=== PATIENT | female | born 1990 | race African-American/Black ===

== ENCOUNTER 2023-09-15 20:37 | Outpatient (REF) | payer OTHER, SELFPAY | END 2023-09-15 20:38 | disposition home or self-care (01) | LOC: LAB 20:37 | PROVIDERS: PCP Physician Assistant; Visit Provider Physician Assistant | DX: Z01.419 Encounter for gynecological examination (general) (routine) without abnormal findings (principal) | CPT/HCPCS: 88175 ==

== ENCOUNTER 2024-01-16 22:58 | Emergency (ER) | payer OTHER, SELFPAY ==
[2024-01-16 23:09] VITALS: BP 131/83; PULSE 84; TEMP 36.8; O2SAT 99; BMI 29.2
[2024-01-16 23:17] VITALS: O2SAT 97
[2024-01-16 23:18] VITALS: BP 121/83; O2SAT 97
[2024-01-16 23:20] VITALS: O2SAT 98
[2024-01-16 23:30] VITALS: BP 119/84; O2SAT 97
--- NOTE | 2024-01-16 23:48 | ED.GENADUL1 ---
HPI HPI - General Adult General Chief complaint: Recheck/Abnormal Lab/Rx Stated complaint: HIGH BP-10 WEEKS PREG Time Seen by Provider: 01/16/24 23:15 Source: patient Mode of arrival: walk-in Limitations: no limitations History of Present Illness HPI narrative: The patient is a 33-year-old G4, P3 female presenting to the emergency department for concern of hypertension. The patient is approximately 10 weeks . She is concerned that her blood pressure is too high. Patient states that during her first , 11 years ago, she had to be hospitalized for high blood pressure. But the following 2 pregnancies she did not have a problem. Patient denies that she drinks any caffeinated beverages such as soda, energy drinks, coffee, or tea. Patient states that she does not use any stimulants. Patient indicates however she does eat chips and a lot of salty foods. Patient at this time is complaining of a dull achy headache in the occiput area of her head. This has been going on for the last couple of days. She took 2 doses of extra strength Tylenol yesterday. It did help with her headache but she states when she gets up and starts moving around again it begins to hurt. The patient states that usually she has low blood pressure and states that her blood pressures usually 97 over 70s. The patient did just purchase a new blood pressure cuff. But today while she was at work, she checked her blood pressure on the machine at [facility]. Her systolic blood pressure was 131 and then upon recheck it was 128. The patient denies any blurry vision, double vision, loss of vision. There is no nausea or vomiting. She has no chest pain or shortness of breath. She has no confusion, trouble thinking, trouble concentrating, numbness or weakness in her extremities. Patient does not have any known history of aneurysms. She states that she is particularly concerned because her mom just in November from hypertension and complications thereof. In reference to the patient's , she is not having any abdominal or pelvic pain. No vaginal discharge or odor. Patient is not having any type of low back pain. 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 Valdez next Friday. Related Data Allergies Allergy/AdvReac Type Severity Reaction Status Date / Time No Known Drug Allergies Allergy Verified 01/16/24 23:08 Opioid HPI Opioid Management Most Recent Opioid Data: Last Pain Scale 4 01/16/24 23:21 01/16/24 Last ED Pain Assessment 01/16/24 23:21 Review of Systems ROS Narrative 10 Systems were reviewed, and unless noted in the HPI, all other systems are reviewed, unremarkable, or noncontributory. [facility] Social History Little interest or pleasure in doing things: not at all Feeling down, depressed, or hopeless: not at all Exam Narrative Exam Narrative: Prior to examining the patient, I have washed with hospital approved and provided Antiseptic Hand Medical Policy Specialist and have also applied gloves.? Prior to touching the patient, I asked for consent to examine the patient.? General: Alert and oriented, well nourished, mild distress. No neck pain or stiffness. Nontoxic. Eye: PERRL, EOMI, normal conjunctiva. 4 mm and reactive HENT: Normocephalic, normal hearing, moist oral mucosa, no scleral icterus, no sinus tenderness. Tympanic membranes are not red, dull, bulging. Neck: Supple, non-tender, no carotid bruits, no JVD, no lymphadenopathy. Lungs: Clear to auscultation and percussion, non-labored respiration. Heart: Normal rate, regular rhythm, no murmur, gallop or edema. Abdomen: Soft, non-tender, non-distended, normal bowel sounds, no masses. Musculoskeletal: Normal range of motion and strength, no tenderness or swelling. Skin: Skin is warm, dry and pink, no rashes or lesions. Neurologic: Awake, alert, and oriented X3, CN II-XII intact. Psychiatric: Cooperative, appropriate mood and affect.? Following the conclusion of the examination, I have washed my hands thoroughly after removing examination gloves. Constitutional Vital Signs, click to edit/add: Last Vital Signs Temp 98.2 F 01/16/24 23:09 Pulse 84 01/16/24 23:09 Resp 18 01/16/24 23:09 BP 119/84 01/16/24 23:30 Pulse Ox 97 01/16/24 23:30 O2 Del Method Room Air 01/16/24 23:09 Course Course Hospital Course: I introduced myself to the patient and began talking with her. She reviewed some of her results with me. She expressed some concerns of why she wanted to be evaluated for hypertension. At this time what I have offered the patient is to do screening laboratories and a urine looking for some hypertensive markers. But the patient at this time states that she feels better after talking with me and will begin to use her newly purchased home cuff to evaluate her blood pressure. I advised her to take it to her veneer stock layer appointment so that she can compare it to that particular office. I did tell the patient that she would not have to worry unless the pressure got higher particularly over 140. I did give the patient some advice about abstaining from salty foods as that might help improve her blood pressure. The patient appears nontoxic in no acute distress and wants to decline any additional studies at this time. I am going to give the patient a work note. Vital Signs Vital signs: Vital Signs Temperature 98.2 F 01/16/24 23:09 Pulse Rate 84 01/16/24 23:09 Respiratory Rate 18 01/16/24 23:09 Blood Pressure 131/83 01/16/24 23:09 Pulse Oximetry 99 01/16/24 23:09 Oxygen Delivery Method Room Air 01/16/24 23:09 Temperature 98.2 F 01/16/24 23:09 Pulse Rate 84 01/16/24 23:09 Respiratory Rate 18 01/16/24 23:09 Blood Pressure 119/84 01/16/24 23:30 Pulse Oximetry 97 01/16/24 23:30 Oxygen Delivery Method Room Air 01/16/24 23:09 Medical Decision Making MDM Narrative Medical decision making narrative: In summary, the patient is a pleasant 33-year-old female presenting for evaluation of hypertension in the setting of first trimester . The patient actually has normal tensive here in the emergency department and we have checked her twice. Patient shows us the values of her blood pressure from earlier today and there is only mild elevation in her blood pressure with a systolic of 131 and 128. The patient does not have any neurologic symptoms at this time. Additional historian: None Plan: Patient will go home and continue to check her blood pressure daily and record them for Dr. Valdez. Patient is told to stay home from work today and relax. Patient is to return if her symptoms worsen or change but at this time she does not need an emergent CT scan of her brain and she is declining blood work and urine analysis. Differential Diagnosis Differential Diagnosis: Hypertensive, hypertensive urgency, hypertensive emergency, preeclampsia Medical Records Medical records reviewed: Yes I reviewed the patient's medical records Lab Data Lab results reviewed: Yes I reviewed the patient's lab results Discharge Plan Discharge Chief Complaint: Recheck/Abnormal Lab/Rx Clinical Impression: Blood pressure check Patient Disposition: Home, Self-Care Time of Disposition Decision: 23:49 Condition: Good Print Language: Luxembourgish Instructions: How to Take a Blood Pressure Reading (ED), Hypertension During (ED) Additional Instructions: You may take Tylenol up to 4 times per day while you are taking the extra-strength formulation. Referrals: Parish Valdez DO [Physician] - 1 week Hilary Aviles NP [Primary Care Provider] - 1 week
--- NOTE | 2024-01-16 23:57 | PC.NURSE ---
i gave this patient verbal and paper discharge orders, this patient voices yes to understanding these. at time of discharge this patient voices no concerns and shows no signs of distress
== END 2024-01-17 00:07 | disposition home or self-care (01) ==
PROVIDERS: Emergency Provider Emergency Medicine; PCP Nurse Practitioner
DX: Z03.79 Encounter for other suspected maternal and fetal conditions ruled out (principal)
CPT/HCPCS: 99281

== ENCOUNTER 2024-01-23 09:39 | Outpatient (OUT) | payer OTHER, SELFPAY ==
--- NOTE | 2024-01-23 09:44 | US_ITS ---
[address] [address] Patient Name: BINTA TANNER MRN: [id number] date: 1990 Sex: F Assigned Patient Location: [facility] Current Patient Location: [facility] Accession/Order Number: [id number] Exam Date: 01/23/2024 09:45 Report Date: 01/23/2024 10:28 At the request of: CHAPINCITO DOMINGO Procedure: US OB transvaginal EXAMINATION: US OB transvaginal HISTORY: MISSED MENSES COMPARISON: No relevant comparison available. FINDINGS: Spears intrauterine gestation Gestational sac: 5.3 cm, 11 weeks 2 days CRL: 4.16 cm, 7 weeks 0 days Yolk sac: 7.4 mm Heart rate: 162 bpm The uterus is normal, anteverted, anteflexed The ovaries are normal in appearance. Clinical age: 11 weeks 2 days Clinical ALEJANDRA: 08/11/2024 Ultrasound age: 11 weeks 0 days Ultrasound ALEJANDRA: 08/13/2024 US/US OB transvaginal IMPRESSION: Viable spears intrauterine gestation measuring 11 weeks 0 days Electronically authenticated by: SESAR REYNOLDS Date: 01/23/2024 10:28
--- OUTSIDE RECORDS SUMMARY | 2024-01-23 09:59 | XMS_ITS | CCD ---
Author Organization [facility] Care Team Providers Care Debt And Budget Counselor Name Role Phone ADAMOWICZ, SAMARA J Unavailable Unavailable ADAMOWICZ, SAMARA J Unavailable Unavailable ADAMOWICZ, SAMARA J Unavailable Unavailable ADAMOWICZ, SAMARA J Unavailable Unavailable ADAMOWICZ, SAMARA J Unavailable Unavailable ADAMOWICZ, SAMARA J Unavailable Unavailable ADAMOWICZ, SAMARA J Unavailable Unavailable ADAMOWICZ, SAMARA J Unavailable Unavailable SEBASTIAN HERRING Attending Unavailable SEBASTIAN HERRING Consulting Unavailable SEBASTIAN HERRING Admitting Unavailable [facility] [place] VELAZ[place] Primary Care Unavailable Traci INTERIOR SYSTEMS CARPENTER-MANUFACTURING ANALYST, Hilary A Primary Care Provi lazarus DONNA DON Attending Unavailable TRACI, HILARY A Attending Unavailable TRACI, HILARY A Referring Unavailable TRACI, HILARY A Primary Care Unavailable TRACI, HILARY A Attending Unavailable TRACI, HILARY A Referring Unavailable TRACI, HILARY A Primary Care Unavailable TRACI, HILARY A Attending Unavailable TRACI, HILARY A Referring Unavailable TRACI, HILARY A Primary Care Unavailable LYNDSEY DOE Attending Unavailable TRACI, HILARY A Referring Unavailable TRACI, HILARY A Primary Care Unavailable TRACI, HILARY A Referring Unavailable TRACI, HILARY A Primary Care Unavailable TRACI, HILARY A Referring Unavailable TRACI, HILARY A Primary Care Unavailable TRACI, HILARY A Referring Unavailable TRACI, HILARY A Primary Care Unavailable SHARDA MONTIEL Referring Unavailable TRACI, HILARY A Primary Care Unavailable TRACI, HILARY A Referring Unavailable TRACI, HILARY A Primary Care Unavailable SHARDA MONTIEL B Attending Unavailable TRACI, HILARY A Referring Unavailable TRACI, HILARY A Primary Care Unavailable TRACI, HILARY A Referring Unavailable TRACI, HILARY A Primary Care Unavailable TRACI, HILARY A Referring Unavailable TRACI, HILARY A Primary Care Unavailable JUAREZ, GLASS Referring Unavailable TRACI, HILARY A Primary Care Unavailable JUAREZ, GLASS Referring Unavailable TRACI, HILARY A Primary Care Unavailable JUAREZ, GLASS Referring Unavailable TRACI, HILARY A Primary Care Unavailable LYNDSEY DOE Attending Unavailable LYNDSEY DOE Referring Unavailable RTACI, HILARY A Primary Care Unavailable DOMINIQUE MOYA Attending Unavailable TRACI, HILARY A Referring Unavailable TRACI, HILARY A Primary Care Unavailable TRACI, HILARY A Primary Care Unavailable RAULITO SIDDIQUI Attending Unavaila brianda Aviles INTERIOR SYSTEMS CARPENTER-MANUFACTURING ANALYST, Hilary A Primary Care Provi lazarus Allergies Allergy Classification Reported Allergen(s) Allergy Type Date of Onset Reaction(s) Facility (15 sources) Sertraline; Translations: [SERTRALINE] Drug Allergy 11-09-2018 [facility] Medications Current Medications Medication Drug Class(es) Dates Sig (Normalized) Sig (Original) [id number] 200 actuat albuterol 0.09 mg/actuat metered dose inhaler (9 sources) beta2-Adrenergic Agonist Start: 11-26-2021 End: 02-20-2023 take 2 puff(s) by inhalation every four hours as needed for wheezing albuterol (PROVENTIL HFA;VENTOLIN HFA) 90 mcg/actuation inhaler Indications: Viral URI with cough Inhale 2 puffs every 4 (four) hours as needed for wheezing. 18 g 0 11/26/2021 02/20/2023 Discontinued Start: 01-22-2021 End: 02-20-2023 take 2 puff(s) by inhalation every six hours as needed for wheezing albuterol (PROVENTIL HFA;VENTOLIN HFA) 90 mcg/actuation inhaler Indications: Reactive airway disease with acute exacerbation, unspecified asthma severity, unspecified whether persistent , Shortness of breath , COVID-19 Inhale 2 puffs every 6 (six) hours as needed for wheezing or shortness of breath. 18 g 0 02/20/2023 Active ascorbic acid 250 mg oral tablet (6 sources) Vitamin C Start: 05-08-2022 take 1 tablet by mouth in the morning ascorbic acid, vitamin C, (vitamin C) 250 mg tablet Take 1 tablet (250 mg total) by mouth in the morning. Take with iron.. 90 tablet 3 05/08/2022 Active azaTHIOprine 50 mg oral tablet (12 sources) Purine Antimetabolite Start: 10-31-2023 take 3 tablets by mouth in the morning azaTHIOprine (IMURAN) 50 mg tablet Take 3 tablets (150 mg total) by mouth in the morning. 270 tablet 1 10/31/2023 Active Start: 09-07-2021 take 3 tablets by mo ut in the morning azaTHIOprine (IMURAN) 50 mg tablet Indications: Crohn's disease of both small and large intestine with intestinal obstruction (CMS-HCC) Take 3 tablets (150 mg total) by mouth in the morning. 90 tablet 3 09/07/2021 Active benzonatate 100 mg oral capsule (6 sources) Non-narcotic Antitussive Start: 11-26-2021 take 1 capsule by mouth every eight hours benzonatate (TESSALON PERLES) 100 mg capsule Take 1 capsule (100 mg total) by mouth every 8 (eight) hours. 21 capsule 0 11/26/2021 Active cholecalciferol 0.125 mg oral tablet (6 sources) Vitamin D Start: 10-01-2021 take 1 tablet by mouth in the morning cholecalciferol, vitamin D3, 5,000 units tablet Take 1 tablet (5,000 Units total) by mouth in the morning. 90 each 3 10/01/2021 Active citalopram 20 mg oral tablet (6 sources) Serotonin Reuptake Inhibitor Start: 09-17-2023 take 1.5 tablets by mouth in the morning citalopram (CeleXA) 20 mg tablet Indications: Current moderate episode of major depressive disorder without prior episode (CMS-HCC) Take 1.5 tablets (30 mg total) by mouth in the morning. 30 tablet 2 09/17/2023 Active 1 ml EPINEPHrine 1 mg/ml injection (1 source) alpha-Adrenergic Agonist, beta-Adrenergic Agonist, Catecholamine Start: 02-06-2023 End: 02-07-2023 EPINEPHrine (ADRENALIN) 1 mg/mL injection FOR ANAPHYLAXIS 0.3 mg folic acid 1 mg oral tablet (13 sources) Start: 10-31-2023 take 1 tablet by mouth in the morning folic acid (FOLVITE) 1 mg tablet Take 1 tablet (1 mg total) by mouth in the morning. 90 tablet 2 10/31/2023 Active Start: 08-02-2021 End: 02-20-2023 take 1 tablet by mouth in the morning folic acid (FOLVITE) 1 mg tablet Take 1 tablet (1 mg total) by mouth in the morning. 90 tablet 2 02/20/2023 Active folic acid 0.4 mg / vitamin b12 1 mg sublingual tablet (3 sources) Vitamin B12 cyanocobalamin/f olic acid (vitamin B05-janse acid) 1,000-400 mcg lozenge B12 0 Active 12 hr guaiFENesin 600 mg extended release oral tablet (1 source) Start: 02-20-19 End: 02-27-19 take 1 tablet by mouth once guaiFENesin (MUCINEX) 600 mg tablet extended release 12hr Indications: Reactive airway disease with acute exacerbation, unspecified asthma severity, unspecified whether persistent , Sinusitis, unspecified chronicity, unspecified location Take 1 tablet (600 mg total) by mouth every 12 (twelve) hours for 7 days. 14 tablet 0 02/20/2023 02/27/2023 Active inFLIXimab 100 mg injection (12 sources) Tumor Necrosis Factor Muriel inFLIXimab (REMICADE ) 10 mg/mL injection Infuse 5 mg/kg into a venous catheter See Admin Instructions. Every 6 weeks Active inFLIXimab-dyyb (INFLECTRA) 100 mg injection Indications: Crohn's disease Infuse 5 mg/kg into a venous catheter once Indications: Crohn's disease. Every 6 weeks Active methylPREDNISolone 125 mg injection (1 source) Corticosteroid Start: 02-06-2023 End: 02-07-2023 methylPREDNISolone sod suc(PF) (Solu-MEDROL) injection 125 mg ondansetron 4 mg oral tablet (3 sources) Serotonin-3 Receptor Antagonist take 1 tablet by mouth every eight hours as needed for nausea and vomiting ondansetron (ZOFRAN) 4 mg tablet Take 1 tablet (4 mg total) by mouth every 8 (eight) hours as needed for nausea or vomiting. Active vitamin b12 1 mg oral tablet (7 sources) Vitamin B12 Start: 05-28-2020 End: 02-20-2023 take 2 tablets by mouth in the morning vitamin B-12 1000 MCG tablet Take 2 tablets (2,000 mcg total) by mouth in the morning. 90 tablet 2 02/20/2023 Active WESTAB PLUS 27 mg iron- 1 mg tablet (6 sources) Start: 06-07-2022 WESTAB PLUS 27 mg iron- 1 mg tablet Completed/Discontinued Medications Medication Drug Class(es) Dates Sig (Normalized) Sig (Original) ferric carboxymaltose (INJECTAFER) 750 mg in sodium chloride 0.9 % 100 mL IVPB (1 source) Start: 02-06-2023 End: 02-06-2023 ferric carboxymaltose (INJECTAFER) 750 mg in sodium chloride 0.9 % 100 mL IVPB inFLIXimab-dyyb (INFLECTRA) 400 mg in sodium chloride 0.9 % 250 mL IVPB (1 source) Start: 04-21-2023 End: 04-21-2023 inFLIXimab-dyyb (INFLECTRA) 400 mg in sodium chloride 0.9 % 250 mL IVPB inFLIXimab-dyyb (INFLECTRA) 5 mg/kg = 400 mg in sodium chloride 0.9 % 250 mL IVPB (1 source) Start: 12-12-2023 End: 12-12-2023 400 mg (rounded from 381 mg = 5 mg/kg 76.2 kg), intravenous, Once, On Fri12/12/23 at 1115, For 1 dose, May have accelerated infusion 100ml/hr for 15 minutes then 300 ml for the remaining 45 minutes (to infuse over an hour). Infuse over at least 2 hours: For 250 mL total volume: 10 mL/hr x 15 min, then 20 mL/hr x 15 min, then 40 mL/hr x 15 min, then 80 mL/hr x 15 min, then 150 mL/hr x 30 min, then 250 mL/hr until infusion complete. Adjust rates respectively for other volumes. Look-alike/sound-ali ke medication - verify indication for use. Administer using 0.2 - 1.2 micron filter. 1000 ml sodium chloride 9 mg/ml injection (3 sources) Start: 04-21-2023 End: 04-21-2023 sodium chloride 0.9 % infusion Start: 02-06-2023 End: 02-07-2023 sodium chloride 0.9 % bolus Problems Active Problems Problem Classification Problem Date Documented Da te Episodic/Chronic Anxiety disorders (15 sources) Anxiety; Translations: [Anxiety disorder, unspecified] Onset: 12-14-2018 12-14-2018 Chronic Asthma (4 sources) Reactive airway disease; Translations: [Unspecified asthma with (acute) exacerbation] Onset: 02-20-2023 02-20-2023 Chronic Deficiency and other anemia (16 sources) Iron deficiency anemia due to blood loss; Translations: [Iron deficiency anemia secondary to blood loss (chronic)] Onset: 07-17-2018 02-06-2023 Chronic Deficiency and other anemia (2 sources) Iron deficiency anemia secondary to blood loss (chronic); Translations: [Iron deficiency anemia secondary to blood loss (chronic)] Onset: 07-17-2018 Chronic Deficiency and other anemia (16 sources) Iron deficiency anemia; Translations: [Iron deficiency anemia, unspecified] Onset: 08-28-2020 02-06-2023 Episodic Immunizations and screening for infectious disease (1 source) Encounter for screening for human papillomavirus (HPV); Translations: [ENC SCREENING HUMAN PAPILLOMAVIRUS] Onset: 05-04-2022 Episodic Malaise and fatigue (1 source) Fatigue; Translations: [Chronic fatigue, unspecified] 12-01-2023 Chronic Mood disorders (20 sources) Reactive depression (situational); Translations: [Major depressive disorder, single episode, unspecified] Onset: 11-09-2018 11-09-2018 Chronic Other aftercare (1 source) Encounter for therapeutic drug level monitoring; Translations: [Encounter for therapeutic drug level monitoring] Onset: 10-31-2023 Episodic Other connective tissue disease (1 source) Cramp in lower limb; Translations: [Cramp and spasm] 12-01-2023 Episodic Other gastrointestinal disorders (16 sources) Malabsorption - iron; Translations: [Intestinal malabsorption, unspecified] Onset: 08-28-2020 02-06-2023 Chronic Other gastrointestinal disorders (1 source) Intestinal malabsorption, unspecified; Translations: [Intestinal malabsorption, unspecified] Onset: 08-28-2020 Chronic Other gastrointestinal disorders (1 source) Constipation, unspecified; Translations: [Constipation, unspecified] Onset: 01-03-2024 Episodic Other gastrointestinal disorders (1 source) Constipation Onset: 01-03-2024 Episodic Other inflammatory condition of skin (12 sources) Scalp psoriasis; 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, unspecified] Onset: 12-14-2018 12-14-2018 Chronic Other screening for suspected conditions (not mental disorders or infectious disease) (4 sources) Encounter for screening for malignant neoplasm of cervix; Translations: [ENC SCREENING MALIG NEOPLASM CERV] Onset: 04-30-2022 Episodic Other upper respiratory infections (2 sources) Sinusitis; Translations: [Chronic sinusitis, unspecified] Onset: 02-20-2023 02-20-2023 Chronic Regional enteritis and ulcerative colitis (19 sources) Crohn's disease of small AND large intestines; Translations: [Crohn's disease of both small and large intestine with intestinal obstruction] Onset: 03-03-2018 03-03-2018 Chronic Residual codes; unclassified (1 source) Noncompliance with treatment; Translations: [Noncompliance] 12-01-2023 Episodic Unclassified (1 source) FMLA Onset: 09-03-2023 Unclassified (2 sources) Outpatient Infusion Onset: 02-06-2023 Unclassified (1 source) Constipation, Early Onset: 01-03-2024 Viral infection (1 source) COVID-19; Translations: [COVID-19] Onset: 01-22-2021 Past or Other Problems Problem Classification Problem Date Documented Da te Episodic/Chronic Deficiency and other anemia (12 sources) Microcytic anemia; Translations: [Iron deficiency anemia, unspecified] Onset: 07-17-2018 07-17-2018 Episodic Deficiency and other anemia (12 sources) Anemia; Translations: [Anemia, unspecified] Onset: 07-02-2019 07-02-2019 Episodic Deficiency and other anemia (2 sources) Iron deficiency anemia, unspecified; Translations: [Iron deficiency anemia, unspecified] Onset: 08-28-2020 Episodic Intestinal obstruction without hernia (20 sources) Intestinal obstruction; Translations: [Unspecified intestinal obstruction, unspecified as to partial versus complete obstruction] Onset: 10-17-2017 Resolved: 08-29-2020 08-29-2020 Episodic Mood disorders (12 sources) Mood disorders Onset: 11-23-2020 Resolved: 09-17-2023 11-23-2020 Nutritional deficiencies (13 sources) Cobalamin deficiency; Translations: [Deficiency of other specified B group vitamins] Onset: 07-08-2019 07-08-2019 Episodic Other bone disease and musculoskeletal deformities (12 sources) Bone cyst of foot; Translations: [Other cyst of bone, unspecified ankle and foot] Onset: 11-11-2022 11-11-2022 Episodic Other complications of (12 sources) Anemia; Translations: [Anemia complicating , unspecified trimester] Onset: 05-15-2017 Resolved: 04-21-2018 04-21-2018 Chronic Other complications of (12 sources) History of fourth degree perineal laceration; Translations: [Supervision of with other poor reproductive or obstetric history, unspecified trimester] Onset: 06-21-2017 Resolved: 08-29-2020 08-29-2020 Episodic Other complications of (12 sources) History of gynecological disorder; Translations: [Supervision of with other poor reproductive or obstetric history, unspecified trimester] Onset: 06-21-2017 Resolved: 08-29-2020 08-29-2020 Episodic Other connective tissue disease (12 sources) Pain in both feet; Translations: [Pain in right foot] Onset: 12-14-2018 12-14-2018 Episodic Other connective tissue disease (12 sources) Chronic pain of right foot; Translations: [Pain in right foot] Onset: 09-18-2022 09-18-2022 Episodic Other disorders of stomach and duodenum (12 sources) Internal duodenal fistula; 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] Onset: 06-04-2018 Resolved: 05-08-2022 05-08-2022 Episodic Other gastrointestinal disorders (12 sources) Diarrhea; Translations: [Diarrhea, unspecified] Onset: 10-17-2017 Resolved: 05-08-2022 05-08-2022 Episodic Other lower respiratory disease (12 sources) Cough; Translations: [Cough] Onset: 12-20-2019 Resolved: 09-27-2020 09-27-2020 Episodic Other lower respiratory disease (13 sources) Dyspnea; Translations: [Shortness of breath] Onset: 01-22-2021 Resolved: 05-08-2022 05-08-2022 Episodic Other lower respiratory disease (1 source) Shortness of breath; Translations: [Shortness of breath] Onset: 02-20-2023 Episodic Other non-traumatic joint disorders (12 sources) Pain in left knee; Translations: [Pain in joint, lower leg] Onset: 12-23-2018 12-23-2018 Episodic Other upper respiratory disease (12 sources) Congestion of nasal sinus; Translations: [Nasal congestion] Onset: 12-21-2020 12-21-2020 Episodic Other upper respiratory infections (12 sources) Sore throat symptom; Translations: [Acute pharyngitis, unspecified] Onset: 12-20-2019 Resolved: 05-08-2022 05-08-2022 Episodic Residual codes; unclassified (12 sources) Difficulty sleeping ; Translations: [Sleep disorder, unspecified] Onset: 01-13-2019 01-13-2019 Episodic Viral infection (13 sources) Disease caused by 2019-nCoV; Translations: [COVID-19] Onset: 01-22-2021 01-22-2021 Episodic Results Test Name Value Interpretation Reference Range Facility KAY FECAL OCCULT BLDon 01-02 Hemoglobin.gastro intestinal Ql (Stl) Negative Normal NEG [facility] Comment on above: Performed By: #### 2 335-8 #### [facility] ([id number]) [address] [place] [address], [place] [address] CBC AND AUTO DIFFon 12-01-19 ABSOLUTE BASOPHIL 0.0 X10E9/L Normal 0.0-0.2 [facility] Comment on above: Performed By: #### C BCA, FEPR, 2276-4 #### [facility] ([id number]) [address] [place] [address] ABSOLUTE NEUTROPHIL 1.9 X10E9/L Normal 1.5-6.6 [facility] Comment on above: Performed By: #### C BCA, FEPR, 2276-4 #### [facility] ([id number]) [address] [place] [address] Basophils/100 WBC (Bld) 0.5 % Normal [facility] Comment on above: Performed By: #### C BCA, FEPR, 2276-4 #### [facility] ([id number]) [address] [address] [place] [address] Eosinophils (Bld) [#/Vol] 0.1 10*3/uL Normal 0.0-0.4 [facility] Comment on above: Performed By: #### C CRUZ, FEPR, 2275-4 #### [facility] ([id number]) [address] [address] [place] [address] Eosinophils/100 WBC (Bld) 2.3 % Normal [facility] Comment on above: Performed By: #### C CRUZ, FEPR, 2275-4 #### [facility] ([id number]) [address] [address] [place] [address] Erythrocyte distribution width (RBC) [Ratio] 13.3 % Normal 11.5-15.0 [facility] Comment on above: Performed By: #### Elizabeth ARROYO, FEPR, 2275-4 #### [facility] ([id number]) [address] [address] [place] [address] Hematocrit (Bld) [Volume fraction] 36.2 % Normal 35-47 [facility] Comment on above: Performed By: #### Elizabeth BCA, FEPR, 2275-4 #### [facility] ([id number]) [address] [address] [place] [address] Hemoglobin (Bld) [Mass/Vol] 12.8 g/dL Normal 11.7-15.5 [facility] Comment on above: Performed By: #### Elizabeth BCA, FEPR, 2275-4 #### [facility] ([id number]) [address] [address] [place] [address] Lymphocytes (Bld) [#/Vol] 2.3 10*3/uL Normal 1.0-3.5 [facility] Comment on above: Performed By: #### Elizabeth ARROYO, FEPR, 2275-4 #### [facility] ([id number]) [address] [address] [place] [address] Lymphocytes/100 WBC (Bld) 47.4 % Normal [facility] Comment on above: Performed By: #### Elizabeth ARROYO FEPR, 2275-05 #### [facility] ([id number]) [address], [address] [place] [address] MCH (RBC) [Entitic mass] 33.2 pg Normal 27-34 [facility] Comment on above: Performed By: #### Elizabeth ARROYO FEPR, 2275- #### [facility] ([id number]) [address], [address] [place] [address] MCHC (RBC) [Mass/Vol] 35.5 g/dL Normal 32-36 [facility] Comment on above: Performed By: #### Elizabeth ARROYO FEPR, 2275- #### [facility] ([id number]) [address], [address] [place] [address] MCV (RBC) [Entitic vol] 94 fL Normal 80-100 [facility] Comment on above: Performed By: #### Elizabeth ARROYO, FEPR, 2275-05 #### [facility] ([id number]) [address], [address] [place] [address] Monocytes (Bld) [#/Vol] 0.4 10*3/uL Normal 0-0.9 [facility] Comment on above: Performed By: #### Elizabeth ARROYO, FEPR, 2275-05 #### [facility] ([id number]) [address], [address] [place] [address] Monocytes/100 WBC (Bld) 9.1 % Normal [facility] Comment on above: Performed By: #### Elizabeth ARROYO, FEPR, 2275-05 #### [facility] ([id number]) [address], [address] [place] [address] Neutrophils/100 WBC (Bld) 40.7 % Normal [facility] Comment on above: Performed By: #### C BCA, FEPR, 6-4 #### [facility] ([id number]) [address], [address] [place] [address] Platelet mean volume (Bld) [Entitic vol] 11.1 fL Normal 7-12 [facility] Comment on above: Performed By: #### Elizabeth BCA, FEPR, 2275-4 #### [facility] ([id number]) [address], [address] [place] [address] Platelets (Bld) [#/Vol] 187 10*3/uL Normal 150-450 [facility] Comment on above: Performed By: #### Elizabeth BCA, FEPR, 2275-4 #### [facility] ([id number]) [address], [facility] [address] [place] [address] RBC COUNT 3.87 X10E12/L Normal 3.80-5.20 [facility] Comment on above: Performed By: #### Elizabeth BCA, FEPR, 2275-4 #### [facility] ([id number]) [address] [facility] [address] [place] [address] WBC (Bld) [#/Vol] 4.8 10*3/uL Normal 4.0-11.0 [facility] Comment on above: Performed By: #### Elizabeth BCA, FEPR, 2275-4 #### [facility] ([id number]) [address], [address] [place] [address] FERRITINon 12-01-2023 Ferritin [Mass/Vol] 12 ng/mL Normal 11-307 [facility] Comment on above: Performed By: #### C BCA, FEPR, 2275-4 #### [facility] ([id number]) [address], [address] [place] [address] IRON PROFILEon 12-01-2023 Iron [Mass/Vol] 74 ug/dL Normal 50-170 [facility] Comment on above: Performed By: #### C BCA, FEPR, 2275-4 #### [facility] ([id number]) [address], [address] [place] [address] IRON BINDING 344 ug/dL Normal 250-425 [facility] Comment on above: Performed By: #### C BCA, FEPR, 2275-4 #### [facility] ([id number]) [address], [address] [place] [address] IRON SATURATION 21 % SATURATION Normal 15-50 [facility] Comment on above: Performed By: #### C BCA, FEPR, 2275-4 #### [facility] ([id number]) [address] [facility] [address] [place] [address] CBC AND AUTO DIFFon 24- 24 ABSOLUTE BASOPHIL 0.0 X10E9/L Normal 0.0-0.2 [facility] Comment on above: Performed By: #### C BCA, FEPR, 4 #### [facility] ([id number]) [address] [address] [place] [address] ABSOLUTE NEUTROPHIL 2.7 X10E9/L Normal 1.5-6.6 [facility] Comment on above: Performed By: #### C BCA, FEPR, 2275-4 #### [facility] ([id number]) [address], [address] [place] [address] Basophils/100 WBC (Bld) 0.4 % Normal [facility] Comment on above: Performed By: #### C BCA, FEPR, 2275-4 #### [facility] ([id number]) [address] [address] Eosinophils (Bld) [#/Vol] 0.1 10*3/uL Normal 0.0-0.4 [facility] Comment on above: Performed By: #### C BCA, FEPR, 2276-4 #### [facility] ([id number]) [address], [address] [place] [address] Eosinophils/100 WBC (Bld) 2.0 % Normal [facility] Comment on above: Performed By: #### C BCA, FEPR, 2275- #### [facility] ([id number]) [address], [address] [place] [address] Erythrocyte distribution width (RBC) [Ratio] 13.5 % Normal 11.5-15.0 [facility] Comment on above: Performed By: #### C CRUZ, FEPR, 2275-05 #### [facility] ([id number]) [address], [address] [place] [address] Hematocrit (Bld) [Volume fraction] 35.2 % Normal 35-47 [facility] Comment on above: Performed By: #### C BCA, FEPR, 2275-05 #### [facility] ([id number]) [address], [address] [place] [address] Hemoglobin (Bld) [Mass/Vol] 12.2 g/dL Normal 11.7-15.5 [facility] Comment on above: Performed By: #### C BCA, FEPR, 2275-05 #### [facility] ([id number]) [address], [address] [place] [address] Lymphocytes (Bld) [#/Vol] 1.9 10*3/uL Normal 1.0-3.5 [facility] Comment on above: Performed By: #### C BCA, FEPR, 2275-4 #### [facility] ([id number]) [address], [address] [place] [address] Lymphocytes/100 WBC (Bld) 36.8 % Normal [facility] Comment on above: Performed By: #### C BCA, FEPR, 2275-4 #### [facility] ([id number]) [address], [address] [place] [address] MCH (RBC) [Entitic mass] 31.9 pg Normal 27-34 [facility] Comment on above: Performed By: #### C CRUZ, FEPR, 2275- #### [facility] ([id number]) [address], [address] [place] [address] MCHC (RBC) [Mass/Vol] 34.5 g/dL Normal 32-36 [facility] Comment on above: Performed By: #### C BCA, FEPR, 2275- #### [facility] ([id number]) [address], [address] [place] [address] MCV (RBC) [Entitic vol] 93 fL Normal 80-100 [facility] Comment on above: Performed By: #### Elizabeth BCA, FEPR, 2275-05 #### [facility] ([id number]) [address], [address] [place] [address] Monocytes (Bld) [#/Vol] 0.4 10*3/uL Normal 0-0.9 [facility] Comment on above: Performed By: #### Elizabeth BCA, FEPR, 2275-05 #### [facility] ([id number]) [address], [address] [place] [address] Monocytes/100 WBC (Bld) 8.3 % Normal [facility] Comment on above: Performed By: #### Elizabeth BCA, FEPR, 2275-05 #### [facility] ([id number]) [address], [address] [place] [address] Neutrophils/100 WBC (Bld) 52.5 % Normal [facility] Comment on above: Performed By: #### Elizabeth BCA, FEPR, 2275- #### [facility] ([id number]) [address], [address] [place] [address] Platelet mean volume (Bld) [Entitic vol] 10.7 fL Normal 7-12 [facility] Comment on above: Performed By: #### C BCA, FEPR, 2275-4 #### [facility] ([id number]) [address], [address] [place] [address] Platelets (Bld) [#/Vol] 198 10*3/uL Normal 150-450 [facility] Comment on above: Performed By: #### C BCA, FEPR, 2275-4 #### [facility] ([id number]) [address], [facility] [address] [place] [address] RBC COUNT 3.81 X10E12/L Normal 3.80-5.20 [facility] Comment on above: Performed By: #### C BCA, FEPR, 2275-4 #### [facility] ([id number]) [address], [facility] [address] [place] [address] WBC (Bld) [#/Vol] 5.2 10*3/uL Normal 4.0-11.0 [facility] Comment on above: Performed By: #### C BCA, FEPR, 2275-4 #### [facility] ([id number]) [address], [address] [place] [address] FERRITINon 08-04-2023 Ferritin [Mass/Vol] 27 ng/mL Normal 11-307 [facility] Comment on above: Performed By: #### C BCA, FEPR, 2275-4 #### [facility] ([id number]) [address], [address] [place] [address] IRON PROFILEon 08-04-2023 Iron [Mass/Vol] 46 ug/dL Low 50-170 [facility] Comment on above: Performed By: #### C BCA, FEPR, 2275-4 #### [facility] ([id number]) [address], [address] [place] [address] IRON BINDING 273 ug/dL Normal 250-425 [facility] Comment on above: Performed By: #### C BCA, FEPR, 2276-4 #### [facility] ([id number]) [address] [place] [address] IRON SATURATION 17 % SATURATION Normal 15-50 [facility] Comment on above: Performed By: #### C BCA, FEPR, 2276-4 #### [facility] ([id number]) [address] [facility] [place] [address] M. tuberculosis stim IFN-g p carrillo (Bld)on 08-04-2023 Mitogen minus Nil Result 9.92 IU/mL Normal [facility] Comment on above: Performed By: #### 7 1775-1 #### [facility] [employer] ([id number]) [address] [facility], Nil Result 0.08 IU/mL Normal [facility] Comment on above: Result Comment: NOTE Test Performed by: [place] [address] Compounder: Celi Fernandez Ph.D.; CLIA# [id number] Performed By: #### 7 1775-1 #### [facility] [employer] ([id number]) [address] [facility], QuantiFERON-Tb Gold Plus Result Negative Normal Negative [facility] Comment on above: Result Comment: NOTE No interferon-gamma response to M. tuberculosis antigens was detected. Latent infection with M. tuberculosis is unlikely. A single negative result does not exclude infection with M. tuberculosis. In patients at high risk for M.tuberculosis infection, a second test should be considered in accordance with the 2017 ATS/IDSA/CDC Clinical Practice Guidelines for Diagnosis of Tuberculosis in Adults and Children [Damaris JOAQUIN et. al. Clin. Infect. Dis. 2017;64(2):111-115]. The reference range for the 'TB1 Ag minus Nil Result' and 'TB2 Ag minus Nil Result' is an Interferon-gamma level <0.35 IU/mL. Performed By: #### 7 1775-1 #### [employer] ([id number]) [address] [facility], TB1 Ag minus Nil Result 0.09 IU/mL Normal [facility] Comment on above: Performed By: #### 7 1775-1 #### [employer] ([id number]) [address] [facility], TB2 Ag minus Nil Result 0.01 IU/mL Normal [facility] Comment on above: Performed By: #### 7 1775-1 #### [employer] ([id number]) [address] [facility], [facility] ACOG PANEL 2: 30 to 65on 05-07-2022 . . Normal [facility] Comment on above: Result Comment: Perf ormed at: WB Performed By: #### 4 [id number] #### [facility] [address] [place] [address] Dr. Bisi Glass Age Gdln ACOG Testing Normal [facility] Comment on above: Performed By: #### 4 [id number] #### [facility] [address] [place] [address] Dr. Bisi Glass DIAGNOSIS: Comment Normal [facility] Comment on above: Result Comment: NEGA TIVE FOR INTRAEPITHELIAL LESION OR MALIGNANCY. Performed at: WB Performed By: #### 4 [id number] #### [facility] [address] [place] [address] Dr. Bisi Glass HPV Aptima Negative Normal Negative [facility] Comment on above: Result Comment: This nucleic acid amplification test detects fourteen high-risk HPV types (16,18,31,33,35,39,45,51,52,56,58,59,66,68) without differentiation. Performed at: =G Performed By: #### 4 [id number] #### [facility] [address] [place] [address] Dr. Bisi Glass HPV Genotype Reflex Comment Normal [facility] Comment on above: Result Comment: Crit eria not met, HPV Genotype not performed. Performed at: WB Performed By: #### 4 [id number] #### [facility] [address] [place] [address] Dr. Bisi Glass Methodology: Comment Normal [facility] Comment on above: Result Comment: This liquid based ThinPrep(R) pap test was screened with the use of an image guided system. Performed at: WB Performed By: #### 4 045098 #### [facility] [address] [place] [address] Dr. Bisi Glass Note: Comment Normal [facility] Comment on above: Result Comment: The Pap smear is a screening test designed to aid in the detection of premalignant and malignant conditions of the uterine cervix. It is not a diagnostic procedure and should not be used as the sole means of detecting cervical cancer. Both false-positive and false-negative reports do occur. . Performed at: WB Performed By: #### 4 [id number] #### [facility] [address] [place] [address] Dr. Bisi Glass Performed by: Comment Normal [facility] [place] Comment on above: Result Comment: Ngozi Hamlin, Oil Burner (ASCP) Performed at: WB Performed By: #### 4 [id number] #### [facility] [address] [place] [address] Dr. Bisi Glass Specimen adequacy: Comment Normal [facility] Comment on above: Result Comment: Sati sfactory for evaluation. Endocervical and/or squamous metaplastic cells (endocervical component) are present. Performed at: WB Performed By: #### 4 [id number] #### [facility] [address] [place] [address] Dr. Bisi Glass CNCOon 02-11-2017 CNCO Letter [facility] Acnctuuc[address] [place], [place] [address]Jykkp: [phone]: [facility] [place], [place] [address]Nijol: [phone]: [facility] [address] [place], [place] [address]Cmueu: [phone]: Toll Free: [phone] [email or web address]/ca ncer Raza Roldan M.D., Jhon Mora M.D.Barry Camarena M.D.Samara Hernandez D.O..Bettie Henry M.D. FACROSaju A. Rajan, M.D.February 11, 2017[facility] [facility] [address]Bnad Ms. Storey,You missed your scheduled appointment on Saturday February 11, 2017. Pleasecall our office to reschedule. If you need to cancel any futureappointments, please call to give us 24 hour notice so that we can offer yourappointment to another patient.Sincerely,Samara Canales M.D. Normal [facility] 12-03-2016 HOSP Infusion [facility] ([facility]) JUAN LUIS STOREY ([id number]) 1990 FDate Time Provider Mnnxlfnpuf50/24/17 1:00 PM CHAIR 1 [facility] During your visit today, we recorded the following information about you: Temperature Pulse Respiration Blood pressure 98.9 degrees 76/minute 18/minute 97/64Referring Provider: SAMARA HERNANDEZ [[id number]]Allergies As of Date: 12/03/2016(No Known Allergies)Date Reviewed: 12/03/2016Reviewed by: Kristi (Rn) JAD Edouard - Fully AssessedPrimary Visit Diagnosis:Anemia, unspecified type [D64.9]Order(s):TREATMENT PARAMETER-NOT NEEDED [[id number]] Order #: [id number]: 1 HEMON NURSING COMMUNICATION [[id number]] Order #: [id number]: 1 STANDING HEMONC NURSING COMMUNICATION [[id number]] Order #: [id number]: 1 STANDING HEMONC NURSING COMMUNICATION [[id number]] Order #: [id number]: 1 STANDING HEMONC NURSING COMMUNICATION [[id number]] Order #: [id number]: 1 STANDING HEMONC NURSING COMMUNICATION [[id number]] Order #: [id number]: 1 STANDING HEMONC NURSING COMMUNICATION [[id number]] Order #: [id number]: 1 STANDING [] iron sucrose 200 mg in NaCl 0.9% 100ml (VENOFER)Disp: Rfl: NaCl 0.9% iv infusionDisp: Rfl: diphenhydrAMINE 50 mg injection (BENADRYL)Disp: Rfl: hydrocortisone sodium succinate 100 mg injection (Solu-CORTEF)Disp: Rfl: EPINEPHrine 1 mg/mL (1 mL) 0.3 mg injectionDisp: Rfl:Prescriptions as of 12/03/2016 Sig: BUPROPION XL 150 MG TAB HYDROXYZINE HCL 50 MG TABLET SERTRALINE 50 MG TABLET Take 50 mg by mouth once madhuri* CYCLOBENZAPRINE 10 MG TABLET Take 10 mg by mouth three mariano* TRAZODONE 50 MG TABLET Take 50 mg by mouth as needed.Problem List As Of Date 12/03/2016 Noted Resolved Anemia [D64.9] INVALID FOR*Prescriptions ordered this encounter Disp Refills Start End IRON SUCROSE 200 MG IN 100 ML NS IVP* 12/03/2016 12/03/2016 Route: INTRAVENOUS SODIUM CHLORIDE 0.9 % INTRAVENOUS SO* 12/03/2016 Cmt: Inform physician Route: INTRAVENOUS DIPHENHYDRAMINE 50 MG/ML INJECTION S* 12/03/2016 Route: INTRAVENOUS HYDROCORTISONE SODIUM SUCCINATE 100 * 12/03/2016 Route: INTRAVENOUS EPINEPHRINE 1 MG/ML (1 ML) INJECTION* 12/03/2016 Route: INTRAMUSCULAEncounter Number: [id number] Status:Closed by KRISTI EDOUARD on 12/03/16 [facility] CNOVSPon 11-19-2016 CNOVSP Visit (SP) Office (HEMACL) JUAN LUIS STOREY ([id number]) 1990 [facility] Time Provider Mkgtjxxofu47/10/17 11:00 AM SAMARA HERNANDEZ HEMACL During your visit today, we recorded the following information about you: Temperature Pulse Respiration Blood pressure 97.8 degrees 78/minute 18/minute 96/61 Weight Height 59.6 kg 1.632 Clara Berger 11/19/2016 11:15 AM SignedPatient states feeling more fatigue.Samara Hernandez DO 11/23/2016 9:43 AM SignedPATIENT NAME: Juan Luis Richey RaleighMRN: [id number] PHYSICIAN: IFTIKHAR CERDA[address] [place] [id number] CARE PHYSICIAN: Iftikhar CerdaOTHER PHYSICIANS:CHIEF COMPLAINT: Anemia, unspecified type (primary encounter diagnosis)ASSESSMENT/PLAN: (D64.9) Anemia, unspecified type (primary encounter diagnosis)1. Anemia, secondary to iron deficiency secondary to chronic blood loss..Recurrent iron deficiencynormal vitamin B12 and folate levels.Seems to have very significant microcytosis and history of heavy periods.Suspect blood loss anemia secondary to heavy periods.May through June 2016 completed IV iron therapy 4 doses intravenously weekly.Second dose required slowing the infusion rate secondary to GI complaints.Near resolution of pica symptoms, hemoglobin improved to 10.6. She seems tostill be fairly iron deficient on repeat laboratory testing also I would liketo keep a close eye on her. She has continued blood loss.We will complete reevaluation in 12 weeks after she has completed her firsttrimester if she is in fact . If she is not I do not expecther to become profoundly anemic and that time but she has been instructed tocall us if she feels any worse.There is suspicion that she may also have difficulty absorbing iron. Negativeceliac disease serologic markers.Visit (SP) Office on 11/19/16-buPROPion XL (WELLBUTRIN XL) 150 mg 24 hr tablet-hydrOXYzine HCl (ATARAX) 50 mg tablet Return in about 3 months (around 02/19/2017), or f/u 3 months. thats it.. HISTORY OF PRESENT ILLNESS: This is a 26year old -Nigerian femaleCBC from 05/22/16 reveals white blood cell count 5.5, hemoglobin 7.2, plateletcount 245 MCV 63.1.Iron studies revealed serum iron extremely low at 11 iron saturation alsoextremely low at 3% the ferritinwas not tested. Past medical history ofanxiety, medications include iron, sertraline. . Was having very heavyperiods prior to February was wearing adult diapers and still leaking she hasnot had any major heavy periods since February. She follows with ob, but hasntseen them yet this year. Dr. Mooney. Does not tolerate oral iron wellsecondary to GI side effects including vomiting.Has had pretty severe anemia since she had her kids and even prior to that.Had history of iron infusions in November 2012 and was in hospital for a monthprior to of her first child.Also needed iron infusions with her second kid in dec 2014.Works a [employer] service.June 04, 2016Eats a bag of ice per week basically. Otherwise she does not seem verysymptomatic from her anemia.July 30, 2016 not eating ice. She doesn't feel a lot different otherwise. Still a bittired. Less than previously. Periods settle down a bit. Has not seen yet, scheduled for sometime this month.After her second iron infusion she had pretty severe constipation abdominalbloating.November 19, 2016 add on visit for recurrent iron deficiency.Periods irregular. July through Oct. Very light for a few days, then veryheavy for a few days. Then back to light for a few days. No period since[place]. Eating ice a litle bit. May be , has ob visit today.Vitals: BP 96/61 Pulse 78 Temp (Src) 97.8 (Oral) Resp 18 Ht 5'4.252ANDquot; (1.63m) Wt 131 lb 8 oz (59.6kg) BMI 22.40 kg/(m2). Bodysurface area is 1.64 meters squared. REVIEW OF SYSTEMS PHYSICAL EXAM ECOG PS: 0 NEGATIVES POSITIVES NEGATIVES POSITIVESGEN: fevers, sweats, chills. Overall feels well. pica symptoms seemed toresolve. Continued fatigue. GEN: Well appearing, alert, in no acutedistress, appears stated ageSKIN: lesions, rash, itching. SKIN: Normal color, texture, turgor, no rashesor lesionsHEENT: significant headaches, changes in hearing, changes in vision, nosebleeds. ENT: No scleral icterus. NECK: Supple, no thyromegaly, no JVD.: dysuria, frequency or incontinence. continued irregular periods. Seehistory of present illness. LYMPH: No cervical, supraclavicular, axillary,inguinal adenopathy.RESP: dyspnea, cough, wheezing. LUNG: Clear to auscultation, no wheezing ralesor rhonchiCARD: chest pain, leg swelling, palpitations. HEART: Regular. No murmurs,gallop, or rubs. No ectopy.GI: abdominal pain, nausea, vomiting, diarrhea, constipation, melena,hematochezia. ABDM: Soft. Non-tender. Non-distended. Bowel sounds normal.No masses. No hepatosplenomegaly.HEME: prolonged bleeding, bruising, adenopathy. EXT: No clubbing, cyanosisor edema.MUSC: joint pain or swelling. MUSC: No joint swelling, deformity, ortenderness.NEURO: syncope, seizures, peripheral numbness or tingling. BACK: Notenderness to palpation. No flank tenderness.MEDICATIONS:buP ROPion XL (WELLBUTRIN XL) 150 mg 24 hr tablethydrOXYzine HCl (ATARAX) 50 mg tabletsertraline (ZOLOFT) 50 mg tablet Take 50 mg by mouth once daily.cyclobenzaprine (FLEXERIL) 10 mg tablet Take 10 mg by mouth three times dailyas needed.traZODone (DESYREL) 50 mg tablet Take 50 mg by mouth as needed.ALLERGIES: ALLERGIESNo Known AllergiesPAST MEDICAL HISTORYDiagnosis Date- AnemiaNo past surgical history on file.No family history on file.SOCIAL HISTORY:Social HistorySubstance Use Topics- Smoking status: Never Smoker- Smokeless tobacco: Never Used- Alcohol use NoCOUNSELING:I discussed with Juan Luis the natural history, treated course, and prognosis ofAnemia, unspecified type (primary encounter diagnosis); my impression as wellas the rationale, logistics, risks, benefits, and alternatives to themanagement options noted above; and my recommendations listed below. Thepatient Juan Luis Storey verbalized understanding and agreed with theserecommendations and plan. I answered all questions satisfactorily..Mariano Hernandez D.O.Medical OncologistGlen Gardner, OhioReferring Provider: SAMARA HERNANDEZ [[id number]]Allergies As of Date: 11/19/2016(No Known Allergies)Date Reviewed: 11/19/2016Reviewed by: Huong Berger - Fully AssessedReason for Visit: Anemia [6] Cmt: follow upPrimary Visit Diagnosis:Anemia, unspecified type [D64.9]Disposition: Return in about 3 months (around 02/19/2017), or f/u 3 months. thats it..Follow-up and Disposition History RecordedPrescriptions as of 11/19/2016 Sig: BUPROPION XL 150 MG TAB HYDROXYZINE HCL 50 MG TABLET SERTRALINE 50 MG TABLET Take 50 mg by mouth once madhuri* CYCLOBENZAPRINE 10 MG TABLET Take 10 mg by mouth three mariano* TRAZODONE 50 MG TABLET Take 50 mg by mouth as needed.Medication notes this encounter BUPROPION XL 150 MG TAB >> Huong Berger 11/19/2016 11:15 AM >> WANG MayNov 19, 2016 11:15 AM Received from: External Pharmacy HYDROXYZINE HCL 50 MG TABLET >> Huong Berger 11/19/2016 11:15 AM >> WANG MayNov 19, 2016 11:15 AM Received from: External PharmacyProblem List As Of Date 11/19/2016 Noted Resolved Anemia [D64.9] INVALID FOR*Visit Notes:>> Huong Berger FriNov 19, 2016 11:15 AM Status: SignedPatient states feeling more fatigue.Encounter Status:Closed by SAMARA HERNANDEZ DO on 11/23/16 Normal [facility] PROGRESSon 11-19-2016 PROGRESS HNO ID: [id number] thor: Samara Calvilloe: (none)Author Type: PhysicianType: Progress NotesFiled: 11/23/2016 9:43 AMNote Text:PATIENT NAME: Juan Luis StoreyMRN: [id number] PHYSICIAN: IFTIKHAR CERDA[address] [place] [address] CARE PHYSICIAN: Iftikhar CerdaOTHER PHYSICIANS:CHIEF COMPLAINT: Anemia, unspecified type (primary encounter diagnosis)ASSESSMENT/PLAN: (D64.9) Anemia, unspecified type (primary encounter diagnosis)1. Anemia, secondary to iron deficiency secondary to chronic blood loss..Recurrent iron deficiencynormal vitamin B12 and folate levels.Seems to have very significant microcytosis and history of heavy periods.Suspect blood loss anemia secondary to heavy periods.May through June 2016 completed IV iron therapy 4 doses intravenouslyweekly. Second dose required slowing the infusion rate secondary to GIcomplaints.Near resolution of pica symptoms, hemoglobin improved to 10.6. She seemsto still be fairly iron deficient on repeat laboratory testing also Iwould like to keep a close eye on her. She has continued blood loss.We will complete reevaluation in 12 weeks after she has completed herfirst trimester if she is in fact . If she is not I donot expect her to become profoundly anemic and that time but she has beeninstructed to call us if she feels any worse.There is suspicion that she may also have difficulty absorbing iron.Negative celiac disease serologic markers.Visit (SP) Office on 11/19/16-buPROPion XL (WELLBUTRIN XL) 150 mg 24 hr tablet-hydrOXYzine HCl (ATARAX) 50 mg tablet Return in about 3 months (around 02/19/2017), or f/u 3 months. thats it.. HISTORY OF PRESENT ILLNESS: This is a 26year old -Nigerian femaleCBC from 05/22/16 reveals white blood cell count 5.5, hemoglobin 7.2,platelet count 245 MCV 63.1.Iron studies revealed serum iron extremely low at 11 iron saturation alsoextremely low at 3% the ferritinwas not tested. Past medical history ofanxiety, medications include iron, sertraline. . Was having veryheavy periods prior to February was wearing adult diapers and still leakingshe has not had any major heavy periods since February. She follows withob, but hasnt seen them yet this year. Dr. Mooney. Does not tolerateoral iron well secondary to GI side effects including vomiting.Has had pretty severe anemia since she had her kids and even prior tothat. Had history of iron infusions in November 2012 and was in hospitalfor a month prior to of her first child.Also needed iron infusions with her second kid in dec 2014.Works a [employer] service.June 04, 2016Eats a bag of ice per week basically. Otherwise she does not seem verysymptomatic from her anemia.July 30, 2016 not eating ice. She doesn't feel a lot different otherwise. Still a bittired. Less than previously. Periods settle down a bit. Has not seenDr. Mooney yet, scheduled for sometime this month.After her second iron infusion she had pretty severe constipationabdominal bloating.November 19, 2016 add on visit for recurrent iron deficiency.Periods irregular. July through Oct. Very light for a few days, thenvery heavy for a few days. Then back to light for a few days. No periodsince october 07. Eating ice a litle bit. May be , has ob visittoday.Vitals: BP 96/61 Pulse 78 Temp (Src) 97.8 (Oral) Resp 18 Ht 5'4.252 (1.63m) Wt 131 lb 8 oz (59.6kg) BMI 22.40 kg/(m2). Bodysurface area is 1.64 meters squared. REVIEW OF SYSTEMS PHYSICAL EXAM ECOG PS: 0 NEGATIVES POSITIVES NEGATIVES POSITIVESGEN: fevers, sweats, chills. Overall feels well. pica symptoms seemedto resolve. Continued fatigue. GEN: Well appearing, alert, in no acutedistress, appears stated ageSKIN: lesions, rash, itching. SKIN: Normal color, texture, turgor, norashes or lesionsHEENT: significant headaches, changes in hearing, changes in vision, nosebleeds. ENT: No scleral icterus. NECK: Supple, no thyromegaly, no JVD.: dysuria, frequency or incontinence. continued irregular periods. Seehistory of present illness. LYMPH: No cervical, supraclavicular,axillary, inguinal adenopathy.RESP: dyspnea, cough, wheezing. LUNG: Clear to auscultation, no wheezingrales or rhonchiCARD: chest pain, leg swelling, palpitations. HEART: Regular. Nomurmurs, gallop, or rubs. No ectopy.GI: abdominal pain, nausea, vomiting, diarrhea, constipation, melena,hematochezia. ABDM: Soft. Non-tender. Non-distended. Bowel soundsnormal. No masses. No hepatosplenomegaly.HEME: prolonged bleeding, bruising, adenopathy. EXT: No clubbing,cyanosis or edema.MUSC: joint pain or swelling. MUSC: No joint swelling, deformity, ortenderness.NEURO: syncope, seizures, peripheral numbness or tingling. BACK: Notenderness to palpation. No flank tenderness.MEDICATIONS:buP ROPion XL (WELLBUTRIN XL) 150 mg 24 hr tablethydrOXYzine HCl (ATARAX) 50 mg tabletsertraline (ZOLOFT) 50 mg tablet Take 50 mg by mouth once daily.cyclobenzaprine (FLEXERIL) 10 mg tablet Take 10 mg by mouth three timesdaily as needed.traZODone (DESYREL) 50 mg tablet Take 50 mg by mouth as needed.ALLERGIES: ALLERGIESNo Known AllergiesPAST MEDICAL HISTORYDiagnosis Date- AnemiaNo past surgical history on file.No family history on file.SOCIAL HISTORY:Social HistorySubstance Use Topics- Smoking status: Never Smoker- Smokeless tobacco: Never Used- Alcohol use NoCOUNSELING:I discussed with Juan Luis the natural history, treated course, and prognosisof Anemia, unspecified type (primary encounter diagnosis); my impressionas well as the rationale, logistics, risks, benefits, and alternatives tothe management options noted above; and my recommendations listed below.The patient Juan Luis Storey verbalized understanding and agreed withthese recommendations and plan. I answered all questions satisfactorily..Mariano Hernandez D.O.Medical OncologistGlen [place], [place] Normal [facility] Remote CBCDIF (for [facility] use o nly)on 11-19-2016 Abs Baso 0.02 k/uL Normal <0.11 [facility] Abs [place] 0.40 k/uL Normal 0.00-0.86 [facility] Abs Neut 3.13 k/uL Normal 1.45-7.50 [facility] Basophils/100 WBC Auto (Bld) 0.4 % Normal [facility] Eosinophils 0.05 10*3/uL Normal <0.46 [facility] Eosinophils/100 leukocytes 0.9 % Normal [facility] Erythrocyte distribution width Auto Ratio (RBC) 13.5 % Normal 11.5-15.0 [facility] Erythrocytes (RBC) 3.87 10*6/uL Low 3.90-5.20 [facility] Hematocrit (HCT) 33.0 % Low 36.0-46.0 [facility] Hemoglobin mass conc (Bld) 10.5 g/dL Low 11.5-15.5 [facility] Lymphocytes 1.70 10*3/uL Normal 1.00-4.00 [facility] Lymphocytes/100 leukocytes 32.1 % Normal [facility] MCH 27.1 pG Normal 26.0-34.0 [facility] MCHC mass conc (RBC) 31.8 g/dL Normal 30.5-36.0 [facility] MCV 85.3 fL Normal 80.0-100.0 [facility] Monocytes/100 leukocytes 7.5 % Normal [facility] Neutrophils/100 WBC Auto (Bld) 59.1 % Normal [facility] Platelet mean volume (PMV) 11.0 fL Normal 9.0-12.7 [facility] Platelets 288 10*3/uL Normal 150-400 [facility] WBC (Leukocytes) 5.30 10*3/uL Normal 3.70-11.00 [facility] Remote iSTAT BMP (for [facility] us e only)on 11-19-2016 Anion gap 11 mmol/L Normal 0-15 [facility] BUN (urea nitrogen) 12 mg/dL Normal 8-25 [facility] Chloride 105 mmol/L Normal 98-110 [facility] CO2 24 mmol/L Normal 23-32 [facility] Creatinine 0.70 mg/dL Normal 0.70-1.40 [facility] eGFR (non-black) mL/min/{1.73_m2} Normal [facility] Comment on above: Result Comment: eGFR (Estimated GFR) Units of measure: mL/min/1.73 meters squaredeGFR is derived from the reexpressed MDRD Study equation using the following parameters: serum creatinine, age, gender and race. The creatinine assay has been calibrated to be traceable to IDMS.An eGFR <60 mL/min/1.73m2 for >3 months is consistent with chronic kidney disease. Refer to KDOQI guidelines for clinical interpretation.In patients with unstable renal function, e.g. those with acute kidney injury, the eGFR may not accurately reflect actual GFR. Glucose mass conc 79 mg/dL Normal 65-100 [facility] Ionized Calcium, WB 1.14 mmol/L Normal 1.08-1.30 [facility] Comment on above: Result Comment: Plea se note: This value represents ionized calcium not total calcium. Potassium molar conc 4.0 mmol/L Normal 3.5-5.0 [facility] Sodium 140 mmol/L Normal 132-148 [facility] Ferritinon 10-29-2016 Ferritin 19.8 ng/mL Normal 14.7-205.1 [facility] Comment on above: Performed By: #### I CHERYL FERR ####[facility] [address] [place], [place] [phone] Iron and TIBCon 10-29-2016 Iron 21 ug/dL Low 41-186 [facility] Comment on above: Performed By: #### I CHERYL FERR ####[facility] [address] [place], [place] [phone] TIBC 331 ug/dL Normal 232-386 [facility] Comment on above: Performed By: #### I CHERYL, FERR ####[facility] [address] [place], [place] [phone] Transferrin Saturatn 6 % Low 15-57 [facility] Comment on above: Performed By: #### I CHERYL, FERR ####[facility] [address] [place], [place] [phone] Remote CBCDIF (for [facility] use o nly)on 10-29-2016 Abs Baso 0.02 k/uL Normal 0.00-0.10 [facility] Abs [place] 0.42 k/uL Normal 0.00-0.86 [facility] Abs Neut 3.06 k/uL Normal 1.45-7.50 [facility] Basophils/100 WBC Auto (Bld) 0.3 % Normal [facility] Eosinophils 0.11 10*3/uL Normal 0.00-0.45 [facility] Eosinophils/100 leukocytes 1.8 % Normal [facility] Erythrocyte distribution width Auto Ratio (RBC) 12.9 % Normal 11.5-15.0 [facility] Erythrocytes (RBC) 3.90 10*6/uL Normal 3.90-5.20 [facility] Hematocrit (HCT) 34.0 % Low 36.0-46.0 [facility] Hemoglobin mass conc (Bld) 10.8 g/dL Low 11.5-15.5 [facility] Lymphocytes 2.37 10*3/uL Normal 1.00-4.00 [facility] Lymphocytes/100 leukocytes 39.6 % Normal [facility] MCH 27.7 pG Normal 26.0-34.0 [facility] MCHC mass conc (RBC) 31.8 g/dL Normal 30.5-36.0 [facility] MCV 87.2 fL Normal 80.0-100.0 [facility] Monocytes/100 leukocytes 7.0 % Normal [facility] Neutrophils/100 WBC Auto (Bld) 51.3 % Normal [facility] Platelet mean volume (PMV) 10.8 fL Normal 9.0-12.7 [facility] Platelets 268 10*3/uL Normal 150-400 [facility] WBC (Leukocytes) 5.98 10*3/uL Normal 3.70-11.00 [facility] Remote iSTAT BMP (for [facility] us e only)on 10-29-2016 Anion gap 11 mmol/L Normal 0-15 [facility] BUN (urea nitrogen) 9 mg/dL Normal 8-25 [facility] Chloride 104 mmol/L Normal 98-110 [facility] CO2 26 mmol/L Normal 23-32 [facility] Creatinine 0.70 mg/dL Normal 0.70-1.40 [facility] eGFR (non-black) mL/min/{1.73_m2} Normal [facility] Comment on above: Result Comment: eGFR (Estimated GFR) Units of measure: mL/min/1.73 meters squaredeGFR is derived from the reexpressed MDRD Study equation using the following parameters: serum creatinine, age, gender and race. The creatinine assay has been calibrated to be traceable to IDMS.An eGFR <60 mL/min/1.73m2 for >3 months is consistent with chronic kidney disease. Refer to KDOQI guidelines for clinical interpretation.In patients with unstable renal function, e.g. those with acute kidney injury, the eGFR may not accurately reflect actual GFR. Glucose mass conc 83 mg/dL Normal 65-100 [facility] Ionized Calcium, WB 1.16 mmol/L Normal 1.08-1.30 [facility] Comment on above: Result Comment: Plea se note: This value represents ionized calcium not total calcium. Potassium molar conc 3.8 mmol/L Normal 3.5-5.0 [facility] Sodium 141 mmol/L Normal 132-148 [facility] Ferritinon 10-01-2016 Ferritin 9.1 ng/mL Low 14.7-205.1 [facility] Comment on above: Performed By: #### I CHERYL FERR ####[facility] [address] [place], [place] [phone] Iron and TIBCon 10-01-2016 Iron 34 ug/dL Low 41-186 [facility] Comment on above: Performed By: #### I CHERYL, FERR ####[facility] [address] [place] [place], [place] [phone] TIBC 316 ug/dL Normal 232-386 [facility] Comment on above: Performed By: #### I CHERYL, FERR ####[facility] [address] [place], [place] [phone] Transferrin Saturatn 11 % Low 15-57 [facility] Comment on above: Performed By: #### I CHERYL, FERR ####[facility] [address] [place], [place] [phone] Remote CBCDIF (for [facility] use o nly)on 10-01-2016 Abs Baso 0.02 k/uL Normal 0.00-0.10 [facility] Abs [place] 0.53 k/uL Normal 0.00-0.86 [facility] Abs Neut 2.48 k/uL Normal 1.45-7.50 [facility] Basophils/100 WBC Auto (Bld) 0.4 % Normal [facility] Eosinophils 0.09 10*3/uL Normal 0.00-0.45 [facility] Eosinophils/100 leukocytes 1.6 % Normal [facility] Erythrocyte distribution width Auto Ratio (RBC) 13.7 % Normal 11.5-15.0 [facility] Erythrocytes (RBC) 3.85 10*6/uL Low 3.90-5.20 [facility] Hematocrit (HCT) 33.5 % Low 36.0-46.0 [facility] Hemoglobin mass conc (Bld) 10.7 g/dL Low 11.5-15.5 [facility] Lymphocytes 2.36 10*3/uL Normal 1.00-4.00 [facility] Lymphocytes/100 leukocytes 43.1 % Normal [facility] MCH 27.8 pG Normal 26.0-34.0 [facility] MCHC mass conc (RBC) 31.9 g/dL Normal 30.5-36.0 [facility] MCV 87.0 fL Normal 80.0-100.0 [facility] Monocytes/100 leukocytes 9.7 % Normal [facility] Neutrophils/100 WBC Auto (Bld) 45.2 % Normal [facility] Platelet mean volume (PMV) 10.8 fL Normal 9.0-12.7 [facility] Platelets 282 10*3/uL Normal 150-400 [facility] WBC (Leukocytes) 5.48 10*3/uL Normal 3.70-11.00 [facility] Remote iSTAT BMP (for [facility] us e only)on 10-01-2016 Anion gap 13 mmol/L Normal 0-15 [facility] BUN (urea nitrogen) 14 mg/dL Normal 8-25 [facility] Chloride 102 mmol/L Normal 98-110 [facility] CO2 24 mmol/L Normal 23-32 [facility] Creatinine 0.70 mg/dL Normal 0.70-1.40 [facility] eGFR (non-black) mL/min/{1.73_m2} Normal [facility] Comment on above: Result Comment: eGFR (Estimated GFR) Units of measure: mL/min/1.73 meters squaredeGFR is derived from the reexpressed MDRD Study equation using the following parameters: serum creatinine, age, gender and race. The creatinine assay has been calibrated to be traceable to IDMS.An eGFR <60 mL/min/1.73m2 for >3 months is consistent with chronic kidney disease. Refer to KDOQI guidelines for clinical interpretation.In patients with unstable renal function, e.g. those with acute kidney injury, the eGFR may not accurately reflect actual GFR. Glucose mass conc 93 mg/dL Normal 65-100 [facility] Ionized Calcium, WB 1.14 mmol/L Normal 1.08-1.30 [facility] Comment on above: Result Comment: Plea se note: This value represents ionized calcium not total calcium. Potassium molar conc 3.7 mmol/L Normal 3.5-5.0 [facility] Sodium 139 mmol/L Normal 132-148 [facility] Remote CBCDIF (for [facility] use o nly)on 08-29-2016 Abs Baso 0.02 k/uL Normal 0.00-0.10 [facility] Abs [place] 0.52 k/uL Normal 0.00-0.86 [facility] Abs Neut 3.37 k/uL Normal 1.45-7.50 [facility] Basophils/100 WBC Auto (Bld) 0.3 % Normal [facility] Eosinophils 0.10 10*3/uL Normal 0.00-0.45 [facility] Eosinophils/100 leukocytes 1.7 % Normal [facility] Erythrocyte distribution width Auto Ratio (RBC) 18.7 % High 11.5-15.0 [facility] Erythrocytes (RBC) 3.97 10*6/uL Normal 3.90-5.20 [facility] Hematocrit (HCT) 33.0 % Low 36.0-46.0 [facility] Hemoglobin mass conc (Bld) 10.5 g/dL Low 11.5-15.5 [facility] Lymphocytes 1.92 10*3/uL Normal 1.00-4.00 [facility] Lymphocytes/100 leukocytes 32.4 % Normal [facility] MCH 26.4 pG Normal 26.0-34.0 [facility] MCHC mass conc (RBC) 31.8 g/dL Normal 30.5-36.0 [facility] MCV 83.1 fL Normal 80.0-100.0 [facility] Monocytes/100 leukocytes 8.8 % Normal [facility] Neutrophils/100 WBC Auto (Bld) 56.8 % Normal [facility] Platelet mean volume (PMV) 10.0 fL Normal 9.0-12.7 [facility] Platelets 263 10*3/uL Normal 150-400 [facility] WBC (Leukocytes) 5.93 10*3/uL Normal 3.70-11.00 [facility] Remote iSTAT BMP (for [facility] us e only)on 08-29-2016 Anion gap 12 mmol/L Normal 0-15 [facility] BUN (urea nitrogen) 12 mg/dL Normal 8-25 [facility] Chloride 104 mmol/L Normal 98-110 [facility] CO2 24 mmol/L Normal 23-32 [facility] Creatinine 0.80 mg/dL Normal 0.70-1.40 [facility] eGFR (non-black) mL/min/{1.73_m2} Normal [facility] Comment on above: Result Comment: eGFR (Estimated GFR) Units of measure: mL/min/1.73 meters squaredeGFR is derived from the reexpressed MDRD Study equation using the following parameters: serum creatinine, age, gender and race. The creatinine assay has been calibrated to be traceable to IDMS.An eGFR <60 mL/min/1.73m2 for >3 months is consistent with chronic kidney disease. Refer to KDOQI guidelines for clinical interpretation.In patients with unstable renal function, e.g. those with acute kidney injury, the eGFR may not accurately reflect actual GFR. Glucose mass conc 91 mg/dL Normal 65-100 [facility] Ionized Calcium, WB 1.14 mmol/L Normal 1.08-1.30 [facility] Comment on above: Result Comment: Lore reyes note: This value represents ionized calcium not total calcium. Potassium molar conc 3.7 mmol/L Normal 3.5-5.0 [facility] Sodium 140 mmol/L Normal 132-148 [facility] Vital Signs Date Time Vital Sign Value Performing Clinician Facility 12-12-2023 11:50-0400 Body temperature 98.91 [degF] [address] 12-12-2023 11:50-0400 Diastolic blood pressure 66 mm[Hg] [address] 12-12-2023 11:50-0400 Heart rate 92 /min [address] 12-12-2023 11:50-0400 Respiratory rate 18 /min [address] 12-12-2023 11:50-0400 Systolic blood pressure 100 mm[Hg] [address] 12-12-2023 10:31-0400 Body mass index (BMI) [Ratio] 27.96 kg/m2 [address] 12-12-2023 10:31-0400 Body weight 76.[address] 12-01-2023 14:25-0400 Body height 165.1 cm Dominique Moya APRN-MANUFACTURING ANALYST Work Phone: [facility] 12-01-2023 14:25-0400 Body mass index (BMI) [Ratio] 27.89 kg/m2 Dominique Josh INTERIOR SYSTEMS CARPENTER-MANUFACTURING ANALYST Work Phone: [facility] 12-01-2023 14:25-0400 Body temperature 98.8 [degF] Dominique Josh INTERIOR SYSTEMS CARPENTER-MANUFACTURING ANALYST Work Phone: [facility] 12-01-2023 14:25-0400 Body weight 76.02 kg Dominique Josh INTERIOR SYSTEMS CARPENTER-MANUFACTURING ANALYST Work Phone: [facility] 12-01-2023 14:25-0400 Diastolic blood pressure 76 mm[Hg] Dominique Josh INTERIOR SYSTEMS CARPENTER-MANUFACTURING ANALYST Work Phone: [facility] 12-01-2023 14:25-0400 Heart rate 71 /min Dominique Josh INTERIOR SYSTEMS CARPENTER-MANUFACTURING ANALYST Work Phone: [facility] 12-01-2023 14:25-0400 Respiratory rate 16 /min Dominique Josh INTERIOR SYSTEMS CARPENTER-MANUFACTURING ANALYST Work Phone: [facility] 12-01-2023 14:25-0400 SaO2% (BldA) [Mass fraction] 99 % Dominique Josh INTERIOR SYSTEMS CARPENTER-MANUFACTURING ANALYST Work Phone: [facility] 12-01-2023 14:25-0400 Systolic blood pressure 111 mm[Hg] Dominique Josh INTERIOR SYSTEMS CARPENTER-MANUFACTURING ANALYST Work Phone: [facility] 04-21-2023 13:05-0400 Body temperature 97.81 [degF] Wl [address] [facility] 04-21-2023 13:05-0400 Diastolic blood pressure 75 mm[Hg] [facility] 4 [facility] 04-21-2023 13:05-0400 Heart rate 78 /min [facility] 4 [facility] 04-21-2023 13:05-0400 Respiratory rate 20 /min [facility] [address] [facility] 04-21-2023 13:05-0400 Systolic blood pressure 117 mm[Hg] [facility] 4 [facility] 04-21-2023 10:29-0400 Body mass index (BMI) [Ratio] 27.89 kg/m2 [facility] 4 [facility] 04-21-2023 10:29-0400 Body weight 76.02 kg [facility] 4 [facility] 02-20-2023 11:48-0500 Body height 165.1 cm Lyndsey Doe MD Work Phone: [facility] 02-20-2023 11:48-0500 Body mass index (BMI) [Ratio] 27.46 kg/m2 Lyndsey Doe MD Work Phone: [facility] 02-20-2023 11:48-0500 Body temperature 98.91 [degF] Lyndsey Doe MD Work Phone: [facility] 02-20-2023 11:48-0500 Body weight 74.84 kg Lyndsey Doe MD Work Phone: [facility] 02-20-2023 11:48-0500 Diastolic blood pressure 72 mm[Hg] Lyndsey Doe MD Work Phone: [facility] 02-20-2023 11:48-0500 Heart rate 104 /min Lyndsey Doe MD Work Phone: [facility] 02-20-2023 11:48-0500 SaO2% (BldA) [Mass fraction] 99 % Lyndsey Doe MD Work Phone: [facility] 02-20-2023 11:48-0500 Systolic blood pressure 114 mm[Hg] Lyndsey Doe MD Work Phone: [facility] 02-06-2023 12:54-0500 Diastolic blood pressure 69 mm[Hg] Pfo 3 [facility] 02-06-2023 12:54-0500 Heart rate 92 /min Pfo 3 [facility] 02-06-2023 12:54-0500 Respiratory rate 18 /min Pfo 3 [facility] 02-06-2023 12:54-0500 SaO2% (BldA) [Mass fraction] 100 % Pfo 3 [facility] 02-06-2023 12:54-0500 Systolic blood pressure 104 mm[Hg] Pfo 3 [facility] 02-06-2023 11:37-0500 Body height 165.1 cm Pfo 3 [facility] 02-06-2023 11:37-0500 Body mass index (BMI) [Ratio] 27.46 kg/m2 Pfo 3 [facility] 02-06-2023 11:37-0500 Body temperature 98.4 [degF] Pfo 3 [facility] 02-06-2023 11:37-0500 Body weight 74.84 kg Pfo 3 [facility] Encounters Encounter Date Encounter Type Care Provider Facility Start: 01-13-2024 End: 01-13-2024 Orders Only Dominique Moya APRN-MANUFACTURING ANALYST Work Phone: [facility] Comment on above: Iron deficiency anem ia due to chronic blood loss (Primary Dx); Iron malabsorption; Iron deficiency anemia, unspecified Start: 01-06-2024 End: 01-06-2024 Orders Only Dominique Moya APRN-MANUFACTURING ANALYST Work Phone: [facility] Comment on above: Iron deficiency anem ia due to chronic blood loss (Primary Dx); Iron malabsorption; Iron deficiency anemia, unspecified Start: 01-03-2024 End: 01-03-2024 Emergency department patient visit HILARY Us TRACI [facility] Start: 12-17-2023 End: 12-18-2023 Telephone encounter Raf Zarco RN [facility] Start: 12-12-2023 End: 12-12-2023 ambulatory [facility] Infusion Chair [address] [facility] Comment on above: Crohn's disease of b oth small and large intestine with intestinal obstruction (CMS-HCC) (Primary Dx) Start: 12-01-2023 End: 12-01-2023 Office outpatient visit 25 minutes Dominique Moya INTERIOR SYSTEMS CARPENTER-MANUFACTURING ANALYST Work Phone: [facility] - [facility] Comment on above: Iron deficiency (Ping hussein Dx); Crohn's disease of both small and large intestine with intestinal obstruction (CMS-HCC); Chronic fatigue; Leg cramps; Noncompliance; Iron deficiency anemia due to chronic blood loss; Iron malabsorption; Iron deficiency anemia, unspecified Start: 12-01-2023 End: 12-01-2023 ambulatory DOMINIQUE MOYA [facility] Start: 12-01-2023 End: 12-01-2023 ambulatory MJ PIZARRO [facility] Start: 10-31-2023 End: 10-31-2023 ambulatory [facility] Start: 09-17-2023 End: 09-17-2023 ambulatory [facility] Start: 09-15-2023 End: 09-15-2023 ambulatory DONNA DON Not Available Start: 09-15-2023 End: 09-15-2023 ambulatory [facility] Start: 09-03-2023 End: 09-03-2023 ambulatory [facility] Start: 08-20-2023 End: 08-20-2023 ambulatory [facility] Start: 08-04-2023 End: 08-04-2023 ambulatory NATALY Leora MONTIEL [facility] Start: 08-04-2023 End: 08-04-2023 ambulatory [facility] Start: 04-21-2023 Telephone encounter Sharda Elliott MD Work Phone: [facility] Start: 04-21-2023 End: 04-21-2023 ambulatory [facility] Infusion Chair 4 [facility] Comment on above: Crohn's disease of b oth small and large intestine with intestinal obstruction (CMS-HCC) (Primary Dx) Start: 04-14-2023 Telephone encounter Nic Loza [facility] Start: 03-31-2023 Telephone encounter Nic Loza [facility] Start: 03-19-2023 End: 03-19-2023 ambulatory LYNDSEY DOE [facility] Start: 02-20-2023 End: 02-20-2023 Office outpatient visit 25 minutes Lyndsey Doe MD Work Phone: [facility] Comment on above: Reactive airway dise ase with acute exacerbation, unspecified asthma severity, unspecified whether persistent (Primary Dx); Shortness of breath; COVID-19; Sinusitis, unspecified chronicity, unspecified location Start: 02-20-2023 End: 02-20-2023 ambulatory LYNDSEY Man NADER [facility] Start: 02-17-2023 End: 02-17-2023 ambulatory [facility] Start: 02-06-2023 End: 02-06-2023 ambulatory [facility] Infusion Chair 3 [facility] Comment on above: Iron deficiency anem ia due to chronic blood loss (Primary Dx); Iron deficiency anemia, unspecified; Iron malabsorption Start: 01-30-2023 End: 01-30-2023 ambulatory MJ PIZARRO [facility] Start: 04-30-2022 End: 04-30-2022 ambulatory SEBASTIAN HERRING Facility: Start: 12-03-2016 End: 12-04-2016 Ambulatory SAMARA HERNANDEZ [facility] [employer] [facility] Start: 11-19-2016 End: 11-26-2016 [facility]: 10-29-2016 End: 10-30-2016 Ambulatory SAMARA HERNANDEZ [facility] Start: 10-01-2016 End: 10-01-2016 Ambulatory SAMARA LOGANRUPA [facility] Start: 08-29-2016 End: 08-29-2016 [facility] Date Procedure Procedure Detail Performing Clinician Start: 12-01-2023 Follow-up visit Follow-up DOMINIQUE MOYA Start: 10-31-2023 Follow-up visit Follow-up SHARDA MONTIEL Start: 09-17-2023 Adult depression scr eening assessment Dominique Moya [employer]PENTER-MANUFACTURING ANALYST Work Phone: Start: 09-17-2023 Microscopic observat ion [Identifier] in Cervix by Cyto stain Dominique Moya [employer] CARPENTER-MANUFACTURING ANALYST Work Phone: Start: 11-23-2020 Adult depression scr eening assessment Pfo 3 Plan of Treatment Date Care Activity Detail Author Start: 09-16-2026 Screening for malign ant neoplasm of cervix Pap Smear [facility] Start: 01-02-2025 Adult BMI Screening Adult BMI Screen ing [facility] Start: 01-02-2025 Tobacco Screening Tobacco Screening [facility] Start: 12-11-2024 Adult BMI Screening Adult BMI Screen ing [facility] Start: 12-02-2024 End: 12-02-2024 Patient encounter procedure 12/02/2024 10:15 AM EDT Office Visit Ally L [facility] - [facility] Oncology [address] [place] [phone] [place] [address] [place] [address] [address] [place] [phone] [facility] - [facility] Oncology Start: 10-30-2024 Adult BMI Screening Adult BMI Screen ing [facility] Start: 10-30-2024 Tobacco Screening Tobacco Screening [facility] Start: 09-16-2024 Depression Screening Depression Scre ening [facility] Start: 04-20-2024 Adult BMI Screening Adult BMI Screen ing [facility] Start: 03-08-2024 End: 03-08-2024 ambulatory 03/08/2024 10:00 AM EST Infusion [facility] [address] [phone] [facility] Start: 02-21-2024 Adult BMI Screening Adult BMI Screen ing [facility] Start: 02-21-2024 Tobacco Screening Tobacco Screening [facility] Start: 01-31-2024 Adult BMI Screening Adult BMI Screen ing [facility] Start: 01-31-2024 Tobacco Screening Tobacco Screening [facility] Start: 01-26-2024 End: 01-26-2024 ambulatory 01/26/2024 10:00 AM EST Infusion [facility] [address] [place] [phone] [facility] Start: 12-22-2023 End: 12-22-2023 Patient encounter procedure 12/22/2023 3:40 PM EST Office Visit [facility] [address] [place] [address], [place] [phone] Hilary Aviles, [employer]PENTER-MANUFACTURING ANALYST [address] [facility] [address], [place] [address] [facility] Start: 12-12-2023 End: 12-12-2023 ambulatory 12/12/2023 10:00 AM EDT Infusion [facility] [address] [place] [phone] [facility] Start: 11-20-2023 End: 11-20-2023 Patient encounter procedure 11/20/2023 1:00 PM EDT Office Visit Ally Kaiden [facility] Oncology [address] [place] [phone] Mj Pizarro MD [address] [place] [address] [address] [place] [phone] Ally L [facility] Start: 10-12-2023 Influenza vaccination Influenza Vacc ine [facility] Start: 06-17-2023 End: 06-17-2023 Patient encounter procedure 06/17/2023 11:15 AM EDT Office Visit [facility] [address] [place] [phone] Meaghan King PA-C [address] [place] [phone] [facility] Start: 06-10-2023 End: 06-10-2023 ambulatory 06/10/2023 10:30 AM EDT Infusion [facility] [address] [facility] [place] [address] [facility] Start: 04-21-2023 End: 04-21-2023 ambulatory 04/21/2023 10:00 AM EDT Infusion [facility] [address] [facility] [place] [address] [facility] Start: 03-31-2023 End: 03-31-2023 ambulatory 03/31/2023 10:00 AM EST Infusion [facility] [address] [facility] [place] [address] [facility] Start: 02-17-2023 End: 02-17-2023 ambulatory 02/17/2023 11:30 AM EST Infusion [facility] [address] [facility] [place] [address] [facility] Start: 10-11-2022 Influenza vaccination Influenza Vacc ine [facility] Start: 11-23-2021 Depression Screening Depression Scre [facility] Start: 2010 Screening for malign ant neoplasm of cervix Pap Smear [facility] Start: 2008 DTaP,Tdap and Td Vaccines (1 - Tdap) DTaP,Tdap and Td Vaccines (1 - Tdap) [facility] Start: 11-11-2007 Adult BMI Follow Up Plan Adult BMI F ollow Up Plan [facility] End: 02-07-2023 Oxygen Therapy - Maintain SpO2: 90% or greater; *LOCAL DRIVER Guidelines for O2: Yes; Document: file://Depositphotos.[employer].or g/epic/EPIC_Reference/Or ders/Respiratory%20Care% 20Guidelines/CPG%20Oxyge n%[email or web address].pdf Oxygen Therapy - Maintain SpO2: 90% or greater; *LOCAL DRIVER Guidelines for O2: Yes; Document: file://[employer]osit[employer].or g/epic/EPIC_Reference/Or ders/Respiratory%20Care% 20Guidelines/CPG%20Oxyge n%[email or web address].pdf Respiratory Care STAT Iron deficiency anemia due to chronic blood loss Iron deficiency anemia, unspecified Iron malabsorption As Needed for 1 Occurrences starting 02/06/2023 until 02/07/2023 [facility] Work Phone: Comment on above: As Needed for 1 Occu rrences starting 02/06/2023 until 02/07/2023 End: 02-21-2024 Pulmonary function test Complete PFT w/ BD (Spirometry (Flow Volume Loop) pre/post short acting bronchodilator w/ DLCO (diffusion study) and Lung Volume) Pulmonary function test Complete PFT w/ BD (Spirometry (Flow Volume Loop) pre/post short acting bronchodilator w/ DLCO (diffusion study) and Lung Volume) PFT Routine Reactive airway disease with acute exacerbation, unspecified asthma severity, unspecified whether persistent 1 Occurrences starting 02/20/2023 until 02/21/2024 [facility] Work Phone: Comment on above: 1 Occurrences starti ng 02/20/2023 until 02/21/2024 Payers Date Payer Category Payer Medicaid ANTH MEDICAID [facility] MEDICAID [id number] 2022-Present [address] [place] [address] [id number] 2022 Medicaid [id number] 2021 Commercial Managed C are - POS [employer] [id number] 2021 Private Health Insurance AETNA AETNA POS II [id number] 2021-Present [phone] [address] [place] [address] [id number] [id number] 1989 Unknown [id number] 2.16.840.1.300670.3.579. 2.593 1989 Unknown [id number] 2.16.840.1.648790.3.579. 2.1259 1989 Unknown [id number] 2.16.840.1.511088.3.579. 2.1286 1989 Unknown [id number] 2.16.840.1.442161.3.579. 2.1286 1989 Unknown [id number] 2.16.840.1.076090.3.579. 2.1286 1989 Unknown [id number] 2.16.840.1.890841.3.579. 2.1286 1989 Unknown [id number] 2.16.840.1.494587.3.579. 2.1286 1989 Unknown [id number] 2.16.840.1.334855.3.579. 2.1286 1989 Unknown [id number] 2.16.840.1.198599.3.579. 2.1286 1989 Unknown [id number] 2.16.840.1.829415.3.579. 2.1286 1989 Unknown [id number] 2.16.840.1.558585.3.579. 2.1286 1989 Unknown [id number] 2.16.840.1.787847.3.579. 2.1286 1989 Unknown [id number] 2.16.840.1.583112.3.579. 2.1286 1989 Unknown [id number] 2.16.840.1.785478.3.579. 2.1286 1989 Unknown [id number] 2.16.840.1.764336.3.579. 2.1286 1989 Unknown [id number] 2.16.840.1.825967.3.579. 2.1286 1989 Unknown [id number] 2.16.840.1.785092.3.579. 2.1286 1989 Unknown [id number] 2.16.840.1.855840.3.579. 2.1286 1989 Unknown [id number] 2.16.840.1.083660.3.579. 2.1286 1989 Unknown [id number] 2.16.840.1.232963.3.579. 2.1286 1959 Private Health Insurance [id number] Social History Date Type Detail Facility Start: 12-27-2021 Tobacco smoking stat [facility] Never smoked tobacco [facility] Start: 12-27-2021 Tobacco use and exposure Smokeless tobacco non-user [facility] Start: 02-06-2023 End: 01-03-2024 Alcohol intake Current non-drinker of alcohol (finding) [facility] Start: 02-29-2020 End: 01-30-2023 History of Social function [facility] Start: 02-29-2020 End: 01-30-2023 Tobacco use panel [facility] Adolescent depressio n screening assessment 11 [facility] Start: 1990 Sex Assigned At Not on file P [facility] Start: 09-13-2014 Sex Female (finding) [facility] Start: 11-19-2023 [facility] Goals Date Patient Goal Desired Activity /State Personal health goal Comment on above: Formatting of this n ote might be different from the original. Evaluation of progress towards goal: patient to discharge to home. Clinical Notes 02-06-2023 to 12-17-2023 Telephone Encounter - Raf Zarco RN - 12/17/2023 10:55 AM ESTTelephone Encounter - Sharda Montiel MD - 12/17/2023 10:55 AM ESTTelephone Encounter - Ariane Jarquin CMA - 12/17/2023 10:55 AM EST Note Date & Type Note Facility 12-17-[address] Montiel, Patient called stating she took a urine test this past Friday and it was positive. She receives Inflectra 400 mg every 6 weeks for her Crohn's. She also takes Imuran 150 mg po daily. Ilesha is inquiring if she can continue taking her Imuran and Inflectra infusions? Please advise, thank you Please let her know that in general multiple studies and research have shown that the increased risk to the from uncontrolled IBD outweighs the risk to the mother and/or fetus of continuing biologic therapy. Uncontrolled IBD can affect outcomes and stabilization of the disease and effective maintenance therapy throughout is important. A very large study that is ongoing called the PIANO study has shown that IBD medication exposure well into the 3rd trimester in patients an increase in any defects, spontaneous abortions, growth restriction, or low weight. It did show a very small increase in infections in babies in the 1st year and as a result we usually recommend continuing medication throughout and trying to time dosing around 32-36 weeks so that the drug level be low around the time of delivery. Furthermore, it is recommended that the baby not be given any live vaccines until they are at least 6-month-old. Breast-feeding on biologics and AZA appears to be safe as well. As such, recommendations are: 1. Complete the labs that were ordered after her last OV to assess for evidence of active disease. - if her disease appears controlled, we could consider stopping AZA and continuing infliximab only if she can ensure compliance and not missing any doses - otherwise, it would be best to cont on AZA at the very least given history of missing IFX doses and non-compliance 2. Plan final dose of IFX around 32-34 weeks and then resume soon after delivery, typically 24hrs after vaginal delivery and 48hrs after a , assuming no infection - have her let us know what her due date is - would need infusion scheduled shortly after her delivery 3. She can plan to breastfeed without concern 4. Around her 3rd trimester, I will send a letter to the family doctor/PCP, Oil Gauger, and web publisher advising against the use of live vaccines for the 1st 6 months of the baby's life and to monitor the baby closely for any signs of infection. Please send her the following as well: [email or web address]/[email or web address]-vryjf-ksbmyt-hope -[email or web address] I recommend an OV w me in 02/2024 or 03/2024 Please disregard notes below. Summary These recommendations are in accordance with the findings of the ongoing PIANO study, The [place] Consensus Statements for the Management of Inflammatory Bowel Disease in , and the clinical care pathway released by the AGA. - Johnathan Farr, Yady BROWN, Lobito CD. Drug Safety and Risk of Adverse Outcomes for Patients With Inflammatory Bowel Disease. Gastroenterology. 2017;152(2):451-462.e2. - Gastroenterology. 2016 Mar;150[3]:734-57 - Johnathan Farr, Rey C, Ama N, et al. Inflammatory bowel disease in clinical care pathway: a report from the [place] gastro[employer]ological association [facility] project working group. Gastroenterology. 2019;156(5):4873-4421. Spoke with patient regarding recommendations, sent via [employer]. Will call patient back when March schedule is out, she needs Mondays. documented in this encounter [facility] 12-17-[address] Montiel, Patient called stating she took a urine test this past Friday and it was positive. She receives Inflectra 400 mg every 6 weeks for her Crohn's. She also takes Imuran 150 mg po daily. Ilesha is inquiring if she can continue taking her Imuran and Inflectra infusions? Please advise, thank you [facility] 12-17-2023 Telephone encounter Note Please let her know that in general multiple studies and research have shown that the increased risk to the from uncontrolled IBD outweighs the risk to the mother and/or fetus of continuing biologic therapy. Uncontrolled IBD can affect outcomes and stabilization of the disease and effective maintenance therapy throughout is important. A very large study that is ongoing called the PIANO study has shown that IBD medication exposure well into the 3rd trimester in patients an increase in any defects, spontaneous abortions, growth restriction, or low weight. It did show a very small increase in infections in babies in the 1st year and as a result we usually recommend continuing medication throughout and trying to time dosing around 32-36 weeks so that the drug level be low around the time of delivery. Furthermore, it is recommended that the baby not be given any live vaccines until they are at least 6-month-old. Breast-feeding on biologics and AZA appears to be safe as well. As such, recommendations are: 1. Complete the labs that were ordered after her last OV to assess for evidence of active disease. - if her disease appears controlled, we could consider stopping AZA and continuing infliximab only if she can ensure compliance and not missing any doses - otherwise, it would be best to cont on AZA at the very least given history of missing IFX doses and non-compliance 2. Plan final dose of IFX around 32-34 weeks and then resume soon after delivery, typically 24hrs after vaginal delivery and 48hrs after a , assuming no infection - have her let us know what her due date is - would need infusion scheduled shortly after her delivery 3. She can plan to breastfeed without concern 4. Around her 3rd trimester, I will send a letter to the family doctor/PCP, Oil Gauger, and web publisher advising against the use of live vaccines for the 1st 6 months of the baby's life and to monitor the baby closely for any signs of infection. Please send her the following as well: [email or web address]/blog/ordwn-wrrpu-hswkdh-hope -[email or web address]-[email or web address]-vm [email or web address]-[email or web address] I recommend an OV w me in 02/2024 or 03/2024 Please disregard notes below. Summary These recommendations are in accordance with the findings of the ongoing PIANO study, The [place] Consensus Statements for the Management of Inflammatory Bowel Disease in , and the clinical care pathway released by the AGA. - Johnathan Farr, Yady BROWN, Lobito CD. Drug Safety and Risk of Adverse Outcomes for Patients With Inflammatory Bowel Disease. Gastroenterology. 2017;152(2):451-462.e2. - Gastroenterology. 2016 Mar;150[3]:734-57 - Johnathan Farr, Rey C, Ama N, et al. Inflammatory bowel disease in clinical care pathway: a report from the [place] gastro[employer]ological association [facility] project working group. Gastroenterology. 2019;156(5):2318-3780. [facility] 12-17-2023 Telephone encounter Note Spoke with patient regarding recommendations, sent via [employer]. Will call patient back when March schedule is out, she needs Mondays. [facility] 12-12-2023 History of Present illness Narrative Infusion start time: 10:50 am Patient here for Inflectra infusion. Patient denies any recent infections or on antibiotics, open wounds, recent/future surgery, vaccinations or insurance changes. 10:30 am IV started with 22g needle to right hand by JAD Arroyo x1 attempt. Patient tolerated well. Inflectra x 4 vials Lot# [id number] Exp- 04/09/2028 Time out performed prior to medication administration. Name, , medication(s) verified 11:50 am patient infusion complete. IV flushed with 10 ml normal saline. IV discontinued, catheter intact, vitals WNL. Patient tolerated infusion well documented in this encounter [facility] 12-01-2023 History of Present illness Narrative Images from the original note were not included. [facility] [address] [place] [phone] 12/01/2023 Chief Complaint Patient presents with Follow-up Subjective/Interval events: Juan Luis Storey is a 33 y.o. year old female who is an established patient seen today in the Hematology/Medical Oncology clinic. Presents accompanied for follow up visit for iron-deficiency. She is intolerant to p.o. ferrous sulfate. Her last IV infusion of Injectafer was 01/2023. Patient tells me that her energy levels are overall low. She states that it could be from her Crohn's disease. That she could sleep all the time. She states she has some discomfort in her chest with deep inspiration however no overt chest pain. She denies shortness of breath, palpitations. She has occasional muscle cramping in her legs. She states that it does not happen often, but it does happen occasionally. She denies restless legs. She denies PICA. No overt bleeding including hematochezia, melena, hematemesis, hematuria. She reports her last infusion of IV Injectafer was tolerated without any adverse effect. Labs that are available were reviewed with patient. She is not anemic, her CBC is slightly improved with a hemoglobin at 12.8 and hematocrit 36.2. RDW is normal. Iron labs are currently pending. History of Present Illness: Oncology History Overview Note Mrs. Storey is a 32 y.o. female with history of Crohn's disease and iron deficiency. She could not tolerate oral iron supplement due to dyspepsia and constipation. Patient's recent hemoglobin was down to 10, iron study in November of 2017 was consistent with iron deficiency. Iron saturation is below 10%. She is referred to Medical Oncology/Hematology for further evaluation. The patient was last seen about 3 years ago. For some reason she lost to follow-up. She came back again with worsening fatigue and craving for ice again. The patient still continue to have Crohn's disease and intermittent diarrhea. She told me she is not taking her medication for Crohn's disease every day. Review of Symptoms as below unless otherwise stated in HPI Review of symptoms is covered in subjective/interval events. All other systems are negative unless stated above. ECO- Symptomatic; fully ambulatory Physical exam: Vitals: BP 111/76 Pulse 71 Temp 37.1 C (98.8 F) (Oral) Resp 16 Ht 165.1 cm (5' 5 ) Wt 76 kg (167 lb 9.6 oz) SpO2 99% BMI 27.89 kg/m Body mass index is 27.89 kg/m . Wt Readings from Last 3 Encounters: 12/01/23 76 kg (167 lb 9.6 oz) 10/31/23 75.8 kg (167 lb 1.7 oz) 10/31/23 75.8 kg (167 lb) Physical Exam Constitutional: Appearance: Normal appearance. She is normal weight. Cardiovascular: Rate and Rhythm: Normal rate and regular rhythm. Pulses: Normal pulses. Heart sounds: Normal heart sounds. Pulmonary: Effort: Pulmonary effort is normal. Breath sounds: Normal breath sounds. Abdominal: General: Abdomen is flat. Bowel sounds are normal. Palpations: Abdomen is soft. Musculoskeletal: General: Normal range of motion. Cervical back: Normal range of motion and neck supple. Skin: General: Skin is warm and dry. Capillary Refill: Capillary refill takes less than 2 seconds. Neurological: General: No focal deficit present. Mental Status: She is alert and oriented to person, place, and time. Mental status is at baseline. Psychiatric: Mood and Affect: Mood normal. Behavior: Behavior normal. Thought Content: Thought content normal. Judgment: Judgment normal. Recent labs: Recent Results (from the past week) Ferritin Collection Time: 12/01/23 9:51 AM Result Value Ref Range Ferritin 12 11 - 307 ng/mL Iron and TIBC Collection Time: 12/01/23 9:51 AM Result Value Ref Range Iron 74 50 - 170 ug/dL Tibc-calc only do not order 344 250 - 425 ug/dL Iron Saturation 21 15 - 50 % SATURATION CBC auto differential Collection Time: 12/01/23 9:51 AM Result Value Ref Range White Blood Cells 4.8 4.0 - 11.0 X10E9/L RBC count 3.87 3.80 - 5.20 X10E12/L Hemoglobin 12.8 11.7 - 15.5 g/dL Hematocrit 36.2 35 - 47 % MCV 94 80 - 100 fL MCH 33.2 27 - 34 pg MCHC 35.5 32 - 36 g/dL RDW 13.3 11.5 - 15.0 % Platelets 187 150 - 450 X10E9/L MPV 11.1 7 - 12 fL % neutrophils 40.7 % % lymphocytes 47.4 % % monocytes 9.1 % % eosinophils 2.3 % % Basophils 0.5 % Neutrophils Absolute (A) 1.9 1.5 - 6.6 X10E9/L Lymphocytes Absolute 2.3 1.0 - 3.5 X10E9/L Monocytes Absolute 0.4 0 - 0.9 X10E9/L Eosinophils Absolute 0.1 0.0 - 0.4 X10E9/L Basophils Absolute 0.0 0.0 - 0.2 X10E9/L Problem list: Problem List Items Addressed This Visit Digestive Crohn's disease of both small and large intestine with intestinal obstruction ([facility]) Other Visit Diagnoses Iron deficiency - Primary Chronic fatigue Leg cramps Noncompliance Impression: #. Iron-deficiency anemia due to chronic blood loss from Crohn's disease #. Intolerant to oral ferrous sulfate 07/2018 - Injectafer 01/2023 - Injectafer x2 11/2023: HGB 12.8, HCT 36.2, RDW 13.3, iron 74, ferritin 12, iron sat 21, TIBC 344 Due to patient's symptoms of severe fatigue, we will order IV iron in the form of Injectafer, with borderline ferritin #. History of Crohn's disease #. Noncompliance Lost to follow up frequently with our service Plan: Current hemoglobin is 12.8, no longer anemic IV ferritin level is borderline at 12, with patient's significant fatigue we will order IV Injectafer Labs in 3 months, CBC-d, iron panel, ferritin Follow up in 1 year with labs prior, CBC-d, iron panel, ferritin Thank you for allowing me to participate in this patient's care. DOMINIQUE MOYA APRN-LUIGI 12/01/2023 2:56 PM Total time spent was 30 minutes: Preparing to see the patient (e.g., review of tests) Obtaining and/or reviewing separately obtained history Performing a medically appropriate examination and/or evaluation Counseling and educating the patient/family/caregiver Ordering medications, tests, or procedures Referring and communicating with other health career development consultant (not separately reported) Documenting clinical information in the electronic or other health record Independently interpreting results (not separately reported) and communicating results to the patient/family/caregiver Care coordination (not separately reported) --- Please note that portions of this note may have been generated using voice recognition [employer] dictation software. Although every effort was made to ensure the accuracy of any automated transcriptions, some errors may have occurred. TERA Leyva 12/01/23 1502 documented in this encounter [facility] TERA Leyva - 12/01/2023 2:30 PM EDT Pending labs If iron is low, will order Injectafer IV If iron is low, will repeat labs in 3 months CBC-d iron panel ferritin If iron is normal, just follow up yearly as below Follow up yearly with labs same as above [facility] Miscellaneous Notes Due for OV There is nothing available for a recheck OV , can we use a new patient slot? Yes that's ok Left message for patient to call and schedule. Message left for patient to call back. Patient is scheduled with Meaghan on June 16 at 11:15 am. Infusion is scheduled on June 09 at 10:30 am documented in this encounter [facility] 04-21-2023 Telephone encounter Note Due for OV [facility] 04-21-2023 Telephone encounter Note There is nothing available for a recheck OV , can we use a new patient slot? [facility] 04-21-2023 Telephone encounter Note Yes that's ok [facility] 04-21-2023 Telephone encounter Note Left message for patient to call and schedule. [facility] 04-21-2023 Telephone encounter Note Message left for patient to call back. [facility] 04-21-2023 Telephone encounter Note Patient is scheduled with Meaghan on June 16 at 11:15 am. Infusion is scheduled on June 09 at 10:30 am [facility] 04-21-2023 History of Present illness Narrative 1020 am Patient here for Inflectra infusion. Patient denies any recent infections, open wounds, recent/future surgery, or insurance changes . IV started with 22g needle to right hand by raf correa x 1 attempt. Patient tolerated well. Inflectra x 4 vials Lot #[id number] Exp date 12/11/2027 Time out performed with Raf Delatorre RN. 400 mg of Inflectra to be mixed and administered to patient per current treatment plan orders. 1305 patient infusion complete. IV discontinued, catheter intact, vitals WNL. Patient tolerated infusion well documented in this encounter [facility] 04-14-2023 Miscellaneous Notes Patient missed the visit. RN called patient and RN rescheduled patient for 04/21/2023. documented in this encounter [facility] 04-14-2023 Telephone encounter Note Patient missed the visit. RN called patient and RN rescheduled patient for 04/21/2023. [facility] 03-31-2023 Miscellaneous Notes RN was told that patient is calling regarding her insurance. The phone call was then transferred back to the infusion room. Patient states she lost her secondary insurance and wanted to know to what the amount she will be responsible for. RN informed patient to call her insurance company to find out that information. documented in this encounter [facility] 03-31-2023 Telephone encounter Note RN was told that patient is calling regarding her insurance. The phone call was then transferred back to the infusion room. Patient states she lost her secondary insurance and wanted to know to what the amount she will be responsible for. RN informed patient to call her insurance company to find out that information. [facility] 02-20-2023 History of Present illness Narrative Images from the original note were not included. [address] [place] [id number] Patient: Juan Luis Storey Date of : 1990 Encounter Date: 02/20/2023 SUBJECTIVE: Chief Complaint: Chief Complaint Patient presents with Asthma Patient ID: Juan Luis Storey is a 32 y.o. female. URI symptoms Sore throat since Friday Sinus congestion No cough Watery nasal drainage No known sick contacts, but has 3 children Non smoker No OTC tx Concern for asthma PMH of The following portions of the patient's history were reviewed and updated as appropriate: allergies, current medications, past family history, past medical history, past social history, past surgical history and problem list. PHYSICAL EXAMINATION: Vitals: 02/20/23 1148 BP: 114/72 Pulse: 104 Temp: 37.2 C (98.9 F) SpO2: 99% Weight: 74.8 kg (165 lb) Height: 165.1 cm (5' 5 ) Physical Exam Vitals reviewed. Constitutional: General: She is not in acute distress. Appearance: Normal appearance. Eyes: Extraocular Movements: Extraocular movements intact. Pupils: Pupils are equal, round, and reactive to light. Cardiovascular: Rate and Rhythm: Normal rate and regular rhythm. Pulses: Normal pulses. Heart sounds: Normal heart sounds. Pulmonary: Effort: Pulmonary effort is normal. No respiratory distress. Breath sounds: Normal breath sounds. No wheezing or rhonchi. Abdominal: General: Bowel sounds are normal. There is no distension. Palpations: Abdomen is soft. There is no mass. Tenderness: There is no abdominal tenderness. There is no right CVA tenderness, left CVA tenderness or guarding. Musculoskeletal: Cervical back: Normal range of motion and neck supple. Neurological: Mental Status: She is alert and oriented to person, place, and time. Mental status is at baseline. ASSESSMENT/PLAN: Juan Luis was seen today for asthma. Diagnoses and all orders for this visit: Reactive airway disease with acute exacerbation, unspecified asthma severity, unspecified whether persistent - Pulmonary function test Complete PFT w/ BD (Spirometry (Flow Volume Loop) pre/post short acting bronchodilator w/ DLCO (diffusion study) and Lung Volume); Future - albuterol (PROVENTIL,VENTOLIN) nebulizer solution 2.5 mg - guaiFENesin (MUCINEX) 600 mg tablet extended release 12hr; Take 1 tablet (600 mg total) by mouth every 12 (twelve) hours for 7 days. - albuterol (PROVENTIL HFA;VENTOLIN HFA) 90 mcg/actuation inhaler; Inhale 2 puffs every 6 (six) hours as needed for wheezing or shortness of breath. Shortness of breath - albuterol (PROVENTIL HFA;VENTOLIN HFA) 90 mcg/actuation inhaler; Inhale 2 puffs every 6 (six) hours as needed for wheezing or shortness of breath. COVID-19 - albuterol (PROVENTIL HFA;VENTOLIN HFA) 90 mcg/actuation inhaler; Inhale 2 puffs every 6 (six) hours as needed for wheezing or shortness of breath. Sinusitis, unspecified chronicity, unspecified location - guaiFENesin (MUCINEX) 600 mg tablet extended release 12hr; Take 1 tablet (600 mg total) by mouth every 12 (twelve) hours for 7 days. Other orders - vitamin B-12 1000 MCG tablet; Take 2 tablets (2,000 mcg total) by mouth in the morning. - folic acid (FOLVITE) 1 mg tablet; Take 1 tablet (1 mg total) by mouth in the morning. LYNDSEY DOE MD Family Medicine Physician [facility] / [facility] 02/20/23 This note was completed with voice recognition software. The document was reviewed for errors however some may still be present. Please do not hesitate to contact/[facility] the author to verify any questions/concerns. documented in this encounter [facility] 02-06-2023 History of Present illness Narrative Patient is here for injectafer. She has had it before, denies issues or side effects. IV started, flushes well with brisk blood return, injectafer infused over 15 minutes. Patient observed for 30 minutes, tolerated infusion well without issues. IV flushed, saline locked, wrapped in coban. Patient given calendar, verbalized understanding of future appointments. Patient discharged in stable condition. documented in this encounter [facility] Evaluation note Diagnosis 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 deficiency anemia, unspecified Iron malabsorption Other specified intestinal malabsorption [facility] Diagnosis Reactive airway disease with acute exacerbation, unspecified asthma severity, unspecified whether persistent- Primary Shortness of breath COVID-19 Sinusitis, unspecified chronicity, unspecified location documented in this encounter [facility]* Diagnosis Crohn's disease of both small and large intestine with intestinal obstruction (CMS-HCC)- Primary documented [facility]* Diagnosis Iron deficiency- Primary Disorders of iron metabolism Crohn's disease of both small and large intestine with intestinal obstruction (CMS-HCC) Chronic fatigue Other malaise and fatigue Leg cramps Cramp of limb Noncompliance Iron deficiency anemia due to chronic blood loss 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 Other specified intestinal malabsorption Iron deficiency anemia, unspecified documented [facility] Diagnosis Crohn's disease of both small and large intestine with intestinal obstruction (CMS-HCC)- Primary documented [facility] encounter [facility]* Diagnosis 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 Other specified intestinal malabsorption Iron deficiency anemia, unspecified documented [facility] encounter [facility]ructionsNot on filedocumented in this encounter [facility] on filedocumented in this encounter [facility]ructionsNot on filedocumented in this encounter [facility]ructionsNot on filedocumented in this encounter [facility] filedocumented in this encounter [facility] filedocumented in this encounter [facility]Not on filedocumented in this encounter [facility] Summary Purpose Family History No Family History Records FoundNo Family History Records FoundNo Family History Records FoundNo Family History Records FoundNo Family History Records FoundNo Family History Records Found Advance Directives Latest Code Status on File Code Status Date Activated Date Inactivated Comments Full Code 07/03/2019 3:39 PM 07/03/2019 7:07 PM Code Status History Code Status Date Activated Date Inactivated Comments Full Code 04/02/2018 11:45 AM 04/10/2018 4:06 PM Full Code 10/17/2017 8:36 PM 10/22/2017 7:23 PM Date Activated Date Inactivated Comments 07/03/2019 3:39 PM 07/03/2019 7:07 PM Date Activated Date Inactivated Comments 04/02/2018 11:45 AM 04/10/2018 4:06 PM Date Activated Date Inactivated Comments 10/17/2017 8:36 PM 10/22/2017 7:23 PM Additional Source Comments INFORMATION SOURCE (unrecogn ized section and content) DATE CREATED AUTHOR 08/05/2017 [facility] DATE CREATED AUTHOR AUTHOR'S ORGANIZ ATION 06/26/2022 [facility] DATE CREATED AUTHOR AUTHOR'S ORGANIZ ATION 09/17/2023 [facility] DATE CREATED AUTHOR AUTHOR'S ORGANIZ ATION 09/19/[address] [facility] DATE CREATED AUTHOR AUTHOR'S ORGANIZ ATION 12/14/2023 [facility] DATE CREATED AUTHOR AUTHOR'S ORGANIZ ATION 01/06/2024 [facility] Reason for Visit (unrecogniz ed section and content) Reason Comments Outpatient Infusion Injectafer Specialty Diagnoses / Procedures Referred By Carroll t Referred To Contact Diagnoses Iron deficiency anemia due to chronic blood loss Iron deficiency anemia, unspecified Iron malabsorption Procedures UT INJ FERRIC CARBOXYMALTOS 1MG Mj Pizarro MD [address] [place] [id number] [facility] [address] [place] [phone] Referral ID Status Reason Start Date Expiration Date V isits Requested Visits Authorized [id number] Authorized 01/24/2023 07/23/2023 2 2 Reason Comments Asthma Reason Comments Outpatient Infusion Inflectra Specialty Diagnoses / Procedures Referred By Contac t Referred To Contact Gastroenterology Diagnoses Crohn's disease of both small and large intestine with intestinal obstruction Procedures UT INFLIXIMAB INJECTION Referral ID Status Reason Start Date Expiration Date V isits Requested Visits Authorized [id number] Authorized 04/01/2023 04/01/2024 9 9 Reason Comments Follow-up Specialty Diagnoses / Procedures Referred By Contac t Referred To Contact Gastroenterology Diagnoses Crohn's disease of both small and large intestine with intestinal obstruction Procedures UT INFLIXIMAB INJECTION Care Teams (unrecognized sec tion and content) Debt And Budget Counselor Relationship Specialty Start Date End Date Hilary Aviles APRN-[facility] [address], [place] [address] PCP - General Family Medicine 12/26/22 Debt And Budget Counselor Relationship Specialty Start Date End Date [facility] [address], [place] [address] PCP - General Family Medicine 12/26/22 Debt And Budget Counselor Relationship Specialty Start Date End Date Hilary [facility]iles [facility] [address], [place] [address] PCP - General Family Medicine 12/26/22 Debt And Budget Counselor Relationship Specialty Start Date End Date Hilary Aviles [facility] [address], [place] [address] PCP - General Family Medicine 12/26/22 Debt And Budget Counselor Relationship Specialty Start Date End Date Hilary Aviles [facility] [address], [place] [address] PCP - General Family [facility] 12/26/22 Debt And Budget Counselor Relationship Specialty Start Date End Date Hilary Aviles [facility] [address], [place] [address] PCP - [facility] 12/26/22 Debt And Budget Counselor Relationship Specialty Start Date End Date Hilary Aviles [facility] [address], [place] [address] PCP - [facility] 12/26/22 Debt And Budget Counselor Relationship Specialty Start Date End Date Hilary Aviles [facility] [address], [place] [facility] [address] PCP - [facility] 12/26/22 Debt And Budget Counselor Relationship Specialty Start Date End Date Hilary Aviles [facility] [address], [place] [facility] [place] [address] PCP - General [facility] 01/03/24 Debt And Budget Counselor Relationship Specialty Start Date End Date Hilary Aviles [facility] [address], [place] [address] PCP - General Family [facility] 01/03/24 FOR RECORDS PERTAINING TO PATIENTS WHO ARE OR HAVE BEEN ENROLLED IN A CHEMICAL DEPENDENCY/SUBSTANCEABUSE PROGRAM, SOME INFORMATION MAY BE OMITTED. This clinical summary was aggregated from multiple sources. Caution should be exercised in using it in the provision of clinical care. This summary normalizes information from multiple sources, and as a consequence, information in this document may materially change the coding, format and clinical context of patient data. In addition, data may be omitted in some cases. CLINICAL DECISIONS SHOULD BE BASED ON THE PRIMARY CLINICAL RECORDS. [facility]. provides no warranty or guarantee of the accuracy or completeness of information in this document.
== END 2024-01-23 09:40 | disposition home or self-care (01) ==
LOC: NOMS 09:39
PROVIDERS: PCP Nurse Practitioner; Visit Provider Obstetrics & Gynecology
DX: N92.6 Irregular menstruation, unspecified (principal); Z34.91 Encounter for supervision of normal pregnancy, unspecified, first trimester; Z3A.11 11 weeks gestation of pregnancy
CPT/HCPCS: 76817

== ENCOUNTER 2024-02-14 10:12 | Outpatient (OUT) | payer OTHER, SELFPAY ==
[2024-02-14 11:03] LABS: Basophils Percent Auto 0.2 % (0.2-2.0); Eosinophils Absolute Auto 0.1 10^3/uL (0.0-0.7); Eosinophils Percent Auto 0.9 % (0.9-7.0); Hematocrit 35.3 % (36.0-48.0); Hemoglobin 11.8 g/dL (12.0-16.0); Immature Granulocytes Abs Auto 0.03 10^3/uL (0.00-0.03); Immature Granulocytes Pct Auto 0.4 % (0.0-0.5); Lymphocytes Absolute Auto 2.4 10^3/uL (1.2-3.8); Lymphocytes Percent Auto 29.2 % (20.5-60.0); Mean Corpuscular HGB Conc 33.4 g/dL (29.9-35.2); Mean Corpuscular Volume 95.7 fL (81.0-99.0); Monocytes Absolute Auto 0.5 10^3/uL (0.3-0.8); Monocytes Percent Auto 6.5 % (1.7-12.0); Neutrophils Absolute Auto 5.1 10^3/uL (1.4-6.5); Neutrophils Percent Auto 62.8 % (43.0-75.0); Platelet Count 194 10^3/uL (150-450); Red Blood Count 3.69 10^6/uL (4.20-5.40); Red Cell Distribution Width 12.5 % (11.0-15.0); White Blood Count 8.2 10^3/uL (4.0-11.0)
[2024-02-14 11:10] LABS: Amphetamine Screen Urine NEGATIVE (NEGATIVE); Barbiturates Screen Urine NEGATIVE (NEGATIVE); Benzodiazepines Screen Urine NEGATIVE (NEGATIVE); Buprenorphine Screen Urine NEGATIVE (NEGATIVE); Cannabinoid Screen Urine NEGATIVE (NEGATIVE); Cocaine Screen Urine NEGATIVE (NEGATIVE); Methadone Screen Urine NEGATIVE (NEGATIVE); Methamphetamines Screen Urine NEGATIVE (NEGATIVE); Opiate Screen Urine NEGATIVE (NEGATIVE); Oxycodone Screen Urine NEGATIVE (NEGATIVE); Phencyclidine Screen Urine NEGATIVE (NEGATIVE); Tricyclic Antidepressant Urine NEGATIVE (NEGATIVE)
[2024-02-14 11:52] LABS: Estimated Average Glucose 94 mg/dL; Glycohemoglobin A1C 4.9 % (4.5-6.2)
[2024-02-15 08:07] LABS: HBsAg Screen Negative (Negative); HCV Ab Non Reactive (Non Reactive); HIV Ab/p24 Ag Screen Non Reactive (Non Reactive)
[2024-02-15 09:08] LABS: Rapid Plasma Reagin, Quant Non Reactive titer (NonRea<1:1); Rubella Antibodies, IgG 6.88 index (Immune >0.99)
[2024-02-17 08:19] LABS: BOX Test Reference Lab FIRELANDS
== END 2024-02-14 10:13 | disposition home or self-care (01) ==
LOC: LAB 10:13
PROVIDERS: PCP Nurse Practitioner; Visit Provider Obstetrics & Gynecology
DX: Z34.01 Encounter for supervision of normal first pregnancy, first trimester (principal); N92.6 Irregular menstruation, unspecified
CPT/HCPCS: 36415; 80307; 83036; 85025; 86592; 86762; 86803; 86850; 86900; 86901; 87086; 87340; 87389

== ENCOUNTER 2024-03-11 10:08 | Outpatient (OUT) | payer OTHER, SELFPAY ==
--- NOTE | 2024-03-11 10:11 | US_ITS ---
[address] [address] Patient Name: BINTA TANNER MRN: [id number] date: 1990 Sex: F Assigned Patient Location: US Current Patient Location: Accession/Order Number: [id number] Exam Date: 03/11/2024 10:15 Report Date: 03/11/2024 10:53 At the request of: CHAPINCITO DOMINGO Procedure: US OB cervical length EXAMINATION: US OB cervical length HISTORY: History Prior With Short Cervix COMPARISON: Ultrasound OB transvaginal 01/23/2024 TECHNIQUE: Transabdominal and transvaginal sonographic examination for cervical length. FINDINGS: CERVIX LENGTH: 4.6 cm; closed. POSITION: Breech HEART RATE: 153 bpm Age by EDC: 18 weeks 1 day ALEJANDRA by EDC: 08/11/2024 US/US OB cervical length IMPRESSION: 1. Single live intrauterine . 2. Closed cervix 4.6 cm in length. Electronically authenticated by: LUIS VALERA Date: 03/11/2024 10:53
--- OUTSIDE RECORDS SUMMARY | 2024-03-11 10:28 | XMS_ITS | CCD ---
Author Organization [facility] Care Team Providers Care Knife Grinder Name Role Phone ADAMOWICZ, SAMARA J Unavailable Unavailable ADAMOWICZ, SAMARA J Unavailable Unavailable ADAMOWICZ, SAMARA J Unavailable Unavailable ADAMOWICZ, SAMARA J Unavailable Unavailable ADAMOWICZ, SAMARA J Unavailable Unavailable ADAMOWICZ, SAMARA J Unavailable Unavailable ADAMOWICZ, SAMARA J Unavailable Unavailable ADAMOWICZ, SAMARA J Unavailable Unavailable SEBASTIAN HERRING Attending Unavailable SEBASTIAN HERRING Consulting Unavailable SEBASTIAN HERRING Admitting Unavailable MIS, DR VELAZCO Primary Care Unavailable Traci WOOLEN SU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-PLUMBER HELPER, Hilary A Primary Care Provi lazarus HILARY AVILES Attending Unavailable TRACI, HILARY A Referring Unavailable TRACI, HILARY A Primary Care Unavailable TRACI, HILARY A Attending Unavailable TRACI, HILARY A Referring Unavailable TRACI, HILARY A Primary Care Unavailable TRACI, HILARY A Attending Unavailable TRACI HILARY A Referring Unavailable TRACI, HILARY A Primary Care Unavailable LYNDSEY ANDERS Attending Unavailable TRACI, HILARY A Referring Unavailable TRACI, HILARY A Primary Care Unavailable Traci WOOLEN SU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-PLUMBER HELPER, Hilary A Primary Care Provi lazarus Hilary Aviles MD Unavailable [phone] MJ PIZARRO Referring Unavailable TRACI, HILARY A Primary Care Unavailable MJ PIZARRO Referring Unavailable TRACI, HILARY A Primary Care Unavailable LYNDSEY ANDERS Attending Unavailable LYNDSEY ANDERS Referring Unavailable TRACI, HILARY A Primary Care Unavailable DOMINIQUE MOYA Attending Unavailable TRACI, HILARY A Referring Unavailable TRACI, HILARY A Primary Care Unavailable TRACI, HILARY A Primary Care Unavailable RAULITO SIDDIQUI Attending Unavailab le TRACI, HILARY A Primary Care Unavailable DEE, SESAR Attending Unavailable YAQUELIN HORNE Attending Unavailable PARISH VALDEZ Attending Unavailable TRACI, HILARY A Referring Unavailable TRACI, HILARY A Primary Care Unavailable TRACI, HILARY A Referring Unavailable TRACI, HILARY A Primary Care Unavailable TRACI, HILARY A Referring Unavailable TRACI, HILARY A Primary Care Unavailable TRACI, HILARY A Referring Unavailable TRACI, HILARY A Primary Care Unavailable TRACI, HILARY A Referring Unavailable TRACI, HILARY A Primary Care Unavailable SHARDA MONTIEL Attending Unavailable TRACI, HILARY A Referring Unavailable TRACI, HILARY A Primary Care Unavailable TRACI, HILARY A Referring Unavailable TRACI, HILARY A Primary Care Unavailable SHARDA MONTIEL Referring Unavailable TRACI, HILARY A Primary Care Unavailable TRACI, HILARY A Referring Unavailable TRACI, HILARY A Primary Care Unavailable TRACI, HILARY A Referring Unavailable TRACI, HILARY A Primary Care Unavailable Allergies Allergy Classification Reported Allergen(s) Allergy Type Date of Onset Reaction(s) Facility (20 sources) Sertraline; Translations: [SERTRALINE] Drug Allergy 11-09-2018 [facility] Medications Current Medications Medication Drug Class(es) Dates Sig (Normalized) Sig (Original) [id number] 200 actuat albuterol 0.09 mg/actuat metered dose [...] 05/08/2022 Active azaTHIOprine 50 mg oral tablet (19 sources) Purine Antimetabolite Start: 09-07-2021 take 3 tablets by mouth in the morning azaTHIOprine (IMURAN) 50 mg tablet Take 3 tablets (150 mg total) by mouth in the morning. 270 tablet 1 10/31/2023 Active benzonatate 100 mg oral capsule (6 sources) Non-narcotic Antitussive Start: 11-26-2021 take 1 capsule by mouth every eight hours benzonatate (TESSALON PERLES) 100 mg capsule Take 1 capsule (100 mg total) by mouth every 8 (eight) hours. 21 capsule 0 11/26/2021 Active cholecalciferol 1.25 mg oral capsule (15 sources) Vitamin D Start: 01-27-2024 take 1 capsule by mouth every week cholecalciferol (VITAMIN D3) 50,000 units capsule Take 1 capsule (50,000 Units total) by mouth once a week. 8 capsule 01/27/2024 Active Start: 01-26-2024 take 1 capsule by mo uth in the morning cholecalciferol (VITAMIN D3) 50,000 units capsule Take 1 capsule (50,000 Units total) by mouth in the morning. 8 capsule 01/26/2024 Active Start: 10-01-2021 take 1 tablet by anat th in the morning cholecalciferol, vitamin D3, 5,000 units tablet Take 1 tablet (5,000 Units total) by mouth in the morning. 90 each 3 10/01/2021 Active cholecalciferol (Vitamin D-3) 25 MCG (1000 UT) capsule 1,000 Units. Active citalopram 20 mg oral tablet (8 sources) Serotonin Reuptake Inhibitor Start: 09-17-2023 take 1.5 tablets by mouth in the morning citalopram (CeleXA) 20 mg tablet Indications: Current moderate episode of major depressive disorder without prior episode ([facility]) Take 1.5 tablets (30 mg total) by mouth in the morning. 30 tablet 2 09/17/2023 Active 1 ml EPINEPHrine 1 mg/ml injection (1 source) alpha-Adrenergic Agonist, beta-Adrenergic Agonist, Catecholamine Start: 02-06-2023 End: 02-07-2023 EPINEPHrine (ADRENALIN) 1 mg/mL injection FOR ANAPHYLAXIS 0.3 mg folic acid 1 mg oral tablet (20 sources) Start: 10-31-2023 take 1 tablet by mouth in the morning folic acid (FOLVITE) 1 mg tablet Take 1 tablet (1 mg total) by mouth in the morning. 90 tablet 2 10/31/2023 Active Start: 08-02-2021 End: 02-20-2023 take 1 tablet by mouth in the morning folic acid (Folvite) 1 MG tablet Take 1,000 mcg by mouth in the morning. 05/07/2022 Active folic acid 0.4 mg / vitamin b12 1 mg sublingual tablet (8 sources) Vitamin B12 Cobalamin Combin ations (B-12) 100-5000 MCG sublingual tablet B12 Active cyanocobalamin/f olic acid (vitamin B22-yxgzv acid) 1,000-400 mcg lozenge B12 0 Active 12 hr guaiFENesin 600 mg extended release oral tablet (1 source) Start: 02-20-2023 End: 02-27-2023 take 1 tablet by mouth once guaiFENesin (MUCINEX) 600 mg tablet extended release 12hr Indications: Reactive airway disease with acute exacerbation, unspecified asthma severity, unspecified whether persistent , Sinusitis, unspecified chronicity, unspecified location Take 1 tablet (600 mg total) by mouth every 12 (twelve) hours for 7 days. 14 tablet 0 02/20/2023 02/27/2023 Active inFLIXimab 100 mg injection (20 sources) Tumor Necrosis Factor Muriel inFLIXimab (REMICADE) 10 mg/mL injection Infuse 5 mg/kg into a venous catheter See Admin Instructions. Every 6 weeks Active inFLIXimab-dyyb (INFLECTRA) 100 mg injection Indications: Crohn's disease Infuse 5 mg/kg into a venous catheter once Indications: Crohn's disease. Every 6 weeks Active inFLIXimab-axxq (AVSOLA) 100 mg injection Infuse 5 mg/kg into a venous catheter every 6 (six) weeks. Active inFLIXimab-dyyb (Inflectra) 100 MG injection Infuse 5 mg/kg into a venous catheter Active magnesium oxide 400 mg oral tablet (5 sources) Start: 01-23-2024 End: 02-22-2024 take 1 tablet by mouth once daily magnesium oxide (Mag-Ox) 400 MG tablet Indications: headache in first trimester Take 1 tablet (400 mg) by mouth Daily 30 tablet 6 01/23/2024 02/22/2024 Active methylPREDNISolone 125 mg injection (1 source) Corticosteroid Start: 02-06-2023 End: 02-07-2023 methylPREDNISolone sod suc(PF) (Solu-MEDROL) injection 125 mg ondansetron 4 mg disintegrating oral tablet (6 sources) Serotonin-3 Receptor Antagonist Start: 12-29-2023 End: 01-28-2024 take 1 tablet by mouth every six hours as needed for nausea and vomiting and nausea and nausea ondansetron ODT (Zofran-ODT) 4 MG disintegrating tablet Indications: Nausea Take 1 tablet (4 mg) by mouth every 6 (six) hours if needed for nausea or vomiting 30 tablet 3 12/29/2023 01/28/2024 Active take 1 tablet by anat th every eight hours as needed for nausea and vomiting ondansetron (ZOFRAN) 4 mg tablet Take 1 tablet (4 mg total) by mouth every 8 (eight) hours as needed for nausea or vomiting. Active vit no.124/iron/folic ( VITAMIN ORAL) (2 sources) take 1 tablet by mouth in the morning vit no.124/iron/folic ( VITAMIN ORAL) Take 1 tablet by mouth in the morning. Active vitamin b12 1 mg oral tablet (7 sources) Vitamin B12 Start: 05-29-19 21 End: 02-20-19 24 take 2 tablets by mouth in the morning vitamin B-12 1000 MCG tablet Take 2 tablets (2,000 mcg total) by mouth in the morning. 90 tablet 2 02/20/2023 Active WESTAB PLUS 27 mg iron- 1 mg tablet (6 sources) Start: 06-08-19 23 WESTAB PLUS 27 mg iron- 1 mg tablet Completed/Discontinued Medications Medication Drug Class(es) Dates Sig (Normalized) Sig (Original) ferric carboxymaltose (INJECTAFER) 750 mg in sodium chloride 0.9 % 100 mL IVPB (1 source) Start: 02-06-2023 End: 02-06-2023 ferric carboxymaltose (INJECTAFER) 750 mg in sodium chloride 0.9 % 100 mL IVPB inFLIXimab-axxq (AVSOLA) 5 mg/kg = 400 mg in sodium chloride 0.9 % 250 mL IVPB (1 source) Start: 03-08-2024 End: 03-08-2024 400 mg (rounded from 403.5 mg = 5 mg/kg 80.7 kg), intravenous, Once, On Fri03/08/24 at 1100, For 1 dose, Infuse over at least 2 hours: For [...] Administer using 0.2 - 1.2 micron filter. inFLIXimab-dyyb (INFLECTRA) 400 mg in sodium chloride [...] 1000 ml sodium chloride 9 mg/ml injection (4 sources) Start: 03-08-2024 End: 03-08-2024 take 25 mL intravenously every hour as needed 25 mL/hr, intravenous, Continuous PRN, When mainline IV needed., Starting on Fri03/08/24 at 1018, Match IVF to base solution of product being administered to ensure compatibility. Start: 04-21-2023 End: 04-21-2023 sodium chloride 0.9 % infusi on Start: 02-06-2023 End: 02-07-2023 sodium chloride 0.9 % bolus Problems Active Problems Problem Classification Problem Date Documented Da te Episodic/Chronic Anxiety disorders (17 sources) Anxiety; Translations: [Anxiety disorder, unspecified] Onset: 12-14-2018 12-14-2018 Chronic Asthma (4 sources) Reactive airway disease; Translations: [Unspecified asthma with (acute) exacerbation] Onset: 02-20-2023 02-20-2023 Chronic Deficiency and other anemia (18 sources) Iron deficiency anemia due to blood loss; Translations: [Iron deficiency anemia secondary to blood loss (chronic)] Onset: 07-17-2018 02-06-2023 Chronic Deficiency and other anemia (2 sources) Iron deficiency anemia secondary to blood loss (chronic); Translations: [Iron deficiency anemia secondary to blood loss (chronic)] Onset: 07-17-2018 Chronic E Codes: Fall (1 source) Fall (on) (from) unspecified stairs and steps, initial encounter; Translations: [Fall (on) (from) unspecified stairs and steps, initial encounter] Onset: 01-31-2024 Episodic E Codes: Fall (1 source) Fall Onset: 01-31-2024 Immunizations and screening for infectious disease (1 source) Encounter for screening for human papillomavirus (HPV); Translations: [ENC SCREENING HUMAN PAPILLOMAVIRUS] Onset: 05-04-2022 Episodic Malaise and fatigue (1 source) Fatigue; Translations: [Chronic fatigue, unspecified] 12-01-2023 Chronic Menstrual disorders (1 source) Missed period; Translations: [Irregular menstruation, unspecified] 01-23-2024 Chronic Mood disorders (20 sources) Reactive depression (situational); Translations: [Major depressive disorder, single episode, unspecified] Onset: 11-09-2018 11-09-2018 Chronic Other aftercare (1 source) Patient encounter status; Translations: [Encounter for therapeutic drug level monitoring] 02-03-2024 Episodic Other aftercare (1 source) Encounter for therapeutic drug level monitoring; Translations: [Encounter for therapeutic drug level monitoring] Onset: 01-26-2024 Episodic Other complications of (1 source) Headache; Translations: [Other specified related conditions, first trimester] 01-23-2024 Episodic Other complications of (2 sources) H/O: ; Translations: [Supervision of with other poor reproductive or obstetric history, unspecified trimester] 02-18-2024 Episodic Other connective tissue disease (1 source) Cramp in lower limb; Translations: [Cramp and spasm] 12-01-2023 Episodic Other gastrointestinal disorders (18 sources) Malabsorption - iron; Translations: [Intestinal malabsorption, unspecified] Onset: 08-28-2020 02-06-2023 Chronic Other gastrointestinal disorders (1 source) Intestinal malabsorption, unspecified; Translations: [Intestinal malabsorption, unspecified] Onset: 08-28-2020 Chronic Other gastrointestinal disorders (1 source) Constipation, unspecified; Translations: [Constipation, unspecified] Onset: 01-03-2024 Episodic Other gastrointestinal disorders (1 source) Constipation Onset: 01-03-2024 Episodic Other inflammatory condition of skin (14 sources) Scalp psoriasis; 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, unspecified] Onset: 12-14-2018 12-14-2018 Chronic Other and delivery including normal (4 sources) ; Translations: [Encounter for supervision of normal , unspecified, unspecified trimester] 01-23-2024 Episodic Other screening for suspected conditions (not mental disorders or infectious disease) (4 sources) Encounter for screening for malignant neoplasm of cervix; Translations: [ENC SCREENING MALIG NEOPLASM CERV] Onset: 04-30-2022 Episodic Other upper respiratory infections (2 sources) Sinusitis; Translations: [Chronic sinusitis, unspecified] Onset: 02-20-2023 02-20-2023 Chronic Regional enteritis and ulcerative colitis (20 sources) Crohn's disease of small AND large intestines; Translations: [Crohn's disease of both small and large intestine with intestinal obstruction] Onset: 03-03-2018 03-03-2018 Chronic Residual codes; unclassified (1 source) Noncompliance with treatment; Translations: [Noncompliance] 12-01-2023 Episodic Residual codes; unclassified (1 source) 12 weeks gestation of ; Translations: [12 weeks gestation of ] Onset: 01-31-2024 Episodic Residual codes; unclassified (2 sources) Gestation period, 15 weeks; Translations: [15 weeks gestation of ] 02-18-2024 Episodic Unclassified (1 source) FMLA Onset: 09-03-2023 Unclassified (1 source) Constipation, Early Onset: 01-03-2024 Unclassified (2 sources) Outpatient Infusion Onset: 02-06-2023 Viral infection (1 source) COVID-19; Translations: [COVID-19] Onset: 01-22-2021 Past or Other Problems Problem Classification Problem Date Documented Da te Episodic/Chronic Deficiency and other anemia (18 sources) Iron deficiency anemia; Translations: [Iron deficiency anemia, unspecified] Onset: 08-28-2020 02-06-2023 Episodic Deficiency and other anemia (14 sources) Microcytic anemia; Translations: [Iron deficiency anemia, unspecified] Onset: 07-17-2018 07-17-2018 Episodic Deficiency and other anemia (14 sources) Anemia; Translations: [Anemia, unspecified] Onset: 07-02-2019 07-02-2019 Episodic Deficiency and other anemia (2 sources) Iron deficiency anemia, unspecified; Translations: [Iron deficiency anemia, unspecified] Onset: 08-28-2020 Episodic Intestinal obstruction without hernia (20 sources) Intestinal obstruction; Translations: [Unspecified intestinal obstruction, unspecified as to partial versus complete obstruction] Onset: 10-17-2017 Resolved: 08-29-2020 08-29-2020 Episodic Mood disorders (14 sources) Mood disorders Onset: 11-23-2020 Resolved: 09-17-2023 11-23-2020 Nutritional deficiencies (15 sources) Cobalamin deficiency; Translations: [Deficiency of other specified B group vitamins] Onset: 07-08-2019 07-08-2019 Episodic Other bone disease and musculoskeletal deformities (14 sources) Bone cyst of foot; Translations: [Other cyst of bone, unspecified ankle and foot] Onset: 11-11-2022 11-11-2022 Episodic Other complications of (14 sources) Anemia; Translations: [Anemia complicating , unspecified trimester] Onset: 05-15-2017 Resolved: 04-21-2018 04-21-2018 Chronic Other complications of (14 sources) History of fourth degree perineal laceration; Translations: [Supervision of with other poor reproductive or obstetric history, unspecified trimester] Onset: 06-21-2017 Resolved: 08-29-2020 08-29-2020 Episodic Other complications of (14 sources) History of gynecological disorder; Translations: [Supervision of with other poor reproductive or obstetric history, unspecified trimester] Onset: 06-21-2017 Resolved: 08-29-2020 08-29-2020 Episodic Other connective tissue disease (14 sources) Pain in both feet; Translations: [Pain in right foot] Onset: 12-14-2018 12-14-2018 Episodic Other connective tissue disease (14 sources) Chronic pain of right foot; Translations: [Pain in right foot] Onset: 09-18-2022 09-18-2022 Episodic Other disorders of stomach and duodenum (14 sources) Internal duodenal fistula; 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] Onset: 06-04-2018 Resolved: 05-08-2022 05-08-2022 Episodic Other gastrointestinal disorders (14 sources) Diarrhea; Translations: [Diarrhea, unspecified] Onset: 10-17-2017 Resolved: 05-08-2022 05-08-2022 Episodic Other lower respiratory disease (14 sources) Cough; Translations: [Cough] Onset: 12-20-2019 Resolved: 09-27-2020 09-27-2020 Episodic Other lower respiratory disease (15 sources) Dyspnea; Translations: [Shortness of breath] Onset: 01-22-2021 Resolved: 05-08-2022 05-08-2022 Episodic Other lower respiratory disease (1 source) Shortness of breath; Translations: [Shortness of breath] Onset: 02-20-2023 Episodic Other non-traumatic joint disorders (14 sources) Pain in left knee; Translations: [Pain in joint, lower leg] Onset: 12-23-2018 12-23-2018 Episodic Other upper respiratory disease (14 sources) Congestion of nasal sinus; Translations: [Nasal congestion] Onset: 12-21-2020 12-21-2020 Episodic Other upper respiratory infections (14 sources) Sore throat symptom; Translations: [Acute pharyngitis, unspecified] Onset: 12-20-2019 Resolved: 05-08-2022 05-08-2022 Episodic Residual codes; unclassified (14 sources) Difficulty sleeping ; Translations: [Sleep disorder, unspecified] Onset: 01-13-2019 01-13-2019 Episodic Viral infection (15 sources) Disease caused by 2019-nCoV; Translations: [COVID-19] Onset: 01-22-2021 01-22-2021 Episodic Results Test Name Value Interpretation Reference Range Facility Urinalysis macro (dipstick) panel (U)on 02-18-2024 Bilirubin, UA Negative Negative - 4(70) +++ mg/dL [facility] Blood, UA Positive Negative - 50 Enrrique/mcL [facility] Comment on above: trace Clarity, UA Clear [facility] Color, UA Yellow [facility] Glucose, UA Negative Negative - 2000(110) ++++ mg/dL [facility] Interpretation and review of laboratory results Abnormal [facility] Ketones, UA Positive Negative - 160(16) ++++ mg/dL [facility] Comment on above: trace Leukocytes, UA Trace Negative - 500+++ Cam/mcL [facility] Nitrite, UA Negative Negative - Positive [facility] pH, UA 7 5 - 9 [facility] Protein, UA Positive Negative - 2000(20) ++++ mg/dL [facility] Comment on above: 30 Spec Grav, UA 1.03 1 - 1.03 [facility] Urobilinogen, UA 1.0 0.2 - 12 mg/dL [facility] ALL CBC WITH AUTO DIFFon BASOPHILS ABSOLUTE AUTO 0 [facility] Basophils/100 WBC (Bld) 0.2 % 0.2 - 2.0 % [facility] Eosinophils/100 WBC (Bld) 0.9 % 0.9 - 7.0 % [facility] Erythrocyte distribution width (RBC) [Ratio] 12.5 % 11.0 - 15.0 % [facility] Hematocrit (Bld) [Volume fraction] 35.3 % Low 36.0 - 48.0 % [facility] Hemoglobin (Bld) [Mass/Vol] 11.8 g/dL Low 12.0 - 16.0 g/dL [facility] IMMATURE GRANULOCYTES ABS AUTO 0.03 [facility] Immature granulocytes/100 WBC (Bld) 0.4 % 0.0 - 0.5 % [facility] Interpretation and review of laboratory results Abnormal [facility] LYMPHOCYTES ABSOLUTE AUTO 2.4 [facility] Lymphocytes/100 WBC (Bld) 29.2 % 20.5 - 60.0 % [facility] MCH (RBC) [Entitic mass] 32 pg 26.7 - 34.0 pg [facility] MCHC (RBC) [Mass/Vol] 33.4 g/dL 29.9 - 35.2 g/dL [facility] MCV (RBC) [Entitic vol] 95.7 fL 81.0 - 99.0 fL [facility] MONOCYTES ABSOLUTE AUTO 0.5 [facility] Monocytes/100 WBC (Bld) 6.5 % 1.7 - 12.0 % [facility] NEUTROPHILS ABSOLUTE AUTO 5.1 [facility] Neutrophils/100 WBC (Bld) 62.8 % 43.0 - 75.0 % [facility] Platelet mean volume (Bld) [Entitic vol] 12 fL 9.5 - 13.5 fL [facility] TBH EO # 0.1 [facility] TBH PLT 194 [facility] TB RBC 3.69 Low [facility] TB WBC 8.2 [facility] BASIC METABOLIC PANLon 01-25 Anion gap [Moles/Vol] 9 mmol/L Normal 5-15 [facility] Comment on above: Performed By: #### C ILEANA CARLOS, 1988-06, LIVR, 2131-10, 91611-3, 41788-4 #### [facility] ([id number]) [address] [place] [address], [address] [place] [address] #### THMET #### [facility] ([id number]) [address] [place] [address], Calcium [Mass/Vol] 8.6 mg/dL Normal 8.5-10.5 [facility] Comment on above: Performed By: #### C ILEANA CARLOS, 1988-06, LIVR, 2131-10, 20687-3, 75527-7 #### [facility] ([id number]) [address] [place] [address], [address] [place] [address] #### THMET #### [facility] ([id number]) [address] [place] [address], Chloride [Moles/Vol] 104 mmol/L Normal 98-109 [facility] Comment on above: Performed By: #### C BC, BMP, 1988-06, LIVR, 2131-10, 55860-2, 07713-7 #### [facility] ([id number]) [address] [place] [address] #### THMET #### [facility] ([id number]) [address] [place] [address], CO2 [Moles/Vol] 21 mmol/L Low 22-32 [facility] Comment on above: Performed By: #### C BC, BMP, 1988-06, LIVR, 2131-10, 53855-2, 71672-0 #### [facility] ([id number]) [address] [place] [address] #### THMET #### [facility] ([id number]) [address] [place] [address], Creatinine [Mass/Vol] 0.56 mg/dL Normal 0.40-1.00 [facility] Comment on above: Result Comment: METH OD TRACEABLE TO IDMS STANDARD Performed By: #### C BC, BMP, 1988-06, LIVR, 2131-10, 66119-4, 24507-1 #### [facility] ([id number]) [address] [place] [address], [address] [place] [address] #### THMET #### [facility] ([id number]) [address] [place] [address], eGFR (CKD-EPI) NON-RACE DEPENDENT >90 Normal >59 [facility] Comment on above: Result Comment: Reported eGFR is based on the CKD-EPI 2020 equation that does not use a race coefficient. Performed By: #### C ILEANA CARLOS, 1988-06, LIVR, 2131-10, 62648-0, 76539-6 #### [facility] ([id number]) [address], [address] [place] [address] #### THMET #### [facility] ([id number]) [address] [facility], Glucose [Mass/Vol] 73 mg/dL Normal 65-99 [facility] Comment on above: Performed By: #### C ILEANA CARLOS, 1988-06, LIVR, 2131-10, 40634-6, 39808-0 #### [facility] ([id number]) [address] [facility] [place] [address] #### THMET #### [facility] ([id number]) [address] [place] [address], Potassium [Moles/Vol] 3.8 mmol/L Normal 3.5-5.0 [facility] Comment on above: Performed By: #### ILEANA PITTMAN, 1988-06, LIVR, 2131-10, 99499-0, 95717-8 #### [facility] ([id number]) [address] [facility], [address] [place] [address] #### THMET #### [facility] ([id number]) [address] [place] [address], Sodium [Moles/Vol] 134 mmol/L Normal 134-146 [facility] Comment on above: Performed By: #### ILEANA PITTMAN, 1988-06, LIVR, 2131-10, 34077-6, 23307-7 #### [facility] ([id number]) [address] [facility], [address] [place] [address] #### THMET #### [facility] ([id number]) [address] [facility], Urea nitrogen [Mass/Vol] 6 mg/dL Normal 5-23 [facility] Comment on above: Performed By: #### C BREANNA, ILEANA, 1988-06, LIVR, 2131-10, 68125-3, 23720-6 #### [facility] ([id number]) [address] [place] [address], [facility] [address] [place] [address] #### THMET #### [facility] ([id number]) [address] [place] [address], COMPLETE BLOOD COUNTon 01-25 Erythrocyte distribution width (RBC) [Ratio] 13.7 % Normal 11.5-15.0 [facility] Comment on above: Performed By: #### C ILEANA CARLOS, 1988-06, LIVR, 2131-10, 66197-4, 21698-4 #### [facility] ([id number]) [address] [place] [address], [facility] [address] [place] [address] #### THMET #### [facility] ([id number]) [address] [place] [address], Hematocrit (Bld) [Volume fraction] 38.5 % Normal 35-47 [facility] Comment on above: Performed By: #### C BREANNA, BMP, 1988-06, LIVR, 2131-10, 22036-7, 36518-5 #### [facility] ([id number]) [address] [place] [address], [facility] [address] [place] [address] #### THMET #### [facility] ([id number]) [address] [place] [address], Hemoglobin (Bld) [Mass/Vol] 12.8 g/dL Normal 11.7-15.5 [facility] Comment on above: Performed By: #### C BREANNA, BMP, 1988-06, LIVR, 2131-10, 68844-5, 23965-5 #### [facility] ([id number]) [facility] [place] [address], [address] [place] [address] #### THMET #### [facility] ([id number]) [address] [facility], MCH (RBC) [Entitic mass] 32.5 pg Normal 27-34 [facility] Comment on above: Performed By: #### C ILEANA CARLOS, 1988-06, LIVR, 2131-10, 64526-2, 45403-8 #### [facility] ([id number]) [address] [place] [address], [address] [place] [address] #### THMET #### [facility] ([id number]) [address] [place] [address], MCHC (RBC) [Mass/Vol] 33.3 g/dL Normal 32-36 [facility] Comment on above: Performed By: #### C ILEANA CARLOS, 1988-06, LIVR, 2131-10, 48699-4, 13535-5 #### [facility] ([id number]) [address] [place] [address], [address] [place] [address] #### THMET #### [facility] ([id number]) [address] [place] [address], MCV (RBC) [Entitic vol] 98 fL Normal 80-100 [facility] Comment on above: Performed By: #### C ILEANA CARLOS, 1988-06, LIVR, 2131-10, 48703-3, 21320-2 #### [facility] ([id number]) [address] [place] [address], [address] [place] [address] #### THMET #### [facility] ([id number]) [address] [place] [address], Platelet mean volume (Bld) [Entitic vol] 11.2 fL Normal 7-12 [facility] Comment on above: Performed By: #### C ILEANA CARLOS, 1988-06, LIVR, 2131-10, 36170-8, 10333-2 #### [facility] ([id number]) [address] [place] [address], [address] [place] [address] #### THMET #### [facility] ([id number]) [address] [place] [address], Platelets (Bld) [#/Vol] 108 10*3/uL Low 150-450 [facility] Comment on above: Performed By: #### C BC, BMP, 1988-06, LIVR, 2131-10, 79367-5, 81868-0 #### [facility] ([id number]) [address] [place] [address], [place] [address] #### THMET #### [facility] ([id number]) [address] [place] [address], RBC COUNT 3.95 X10E12/L Normal 3.80-5.20 [facility] Comment on above: Performed By: #### C BC, BMP, 1988-06, LIVR, 2131-10, 78082-1, 85835-1 #### [facility] ([id number]) [address] [place] [address], [place] [address] #### THMET #### [facility] ([id number]) [address] [place] [address], WBC (Bld) [#/Vol] 7.2 10*3/uL Normal 4.0-11.0 [facility] Comment on above: Performed By: #### C BC, BMP, 1988-06, LIVR, 2131-10, 65080-4, 52333-9 #### [facility] ([id number]) [address] [place] [address], [address] [address] #### THMET #### [facility] ([id number]) [address] [place] [address], CRP [Mass/Vol]on 01-26-2024 C REACTIVE PROTEIN 0.7 mg/dL Normal 0.000-0.744 [facility] Comment on above: Performed By: #### C BREANNA, BMP, 1988-06, LIVR, 2131-10, 22871-1, 99941-5 #### [facility] ([id number]) [address], [address] [place] [address] #### THMET #### [facility] ([id number]) [facility], ESR Photometric method (Bld) [Velocity]on 01-26-2024 ESR, ERYTHROCYTE SEDIMENTATION RATE 1 mm/h Normal 0-20 [facility] Comment on above: Performed By: #### C BREANNA, BMP, 1988-06, LIVR, 2131-10, 59553-4, 70229-5 #### [facility] ([id number]) [address], [address] [place] [address] #### THMET #### [facility] ([id number]) [address] [place] [address], LIVER PANELon 01-26-2024 Albumin [Mass/Vol] 3.7 g/dL Normal 3.2-5.3 [facility] Comment on above: Performed By: #### C BREANNA, BMP, 1988-06, LIVR, 2131-10, 45241-4, 66847-7 #### [facility] ([id number]) [address], [address] [place] [address] #### THMET #### [facility] ([id number]) [facility], ALP [Catalytic activity/Vol] 29 U/L Low 39-130 [facility] Comment on above: Performed By: #### C BC, BMP, 1988-06, LIVR, 2131-10, 42967-7, 30864-1 #### [facility] ([id number]) [address], [address] [place] [address] #### THMET #### [facility] ([id number]) [address] [facility], ALT [Catalytic activity/Vol] 8 U/L Normal 0-31 [facility] Comment on above: Performed By: #### C BC, BMP, 1988-06, LIVR, 2131-10, 92734-2, 60785-8 #### [facility] ([id number]) [address] [place] [address], [address] [address] #### THMET #### [facility] ([id number]) [address] [place] [address], AST [Catalytic activity/Vol] 19 U/L Normal 0-41 [facility] Comment on above: Performed By: #### C BC, BMP, 1988-06, LIVR, 2131-10, 04805-7, 98245-1 #### [facility] ([id number]) [address] [place] [address] #### THMET #### [facility] ([id number]) [address] [place] [address], Bilirubin [Mass/Vol] 0.4 mg/dL Normal 0.3-1.2 [facility] Comment on above: Performed By: #### C BC, BMP, 1988-06, LIVR, 2131-10, 36336-2, 48117-9 #### [facility] ([id number]) [address] [place] [address], [address] [address] #### THMET #### [facility] ([id number]) [address] [place] [address], Bilirubin.direct [Mass/Vol] 0.1 mg/dL Normal 0.0-0.4 [facility] Comment on above: Performed By: #### C BC, BMP, 1988-06, LIVR, 2131-10, 89611-5, 85604-2 #### [facility] ([id number]) [address] [facility], [address] [place] [address] #### THMET #### [facility] ([id number]) [address] [facility], Protein [Mass/Vol] 7.0 g/dL Normal 6.0-8.0 [facility] Comment on above: Performed By: #### C BC, BMP, 1988-06, LIVR, 2131-10, 62725-5, 10768-5 #### [facility] ([id number]) [address] [facility], [address] [place] [address] #### THMET #### [facility] ([id number]) [address] [place] [address], THIOPURINE METABOLITESon 6 THIOGUANINE Not performed Normal [facility] Comment on above: Result Comment: NOTE Thiopurine Metabolites, B was cancelled on 02/02/2024 at 16:27; Quantity not sufficient to test. Test Performed by: [facility] [address] [place] [address] Messenger Office: Celi Fernandez Ph.D.; CLIA# [id number] Performed By: #### C BCA, FEPR, 2276-4 #### [facility] ([id number]) [address] [facility], [address] [place] [address] VITAMIN B12on 01-26-2024 Cobalamin (Vitamin B12) [Mass/Vol] 239 pg/mL Normal 180-914 [facility] Comment on above: Performed By: #### C BC, BMP, 1988-06, LIVR, 2131-10, 01883-4, 52546-2 #### [facility] ([id number]) [address] [place] [address], [address] [place] [address] #### THMET #### [facility] ([id number]) [address] [facility], Vitamin D+Metabolites [Mass/ Vol]on 01-26-2024 VITAMIN D 25 HYD TOT 10.1 ng/mL Low 30-100 [facility] Comment on above: Result Comment: Vitamin D status 25 [place] Vitamin D Deficiency <20 ng/mL Insufficiency 20-29 ng/mL Sufficiency 30-100 ng/mL Toxicity >100 ng/mL NOTE: A pediatric reference range has not been established by the faculty criminal justice of this kit. The [place] [employer] recommends a Vitamin D level of = or >20ng/mL in infants and children. Performed By: #### C BCA, FEPR, 2276-4 #### [facility] ([id number]) [address] [place] [address], [address] [place] [address] HCG ( test) Ql (U)o n 01-23-2024 Interpretation and review of laboratory results Abnormal [facility] Preg Test, Ur Positive Negative [facility] Urinalysis macro (dipstick) panel (U)on 01-23-2024 Bilirubin, UA Negative Negative - 4(70) +++ mg/dL [facility] Blood, UA Positive Negative - 50 Enrrique/mcL [facility] Clarity, UA Clear [facility] Color, UA Yellow [facility] Glucose, UA Negative Negative - 2000(110) ++++ mg/dL [facility] Interpretation and review of laboratory results Abnormal [facility] Ketones, UA Positive Negative - 160(16) ++++ mg/dL [facility] Leukocytes, UA Negative Negative - 500+++ Cam/mcL [facility] Nitrite, UA Negative Negative - Positive [facility] pH, UA 7 5 - 9 [facility] Protein, UA Trace Negative - 2000(20) ++++ mg/dL [facility] Spec Grav, UA 1.015 1 - 1.03 [facility] Urobilinogen, UA 1.0 0.2 - 12 mg/dL [facility] KAY FECAL OCCULT BLDon 01-02 Hemoglobin.gastroi ntestinal Ql (Stl) Negative Normal NEG [facility] Comment on above: Performed By: #### 2 335-8 #### [facility] ([id number]) [address] [place] [address], [place] [address] CBC AND AUTO DIFFon 11-30- 24 ABSOLUTE BASOPHIL 0.0 X10E9/L Normal 0.0-0.2 [facility] Comment on above: Performed By: #### Elizabeth ARROYO FEPR, 6-4 #### [facility] ([id number]) [address], [facility] [address] [place] [address] ABSOLUTE NEUTROPHIL 1.9 X10E9/L Normal 1.5-6.6 [facility] Comment on above: Performed By: #### Elizabeth ARROYO, FEPR, 2275-4 #### [facility] ([id number]) [address], [facility] [address] [place] [address] Basophils/100 WBC (Bld) 0.5 % Normal [facility] Comment on above: Performed By: #### Elizabeth ARROYO, FEPR, 2275-4 #### [facility] ([id number]) [address], [facility] [address] [place] [address] Eosinophils (Bld) [#/Vol] 0.1 10*3/uL Normal 0.0-0.4 [facility] Comment on above: Performed By: #### Elizabeth ARROYO, FEPR, 2275-4 #### [facility] ([id number]) [address], [facility] [address] [place] [address] Eosinophils/100 WBC (Bld) 2.3 % Normal [facility] Comment on above: Performed By: #### Elizabeth ARROYO, FEPR, 2275- #### [facility] ([id number]) [address], [address] [place] [address] Erythrocyte distribution width (RBC) [Ratio] 13.3 % Normal 11.5-15.0 [facility] Comment on above: Performed By: #### Elizabeth ARROYO, FEPR, 2275-4 #### [facility] ([id number]) [address], [address] [place] [address] Hematocrit (Bld) [Volume fraction] 36.2 % Normal 35-47 [facility] Comment on above: Performed By: #### Elizabeth ARROYO, FEPR, 2275- #### [facility] ([id number]) [address], [address] [place] [address] Hemoglobin (Bld) [Mass/Vol] 12.8 g/dL Normal 11.7-15.5 [facility] Comment on above: Performed By: #### Elizabeth ARROYO, FEPR, 2275-4 #### [facility] ([id number]) [address], [address] [place] [address] Lymphocytes (Bld) [#/Vol] 2.3 10*3/uL Normal 1.0-3.5 [facility] Comment on above: Performed By: #### Elizabeth ARROYO, FEPR, 2275-4 #### [facility] ([id number]) [address], [address] [place] [address] Lymphocytes/100 WBC (Bld) 47.4 % Normal [facility] Comment on above: Performed By: #### Elizabeth BCA, FEPR, 4 #### [facility] ([id number]) [address], [address] [place] [address] MCH (RBC) [Entitic mass] 33.2 pg Normal 27-34 [facility] Comment on above: Performed By: #### Elizabeth BCA, FEPR, 2275-4 #### [facility] ([id number]) [address], [address] [place] [address] MCHC (RBC) [Mass/Vol] 35.5 g/dL Normal 32-36 [facility] Comment on above: Performed By: #### Elizabeth BCA, FEPR, 2275-4 #### [facility] ([id number]) [address], [address] [place] [address] MCV (RBC) [Entitic vol] 94 fL Normal 80-100 [facility] Comment on above: Performed By: #### Elizabeth ARROYO, FEPR, 2275-05 #### [facility] ([id number]) [address], [address] [place] [address] Monocytes (Bld) [#/Vol] 0.4 10*3/uL Normal 0-0.9 [facility] Comment on above: Performed By: #### Elizabeth ARROYO, FEPR, 2275- #### [facility] ([id number]) [address], [facility] [address] [place] [address] Monocytes/100 WBC (Bld) 9.1 % Normal [facility] Comment on above: Performed By: #### Elizabeth ARROYO, FEPR, 2275-05 #### [facility] ([id number]) [address], [facility] [address] [place] [address] Neutrophils/100 WBC (Bld) 40.7 % Normal [facility] Comment on above: Performed By: #### Elizabeth ARROYO, FEPR, 2275-05 #### [facility] ([id number]) [address], [address] [place] [address] Platelet mean volume (Bld) [Entitic vol] 11.1 fL Normal 7-12 [facility] Comment on above: Performed By: #### Elizabeth ARROYO, FEPR, 2275-05 #### [facility] ([id number]) [address] [address] [place] [address] Platelets (Bld) [#/Vol] 187 10*3/uL Normal 150-450 [facility] Comment on above: Performed By: #### Elizabeth BCA, FEPR, 2275-05 #### [facility] ([id number]) [address], [address] [place] [address] RBC COUNT 3.87 X10E12/L Normal 3.80-5.20 [facility] Comment on above: Performed By: #### C BCA, FEPR, 6-4 #### [facility] ([id number]) [address], [address] [place] [address] WBC (Bld) [#/Vol] 4.8 10*3/uL Normal 4.0-11.0 [facility] Comment on above: Performed By: #### C BCA, FEPR, 6-4 #### [facility] ([id number]) [address], [address] [place] [address] FERRITINon 12-01-2023 Ferritin [Mass/Vol] 12 ng/mL Normal 11-307 [facility] Comment on above: Performed By: #### C BCA, FEPR, 6-4 #### [facility] ([id number]) [address], [address] [place] [address] IRON PROFILEon 12-01-2023 Iron [Mass/Vol] 74 ug/dL Normal 50-170 [facility] Comment on above: Performed By: #### C BCA, FEPR, 6-4 #### [facility] ([id number]) [address], [address] [place] [address] IRON BINDING 344 ug/dL Normal 250-425 [facility] Comment on above: Performed By: #### C BCA, FEPR, 6-4 #### [facility] ([id number]) [address], [address] [place] [address] IRON SATURATION 21 % SATURATION Normal 15-50 [facility] Comment on above: Performed By: #### C BCA, FEPR, 6-4 #### [facility] ([id number]) [address], [address] [place] [address] CBC AND AUTO DIFFon 08-03- 24 ABSOLUTE BASOPHIL 0.0 X10E9/L Normal 0.0-0.2 [facility] Comment on above: Performed By: #### C BCA, FEPR, 2275-05 #### [facility] ([id number]) [address], [address] [place] [address] ABSOLUTE NEUTROPHIL 2.7 X10E9/L Normal 1.5-6.6 [facility] Comment on above: Performed By: #### C BCA, FEPR, 2275-4 #### [facility] ([id number]) [address], [address] [place] [address] Basophils/100 WBC (Bld) 0.4 % Normal [facility] Comment on above: Performed By: #### C BCA, FEPR, 2275-05 #### [facility] ([id number]) [address], [address] [place] [address] Eosinophils (Bld) [#/Vol] 0.1 10*3/uL Normal 0.0-0.4 [facility] Comment on above: Performed By: #### C BCA, FEPR, 2275-05 #### [facility] ([id number]) [address], [address] [place] [address] Eosinophils/100 WBC (Bld) 2.0 % Normal [facility] Comment on above: Performed By: #### C BCA, FEPR, 2275-05 #### [facility] ([id number]) [address], [address] [place] [address] Erythrocyte distribution width (RBC) [Ratio] 13.5 % Normal 11.5-15.0 [facility] Comment on above: Performed By: #### C BCA, FEPR, 2275-05 #### [facility] ([id number]) [address], [address] [place] [address] Hematocrit (Bld) [Volume fraction] 35.2 % Normal 35-47 [facility] Comment on above: Performed By: #### C BCA, FEPR, 2275-05 #### [facility] ([id number]) [address], [address] [place] [address] Hemoglobin (Bld) [Mass/Vol] 12.2 g/dL Normal 11.7-15.5 [facility] Comment on above: Performed By: #### C CRUZ, FEPR, 2275-05 #### [facility] ([id number]) [address], [facility] [address] [place] [address] Lymphocytes (Bld) [#/Vol] 1.9 10*3/uL Normal 1.0-3.5 [facility] Comment on above: Performed By: #### Elizabeth ARROYO, FEPR, 2275-05 #### [facility] ([id number]) [address], [facility] [address] [place] [address] Lymphocytes/100 WBC (Bld) 36.8 % Normal [facility] Comment on above: Performed By: #### Elizabeth BCA, FEPR, 2275-05 #### [facility] ([id number]) [address], [facility] [address] [place] [address] MCH (RBC) [Entitic mass] 31.9 pg Normal 27-34 [facility] Comment on above: Performed By: #### Elizabeth ARROYO, FEPR, 2275-05 #### [facility] ([id number]) [address], [address] [place] [address] MCHC (RBC) [Mass/Vol] 34.5 g/dL Normal 32-36 [facility] Comment on above: Performed By: #### Elizabeth BCA, FEPR, 2275- #### [facility] ([id number]) [address], [facility] [address] [place] [address] MCV (RBC) [Entitic vol] 93 fL Normal 80-100 [facility] Comment on above: Performed By: #### Elizabeth BCA, FEPR, 2275-05 #### [facility] ([id number]) [address], [address] [place] [address] Monocytes (Bld) [#/Vol] 0.4 10*3/uL Normal 0-0.9 [facility] Comment on above: Performed By: #### C BCA, FEPR, 2275-4 #### [facility] ([id number]) [address], [address] [place] [address] Monocytes/100 WBC (Bld) 8.3 % Normal [facility] Comment on above: Performed By: #### Elizabeth BCA, FEPR, 2275- #### [facility] ([id number]) [address], [address] [place] [address] Neutrophils/100 WBC (Bld) 52.5 % Normal [facility] Comment on above: Performed By: #### Elizabeth BCA, FEPR, 2275-4 #### [facility] ([id number]) [address], [address] [place] [address] Platelet mean volume (Bld) [Entitic vol] 10.7 fL Normal 7-12 [facility] Comment on above: Performed By: #### Elizabeth BCA, FEPR, 2275-05 #### [facility] ([id number]) [address], [address] [place] [address] Platelets (Bld) [#/Vol] 198 10*3/uL Normal 150-450 [facility] [facility] Comment on above: Performed By: #### Elizabeth BCA, FEPR, 2275-4 #### [facility] ([id number]) [address], [address] [place] [address] RBC COUNT 3.81 X10E12/L Normal 3.80-5.20 [facility] Comment on above: Performed By: #### Elizabeth BCA, FEPR, 2275-4 #### [facility] ([id number]) [address], [address] [place] [address] WBC (Bld) [#/Vol] 5.2 10*3/uL Normal 4.0-11.0 [facility] Comment on above: Performed By: #### C BCA, FEPR, 2275-4 #### [facility] ([id number]) [address], [address] [place] [address] FERRITINon 08-04-2023 Ferritin [Mass/Vol] 27 ng/mL Normal 11-307 [facility] Comment on above: Performed By: #### C BCA, FEPR, 2275-4 #### [facility] ([id number]) [address], [address] [place] [address] IRON PROFILEon 08-04-2023 Iron [Mass/Vol] 46 ug/dL Low 50-170 [facility] Comment on above: Performed By: #### Elizabeth BCA, FEPR, 2275-4 #### [facility] ([id number]) [address], [address] [place] [address] IRON BINDING 273 ug/dL Normal 250-425 [facility] Comment on above: Performed By: #### C BCA, FEPR, 2275-4 #### [facility] ([id number]) [address], [address] [place] [address] IRON SATURATION 17 % SATURATION Normal 15-50 [facility] Comment on above: Performed By: #### Elizabeth BCA, FEPR, 2275-4 #### [facility] ([id number]) [address], [address] [place] [address] M. tuberculosis stim IFN-g p carrillo (Bld)on 08-04-2023 Mitogen minus Nil Result 9.92 IU/mL Normal [facility] Comment on above: Performed By: #### 7 1775-1 #### [facility] ([id number]) [address] [place] [address], Nil Result 0.08 IU/mL Normal [facility] Comment on above: Result Comment: NOTE Test Performed by: [facility] [address] [place] [address] Messenger Office: Celi Fernandez Ph.D.; CLIA# [id number] Performed By: #### 7 1775-1 #### [facility] ([id number]) [address] [place] [address], QuantiFERON-Tb Gold Plus Result Negative Normal Negative [facility] Comment on above: Result Comment: NOTE [...] IU/mL. Performed By: #### 7 1775-1 #### [facility] [place] ([id number]) [address] [place] [address], TB1 Ag minus Nil Result 0.09 IU/mL Normal [facility] Comment on above: Performed By: #### 7 1775-1 #### [facility] ([id number]) [address] [place] [address], TB2 Ag minus Nil Result 0.01 IU/mL [facility] Comment on above: Performed By: #### 7 1775-1 #### [facility] ([id number]) [address] [place] [address], PAP ACOG PANEL 2: 30 to 65on 05-07-2022 . . Normal [facility] Comment on above: Result Comment: Perf ormed at: WB Performed By: #### 4 [id number] #### [facility] [address] [place] [address] Dr. Bisi Barker Age Gdln ACOG Testing 30-65 Normal [facility] Comment on above: Performed By: #### 4 [id number] #### [facility] [address] [place] [address] Dr. Bisi Barker DIAGNOSIS: Comment Normal [facility] Comment on above: Result Comment: NEGA TIVE FOR INTRAEPITHELIAL LESION OR MALIGNANCY. Performed at: WB Performed By: #### 4 [id number] #### [facility] [address] [place] [address] Dr. Bisi Barker HPV Aptima Negative Normal Negative [facility] Comment on above: Result Comment: This nucleic acid amplification test detects fourteen high-risk HPV types (16,18,31,33,35,39,45,51,52,56,58,59,66,68) without differentiation. Performed at: =G Performed By: #### 4 [id number] #### [facility] [address] [place] [address] Dr. Bisi Barker HPV Genotype Reflex Comment Normal [facility] Comment on above: Result Comment: Crit eria not met, HPV Genotype not performed. Performed at: WB Performed By: #### 4 [id number] #### [facility] [address] [place] [address] Dr. Bisi Barker Methodology: Comment Normal [facility] Comment on above: Result Comment: This liquid based ThinPrep(R) pap test was screened with the use of an image guided system. Performed at: WB Performed By: #### 4 [id number] #### [facility] [address] [place] [address] Dr. Bisi Barker Note: Comment Normal [facility] Comment on above: Result Comment: The Pap smear is a screening test designed to aid in the detection of premalignant and malignant conditions of the uterine cervix. It is not a diagnostic procedure and should not be used as the sole means of detecting cervical cancer. Both false-positive and false-negative reports do occur. . Performed at: WB Performed By: #### 4 [id number] #### [facility] [address] [place] [address] Dr. Bisi Barker Performed by: Comment Normal [facility] Comment on above: Result Comment: Ngozi Hamlin, Timber Watchman (ASCP) Performed at: WB Performed By: #### 4 [id number] #### [facility] [address] [address] [address] Bisi Barker Specimen adequacy: Comment Normal [facility] Comment on above: Result Comment: Sati sfactory for evaluation. Endocervical and/or squamous metaplastic cells (endocervical component) are present. Performed at: WB Performed By: #### 4 [id number] #### [facility] [address] [place], [place] [address] Dr. Bisi Barker CNCOon 02-11-2017 CNCO Letter [employer] [address] [address]Zsvwf: [phone]: [address] [address]Mgeio: [phone]: [id number] [place], [place] [address]Rjgyi: [phone]: Toll Free: [phone] [email or web address] too Roldan M.D., Jhon Mora M.D.Barry Camarena M.D.Samara Hernandez D.O..Oksana Benson M.D.Jarod Stovall M.D.February 11, 2017[place] [id number] [facility] [address]Wvpy Ms. Storey,You missed your scheduled appointment on Saturday February 11, 2017. Pleasecall our office to reschedule. If you need to cancel any futureappointments, please call to give us 24 hour notice so that we can offer yourappointment to another patient.Sincerely,Samara Canales M.D. Normal [facility] HOSP 12-03-2016 HOSP Infusion Center (HEMTCL) RALEIGHPHILLIP ([id number]) 1990 FDate Time Provider Eucwhywkkl68/24/17 1:00 PM CHAIR 1 JOSE HEMTCL During your visit today, we recorded the following information about you: Temperature Pulse Respiration Blood pressure 98.9 degrees 76/minute 18/minute 97/64Referring Provider: SAMARA HERNANDEZ [[id number]]Allergies As of Date: 12/03/2016(No Known Allergies)Date Reviewed: 12/03/2016Reviewed by: Kristi (Rn) JAD Partida - Fully AssessedPrimary Visit Diagnosis:Anemia, unspecified type [D64.9]Order(s):TREATMENT PARAMETER-NOT NEEDED [[id number]] Order #: [id number]: 1 HEMONC NURSING COMMUNICATION [[id number]] Order #: [id number]: 1 STANDING HEMONC NURSING COMMUNICATION [[id number]] Order #: [id number]: 1 STANDING HEMONC NURSING COMMUNICATION [[id number]] Order #: [id number]: 1 STANDING HEMONC NURSING COMMUNICATION [[id number]] Order #: [id number]: 1 STANDING HEMONC NURSING COMMUNICATION [[id number]] Order #: [id number]: 1 STANDING HEMONC NURSING COMMUNICATION [[id number]] Order #: [id number]: 1 STANDING [] iron sucrose 200 mg [...] (1 ML) INJECTION* 12/03/2016 Route: INTRAMUSCULAEncounter Number: [id number] Status:Closed by KRISTI PARTIDA on 12/03/16 [facility] CNOVSPon 11-19-2016 CNOVSP Visit (SP) Office (HEMACL) PHILLIP STOREY ([id number]) 1990 [facility] Time Provider Tkrfyngahv42/10/17 11:00 AM SAMARA HERNANDEZ HEMACL During your visit today, we recorded the following information about you: Temperature Pulse Respiration Blood pressure 97.8 degrees 78/minute 18/minute 96/61 Weight Height 59.6 kg 1.632 Clara Berger 11/19/2016 11:15 AM SignedPatient states feeling more fatigue.Samara Hernandez DO 11/23/2016 9:43 AM SignedPATIENT NAME: Juan Luis StoreyMRN: [id number] PHYSICIAN: IFTIKHAR RAZO[address] [place] [address] CARE PHYSICIAN: Iftikhar RazoOTHER PHYSICIANS:CHIEF COMPLAINT: Anemia, unspecified type (primary encounter diagnosis)ASSESSMENT/PLAN :(D64.9) Anemia, unspecified type (primary encounter diagnosis)1. Anemia, [...] 02/19/2017), or f/u 3 months. thats it.. 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 No period sinceaugust . Eating ice a litle bit. May be [...] tingling. BACK: Notenderness to palpation. No flank tenderness.MEDICATIONS:bu PROPion XL (WELLBUTRIN XL) 150 mg 24 hr [...] Never Used- Alcohol use NoCOUNSELING:I discussed with Phillipshmuel the natural history, treated course, and prognosis ofAnemia, unspecified type (primary encounter diagnosis); my impression as wellas the rationale, logistics, risks, benefits, and alternatives to themanagement options noted above; and my recommendations listed below. Thepatient Phillipshmuel Storey verbalized understanding and agreed with theserecommendations and plan. I answered all questions satisfactorily..Mariano Hernandez D.O.Medical OncologistNoLifecare Hospital of [facility] [place], [place]Referring Provider: SAMARA HERNANDEZ [[id number]]Allergies As of Date: 11/19/2016(No Known Allergies)Date Reviewed: [...] encounter BUPROPION XL 150 MG TAB >> May Ab 11/19/2016 11:15 AM >> AB MayNov 19, 2016 11:15 AM Received from: External Pharmacy HYDROXYZINE HCL 50 MG TABLET >> May Ab 11/19/2016 11:15 AM >> AB MayNov 19, 2016 11:15 AM Received from: External PharmacyProblem List As Of Date 11/19/2016 Noted Resolved Anemia [D64.9] INVALID FOR*Visit Notes:>> May Ab FriNov 19, 2016 11:15 AM Status: SignedPatient states feeling more fatigue.Encounter Status:Closed by SAMARA HERNANDEZ DO on 11/23/16 Normal [facility] PROGRESSon 11-19-2016 PROGRESS HNO ID: [id number] thor: Samara HernandezSer: (none)Author Type: PhysicianType: Progress NotesFiled: 11/23/2016 9:43 AMNote Text:PATIENT NAME: Juan Luis Richey RaleighMRN: [id number] PHYSICIAN: IFTIKHAR RAZO[address] [place] [id number] CARE PHYSICIAN: Iftikhar RazoOTHER PHYSICIANS:CHIEF COMPLAINT: Anemia, unspecified type (primary encounter diagnosis)ASSESSMENT/PLAN :(D64.9) Anemia, unspecified type (primary encounter diagnosis)1. Anemia, [...] 02/19/2017), or f/u 3 months. thats it.. 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 Otherwise she does not seem verysymptomatic from her anemia.July 30, 2016 not eating ice. She doesn't feel a lot different otherwise. Still a bittired. Less than previously. Periods settle down a bit. Has not seenDr. Jesica yet, scheduled for sometime this month.After her [...] tingling. BACK: Notenderness to palpation. No flank tenderness.MEDICATIONS:bu PROPion XL (WELLBUTRIN XL) 150 mg 24 hr [...] I answered all questions satisfactorily..Mariano Hernandez D.O.Medical OncologistSun[place], [place] Normal [facility] Remote CBCDIF (for [facility] use o nly)on 11-19-2016 Abs Baso 0.02 k/uL Normal <0.11 [facility] Abs [place] 0.40 k/uL Normal 0.00-0.86 [facility] Abs Neut 3.13 k/uL Normal 1.45-7.50 [facility] Basophils/100 WBC Auto (Bld) 0.4 % Normal [facility] Eosinophils 0.05 10*3/uL Normal <0.46 [facility] Eosinophils/100 leukocytes 0.9 % Normal [facility] Erythrocyte distribution width Auto Ratio (RBC) 13.5 % Normal 11.5-15.0 [facility] Erythrocytes (RBC) 3.87 10*6/uL Low 3.90-5.20 [facility] Hematocrit (HCT) 33.0 % Low 36.0-46.0 [facility] Hemoglobin mass conc (Bld) 10.5 g/dL Low 11.5-15.5 [facility] Lymphocytes 1.70 10*3/uL Normal 1.00-4.00 [facility] Lymphocytes/100 leukocytes 32.1 % Normal [facility] MCH 27.1 pG Normal 26.0-34.0 [facility] MCHC mass conc (RBC) 31.8 g/dL Normal 30.5-36.0 [facility] MCV 85.3 fL Normal 80.0-100.0 [facility] Monocytes/100 leukocytes 7.5 % Normal [facility] Neutrophils/100 WBC Auto (Bld) 59.1 % Normal [facility] Platelet mean volume (PMV) 11.0 fL Normal 9.0-12.7 [facility] Platelets 288 10*3/uL Normal 150-400 [facility] WBC (Leukocytes) 5.30 10*3/uL Normal 3.70-11.00 [facility] Remote iSTAT BMP (for [facility] us e only)on 11-19-2016 Anion gap 11 mmol/L Normal 0-15 [facility] BUN (urea nitrogen) 12 mg/dL Normal 8-25 [facility] Chloride 105 mmol/L Normal 98-110 [facility] CO2 24 mmol/L Normal 23-32 [facility] Creatinine 0.70 mg/dL Normal 0.70-1.40 [facility] eGFR (non-black) mL/min/{1.73_m2} Normal Cl [facility] Comment on above: Result Comment: eGFR (Estimated [...] Glucose mass conc 79 mg/dL Normal 65-100 [facility] Ionized Calcium, WB 1.14 mmol/L Normal 1.08-1.30 [facility] Comment on above: Result Comment: Lore se note: This value represents ionized calcium not total calcium. Potassium molar conc 4.0 mmol/L Normal 3.5-5.0 [facility] Sodium 140 mmol/L Normal 132-148 [facility] Ferritinon 10-29-2016 Ferritin 19.8 ng/mL Normal 14.7-205.1 [facility] Comment on above: Performed By: #### I LUZ LUNA ####[place] [phone] Iron and TIBCon 10-29-2016 Iron 21 ug/dL Low 41-186 [facility] Comment on above: Performed By: #### I CHERYL, FERR ####[place] [phone] TIBC 331 ug/dL Normal 232-386 [facility] Comment on above: Performed By: #### Tatum LUNA FERR ####[address] [phone] Transferrin Saturatn 6 % Low 15-57 [facility] Comment on above: Performed By: #### Tatum LUNA FERR ####[address] [phone] Remote CBCDIF (for [facility] use o nly)on 10-29-2016 Abs Baso 0.02 k/uL Normal 0.00-0.10 [facility] Abs [place] 0.42 k/uL Normal 0.00-0.86 [facility] Abs Neut 3.06 k/uL Normal 1.45-7.50 [facility] Basophils/100 WBC Auto (Bld) 0.3 % Normal [facility] Eosinophils 0.11 10*3/uL Normal 0.00-0.45 [facility] Eosinophils/100 leukocytes 1.8 % Normal [facility] Erythrocyte distribution width Auto Ratio (RBC) 12.9 % Normal 11.5-15.0 [facility] Erythrocytes (RBC) 3.90 10*6/uL Normal 3.90-5.20 [facility] Hematocrit (HCT) 34.0 % Low 36.0-46.0 [facility] Hemoglobin mass conc (Bld) 10.8 g/dL Low 11.5-15.5 [facility] Lymphocytes 2.37 10*3/uL Normal 1.00-4.00 [facility] Lymphocytes/100 leukocytes 39.6 % Normal [facility] MCH 27.7 pG Normal 26.0-34.0 [facility] MCHC mass conc (RBC) 31.8 g/dL Normal 30.5-36.0 [facility] MCV 87.2 fL Normal 80.0-100.0 [facility] Monocytes/100 leukocytes 7.0 % Normal [facility] Neutrophils/100 WBC Auto (Bld) 51.3 % Normal [facility] Platelet mean volume (PMV) 10.8 fL Normal 9.0-12.7 [facility] Platelets 268 10*3/uL Normal 150-400 [facility] WBC (Leukocytes) 5.98 10*3/uL Normal 3.70-11.00 [facility] Remote iSTAT BMP (for [facility] us e only)on 10-29-2016 Anion gap 11 mmol/L Normal 0-15 [facility] BUN (urea nitrogen) 9 mg/dL Normal 8-25 [facility] Chloride 104 mmol/L Normal 98-110 [facility] CO2 26 mmol/L Normal 23-32 [facility] Creatinine 0.70 mg/dL Normal 0.70-1.40 [facility] eGFR (non-black) mL/min/{1.73_m2} Normal Cl [facility] Comment on above: Result Comment: eGFR (Estimated [...] Glucose mass conc 83 mg/dL Normal 65-100 [facility] Ionized Calcium, WB 1.16 mmol/L Normal 1.08-1.30 [facility] Comment on above: Result Comment: Nickoa se note: This value represents ionized calcium not total calcium. Potassium molar conc 3.8 mmol/L Normal 3.5-5.0 [facility] Sodium 141 mmol/L Normal 132-148 [facility] Ferritinon 10-01-2016 Ferritin 9.1 ng/mL Low 14.7-205.1 [facility] Comment on above: Performed By: #### I CHERYL, FERR ####[facility] [phone] Iron and TIBCon 10-01-2016 Iron 34 ug/dL Low 41-186 [facility] Comment on above: Performed By: #### I CHERYL, FERR ####[facility] [address] [place] [phone] TIBC 316 ug/dL Normal 232-386 [facility] Comment on above: Performed By: #### I CHERYL, FERR ####[facility] [address] [phone] Transferrin Saturatn 11 % Low 15-57 [facility] Comment on above: Performed By: #### I CHERYL, FERR ####[facility] [address] [place] [phone] Remote CBCDIF (for [facility] use o nly)on 10-01-2016 Abs Baso 0.02 k/uL Normal 0.00-0.10 [facility] Abs [place] 0.53 k/uL Normal 0.00-0.86 [facility] Abs Neut 2.48 k/uL Normal 1.45-7.50 [facility] Basophils/100 WBC Auto (Bld) 0.4 % Normal [facility] Eosinophils 0.09 10*3/uL Normal 0.00-0.45 [facility] Eosinophils/100 leukocytes 1.6 % Normal [facility] Erythrocyte distribution width Auto Ratio (RBC) 13.7 % Normal 11.5-15.0 [facility] Erythrocytes (RBC) 3.85 10*6/uL Low 3.90-5.20 [facility] Hematocrit (HCT) 33.5 % Low 36.0-46.0 [facility] Hemoglobin mass conc (Bld) 10.7 g/dL Low 11.5-15.5 [facility] Lymphocytes 2.36 10*3/uL Normal 1.00-4.00 [facility] Lymphocytes/100 leukocytes 43.1 % Normal [facility] MCH 27.8 pG Normal 26.0-34.0 [facility] MCHC mass conc (RBC) 31.9 g/dL Normal 30.5-36.0 [facility] MCV 87.0 fL Normal 80.0-100.0 [facility] Monocytes/100 leukocytes 9.7 % Normal [facility] Neutrophils/100 WBC Auto (Bld) 45.2 % Normal [facility] Platelet mean volume (PMV) 10.8 fL Normal 9.0-12.7 [facility] Platelets 282 10*3/uL Normal 150-400 [facility] WBC (Leukocytes) 5.48 10*3/uL Normal 3.70-11.00 [facility] Remote iSTAT BMP (for [facility] us e only)on 10-01-2016 Anion gap 13 mmol/L Normal 0-15 [facility] BUN (urea nitrogen) 14 mg/dL Normal 8-25 [facility] Chloride 102 mmol/L Normal 98-110 [facility] CO2 24 mmol/L Normal 23-32 [facility] Creatinine 0.70 mg/dL Normal 0.70-1.40 [facility] eGFR (non-black) mL/min/{1.73_m2} Normal Cl [facility] Comment on above: Result Comment: eGFR (Estimated [...] Glucose mass conc 93 mg/dL Normal 65-100 [facility] Ionized Calcium, WB 1.14 mmol/L Normal 1.08-1.30 [facility] Comment on above: Result Comment: Lore se note: This value represents ionized calcium not total calcium. Potassium molar conc 3.7 mmol/L Normal 3.5-5.0 [facility] Sodium 139 mmol/L Normal 132-148 [facility] Remote CBCDIF (for [facility] use o nly)on 08-29-2016 Abs Baso 0.02 k/uL Normal 0.00-0.10 [facility] Abs [place] 0.52 k/uL Normal 0.00-0.86 [facility] Abs Neut 3.37 k/uL Normal 1.45-7.50 [facility] Basophils/100 WBC Auto (Bld) 0.3 % Normal [facility] Eosinophils 0.10 10*3/uL Normal 0.00-0.45 [facility] Eosinophils/100 leukocytes 1.7 % Normal [facility] Erythrocyte distribution width Auto Ratio (RBC) 18.7 % High 11.5-15.0 [facility] Erythrocytes (RBC) 3.97 10*6/uL Normal 3.90-5.20 [facility] Hematocrit (HCT) 33.0 % Low 36.0-46.0 [facility] Hemoglobin mass conc (Bld) 10.5 g/dL Low 11.5-15.5 [facility] Lymphocytes 1.92 10*3/uL Normal 1.00-4.00 [facility] Lymphocytes/100 leukocytes 32.4 % Normal [facility] MCH 26.4 pG Normal 26.0-34.0 [facility] MCHC mass conc (RBC) 31.8 g/dL Normal 30.5-36.0 [facility] MCV 83.1 fL Normal 80.0-100.0 [facility] Monocytes/100 leukocytes 8.8 % Normal [facility] Neutrophils/100 WBC Auto (Bld) 56.8 % Normal [facility] Platelet mean volume (PMV) 10.0 fL Normal 9.0-12.7 [facility] Platelets 263 10*3/uL Normal 150-400 [facility] WBC (Leukocytes) 5.93 10*3/uL Normal 3.70-11.00 [facility] Remote iSTAT BMP (for [facility] us e only)on 08-29-2016 Anion gap 12 mmol/L Normal 0-15 [facility] BUN (urea nitrogen) 12 mg/dL Normal 8-25 [facility] Chloride 104 mmol/L Normal 98-110 [facility] CO2 24 mmol/L Normal 23-32 [facility] Creatinine 0.80 mg/dL Normal 0.70-1.40 [facility] eGFR (non-black) mL/min/{1.73_m2} Normal Cl [facility] Comment on above: Result Comment: eGFR (Estimated [...] Glucose mass conc 91 mg/dL Normal 65-100 [facility] Ionized Calcium, WB 1.14 mmol/L Normal 1.08-1.30 [facility] Comment on above: Result Comment: Plea se note: This value represents ionized calcium not total calcium. Potassium molar conc 3.7 mmol/L Normal 3.5-5.0 [facility] Sodium 140 mmol/L Normal 132-148 [facility] Vital Signs Date Time Vital Sign Value Performing Clinician Facility 03-08-2024 12:30-0500 Body temperature 99.81 [degF] Wlc 1 [facility] [employer] [facility] 03-08-2024 12:30-0500 Diastolic blood pressure 69 mm[Hg] Wlc 1 [facility] 03-08-2024 12:30-0500 Heart rate 103 /min Wlc 1 [facility] 03-08-2024 12:30-0500 Respiratory rate 18 /min Wlc 1 [facility] [employer] [facility] 03-08-2024 12:30-0500 Systolic blood pressure 109 mm[Hg] Wlc 1 [facility] 03-08-2024 10:10-0500 Body mass index (BMI) [Ratio] 29.62 kg/m2 Wl 1 [facility] 03-08-2024 10:10-0500 Body weight 80.74 kg Wl 1 [facility] 02-18-2024 11:43-0500 Body mass index (BMI) [Ratio] 29.29 kg/m2 Parish Courtney DO Work Phone: [facility] 02-18-2024 11:43-0500 Body weight 79.83 kg Parish Courtney DO Work Phone: [facility] 02-18-2024 11:43-0500 Diastolic blood pressure 72 mm[Hg] Parish Courtney [employer] Work Phone: [facility] 02-18-2024 11:43-0500 Systolic blood pressure 122 mm[Hg] Parish Courtney [employer] Work Phone: [facility] 12-12-2023 11:50-0400 Body temperature 98.91 [degF] Wlc 2 [facility] [employer] [facility] 12-12-2023 11:50-0400 Diastolic blood pressure 66 mm[Hg] Wlc 2 [facility] 12-12-2023 11:50-0400 Heart rate 92 /min Wlc 2 [facility] 12-12-2023 11:50-0400 Respiratory rate 18 /min Wl 2 [facility] [employer] [facility] 12-12-2023 11:50-0400 Systolic blood pressure 100 mm[Hg] Wlc 2 [facility] 12-12-2023 10:31-0400 Body mass index (BMI) [Ratio] 27.96 kg/m2 Wlc 2 [facility] 12-12-2023 10:31-0400 Body weight 76.2 kg Wlc 2 [facility] 12-01-2023 14:25-0400 Body height 165.1 cm Dominique Josh 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 Work Phone: [facility] 12-01-2023 14:25-0400 Body mass index (BMI) [Ratio] 27.89 kg/m2 Dominique Josh [employer] SU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[employer]PLUMBER HELPER Work Phone: [facility] 12-01-2023 14:25-0400 Body temperature 98.8 [degF] Dominique Josh WOOLEN SU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-PLUMBER HELPER Work Phone: [facility] 12-01-2023 14:25-0400 Body weight 76.02 kg Dominique Josh [employer] SU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-PLUMBER HELPER Work Phone: [facility] 12-01-2023 14:25-0400 Diastolic blood pressure 76 mm[Hg] Dominique Josh [employer] SU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[employer]PLUMBER HELPER Work Phone: [facility] 12-01-2023 14:25-0400 Heart rate 71 /min Dominique Josh [employer] SU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-PLUMBER HELPER Work Phone: [facility] 12-01-2023 14:25-0400 Respiratory rate 16 /min Dominique Josh [employer]OL[employer] SU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-PLUMBER HELPER Work Phone: [facility] 12-01-2023 14:25-0400 SaO2% (BldA) [Mass fraction] 99 % Dominique Josh [employer] SU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-PLUMBER HELPER Work Phone: [facility] 12-01-2023 14:25-0400 Systolic blood pressure 111 mm[Hg] Dominique Josh [employer] SU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-PLUMBER HELPER Work Phone: [facility] 04-21-2023 13:05-0400 Body temperature 97.81 [degF] Wl 4 [facility] 04-21-2023 13:05-0400 Diastolic blood pressure 75 mm[Hg] [facility] 4 [facility] 04-21-2023 13:05-0400 Heart rate 78 /min [facility] 4 [facility] 04-21-2023 13:05-0400 Respiratory rate 20 /min [address] 04-21-2023 13:05-0400 Systolic blood pressure 117 mm[Hg] [address] 04-21-2023 10:29-0400 Body mass index (BMI) [Ratio] 27.89 kg/m2 [address] 04-21-2023 10:29-0400 Body weight 76.[address] 02-20-2023 11:48-0500 Body height 165.1 cm Lyndsey Anders MD Work Phone: [facility] 02-20-2023 11:48-0500 Body mass index (BMI) [Ratio] 27.46 kg/m2 Lyndsey Anders MD Work Phone: [facility] 02-20-2023 11:48-0500 Body temperature 98.91 [degF] Lyndsey Anders MD Work Phone: [facility] 02-20-2023 11:48-0500 Body weight 74.84 kg Lyndsey Anders MD Work Phone: [facility] 02-20-2023 11:48-0500 Diastolic blood pressure 72 mm[Hg] Lyndsey Anders MD Work Phone: [facility] 02-20-2023 11:48-0500 Heart rate 104 /min Lyndsey Anders MD Work Phone: [facility] 02-20-2023 11:48-0500 SaO2% (BldA) [Mass fraction] 99 % Lyndsey Anders MD Work Phone: [facility] 02-20-2023 11:48-0500 Systolic blood pressure 114 mm[Hg] Lyndsey Anders MD Work Phone: [facility] [employer] [facility] 02-06-2023 12:54-0500 Diastolic blood pressure 69 mm[Hg] Pfo 3 [facility] [employer] [facility] 02-06-2023 12:54-0500 Heart rate 92 /min Pfo 3 [facility] [employer] [facility] 02-06-2023 12:54-0500 Respiratory rate 18 /min [facility] 02-06-2023 12:54-0500 SaO2% (BldA) [Mass fraction] 100 % Pfo 3 [facility] [employer] [facility] 02-06-2023 12:54-0500 Systolic blood pressure 104 mm[Hg] Pfo 3 [facility] [employer] [facility] 02-06-2023 11:37-0500 Body height 165.1 cm Pfo 3 [facility] 02-06-2023 11:37-0500 Body mass index (BMI) [Ratio] 27.46 kg/m2 Pfo 3 [facility] [employer] [facility] 02-06-2023 11:37-0500 Body temperature 98.4 [degF] [facility]fo 3 [facility] [employer] [facility] 02-06-2023 11:37-0500 Body weight 74.84 kg Pfo 3 [facility] Encounters Encounter Date Encounter Type Care Provider Facility Start: 03-08-2024 End: 03-08-2024 ambulatory [facility] Infusion Chair 1 [facility] Comment on above: Crohn's disease of b oth small and large intestine with intestinal obstruction (CMS-HCC) (Primary Dx) Start: 02-18-2024 End: 02-18-2024 Bamboo flowsheet Parish Courtney DO Work Phone: [facility] Start: 02-18-2024 End: 02-18-2024 Bamboo flowsheet Parish Courtney DO Work Phone: [facility] Start: 02-18-2024 End: 02-18-2024 ambulatory PARISH COURTNEY Not Available Start: 02-18-2024 End: 02-18-2024 flow sheet Parish Courtney DO Work Phone: [facility] Comment on above: Second trimester pre gnancy; 15 weeks gestation of ; H/O oligohydramnios in prior , currently Start: 02-14-2024 End: 02-14-2024 Clinisync Result Encounter Parish Valdez DO Work Phone: [facility] Unsolicited Start: 02-14-2024 End: 02-14-2024 Clinisync Result Encounter Parish Valdez DO Work Phone: [facility] Unsolicited Start: 02-03-2024 End: 02-03-2024 Orders Only Sharda Montiel MD Work Phone: [facility] Comment on above: Therapeutic drug mon itoring (Primary Dx) Start: 01-31-2024 End: 01-31-2024 Emergency department patient visit [facility] Start: 01-26-2024 End: 01-26-2024 ambulatory [facility] Start: 01-26-2024 End: 01-26-2024 ambulatory [facility] Start: 01-23-2024 End: 01-23-2024 ambulatory YAQUELIN DANIELSEY Not Available Start: 01-23-2024 End: 01-23-2024 Office outpatient visit 5 minutes [facility] Courtney Nurse [facility] Comment on above: GA: 11w2d Start: 01-13-2024 End: 01-13-2024 Orders Only Dominique Moya 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-PLUMBER HELPER Work Phone: [facility] Comment on above: Iron deficiency anem ia due to chronic blood loss (Primary Dx); Iron malabsorption; Iron deficiency anemia, unspecified Start: 01-06-2024 End: 01-06-2024 Orders Only Dominique Moya 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[employer]PLUMBER HELPER Work Phone: [facility] Comment on above: Iron deficiency anem ia due to chronic blood loss (Primary Dx); Iron malabsorption; Iron deficiency anemia, unspecified Start: 01-03-2024 End: 01-03-2024 Emergency department patient visit [facility] Start: 12-17-2023 End: 12-18-2023 Telephone encounter Raf Zarco RN [facility] Start: 12-12-2023 End: 12-12-2023 ambulatory [facility] Infusion Chair 2 [facility] Comment on above: Crohn's disease of b oth small and large intestine with intestinal obstruction (CMS-HCC) (Primary Dx) Start: 12-01-2023 End: 12-01-2023 Office outpatient visit 25 minutes Dominique Magen Josh MILLER-PLUMBER HELPER Work Phone: [facility] Comment on above: Iron deficiency (Ping hussein Dx); Crohn's disease of both small and large intestine with intestinal obstruction (CMS-HCC); Chronic fatigue; Leg cramps; Noncompliance; Iron deficiency anemia due to chronic blood loss; Iron malabsorption; Iron deficiency anemia, unspecified Start: 12-01-2023 End: 12-01-2023 ambulatory DOMINIQUE MOYA [facility] Start: 12-01-2023 End: 12-01-2023 ambulatory BARKER Lauren JUAREZ [facility] Start: 10-31-2023 End: 10-31-2023 ambulatory [facility] Start: 09-17-2023 End: 09-17-2023 ambulatory [facility] Start: 09-15-2023 End: 09-15-2023 ambulatory YAQUELIN HORNE Not Available Start: 09-15-2023 End: 09-15-2023 ambulatory [facility] Start: 09-03-2023 End: 09-03-2023 ambulatory [facility] Start: 08-20-2023 End: 08-20-2023 ambulatory [facility] Start: 08-04-2023 End: 08-04-2023 ambulatory SHARDA MONTIEL [facility] Start: 08-04-2023 End: 08-04-2023 [facility] Start: 04-21-2023 Telephone encounter Sharda Elliott MD Work Phone: [facility] Start: 04-21-2023 End: 04-21-2023 ambulatory [facility] Comment on above: Crohn's disease of b oth small and large intestine with intestinal obstruction (CMS-HCC) (Primary Dx) Start: 04-14-2023 Telephone encounter Nic Quintana [facility] Start: 03-31-2023 [facility] Start: 03-19-2023 End: 03-19-2023 ambulatory [facility] Start: 02-20-2023 End: 02-20-2023 Office outpatient visit 25 minutes Lyndsey Anders MD Work Phone: [facility] Comment on above: Reactive airway dise ase with acute exacerbation, unspecified asthma severity, unspecified whether persistent (Primary Dx); Shortness of breath; COVID-19; Sinusitis, unspecified chronicity, unspecified location Start: 02-20-2023 End: 02-20-2023 ambulatory [facility] Start: 02-06-2023 End: 02-06-2023 ambulatory [facility] Infusion Chair 3 Ally Lovell [facility] Comment on above: Iron deficiency anem ia due to chronic blood loss (Primary Dx); Iron deficiency anemia, unspecified; Iron malabsorption Start: 04-30-2022 End: 04-30-2022 ambulatory SEBASTIAN BELLOMISAurelia Facility:[facility] Start: 12-03-2016 End: 12-04-2016 Ambulatory SAMARA HERNANDEZ [facility] Start: 11-19-2016 End: 11-26-2016 Ambulatory SAMARA HERNANDEZ [facility] Start: 10-29-2016 End: 10-30-2016 Ambulatory SAMARA HERNANDEZ [facility] Start: 10-01-2016 End: 10-01-2016 Ambulatory SAMARA HERNANDEZ [facility] Start: 08-29-2016 End: 08-29-2016 Ambulatory SAMARA Kirkpatrick [facility] Procedures Date Procedure Procedure Detail Performing Clinician Start: 02-18-2024 Urnls dip stick/tabl et rgnt non-auto w/o micrscp Parish Courtney DO Work Phone: Start: 02-14-2024 ALL CBC WITH AUTO DIFF Parish Courtney DO Work Phone: Start: 01-23-2024 Urnls dip stick/tabl et rgnt non-auto w/o micrscp Parish Courtney DO Work Phone: Start: 12-01-2023 Follow-up visit Follow-up DOMINIQUE MOYA Start: 10-31-2023 Follow-up visit Follow-up SHARDA MONTIEL Start: 09-17-2023 Adult depression scr eening assessment Dominique Moya 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[employer]UMBER HELPER Work Phone: Start: 09-17-2023 Microscopic observat ion [Identifier] in Cervix by Cyto stain Dominique Moya 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[employer]PLUMBER HELPER Work Phone: Start: 11-23-2020 Adult depression scr eening assessment Pfo 3 Plan of Treatment Date Care Activity Detail Author Start: 09-16-2026 Screening for malign ant neoplasm of cervix Pap Smear [facility] Start: 01-30-2025 Adult BMI Screening Adult BMI Screen ing [facility] Start: 01-30-2025 Tobacco Screening Tobacco Screening [facility] Start: 01-02-2025 Adult BMI Screening Adult BMI Screen ing [facility] Start: 01-02-2025 Tobacco Screening [facility]ening [facility] Start: 12-11-2024 Adult BMI Screening Adult BMI Screen ing [facility] Start: 12-02-2024 End: 12-02-2024 Patient encounter procedure 12/02/2024 10:15 AM EDT Office Visit [facility] [address] [place] [phone] Mj Pizarro MD [facility] [address] [place] [phone] [facility] Start: 10-30-2024 Adult BMI Screening Adult BMI Screen ing [facility] Start: 10-30-2024 Tobacco Screening Tobacco Screening [facility] Start: 09-16-2024 Depression Screening Depression Scre ening [facility] Start: 05-31-2024 End: 05-31-2024 ambulatory 05/31/2024 10:00 AM EDT Infusion [facility] [address] [phone] [facility] Start: 04-20-2024 Adult BMI Screening Adult BMI Screen ing [facility] Start: 04-19-2024 End: 04-19-2024 ambulatory 04/19/2024 10:30 AM EDT Infusion [facility] [address] [phone] [facility] Start: 04-19-2024 End: 04-19-2024 Patient encounter procedure 04/19/2024 10:00 AM EDT Office Visit [facility] [address] [place] [phone] Sharda Montiel MD [address] [facility], [address] [place] [address] [facility] Start: 03-17-2024 End: 03-17-2024 Patient encounter procedure 03/17/2024 10:30 AM EST Routine [facility] [address] [place] [id number] Yaquelin Horne PA [address] [place] [address] [facility] Start: 03-08-2024 End: 03-08-2024 ambulatory 03/08/2024 10:00 AM EST Infusion [facility] [address] [phone] [facility] Start: 02-21-2024 Adult BMI Screening Adult BMI Screen ing [facility] Start: 02-21-2024 Tobacco Screening Tobacco Screening [facility] Start: 02-18-2024 End: 02-18-2024 Patient encounter procedure 02/18/2024 11:30 AM EST Routine [facility] [address] [place] [phone] Parish Valdez, DO [address] [place] [address] [facility] Start: 01-31-2024 Adult BMI Screening Adult BMI Screen ing [facility] Start: 01-31-2024 Tobacco Screening Tobacco Screening [facility] Start: 01-26-2024 End: 01-26-2024 ambulatory 01/26/2024 10:00 AM EST Infusion [facility] [address] [phone] [facility] Start: 01-23-2024 End: 01-22-2025 ABO/Rh ABO/Rh Lab Routine Missed menses , unspecified gestational age Expected: 01/23/2024 (Approximate), Expires: 01/22/2025 [facility] Comment on above: Expected: 01/23/2024 (Approximate), Expires: 01/22/2025 Start: 01-23-2024 End: 01-22-2025 Blood type and Indirect antibody screen panel - Blood Type and screen Lab Routine Missed menses , unspecified gestational age Expected: 01/23/2024 (Approximate), Expires: 01/22/2025 [facility] Work Phone: Comment on above: Expected: 01/23/2024 (Approximate), Expires: 01/22/2025 Start: 01-23-2024 End: 01-22-2025 Drugs of abuse panel - Urine by Screen method Rapid drug screen, urine Lab Routine , unspecified gestational age Encounter for supervision of normal first in first trimester Expected: 01/23/2024 (Approximate), Expires: 01/22/2025 [facility] Comment on above: Expected: 01/23/2024 (Approximate), Expires: 01/22/2025 Start: 01-23-2024 End: 01-22-2025 US Pelvis transvaginal US OB transvaginal Imaging Routine Missed menses Expected: 01/23/2024 (Approximate), Expires: 01/22/2025 [facility] Comment on above: Expected: 01/23/2024 (Approximate), Expires: 01/22/2025 Start: 12-22-2023 End: 12-22-2023 Patient encounter procedure 12/22/2023 3:40 PM EST [facility] [address] [place] [phone] Hilary Aviles, [employer]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-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 HELPER [address], [place] [address] [facility] Start: 12-12-2023 End: 12-12-2023 ambulatory 12/12/2023 10:00 AM EDT Infusion [facility] [address] [place] [phone] [facility] Start: 11-20-2023 End: 11-20-2023 Patient encounter procedure 11/20/2023 1:00 PM EDT Office Visit [facility] [place] [phone] [place] [address] [place] [address] [address] [place] [address] Ally Richey [facility] Start: 10-12-2023 Influenza vaccination Influenza Vacc ine [facility] Start: 06-17-2023 End: 06-17-2023 Patient encounter procedure 06/17/2023 11:15 AM EDT [facility] [address] [place] [phone] Meaghan King PA-C [address] [facility] [address] [place] [address] [facility] Start: 06-10-2023 End: 06-10-2023 ambulatory 06/10/2023 10:30 AM EDT Infusion [facility] [address] [place], [place] [address] [phone] [facility] Start: 04-21-2023 End: 04-21-2023 ambulatory 04/21/2023 10:00 AM EDT Infusion [facility] [address] [place], [place] [address] [phone] [facility] Start: 03-31-2023 End: 03-31-2023 ambulatory 03/31/2023 10:00 AM EST Infusion [facility] [address] [place] [phone] [facility] Start: 02-17-2023 End: 02-17-2023 ambulatory 02/17/2023 11:30 AM EST Infusion [facility] [address] [place], [place] [address] [address] [facility] Start: 10-11-2022 Influenza vaccination Influenza Vacc ine [facility] Start: 11-23-2021 Depression Screening Depression Scre ening [facility] Start: 2010 Screening for malign ant neoplasm of cervix Pap Smear [facility] Start: 2008 DTaP,Tdap and Td Vaccines (1 - Tdap) DTaP,Tdap and Td Vaccines (1 - Tdap) [facility] Start: 11-11-2007 Adult BMI Follow Up Plan Adult BMI F ollow Up Plan [facility] Bacteria identified in Urine by Culture Urine culture Microbiology Routine Missed menses Ordered: 01/23/2024 [facility] Comment on above: Ordered: 01/23/2024 CBC W Auto Different ial panel - Blood CBC and differential Lab Routine Missed menses , unspecified gestational age Ordered: 01/23/2024 [facility] Comment on above: Ordered: 01/23/2024 Hemoglobin A1c/Hemoglobin.total in Blood Hemoglobin A1c Lab Routine Missed menses , unspecified gestational age Ordered: 01/23/2024 [facility] Comment on above: Ordered: 01/23/2024 Hepatitis B virus surface Ag [Presence] in Serum or Plasma by Immunoassay Hepatitis B surface antigen Lab Routine Missed menses , unspecified gestational age Ordered: 01/23/2024 [facility] Comment on above: Ordered: 01/23/2024 Hepatitis C virus Ab [Presence] in Serum or Plasma by Immunoassay Hepatitis C antibody Lab Routine Missed menses , unspecified gestational age Ordered: 01/23/2024 [facility] Comment on above: Ordered: 01/23/2024 HIV-1/HIV-2 antigen/antibody combination immunoassay HIV-1 and HIV-2 antibodies Lab Routine Missed menses , unspecified gestational age Ordered: 01/23/2024 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 Guidelines for O2: Yes; Document: [email or web address]/Or ders/Respiratory%20Care% 20Guidelines/CPG%20Oxyge n%[email or web address] Oxygen Therapy - Maintain SpO2: 90% or greater; *ROAD TRAFFIC CONTROLLER Guidelines for O2: Yes; Document: [email or web address]_Reference/Or ders/Respiratory%20Care% 20Guidelines/CPG%20Oxyge n%[id number].pdf Respiratory Care STAT Iron deficiency anemia due to chronic blood loss Iron deficiency anemia, unspecified Iron malabsorption As Needed for 1 Occurrences starting 02/06/2023 until 02/07/2023 [employer] Work Phone: Comment on above: As [...] 1 Occurrences starti ng 02/20/2023 until 02/21/2024 Reagin Ab [Presence] in Serum by RPR RPR Lab Routine Missed menses , unspecified gestational age Ordered: 01/23/2024 [facility] Comment on above: Ordered: 01/23/2024 Rubella antibody, IgG Rubella an tibody, IgG Lab Routine Missed menses , unspecified gestational age Ordered: 01/23/2024 [facility] Comment on above: Ordered: 01/23/2024 End: 02-02-2025 Thiopurine Metabs Thiopurine Metabs Lab Routine Therapeutic drug monitoring 1 Occurrences starting 02/03/2024 until 02/02/2025 [facility] Work Phone: Comment on above: 1 Occurrences starti ng 02/03/2024 until 02/02/2025 Payers Date Payer Category Payer Medicaid [place] [id number] 2022-Present [address] [place] [address] [id number] 2022 Medicaid [id number] 2021 Commercial Managed C are - POS AETNA [id number] 2021 Managed Care HMO (unspecified) AETNA [id number] 2021 Private Health Insurance AETNA AETNA POS II [id number] 2021-Present [phone] [address] [place] [address] [id number] [id number] 1989 Unknown [id number] 2.16.840.1.307140.3.579. 2.593 1989 Unknown [id number] 2.16.840.1.901015.3.579. 2.1286 1989 Unknown [id number] 2.16.840.1.635366.3.579. 2.1286 1989 Unknown [id number] 2.16.840.1.404040.3.579. 2.1286 1989 Unknown [id number] 2.16.840.1.486931.3.579. 2.1286 1989 Unknown [id number] 2.16.840.1.481705.3.579. 2.1286 1989 Unknown [id number] 2.16.840.1.629007.3.579. 2.1286 1989 Unknown [id number] 2.16.840.1.974629.3.579. 2.1286 1989 Unknown [id number] 2.16.840.1.305590.3.579. 2.1285 1989 Unknown [id number] 2.16.840.1.262447.3.579. 2.6 1989 Unknown [id number] 2.16.840.1.139968.3.579. 2.1285 1989 Unknown [id number] 2.16.840.1.647348.3.579. 2.1259 1989 Unknown [id number] 2.16.840.1.038655.3.579. 2.9 1989 Unknown [id number] 2.16.840.1.800501.3.579. 2.9 1989 Unknown [id number] 2.16840.1.602854.3.579. 2.1285 1989 Unknown [id number] 2.16.840.1.741243.3.579. 2.1285 1989 Unknown [id number] 2.16.840.1.206224.3.579. 2.1285 1989 Unknown [id number] 2.16.840.1.329321.3.579. 2.1285 1989 Unknown [id number] 2.16.840.1.216574.3.579. 2.1285 1989 Unknown [id number] 2.16.840.1.490911.3.579. 2.1285 1989 Unknown [id number] 2.16.840.1.297056.3.579. 2.1285 1989 Unknown [id number] 2.16.840.1.410888.3.579. 2.1285 1989 Unknown [id number] 2.16.840.1.939864.3.579. 2.1285 1989 Unknown [id number] 2.16.840.1.032967.3.579. 2.1286 1959 Private Health Insurance [id number] Social History Date Type Detail Facility Start: 12-27-2021 End: 10-09-2022 Tobacco smoking status NHIS Never smoked tobacco [facility] Start: 12-27-2021 End: 10-09-2022 Tobacco use and exposure Smokeless tobacco non-user [facility] Start: 02-06-2023 End: 01-31-2024 Alcohol intake Current non-drinker of alcohol (finding) [facility] Start: 02-29-2020 End: 01-30-2023 History of Social function [facility] Start: 02-29-2020 End: 01-30-2023 Tobacco use panel [facility] Adolescent depressio n screening assessment 11 [facility] Start: 1990 Sex Assigned At Not on file [facility] Start: 09-13-2014 Sex Female (finding) [facility] Start: 11-19-2023 [facility] Start: 01-23-2024 Alcoholic beverage intake Lifetime non-drinker (finding) [facility] Start: 1990 Sex assigned at Female [facility] Start: 09-12-2022 Gender identity Identifies as female gender (finding) [facility] Start: 09-12-2022 Sexual orientation Heterosexual (finding) [facility] Goals Date Patient Goal Desired Activity /State Personal health goal Comment on above: Formatting of this n ote might be different from the original. Evaluation of progress towards goal: patient to discharge to home. Clinical Notes 02-06-2023 to 03-08-2024 Lupe Barba RN - 03/08/2024 10:00 AM Bart Zarco RN - 03/08/2024 10:00 AM Vince Barba RN - 03/08/2024 10:00 AM Bry Coronado LPN - 02/18/2024 11:30 AM ESTPatient Instructions Note Date & Type Note Facility 03-08-2024 History of Present illness Narrative Infusion start time: 1040 Patient here for Avsola infusion. Patient denies any recent infections or on antibiotics, open wounds, recent/future surgery, vaccinations or insurance changes. IV started with 22g needle to left forearm by Yaquelin Barba RN x1 attempt. Patient tolerated well. Avsola Lot# [id number] 2vials Exp- 09/10/2027 Lot#[id number] 2 vials Exp08/10/2027 Time out performed prior to medication administration. Name, , medication(s) verified 10:40 am Time out performed with Yaquelin STREET. Avsola to be mixed and administered to patient per current treatment plan orders 1240 patient infusion complete. IV flushed with 10 ml normal saline. IV discontinued, catheter intact, vitals WNL. Patient tolerated infusion well documented in this encounter [facility] 02-18-2024 History of Present illness Narrative Reason for Appointment: Patient ID: Juan Luis Storey is a 33 y.o. female who presents for Routine Visit Patient presents today for Return OB appointment. MEDICATIONS Current Outpatient Medications Medication Instructions azaTHIOprine (Imuran) 50 MG tablet TAKE 3 TABLETS BY MOUTH IN THE MORNING cholecalciferol (VITAMIN D-3) 1,000 Units Cobalamin Combinations (B-12) 100-5000 MCG sublingual tablet B12 folic acid (FOLVITE) 1,000 mcg, Oral, Every morning inFLIXimab-dyyb (Inflectra) 100 MG injection 5 mg/kg, Intravenous magnesium oxide (MAG-OX) 400 mg, Oral, Daily ALLERGIES Allergies Allergen Reactions Sertraline Diarrhea Pt reports this is not an allergy PROBLEMS Active Ambulatory Problems Diagnosis Date Noted No Active Ambulatory Problems Resolved Ambulatory Problems Diagnosis Date Noted No Resolved Ambulatory Problems Past Medical History: Diagnosis Date Acute Crohn's disease with complication (CMS/HCC) At standard risk for fall BMI 25.0-25.9,adult HISTORY PAST MEDICAL HISTORY SOCIAL HISTORY Past Medical History: Diagnosis Date Acute Crohn's disease with complication (CMS/HCC) At standard risk for fall BMI 25.0-25.9,adult Social History Tobacco Use Smoking status: Never Smokeless tobacco: Never Substance Use Topics Alcohol use: Never Drug use: Never FAMILY HISTORY Family History Problem Relation Name Age of Onset Diabetes Mother Hypertension Mother Anemia Mother SURGICAL HISTORY Past Surgical History: Procedure Laterality Date COLONOSCOPY 2018 REVIEW OF SYSTEMS Review of Systems: Review of Systems Constitutional: Negative. HENT: Negative. Eyes: Negative. Respiratory: Negative. Cardiovascular: Negative. Gastrointestinal: Negative. Genitourinary: Negative. Musculoskeletal: Negative. Skin: Negative. Neurological: Negative. All other systems reviewed and are negative. Hematological: Negative. Endocrine: Negative. Allergic/Immunologic: Negative. OBJECTIVE Objective: Physical Exam Constitutional: Appearance: Normal appearance. She is well-developed. Cardiovascular: Rate and Rhythm: Normal rate and regular rhythm. Pulmonary: Effort: Pulmonary effort is normal. Breath sounds: Normal breath sounds. Abdominal: General: Bowel sounds are normal. There is no distension. Palpations: Abdomen is soft. Tenderness: There is no abdominal tenderness. There is no guarding or rebound. Musculoskeletal: General: No swelling. Normal range of motion. Right lower leg: No edema. Left lower leg: No edema. Neurological: Mental Status: She is alert and oriented to person, place, and time. Skin: General: Skin is warm and dry. Psychiatric: Mood and Affect: Mood normal. Behavior: Behavior normal. Vitals and nursing note reviewed. Exam conducted with a chief of hospital medicine present. Vitals: Estimated body mass index is 29.29 kg/m as calculated from the following: Height as of 09/15/23: 5' 5 . Weight as of this encounter: 176 lb. BP: 122/72 Patient's last menstrual period was 11/05/2023. ASSESSMENT & PLAN ICD-10-CM 1. Second trimester Z34.92 POCT urinalysis dipstick manually resulted 2. 15 weeks gestation of Z3A.15 3. H/O oligohydramnios in prior , currently O09.299 New OB: Patient presents today for 1st time obstetrics appointment with provider. Patient is currently 15w0d . Patients history has been reviewed in great detail including any potential risks. Patient stated she currently has no complaints. Expectations throughout regarding labs, ultrasounds, and appointments have been discussed with the patient in detail. It was reiterated that the patient is to drink 6-8 glasses of water a day, eat 6 small meals a day, do not consume raw or undercooked meat, and stay away from [facility]. Patient has been consulted regarding any further do's and don'ts of . Patient voiced understanding and all questions and concerns were answered. Pt advised to take a baby aspirin. Pt declined MFM referral at this time. Orders Placed This Encounter Procedures POCT urinalysis dipstick manually resulted Follow Up: Patient is to return in 4 weeks for routine OB appointment. Documented by Karli Coronado LPN on behalf of: Parish Valdez DO documented in this encounter [facility] 01-23-2024 History of Present illness Narrative Reason for Appointment: Patient ID: Juan Luis Storey is a 33 y.o. female who presents for Amenorrhea Patient presents today for a Nurse OB Intake appointment. Patient is 11w2d with a Estimated Date of Delivery: 08/11/24 OB History Para Term AB Living 4 3 3 3 SAB IAB Ectopic Multiple Live Births 3 # Outcome Date GA Lbr Alphonso/2nd Weight Sex Type Anes PTL Lv 4 Current 3 Term 08/28/17 38w0d 7 lb 11 oz F Vag-Spont SWATI 2 Term 02/25/15 38w0d 7 lb 2 oz F Vag-Spont SWATI 1 Term 01/13/13 6 lb 10 oz Vag-Spont EPI SWATI Comments: FOURTH DEGREE TEAR Current Medications: has a current medication list which includes the following prescription(s): azathioprine, cholecalciferol, b-12, folic acid, infliximab-dyyb, magnesium oxide, and ondansetron odt. Medical History: Active Ambulatory Problems Diagnosis Date Noted No Active Ambulatory Problems Resolved Ambulatory Problems Diagnosis Date Noted No Resolved Ambulatory Problems Past Medical History: Diagnosis Date Acute Crohn's disease with complication (CMS/[facility]) At standard risk for fall BMI 25.0-25.9,adult Family History Problem Relation Name Age of Onset Diabetes Mother Hypertension Mother Anemia Mother Social History Tobacco Use Smoking status: Never Smokeless tobacco: Never Substance Use Topics Alcohol use: Never Drug use: Never Past Surgical History: Procedure Laterality Date COLONOSCOPY 2018 Allergies Allergen Reactions Sertraline Diarrhea Pt reports this is not an allergy Vitals: Estimated body mass index is 27.12 kg/m as calculated from the following: Height as of 09/15/23: 5' 5 . Weight as of 09/15/23: 163 lb. BP: Patient's last menstrual period was 11/05/2023. Assessment/Plan Diagnoses and all orders for this visit: Missed menses - Type and screen; Future - ABO/Rh; Future - CBC and differential - Hemoglobin A1c - RPR - Rubella antibody, IgG - Hepatitis B surface antigen - Hepatitis C antibody - HIV-1 and HIV-2 antibodies - Urine culture - US OB transvaginal; Future - POCT , urine manually resulted - POCT urinalysis dipstick manually resulted , unspecified gestational age - Type and screen; Future - ABO/Rh; Future - CBC and differential - Hemoglobin A1c - RPR - Rubella antibody, IgG - Hepatitis B surface antigen - Hepatitis C antibody - HIV-1 and HIV-2 antibodies - Rapid drug screen, urine; Future Encounter for supervision of normal first in first trimester - Rapid drug screen, urine; Future headache in first trimester - magnesium oxide (Mag-Ox) 400 MG tablet; Take 1 tablet (400 mg) by mouth Daily Nurse Note: OB Intake: Patient presents today for first OB visit. Patients history has been reviewed in great detail including any potential risks. Patient signed consent forms and patient desires testing in both trimesters. Patient currently has no complaints and has been advised to drink 6-8 glasses of water a day, eat no raw or undercooked meat, and stay away from [facility]. Patient has also been advised to not change litter boxes and eat 6 small meals a day. Patient has been consulted regarding the do's and don'ts of . Patient was given labs and all questions and concerns were answered. Follow Up: Patient is to return in 4 weeks for routine OB appointment. Follow Up: Patient is to have labs drawn at directed and return to office for initial OB appointment with provider. Patient may call office as needed with any concerns or questions. Nurse Visit Completed by: Veronica Klein LPN documented in this encounter [facility] 12-17-[address] Montiel, Patient called stating she took a urine test this past Friday and it was positive. She receives Inflectra 400 mg every 6 weeks for her Crohn's. She also takes Imuran 150 mg po daily. [employer] is inquiring if she can continue taking [...] send a letter to the family doctor/PCP, Sports Director, and embedded software manager advising against the use of live vaccines for the 1st 6 months of the baby's life and to monitor the baby closely for any signs of infection. Please send her the following as well: [email or web address] I recommend an OV w me in 02/2024 or 03/2024 Please disregard notes below. Summary These recommendations are in accordance with the findings of the ongoing PIANO study, The [place] Consensus Statements for the Management of Inflammatory Bowel Disease in , and the clinical care pathway released by the AGA. - Johnathan Farr, Yady BROWN, Lobito CD. Drug Safety and Risk of Adverse Outcomes for Patients With Inflammatory Bowel Disease. Gastroenterology. 2017;152(2):451-462.e2. - Gastroenterology. 2016 Mar;150[3]:734-57 - Johnathan Farr, Rey Johnson, Ama N, et al. Inflammatory bowel disease in clinical care pathway: a report from the syrian gastroenterological association [facility] project working group. Gastroenterology. 2019;156(5):3907-0442. Spoke with patient regarding recommendations, sent via Weft. Will call patient back when March schedule is out, she needs Mondays. documented in this encounter [facility] 12-17-[address] Montiel, Patient called stating she took a urine test this past Friday and it was positive. She receives Inflectra 400 mg every 6 weeks for her Crohn's. She also takes Imuran 150 mg po daily. Ilesha is inquiring if she can continue taking her Imuran and Inflectra infusions? Please advise, [facility] you [facility]23 Telephone encounter Note Please let her [...] send a letter to the family doctor/PCP, Sports Director, and embedded software manager advising against the use of live vaccines for the 1st 6 months of the baby's life and to monitor the baby closely for any signs of infection. Please send her the following as well: [email or web address] I recommend an OV w me in 02/2024 or 03/2024 Please disregard notes below. Summary These recommendations are in accordance with the findings of the ongoing PIANO study, The [employer] Consensus Statements for the Management of Inflammatory Bowel Disease in , and the clinical care pathway released by the AGA. - Johnathan Farr, Yady BROWN, Lobito CD. Drug Safety and Risk of Adverse Outcomes for Patients With Inflammatory Bowel Disease. Gastroenterology. 2017;152(2):451-462.e2. - Gastroenterology. 2016 Mar;150[3]:734-57 - Johnathan U, Rey C, Ama N, et al. Inflammatory bowel disease in clinical care pathway: a report from the syrian gastroenterological association [facility] project working group. Gastroenterology. 2019;156(5):8695-7654. [facility] 12-17-2023 Telephone encounter Note Spoke with patient regarding recommendations, sent via Weft. Will call patient back when March schedule is out, she needs Mondays. [facility] 12-12-2023 History of Present illness Narrative Infusion start time: 10:50 am Patient here for Inflectra infusion. Patient denies any recent infections or on antibiotics, open wounds, recent/future surgery, vaccinations or insurance changes. 10:30 am IV started with 22g needle to right hand by JAD Arroyo x1 attempt. Patient tolerated well. Inflectra x 4 vials Lot# [id number] Exp- 04/09/2028 Time out performed prior to medication administration. Name, , medication(s) verified 11:50 am patient infusion complete. IV flushed with 10 ml normal saline. IV discontinued, catheter intact, vitals WNL. Patient tolerated infusion well documented in this encounter [facility]-01[facility]2023 History of Present illness Narrative Images from the original note were not included. [facility] [address] [place] [phone] 12/01/2023 Chief Complaint Patient presents with [...] small and large intestine with intestinal obstruction ([facility]-HCC) Other Visit Diagnoses Iron deficiency - Primary [...] Referring and communicating with other health career technology teacher (not separately reported) Documenting clinical information in the electronic or other health record Independently interpreting results (not separately reported) and communicating results to the patient/family/caregiver Care coordination (not separately reported) ---- Please note that portions of this note may have been generated using voice recognition [employer] dictation software. Although every effort was made to ensure the accuracy of any automated transcriptions, some errors may have occurred. TERA Leyva 12/01/23 1502 documented in this encounter [facility] 12-01-2023 Instructions TERA Leyva - 12/01/2023 2:30 PM EDT Pending labs If iron is low, will order Injectafer IV If iron is low, will repeat labs in 3 months CBC-d iron panel ferritin If iron is normal, just follow up yearly as below Follow up yearly with labs same as above documented in this encounter [facility] 04-21-2023 Miscellaneous Notes Due for OV There [...] at 10:30 am documented in this encounter [facility] 04-21-2023 Telephone encounter Note Due for OV [facility] 04-21-2023 Telephone encounter Note There is nothing available for a recheck OV , can we use a new patient slot? [facility] 04-21-2023 Telephone encounter Note Yes that's ok [facility] 04-21-2023 Telephone encounter Note Left message for patient to call and schedule. [facility] 04-21-2023 Telephone encounter Note Message left for patient to call back. [facility] 04-21-2023 Telephone encounter Note Patient is scheduled with Meaghan on June 16 at 11:15 am. Infusion is scheduled on June 09 at 10:30 am [facility] 04-21-2023 History of Present illness Narrative 1020 am Patient here for Inflectra infusion. Patient denies any recent infections, open wounds, recent/future surgery, or insurance changes . IV started with 22g needle to right hand by raf street x 1 attempt. Patient tolerated well. Inflectra x 4 vials Lot #[id number] Exp date 12/11/2027 Time out performed with Raf Delatorre RN. 400 mg of Inflectra to be mixed and administered to patient per current treatment plan orders. 1305 patient infusion complete. IV discontinued, catheter intact, vitals WNL. Patient tolerated infusion well documented in this encounter [facility] 04-14-2023 Miscellaneous Notes Patient missed the visit. RN called patient and RN rescheduled patient for 04/21/2023. documented in this encounter [facility] 04-14-2023 Telephone encounter Note Patient missed the visit. RN called patient and RN rescheduled patient for 04/21/2023. [facility] 03-31-2023 Miscellaneous Notes RN was told that patient is calling regarding her insurance. The phone call was then transferred back to the infusion room. Patient states she lost her secondary insurance and wanted to know to what the amount she will be responsible for. RN informed patient to call her insurance company to find out that information. documented in this encounter [facility] 03-31-2023 Telephone encounter Note RN was told that patient is calling regarding her insurance. The phone call was then transferred back to the infusion room. Patient states she lost her secondary insurance and wanted to know to what the amount she will be responsible for. RN informed patient to call her insurance company to find out that information. [facility] 02-20-2023 History of Present illness Narrative Images from the original note were not included. [address] [place] [phone] Patient: Juan Luis Storey Date of : [...] total) by mouth in the morning. LYNDSEY ANDERS MD Family Medicine Physician [facility] / [facility] 02/20/23 This note was completed with voice recognition software. The document was reviewed for errors however some may still be present. Please do not hesitate to contact/[facility] the author to verify any questions/concerns. documented in this encounter [facility] 02-06-2023 History of Present illness Narrative Patient [...] in stable condition. documented in this encounter [facility] Evaluation note Diagnosis 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 deficiency anemia, unspecified Iron malabsorption Other specified intestinal malabsorption [facility] Diagnosis Reactive airway disease with acute exacerbation, unspecified asthma severity, unspecified whether persistent- Primary Shortness of breath COVID-19 Sinusitis, unspecified chronicity, unspecified location [facility] Diagnosis Crohn's disease of both small and large intestine with intestinal obstruction (CMS-HCC)- Primary [facility] Diagnosis Iron deficiency- Primary Disorders [...] deficiency anemia, unspecified [facility] Diagnosis Crohn's disease of both small and large intestine with intestinal obstruction (CMS-HCC)- Primary [facility] Diagnosis 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 Other specified intestinal malabsorption Iron deficiency anemia, unspecified [facility] Diagnosis Missed menses , unspecified gestational age Encounter for supervision of normal first in first trimester headache in first trimester documented in this encounter [facility]* Diagnosis Therapeutic drug monitoring- Primary Encounter for therapeutic drug monitoring [facility] Diagnosis Second trimester state, incidental 15 weeks gestation of H/O oligohydramnios in prior , currently documented in this encounter [facility]* Diagnosis Crohn's disease of both small and large intestine with intestinal obstruction (CMS-HCC)- Primary [facility] [...] on filedocumented in this encounter [facility] Summary Purpose Family History No Family History Records FoundNo Family History Records FoundNo Family History Records FoundNo Family History Records FoundNo Family History Records FoundNo Family History Records Found Advance Directives No Advanced Directives Records FoundLatest Code Status on File Code Status Date [...] section and content) DATE CREATED AUTHOR 08/05/2017 [facility] [facility] DATE CREATED AUTHOR AUTHOR'S ORGANIZ ATION 06/26/[address] [facility] DATE CREATED AUTHOR AUTHOR'S ORGANIZ ATION 09/19/2023 [facility] DATE CREATED AUTHOR AUTHOR'S ORGANIZ ATION 02/03/2024 [facility] DATE CREATED AUTHOR AUTHOR'S ORGANIZ ATION 02/24/2024 [facility] EPIC DATE CREATED AUTHOR AUTHOR'S ORGANIZ ATION 03/09/2024 [facility] Reason for Visit (unrecogniz ed section and content) Reason Comments Outpatient Infusion Injectafer Specialty Diagnoses / Procedures Referred By Carroll juan Referred To Contact Diagnoses Iron deficiency anemia due to chronic blood loss Iron deficiency anemia, unspecified Iron malabsorption Procedures MI INJ FERRIC CARBOXYMALTOS 1MG Mj Pizarro MD [address] [place] [address] Pfo Med Onc [address] [place] [address] Referral ID Status Reason Start Date Expiration Date V isits Requested Visits Authorized [id number] Authorized 01/24/2023 07/23/2023 2 2 Reason Comments Asthma Reason Comments Outpatient Infusion Inflectra Specialty Diagnoses / Procedures Referred By Carroll juan Referred To Contact Gastroenterology Diagnoses Crohn's disease of both small and large intestine with intestinal obstruction Procedures MI INFLIXIMAB INJECTION Referral ID Status Reason Start Date Expiration Date V isits Requested Visits Authorized [id number] Authorized 04/01/2023 04/01/2024 9 9 Reason Comments Follow-up Specialty Diagnoses / Procedures Referred By Carroll juan Referred To Contact Gastroenterology Diagnoses Crohn's disease of both small and large intestine with intestinal obstruction Procedures MI INFLIXIMAB INJECTION Reason Comments Amenorrhea Reason Comments Routine Visit Reason Comments Outpatient Infusion Crohn's Disease Avsola Specialty Diagnoses / Procedures Referred By Carroll juan Referred To Contact Gastroenterology Diagnoses Crohn's disease of both small and large intestine with intestinal obstruction Asola 5mg/kg (400mg) every 6 weeks/ Auth'd 01.20.24 - 01.18.25/ visits/ [id number] Dr. Montiel NO ACCELERATED INFUSION Procedures INJECTION, INFLIXIMAB-AXXQ, BIOSIMILAR, (AVSOLA), 10 MG INFUSION Hilary Aviles, 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UMBER HELPER [address], [place] [address] Phone: tel: fax: [facility] [address] [address] Phone: tel: fax: Referral ID Status Reason Start Date Expiration Date V isits Requested Visits Authorized [id number] Authorized 01/20/2024 01/18/2025 9 9 Care Teams (unrecognized sec tion and content) Knife Grinder Relationship Specialty Start Date End Date [facility] [address], [place] [address] PCP - General Family Medicine 12/26/22 Knife Grinder Relationship Specialty Start Date End Date Hilary [facility] [address], [place] [address] PCP - General Family Medicine 12/26/22 Knife Grinder Relationship Specialty Start Date End Date Hil[facility] [address], [place] [address] PCP - General Family Medicine 12/26/22 Knife Grinder Relationship Specialty Start Date End Date Hilary [facility]iles [facility] [address], [place] [address] PCP - General Family Medicine 12/26/22 Knife Grinder Relationship Specialty Start Date End Date Hilary [facility]iles [facility] [address], [place] [address] PCP - General Family Medicine 12/26/22 Knife Grinder Relationship Specialty Start Date End Date Hilary [facility]iles [facility] [address], [place] [address] PCP - General Family Medicine 12/26/22 Knife Grinder Relationship Specialty Start Date End Date Hil[facility]iles [facility] [address], [place] [address] PCP - General Family Medicine 12/26/22 Knife Grinder Relationship Specialty Start Date End Date Hilary [facility]iles [facility] [address], [place] [address] PCP - General Family Medicine 12/26/22 Knife Grinder Relationship Specialty Start Date End Date Hil[facility]iles [facility] [address], [place] [address] PCP - General Family Medicine 01/03/24 Knife Grinder Relationship Specialty Start Date End Date Hilary Aviles [facility] SU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 [address], [place] [address] PCP - General Family Medicine 01/03/24 Knife Grinder Relationship Specialty Start Date End Date Hilary Aviles MD [address] [place] [address] Referring Physician Nurse Practitioner 10/08/22 Knife Grinder Relationship Specialty Start Date End Date Hialry Aviles [employer]OLEN SU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 [address], [place] [address] PCP - General Family Medicine 01/03/24 Knife Grinder Relationship Specialty Start Date End Date Hilary Aviles MD [address] [place] [address] Referring Physician Nurse Practitioner 10/08/22 Knife Grinder Relationship Specialty Start Date End Date Hilary Aviles MD [address] [place] [address] Referring Physician Nurse Practitioner 10/08/22 Knife Grinder Relationship Specialty Start Date End Date Hilary Aviles MD [address] [place] [address] Referring Physician Nurse Practitioner 10/08/22 Knife Grinder Relationship Specialty Start Date End Date Hilary Aviles APRN-LUIGI [address], [facility] [place] [address] PCP - General Family Medicine 01/03/24 FOR RECORDS PERTAINING TO PATIENTS WHO [...] BE BASED ON THE PRIMARY CLINICAL RECORDS. [facility] [email or web address] provides no warranty or guarantee of the accuracy or completeness of information in this document.
== END 2024-03-11 10:09 | disposition home or self-care (01) ==
LOC: US 10:08
PROVIDERS: PCP Nurse Practitioner; Visit Provider Obstetrics & Gynecology
DX: O09.292 Supervision of pregnancy with other poor reproductive or obstetric history, second trimester (principal); Z3A.18 18 weeks gestation of pregnancy
CPT/HCPCS: 76817

== ENCOUNTER 2024-03-24 10:38 | Outpatient (OUT) | payer OTHER, SELFPAY ==
--- NOTE | 2024-03-24 10:44 | US_ITS ---
[address] [address] Patient Name: BINTA TANNER MRN: [id number] date: 1990 Sex: F Assigned Patient Location: US Current Patient Location: US Accession/Order Number: [id number] Exam Date: 03/24/2024 10:45 Report Date: 03/24/2024 11:36 At the request of: CHAPINCITO DOMINGO Procedure: US OB anatomy EXAMINATION: US OB anatomy, US OB cervical length HISTORY: Screening Anatomic Survey COMPARISON: No relevant comparison available. TECHNIQUE: Transabdominal sonographic examination was performed for obstetrical and evaluation. FINDINGS: Number: 1 Heart Rate: 151.69 bpm H.B. /min Amniotic Fluid Volume: Subjectively normal Placental Location: Posterior, grade 0. The placental edge is 4.9 cm from the internal cervical os Cervix Length: 4.60 cm , closed position: Cephalic presentation Normal anatomy: Lateral ventricles, cerebellum, posterior fossa, nose, lips, orbits, four-chamber heart, RVOT, LVOT, diaphragm, kidneys, abdominal cord insertion, bladder, umbilical arteries, three-vessel cord, spine, extremities Not visualized: stomach BIOMETRY: BPD: 4.44 cm; 19 weeks 3 days; 26.10 % HC: 16.24 cm; 19 weeks 0 days; 7.40 % AC: 15.06 cm; 20 weeks 2 days; 54.60 % FL: 3.13 cm; 19 weeks 5 days; 31.70 % EFW:320.16 g; 39.90 % FL/AC: 20.76 FL/BPD: 70.44 HC/AC: 1.08 GESTATIONAL AGE: Age by EDC: 20 weeks 0 days ALEJANDRA by EDC: 2024-08-11 Age by current US: 19 weeks 4 days ALEJANDRA by current US: 2024-08-14 US/US OB anatomy IMPRESSION: Nonvisualization of the stomach, otherwise normal anatomy scan. *Reference: [employer] Practice Guideline for the performance of Obstetric Ultrasound Examinations, November 10, 2006. Electronically authenticated by: SESAR REYNOLDS Date: 03/24/2024 11:36
--- NOTE | 2024-03-24 10:44 | US_ITS ---
[address] [address] Patient Name: BINTA TANNER MRN: [id number] date: 1990 Sex: F Assigned Patient Location: US Current Patient Location: US Accession/Order Number: [id number] Exam Date: 03/24/2024 10:45 Report Date: 03/24/2024 11:36 At the request of: CHAPINCITO DOMINGO Procedure: US OB cervical length EXAMINATION: US OB anatomy, US OB cervical length HISTORY: Screening Anatomic Survey COMPARISON: No relevant comparison available. TECHNIQUE: Transabdominal sonographic examination was performed for obstetrical and evaluation. FINDINGS: Number: 1 Heart Rate: 151.69 bpm H.B. /min Amniotic Fluid Volume: Subjectively normal Placental Location: Posterior, grade 0. The placental edge is 4.9 cm from the internal cervical os Cervix Length: 4.60 cm , closed position: Cephalic presentation Normal anatomy: Lateral ventricles, cerebellum, posterior fossa, nose, lips, orbits, four-chamber heart, RVOT, LVOT, diaphragm, kidneys, abdominal cord insertion, bladder, umbilical arteries, three-vessel cord, spine, extremities Not visualized: stomach BIOMETRY: BPD: 4.44 cm; 19 weeks 3 days; 26.10 % HC: 16.24 cm; 19 weeks 0 days; 7.40 % AC: 15.06 cm; 20 weeks 2 days; 54.60 % FL: 3.13 cm; 19 weeks 5 days; 31.70 % EFW:320.16 g; 39.90 % FL/AC: 20.76 FL/BPD: 70.44 HC/AC: 1.08 GESTATIONAL AGE: Age by EDC: 20 weeks 0 days ALEJANDRA by EDC: 2024-08-11 Age by current US: 19 weeks 4 days ALEJANDRA by current US: 2024-08-14 US/US OB cervical length IMPRESSION: Nonvisualization of the stomach, otherwise normal anatomy scan. *Reference: [employer] Practice Guideline for the performance of Obstetric Ultrasound Examinations, November 10, 2006. Electronically authenticated by: SESAR REYNOLDS Date: 03/24/2024 11:36
--- OUTSIDE RECORDS SUMMARY | 2024-03-24 10:51 | XMS_ITS | CCD ---
Author Organization [facility] Care Team Providers Care Fishing Guide Name Role Phone ADAMOWICZ, SAMARA J Unavailable Unavailable ADAMOWICZ, SAMARA J Unavailable Unavailable ADAMOWICZ, SAMARA J Unavailable Unavailable ADAMOWICZ, SAMARA J Unavailable Unavailable ADAMOWICZ, SAMARA J Unavailable Unavailable ADAMOWICZ, SAMARA J Unavailable Unavailable ADAMOWICZ, SAMARA J Unavailable Unavailable ADAMOWICZ, SAMARA J Unavailable Unavailable SEBASTIAN HERRING Attending Unavailable SEBASTIAN HERRING Consulting Unavailable SEBASTIAN HERRING Admitting Unavailable [facility] Primary Care Unavailable Traci REGIONAL DIRECTOR OF ADMISSIONS-ENGRAVER JEWELRY, Hilary A Primary Care Provi lazarus HILARY AVILES Attending Unavailable TRACI, HILARY A Referring Unavailable TRACI, HILARY A Primary Care Unavailable TRACI, HILARY A Attending Unavailable RTACI, HILARY A Referring Unavailable TRACI, HILARY A Primary Care Unavailable TRACI HILARY A Attending Unavailable TRACI, HILARY A Referring Unavailable TRACI, HILARY A Primary Care Unavailable LYNDSEY ANDERS Attending Unavailable TRACI, HILARY A Referring Unavailable TRACI, HILARY A Primary Care Unavailable Traci REGIONAL DIRECTOR OF ADMISSIONS-ENGRAVER JEWELRY, Hilary A Primary Care Provi lazarus Hilary Aviles MD Unavailable MJ PIZARRO Referring Unavailable TRACI, HILARY A Primary Care Unavailable MJ PIZARRO Referring Unavailable TRACI, HILARY A Primary Care Unavailable LYNDSEY ANDERS Attending Unavailable LYNDSEY ANDERS Referring Unavailable TRACI HILARY A Primary Care Unavailable DOMINIQUE MOYA Attending Unavailable TRACI, HILARY A Referring Unavailable TRACI, HILARY A Primary Care Unavailable TRACI, HILARY A Primary Care Unavailable RAULITO SIDDIQUI Attending Unavailab le TRACI, HILARY A Primary Care Unavailable SESAR PRICE Attending Unavailable TRACI, HILARY A Referring Unavailable TRACI, HILARY A Primary Care Unavailable TRACI, HILARY A Referring Unavailable TRACI, HILARY A Primary Care Unavailable TRACI, HILARY A Referring Unavailable TRACI, HILARY A Primary Care Unavailable TRACI, HILARY A Referring Unavailable TRACI, HIALRY A Primary Care Unavailable TRACI, HILARY A Referring Unavailable RTACI, HILARY A Primary Care Unavailable SHARDA MONTIEL Attending Unavailable TRACI, HILARY A Referring Unavailable TRACI, HILARY A Primary Care Unavailable TRACI, HILARY A Referring Unavailable TRACI, HILARY A Primary Care Unavailable SHARDA MONTIEL Referring Unavailable TRACI, HILARY A Primary Care Unavailable TRACI, HILARY A Referring Unavailable TRACI, HILARY A Primary Care Unavailable TRACI, HILARY A Referring Unavailable TRACI, HILARY A Primary Care Unavailable YAQUELIN HORNE Attending Unavailable YAQUELIN HORNE Attending Unavailable PARISH VALDEZ Attending Unavailable Allergies Allergy Classification Reported Allergen(s) Allergy Type Date of Onset Reaction(s) Facility (20 sources) Sertraline; Translations: [SERTRALINE] Drug Allergy 11-09-2018 [facility] Medications Current Medications Medication Drug Class(es) Dates Sig (Normalized) Sig (Original) [id number] 200 actuat albuterol 0.09 mg/actuat metered dose inhaler (14 sources) beta2-Adrenergic Agonist Start: 11-26-2021 End: 02-20-2023 [...] wheezing or shortness of breath. 18 g 02/20/2023 Active ascorbic acid 250 mg oral tablet (10 sources) Vitamin C Start: 05-08-2022 take 1 tablet by mouth in the morning ascorbic acid, vitamin C, (vitamin C) 250 mg tablet Take 1 tablet (250 mg total) by mouth in the morning. Take with iron.. 90 tablet 3 05/08/2022 Active azaTHIOprine 50 mg oral tablet (20 sources) Purine Antimetabolite Start: 09-07-2021 take 3 tablets by mouth in the morning azaTHIOprine (Imuran) 50 MG tablet TAKE 3 TABLETS BY MOUTH IN THE MORNING 05/06/2022 Active benzonatate 100 mg oral capsule (10 sources) Non-narcotic Antitussive Start: 11-26-2021 take 1 capsule by mouth every eight hours benzonatate (TESSALON PERLES) 100 mg capsule Take 1 capsule (100 mg total) by mouth every 8 (eight) hours. 21 capsule 11/26/2021 Active cholecalciferol 1.25 mg oral capsule (20 sources) Vitamin D Start: 01-27-2024 take 1 [...] of major depressive disorder without prior episode ([facility]) Take 1.5 tablets (30 mg total) by mouth in the morning. 30 tablet 2 09/17/2023 Active 1 ml EPINEPHrine 1 mg/ml injection (1 source) alpha-Adrenergic Agonist, beta-Adrenergic Agonist, Catecholamine Start: 02-06-2023 End: 02-07-2023 EPINEPHrine (ADRENALIN) 1 mg/mL injection FOR ANAPHYLAXIS 0.3 mg folic acid 1 mg oral tablet (20 sources) Start: 08-02-2021 End: 02-20-2023 take 1 tablet by mouth in the morning folic acid (FOLVITE) 1 mg tablet Take 1 tablet (1 mg total) by mouth in the morning. 90 tablet 2 02/20/2023 Active folic acid 0.4 mg / vitamin b12 1 mg sublingual tablet (16 sources) Vitamin B12 Cobalamin Combinations (B-12) 100-5000 MCG sublingual tablet B12 Active cyanocobalamin/f olic acid (vitamin M52-rtkjk acid) 1,000-400 mcg lozenge B12 Active 12 hr guaiFENesin 600 mg extended [...] days. 14 tablet 0 02/20/2023 02/27/2023 Active inFLIXimab-dyyb 100 mg injection (20 sources) Tumor Necrosis Factor Muriel inFLIXimab-dyyb (Inflectra) 100 MG injection Infuse 5 mg/kg into a venous catheter Active inFLIXimab (KRYSTAL PEPITO) 10 mg/mL injection Infuse 5 mg/kg into a venous catheter See Admin Instructions. Every 6 weeks Active inFLIXimab-dyyb (INFLECTRA) 100 mg injection Indications: Crohn's disease Infuse 5 mg/kg into a venous catheter once Indications: Crohn's disease. Every 6 weeks Active inFLIXimab-axxq (AVSOLA) 100 mg injection Infuse 5 mg/kg into a venous catheter every 6 (six) weeks. Active magnesium oxide 400 mg oral tablet [...] Active vitamin b12 1 mg oral tablet (11 sources) Vitamin B12 Start: 05-29-19 21 End: 02-20-19 24 take 2 tablets by mouth in the morning vitamin B-12 1000 MCG tablet Take 2 tablets (2,000 mcg total) by mouth in the morning. 90 tablet 2 02/20/2023 Active WESTAB PLUS 27 mg iron- 1 mg tablet (10 sources) Start: 06-08-19 23 WESTAB PLUS 27 mg iron- 1 mg tablet 06/07/2022 Active Start: 06-07-2022 WESTAB PLUS 27 mg iron- [...] sodium chloride 0.9 % 250 mL IVPB (2 sources) Start: 04-21-2023 End: 04-21-2023 inFLIXimab-dyyb (INFLECTRA) 400 mg in sodium chloride 0.9 % 250 mL IVPB Start: 02-17-2023 End: 02-17-2023 inFLIXimab-dyyb (INFLECTRA) 400 mg in sodium chloride [...] complete. Adjust rates respectively for other volumes. Look-alike/sound-alike medication - verify indication for use. Administer using 0.2 - 1.2 micron filter. 1000 ml sodium chloride 9 mg/ml injection (5 sources) Start: 03-08-2024 End: 03-08-2024 take 25 mL intravenously every hour as needed 25 mL/hr, intravenous, Continuous PRN, When mainline IV needed., Starting on Fri03/08/24 at 1018, Match IVF to base solution of product being administered to ensure compatibility. Start: 04-21-2023 End: 04-21-2023 sodium chloride 0.9 % infusi on Start: 02-17-2023 End: 02-17-2023 sodium chloride 0.9 % infusi on Start: 02-06-2023 End: 02-07-2023 sodium chloride 0.9 % bolus Problems Active Problems Problem Classification Problem Date Documented Da te Episodic/Chronic Anxiety disorders (20 sources) Anxiety; Translations: [Anxiety disorder, unspecified] Onset: 12-14-2018 12-14-2018 Chronic Asthma (4 sources) Unspecified asthma with (acute) exacerbation; Translations: [Asthma] Onset: 02-20-2023 02-20-2023 Chronic Deficiency and other anemia (20 sources) Iron deficiency anemia due to blood loss; Translations: [Iron deficiency anemia secondary to blood loss (chronic)] Onset: 07-17-2018 07-17-2018 Chronic Deficiency and other anemia (2 sources) [...] 01-31-2024 Immunizations and screening for infectious disease (3 sources) Encounter for screening for human papillomavirus (HPV); Translations: [Exposure to sexually transmissible disorder] Onset: 05-04-2022 03-17-2024 Episodic Malaise and fatigue (1 source) Fatigue; [...] Translations: [Cramp and spasm] 12-01-2023 Episodic Other female genital disorders (2 sources) Vaginal discharge; Translations: [Other specified noninflammatory disorders of vagina] 03-17-2024 Episodic Other gastrointestinal disorders (20 sources) Malabsorption - iron; Translations: [Intestinal malabsorption, unspecified] Onset: 08-28-2020 08-28-2020 Chronic Other gastrointestinal disorders (1 source) Intestinal malabsorption, unspecified; Translations: [Intestinal malabsorption, unspecified] Onset: 08-28-2020 Chronic Other gastrointestinal disorders (1 source) Constipation, unspecified; Translations: [Constipation, unspecified] Onset: 01-03-2024 Episodic Other gastrointestinal disorders (1 source) Constipation Onset: 01-03-2024 Episodic Other inflammatory condition of skin (18 sources) Scalp psoriasis; 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, unspecified] Onset: 12-14-2018 12-14-2018 Chronic Other and delivery including normal (6 sources) ; Translations: [Encounter for supervision of normal , unspecified, unspecified trimester] 01-23-2024 Episodic Other screening for suspected conditions (not mental disorders or infectious disease) (6 sources) Encounter for screening for malignant neoplasm of cervix; Translations: [Patient encounter status] Onset: 04-30-2022 Episodic Other upper respiratory infections (2 sources) Chronic sinusitis, unspecified; Translations: [Sinusitis] Onset: 02-20-2023 02-20-2023 Chronic Regional enteritis and [...] [15 weeks gestation of ] 02-18-2024 Episodic Residual codes; unclassified (2 sources) Gestation period, 19 weeks; Translations: [19 weeks gestation of ] 03-17-2024 Episodic Unclassified (1 source) FMLA Onset: 09-03-2023 Unclassified (1 source) Constipation, Early Onset: 01-03-2024 Unclassified (2 sources) Outpatient Infusion Onset: 02-06-2023 Viral infection (1 source) COVID-19; Translations: [COVID-19] Onset: 01-22-2021 Past or Other Problems Problem Classification Problem Date Documented Da te Episodic/Chronic Deficiency and other anemia (18 sources) Microcytic anemia; Translations: [Iron deficiency anemia, unspecified] Onset: 07-17-2018 07-17-2018 Episodic Deficiency and other anemia (18 sources) Anemia; Translations: [Anemia, unspecified] Onset: 07-02-2019 07-02-2019 Episodic Deficiency and other anemia (20 sources) Iron deficiency anemia; Translations: [Iron deficiency anemia, unspecified] Onset: 08-28-2020 08-28-2020 Episodic Deficiency and other anemia (2 sources) Iron deficiency anemia, unspecified; Translations: [Iron deficiency anemia, unspecified] Onset: 08-28-2020 Episodic Intestinal obstruction without hernia (20 sources) Intestinal obstruction; Translations: [Unspecified intestinal obstruction, unspecified as to partial versus complete obstruction] Onset: 10-17-2017 Resolved: 08-29-2020 08-29-2020 Episodic Mood disorders (18 sources) Mood disorders Onset: 11-23-2020 Resolved: 09-17-2023 11-23-2020 Nutritional deficiencies (19 sources) Cobalamin deficiency; Translations: [Deficiency of other specified B group vitamins] Onset: 07-08-2019 07-08-2019 Episodic Other bone disease and musculoskeletal deformities (18 sources) Bone cyst of foot; Translations: [Other cyst of bone, unspecified ankle and foot] Onset: 11-11-2022 11-11-2022 Episodic Other complications of (18 sources) Anemia; Translations: [Anemia complicating , unspecified trimester] Onset: 05-15-2017 Resolved: 04-21-2018 04-21-2018 Chronic Other complications of (18 sources) History of fourth degree perineal laceration; Translations: [Supervision of with other poor reproductive or obstetric history, unspecified trimester] Onset: 06-21-2017 Resolved: 08-29-2020 08-29-2020 Episodic Other complications of (18 sources) History of gynecological disorder; Translations: [Supervision of with other poor reproductive or obstetric history, unspecified trimester] Onset: 06-21-2017 Resolved: 08-29-2020 08-29-2020 Episodic Other connective tissue disease (18 sources) Pain in both feet; Translations: [Pain in right foot] Onset: 12-14-2018 12-14-2018 Episodic Other connective tissue disease (18 sources) Chronic pain of right foot; Translations: [Pain in right foot] Onset: 09-18-2022 09-18-2022 Episodic Other disorders of stomach and duodenum (18 sources) Internal duodenal fistula; 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] Onset: 06-04-2018 Resolved: 05-08-2022 05-08-2022 Episodic Other gastrointestinal disorders (18 sources) Diarrhea; Translations: [Diarrhea, unspecified] Onset: 10-17-2017 Resolved: 05-08-2022 05-08-2022 Episodic Other lower respiratory disease (18 sources) Cough; Translations: [Cough] Onset: 12-20-2019 Resolved: 09-27-2020 09-27-2020 Episodic Other lower respiratory disease (19 sources) Dyspnea; Translations: [Shortness of breath] Onset: 01-22-2021 Resolved: 05-08-2022 05-08-2022 Episodic Other lower respiratory disease (1 source) Shortness of breath; Translations: [Shortness of breath] Onset: 02-20-2023 Episodic Other non-traumatic joint disorders (18 sources) Pain in left knee; Translations: [Pain in joint, lower leg] Onset: 12-23-2018 12-23-2018 Episodic Other upper respiratory disease (18 sources) Congestion of nasal sinus; Translations: [Nasal congestion] Onset: 12-21-2020 12-21-2020 Episodic Other upper respiratory infections (18 sources) Sore throat symptom; Translations: [Acute pharyngitis, unspecified] Onset: 12-20-2019 Resolved: 05-08-2022 05-08-2022 Episodic Residual codes; unclassified (18 sources) Difficulty sleeping ; Translations: [Sleep disorder, unspecified] Onset: 01-13-2019 01-13-2019 Episodic Viral infection (19 sources) Disease caused by 2019-nCoV; Translations: [COVID-19] Onset: 01-22-2021 01-22-2021 Episodic Results Test Name Value Interpretation Reference Range Facility RECURRENT VAGINITIS (HTRX)on 03-18-2024 ATOPOBIUM VAGINAE 0 [facility] ATOPOBIUM VAGINAE Not detected [facility] BVAB 2,3 (BACTERIAL VAGINOSIS ASSOCIATED BACTERIA 2, 3); MOBILUNCUS SPP 0 [facility] BVAB 2,3 (BACTERIAL VAGINOSIS ASSOCIATED BACTERIA 2, 3); MOBILUNCUS SPP Not detected [facility] WARD ALBICANS, PARAPSILOSIS, TROPICALIS 0 [facility] WARD ALBICANS, PARAPSILOSIS, TROPICALIS Not detected [facility] WARD GLABRATA 0 [facility] WARD GLABRATA Not detected [facility] WARD KRUSEI 0 [facility] WARD KRUSEI Not detected [facility] CHLAMYDIA TRACHOMATIS 0 [facility] CHLAMYDIA TRACHOMATIS Not detected [facility] GARDNERELLA VAGINALIS 0 [facility] GARDNERELLA VAGINALIS Not detected [facility] MEGASPHAERA (TYPES 1, 2) 0 [facility] MEGASPHAERA (TYPES 1, 2) Not detected [facility] MYCOPLASMA GENITALIUM 0 [facility] MYCOPLASMA GENITALIUM Not detected [facility] NEISSERIA GONORRHOEAE 0 [facility] NEISSERIA GONORRHOEAE Not detected [facility] TRICHOMONAS VAGINALIS 0 [facility] TRICHOMONAS VAGINALIS Not detected [facility] US OB CERVICAL LENGTHon 02-12 [place] [address] Ultrasound Report Signed Patient: JUAN LUIS STOREY MR#: [id number] : 1990 Acct:[id number] Age/Sex: 33 / F ADM Date: 03/11/24 Loc: US Attending Dr: Parish Valdez D.O. Ordering Physician: Parish Valdez D.O. Date of Service: 03/11/24 Procedure(s): US OB cervical length Accession Number(s): [id number] cc: Parish Valdez D.O.; Hilary Aviles NP [place] [address] Patient Name: JUAN LUIS STOREY MRN: [facility]:[id number] date: 1990 Sex: F Assigned Patient Location: US Current Patient Location: US Accession/Order Number: [id number] Exam Date: 03/11/2024 10:15 Report Date: 03/11/2024 10:53 At the request of: PARISH VALDEZ Procedure: US OB cervical length EXAMINATION: US OB cervical length HISTORY: History Prior With Short Cervix COMPARISON: Ultrasound OB transvaginal 01/23/2024 TECHNIQUE: Transabdominal and transvaginal sonographic examination for cervical length. FINDINGS: CERVIX LENGTH: 4.6 cm; closed. POSITION: Breech HEART RATE: 153 bpm Age by EDC: 18 weeks 1 day ALEJANDRA by EDC: 08/11/2024 US/US OB cervical length IMPRESSION: 1. Single live intrauterine . 2. Closed cervix 4.6 cm in length. Electronically authenticated by: LUIS VALERA Date: 03/11/2024 10:53 Dictated By: Luis Valera M.D. Signed By: 03/11/24 1056 DD/ 1053 TD/TT: Six Pack Loader Operator: [facility] Radiology, Radiologi MD perla - 03/11/2024 [place] [address] Ultrasound Report Signed Patient: JUAN LUIS STOREY MR#: [id number] : 1990 Acct:[id number] Age/Sex: 33 / F ADM Date: 03/11/24 Loc: US Attending Dr: Parish Valdez D.O. Ordering Physician: Parish Valdez D.O. Date of Service: 03/11/24 Procedure(s): US OB cervical length Accession Number(s): [id number] cc: Parish Valdez D.O.; Hilary Aviles NP [facility] [place] [address] Patient Name: JUAN LUIS STOREY MRN: [id number] date: 1990 Sex: F Assigned Patient Location: US Current Patient Location: US Accession/Order Number: [id number] Exam Date: 03/11/2024 10:15 Report Date: 03/11/2024 10:53 At the request of: PARISH VALDEZ Procedure: US OB cervical length EXAMINATION: US OB cervical length HISTORY: History Prior With Short Cervix COMPARISON: Ultrasound OB transvaginal 01/23/2024 TECHNIQUE: Transabdominal and transvaginal sonographic examination for cervical length. FINDINGS: CERVIX LENGTH: 4.6 cm; closed. POSITION: Breech HEART RATE: 153 bpm Age by EDC: 18 weeks 1 day ALEJANDRA by EDC: 08/11/2024 US/US OB cervical length IMPRESSION: 1. Single live intrauterine . 2. Closed cervix 4.6 cm in length. Electronically authenticated by: LUIS VALERA Date: 03/11/2024 10:53 Dictated By: Luis Valera M.D. Signed By: 03/11/24 1056 DD/ 105 TD/TT: Six Pack Loader Operator: [facility] Radiology Study observation (narrative) [facility] US OB CERVICAL LENGTHOrdered By: Radiologist Radiology on 03-11-2024 [facility] Work Phone: Urinalysis macro (dipstick) panel (U)on 02-18-2024 Bilirubin, UA Negative Negative - 4(70) +++ mg/dL [facility] Blood, UA Positive Negative - 50 Enrrique/mcL [facility] Comment on above: trace Clarity, UA Clear [facility] Color, UA Yellow [facility] Glucose, UA Negative Negative - 2000(110) ++++ mg/dL [facility] Interpretation and review of laboratory results Abnormal [facility] Ketones, UA Positive Negative - 160(16) ++++ mg/dL [facility] Comment on above: trace Leukocytes, UA Trace Negative - 500+++ Cam/mcL [facility] Nitrite, UA Negative Negative - Positive [facility] pH, UA 7 5 - 9 [facility] Protein, UA Positive Negative - 2000(20) ++++ mg/dL [facility] Comment on above: 30 Spec Grav, UA 1.03 1 - 1.03 [facility] Urobilinogen, UA 1.0 0.2 - 12 mg/dL [facility] ALL CBC WITH AUTO DIFFon BASOPHILS ABSOLUTE AUTO 0 [facility] Basophils/100 WBC (Bld) 0.2 % 0.2 - 2.0 % [facility] Eosinophils/100 WBC (Bld) 0.9 % 0.9 - 7.0 % [facility] Erythrocyte distribution width (RBC) [Ratio] 12.5 % 11.0 - 15.0 % [facility] Hematocrit (Bld) [Volume fraction] 35.3 % Low 36.0 - 48.0 % [facility] Hemoglobin (Bld) [Mass/Vol] 11.8 g/dL Low 12.0 - 16.0 g/dL [facility] IMMATURE GRANULOCYTES ABS AUTO 0.03 [facility] Immature granulocytes/100 WBC (Bld) 0.4 % 0.0 - 0.5 % [facility] Interpretation and review of laboratory results Abnormal [facility] LYMPHOCYTES ABSOLUTE AUTO 2.4 [facility] Lymphocytes/100 WBC (Bld) 29.2 % 20.5 - 60.0 % [facility] MCH (RBC) [Entitic mass] 32 pg 26.7 - 34.0 pg [facility] MCHC (RBC) [Mass/Vol] 33.4 g/dL 29.9 - 35.2 g/dL [facility] MCV (RBC) [Entitic vol] 95.7 fL 81.0 - 99.0 fL [facility] MONOCYTES ABSOLUTE AUTO 0.5 [facility] Monocytes/100 WBC (Bld) 6.5 % 1.7 - 12.0 % [facility] NEUTROPHILS ABSOLUTE AUTO 5.1 [facility] Neutrophils/100 WBC (Bld) 62.8 % 43.0 - 75.0 % [facility] Platelet mean volume (Bld) [Entitic vol] 12 fL 9.5 - 13.5 fL [facility] TBH EO # 0.1 [facility] TB PLT 194 [facility] RBC 3.69 Low [facility] WBC 8.2 [facility] BASIC METABOLIC PANLon 01-25 Anion gap [Moles/Vol] 9 mmol/L Normal 5-15 [facility] Comment on above: Performed By: #### C ILEANA CARLOS, 1988-06, LIVR, 2131-10, 93836-1, 92829-1 #### [facility] ([id number]) [address] [place] [address] #### THMET #### [facility] ([id number]) [address] [place] [address], Calcium [Mass/Vol] 8.6 mg/dL Normal 8.5-10.5 [facility] Comment on above: Performed By: #### ILEANA PITTMAN, 1988-06, LIVR, 2131-10, 86833-2, 56121-5 #### [facility] ([id number]) [address] [place] [address] [address] [place] [address] #### THMET #### [facility] ([id number]) [address] [place] [address], Chloride [Moles/Vol] 104 mmol/L Normal 98-109 [facility] Comment on above: Performed By: #### ILEANA PITTMAN, 1988-06, LIVR, 2131-10, 78965-6, 68795-7 #### [facility] ([id number]) [address] [place], [place] [address], [address] [place] [address] #### THMET #### [facility] ([id number]) [facility], CO2 [Moles/Vol] 21 mmol/L Low 22-32 [facility] Comment on above: Performed By: #### C BREANNA, BMP, 1988-06, LIVR, 2131-10, 65485-0, 27242-1 #### [facility] ([id number]) [address] [facility], [address] [place] [address] #### THMET #### [facility] ([id number]) [address] [place] [address], Creatinine [Mass/Vol] 0.56 mg/dL Normal 0.40-1.00 [facility] Comment on above: Result Comment: METH OD TRACEABLE TO IDMS STANDARD Performed By: #### C BREANNA BMP, 1988-06, LIVR, 2131-10, 75178-9, 80099-2 #### [facility] ([id number]) [address] [place] [address], [address] [place] [address] #### THMET #### [facility] ([id number]) [address] [place] [address], eGFR (CKD-EPI) NON-RACE DEPENDENT >90 Normal >59 [facility] Comment on above: Result Comment: Reported eGFR is based on the CKD-EPI 2020 equation that does not use a race coefficient. Performed By: #### C BC, BMP, 1988-06, LIVR, 2131-10, 26846-0, 11810-7 #### [facility] ([id number]) [address] [place] [address], [address] [place] [address] #### THMET #### [facility] ([id number]) [address] [place] [address], Glucose [Mass/Vol] 73 mg/dL Normal 65-99 [facility] Comment on above: Performed By: #### C BC, BMP, 1988-06, LIVR, 2131-10, 36051-6, 75165-5 #### [facility] ([id number]) [address] [place] [address] #### THMET #### [facility] ([id number]) [address] [place] [address], Potassium [Moles/Vol] 3.8 mmol/L Normal 3.5-5.0 [facility] Comment on above: Performed By: #### C BC, BMP, 1988-06, LIVR, 2131-10, 14508-1, 97358-7 #### [facility] ([id number]) [address] [place] [address] #### THMET #### [facility] ([id number]) [address] [place] [address], Sodium [Moles/Vol] 134 mmol/L Normal 134-146 [facility] Comment on above: Performed By: #### C BC, BMP, 1988-06, LIVR, 2131-10, 10255-6, 35144-4 #### [facility] ([id number]) [address] [place] [address] #### THMET #### [facility] ([id number]) [address] [place] [address], Urea nitrogen [Mass/Vol] 6 mg/dL Normal 5-23 [facility] Comment on above: Performed By: #### C BC, BMP, 1988-06, LIVR, 2131-10, 16146-5, 36889-7 #### [facility] ([id number]) [address] [place] [address] #### THMET #### [facility] ([id number]) [address] [place] [address], COMPLETE BLOOD COUNTon 01-25 Erythrocyte distribution width (RBC) [Ratio] 13.7 % Normal 11.5-15.0 [facility] Comment on above: Performed By: #### C ILEANA CARLOS, 1988-06, LIVR, 2131-10, 10422-3, 34180-2 #### [facility] ([id number]) [address], [address] [place] [address] #### THMET #### [facility] ([id number]) [address] [facility], Hematocrit (Bld) [Volume fraction] 38.5 % Normal 35-47 [facility] Comment on above: Performed By: #### C ILEANA CARLOS, 1988-06, LIVR, 2131-10, 52056-9, 44783-8 #### [facility] ([id number]) [address] [facility] [place] [address] #### THMET #### [facility] ([id number]) [address] [place] [address], Hemoglobin (Bld) [Mass/Vol] 12.8 g/dL Normal 11.7-15.5 [facility] Comment on above: Performed By: #### C ILEANA CARLOS, 1988-06, LIVR, 2131-10, 06221-1, 23138-1 #### [facility] ([id number]) [address], [address] [place] [address] #### THMET #### [facility] ([id number]) [address] [facility], MCH (RBC) [Entitic mass] 32.5 pg Normal 27-34 [facility] Comment on above: Performed By: #### C ILEANA CARLOS, 1988-06, LIVR, 2131-10, 92281-5, 44164-0 #### [facility] ([id number]) [address], [address] [place] [address] #### THMET #### [facility] ([id number]) [address] [facility], MCHC (RBC) [Mass/Vol] 33.3 g/dL Normal 32-36 [facility] Comment on above: Performed By: #### C ILEANA CARLOS, 1988-06, LIVR, 2131-10, 21217-2, 80999-5 #### [facility] ([id number]) [address] [place] [address], [facility] [address] [place] [address] #### THMET #### [facility] ([id number]) [address] [facility], MCV (RBC) [Entitic vol] 98 fL Normal 80-100 [facility] Comment on above: Performed By: #### C ILEANA CARLOS, 1988-06, LIVR, 2131-10, 02420-5, 64338-6 #### [facility] ([id number]) [address] [place] [address], [place] [address] #### THMET #### [facility] ([id number]) [address] [facility], Platelet mean volume (Bld) [Entitic vol] 11.2 fL Normal 7-12 [facility] Comment on above: Performed By: #### C ILEANA CARLOS, 1988-06, LIVR, 2131-10, 07370-4, 54484-1 #### [facility] ([id number]) [address] [place] [address], [address] [place] [address] #### THMET #### [facility] ([id number]) [address] [facility], Platelets (Bld) [#/Vol] 108 10*3/uL Low 150-450 [facility] Comment on above: Performed By: #### ILEANA PITTMAN, 1988-06, LIVR, 2131-10, 51270-0, 38901-8 #### [facility] ([id number]) [address] [place] [address], [address] [address] #### THMET #### [facility] ([id number]) [address] [place] [address], RBC COUNT 3.95 X10E12/L Normal 3.80-5.20 [facility] Comment on above: Performed By: #### C BREANNA, BMP, 1988-06, LIVR, 2131-10, 44346-9, 75571-8 #### [facility] ([id number]) [address] [place] [address], [address] [address] #### THMET #### [facility] ([id number]) [address] [place] [address], WBC (Bld) [#/Vol] 7.2 10*3/uL Normal 4.0-11.0 [facility] Comment on above: Performed By: #### C BREANNA BMP, 1988-06, LIVR, 2131-10, 37318-8, 13977-0 #### [facility] ([id number]) [address] [place] [address], [address] [address] #### THMET #### [facility] ([id number]) [address] [place] [address], CRP [Mass/Vol]on 01-26-2024 C REACTIVE PROTEIN 0.7 mg/dL Normal 0.000-0.744 [facility] Comment on above: Performed By: #### C BREANNA, BMP, 1988-06, LIVR, 2131-10, 89464-1, 28273-6 #### [facility] ([id number]) [address] [place] [address] #### THMET #### [facility] ([id number]) [address] [place] [address], ESR Photometric method (Bld) [Velocity]on 01-26-2024 ESR, ERYTHROCYTE SEDIMENTATION RATE 1 mm/h Normal 0-20 [facility] Comment on above: Performed By: #### C BC, BMP, 1988-06, LIVR, 2131-10, 35704-5, 80508-9 #### [facility] ([id number]) [address] [facility], [address] [place] [address] #### THMET #### [facility] ([id number]) [address] [facility], LIVER PANELon 01-26-2024 Albumin [Mass/Vol] 3.7 g/dL Normal 3.2-5.3 [facility] Comment on above: Performed By: #### C BC, BMP, 1988-06, LIVR, 2131-10, 70605-6, 73628-8 #### [facility] ([id number]) [address] [facility], [address] [place] [address] #### THMET #### [facility] ([id number]) [address] [place] [address], ALP [Catalytic activity/Vol] 29 U/L Low 39-130 [facility] Comment on above: Performed By: #### C BC, BMP, 1988-06, LIVR, 2131-10, 57472-5, 03275-9 #### [facility] ([id number]) [address] [place] [address], [address] [place] [address] #### THMET #### [facility] ([id number]) [address] [place] [address], ALT [Catalytic activity/Vol] 8 U/L Normal 0-31 [facility] Comment on above: Performed By: #### C BC, BMP, 1988-06, LIVR, 2131-10, 59193-2, 52396-7 #### [facility] ([id number]) [address] [place] [address], [address] [place] [address] #### THMET #### [facility] ([id number]) [facility], AST [Catalytic activity/Vol] 19 U/L Normal 0-41 [facility] Comment on above: Performed By: #### C ILEANA CARLOS, 1988-06, LIVR, 2131-10, 68352-7, 84691-1 #### [facility] ([id number]) [address], [address] [place] [address] #### THMET #### [facility] ([id number]) [address] [facility], Bilirubin [Mass/Vol] 0.4 mg/dL Normal 0.3-1.2 [facility] Comment on above: Performed By: #### C ILEANA CARLOS, 1988-06, LIVR, 2131-10, 81434-3, 41541-5 #### [facility] ([id number]) [address] [facility] [place] [address] #### THMET #### [facility] ([id number]) [address] [place] [address], Bilirubin.direct [Mass/Vol] 0.1 mg/dL Normal 0.0-0.4 [facility] Comment on above: Performed By: #### ILEANA PITTMAN, 1988-06, LIVR, 2131-10, 93371-5, 88291-0 #### [facility] ([id number]) [address], [address] [place] [address] #### THMET #### [facility] ([id number]) [address] [place] [address], Protein [Mass/Vol] 7.0 g/dL Normal 6.0-8.0 [facility] Comment on above: Performed By: #### ILEANA PITTMAN, 1988-06, LIVR, 2131-10, 68671-8, 76175-5 #### [facility] ([id number]) [address], [address] [place] [address] #### THMET #### [facility] ([id number]) [address] [facility], THIOPURINE METABOLITESon 6 THIOGUANINE Not performed Normal [facility] Comment on above: Result Comment: NOTE Thiopurine Metabolites, B was cancelled on 02/02/2024 at 16:27; Quantity not sufficient to test. Test Performed by: [facility] [address] [place] [address] Christian Counselor: Celi Fernandez Ph.D.; CLIA# [id number] Performed By: #### C BCA, FEPR, 4 #### [facility] ([id number]) [address] [facility], [address] [place] [address] VITAMIN B12on 01-26-2024 Cobalamin (Vitamin B12) [Mass/Vol] 239 pg/mL Normal 180-914 [facility] Comment on above: Performed By: #### C BC, BMP, 1988-06, LIVR, 2131-10, 71969-3, 16866-9 #### [facility] ([id number]) [address] [facility], [address] [place] [address] #### THMET #### [facility] ([id number]) [address] [place] [address], Vitamin D+Metabolites [Mass/ Vol]on 01-26-2024 VITAMIN D 25 HYD TOT 10.1 ng/mL Low 30-100 [facility] Comment on above: Result Comment: Vitamin D status 25 [place] Vitamin D Deficiency <20 ng/mL Insufficiency 20-29 ng/mL Sufficiency 30-100 ng/mL Toxicity >100 ng/mL NOTE: A pediatric reference range has not been established by the fire range technician of this kit. The [place] [employer] recommends a Vitamin D level of = or >20ng/mL in infants and children. Performed By: #### C BCA, FEPR, 2276-4 #### [facility] ([id number]) [address] [facility] [place] [address] HCG ( test) Ql (U)o n 01-23-2024 Interpretation and review of laboratory results Abnormal [facility] Preg Test, Ur Positive Negative [facility] Urinalysis macro (dipstick) panel (U)on 01-23-2024 Bilirubin, UA Negative Negative - 4(70) +++ mg/dL [facility] Blood, UA Positive Negative - 50 Enrrique/mcL [facility] Clarity, UA Clear [facility] Color, UA Yellow [facility] Glucose, UA Negative Negative - 1999(110) ++++ mg/dL [facility] Interpretation and review of laboratory results Abnormal [facility] Ketones, UA Positive Negative - 160(16) ++++ mg/dL [facility] Leukocytes, UA Negative Negative - 500+++ Cam/mcL [facility] Nitrite, UA Negative Negative - Positive [facility] pH, UA 7 5 - 9 [facility] Protein, UA Trace Negative - 1999(20) ++++ mg/dL [facility] Spec Grav, UA 1.015 1 - 1.03 [facility] Urobilinogen, UA 1.0 0.2 - 12 mg/dL [facility] KAY FECAL OCCULT BLDon 01-02 Hemoglobin.gastroi ntestinal Ql (Stl) Negative Normal NEG [facility] Comment on above: Performed By: #### 2 335-8 #### [facility] ([id number]) [address] [place] [address], [place] [address] CBC AND AUTO DIFFon 12-01-19 ABSOLUTE BASOPHIL 0.0 X10E9/L Normal 0.0-0.2 [facility] Comment on above: Performed By: #### C EDWIN ARROYO, 6-4 #### [facility] ([id number]) [address] [facility] [place] [address] ABSOLUTE NEUTROPHIL 1.9 X10E9/L Normal 1.5-6.6 [facility] Comment on above: Performed By: #### C SELIN ARROYOR, 64 #### [facility] ([id number]) [address], [address] [place] [address] Basophils/100 WBC (Bld) 0.5 % Normal [facility] Comment on above: Performed By: #### C CRUZ, FEPR, 4 #### [facility] ([id number]) [address], [address] [place] [address] Eosinophils (Bld) [#/Vol] 0.1 10*3/uL Normal 0.0-0.4 [facility] Comment on above: Performed By: #### Elizabeth ARROYO, FEPR, 2275-05 #### [facility] ([id number]) [address], [address] [place] [address] Eosinophils/100 WBC (Bld) 2.3 % Normal [facility] Comment on above: Performed By: #### Elizabeth BCA, FEPR, 2275-05 #### [facility] ([id number]) [address], [address] [place] [address] Erythrocyte distribution width (RBC) [Ratio] 13.3 % Normal 11.5-15.0 [facility] Comment on above: Performed By: #### Eliazbeth BCA, FEPR, 2275-05 #### [facility] ([id number]) [address], [address] [place] [address] Hematocrit (Bld) [Volume fraction] 36.2 % Normal 35-47 [facility] Comment on above: Performed By: #### Elizabeth BCA, FEPR, 2275-05 #### [facility] ([id number]) [address], [address] [place] [address] Hemoglobin (Bld) [Mass/Vol] 12.8 g/dL Normal 11.7-15.5 [facility] Comment on above: Performed By: #### Elizabeth ARROYO, FEPR, 4 #### [facility] ([id number]) [address], [address] [place] [address] Lymphocytes (Bld) [#/Vol] 2.3 10*3/uL Normal 1.0-3.5 [facility] Comment on above: Performed By: #### Elizabeth ARROYO, FEPR, 2275-4 #### [facility] ([id number]) [address], [address] [place] [address] Lymphocytes/100 WBC (Bld) 47.4 % Normal [facility] Comment on above: Performed By: #### Elizabeth ARROYO, FEPR, 2275- #### [facility] ([id number]) [address] [address] [place] [address] MCH (RBC) [Entitic mass] 33.2 pg Normal 27-34 [facility] Comment on above: Performed By: #### Elizabeth ARROYO, FEPR, 2275-05 #### [facility] ([id number]) [address], [address] [place] [address] MCHC (RBC) [Mass/Vol] 35.5 g/dL Normal 32-36 [facility] Comment on above: Performed By: #### Elizabeth ARROYO, FEPR, 2275-05 #### [facility] ([id number]) [address] [address] [place] [address] MCV (RBC) [Entitic vol] 94 fL Normal 80-100 [facility] Comment on above: Performed By: #### Elizabeht ARROYO, FEPR, 2275-05 #### [facility] ([id number]) [address], [address] [place] [address] Monocytes (Bld) [#/Vol] 0.4 10*3/uL Normal 0-0.9 [facility] Comment on above: Performed By: #### Elizabeth ARROYO, FEPR, 2275-4 #### [facility] ([id number]) [address], [address] [place] [address] Monocytes/100 WBC (Bld) 9.1 % Normal [facility] Comment on above: Performed By: #### Elizabeth ARROYO, FEPR, 6-4 #### [facility] ([id number]) [address], [facility] [address] [place] [address] Neutrophils/100 WBC (Bld) 40.7 % Normal [facility] Comment on above: Performed By: #### Elizabeth ARROYO FEPR, 2275-4 #### [facility] ([id number]) [address] [address] [place] [address] Platelet mean volume (Bld) [Entitic vol] 11.1 fL Normal 7-12 [facility] Comment on above: Performed By: #### Elizabeth ARROYO, FEPR, 2275-4 #### [facility] ([id number]) [address] [address] [place] [address] Platelets (Bld) [#/Vol] 187 10*3/uL Normal 150-450 [facility] Comment on above: Performed By: #### Elizabeth ARROYO, FEPR, 2275-4 #### [facility] ([id number]) [address] [address] [place] [address] RBC COUNT 3.87 X10E12/L Normal 3.80-5.20 [facility] Comment on above: Performed By: #### Elizabeth ARROYO, FEPR, 2275-4 #### [facility] ([id number]) [address] [address] [place] [address] WBC (Bld) [#/Vol] 4.8 10*3/uL Normal 4.0-11.0 [facility] Comment on above: Performed By: #### Elizabeth ARROYO, FEPR, 2275-4 #### [facility] ([id number]) [address], [facility] [address] [place] [address] FERRITINon 12-01-2023 Ferritin [Mass/Vol] 12 ng/mL Normal 11-307 [facility] Comment on above: Performed By: #### C BCA, FEPR, 6-4 #### [facility] ([id number]) [address], [address] [place] [address] IRON PROFILEon 12-01-2023 Iron [Mass/Vol] 74 ug/dL Normal 50-170 [facility] Comment on above: Performed By: #### C BCA, FEPR, 2275-4 #### [facility] ([id number]) [address], [facility] [address] [place] [address] IRON BINDING 344 ug/dL Normal 250-425 [facility] Comment on above: Performed By: #### C BCA, FEPR, 2275-4 #### [facility] ([id number]) [address], [address] [place] [address] IRON SATURATION 21 % SATURATION Normal 15-50 [facility] Comment on above: Performed By: #### C BCA, FEPR, 2275-4 #### [facility] ([id number]) [address], [address] [place] [address] CBC AND AUTO DIFFon 08-04-19 24 ABSOLUTE BASOPHIL 0.0 X10E9/L Normal 0.0-0.2 [facility] Comment on above: Performed By: #### C BCA, FEPR, 2275-4 #### [facility] ([id number]) [address] [address] [place] [address] ABSOLUTE NEUTROPHIL 2.7 X10E9/L Normal 1.5-6.6 [facility] Comment on above: Performed By: #### C BCA, FEPR, 2275-4 #### [facility] ([id number]) [address], [address] [place] [address] Basophils/100 WBC (Bld) 0.4 % Normal [facility] Comment on above: Performed By: #### C BCA, FEPR, 2275-4 #### [facility] ([id number]) [address], [facility] [address] [place] [address] Eosinophils (Bld) [#/Vol] 0.1 10*3/uL Normal 0.0-0.4 [facility] Comment on above: Performed By: #### C BCA, FEPR, 2275-4 #### [facility] ([id number]) [address], [facility] [address] [place] [address] Eosinophils/100 WBC (Bld) 2.0 % Normal [facility] Comment on above: Performed By: #### C BCA, FEPR, 4 #### [facility] ([id number]) [address] [address] [place] [address] Erythrocyte distribution width (RBC) [Ratio] 13.5 % Normal 11.5-15.0 [facility] Comment on above: Performed By: #### C BCA, FEPR, 2275-4 #### [facility] ([id number]) [address], [facility] [address] [place] [address] Hematocrit (Bld) [Volume fraction] 35.2 % Normal 35-47 [facility] Comment on above: Performed By: #### C BCA, FEPR, 2275-4 #### [facility] ([id number]) [address], [facility] [address] [place] [address] Hemoglobin (Bld) [Mass/Vol] 12.2 g/dL Normal 11.7-15.5 [facility] Comment on above: Performed By: #### C BCA, FEPR, 2275-4 #### [facility] ([id number]) [address] [address] [place] [address] Lymphocytes (Bld) [#/Vol] 1.9 10*3/uL Normal 1.0-3.5 [facility] Comment on above: Performed By: #### C CRUZ, FEPR, 2275-05 #### [facility] ([id number]) [address], [address] [place] [address] Lymphocytes/100 WBC (Bld) 36.8 % Normal [facility] Comment on above: Performed By: #### C BCA, FEPR, 2275-05 #### [facility] ([id number]) [address], [facility] [address] [place] [address] MCH (RBC) [Entitic mass] 31.9 pg Normal 27-34 [facility] Comment on above: Performed By: #### C CRUZ, FEPR, 2275-05 #### [facility] ([id number]) [address], [address] [place] [address] MCHC (RBC) [Mass/Vol] 34.5 g/dL Normal 32-36 [facility] Comment on above: Performed By: #### Elizabeth BCA, FEPR, 2275-05 #### [facility] ([id number]) [address], [address] [place] [address] MCV (RBC) [Entitic vol] 93 fL Normal 80-100 [facility] Comment on above: Performed By: #### Elizabeth BCA, FEPR, 2275-05 #### [facility] ([id number]) [address], [address] [place] [address] Monocytes (Bld) [#/Vol] 0.4 10*3/uL Normal 0-0.9 [facility] Comment on above: Performed By: #### C BCA, FEPR, 2275-05 #### [facility] ([id number]) [address], [address] [place] [address] Monocytes/100 WBC (Bld) 8.3 % Normal [facility] Comment on above: Performed By: #### Elizabeth BCA, FEPR, 2275-05 #### [facility] ([id number]) [address], [address] [place] [address] Neutrophils/100 WBC (Bld) 52.5 % Normal [facility] Comment on above: Performed By: #### C BCA, FEPR, 2275-4 #### [facility] ([id number]) [address], [facility] [address] [place] [address] Platelet mean volume (Bld) [Entitic vol] 10.7 fL Normal 7-12 [facility] Comment on above: Performed By: #### C BCA, FEPR, 2275-4 #### [facility] ([id number]) [address], [facility] [address] [place] [address] Platelets (Bld) [#/Vol] 198 10*3/uL Normal 150-450 [facility] Comment on above: Performed By: #### Elizabeth BCA, FEPR, 2275-4 #### [facility] ([id number]) [address], [address] [place] [address] RBC COUNT 3.81 X10E12/L Normal 3.80-5.20 [facility] Comment on above: Performed By: #### Elizabeth BCA, FEPR, 2275-4 #### [facility] ([id number]) [address] [address] [place] [address] WBC (Bld) [#/Vol] 5.2 10*3/uL Normal 4.0-11.0 [facility] Comment on above: Performed By: #### C BCA, FEPR, 2275-4 #### [facility] ([id number]) [address], [facility] [address] [place] [address] FERRITINon 08-04-2023 Ferritin [Mass/Vol] 27 ng/mL Normal 11-307 [facility] Comment on above: Performed By: #### Elizabeth BCA, FEPR, 2275-4 #### [facility] ([id number]) [address], [address] [place] [address] IRON PROFILEon 08-04-2023 Iron [Mass/Vol] 46 ug/dL Low 50-170 [facility] Comment on above: Performed By: #### C BCA, FEPR, 2276-4 #### [facility] ([id number]) [address] [facility], [address] [place] [address] IRON BINDING 273 ug/dL Normal 250-425 [facility] Comment on above: Performed By: #### C BCA, FEPR, 2276-4 #### [facility] ([id number]) [address] [facility], [address] [place] [address] IRON SATURATION 17 % SATURATION Normal 15-50 [facility] Comment on above: Performed By: #### C BCA, FEPR, 2276-4 #### [facility] ([id number]) [address] [facility], [facility] [address] [place] [address] M. tuberculosis stim IFN-g p carrillo (Bld)on 08-04-2023 Mitogen minus Nil Result 9.92 IU/mL Normal [facility] Comment on above: Performed By: #### 7 1775-1 #### [facility] [employer] ([id number]) [address] [facility], Nil Result 0.08 IU/mL Normal [facility] Comment on above: Result Comment: NOTE Test Performed by: [place] [address] Christian Counselor: Celi Fernandez Ph.D.; CLIA# [id number] Performed By: #### 7 1775-1 #### [employer] ([id number]) [address] [place] [address], QuantiFERON-Tb Gold Plus Result Negative Normal Negative [facility] Comment on above: Result Comment: NOTE No [...] Diagnosis of Tuberculosis in Adults and Children [Eln DM et. al. Clin. Infect. Dis. 2017;64(2):111-115]. The reference range for the 'TB1 Ag minus Nil Result' and 'TB2 Ag minus Nil Result' is an Interferon-gamma level <0.35 IU/mL. Performed By: #### 7 1775-1 #### [employer] ([id number]) [address] [facility], TB1 Ag minus Nil Result 0.09 IU/mL Normal [facility] Comment on above: Performed By: #### 7 1775-1 #### [employer] ([id number]) [facility]0 [facility], TB2 Ag minus Nil Result 0.01 IU/mL Normal [facility] Comment on above: Performed By: #### 7 1775-1 #### [employer] ([id number]) [facility]0 [facility], [facility] ACOG PANEL 2: 30 to 65on 05-07-2022 . . Normal [facility] Comment on above: Result Comment: Perf ormed at: WB Performed By: #### 4 [id number] #### [facility] [address] [place] [address] Dr. Bisi Glass Age Gdln ACOG Testing 30-65 Normal [facility] Comment on above: Performed By: #### 4 [id number] #### [facility] [address] [address] [address] Bisi Glass DIAGNOSIS: Comment Normal [facility] Comment on above: Result Comment: NEGA TIVE FOR INTRAEPITHELIAL LESION OR MALIGNANCY. Performed at: WB Performed By: #### 4 [id number] #### [facility] [address] [place] [address] Dr. Bisi Glass HPV Aptima Negative Normal Negative [facility] Comment on above: Result Comment: This nucleic acid amplification test detects fourteen high-risk HPV types (16,18,31,33,35,39,45,51,52,56,58,59,66,68) without differentiation. Performed at: =G Performed By: #### 4 [id number] #### [facility] [address] [place] [address] Dr. Bisi Glass HPV Genotype Reflex Comment Normal [facility] Comment on above: Result Comment: Crit eria not met, HPV Genotype not performed. Performed at: WB Performed By: #### 4 [id number] #### [facility] [address] [place] [address] Dr. Bisi Glass Methodology: Comment Normal [facility] Comment on above: Result Comment: This liquid based ThinPrep(R) pap test was screened with the use of an image guided system. Performed at: WB Performed By: #### 4 [id number] #### [facility] [address] [place] [address] Dr. Bisi Glass Note: Comment Normal [facility] Comment on above: Result Comment: The Pap smear is a screening test designed to aid in the detection of premalignant and malignant conditions of the uterine cervix. It is not a diagnostic procedure and should not be used as the sole means of detecting cervical cancer. Both false-positive and false-negative reports do occur. . Performed at: WB Performed By: #### 4 [id number] #### [facility] [address] [place] [address] Dr. Bisi Glass Performed by: Comment Normal [facility] Comment on above: Result Comment: Ngozi Hamlin, Welding Robot Operator (ASCP) Performed at: WB Performed By: #### 4 [id number] #### [facility] [address] [place] [address] Dr. Bisi Glass Specimen adequacy: Comment Normal [facility] Comment on above: Result Comment: Sati sfactory for evaluation. Endocervical and/or squamous metaplastic cells (endocervical component) are present. Performed at: WB Performed By: #### 4 [id number] #### [facility] [address] [place] [address] Dr. Bisi Glass [facility]-2017 [facility] Letter TextNorth Century City Hospitaly[address] [place], [place] [address]Mcokx: [phone]: [facility] [address] [place], [place] [address]Xnowd: [phone]: [facility] [address] [place], [place] [address]Pokdp: [phone]: Toll Free: [phone] [email or web address] Roldan M.D., Jhon Mora M.D.Barry Camarena M.D.Samara Hernandez D.O..Oksana Benson M.D.Nati Sullivan M.D. Matt Bobby M.D.February 11, [address] [address]Mvej Ms. Storey,You missed your scheduled appointment on Saturday February 11, 2017. Pleasecall our office to reschedule. If you need to cancel any futureappointments, please call to give us 24 hour notice so that we can offer yourappointment to another patient.Sincerely,Samara Canales M.D. Normal [facility] 12-03-2016 HOSP Infusion [facility] (HEMTCL) PHILLIP STOREY ([id number]) 1990 [facility] Rewctnyfvu51/24/17 1:00 PM CHAIR 1 JOSE PADGETT During your visit today, we recorded the following information about you: Temperature Pulse Respiration Blood pressure 98.9 degrees 76/minute 18/minute 97/64Referring Provider: SAMARA HERNANDEZ [[id number]]Allergies As of Date: 12/03/2016(No Known Allergies)Date Reviewed: 12/03/2016Reviewed by: Kristi JacksonRn) JAD Partida - Fully AssessedPrimary Visit Diagnosis:Anemia, unspecified type [D64.9]Order(s):TREATMENT PARAMETER-NOT NEEDED [6695714] Order #: [id number]: 1 HEMONC NURSING COMMUNICATION [9990214] Order #: [id number]: 1 STANDING HEMONC NURSING COMMUNICATION [9990214] Order #: [id number]: 1 STANDING HEMONC NURSING COMMUNICATION [9990214] Order #: [id number]: 1 STANDING HEMONC NURSING COMMUNICATION [9990214] Order #: [id number]: 1 STANDING HEMONC NURSING COMMUNICATION [9990214] Order #: [id number]: 1 STANDING HEMONC NURSING COMMUNICATION [9990214] Order #: [id number]: 1 STANDING [] iron sucrose 200 mg [...] (1 ML) INJECTION* 12/03/2016 Route: INTRAMUSCULAEncounter Number: [id number] Status:Closed by KRISTI PARTIDA on 12/03/[address] [facility] CNOVSPon 11-19-2016 CNOVS Visit (SP) Office (HEMACL) RALEIGHPHILLIP Richey ([id number]) 1990 FDate Time Provider Rxkjivylcw73/10/17 11:00 AM SAMARA HERNANDEZ HEMACL During your visit today, we recorded the following information about you: Temperature Pulse Respiration Blood pressure 97.8 degrees 78/minute 18/minute 96/61 Weight Height 59.6 kg 1.632 Clara Berger 11/19/2016 11:15 AM SignedPatient states feeling more fatigue.Samara Hernandez DO 11/23/2016 9:43 AM SignedPATIENT NAME: Juan Luis Richey RaleighMRN: [id number] PHYSICIAN: IFTIKHAR RAZO[address] [place] [address] CARE PHYSICIAN: Iftikhar RazoOTHER PHYSICIANS:CHIEF COMPLAINT: Anemia, [...] PRESENT ILLNESS: This is a 26year old -Cameroonian femaleCBC from 05/22/16 reveals white blood cell [...] her second kid in dec 2014.Works a [employer] service.June 04, 2016Eats a bag of ice [...] I answered all questions satisfactorily..Mariano Hernandez D.O.Medical OncologistSharon, [place]Referring Provider: SAMARA HERNANDEZ [[id number]]Allergies As of Date: 11/19/2016(No Known Allergies)Date Reviewed: [...] >> Huong Berger 11/19/2016 11:15 AM >> HUONG BERGER FriNov 19, 2016 11:15 AM Received from: External Pharmacy HYDROXYZINE HCL 50 MG TABLET >> Huong Berger 11/19/2016 11:15 AM >> WANG MayNov 19, 2016 11:15 AM Received from: External PharmacyProblem List As Of Date 11/19/2016 Noted Resolved Anemia [D64.9] INVALID FOR*Visit Notes:>> Huong Berger FriNov 19, 2016 11:15 AM Status: SignedPatient states feeling more fatigue.Encounter Status:Closed by SAMARA HERNANDEZ DO on 11/23/16 Normal [facility] PROGRESSon 11-19-2016 PROGRESS HNO ID: [id number] thor: Samara HernandezService: (none)Author Type: PhysicianType: Progress NotesFiled: 11/23/2016 9:43 AMNote Text:PATIENT NAME: Juan Luis StoreyMRN: [id number] PHYSICIAN: IFTIKHAR RAZO[address] [place] [address] CARE PHYSICIAN: Iftikhar RazoOTHER PHYSICIANS:CHIEF COMPLAINT: Anemia, [...] PRESENT ILLNESS: This is a 26year old -Cameroonian femaleCBC from 05/22/16 reveals white blood cell [...] her second kid in dec 2014.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 I answered all questions satisfactorily..Mariano eHrnandez D.O.Medical OncologistSharon, [place] Normal [facility] Remote CBCDIF (for [facility] use o nly)on 11-19-2016 Abs Baso 0.02 k/uL Normal <0.11 [facility] Abs Chugach 0.40 k/uL Normal 0.00-0.86 [facility] Abs Neut 3.13 k/uL Normal 1.45-7.50 [facility] Basophils/100 WBC Auto (Bld) 0.4 % Normal [facility] Eosinophils 0.05 10*3/uL Normal <0.46 [facility] Eosinophils/100 leukocytes 0.9 % Normal [facility] Erythrocyte distribution width Auto Ratio (RBC) 13.5 % Normal 11.5-15.0 [facility] Erythrocytes (RBC) 3.87 10*6/uL Low 3.90-5.20 [facility] Hematocrit (HCT) 33.0 % Low 36.0-46.0 [facility] Hemoglobin mass conc (Bld) 10.5 g/dL Low 11.5-15.5 [facility] Lymphocytes 1.70 10*3/uL Normal 1.00-4.00 [facility] Lymphocytes/100 leukocytes 32.1 % Normal [facility] MCH 27.1 pG Normal 26.0-34.0 [facility] MCHC mass conc (RBC) 31.8 g/dL Normal 30.5-36.0 [facility] MCV 85.3 fL Normal 80.0-100.0 [facility] Monocytes/100 leukocytes 7.5 % Normal [facility] Neutrophils/100 WBC Auto (Bld) 59.1 % Normal [facility] Platelet mean volume (PMV) 11.0 fL Normal 9.0-12.7 [facility] Platelets 288 10*3/uL Normal 150-400 [facility] WBC (Leukocytes) 5.30 10*3/uL Normal 3.70-11.00 [facility] Remote iSTAT BMP (for [facility] us e only)on 11-19-2016 Anion gap 11 mmol/L Normal 0-15 [facility] BUN (urea nitrogen) 12 mg/dL Normal 8-25 [facility] Chloride 105 mmol/L Normal 98-110 [facility] CO2 24 mmol/L Normal 23-32 [facility] Creatinine 0.70 mg/dL Normal 0.70-1.40 [facility] eGFR (non-black) mL/min/{1.73_m2} Normal [facility] Comment on above: Result Comment: eGFR (Estimated [...] Glucose mass conc 79 mg/dL Normal 65-100 [facility] Ionized Calcium, WB 1.14 mmol/L Normal 1.08-1.30 [facility] Comment on above: Result Comment: Plea se note: This value represents ionized calcium not total calcium. Potassium molar conc 4.0 mmol/L Normal 3.5-5.0 [facility] Sodium 140 mmol/L Normal 132-148 [facility] Ferritinon 10-29-2016 Ferritin 19.8 ng/mL Normal 14.7-205.1 [facility] Comment on above: Performed By: #### I CHERYL, FERR ####[facility] Zkthcodvbxon[address] AveCDobson, [place] [phone] Iron and TIBCon 10-29-2016 Iron 21 ug/dL Low 41-186 [facility] Comment on above: Performed By: #### I CHERYL, FERR ####[facility] [address] AvBlackwell, [place] [phone] TIBC 331 ug/dL Normal 232-386 [facility] Comment on above: Performed By: #### I CHERYL, FERR ####[facility] [address]ona AveCDobson, [place] [phone] Transferrin Saturatn 6 % Low 15-57 [facility] Comment on above: Performed By: #### I CHERYL, FERR ####[facility] [address] [place], [place] [phone] Remote CBCDIF (for [facility] use o nly)on 10-29-2016 Abs Baso 0.02 k/uL Normal 0.00-0.10 [facility] Abs Chugach 0.42 k/uL Normal 0.00-0.86 [facility] Abs Neut 3.06 k/uL Normal 1.45-7.50 [facility] Basophils/100 WBC Auto (Bld) 0.3 % Normal [facility] Eosinophils 0.11 10*3/uL Normal 0.00-0.45 [facility] Eosinophils/100 leukocytes 1.8 % Normal [facility] Erythrocyte distribution width Auto Ratio (RBC) 12.9 % Normal 11.5-15.0 [facility] Erythrocytes (RBC) 3.90 10*6/uL Normal 3.90-5.20 [facility] Hematocrit (HCT) 34.0 % Low 36.0-46.0 [facility] Hemoglobin mass conc (Bld) 10.8 g/dL Low 11.5-15.5 [facility] Lymphocytes 2.37 10*3/uL Normal 1.00-4.00 [facility] Lymphocytes/100 leukocytes 39.6 % Normal [facility] MCH 27.7 pG Normal 26.0-34.0 [facility] MCHC mass conc (RBC) 31.8 g/dL Normal 30.5-36.0 [facility] MCV 87.2 fL Normal 80.0-100.0 [facility] Monocytes/100 leukocytes 7.0 % Normal [facility] Neutrophils/100 WBC Auto (Bld) 51.3 % Normal [facility] Platelet mean volume (PMV) 10.8 fL Normal 9.0-12.7 [facility] Platelets 268 10*3/uL Normal 150-400 [facility] WBC (Leukocytes) 5.98 10*3/uL Normal 3.70-11.00 [facility] Remote iSTAT BMP (for [facility] us e only)on 10-29-2016 Anion gap 11 mmol/L Normal 0-15 [facility] BUN (urea nitrogen) 9 mg/dL Normal 8-25 [facility] Chloride 104 mmol/L Normal 98-110 [facility] CO2 26 mmol/L Normal 23-32 [facility] Creatinine 0.70 mg/dL Normal 0.70-1.40 [facility] eGFR (non-black) mL/min/{1.73_m2} Normal [facility] Comment on above: Result Comment: eGFR (Estimated [...] Glucose mass conc 83 mg/dL Normal 65-100 [facility] Ionized Calcium, WB 1.16 mmol/L Normal 1.08-1.30 [facility] Comment on above: Result Comment: Plea se note: This value represents ionized calcium not total calcium. Potassium molar conc 3.8 mmol/L Normal 3.5-5.0 [facility] Sodium 141 mmol/L Normal 132-148 [facility] Ferritinon 08-22-2017 Ferritin 9.1 ng/mL Low 14.7-205.1 [facility] Comment on above: Performed By: #### I CHERYL, FERR ####[facility] [place], [place] [phone] Iron and TIBCon 10-01-2016 Iron 34 ug/dL Low 41-186 [facility] Comment on above: Performed By: #### I CHERYL, FERR ####[facility] [place], [place] [phone] TIBC 316 ug/dL Normal 232-386 [facility] Comment on above: Performed By: #### I CHERYL, FERR ####[facility] [place], [place] [phone] Transferrin Saturatn 11 % Low 15-57 [facility] Comment on above: Performed By: #### Tatum LUNA, FERR ####[facility] [place], [place] [phone] Remote CBCDIF (for [facility] use o nly)on 10-01-2016 Abs Baso 0.02 k/uL Normal 0.00-0.10 [facility] Abs Chugach 0.53 k/uL Normal 0.00-0.86 [facility] Abs Neut 2.48 k/uL Normal 1.45-7.50 [facility] Basophils/100 WBC Auto (Bld) 0.4 % Normal [facility] Eosinophils 0.09 10*3/uL Normal 0.00-0.45 [facility] Eosinophils/100 leukocytes 1.6 % Normal [facility] Erythrocyte distribution width Auto Ratio (RBC) 13.7 % Normal 11.5-15.0 [facility] Erythrocytes (RBC) 3.85 10*6/uL Low 3.90-5.20 [facility] Hematocrit (HCT) 33.5 % Low 36.0-46.0 [facility] Hemoglobin mass conc (Bld) 10.7 g/dL Low 11.5-15.5 [facility] Lymphocytes 2.36 10*3/uL Normal 1.00-4.00 [facility] Lymphocytes/100 leukocytes 43.1 % Normal [facility] MCH 27.8 pG Normal 26.0-34.0 [facility] MCHC mass conc (RBC) 31.9 g/dL Normal 30.5-36.0 [facility] MCV 87.0 fL Normal 80.0-100.0 [facility] Monocytes/100 leukocytes 9.7 % Normal [facility] Neutrophils/100 WBC Auto (Bld) 45.2 % Normal [facility] Platelet mean volume (PMV) 10.8 fL Normal 9.0-12.7 [facility] Platelets 282 10*3/uL Normal 150-400 [facility] WBC (Leukocytes) 5.48 10*3/uL Normal 3.70-11.00 [facility] Remote iSTAT BMP (for [facility] us e only)on 10-01-2016 Anion gap 13 mmol/L Normal 0-15 [facility] BUN (urea nitrogen) 14 mg/dL Normal 8-25 [facility] Chloride 102 mmol/L Normal 98-110 [facility] CO2 24 mmol/L Normal 23-32 [facility] Creatinine 0.70 mg/dL Normal 0.70-1.40 [facility] eGFR (non-black) mL/min/{1.73_m2} Normal [facility] Comment on above: Result Comment: eGFR (Estimated [...] Glucose mass conc 93 mg/dL Normal 65-100 [facility] Ionized Calcium, WB 1.14 mmol/L Normal 1.08-1.30 [facility] Comment on above: Result Comment: Plea se note: This value represents ionized calcium not total calcium. Potassium molar conc 3.7 mmol/L Normal 3.5-5.0 [facility] Sodium 139 mmol/L Normal 132-148 [facility] Remote CBCDIF (for [facility] use o nly)on 08-29-2016 Abs Baso 0.02 k/uL Normal 0.00-0.10 [facility] Abs Chugach 0.52 k/uL Normal 0.00-0.86 [facility] Abs Neut 3.37 k/uL Normal 1.45-7.50 [facility] Basophils/100 WBC Auto (Bld) 0.3 % Normal [facility] Eosinophils 0.10 10*3/uL Normal 0.00-0.45 [facility] Eosinophils/100 leukocytes 1.7 % Normal [facility] Erythrocyte distribution width Auto Ratio (RBC) 18.7 % High 11.5-15.0 [facility] Erythrocytes (RBC) 3.97 10*6/uL Normal 3.90-5.20 [facility] Hematocrit (HCT) 33.0 % Low 36.0-46.0 [facility] Hemoglobin mass conc (Bld) 10.5 g/dL Low 11.5-15.5 [facility] Lymphocytes 1.92 10*3/uL Normal 1.00-4.00 [facility] Lymphocytes/100 leukocytes 32.4 % Normal [facility] MCH 26.4 pG Normal 26.0-34.0 [facility] MCHC mass conc (RBC) 31.8 g/dL Normal 30.5-36.0 [facility] MCV 83.1 fL Normal 80.0-100.0 [facility] Monocytes/100 leukocytes 8.8 % Normal [facility] Neutrophils/100 WBC Auto (Bld) 56.8 % Normal [facility] Platelet mean volume (PMV) 10.0 fL Normal 9.0-12.7 [facility] Platelets 263 10*3/uL Normal 150-400 [facility] WBC (Leukocytes) 5.93 10*3/uL Normal 3.70-11.00 [facility] Remote iSTAT BMP (for [facility] us e only)on 08-29-2016 Anion gap 12 mmol/L Normal 0-15 [facility] BUN (urea nitrogen) 12 mg/dL Normal 8-25 [facility] Chloride 104 mmol/L Normal 98-110 [facility] CO2 24 mmol/L Normal 23-32 [facility] Creatinine 0.80 mg/dL Normal 0.70-1.40 [facility] eGFR (non-black) mL/min/{1.73_m2} Normal [facility] Comment on above: Result Comment: eGFR (Estimated [...] Glucose mass conc 91 mg/dL Normal 65-100 [facility] Ionized Calcium, WB 1.14 mmol/L Normal 1.08-1.30 [facility] Comment on above: Result Comment: Plea se note: This value represents ionized calcium not total calcium. Potassium molar conc 3.7 mmol/L Normal 3.5-5.0 [facility] Sodium 140 mmol/L Normal 132-148 [facility] Vital Signs Date Time Vital Sign Value Performing Clinician Facility 03-17-2024 10:51-0500 Body mass index (BMI) [Ratio] 29.31 kg/m2 Yaquelin BELCHER Work Phone: [facility] 03-17-2024 10:51-0500 Body weight 79.89 kg Yaquelin BELCHER Work Phone: [facility] 03-17-2024 10:51-0500 Diastolic blood pressure 70 mm[Hg] Yaquelin BELCHER Work Phone: [facility] 03-17-2024 10:51-0500 Systolic blood pressure 116 mm[Hg] Yaquelin BELCHER Work Phone: [facility] 03-08-2024 12:30-0500 Body temperature 99.81 [degF] Wlc 1 [facility] [employer] 03-08-2024 12:30-0500 Diastolic blood pressure 69 mm[Hg] Wlc 1 [facility] 03-08-2024 12:30-0500 Heart rate 103 /min Wlc 1 [facility] 03-08-2024 12:30-0500 Respiratory rate 18 /min Wlc 1 [facility] [employer] 03-08-2024 12:30-0500 Systolic blood pressure 109 mm[Hg] Wlc 1 [facility] 03-08-2024 10:10-0500 Body mass index (BMI) [Ratio] 29.62 kg/m2 Wl 1 [facility] 03-08-2024 10:10-0500 Body weight 80.74 kg [facility] 1 [facility] 02-18-2024 11:43-0500 Body mass index (BMI) [Ratio] 29.29 kg/m2 Parish Courtney DO Work Phone: [facility] 02-18-2024 11:43-0500 Body weight 79.83 kg Parish Courtney DO Work Phone: [facility] 02-18-2024 11:43-0500 Diastolic blood pressure 72 mm[Hg] Parish Courtney DO Work Phone: [facility] 02-18-2024 11:43-0500 Systolic blood pressure 122 mm[Hg] Parish Courtney [employer] Work Phone: [facility] 12-12-2023 11:50-0400 Body temperature 98.91 [degF] Wl 2 [facility] [employer] [facility] 12-12-2023 11:50-0400 Diastolic blood pressure 66 mm[Hg] Wlc 2 [facility] 12-12-2023 11:50-0400 Heart rate 92 /min Wlc 2 [facility] 12-12-2023 11:50-0400 Respiratory rate 18 /min Wlc 2 [facility] [employer] 12-12-2023 11:50-0400 Systolic blood pressure 100 mm[Hg] Wlc 2 [facility] 12-12-2023 10:31-0400 Body mass index (BMI) [Ratio] 27.96 kg/m2 Wl 2 [facility] 12-12-2023 10:31-0400 Body weight 76.2 kg Wl 2 [facility] 12-01-2023 14:25-0400 Body height 165.1 cm Dominique Josh REGIONAL DIRECTOR OF ADMISSIONS[employer] Work Phone: [facility] 12-01-2023 14:25-0400 Body mass index (BMI) [Ratio] 27.89 kg/m2 Dominique Josh REGIONAL DIRECTOR OF ADMISSIONS[employer] Work Phone: [facility] 12-01-2023 14:25-0400 Body temperature 98.8 [degF] Dominique Josh REGIONAL DIRECTOR OF ADMISSIONS[employer] Work Phone: [facility] 12-01-2023 14:25-0400 Body weight 76.02 kg Dominique Josh REGIONAL DIRECTOR OF ADMISSIONS[employer] Work Phone: [facility] 12-01-2023 14:25-0400 Diastolic blood pressure 76 mm[Hg] Dominique Josh REGIONAL DIRECTOR OF ADMISSIONS[employer] Work Phone: [facility] 12-01-2023 14:25-0400 Heart rate 71 /min Dominique Josh REGIONAL DIRECTOR OF ADMISSIONS[employer] Work Phone: [facility] 12-01-2023 14:25-0400 Respiratory rate 16 /min Dominique Josh REGIONAL DIRECTOR OF ADMISSIONS[employer] Work Phone: [facility] 12-01-2023 14:25-0400 SaO2% (BldA) [Mass fraction] 99 % Dominique Josh REGIONAL DIRECTOR OF ADMISSIONS[employer] Work Phone: [facility] 12-01-2023 14:25-0400 Systolic blood pressure 111 mm[Hg] Dominique Josh REGIONAL DIRECTOR OF ADMISSIONS[employer] Work Phone: [facility] 04-21-2023 13:05-0400 Body temperature 97.81 [degF] Wl 4 [facility] 04-21-2023 13:05-0400 Diastolic blood pressure 75 mm[Hg] [facility] 4 [facility] 04-21-2023 13:05-0400 Heart rate 78 /min [facility] 4 [facility] 04-21-2023 13:05-0400 Respiratory rate 20 /min [facility] 4 [facility] 04-21-2023 13:05-0400 Systolic blood pressure 117 mm[Hg] [facility] 4 [facility] 04-21-2023 10:29-0400 Body mass index (BMI) [Ratio] 27.89 kg/m2 [facility] 4 [facility] 04-21-2023 10:29-0400 Body weight 76.[address] 02-20-2023 11:48-0500 Body height 165.1 cm Lyndsey Anders MD Work Phone: [facility] 02-20-2023 11:48-0500 Body mass index (BMI) [Ratio] 27.46 kg/m2 Lyndsey Anders MD Work Phone: [facility] 02-20-2023 11:48-0500 Body temperature 98.91 [degF] Lyndsey Anders MD Work Phone: [facility] 02-20-2023 11:48-0500 Body weight 74.84 kg Lyndsey Anders MD Work Phone: [facility] 02-20-2023 11:48-0500 Diastolic blood pressure 72 mm[Hg] Lyndsey Anders MD Work Phone: [facility] 02-20-2023 11:48-0500 Heart rate 104 /min Lyndsey Anders MD Work Phone: [facility] 02-20-2023 11:48-0500 SaO2% (BldA) [Mass fraction] 99 % Lyndsey Anders MD Work Phone: [facility] 02-20-2023 11:48-0500 Systolic blood pressure 114 mm[Hg] Lyndsey Anders MD Work Phone: [facility] 02-17-2023 14:26-0500 Body temperature 99.1 [degF] [address] 02-17-2023 14:26-0500 Diastolic blood pressure 77 mm[Hg] [address] 02-17-2023 14:26-0500 Heart rate 100 /min [address] 02-17-2023 14:26-0500 SaO2% (BldA) [Mass fraction] 97 % [address] 02-17-2023 14:26-0500 Systolic blood pressure 117 mm[Hg] [address] 02-17-2023 11:45-0500 Body mass index (BMI) [Ratio] 27.69 kg/m2 [address] 02-17-2023 11:45-0500 Body weight 75.[address] 02-17-2023 11:45-0500 Respiratory rate 20 /min [address] 02-06-2023 12:54-0500 Diastolic blood pressure 69 mm[Hg] Pfo 3 [facility] 02-06-2023 12:54-0500 Heart rate 92 /min Pf 3 [facility] 02-06-2023 12:54-0500 Respiratory rate 18 /min Pf 3 [facility] 02-06-2023 12:54-0500 SaO2% (BldA) [Mass fraction] 100 % Pf 3 [facility] 02-06-2023 12:54-0500 Systolic blood pressure 104 mm[Hg] Pfo 3 [facility] 02-06-2023 11:37-0500 Body height 165.1 cm Pfo 3 [facility] 02-06-2023 11:37-0500 Body mass index (BMI) [Ratio] 27.46 kg/m2 Pf 3 [facility] 02-06-2023 11:37-0500 Body temperature 98.4 [degF] Pf 3 [facility] 02-06-2023 11:37-0500 Body weight 74.84 kg Pfo 3 [facility] Encounters Encounter Date Encounter Type Care Provider Facility Start: 03-17-2024 End: 03-17-2024 Bamboo flowsheet Yaquelin BELCHER Work Phone: [facility] Start: 03-17-2024 End: 03-18-2024 Bamboo flowsheet Yaquelin BELCHER Work Phone: [facility] Start: 03-17-2024 End: 03-18-2024 External Result Encounter Yaquelin BELCHER Work Phone: [facility] Unsolicited Start: 03-17-2024 End: 03-17-2024 ambulatory YAQUELIN HORNE Not Available Start: 03-17-2024 End: 03-17-2024 flow sheet Yaquelin EBLCHER Work Phone: [facility] Comment on above: Second trimester pre gnancy; 19 weeks gestation of ; Vaginal discharge; STD exposure; Screening, , for anatomic survey Start: 03-11-2024 End: 03-11-2024 Clinisync Result Encounter Parish Courtney DO Work Phone: [facility] Unsolicited Start: 03-11-2024 End: 03-11-2024 Clinisync Result Encounter Parish Courtney DO Work Phone: [facility] Unsolicited Start: 03-08-2024 End: 03-08-[address] [facility] 1 [facility] Comment on above: Crohn's disease of b oth small and large intestine with intestinal obstruction (CMS-HCC) (Primary Dx) Start: 02-18-2024 End: 02-18-2024 Bamboo flowsheet Parish Courtney DO Work Phone: [facility] Start: 02-18-2024 End: 02-18-2024 Bamboo flowsheet Parish Courtney DO Work Phone: [facility] Start: 02-18-2024 End: 02-18-2024 ambulatory PARISH COURTNEY Not Available Start: 02-18-2024 End: 01-08-2025 flow sheet Parish Courtney DO Work Phone: [...] Orders Only Sharda Montiel MD Work Phone: [facility] Comment on above: Therapeutic drug mon itoring (Primary Dx) Start: 01-31-2024 End: 01-31-2024 Emergency department patient visit [facility] Start: 01-26-2024 End: 01-26-2024 ambulatory [facility] Start: 01-26-2024 End: 01-26-2024 ambulatory [facility] Start: 01-23-2024 End: 01-23-2024 ambulatory YAQUELIN HORNE Not Available Start: 01-23-2024 End: 01-23-2024 Office outpatient visit 5 minutes [facility] Courtney Nurse [facility] Comment on above: GA: 11w2d Start: 01-13-2024 End: 01-13-2024 Orders Only Dominique Moya REGIONAL DIRECTOR OF ADMISSIONS-ENGRAVER JEWELRY Work Phone: [facility] Comment on above: Iron deficiency anem ia due to chronic blood loss (Primary Dx); Iron malabsorption; Iron deficiency anemia, unspecified Start: 01-06-2024 End: 01-06-2024 Orders Only Dominique Moya REGIONAL DIRECTOR OF ADMISSIONS-ENGRAVER JEWELRY Work Phone: [facility] Comment on above: Iron deficiency anem ia due to chronic blood loss (Primary Dx); Iron malabsorption; Iron deficiency anemia, unspecified Start: 01-03-2024 End: 01-03-2024 Emergency department patient visit [facility] Start: 12-17-2023 End: 12-18-2023 Telephone encounter Raf Zarco RN [facility] Start: 12-12-2023 End: 12-12-[address] [facility] Infusion Chair 2 [facility] Comment on above: Crohn's disease of b oth small and large intestine with intestinal obstruction (CMS-HCC) (Primary Dx) Start: 12-01-2023 End: 12-01-2023 Office outpatient visit 25 minutes Dominique Moya APRN-ENGRAVER JEWELRY Work Phone: [facility] Comment on above: Iron deficiency (Ping hussein Dx); Crohn's disease of both small and large intestine with intestinal obstruction (CMS-HCC); Chronic fatigue; Leg cramps; Noncompliance; Iron deficiency anemia due to chronic blood loss; Iron malabsorption; Iron deficiency anemia, unspecified Start: 12-01-2023 End: 12-01-2023 ambulatory DOMINIQUE MOYA [facility] Start: 12-01-2023 End: 12-01-2023 ambulatory MJ PIZARRO [facility] Start: 10-31-2023 End: 10-31-2023 ambulatory [facility] Start: 09-17-2023 End: 09-17-2023 ambulatory [facility] Start: 09-15-2023 End: 09-15-2023 ambulatory YAQUELIN HORNE Not Available Start: 09-15-2023 End: 09-15-2023 ambulatory [facility] Start: 09-03-2023 End: 09-03-2023 ambulatory [facility] Start: 08-20-2023 End: 08-20-2023 ambulatory [facility] Start: 08-04-2023 End: 08-04-2023 ambulatory SHARDA SERNAUMM [facility] Start: 08-04-2023 End: 08-04-2023 ambulatory HILARY AVILES [facility] Start: 06-18-2023 End: 06-19-2023 Telephone encounter Ariane Jarquin CMA [facility] Start: 06-10-2023 End: 06-19-2023 Telephone encounter Raf Zarco RN [facility] Start: 06-09-2023 End: 06-09-2023 Orders Only Deisy Vera RN [facility] Comment on above: Crohn's disease of b oth small and large intestine with intestinal obstruction (CMS-HCC) (Primary Dx) Start: 04-21-2023 Telephone encounter Sharda Elliott MD Work Phone: [facility] Start: 04-21-2023 End: 04-21-[address] [facility] In[facility] Chair 4 [facility] Comment on above: Crohn's disease of b oth small and large intestine with intestinal obstruction (CMS-HCC) (Primary Dx) Start: 04-14-2023 Telephone encounter Nic Aguilar [facility] Start: 03-31-2023 Telephone encounter Nic Aguilar [facility] Start: 03-19-2023 End: 03-19-2023 ambulatory [facility] Start: 02-20-2023 End: 02-20-2023 Office outpatient visit 25 minutes Lyndsey Anders MD Work Phone: [facility] Comment on above: Reactive airway dise ase with acute exacerbation, unspecified asthma severity, unspecified whether persistent (Primary Dx); Shortness of breath; COVID-19; Sinusitis, unspecified chronicity, unspecified location Start: 02-20-2023 End: 02-20-2023 ambulatory [facility] Start: 02-17-2023 End: 02-17-[address] [facility] Infusion Chair 3 [facility] Comment on above: Crohn's disease of b oth small and large intestine with intestinal obstruction (CMS-HCC) (Primary Dx) Start: 02-06-2023 End: 02-06-2023 ambulatory MJ PIZARRO [facility] Comment on above: Iron deficiency anem ia due to chronic blood loss (Primary Dx); Iron deficiency anemia, unspecified; Iron malabsorption Start: 04-30-2022 End: 04-30-2022 ambulatory SEBASTIAN HERRING Facility: Start: 12-03-2016 End: 12-04-2016 Ambulatory SAMARA HERNANDEZ [facility] Start: 11-19-2016 End: 11-26-2016 Ambulatory SAMARA HERNANDEZ [facility] Start: 10-29-2016 End: 10-30-2016 Ambulatory SAMARA HERNANDEZ [facility] Start: 10-01-2016 End: 10-01-2016 Ambulatory SAMARA HERNANDEZ [facility] Start: 08-29-2016 End: 08-29-2016 Ambulatory SAMARA HERNANDEZ [facility] Procedures Date Procedure Procedure Detail Performing Clinician Start: 03-17-2024 RECURRENT VAGINITIS (HTRX) Yaquelin BELCHER Work Phone: Start: 03-11-2024 US OB CERVICAL LENGTH C orey Courtney DO Work Phone: Start: 02-18-2024 Urnls dip stick/tabl et rgnt [...] Adult depression scr eening assessment Dominique Moya REGIONAL DIRECTOR OF ADMISSIONS-ENGRAVER JEWELRY Work Phone: Start: 09-17-2023 Microscopic observat ion [Identifier] in Cervix by Cyto stain Dominique Moya REGIONAL DIRECTOR OF ADMISSIONS-ENGRAVER JEWELRY Work Phone: Start: 11-23-2020 Adult depression scr eening assessment Pfo 3 Plan of Treatment Date Care Activity Detail Author Start: 09-16-2026 Screening for malign ant neoplasm of cervix Pap Smear [facility] Start: 01-30-2025 Adult BMI Screening Adult BMI Screen ing [facility] Start: 01-30-2025 Tobacco Screening Tobacco Screening [facility] Start: 01-02-2025 Adult BMI Screening Adult BMI Screen ing [facility] Start: 01-02-2025 Tobacco Screening Tobacco Screening [facility] Start: 12-11-2024 Adult BMI Screening Adult BMI Screen ing [facility] Start: 12-02-2024 End: 12-02-2024 Patient encounter procedure 12/02/2024 10:15 AM EDT Office Visit [facility] [address] [place] [phone] Mj Pizarro MD [address] [place] [address] [address] [place] [address] [facility] Start: 10-30-2024 Adult BMI Screening Adult BMI Screen ing [facility] Start: 10-30-2024 Tobacco Screening Tobacco Screening [facility] Start: 09-16-2024 Depression Screening Depression Scre ening [facility] Start: 05-31-2024 End: 05-31-2024 ambulatory 05/31/2024 10:00 AM EDT Infusion [facility] [address] [facility] [place] [phone] [facility] Start: 04-20-2024 Adult BMI Screening Adult BMI Screen ing [facility] Start: 04-19-2024 End: 04-19-2024 ambulatory 04/19/2024 10:30 AM EDT Infusion [facility] [address] [facility] [place] [phone] [facility] Start: 04-19-2024 End: 04-19-2024 Patient encounter procedure 04/19/2024 10:00 AM EDT Office Visit [facility] [address] [place] [address] [address] [place] [address] Sharda Montiel MD [address] [facility], [address] [place] [address] [facility] Start: 04-14-2024 End: 04-14-2024 Patient encounter procedure 04/14/2024 1:40 PM EST Routine [facility] [address] [place] [phone] Parish Valdez DO [address] [place] [address] [facility] Start: 03-17-2024 End: 09-14-2024 Alpha fetoprotein, maternal Alpha fetoprotein, maternal Lab Routine Second trimester 19 weeks gestation of Expected: 03/17/2024 (Approximate), Expires: 09/14/2024 [facility] Comment on above: Expected: 03/17/2024 (Approximate), Expires: 09/14/2024 Start: 03-17-2024 End: 03-17-2025 US for US OB 14+ weeks anatomy scan Imaging Routine Screening, , for anatomic survey Expected: 03/17/2024, Expires: 03/17/2025 [facility] Comment on above: Expected: 03/17/2024 , Expires: 03/17/2025 Start: 03-17-2024 End: 03-17-2024 Patient encounter procedure 03/17/2024 10:30 AM EST Routine [facility] [address] [place] [place] [phone] Yaquelin Horne PA [address] [place] [address] [facility] Start: 03-08-2024 End: 03-08-2024 ambulatory 03/08/2024 10:00 AM EST Infusion [facility] [address] [phone] [facility] Start: 02-21-2024 Adult BMI Screening Adult BMI Screen ing [facility] Start: 02-21-2024 Tobacco Screening Tobacco Screening [facility] Start: 02-18-2024 Adult BMI Screening Adult BMI Screen ing [facility] Start: 02-18-2024 End: 02-18-2024 Patient encounter procedure 02/18/2024 11:30 AM EST Routine [facility] [address] [place] [address] Parish Valdez DO [address] [facility] [address] [place] [address] [facility] Start: 02-07-2024 Tobacco Screening Tobacco Screening [facility] Start: 01-31-2024 Adult BMI Screening Adult BMI Screen ing [facility] Start: 01-31-2024 Tobacco Screening Tobacco Screening [facility] Start: 01-26-2024 End: 01-26-2024 ambulatory 01/26/2024 10:00 AM EST Infusion [facility] [address] [phone] [facility] Start: 01-23-2024 End: 01-22-2025 ABO/Rh ABO/Rh Lab Routine Missed menses , unspecified gestational age Expected: 01/23/2024 (Approximate), Expires: 01/22/2025 [facility] Comment on above: Expected: 01/23/2024 (Approximate), Expires: 01/22/2025 Start: 01-23-2024 End: 01-22-2025 Blood type and Indirect antibody screen panel - Blood Type and screen Lab Routine Missed menses , unspecified gestational age Expected: 01/23/2024 (Approximate), Expires: 01/22/2025 [facility] Work Phone: Comment on above: Expected: 01/23/2024 (Approximate), Expires: 01/22/2025 Start: 01-23-2024 End: 01-22-2025 Drugs of abuse panel - Urine by Screen method Rapid drug screen, urine Lab Routine , unspecified gestational age Encounter for supervision of normal first in first trimester Expected: 01/23/2024 (Approximate), Expires: 01/22/2025 [facility] Comment on above: Expected: 01/23/2024 (Approximate), Expires: 01/22/2025 Start: 01-23-2024 End: 01-22-2025 US Pelvis transvaginal US OB transvaginal Imaging Routine Missed menses Expected: 01/23/2024 (Approximate), Expires: 01/22/2025 [facility] Comment on above: Expected: 01/23/2024 (Approximate), Expires: 01/22/2025 Start: 12-22-2023 End: 12-22-2023 Patient encounter procedure 12/22/2023 3:40 PM EST [facility] [address] [place] [phone] Hilary Aviles, REGIONAL DIRECTOR OF ADMISSIONS-ENGRAVER JEWELRY [address] [facility] [address], [place] [address] [facility] Start: 12-12-2023 End: 12-12-2023 ambulatory 12/12/2023 10:00 AM EDT Infusion [facility] [address] [phone] [facility] Start: 11-20-2023 End: 11-20-2023 Patient encounter procedure 11/20/2023 1:00 PM EDT Office Visit [facility] [address] [place] [phone] Mj Pizarro MD [address] [facility] [facility] [address] [place] [address] [facility] Start: 10-12-2023 Influenza vaccination Influenza Vacc ine [facility] Start: 06-17-2023 End: 06-17-2023 Patient encounter procedure 06/17/2023 11:15 AM EDT Office Visit [facility] [address] [place], [place] [address] [address] Meaghan King PA-C [address] [address] [facility] Start: 06-10-2023 End: 06-10-2023 ambulatory 06/10/2023 10:30 AM EDT Infusion [facility] [address] [place] [phone] [facility] Start: 04-21-2023 End: 04-21-2023 ambulatory 04/21/2023 10:00 AM EDT Infusion [facility] [address] [phone] [facility] Start: 03-31-2023 End: 03-31-2023 ambulatory 03/31/2023 10:00 AM EST Infusion [facility] [address] [phone] [facility] Start: 02-17-2023 End: 02-17-2023 ambulatory 02/17/2023 11:30 AM EST Infusion [facility] [address] [phone] [facility] Start: 10-11-2022 Influenza vaccination Influenza Vacc ine [facility] Start: 11-23-2021 [facility] Start: 2010 Screening for malign ant neoplasm of cervix Pap Smear [facility] Start: 2008 DTaP,Tdap and Td Vaccines (1 - Tdap) DTaP,Tdap and Td Vaccines (1 - Tdap) [facility] Start: 11-11-2007 Adult BMI Follow Up Plan Adult BMI F ollow Up Plan [facility] FOBO Bacteria identified in Urine by Culture Urine culture Microbiology Routine Missed menses Ordered: 01/23/2024 [facility] Comment on above: Ordered: 01/23/2024 CBC W Auto Different ial panel - Blood CBC and differential Lab Routine Missed menses , unspecified gestational age Ordered: 01/23/2024 [facility] Comment on above: Ordered: 01/23/2024 CHLAMYDIA TRACHOMATI S (GENITO/STI) CHLAMYDIA TRACHOMATIS (GENITO/STI) Lab Routine STD exposure Ordered: 03/17/2024 [facility] Comment on above: Ordered: 03/17/2024 Hemoglobin A1c/Hemoglobin.total in Blood Hemoglobin A1c Lab Routine Missed menses , unspecified gestational age Ordered: 01/23/2024 [facility] Comment on above: Ordered: 01/23/2024 Hepatitis B virus surface Ag [Presence] in Serum or Plasma by Immunoassay Hepatitis B surface antigen Lab Routine Missed menses , unspecified gestational age Ordered: 01/23/2024 [facility] Comment on above: Ordered: 01/23/2024 Hepatitis C virus Ab [Presence] in Serum or Plasma by Immunoassay Hepatitis C antibody Lab Routine Missed menses , unspecified gestational age Ordered: 01/23/2024 [facility] Comment on above: Ordered: 01/23/2024 HIV-1/HIV-2 antigen/antibody combination immunoassay HIV-1 and HIV-2 antibodies Lab Routine Missed menses , unspecified gestational age Ordered: 01/23/2024 [facility] Comment on above: Ordered: 01/23/2024 End: 06-08-2024 Mycobacterium TB by Quantiferon Gold Mycobacterium TB by Quantiferon Gold Lab Routine Crohn's disease of both small and large intestine with intestinal obstruction (CMS-HCC) 1 Occurrences starting 06/09/2023 until 06/08/2024 [employer] Work Phone: Comment on above: 1 Occurrences starti ng 06/09/2023 until 06/08/2024 Neisseria gonorrhoea e DNA [Presence] in Unspecified specimen by ROBERT with probe detection Neisseria gonorrhea DNA probe, direct Lab Routine STD exposure Ordered: 03/17/2024 [facility] Comment on above: Ordered: 03/17/2024 End: 02-07-2023 Oxygen Therapy - Maintain SpO2: 90% or greater; *MIXER OPERATOR HOT METAL Guidelines for O2: Yes; Document: [email or web address] Software/EPIC_Reference/Or ders/Respiratory%20Care% 20Guidelines/CPG%20Oxyge n%[email or web address].pdf Oxygen Therapy - Maintain SpO2: 90% or greater; *MIXER OPERATOR HOT METAL Guidelines for O2: Yes; Document: [email or web address] Software/EPIC_Reference/Or ders/Respiratory%20Care% 20Guidelines/CPG%20Oxyge n%[email or web address].pdf Respiratory Care STAT Iron [...] persistent 1 Occurrences starting 02/20/2023 until 02/21/2024 [employer] Work Phone: Comment on above: 1 Occurrences starti ng 02/20/2023 until 02/21/2024 Reagin Ab [Presence] in Serum by RPR RPR Lab Routine Missed menses , unspecified gestational age Ordered: 01/23/2024 [facility] Comment on above: Ordered: 01/23/2024 Rubella antibody, IgG Rubella an tibody, IgG Lab Routine Missed menses , unspecified gestational age Ordered: 01/23/2024 [facility] Comment on above: Ordered: 01/23/2024 SURESWAB(R) ADVANCED VAGINITIS PLUS, TMA SURESWAB(R) ADVANCED VAGINITIS PLUS, TMA Pathology and Cytology Routine Vaginal discharge Ordered: 03/17/2024 [facility] Work Phone: Comment on above: Ordered: 03/17/2024 End: 02-02-2025 Thiopurine Metabs Thiopurine Metabs Lab Routine Therapeutic drug monitoring 1 Occurrences starting 02/03/2024 until 02/02/2025 [facility] Work Phone: Comment on above: 1 Occurrences starti ng 02/03/2024 until 02/02/2025 Payers Date Payer Category Payer Medicaid [employer] [facility] [id number] 2022-Present [address] [place] [address] [id number] 2022 Medicaid [id number] 2021 Commercial Managed C are - POS [employer] [id number] 2021 Managed Care O (unspecified) [employer] [id number] 2021 Private Health Insurance EDU SORENSEN POS II [id number] 2021-Present [phone] [address] [place] [address] [id number] [id number] 1989 Unknown [id number] 2.16.840.1.408258.3.579. 2.593 1989 Unknown [id number] 2.16.840.1.648348.3.579. 2.1286 1989 Unknown [id number] 2.16.840.1.063389.3.579. 2.6 1989 Unknown [id number] 2.16.840.1.191368.3.579. 2.1286 1989 Unknown [id number] 2.16.840.1.476784.3.579. 2.1286 1989 Unknown [id number] 2.16.840.1.416909.3.579. 2.1286 1989 Unknown [id number] 2.16.840.1.802108.3.579. 2.1286 1989 Unknown [id number] 2.16.840.1.844947.3.579. 2.1286 1989 Unknown [id number] 2.16.840.1.382978.3.579. 2.1286 1989 Unknown [id number] 2.16.840.1.230548.3.579. 2.1286 1989 Unknown [id number] 2.16.840.1.135186.3.579. 2.1286 1989 Unknown [id number] 2.16.840.1.144213.3.579. 2.1286 1989 Unknown [id number] 2.16.840.1.496268.3.579. 2.1286 1989 Unknown [id number] 2.16.840.1.607798.3.579. 2.1286 1989 Unknown [id number] 2.16.840.1.887574.3.579. 2.1286 1989 Unknown [id number] 2.16.840.1.027603.3.579. 2.1286 1989 Unknown [id number] 2.16.840.1.544919.3.579. 2.1286 1989 Unknown [id number] 2.16.840.1.410647.3.579. 2.1286 1989 Unknown [id number] 2.16.840.1.980209.3.579. 2.1286 1989 Unknown [id number] 2.16.840.1.918466.3.579. 2.1286 1989 Unknown [id number] 2.16.840.1.628929.3.579. 2.1286 1989 Unknown [id number] 2.16.840.1.701159.3.579. 2.9 1989 Unknown [id number] 2.16.840.1.286093.3.579. 2.9 1989 Unknown [id number] 2.16.840.1.905454.3.579. 2.9 1989 Unknown [id number] 2.16.840.1.456194.3.579. 2.1259 1959 Private Health Insurance [id number] Social History Date Type Detail Facility Start: 12-27-2021 End: 10-09-2022 Tobacco smoking status [facility] [facility] Start: 12-27-2021 End: 10-09-2022 Tobacco use and exposure Smokeless tobacco non-user [facility] Start: 02-06-2023 End: 02-20-2023 Alcohol intake Current non-drinker of alcohol (finding) [facility] Start: 02-29-2020 End: 02-20-2023 History of Social function [facility] Start: 02-29-2020 End: 02-20-2023 Tobacco use panel [facility] Adolescent depressio n screening assessment 11 [facility] Start: 1990 Sex Assigned At Not on file [facility] Start: 09-13-2014 Sex Female (finding) [facility] Start: 11-19-2023 [facility] Start: 01-23-2024 End: 03-17-2024 Alcoholic beverage intake Lifetime non-drinker (finding) [facility] Start: 1990 Sex assigned at Female [facility] Start: 09-12-2022 Gender identity Identifies as female gender (finding) [facility] Start: 09-12-2022 Sexual orientation Heterosexual (finding) [facility] Goals Date Patient Goal Desired Activity /State Personal health goal Comment on above: Formatting of this n ote might be different from the original. Evaluation of progress towards goal: patient to discharge to home. Clinical Notes 02-06-2023 to 03-17-2024 SIMI Frazier - 03/17/2024 10:30 AM Vince Barba RN - 03/08/2024 10:00 AM Bart Zarco RN - 03/08/2024 10:00 AM Vince Barba RN - 03/08/2024 10:00 AM ESTPatient Instructions Note Date & Type Note Facility 03-17-2024 History of Present illness Narrative Reason for Appointment: Patient ID: Juan Luis Storey is a 33 y.o. female who presents for Routine Visit Patient presents today for Return OB appointment.and culutres MEDICATIONS Current Outpatient Medications Medication Instructions azaTHIOprine (Imuran) 50 MG tablet TAKE 3 TABLETS BY MOUTH IN THE MORNING cholecalciferol (VITAMIN D-3) 1,000 Units Cobalamin Combinations (B-12) 100-5000 MCG sublingual tablet B12 folic acid (FOLVITE) 1,000 mcg, Oral, Every morning inFLIXimab-dyyb (Inflectra) 100 MG injection 5 mg/kg, Intravenous ALLERGIES Allergies Allergen Reactions Sertraline Diarrhea Pt [...] Appearance: Normal appearance. She is normal weight. HENT: Head: Normocephalic. Cardiovascular: Rate and Rhythm: Normal rate. Pulses: Normal pulses. Pulmonary: Effort: Pulmonary effort is normal. Breath sounds: Normal breath sounds. Abdominal: Palpations: Abdomen is soft. Musculoskeletal: General: Normal range of motion. Neurological: General: No focal deficit present. Mental Status: She is alert and oriented to person, place, and time. Psychiatric: Mood and Affect: Mood normal. Behavior: Behavior normal. Thought Content: Thought content normal. Judgment: Judgment normal. Vitals and nursing note reviewed. Vitals: Estimated body mass index is 29.31 kg/m as calculated from the following: Height as of 09/15/23: 5' 5 . Weight as of this encounter: 176 lb 1.9 oz. BP: 116/70 Patient's last menstrual period was 11/05/2023. ASSESSMENT & PLAN ICD-10-CM 1. Second trimester Z34.92 Alpha fetoprotein, maternal Alpha fetoprotein, maternal 2. 19 weeks gestation of Z3A.19 Alpha fetoprotein, maternal Alpha fetoprotein, maternal 3. Vaginal discharge N89.8 SURESWAB(R) ADVANCED VAGINITIS PLUS, TMA 4. STD exposure Z20.2 CHLAMYDIA TRACHOMATIS (GENITO/STI) Neisseria gonorrhea DNA probe, direct 5. Screening, , for anatomic survey Z36.89 US OB 14+ weeks anatomy scan Return OB/Annual Exam: Patient presents today for a cultures and routine obstetrics appointment. Patient is currently 19w0d . Patient is doing well and states she has no complaints. cultures was obtained without difficulty and patient was given [facility] order to have obtained. Orders Placed This Encounter Procedures US OB 14+ weeks anatomy scan CHLAMYDIA TRACHOMATIS (GENITO/STI) Neisseria gonorrhea DNA probe, direct Alpha fetoprotein, maternal Follow Up: Patient is to return to our office in 4 weeks for routine OB appointment Documented by SIMI Frazier on behalf of: SIMI Frazier documented in this encounter [facility] 03-08-2024 History of Present illness Narrative Infusion start time: 1040 Patient here for Avsola infusion. Patient denies any recent infections or on antibiotics, open wounds, recent/future surgery, vaccinations or insurance changes. IV started with 22g needle to left forearm by Yaquelin Barba RN x1 attempt. Patient tolerated well. Avsola Lot# [id number] 2vials Exp- 09/10/2027 Lot#[id number] 2 vials Exp08/10/2027 Time out performed prior to medication administration. Name, , medication(s) verified 10:40 am Time out performed with Yaquelin STREET. Avsola to be mixed and administered to patient per current treatment plan orders 1240 patient infusion complete. IV flushed with 10 ml normal saline. IV discontinued, catheter intact, vitals WNL. Patient tolerated infusion well documented in this encounter [facility] 02-18-2024 History of Present illness Narrative Reason [...] nursing note reviewed. Exam conducted with a astronomy instructor present. Vitals: Estimated body mass index is [...] or undercooked meat, and stay away from [facility]. Patient has been consulted regarding any [...] Parish Valdez DO documented in this encounter [facility] 01-23-2024 History of Present illness Narrative [...] Past Surgical History: Procedure Laterality Date COLONOSCOPY 2017 Allergies Allergen Reactions Sertraline Diarrhea Pt reports [...] or undercooked meat, and stay away from [facility]. Patient has also been advised to [...] Veronica Klein LPN documented in this encounter [facility] 12-17-[address] Montiel, Patient called stating she took a urine test this past Friday and it was positive. She receives Inflectra 400 mg every 6 weeks for her Crohn's. She also takes Imuran 150 mg po daily. Ilekasha is inquiring if she can continue taking [...] send a letter to the family doctor/PCP, Personal Health Coach, and roll filler advising against the use of live vaccines for the 1st 6 months of the baby's life and to monitor the baby closely for any signs of infection. Please send her the following as well: [email or web address] [email or web address] -[email or web address] I recommend an OV w me in 02/2024 or 03/2024 Please disregard notes below. Summary These recommendations are in accordance with the findings of the ongoing PIANO study, The [place] Consensus Statements for the Management of Inflammatory Bowel Disease in , and the clinical care pathway released by the AGA. - Johnathan Farr, Yady RA, Lobito CD. Drug Safety and Risk of Adverse Outcomes for Patients With Inflammatory Bowel Disease. Gastroenterology. 2017;152(2):451-462.e2. - Gastroenterology. 2016 Apr;150[3]:734-57 - Johnathan Farr, Rey C, Sherylo N, et al. Inflammatory bowel disease in clinical care pathway: a report from the [place] gastroenterological association [facility] project working group. Gastroenterology. 2019;156(5):7428-7640. Spoke with patient regarding recommendations, sent via H[employer]. Will call patient back when March schedule is out, she needs Mondays. documented in this encounter [facility] 12-17-[address] Montiel, Patient called stating she took a urine test this past Friday and it was positive. She receives Inflectra 400 mg every 6 weeks for her Crohn's. She also takes Imuran 150 mg po daily. Ziggynita is inquiring if she can continue taking her Imuran and Inflectra infusions? Please advise, thank you [facility] 12-17-2023 Telephone encounter Note Please let her [...] send a letter to the family doctor/PCP, Personal Health Coach, and roll filler advising against the use of live vaccines for the 1st 6 months of the baby's life and to monitor the baby closely for any signs of infection. Please send her the following as well: [email or web address]/blog/uroip-uhwjn-kaeyca-[email or web address]-[email or web address]-[email or web address]-[email or web address]-[email or web address] -[email or web address]-[email or web address]-[email or web address] I recommend an OV w me in 02/2024 or 03/2024 Please disregard notes below. Summary These recommendations are in accordance with the findings of the ongoing PIANO study, The [place] Consensus Statements for the Management of Inflammatory Bowel Disease in , and the clinical care pathway released by the AGA. - Johnathan Farr, Yady RA, Lobito CD. Drug Safety and Risk of Adverse Outcomes for Patients With Inflammatory Bowel Disease. Gastroenterology. 2017;152(2):451-462.e2. - Gastroenterology. 2016 Mar;150[3]:734-57 - Johnathan Farr, Rey C, Ama N, et al. Inflammatory bowel disease in clinical care pathway: a report from the [place] gastroenterological association [facility] project working group. Gastroenterology. 2019;156(5):0481-3040. [facility] 12-17-2023 Telephone encounter Note Spoke with patient regarding recommendations, sent via Hootsuite. Will call patient back when March schedule is out, she needs Mondays. [facility] 12-12-2023 History of Present illness Narrative Infusion start time: 10:50 am Patient here for Inflectra infusion. Patient denies any recent infections or on antibiotics, open wounds, recent/future surgery, vaccinations or insurance changes. 10:30 am IV started with 22g needle to right hand by JAD Arroyo x1 attempt. Patient tolerated well. Inflectra x 4 vials Lot# [id number] Exp- 04/09/2028 Time out performed prior to medication administration. Name, , medication(s) verified 11:50 am patient infusion complete. IV flushed with 10 ml normal saline. IV discontinued, catheter intact, vitals WNL. Patient tolerated infusion well documented in this encounter [facility] 12-01-2023 History of Present illness Narrative Images from the original note were not included. [facility] [address] [place] [phone] 12/01/2023 Chief Complaint Patient presents with [...] small and large intestine with intestinal obstruction ([facility]) Other Visit Diagnoses Iron deficiency - [...] me to participate in this patient's care. TERA CARBAJAL 12/01/2023 2:56 PM Total time spent was 30 minutes: Preparing to see the patient (e.g., review of tests) Obtaining and/or reviewing separately obtained history Performing a medically appropriate examination and/or evaluation Counseling and educating the patient/family/caregiver Ordering medications, tests, or procedures Referring and communicating with other health patient care manager (not separately reported) Documenting clinical information in the electronic or other health record Independently interpreting results (not separately reported) and communicating results to the patient/family/caregiver Care coordination (not separately reported) ---- Please note that portions of this note may have been generated using voice recognition admetricks dictation software. Although every effort was made to ensure the accuracy of any automated transcriptions, some errors may have occurred. TERA Carbajal 12/01/23 1502 [facility] Instructions TERA Carbajal - 12/01/2023 2:30 PM EDT Pending labs If iron is low, will order Injectafer IV If iron is low, will repeat labs in 3 months CBC-d iron panel ferritin If iron is normal, just follow up yearly as below Follow up yearly with labs same as above documented in this encounter [facility] 06-18-2023 Miscellaneous Notes Patient has missed the following appointments: 06/17/23 06/10/23 04/14/23 06/17/22 11/10/20 See other note for follow up documented in this encounter [facility] 06-18-2023 Telephone encounter Note Patient has missed the following appointments: 06/17/23 06/10/23 04/14/23 06/17/22 11/10/20 [facility] 06-18-2023 Telephone encounter Note See other note for follow up [facility] 06-10-2023 Miscellaneous Notes SANIYA Cheatham and Dr. Montiel, Patient was scheduled today for her Inflectra infusion; was a NO SHOW. She also no showed 04/14/23 Call placed to patient with no answer. Message left for patient to call office back in regards to rescheduling her infusion. Reviewing the chart it appears she has had multiple no shows even prior to this. Please send no-show / late cancellation fee notice and remind her of the no-show policy and that we are tracking this information. If she no-shows again, she may be discharged from the practice per office policy. Thank you. Patient called and rescheduled 06/18/23 Chaparrita, Patient NO SHOWED for her OV yesterday and did not come to her rescheduled infusion today (she NO SHOWED 06/10/23). No show policy letter sent via [employer] and certified mail. documented in this encounter [facility] 06-10-2023 Telephone encounter Note SANIYA Cheatham and Dr. Montiel, Patient was scheduled today for her Inflectra infusion; was a NO SHOW. She also no showed 04/14/23 Call placed to patient with no answer. Message left for patient to call office back in regards to rescheduling her infusion. [facility] 06-10-2023 Telephone encounter Note Reviewing the chart it appears she has had multiple no shows even prior to this. Please send no-show / late cancellation fee notice and remind her of the no-show policy and that we are tracking this information. If she no-shows again, she may be discharged from the practice per office policy. Thank you. [facility] 06-10-2023 Telephone encounter Note Patient called and rescheduled 06/18/23 [facility] 06-10-2023 Telephone encounter Note Chaparrita, Patient NO SHOWED for her OV yesterday and did not come to her rescheduled infusion today (she NO SHOWED 06/10/23). [facility] 06-10-2023 Telephone encounter Note No show policy letter sent via [employer] and certified mail. [facility] 04-21-2023 Miscellaneous Notes Due for OV There [...] at 10:30 am documented in this encounter [facility] 04-21-2023 Telephone encounter Note Due for OV [facility] 04-21-2023 Telephone encounter Note There is nothing available for a recheck OV , can we use a new patient slot? [facility] 04-21-2023 Telephone encounter Note Yes that's ok [facility] 04-21-2023 Telephone encounter Note Left message for patient to call and schedule. [facility] 04-21-2023 Telephone encounter Note Message left for patient to call back. [facility] 04-21-2023 Telephone encounter Note Patient is scheduled with Meaghan on June 16 at 11:15 am. Infusion is scheduled on June 09 at 10:30 am [facility] 04-21-2023 History of Present illness Narrative 1020 am Patient here for Inflectra infusion. Patient denies any recent infections, open wounds, recent/future surgery, or insurance changes . IV started with 22g needle to right hand by raf street x 1 attempt. Patient tolerated well. Inflectra x 4 vials Lot #[id number] Exp date 12/11/2027 Time out performed with Raf Delatorre RN. 400 mg of Inflectra to be mixed and administered to patient per current treatment plan orders. 1305 patient infusion complete. IV discontinued, catheter intact, vitals WNL. Patient tolerated infusion well documented in this encounter [facility] 04-14-2023 Miscellaneous Notes Patient missed the visit. RN called patient and RN rescheduled patient for 04/21/2023. documented in this encounter [facility] 04-14-2023 Telephone encounter Note Patient missed the visit. RN called patient and RN rescheduled patient for 04/21/2023. [facility] 03-31-2023 Miscellaneous Notes RN was told that patient is calling regarding her insurance. The phone call was then transferred back to the infusion room. Patient states she lost her secondary insurance and wanted to know to what the amount she will be responsible for. RN informed patient to call her insurance company to find out that information. documented in this encounter [facility] 03-31-2023 Telephone encounter Note RN was told that patient is calling regarding her insurance. The phone call was then transferred back to the infusion room. Patient states she lost her secondary insurance and wanted to know to what the amount she will be responsible for. RN informed patient to call her insurance company to find out that information. [facility] 02-20-2023 History of Present illness Narrative Images from the original note were not included. [address] [place] [phone] Patient: Juan Luis Storey Date of [...] morning. LYNDSEY ANDERS MD Family Medicine Physician [facility] Family Medicine / [facility] 02/20/23 This note was completed with voice recognition software. The document was reviewed for errors however some may still be present. Please do not hesitate to contact/Epic msg the author to verify any questions/concerns. documented in this encounter [facility] 02-17-2023 History of Present illness Narrative 1145 Patient here for Inflectra infusion. Patient denies any recent infections, open wounds, recent/future surgery, or insurance changes . Site cleansed with alcohol. IV started with 22g needle by Yaquelin Barba RN in right hand. Patient tolerated well. Lot # [id number] Exp 07/11/27 1422 patient infusion complete. IV discontinued at 1422. Patient tolerated infusion well. documented in this encounter [facility] 02-06-2023 History of Present illness Narrative [...] condition. documented in this encounter [facility] Evaluation note Diagnosis Crohn's disease of both small and large intestine with intestinal obstruction (CMS-HCC)- Primary [facility] Diagnosis Iron deficiency- Primary [...] unspecified documented in this encounter [facility] Diagnosis Crohn's disease of both small and large intestine with intestinal obstruction (CMS-HCC)- Primary documented in this encounter [facility]* Diagnosis 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 Other specified intestinal malabsorption Iron deficiency anemia, unspecified documented in this encounter [facility]* Diagnosis Missed menses , unspecified gestational age Encounter for supervision of normal first in first trimester headache in first trimester documented in this encounter [facility]* Diagnosis Therapeutic drug monitoring- Primary Encounter for therapeutic drug monitoring documented [facility] this encounter [facility]* Diagnosis Second trimester state, incidental 15 weeks gestation of H/O oligohydramnios in prior , currently documented in this encounter [facility]* Diagnosis Crohn's disease of both small and large intestine with intestinal obstruction (CMS-HCC)- Primary documented in this encounter [facility]* Diagnosis Second trimester state, incidental 19 weeks gestation of Vaginal discharge Leukorrhea, not specified as infective STD exposure Screening, , for anatomic survey Encounter for anatomic survey documented in this encounter [facility]* Diagnosis 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 deficiency anemia, unspecified Iron malabsorption Other specified intestinal malabsorption documented in this encounter [facility]* Diagnosis Crohn's disease of both small and large intestine with intestinal obstruction (CMS-HCC)- Primary documented in this encounter [facility]* Diagnosis Crohn's disease of both small and large intestine with intestinal obstruction (CMS-HCC)- Primary [facility] Diagnosis Reactive airway disease with acute exacerbation, unspecified asthma severity, unspecified whether persistent- Primary Shortness of breath COVID-19 Sinusitis, unspecified chronicity, unspecified location [facility] [...] section and content) DATE CREATED AUTHOR 08/05/2017 [facility] DATE CREATED AUTHOR AUTHOR'S ORGANIZ ATION 06/26/2022 [facility] DATE CREATED AUTHOR AUTHOR'S ORGANIZ ATION 09/19/2023 [facility] DATE CREATED AUTHOR AUTHOR'S ORGANIZ ATION [facility] DATE CREATED AUTHOR AUTHOR'S ORGANIZ ATION 03/09/2024 [facility] DATE CREATED AUTHOR AUTHOR'S ORGANIZ ATION 03/19/2024 [facility] EPIC Care Teams (unrecognized sec tion and content) Fishing Guide Relationship Specialty Start Date End Date Hialry Aviles APRN-CNP [address] [place] [address] PCP - General Family Medicine 12/26/22 Fishing Guide Relationship Specialty Start Date End Date Hilary Aviles APRN-CNP [address], [place] [address] PCP - General Family Medicine 12/26/22 Fishing Guide Relationship Specialty Start Date End Date Hilary Aviles APRN-CNP [address], [place] [address] PCP - General Family Medicine 12/26/22 Fishing Guide Relationship Specialty Start Date End Date Hilary Aviles APRN-CNP [address], [place] [address] PCP - General Family Medicine 12/26/22 Fishing Guide Relationship Specialty Start Date End Date Hilary Aviles APRN-CNP [address], [place] [address] PCP - General Family Medicine 12/26/22 Fishing Guide Relationship Specialty Start Date End Date Hilary Aviles APRN-CNP [address], [place] [address] PCP - General Family Medicine 12/26/22 Fishing Guide Relationship Specialty Start Date End Date [facility]ary [facility]iles [facility] [address], [place] [address] PCP - General Family Medicine 01/03/24 Fishing Guide Relationship Specialty Start Date End Date Hilary Aviles [facility] [address], [place] [address] PCP - General Family Medicine 01/03/24 Fishing Guide Relationship Specialty Start Date End Date Hilary Aviles MD [address] [place] [address] Referring Physician Nurse Practitioner 10/08/22 Fishing Guide Relationship Specialty Start Date End Date Hilary Aviles, [facility] [address], [place] [address] PCP - General Family Medicine 01/03/24 Fishing Guide Relationship Specialty Start Date End Date Hilary Aviles MD [address] [place] [address] Referring Physician Nurse Practitioner 10/08/22 Fishing Guide Relationship Specialty Start Date End Date Hilary Aviles MD [address] [place] [address] Referring Physician Nurse Practitioner 10/08/22 Fishing Guide Relationship Specialty Start Date End Date Hilary Aviles MD [address] [facility], [place] [address] Referring Physician Nurse Practitioner 10/08/22 Fishing Guide Relationship Specialty Start Date End Date Hilary Aviles APRN-ENGRAVER JEWELRY [address], [place] [facility] [place], [place] [address] PCP - General Family Medicine 01/03/24 Fishing Guide Relationship Specialty Start Date End Date Hilary Aviles MD [address] [place] [address] [address] [place] [address] Referring Physician Nurse Practitioner 10/08/22 Fishing Guide Relationship Specialty Start Date End Date Hilary Aviles MD [address] [place] [address] [address] [place] [address] Referring Physician Nurse Practitioner 10/08/22 Fishing Guide Relationship Specialty Start Date End Date Hilary Aviles MD [address] [place] [address] [address] [place] [address] Referring Physician Nurse Practitioner 10/08/22 Fishing Guide Relationship Specialty Start Date End Date Hilary Aviles APRN-ENGRAVER JEWELRY [address], Matthew [place] [facility] [address] PCP - General Family Medicine 12/26/22 Fishing Guide Relationship Specialty Start Date End Date Hilary Aviles APRN-ENGRAVER JEWELRY [address], [place] [address] PCP - General Family Medicine 12/26/22 Fishing Guide Relationship Specialty Start Date End Date Hilary Aviles APRN-LUIGI [address] [place], [place] [address] PCP - General [facility] 12/26/22 Fishing Guide Relationship Specialty Start Date End Date Hilary Aviles APRN-CNP [address], [facility] [place] [address] PCP - General Family Medicine 12/26/22 Reason for Visit (unrecogniz ed section and content) Reason Comments Outpatient Infusion [facility] Specialty Diagnoses / Procedures Referred By Carroll juan Referred To Contact Gastroenterology Diagnoses Crohn's disease of both small and large intestine with intestinal obstruction Procedures AR INFLIXIMAB INJECTION Referral ID Status Reason Start Date Expiration Date V isits Requested Visits Authorized [id number] Authorized 04/01/2023 04/01/2024 9 9 Reason Comments Follow-up Specialty Diagnoses / Procedures Referred By Carroll juan Referred To Contact Gastroenterology Diagnoses Crohn's disease of both small and large intestine with intestinal obstruction Procedures AR INFLIXIMAB INJECTION Reason Comments Amenorrhea Reason Comments [...] INFLIXIMAB-AXXQ, BIOSIMILAR, (AVSOLA), 10 MG INFUSION Hilary Aviles APRN-LUIGI [address] [facility] B, [place] [address] Phone: tel: fax: [facility] [address] [address] Phone: tel: fax: Referral ID Status Reason Start Date Expiration Date V isits Requested Visits Authorized [id number] Authorized 01/20/2024 01/18/2025 9 9 Reason Comments Outpatient Infusion Injectafer Specialty Diagnoses / Procedures Referred By Contac t Referred To Contact Diagnoses Iron deficiency anemia due to chronic blood loss Iron deficiency anemia, unspecified Iron malabsorption Procedures AR INJ FERRIC CARBOXYMALTOS 1MG Mj Pizarro MD [address] [place] [address] [facility] Med On[facility] [address] [place] [address] Referral ID Status Reason Start Date Expiration Date V isits Requested Visits Authorized [id number] Authorized 01/24/2023 07/23/2023 2 2 Specialty Diagnoses / Procedures Referred By Contac t Referred To Contact Gastroenterology Diagnoses Crohn's disease of both small and large intestine with intestinal obstruction Inflectra 5mg/kg every 6 weeks, Auth'd for 9 visits .[id number], SA/Crohns Procedures AR INFLIXIMAB INJECTION INFUSION Hilary Aviles, REGIONAL DIRECTOR OF ADMISSIONS-ENGRAVER JEWELRY [address], [place] [address] [facility] [address] [address] Referral ID Status Reason Start Date Expiration Date V isits Requested Visits Authorized [id number] Pending Review 07/26/2022 07/26/2023 9 9 Reason Comments Asthma FOR RECORDS PERTAINING TO PATIENTS WHO ARE [...] BE BASED ON THE PRIMARY CLINICAL RECORDS. [employer] [facility]. provides no warranty or guarantee of the accuracy or completeness of information in this document.
== END 2024-03-24 10:39 | disposition home or self-care (01) ==
LOC: US 10:38
PROVIDERS: PCP Nurse Practitioner; Visit Provider Obstetrics & Gynecology
DX: Z36.89 Encounter for other specified antenatal screening (principal); Z34.92 Encounter for supervision of normal pregnancy, unspecified, second trimester; Z3A.19 19 weeks gestation of pregnancy
CPT/HCPCS: 76805; 76817

== ENCOUNTER 2024-03-24 11:22 | Outpatient (OUT) | payer OTHER, SELFPAY ==
--- OUTSIDE RECORDS SUMMARY | 2024-03-24 11:41 | XMS_ITS | CCD ---
Author Organization [facility] Care Team Providers Care Gift Packer Name Role Phone ADAMOWICZ, SAMARA J Unavailable Unavailable ADAMOWICZ, SAMARA J Unavailable Unavailable ADAMOWICZ, SAMARA J Unavailable Unavailable ADAMOWICZ, SAMARA J Unavailable Unavailable ADAMOWICZ, SAMARA J Unavailable Unavailable ADAMOWICZ, SAMARA J Unavailable Unavailable ADAMOWICZ, SAMARA J Unavailable Unavailable ADAMOWICZ, SAMARA J Unavailable Unavailable SEBASTIAN HERRING Attending Unavailable SEBASTIAN HERRING Consulting Unavailable SEBASTIAN HERRING Admitting [facility] Unavailable Traci CHIEF RISK OFFICER-IGNITION SPECIALIST, Hilary A Primary Care Provi lazarus HILARY [...] TRACI, HILARY A Primary Care Unavailable Traci CHIEF RISK OFFICER-IGNITION SPECIALIST, Hilary A Primary Care Provi lazarus Hilary Aviles MD Unavailable [phone] MJ PIZARRO Referring Unavailable TRACI, HILARY A [...] Care Unavailable TRACI, HILARY A Referring Unavailable TRAIC, HILARY A Primary Care Unavailable TRACI, HILARY [...] sources) Sertraline; Translations: [SERTRALINE] Drug Allergy 11-09-2018 [facility] Medications Current Medications Medication Drug Class(es) Dates Sig (Normalized) Sig (Original) [id number] 200 actuat albuterol 0.09 mg/actuat metered dose [...] of major depressive disorder without prior episode ([facility]) Take 1.5 tablets (30 mg total) by [...] tablet B12 Active cyanocobalamin/f olic acid (vitamin V68-vehth acid) 1,000-400 mcg lozenge B12 Active 12 [...] RECURRENT VAGINITIS (HTRX)on 03-18-2024 ATOPOBIUM VAGINAE 0 [facility] Healthcare ATOPOBIUM VAGINAE Not detected [facility] Healthcare BVAB 2,3 (BACTERIAL VAGINOSIS ASSOCIATED BACTERIA 2, 3); MOBILUNCUS SPP 0 [facility] BVAB 2,3 (BACTERIAL VAGINOSIS ASSOCIATED BACTERIA 2, [...] [facility] US OB CERVICAL LENGTHon 02-12 [place] [address] Ultrasound Report Signed Patient: JUAN LUIS STOREY MR#: [id number] : 1990 Acct:[id number] Age/Sex: 33 / F ADM Date: 03/11/24 Loc: US Attending Dr: Parish Valdez D.O. Ordering Physician: Parish Valdez D.O. Date of Service: 03/11/24 Procedure(s): US OB cervical length Accession Number(s): [id number] cc: Parish Valdez D.O.; Hilary Aviles NP [place] [address] Patient Name: JUAN LUIS STOREY MRN: [facility]:[id number] date: 1990 Sex: F Assigned Patient Location: US Current Patient Location: US Accession/Order Number: [id number] Exam Date: 03/11/2024 10:15 Report Date: 03/11/2024 [...] Signed By: 03/11/24 1056 DD/ 1053 TD/TT: Cd Reactor Operator Head: [facility] Radiology, Radiologi MD perla - 03/11/2024 [place] [address] Ultrasound Report Signed Patient: JUAN LUIS STOREY MR#: [id number] : 1990 Acct:[id number] Age/Sex: 33 / F ADM Date: 03/11/24 Loc: US Attending Dr: Parish Valdez D.O. Ordering Physician: Parish Valdez D.O. Date of Service: 03/11/24 Procedure(s): US OB cervical length Accession Number(s): [id number] cc: Parish Valdez D.O.; Hilary Aviles NP [place] [address] Patient Name: JUAN LUIS STOREY MRN: [id number] date: 1990 Sex: F Assigned Patient Location: US Current Patient Location: US Accession/Order Number: [id number] Exam Date: 03/11/2024 10:15 Report Date: 03/11/2024 [...] Signed By: 03/11/24 1056 DD/ 105 TD/TT: Cd Reactor Operator Head: [facility] Radiology Study observation (narrative) [facility] US OB CERVICAL LENGTHOrdered By: Radiologist Radiology on 03-11-2024 [facility] Work Phone: Urinalysis macro (dipstick) panel (U)on 02-18-2024 Bilirubin, UA Negative Negative - 4(70) +++ mg/dL [facility] Blood, UA Positive Negative - 50 Enrrique/mcL [facility] Comment on above: trace Clarity, UA Clear [facility] Color, UA Yellow [facility] Glucose, UA Negative Negative - 2000(110) ++++ mg/dL [facility] Interpretation and review of laboratory results Abnormal [facility] Ketones, UA Positive Negative - 160(16) ++++ mg/dL [facility] Comment on above: trace Leukocytes, UA Trace Negative - 500+++ Cam/mcL [facility] Nitrite, UA Negative Negative - Positive [facility] pH, UA 7 5 - 9 [facility] Protein, UA Positive Negative - 2000(20) ++++ mg/dL [facility] Comment on above: 30 Spec Grav, UA 1.03 1 - 1.03 [facility] Urobilinogen, UA 1.0 0.2 - 12 mg/dL [facility] ALL CBC WITH AUTO DIFFon BASOPHILS ABSOLUTE AUTO 0 [facility] Basophils/100 WBC (Bld) 0.2 % 0.2 - 2.0 % [facility] Eosinophils/100 WBC (Bld) 0.9 % 0.9 - 7.0 % [facility] Erythrocyte distribution width (RBC) [Ratio] 12.5 % 11.0 - 15.0 % [facility] Hematocrit (Bld) [Volume fraction] 35.3 % Low 36.0 - 48.0 % [facility] Hemoglobin (Bld) [Mass/Vol] 11.8 g/dL Low 12.0 - 16.0 g/dL [facility] IMMATURE GRANULOCYTES ABS AUTO 0.03 [facility] Immature granulocytes/100 WBC (Bld) 0.4 % 0.0 - 0.5 % [facility] Interpretation and review of laboratory results Abnormal [facility] LYMPHOCYTES ABSOLUTE AUTO 2.4 [facility] Lymphocytes/100 WBC (Bld) 29.2 % 20.5 - 60.0 % [facility] MCH (RBC) [Entitic mass] 32 pg 26.7 - 34.0 pg [facility] MCHC (RBC) [Mass/Vol] 33.4 g/dL 29.9 - 35.2 g/dL [facility] MCV (RBC) [Entitic vol] 95.7 fL 81.0 - 99.0 fL [facility] MONOCYTES ABSOLUTE AUTO 0.5 [facility] Monocytes/100 WBC (Bld) 6.5 % 1.7 - 12.0 % [facility] NEUTROPHILS ABSOLUTE AUTO 5.1 [facility] Neutrophils/100 WBC (Bld) 62.8 % 43.0 - 75.0 % [facility] Platelet mean volume (Bld) [Entitic vol] 12 fL 9.5 - 13.5 fL [facility] TBH EO # 0.1 [facility] TB PLT 194 [facility] RBC 3.69 Low [facility] WBC 8.2 [facility] BASIC METABOLIC PANLon 01-25 Anion gap [Moles/Vol] 9 mmol/L Normal 5-15 [facility] Comment on above: Performed By: #### C ILEANA CARLOS, 1988-06, LIVR, 2131-10, 72732-6, 88123-0 #### [facility] ([id number]) [address] [place] [address] #### THMET #### [facility] ([id number]) [address] [place] [address], Calcium [Mass/Vol] 8.6 mg/dL Normal 8.5-10.5 [facility] Comment on above: Performed By: #### ILEANA PITTMAN, 1988-06, LIVR, 2131-10, 19899-8, 36779-7 #### [facility] ([id number]) [address] [place] [address] [address] [place] [address] #### THMET #### [facility] ([id number]) [address] [place] [address], Chloride [Moles/Vol] 104 mmol/L Normal 98-109 [facility] Comment on above: Performed By: #### ILEANA PITTMAN, 1988-06, LIVR, 2131-10, 37336-7, 70686-1 #### [facility] ([id number]) [address] [place], [place] [address], [address] [place] [address] #### THMET #### [facility] ([id number]) [facility]0 [facility], CO2 [Moles/Vol] 21 mmol/L Low 22-32 [facility] Comment on above: Performed By: #### C BREANNA, BMP, 1988-06, LIVR, 2131-10, 80812-3, 92965-3 #### [facility] ([id number]) [address] [facility], [address] [place] [address] #### THMET #### [facility] ([id number]) [address] [place] [address], Creatinine [Mass/Vol] 0.56 mg/dL Normal 0.40-1.00 [facility] Comment on above: Result Comment: METH OD TRACEABLE TO IDMS STANDARD Performed By: #### C BREANNA BMP, 1988-06, LIVR, 2131-10, 26798-8, 60184-7 #### [facility] ([id number]) [address] [place] [address], [address] [place] [address] #### THMET #### [facility] ([id number]) [address] [place] [address], eGFR (CKD-EPI) NON-RACE DEPENDENT >90 Normal >59 [facility] Comment on above: Result Comment: Reported eGFR is based on the CKD-EPI 2020 equation that does not use a race coefficient. Performed By: #### C BC, BMP, 1988-06, LIVR, 2131-10, 11345-4, 53518-9 #### [facility] ([id number]) [address] [place] [address], [address] [place] [address] #### THMET #### [facility] ([id number]) [address] [place] [address], Glucose [Mass/Vol] 73 mg/dL Normal 65-99 [facility] Comment on above: Performed By: #### C BC, BMP, 1988-06, LIVR, 2131-10, 23220-7, 32676-1 #### [facility] ([id number]) [address] [place] [address] #### THMET #### [facility] ([id number]) [address] [place] [address], Potassium [Moles/Vol] 3.8 mmol/L Normal 3.5-5.0 [facility] Comment on above: Performed By: #### C BC, BMP, 1988-06, LIVR, 2131-10, 51184-6, 54227-8 #### [facility] ([id number]) [address] [place] [address] #### THMET #### [facility] ([id number]) [address] [place] [address], Sodium [Moles/Vol] 134 mmol/L Normal 134-146 [facility] Comment on above: Performed By: #### C BC, BMP, 1988-06, LIVR, 2131-10, 78138-1, 49484-1 #### [facility] ([id number]) [address] [place] [address] #### THMET #### [facility] ([id number]) [address] [place] [address], Urea nitrogen [Mass/Vol] 6 mg/dL Normal 5-23 [facility] Comment on above: Performed By: #### C BC, BMP, 1988-06, LIVR, 2131-10, 06660-8, 83875-4 #### [facility] ([id number]) [address] [place] [address] #### THMET #### [facility] ([id number]) [address] [place] [address], COMPLETE BLOOD COUNTon 01-25 Erythrocyte distribution width (RBC) [Ratio] 13.7 % Normal 11.5-15.0 [facility] Comment on above: Performed By: #### C ILEANA CARLOS, 1988-06, LIVR, 2131-10, 74170-9, 78795-3 #### [facility] ([id number]) [address], [address] [place] [address] #### THMET #### [facility] ([id number]) [address] [facility], Hematocrit (Bld) [Volume fraction] 38.5 % Normal 35-47 [facility] Comment on above: Performed By: #### C ILEANA CARLOS, 1988-06, LIVR, 2131-10, 80601-1, 06616-8 #### [facility] ([id number]) [address] [facility], [address] [place] [address] #### THMET #### [facility] ([id number]) [address] [place] [address], Hemoglobin (Bld) [Mass/Vol] 12.8 g/dL Normal 11.7-15.5 [facility] Comment on above: Performed By: #### C ILEANA CARLOS, 1988-06, LIVR, 2131-10, 17772-7, 23728-6 #### [facility] ([id number]) [address], [address] [place] [address] #### THMET #### [facility] ([id number]) [address] [facility], MCH (RBC) [Entitic mass] 32.5 pg Normal 27-34 [facility] Comment on above: Performed By: #### C ILEANA CARLOS, 1988-06, LIVR, 2131-10, 02658-9, 49505-3 #### [facility] ([id number]) [address], [address] [place] [address] #### THMET #### [facility] ([id number]) [address] [facility], MCHC (RBC) [Mass/Vol] 33.3 g/dL Normal 32-36 [facility] Comment on above: Performed By: #### C ILEANA CARLOS, 1988-06, LIVR, 2131-10, 87390-9, 49332-1 #### [facility] ([id number]) [address] [place] [address], [facility] [address] [place] [address] #### THMET #### [facility] ([id number]) [address] [facility], MCV (RBC) [Entitic vol] 98 fL Normal 80-100 [facility] Comment on above: Performed By: #### C ILEANA CARLOS, 1988-06, LIVR, 2131-10, 46270-3, 92599-6 #### [facility] ([id number]) [address] [place] [address], [place] [address] #### THMET #### [facility] ([id number]) [address] [facility], Platelet mean volume (Bld) [Entitic vol] 11.2 fL Normal 7-12 [facility] Comment on above: Performed By: #### C ILEANA CARLOS, 1988-06, LIVR, 2131-10, 30084-1, 62047-0 #### [facility] ([id number]) [address] [place] [address], [address] [place] [address] #### THMET #### [facility] ([id number]) [address] [facility], Platelets (Bld) [#/Vol] 108 10*3/uL Low 150-450 [facility] Comment on above: Performed By: #### ILEANA PITTMAN, 1988-06, LIVR, 2131-10, 19811-6, 12825-3 #### [facility] ([id number]) [address] [place] [address], [address] [address] #### THMET #### [facility] ([id number]) [address] [place] [address], RBC COUNT 3.95 X10E12/L Normal 3.80-5.20 [facility] Comment on above: Performed By: #### C BREANNA, BMP, 1988-06, LIVR, 2131-10, 40962-2, 60892-6 #### [facility] ([id number]) [address] [place] [address], [address] [address] #### THMET #### [facility] ([id number]) [address] [place] [address], WBC (Bld) [#/Vol] 7.2 10*3/uL Normal 4.0-11.0 [facility] Comment on above: Performed By: #### C BREANNA BMP, 1988-06, LIVR, 2131-10, 80757-4, 44605-0 #### [facility] ([id number]) [address] [place] [address], [address] [address] #### THMET #### [facility] ([id number]) [address] [place] [address], CRP [Mass/Vol]on 01-26-2024 C REACTIVE PROTEIN 0.7 mg/dL Normal 0.000-0.744 [facility] Comment on above: Performed By: #### C BREANNA, BMP, 1988-06, LIVR, 2131-10, 21060-1, 20977-9 #### [facility] ([id number]) [address] [place] [address] #### THMET #### [facility] ([id number]) [address] [place] [address], ESR Photometric method (Bld) [Velocity]on 01-26-2024 ESR, ERYTHROCYTE SEDIMENTATION RATE 1 mm/h Normal 0-20 [facility] Comment on above: Performed By: #### C BC, BMP, 1988-06, LIVR, 2131-10, 34667-9, 44368-4 #### [facility] ([id number]) [address] [facility], [address] [place] [address] #### THMET #### [facility] ([id number]) [address] [facility], LIVER PANELon 01-26-2024 Albumin [Mass/Vol] 3.7 g/dL Normal 3.2-5.3 [facility] Comment on above: Performed By: #### C BC, BMP, 1988-06, LIVR, 2131-10, 54406-9, 63443-2 #### [facility] ([id number]) [address] [facility], [address] [place] [address] #### THMET #### [facility] ([id number]) [address] [place] [address], ALP [Catalytic activity/Vol] 29 U/L Low 39-130 [facility] Comment on above: Performed By: #### C BC, BMP, 1988-06, LIVR, 2131-10, 38581-1, 94053-8 #### [facility] ([id number]) [address] [place] [address], [address] [place] [address] #### THMET #### [facility] ([id number]) [address] [place] [address], ALT [Catalytic activity/Vol] 8 U/L Normal 0-31 [facility] Comment on above: Performed By: #### C BC, BMP, 1988-06, LIVR, 2131-10, 98340-4, 22247-1 #### [facility] ([id number]) [address] [place] [address], [address] [place] [address] #### THMET #### [facility] ([id number]) [facility], AST [Catalytic activity/Vol] 19 U/L Normal 0-41 [facility] Comment on above: Performed By: #### C ILEANA CARLOS, 1988-06, LIVR, 2131-10, 89754-2, 03722-6 #### [facility] ([id number]) [address], [address] [place] [address] #### THMET #### [facility] ([id number]) [address] [facility], Bilirubin [Mass/Vol] 0.4 mg/dL Normal 0.3-1.2 [facility] Comment on above: Performed By: #### C ILEANA CARLOS, 1988-06, LIVR, 2131-10, 78492-5, 15367-9 #### [facility] ([id number]) [address] [facility], [address] [place] [address] #### THMET #### [facility] ([id number]) [address] [place] [address], Bilirubin.direct [Mass/Vol] 0.1 mg/dL Normal 0.0-0.4 [facility] Comment on above: Performed By: #### ILEANA PITTMAN, 1988-06, LIVR, 2131-10, 54969-7, 33434-1 #### [facility] ([id number]) [address], [address] [place] [address] #### THMET #### [facility] ([id number]) [address] [place] [address], Protein [Mass/Vol] 7.0 g/dL Normal 6.0-8.0 [facility] Comment on above: Performed By: #### ILEANA PITTMAN, 1988-06, LIVR, 2131-10, 61810-3, 29541-9 #### [facility] ([id number]) [address], [address] [place] [address] #### THMET #### [facility] ([id number]) [address] [facility], THIOPURINE METABOLITESon 6 THIOGUANINE Not performed Normal [facility] Comment on above: Result Comment: NOTE Thiopurine Metabolites, B was cancelled on 02/02/2024 at 16:27; Quantity not sufficient to test. Test Performed by: [facility] [address] [place] [address] Dog Track Kennel Manager: Celi Fernandez Ph.D.; CLIA# [id number] Performed By: #### C BCA, FEPR, 4 #### [facility] ([id number]) [address] [facility], [address] [place] [address] VITAMIN B12on 01-26-2024 Cobalamin (Vitamin B12) [Mass/Vol] 239 pg/mL Normal 180-914 [facility] Comment on above: Performed By: #### C BC, BMP, 1988-06, LIVR, 2131-10, 54341-8, 40462-8 #### [facility] ([id number]) [address] [facility], [address] [place] [address] #### THMET #### [facility] ([id number]) [address] [place] [address], Vitamin D+Metabolites [Mass/ Vol]on 01-26-2024 VITAMIN D 25 HYD TOT 10.1 ng/mL Low 30-100 [facility] Comment on above: Result Comment: Vitamin D status 25 [place] Vitamin D Deficiency <20 ng/mL Insufficiency 20-29 ng/mL Sufficiency 30-100 ng/mL Toxicity >100 ng/mL NOTE: A pediatric reference range has not been established by the bar machine operator of this kit. The [place] [employer] recommends a Vitamin D level of = or >20ng/mL in infants and children. Performed By: #### C BCA, FEPR, 2276-4 #### [facility] ([id number]) [address] [facility], [address] [place] [address] HCG ( test) Ql (U)o n 01-23-2024 Interpretation and review of laboratory results Abnormal [facility] Preg Test, Ur Positive Negative [facility] Urinalysis macro (dipstick) panel (U)on 01-23-2024 Bilirubin, UA Negative Negative - 4(70) +++ mg/dL [facility] Blood, UA Positive Negative - 50 Enrrique/mcL [facility] Clarity, UA Clear [facility] Color, UA Yellow [facility] Glucose, UA Negative Negative - 1999(110) ++++ mg/dL [facility] Interpretation and review of laboratory results Abnormal [facility] Ketones, UA Positive Negative - 160(16) ++++ mg/dL [facility] Leukocytes, UA Negative Negative - 500+++ Cam/mcL [facility] Nitrite, UA Negative Negative - Positive [facility] pH, UA 7 5 - 9 [facility] Protein, UA Trace Negative - 1999(20) ++++ mg/dL [facility] Spec Grav, UA 1.015 1 - 1.03 [facility] Urobilinogen, UA 1.0 0.2 - 12 mg/dL [facility] KAY FECAL OCCULT BLDon 01-02 Hemoglobin.gastroi ntestinal Ql (Stl) Negative Normal NEG [facility] Comment on above: Performed By: #### 2 335-8 #### [facility] ([id number]) [address] [place] [address], [place] [address] CBC AND AUTO DIFFon 12-01-19 ABSOLUTE BASOPHIL 0.0 X10E9/L Normal 0.0-0.2 [facility] Comment on above: Performed By: #### C EDWIN ARROYO, 6-4 #### [facility] ([id number]) [address] [facility], [address] [place] [address] ABSOLUTE NEUTROPHIL 1.9 X10E9/L Normal 1.5-6.6 [facility] Comment on above: Performed By: #### C SELIN ARROYOR, 64 #### [facility] ([id number]) [address], [address] [place] [address] Basophils/100 WBC (Bld) 0.5 % Normal [facility] Comment on above: Performed By: #### C CRUZ, FEPR, 4 #### [facility] ([id number]) [address], [address] [place] [address] Eosinophils (Bld) [#/Vol] 0.1 10*3/uL Normal 0.0-0.4 [facility] Comment on above: Performed By: #### Elizabeth ARROYO, FEPR, 2275-05 #### [facility] ([id number]) [address], [address] [place] [address] Eosinophils/100 WBC (Bld) 2.3 % Normal [facility] Comment on above: Performed By: #### Elizabeth BCA, FEPR, 2275-05 #### [facility] ([id number]) [address], [address] [place] [address] Erythrocyte distribution width (RBC) [Ratio] 13.3 % Normal 11.5-15.0 [facility] Comment on above: Performed By: #### Elizabeth BCA, FEPR, 2275-05 #### [facility] ([id number]) [address], [address] [place] [address] Hematocrit (Bld) [Volume fraction] 36.2 % Normal 35-47 [facility] Comment on above: Performed By: #### Elizabeth BCA, FEPR, 2275-05 #### [facility] ([id number]) [address], [address] [place] [address] Hemoglobin (Bld) [Mass/Vol] 12.8 g/dL Normal 11.7-15.5 [facility] Comment on above: Performed By: #### Elizabeth ARROYO, FEPR, 4 #### [facility] ([id number]) [address], [address] [place] [address] Lymphocytes (Bld) [#/Vol] 2.3 10*3/uL Normal 1.0-3.5 [facility] Comment on above: Performed By: #### Elizabeth ARROYO, FEPR, 2275-4 #### [facility] ([id number]) [address], [address] [place] [address] Lymphocytes/100 WBC (Bld) 47.4 % Normal [facility] Comment on above: Performed By: #### Elizabeth ARROYO, FEPR, 2275- #### [facility] ([id number]) [address] [address] [address] [facility] [address] [place] [address] MCH (RBC) [Entitic mass] 33.2 pg Normal 27-34 [facility] Comment on above: Performed By: #### Elizabeth ARROYO, FEPR, 2275-05 #### [facility] ([id number]) [address], [address] [place] [address] MCHC (RBC) [Mass/Vol] 35.5 g/dL Normal 32-36 [facility] Comment on above: Performed By: #### Elizabeth ARROYO, FEPR, 2275-05 #### [facility] ([id number]) [address] [place] [address] MCV (RBC) [Entitic vol] 94 fL Normal 80-100 [facility] Comment on above: Performed By: #### Elizabeth ARROYO, FEPR, 2275-05 #### [facility] ([id number]) [address], [address] [place] [address] Monocytes (Bld) [#/Vol] 0.4 10*3/uL Normal 0-0.9 [facility] Comment on above: Performed By: #### Elizabeth ARROYO, FEPR, 2275-4 #### [facility] ([id number]) [address], [address] [place] [address] Monocytes/100 WBC (Bld) 9.1 % Normal [facility] Comment on above: Performed By: #### Elizabeth ARROYO, FEPR, 6-4 #### [facility] ([id number]) [address], [facility] [address] [place] [address] Neutrophils/100 WBC (Bld) 40.7 % Normal [facility] Comment on above: Performed By: #### Elizabeth ARROYO FEPR, 2275-4 #### [facility] ([id number]) [address] [address] [place] [address] Platelet mean volume (Bld) [Entitic vol] 11.1 fL Normal 7-12 [facility] Comment on above: Performed By: #### Elizabeth ARROYO, FEPR, 2275-4 #### [facility] ([id number]) [address] [address] [place] [address] Platelets (Bld) [#/Vol] 187 10*3/uL Normal 150-450 [facility] Comment on above: Performed By: #### Elizabeth ARROYO, FEPR, 2275-4 #### [facility] ([id number]) [address] [address] [place] [address] RBC COUNT 3.87 X10E12/L Normal 3.80-5.20 [facility] Comment on above: Performed By: #### Elizabeth ARROYO, FEPR, 2275-4 #### [facility] ([id number]) [address] [address] [place] [address] WBC (Bld) [#/Vol] 4.8 10*3/uL Normal 4.0-11.0 [facility] Comment on above: Performed By: #### Elizabeth ARROYO, FEPR, 2275-4 #### [facility] ([id number]) [address], [facility] [address] [place] [address] FERRITINon 12-01-2023 Ferritin [Mass/Vol] 12 ng/mL Normal 11-307 [facility] Comment on above: Performed By: #### C BCA, FEPR, 6-4 #### [facility] ([id number]) [address], [address] [place] [address] IRON PROFILEon 12-01-2023 Iron [Mass/Vol] 74 ug/dL Normal 50-170 [facility] Comment on above: Performed By: #### C BCA, FEPR, 2275-4 #### [facility] ([id number]) [address], [facility] [address] [place] [address] IRON BINDING 344 ug/dL Normal 250-425 [facility] Comment on above: Performed By: #### C BCA, FEPR, 2275-4 #### [facility] ([id number]) [address], [address] [place] [address] IRON SATURATION 21 % SATURATION Normal 15-50 [facility] Comment on above: Performed By: #### C BCA, FEPR, 2275-4 #### [facility] ([id number]) [address], [address] [place] [address] CBC AND AUTO DIFFon 08-04-19 24 ABSOLUTE BASOPHIL 0.0 X10E9/L Normal 0.0-0.2 [facility] Comment on above: Performed By: #### C BCA, FEPR, 2275-4 #### [facility] ([id number]) [address] [address] [place] [address] ABSOLUTE NEUTROPHIL 2.7 X10E9/L Normal 1.5-6.6 [facility] Comment on above: Performed By: #### C BCA, FEPR, 2275-4 #### [facility] ([id number]) [address], [address] [place] [address] Basophils/100 WBC (Bld) 0.4 % Normal [facility] Comment on above: Performed By: #### C BCA, FEPR, 2275-4 #### [facility] ([id number]) [address], [facility] [address] [place] [address] Eosinophils (Bld) [#/Vol] 0.1 10*3/uL Normal 0.0-0.4 [facility] Comment on above: Performed By: #### C BCA, FEPR, 2275-4 #### [facility] ([id number]) [address], [facility] [address] [place] [address] Eosinophils/100 WBC (Bld) 2.0 % Normal [facility] Comment on above: Performed By: #### C BCA, FEPR, 4 #### [facility] ([id number]) [address] [address] [place] [address] Erythrocyte distribution width (RBC) [Ratio] 13.5 % Normal 11.5-15.0 [facility] Comment on above: Performed By: #### C BCA, FEPR, 2275-4 #### [facility] ([id number]) [address], [facility] [address] [place] [address] Hematocrit (Bld) [Volume fraction] 35.2 % Normal 35-47 [facility] Comment on above: Performed By: #### C BCA, FEPR, 2275-4 #### [facility] ([id number]) [address], [facility] [address] [place] [address] Hemoglobin (Bld) [Mass/Vol] 12.2 g/dL Normal 11.7-15.5 [facility] Comment on above: Performed By: #### C BCA, FEPR, 2275-4 #### [facility] ([id number]) [address] [address] [place] [address] Lymphocytes (Bld) [#/Vol] 1.9 10*3/uL Normal 1.0-3.5 [facility] Comment on above: Performed By: #### C CRUZ, FEPR, 2275-05 #### [facility] ([id number]) [address], [address] [place] [address] Lymphocytes/100 WBC (Bld) 36.8 % Normal [facility] Comment on above: Performed By: #### C BCA, FEPR, 2275-05 #### [facility] ([id number]) [address], [facility] [address] [place] [address] MCH (RBC) [Entitic mass] 31.9 pg Normal 27-34 [facility] Comment on above: Performed By: #### C CRUZ, FEPR, 2275-05 #### [facility] ([id number]) [address], [address] [place] [address] MCHC (RBC) [Mass/Vol] 34.5 g/dL Normal 32-36 [facility] Comment on above: Performed By: #### Elizabeth BCA, FEPR, 2275-05 #### [facility] ([id number]) [address], [address] [place] [address] MCV (RBC) [Entitic vol] 93 fL Normal 80-100 [facility] Comment on above: Performed By: #### Elizabeth BCA, FEPR, 2275-05 #### [facility] ([id number]) [address] [place] [address] Monocytes (Bld) [#/Vol] 0.4 10*3/uL Normal 0-0.9 [facility] Comment on above: Performed By: #### C BCA, FEPR, 2275-05 #### [facility] ([id number]) [address], [address] [place] [address] Monocytes/100 WBC (Bld) 8.3 % Normal [facility] Comment on above: Performed By: #### Elizabeth BCA, FEPR, 2275-05 #### [facility] ([id number]) [address] [place] [address] Neutrophils/100 WBC (Bld) 52.5 % Normal [facility] Comment on above: Performed By: #### C BCA, FEPR, 2275-4 #### [facility] ([id number]) [address], [facility] [address] [place] [address] Platelet mean volume (Bld) [Entitic vol] 10.7 fL Normal 7-12 [facility] Comment on above: Performed By: #### C BCA, FEPR, 2275-4 #### [facility] ([id number]) [address], [facility] [address] [place] [address] Platelets (Bld) [#/Vol] 198 10*3/uL Normal 150-450 [facility] Comment on above: Performed By: #### Elizabeth BCA, FEPR, 2275-4 #### [facility] ([id number]) [address], [address] [place] [address] RBC COUNT 3.81 X10E12/L Normal 3.80-5.20 [facility] Comment on above: Performed By: #### Elizabeth BCA, FEPR, 2275-4 #### [facility] ([id number]) [address] [address] [place] [address] WBC (Bld) [#/Vol] 5.2 10*3/uL Normal 4.0-11.0 [facility] Comment on above: Performed By: #### C BCA, FEPR, 2275-4 #### [facility] ([id number]) [address], [facility] [address] [place] [address] FERRITINon 08-04-2023 Ferritin [Mass/Vol] 27 ng/mL Normal 11-307 [facility] Comment on above: Performed By: #### Elizabeth BCA, FEPR, 2275-4 #### [facility] ([id number]) [address], [address] [place] [address] IRON PROFILEon 08-04-2023 Iron [Mass/Vol] 46 ug/dL Low 50-170 [facility] Comment on above: Performed By: #### C BCA, FEPR, 2276-4 #### [facility] ([id number]) [address] [facility], [address] [place] [address] IRON BINDING 273 ug/dL Normal 250-425 [facility] Comment on above: Performed By: #### C BCA, FEPR, 2276-4 #### [facility] ([id number]) [address] [facility], [address] [place] [address] IRON SATURATION 17 % SATURATION Normal 15-50 [facility] Comment on above: Performed By: #### C BCA, FEPR, 2276-4 #### [facility] ([id number]) [address] [facility], [facility] [address] [place] [address] M. tuberculosis stim IFN-g p carrillo (Bld)on 08-04-2023 Mitogen minus Nil Result 9.92 IU/mL Normal [facility] Comment on above: Performed By: #### 7 1775-1 #### [facility] [employer] ([id number]) [address] [facility], Nil Result 0.08 IU/mL Normal [facility] Comment on above: Result Comment: NOTE Test Performed by: [place] [address] Dog Track Kennel Manager: Celi Fernandez Ph.D.; CLIA# [id number] Performed By: #### 7 1775-1 #### [employer] [facility] [employer] ([id number]) [address] [place] [address], QuantiFERON-Tb Gold Plus Result Negative Normal Negative [facility] Comment on above: Result Comment: NOTE [...] IU/mL. Performed By: #### 7 1775-1 #### [employer] ([id number]) [address] [facility], TB1 Ag minus Nil Result 0.09 IU/mL Normal [facility] Comment on above: Performed By: #### 7 1775-1 #### [employer] ([id number]) [facility]0 [facility], TB2 Ag minus Nil Result 0.01 IU/mL Normal [facility] Comment on above: Performed By: #### 7 1775-1 #### [employer] ([id number]) [facility]0 [facility], [facility] ACOG PANEL 2: 30 to 65on 05-07-2022 . . Normal [facility] Comment on above: Result Comment: Perf ormed at: WB Performed By: #### 4 [id number] #### [facility] [address] [place] [address] Dr. Bisi Glass Age Gdln ACOG Testing 30-65 Normal [facility] Comment on above: Performed By: #### 4 [id number] #### [facility] [address] [address] [address] Bisi Glass DIAGNOSIS: Comment Normal [facility] Comment on above: Result Comment: NEGA TIVE FOR INTRAEPITHELIAL LESION OR MALIGNANCY. Performed at: WB Performed By: #### 4 [id number] #### [facility] [address] [place] [address] Dr. Bisi Glass HPV Aptima Negative Normal Negative [facility] Comment on above: Result Comment: This nucleic acid amplification test detects fourteen high-risk HPV types (16,18,31,33,35,39,45,51,52,56,58,59,66,68) without differentiation. Performed at: =G Performed By: #### 4 348101 #### [facility] [address] [place] [address] Dr. Bisi Glass HPV Genotype Reflex Comment Normal [facility] Comment on above: Result Comment: Crit eria not met, HPV Genotype not performed. Performed at: WB Performed By: #### 4 273688 #### [facility] [address] [place] [address] Dr. Bisi Glass Methodology: Comment Normal [facility] Comment on above: Result Comment: This liquid based ThinPrep(R) pap test was screened with the use of an image guided system. Performed at: WB Performed By: #### 4 397153 #### [facility] [address] [place] [address] Dr. Bisi Glass Note: Comment Normal [facility] Comment on above: Result Comment: The Pap smear is a screening test designed to aid in the detection of premalignant and malignant conditions of the uterine cervix. It is not a diagnostic procedure and should not be used as the sole means of detecting cervical cancer. Both false-positive and false-negative reports do occur. . Performed at: WB Performed By: #### 4 183379 #### [facility] [address] [place] [address] Dr. Bisi Glass Performed by: Comment Normal [facility] Comment on above: Result Comment: Ngozi Hamlin, Marine Electronics Repairer (ASCP) Performed at: WB Performed By: #### 4 458420 #### [facility] [address] [place] [address] Dr. Bisi Glass Specimen adequacy: Comment Normal [facility] Comment on above: Result Comment: Sati sfactory for evaluation. Endocervical and/or squamous metaplastic cells (endocervical component) are present. Performed at: WB Performed By: #### 4 308345 #### [facility] [address] [place] [address] Dr. Bisi Glass [facility] 02-11-2017 [facility] Letter TextNorth Salinas Valley Health Medical Centery[address] [place], [place] [address]Jbrxq: [phone]: [facility] [address] [place] [place], [place] [address]Ineza: [phone]: [facility] [address] [place], [place] [address]Aevgn: [phone]: Toll Free: [phone] [email or web address] too Roldan M.D., Jhon Mora M.D.Barry Camarena M.D.Samara Hernandez D.O..Oksana Benson M.D.Nati Sullivan M.D. Matt Bobby M.D.February 11, [address] [address]Hzzv Ms. Storey,You missed your scheduled appointment on Saturday February 11, 2017. Pleasecall our office to reschedule. If you need to cancel any futureappointments, please call to give us 24 hour notice so that we can offer yourappointment to another patient.Sincerely,Samara Canales M.D. Normal [facility] 12-03-2016 [facility] ([facility] PHILLIP STOREY ([id number]) 1990 te Time Provider Cwrjxvaqhs80/24/17 1:00 PM CHAIR 1 JOSE PADGETT During your visit today, we recorded the following information about you: Temperature Pulse Respiration Blood pressure 98.9 degrees 76/minute 18/minute 97/64Referring Provider: SAMARA HERNANDEZ [[id number]]Allergies As of Date: 12/03/2016(No Known Allergies)Date Reviewed: 12/03/2016Reviewed by: Kristi JacksonRn) JAD Partida - Fully AssessedPrimary Visit Diagnosis:Anemia, unspecified type [D64.9]Order(s):TREATMENT PARAMETER-NOT NEEDED [3925773] Order #: [id number]: 1 HEMONC NURSING COMMUNICATION [9990214] Order #: [id number]: 1 STANDING HEMONC NURSING COMMUNICATION [9990214] Order #: [id number]: 1 STANDING HEMONC NURSING COMMUNICATION [9990214] Order #: [id number]: 1 STANDING HEMONC NURSING COMMUNICATION [9990214] Order #: [id number]: 1 STANDING HEMONC NURSING COMMUNICATION [9990214] Order #: [id number]: 1 STANDING HEMONC NURSING COMMUNICATION [9990214] Order #: [id number]: 1 STANDING [] iron sucrose 200 mg [...] (1 ML) INJECTION* 12/03/2016 Route: INTRAMUSCULAEncounter Number: [id number] Status:Closed by KRISTI PARTIDA on 12/03/[address] [facility] CNOVSPon 11-19-2016 CNOVS Visit (SP) Office (HEMACL) RALEIGHPHILLIP Richey ([id number]) 1990 FDate Time Provider Kuykweyxab51/10/17 11:00 AM SAMARA HERNANDEZ HEMACL During your visit today, we recorded the following information about you: Temperature Pulse Respiration Blood pressure 97.8 degrees 78/minute 18/minute 96/61 Weight Height 59.6 kg 1.632 Clara Berger 11/19/2016 11:15 AM SignedPatient states feeling more fatigue.Samara Hernandez DO 11/23/2016 9:43 AM SignedPATIENT NAME: Juan Luis Richey RaleighMRN: [id number] PHYSICIAN: IFTIKHAR RAZO[address] [place] [address] CARE PHYSICIAN: Iftikhar RazoOTHER PHYSICIANS:CHIEF COMPLAINT: Anemia, [...] PRESENT ILLNESS: This is a 26year old -Belizean femaleCBC from 05/22/16 reveals white blood cell [...] her second kid in dec 2014.Works a [employer] service.June 04, 2016Eats a bag of ice [...] I answered all questions satisfactorily..Mariano Hernandez D.O.Medical OncologistCausey, [place]Referring Provider: SAMARA HERNANDEZ [[id number]]Allergies As of Date: 11/19/2016(No Known Allergies)Date Reviewed: [...] by SAMARA HERNANDEZ DO on 11/23/16 Normal [facility] PROGRESSon 11-19-2016 PROGRESS HNO ID: [id number] thor: Samara HernandezService: (none)Author Type: PhysicianType: Progress NotesFiled: 11/23/2016 9:43 AMNote Text:PATIENT NAME: Juan Luis StoreyMRN: [id number] PHYSICIAN: IFTIKHAR RAZO[address] [place] [address] CARE PHYSICIAN: Iftikhar RazoOTHER PHYSICIANS:CHIEF COMPLAINT: Anemia, [...] PRESENT ILLNESS: This is a 26year old -Belizean femaleCBC from 05/22/16 reveals white blood cell [...] her second kid in dec 2014.Works a [employer] service.June 04, 2016Eats a bag of [...] I answered all questions satisfactorily..Mariano Hernandez D.O.Medical OncologistCausey, [place] Normal [facility] Remote CBCDIF (for [facility] use o nly)on 11-19-2016 Abs Baso 0.02 k/uL Normal <0.11 [facility] Abs Putnam 0.40 k/uL Normal 0.00-0.86 [facility] Abs Neut 3.13 k/uL Normal 1.45-7.50 [facility] Basophils/100 WBC Auto (Bld) 0.4 % Normal [facility] Eosinophils 0.05 10*3/uL Normal <0.46 [facility] Eosinophils/100 leukocytes 0.9 % Normal [facility] Erythrocyte distribution width Auto Ratio (RBC) 13.5 % Normal 11.5-15.0 [facility] Erythrocytes (RBC) 3.87 10*6/uL Low 3.90-5.20 [facility] Hematocrit (HCT) 33.0 % Low 36.0-46.0 [facility] Hemoglobin mass conc (Bld) 10.5 g/dL Low 11.5-15.5 [facility] Lymphocytes 1.70 10*3/uL Normal 1.00-4.00 [facility] Lymphocytes/100 leukocytes 32.1 % Normal [facility] MCH 27.1 pG Normal 26.0-34.0 [facility] MCHC mass conc (RBC) 31.8 g/dL Normal 30.5-36.0 [facility] MCV 85.3 fL Normal 80.0-100.0 [facility] Monocytes/100 leukocytes 7.5 % Normal [facility] Neutrophils/100 WBC Auto (Bld) 59.1 % Normal [facility] Platelet mean volume (PMV) 11.0 fL Normal 9.0-12.7 [facility] Platelets 288 10*3/uL Normal 150-400 [facility] WBC (Leukocytes) 5.30 10*3/uL Normal 3.70-11.00 [facility] Remote iSTAT BMP (for [facility] us e only)on 11-19-2016 Anion gap 11 mmol/L Normal 0-15 [facility] BUN (urea nitrogen) 12 mg/dL Normal 8-25 [facility] Chloride 105 mmol/L Normal 98-110 [facility] CO2 24 mmol/L Normal 23-32 [facility] Creatinine 0.70 mg/dL Normal 0.70-1.40 [facility] eGFR (non-black) mL/min/{1.73_m2} Normal Cl [facility] Comment on above: Result Comment: eGFR (Estimated [...] Glucose mass conc 79 mg/dL Normal 65-100 [facility] Ionized Calcium, WB 1.14 mmol/L Normal 1.08-1.30 [facility] Comment on above: Result Comment: Plea se note: This value represents ionized calcium not total calcium. Potassium molar conc 4.0 mmol/L Normal 3.5-5.0 [facility] Sodium 140 mmol/L Normal 132-148 [facility] Ferritinon 10-29-2016 Ferritin 19.8 ng/mL Normal 14.7-205.1 [facility] Comment on above: Performed By: #### I CHERYL, FERR ####[facility] [address] AveCGulf [place], [place] [phone] Iron and TIBCon 10-29-2016 Iron 21 ug/dL Low 41-186 [facility] Comment on above: Performed By: #### I CHERYL, FERR ####[facility] [address] Av[place], [place] [phone] TIBC 331 ug/dL Normal 232-386 [facility] Comment on above: Performed By: #### I CHERYL, FERR ####[facility] [address] AveCGulf [place], [place] [phone] Transferrin Saturatn 6 % Low 15-57 [facility] Comment on above: Performed By: #### I CHERYL, FERR ####[facility] [address] [place], [place] [phone] Remote CBCDIF (for [facility] use o nly)on 10-29-2016 Abs Baso 0.02 k/uL Normal 0.00-0.10 [facility] Abs Putnam 0.42 k/uL Normal 0.00-0.86 [facility] Abs Neut 3.06 k/uL Normal 1.45-7.50 [facility] Basophils/100 WBC Auto (Bld) 0.3 % Normal [facility] Eosinophils 0.11 10*3/uL Normal 0.00-0.45 [facility] Eosinophils/100 leukocytes 1.8 % Normal [facility] Erythrocyte distribution width Auto Ratio (RBC) 12.9 % Normal 11.5-15.0 [facility] Erythrocytes (RBC) 3.90 10*6/uL Normal 3.90-5.20 [facility] Hematocrit (HCT) 34.0 % Low 36.0-46.0 [facility] Hemoglobin mass conc (Bld) 10.8 g/dL Low 11.5-15.5 [facility] Lymphocytes 2.37 10*3/uL Normal 1.00-4.00 [facility] Lymphocytes/100 leukocytes 39.6 % Normal [facility] MCH 27.7 pG Normal 26.0-34.0 [facility] MCHC mass conc (RBC) 31.8 g/dL Normal 30.5-36.0 [facility] MCV 87.2 fL Normal 80.0-100.0 [facility] Monocytes/100 leukocytes 7.0 % Normal [facility] Neutrophils/100 WBC Auto (Bld) 51.3 % Normal [facility] Platelet mean volume (PMV) 10.8 fL Normal 9.0-12.7 [facility] Platelets 268 10*3/uL Normal 150-400 [facility] WBC (Leukocytes) 5.98 10*3/uL Normal 3.70-11.00 [facility] Remote iSTAT BMP (for [facility] us e only)on 10-29-2016 Anion gap 11 mmol/L Normal 0-15 [facility] BUN (urea nitrogen) 9 mg/dL Normal 8-25 [facility] Chloride 104 mmol/L Normal 98-110 [facility] CO2 26 mmol/L Normal 23-32 [facility] Creatinine 0.70 mg/dL Normal 0.70-1.40 [facility] eGFR (non-black) mL/min/{1.73_m2} Normal Cl [facility] Comment on above: Result Comment: eGFR (Estimated [...] Glucose mass conc 83 mg/dL Normal 65-100 [facility] Ionized Calcium, WB 1.16 mmol/L Normal 1.08-1.30 [facility] Comment on above: Result Comment: Plea se note: This value represents ionized calcium not total calcium. Potassium molar conc 3.8 mmol/L Normal 3.5-5.0 [facility] Sodium 141 mmol/L Normal 132-148 [facility] Ferritinon 08-22-2017 Ferritin 9.1 ng/mL Low 14.7-205.1 [facility] Comment on above: Performed By: #### I CHERYL, FERR ####[facility] [place], [place] [phone] Iron and TIBCon 10-01-2016 Iron 34 ug/dL Low 41-186 [facility] Comment on above: Performed By: #### I CHERYL, FERR ####[facility] [place], [place] [phone] TIBC 316 ug/dL Normal 232-386 [facility] Comment on above: Performed By: #### I CHERYL, FERR ####[facility] [place], [place] [phone] Transferrin Saturatn 11 % Low 15-57 [facility] Comment on above: Performed By: #### Tatum LUNA, FERR ####[facility] [place], [place] [phone] Remote CBCDIF (for [facility] use o nly)on 10-01-2016 Abs Baso 0.02 k/uL Normal 0.00-0.10 [facility] Abs Putnam 0.53 k/uL Normal 0.00-0.86 [facility] Abs Neut 2.48 k/uL Normal 1.45-7.50 [facility] Basophils/100 WBC Auto (Bld) 0.4 % Normal [facility] Eosinophils 0.09 10*3/uL Normal 0.00-0.45 [facility] Eosinophils/100 leukocytes 1.6 % Normal [facility] Erythrocyte distribution width Auto Ratio (RBC) 13.7 % Normal 11.5-15.0 [facility] Erythrocytes (RBC) 3.85 10*6/uL Low 3.90-5.20 [facility] Hematocrit (HCT) 33.5 % Low 36.0-46.0 [facility] Hemoglobin mass conc (Bld) 10.7 g/dL Low 11.5-15.5 [facility] Lymphocytes 2.36 10*3/uL Normal 1.00-4.00 [facility] Lymphocytes/100 leukocytes 43.1 % Normal [facility] MCH 27.8 pG Normal 26.0-34.0 [facility] MCHC mass conc (RBC) 31.9 g/dL Normal 30.5-36.0 [facility] MCV 87.0 fL Normal 80.0-100.0 [facility] Monocytes/100 leukocytes 9.7 % Normal [facility] Neutrophils/100 WBC Auto (Bld) 45.2 % Normal [facility] Platelet mean volume (PMV) 10.8 fL Normal 9.0-12.7 [facility] Platelets 282 10*3/uL Normal 150-400 [facility] WBC (Leukocytes) 5.48 10*3/uL Normal 3.70-11.00 [facility] Remote iSTAT BMP (for [facility] us e only)on 10-01-2016 Anion gap 13 mmol/L Normal 0-15 [facility] BUN (urea nitrogen) 14 mg/dL Normal 8-25 [facility] Chloride 102 mmol/L Normal 98-110 [facility] CO2 24 mmol/L Normal 23-32 [facility] Creatinine 0.70 mg/dL Normal 0.70-1.40 [facility] eGFR (non-black) mL/min/{1.73_m2} Normal Cl [facility] Comment on above: Result Comment: eGFR (Estimated [...] Glucose mass conc 93 mg/dL Normal 65-100 [facility] Ionized Calcium, WB 1.14 mmol/L Normal 1.08-1.30 [facility] Comment on above: Result Comment: Plea se note: This value represents ionized calcium not total calcium. Potassium molar conc 3.7 mmol/L Normal 3.5-5.0 [facility] Sodium 139 mmol/L Normal 132-148 [facility] Remote CBCDIF (for [facility] use o nly)on 08-29-2016 Abs Baso 0.02 k/uL Normal 0.00-0.10 [facility] Abs Putnam 0.52 k/uL Normal 0.00-0.86 [facility] Abs Neut 3.37 k/uL Normal 1.45-7.50 [facility] Basophils/100 WBC Auto (Bld) 0.3 % Normal [facility] Eosinophils 0.10 10*3/uL Normal 0.00-0.45 [facility] Eosinophils/100 leukocytes 1.7 % Normal [facility] Erythrocyte distribution width Auto Ratio (RBC) 18.7 % High 11.5-15.0 [facility] Erythrocytes (RBC) 3.97 10*6/uL Normal 3.90-5.20 [facility] Hematocrit (HCT) 33.0 % Low 36.0-46.0 [facility] Hemoglobin mass conc (Bld) 10.5 g/dL Low 11.5-15.5 [facility] Lymphocytes 1.92 10*3/uL Normal 1.00-4.00 [facility] Lymphocytes/100 leukocytes 32.4 % Normal [facility] MCH 26.4 pG Normal 26.0-34.0 [facility] MCHC mass conc (RBC) 31.8 g/dL Normal 30.5-36.0 [facility] MCV 83.1 fL Normal 80.0-100.0 [facility] Monocytes/100 leukocytes 8.8 % Normal [facility] Neutrophils/100 WBC Auto (Bld) 56.8 % Normal [facility] Platelet mean volume (PMV) 10.0 fL Normal 9.0-12.7 [facility] Platelets 263 10*3/uL Normal 150-400 [facility] WBC (Leukocytes) 5.93 10*3/uL Normal 3.70-11.00 [facility] Remote iSTAT BMP (for [facility] us e only)on 08-29-2016 Anion gap 12 mmol/L Normal 0-15 [facility] BUN (urea nitrogen) 12 mg/dL Normal 8-25 [facility] Chloride 104 mmol/L Normal 98-110 [facility] CO2 24 mmol/L Normal 23-32 [facility] Creatinine 0.80 mg/dL Normal 0.70-1.40 [facility] eGFR (non-black) mL/min/{1.73_m2} Normal Cl [facility] Comment on above: Result Comment: eGFR (Estimated [...] Glucose mass conc 91 mg/dL Normal 65-100 [facility] Ionized Calcium, WB 1.14 mmol/L Normal 1.08-1.30 [facility] Comment on above: Result Comment: Plea se note: This value represents ionized calcium not total calcium. Potassium molar conc 3.7 mmol/L Normal 3.5-5.0 [facility] Sodium 140 mmol/L Normal 132-148 [facility] Vital Signs Date Time Vital Sign Value Performing Clinician Facility 03-17-2024 10:51-0500 Body mass index (BMI) [Ratio] 29.31 kg/m2 Yaquelin BELCHER Work Phone: [facility] 03-17-2024 10:51-0500 Body weight 79.89 kg Yaquelin BELCHER Work Phone: [facility] 03-17-2024 10:51-0500 Diastolic blood pressure 70 mm[Hg] Yaquelin BELCHER Work Phone: [facility] 03-17-2024 10:51-0500 Systolic blood pressure 116 mm[Hg] Yaquelin BELCHER Work Phone: [facility] 03-08-2024 12:30-0500 Body temperature 99.81 [degF] Wlc 1 [facility] [employer] 03-08-2024 12:30-0500 Diastolic blood pressure 69 mm[Hg] Wlc [address] [facility] 03-08-2024 12:30-0500 Heart rate 103 /min Wlc [address] [facility] 03-08-2024 12:30-0500 Respiratory rate 18 /min Wlc 1 [facility] [employer] 03-08-2024 12:30-0500 Systolic blood pressure 109 mm[Hg] Wlc [address] [facility] 03-08-2024 10:10-0500 Body mass index (BMI) [Ratio] 29.62 kg/m2 Wl [address] [facility] 03-08-2024 10:10-0500 Body weight 80.74 kg [facility] [address] [facility] 02-18-2024 11:43-0500 Body mass index (BMI) [Ratio] 29.29 kg/m2 Parish Courtney DO Work Phone: [facility] 02-18-2024 11:43-0500 Body weight 79.83 kg Parish Courtney DO Work Phone: [facility] 02-18-2024 11:43-0500 Diastolic blood pressure 72 mm[Hg] Parish Courtney DO Work Phone: [facility] 02-18-2024 11:43-0500 Systolic blood pressure 122 mm[Hg] Parish Courtney [employer] Work Phone: [facility] 12-12-2023 11:50-0400 Body temperature 98.91 [degF] Wl 2 [facility] [employer] [facility] 12-12-2023 11:50-0400 Diastolic blood pressure 66 mm[Hg] Wlc [address] [facility] 12-12-2023 11:50-0400 Heart rate 92 /min Wlc [address] [facility] 12-12-2023 11:50-0400 Respiratory rate 18 /min Wlc 2 [facility] [employer] 12-12-2023 11:50-0400 Systolic blood pressure 100 mm[Hg] Wlc [address] [facility] 12-12-2023 10:31-0400 Body mass index (BMI) [Ratio] 27.96 kg/m2 Wl [address] [facility] 12-12-2023 10:31-0400 Body weight 76.2 kg Wl [address] [facility] 12-01-2023 14:25-0400 Body height 165.1 cm Dominique Josh CHIEF RISK OFFICER-IGNITION SPECIALIST Work Phone: [facility] 12-01-2023 14:25-0400 Body mass index (BMI) [Ratio] 27.89 kg/m2 Dominique Josh CHIEF RISK OFFICER-IGNITION SPECIALIST Work Phone: [facility] 12-01-2023 14:25-0400 Body temperature 98.8 [degF] Dominique Josh CHIEF RISK OFFICER-IGNITION SPECIALIST Work Phone: [facility] 12-01-2023 14:25-0400 Body weight 76.02 kg Dominique Josh CHIEF RISK OFFICER-IGNITION SPECIALIST Work Phone: [facility] 12-01-2023 14:25-0400 Diastolic blood pressure 76 mm[Hg] Dominique Josh CHIEF RISK OFFICER-IGNITION SPECIALIST Work Phone: [facility] 12-01-2023 14:25-0400 Heart rate 71 /min Dominique Josh CHIEF RISK OFFICER-IGNITION SPECIALIST Work Phone: [facility] 12-01-2023 14:25-0400 Respiratory rate 16 /min Dominique Josh CHIEF RISK OFFICER-IGNITION SPECIALIST Work Phone: [facility] 12-01-2023 14:25-0400 SaO2% (BldA) [Mass fraction] 99 % Dominique Josh CHIEF RISK OFFICER-IGNITION SPECIALIST Work Phone: [facility] 12-01-2023 14:25-0400 Systolic blood pressure 111 mm[Hg] Domniique Josh CHIEF RISK OFFICER-IGNITION SPECIALIST Work Phone: [facility] 04-21-2023 13:05-0400 Body temperature 97.81 [degF] Wl 4 [facility] 04-21-2023 13:05-0400 Diastolic blood pressure 75 mm[Hg] [facility] [address] [facility] 04-21-2023 13:05-0400 Heart rate 78 /min [facility] [address] [facility] 04-21-2023 13:05-0400 Respiratory rate 20 /min [facility] 4 [facility] 04-21-2023 13:05-0400 Systolic blood pressure 117 mm[Hg] [facility] [address] [facility] 04-21-2023 10:29-0400 Body mass index (BMI) [Ratio] 27.89 kg/m2 [facility] [address] [facility] 04-21-2023 10:29-0400 Body weight 76.[address] 02-20-2023 11:48-0500 Body height 165.1 cm Lyndsey Anders MD Work Phone: [facility] 02-20-2023 11:48-0500 Body mass index (BMI) [Ratio] 27.46 kg/m2 Lyndsey Anders MD Work Phone: [facility] 02-20-2023 11:48-0500 Body temperature 98.91 [degF] Lyndsey Anders MD Work Phone: [facility] 02-20-2023 11:48-0500 Body weight 74.84 kg Lyndsey Anders MD Work Phone: [facility] 02-20-2023 11:48-0500 Diastolic blood pressure 72 mm[Hg] Lyndsey Anders MD Work Phone: [facility] 02-20-2023 11:48-0500 Heart rate 104 /min Lyndsey Anders MD Work Phone: [facility] 02-20-2023 11:48-0500 SaO2% (BldA) [Mass fraction] 99 % Lyndsey Anders MD Work Phone: [facility] 02-20-2023 11:48-0500 Systolic blood pressure 114 mm[Hg] Lyndsey Anders MD Work Phone: [facility] 02-17-2023 14:26-0500 Body temperature 99.1 [degF] [address] 02-17-2023 14:26-0500 Diastolic blood pressure 77 mm[Hg] [address] 02-17-2023 14:26-0500 Heart rate 100 /min [address] 02-17-2023 14:26-0500 SaO2% (BldA) [Mass fraction] 97 % [address] 02-17-2023 14:26-0500 Systolic blood pressure 117 mm[Hg] [address] 02-17-2023 11:45-0500 Body mass index (BMI) [Ratio] 27.69 kg/m2 [address] 02-17-2023 11:45-0500 Body weight 75.[address] 02-17-2023 11:45-0500 Respiratory rate 20 /min [address] 02-06-2023 12:54-0500 Diastolic blood pressure 69 mm[Hg] Pfo [address] [facility] 02-06-2023 12:54-0500 Heart rate 92 /min Pf [address] [facility] 02-06-2023 12:54-0500 Respiratory rate 18 /min Pf 3 [facility] 02-06-2023 12:54-0500 SaO2% (BldA) [Mass fraction] 100 % Pf [address] [facility] 02-06-2023 12:54-0500 Systolic blood pressure 104 mm[Hg] Pfo [address] [facility] 02-06-2023 11:37-0500 Body height 165.1 cm Pfo [address] [facility] 02-06-2023 11:37-0500 Body mass index (BMI) [Ratio] 27.46 kg/m2 Pf [address] [facility] 02-06-2023 11:37-0500 Body temperature 98.4 [degF] Pf 3 [facility] 02-06-2023 11:37-0500 Body weight 74.84 kg [...] Start: 03-17-2024 End: 03-17-2024 flow sheet Yaquelin BELCHER Work Phone: [facility] Comment on above: Second trimester pre gnancy; 19 weeks gestation of ; Vaginal discharge; STD exposure; Screening, , for anatomic survey Start: 03-11-2024 End: 03-11-2024 Clinisync Result Encounter Parish Courtney DO Work Phone: [facility] Unsolicited Start: 03-11-2024 End: 03-11-2024 Clinisync Result Encounter Parish Courtney DO Work Phone: [facility] Unsolicited Start: 03-08-2024 End: 03-08-2024 ambulatory [facility] Infusion Chair 1 [facility] Comment on [...] Orders Only Sharda Montiel MD Work Phone: [facility] Comment on above: Therapeutic drug mon itoring (Primary Dx) Start: 01-31-2024 End: 01-31-2024 Emergency department patient visit [facility] Start: 01-26-2024 End: 01-26-2024 ambulatory [facility] Start: 01-26-2024 End: 01-26-2024 ambulatory [facility] Start: 01-23-2024 End: 01-23-2024 ambulatory YAQUELIN HORNE Not Available Start: 01-23-2024 End: 01-23-2024 Office outpatient visit 5 minutes [facility] Courtney Nurse [facility] Comment on above: GA: 11w2d Start: 01-13-2024 End: 01-13-2024 Orders Only Dominique Moya CHIEF RISK OFFICER-IGNITION SPECIALIST Work Phone: [facility] Comment on above: Iron deficiency anem ia due to chronic blood loss (Primary Dx); Iron malabsorption; Iron deficiency anemia, unspecified Start: 01-06-2024 End: 01-06-2024 Orders Only Dominique Moya CHIEF RISK OFFICER-IGNITION SPECIALIST Work Phone: [facility] Comment on above: Iron deficiency anem ia due to chronic blood loss (Primary Dx); Iron malabsorption; Iron deficiency anemia, unspecified Start: 01-03-2024 End: 01-03-2024 Emergency department patient visit [facility] Start: 12-17-2023 End: 12-18-2023 Telephone encounter Raf Zarco RN [facility] Start: 12-12-2023 End: 12-12-2023 ambulatory [facility] Infusion Chair 2 [facility] Comment on above: Crohn's disease of b oth small and large intestine with intestinal obstruction (CMS-HCC) (Primary Dx) Start: 12-01-2023 End: 12-01-2023 Office outpatient visit 25 minutes Dominique Moya APRN-IGNITION SPECIALIST Work Phone: [facility] Comment on above: Iron deficiency (Ping hussein Dx); Crohn's disease of both small and large intestine with intestinal obstruction (CMS-HCC); Chronic fatigue; Leg cramps; Noncompliance; Iron deficiency anemia due to chronic blood loss; Iron malabsorption; Iron deficiency anemia, unspecified Start: 12-01-2023 End: 12-01-2023 ambulatory DOMINIQUE MOYA [facility] Start: 12-01-2023 End: 12-01-2023 ambulatory MJ PIZARRO [facility] Start: 10-31-2023 End: 10-31-2023 ambulatory [facility] Start: 09-17-2023 End: 09-17-2023 ambulatory [facility] Start: 09-15-2023 End: 09-15-2023 ambulatory YAQUELIN HORNE Not Available Start: 09-15-2023 End: 09-15-2023 ambulatory [facility] Start: 09-03-2023 End: 09-03-2023 ambulatory [facility] Start: 08-20-2023 End: 08-20-2023 ambulatory [facility] Start: 08-04-2023 End: 08-04-2023 ambulatory SHARDA SERNAMUM [facility] Start: 08-04-2023 End: 08-04-2023 ambulatory HILARY AVILES [facility] Start: 06-18-2023 End: 06-19-2023 Telephone encounter Ariane [...] [facility] Start: 04-21-2023 End: 04-21-2023 ambulatory [facility] Infusion Chair 4 [facility] Comment on above: Crohn's disease of b oth small and large intestine with intestinal obstruction (CMS-HCC) (Primary Dx) Start: 04-14-2023 Telephone encounter Nic Aguilar [facility] Start: 03-31-2023 Telephone encounter Nic Aguilar [facility] Start: 03-19-2023 End: 03-19-2023 ambulatory [facility] Start: 02-20-2023 End: 02-20-2023 Office outpatient visit 25 minutes Lyndsey Anders MD Work Phone: [facility] Comment on above: Reactive airway dise ase with acute exacerbation, unspecified asthma severity, unspecified whether persistent (Primary Dx); Shortness of breath; COVID-19; Sinusitis, unspecified chronicity, unspecified location Start: 02-20-2023 End: 02-20-2023 ambulatory [facility] Start: 02-17-2023 End: 02-17-2023 ambulatory [facility] Infusion Chair 3 [facility] Comment on above: Crohn's disease of b oth small and large intestine with intestinal obstruction (CMS-HCC) (Primary Dx) Start: 02-06-2023 End: 02-06-2023 ambulatory MJ PIZARRO [facility] Comment on above: Iron deficiency anem ia due to chronic blood loss (Primary Dx); Iron deficiency anemia, unspecified; Iron malabsorption Start: 04-30-2022 End: 04-30-2022 ambulatory SEBASTIAN HERRING Facility: Start: 12-03-2016 End: 12-04-2016 Ambulatory SAMARA HERNANDEZ [facility] Start: 11-19-2016 End: 11-26-2016 Ambulatory SAMARA HERNANDEZ [facility] Start: 10-29-2016 End: 10-30-2016 Ambulatory SAMARA HERNANDEZ [facility] Start: 10-01-2016 End: 10-01-2016 Ambulatory SAMARA HERNANDEZ [facility] Start: 08-29-2016 End: 08-29-2016 Ambulatory SAMARA HERNANDEZ [facility] Procedures Date Procedure Procedure Detail Performing Clinician Start: 03-17-2024 RECURRENT VAGINITIS (HTRX) Yaquelin BELCHER Work Phone: Start: 03-11-2024 US OB CERVICAL LENGTH C orey Courtney DO Work Phone: Start: 02-18-2024 Urnls dip stick/tabl et rgnt non-auto w/o micrscp Parish Courtney DO Work Phone: Start: 02-14-2024 ALL CBC WITH AUTO DIFF Aprish Courtney DO Work Phone: Start: 01-23-2024 Urnls dip stick/tabl et rgnt non-auto w/o micrscp Parish Courtney DO Work Phone: Start: 12-01-2023 Follow-up visit Follow-up DOMINIQUE MOYA Start: 10-31-2023 Follow-up visit Follow-up SHARDA MONTIEL Start: 09-17-2023 Adult depression scr eening assessment Dominique Moya CHIEF RISK OFFICER-IGNITION SPECIALIST Work Phone: Start: 09-17-2023 Microscopic observat ion [Identifier] in Cervix by Cyto stain Dominique Moya CHIEF RISK OFFICER-IGNITION SPECIALIST Work Phone: Start: 11-23-2020 Adult depression scr eening assessment Pfo 3 Plan of Treatment Date Care Activity Detail Author Start: 09-16-2026 Screening for malign ant neoplasm of cervix Pap Smear [facility] Start: 01-30-2025 Adult BMI Screening Adult BMI Screen ing [facility] Start: 01-30-2025 Tobacco Screening Tobacco Screening [facility] Start: 01-02-2025 Adult BMI Screening Adult BMI Screen ing [facility] Start: 01-02-2025 Tobacco Screening Tobacco Screening [facility] Start: 12-11-2024 Adult BMI Screening Adult BMI Screen ing [facility] Start: 12-02-2024 End: 12-02-2024 Patient encounter procedure 12/02/2024 10:15 AM EDT Office Visit Ally [facility] [address] [place] [phone] Mj Pizarro MD [address] [place] [address] [address] [place] [id number] Ally R[facility] Start: 10-30-2024 Adult BMI Screening Adult BMI Screen ing [facility] Start: 10-30-2024 Tobacco Screening Tobacco Screening [facility] Start: 09-16-2024 Depression Screening Depression Scre ening [facility] Start: 05-31-2024 End: 05-31-2024 ambulatory 05/31/2024 10:00 AM EDT Infusion [facility] [address] [facility] [place] [phone] [facility] Start: 04-20-2024 Adult BMI Screening Adult BMI Screen ing [facility] Start: 04-19-2024 End: 04-19-2024 ambulatory 04/19/2024 10:30 AM EDT Infusion [facility] [address] [facility] [place] [phone] [facility] Start: 04-19-2024 End: 04-19-2024 Patient encounter procedure 04/19/2024 10:00 AM EDT Office Visit [facility] [address] [place] [address] [address] [place] [address] Sharda Montiel MD [address] [facility], [address] [place] [address] [facility] Start: 04-14-2024 End: 04-14-2024 Patient encounter procedure 04/14/2024 1:40 PM EST Routine [facility] [address] [facility] [place] [phone] Parish Valdez DO [address] [place] [address] [facility] Start: 03-17-2024 End: 09-14-2024 Alpha fetoprotein, maternal Alpha fetoprotein, maternal Lab Routine Second trimester 19 weeks gestation of Expected: 03/17/2024 (Approximate), Expires: 09/14/2024 [facility] Comment on above: Expected: 03/17/2024 (Approximate), Expires: 09/14/2024 Start: 03-17-2024 End: 03-17-2025 US for US OB 14+ weeks anatomy scan Imaging Routine Screening, , for anatomic survey Expected: 03/17/2024, Expires: 03/17/2025 [facility] Comment on above: Expected: 03/17/2024 , Expires: 03/17/2025 Start: 03-17-2024 End: 03-17-2024 Patient encounter procedure 03/17/2024 10:30 AM EST Routine [facility] [address] [facility] [place] [phone] Yaquelin Horne PA [address] [place] [address] [facility] Start: 03-08-2024 End: 03-08-2024 ambulatory 03/08/2024 10:00 AM EST Infusion [facility] [address] [phone] [facility] Start: 02-21-2024 Adult BMI Screening Adult BMI Screen ing [facility] Start: 02-21-2024 Tobacco Screening Tobacco Screening [facility] Start: 02-18-2024 Adult BMI Screening Adult BMI Screen ing [facility] Start: 02-18-2024 End: 02-18-2024 Patient encounter procedure 02/18/2024 11:30 AM EST Routine [facility] [address] [place] [address] Parish Valdez DO [address] [facility] [address] [place] [place] [address] [facility] Start: 02-07-2024 Tobacco Screening Tobacco Screening [facility] Start: 01-31-2024 Adult BMI Screening Adult BMI Screen ing [facility] Start: 01-31-2024 Tobacco Screening Tobacco Screening [facility] Start: 01-26-2024 End: 01-26-2024 ambulatory 01/26/2024 10:00 AM EST Infusion [facility] [address] [phone] [facility] Start: 01-23-2024 End: [...] first trimester Expected: 01/23/2024 (Approximate), Expires: 01/22/2025 [facility] Comment on above: Expected: 01/23/2024 (Approximate), Expires: 01/22/2025 Start: 01-23-2024 End: 01-22-2025 US Pelvis transvaginal US OB transvaginal Imaging Routine Missed menses Expected: 01/23/2024 (Approximate), Expires: 01/22/2025 [facility] Comment on above: Expected: 01/23/2024 (Approximate), Expires: 01/22/2025 Start: 12-22-2023 End: 12-22-2023 Patient encounter procedure 12/22/2023 3:40 PM EST [facility] [address] [place] [phone] Hilary Aviles, CHIEF RISK OFFICER-IGNITION SPECIALIST [address] [facility] [address], [place] [address] [facility] Start: 12-12-2023 End: 12-12-2023 ambulatory 12/12/2023 10:00 AM EDT Infusion [facility] [address] [phone] [facility] Start: 11-20-2023 End: 11-20-2023 Patient encounter procedure 11/20/2023 1:00 PM EDT Office Visit Ally [facility] Medical Oncology [address] [place] [id number] Mj Pizarro MD [address] [place] [id number] [facility] Start: 10-12-2023 Influenza vaccination Influenza Vacc ine [facility] Start: 06-17-2023 End: 06-17-2023 Patient encounter procedure 06/17/2023 11:15 AM EDT Office Visit [facility] [address] [place], [place] [address] [address] Meaghan King PA-C [address] [address] [facility] Start: 06-10-2023 End: 06-10-2023 ambulatory 06/10/2023 10:30 AM EDT Infusion [facility] [address] [place] [phone] [facility] Start: 04-21-2023 End: 04-21-2023 ambulatory 04/21/2023 10:00 AM EDT Infusion [facility] [address] [phone] [facility] Start: 03-31-2023 End: 03-31-2023 ambulatory 03/31/2023 10:00 AM EST Infusion [facility] [address] [phone] [facility] Start: 02-17-2023 End: 02-17-2023 ambulatory 02/17/2023 11:30 AM EST Infusion [facility] [address] [phone] [facility] Start: 10-11-2022 Influenza vaccination Influenza Vacc ine [facility] Start: 11-23-2021 [facility]ening [facility] Start: 2010 Screening for malign ant neoplasm of cervix Pap Smear [facility] Start: 2008 DTaP,Tdap and Td Vaccines (1 - Tdap) DTaP,Tdap and Td Vaccines (1 - Tdap) [facility] Start: 11-11-2007 Adult BMI Follow Up Plan Adult BMI [facility] [place] Bacteria identified in Urine by Culture Urine culture Microbiology Routine Missed menses Ordered: 01/23/2024 [facility] Comment on above: Ordered: 01/23/2024 CBC W Auto Different ial panel - Blood CBC and differential Lab Routine Missed menses , unspecified gestational age Ordered: 01/23/2024 [facility] Comment on above: Ordered: 01/23/2024 CHLAMYDIA TRACHOMATI S (GENITO/STI) CHLAMYDIA TRACHOMATIS (GENITO/STI) Lab Routine STD exposure Ordered: 03/17/2024 [facility] Comment on above: Ordered: 03/17/2024 Hemoglobin A1c/Hemoglobin.total in Blood Hemoglobin A1c Lab Routine Missed menses , unspecified gestational age Ordered: 01/23/2024 [facility] Comment on above: Ordered: 01/23/2024 Hepatitis B virus surface Ag [Presence] in Serum or Plasma by Immunoassay Hepatitis B surface antigen Lab Routine Missed menses , unspecified gestational age Ordered: 01/23/2024 [facility] Comment on above: Ordered: 01/23/2024 Hepatitis C virus Ab [Presence] in Serum or Plasma by Immunoassay Hepatitis C antibody Lab Routine Missed menses , unspecified gestational age Ordered: 01/23/2024 [facility] Comment on above: Ordered: 01/23/2024 HIV-1/HIV-2 antigen/antibody combination immunoassay HIV-1 and HIV-2 antibodies Lab Routine Missed menses , unspecified gestational age Ordered: 01/23/2024 [facility] Comment on above: Ordered: 01/23/2024 End: 06-08-2024 Mycobacterium TB by Quantiferon Gold Mycobacterium TB by Quantiferon Gold Lab Routine Crohn's disease of both small and large intestine with intestinal obstruction (CMS-HCC) 1 Occurrences starting 06/09/2023 until 06/08/2024 [employer] Phone: Comment on above: 1 Occurrences starti ng 06/09/2023 until 06/08/2024 Neisseria gonorrhoea e DNA [Presence] in Unspecified specimen by ROBERT with probe detection Neisseria gonorrhea DNA probe, direct Lab Routine STD exposure Ordered: 03/17/2024 [facility] Comment on above: Ordered: 03/17/2024 End: 02-07-2023 Oxygen Therapy - Maintain SpO2: 90% or greater; *DIVINITY TEACHER Guidelines for O2: Yes; Document: [email or web address]/Or [email or web address]/Respiratory%20Care% 20Guidelines/CPG%20Oxyge n%[email or web address].pdf Oxygen Therapy - Maintain SpO2: 90% or greater; *DIVINITY TEACHER Guidelines for O2: Yes; Document: [email or web address]/Or ders/Respiratory%20Care% 20Guidelines/CPG%20Oxyge n%[email or web address].pdf Respiratory Care STAT Iron [...] persistent 1 Occurrences starting 02/20/2023 until 02/21/2024 [facility]: Comment on above: 1 Occurrences starti ng 02/20/2023 until 02/21/2024 Reagin Ab [Presence] in Serum by RPR RPR Lab Routine Missed menses , unspecified gestational age Ordered: 01/23/2024 [facility] Comment on above: Ordered: 01/23/2024 Rubella antibody, IgG Rubella an tibody, IgG Lab Routine Missed menses , unspecified gestational age Ordered: 01/23/2024 [facility] Comment on above: Ordered: 01/23/2024 SURESWAB(R) ADVANCED [...] Date Payer Category Payer Medicaid [employer] [facility] MEDICAID [id number] 2022-Present [address] [place] [address] [id number] 2022 Medicaid [id number] 2021 Commercial Managed C are - POS [employer] [id number] 2021 Managed Care O (unspecified) [employer] [id number] [id number] 2021 Private Health Insurance EDU SORENSEN POS II [id number] 2021-Present [phone] [address] [place] [address] [id number]. 2.7.3.573803.315 1989 Unknown [id number] 2.16.840.1.659450.3.579. 2.593 1989 Unknown [id number] 2.16.840.1.857970.3.579. 2.1286 1989 Unknown [id number] 2.16.840.1.678891.3.579. 2.6 1989 Unknown [id number] 2.16.840.1.007484.3.579. 2.1286 1989 Unknown [id number] 2.16.840.1.331004.3.579. 2.1286 1989 Unknown [id number] 2.16.840.1.848181.3.579. 2.1286 1989 Unknown [id number] 2.16.840.1.772769.3.579. 2.1286 1989 Unknown [id number] 2.16.840.1.848717.3.579. 2.1286 1989 Unknown [id number] 2.16.840.1.868455.3.579. 2.1286 1989 Unknown [id number] 2.16.840.1.124703.3.579. 2.1286 1989 Unknown [id number] 2.16.840.1.036558.3.579. 2.1286 1989 Unknown [id number] 2.16.840.1.059378.3.579. 2.1286 1989 Unknown [id number] 2.16.840.1.189727.3.579. 2.1286 1989 Unknown [id number] 2.16.840.1.310792.3.579. 2.1286 1989 Unknown [id number] 2.16.840.1.526069.3.579. 2.1286 1989 Unknown [id number] 2.16.840.1.266502.3.579. 2.1286 1989 Unknown [id number] 2.16.840.1.321400.3.579. 2.1286 1989 Unknown [id number] 2.16.840.1.425028.3.579. 2.1286 1989 Unknown [id number] 2.16.840.1.220514.3.579. 2.1286 1989 Unknown [id number] 2.16.840.1.460377.3.579. 2.1286 1989 Unknown [id number] 2.16.840.1.174906.3.579. 2.1286 1989 Unknown [id number] 2.16.840.1.668340.3.579. 2.9 1989 Unknown [id number] 2.16.840.1.608092.3.579. 2.9 1989 Unknown [id number] 2.16.840.1.805860.3.579. 2.9 1989 Unknown [id number] 2.16.840.1.875322.3.579. 2.1259 1959 Private Health Insurance [id number] Social History Date Type Detail Facility Start: 12-27-2021 End: 10-09-2022 Tobacco smoking status NJIS Never smoked tobacco [facility] Start: 12-27-2021 End: 10-09-2022 Tobacco use and exposure Smokeless tobacco non-user [facility] Start: 02-06-2023 End: 02-20-2023 Alcohol intake Current non-drinker of alcohol (finding) [facility] Start: 02-29-2020 End: 02-20-2023 History of Social function [facility] Start: 02-29-2020 End: 02-20-2023 Tobacco use panel [facility] Adolescent depressio n screening assessment [address] [facility] Start: 1990 Sex Assigned At Not on file [facility] Start: 09-13-2014 Sex Female (finding) [facility] Start: 11-19-[address] [facility] Start: 01-23-2024 End: 03-17-2024 Alcoholic beverage intake Lifetime non-drinker (finding) [facility] Start: 1990 Sex assigned at Female [facility] Start: 09-12-2022 Gender identity Identifies as female gender (finding) [facility] Start: 09-12-2022 Sexual orientation Heterosexual (finding) [facility] Goals Date Patient Goal [...] obtained without difficulty and patient was given [facility] order to have obtained. Orders Placed This Encounter Procedures US OB 14+ weeks anatomy scan CHLAMYDIA TRACHOMATIS (GENITO/STI) Neisseria gonorrhea DNA probe, direct Alpha fetoprotein, maternal Follow Up: Patient is to return to our office in 4 weeks for routine OB appointment Documented by SIMI Frazier on behalf of: SIMI Frazier documented in this encounter [facility] 03-08-2024 History of Present illness Narrative Infusion start time: 1040 Patient here for Avsola infusion. Patient denies any recent infections or on antibiotics, open wounds, recent/future surgery, vaccinations or insurance changes. IV started with 22g needle to left forearm by Yaquelin Barba RN x1 attempt. Patient tolerated well. Avsola Lot# [id number] 2vials Exp- 09/10/2027 Lot#[id number] 2 vials Exp08/10/2027 Time out performed prior to medication administration. Name, , medication(s) verified 10:40 am Time out performed with Yaquelin STREET. Avsola to be mixed and administered to patient per current treatment plan orders 1240 patient infusion complete. IV flushed with 10 ml normal saline. IV discontinued, catheter intact, vitals WNL. Patient tolerated infusion well documented in this encounter [facility] 02-18-2024 History of Present illness [...] nursing note reviewed. Exam conducted with a intensive care medicine specialist present. Vitals: Estimated body mass index is [...] or undercooked meat, and stay away from [facility]. Patient has been consulted regarding any [...] Parish Valdez DO documented in this encounter [facility] 01-23-2024 History of Present illness Narrative Reason [...] or undercooked meat, and stay away from [facility]. Patient has also been advised to [...] Veronica Klein LPN documented in this encounter [facility] 12-17-[address] Montiel, Patient called [...] send a letter to the family doctor/PCP, Toolroom Keeper, and automotive sales associate advising against the use of live vaccines for the 1st 6 months of the baby's life and to monitor the baby closely for any signs of infection. Please send her the following as well: [email or web address] [email or web address]/[email or web address] -[email or web address]-[email or web address] I recommend an OV w me in 02/2024 or 03/2024 Please disregard notes below. Summary These recommendations are in accordance with the findings of the ongoing PIANO study, [facility] [place] Consensus Statements for the Management of Inflammatory [...] clinical care pathway: a report from the [employer] gastro[employer] [facility]renthood project working group. Gastroenterology. 2019;156(5):3849-8524. Spoke with patient regarding recommendations, sent via Odojo. Will call patient back when March schedule is out, she needs Mondays. documented in this encounter [employer] 12-17-[address] Montiel, Patient called stating she took a urine test this past Friday and it was positive. She receives Inflectra 400 mg every 6 weeks for her Crohn's. She also takes Imuran 150 mg po daily. Ziggynita is inquiring if she can continue taking her Imuran and Inflectra infusions? Please advise, thank you [employer] 12-17-2023 Telephone encounter Note Please let her [...] send a letter to the family doctor/PCP, Toolroom Keeper, and automotive sales associate advising against the use of live vaccines for the 1st 6 months of the baby's life and to monitor the baby closely for any signs of infection. Please send her the following as well: [email or web address] [email or web address]/blog/rghqh-zwypa-[email or web address] ct-vah-uyrqyud-ja-[email or web address]-[email or web address] -[email or web address]-zhj-[email or web address] I recommend an OV w me in 02/2024 or 03/2024 Please disregard notes below. Summary These recommendations are in accordance with the findings of the ongoing PIANO study, [facility] [place] Consensus Statements for the Management of Inflammatory [...] clinical care pathway: a report from the comor[employer] gastroenterological association [facility] parenthood project working group. Gastroenterology. 2019;156(5):0960-8637. [employer] 12-17-2023 Telephone encounter Note Spoke with patient regarding recommendations, sent via Odojo. Will call patient back when March schedule is out, she needs Mondays. [employer] 12-12-2023 History of Present illness Narrative Infusion start time: 10:50 am Patient here for Inflectra infusion. Patient denies any recent infections or on antibiotics, open wounds, recent/future surgery, vaccinations or insurance changes. 10:30 am IV started with 22g needle to right hand by JAD Arroyo x1 attempt. Patient tolerated well. Inflectra x 4 vials Lot# [id number] Exp- 04/09/2028 Time out performed prior to medication administration. Name, , medication(s) verified 11:50 am patient infusion complete. IV flushed with 10 ml normal saline. IV discontinued, catheter intact, vitals WNL. Patient tolerated infusion well documented in this encounter [employer] 12-01-2023 History of Present illness Narrative Images from the original note were not included. [facility] [address] [place] [phone] 12/01/2023 Chief Complaint Patient presents with [...] small and large intestine with intestinal obstruction ([facility]) Other Visit Diagnoses Iron deficiency - Primary [...] and communicating with other health career development coordinator/teacher (not separately reported) Documenting clinical information in the electronic or other health record Independently interpreting results (not separately reported) and communicating results to the patient/family/caregiver Care coordination (not separately reported) ---- Please note that portions of this note may have been generated using voice recognition V[employer]olution dictation software. Although every effort was made to ensure the accuracy of any automated transcriptions, some errors may have occurred. TERA Carbajal 12/01/23 1502 [facility] Instructions TERA Carbajal - 12/01/2023 2:30 PM EDT Pending labs If iron is low, will order Injectafer IV If iron is low, will repeat labs in 3 months CBC-d iron panel ferritin If iron is normal, just follow up yearly as below Follow up yearly with labs same as above documented in this encounter [employer] 06-18-2023 Miscellaneous Notes Patient has missed the following appointments: 06/17/23 06/10/23 04/14/23 06/17/22 11/10/20 See other note for follow up documented in this encounter [facility] 06-18-2023 Telephone encounter Note Patient has missed the following appointments: 06/17/23 06/10/23 04/14/23 06/17/22 11/10/[address] [facility] 06-18-2023 Telephone encounter Note See other note for follow up [facility] 06-10-2023 Miscellaneous Notes SANIYA Cheatham and Dr. [...] 06/10/23). No show policy letter sent via [employer] and certified mail. documented in this encounter [facility] 06-10-2023 Telephone encounter Note SANIYA Cheatham and Dr. Montiel, Patient was scheduled today for her Inflectra infusion; was a NO SHOW. She also no showed 04/14/23 Call placed to patient with no answer. Message left for patient to call office back in regards to rescheduling her infusion. [facility] 06-10-2023 Telephone encounter Note Reviewing the chart it appears she has had multiple no shows even prior to this. Please send no-show / late cancellation fee notice and remind her of the no-show policy and that we are tracking this information. If she no-shows again, she may be discharged from the practice per office policy. Thank you. [facility] 06-10-2023 Telephone encounter Note Patient called and rescheduled 06/18/[address] [facility] 06-10-2023 Telephone encounter Note Chaparrita, Patient NO SHOWED for her OV yesterday and did not come to her rescheduled infusion today (she NO SHOWED 06/10/23). [facility] 06-10-2023 Telephone encounter Note No show policy letter sent via [employer] and certified mail. [facility] 04-21-2023 Miscellaneous Notes Due for [...] at 10:30 am documented in this encounter [facility] 04-21-2023 Telephone encounter Note Due for OV [facility] 04-21-2023 Telephone encounter Note There is nothing available for a recheck OV , can we use a new patient slot? [facility] 04-21-2023 Telephone encounter Note Yes that's ok [facility] 04-21-2023 Telephone encounter Note Left message for patient to call and schedule. [facility] 04-21-2023 Telephone encounter Note Message left for patient to call back. [facility] 04-21-2023 Telephone encounter Note Patient is scheduled with Meaghan on June 16 at 11:15 am. Infusion is scheduled on June 09 at 10:[address] [facility] 04-21-2023 History of Present illness Narrative 1020 am Patient here for Inflectra infusion. Patient denies any recent infections, open wounds, recent/future surgery, or insurance changes . IV started with 22g needle to right hand by raf street x 1 attempt. Patient tolerated well. Inflectra x 4 vials Lot #[id number] Exp date 12/11/2027 Time out performed with Raf Delatorre RN. 400 mg of Inflectra to be mixed and administered to patient per current treatment plan orders. 1305 patient infusion complete. IV discontinued, catheter intact, vitals WNL. Patient tolerated infusion well documented in this encounter [facility] 04-14-2023 Miscellaneous Notes Patient missed the visit. RN called patient and RN rescheduled patient for 04/21/2023. documented in this encounter [facility] 04-14-2023 Telephone encounter Note Patient missed the visit. RN called patient and RN rescheduled patient for 04/21/2023. [facility] 03-31-2023 Miscellaneous Notes RN was told that patient is calling regarding her insurance. The phone call was then transferred back to the infusion room. Patient states she lost her secondary insurance and wanted to know to what the amount she will be responsible for. RN informed patient to call her insurance company to find out that information. documented in this encounter [facility] 03-31-2023 Telephone encounter Note RN was told that patient is calling regarding her insurance. The phone call was then transferred back to the infusion room. Patient states she lost her secondary insurance and wanted to know to what the amount she will be responsible for. RN informed patient to call her insurance company to find out that information. [facility] 02-20-2023 History of Present illness Narrative Images from the original note were not included. [address] [place] [phone] Patient: Juan Luis Storey Date of [...] morning. LYNDSEY ANDERS MD Family Medicine Physician [facility] 02/20/23 This note was completed with voice recognition software. The document was reviewed for errors however some may still be present. Please do not hesitate to contact/Epic msg the author to verify any questions/concerns. documented in this encounter [facility] 02-17-2023 History of Present illness Narrative 1145 Patient here for Inflectra infusion. Patient denies any recent infections, open wounds, recent/future surgery, or insurance changes . Site cleansed with alcohol. IV started with 22g needle by Yaquelin Barba RN in right hand. Patient tolerated well. Lot # [id number] Exp 07/11/27 1422 patient infusion complete. IV discontinued at 1422. Patient tolerated infusion well. documented in this encounter [facility] 02-06-2023 History of Present illness Narrative Patient [...] in stable condition. documented in this encounter [facility] note Diagnosis Crohn's disease of both small and large intestine with intestinal obstruction (CMS-HCC)- Primary [facility] Diagnosis Iron deficiency- Primary [...] deficiency anemia, unspecified [facility] Diagnosis Crohn's disease of both small and large intestine with intestinal obstruction (CMS-HCC)- Primary [facility] Diagnosis 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 Other specified intestinal malabsorption Iron deficiency anemia, unspecified [facility] Diagnosis Missed menses , unspecified gestational age Encounter for supervision of normal first in first trimester headache in first trimester documented in this encounter [facility]* Diagnosis Therapeutic drug monitoring- Primary Encounter for therapeutic drug monitoring [facility] Diagnosis Second trimester state, incidental 15 weeks gestation of H/O oligohydramnios in prior , currently documented in this encounter [facility]* Diagnosis Crohn's disease of both small and large intestine with intestinal obstruction (CMS-HCC)- Primary [facility] Diagnosis Second trimester state, incidental 19 weeks gestation of Vaginal discharge Leukorrhea, not specified as infective STD exposure Screening, , for anatomic survey Encounter for anatomic survey documented in this encounter [facility]* Diagnosis 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 deficiency anemia, unspecified Iron malabsorption Other specified intestinal malabsorption [facility] Diagnosis Crohn's disease of both small and large intestine with intestinal obstruction (CMS-HCC)- Primary [facility] Diagnosis Crohn's disease of [...] section and content) DATE CREATED AUTHOR 08/05/2017 [facility] DATE CREATED AUTHOR AUTHOR'S ORGANIZ ATION 06/26/[address] [facility] DATE CREATED AUTHOR AUTHOR'S ORGANIZ ATION 09/19/2023 [facility] DATE CREATED AUTHOR AUTHOR'S ORGANIZ ATION [facility]/03/20[facility] DATE CREATED AUTHOR AUTHOR'S ORGANIZ ATION 03/09/2024 [facility] DATE CREATED AUTHOR AUTHOR'S ORGANIZ ATION 03/19/2024 [facility] dical Specialists EPIC Care Teams (unrecognized sec tion and content) Gift Packer Relationship Specialty Start Date End Date Hilary Aviles APRN-CNP [address] [place] [address] PCP - General Family Medicine 12/26/22 Gift Packer Relationship Specialty Start Date End Date Hilary Aviles APRN-CNP [address] [place] [address] PCP - General Family Medicine 12/26/22 Gift Packer Relationship Specialty Start Date End Date Hilary Aviles APRN-CNP [address], [place] [address] PCP - General Family Medicine 12/26/22 Gift Packer Relationship Specialty Start Date End Date Hilary Aviles APRN-CNP [address], [place] [address] PCP - General Family Medicine 12/26/22 Gift Packer Relationship Specialty Start Date End Date Hilary Aviles APRN-CNP [address], [place] [address] PCP - General Family Medicine 12/26/22 Gift Packer Relationship Specialty Start Date End Date Hilary Aviles APRN-CNP [address], [place] [address] PCP - General Family Medicine 12/26/22 Gift Packer Relationship Specialty Start Date End Date Hilary Aviles [facility]IEF RISK [facility] [address], [place] [address] PCP - General Family Medicine 01/03/24 Gift Packer Relationship Specialty Start Date End Date Hilary Aviles [facility] [address], [place] [address] PCP - General Family Medicine 01/03/24 Gift Packer Relationship Specialty Start Date End Date Hilary Aviles MD [address] [place] [address] Referring Physician Nurse Practitioner 10/08/22 Gift Packer Relationship Specialty Start Date End Date Hilary Aviles, CHIEF RISK [facility] [address], Matthew [facility] [address] PCP - General Family Medicine 01/03/24 Gift Packer Relationship Specialty Start Date End Date Hilary Aviles MD [address] [place] [address] Referring Physician Nurse Practitioner 10/08/22 Gift Packer Relationship Specialty Start Date End Date Hilary Aviles MD [address] [place] [address] Referring Physician Nurse Practitioner 10/08/22 Gift Packer Relationship Specialty Start Date End Date Hilary Aviles MD [address] [facility] [place] [address] Referring Physician Nurse Practitioner 10/08/22 Gift Packer Relationship Specialty Start Date End Date Hilary Aviles APRN-IGNITION SPECIALIST [address], Matthew D [facility] [place] [address] PCP - General Family Medicine 01/03/24 Gift Packer Relationship Specialty Start Date End Date Hilary Aviles MD [address] [place] [address] Referring Physician Nurse Practitioner 10/08/22 Gift Packer Relationship Specialty Start Date End Date Hilary Aviles MD [address] [place] [address] Referring Physician Nurse Practitioner 10/08/22 Gift Packer Relationship Specialty Start Date End Date Hilary Aviles MD [address] [place] [address] Referring Physician Nurse Practitioner 10/08/22 Gift Packer Relationship Specialty Start Date End Date Hilary Aviles APRN-IGNITION SPECIALIST [address], Matthew [facility] [address] PCP - General Family Medicine 12/26/22 Gift Packer Relationship Specialty Start Date End Date Hilary Aviles APRN-IGNITION SPECIALIST [address], [place] [address] PCP - General Family Medicine 12/26/22 Gift Packer Relationship Specialty Start Date End Date Hilary Aviles APRN-LUIGI [address] [place], [place] [address] PCP - General [facility] 12/26/22 Gift Packer Relationship Specialty Start Date End Date Hilary Aviles APRN-CNP [address], [facility] [place] [address] PCP - General Family Medicine 12/26/22 Reason for Visit (unrecogniz ed section and content) Reason Comments Outpatient Infusion Inflectra Specialty Diagnoses / Procedures Referred By Carroll ujan Referred To Contact Gastroenterology Diagnoses Crohn's disease of both small and large intestine with intestinal obstruction Procedures [place] INFLIXIMAB INJECTION Referral ID Status Reason Start Date Expiration Date V isits Requested Visits Authorized [id number] Authorized 04/01/2023 04/01/2024 9 9 Reason Comments Follow-up Specialty Diagnoses / Procedures Referred By Carroll juan Referred To Contact Gastroenterology Diagnoses Crohn's disease of both small and large intestine with intestinal obstruction Procedures [place] INFLIXIMAB INJECTION Reason Comments Amenorrhea Reason Comments [...] INFUSION Hilary Aviles APRN-LUIGI [address] [facility] [address], [place] [address] Phone: tel: fax: [facility] [address] [address] Phone: tel: fax: Referral ID Status Reason Start Date Expiration Date V isits Requested Visits Authorized [id number] Authorized 01/20/2024 01/18/2025 9 9 Reason Comments Outpatient Infusion Injectafer Specialty Diagnoses / Procedures Referred By Contac t Referred To Contact Diagnoses Iron deficiency anemia due to chronic blood loss Iron deficiency anemia, unspecified Iron malabsorption Procedures [place] INJ FERRIC CARBOXYMALTOS 1MG Mj Pizarro MD [address] [place] [address] [facility] [address] [place] [address] Referral ID Status Reason Start Date Expiration Date V isits Requested Visits Authorized [id number] Authorized 01/24/2023 07/23/2023 2 2 Specialty Diagnoses / Procedures Referred By Contac t Referred To Contact Gastroenterology Diagnoses Crohn's disease of both small and large intestine with intestinal obstruction Inflectra 5mg/kg every 6 weeks, Auth'd for 9 visits .[id number], SA/Crohns Procedures [place] INFLIXIMAB INJECTION INFUSION Hilary Aviles, CHIEF RISK OFFICER-IGNITION SPECIALIST [address], [place] [address] [facility] [address] [address] Referral ID Status Reason Start Date Expiration Date V isits Requested Visits Authorized [id number] Pending Review 07/26/2022 07/26/2023 9 9 Reason [...] BE BASED ON THE PRIMARY CLINICAL RECORDS. [employer] [facility]. provides no warranty or guarantee of the accuracy or completeness of information in this document.
[2024-03-26 03:08] LABS: AFP Value 43.4 ng/mL (.); Insulin Dep Diabetes No (.); Maternal Age At EDD 34.7 yr (.); OSBR Risk 1 IN 10000 (.); Results Report (.)
== END 2024-03-24 11:23 | disposition home or self-care (01) ==
LOC: LAB 11:24
PROVIDERS: PCP Nurse Practitioner; Visit Provider Physician Assistant
DX: Z34.92 Encounter for supervision of normal pregnancy, unspecified, second trimester (principal)
CPT/HCPCS: 36415; 82105

== ENCOUNTER 2024-04-18 19:15 | Observation (INO) | payer OTHER, SELFPAY ==
--- OUTSIDE RECORDS SUMMARY | 2024-04-18 19:20 | XMS_ITS | CCD ---
Author Organization [facility] Care Team Providers Care Employment Service Specialist Name Role Phone ADAMOWICZ, SAMARA J Unavailable Unavailable ADAMOWICZ, SAMARA J Unavailable Unavailable ADAMOWICZ, SAMARA J Unavailable Unavailable ADAMOWICZ, SAMARA J Unavailable Unavailable ADAMOWICZ, SAMARA J Unavailable Unavailable ADAMOWICZ, SAMARA J Unavailable Unavailable ADAMOWICZ, SAMARA J Unavailable Unavailable ADAMOWICZ, SAMARA J Unavailable Unavailable SEBASTIAN HERRING Attending Unavailable SEBASTIAN HERRING Consulting Unavailable SEBASTIAN HERRING Admitting Unavailable [facility], DR VELAZCO Primary Care Unavailable HILARY AVILES Attending Unavailable TRACI HILARY A Referring Unavailable TRACI, HILARY A Primary Care Unavailable TRACI HILARY A Attending Unavailable TRACI HILARY A Referring Unavailable TRACI HIALRY A Primary Care Unavailable FRANK AVILESITH A Attending Unavailable TRACI HILARY A Referring Unavailable TRACI, HILARY A Primary Care Unavailable LYNDSEY ANDERS Attending Unavailable FRANK AVILESITH A Referring Unavailable TRACI HILARY A Primary Care Unavailable Hilary Aviles MD Unavailable [phone] MJ PIZARRO Referring Unavailable TRACI, HILARY A Primary Care Unavailable MJ PIZARRO Referring Unavailable TRACI, HILARY A Primary Care Unavailable LYNDSEY ANDERS Attending Unavailable LYNDSEY ANDERS Referring Unavailable TRACI HILARY A Primary Care Unavailable DOMINIQUE MOYA Attending Unavailable TRACI HILARY A Referring Unavailable TRACI, HILARY A Primary Care Unavailable TRACI, HILARY A Primary Care Unavailable RAULITO SIDDIQUI Attending Unavailab le HILARY AVILES A Primary Care Unavailable SESAR PRICE Attending Unavailable Traci PREDATORY ANIMAL HUNTER-ORTHOPEDIC PODIATRIST, Hilary A Primary Care Provi lazarus TRACI, HILARY A Referring Unavailable TRACI, HILARY A Primary Care Unavailable TRACI, HILARY A Referring Unavailable TRACI, HILARY A Primary Care Unavailable TRACI, HILARY A Referring Unavailable TRACI, HILARY A Primary Care Unavailable TRACI, HILARY A Referring Unavailable TRACI, HILARY A Primary Care Unavailable TRACI, HILARY A Referring Unavailable TRACI, HILARY A Primary Care Unavailable ALMADAUMM, SAMEH B Attending Unavailable TRACI, HILARY A Referring Unavailable TRACI, HILARY A Primary Care Unavailable TRACI, HILARY A Referring Unavailable TRACI, HILARY A Primary Care Unavailable ALMADANI, SAMEH B Referring Unavailable TRACI, HILARY A Primary Care Unavailable TRACI, HILARY A Referring Unavailable TRACI, HILARY A Primary Care Unavailable TRACI, HILARY A Referring Unavailable TRACI, HILARY A Primary Care Unavailable Traci PREDATORY ANIMAL HUNTER-ORTHOPEDIC PODIATRIST, Hilary A Primary Care Provi lazarus YAQUELIN HORNE Attending Unavailable PARISH VALDEZ Attending Unavailable YAQUELIN HORNE Attending Unavailable PARISH VALDEZ Attending Unavailable Allergies Allergy Classification Reported Allergen(s) Allergy Type Date of Onset Reaction(s) Facility (20 sources) Sertraline; Translations: [SERTRALINE] Drug Allergy 11-09-2018 Diarrhea [facility] Medications Current Medications Medication Drug Class(es) Dates Sig (Normalized) Sig (Original) [id number] 200 actuat albuterol 0.09 mg/actuat metered dose inhaler (16 sources) beta2-Adrenergic Agonist Start: 11-26-2021 End: 02-20-2023 take 2 puff(s) by inhalation every four hours as needed for wheezing albuterol (PROVENTIL HFA;VENTOLIN HFA) 90 mcg/actuation inhaler Indications: Viral URI with cough Inhale 2 puffs every 4 (four) hours as needed for wheezing. 18 g 0 11/26/2021 02/20/2023 Discontinued Start: 01-22-2021 End: 08-20-2023 take 2 puff(s) by inhalation every six hours as needed for wheezing albuterol (PROVENTIL HFA;VENTOLIN HFA) 90 mcg/actuation inhaler Indications: Reactive airway disease with acute exacerbation, unspecified asthma severity, unspecified whether persistent , Shortness of breath , COVID-19 Inhale 2 puffs every 6 (six) hours as needed for wheezing or shortness of breath. 18 g 0 02/20/2023 Active azaTHIOprine 50 mg oral tablet (20 sources) Purine Antimetabolite Start: 09-07-2021 End: 08-20-2023 take 3 tablets by mouth in the morning azaTHIOprine (Imuran) 50 MG tablet TAKE 3 TABLETS BY MOUTH IN THE MORNING 05/06/2022 Active cholecalciferol 1.25 mg oral capsule (20 sources) Vitamin D Start: 01-27-2024 take 1 capsule by mouth every week cholecalciferol (VITAMIN D3) 50,000 units capsule Take 1 capsule (50,000 Units total) by mouth once a week. 8 capsule 01/27/2024 Active Start: 01-26-2024 take 1 capsule by mo [facility] in the morning cholecalciferol (VITAMIN D3) 50,000 units capsule Take 1 capsule (50,000 Units total) by mouth in the morning. 8 capsule 01/26/2024 Active Start: 10-01-2021 End: 08-20-2023 take 1 tablet by mouth in the morning cholecalciferol, vitamin D3, 5,000 units tablet Take 1 tablet (5,000 Units total) by mouth in the morning. 90 each 3 10/01/2021 08/20/2023 Discontinued cholecalciferol (Vitamin D-3) 25 MCG (1000 UT) capsule 1,000 Units. Active citalopram 20 mg oral tablet (17 sources) Serotonin Reuptake Inhibitor Start: 09-17-2023 take 1.5 tablets by mouth in the morning citalopram (CeleXA) 20 mg tablet Indications: Current moderate episode of major depressive disorder without prior episode ([facility]) Take 1.5 tablets (30 mg total) by mouth in the morning. 30 tablet 2 09/17/2023 Active Start: 08-20-2023 End: 09-17-2023 take 1 tablet by mouth in the morning citalopram (CeleXA) 20 mg tablet Indications: Anxiety Take 1 tablet (20 mg total) by mouth in the morning. 30 tablet 2 08/20/2023 09/17/2023 Discontinued 1 ml EPINEPHrine 1 mg/ml injection (1 source) alpha-Adrenergic Agonist, beta-Adrenergic Agonist, Catecholamine Start: 02-06-2023 End: 02-07-2023 EPINEPHrine (ADRENALIN) 1 mg/mL injection FOR ANAPHYLAXIS 0.3 mg folic acid 1 mg oral tablet (20 sources) Start: 08-02-2021 End: 08-20-2023 take 1 tablet by mouth in the morning folic acid (Folvite) 1 MG tablet Take 1,000 mcg by mouth in the morning. 05/07/2022 Active folic acid 0.4 mg / vitamin b12 1 mg sublingual tablet (20 sources) Vitamin B12 Cobalamin Combinations (B-12) 100-5000 MCG sublingual tablet B12 Active End: 08-20-2023 cyanocobalamin/folic acid (v itamin I29-sswda acid) 1,000-400 mcg lozenge B12 08/20/2023 Discontinued 12 hr guaiFENesin 600 mg extended release [...] mg injection (20 sources) Tumor Necrosis Factor Stephanie inFLIXimab-dyyb (Inflectra) 100 MG injection Infuse 5 [...] venous catheter every 6 (six) weeks. Active End: 07-10-2024 inFLIXimab-dyyb (INFLECTRA) 100 mg injection Indications: Crohn's disease Infuse 5 mg/kg into a venous catheter See Admin Instructions Indications: Crohn's disease. Every 8 weeks 08/20/2023 Discontinued magnesium oxide 400 mg oral tablet (5 [...] Active vitamin b12 1 mg oral tablet (13 sources) Vitamin B12 Start: 05-29-19 21 End: 08-20-19 24 take 2 tablets by mouth in the morning vitamin B-12 1000 MCG tablet Take 2 tablets (2,000 mcg total) by mouth in the morning. 90 tablet 2 02/20/2023 Active Completed/Discontinued Medications Medication Drug Class(es) Dates Sig (Normalized) Sig (Original) ascorbic acid 250 mg oral tablet (12 sources) Vitamin C Start: 05-08-2022 End: 08-20-2023 take 1 tablet by mouth in the morning ascorbic acid, vitamin C, (vitamin C) 250 mg tablet Take 1 tablet (250 mg total) by mouth in the morning. Take with iron.. 90 tablet 3 05/08/2022 08/20/2023 Discontinued benzonatate 100 mg oral capsule (12 sources) Non-narcotic Antitussive Start: 11-26-2021 End: 08-20-2023 take 1 capsule by mouth every eight hours benzonatate (TESSALON PERLES) 100 mg capsule Take 1 capsule (100 mg total) by mouth every 8 (eight) hours. 21 capsule 11/26/2021 08/20/2023 Discontinued ferric carboxymaltose (INJECTAFER) 750 mg in sodium [...] complete. Adjust rates respectively for other volumes. Look-alike/sound-al kierra medication - verify indication for use. Administer using 0.2 - 1.2 micron filter. inFLIXimab-dyyb (INFLECTRA) 400 mg in sodium chloride 0.9 % 250 mL IVPB (3 sources) Start: 08-04-2023 End: 08-04-2023 400 mg, intravenous, Once, On Fri08/04/23 at 1330, For 1 dose, Infuse over at least 2 hours: For 250 mL total volume: 10 mL/hr x 15 min, then 20 mL/hr x 15 min, then 40 mL/hr x 15 min, then 80 mL/hr x 15 min, then 150 mL/hr x 30 min, then 250 mL/hr until infusion complete. Adjust rates respectively for other volumes. Look-alike/sound-al kierra medication - verify indication for use. Administer using 0.2 - 1.2 micron filter. Start: 04-21-2023 End: 04-21-2023 inFLIXimab-dyyb (INFLECTRA) 400 mg in sodium chloride 0.9 % 250 mL IVPB Start: 02-17-2023 End: 02-17-2023 inFLIXimab-dyyb (INFLECTRA) 400 mg in sodium chloride 0.9 % 250 mL IVPB inFLIXimab-dyyb (INFLECTRA) 5 mg/kg = 400 mg in sodium chloride 0.9 % 250 mL IVPB (3 sources) Start: 12-12-2023 End: 12-12-2023 400 mg (rounded [...] Administer using 0.2 - 1.2 micron filter. Start: 10-31-2023 End: 10-31-2023 400 mg (rounded from 379 mg = 5 mg/kg 75.8 kg), intravenous, Once, On Fri10/31/23 at 1000, For 1 dose, May have accelerated infusion [...] Administer using 0.2 - 1.2 micron filter. Start: 09-15-2023 End: 09-15-2023 400 mg (rounded from 366.5 m g = 5 mg/kg 73.3 kg), intravenous, Once, On Fri09/15/23 at 1145, For 1 dose, May have accelerated infusion [...] 1000 ml sodium chloride 9 mg/ml injection (8 sources) Start: 03-08-2024 End: 03-08-2024 take 25 mL intravenously every hour as needed 25 mL/hr, intravenous, Continuous PRN, When mainline IV needed., Starting on Fri03/08/24 at 1018, Match IVF to base solution of product being administered to ensure compatibility. Start: 10-31-2023 take 25 mL intraveno usly every hour as needed 25 mL/hr, intravenous, Continuous PRN, When mainline IV needed., Starting on Fri10/31/23 at 0951, Match IVF to base solution of product being administered to ensure compatibility. Start: 09-15-2023 End: 09-15-2023 take 25 mL intravenously every hour as needed 25 mL/hr, intravenous, Continuous PRN, When mainline IV needed., Starting on Fri09/15/23 at 1133, Match IVF to base solution of product being administered to ensure compatibility. Start: 08-04-2023 End: 08-04-2023 take 25 mL intravenously every hour as needed 25 mL/hr, intravenous, Continuous PRN, When mainline IV needed., Starting on Fri08/04/23 at 1324, Match IVF to base solution of product being administered to ensure compatibility. Start: 04-21-2023 End: 04-21-2023 sodium chloride 0.9 % infusi on Start: 02-17-2023 End: 02-17-2023 sodium chloride 0.9 % infusi on Start: 02-06-2023 End: 02-07-2023 sodium chloride 0.9 % bolus WESTAB PLUS 27 mg iron- 1 mg tablet (12 sources) Start: 06-07-2022 End: 08-20-2023 WESTAB PLUS 27 mg iron- 1 mg tablet 06/07/2022 08/20/2023 Discontinued Start: 06-07-2022 WESTAB PLUS 27 mg iron- 1 mg tablet 06/07/2022 Active Start: 06-07-2022 WESTAB PLUS 27 mg iron- 1 mg tablet Problems Active Problems Problem Classification Problem Date Documented Da te Episodic/Chronic Anxiety disorders (20 sources) Anxiety; Translations: [Anxiety disorder, unspecified] Onset: 12-14-2018 12-14-2018 Chronic Asthma (4 sources) Unspecified asthma with (acute) exacerbation; Translations: [Asthma] Onset: 02-20-2023 02-20-2023 Chronic Deficiency and other anemia (2 sources) Iron deficiency anemia secondary to blood loss (chronic); Translations: [Iron deficiency anemia secondary to blood loss (chronic)] Onset: 07-17-2018 Chronic Deficiency and other anemia (20 sources) Iron deficiency anemia due to blood loss; Translations: [Iron deficiency anemia secondary to blood loss (chronic)] Onset: 07-17-2018 07-17-2018 Chronic E Codes: Fall (1 source) [...] unspecified] 01-23-2024 Chronic Mood disorders (20 sources) Major depressive disorder, single episode, moderate; Translations: [Major depressive disorder, single episode, unspecified] Onset: 11-09-2018 11-09-2018 Chronic Other aftercare (2 sources) Patient encounter status; Translations: [Encounter for therapeutic [...] obstetric history, unspecified trimester] 02-18-2024 Episodic Other female genital disorders (2 sources) Vaginal discharge; Translations: [Other specified noninflammatory disorders of vagina] 03-17-2024 Episodic Other gastrointestinal disorders (1 source) Intestinal malabsorption, unspecified; Translations: [Intestinal malabsorption, unspecified] Onset: 08-28-2020 Chronic Other gastrointestinal disorders (20 sources) Malabsorption - iron; Translations: [Intestinal malabsorption, unspecified] Onset: 08-28-2020 08-28-2020 Chronic Other gastrointestinal disorders (1 source) Constipation, unspecified; Translations: [Constipation, unspecified] Onset: 01-03-2024 Episodic Other gastrointestinal disorders (1 source) Constipation Onset: 01-03-2024 Episodic Other inflammatory condition of skin (20 sources) Scalp psoriasis; 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, unspecified] Onset: 12-14-2018 12-14-2018 Chronic Other and delivery including normal (8 sources) ; Translations: [Encounter for supervision of normal , unspecified, unspecified trimester] 01-23-2024 Episodic Other screening for suspected conditions (not mental disorders or infectious disease) (8 sources) Encounter for screening for malignant neoplasm of cervix; Translations: [Patient encounter status] Onset: 04-30-2022 Episodic Other upper respiratory infections (2 sources) Chronic sinusitis, unspecified; Translations: [Sinusitis] Onset: 02-20-2023 02-20-2023 Chronic Regional enteritis and ulcerative colitis (20 sources) Crohn's disease of both small and large intestine with intestinal obstruction; Translations: [Crohn's disease of small AND large intestines] Onset: 03-03-2018 03-03-2018 Chronic Residual codes; unclassified (1 source) 12 weeks gestation of ; Translations: [12 weeks gestation of ] Onset: 01-31-2024 Episodic Residual codes; unclassified (2 sources) Gestation period, 15 weeks; Translations: [15 weeks gestation of ] 02-18-2024 Episodic Residual codes; unclassified (2 sources) Gestation period, 19 weeks; Translations: [19 weeks gestation of ] 03-17-2024 Episodic Residual codes; unclassified (2 sources) Gestation period, 23 weeks; Translations: [23 weeks gestation of ] 04-14-2024 Episodic Unclassified (1 source) FMLA Onset: 09-03-2023 Unclassified (1 source) Constipation, Early Onset: 01-03-2024 Unclassified (2 sources) Outpatient Infusion Onset: 02-06-2023 Viral infection (1 source) COVID-19; Translations: [COVID-19] Onset: 01-22-2021 Past or Other Problems Problem Classification Problem Date Documented Da te Episodic/Chronic Deficiency and other anemia (2 sources) Iron deficiency anemia, unspecified; Translations: [Iron deficiency anemia, unspecified] Onset: 08-28-2020 Episodic Deficiency and other anemia (20 sources) Microcytic anemia; Translations: [Iron deficiency anemia, unspecified] Onset: 07-17-2018 07-17-2018 Episodic Deficiency and other anemia (20 sources) Anemia; Translations: [Anemia, unspecified] Onset: 07-02-2019 07-02-2019 Episodic Deficiency and other anemia (20 sources) Iron deficiency anemia; Translations: [Iron deficiency anemia, unspecified] Onset: 08-28-2020 08-28-2020 Episodic Intestinal obstruction without hernia (20 sources) Intestinal obstruction; Translations: [Unspecified intestinal obstruction, unspecified as to partial versus complete obstruction] Onset: 10-17-2017 Resolved: 08-29-2020 08-29-2020 Episodic Mood disorders (20 sources) Mood disorders Onset: 08-20-2023 Resolved: 09-17-2023 09-17-2023 Nutritional deficiencies (20 sources) Cobalamin deficiency; Translations: [Deficiency of other specified B group vitamins] Onset: 07-08-2019 07-08-2019 Episodic Other bone disease and musculoskeletal deformities (20 sources) Bone cyst of foot; Translations: [Other cyst of bone, unspecified ankle and foot] Onset: 11-11-2022 11-11-2022 Episodic Other complications of (20 sources) Anemia; Translations: [Anemia complicating , unspecified trimester] Onset: 05-15-2017 Resolved: 04-21-2018 04-21-2018 Chronic Other complications of (20 sources) History of fourth degree perineal laceration; Translations: [Supervision of with other poor reproductive or obstetric history, unspecified trimester] Onset: 06-21-2017 Resolved: 08-29-2020 08-29-2020 Episodic Other complications of (20 sources) History of gynecological disorder; Translations: [Supervision of with other poor reproductive or obstetric history, unspecified trimester] Onset: 06-21-2017 Resolved: 08-29-2020 08-29-2020 Episodic Other connective tissue disease (20 sources) Pain in both feet; Translations: [Pain in right foot] Onset: 12-14-2018 12-14-2018 Episodic Other connective tissue disease (20 sources) Chronic pain of right foot; Translations: [Pain in right foot] Onset: 09-18-2022 09-18-2022 Episodic Other connective tissue disease (1 source) Cramp in lower limb; Translations: [Cramp and spasm] 12-01-2023 Episodic Other disorders of stomach and duodenum (20 sources) Internal duodenal fistula; 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] Onset: 06-04-2018 Resolved: 05-08-2022 05-08-2022 Episodic Other gastrointestinal disorders (20 sources) Diarrhea; Translations: [Diarrhea, unspecified] Onset: 10-17-2017 Resolved: 05-08-2022 05-08-2022 Episodic Other lower respiratory disease (1 source) Shortness of breath; Translations: [Shortness of breath] Onset: 02-20-2023 Episodic Other lower respiratory disease (20 sources) Cough; Translations: [Cough] Onset: 12-20-2019 Resolved: 09-27-2020 09-27-2020 Episodic Other lower respiratory disease (20 sources) Dyspnea; Translations: [Shortness of breath] Onset: 01-22-2021 Resolved: 05-08-2022 05-08-2022 Episodic Other non-traumatic joint disorders (20 sources) Pain in left knee; Translations: [Pain in joint, lower leg] Onset: 12-23-2018 12-23-2018 Episodic Other upper respiratory disease (20 sources) Congestion of nasal sinus; Translations: [Nasal congestion] Onset: 12-21-2020 12-21-2020 Episodic Other upper respiratory infections (20 sources) Sore throat symptom; Translations: [Acute pharyngitis, unspecified] Onset: 12-20-2019 Resolved: 05-08-2022 05-08-2022 Episodic Residual codes; unclassified (20 sources) Difficulty sleeping ; Translations: [Sleep disorder, unspecified] Onset: 01-13-2019 01-13-2019 Episodic Residual codes; unclassified (1 source) Noncompliance with treatment; Translations: [Noncompliance] 12-01-2023 Episodic Viral infection (20 sources) Disease caused by 2019-nCoV; Translations: [COVID-19] Onset: 01-22-2021 01-22-2021 Episodic Results Test Name Value Interpretation Reference Range Facility No Panel Informationon 03-24 Radiology Study observation (narrative) [facility] OB ANATOMYon 03-24-2024 [place] [address] Ultrasound Report Signed Patient: JUAN LUIS STOREY MR#: [id number] : 1990 Acct:[id number] Age/Sex: 33 / F ADM Date: 03/24/24 Loc: US Attending Dr: Parish Valdez D.O. Ordering Physician: Parish Valdez D.O. Date of Service: 03/24/24 Procedure(s): US OB anatomy Accession Number(s): [id number] cc: Parish Valdez D.O.; Hilary Aviles NP [address] [address] Patient Name: JUAN LUIS STOREY MRN: [id number] date: 1990 Sex: F Assigned Patient Location: US Current Patient Location: US Accession/Order Number: [id number] Exam Date: 03/24/2024 10:45 Report Date: 03/24/2024 11:36 At the request of: PARISH COURTNEY Procedure: US OB anatomy EXAMINATION: US OB anatomy, US OB cervical length HISTORY: Screening Anatomic Survey COMPARISON: No relevant comparison available. TECHNIQUE: Transabdominal sonographic examination was performed for obstetrical and evaluation. FINDINGS: Number: 1 Heart Rate: 151.69 bpm H.B. /min Amniotic Fluid Volume: Subjectively normal Placental Location: Posterior, grade 0. The placental edge is 4.9 cm from the internal cervical os Cervix Length: 4.60 cm , closed position: Cephalic presentation Normal anatomy: Lateral ventricles, cerebellum, posterior fossa, nose, lips, orbits, four-chamber heart, RVOT, LVOT, diaphragm, kidneys, abdominal cord insertion, bladder, umbilical arteries, three-vessel cord, spine, extremities Not visualized: stomach BIOMETRY: BPD: 4.44 cm; 19 weeks 3 days; 26.10 % HC: 16.24 cm; 19 weeks 0 days; 7.40 % AC: 15.06 cm; 20 weeks 2 days; 54.60 % FL: 3.13 cm; 19 weeks 5 days; 31.70 % EFW:320.16 g; 39.90 % FL/AC: 20.76 FL/BPD: 70.44 HC/AC: 1.08 GESTATIONAL AGE: Age by EDC: 20 weeks 0 days ALEJANDRA by EDC: 2024-08-11 Age by current US: 19 weeks 4 days ALEJANDRA by current US: 2024-08-14 US/US OB anatomy IMPRESSION: Nonvisualization of the stomach, otherwise normal anatomy scan. *Reference: [employer] Practice Guideline for the performance of Obstetric Ultrasound Examinations, 2006. Electronically authenticated by: SESAR PHAN Date: 03/24/2024 11:36 Dictated By: Sesar Phan M.D. Signed By: 03/24/24 1139 DD/ 1136 TD/TT: Roll Capper: [facility] Radiology, Radiologi MD perla - 03/24/2024 [place] [address] Ultrasound Report Signed Patient: JUAN LUIS STOREY MR#: [id number] : 1990 Acct:[id number] Age/Sex: 33 / F ADM Date: 03/24/24 Loc: US Attending Dr: Parish Valdez D.O. Ordering Physician: Parish Valdez D.O. Date of Service: 03/24/24 Procedure(s): US OB anatomy Accession Number(s): [id number] cc: Parish Valdez D.O.; Hilary Aviles NP [place] [address] Patient Name: JUAN LUIS STOREY MRN: [id number] date: 1990 Sex: F Assigned Patient Location: US Current Patient Location: US Accession/Order Number: [id number] Exam Date: 03/24/2024 10:45 Report Date: 03/24/2024 11:36 At the request of: PARISH VALDEZ Procedure: US OB anatomy EXAMINATION: US OB anatomy, US OB cervical length HISTORY: Screening Anatomic Survey COMPARISON: No relevant comparison available. TECHNIQUE: Transabdominal sonographic examination was performed for obstetrical and evaluation. FINDINGS: Number: 1 Heart Rate: 151.69 bpm H.B. /min Amniotic Fluid Volume: Subjectively normal Placental Location: Posterior, grade 0. The placental edge is 4.9 cm from the internal cervical os Cervix Length: 4.60 cm , closed position: Cephalic presentation Normal anatomy: Lateral ventricles, cerebellum, posterior fossa, nose, lips, orbits, four-chamber heart, RVOT, LVOT, diaphragm, kidneys, abdominal cord insertion, bladder, umbilical arteries, three-vessel cord, spine, extremities Not visualized: stomach BIOMETRY: BPD: 4.44 cm; 19 weeks 3 days; 26.10 % HC: 16.24 cm; 19 weeks 0 days; 7.40 % AC: 15.06 cm; 20 weeks 2 days; 54.60 % FL: 3.13 cm; 19 weeks 5 days; 31.70 % EFW:320.16 g; 39.90 % FL/AC: 20.76 FL/BPD: 70.44 HC/AC: 1.08 GESTATIONAL AGE: Age by EDC: 20 weeks 0 days ALEJANDRA by EDC: 2024-08-11 Age by current US: 19 weeks 4 days ALEJANDRA by current US: 2024-08-14 US/US OB anatomy IMPRESSION: Nonvisualization of the stomach, otherwise normal anatomy scan. *Reference: [employer] Practice Guideline for the performance of Obstetric Ultrasound Examinations, 2006. Electronically authenticated by: SESAR PHAN Date: 03/24/2024 11:36 Dictated By: Sesar Phan M.D. Signed By: 03/24/24 1139 DD/ 1136 TD/TT: Roll Capper: [employer] US OB ANATOMYOrdered By: Sergio headogbruna Radiology on 03-24-2024 [employer] Work Phone: US OB CERVICAL LENGTHon 03-13 [place] [address] Ultrasound Report Signed Patient: JUAN LUIS STOREY MR#: [id number] : 1990 Acct:[id number] Age/Sex: 33 / F ADM Date: 03/24/24 Loc: US Attending Dr: Parish Valdez D.O. Ordering Physician: Parish Valdez D.O. Date of Service: 03/24/24 Procedure(s): US OB cervical length Accession Number(s): [id number] cc: Parish Valdez D.O.; Hilary Aviles NP [place] [address] Patient Name: JUAN LUIS STOREY MRN: [facility]:[id number] date: 1990 Sex: F Assigned Patient Location: US Current Patient Location: US Accession/Order Number: [id number] Exam Date: 03/24/2024 10:45 Report Date: 03/24/2024 11:36 At the request of: PARISH VALDEZ Procedure: US OB cervical length EXAMINATION: US OB anatomy, US OB cervical length HISTORY: Screening Anatomic Survey COMPARISON: No relevant comparison available. TECHNIQUE: Transabdominal sonographic examination was performed for obstetrical and evaluation. FINDINGS: Number: 1 Heart Rate: 151.69 bpm H.B. /min Amniotic Fluid Volume: Subjectively normal Placental Location: Posterior, grade 0. The placental edge is 4.9 cm from the internal cervical os Cervix Length: 4.60 cm , closed position: Cephalic presentation Normal anatomy: Lateral ventricles, cerebellum, posterior fossa, nose, lips, orbits, four-chamber heart, RVOT, LVOT, diaphragm, kidneys, abdominal cord insertion, bladder, umbilical arteries, three-vessel cord, spine, extremities Not visualized: stomach BIOMETRY: BPD: 4.44 cm; 19 weeks 3 days; 26.10 % HC: 16.24 cm; 19 weeks 0 days; 7.40 % AC: 15.06 cm; 20 weeks 2 days; 54.60 % FL: 3.13 cm; 19 weeks 5 days; 31.70 % EFW:320.16 g; 39.90 % FL/AC: 20.76 FL/BPD: 70.44 HC/AC: 1.08 GESTATIONAL AGE: Age by EDC: 20 weeks 0 days ALEJANDRA by EDC: 2024-08-11 Age by current US: 19 weeks 4 days ALEJANDRA by current US: 2024-08-14 US/US OB cervical length IMPRESSION: Nonvisualization of the stomach, otherwise normal anatomy scan. *Reference: [employer] Practice Guideline for the performance of Obstetric Ultrasound Examinations, 2006. Electronically authenticated by: SESAR PHAN Date: 03/24/2024 11:36 Dictated By: Sesar Phan M.D. Signed By: 03/24/24 1138 DD/ 1136 TD/TT: Roll Capper: [facility] Radiology, Radiologi MD perla - 03/24/2024 [facility] [place] [id number] Ultrasound Report Signed Patient: JUAN LUIS STOREY MR#: [id number] : 1990 Acct:[id number] Age/Sex: 33 / F ADM Date: 03/24/24 Loc: US Attending Dr: Parish Valdez D.O. Ordering Physician: Parish Valdez D.O. Date of Service: 03/24/24 Procedure(s): US OB cervical length Accession Number(s): [id number] cc: Parish Valdez D.O.; Hilary Aviles NP [place] [id number] Patient Name: JUAN LUIS STOREY MRN: [id number] date: 1990 Sex: F Assigned Patient Location: US Current Patient Location: US Accession/Order Number: [id number] Exam Date: 03/24/2024 10:45 Report Date: 03/24/2024 11:36 At the request of: PARISH VALDEZ Procedure: US OB cervical length EXAMINATION: US OB anatomy, US OB cervical length HISTORY: Screening Anatomic Survey COMPARISON: No relevant comparison available. TECHNIQUE: Transabdominal sonographic examination was performed for obstetrical and evaluation. FINDINGS: Number: 1 Heart Rate: 151.69 bpm H.B. /min Amniotic Fluid Volume: Subjectively normal Placental Location: Posterior, grade 0. The placental edge is 4.9 cm from the internal cervical os Cervix Length: 4.60 cm , closed position: Cephalic presentation Normal anatomy: Lateral ventricles, cerebellum, posterior fossa, nose, lips, orbits, four-chamber heart, RVOT, LVOT, diaphragm, kidneys, abdominal cord insertion, bladder, umbilical arteries, three-vessel cord, spine, extremities Not visualized: stomach BIOMETRY: BPD: 4.44 cm; 19 weeks 3 days; 26.10 % HC: 16.24 cm; 19 weeks 0 days; 7.40 % AC: 15.06 cm; 20 weeks 2 days; 54.60 % FL: 3.13 cm; 19 weeks 5 days; 31.70 % EFW:320.16 g; 39.90 % FL/AC: 20.76 FL/BPD: 70.44 HC/AC: 1.08 GESTATIONAL AGE: Age by EDC: 20 weeks 0 days ALEJANDRA by EDC: 2024-08-11 Age by current US: 19 weeks 4 days ALEJANDRA by current US: 2024-08-14 US/US OB cervical length IMPRESSION: Nonvisualization of the stomach, otherwise normal anatomy scan. *Reference: [employer] Practice Guideline for the performance of Obstetric Ultrasound Examinations, 2006. Electronically authenticated by: SESAR PHAN Date: 03/24/2024 11:36 Dictated By: Sesar Phan M.D. Signed By: 03/24/24 1138 DD/ 1136 TD/TT: Roll Capper: [facility] OB CERVICAL LENGTHOrdered By: Radiologist Radiology on 03-24-2024 [facility] Work Phone: RECURRENT VAGINITIS (HTRX)on 03-18-2024 ATOPOBIUM VAGINAE 0 [facility] ATOPOBIUM VAGINAE Not detected [facility] BVAB 2,3 (BACTERIAL VAGINOSIS ASSOCIATED BACTERIA 2, 3); MOBILUNCUS SPP 0 [facility] BVAB 2,3 (BACTERIAL VAGINOSIS ASSOCIATED BACTERIA 2, 3); MOBILUNCUS SPP Not detected [facility] WARD ALBICANS, PARAPSILOSIS, TROPICALIS 0 [facility] WARD ALBICANS, PARAPSILOSIS, TROPICALIS Not detected [facility] WARD GLABRATA 0 [facility] WARD GLABRATA Not detected [facility] WARD KRUSEI 0 [facility] WARD KRUSEI Not detected [facility] CHLAMYDIA TRACHOMATIS 0 [facility] CHLAMYDIA TRACHOMATIS Not detected [facility] GARDNERELLA VAGINALIS 0 [facility] GARDNERELLA VAGINALIS Not detected [facility] MEGASPHAERA (TYPES 1, 2) 0 [facility] MEGASPHAERA (TYPES 1, 2) Not detected [facility] MYCOPLASMA GENITALIUM 0 [facility] MYCOPLASMA GENITALIUM Not detected [facility] NEISSERIA GONORRHOEAE 0 [facility] NEISSERIA GONORRHOEAE Not detected [facility] TRICHOMONAS VAGINALIS 0 [facility] TRICHOMONAS VAGINALIS Not detected [facility] OB CERVICAL LENGTHon 02-12 [place] [address] Ultrasound Report Signed Patient: JUAN LUIS STOREY MR#: [id number] : 1990 Acct:[id number] Age/Sex: 33 / F ADM Date: 03/11/24 Loc: US Attending Dr: Parish Valdez D.O. Ordering Physician: Parish Valdez D.O. Date of Service: 03/11/24 Procedure(s): US OB cervical length Accession Number(s): [id number] cc: Parish Valdez D.O.; Hilary Aviles NP [facility] [place] [id number] Patient Name: JUAN LUIS STOREY MRN: [facility]:[id number] date: 1990 Sex: F Assigned Patient Location: US Current Patient Location: US Accession/Order Number: [id number] Exam Date: 03/11/2024 10:15 Report Date: 03/11/2024 [...] Signed By: 03/11/24 1056 DD/ 1053 TD/TT: Roll Capper: [facility] Radiology, Radiologaditya duncan MD - 03/11/2024 [place] [address] Ultrasound Report Signed Patient: JUAN LUIS STOREY MR#: [id number] : 1990 Acct:[id number] Age/Sex: 33 / F ADM Date: 03/11/24 Loc: US Attending Dr: Parish Valdez D.O. Ordering Physician: Parish Valdez D.O. Date of Service: 03/11/24 Procedure(s): US OB cervical length Accession Number(s): [id number] cc: Parish Valdez D.O.; Hilary Aviles NP [facility] [place] [id number] Patient Name: JUAN LUIS STOREY MRN: [facility]:[id number] date: 1990 Sex: F Assigned Patient Location: US Current Patient Location: US Accession/Order Number: [id number] Exam Date: 03/11/2024 10:15 Report Date: 03/11/2024 [...] Signed By: 03/11/24 1056 DD/ 1053 TD/TT: Roll Capper: [facility] Radiology Study observation (narrative) [facility] US OB CERVICAL LENGTHOrdered By: Radiologist Radiology on 03-11-2024 [facility] Work Phone: Urinalysis macro (dipstick) panel (U)on 02-18-2024 Bilirubin, UA Negative Negative - 4(70) +++ mg/dL [facility] Blood, UA Positive Negative - 50 Enrrique/mcL [facility] Comment on above: trace Clarity, UA Clear [facility] Color, UA Yellow [facility] Glucose, UA Negative Negative - 1999(110) ++++ mg/dL [facility] Interpretation and review of laboratory results Abnormal [facility] Ketones, UA Positive Negative - 160(16) ++++ mg/dL [facility] Comment on above: trace Leukocytes, UA Trace Negative - 500+++ Cam/mcL [facility] Nitrite, UA Negative Negative - Positive [facility] pH, UA 7 5 - 9 [facility] Protein, UA Positive Negative - 2000(20) ++++ mg/dL [facility] Comment on above: 30 Spec Grav, UA 1.03 1 - 1.03 [facility] Urobilinogen, UA 1.0 0.2 - 12 mg/dL [facility] ALL CBC WITH AUTO DIFFon BASOPHILS ABSOLUTE AUTO 0 [facility] Basophils/100 WBC (Bld) 0.2 % 0.2 - 2.0 % [facility] Eosinophils/100 WBC (Bld) 0.9 % 0.9 - 7.0 % [facility] Erythrocyte distribution width (RBC) [Ratio] 12.5 % 11.0 - 15.0 % [facility] Hematocrit (Bld) [Volume fraction] 35.3 % Low 36.0 - 48.0 % [facility] Hemoglobin (Bld) [Mass/Vol] 11.8 g/dL Low 12.0 - 16.0 g/dL [facility] IMMATURE GRANULOCYTES ABS AUTO 0.03 [facility] Immature granulocytes/100 WBC (Bld) 0.4 % 0.0 - 0.5 % [facility] Interpretation and review of laboratory results Abnormal [facility] LYMPHOCYTES ABSOLUTE AUTO 2.4 [facility] Lymphocytes/100 WBC (Bld) 29.2 % 20.5 - 60.0 % [facility] MCH (RBC) [Entitic mass] 32 pg 26.7 - 34.0 pg [facility] MCHC (RBC) [Mass/Vol] 33.4 g/dL 29.9 - 35.2 g/dL [facility] MCV (RBC) [Entitic vol] 95.7 fL 81.0 - 99.0 fL [facility] MONOCYTES ABSOLUTE AUTO 0.5 [facility] Monocytes/100 WBC (Bld) 6.5 % 1.7 - 12.0 % [facility] NEUTROPHILS ABSOLUTE AUTO 5.1 [facility] Neutrophils/100 WBC (Bld) 62.8 % 43.0 - 75.0 % [facility] Platelet mean volume (Bld) [Entitic vol] 12 fL 9.5 - 13.5 fL [facility] TBH EO # 0.1 [facility]H PLT 194 [facility] TB RBC 3.69 Low [facility] TB WBC 8.2 [facility] BASIC METABOLIC PANLon 01-25 Anion gap [Moles/Vol] 9 mmol/L Normal 5-15 [facility] Comment on above: Performed By: #### C BREANNA, ILEANA, 1988-06, LIVR, 2131-10, 11926-5, 58304-4 #### [facility] ([id number]) [address] [place] [address], [address] [place] [address] #### THMET #### [facility] ([id number]) [address] [facility], Calcium [Mass/Vol] 8.6 mg/dL Normal 8.5-10.5 [facility] Comment on above: Performed By: #### C BC, BMP, 1988-06, LIVR, 2131-10, 58652-9, 20429-6 #### [facility] ([id number]) [address] [place] [address], [address] [place] [address] #### THMET #### [facility] ([id number]) [address] [place] [address], Chloride [Moles/Vol] 104 mmol/L Normal 98-109 [facility] Comment on above: Performed By: #### C BC, BMP, 1988-06, LIVR, 2131-10, 24929-4, 51868-2 #### [facility] ([id number]) [address] [place] [address], [address] [place] [address] #### THMET #### [facility] ([id number]) [address] [place] [address], CO2 [Moles/Vol] 21 mmol/L Low 22-32 [facility] Comment on above: Performed By: #### C BC, BMP, 1988-06, LIVR, 2131-10, 93081-2, 21788-1 #### [facility] ([id number]) [address] [place] [address], [address] [place] [address] #### THMET #### [facility] ([id number]) [address] [facility], Creatinine [Mass/Vol] 0.56 mg/dL Normal 0.40-1.00 [facility] Comment on above: Result Comment: METH OD TRACEABLE TO IDMS STANDARD Performed By: #### C ILEANA CARLOS, 1988-06, LIVR, 2131-10, 58241-6, 51942-4 #### [facility] ([id number]) [address], [address] [place] [address] #### THMET #### [facility] ([id number]) [address] [facility], eGFR (CKD-EPI) NON-RACE DEPENDENT >90 Normal >59 [facility] Comment on above: Result Comment: Reported eGFR is based on the CKD-EPI 2020 equation that does not use a race coefficient. Performed By: #### C ILEANA CARLOS, 1988-06, LIVR, 2131-10, 88657-0, 77627-2 #### [facility] ([id number]) [address] [facility], [address] [place] [address] #### THMET #### [facility] ([id number]) [address] [facility], Glucose [Mass/Vol] 73 mg/dL Normal 65-99 [facility] Comment on above: Performed By: #### C ILEANA CARLOS, 1988-06, LIVR, 2131-10, 62050-4, 59319-9 #### [facility] ([id number]) [address] [facility], [address] [place] [address] #### THMET #### [facility] ([id number]) [address] [facility], Potassium [Moles/Vol] 3.8 mmol/L Normal 3.5-5.0 [facility] Comment on above: Performed By: #### C ILEANA CARLOS, 1988-06, LIVR, 2131-10, 60651-3, 83048-8 #### [facility] ([id number]) [address] [facility], [address] [place] [address] #### THMET #### [facility] ([id number]) [address] [facility], Sodium [Moles/Vol] 134 mmol/L Normal 134-146 [facility] Comment on above: Performed By: #### C BREANNA, BMP, 1988-06, LIVR, 2131-10, 12529-0, 30808-9 #### [facility] ([id number]) [address] [place] [address], [address] [place] [address] #### THMET #### [facility] ([id number]) [address] [place] [address], Urea nitrogen [Mass/Vol] 6 mg/dL Normal 5-23 [facility] Comment on above: Performed By: #### C BREANNA BMP, 1988-06, LIVR, 2131-10, 34753-6, 63470-4 #### [facility] ([id number]) [address] [place] [address], [address] [place] [address] #### THMET #### [facility] ([id number]) [address] [place] [address], COMPLETE BLOOD COUNTon 01-25 Erythrocyte distribution width (RBC) [Ratio] 13.7 % Normal 11.5-15.0 [facility] Comment on above: Performed By: #### C BREANNA BMP, 1988-06, LIVR, 2131-10, 01410-2, 00168-3 #### [facility] ([id number]) [address] [place] [address], [address] [place] [address] #### THMET #### [facility] ([id number]) [address] [place] [address], Hematocrit (Bld) [Volume fraction] 38.5 % Normal 35-47 [facility] Comment on above: Performed By: #### C BC, BMP, 1988-06, LIVR, 2131-10, 88562-9, 85183-6 #### [facility] ([id number]) [address] [facility], [address] [place] [address] #### THMET #### [facility] ([id number]) [address] [facility], Hemoglobin (Bld) [Mass/Vol] 12.8 g/dL Normal 11.7-15.5 [facility] Comment on above: Performed By: #### C ILEANA CARLOS, 1988-06, LIVR, 2131-10, 46149-9, 21828-7 #### [facility] ([id number]) [address] [place] [address], [address] [place] [address] #### THMET #### [facility] ([id number]) [address] [place] [address], MCH (RBC) [Entitic mass] 32.5 pg Normal 27-34 [facility] Comment on above: Performed By: #### C ILEANA CARLOS, 1988-06, LIVR, 2131-10, 30196-9, 41216-4 #### [facility] ([id number]) [address] [place] [address], [address] [place] [address] #### THMET #### [facility] ([id number]) [address] [place] [address], MCHC (RBC) [Mass/Vol] 33.3 g/dL Normal 32-36 [facility] Comment on above: Performed By: #### ILEANA PITTMAN, 1988-06, LIVR, 2131-10, 71601-0, 56380-6 #### [facility] ([id number]) [address] [place] [address], [address] [place] [address] #### THMET #### [facility] ([id number]) [address] [place] [address], MCV (RBC) [Entitic vol] 98 fL Normal 80-100 [facility] Comment on above: Performed By: #### C ILEANA CARLOS, 1988-06, LIVR, 2131-10, 69326-7, 29341-6 #### [facility] ([id number]) [address] [place] [address], [address] [address] #### THMET #### [facility] ([id number]) [address] [facility], Platelet mean volume (Bld) [Entitic vol] 11.2 fL Normal 7-12 [facility] Comment on above: Performed By: #### C BC, BMP, 1988-06, LIVR, 2131-10, 05355-2, 50731-3 #### [facility] ([id number]) [address] [place] [address] #### THMET #### [facility] ([id number]) [address] [place] [address], Platelets (Bld) [#/Vol] 108 10*3/uL Low 150-450 [facility] Comment on above: Performed By: #### C BC, BMP, 1988-06, LIVR, 2131-10, 07906-4, 11988-9 #### [facility] ([id number]) [address] [place] [address], [place] [address] #### THMET #### [facility] ([id number]) [address] [place] [address], RBC COUNT 3.95 X10E12/L Normal 3.80-5.20 [facility] Comment on above: Performed By: #### C BC, BMP, 1988-06, LIVR, 2131-10, 98913-7, 47644-8 #### [facility] ([id number]) [address] [place], [place] [address] #### THMET #### [facility] ([id number]) [address] [place] [address], WBC (Bld) [#/Vol] 7.2 10*3/uL Normal 4.0-11.0 [facility] Comment on above: Performed By: #### C BC, BMP, 1988-06, LIVR, 2131-10, 28289-4, 57099-5 #### [facility] ([id number]) [address], [address] [place] [address] #### THMET #### [facility] ([id number]) [address] [facility], CRP [Mass/Vol]on 01-26-2024 C REACTIVE PROTEIN 0.7 mg/dL Normal 0.000-0.744 [facility] Comment on above: Performed By: #### C BC, BMP, 1988-06, LIVR, 2131-10, 14286-4, 62717-5 #### [facility] ([id number]) [address], [address] [place] [address] #### THMET #### [facility] ([id number]) [address] [place] [address], ESR Photometric method (Bld) [Velocity]on 01-26-2024 ESR, ERYTHROCYTE SEDIMENTATION RATE 1 mm/h Normal 0-20 [facility] Comment on above: Performed By: #### C BC, BMP, 1988-06, LIVR, 2131-10, 43043-0, 96704-9 #### [facility] ([id number]) [address], [address] [place] [address] #### THMET #### [facility] ([id number]) [address] [facility], LIVER PANELon 01-26-2024 Albumin [Mass/Vol] 3.7 g/dL Normal 3.2-5.3 [facility] Comment on above: Performed By: #### C BC, BMP, 1988-06, LIVR, 2131-10, 80856-3, 27558-3 #### [facility] ([id number]) [address] [place] [address], [address] [place] [address] #### THMET #### [facility] ([id number]) [address] [place] [address], ALP [Catalytic activity/Vol] 29 U/L Low 39-130 [facility] Comment on above: Performed By: #### C BC, BMP, 1988-06, LIVR, 2131-10, 11310-7, 36023-3 #### [facility] ([id number]) [address] [place] [address], [facility] [address] [place] [address] #### THMET #### [facility] ([id number]) [address] [place] [address], ALT [Catalytic activity/Vol] 8 U/L Normal 0-31 [facility] Comment on above: Performed By: #### C BC, BMP, 1988-06, LIVR, 2131-10, 84683-7, 02701-0 #### [facility] ([id number]) [address] [place] [address], [facility] [address] [place] [address] #### THMET #### [facility] ([id number]) [address] [place] [address], AST [Catalytic activity/Vol] 19 U/L Normal 0-41 [facility] Comment on above: Performed By: #### C BC, BMP, 1988-06, LIVR, 2131-10, 25998-9, 54657-8 #### [facility] ([id number]) [address] [place] [address], [facility] [address] [place] [address] #### THMET #### [facility] ([id number]) [address] [place] [address], Bilirubin [Mass/Vol] 0.4 mg/dL Normal 0.3-1.2 [facility] Comment on above: Performed By: #### C BC, BMP, 1988-06, LIVR, 2131-10, 60720-8, 77440-8 #### [facility] ([id number]) [address] [facility], [address] [place] [address] #### THMET #### [facility] ([id number]) [address] [facility], Bilirubin.direct [Mass/Vol] 0.1 mg/dL Normal 0.0-0.4 [facility] Comment on above: Performed By: #### C BC, BMP, 1988-06, LIVR, 2131-10, 57654-3, 39476-3 #### [facility] ([id number]) [address] [facility], [address] [place] [address] #### THMET #### [facility] ([id number]) [address] [facility], Protein [Mass/Vol] 7.0 g/dL Normal 6.0-8.0 [facility] Comment on above: Performed By: #### C BC, BMP, 1988-06, LIVR, 2131-10, 51624-0, 78396-0 #### [facility] ([id number]) [address] [place] [address], [address] [place] [address] #### THMET #### [facility] ([id number]) [address] [place] [address], THIOPURINE METABOLITESon 6 THIOGUANINE Not performed Normal [facility] Comment on above: Result Comment: NOTE Thiopurine Metabolites, B was cancelled on 02/02/2024 at 16:27; Quantity not sufficient to test. Test Performed by: [facility] [address] [place] [address] Insulation Helper: Celi Fernandez Ph.D.; CLIA# [id number] Performed By: #### C BCA, FEPR, 2276-4 #### [facility] ([id number]) [address] [facility], [address] [place] [address] VITAMIN B12on 01-26-2024 Cobalamin (Vitamin B12) [Mass/Vol] 239 pg/mL Normal 180-914 [facility] Comment on above: Performed By: #### C BC, BMP, 1989-5, LIVR, 2132-9, 99232-7, 35702-5 #### [facility] ([id number]) [address] [place] [address], [address] [place] [address] #### THMET #### [facility] ([id number]) [address] [place], [place] [address], Vitamin D+Metabolites [Mass/ Vol]on 01-26-2024 VITAMIN D 25 HYD TOT 10.1 ng/mL Low 30-100 [facility] Comment on above: Result Comment: Vitamin D status 25 [place] Vitamin D Deficiency <20 ng/mL Insufficiency 20-29 ng/mL Sufficiency 30-100 ng/mL Toxicity >100 ng/mL NOTE: A pediatric reference range has not been established by the curator of photography and prints of this kit. The [place] [employer] recommends a Vitamin D level of = or >20ng/mL in infants and children. Performed By: #### C BCA, FEPR, 2276-4 #### [facility] ([id number]) [address] [place] [address], [address] [place] [address] HCG ( test) Ql (U)o n 01-23-2024 Interpretation and review of laboratory results Abnormal [facility] Preg Test, Ur Positive Negative [facility] Urinalysis macro (dipstick) panel (U)on 01-23-2024 Bilirubin, UA Negative Negative - 4(70) +++ mg/dL [facility] Blood, UA Positive Negative - 50 Enrrique/mcL [facility] Clarity, UA Clear [facility] Color, UA Yellow [facility] Glucose, UA Negative Negative - 2000(110) ++++ mg/dL [facility] Interpretation and review of laboratory results Abnormal [facility] Ketones, UA Positive Negative - 160(16) ++++ mg/dL [facility] Leukocytes, UA Negative Negative - 500+++ Cam/mcL [facility] Nitrite, UA Negative Negative - Positive [facility] pH, UA 7 5 - 9 [facility] Protein, UA Trace Negative - 1999(20) ++++ mg/dL [facility] Spec Grav, UA 1.015 1 - 1.03 [facility] Urobilinogen, UA 1.0 0.2 - 12 mg/dL [facility] KAY FECAL OCCULT BLDon 01-02 Hemoglobin.gastroi ntestinal Ql (Stl) Negative Normal NEG [facility] Comment on above: Performed By: #### 2 335-8 #### [facility] ([id number]) [address] [place] [address], [place] [address] CBC AND AUTO DIFFon 12-01-19 ABSOLUTE BASOPHIL 0.0 X10E9/L Normal 0.0-0.2 [facility] Comment on above: Performed By: #### C CRUZ FEPR, 6-4 #### [facility] ([id number]) [address], [address] [place] [address] ABSOLUTE NEUTROPHIL 1.9 X10E9/L Normal 1.5-6.6 [facility] Comment on above: Performed By: #### Elizabeth ARROYO, FEPR, 2275-4 #### [facility] ([id number]) [address], [address] [place] [address] Basophils/100 WBC (Bld) 0.5 % Normal [facility] Comment on above: Performed By: #### Elizabeth ARROYO, FEPR, 6-4 #### [facility] ([id number]) [address], [address] [place] [address] Eosinophils (Bld) [#/Vol] 0.1 10*3/uL Normal 0.0-0.4 [facility] Comment on above: Performed By: #### Elizabeth ARROYO, FEPR, 6-4 #### [facility] ([id number]) [address], [address] [place] [address] Eosinophils/100 WBC (Bld) 2.3 % Normal [facility] Comment on above: Performed By: #### Elizabeth ARROYO FEPR, 2275-4 #### [facility] ([id number]) [address], [address] [place] [address] Erythrocyte distribution width (RBC) [Ratio] 13.3 % Normal 11.5-15.0 [facility] Comment on above: Performed By: #### Elizabeth ARROYO FEPR, 2275-4 #### [facility] ([id number]) [address] [place] [address] Hematocrit (Bld) [Volume fraction] 36.2 % Normal 35-47 [facility] Comment on above: Performed By: #### Elizabeth ARROYO FEPR, 2275-4 #### [facility] ([id number]) [address], [facility] [address] [place] [address] Hemoglobin (Bld) [Mass/Vol] 12.8 g/dL Normal 11.7-15.5 [facility] Comment on above: Performed By: #### Elizabeth ARROYO, FEPR, 4 #### [facility] ([id number]) [address], [facility] [address] [place] [address] Lymphocytes (Bld) [#/Vol] 2.3 10*3/uL Normal 1.0-3.5 [facility] Comment on above: Performed By: #### Elizabeth ARROYO, FEPR, 4 #### [facility] ([id number]) [address] [place] [address] Lymphocytes/100 WBC (Bld) 47.4 % Normal [facility] Comment on above: Performed By: #### Elizabeth ARROYO, FEPR, 4 #### [facility] ([id number]) [address], [address] [place] [address] MCH (RBC) [Entitic mass] 33.2 pg Normal 27-34 [facility] Comment on above: Performed By: #### Elizabeth ARROYO FEPR, 6-4 #### [facility] ([id number]) [address], [address] [place] [address] MCHC (RBC) [Mass/Vol] 35.5 g/dL Normal 32-36 [facility] Comment on above: Performed By: #### Elizabeth ARROYO, FEPR, 2275-4 #### [facility] ([id number]) [address], [address] [place] [address] MCV (RBC) [Entitic vol] 94 fL Normal 80-100 [facility] Comment on above: Performed By: #### Elizabeth ARROYO, FEPR, 2275-05 #### [facility] ([id number]) [address], [address] [place] [address] Monocytes (Bld) [#/Vol] 0.4 10*3/uL Normal 0-0.9 [facility] Comment on above: Performed By: #### Elizabeth ARROYO, FEPR, 2275-4 #### [facility] ([id number]) [address], [address] [place] [address] Monocytes/100 WBC (Bld) 9.1 % Normal [facility] Comment on above: Performed By: #### Elizabeth ARROYO FEPR, 2275- #### [facility] ([id number]) [address], [address] [place] [address] Neutrophils/100 WBC (Bld) 40.7 % Normal [facility] Comment on above: Performed By: #### Elizabeth ARROYO, FEPR, 2275-05 #### [facility] ([id number]) [address], [address] [place] [address] Platelet mean volume (Bld) [Entitic vol] 11.1 fL Normal 7-12 [facility] Comment on above: Performed By: #### Elizabeth ARROYO, FEPR, 6-4 #### [facility] ([id number]) [address], [address] [place] [address] Platelets (Bld) [#/Vol] 187 10*3/uL Normal 150-450 [facility] Comment on above: Performed By: #### C BCA, FEPR, 2275-4 #### [facility] ([id number]) [address], [address] [place] [address] RBC COUNT 3.87 X10E12/L Normal 3.80-5.20 [facility] Comment on above: Performed By: #### C BCA, FEPR, 2275-4 #### [facility] ([id number]) [address], [facility] [address] [place] [address] WBC (Bld) [#/Vol] 4.8 10*3/uL Normal 4.0-11.0 [facility] Comment on above: Performed By: #### C BCA, FEPR, 2275-4 #### [facility] ([id number]) [address], [address] [place] [address] FERRITINon 12-01-2023 Ferritin [Mass/Vol] 12 ng/mL Normal 11-307 [facility] Comment on above: Performed By: #### C BCA, FEPR, 2275-4 #### [facility] ([id number]) [address], [address] [place] [address] IRON PROFILEon 12-01-2023 Iron [Mass/Vol] 74 ug/dL Normal 50-170 [facility] Comment on above: Performed By: #### C BCA, FEPR, 2275-4 #### [facility] ([id number]) [address], [address] [place] [address] IRON BINDING 344 ug/dL Normal 250-425 [facility] Comment on above: Performed By: #### C BCA, FEPR, 2275-4 #### [facility] ([id number]) [address], [address] [place] [address] IRON SATURATION 21 % SATURATION Normal 15-50 [facility] Comment on above: Performed By: #### C BCA, FEPR, 2275-4 #### [facility] ([id number]) [address], [address] [place] [address] CBC AND AUTO DIFFon 08-04-19 24 ABSOLUTE BASOPHIL 0.0 X10E9/L Normal 0.0-0.2 [facility] Comment on above: Performed By: #### C CRUZ, FEPR, 2275-4 #### [facility] ([id number]) [address], [address] [place] [address] ABSOLUTE NEUTROPHIL 2.7 X10E9/L Normal 1.5-6.6 [facility] Comment on above: Performed By: #### Elizabeth BCA, FEPR, 2275-05 #### [facility] ([id number]) [address], [address] [place] [address] Basophils/100 WBC (Bld) 0.4 % Normal [facility] Comment on above: Performed By: #### Elizabeth BCA, FEPR, 2275-05 #### [facility] ([id number]) [address], [address] [place] [address] Eosinophils (Bld) [#/Vol] 0.1 10*3/uL Normal 0.0-0.4 [facility] Comment on above: Performed By: #### C BCA, FEPR, 2275-4 #### [facility] ([id number]) [address], [address] [place] [address] Eosinophils/100 WBC (Bld) 2.0 % Normal [facility] Comment on above: Performed By: #### C BCA, FEPR, 2275-4 #### [facility] ([id number]) [address] [place] [address] Erythrocyte distribution width (RBC) [Ratio] 13.5 % Normal 11.5-15.0 [facility] Comment on above: Performed By: #### C BCA, FEPR, 2275-4 #### [facility] ([id number]) [address] [place] [address] Hematocrit (Bld) [Volume fraction] 35.2 % Normal 35-47 [facility] Comment on above: Performed By: #### C CRUZ, FEPR, 2275-4 #### [facility] ([id number]) [address] [place] [address] Hemoglobin (Bld) [Mass/Vol] 12.2 g/dL Normal 11.7-15.5 [facility] Comment on above: Performed By: #### Elizabeth BCA, FEPR, 2275-4 #### [facility] ([id number]) [address] [place] [address] Lymphocytes (Bld) [#/Vol] 1.9 10*3/uL Normal 1.0-3.5 [facility] Comment on above: Performed By: #### Elizabeth BCA, FEPR, 2275-4 #### [facility] ([id number]) [address] [place] [address] Lymphocytes/100 WBC (Bld) 36.8 % Normal [facility] Comment on above: Performed By: #### C BCA, FEPR, 2275-4 #### [facility] ([id number]) [address], [facility] [address] [place] [address] MCH (RBC) [Entitic mass] 31.9 pg Normal 27-34 [facility] Comment on above: Performed By: #### Elizabeth BCA, FEPR, 2275-4 #### [facility] ([id number]) [address] [place] [address] MCHC (RBC) [Mass/Vol] 34.5 g/dL Normal 32-36 [facility] Comment on above: Performed By: #### SELIN Johnson BCAR, 2275-05 #### [facility] ([id number]) [address], [facility] [address] [place] [address] MCV (RBC) [Entitic vol] 93 fL Normal 80-100 [facility] Comment on above: Performed By: #### Elizabeth ARROYO FEPR, 2275-05 #### [facility] ([id number]) [address], [facility] [address] [place] [address] Monocytes (Bld) [#/Vol] 0.4 10*3/uL Normal 0-0.9 [facility] Comment on above: Performed By: #### Elizabeth ARROYO FEPR, 2275-05 #### [facility] ([id number]) [address], [facility] [address] [place] [address] Monocytes/100 WBC (Bld) 8.3 % Normal [facility] Comment on above: Performed By: #### Elizabeth ARROYO FEPR, 2275-05 #### [facility] ([id number]) [address], [facility] [address] [place] [address] Neutrophils/100 WBC (Bld) 52.5 % Normal [facility] Comment on above: Performed By: #### Elizabeth ARROYO FEPR, 2275-05 #### [facility] ([id number]) [address], [facility] [address] [place] [address] Platelet mean volume (Bld) [Entitic vol] 10.7 fL Normal 7-12 [facility] Comment on above: Performed By: #### Elizabeth ARROYO, FEPR, 2275-05 #### [facility] ([id number]) [address] [place] [address] Platelets (Bld) [#/Vol] 198 10*3/uL Normal 150-450 [facility] Comment on above: Performed By: #### C BCA, FEPR, 6-4 #### [facility] ([id number]) [address] [place] [address] RBC COUNT 3.81 X10E12/L Normal 3.80-5.20 [facility] Comment on above: Performed By: #### C BCA, FEPR, 2275-4 #### [facility] ([id number]) [address] [place] [address] WBC (Bld) [#/Vol] 5.2 10*3/uL Normal 4.0-11.0 [facility] Comment on above: Performed By: #### C BCA, FEPR, 4 #### [facility] ([id number]) [address], [address] [place] [address] FERRITINon 08-04-2023 Ferritin [Mass/Vol] 27 ng/mL Normal 11-307 [facility] Comment on above: Performed By: #### C BCA, FEPR, 4 #### [facility] ([id number]) [address] [place] [address] IRON PROFILEon 08-04-2023 Iron [Mass/Vol] 46 ug/dL Low 50-170 [facility] Comment on above: Performed By: #### C BCA, FEPR, 4 #### [facility] ([id number]) [address] [place] [address] IRON BINDING 273 ug/dL Normal 250-425 [facility] Comment on above: Performed By: #### C BCA, FEPR, 4 #### [facility] ([id number]) [address] [place] [address] IRON SATURATION 17 % SATURATION Normal 15-50 [facility] Comment on above: Performed By: #### C BCA, FEPR, 2276-4 #### [facility] ([id number]) [address] [place] [address], [address] [place] [address] M. tuberculosis stim IFN-g p carrillo (Bld)on 08-04-2023 Mitogen minus Nil Result 9.92 IU/mL Normal [facility] Comment on above: Performed By: #### 7 1775-1 #### [facility] [employer] ([id number]) [address] [facility], Nil Result 0.08 IU/mL Normal [facility] Comment on above: Result Comment: NOTE Test Performed by: [facility] [address] [place] [address] Insulation Helper: Celi Fernandez Ph.D.; CLIA# [id number] Performed By: #### 7 1775-1 #### [employer] ([id number]) [address] [place] [address], QuantiFERON-Tb Gold Plus Result Negative Normal Negative [facility] Comment on above: Result Comment: NOTE [...] Diagnosis of Tuberculosis in Adults and Children [José Miguelinschrisn DM et. al. Clin. Infect. Dis. 2017;64(2):111-115]. The reference range for the 'TB1 Ag minus Nil Result' and 'TB2 Ag minus Nil Result' is an Interferon-gamma level <0.35 IU/mL. Performed By: #### 7 1775-1 #### [employer] ([id number]) [address] [facility], TB1 Ag minus Nil Result 0.09 IU/mL Normal [facility] Comment on above: Performed By: #### 7 1775-1 #### [employer] ([id number]) [facility], TB2 Ag minus Nil Result 0.01 IU/mL Normal [facility] Comment on above: Performed By: #### 7 1775-1 #### [facility] ([id number]) [address] [facility] Elizabeth, PAP ACOG PANEL 2: 30 to 65on 05-07-2022 . . Normal [facility] Comment on above: Result Comment: Perf ormed at: WB Performed By: #### 4 623067 #### [facility] [address] [place] [address] Dr. Bisi Glass Age Gdln ACOG Testing 30-65 Normal [facility] Comment on above: Performed By: #### 4 476630 #### [facility] [address] [place] [address] Dr. Bisi Glass DIAGNOSIS: Comment Normal [facility] Comment on above: Result Comment: NEGA TIVE FOR INTRAEPITHELIAL LESION OR MALIGNANCY. Performed at: WB Performed By: #### 4 637875 #### [facility] [address] [place] [address] Dr. Bisi Glass HPV Aptima Negative Normal Negative [facility] Comment on above: Result Comment: This nucleic acid amplification test detects fourteen high-risk HPV types (16,18,31,33,35,39,45,51,52,56,58,59,66,68) without differentiation. Performed at: =G Performed By: #### 4 633593 #### [facility] [address] [address] [address] Bisi Glass HPV Genotype Reflex Comment Normal [facility] Comment on above: Result Comment: Crit eria not met, HPV Genotype not performed. Performed at: WB Performed By: #### 4 727724 #### [facility] [address] [place] [address] Dr. Bisi Glass Methodology: Comment Normal [facility] Comment on above: Result Comment: This liquid based ThinPrep(R) pap test was screened with the use of an image guided system. Performed at: WB Performed By: #### 4 992326 #### [facility] [address] [place] [address] Dr. Bisi Glass Note: Comment [facility] Comment on above: Result Comment: The Pap smear is a screening test designed to aid in the detection of premalignant and malignant conditions of the uterine cervix. It is not a diagnostic procedure and should not be used as the sole means of detecting cervical cancer. Both false-positive and false-negative reports do occur. . Performed at: WB Performed By: #### 4 442094 #### [facility] [address] [address] [address] Bisi Glass Performed by: Comment Normal [facility] Comment on above: Result Comment: Ngozi Hamlin, Fire Support Specialist (ASCP) Performed at: WB Performed By: #### 4 600056 #### [facility] [address] [place] [address] Dr. Bisi Glass Specimen adequacy: Comment Normal [facility] Comment on above: Result Comment: Sati sfactory for evaluation. Endocervical and/or squamous metaplastic cells (endocervical component) are present. Performed at: WB Performed By: #### 4 044294 #### [facility] [address] [place] [address] Dr. Bisi Glass [facility] 02-11-2017 [facility] Letter [employer] [address] [address]Zqtof: [phone]: [address] [place], [place] [address]Lghny: [phone]: [address] [address]Zpsqv: [phone]: Toll Free: [phone] [email or web address] Roldan M.D., Maxwell Monteiro M.D.Timothy J Adamowicz, D.O..Bettie Henry M.D. FACROSaju A. Kanu, M.D.February 11, 2017[facility] Rhhvuuvm141 [facility] [address]Kwxw Ms. Storey,You missed your scheduled appointment on Saturday February 11, 2017. Pleasecall our office to reschedule. If you need to cancel any futureappointments, please call to give us 24 hour notice so that we can offer yourappointment to another patient.Sincerely,Samara Canales M.D. [facility] 12-03-2016 HOSP Infusion Center (HEMTCL) PHILLIP STOREY ([id number]) 1990 [address] Time Provider Dojpgpcvfb22/24/17 1:00 PM CHAIR 1 JOSE HEMTCL During your visit today, we recorded the following information about you: Temperature Pulse Respiration Blood pressure 98.9 degrees 76/minute 18/minute 97/64Referring Provider: SAMARA HERNANDEZ [[id number]]Allergies As of Date: 12/03/2016(No Known Allergies)Date Reviewed: 12/03/2016Reviewed by: Kristi (Rn) JAD Partida - Fully AssessedPrimary Visit Diagnosis:Anemia, unspecified type [D64.9]Order(s):TREATMENT PARAMETER-NOT NEEDED [9990217] Order #: [id number]: 1 HEMONC NURSING COMMUNICATION [9990214] Order #: [id number]: 1 STANDING HEMONC NURSING COMMUNICATION [9990214] Order #: [id number]: 1 STANDING HEMONC NURSING COMMUNICATION [9990214] Order #: [id number]: 1 STANDING HEMONC NURSING COMMUNICATION [9990214] Order #: [id number]: 1 STANDING HEMONC NURSING COMMUNICATION [9990214] Order #: [id number]: 1 STANDING HEMONC NURSING COMMUNICATION [9990214] Order #: [id number]: 1 STANDING [] iron sucrose 200 mg [...] (1 ML) INJECTION* 12/03/2016 Route: INTRAMUSCULAEncounter Number: [id number] Status:Closed by KRISTI PARTIDA on 12/03/16 [facility] CNOVSPon 11-19-2016 CNOVS Visit (SP) Office (HEMACL) PHILLIP STOREY ([id number]) 1990 [facility] Time Provider Zdzftcezoc07/10/17 11:00 AM SAMARA HERNANDEZ During your visit today, we recorded the following information about you: Temperature Pulse Respiration Blood pressure 97.8 degrees 78/minute 18/minute 96/61 Weight Height 59.6 kg 1.632 Clara Berger 11/19/2016 11:15 AM SignedPatient states feeling more fatigue.Samara Hernandez DO 11/23/2016 9:43 AM SignedPATIENT NAME: Juan Luis StoreyMRN: [id number] PHYSICIAN: IFTIKHAR RAZO410 [facility] [address]BPGEBMN CARE PHYSICIAN: Iftikhar RazoOTHER PHYSICIANS:CHIEF COMPLAINT: Anemia, [...] PRESENT ILLNESS: This is a 26year old -Pakistani femaleCBC from 05/22/16 reveals white blood cell [...] her second kid in dec 2014.Works a [employer] service.June 04, 2016Eats a bag of ice [...] I answered all questions satisfactorily..Mariano Hernandez D.O.Medical OncologistLehigh, [place]Referring Provider: SAMARA HERNANDEZ [[id number]]Allergies As of Date: 11/19/2016(No Known Allergies)Date Reviewed: [...] Status:Closed by SAMARA HERNANDEZ DO on 11/23/16 [facility] PROGRESSon 11-19-2016 PROGRESS HNO ID: [id number] thor: Samara HernandezService: (none)Author Type: PhysicianType: Progress NotesFiled: 11/23/2016 9:43 AMNote Text:PATIENT NAME: Juan Luis StoreyMRN: [id number] PHYSICIAN: IFTIKHAR RAZO410 [facility] [address]URUFDZW CARE PHYSICIAN: Iftikhar RazoOTHER PHYSICIANS:CHIEF COMPLAINT: Anemia, [...] PRESENT ILLNESS: This is a 26year old -Pakistani femaleCBC from 05/22/16 reveals white blood cell [...] her second kid in dec 2014.Works a [employer] service.June 04, 2016Eats a bag of ice [...] I answered all questions satisfactorily..Mariano Hernandez D.O.Medical OncologistCor[facility] Special[facility] CBCDIF (for [facility] use o nly)on 11-19-2016 Abs Baso 0.02 k/uL Normal <0.11 [facility] Abs Cass 0.40 k/uL Normal 0.00-0.86 [facility] Abs Neut 3.13 k/uL Normal 1.45-7.50 [facility] Basophils/100 WBC Auto (Bld) 0.4 % Normal [facility] Eosinophils 0.05 10*3/uL Normal <0.46 [facility] Eosinophils/100 leukocytes 0.9 % Normal [facility] Erythrocyte distribution width Auto Ratio (RBC) 13.5 % Normal 11.5-15.0 [facility] Erythrocytes (RBC) 3.87 10*6/uL Low 3.90-5.20 [facility] Hematocrit (HCT) 33.0 % Low 36.0-46.0 [facility] Hemoglobin mass conc (Bld) 10.5 g/dL Low 11.5-15.5 [facility] Lymphocytes 1.70 10*3/uL Normal 1.00-4.00 [facility] Lymphocytes/100 leukocytes 32.1 % Normal [facility] MCH 27.1 pG Normal 26.0-34.0 [facility] MCHC mass conc (RBC) 31.8 g/dL Normal 30.5-36.0 [facility] MCV 85.3 fL Normal 80.0-100.0 [facility] Monocytes/100 leukocytes 7.5 % Normal [facility] Neutrophils/100 WBC Auto (Bld) 59.1 % Normal [facility] Platelet mean volume (PMV) 11.0 fL Normal 9.0-12.7 [facility] Platelets 288 10*3/uL Normal 150-400 [facility] WBC (Leukocytes) 5.30 10*3/uL Normal 3.70-11.00 [facility] Remote iSTAT BMP (for [facility] us e only)on 11-19-2016 Anion gap 11 mmol/L Normal 0-15 [facility] BUN (urea nitrogen) 12 mg/dL Normal 8-25 [facility] Chloride 105 mmol/L Normal 98-110 [facility] CO2 24 mmol/L Normal 23-32 [facility] Creatinine 0.70 mg/dL Normal 0.70-1.40 [facility] eGFR (non-black) mL/min/{1.73_m2} Normal Cl [facility] Comment on above: Result Comment: eGFR (Estimated [...] Glucose mass conc 79 mg/dL Normal 65-100 [facility] Ionized Calcium, WB 1.14 mmol/L Normal 1.08-1.30 [facility] Comment on above: Result Comment: Plea se note: This value represents ionized calcium not total calcium. Potassium molar conc 4.0 mmol/L Normal 3.5-5.0 [facility] Sodium 140 mmol/L Normal 132-148 [facility] Ferritinon 10-29-2016 Ferritin 19.8 ng/mL Normal 14.7-205.1 [facility] Comment on above: Performed By: #### I CHERYL FERR ####[facility] [place], [place] [phone] Iron and TIBCon 10-29-2016 Iron 21 ug/dL Low 41-186 [facility] Comment on above: Performed By: #### I CHERYL FERR ####[facility] [address] Ave[address]ix[address], [place] [phone] TIBC 331 ug/dL Normal 232-386 [facility] Comment on above: Performed By: #### I CHERYL FERR ####[facility] [address], [place] [phone] Transferrin Saturatn 6 % Low 15-57 [facility] Comment on above: Performed By: #### I CHERYL FERR ####[facility] [address] [place], [place] [phone] Remote CBCDIF (for [facility] use o nly)on 10-29-2016 Abs Baso 0.02 k/uL Normal 0.00-0.10 [facility] Abs Cass 0.42 k/uL Normal 0.00-0.86 [facility] Abs Neut 3.06 k/uL Normal 1.45-7.50 [facility] Basophils/100 WBC Auto (Bld) 0.3 % Normal [facility] Eosinophils 0.11 10*3/uL Normal 0.00-0.45 [facility] Eosinophils/100 leukocytes 1.8 % Normal [facility] Erythrocyte distribution width Auto Ratio (RBC) 12.9 % Normal 11.5-15.0 [facility] Erythrocytes (RBC) 3.90 10*6/uL Normal 3.90-5.20 [facility] Hematocrit (HCT) 34.0 % Low 36.0-46.0 [facility] Hemoglobin mass conc (Bld) 10.8 g/dL Low 11.5-15.5 [facility] Lymphocytes 2.37 10*3/uL Normal 1.00-4.00 [facility] Lymphocytes/100 leukocytes 39.6 % Normal [facility] MCH 27.7 pG Normal 26.0-34.0 [facility] MCHC mass conc (RBC) 31.8 g/dL Normal 30.5-36.0 [facility] MCV 87.2 fL Normal 80.0-100.0 [facility] Monocytes/100 leukocytes 7.0 % Normal [facility] Neutrophils/100 WBC Auto (Bld) 51.3 % Normal [facility] Platelet mean volume (PMV) 10.8 fL Normal 9.0-12.7 [facility] Platelets 268 10*3/uL Normal 150-400 [facility] WBC (Leukocytes) 5.98 10*3/uL Normal 3.70-11.00 [facility] Remote iSTAT BMP (for [facility] us e only)on 10-29-2016 Anion gap 11 mmol/L Normal 0-15 [facility] BUN (urea nitrogen) 9 mg/dL Normal 8-25 [facility] Chloride 104 mmol/L Normal 98-110 [facility] CO2 26 mmol/L Normal 23-32 [facility] Creatinine 0.70 mg/dL Normal 0.70-1.40 [facility] eGFR (non-black) mL/min/{1.73_m2} Normal Cl [facility] Comment on above: Result Comment: eGFR (Estimated [...] Glucose mass conc 83 mg/dL Normal 65-100 [facility] Ionized Calcium, WB 1.16 mmol/L Normal 1.08-1.30 [facility] Comment on above: Result Comment: Plea se note: This value represents ionized calcium not total calcium. Potassium molar conc 3.8 mmol/L Normal 3.5-5.0 [facility] Sodium 141 mmol/L Normal 132-148 [facility] Ferritinon 10-01-2016 Ferritin 9.1 ng/mL Low 14.7-205.1 [facility] Comment on above: Performed By: #### I LUZ LUNA ####[facility] [address], [place] [phone] Iron and TIBCon 10-01-2016 Iron 34 ug/dL Low 41-186 [facility] Comment on above: Performed By: #### I LUZ LUNA ####[facility] [address], [place] [phone] TIBC 316 ug/dL Normal 232-386 [facility] Comment on above: Performed By: #### I LUZ LUNA ####[facility] [address], [place] [phone] Transferrin Saturatn 11 % Low 15-57 [facility] Comment on above: Performed By: #### I LUZ ULNA ####[facility] [address] [place], [place] [phone] Remote CBCDIF (for [facility] use o nly)on 10-01-2016 Abs Baso 0.02 k/uL Normal 0.00-0.10 [facility] Abs Cass 0.53 k/uL Normal 0.00-0.86 [facility] Abs Neut 2.48 k/uL Normal 1.45-7.50 [facility] Basophils/100 WBC Auto (Bld) 0.4 % Normal [facility] Eosinophils 0.09 10*3/uL Normal 0.00-0.45 [facility] Eosinophils/100 leukocytes 1.6 % Normal [facility] Erythrocyte distribution width Auto Ratio (RBC) 13.7 % Normal 11.5-15.0 [facility] Erythrocytes (RBC) 3.85 10*6/uL Low 3.90-5.20 [facility] Hematocrit (HCT) 33.5 % Low 36.0-46.0 [facility] Hemoglobin mass conc (Bld) 10.7 g/dL Low 11.5-15.5 [facility] Lymphocytes 2.36 10*3/uL Normal 1.00-4.00 [facility] Lymphocytes/100 leukocytes 43.1 % Normal [facility] MCH 27.8 pG Normal 26.0-34.0 [facility] MCHC mass conc (RBC) 31.9 g/dL Normal 30.5-36.0 [facility] MCV 87.0 fL Normal 80.0-100.0 [facility] Monocytes/100 leukocytes 9.7 % Normal [facility] Neutrophils/100 WBC Auto (Bld) 45.2 % Normal [facility] Platelet mean volume (PMV) 10.8 fL Normal 9.0-12.7 [facility] Platelets 282 10*3/uL Normal 150-400 [facility] WBC (Leukocytes) 5.48 10*3/uL Normal 3.70-11.00 [facility] Remote iSTAT BMP (for [facility] us e only)on 10-01-2016 Anion gap 13 mmol/L Normal 0-15 [facility] BUN (urea nitrogen) 14 mg/dL Normal 8-25 [facility] Chloride 102 mmol/L Normal 98-110 [facility] CO2 24 mmol/L Normal 23-32 [facility] Creatinine 0.70 mg/dL Normal 0.70-1.40 [facility] eGFR (non-black) mL/min/{1.73_m2} Normal Cl [facility] Comment on above: Result Comment: eGFR (Estimated [...] Glucose mass conc 93 mg/dL Normal 65-100 [facility] Ionized Calcium, WB 1.14 mmol/L Normal 1.08-1.30 [facility] Comment on above: Result Comment: Plea se note: This value represents ionized calcium not total calcium. Potassium molar conc 3.7 mmol/L Normal 3.5-5.0 [facility] Sodium 139 mmol/L Normal 132-148 [facility] Remote CBCDIF (for [facility] use o nly)on 08-29-2016 Abs Baso 0.02 k/uL Normal 0.00-0.10 [facility] Abs Cass 0.52 k/uL Normal 0.00-0.86 [facility] Abs Neut 3.37 k/uL Normal 1.45-7.50 [facility] Basophils/100 WBC Auto (Bld) 0.3 % Normal [facility] Eosinophils 0.10 10*3/uL Normal 0.00-0.45 [facility] Eosinophils/100 leukocytes 1.7 % Normal [facility] Erythrocyte distribution width Auto Ratio (RBC) 18.7 % High 11.5-15.0 [facility] Erythrocytes (RBC) 3.97 10*6/uL Normal 3.90-5.20 [facility] Hematocrit (HCT) 33.0 % Low 36.0-46.0 [facility] Hemoglobin mass conc (Bld) 10.5 g/dL Low 11.5-15.5 [facility] Lymphocytes 1.92 10*3/uL Normal 1.00-4.00 [facility] Lymphocytes/100 leukocytes 32.4 % Normal [facility] MCH 26.4 pG Normal 26.0-34.0 [facility] MCHC mass conc (RBC) 31.8 g/dL Normal 30.5-36.0 [facility] MCV 83.1 fL Normal 80.0-100.0 [facility] Monocytes/100 leukocytes 8.8 % Normal [facility] Neutrophils/100 WBC Auto (Bld) 56.8 % Normal [facility] Platelet mean volume (PMV) 10.0 fL Normal 9.0-12.7 [facility] Platelets 263 10*3/uL Normal 150-400 [facility] WBC (Leukocytes) 5.93 10*3/uL Normal 3.70-11.00 [facility] Remote iSTAT BMP (for [facility] us e only)on 08-29-2016 Anion gap 12 mmol/L Normal 0-15 [facility] BUN (urea nitrogen) 12 mg/dL Normal 8-25 [facility] Chloride 104 mmol/L Normal 98-110 [facility] CO2 24 mmol/L Normal 23-32 [facility] Creatinine 0.80 mg/dL Normal 0.70-1.40 [facility] eGFR (non-black) mL/min/{1.73_m2} Normal Cl [facility] Comment on above: Result Comment: eGFR (Estimated [...] Glucose mass conc 91 mg/dL Normal 65-100 [facility] Ionized Calcium, WB 1.14 mmol/L Normal 1.08-1.30 [facility] Comment on above: Result Comment: Lore reyes note: This value represents ionized calcium not total calcium. Potassium molar conc 3.7 mmol/L Normal 3.5-5.0 [facility] Sodium 140 mmol/L Normal 132-148 [facility] Vital Signs Date Time Vital Sign Value Performing Clinician Facility 04-14-2024 14:33-0500 Body mass index (BMI) [Ratio] 30.42 kg/m2 [employer] Work Phone: [facility] 04-14-2024 14:33-0500 Body weight 82.92 kg [employer] Work Phone: [facility] 04-14-2024 14:33-0500 Diastolic blood pressure 72 mm[Hg] [employer] Work Phone: [facility] 04-14-2024 14:33-0500 Systolic blood pressure 122 mm[Hg] Parish Courtney [employer] Work Phone: [facility] 03-17-2024 10:51-0500 Body mass index (BMI) [Ratio] 29.31 kg/m2 Yaquelin BELCHER Work Phone: [facility] 03-17-2024 10:51-0500 Body weight 79.89 kg Yaquelin BELCHER Work Phone: [facility] 03-17-2024 10:51-0500 Diastolic blood pressure 70 mm[Hg] Yaquelin BELCHER Work Phone: [facility] 03-17-2024 10:51-0500 Systolic blood pressure 116 mm[Hg] Yaquelin BELCHER Work Phone: [facility] 03-08-2024 12:30-0500 Body temperature 99.81 [degF] [facility] 1 [facility] [employer] [facility] 03-08-2024 12:30-0500 Diastolic blood pressure 69 mm[Hg] Wlc 1 [facility] 03-08-2024 12:30-0500 Heart rate 103 /min [facility] 1 [facility] 03-08-2024 12:30-0500 Respiratory rate 18 /min Wl 1 [facility] 03-08-2024 12:30-0500 Systolic blood pressure 109 mm[Hg] Wl 1 [facility] 03-08-2024 10:10-0500 Body mass index (BMI) [Ratio] 29.62 kg/m2 Wl 1 [facility] 03-08-2024 10:10-0500 Body weight 80.74 kg [facility] 1 [facility] 02-18-2024 11:43-0500 Body mass index (BMI) [Ratio] 29.29 kg/m2 Parish Courtney DO Work Phone: [facility] 02-18-2024 11:43-0500 Body weight 79.83 kg Parish Courtney DO Work Phone: [facility] 02-18-2024 11:43-0500 Diastolic blood pressure 72 mm[Hg] Parish Courtney DO Work Phone: [facility] 02-18-2024 11:43-0500 Systolic blood pressure 122 mm[Hg] Parish Courtney DO Work Phone: [facility] 12-12-2023 11:50-0400 Body temperature 98.91 [degF] [facility] 2 [facility] 12-12-2023 11:50-0400 Diastolic blood pressure 66 mm[Hg] [facility] 2 [facility] 12-12-2023 11:50-0400 Heart rate 92 /min [facility] 2 [facility] 12-12-2023 11:50-0400 Respiratory rate 18 /min [facility] 2 [facility] 12-12-2023 11:50-0400 Systolic blood pressure 100 mm[Hg] [facility] 2 [facility] 12-12-2023 10:31-0400 Body mass index (BMI) [Ratio] 27.96 kg/m2 [facility] 2 [facility] 12-12-2023 10:31-0400 Body weight 76.2 kg Wlc 2 [facility] 12-01-2023 14:25-0400 Body height 165.1 cm Dominique Josh [employer] Work Phone: [facility] 12-01-2023 14:25-0400 Body mass index (BMI) [Ratio] 27.89 kg/m2 Dominique Josh [employer] Work Phone: [facility] 12-01-2023 14:25-0400 Body temperature 98.8 [degF] Dominique Josh [employer] Work Phone: [facility] 12-01-2023 14:25-0400 Body weight 76.02 kg Dominique Josh [employer] Work Phone: [facility] 12-01-2023 14:25-0400 Diastolic blood pressure 76 mm[Hg] Dominique Josh [employer] Work Phone: [facility] 12-01-2023 14:25-0400 Heart rate 71 /min Dominique Josh [employer] Work Phone: [facility] 12-01-2023 14:25-0400 Respiratory rate 16 /min Dominique Josh [employer] Work Phone: [facility] 12-01-2023 14:25-0400 SaO2% (BldA) [Mass fraction] 99 % Dominique Josh [employer] Work Phone: [facility] 12-01-2023 14:25-0400 Systolic blood pressure 111 mm[Hg] Dominique Josh [employer] Work Phone: [facility] 10-31-2023 11:13-0400 Body temperature 98.6 [degF] [facility] 2 [facility] 10-31-2023 11:13-0400 Diastolic blood pressure 72 mm[Hg] Wlc 2 [facility] 10-31-2023 11:13-0400 Heart rate 85 /min [facility] 2 [facility] 10-31-2023 11:13-0400 Respiratory rate 18 /min [facility] 2 [facility] 10-31-2023 11:13-0400 Systolic blood pressure 112 mm[Hg] [facility] 2 [facility] 10-31-2023 09:51-0400 Body mass index (BMI) [Ratio] 27.81 kg/m2 [facility] 2 [facility] 10-31-2023 09:51-0400 Body weight 75.8 kg [facility] 2 [facility] 10-31-2023 08:50-0400 Body height 165.1 cm Sharda Montiel MD Work Phone: [facility] 10-31-2023 08:50-0400 Body mass index (BMI) [Ratio] 27.79 kg/m2 Sharda Montiel MD Work Phone: [facility] 10-31-2023 08:50-0400 Body weight 75.75 kg Sharda Montiel MD Work Phone: [facility] 10-31-2023 08:50-0400 Diastolic blood pressure 60 mm[Hg] Sharda Montiel MD Work Phone: [facility] 10-31-2023 08:50-0400 Systolic blood pressure 100 mm[Hg] Sharda Montiel MD Work Phone: [facility] 09-17-2023 09:46-0400 Body mass index (BMI) [Ratio] 27.06 kg/m2 Hilary Aviles [employer] Work Phone: [facility] 09-17-2023 09:46-0400 Body temperature 98.2 [degF] Hilary Aviles [employer] Work Phone: [facility] 09-17-2023 09:46-0400 Body weight 73.75 kg Hilary Aviles [employer] Work Phone: [facility] 09-17-2023 09:46-0400 Diastolic blood pressure 60 mm[Hg] Hilary Aviles [employer] Work Phone: [facility] 09-17-2023 09:46-0400 Heart rate 75 /min Hilary Aviles [employer] Work Phone: [facility] 09-17-2023 09:46-0400 SaO2% (BldA) [Mass fraction] 97 % Hilary Aviles [employer] Work Phone: [facility] 09-17-2023 09:46-0400 Systolic blood pressure 98 mm[Hg] Hilary Aviles [employer] Work Phone: [facility] 09-15-2023 12:10-0400 Body temperature 98.71 [degF] [address] 09-15-2023 12:10-0400 Diastolic blood pressure 70 mm[Hg] [address] 09-15-2023 12:10-0400 Heart rate 75 /min [address] 09-15-2023 12:10-0400 Respiratory rate 20 /min [address] 09-15-2023 12:10-0400 Systolic blood pressure 117 mm[Hg] [address] 09-15-2023 10:43-0400 Body mass index (BMI) [Ratio] 26.89 kg/m2 [address] 09-15-2023 10:43-0400 Body weight 73.[address] 08-20-2023 14:15-0400 Body height 165.1 cm Hilary Aviles APRN[employer] Work Phone: [facility] 08-20-2023 14:15-0400 Body mass index (BMI) [Ratio] 26.36 kg/m2 Hilary Aviles [employer] Work Phone: [facility] 08-20-2023 14:15-0400 Body temperature 98.6 [degF] Hilary Aviles APRN[employer] Work Phone: [facility] 08-20-2023 14:15-0400 Body weight 71.85 kg Hilary Aviles [employer] Work Phone: [facility] 08-20-2023 14:15-0400 Diastolic blood pressure 72 mm[Hg] Hilary Aviles [employer] Work Phone: [facility] 08-20-2023 14:15-0400 Heart rate 87 /min Hilary Aviles [employer] Work Phone: [facility] 08-20-2023 14:15-0400 SaO2% (BldA) [Mass fraction] 97 % Hilary Aviles [employer] Work Phone: [facility] 08-20-2023 14:15-0400 Systolic blood pressure 116 mm[Hg] Hilary Aviles [employer] Work Phone: [facility] 08-04-2023 14:48-0400 Body temperature 98.2 [degF] [facility] 2 [facility] 08-04-2023 14:48-0400 Diastolic blood pressure 77 mm[Hg] [facility] 2 [facility] 08-04-2023 14:48-0400 Heart rate 76 /min [facility] 2 [facility] 08-04-2023 14:48-0400 Respiratory rate 20 /min [facility] 2 [facility] 08-04-2023 14:48-0400 Systolic blood pressure 118 mm[Hg] [facility] 2 [facility] 08-04-2023 13:22-0400 Body mass index (BMI) [Ratio] 27.19 kg/m2 [facility] 2 [facility] 08-04-2023 13:22-0400 Body weight 74.12 kg [facility] 2 [facility] 04-21-2023 13:05-0400 Body temperature 97.81 [degF] [facility] 4 [facility] 04-21-2023 13:05-0400 Diastolic blood pressure 75 mm[Hg] [facility] 4 [facility] 04-21-2023 13:05-0400 Heart rate 78 /min [facility] 4 [facility] 04-21-2023 13:05-0400 Respiratory rate 20 /min [facility] 4 [facility] 04-21-2023 13:05-0400 Systolic blood pressure 117 mm[Hg] [facility] 4 [facility] 04-21-2023 10:29-0400 Body mass index (BMI) [Ratio] 27.89 kg/m2 [address] 04-21-2023 10:29-0400 Body weight 76.[address] 02-20-2023 11:48-0500 Body height 165.1 cm Lyndsey Anders MD Work Phone: [facility] 02-20-2023 11:48-0500 Body mass index (BMI) [Ratio] 27.46 kg/m2 Lyndsey Anders MD Work Phone: [facility] 02-20-2023 11:48-0500 Body temperature 98.91 [degF] Lyndsey Anders MD Work Phone: [facility] 02-20-2023 11:48-0500 Body weight 74.84 kg Lyndsey Anders MD Work Phone: [facility] 02-20-2023 11:48-0500 Diastolic blood pressure 72 mm[Hg] Lyndsey Anders MD Work Phone: [facility] 02-20-2023 11:48-0500 Heart rate 104 /min Lyndsey Anders MD Work Phone: [facility] 02-20-2023 11:48-0500 SaO2% (BldA) [Mass fraction] 99 % Lyndsey Anders MD Work Phone: [facility] 02-20-2023 11:48-0500 Systolic blood pressure 114 mm[Hg] Lyndsey Anders MD Work Phone: [facility] 02-17-2023 14:26-0500 Body temperature 99.1 [degF] [facility] 3 [facility] 02-17-2023 14:26-0500 Diastolic blood pressure 77 mm[Hg] [facility] 3 [facility] 02-17-2023 14:26-0500 Heart rate 100 /min [address] 02-17-2023 14:26-0500 SaO2% (BldA) [Mass fraction] 97 % [address] 02-17-2023 14:26-0500 Systolic blood pressure 117 mm[Hg] [address] 02-17-2023 11:45-0500 Body mass index (BMI) [Ratio] 27.69 kg/m2 [address] 02-17-2023 11:45-0500 Body weight 75.[address] 02-17-2023 11:45-0500 Respiratory rate 20 /min [address] 02-06-2023 12:54-0500 Diastolic blood pressure 69 mm[Hg] Pf 3 [facility] 02-06-2023 12:54-0500 Heart rate 92 /min [facility] 3 [facility] 02-06-2023 12:54-0500 Respiratory rate 18 /min [facility] 3 [facility] 02-06-2023 12:54-0500 SaO2% (BldA) [Mass fraction] 100 % [facility] 3 [facility] 02-06-2023 12:54-0500 Systolic blood pressure 104 mm[Hg] Pf 3 [facility] 02-06-2023 11:37-0500 Body height 165.1 cm Pf 3 [facility] 02-06-2023 11:37-0500 Body mass index (BMI) [Ratio] 27.46 kg/m2 Pf 3 [facility] 02-06-2023 11:37-0500 Body temperature 98.4 [degF] Pf 3 [facility] 02-06-2023 11:37-0500 Body weight 74.84 kg Pf 3 [facility] Encounters Encounter Date Encounter Type Care Provider Facility Start: 04-14-2024 End: 04-14-2024 Bamboo flowsheet Parish Courtney DO Work Phone: [facility] Start: 04-14-2024 End: 04-14-2024 Bamboo flowsheet Parish Courtney DO Work Phone: [facility] Start: 04-14-2024 End: 04-14-2024 ambulatory PARISH COURTNEY Not Available Start: 04-14-2024 End: 04-14-2024 flow sheet Parish Courtney DO Work Phone: [facility] Comment on above: Diabetes mellitus sc reening; Second trimester ; 23 weeks gestation of Start: 03-24-2024 End: 03-24-2024 Clinisync Result Encounter Parish Courtney DO Work Phone: [facility] External Department Unsolicited Start: 03-24-2024 End: 03-24-2024 Clinisync Result Encounter Parish Courtney DO Work Phone: [facility] External Department Unsolicited Start: 03-17-2024 End: 03-17-2024 Bamboo flowsheet Yaquelin [...] Department Unsolicited Start: 03-08-2024 End: 03-08-2024 ambulatory [facility] Infusion Chair 1 [facility] Comment on above: [...] 02-14-2024 End: 02-14-2024 Clinisync Result Encounter Parish Courtney DO Work Phone: [facility] External Department Unsolicited Start: 02-14-2024 End: 02-14-2024 Clinisync Result Encounter Parish Courtney DO Work Phone: [facility] External Department Unsolicited Start: 02-03-2024 End: 02-03-2024 Orders Only Sharda Montiel MD Work Phone: [facility] Comment on above: Therapeutic drug mon itoring (Primary Dx) Start: 01-31-2024 End: 01-31-2024 Emergency department patient visit HILARY AVILES [facility] Start: 01-26-2024 End: 01-26-2024 ambulatory HILARY A [facility] Start: 01-26-2024 End: 01-26-2024 ambulatory HILARY Magen [facility] Start: 01-23-2024 End: 01-23-2024 ambulatory YAQUELIN HORNE Not Available Start: 01-23-2024 End: 01-23-2024 Office outpatient visit 5 minutes [facility] Courtney Nurse [facility] Comment on above: GA: 11w2d Start: 01-13-2024 End: 01-13-2024 Orders Only Dominique Moya PREDATORY ANIMAL HUNTER-ORTHOPEDIC PODIATRIST Work Phone: [facility] - Medical Oncology Comment on above: Iron deficiency anem ia due to chronic blood loss (Primary Dx); Iron malabsorption; Iron deficiency anemia, unspecified Start: 01-06-2024 End: 01-06-2024 Orders Only Dominique Moya PREDATORY ANIMAL HUNTER-ORTHOPEDIC PODIATRIST Work Phone: [facility] - [facility] On[facility] Comment on above: Iron deficiency anem ia due to chronic blood loss (Primary Dx); Iron malabsorption; Iron deficiency anemia, unspecified Start: 01-03-2024 End: 01-03-2024 Emergency department patient visit HILARY Magen [facility] Start: 12-17-2023 End: 12-18-2023 Telephone encounter Raf Zarco RN [facility] Start: 12-12-2023 End: 12-12-2023 ambulatory HILARY Magen [facility] Comment on above: Crohn's disease of b oth small and large intestine with intestinal obstruction (CMS-HCC) (Primary Dx) Start: 12-01-2023 End: 12-01-2023 Office outpatient visit 25 minutes Dominique Moya PREDATORY ANIMAL HUNTER-ORTHOPEDIC PODIATRIST Work Phone: [facility] Comment on above: Iron deficiency (Ping hussein Dx); Crohn's disease of both small and large intestine with intestinal obstruction (CMS-HCC); Chronic fatigue; Leg cramps; Noncompliance; Iron deficiency anemia due to chronic blood loss; Iron malabsorption; Iron deficiency anemia, unspecified Start: 12-01-2023 End: 12-01-2023 ambulatory DOMINIQUE MOYA [facility] Start: 12-01-2023 End: 12-01-2023 ambulatory MJ PIZARRO [facility] Start: 10-31-2023 End: 10-31-2023 Office outpatient visit 25 minutes Sharda Montiel MD Work Phone: [facility] Comment on above: Therapeutic drug mon itoring (Primary Dx); Crohn's disease of both small and large intestine with other complication (CMS-HCC) Start: 10-31-2023 End: 10-31-2023 ambulatory [facility] Comment on above: Crohn's disease of b oth small and large intestine with intestinal obstruction (CMS-HCC) (Primary Dx) Start: 09-17-2023 End: 09-17-2023 ambulatory [facility] Start: 09-17-2023 End: 09-17-2023 Office outpatient visit 25 minutes Hilary Aviles PREDATORY ANIMAL HUNTER-ORTHOPEDIC PODIATRIST Work Phone: [facility] Comment on above: Current moderate epi sode of major depressive disorder without prior episode (CMS-HCC) (Primary Dx); Crohn's disease of both small and large intestine with intestinal obstruction (CMS-HCC) Start: 09-15-2023 End: 09-15-2023 ambulatory YAQUELIN HORNE Not Available Start: 09-15-2023 End: 09-16-2023 Telephone encounter Sharda Montiel MD Work Phone: [facility] Start: 09-15-2023 End: 09-15-2023 ambulatory [facility] Comment on above: Crohn's disease of b oth small and large intestine with intestinal obstruction (CMS-HCC) (Primary Dx) Start: 09-03-2023 End: 09-03-2023 Telephone encounter Hilary Aviles PREDATORY ANIMAL HUNTER-ORTHOPEDIC PODIATRIST [facility] Start: 09-03-2023 End: 09-03-2023 ambulatory [facility] Start: 09-03-2023 End: 09-03-2023 Phys/qhp telephone evaluation 11-20 min [facility] PREDATORY ANIMAL HUNTER-ORTHOPEDIC PODIATRIST Work Phone: [facility] Comment on above: Reactive depression (Primary Dx) Start: 08-20-2023 End: 08-20-2023 ambulatory [facility] Start: 08-20-2023 End: 08-20-2023 Office outpatient visit 25 minutes [facility] PREDATORY ANIMAL HUNTER-ORTHOPEDIC PODIATRIST Work Phone: [facility] Comment on above: Anxiety (Primary Dx) Start: 08-04-2023 End: 08-04-2023 [facility] Start: 08-04-2023 End: 08-04-2023 [facility] Comment on above: Crohn's disease of b oth small and large intestine with intestinal obstruction (CMS-HCC) (Primary Dx) Start: 06-18-2023 End: 06-19-2023 Telephone encounter Ariane Jarquin CMA [facility] Start: 06-10-2023 End: 06-19-2023 Telephone encounter Raf Zarco [facility] Start: 06-09-2023 End: 06-09-2023 Orders Only Deisy Vera RN [facility] Comment on above: Crohn's disease of b oth small and large intestine with intestinal obstruction (CMS-HCC) (Primary Dx) Start: 04-21-2023 Telephone encounter Sharda Elliott MD Work Phone: [facility] Start: 04-21-2023 End: 04-21-2023 ambulatory [facility] Comment on above: Crohn's disease of b oth small and large intestine with intestinal obstruction (CMS-HCC) (Primary Dx) Start: 04-14-2023 Telephone encounter Nic Aguilar [facility] Start: 03-31-2023 Telephone encounter Nic Aguilar [facility] Start: 03-19-2023 End: 03-19-2023 ambulatory [facility] Donovan NADER [facility] Start: 02-20-2023 End: 02-20-2023 Office outpatient visit 25 minutes Lyndsey Anedrs MD Work Phone: [facility] Comment on above: Reactive airway dise ase with acute exacerbation, unspecified asthma severity, unspecified whether persistent (Primary Dx); Shortness of breath; COVID-19; Sinusitis, unspecified chronicity, unspecified location Start: 02-20-2023 End: 02-20-2023 ambulatory ALEC Man NADER [facility] Start: 02-17-2023 End: 02-17-2023 ambulatory [facility] Infusion Chair 3 [facility] Comment on above: Crohn's disease of b oth small and large intestine with intestinal obstruction (CMS-HCC) (Primary Dx) Start: 02-06-2023 End: 02-06-2023 ambulatory MJ Aguilar [facility] Comment on above: Iron deficiency anem ia due to chronic blood loss (Primary Dx); Iron deficiency anemia, unspecified; Iron malabsorption Start: 04-30-2022 End: 04-30-2022 ambulatory SEBASTIAN HERRING Facility: Start: 12-03-2016 End: 12-04-2016 Ambulatory SAMARA HERNANDEZ [facility] Start: 11-19-2016 End: 11-26-2016 Ambulatory SAMARA HERNANDEZ [facility] Start: 10-29-2016 End: 10-30-2016 Ambulatory SAMARA HERNANDEZ [facility] Start: 10-01-2016 End: 10-01-2016 Ambulatory SAMARA HERNANDEZ [facility] Start: 08-29-2016 End: 08-29-2016 Ambulatory SAMARA HERNANDEZ [facility] Procedures Date Procedure Procedure Detail Performing Clinician Start: 03-24-2024 US OB ANATOMY Parish Mac io DO Work Phone: Start: 03-24-2024 US OB CERVICAL LENGTH C orey Courtney DO Work Phone: Start: 03-17-2024 RECURRENT VAGINITIS (HTRX) Yaquelin BELCHER [...] Start: 09-17-2023 Adult depression scr eening assessment Hilary Aviles PREDATORY ANIMAL HUNTER-ORTHOPEDIC PODIATRIST Work Phone: Start: 09-17-2023 Microscopic observat ion [Identifier] in Cervix by Cyto stain Sharda Montiel MD Work Phone: Start: 08-20-2023 Adult depression scr eening assessment Hilary Aviles PREDATORY ANIMAL HUNTER-ORTHOPEDIC PODIATRIST Work Phone: Start: 11-23-2020 Adult depression scr eening assessment Pfo 3 Plan of Treatment Date Care Activity Detail Author Start: 09-16-2026 Screening for malign ant neoplasm of cervix Pap Smear [facility] Start: 01-30-2025 Adult BMI Screening Adult BMI Screen ing [facility] Start: 01-30-2025 Tobacco Screening Tobacco Screening [facility] Start: 01-02-2025 Adult BMI Screening Adult BMI Screen ing [facility] Start: 01-02-2025 Tobacco Screening Tobacco Screening [facility] Start: 12-11-2024 Adult BMI Screening Adult BMI Screen ing [facility] Start: 12-02-2024 End: 12-02-2024 Patient encounter procedure 12/02/2024 10:15 AM EDT Office Visit [facility] [address] [place] [address] Mj Pizarro MD [address] [place] [address] [facility] Start: 10-30-2024 Adult BMI Screening Adult BMI Screen ing [facility] Start: 10-30-2024 Tobacco Screening Tobacco Screening [facility] Start: 09-16-2024 Adult BMI Screening Adult BMI Screen ing [facility] Start: 09-16-2024 Depression Screening Depression Scre ening [facility] Start: 09-16-2024 Tobacco Screening Tobacco Screening [facility] Start: 09-14-2024 Adult BMI Screening Adult BMI Screen ing [facility] Start: 09-02-2024 Tobacco Screening Tobacco Screening [facility] Start: 08-19-2024 Adult BMI Screening Adult BMI Screen ing [facility] Start: 08-19-2024 Depression Screening Depression Scre ening [facility] Start: 08-19-2024 Tobacco Screening Tobacco Screening [facility] Start: 08-03-2024 Adult BMI Screening Adult BMI Screen ing [facility] Start: 05-31-2024 End: 05-31-2024 ambulatory 05/31/2024 10:00 AM EDT Infusion [facility] [address] [facility] [address] [place] [phone] [facility] Start: 05-12-2024 End: 05-12-2024 Patient encounter procedure 05/12/2024 2:30 PM EDT Routine [facility] [address] [place] [address] Yaquelin Horne PA [address] [place] [address] [facility] Start: 04-21-2024 End: 04-21-2024 Professional / ancillary services management 04/21/2024 11:00 AM EDT Ancillary Procedure [facility] [address] [place] [phone] [facility] Start: 04-20-2024 Adult BMI Screening Adult BMI Screen ing [facility] Start: 04-19-2024 End: 04-19-2024 ambulatory 04/19/2024 10:30 AM EDT [facility] [address] [facility] [address] [place] [phone] [facility] Start: 04-19-2024 End: 04-19-2024 Patient encounter procedure 04/19/2024 10:00 AM EDT Office Visit [facility] [address] [facility] [address] [place] [address] Sharda Montiel MD [address] [facility] [place] [address] [facility] Start: 04-14-2024 End: 04-14-2025 CBC panel - Blood by Automated count CBC Lab Routine Diabetes mellitus screening Expected: 04/14/2024 (Approximate), Expires: 04/14/2025 [facility] Work Phone: Comment on above: Expected: 04/14/2024 (Approximate), Expires: 04/14/2025 Start: 04-14-2024 End: 04-14-2025 Measurement of glucose 1 hour after glucose challenge for glucose tolerance test Glucose tolerance, 1 hour Lab Routine Diabetes mellitus screening Expected: 04/14/2024 (Approximate), Expires: 04/14/2025 [facility] Comment on above: Expected: 04/14/2024 (Approximate), Expires: 04/14/2025 Start: 04-14-2024 End: 04-14-2024 Patient encounter procedure 04/14/2024 1:40 PM EST Routine [facility] [address] [facility] [place] [phone] Parish Valdez DO [address] [place] [address] [facility] Start: 03-17-2024 End: 09-14-2024 Alpha fetoprotein, maternal Alpha fetoprotein, maternal Lab Routine Second trimester 19 weeks gestation of Expected: 03/17/2024 (Approximate), Expires: 09/14/2024 [facility] Comment on above: Expected: 03/17/2024 (Approximate), Expires: 09/14/2024 Start: 03-17-2024 End: 03-17-2025 US for US OB 14+ weeks anatomy scan Imaging Routine Screening, , for anatomic survey Expected: 03/17/2024, Expires: 03/17/2025 [facility] Comment on above: Expected: 03/17/2024 , Expires: 03/17/2025 Start: 03-17-2024 End: 03-17-2024 Patient encounter procedure 03/17/2024 10:30 AM EST Routine [facility] [address] [place] [phone] Yaquelin Horne PA [address] [place] [address] [facility] Start: 03-08-2024 End: 03-08-2024 ambulatory 03/08/2024 10:00 AM EST Infusion [facility] [address] [facility] [address] [place] [phone] [facility] Start: 02-21-2024 Adult BMI Screening Adult BMI Screen ing [facility] Start: 02-21-2024 Tobacco Screening Tobacco Screening [facility] Start: 02-18-2024 Adult BMI Screening Adult BMI Screen ing [facility] Start: 02-18-2024 End: 02-18-2024 Patient encounter procedure 02/18/2024 11:30 AM EST Routine [facility] [address] [place] [id number] Parish Valdez DO [address] [place] [address] [facility] Start: 02-07-2024 Tobacco Screening Tobacco Screening [facility] Start: 01-31-2024 Adult BMI Screening Adult BMI Screen ing [facility] Start: 01-31-2024 Tobacco Screening Tobacco Screening [facility] Start: 01-26-2024 End: 01-26-2024 ambulatory 01/26/2024 10:00 AM EST Infusion [facility] [address] [facility]. [address] [place] [phone] [facility] Start: 01-23-2024 End: 01-22-2025 ABO/Rh ABO/Rh Lab Routine Missed menses , unspecified gestational age Expected: 01/23/2024 (Approximate), Expires: 01/22/2025 [facility] Comment on above: Expected: 01/23/2024 (Approximate), Expires: 01/22/2025 Start: 01-23-2024 End: 01-22-2025 Blood type and Indirect antibody screen panel - Blood Type and screen Lab Routine Missed menses , unspecified gestational age Expected: 01/23/2024 (Approximate), Expires: 01/22/2025 [facility] Work Phone: Comment on above: Expected: 01/23/2024 (Approximate), Expires: 01/22/2025 Start: 01-23-2024 End: 01-22-2025 Drugs of abuse panel - Urine by Screen method Rapid drug screen, urine Lab Routine , unspecified gestational age Encounter for supervision of normal first in first trimester Expected: 01/23/2024 (Approximate), Expires: 01/22/2025 [facility] Comment on above: Expected: 01/23/2024 (Approximate), Expires: 01/22/2025 Start: 01-23-2024 End: 01-22-2025 US Pelvis transvaginal US OB transvaginal Imaging Routine Missed menses Expected: 01/23/2024 (Approximate), Expires: 01/22/2025 [facility] Comment on above: Expected: 01/23/2024 (Approximate), Expires: 01/22/2025 Start: 12-22-2023 End: 12-22-2023 Patient encounter procedure 12/22/2023 3:40 PM EST Office Visit [facility] [address] [place] [phone] Hilary Aviles APRN-ORTHOPEDIC PODIATRIST [address], [place] [address] [facility] Start: 12-12-2023 End: 12-12-2023 ambulatory 12/12/2023 10:00 AM EDT [facility]fusion [facility] [address] [phone] [facility] Start: 11-20-2023 End: 11-20-2023 Patient encounter procedure 11/20/2023 1:00 PM EDT Office Visit [facility] [address] [place] [address] Mj Pizarro MD [address] [place] [address] [address] [place] [address] [facility] Start: 11-19-2023 End: 11-19-2023 Patient encounter procedure 11/19/2023 9:40 AM EDT Office Visit [facility] [address] [place] [phone] Hilary Aviles APRN-ORTHOPEDIC PODIATRIST [address], [place] [address] [facility] Start: 10-31-2023 End: 10-30-2024 C-reactive protein C-reactive protein Lab Routine Crohn's disease of both small and large intestine with other complication ([facility]) Expected: 10/31/2023, Expires: 10/30/2024 [facility] Comment on above: Expected: 10/31/2023 , Expires: 10/30/2024 Start: 10-31-2023 End: 10-30-2024 Cyanocobalamin vitamin b-12 Vitamin B12 Lab Routine Crohn's disease of both small and large intestine with other complication ([facility]) Expected: 10/31/2023, Expires: 10/30/2024 [facility] Comment on above: Expected: 10/31/2023 , Expires: 10/30/2024 Start: 10-31-2023 End: 10-30-2024 Erythrocyte sedimentation rate Erythrocyte Sedimentation Rate (ESR) Lab Routine Crohn's disease of both small and large intestine with other complication ([facility]) Expected: 10/31/2023, Expires: 10/30/2024 [facility] [employer] [facility] Comment on above: Expected: 10/31/2023 , Expires: 10/30/2024 Start: 10-31-2023 End: 10-31-2023 ambulatory 10/31/2023 9:30 AM EDT Infusion [facility] [address] [place] [phone] [facility] Start: 10-31-2023 End: 10-31-2023 Patient encounter procedure 10/31/2023 9:00 AM EDT Office Visit [facility] [address] [place], [place] [address] [phone] [place] [address] [place] [address], [address] [place] [address] [facility] Start: 10-27-2023 End: 10-27-2023 ambulatory 10/27/2023 12:00 PM EDT Infusion [facility] [address] [place] [address] [address] [place] [address] [facility] Start: 10-27-2023 End: 10-27-2023 Patient encounter procedure 10/27/2023 11:30 AM EDT Office Visit [facility] [address] [place], [place] [address] [address] Sharda Montiel MD [address] [facility] [place] [address] [facility] Start: 10-12-2023 Influenza vaccination Influenza Vacc ine [facility] Start: 09-17-2023 End: 09-17-2023 Patient encounter procedure 09/17/2023 9:20 AM EDT Office Visit [facility] [address] [place] [address] [place] [phone] Hilary Aviles, PREDATORY ANIMAL HUNTER-ORTHOPEDIC PODIATRIST [address] [facility] [address], [place] [address] [facility] Start: 09-15-2023 End: 09-15-2023 ambulatory 09/15/2023 10:00 AM EDT Infusion [facility] [address] [place] [phone] [facility] Start: 06-17-2023 End: 06-17-2023 Patient encounter procedure 06/17/2023 11:15 AM EDT Office Visit [facility] [address] [place] [address] [address] [place] [phone] Meaghan King PA-C [address] [facility] [address] [place] [address] [facility] Start: 06-10-2023 End: 06-10-2023 ambulatory 06/10/2023 10:30 AM EDT Infusion [facility] [address] [facility] [address] [place] [address] [facility] Start: 04-21-2023 End: 04-21-2023 ambulatory 04/21/2023 10:00 AM EDT Infusion [facility] [address] [facility] [address] [place] [phone] [facility] Start: 03-31-2023 End: 03-31-2023 ambulatory 03/31/2023 10:00 AM EST [facility] [address] [facility] [address] [place] [address] [facility] Start: 02-17-2023 End: 02-17-2023 ambulatory 02/17/2023 11:30 AM EST [facility] [address] [facility] [address] [place] [address] [facility] Start: 10-11-2022 Influenza vaccination Influenza Vacc ine [facility] Start: 11-23-2021 Depression Screening Depression Scre ening [facility] Start: 2010 Screening for malign ant neoplasm of cervix Pap Smear [facility] Start: 2008 DTaP,Tdap and Td Vaccines (1 - Tdap) DTaP,Tdap and Td Vaccines (1 - Tdap) [facility] Start: 11-11-2007 Adult BMI Follow Up Plan Adult BMI F ollow Up Plan [facility] Bacteria identified in Urine by Culture Urine culture Microbiology Routine Missed menses Ordered: 01/23/2024 [facility] Comment on above: Ordered: 01/23/2024 End: 10-30-2024 Basic metabolic 2000 panel - Serum or Plasma Basic Metabolic Panel Lab Routine Therapeutic drug monitoring Crohn's disease of both small and large intestine with other complication ([facility]) 1 Occurrences starting 10/31/2023 until 10/30/2024 [facility] Comment on above: 1 Occurrences starti ng 10/31/2023 until 10/30/2024 End: 10-30-2024 Calprotectin, F Calprotectin, F Lab Routine Crohn's disease of both small and large intestine with other complication ([facility]) 1 Occurrences starting 10/31/2023 until 10/30/2024 [facility] Work Phone: Comment on above: 1 Occurrences starti ng 10/31/2023 until 10/30/2024 End: 10-30-2024 CBC panel - Blood by Automated count CBC without diff Lab Routine Therapeutic drug monitoring 1 Occurrences starting 10/31/2023 until 10/30/2024 [facility] [employer] [facility] Comment on above: 1 Occurrences starti ng 10/31/2023 until 10/30/2024 CBC W Auto Different ial panel - Blood CBC and differential Lab Routine Missed menses , unspecified gestational age Ordered: 01/23/2024 [facility] Comment on above: Ordered: 01/23/2024 CHLAMYDIA TRACHOMATI S (GENITO/STI) CHLAMYDIA TRACHOMATIS (GENITO/STI) Lab Routine STD exposure Ordered: 03/17/2024 [facility] Comment on above: Ordered: 03/17/2024 Hemoglobin A1c/Hemoglobin.total in Blood Hemoglobin A1c Lab Routine Missed menses , unspecified gestational age Ordered: 01/23/2024 [facility] Comment on above: Ordered: 01/23/2024 Hepatitis B virus surface Ag [Presence] in Serum or Plasma by Immunoassay Hepatitis B surface antigen Lab Routine Missed menses , unspecified gestational age Ordered: 01/23/2024 [facility] Comment on above: Ordered: 01/23/2024 Hepatitis C virus Ab [Presence] in Serum or Plasma by Immunoassay Hepatitis C antibody Lab Routine Missed menses , unspecified gestational age Ordered: 01/23/2024 [facility] Comment on above: Ordered: 01/23/2024 HIV-1/HIV-2 antigen/antibody combination immunoassay HIV-1 and HIV-2 antibodies Lab Routine Missed menses , unspecified gestational age Ordered: 01/23/2024 [facility] Comment on above: Ordered: 01/23/2024 End: 10-30-2024 Liver panel Liver panel Lab Routine Therapeutic drug monitoring Crohn's disease of both small and large intestine with other complication (CMS-HCC) 1 Occurrences starting 10/31/2023 until 10/30/[facility] on above: 1 Occurrences starti ng 10/31/2023 until 10/30/2024 End: 06-08-2024 Mycobacterium TB by Quantiferon Gold Mycobacterium TB by Quantiferon Gold Lab Routine Crohn's disease of both small and large intestine with intestinal obstruction (CMS-HCC) 1 Occurrences starting 06/09/2023 until 06/08/2024 [employer] Work Phone: Comment on above: 1 Occurrences starti ng 06/09/2023 until 06/08/2024 Neisseria gonorrhoea e DNA [Presence] in Unspecified specimen by ROBERT with probe detection Neisseria gonorrhea DNA probe, direct Lab Routine STD exposure Ordered: 03/17/2024 [facility] [employer] Comment on above: Ordered: 03/17/2024 End: 02-07-2023 Oxygen Therapy - Maintain SpO2: 90% or greater; *CHANNEL SALES MANAGER Guidelines for O2: Yes; Document: [email or web address]/[email or web address] n%[id number] Oxygen Therapy - Maintain SpO2: 90% or greater; *CHANNEL SALES MANAGER Guidelines for O2: Yes; Document: [email or web address] 20Guidelines/CPG%20Oxyge n%[id number] Respiratory Care STAT [...] menses , unspecified gestational age Ordered: 01/23/2024 [facility] Comment on above: Ordered: 01/23/2024 Rubella antibody, IgG Rubella an tibody, IgG Lab Routine Missed menses , unspecified gestational age Ordered: 01/23/2024 [facility] [employer] Comment on above: Ordered: 01/23/2024 SURESWAB(R) ADVANCED VAGINITIS PLUS, TMA SURESWAB(R) ADVANCED VAGINITIS PLUS, TMA Pathology and Cytology Routine Vaginal discharge Ordered: 03/17/2024 [facility] [employer] Work Phone: Comment on above: Ordered: 03/17/2024 End: 02-02-2025 Thiopurine Metabs Thiopurine Metabs Lab Routine Therapeutic drug monitoring 1 Occurrences starting 02/03/2024 until 02/02/2025 [employer] Work Phone: Comment on above: 1 Occurrences starti ng 02/03/2024 until 02/02/2025 End: 10-30-2024 Thiopurine Metabs Thiopurine Metabs Lab Routine Therapeutic drug monitoring 1 Occurrences starting 10/31/2023 until 10/30/2024 [employer] Comment on above: 1 Occurrences starti ng 10/31/2023 until 10/30/2024 End: 10-30-2024 Vitamin D 25 hydroxy Vitamin D 25 hydroxy Lab Routine Crohn's disease of both small and large intestine with other complication ([facility]) 1 Occurrences starting 10/31/2023 until 10/30/2024 [employer] Comment on above: 1 Occurrences starti ng 10/31/2023 until 10/30/2024 Payers Date Payer Category Payer Medicaid ANTHE[place] MED[place] MEDICA[place] [id number] 2022-Present [address] [place] [address] [id number] 2022 Medicaid [id number] 2021 Commercial Managed C are - POS AETNA [id number] 2021 Managed Care O (unspecified) AETNA [id number] 2021 Private Health Insurance AETNA AETNA POS II [id number] 2021-Present [phone] [facility] [id number] [place] [id number]. 2.7.3.824710.315 1989 Unknown [id number] 2.16840.1.951924.3.579. 2.593 1989 Unknown [id number] 2.16840.1.197202.3.579. 2.1286 1989 Unknown [id number] 2.16840.1.509873.3.579. 2.1286 1989 Unknown [id number] 2.16.840.1.908964.3.579. 2.1286 1989 Unknown [id number] 2.16.840.1.051690.3.579. 2.1286 1989 Unknown [id number] 2.16.840.1.800938.3.579. 2.1286 1989 Unknown [id number] 2.16840.1.888153.3.579. 2.1286 1989 Unknown [id number] 2.16.840.1.530121.3.579. 2.6 1989 Unknown [id number] 2.16.840.1.111509.3.579. 2.6 1989 Unknown [id number] 2.16.840.1.728247.3.579. 2.6 1989 Unknown [id number] 2.16.840.1.931444.3.579. 2.1286 1989 Unknown [id number] 2.16.840.1.514290.3.579. 2.1285 1989 Unknown [id number] 2.16.840.1.092748.3.579. 2.6 1989 Unknown [id number] 2.16.840.1.255271.3.579. 2.1285 1989 Unknown [id number] 2.16.840.1.788721.3.579. 2.1285 1989 Unknown [id number] 2.16.840.1.831375.3.579. 2.1285 1989 Unknown [id number] 2.16.840.1.002288.3.579. 2.6 1989 Unknown [id number] 2.16.840.1.959254.3.579. 2.1285 1989 Unknown [id number] 2.16.840.1.781019.3.579. 2.1285 1989 Unknown [id number] 2.16.840.1.715494.3.579. 2.1285 1989 Unknown [id number] 2.16.840.1.553824.3.579. 2.1285 1989 Unknown [id number] 2.16.840.1.332479.3.579. 2.9 1989 Unknown [id number] 2.16.840.1.251973.3.579. 2.1259 1989 Unknown [id number] 2.16.840.1.387658.3.579. 2.1259 1989 Unknown [id number] 2.16.840.1.643946.3.579. 2.1259 1989 Unknown [id number] 2.16.840.1.904295.3.579. 2.1259 1959 Private Health Insurance [id number] Social History Date Type Detail Facility Start: 12-27-2021 End: 10-09-2022 Tobacco smoking status NHIS Never smoked tobacco [facility] Start: 12-27-2021 End: 10-09-2022 Tobacco use and exposure Smokeless tobacco non-user [facility] Start: 01-23-2024 End: 03-17-2024 Alcoholic beverage intake Lifetime non-drinker (finding) [facility] Start: 02-29-2020 End: 09-15-2023 History of Social function [facility] Start: 02-29-2020 End: 09-15-2023 Tobacco use panel [facility] Start: 11-19-2023 [facility] Start: 1990 Sex assigned at Female [facility] Start: 09-12-2022 Gender identity Identifies as female gender (finding) [facility] Start: 09-12-2022 Sexual orientation Heterosexual (finding) [facility] Start: 01-03-2024 End: 01-31-2024 Alcoholic beverage intake Current non-drinker of alcohol (finding) [facility] Adolescent depressio n screening assessment 15 [facility] Start: 1990 Sex assigned at Not on file [facility] Start: 09-13-2014 Sex Female (finding) [facility] Goals Date Patient Goal Desired Activity /State Personal health goal Comment on above: Formatting of this n ote might be different from the original. Evaluation of progress towards goal: patient to discharge to home. Clinical Notes 02-06-2023 to 04-14-2024 Karli Coronado LPN - 04/14/2024 1:40 PM SIMI Vazquez - 03/17/2024 10:30 AM Vince Barba, JAD - 03/08/2024 10:00 AM aBrt Zarco, JAD - 03/08/2024 10:00 AM ESTPatient Instructions Note Date & Type Note Facility 04-14-2024 History of Present illness Narrative Reason for [...] Surgical History: Procedure Laterality Date COLONOSCOPY 2017 REVIEW OF SYSTEMS Review of Systems: Review [...] nursing note reviewed. Exam conducted with a dice maker present. Vitals: Estimated body mass index is 30.42 kg/m as calculated from the following: Height as of 09/15/23: 5' 5 . Weight as of this encounter: 182 lb 12.8 oz. BP: 122/72 Patient's last menstrual period was 11/05/2023. ASSESSMENT & PLAN ICD-10-CM 1. Diabetes mellitus screening Z13.1 CBC Glucose tolerance, 1 hour CBC Glucose tolerance, 1 hour 2. Second trimester Z34.92 3. 23 weeks gestation of Z3A.23 POCT urinalysis dipstick manually resulted Patient presents today for a routine obstetrics appointment. Patient is currently 23w0d with a Estimated Date of Delivery: 08/11/24.Reviewed anatomy scan with pt in detail. Pt to return in 4 weeks Documented by Karli Coronado LPN on behalf of: Parish Valdez DO documented in this encounter [facility] 03-17-2024 History of Present illness Narrative Reason [...] obtained without difficulty and patient was given [facility] order to have obtained. Orders Placed This Encounter Procedures US OB 14+ weeks anatomy scan CHLAMYDIA TRACHOMATIS (GENITO/STI) Neisseria gonorrhea DNA probe, direct Alpha fetoprotein, maternal Follow Up: Patient is to return to our office in 4 weeks for routine OB appointment Documented by SIMI Frazier on behalf of: SIMI Frazier documented in this encounter [facility] 03-08-2024 History of Present illness Narrative Infusion start time: 1040 Patient here for Avsola infusion. Patient denies any recent infections or on antibiotics, open wounds, recent/future surgery, vaccinations or insurance changes. IV started with 22g needle to left forearm by Yaquelin Braba RN x1 attempt. Patient tolerated well. Avsola Lot# [id number] 2vials Exp- 09/10/2027 Lot#[id number] 2 vials Exp08/10/2027 Time out performed prior to medication administration. Name, , medication(s) verified 10:40 am Time out performed with Yaquelin STREET. Avsola to be mixed and administered to patient per current treatment plan orders 1240 patient infusion complete. IV flushed with 10 ml normal saline. IV discontinued, catheter intact, vitals WNL. Patient tolerated infusion well documented in this encounter [facility] 02-18-2024 History of Present illness Narrative Reason [...] nursing note reviewed. Exam conducted with a dice maker present. Vitals: Estimated body mass index is [...] or undercooked meat, and stay away from [facility]. Patient has been consulted regarding any [...] Parish Valdez DO documented in this encounter [facility] 01-23-2024 History of Present illness Narrative [...] or undercooked meat, and stay away from [facility]. Patient has also been advised to [...] Veronica Klein LPN documented in this encounter [facility] 12-17-[address] Montiel, Patient called stating she took a urine test this past Friday and it was positive. She receives Inflectra 400 mg every 6 weeks for her Crohn's. She also takes Imuran 150 mg po daily. Ileshmuel is inquiring if she can continue taking [...] send a letter to the family doctor/PCP, Ins[employer] Cutter [employer] Former, and president college or university advising against the use of live vaccines for the 1st 6 months of the baby's life and to monitor the baby closely for any signs of infection. Please send her the following as well: [email or web address]/[email or web address]-bw-[email or web address]-[email or web address] -[email or web address]-[email or web address] I recommend an OV w me in 02/2024 or 03/2024 Please disregard notes below. Summary These recommendations are in accordance with the findings of the ongoing PIANO study, The Napoleon Consensus Statements for the Management of Inflammatory Bowel Disease in , and the clinical care pathway released by the AGA. - Johnathan Farr, Yady BROWN, Lobito CD. Drug Safety and Risk of Adverse Outcomes for Patients With Inflammatory Bowel Disease. Gastroenterology. 2017;152(2):451-462.e2. - Gastroenterology. 2016 Apr;150[3]:734-57 - Johnathan Farr, Rey C, Ama N, et al. Inflammatory bowel disease in clinical care pathway: a report from the [place] gastroenterological association [facility] project working group. Gastroenterology. 2019;156(5):5069-0504. Spoke with patient regarding recommendations, sent via [employer]. Will call patient back when March schedule is out, she needs Mondays. documented in this encounter [employer] 12-17-[address] Montiel, Patient called stating she took a urine test this past Friday and it was positive. She receives Inflectra 400 mg every 6 weeks for her Crohn's. She also takes Imuran 150 mg po daily. Phillipshmuel is inquiring if she can continue taking her Imuran and Inflectra infusions? Please advise, thank you [employer] 12-17-2023 Telephone encounter Note Please let her [...] send a letter to the family doctor/PCP, [employer] Former, and president college or university advising against the use of live vaccines for the 1st 6 months of the baby's life and to monitor the baby closely for any signs of infection. Please send her the following as well: [email or web address] [email or web address]/blog/[email or web address]-[email or web address]-[email or web address]-[email or web address]-[email or web address] -[email or web address]-[email or web address]-[email or web address] I recommend an OV w me in 02/2024 or 03/2024 Please disregard notes below. Summary These recommendations are in accordance with the findings of the ongoing PIANO study, The [place] Consensus Statements for the Management of Inflammatory Bowel Disease in , and the clinical care pathway released by the AGA. - Johnathan Farr, Yayd RA, Lobito CD. Drug Safety and Risk of Adverse Outcomes for Patients With Inflammatory Bowel Disease. Gastroenterology. 2017;152(2):451-462.e2. - Gastroenterology. 2016 Mar;150[3]:734-57 - Johnathan Farr, Rey C, Ama N, et al. Inflammatory bowel disease in clinical care pathway: a report from the [place] gastroenterological association [facility] project working group. Gastroenterology. 2019;156(5):3048-4205. [employer] 12-17-2023 Telephone encounter Note Spoke with patient regarding recommendations, sent via [employer]. Will call patient back when March schedule is out, she needs Mondays. Results [employer] 12-12-2023 History of Present illness Narrative Infusion start time: 10:50 am Patient here for Inflectra infusion. Patient denies any recent infections or on antibiotics, open wounds, recent/future surgery, vaccinations or insurance changes. 10:30 am IV started with 22g needle to right hand by JAD Arroyo x1 attempt. Patient tolerated well. Inflectra x 4 vials Lot# [id number] Exp- 04/09/2028 Time out performed prior to medication administration. Name, , medication(s) verified 11:50 am patient infusion complete. IV flushed with 10 ml normal saline. IV discontinued, catheter intact, vitals WNL. Patient tolerated infusion well documented in this encounter [employer] 12-01-2023 History of Present illness Narrative Images from the original note were not included. [facility] [address] [place] [id number] 12/01/2023 Chief Complaint Patient presents with Follow-up [...] small and large intestine with intestinal obstruction ([facility]) Other Visit Diagnoses Iron deficiency - Primary [...] procedures Referring and communicating with other health child care worker (not separately reported) Documenting clinical information in the electronic or other health record Independently interpreting results (not separately reported) and communicating results to the patient/family/caregiver Care coordination (not separately reported) ---- Please note that portions of this note may have been generated using voice recognition [employer] dictation software. Although every effort was made to ensure the accuracy of any automated transcriptions, some errors may have occurred. TERA Carbajal 12/01/23 1502 documented in this encounter [employer] 12-01-2023 Instructions TERA Carbajal - 12/01/2023 2:30 PM EDT Pending labs If iron is low, will order Injectafer IV If iron is low, will repeat labs in 3 months CBC-d iron panel ferritin If iron is normal, just follow up yearly as below Follow up yearly with labs same as above documented in this encounter [employer] 10-31-2023 History of Present illness Narrative IV Infusion start time: 944. Patient here for Inflectra infusion. Patient denies any recent infections or on antibiotics, open wounds, recent/future surgery, vaccinations or insurance changes. IV started with 22g needle to left hand by JAD Arroyo x1 attempt. Patient tolerated well. Inflectra x 4 vials Lot# [id number] Exp- [id number] Time out performed prior to medication administration. Name, , medication(s) verified 11:13 am patient infusion complete. IV discontinued, catheter intact, vitals WNL. Patient tolerated infusion well documented in this encounter [facility] 10-31-2023 History of Present illness Narrative [facility] Follow Up Visit CHIEF COMPLAINT: Chief Complaint Patient presents with Follow-up Patient is here for a follow up and denies any issues. HISTORY OF PRESENT ILLNESS: 32F h/o gallstones and complicated ileocolonic Crohn's disease here for f/u. Last seen 10/2022; summary of that visit: Her last IFX was 10/25/2022. She remains on AZA 150mg/d and folic acid 1mg/d. She is also on a MVI, PO iron + vitC daily, vitD 5000IU/d, B12 1mg/d. She's doing well overall, having 1 BM/d, BSS 4-5. No bleeding and no abd pain. SIBDQ = 7, HBI = 0 c/w clnical remission. She doesn't believe she got her HAV vaccination. Proceed w HAV vaccination. Will update nutritional markers. Cont infliximab 5mg/kg q6 wks and AZA 150mg/d + folic acid. Interval history / Interim evaluation: Labs 08/04/23: CBC unremarkable, iron studies w iron 46, ferritin 27, sat 17%, TIBC nl, TB quantiferon gold neg Since her last visit she has had multiple no shows for infusions and an OV (06/17/23, 06/10/23, 04/14/23, and 06/17/22, 11/10/20 prior to this). Her last infusion of IFX was 09/15/2023. She never had the labs that were ordered after her last OV done. She remains on IFX 5mg/kg q6wks + AZA 150mg/d and folic acid 1mg/d. She is on vitD 400IU/d and B12 1000mcg/d. She is no longer on PO iron or an MVI. Recent labs show normal CBC and iron levels, but ongoing mild iron deficiency. She has not received her HAV vaccine yet. SIBDQ = 7, HBI = 2 c/w clnical remission. Short IBD Questionnaire (SIBDQ): Short IBD Questionnaire How often has the feeling of fatigue or of being tired and worn out been a problem for you during the last 2 weeks? : Some of the time How often during the last 2 weeks have you had to delay or cancel a social engagement because of your bowel problem?: None of the time How much difficulty have you had, as a result of your bowel problem, doing leisure or sports activities you would have liked to have done during the last 2 weeks?: Some difficulty (none) How often during the last 2 weeks have you been troubled by pain in the abdomen?: None of the time How often during the last 2 weeks have you felt depressed or discouraged?: None of the time Overall, in the last 2 weeks, how much of a problem have you had with passing large amounts of gas?: No trouble Overall, in the last 2 weeks, how much of a problem have you had maintaining or getting to the weight you would like to be?: No trouble How often during the last 2 weeks have you felt relaxed and free of tension?: All of the time How much of the time during the last 2 weeks have you been troubled by a feeling of having to go to the bathroom even though your bowels were empty?: None of the time How much of the time during the last 2 weeks have you felt angry as a result of your bowel problem?: None of the time Short IBD Questionnaire Score: 7 Higher scores indicate improvement in symptoms and HR-QOL (higher health related quality of life) with less impact from IBD whereas a decrease in score indicates worsening HR-QOL and more impact from IBD (Minimum score = 1, maximum score = 7). Brennen Anderson Index (Crohn's): Modified HBI General well being: slightly below par Abdominal pain: none # Liquid stools per day: 1 Extraintestinal Manifestations Arthralgias (Joint Pain): none Uveitis (Redness of the Eye, Floats, Blurred Vision, Photophobia, Eye Pain, Irregular Pupil): none Eythema Nodosum (tender lumbs usuallly located in the front of the legs below the knee): none Pyoderma Gangrenosum (Leg Ulcers): none Aphthous Ulcers (Mouth Sores) or Stomatitis: none Anal Fissures: none Newly Discovered Fistula: none Abscess: None HBI Total Score: 2 Remission = < 5; Mild disease = 5-7; Moderate disease = 8-15; Severe disease = > 16 REVIEW OF SYSTEMS: See HPI, otherwise ROS unremarkable ALLERGIES: Zoloft [sertraline] Current Medications: Current Outpatient Medications: inFLIXimab (REMICADE) 10 mg/mL injection, Infuse 5 mg/kg into a venous catheter See Admin Instructions. Every 6 weeks, Disp: , Rfl: azaTHIOprine (IMURAN) 50 mg tablet, Take 3 tablets (150 mg total) by mouth in the morning., Disp: 270 tablet, Rfl: 1 citalopram (CeleXA) 20 mg tablet, Take 1.5 tablets (30 mg total) by mouth in the morning. (Patient not taking: Reported on 10/31/2023), Disp: 30 tablet, Rfl: 2 folic acid (FOLVITE) 1 mg tablet, Take 1 tablet (1 mg total) by mouth in the morning., Disp: 90 tablet, Rfl: 2 I reviewed and reconciled this patient's medication list today. The list included in this note is the most up to date list that I can attest to at this time based on the information that the patient has provided me and the electronic medical record. PAST MEDICAL, SOCIAL AND FAMILY HISTORY: Past Medical History: Past Medical History: Diagnosis Date Acute pain of left knee 12/23/2018 Anemia Anxiety Bowel obstruction (CMS-HCC) 10/17/2017 Chronic diarrhea Colon stricture (CMS-HCC) 04/02/2018 Crohn's colitis (CMS-HCC) Crohn's disease (CMS-HCC) Crohn's disease of both small and large intestine with intestinal obstruction (CMS-HCC) 03/03/2018 Current chronic use of systemic steroids 03/03/2018 Depression Diarrhea 10/17/2017 Added automatically from request for surgery [id number] Difficulty sleeping 01/13/2019 Gall stones History of maternal fourth degree perineal laceration, currently 06/21/2017 History of prior with short cervix, currently 06/21/2017 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 Iron deficiency anemia due to chronic blood loss 07/17/2018 Microcytic anemia 07/17/2018 Pain in both feet 12/14/2018 Psoriasis of scalp 12/14/2018 Reactive depression 11/09/2018 Vitamin B 12 deficiency 07/08/2019 Past Surgical History: Past Surgical History: Procedure Laterality Date COLONOSCOPY Left Lateral 10/21/2017 Performed by Sharda Montiel MD at [facility] COLONOSCOPY w/ Bx's & polypectomy N/A 10/08/2021 Performed by Sharda Montiel MD at [facility] EGD N/A 04/02/2018 Performed by Darshana Rae MD at [facility] LAPAROSCOPIC ILEOCECECTOMY, TAKE DOWN OF ILEODUDENAL FISTULA, DRAINAGE OF RETROPERITONEAL ABSCESS, OMENTAL PEDICLE FLAP N/A 04/02/2018 Performed by Jonathan Bautista MD at [facility] SOCIAL HISTORY: Social History Tobacco Use Smoking status: Never Smokeless tobacco: Never Vaping Use Vaping status: Never Used Substance Use Topics Alcohol use: No Drug use: No PHYSICAL EXAM: BP 100/60 Ht 165.1 cm (5' 5 ) Wt 75.8 kg (167 lb) BMI 27.79 kg/m Body mass index is 27.79 kg/m . GEN: alert and oriented x3, NAD HEENT: EOMI, PERRL, oropharynx non-erythematous without exudate, no oral lesions; conjunctiva pink and normal appearing CV: RRR, no murmur, rub, gallop, no edema PULM: no respiratory distress ABD: soft, non-tender, non-distended, +BS; well-healed mid-abdominal scarring w keloids NEURO: no focal deficits appreciated RADIOLOGICAL DATA: No images are attached to the encounter. No results found. DATA: CBC: Lab Results Component Value Date WBC 5.2 08/04/2023 HGB 12.2 08/04/2023 HCT 35.2 08/04/2023 MCV 93 08/04/2023 RDW 13.5 08/04/2023 PLT 198 08/04/2023 CMP: Lab Results Component Value Date K 3.5 11/17/2022 CL 108 11/17/2022 CO2 24 11/17/2022 BUN 13 11/17/2022 GLU 126 (H) 12/26/2022 Iron Studies: Lab Results Component Value Date IRON 46 (L) 08/04/2023 TIBC 273 08/04/2023 FERRITIN 27 08/04/2023 PT/INR: Lab Results Component Value Date INR 1.0 07/02/2019 PROTIME 11.4 07/02/2019 TSH: Lab Results Component Value Date TSH 0.64 11/17/2022 VITAMIN B12: Lab Results Component Value Date VUHOTGUI43 1,378 (H) 08/02/2021 FOLATE: Lab Results Component Value Date FOLATE 18.8 08/02/2021 DIAGNOSTIC STUDIES REVIEWED: As noted in the HPI Labs 08/04/23: CBC unremarkable, iron studies w iron 46, ferritin 27, sat 17%, TIBC nl, TB quantiferon gold neg Labs 03/24/22: CBC w Hgb 11, MCV 87, WBC 2.9, otherwise unremarkable; BMP w K 3.4, otherwise unremarkable Labs 08/02/2021: HAV IgG neg (non-immune), folate nl, vitD 10, B12 nl, ferritin 6, iron low at 42, TIBC 441, sat 10%, CBC w WBC 3.7, otherwise unremarkable Labs 07/17/21: 6MMP 5796 (< 5700), 6-TGN 215 (nl is 235-450); infliximab level 6.6 mcg/mL; no ab testing done given level > 5 mcg/mL (literature suggests levels 6-10mcg/mL are associated w mucosal healing); ESR wnl; c diff neg; stool calprotectin nl Labs 11/22/20: vitD 12.5, ferritin 21, iron 112, sat 32%, TIBC nl; liver panel w alk-phos 29, otherwise unremarkable, CBC unremarkable Labs 08/23/2020: vitD 11.4, B12 nl, ferritin 3, iron 19, TIBC 441, sat 4%, liver panel w alk-phos 28, otherwise unremarkable; BMP unremarkable, CRP nl, ESR nl, CBC w Hgb 8.1, MCV 80, RDW 19.3% Labs 01/12/20: HBsAb + (immune), HBsAg neg, HBV core tot neg, vitD 14, B12 nl, iron studies w ferritin 10, sat 15%, otherwise nl; liver panel w alk-phos 36, otherwise nl; CBC w Hgb 11.4, MCV wnl, WBC 3.6, otherwise unremarkable; TB quantiferon gold neg; 6TG 246 (235-450), 6MMP 2,862 (< 5700) Labs 10/19/19: liver panel w alk phos 35, otherwise unremarkable; CBC w/ WBC 4.2; Hgb 10.1, MCV wnl, otherwise unremarkable Labs 10/07/2019: CBC w Hgb 10.3, MCV wnl, WBC 3.7, platelets wnl Labs 08/05/2019: Stool calprotectin normal; CBC w Hgb 6.7, MCV 71, WBC 4.1, platelets wnl Labs 07/02/2019: B12 low at 177, CRP normal; iron studies sat 3%, elevated TIBC, iron 15; ferritin 3; vitamin-D very low at 8.6; CBC with WBC 4.8, hemoglobin 6.2, MCV 66, platelets normal; ESR normal Labs 01/13/2019: CBC with Hgb 11.5, MCV wnl; otherwise unremarkable; CMP unremarkable; iron studies normal; B12 low at 177, thyroid studies normal Labs 01/22/2018: Humira level 7.4, no antibodies (levels > 4.9 tend to be associated with failure of to anti TNF agents and recommendations are to switch to another therapeutic class) Labs 01/13/2018: Liver panel with T bili 0.2, alk-phos 38, otherwise unremarkable; CBC with hemoglobin 10.3, platelets 494, otherwise unremarkable; week 6 labs on AZA Labs 01/06/2018: CBC with hemoglobin 11.5, platelets 536, otherwise unremarkable; CMP unremarkable, lipase normal; wk 5 labs on AZA Labs 12/11/2017: liver panel unremarkable; CBC w/ Hgb 10.7, RDW elevated at 17.3%; otherwise unremarkable; wk 1 labs on AZA Labs 11/19/2017: CBC with WBC 16.1 platelets 476, otherwise unremarkable; CMP unremarkable Labs 11/14/2017: TB QuantiFERON gold negative Labs 10/22/2017: TB Quantiferon gold indeterminate; TPMT enzyme activity normal Labs 10/18/2017: ESR 21, CRP 12.7; CBC with hemoglobin 10.7, MCV normal, platelets normal Labs 10/17/2017: vitD < 7; HBsAb + (immune); HBsAg neg; HAV ab neg (non-immune); B12 wnl; BMP unremarkable; CBC w/ Hgb 10.7, MCV wnl; TPMT genetics wnl 11/19/17 CTAP w/ IV: redemonstration of inflammatory process surrounding distal small bowel loops centered about the distal ileum. Findings again favor inflammatory bowel disease including Crohn's disease versus focal infectious enteritis. The severity appears less than on the 10/27/2017 CT examination. As above, small bowel loops proximal to this are fluid-filled and contrast-filled and only mildly distended without evidence for high-grade obstruction at this time though certainly patient is at risk for small bowel obstruction given the abnormalities in the terminal ileum. This patient should be followed closely. 10/18/2017 MRE: At least 30 cm of actively inflamed distal small bowel and terminal ileum with narrowing of the lumen to only a few millimeters distal aspect. Associated small bowel obstruction with equalized content and bowel distention. No fistula visualized. Localized free fluid in the deep pelvis and adjacent to the rectum noted without definite abscess formation at this time. 10/17/2017 CT abdomen pelvis with contrast: Extensive inflammatory process in the right lower quadrant adjacent to the distal and terminal ileum with proximal small bowel dilatation likely related to high-grade partial or complete small bowel obstruction. Findings are most likely related to an inflammatory or infectious enteritis including Crohn's disease with possible small bowel fistulas adjacent to the terminal ileum. Clinical correlation is recommended to exclude an infectious enteritis. Small volume abdominal and pelvic ascites. Fluid-filled appendix is likely reactive to the aforementioned process. Bilateral sacroiliitis. 10/16/2017 abdominal ultrasound: Tiny stones and/or sludge. No definite biliary tree dilatation. This concern regarding acute obstruction might consider HIDA scan. Colonoscopy 10/08/2021, f/u of chronic Crohn's, assess response to treatment: TI nl s/p bx's. Unremarkable appearing colonic mucosa throughout s/p random bx's. Path: All bx's benign and unremarkable. Incidental hyperplastic polyp noted in the sigmoid colon bx's. EGD 04/02/2018, intraoperative: Unremarkable esophagus. Normal duodenal bulb. Local mucosal changes characterized by fistulous tract in the 2nd portion of the duodenum (as it correlated with intraoperative palpation of the small bowel in this area). No significant surrounding inflammation nor cobblestoning of the duodenal mucosa. Colonoscopy 10/21/17: Findings: normal perianal exam; severe stricture noted at the ICV which precluded intubation of the TI; multiple bx's taken. Tortuous colon throughout w/ sig looping in the sigmoid. Mult random bx's taken throughout the colon. - Her clinical picture is strongly supportive of Crohn's disease. Will start her on IV steroids in an effort to try and induce remission and alleviate any component of her TI stricture that may be inflammatory. There remains a high chance that this fibrostenotic and she may end up requiring surgery nevertheless sometime in the next 6-12 months. Will obtain serologies in preparation for likely biologic to be started as an outpatient as well. Path: focal active colitis at the ICV and in the R colon; normal L colon bx's. Recs: Ok to continue antibiotics for her Crohn's flare, but suggest switching to Cipro and Flagyl. Needs MAC for any future endoscopies. Op note 04/02/18 - lap converted to open ileocecetomy, RP abscess drainage, duodeno-ileal fistula repair: Crohn's stricture at the level of the terminal ileum. Chronic abscess in the retroperitoneum. Fistula between the terminal ileum and the 2nd portion of the duodenum. Path: Active chronic enteritis with transmural inflammation, fissures, and fistula formation c/w Crohn's involving the TI associated with mesenteric and periappendiceal abscesses. Surgical margins appear uninvolved. Colon does not appear involved. Appendix shows periappendiceal abscess with fibrosis. Skip lesions noted as well as pseudopolyps in the cecum. Several fistulous tracts were noted. Summary of course Initial OV 11/25/17: She was seen in the hospital in early 10/2017 when she presented 7 weeks post- w/ intermittent abd pain, daily, lasting a few minutes at a time, with fevers and diarrhea. Imaging showed evidence of an SBO and suspicion for Crohn's with significant inflammation and stenosis of the distal ileum. No prior endoscopies at that time. No FHx IBD. MRE 10/18/17 showed a TI stricture with fecalization of small bowel contents proximal to that point. Colonoscopy 10/21/2017 showed a severe stricture at the TI that precluded intubation of the TI with the endoscope though biopsies were taken from the distal most aspect of the ileum. She was started IV steroids at that time and transition to an oral regimen upon discharge. She was also treated with Cipro and Flagyl during her admission. Additional labs were obtained in preparation to starting an immunomodulator and a biologic. She did not tolerate tapering her prednisone and there was concern that her stricture was fibrostenotic more than inflammatory. TB quantiferon gold was indeterminate, but in the setting of high-dose prednisone. This was repeated 11/14/2017 and found to be negative. - Today we had an extensive discussion regarding the natural history of Crohn's disease and the various options for treatment. Recs: Together, we agreed with starting immunomodulatory and biologic treatment with a goal of relieving her TI stricture with the hopes that there is enough of an inflammatory component to respond to treatment and avoid the need for surgery. Start Humira + AZA 150mg/d (btw 2-3mg/kg) + folic acid 1mg/d. - OV 02/20/18: She remains on prednisone 25mg/d and is on Humira q2 wks and AZA 150mg/d without improvement of her symptoms of R-sided abdominal discomfort and pain and borborygmi. Having 2-3 BMs/d that are thin in caliber. No bleeding. Recs: I am concerned her strictures fibrostenotic and she is not responding to treatment. Will urgently referred to Dr. Bautista. Continue current medications. 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 She was cleared to resume biologics about a month after her surgery and was started on Entyvio in 05/2018. She continued this through 11/2018 as well as azathioprine 150mg/d, but for self-d/c'd this to see if it was causing her depression (it wasn't, her contraceptive injectable was apparently). She was unable continue receiving her Entyvio due to limitations from missing work. She was lost to follow-up has not been seen here since 02/2018. -- OV 07/02/19: She was recently advised to resume her AZA and to have therapeutic drug monitoring labs done (not done). She follows with her PCPs office frequently for depression. Most recent note indicates some menorrhagia and that a hysterectomy has been advised by her boxing inspector, but that she was not ready to proceed. 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 She noted she was going to take a 2 week leave and file for unemployment. RECS: cont Entyvio, but needs re-induction. cont AZA 150 mg /d. Proceed w inflammatory markers and updating CBC and iron studies. -- 09/2019: Insurance denied Entyvio w/o 3 month trial of Inflectra; appeal denied 10/2019 (needs to fail Humira and Inflectra; she's failed Humira only) -- 12/2019: Inflectra approved; did not start due to feeling well overall and considering . She was reassured that uncontrolled Crohn's poses a higher risk to her than treatment w biologics. Advised to proceed w Inflectra and cont AZA. -- 01/2020: AZA levels good; cont current dose (150mg/d); s/p Infectra x 1 dose; had to stop after this /2 cost with deductible resetting after 02/2020. -- 02/2020 OV: Currently on AZA 150mg/d. She had stopped her Inflectra infusions due to insurance and cost. She will have new insurance as of 03/13/2020. She is doing well overall w/o abd pain and having 1-2 soft brown stools/d w/o blood. Good appetite. Has received periodic IV iron infusions due to ACE 2/2 menorrhagia. RECS: To resume infliximab BUBBA. Update inflammatory markers and nutritional markers. Cont AZA 150mg/d. -- 03/2020 - 08/2020: Continues to have insurance issues preventing her from cont tx. -- OV 08/30/20: She was recently in the ER for abnormal labs showing anemia. She was given IV iron and discharged. She has been advised to reestablish w the blood mgmt program. Recent labs showed significant vitD deficiency and iron deficiency and high-dose vitD was prescribed. Unfortunately, she remains off of treatment for her Crohn's due to insurance issues, but paperwork is currently in place for a infliximab biosimilar. She remains on AZA 150mg/d + folic acid 1mg/d. re: her Crohn's, she's having BMs q1-2d w/o straining or bleeding, BSS 5-6. No abd pain. Recent ESR, CRP wnl. Stool calprotectin pending. She notes losing about 20 lbs in the last 1yr or so, unintentionally. SIBDQ is 6, HBI is 2 c/w clinical remission. Inflectra was started, pending insurance. Repeat colonoscopy recommended 6 months after starting Inflectra. Recommend patient follow up with hematology. -- OV 11/23/20: Today, patient reports she had 3 infectra infusions. She has 1 soft formed stool daily without blood or straining. She continues with the Imuran 3 tabs daily, oral iron supplementation, vitamin-D 2000 daily, folic acid, and vitamin B12. Overall, she reports she is feeling better. No abdominal pain, nausea, vomiting, joint pain, visual changes.She will continue with her Imuran 150 mg daily. Continue with Imuran 150 mg daily. Her vitamin D level still [place]. [place] [address] [place] q.week x8 and then back to her 2000 units daily thereafter. -- 07/17/21 Labs show her Crohn's appears to be under control on her current medications (no significant inflammation in the stool), but the dose of her infliximab could be increased to 10mg/kg. Recommend increasing IFX dose to 10mg/kg q8wks or could keep 5mg/kg, but go to q6 wks. cont current dose of AZA. can add bentyl prn; Rx in; also imodium otc prn. -- 08/02/21 OV: She reports ongoing R-sided abdominal discomfort, worse w laying down. This is chronic for her, since her surgery in 2019. Does not require pain management. Worse with bowel movement, denies improvement after bowel movement. She reports feeling empty in right sided abdomen after bowel movement. She had called recently complaining of worsening diarrhea and stool testing was unremarkable. This has since resolved, but was occurring 2-3 times/d for about 2 and half weeks. Of note, was taking PO iron at time, but has since stopped it. Currently having 1 BM q1-2d. Denies pain and bleeding. She remains on AZA 150 mg daily + IFX q6wks (last dose 07/26/21). SIBDQ = 6, HBI = 2, c/w clinical remission. As of 11/2020 CBC including Hgb and iron studies wnl. RECS: cont current regimen. Resume folic acid. Due for therapeutic drug monitoring labs. MRE to assess the anastomosis for current stricture. Update nutritional markers. Proceed w colonoscopy to assess status of mucosal disease. - 04/2022: Colonoscopy 09/2021 was unremarkable showing evidence of remission. She was advised to cont her current regimen and then no need for MRE. Labs after lost at OV showed lack of immunity to HAV and vitD deficiency as well as iron deficiency. She was advised to proceed w HAV vaccination, start high-dose vitD replacement and then start 5000IU/d, and to take a MVI containing iron. Her last infusion of IFX 04/19/2022, which was rescheduled from to 04/19/22 due to not feeling well and testing + for COVID. She did not get her HAV vaccine yet due to forgetting. She stopped her AZA while she had COVID and recently resumed it. She is vitD 5000IU/d. She is not taking any iron. Currently having 2 BMs/d, BSS 4. Denies pain and bleeding. She remains on AZA 150 mg daily + IFX q6wks (last dose 04/19/22). SIBDQ = 7, HBI = 1, c/w clinical remission. She is not taking any iron. Recent labs 03/2022 show recurrent iron deficiency and mild anemia. RECS: Cont AZA 150mg/d and IFX 5mg/kg q6wks and folic acid. Cont monitoring labs every 3-6 months an annual thiopurine metabolite levels. Cont vitD 5000IU/d. Start PO iron and vitamin-C daily due to forgetfulness. - 10/2022: Her last IFX was 10/25/2022. She remains on AZA 150mg/d and folic acid 1mg/d. She is also on a MVI, PO iron + vitC daily, vitD 5000IU/d, B12 1mg/d. She's doing well overall, having 1 BM/d, BSS 4-5. No bleeding and no abd pain. SIBDQ = 7, HBI = 0 c/w clnical remission. She doesn't believe she got her HAV vaccination. Proceed w HAV vaccination. Will update nutritional markers. Cont infliximab 5mg/kg q6 wks and AZA 150mg/d + folic acid. Patient Care Team: Hilary Aviles APRN-LUIGI as PCP - General (Family Medicine) Jonathan Bautista MD as Referring Physician (General Surgery) Sharda Montiel MD as Consulting Physician (Gastroenterology) Mj Pizarro MD as Consulting Physician (Hematology) ASSESSMENT AND PLAN: 32F h/o gallstones and complicated ileocolonic Crohn's disease here for f/u. 1. Crohn's disease: see above for summary of her complicated course. She has a h/o poor f/u and non-compliance. She has a h/o fibrostenotic disease. Since her surgery in 2018, she has chronic R-sided intermittent abd pain, worse w lying on that side and w BM's (no sig relief w defecation). Disease location: ileocolonic c/b severe stricture at ICV on initial colonoscopy 2017 Date of dx: 10/2017 h/o surgery: 04/02/18, ileocectomy, RP abscess drainage, duodeno-fistula repair Medications tried: steroids, AZA 11/2017 - present; Humira (failed); Entyvio 05/2018 - 11/2018 (gap due to lack of f/u related to issues w/ missing work; then insurance would not approve resuming w/o trial of IFX). Infliximab 5mg/kg 09/2020 - present (inc to q6 wks dosing based on sx and trough levels 07/2021) EIM (uveitis/iritis, arthralgias, skin lesions): none Flares characterized by: significant diarrhea Last IBD flowsheet scores: SIBDQ = 7 and HBI = 1 as of 04/2022, c/w clinical remission Remission/deep remission: achieved as of last colonoscopy 09/2021 Current regimen: AZA 150mg/d, IFX 5mg/kg q6 wks, folic acid 1mg/d --> Since her last visit she has had multiple no shows for infusions and an OV (06/17/23, 06/10/23, 04/14/23, and 06/17/22, 11/10/20 prior to this). Her last infusion of IFX was 09/15/2023. She never had the labs that were ordered after her last OV done. She remains on IFX 5mg/kg q6wks + AZA 150mg/d and folic acid 1mg/d. She is on vitD 400IU/d and B12 1000mcg/d. She is no longer on PO iron or an MVI. Recent labs show normal CBC and iron levels, but ongoing mild iron deficiency. She has not received her HAV vaccine yet. SIBDQ = 7, HBI = 2 c/w clnical remission. -- cont current regimen; due for infusion today -- will update nutritional and inflammatory markers today and q6mo; due now -- needs ongoing therapeutic drug monitoring labs while on AZA, q6mo (CBC, liver panel); due now -- annual thiopurine metabolite level while on AZA; due now Risks of IM/biologics We spoke today about the risks, benefits and alternatives to all the Crohn's medications such as azathioprine, 6-MP and TNF inhibitors including but not limited to the risks of Infection, lymphoma, LFT abnormalities, bone marrow suppression and liver failure and demyelination syndromes, and psoriasis, chronic immunosuppression, leukopena, pancreatitis, an increased risk of malignancy including post-transplant lymphoma, hepatosplenic T-cell lymphoma (HSTCL; higher risk when immunomodulator combined with TNF-a stephanie), and skin cancer in patients with inflammatory bowel disease. We also discussed the roles of alternative biologic agents such as the selective integrin stephanie, vedolizumab (Entyvio) and the selective IL12/23 stephanie, ustekinumab (Stelara), in addition to newer agents such as the synthetic oral small molecule Janus kinase (RANGEL) inhibitor, tofacitinib (Xeljanz). she agrees to proceed as above. Preventative Health Maintenance: -- Vaccines and pre-biologic testing: TB QuantiFERON gold neg in 11/2017; TPMT enzyme activity and genetics wnl on labs 10/2017; HBV immune per labs 10/2017, but HAV non-immune; advised to proceed w HAV vaccination; will reassess titers upon completion of her series -- CRC prevention: discussed importance of beginning screening for CRC every 1-3 years for patients with disease involving 1/3 of the colon or more (beginning 8yrs after dx) to initiate surveillance for colorectal neoplasia; this same approach is reasonable in those with isolated proctitis or disease involving < 1/3 of the colon in order to reassess disease extent given the colitis may progress over time; due to begin in 2025 -- Skin cancer prevention: discussed increased risk and strongly recommended annual f/u with a structural steel painter and regular use of skin protection -- Cervical cancer prevention: discussed importance of annual pap smears -- VitD: will aim to maintain > 32ng/mL given evidence of multiple benefits of vitamin-D supplementation including bone health, anti-cancer properties, as well as implications for both innate and adaptive immunity; on 400IU/d; will update levels -- DEXA: no strong risk factors for bone disease -- Tobacco cessation: n/a, non-smoker -- Nutrition: known chronic ACE; see below; will monitor levels periodically 2. Chronic iron deficiency anemia: she has a longstanding h/o normocytic anemia w baseline Hgb ranging from 9-11 w new microcytosis since 06/2019 attributed to menorrhagia and malabsorption from her Crohn's; she f/u hem/onc and is s/p IV iron, but was then lost to f/u after 2019 and has not seen them since. She is on PO iron + vitC daily due to forgetfulness w MWF dosing. --> As above in #1. -- will monitor periodically; recommend resuming MVI for women that contains iron OV in 6 mo w me Thank you for allowing me to participate in this pleasant patient s care. Total time spent was 31 minutes: Preparing to see the patient (e.g., review of tests) Obtaining and/or reviewing separately obtained history Performing a medically appropriate examination and/or evaluation Counseling and educating the patient/family/caregiver Ordering medications, tests, or procedures Referring and communicating with other health child care worker (not separately reported) Documenting clinical information in the electronic or other health record Independently interpreting results (not separately reported) and communicating results to the patient/family/caregiver This note was created with the assistance of a speech-recognition program. While intending to generate a timely document that accurately reflects the content of the visit, no guarantee can be provided that every grammatical or spelling mistake has been or will be identified or corrected. Thank you for your understanding. Camila Montiel MD, [place] [address] PH: [phone] Juan Luis was seen today for follow-up. Diagnoses and all orders for this visit: Therapeutic drug monitoring - Thiopurine Metabs; Future - Basic Metabolic Panel; Future - Liver panel; Future - CBC without diff; Future Crohn's disease of both small and large intestine with other complication (CMS-HCC) - Calprotectin, F; Future - C-reactive protein; Future - Erythrocyte Sedimentation Rate (ESR); Future - Vitamin B12; Future - Vitamin D 25 hydroxy; Future - Basic Metabolic Panel; Future - Liver panel; Future Other orders - azaTHIOprine (IMURAN) 50 mg tablet; Take 3 tablets (150 mg total) by mouth in the morning. - folic acid (FOLVITE) 1 mg tablet; Take 1 tablet (1 mg total) by mouth in the morning. documented in this encounter [facility] 10-31-2023 Instructions Sharda Montiel MD - 10/31/2023 9:00 AM EDT Resume an multivitamin for women that contains iron Labs today and stool testing today I recommend hepatitis A vaccine with your PCP, the health department, or any pharmacy; this is typically a series of 2 injections -- please save documentation of these to update your chart in the future You must be seen in the office every 6 months. You must have labs done every 6 months for monitoring. Due to multiple no shows, you at risk of violating the office's no-show policy. This is a final warning. Any further no-shows will result in discharge from the practice and you will need to seek care for your Crohn's disease at another practice. Preventative Health Maintenance for Crohn's and ulcerative colitis -- Skin cancer prevention: I recommend annual follow up with a structural steel painter and regular use of skin protection given the increased risk of skin cancer, especially in patients on immunomodulator (Imuran / azathioprine / 6MP) or biologic medications (Remicade, Humira, Enyvio) -- Cervical cancer prevention: I recommend annual follow up with your historical site guide doctor with annual pap smears -- Tobacco use: do not smoke or if you do, please try to quit as this will only worsen your disease status and make it more difficult to control -- Sleep hygiene: sleep is very important for control of your disease; if you have having trouble, please discuss with your family doctor -- Nutrition: it is important you are eating a health and balanced diet; if you have having trouble with access to nutritious food, or if you would be interested in meeting with a ship self defense system mk1 operator please let me or your family doctor know -- Vaccinations: please talk to your PCP or family doctor to ensure you are up to date on all age-appropriate vaccinations If you take azathioprine (Imuran), take folic acid supplement (1mg daily) to decrease side effects, and do not take Imuran with milk or juice as the milk or juice may render the medication ineffective. Link to useful pdf document on the role of diet in IBD: [email or web address].o rg/client_ed.[email or web address] [email or web address] History of Present illness Narrative Subjective CC: depression/anxiety Patient ID: Juan Luis Storey is a 32 y.o. female. Anxiety Symptoms include nervous/anxious behavior. Patient reports no suicidal ideas. Juan Luis is here following up for anxiety and depression. She has been dealing with her mother's illness for the past month. Her mother had a severe stroke and the family are not in agreement regarding her care. She is currently at [facility]. She is in a vegetative state. Juan Luis has returned to work. States she is able to get through the day most days. She feels she is able to pull herself together most times. If not she walks away. She finds herself crying a lot. She denies homicidal or suicidal thoughts. The following portions of the patient's history were reviewed and updated as appropriate: allergies, current medications, past family history, past medical history, past social history, past surgical history, problem list, and medication reconciliation was completed including current medication and post discharge medication. Review of Systems Constitutional: Positive for fatigue. HENT: Negative. Eyes: Negative. Respiratory: Negative. Cardiovascular: Negative. Gastrointestinal: Negative. Musculoskeletal: Negative. Skin: Negative. Neurological: Negative. Hematological: Negative. Psychiatric/Behavioral: Positive for sleep disturbance. Negative for self-injury and suicidal ideas. The patient is nervous/anxious. Objective Physical Exam Vitals and nursing note reviewed. Constitutional: Appearance: Normal appearance. Comments: BMI 27.06 HENT: Head: Normocephalic and atraumatic. Right Ear: External ear normal. Left Ear: External ear normal. Eyes: Conjunctiva/sclera: Conjunctivae normal. Cardiovascular: Rate and Rhythm: Normal rate and regular rhythm. Pulses: Normal pulses. Heart sounds: Normal heart sounds. Pulmonary: Effort: Pulmonary effort is normal. Breath sounds: Normal breath sounds. Musculoskeletal: General: Normal range of motion. Cervical back: Normal range of motion and neck supple. Skin: General: Skin is warm and dry. Neurological: Mental Status: She is alert and oriented to person, place, and time. Psychiatric: Attention and Perception: Attention normal. Mood and Affect: Affect is tearful. Speech: Speech is delayed. Behavior: Behavior normal. Behavior is cooperative. Thought Content: Thought content does not include homicidal or suicidal ideation. Thought content does not include homicidal or suicidal plan. Cognition and Memory: Cognition and memory normal. Assessment/Plan Will increase Celexa to 30 mg daily If noticeable fatigue, from celexa to take before bed Follows with GI for Crohns disease receives Remicade every 6 weeks Last infusion 09/15/2023 Follow up in 2 months, sooner if needed Ilesha was seen today for anxiety. Diagnoses and all orders for this visit: Current moderate episode of major depressive disorder without prior episode ([facility]) - citalopram (CeleXA) 20 mg tablet; Take 1.5 tablets (30 mg total) by mouth in the morning. Crohn's disease of both small and large intestine with intestinal obstruction ([facility]) TERA Church 09/17/23 1443 documented in this encounter [employer] 09-15-2023 Miscellaneous Notes Refill infusion orders received; approved for now. Must make 10/31/23 OV or can no longer receive infusions here until she is seen. Tried to call patient, busy signal. Sent MyChart message. Patient called. Updated. She verbalized understanding Thank You documented in this encounter [facility] 09-15-2023 Telephone encounter Note Refill infusion orders received; approved for now. Must make 10/31/23 OV or can no longer receive infusions here until she is seen. [facility] 09-15-2023 Telephone encounter Note Tried to call patient, busy signal. Sent MyChart message. [facility] 09-15-2023 Telephone encounter Note Patient called. Updated. She verbalized understanding Thank You [facility] 09-15-2023 History of Present illness Narrative IV Infusion start time: 10:30 am Patient here for Inflectra infusion. Patient denies any recent infections or on antibiotics, open wounds, recent/future surgery, vaccinations or insurance changes. IV started with 22g needle to right AC by JAD Arroyo x1 attempt. Patient tolerated well. Inflectra x 4 vials Lot# [id number] Exp- [id number] Time out performed prior to medication administration. Name, , medication(s) verified 12:10 pm patient infusion complete. IV discontinued, catheter intact, vitals WNL. Patient tolerated infusion well documented in this encounter [facility] 09-03-2023 Miscellaneous Notes Patient presented to front office secretary window and paid for FMLA today. FMLA faxed. documented in this encounter [facility] 09-03-2023 Telephone encounter Note Patient presented to front office secretary window and paid for FMLA today. FMLA faxed. [facility] 09-03-2023 History of Present illness Narrative Video Visit via Real-time Synchronous Audiovisual Provider Location: [facility] [address] [place] [phone] Patient Location: Patient's home Video Visit Consent Statement: I discussed risks, benefits, and alternatives of a real-time synchronous audiovisual consultation with the patient (and any accompanying persons) including the risks that the patient's personal health details and medical records will be discussed over real-time, synchronous, interactive video/audio/telecommunication technology, the visit will not be recorded without the express consent of both the provider and the patient, and that there are some limitations compared to [id number] evaluations. The patient consented to the presence of additional virtual and/or in-person participants. We elected to proceed. Juan Luis presents through phone visit to discuss FMLA paperwork. Juan Luis was out of work from 08/19/2023-09/02/2023. She relates returning to work last night. She took this time due to her mother's hospitalization, which has a very poor prognosis. She is very tearful and states when went to work, she would just start crying, when asked about her mother. States is having difficulty sleeping, although is very fatigued. She was seen in this office on August 20, 2023, and started on Celexa. She has an office visit scheduled for 09/17/2023. She denies homicidal or suicidal thoughts. Appetite is decreased. States initially did not eat for 72 hours, when heard about her mother's condition. Has good family support. Timed visit of 14 minutes DX: Depression Continue Celexa FMLA/Disability paperwork completed Keep follow up appt on 09/17/2023 for depression TERA Church 09/03/23 1308 documented in this encounter [facility] 08-20-2023 History of Present illness Narrative Subjective CC: depression and anxiety Patient ID: Juan Luis Storey is a 32 y.o. female. HPI Juan Luis presents for depression and anxiety. She has a history of depression. Although her mother who is 51 is dying. She is currently in the hospital with a brain bleed and is on a ventilator. She is not expected to survive. She has one more week on the ventilator before she will be transferred out. Juan Luis is very tearful. She denies homicidal or suicidal thoughts. Her appetite is poor, along with poor sleep. Relates her family is supportive and she can talk with them. States the family has been at the hospital most of the time, when able. The following portions of the patient's history were reviewed and updated as appropriate: allergies, current medications, past family history, past medical history, past social history, past surgical history, problem list, and medication reconciliation was completed including current medication and post discharge medication. Review of Systems Constitutional: Positive for appetite change. HENT: Negative. Eyes: Negative. Respiratory: Negative. Cardiovascular: Negative. Gastrointestinal: Negative. Musculoskeletal: Negative. Skin: Negative. Neurological: Negative. Hematological: Negative. Psychiatric/Behavioral: Positive for sleep disturbance. The patient is nervous/anxious. Objective Physical Exam Vitals and nursing note reviewed. Constitutional: Appearance: Normal appearance. Comments: BMI 26.36 HENT: Head: Normocephalic and atraumatic. Right Ear: External ear normal. Left Ear: External ear normal. Mouth/Throat: Pharynx: Oropharynx is clear. Eyes: Conjunctiva/sclera: Conjunctivae normal. Cardiovascular: Rate and Rhythm: Normal rate and regular rhythm. Pulses: Normal pulses. Heart sounds: Normal heart sounds. Pulmonary: Effort: Pulmonary effort is normal. Breath sounds: Normal breath sounds. Musculoskeletal: General: Normal range of motion. Cervical back: Normal range of motion and neck supple. No tenderness. Lymphadenopathy: Cervical: No cervical adenopathy. Skin: General: Skin is warm and dry. Neurological: Mental Status: She is alert and oriented to person, place, and time. Psychiatric: Behavior: Behavior normal. Assessment/Plan Will provide Juan Luis with work note, and instructed to bring in FMLA paperwork to be completed. Will start Celexa 20 mg daily. Instructed to follow up in 4-6 weeks for re-assessment of depression.anxiety. 1. Start Celexa 20 mg daily 2. Work note provided 3. Needs to bring in FMLA to be completed Juan Luis was seen today for mental health problem. Diagnoses and all orders for this visit: Anxiety - citalopram (CeleXA) 20 mg tablet; Take 1 tablet (20 mg total) by mouth in the morning. TERA Church 08/20/23 1530 documented in this encounter [facility] 08-04-2023 History of Present illness Narrative IV Infusion start time: 1318. Patient here for Inflectra infusion. Patient denies any recent infections or on antibiotics, open wounds, recent/future surgery, vaccinations or insurance changes. IV started with 22g needle to left AC by JAD Arroyo x1 attempt. Patient tolerated well. Inflectra x 4 vials Lot# [id number] Exp- [id number] Time out performed prior to medication administration. Name, , medication(s) verified Time out performed @ 1345 with Raf Delatorre RN. 400 mg of Inflectra to be mixed and administered to patient per current treatment plan orders. 1448 patient infusion complete. IV discontinued, catheter intact, vitals WNL. Patient tolerated infusion well Patient due for their Tuberculosis lab draw; order printed and given to patient. Instructed patient to have drawn; patient verbalized understanding of info given. documented in this encounter [facility] 06-18-2023 Miscellaneous Notes Patient has missed the following appointments: 06/17/23 06/10/23 04/14/23 06/17/22 11/10/20 See other note for follow up documented in this encounter [facility] 06-18-2023 Telephone encounter Note Patient has missed the following appointments: 06/17/23 06/10/23 04/14/23 06/17/22 11/10/20 [facility] 06-18-2023 Telephone encounter Note See other note for follow up [facility] 06-10-2023 Miscellaneous Notes SANIYA Cheatham and Dr. [...] 06/10/23). No show policy letter sent via [employer] and certified mail. documented in this encounter [facility] 06-10-2023 Telephone encounter Note SANIYA Cheatham and Dr. Montiel, Patient was scheduled today for her Inflectra infusion; was a NO SHOW. She also no showed 04/14/23 Call placed to patient with no answer. Message left for patient to call office back in regards to rescheduling her infusion. [facility] 06-10-2023 Telephone encounter Note Reviewing the chart it appears she has had multiple no shows even prior to this. Please send no-show / late cancellation fee notice and remind her of the no-show policy and that we are tracking this information. If she no-shows again, she may be discharged from the practice per office policy. Thank you. [facility] 06-10-2023 Telephone encounter Note Patient called and rescheduled 06/18/23 [facility] 06-10-2023 Telephone encounter Note Chaparrita, Patient NO SHOWED for her OV yesterday and did not come to her rescheduled infusion today (she NO SHOWED 06/10/23). [facility] 06-10-2023 Telephone encounter Note No show policy letter sent via [employer] and certified mail. [facility] 04-21-2023 Miscellaneous Notes Due for OV There [...] at 10:30 am documented in this encounter [facility] 04-21-2023 Telephone encounter Note Due for OV [facility] 04-21-2023 Telephone encounter Note There is nothing available for a recheck OV , can we use a new patient slot? [facility] 04-21-2023 Telephone encounter Note Yes that's ok [facility] 04-21-2023 Telephone encounter Note Left message for patient to call and schedule. [facility] 04-21-2023 Telephone encounter Note Message left for patient to call back. [facility] 04-21-2023 Telephone encounter Note Patient is scheduled with Meaghan on June 16 at 11:15 am. Infusion is scheduled on June 09 at 10:30 am [facility] 04-21-2023 History of Present illness Narrative 1020 am Patient here for Inflectra infusion. Patient denies any recent infections, open wounds, recent/future surgery, or insurance changes . IV started with 22g needle to right hand by raf street x 1 attempt. Patient tolerated well. Inflectra x 4 vials Lot #[id number] Exp date 12/11/2027 Time out performed with Raf Delatorre RN. 400 mg of Inflectra to be mixed and administered to patient per current treatment plan orders. 1305 patient infusion complete. IV discontinued, catheter intact, vitals WNL. Patient tolerated infusion well documented in this encounter [facility] 04-14-2023 Miscellaneous Notes Patient missed the visit. RN called patient and RN rescheduled patient for 04/21/2023. documented in this encounter [facility] 04-14-2023 Telephone encounter Note Patient missed the visit. RN called patient and RN rescheduled patient for 04/21/2023. [facility] 03-31-2023 Miscellaneous Notes RN was told that patient is calling regarding her insurance. The phone call was then transferred back to the infusion room. Patient states she lost her secondary insurance and wanted to know to what the amount she will be responsible for. RN informed patient to call her insurance company to find out that information. documented in this encounter [facility] 03-31-2023 Telephone encounter Note RN was told that patient is calling regarding her insurance. The phone call was then transferred back to the infusion room. Patient states she lost her secondary insurance and wanted to know to what the amount she will be responsible for. RN informed patient to call her insurance company to find out that information. [facility] 02-20-2023 History of Present illness Narrative Images from the original note were not included. [address] [place] [phone] Patient: Juan Luis Storey Date of : [...] morning. LYNDSEY ANDERS MD Family Medicine Physician [facility] 02/20/23 This note was completed with voice recognition software. The document was reviewed for errors however some may still be present. Please do not hesitate to contact/Epic ms the author to verify any questions/concerns. documented in this encounter [facility] 02-17-2023 History of Present illness Narrative 1145 Patient here for Inflectra infusion. Patient denies any recent infections, open wounds, recent/future surgery, or insurance changes . Site cleansed with alcohol. IV started with 22g needle by Yaquelin Barba RN in right hand. Patient tolerated well. Lot # [id number] Exp 07/11/27 1422 patient infusion complete. IV discontinued at 1422. Patient tolerated infusion well. documented in this encounter [facility] 02-06-2023 History of Present illness Narrative Patient [...] in stable condition. documented in this encounter [facility] Evaluation note Diagnosis Missed menses , unspecified gestational age Encounter for supervision of normal first in first trimester headache in first trimester documented in this encounter [facility]* Diagnosis Therapeutic drug monitoring- Primary Encounter for therapeutic drug monitoring [facility] Diagnosis Second trimester state, incidental 15 weeks gestation of H/O oligohydramnios in prior , currently documented in this encounter [facility] note* Diagnosis Crohn's disease of both small and large intestine with intestinal obstruction (CMS-HCC)- Primary documented [facility] this encounter [facility]* Diagnosis Second trimester state, incidental 19 weeks gestation of Vaginal discharge Leukorrhea, not specified as infective STD exposure Screening, , for anatomic survey Encounter for anatomic survey documented in this encounter [facility]* Diagnosis 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 deficiency anemia, unspecified Iron malabsorption Other specified intestinal malabsorption documented in this encounter [facility]* Diagnosis Crohn's disease of both small and large intestine with intestinal obstruction (CMS-HCC)- Primary documented in this encounter [facility]* Diagnosis Crohn's disease of both small and large intestine with intestinal obstruction (CMS-HCC)- Primary documented in this encounter [facility]* Diagnosis Reactive airway disease with acute exacerbation, unspecified asthma severity, unspecified whether persistent- Primary Shortness of breath COVID-19 Sinusitis, unspecified chronicity, unspecified location documented in this encounter [facility]* Diagnosis Crohn's disease of both small and large intestine with intestinal obstruction (CMS-HCC)- [facility] Diagnosis Anxiety- Primary Anxiety state, unspecified documented in this encounter [facility]* Diagnosis Crohn's disease of both small and large intestine with intestinal obstruction (CMS-HCC)- Primary documented in this encounter [facility]* Diagnosis Reactive depression- Primary documented in this encounter [facility]* Diagnosis Crohn's disease of both small and large intestine with intestinal obstruction (CMS-HCC)- Primary documented in this encounter [facility]* Diagnosis Current moderate episode of major depressive disorder without prior episode (CMS-HCC)- Primary Crohn's disease of both small and large intestine with intestinal obstruction (CMS-HCC) documented in this encounter [facility]* Diagnosis Therapeutic drug monitoring- Primary Encounter for therapeutic drug monitoring Crohn's disease of both small and large intestine with other complication (CMS-HCC) documented in this encounter [facility]* Diagnosis Crohn's disease of both small and large intestine with intestinal obstruction (CMS-HCC)- Primary documented in this encounter [facility]* Diagnosis Iron deficiency- Primary Disorders [...] deficiency anemia, unspecified documented in this encounter [facility]* Diagnosis Crohn's disease of both small and large intestine with intestinal obstruction (CMS-HCC)- Primary documented in this encounter [facility]* Diagnosis 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 Other specified intestinal malabsorption Iron deficiency anemia, unspecified documented in this encounter [facility]* Diagnosis Diabetes mellitus screening Screening for diabetes mellitus Second trimester state, incidental 23 weeks gestation of documented in this encounter [facility]Not on filedocumented in this [facility] SystemInstructionsNot on filedocumented in this encounterProMedica Health SystemInstructionsNot on filedocumented in this encounterPro[facility] SystemInstructionsNot on filedocumented in this encounterProMedica Health System InstructionsNot on filedocumented in this encounterProMedica Health System InstructionsNot on filedocumented in this encounterProMedica Health System InstructionsNot on filedocumented in this encounterProMedica Health System InstructionsNot on filedocumented in this encounterProMedica Health System Instructions* Attachments The following attachments cannot be sent through Care Everywhere. * Anxiety Discharge Instructions, Adult (Czech) documented in this encounterProMercy Memorial Hospitalca Health SystemInstructionsNot on file documented in this encounterProMercy Memorial Hospitalca Health SystemInstructionsNot on file documented in this encounterProMercy Memorial Hospitalca Health SystemInstructionsNot on file documented in this encounterProMercy Memorial Hospitalca Health SystemInstructions* Attachments The following attachments cannot be sent through Care Everywhere. * Depression (Czech) documented in this encounterProMercy Memorial Hospitalca Health SystemInstructionsNot on file documented in this encounterProMercy Memorial Hospitalca Health SystemInstructionsNot on file documented in this encounterProMercy Memorial Hospitalca Health System Summary Purpose Family History No Family History Records FoundNo Family History Records FoundNo Family History Records FoundNo Family History Records FoundNo Family History Records FoundNo Family History Records Found Advance Directives No Advanced Directives Records Found Date Activated Date Inactivated Comments 07/03/2019 3:39 PM 07/03/2019 7:07 PM Date Activated Date Inactivated Comments 04/02/2018 11:45 AM 04/10/2018 4:06 PM Date Activated Date Inactivated Comments 10/17/2017 8:36 PM 10/22/2017 7:23 PM Latest Code Status on File Code Status Date Activated Date Inactivated Comments Full Code 07/03/2019 3:39 PM 07/03/2019 7:07 PM Code Status History Code Status Date Activated Date Inactivated Comments Full Code 04/02/2018 11:45 AM 04/10/2018 4:06 PM Full Code 10/17/2017 8:36 PM 10/22/2017 7:23 PM Additional Source Comments INFORMATION SOURCE (unrecogn ized section and content) DATE CREATED AUTHOR 08/05/2017 [facility] DATE CREATED AUTHOR AUTHOR'S ORGANIZ ATION 06/26/2022 [facility] DATE CREATED AUTHOR AUTHOR'S ORGANIZ ATION 09/19/2023 [facility] DATE CREATED AUTHOR AUTHOR'S ORGANIZ ATION 02/03/2024 [facility] DATE CREATED AUTHOR AUTHOR'S ORGANIZ ATION 03/09/2024 [facility] DATE CREATED AUTHOR AUTHOR'S ORGANIZ ATION 04/16/2024 [facility] EPIC Reason for Visit (unrecogniz ed section and content) Reason Comments Amenorrhea Reason Comments Routine Visit Reason Comments Outpatient Infusion Crohn's Disease [facility] Specialty Diagnoses / Procedures Referred By Contac t Referred To Contact Gastroenterology Diagnoses Crohn's disease of both small and large intestine with intestinal obstruction [place] 5mg/kg (400mg) every 6 weeks/ Auth'd 01.20.24 - 01.18.25/ visits/ [id number] Dr. Montiel NO ACCELERATED INFUSION Procedures INJECTION, INFLIXIMAB-AXXQ, BIOSIMILAR, (AVSOLA), 10 MG INFUSION Hilary Aviles, PREDATORY ANIMAL HUNTER-ORTHOPEDIC PODIATRIST [address], [place] [address] Phone: tel: fax: [facility] [address] [address] Phone: tel: fax: Referral ID Status Reason Start Date Expiration Date V isits Requested Visits Authorized [id number] Authorized 01/20/2024 01/18/2025 9 9 Reason Comments Outpatient Infusion Injectafer Specialty Diagnoses / Procedures Referred By Contac t Referred To Contact Diagnoses Iron deficiency anemia due to chronic blood loss Iron deficiency anemia, unspecified Iron malabsorption Procedures DE INJ FERRIC CARBOXYMALTOS 1MG Mj Pizarro MD [address] [facility] [place] [address] Pfo Med Onc [address] [place] [phone] Referral ID Status Reason Start Date Expiration Date V isits Requested Visits Authorized [id number] Authorized 01/24/2023 07/23/2023 2 2 Reason Comments Outpatient Infusion Inflectra Specialty Diagnoses / Procedures Referred By Contac t Referred To Contact Gastroenterology Diagnoses Crohn's disease of both small and large intestine with intestinal obstruction Inflectra 5mg/kg every 6 weeks, Auth'd for 9 visits 07.26.22-24, SA/Crohns Procedures DE INFLIXIMAB INJECTION INFUSION Hilary Aviles APRN-ORTHOPEDIC PODIATRIST [address] [facility], [place] [address] [address] Referral ID Status Reason Start Date Expiration Date V isits Requested Visits Authorized [id number] Pending Review 07/26/2022 07/26/2023 9 9 Reason Comments Asthma Reason Comments Outpatient Infusion inflectra Specialty Diagnoses / Procedures Referred By Contac t Referred To Contact Gastroenterology Diagnoses Crohn's disease of both small and large intestine with intestinal obstruction Procedures DE INFLIXIMAB INJECTION Referral ID Status Reason Start Date Expiration Date V isits Requested Visits Authorized [id number] Authorized 04/01/2023 04/01/2024 9 9 Reason Comments Mental Health Problem Reason Comments FMLA Reason Comments Anxiety Depression Reason Comments Follow-up Patient is here for a follow up and denies any issues. Reason Comments Follow-up Specialty Diagnoses / Procedures Referred By Contac t Referred To Contact Gastroenterology Diagnoses Crohn's disease of both small and large intestine with intestinal obstruction Procedures DE INFLIXIMAB INJECTION Care Teams (unrecognized sec tion and content) Employment Service Specialist Relationship Specialty Start Date End Date Hilary Aviles MD [address] [place] [address] Referring Physician Nurse Practitioner 10/08/22 Employment Service Specialist Relationship Specialty Start Date End Date Hilary Aviles APRN-CNP [address], [place] [address] PCP - General Family Medicine 01/03/24 Employment Service Specialist Relationship Specialty Start Date End Date Hilary Aviles MD [address] [place] [address] [place] [address] Referring Physician Nurse Practitioner 10/08/22 Employment Service Specialist Relationship Specialty Start Date End Date Hilary Aviles MD [address] [place] [address] [place] [address] Referring Physician Nurse Practitioner 10/08/22 Employment Service Specialist Relationship Specialty Start Date End Date Hilary Aviles MD [address] [place] [address] [place] [address] Referring Physician Nurse Practitioner 10/08/22 Employment Service Specialist Relationship Specialty Start Date End Date Hilary Aviles, PREDATORY ANIMAL HUNTER-ORTHOPEDIC PODIATRIST [address], [place] [address] PCP - General Family Medicine 01/03/24 Employment Service Specialist Relationship Specialty Start Date End Date Hilary Aviles MD [address] [place] [address] Referring Physician Nurse Practitioner 10/08/22 Employment Service Specialist Relationship Specialty Start Date End Date Hilary Aviles MD [address] [place] [address] Referring Physician Nurse Practitioner 10/08/22 Employment Service Specialist Relationship Specialty Start Date End Date Hilary Aviles MD [address] [place] [address] Referring Physician Nurse Practitioner 10/08/22 Employment Service Specialist Relationship Specialty Start Date End Date [facility] [address], [place] [address] PCP - General Family Medicine 12/26/22 Employment Service Specialist Relationship Specialty Start Date End Date Hilary [facility]iles [facility] [address], [place] [address] PCP - General Family Medicine 12/26/22 Employment Service Specialist Relationship Specialty Start Date End Date Hilary [facility]iles [facility] [address], [place] [address] PCP - General Family Medicine 12/26/22 Employment Service Specialist Relationship Specialty Start Date End Date Hil[facility] [address], [place] [address] PCP - General Family Medicine 12/26/22 Employment Service Specialist Relationship Specialty Start Date End Date iHlary Aviles [facility] [address], [place] [address] PCP - General Family Medicine 12/26/22 Employment Service Specialist Relationship Specialty Start Date End Date Hilary [facility]iles [facility] [address], [place] [address] PCP - General Family Medicine 12/26/22 Employment Service Specialist Relationship Specialty Start Date End Date Hilary [facility]iles [facility] [address], [place] [address] PCP - General Family Medicine 12/26/22 Employment Service Specialist Relationship Specialty Start Date End Date Hilary [facility]iles [facility] [address], [place] [address] PCP - General Family Medicine 12/26/22 Employment Service Specialist Relationship Specialty Start Date End Date Hil[facility]iles [facility] [address], [place] [address] PCP - General Family Medicine 12/26/22 Employment Service Specialist Relationship Specialty Start Date End Date Hil[facility]iles [facility] [address], [place] [address] PCP - General Family Medicine 12/26/22 Employment Service Specialist Relationship Specialty Start Date End Date Hil[facility]iles [facility] [address], [place] [address] PCP - General Family Medicine 12/26/22 Employment Service Specialist Relationship Specialty Start Date End Date Hilayr Aviles [facility] [address], [place] [address] PCP - General Family Medicine 12/26/22 Employment Service Specialist Relationship Specialty Start Date End Date Hilary [facility]iles [facility] [address], [place] [address] PCP - General Family Medicine 12/26/22 Employment Service Specialist Relationship Specialty Start Date End Date Hilary Aviles, [facility] [address], [place] [address] PCP - General [facility] Medicine 12/26/22 Employment Service Specialist Relationship Specialty Start Date End Date Hilary Aviles, PREDATORY ANIMAL HUNTERORTHOPEDIC PODIATRIST [address], [place] [address] PCP - General [facility] 01/03/24 Employment Service Specialist Relationship Specialty Start Date End Date Hilary [facility]iles [facility] [address], [place] [address] [facility] 01/03/24 Employment Service Specialist Relationship Specialty Start Date End Date Hilary Aviles MD [address] [place] [address] Referring Physician Nurse Practitioner 10/08/22 FOR RECORDS PERTAINING TO PATIENTS WHO ARE [...] BE BASED ON THE PRIMARY CLINICAL RECORDS. [facility] [employer] [facility]. provides no warranty or guarantee of the accuracy or completeness of information in this document.
[2024-04-18 19:35] VITALS: BP 131/87; PULSE 97; TEMP 36.9
[2024-04-18 19:43] VITALS: BP 131/87; PULSE 97; TEMP 36.9
== END 2024-04-18 20:00 | disposition home or self-care (01) ==
LOC: FBC 19:17
PROVIDERS: Admitting Provider Obstetrics & Gynecology; PCP Nurse Practitioner; Visit Provider Obstetrics & Gynecology
DX: O99.612 Diseases of the digestive system complicating pregnancy, second trimester (principal); K50.90 Crohn's disease, unspecified, without complications; Z3A.23 23 weeks gestation of pregnancy
CPT/HCPCS: G0378; G0379

== ENCOUNTER 2024-04-28 14:01 | Outpatient (OUT) | payer OTHER, SELFPAY ==
[2024-04-28 15:27] LABS: Basophils Percent Auto 0.3 % (0.2-2.0); Eosinophils Absolute Auto 0.1 10^3/uL (0.0-0.7); Hematocrit 29.3 % (36.0-48.0); Hemoglobin 9.4 g/dL (12.0-16.0); Immature Granulocytes Abs Auto 0.04 10^3/uL (0.00-0.03); Immature Granulocytes Pct Auto 0.5 % (0.0-0.5); Lymphocytes Absolute Auto 2.1 10^3/uL (1.2-3.8); Mean Corpuscular HGB Conc 32.1 g/dL (29.9-35.2); Mean Corpuscular Hemoglobin 31.1 pg (26.7-34.0); Monocytes Absolute Auto 0.3 10^3/uL (0.3-0.8); Monocytes Percent Auto 3.4 % (1.7-12.0); Neutrophils Absolute Auto 5.3 10^3/uL (1.4-6.5); Neutrophils Percent Auto 67.8 % (43.0-75.0); Platelet Count 163 10^3/uL (150-450); Red Blood Count 3.02 10^6/uL (4.20-5.40); Red Cell Distribution Width 14.2 % (11.0-15.0); White Blood Count 7.9 10^3/uL (4.0-11.0)
[2024-04-28 15:47] LABS: Glucose 1 Hour 137 mg/dL (<130)
== END 2024-04-28 14:02 | disposition home or self-care (01) ==
LOC: LAB 14:01
PROVIDERS: PCP Nurse Practitioner; Visit Provider Obstetrics & Gynecology
DX: Z13.1 Encounter for screening for diabetes mellitus (principal)
CPT/HCPCS: 36415; 82950; 85025

== ENCOUNTER 2024-05-01 12:18 | Observation (INO) | payer OTHER, SELFPAY ==
--- OUTSIDE RECORDS SUMMARY | 2024-05-01 12:22 | XMS_ITS | CCD ---
Author Organization [facility] Care Team Providers Care Revenue Audit Clerk Name Role Phone ADAMOWICZ, SAMARA J Unavailable Unavailable ADAMOWICZ, SAMARA J Unavailable Unavailable ADAMOWICZ, SAMARA J Unavailable Unavailable ADAMOWICZ, SAMARA J Unavailable Unavailable ADAMOWICZ, SAMARA J Unavailable Unavailable ADAMOWICZ, SAMARA J Unavailable Unavailable ADAMOWICZ, SAMARA J Unavailable Unavailable ADAMOWICZ, SAMARA J Unavailable Unavailable SEBASTIAN HERRING Attending Unavailable SEBASTIAN HERRING Consulting Unavailable SEBASTIAN HERRING Admitting [facility]available [facility], DR VELAZCO Primary Care Unavailable HILARY AVILES Attending Unavailable TRACI HILARY A Referring Unavailable TRACI, HILARY A Primary Care Unavailable TRACI HILARY A Attending Unavailable TRACI HILARY A Referring Unavailable TRACI HILARY A Primary Care Unavailable FRANK AVILESITH A Attending Unavailable TRACI HILARY A Referring Unavailable TRACI, HILARY A Primary Care Unavailable LYNDSEY ANDERS Attending Unavailable FRANK AVILESITH A Referring Unavailable TRACI HILARY A Primary Care Unavailable Hilary Aviles MD Unavailable MJ PIZARRO Referring [...] Care Unavailable SESAR PRICE Attending Unavailable Traci SUPERINTENDENT PLANT PROTECTION-RAIL CAR MAINTENANCE MECHANIC, Hilary A Primary Care Provi lazarus Traci SUPERINTENDENT PLANT PROTE[employer]-RAIL CAR MAINTENANCE MECHANIC, Hilary A Primary Care Provi lazarus TRACI, [...] Unavailable TRACI, HILARY A Primary Care Unavailable Camila MONTIEL Attending Unavailable TRACI, HILARY A Referring Unavailable TRACI, HILARY A Primary Care Unavailable TRACI, HILARY A Referring Unavailable TRACI, HILARY A Primary Care Unavailable TRACI, HILARY A Referring Unavailable TRACI, HILARY A Primary Care Unavailable YAQUELIN HORNE Attending Unavailable PARISH VALDEZ Attending Unavailable PARISH VALDEZ Attending Unavailable YAQUELIN HORNE Attending Unavailable PARISH VALDEZ Attending Unavailable Allergies Allergy Classification Reported Allergen(s) Allergy Type Date of Onset Reaction(s) Facility (20 sources) Sertraline; Translations: [SERTRALINE] Drug Allergy 11-09-2018 Diarrhea [facility] Medications Current Medications Medication Drug Class(es) Dates Sig (Normalized) Sig (Original) acetaminophen 325 mg / HYDROcodone bitartrate 5 mg oral tablet (3 sources) Opioid Agonist Start: 04-20-2024 take 1 tablet by mouth every six hours for pain HYDROcodone-acetaminop hen ([place]) 5-325 MG tablet Indications: Abdominal pain, unspecified abdominal location , Crohn's disease with complication, unspecified gastrointestinal tract location (CMS/HCC) Take 1 tablet by mouth every 6 (six) hours if needed for moderate pain or severe pain for up to 15 doses 15 tablet 04/20/2024 Active [id number] 200 actuat albuterol 0.09 mg/actuat metered dose inhaler (16 sources) beta2-Adrenergi c Agonist Start: 11-26-2021 End: 02-20-2023 take 2 [...] MOUTH IN THE MORNING 05/06/2022 Active cholecalciferol 0.05 mg oral tablet (20 sources) Vitamin D Start: 06-15-2024 take 1 tablet by mouth in the morning cholecalciferol, vitamin D3, 2,000 units tablet Take 1 tablet (2,000 Units total) by mouth in the morning. 90 tablet 1 06/15/2024 Active Start: 06-15-2024 take 1 tablet by anat th in the morning cholecalciferol, vitamin D3, 2,000 units tablet Take 1 tablet (2,000 Units total) by mouth in the morning. 90 tablet 1 06/15/2024 Active Start: 06-15-2024 take 1 tablet by anat th in the morning cholecalciferol, vitamin D3, 2,000 units tablet Take 1 tablet (2,000 Units total) by mouth in the morning. 90 tablet 1 06/15/2024 Active Start: 01-27-2024 End: 04-20-2024 take 1 capsule by mouth every week cholecalciferol (VITAMIN D3) 50,000 units capsule Take 1 capsule (50,000 Units total) by mouth once a week. 8 capsule 04/20/2024 Active Start: 01-26-2024 End: 04-19-2024 take 1 capsule by mouth in the morning cholecalciferol (VITAMIN D3) 50,000 units capsule Take 1 capsule (50,000 Units total) by mouth in the morning. 8 capsule 01/26/2024 04/19/2024 Discontinued Start: 10-01-2021 End: 08-20-2023 take 1 tablet by mouth in the morning cholecalciferol, vitamin D3, 5,000 units tablet Take 1 tablet (5,000 Units total) by mouth in the morning. 90 each 3 10/01/2021 08/20/2023 Discontinued cholecalciferol (Vitamin D-3) 25 MCG (1000 UT) capsule 1,000 Units. Active citalopram 20 mg oral tablet (20 sources) Serotonin Reuptake Inhibitor Start: 09-17-2023 take 1.5 tablets by mouth in the morning citalopram (CeleXA) 20 mg tablet Indications: Current moderate episode of major depressive disorder without prior episode ([facility]) Take 1.5 tablets (30 mg total) by [...] Active End: 08-20-2023 cyanocobalamin/folic acid (v itamin Q52-vcvwi acid) 1,000-400 mcg lozenge B12 08/20/2023 Discontinued [...] catheter every 6 (six) weeks. Active End: 08-20-2023 inFLIXimab-dyyb (INFLECTRA) 100 mg injection Indications: Crohn's [...] mg ondansetron 4 mg disintegrating oral tablet (12 sources) Serotonin-3 Receptor Antagonist Start: 12-29-2023 End: [...] vomiting. Active vit no.124/iron/folic ( VITAMIN ORAL) (8 sources) take 1 tablet by mouth in the morning vit no.124/iron/folic ( VITAMIN ORAL) Take 1 tablet by mouth in the morning. Active vitamin b12 1 mg oral tablet (16 sources) Vitamin B12 Start: 04-21-19 take 1 tablet by mouth in the morning cyanocobalamin (vitamin B-12) 1000 MCG tablet Take 1 tablet (1,000 mcg total) by mouth in the morning. 90 tablet 3 04/20/2024 Active Start: 05-28-2020 End: 08-20-2023 take 2 tablets by mouth in the [...] % 250 mL IVPB (2 sources) Start: 04-19-2024 End: 04-19-2024 400 mg (rounded from 417.5 mg = 5 mg/kg 83.5 kg), intravenous, Once, On Fri04/19/24 at 1115, For 1 dose, Infuse over at least [...] using 0.2 - 1.2 micron filter. Start: 03-08-2024 End: 03-08-2024 400 mg (rounded from 403.5 m g = 5 mg/kg 80.7 kg), intravenous, Once, [...] 08-04-2023 End: 08-04-2023 400 mg, intravenous, Once, O n 08/04/23 at 1330, For 1 dose, Infuse over [...] 1000 ml sodium chloride 9 mg/ml injection (9 sources) Start: 04-19-2024 End: 04-19-2024 take 25 mL intravenously every hour as needed 25 mL/hr, intravenous, Continuous PRN, When mainline IV needed., Starting on Fri04/19/24 at 1042, Match IVF to base solution of product being administered to ensure compatibility. Start: 03-08-2024 End: 03-08-2024 take 25 mL [...] sources) Anxiety; Translations: [Anxiety disorder, unspecified] Onset: 9 12-14-2018 Chronic Asthma (4 sources) Unspecified asthma with (acute) exacerbation; Translations: [Asthma] Onset: 4 02-20-2023 Chronic Coagulation and hemorrhagic disorders (2 sources) Thrombocytopenic disorder; Translations: [Thrombocytopenia, unspecified] Onset: 5 04-19-2024 Chronic Deficiency and other anemia (2 sources) Iron deficiency anemia secondary to blood loss (chronic); Translations: [Iron deficiency anemia secondary to blood loss (chronic)] Onset: 9 Chronic Deficiency and other anemia (20 sources) Iron deficiency anemia due to blood loss; Translations: [Iron deficiency anemia secondary to blood loss (chronic)] Onset: 9 07-17-2018 Chronic E Codes: Fall (1 source) Fall (on) (from) unspecified stairs and steps, initial encounter; Translations: [Fall (on) (from) unspecified stairs and steps, initial encounter] Onset: 4 Episodic E Codes: Fall (1 source) Fall Onset: 4 Immunizations and screening for infectious disease (3 sources) Encounter for screening for human papillomavirus (HPV); Translations: [Exposure to sexually transmissible disorder] Onset: 3 03-17-2024 Episodic Malaise and fatigue (1 source) Fatigue; Translations: [Chronic fatigue, unspecified] 12-01-2023 Chronic Menstrual disorders (1 source) Missed period; Translations: [Irregular menstruation, unspecified] 01-23-2024 Chronic Mood disorders (20 sources) Major depressive disorder, single episode, moderate; Translations: [Major depressive disorder, single episode, unspecified] Onset: 9 11-09-2018 Chronic Other aftercare (2 sources) Patient encounter status; Translations: [Encounter for therapeutic drug level monitoring] 02-03-2024 Episodic Other complications of (1 source) Headache; [...] malabsorption, unspecified; Translations: [Intestinal malabsorption, unspecified] Onset: 1 Chronic Other gastrointestinal disorders (20 sources) Malabsorption - iron; Translations: [Intestinal malabsorption, unspecified] Onset: 1 08-28-2020 Chronic Other gastrointestinal disorders (1 source) Constipation, unspecified; Translations: [Constipation, unspecified] Onset: 4 Episodic Other gastrointestinal disorders (1 source) Constipation Onset: 4 Episodic Other inflammatory condition of skin (20 sources) Scalp psoriasis; 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, unspecified] Onset: 9 12-14-2018 Chronic Other and delivery including normal (10 sources) ; Translations: [Encounter for supervision of normal , unspecified, unspecified trimester] 01-23-2024 Episodic Other screening for suspected conditions (not mental disorders or infectious disease) (8 sources) Encounter for screening for malignant neoplasm of cervix; Translations: [Patient encounter status] Onset: 3 Episodic Other upper respiratory infections (2 sources) Chronic sinusitis, unspecified; Translations: [Sinusitis] Onset: 4 02-20-2023 Chronic Regional enteritis and ulcerative colitis (20 sources) Crohn's disease of both small and large intestine with intestinal obstruction; Translations: [Crohn's disease of small AND large intestines] Onset: 9 03-03-2018 Chronic Residual codes; unclassified (1 source) 12 weeks gestation of ; Translations: [12 weeks gestation of ] Onset: 4 Episodic Residual codes; unclassified (2 sources) Gestation period, 15 weeks; Translations: [15 weeks gestation of ] 02-18-2024 Episodic Residual codes; unclassified (2 sources) Gestation period, 19 weeks; Translations: [19 weeks gestation of ] 03-17-2024 Episodic Residual codes; unclassified (4 sources) Gestation period, 23 weeks; Translations: [23 weeks gestation of ] 04-14-2024 Episodic Unclassified (1 source) FMLA Onset: 4 Unclassified (1 source) Constipation, Early Onset: 4 Unclassified (2 sources) Outpatient Infusion Onset: 3 Viral infection (1 source) COVID-19; Translations: [COVID-19] Onset: 1 Past or Other Problems Problem Classification Problem [...] group vitamins] Onset: 07-08-2019 07-08-2019 Episodic Other aftercare (1 source) Encounter for therapeutic drug level monitoring; Translations: [Encounter for therapeutic drug level monitoring] Onset: 10-31-2023 Episodic Other bone disease and musculoskeletal deformities [...] Range Facility Urinalysis macro (dipstick) panel (U)on 04-26-2024 Bilirubin, UA Negative Negative - 4(70) +++ mg/dL [facility] Blood, UA Negative Negative - 50 Enrrique/mcL [facility] Clarity, UA Clear [facility] Color, UA Yellow [facility] Glucose, UA Negative Negative - 1999(110) ++++ mg/dL [facility] Interpretation and review of laboratory results Abnormal [facility] Ketones, UA Positive Negative - 160(16) ++++ mg/dL [facility] Leukocytes, UA Negative Negative - 500+++ Cam/mcL [facility] Nitrite, UA Negative Negative - Positive [facility] pH, UA 6.5 5 - 9 [facility] Protein, UA Negative Negative - 1999(20) ++++ mg/dL [facility] Spec Grav, UA 1.03 1 - 1.03 [facility] Urobilinogen, UA 1.0 0.2 - 12 mg/dL [facility] US OB LIMITED 1+ FETUSESon 0 04-21-2024 US OB LIMITED 1+ FETUSES EXAM: US OB LIMITED 1+ FETUSES HISTORY: Follow up anatomy of the stomach. COMPARISON: Ob ultrasound 03/24/2024. TECHNIQUE: Two-dimensional transabdominal grayscale ultrasound imaging of the pelvis was performed. FINDINGS: Gestation: Single Presentation: Breech Cardiac Activity: 141 beats per minute Placental Location: Posterior with no sonographic abnormalities identified. Cervical canal : Not visualized Amniotic Fluid: Appears adequate ANATOMY: Stomach: Small IMPRESSION: 1. Single, live intrauterine gestation 24 weeks, 0 days by LMP. ALEJANDRA is 08/11/2024. 2. Small stomach. Consultation with MFM is recommended. Electronically Signed:Electronically signed by MORA THOMAS II, MD, PHD at 22-Apr-2024 09:07:11 AM [facility] Normal Not Available Comment on above: Order Comment: US OB INCOMPLETE ANATOMY Estimated Date of Delivery: 08/11/24 Gestational Age as of 03/25/2024: 20w1d CBC AND AUTO DIFFon 04-20-19 25 ABSOLUTE BASOPHIL 0.0 X10E9/L Normal 0.0-0.2 [facility] Comment on above: Performed By: #### 2 276-4, CBCA, FEPR #### [facility] ([id number]) [address], [address] [place] [address] ABSOLUTE NEUTROPHIL 5.2 X10E9/L Normal 1.5-6.6 [facility] Comment on above: Performed By: #### 2 276-4, CBCA, FEPR #### [facility] ([id number]) [address], [address] [place] [address] Basophils/100 WBC (Bld) 0.4 % Normal [facility] Comment on above: Performed By: #### 2 276-4, CBCA, FEPR #### [facility] ([id number]) [address], [address] [place] [address] Eosinophils (Bld) [#/Vol] 0.0 10*3/uL Normal 0.0-0.4 [facility] Comment on above: Performed By: #### 2 276-4, CBCA, FEPR #### [facility] ([id number]) [address], [address] [place] [address] Eosinophils/100 WBC (Bld) 0.6 % Normal [facility] Comment on above: Performed By: #### 2 276-4, CBCA, FEPR #### [facility] ([id number]) [address], [address] [place] [address] Erythrocyte distribution width (RBC) [Ratio] 14.6 % Normal 11.5-15.0 [facility] Comment on above: Performed By: #### 2 276-4, CBCA, FEPR #### [facility] ([id number]) [address], [address] [place] [address] Hematocrit (Bld) [Volume fraction] 32.4 % Low 35-47 [facility] Comment on above: Performed By: #### 2 276-4, CBCA, FEPR #### [facility] ([id number]) [address], [address] [place] [address] Hemoglobin (Bld) [Mass/Vol] 10.7 g/dL Low 11.7-15.5 [facility] Comment on above: Performed By: #### 2 276-4, CBCA, FEPR #### [facility] ([id number]) [address], [address] [place] [address] Lymphocytes (Bld) [#/Vol] 1.9 10*3/uL Normal 1.0-3.5 [facility] Comment on above: Performed By: #### 2 276-4, CBCA, FEPR #### [facility] ([id number]) [address], [facility] [address] [place] [address] Lymphocytes/100 WBC (Bld) 24.8 % Normal [facility] Comment on above: Performed By: #### 2 276-4, CBCA, FEPR #### [facility] ([id number]) [address], [facility] [address] [place] [address] MCH (RBC) [Entitic mass] 30.9 pg Normal 27-34 [facility] Comment on above: Performed By: #### 2 276-4, CBCA, FEPR #### [facility] ([id number]) [address], [address] [place] [address] MCHC (RBC) [Mass/Vol] 33.0 g/dL Normal 32-36 [facility] Comment on above: Performed By: #### 2 276-4, CBCA, FEPR #### [facility] ([id number]) [address], [facility] [address] [place] [address] MCV (RBC) [Entitic vol] 94 fL Normal 80-100 [facility] Comment on above: Performed By: #### 2 276-4, CBCA, FEPR #### [facility] ([id number]) [address], [facility] [address] [place] [address] Monocytes (Bld) [#/Vol] 0.5 10*3/uL Normal 0-0.9 [facility] Comment on above: Performed By: #### 2 276-4, CBCA, FEPR #### [facility] ([id number]) [address], [address] [place] [address] Monocytes/100 WBC (Bld) 6.5 % Normal [facility] Comment on above: Performed By: #### 2 276-4, CBCA, FEPR #### [facility] ([id number]) [address], [facility] [address] [place] [address] Neutrophils/100 WBC (Bld) 67.7 % Normal [facility] Comment on above: Performed By: #### 2 276-4, CBCA, FEPR #### [facility] ([id number]) [address] [address] [place] [address] Platelet mean volume (Bld) [Entitic vol] 10.8 fL Normal 7-12 [facility] Comment on above: Performed By: #### 2 276-4, CBCA, FEPR #### [facility] ([id number]) [address], [facility] [address] [place] [address] Platelets (Bld) [#/Vol] 162 10*3/uL Normal 150-450 [facility] Comment on above: Performed By: #### 2 276-4, CBCA, FEPR #### [facility] ([id number]) [address] [address] [place] [address] RBC COUNT 3.46 X10E12/L Low 3.80-5.20 [facility] Comment on above: Performed By: #### 2 276-4, CBCA, FEPR #### [facility] ([id number]) [address] [address] [place] [address] WBC (Bld) [#/Vol] 7.7 10*3/uL Normal 4.0-11.0 [facility] Comment on above: Performed By: #### 2 276-4, CBCA, FEPR #### [facility] ([id number]) [address], [address] [place] [address] FERRITINon 04-19-2024 Ferritin [Mass/Vol] 9 ng/mL Low 11-307 [facility] Comment on above: Performed By: #### 2 276-4, CBCA, FEPR #### [facility] ([id number]) [address], [address] [place] [address] IRON PROFILEon 04-19-2024 Iron [Mass/Vol] 78 ug/dL Normal 50-170 [facility] Comment on above: Performed By: #### 2 276-4, CBCA, FEPR #### [facility] ([id number]) [address], [address] [place] [address] IRON BINDING 475 ug/dL High 250-425 [facility] Comment on above: Performed By: #### 2 276-4, CBCA, FEPR #### [facility] ([id number]) [address], [address] [place] [address] IRON SATURATION 16 % SATURATION Normal 15-50 [facility] Comment on above: Performed By: #### 2 276-4, CBCA, FEPR #### [facility] ([id number]) [address], [address] [place] [address] THIOPURINE METABOLITESon 6 METHYLMERCAPTOPRNE <475 Normal < or = 5700 [facility] Comment on above: Result Comment: NOTE Result not quantifiable; below the limit of quantitation. Decreased risk of hepatotoxicity. ADDITIONAL INFORMATION Testing performed by Liquid Chromatography-Tandem Mass Spectrometry (LC-MS/MS) This test was developed and its performance characteristics determined by [facility] in a manner consistent with CLIA requirements. This test has not been cleared or approved by the U.S. Food and Drug Administration. Test Performed by: [facility] [address] [place] [address] Lube Attendant: Celi Fernandez Ph.D.; CLIA# [id number] Performed By: #### 2 276-4, CBCA, FEPR #### [facility] ([id number]) [address] [place] [address] 6 THIOGUANINE 101 pmol/8x10(8)RBC Low 235 - 450 [facility] Comment on above: Result Comment: NOTE Decreased possibility of response; suboptimal dosing or noncompliance. Performed By: #### 2 276-4, CBCA, FEPR #### [facility] ([id number]) [address], [address] [place] [address] VITAMIN B12on 04-19-2024 Cobalamin (Vitamin B12) [Mass/Vol] 143 pg/mL Low 180-914 [facility] Comment on above: Performed By: #### 2 276-4, CBCA, FEPR #### [facility] ([id number]) [address], [address] [place] [address] Vitamin D+Metabolites [Mass/ Vol]on 04-19-2024 VITAMIN D 25 HYD TOT 12.0 ng/mL Low 30-100 [facility] Comment on above: Result Comment: Vitamin D status 25 [place] Vitamin D Deficiency <20 ng/mL Insufficiency 20-29 ng/mL Sufficiency 30-100 ng/mL Toxicity >100 ng/mL NOTE: A pediatric reference range has not been established by the supervisor frame assembly of this kit. The [employer] [place] [employer] recommends a Vitamin D level of = or >20ng/mL in infants and children. Performed By: #### 2 276-4, CBCA, FEPR #### [facility] ([id number]) [address], [address] [place] [address] No Panel Informationon 03-24 Radiology Study observation (narrative) [facility] OB ANATOMYon 03-24-2024 [place] [address] Ultrasound Report Signed Patient: JUAN LUIS STOREY MR#: [id number] : 1990 Acct:[id number] Age/Sex: 33 / F ADM Date: 03/24/24 Loc: US Attending Dr: Parish Valdez D.O. Ordering Physician: Parish Valdez D.O. Date of Service: 03/24/24 Procedure(s): US OB anatomy Accession Number(s): [id number] cc: Parish Valdez D.O.; Hilary Aviles NP [place] [address] Patient Name: JUAN LUIS STOREY MRN: [id number] date: 1990 Sex: F Assigned Patient Location: US Current Patient Location: US Accession/Order Number: [id number] Exam Date: 03/24/2024 10:45 Report Date: 03/24/2024 [...] Signed By: 03/24/24 1139 DD/ 1136 TD/TT: Continuous Improvement Black Belt: [facility] Radiology Radiologaditya duncan MD - 03/24/2024 [place] [address] Ultrasound Report Signed Patient: JUAN LUIS STOREY MR#: [id number] : 1990 Acct:[id number] Age/Sex: 33 / F ADM Date: 03/24/24 Loc: US Attending Dr: Parish Valdez D.O. Ordering Physician: Parish Valdez D.O. Date of Service: 03/24/24 Procedure(s): US OB anatomy Accession Number(s): [id number] cc: Parish Valdez D.O.; Hilary Aviles NP The [place] [id number] Patient Name: JUAN LUIS STOREY MRN: [facility]:[id number] date: 1990 Sex: F Assigned Patient Location: US Current Patient Location: US Accession/Order Number: [id number] Exam Date: 03/24/2024 10:45 Report Date: 03/24/2024 [...] Signed By: 03/24/24 1139 DD/ 1136 TD/TT: Continuous Improvement Black Belt: [facility] [place] US OB ANATOMYOrdered By: Rad iologist Radiology on 03-24-2024 [facility] [place] Work Phone: US OB CERVICAL LENGTHon 03-13 [place] [address] Ultrasound Report Signed Patient: JUAN LUIS STOREY MR#: [id number] : 1990 Acct:[id number] Age/Sex: 33 / F ADM Date: 03/24/24 Loc: US Attending Dr: Parish Valdez D.O. Ordering Physician: Parish Valdez D.O. Date of Service: 03/24/24 Procedure(s): US OB cervical length Accession Number(s): [id number] cc: Parish Valdez D.O.; Hilary Aviles NP [address] [address] Patient Name: JUAN LUIS STOREY MRN: [id number] date: 1990 Sex: F Assigned Patient Location: US Current Patient Location: US Accession/Order Number: [id number] Exam Date: 03/24/2024 10:45 Report Date: 03/24/2024 [...] Signed By: 03/24/24 1138 DD/ 1136 TD/TT: Continuous Improvement Black Belt: [facility] Radiology, Radiologaditya duncan MD - 03/24/2024 [place] [address] Ultrasound Report Signed Patient: JUAN LUIS STOREY MR#: [id number] : 1990 Acct:[id number] Age/Sex: 33 / F ADM Date: 03/24/24 Loc: US Attending Dr: Parish Valdez D.O. Ordering Physician: Parish Valdez D.O. Date of Service: 03/24/24 Procedure(s): US OB cervical length Accession Number(s): [id number] cc: Parish Valdez D.O.; Hilary Aviles NP The [place] [address] Patient Name: JUAN LUIS STOREY MRN: [facility]:[id number] date: 1990 Sex: F Assigned Patient Location: US Current Patient Location: US Accession/Order Number: [id number] Exam Date: 03/24/2024 10:45 Report Date: 03/24/2024 [...] Signed By: 03/24/24 1138 DD/ 1136 TD/TT: Continuous Improvement Black Belt: [facility] US OB CERVICAL LENGTHOrdered By: Radiologist Radiology on 03-24-2024 [facility] Work Phone: RECURRENT VAGINITIS (HTRX)on 03-18-2024 ATOPOBIUM VAGINAE 0 [facility] ATOPOBIUM VAGINAE Not detected [facility] BVAB 2,3 (BACTERIAL VAGINOSIS ASSOCIATED BACTERIA 2, 3); MOBILUNCUS SPP 0 [facility] BVAB 2,3 (BACTERIAL VAGINOSIS ASSOCIATED BACTERIA 2, 3); MOBILUNCUS SPP Not detected [facility] WARD ALBICANS, PARAPSILOSIS, TROPICALIS 0 [facility] WARD ALBICANS, PARAPSILOSIS, TROPICALIS Not detected [facility] Healthcare WARD GLABRATA 0 [facility] Healthcare WARD GLABRATA Not detected [facility] WARD KRUSEI 0 [facility] Healthcare WARD KRUSEI Not detected [facility] Healthcare CHLAMYDIA TRACHOMATIS 0 [facility] CHLAMYDIA TRACHOMATIS Not detected [facility] GARDNERELLA VAGINALIS 0 [facility] GARDNERELLA VAGINALIS Not detected [facility] MEGASPHAERA (TYPES 1, 2) 0 [facility] MEGASPHAERA (TYPES 1, 2) Not detected [facility] MYCOPLASMA GENITALIUM 0 [facility] MYCOPLASMA GENITALIUM Not detected [facility] NEISSERIA GONORRHOEAE 0 [facility] NEISSERIA GONORRHOEAE Not detected [facility] TRICHOMONAS VAGINALIS 0 [facility] TRICHOMONAS VAGINALIS Not detected [facility] US OB CERVICAL LENGTHon 02-12 [place] [address] Ultrasound Report Signed Patient: JUAN LUIS STOREY MR#: [id number] : 1990 Acct:[id number] Age/Sex: 33 / F ADM Date: 03/11/24 Loc: US Attending Dr: Parish Valdez D.O. Ordering Physician: Parish Valdez D.O. Date of Service: 03/11/24 Procedure(s): US OB cervical length Accession Number(s): [id number] cc: Parish Valdez D.O.; Hilary Aviles NP [place] [address] Patient Name: JUAN LUIS STOREY MRN: [facility]:[id number] date: 1990 Sex: F Assigned Patient Location: US Current Patient Location: Accession/Order Number: [id number] Exam Date: 03/11/2024 10:15 Report Date: 03/11/2024 [...] Valera M.D. Signed By: 03/11/24 1056 DD/ 52 TD/TT: Continuous Improvement Black Belt: [facility] Radiology, Radiologaditya duncan MD - 03/11/2024 [place] [address] Ultrasound Report Signed Patient: JUAN LUIS STOREY MR#: [id number] : 1990 Acct:[id number] Age/Sex: 33 / F ADM Date: 03/11/24 Loc: US Attending Dr: Parish Valdez D.O. Ordering Physician: Parish Valdez D.O. Date of Service: 03/11/24 Procedure(s): US OB cervical length Accession Number(s): [id number] cc: Parish Valdez D.O.; Hilary Aviles NP The [place] [address] Patient Name: JUAN LUIS STOREY MRN: [facility]:[id number] date: 1990 Sex: F Assigned Patient Location: US Current Patient Location: US Accession/Order Number: [id number] Exam Date: 03/11/2024 10:15 Report Date: 03/11/2024 [...] Dictated By: Luis Valera M.D. Signed By: 03/11/241055 DD/ 52 TD/TT: Continuous Improvement Black Belt: [facility] Radiology Study observation (narrative) [facility] US OB CERVICAL LENGTHOrdered By: Radiologist Radiology on 03-11-2024 [facility] Work Phone: Urinalysis macro (dipstick) panel (U)on 02-18-2024 Bilirubin, UA Negative Negative - 4(70) +++ mg/dL [facility] Blood, UA Positive Negative - 50 Enrrique/mcL [facility] Comment on above: trace Clarity, UA Clear [facility] Color, UA Yellow [facility] Glucose, UA Negative Negative - 2000(110) ++++ mg/dL [facility] Interpretation and review of laboratory results Abnormal [facility] Ketones, UA Positive Negative - 160(16) ++++ mg/dL [facility] Comment on above: trace Leukocytes, UA Trace Negative - 500+++ Cam/mcL [facility] Nitrite, UA Negative Negative - Positive [facility] pH, UA 7 5 - 9 [facility] Protein, UA Positive Negative - 2000(20) ++++ mg/dL [facility] Comment on above: 30 Spec Grav, UA 1.03 1 - 1.03 [facility] Urobilinogen, UA 1.0 0.2 - 12 mg/dL [facility] ALL CBC WITH AUTO DIFFon BASOPHILS ABSOLUTE AUTO 0 [facility] Basophils/100 WBC (Bld) 0.2 % 0.2 - 2.0 % [facility] Eosinophils/100 WBC (Bld) 0.9 % 0.9 - 7.0 % [facility] Erythrocyte distribution width (RBC) [Ratio] 12.5 % 11.0 - 15.0 % [facility] Hematocrit (Bld) [Volume fraction] 35.3 % Low 36.0 - 48.0 % [facility] Hemoglobin (Bld) [Mass/Vol] 11.8 g/dL Low 12.0 - 16.0 g/dL [facility] IMMATURE GRANULOCYTES ABS AUTO 0.03 [facility] Immature granulocytes/100 WBC (Bld) 0.4 % 0.0 - 0.5 % [facility] Interpretation and review of laboratory results Abnormal [facility] LYMPHOCYTES ABSOLUTE AUTO 2.4 [facility] Lymphocytes/100 WBC (Bld) 29.2 % 20.5 - 60.0 % [facility] MCH (RBC) [Entitic mass] 32 pg 26.7 - 34.0 pg [facility] MCHC (RBC) [Mass/Vol] 33.4 g/dL 29.9 - 35.2 g/dL [facility] MCV (RBC) [Entitic vol] 95.7 fL 81.0 - 99.0 fL [facility] MONOCYTES ABSOLUTE AUTO 0.5 [facility] Monocytes/100 WBC (Bld) 6.5 % 1.7 - 12.0 % [facility] NEUTROPHILS ABSOLUTE AUTO 5.1 [facility] Neutrophils/100 WBC (Bld) 62.8 % 43.0 - 75.0 % [facility] Platelet mean volume (Bld) [Entitic vol] 12 fL 9.5 - 13.5 fL [facility]H EO # 0.1 [facility] PLT 194 [facility] TB RBC 3.69 Low [facility] WBC 8.2 [facility] BASIC METABOLIC PANLon 01-25 Anion gap [Moles/Vol] 9 mmol/L Normal 5-15 [facility] Comment on above: Performed By: #### Elizabeth CARLOS, 2131-10, LIVR, BMP, 72640-0, 1987-06, 56908-0 #### [facility] ([id number]) [address] [place] [address], [facility] [address] [place] [address] #### THMET #### [facility] ([id number]) [address] [place] [address], Calcium [Mass/Vol] 8.6 mg/dL Normal 8.5-10.5 [facility] Comment on above: Performed By: #### Elizabeth CARLOS, 2131-10, LIVR, BMP, 69490-5, 1987-06, 84710-0 #### [facility] ([id number]) [address] [place] [address], [address] [place] [address] #### THMET #### [facility] ([id number]) [address] [place] [address], Chloride [Moles/Vol] 104 mmol/L Normal 98-109 [facility] Comment on above: Performed By: #### C BREANNA, 2131-10, LIVR, BMP, 88516-9, 1987-06, 47119-6 #### [facility] ([id number]) Critical access hospital0 [facility], [address] [place] [address] #### THMET #### [facility] ([id number]) [address] [facility], CO2 [Moles/Vol] 21 mmol/L Low 22-32 [facility] Comment on above: Performed By: #### C BC, 2131-10, LIVR, BMP, 59713-6, 1987-06, 51655-5 #### [facility] ([id number]) [address] [place] [address] #### THMET #### [facility] ([id number]) [address] [place] [address], Creatinine [Mass/Vol] 0.56 mg/dL Normal 0.40-1.00 [facility] Comment on above: Result Comment: METH OD TRACEABLE TO IDMS STANDARD Performed By: #### C BC, 2131-10, LIVR, BMP, 55192-9, 1987-06, 27224-4 #### [facility] ([id number]) [address] [place] [address], [address] [address] #### THMET #### [facility] ([id number]) [address] [place] [address], eGFR (CKD-EPI) NON-RACE DEPENDENT >90 Normal >59 [facility] Comment on above: Result Comment: Reported eGFR is based on the CKD-EPI 2020 equation that does not use a race coefficient. Performed By: #### C BC, 2131-10, LIVR, BMP, 71886-7, 1987-06, 12752-0 #### [facility] ([id number]) [address] [place] [address], [address] [place] [address] #### THMET #### [facility] ([id number]) [address] [place] [address], Glucose [Mass/Vol] 73 mg/dL Normal 65-99 [facility] Comment on above: Performed By: #### Elizabeth CARLOS, 2131-10, LIVR, BMP, 56990-0, 1987-06, 27223-6 #### [facility] ([id number]) [address] [facility], [address] [place] [address] #### THMET #### [facility] ([id number]) [address] [place] [address], Potassium [Moles/Vol] 3.8 mmol/L Normal 3.5-5.0 [facility] Comment on above: Performed By: #### Elizabeth CARLOS, 2131-10, LIVR, BMP, 96778-4, 1987-06, 85627-9 #### [facility] ([id number]) [address] [facility], [address] [place] [address] #### THMET #### [facility] ([id number]) [address] [place] [address], Sodium [Moles/Vol] 134 mmol/L Normal 134-146 [facility] Comment on above: Performed By: #### Elizabeth CARLOS, 2131-10, LIVR, BMP, 33570-4, 1987-06, 66091-3 #### [facility] ([id number]) [address] [facility] [address] [place] [address] #### THMET #### [facility] ([id number]) [address] [place] [address], Urea nitrogen [Mass/Vol] 6 mg/dL Normal 5-23 [facility] Comment on above: Performed By: #### Elizabeth CARLOS, 2131-10, LIVR, BMP, 43243-7, 1987-06, 08890-0 #### [facility] ([id number]) [address] [facility], [address] [place] [address] #### THMET #### [facility] ([id number]) [address] [facility], COMPLETE BLOOD COUNTon 01-25 Erythrocyte distribution width (RBC) [Ratio] 13.7 % Normal 11.5-15.0 [facility] Comment on above: Performed By: #### C BC, 2131-10, LIVR, BMP, 14450-1, 1987-06, 22659-9 #### [facility] ([id number]) [address] [place] [address], [facility] [address] [place] [address] #### THMET #### [facility] ([id number]) [address] [place] [address], Hematocrit (Bld) [Volume fraction] 38.5 % Normal 35-47 [facility] Comment on above: Performed By: #### C BREANNA, 2131-10, LIVR, BMP, , 1987-06, 69007-9 #### [facility] ([id number]) [address] [place] [address], [place] [address] #### THMET #### [facility] ([id number]) [address] [place] [address], Hemoglobin (Bld) [Mass/Vol] 12.8 g/dL Normal 11.7-15.5 [facility] Comment on above: Performed By: #### C BREANNA, 2131-10, LIVR, BMP, , 1987-06, 60420-3 #### [facility] ([id number]) [address] [place] [address], [facility] [address] [place] [address] #### THMET #### [facility] ([id number]) [address] [place] [address], MCH (RBC) [Entitic mass] 32.5 pg Normal 27-34 [facility] Comment on above: Performed By: #### C BC, 2131-10, LIVR, BMP, , 1987-06, 23084-2 #### [facility] ([id number]) [address] [place] [address], [address] [place] [address] #### THMET #### [facility] ([id number]) [address] [facility], MCHC (RBC) [Mass/Vol] 33.3 g/dL Normal 32-36 [facility] Comment on above: Performed By: #### Elizabeth CARLOS, 2131-10, LIVR, BMP, 70619-0, 1987-06, 82776-7 #### [facility] ([id number]) [address] [place] [address], [address] [place] [address] #### THMET #### [facility] ([id number]) [address] [place] [address], MCV (RBC) [Entitic vol] 98 fL Normal 80-100 [facility] Comment on above: Performed By: #### Elizabeth CARLOS, 2131-10, LIVR, BMP, 25400-7, 1987-06, 61240-8 #### [facility] ([id number]) [address] [place] [address], [facility] [address] [place] [address] #### THMET #### [facility] ([id number]) [address] [place] [address], Platelet mean volume (Bld) [Entitic vol] 11.2 fL Normal 7-12 [facility] Comment on above: Performed By: #### Elizabeth CARLOS, 2131-10, LIVR, BMP, 77770-0, 1987-06, 54736-9 #### [facility] ([id number]) [address] [place] [address], [address] [place] [address] #### THMET #### [facility] ([id number]) [address] [place] [address], Platelets (Bld) [#/Vol] 108 10*3/uL Low 150-450 [facility] Comment on above: Performed By: #### Elizabeth CARLOS, 2131-10, LIVR, BMP, 09829-3, 1987-06, 87311-4 #### [facility] ([id number]) [address] [place] [address], [address] [place] [address] #### THMET #### [facility] ([id number]) [address] [place] [address], RBC COUNT 3.95 X10E12/L Normal 3.80-5.20 [facility] Comment on above: Performed By: #### C BC, 2131-10, LIVR, BMP, 41136-3, 1987-06, 17139-6 #### [facility] ([id number]) [address] [place] [address], [place] [address] #### THMET #### [facility] ([id number]) [address] [place] [address], WBC (Bld) [#/Vol] 7.2 10*3/uL Normal 4.0-11.0 [facility] Comment on above: Performed By: #### C BC, 2131-10, LIVR, BMP, 41905-1, 1987-06, 43482-9 #### [facility] ([id number]) [address] [place] [address], [place] [address] #### THMET #### [facility] ([id number]) [address] [place] [address], CRP [Mass/Vol]on 01-26-2024 C REACTIVE PROTEIN 0.7 mg/dL Normal 0.000-0.744 [facility] Comment on above: Performed By: #### C BC, 2131-10, LIVR, BMP, 29794-6, 1987-06, 05173-5 #### [facility] ([id number]) [address] [place] [address], [place] [address] #### THMET #### [facility] ([id number]) [address] [place] [address], ESR Photometric method (Bld) [Velocity]on 01-26-2024 ESR, ERYTHROCYTE SEDIMENTATION RATE 1 mm/h Normal 0-20 [facility] Comment on above: Performed By: #### Elizabeth CARLOS, 2131-10, LIVR, BMP, , 1987-06, 58754-1 #### [facility] ([id number]) Critical access hospital0 [facility], [address] [place] [address] #### THMET #### [facility] ([id number]) [address] [facility], LIVER PANELon 01-26-2024 Albumin [Mass/Vol] 3.7 g/dL Normal 3.2-5.3 [facility] Comment on above: Performed By: #### Elizabeth CARLOS, 2131-10, LIVR, BMP, 43836-6, 1987-06, 18535-4 #### [facility] ([id number]) [address] [place] [address], [address] [place] [address] #### THMET #### [facility] ([id number]) [address] [place] [address], ALP [Catalytic activity/Vol] 29 U/L Low 39-130 [facility] Comment on above: Performed By: #### Elizabeth CARLOS, 2131-10, LIVR, BMP, 74282-8, 1987-06, 71768-0 #### [facility] ([id number]) [address] [place] [address], [address] [place] [address] #### THMET #### [facility] ([id number]) [address] [facility], ALT [Catalytic activity/Vol] 8 U/L Normal 0-31 [facility] Comment on above: Performed By: #### Elizabeth CARLOS, 2131-10, LIVR, BMP, , 1987-06, 17226-8 #### [facility] ([id number]) [address] [place] [address], [address] [place] [address] #### THMET #### [facility] ([id number]) [address] [facility], AST [Catalytic activity/Vol] 19 U/L Normal 0-41 [facility] Comment on above: Performed By: #### C BREANNA, 2131-10, LIVR, BMP, 56226-2, 1987-06, 44171-2 #### [facility] ([id number]) [address] [place] [address], [address] [place] [address] #### THMET #### [facility] ([id number]) [address] [place] [address], Bilirubin [Mass/Vol] 0.4 mg/dL Normal 0.3-1.2 [facility] Comment on above: Performed By: #### C BREANNA, 2131-10, LIVR, BMP, 04487-8, 1987-06, 37829-0 #### [facility] ([id number]) [address] [place] [address], [address] [place] [address] #### THMET #### [facility] ([id number]) [address] [place] [address], Bilirubin.direct [Mass/Vol] 0.1 mg/dL Normal 0.0-0.4 [facility] Comment on above: Performed By: #### Elizabeth CARLOS, 2131-10, LIVR, BMP, 33674-2, 1987-06, 66234-3 #### [facility] ([id number]) [address] [place] [address], [address] [place] [address] #### THMET #### [facility] ([id number]) [address] [place] [address], Protein [Mass/Vol] 7.0 g/dL Normal 6.0-8.0 [facility] Comment on above: Performed By: #### C BREANNA, 2131-10, LIVR, BMP, 84440-7, 1987-06, 83059-0 #### [facility] ([id number]) [address] [place] [address], [address] [place] [address] #### THMET #### [facility] ([id number]) [address] [facility], THIOPURINE METABOLITESon 6 THIOGUANINE Not performed Normal [facility] Comment on above: Result Comment: NOTE Thiopurine Metabolites, B was cancelled on 02/02/2024 at 16:27; Quantity not sufficient to test. Test Performed by: [facility] [address] [place] [address] Lube Attendant: Celi Fernandez Ph.D.; CLIA# [id number] Performed By: #### 2 276-4, CBCA, FEPR #### [facility] ([id number]) [address] [place] [address], [address] [place] [address] VITAMIN B12on 01-26-2024 Cobalamin (Vitamin B12) [Mass/Vol] 239 pg/mL Normal 180-914 [facility] Comment on above: Performed By: #### C BC, 2131-10, LIVR, BMP, 49318-7, 1987-, 89658-5 #### [facility] ([id number]) [address] [place] [address], [address] [place] [address] #### THMET #### [facility] ([id number]) [address] [place] [address], Vitamin D+Metabolites [Mass/ Vol]on 01-26-2024 VITAMIN D 25 HYD TOT 10.1 ng/mL Low 30-100 [facility] Comment on above: Result Comment: Vitamin D status 25 [place] Vitamin D Deficiency <20 ng/mL Insufficiency 20-29 ng/mL Sufficiency 30-100 ng/mL Toxicity >100 ng/mL NOTE: A pediatric reference range has not been established by the supervisor frame assembly of this kit. The [place] [employer] recommends a Vitamin D level of = or >20ng/mL in infants and children. Performed By: #### 2 276-4, CBCA, FEPR #### [facility] ([id number]) [address], [address] [place] [address] HCG ( test) Ql (U)o n 01-23-2024 Interpretation and review of laboratory results Abnormal [facility] Preg Test, Ur Positive Negative [facility] Urinalysis macro (dipstick) panel (U)on 01-23-2024 Bilirubin, UA Negative Negative - 4(70) +++ mg/dL [facility] Blood, UA Positive Negative - 50 Enrrique/mcL [facility] Clarity, UA Clear [facility] Color, UA Yellow [facility] Glucose, UA Negative Negative - 2000(110) ++++ mg/dL [facility] Interpretation and review of laboratory results Abnormal [facility] Ketones, UA Positive Negative - 160(16) ++++ mg/dL [facility] Leukocytes, UA Negative Negative - 500+++ Cam/mcL [facility] Nitrite, UA Negative Negative - Positive [facility] pH, UA 7 5 - 9 [facility] Protein, UA Trace Negative - 1999(20) ++++ mg/dL [facility] Spec Grav, UA 1.015 1 - 1.03 [facility] Urobilinogen, UA 1.0 0.2 - 12 mg/dL [facility] KAY FECAL OCCULT BLDon 01-02 Hemoglobin.gastrointe stinal Ql (Stl) Negative Normal NEG [facility] Comment on above: Performed By: #### 2 335-8 #### [facility] ([id number]) [address] [place] [address], [place] [address] CBC AND AUTO DIFFon 12-01-19 ABSOLUTE BASOPHIL 0.0 X10E9/L Normal 0.0-0.2 [facility] Comment on above: Performed By: #### C BCA, FEPR, 2276-4 #### [facility] ([id number]) [address], [address] [place] [address] ABSOLUTE NEUTROPHIL 1.9 X10E9/L Normal 1.5-6.6 [facility] Comment on above: Performed By: #### C CRUZ, FEPR, 6-4 #### [facility] ([id number]) [address], [address] [place] [address] Basophils/100 WBC (Bld) 0.5 % Normal [facility] Comment on above: Performed By: #### C CRUZ, FEPR, 2275-4 #### [facility] ([id number]) [address], [address] [place] [address] Eosinophils (Bld) [#/Vol] 0.1 10*3/uL Normal 0.0-0.4 [facility] Comment on above: Performed By: #### Elizabeth ARROYO, FEPR, 2275- #### [facility] ([id number]) [address], [address] [place] [address] Eosinophils/100 WBC (Bld) 2.3 % Normal [facility] Comment on above: Performed By: #### Elizabeth ARROYO, FEPR, 2275-05 #### [facility] ([id number]) [address], [address] [place] [address] Erythrocyte distribution width (RBC) [Ratio] 13.3 % Normal 11.5-15.0 [facility] Comment on above: Performed By: #### Elizabeth ARROYO, FEPR, 2275- #### [facility] ([id number]) [address], [address] [place] [address] Hematocrit (Bld) [Volume fraction] 36.2 % Normal 35-47 [facility] Comment on above: Performed By: #### Elizabeth BCA, FEPR, 2275-05 #### [facility] ([id number]) [address], [address] [place] [address] Hemoglobin (Bld) [Mass/Vol] 12.8 g/dL Normal 11.7-15.5 [facility] Comment on above: Performed By: #### Elizabeth ARROYO FEPR, 2275-05 #### [facility] ([id number]) [address], [address] [place] [address] Lymphocytes (Bld) [#/Vol] 2.3 10*3/uL Normal 1.0-3.5 [facility] Comment on above: Performed By: #### Elizabeth ARROYO FEPR, 2275-05 #### [facility] ([id number]) [address], [facility] [address] [place] [address] Lymphocytes/100 WBC (Bld) 47.4 % Normal [facility] Comment on above: Performed By: #### Elizabeth ARROYO FEPR, 2275-05 #### [facility] ([id number]) [address], [facility] [address] [place] [address] MCH (RBC) [Entitic mass] 33.2 pg Normal 27-34 [facility] Comment on above: Performed By: #### Elizabeth ARROYO, FEPR, 2275-05 #### [facility] ([id number]) [address], [address] [place] [address] MCHC (RBC) [Mass/Vol] 35.5 g/dL Normal 32-36 [facility] Comment on above: Performed By: #### Elizabeth ARROYO FEPR, 2275-05 #### [facility] ([id number]) [address], [address] [place] [address] MCV (RBC) [Entitic vol] 94 fL Normal 80-100 [facility] Comment on above: Performed By: #### Elizabeth ARROYO FEPR, 2275-05 #### [facility] ([id number]) [address] [address] [place] [address] Monocytes (Bld) [#/Vol] 0.4 10*3/uL Normal 0-0.9 [facility] Comment on above: Performed By: #### C BCA, FEPR, 2275-05 #### [facility] ([id number]) [address], [address] [place] [address] Monocytes/100 WBC (Bld) 9.1 % Normal [facility] Comment on above: Performed By: #### C BCA, FEPR, 2275- #### [facility] ([id number]) [address], [address] [place] [address] Neutrophils/100 WBC (Bld) 40.7 % Normal [facility] Comment on above: Performed By: #### Elizabeth BCA, FEPR, 2275-4 #### [facility] ([id number]) [address], [address] [place] [address] Platelet mean volume (Bld) [Entitic vol] 11.1 fL Normal 7-12 [facility] Comment on above: Performed By: #### Elizabeth BCA, FEPR, 2275-05 #### [facility] ([id number]) [address], [address] [place] [address] Platelets (Bld) [#/Vol] 187 10*3/uL Normal 150-450 [facility] Comment on above: Performed By: #### Elizabeth BCA, FEPR, 4 #### [facility] ([id number]) [address], [address] [place] [address] RBC COUNT 3.87 X10E12/L Normal 3.80-5.20 [facility] Comment on above: Performed By: #### C BCA, FEPR, 2275- #### [facility] ([id number]) [address], [address] [place] [address] WBC (Bld) [#/Vol] 4.8 10*3/uL Normal 4.0-11.0 [facility] Comment on above: Performed By: #### Elizabeth BCA, FEPR, 2275- #### [facility] ([id number]) [address] [address] [place] [address] FERRITINon 12-01-2023 Ferritin [Mass/Vol] 12 ng/mL Normal 11-307 [facility] Comment on above: Performed By: #### C BCA, FEPR, 2276-4 #### [facility] ([id number]) [address] [place] [address] IRON PROFILEon 12-01-2023 Iron [Mass/Vol] 74 ug/dL Normal 50-170 [facility] Comment on above: Performed By: #### C BCA, FEPR, 6-4 #### [facility] ([id number]) [address] [address] [place] [address] IRON BINDING 344 ug/dL Normal 250-425 [facility] Comment on above: Performed By: #### C BCA, FEPR, 6-4 #### [facility] ([id number]) [address] [address] [place] [address] IRON SATURATION 21 % SATURATION Normal 15-50 [facility] Comment on above: Performed By: #### C BCA, FEPR, 6-4 #### [facility] ([id number]) [address] [address] CBC AND AUTO DIFFon 24-20 24 ABSOLUTE BASOPHIL 0.0 X10E9/L Normal 0.0-0.2 [facility] Comment on above: Performed By: #### 2 276-4, CBCA, FEPR #### [facility] ([id number]) [address] [address] ABSOLUTE NEUTROPHIL 2.7 X10E9/L Normal 1.5-6.6 [facility] Comment on above: Performed By: #### 2 276-4, CBCA, FEPR #### [facility] ([id number]) [address] [place] [address] [place] [address] Basophils/100 WBC (Bld) 0.4 % Normal [facility] Comment on above: Performed By: #### 2 276-4, CBCA, FEPR #### [facility] ([id number]) [address], [facility] [address] [place] [address] Eosinophils (Bld) [#/Vol] 0.1 10*3/uL Normal 0.0-0.4 [facility] Comment on above: Performed By: #### 2 276-4, CBCA, FEPR #### [facility] ([id number]) [address], [facility] [address] [place] [address] Eosinophils/100 WBC (Bld) 2.0 % Normal [facility] Comment on above: Performed By: #### 2 276-4, CBCA, FEPR #### [facility] ([id number]) [address], [facility] [address] [place] [address] Erythrocyte distribution width (RBC) [Ratio] 13.5 % Normal 11.5-15.0 [facility] Comment on above: Performed By: #### 2 276-4, CBCA, FEPR #### [facility] ([id number]) [address] [address] [place] [address] Hematocrit (Bld) [Volume fraction] 35.2 % Normal 35-47 [facility] Comment on above: Performed By: #### 2 276-4, CBCA, FEPR #### [facility] ([id number]) [address], [facility] [address] [place] [address] Hemoglobin (Bld) [Mass/Vol] 12.2 g/dL Normal 11.7-15.5 [facility] Comment on above: Performed By: #### 2 276-4, CBCA, FEPR #### [facility] ([id number]) [address], [facility] [address] [place] [address] Lymphocytes (Bld) [#/Vol] 1.9 10*3/uL Normal 1.0-3.5 [facility] Comment on above: Performed By: #### 2 276-4, CBCA, FEPR #### [facility] ([id number]) [address], [address] [place] [address] Lymphocytes/100 WBC (Bld) 36.8 % Normal [facility] Comment on above: Performed By: #### 2 276-4, CBCA, FEPR #### [facility] ([id number]) [address], [facility] [address] [place] [address] MCH (RBC) [Entitic mass] 31.9 pg Normal 27-34 [facility] Comment on above: Performed By: #### 2 276-4, CBCA, FEPR #### [facility] ([id number]) [address], [address] [place] [address] MCHC (RBC) [Mass/Vol] 34.5 g/dL Normal 32-36 [facility] Comment on above: Performed By: #### 2 276-4, CBCA, FEPR #### [facility] ([id number]) [address], [address] [place] [address] MCV (RBC) [Entitic vol] 93 fL Normal 80-100 [facility] Comment on above: Performed By: #### 2 276-4, CBCA, FEPR #### [facility] ([id number]) [address], [address] [place] [address] Monocytes (Bld) [#/Vol] 0.4 10*3/uL Normal 0-0.9 [facility] Comment on above: Performed By: #### 2 276-4, CBCA, FEPR #### [facility] ([id number]) [address], [address] [place] [address] Monocytes/100 WBC (Bld) 8.3 % Normal [facility] Comment on above: Performed By: #### 2 276-4, CBCA, FEPR #### [facility] ([id number]) [address] [address] [place] [address] Neutrophils/100 WBC (Bld) 52.5 % Normal [facility] Comment on above: Performed By: #### 2 276-4, CBCA, FEPR #### [facility] ([id number]) [address] [address] Platelet mean volume (Bld) [Entitic vol] 10.7 fL Normal 7-12 [facility] Comment on above: Performed By: #### 2 276-4, CBCA, FEPR #### [facility] ([id number]) [address] [address] Platelets (Bld) [#/Vol] 198 10*3/uL Normal 150-450 [facility] Comment on above: Performed By: #### 2 276-4, CBCA, FEPR #### [facility] ([id number]) [address] [address] [place] [address] RBC COUNT 3.81 X10E12/L Normal 3.80-5.20 [facility] Comment on above: Performed By: #### 2 276-4, CBCA, FEPR #### [facility] ([id number]) [address] [address] WBC (Bld) [#/Vol] 5.2 10*3/uL Normal 4.0-11.0 [facility] Comment on above: Performed By: #### 2 276-4, CBCA, FEPR #### [facility] ([id number]) [address], [address] [place] [address] FERRITINon 08-04-2023 Ferritin [Mass/Vol] 27 ng/mL Normal 11-307 [facility] Comment on above: Performed By: #### 2 276-4, CBCA, FEPR #### [facility] ([id number]) [address], [address] [place] [address] IRON PROFILEon 08-04-2023 Iron [Mass/Vol] 46 ug/dL Low 50-170 [facility] Comment on above: Performed By: #### 2 276-4, CBCA, FEPR #### [facility] ([id number]) [address], [address] [place] [address] IRON BINDING 273 ug/dL Normal 250-425 [facility] Comment on above: Performed By: #### 2 276-4, CBCA, FEPR #### [facility] ([id number]) [address], [address] [place] [address] IRON SATURATION 17 % SATURATION Normal 15-50 [facility] Comment on above: Performed By: #### 2 276-4, CBCA, FEPR #### [facility] ([id number]) [address] [place] [address] M. tuberculosis stim IFN-g p carrillo (Bld)on 08-04-2023 Mitogen minus Nil Result 9.92 IU/mL Normal [facility] Comment on above: Performed By: #### 7 1775-1 #### [facility] ([id number]) [address] [place] [address], Nil Result 0.08 IU/mL Normal [facility] Comment on above: Result Comment: NOTE Test Performed by: [facility] [address] [place] [address] Lube Attendant: Celi Fernandez Ph.D.; CLIA# [id number] Performed By: #### 7 1775-1 #### [facility] ([id number]) [address] [facility], QuantiFERON-Tb Gold Plus Result Negative Normal Negative [facility] Comment on above: Result Comment: NOTE [...] IU/mL. Performed By: #### 7 1775-1 #### [facility] ([id number]) [address] [place] [address] TB1 Ag minus Nil Result 0.09 IU/mL Normal [facility] Comment on above: Performed By: #### 7 1775-1 #### [facility] ([id number]) [address] [place] [address], TB2 Ag minus Nil Result 0.01 IU/mL Normal [facility] Comment on above: Performed By: #### 7 1775-1 #### [facility] ([id number]) [address] [place] [address] ACOG PANEL 2: 30 to 65on 05-07-2022 . . Normal [facility] Comment on above: Result Comment: Perf ormed at: WB Performed By: #### 4 [id number] #### [facility] [address] [place] [address] Dr. Bisi Glass Age Gdln ACOG Testing - Normal [facility] Comment on above: Performed By: #### 4 [id number] #### [facility] [address] [address] [address] Bisi Glass DIAGNOSIS: Comment Normal [facility] Comment on above: Result Comment: NEGA TIVE FOR INTRAEPITHELIAL LESION OR MALIGNANCY. Performed at: WB Performed By: #### 4 567452 #### [facility] [address] [address] [address] Bisi Glass HPV Aptima Negative Normal Negative [facility] Comment on above: Result Comment: This nucleic acid amplification test detects fourteen high-risk HPV types (16,18,31,33,35,39,45,51,52,56,58,59,66,68) without differentiation. Performed at: =G Performed By: #### 4 120214 #### [facility] [address] [place] [address] Dr. Bisi Glass HPV Genotype Reflex Comment Normal [facility] Comment on above: Result Comment: Crit eria not met, HPV Genotype not performed. Performed at: WB Performed By: #### 4 990666 #### [facility] [address] [place] [address] Dr. Bisi Glass Methodology: Comment Normal [facility] Comment on above: Result Comment: This liquid based ThinPrep(R) pap test was screened with the use of an image guided system. Performed at: WB Performed By: #### 4 704068 #### [facility] [address] [place] [address] Dr. Bisi Glass Note: Comment Normal [facility] Comment on above: Result Comment: The Pap smear is a screening test designed to aid in the detection of premalignant and malignant conditions of the uterine cervix. It is not a diagnostic procedure and should not be used as the sole means of detecting cervical cancer. Both false-positive and false-negative reports do occur. . Performed at: WB Performed By: #### 4 519401 #### [facility] [address] [place] [address] Dr. Bisi Glass Performed by: Comment Normal [facility] Comment on above: Result Comment: Ngozi Hamlin, Mechanical Maintenance Instructor (ASCP) Performed at: WB Performed By: #### 4 814083 #### [facility] [address] [place] [address] Dr. Bisi Glass Specimen adequacy: Comment Normal [facility] Comment on above: Result Comment: Sati sfactory for evaluation. Endocervical and/or squamous metaplastic cells (endocervical component) are present. Performed at: WB Performed By: #### 4 714627 #### [facility] [address] [address] [address] Bisi Vasquez 02-11-2017 [facility] Letter TextNortjulieta [facility] [address] [place], [place] [address]Aiabm: [phone]: [facility] [address] Karman[facility] Cancer CenterjfSAINT [place], [place] [address]Pyjno: [phone]: [facility] [address] [place], [place] [address]Pborz: [phone]: Toll Free: [phone] [email or web address] Raza Roldan M.D., Jhon Mora M.D.Barry Camarena M.D.Samara Hernandez D.O..Bettie Henry M.D. FACROSaju A. Rajan, M.D.February 11, 2017[place] [address] [facility] [address]Shpe Ms. Storey,You missed your scheduled appointment on Saturday February 11, 2017. Pleasecall our office to reschedule. If you need to cancel any futureappointments, please call to give us 24 hour notice so that we can offer yourappointment to another patient.Sincerely,Brando Olivera Normal [facility] HOSP 12-03-2016 HOSP Infusion Center (HEMTCL) JUAN LUIS STOREY ([id number]) 1990 FDate Time Provider Ycytlogfkh12/24/17 1:00 PM CHAIR 1 JOSE PADGETT During your visit today, we recorded the following information about you: Temperature Pulse Respiration Blood pressure 98.9 degrees 76/minute 18/minute 97/64Referring Provider: SAMARA HERNANDEZ [[id number]]Allergies As of Date: 12/03/2016(No Known Allergies)Date Reviewed: 12/03/2016Reviewed by: Kristi (Rn) JAD Partida - Fully AssessedPrimary Visit Diagnosis:Anemia, unspecified type [D64.9]Order(s):TREATMEN T PARAMETER-NOT NEEDED [9990217] Order #: [id number]: 1 HEMONC NURSING COMMUNICATION [9990214] Order #: [id number]: 1 STANDING HEMONC NURSING COMMUNICATION [9990214] Order #: [id number]: 1 STANDING HEMONC NURSING COMMUNICATION [9990214] Order #: [id number]: 1 STANDING HEMONC NURSING COMMUNICATION [9990214] Order #: [id number]: 1 STANDING HEMONC NURSING COMMUNICATION [9990214] Order #: [id number]: 1 STANDING HEMONC NURSING COMMUNICATION [9990214] Order #: [id number]: 1 STANDING [] iron sucrose 200 mg [...] (1 ML) INJECTION* 12/03/2016 Route: INTRAMUSCULAEncounter Number: [id number] Status:Closed by KRISTI PARTIDA on 12/03/16 [facility] CNOVSPon 11-19-2016 CNOVSP Visit (SP) Office (HEMACL) JUAN LUIS STOREY ([id number]) 1990 FDa Time Provider Jhzpnatuku59/10/17 11:00 AM SAMARA HERNANDEZ HEMACL During your visit today, we recorded the following information about you: Temperature Pulse Respiration Blood pressure 97.8 degrees 78/minute 18/minute 96/61 Weight Height 59.6 kg 1.632 mApmartin Berger 11/19/2016 11:15 AM SignedPatient states feeling more fatigue.Samara Hernandez DO 11/23/2016 9:43 AM SignedPATIENT NAME: Gerashmuel Richey RaleighMRN: [id number] PHYSICIAN: IFTIKHAR RAZO[address] [place], [place] [address]PRIMARY CARE PHYSICIAN: Iftikhar RazoOTHER PHYSICIANS:CHIEF COMPLAINT: Anemia, unspecified type (primary encounter diagnosis)ASSESSMENT/NILA N:(D64.9) Anemia, unspecified type (primary encounter diagnosis)1. Anemia, [...] 02/19/2017), or f/u 3 months. thats it.. ---HISTORY OF PRESENT ILLNESS: This is a 26year old -Central African femaleCBC from 05/22/16 reveals white blood cell [...] her second kid in dec 2014.Works a [employer] service.June 04, 2016Eats a bag of ice per week basically. Otherwise she does not seem verysymptomatic from her anemia.July 30, 2016 not eating ice. She doesn't feel a lot different otherwise. Still a bittired. Less than previously. Periods settle down a bit. Has not seen yet, scheduled for sometime this month.After her second iron infusion she had pretty severe constipation abdominalbloating.Novobe r 2016 add on visit for recurrent iron [...] tingling. BACK: Notenderness to palpation. No flank tenderness.MEDICATIONS:b uPROPion XL (WELLBUTRIN XL) 150 mg 24 hr [...] I answered all questions satisfactorily..Mariano Hernandez D.O.Medical OncologistHenrietta, [place]Referring Provider: SAMARA HERNANDEZ [[id number]]Allergies As of Date: 11/19/2016(No Known Allergies)Date Reviewed: [...] by SAMARA HERNANDEZ DO on 11/23/16 Normal [facility] PROGRESSon 11-19-2016 PROGRESS HNO ID: [id number]: Samara HernandezService: (none)Author Type: PhysicianType: Progress NotesFiled: 11/23/2016 9:43 AMNote Text:PATIENT NAME: Juan Luis StoreyMRN: [id number] PHYSICIAN: IFTIKHAR RAZO[address] [place] [address] CARE PHYSICIAN: Iftikhar RazoOTHER PHYSICIANS:CHIEF COMPLAINT: Anemia, unspecified type (primary encounter diagnosis)ASSESSMENT/NILA N:(D64.9) Anemia, unspecified type (primary encounter diagnosis)1. Anemia, [...] 02/19/2017), or f/u 3 months. thats it.. --HISTORY OF PRESENT ILLNESS: This is a 26year old -Central African femaleCBC from 05/22/16 reveals white blood cell [...] her second kid in dec 2014.Works a [employer] service.June 04, 2016Eats a bag of [...] Seehistory of present illness. LYMPH: No cervical, supraclavicular,axillary , inguinal adenopathy.RESP: dyspnea, cough, wheezing. LUNG: Clear [...] tingling. BACK: Notenderness to palpation. No flank tenderness.MEDICATIONS:b uPROPion XL (WELLBUTRIN XL) 150 mg 24 hr [...] I answered all questions satisfactorily..Mariano Hernandez D.O.Medical OncologistHen[place], [place] Normal [facility] Remote CBCDIF (for [facility] use o nly)on 11-19-2016 Abs Baso 0.02 k/uL Normal <0.11 [facility] Abs [place] 0.40 k/uL Normal 0.00-0.86 [facility] Abs Neut 3.13 k/uL Normal 1.45-7.50 [facility] Basophils/100 WBC Auto (Bld) 0.4 % Normal [facility] Eosinophils 0.05 10*3/uL Normal <0.46 [facility] Eosinophils/100 leukocytes 0.9 % Normal [facility] Erythrocyte distribution width Auto Ratio (RBC) 13.5 % Normal 11.5-15.0 [facility] Erythrocytes (RBC) 3.87 10*6/uL Low 3.90-5.20 [facility] Hematocrit (HCT) 33.0 % Low 36.0-46.0 [facility] Hemoglobin mass conc (Bld) 10.5 g/dL Low 11.5-15.5 [facility] Lymphocytes 1.70 10*3/uL Normal 1.00-4.00 [facility] Lymphocytes/100 leukocytes 32.1 % Normal [facility] MCH 27.1 pG Normal 26.0-34.0 [facility] MCHC mass conc (RBC) 31.8 g/dL Normal 30.5-36.0 [facility] MCV 85.3 fL Normal 80.0-100.0 [facility] Monocytes/100 leukocytes 7.5 % Normal [facility] Neutrophils/100 WBC Auto (Bld) 59.1 % Normal [facility] Platelet mean volume (PMV) 11.0 fL Normal 9.0-12.7 [facility] Platelets 288 10*3/uL Normal 150-400 [facility] WBC (Leukocytes) 5.30 10*3/uL Normal 3.70-11.00 [facility] Remote iSTAT BMP (for [facility] us e only)on 11-19-2016 Anion gap 11 mmol/L Normal 0-15 [facility] BUN (urea nitrogen) 12 mg/dL Normal 8-25 [facility] Chloride 105 mmol/L Normal 98-110 [facility] CO2 24 mmol/L Normal 23-32 [facility] Creatinine 0.70 mg/dL Normal 0.70-1.40 [facility] eGFR (non-black) mL/min/{1.73_m2} Normal [facility] Comment on above: Result Comment: eGFR [...] Glucose mass conc 79 mg/dL Normal 65-100 [facility] Ionized Calcium, WB 1.14 mmol/L Normal 1.08-1.30 [facility] Comment on above: Result Comment: Plea se note: This value represents ionized calcium not total calcium. Potassium molar conc 4.0 mmol/L Normal 3.5-5.0 [facility] Sodium 140 mmol/L Normal 132-148 [facility] Ferritinon 10-29-2016 Ferritin 19.8 ng/mL Normal 14.7-205.1 [facility] Comment on above: Performed By: #### I CHERYL, FERR ####[facility] [address] [place], [place] [phone] Iron and TIBCon 10-29-2016 Iron 21 ug/dL Low 41-186 [facility] Comment on above: Performed By: #### I CHERYL, FERR ####[facility] [address] AveCHuntington Park, [place] [phone] TIBC 331 ug/dL Normal 232-386 [facility] Comment on above: Performed By: #### I CHERYL, FERR ####[facility] [address] [place], [place] [phone] Transferrin Saturatn 6 % Low 15-57 [facility] Comment on above: Performed By: #### I CHERYL, FERR ####[facility] [address], [place] [phone] Remote CBCDIF (for [facility] use o nly)on 10-29-2016 Abs Baso 0.02 k/uL Normal 0.00-0.10 [facility] Abs [place] 0.42 k/uL Normal 0.00-0.86 [facility] Abs Neut 3.06 k/uL Normal 1.45-7.50 [facility] Basophils/100 WBC Auto (Bld) 0.3 % Normal [facility] Eosinophils 0.11 10*3/uL Normal 0.00-0.45 [facility] Eosinophils/100 leukocytes 1.8 % Normal [facility] Erythrocyte distribution width Auto Ratio (RBC) 12.9 % Normal 11.5-15.0 [facility] Erythrocytes (RBC) 3.90 10*6/uL Normal 3.90-5.20 [facility] Hematocrit (HCT) 34.0 % Low 36.0-46.0 [facility] Hemoglobin mass conc (Bld) 10.8 g/dL Low 11.5-15.5 [facility] Lymphocytes 2.37 10*3/uL Normal 1.00-4.00 [facility] Lymphocytes/100 leukocytes 39.6 % Normal [facility] MCH 27.7 pG Normal 26.0-34.0 [facility] MCHC mass conc (RBC) 31.8 g/dL Normal 30.5-36.0 [facility] MCV 87.2 fL Normal 80.0-100.0 [facility] Monocytes/100 leukocytes 7.0 % Normal [facility] Neutrophils/100 WBC Auto (Bld) 51.3 % Normal [facility] Platelet mean volume (PMV) 10.8 fL Normal 9.0-12.7 [facility] Platelets 268 10*3/uL Normal 150-400 [facility] WBC (Leukocytes) 5.98 10*3/uL Normal 3.70-11.00 [facility] Remote iSTAT BMP (for [facility] us e only)on 10-29-2016 Anion gap 11 mmol/L Normal 0-15 [facility] BUN (urea nitrogen) 9 mg/dL Normal 8-25 [facility] Chloride 104 mmol/L Normal 98-110 [facility] CO2 26 mmol/L Normal 23-32 [facility] Creatinine 0.70 mg/dL Normal 0.70-1.40 [facility] eGFR (non-black) mL/min/{1.73_m2} Normal [facility] Comment on above: Result Comment: eGFR [...] Glucose mass conc 83 mg/dL Normal 65-100 [facility] Ionized Calcium, WB 1.16 mmol/L Normal 1.08-1.30 [facility] Comment on above: Result Comment: Lore reyes note: This value represents ionized calcium not total calcium. Potassium molar conc 3.8 mmol/L Normal 3.5-5.0 [facility] Sodium 141 mmol/L Normal 132-148 [facility] Ferritinon 10-01-2016 Ferritin 9.1 ng/mL Low 14.7-205.1 [facility] Comment on above: Performed By: #### I CHERYL, FERR ####[address] [place] [phone] Iron and TIBCon 10-01-2016 Iron 34 ug/dL Low 41-186 [facility] Comment on above: Performed By: #### I CHERYL, FERR ####[address] [place] [phone] TIBC 316 ug/dL Normal 232-386 [facility] Comment on above: Performed By: #### Aditya LUNA, FERR ####[address] [place] [phone] Transferrin Saturatn 11 % Low 15-57 [facility] Comment on above: Performed By: #### I CHERYL, FERR ####[facility] [phone] Remote CBCDIF (for [facility] use o nly)on 10-01-2016 Abs Baso 0.02 k/uL Normal 0.00-0.10 [facility] Abs [place] 0.53 k/uL Normal 0.00-0.86 [facility] Abs Neut 2.48 k/uL Normal 1.45-7.50 [facility] Basophils/100 WBC Auto (Bld) 0.4 % Normal [facility] Eosinophils 0.09 10*3/uL Normal 0.00-0.45 [facility] Eosinophils/100 leukocytes 1.6 % Normal [facility] Erythrocyte distribution width Auto Ratio (RBC) 13.7 % Normal 11.5-15.0 [facility] Erythrocytes (RBC) 3.85 10*6/uL Low 3.90-5.20 [facility] Hematocrit (HCT) 33.5 % Low 36.0-46.0 [facility] Hemoglobin mass conc (Bld) 10.7 g/dL Low 11.5-15.5 [facility] Lymphocytes 2.36 10*3/uL Normal 1.00-4.00 [facility] Lymphocytes/100 leukocytes 43.1 % Normal [facility] MCH 27.8 pG Normal 26.0-34.0 [facility] MCHC mass conc (RBC) 31.9 g/dL Normal 30.5-36.0 [facility] MCV 87.0 fL Normal 80.0-100.0 [facility] Monocytes/100 leukocytes 9.7 % Normal [facility] Neutrophils/100 WBC Auto (Bld) 45.2 % Normal [facility] Platelet mean volume (PMV) 10.8 fL Normal 9.0-12.7 [facility] Platelets 282 10*3/uL Normal 150-400 [facility] WBC (Leukocytes) 5.48 10*3/uL Normal 3.70-11.00 [facility] Remote iSTAT BMP (for [facility] us e only)on 10-01-2016 Anion gap 13 mmol/L Normal 0-15 [facility] BUN (urea nitrogen) 14 mg/dL Normal 8-25 [facility] Chloride 102 mmol/L Normal 98-110 [facility] CO2 24 mmol/L Normal 23-32 [facility] Creatinine 0.70 mg/dL Normal 0.70-1.40 [facility] eGFR (non-black) mL/min/{1.73_m2} Normal [facility] Comment on above: Result Comment: eGFR [...] Glucose mass conc 93 mg/dL Normal 65-100 [facility] Ionized Calcium, WB 1.14 mmol/L Normal 1.08-1.30 [facility] Comment on above: Result Comment: Lore reyes note: This value represents ionized calcium not total calcium. Potassium molar conc 3.7 mmol/L Normal 3.5-5.0 [facility] Sodium 139 mmol/L Normal 132-148 [facility] Remote CBCDIF (for [facility] use o nly)on 08-29-2016 Abs Baso 0.02 k/uL Normal 0.00-0.10 [facility] Abs [place] 0.52 k/uL Normal 0.00-0.86 [facility] Abs Neut 3.37 k/uL Normal 1.45-7.50 [facility] Basophils/100 WBC Auto (Bld) 0.3 % Normal [facility] Eosinophils 0.10 10*3/uL Normal 0.00-0.45 [facility] Eosinophils/100 leukocytes 1.7 % Normal [facility] Erythrocyte distribution width Auto Ratio (RBC) 18.7 % High 11.5-15.0 [facility] Erythrocytes (RBC) 3.97 10*6/uL Normal 3.90-5.20 [facility] Hematocrit (HCT) 33.0 % Low 36.0-46.0 [facility] Hemoglobin mass conc (Bld) 10.5 g/dL Low 11.5-15.5 [facility] Lymphocytes 1.92 10*3/uL Normal 1.00-4.00 [facility] Lymphocytes/100 leukocytes 32.4 % Normal [facility] MCH 26.4 pG Normal 26.0-34.0 [facility] MCHC mass conc (RBC) 31.8 g/dL Normal 30.5-36.0 [facility] MCV 83.1 fL Normal 80.0-100.0 [facility] Monocytes/100 leukocytes 8.8 % Normal [facility] Neutrophils/100 WBC Auto (Bld) 56.8 % Normal [facility] Platelet mean volume (PMV) 10.0 fL Normal 9.0-12.7 [facility] Platelets 263 10*3/uL Normal 150-400 [facility] WBC (Leukocytes) 5.93 10*3/uL Normal 3.70-11.00 [facility] Remote iSTAT BMP (for [facility] us e only)on 08-29-2016 Anion gap 12 mmol/L Normal 0-15 [facility] BUN (urea nitrogen) 12 mg/dL Normal 8-25 [facility] Chloride 104 mmol/L Normal 98-110 [facility] CO2 24 mmol/L Normal 23-32 [facility] Creatinine 0.80 mg/dL Normal 0.70-1.40 [facility] eGFR (non-black) mL/min/{1.73_m2} Normal Cl [facility] Comment on above: Result Comment: eGFR [...] Glucose mass conc 91 mg/dL Normal 65-100 [facility] Ionized Calcium, WB 1.14 mmol/L Normal 1.08-1.30 [facility] Comment on above: Result Comment: Plea se note: This value represents ionized calcium not total calcium. Potassium molar conc 3.7 mmol/L Normal 3.5-5.0 [facility] Sodium 140 mmol/L Normal 132-148 [facility] Vital Signs Date Time Vital Sign Value Performing Clinician Facility 04-26-2024 10:26-0400 Body mass index (BMI) [Ratio] 30.65 kg/m2 [employer] Work Phone: [facility] [place] 04-26-2024 10:26-0400 Body weight 83.55 kg [employer] Work Phone: [facility] 04-26-2024 10:26-0400 Diastolic blood pressure 76 mm[Hg] Parish Courtney DO Work Phone: [facility] 04-26-2024 10:26-0400 Systolic blood pressure 122 mm[Hg] Parish Courtney DO Work Phone: [facility] 04-19-2024 13:13-0400 Body temperature 99.19 [degF] Wl 1 [facility] 04-19-2024 13:13-0400 Diastolic blood pressure 79 mm[Hg] Wlc 1 [facility] 04-19-2024 13:13-0400 Heart rate 96 /min Wl 1 [facility] 04-19-2024 13:13-0400 Respiratory rate 20 /min Wl 1 [facility] 04-19-2024 13:13-0400 Systolic blood pressure 116 mm[Hg] [facility] 1 [facility] 04-19-2024 10:41-0400 Body mass index (BMI) [Ratio] 30.63 kg/m2 [facility] 1 [facility] 04-19-2024 10:41-0400 Body weight 83.5 kg Wlc 1 [facility] 04-19-2024 09:53-0400 Body height 165.1 cm Sharda Montiel MD Work Phone: [facility] 04-19-2024 09:53-0400 Body mass index (BMI) [Ratio] 30.62 kg/m2 Sharda Montiel MD Work Phone: [facility] 04-19-2024 09:53-0400 Body weight 83.46 kg Sharda Montiel MD Work Phone: [facility] 04-19-2024 09:53-0400 Diastolic blood pressure 86 mm[Hg] Sharda Montiel MD Work Phone: [facility] 04-19-2024 09:53-0400 Systolic blood pressure 140 mm[Hg] Sharda Montiel MD Work Phone: [facility] 04-14-2024 14:33-0500 Body mass index (BMI) [Ratio] 30.42 kg/m2 Parish Courtney DO Work Phone: [facility] 04-14-2024 14:33-0500 Body weight 82.92 kg Parish Courtney DO Work Phone: [facility] 04-14-2024 14:33-0500 Diastolic blood pressure 72 mm[Hg] Parish Courtney DO Work Phone: [facility] 04-14-2024 14:33-0500 Systolic blood pressure 122 mm[Hg] Parish Courtney DO Work Phone: [facility] 03-17-2024 10:51-0500 Body mass index (BMI) [Ratio] 29.31 kg/m2 Yaquelin Horne PA Work Phone: [facility] 03-17-2024 10:51-0500 Body weight 79.89 kg Yaquelin Horne PA Work Phone: [facility] 03-17-2024 10:51-0500 Diastolic blood pressure 70 mm[Hg] Yaquelin Glenoma PA Work Phone: [facility] 03-17-2024 10:51-0500 Systolic blood pressure 116 mm[Hg] Yaquelin Horne PA Work Phone: [facility] 03-08-2024 12:30-0500 Body temperature 99.81 [degF] Wlc 1 [facility] 03-08-2024 12:30-0500 Diastolic blood pressure 69 mm[Hg] Wlc 1 [facility] 03-08-2024 12:30-0500 Heart rate 103 /min Wlc 1 [facility] 03-08-2024 12:30-0500 Respiratory rate 18 /min Wlc 1 [facility] 03-08-2024 12:30-0500 Systolic blood pressure 109 mm[Hg] Wlc 1 [facility] 03-08-2024 10:10-0500 Body mass index (BMI) [Ratio] 29.62 kg/m2 Wl 1 [facility] 03-08-2024 10:10-0500 Body weight 80.74 kg Wlc 1 [facility] 02-18-2024 11:43-0500 Body mass index (BMI) [Ratio] 29.29 kg/m2 Parish Courtney DO Work Phone: [facility] 02-18-2024 11:43-0500 Body weight 79.83 kg Parish Courtney DO Work Phone: [facility] 02-18-2024 11:43-0500 Diastolic blood pressure 72 mm[Hg] Parish Courtney DO Work Phone: [facility] 02-18-2024 11:43-0500 Systolic blood pressure 122 mm[Hg] Parish Courtney DO Work Phone: [facility] 12-12-2023 11:50-0400 Body temperature 98.91 [degF] [facility] 2 [facility] 12-12-2023 11:50-0400 Diastolic blood pressure 66 mm[Hg] [facility] 2 [facility] 12-12-2023 11:50-0400 Heart rate 92 /min [facility] 2 [facility] 12-12-2023 11:50-0400 Respiratory rate 18 /min [facility] 2 [facility] 12-12-2023 11:50-0400 Systolic blood pressure 100 mm[Hg] [facility] 2 [facility] 12-12-2023 10:31-0400 Body mass index (BMI) [Ratio] 27.96 kg/m2 [facility] 2 [facility] 12-12-2023 10:31-0400 Body weight 76.2 kg [facility] 2 [facility] 12-01-2023 14:25-0400 Body height 165.1 cm Dominique Josh [employer] Work Phone: [facility] 12-01-2023 14:25-0400 Body mass index (BMI) [Ratio] 27.89 kg/m2 Dominique Josh [employer] Work Phone: [facility] 12-01-2023 14:25-0400 Body temperature 98.8 [degF] Dominique Josh [employer] Work Phone: [facility] 12-01-2023 14:25-0400 Body weight 76.02 kg Dominique Josh [employer] Work Phone: [facility] 12-01-2023 14:25-0400 Diastolic blood pressure 76 mm[Hg] Dominique Josh [employer] Work Phone: [facility] 12-01-2023 14:25-0400 Heart rate 71 /min Dominique Josh [employer] Work Phone: [facility] 12-01-2023 14:25-0400 Respiratory rate 16 /min Dominique Josh [employer] Work Phone: [facility] 12-01-2023 14:25-0400 SaO2% (BldA) [Mass fraction] 99 % Dominique Josh [employer] Work Phone: [facility] 12-01-2023 14:25-0400 Systolic blood pressure 111 mm[Hg] Dominique Josh [employer] Work Phone: [facility] 10-31-2023 11:13-0400 Body temperature 98.6 [degF] [facility] 2 [facility] 10-31-2023 11:13-0400 Diastolic blood pressure 72 mm[Hg] [facility] 2 [facility] 10-31-2023 11:13-0400 Heart rate 85 /min [facility] 2 [facility] 10-31-2023 11:13-0400 Respiratory rate 18 /min [facility] 2 [facility] 10-31-2023 11:13-0400 Systolic blood pressure 112 mm[Hg] [facility] 2 [facility] 10-31-2023 09:51-0400 Body mass index (BMI) [Ratio] 27.81 kg/m2 [facility] 2 [facility] 10-31-2023 09:51-0400 Body weight 75.8 kg [facility] 2 [facility] 10-31-2023 08:50-0400 Body height 165.1 cm Sharda Montiel MD Work Phone: [facility] 10-31-2023 08:50-0400 Body mass index (BMI) [Ratio] 27.79 kg/m2 Sharda Montiel MD Work Phone: [facility] 10-31-2023 08:50-0400 Body weight 75.75 kg Sharda Montiel MD Work Phone: [facility] 10-31-2023 08:50-0400 Diastolic blood pressure 60 mm[Hg] Sharda Montiel MD Work Phone: [facility] 10-31-2023 08:50-0400 Systolic blood pressure 100 mm[Hg] Sharda Montiel MD Work Phone: [facility] 09-17-2023 09:46-0400 Body mass index (BMI) [Ratio] 27.06 kg/m2 Hilary Aviles [employer] Work Phone: [facility] 09-17-2023 09:46-0400 Body temperature 98.2 [degF] Hilary Aviles [employer] Work Phone: [facility] 09-17-2023 09:46-0400 Body weight 73.75 kg Hilary Aviles [employer] Work Phone: [facility] 09-17-2023 09:46-0400 Diastolic blood pressure 60 mm[Hg] Hilary Aviles [employer] Work Phone: [facility] 09-17-2023 09:46-0400 Heart rate 75 /min Hilary Aviles [employer] Work Phone: [facility] 09-17-2023 09:46-0400 SaO2% (BldA) [Mass fraction] 97 % Hilary Aviles [employer] Work Phone: [facility] 09-17-2023 09:46-0400 Systolic blood pressure 98 mm[Hg] Hilary Aviles [employer] Work Phone: [facility] 09-15-2023 12:10-0400 Body temperature 98.71 [degF] [facility] 3 [facility] 09-15-2023 12:10-0400 Diastolic blood pressure 70 mm[Hg] [facility] 3 [facility] 09-15-2023 12:10-0400 Heart rate 75 /min [facility] 3 [facility] 09-15-2023 12:10-0400 Respiratory rate 20 /min [facility] 3 [facility] 09-15-2023 12:10-0400 Systolic blood pressure 117 mm[Hg] [facility] 3 [facility] 09-15-2023 10:43-0400 Body mass index (BMI) [Ratio] 26.89 kg/m2 [address] 09-15-2023 10:43-0400 Body weight 73.3 kg [facility] 3 [facility] 08-20-2023 14:15-0400 Body height 165.1 cm Hilary Aviles [employer] Work Phone: [facility] 08-20-2023 14:15-0400 Body mass index (BMI) [Ratio] 26.36 kg/m2 Hilary Aviles [employer] Work Phone: [facility] 08-20-2023 14:15-0400 Body temperature 98.6 [degF] Hilary Aviles [employer] Work Phone: [facility] 08-20-2023 14:15-0400 Body weight 71.85 kg Hilary Aviles [employer] Work Phone: [facility] 08-20-2023 14:15-0400 Diastolic blood pressure 72 mm[Hg] Hilary Aviles [employer] Work Phone: [facility] 08-20-2023 14:15-0400 Heart rate 87 /min Hilary Aviles [employer] Work Phone: [facility] 08-20-2023 14:15-0400 SaO2% (BldA) [Mass fraction] 97 % Hilary Aviles [employer] Work Phone: [facility] 08-20-2023 14:15-0400 Systolic blood pressure 116 mm[Hg] Hilary Aviles [employer] Work Phone: [facility] 08-04-2023 14:48-0400 Body temperature 98.2 [degF] [facility] 2 [facility] 08-04-2023 14:48-0400 Diastolic blood pressure 77 mm[Hg] [facility] 2 [facility] 08-04-2023 14:48-0400 Heart rate 76 /min [facility] 2 [facility] 08-04-2023 14:48-0400 Respiratory rate 20 /min [facility] 2 [facility] 08-04-2023 14:48-0400 Systolic blood pressure 118 mm[Hg] [facility] 2 [facility] 08-04-2023 13:22-0400 Body mass index (BMI) [Ratio] 27.19 kg/m2 [facility] 2 [facility] 08-04-2023 13:22-0400 Body weight 74.12 kg [facility] 2 [facility] 04-21-2023 13:05-0400 Body temperature 97.81 [degF] [facility] 4 [facility] 04-21-2023 13:05-0400 Diastolic blood pressure 75 mm[Hg] [facility] 4 [facility] 04-21-2023 13:05-0400 Heart rate 78 /min [facility] 4 [facility] 04-21-2023 13:05-0400 Respiratory rate 20 /min [facility] 4 [facility] 04-21-2023 13:05-0400 Systolic blood pressure 117 mm[Hg] [facility] 4 [facility] 04-21-2023 10:29-0400 Body mass index (BMI) [Ratio] 27.89 kg/m2 [facility] 4 [facility] 04-21-2023 10:29-0400 Body weight 76.02 kg [facility] 4 [facility] 02-20-2023 11:48-0500 Body height 165.1 cm Lyndsey Anders MD Work Phone: [facility] 02-20-2023 11:48-0500 Body mass index (BMI) [Ratio] 27.46 kg/m2 Lyndsey Anders MD Work Phone: [facility] 02-20-2023 11:48-0500 Body temperature 98.91 [degF] Lyndsey Anders MD Work Phone: [facility] 02-20-2023 11:48-0500 Body weight 74.84 kg Lyndsey Anders MD Work Phone: [facility] 02-20-2023 11:48-0500 Diastolic blood pressure 72 mm[Hg] Lyndsey Anders MD Work Phone: [facility] 02-20-2023 11:48-0500 Heart rate 104 /min Lyndsey Anders MD Work Phone: [facility] 02-20-2023 11:48-0500 SaO2% (BldA) [Mass fraction] 99 % Lyndsey Anders MD Work Phone: [facility] 02-20-2023 11:48-0500 Systolic blood pressure 114 mm[Hg] Lyndsey Anders MD Work Phone: [facility] 02-17-2023 14:26-0500 Body temperature 99.1 [degF] [facility] 3 [facility] 02-17-2023 14:26-0500 Diastolic blood pressure 77 mm[Hg] [facility] 3 [facility] 02-17-2023 14:26-0500 Heart rate 100 /min [facility] 3 [facility] 02-17-2023 14:26-0500 SaO2% (BldA) [Mass fraction] 97 % [facility] 3 [facility] 02-17-2023 14:26-0500 Systolic blood pressure 117 mm[Hg] Wlc 3 [facility] 02-17-2023 11:45-0500 Body mass index (BMI) [Ratio] 27.69 kg/m2 Wlc 3 [facility] 02-17-2023 11:45-0500 Body weight 75.48 kg Wlc 3 [facility] 02-17-2023 11:45-0500 Respiratory rate 20 /min Wlc 3 [facility] 02-06-2023 12:54-0500 Diastolic blood pressure 69 mm[Hg] Pfo 3 [facility] 02-06-2023 12:54-0500 Heart rate 92 /min Pfo 3 [facility] 02-06-2023 12:54-0500 Respiratory rate 18 /min Pfo 3 [facility] 02-06-2023 12:54-0500 SaO2% (BldA) [Mass fraction] 100 % Pfo 3 [facility] 02-06-2023 12:54-0500 Systolic blood pressure 104 mm[Hg] Pfo 3 [facility] 02-06-2023 11:37-0500 Body height 165.1 cm Pfo 3 [facility] 02-06-2023 11:37-0500 Body mass index (BMI) [Ratio] 27.46 kg/m2 Pfo 3 [facility] 02-06-2023 11:37-0500 Body temperature 98.4 [degF] Pfo 3 [facility] 02-06-2023 11:37-0500 Body weight 74.84 kg Pfo 3 [facility] Encounters Encounter Date Encounter Type Care Provider Facility Start: 04-26-2024 End: 04-26-2024 Bamboo flowsheet Parish Courtney DO Work Phone: [facility] Start: 04-26-2024 End: 04-26-2024 Bamboo flowsheet Parish Courtney DO Work Phone: [facility] Start: 04-26-2024 End: 04-26-2024 flow sheet Parish Courtney DO Work Phone: [facility] Comment on above: Second trimester pre gnancy; 23 weeks gestation of ; Crohn's disease with complication, unspecified gastrointestinal tract location (CMS/HCC) Start: 04-26-2024 End: 04-26-2024 ambulatory PARISH VALDEZ Not Available Start: 04-23-2024 End: 04-23-2024 Orders Only [facility]iel [facility] Comment on above: Ulcerative colitis w ith other complication, unspecified location (CMS-HCC) (Primary Dx) Start: 04-22-2024 End: 04-22-2024 Orders Only Sharda Montiel MD [facility] Comment on above: Crohn's disease of c olon with other complication (CMS-HCC) (Primary Dx) Start: 04-21-2024 End: 04-21-2024 ambulatory YAQUELIN HORNE Not Available Start: 04-20-2024 End: 04-20-2024 Orders Only Sharda Montiel MD Work Phone: [facility] Start: 04-19-2024 End: 04-21-2024 Telephone encounter Sharda Montiel MD Work Phone: [facility] Start: 04-19-2024 End: 04-19-2024 ambulatory HILARY Magen [facility] Start: 04-19-2024 End: 04-19-2024 Office outpatient visit 40 minutes Sharda Montiel MD Work Phone: [facility] Comment on above: Thrombocytopenia (CM S-HCC) (Primary Dx); Crohn's disease with complication, unspecified gastrointestinal tract location (CMS-HCC) Start: 04-19-2024 End: 04-19-2024 ambulatory [facility] Comment on above: Crohn's disease of b oth small and large intestine with intestinal obstruction (CMS-HCC) (Primary Dx) Start: 04-14-2024 End: 04-14-2024 Bamboo flowsheet Parish Valdez DO Work Phone: [facility] Start: 04-14-2024 End: 04-14-2024 Bamboo flowsheet Parish Courtney DO Work Phone: [facility] Start: 04-14-2024 End: 04-14-2024 ambulatory PARISH COURTNEY Not Available Start: 04-14-2024 End: 04-14-2024 flow sheet Parish Courtney DO Work Phone: [facility] Comment on above: Diabetes mellitus sc reening; Second trimester ; 23 weeks gestation of Start: 03-24-2024 End: 03-24-2024 Clinisync Result Encounter Parish Courtney DO Work Phone: [facility] Unsolicited Start: 03-24-2024 End: 03-24-2024 Clinisync Result Encounter Parish Courtney DO Work Phone: [facility] External Department Unsolicited Start: 03-17-2024 End: 03-17-2024 Bamboo flowsheet Yaquelin BELCHER Work Phone: [facility] Start: 03-17-2024 End: 03-18-2024 Bamboo flowsheet Yaquelin BELCHER Work Phone: [facility] Start: 03-17-2024 End: 03-18-2024 External Result Encounter Yaquelin BELCHER Work Phone: [facility] Unsolicited Start: 03-17-2024 End: 03-17-2024 ambulatory YAQUELIN HORNE Not Available Start: 03-17-2024 End: 03-17-2024 flow sheet Yaquelin BELCHER Work Phone: [facility] Comment on above: Second trimester pre gnancy; 19 weeks gestation of ; Vaginal discharge; STD exposure; Screening, , for anatomic survey Start: 03-11-2024 End: 03-11-2024 Clinisync Result Encounter Parish Courtney DO Work Phone: [facility] Unsolicited Start: 03-11-2024 End: 03-11-2024 Clinisync Result Encounter Parish Courtney DO Work Phone: [facility] Unsolicited Start: 03-08-2024 End: 03-08-2024 ambulatory [facility] [...] 01-31-2024 End: 01-31-2024 Emergency department patient visit [facility] Start: 01-26-2024 End: 01-26-2024 ambulatory [facility] Start: 01-26-2024 End: 01-26-2024 ambulatory [facility] Start: 01-23-2024 End: 01-23-2024 ambulatory YAQUELIN HORNE Not Available Start: 01-23-2024 End: 01-23-2024 Office outpatient visit 5 minutes [facility] Courtney Nurse [facility] Comment on above: GA: 11w2d Start: 01-13-2024 End: 01-13-2024 Orders Only Dominique Moya [employer] MECH[employer]IC Work Phone: [facility] - Medical Oncology Comment on above: Iron deficiency anem ia due to chronic blood loss (Primary Dx); Iron malabsorption; Iron deficiency anemia, unspecified Start: 01-06-2024 End: 01-06-2024 Orders Only Dominique Moya [employer]INTENAN[employer] MECHANIC Work Phone: [facility] Medical Oncology Comment on above: Iron deficiency anem ia due to chronic blood loss (Primary Dx); Iron malabsorption; Iron deficiency anemia, unspecified Start: 01-03-2024 End: 01-03-2024 Emergency department patient visit HILARY AVILES [facility] Start: 12-17-2023 End: 12-18-2023 Telephone encounter Raf Zarco RN [facility] Start: 12-12-2023 End: 12-12-2023 ambulatory [facility] 2 [facility] Comment on above: Crohn's disease of b oth small and large intestine with intestinal obstruction (CMS-HCC) (Primary Dx) Start: 12-01-2023 End: 12-01-2023 Office outpatient visit 25 minutes Dominique Moya [employer]INTENANCE MECHANIC Work Phone: [facility]ly [facility] Medical Oncology Comment on above: Iron deficiency (Ping hussein Dx); Crohn's disease of both small and large intestine with intestinal obstruction (CMS-HCC); Chronic fatigue; Leg cramps; Noncompliance; Iron deficiency anemia due to chronic blood loss; Iron malabsorption; Iron deficiency anemia, unspecified Start: 12-01-2023 End: 12-01-2023 ambulatory DOMINIQUE Us [facility] Start: 12-01-2023 End: 12-01-2023 ambulatory MJ PIZARRO [facility] Start: 10-31-2023 End: 10-31-2023 Office outpatient visit 25 minutes Sharda Montiel MD Work Phone: [facility] Comment on above: Therapeutic drug mon itoring (Primary Dx); Crohn's disease of both small and large intestine with other complication (CMS-HCC) Start: 10-31-2023 End: 10-31-2023 ambulatory [facility] 2 [facility] Comment on above: Crohn's disease of b oth small and large intestine with intestinal obstruction (CMS-HCC) (Primary Dx) Start: 09-17-2023 End: 09-17-2023 ambulatory [facility] Start: 09-17-2023 End: 09-17-2023 Office outpatient visit 25 minutes Hilary Aviles [employer] MECH[employer]IC Work Phone: [facility] Comment on above: Current moderate epi sode of major depressive disorder without prior episode (CMS-HCC) (Primary Dx); Crohn's disease of both small and large intestine with intestinal obstruction (CMS-HCC) Start: 09-15-2023 End: 09-16-2023 Telephone encounter Sharda Montiel MD Work Phone: [facility] Start: 09-15-2023 End: 09-15-2023 ambulatory [facility] 3 [facility] Comment on above: Crohn's disease of b oth small and large intestine with intestinal obstruction (CMS-HCC) (Primary Dx) Start: 09-03-2023 End: 09-03-2023 Telephone encounter Hilary Aviles [employer]TE[employer] MECH[employer]IC Work Phone: [facility] Start: 09-03-2023 End: 09-03-2023 ambulatory [facility] Start: 09-03-2023 End: 09-03-2023 Phys/qhp telephone evaluation 11-20 min Hilary Aviles [employer] MECH[employer]IC Work Phone: [facility] Comment on above: Reactive depression (Primary Dx) Start: 08-20-2023 End: 08-20-2023 [facility] Start: 08-20-2023 End: 08-20-2023 Office [facility] [employer]INTENAN[employer] MECHANIC Work Phone: [facility] Comment on above: Anxiety (Primary Dx) Start: 08-04-2023 End: 08-04-2023 ambulatory [facility] Comment on above: [...] [facility] Start: 04-21-2023 End: 04-21-2023 ambulatory [facility] 4 [facility] Comment on above: Crohn's disease of b oth small and large intestine with intestinal obstruction (CMS-HCC) (Primary Dx) Start: 04-14-2023 Telephone encounter Nic Aguilar [facility] Start: 03-31-2023 Telephone encounter Nic Aguilar [facility] Start: 03-19-2023 End: 03-19-2023 ambulatory LYNDSEY ANDERS [facility] Start: 02-20-2023 End: 02-20-2023 Office outpatient visit 25 minutes Lyndsey Anders MD Work Phone: [facility] Comment on above: Reactive airway dise ase with acute exacerbation, unspecified asthma severity, unspecified whether persistent (Primary Dx); Shortness of breath; COVID-19; Sinusitis, unspecified chronicity, unspecified location Start: 02-20-2023 End: 02-20-2023 ambulatory LYNDSEY Man NADER [facility] Start: 02-17-2023 End: 02-17-2023 ambulatory [facility] Infusion Chair 3 [facility] Comment on above: Crohn's disease of b oth small and large intestine with intestinal obstruction (CMS-HCC) (Primary Dx) Start: 02-06-2023 End: 02-06-2023 ambulatory MJ PIZARRO [facility] Comment on above: Iron deficiency anem ia due to chronic blood loss (Primary Dx); Iron deficiency anemia, unspecified; Iron malabsorption Start: 04-30-2022 End: 04-30-2022 ambulatory SEBASTIAN HERRING Facility: Start: 12-03-2016 End: 12-04-2016 Ambulatory SAMARA HERNANDEZ [facility] Start: 11-19-2016 End: 11-26-2016 Ambulatory SAMARA HERNANDEZ [facility] Start: 10-29-2016 End: 10-30-2016 Ambulatory SAMARA HERNANDEZ [facility] Start: 10-01-2016 End: 10-01-2016 Ambulatory SAMARA HERNANDEZ [facility] Start: 08-29-2016 End: 08-29-2016 [facility] Date Procedure Procedure Detail Performing Clinician Start: 04-26-2024 Urnls dip stick/tabl et rgnt non-auto w/o micrscp Parish Courtney DO Work Phone: Start: 03-24-2024 US OB ANATOMY Parish Mac [...] Adult depression scr eening assessment Hilary Aviles [employer] MECH[employer]IC Work Phone: Start: 09-17-2023 Microscopic observat ion [Identifier] in Cervix by Cyto stain Sharda Montiel MD Work Phone: Start: 08-20-2023 Adult depression scr eening assessment Hilary Aviles [employer]TE[employer] MECHANIC Work Phone: Start: 11-23-2020 Adult depression scr eening assessment Pfo 3 Plan of Treatment Date Care Activity Detail Author Start: 09-16-2026 Screening for malign ant neoplasm of cervix Pap Smear [facility] Start: 04-19-2025 Adult BMI Screening Adult BMI Screen ing [facility] Start: 04-19-2025 Tobacco Screening Tobacco Screening [facility] Start: 01-30-2025 Adult BMI Screening Adult BMI Screen ing [facility] Start: 01-30-2025 Tobacco Screening Tobacco Screening [facility] Start: 01-02-2025 Adult BMI Screening Adult BMI Screen ing [facility] Start: 01-02-2025 Tobacco Screening Tobacco Screening [facility] Start: 12-11-2024 Adult BMI Screening Adult BMI Screen ing [facility] Start: 12-02-2024 End: 12-02-2024 Patient encounter procedure 12/02/2024 10:15 AM EDT Office Visit [facility] - [facility] Oncology [address] [place] [phone] Mj Pizarro MD [address] [place] [address] Ally [facility] Start: 10-30-2024 Adult BMI Screening Adult BMI Screen ing [facility] Start: 10-30-2024 Tobacco Screening [facility] Start: 09-16-2024 Adult BMI Screening [facility] Start: 09-16-2024 Depression Screening Depression Scre ening [facility] Start: 09-16-2024 Tobacco Screening [facility] Start: 09-14-2024 Adult BMI Screening Adult BMI Screen ing [facility] Start: 09-02-2024 Tobacco Screening Tobacco [facility] Start: 08-19-2024 Adult BMI Screening Adult BMI Screen ing [facility] Start: 08-19-2024 Depression Screening Depression Scre ening [facility] Start: 08-19-2024 Tobacco Screening [facility] Start: 08-03-2024 Adult BMI Screening Adult BMI Screen ing [facility] Start: 06-28-2024 End: 06-28-2024 ambulatory 06/28/2024 10:30 AM EDT Infusion [facility]fusion [address] [phone] [facility] Start: 05-31-2024 End: 05-31-2024 ambulatory 05/31/2024 10:00 AM EDT Infusion [facility] [address] [phone] [facility] Start: 05-24-2024 End: 05-24-2024 ambulatory 05/24/2024 10:30 AM EDT Infusion [facility] [address] [phone] [facility] Start: 05-12-2024 End: 05-12-2024 Patient encounter procedure 05/12/2024 2:30 PM EDT Routine [facility] [address] [place] [phone] Yaquelin Horne PA [address] [place] [address] [facility] Start: 04-26-2024 End: 04-26-2024 Patient encounter procedure 04/26/2024 10:10 AM EDT Office Visit [facility] [address] [place] [phone] Parish Valdez DO [address] [place] [address] Arrived [facility] Comment on above: Arrived Start: 04-21-2024 End: 04-21-2024 Professional / ancillary services management 04/21/2024 11:00 AM EDT Ancillary Procedure [facility] [address] [place] [id number] [facility] Start: 04-20-2024 Adult BMI Screening Adult BMI Screen ing [facility] Start: 04-19-2024 End: 04-19-2025 Cyanocobalamin vitamin b-12 Vitamin B12 Lab Routine Crohn's disease with complication, unspecified gastrointestinal tract location ([facility]) Expected: 04/19/2024, Expires: 04/19/2025 [facility] Comment on above: Expected: 04/19/2024 , Expires: 04/19/2025 Start: 04-19-2024 End: 04-19-2024 ambulatory 04/19/2024 10:30 AM EDT Infusion [facility] [address] [facility] [address] [place] [phone] [facility] Start: 04-19-2024 End: 04-19-2024 Patient encounter procedure [facility] Start: 04-14-2024 End: 04-14-2025 CBC panel - Blood by Automated count CBC Lab Routine Diabetes mellitus screening Expected: 04/14/2024 (Approximate), Expires: 04/14/2025 [facility] Work Phone: Comment on above: Expected: 04/14/2024 (Approximate), Expires: 04/14/2025 Start: 04-14-2024 End: 04-14-2025 Measurement of glucose 1 hour after glucose challenge for glucose tolerance test Glucose tolerance, 1 hour Lab Routine Diabetes mellitus screening Expected: 04/14/2024 (Approximate), Expires: 04/14/2025 [facility] Comment on above: Expected: 04/14/2024 (Approximate), Expires: 04/14/2025 Start: 04-14-2024 End: 04-14-2024 Patient encounter procedure 04/14/2024 1:40 PM EST Routine [facility] [address] [place] [phone] Parish Valdez DO [address] [place] [address] [facility] Start: 03-17-2024 End: 09-14-2024 Alpha fetoprotein, maternal Alpha fetoprotein, maternal Lab Routine Second trimester 19 weeks gestation of Expected: 03/17/2024 (Approximate), Expires: 09/14/2024 [facility] Comment on above: Expected: 03/17/2024 (Approximate), Expires: 09/14/2024 Start: 03-17-2024 End: 03-17-2025 US for US OB 14+ weeks anatomy scan Imaging Routine Screening, , for anatomic survey Expected: 03/17/2024, Expires: 03/17/2025 [facility] Comment on above: Expected: 03/17/2024 , Expires: 03/17/2025 Start: 03-17-2024 End: 03-17-2024 Patient encounter procedure 03/17/2024 10:30 AM EST Routine [facility] [address] [place] [id number] Yaquelin Horne PA [address] [place] [address] [facility] Start: 03-08-2024 End: 03-08-2024 ambulatory 03/08/2024 10:00 AM EST [facility] [address] [facility] [address] [place] [phone] [facility] Start: 02-21-2024 Adult BMI Screening Adult BMI Screen ing [facility] Start: 02-21-2024 Tobacco Screening Tobacco Screening [facility] Start: 02-18-2024 Adult BMI Screening Adult BMI Screen ing [facility] Start: 02-18-2024 End: 02-18-2024 Patient encounter procedure 02/18/2024 11:30 AM EST Routine [facility] [address] [place] [phone] Parish Valdez, DO [address] [place] [address] [facility] Start: 02-07-2024 Tobacco Screening Tobacco Screening [facility] Start: 01-31-2024 Adult BMI Screening Adult BMI Screen ing [facility] Start: 01-31-2024 Tobacco Screening Tobacco Screening [facility] Start: 01-26-2024 End: 01-26-2024 ambulatory 01/26/2024 10:00 AM EST [facility] [address] [facility] [address] [place] [address] [facility] Start: 01-23-2024 End: 01-22-2025 ABO/Rh ABO/Rh Lab Routine Missed menses , unspecified gestational age Expected: 01/23/2024 (Approximate), Expires: 01/22/2025 [facility] Comment on above: Expected: 01/23/2024 (Approximate), Expires: 01/22/2025 Start: 01-23-2024 End: 01-22-2025 Blood type and Indirect antibody screen panel - Blood Type and screen Lab Routine Missed menses , unspecified gestational age Expected: 01/23/2024 (Approximate), Expires: 01/22/2025 [facility] Work Phone: Comment on above: Expected: 01/23/2024 (Approximate), Expires: 01/22/2025 Start: 01-23-2024 End: 01-22-2025 Drugs of abuse panel - Urine by Screen method Rapid drug screen, urine Lab Routine , unspecified gestational age Encounter for supervision of normal first in first trimester Expected: 01/23/2024 (Approximate), Expires: 01/22/2025 [facility] Comment on above: Expected: 01/23/2024 (Approximate), Expires: 01/22/2025 Start: 01-23-2024 End: 01-22-2025 US Pelvis transvaginal US OB transvaginal Imaging Routine Missed menses Expected: 01/23/2024 (Approximate), Expires: 01/22/2025 [facility] Comment on above: Expected: 01/23/2024 (Approximate), Expires: 01/22/2025 Start: 12-22-2023 End: 12-22-2023 Patient encounter procedure 12/22/2023 3:40 PM EST Office Visit [facility] [address] [place] [phone] Hilary Aviles, [employer]NA[employer] MECHANIC [address] [facility] [address], [place], [place] [phone] [facility] Start: 12-12-2023 End: 12-12-2023 ambulatory 12/12/2023 10:00 AM EDT Infusion [facility] [address] [facility] [address] [place] [phone] [facility] Start: 11-20-2023 End: 11-20-2023 Patient encounter procedure 11/20/2023 1:00 PM EDT Office Visit [facility] [address] [place] [address] Mj Pizarro MD [address] [place] [address] [facility] Start: 11-19-2023 End: 11-19-2023 Patient encounter procedure 11/19/2023 9:40 AM EDT Office Visit [facility] [address] [place] [place] [phone] Hilary Aviles, [employer] MAINTENANCE MECHANIC [address], [place] [address] [facility] Start: 10-31-2023 End: 10-30-2024 C-reactive protein C-reactive protein Lab Routine Crohn's disease of both small and large intestine with other complication ([facility]) Expected: 10/31/2023, Expires: 10/30/2024 [email or web address] Comment on above: Expected: 10/31/2023 , Expires: 10/30/2024 Start: 10-31-2023 End: 10-30-2024 Cyanocobalamin vitamin b-12 Vitamin B12 Lab Routine Crohn's disease of both small and large intestine with other complication ([facility]) Expected: 10/31/2023, Expires: 10/30/2024 [facility] Comment on above: Expected: 10/31/2023 , Expires: 10/30/2024 Start: 10-31-2023 End: 10-30-2024 Erythrocyte sedimentation rate Erythrocyte Sedimentation Rate (ESR) Lab Routine Crohn's disease of both small and large intestine with other complication ([facility]) Expected: 10/31/2023, Expires: 10/30/2024 [email or web address] Comment on above: Expected: 10/31/2023 , Expires: 10/30/2024 Start: 10-31-2023 End: 10-31-2023 ambulatory 10/31/2023 9:30 AM EDT [facility] [address] [facility] [address] [place] [phone] [facility] Start: 10-31-2023 End: 10-31-2023 Patient encounter procedure 10/31/2023 9:00 AM EDT Office Visit [facility] [address] [facility] [address] [place] [address] Sharda Montiel MD [address] [facility] [place] [address] [facility] Start: 10-27-2023 End: 10-27-2023 ambulatory 10/27/2023 12:00 PM EDT Infusion [facility] [address] [facility] [address] [place] [address] [facility] Start: 10-27-2023 End: 10-27-2023 Patient encounter procedure 10/27/2023 11:30 AM EDT Office Visit [facility] [address] [facility] [address] [place] [address] Sharda Montiel MD [address] [facility] [place] [address] [facility] Start: 10-12-2023 Influenza vaccination Influenza Vacc ine [facility] Start: 09-17-2023 End: 09-17-2023 Patient encounter procedure 09/17/2023 9:20 AM EDT Office Visit [facility] [address] [place] [phone] Hilary Aviles, [employer] MAINTENANCE MECHANIC [address] [facility] [address], [place] [address] [facility] Start: 09-15-2023 End: 09-15-2023 ambulatory 09/15/2023 10:00 AM EDT Infusion [facility] [address] [facility] [address] [place] [address] [facility] Start: 06-17-2023 End: 06-17-2023 Patient encounter procedure 06/17/2023 11:15 AM EDT Office Visit [facility] [address] [facility] [address] [place] [address] Meaghan King PA-C [address] [facility] [address] [place] [address] [facility] Start: 06-10-2023 End: 06-10-2023 ambulatory 06/10/2023 10:30 AM EDT Infusion [facility] [address] [facility] [address] [facility] [place] [address] [facility] Start: 04-21-2023 End: 04-21-2023 ambulatory 04/21/2023 10:00 AM EDT Infusion [facility] [address] [place] [address] [facility] Start: 03-31-2023 End: 03-31-2023 ambulatory 03/31/2023 10:00 AM EST Infusion [facility] [address] [facility] [address] [facility] [place] [address] [facility] Start: 02-17-2023 End: 02-17-2023 ambulatory 02/17/2023 11:30 AM EST Infusion [facility] [address] [phone] [facility] Start: 10-11-2022 Influenza vaccination Influenza Vacc ine [facility] Start: 11-23-2021 [facility] Start: 2010 Screening for malign ant neoplasm of cervix Pap Smear [facility] Start: 2008 DTaP,Tdap and Td Vaccines (1 - Tdap) DTaP,Tdap and Td Vaccines (1 - Tdap) [facility] Start: 11-11-2007 Adult BMI Follow Up Plan Adult BMI F ollow Up Plan [facility] Bacteria identified in Urine by Culture Urine culture Microbiology Routine Missed menses Ordered: 01/23/2024 Tyto Cariloop Comment on above: Ordered: 01/23/2024 End: 10-30-2024 Basic metabolic 2000 panel - Serum or Plasma Basic Metabolic Panel Lab Routine Therapeutic drug monitoring Crohn's disease of both small and large intestine with other complication ([facility] 1 Occurrences starting 10/31/2023 until 10/30/2024 [facility] Comment on above: 1 Occurrences starti ng 10/31/2023 until 10/30/2024 End: 10-30-2024 Calprotectin, F Calprotectin, F Lab Routine Crohn's disease of both small and large intestine with other complication ([facility]) 1 Occurrences starting 10/31/2023 until 10/30/2024 [employer] Work Phone: Comment on above: 1 Occurrences starti ng 10/31/2023 until 10/30/2024 End: 04-22-2025 Calprotectin, F Calprotectin, F Lab Routine Crohn's disease of colon with other complication ([facility]) 1 Occurrences starting 04/22/2024 until 04/22/2025 [employer] Work Phone: Comment on above: 1 Occurrences starti ng 04/22/2024 until 04/22/2025 End: 04-23-2025 Calprotectin, F Calprotectin, F Lab Routine Ulcerative colitis with other complication, unspecified location ([facility]) 1 Occurrences starting 04/23/2024 until 04/23/2025 [employer] Work Phone: Comment on above: 1 Occurrences starti ng 04/23/2024 until 04/23/2025 End: 10-30-2024 CBC panel - Blood by Automated count CBC without diff Lab Routine Therapeutic drug monitoring 1 Occurrences starting 10/31/2023 until 10/30/2024 [employer] Comment on above: 1 Occurrences starti ng 10/31/2023 until 10/30/2024 CBC W Auto Different ial panel - Blood CBC and differential Lab Routine Missed menses , unspecified gestational age Ordered: 01/23/2024 [facility] [employer] Comment on above: Ordered: 01/23/2024 End: 04-19-2025 CBC W Auto Differential panel - Blood CBC auto differential Lab Routine Thrombocytopenia ([facility]) 1 Occurrences starting 04/19/2024 until 04/19/2025 [employer] Work Phone: Comment on above: 1 Occurrences starti ng 04/19/2024 until 04/19/2025 CHLAMYDIA TRACHOMATI S (GENITO/STI) CHLAMYDIA TRACHOMATIS (GENITO/STI) Lab Routine STD exposure Ordered: 03/17/2024 [facility] Comment on above: Ordered: 03/17/2024 Hemoglobin A1c/Hemoglobin.total in Blood Hemoglobin A1c Lab Routine Missed menses , unspecified gestational age Ordered: 01/23/2024 [facility] Comment on above: Ordered: 01/23/2024 Hepatitis B virus surface Ag [Presence] in Serum or Plasma by Immunoassay Hepatitis B surface antigen Lab Routine Missed menses , unspecified gestational age Ordered: 01/23/2024 [facility] Comment on above: Ordered: 01/23/2024 Hepatitis C virus Ab [Presence] in Serum or Plasma by Immunoassay Hepatitis C antibody Lab Routine Missed menses , unspecified gestational age Ordered: 01/23/2024 [facility] Comment on above: Ordered: 01/23/2024 HIV-1/HIV-2 antigen/antibody combination immunoassay HIV-1 and HIV-2 antibodies Lab Routine Missed menses , unspecified gestational age Ordered: 01/23/2024 [facility] Comment on above: Ordered: 01/23/2024 End: 10-30-2024 Liver panel Liver panel Lab Routine Therapeutic drug monitoring Crohn's disease of both small and large intestine with other complication ([facility]) 1 Occurrences starting 10/31/2023 until 10/30/2024 [employer] Comment on above: 1 Occurrences starti ng 10/31/2023 until 10/30/2024 End: 06-08-2024 Mycobacterium TB by Quantiferon Gold Mycobacterium TB by Quantiferon Gold Lab Routine Crohn's disease of both small and large intestine with intestinal obstruction ([facility]) 1 Occurrences starting 06/09/2023 until 06/08/2024 [employer] Work Phone: Comment on above: 1 Occurrences starti ng 06/09/2023 until 06/08/2024 Neisseria gonorrhoea e DNA [Presence] in Unspecified specimen by ROBERT with probe detection Neisseria gonorrhea DNA probe, direct Lab Routine STD exposure Ordered: 03/17/2024 [facility] Comment on above: Ordered: 03/17/2024 End: 02-07-2023 Oxygen Therapy - Maintain SpO2: 90% or greater; *FUNERAL ATTENDANT Guidelines for O2: Yes; Document: [email or web address] [email or web address]_Reference/Or ders/Respiratory%20Care% 20Guidelines/CPG%20Oxyge n%[email or web address].pdf Oxygen Therapy - Maintain SpO2: 90% or greater; *FUNERAL ATTENDANT Guidelines for O2: Yes; Document: [email or web address]/[email or web address]_Reference/Orde rs/Respiratory%20Care%20G uidelines/CPG%20Oxygen%20 2015.pdf Respiratory Care STAT Iron deficiency anemia due to chronic blood loss Iron deficiency anemia, unspecified Iron malabsorption As Needed for 1 Occurrences starting 02/06/2023 until 02/07/2023 [employer] Work Phone: Comment on above: As [...] persistent 1 Occurrences starting 02/20/2023 until 02/21/2024 [employer] Work Phone: Comment on above: 1 Occurrences starti ng 02/20/2023 until 02/21/2024 Reagin Ab [Presence] in Serum by RPR RPR Lab Routine Missed menses , unspecified gestational age Ordered: 01/23/2024 [facility] Comment on above: Ordered: 01/23/2024 Rubella antibody, IgG Rubella an tibody, IgG Lab Routine Missed menses , unspecified gestational age Ordered: 01/23/2024 [employer] Comment on above: Ordered: 01/23/2024 SURESWAB(R) ADVANCED VAGINITIS PLUS, TMA SURESWAB(R) ADVANCED VAGINITIS PLUS, TMA Pathology and Cytology Routine Vaginal discharge Ordered: 03/17/2024 [employer] Work Phone: Comment on above: Ordered: 03/17/2024 End: 02-02-2025 Thiopurine Metabs Thiopurine Metabs Lab Routine Therapeutic drug monitoring 1 Occurrences starting 02/03/2024 until 02/02/2025 [employer] Work Phone: Comment on above: 1 Occurrences starti ng 02/03/2024 until 02/02/2025 End: 10-30-2024 Thiopurine Metabs Thiopurine Metabs Lab Routine Therapeutic drug monitoring 1 Occurrences starting 10/31/2023 until 10/30/2024 [employer] Comment on above: 1 Occurrences starti ng 10/31/2023 until 10/30/2024 End: 10-30-2024 Vitamin D 25 hydroxy Vitamin D 25 hydroxy Lab Routine Crohn's disease of both small and large intestine with other complication ([facility]) 1 Occurrences starting 10/31/2023 until 10/30/2024 [employer] Comment on above: 1 Occurrences starti ng 10/31/2023 until 10/30/2024 End: 04-19-2025 Vitamin D 25 hydroxy Vitamin D 25 hydroxy Lab Routine Crohn's disease with complication, unspecified gastrointestinal tract location ([facility]) 1 Occurrences starting 04/19/2024 until 04/19/2025 [employer] Comment on above: 1 Occurrences starti ng 04/19/2024 until 04/19/2025 Payers Date Payer Category Payer Medicaid ANTH MEDICAID [facility] MEDICAID [id number] 2022-Present [address] [place] [address] [id number] 2022 Medicaid [id number] 2021 Commercial Managed C are - POS [employer] [id number] 2021 Managed Care HMO (unspecified) [employer] [id number] 2021 Private Health Insurance [employer] AETNA POS II [id number] 2021-Present [phone] [facility] [id number] [place] [id number] [id number] 1989 Unknown [id number] 2.16.840.1.245583.3.579. 2.593 1989 Unknown [id number] 2.16.840.1.948547.3.579. 2.1286 1989 Unknown [id number] 2.16.840.1.276364.3.579. 2.1286 1989 Unknown [id number] 2.16.840.1.030970.3.579. 2.1286 1989 Unknown [id number] 2.16.840.1.721922.3.579. 2.1286 1989 Unknown [id number] 2.16.840.1.228461.3.579. 2.1285 1989 Unknown [id number] 2.16.840.1.384039.3.579. 2.1285 1989 Unknown [id number] 2.16.840.1.190781.3.579. 2.1285 1989 Unknown [id number] 2.16.840.1.972726.3.579. 2.1285 1989 Unknown [id number] 2.16.840.1.350961.3.579. 2.1285 1989 Unknown [id number] 2.16.840.1.365200.3.579. 2.1285 1989 Unknown [id number] 2.16.840.1.706199.3.579. 2.1285 1989 Unknown [id number] 2.16.840.1.028479.3.579. 2.1285 1989 Unknown [id number] 2.16.840.1.407166.3.579. 2.1285 1989 Unknown [id number] 2.16.840.1.428746.3.579. 2.1285 1989 Unknown [id number] 2.16.840.1.398534.3.579. 2.1285 1989 Unknown [id number] 2.16.840.1.798410.3.579. 2.1285 1989 Unknown [id number] 2.16.840.1.480275.3.579. 2.1285 1989 Unknown [id number] 2.16.840.1.950956.3.579. 2.1285 1989 Unknown [id number] 2.16.840.1.022616.3.579. 2.1285 1989 Unknown [id number] 2.16.840.1.653886.3.579. 2.1286 1989 Unknown [id number] 2.16.840.1.221666.3.579. 2.1286 1989 Unknown [id number] 2.16.840.1.423121.3.579. 2.1286 1989 Unknown [id number] 2.16.840.1.609769.3.579. 2.1259 1989 Unknown [id number] 2.16.840.1.780920.3.579. 2.1259 1989 Unknown [id number] 2.16.840.1.555841.3.579. 2.1259 1989 Unknown [id number] 2.16.840.1.328289.3.579. 2.1259 1989 Unknown [id number] 2.16.840.1.384227.3.579. 2.1259 1989 Unknown [id number] 2.16.840.1.926286.3.579. 2.1259 1989 Unknown [id number] 2.16.840.1.981954.3.579. 2.1259 1959 Private Health Insurance [id number] Social History Date Type Detail Facility Start: 12-27-2021 End: 10-09-2022 Tobacco smoking status COIS Never smoked tobacco [facility] Start: 12-27-2021 End: 10-09-2022 Tobacco use and exposure Smokeless tobacco non-user [facility] Start: 01-23-2024 End: 03-17-2024 Alcoholic beverage intake Lifetime non-drinker (finding) [facility] Start: 02-29-2020 End: 09-15-2023 History of Social function [facility] Start: 02-29-2020 End: 09-15-2023 Tobacco use panel [facility] Start: 11-19-2023 [facility] Start: 1990 Sex assigned at Female [facility] Start: 09-12-2022 Gender identity Identifies as female gender (finding) [facility] Start: 09-12-2022 Sexual orientation Heterosexual (finding) [facility] Start: 01-31-2024 End: 04-19-2024 Alcoholic beverage intake Current non-drinker of alcohol (finding) [facility] Adolescent depressio n screening assessment 15 [facility] Start: 1990 Sex assigned at Not on file [facility] Start: 09-13-2014 Sex Female (finding) [facility] Goals Date Patient Goal Desired Activity /State Personal health goal Comment on above: Formatting of this n ote might be different from the original. Evaluation of progress towards goal: patient to discharge to home. Clinical Notes 02-06-2023 to 04-26-2024 Kimi Simmons NP - 04/26/2024 10:10 AM EDTTelephone Encounter - Sharda Montiel MD - 04/19/2024 11:21 AM EDTTelephone Encounter - Ariane Jarquin CMA - 04/19/2024 11:21 AM EDTPatient Instructions Note Date & Type Note Facility 04-26-2024 History of Present illness Narrative Reason for [...] acid (FOLVITE) 1,000 mcg, Oral, Every morning HYDROcodone-acetaminophen ([place]) 5-325 MG tablet 1 tablet, Oral, Every 6 hours PRN inFLIXimab-dyyb (Inflectra) 100 MG injection 5 mg/kg, [...] Negative. Respiratory: Negative. Cardiovascular: Negative. Gastrointestinal: Negative. Reports intermittent flares in her prior . Reports she is currently taking her prescribed medications and has been doing well at this time. Desires to discuss FMLA should her flares worsen. Genitourinary: Negative. Musculoskeletal: Negative. Skin: Negative. Neurological: [...] nursing note reviewed. Exam conducted with a hand reamer present. Vitals: Estimated body mass index is 30.65 kg/m as calculated from the following: Height as of 24: 5' 5 . Weight as of this encounter: 184 lb 3.2 oz. BP: 122/76 Patient's last menstrual period was 11/05/2023. ASSESSMENT & PLAN ICD-10-CM 1. Second trimester Z34.92 Urine dip 2. 23 weeks gestation of Z3A.23 Urine dip 3. Crohn's disease with complication, unspecified gastrointestinal tract location (CMS/HCC) K50.919 Return OB: Patient presents today for a routine obstetrics appointment. Patient is currently 24w5d . Patient states she is doing well but has complaints of being tired due to current . Patient has verbalizes frequent movement. labor precautions was discussed/given and patient was instructed to perform kick counts three times a day. Orders Placed This Encounter Procedures Urine dip Follow Up: Patient is to return to office in 3 week for routine OB appointment. She does report she has spoken to [facility] but does not yet have a scheduled appointment but will reach back out to them to schedule related to non visualized stomach during anatomy scan. Documented by Kimi Simmons NP on behalf of: Parish Valdez DO documented in this encounter [facility] 04-19-2024 Miscellaneous Notes Biologic team, please plan to administer her next infusion 1 week early, around 05/24/2024, to be followed by a subsequent dose around 06/28/2024, which would be around 6 weeks prior to her estimated delivery date. Will then plan to resume shortly after delivery (once discharged from the hospital and back home), typically 24hrs after vaginal delivery and 48hrs after a , assuming no infection. Her due date is 08/11/24, but planned delivery is 08/04/24. Ariane, please print my most recent OV note and fax it to her medical case worker, Dr. Parish Valdez DO at [facility]. Thank you. Faxed to [phone] Zymfentra 120mg/ml PA was sent to plan via REPLACED BY [facility] Schneider number: [id number] documented in this encounter [facility] 04-19-2024 Telephone encounter Note Biologic team, please plan to administer her next infusion 1 week early, around 05/24/2024, to be followed by a subsequent dose around 06/28/2024, which would be around 6 weeks prior to her estimated delivery date. Will then plan to resume shortly after delivery (once discharged from the hospital and back home), typically 24hrs after vaginal delivery and 48hrs after a , assuming no infection. Her due date is 08/11/24, but planned delivery is 08/04/24. Ariane, please print my most recent OV note and fax it to her medical case worker, Dr. Parish Valdez DO at [facility]. Thank you. [employer] 04-19-2024 Telephone encounter Note [phone] [facility] Telephone encounter Note Zymfentra 120mg/ml PA was sent to plan via REPLACED BY [facility] Schneider number: [id number] [facility] History of Present illness Narrative Infusion start time: 11:10 am Patient here for her Avsola infusion. Patient denies any recent infections or on antibiotics, open wounds, recent/future surgery, vaccinations or insurance changes. 10:50 am IV started with 22g needle to left AC by JAD Arroyo x1 attempt. Patient tolerated well. Avsola x 4 vials Lot# [id number] Exp- 09/10/2027 Time out performed prior to medication administration. Name, , medication(s) verified 1310 patient infusion complete. IV flushed with normal saline. 1313 IV discontinued, catheter intact, vitals WNL. Patient tolerated infusion well documented in this encounter [facility] 04-19-2024 History of Present illness Narrative [facility] Follow Up Visit CHIEF COMPLAINT: Chief Complaint Patient presents with Follow-up HISTORY OF PRESENT ILLNESS: 33F h/o gallstones and complicated ileocolonic Crohn's disease here for f/u. Last seen 10/2023; summary of that visit: Since her last visit she has had [...] 7, HBI = 2 c/w clnical remission. RECS: Cont current regimen w AZA and infliximab. Will update nutritional markers and cont monitoring therapeutic drug monitoring labs. Resume MVI containing iron. Interval history / Interim evaluation: Labs 01/26/2024: vitD 10, liver panel w alk-phos 29, otherwise unremarkable, BMP unremarkable, CBC unremarkable other than platelets 108, ESR nl, B12 239, CRP nl In 12/2023, she reached out notifying us that she was and enquiring as to the safety of continuing her medications. She was advised that based on extensive research, that literature shows that the increased risk to the from uncontrolled IBD outweighs the risk to the mother and/or fetus of continuing biologic therapy and that I recommend continuing her treatment to maintain remission of her Crohn's. She was advised that if her disease appears to be well-controlled, we could consider stopping the AZA and continuing infliximab monotherapy if she can ensure compliance and not missing any doses. Otherwise, better to cont AZA at the very least given h/o missing infusions and noncompliance in the past. Her estimated due date is 08/11/2024. Recent labs show significant vitD deficiency and some thrombocytopenia, otherwise stable. She was advised to begin high-dose vitD weekly and then to start 5000 units daily after that and to repeat CBC in 1 month. Today, she notes having some abd pain yesterday, which she feels happens 1-2 days prior to her infusions. She also notes immediate relief w her AZA. She's having 2-3 BMs/d, BSS 5-6. She notes when doing well, she has 1-2 BMs/d, BSS 3-4. No bleeding. She remains on IFX 5mg/kg q6wks + AZA 150mg/d and folic acid 1mg/d. She never took the high dose vitD, but believes she is taking some daily dose (unclear what dose). No longer taking B12. She is on a vitamin. She has not received her HAV vaccine yet. SIBDQ = 7, HBI = 0 c/w clnical remission. Short IBD Questionnaire (SIBDQ): Short IBD Questionnaire How often has the feeling of fatigue or of being tired and worn out been a problem for you during the last 2 weeks? : Hardly any of the time How often during the [...] been troubled by pain in the abdomen?: Hardly any of the time How often during the [...] Index (Crohn's): Modified HBI General well being: very well Abdominal pain: none # Liquid stools per day: 0 Extraintestinal Manifestations Arthralgias (Joint Pain): none Uveitis (Redness of the Eye, Floats, Blurred Vision, Photophobia, Eye Pain, Irregular Pupil): none Eythema Nodosum (tender lumbs usuallly located in the front of the legs below the knee): none Pyoderma Gangrenosum (Leg Ulcers): none Aphthous Ulcers (Mouth Sores) or Stomatitis: none Anal Fissures: none Newly Discovered Fistula: none Abscess: None HBI Total Score: 0 Remission = < 5; Mild disease = 5-7; Moderate disease = 8-15; Severe disease = > 16 REVIEW OF SYSTEMS: See HPI, otherwise ROS unremarkable ALLERGIES: Zoloft [sertraline] Current Medications: Current Outpatient Medications: azaTHIOprine (IMURAN) 50 mg tablet, Take 3 tablets (150 mg total) by mouth in the morning., Disp: 270 tablet, Rfl: 1 ondansetron (ZOFRAN) 4 mg tablet, Take 1 tablet (4 mg total) by mouth every 8 (eight) hours as needed for nausea or vomiting., Disp: , Rfl: vit no.124/iron/folic ( VITAMIN ORAL), Take 1 tablet by mouth in the morning., Disp: , Rfl: cholecalciferol (VITAMIN D3) 50,000 units capsule, Take 1 capsule (50,000 Units total) by mouth once a week. (Patient not taking: Reported on 04/19/2024), Disp: 8 capsule, Rfl: 0 citalopram (CeleXA) 20 mg tablet, Take 1.5 tablets (30 mg total) by mouth in the morning. (Patient not taking: Reported on 04/19/2024), Disp: 30 tablet, Rfl: 2 folic acid (FOLVITE) 1 mg tablet, Take 1 tablet (1 mg total) by mouth in the morning. (Patient not taking: Reported on 04/19/2024), Disp: 90 tablet, Rfl: 2 inFLIXimab (REMICADE) 10 mg/mL injection, Infuse 5 mg/kg into a venous catheter See Admin Instructions. Every 6 weeks (Patient not taking: Reported on 04/19/2024), Disp: , Rfl: inFLIXimab-axxq (AVSOLA) 100 mg injection, Infuse 5 mg/kg into a venous catheter every 6 (six) weeks. (Patient not taking: Reported on 04/19/2024), Disp: , Rfl: inFLIXimab-dyyb (INFLECTRA) 100 mg injection, Infuse 5 mg/kg into a venous catheter once Indications: Crohn's disease. Every 6 weeks (Patient not taking: Reported on 04/19/2024), Disp: , Rfl: No current facility-administered medications for this visit. Facility-Administered Medications Ordered in Other Visits: inFLIXimab-axxq (AVSOLA) 5 mg/kg = 400 mg in sodium chloride 0.9 % 250 mL IVPB, 5 mg/kg, intravenous, Once, Sharda Montiel MD sodium chloride 0.9 % infusion, 25 mL/hr, intravenous, Continuous PRN, Sharda Montiel MD I reviewed and reconciled this patient's medication [...] obstruction (CMS-HCC) 10/17/2017 Chronic diarrhea Colon stricture ([facility]) 04/02/2018 Crohn's colitis (CMS-HCC) Crohn's disease ([facility]) Crohn's disease of both small and large intestine with intestinal obstruction (CMS-HCC) 03/03/2018 Current chronic use of systemic steroids 03/03/2018 Depression Diarrhea 10/17/2017 Added automatically from request for surgery [id number] Difficulty sleeping 01/13/2019 Gall stones History of [...] 10/21/2017 Performed by Sharda Montiel MD at [facility] COLONOSCOPY w/ Bx's & polypectomy N/A 10/08/2021 Performed by Sharda Montiel MD at [facility] EGD N/A 04/02/2018 Performed by Darshana Rae MD at [facility] LAPAROSCOPIC ILEOCECECTOMY, TAKE DOWN OF ILEODUDENAL FISTULA, DRAINAGE OF RETROPERITONEAL ABSCESS, OMENTAL PEDICLE FLAP N/A 04/02/2018 Performed by Jonathan Bautista MD at [facility] SOCIAL HISTORY: Social History Tobacco Use Smoking status: Never Smokeless tobacco: Never Vaping Use Vaping status: Never Used Substance Use Topics Alcohol use: No Drug use: No PHYSICAL EXAM: BP 140/86 (BP Site: Left Arm, BP Postition: Sitting) Ht 165.1 cm (5' 5 ) Wt 83.5 kg (184 lb) BMI 30.62 kg/m Body mass index is 30.62 kg/m . GEN: alert and oriented x3, [...] CBC: Lab Results Component Value Date WBC 7.2 01/26/2024 HGB 12.8 01/26/2024 HCT 38.5 01/26/2024 MCV 98 01/26/2024 RDW 13.7 01/26/2024 PLT 108 (L) 01/26/2024 CMP: Lab Results Component Value Date K 3.8 01/26/2024 CL 104 01/26/2024 CO2 21 (L) 01/26/2024 BUN 6 01/26/2024 GLU 73 01/26/2024 GLU 126 (H) 12/26/2022 Iron Studies: Lab Results Component Value Date IRON 74 12/01/2023 TIBC 344 12/01/2023 FERRITIN 12 12/01/2023 PT/INR: Lab Results Component Value Date INR 1.0 07/02/2019 PROTIME 11.4 07/02/2019 TSH: Lab Results Component Value Date TSH 0.64 11/17/2022 VITAMIN B12: Lab Results Component Value Date [id number] 239 01/26/2024 FOLATE: Lab Results Component Value Date FOLATE 18.8 08/02/2021 DIAGNOSTIC STUDIES REVIEWED: As noted in the HPI Labs 01/26/2024: vitD 10, liver panel w alk-phos 29, otherwise unremarkable, BMP unremarkable, CBC unremarkable other than platelets 108, ESR nl, B12 239, CRP nl Labs 08/04/23: CBC unremarkable, iron studies w [...] a hysterectomy has been advised by her asphalt patcher, but that she was not ready to proceed. 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 She noted she was going to [...] 1 dose; had to stop after this 2/2 cost with deductible resetting after 02/2020. -- [...] still [place]. [place] [address] units q.week x8 and then back to [...] wks and AZA 150mg/d + folic acid. - 10/2023: Since her last visit she has had [...] 7, HBI = 2 c/w clnical remission. RECS: Cont current regimen w AZA and infliximab. Will update nutritional markers and cont monitoring therapeutic drug monitoring labs. Resume MVI containing iron. Patient Care Team: Hilary Aviles APRN-LUIGI as PCP - General (Family Medicine) Jonathan Bautista MD as Referring Physician (General Surgery) Sharda Montiel MD as Consulting Physician (Gastroenterology) Mj Pizarro MD as Consulting Physician (Hematology) ASSESSMENT AND PLAN: 33F h/o gallstones and complicated ileocolonic Crohn's disease [...] 150mg/d, IFX 5mg/kg q6 wks, folic acid 1mg/d; vitamin --> In 12/2023, she reached out notifying us that she was and enquiring as to the safety of continuing her medications. She was advised that based on extensive research, that literature shows that the increased risk to the from uncontrolled IBD outweighs the risk to the mother and/or fetus of continuing biologic therapy and that I recommend continuing her treatment to maintain remission of her Crohn's. She was advised that if her disease appears to be well-controlled, we could consider stopping the AZA and continuing infliximab monotherapy if she can ensure compliance and not missing any doses. Otherwise, better to cont AZA at the very least given h/o missing infusions and noncompliance in the past. Her estimated due date is 08/11/2024. Recent labs show significant vitD deficiency and some thrombocytopenia, otherwise stable. She was advised to begin high-dose vitD weekly and then to start 5000 units daily after that and to repeat CBC in 1 month. Today, she notes having some abd pain yesterday, which she feels happens 1-2 days prior to her infusions. She also notes immediate relief w her AZA. She's having 2-3 BMs/d, BSS 5-6. She notes when doing well, she has 1-2 BMs/d, BSS 3-4. No bleeding. She remains on IFX 5mg/kg q6wks + AZA 150mg/d and folic acid 1mg/d. She never took the high dose vitD, but believes she is taking some daily dose (unclear what dose). No longer taking B12. She is on a vitamin. She has not received her HAV vaccine yet. SIBDQ = 7, HBI = 0 c/w clnical remission. -- cont current regimen; due for infusion today -- will cont to monitor nutritional and inflammatory markers q6mo; due 07/2024 - will update vitD, B12, and CBC today due to non-compliance w supplementation and to f/u on new thrombocytopenia noted on last set of labs -- needs ongoing therapeutic drug monitoring labs while on AZA, q6mo (CBC, liver panel); due 07/2024 - annual thiopurine metabolite level while on AZA; due now; ordered - while , precautions should be taken to assess for intrahepatic cholestasis by measuring liver enzymes Given her , I spoke to the patient about the risks versus benefits of continuing versus stopping her biologic during her . I informed her that the literature shows increased risk to the due to a flare of IBD that typically outweighs the risk to the mother and/or fetus of continuing biologic therapy. Increased IBD activity adversely affects outcomes and stabilization of disease and effective maintenance therapy throughout is important. Based on the ongoing PIANO study, it has been demonstrated that IBD medication exposure well into the 3rd trimester in patients in sustained remission was not associated with an increase in congenital anomalies, spontaneous abortions, intrauterine growth restriction, or low weight. Recent data from the ongoing study shows that it is safe for infants to receive all inactive vaccines, as well as the live rotavirus vaccine, on schedule regardless of in utero or breast milk exposure to IBD medications. Reassuringly, the offspring of PIANO participants who had in utero exposure to biologics and immunomodulators didn t have any developmental delay, compared with unexposed babies. As such, we agreed on limiting exposure to the baby by planning to administer her final dose sometime around 6 weeks prior to her planned delivery date of 08/04/24, to aim for delivery for when the drug would be a trough levels and to resume the medications soon after delivery. It should also be noted that the implications for seem to be clinically Plan: 1.Will plan to administer her next infusion 1 week early, around 05/24/2024, to be followed by a subsequent dose around 06/28/2024, which would be around 6 weeks prior to her estimated delivery date 2. Will plan to resume shortly after delivery (once discharged from the hospital and back home), typically 24hrs after vaginal delivery and 48hrs after a , assuming no infection. Her due date is 08/11/24, but planned delivery is 08/04/24. 3. She can plan to breastfeed without concern 4. Infants may receive all inactive vaccines, as well as the live rotavirus vaccine, on schedule regardless of in utero or breast milk exposure to IBD medications. However, infant's exposed to biologics in utero should avoid the BCG vaccine until 6 months of age. These recommendations are in accordance with the findings of the ongoing PIANO study, The [employer] Consensus Statements for the Management of Inflammatory Bowel Disease in , and the clinical care pathway released by the AGA. - AGA clinical practice update on -related gastrointestinal and liver disease: expert review (Gastroenterology. 2023;167(5):7429-0561). - Johnathan Farr, Rey C, Ama N, et al. Inflammatory bowel disease in clinical care pathway: a report from the [employer] gastro[employer] [facility] project working group. Gastroenterology. 2019;156(5):1254-2807. - Johnathan Farr, Yady RA, Lobito CD. Drug Safety and Risk of Adverse Outcomes for Patients With Inflammatory Bowel Disease. Gastroenterology. 2017;152(2):451-462.e2. - Gastroenterology. 2016 Mar;150[3]:734-57 Risks of IM/biologics We spoke today about [...] molecule Janus kinase (RANGEL) inhibitor, tofacitinib (Xeljanz). She agrees to continue as above. Preventative Health Maintenance: -- Vaccines and pre-biologic testing: TB QuantiFERON gold neg in 11/2017; TPMT enzyme activity and genetics wnl on labs 10/2017; HBV immune per labs 10/2017, but HAV non-immune; again advised to proceed w HAV vaccination; will [...] and strongly recommended annual f/u with a fabric normalizer and regular use of skin protection -- Cervical cancer prevention: discussed importance of annual pap smears -- VitD: will aim to maintain > 32ng/mL given evidence of multiple benefits of vitamin-D supplementation including bone health, anti-cancer properties, as well as implications for both innate and adaptive immunity; believes she is taking supp, but unclear what dose; will update levels -- DEXA: no strong risk factors for bone disease -- Tobacco cessation: n/a, non-smoker -- Nutrition: known chronic ACE; see below; will monitor nutritional markers periodically 2. Chronic iron deficiency anemia: she has a longstanding h/o normocytic anemia w baseline Hgb ranging from 9-11 w new microcytosis since 06/2019 attributed to menorrhagia and malabsorption from her Crohn's; she f/u hem/onc and is s/p IV iron, but was then lost to f/u after 2019 and has not seen them since. She was previously on PO iron + vitC daily due to forgetfulness w MWF dosing, but has not been taking these. Recent labs w/o anemia. --> As above in #1. -- proceed w recently ordered iron studies per hematology -- will monitor periodically; recommend at least taking MVI for women that contains iron OV in 3 mo w me Thank you for allowing me to participate in this pleasant patient s care. Total time spent was 66 minutes: Preparing to see the patient (e.g., review of tests) Obtaining and/or reviewing separately obtained history Performing a medically appropriate examination and/or evaluation Counseling and educating the patient/family/caregiver Ordering medications, tests, or procedures Referring and communicating with other health day care supervisor (not separately reported) Documenting clinical information in [...] for your understanding. Camila Montiel MD, MPH [facility] [place] [address] PH: [phone] Juan Luis was seen today for follow-up. Diagnoses and all orders for this visit: Thrombocytopenia ([facility]) - CBC auto differential; Future Crohn's disease with complication, unspecified gastrointestinal tract location ([facility]) - Vitamin D 25 hydroxy; Future - Vitamin B12; Future documented in this encounter [facility] 04-19-2024 Instructions Sharda Montiel MD - 04/19/2024 10:00 AM EDT Labs - from today, 02/02/25, and 01/27/25 I recommend hepatitis A vaccines with your PCP, the health department, or any pharmacy; this is typically a series of 2 injections 3. geophysical support specialist high dose vitamin D from the pharmacy Preventative Health Maintenance for Crohn's and ulcerative colitis -- Skin cancer prevention: I recommend annual follow up with a fabric normalizer and regular use of skin protection given the increased risk of skin cancer, especially in patients on immunomodulator (Imuran / azathioprine / 6MP) or biologic medications (Remicade, Humira, Enyvio) -- Cervical cancer prevention: I recommend annual follow up with your medical case worker doctor with annual pap smears -- Tobacco [...] would be interested in meeting with a feed mill tender please let me or your family doctor [...] the role of diet in IBD: [email or web address] documented in this encounter [facility] 04-14-2024 History of Present illness Narrative Reason [...] nursing note reviewed. Exam conducted with a hand reamer present. Vitals: Estimated body mass index is [...] Parish Valdez DO documented in this encounter [facility] 03-17-2024 History of Present illness Narrative Reason [...] obtained without difficulty and patient was given [facility] order to have obtained. Orders Placed This Encounter Procedures US OB 14+ weeks anatomy scan CHLAMYDIA TRACHOMATIS (GENITO/STI) Neisseria gonorrhea DNA probe, direct Alpha fetoprotein, maternal Follow Up: Patient is to return to our office in 4 weeks for routine OB appointment Documented by SIMI Frazier on behalf of: SIMI Frazier documented in this encounter [facility] 03-08-2024 History of Present illness Narrative Infusion start time: 1040 Patient here for Avsola infusion. Patient denies any recent infections or on antibiotics, open wounds, recent/future surgery, vaccinations or insurance changes. IV started with 22g needle to left forearm by Yaquelin Barba RN x1 attempt. Patient tolerated well. Avsola Lot# [id number] 2vials Exp- 09/10/2027 [id number] 2 vials Exp08/10/2027 Time out performed prior to medication administration. Name, , medication(s) verified 10:40 am Time out performed with Yaquelin STREET. Avsola to be mixed and administered to patient per current treatment plan orders 1240 patient infusion complete. IV flushed with 10 ml normal saline. IV discontinued, catheter intact, vitals WNL. Patient tolerated infusion well documented in this encounter [facility] 02-18-2024 History of Present illness Narrative Reason [...] nursing note reviewed. Exam conducted with a hand reamer present. Vitals: Estimated body mass index is [...] or undercooked meat, and [facility] Patient has been consulted regarding any [...] Parish Valdez DO documented in this encounter [facility] 01-23-2024 History of Present illness Narrative Reason [...] Diagnosis Date Acute Crohn's disease with complication (CMS/[facility]) At standard risk for fall [...] or undercooked meat, and [facility]. Patient has also been advised to [...] Veronica Klein LPN documented in this encounter [facility] 12-17-[address] Montiel, Patient called [...] send a letter to the family doctor/PCP, Sewer Cleaner, and applied psychology chair advising against the use of live vaccines for the 1st 6 months of the baby's life and to monitor the baby closely for any signs of infection. Please send her the following as well: [email or web address] [email or web address]/[email or web address]-zlwmy-[email or web address]-ho hy-[email or web address]-ty-[email or web address]-[email or web address] -[email or web address]-gxe-[email or web address] I recommend an OV w me in 02/2024 or 03/2024 Please disregard notes below. Summary These recommendations are in accordance with the findings of the ongoing PIANO study, The [place] Consensus Statements for the Management of Inflammatory [...] clinical care pathway: a report from the [employer] [facility] project working group. Gastroenterology. 2019;156(5):2909-2131. Spoke with patient regarding recommendations, sent via [employer]. Will call patient back when March schedule is out, she needs Mondays. documented in this encounter [facility] 12-17-[address] Montiel, Patient called stating she took a urine test this past Friday and it was positive. She receives Inflectra 400 mg every 6 weeks for her Crohn's. She also takes Imuran 150 mg po daily. Ilesha is inquiring if she can continue taking her Imuran and Inflectra infusions? Please advise, thank you [facility] 12-17-2023 Telephone encounter Note Please let her [...] send a letter to the family doctor/PCP, Sewer Cleaner, and applied psychology chair advising against the use of live vaccines for the 1st 6 months of the baby's life and to monitor the baby closely for any signs of infection. Please send her the following as well: [email or web address] [email or web address]/blog/npvpa-ibgqb-[email or web address]-ho dg-ngi-palckjr-dt-gbqjcjlptnf-[email or web address] -akftxor-zor-okju I recommend an OV w me in 02/2024 or 03/2024 Please disregard notes below. Summary These recommendations are in accordance with the findings of the ongoing PIANO study, The [place] Consensus Statements for the Management of Inflammatory [...] clinical care pathway: a report from the [employer] [facility] project working group. Gastroenterology. 2019;156(5):9740-6690. [facility] 12-17-2023 Telephone encounter Note Spoke with patient regarding recommendations, sent via [employer]. Will call patient back when March schedule is out, she needs Mondays. [facility] 12-12-2023 History of Present illness Narrative Infusion start time: 10:50 am Patient here for Inflectra infusion. Patient denies any recent infections or on antibiotics, open wounds, recent/future surgery, vaccinations or insurance changes. 10:30 am IV started with 22g needle to right hand by JAD Arroyo x1 attempt. Patient tolerated well. Inflectra x 4 vials Lot# [id number] Exp- 04/09/2028 Time out performed prior to medication administration. Name, , medication(s) verified 11:50 am patient infusion complete. IV flushed with 10 ml normal saline. IV discontinued, catheter intact, vitals WNL. Patient tolerated infusion well documented in this encounter [facility] 12-01-2023 History of Present illness Narrative Images from the original note were not included. [facility] [address] [place] [id number] 12/01/2023 Chief Complaint Patient presents with [...] small and large intestine with intestinal obstruction ([facility]) Other Visit Diagnoses Iron deficiency - Primary [...] procedures Referring and communicating with other health day care supervisor (not separately reported) Documenting clinical information in the electronic or other health record Independently interpreting results (not separately reported) and communicating results to the patient/family/caregiver Care coordination (not separately reported) ---- Please note that portions of this note may have been generated using voice recognition M*Modal dictation software. Although every effort was made to ensure the accuracy of any automated transcriptions, some errors may have occurred. TERA Carbajal 12/01/23 1502 documented in this encounter [facility] 12-01-2023 Instructions TERA Carbajal - 12/01/2023 2:30 PM EDT Pending labs If iron is low, will order Injectafer IV If iron is low, will repeat labs in 3 months CBC-d iron panel ferritin If iron is normal, just follow up yearly as below Follow up yearly with labs same as above documented in this encounter [facility] 10-31-2023 History of Present illness Narrative IV Infusion start time: 944. Patient here for Inflectra infusion. Patient denies any recent infections or on antibiotics, open wounds, recent/future surgery, vaccinations or insurance changes. IV started with 22g needle to left hand by JAD Arroyo x1 attempt. Patient tolerated well. Inflectra x 4 vials Lot# [id number] Exp- [id number] Time out performed prior to medication administration. Name, , medication(s) verified 11:13 am patient infusion complete. IV discontinued, catheter intact, vitals WNL. Patient tolerated infusion well documented in this encounter [facility] 10-31-2023 History of Present illness Narrative [facility] Follow Up Visit [...] obstruction (CMS-HCC) 10/17/2017 Chronic diarrhea Colon stricture ([facility]) 04/02/2018 Crohn's colitis ([facility]) Crohn's disease ([facility]) Crohn's disease of both small and large intestine with intestinal obstruction ([facility]) 03/03/2018 Current chronic use of systemic steroids 03/03/2018 Depression Diarrhea 10/17/2017 Added automatically from request for surgery [id number] Difficulty sleeping 01/13/2019 Gall stones History of [...] 10/21/2017 Performed by Sharda Montiel MD at [facility] COLONOSCOPY w/ Bx's & polypectomy N/A 10/08/2021 Performed by Sharda Montiel MD at [facility] EGD N/A 04/02/2018 Performed by Darshnaa Rae MD at [facility] LAPAROSCOPIC ILEOCECECTOMY, TAKE DOWN OF ILEODUDENAL FISTULA, DRAINAGE OF RETROPERITONEAL ABSCESS, OMENTAL PEDICLE FLAP N/A 04/02/2018 Performed by Jonathan Bautista MD at [facility] SOCIAL HISTORY: Social History Tobacco Use Smoking [...] VITAMIN B12: Lab Results Component Value Date [id number] 1,378 (H) 08/02/2021 FOLATE: Lab Results Component [...] a hysterectomy has been advised by her asphalt patcher, but that she was not ready to proceed. 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 She noted she was going to [...] 1 dose; had to stop after this 2/2 cost with deductible resetting after 02/2020. -- [...] still [place]. [place] [address] units q.week x8 and then back to [...] and strongly recommended annual f/u with a fabric normalizer and regular use of skin protection -- [...] procedures Referring and communicating with other health day care supervisor (not separately reported) Documenting clinical information in [...] for your understanding. Camila Montiel MD, [place] [address] PH: [phone] Juan Luis was seen today for follow-up. [...] in the morning. documented in this encounter [facility] 10-31-2023 Instructions Sharda Montiel MD - 10/31/2023 [...] I recommend annual follow up with a fabric normalizer and regular use of skin protection given the increased risk of skin cancer, especially in patients on immunomodulator (Imuran / azathioprine / 6MP) or biologic medications (Remicade, Humira, Enyvio) -- Cervical cancer prevention: I recommend annual follow up with your medical case worker doctor with annual pap smears -- Tobacco [...] would be interested in meeting with a feed mill tender please let me or your family doctor [...] [email or web address] documented in this encounter [facility] 09-17-2023 History of Present illness Narrative Subjective [...] regarding her care. She is currently at [facility]. She is in a vegetative state. [...] of major depressive disorder without prior episode ([facility]) - citalopram (CeleXA) 20 mg tablet; Take 1.5 tablets (30 mg total) by mouth in the morning. Crohn's disease of both small and large intestine with intestinal obstruction ([facility]) TERA Church 09/17/23 1443 documented in this encounter [facility] 09-15-2023 Miscellaneous Notes Refill infusion orders received; approved for now. Must make 10/31/23 OV or can no longer receive infusions here until she is seen. Tried to call patient, busy signal. Sent MyChart message. Patient called. Updated. She verbalized understanding Thank You documented in this encounter [facility] 09-15-2023 Telephone encounter Note Refill infusion orders received; approved for now. Must make 10/31/23 OV or can no longer receive infusions here until she is seen. [facility] 09-15-2023 Telephone encounter Note Tried to call patient, busy signal. Sent [employer] message. [facility] 09-15-2023 Telephone encounter Note Patient called. Updated. She verbalized understanding Thank You [facility] 09-15-2023 History of Present illness Narrative IV Infusion start time: 10:30 am Patient here for Inflectra infusion. Patient denies any recent infections or on antibiotics, open wounds, recent/future surgery, vaccinations or insurance changes. IV started with 22g needle to right AC by JAD Arroyo x1 attempt. Patient tolerated well. Inflectra x 4 vials Lot# [id number] Exp- [id number] Time out performed prior to medication administration. Name, , medication(s) verified 12:10 pm patient infusion complete. IV discontinued, catheter intact, vitals WNL. Patient tolerated infusion well documented in this encounter [facility] 09-03-2023 Miscellaneous Notes Patient presented to front desk person window and paid for FMLA today. FMLA faxed. documented in this encounter [facility] 09-03-2023 Telephone encounter Note Patient presented to front desk person window and paid for FMLA today. FMLA faxed. [facility] 09-03-2023 History of Present illness Narrative Video Visit via Real-time Synchronous Audiovisual Provider Location: [facility] [address] [place] [phone] Patient Location: Patient's home Video Visit Consent [...] that there are some limitations compared to cmym-zw-mlwi evaluations. The patient consented to the presence [...] start crying, when asked about her mother. is having difficulty sleeping, although is very fatigued. She was seen in this office on August 20, 2023, and started on Celexa. She has an office visit scheduled for 09/17/2023. She denies homicidal or suicidal thoughts. Appetite is decreased. initially did not eat for 72 hours, when heard about her mother's condition. Has good family support. Timed visit of 14 minutes DX: Depression Continue Celexa FMLA/Disability paperwork completed Keep follow up appt on 09/17/2023 for depression TERA Church 09/03/23 1308 documented in this encounter [facility] 08-20-2023 History of Present illness Narrative Subjective [...] mouth in the morning. TERA Church 08/20/23 1338 documented in this encounter [facility] 08-04-2023 History of Present illness Narrative IV Infusion start time: 1318. Patient here for Inflectra infusion. Patient denies any recent infections or on antibiotics, open wounds, recent/future surgery, vaccinations or insurance changes. IV started with 22g needle to left AC by JAD Arroyo x1 attempt. Patient tolerated well. Inflectra x 4 vials Lot# [id number] Exp- [id number] Time out performed prior to medication administration. [...] of info given. [facility]18[facility]23 Miscellaneous Notes Patient has missed the following appointments: 06/17/23 06/10/23 04/14/23 06/17/22 11/10/20 See other note for follow up [facility]23 Telephone encounter Note Patient has missed the following appointments: 06/17/23 06/10/23 04/14/23 06/17/22 11/10/20 [facility] 06-18-2023 Telephone encounter Note See other note for follow up [facility] 06-10-2023 Miscellaneous Notes SANIYA Cheatham and [...] 06/10/23). No show policy letter sent via [employer] and certified mail. documented in this encounter [facility] 06-10-2023 Telephone encounter Note SANIYA Cheatham and Dr. Montiel, Patient was scheduled today for her Inflectra infusion; was a NO SHOW. She also no showed 04/14/23 Call placed to patient with no answer. Message left for patient to call office back in regards to rescheduling her infusion. [facility] 06-10-2023 Telephone encounter Note Reviewing the chart it appears she has had multiple no shows even prior to this. Please send no-show / late cancellation fee notice and remind her of the no-show policy and that we are tracking this information. If she no-shows again, she may be discharged from the practice per office policy. Thank you. [facility] 06-10-2023 Telephone encounter Note Patient called and rescheduled 06/18/23 [facility] 06-10-2023 Telephone encounter Note Chaparrita, Patient NO SHOWED for her OV yesterday and did not come to her rescheduled infusion today (she NO SHOWED 06/10/23). [facility] 06-10-2023 Telephone encounter Note No show policy letter sent via [employer] and certified mail. [facility] 04-21-2023 Miscellaneous Notes Due for OV [...] at 10:30 am documented in this encounter [facility] 04-21-2023 Telephone encounter Note Due for OV [facility] 04-21-2023 Telephone encounter Note There is nothing available for a recheck OV , can we use a new patient slot? [facility] 04-21-2023 Telephone encounter Note Yes that's ok [facility] 04-21-2023 Telephone encounter Note Left message for patient to call and schedule. [facility] 04-21-2023 Telephone encounter Note Message left for patient to call back. [facility] 04-21-2023 Telephone encounter Note Patient is scheduled with Meaghan on June 16 at 11:15 am. Infusion is scheduled on June 09 at 10:30 am [facility] 04-21-2023 History of Present illness Narrative 1020 am Patient here for Inflectra infusion. Patient denies any recent infections, open wounds, recent/future surgery, or insurance changes . IV started with 22g needle to right hand by raf street x 1 attempt. Patient tolerated well. Inflectra x 4 vials Lot #[id number] Exp date 12/11/2027 Time out performed with Raf Delatorre RN. 400 mg of Inflectra to be mixed and administered to patient per current treatment plan orders. 1305 patient infusion complete. IV discontinued, catheter intact, vitals WNL. Patient tolerated infusion well documented in this encounter [facility] 04-14-2023 Miscellaneous Notes Patient missed the visit. RN called patient and RN rescheduled patient for 04/21/2023. [facility] 04-14-2023 Telephone encounter Note Patient missed the visit. RN called patient and RN rescheduled patient for 04/21/2023. [facility] 03-31-2023 Miscellaneous Notes RN was told that patient is calling regarding her insurance. The phone call was then transferred back to the infusion room. Patient states she lost her secondary insurance and wanted to know to what the amount she will be responsible for. RN informed patient to call her insurance company to find out that information. documented in this encounter [facility] 03-31-2023 Telephone encounter Note RN was told that patient is calling regarding her insurance. The phone call was then transferred back to the infusion room. Patient states she lost her secondary insurance and wanted to know to what the amount she will be responsible for. RN informed patient to call her insurance company to find out that information. [facility] 02-20-2023 History of Present illness Narrative Images from the original note were not included. [address] [place] [id number] Patient: Juan Luis Storey Date of : [...] morning. LYNDSEY ANDERS MD Family Medicine Physician [facility] Medicine / [facility] 02/20/23 This note was completed with voice recognition software. The document was reviewed for errors however some may still be present. Please do not hesitate to contact/[facility] the author to verify any questions/concerns. documented in this encounter [facility] 02-17-2023 History of Present illness Narrative 1145 Patient here for Inflectra infusion. Patient denies any recent infections, open wounds, recent/future surgery, or insurance changes . Site cleansed with alcohol. IV started with 22g needle by Yaquelin Barba RN in right hand. Patient tolerated well. Lot # [id number] Exp 07/11/27 1422 patient infusion complete. IV discontinued at 1422. Patient tolerated infusion well. documented in this encounter [facility] 02-06-2023 History of Present illness Narrative [...] in stable condition. documented in this encounter [facility] Evaluation note Diagnosis Missed menses , unspecified gestational age Encounter for supervision of normal first in first trimester headache in first trimester documented in this encounter [facility] Healthcare[facility]* Diagnosis Therapeutic drug monitoring- Primary Encounter for therapeutic drug monitoring [facility] Diagnosis Second trimester state, incidental 15 weeks gestation of H/O oligohydramnios in prior , currently documented in this encounter [facility] HealthcareEvaluation note* Diagnosis Crohn's disease of both small and large intestine with intestinal obstruction (CMS-HCC)- Primary documented in this encounter [facility]* Diagnosis Second trimester state, incidental 19 weeks gestation of Vaginal discharge Leukorrhea, not specified as infective STD exposure Screening, , for anatomic survey Encounter for anatomic survey documented in this encounter [facility] HealthcareEvaluation note* Diagnosis 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 deficiency anemia, unspecified Iron malabsorption Other specified intestinal malabsorption [facility] Diagnosis Crohn's disease of both small and large intestine with intestinal obstruction (CMS-HCC)- Primary documented in this encounter [facility]* Diagnosis Crohn's disease of both small and large intestine with intestinal obstruction (CMS-HCC)- Primary documented in this encounter [facility]* Diagnosis Reactive airway disease with acute exacerbation, unspecified asthma severity, unspecified whether persistent- Primary Shortness of breath COVID-19 Sinusitis, unspecified chronicity, unspecified location documented in this encounter [facility]* Diagnosis Crohn's disease of both small and large intestine with intestinal obstruction (CMS-HCC)- Primary documented in this encounter [facility]* Diagnosis Anxiety- Primary Anxiety state, unspecified documented in this encounter [facility]* Diagnosis Crohn's disease of both small and large intestine with intestinal obstruction (CMS-HCC)- Primary documented in this encounter [facility]* Diagnosis Reactive depression- Primary documented in this encounter [facility]* Diagnosis Crohn's disease of both small and large intestine with intestinal obstruction (CMS-HCC)- Primary documented in this encounter [facility]* Diagnosis Current moderate episode of major depressive disorder without prior episode (CMS-HCC)- Primary Crohn's disease of both small and large intestine with intestinal obstruction (CMS-HCC) documented in this encounter [facility]* Diagnosis Therapeutic drug monitoring- Primary Encounter for therapeutic drug monitoring Crohn's disease of both small and large intestine with other complication (CMS-HCC) documented in this encounter [facility]* Diagnosis Crohn's disease of both small and large intestine with intestinal obstruction (CMS-HCC)- Primary documented in this encounter [facility]* Diagnosis Iron deficiency- [...] deficiency anemia, unspecified documented in this encounter [facility]* Diagnosis Crohn's disease of both small and large intestine with intestinal obstruction (CMS-HCC)- Primary [facility] Diagnosis 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 Other specified intestinal malabsorption Iron deficiency anemia, unspecified [facility] Diagnosis Diabetes mellitus screening Screening for diabetes mellitus Second trimester state, incidental 23 weeks gestation of documented in this encounter [facility] HealthcareEvaluation note* Diagnosis Thrombocytopenia (CMS-HCC)- Primary Unspecified thrombocytopenia Crohn's disease with complication, unspecified gastrointestinal tract location (CMS-HCC) documented in this encounter [facility]* Diagnosis Crohn's disease of colon with other complication (CMS-HCC)- Primary documented in this encounter [facility]* Diagnosis Ulcerative colitis with other complication, unspecified location (CMS-HCC)- Primary documented in this encounter [facility]* Diagnosis Second trimester state, incidental 23 weeks gestation of Crohn's disease with complication, unspecified gastrointestinal tract location (CMS/HCC) [facility]ructionsNot on filedocumented in this encounter[facility] SystemInstructionsNot on filedocumented in this encounter[facility] SystemInstructionsNot on filedocumented in this encounterPro[facility] SystemInstructionsNot on filedocumented in this encounterPro[facility] System InstructionsNot on filedocumented in this encounter[facility] System InstructionsNot on filedocumented in this encounter[facility] System InstructionsNot on filedocumented in this [facility] InstructionsNot on filedocumented in this encounterAd[facility] Instructions* Attachments The following attachments cannot be sent through Care Everywhere. * Anxiety Discharge Instructions, Adult (Bahamian) documented in this encounter[facility] SystemInstructionsNot on file documented [facility] SystemInstructionsNot on file documented in [facility] SystemInstructionsNot on file documented in [facility] SystemInstructions* Attachments The following attachments cannot be sent through Care Everywhere. * Depression (Bahamian) documented in this encounter[facility] SystemInstructionsNot on file documented in this encounter[facility] SystemInstructionsNot on file documented in this encounter[facility] System Summary Purpose Family History No Family [...] section and content) DATE CREATED AUTHOR 08/05/2017 [facility] DATE CREATED AUTHOR AUTHOR'S ORGANIZ ATION 06/26/2022 [facility] DATE CREATED AUTHOR AUTHOR'S ORGANIZ ATION 09/19/2023 [facility] DATE CREATED AUTHOR AUTHOR'S ORGANIZ ATION 02/03/2024 [facility] DATE CREATED AUTHOR AUTHOR'S ORGANIZ ATION 04/25/2024 [facility] DATE CREATED AUTHOR AUTHOR'S ORGANIZ ATION 04/27/2024 [facility] Specialists EPIC Reason for Visit (unrecogniz ed [...] BIOSIMILAR, (AVSOLA), 10 MG INFUSION Hilary Aviles APRN-RAIL CAR MAINTENANCE MECHANIC [address], [place] [address] Phone: tel: fax: [address] [phone] Phone: tel: fax: Referral ID Status Reason Start Date Expiration Date V isits Requested Visits Authorized [id number] Authorized 01/20/2024 01/18/2025 9 9 Reason Comments Outpatient Infusion Injectafer Specialty Diagnoses / Procedures Referred By Contac t Referred To Contact Diagnoses Iron deficiency anemia due to chronic blood loss Iron deficiency anemia, unspecified Iron malabsorption Procedures IN INJ FERRIC [place] 1[place] [address] [place] [address] [address] [place] [id number] [facility] Med Onc [address] [place] [phone] Referral ID Status Reason Start Date Expiration Date V isits Requested Visits Authorized [id number] Authorized 01/24/2023 07/23/2023 2 2 Reason Comments Outpatient Infusion Inflectra Specialty Diagnoses / Procedures Referred By Contac t Referred To Contact Gastroenterology Diagnoses Crohn's disease of both small and large intestine with intestinal obstruction Inflectra 5mg/kg every 6 weeks, Auth'd for 9 visits [phone], SA/Crohns Procedures IN INFLIXIMAB INJECTION INFUSION Hilary Aviles APRN-RAIL CAR MAINTENANCE MECHANIC [address], [place] [address] [facility] [address] [place] [address] Referral ID Status Reason Start Date Expiration Date V isits Requested Visits Authorized [id number] Pending Review 07/26/2022 07/26/2023 9 9 Reason Comments Asthma Reason Comments Outpatient Infusion inflectra Specialty Diagnoses / Procedures Referred By Contac t Referred To Contact Gastroenterology Diagnoses Crohn's disease of both small and large intestine with intestinal obstruction Procedures IN INFLIXIMAB INJECTION Referral ID Status Reason Start Date Expiration Date V isits Requested Visits Authorized [id number] Authorized 04/01/2023 04/01/2024 9 9 Reason Comments Mental Health Problem Reason Comments FMLA Reason Comments Anxiety Depression Reason Comments Follow-up Patient is here for a follow up and denies any issues. Reason Comments Follow-up Specialty Diagnoses / Procedures Referred By Contac t Referred To Contact Gastroenterology Diagnoses Crohn's disease of both small and large intestine with intestinal obstruction Procedures IN INFLIXIMAB INJECTION Reason Comments Outpatient Infusion Specialty Diagnoses / Procedures Referred By Contac t Referred To Contact Gastroenterology Diagnoses Crohn's disease of both small and large intestine with intestinal obstruction [place] 5mg/kg (400mg) every 6 weeks/ Auth'd 01.20.24 - 01.18.25/ visits/ [id number] Dr. Montiel NO ACCELERATED INFUSION Procedures INJECTION, INFLIXIMAB-AXXQ, BIOSIMILAR, (AVSOLA), 10 MG INFUSION Hilary Aviles, [employer]-RAIL CAR MAINTENANCE MECHANIC [address], [place] [address] Phone: tel: fax: [facility] [address] [place] [address] Phone: tel: fax: Care Teams (unrecognized sec tion and content) Revenue Audit Clerk Relationship Specialty Start Date End Date Hilary Aviles MD [address] [place] [address] Referring Physician Nurse Practitioner 10/08/22 Revenue Audit Clerk Relationship Specialty Start Date End Date Hilary Aviles APRN-RAIL CAR MAINTENANCE MECHANIC [address], [place] [address] PCP - General Family Medicine 01/03/24 Revenue Audit Clerk Relationship Specialty Start Date End Date Hilary Aviles MD [address] [place] [address] Referring Physician Nurse Practitioner 10/08/22 Revenue Audit Clerk Relationship Specialty Start Date End Date Hilary Aviles MD [address] [place] [address] Referring Physician Nurse Practitioner 10/08/22 Revenue Audit Clerk Relationship Specialty Start Date End Date Hilary Aviles MD [address] [place] [address] Referring Physician Nurse Practitioner 10/08/22 Revenue Audit Clerk Relationship Specialty Start Date End Date Hilary Aviles APRN-RAIL CAR MAINTENANCE MECHANIC [address], [facility] Russ [facility] [place] [address] PCP - General Family Medicine 01/03/24 Revenue Audit Clerk Relationship Specialty Start Date End Date Hilary Aviles MD [address] [place] [address] Referring Physician Nurse Practitioner 10/08/22 Revenue Audit Clerk Relationship Specialty Start Date End Date Hilary Aviles MD [address] [place] [address] Referring Physician Nurse Practitioner 10/08/22 Revenue Audit Clerk Relationship Specialty Start Date End Date Hilary Aviles MD [address] [facility] [place] [address] Referring Physician Nurse Practitioner 10/08/22 Revenue Audit Clerk Relationship Specialty Start Date End Date Hilary Aviles APRN-RAIL CAR MAINTENANCE MECHANIC [address], [place] [address] PCP - General Family Medicine 12/26/22 Revenue Audit Clerk Relationship Specialty Start Date End Date Hilary Aviles APRN-CNP [address], Matthew [facility] [place] [address] PCP - General Family Medicine 12/26/22 Revenue Audit Clerk Relationship Specialty Start Date End Date Hilary Aviles APRN-CNP [address], Matthew Russ [facility] [place] [address] PCP - General Family Medicine 12/26/22 Revenue Audit Clerk Relationship Specialty Start Date End Date Hilary Aviles APRN-CNP [address], Matthew [place] [address] PCP - General Family Medicine 12/26/22 Revenue Audit Clerk Relationship Specialty Start Date End Date Hilary Aviles APRN-CNP [address], [place] [address] PCP - General Family Medicine 12/26/22 Revenue Audit Clerk Relationship Specialty Start Date End Date Hilary Aviles APRN-CNP [address], [place] [address] PCP - General Family Medicine 12/26/22 Revenue Audit Clerk Relationship Specialty Start Date End Date Hilary Aviles [facility] [address], [place] [address] PCP - General Family Medicine 12/26/22 Revenue Audit Clerk Relationship Specialty Start Date End Date Hilary Aviles [facility] [address], [place] [address] PCP - General Family Medicine 12/26/22 Revenue Audit Clerk Relationship Specialty Start Date End Date Hilary Aviles [facility] [address], [place] [address] PCP - General Family Medicine 12/26/22 Revenue Audit Clerk Relationship Specialty Start Date End Date Hilary Aviles [facility] [address], [place] [address] PCP - General Family Medicine 12/26/22 Revenue Audit Clerk Relationship Specialty Start Date End Date Hilary Avlies [facility] [address], [place] [address] PCP - General Family Medicine 12/26/22 Revenue Audit Clerk Relationship Specialty Start Date End Date Hilary Aviles [facility] [address], [place] [address] PCP - General Family Medicine 12/26/22 Revenue Audit Clerk Relationship Specialty Start Date End Date Hilary Aviles APRN-CNP [address], [place] [address] PCP - General Family Medicine 12/26/22 Revenue Audit Clerk Relationship Specialty Start Date End Date Hilary Aviles APRN-CNP [address], [place] [address] PCP - General Family Medicine 12/26/22 Revenue Audit Clerk Relationship Specialty Start Date End Date Hilary Aviles APRN-CNP [address], [place] [address] PCP - General Family Medicine 01/03/24 Revenue Audit Clerk Relationship Specialty Start Date End Date Hilary Aviles APRN-CNP [address], [place] [address] PCP - General Family Medicine 01/03/24 Revenue Audit Clerk Relationship Specialty Start Date End Date Hilary Aviles MD [address] [place] [address] Referring Physician Nurse Practitioner 10/08/22 Revenue Audit Clerk Relationship Specialty Start Date End Date Hilary Aviles APRN-CNP [address], [place] [address] PCP - General Family Medicine 01/03/24 Revenue Audit Clerk Relationship Specialty Start Date End Date Hilary Aviles APRN-CNP [address], [place] [address] PCP - General Family Medicine 01/03/24 Revenue Audit Clerk Relationship Specialty Start Date End Date Hilary Aviles, SUPER[employer]-RAIL CAR MAINTENANCE MECHANIC [address], [facility] Russ [place], [place] [id number] PCP - General Family Medicine 01/03/24 Revenue Audit Clerk Relationship Specialty Start Date End Date Hilary Aviles MD [address] [place], [place] [address] Referring Physician Nurse Practitioner 10/08/22 FOR RECORDS [...] BE BASED ON THE PRIMARY CLINICAL RECORDS. [facility] [employer] [facility]. provides no warranty or guarantee of the accuracy or completeness of information in this document.
[2024-05-01 12:36] VITALS: BP 117/76; PULSE 98
[2024-05-01 12:50] LABS: Bilirubin Urine NEGATIVE (NEGATIVE); Blood Urine TRACE-I (NEGATIVE); Clarity Urine SL CLOUDY (CLEAR); Color Urine YELLOW (YELLOW); Glucose Urine UA NEGATIVE (NEGATIVE); Ketones Urine NEGATIVE (NEGATIVE); Leukocyte Esterase Urine NEGATIVE (NEGATIVE); Nitrite Urine NEGATIVE (NEGATIVE); Protein Urine TRACE mg/dL (NEG/TRACE)
[2024-05-01 12:58] LABS: Amnisure NEGATIVE (NEGATIVE); Internal Control Within Normal Limits
[2024-05-01 13:01] LABS: Urine Microscopic Indicated YES
[2024-05-01 13:02] LABS: Bacteria Urine MODERATE #/HPF (NONE SEEN); Cast Seen? NONE SEEN #/LPF (NONE SEEN); Crystals Seen? None Seen #/HPF (None Seen); Mucus Urine LARGE (NONE SEEN); RBC Urine 0-2 #/HPF (0-2); Squamous Epithelial Cell Urine FEW #/LPF (NONE/RARE); WBC Urine 0-2 #/HPF (NONE SEEN)
[2024-05-01 13:03] LABS: Urine Culture Indicated YES-LC
[2024-05-01] MEDS: NITROFURANTOIN MONOHYD/MAC-CRST 100 MG CAPSULE PO (13:20)
== END 2024-05-01 13:25 | disposition home or self-care (01) ==
PROVIDERS: Admitting Provider Obstetrics & Gynecology; PCP Nurse Practitioner; Visit Provider Obstetrics & Gynecology
DX: Z03.71 Encounter for suspected problem with amniotic cavity and membrane ruled out (principal)
CPT/HCPCS: 59025; 76815; 76817; 81001; 84112; 87086; G0378; G0379

== ENCOUNTER 2024-05-04 19:59 | Observation (INO) | payer OTHER, SELFPAY ==
--- OUTSIDE RECORDS SUMMARY | 2024-05-04 20:04 | XMS_ITS | CCD ---
Author Organization [facility] Care Team Providers Care Configuration Analyst Name Role Phone ADAMOWICZ, SAMARA J Unavailable Unavailable ADAMOWICZ, SAMARA J Unavailable Unavailable ADAMOWICZ, SAMARA J Unavailable Unavailable ADAMOWICZ, SAMARA J Unavailable Unavailable ADAMOWICZ, SAMARA J Unavailable Unavailable ADAMOWICZ, SAMARA J Unavailable Unavailable ADAMOWICZ, SAMARA J Unavailable Unavailable ADAMOWICZ, SAMARA J Unavailable Unavailable SEBASTIAN HERRING Attending Unavailable SEBASTIAN HERRING Consulting Unavailable SEBASTIAN HERRING Admitting Unavailable MISC, DR VELAZCO Primary Care Unavailable HILARY AVILES Attending Unavailable HILARY AVILES Referring Unavailable TRACI HILARY A Primary Care Unavailable HILARY AVILES A Attending Unavailable FRANK AVILESITH A Referring Unavailable FRANK AVILESITH A Primary Care Unavailable HILARY AVILES A Attending Unavailable FRANK AVILESITH A Referring Unavailable TRACI HILARY A Primary Care Unavailable LYNDSEY ANDERS Attending Unavailable HILARY AVILES A Referring Unavailable HILARY AVILES A Primary Care Unavailable Hilary Aviles MD Unavailable MJ PIZARRO Referring Unavailable TRACI HILARY A Primary Care Unavailable MJ PIZARRO Referring Unavailable TRACI HILARY A Primary Care Unavailable LYNDSEY ANDERS Attending Unavailable LYNDSEY ANDERS Referring Unavailable FRANK AVILESITH A Primary Care Unavailable DOMINIQUE MOYA Attending Unavailable FRANK AVILESITH A Referring Unavailable TRACI HILARY A Primary Care Unavailable TRACI HILARY A Primary Care Unavailable RAULITO SIDDIQUI Attending Unavailab le HILARY AVILES A Primary Care Unavailable SESAR PRICE Attending Unavailable Traci DISPLAY MECHANIC-DISTRICT OR DISTRICT OFFICE DIRECTOR, Hilary A Primary Care Provi lazarus Traci DISPLAY MECHANIC-DISTRICT OR DISTRICT OFFICE DIRECTOR, Hilary A Primary Care Provi lazarus TRACI, [...] every six hours for pain HYDROcodone-acetaminop hen ([place]) 5-325 MG tablet Indications: Abdominal pain, unspecified abdominal location , Crohn's disease with complication, unspecified gastrointestinal tract location (CMS/HCC) Take 1 tablet by mouth every 6 (six) hours if needed for moderate pain or severe pain for up to 15 doses 15 tablet 04/20/2024 Active [id number] actuat albuterol 0.09 mg/actuat metered dose [...] oral tablet (20 sources) Purine Antimetabolite Start: 10-31-2023 take 3 tablets by mouth in the morning azaTHIOprine (IMURAN) 50 mg tablet Take 3 tablets (150 mg total) by mouth in the morning. 270 tablet 1 10/31/2023 Active Start: 09-07-2021 End: 08-20-2023 take 3 tablets [...] tablet 2 10/31/2023 Active Start: 08-02-2021 End: 08-20-2023 take 1 tablet by mouth in the morning folic acid (Folvite) 1 MG tablet Take 1,000 mcg by mouth in the morning. 05/07/2022 Active folic acid 0.4 mg / vitamin b12 1 mg sublingual tablet (20 sources) Vitamin B12 Cobalamin Combin ations (B-12) 100-5000 MCG sublingual tablet B12 Active End: 08-20-2023 cyanocobalamin/folic acid (v itamin D41-rrykp acid) 1,000-400 mcg lozenge B12 08/20/2023 Discontinued [...] injection (20 sources) Tumor Necrosis Factor Stephanie inFLIXimab (REMICADE) 10 mg/mL injection Infuse 5 [...] 5 mg/kg into a venous catheter Active End: 08-20-2023 inFLIXimab-dyyb (INFLECTRA) 100 mg [...] mg ondansetron 4 mg disintegrating oral tablet (14 sources) Serotonin-3 Receptor Antagonist Start: 12-29-2023 End: [...] vomiting. Active vit no.124/iron/folic ( VITAMIN ORAL) (10 sources) take 1 tablet by mouth in the morning vit no.124/iron/folic ( VITAMIN ORAL) Take 1 tablet by mouth in the morning. Active vitamin b12 1 mg oral tablet (18 sources) Vitamin B12 Start: 04-21-19 25 take 1 tablet by mouth in the [...] 08-04-2023 400 mg, intravenous, Once, O n Fri08/04/23 at 1330, For 1 dose, Infuse [...] Test Name Value Interpretation Reference Range Facility Ultrasound - OfficeOrdered B y: Rachelle Arredondo on 05-04-2024 Radiology Study observation (narrative) [facility] Urinalysis macro (dipstick) panel (U)on 04-26-2024 Bilirubin, UA Negative Negative - 4(70) +++ mg/dL [facility] Blood, UA Negative Negative - 50 Enrrique/mcL [facility] Clarity, UA Clear [facility] Color, UA Yellow [facility] Glucose, UA Negative Negative - 2000(110) ++++ mg/dL [facility] Interpretation and review of laboratory results Abnormal [facility] Ketones, UA Positive Negative - 160(16) ++++ mg/dL [facility] Leukocytes, UA Negative Negative - 500+++ Cam/mcL [facility] Nitrite, UA Negative Negative - Positive [facility] pH, UA 6.5 5 - 9 [facility] Protein, UA Negative Negative - 2000(20) ++++ mg/dL [facility] Spec Grav, UA 1.03 1 - 1.03 [facility] Urobilinogen, UA 1.0 0.2 - 12 mg/dL [facility] US OB LIMITED 1+ FETUSESon 0 04-21-2024 [...] II, MD, PHD at 22-Apr-2024 09:07:11 AM [facility] Normal Not Available Comment on above: Order Comment: US OB INCOMPLETE ANATOMY Estimated Date of Delivery: 08/11/24 Gestational Age as of 03/25/2024: 20w1d CBC AND AUTO DIFFon 04-20-19 ABSOLUTE BASOPHIL 0.0 X10E9/L Normal 0.0-0.2 [facility] Comment on above: Performed By: #### 2 276-4, CBCA, FEPR #### [facility] ([id number]) [address], [address] [place] [address] ABSOLUTE NEUTROPHIL 5.2 X10E9/L Normal 1.5-6.6 [facility] Comment on above: Performed By: #### 2 276-4, CBCA, FEPR #### [facility] ([id number]) [address], [address] [place] [address] Basophils/100 WBC (Bld) 0.4 % Normal [facility] Comment on above: Performed By: #### 2 276-4, CBCA, FEPR #### [facility] ([id number]) [address], [address] [place] [address] Eosinophils (Bld) [#/Vol] 0.0 10*3/uL Normal 0.0-0.4 [facility] Comment on above: Performed By: #### 2 276-4, CBCA, FEPR #### [facility] ([id number]) [address], [address] [place] [address] Eosinophils/100 WBC (Bld) 0.6 % Normal [facility] Comment on above: Performed By: #### 2 276-4, CBCA, FEPR #### [facility] ([id number]) [address] [address] [place] [address] Erythrocyte distribution width (RBC) [Ratio] 14.6 % Normal 11.5-15.0 [facility] Comment on above: Performed By: #### 2 276-4, CBCA, FEPR #### [facility] ([id number]) [address] [address] [place] [address] Hematocrit (Bld) [Volume fraction] 32.4 % Low 35-47 [facility] Comment on above: Performed By: #### 2 276-4, CBCA, FEPR #### [facility] ([id number]) [address] [address] [place] [address] Hemoglobin (Bld) [Mass/Vol] 10.7 g/dL Low 11.7-15.5 [facility] Comment on above: Performed By: #### 2 276-4, CBCA, FEPR #### [facility] ([id number]) [address] [address] Lymphocytes (Bld) [#/Vol] 1.9 10*3/uL Normal 1.0-3.5 [facility] Comment on above: Performed By: #### 2 276-4, CBCA, FEPR #### [facility] ([id number]) [address] [address] Lymphocytes/100 WBC (Bld) 24.8 % Normal [facility] Comment on above: Performed By: #### 2 276-4, CBCA, FEPR #### [facility] ([id number]) [address] [address] [place] [address] MCH (RBC) [Entitic mass] 30.9 pg Normal 27-34 [facility] Comment on above: Performed By: #### 2 276-4, CBCA, FEPR #### [facility] ([id number]) [address], [address] [address] MCHC (RBC) [Mass/Vol] 33.0 g/dL Normal 32-[address] [facility] Comment on above: Performed By: #### 2 276-4, CBCA, FEPR #### [facility] ([id number]) [address], [facility] [address] [place] [address] MCV (RBC) [Entitic vol] 94 fL Normal 80-100 [facility] Comment on above: Performed By: #### 2 276-4, CBCA, FEPR #### [facility] ([id number]) [address] [address] [place] [address] Monocytes (Bld) [#/Vol] 0.5 10*3/uL Normal 0-0.9 [facility] Comment on above: Performed By: #### 2 276-4, CBCA, FEPR #### [facility] ([id number]) [address], [address] [address] Monocytes/100 WBC (Bld) 6.5 % Normal [facility] Comment on above: Performed By: #### 2 276-4, CBCA, FEPR #### [facility] ([id number]) [address], [address] [address] Neutrophils/100 WBC (Bld) 67.7 % Normal [facility] Comment on above: Performed By: #### 2 276-4, CBCA, FEPR #### [facility] ([id number]) [address], [facility] [address] [place] [address] Platelet mean volume (Bld) [Entitic vol] 10.8 fL Normal 7-12 [facility] Comment on above: Performed By: #### 2 276-4, CBCA, FEPR #### [facility] ([id number]) [address], [facility] [address] [place] [address] Platelets (Bld) [#/Vol] 162 10*3/uL Normal 150-450 [facility] Comment on above: Performed By: #### 2 276-4, CBCA, FEPR #### [facility] ([id number]) [address], [address] [place] [address] RBC COUNT 3.46 X10E12/L Low 3.80-5.20 [facility] Comment on above: Performed By: #### 2 276-4, CBCA, FEPR #### [facility] ([id number]) [address], [address] [place] [address] WBC (Bld) [#/Vol] 7.7 10*3/uL Normal 4.0-11.0 [facility] Comment on above: Performed By: #### 2 276-4, CBCA, FEPR #### [facility] ([id number]) [address], [address] [place] [address] FERRITINon 04-19-2024 Ferritin [Mass/Vol] 9 ng/mL Low 11-307 [facility] Comment on above: Performed By: #### 2 276-4, CBCA, FEPR #### [facility] ([id number]) [address], [address] [place] [address] IRON PROFILEon 04-19-2024 Iron [Mass/Vol] 78 ug/dL Normal 50-170 [facility] Comment on above: Performed By: #### 2 276-4, CBCA, FEPR #### [facility] ([id number]) [address], [address] [place] [address] IRON BINDING 475 ug/dL High 250-425 [facility] Comment on above: Performed By: #### 2 276-4, CBCA, FEPR #### [facility] ([id number]) [address], [address] [place] [address] IRON SATURATION 16 % SATURATION Normal 15-50 [facility] Comment on above: Performed By: #### 2 276-4, CBCA, FEPR #### [facility] ([id number]) [address], [address] [place] [address] THIOPURINE METABOLITESon 6 METHYLMERCAPTOPRNE <475 Normal < or = [address] [facility] Comment on above: Result Comment: NOTE Result not quantifiable; below the limit of quantitation. Decreased risk of hepatotoxicity. ADDITIONAL INFORMATION Testing performed by Liquid Chromatography-Tandem Mass Spectrometry (LC-MS/MS) This test was developed and its performance characteristics determined by [facility] in a manner consistent with CLIA requirements. This test has not been cleared or approved by the U.S. Food and Drug Administration. Test Performed by: [place] [address] Diesel Engine Engineer: Celi Fernandez Ph.D.; CLIA# [id number] Performed By: #### 2 276-4, CBCA, FEPR #### [facility] ([id number]) [address], [address] [place] [address] 6 THIOGUANINE 101 pmol/8x10(8)RBC Low 235 - 450 [facility] Comment on above: Result Comment: NOTE Decreased possibility of response; suboptimal dosing or noncompliance. Performed By: #### 2 276-4, CBCA, FEPR #### [facility] ([id number]) [address], [address] [place] [address] VITAMIN B12on 04-19-2024 Cobalamin (Vitamin B12) [Mass/Vol] 143 pg/mL Low 180-914 [facility] Comment on above: Performed By: #### 2 276-4, CBCA, FEPR #### [facility] ([id number]) [address], [address] [place] [address] Vitamin D+Metabolites [Mass/ Vol]on 04-19-2024 VITAMIN D 25 HYD TOT 12.0 ng/mL Low 30-100 [facility] Comment on above: Result Comment: Vitamin D status 25 [place] Vitamin D Deficiency <20 ng/mL Insufficiency 20-29 ng/mL Sufficiency 30-100 ng/mL Toxicity >100 ng/mL NOTE: A pediatric reference range has not been established by the dividend deposit entry clerk of this kit. The [place] [employer] recommends a Vitamin D level of = or >20ng/mL in infants and children. Performed By: #### 2 276-4, CBCA, FEPR #### [facility] ([id number]) [address] [place] [address], [address] [place] [address] No Panel Informationon 03-24 Radiology Study observation (narrative) [facility] US OB ANATOMYon 03-24-2024 [place] [address] Ultrasound Report Signed Patient: JUAN LUIS STOREY MR#: [id number] : 1990 Acct:[id number] Age/Sex: 33 / F ADM Date: 03/24/24 Loc: US Attending Dr: Parish Valdez D.O. Ordering Physician: Parish Valdez D.O. Date of Service: 03/24/24 Procedure(s): US OB anatomy Accession Number(s): [id number] cc: Parish Valdez D.O.; Hilary Aviles NP [address] [address] Patient Name: JUAN LUIS STOREY MRN: [id number] date: 1990 Sex: F Assigned Patient Location: US Current Patient Location: US Accession/Order Number: [id number] Exam Date: 03/24/2024 10:45 Report Date: 03/24/2024 [...] Signed By: 03/24/24 1139 DD/ 1136 TD/TT: Sidewalk Inspector: [facility] Radiology, Radiologi MD perla - 03/24/[address] [address] Ultrasound Report Signed Patient: JUAN LUIS STOREY MR#: [id number] : 1990 Acct:[id number] Age/Sex: 33 / F ADM Date: 03/24/24 Loc: US Attending Dr: Parish Valdez D.O. Ordering Physician: Parish Valdez D.O. Date of Service: 03/24/24 Procedure(s): US OB anatomy Accession Number(s): [id number] cc: Parish Valdez D.O.; Hilary Aviles NP [place] [id number] Patient Name: JUAN LUIS STOREY MRN: [facility]:[id number] date: 1990 Sex: F Assigned Patient Location: US Current Patient Location: US Accession/Order Number: [id number] Exam Date: 03/24/2024 10:45 Report Date: 03/24/2024 [...] Signed By: 03/24/24 1139 DD/ 1136 TD/TT: Sidewalk Inspector: [facility] US OB ANATOMYOrdered By: Rad iologbruna Radiology on 03-24-2024 [employer] Work Phone: US OB CERVICAL LENGTHon 03-13 [place] [address] Ultrasound Report Signed Patient: JUAN LUIS STOREY MR#: [id number] : 1990 Acct:[id number] Age/Sex: 33 / F ADM Date: 03/24/24 Loc: US Attending Dr: Parish Valdez D.O. Ordering Physician: Parish Valdez D.O. Date of Service: 03/24/24 Procedure(s): US OB cervical length Accession Number(s): [id number] cc: Parish Valdez D.O.; Hilary Aviles NP [place] [address] Patient Name: JUAN LUIS STOREY MRN: [id number] date: 1990 Sex: F Assigned Patient Location: US Current Patient Location: US Accession/Order Number: [id number] Exam Date: 03/24/2024 10:45 Report Date: 03/24/2024 [...] Signed By: 03/24/24 1138 DD/ 1136 TD/TT: Sidewalk Inspector: [facility] Radiology Radiologaditya duncan MD - 03/24/2024 [place] [address] Ultrasound Report Signed Patient: JUAN LUIS STOREY MR#: [id number] : 1990 Acct:[id number] Age/Sex: 33 / F ADM Date: 03/24/24 Loc: US Attending Dr: Parish Valdez D.O. Ordering Physician: Parish Valdez D.O. Date of Service: 03/24/24 Procedure(s): US OB cervical length Accession Number(s): [id number] cc: Parish Valdez D.O.; Hilary Aviles NP The [place] [id number] Patient Name: JUAN LUIS STOREY MRN: [id number] date: 1990 Sex: F Assigned Patient Location: US Current Patient Location: Accession/Order Number: [id number] Exam Date: 03/24/2024 10:45 Report Date: 03/24/2024 [...] Signed By: 03/24/24 1138 DD/ 1136 TD/TT: Sidewalk Inspector: [facility] US OB CERVICAL LENGTHOrdered By: Radiologist Radiology on 03-24-2024 [facility] Work Phone: Ultrasound - OfficeOrdered B y: Rachelle Arredondo on 03-24-2024 [facility] Unlisted Lab Teston 03-24-19 [facility] RECURRENT VAGINITIS (HTRX)on 03-18-2024 ATOPOBIUM VAGINAE 0 [facility] ATOPOBIUM VAGINAE Not detected [facility] BVAB 2,3 (BACTERIAL VAGINOSIS ASSOCIATED BACTERIA 2, 3); MOBILUNCUS SPP 0 [facility] BVAB 2,3 (BACTERIAL VAGINOSIS ASSOCIATED BACTERIA 2, 3); MOBILUNCUS SPP Not detected [facility] WARD ALBICANS, PARAPSILOSIS, TROPICALIS 0 [facility] WARD ALBICANS, PARAPSILOSIS, TROPICALIS Not detected [facility] WARD GLABRATA 0 [facility] WARD GLABRATA Not detected [facility] WARD KRUSEI 0 [facility] WARD KRUSEI Not detected [facility] CHLAMYDIA TRACHOMATIS 0 [facility] [...] [facility] US OB CERVICAL LENGTHon 02-12 [place] [address] Ultrasound Report Signed Patient: JUAN LUIS STOREY MR#: [id number] : 1990 Acct:[id number] Age/Sex: 33 / F ADM Date: 03/11/24 Loc: US Attending Dr: Parish Valdez D.O. Ordering Physician: Parish Valdez D.O. Date of Service: 03/11/24 Procedure(s): US OB cervical length Accession Number(s): [id number] cc: Parish Valdez D.O.; Hilary Aviles NP The [address] [address] Patient Name: JUAN LUIS STOREY MRN: [facility]:[id number] date: 1990 Sex: F Assigned Patient Location: US Current Patient Location: US Accession/Order Number: [id number] Exam Date: 03/11/2024 10:15 Report Date: 03/11/2024 [...] Signed By: 03/11/24 1056 DD/ 1053 TD/TT: Sidewalk Inspector: [facility] Radiology, Radiologdaitya duncan MD - 03/11/2024 [place] [address] Ultrasound Report Signed Patient: JUAN LUIS STOREY MR#: [id number] : 1990 Acct:[id number] Age/Sex: 33 / F ADM Date: 03/11/24 Loc: US Attending Dr: Parish Valdez D.O. Ordering Physician: Parish Valdez D.O. Date of Service: 03/11/24 Procedure(s): US OB cervical length Accession Number(s): [id number] cc: Parish Valdez D.O.; Hilary Aviles NP [address] [id number] Patient Name: JUAN LUIS STOREY MRN: [facility]:[id number] date: 1990 Sex: F Assigned Patient Location: US Current Patient Location: US Accession/Order Number: [id number] Exam Date: 03/11/2024 10:15 Report Date: 03/11/2024 [...] Signed By: 03/11/24 1056 DD/ 1053 TD/TT: Sidewalk Inspector: [facility] Radiology Study observation (narrative) [facility] US OB CERVICAL LENGTHOrdered By: Radiologist Radiology on 03-11-2024 [facility] Work Phone: Urinalysis macro (dipstick) panel (U)on 02-18-2024 Bilirubin, UA Negative Negative - 4(70) +++ mg/dL [facility] Blood, UA Positive Negative - 50 Enrrique/mcL [facility] Comment on above: trace Clarity, UA Clear [facility] Color, UA Yellow [facility] Glucose, UA Negative Negative - 1999(110) ++++ mg/dL [facility] Interpretation and review of laboratory results Abnormal [facility] Ketones, UA Positive Negative - 160(16) ++++ mg/dL [facility] Comment on above: trace Leukocytes, UA Trace Negative - 500+++ Cam/mcL [facility] Nitrite, UA Negative Negative - Positive [facility] pH, UA 7 5 - 9 [facility] Protein, UA Positive Negative - 2000(20) ++++ mg/dL [facility] Comment on above: 30 Spec Grav, UA 1.03 1 - 1.03 [facility] Urobilinogen, UA 1.0 0.2 - 12 mg/dL [facility] ALL CBC WITH AUTO DIFFon BASOPHILS ABSOLUTE AUTO 0 [facility] Basophils/100 WBC (Bld) 0.2 % 0.2 - 2.0 % [facility] Eosinophils/100 WBC (Bld) 0.9 % 0.9 - 7.0 % [facility] Erythrocyte distribution width (RBC) [Ratio] 12.5 % 11.0 - 15.0 % [facility] Hematocrit (Bld) [Volume fraction] 35.3 % Low 36.0 - 48.0 % [facility] Hemoglobin (Bld) [Mass/Vol] 11.8 g/dL Low 12.0 - 16.0 g/dL [facility] IMMATURE GRANULOCYTES ABS AUTO 0.03 [facility] Immature granulocytes/100 WBC (Bld) 0.4 % 0.0 - 0.5 % [facility] Interpretation and review of laboratory results Abnormal [facility] LYMPHOCYTES ABSOLUTE AUTO 2.4 [facility] Lymphocytes/100 WBC (Bld) 29.2 % 20.5 - 60.0 % [facility] MCH (RBC) [Entitic mass] 32 pg 26.7 - 34.[address] [facility] MCHC (RBC) [Mass/Vol] 33.4 g/dL 29.9 - 35.2 g/dL [facility] MCV (RBC) [Entitic vol] 95.7 fL 81.0 - 99.[address] [facility] MONOCYTES ABSOLUTE AUTO 0.5 [facility] Monocytes/100 WBC (Bld) 6.5 % 1.7 - 12.0 % [facility] NEUTROPHILS ABSOLUTE AUTO 5.1 [facility] Neutrophils/100 WBC (Bld) 62.8 % 43.0 - 75.0 % [facility] Platelet mean volume (Bld) [Entitic vol] 12 fL 9.5 - 13.[address] [facility] TBH EO # 0.1 [facility] TBH PLT [address] [facility] RBC 3.69 Low [facility] WBC 8.2 [facility] No Panel Informationon 02-13 [facility] Rubella IGG immune statuson 02-14-2024 Rubella immune IgG immune [facility] Syphilis Total(Unknown Syphi lis Status)Ordered By: Rachelle Arredondo on 02-14-2024 Syphilis Non-Reactive [facility] BASIC METABOLIC PANLon 01-25 Anion gap [Moles/Vol] 9 mmol/L Normal 5-[address] [facility] Comment on above: Performed By: #### C BC, 2131-10, LIVR, BMP, 25236-6, 1987-06, 67069-8 #### [facility] ([id number]) [address] [place] [address], [address] [place] [address] #### THMET #### [facility] ([id number]) [address] [facility], Calcium [Mass/Vol] 8.6 mg/dL Normal 8.5-10.5 [facility] Comment on above: Performed By: #### C BREANNA, 2131-10, LIVR, BMP, 50749-3, 1987-06, 34015-0 #### [facility] ([id number]) [address] [place] [address], [facility] [address] [place] [address] #### THMET #### [facility] ([id number]) [address] [place] [address], Chloride [Moles/Vol] 104 mmol/L Normal 98-109 [facility] Comment on above: Performed By: #### Elizabeth CARLOS, 2131-10, LIVR, BMP, 92707-3, 1987-06, 71354-2 #### [facility] ([id number]) [address] [place] [address], [address] [place] [address] #### THMET #### [facility] ([id number]) [address] [place] [address], CO2 [Moles/Vol] 21 mmol/L Low 22-32 [facility] Comment on above: Performed By: #### Elizabeth CARLOS, 2131-10, LIVR, BMP, 88453-7, 1987-06, 64345-9 #### [facility] ([id number]) [address] [place] [address] #### THMET #### [facility] ([id number]) [address] [place] [address], Creatinine [Mass/Vol] 0.56 mg/dL Normal 0.40-1.[address] [facility] Comment on above: Result Comment: METH OD TRACEABLE TO IDMS STANDARD Performed By: #### C BREANNA, 2131-10, LIVR, BMP, 68958-0, 1987-06, 55558-4 #### [facility] ([id number]) [address] [place] [address] #### THMET #### [facility] ([id number]) [address] [place] [address], eGFR (CKD-EPI) NON-RACE DEPENDENT >90 Normal >59 [facility] Comment on above: Result Comment: Reported eGFR is based on the CKD-EPI 2020 equation that does not use a race coefficient. Performed By: #### C BREANNA, 2131-10, LIVR, BMP, 55612-8, 1987-06, 65888-3 #### [facility] ([id number]) [address] [place] [address] #### THMET #### [facility] ([id number]) [address] [place] [address], Glucose [Mass/Vol] 73 mg/dL Normal 65-99 [facility] Comment on above: Performed By: #### C BREANNA, 2131-10, LIVR, BMP, 17308-6, 1987-06, 02713-3 #### [facility] ([id number]) [address] [place] [address] #### THMET #### [facility] ([id number]) [address] [place] [address], Potassium [Moles/Vol] 3.8 mmol/L Normal 3.5-5.[address] [facility] Comment on above: Performed By: #### C BC, 2131-10, LIVR, BMP, 13330-0, 1987-06, 33417-8 #### [facility] ([id number]) [address] [place] [address], [address] [place] [address] #### THMET #### [facility] ([id number]) [address] [facility], Sodium [Moles/Vol] 134 mmol/L Normal 134-146 [facility] Comment on above: Performed By: #### C BC, 2131-10, LIVR, BMP, 82577-3, 1987-06, 91019-7 #### [facility] ([id number]) [address] [place] [address] #### THMET #### [facility] ([id number]) [address] [place] [address], Urea nitrogen [Mass/Vol] 6 mg/dL Normal 5-23 [facility] Comment on above: Performed By: #### C BREANNA, 2131-10, LIVR, BMP, 52793-1, 1987-06, 48734-2 #### [facility] ([id number]) [address] [place] [address], [address] [place] [address] #### THMET #### [facility] ([id number]) [address] [place] [address], COMPLETE BLOOD COUNTon 01-25 Erythrocyte distribution width (RBC) [Ratio] 13.7 % Normal 11.5-15.0 [facility] Comment on above: Performed By: #### C BC, 2131-10, LIVR, BMP, 29662-0, 1987-06, 20421-4 #### [facility] ([id number]) [address] [place] [address], [address] [place] [address] #### THMET #### [facility] ([id number]) [address] [place] [address], Hematocrit (Bld) [Volume fraction] 38.5 % Normal 35-47 [facility] Comment on above: Performed By: #### C BREANNA, 2131-10, LIVR, BMP, , 1987-06, 40930-4 #### [facility] ([id number]) [address], [address] [place] [address] #### THMET #### [facility] ([id number]) [address] [facility], Hemoglobin (Bld) [Mass/Vol] 12.8 g/dL Normal 11.7-15.5 [facility] Comment on above: Performed By: #### C BREANNA, 2131-10, LIVR, BMP, , 1987-06, 85925-5 #### [facility] ([id number]) [address] [facility], [address] [place] [address] #### THMET #### [facility] ([id number]) [address] [facility], MCH (RBC) [Entitic mass] 32.5 pg Normal 27-34 [facility] Comment on above: Performed By: #### C BREANNA, 2131-10, LIVR, BMP, 97513-2, 1987-06, 40360-1 #### [facility] ([id number]) [address], [address] [place] [address] #### THMET #### [facility] ([id number]) [address] [facility], MCHC (RBC) [Mass/Vol] 33.3 g/dL Normal 32-[address] [facility] Comment on above: Performed By: #### Elizabeth CARLOS, 2131-10, LIVR, BMP, 70774-0, 1987-06, 92150-2 #### [facility] ([id number]) [address] [facility], [address] [place] [address] #### THMET #### [facility] ([id number]) [address] [facility], MCV (RBC) [Entitic vol] 98 fL Normal 80-100 [facility] Comment on above: Performed By: #### C BREANNA, 2131-10, LIVR, BMP, 18815-5, 1987-06, 23890-8 #### [facility] ([id number]) [address] [place] [address], [facility] [address] [place] [address] #### THMET #### [facility] ([id number]) [address] [facility], Platelet mean volume (Bld) [Entitic vol] 11.2 fL Normal 7-12 [facility] Comment on above: Performed By: #### Elizabeth CARLOS, 2131-10, LIVR, BMP, 09039-5, 1987-06, 72963-1 #### [facility] ([id number]) [address] [place] [address] #### THMET #### [facility] ([id number]) [address] [place] [address], Platelets (Bld) [#/Vol] 108 10*3/uL Low 150-450 [facility] Comment on above: Performed By: #### Elizabeth CARLOS, 2131-10, LIVR, BMP, 51887-3, 1987-06, 12272-3 #### [facility] ([id number]) [address] [place] [address], [place] [address] #### THMET #### [facility] ([id number]) [address] [facility], RBC COUNT 3.95 X10E12/L Normal 3.80-5.20 [facility] Comment on above: Performed By: #### Elizabeth CARLOS, 2131-10, LIVR, BMP, , 1987-06, 99753-0 #### [facility] ([id number]) [address] [place] [address], [address] [place] [address] #### THMET #### [facility] ([id number]) [address] [facility], WBC (Bld) [#/Vol] 7.2 10*3/uL Normal 4.0-11.0 [facility] Comment on above: Performed By: #### C BC, 2131-10, LIVR, BMP, 36313-6, 1987-06, 49982-8 #### [facility] ([id number]) [address] [place] [address], [address] [address] #### THMET #### [facility] ([id number]) [address] [place] [address], CRP [Mass/Vol]on 01-26-2024 C REACTIVE PROTEIN 0.7 mg/dL Normal 0.000-0.744 [facility] Comment on above: Performed By: #### C BREANNA, 2131-10, LIVR, BMP, 78356-5, 1987-06, 75796-7 #### [facility] ([id number]) [address] [place] [address], [address] [address] #### THMET #### [facility] ([id number]) [address] [place] [address], ESR Photometric method (Bld) [Velocity]on 01-26-2024 ESR, ERYTHROCYTE SEDIMENTATION RATE 1 mm/h Normal 0-20 [facility] Comment on above: Performed By: #### C BREANNA, 2131-10, LIVR, BMP, 07982-2, 1987-06, 31422-9 #### [facility] ([id number]) [address] [place] [address], [address] [address] #### THMET #### [facility] ([id number]) [address] [place] [address], LIVER PANELon 01-26-2024 Albumin [Mass/Vol] 3.7 g/dL Normal 3.2-5.3 [facility] Comment on above: Performed By: #### C BC, 2131-10, LIVR, BMP, 19635-1, 1987-06, 42763-8 #### [facility] ([id number]) [address] [place] [address], [address] [place] [address] #### THMET #### [facility] ([id number]) [address] [place] [address], ALP [Catalytic activity/Vol] 29 U/L Low 39-130 [facility] Comment on above: Performed By: #### C BC, 2131-10, LIVR, BMP, 65938-3, 1987-06, 43029-1 #### [facility] ([id number]) [address] [place] [address], [address] [place] [address] #### THMET #### [facility] ([id number]) [address] [place] [address], ALT [Catalytic activity/Vol] 8 U/L Normal 0-31 [facility] Comment on above: Performed By: #### C BREANNA, 2131-10, LIVR, BMP, 63671-3, 1987-06, 27682-8 #### [facility] ([id number]) [address] [place] [address], [address] [place] [address] #### THMET #### [facility] ([id number]) [address] [place] [address], AST [Catalytic activity/Vol] 19 U/L Normal 0-41 [facility] Comment on above: Performed By: #### C BC, 2131-10, LIVR, BMP, 18389-9, 1987-06, 22788-6 #### [facility] ([id number]) [address] [place] [address], [address] [place] [address] #### THMET #### [facility] ([id number]) [address] [place] [address], Bilirubin [Mass/Vol] 0.4 mg/dL Normal 0.3-1.2 [facility] Comment on above: Performed By: #### C BREANNA, 2131-10, LIVR, BMP, 65286-8, 1987-06, 84060-5 #### [facility] ([id number]) [address] [place] [address], [address] [place] [address] #### THMET #### [facility] ([id number]) [address] [facility], Bilirubin.direct [Mass/Vol] 0.1 mg/dL Normal 0.0-0.4 [facility] Comment on above: Performed By: #### C BREANNA, 2131-10, LIVR, BMP, 77869-2, 1987-06, 52391-9 #### [facility] ([id number]) [address] [place] [address], [address] [place] [address] #### THMET #### [facility] ([id number]) [address] [place] [address], Protein [Mass/Vol] 7.0 g/dL Normal 6.0-8.0 [facility] Comment on above: Performed By: #### C BREANNA, 2131-10, LIVR, BMP, 76945-2, 1987-06, 28052-4 #### [facility] ([id number]) [address] [place] [address], [address] [place] [address] #### THMET #### [facility] ([id number]) [address] [place] [address], THIOPURINE METABOLITESon 6 THIOGUANINE Not performed Normal [facility] Comment on above: Result Comment: NOTE Thiopurine Metabolites, B was cancelled on 02/02/2024 at 16:27; Quantity not sufficient to test. Test Performed by: [facility] [place] [facility] [place] [address] [place] [address] [employer]el Engine Engineer: Celi Fernandez Ph.D.; CLIA# [id number] Performed By: #### 2 276-4, CBCA, FEPR #### [facility] ([id number]) [address] [facility], [address] [place] [address] VITAMIN B12on 01-26-2024 Cobalamin (Vitamin B12) [Mass/Vol] 239 pg/mL Normal 180-914 [facility] Comment on above: Performed By: #### C BC, 2131-10, LIVR, BMP, 19697-7, 1987-, 96636-4 #### [facility] ([id number]) [address] [facility], [address] [place] [address] #### THMET #### [facility] ([id number]) [address] [facility], Vitamin D+Metabolites [Mass/ Vol]on 01-26-2024 VITAMIN D 25 HYD TOT 10.1 ng/mL Low 30-100 [facility] Comment on above: Result Comment: Vitamin D status 25 [place] Vitamin D Deficiency <20 ng/mL Insufficiency 20-29 ng/mL Sufficiency 30-100 ng/mL Toxicity >100 ng/mL NOTE: A pediatric reference range has not been established by the dividend deposit entry clerk of this kit. The [place] [employer] recommends a Vitamin D level of = or >20ng/mL in infants and children. Performed By: #### 2 276-4, CBCA, FEPR #### [facility] ([id number]) [address] [facility], [address] [place] [address] HCG ( test) Ql (U)o n 01-23-2024 Interpretation and review of laboratory results Abnormal [facility] Preg Test, Ur Positive Negative [facility] Urinalysis macro (dipstick) panel (U)on 01-23-2024 Bilirubin, UA Negative Negative - 4(70) +++ mg/dL [facility] Blood, UA Positive Negative - 50 Enrrique/mcL [facility] Clarity, UA Clear [facility] Color, UA Yellow [facility] Glucose, UA Negative Negative - 1999(110) ++++ mg/dL [facility] Interpretation and review of laboratory results Abnormal [facility] Ketones, UA Positive Negative - 160(16) ++++ mg/dL [facility] Leukocytes, UA Negative Negative - 500+++ Cam/mcL [facility] Nitrite, UA Negative Negative - Positive [facility] pH, UA 7 5 - 9 [facility] Protein, UA Trace Negative - 1999(20) ++++ mg/dL [facility] Spec Grav, UA 1.015 1 - 1.03 [facility] Urobilinogen, UA 1.0 0.2 - 12 mg/dL [facility] KAY FECAL OCCULT BLDon 01-02 Hemoglobin.gastrointe stinal Ql (Stl) Negative Normal NEG [facility] Comment on above: Performed By: #### 2 335-8 #### [facility] ([id number]) [address] [place] [address], [place] [address] CBC AND AUTO DIFFon 12-01-19 ABSOLUTE BASOPHIL 0.0 X10E9/L Normal 0.0-0.2 [facility] Comment on above: Performed By: #### C EDWIN [place], 2276-4 #### [facility] ([id number]) [address], [address] [place] [address] ABSOLUTE NEUTROPHIL 1.9 X10E9/L Normal 1.5-6.6 [facility] Comment on above: Performed By: #### C EDWIN ARROYO, 2276-4 #### [facility] ([id number]) [address], [address] [place] [address] Basophils/100 WBC (Bld) 0.5 % Normal [facility] Comment on above: Performed By: #### EDWIN Johnson BCA, 2276-4 #### [facility] ([id number]) [address], [address] [place] [address] Eosinophils (Bld) [#/Vol] 0.1 10*3/uL Normal 0.0-0.4 [facility] Comment on above: Performed By: #### C CRUZ, FEPR, 2275-4 #### [facility] ([id number]) [address], [address] [place] [address] Eosinophils/100 WBC (Bld) 2.3 % Normal [facility] Comment on above: Performed By: #### Elizabeth [place]ROYO, FEPR, 2275-4 #### [facility] ([id number]) [address], [facility] [address] [place] [address] Erythrocyte distribution width (RBC) [Ratio] 13.3 % Normal 11.5-15.0 [facility] Comment on above: Performed By: #### Elizabeth ARROYO, FEPR, 2275-4 #### [facility] ([id number]) [address], [facility] [address] [place] [address] Hematocrit (Bld) [Volume fraction] 36.2 % Normal 35-47 [facility] Comment on above: Performed By: #### C CRUZ, FEPR, 4 #### [facility] ([id number]) [address], [facility] [address] [place] [address] Hemoglobin (Bld) [Mass/Vol] 12.8 g/dL Normal 11.7-15.5 [facility] Comment on above: Performed By: #### Elizabeth BCA, FEPR, 2275-4 #### [facility] ([id number]) [address], [facility] [address] [place] [address] Lymphocytes (Bld) [#/Vol] 2.3 10*3/uL Normal 1.0-3.5 [facility] Comment on above: Performed By: #### C BCA, FEPR, 2275-4 #### [facility] ([id number]) [address], [address] [place] [address] Lymphocytes/100 WBC (Bld) 47.4 % Normal [facility] Comment on above: Performed By: #### C CRUZ FEPR, 2275-05 #### [facility] ([id number]) [address], [address] [place] [address] MCH (RBC) [Entitic mass] 33.2 pg Normal 27-34 [facility] Comment on above: Performed By: #### C CRUZ, FEPR, 2275- #### [facility] ([id number]) [address], [address] [place] [address] MCHC (RBC) [Mass/Vol] 35.5 g/dL Normal 32-36 [facility] Comment on above: Performed By: #### Elizabeth ARROYO, FEPR, 2275-05 #### [facility] ([id number]) [address], [address] [place] [address] MCV (RBC) [Entitic vol] 94 fL Normal 80-100 [facility] Comment on above: Performed By: #### Elizabeth ARROYO, FEPR, 2275-05 #### [facility] ([id number]) [address], [address] [place] [address] Monocytes (Bld) [#/Vol] 0.4 10*3/uL Normal 0-0.9 [facility] Comment on above: Performed By: #### Elizabeth ARROYO, FEPR, 2275-05 #### [facility] ([id number]) [address], [address] [place] [address] Monocytes/100 WBC (Bld) 9.1 % Normal [facility] Comment on above: Performed By: #### Elizabeth ARROYO, FEPR, 2275-05 #### [facility] ([id number]) [address], [address] [place] [address] Neutrophils/100 WBC (Bld) 40.7 % Normal [facility] Comment on above: Performed By: #### Elizabeth BCA, FEPR, 4 #### [facility] ([id number]) [address], [address] [place] [address] Platelet mean volume (Bld) [Entitic vol] 11.1 fL Normal 7-12 [facility] Comment on above: Performed By: #### C BCA, FEPR, 6-4 #### [facility] ([id number]) [address], [facility] [address] [place] [address] Platelets (Bld) [#/Vol] 187 10*3/uL Normal 150-450 [facility] Comment on above: Performed By: #### C BCA, FEPR, 2275-4 #### [facility] ([id number]) [address], [facility] [address] [place] [address] RBC COUNT 3.87 X10E12/L Normal 3.80-5.20 [facility] Comment on above: Performed By: #### Elizabeth BCA, FEPR, 2275-4 #### [facility] ([id number]) [address] [address] [place] [address] WBC (Bld) [#/Vol] 4.8 10*3/uL Normal 4.0-11.0 [facility] Comment on above: Performed By: #### Elizabeth BCA, FEPR, 2275-4 #### [facility] ([id number]) [address] [address] [place] [address] FERRITINon 12-01-2023 Ferritin [Mass/Vol] 12 ng/mL Normal 11-307 [facility] Comment on above: Performed By: #### C BCA, FEPR, 2275-4 #### [facility] ([id number]) [address] [address] [place] [address] IRON PROFILEon 12-01-2023 Iron [Mass/Vol] 74 ug/dL Normal 50-170 [facility] Comment on above: Performed By: #### Elizabeth BCA, FEPR, 2275-4 #### [facility] ([id number]) [address] [address] [place] [address] IRON BINDING 344 ug/dL Normal 250-425 [facility] Comment on above: Performed By: #### C BCA, FEPR, 6-4 #### [facility] ([id number]) [address], [facility] [address] [place] [address] IRON SATURATION 21 % SATURATION Normal 15-50 [facility] Comment on above: Performed By: #### C BCA, FEPR, 6-4 #### [facility] ([id number]) [address] [address] CBC AND AUTO DIFFon 08-03- 24 ABSOLUTE BASOPHIL 0.0 X10E9/L Normal 0.0-0.2 [facility] Comment on above: Performed By: #### 2 276-4, CBCA, FEPR #### [facility] ([id number]) [address] [address] ABSOLUTE NEUTROPHIL 2.7 X10E9/L Normal 1.5-6.6 [facility] Comment on above: Performed By: #### 2 276-4, CBCA, FEPR #### [facility] ([id number]) [address] [address] Basophils/100 WBC (Bld) 0.4 % Normal [facility] Comment on above: Performed By: #### 2 276-4, CBCA, FEPR #### [facility] ([id number]) [address] [address] Eosinophils (Bld) [#/Vol] 0.1 10*3/uL Normal 0.0-0.4 [facility] Comment on above: Performed By: #### 2 276-4, CBCA, FEPR #### [facility] ([id number]) [address] [place] [address] Eosinophils/100 WBC (Bld) 2.0 % Normal [facility] Comment on above: Performed By: #### 2 276-4, CBCA, FEPR #### [facility] ([id number]) [address], [facility] [address] [place] [address] Erythrocyte distribution width (RBC) [Ratio] 13.5 % Normal 11.5-15.0 [facility] Comment on above: Performed By: #### 2 276-4, CBCA, FEPR #### [facility] ([id number]) [address] [facility] [address] [place] [address] Hematocrit (Bld) [Volume fraction] 35.2 % Normal 35-47 [facility] Comment on above: Performed By: #### 2 276-4, CBCA, FEPR #### [facility] ([id number]) [address], [facility] [address] [place] [address] Hemoglobin (Bld) [Mass/Vol] 12.2 g/dL Normal 11.7-15.5 [facility] Comment on above: Performed By: #### 2 276-4, CBCA, FEPR #### [facility] ([id number]) [address] [address] Lymphocytes (Bld) [#/Vol] 1.9 10*3/uL Normal 1.0-3.5 [facility] Comment on above: Performed By: #### 2 276-4, CBCA, FEPR #### [facility] [facility] ([id number]) [address], [facility] [address] [place] [address] Lymphocytes/100 WBC (Bld) 36.8 % Normal [facility] Comment on above: Performed By: #### 2 276-4, CBCA, FEPR #### [facility] ([id number]) [address], [facility] [address] [place] [address] MCH (RBC) [Entitic mass] 31.9 pg Normal 27-34 [facility] Comment on above: Performed By: #### 2 276-4, CBCA, FEPR #### [facility] ([id number]) [address] [place] [address] MCHC (RBC) [Mass/Vol] 34.5 g/dL Normal 32-[address] [facility] Comment on above: Performed By: #### 2 276-4, CBCA, FEPR #### [facility] ([id number]) [address], [facility] [address] [place] [address] MCV (RBC) [Entitic vol] 93 fL Normal 80-100 [facility] Comment on above: Performed By: #### 2 276-4, CBCA, FEPR #### [facility] ([id number]) [address] [place] [address] Monocytes (Bld) [#/Vol] 0.4 10*3/uL Normal 0-0.9 [facility] Comment on above: Performed By: #### 2 276-4, CBCA, FEPR #### [facility] ([id number]) [address] [place] [address] Monocytes/100 WBC (Bld) 8.3 % Normal [facility] Comment on above: Performed By: #### 2 276-4, CBCA, FEPR #### [facility] ([id number]) [address] [place] [address] Neutrophils/100 WBC (Bld) 52.5 % Normal [facility] Comment on above: Performed By: #### 2 276-4, CBCA, FEPR #### [facility] ([id number]) [address] [place] [address] Platelet mean volume (Bld) [Entitic vol] 10.7 fL Normal 7-12 [facility] Comment on above: Performed By: #### 2 276-4, CBCA, FEPR #### [facility] ([id number]) [address], [facility] [address] [place] [address] Platelets (Bld) [#/Vol] 198 10*3/uL Normal 150-450 [facility] Comment on above: Performed By: #### 2 276-4, CBCA, FEPR #### [facility] ([id number]) [address] [place] [address] RBC COUNT 3.81 X10E12/L Normal 3.80-5.20 [facility] Comment on above: Performed By: #### 2 276-4, CBCA, FEPR #### [facility] ([id number]) [address], [facility] [address] [place] [address] WBC (Bld) [#/Vol] 5.2 10*3/uL Normal 4.0-11.0 [facility] Comment on above: Performed By: #### 2 276-4, CBCA, FEPR #### [facility] ([id number]) [address] [place] [address] FERRITINon 08-04-2023 Ferritin [Mass/Vol] 27 ng/mL Normal 11-307 [facility] Comment on above: Performed By: #### 2 276-4, CBCA, FEPR #### [facility] ([id number]) [address] [place] [address] IRON PROFILEon 08-04-2023 Iron [Mass/Vol] 46 ug/dL Low 50-170 [facility] Comment on above: Performed By: #### 2 276-4, CBCA, FEPR #### [facility] ([id number]) [address] [place] [address] IRON BINDING 273 ug/dL Normal 250-425 [facility] Comment on above: Performed By: #### 2 276-4, CBCA, FEPR #### [facility] ([id number]) [address] [facility], [address] [place] [address] IRON SATURATION 17 % SATURATION Normal 15-50 [facility] Comment on above: Performed By: #### 2 276-4, CBCA, FEPR #### [facility] ([id number]) [address] [facility], [address] [place] [address] M. tuberculosis stim IFN-g p carrillo (Bld)on 08-04-2023 Mitogen minus Nil Result 9.92 IU/mL Normal [facility] Comment on above: Performed By: #### 7 1775-1 #### [facility] ([id number]) [address] [place] [address], Nil Result 0.08 IU/mL Normal [facility] Comment on above: Result Comment: NOTE Test Performed by: [facility] [place] [facility] [place] [address] [place] [address] Diesel Engine Engineer: Celi Fernandez Ph.D.; CLIA# [id number] Performed By: #### 7 1775-1 #### [facility] ([id number]) [address] [place] [address], QuantiFERON-Tb Gold Plus Result Negative Normal Negative [facility] Comment on above: Result Comment: NOTE [...] IU/mL. Performed By: #### 7 1775-1 #### [facility] ([id number]) [address] [facility], TB1 Ag minus Nil Result 0.09 IU/mL Normal [facility] Comment on above: Performed By: #### 7 1775-1 #### [facility] ([id number]) [address] [facility], TB2 Ag minus Nil Result 0.01 IU/mL Normal [facility] Comment on above: Performed By: #### 7 1775-1 #### [facility] ([id number]) [address] [facility], PAP ACOG PANEL 2: 30 to 65on 05-07-2022 . . Normal [facility] Comment on above: Result Comment: Perf ormed at: WB Performed By: #### 4 [id number] #### [facility] [address] [place] [address] Dr. Bisi Glass Age Gdln ACOG Testing 30-65 [facility] Comment on above: Performed By: #### 4 [id number] #### [facility] [address] [place] [address] Dr. Bisi Glass DIAGNOSIS: Comment Normal [facility] Comment on above: Result Comment: NEGA TIVE FOR INTRAEPITHELIAL LESION OR MALIGNANCY. Performed at: WB Performed By: #### 4 [id number] #### [facility] [address] [place] [address] Dr. Bisi Glass HPV Aptima Negative Normal Negative [facility] Comment on above: Result Comment: This nucleic acid amplification test detects fourteen high-risk HPV types (16,18,31,33,35,39,45,51,52,56,58,59,66,68) without differentiation. Performed at: =G Performed By: #### 4 [id number] #### [facility] [address] [address] [address] Bisi Glass HPV Genotype Reflex Comment Normal [facility] Comment on above: Result Comment: Crit eria not met, HPV Genotype not performed. Performed at: WB Performed By: #### 4 [id number] #### [facility] [address] [place] [address] Dr. Bisi Glass Methodology: Comment Normal [facility] Comment on above: Result Comment: This liquid based ThinPrep(R) pap test was screened with the use of an image guided system. Performed at: WB Performed By: #### 4 [id number] #### [facility] [address] [place], [place] [address] Dr. Bisi Glass Note: Comment Normal [facility] Comment on above: Result Comment: The Pap smear is a screening test designed to aid in the detection of premalignant and malignant conditions of the uterine cervix. It is not a diagnostic procedure and should not be used as the sole means of detecting cervical cancer. Both false-positive and false-negative reports do occur. . Performed at: WB Performed By: #### 4 [id number] #### [facility] [address] [place], [place] [address] Dr. Bisi Glass Performed by: Comment Normal [facility] Comment on above: Result Comment: Ngozi Hamlin, Horse Buyer (ASCP) Performed at: WB Performed By: #### 4 483214 #### [facility] [address] [place], [place] [address] Dr. Bsii Glass Specimen adequacy: Comment Normal [facility] Comment on above: Result Comment: Sati sfactory for evaluation. Endocervical and/or squamous metaplastic cells (endocervical component) are present. Performed at: WB Performed By: #### 4 [id number] #### [facility] [address] [place], [place] [address] Dr. Bisi Glass [facility] 02-11-2017 [facility] Letter TextNorth White Memorial Medical Centery[address] [place], [place] [address]Hsrcf: [phone]: [facility] [place], [place] [address]Jftlq: [phone]: [facility] [place], [place] [address]Hywwz: [phone]: Toll Free: [phone] [email or web address] Raza Roldan M.D., Jhon Mora M.D.Barry Camarena M.D.Samara Hernandez D.O..Oksana Benson M.D.Nati Sullivan M.D. Matt Bobby M.D.February 11, 2017[facility] [facility] [address]Zujo Ms. Storey,You missed your scheduled appointment on Saturday February 11, 2017. Pleasecall our office to reschedule. If you need to cancel any futureappointments, please call to give us 24 hour notice so that we can offer yourappointment to another patient.Sincerely,Brando Carvajal. [facility] 12-03-2016 HOSP Infusion Center (HEMTCL) JUAN LUIS STOREY ([id number]) 1990 [facility] Time Provider Belgukdrwt39/24/17 1:00 PM CHAIR 1 JOSE HEMTCL During your visit today, we recorded the following information about you: Temperature Pulse Respiration Blood pressure 98.9 degrees 76/minute 18/minute 97/64Referring Provider: SAMARA HERNANDEZ [[id number]]Allergies As of Date: 12/03/2016(No Known Allergies)Date Reviewed: 12/03/2016Reviewed by: Kristi (Rn) JAD Partida - Fully AssessedPrimary Visit Diagnosis:Anemia, unspecified type [D64.9]Order(s):TREATMEN T PARAMETER-NOT NEEDED [9646549] Order #: [id number]: 1 HEMONC NURSING COMMUNICATION [[id number]] Order #: [id number]: 1 STANDING HEMONC NURSING COMMUNICATION [4899238] Order #: [id number]: 1 STANDING HEMONC NURSING COMMUNICATION [9990214] Order #: [id number]: 1 STANDING HEMONC NURSING COMMUNICATION [9990214] Order #: [id number]: 1 STANDING HEMONC NURSING COMMUNICATION [9990214] Order #: [id number]: 1 STANDING HEMONC NURSING COMMUNICATION [9990214] Order #: [id number]: 1 STANDING [] iron sucrose 200 mg [...] (1 ML) INJECTION* 12/03/2016 Route: INTRAMUSCULAEncounter Number: [id number] Status:Closed by KRISTI PARTIDA on 12/03/16 [facility] CNOVSPon 11-19-2016 CNOVSP Visit (SP) Office (HEMACL) JUAN LUIS STOREY ([id number]) 1990 [facility] Time Provider Dzvoocvudi12/10/17 11:00 AM SAMARA HERNANDEZ During your visit today, we recorded the following information about you: Temperature Pulse Respiration Blood pressure 97.8 degrees 78/minute 18/minute 96/61 Weight Height 59.6 kg 1.632 Clara Berger 11/19/2016 11:15 AM SignedPatient states feeling more fatigue.Samara Hernandez DO 11/23/2016 9:43 AM SignedPATIENT NAME: Juan Luis StoreyMRN: [id number] PHYSICIAN: IFTIKHAR RAZO[address] [place] [address] CARE PHYSICIAN: Iftikhar RazoOTHER PHYSICIANS:CHIEF COMPLAINT: Anemia, [...] PRESENT ILLNESS: This is a 26year old -[place]az[place] femaleCBC from 05/22/16 reveals white blood cell [...] her second kid in dec 2014.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 Otherwise she does not seem verysymptomatic from her anemia.July 30, 2016 not eating ice. She doesn't feel a lot different otherwise. Still a bittired. Less than previously. Periods settle down a bit. Has not seen yet, scheduled for sometime this month.After her second iron infusion she had pretty severe constipation abdominalbloating.Octobe r 2016 add on visit for recurrent [...] I answered all questions satisfactorily..Mariano Hernandez D.O.Medical OncologistPort [place], [place]Referring Provider: SAMARA HERNANDEZ [[id number]]Allergies As of Date: 11/19/2016(No Known Allergies)Date Reviewed: [...] Status:Closed by SAMARA HERNANDEZ DO on 11/23/16 [facility] 11-19-2016 PROGRESS HNO ID: [id number]: Samara Ortiz: (none)Author Type: PhysicianType: Progress NotesFiled: 11/23/2016 9:43 AMNote Text:PATIENT NAME: Juan Luis StoreyMRN: [id number] PHYSICIAN: IFTIKHAR RAZO[address] CARE PHYSICIAN: Iftikhar RazoOTHER PHYSICIANS:CHIEF COMPLAINT: Anemia, [...] PRESENT ILLNESS: This is a 26year old -[place] femaleCBC from 05/22/16 reveals white blood cell [...] her second kid in dec 2014.Works a [employer] service.June 04, 2016Eats a bag of ice [...] I answered all questions satisfactorily..Mariano Hernandez D.O.Medical OncologistGroup Health [facility] [place], [place] Normal [facility] Remote CBCDIF (for [facility] use o nly)on 11-19-2016 Abs Baso 0.02 k/uL Normal <0.11 [facility] Abs Adjuntas 0.40 k/uL Normal 0.00-0.86 [facility] Abs Neut 3.13 k/uL Normal 1.45-7.50 [facility] Basophils/100 WBC Auto (Bld) 0.4 % Normal [facility] Eosinophils 0.05 10*3/uL Normal <0.46 [facility] Eosinophils/100 leukocytes 0.9 % Normal [facility] Erythrocyte distribution width Auto Ratio (RBC) 13.5 % Normal 11.5-15.0 [facility] Erythrocytes (RBC) 3.87 10*6/uL Low 3.90-5.20 [facility] Hematocrit (HCT) 33.0 % Low 36.0-46.0 [facility] Hemoglobin mass conc (Bld) 10.5 g/dL Low 11.5-15.5 [facility] Lymphocytes 1.70 10*3/uL Normal 1.00-4.00 [facility] Lymphocytes/100 leukocytes 32.1 % Normal [facility] MCH 27.1 pG Normal 26.0-34.0 [facility] MCHC mass conc (RBC) 31.8 g/dL Normal 30.5-36.0 [facility] MCV 85.3 fL Normal 80.0-100.0 [facility] Monocytes/100 leukocytes 7.5 % Normal [facility] Neutrophils/100 WBC Auto (Bld) 59.1 % Normal [facility] Platelet mean volume (PMV) 11.0 fL Normal 9.0-12.7 [facility] Platelets 288 10*3/uL Normal 150-400 [facility] WBC (Leukocytes) 5.30 10*3/uL Normal 3.70-11.00 [facility] Remote iSTAT BMP (for [facility] us e only)on 11-19-2016 Anion gap 11 mmol/L Normal 0-15 [facility] BUN (urea nitrogen) 12 mg/dL Normal 8-25 [facility] Chloride 105 mmol/L Normal 98-110 [facility] CO2 24 mmol/L Normal 23-32 [facility] Creatinine 0.70 mg/dL Normal 0.70-1.40 [facility] eGFR (non-black) mL/min/{1.73_m2} Normal Cl [facility] Comment on above: Result Comment: eGFR [...] Glucose mass conc 79 mg/dL Normal 65-100 [facility] Ionized Calcium, WB 1.14 mmol/L Normal 1.08-1.30 [facility] Comment on above: Result Comment: Plea se note: This value represents ionized calcium not total calcium. Potassium molar conc 4.0 mmol/L Normal 3.5-5.0 [facility] Sodium 140 mmol/L Normal 132-148 [facility] Ferritinon 10-29-2016 Ferritin 19.8 ng/mL Normal 14.7-205.1 [facility] Comment on above: Performed By: #### I CHERYL FERR ####[facility] [address] [place], [place] [phone] Iron and TIBCon 10-29-2016 Iron 21 ug/dL Low 41-186 [facility] Comment on above: Performed By: #### I CHERYL FERR ####[facility] [address] [place], [place] [phone] TIBC 331 ug/dL Normal 232-386 [facility] Comment on above: Performed By: #### I CHERYL, FERR ####[facility] [address] [place], [place] [phone] Transferrin Saturatn 6 % Low 15-57 [facility] Comment on above: Performed By: #### I CHERYL, FERR ####[facility] [address] [place], [place] [phone] Remote CBCDIF (for [facility] use o nly)on 10-29-2016 Abs Baso 0.02 k/uL Normal 0.00-0.10 [facility] Abs Adjuntas 0.42 k/uL Normal 0.00-0.86 [facility] Abs Neut 3.06 k/uL Normal 1.45-7.50 [facility] Basophils/100 WBC Auto (Bld) 0.3 % Normal [facility] Eosinophils 0.11 10*3/uL Normal 0.00-0.45 [facility] Eosinophils/100 leukocytes 1.8 % Normal [facility] Erythrocyte distribution width Auto Ratio (RBC) 12.9 % Normal 11.5-15.0 [facility] Erythrocytes (RBC) 3.90 10*6/uL Normal 3.90-5.20 [facility] Hematocrit (HCT) 34.0 % Low 36.0-46.0 [facility] Hemoglobin mass conc (Bld) 10.8 g/dL Low 11.5-15.5 [facility] Lymphocytes 2.37 10*3/uL Normal 1.00-4.00 [facility] Lymphocytes/100 leukocytes 39.6 % Normal [facility] MCH 27.7 pG Normal 26.0-34.0 [facility] MCHC mass conc (RBC) 31.8 g/dL Normal 30.5-36.0 [facility] MCV 87.2 fL Normal 80.0-100.0 [facility] Monocytes/100 leukocytes 7.0 % Normal [facility] Neutrophils/100 WBC Auto (Bld) 51.3 % Normal [facility] Platelet mean volume (PMV) 10.8 fL Normal 9.0-12.7 [facility] Platelets 268 10*3/uL Normal 150-400 [facility] WBC (Leukocytes) 5.98 10*3/uL Normal 3.70-11.00 [facility] Remote iSTAT BMP (for [facility] us e only)on 10-29-2016 Anion gap 11 mmol/L Normal 0-15 [facility] BUN (urea nitrogen) 9 mg/dL Normal 8-25 [facility] Chloride 104 mmol/L Normal 98-110 [facility] CO2 26 mmol/L Normal 23-32 [facility] Creatinine 0.70 mg/dL Normal 0.70-1.40 [facility] eGFR (non-black) mL/min/{1.73_m2} Normal Cl [facility] Comment on above: Result Comment: eGFR [...] Glucose mass conc 83 mg/dL Normal 65-100 [facility] Ionized Calcium, WB 1.16 mmol/L Normal 1.08-1.30 [facility] Comment on above: Result Comment: Plea se note: This value represents ionized calcium not total calcium. Potassium molar conc 3.8 mmol/L Normal 3.5-5.0 [facility] Sodium 141 mmol/L Normal 132-148 [facility] Ferritinon 10-01-2016 Ferritin 9.1 ng/mL Low 14.7-205.1 [facility] Comment on above: Performed By: #### I CHERYL FERR ####[facility] [address] [place], [place] [phone] Iron and TIBCon 10-01-2016 Iron 34 ug/dL Low 41-186 [facility] Comment on above: Performed By: #### I CHERYL, FERR ####[facility] [address] [place], [place] [phone] TIBC 316 ug/dL Normal 232-386 [facility] Comment on above: Performed By: #### I CHERYL, FERR ####[facility] [address] [place], [place] [phone] Transferrin Saturatn 11 % Low 15-57 [facility] Comment on above: Performed By: #### I CHERYL, FERR ####[facility] [address] [place], [place] [phone] Remote CBCDIF (for [facility] use o nly)on 10-01-2016 Abs Baso 0.02 k/uL Normal 0.00-0.10 [facility] Abs Adjuntas 0.53 k/uL Normal 0.00-0.86 [facility] Abs Neut 2.48 k/uL Normal 1.45-7.50 [facility] Basophils/100 WBC Auto (Bld) 0.4 % Normal [facility] Eosinophils 0.09 10*3/uL Normal 0.00-0.45 [facility] Eosinophils/100 leukocytes 1.6 % Normal [facility] Erythrocyte distribution width Auto Ratio (RBC) 13.7 % Normal 11.5-15.0 [facility] Erythrocytes (RBC) 3.85 10*6/uL Low 3.90-5.20 [facility] Hematocrit (HCT) 33.5 % Low 36.0-46.0 [facility] Hemoglobin mass conc (Bld) 10.7 g/dL Low 11.5-15.5 [facility] Lymphocytes 2.36 10*3/uL Normal 1.00-4.00 [facility] Lymphocytes/100 leukocytes 43.1 % Normal [facility] MCH 27.8 pG Normal 26.0-34.0 [facility] MCHC mass conc (RBC) 31.9 g/dL Normal 30.5-36.0 [facility] MCV 87.0 fL Normal 80.0-100.0 [facility] Monocytes/100 leukocytes 9.7 % Normal [facility] Neutrophils/100 WBC Auto (Bld) 45.2 % Normal [facility] Platelet mean volume (PMV) 10.8 fL Normal 9.0-12.7 [facility] Platelets 282 10*3/uL Normal 150-400 [facility] WBC (Leukocytes) 5.48 10*3/uL Normal 3.70-11.00 [facility] Remote iSTAT BMP (for [facility] us e only)on 10-01-2016 Anion gap 13 mmol/L Normal 0-15 [facility] BUN (urea nitrogen) 14 mg/dL Normal 8-25 [facility] Chloride 102 mmol/L Normal 98-110 [facility] CO2 24 mmol/L Normal 23-32 [facility] Creatinine 0.70 mg/dL Normal 0.70-1.40 [facility] eGFR (non-black) mL/min/{1.73_m2} Normal Cl [facility] Comment on above: Result Comment: eGFR [...] Glucose mass conc 93 mg/dL Normal 65-100 [facility] Ionized Calcium, WB 1.14 mmol/L Normal 1.08-1.30 [facility] Comment on above: Result Comment: Plea se note: This value represents ionized calcium not total calcium. Potassium molar conc 3.7 mmol/L Normal 3.5-5.0 [facility] Sodium 139 mmol/L Normal 132-148 [facility] Remote CBCDIF (for [facility] use o nly)on 08-29-2016 Abs Baso 0.02 k/uL Normal 0.00-0.10 [facility] Abs Adjuntas 0.52 k/uL Normal 0.00-0.86 [facility] Abs Neut 3.37 k/uL Normal 1.45-7.50 [facility] Basophils/100 WBC Auto (Bld) 0.3 % Normal [facility] Eosinophils 0.10 10*3/uL Normal 0.00-0.45 [facility] Eosinophils/100 leukocytes 1.7 % Normal [facility] Erythrocyte distribution width Auto Ratio (RBC) 18.7 % High 11.5-15.0 [facility] Erythrocytes (RBC) 3.97 10*6/uL Normal 3.90-5.20 [facility] Hematocrit (HCT) 33.0 % Low 36.0-46.0 [facility] Hemoglobin mass conc (Bld) 10.5 g/dL Low 11.5-15.5 [facility] Lymphocytes 1.92 10*3/uL Normal 1.00-4.00 [facility] Lymphocytes/100 leukocytes 32.4 % Normal [facility] MCH 26.4 pG Normal 26.0-34.0 [facility] MCHC mass conc (RBC) 31.8 g/dL Normal 30.5-36.0 [facility] MCV 83.1 fL Normal 80.0-100.0 [facility] Monocytes/100 leukocytes 8.8 % Normal [facility] Neutrophils/100 WBC Auto (Bld) 56.8 % Normal [facility] Platelet mean volume (PMV) 10.0 fL Normal 9.0-12.7 [facility] Platelets 263 10*3/uL Normal 150-400 [facility] WBC (Leukocytes) 5.93 10*3/uL Normal 3.70-11.00 [facility] Remote iSTAT BMP (for [facility] u se only)on 08-29-2016 Anion gap 12 mmol/L Normal 0-15 [facility] BUN (urea nitrogen) 12 mg/dL Normal 8-25 [facility] Chloride 104 mmol/L Normal 98-110 [facility] CO2 24 mmol/L Normal 23-32 [facility] Creatinine 0.80 mg/dL Normal 0.70-1.40 [facility] eGFR (non-black) mL/min/{1.73_m2} Normal [facility] Comment on above: Result Comment: eGFR (Estimated [...] Glucose mass conc 91 mg/dL Normal 65-100 [facility] Ionized Calcium, WB 1.14 mmol/L Normal 1.08-1.30 [facility] Comment on above: Result Comment: Lore note: This value represents ionized calcium not total calcium. Potassium molar conc 3.7 mmol/L Normal 3.5-5.0 [facility] Sodium 140 mmol/L Normal 132-148 [facility] Vital Signs Date Time Vital Sign Value [facility] 04-26-2024 [id number] Body mass index (BMI) [Ratio] 30.65 kg/m2 Parish Courtney DO Work Phone: [facility] 04-26-2024 [id number] Body weight 83.55 kg Parish Courtney DO Work Phone: [facility] 04-26-2024 [id number] Diastolic blood pressure 76 mm[Hg] Parish Courtney DO Work Phone: [facility] 04-26-2024 [id number] Systolic blood pressure 122 mm[Hg] Parish Courtney DO Work Phone: [facility] 04-19-2024 13:13-0400 Body temperature 99.19 [degF] [facility] 1 [facility] 04-19-2024 13:130400 Diastolic blood pressure 79 mm[Hg] [facility] 1 [facility] 04-19-2024 13:13-0400 Heart rate 96 /min [facility] 1 [facility] 04-19-2024 13:13-0400 Respiratory rate 20 /min Wl 1 [facility] 04-19-2024 13:13-0400 Systolic blood pressure 116 mm[Hg] [facility] 1 [facility] 04-19-2024 10:41-0400 Body mass index (BMI) [Ratio] 30.63 kg/m2 W[facility] 1 [facility] 04-19-2024 10:41-0400 Body weight 83.5 kg Wl 1 [facility] 04-19-2024 09:53-0400 Body height 165.1 cm Sharda Montiel MD Work Phone: [facility] 04-19-2024 09:53-0400 Body mass index (BMI) [Ratio] 30.62 kg/m2 Sharda Montiel MD Work Phone: [facility] 04-19-2024 09:53-0400 Body weight 83.46 kg Sharda Montiel MD Work Phone: [facility] 04-19-2024 09:53-0400 Diastolic blood pressure 86 mm[Hg] Sharda Montiel MD Work Phone: [facility] 04-19-2024 09:53-0400 Systolic blood pressure 140 mm[Hg] Sharda Montiel MD Work Phone: [facility] 04-14-2024 14:33-0500 Body mass index (BMI) [Ratio] 30.42 kg/m2 Parish Courtney DO Work Phone: [facility] 04-14-2024 14:33-0500 Body weight 82.92 kg Parish Courtney DO Work Phone: [facility] 04-14-2024 14:33-0500 Diastolic blood pressure 72 mm[Hg] Parish Courtney DO Work Phone: [facility] 04-14-2024 14:33-0500 Systolic blood pressure 122 mm[Hg] Parish Courtney DO Work Phone: [facility] 03-17-2024 10:51-0500 Body mass index (BMI) [Ratio] 29.31 kg/m2 Yaquelin Horne SIMI Work Phone: [facility] 03-17-2024 10:51-0500 Body weight 79.89 kg Yaquelin Horne SIMI Work Phone: [facility] 03-17-2024 10:51-0500 Diastolic blood pressure 70 mm[Hg] Yaquelin Horne SIMI Work Phone: [facility] 03-17-2024 10:51-0500 Systolic blood pressure 116 mm[Hg] Yaquelin Horne PA Work Phone: [facility] 03-08-2024 12:30-0500 Body temperature 99.81 [degF] [facility] 1 [facility] [employer] [facility] 03-08-2024 12:30-0500 Diastolic blood pressure 69 mm[Hg] [facility] 1 [facility] 03-08-2024 12:30-0500 Heart rate 103 /min Wl 1 [facility] 03-08-2024 12:30-0500 Respiratory rate 18 /min [facility] 1 [facility] 03-08-2024 12:30-0500 Systolic blood pressure 109 mm[Hg] [facility] 1 [facility] 03-08-2024 10:10-0500 Body mass index (BMI) [Ratio] 29.62 kg/m2 Wl 1 [facility] 03-08-2024 10:10-0500 Body weight 80.74 kg [facility] 1 [facility] 02-18-2024 11:43-0500 Body mass index (BMI) [Ratio] 29.29 kg/m2 Parish Courtney DO Work Phone: [facility] 02-18-2024 11:43-0500 Body weight 79.83 kg Parish Courtney DO Work Phone: [facility] 02-18-2024 11:43-0500 Diastolic blood pressure 72 mm[Hg] Parish Courtney DO Work Phone: [facility] 02-18-2024 11:43-0500 Systolic blood pressure 122 mm[Hg] Parish Courtney DO Work Phone: [facility] 12-12-2023 11:50-0400 Body temperature 98.91 [degF] [facility] 2 [facility] 12-12-2023 11:50-0400 Diastolic blood pressure 66 mm[Hg] [facility] 2 [facility] 12-12-2023 11:50-0400 Heart rate 92 /min [facility] 2 [facility] 12-12-2023 11:50-0400 Respiratory rate 18 /min Wl 2 [facility] 12-12-2023 11:50-0400 Systolic blood pressure 100 mm[Hg] [facility] 2 [facility] 12-12-2023 10:31-0400 Body mass index (BMI) [Ratio] 27.96 kg/m2 [facility] 2 [facility] 12-12-2023 10:31-0400 Body weight 76.2 kg [facility] 2 [facility] 12-01-2023 14:25-0400 Body height 165.1 cm Dominique Josh DISPLAY MECHANIC-DISTRICT OR DISTRICT OFFICE DIRECTOR Work Phone: [facility] 12-01-2023 14:25-0400 Body mass index (BMI) [Ratio] 27.89 kg/m2 Dominique Josh DISPLAY MECHANIC-DISTRICT OR DISTRICT OFFICE DIRECTOR Work Phone: [facility] 12-01-2023 14:25-0400 Body temperature 98.8 [degF] Dominique Josh DISPLAY MECHANIC-DISTRICT OR DISTRICT OFFICE DIRECTOR Work Phone: [facility] 12-01-2023 14:25-0400 Body weight 76.02 kg Dominique Josh DISPLAY MECHANIC-DISTRICT OR DISTRICT OFFICE DIRECTOR Work Phone: [facility] 12-01-2023 14:25-0400 Diastolic blood pressure 76 mm[Hg] Dominique Josh DISPLAY MECHANIC-DISTRICT OR DISTRICT OFFICE DIRECTOR Work Phone: [facility] 12-01-2023 14:25-0400 Heart rate 71 /min Dominique Josh DISPLAY MECHANIC-DISTRICT OR DISTRICT OFFICE DIRECTOR Work Phone: [facility] 12-01-2023 14:25-0400 Respiratory rate 16 /min Dominique Josh DISPLAY MECHANIC-DISTRICT OR DISTRICT OFFICE DIRECTOR Work Phone: [facility] 12-01-2023 14:25-0400 SaO2% (BldA) [Mass fraction] 99 % Dominique Josh DISPLAY MECHANIC-DISTRICT OR DISTRICT OFFICE DIRECTOR Work Phone: [facility] 12-01-2023 14:25-0400 Systolic blood pressure 111 mm[Hg] Dominique Josh DISPLAY MECHANIC-DISTRICT OR DISTRICT OFFICE DIRECTOR Work Phone: [facility] 10-31-2023 11:13-0400 Body temperature 98.6 [degF] [facility] 2 [facility] 10-31-2023 11:13-0400 Diastolic blood pressure 72 mm[Hg] [facility] 2 [facility] 10-31-2023 11:13-0400 Heart rate 85 /min [facility] 2 [facility] 10-31-2023 11:13-0400 Respiratory rate 18 /min [facility] 2 [facility] 10-31-2023 11:13-0400 Systolic blood pressure 112 mm[Hg] [facility] 2 [facility] 10-31-2023 09:51-0400 Body mass index (BMI) [Ratio] 27.81 kg/m2 [facility] 2 [facility] 10-31-2023 09:51-0400 Body weight 75.8 kg [facility] 2 [facility] 10-31-2023 08:50-0400 Body height 165.1 cm Sharda Montiel MD Work Phone: [facility] 10-31-2023 08:50-0400 Body mass index (BMI) [Ratio] 27.79 kg/m2 Sharda Montiel MD Work Phone: [facility] 10-31-2023 08:50-0400 Body weight 75.75 kg Sharda Montiel MD Work Phone: [facility] 10-31-2023 08:50-0400 Diastolic blood pressure 60 mm[Hg] Sharda Montiel MD Work Phone: [facility] 10-31-2023 08:50-0400 Systolic blood pressure 100 mm[Hg] Sharda Montiel MD Work Phone: [facility] 09-17-2023 09:46-0400 Body mass index (BMI) [Ratio] 27.06 kg/m2 Hilary Traci DISPLAY MECHANIC-DISTRICT OR DISTRICT OFFICE DIRECTOR Work Phone: [facility] 09-17-2023 09:46-0400 Body temperature 98.2 [degF] Hilary Traci DISPLAY MECHANIC-DISTRICT OR DISTRICT OFFICE DIRECTOR Work Phone: [facility] 09-17-2023 09:46-0400 Body weight 73.75 kg Hilary Traci DISPLAY MECHANIC-DISTRICT OR DISTRICT OFFICE DIRECTOR Work Phone: [facility] 09-17-2023 09:46-0400 Diastolic blood pressure 60 mm[Hg] Hilary Traci DISPLAY MECHANIC-DISTRICT OR DISTRICT OFFICE DIRECTOR Work Phone: [facility] 09-17-2023 09:46-0400 Heart rate 75 /min Hilary Traci DISPLAY MECHANIC-DISTRICT OR DISTRICT OFFICE DIRECTOR Work Phone: [facility] 09-17-2023 09:46-0400 SaO2% (BldA) [Mass fraction] 97 % Hilary Traci DISPLAY MECHANIC-DISTRICT OR DISTRICT OFFICE DIRECTOR Work Phone: [facility] 09-17-2023 09:46-0400 Systolic blood pressure 98 mm[Hg] Hilary Ruizsler DISPLAY MECHANIC-DISTRICT OR DISTRICT OFFICE DIRECTOR Work Phone: [facility] 09-15-2023 12:10-0400 Body temperature 98.71 [degF] [facility] 3 [facility] 09-15-2023 12:10-0400 Diastolic blood pressure 70 mm[Hg] [facility] 3 [facility] 09-15-2023 12:10-0400 Heart rate 75 /min [facility] 3 [facility] 09-15-2023 12:10-0400 Respiratory rate 20 /min [facility] 3 [facility] 09-15-2023 12:10-0400 Systolic blood pressure 117 mm[Hg] [facility] 3 [facility] 09-15-2023 10:43-0400 Body mass index (BMI) [Ratio] 26.89 kg/m2 [facility] 3 [facility] 09-15-2023 10:43-0400 Body weight 73.3 kg [facility] 3 [facility] 08-20-2023 14:15-0400 Body height 165.1 cm Hilary Correauessler DISPLAY MECHANIC-DISTRICT OR DISTRICT OFFICE DIRECTOR Work Phone: [facility] 08-20-2023 14:15-0400 Body mass index (BMI) [Ratio] 26.36 kg/m2 Hilary Aviles DISPLAY MECHANIC-DISTRICT OR DISTRICT OFFICE DIRECTOR Work Phone: [facility] 08-20-2023 14:15-0400 Body temperature 98.6 [degF] Hilary Correauessler DISPLAY MECHANIC-DISTRICT OR DISTRICT OFFICE DIRECTOR Work Phone: [facility] 08-20-2023 14:15-0400 Body weight 71.85 kg Hilary Correauessler DISPLAY MECHANIC-DISTRICT OR DISTRICT OFFICE DIRECTOR Work Phone: [facility] 08-20-2023 14:15-0400 Diastolic blood pressure 72 mm[Hg] Hilary Correauessler DISPLAY MECHANIC-DISTRICT OR DISTRICT OFFICE DIRECTOR Work Phone: [facility] 08-20-2023 14:15-0400 Heart rate 87 /min Hilary Correauessler DISPLAY MECHANIC-DISTRICT OR DISTRICT OFFICE DIRECTOR Work Phone: [facility] 08-20-2023 14:15-0400 SaO2% (BldA) [Mass fraction] 97 % Hilary Correauessler DISPLAY MECHANIC-DISTRICT OR DISTRICT OFFICE DIRECTOR Work Phone: [facility] 08-20-2023 14:15-0400 Systolic blood pressure 116 mm[Hg] Hilary Correauessler DISPLAY MECHANIC-DISTRICT OR DISTRICT OFFICE DIRECTOR Work Phone: [facility] 08-04-2023 14:48-0400 Body temperature 98.2 [degF] [facility] 2 [facility] 08-04-2023 14:48-0400 Diastolic blood pressure 77 mm[Hg] [facility] 2 [facility] 08-04-2023 14:48-0400 Heart rate 76 /min [facility] 2 [facility] 08-04-2023 14:48-0400 Respiratory rate 20 /min [facility] 2 [facility] 08-04-2023 14:48-0400 Systolic blood pressure 118 mm[Hg] [facility] 2 [facility] 08-04-2023 13:22-0400 Body mass index (BMI) [Ratio] 27.19 kg/m2 [facility] 2 [facility] 08-04-2023 13:22-0400 Body weight 74.12 kg [facility] 2 [facility] 04-21-2023 13:05-0400 Body temperature 97.81 [degF] [facility] 4 [facility] 04-21-2023 13:05-0400 Diastolic blood pressure 75 mm[Hg] [facility] 4 [facility] 04-21-2023 13:05-0400 Heart rate 78 /min [facility] 4 [facility] 04-21-2023 13:05-0400 Respiratory rate 20 /min [facility] 4 [facility] 04-21-2023 13:05-0400 Systolic blood pressure 117 mm[Hg] [address] 04-21-2023 10:29-0400 Body mass index (BMI) [Ratio] 27.89 kg/m2 [address] 04-21-2023 10:29-0400 Body weight 76.[address] 02-20-2023 11:48-0500 Body height 165.1 cm Lyndsey Anders MD Work Phone: [facility] 02-20-2023 11:48-0500 Body mass index (BMI) [Ratio] 27.46 kg/m2 Lyndsey Anders MD Work Phone: [facility] 02-20-2023 11:48-0500 Body temperature 98.91 [degF] Lyndsey Anders MD Work Phone: [facility] 02-20-2023 11:48-0500 Body weight 74.84 kg Lyndsey Anders MD Work Phone: [facility] 02-20-2023 11:48-0500 Diastolic blood pressure 72 mm[Hg] Lyndsey Anders MD Work Phone: [facility] 02-20-2023 11:48-0500 Heart rate 104 /min Lyndsey Anders MD Work Phone: [facility] 02-20-2023 11:48-0500 SaO2% (BldA) [Mass fraction] 99 % Lyndsey Anders MD Work Phone: [facility] 02-20-2023 11:48-0500 Systolic blood pressure 114 mm[Hg] Lyndsey Anders MD Work Phone: [facility] 02-17-2023 14:26-0500 Body temperature 99.1 [degF] [address] 02-17-2023 14:26-0500 Diastolic blood pressure 77 mm[Hg] [address] 02-17-2023 14:26-0500 Heart rate 100 /min [address] 02-17-2023 14:26-0500 SaO2% (BldA) [Mass fraction] 97 % [address] 02-17-2023 14:26-0500 Systolic blood pressure 117 mm[Hg] [address] 02-17-2023 11:45-0500 Body mass index (BMI) [Ratio] 27.69 kg/m2 [address] 02-17-2023 11:45-0500 Body weight 75.[address] 02-17-2023 11:45-0500 Respiratory rate 20 /min [address] 02-06-2023 12:54-0500 Diastolic blood pressure 69 mm[Hg] P[facility] 3 [facility] 02-06-2023 12:54-0500 Heart rate 92 /min P[facility] 3 [facility] 02-06-2023 12:54-0500 Respiratory rate 18 /min Pfo 3 [facility] [employer] [facility] 02-06-2023 12:54-0500 SaO2% (BldA) [Mass fraction] 100 % Pfo 3 [facility] 02-06-2023 12:54-0500 Systolic blood pressure 104 mm[Hg] Pfo 3 [facility] 02-06-2023 11:37-0500 Body height 165.1 cm Pfo 3 [facility] 02-06-2023 11:37-0500 Body mass index (BMI) [Ratio] 27.46 kg/m2 P[facility] 3 [facility] 02-06-2023 11:37-0500 Body temperature 98.4 [degF] P[facility] 3 [facility] [employer] 02-06-2023 11:37-0500 Body weight 74.84 kg Pfo 3 [facility] Encounters Encounter Date Encounter Type Care Provider Facility Start: 05-04-2024 End: 05-04-2024 Chart abstracting Deepthi Tomas MD Work Phone: [facility] Start: 04-26-2024 End: 04-26-2024 Bamboo flowsheet Parish Courtney DO Work Phone: [facility] Start: 04-26-2024 End: 04-26-2024 Bamboo flowsheet Parish Courtney DO Work Phone: [facility] Start: 04-26-2024 End: 04-26-2024 flow sheet Parish Courtney DO Work Phone: [facility] Comment on above: Second trimester pre gnancy; 23 weeks gestation of ; Crohn's disease with complication, unspecified gastrointestinal tract location (CMS/HCC) Start: 04-26-2024 End: 04-26-2024 ambulatory PARISH COURTNEY Not Available Start: 04-23-2024 End: 04-23-2024 Orders Only Sharda Montiel MD Work Phone: [facility] Comment on above: Ulcerative colitis w ith other complication, unspecified location (CMS-HCC) (Primary Dx) Start: 04-22-2024 End: 04-22-2024 Orders Only [facility] MD [facility] Comment on above: Crohn's disease of c olon with other complication (CMS-HCC) (Primary Dx) Start: 04-21-2024 End: 04-21-2024 ambulatory YAQUELIN HORNE Not Available Start: 04-20-2024 End: 04-20-2024 Orders Only Sharda Montiel MD Work Phone: [facility] of [facility] Start: 04-19-2024 End: 04-21-2024 Telephone encounter Sharda Montiel MD Work Phone: [facility] Start: 04-19-2024 End: 04-19-2024 ambulatory HILARY A [facility] Start: 04-19-2024 End: 04-19-2024 Office outpatient visit 40 minutes Sharda Montiel MD Work Phone: [facility] Comment on above: Thrombocytopenia (CM S-HCC) (Primary Dx); Crohn's disease with complication, unspecified gastrointestinal tract location (CMS-HCC) Start: 04-19-2024 End: 04-19-2024 ambulatory [facility] 1 [facility] Comment on above: Crohn's [...] Department Unsolicited Start: 03-08-2024 End: 03-08-2024 ambulatory [facility] 1 [facility] [...] Orders Only Sharda Montiel MD Work Phone: [facility] Comment on above: Therapeutic drug mon itoring (Primary Dx) Start: 01-31-2024 End: 01-31-2024 Emergency department patient visit [facility] Start: 01-26-2024 End: 01-26-2024 ambulatory [facility] Start: 01-26-2024 End: 01-26-2024 ambulatory [facility] Start: 01-23-2024 End: 01-23-2024 ambulatory YAQUELIN HORNE Not Available Start: 01-23-2024 End: 01-23-2024 Office outpatient visit 5 minutes [facility] Courtney Nurse [facility] Comment on above: GA: 11w2d Start: 01-13-2024 End: 01-13-2024 Orders Only Dominique Moya APRN-DISTRICT OR DISTRICT OFFICE DIRECTOR Work Phone: [facility] Comment on above: Iron deficiency anem ia due to chronic blood loss (Primary Dx); Iron malabsorption; Iron deficiency anemia, unspecified Start: 01-06-2024 End: 01-06-2024 Orders Only Dominique HALEY Work Phone: [facility] Comment on above: Iron deficiency anem ia due to chronic blood loss (Primary Dx); Iron malabsorption; Iron deficiency anemia, unspecified Start: 01-03-2024 End: 01-03-2024 Emergency department patient visit HILARY Us TRACI [facility] Start: 12-17-2023 End: 12-18-2023 Telephone encounter Raf Zarco RN [facility] Start: 12-12-2023 End: 12-12-2023 ambulatory [facility] 2 [facility] Comment on above: Crohn's disease of b oth small and large intestine with intestinal obstruction (CMS-HCC) (Primary Dx) Start: 12-01-2023 End: 12-01-2023 Office outpatient visit 25 minutes Dominique Moya APRN-DISTRICT OR DISTRICT OFFICE DIRECTOR Work Phone: [facility] Comment on above: Iron deficiency (Ping hussein Dx); Crohn's disease of both small and large intestine with intestinal obstruction (CMS-HCC); Chronic fatigue; Leg cramps; Noncompliance; Iron deficiency anemia due to chronic blood loss; Iron malabsorption; Iron deficiency anemia, unspecified Start: 12-01-2023 End: 12-01-2023 ambulatory DOMINIQUE MOYA [facility] Start: 12-01-2023 End: 12-01-2023 ambulatory MJ Aguilar JUAREZ [facility] Start: 10-31-2023 End: 10-31-2023 Office outpatient visit 25 minutes Sharda Montiel MD [facility] Comment on above: Therapeutic drug mon itoring (Primary Dx); Crohn's disease of both small and large intestine with other complication (CMS-HCC) Start: 10-31-2023 End: 10-31-2023 ambulatory [facility] 2 [facility] Comment on above: Crohn's disease of b oth small and large intestine with intestinal obstruction (CMS-HCC) (Primary Dx) Start: 09-17-2023 End: 09-17-2023 ambulatory [facility] Start: 09-17-2023 End: 09-17-2023 Office outpatient visit 25 minutes Hilary Aviles DISPLAY MECHANIC-DISTRICT OR DISTRICT OFFICE DIRECTOR Work Phone: [facility] Comment on above: Current moderate epi sode of major depressive disorder without prior episode (CMS-HCC) (Primary Dx); Crohn's disease of both small and large intestine with intestinal obstruction (CMS-HCC) Start: 09-15-2023 End: 09-16-2023 Telephone encounter Sharda Montiel MD Work Phone: [facility] Start: 09-15-2023 End: 09-15-2023 ambulatory [facility] 3 [facility] Comment on above: Crohn's disease of b oth small and large intestine with intestinal obstruction (CMS-HCC) (Primary Dx) Start: 09-03-2023 End: 09-03-2023 Telephone encounter Hilary Aviles DISPLAY MECHANIC-DISTRICT OR DISTRICT OFFICE DIRECTOR Work Phone: [facility] Start: 09-03-2023 End: 09-03-2023 ambulatory [facility] Start: 09-03-2023 End: 09-03-2023 Phys/qhp telephone evaluation 11-20 min Hilary Aviles DISPLAY MECHANIC-DISTRICT OR DISTRICT OFFICE DIRECTOR Work Phone: [facility] Comment on above: Reactive depression (Primary Dx) Start: 08-20-2023 End: 08-20-2023 ambulatory [facility] Start: 08-20-2023 End: 08-20-2023 Office outpatient visit 25 minutes Hilary Aviles DISPLAY MECHANIC-DISTRICT OR DISTRICT OFFICE DIRECTOR Work Phone: [facility] Comment on above: Anxiety (Primary Dx) Start: 08-04-2023 End: 08-04-2023 ambulatory [facility] 2 [facility] [...] [facility] Start: 03-19-2023 End: 03-19-2023 ambulatory [facility] Start: 02-20-2023 End: 02-20-2023 Office outpatient visit 25 minutes Lyndsey Anders MD Work Phone: [facility] Comment on above: Reactive airway dise ase with acute exacerbation, unspecified asthma severity, unspecified whether persistent (Primary Dx); Shortness of breath; COVID-19; Sinusitis, unspecified chronicity, unspecified location Start: 02-20-2023 End: 02-20-2023 ambulatory [facility] Start: 02-17-2023 End: 02-17-2023 ambulatory [facility] 3 [facility] Comment on above: Crohn's disease of b oth small and large intestine with intestinal obstruction (CMS-HCC) (Primary Dx) Start: 02-06-2023 End: 02-06-2023 ambulatory MJ PIZARRO [facility] Comment on above: Iron deficiency anem ia due to chronic blood loss (Primary Dx); Iron deficiency anemia, unspecified; Iron malabsorption Start: 04-30-2022 End: 04-30-2022 ambulatory SEBASTIAN HERRING Facility: Start: 12-03-2016 End: 12-04-2016 Ambulatory SAMARA HERNANDEZ [facility] Start: 11-19-2016 End: 11-26-2016 Ambulatory SAMARA HERNANDEZ [facility] Start: 10-29-2016 End: 10-30-2016 Ambulatory SAMARA HERNANDEZ [facility] Start: 10-01-2016 End: 10-01-2016 Ambulatory SAMARA HERNANDEZ [facility] Start: 08-29-2016 End: 08-29-2016 Ambulatory SAMARA HERNANDEZ [facility] Procedures Date Procedure Procedure Detail Performing Clinician Start: 04-26-2024 Urnls dip stick/tabl et rgnt non-auto w/o micrscp Parish Courtney DO Work Phone: Start: 03-24-2024 US OB ANATOMY Parish Mac io DO Work Phone: Start: 03-24-2024 US OB CERVICAL LENGTH C orey Courtney DO Work Phone: Start: 03-24-2024 UNLISTED LAB TEST Not I n System Ref Prov Start: 03-24-2024 ULTRASOUND OFFICE Not I n System Ref Prov Start: 03-17-2024 RECURRENT VAGINITIS (HTRX) Yaquelin BELCHER Work Phone: Start: 03-11-2024 US OB CERVICAL LENGTH C orey Courtney DO Work Phone: Start: 02-18-2024 Urnls dip stick/tabl et rgnt non-auto w/o micrscp Parish Courtney DO Work Phone: Start: 02-14-2024 Syphilis test non-treponemal antibody qual Not In System Ref Prov Start: 01-04-2025 ALL CBC WITH AUTO DIFF Parish Courtney DO Work Phone: Start: 01-23-2024 Urnls dip stick/tabl et rgnt non-auto w/o micrscp Parish Courtney DO Work Phone: Start: 12-01-2023 Follow-up visit Follow-up DOMINIQUE MOYA Start: 10-31-2023 Follow-up visit Follow-up SHARDA MONTIEL Start: 09-17-2023 Adult depression scr eening assessment Hialry Aviles DISPLAY MECHANIC-DISTRICT OR DISTRICT OFFICE DIRECTOR Work Phone: Start: 09-17-2023 Microscopic observat ion [Identifier] in Cervix by Cyto stain Sharda Montiel MD Work Phone: Start: 08-20-2023 Adult depression scr eening assessment Hilary Aviles DISPLAY MECHANIC-DISTRICT OR DISTRICT OFFICE DIRECTOR Work Phone: Start: 11-23-2020 Adult depression scr eening assessment Pfo 3 Plan of Treatment Date Care Activity Detail Author Start: 09-16-2026 Screening for malign ant neoplasm of cervix Pap Smear [facility] Start: 04-19-2025 Adult BMI Screening Adult BMI Screen ing [facility] Start: 04-19-2025 Tobacco Screening Tobacco Screening [facility] Start: 01-30-2025 Adult BMI Screening Adult BMI Screen ing [facility] Start: 01-30-2025 Tobacco Screening Tobacco Screening [facility] Start: 01-02-2025 Adult BMI Screening Adult BMI Screen ing [facility] Start: 01-02-2025 Tobacco Screening Tobacco Screening [facility] Start: 12-11-2024 Adult BMI Screening Adult BMI Screen ing [facility] Start: 12-02-2024 End: 12-02-2024 Patient encounter procedure 12/02/2024 10:15 AM EDT Office Visit [facility] - [facility] Oncology [address] [place] [phone] Mj Pizarro MD [facility] [address] [place] [address] [facility] Start: 10-30-2024 Adult BMI Screening Adult BMI Screen ing [facility] Start: 10-30-2024 Tobacco Screening Tobacco Screening [facility] Start: 09-16-2024 Adult BMI Screening Adult BMI Screen ing [facility] Start: 09-16-2024 Depression Screening Depression Scre ening [facility] Start: 09-16-2024 Tobacco Screening Tobacco Screening [facility] Start: 09-14-2024 Adult BMI Screening Adult BMI Screen ing [facility] Start: 09-02-2024 Tobacco Screening Tobacco Screening [facility] Start: 08-19-2024 Adult BMI Screening Adult BMI Screen ing [facility] Start: 08-19-2024 Depression Screening Depression Scre ening [facility] Start: 08-19-2024 Tobacco Screening Tobacco Screening [facility] Start: 08-03-2024 Adult BMI Screening Adult BMI Screen ing [facility] Start: 06-28-2024 End: 06-28-2024 ambulatory 06/28/2024 10:30 AM EDT Infusion [facility] [address] [address] [facility] Start: 06-02-2024 End: 06-02-2024 Patient encounter procedure 06/02/2024 8:45 AM EDT Office Visit Maternal- Medicine at [facility] [address] [place] [phone] Deepthi Tomas MD [address] [place] [address] Maternal- Medicine at [facility] Start: 06-02-2024 End: 06-02-2024 Patient encounter procedure 06/02/2024 7:30 AM EDT Appointment [facility] [address] [place] [address] [facility] - [facility] Start: 05-31-2024 End: 05-31-2024 ambulatory 05/31/2024 10:00 AM EDT Infusion [facility] [address] [facility] [place] [address] [facility] Start: 05-24-2024 End: 05-24-2024 ambulatory 05/24/2024 10:30 AM EDT Infusion [facility]fusion [address] [facility] [address] [place] [address] [facility] Start: 05-12-2024 End: 05-12-2024 Patient encounter procedure 05/12/2024 2:30 PM EDT Routine [facility] [address] [place] [phone] Yaquelin Horne PA [address] [place], [place] [phone] [facility] Start: 04-26-2024 End: 04-26-2024 Patient encounter procedure 04/26/2024 10:10 AM EDT Office Visit [facility] [address] [place] [address] Parish Valdez DO [address] [place], [place] [phone] Arrived [facility] Comment on above: Arrived Start: 04-21-2024 End: 04-21-2024 Professional / ancillary services management 04/21/2024 11:00 AM EDT Ancillary Procedure [facility] [address] [place] [phone] [facility] Start: 04-20-2024 Adult BMI Screening [facility] Start: 04-19-2024 End: 04-19-2025 Cyanocobalamin vitamin b-12 Vitamin B12 Lab Routine Crohn's disease with complication, unspecified gastrointestinal tract location ([facility]) Expected: 04/19/2024, Expires: 04/19/2025 [facility] Comment on above: Expected: 04/19/2024 , Expires: 04/19/2025 Start: 04-19-2024 End: 04-19-2024 ambulatory 04/19/2024 10:30 AM EDT Infusion [facility] [address] [facility] [address] [place] [address] [facility] Start: 04-19-2024 End: 04-19-2024 Patient encounter procedure [facility] Start: 04-14-2024 End: 04-14-2025 CBC panel - Blood by Automated count CBC Lab Routine Diabetes mellitus screening Expected: 04/14/2024 (Approximate), Expires: 04/14/2025 [facility] Work Phone: Comment on above: Expected: 04/14/2024 (Approximate), Expires: 04/14/2025 Start: 04-14-2024 End: 04-14-2025 Measurement of glucose 1 hour after glucose challenge for glucose tolerance test Glucose tolerance, 1 hour Lab Routine Diabetes mellitus screening Expected: 04/14/2024 (Approximate), Expires: 04/14/2025 [facility] Comment on above: Expected: 04/14/2024 (Approximate), Expires: 04/14/2025 Start: 04-14-2024 End: 04-14-2024 Patient encounter procedure 04/14/2024 1:40 PM EST Routine [facility] [address] [place] [phone] Parish Valdez, DO [address] [facility] [address] [place] [place] [address] [facility] Start: 03-17-2024 End: 09-14-2024 Alpha fetoprotein, maternal Alpha fetoprotein, maternal Lab Routine Second trimester 19 weeks gestation of Expected: 03/17/2024 (Approximate), Expires: 09/14/2024 [facility] Comment on above: Expected: 03/17/2024 (Approximate), Expires: 09/14/2024 Start: 03-17-2024 End: 03-17-2025 US for US OB 14+ weeks anatomy scan Imaging Routine Screening, , for anatomic survey Expected: 03/17/2024, Expires: 03/17/2025 [facility] Comment on above: Expected: 03/17/2024 , Expires: 03/17/2025 Start: 03-17-2024 End: 03-17-2024 Patient encounter procedure 03/17/2024 10:30 AM EST Routine [facility] [address] [place] [address] Yaquelin Horne PA [address] [place] [address] [facility] Start: 03-08-2024 End: 03-08-2024 ambulatory 03/08/2024 10:00 AM EST Infusion [facility] [address] [facility] [place] [phone] [facility] Start: 02-21-2024 Adult BMI Screening Adult BMI Screen ing [facility] Start: 02-21-2024 Tobacco Screening Tobacco Screening [facility] Start: 02-18-2024 Adult BMI Screening Adult BMI Screen ing [facility] Start: 02-18-2024 End: 02-18-2024 Patient encounter procedure 02/18/2024 11:30 AM EST Routine [facility] [address] [place] [address] Parish Valdez, [address] [place] [address] [facility] Start: 02-07-2024 Tobacco Screening Tobacco Screening [facility] Start: 01-31-2024 Adult BMI Screening Adult BMI Screen ing [facility] Start: 01-31-2024 Tobacco Screening Tobacco Screening [facility] Start: 01-26-2024 End: 01-26-2024 ambulatory 01/26/2024 10:00 AM EST Infusion [facility] [address] [facility] [place] [phone] [facility] Start: 01-23-2024 End: 01-22-2025 ABO/Rh ABO/Rh Lab Routine Missed menses , unspecified gestational age Expected: 01/23/2024 (Approximate), Expires: 01/22/2025 [facility] Healthcare Comment on above: Expected: 01/23/2024 (Approximate), Expires: 01/22/2025 Start: 01-23-2024 End: 01-22-2025 Blood type and Indirect antibody screen panel - Blood Type and screen Lab Routine Missed menses , unspecified gestational age Expected: 01/23/2024 (Approximate), Expires: 01/22/2025 [facility] Work Phone: Comment on above: Expected: 01/23/2024 (Approximate), Expires: 01/22/2025 Start: 01-23-2024 End: 01-22-2025 Drugs of abuse panel - Urine by Screen method Rapid drug screen, urine Lab Routine , unspecified gestational age Encounter for supervision of normal first in first trimester Expected: 01/23/2024 (Approximate), Expires: 01/22/2025 [facility] Comment on above: Expected: 01/23/2024 (Approximate), Expires: 01/22/2025 Start: 01-23-2024 End: 01-22-2025 US Pelvis transvaginal US OB transvaginal Imaging Routine Missed menses Expected: 01/23/2024 (Approximate), Expires: 01/22/2025 [facility] Healthcare Comment on above: Expected: 01/23/2024 (Approximate), Expires: 01/22/2025 Start: 12-22-2023 End: 12-22-2023 Patient encounter procedure 12/22/2023 3:40 PM EST Office Visit [facility] [address] [place] [address] [place] [phone] Hilary Aviles, DISPLAY MECHANIC-DISTRICT OR DISTRICT OFFICE DIRECTOR [address] [facility] [address], [address] [place], [place] [phone] [facility] Start: 12-12-2023 End: 12-12-2023 ambulatory 12/12/2023 10:00 AM EDT Infusion [facility] [address] [facility] [address] [place] [phone] [facility] Start: 11-20-2023 End: 11-20-2023 Patient encounter procedure 11/20/2023 1:00 PM EDT Office Visit [facility] - [facility] [address] [place] [address] [place] [address] [place] [address] [address] [place] [address] [facility] Start: 11-19-2023 End: 11-19-2023 Patient encounter procedure 11/19/2023 9:40 AM EDT [facility] [address] [facility] [place] [address] [place] [phone] Hilary Aviles, DISPLAY MECHANIC-DISTRICT OR DISTRICT OFFICE DIRECTOR [address] [facility], [place], [place] [phone] [facility] Start: 10-31-2023 End: 10-30-2024 C-reactive protein C-reactive protein Lab Routine Crohn's disease of both small and large intestine with other complication ([facility]) Expected: 10/31/2023, Expires: 10/30/2024 [facility] Comment on above: Expected: 10/31/2023 , Expires: 10/30/2024 Start: 10-31-2023 End: 10-30-2024 Cyanocobalamin vitamin b-12 Vitamin B12 Lab Routine Crohn's disease of both small and large intestine with other complication ([facility]) Expected: 10/31/2023, Expires: 10/30/2024 [facility] Comment on above: Expected: 10/31/2023 , Expires: 10/30/2024 Start: 10-31-2023 End: 10-30-2024 Erythrocyte sedimentation rate Erythrocyte Sedimentation Rate (ESR) Lab Routine Crohn's disease of both small and large intestine with other complication ([facility]) Expected: 10/31/2023, Expires: 10/30/2024 [facility] Comment on above: Expected: 10/31/2023 , Expires: 10/30/2024 Start: 10-31-2023 End: 10-31-2023 ambulatory 10/31/2023 9:30 AM EDT Infusion [facility] [address] [place] [address] [address] [place] [address] [facility] Start: 10-31-2023 End: 10-31-2023 Patient encounter procedure 10/31/2023 9:00 AM EDT Office Visit [facility] [address] [place] [address] [address] [place] [phone] Sharda Montiel MD [address] [facility], [address] [place] [address] [facility] Start: 10-27-2023 End: 10-27-2023 ambulatory 10/27/2023 12:00 PM EDT Infusion [facility] [address] [place] [address] [address] [place] [phone] [facility] Start: 10-27-2023 End: 10-27-2023 Patient encounter procedure 10/27/2023 11:30 AM EDT Office Visit [facility] [address] [place] [address] [address] [place] [address] Sharda Montiel MD [address] [facility], [address] [place] [address] [facility] Start: 10-12-2023 Influenza vaccination Influenza Vacc ine [facility] Start: 09-17-2023 End: 09-17-2023 Patient encounter procedure 09/17/2023 9:20 AM EDT Office Visit [facility] [address] [place] [phone] Hilary Aviles, DISPLAY MECHANIC-DISTRICT OR DISTRICT OFFICE DIRECTOR [address] [facility] [address], [place] [facility] [place] [address] [facility] Start: 09-15-2023 End: 09-15-2023 ambulatory 09/15/2023 10:00 AM EDT Infusion [facility] [address] [place], [place] [address] [address] [facility] Start: 06-17-2023 End: 06-17-2023 Patient encounter procedure 06/17/2023 11:15 AM EDT Office Visit [facility] [address] [place], [place] [address] [address] Meaghan King PA-C [address] [place] [address] [facility] Start: 06-10-2023 End: 06-10-2023 ambulatory 06/10/2023 10:30 AM EDT Infusion [facility] [address] [place], [place] [address] [address] [facility] Start: 04-21-2023 End: 04-21-2023 ambulatory 04/21/2023 10:00 AM EDT Infusion [facility] [address] [place], [place] [address] [address] [facility] Start: 03-31-2023 End: 03-31-2023 ambulatory 03/31/2023 10:00 AM EST Infusion [facility] [address] [place], [place] [address] [address] [facility] Start: 02-17-2023 End: 02-17-2023 ambulatory 02/17/2023 11:30 AM EST Infusion [facility] [address] [place] [address] [facility] Start: 10-11-2022 Influenza vaccination Influenza Vacc ine [facility] Start: 11-23-2021 Depression Screening Depression Scre ening [facility] Start: 2010 Screening for malign ant neoplasm of cervix Pap Smear [facility] Start: 2008 DTaP,Tdap and Td Vaccines (1 - Tdap) DTaP,Tdap and Td Vaccines (1 - Tdap) [facility] Start: 11-11-2007 Adult BMI Follow Up Plan Adult BMI F ollow Up Plan [facility] Bacteria identified in Urine by Culture Urine culture Microbiology Routine Missed menses Ordered: 01/23/2024 [facility] Comment on above: Ordered: 01/23/2024 End: 10-30-2024 Basic metabolic 2000 panel - Serum or Plasma Basic Metabolic Panel Lab Routine Therapeutic drug monitoring Crohn's disease of both small and large intestine with other complication ([facility]) 1 Occurrences starting 10/31/2023 until 10/30/2024 [facility] Comment on above: 1 Occurrences starti ng 10/31/2023 until 10/30/2024 End: 10-30-2024 Calprotectin, F Calprotectin, F Lab Routine Crohn's disease of both small and large intestine with other complication ([facility]) 1 Occurrences starting 10/31/2023 until 10/30/2024 [employer] Work Phone: Comment on above: 1 Occurrences starti ng 10/31/2023 until 10/30/2024 End: 04-22-2025 Calprotectin, F Calprotectin, F Lab Routine Crohn's disease of colon with other complication ([facility]) 1 Occurrences starting 04/22/2024 until 04/22/2025 [employer] Work Phone: Comment on above: 1 Occurrences starti ng 04/22/2024 until 04/22/2025 End: 04-23-2025 Calprotectin, F Calprotectin, F Lab Routine Ulcerative colitis with other complication, unspecified location ([facility]) 1 Occurrences starting 04/23/2024 until 04/23/2025 [employer] Work Phone: Comment on above: 1 Occurrences starti ng 04/23/2024 until 04/23/2025 End: 10-30-2024 CBC panel - Blood by Automated count CBC without diff Lab Routine Therapeutic drug monitoring 1 Occurrences starting 10/31/2023 until 10/30/2024 [facility] Comment on above: 1 Occurrences starti ng 10/31/2023 until 10/30/2024 CBC W Auto Different ial panel - Blood CBC and differential Lab Routine Missed menses , unspecified gestational age Ordered: 01/23/2024 [facility] Comment on above: Ordered: 01/23/2024 End: 04-19-2025 CBC W Auto Differential panel - Blood CBC auto differential Lab Routine Thrombocytopenia ([facility]) 1 Occurrences starting 04/19/2024 until 04/19/2025 [employer] Work Phone: Comment on above: 1 Occurrences starti ng 04/19/2024 until 04/19/2025 CHLAMYDIA TRACHOMATI S (GENITO/STI) CHLAMYDIA TRACHOMATIS (GENITO/STI) Lab Routine STD exposure Ordered: 03/17/2024 [facility] Comment on above: Ordered: 03/17/2024 Hemoglobin A1c/Hemoglobin.total in Blood Hemoglobin A1c Lab Routine Missed menses , unspecified gestational age Ordered: 01/23/2024 [facility] Comment on above: Ordered: 01/23/2024 Hepatitis B virus surface Ag [Presence] in Serum or Plasma by Immunoassay Hepatitis B surface antigen Lab Routine Missed menses , unspecified gestational age Ordered: 01/23/2024 [facility] Comment on above: Ordered: 01/23/2024 Hepatitis C virus Ab [Presence] in Serum or Plasma by Immunoassay Hepatitis C antibody Lab Routine Missed menses , unspecified gestational age Ordered: 01/23/2024 [facility] Comment on above: Ordered: 01/23/2024 HIV-1/HIV-2 antigen/antibody combination immunoassay HIV-1 and HIV-2 antibodies Lab Routine Missed menses , unspecified gestational age Ordered: 01/23/2024 [facility] Comment on above: Ordered: 01/23/2024 End: 10-30-2024 Liver panel Liver panel Lab Routine Therapeutic drug monitoring Crohn's disease of both small and large intestine with other complication ([facility]) 1 Occurrences starting 10/31/2023 until 10/30/2024 [facility] Comment on above: 1 Occurrences starti ng 10/31/2023 until 10/30/2024 End: 06-08-2024 Mycobacterium TB by Quantiferon Gold Mycobacterium TB by Quantiferon Gold Lab Routine Crohn's disease of both small and large intestine with intestinal obstruction ([facility]) 1 Occurrences starting 06/09/2023 until 06/08/2024 [employer] Work Phone: Comment on above: 1 Occurrences starti ng 06/09/2023 until 06/08/2024 Neisseria gonorrhoea e DNA [Presence] in Unspecified specimen by ROBERT with probe detection Neisseria gonorrhea DNA probe, direct Lab Routine STD exposure Ordered: 03/17/2024 [facility] Comment on above: Ordered: 03/17/2024 End: 02-07-2023 Oxygen Therapy - Maintain SpO2: 90% or greater; *COMMERCIAL ARTIST LETTERING Guidelines for O2: Yes; Document: [email or web address] [email or web address]/Or ders/Respiratory%20Care% 20Guidelines/CPG%20Oxyge n%[email or web address] Oxygen Therapy - Maintain SpO2: 90% or greater; *COMMERCIAL ARTIST LETTERING Guidelines for O2: Yes; Document: [email or web address]/[email or web address]_Reference/Orde rs/Respiratory%20Care%20G uidelines/CPG%20Oxygen%20 2016.pdf Respiratory Care STAT Iron deficiency anemia due to chronic blood loss Iron deficiency anemia, unspecified Iron malabsorption As Needed for 1 Occurrences starting 02/06/2023 until 02/07/2023 [employer] Work Phone: Comment on above: As [...] persistent 1 Occurrences starting 02/20/2023 until 02/21/2024 [employer] Work Phone: Comment on above: 1 Occurrences starti ng 02/20/2023 until 02/21/2024 Reagin Ab [Presence] in Serum by RPR RPR Lab Routine Missed menses , unspecified gestational age Ordered: 01/23/2024 [facility] [employer] Comment on above: Ordered: 01/23/2024 Rubella antibody, IgG Rubella an tibody, IgG Lab Routine Missed menses , unspecified gestational age Ordered: 01/23/2024 [facility] Comment on above: Ordered: 01/23/2024 SURESWAB(R) ADVANCED VAGINITIS PLUS, TMA SURESWAB(R) ADVANCED VAGINITIS PLUS, TMA Pathology and Cytology Routine Vaginal discharge Ordered: 03/17/2024 [facility] Work Phone: Comment on above: Ordered: 03/17/2024 End: 02-02-2025 Thiopurine Metabs Thiopurine Metabs Lab Routine Therapeutic drug monitoring 1 Occurrences starting 02/03/2024 until 02/02/2025 [employer] Work Phone: Comment on above: 1 Occurrences starti ng 02/03/2024 until 02/02/2025 End: 10-30-2024 Thiopurine Metabs Thiopurine Metabs Lab Routine Therapeutic drug monitoring 1 Occurrences starting 10/31/2023 until 10/30/2024 [employer] Comment on above: 1 Occurrences starti ng 10/31/2023 until 10/30/2024 End: 10-30-2024 Vitamin D 25 hydroxy Vitamin D 25 hydroxy Lab Routine Crohn's disease of both small and large intestine with other complication ([facility]) 1 Occurrences starting 10/31/2023 until 10/30/2024 [employer] Comment on above: 1 Occurrences starti ng 10/31/2023 until 10/30/2024 End: 04-19-2025 Vitamin D 25 hydroxy Vitamin D 25 hydroxy Lab Routine Crohn's disease with complication, unspecified gastrointestinal tract location ([facility]) 1 Occurrences starting 04/19/2024 until 04/19/2025 [facility] Comment on above: 1 Occurrences starti ng 04/19/2024 until 04/19/2025 Payers Date Payer Category Payer Medicaid [employer] MEDICAID [facility] MEDICAID [id number] 2022-Present [address] [place] [address] [id number] 2022 Medicaid [id number] 2021 Commercial Managed C are - POS [employer] [id number] 2021 Managed Care HMO (unspecified) [employer] [id number] 2021 Private Health Insurance [employer] AETNA POS II [id number] 2021-Present [phone] [address] [place] [address] [id number] [id number] 1989 Unknown [id number] 2.16.840.1.802556.3.579. 2.593 1989 Unknown [id number] 2.16.840.1.484172.3.579. 2.1286 1989 Unknown [id number] 2.16.840.1.890875.3.579. 2.1286 1989 Unknown [id number] 2.16.840.1.597994.3.579. 2.1286 1989 Unknown [id number] 2.16.840.1.456566.3.579. 2.1286 1989 Unknown [id number] 2.16.840.1.128299.3.579. 2.1286 1989 Unknown [id number] 2.16.840.1.792246.3.579. 2.1286 1989 Unknown [id number] 2.16.840.1.964671.3.579. 2.1286 1989 Unknown [id number] 2.16.840.1.931846.3.579. 2.1286 1989 Unknown [id number] 2.16.840.1.955617.3.579. 2.1286 1989 Unknown [id number] 2.16.840.1.693728.3.579. 2.1286 1989 Unknown [id number] 2.16.840.1.844216.3.579. 2.1286 1989 Unknown [id number] 2.16.840.1.908465.3.579. 2.1286 1989 Unknown [id number] 2.16.840.1.548505.3.579. 2.1286 1989 Unknown [id number] 2.16.840.1.947916.3.579. 2.1286 1989 Unknown [id number] 2.16.840.1.340190.3.579. 2.1286 1989 Unknown [id number] 2.16.840.1.734205.3.579. 2.1286 1989 Unknown [id number] 2.16.840.1.931278.3.579. 2.1286 1989 Unknown [id number] 2.16.840.1.046844.3.579. 2.1286 1989 Unknown [id number] 2.16.840.1.960055.3.579. 2.1286 1989 Unknown [id number] 2.16.840.1.200396.3.579. 2.1286 1989 Unknown [id number] 2.16.840.1.274466.3.579. 2.1286 1989 Unknown [id number] 2.16.840.1.935882.3.579. 2.1286 1989 Unknown [id number] 2.16.840.1.424245.3.579. 2.1259 1989 Unknown [id number] 2.16.840.1.320879.3.579. 2.9 1989 Unknown [id number] 2.16.840.1.810188.3.579. 2.9 1989 Unknown [id number] 2.16.840.1.811368.3.579. 2.9 1989 Unknown [id number] 2.16.840.1.574374.3.579. 2.1259 1989 Unknown [id number] 2.16.840.1.350214.3.579. 2.9 1989 Unknown [id number] 2.16.840.1.976973.3.579. 2.1259 1959 Private Health Insurance [id number] Social History Date Type Detail Facility Start: 12-27-2021 End: 10-09-2022 Tobacco smoking status [facility] Never smoked tobacco [facility] Start: 12-27-2021 End: 10-09-2022 Tobacco use and exposure Smokeless tobacco non-user [facility] Start: 01-23-2024 End: 03-17-2024 Alcoholic beverage intake Lifetime non-drinker (finding) [facility] Start: 02-29-2020 End: 09-15-2023 History of Social function [facility] Start: 02-29-2020 End: 09-15-2023 Tobacco use panel [facility] Start: 11-19-2023 [facility] Start: 1990 Sex assigned at Female [facility] Start: 09-12-2022 Gender identity Identifies as female gender (finding) [facility] Start: 09-12-2022 Sexual orientation Heterosexual (finding) [facility] Start: 01-31-2024 End: 05-04-2024 Alcoholic beverage intake Current non-drinker of alcohol (finding) [facility] Adolescent depressio n screening assessment 15 [facility] Start: 1990 Sex assigned at Not on file [facility] Start: 09-13-2014 Sex Female (finding) [facility] Goals Date Patient Goal Desired Activity [...] (FOLVITE) 1,000 mcg, Oral, Every morning HYDROcodone-acetaminophen ([place]) 5-325 MG tablet 1 tablet, Oral, Every [...] nursing note reviewed. Exam conducted with a marketing and promotions manager present. Vitals: Estimated body mass index is [...] disease with complication, unspecified gastrointestinal tract location ([facility]) K50.919 Return OB: Patient presents today for [...] [facility] not yet have a scheduled appointment but will reach back out to them to schedule related to non visualized stomach during anatomy scan. Documented by Kimi Simmons NP on behalf of: Parish Valdez DO documented in this encounter [facility] 04-19-2024 Miscellaneous Notes Biologic team, please plan [...] is 08/11/24, but planned delivery is 08/04/24. Crystal, please print my most recent OV note and fax it to her boiler tube reamer, Dr. Parish Valdez DO at [facility]. Thank you. Faxed to [phone] Zymfentra 120mg/ml PA was sent to plan via [facility] Schneider number: [id number] documented in this encounter [facility] 04-19-2024 Telephone encounter Note Biologic team, [...] OV note and fax it to her boiler tube reamer, Dr. Parish Valdez, at [facility]. Thank you. [facility] 04-19-2024 Telephone encounter Note Faxed to [phone] [facility] 04-19-2024 Telephone encounter Note Zymfentra 120mg/ml PA was sent to plan via [facility] Schneider number: [id number] [facility] 04-19-2024 History of Present illness Narrative Infusion start time: 11:10 am Patient here for her Avsola infusion. Patient denies any recent infections or on antibiotics, open wounds, recent/future surgery, vaccinations or insurance changes. 10:50 am IV started with 22g needle to left AC by JAD Arroyo x1 attempt. Patient tolerated well. Avsola x 4 vials Lot# [id number] Exp- 09/10/2027 Time out performed prior to medication administration. Name, , medication(s) verified 1310 patient infusion complete. IV flushed with normal saline. 1313 IV discontinued, catheter intact, vitals WNL. Patient tolerated infusion well documented in this encounter [facility] 04-19-2024 History of Present illness Narrative [facility] Follow Up Visit CHIEF [...] obstruction (CMS-HCC) 10/17/2017 Chronic diarrhea Colon stricture ([facility]) 04/02/2018 Crohn's colitis ([facility]) Crohn's disease ([facility]) Crohn's disease of both small and large intestine with intestinal obstruction ([facility]) 03/03/2018 Current chronic use of systemic steroids 03/03/2018 Depression Diarrhea 10/17/2017 Added automatically from request for surgery [id number] Difficulty sleeping 01/13/2019 Gall stones History of [...] 10/21/2017 Performed by Sharda Montiel MD at [facility] COLONOSCOPY w/ Bx's & polypectomy N/A 10/08/2021 Performed by Sharda Montiel MD at [facility] ENDOSCOPY EGD N/A 04/02/2018 Performed by Darshana Rae MD at [facility] LAPAROSCOPIC ILEOCECECTOMY, TAKE DOWN OF ILEODUDENAL FISTULA, DRAINAGE OF RETROPERITONEAL ABSCESS, OMENTAL PEDICLE FLAP N/A 04/02/2018 Performed by Jonathan Bautista MD at [facility] SOCIAL HISTORY: Social History Tobacco Use [...] VITAMIN B12: Lab Results Component Value Date [id number] 239 01/26/2024 FOLATE: Lab Results Component Value [...] a hysterectomy has been advised by her package dyeing machine operator, but that she was not ready to proceed. 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 [address] units q.week x8 and then back to [...] findings of the ongoing PIANO study, The [place] Consensus Statements for the Management of Inflammatory Bowel Disease in , and the clinical care pathway released by the AGA. - AGA clinical practice update on -related gastrointestinal and liver disease: expert review (Gastroenterology. 2023;167(5):8140-9414). - Johnathan Farr, Rey C, Ama N, et al. Inflammatory bowel disease in clinical care pathway: a report from the syrian gastroenterological association ibd parenthood project working group. Gastroenterology. 2019;156(5):9628-9761. - Johnathan Farr, Yady BROWN, Lobito CD. [...] and strongly recommended annual f/u with a police radio dispatcher and regular use of skin protection -- [...] procedures Referring and communicating with other health primary care provider (not separately reported) Documenting clinical information in [...] for your understanding. Camila Montiel MD, MPH [facility] [place] [address] PH: [phone] Juan Luis was seen today for follow-up. Diagnoses and all orders for this visit: Thrombocytopenia ([facility]) - CBC auto differential; Future Crohn's disease with complication, unspecified gastrointestinal tract location ([facility]) - Vitamin D 25 hydroxy; Future - Vitamin B12; Future documented in this encounter [facility] 04-19-2024 Instructions Sharda Montiel MD - 04/19/2024 10:00 AM EDT Labs - from today, 02/02/25, and 01/27/25 I recommend hepatitis A vaccines with your PCP, the health department, or any pharmacy; this is typically a series of 2 injections 3. forest fire specialist supervisor high dose vitamin D from the pharmacy Preventative Health Maintenance for Crohn's and ulcerative colitis -- Skin cancer prevention: I recommend annual follow up with a police radio dispatcher and regular use of skin protection given the increased risk of skin cancer, especially in patients on immunomodulator (Imuran / azathioprine / 6MP) or biologic medications (Remicade, Humira, Enyvio) -- Cervical cancer prevention: I recommend annual follow up with your boiler tube reamer doctor with annual pap smears -- Tobacco [...] would be interested in meeting with a hospice chaplain please let me or your family doctor [...] the role of diet in IBD: [email or web address].[email or web address] rg/client_ed.cfm?nmm_client_ed_id =[email or web address] documented in this encounter [facility] 04-14-2024 History of Present illness Narrative Reason [...] nursing note reviewed. Exam conducted with a marketing and promotions manager present. Vitals: Estimated body mass index is 30.42 kg/m as calculated from the following: Height as of 09/14/24: 5' 5 . Weight as of this [...] Parish Valdez DO documented in this encounter [facility] 03-17-2024 History of Present illness Narrative [...] obtained without difficulty and patient was given [facility] order to have obtained. Orders Placed This Encounter Procedures US OB 14+ weeks anatomy scan CHLAMYDIA TRACHOMATIS (GENITO/STI) Neisseria gonorrhea DNA probe, direct Alpha fetoprotein, maternal Follow Up: Patient is to return to our office in 4 weeks for routine OB appointment Documented by SIMI Frazier on behalf of: SIMI Frazier documented in this encounter [facility] 03-08-2024 History of Present illness Narrative Infusion start time: 1040 Patient here for Avsola infusion. Patient denies any recent infections or on antibiotics, open wounds, recent/future surgery, vaccinations or insurance changes. IV started with 22g needle to left forearm by Yaquelin Barba RN x1 attempt. Patient tolerated well. Avsola Lot# [id number] 2vials Exp- 09/10/2027 Lot#[id number] 2 vials Exp08/10/2027 Time out performed prior to medication administration. Name, , medication(s) verified 10:40 am Time out performed with Yaquelin STREET. Avsola to be mixed and administered to patient per current treatment plan orders 1240 patient infusion complete. IV flushed with 10 ml normal saline. IV discontinued, catheter intact, vitals WNL. Patient tolerated infusion well documented in this encounter [facility] 02-18-2024 History of Present illness Narrative [...] nursing note reviewed. Exam conducted with a marketing and promotions manager present. Vitals: Estimated body mass index is [...] or undercooked meat, and stay away from [facility]. Patient has been consulted regarding any further [...] Parish Valdez DO documented in this encounter [facility] 01-23-2024 History of Present illness [...] or undercooked meat, and stay away from [facility]. Patient has also been advised to not [...] Veronica Klein LPN documented in this encounter [facility] 12-17-[address] Montiel, [...] send a letter to the family doctor/PCP, Loan Reviewer, and housing inspectors advising against the use of live vaccines for the 1st 6 months of the baby's life and to monitor the baby closely for any signs of infection. Please send her the following as well: [email or web address].crohnscolitisfoundati on.org/blog/tfyvh-wsgox-vydizp-ho ee-pov-tbqtfpu-hu-dtoriqqvtoq-bnf -wklwaqc-dph-oxab I recommend an OV w me in 02/2024 or 03/2024 Please disregard notes below. Summary These recommendations are in accordance with the findings of the ongoing PIANO study, The [place] Consensus Statements for the Management of Inflammatory [...] association ibd parenthood project working group. Gastroenterology. 2019;156(5):3007-8409. Spoke with patient regarding recommendations, sent via [employer]. Will call patient back when March schedule is out, she needs Mondays. documented in this encounter [facility] 12-17-[address] Montiel, Patient called stating she took a urine test this past Friday and it was positive. She receives Inflectra 400 mg every 6 weeks for her Crohn's. She also takes Imuran 150 mg po daily. Ilesha is inquiring if she can continue taking her Imuran and Inflectra infusions? Please advise, thank you [facility] 12-17-2023 Telephone encounter Note Please let [...] send a letter to the family doctor/PCP, Loan Reviewer, and housing inspectors advising against the use of live vaccines for the 1st 6 months of the baby's life and to monitor the baby closely for any signs of infection. Please send her the following as well: [email or web address].crohnscolitisfoundati on.org/blog/ucpnj-ziwdf-asfvuz-ho gk-bvd-qdyieig-uq-qzzgzvhzhhf-law -ewlxipr-fgz-ycoe I recommend an OV w me in 02/2024 or 03/2024 Please disregard notes below. Summary These recommendations are in accordance with the findings of the ongoing PIANO study, The [place] Consensus Statements for the Management of Inflammatory [...] association ibd parenthood project working group. Gastroenterology. 2019;156(5):3878-9022. [facility] 12-17-2023 Telephone encounter Note Spoke with patient regarding recommendations, sent via [employer]. Will call patient back when March schedule is out, she needs Mondays. [facility] 12-12-2023 History of Present illness Narrative Infusion start time: 10:50 am Patient here for Inflectra infusion. Patient denies any recent infections or on antibiotics, open wounds, recent/future surgery, vaccinations or insurance changes. 10:30 am IV started with 22g needle to right hand by JAD Arroyo x1 attempt. Patient tolerated well. Inflectra x 4 vials Lot# [id number] Exp- 04/09/2028 Time out performed prior to medication administration. Name, , medication(s) verified 11:50 am patient infusion complete. IV flushed with 10 ml normal saline. IV discontinued, catheter intact, vitals WNL. Patient tolerated infusion well documented in this encounter [facility] 12-01-2023 History of Present illness Narrative Images from the original note were not included. [facility] [id number] 12/01/2023 Chief Complaint Patient presents with [...] large intestine with intestinal obstruction ([facility]) Other Visit Diagnoses Iron deficiency - Primary [...] procedures Referring and communicating with other health primary care provider (not separately reported) Documenting clinical information in the electronic or other health record Independently interpreting results (not separately reported) and communicating results to the patient/family/caregiver Care coordination (not separately reported) ---- Please note that portions of this note may have been generated using voice recognition [employer] dictation software. Although every effort was made to ensure the accuracy of any automated transcriptions, some errors may have occurred. TERA Leyva 12/01/23 1502 [facility] Instructions TERA Leyva - 12/01/2023 2:30 PM EDT Pending labs If iron is low, will order Injectafer IV If iron is low, will repeat labs in 3 months CBC-d iron panel ferritin If iron is normal, just follow up yearly as below Follow up yearly with labs same as above [facility] History of Present illness Narrative IV Infusion start time: 944. Patient here for Inflectra infusion. Patient denies any recent infections or on antibiotics, open wounds, recent/future surgery, vaccinations or insurance changes. IV started with 22g needle to left hand by JAD Arroyo x1 attempt. Patient tolerated well. Inflectra x 4 vials Lot# [id number] Exp- [id number] Time out performed prior to medication administration. Name, , medication(s) verified 11:13 am patient infusion complete. IV discontinued, catheter intact, vitals WNL. Patient tolerated infusion well documented [facility] this [facility] 10-31-2023 History of Present illness Narrative [facility] Follow Up Visit CHIEF COMPLAINT: [...] 10/17/2017 Added automatically from request for surgery [id number] Difficulty sleeping 01/13/2019 Gall stones History of [...] 10/21/2017 Performed by Sharda Montiel MD at [facility] COLONOSCOPY w/ Bx's & polypectomy N/A 10/08/2021 Performed by Sharda Montiel MD at [facility] ENDOSCOPY EGD N/A 04/02/2018 Performed by Darshana Rae MD at [facility] LAPAROSCOPIC ILEOCECECTOMY, TAKE DOWN OF ILEODUDENAL FISTULA, DRAINAGE OF RETROPERITONEAL ABSCESS, OMENTAL PEDICLE FLAP N/A 04/02/2018 Performed by Jonathan Bautista MD at [facility] SOCIAL HISTORY: Social History Tobacco Use Smoking [...] VITAMIN B12: Lab Results Component Value Date [id number] 1,378 (H) 08/02/2021 FOLATE: Lab Results Component [...] a hysterectomy has been advised by her package dyeing machine operator, but that she was not ready to proceed. 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 [place] [address] units q.week x8 and then back to [...] h/o fibrostenotic disease. Since her surgery in 2019, she has chronic R-sided intermittent abd pain, [...] and strongly recommended annual f/u with a police radio dispatcher and regular use of skin protection -- [...] procedures Referring and communicating with other health primary care provider (not separately reported) Documenting clinical information in [...] for your understanding. Camila Montiel MD, MPH [facility] [place] [address] PH: [phone] Juan Luis was seen today for follow-up. [...] in the morning. documented [facility] Instructions Sharda Montiel MD - 10/31/2023 [...] I recommend annual follow up with a police radio dispatcher and regular use of skin protection given the increased risk of skin cancer, especially in patients on immunomodulator (Imuran / azathioprine / 6MP) or biologic medications (Remicade, Humira, Enyvio) -- Cervical cancer prevention: I recommend annual follow up with your boiler tube reamer doctor with annual pap smears -- Tobacco [...] would be interested in meeting with a hospice chaplain please let me or your family doctor [...] the role of diet in IBD: [email or web address].nutritioncaremanual.o rg/client_ed.cfm?[facility]_client_ed_id =[email or web address] documented in this encounter [facility] 09-17-2023 History of Present illness Narrative Subjective [...] regarding her care. She is currently at [facility]. She is in a vegetative state. Juan [...] of major depressive disorder without prior episode ([facility]) - citalopram (CeleXA) 20 mg tablet; Take 1.5 tablets (30 mg total) by mouth in the morning. Crohn's disease of both small and large intestine with intestinal obstruction ([facility]) TERA Church 09/17/23 1443 documented in this encounter [facility] 09-15-2023 Miscellaneous Notes Refill infusion orders received; approved for now. Must make 10/31/23 OV or can no longer receive infusions here until she is seen. Tried to call patient, busy signal. Sent [employer] message. Patient called. Updated. She verbalized understanding Thank You documented in this encounter [facility] 09-15-2023 Telephone encounter Note Refill infusion orders received; approved for now. Must make 10/31/23 OV or can no longer receive infusions here until she is seen. [facility] 09-15-2023 Telephone encounter Note Tried to call patient, busy signal. Sent [employer] message. [facility] 09-15-2023 Telephone encounter Note Patient called. Updated. She verbalized understanding Thank You [facility] 09-15-2023 History of Present illness Narrative IV Infusion start time: 10:30 am Patient here for Inflectra infusion. Patient denies any recent infections or on antibiotics, open wounds, recent/future surgery, vaccinations or insurance changes. IV started with 22g needle to right AC by JAD Arroyo x1 attempt. Patient tolerated well. Inflectra x 4 vials Lot# [id number] Exp- [id number] Time out performed prior to medication administration. Name, , medication(s) verified 12:10 pm patient infusion complete. IV discontinued, catheter intact, vitals WNL. Patient tolerated infusion well documented in this encounter [facility] 09-03-2023 Miscellaneous Notes Patient presented to front desk admin window and paid for FMLA today. FMLA faxed. documented in this encounter [facility] 09-03-2023 Telephone encounter Note Patient presented to front desk admin window and paid for FMLA today. FMLA faxed. [facility] 09-03-2023 History of Present illness Narrative Video Visit via Real-time Synchronous Audiovisual Provider Location: [facility] [address] [place] [id number] Patient Location: Patient's home Video Visit Consent [...] that there are some limitations compared to bthw-io-ybvj evaluations. The patient consented to the presence [...] Church 09/03/23 1308 documented in this encounter [facility] 08-20-2023 History of Present illness Narrative [...] work note, and instructed to bring in [place] paperwork to be completed. Will start Celexa [...] Church 08/20/23 1530 documented in this encounter [facility] 08-04-2023 History of Present illness Narrative IV Infusion start time: 1318. Patient here for Inflectra infusion. Patient denies any recent infections or on antibiotics, open wounds, recent/future surgery, vaccinations or insurance changes. IV started with 22g needle to left AC by JAD Arroyo x1 attempt. Patient tolerated well. Inflectra x 4 vials Lot# [id number] Exp- [id number] Time out performed prior to medication administration. [...] of info given. documented in this encounter [facility] 06-18-2023 Miscellaneous Notes Patient has missed the following appointments: 06/17/23 06/10/23 04/14/23 06/17/22 11/10/20 See other note for follow up documented in this encounter [facility] 06-18-2023 Telephone encounter Note Patient has missed the following appointments: 06/17/23 06/10/23 04/14/23 06/17/22 11/10/20 [facility] 06-18-2023 Telephone encounter Note See other note for follow up [facility] 06-10-2023 Miscellaneous Notes SANIYA Cheatham and [...] 06/10/23). No show policy letter sent via [employer] and certified mail. documented in this encounter [facility] 06-10-2023 Telephone encounter Note SANIYA Cheatham and Dr. Montiel, Patient was scheduled today for her Inflectra infusion; was a NO SHOW. She also no showed 04/14/23 Call placed to patient with no answer. Message left for patient to call office back in regards to rescheduling her infusion. [facility] 06-10-2023 Telephone encounter Note Reviewing the chart it appears she has had multiple no shows even prior to this. Please send no-show / late cancellation fee notice and remind her of the no-show policy and that we are tracking this information. If she no-shows again, she may be discharged from the practice per office policy. Thank you. [facility] 06-10-2023 Telephone encounter Note Patient called and rescheduled 06/18/23 [facility] 06-10-2023 Telephone encounter Note Chaparrita, Patient NO SHOWED for her OV yesterday and did not come to her rescheduled infusion today (she NO SHOWED 06/10/23). [facility] 06-10-2023 Telephone encounter Note No show policy letter sent via [employer] and certified mail. [facility] 04-21-2023 Miscellaneous Notes Due for OV [...] at 10:30 am documented in this encounter [facility] 04-21-2023 Telephone encounter Note Due for OV [facility] 04-21-2023 Telephone encounter Note There is nothing available for a recheck OV , can we use a new patient slot? [facility] 04-21-2023 Telephone encounter Note Yes that's ok [facility] 04-21-2023 Telephone encounter Note Left message for patient to call and schedule. [facility] 04-21-2023 Telephone encounter Note Message left for patient to call back. [facility] 04-21-2023 Telephone encounter Note Patient is scheduled with Meaghan on June 16 at 11:15 am. Infusion is scheduled on June 09 at 10:30 am [facility] 04-21-2023 History of Present illness Narrative 1020 am Patient here for Inflectra infusion. Patient denies any recent infections, open wounds, recent/future surgery, or insurance changes . IV started with 22g needle to right hand by raf street x 1 attempt. Patient tolerated well. Inflectra x 4 vials Lot #[id number] Exp date 12/11/2027 Time out performed with Raf Delatorre RN. 400 mg of Inflectra to be mixed and administered to patient per current treatment plan orders. 1305 patient infusion complete. IV discontinued, catheter intact, vitals WNL. Patient tolerated infusion well documented in this encounter [facility] 04-14-2023 Miscellaneous Notes Patient missed the visit. RN called patient and RN rescheduled patient for 04/21/2023. documented in this encounter [facility] 04-14-2023 Telephone encounter Note Patient missed the visit. RN called patient and RN rescheduled patient for 04/21/2023. [facility] 03-31-2023 Miscellaneous Notes RN was told that patient is calling regarding her insurance. The phone call was then transferred back to the infusion room. Patient states she lost her secondary insurance and wanted to know to what the amount she will be responsible for. RN informed patient to call her insurance company to find out that information. documented in this encounter [facility] 03-31-2023 Telephone encounter Note RN was told that patient is calling regarding her insurance. The phone call was then transferred back to the infusion room. Patient states she lost her secondary insurance and wanted to know to what the amount she will be responsible for. RN informed patient to call her insurance company to find out that information. [facility] 02-20-2023 History of Present illness Narrative Images from the original note were not included. [address] [place] [phone] Patient: Juan Luis Storey Date of [...] morning. LYNDSEY ANDERS MD Family Medicine Physician [facility] Family Medicine / [facility] 02/20/23 This note was completed with voice recognition software. The document was reviewed for errors however some may still be present. Please do not hesitate to contact/Epic msg the author to verify any questions/concerns. documented in this encounter [facility] 02-17-2023 History of Present illness Narrative 1145 Patient here for Inflectra infusion. Patient denies any recent infections, open wounds, recent/future surgery, or insurance changes . Site cleansed with alcohol. IV started with 22g needle by Yaquelin Barba RN in right hand. Patient tolerated well. Lot # [id number] Exp 07/11/27 1422 patient infusion complete. IV discontinued at 1422. Patient tolerated infusion well. documented in this encounter [facility] 02-06-2023 History of Present illness Narrative [...] condition. documented in this encounter [facility] Evaluation note Diagnosis Missed menses , unspecified gestational age Encounter for supervision of normal first in first trimester headache in first trimester documented in this encounter [facility]* Diagnosis Therapeutic drug monitoring- Primary Encounter for therapeutic drug monitoring documented in this encounter [facility]* Diagnosis Second trimester state, incidental 15 weeks gestation of H/O oligohydramnios in prior , currently documented in this encounter [facility] Healthcare[facility] note* Diagnosis Crohn's disease of both small and large intestine with intestinal obstruction (CMS-HCC)- Primary documented in this encounter [facility]* Diagnosis Second trimester state, incidental 19 weeks gestation of Vaginal discharge Leukorrhea, not specified as infective STD exposure Screening, , for anatomic survey Encounter for anatomic survey documented in this encounter [facility] HealthcareEvaluation note* Diagnosis 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 deficiency anemia, unspecified Iron malabsorption Other specified intestinal malabsorption documented in this encounter [facility]* Diagnosis Crohn's disease of both small and large intestine with intestinal obstruction (CMS-HCC)- Primary documented in this encounter [facility]* Diagnosis Crohn's disease of both small and large intestine with intestinal obstruction (CMS-HCC)- Primary [facility] Diagnosis Reactive airway disease with acute exacerbation, unspecified asthma severity, unspecified whether persistent- Primary Shortness of breath COVID-19 Sinusitis, unspecified chronicity, unspecified location documented in this encounter [facility]* Diagnosis Crohn's disease of both small and large intestine with intestinal obstruction (CMS-HCC)- Primary documented in this encounter [facility]* Diagnosis Anxiety- Primary Anxiety state, unspecified documented in this encounter [facility]* Diagnosis Crohn's disease of both small and large intestine with intestinal obstruction (CMS-HCC)- Primary documented in this encounter [facility]* Diagnosis Reactive depression- Primary documented in this encounter [facility]* Diagnosis Crohn's disease of both small and large intestine with intestinal obstruction (CMS-HCC)- Primary documented in this encounter [facility]* Diagnosis Current moderate episode of major depressive disorder without prior episode (CMS-HCC)- Primary Crohn's disease of both small and large intestine with intestinal obstruction (CMS-HCC) [facility] Diagnosis Therapeutic drug monitoring- Primary Encounter for therapeutic drug monitoring Crohn's disease of both small and large intestine with other complication (CMS-HCC) documented in this encounter [facility]* Diagnosis Crohn's disease of both small and large intestine with intestinal obstruction (CMS-HCC)- Primary documented in this encounter [facility]* Diagnosis Iron deficiency- Primary [...] unspecified documented in this encounter [facility]* Diagnosis Crohn's disease of both small and large intestine with intestinal obstruction (CMS-HCC)- Primary documented in this encounter [facility]* Diagnosis 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 Other specified intestinal malabsorption Iron deficiency anemia, unspecified documented in this encounter [facility]* Diagnosis Diabetes mellitus screening Screening for diabetes mellitus Second trimester state, incidental 23 weeks gestation of documented in this encounter [facility]* Diagnosis Thrombocytopenia (CMS-HCC)- Primary Unspecified thrombocytopenia Crohn's disease with complication, unspecified gastrointestinal tract location (CMS-HCC) documented in this encounter [facility]* Diagnosis Crohn's disease of colon with other complication (CMS-HCC)- Primary documented in this encounter [facility]* Diagnosis Ulcerative colitis with other complication, unspecified location (CMS-HCC)- Primary [facility]* Diagnosis Second trimester state, incidental 23 weeks gestation of Crohn's disease with complication, unspecified gastrointestinal tract location (CMS/HCC) documented in this encounter [facility]ructionsNot on filedocumented in this [facility]ructionsNot on filedocumented in this encounterProMedica Health SystemInstructionsNot on filedocumented in this encounter[facility] SystemInstructionsNot on filedocumented in this encounterProSum[facility] InstructionsNot on filedocumented in this encounterProSum[facility] InstructionsNot on filedocumented in this encounterProSum[facility] InstructionsNot on filedocumented in this encounterProMedica Health System InstructionsNot on filedocumented in this encounterProSumma [facility] Instructions* Attachments The following attachments cannot be sent through Care Everywhere. * Anxiety Discharge Instructions, Adult (Lao) documented in this [facility] SystemInstructionsNot on file documented in this encounterProSum[facility] SystemInstructionsNot on file documented in this encounterPro[facility] SystemInstructionsNot on file documented in this encounterProSum[facility] SystemInstructions* Attachments The following attachments cannot be sent through Care Everywhere. * Depression (Lao) documented in this encounterProSum[facility] SystemInstructionsNot on file documented in this encounterPro[facility] SystemInstructionsNot on file documented in this [facility] Summary Purpose Family History No Family History Records FoundNo Family History Records FoundNo Family History Records FoundNo Family History Records FoundNo Family History Records FoundNo Family History Records Found Advance Directives Date Activated Date Inactivated Comments 07/03/2019 3:39 [...] section and content) DATE CREATED AUTHOR 08/05/2017 [facility] DATE CREATED AUTHOR AUTHOR'S ORGANIZ ATION 06/26/2022 [facility] DATE CREATED AUTHOR AUTHOR'S ORGANIZ ATION 09/19/2023 [facility] DATE CREATED AUTHOR AUTHOR'S ORGANIZ ATION 02/03/2024 [facility] DATE CREATED AUTHOR AUTHOR'S ORGANIZ ATION 04/25/2024 [facility] DATE CREATED AUTHOR AUTHOR'S ORGANIZ ATION 04/27/2024 [facility] EPIC Reason for Visit [...] BIOSIMILAR, (AVSOLA), 10 MG INFUSION Hilary Aviles, DISPLAY MECHANIC-DISTRICT OR DISTRICT OFFICE DIRECTOR [address] [facility] [address], [place] [address] Phone: tel: fax: [facility] [address] [phone] Phone: tel: fax: Referral ID Status Reason Start Date Expiration Date V isits Requested Visits Authorized [id number] Authorized 01/20/2024 01/18/2025 9 9 Reason Comments Outpatient Infusion Injectafer Specialty Diagnoses / Procedures Referred By Carroll juan Referred To Contact Diagnoses Iron deficiency anemia due to chronic blood loss Iron deficiency anemia, unspecified Iron malabsorption Procedures IA INJ FERRIC CARBOXYMALTOS 1MG Mj Pizarro MD [address] [facility] [address] [place] [address] [address] Med Onc [address] [place] [phone] Referral ID Status Reason Start Date Expiration Date V isits Requested Visits Authorized [id number] Authorized 01/24/2023 07/23/2023 2 2 Reason Comments Outpatient Infusion Inflectra Specialty Diagnoses / Procedures Referred By Contac t Referred To Contact Gastroenterology Diagnoses Crohn's disease of both small and large intestine with intestinal obstruction Inflectra 5mg/kg every 6 weeks, Auth'd for 9 visits 07.26.22-07.26.23, SA/Crohns Procedures IA INFLIXIMAB INJECTION INFUSION Hilary Aviles DISPLAY MECHANIC-DISTRICT OR DISTRICT OFFICE DIRECTOR [address] [facility] [address], [place] [address] [phone] Referral ID Status Reason Start Date Expiration Date V isits Requested Visits Authorized [id number] Pending Review 07/26/2022 07/26/2023 9 9 Reason Comments Asthma Reason Comments Outpatient Infusion inflectra Specialty Diagnoses / Procedures Referred By Contac t Referred To Contact Gastroenterology Diagnoses Crohn's disease of both small and large intestine with intestinal obstruction Procedures IA INFLIXIMAB INJECTION Referral ID Status Reason Start Date Expiration Date V isits Requested Visits Authorized [id number] Authorized 04/01/2023 04/01/2024 9 9 Reason Comments Mental Health Problem Reason Comments FMLA Reason Comments Anxiety Depression Reason Comments Follow-up Patient is here for a follow up and denies any issues. Reason Comments Follow-up Specialty Diagnoses / Procedures Referred By Contac t Referred To Contact Gastroenterology Diagnoses Crohn's disease of both small and large intestine with intestinal obstruction Procedures IA INFLIXIMAB INJECTION Reason Comments Outpatient Infusion Specialty Diagnoses / Procedures Referred By Contac t Referred To Contact Gastroenterology Diagnoses Crohn's disease of both small and large intestine with intestinal obstruction [place] 5mg/kg (400mg) every 6 weeks/ Auth'd 01.20.24 - 01.18.25/ visits/ [id number] Dr. Montiel NO ACCELERATED INFUSION Procedures INJECTION, INFLIXIMAB-AXXQ, BIOSIMILAR, (AVSOLA), 10 MG INFUSION Hilary Aviles, DISPLAY MECHANIC-DISTRICT OR DISTRICT OFFICE DIRECTOR [address], [place] [address] Phone: tel: fax: [facility] [address] [place] [phone] Phone: tel: fax: Care Teams (unrecognized sec tion and content) Configuration Analyst Relationship Specialty Start Date End Date Hilary Aviles MD [address] [place] [address] Referring Physician Nurse Practitioner 10/08/22 Configuration Analyst Relationship Specialty Start Date End Date Hilary Aviles APRN-DISTRICT OR DISTRICT OFFICE DIRECTOR [address], [place] [address] PCP - General Family Medicine 01/03/24 Configuration Analyst Relationship Specialty Start Date End Date Hilary Aviles MD [address] [place] [address] Referring Physician Nurse Practitioner 10/08/22 Configuration Analyst Relationship Specialty Start Date End Date Hilary Aviles MD [address] [place] [address] Referring Physician Nurse Practitioner 10/08/22 Configuration Analyst Relationship Specialty Start Date End Date Hilary Aviles MD [address] [place] [address] Referring Physician Nurse Practitioner 10/08/22 Configuration Analyst Relationship Specialty Start Date End Date Hilary Aviles APRN-DISTRICT OR DISTRICT OFFICE DIRECTOR [address], [place] [address] PCP - General Family Medicine 01/03/24 Configuration Analyst Relationship Specialty Start Date End Date Hilary Aviles MD [address] [place] [address] [address] [address] Referring Physician Nurse Practitioner 10/08/22 Configuration Analyst Relationship Specialty Start Date End Date Hilary Aviles MD [address] [place] [address] [place] [address] Referring Physician Nurse Practitioner 10/08/22 Configuration Analyst Relationship Specialty Start Date End Date Hilary Aviles MD [address] [place] [address] [place] [address] Referring Physician Nurse Practitioner 10/08/22 Configuration Analyst Relationship Specialty Start Date End Date Hilary Aviles DISPLAY MECHANIC-DISTRICT OR DISTRICT OFFICE DIRECTOR [address], [place] [address] PCP - General Family Medicine 12/26/22 Configuration Analyst Relationship Specialty Start Date End Date Hilary Aviles APRN-DISTRICT OR DISTRICT OFFICE DIRECTOR [address], [place] [address] PCP - General Family Medicine 12/26/22 Configuration Analyst Relationship Specialty Start Date End Date Hilary Aviles DISPLAY MECHANIC-DISTRICT OR DISTRICT OFFICE DIRECTOR [address], [place] [address] PCP - General Family Medicine 12/26/22 Configuration Analyst Relationship Specialty Start Date End Date Hilary Aviles DISPLAY MECHANIC-DISTRICT OR DISTRICT OFFICE DIRECTOR [address], [place] [address] PCP - General Family Medicine 12/26/22 Configuration Analyst Relationship Specialty Start Date End Date Hilary [facility]iles [facility] [address], [place] [address] PCP - General Family Medicine 12/26/22 Configuration Analyst Relationship Specialty Start Date End Date Hilary [facility]iles [facility] [address], [place] [address] PCP - General Family Medicine 12/26/22 Configuration Analyst Relationship Specialty Start Date End Date Hilary [facility]iles [facility] [address], [place] [address] PCP - General Family Medicine 12/26/22 Configuration Analyst Relationship Specialty Start Date End Date Hilary [facility]iles [facility] [address], [place] [address] PCP - General Family Medicine 12/26/22 Configuration Analyst Relationship Specialty Start Date End Date Hilary [facility]iles [facility] [address], [place] [address] PCP - General Family Medicine 12/26/22 Configuration Analyst Relationship Specialty Start Date End Date Hilary [facility]iles [facility] [address], [place] [address] PCP - General Family Medicine 12/26/22 Configuration Analyst Relationship Specialty Start Date End Date Hilary [facility]iles [facility] [address], [place] [address] PCP - General Family Medicine 12/26/22 Configuration Analyst Relationship Specialty Start Date End Date Hilary Aviles [facility] [address], [place] [address] PCP - General Family Medicine 12/26/22 Configuration Analyst Relationship Specialty Start Date End Date Hilary [facility]iles [facility] [address], [place] [address] PCP - General Family Medicine 12/26/22 Configuration Analyst Relationship Specialty Start Date End Date Hilary [facility]iles [facility] [address], [place] [address] PCP - General Family Medicine 12/26/22 Configuration Analyst Relationship Specialty Start Date End Date Hliary Aviles [facility] [address], [place] [address] PCP - General Family Medicine 01/03/24 Configuration Analyst Relationship Specialty Start Date End Date Hilary [facility]iles [facility] [address], [place] [address] PCP - General Family Medicine 01/03/24 Configuration Analyst Relationship Specialty Start Date End Date Hilary Aviles MD [address] [place] [address], [place] [address] Referring Physician Nurse Practitioner 10/08/22 Configuration Analyst Relationship Specialty Start Date End Date Hilary [facility]iles [facility] [address], [place] [facility] [address] PCP - General Family Medicine 01/03/24 Configuration Analyst Relationship Specialty Start Date End Date Hilary Aviles APRNDISTRICT OR DISTRICT OFFICE DIRECTOR [address], [place] [address] PCP - General Family Medicine 01/03/24 Configuration Analyst Relationship Specialty Start Date End Date Hilary [facility]iles [facility] [address], [place] [address] PCP - General Family Medicine 01/03/24 Configuration Analyst Relationship Specialty Start Date End Date Hilary Aviles MD [address] [place] [address], [place] [address] Referring Physician Nurse Practitioner 10/08/22 FOR RECORDS [...] BE BASED ON THE PRIMARY CLINICAL RECORDS. [employer] [facility]. provides no warranty or guarantee of the accuracy or completeness of information in this document.
[2024-05-04 20:24] VITALS: BP 140/89; PULSE 110
[2024-05-04 20:37] LABS: Bilirubin Urine NEGATIVE (NEGATIVE); Blood Urine TRACE-I (NEGATIVE); Clarity Urine CLEAR (CLEAR); Color Urine YELLOW (YELLOW); Glucose Urine UA NEGATIVE (NEGATIVE); Ketones Urine NEGATIVE (NEGATIVE); Leukocyte Esterase Urine NEGATIVE (NEGATIVE); Nitrite Urine NEGATIVE (NEGATIVE); Protein Urine NEGATIVE (NEG/TRACE); Specific Gravity Urine 1.015 (1.005-1.025)
[2024-05-04 20:38] VITALS: BP 140/91; PULSE 112
[2024-05-04 20:45] LABS: Urine Microscopic Indicated YES
[2024-05-04 20:47] LABS: Amorphous Sediment Urine FEW; Bacteria Urine LARGE #/HPF (NONE SEEN); Cast Seen? NONE SEEN #/LPF (NONE SEEN); Crystals Seen? Seen #/HPF (None Seen); Mucus Urine NONE SEEN (NONE SEEN); RBC Urine 0-2 #/HPF (0-2); Squamous Epithelial Cell Urine FEW #/LPF (NONE/RARE); Urine Culture Indicated YES-LC
[2024-05-04 20:48] VITALS: BP 136/89; PULSE 103
[2024-05-04 20:58] VITALS: BP 136/95
[2024-05-04 21:08] VITALS: BP 130/87; PULSE 110; TEMP 37.4
== END 2024-05-04 21:16 | disposition home or self-care (01) ==
PROVIDERS: Admitting Provider Obstetrics & Gynecology; PCP Nurse Practitioner; Visit Provider Obstetrics & Gynecology
DX: O99.891 Other specified diseases and conditions complicating pregnancy (principal); R06.02 Shortness of breath; Z3A.25 25 weeks gestation of pregnancy
CPT/HCPCS: 59025; 81001; 87086; G0378; G0379

== ENCOUNTER 2024-05-04 21:21 | Emergency (ER) | payer OTHER, MEDICAID, SELFPAY ==
[2024-05-04] VITALS (14 sets, daily range): BP systolic 119–134; BP diastolic 81–92; PULSE 96–106; TEMP 37.2; O2SAT 97–100; BMI 31.1
--- OUTSIDE RECORDS SUMMARY | 2024-05-04 21:40 | XMS_ITS | CCD ---
Author Organization [facility] Care Team Providers Care Travel Nurse Name Role Phone ADAMOWICZ, SAMARA J Unavailable [...] Care Unavailable SESAR PRICE Attending Unavailable Traci GRANTS OFFICER-ART GILDER, Hilary A Primary Care Provi lazarus Traci GRANTS OFFICER-ART GILDER, Hilary A Primary Care Provi lazarus TRACI, [...] every six hours for pain HYDROcodone-acetaminop hen ([place]) 5-325 MG tablet Indications: Abdominal pain, unspecified abdominal location , Crohn's disease with complication, unspecified gastrointestinal tract location (CMS/HCC) Take 1 tablet by mouth every 6 (six) hours if needed for moderate pain or severe pain for up to 15 doses 15 tablet 04/20/2024 Active [id number] 200 actuat albuterol 0.09 mg/actuat metered dose [...] Active End: 08-20-2023 cyanocobalamin/folic acid (v itamin T93-lgvjn acid) 1,000-400 mcg lozenge B12 08/20/2023 Discontinued [...] mg injection (20 sources) Tumor Necrosis Factor Stephanei inFLIXimab (REMICADE) 10 mg/mL injection Infuse 5 [...] Arredondo on 05-04-2024 Radiology Study observation (narrative) [facility] Urinalysis macro (dipstick) panel (U)on 04-26-2024 Bilirubin, UA Negative Negative - 4(70) +++ mg/dL [facility] Blood, UA Negative Negative - 50 Enrrique/mcL [facility] Clarity, UA Clear [facility] Color, UA Yellow [facility] Glucose, UA Negative Negative - 2000(110) ++++ mg/dL [facility] Interpretation and review of laboratory results Abnormal [facility] Ketones, UA Positive Negative - 160(16) ++++ mg/dL [facility] Leukocytes, UA Negative Negative - 500+++ Cam/mcL [facility] Nitrite, UA Negative Negative - Positive [facility] pH, UA 6.5 5 - 9 [facility] Protein, UA Negative Negative - 2000(20) ++++ mg/dL [facility] Spec Grav, UA 1.03 1 - 1.03 [facility] Urobilinogen, UA 1.0 0.2 - 12 mg/dL [facility] US OB LIMITED 1+ FETUSESon 0 [...] II, MD, PHD at 22-Apr-2024 09:07:11 AM [facility] Normal Not Available Comment on above: Order Comment: US OB INCOMPLETE ANATOMY Estimated Date of Delivery: 08/11/24 Gestational Age as of 03/25/2024: 20w1d CBC AND AUTO DIFFon 04-20-19 ABSOLUTE BASOPHIL 0.0 X10E9/L Normal 0.0-0.2 [facility] Comment on above: Performed By: #### 2 276-4, CBCA, FEPR #### [facility] ([id number]) [address], [address] [place] [address] ABSOLUTE NEUTROPHIL 5.2 X10E9/L Normal 1.5-6.6 [facility] Comment on above: Performed By: #### 2 276-4, CBCA, FEPR #### [facility] ([id number]) [address], [address] [place] [address] Basophils/100 WBC (Bld) 0.4 % Normal [facility] Comment on above: Performed By: #### 2 276-4, CBCA, FEPR #### [facility] ([id number]) [address], [address] [place] [address] Eosinophils (Bld) [#/Vol] 0.0 10*3/uL Normal 0.0-0.4 [facility] Comment on above: Performed By: #### 2 276-4, CBCA, FEPR #### [facility] ([id number]) [address], [address] [place] [address] Eosinophils/100 WBC (Bld) 0.6 % Normal [facility] Comment on above: Performed By: #### 2 276-4, CBCA, FEPR #### [facility] ([id number]) [address] [address] [place] [address] Erythrocyte distribution width (RBC) [Ratio] 14.6 % Normal 11.5-15.0 [facility] Comment on above: Performed By: #### 2 276-4, CBCA, FEPR #### [facility] ([id number]) [address] [address] [place] [address] Hematocrit (Bld) [Volume fraction] 32.4 % Low 35-47 [facility] Comment on above: Performed By: #### 2 276-4, CBCA, FEPR #### [facility] ([id number]) [address] [address] [place] [address] Hemoglobin (Bld) [Mass/Vol] 10.7 g/dL Low 11.7-15.5 [facility] Comment on above: Performed By: #### 2 276-4, CBCA, FEPR #### [facility] ([id number]) [address] [address] Lymphocytes (Bld) [#/Vol] 1.9 10*3/uL Normal 1.0-3.5 [facility] Comment on above: Performed By: #### 2 276-4, CBCA, FEPR #### [facility] ([id number]) [address] [address] Lymphocytes/100 WBC (Bld) 24.8 % Normal [facility] Comment on above: Performed By: #### 2 276-4, CBCA, FEPR #### [facility] ([id number]) [address] [address] [place] [address] MCH (RBC) [Entitic mass] 30.9 pg Normal 27-34 [facility] Comment on above: Performed By: #### 2 276-4, CBCA, FEPR #### [facility] ([id number]) [address], [address] [address] MCHC (RBC) [Mass/Vol] 33.0 g/dL Normal 32-36 [facility] Comment on above: Performed By: #### 2 276-4, CBCA, FEPR #### [facility] ([id number]) [address], [facility] [address] [place] [address] MCV (RBC) [Entitic vol] 94 fL Normal 80-100 [facility] Comment on above: Performed By: #### 2 276-4, CBCA, FEPR #### [facility] ([id number]) [address] [address] [place] [address] Monocytes (Bld) [#/Vol] 0.5 10*3/uL Normal 0-0.9 [facility] Comment on above: Performed By: #### 2 276-4, CBCA, FEPR #### [facility] ([id number]) [address], [address] [address] Monocytes/100 WBC (Bld) 6.5 % Normal [facility] Comment on above: Performed By: #### 2 276-4, CBCA, FEPR #### [facility] ([id number]) [address], [address] [address] Neutrophils/100 WBC (Bld) 67.7 % Normal [facility] Comment on above: Performed By: #### 2 276-4, CBCA, FEPR #### [facility] ([id number]) [address], [facility] [address] [place] [address] Platelet mean volume (Bld) [Entitic vol] 10.8 fL Normal 7-12 [facility] Comment on above: Performed By: #### 2 276-4, CBCA, FEPR #### [facility] ([id number]) [address], [facility] [address] [place] [address] Platelets (Bld) [#/Vol] 162 10*3/uL Normal 150-450 [facility] Comment on above: Performed By: #### 2 276-4, CBCA, FEPR #### [facility] ([id number]) [address], [address] [place] [address] RBC COUNT 3.46 X10E12/L Low 3.80-5.20 [facility] Comment on above: Performed By: #### 2 276-4, CBCA, FEPR #### [facility] ([id number]) [address], [address] [place] [address] WBC (Bld) [#/Vol] 7.7 10*3/uL Normal 4.0-11.0 [facility] Comment on above: Performed By: #### 2 276-4, CBCA, FEPR #### [facility] ([id number]) [address], [address] [place] [address] FERRITINon 04-19-2024 Ferritin [Mass/Vol] 9 ng/mL Low 11-307 [facility] Comment on above: Performed By: #### 2 276-4, CBCA, FEPR #### [facility] ([id number]) [address], [address] [place] [address] IRON PROFILEon 04-19-2024 Iron [Mass/Vol] 78 ug/dL Normal 50-170 [facility] Comment on above: Performed By: #### 2 276-4, CBCA, FEPR #### [facility] ([id number]) [address], [address] [place] [address] IRON BINDING 475 ug/dL High 250-425 [facility] Comment on above: Performed By: #### 2 276-4, CBCA, FEPR #### [facility] ([id number]) [address], [address] [place] [address] IRON SATURATION 16 % SATURATION Normal 15-50 [facility] Comment on above: Performed By: #### 2 276-4, CBCA, FEPR #### [facility] ([id number]) [address], [address] [place] [address] THIOPURINE METABOLITESon 6 METHYLMERCAPTOPRNE <475 Normal < or = 5700 [facility] Comment on above: Result Comment: NOTE Result not quantifiable; below the limit of quantitation. Decreased risk of hepatotoxicity. ADDITIONAL INFORMATION Testing performed by Liquid Chromatography-Tandem Mass Spectrometry (LC-MS/MS) This test was developed and its performance characteristics determined by [facility] in a manner consistent with CLIA requirements. This test has not been cleared or approved by the U.S. Food and Drug Administration. Test Performed by: [place] [address] Press Setup Operator: Celi Feranndez Ph.D.; CLIA# [id number] Performed By: #### 2 276-4, CBCA, FEPR #### [facility] ([id number]) [address], [address] [place] [address] 6 THIOGUANINE 101 pmol/8x10(8)RBC Low 235 - [address] [facility] Comment on above: Result Comment: NOTE Decreased possibility of response; suboptimal dosing or noncompliance. Performed By: #### 2 276-4, CBCA, FEPR #### [facility] ([id number]) [address], [address] [place] [address] VITAMIN B12on 04-19-2024 Cobalamin (Vitamin B12) [Mass/Vol] 143 pg/mL Low 180-914 [facility] Comment on above: Performed By: #### 2 276-4, CBCA, FEPR #### [facility] ([id number]) [address], [address] [place] [address] Vitamin D+Metabolites [Mass/ Vol]on 04-19-2024 VITAMIN D 25 HYD TOT 12.0 ng/mL Low 30-100 [facility] Comment on above: Result Comment: Vitamin D status 25 [place] Vitamin D Deficiency <20 ng/mL Insufficiency 20-29 ng/mL Sufficiency 30-100 ng/mL Toxicity >100 ng/mL NOTE: A pediatric reference range has not been established by the assistant curator of this kit. The [place] [employer] recommends a Vitamin D level of = or >20ng/mL in infants and children. Performed By: #### 2 276-4, CBCA, FEPR #### [facility] ([id number]) [address] [place] [address], [address] [place] [address] No Panel Informationon 03-24 Radiology Study observation (narrative) [facility] US OB ANATOMYon 03-24-2024 [place] [address] Ultrasound Report Signed Patient: JUAN LUIS STOREY MR#: [id number] : 1990 Acct:[id number] Age/Sex: 33 / F ADM Date: 03/24/24 Loc: US Attending Dr: Parish Valdez D.O. Ordering Physician: Parish Valdez D.O. Date of Service: 03/24/24 Procedure(s): US OB anatomy Accession Number(s): [id number] cc: Parish Valdez D.O.; Hilary Aviles NP [address] [address] Patient Name: JUAN LUIS STOREY MRN: [id number] date: 1990 Sex: F Assigned Patient Location: US Current Patient Location: US Accession/Order Number: [id number] Exam Date: 03/24/2024 10:45 Report Date: 03/24/2024 [...] Signed By: 03/24/24 1139 DD/ 1136 TD/TT: Clinical Neuropsychologist: [facility] Radiology, Radiologi MD perla - 03/24/[address] [address] Ultrasound Report Signed Patient: JUAN LUIS STOREY MR#: [id number] : 1990 Acct:[id number] Age/Sex: 33 / F ADM Date: 03/24/24 Loc: US Attending Dr: Parish Valdez D.O. Ordering Physician: Parish Valdez D.O. Date of Service: 03/24/24 Procedure(s): US OB anatomy Accession Number(s): [id number] cc: Parish Valdez D.O.; Hilary Aviles NP [place] [id number] Patient Name: JUAN LUIS STOREY MRN: [facility]:[id number] date: 1990 Sex: F Assigned Patient Location: US Current Patient Location: US Accession/Order Number: [id number] Exam Date: 03/24/2024 10:45 Report Date: 03/24/2024 [...] Signed By: 03/24/24 1139 DD/ 1136 TD/TT: Clinical Neuropsychologist: [employer] US OB ANATOMYOrdered By: Rad iologbruna Radiology on 03-24-2024 [facility] [employer] Work Phone: US OB CERVICAL LENGTHon 03-13 [place] [address] Ultrasound Report Signed Patient: JUAN LUIS STOREY MR#: [id number] : 1990 Acct:[id number] Age/Sex: 33 / F ADM Date: 03/24/24 Loc: US Attending Dr: Parish Valdez D.O. Ordering Physician: Parish Valdez D.O. Date of Service: 03/24/24 Procedure(s): US OB cervical length Accession Number(s): [id number] cc: Parish Valdez D.O.; Hilary Aviles NP [place] [address] Patient Name: JUAN LUIS STOREY MRN: [id number] date: 1990 Sex: F Assigned Patient Location: US Current Patient Location: US Accession/Order Number: [id number] Exam Date: 03/24/2024 10:45 Report Date: 03/24/2024 [...] Signed By: 03/24/24 1138 DD/ 1136 TD/TT: Clinical Neuropsychologist: [facility] Radiology Radiologaditya duncan MD - 03/24/2024 [place] [address] Ultrasound Report Signed Patient: JUAN LUIS STOREY MR#: [id number] : 1990 Acct:[id number] Age/Sex: 33 / F ADM Date: 03/24/24 Loc: US Attending Dr: Parish Valdez D.O. Ordering Physician: Parish Valdez D.O. Date of Service: 03/24/24 Procedure(s): US OB cervical length Accession Number(s): [id number] cc: Parish Valdez D.O.; Hilary Aviles NP The [place] [id number] Patient Name: JUAN LUIS STOREY MRN: [id number] date: 1990 Sex: F Assigned Patient Location: US Current Patient Location: Accession/Order Number: [id number] Exam Date: 03/24/2024 10:45 Report Date: 03/24/2024 [...] Signed By: 03/24/24 1138 DD/ 1136 TD/TT: Clinical Neuropsychologist: [facility] US OB CERVICAL LENGTHOrdered By: Radiologist Radiology on 03-24-2024 [facility] Work Phone: Ultrasound - OfficeOrdered B y: Rachelle Arredondo on 03-24-2024 [facility] Unlisted Lab Teston 03-24-19 [facility] RECURRENT VAGINITIS (HTRX)on 03-18-2024 ATOPOBIUM VAGINAE 0 [...] [facility] US OB CERVICAL LENGTHon 02-12 [place] [address] Ultrasound Report Signed Patient: JUAN LUIS STOREY MR#: [id number] : 1990 Acct:[id number] Age/Sex: 33 / F ADM Date: 03/11/24 Loc: US Attending Dr: Parish Valdez D.O. Ordering Physician: Parish Valdez D.O. Date of Service: 03/11/24 Procedure(s): US OB cervical length Accession Number(s): [id number] cc: Parish Valdez D.O.; Hilary Aviles NP The [address] [address] Patient Name: JUAN LUIS STOREY MRN: [facility]:[id number] date: 1990 Sex: F Assigned Patient Location: US Current Patient Location: US Accession/Order Number: [id number] Exam Date: 03/11/2024 10:15 Report Date: 03/11/2024 [...] Signed By: 03/11/24 1056 DD/ 1053 TD/TT: Clinical Neuropsychologist: [facility] Radiology, Radiologaditya duncan MD - 03/11/2024 [place] [address] Ultrasound Report Signed Patient: JUAN LUIS STOREY MR#: [id number] : 1990 Acct:[id number] Age/Sex: 33 / F ADM Date: 03/11/24 Loc: US Attending Dr: Parish Valdez D.O. Ordering Physician: Parish Valdez D.O. Date of Service: 03/11/24 Procedure(s): US OB cervical length Accession Number(s): [id number] cc: Parish Valdez D.O.; Hilary Aviles NP [address] [id number] Patient Name: JUAN LUIS STOREY MRN: [facility]:[id number] date: 1990 Sex: F Assigned Patient Location: US Current Patient Location: US Accession/Order Number: [id number] Exam Date: 03/11/2024 10:15 Report Date: 03/11/2024 [...] Signed By: 03/11/24 1056 DD/ 1053 TD/TT: Clinical Neuropsychologist: [facility] Radiology Study observation (narrative) [facility] US OB CERVICAL LENGTHOrdered By: Radiologist Radiology on 03-11-2024 [facility] Work Phone: Urinalysis macro (dipstick) panel (U)on 02-18-2024 Bilirubin, UA Negative Negative - 4(70) +++ mg/dL [facility] Blood, UA Positive Negative - 50 Enrrique/mcL [facility] Comment on above: trace Clarity, UA Clear [facility] Color, UA Yellow [facility] Glucose, UA Negative Negative - 1999(110) ++++ mg/dL [facility] Interpretation and review of laboratory results Abnormal [facility] Ketones, UA Positive Negative - 160(16) ++++ mg/dL [facility] Comment on above: trace Leukocytes, UA Trace Negative - 500+++ Cam/mcL [facility] Nitrite, UA Negative Negative - Positive [facility] pH, UA 7 5 - 9 [facility] Protein, UA Positive Negative - 2000(20) ++++ mg/dL [facility] Comment on above: 30 Spec Grav, UA 1.03 1 - 1.03 [facility] Urobilinogen, UA 1.0 0.2 - 12 mg/dL [facility] ALL CBC WITH AUTO DIFFon BASOPHILS ABSOLUTE AUTO 0 [facility] Basophils/100 WBC (Bld) 0.2 % 0.2 - 2.0 % [facility] Eosinophils/100 WBC (Bld) 0.9 % 0.9 - 7.0 % [facility] Erythrocyte distribution width (RBC) [Ratio] 12.5 % 11.0 - 15.0 % [facility] Hematocrit (Bld) [Volume fraction] 35.3 % Low 36.0 - 48.0 % [facility] Hemoglobin (Bld) [Mass/Vol] 11.8 g/dL Low 12.0 - 16.0 g/dL [facility] IMMATURE GRANULOCYTES ABS AUTO 0.03 [facility] Immature granulocytes/100 WBC (Bld) 0.4 % 0.0 - 0.5 % [facility] Interpretation and review of laboratory results Abnormal [facility] LYMPHOCYTES ABSOLUTE AUTO 2.4 [facility] Lymphocytes/100 WBC (Bld) 29.2 % 20.5 - 60.0 % [facility] MCH (RBC) [Entitic mass] 32 pg 26.7 - 34.0 pg [facility] MCHC (RBC) [Mass/Vol] 33.4 g/dL 29.9 - 35.2 g/dL [facility] MCV (RBC) [Entitic vol] 95.7 fL 81.0 - 99.0 fL [facility] MONOCYTES ABSOLUTE AUTO 0.5 [facility] Monocytes/100 WBC (Bld) 6.5 % 1.7 - 12.0 % [facility] NEUTROPHILS ABSOLUTE AUTO 5.1 [facility] Neutrophils/100 WBC (Bld) 62.8 % 43.0 - 75.0 % [facility] Platelet mean volume (Bld) [Entitic vol] 12 fL 9.5 - 13.5 fL [facility] EO # 0.1 [facility] PLT [address] [facility] RBC 3.69 Low [facility] WBC 8.2 [facility] No Panel Informationon 02-13 [facility] Rubella IGG immune statuson 02-14-2024 Rubella immune IgG immune [facility] Syphilis Total(Unknown Syphi lis Status)Ordered By: Rachelle Arredondo on 02-14-2024 Syphilis Non-Reactive [facility] BASIC METABOLIC PANLon 01-25 Anion gap [Moles/Vol] 9 mmol/L Normal 5-15 [facility] Comment on above: Performed By: #### C BC, 2131-10, LIVR, BMP, 84815-2, 1987-06, 72612-4 #### [facility] ([id number]) [address] [place] [address], [address] [place] [address] #### THMET #### [facility] ([id number]) [address] [facility], Calcium [Mass/Vol] 8.6 mg/dL Normal 8.5-10.5 [facility] Comment on above: Performed By: #### C BREANNA, 2131-10, LIVR, BMP, 47637-1, 1987-06, 66115-5 #### [facility] ([id number]) [address] [place] [address], [facility] [address] [place] [address] #### THMET #### [facility] ([id number]) [address] [place] [address], Chloride [Moles/Vol] 104 mmol/L Normal 98-109 [facility] Comment on above: Performed By: #### Elizabeth CARLOS, 2131-10, LIVR, BMP, 05485-7, 1987-06, 11861-7 #### [facility] ([id number]) [address] [place] [address], [address] [place] [address] #### THMET #### [facility] ([id number]) [address] [place] [address], CO2 [Moles/Vol] 21 mmol/L Low 22-32 [facility] Comment on above: Performed By: #### Elizabeth CARLOS, 2131-10, LIVR, BMP, 14250-4, 1987-06, 25606-9 #### [facility] ([id number]) [address] [place] [address] #### THMET #### [facility] ([id number]) [address] [place] [address], Creatinine [Mass/Vol] 0.56 mg/dL Normal 0.40-1.00 [facility] Comment on above: Result Comment: METH OD TRACEABLE TO IDMS STANDARD Performed By: #### C BREANNA, 2131-10, LIVR, BMP, 81109-8, 1987-06, 56677-0 #### [facility] ([id number]) [address] [place] [address] #### THMET #### [facility] ([id number]) [address] [place] [address], eGFR (CKD-EPI) NON-RACE DEPENDENT >90 Normal >59 [facility] Comment on above: Result Comment: Reported eGFR is based on the CKD-EPI 2020 equation that does not use a race coefficient. Performed By: #### C BREANNA, 2131-10, LIVR, BMP, 13731-4, 1987-06, 92211-8 #### [facility] ([id number]) [address] [place] [address] #### THMET #### [facility] ([id number]) [address] [place] [address], Glucose [Mass/Vol] 73 mg/dL Normal 65-99 [facility] Comment on above: Performed By: #### C BREANNA, 2131-10, LIVR, BMP, 73816-6, 1987-06, 42679-0 #### [facility] ([id number]) [address] [place] [address] #### THMET #### [facility] ([id number]) [address] [place] [address], Potassium [Moles/Vol] 3.8 mmol/L Normal 3.5-5.0 [facility] Comment on above: Performed By: #### C BC, 2131-10, LIVR, BMP, 94272-8, 1987-06, 93201-1 #### [facility] ([id number]) [address] [place] [address], [address] [place] [address] #### THMET #### [facility] ([id number]) [address] [facility], Sodium [Moles/Vol] 134 mmol/L Normal 134-146 [facility] Comment on above: Performed By: #### C BC, 2131-10, LIVR, BMP, 11412-7, 1987-06, 94392-5 #### [facility] ([id number]) [address] [place] [address] #### THMET #### [facility] ([id number]) [address] [place] [address], Urea nitrogen [Mass/Vol] 6 mg/dL Normal 5-23 [facility] Comment on above: Performed By: #### C BREANNA, 2131-10, LIVR, BMP, 15349-9, 1987-06, 36116-6 #### [facility] ([id number]) [address] [place] [address], [address] [place] [address] #### THMET #### [facility] ([id number]) [address] [place] [address], COMPLETE BLOOD COUNTon 01-25 Erythrocyte distribution width (RBC) [Ratio] 13.7 % Normal 11.5-15.0 [facility] Comment on above: Performed By: #### C BC, 2131-10, LIVR, BMP, 10017-3, 1987-06, 54960-6 #### [facility] ([id number]) [address] [place] [address], [address] [place] [address] #### THMET #### [facility] ([id number]) [address] [place] [address], Hematocrit (Bld) [Volume fraction] 38.5 % Normal 35-47 [facility] Comment on above: Performed By: #### C BREANNA, 2131-10, LIVR, BMP, , 1987-06, 75980-5 #### [facility] ([id number]) [address], [address] [place] [address] #### THMET #### [facility] ([id number]) [address] [facility], Hemoglobin (Bld) [Mass/Vol] 12.8 g/dL Normal 11.7-15.5 [facility] Comment on above: Performed By: #### C BREANNA, 2131-10, LIVR, BMP, , 1987-06, 35553-3 #### [facility] ([id number]) 0 [facility], [address] [place] [address] #### THMET #### [facility] ([id number]) [address] [facility], MCH (RBC) [Entitic mass] 32.5 pg Normal 27-34 [facility] Comment on above: Performed By: #### C BREANNA, 2131-10, LIVR, BMP, 44694-1, 1987-06, 40990-8 #### [facility] ([id number]) [address], [address] [place] [address] #### THMET #### [facility] ([id number]) [address] [facility], MCHC (RBC) [Mass/Vol] 33.3 g/dL Normal 32-36 [facility] Comment on above: Performed By: #### Elizabeth CARLOS, 2131-10, LIVR, BMP, 40341-2, 1987-06, 16199-6 #### [facility] ([id number]) [address] [facility], [address] [place] [address] #### THMET #### [facility] ([id number]) [address] [facility], MCV (RBC) [Entitic vol] 98 fL Normal 80-100 [facility] Comment on above: Performed By: #### C BREANNA, 2131-10, LIVR, BMP, 84291-8, 1987-06, 07966-7 #### [facility] ([id number]) [address] [place] [address], [facility] [address] [place] [address] #### THMET #### [facility] ([id number]) [address] [facility], Platelet mean volume (Bld) [Entitic vol] 11.2 fL Normal 7-12 [facility] Comment on above: Performed By: #### Elizabeth CARLOS, 2131-10, LIVR, BMP, 24354-0, 1987-06, 03622-1 #### [facility] ([id number]) [address] [place] [address] #### THMET #### [facility] ([id number]) [address] [place] [address], Platelets (Bld) [#/Vol] 108 10*3/uL Low 150-450 [facility] Comment on above: Performed By: #### Elizabeth CARLOS, 2131-10, LIVR, BMP, 02290-2, 1987-06, 39648-6 #### [facility] ([id number]) [address] [place] [address], [place] [address] #### THMET #### [facility] ([id number]) [address] [facility], RBC COUNT 3.95 X10E12/L Normal 3.80-5.20 [facility] Comment on above: Performed By: #### Elizabeth CARLOS, 2131-10, LIVR, BMP, , 1987-06, 26641-1 #### [facility] ([id number]) [address] [place] [address], [address] [place] [address] #### THMET #### [facility] ([id number]) [address] [facility], WBC (Bld) [#/Vol] 7.2 10*3/uL Normal 4.0-11.0 [facility] Comment on above: Performed By: #### C BC, 2131-10, LIVR, BMP, 53337-4, 1987-06, 09244-1 #### [facility] ([id number]) [address] [place] [address], [address] [address] #### THMET #### [facility] ([id number]) [address] [place] [address], CRP [Mass/Vol]on 01-26-2024 C REACTIVE PROTEIN 0.7 mg/dL Normal 0.000-0.744 [facility] Comment on above: Performed By: #### C BREANNA, 2131-10, LIVR, BMP, 22375-3, 1987-06, 07590-0 #### [facility] ([id number]) [address] [place] [address], [address] [address] #### THMET #### [facility] ([id number]) [address] [place] [address], ESR Photometric method (Bld) [Velocity]on 01-26-2024 ESR, ERYTHROCYTE SEDIMENTATION RATE 1 mm/h Normal 0-20 [facility] Comment on above: Performed By: #### C BREANNA, 2131-10, LIVR, BMP, 21120-9, 1987-06, 19010-2 #### [facility] ([id number]) [address] [place] [address], [address] [address] #### THMET #### [facility] ([id number]) [address] [place] [address], LIVER PANELon 01-26-2024 Albumin [Mass/Vol] 3.7 g/dL Normal 3.2-5.3 [facility] Comment on above: Performed By: #### C BC, 2131-10, LIVR, BMP, 68431-0, 1987-06, 65538-3 #### [facility] ([id number]) [address] [place] [address], [address] [place] [address] #### THMET #### [facility] ([id number]) [address] [place] [address], ALP [Catalytic activity/Vol] 29 U/L Low 39-130 [facility] Comment on above: Performed By: #### C BC, 2131-10, LIVR, BMP, 99583-6, 1987-06, 26391-2 #### [facility] ([id number]) [address] [place] [address], [address] [place] [address] #### THMET #### [facility] ([id number]) [address] [place] [address], ALT [Catalytic activity/Vol] 8 U/L Normal 0-31 [facility] Comment on above: Performed By: #### C BREANNA, 2131-10, LIVR, BMP, 70122-0, 1987-06, 82549-0 #### [facility] ([id number]) [address] [place] [address], [address] [place] [address] #### THMET #### [facility] ([id number]) [address] [place] [address], AST [Catalytic activity/Vol] 19 U/L Normal 0-41 [facility] Comment on above: Performed By: #### C BC, 2131-10, LIVR, BMP, 55672-5, 1987-06, 88074-3 #### [facility] ([id number]) [address] [place] [address], [address] [place] [address] #### THMET #### [facility] ([id number]) [address] [place] [address], Bilirubin [Mass/Vol] 0.4 mg/dL Normal 0.3-1.2 [facility] Comment on above: Performed By: #### C BREANNA, 2131-10, LIVR, BMP, 88495-6, 1987-06, 64278-9 #### [facility] ([id number]) [address] [place] [address], [address] [place] [address] #### THMET #### [facility] ([id number]) [address] [facility], Bilirubin.direct [Mass/Vol] 0.1 mg/dL Normal 0.0-0.4 [facility] Comment on above: Performed By: #### C BREANNA, 2131-10, LIVR, BMP, 82473-5, 1987-06, 11036-5 #### [facility] ([id number]) [address] [place] [address], [address] [place] [address] #### THMET #### [facility] ([id number]) [address] [place] [address], Protein [Mass/Vol] 7.0 g/dL Normal 6.0-8.0 [facility] Comment on above: Performed By: #### C BREANNA, 2131-10, LIVR, BMP, 09912-1, 1987-06, 76170-4 #### [facility] ([id number]) [address] [place] [address], [address] [place] [address] #### THMET #### [facility] ([id number]) [address] [place] [address], THIOPURINE METABOLITESon 6 THIOGUANINE Not performed Normal [facility] Comment on above: Result Comment: NOTE Thiopurine Metabolites, B was cancelled on 02/02/2024 at 16:27; Quantity not sufficient to test. Test Performed by: [facility] [address] [place] [address] Press Setup Operator: Celi Fernandez Ph.D.; CLIA# [id number] Performed By: #### 2 276-4, CBCA, FEPR #### [facility] ([id number]) [address] [facility], [address] [place] [address] VITAMIN B12on 01-26-2024 Cobalamin (Vitamin B12) [Mass/Vol] 239 pg/mL Normal 180-914 [facility] Comment on above: Performed By: #### C BC, 2131-10, LIVR, BMP, 23553-0, 1987-, 38232-5 #### [facility] ([id number]) [address] [facility], [address] [place] [address] #### THMET #### [facility] ([id number]) [address] [facility], Vitamin D+Metabolites [Mass/ Vol]on 01-26-2024 VITAMIN D 25 HYD TOT 10.1 ng/mL Low 30-100 [facility] Comment on above: Result Comment: Vitamin D status 25 [place] Vitamin D Deficiency <20 ng/mL Insufficiency 20-29 ng/mL Sufficiency 30-100 ng/mL Toxicity >100 ng/mL NOTE: A pediatric reference range has not been established by the assistant curator of this kit. The [place] [employer] recommends a Vitamin D level of = or >20ng/mL in infants and children. Performed By: #### 2 276-4, CBCA, FEPR #### [facility] ([id number]) [address] [facility], [address] [place] [address] HCG ( test) Ql (U)o n 01-23-2024 Interpretation and review of laboratory results Abnormal [facility] Preg Test, Ur Positive Negative [facility] Urinalysis macro (dipstick) panel (U)on 01-23-2024 Bilirubin, UA Negative Negative - 4(70) +++ mg/dL [facility] Blood, UA Positive Negative - 50 Enrrique/mcL [facility] Clarity, UA Clear [facility] Color, UA Yellow [facility] Glucose, UA Negative Negative - 1999(110) ++++ mg/dL [facility] Interpretation and review of laboratory results Abnormal [facility] Ketones, UA Positive Negative - 160(16) ++++ mg/dL [facility] Leukocytes, UA Negative Negative - 500+++ Cam/mcL [facility] Nitrite, UA Negative Negative - Positive [facility] pH, UA 7 5 - 9 [facility] Protein, UA Trace Negative - 1999(20) ++++ mg/dL [facility] Spec Grav, UA 1.015 1 - 1.03 [facility] Urobilinogen, UA 1.0 0.2 - 12 mg/dL [facility] KAY FECAL OCCULT BLDon 01-02 Hemoglobin.gastrointe stinal Ql (Stl) Negative Normal NEG [facility] Comment on above: Performed By: #### 2 335-8 #### [facility] ([id number]) [address] [place] [address], [place] [address] CBC AND AUTO DIFFon 12-01-19 ABSOLUTE BASOPHIL 0.0 X10E9/L Normal 0.0-0.2 [facility] Comment on above: Performed By: #### C EDWIN ARROYO, 2276-4 #### [facility] ([id number]) [address], [address] [place] [address] ABSOLUTE NEUTROPHIL 1.9 X10E9/L Normal 1.5-6.6 [facility] Comment on above: Performed By: #### C EDWIN ARROYO, 2276-4 #### [facility] ([id number]) [address], [address] [place] [address] Basophils/100 WBC (Bld) 0.5 % Normal [facility] Comment on above: Performed By: #### EDWIN Johnson BCA, 2276-4 #### [facility] ([id number]) [address], [address] [place] [address] Eosinophils (Bld) [#/Vol] 0.1 10*3/uL Normal 0.0-0.4 [facility] Comment on above: Performed By: #### C CRUZ, FEPR, 2275-4 #### [facility] ([id number]) [address], [address] [place] [address] Eosinophils/100 WBC (Bld) 2.3 % Normal [facility] Comment on above: Performed By: #### Elizabeth ARROYO, FEPR, 2275-4 #### [facility] ([id number]) [address], [facility] [address] [place] [address] Erythrocyte distribution width (RBC) [Ratio] 13.3 % Normal 11.5-15.0 [facility] Comment on above: Performed By: #### Elizabeth ARROYO, FEPR, 2275-4 #### [facility] ([id number]) [address], [facility] [address] [place] [address] Hematocrit (Bld) [Volume fraction] 36.2 % Normal 35-47 [facility] Comment on above: Performed By: #### C CRUZ, FEPR, 4 #### [facility] ([id number]) [address], [facility] [address] [place] [address] Hemoglobin (Bld) [Mass/Vol] 12.8 g/dL Normal 11.7-15.5 [facility] Comment on above: Performed By: #### Elizabeth BCA, FEPR, 2275-4 #### [facility] ([id number]) [address], [facility] [address] [place] [address] Lymphocytes (Bld) [#/Vol] 2.3 10*3/uL Normal 1.0-3.5 [facility] Comment on above: Performed By: #### C BCA, FEPR, 2275-4 #### [facility] ([id number]) [address], [address] [place] [address] Lymphocytes/100 WBC (Bld) 47.4 % Normal [facility] Comment on above: Performed By: #### C CRUZ FEPR, 2275-05 #### [facility] ([id number]) [address], [address] [place] [address] MCH (RBC) [Entitic mass] 33.2 pg Normal 27-34 [facility] Comment on above: Performed By: #### C CRUZ, FEPR, 2275- #### [facility] ([id number]) [address], [address] [place] [address] MCHC (RBC) [Mass/Vol] 35.5 g/dL Normal 32-36 [facility] Comment on above: Performed By: #### Elizabeth ARROYO, FEPR, 2275-05 #### [facility] ([id number]) [address], [address] [place] [address] MCV (RBC) [Entitic vol] 94 fL Normal 80-100 [facility] Comment on above: Performed By: #### Elizabeth ARROYO, FEPR, 2275-05 #### [facility] ([id number]) [address], [address] [place] [address] Monocytes (Bld) [#/Vol] 0.4 10*3/uL Normal 0-0.9 [facility] Comment on above: Performed By: #### Elizabeth ARROYO, FEPR, 2275-05 #### [facility] ([id number]) [address], [address] [place] [address] Monocytes/100 WBC (Bld) 9.1 % Normal [facility] Comment on above: Performed By: #### Elizabeth ARROYO, FEPR, 2275-05 #### [facility] ([id number]) [address], [address] [place] [address] Neutrophils/100 WBC (Bld) 40.7 % Normal [facility] Comment on above: Performed By: #### Elizabeth BCA, FEPR, 4 #### [facility] ([id number]) [address], [address] [place] [address] Platelet mean volume (Bld) [Entitic vol] 11.1 fL Normal 7-12 [facility] Comment on above: Performed By: #### C BCA, FEPR, 6-4 #### [facility] ([id number]) [address], [facility] [address] [place] [address] Platelets (Bld) [#/Vol] 187 10*3/uL Normal 150-450 [facility] Comment on above: Performed By: #### C BCA, FEPR, 2275-4 #### [facility] ([id number]) [address], [facility] [address] [place] [address] RBC COUNT 3.87 X10E12/L Normal 3.80-5.20 [facility] Comment on above: Performed By: #### Elizabeth BCA, FEPR, 2275-4 #### [facility] ([id number]) [address] [address] [place] [address] WBC (Bld) [#/Vol] 4.8 10*3/uL Normal 4.0-11.0 [facility] Comment on above: Performed By: #### Elizabeth BCA, FEPR, 2275-4 #### [facility] ([id number]) [address] [address] [place] [address] FERRITINon 12-01-2023 Ferritin [Mass/Vol] 12 ng/mL Normal 11-307 [facility] Comment on above: Performed By: #### C BCA, FEPR, 2275-4 #### [facility] ([id number]) [address] [address] [place] [address] IRON PROFILEon 12-01-2023 Iron [Mass/Vol] 74 ug/dL Normal 50-170 [facility] Comment on above: Performed By: #### Elizabeth BCA, FEPR, 2275-4 #### [facility] ([id number]) [address] [address] [place] [address] IRON BINDING 344 ug/dL Normal 250-425 [facility] Comment on above: Performed By: #### C BCA, FEPR, 6-4 #### [facility] ([id number]) [address], [facility] [address] [place] [address] IRON SATURATION 21 % SATURATION Normal 15-50 [facility] Comment on above: Performed By: #### C BCA, FEPR, 6-4 #### [facility] ([id number]) [address] [address] CBC AND AUTO DIFFon 08-03- 24 ABSOLUTE BASOPHIL 0.0 X10E9/L Normal 0.0-0.2 [facility] Comment on above: Performed By: #### 2 276-4, CBCA, FEPR #### [facility] ([id number]) [address] [address] ABSOLUTE NEUTROPHIL 2.7 X10E9/L Normal 1.5-6.6 [facility] Comment on above: Performed By: #### 2 276-4, CBCA, FEPR #### [facility] ([id number]) [address] [address] Basophils/100 WBC (Bld) 0.4 % Normal [facility] Comment on above: Performed By: #### 2 276-4, CBCA, FEPR #### [facility] ([id number]) [address] [address] Eosinophils (Bld) [#/Vol] 0.1 10*3/uL Normal 0.0-0.4 [facility] Comment on above: Performed By: #### 2 276-4, CBCA, FEPR #### [facility] ([id number]) [address] [place] [place] [address] Eosinophils/100 WBC (Bld) 2.0 % Normal [facility] Comment on above: Performed By: #### 2 276-4, CBCA, FEPR #### [facility] ([id number]) [address], [facility] [address] [place] [address] Erythrocyte distribution width (RBC) [Ratio] 13.5 % Normal 11.5-15.0 [facility] Comment on above: Performed By: #### 2 276-4, CBCA, FEPR #### [facility] ([id number]) [address], [facility] [address] [place] [address] Hematocrit (Bld) [Volume fraction] 35.2 % Normal 35-47 [facility] Comment on above: Performed By: #### 2 276-4, CBCA, FEPR #### [facility] ([id number]) [address], [facility] [address] [place] [address] Hemoglobin (Bld) [Mass/Vol] 12.2 g/dL Normal 11.7-15.5 [facility] Comment on above: Performed By: #### 2 276-4, CBCA, FEPR #### [facility] ([id number]) [address] [address] Lymphocytes (Bld) [#/Vol] 1.9 10*3/uL Normal 1.0-3.5 [facility] Comment on above: Performed By: #### 2 276-4, CBCA, FEPR #### [facility] ([id number]) [address], [facility] [address] [place] [address] Lymphocytes/100 WBC (Bld) 36.8 % Normal [facility] Comment on above: Performed By: #### 2 276-4, CBCA, FEPR #### [facility] ([id number]) [address], [facility] [address] [place] [address] MCH (RBC) [Entitic mass] 31.9 pg Normal 27-34 [facility] Comment on above: Performed By: #### 2 276-4, CBCA, FEPR #### [facility] ([id number]) [address], [address] [place] [address] MCHC (RBC) [Mass/Vol] 34.5 g/dL Normal 32-36 [facility] Comment on above: Performed By: #### 2 276-4, CBCA, FEPR #### [facility] ([id number]) [address], [facility] [address] [place] [address] MCV (RBC) [Entitic vol] 93 fL Normal 80-100 [facility] Comment on above: Performed By: #### 2 276-4, CBCA, FEPR #### [facility] ([id number]) [address], [address] [place] [address] Monocytes (Bld) [#/Vol] 0.4 10*3/uL Normal 0-0.9 [facility] Comment on above: Performed By: #### 2 276-4, CBCA, FEPR #### [facility] ([id number]) [address], [address] [place] [address] Monocytes/100 WBC (Bld) 8.3 % Normal [facility] Comment on above: Performed By: #### 2 276-4, CBCA, FEPR #### [facility] ([id number]) [address], [address] [place] [address] Neutrophils/100 WBC (Bld) 52.5 % Normal [facility] Comment on above: Performed By: #### 2 276-4, CBCA, FEPR #### [facility] ([id number]) [address], [address] [place] [address] Platelet mean volume (Bld) [Entitic vol] 10.7 fL Normal 7-12 [facility] Comment on above: Performed By: #### 2 276-4, CBCA, FEPR #### [facility] ([id number]) [address], [facility] [address] [place] [address] Platelets (Bld) [#/Vol] 198 10*3/uL Normal 150-450 [facility] Comment on above: Performed By: #### 2 276-4, CBCA, FEPR #### [facility] ([id number]) [address], [address] [place] [address] RBC COUNT 3.81 X10E12/L Normal 3.80-5.20 [facility] Comment on above: Performed By: #### 2 276-4, CBCA, FEPR #### [facility] ([id number]) [address], [facility] [address] [place] [address] WBC (Bld) [#/Vol] 5.2 10*3/uL Normal 4.0-11.0 [facility] Comment on above: Performed By: #### 2 276-4, CBCA, FEPR #### [facility] ([id number]) [address], [address] [place] [address] FERRITINon 08-04-2023 Ferritin [Mass/Vol] 27 ng/mL Normal 11-307 [facility] Comment on above: Performed By: #### 2 276-4, CBCA, FEPR #### [facility] ([id number]) [address], [address] [place] [address] IRON PROFILEon 08-04-2023 Iron [Mass/Vol] 46 ug/dL Low 50-170 [facility] Comment on above: Performed By: #### 2 276-4, CBCA, FEPR #### [facility] ([id number]) [address], [address] [place] [address] IRON BINDING 273 ug/dL Normal 250-425 [facility] Comment on above: Performed By: #### 2 276-4, CBCA, FEPR #### [facility] ([id number]) [address], [address] [place] [address] IRON SATURATION 17 % SATURATION Normal 15-50 [facility] Comment on above: Performed By: #### 2 276-4, CBCA, FEPR #### [facility] ([id number]) [address], [address] [place] [address] M. tuberculosis stim IFN-g p carrillo (Bld)on 08-04-2023 Mitogen minus Nil Result 9.92 IU/mL Normal [facility] Comment on above: Performed By: #### 7 1775-1 #### [employer] ([id number]) [address] [place] [address], Nil Result 0.08 IU/mL Normal [facility] Comment on above: Result Comment: NOTE Test Performed by: [facility] [address] [place] [address] Press Setup Operator: Celi Fernandez Ph.D.; CLIA# [id number] Performed By: #### 7 1775-1 #### [employer] ([id number]) [address] [place] [address], QuantiFERON-Tb Gold Plus Result Negative Normal Negative [facility] Comment on above: Result Comment: NOTE No [...] IU/mL. Performed By: #### 7 1775-1 #### [employer] ([id number]) 57[address] [facility], TB1 Ag minus Nil Result 0.09 IU/mL Normal [facility] Comment on above: Performed By: #### 7 1775-1 #### [facility] ([id number]) 57[address] [facility], TB2 Ag minus Nil Result 0.01 IU/mL Normal [facility] Comment on above: Performed By: #### 7 1775-1 #### [facility] ([id number]) [address] [facility], PAP ACOG PANEL 2: 30 to 65on 05-07-2022 . . Normal [facility] Comment on above: Result Comment: Perf ormed at: WB Performed By: #### 4 [id number] #### [facility] [address] [place] [address] Dr. Bisi Glass Age Gdln ACOG Testing 30-65 [facility] Comment on above: Performed By: #### 4 [id number] #### [facility] [address] [place] [address] Dr. Bisi Glass DIAGNOSIS: Comment Normal [facility] Comment on above: Result Comment: NEGA TIVE FOR INTRAEPITHELIAL LESION OR MALIGNANCY. Performed at: WB Performed By: #### 4 [id number] #### [facility] [address] [place] [address] Dr. Bisi Glass HPV Aptima Negative Normal Negative [facility] Comment on above: Result Comment: This nucleic acid amplification test detects fourteen high-risk HPV types (16,18,31,33,35,39,45,51,52,56,58,59,66,68) without differentiation. Performed at: =G Performed By: #### 4 [id number] #### [facility] [address] [address] [address] Bisi Glass HPV Genotype Reflex Comment Normal [facility] Comment on above: Result Comment: Crit eria not met, HPV Genotype not performed. Performed at: WB Performed By: #### 4 [id number] #### [facility] [address] [place] [address] Dr. Bisi Glass Methodology: Comment Normal [facility] Comment on above: Result Comment: This liquid based ThinPrep(R) pap test was screened with the use of an image guided system. Performed at: WB Performed By: #### 4 [id number] #### [facility] [address] [place], [place] [address] Dr. Bisi Glass Note: Comment Normal [facility] [...] Performed at: WB Performed By: #### 4 [id number] #### [facility] [address] [place], [place] [address] Dr. Bisi Glass Performed by: Comment Normal [facility] Comment on above: Result Comment: Ngozi Hamlin, [employer] Livestock Farmer (ASCP) Performed at: WB Performed By: #### 4 [id number] #### [facility] [address] [place], [place] [address] Dr. Bisi Glass Specimen adequacy: Comment Normal [facility] Comment on above: Result Comment: Sati sfactory for evaluation. Endocervical and/or squamous metaplastic cells (endocervical component) are present. Performed at: WB Performed By: #### 4 [id number] #### [facility] [address] [place], [place] [address] Dr. Bisi Glass [facility] 02-11-2017 [facility] Letter [facility]North [facility] [place], [place] [address]Ldvsa: [phone]: [facility] [place], [place] [address]Mzmlo: [phone]: [facility] [place], [place] [address]Vpaqm: [phone]: Toll Free: [phone] [email or web address] Raza Roldan M.D., Jhon Mora M.D.Barry Camarena M.D.Samara Hernandez D.O..Oksana Benson M.D.Nati Sullivan M.D. Matt Bobby M.D.February 11, 2017[facility] [facility] [address]Ulfn Ms. Storey,You missed your scheduled appointment on Saturday February 11, 2017. Pleasecall our office to reschedule. If you need to cancel any futureappointments, please call to give us 24 hour notice so that we can offer yourappointment to another patient.Sincerely,Brando Carvajal. [facility] 12-03-2016 HOSP Infusion Center (HEMTCL) JUAN LUIS STOREY ([id number]) 1990 [facility] Time Provider Kgcfxbpwuh60/24/17 1:00 PM CHAIR 1 JOSE HEMTCL During your visit today, we recorded the following information about you: Temperature Pulse Respiration Blood pressure 98.9 degrees 76/minute 18/minute 97/64Referring Provider: SAMARA HERNANDEZ [[id number]]Allergies As of Date: 12/03/2016(No Known Allergies)Date Reviewed: 12/03/2016Reviewed by: Kristi (Rn) JAD Partida - Fully AssessedPrimary Visit Diagnosis:Anemia, unspecified type [D64.9]Order(s):TREATMEN T PARAMETER-NOT NEEDED [1859729] Order #: [id number]: 1 HEMONC NURSING COMMUNICATION [[id number]] Order #: [id number]: 1 STANDING HEMONC NURSING COMMUNICATION [[id number]] Order #: [id number]: 1 STANDING HEMONC NURSING COMMUNICATION [[id number]] Order #: [id number]: 1 STANDING HEMONC NURSING COMMUNICATION [[id number]] Order #: [id number]: 1 STANDING HEMONC NURSING COMMUNICATION [[id number]] Order #: [id number]: 1 STANDING HEMONC NURSING COMMUNICATION [[id number]] Order #: [id number]: 1 STANDING [] iron sucrose 200 mg [...] (1 ML) INJECTION* 12/03/2016 Route: INTRAMUSCULAEncounter Number: [id number] Status:Closed by KRISTI PARTIDA on 12/03/16 [facility] CNOVSPon 11-19-2016 CNOVSP Visit (SP) Office (HEMACL) JUAN LUIS STOREY ([id number]) 1990 [facility] Time Provider Hjpxcmwnvx76/10/17 11:00 AM SAMARA HERNANDEZ During your visit today, we recorded the following information about you: Temperature Pulse Respiration Blood pressure 97.8 degrees 78/minute 18/minute 96/61 Weight Height 59.6 kg 1.632 Clara Berger 11/19/2016 11:15 AM SignedPatient states feeling more fatigue.Samara Hernandez DO 11/23/2016 9:43 AM SignedPATIENT NAME: Juan Luis StoreyMRN: [id number] PHYSICIAN: IFTIKHAR RAZO[address] [place] [address] CARE PHYSICIAN: Iftikhar RazoOTHER PHYSICIANS:CHIEF COMPLAINT: Anemia, [...] PRESENT ILLNESS: This is a 26year old -Moldovan femaleCBC from 05/22/16 reveals white blood cell [...] but hasntseen them yet this year. Dr. Moonye. 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.June 04, 2016Eats a bag of [...] I answered all questions satisfactorily..Mariano Hernandez D.O.Medical OncologistIndependence, [place]Referring Provider: SAMARA HERNANDEZ [[id number]]Allergies As of Date: 11/19/2016(No Known Allergies)Date Reviewed: [...] Status:Closed by SAMARA HERNANDEZ DO on 11/23/16 [facility] 11-19-2016 PROGRESS HNO ID: [id number]: Samara Ortiz: (none)Author Type: PhysicianType: Progress NotesFiled: 11/23/2016 9:43 AMNote Text:PATIENT NAME: Juan Luis StoreyMRN: [id number] PHYSICIAN: IFTIKHAR RAZO[address] CARE PHYSICIAN: Iftikhar RazoOTHER PHYSICIANS:CHIEF COMPLAINT: [...] PRESENT ILLNESS: This is a 26year old -[place]old[place] femaleCBC from 05/22/16 reveals white blood cell [...] her second kid in dec 2014.Works a [employer] service.June 04, 2016Eats a bag of ice [...] I answered all questions satisfactorily..Mariano Hernandez D.O.Medical OncologistW[facility] Emergency [facility] Cancer [place], [place] Normal [facility] Remote CBCDIF (for COUNT INCLUDES THE [facility] use o nly)on 11-19-2016 Abs Baso 0.02 k/uL Normal <0.11 [facility] Abs Taos 0.40 k/uL Normal 0.00-0.86 [facility] Abs Neut 3.13 k/uL Normal 1.45-7.50 [facility] Basophils/100 WBC Auto (Bld) 0.4 % Normal [facility] Eosinophils 0.05 10*3/uL Normal <0.46 [facility] Eosinophils/100 leukocytes 0.9 % Normal [facility] Erythrocyte distribution width Auto Ratio (RBC) 13.5 % Normal 11.5-15.0 [facility] Erythrocytes (RBC) 3.87 10*6/uL Low 3.90-5.20 [facility] Hematocrit (HCT) 33.0 % Low 36.0-46.0 [facility] Hemoglobin mass conc (Bld) 10.5 g/dL Low 11.5-15.5 [facility] Lymphocytes 1.70 10*3/uL Normal 1.00-4.00 [facility] Lymphocytes/100 leukocytes 32.1 % Normal [facility] MCH 27.1 pG Normal 26.0-34.0 [facility] MCHC mass conc (RBC) 31.8 g/dL Normal 30.5-36.0 [facility] MCV 85.3 fL Normal 80.0-100.0 [facility] Monocytes/100 leukocytes 7.5 % Normal [facility] Neutrophils/100 WBC Auto (Bld) 59.1 % Normal [facility] Platelet mean volume (PMV) 11.0 fL Normal 9.0-12.7 [facility] Platelets 288 10*3/uL Normal 150-400 [facility] WBC (Leukocytes) 5.30 10*3/uL Normal 3.70-11.00 [facility] Remote iSTAT BMP (for COUNT INCLUDES THE [facility] us e only)on 11-19-2016 Anion gap 11 mmol/L Normal 0-15 [facility] BUN (urea nitrogen) 12 mg/dL Normal 8-25 [facility] Chloride 105 mmol/L Normal 98-110 [facility] CO2 24 mmol/L Normal 23-32 [facility] Creatinine 0.70 mg/dL Normal 0.70-1.40 [facility] eGFR (non-black) mL/min/{1.73_m2} Normal [facility] Comment on above: Result Comment: eGFR [...] Glucose mass conc 79 mg/dL Normal 65-100 [facility] Ionized Calcium, WB 1.14 mmol/L Normal 1.08-1.30 [facility] Comment on above: Result Comment: Plea se note: This value represents ionized calcium not total calcium. Potassium molar conc 4.0 mmol/L Normal 3.5-5.0 [facility] Sodium 140 mmol/L Normal 132-148 [facility] Ferritinon 10-29-2016 Ferritin 19.8 ng/mL Normal 14.7-205.1 [facility] Comment on above: Performed By: #### I CHERYL FERR ####[facility] [place] [address] [place], [place] [phone] Iron and TIBCon 10-29-2016 Iron 21 ug/dL Low 41-186 [facility] Comment on above: Performed By: #### I CHERYL FERR ####[facility] [place] [address] [place], [place] [phone] TIBC 331 ug/dL Normal 232-386 [facility] Comment on above: Performed By: #### I CHERYL, FERR ####[facility] [place] [address] [place], [place] [phone] Transferrin Saturatn 6 % Low 15-57 [facility] Comment on above: Performed By: #### I CHERYL, FERR ####[facility] [place] [address] [place], [place] [phone] Remote CBCDIF (for COUNT INCLUDES THE [facility] use o nly)on 10-29-2016 Abs Baso 0.02 k/uL Normal 0.00-0.10 [facility] Abs Taos 0.42 k/uL Normal 0.00-0.86 [facility] Abs Neut 3.06 k/uL Normal 1.45-7.50 [facility] Basophils/100 WBC Auto (Bld) 0.3 % Normal [facility] Eosinophils 0.11 10*3/uL Normal 0.00-0.45 [facility] Eosinophils/100 leukocytes 1.8 % Normal [facility] Erythrocyte distribution width Auto Ratio (RBC) 12.9 % Normal 11.5-15.0 [facility] Erythrocytes (RBC) 3.90 10*6/uL Normal 3.90-5.20 [facility] Hematocrit (HCT) 34.0 % Low 36.0-46.0 [facility] Hemoglobin mass conc (Bld) 10.8 g/dL Low 11.5-15.5 [facility] Lymphocytes 2.37 10*3/uL Normal 1.00-4.00 [facility] Lymphocytes/100 leukocytes 39.6 % Normal [facility] MCH 27.7 pG Normal 26.0-34.0 [facility] MCHC mass conc (RBC) 31.8 g/dL Normal 30.5-36.0 [facility] MCV 87.2 fL Normal 80.0-100.0 [facility] Monocytes/100 leukocytes 7.0 % Normal [facility] Neutrophils/100 WBC Auto (Bld) 51.3 % Normal [facility] Platelet mean volume (PMV) 10.8 fL Normal 9.0-12.7 [facility] Platelets 268 10*3/uL Normal 150-400 [facility] WBC (Leukocytes) 5.98 10*3/uL Normal 3.70-11.00 [facility] Remote iSTAT BMP (for COUNT INCLUDES THE [facility] us e only)on 10-29-2016 Anion gap 11 mmol/L Normal 0-15 [facility] BUN (urea nitrogen) 9 mg/dL Normal 8-25 [facility] Chloride 104 mmol/L Normal 98-110 [facility] CO2 26 mmol/L Normal 23-32 [facility] Creatinine 0.70 mg/dL Normal 0.70-1.40 [facility] eGFR (non-black) mL/min/{1.73_m2} Normal Cl [facility] Comment on above: Result Comment: eGFR [...] Glucose mass conc 83 mg/dL Normal 65-100 [facility] Ionized Calcium, WB 1.16 mmol/L Normal 1.08-1.30 [facility] Comment on above: Result Comment: Plea se note: This value represents ionized calcium not total calcium. Potassium molar conc 3.8 mmol/L Normal 3.5-5.0 [facility] Sodium 141 mmol/L Normal 132-148 [facility] Ferritinon 10-01-2016 Ferritin 9.1 ng/mL Low 14.7-205.1 [facility] Comment on above: Performed By: #### I CHERYL FERR ####[facility] [place] [address] [place], [place] [phone] Iron and TIBCon 10-01-2016 Iron 34 ug/dL Low 41-186 [facility] Comment on above: Performed By: #### I CHERYL, FERR ####[facility] [place] [address] [place], [place] [phone] TIBC 316 ug/dL Normal 232-386 [facility] Comment on above: Performed By: #### I CHERYL, FERR ####[facility] [place] [address] [place], [place] [phone] Transferrin Saturatn 11 % Low 15-57 [facility] Comment on above: Performed By: #### I CHERYL, FERR ####[facility] [place] [address] [place], [place] [phone] Remote CBCDIF (for COUNT INCLUDES THE [facility] use o nly)on 10-01-2016 Abs Baso 0.02 k/uL Normal 0.00-0.10 [facility] Abs Taos 0.53 k/uL Normal 0.00-0.86 [facility] Abs Neut 2.48 k/uL Normal 1.45-7.50 [facility] Basophils/100 WBC Auto (Bld) 0.4 % Normal [facility] Eosinophils 0.09 10*3/uL Normal 0.00-0.45 [facility] Eosinophils/100 leukocytes 1.6 % Normal [facility] Erythrocyte distribution width Auto Ratio (RBC) 13.7 % Normal 11.5-15.0 [facility] Erythrocytes (RBC) 3.85 10*6/uL Low 3.90-5.20 [facility] Hematocrit (HCT) 33.5 % Low 36.0-46.0 [facility] Hemoglobin mass conc (Bld) 10.7 g/dL Low 11.5-15.5 [facility] Lymphocytes 2.36 10*3/uL Normal 1.00-4.00 [facility] Lymphocytes/100 leukocytes 43.1 % Normal [facility] MCH 27.8 pG Normal 26.0-34.0 [facility] MCHC mass conc (RBC) 31.9 g/dL Normal 30.5-36.0 [facility] MCV 87.0 fL Normal 80.0-100.0 [facility] Monocytes/100 leukocytes 9.7 % Normal [facility] Neutrophils/100 WBC Auto (Bld) 45.2 % Normal [facility] Platelet mean volume (PMV) 10.8 fL Normal 9.0-12.7 [facility] Platelets 282 10*3/uL Normal 150-400 [facility] WBC (Leukocytes) 5.48 10*3/uL Normal 3.70-11.00 [facility] Remote iSTAT BMP (for COUNT INCLUDES THE [facility] us e only)on 10-01-2016 Anion gap 13 mmol/L Normal 0-15 [facility] BUN (urea nitrogen) 14 mg/dL Normal 8-25 [facility] Chloride 102 mmol/L Normal 98-110 [facility] CO2 24 mmol/L Normal 23-32 [facility] Creatinine 0.70 mg/dL Normal 0.70-1.40 [facility] eGFR (non-black) mL/min/{1.73_m2} Normal Cl [facility] Comment on above: Result Comment: eGFR [...] Glucose mass conc 93 mg/dL Normal 65-100 [facility] Ionized Calcium, WB 1.14 mmol/L Normal 1.08-1.30 [facility] Comment on above: Result Comment: Plea se note: This value represents ionized calcium not total calcium. Potassium molar conc 3.7 mmol/L Normal 3.5-5.0 [facility] Sodium 139 mmol/L Normal 132-148 [facility] Remote CBCDIF (for COUNT INCLUDES THE [facility] use o nly)on 08-29-2016 Abs Baso 0.02 k/uL Normal 0.00-0.10 [facility] Abs Taos 0.52 k/uL Normal 0.00-0.86 [facility] Abs Neut 3.37 k/uL Normal 1.45-7.50 [facility] Basophils/100 WBC Auto (Bld) 0.3 % Normal [facility] Eosinophils 0.10 10*3/uL Normal 0.00-0.45 [facility] Eosinophils/100 leukocytes 1.7 % Normal [facility] Erythrocyte distribution width Auto Ratio (RBC) 18.7 % High 11.5-15.0 [facility] Erythrocytes (RBC) 3.97 10*6/uL Normal 3.90-5.20 [facility] Hematocrit (HCT) 33.0 % Low 36.0-46.0 [facility] Hemoglobin mass conc (Bld) 10.5 g/dL Low 11.5-15.5 [facility] Lymphocytes 1.92 10*3/uL Normal 1.00-4.00 [facility] Lymphocytes/100 leukocytes 32.4 % Normal [facility] MCH 26.4 pG Normal 26.0-34.0 [facility] MCHC mass conc (RBC) 31.8 g/dL Normal 30.5-36.0 [facility] MCV 83.1 fL Normal 80.0-100.0 [facility] Monocytes/100 leukocytes 8.8 % Normal [facility] Neutrophils/100 WBC Auto (Bld) 56.8 % Normal [facility] Platelet mean volume (PMV) 10.0 fL Normal 9.0-12.7 [facility] Platelets 263 10*3/uL Normal 150-400 [facility] WBC (Leukocytes) 5.93 10*3/uL Normal 3.70-11.00 [facility] Remote iSTAT BMP (for COUNT INCLUDES THE [facility] u se only)on 08-29-2016 Anion gap 12 mmol/L Normal 0-15 [facility] BUN (urea nitrogen) 12 mg/dL Normal 8-25 [facility] Chloride 104 mmol/L Normal 98-110 [facility] CO2 24 mmol/L Normal 23-32 [facility] Creatinine 0.80 mg/dL Normal 0.70-1.40 [facility] eGFR (non-black) mL/min/{1.73_m2} [facility] [...] Glucose mass conc 91 mg/dL Normal 65-100 [facility] Ionized Calcium, WB 1.14 mmol/L Normal 1.08-1.30 [facility] Comment on above: Result Comment: Lore note: This value represents ionized calcium not total calcium. Potassium molar conc 3.7 mmol/L Normal 3.5-5.0 [facility] Sodium 140 mmol/L Normal 132-148 [facility] Vital Signs Date Time Vital Sign Value Performing Clinician Facility 04-26-2024 10:260400 Body mass index (BMI) [Ratio] 30.65 kg/m2 Parihs Courtney DO Work Phone: [facility] 04-26-2024 10:260400 Body weight 83.55 kg Parish Courtney DO Work Phone: [facility] 04-26-2024 10:260400 Diastolic blood pressure 76 mm[Hg] Parish Courtney DO Work Phone: [facility] 04-26-2024 10:260400 Systolic blood pressure 122 mm[Hg] Parish Courtney DO Work Phone: [facility] 04-19-2024 13:13-0400 Body temperature 99.19 [degF] [facility] 1 [facility] 04-19-2024 13:130400 Diastolic blood pressure 79 mm[Hg] [facility] 1 [facility] 04-19-2024 13:13-0400 Heart rate 96 /min [facility] 1 [facility] 04-19-2024 13:13-0400 Respiratory rate 20 /min Wl 1 [facility] 04-19-2024 13:13-0400 Systolic blood pressure 116 mm[Hg] W[facility] 1 [facility] 04-19-2024 10:41-0400 Body mass index (BMI) [Ratio] 30.63 kg/m2 Wl 1 [facility] 04-19-2024 10:41-0400 Body weight 83.5 kg Wl 1 [facility] 04-19-2024 09:53-0400 Body height 165.1 cm Sharda Montiel MD Work Phone: [facility] 04-19-2024 09:53-0400 Body mass index (BMI) [Ratio] 30.62 kg/m2 Sharda Montiel MD Work Phone: [facility] 04-19-2024 09:53-0400 Body weight 83.46 kg Sharda Montiel MD Work Phone: [facility] 04-19-2024 09:53-0400 Diastolic blood pressure 86 mm[Hg] Sharda Montiel MD Work Phone: [facility] 04-19-2024 09:53-0400 Systolic blood pressure 140 mm[Hg] Sharda Montiel MD Work Phone: [facility] 04-14-2024 14:33-0500 Body mass index (BMI) [Ratio] 30.42 kg/m2 Parish Courtney DO Work Phone: [facility] 04-14-2024 14:33-0500 Body weight 82.92 kg Parish Courtney DO Work Phone: [facility] 04-14-2024 14:33-0500 Diastolic blood pressure 72 mm[Hg] Parish Courtney DO Work Phone: [facility] 04-14-2024 14:33-0500 Systolic blood pressure 122 mm[Hg] Parish Courtney DO Work Phone: [facility] 03-17-2024 10:51-0500 Body mass index (BMI) [Ratio] 29.31 kg/m2 Yaquelin Horne SIMI Work Phone: [facility] 03-17-2024 10:51-0500 Body weight 79.89 kg Yaquelin Horne SIMI Work Phone: [facility] 03-17-2024 10:51-0500 Diastolic blood pressure 70 mm[Hg] Yaquelin Horne SIMI Work Phone: [facility] 03-17-2024 10:51-0500 Systolic blood pressure 116 mm[Hg] Yaquelin Horne PA Work Phone: [facility] 03-08-2024 12:30-0500 Body temperature 99.81 [degF] [facility] 1 [facility] 03-08-2024 12:30-0500 Diastolic blood pressure 69 mm[Hg] Wlc 1 [facility] 03-08-2024 12:30-0500 Heart rate 103 /min Wl 1 [facility] 03-08-2024 12:30-0500 Respiratory rate 18 /min Wlc 1 [facility] 03-08-2024 12:30-0500 Systolic blood pressure 109 mm[Hg] Wlc 1 [facility] 03-08-2024 10:10-0500 Body mass index (BMI) [Ratio] 29.62 kg/m2 Wl 1 [facility] 03-08-2024 10:10-0500 Body weight 80.74 kg Wlc 1 [facility] 02-18-2024 11:43-0500 Body mass index (BMI) [Ratio] 29.29 kg/m2 Parish Courtney DO Work Phone: [facility] 02-18-2024 11:43-0500 Body weight 79.83 kg Parish Courtney DO Work Phone: [facility] 02-18-2024 11:43-0500 Diastolic blood pressure 72 mm[Hg] Parish Courtney DO Work Phone: [facility] 02-18-2024 11:43-0500 Systolic blood pressure 122 mm[Hg] Parish Courtney DO Work Phone: [facility] 12-12-2023 11:50-0400 Body temperature 98.91 [degF] Wlc 2 [facility] 12-12-2023 11:50-0400 Diastolic blood pressure 66 mm[Hg] Wlc 2 [facility] 12-12-2023 11:50-0400 Heart rate 92 /min Wlc 2 [facility] 12-12-2023 11:50-0400 Respiratory rate 18 /min Wl 2 [facility] 12-12-2023 11:50-0400 Systolic blood pressure 100 mm[Hg] [facility] 2 [facility] 12-12-2023 10:31-0400 Body mass index (BMI) [Ratio] 27.96 kg/m2 [facility] 2 [facility] 12-12-2023 10:31-0400 Body weight 76.2 kg [facility] 2 [facility] 12-01-2023 14:25-0400 Body height 165.1 cm Dominique Josh [employer] Work Phone: [facility] 12-01-2023 14:25-0400 Body mass index (BMI) [Ratio] 27.89 kg/m2 Dominique Josh [employer] Work Phone: [facility] 12-01-2023 14:25-0400 Body temperature 98.8 [degF] Dominique Josh [employer] Work Phone: [facility] 12-01-2023 14:25-0400 Body weight 76.02 kg Dominique Josh [employer] Work Phone: [facility] 12-01-2023 14:25-0400 Diastolic blood pressure 76 mm[Hg] Dominique Josh [employer] Work Phone: [facility] 12-01-2023 14:25-0400 Heart rate 71 /min Dominique Josh [employer] Work Phone: [facility] 12-01-2023 14:25-0400 Respiratory rate 16 /min Dominique Josh [employer] Work Phone: [facility] 12-01-2023 14:25-0400 SaO2% (BldA) [Mass fraction] 99 % Dominique Josh [employer]IL[employer] Work Phone: [facility] 12-01-2023 14:25-0400 Systolic blood pressure 111 mm[Hg] Dominique Josh [employer] OFF[employer]IL[employer] Work Phone: [facility] 10-31-2023 11:13-0400 Body temperature 98.6 [degF] [facility] 2 [facility] 10-31-2023 11:13-0400 Diastolic blood pressure 72 mm[Hg] [facility] 2 [facility] 10-31-2023 11:13-0400 Heart rate 85 /min [facility] 2 [facility] 10-31-2023 11:13-0400 Respiratory rate 18 /min [facility] 2 [facility] 10-31-2023 11:13-0400 Systolic blood pressure 112 mm[Hg] [facility] 2 [facility] 10-31-2023 09:51-0400 Body mass index (BMI) [Ratio] 27.81 kg/m2 [facility] 2 [facility] 10-31-2023 09:51-0400 Body weight 75.8 kg [facility] 2 [facility] 10-31-2023 08:50-0400 Body height 165.1 cm Sharda Montiel MD Work Phone: [facility] 10-31-2023 08:50-0400 Body mass index (BMI) [Ratio] 27.79 kg/m2 Sharda Montiel MD Work Phone: [facility] 10-31-2023 08:50-0400 Body weight 75.75 kg Sharda Montiel MD Work Phone: [facility] 10-31-2023 08:50-0400 Diastolic blood pressure 60 mm[Hg] Sharda Montiel MD Work Phone: [facility] 10-31-2023 08:50-0400 Systolic blood pressure 100 mm[Hg] Sharda Montiel MD Work Phone: [facility] 09-17-2023 09:46-0400 Body mass index (BMI) [Ratio] 27.06 kg/m2 Hilary Traci [employer] OFF[employer]ILDER Work Phone: [facility] 09-17-2023 09:46-0400 Body temperature 98.2 [degF] Hilary Traci [employer] OFF[employer]ILDER Work Phone: [facility] 09-17-2023 09:46-0400 Body weight 73.75 kg Hilary Traci [employer]IL[employer] Work Phone: [facility] 09-17-2023 09:46-0400 Diastolic blood pressure 60 mm[Hg] Hilary Traci [employer] OFF[employer]ILDER Work Phone: [facility] 09-17-2023 09:46-0400 Heart rate 75 /min Hilary Traci [employer]IL[employer] Work Phone: [facility] 09-17-2023 09:46-0400 SaO2% (BldA) [Mass fraction] 97 % Hilary Traci [employer] OFF[employer]ILDER Work Phone: [facility] 09-17-2023 09:46-0400 Systolic blood pressure 98 mm[Hg] Hilary Ruizsler [employer]ILDER Work Phone: [facility] 09-15-2023 12:10-0400 Body temperature 98.71 [degF] [facility] 3 [facility] 09-15-2023 12:10-0400 Diastolic blood pressure 70 mm[Hg] [facility] 3 [facility] 09-15-2023 12:10-0400 Heart rate 75 /min [facility] 3 [facility] 09-15-2023 12:10-0400 Respiratory rate 20 /min [facility] 3 [facility] 09-15-2023 12:10-0400 Systolic blood pressure 117 mm[Hg] [facility] 3 [facility] 09-15-2023 10:43-0400 Body mass index (BMI) [Ratio] 26.89 kg/m2 [facility] 3 [facility] 09-15-2023 10:43-0400 Body weight 73.3 kg [facility] 3 [facility] 08-20-2023 14:15-0400 Body height 165.1 cm Hilary Correauessler [employer] Work Phone: [facility] 08-20-2023 14:15-0400 Body mass index (BMI) [Ratio] 26.36 kg/m2 Hilary Aviles [employer] Work Phone: [facility] 08-20-2023 14:15-0400 Body temperature 98.6 [degF] Hilary Correauessler [employer]ILDER Work Phone: [facility] 08-20-2023 14:15-0400 Body weight 71.85 kg Hilary Correauessler [employer]ILDER Work Phone: [facility] 08-20-2023 14:15-0400 Diastolic blood pressure 72 mm[Hg] Hilary Correauessler [employer]ILDER Work Phone: [facility] 08-20-2023 14:15-0400 Heart rate 87 /min Hilary Correauessler [employer]ILDER Work Phone: [facility] 08-20-2023 14:15-0400 SaO2% (BldA) [Mass fraction] 97 % Hilary Correauessler [employer]ILDER Work Phone: [facility] 08-20-2023 14:15-0400 Systolic blood pressure 116 mm[Hg] Hilary Correauessler [employer] Work Phone: [facility] 08-04-2023 14:48-0400 Body temperature 98.2 [degF] [facility] 2 [facility] 08-04-2023 14:48-0400 Diastolic blood pressure 77 mm[Hg] [facility] 2 [facility] 08-04-2023 14:48-0400 Heart rate 76 /min [facility] 2 [facility] 08-04-2023 14:48-0400 Respiratory rate 20 /min [facility] 2 [facility] 08-04-2023 14:48-0400 Systolic blood pressure 118 mm[Hg] [facility] 2 [facility] 08-04-2023 13:22-0400 Body mass index (BMI) [Ratio] 27.19 kg/m2 [facility] 2 [facility] 08-04-2023 13:22-0400 Body weight 74.12 kg [facility] 2 [facility] 04-21-2023 13:05-0400 Body temperature 97.81 [degF] [facility] 4 [facility] 04-21-2023 13:05-0400 Diastolic blood pressure 75 mm[Hg] [facility] 4 [facility] 04-21-2023 13:05-0400 Heart rate 78 /min [facility] 4 [facility] 04-21-2023 13:05-0400 Respiratory rate 20 /min [facility] 4 [facility] 04-21-2023 13:05-0400 Systolic blood pressure 117 mm[Hg] [address] 04-21-2023 10:29-0400 Body mass index (BMI) [Ratio] 27.89 kg/m2 [address] 04-21-2023 10:29-0400 Body weight 76.[address] 02-20-2023 11:48-0500 Body height 165.1 cm Lyndsey Anders MD Work Phone: [facility] 02-20-2023 11:48-0500 Body mass index (BMI) [Ratio] 27.46 kg/m2 Lyndsey Anders MD Work Phone: [facility] 02-20-2023 11:48-0500 Body temperature 98.91 [degF] Lyndsey Anders MD Work Phone: [facility] 02-20-2023 11:48-0500 Body weight 74.84 kg Lyndsey Anders MD Work Phone: [facility] 02-20-2023 11:48-0500 Diastolic blood pressure 72 mm[Hg] Lyndsey Anders MD Work Phone: [facility] 02-20-2023 11:48-0500 Heart rate 104 /min Lyndsey Anders MD Work Phone: [facility] 02-20-2023 11:48-0500 SaO2% (BldA) [Mass fraction] 99 % Lyndsey Anders MD Work Phone: [facility] 02-20-2023 11:48-0500 Systolic blood pressure 114 mm[Hg] Lyndsey Anders MD Work Phone: [facility] 02-17-2023 14:26-0500 Body temperature 99.1 [degF] [address] 02-17-2023 14:26-0500 Diastolic blood pressure 77 mm[Hg] [address] 02-17-2023 14:26-0500 Heart rate 100 /min [address] 02-17-2023 14:26-0500 SaO2% (BldA) [Mass fraction] 97 % [address] 02-17-2023 14:26-0500 Systolic blood pressure 117 mm[Hg] [address] 02-17-2023 11:45-0500 Body mass index (BMI) [Ratio] 27.69 kg/m2 [address] 02-17-2023 11:45-0500 Body weight 75.[address] 02-17-2023 11:45-0500 Respiratory rate 20 /min [address] 02-06-2023 12:54-0500 Diastolic blood pressure 69 mm[Hg] Pfo 3 [facility] 02-06-2023 12:54-0500 Heart rate 92 /min Pfo 3 [facility] 02-06-2023 12:54-0500 Respiratory rate 18 /min Pfo 3 [facility] 02-06-2023 12:54-0500 SaO2% (BldA) [Mass fraction] 100 % Pfo 3 [facility] 02-06-2023 12:54-0500 Systolic blood pressure 104 mm[Hg] Pfo 3 [facility] 02-06-2023 11:37-0500 Body height 165.1 cm Pfo 3 [facility] 02-06-2023 11:37-0500 Body mass index (BMI) [Ratio] 27.46 kg/m2 Pfo 3 [facility] 02-06-2023 11:37-0500 Body temperature 98.4 [degF] Pfo 3 [facility] 02-06-2023 11:37-0500 Body weight 74.84 kg Pfo 3 [facility] Encounters Encounter Date Encounter Type Care Provider Facility Start: 05-04-2024 End: 05-04-2024 Chart abstracting Deepthi Tomas MD Work Phone: [facility] Start: 04-26-2024 End: 04-26-2024 Bamboo flowsheet Parish Courtney DO Work Phone: [facility] Start: 04-26-2024 End: 04-26-2024 Bamboo flowsheet Parish Courtney DO Work Phone: [facility] Start: 04-26-2024 End: 04-26-2024 flow sheet Parish Courtney DO Work Phone: [facility] Comment on above: Second trimester pre gnancy; 23 weeks gestation of ; Crohn's disease with complication, unspecified gastrointestinal tract location (CMS/HCC) Start: 04-26-2024 End: 04-26-2024 ambulatory PARISH COURTNEY Not Available Start: 04-23-2024 End: 04-23-2024 Orders Only Sharda Montiel MD Work Phone: [facility] Comment on above: Ulcerative colitis w ith other complication, unspecified location (CMS-HCC) (Primary Dx) Start: 04-22-2024 End: 04-22-2024 Orders Only [facility]iel MD [facility] Comment on above: Crohn's disease of c olon with other complication (CMS-HCC) (Primary Dx) Start: 04-21-2024 End: 04-21-2024 ambulatory YAQUELIN HORNE Not Available Start: 04-20-2024 End: 04-20-2024 Orders Only Sharda Montiel MD Work Phone: [facility] Start: 04-19-2024 End: 04-21-2024 Telephone encounter Sharda Montiel MD Work Phone: [facility] Start: 04-19-2024 End: 04-19-2024 ambulatory HILARY A [facility] Start: 04-19-2024 End: 04-19-2024 Office outpatient visit 40 minutes Sharda Montiel MD Work Phone: [facility] Comment on above: Thrombocytopenia (CM S-HCC) (Primary Dx); Crohn's disease with complication, unspecified gastrointestinal tract location (CMS-HCC) Start: 04-19-2024 End: 04-19-2024 ambulatory [facility] 1 [facility] Comment on [...] Department Unsolicited Start: 03-08-2024 End: 03-08-2024 ambulatory [facility] 1 [facility] [...] Orders Only Sharda Montiel MD Work Phone: [facility] Comment on above: Therapeutic drug mon itoring (Primary Dx) Start: 01-31-2024 End: 01-31-2024 Emergency department patient visit [facility] Start: 01-26-2024 End: 01-26-2024 ambulatory [facility] Start: 01-26-2024 End: 01-26-2024 ambulatory [facility] Start: 01-23-2024 End: 01-23-2024 ambulatory YAQUELIN HORNE Not Available Start: 01-23-2024 End: 01-23-2024 Office outpatient visit 5 minutes [facility] Courtney Nurse [facility] Comment on above: GA: 11w2d Start: 01-13-2024 End: 01-13-2024 Orders Only Dominique Moya APRN-ART GILDER Work Phone: [facility] Comment on above: Iron deficiency anem ia due to chronic blood loss (Primary Dx); Iron malabsorption; Iron deficiency anemia, unspecified Start: 01-06-2024 End: 01-06-2024 Orders Only Dominique HALEY Work Phone: Al[facility] Riche[facility] Comment on above: Iron deficiency anem ia due to chronic blood loss (Primary Dx); Iron malabsorption; Iron deficiency anemia, unspecified Start: 01-03-2024 End: 01-03-2024 Emergency department patient visit HILARY Us TRACI [facility] Start: 12-17-2023 End: 12-18-2023 Telephone encounter Raf Zarco RN [facility] Start: 12-12-2023 End: 12-12-2023 ambulatory [facility] 2 [facility] Comment on above: Crohn's disease of b oth small and large intestine with intestinal obstruction (CMS-HCC) (Primary Dx) Start: 12-01-2023 End: 12-01-2023 Office outpatient visit 25 minutes Dominique Moya APRN-ART GILDER Work Phone: [facility] Comment on above: Iron deficiency (Ping hussein Dx); Crohn's disease of both small and large intestine with intestinal obstruction (CMS-HCC); Chronic fatigue; Leg cramps; Noncompliance; Iron deficiency anemia due to chronic blood loss; Iron malabsorption; Iron deficiency anemia, unspecified Start: 12-01-2023 End: 12-01-2023 ambulatory DOMINIQUE MOYA [facility] Start: 12-01-2023 End: 12-01-2023 ambulatory MJ Aguilar JUAREZ [facility] Start: 10-31-2023 End: 10-31-2023 Office outpatient visit 25 minutes Sharda Montiel MD Work Phone: [facility] Comment on above: Therapeutic drug mon itoring (Primary Dx); Crohn's disease of both small and large intestine with other complication (CMS-HCC) Start: 10-31-2023 End: 10-31-2023 ambulatory [facility] 2 [facility] Comment on above: Crohn's disease of b oth small and large intestine with intestinal obstruction (CMS-HCC) (Primary Dx) Start: 09-17-2023 End: 09-17-2023 ambulatory [facility] Start: 09-17-2023 End: 09-17-2023 Office outpatient visit 25 minutes Hilary Aviles [employer]S OFFICER-[employer] GILDER Work Phone: [facility] Comment on above: Current moderate epi sode of major depressive disorder without prior episode (CMS-HCC) (Primary Dx); Crohn's disease of both small and large intestine with intestinal obstruction (CMS-HCC) Start: 09-15-2023 End: 09-16-2023 Telephone encounter Sharda Montiel MD Work Phone: [facility] Start: 09-15-2023 End: 09-15-2023 ambulatory [facility] 3 [facility] Comment on above: Crohn's disease of b oth small and large intestine with intestinal obstruction (CMS-HCC) (Primary Dx) Start: 09-03-2023 End: 09-03-2023 Telephone encounter Hilary Aviles [employer] OFF[employer]ER-[employer] GILDER Work Phone: [facility] Start: 09-03-2023 End: 09-03-2023 ambulatory [facility] Start: 09-03-2023 End: 09-03-2023 Phys/qhp telephone evaluation 11-20 min Hilary Aviles [employer] GILDER Work Phone: [facility] Comment on above: Reactive depression (Primary Dx) Start: 08-20-2023 End: 08-20-2023 ambulatory [facility] Start: 08-20-2023 End: 08-20-2023 Office outpatient visit 25 minutes Hilary Aviles [employer] OFF[employer]ER-[employer] GILDER Work Phone: [facility] Comment on above: Anxiety (Primary Dx) Start: 08-04-2023 End: 08-04-2023 ambulatory [facility] 2 [facility] [...] [facility] Start: 04-21-2023 End: 04-21-2023 ambulatory [facility] 4 [facility] Comment on above: Crohn's disease of b oth small and large intestine with intestinal obstruction (CMS-HCC) (Primary Dx) Start: 04-14-2023 Telephone encounter Nic Aguilar [facility] Start: 03-31-2023 Telephone encounter Nic Aguilar [facility] Start: 03-19-2023 End: 03-19-2023 ambulatory [facility] Start: 02-20-2023 End: 02-20-2023 Office outpatient visit 25 minutes Lyndsey Anders MD Work Phone: [facility] Comment on above: Reactive airway dise ase with acute exacerbation, unspecified asthma severity, unspecified whether persistent (Primary Dx); Shortness of breath; COVID-19; Sinusitis, unspecified chronicity, unspecified location Start: 02-20-2023 End: 02-20-2023 ambulatory [facility] Start: 02-17-2023 End: 02-17-2023 ambulatory [facility] 3 [facility] Comment on above: Crohn's disease of b oth small and large intestine with intestinal obstruction (CMS-HCC) (Primary Dx) Start: 02-06-2023 End: 02-06-2023 ambulatory MJ PIZARRO [facility] Comment on above: Iron deficiency anem ia due to chronic blood loss (Primary Dx); Iron deficiency anemia, unspecified; Iron malabsorption Start: 04-30-2022 End: 04-30-2022 ambulatory SEBASTIAN HERRING Facility: Start: 12-03-2016 End: 12-04-2016 Ambulatory SAMARA HERNANDEZ [facility] Start: 11-19-2016 End: 11-26-2016 Ambulatory SAMARA HERNANDEZ [facility] Start: 10-29-2016 End: 10-30-2016 Ambulatory SAMARA HERNANDEZ [facility] Start: 10-01-2016 End: 10-01-2016 Ambulatory SAMARA HERNANDEZ [facility] Start: 08-29-2016 End: 08-29-2016 Ambulatory SAMARA HERNANDEZ [facility] Procedures Date Procedure Procedure Detail Performing [...] Adult depression scr eening assessment Hilary Aviles [employer]ILDER Work Phone: Start: 09-17-2023 Microscopic observat ion [Identifier] in Cervix by Cyto stain Sharda Montiel MD Work Phone: Start: 08-20-2023 Adult depression scr eening assessment Hilary Aviles [employer]ILDER Work Phone: Start: 11-23-2020 Adult depression scr eening assessment Pfo 3 Plan of Treatment Date Care Activity Detail Author Start: 09-16-2026 Screening for malign ant neoplasm of cervix Pap Smear [facility] Start: 04-19-2025 Adult BMI Screening Adult BMI Screen ing [facility] Start: 04-19-2025 Tobacco Screening Tobacco Screening [facility] Start: 01-30-2025 Adult BMI Screening Adult BMI Screen ing [facility] Start: 01-30-2025 Tobacco Screening Tobacco Screening [facility] Start: 01-02-2025 Adult BMI Screening Adult BMI Screen ing [facility] Start: 01-02-2025 Tobacco Screening Tobacco Screening [facility] Start: 12-11-2024 Adult BMI Screening Adult BMI Screen ing [facility] Start: 12-02-2024 End: 12-02-2024 Patient encounter procedure 12/02/2024 10:15 AM EDT Office Visit Ally Lovell [facility] [address] [place] [phone] Mj Pizarro MD [facility] [address] [place] [id number] [facility] Start: 10-30-2024 Adult BMI Screening Adult BMI Screen ing [facility] Start: 10-30-2024 Tobacco Screening Tobacco Screening [facility] Start: 09-16-2024 Adult BMI Screening Adult BMI Screen ing [facility] Start: 09-16-2024 Depression Screening Depression Scre ening [facility] Start: 09-16-2024 Tobacco Screening Tobacco Screening [facility] Start: 09-14-2024 Adult BMI Screening Adult BMI Screen ing [facility] Start: 09-02-2024 Tobacco Screening Tobacco Screening [facility] Start: 08-19-2024 Adult BMI Screening Adult BMI Screen ing [facility] Start: 08-19-2024 Depression Screening Depression Scre ening [facility] Start: 08-19-2024 Tobacco Screening Tobacco Screening [facility] Start: 08-03-2024 Adult BMI Screening Adult BMI Screen ing [facility] Start: 06-28-2024 End: 06-28-2024 ambulatory 06/28/2024 10:30 AM EDT Infusion [facility] [address] [phone] [facility] Start: 06-02-2024 End: 06-02-2024 Patient encounter procedure 06/02/2024 8:45 AM EDT Office Visit [facility] [address] [place] [phone] Deepthi Tomas MD [address] [place] [address] [facility] Start: 06-02-2024 End: 06-02-2024 Patient encounter procedure 06/02/2024 7:30 AM EDT Appointment [facility] [address] [place] [address] [facility] Start: 05-31-2024 End: 05-31-2024 ambulatory 05/31/2024 10:00 AM EDT Infusion [facility] [address] [facility] [place] [phone] [facility] Start: 05-24-2024 End: 05-24-2024 ambulatory 05/24/2024 10:30 AM EDT Infusion [facility] [address] [facility] [address] [place] [phone] [facility] Start: 05-12-2024 End: 05-12-2024 Patient encounter procedure 05/12/2024 2:30 PM EDT Routine [facility] [address] [place] [phone] Yaquelin Horne PA [address] [place], [place] [id number] [facility] Start: 04-26-2024 End: 04-26-2024 Patient encounter procedure 04/26/2024 10:10 AM EDT Office Visit [facility] [address] [place] [address] Parish Valdez DO [address] [place], [place] [id number] Arrived [facility] Comment on above: Arrived Start: 04-21-2024 End: 04-21-2024 Professional / ancillary services management 04/21/2024 11:00 AM EDT Ancillary Procedure [facility] [address] [place] [phone] [facility] Start: 04-20-2024 Adult BMI Screening Adult BMI Screen ing [facility] Start: 04-19-2024 End: 04-19-2025 Cyanocobalamin vitamin b-12 Vitamin B12 Lab Routine Crohn's disease with complication, unspecified gastrointestinal tract location ([facility]-HCC) Expected: 04/19/2024, Expires: 04/19/2025 [facility] Comment on above: Expected: 04/19/2024 , Expires: 04/19/2025 Start: 04-19-2024 End: 04-19-2024 ambulatory 04/19/2024 10:30 AM EDT Infusion [facility] [address] [facility] [address] [place] [address] [facility] Start: 04-19-2024 End: [...] mellitus screening Expected: 04/14/2024 (Approximate), Expires: 04/14/2025 [facility] Comment on above: Expected: 04/14/2024 (Approximate), Expires: 04/14/2025 Start: 04-14-2024 End: 04-14-2024 Patient encounter procedure 04/14/2024 1:40 PM EST Routine [facility] [address] [place] [phone] Parish Valdez, DO [address] [facility] [place] [address] [facility] Start: 03-17-2024 End: 09-14-2024 [...] Routine [facility] [address] [place] [phone] Yaquelin Horne PA [address] [place] [address] [facility] Start: 03-08-2024 End: 03-08-2024 ambulatory 03/08/2024 10:00 AM EST Infusion [facility] [address] [facility] [place] [address] [facility] Start: 02-21-2024 Adult BMI Screening Adult BMI Screen ing [facility] Start: 02-21-2024 Tobacco Screening Tobacco Screening [facility] Start: 02-18-2024 Adult BMI Screening Adult BMI Screen ing [facility] Start: 02-18-2024 End: 02-18-2024 Patient encounter procedure 02/18/2024 11:30 AM EST Routine [facility] [address] [place] [phone] Parish Valdez, [address] [place] [address] [facility] Start: 02-07-2024 Tobacco Screening Tobacco Screening [facility] Start: 01-31-2024 Adult BMI Screening Adult BMI Screen ing [facility] Start: 01-31-2024 Tobacco Screening Tobacco Screening [facility] Start: 01-26-2024 End: 01-26-2024 ambulatory 01/26/2024 10:00 AM EST Infusion [facility] [address] [place] [phone] [facility] Start: 01-23-2024 End: 01-22-2025 ABO/Rh ABO/Rh Lab Routine Missed menses , unspecified gestational age Expected: 01/23/2024 (Approximate), Expires: 01/22/2025 [facility] Comment on above: Expected: 01/23/2024 (Approximate), Expires: 01/22/2025 Start: 01-23-2024 End: 01-22-2025 Blood type and Indirect antibody screen panel - Blood Type and screen Lab Routine Missed menses , unspecified gestational age Expected: 01/23/2024 (Approximate), Expires: 01/22/2025 [facility] Work Phone: Comment on above: Expected: 01/23/2024 (Approximate), Expires: 01/22/2025 Start: 01-23-2024 End: 01-22-2025 Drugs of abuse panel - Urine by Screen method Rapid drug screen, urine Lab Routine , unspecified gestational age Encounter for supervision of normal first in first trimester Expected: 01/23/2024 (Approximate), Expires: 01/22/2025 [facility] Comment on above: Expected: 01/23/2024 (Approximate), Expires: 01/22/2025 Start: 01-23-2024 End: 01-22-2025 US Pelvis transvaginal US OB transvaginal Imaging Routine Missed menses Expected: 01/23/2024 (Approximate), Expires: 01/22/2025 [facility] Comment on above: Expected: 01/23/2024 (Approximate), Expires: 01/22/2025 Start: 12-22-2023 End: 12-22-2023 Patient encounter procedure 12/22/2023 3:40 PM EST Office Visit [facility] [address] [place] [address] [place] [phone] Hilary Aviles, GRANT[employer] OFFICER-ART GILDER [address] [facility] [address], Matthew [address] [place], [place] [phone] [facility] Start: 12-12-2023 End: 12-12-2023 ambulatory 12/12/2023 10:00 AM EDT Infusion [facility] [address] [facility] [address] [place] [phone] [facility] Start: 11-20-2023 End: 11-20-2023 Patient encounter procedure 11/20/2023 1:00 PM EDT Office Visit [facility] [address] [place] [address] [place] [address] [place] [address] [address] [place] [address] [facility] Start: 11-19-2023 End: 11-19-2023 Patient encounter procedure 11/19/2023 9:40 AM EDT [facility] [address] [place] [place] [address] [phone] Hilary Aviles, [employer] OFF[employer]ER-ART GILDER [address] [facility] B, [place], [place] [phone] [facility] Start: 10-31-2023 End: 10-30-2024 C-reactive protein C-reactive protein Lab Routine Crohn's disease of both small and large intestine with other complication ([facility]) Expected: 10/31/2023, Expires: 10/30/2024 [facility] Comment on above: Expected: 10/31/2023 , Expires: 10/30/2024 Start: 10-31-2023 End: 10-30-2024 Cyanocobalamin vitamin b-12 Vitamin B12 Lab Routine Crohn's disease of both small and large intestine with other complication ([facility]) Expected: 10/31/2023, Expires: 10/30/2024 [facility] Comment on above: Expected: 10/31/2023 , Expires: 10/30/2024 Start: 10-31-2023 End: 10-30-2024 Erythrocyte sedimentation rate Erythrocyte Sedimentation Rate (ESR) Lab Routine Crohn's disease of both small and large intestine with other complication ([facility]) Expected: 10/31/2023, Expires: 10/30/2024 [facility] Comment on above: Expected: 10/31/2023 , Expires: 10/30/2024 Start: 10-31-2023 End: 10-31-2023 ambulatory 10/31/2023 9:30 AM EDT Infusion [facility] [address] [place] [address] [address] [place] [address] [facility] Start: 10-31-2023 End: 10-31-2023 Patient encounter procedure 10/31/2023 9:00 AM EDT Office Visit [facility] [address] [place] [address] [address] [place] [phone] Sharda Montiel MD [address] [facility], [address] [place] [address] [facility] Start: 10-27-2023 End: 10-27-2023 ambulatory 10/27/2023 12:00 PM EDT Infusion [facility] [address] [place] [address] [address] [place] [phone] [facility] Start: 10-27-2023 End: 10-27-2023 Patient encounter procedure 10/27/2023 11:30 AM EDT Office Visit [facility] [address] [place] [address] [address] [place] [address] Sharda Montiel MD [address] [facility], [address] [place] [address] [facility] Start: 10-12-2023 Influenza vaccination Influenza Vacc ine [facility] Start: 09-17-2023 End: 09-17-2023 Patient encounter procedure 09/17/2023 9:20 AM EDT Office Visit [facility] [address] [place] [phone] Hilary Aviles, [employer] OFFICER-[employer] GILDER [address] [facility] [address], [place] [facility] [place] [address] [facility] Start: 09-15-2023 End: 09-15-2023 ambulatory 09/15/2023 10:00 AM EDT Infusion [facility] [address] [place], [place] [address], [place] [address] [facility] Start: 06-17-2023 End: 06-17-2023 Patient encounter procedure 06/17/2023 11:15 AM EDT Office Visit [facility] [address] [place], [place] [address], [place] [address] Meaghan King PA-C [address] [place] [address] [facility] Start: 06-10-2023 End: 06-10-2023 ambulatory 06/10/2023 10:30 AM EDT Infusion [facility] [address] [place], [place] [address], [place] [address] [facility] Start: 04-21-2023 End: 04-21-2023 ambulatory 04/21/2023 10:00 AM EDT Infusion [facility] [address] [place], [place] [address], [place] [address] [facility] Start: 03-31-2023 End: 03-31-2023 ambulatory 03/31/2023 10:00 AM EST Infusion [facility] [address] [place], [place] [address], [place] [address] [facility] Start: 02-17-2023 End: 02-17-2023 ambulatory 02/17/2023 11:30 AM EST Infusion [facility] [address] [place] [address] [facility] Start: 10-11-2022 Influenza vaccination Influenza Vacc ine [facility] Start: 11-23-2021 Depression Screening Depression Scre ening [facility] Start: 2010 Screening for malign ant neoplasm of cervix Pap Smear [facility] Start: 2008 DTaP,Tdap and Td Vaccines (1 - Tdap) DTaP,Tdap and Td Vaccines (1 - Tdap) [facility] Start: 11-11-2007 Adult BMI Follow Up Plan Adult BMI F ollow Up Plan [facility] Bacteria identified in Urine by Culture Urine culture Microbiology Routine Missed menses Ordered: 01/23/2024 [facility] Comment on above: Ordered: 01/23/2024 End: 10-30-2024 Basic metabolic 2000 panel - Serum or Plasma Basic Metabolic Panel Lab Routine Therapeutic drug monitoring Crohn's disease of both small and large intestine with other complication ([facility]) 1 Occurrences starting 10/31/2023 until 10/30/2024 [facility] Comment on above: 1 Occurrences starti ng 10/31/2023 until 10/30/2024 End: 10-30-2024 Calprotectin, F Calprotectin, F Lab Routine Crohn's disease of both small and large intestine with other complication ([facility]) 1 Occurrences starting 10/31/2023 until 10/30/2024 [employer] Work Phone: Comment on above: 1 Occurrences starti ng 10/31/2023 until 10/30/2024 End: 04-22-2025 Calprotectin, F Calprotectin, F Lab Routine Crohn's disease of colon with other complication ([facility]) 1 Occurrences starting 04/22/2024 until 04/22/2025 [employer] Work Phone: Comment on above: 1 Occurrences starti ng 04/22/2024 until 04/22/2025 End: 04-23-2025 Calprotectin, F Calprotectin, F Lab Routine Ulcerative colitis with other complication, unspecified location ([facility]) 1 Occurrences starting 04/23/2024 until 04/23/2025 [employer] Work Phone: Comment on above: 1 Occurrences starti ng 04/23/2024 until 04/23/2025 End: 10-30-2024 CBC panel - Blood by Automated count CBC without diff Lab Routine Therapeutic drug monitoring 1 Occurrences starting 10/31/2023 until 10/30/2024 [facility] Comment on above: 1 Occurrences starti ng 10/31/2023 until 10/30/2024 CBC W Auto Different ial panel - Blood CBC and differential Lab Routine Missed menses , unspecified gestational age Ordered: 01/23/2024 [facility] Comment on above: Ordered: 01/23/2024 End: 04-19-2025 CBC W Auto Differential panel - Blood CBC auto differential Lab Routine Thrombocytopenia ([facility]) 1 Occurrences starting 04/19/2024 until 04/19/2025 [employer] Work Phone: Comment on above: 1 Occurrences starti ng 04/19/2024 until 04/19/2025 CHLAMYDIA TRACHOMATI S (GENITO/STI) CHLAMYDIA TRACHOMATIS (GENITO/STI) Lab Routine STD exposure Ordered: 03/17/2024 [facility] Comment on above: Ordered: 03/17/2024 Hemoglobin A1c/Hemoglobin.total in Blood Hemoglobin A1c Lab Routine Missed menses , unspecified gestational age Ordered: 01/23/2024 [facility] Comment on above: Ordered: 01/23/2024 Hepatitis B virus surface Ag [Presence] in Serum or Plasma by Immunoassay Hepatitis B surface antigen Lab Routine Missed menses , unspecified gestational age Ordered: 01/23/2024 [facility] Comment on above: Ordered: 01/23/2024 Hepatitis C virus Ab [Presence] in Serum or Plasma by Immunoassay Hepatitis C antibody Lab Routine Missed menses , unspecified gestational age Ordered: 01/23/2024 [facility] Comment on above: Ordered: 01/23/2024 HIV-1/HIV-2 antigen/antibody combination immunoassay HIV-1 and HIV-2 antibodies Lab Routine Missed menses , unspecified gestational age Ordered: 01/23/2024 [facility] Comment on above: Ordered: 01/23/2024 End: 10-30-2024 Liver panel Liver panel Lab Routine Therapeutic drug monitoring Crohn's disease of both small and large intestine with other complication ([facility]) 1 Occurrences starting 10/31/2023 until 10/30/2024 [facility] Comment on above: 1 Occurrences starti ng 10/31/2023 until 10/30/2024 End: 06-08-2024 Mycobacterium TB by [employer]ifer[employer] Gold Mycobacterium TB by [employer]ifer[employer] Gold Lab Routine Crohn's disease of both small and large intestine with intestinal obstruction ([facility]) 1 Occurrences starting 06/09/2023 until 06/08/2024 [employer] Work Phone: Comment on above: 1 Occurrences starti ng 06/09/2023 until 06/08/2024 Neisseria gonorrhoea e DNA [Presence] in Unspecified specimen by ROBERT with probe detection Neisseria gonorrhea DNA probe, direct Lab Routine STD exposure Ordered: 03/17/2024 [facility] Comment on above: Ordered: 03/17/2024 End: 02-07-2023 Oxygen Therapy - Maintain SpO2: 90% or greater; *SALESPERSON PARTS Guidelines for O2: Yes; Document: file://[employer]or g/epic/EPIC_Reference/Or ders/Respiratory%20Care% 20Guidelines/CPG%20Oxyge n%[id number].pdf Oxygen Therapy - Maintain SpO2: 90% or greater; *SALESPERSON PARTS Guidelines for O2: Yes; Document: file://[employer]org /epic/EPIC_Reference/Orde rs/Respiratory%20Care%20G uidelines/CPG%20Oxygen%20 2016.pdf Respiratory Care STAT Iron deficiency anemia due to chronic blood loss Iron deficiency anemia, unspecified Iron malabsorption As Needed for 1 Occurrences starting 02/06/2023 until 02/07/2023 [facility] [employer] Work Phone: Comment on above: As [...] persistent 1 Occurrences starting 02/20/2023 until 02/21/2024 [employer] Work Phone: Comment on above: 1 Occurrences starti ng 02/20/2023 until 02/21/2024 Reagin Ab [Presence] in Serum by RPR RPR Lab Routine Missed menses , unspecified gestational age Ordered: 01/23/2024 [facility] [employer] Comment on above: Ordered: 01/23/2024 Rubella antibody, IgG Rubella an tibody, IgG Lab Routine Missed menses , unspecified gestational age Ordered: 01/23/2024 [employer] Comment on above: Ordered: 01/23/2024 SURESWAB(R) ADVANCED VAGINITIS PLUS, TMA SURESWAB(R) ADVANCED VAGINITIS PLUS, TMA Pathology and Cytology Routine Vaginal discharge Ordered: 03/17/2024 [employer] Work Phone: Comment on above: Ordered: 03/17/2024 End: 02-02-2025 Thiopurine Metabs Thiopurine Metabs Lab Routine Therapeutic drug monitoring 1 Occurrences starting 02/03/2024 until 02/02/2025 [employer] Work Phone: Comment on above: 1 Occurrences starti ng 02/03/2024 until 02/02/2025 End: 10-30-2024 Thiopurine Metabs Thiopurine Metabs Lab Routine Therapeutic drug monitoring 1 Occurrences starting 10/31/2023 until 10/30/2024 [employer] Comment on above: 1 Occurrences starti ng 10/31/2023 until 10/30/2024 End: 10-30-2024 Vitamin D 25 hydroxy Vitamin D 25 hydroxy Lab Routine Crohn's disease of both small and large intestine with other complication ([facility]) 1 Occurrences starting 10/31/2023 until 10/30/2024 [employer] Comment on above: 1 Occurrences starti ng 10/31/2023 until 10/30/2024 End: 04-19-2025 Vitamin D 25 hydroxy Vitamin D 25 hydroxy Lab Routine Crohn's disease with complication, unspecified gastrointestinal tract location ([facility]) 1 Occurrences starting 04/19/2024 until 04/19/2025 [facility] Comment on above: 1 Occurrences starti ng 04/19/2024 until 04/19/2025 Payers Date Payer Category Payer Medicaid [employer] MEDICAID [facility] MEDICAID [id number] 2022-Present [address] [place] [address] [id number] 2022 Medicaid [id number] 2021 Commercial Managed C are - POS [employer] [id number] 2021 Managed Care HMO (unspecified) [employer] [id number] 2021 Private Health Insurance [employer]ET[employer] AETNA POS II [id number] 2021-Present [phone] [address] [place] [address] [id number]. 2.7.3.072478.315 1989 Unknown [id number] 2.16.840.1.905862.3.579. 2.593 1989 Unknown [id number] 2.16.840.1.824065.3.579. 2.1286 1989 Unknown [id number] 2.16.840.1.825522.3.579. 2.1286 1989 Unknown [id number] 2.16.840.1.699721.3.579. 2.1286 1989 Unknown [id number] 2.16.840.1.415460.3.579. 2.1286 1989 Unknown [id number] 2.16.840.1.704601.3.579. 2.1286 1989 Unknown [id number] 2.16.840.1.983122.3.579. 2.1286 1989 Unknown [id number] 2.16.840.1.226720.3.579. 2.1286 1989 Unknown [id number] 2.16.840.1.512789.3.579. 2.1286 1989 Unknown [id number] 2.16.840.1.345958.3.579. 2.1286 1989 Unknown [id number] 2.16.840.1.515560.3.579. 2.1286 1989 Unknown [id number] 2.16.840.1.267397.3.579. 2.1286 1989 Unknown [id number] 2.16.840.1.647690.3.579. 2.1286 1989 Unknown [id number] 2.16.840.1.248792.3.579. 2.1286 1989 Unknown [id number] 2.16.840.1.158209.3.579. 2.1286 1989 Unknown [id number] 2.16.840.1.833993.3.579. 2.1286 1989 Unknown [id number] 2.16.840.1.076007.3.579. 2.1286 1989 Unknown [id number] 2.16.840.1.430156.3.579. 2.1286 1989 Unknown [id number] 2.16.840.1.677558.3.579. 2.1286 1989 Unknown [id number] 2.16.840.1.412425.3.579. 2.1286 1989 Unknown [id number] 2.16.840.1.675991.3.579. 2.1286 1989 Unknown [id number] 2.16.840.1.348611.3.579. 2.1286 1989 Unknown [id number] 2.16.840.1.097729.3.579. 2.1286 1989 Unknown [id number] 2.16.840.1.400457.3.579. 2.1259 1989 Unknown [id number] 2.16.840.1.296193.3.579. 2.9 1989 Unknown [id number] 2.16.840.1.998546.3.579. 2.9 1989 Unknown [id number] 2.16.840.1.015257.3.579. 2.9 1989 Unknown [id number] 2.16.840.1.485118.3.579. 2.1259 1989 Unknown [id number] 2.16.840.1.244859.3.579. 2.9 1989 Unknown [id number] 2.16.840.1.854953.3.579. 2.1259 1959 Private Health Insurance [id number] Social History Date Type Detail Facility Start: 12-27-2021 End: 10-09-2022 Tobacco smoking status [facility] Never smoked tobacco [facility] Start: 12-27-2021 End: 10-09-2022 Tobacco use and exposure Smokeless tobacco non-user [facility] Start: 01-23-2024 End: 03-17-2024 Alcoholic beverage intake Lifetime non-drinker (finding) [facility] Start: 02-29-2020 End: 09-15-2023 History of Social function [facility] Start: 02-29-2020 End: 09-15-2023 Tobacco use panel [facility] Start: 11-19-2023 [facility] Start: 1990 Sex assigned at Female [facility] Start: 09-12-2022 Gender identity Identifies as female gender (finding) [facility] Start: 09-12-2022 Sexual orientation Heterosexual (finding) [facility] Start: 01-31-2024 End: 05-04-2024 Alcoholic beverage intake Current non-drinker of alcohol (finding) [facility] Adolescent depressio n screening assessment 15 [facility] Start: 1990 Sex assigned at Not on file [facility] Start: 09-13-2014 Sex Female (finding) [facility] Goals Date Patient Goal Desired Activity /State [...] (FOLVITE) 1,000 mcg, Oral, Every morning HYDROcodone-acetaminophen ([place]) 5-325 MG tablet 1 tablet, Oral, Every [...] nursing note reviewed. Exam conducted with a blood bank laboratory technician present. Vitals: Estimated body mass index is [...] disease with complication, unspecified gastrointestinal tract location ([facility]) K50.919 Return OB: Patient presents today for [...] [facility] not yet have a scheduled appointment but will reach back out to them to schedule related to non visualized stomach during anatomy scan. Documented by Kimi Simmons NP on behalf of: Parish Valdez DO documented in this encounter [facility] 04-19-2024 Miscellaneous Notes Biologic team, please [...] OV note and fax it to her company miner blasting, Dr. Parish Valdez DO at [facility]. Thank you. Faxed to [phone] Zymfentra 120mg/ml PA was sent to plan via [facility] [employer] number: [id number] documented in this encounter [facility] 04-19-2024 Telephone encounter Note Biologic team, please [...] OV note and fax it to her company miner blasting, Dr. Parish Valdez, at [facility]. Thank you. [facility] 04-19-2024 Telephone encounter Note Faxed to [phone] [facility] 04-19-2024 Telephone encounter Note Zymfentra 120mg/ml PA was sent to plan via [facility] [employer] number: [id number] [facility] 04-19-2024 History of Present illness Narrative Infusion start time: 11:10 am Patient here for her [facility] infusion. Patient denies any recent infections or on antibiotics, open wounds, recent/future surgery, vaccinations or insurance changes. 10:50 am IV started with 22g needle to left AC by JAD Arroyo x1 attempt. Patient tolerated well. Avsola x 4 vials Lot# [id number] Exp- 09/10/2027 Time out performed prior to medication administration. Name, , medication(s) verified 1310 patient infusion complete. IV flushed with normal saline. 1313 IV discontinued, catheter intact, vitals WNL. Patient tolerated infusion well documented in this encounter [facility] 04-19-2024 History of Present illness Narrative [facility] Follow Up [...] obstruction (CMS-HCC) 10/17/2017 Chronic diarrhea Colon stricture ([facility]) 04/02/2018 Crohn's colitis ([facility]) Crohn's disease ([facility]) Crohn's disease of both small and large intestine with intestinal obstruction ([facility]) 03/03/2018 Current chronic use of systemic steroids 03/03/2018 Depression Diarrhea 10/17/2017 Added automatically from request for surgery [id number] Difficulty sleeping 01/13/2019 Gall stones History of [...] 10/21/2017 Performed by Sharda Montiel MD at [facility] COLONOSCOPY w/ Bx's & polypectomy N/A 10/08/2021 Performed by Sharda Montiel MD at [facility] EGD N/A 04/02/2018 Performed by Darshana Rae MD at [facility] LAPAROSCOPIC ILEOCECECTOMY, TAKE DOWN OF ILEODUDENAL FISTULA, DRAINAGE OF RETROPERITONEAL ABSCESS, OMENTAL PEDICLE FLAP N/A 04/02/2018 Performed by Jonathan Bautista MD at [facility] SOCIAL HISTORY: Social History Tobacco Use [...] VITAMIN B12: Lab Results Component Value Date [id number] 01/26/2024 FOLATE: Lab Results Component Value [...] a hysterectomy has been advised by her bpm developer, but that she was not ready to proceed. 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 [address] units q.week x8 and then back to [...] findings of the ongoing PIANO study, The Harris Consensus Statements for the Management of Inflammatory Bowel Disease in , and the clinical care pathway released by the AGA. - AGA clinical practice update on -related gastrointestinal and liver disease: expert review (Gastroenterology. 2023;167(5):3832-7200). - Johnathan Farr, Rey C, Ama N, et al. Inflammatory bowel disease in clinical care pathway: a report from the martiniquais gastroenterological association [facility] project working group. Gastroenterology. 2019;156(5):8209-7696. - Johnathan Farr, Yady BROWN, Lobito CD. [...] and strongly recommended annual f/u with a repacker and regular use of skin protection -- [...] procedures Referring and communicating with other health care assistant (not separately reported) Documenting clinical information in [...] for your understanding. Camila Montiel MD, MPH [facility] [place] [address] PH: [phone] Juan Luis was seen today for follow-up. Diagnoses and all orders for this visit: Thrombocytopenia ([facility]) - CBC auto differential; Future Crohn's disease with complication, unspecified gastrointestinal tract location ([facility]) - Vitamin D 25 hydroxy; Future - Vitamin B12; Future documented in this encounter [facility] 04-19-2024 Instructions Sharda Montiel MD - 04/19/2024 10:00 AM EDT Labs - from today, 02/02/25, and 01/27/25 I recommend hepatitis A vaccines with your PCP, the health department, or any pharmacy; this is typically a series of 2 injections 3. supervisor production managing high dose vitamin D from the pharmacy Preventative Health Maintenance for Crohn's and ulcerative colitis -- Skin cancer prevention: I recommend annual follow up with a repacker and regular use of skin protection given the increased risk of skin cancer, especially in patients on immunomodulator (Imuran / azathioprine / 6MP) or biologic medications (Remicade, Humira, Enyvio) -- Cervical cancer prevention: I recommend annual follow up with your company miner blasting doctor with annual pap smears -- Tobacco [...] would be interested in meeting with a suit maker please let me or your family doctor [...] the role of diet in IBD: [email or web address] rg/client_ed.cfm?mdm_client_ed_id =[email or web address] documented in this encounter [facility] ([place]) 04-14-2024 History of Present illness Narrative Reason [...] nursing note reviewed. Exam conducted with a blood bank laboratory technician present. Vitals: Estimated body mass index is [...] Parish Valdez DO documented in this encounter [facility] 03-17-2024 History of Present illness Narrative [...] obtained without difficulty and patient was given [facility] order to have obtained. Orders Placed This Encounter Procedures US OB 14+ weeks anatomy scan CHLAMYDIA TRACHOMATIS (GENITO/STI) Neisseria gonorrhea DNA probe, direct Alpha fetoprotein, maternal Follow Up: Patient is to return to our office in 4 weeks for routine OB appointment Documented by SIMI Frazier on behalf of: SIMI Frazier documented in this encounter [facility] 03-08-2024 History of Present illness Narrative Infusion start time: 1040 Patient here for Avsola infusion. Patient denies any recent infections or on antibiotics, open wounds, recent/future surgery, vaccinations or insurance changes. IV started with 22g needle to left forearm by Yaquelin Barba RN x1 attempt. Patient tolerated well. Avsola Lot# [id number] 2vials Exp- 09/10/2027 [id number] 2 vials Exp08/10/2027 Time out performed prior to medication administration. Name, , medication(s) verified 10:40 am Time out performed with Yaquelin STREET. Avsola to be mixed and administered to patient per current treatment plan orders 1240 patient infusion complete. IV flushed with 10 ml normal saline. IV discontinued, catheter intact, vitals WNL. Patient tolerated infusion well documented in this encounter [facility] 02-18-2024 History of Present illness Narrative Reason [...] nursing note reviewed. Exam conducted with a blood bank laboratory technician present. Vitals: Estimated body mass index is [...] or undercooked meat, and stay away from [facility]. Patient has been consulted regarding any [...] Parish Valdez DO documented in this encounter [facility] 01-23-2024 History of Present illness Narrative [...] or undercooked meat, and stay away from [facility]. Patient has also been advised to [...] Veronica Klein LPN documented in this encounter [facility] 12-17-[address] Montiel, Patient [...] send a letter to the family doctor/PCP, Emergency Room Clerk, and book mender advising against the use of live vaccines for the 1st 6 months of the baby's life and to monitor the baby closely for any signs of infection. Please send her the following as well: [email or web address] [email or web address]/blog/bpbfk-zinro-nssgzo-ho ez-jik-uocrozn-xt-etbirwymbrr-kos -jqcebni-bwl-umni I recommend an OV w me in 02/2024 or 03/2024 Please disregard notes below. Summary These recommendations are in accordance with the findings of the ongoing PIANO study, The Harris Consensus Statements for the Management of Inflammatory [...] clinical care pathway: a report from the [employer] [employer] [facility] project working group. Gastroenterology. 2019;156(5):7461-0881. Spoke with patient regarding recommendations, sent via Easy Vino. Will call patient back when March schedule is out, she needs Mondays. documented in this encounter [facility] ([place]) 12-17-[address] Montiel, Patient called stating she took a urine test this past Friday and it was positive. She receives Inflectra 400 mg every 6 weeks for her Crohn's. She also takes Imuran 150 mg po daily. Ilesha is inquiring if she can continue taking her Imuran and Inflectra infusions? Please advise, thank you [facility] 12-17-2023 Telephone encounter Note Please let her [...] send a letter to the family doctor/PCP, Emergency Room Clerk, and book mender advising against the use of live vaccines for the 1st 6 months of the baby's life and to monitor the baby closely for any signs of infection. Please send her the following as well: [email or web address] [email or web address]/blog/xctda-yjloz-leotds-ho mz-jet-wqfqbfv-gn-rtqplpgebqg-gwh -afsdggs-bnk-jyzp I recommend an OV w me in 02/2024 or 03/2024 Please disregard notes below. Summary These recommendations are in accordance with the findings of the ongoing PIANO study, The Harris Consensus Statements for the Management of Inflammatory [...] clinical care pathway: a report from the [employer] [employer] [facility] project working group. Gastroenterology. 2019;156(5):5870-9500. [employer] 12-17-2023 Telephone encounter Note Spoke with patient regarding recommendations, sent via Easy Vino. Will call patient back when March schedule is out, she needs Mondays. [employer] 12-12-2023 History of Present illness Narrative Infusion start time: 10:50 am Patient here for Inflectra infusion. Patient denies any recent infections or on antibiotics, open wounds, recent/future surgery, vaccinations or insurance changes. 10:30 am IV started with 22g needle to right hand by JAD Arroyo x1 attempt. Patient tolerated well. Inflectra x 4 vials Lot# [id number] Exp- 04/09/2028 Time out performed prior to medication administration. Name, , medication(s) verified 11:50 am patient infusion complete. IV flushed with 10 ml normal saline. IV discontinued, catheter intact, vitals WNL. Patient tolerated infusion well documented in this encounter [employer] 12-01-2023 History of Present illness Narrative Images from the original note were not included. [facility] [id number] 12/01/2023 Chief Complaint Patient presents with [...] small and large intestine with intestinal obstruction ([facility]) Other Visit Diagnoses Iron deficiency - Primary [...] procedures Referring and communicating with other health care assistant (not separately reported) Documenting clinical information in the electronic or other health record Independently interpreting results (not separately reported) and communicating results to the patient/family/caregiver Care coordination (not separately reported) ---- Please note that portions of this note may have been generated using voice recognition LaunchHear dictation software. Although every effort was made to ensure the accuracy of any automated transcriptions, some errors may have occurred. TERA Leyva 12/01/23 1502 [facility] Instructions TERA Leyva - 12/01/2023 2:30 PM EDT Pending labs If iron is low, will order Injectafer IV If iron is low, will repeat labs in 3 months CBC-d iron panel ferritin If iron is normal, just follow up yearly as below Follow up yearly with labs same as above [facility] History of Present illness Narrative IV Infusion start time: 944. Patient here for Inflectra infusion. Patient denies any recent infections or on antibiotics, open wounds, recent/future surgery, vaccinations or insurance changes. IV started with 22g needle to left hand by JAD Arroyo x1 attempt. Patient tolerated well. Inflectra x 4 vials Lot# [id number] Exp- [id number] Time out performed prior to medication administration. Name, , medication(s) verified 11:13 am patient infusion complete. IV discontinued, catheter intact, vitals WNL. Patient tolerated infusion well [facility] 10-31-2023 History of Present illness Narrative [facility] Follow Up Visit CHIEF COMPLAINT: [...] 10/17/2017 Added automatically from request for surgery [id number] Difficulty sleeping 01/13/2019 Gall stones History of [...] 10/21/2017 Performed by Sharda Montiel MD at [facility] COLONOSCOPY w/ Bx's & polypectomy N/A 10/08/2021 Performed by Sharda Montiel MD at [facility] EGD N/A 04/02/2018 Performed by Darshana Rae MD at [facility] LAPAROSCOPIC ILEOCECECTOMY, TAKE DOWN OF ILEODUDENAL FISTULA, DRAINAGE OF RETROPERITONEAL ABSCESS, OMENTAL PEDICLE FLAP N/A 04/02/2018 Performed by Jonathan Bautista MD at [facility] SOCIAL HISTORY: Social History Tobacco Use [...] VITAMIN B12: Lab Results Component Value Date [id number] 1,378 (H) 08/02/2021 FOLATE: Lab Results Component [...] a hysterectomy has been advised by her bpm developer, but that she was not ready to proceed. 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 [place] [address] units q.week x8 and then back to [...] and strongly recommended annual f/u with a repacker and regular use of skin protection -- [...] procedures Referring and communicating with other health care assistant (not separately reported) Documenting clinical information in [...] for your understanding. Camila Montiel MD, MPH [facility] [place] [address] PH: [phone] Juan Luis was seen today for follow-up. [...] in the morning. 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 She is currently at [facility]. She is in a vegetative state. [...] of major depressive disorder without prior episode ([facility]) - citalopram (CeleXA) 20 mg tablet; Take 1.5 tablets (30 mg total) by mouth in the morning. Crohn's disease of both small and large intestine with intestinal obstruction ([facility]) TERA Church 09/17/23 1443 documented in this encounter [facility] 09-15-2023 Miscellaneous Notes Refill infusion orders received; approved for now. Must make 10/31/23 OV or can no longer receive infusions here until she is seen. Tried to call patient, busy signal. Sent Easy Vino message. Patient called. Updated. She verbalized understanding Thank You documented in this encounter [facility] 09-15-2023 Telephone encounter Note Refill infusion orders received; approved for now. Must make 10/31/23 OV or can no longer receive infusions here until she is seen. [facility] 09-15-2023 Telephone encounter Note Tried to call patient, busy signal. Sent Easy Vino message. [facility] 09-15-2023 Telephone encounter Note Patient called. Updated. She verbalized understanding Thank You [facility] 09-15-2023 History of Present illness Narrative IV Infusion start time: 10:30 am Patient here for Inflectra infusion. Patient denies any recent infections or on antibiotics, open wounds, recent/future surgery, vaccinations or insurance changes. IV started with 22g needle to right AC by JAD Arroyo x1 attempt. Patient tolerated well. Inflectra x 4 vials Lot# [id number] Exp- [id number] Time out performed prior to medication administration. Name, , medication(s) verified 12:10 pm patient infusion complete. IV discontinued, catheter intact, vitals WNL. Patient tolerated infusion well documented in this encounter [facility] 09-03-2023 Miscellaneous Notes Patient presented to front office medical assistant window and paid for FMLA today. FMLA faxed. documented in this encounter [facility] 09-03-2023 Telephone encounter Note Patient presented to front office medical assistant window and paid for FMLA today. FMLA faxed. [facility] 09-03-2023 History of Present illness Narrative Video Visit via Real-time Synchronous Audiovisual Provider Location: [facility] [address] [place] [id number] Patient Location: Patient's home Video Visit Consent [...] that there are some limitations compared to asjw-hg-mxjh evaluations. The patient consented to the presence [...] Church 09/03/23 1308 documented in this encounter [facility] 08-20-2023 History of Present illness Narrative Subjective [...] Church 08/20/23 1530 documented in this encounter [facility] 08-04-2023 History of Present illness Narrative IV Infusion start time: 1318. Patient here for Inflectra infusion. Patient denies any recent infections or on antibiotics, open wounds, recent/future surgery, vaccinations or insurance changes. IV started with 22g needle to left AC by JAD Arroyo x1 attempt. Patient tolerated well. Inflectra x 4 vials Lot# [id number] Exp- [id number] Time out performed prior to medication administration. [...] of info given. documented in this encounter [facility] 06-18-2023 Miscellaneous Notes Patient has missed the following appointments: 06/17/23 06/10/23 04/14/23 06/17/22 11/10/20 See other note for follow up documented in this encounter [facility] 06-18-2023 Telephone encounter Note Patient has missed the following appointments: 06/17/23 06/10/23 04/14/23 06/17/22 11/10/20 [facility] 06-18-2023 Telephone encounter Note See other note for follow up [facility] 06-10-2023 Miscellaneous Notes SANIYA Cheatham and Dr. [...] 06/10/23). No show policy letter sent via [employer] and certified mail. documented in this encounter [facility] 06-10-2023 Telephone encounter Note SANIYA Cheatham and Dr. Montiel, Patient was scheduled today for her Inflectra infusion; was a NO SHOW. She also no showed 04/14/23 Call placed to patient with no answer. Message left for patient to call office back in regards to rescheduling her infusion. [facility] 06-10-2023 Telephone encounter Note Reviewing the chart it appears she has had multiple no shows even prior to this. Please send no-show / late cancellation fee notice and remind her of the no-show policy and that we are tracking this information. If she no-shows again, she may be discharged from the practice per office policy. Thank you. [facility] 06-10-2023 Telephone encounter Note Patient called and rescheduled 06/18/23 [facility] 06-10-2023 Telephone encounter Note Chaparrita, Patient NO SHOWED for her OV yesterday and did not come to her rescheduled infusion today (she NO SHOWED 06/10/23). [facility] 06-10-2023 Telephone encounter Note No show policy letter sent via [employer] and certified mail. [facility] 04-21-2023 Miscellaneous Notes Due for OV There [...] at 10:30 am documented in this encounter [facility] 04-21-2023 Telephone encounter Note Due for OV [facility] 04-21-2023 Telephone encounter Note There is nothing available for a recheck OV , can we use a new patient slot? [facility] 04-21-2023 Telephone encounter Note Yes that's ok [facility] 04-21-2023 Telephone encounter Note Left message for patient to call and schedule. [facility] 04-21-2023 Telephone encounter Note Message left for patient to call back. [facility] 04-21-2023 Telephone encounter Note Patient is scheduled with Meaghan on June 16 at 11:15 am. Infusion is scheduled on June 09 at 10:30 am [facility] 04-21-2023 History of Present illness Narrative 1020 am Patient here for Inflectra infusion. Patient denies any recent infections, open wounds, recent/future surgery, or insurance changes . IV started with 22g needle to right hand by raf street x 1 attempt. Patient tolerated well. Inflectra x 4 vials Lot #[id number] Exp date 12/11/2027 Time out performed with Raf Delatorre RN. 400 mg of Inflectra to be mixed and administered to patient per current treatment plan orders. 1305 patient infusion complete. IV discontinued, catheter intact, vitals WNL. Patient tolerated infusion well documented in this encounter [facility] 04-14-2023 Miscellaneous Notes Patient missed the visit. RN called patient and RN rescheduled patient for 04/21/2023. documented in this encounter [facility] 04-14-2023 Telephone encounter Note Patient missed the visit. RN called patient and RN rescheduled patient for 04/21/2023. [facility] 03-31-2023 Miscellaneous Notes RN was told that patient is calling regarding her insurance. The phone call was then transferred back to the infusion room. Patient states she lost her secondary insurance and wanted to know to what the amount she will be responsible for. RN informed patient to call her insurance company to find out that information. documented in this encounter [facility] 03-31-2023 Telephone encounter Note RN was told that patient is calling regarding her insurance. The phone call was then transferred back to the infusion room. Patient states she lost her secondary insurance and wanted to know to what the amount she will be responsible for. RN informed patient to call her insurance company to find out that information. [facility] 02-20-2023 History of Present illness Narrative Images from the original note were not included. [address] [place] [id number] Patient: Juan Luis Storey Date of [...] morning. LYNDSEY ANDERS MD Family Medicine Physician [facility] 02/20/23 This note was completed with voice recognition software. The document was reviewed for errors however some may still be present. Please do not hesitate to contact/Epic msg the author to verify any questions/concerns. documented in this encounter [facility] 02-17-2023 History of Present illness Narrative 1145 Patient here for Inflectra infusion. Patient denies any recent infections, open wounds, recent/future surgery, or insurance changes . Site cleansed with alcohol. IV started with 22g needle by Yaquelin Barba RN in right hand. Patient tolerated well. Lot # [id number] Exp 07/11/27 1422 patient infusion complete. IV discontinued at 1422. Patient tolerated infusion well. documented in this encounter [facility] 02-06-2023 History of Present illness Narrative Patient [...] in stable condition. documented in this encounter [facility] Evaluation note Diagnosis Missed menses , unspecified gestational age Encounter for supervision of normal first in first trimester headache in first trimester documented in this encounter [facility] HealthcareEvaluation note* Diagnosis Therapeutic drug monitoring- Primary Encounter for therapeutic drug monitoring documented in this [facility]* Diagnosis Second trimester state, incidental 15 weeks gestation of H/O oligohydramnios in prior , currently documented in this encounter [facility] HealthcareEvaluation note* Diagnosis Crohn's disease of both small and large intestine with intestinal obstruction (CMS-HCC)- Primary documented in this encounter [facility]* Diagnosis Second trimester state, incidental 19 weeks gestation of Vaginal discharge Leukorrhea, not specified as infective STD exposure Screening, , for anatomic survey Encounter for anatomic survey documented in this encounter [facility] HealthcareEvaluation note* Diagnosis 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 deficiency anemia, unspecified Iron malabsorption Other specified intestinal malabsorption documented in this encounter [facility]* Diagnosis Crohn's disease of both small and large intestine with intestinal obstruction (CMS-HCC)- Primary documented in this encounter [facility]* Diagnosis Crohn's disease of both small and large intestine with intestinal obstruction (CMS-HCC)- Primary [facility] Diagnosis Reactive airway disease with acute exacerbation, unspecified asthma severity, unspecified whether persistent- Primary Shortness of breath COVID-19 Sinusitis, unspecified chronicity, unspecified location documented in this encounter [facility]* Diagnosis Crohn's disease of both small and large intestine with intestinal obstruction (CMS-HCC)- Primary documented in this encounter [facility]* Diagnosis Anxiety- Primary Anxiety state, unspecified documented in this encounter [facility]* Diagnosis Crohn's disease of both small and large intestine with intestinal obstruction (CMS-HCC)- Primary documented in this encounter [facility]* Diagnosis Reactive depression- Primary documented in this encounter [facility]* Diagnosis Crohn's disease of both small and large intestine with intestinal obstruction (CMS-HCC)- Primary documented in this encounter [facility]* Diagnosis Current moderate episode of major depressive disorder without prior episode (CMS-HCC)- Primary Crohn's disease of both small and large intestine with intestinal obstruction (CMS-HCC) [facility] Diagnosis Therapeutic drug monitoring- Primary Encounter for therapeutic drug monitoring Crohn's disease of both small and large intestine with other complication (CMS-HCC) documented in this encounter [facility] Diagnosis Crohn's disease of both small and large intestine with intestinal obstruction (CMS-HCC)- Primary documented in this [facility] Diagnosis Iron deficiency- Primary [...] deficiency anemia, unspecified documented in this [facility] Diagnosis Crohn's disease of both small and large intestine with intestinal obstruction (CMS-HCC)- Primary documented in this [facility] Diagnosis 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 Other specified intestinal malabsorption Iron deficiency anemia, unspecified documented in this [facility]* Diagnosis Diabetes mellitus screening Screening for diabetes mellitus Second trimester state, incidental 23 weeks gestation of documented in this encounter [facility] HealthcareEvaluation note* Diagnosis Thrombocytopenia (CMS-HCC)- Primary Unspecified thrombocytopenia Crohn's disease with complication, unspecified gastrointestinal tract location (CMS-HCC) documented in this encounter [facility] Diagnosis Crohn's disease of colon with other complication (CMS-HCC)- Primary documented in this [facility]* Diagnosis Ulcerative colitis with other complication, unspecified location (CMS-HCC)- Primary [facility] Diagnosis Second trimester state, incidental 23 weeks gestation of Crohn's disease with complication, unspecified gastrointestinal tract location (CMS/HCC) documented in this encounter [facility]InstructionsNot on filedocumented in this encounterPro[facility]ica [facility] SystemInstructionsNot on filedocumented in this encounterProMedica Health SystemInstructionsNot on filedocumented in this encounterProFire[facility] SystemInstructionsNot on filedocumented in this encounterProFirelands [facility] InstructionsNot on filedocumented in this encounterProFire[facility] InstructionsNot on filedocumented in this encounterProFirelands [facility] InstructionsNot on filedocumented in this encounterPro[facility] InstructionsNot on filedocumented in this encounterProFirelands [facility] Instructions* Attachments The following attachments cannot be sent through Care Everywhere. * Anxiety Discharge Instructions, Adult (Israeli) documented in this encounterProFire[facility] SystemInstructionsNot on file documented in this encounterProFirelands [facility] Health SystemInstructionsNot on file documented in this encounterProFirelands [facility] Health SystemInstructionsNot on file documented in this encounterProFirelands [facility] SystemInstructions* Attachments The following attachments cannot be sent through Care Everywhere. * Depression (Israeli) documented in this encounterProFire[facility] Health SystemInstructionsNot on file documented in this encounterPro[facility] SystemInstructionsNot on file documented in this [facility] Summary Purpose Family History No [...] section and content) DATE CREATED AUTHOR 08/05/2017 [facility] DATE CREATED AUTHOR AUTHOR'S ORGANIZ ATION 06/26/2022 [facility] DATE CREATED AUTHOR AUTHOR'S ORGANIZ ATION 09/19/2023 [facility] DATE CREATED AUTHOR AUTHOR'S ORGANIZ ATION 02/03/2024 [facility] DATE CREATED AUTHOR AUTHOR'S ORGANIZ ATION 04/25/2024 [facility] DATE CREATED AUTHOR AUTHOR'S ORGANIZ ATION 04/27/2024 [facility] dical Specialists EPIC Reason for Visit (unrecogniz [...] BIOSIMILAR, (AVSOLA), 10 MG INFUSION Hilary Aviles, GRANTS OFFICER-ART GILDER [address] [facility] [address], [place] [address] Phone: tel: fax: [facility] [address] [phone] Phone: tel: fax: Referral ID Status Reason Start Date Expiration Date V isits Requested Visits Authorized [id number] Authorized 01/20/2024 01/18/2025 9 9 Reason Comments Outpatient Infusion Injectafer Specialty Diagnoses / Procedures Referred By Carroll juan Referred To Contact Diagnoses Iron deficiency anemia due to chronic blood loss Iron deficiency anemia, unspecified Iron malabsorption Procedures MI INJ FERRIC CARBOXYMALTOS 1MG Mj Pizarro MD [address] [facility] [address] [place] [address] Pfo Med Onc [address] [place] [phone] Referral ID Status Reason Start Date Expiration Date V isits Requested Visits Authorized [id number] Authorized 01/24/2023 07/23/2023 2 2 Reason Comments Outpatient Infusion Inflectra Specialty Diagnoses / Procedures Referred By Contac t Referred To Contact Gastroenterology Diagnoses Crohn's disease of both small and large intestine with intestinal obstruction Inflectra 5mg/kg every 6 weeks, Auth'd for 9 visits 07.26.22-07.26.23, SA/Crohns Procedures MI INFLIXIMAB INJECTION INFUSION Hilary Aviles GRANTS OFFICER-ART GILDER [address] [facility] B, [place] [address] [phone] Referral ID Status Reason Start Date Expiration Date V isits Requested Visits Authorized [id number] Pending Review 07/26/2022 07/26/2023 9 9 Reason Comments Asthma Reason Comments Outpatient Infusion inflectra Specialty Diagnoses / Procedures Referred By Contac t Referred To Contact Gastroenterology Diagnoses Crohn's disease of both small and large intestine with intestinal obstruction Procedures MI INFLIXIMAB INJECTION Referral ID Status Reason Start Date Expiration Date V isits Requested Visits Authorized [id number] Authorized 04/01/2023 04/01/2024 9 9 Reason Comments [...] obstruction Procedures MI INFLIXIMAB INJECTION Reason Comments Outpatient Infusion Specialty Diagnoses / Procedures Referred By Contac t Referred To Contact Gastroenterology Diagnoses Crohn's disease of both small and large intestine with intestinal obstruction [place] 5mg/kg (400mg) every 6 weeks/ Auth'd 01.20.24 - 01.18.25/ visits/ [id number] Dr. Montiel NO ACCELERATED INFUSION Procedures INJECTION, INFLIXIMAB-AXXQ, BIOSIMILAR, (AVSOLA), 10 MG INFUSION Hilary Aviles, GRANTS OFFICER-ART GILDER [address], [place] [address] Phone: tel: fax: [facility] [address] [place] [phone] Phone: tel: fax: Care Teams (unrecognized sec tion and content) Travel Nurse Relationship Specialty Start Date End Date Hilary Aviles MD [address] [place] [id number] Referring Physician Nurse Practitioner 10/08/22 Travel Nurse Relationship Specialty Start Date End Date Hilary Aviles APRN-ART GILDER [address], [place] [address] PCP - General Family Medicine 01/03/24 Travel Nurse Relationship Specialty Start Date End Date Hilary Aviles MD [address] [place] [address] Referring Physician Nurse Practitioner 10/08/22 Travel Nurse Relationship Specialty Start Date End Date Hilary Aviles MD [address] [place] [phone] Referring Physician Nurse Practitioner 10/08/22 Travel Nurse Relationship Specialty Start Date End Date Hilary Aviles MD [address] [place] [address] Referring Physician Nurse Practitioner 10/08/22 Travel Nurse Relationship Specialty Start Date End Date Hilary Aviles APRN-ART GILDER [address], [place] [address] PCP - General Family Medicine 01/03/24 Travel Nurse Relationship Specialty Start Date End Date Hilary Aviles MD [address] [place] [address] [place] [address] Referring Physician Nurse Practitioner 10/08/22 Travel Nurse Relationship Specialty Start Date End Date Hilary Aviles MD [address] [place] [address] [place] [address] Referring Physician Nurse Practitioner 10/08/22 Travel Nurse Relationship Specialty Start Date End Date Hilary Aviles MD [address] [place] [address] [place] [address] Referring Physician Nurse Practitioner 10/08/22 Travel Nurse Relationship Specialty Start Date End Date Hilary Aviles GRANTS OFFICER-ART GILDER [address], [address] [facility] [place] [address] PCP - General Family Medicine 12/26/22 Travel Nurse Relationship Specialty Start Date End Date Hilary Aviles APRN-ART GILDER [address], [place] [address] PCP - General Family Medicine 12/26/22 Travel Nurse Relationship Specialty Start Date End Date Hilary Aviles GRANTS OFFICER-ART GILDER [address], [place] [address] PCP - General Family Medicine 12/26/22 Travel Nurse Relationship Specialty Start Date End Date Hilary Aviles GRANTS OFFICER-ART GILDER [address], [place] [address] PCP - General Family Medicine 12/26/22 Travel Nurse Relationship Specialty Start Date End Date [facility] [address], [place] [address] PCP - General Family Medicine 12/26/22 Travel Nurse Relationship Specialty Start Date End Date Hil[facility] [address], [place] [address] PCP - General Family Medicine 12/26/22 Travel Nurse Relationship Specialty Start Date End Date Hil[facility] [address], [place] [address] PCP - General Family Medicine 12/26/22 Travel Nurse Relationship Specialty Start Date End Date Hil[facility] [address], [place] [address] PCP - General Family Medicine 12/26/22 Travel Nurse Relationship Specialty Start Date End Date Hil[facility]iles [facility] [address], [place] [address] PCP - General Family Medicine 12/26/22 Travel Nurse Relationship Specialty Start Date End Date Hil[facility] [address], [place] [address] PCP - General Family Medicine 12/26/22 Travel Nurse Relationship Specialty Start Date End Date Hil[facility]iles [facility] [address], [place] [address] PCP - General Family Medicine 12/26/22 Travel Nurse Relationship Specialty Start Date End Date Hil[facility] [address], [place] [address] PCP - General Family Medicine 12/26/22 Travel Nurse Relationship Specialty Start Date End Date Hilayr [facility]iles [facility] [address], [place] [address] PCP - General Family Medicine 12/26/22 Travel Nurse Relationship Specialty Start Date End Date Hil[facility]iles [facility] [address], [place] [address] PCP - General Family Medicine 12/26/22 Travel Nurse Relationship Specialty Start Date End Date Hil[facility]iles [facility] [address], [place] [address] PCP - General Family Medicine 01/03/24 Travel Nurse Relationship Specialty Start Date End Date Hilary [facility]iles [facility] [address], [place] [address] PCP - General Family Medicine 01/03/24 Travel Nurse Relationship Specialty Start Date End Date Hilary Aviles MD [address] [place] [address], [place] [address] Referring Physician Nurse Practitioner 10/08/22 Travel Nurse Relationship Specialty Start Date End Date Hil[facility]iles [facility] [address], [facility] [place] [address] PCP - General Family Medicine 01/03/24 Travel Nurse Relationship Specialty Start Date End Date Hilary Aviles APRNART GILDER [address], [place] [place] [address] PCP - General Family Medicine 01/03/24 Travel Nurse Relationship Specialty Start Date End Date Hilary [facility]iles [facility] [address], [facility] [place] [address] PCP - General Family Medicine 01/03/24 Travel Nurse Relationship Specialty Start Date End Date Hilary Aviles MD [address] [place] [address], [place] [address] Referring Physician Nurse Practitioner 10/08/22 FOR RECORDS [...] BE BASED ON THE PRIMARY CLINICAL RECORDS. [facility]. provides no warranty or guarantee of the accuracy or completeness of information in this document.
--- NOTE | 2024-05-04 21:46 | ECG_ITS ---
[facility] Test Date: 2024-05-04 Pat Name: BINTA TANNER Department: Room: - Gender: Female Agency Cashier: : 1990 Requested By: [id number] Order Number: [id number] Reading MD: JEY ARAUJO M.D. Measurements Intervals Erwin Rate: 104 P: 34 MN: 160 QRS: 28 QRSD: 84 T: -10 QT: 336 QTc: 396 Interpretive Statements 1120 Sinus tachycardia 4068 Nonspecific Twave abnormality abnormal ECG No previous ECG available for comparison Electronically Signed On 05-05-2024 7:43:56 EDT by JEY ARAUJO M.D.
--- NOTE | 2024-05-04 21:48 | ED_ITS ---
HPI - Arrhythmia/Palpitations General Chief Complaint: Arrhythmia/Palpitations Stated Complaint: BP, SOB, RACING HEART Time Seen by Provider: 05/04/24 21:22 Source: patient Mode of arrival: Wheelchair Limitations: no limitations History of Present Illness HPI narrative: Patient is a 33-year-old female who presents to the emergency department at 26 weeks for ongoing and worsening shortness of breath, palpitations and a sensation of racing heart. She states she checked her blood pressure earlier today and it was 140/90. She went to [facility] to be evaluated because she stated that she was having contractions however on evaluation by labor and delivery nurses, patient reported that her shortness of breath comes and goes and feels like a contraction. She has no abdominal pain or focal medical complaints related to the at this time. She had a recent ultrasound in the last several days. She takes no medication for blood pressure at home. She states she has had ongoing shortness of breath since 18 weeks of . She has had no fevers, upper respiratory symptoms or peripheral edema. Related Data Home Medications ?Medication ?Instructions ?Recorded ?Confirmed azathioprine 50 mg tablet 150 mg PO QDAY 05/04/24 05/04/24 cholecalciferol (vitamin D3) 1,250 1,250 mcg PO QWEEK 05/04/24 05/04/24 mcg (50,000 unit) capsule folic acid 1 mg tablet 1 mg PO QAM 05/04/24 05/04/24 nitrofurantoin 100 mg PO Q12H 05/04/24 05/04/24 monohydrate/macrocrystals 100 mg capsule Allergies Allergy/AdvReac Type Severity Reaction Status Date / Time No Known Drug Allergies Allergy Verified 05/04/24 21:26 Review of Systems ROS Constitutional Denies: fever or chills Ears, nose, mouth, and throat Denies: throat pain or nasal congestion Cardiovascular Reports: palpitations; Denies: chest pain Respiratory Reports: shortness of breath and cough Gastrointestinal Denies: abdominal pain, nausea or vomiting Integumentary/Breast Denies: rash Neurological Denies: headache, numbness in extremities or weakness in extremities Hematologic/Lymphatic Denies: easy bruising or easy bleeding PFSH PFSH Social History Little interest or pleasure in doing things: not at all Feeling down, depressed, or hopeless: not at all Exam Narrative Exam Narrative: Gen.: Awake, alert, in no distress Head: Normocephalic, atraumatic ENT: Moist mucous membranes Respiratory: No respiratory distress, lungs clear bilaterally Cardio: Regular rate and rhythm Gastrointestinal: Gravid abdomen Extremities: Moves extremities equally, no pedal edema Psych: Normal mood and affect Neuro: No focal neuro deficit Skin: Warm, dry, intact Constitutional Vital Signs, click to edit/add: Last Vital Signs Temp 99 F 05/04/24 21:27 Pulse 96 H 05/04/24 22:31 Resp 26 H 05/04/24 22:31 BP 119/81 05/04/24 22:31 Pulse Ox 100 05/04/24 22:31 O2 Del Method Room Air 05/04/24 21:27 Course Vital Signs Vital signs: Vital Signs Temperature 99 F 05/04/24 21:27 Pulse Rate 96 H 05/04/24 21:27 Respiratory Rate 24 H 05/04/24 21:27 Blood Pressure 134/91 05/04/24 21:27 Pulse Oximetry 100 05/04/24 21:27 Oxygen Delivery Method Room Air 05/04/24 21:27 Temperature 99 F 05/04/24 21:27 Pulse Rate 96 H 05/04/24 22:31 Respiratory Rate 26 H 05/04/24 22:31 Blood Pressure 119/81 05/04/24 22:31 Pulse Oximetry 100 05/04/24 22:31 Oxygen Delivery Method Room Air 05/04/24 21:27 MDM - Arrhythmia/Palpitations MDM Narrative Medical decision making narrative: 2155: EKG, laboratory testing and CT angio of the chest were ordered. Patient was made aware that based on her symptoms and worsening shortness of breath, pulmonary embolism should be ruled out. She has no other complaints of upper respiratory symptoms or history of asthma to account for her shortness of breath and palpitations. Patient is very comfortable with CT imaging. She understands the risks of radiation with performing this test and understands the need to rule out pulmonary embolism. Case turned over to attending physician at this time for disposition. SHARED APC VISIT, PHYSICIAN ATTESTATION: [id number] I performed a substantive part of the MDM during the patient?s E/M visit. I personally evaluated and examined the patient. I personally made or approved the documented management plan and acknowledge its risk of complications. This 33-year-old female G4, P3 who is approximately 26 weeks was seen and evaluated in conjunction with the physician plant attendant or assistant operator. Please refer to her full H&P. She presents for evaluation of shortness of breath with palpitations. The patient states to me that everything hurts at this point in her . She states she has exertional dyspnea with any movement including getting out of bed. She is not having any lower extremity pain or swelling. She was seen by [facility] prior to coming to the emergency department. I reviewed her EKG which is a sinus tachycardia. Routine labs are reviewed. She has a normal white count is mildly anemic with a hemoglobin of 9.4. Electrolytes are normal with the exception of a potassium of 3.3. This was replaced orally. Troponin is normal. CTA of the chest was reviewed and is negative for pulmonary embolism but does show some reflux of contrast into the hepatic veins which may be consistent with right sided heart disease. This was discussed with her. Clinically there is no findings concerning for this. She does not have any JVD, she does not have any fluid overload, her lungs are clear, she is not having any related complaints. She was given IV fluids and her potassium was replaced orally. She follows up with Dr. Valdez. I encouraged her to follow-up closely with Dr. Valdez and return to the emergency department for any concerns but at this time she is stable for discharge. She was encouraged to drink plenty of fluids and will be discharged home with a prescription for potassium replacement. Medical Records Attestation: I reviewed the patient's medical records. Lab Data Attestation: I reviewed the patient's lab results. Labs: Lab Results 05/04/24 Range/Units 21:51 WBC 7.6 (4.0-11.0) 10^3/uL RBC 3.01 L (4.20-5.40) 10^6/uL Hgb 9.4 L (12.0-16.0) g/dL Hct 28.9 L (36.0-48.0) % MCV 96.0 (81.0-99.0) fL MCH 31.2 (26.7-34.0) pg MCHC 32.5 (29.9-35.2) g/dL RDW 14.6 (11.0-15.0) % Plt Count 162 (150-450) 10^3/uL MPV 12.2 (9.5-13.5) fL Neut % (Auto) 59.8 (43.0-75.0) % Lymph % (Auto) 33.3 (20.5-60.0) % [place] % (Auto) 5.1 (1.7-12.0) % Eos % (Auto) 0.8 L (0.9-7.0) % Baso % (Auto) 0.3 (0.2-2.0) % Neut # (Auto) 4.6 (1.4-6.5) 10^3/uL Lymph # (Auto) 2.5 (1.2-3.8) 10^3/uL [place] # (Auto) 0.4 (0.3-0.8) 10^3/uL Eos # (Auto) 0.1 (0.0-0.7) 10^3/uL Baso # (Auto) 0.0 (0.0-0.1) 10^3/uL Abs Immat Gran (auto) 0.05 H (0.00-0.03) 10^3/uL Imm/Tot Granulo (auto) 0.7 H (0.0-0.5) % Sodium 136 (136-145) mmol/L Potassium 3.3 L (3.5-5.1) mmol/L Chloride 104 (98-107) mmol/L Carbon Dioxide 24.4 (21.0-32.0) mmol/L Anion Gap 10.9 BUN 5.0 L (7.0-18.0) mg/dL Creatinine 0.67 (0.55-1.02) mg/dL Est GFR ( Amer) >60 (>=60 mL/min/1.73m^2) Est GFR (Non-Af Amer) >60 (>=60 mL/min/1.73m^2) BUN/Creatinine Ratio 7.5 Glucose 85 (74-106) mg/dL Calcium 8.7 (8.5-10.1) mg/dL Total Bilirubin 0.6 (0.2-1.0) mg/dL AST 12 L (15-37) U/L ALT 9 L (14-59) U/L Alkaline Phosphatase 45 L (46-116) U/L Troponin I High Sens 6.2 (4.0-51.3) pg/mL Total Protein 6.8 (6.4-8.2) g/dL Albumin 2.8 L (3.4-5.0) g/dL Globulin 4.0 g/dL Albumin/Globulin Ratio 0.7 ECG Data Attestation: I personally reviewed and interpreted this ECG as follows: (Sinus tachycardia at a rate of 104, no acute ST elevation or ectopy. EKG reviewed by attending physician) Discharge Plan Discharge Chief Complaint: Arrhythmia/Palpitations Clinical Impression: Shortness of breath, Palpitations Patient Disposition: Home, Self-Care Time of Disposition Decision: 23:19 Condition: Good Prescriptions / Home Meds: No Action azathioprine 50 mg tablet 150 mg PO QDAY folic acid 1 mg tablet 1 mg PO QAM cholecalciferol (vitamin D3) 1,250 mcg (50,000 unit) capsule 1,250 mcg PO QWEEK nitrofurantoin monohyd/m-cryst 100 mg capsule 100 mg PO Q12H Print Language: Latvian Instructions: Shortness of Breath (ED) Referrals: Hilary Aviles QUANTITATIVE ANALYST DEVELOPER [Primary Care Provider] - 1 week
[2024-05-04 22:11] LABS: Basophils Percent Auto 0.3 % (0.2-2.0); Eosinophils Absolute Auto 0.1 10^3/uL (0.0-0.7); Eosinophils Percent Auto 0.8 % (0.9-7.0); Hematocrit 28.9 % (36.0-48.0); Hemoglobin 9.4 g/dL (12.0-16.0); Immature Granulocytes Abs Auto 0.05 10^3/uL (0.00-0.03); Immature Granulocytes Pct Auto 0.7 % (0.0-0.5); Lymphocytes Absolute Auto 2.5 10^3/uL (1.2-3.8); Lymphocytes Percent Auto 33.3 % (20.5-60.0); Mean Corpuscular HGB Conc 32.5 g/dL (29.9-35.2); Mean Corpuscular Hemoglobin 31.2 pg (26.7-34.0); Mean Platelet Volume 12.2 fL (9.5-13.5); Monocytes Absolute Auto 0.4 10^3/uL (0.3-0.8); Monocytes Percent Auto 5.1 % (1.7-12.0); Neutrophils Absolute Auto 4.6 10^3/uL (1.4-6.5); Neutrophils Percent Auto 59.8 % (43.0-75.0); Platelet Count 162 10^3/uL (150-450); Red Blood Count 3.01 10^6/uL (4.20-5.40); Red Cell Distribution Width 14.6 % (11.0-15.0); White Blood Count 7.6 10^3/uL (4.0-11.0)
[2024-05-04 22:31] LABS: Alanine Aminotransferase 9 U/L (14-59); Albumin Globulin Ratio 0.7; Albumin Level 2.8 g/dL (3.4-5.0); Alkaline Phosphatase 45 U/L (46-116); Anion Gap 10.9; Aspartate Amino Transferase 12 U/L (15-37); BUN Creatinine Ratio 7.5; Bilirubin Total 0.6 mg/dL (0.2-1.0); Calcium 8.7 mg/dL (8.5-10.1); Carbon Dioxide 24.4 mmol/L (21.0-32.0); Chloride 104 mmol/L (98-107); Estimated GFR (African America >60 (>=60 mL/min/1.73m^2); Estimated GFR (Non-African Ame >60 (>=60 mL/min/1.73m^2); Glucose 85 mg/dL (74-106); Potassium 3.3 mmol/L (3.5-5.1); Sodium 136 mmol/L (136-145); Total Protein 6.8 g/dL (6.4-8.2); Troponin I High Sensitivity 6.2 pg/mL (4.0-51.3)
[2024-05-04] MEDS: 0.9 % SODIUM CHLORIDE 1,000 ML 999 ML IV (22:33)
[2024-05-04] MEDS: POTASSIUM CHLORIDE 10 MEQ ER TABLET 20 MEQ PO (23:33)
== END 2024-05-04 23:37 | disposition home or self-care (01) ==
PROVIDERS: Physician Assistant; Emergency Provider Emergency Medicine; PCP Nurse Practitioner
DX: O99.891 Other specified diseases and conditions complicating pregnancy (principal); R06.02 Shortness of breath; R00.2 Palpitations; Z3A.26 26 weeks gestation of pregnancy
CPT/HCPCS: 36415; 59025; 71275; 80053; 81001; 84484; 85025; 87086; 93005; 99285; G0378; G0379; Q9967

== ENCOUNTER 2024-05-08 08:00 | Outpatient (OUT) | payer OTHER, MEDICAID, SELFPAY ==
--- OUTSIDE RECORDS SUMMARY | 2024-05-08 08:03 | XMS_ITS | CCD ---
Author Organization [facility] Care Team Providers Care Etl Manager Name Role Phone ADAMOWICZ, SAMARA J Unavailable Unavailable ADAMOWICZ, SAMARA J Unavailable Unavailable ADAMOWICZ, SAMARA J Unavailable Unavailable ADAMOWICZ, SAMARA J Unavailable Unavailable ADAMOWICZ, SAMARA J Unavailable Unavailable ADAMOWICZ, SAMARA J Unavailable Unavailable ADAMOWICZ, SAMARA J Unavailable Unavailable ADAMOWICZ, SAMARA J Unavailable Unavailable SEBASTIAN HERRING Attending Unavailable SEBASTIAN HERRING Consulting Unavailable SEBASTIAN HERRING Admitting Unavailable [facility], [facility] VELAZCO Primary Care Unavailable Hilary Aviles MD Unavailable [phone] MJ PIZARRO Referring Unavailable TRACI HILARY A Primary Care Unavailable MJ PIZARRO Referring Unavailable TRACI HILARY A Primary Care Unavailable LYNDSEY ANDERS Attending Unavailable LYNDSEY ANDERS Referring Unavailable TRACI HILARY A Primary Care Unavailable DOMINIQUE MOYA Attending Unavailable HILARY AVILES Referring Unavailable HILARY AVILES A Primary Care Unavailable FRANK AVILESITH A Primary Care Unavailable RAULITO SIDDIQUI Attending Unavailab HILARY Ivan A Primary Care Unavailable SESAR PRICE Attending Unavailable Traci ESTATE MANAGER-SHELF FILLER, Hilary A Primary Care Provi lazarus Traci ESTATE MANAGER-SHELF FILLER, Hilary A Primary Care Provi lazarus HILARY AVILES Referring Unavailable HILARY AVILES A Primary Care Unavailable SHARDA MONTIEL Referring Unavailable FRANK AVILESITH A Primary Care Unavailable HILARY AVILES A Referring Unavailable HILARY AVILES A Primary Care Unavailable SHARDA MONTIEL Attending [...] Primary Care Unavailable YAQUELIN HORNE Attending Unavailable COURTNEY, PARISH Attending Unavailable COURTNEY, PARISH Attending Unavailable YAQUELIN HORNE Attending Unavailable COURTNEY, PARISH Attending Unavailable Traci ESTATE MANAGER-SHELF FILLER, Hilary A Primary Care Provi lazarus TRACI, HILARY A Attending Unavailable TRACI, HILARY A Referring Unavailable TRACI, HILARY A Primary Care Unavailable TRACI, HILARY A Attending Unavailable TRACI, HILARY A Referring Unavailable TRACI, HILARY A Primary Care Unavailable TRACI, HILARY A Attending Unavailable TRACI, HILARY A Referring Unavailable TRACI, HILARY A Primary Care Unavailable RAULITO JIMENEZ Attending Unavailable TRACI, HILARY A Referring Unavailable TRACI, HILARY A Primary Care Unavailable Allergies Allergy Classification Reported Allergen(s) Allergy Type Date of Onset Reaction(s) Facility (20 sources) Sertraline; Translations: [SERTRALINE] Drug Allergy 11-09-2018 Diarrhea [facility] Medications Current Medications Medication Drug Class(es) Dates Sig (Normalized) Sig (Original) acetaminophen 325 mg / HYDROcodone bitartrate 5 mg oral tablet (3 sources) Opioid Agonist Start: 04-20-2024 take 1 tablet by mouth every six hours for pain HYDROcodone-acetaminop hen ([place]) 5-325 MG tablet Indications: Abdominal pain, unspecified abdominal location , Crohn's disease with complication, unspecified gastrointestinal tract location (CMS/HCC) Take 1 tablet by mouth every 6 (six) hours if needed for moderate pain or severe pain for up to 15 doses 15 tablet 04/20/2024 Active [id number] 200 actuat albuterol 0.09 mg/actuat metered dose [...] tablet 1 06/15/2024 Active Start: 01-27-2024 End: 05-06-2024 take 1 capsule by mouth every week cholecalciferol (VITAMIN D3) 50,000 units capsule Take 1 capsule (50,000 Units total) by mouth once a week. 8 capsule 04/20/2024 05/06/2024 Discontinued Start: 01-26-2024 End: 04-19-2024 take 1 capsule [...] MCG (1000 UT) capsule 1,000 Units. Active 1 ml EPINEPHrine 1 mg/ml injection (1 source) alpha-Adrenergic Agonist, beta-Adrenergic Agonist, Catecholamine Start: 02-06-2023 End: 02-07-2023 EPINEPHrine (ADRENALIN) 1 mg/mL injection FOR ANAPHYLAXIS 0.3 mg folic acid 1 mg oral tablet (20 sources) Start: 10-31-2023 End: 05-06-2024 take 1 tablet by mouth in the morning folic acid (FOLVITE) 1 mg tablet Indications: 26 weeks gestation of Take 1 tablet (1 mg total) by mouth in the morning. 05/06/2024 Active Start: 08-02-2021 End: 08-20-2023 take 1 tablet by mouth in the morning folic acid (Folvite) 1 MG tablet Take 1,000 mcg by mouth in the morning. 05/07/2022 Active folic acid 0.4 mg / vitamin b12 1 mg sublingual tablet (20 sources) Vitamin B12 Cobalamin Combin ations (B-12) 100-5000 MCG sublingual tablet B12 Active End: 08-20-2023 cyanocobalamin/folic acid (v itamin Q05-bfuyp acid) 1,000-400 mcg lozenge B12 08/20/2023 Discontinued [...] days. 14 tablet 0 02/20/2023 02/27/2023 Active labetalol hydrochloride 100 mg oral tablet (1 source) beta-Adrenergic Stephanie Start: 05-06-2024 End: 06-05-2024 take 1 tablet by mouth once in the morning, then take 1 tablet by mouth at bedtime labetaloL (NORMODYNE) 100 mg tablet Indications: HTN complicating peripregnancy, antepartum, second trimester , 26 weeks gestation of Take 1 tablet (100 mg total) by mouth in the morning and 1 tablet (100 mg total) before bedtime. Do all this for 30 days. 60 tablet 05/06/2024 06/05/2024 Active magnesium oxide 400 mg oral tablet (5 sources) Start: 01-23-2024 End: 02-22-2024 take 1 tablet by mouth once daily magnesium oxide (Mag-Ox) 400 MG tablet Indications: headache in first trimester Take 1 tablet (400 mg) by mouth Daily 30 tablet 6 01/23/2024 02/22/2024 Active methylPREDNISolone 125 mg injection (1 source) Corticosteroid Start: 02-06-2023 End: 02-07-2023 methylPREDNISolone sod suc(PF) (Solu-MEDROL) injection 125 mg nitrofurantoin, macrocrystals 25 mg / nitrofurantoin, monohydrate 75 mg oral capsule (1 source) Nitrofuran Antibacterial Start: 05-01-2024 End: 05-08-2024 take 1 capsule by mouth in the morning, then take 1 capsule by mouth at bedtime nitrofurantoin, macrocrystal-monohydr ate, (MACROBID) 100 mg capsule Take 1 capsule (100 mg total) by mouth in the morning and 1 capsule (100 mg total) before bedtime. Take for 7 days. 05/01/2024 05/08/2024 Active ondansetron 4 mg disintegrating oral tablet (15 sources) Serotonin-3 Receptor Antagonist Start: 12-29-2023 End: [...] as needed for nausea or vomiting. Active polysaccharide iron complex 391 mg oral capsule (1 source) Start: 05-03-2024 End: 06-02-2024 polysaccharide iron complex 180 mg iron capsule Take 391.3 mg by mouth in the morning. 05/03/2024 06/02/2024 Active vit no.124/iron/folic ( VITAMIN ORAL) (11 sources) take 1 tablet by mouth in the morning vit no.124/iron/folic ( VITAMIN ORAL) Take 1 tablet by mouth in the morning. Active Completed/Discontinued Medications Medication Drug Class(es) Dates [...] (eight) hours. 21 capsule 11/26/2021 08/20/2023 Discontinued citalopram 20 mg oral tablet (20 sources) Serotonin Reuptake Inhibitor Start: 09-17-2023 End: 05-06-2024 take 1.5 tablets by mouth in the morning citalopram (CeleXA) 20 mg tablet Indications: Current moderate episode of major depressive disorder without prior episode (CMS-HCC) Take 1.5 tablets (30 mg total) by mouth in the morning. 30 tablet 2 09/17/2023 05/06/2024 Discontinued Start: 08-20-2023 End: 09-17-2023 take 1 tablet by mouth in the morning citalopram (CeleXA) 20 mg tablet Indications: Anxiety Take 1 tablet (20 mg total) by mouth in the morning. 30 tablet 2 08/20/2023 09/17/2023 Discontinued ferric carboxymaltose (INJECTAFER) 750 mg in sodium chloride 0.9 % 100 mL IVPB (1 source) Start: 02-06-2023 End: 02-06-2023 ferric carboxymaltose (INJECTAFER) 750 mg in sodium chloride 0.9 % 100 mL IVPB inFLIXimab 100 mg injection (20 sources) Tumor Necrosis Factor Stephanie End: 05-06-2024 inFLIXimab (REMICADE) 10 mg/mL injection Infuse 5 mg/kg into a venous catheter See Admin Instructions. Every 6 weeks 05/06/2024 Discontinued End: 05-06-2024 inFLIXimab-dyyb (INFLECTRA) 100 mg injection Indications: Crohn's disease Infuse 5 mg/kg into a venous catheter once Indications: Crohn's disease. Every 6 weeks 05/06/2024 Discontinued End: 05-06-2024 inFLIXimab-axxq (AVSOLA) 100 mg injection Infuse 5 mg/kg into a venous catheter every 6 (six) weeks. 05/06/2024 Discontinued inFLIXimab-dyyb (Inflectra) 100 MG injection Infuse 5 mg/kg into a venous catheter Active End: 08-20-2023 inFLIXimab-dyyb (INFLECTRA) 100 mg injection Indications: Crohn's disease Infuse 5 mg/kg into a venous catheter See Admin Instructions Indications: Crohn's disease. Every 8 weeks 08/20/2023 Discontinued inFLIXimab-axxq (AVSOLA) 5 mg/kg = 400 mg in sodium chloride 0.9 % 250 mL IVPB (2 sources) Start: 04-19-2024 End: 04-19-2024 400 mg (rounded from 417.5 m g = 5 mg/kg 83.5 kg), intravenous, Once, [...] - 1.2 micron filter. Start: 10-31-2023 End: 09-20-2024 400 mg (rounded from 379 mg = [...] End: 02-07-2023 sodium chloride 0.9 % bolus vitamin b12 1 mg oral tablet (19 sources) Vitamin B12 Start: 04-20-2024 End: 05-06-2024 take 1 tablet by mouth in the morning cyanocobalamin (vitamin B-12) 1000 MCG tablet Take 1 tablet (1,000 mcg total) by mouth in the morning. 90 tablet 3 04/20/2024 05/06/2024 Discontinued Start: 05-28-2020 End: 08-20-2023 take 2 tablets [...] disorder, unspecified] Onset: 9 12-14-2018 Chronic Asthma (2 sources) Unspecified asthma with (acute) exacerbation; Translations: [Reactive airway disease] Onset: 4 02-20-2023 Chronic Coagulation and hemorrhagic [...] Codes: Fall (1 source) Fall Onset: 4 Essential hypertension (2 sources) Hypertensive disorder; Translations: [Essential (primary) hypertension] Onset: 5 05-06-2024 Chronic Hypertension complicating ; childbirth and the puerperium (4 sources) Hypertension complicating ; Translations: [Unspecified maternal hypertension, second trimester] Onset: 5 05-06-2024 Chronic Immunizations and screening for infectious disease (3 [...] level monitoring] 02-03-2024 Episodic Other complications of (2 sources) Anemia in mother complicating , childbirth AND/OR puerperium; Translations: [Anemia complicating , unspecified trimester] Onset: 8 05-06-2024 Chronic Other complications of (1 source) Anemia complicating , unspecified trimester; Translations: [Anemia complicating , unspecified trimester] Onset: 5 Chronic Other complications of (1 source) Headache; Translations: [...] Onset: 3 Episodic Other upper respiratory infections (1 source) Sinusitis; Translations: [Chronic sinusitis, unspecified] 02-20-2023 Chronic Regional enteritis and ulcerative colitis (20 sources) Crohn's disease of small AND large intestines; Translations: [Crohn's disease of both small and large intestine with intestinal obstruction] Onset: 9 03-03-2018 Chronic Residual codes; unclassified [...] [23 weeks gestation of ] 04-14-2024 Episodic Residual codes; unclassified (2 sources) Gestation period, 26 weeks; Translations: [26 weeks gestation of ] 05-06-2024 Episodic Residual codes; unclassified (1 source) 26 weeks gestation of ; Translations: [26 weeks gestation of ] Onset: 5 Episodic Unclassified (1 source) Constipation, Early Onset: 4 Unclassified (2 sources) Outpatient Infusion Onset: 3 Unclassified (1 source) Er Follow-up Onset: 5 Unclassified (1 source) FMLA Onset: 4 Past or Other Problems Problem Classification Problem [...] Mood disorders (20 sources) Mood disorders Onset: 09-17-2023 Resolved: 05-06-2024 09-17-2023 Nutritional deficiencies (20 sources) Cobalamin deficiency; [...] 05-08-2022 05-08-2022 Episodic Other lower respiratory disease (20 sources) [...] Arredondo on 05-04-2024 Radiology Study observation (narrative) [facility] Urinalysis macro (dipstick) panel (U)on 04-26-2024 Bilirubin, UA Negative Negative - 4(70) +++ mg/dL [facility] Blood, UA Negative Negative - 50 Enrrique/mcL [facility] Clarity, UA Clear [facility] Color, UA Yellow [facility] Glucose, UA Negative Negative - 2000(110) ++++ mg/dL [facility] Interpretation and review of laboratory results Abnormal [facility] Ketones, UA Positive Negative - 160(16) ++++ mg/dL [facility] Leukocytes, UA Negative Negative - 500+++ Cam/mcL [facility] Nitrite, UA Negative Negative - Positive [facility] pH, UA 6.5 5 - 9 [facility] Protein, UA Negative Negative - 1999(20) ++++ mg/dL [facility] Spec Grav, UA 1.03 1 - 1.03 [facility] Urobilinogen, UA 1.0 0.2 - 12 mg/dL [facility] US OB LIMITED 1+ FETUSESon 0 [...] II, MD, PHD at 22-Apr-2024 09:07:11 AM [facility] Normal Not Available Comment on above: Order Comment: US OB INCOMPLETE ANATOMY Estimated Date of Delivery: 08/11/24 Gestational Age as of 03/25/2024: 20w1d CBC AND AUTO DIFFon 04-20-19 25 ABSOLUTE BASOPHIL 0.0 X10E9/L Normal 0.0-0.2 [facility] Comment on above: Performed By: #### 2 276-4, CBCA, FEPR #### [facility] ([id number]) [address], [address] [place] [address] ABSOLUTE NEUTROPHIL 5.2 X10E9/L Normal 1.5-6.6 [facility] Comment on above: Performed By: #### 2 276-4, CBCA, FEPR #### [facility] ([id number]) [address], [address] [place] [address] Basophils/100 WBC (Bld) 0.4 % Normal [facility] Comment on above: Performed By: #### 2 276-4, CBCA, FEPR #### [facility] ([id number]) [address] [address] Eosinophils (Bld) [#/Vol] 0.0 10*3/uL Normal 0.0-0.4 [facility] Comment on above: Performed By: #### 2 276-4, CBCA, FEPR #### [facility] ([id number]) [address] [address] Eosinophils/100 WBC (Bld) 0.6 % Normal [facility] Comment on above: Performed By: #### 2 276-4, CBCA, FEPR #### [facility] ([id number]) [address] [address] Erythrocyte distribution width (RBC) [Ratio] 14.6 % Normal 11.5-15.0 [facility] Comment on above: Performed By: #### 2 276-4, CBCA, FEPR #### [facility] ([id number]) [address] [address] Hematocrit (Bld) [Volume fraction] 32.4 % Low 35-47 [facility] Comment on above: Performed By: #### 2 276-4, CBCA, FEPR #### [facility] ([id number]) [address] [address] Hemoglobin (Bld) [Mass/Vol] 10.7 g/dL Low 11.7-15.5 [facility] Comment on above: Performed By: #### 2 276-4, CBCA, FEPR #### [facility] ([id number]) [address] [address] Lymphocytes (Bld) [#/Vol] 1.9 10*3/uL Normal 1.0-3.5 [facility] Comment on above: Performed By: #### 2 276-4, CBCA, FEPR #### [facility] ([id number]) [address] [address] [place] [address] Lymphocytes/100 WBC (Bld) 24.8 % Normal [facility] Comment on above: Performed By: #### 2 276-4, CBCA, FEPR #### [facility] ([id number]) [address], [address] [address] MCH (RBC) [Entitic mass] 30.9 pg Normal 27-34 [facility] Comment on above: Performed By: #### 2 276-4, CBCA, FEPR #### [facility] ([id number]) [address] [address] MCHC (RBC) [Mass/Vol] 33.0 g/dL Normal 32-36 [facility] Comment on above: Performed By: #### 2 276-4, CBCA, FEPR #### [facility] ([id number]) [address] [address] MCV (RBC) [Entitic vol] 94 fL Normal 80-100 [facility] Comment on above: Performed By: #### 2 276-4, CBCA, FEPR #### [facility] ([id number]) [address] [address] Monocytes (Bld) [#/Vol] 0.5 10*3/uL Normal 0-0.9 [facility] Comment on above: Performed By: #### 2 276-4, CBCA, FEPR #### [facility] ([id number]) [address] [address] Monocytes/100 WBC (Bld) 6.5 % Normal [facility] Comment on above: Performed By: #### 2 276-4, CBCA, FEPR #### [facility] ([id number]) [address] [place] [address] Neutrophils/100 WBC (Bld) 67.7 % Normal [facility] Comment on above: Performed By: #### 2 276-4, CBCA, FEPR #### [facility] ([id number]) [address], [facility] [address] [place] [address] Platelet mean volume (Bld) [Entitic vol] 10.8 fL Normal 7-12 [facility] Comment on above: Performed By: #### 2 276-4, CBCA, FEPR #### [facility] ([id number]) [address], [facility] [address] [place] [address] Platelets (Bld) [#/Vol] 162 10*3/uL Normal 150-450 [facility] Comment on above: Performed By: #### 2 276-4, CBCA, FEPR #### [facility] ([id number]) [address], [facility] [address] [place] [address] RBC COUNT 3.46 X10E12/L Low 3.80-5.20 [facility] Comment on above: Performed By: #### 2 276-4, CBCA, FEPR #### [facility] ([id number]) [address], [facility] [address] [place] [address] WBC (Bld) [#/Vol] 7.7 10*3/uL Normal 4.0-11.0 [facility] Comment on above: Performed By: #### 2 276-4, CBCA, FEPR #### [facility] ([id number]) [address], [address] [place] [address] FERRITINon 04-19-2024 Ferritin [Mass/Vol] 9 ng/mL Low 11-307 [facility] Comment on above: Performed By: #### 2 276-4, CBCA, FEPR #### [facility] ([id number]) [address], [address] [place] [address] IRON PROFILEon 04-19-2024 Iron [Mass/Vol] 78 ug/dL Normal 50-170 [facility] Comment on above: Performed By: #### 2 276-4, CBCA, FEPR #### [facility] ([id number]) [address], [address] [place] [address] IRON BINDING 475 ug/dL High 250-425 [facility] Comment on above: Performed By: #### 2 276-4, CBCA, FEPR #### [facility] ([id number]) [address], [address] [place] [address] IRON SATURATION 16 % SATURATION Normal 15-50 [facility] Comment on above: Performed By: #### 2 276-4, CBCA, FEPR #### [facility] ([id number]) [address], [address] [place] [address] THIOPURINE METABOLITESon 6 METHYLMERCAPTOPRNE <475 Normal < or = 5700 [facility] Comment on above: Result Comment: NOTE Result not quantifiable; below the limit of quantitation. Decreased risk of hepatotoxicity. ADDITIONAL INFORMATION Testing performed by Liquid Chromatography-Tandem Mass Spectrometry (LC-MS/MS) This test was developed and its performance characteristics determined by [facility] in a manner consistent with CLIA requirements. This test has not been cleared or approved by the U.S. Food and Drug Administration. Test Performed by: [facility] [address] [place] [address] Sausage Maker: Celi Fernandez Ph.D.; CLIA# [id number] Performed By: #### 2 276-4, CBCA, FEPR #### [facility] ([id number]) [address], [address] [place] [address] 6 THIOGUANINE 101 pmol/8x10(8)RBC Low 235 - 450 [facility] Comment on above: Result Comment: NOTE Decreased possibility of response; suboptimal dosing or noncompliance. Performed By: #### 2 276-4, CBCA, FEPR #### [facility] ([id number]) [address], [address] [place] [address] VITAMIN B12on 04-19-2024 Cobalamin (Vitamin B12) [Mass/Vol] 143 pg/mL Low 180-914 [facility] Comment on above: Performed By: #### 2 276-4, CBCA, FEPR #### [facility] ([id number]) [address], [address] [place] [address] Vitamin D+Metabolites [Mass/ Vol]on 04-19-2024 VITAMIN D 25 HYD TOT 12.0 ng/mL Low 30-100 [facility] Comment on above: Result Comment: Vitamin D status 25 [place] Vitamin D Deficiency <20 ng/mL Insufficiency 20-29 ng/mL Sufficiency 30-100 ng/mL Toxicity >100 ng/mL NOTE: A pediatric reference range has not been established by the criminal justice department chair of this kit. The [place] [employer] recommends a Vitamin D level of = or >20ng/mL in infants and children. Performed By: #### 2 276-4, CBCA, FEPR #### [facility] ([id number]) [address], [address] [place] [address] No Panel Informationon 03-24 Radiology Study observation (narrative) [facility] US OB ANATOMYon 03-24-2024 [facility] [address] [place] [address] Ultrasound Report Signed Patient: JUAN LUIS STOREY MR#: [id number] : 1990 Acct:[id number] Age/Sex: 33 / F ADM Date: 03/24/24 Loc: US Attending Dr: Parish Valdez D.O. Ordering Physician: Parish Valdez D.O. Date of Service: 03/24/24 Procedure(s): US OB anatomy Accession Number(s): [id number] cc: Parish Valdez D.O.; Hilary Aviles NP [address] [address] Patient Name: JUAN LUIS STOREY [facility]:[id number] date: 1990 Sex: F Assigned Patient Location: US Current Patient Location: US Accession/Order Number: [id number] Exam Date: 03/24/2024 10:45 Report Date: 03/24/2024 [...] Signed By: 03/24/24 1139 DD/ 1136 TD/TT: Maintenance Journeyman: [facility] Radiology, Radiologaditya duncan MD - 03/24/2024 [place] [address] Ultrasound Report Signed Patient: JUAN LUIS STOREY MR#: [id number] : 1990 Acct:[id number] Age/Sex: 33 / F ADM Date: 03/24/24 Loc: US Attending Dr: Parish Valdez D.O. Ordering Physician: Parish Valdez D.O. Date of Service: 03/24/24 Procedure(s): US OB anatomy Accession Number(s): [id number] cc: Parish Valdez D.O.; Hilary Aviles NP [facility] [place] [address] Patient Name: JUAN LUIS STOREY MRN: [facility]:[id number] date: 1990 Sex: F Assigned Patient Location: US Current Patient Location: US Accession/Order Number: [id number] Exam Date: 03/24/2024 10:45 Report Date: 03/24/2024 [...] Signed By: 03/24/24 1139 DD/ 1136 TD/TT: Maintenance Journeyman: [facility] US OB ANATOMYOrdered By: Sergio iologbruna Radiology on 03-24-2024 [facility] Work Phone: US OB CERVICAL LENGTHon 03-13 [place] [address] Ultrasound Report Signed Patient: JUAN LUIS STOREY MR#: [id number] : 1990 Acct:[id number] Age/Sex: 33 / F ADM Date: 03/24/24 Loc: US Attending Dr: Parish Valdez D.O. Ordering Physician: Parish Valdez D.O. Date of Service: 03/24/24 Procedure(s): US OB cervical length Accession Number(s): [id number] cc: Parish Valdez D.O.; Hilary Aviles NP [place] [id number] Patient Name: JUAN LUIS STOREY MRN: [facility]:[id number] date: 1990 Sex: F Assigned Patient Location: US Current Patient Location: US Accession/Order Number: [id number] Exam Date: 03/24/2024 10:45 Report Date: 03/24/2024 [...] Signed By: 03/24/24 1138 DD/ 1136 TD/TT: Maintenance Journeyman: [facility] Radiology, Radiologi MD perla - 03/24/2024 [place] [address] Ultrasound Report Signed Patient: JUAN LUIS STOREY MR#: [id number] : 1990 Acct:[id number] Age/Sex: 33 / F ADM Date: 03/24/24 Loc: US Attending Dr: Parish Valdez D.O. Ordering Physician: Parish Valdez D.O. Date of Service: 03/24/24 Procedure(s): US OB cervical length Accession Number(s): [id number] cc: Parish Valdez D.O.; Hilary Aviles NP [facility] [place] [address] Patient Name: JUAN LUIS STOREY MRN: [facility]:[id number] date: 1990 Sex: F Assigned Patient Location: US Current Patient Location: US Accession/Order Number: [id number] Exam Date: 03/24/2024 10:45 Report Date: 03/24/2024 [...] Signed By: 03/24/24 1138 DD/ 1136 TD/TT: Maintenance Journeyman: [facility] US OB CERVICAL LENGTHOrdered By: Radiologist Radiology on 03-24-2024 [facility] Work Phone: Ultrasound - OfficeOrdered B y: Rachelle Arredondo on 03-24-2024 [facility] Unlisted Lab Teston 03-24-19 [facility] RECURRENT VAGINITIS (HTRX)on 03-18-2024 ATOPOBIUM VAGINAE 0 [facility] V[facility]AE [facility] (BACTERIAL VAGINOSIS ASSOCIATED BACTERIA 2, 3); MOBILUNCUS SPP 0 [facility] BVAB 2,3 (BACTERIAL VAGINOSIS ASSOCIATED BACTERIA 2, 3); MOBILUNCUS SPP Not detected [facility] WARD ALBICANS, PARAPSILOSIS, TROPICALIS 0 [facility] WADR ALBICANS, PARAPSILOSIS, TROPICALIS Not detected [facility] [...] [facility] US OB CERVICAL LENGTHon 02-12 [place] [address] Ultrasound Report Signed Patient: JUAN LUIS STOREY MR#: [id number] : 1990 Acct:[id number] Age/Sex: 33 / F ADM Date: 03/11/24 Loc: US Attending Dr: Parish Valdez D.O. Ordering Physician: Parish Valdez D.O. Date of Service: 03/11/24 Procedure(s): US OB cervical length Accession Number(s): [id number] cc: Parish Valdez D.O.; Hilary Aviles NP [place] [address] Patient Name: JUAN LUIS STOREY MRN: [facility]:[id number] date: 1990 Sex: F Assigned Patient Location: US Current Patient Location: US Accession/Order Number: [id number] Exam Date: 03/11/2024 10:15 Report Date: 03/11/2024 [...] Signed By: 03/11/24 1056 DD/ 1053 TD/TT: Maintenance Journeyman: [facility] Radiology, Radiologi MD perla - 03/11/2024 [place] [address] Ultrasound Report Signed Patient: JUAN LUIS STOREY MR#: [id number] : 1990 Acct:[id number] Age/Sex: 33 / F ADM Date: 03/11/24 Loc: US Attending Dr: Parish Valdez D.O. Ordering Physician: Parish Valdez D.O. Date of Service: 03/11/24 Procedure(s): US OB cervical length Accession Number(s): [id number] cc: Parish Valdez D.O.; Hilary Aviles NP [facility] [place] [address] Patient Name: JUAN LUIS STOREY MRN: [id number] date: 1990 Sex: F Assigned Patient Location: US Current Patient Location: US Accession/Order Number: [id number] Exam Date: 03/11/2024 10:15 Report Date: 03/11/2024 [...] Signed By: 03/11/24 1056 DD/ 1053 TD/TT: Maintenance Journeyman: [facility] Radiology Study observation (narrative) [facility] US OB CERVICAL LENGTHOrdered By: Radiologist Radiology on 03-11-2024 [facility] Work Phone: Urinalysis macro (dipstick) panel (U)on 02-18-2024 Bilirubin, UA Negative Negative - 4(70) +++ mg/dL [facility] Blood, UA Positive Negative - 50 Enrrique/mcL [facility] Comment on above: trace Clarity, UA Clear [facility] Color, UA Yellow [facility] Glucose, UA Negative Negative - 1999(110) ++++ mg/dL [facility] Interpretation and review of laboratory results Abnormal [facility] Ketones, UA Positive Negative - 160(16) ++++ mg/dL [facility] Comment on above: trace Leukocytes, UA Trace Negative - 500+++ Cam/mcL [facility] Nitrite, UA Negative Negative - Positive [facility] pH, UA 7 5 - 9 [facility] Protein, UA Positive Negative - 1999(20) ++++ mg/dL [facility] Comment on above: 30 Spec Grav, UA 1.03 1 - 1.03 [facility] Urobilinogen, UA 1.0 0.2 - 12 mg/dL [facility] ALL CBC WITH AUTO DIFFon BASOPHILS ABSOLUTE AUTO 0 [facility] Basophils/100 WBC (Bld) 0.2 % 0.2 - 2.0 % [facility] Eosinophils/100 WBC (Bld) 0.9 % 0.9 - 7.0 % [facility] Erythrocyte distribution width (RBC) [Ratio] 12.5 % 11.0 - 15.0 % [facility] Hematocrit (Bld) [Volume fraction] 35.3 % Low 36.0 - 48.0 % [facility] Hemoglobin (Bld) [Mass/Vol] 11.8 g/dL Low 12.0 - 16.0 g/dL [facility] IMMATURE GRANULOCYTES ABS AUTO 0.03 [facility] Immature granulocytes/100 WBC (Bld) 0.4 % 0.0 - 0.5 % [facility] Interpretation and review of laboratory results Abnormal [facility] LYMPHOCYTES ABSOLUTE AUTO 2.4 [facility] Lymphocytes/100 WBC (Bld) 29.2 % 20.5 - 60.0 % [facility] MCH (RBC) [Entitic mass] 32 pg 26.7 - 34.0 pg [facility] MCHC (RBC) [Mass/Vol] 33.4 g/dL 29.9 - 35.2 g/dL [facility] MCV (RBC) [Entitic vol] 95.7 fL 81.0 - 99.0 fL [facility] MONOCYTES ABSOLUTE AUTO 0.5 [facility] Monocytes/100 WBC (Bld) 6.5 % 1.7 - 12.0 % [facility] NEUTROPHILS ABSOLUTE AUTO 5.1 [facility] Neutrophils/100 WBC (Bld) 62.8 % 43.0 - 75.0 % [facility] Platelet mean volume (Bld) [Entitic vol] 12 fL 9.5 - 13.5 fL [facility] TBH EO # 0.1 [facility] PLT 194 [facility] TB RBC 3.69 [facility] WBC 8.2 [facility] No Panel Informationon 02-13 [facility] Rubella IGG immune statuson 02-14-2024 Rubella immune IgG immune [facility] Syphilis Total(Unknown Syphi lis Status)Ordered By: Rachelle Arredondo on 02-14-2024 Syphilis Non-Reactive [facility] BASIC METABOLIC PANLon 01-25 Anion gap [Moles/Vol] 9 mmol/L Normal 5-15 [facility] Comment on above: Performed By: #### C BREANNA, 2131-10, LIVR, BMP, 74341-4, 1987-06, 92190-7 #### [facility] ([id number]) [address] [place] [address], [place] [address] #### THMET #### [facility] ([id number]) [address] [place] [address], Calcium [Mass/Vol] 8.6 mg/dL Normal 8.5-10.5 [facility] Comment on above: Performed By: #### C BREANNA, 2131-10, LIVR, BMP, 40618-6, 1987-06, 26594-6 #### [facility] ([id number]) [address] [place] [address], [place] [address] #### THMET #### [facility] [place] ([id number]) [address] [place] [address], Chloride [Moles/Vol] 104 mmol/L Normal 98-109 [facility] Comment on above: Performed By: #### C BC, 2131-10, LIVR, BMP, 44251-4, 1987-06, 22093-2 #### [facility] ([id number]) [address] [place] [address], [address] [address] #### THMET #### [facility] [place] ([id number]) [address] [place] [address], CO2 [Moles/Vol] 21 mmol/L Low 22-32 [facility] Comment on above: Performed By: #### C BC, 2131-10, LIVR, BMP, 63668-6, 1987-06, 81701-0 #### [facility] ([id number]) [address] [place] [address] #### THMET #### [facility] [place] ([id number]) [address] [place] [address], Creatinine [Mass/Vol] 0.56 mg/dL Normal 0.40-1.00 [facility] Comment on above: Result Comment: METH OD TRACEABLE TO IDMS STANDARD Performed By: #### C BREANNA, 2131-10, LIVR, BMP, 78126-6, 1987-06, 24764-0 #### [facility] ([id number]) [address] [place] [address], [address] [address] #### THMET #### [facility] [place] ([id number]) [address] [place] [address], eGFR (CKD-EPI) NON-RACE DEPENDENT >90 Normal >59 [facility] Comment on above: Result Comment: Reported eGFR is based on the CKD-EPI 2020 equation that does not use a race coefficient. Performed By: #### C BC, 2131-10, LIVR, BMP, 54344-5, 1987-06, 66044-4 #### [facility] ([id number]) [address] [place] [address], [address] [address] #### THMET #### [facility] ([id number]) [address] [facility], Glucose [Mass/Vol] 73 mg/dL Normal 65-99 [facility] Comment on above: Performed By: #### Elizabeth CARLOS, 2131-10, LIVR, BMP, 01312-8, 1987-06, 39400-0 #### [facility] ([id number]) [address] [place] [address], [address] [place] [address] #### THMET #### [facility] [place] ([id number]) [address] [facility], Potassium [Moles/Vol] 3.8 mmol/L Normal 3.5-5.0 [facility] Comment on above: Performed By: #### Elizabeth CARLOS, 2131-10, LIVR, BMP, 17591-3, 1987-06, 90200-7 #### [facility] ([id number]) [address] [place] [address], [address] [place] [address] #### THMET #### [facility] [place] ([id number]) [address] [place] [address], Sodium [Moles/Vol] 134 mmol/L Normal 134-146 [facility] Comment on above: Performed By: #### Elizabeth CARLOS, 2131-10, LIVR, BMP, 24265-8, 1987-06, 40145-4 #### [facility] ([id number]) [address] [place] [address], [address] [place] [address] #### THMET #### [facility] [place] ([id number]) [address] [place] [address], Urea nitrogen [Mass/Vol] 6 mg/dL Normal 5-23 [facility] Comment on above: Performed By: #### Elizabeth CARLOS, 2131-10, LIVR, BMP, 65411-1, 1987-06, 21357-2 #### [facility] ([id number]) [address] [place] [address], [address] [place] [address] #### THMET #### [facility] [place] ([id number]) [address] [facility], COMPLETE BLOOD COUNTon 01-25 Erythrocyte distribution width (RBC) [Ratio] 13.7 % Normal 11.5-15.0 [facility] Comment on above: Performed By: #### Elizabeth CARLOS, 2131-10, LIVR, BMP, 88037-3, 1987-06, 97581-0 #### [facility] ([id number]) [address] [place] [address], [address] [place] [address] #### THMET #### [facility] ([id number]) [address] [place] [address], Hematocrit (Bld) [Volume fraction] 38.5 % Normal 35-47 [facility] Comment on above: Performed By: #### C BREANNA, 2131-10, LIVR, BMP, 36151-4, 1987-06, 28710-9 #### [facility] ([id number]) [address] [place] [address], [address] [place] [address] #### THMET #### [facility] ([id number]) [address] [place] [address], Hemoglobin (Bld) [Mass/Vol] 12.8 g/dL Normal 11.7-15.5 [facility] Comment on above: Performed By: #### Elizabeth CARLOS, 2131-10, LIVR, BMP, 90801-5, 1987-06, 16813-2 #### [facility] ([id number]) [address] [place] [address], [address] [place] [address] #### THMET #### [facility] [place] ([id number]) [address] [place] [address], MCH (RBC) [Entitic mass] 32.5 pg Normal 27-34 [facility] Comment on above: Performed By: #### C BREANNA, 2131-10, LIVR, BMP, 71808-6, 1987-06, 88013-4 #### [facility] ([id number]) [address] [place] [address], [address] [place] [address] #### THMET #### [facility] [place] ([id number]) [facility], MCHC (RBC) [Mass/Vol] 33.3 g/dL Normal 32-36 [facility] Comment on above: Performed By: #### C BREANNA, 2131-10, LIVR, BMP, 31686-5, 1987-06, 72247-5 #### [facility] ([id number]) [address] [place] [address] #### THMET #### [facility] [place] ([id number]) [address] [place] [address], MCV (RBC) [Entitic vol] 98 fL Normal 80-100 [facility] Comment on above: Performed By: #### C BREANNA, 2131-10, LIVR, BMP, 12659-9, 1987-06, 70065-0 #### [facility] ([id number]) [address] [place] [address], [place] [address] #### THMET #### [facility] [place] ([id number]) [address] [place] [address], Platelet mean volume (Bld) [Entitic vol] 11.2 fL Normal 7-12 [facility] Comment on above: Performed By: #### C BREANNA, 2131-10, LIVR, BMP, 02692-0, 1987-06, 01386-0 #### [facility] ([id number]) [address] [place] [address], [place] [address] #### THMET #### [facility] [place] ([id number]) [address] [place] [address], Platelets (Bld) [#/Vol] 108 10*3/uL Low 150-450 [facility] Comment on above: Performed By: #### C BREANNA, 2131-10, LIVR, BMP, 63210-3, 1987-06, 16374-3 #### [facility] ([id number]) [address] [place] [address], [address] [place] [address] #### THMET #### [facility] [place] ([id number]) [address] [place] [address], RBC COUNT 3.95 X10E12/L Normal 3.80-5.20 [facility] Comment on above: Performed By: #### C BC, 2131-10, LIVR, BMP, 45898-9, 1987-06, 05312-0 #### [facility] ([id number]) [address] [place] [address], [place] [address] #### THMET #### [facility] [place] ([id number]) [address] [place] [address], WBC (Bld) [#/Vol] 7.2 10*3/uL Normal 4.0-11.0 [facility] Comment on above: Performed By: #### C BREANNA, 2131-10, LIVR, BMP, 77013-2, 1987-06, 87413-8 #### [facility] ([id number]) [address] [place] [address], [address] [place] [address] #### THMET #### [facility] [place] ([id number]) [address] [place] [address], CRP [Mass/Vol]on 01-26-2024 C REACTIVE PROTEIN 0.7 mg/dL Normal 0.000-0.744 [facility] Comment on above: Performed By: #### C BREANNA, 2131-10, LIVR, BMP, 52596-7, 1987-06, 03140-1 #### [facility] ([id number]) [address] [place] [address], [address] [place] [id number] #### THMET #### [facility] ([id number]) [address] [place] [address], ESR Photometric method (Bld) [Velocity]on 01-26-2024 ESR, ERYTHROCYTE SEDIMENTATION RATE 1 mm/h Normal 0-20 [facility] Comment on above: Performed By: #### C BREANNA, 2131-10, LIVR, BMP, 20031-9, 1987-06, 57281-3 #### [facility] ([id number]) [address] [place] [address], [address] [place] [address] #### THMET #### [facility] [place] ([id number]) [address] [place] [address], LIVER PANELon 01-26-2024 Albumin [Mass/Vol] 3.7 g/dL Normal 3.2-5.3 [facility] Comment on above: Performed By: #### C BREANNA, 2131-10, LIVR, BMP, 04328-4, 1987-06, 88453-1 #### [facility] ([id number]) [address] [place] [address], [address] [place] [address] #### THMET #### [facility] [place] ([id number]) [address] [place] [address], ALP [Catalytic activity/Vol] 29 U/L Low 39-130 [facility] Comment on above: Performed By: #### Elizabeth CARLOS, 2131-10, LIVR, BMP, 86335-5, 1987-06, 14684-4 #### [facility] ([id number]) [address] [place] [address], [address] [place] [address] #### THMET #### [facility] [place] ([id number]) [address] [place] [address], ALT [Catalytic activity/Vol] 8 U/L Normal 0-31 [facility] Comment on above: Performed By: #### Elizabeth CARLOS, 2131-10, LIVR, BMP, 40424-1, 1987-06, 54207-8 #### [facility] ([id number]) [address] [place] [address], [address] [place] [address] #### THMET #### [facility] [place] ([id number]) [address] [place] [address], AST [Catalytic activity/Vol] 19 U/L Normal 0-41 [facility] Comment on above: Performed By: #### C BREANNA, 2131-10, LIVR, BMP, 76083-9, 1987-06, 84747-2 #### [facility] ([id number]) [address] [place] [address], [address] [place] [address] #### THMET #### [facility] [place] ([id number]) [address] [place] [address], Bilirubin [Mass/Vol] 0.4 mg/dL Normal 0.3-1.2 [facility] Comment on above: Performed By: #### C BREANNA, 2131-10, LIVR, BMP, 16185-9, 1987-06, 56375-2 #### [facility] ([id number]) [address] [place] [address], [address] [place] [address] #### THMET #### [facility] [place] ([id number]) [address] [place] [address], Bilirubin.direct [Mass/Vol] 0.1 mg/dL Normal 0.0-0.4 [facility] Comment on above: Performed By: #### Elizabeth CARLOS, 2131-10, LIVR, BMP, 49391-2, 1987-06, 21643-6 #### [facility] ([id number]) [address] [place] [address], [address] [place] [address] #### THMET #### [facility] [place] ([id number]) [address] [place] [address], Protein [Mass/Vol] 7.0 g/dL Normal 6.0-8.0 [facility] Comment on above: Performed By: #### C BREANNA, 2131-10, LIVR, BMP, 88260-8, 1987-06, 98744-8 #### [facility] ([id number]) [address], [address] [place] [address] #### THMET #### [facility] ([id number]) [address] [facility], THIOPURINE METABOLITESon 6 THIOGUANINE Not performed Normal [facility] Comment on above: Result Comment: NOTE Thiopurine Metabolites, B was cancelled on 02/02/2024 at 16:27; Quantity not sufficient to test. Test Performed by: [facility] [address] [place] [address] Sausage Maker: Celi Fernandez Ph.D.; CLIA# [id number] Performed By: #### 2 276-4, CBCA, FEPR #### [facility] ([id number]) [address] [facility] [place] [id number] VITAMIN B12on 01-26-2024 Cobalamin (Vitamin B12) [Mass/Vol] 239 pg/mL Normal 180-914 [facility] Comment on above: Performed By: #### C BC, 2132-9, LIVR, BMP, 98401-0, 1987-06, 52909-7 #### [facility] ([id number]) [address], [address] [place] [address] #### THMET #### [facility] ([id number]) [address] [place] [address], Vitamin D+Metabolites [Mass/ Vol]on 01-26-2024 VITAMIN D 25 HYD TOT 10.1 ng/mL Low 30-100 [facility] Comment on above: Result Comment: Vitamin D status 25 [place] Vitamin D Deficiency <20 ng/mL Insufficiency 20-29 ng/mL Sufficiency 30-100 ng/mL Toxicity >100 ng/mL NOTE: A pediatric reference range has not been established by the criminal justice department chair of this kit. The [place] [employer] recommends a Vitamin D level of = or >20ng/mL in infants and children. Performed By: #### 2 276-4, CBCA, FEPR #### [facility] ([id number]) [address], [address] [place] [address] HCG ( test) Ql (U)o n 01-23-2024 Interpretation and review of laboratory results Abnormal [facility] Preg Test, Ur Positive Negative [facility] Urinalysis macro (dipstick) panel (U)on 01-23-2024 Bilirubin, UA Negative Negative - 4(70) +++ mg/dL [facility] Blood, UA Positive Negative - 50 Enrrique/mcL [facility] Clarity, UA Clear [facility] Color, UA Yellow [facility] Glucose, UA Negative Negative - 2000(110) ++++ mg/dL [facility] Interpretation and review of laboratory results Abnormal [facility] Ketones, UA Positive Negative - 160(16) ++++ mg/dL [facility] Leukocytes, UA Negative Negative - 500+++ Cam/mcL [facility] Nitrite, UA Negative Negative - Positive [facility] pH, UA 7 5 - 9 [facility] Protein, UA Trace Negative - 2000(20) ++++ mg/dL [facility] Spec Grav, UA 1.015 1 - 1.03 [facility] Urobilinogen, UA 1.0 0.2 - 12 mg/dL [facility] KAY FECAL OCCULT BLDon 01-02 Hemoglobin.gastrointe stinal Ql (Stl) Negative Normal NEG [facility] Comment on above: Performed By: #### 2 335-8 #### [facility] ([id number]) [address] [place] [address], [place] [address] CBC AND AUTO DIFFon 12-01-19 ABSOLUTE BASOPHIL 0.0 X10E9/L Normal 0.0-0.2 [facility] Comment on above: Performed By: #### C BCA, FEPR, 2276-4 #### [facility] ([id number]) [address] [facility] [address] [facility], [address] [place] [address] ABSOLUTE NEUTROPHIL 1.9 X10E9/L Normal 1.5-6.6 [facility] Comment on above: Performed By: #### Elizabeth ARROYO FEPR, 6-4 #### [facility] ([id number]) [address], [address] [place] [address] Basophils/100 WBC (Bld) 0.5 % Normal [facility] Comment on above: Performed By: #### C CRUZ, FEPR, 2275-05 #### [facility] ([id number]) [address], [address] [place] [address] Eosinophils (Bld) [#/Vol] 0.1 10*3/uL Normal 0.0-0.4 [facility] Comment on above: Performed By: #### Elizabeth ARROYO, FEPR, 2275-4 #### [facility] ([id number]) [address], [address] [place] [address] Eosinophils/100 WBC (Bld) 2.3 % Normal [facility] Comment on above: Performed By: #### Elizabeth ARROYO, FEPR, 4 #### [facility] ([id number]) [address], [address] [place] [address] Erythrocyte distribution width (RBC) [Ratio] 13.3 % Normal 11.5-15.0 [facility] Comment on above: Performed By: #### Elizabeth ARROYO, FEPR, 2275-05 #### [facility] ([id number]) [address], [address] [place] [address] Hematocrit (Bld) [Volume fraction] 36.2 % Normal 35-47 [facility] Comment on above: Performed By: #### Elizabeth ARROYO, FEPR, 4 #### [facility] ([id number]) [address], [address] [place] [address] Hemoglobin (Bld) [Mass/Vol] 12.8 g/dL Normal 11.7-15.5 [facility] Comment on above: Performed By: #### Elizabeth ARROYO FEPR, 2275-4 #### [facility] ([id number]) [address], [address] [place] [address] Lymphocytes (Bld) [#/Vol] 2.3 10*3/uL Normal 1.0-3.5 [facility] Comment on above: Performed By: #### Elizabeth ARROYO FEPR, 2275-4 #### [facility] ([id number]) [address], [facility] [address] [place] [address] Lymphocytes/100 WBC (Bld) 47.4 % Normal [facility] Comment on above: Performed By: #### Elizabeth ARROYO FEPR, 2275-4 #### [facility] ([id number]) [address], [address] [place] [address] MCH (RBC) [Entitic mass] 33.2 pg Normal 27-34 [facility] Comment on above: Performed By: #### Elizabeth ARROYO, FEPR, 2275-4 #### [facility] ([id number]) [address], [address] [place] [address] MCHC (RBC) [Mass/Vol] 35.5 g/dL Normal 32-36 [facility] Comment on above: Performed By: #### Elizabeth ARROYO FEPR, 2275-4 #### [facility] ([id number]) [address], [address] [place] [address] MCV (RBC) [Entitic vol] 94 fL Normal 80-100 [facility] Comment on above: Performed By: #### Elizabeth ARROYO, FEPR, 4 #### [facility] ([id number]) [address], [address] [place] [address] Monocytes (Bld) [#/Vol] 0.4 10*3/uL Normal 0-0.9 [facility] Comment on above: Performed By: #### C BCA, FEPR, 6-4 #### [facility] ([id number]) [address], [address] [place] [address] Monocytes/100 WBC (Bld) 9.1 % Normal [facility] Comment on above: Performed By: #### C BCA, FEPR, 2275-4 #### [facility] ([id number]) [address], [address] [place] [address] Neutrophils/100 WBC (Bld) 40.7 % Normal [facility] Comment on above: Performed By: #### C BCA, FEPR, 2275- #### [facility] ([id number]) [address] [place] [address] Platelet mean volume (Bld) [Entitic vol] 11.1 fL Normal 7-12 [facility] Comment on above: Performed By: #### Elizabeth BCA, FEPR, 2275- #### [facility] ([id number]) [address] [place] [address] Platelets (Bld) [#/Vol] 187 10*3/uL Normal 150-450 [facility] Comment on above: Performed By: #### Elizabeth BCA, FEPR, 2275-4 #### [facility] ([id number]) [address], [address] [place] [address] RBC COUNT 3.87 X10E12/L Normal 3.80-5.20 [facility] Comment on above: Performed By: #### C BCA, FEPR, 2275-4 #### [facility] ([id number]) [address], [address] [place] [address] WBC (Bld) [#/Vol] 4.8 10*3/uL Normal 4.0-11.0 [facility] Comment on above: Performed By: #### Elizabeth BCA, FEPR, 6-4 #### [facility] ([id number]) [address], [address] [place] [address] FERRITINon 12-01-2023 Ferritin [Mass/Vol] 12 ng/mL Normal 11-307 [facility] Comment on above: Performed By: #### C BCA, FEPR, 6-4 #### [facility] ([id number]) [address], [address] [place] [address] IRON PROFILEon 12-01-2023 Iron [Mass/Vol] 74 ug/dL Normal 50-170 [facility] Comment on above: Performed By: #### C BCA, FEPR, 6-4 #### [facility] ([id number]) [address], [address] [address] IRON BINDING 344 ug/dL Normal 250-425 [facility] Comment on above: Performed By: #### C BCA, FEPR, 6-4 #### [facility] ([id number]) [address], [address] [address] IRON SATURATION 21 % SATURATION Normal 15-50 [facility] Comment on above: Performed By: #### C BCA, FEPR, 6-4 #### [facility] ([id number]) [address] [address] CBC AND AUTO DIFFon 24-20 24 ABSOLUTE BASOPHIL 0.0 X10E9/L Normal 0.0-0.2 [facility] Comment on above: Performed By: #### 2 276-4, CBCA, FEPR #### [facility] ([id number]) [address], [address] [address] ABSOLUTE NEUTROPHIL 2.7 X10E9/L Normal 1.5-6.6 [facility] Comment on above: Performed By: #### 2 276-4, CBCA, FEPR #### [facility] ([id number]) [address], [address] [place] [address] Basophils/100 WBC (Bld) 0.4 % Normal [facility] Comment on above: Performed By: #### 2 276-4, CBCA, FEPR #### [facility] ([id number]) [address], [facility] [address] [place] [address] Eosinophils (Bld) [#/Vol] 0.1 10*3/uL Normal 0.0-0.4 [facility] Comment on above: Performed By: #### 2 276-4, CBCA, FEPR #### [facility] ([id number]) [address], [facility] [address] [place] [address] Eosinophils/100 WBC (Bld) 2.0 % Normal [facility] Comment on above: Performed By: #### 2 276-4, CBCA, FEPR #### [facility] ([id number]) [address], [facility] [address] [place] [address] Erythrocyte distribution width (RBC) [Ratio] 13.5 % Normal 11.5-15.0 [facility] Comment on above: Performed By: #### 2 276-4, CBCA, FEPR #### [facility] ([id number]) [address], [facility] [address] [place] [address] Hematocrit (Bld) [Volume fraction] 35.2 % Normal 35-47 [facility] Comment on above: Performed By: #### 2 276-4, CBCA, FEPR #### [facility] ([id number]) [address], [facility] [address] [place] [address] Hemoglobin (Bld) [Mass/Vol] 12.2 g/dL Normal 11.7-15.5 [facility] Comment on above: Performed By: #### 2 276-4, CBCA, FEPR #### [facility] ([id number]) [address], [address] [place] [address] Lymphocytes (Bld) [#/Vol] 1.9 10*3/uL Normal 1.0-3.5 [facility] Comment on above: Performed By: #### 2 276-4, CBCA, FEPR #### [facility] ([id number]) [address], [facility] [address] [place] [address] Lymphocytes/100 WBC (Bld) 36.8 % Normal [facility] Comment on above: Performed By: #### 2 276-4, CBCA, FEPR #### [facility] ([id number]) [address], [facility] [address] [place] [address] MCH (RBC) [Entitic mass] 31.9 pg Normal 27-34 [facility] Comment on above: Performed By: #### 2 276-4, CBCA, FEPR #### [facility] ([id number]) [address], [facility] [address] [place] [address] MCHC (RBC) [Mass/Vol] 34.5 g/dL Normal 32-36 [facility] Comment on above: Performed By: #### 2 276-4, CBCA, FEPR #### [facility] ([id number]) [address] [address] MCV (RBC) [Entitic vol] 93 fL Normal 80-100 [facility] Comment on above: Performed By: #### 2 276-4, CBCA, FEPR #### [facility] ([id number]) [address], [facility] [address] [place] [address] Monocytes (Bld) [#/Vol] 0.4 10*3/uL Normal 0-0.9 [facility] Comment on above: Performed By: #### 2 276-4, CBCA, FEPR #### [facility] ([id number]) [address], [address] [place] [address] Monocytes/100 WBC (Bld) 8.3 % Normal [facility] Comment on above: Performed By: #### 2 276-4, CBCA, FEPR #### [facility] ([id number]) [address], [facility] [address] [place] [address] Neutrophils/100 WBC (Bld) 52.5 % Normal [facility] Comment on above: Performed By: #### 2 276-4, CBCA, FEPR #### [facility] ([id number]) [address], [address] [address] Platelet mean volume (Bld) [Entitic vol] 10.7 fL Normal 7-12 [facility] Comment on above: Performed By: #### 2 276-4, CBCA, FEPR #### [facility] ([id number]) [address], [address] [address] Platelets (Bld) [#/Vol] 198 10*3/uL Normal 150-450 [facility] Comment on above: Performed By: #### 2 276-4, CBCA, FEPR #### [facility] ([id number]) [address] [address] RBC COUNT 3.81 X10E12/L Normal 3.80-5.20 [facility] Comment on above: Performed By: #### 2 276-4, CBCA, FEPR #### [facility] ([id number]) [address] [address] WBC (Bld) [#/Vol] 5.2 10*3/uL Normal 4.0-11.0 [facility] Comment on above: Performed By: #### 2 276-4, CBCA, FEPR #### [facility] ([id number]) [address], [facility] [address] [place] [address] FERRITINon 08-04-2023 Ferritin [Mass/Vol] 27 ng/mL Normal 11-307 [facility] Comment on above: Performed By: #### 2 276-4, CBCA, FEPR #### [facility] ([id number]) [address], [address] [place] [address] IRON PROFILEon 08-04-2023 Iron [Mass/Vol] 46 ug/dL Low 50-170 [facility] Comment on above: Performed By: #### 2 276-4, CBCA, FEPR #### [facility] ([id number]) [address] [place] [address] IRON BINDING 273 ug/dL Normal 250-425 [facility] Comment on above: Performed By: #### 2 276-4, CBCA, FEPR #### [facility] ([id number]) [address], [address] [place] [address] IRON SATURATION 17 % SATURATION Normal 15-50 [facility] Comment on above: Performed By: #### 2 276-4, CBCA, FEPR #### [facility] ([id number]) [address] [place] [address] M. tuberculosis stim IFN-g p carrillo (Bld)on 08-04-2023 Mitogen minus Nil Result 9.92 IU/mL Normal [facility] Comment on above: Performed By: #### 7 1775-1 #### [employer] [facility] ([id number]) [address] [place] [address], Nil Result 0.08 IU/mL Normal [facility] Comment on above: Result Comment: NOTE Test Performed by: [facility] [address] [place] [address] Sausage Maker: Celi Fernandez Ph.D.; CLIA# [id number] Performed By: #### 7 1775-1 #### [employer] [facility] ([id number]) [address] [place] [address], QuantiFERON-Tb Gold Plus Result Negative Normal Negative [facility] Comment on above: Result Comment: NOTE [...] IU/mL. Performed By: #### 7 1775-1 #### [facility] ([id number]) [address] [place] [address], TB1 Ag minus Nil Result 0.09 IU/mL Normal [facility] Comment on above: Performed By: #### 7 1775-1 #### [facility] ([id number]) [address] [place] [address], TB2 Ag minus Nil Result 0.01 IU/mL Normal [facility] Comment on above: Performed By: #### 7 1775-1 #### [facility] ([id number]) [address] [place] [address] ACOG PANEL 2: 30 to 65on 05-07-2022 . . Normal [facility] Comment on above: Result Comment: Perf ormed at: WB Performed By: #### 4 152082 #### [facility] [address] [place] [address] Dr. Bisi Glass Age Gdln ACOG Testing 30-65 [facility] Comment on above: Performed By: #### 4 [id number] #### [facility] [address] [address] [address] Bisi Glass DIAGNOSIS: Comment [facility] Comment on above: Result Comment: NEGA TIVE FOR INTRAEPITHELIAL LESION OR MALIGNANCY. Performed at: WB Performed By: #### 4 762550 #### [facility] [address] [place] [address] Dr. Bisi Glass HPV Aptima Negative Normal Negative [facility] Comment on above: Result Comment: This nucleic acid amplification test detects fourteen high-risk HPV types (16,18,31,33,35,39,45,51,52,56,58,59,66,68) without differentiation. Performed at: =G Performed By: #### 4 404655 #### [facility] [address] [place] [address] Dr. Bisi Glass HPV Genotype Reflex Comment Normal [facility] Comment on above: Result Comment: Crit eria not met, HPV Genotype not performed. Performed at: WB Performed By: #### 4 306341 #### [facility] [address] [place] [address] Dr. Bisi Glass Methodology: Comment Normal [facility] Comment on above: Result Comment: This liquid based ThinPrep(R) pap test was screened with the use of an image guided system. Performed at: WB Performed By: #### 4 [id number] #### [facility] [address] [place] [address] Dr. Bisi Glass Note: Comment Normal [facility] Comment on above: Result Comment: The Pap smear is a screening test designed to aid in the detection of premalignant and malignant conditions of the uterine cervix. It is not a diagnostic procedure and should not be used as the sole means of detecting cervical cancer. Both false-positive and false-negative reports do occur. . Performed at: WB Performed By: #### 4 480394 #### [facility] [address] [place] [address] Dr. Bisi Glass Performed by: Comment Normal [facility] Comment on above: Result Comment: Ngozi Hamlin, Weaving Machine Operator (ASCP) Performed at: WB Performed By: #### 4 176206 #### [facility] [address] [place] [address] Dr. Bisi Glass Specimen adequacy: Comment Normal [facility] Comment on above: Result Comment: Sati sfactory for evaluation. Endocervical and/or squamous metaplastic cells (endocervical component) are present. Performed at: WB Performed By: #### 4 515015 #### [facility] [address] [address] [address] Bisi Vasquez 02-11-2017 [facility] Letter TextNortjulieta [facility] Hospitaly[address] [place], [place] [address]Cfemz: [phone]: [facility] [place], [place] [address]Pmjty: [phone]: [facility]walk[address] [place], [place] [address]Mdjau: [phone]: Toll Free: [phone] [email or web address] cancer Raza Roldan M.D., Jhon Mora M.D.Barry Camarena M.D.Samara Hernandez D.O..Oksana Benson M.D.Jarod Stovall M.D.February 11, [address] [address]Hcol Ms. Storey,You missed your scheduled appointment on Saturday February 11, 2017. Pleasecall our office to reschedule. If you need to cancel any futureappointments, please call to give us 24 hour notice so that we can offer yourappointment to another patient.Sincerely,Brando Carvajal. Normal [facility] HOSP 12-03-2016 HOSP Infusion Center (HEMTCL) JUAN LUIS STOREY ([id number]) 1990 [facility] Time Provider Nazluzwswd98/24/17 1:00 PM CHAIR 1 JOSE HEMTCL During your visit today, we recorded the following information about you: Temperature Pulse Respiration Blood pressure 98.9 degrees 76/minute 18/minute 97/64Referring Provider: SAMARA HERNANDEZ [[id number]]Allergies As of Date: 12/03/2016(No Known Allergies)Date Reviewed: 12/03/2016Reviewed by: Kristi (Rn) JAD Partida - Fully AssessedPrimary Visit Diagnosis:Anemia, unspecified type [D64.9]Order(s):TREATMEN T PARAMETER-NOT NEEDED [9990217] Order #: [id number]: 1 HEMONC NURSING COMMUNICATION [9990214] Order #: [id number]: 1 STANDING HEMONC NURSING COMMUNICATION [9990214] Order #: [id number]: 1 STANDING HEMONC NURSING COMMUNICATION [9990214] Order #: [id number]: 1 STANDING HEMONC NURSING COMMUNICATION [9990214] Order #: [id number]: 1 STANDING HEMONC NURSING COMMUNICATION [9990214] Order #: [id number]: 1 STANDING HEMONC NURSING COMMUNICATION [9990214] Order #: [id number]: 1 STANDING [] iron sucrose 200 mg [...] (1 ML) INJECTION* 12/03/2016 Route: INTRAMUSCULAEncounter Number: [id number] Status:Closed by KRISTI PARTIDA on 12/03/16 [facility] CNOVSPon 11-19-2016 CNOVSP Visit (SP) Office (HEMACL) JUAN LUIS STOREY ([id number]) 1990 FDate Time Provider Clvvcbnawh74/10/17 11:00 AM SAMARA HERNANDEZ HEMACL During your visit today, we recorded the following information about you: Temperature Pulse Respiration Blood pressure 97.8 degrees 78/minute 18/minute 96/61 Weight Height 59.6 kg 1.632 Clara Berger 11/19/2016 11:15 AM SignedPatient states feeling more fatigue.Samara Hernandez DO 11/23/2016 9:43 AM SignedPATIENT NAME: Juan Luis Richey RaleighMRN: [id number] PHYSICIAN: IFTIKHAR RAZO[address] [place], [place] [address]PRIMARY CARE PHYSICIAN: Iftikhar RazoOTHER PHYSICIANS:CHIEF COMPLAINT: Anemia, [...] PRESENT ILLNESS: This is a 26year old -Omani femaleCBC from 05/22/16 reveals white blood cell [...] her second kid in dec 2014.Works a [employer].June 04, 2016Eats a bag of ice per [...] I answered all questions satisfactorily..Mariano Hernandez D.O.Medical OncologistWest [place], [place]Referring Provider: SAMARA HERNANDEZ [[id number]]Allergies As of Date: 11/19/2016(No Known Allergies)Date Reviewed: [...] BUPROPION XL 150 MG TAB >> May Berger 11/19/2016 11:15 AM >> AB MayNov 19, 2016 11:15 AM Received from: External Pharmacy HYDROXYZINE HCL 50 MG TABLET >> May Berger 11/19/2016 11:15 AM >> AB MayNov 19, 2016 11:15 AM Received from: External PharmacyProblem List As Of Date 11/19/2016 Noted Resolved Anemia [D64.9] INVALID FOR*Visit Notes:>> May Ab FriNov 19, 2016 11:15 AM Status: SignedPatient states feeling more fatigue.Encounter Status:Closed by SAMARA HERNANDEZ DO on 11/23/16 Normal [facility] PROGRESSon 11-19-2016 PROGRESS HNO ID: [id number]: Samara HernandezService: (none)Author Type: PhysicianType: Progress NotesFiled: 11/23/2016 9:43 AMNote Text:PATIENT NAME: Juan Luis StoreyMRN: [id number] PHYSICIAN: IFTIKHAR RAZO[address] [place], [place] [address]PRIMARY CARE PHYSICIAN: Iftikhar RazoOTHER PHYSICIANS:CHIEF COMPLAINT: Anemia, [...] PRESENT ILLNESS: This is a 26year old -Omani femaleCBC from 05/22/16 reveals white blood cell [...] her second kid in dec 2014.Works a [employer] service.June 04, 2016Eats a bag of [...] I answered all questions satisfactorily..Mariano Hernandez D.O.Medical OncologistWest [place], [place] Normal [facility] Remote CBCDIF (for [facility] use o nly)on 11-19-2016 Abs Baso 0.02 k/uL Normal <0.11 [facility] Abs [place] 0.40 k/uL Normal 0.00-0.86 [facility] Abs Neut 3.13 k/uL Normal 1.45-7.50 [facility] Basophils/100 WBC Auto (Bld) 0.4 % Normal [facility] Eosinophils 0.05 10*3/uL Normal <0.46 [facility] Eosinophils/100 leukocytes 0.9 % Normal [facility] Erythrocyte distribution width Auto Ratio (RBC) 13.5 % Normal 11.5-15.0 [facility] Erythrocytes (RBC) 3.87 10*6/uL Low 3.90-5.20 [facility] Hematocrit (HCT) 33.0 % Low 36.0-46.0 [facility] Hemoglobin mass conc (Bld) 10.5 g/dL Low 11.5-15.5 [facility] Lymphocytes 1.70 10*3/uL Normal 1.00-4.00 [facility] Lymphocytes/100 leukocytes 32.1 % Normal [facility] MCH 27.1 pG Normal 26.0-34.0 [facility] MCHC mass conc (RBC) 31.8 g/dL Normal 30.5-36.0 [facility] MCV 85.3 fL Normal 80.0-100.0 [facility] Monocytes/100 leukocytes 7.5 % Normal [facility] Neutrophils/100 WBC Auto (Bld) 59.1 % Normal [facility] Platelet mean volume (PMV) 11.0 fL Normal 9.0-12.7 [facility] Platelets 288 10*3/uL Normal 150-400 [facility] WBC (Leukocytes) 5.30 10*3/uL Normal 3.70-11.00 [facility] Remote iSTAT BMP (for [facility] us e only)on 11-19-2016 Anion gap 11 mmol/L Normal 0-15 [facility] BUN (urea nitrogen) 12 mg/dL Normal 8-25 [facility] Chloride 105 mmol/L Normal 98-110 [facility] CO2 24 mmol/L Normal 23-32 [facility] Creatinine 0.70 mg/dL Normal 0.70-1.40 [facility] eGFR (non-black) mL/min/{1.73_m2} Normal [facility] Comment on [...] Glucose mass conc 79 mg/dL Normal 65-100 [facility] Ionized Calcium, WB 1.14 mmol/L Normal 1.08-1.30 [facility] Comment on above: Result Comment: Plea note: This value represents ionized calcium not total calcium. Potassium molar conc 4.0 mmol/L Normal 3.5-5.0 [facility] Sodium 140 mmol/L Normal 132-148 [facility] Ferritinon 10-29-2016 Ferritin 19.8 ng/mL Normal 14.7-205.1 [facility] Comment on above: Performed By: #### I CHERYL, FERR ####[facility] [address] [place], [place] [phone] Iron and TIBCon 10-29-2016 Iron 21 ug/dL Low 41-186 [facility] Comment on above: Performed By: #### I CHERYL, FERR ####[facility] [address] [address] [phone] TIBC 331 ug/dL Normal 232-386 [facility] Comment on above: Performed By: #### I CHERYL, FERR ####[facility] [place], [place] [phone] Transferrin Saturatn 6 % Low 15-57 [facility] Comment on above: Performed By: #### I CHERYL, FERR ####[facility] [address] [place], [place] [phone] Remote CBCDIF (for [facility] use o nly)on 10-29-2016 Abs Baso 0.02 k/uL Normal 0.00-0.10 [facility] Abs [place] 0.42 k/uL Normal 0.00-0.86 [facility] Abs Neut 3.06 k/uL Normal 1.45-7.50 [facility] Basophils/100 WBC Auto (Bld) 0.3 % Normal [facility] Eosinophils 0.11 10*3/uL Normal 0.00-0.45 [facility] Eosinophils/100 leukocytes 1.8 % Normal [facility] Erythrocyte distribution width Auto Ratio (RBC) 12.9 % Normal 11.5-15.0 [facility] Erythrocytes (RBC) 3.90 10*6/uL Normal 3.90-5.20 [facility] Hematocrit (HCT) 34.0 % Low 36.0-46.0 [facility] Hemoglobin mass conc (Bld) 10.8 g/dL Low 11.5-15.5 [facility] Lymphocytes 2.37 10*3/uL Normal 1.00-4.00 [facility] Lymphocytes/100 leukocytes 39.6 % Normal [facility] MCH 27.7 pG Normal 26.0-34.0 [facility] MCHC mass conc (RBC) 31.8 g/dL Normal 30.5-36.0 [facility] MCV 87.2 fL Normal 80.0-100.0 [facility] Monocytes/100 leukocytes 7.0 % Normal [facility] Neutrophils/100 WBC Auto (Bld) 51.3 % Normal [facility] Platelet mean volume (PMV) 10.8 fL Normal 9.0-12.7 [facility] Platelets 268 10*3/uL Normal 150-400 [facility] WBC (Leukocytes) 5.98 10*3/uL Normal 3.70-11.00 [facility] Remote iSTAT BMP (for [facility] us e only)on 10-29-2016 Anion gap 11 mmol/L Normal 0-15 [facility] BUN (urea nitrogen) 9 mg/dL Normal 8-25 [facility] Chloride 104 mmol/L Normal 98-110 [facility] CO2 26 mmol/L Normal 23-32 [facility] Creatinine 0.70 mg/dL Normal 0.70-1.40 [facility] eGFR (non-black) mL/min/{1.73_m2} Normal [facility] Comment on [...] Glucose mass conc 83 mg/dL Normal 65-100 [facility] Ionized Calcium, WB 1.16 mmol/L Normal 1.08-1.30 [facility] Comment on above: Result Comment: Plea se note: This value represents ionized calcium not total calcium. Potassium molar conc 3.8 mmol/L Normal 3.5-5.0 [facility] Sodium 141 mmol/L Normal 132-148 [facility] Ferritinon 10-01-2016 Ferritin 9.1 ng/mL Low 14.7-205.1 [facility] Comment on above: Performed By: #### I CHERYL, FERR ####[address] [address] [place], [place] [phone] Iron and TIBCon 10-01-2016 Iron 34 ug/dL Low 41-186 [facility] Comment on above: Performed By: #### Aditya LUNA, FERR ####[address] [address] [place], [place] [phone] TIBC 316 ug/dL Normal 232-386 [facility] Comment on above: Performed By: #### Aditya LUNA, FERR ####[address] [phone] Transferrin Saturatn 11 % Low 15-57 [facility] Comment on above: Performed By: #### Aditya LUNA, FERR ####[address] [phone] Remote CBCDIF (for [facility] use only)on 10-01-2016 Abs Baso 0.02 k/uL Normal 0.00-0.10 [facility] Abs [place] 0.53 k/uL Normal 0.00-0.86 [facility] Abs Neut 2.48 k/uL Normal 1.45-7.50 [facility] Basophils/100 WBC Auto (Bld) 0.4 % Normal [facility] [facility] Eosinophils 0.09 10*3/uL Normal 0.00-0.45 [facility] Eosinophils/100 leukocytes 1.6 % Normal [facility] Erythrocyte distribution width Auto Ratio (RBC) 13.7 % Normal 11.5-15.0 [facility] Erythrocytes (RBC) 3.85 10*6/uL Low 3.90-5.20 [facility] Hematocrit (HCT) 33.5 % Low 36.0-46.0 [facility] Hemoglobin mass conc (Bld) 10.7 g/dL Low 11.5-15.5 [facility] Lymphocytes 2.36 10*3/uL Normal 1.00-4.00 [facility] Lymphocytes/100 leukocytes 43.1 % Normal [facility] MCH 27.8 pG Normal 26.0-34.0 [facility] MCHC mass conc (RBC) 31.9 g/dL Normal 30.5-36.0 [facility] MCV 87.0 fL Normal 80.0-100.0 [facility] Monocytes/100 leukocytes 9.7 % Normal [facility] Neutrophils/100 WBC Auto (Bld) 45.2 % Normal [facility] Platelet mean volume (PMV) 10.8 fL Normal 9.0-12.7 [facility] Platelets 282 10*3/uL Normal 150-400 [facility] WBC (Leukocytes) 5.48 10*3/uL Normal 3.70-11.00 [facility] Remote iSTAT BMP (for [facility] us e only)on 10-01-2016 Anion gap 13 mmol/L Normal 0-15 [facility] BUN (urea nitrogen) 14 mg/dL Normal 8-25 [facility] Chloride 102 mmol/L Normal 98-110 [facility] CO2 24 mmol/L Normal 23-32 [facility] Creatinine 0.70 mg/dL Normal 0.70-1.40 [facility] eGFR (non-black) mL/min/{1.73_m2} Normal [facility] Comment on above: Result Comment: eGFR (Estimated [...] Glucose mass conc 93 mg/dL Normal 65-100 [facility] Ionized Calcium, WB 1.14 mmol/L Normal 1.08-1.30 [facility] Comment on above: Result Comment: Lore reyes note: This value represents ionized calcium not total calcium. Potassium molar conc 3.7 mmol/L Normal 3.5-5.0 [facility] Sodium 139 mmol/L Normal 132-148 [facility] Remote CBCDIF (for [facility] use o nly)on 08-29-2016 Abs Baso 0.02 k/uL Normal 0.00-0.10 [facility] Abs [place] 0.52 k/uL Normal 0.00-0.86 [facility] Abs Neut 3.37 k/uL Normal 1.45-7.50 [facility] Basophils/100 WBC Auto (Bld) 0.3 % Normal [facility] Eosinophils 0.10 10*3/uL Normal 0.00-0.45 [facility] Eosinophils/100 leukocytes 1.7 % Normal [facility] Erythrocyte distribution width Auto Ratio (RBC) 18.7 % High 11.5-15.0 [facility] Erythrocytes (RBC) 3.97 10*6/uL Normal 3.90-5.20 [facility] Hematocrit (HCT) 33.0 % Low 36.0-46.0 [facility] Hemoglobin mass conc (Bld) 10.5 g/dL Low 11.5-15.5 [facility] Lymphocytes 1.92 10*3/uL Normal 1.00-4.00 [facility] Lymphocytes/100 leukocytes 32.4 % Normal [facility] MCH 26.4 pG Normal 26.0-34.0 [facility] MCHC mass conc (RBC) 31.8 g/dL Normal 30.5-36.0 [facility] MCV 83.1 fL Normal 80.0-100.0 [facility] Monocytes/100 leukocytes 8.8 % Normal [facility] Neutrophils/100 WBC Auto (Bld) 56.8 % Normal [facility] Platelet mean volume (PMV) 10.0 fL Normal 9.0-12.7 [facility] Platelets 263 10*3/uL Normal 150-400 [facility] WBC (Leukocytes) 5.93 10*3/uL Normal 3.70-11.00 [facility] Remote iSTAT BMP (for [facility] us e only)on 08-29-2016 Anion gap 12 mmol/L Normal 0-15 [facility] BUN (urea nitrogen) 12 mg/dL Normal 8-25 [facility] Chloride 104 mmol/L Normal 98-110 [facility] CO2 24 mmol/L Normal 23-32 [facility] Creatinine 0.80 mg/dL Normal 0.70-1.40 [facility] eGFR (non-black) mL/min/{1.73_m2} Normal [facility] Comment on above: Result Comment: eGFR (Estimated [...] Glucose mass conc 91 mg/dL Normal 65-100 [facility] Ionized Calcium, WB 1.14 mmol/L Normal 1.08-1.30 [facility] Comment on above: Result Comment: Plea se note: This value represents ionized calcium not total calcium. Potassium molar conc 3.7 mmol/L Normal 3.5-5.0 [facility] Sodium 140 mmol/L Normal 132-148 [facility] Vital Signs Date Time Vital Sign Value Performing Clinician Facility 05-06-2024 09:41-0400 Body height 165.1 cm Raulito Jimenez DO Work Phone: [facility] [employer] 05-06-2024 09:41-0400 Body mass index (BMI) [Ratio] 31.62 kg/m2 Raulito Jimenez DO Work Phone: [facility] 05-06-2024 09:41-0400 Body temperature 98.2 [degF] Raulito Jimenez DO Work Phone: [facility] 05-06-2024 09:41-0400 Body weight 86.18 kg Raulito Jimenez DO Work Phone: [facility] 05-06-2024 09:41-0400 Diastolic blood pressure 78 mm[Hg] Raulito Jimenez DO Work Phone: [facility] 05-06-2024 09:41-0400 Heart rate 110 /min Raulito Jimenez DO Work Phone: [facility] [employer] 05-06-2024 09:41-0400 SaO2% (BldA) [Mass fraction] 98 % Raulito Jimenez DO Work Phone: [facility] 05-06-2024 09:41-0400 Systolic blood pressure 138 mm[Hg] Raulito Jimenez DO Work Phone: [facility] 04-26-2024 10:26-0400 Body mass index (BMI) [Ratio] 30.65 kg/m2 Parishchano Goodmano DO Work Phone: [facility] 04-26-2024 10:26-0400 Body weight 83.55 kg Parish Courtney DO Work Phone: [facility] 04-26-2024 10:26-0400 Diastolic blood pressure 76 mm[Hg] Parish Courtney DO Work Phone: [facility] 04-26-2024 10:26-0400 Systolic blood pressure 122 mm[Hg] Parish Courtney DO Work Phone: [facility] 04-19-2024 13:13-0400 Body temperature 99.19 [degF] [facility] 1 [facility] 04-19-2024 13:13-0400 Diastolic blood pressure 79 mm[Hg] [facility] 1 [facility] 04-19-2024 13:13-0400 Heart rate 96 /min [facility] 1 [facility] 04-19-2024 13:13-0400 Respiratory rate 20 /min [facility] 1 [facility] 04-19-2024 13:13-0400 Systolic blood pressure 116 mm[Hg] [facility] 1 [facility] 04-19-2024 10:41-0400 Body mass index (BMI) [Ratio] 30.63 kg/m2 W[facility] 1 [facility] 04-19-2024 10:41-0400 Body weight 83.5 kg Wl 1 [facility] 04-19-2024 09:53-0400 Body height 165.1 cm Sharda Montiel MD Work Phone: [facility] 04-19-2024 09:53-0400 Body mass index (BMI) [Ratio] 30.62 kg/m2 Sharda Montiel MD Work Phone: [facility] 04-19-2024 09:53-0400 Body weight 83.46 kg Sharda Montiel MD Work Phone: [facility] 04-19-2024 09:53-0400 Diastolic blood pressure 86 mm[Hg] Sharda Montiel MD Work Phone: [facility] 04-19-2024 09:53-0400 Systolic blood pressure 140 mm[Hg] Sharda Montiel MD Work Phone: [facility] 04-14-2024 14:33-0500 Body mass index (BMI) [Ratio] 30.42 kg/m2 Parish Courtney DO Work Phone: [facility] 04-14-2024 14:33-0500 Body weight 82.92 kg Parish Courtney DO Work Phone: [facility] 04-14-2024 14:33-0500 Diastolic blood pressure 72 mm[Hg] Parish Courtney DO Work Phone: [facility] 04-14-2024 14:33-0500 Systolic blood pressure 122 mm[Hg] Parish Courtney DO Work Phone: [facility] 03-17-2024 10:51-0500 Body mass index (BMI) [Ratio] 29.31 kg/m2 Yaquelin Horne SIMI Work Phone: [facility] 03-17-2024 10:51-0500 Body weight 79.89 kg Yaquelin Christiechanda BELCHER Work Phone: [facility] 03-17-2024 10:51-0500 Diastolic blood pressure 70 mm[Hg] Yaquelin Horne PA Work Phone: [facility] 03-17-2024 10:51-0500 Systolic blood pressure 116 mm[Hg] Yaquelin Horne PA Work Phone: [facility] 03-08-2024 12:30-0500 Body temperature 99.81 [degF] [facility] 1 [facility] 03-08-2024 12:30-0500 Diastolic blood pressure 69 mm[Hg] Wl 1 [facility] 03-08-2024 12:30-0500 Heart rate 103 /min [facility] 1 [facility] 03-08-2024 12:30-0500 Respiratory rate 18 /min [facility] 1 [facility] 03-08-2024 12:30-0500 Systolic blood pressure 109 mm[Hg] [facility] 1 [facility] 03-08-2024 10:10-0500 Body mass index (BMI) [Ratio] 29.62 kg/m2 [facility] 1 [facility] 03-08-2024 10:10-0500 Body weight 80.74 kg [facility] 1 [facility] 02-18-2024 11:43-0500 Body mass index (BMI) [Ratio] 29.29 kg/m2 Parish Courtney DO Work Phone: [facility] 02-18-2024 11:43-0500 Body weight 79.83 kg Parish Courtney DO Work Phone: [facility] 02-18-2024 11:43-0500 Diastolic blood pressure 72 mm[Hg] Parish Courtney DO Work Phone: [facility] 02-18-2024 11:43-0500 Systolic blood pressure 122 mm[Hg] Parish Courtney DO Work Phone: [facility] 12-12-2023 11:50-0400 Body temperature 98.91 [degF] [facility] 2 [facility] 12-12-2023 11:50-0400 Diastolic blood pressure 66 mm[Hg] [facility] 2 [facility] 12-12-2023 11:50-0400 Heart rate 92 /min [facility] 2 [facility] 12-12-2023 11:50-0400 Respiratory rate 18 /min [facility] 2 [facility] 12-12-2023 11:50-0400 Systolic blood pressure 100 mm[Hg] Wl 2 [facility] 12-12-2023 10:31-0400 Body mass index (BMI) [Ratio] 27.96 kg/m2 [facility] 2 [facility] 12-12-2023 10:31-0400 Body weight 76.2 kg Wl 2 [facility] 12-01-2023 14:25-0400 Body height 165.1 cm Dominique Josh HERNANDEZN-SHELF FILLER Work Phone: [facility] 12-01-2023 14:25-0400 Body mass index (BMI) [Ratio] 27.89 kg/m2 Dominique Josh ESTATE MANAGER-SHELF FILLER Work Phone: [facility] 12-01-2023 14:25-0400 Body temperature 98.8 [degF] Dominique Josh ESTATE MANAGER-SHELF FILLER Work Phone: [facility] 12-01-2023 14:25-0400 Body weight 76.02 kg Dominique Josh ESTATE MANAGER-SHELF FILLER Work Phone: [facility] 12-01-2023 14:25-0400 Diastolic blood pressure 76 mm[Hg] Dominique Josh [employer]HE[employer] FILLER Work Phone: [facility] 12-01-2023 14:25-0400 Heart rate 71 /min Dominique Josh ESTATE MANAGER-SHELF FILLER Work Phone: [facility] 12-01-2023 14:25-0400 Respiratory rate 16 /min Dominique Josh ESTATE MANAGER-SHELF FILLER Work Phone: [facility] 12-01-2023 14:25-0400 SaO2% (BldA) [Mass fraction] 99 % Dominique Josh ESTATE MANAGER-SHELF FILLER Work Phone: [facility] 12-01-2023 14:25-0400 Systolic blood pressure 111 mm[Hg] Dominique Josh ESTATE MANAGER-SHELF FILLER Work Phone: [facility] 10-31-2023 11:13-0400 Body temperature 98.6 [degF] [facility] 2 [facility] 10-31-2023 11:13-0400 Diastolic blood pressure 72 mm[Hg] [facility] 2 [facility] 10-31-2023 11:13-0400 Heart rate 85 /min [facility] 2 [facility] 10-31-2023 11:13-0400 Respiratory rate 18 /min [facility] 2 [facility] 10-31-2023 11:13-0400 Systolic blood pressure 112 mm[Hg] [facility] 2 [facility] 10-31-2023 09:51-0400 Body mass index (BMI) [Ratio] 27.81 kg/m2 [facility] 2 [facility] 10-31-2023 09:51-0400 Body weight 75.8 kg [facility] 2 [facility] 10-31-2023 08:50-0400 Body height 165.1 cm Sharda Montiel MD Work Phone: [facility] 10-31-2023 08:50-0400 Body mass index (BMI) [Ratio] 27.79 kg/m2 Sharda Montiel MD Work Phone: [facility] 10-31-2023 08:50-0400 Body weight 75.75 kg Sharda Montiel MD Work Phone: [facility] 10-31-2023 08:50-0400 Diastolic blood pressure 60 mm[Hg] Sharda Montiel MD Work Phone: [facility] 10-31-2023 08:50-0400 Systolic blood pressure 100 mm[Hg] Sharda Montiel MD Work Phone: [facility] 09-17-2023 09:46-0400 Body mass index (BMI) [Ratio] 27.06 kg/m2 Hilary Traci ESTATE MANAGER-SHELF FILLER Work Phone: [facility] 09-17-2023 09:46-0400 Body temperature 98.2 [degF] Hilary Traci ESTATE MANAGER-SHELF FILLER Work Phone: [facility] 09-17-2023 09:46-0400 Body weight 73.75 kg Hilary Traci ESTATE MANAGER-SHELF FILLER Work Phone: [facility] 09-17-2023 09:46-0400 Diastolic blood pressure 60 mm[Hg] Hilary Traci ESTATE MANAGER-SHELF FILLER Work Phone: [facility] 09-17-2023 09:46-0400 Heart rate 75 /min Hilary Traci ESTATE MANAGER-SHELF FILLER Work Phone: [facility] 09-17-2023 09:46-0400 SaO2% (BldA) [Mass fraction] 97 % Hilary Traci ESTATE MANAGER-SHELF FILLER Work Phone: [facility] 09-17-2023 09:46-0400 Systolic blood pressure 98 mm[Hg] Hilary Traci ESTATE MANAGER-SHELF FILLER Work Phone: [facility] 09-15-2023 12:10-0400 Body temperature 98.71 [degF] [facility] 3 [facility] 09-15-2023 12:10-0400 Diastolic blood pressure 70 mm[Hg] [facility] 3 [facility] 09-15-2023 12:10-0400 Heart rate 75 /min [facility] 3 [facility] 09-15-2023 12:10-0400 Respiratory rate 20 /min [facility] 3 [facility] 09-15-2023 12:10-0400 Systolic blood pressure 117 mm[Hg] [facility] 3 [facility] 09-15-2023 10:43-0400 Body mass index (BMI) [Ratio] 26.89 kg/m2 [facility] 3 [facility] 09-15-2023 10:43-0400 Body weight 73.3 kg [facility] 3 [facility] 08-20-2023 14:15-0400 Body height 165.1 cm Hilary Correauessler ESTATE MANAGER-SHELF FILLER Work Phone: [facility] 08-20-2023 14:15-0400 Body mass index (BMI) [Ratio] 26.36 kg/m2 Hilary Aviles ESTATE MANAGER-SHELF FILLER Work Phone: [facility] 08-20-2023 14:15-0400 Body temperature 98.6 [degF] Hilary Correauessler ESTATE MANAGER-SHELF FILLER Work Phone: [facility] 08-20-2023 14:15-0400 Body weight 71.85 kg Hilary Aviles ESTATE MANAGER-SHELF FILLER Work Phone: [facility] 08-20-2023 14:15-0400 Diastolic blood pressure 72 mm[Hg] Hilary Aviles ESTATE MANAGER-SHELF FILLER Work Phone: [facility] 08-20-2023 14:15-0400 Heart rate 87 /min Hilary Aviles ESTATE MANAGER-SHELF FILLER Work Phone: [facility] 08-20-2023 14:15-0400 SaO2% (BldA) [Mass fraction] 97 % Hilary Aviles ESTATE MANAGER-SHELF FILLER Work Phone: [facility] 08-20-2023 14:15-0400 Systolic blood pressure 116 mm[Hg] Hilary Aviles ESTATE MANAGER-SHELF FILLER Work Phone: [facility] 08-04-2023 14:48-0400 Body temperature 98.2 [degF] [facility] 2 [facility] 08-04-2023 14:48-0400 Diastolic blood pressure 77 mm[Hg] [facility] 2 [facility] 08-04-2023 14:48-0400 Heart rate 76 /min [facility] 2 [facility] 08-04-2023 14:48-0400 Respiratory rate 20 /min [facility] 2 [facility] 08-04-2023 14:48-0400 Systolic blood pressure 118 mm[Hg] [facility] 2 [facility] 08-04-2023 13:22-0400 Body mass index (BMI) [Ratio] 27.19 kg/m2 [facility] 2 [facility] 08-04-2023 13:22-0400 Body weight 74.12 kg [facility] 2 [facility] 04-21-2023 13:05-0400 Body temperature 97.81 [degF] [facility] 4 [facility] 04-21-2023 13:05-0400 Diastolic blood pressure 75 mm[Hg] [facility] 4 [facility] 04-21-2023 13:05-0400 Heart rate 78 /min [facility] 4 [facility] 04-21-2023 13:05-0400 Respiratory rate 20 /min [facility] 4 [facility] 04-21-2023 13:05-0400 Systolic blood pressure 117 mm[Hg] [address] 04-21-2023 10:29-0400 Body mass index (BMI) [Ratio] 27.89 kg/m2 [address] 04-21-2023 10:29-0400 Body weight 76.[address] 02-20-2023 11:48-0500 Body height 165.1 cm Lyndsey Anders MD Work Phone: [facility] 02-20-2023 11:48-0500 Body mass index (BMI) [Ratio] 27.46 kg/m2 Lyndsey Anders MD Work Phone: [facility] 02-20-2023 11:48-0500 Body temperature 98.91 [degF] Lyndsey Anders MD Work Phone: [facility] 02-20-2023 11:48-0500 Body weight 74.84 kg Lyndsey Anders MD Work Phone: [facility] 02-20-2023 11:48-0500 Diastolic blood pressure 72 mm[Hg] Lyndsey Anders MD Work Phone: [facility] 02-20-2023 11:48-0500 Heart rate 104 /min Lyndsey Anders MD Work Phone: [facility] 02-20-2023 11:48-0500 SaO2% (BldA) [Mass fraction] 99 % Lyndsey Anders MD Work Phone: [facility] 02-20-2023 11:48-0500 Systolic blood pressure 114 mm[Hg] Lyndsey Anders MD Work Phone: [facility] 02-17-2023 14:26-0500 Body temperature 99.1 [degF] [address] 02-17-2023 14:26-0500 Diastolic blood pressure 77 mm[Hg] [address] 02-17-2023 14:26-0500 Heart rate 100 /min [address] 02-17-2023 14:26-0500 SaO2% (BldA) [Mass fraction] 97 % [address] 02-17-2023 14:26-0500 Systolic blood pressure 117 mm[Hg] [address] 02-17-2023 11:45-0500 Body mass index (BMI) [Ratio] 27.69 kg/m2 [address] 02-17-2023 11:45-0500 Body weight 75.[address] 02-17-2023 11:45-0500 Respiratory rate 20 /min [address] 02-06-2023 12:54-0500 Diastolic blood pressure 69 mm[Hg] Pfo [address] [place] [address] 02-06-2023 12:54-0500 Heart rate 92 /min [facility] 3 [facility] 12-28-2023 12:54-0500 Respiratory rate 18 /min [facility] 3 [facility] [employer] 02-06-2023 12:54-0500 SaO2% (BldA) [Mass fraction] 100 % [facility] 3 [facility] 02-06-2023 12:54-0500 Systolic blood pressure 104 mm[Hg] P[facility] 3 [facility] 02-06-2023 11:37-0500 Body height 165.1 cm P[facility] 3 [facility] 02-06-2023 11:37-0500 Body mass index (BMI) [Ratio] 27.46 kg/m2 P[facility] 3 [facility] 02-06-2023 11:37-0500 Body temperature 98.4 [degF] Pfo 3 [facility] [employer] 02-06-2023 11:37-0500 Body weight 74.84 kg P[facility] 3 [facility] Encounters Encounter Date Encounter Type Care Provider Facility Start: 05-06-2024 End: 05-06-2024 ambulatory [facility] Start: 05-06-2024 End: 05-06-2024 Office outpatient visit 25 minutes [place] Russ Campbell DO Work Phone: [facility] Comment on above: HTN complicating per ipregnancy, antepartum, second trimester (Primary Dx); 26 weeks gestation of ; Anemia affecting fourth ; HTN, goal below 130/80 Start: 05-04-2024 End: 05-04-2024 Chart abstracting Deepthi Tomas MD Work Phone: [facility] Start: 04-26-2024 End: 04-26-2024 Bamboo flowsheet [...] Orders Only Sharda Montiel MD Work Phone: [facility] Comment on above: Ulcerative colitis w ith other complication, unspecified location (CMS-HCC) (Primary Dx) Start: 04-22-2024 End: 04-22-2024 Orders Only Sharda Montiel MD Work Phone: [facility] Comment on above: Crohn's disease of c olon with other complication (CMS-HCC) (Primary Dx) Start: 04-21-2024 End: 04-21-2024 ambulatory YAQUELIN HORNE Not Available Start: 04-20-2024 End: 04-20-2024 Orders Only Sharda Montiel MD Work Phone: [facility] Start: 04-19-2024 End: 04-21-2024 Telephone encounter Sharda Montiel MD Work Phone: [facility] Start: 04-19-2024 End: 04-19-2024 ambulatory HILARY Magen [facility] Start: 04-19-2024 End: 04-19-2024 Office outpatient visit 40 minutes Sharda Montiel MD Work Phone: [facility] Comment on above: Thrombocytopenia (CM S-HCC) (Primary Dx); Crohn's disease with complication, unspecified gastrointestinal tract location (CMS-HCC) Start: 04-19-2024 End: 04-19-2024 ambulatory [facility] Infusion Chair 1 [facility] [...] flow sheet Parish Courtney DO Work Phone: [facility] Comment on above: Diabetes mellitus sc reening; Second trimester ; 23 weeks gestation of Start: 03-24-2024 End: 03-24-2024 Clinisync Result Encounter Parish Courtney DO Work Phone: [facility] External Department Unsolicited Start: 03-24-2024 End: 03-24-2024 Clinisync Result Encounter Parish Courtney DO Work Phone: [facility] Unsolicited Start: 03-17-2024 End: 03-17-2024 Bamboo flowsheet Yaquelin BELCHER Work Phone: [facility] Start: 03-17-2024 End: 03-18-2024 Bamboo flowsheet Yaquelin BELCHER Work Phone: [facility] Start: 03-17-2024 End: 03-18-2024 External Result Encounter Yaquelin BELCHER Work Phone: [facility] External Department Unsolicited Start: 03-17-2024 End: 03-17-2024 ambulatory YAQUELIN HORNE Not Available Start: 03-17-2024 End: 03-17-2024 flow sheet Yaquelin BELCHER Work Phone: [facility] Comment on above: Second [...] [facility] [...] flow sheet Parish Courtney DO Work Phone: [facility] Comment on above: Second trimester pre gnancy; 15 weeks gestation of ; H/O oligohydramnios in prior , currently Start: 02-14-2024 End: 02-14-2024 Clinisync Result Encounter Parish Courtney DO Work Phone: [facility] External Department Unsolicited Start: 02-14-2024 End: 02-14-2024 Clinisync Result Encounter Parish Courtney DO Work Phone: [facility] External Department Unsolicited Start: 02-03-2024 End: 02-03-2024 Orders Only Sharda Montiel MD Work Phone: [facility] Comment on above: Therapeutic drug mon itoring (Primary Dx) Start: 01-31-2024 End: 01-31-2024 Emergency department patient visit [facility] Start: 01-26-2024 End: 01-26-2024 ambulatory [facility] Start: 01-26-2024 End: 01-26-2024 ambulatory [facility] Start: 01-23-2024 End: 01-23-2024 ambulatory YAQUELIN HORNE Not Available Start: 01-23-2024 End: 01-23-2024 Office outpatient visit 5 minutes [facility] Nurse [facility] Comment on above: GA: 11w2d Start: 01-13-2024 End: 01-13-2024 Orders Only Dominique Moya ESTATE MANAGER-SHELF FILLER Work Phone: [facility] Comment on above: Iron deficiency anem ia due to chronic blood loss (Primary Dx); Iron malabsorption; Iron deficiency anemia, unspecified Start: 01-06-2024 End: 01-06-2024 Orders Only Dominique Moya ESTATE MANAGER-SHELF FILLER Work Phone: [facility] Comment on above: Iron deficiency anem ia due to chronic blood loss (Primary Dx); Iron malabsorption; Iron deficiency anemia, unspecified Start: 01-03-2024 End: 01-03-2024 Emergency department patient visit HILARY AVILES [facility] Start: 12-17-2023 End: 12-18-2023 Telephone encounter Raf Zarco RN [facility] Start: 12-12-2023 End: 12-12-2023 ambulatory [facility] Infusion Chair 2 [facility] Comment on above: Crohn's disease of b oth small and large intestine with intestinal obstruction (CMS-HCC) (Primary Dx) Start: 12-01-2023 End: 12-01-2023 Office outpatient visit 25 minutes Dominique Moya ESTATE MANAGER-SHELF FILLER Work Phone: [facility] Comment on above: Iron deficiency (Ping hussein Dx); Crohn's disease of both small and large intestine with intestinal obstruction (CMS-HCC); Chronic fatigue; Leg cramps; Noncompliance; Iron deficiency anemia due to chronic blood loss; Iron malabsorption; Iron deficiency anemia, unspecified Start: 12-01-2023 End: 12-01-[address] [facility] Start: 12-01-2023 End: 12-01-2023 ambulatory MJ PIZARRO [facility] Start: 10-31-2023 End: 10-31-2023 Office outpatient visit 25 minutes Sharda Montiel MD Work Phone: [facility] Comment on above: Therapeutic drug mon itoring (Primary Dx); Crohn's disease of both small and large intestine with other complication (CMS-HCC) Start: 10-31-2023 End: 10-31-2023 ambulatory [facility] Infusion Chair 2 [facility] Comment on above: Crohn's disease of b oth small and large intestine with intestinal obstruction (CMS-HCC) (Primary Dx) Start: 09-17-2023 End: 09-17-2023 ambulatory [facility] Start: 09-17-2023 End: 09-17-2023 Office outpatient visit 25 minutes Hilary Aviles ESTATE MANAGER-SHELF FILLER Work Phone: [facility] Comment on above: Current moderate epi sode of major depressive disorder without prior episode (CMS-HCC) (Primary Dx); Crohn's disease of both small and large intestine with intestinal obstruction (CMS-HCC) Start: 09-15-2023 End: 09-16-2023 Telephone encounter Sharda Montiel MD Work Phone: [facility] Start: 09-15-2023 End: 09-15-2023 ambulatory [facility] Infusion Chair 3 [facility] Comment on above: Crohn's disease of b oth small and large intestine with intestinal obstruction (CMS-HCC) (Primary Dx) Start: 09-03-2023 End: 09-03-2023 Telephone encounter Hilary Aviles ESTATE MANAGER-SHELF FILLER Work Phone: [facility] Start: 09-03-2023 End: 09-03-2023 ambulatory [facility] Start: 09-03-2023 End: 09-03-2023 Phys/qhp telephone evaluation 11-20 min Hilary Aviles ESTATE MANAGER-SHELF FILLER Work Phone: [facility] Comment on above: Reactive depression (Primary Dx) Start: 08-20-2023 End: 08-20-2023 [facility] Start: 08-20-2023 End: 08-20-2023 Office outpatient visit 25 minutes Hilary Aviles ESTATE MANAGER-SHELF FILLER Work Phone: [facility] Comment on above: Anxiety (Primary Dx) Start: 08-04-2023 End: 08-04-2023 ambulatory [facility] Infusion Chair 2 [facility] [...] End: 03-19-2023 ambulatory LYNDSEY ANDERS [facility] Start: 02-20-2023 End: 02-20-2023 Office outpatient visit 25 minutes Lyndsey Anders MD Work Phone: [facility] Comment on above: Reactive airway dise ase with acute exacerbation, unspecified asthma severity, unspecified whether persistent (Primary Dx); Shortness of breath; COVID-19; Sinusitis, unspecified chronicity, unspecified location Start: 02-17-2023 End: 02-17-2023 ambulatory [facility] Infusion Chair 3 [facility] Comment on above: Crohn's disease of b oth small and large intestine with intestinal obstruction (CMS-HCC) (Primary Dx) Start: 02-06-2023 End: 02-06-2023 ambulatory MJ PIZARRO [facility] Comment on above: Iron deficiency anem ia due to chronic blood loss (Primary Dx); Iron deficiency anemia, unspecified; Iron malabsorption Start: 04-30-2022 End: 04-30-2022 ambulatory SEBASTIAN HERRING Facility: Start: 12-03-2016 End: 12-04-2016 Ambulatory SAMARA HERNANDEZ [facility] Start: 11-19-2016 End: 11-26-2016 Ambulatory SAMARA HERNANDEZ [facility] Start: 10-29-2016 End: 10-30-2016 Ambulatory SAMARA HERNANDEZ [facility] Start: 10-01-2016 End: 10-01-2016 Ambulatory SAMARA HERNANDEZ [facility] Start: 08-29-2016 End: 08-29-2016 Ambulatory SAMARA HERNANDEZ [facility] Procedures Date Procedure Procedure Detail Performing Clinician Start: 05-06-2024 Adult depression scr eening assessment Raulito Jimenez DO Work Phone: Start: 04-26-2024 Urnls dip stick/tabl et rgnt [...] qual Not In System Ref Prov Start: 02-14-2024 ALL CBC WITH AUTO DIFF Parish Courtney DO Work Phone: Start: 01-23-2024 Urnls dip stick/tabl et rgnt non-auto w/o micrscp Parish Courtney DO Work Phone: Start: 12-01-2023 Follow-up visit Follow-up DOMINIQUE MOYA Start: 10-31-2023 Follow-up visit Follow-up SHARDA MONTIEL Start: 09-17-2023 Adult depression scr eening assessment Hilary Aviles ESTATE MANAGER-SHELF FILLER Work Phone: Start: 09-17-2023 Microscopic observat ion [Identifier] in Cervix by Cyto stain Sharda Montiel MD Work Phone: Start: 08-20-2023 Adult depression scr eening assessment Hilary Aviles ESTATE MANAGER-SHELF FILLER Work Phone: Start: 11-23-2020 Adult depression scr eening assessment Pfo 3 Plan of Treatment Date Care Activity Detail Author Start: 09-16-2026 Screening for malign ant neoplasm of cervix Pap Smear [facility] Start: 05-06-2025 Adult BMI Screening Adult BMI Screen ing [facility] Start: 05-06-2025 Depression Screening Depression Scre ening [facility] Start: 05-06-2025 Tobacco Screening Tobacco Screening [facility] Start: 04-19-2025 Adult BMI Screening Adult BMI Screen ing [facility] Start: 04-19-2025 Tobacco Screening Tobacco Screening [facility] Start: 01-30-2025 Adult BMI Screening Adult BMI Screen ing [facility] Start: 01-30-2025 Tobacco Screening Tobacco Screening [facility] Start: 01-02-2025 Adult BMI Screening Adult BMI Screen ing [facility] Start: 01-02-2025 Tobacco Screening Tobacco Screening [facility] Start: 12-11-2024 Adult BMI Screening Adult BMI Screen ing [facility] Start: 12-02-2024 End: 12-02-2024 Patient encounter procedure 12/02/2024 10:15 AM EDT Office Visit Ally L Nas [facility] - [facility] Oncology [address] [place] [address] Mj Pizarro MD [address] [place] [address] [facility] L [facility] Start: 10-30-2024 Adult BMI Screening Adult BMI Screen ing [facility] Start: 10-30-2024 Tobacco Screening Tobacco Screening [facility] Start: 09-16-2024 Adult BMI Screening Adult BMI Screen ing [facility] Start: 09-16-2024 Depression Screening Depression Scre ening [facility] Start: 09-16-2024 Tobacco Screening Tobacco Screening [facility] Start: 09-14-2024 Adult BMI Screening Adult BMI Screen ing [facility] Start: 09-02-2024 Tobacco Screening Tobacco Screening [facility] Start: 08-19-2024 Adult BMI Screening Adult BMI Screen ing [facility] Start: 08-19-2024 Depression Screening Depression Scre ening [facility] Start: 08-19-2024 Tobacco Screening Tobacco Screening [facility] Start: 08-03-2024 Adult BMI Screening Adult BMI Screen ing [facility] Start: 06-28-2024 End: 06-28-2024 ambulatory 06/28/2024 10:30 AM EDT [facility]fusion [facility] Infusion [address] [facility] [address] [place] [address] [facility]fusion Start: 06-02-2024 End: 06-02-2024 Patient encounter procedure 06/02/2024 8:45 AM EDT Office Visit Maternal- Medicine at [facility] [address] [place] [address] Deepthi Tomas MD [address] [facility] 1st [place] [address] [facility]- Medicine at [facility] Start: 06-02-2024 End: 06-02-2024 Patient encounter procedure 06/02/2024 7:30 AM EDT Appointment [facility] [address] [place] [address] [facility] Start: 05-31-2024 End: 05-31-2024 ambulatory 05/31/2024 10:00 AM EDT Infusion [facility] [address] [place] [phone] [facility] Start: 05-24-2024 End: 05-24-2024 ambulatory 05/24/2024 10:30 AM EDT Infusion [facility] Infusion [address] [place] [phone] [facility] Infusion Start: 05-12-2024 End: 05-12-2024 Patient encounter procedure 05/12/2024 2:30 PM EDT Routine [facility] [address] [id number] Yaquelin Horne PA [address] [place] [address] [facility] Start: 05-06-2024 End: 05-06-2025 Echo complete W/O contrast Echo complete W/O contrast Echocardiography Routine HTN complicating peripregnancy, antepartum, second trimester 26 weeks gestation of Expected: 05/06/2024, Expires: 05/06/2025 [facility] Work Phone: Comment on above: Expected: 05/06/2024 , Expires: 05/06/2025 Start: 04-26-2024 End: 04-26-2024 Patient encounter procedure 04/26/2024 10:10 AM EDT Office Visit [facility] [address] [place] [phone] Parish Valdez, DO [address] [place] [address] Arrived [facility] Comment on above: Arrived Start: 04-21-2024 End: 04-21-2024 Professional / ancillary services management 04/21/2024 11:00 AM EDT Ancillary Procedure [facility] [address] [facility] [place] [phone] [facility] Start: 04-20-2024 Adult BMI Screening Adult BMI Screen ing [facility] Start: 04-19-2024 End: 04-19-2025 Cyanocobalamin vitamin b-12 Vitamin B12 Lab Routine Crohn's disease with complication, unspecified gastrointestinal tract location ([facility]) Expected: 04/19/2024, Expires: 04/19/2025 [facility] Comment on above: Expected: 04/19/2024 , Expires: 04/19/2025 Start: 04-19-2024 End: 04-19-2024 ambulatory 04/19/2024 10:30 AM EDT [facility] [address] [place] [phone] [facility] Start: 04-19-2024 End: 04-19-2024 Patient encounter procedure [facility] Start: 04-14-2024 End: 04-14-2025 CBC panel - Blood by Automated count CBC Lab Routine Diabetes mellitus screening Expected: 04/14/2024 (Approximate), Expires: 04/14/2025 [facility] Work Phone: Comment on above: Expected: 04/14/2024 (Approximate), Expires: 04/14/2025 Start: 04-14-2024 End: 04-14-2025 Measurement of glucose 1 hour after glucose challenge for glucose tolerance test Glucose tolerance, 1 hour Lab Routine Diabetes mellitus screening Expected: 04/14/2024 (Approximate), Expires: 04/14/2025 [facility] Comment on above: Expected: 04/14/2024 (Approximate), Expires: 04/14/2025 Start: 04-14-2024 End: 04-14-2024 Patient encounter procedure 04/14/2024 1:40 PM EST Routine [facility] [address] [facility] [phone] Parish Valdez DO [address] [place] [place] [address] [facility] Start: 03-17-2024 End: 09-14-2024 Alpha fetoprotein, maternal Alpha fetoprotein, maternal Lab Routine Second trimester 19 weeks gestation of Expected: 03/17/2024 (Approximate), Expires: 09/14/2024 [facility] Comment on above: Expected: 03/17/2024 (Approximate), Expires: 09/14/2024 Start: 03-17-2024 End: 03-17-2025 US for US OB 14+ weeks anatomy scan Imaging Routine Screening, , for anatomic survey Expected: 03/17/2024, Expires: 03/17/2025 [facility] Comment on above: Expected: 03/17/2024 , Expires: 03/17/2025 Start: 03-17-2024 End: 03-17-2024 Patient encounter procedure 03/17/2024 10:30 AM EST Routine [facility] [address] [facility] [place] [id number] Yaquelin Horne PA [address] [place] [address] [facility] Start: 03-08-2024 End: 03-08-2024 ambulatory 03/08/2024 10:00 AM EST Infusion [facility] [address] [facility] [address] [place] [address] [facility] Start: 02-21-2024 Adult BMI Screening Adult BMI Screen ing [facility] Start: 02-21-2024 Tobacco Screening Tobacco Screening [facility] Start: 02-18-2024 Adult BMI Screening Adult BMI Screen ing [facility] Start: 02-18-2024 End: 02-18-2024 Patient encounter procedure 02/18/2024 11:30 AM EST Routine [facility] [address] [facility] [address] Parish Valdez, DO [address] [facility] [address] [place] [address] [facility] Start: 02-07-2024 Tobacco Screening Tobacco Screening [facility] Start: 01-31-2024 Adult BMI Screening Adult BMI Screen ing [facility] Start: 01-31-2024 Tobacco Screening Tobacco Screening [facility] Start: 01-26-2024 End: 01-26-2024 ambulatory 01/26/2024 10:00 AM EST [facility] [address] [facility] [address] [place] [address] [facility] Start: 01-23-2024 End: 01-22-2025 ABO/Rh ABO/Rh Lab Routine Missed menses , unspecified gestational age Expected: 01/23/2024 (Approximate), Expires: 01/22/2025 [facility] Comment on above: Expected: 01/23/2024 (Approximate), Expires: 01/22/2025 Start: 01-23-2024 End: 01-22-2025 Blood type and Indirect antibody screen panel - Blood Type and screen Lab Routine Missed menses , unspecified gestational age Expected: 01/23/2024 (Approximate), Expires: 01/22/2025 [facility] Work Phone: Comment on above: [...] EST Office Visit [facility] [address] [place] [phone] Hilary Aviles, ESTATE MANAGER-SHELF FILLER [address] [facility] [address], [place] [address] [facility] Start: 12-12-2023 End: 12-12-2023 ambulatory 12/12/2023 10:00 AM EDT Infusion [facility] [address] [phone] [facility] Start: 11-20-2023 End: 11-20-2023 Patient encounter procedure 11/20/2023 1:00 PM EDT Office Visit Ally Lovell [facility] - [facility] Oncology [address] [place] [phone] [place] [address] [place] [address] [address] [place] [address] Ally Richey [facility] - [facility] Oncology Start: 11-19-2023 End: 11-19-2023 Patient encounter procedure 11/19/2023 9:40 AM EDT Office Visit [facility] [address] [place] [phone] Hilary Aviles, ESTATE MANAGER-SHELF FILLER [address] [facility] [address], Matthew Solano [facility] [address] [facility] Start: 10-31-2023 End: 10-30-2024 C-reactive protein C-reactive protein Lab Routine Crohn's disease of both small and large intestine with other complication ([facility]) Expected: 10/31/2023, Expires: 10/30/2024 [facility] Comment on above: Expected: 10/31/2023 , Expires: 10/30/2024 Start: 10-31-2023 End: 10-30-2024 Cyanocobalamin vitamin b-12 Vitamin B12 Lab Routine Crohn's disease of both small and large intestine with other complication ([facility]) Expected: 10/31/2023, Expires: 10/30/2024 [facility] Comment on above: Expected: 10/31/2023 , Expires: 10/30/2024 Start: 10-31-2023 End: 10-30-2024 Erythrocyte sedimentation rate Erythrocyte Sedimentation Rate (ESR) Lab Routine Crohn's disease of both small and large intestine with other complication ([facility]) Expected: 10/31/2023, Expires: 10/30/2024 [facility] Comment on above: Expected: 10/31/2023 , Expires: 10/30/2024 Start: 10-31-2023 End: 10-31-2023 ambulatory 10/31/2023 9:30 AM EDT Infusion [facility] [address] [place] [address] [address] [place] [address] [facility] Start: 10-31-2023 End: 10-31-2023 Patient encounter procedure 10/31/2023 9:00 AM EDT Office Visit [facility] [address] [place] [address] [address] [place] [address] Sharda Montiel MD [address] [facility] [place] [address] [facility] Start: 10-27-2023 End: 10-27-2023 ambulatory 10/27/2023 12:00 PM EDT Infusion [facility] [address] [phone] [facility] Start: 10-27-2023 End: 10-27-2023 Patient encounter procedure 10/27/2023 11:30 AM EDT Office Visit [facility] [address] [place] [address] [place] [address] [place] [address], [address] [place] [address] [facility] Start: 10-12-2023 Influenza vaccination Influenza Vacc ine [facility] Start: 09-17-2023 End: 09-17-2023 Patient encounter procedure 09/17/2023 9:20 AM EDT Office Visit [facility] [address] [place] [phone] Hilary Aviles, ESTATE MANAGER-SHELF FILLER [address] [facility] [address], [place] [address] [facility] Start: 09-15-2023 End: 09-15-2023 ambulatory 09/15/2023 10:00 AM EDT Infusion [facility] [address] [phone] [facility] Start: 06-17-2023 End: 06-17-2023 Patient encounter procedure 06/17/2023 11:15 AM EDT Office Visit [facility] [address] [place] [phone] Meaghan King PA-C [address] [address] [facility] Start: 06-10-2023 End: 06-10-2023 ambulatory 06/10/2023 10:30 AM EDT Infusion [facility] [address] [place] [address] [facility] Start: 04-21-2023 End: 04-21-2023 ambulatory 04/21/2023 10:00 AM EDT Infusion [facility] [address] [place] [address] [facility] Start: 03-31-2023 End: 03-31-2023 ambulatory 03/31/2023 10:00 AM EST Infusion [facility] [address] [facility] [place] [address] [facility] Start: 02-17-2023 End: 02-17-2023 ambulatory 02/17/2023 11:30 AM EST Infusion [facility] [address] [facility] [place] [address] [facility] Start: 10-11-2022 Influenza vaccination Influenza Vacc ine [facility] Start: 11-23-2021 Depression Screening Depression Scre ening [facility] Start: 2010 Screening for malign ant neoplasm of cervix Pap Smear [facility] Start: 2008 DTaP,Tdap and Td Vaccines (1 - Tdap) DTaP,Tdap and Td Vaccines (1 - Tdap) [facility] Start: 11-11-2007 Adult BMI Follow Up Plan Adult BMI F ollow Up Plan [facility] Bacteria identified in Urine by Culture Urine culture Microbiology Routine Missed menses Ordered: 01/23/2024 [facility] Comment on above: Ordered: 01/23/2024 End: 10-30-2024 Basic metabolic 2000 panel - Serum or Plasma Basic Metabolic Panel Lab Routine Therapeutic drug monitoring Crohn's disease of both small and large intestine with other complication ([facility]) 1 Occurrences starting 10/31/2023 until 10/30/2024 [facility] Comment on above: 1 Occurrences starti ng 10/31/2023 until 10/30/2024 End: 10-30-2024 Calprotectin, F Calprotectin, F Lab Routine Crohn's disease of both small and large intestine with other complication ([facility]) 1 Occurrences starting 10/31/2023 until 10/30/2024 [employer] [employer] Work Phone: Comment on above: 1 Occurrences starti ng 10/31/2023 until 10/30/2024 End: 04-22-2025 Calprotectin, F Calprotectin, F Lab Routine Crohn's disease of colon with other complication ([facility]) 1 Occurrences starting 04/22/2024 until 04/22/2025 [employer] Work Phone: Comment on above: 1 Occurrences starti ng 04/22/2024 until 04/22/2025 End: 04-23-2025 Calprotectin, F Calprotectin, F Lab Routine Ulcerative colitis with other complication, unspecified location ([facility]) 1 Occurrences starting 04/23/2024 until 04/23/2025 [employer] Work Phone: Comment on above: 1 Occurrences starti ng 04/23/2024 until 04/23/2025 End: 10-30-2024 CBC panel - Blood by Automated count CBC without diff Lab Routine Therapeutic drug monitoring 1 Occurrences starting 10/31/2023 until 10/30/2024 [facility] Comment on above: 1 Occurrences starti ng 10/31/2023 until 10/30/2024 CBC W Auto Different ial panel - Blood CBC and differential Lab Routine Missed menses , unspecified gestational age Ordered: 01/23/2024 [facility] Comment on above: Ordered: 01/23/2024 End: 04-19-2025 CBC W Auto Differential panel - Blood CBC auto differential Lab Routine Thrombocytopenia ([facility]) 1 Occurrences starting 04/19/2024 until 04/19/2025 [employer] Work Phone: Comment on above: 1 Occurrences starti ng 04/19/2024 until 04/19/2025 CHLAMYDIA TRACHOMATI S (GENITO/STI) CHLAMYDIA TRACHOMATIS (GENITO/STI) Lab Routine STD exposure Ordered: 03/17/2024 [facility] Comment on above: Ordered: 03/17/2024 Hemoglobin A1c/Hemoglobin.total in Blood Hemoglobin A1c Lab Routine Missed menses , unspecified gestational age Ordered: 01/23/2024 [facility] Comment on above: Ordered: 01/23/2024 Hepatitis B virus surface Ag [Presence] in Serum or Plasma by Immunoassay Hepatitis B surface antigen Lab Routine Missed menses , unspecified gestational age Ordered: 01/23/2024 [facility] Comment on above: Ordered: 01/23/2024 Hepatitis C virus Ab [Presence] in Serum or Plasma by Immunoassay Hepatitis C antibody Lab Routine Missed menses , unspecified gestational age Ordered: 01/23/2024 [facility] Comment on above: Ordered: 01/23/2024 HIV-1/HIV-2 antigen/antibody combination immunoassay HIV-1 and HIV-2 antibodies Lab Routine Missed menses , unspecified gestational age Ordered: 01/23/2024 [facility] Comment on above: Ordered: 01/23/2024 End: 10-30-2024 Liver panel Liver panel Lab Routine Therapeutic drug monitoring Crohn's disease of both small and large intestine with other complication (CMS-HCC) 1 Occurrences starting 10/31/2023 until 10/30/2024 [facility] [employer] Comment on above: 1 Occurrences starti ng 10/31/2023 until 10/30/2024 End: 06-08-2024 Mycobacterium TB by Quantiferon Gold Mycobacterium TB by Quantiferon Gold Lab Routine Crohn's disease of both small and large intestine with intestinal obstruction (CMS-HCC) 1 Occurrences starting 06/09/2023 until 06/08/2024 [facility] Work Phone: Comment on above: 1 Occurrences starti ng 06/09/2023 until 06/08/2024 Neisseria gonorrhoea e DNA [Presence] in Unspecified specimen by ROBERT with probe detection Neisseria gonorrhea DNA probe, direct Lab Routine STD exposure Ordered: 03/17/2024 [facility] Comment on above: Ordered: 03/17/2024 End: 02-07-2023 Oxygen Therapy - Maintain SpO2: 90% or greater; *CRUC[employer] PACKER Guidelines for O2: Yes; Document: [email or web address] Oxygen Therapy - Maintain SpO2: 90% or greater; *[employer]UCIBLE PACKER Guidelines for O2: Yes; Document: file://[email or web address] /[email or web address]_Reference/Orde rs/Respiratory%20Care%20G uidelines/CPG%20Oxygen%20 2015.pdf Respiratory Care STAT Iron deficiency anemia due to chronic blood loss Iron deficiency anemia, unspecified Iron malabsorption As Needed for 1 Occurrences starting 02/06/2023 until 02/07/2023 [employer] Work Phone: Comment on above: As [...] persistent 1 Occurrences starting 02/20/2023 until 02/21/2024 [employer] Work Phone: Comment on above: 1 Occurrences starti ng 02/20/2023 until 02/21/2024 Reagin Ab [Presence] in Serum by RPR RPR Lab Routine Missed menses , unspecified gestational age Ordered: 01/23/2024 [facility] [employer] Comment on above: Ordered: 01/23/2024 Rubella antibody, IgG Rubella an tibody, IgG Lab Routine Missed menses , unspecified gestational age Ordered: 01/23/2024 [facility] [employer] Comment on above: Ordered: 01/23/2024 SURESWAB(R) ADVANCED VAGINITIS PLUS, TMA SURESWAB(R) ADVANCED VAGINITIS PLUS, TMA Pathology and Cytology Routine Vaginal discharge Ordered: 03/17/2024 [employer] Work Phone: Comment on above: Ordered: 03/17/2024 End: 02-02-2025 Thiopurine Metabs Thiopurine Metabs Lab Routine Therapeutic drug monitoring 1 Occurrences starting 02/03/2024 until 02/02/2025 [employer] Work Phone: Comment on above: 1 Occurrences starti ng 02/03/2024 until 02/02/2025 End: 10-30-2024 Thiopurine Metabs Thiopurine Metabs Lab Routine Therapeutic drug monitoring 1 Occurrences starting 10/31/2023 until 10/30/2024 [employer] Comment on above: 1 Occurrences starti ng 10/31/2023 until 10/30/2024 End: 10-30-2024 Vitamin D 25 hydroxy Vitamin D 25 hydroxy Lab Routine Crohn's disease of both small and large intestine with other complication ([facility]) 1 Occurrences starting 10/31/2023 until 10/30/2024 [employer] Comment on above: 1 Occurrences starti ng 10/31/2023 until 10/30/2024 End: 04-19-2025 Vitamin D 25 hydroxy Vitamin D 25 hydroxy Lab Routine Crohn's disease with complication, unspecified gastrointestinal tract location ([facility]) 1 Occurrences starting 04/19/2024 until 04/19/2025 [employer] Comment on above: 1 Occurrences starti ng 04/19/2024 until 04/19/2025 Payers Date Payer Category Payer Medicaid [id number] 2022 Medicaid [id number] 2021 Commercial Managed C are - POS [employer] [id number] 2021 Managed Care HMO (unspecified) [employer] [id number] 2021 Private Health Insurance AETNA AETNA POS II [id number] 2021-Present [phone] [address] [place] [address] [id number] [id number] 1989 Unknown [id number] 2.16.840.1.610553.3.579. 2.593 1989 Unknown [id number] 2.16.840.1.884274.3.579. 2.1286 1989 Unknown [id number] 2.16.840.1.932442.3.579. 2.1286 1989 Unknown [id number] 2.16.840.1.889198.3.579. 2.1286 1989 Unknown [id number] 2.16.840.1.122868.3.579. 2.1286 1989 Unknown [id number] 2.16.840.1.155678.3.579. 2.1286 1989 Unknown [id number] 2.16.840.1.037418.3.579. 2.1286 1989 Unknown [id number] 2.16.840.1.530902.3.579. 2.1286 1989 Unknown [id number] 2.16.840.1.223554.3.579. 2.1286 1989 Unknown [id number] 2.16.840.1.967930.3.579. 2.1286 1989 Unknown [id number] 2.16.840.1.117826.3.579. 2.1286 1989 Unknown [id number] 2.16.840.1.448631.3.579. 2.1286 1989 Unknown [id number] 2.16.840.1.291530.3.579. 2.1286 1989 Unknown [id number] 2.16.840.1.161422.3.579. 2.1286 1989 Unknown [id number] 2.16.840.1.858614.3.579. 2.6 1989 Unknown [id number] 2.16.840.1.978063.3.579. 2.1286 1989 Unknown [id number] 2.16.840.1.785740.3.579. 2.1286 1989 Unknown [id number] 2.16.840.1.250747.3.579. 2.1286 1989 Unknown [id number] 2.16.840.1.509246.3.579. 2.1286 1989 Unknown [id number] 2.16.840.1.179450.3.579. 2.1259 1989 Unknown [id number] 2.16.840.1.467761.3.579. 2.9 1989 Unknown [id number] 2.16.840.1.104903.3.579. 2.9 1989 Unknown [id number] 2.16.840.1.203587.3.579. 2.1259 1989 Unknown [id number] 2.16.840.1.385109.3.579. 2.1259 1989 Unknown [id number] 2.16.840.1.637595.3.579. 2.1259 1989 Unknown [id number] 2.16.840.1.041740.3.579. 2.1259 1989 Unknown [id number] 2.16.840.1.092399.3.579. 2.1286 1989 Unknown [id number] 2.16.840.1.026839.3.579. 2.1286 1989 Unknown [id number] 2.16.840.1.949156.3.579. 2.1286 1989 Unknown [id number] 2.16.840.1.331261.3.579. 2.1286 1959 Private Health Insurance [id number] Social History Date Type Detail Facility Start: 12-27-2021 End: 10-09-2022 Tobacco smoking status NHIS Never smoked tobacco [facility] Start: 12-27-2021 End: 10-09-2022 Tobacco use and exposure Smokeless tobacco non-user [facility] Start: 01-23-2024 End: 03-17-2024 Alcoholic beverage intake Lifetime non-drinker (finding) [facility] Start: 02-29-2020 End: 09-15-2023 History of Social function [facility] Start: 02-29-2020 End: 09-15-2023 Tobacco use panel [facility] Start: 11-19-2023 [facility] Start: 1990 Sex assigned at Female [facility] Start: 09-12-2022 Gender identity Identifies as female gender (finding) [facility] Start: 09-12-2022 Sexual orientation Heterosexual (finding) [facility] Start: 01-31-2024 End: 05-06-2024 Alcoholic beverage intake Current non-drinker of alcohol (finding) [facility] Adolescent depressio n screening assessment 15 [facility] Start: 1990 Sex assigned at Not on file [facility] Start: 09-13-2014 Sex Female (finding) [facility] Goals Date Patient Goal Desired Activity /State Personal health goal Comment on above: Formatting of this n ote might be different from the original. Evaluation of progress towards goal: patient to discharge to home. Clinical Notes 02-06-2023 to 05-06-2024 Assessment & Plan Note - Raulito Jimenez, DO - 05/06/2024 1:03 PM EDTAssessment & Plan Note - Raulito Jimenez, DO - 05/06/2024 1:03 PM EDIvelisse Jimenez, DO - 05/06/2024 9:30 AM EDT Note Date & Type Note Facility 05-06-2024 Evaluation + Plan note Associated Problem(s): Anemia affecting fourth Patient with history of anemia and iron malabsorption due to chronic inflammatory bowel disease. Hemoglobin on 05/04 was 9.4 begin iron supplement that she had been prescribed. Advised patient that some of her symptoms of shortness of breath and tachycardia could be a result of low hemoglobin levels [facility] Miscellaneous Notes Associated Problem(s): Anemia affecting fourth Patient with history of anemia and iron malabsorption due to chronic inflammatory bowel disease. Hemoglobin on 05/04 was 9.4 begin iron supplement that she had been prescribed. Advised patient that some of her symptoms of shortness of breath and tachycardia could be a result of low hemoglobin levels during Associated Problem(s): HTN complicating peripregnancy, antepartum, second trimester Patient presents with mildly elevated blood pressure in the office today and mild elevated blood pressure during ED visit on 05/04. No previous history of hypertension during prior pregnancies or prior to this . Due to symptoms in emergency department patient underwent CT angiogram of the chest which was negative for PE but did suggest reflux of contrast into the hepatic veins. I did order a echocardiogram to evaluate heart function. Prescribed labetalol 100 mg 1 tablet twice daily for blood pressure control. Advised patient that if she develops dizziness or lightheadedness, has syncopal episode, or increased shortness of breath or chest pain to seek medical care. documented in this encounter [facility] 05-06-2024 Evaluation + Plan note Associated Problem(s): HTN complicating peripregnancy, antepartum, second trimester Patient presents with mildly elevated blood pressure in the office today and mild elevated blood pressure during ED visit on 05/04. No previous history of hypertension during prior pregnancies or prior to this . Due to symptoms in emergency department patient underwent CT angiogram of the chest which was negative for PE but did suggest reflux of contrast into the hepatic veins. I did order a echocardiogram to evaluate heart function. Prescribed labetalol 100 mg 1 tablet twice daily for blood pressure control. Advised patient that if she develops dizziness or lightheadedness, has syncopal episode, or increased shortness of breath or chest pain to seek medical care. [facility] 05-06-2024 History of Present illness Narrative Images from the original note were not included. [facility] [address] [place] [address] Patient: Juan Luis Storey Date of : 1990 Encounter Date: 05/06/2024 Subjective: Chief Complaint Chief Complaint Patient presents with Er Follow-up History of Present Illness Juan Luis Storey is a 33 y.o. female, established patient, that presents to the office for ER follow up for elevated blood pressure in patient Hypertension Chronicity: Seen at [facility] on 05/04/24 for shortness of breath, palpitations and tachycardia. She is 26 weeks . Condition status: Has been checking blood pressures at home and has been in 140's systolic. Associated symptoms include headaches (Occasional frontal headache. No change frequency or severity of headache but BP is elevated when she checks it with headache), palpitations (Notices when she lays down or right after shortness of breath) and shortness of breath (Experiencing shortness of breath positionally and when she is active. Exertional shortness of breath enough that will stop activity to catch her breath). Pertinent negatives include no blurred vision, chest pain or peripheral edema. (This is 4th . She states no previous issues with elevated blood pressure ) Review of Systems Review of Systems Eyes: Negative for blurred vision. Respiratory: Positive for shortness of breath (Experiencing shortness of breath positionally and when she is active. Exertional shortness of breath enough that will stop activity to catch her breath). Cardiovascular: Positive for palpitations (Notices when she lays down or right after shortness of breath). Negative for chest pain. Neurological: Positive for headaches (Occasional frontal headache. No change frequency or severity of headache but BP is elevated when she checks it with headache). Vital Signs BP 138/78 (BP Site: Left Arm, BP Postition: Sitting) Pulse 110 Temp 36.8 C (98.2 F) (Oral) Ht 165.1 cm (5' 5 ) Wt 86.2 kg (190 lb) LMP 11/05/2023 SpO2 98% BMI 31.62 kg/m Physical Exam Physical Exam Vitals reviewed. Constitutional: General: She is not in acute distress. Appearance: She is not ill-appearing or toxic-appearing. Cardiovascular: Rate and Rhythm: Regular rhythm. Tachycardia present. Pulses: Posterior tibial pulses are 2+ on the right side and 2+ on the left side. Heart sounds: Murmur heard. Systolic murmur is present with a grade of 2/6. Pulmonary: Effort: Pulmonary effort is normal. No respiratory distress. Breath sounds: No wheezing, rhonchi or rales. Abdominal: General: Bowel sounds are normal. There is no distension. Tenderness: There is no abdominal tenderness. Comments: Gravid abdomen Musculoskeletal: Right lower leg: No edema. Left lower leg: No edema. Neurological: Mental Status: She is alert. Cranial Nerves: No cranial nerve deficit. Motor: No tremor. Past Medical, Family, Surgery and Social History Past Medical History: Diagnosis Date Acute pain of left knee 12/23/2018 Anemia Anxiety Bowel obstruction (CMS-HCC) 10/17/2017 Chronic diarrhea Colon stricture ([facility]) 04/02/2018 Crohn's colitis ([facility]) Crohn's disease (CMS-HCC) Crohn's disease of both small and large intestine with intestinal obstruction (CMS-HCC) 03/03/2018 Current chronic use of systemic steroids 03/03/2018 Depression Diarrhea 10/17/2017 Added automatically from request for surgery [id number] Difficulty sleeping 01/13/2019 Gall stones History of maternal fourth degree perineal laceration, currently 06/21/2017 History of prior with short cervix, currently 06/21/2017 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 Iron deficiency anemia due to chronic blood loss 07/17/2018 Microcytic anemia 07/17/2018 Pain in both feet 12/14/2018 Psoriasis of scalp 12/14/2018 Reactive depression 11/09/2018 Vitamin B 12 deficiency 07/08/2019 Past Surgical History: Procedure Laterality Date COLONOSCOPY Left Lateral 10/21/2017 Performed by Sharda Montiel MD at [facility] COLONOSCOPY w/ Bx's & polypectomy N/A 10/08/2021 Performed by Sharda Montiel MD at [facility] ENDOSCOPY EGD N/A 04/02/2018 Performed by Darshana Rae MD at [facility] LAPAROSCOPIC ILEOCECECTOMY, TAKE DOWN OF ILEODUDENAL FISTULA, DRAINAGE OF RETROPERITONEAL ABSCESS, OMENTAL PEDICLE FLAP N/A 04/02/2018 Performed by Jonathan Bautista MD at [facility] Family History Problem Relation Age of Onset Diabetes Mother Hypertension Mother Anemia Mother Heart failure Mother Colon cancer Neg Hx Social History Socioeconomic History Marital status: Single Spouse name: Not on file Number of children: Not on file Years of education: Not on file Highest education level: Not on file Occupational History Not on file Tobacco Use Smoking status: Never Smokeless tobacco: Never Vaping Use Vaping status: Never Used Substance and Sexual Activity Alcohol use: No Drug use: No Sexual activity: Defer Partners: Male Other Topics Concern Not on file Social History Narrative Not on file Social Drivers of Health Financial Resource Strain: Not on file Food Insecurity: No Food Insecurity (05/06/2024) Hunger Screening Food Insecurity - Worry: Never True Food Insecurity - Inability: Never True Transportation Needs: Not on file Physical Activity: Not on file Stress: Not on file Social Connections: Not on file Interpersonal Safety: Not on file Housing Instability: Not on file Allergies and Current Medications Allergies Allergen Reactions Zoloft [Sertraline] Diarrhea Pt reports this is not an allergy Current Outpatient Medications on File Prior to Visit Medication Sig azaTHIOprine (IMURAN) 50 mg tablet Take 3 tablets (150 mg total) by mouth in the morning. [START ON 06/15/2024] cholecalciferol, vitamin D3, 2,000 units tablet Take 1 tablet (2,000 Units total) by mouth in the morning. nitrofurantoin, macrocrystal-monohydrate, (MACROBID) 100 mg capsule Take 1 capsule (100 mg total) by mouth in the morning and 1 capsule (100 mg total) before bedtime. Take for 7 days. ondansetron (ZOFRAN) 4 mg tablet Take 1 tablet (4 mg total) by mouth every 8 (eight) hours as needed for nausea or vomiting. polysaccharide iron complex 180 mg iron capsule Take 391.3 mg by mouth in the morning. vit no.124/iron/folic ( VITAMIN ORAL) Take 1 tablet by mouth in the morning. No current facility-administered medications on file prior to visit. Assessment/Plan: 1. HTN complicating peripregnancy, antepartum, second trimester - Echo complete W/O contrast; Future - labetaloL (NORMODYNE) 100 mg tablet; Take 1 tablet (100 mg total) by mouth in the morning and 1 tablet (100 mg total) before bedtime. Do all this for 30 days. Dispense: 60 tablet; Refill: 0 2. 26 weeks gestation of - Echo complete W/O contrast; Future - folic acid (FOLVITE) 1 mg tablet; Take 1 tablet (1 mg total) by mouth in the morning. - labetaloL (NORMODYNE) 100 mg tablet; Take 1 tablet (100 mg total) by mouth in the morning and 1 tablet (100 mg total) before bedtime. Do all this for 30 days. Dispense: 60 tablet; Refill: 0 3. Anemia affecting fourth 4. HTN, goal below 130/80 HTN complicating peripregnancy, antepartum, second trimester Patient presents with mildly elevated blood pressure in the office today and mild elevated blood pressure during ED visit on 05/04. No previous history of hypertension during prior pregnancies or prior to this . Due to symptoms in emergency department patient underwent CT angiogram of the chest which was negative for PE but did suggest reflux of contrast into the hepatic veins. I did order a echocardiogram to evaluate heart function. Prescribed labetalol 100 mg 1 tablet twice daily for blood pressure control. Advised patient that if she develops dizziness or lightheadedness, has syncopal episode, or increased shortness of breath or chest pain to seek medical care. Anemia affecting fourth Patient with history of anemia and iron malabsorption due to chronic inflammatory bowel disease. Hemoglobin on 05/04 was 9.4 begin iron supplement that she had been prescribed. Advised patient that some of her symptoms of shortness of breath and tachycardia could be a result of low hemoglobin levels during Patient Instructions Will start on labetalol 100 mg twice daily to help control blood pressure with goal of BP less than 140/80. Ordered echocardiogram (ultrasound of the heart) to evaluate the heart as the CT scan of chest you had in ED showed some hepatic vein reflux which could indicate a heart condition Follow-up: Keep appointment with Ob scheduled for May 11. We will contact with results of echocardiogram once available. - Raulito Jimenez DO 05/06/24 1:03 PM [facility] Instructions Raulito Jimenez DO - 05/06/2024 9:30 AM EDT Will start on labetalol 100 mg twice daily to help control blood pressure with goal of BP less than 140/80. Ordered echocardiogram (ultrasound of the heart) to evaluate the heart as the CT scan of chest you had in ED showed some hepatic vein reflux which could indicate a heart condition The following attachments cannot be sent through Care Everywhere.High blood pressure and (Polish)documented in this encounter [facility] 04-26-2024 History of Present illness Narrative Reason [...] (FOLVITE) 1,000 mcg, Oral, Every morning HYDROcodone-acetaminophen ([place]) 5-325 MG tablet 1 tablet, Oral, Every [...] nursing note reviewed. Exam conducted with a urban anthropologist present. Vitals: Estimated body mass index is 30.65 kg/m as calculated from the following: Height as of 8/5/24: 5' 5 . Weight as of this encounter: 184 lb 3.2 oz. BP: 122/76 Patient's last menstrual period was 11/05/2023. ASSESSMENT & PLAN ICD-10-CM 1. Second trimester Z34.92 Urine dip 2. 23 weeks gestation of Z3A.23 Urine dip 3. Crohn's disease with complication, unspecified gastrointestinal tract location ([facility]) K50.919 Return OB: Patient presents today for [...] She does report she has spoken to [facility] but does not yet have a scheduled appointment but will reach back out to them to schedule related to non visualized stomach during anatomy scan. 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 Parish Valdez DO at [facility]. Thank you. Faxed to [phone] Zymfentra 120mg/ml PA was sent to plan via [facility] Schneider number: [id number] documented in this encounter [facility] 04-19-2024 Telephone encounter Note Biologic team, [...] OV note and fax it to her tunnel kiln operator, Dr. Parish Valdez, at [facility]. Thank you. [facility] 04-19-2024 Telephone encounter Note Faxed to [phone] [facility] 04-19-2024 Telephone encounter Note Zymfentra 120mg/ml PA was sent to plan via [facility] Schneider number: [id number] [facility] 04-19-2024 History of Present illness Narrative Infusion start time: 11:10 am Patient here for her Avsola infusion. Patient denies any recent infections or on antibiotics, open wounds, recent/future surgery, vaccinations or insurance changes. 10:50 am IV started with 22g needle to left AC by JAD Arroyo x1 attempt. Patient tolerated well. Avsola x 4 vials Lot# [id number] Exp- 09/10/2027 Time out performed prior to medication administration. Name, , medication(s) verified 1310 patient infusion complete. IV flushed with normal saline. 1313 IV discontinued, catheter intact, vitals WNL. Patient tolerated infusion well documented in this encounter [facility] 04-19-2024 History of Present illness Narrative [facility] Follow Up Visit [...] obstruction (CMS-HCC) 10/17/2017 Chronic diarrhea Colon stricture ([facility]) 04/02/2018 Crohn's colitis ([facility]) Crohn's disease ([facility]) Crohn's disease of both small and large intestine with intestinal obstruction (CMS-HCC) 03/03/2018 Current chronic use of systemic steroids 03/03/2018 Depression Diarrhea 10/17/2017 Added automatically from request for surgery [id number] Difficulty sleeping 01/13/2019 Gall stones History of [...] 10/21/2017 Performed by Sharda Montiel MD at [facility] COLONOSCOPY w/ Bx's & polypectomy N/A 10/08/2021 Performed by Sharda Montiel MD at [facility] EGD N/A 04/02/2018 Performed by Darshana Rae MD at [facility] LAPAROSCOPIC ILEOCECECTOMY, TAKE DOWN OF ILEODUDENAL FISTULA, DRAINAGE OF RETROPERITONEAL ABSCESS, OMENTAL PEDICLE FLAP N/A 04/02/2018 Performed by Jonathan Bautista MD at [facility] SOCIAL HISTORY: Social History Tobacco Use [...] VITAMIN B12: Lab Results Component Value Date [id number] 01/26/2024 FOLATE: Lab Results Component Value [...] a hysterectomy has been advised by her fleece tier, but that she was not ready to proceed. 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 [address] units q.week x8 and then back to [...] findings of the ongoing PIANO study, The [place] Consensus Statements for the Management of Inflammatory Bowel Disease in , and the clinical care pathway released by the AGA. - AGA clinical practice update on -related gastrointestinal and liver disease: expert review (Gastroenterology. 2023;167(5):3273-7567). - Johnathan Farr, Rey C, Ama N, et al. Inflammatory bowel disease in clinical care pathway: a report from the wel[place] gastroenterological association [employer] project working group. Gastroenterology. 2019;156(5):5719-8523. - Johnathan Farr, Yady RA, Lobito CD. [...] and strongly recommended annual f/u with a behavioral medical director and regular use of skin protection -- [...] procedures Referring and communicating with other health adult care provider (not separately reported) Documenting clinical [...] for your understanding. Camila Montiel MD, [place] [address] PH: [phone] Juan Luis was seen today for follow-up. Diagnoses and all orders for this visit: Thrombocytopenia (CMS-HCC) - CBC auto differential; Future Crohn's disease with complication, unspecified gastrointestinal tract location (CMS-HCC) - Vitamin D 25 hydroxy; Future - Vitamin B12; Future documented in this encounter [facility] 04-19-2024 Instructions Sharda Montiel MD - 04/19/2024 10:00 AM EDT Labs - from today, 02/02/25, and 01/27/25 I recommend hepatitis A vaccines with your PCP, the health department, or any pharmacy; this is typically a series of 2 injections 3. coupling machine operator high dose vitamin D from the pharmacy Preventative Health Maintenance for Crohn's and ulcerative colitis -- Skin cancer prevention: I recommend annual follow up with a behavioral medical director and regular use of skin protection given the increased risk of skin cancer, especially in patients on immunomodulator (Imuran / azathioprine / 6MP) or biologic medications (Remicade, Humira, Enyvio) -- Cervical cancer prevention: I recommend annual follow up with your tunnel kiln operator doctor with annual pap smears -- Tobacco [...] would be interested in meeting with a pig furnace operator please let me or your family [...] the role of diet in IBD: [email or web address] documented in this encounter [facility] 04-14-2024 History of Present illness Narrative [...] nursing note reviewed. Exam conducted with a urban anthropologist present. Vitals: Estimated body mass index is [...] Parish Valdez DO documented in this encounter [facility] 03-17-2024 History of Present illness Narrative Reason [...] without difficulty and patient was given [facility] order to have obtained. Orders Placed This Encounter Procedures US OB 14+ weeks anatomy scan CHLAMYDIA TRACHOMATIS (GENITO/STI) Neisseria gonorrhea DNA probe, direct Alpha fetoprotein, maternal Follow Up: Patient is to return to our office in 4 weeks for routine OB appointment Documented by SIMI Frazier on behalf of: SIMI Frazier documented in this encounter [facility] 03-08-2024 History of Present illness Narrative Infusion start time: 1040 Patient here for Avsola infusion. Patient denies any recent infections or on antibiotics, open wounds, recent/future surgery, vaccinations or insurance changes. IV started with 22g needle to left forearm by Yaquelin Barba RN x1 attempt. Patient tolerated well. Avsola Lot# [id number] 2vials Exp- 09/10/2027 Lot#[id number] 2 vials Exp08/10/2027 Time out performed prior to medication administration. Name, , medication(s) verified 10:40 am Time out performed with Yaquelin STREET. Avsola to be mixed and administered to patient per current treatment plan orders 1240 patient infusion complete. IV flushed with 10 ml normal saline. IV discontinued, catheter intact, vitals WNL. Patient tolerated infusion well documented in this encounter [facility] 02-18-2024 History of Present illness Narrative Reason [...] Diagnosis Date Acute Crohn's disease with complication (CMS/[facility]) At standard risk for fall [...] nursing note reviewed. Exam conducted with a urban anthropologist present. Vitals: Estimated body mass index is [...] and stay away from [facility]. Patient has been consulted regarding any [...] Parish Valdez DO documented in this encounter [facility] 01-23-2024 History of Present illness Narrative [...] Anes PTL Lv 4 Current 3 Term 18 38w0d 7 lb 11 oz F Vag-Spont [...] Diagnosis Date Acute Crohn's disease with complication (CMS/[facility]ERLY [facility]) At standard risk for fall [...] and stay away from [facility]. Patient has also been advised to [...] Veronica Klein LPN documented in this encounter [facility] 12-17-[address] Montiel, Patient [...] send a letter to the family doctor/PCP, Plumber Assistant, and truck loader and unloader advising against the use of live vaccines for the 1st 6 months of the baby's life and to monitor the baby closely for any signs of infection. Please send her the following as well: [email or web address]/[email or web address]-[email or web address]-[email or web address]-[email or web address]-[email or web address]-[email or web address] -[email or web address]-msv-[email or web address] I recommend an OV w me in 02/2024 or 03/2024 Please disregard notes below. Summary These recommendations are in accordance with the findings of the ongoing PIANO study, The [place] Consensus Statements for the Management of Inflammatory [...] clinical care pathway: a report from the [employer] [facility] project working group. Gastroenterology. 2019;156(5):6411-9292. Spoke with patient regarding recommendations, sent via tribr. Will call patient back when March schedule is out, she needs Mondays. documented in this encounter [facility] 12-17-[address] Montiel, Patient called stating she took a urine test this past Friday and it was positive. She receives Inflectra 400 mg every 6 weeks for her Crohn's. She also takes Imuran 150 mg po daily. Ilesha is inquiring if she can continue taking her Imuran and Inflectra infusions? Please advise, thank you [facility] 12-17-2023 Telephone encounter Note Please let her [...] send a letter to the family doctor/PCP, Plumber Assistant, and truck loader and unloader advising against the use of live vaccines for the 1st 6 months of the baby's life and to monitor the baby closely for any signs of infection. Please send her the following as well: [email or web address]/cpiur-gamuw-[email or web address]-[email or web address]-[email or web address]-mj-[email or web address]-[email or web address] -[email or web address]-pio-[email or web address] I recommend an OV w me in 02/2024 or 03/2024 Please disregard notes below. Summary These recommendations are in accordance with the findings of the ongoing PIANO study, The [place] Consensus Statements for the Management of Inflammatory [...] clinical care pathway: a report from the [employer] [facility] project working group. Gastroenterology. 2019;156(5):9692-6197. [facility] 12-17-2023 Telephone encounter Note Spoke with patient regarding recommendations, sent via tribr. Will call patient back when March schedule is out, she needs Mondays. [facility] 12-12-2023 History of Present illness Narrative Infusion start time: 10:50 am Patient here for Inflectra infusion. Patient denies any recent infections or on antibiotics, open wounds, recent/future surgery, vaccinations or insurance changes. 10:30 am IV started with 22g needle to right hand by JAD Arroyo x1 attempt. Patient tolerated well. Inflectra x 4 vials Lot# [id number] Exp- 04/09/2028 Time out performed prior to medication administration. Name, , medication(s) verified 11:50 am patient infusion complete. IV flushed with 10 ml normal saline. IV discontinued, catheter intact, vitals WNL. Patient tolerated infusion well documented in this encounter [facility] 12-01-2023 History of Present illness Narrative Images from the original note were not included. [facility] [address] [place] [address] [place] [phone] 12/01/2023 Chief Complaint Patient presents with Follow-up [...] small and large intestine with intestinal obstruction ([facility]) Other Visit Diagnoses Iron deficiency - Primary [...] participate in this patient's care. DOMINIQUE MOYA APRN-SHELF FILLER 12/01/2023 2:56 PM Total time spent was 30 minutes: Preparing to see the patient (e.g., review of tests) Obtaining and/or reviewing separately obtained history Performing a medically appropriate examination and/or evaluation Counseling and educating the patient/family/caregiver Ordering medications, tests, or procedures Referring and communicating with other health adult care provider (not separately reported) Documenting clinical information in the electronic or other health record Independently interpreting results (not separately reported) and communicating results to the patient/family/caregiver Care coordination (not separately reported) ---- Please note that portions of this note may have been generated using voice recognition Captify dictation software. Although every effort was made to ensure the accuracy of any automated transcriptions, some errors may have occurred. TERA Leyva 12/01/23 1502 documented in this encounter [facility] 12-01-2023 Instructions TERA Leyva - 12/01/2023 2:30 PM EDT Pending labs If iron is low, will order Injectafer IV If iron is low, will repeat labs in 3 months CBC-d iron panel ferritin If iron is normal, just follow up yearly as below Follow up yearly with labs same as above documented in this encounter [facility] 10-31-2023 History of Present illness Narrative IV Infusion start time: 944. Patient here for Inflectra infusion. Patient denies any recent infections or on antibiotics, open wounds, recent/future surgery, vaccinations or insurance changes. IV started with 22g needle to left hand by JAD Arroyo x1 attempt. Patient tolerated well. Inflectra x 4 vials Lot# [id number] Exp- [id number] Time out performed prior to medication administration. Name, , medication(s) verified 11:13 am patient infusion complete. IV discontinued, catheter intact, vitals WNL. Patient tolerated infusion well documented in this encounter [facility] 10-31-2023 History of Present illness Narrative [facility] Follow Up Visit CHIEF COMPLAINT: Chief Complaint [...] obstruction (CMS-HCC) 10/17/2017 Chronic diarrhea Colon stricture ([facility]) 04/02/2018 Crohn's colitis ([facility]) Crohn's disease ([facility]) Crohn's disease of both small and large intestine with intestinal obstruction (CMS-HCC) 03/03/2018 Current chronic use of systemic steroids 03/03/2018 Depression Diarrhea 10/17/2017 Added automatically from request for surgery [id number] Difficulty sleeping 01/13/2019 Gall stones History of [...] 10/21/2017 Performed by Sharda Montiel MD at [facility] COLONOSCOPY w/ Bx's & polypectomy N/A 10/08/2021 Performed by Sharda Montiel MD at [facility] EGD N/A 04/02/2018 Performed by Darshana Rae MD at [facility] LAPAROSCOPIC ILEOCECECTOMY, TAKE DOWN OF ILEODUDENAL FISTULA, DRAINAGE OF RETROPERITONEAL ABSCESS, OMENTAL PEDICLE FLAP N/A 04/02/2018 Performed by Jonathan Bautista MD at [facility] SOCIAL HISTORY: Social History Tobacco Use [...] VITAMIN B12: Lab Results Component Value Date [id number] 1,378 (H) 08/02/2021 FOLATE: Lab Results Component [...] a hysterectomy has been advised by her fleece tier, but that she was not ready to proceed. 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 [address] units [place].week x8 and then back to [...] and strongly recommended annual f/u with a behavioral medical director and regular use of skin protection -- [...] procedures Referring and communicating with other health adult care provider (not separately reported) Documenting clinical [...] for your understanding. Camila Montiel MD, MPH [facility] [place] [place] [address] PH: [phone] Juan Luis was seen today for follow-up. [...] in the morning. documented in this encounter [facility] 10-31-2023 Instructions Sharda Montiel MD - [...] I recommend annual follow up with a behavioral medical director and regular use of skin protection given the increased risk of skin cancer, especially in patients on immunomodulator (Imuran / azathioprine / 6MP) or biologic medications (Remicade, Humira, Enyvio) -- Cervical cancer prevention: I recommend annual follow up with your tunnel kiln operator doctor with annual pap smears -- Tobacco [...] would be interested in meeting with a pig furnace operator please let me or your family [...] [email or web address] documented in this encounter [facility] 09-17-2023 History of Present illness Narrative Subjective [...] regarding her care. She is currently at [facility]. She is in a vegetative state. [...] of major depressive disorder without prior episode ([facility]) - citalopram (CeleXA) 20 mg tablet; Take 1.5 tablets (30 mg total) by mouth in the morning. Crohn's disease of both small and large intestine with intestinal obstruction ([facility]) TERA Church 09/17/23 1443 documented in this encounter [facility] 09-15-2023 Miscellaneous Notes Refill infusion orders received; approved for now. Must make 10/31/23 OV or can no longer receive infusions here until she is seen. Tried to call patient, busy signal. Sent tribr message. Patient called. Updated. She verbalized understanding Thank You documented in this encounter [facility] 09-15-2023 Telephone encounter Note Refill infusion orders received; approved for now. Must make 10/31/23 OV or can no longer receive infusions here until she is seen. [facility] 09-15-2023 Telephone encounter Note Tried to call patient, busy signal. Sent [employer] message. [facility] 09-15-2023 Telephone encounter Note Patient called. Updated. She verbalized understanding Thank You [facility] 09-15-2023 History of Present illness Narrative IV Infusion start time: 10:30 am Patient here for Inflectra infusion. Patient denies any recent infections or on antibiotics, open wounds, recent/future surgery, vaccinations or insurance changes. IV started with 22g needle to right AC by JAD Arroyo x1 attempt. Patient tolerated well. Inflectra x 4 vials Lot# [id number] Exp- [id number] Time out performed prior to medication administration. Name, , medication(s) verified 12:10 pm patient infusion complete. IV discontinued, catheter intact, vitals WNL. Patient tolerated infusion well documented in this encounter [facility] 09-03-2023 Miscellaneous Notes Patient presented to front desk lead window and paid for FMLA today. FMLA faxed. documented in this encounter [facility] 09-03-2023 Telephone encounter Note Patient presented to front desk lead window and paid for FMLA today. FMLA faxed. [facility] 09-03-2023 History of Present illness Narrative Video Visit via Real-time Synchronous Audiovisual Provider Location: [facility] [address] [place] [phone] Patient Location: Patient's home Video Visit Consent [...] that there are some limitations compared to jfjc-qu-mbxm evaluations. The patient consented to the presence [...] Church 09/03/23 1308 documented in this encounter [facility] 08-20-2023 History of Present illness Narrative [...] Church 08/20/23 1530 documented in this encounter [facility] 08-04-2023 History of Present illness Narrative IV Infusion start time: 1318. Patient here for Inflectra infusion. Patient denies any recent infections or on antibiotics, open wounds, recent/future surgery, vaccinations or insurance changes. IV started with 22g needle to left AC by JAD Arroyo x1 attempt. Patient tolerated well. Inflectra x 4 vials Lot# [id number] Exp- [id number] Time out performed prior to medication administration. [...] of info given. documented in this encounter [facility] 06-18-2023 Miscellaneous Notes Patient has missed the following appointments: 06/17/23 06/10/23 04/14/23 06/17/22 11/10/20 See other note for follow up documented in this encounter [facility] 06-18-2023 Telephone encounter Note Patient has missed the following appointments: 06/17/23 06/10/23 04/14/23 06/17/22 11/10/20 [facility] 06-18-2023 Telephone encounter Note See other note for follow up [facility] 06-10-2023 Miscellaneous Notes SANIYA Cheatham and [...] 06/10/23). No show policy letter sent via [employer] and certified mail. documented in this encounter [facility] 06-10-2023 Telephone encounter Note SANIYA Cheatham and Dr. Montiel, Patient was scheduled today for her Inflectra infusion; was a NO SHOW. She also no showed 04/14/23 Call placed to patient with no answer. Message left for patient to call office back in regards to rescheduling her infusion. [facility] 06-10-2023 Telephone encounter Note Reviewing the chart it appears she has had multiple no shows even prior to this. Please send no-show / late cancellation fee notice and remind her of the no-show policy and that we are tracking this information. If she no-shows again, she may be discharged from the practice per office policy. Thank you. [facility] 06-10-2023 Telephone encounter Note Patient called and rescheduled 06/18/23 [facility] 06-10-2023 Telephone encounter Note Chaparrita, Patient NO SHOWED for her OV yesterday and did not come to her rescheduled infusion today (she NO SHOWED 06/10/23). [facility] 06-10-2023 Telephone encounter Note No show policy letter sent via [employer] and certified mail. [facility] 04-21-2023 Miscellaneous Notes Due for OV [...] at 10:30 am documented in this encounter [facility] 04-21-2023 Telephone encounter Note Due for OV [facility] 04-21-2023 Telephone encounter Note There is nothing available for a recheck OV , can we use a new patient slot? [facility] 04-21-2023 Telephone encounter Note Yes that's ok [facility] 04-21-2023 Telephone encounter Note Left message for patient to call and schedule. [facility] 04-21-2023 Telephone encounter Note Message left for patient to call back. [facility] 04-21-2023 Telephone encounter Note Patient is scheduled with Meaghan on June 16 at 11:15 am. Infusion is scheduled on June 09 at 10:30 am [facility] 04-21-2023 History of Present illness Narrative 1020 am Patient here for Inflectra infusion. Patient denies any recent infections, open wounds, recent/future surgery, or insurance changes . IV started with 22g needle to right hand by raf street x 1 attempt. Patient tolerated well. Inflectra x 4 vials Lot #[id number] Exp date 12/11/2027 Time out performed with Raf Delatorre RN. 400 mg of Inflectra to be mixed and administered to patient per current treatment plan orders. 1305 patient infusion complete. IV discontinued, catheter intact, vitals WNL. Patient tolerated infusion well documented in this encounter [facility] 04-14-2023 Miscellaneous Notes Patient missed the visit. RN called patient and RN rescheduled patient for 04/21/2023. documented in this encounter [facility] 04-14-2023 Telephone encounter Note Patient missed the visit. RN called patient and RN rescheduled patient for 04/21/2023. [facility] 03-31-2023 Miscellaneous Notes RN was told that patient is calling regarding her insurance. The phone call was then transferred back to the infusion room. Patient states she lost her secondary insurance and wanted to know to what the amount she will be responsible for. RN informed patient to call her insurance company to find out that information. documented in this encounter [facility] 03-31-2023 Telephone encounter Note RN was told that patient is calling regarding her insurance. The phone call was then transferred back to the infusion room. Patient states she lost her secondary insurance and wanted to know to what the amount she will be responsible for. RN informed patient to call her insurance company to find out that information. [facility] 02-20-2023 History of Present illness Narrative Images from the original note were not included. [address] [place] [phone] Patient: Juan Luis Storey Date of [...] ANDERS MD Family Medicine Physician [facility] 02/20/23 This note was completed with voice recognition software. The document was reviewed for errors however some may still be present. Please do not hesitate to contact/Epic ms the author to verify any questions/concerns. documented in this encounter [facility] 02-17-2023 History of Present illness Narrative 1145 Patient here for Inflectra infusion. Patient denies any recent infections, open wounds, recent/future surgery, or insurance changes . Site cleansed with alcohol. IV started with 22g needle by Yaquelin Barba RN in right hand. Patient tolerated well. Lot # [id number] Exp 07/11/27 1422 patient infusion complete. IV discontinued at 1422. Patient tolerated infusion well. documented in this encounter [facility] 02-06-2023 History of Present illness Narrative [...] stable condition. documented in this encounter [facility] Evaluation note Diagnosis Missed menses , unspecified gestational age Encounter for supervision of normal first in first trimester headache in first trimester documented in this encounter [facility] Healthcare[facility]* Diagnosis Therapeutic drug monitoring- Primary Encounter for therapeutic drug monitoring [facility] Diagnosis Second trimester state, incidental 15 weeks gestation of H/O oligohydramnios in prior , currently documented in this encounter [facility] HealthcareEvaluation note* Diagnosis Crohn's disease of both small and large intestine with intestinal obstruction (CMS-HCC)- Primary documented in this encounter [facility]* Diagnosis Second trimester state, incidental 19 weeks gestation of Vaginal discharge Leukorrhea, not specified as infective STD exposure Screening, , for anatomic survey Encounter for anatomic survey documented in this encounter [facility] HealthcareEvaluation note* Diagnosis 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 deficiency anemia, unspecified Iron malabsorption Other specified intestinal malabsorption documented in this encounter [facility]* Diagnosis Crohn's disease of both small and large intestine with intestinal obstruction (CMS-HCC)- Primary documented in this encounter [facility]* Diagnosis Crohn's disease of both small and large intestine with intestinal obstruction (CMS-HCC)- Primary documented in this encounter [facility]* Diagnosis Reactive airway disease with acute exacerbation, unspecified asthma severity, unspecified whether persistent- Primary Shortness of breath COVID-19 Sinusitis, unspecified chronicity, unspecified location documented in this encounter [facility]* Diagnosis Crohn's disease of both small and large intestine with intestinal obstruction (CMS-HCC)- Primary documented in this encounter [facility]* Diagnosis Anxiety- Primary Anxiety state, unspecified documented in this encounter [facility]* Diagnosis Crohn's disease of both small and large intestine with intestinal obstruction (CMS-HCC)- Primary documented in this encounter [facility] note* Diagnosis Reactive depression- Primary documented in this encounter [facility]* Diagnosis Crohn's disease of both small and large intestine with intestinal obstruction (CMS-HCC)- Primary documented in this encounter [facility]* Diagnosis Current moderate episode of major depressive disorder without prior episode (CMS-HCC)- Primary Crohn's disease of both small and large intestine with intestinal obstruction (CMS-HCC) documented in this encounter [facility]* Diagnosis Therapeutic drug monitoring- Primary Encounter for therapeutic drug monitoring Crohn's disease of both small and large intestine with other complication (CMS-HCC) documented in this encounter [facility]* Diagnosis Crohn's disease of both small and large intestine with intestinal obstruction (CMS-HCC)- Primary [facility] Diagnosis Iron deficiency- Primary [...] deficiency anemia, unspecified documented in this encounter [facility]* Diagnosis Crohn's disease of both small and large intestine with intestinal obstruction (CMS-HCC)- Primary documented in this encounter [facility]* Diagnosis 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 Other specified intestinal malabsorption Iron deficiency anemia, unspecified documented in this encounter [facility]* Diagnosis Diabetes mellitus screening Screening for diabetes mellitus Second trimester state, incidental 23 weeks gestation of documented in this encounter [facility] HealthcareEvaluation note* Diagnosis Thrombocytopenia (CMS-HCC)- Primary Unspecified thrombocytopenia Crohn's disease with complication, unspecified gastrointestinal tract location (CMS-HCC) documented in this encounter [facility]* Diagnosis Crohn's disease of colon with other complication (CMS-HCC)- Primary documented in this encounter [facility]* Diagnosis Ulcerative colitis with other complication, unspecified location (CMS-HCC)- Primary documented in this encounter [facility]* Diagnosis Second trimester state, incidental 23 weeks gestation of Crohn's disease with complication, unspecified gastrointestinal tract location (CMS/HCC) documented in this encounter [facility] HealthcareEvaluation note* Diagnosis HTN complicating peripregnancy, antepartum, second trimester- Primary 26 weeks gestation of Anemia affecting fourth HTN, goal below 130/80 [facility] [...] on filedocumented in this encounter [facility]* Attachments The following attachments cannot be sent through Care Everywhere. * Anxiety Discharge Instructions, Adult (Polish) documented [facility] System[facility]ructionsNot on file documented in this encounterPro[facility] SystemInstructionsNot on file documented in this encounter[facility] SystemInstructionsNot on file [facility]* Attachments The following attachments cannot be sent through Care Everywhere. * Depression (Polish) documented [facility] SystemInstructionsNot on file documented in this encounterPro[facility] SystemInstructionsNot on file [facility] Purpose Family History No Family [...] section and content) DATE CREATED AUTHOR 08/05/2017 [facility] DATE CREATED AUTHOR AUTHOR'S ORGANIZ ATION 06/26/2022 [facility] DATE CREATED AUTHOR AUTHOR'S ORGANIZ ATION 02/03/2024 [facility] DATE CREATED AUTHOR AUTHOR'S ORGANIZ ATION 04/25/2024 [facility] DATE CREATED AUTHOR AUTHOR'S ORGANIZ ATION 04/27/2024 [facility] DATE CREATED AUTHOR AUTHOR'S ORGANIZ ATION 05/07/2024 [facility] Reason for Visit (unrecogniz ed section and [...] BIOSIMILAR, (AVSOLA), 10 MG INFUSION Hilary Aviles, ESTATE MANAGER-SHELF FILLER [address] [facility] [address], [place] [address] Phone: tel: fax: [facility] [address] [place] [phone] Phone: tel: fax: Referral ID Status Reason Start Date Expiration Date V isits Requested Visits Authorized [id number] Authorized 01/20/2024 01/18/2025 9 9 Reason Comments Outpatient Infusion Injectafer Specialty Diagnoses / Procedures Referred By Carroll juan Referred To Contact Diagnoses Iron deficiency anemia due to chronic blood loss Iron deficiency anemia, unspecified Iron malabsorption Procedures FL INJ FERRIC CARBOXYMALTOS 1MG Mj Pizarro MD [address] [place] [address] [facility] [address] [place] [address] Referral ID Status Reason Start Date Expiration Date V isits Requested Visits Authorized [id number] Authorized 01/24/2023 07/23/2023 2 2 Reason Comments Outpatient Infusion Inflectra Specialty Diagnoses / Procedures Referred By Contac t Referred To Contact Gastroenterology Diagnoses Crohn's disease of both small and large intestine with intestinal obstruction Inflectra 5mg/kg every 6 weeks, Auth'd for 9 visits [id number], SA/Crohns Procedures FL INFLIXIMAB INJECTION INFUSION Hilary Aviles, ESTATE MANAGER-SHELF FILLER [address] [facility] [address], [place] [address] [facility]ive [facility] [address] [place] [phone] Referral ID Status Reason Start Date Expiration Date V isits Requested Visits Authorized [id number] Pending Review 07/26/2022 07/26/2023 9 9 Reason Comments Asthma Reason Comments Outpatient Infusion inflectra Specialty Diagnoses / Procedures Referred By Contac t Referred To Contact Gastroenterology Diagnoses Crohn's disease of both small and large intestine with intestinal obstruction Procedures FL INFLIXIMAB INJECTION Referral ID Status Reason Start Date Expiration Date V isits Requested Visits Authorized [id number] Authorized 04/01/2023 04/01/2024 9 9 Reason Comments Mental Health Problem Reason Comments FMLA Reason Comments Anxiety Depression Reason Comments Follow-up Patient is here for a follow up and denies any issues. Reason Comments Follow-up Specialty Diagnoses / Procedures Referred By Contac t Referred To Contact Gastroenterology Diagnoses Crohn's disease of both small and large intestine with intestinal obstruction Procedures FL INFLIXIMAB INJECTION Reason Comments Outpatient Infusion Specialty Diagnoses / Procedures Referred By Contac t Referred To Contact Gastroenterology Diagnoses Crohn's disease of both small and large intestine with intestinal obstruction [place] 5mg/kg (400mg) every 6 weeks/ Auth'd 01.20.24 - 01.18./ visits/ [id number] Dr. Montiel NO ACCELERATED INFUSION Procedures INJECTION, INFLIXIMAB-AXXQ, BIOSIMILAR, (AVSOLA), 10 MG INFUSION Hilary Aviles APRN-SHELF FILLER [address], [place] [address] Phone: tel: fax: [facility] [address] [phone] Phone: tel: fax: Reason Comments Er Follow-up Care Teams (unrecognized sec tion and content) Etl Manager Relationship Specialty Start Date End Date Hilary Aviles MD [address] [place] [phone] Referring Physician Nurse Practitioner 10/08/22 Etl Manager Relationship Specialty Start Date End Date Hilary Aviles APRN-SHELF FILLER [address] [facility] [address], [place] [address] PCP - General Family Medicine 01/03/24 Etl Manager Relationship Specialty Start Date End Date Hilary Aviles MD [address] [place] [phone] Referring Physician Nurse Practitioner 10/08/22 Etl Manager Relationship Specialty Start Date End Date Hilary Aviles MD [address] [place] [address] Referring Physician Nurse Practitioner 10/08/22 Etl Manager Relationship Specialty Start Date End Date Hilary Aviles MD [address] [place] [address] Referring Physician Nurse Practitioner 10/08/22 Etl Manager Relationship Specialty Start Date End Date Hilary Aviles APRN-SHELF FILLER [address], [place] [address] PCP - General Family Medicine 01/03/24 Etl Manager Relationship Specialty Start Date End Date Hilary Aviles MD [address] [place] [address] Referring Physician Nurse Practitioner 10/08/22 Etl Manager Relationship Specialty Start Date End Date Hilary Aviles MD [address] [place] [address] [place] [address] Referring Physician Nurse Practitioner 10/08/22 Etl Manager Relationship Specialty Start Date End Date Hilary Aviles MD [address] [place] [address] Referring Physician Nurse Practitioner 10/08/22 Etl Manager Relationship Specialty Start Date End Date Hilary Aviles APRN-SHELF FILLER [address], [place] [address] PCP - General Family Medicine 12/26/22 Etl Manager Relationship Specialty Start Date End Date Hilary Aviles APRN-SHELF FILLER [address], [place] [address] PCP - General Family Medicine 12/26/22 Etl Manager Relationship Specialty Start Date End Date Hilary Aviles [facility]NED[facility] [address], [place] [address] PCP - General Family Medicine 12/26/22 Etl Manager Relationship Specialty Start Date End Date Hilary Aviles [facility]ED[facility] [address], [place] [address] PCP - General Family Medicine 12/26/22 Etl Manager Relationship Specialty Start Date End Date Hilary Aviles [facility]ED[facility] [address], [place] [address] PCP - General Family Medicine 12/26/22 Etl Manager Relationship Specialty Start Date End Date Hilary Aviles [facility] [address], [place] [address] PCP - General Family Medicine 12/26/22 Etl Manager Relationship Specialty Start Date End Date Hilary Aviles [facility] [address], [place] [address] PCP - General Family Medicine 12/26/22 Etl Manager Relationship Specialty Start Date End Date Hilary Aviles ESTATE MANAGERED[facility] [address], [place] [address] PCP - General Family Medicine 12/26/22 Etl Manager Relationship Specialty Start Date End Date Hilary Aviles [facility] [address], [place] [address] PCP - General Family Medicine 12/26/22 Etl Manager Relationship Specialty Start Date End Date Hilary Aviles [facility] [address], [place] [address] PCP - General Family Medicine 12/26/22 Etl Manager Relationship Specialty Start Date End Date Hilary Aviles [facility]ED[facility] [address], [place] [address] PCP - General Family Medicine 12/26/22 Etl Manager Relationship Specialty Start Date End Date Hilary Aviles [facility]ED[facility] [address], [place] [address] PCP - General Family Medicine 12/26/22 Etl Manager Relationship Specialty Start Date End Date Hilary Aviles [facility]ED[facility] [address], [place] [address] PCP - General Family Medicine 12/26/22 Etl Manager Relationship Specialty Start Date End Date Hilary Aviles [facility]ED[facility] [address], [place] [address] PCP - General Family Medicine 12/26/22 Etl Manager Relationship Specialty Start Date End Date Hilary Aviles [facility]ED[facility] [address], [place] [address] PCP - General Family Medicine 01/03/24 Etl Manager Relationship Specialty Start Date End Date Hilary Aviles APRN-SHELF FILLER [address], [place] [address] PCP - General Family Medicine 01/03/24 Etl Manager Relationship Specialty Start Date End Date Hilary Aviles MD [address] [place] [address] Referring Physician Nurse Practitioner 10/08/22 Etl Manager Relationship Specialty Start Date End Date Hilary Aviles APRN-SHELF FILLER [address], [place] [address] PCP - General Family Medicine 01/03/24 Etl Manager Relationship Specialty Start Date End Date Hilary Aviles APRN-SHELF FILLER [address], [place] [address] PCP - General Family Medicine 01/03/24 Etl Manager Relationship Specialty Start Date End Date Hilary Aviles APRN-SHELF FILLER [address], [place] [address] PCP - General Family Medicine 01/03/24 Etl Manager Relationship Specialty Start Date End Date Hilary Aviles MD [address] [place] [address] Referring Physician Nurse Practitioner 10/08/22 Etl Manager Relationship Specialty Start Date End Date Hilary Aviles APRN-SHELF FILLER [address], [place] [address] PCP - General Family Medicine 01/03/24 FOR [...] BE BASED ON THE PRIMARY CLINICAL RECORDS. [facility] [facility]. provides no warranty or guarantee of the accuracy or completeness of information in this document.
[2024-05-08 08:30] LABS: Glucose Fasting 90 mg/dL (<95)
[2024-05-08 09:58] LABS: Glucose 1 Hour 159 mg/dL (<180)
[2024-05-08 10:40] LABS: Glucose 2 Hour 142 mg/dL (<155)
[2024-05-08 11:31] LABS: Glucose 3 Hour 117 mg/dL (<140)
== END 2024-05-08 08:01 | disposition home or self-care (01) ==
LOC: LAB 08:00
PROVIDERS: PCP Nurse Practitioner; Visit Provider Obstetrics & Gynecology
DX: R73.09 Other abnormal glucose (principal)
CPT/HCPCS: 36415; 82951; 82952

== ENCOUNTER 2024-05-10 07:05 | Observation (INO) | payer OTHER, MEDICAID, SELFPAY ==
[2024-05-10] VITALS (8 sets, daily range): BP systolic 123–163; BP diastolic 66–107; PULSE 81–102; TEMP 37.2; O2SAT 98; BMI 31.2
--- OUTSIDE RECORDS SUMMARY | 2024-05-10 07:11 | XMS_ITS | CCD ---
Author Organization [facility] Care Team Providers Care Ostomy Nurse Name Role Phone ADAMOWICZ, SAMARA J Unavailable Unavailable ADAMOWICZ, SAMARA J Unavailable Unavailable ADAMOWICZ, SAMARA J Unavailable Unavailable ADAMOWICZ, SAMARA J Unavailable Unavailable ADAMOWICZ, SAMARA J Unavailable Unavailable ADAMOWICZ, SAMARA J Unavailable Unavailable ADAMOWICZ, SAMARA J Unavailable Unavailable ADAMOWICZ, SAMARA J Unavailable Unavailable SEBASTIAN HERRING Attending Unavailable SEBASTIAN HERRING Consulting Unavailable SEBASTIAN HERRING Ad[facility] Unavailable Hilary Aviles MD Unavailable MJ PIZARRO Referring Unavailable FRANK AVILESITH A Primary Care Unavailable MJ PIZARRO Referring Unavailable HILARY AVILES A Primary Care Unavailable LYNDSEY ANDERS Attending Unavailable LYNDSEY ANDERS Referring Unavailable TRACI HILARY A Primary Care Unavailable DOMINIQUE MOYA Attending Unavailable HILARY AVILES Referring Unavailable HILARY AVILES Primary Care Unavailable HILARY AVILES A Primary Care Unavailable RAULITO SIDDIQUI Attending Unavailab HILARY Ivan A Primary Care Unavailable SESAR PRICE Attending Unavailable Traci REPORT MANAGER-PIT RECORDER, Hilary A Primary Care Provi lazarus Traci REPORT MANAGER-PIT RECORDER, Hilary A Primary Care Provi lazarus HILARY AVILES Referring Unavailable HILARY AVILES A Primary Care Unavailable SHARDA MONTIEL Referring Unavailable HILARY AVILES A Primary Care Unavailable HILARY AVILES A [...] Unavailable RTACI, HILARY A Primary Care Unavailable TRACI, HILARY A Referring Unavailable TRACI, HILARY A Primary Care Unavailable YAQUELIN HORNE Attending Unavailable COURTNEY, PARISH Attending Unavailable COURTNEY, PARISH Attending Unavailable YAQUELIN HORNE Attending Unavailable COURTNEY, PARISH Attending Unavailable Traci REPORT MANAGER-PIT RECORDER, Hilary A Primary Care Provi lazarus TRACI, [...] Sertraline; Translations: [SERTRALINE] Drug Allergy 11-09-2018 [facility] Medications Current Medications Medication Drug Class(es) Dates Sig (Normalized) Sig (Original) acetaminophen 325 mg / HYDROcodone bitartrate 5 mg oral tablet (4 sources) Opioid Agonist Start: 04-20-2024 take 1 tablet by mouth every six hours for pain HYDROcodone-acetaminop hen ([place]) 5-325 MG tablet Indications: Abdominal pain, unspecified abdominal location , Crohn's disease with complication, unspecified gastrointestinal tract location (CMS/HCC) Take 1 tablet by mouth every 6 (six) hours if needed for moderate pain or severe pain for up to 15 doses 15 tablet 04/20/2024 Active [id number] 200 actuat albuterol 0.09 mg/actuat metered dose [...] the morning. 270 tablet 1 10/31/2023 Active cholecalciferol 0.05 mg oral tablet (20 [...] oral tablet (20 sources) Start: 08-02-2021 End: 05-06-2024 take 1 tablet by mouth in the morning folic acid (FOLVITE) 1 mg tablet Indications: 26 weeks gestation of Take 1 tablet (1 mg total) by mouth in the morning. 05/06/2024 Active folic acid 0.4 mg / vitamin b12 1 mg sublingual tablet (20 sources) Vitamin B12 Cobalamin Combinations (B-12) 100-5000 MCG sublingual tablet B12 Active End: 08-20-2023 cyanocobalamin/folic acid (v itamin B79-jakhp acid) 1,000-400 mcg lozenge B12 08/20/2023 Discontinued [...] mg/kg into a venous catheter Active End: 05-06-2024 inFLIXimab (REMICADE) 10 mg/ mL injection Infuse 5 mg/kg into a venous catheter See Admin Instructions. Every 6 weeks 05/06/2024 Discontinued End: 05-06-2024 inFLIXimab-dyyb (INFLECTRA) 100 mg injection Indications: Crohn's disease Infuse 5 mg/kg into a venous catheter once Indications: Crohn's disease. Every 6 weeks 05/06/2024 Discontinued End: 05-06-2024 inFLIXimab-axxq (AVSOLA) 100 mg injection Infuse 5 mg/kg into a venous catheter every 6 (six) weeks. 05/06/2024 Discontinued End: 08-20-2023 inFLIXimab-dyyb (INFLECTRA) 100 mg injection Indications: Crohn's disease Infuse 5 mg/kg into a venous catheter See Admin Instructions Indications: Crohn's disease. Every 8 weeks 08/20/2023 Discontinued labetalol hydrochloride 100 mg oral tablet (1 [...] polysaccharide iron complex 391 mg oral capsule (2 sources) Start: 05-03-2024 End: 06-02-2024 take 1 capsule by mouth once daily iron polysaccharides (ProFe) 391.3 (180 Fe) MG capsule Indications: Anemia during in second trimester Take 1 capsule (391.3 mg) by mouth Daily 30 capsule 6 05/03/2024 06/02/2024 Active Start: 05-03-2024 End: 06-02-2024 polysaccharide iron complex 180 mg iron capsule Take 391.3 mg by mouth in the morning. 05/03/2024 06/02/2024 Active vit no.124/iron/fol ic ( VITAMIN ORAL) (11 sources) take 1 [...] % 100 mL IVPB inFLIXimab-axxq (AVSOLA) 5 m g/kg = 400 mg in sodium chloride 0.9 [...] Test Name Value Interpretation Reference Range Facility GLUCOSE TOLERANCE 3 HOURon 0 05-08-2024 GLUCOSE TOLERANCE 3 HOUR mg/dL [facility] Comment on above: GLU FAST 90 (<95) Co l: 05/08/24 0806 GLU 1HR 159 (<180) Col: 05/08/24 0913 GLU 2HR 142 (<155) Col: 05/08/24 1013 GLU 3HR 117 (<140) Col: 05/08/24 1113 [facility] Ultrasound - OfficeOrdered B y: Rachelle Arredondo on 05-04-2024 Radiology Study observation (narrative) [facility] Urinalysis macro (dipstick) panel (U)on 04-26-2024 Bilirubin, UA Negative Negative - 4(70) +++ mg/dL [facility] Blood, UA Negative Negative - 50 Enrrique/mcL [facility] Clarity, [facility]A Clear [facility] Color, UA Yellow [facility] Glucose, UA Negative Negative - 1999(110) ++++ mg/dL [facility] Interpretation and review of laboratory results Abnormal [facility] Ketones, UA Positive Negative - 160(16) ++++ mg/dL [facility] Leukocytes, UA Negative Negative - 500+++ Cam/mcL [facility] Nitrite, UA Negative Negative - Positive [facility] pH, UA 6.5 5 - 9 [facility] Protein, UA Negative Negative - 1999(20) ++++ mg/dL [facility] Spec Grav, UA 1.03 1 - 1.03 [facility] Urobilinogen, UA 1.0 0.2 - 12 mg/dL [facility] US OB LIMITED 1+ FETUSESon 0 04-21-2024 [...] II, MD, PHD at 22-Apr-2024 09:07:11 AM [facility] Normal Not Available Comment on above: Order Comment: US OB INCOMPLETE ANATOMY Estimated Date of Delivery: 08/11/24 Gestational Age as of 03/25/2024: 20w1d CBC AND AUTO DIFFon 04-20-19 ABSOLUTE BASOPHIL 0.0 X10E9/L Normal 0.0-0.2 [facility] Comment on above: Performed By: #### 2 276-4, CBCA, FEPR #### [facility] ([id number]) [address] [place] [address] ABSOLUTE NEUTROPHIL 5.2 X10E9/L Normal 1.5-6.6 ProM [facility] Comment on above: Performed By: #### 2 276-4, CBCA, FEPR #### [facility] ([id number]) [address], [address] [place] [address] Basophils/100 WBC (Bld) 0.4 % Normal [facility] Comment on above: Performed By: #### 2 276-4, CBCA, FEPR #### [facility] ([id number]) [address], [address] [place] [address] Eosinophils (Bld) [#/Vol] 0.0 10*3/uL Normal 0.0-0.4 [facility] Comment on above: Performed By: #### 2 276-4, CBCA, FEPR #### [facility] ([id number]) [address], [address] [address] Eosinophils/100 WBC (Bld) 0.6 % Normal [facility] Comment on above: Performed By: #### 2 276-4, CBCA, FEPR #### [facility] ([id number]) [address], [facility] [address] [place] [address] Erythrocyte distribution width (RBC) [Ratio] 14.6 % Normal 11.5-15.0 [facility] Comment on above: Performed By: #### 2 276-4, CBCA, FEPR #### [facility] ([id number]) [address], [address] [place] [address] Hematocrit (Bld) [Volume fraction] 32.4 % Low 35-47 [facility] Comment on above: Performed By: #### 2 276-4, CBCA, FEPR #### [facility] ([id number]) [address], [address] [place] [address] Hemoglobin (Bld) [Mass/Vol] 10.7 g/dL Low 11.7-15.5 [facility] Comment on above: Performed By: #### 2 276-4, CBCA, FEPR #### [facility] ([id number]) [address], [facility] [address] [place] [address] Lymphocytes (Bld) [#/Vol] 1.9 10*3/uL Normal 1.0-3.5 [facility] Comment on above: Performed By: #### 2 276-4, CBCA, FEPR #### [facility] ([id number]) [address], [facility] [address] [place] [address] Lymphocytes/100 WBC (Bld) 24.8 % Normal [facility] Comment on above: Performed By: #### 2 276-4, CBCA, FEPR #### [facility] ([id number]) [address], [address] [address] MCH (RBC) [Entitic mass] 30.9 pg Normal 27-34 [facility] Comment on above: Performed By: #### 2 276-4, CBCA, FEPR #### [facility] ([id number]) [address], [facility] [address] [place] [address] MCHC (RBC) [Mass/Vol] 33.0 g/dL Normal 32-36 [facility] Comment on above: Performed By: #### 2 276-4, CBCA, FEPR #### [facility] ([id number]) [address], [address] [address] MCV (RBC) [Entitic vol] 94 fL Normal 80-100 [facility] Comment on above: Performed By: #### 2 276-4, CBCA, FEPR #### [facility] ([id number]) [address] [address] Monocytes (Bld) [#/Vol] 0.5 10*3/uL Normal 0-0.9 [facility] Comment on above: Performed By: #### 2 276-4, CBCA, FEPR #### [facility] ([id number]) [address], [address] [place] [address] Monocytes/100 WBC (Bld) 6.5 % Normal [facility] Comment on above: Performed By: #### 2 276-4, CBCA, FEPR #### [facility] ([id number]) [address], [facility] [address] [place] [address] Neutrophils/100 WBC (Bld) 67.7 % Normal [facility] Comment on above: Performed By: #### 2 276-4, CBCA, FEPR #### [facility] ([id number]) [address], [facility] [address] [place] [address] Platelet mean volume (Bld) [Entitic vol] 10.8 fL Normal 7-12 [facility] Comment on above: Performed By: #### 2 276-4, CBCA, FEPR #### [facility] ([id number]) [address], [facility] [address] [place] [address] Platelets (Bld) [#/Vol] 162 10*3/uL Normal 150-450 [facility] Comment on above: Performed By: #### 2 276-4, CBCA, FEPR #### [facility] ([id number]) [address], [facility] [address] [place] [address] RBC COUNT 3.46 X10E12/L Low 3.80-5.20 [facility] Comment on above: Performed By: #### 2 276-4, CBCA, FEPR #### [facility] ([id number]) [address], [address] [place] [address] WBC (Bld) [#/Vol] 7.7 10*3/uL Normal 4.0-11.0 [facility] Comment on above: Performed By: #### 2 276-4, CBCA, FEPR #### [facility] ([id number]) [address], [address] [place] [address] FERRITINon 04-19-2024 Ferritin [Mass/Vol] 9 ng/mL Low 11-307 [facility] Comment on above: Performed By: #### 2 276-4, CBCA, FEPR #### [facility] ([id number]) [address], [address] [place] [address] IRON PROFILEon 04-19-2024 Iron [Mass/Vol] 78 ug/dL Normal 50-170 [facility] Comment on above: Performed By: #### 2 276-4, CBCA, FEPR #### [facility] ([id number]) [address], [facility] [address] [place] [address] IRON BINDING 475 ug/dL High 250-425 [facility] Comment on above: Performed By: #### 2 276-4, CBCA, FEPR #### [facility] ([id number]) [address], [address] [place] [address] IRON SATURATION 16 % SATURATION Normal 15-50 [facility] Comment on above: Performed By: #### 2 276-4, CBCA, FEPR #### [facility] ([id number]) [address], [address] [place] [address] THIOPURINE METABOLITESon 6 METHYLMERCAPTOPRNE <475 Normal < or = 5700 [facility] Comment on above: Result Comment: NOTE Result not quantifiable; below the limit of quantitation. Decreased risk of hepatotoxicity. ADDITIONAL INFORMATION Testing performed by Liquid Chromatography-Tandem Mass Spectrometry (LC-MS/MS) This test was developed and its performance characteristics determined by [facility] in a manner consistent with CLIA requirements. This test has not been cleared or approved by the U.S. Food and Drug Administration. Test Performed by: [facility] [address] [place] [id number] Application Development Specialist: Celi Fernandez Ph.D.; CLIA# [id number] Performed By: #### 2 276-4, CBCA, FEPR #### [facility] ([id number]) [address], [address] [place] [address] 6 THIOGUANINE 101 pmol/8x10(8)RBC Low 235 - 450 [facility] Comment on above: Result Comment: NOTE Decreased possibility of response; suboptimal dosing or noncompliance. Performed By: #### 2 276-4, CBCA, FEPR #### [facility] ([id number]) [address], [address] [place] [address] VITAMIN B12on 04-19-2024 Cobalamin (Vitamin B12) [Mass/Vol] 143 pg/mL Low 180-914 [facility] Comment on above: Performed By: #### 2 276-4, CBCA, FEPR #### [facility] ([id number]) [address], [address] [place] [address] Vitamin D+Metabolites [Mass/ Vol]on 04-19-2024 VITAMIN D 25 HYD TOT 12.0 ng/mL Low 30-100 [facility] Comment on above: Result Comment: Vitamin D status 25 [place] Vitamin D Deficiency <20 ng/mL Insufficiency 20-29 ng/mL Sufficiency 30-100 ng/mL Toxicity >100 ng/mL NOTE: A pediatric reference range has not been established by the broodmare barn groom of this kit. The [place] [employer] recommends a Vitamin D level of = or >20ng/mL in infants and children. Performed By: #### 2 276-4, CBCA, FEPR #### [facility] ([id number]) [address], [address] [place] [address] No Panel Informationon 03-24 Radiology Study observation (narrative) [facility] OB ANATOMYon 03-24-2024 [place] [address] Ultrasound Report Signed Patient: JUAN LUIS STOREY MR#: [id number] : 1990 Acct:[id number] Age/Sex: 33 / F ADM Date: 03/24/24 Loc: US Attending Dr: Parish Valdez D.O. Ordering Physician: Parish Valdez D.O. Date of Service: 03/24/24 Procedure(s): US OB anatomy Accession Number(s): [id number] cc: Parish Valdez D.O.; Hilary Aviles NP [place] [id number] Patient Name: JUAN LUIS STOREY MRN: [id number] date: 1990 Sex: F Assigned Patient Location: US Current Patient Location: US Accession/Order Number: [id number] Exam Date: 03/24/2024 10:45 Report Date: 03/24/2024 [...] Signed By: 03/24/24 1139 DD/ 1136 TD/TT: Cross Tie Maker: [facility] Radiology, Radiologaditya duncan MD - 03/24/2024 [place] [address] Ultrasound Report Signed Patient: JUAN LUIS STOREY MR#: [id number] : 1990 Acct:[id number] Age/Sex: 33 / F ADM Date: 03/24/24 Loc: US Attending Dr: Parish Valdez D.O. Ordering Physician: Parish Valdez D.O. Date of Service: 03/24/24 Procedure(s): US OB anatomy Accession Number(s): [id number] cc: Parish Valdez D.O.; Hilary Aviles NP [facility] [place] [address] Patient Name: JUAN LUIS STOREY MRN: [facility]:[id number] date: 1990 Sex: F Assigned Patient Location: US Current Patient Location: US Accession/Order Number: [id number] Exam Date: 03/24/2024 10:45 Report Date: 03/24/2024 [...] Signed By: 03/24/24 1139 DD/ 1136 TD/TT: Cross Tie Maker: [facility] [email or web address] US OB ANATOMYOrdered By: Sergio [email or web address] Radiology on 03-24-2024 [facility] [email or web address] Work Phone: US OB CERVICAL LENGTHon 03-13 [place] [address] Ultrasound Report Signed Patient: JUAN LUIS STOREY MR#: [id number] : 1990 Acct:[id number] Age/Sex: 33 / F ADM Date: 03/24/24 Loc: US Attending Dr: Parish Valdez D.O. Ordering Physician: Parish Valdez D.O. Date of Service: 03/24/24 Procedure(s): US OB cervical length Accession Number(s): [id number] cc: Parish Valdez D.O.; Hilary Aviles NP [place] [id number] Patient Name: JUAN LUIS STOREY MRN: [id number] date: 1990 Sex: F Assigned Patient Location: US Current Patient Location: US Accession/Order Number: [id number] Exam Date: 03/24/2024 10:45 Report Date: 03/24/2024 [...] Signed By: 03/24/24 1138 DD/ 1136 TD/TT: Cross Tie Maker: [facility] Radiology, Radiologaditya duncan MD - 03/24/2024 [place] [address] Ultrasound Report Signed Patient: JUAN LUIS STOREY MR#: [id number] : 1990 Acct:[id number] Age/Sex: 33 / F ADM Date: 03/24/24 Loc: US Attending Dr: Parish Valdez D.O. Ordering Physician: Parish Valdez D.O. Date of Service: 03/24/24 Procedure(s): US OB cervical length Accession Number(s): [id number] cc: Parish Valdez D.O.; Hilary Aviles NP [facility] [place] [address] Patient Name: JUAN LUIS STOREY MRN: [facility]:[id number] date: 1990 Sex: F Assigned Patient Location: US Current Patient Location: US Accession/Order Number: [id number] Exam Date: 03/24/2024 10:45 Report Date: 03/24/2024 [...] Signed By: 03/24/24 1138 DD/ 1136 TD/TT: Cross Tie Maker: [facility] US OB CERVICAL LENGTHOrdered By: Radiologist Radiology on 03-24-2024 [facility] Work Phone: Ultrasound - OfficeOrdered B y: Rachelle Arredondo on 03-24-2024 [facility] Unlisted Lab Teston 03-24-19 [facility] RECURRENT VAGINITIS (HTRX)on 03-18-2024 ATOPOBIUM VAGINAE 0 [facility] ATOPOBIUM VAGINAE Not detected [facility] BVAB 2,3 (BACTERIAL VAGINOSIS ASSOCIATED BACTERIA 2, 3); MOBILUNCUS SPP 0 [facility] BVAB 2,3 (BACTERIAL VAGINOSIS ASSOCIATED BACTERIA 2, 3); MOBILUNCUS SPP Not detected [facility] WARD ALBICANS, PARAPSILOSIS, TROPICALIS 0 [facility] WARD ALBICANS, PARAPSILOSIS, TROPICALIS Not detected [facility] WARD GLABRATA 0 [facility] WARD GLABRATA Not detected [facility] WARD KRUSEI 0 [facility] WARD KRUSEI Not detected [facility] CHLAMYDIA TRACHOMATIS 0 [facility] CHLAMYDIA [...] [facility] OB CERVICAL LENGTHon 02-12 [place] [address] Ultrasound Report Signed Patient: JUAN LUIS STOREY MR#: [id number] : 1990 Acct:[id number] Age/Sex: 33 / F ADM Date: 03/11/24 Loc: US Attending Dr: Parish Valdez D.O. Ordering Physician: Parish Valdez D.O. Date of Service: 03/11/24 Procedure(s): US OB cervical length Accession Number(s): [id number] cc: Parish Valdez D.O.; Hilary Aviles NP [place] [address] Patient Name: JUAN LUIS STOREY MRN: [id number] date: 1990 Sex: F Assigned Patient Location: Current Patient Location: Accession/Order Number: [id number] Exam Date: 03/11/2024 10:15 Report Date: 03/11/2024 [...] Signed By: 03/11/24 1056 DD/ 1053 TD/TT: Cross Tie Maker: [facility] Radiology, Radiologaditya duncan MD - 03/11/2024 [place] [address] Ultrasound Report Signed Patient: JUAN LUIS STOREY MR#: [id number] : 1990 Acct:[id number] Age/Sex: 33 / F ADM Date: 03/11/24 Loc: US Attending Dr: Parish Valdez D.O. Ordering Physician: Parish Valdez D.O. Date of Service: 03/11/24 Procedure(s): US OB cervical length Accession Number(s): [id number] cc: Parish Valdez D.O.; Hilary Aviles NP [facility] [place] [address] Patient Name: JUAN LUIS STOREY MRN: [facility]:[id number] date: 1990 Sex: F Assigned Patient Location: US Current Patient Location: Accession/Order Number: [id number] Exam Date: 03/11/2024 10:15 Report Date: 03/11/2024 [...] Signed By: 03/11/24 1056 DD/ 1053 TD/TT: Cross Tie Maker: [facility] Radiology Study observation (narrative) [facility] US OB CERVICAL LENGTHOrdered By: Radiologist Radiology on 03-11-2024 [facility] Work Phone: Urinalysis macro (dipstick) panel (U)on 02-18-2024 Bilirubin, UA Negative Negative - 4(70) +++ mg/dL [facility] Blood, UA Positive Negative - 50 Enrrique/mcL [facility] Comment on above: trace Clarity, UA Clear [facility] Color, UA Yellow [facility] Glucose, UA Negative Negative - 2000(110) ++++ mg/dL [facility] Interpretation and review of laboratory results Abnormal [facility] Ketones, UA Positive Negative - 160(16) ++++ mg/dL [facility] Comment on above: trace Leukocytes, UA Trace Negative - 500+++ Cam/mcL [facility] Nitrite, UA Negative Negative - Positive [facility] pH, UA 7 5 - 9 [facility] Protein, UA Positive Negative - 2000(20) ++++ mg/dL [facility] Comment on above: 30 Spec Grav, UA 1.03 1 - 1.03 [facility] Urobilinogen, UA 1.0 0.2 - 12 mg/dL [facility] ALL CBC WITH AUTO DIFFon BASOPHILS ABSOLUTE AUTO 0 [facility] Basophils/100 WBC (Bld) 0.2 % 0.2 - 2.0 % [facility] Eosinophils/100 WBC (Bld) 0.9 % 0.9 - 7.0 % [facility] Erythrocyte distribution width (RBC) [Ratio] 12.5 % 11.0 - 15.0 % [facility] Hematocrit (Bld) [Volume fraction] 35.3 % Low 36.0 - 48.0 % [facility] Hemoglobin (Bld) [Mass/Vol] 11.8 g/dL Low 12.0 - 16.0 g/dL [facility] IMMATURE GRANULOCYTES ABS AUTO 0.03 [facility] Immature granulocytes/100 WBC (Bld) 0.4 % 0.0 - 0.5 % [facility] Interpretation and review of laboratory results Abnormal [facility] LYMPHOCYTES ABSOLUTE AUTO 2.4 [facility] Lymphocytes/100 WBC (Bld) 29.2 % 20.5 - 60.0 % [facility] MCH (RBC) [Entitic mass] 32 pg 26.7 - 34.0 pg [facility] MCHC (RBC) [Mass/Vol] 33.4 g/dL 29.9 - 35.2 g/dL [facility] MCV (RBC) [Entitic vol] 95.7 fL 81.0 - 99.0 fL [facility] MONOCYTES ABSOLUTE AUTO 0.5 [facility] Monocytes/100 WBC (Bld) 6.5 % 1.7 - 12.0 % [facility] NEUTROPHILS ABSOLUTE AUTO 5.1 [facility] Neutrophils/100 WBC (Bld) 62.8 % 43.0 - 75.0 % [facility] Platelet mean volume (Bld) [Entitic vol] 12 fL 9.5 - 13.5 fL [facility] TBH EO # 0.1 [facility]H PLT 194 [facility] TB RBC 3.69 Low [facility] TB WBC 8.2 [facility] No Panel Informationon 02-13 [facility] Rubella IGG immune statuson 02-14-2024 Rubella immune IgG immune [facility] Syphilis Total(Unknown Syphi lis Status)Ordered By: Rachelle Arredondo on 02-14-2024 Syphilis Non-Reactive [facility] BASIC METABOLIC PANLon 01-25 Anion gap [Moles/Vol] 9 mmol/L Normal 5-15 [facility] Comment on above: Performed By: #### C BREANNA, 2131-10, L[place], BMP, [address]-4, 1987-06, 96126-6 #### [facility] ([id number]) [address] [place] [address], [address] [address] [place] [address] #### THMET #### [facility] ([id number]) [address] [place] [address], Calcium [Mass/Vol] 8.6 mg/dL Normal 8.5-10.5 [facility] Comment on above: Performed By: #### C BREANNA, 2131-10, LIVR, BMP, 24322-3, 1987-06, 80334-6 #### [facility] ([id number]) [address] [place] [address], [address] [place] [address] #### THMET #### [facility] ([id number]) [address] [place] [address], Chloride [Moles/Vol] 104 mmol/L Normal 98-109 [facility] Comment on above: Performed By: #### C BREANNA, 2131-10, LIVR, BMP, 10492-1, 1987-06, 31799-9 #### [facility] ([id number]) [address] [place] [address], [address] [place] [address] #### THMET #### [facility] ([id number]) [address] [place] [address], CO2 [Moles/Vol] 21 mmol/L Low 22-32 [facility] Comment on above: Performed By: #### Elizabeth CARLOS, 2131-10, LIVR, BMP, 30746-0, 1987-06, 84155-8 #### [facility] ([id number]) [address] [place] [address], [address] [place] [address] #### THMET #### [facility] ([id number]) [address] [place] [address], Creatinine [Mass/Vol] 0.56 mg/dL Normal 0.40-1.00 [facility] Comment on above: Result Comment: METH OD TRACEABLE TO IDMS STANDARD Performed By: #### C BREANNA, 2131-10, LIVR, BMP, 86851-0, 1987-06, 49956-3 #### [facility] ([id number]) [address] [place] [address], [address] [place] [address] #### THMET #### [facility] ([id number]) [address] [place] [address], eGFR (CKD-EPI) NON-RACE DEPENDENT >90 Normal >59 [facility] Comment on above: Result Comment: Reported eGFR is based on the CKD-EPI 2020 equation that does not use a race coefficient. Performed By: #### C BC, 2131-10, LIVR, BMP, 64593-0, 1987-06, 28606-7 #### [facility] ([id number]) [address] [facility], [address] [place] [address] #### THMET #### [facility] ([id number]) [address] [facility], Glucose [Mass/Vol] 73 mg/dL Normal 65-99 [facility] Comment on above: Performed By: #### C BC, 2131-10, LIVR, BMP, 96645-5, 1987-06, 31255-6 #### [facility] ([id number]) [address] [facility], [address] [place] [address] #### THMET #### [facility] ([id number]) [address] [place] [address], Potassium [Moles/Vol] 3.8 mmol/L Normal 3.5-5.0 [facility] Comment on above: Performed By: #### C BC, 2131-10, LIVR, BMP, 83123-2, 1987-06, 81501-3 #### [facility] ([id number]) [address] [facility], [address] [place] [address] #### THMET #### [facility] ([id number]) [address] [place] [address], Sodium [Moles/Vol] 134 mmol/L Normal 134-146 [facility] Comment on above: Performed By: #### C BC, 2131-10, LIVR, BMP, 57984-8, 1987-06, 87074-4 #### [facility] ([id number]) [address] [facility], [address] [place] [address] #### THMET #### [facility] ([id number]) [address] [facility], Urea nitrogen [Mass/Vol] 6 mg/dL Normal 5-23 [facility] Comment on above: Performed By: #### C BREANNA, 2131-10, LIVR, BMP, 75222-9, 1987-06, 41807-2 #### [facility] ([id number]) [address] [place] [address], [facility] [address] [place] [address] #### THMET #### [facility] ([id number]) [address] [facility], COMPLETE BLOOD COUNTon 01-25 Erythrocyte distribution width (RBC) [Ratio] 13.7 % Normal 11.5-15.0 [facility] Comment on above: Performed By: #### C BREANNA, 2131-10, LIVR, BMP, 62635-8, 1987-06, 22652-8 #### [facility] ([id number]) [address] [place] [address] #### THMET #### [facility] ([id number]) [address] [place] [address], Hematocrit (Bld) [Volume fraction] 38.5 % Normal 35-47 [facility] Comment on above: Performed By: #### C BREANNA, 2131-10, LIVR, BMP, 56424-4, 1987-06, 22456-1 #### [facility] ([id number]) [address] [place] [address], [facility] [address] [place] [address] #### THMET #### [facility] ([id number]) [address] [place] [address], Hemoglobin (Bld) [Mass/Vol] 12.8 g/dL Normal 11.7-15.5 [facility] Comment on above: Performed By: #### C BREANNA, 2131-10, LIVR, BMP, 67825-0, 1987-06, 43754-2 #### [facility] ([id number]) [address] [place] [address], [facility] [address] [place] [address] #### THMET #### [facility] ([id number]) [address] [facility], MCH (RBC) [Entitic mass] 32.5 pg Normal 27-34 [facility] Comment on above: Performed By: #### Elizabeth CARLOS, 2131-10, LIVR, BMP, 90104-4, 1987-06, 65391-1 #### [facility] ([id number]) [address] [place] [address], [address] [place] [address] #### THMET #### [facility] ([id number]) [address] [facility], MCHC (RBC) [Mass/Vol] 33.3 g/dL Normal 32-36 [facility] Comment on above: Performed By: #### C BREANNA, 2131-10, LIVR, BMP, 13695-6, 1987-06, 41068-7 #### [facility] ([id number]) [address] [place] [address], [address] [place] [address] #### THMET #### [facility] ([id number]) [address] [place] [address], MCV (RBC) [Entitic vol] 98 fL Normal 80-100 [facility] Comment on above: Performed By: #### Elizabeth CARLOS, 2131-10, LIVR, BMP, , 1987-06, 54960-3 #### [facility] ([id number]) [address] [place] [address], [address] [place] [address] #### THMET #### [facility] ([id number]) [address] [place] [address], Platelet mean volume (Bld) [Entitic vol] 11.2 fL Normal 7-12 [facility] Comment on above: Performed By: #### Elizabeth CARLOS, 2131-10, LIVR, BMP, 95395-5, 1987-06, 56548-5 #### [facility] ([id number]) [address] [place] [address], [address] [place] [address] #### THMET #### [facility] ([id number]) [address] [place] [address], Platelets (Bld) [#/Vol] 108 10*3/uL Low 150-450 [facility] Comment on above: Performed By: #### Elizabeth CARLOS, 2131-10, LIVR, BMP, 24933-1, 1987-06, 35002-8 #### [facility] ([id number]) [address] [place] [address], [place] [address] #### THMET #### [facility] ([id number]) [address] [place] [address], RBC COUNT 3.95 X10E12/L Normal 3.80-5.20 [facility] Comment on above: Performed By: #### Elizabeth CARLOS, 2131-10, LIVR, BMP, 55286-4, 1987-06, 22414-2 #### [facility] ([id number]) [address] [place] [address], [place] [address] #### THMET #### [facility] ([id number]) [address] [place] [address], WBC (Bld) [#/Vol] 7.2 10*3/uL Normal 4.0-11.0 [facility] Comment on above: Performed By: #### Elizabeth CARLOS, 2131-10, LIVR, BMP, 64795-4, 1987-06, 34274-7 #### [facility] ([id number]) [address] [place] [address] #### THMET #### [facility] ([id number]) [address] [place] [address], CRP [Mass/Vol]on 01-26-2024 C REACTIVE PROTEIN 0.7 mg/dL Normal 0.000-0.744 [facility] Comment on above: Performed By: #### C BC, 2131-10, LIVR, BMP, 33004-9, 1987-06, 87028-4 #### [facility] ([id number]) [address], [address] [place] [address] #### THMET #### [facility] ([id number]) [facility], ESR Photometric method (Bld) [Velocity]on 01-26-2024 ESR, ERYTHROCYTE SEDIMENTATION RATE 1 mm/h Normal 0-20 [facility] Comment on above: Performed By: #### C BREANNA, 2131-10, LIVR, BMP, , 1987-06, 00979-9 #### [facility] ([id number]) [address], [address] [place] [address] #### THMET #### [facility] ([id number]) [address] [place] [address], LIVER PANELon 01-26-2024 Albumin [Mass/Vol] 3.7 g/dL Normal 3.2-5.3 [facility] Comment on above: Performed By: #### C BREANNA, 2131-10, LIVR, BMP, , 1987-06, 85229-3 #### [facility] ([id number]) [address] [facility], [address] [place] [address] #### THMET #### [facility] ([id number]) [address] [place] [address], ALP [Catalytic activity/Vol] 29 U/L Low 39-130 [facility] Comment on above: Performed By: #### C BREANNA, 2131-10, LIVR, BMP, 92970-3, 1987-06, 97595-4 #### [facility] ([id number]) [address] [facility] [facility], [address] [place] [address] #### THMET #### [facility] ([id number]) [address] [facility], ALT [Catalytic activity/Vol] 8 U/L Normal 0-31 [facility] Comment on above: Performed By: #### C BREANNA, 2131-10, LIVR, BMP, 88370-4, 1987-06, 78761-8 #### [facility] ([id number]) [address] [place] [address], [address] [place] [address] #### THMET #### [facility] ([id number]) [address] [place] [address], AST [Catalytic activity/Vol] 19 U/L Normal 0-41 [facility] Comment on above: Performed By: #### C BREANNA, 2131-10, LIVR, BMP, 17771-4, 1987-06, 31824-4 #### [facility] ([id number]) [address] [place] [address], [address] [place] [address] #### THMET #### [facility] ([id number]) [address] [place] [address], Bilirubin [Mass/Vol] 0.4 mg/dL Normal 0.3-1.2 [facility] Comment on above: Performed By: #### C BREANNA, 2131-10, LIVR, BMP, 12010-2, 1987-06, 84956-0 #### [facility] ([id number]) [address] [place] [address], [address] [place] [address] #### THMET #### [facility] ([id number]) [address] [place] [address], Bilirubin.direct [Mass/Vol] 0.1 mg/dL Normal 0.0-0.4 [facility] Comment on above: Performed By: #### Elizabeth CARLOS, 2131-10, LIVR, BMP, 87239-8, 1987-06, 59258-6 #### [facility] ([id number]) [address] [place] [address], [address] [place] [address] #### THMET #### [facility] ([id number]) [address] [facility], Protein [Mass/Vol] 7.0 g/dL Normal 6.0-8.0 [facility] Comment on above: Performed By: #### C BC, 2131-10, LIVR, BMP, 01557-5, 1987-06, 53697-6 #### [facility] ([id number]) [address] [place] [address], [address] [place] [address] #### THMET #### [facility] ([id number]) [address] [place] [address], THIOPURINE METABOLITESon 6 THIOGUANINE Not performed Normal [facility] Comment on above: Result Comment: NOTE Thiopurine Metabolites, B was cancelled on 02/02/2024 at 16:27; Quantity not sufficient to test. Test Performed by: [facility][Note 3] [address] [place] [address] Application Development Specialist: Celi Fernandez Ph.D.; CLIA# [id number] Performed By: #### 2 276-4, CBCA, FEPR #### [facility] ([id number]) [address] [place] [address], [address] [place] [address] VITAMIN B12on 01-26-2024 Cobalamin (Vitamin B12) [Mass/Vol] 239 pg/mL Normal 180-914 [facility] Comment on above: Performed By: #### C , 2131-10, LIVR, BMP, 16482-8, 1987-06, 72301-8 #### [facility] ([id number]) [address] [place] [address], [address] [place] [address] #### THMET #### [facility] ([id number]) [address] [place] [address], Vitamin D+Metabolites [Mass/ Vol]on 01-26-2024 VITAMIN D 25 HYD TOT 10.1 ng/mL Low 30-100 [facility] Comment on above: Result Comment: Vitamin D status 25 [place] Vitamin D Deficiency <20 ng/mL Insufficiency 20-29 ng/mL Sufficiency 30-100 ng/mL Toxicity >100 ng/mL NOTE: A pediatric reference range has not been established by the broodmare barn groom of this kit. The [place] [employer] recommends a Vitamin D level of = or >20ng/mL in infants and children. Performed By: #### 2 276-4, CBCA, FEPR #### [facility] ([id number]) [address] [place] [address], [address] [place] [address] HCG ( test) Ql (U)o n 01-23-2024 Interpretation and review of laboratory results Abnormal [facility] Preg Test, Ur Positive Negative [facility] Urinalysis macro (dipstick) panel (U)on 01-23-2024 Bilirubin, UA Negative Negative - 4(70) +++ mg/dL [facility] Blood, UA Positive Negative - 50 Enrrique/mcL [facility] Clarity, UA Clear [facility] Color, UA Yellow [facility] Glucose, UA Negative Negative - 1999(110) ++++ mg/dL [facility] Interpretation and review of laboratory results Abnormal [facility] Ketones, UA Positive Negative - 160(16) ++++ mg/dL [facility] Leukocytes, UA Negative Negative - 500+++ Cam/mcL [facility] Nitrite, UA Negative Negative - Positive [facility] pH, UA 7 5 - 9 [facility] Protein, UA Trace Negative - 2000(20) ++++ mg/dL [facility] Spec Grav, UA 1.015 1 - 1.03 [facility] Urobilinogen, UA 1.0 0.2 - 12 mg/dL [facility] KAY FECAL OCCULT BLDon 01-02 Hemoglobin.gastrointe stinal Ql (Stl) Negative Normal NEG [facility] Comment on above: Performed By: #### 2 335-8 #### [facility] ([id number]) [address] [place] [address], [place] [address] CBC AND AUTO DIFFon 11-30- 24 ABSOLUTE BASOPHIL 0.0 X10E9/L Normal 0.0-0.2 [facility] Comment on above: Performed By: #### Elizabeth ARROYO, FEPR, 2275-4 #### [facility] ([id number]) [address] [address] [place] [address] ABSOLUTE NEUTROPHIL 1.9 X10E9/L Normal 1.5-6.6 [facility] Comment on above: Performed By: #### Elizabeth ARROYO, FEPR, 2275- #### [facility] ([id number]) [address] [address] [place] [address] Basophils/100 WBC (Bld) 0.5 % Normal [facility] Comment on above: Performed By: #### Elizabeth ARROYO, FEPR, 2275-4 #### [facility] ([id number]) [address], [facility] [address] [place] [address] Eosinophils (Bld) [#/Vol] 0.1 10*3/uL Normal 0.0-0.4 [facility] Comment on above: Performed By: #### Elizabeth ARROYO, FEPR, 2275-05 #### [facility] ([id number]) [address] [address] Eosinophils/100 WBC (Bld) 2.3 % Normal [facility] Comment on above: Performed By: #### Elizabeth ARROYO, FEPR, 2275- #### [facility] ([id number]) [address] [address] [place] [address] Erythrocyte distribution width (RBC) [Ratio] 13.3 % Normal 11.5-15.0 [facility] Comment on above: Performed By: #### Elizabeth ARROYO, FEPR, 2275-4 #### [facility] ([id number]) [address], [facility] [address] [place] [address] Hematocrit (Bld) [Volume fraction] 36.2 % Normal 35-47 [facility] Comment on above: Performed By: #### EDWIN Johnson BCA, 6-4 #### [facility] ([id number]) [address], [address] [place] [address] Hemoglobin (Bld) [Mass/Vol] 12.8 g/dL Normal 11.7-15.5 [facility] Comment on above: Performed By: #### Elizabeth ARROYO FEPR, 2275-4 #### [facility] ([id number]) [address] [address] [place] [address] Lymphocytes (Bld) [#/Vol] 2.3 10*3/uL Normal 1.0-3.5 [facility] Comment on above: Performed By: #### Elizabeth ARROYO FEPR, 2275-4 #### [facility] ([id number]) [address], [facility] [address] [place] [address] Lymphocytes/100 WBC (Bld) 47.4 % Normal [facility] Comment on above: Performed By: #### Elizabeth ARROYO FEPR, 4 #### [facility] ([id number]) [address], [address] [place] [address] MCH (RBC) [Entitic mass] 33.2 pg Normal 27-34 [facility] Comment on above: Performed By: #### Elizabeth ARROYO FEPR, 2275-4 #### [facility] ([id number]) [address], [address] [place] [address] MCHC (RBC) [Mass/Vol] 35.5 g/dL Normal 32-36 [facility] Comment on above: Performed By: #### Elizabeth ARROYO, FEPR, 2275-4 #### [facility] ([id number]) [address], [address] [place] [address] MCV (RBC) [Entitic vol] 94 fL Normal 80-100 [facility] Comment on above: Performed By: #### Elizabeth ARROYO, FEPR, 6-4 #### [facility] ([id number]) [address], [address] [place] [address] Monocytes (Bld) [#/Vol] 0.4 10*3/uL Normal 0-0.9 [facility] Comment on above: Performed By: #### Elizabeth ARROYO, FEPR, 2275-4 #### [facility] ([id number]) [address], [address] [place] [address] Monocytes/100 WBC (Bld) 9.1 % Normal [facility] Comment on above: Performed By: #### Elizabeth ARROYO, FEPR, 4 #### [facility] ([id number]) [address], [address] [place] [address] Neutrophils/100 WBC (Bld) 40.7 % Normal [facility] Comment on above: Performed By: #### Elizabeth ARROYO, FEPR, 2275- #### [facility] ([id number]) [address], [address] [place] [address] Platelet mean volume (Bld) [Entitic vol] 11.1 fL Normal 7-12 [facility] Comment on above: Performed By: #### Elizabeth ARROYO, FEPR, 2275- #### [facility] ([id number]) [address], [address] [place] [address] Platelets (Bld) [#/Vol] 187 10*3/uL Normal 150-450 [facility] Comment on above: Performed By: #### Elizabeth BCA, FEPR, 2275-4 #### [facility] ([id number]) [address], [address] [place] [address] RBC COUNT 3.87 X10E12/L Normal 3.80-5.20 [facility] Comment on above: Performed By: #### Elizabeth ARROYO, FEPR, 6-4 #### [facility] ([id number]) [address] [address] WBC (Bld) [#/Vol] 4.8 10*3/uL Normal 4.0-11.0 [facility] Comment on above: Performed By: #### C BCA, FEPR, 2275-4 #### [facility] ([id number]) [address] [address] FERRITINon 12-01-2023 Ferritin [Mass/Vol] 12 ng/mL Normal 11-307 [facility] Comment on above: Performed By: #### C BCA, FEPR, 2275-4 #### [facility] ([id number]) [address] [address] IRON PROFILEon 12-01-2023 Iron [Mass/Vol] 74 ug/dL Normal 50-170 [facility] Comment on above: Performed By: #### C BCA, FEPR, 2275-4 #### [facility] ([id number]) [address] [address] IRON BINDING 344 ug/dL Normal 250-425 [facility] Comment on above: Performed By: #### C BCA, FEPR, 6-4 #### [facility] ([id number]) [address] [address] IRON SATURATION 21 % SATURATION Normal 15-50 [facility] Comment on above: Performed By: #### C BCA, FEPR, 6-4 #### [facility] ([id number]) [address] [address] CBC AND AUTO DIFFon 24-20 24 ABSOLUTE BASOPHIL 0.0 X10E9/L Normal 0.0-0.2 [facility] Comment on above: Performed By: #### 2 276-4, CBCA, FEPR #### [facility] ([id number]) [address], [address] [place] [address] ABSOLUTE NEUTROPHIL 2.7 X10E9/L Normal 1.5-6.6 [facility] Comment on above: Performed By: #### 2 276-4, CBCA, FEPR #### [facility] ([id number]) [address], [address] [place] [address] Basophils/100 WBC (Bld) 0.4 % Normal [facility] Comment on above: Performed By: #### 2 276-4, CBCA, FEPR #### [facility] ([id number]) [address], [address] [place] [address] Eosinophils (Bld) [#/Vol] 0.1 10*3/uL Normal 0.0-0.4 [facility] Comment on above: Performed By: #### 2 276-4, CBCA, FEPR #### [facility] ([id number]) [address], [address] [place] [address] Eosinophils/100 WBC (Bld) 2.0 % Normal [facility] Comment on above: Performed By: #### 2 276-4, CBCA, FEPR #### [facility] ([id number]) [address], [address] [place] [address] Erythrocyte distribution width (RBC) [Ratio] 13.5 % Normal 11.5-15.0 [facility] Comment on above: Performed By: #### 2 276-4, CBCA, FEPR #### [facility] ([id number]) [address], [address] [place] [address] Hematocrit (Bld) [Volume fraction] 35.2 % Normal 35-47 [facility] Comment on above: Performed By: #### 2 276-4, CBCA, FEPR #### [facility] ([id number]) [address] [address] [place] [address] Hemoglobin (Bld) [Mass/Vol] 12.2 g/dL Normal 11.7-15.5 [facility] Comment on above: Performed By: #### 2 276-4, CBCA, FEPR #### [facility] ([id number]) [address] [address] Lymphocytes (Bld) [#/Vol] 1.9 10*3/uL Normal 1.0-3.5 [facility] Comment on above: Performed By: #### 2 276-4, CBCA, FEPR #### [facility] ([id number]) [address] [address] Lymphocytes/100 WBC (Bld) 36.8 % Normal [facility] Comment on above: Performed By: #### 2 276-4, CBCA, FEPR #### [facility] ([id number]) [address], [address] [address] MCH (RBC) [Entitic mass] 31.9 pg Normal 27-34 [facility] Comment on above: Performed By: #### 2 276-4, CBCA, FEPR #### [facility] ([id number]) [address] [address] MCHC (RBC) [Mass/Vol] 34.5 g/dL Normal 32-36 [facility] Comment on above: Performed By: #### 2 276-4, CBCA, FEPR #### [facility] ([id number]) [address] [address] MCV (RBC) [Entitic vol] 93 fL Normal 80-100 [facility] Comment on above: Performed By: #### 2 276-4, CBCA, FEPR #### [facility] ([id number]) [address], [address] [place] [address] Monocytes (Bld) [#/Vol] 0.4 10*3/uL Normal 0-0.9 [facility] Comment on above: Performed By: #### 2 276-4, CBCA, FEPR #### [facility] ([id number]) [address], [address] [place] [address] Monocytes/100 WBC (Bld) 8.3 % Normal [facility] Comment on above: Performed By: #### 2 276-4, CBCA, FEPR #### [facility] ([id number]) [address], [address] [place] [address] Neutrophils/100 WBC (Bld) 52.5 % Normal [facility] Comment on above: Performed By: #### 2 276-4, CBCA, FEPR #### [facility] ([id number]) [address], [address] [place] [address] Platelet mean volume (Bld) [Entitic vol] 10.7 fL Normal 7-12 [facility] Comment on above: Performed By: #### 2 276-4, CBCA, FEPR #### [facility] ([id number]) [address], [address] [place] [address] Platelets (Bld) [#/Vol] 198 10*3/uL Normal 150-450 [facility] Comment on above: Performed By: #### 2 276-4, CBCA, FEPR #### [facility] ([id number]) [address], [address] [place] [address] RBC COUNT 3.81 X10E12/L Normal 3.80-5.20 [facility] Comment on above: Performed By: #### 2 276-4, CBCA, FEPR #### [facility] ([id number]) [address], [address] [place] [address] WBC (Bld) [#/Vol] 5.2 10*3/uL Normal 4.0-11.0 [facility] Comment on above: Performed By: #### 2 276-4, CBCA, FEPR #### [facility] ([id number]) [address], [address] [place] [address] FERRITINon 08-04-2023 Ferritin [Mass/Vol] 27 ng/mL Normal 11-307 [facility] Comment on above: Performed By: #### 2 276-4, CBCA, FEPR #### [facility] ([id number]) [address], [address] [place] [address] IRON PROFILEon 08-04-2023 Iron [Mass/Vol] 46 ug/dL Low 50-170 [facility] Comment on above: Performed By: #### 2 276-4, CBCA, FEPR #### [facility] ([id number]) [address], [address] [place] [address] IRON BINDING 273 ug/dL Normal 250-425 [facility] Comment on above: Performed By: #### 2 276-4, CBCA, FEPR #### [facility] ([id number]) [address], [address] [place] [address] IRON SATURATION 17 % SATURATION Normal 15-50 [facility] Comment on above: Performed By: #### 2 276-4, CBCA, FEPR #### [facility] ([id number]) [address], [address] [place] [address] M. tuberculosis stim IFN-g p carrillo (Bld)on 08-04-2023 Mitogen minus Nil Result 9.92 IU/mL Normal [facility] Comment on above: Performed By: #### 7 1775-1 #### [facility] ([id number]) [address] [facility], Nil Result 0.08 IU/mL Normal [facility] Comment on above: Result Comment: NOTE Test Performed by: [facility][Note 3] [address] [place] [address] Application Development Specialist: Celi Fernandez Ph.D.; CLIA# [id number] Performed By: #### 7 1775-1 #### [employer] ([id number]) [address] [facility], QuantiFERON-Tb Gold Plus Result Negative Normal Negative [facility] Comment on above: Result Comment: NOTE No [...] IU/mL. Performed By: #### 7 1775-1 #### [facility] ([id number]) [address] [facility], TB1 Ag minus Nil Result 0.09 IU/mL Normal [facility] Comment on above: Performed By: #### 7 1775-1 #### [facility] [employer] [facility] ([id number]) [facility], TB2 Ag minus Nil Result 0.01 IU/mL Normal [facility] Comment on above: Performed By: #### 7 1775-1 #### [facility] ([id number]) [address] [facility], PAP ACOG PANEL 2: 30 to 65on 05-07-2022 . . Normal [facility] Comment on above: Result Comment: Perf ormed at: WB Performed By: #### 4 [id number] #### [facility] [address] [address] [address] Bisi Glass Age Gdln ACOG Testing 30-65 [facility] Comment on above: Performed By: #### 4 [id number] #### [facility] [address] [address] [address] Bisi Glass DIAGNOSIS: Comment Normal [facility] Comment on above: Result Comment: NEGA TIVE FOR INTRAEPITHELIAL LESION OR MALIGNANCY. Performed at: WB Performed By: #### 4 [id number] #### [facility] [address] [place] [address] Dr. Bisi Glass HPV Aptima Negative Normal Negative [facility] Comment on above: Result Comment: This nucleic acid amplification test detects fourteen high-risk HPV types (16,18,31,33,35,39,45,51,52,56,58,59,66,68) without differentiation. Performed at: =G Performed By: #### 4 [id number] #### [facility] [address] [place] [address] Dr. Bisi Glass HPV Genotype Reflex Comment Normal [facility] Comment on above: Result Comment: Crit eria not met, HPV Genotype not performed. Performed at: WB Performed By: #### 4 [id number] #### [facility] [address] [place] [address] Dr. Bisi Glass Methodology: Comment Normal [facility] Comment on above: Result Comment: This liquid based ThinPrep(R) pap test was screened with the use of an image guided system. Performed at: WB Performed By: #### 4 [id number] #### [facility] [address] [place] [address] Dr. Bisi Glass Note: Comment Normal [facility] Comment on above: Result Comment: The Pap smear is a screening test designed to aid in the detection of premalignant and malignant conditions of the uterine cervix. It is not a diagnostic procedure and should not be used as the sole means of detecting cervical cancer. Both false-positive and false-negative reports do occur. . Performed at: WB Performed By: #### 4 [id number] #### [facility] [address] [place] [address] Dr. Bisi Glass Performed by: Comment Normal [facility] Comment on above: Result Comment: Ngozi Hamlin, Vacuum Forming Machine Operator (ASCP) Performed at: WB Performed By: #### 4 [id number] #### [facility] [address] [place], [place] [address] Dr. Bisi Glass Specimen adequacy: Comment Normal [facility] Comment on above: Result Comment: Sati sfactory for evaluation. Endocervical and/or squamous metaplastic cells (endocervical component) are present. Performed at: WB Performed By: #### 4 [id number] #### [facility] [address] [place], [place] [address] Dr. Bisi Glass CNCOon 02-11-2017 CNCO Letter [facility] [place] [address]Lqniw: [phone]: [facility] [place], [place] [address]Pdtxk: [phone]: [address] [place], [place] [address]Jdbez: [phone]: Toll Free: [phone] [email or web address] Raza Roldan M.D., Jhon Mora M.D.Barry Camarena M.D.Samara Hernandez D.O..Oksana Benson M.D.Jarod Stovall M.D.February 11, [address] [address]Ljjo Ms. Storey,You missed your scheduled appointment on Saturday February 11, 2017. Pleasecall our office to reschedule. If you need to cancel any futureappointments, please call to give us 24 hour notice so that we can offer yourappointment to another patient.Sincerely,Brando Carvajal. Normal [facility] 12-03-2016 [facility] RALEIGHSTEVEMagen Richey ([id number]) 1990 FDate Time Provider Rifyahrbwy67/24/17 1:00 PM CHAIR 1 JOSE HEMTCL During your visit today, we recorded the following information about you: Temperature Pulse Respiration Blood pressure 98.9 degrees 76/minute 18/minute 97/64Referring Provider: SAMARA HERNANDEZ [[id number]]Allergies As of Date: 12/03/2016(No Known Allergies)Date Reviewed: 12/03/2016Reviewed by: Kristi (Rn) JAD Partida - Fully AssessedPrimary Visit Diagnosis:Anemia, unspecified type [D64.9]Order(s):TREATMEN T PARAMETER-NOT NEEDED [4207530] Order #: [id number]: 1 HEMONC NURSING COMMUNICATION [[id number]] Order #: [id number]: 1 STANDING HEMONC NURSING COMMUNICATION [[id number]] Order #: [id number]: 1 STANDING HEMONC NURSING COMMUNICATION [[id number]] Order #: [id number]: 1 STANDING HEMONC NURSING COMMUNICATION [[id number]] Order #: [id number]: 1 STANDING HEMONC NURSING COMMUNICATION [[id number]] Order #: [id number]: 1 STANDING HEMONC NURSING COMMUNICATION [[id number]] Order #: [id number]: 1 STANDING [] iron sucrose 200 mg [...] (1 ML) INJECTION* 12/03/2016 Route: INTRAMUSCULAEncounter Number: [id number] Status:Closed by KRISTI PARTIDA on 12/03/16 [facility] CNOVSPon 11-19-2016 CNOVSP Visit (SP) Office (HEMACL) JUAN LUIS STOREY ([id number]) 1990 [facility] Time Provider Ulcqukvony77/10/17 11:00 AM SAMARA HERNANDEZ HEMACL During your visit today, we recorded the following information about you: Temperature Pulse Respiration Blood pressure 97.8 degrees 78/minute 18/minute 96/61 Weight Height 59.6 kg 1.632 mAprimarii Berger 11/19/2016 11:15 AM SignedPatient states feeling more fatigue.Samara Hernandez DO 11/23/2016 9:43 AM SignedPATIENT NAME: Juan Luis StoreyMRN: [id number] PHYSICIAN: IFTIKHAR RAZO[address] [place] [address] CARE PHYSICIAN: Iftikhar RazoOTHER PHYSICIANS:CHIEF COMPLAINT: Anemia, [...] PRESENT ILLNESS: This is a 26year old -Wallisian femaleCBC from 05/22/16 reveals white blood cell [...] her second kid in dec 2014.Works a [employer] service.June 04, 2016Eats a bag of ice [...] I answered all questions satisfactorily..Mariano Hernandez D.O.Medical OncologistWarrensburg, [place]Referring Provider: SAMARA HERNANDEZ [[id number]]Allergies As of Date: 11/19/2016(No Known Allergies)Date Reviewed: [...] BUPROPION XL 150 MG TAB >> Huong Ab 11/19/2016 11:15 AM >> AB MayNov [...] Status:Closed by SAMARA HERNANDEZ DO on 11/23/16 [facility] PROGRESSon 11-19-2016 PROGRESS HNO ID: [id number]: Samara HernandezSer: (none)Author Type: PhysicianType: Progress NotesFiled: 11/23/2016 9:43 AMNote Text:PATIENT NAME: Juan Luis Richey RaleighMRN: [id number] PHYSICIAN: IFTIKHAR RAZO[address] [place] [address] CARE PHYSICIAN: Iftikhar RazoOTHER PHYSICIANS:CHIEF COMPLAINT: Anemia, [...] PRESENT ILLNESS: This is a 26year old -Wallisian femaleCBC from 05/22/16 reveals white blood cell [...] her second kid in dec 2014.Works a [employer] service.June 04, 2016Eats a bag of [...] I answered all questions satisfactorily..Mariano Hernandez D.O.Medical OncologistWar[place], [place] Normal [facility] Remote CBCDIF (for [facility] use o nly)on 11-19-2016 Abs Baso 0.02 k/uL Normal <0.11 [facility] Abs [place] 0.40 k/uL Normal 0.00-0.86 [facility] Abs Neut 3.13 k/uL Normal 1.45-7.50 [facility] Basophils/100 WBC Auto (Bld) 0.4 % Normal [facility] Eosinophils 0.05 10*3/uL Normal <0.46 [facility] Eosinophils/100 leukocytes 0.9 % Normal [facility] Erythrocyte distribution width Auto Ratio (RBC) 13.5 % Normal 11.5-15.0 [facility] Erythrocytes (RBC) 3.87 10*6/uL Low 3.90-5.20 [facility] Hematocrit (HCT) 33.0 % Low 36.0-46.0 [facility] Hemoglobin mass conc (Bld) 10.5 g/dL Low 11.5-15.5 [facility] Lymphocytes 1.70 10*3/uL Normal 1.00-4.00 [facility] Lymphocytes/100 leukocytes 32.1 % Normal [facility] MCH 27.1 pG Normal 26.0-34.0 [facility] MCHC mass conc (RBC) 31.8 g/dL Normal 30.5-36.0 [facility] MCV 85.3 fL Normal 80.0-100.0 [facility] Monocytes/100 leukocytes 7.5 % Normal [facility] Neutrophils/100 WBC Auto (Bld) 59.1 % Normal [facility] Platelet mean volume (PMV) 11.0 fL Normal 9.0-12.7 [facility] Platelets 288 10*3/uL Normal 150-400 [facility] WBC (Leukocytes) 5.30 10*3/uL Normal 3.70-11.00 [facility] Remote iSTAT BMP (for [facility] us e only)on 11-19-2016 Anion gap 11 mmol/L Normal 0-15 [facility] BUN (urea nitrogen) 12 mg/dL Normal 8-25 [facility] Chloride 105 mmol/L Normal 98-110 [facility] CO2 24 mmol/L Normal 23-32 [facility] Creatinine 0.70 mg/dL Normal 0.70-1.40 [facility] eGFR (non-black) mL/min/{1.73_m2} Normal Cl [facility] Comment on above: Result Comment: eGFR (Estimated [...] Glucose mass conc 79 mg/dL Normal 65-100 [facility] Ionized Calcium, WB 1.14 mmol/L Normal 1.08-1.30 [facility] Comment on above: Result Comment: Lore reyes note: This value represents ionized calcium not total calcium. Potassium molar conc 4.0 mmol/L Normal 3.5-5.0 [facility] Sodium 140 mmol/L Normal 132-148 [facility] Ferritinon 10-29-2016 Ferritin 19.8 ng/mL Normal 14.7-205.1 [facility] Comment on above: Performed By: #### I CHERYL FERR ####[address] [phone] Iron and TIBCon 10-29-2016 Iron 21 ug/dL Low 41-186 [facility] Comment on above: Performed By: #### I CHERYL, FERR ####[address] [phone] TIBC 331 ug/dL Normal 232-386 [facility] Comment on above: Performed By: #### Aditya LUNA, FERR ####[address] [phone] Transferrin Saturatn 6 % Low 15-57 [facility] Comment on above: Performed By: #### Aditya LUNA FERR ####[address] [phone] Remote CBCDIF (for [facility] use o nly)on 10-29-2016 Abs Baso 0.02 k/uL Normal 0.00-0.10 [facility] Abs [place] 0.42 k/uL Normal 0.00-0.86 [facility] Abs Neut 3.06 k/uL Normal 1.45-7.50 [facility] Basophils/100 WBC Auto (Bld) 0.3 % Normal [facility] Eosinophils 0.11 10*3/uL Normal 0.00-0.45 [facility] Eosinophils/100 leukocytes 1.8 % Normal [facility] Erythrocyte distribution width Auto Ratio (RBC) 12.9 % Normal 11.5-15.0 [facility] Erythrocytes (RBC) 3.90 10*6/uL Normal 3.90-5.20 [facility] Hematocrit (HCT) 34.0 % Low 36.0-46.0 [facility] Hemoglobin mass conc (Bld) 10.8 g/dL Low 11.5-15.5 [facility] Lymphocytes 2.37 10*3/uL Normal 1.00-4.00 [facility] Lymphocytes/100 leukocytes 39.6 % Normal [facility] MCH 27.7 pG Normal 26.0-34.0 [facility] MCHC mass conc (RBC) 31.8 g/dL Normal 30.5-36.0 [facility] MCV 87.2 fL Normal 80.0-100.0 [facility] Monocytes/100 leukocytes 7.0 % Normal [facility] Neutrophils/100 WBC Auto (Bld) 51.3 % Normal [facility] Platelet mean volume (PMV) 10.8 fL Normal 9.0-12.7 [facility] Platelets 268 10*3/uL Normal 150-400 [facility] WBC (Leukocytes) 5.98 10*3/uL Normal 3.70-11.00 [facility] Remote iSTAT BMP (for [facility] us e only)on 10-29-2016 Anion gap 11 mmol/L Normal 0-15 [facility] BUN (urea nitrogen) 9 mg/dL Normal 8-25 [facility] Chloride 104 mmol/L Normal 98-110 [facility] CO2 26 mmol/L Normal 23-32 [facility] Creatinine 0.70 mg/dL Normal 0.70-1.40 [facility] eGFR (non-black) mL/min/{1.73_m2} Normal Cl [facility] Comment on above: Result Comment: eGFR (Estimated [...] Glucose mass conc 83 mg/dL Normal 65-100 [facility] Ionized Calcium, WB 1.16 mmol/L Normal 1.08-1.30 [facility] Comment on above: Result Comment: Plea se note: This value represents ionized calcium not total calcium. Potassium molar conc 3.8 mmol/L Normal 3.5-5.0 [facility] Sodium 141 mmol/L Normal 132-148 [facility] Ferritinon 10-01-2016 Ferritin 9.1 ng/mL Low 14.7-205.1 [facility] Comment on above: Performed By: #### I CHERYL FERR ####[address] [phone] Iron and TIBCon 10-01-2016 Iron 34 ug/dL Low 41-186 [facility] Comment on above: Performed By: #### I CHERYL, FERR ####[facility] [phone] TIBC 316 ug/dL Normal 232-386 [facility] Comment on above: Performed By: #### I CHERYL, FERR ####[facility] [address] [place], [place] [phone] Transferrin Saturatn 11 % Low 15-57 [facility] Comment on above: Performed By: #### I CHERYL, FERR ####[address] [phone] Remote CBCDIF (for [facility] use o nly)on 10-01-2016 Abs Baso 0.02 k/uL Normal 0.00-0.10 [facility] Abs [place] 0.53 k/uL Normal 0.00-0.86 [facility] Abs Neut 2.48 k/uL Normal 1.45-7.50 [facility] Basophils/100 WBC Auto (Bld) 0.4 % Normal [facility] Eosinophils 0.09 10*3/uL Normal 0.00-0.45 [facility] Eosinophils/100 leukocytes 1.6 % Normal [facility] Erythrocyte distribution width Auto Ratio (RBC) 13.7 % Normal 11.5-15.0 [facility] Erythrocytes (RBC) 3.85 10*6/uL Low 3.90-5.20 [facility] Hematocrit (HCT) 33.5 % Low 36.0-46.0 [facility] Hemoglobin mass conc (Bld) 10.7 g/dL Low 11.5-15.5 [facility] Lymphocytes 2.36 10*3/uL Normal 1.00-4.00 [facility] Lymphocytes/100 leukocytes 43.1 % Normal [facility] MCH 27.8 pG Normal 26.0-34.0 [facility] MCHC mass conc (RBC) 31.9 g/dL Normal 30.5-36.0 [facility] MCV 87.0 fL Normal 80.0-100.0 [facility] Monocytes/100 leukocytes 9.7 % Normal [facility] Neutrophils/100 WBC Auto (Bld) 45.2 % Normal [facility] Platelet mean volume (PMV) 10.8 fL Normal 9.0-12.7 [facility] Platelets 282 10*3/uL Normal 150-400 [facility] WBC (Leukocytes) 5.48 10*3/uL Normal 3.70-11.00 [facility] Remote iSTAT BMP (for [facility] us e only)on 10-01-2016 Anion gap 13 mmol/L Normal 0-15 [facility] BUN (urea nitrogen) 14 mg/dL Normal 8-25 [facility] Chloride 102 mmol/L Normal 98-110 [facility] CO2 24 mmol/L Normal 23-32 [facility] Creatinine 0.70 mg/dL Normal 0.70-1.40 [facility] eGFR (non-black) mL/min/{1.73_m2} Normal Cl [facility] Comment on above: Result Comment: eGFR (Estimated [...] Glucose mass conc 93 mg/dL Normal 65-100 [facility] Ionized Calcium, WB 1.14 mmol/L Normal 1.08-1.30 [facility] Comment on above: Result Comment: Lore reyes note: This value represents ionized calcium not total calcium. Potassium molar conc 3.7 mmol/L Normal 3.5-5.0 [facility] Sodium 139 mmol/L Normal 132-148 [facility] Remote CBCDIF (for [facility] use o nly)on 08-29-2016 Abs Baso 0.02 k/uL Normal 0.00-0.10 [facility] Abs [place] 0.52 k/uL Normal 0.00-0.86 [facility] Abs Neut 3.37 k/uL Normal 1.45-7.50 [facility] Basophils/100 WBC Auto (Bld) 0.3 % Normal [facility] Eosinophils 0.10 10*3/uL Normal 0.00-0.45 [facility] Eosinophils/100 leukocytes 1.7 % Normal [facility] Erythrocyte distribution width Auto Ratio (RBC) 18.7 % High 11.5-15.0 [facility] Erythrocytes (RBC) 3.97 10*6/uL Normal 3.90-5.20 [facility] Hematocrit (HCT) 33.0 % Low 36.0-46.0 [facility] Hemoglobin mass conc (Bld) 10.5 g/dL Low 11.5-15.5 [facility] Lymphocytes 1.92 10*3/uL Normal 1.00-4.00 [facility] Lymphocytes/100 leukocytes 32.4 % Normal [facility] MCH 26.4 pG Normal 26.0-34.0 [facility] MCHC mass conc (RBC) 31.8 g/dL Normal 30.5-36.0 [facility] MCV 83.1 fL Normal 80.0-100.0 [facility] Monocytes/100 leukocytes 8.8 % Normal [facility] Neutrophils/100 WBC Auto (Bld) 56.8 % Normal [facility] Platelet mean volume (PMV) 10.0 fL Normal 9.0-12.7 [facility] Platelets 263 10*3/uL Normal 150-400 [facility] WBC (Leukocytes) 5.93 10*3/uL Normal 3.70-11.00 [facility] Remote iSTAT BMP (for [facility] us e only)on 08-29-2016 Anion gap 12 mmol/L Normal 0-15 [facility] BUN (urea nitrogen) 12 mg/dL Normal 8-25 [facility] Chloride 104 mmol/L Normal 98-110 [facility] CO2 24 mmol/L Normal 23-32 [facility] Creatinine 0.80 mg/dL Normal 0.70-1.40 [facility] eGFR (non-black) mL/min/{1.73_m2} Normal Cl [facility] Comment on above: Result Comment: eGFR (Estimated [...] Glucose mass conc 91 mg/dL Normal 65-100 [facility] Ionized Calcium, WB 1.14 mmol/L Normal 1.08-1.30 [facility] Comment on above: Result Comment: Plea se note: This value represents ionized calcium not total calcium. Potassium molar conc 3.7 mmol/L Normal 3.5-5.0 [facility] Sodium 140 mmol/L Normal 132-148 [facility] Vital Signs Date Time Vital Sign Value Performing Clinician Facility 05-06-2024 09:41-0400 Body height 165.1 cm Raulito Jimenez DO Work Phone: [facility] 05-06-2024 09:41-0400 Body mass index (BMI) [Ratio] 31.62 kg/m2 Raulito Jimenez DO Work Phone: [facility] 05-06-2024 09:41-0400 Body temperature 98.2 [degF] Raulito Jimenez DO Work Phone: [facility] 05-06-2024 09:41-0400 Body weight 86.18 kg Raulito Jimenez DO Work Phone: [facility] 05-06-2024 09:41-0400 Diastolic blood pressure 78 mm[Hg] Raulito Jimenez DO Work Phone: [facility] 05-06-2024 09:41-0400 Heart rate 110 /min Raulito Jimenez DO Work Phone: [facility] 05-06-2024 09:41-0400 SaO2% (BldA) [Mass fraction] 98 % Raulito Jimenez DO Work Phone: [facility] 05-06-2024 09:41-0400 Systolic blood pressure 138 mm[Hg] Raulito Jimenez DO [facility] [facility] 04-26-2024 10:26-0400 Body mass index (BMI) [Ratio] 30.65 kg/m2 Parish Courtney DO Work Phone: [facility] 04-26-2024 10:26-0400 Body weight 83.55 kg Parish Courtney DO Work Phone: [facility] 04-26-2024 10:26-0400 Diastolic blood pressure 76 mm[Hg] Parish Courtney DO Work Phone: [facility] 04-26-2024 10:26-0400 Systolic blood pressure 122 mm[Hg] Parish Courtney DO Work Phone: [facility] 04-19-2024 13:13-0400 Body temperature 99.19 [degF] Wl [facility] 04-19-2024 13:13-0400 Diastolic blood pressure 79 mm[Hg] Wl 1 [facility] 04-19-2024 13:13-0400 Heart rate 96 /min Wl 1 [facility] 04-19-2024 13:13-0400 Respiratory rate 20 /min Wl [facility] 04-19-2024 13:13-0400 Systolic blood pressure 116 mm[Hg] Wl 1 [facility] 04-19-2024 10:41-0400 Body mass index (BMI) [Ratio] 30.63 kg/m2 [facility] 04-19-2024 10:41-0400 Body weight 83.5 kg [facility] 1 [facility] 04-19-2024 09:53-0400 Body height 165.1 cm Sharda Montiel MD Work Phone: [facility] 04-19-2024 09:53-0400 Body mass index (BMI) [Ratio] 30.62 kg/m2 Sharda Montiel MD Work Phone: [facility] 04-19-2024 09:53-0400 Body weight 83.46 kg Sharda Montiel MD Work Phone: [facility] 04-19-2024 09:53-0400 Diastolic blood pressure 86 mm[Hg] Sharda Montiel MD Work Phone: [facility] 04-19-2024 09:53-0400 Systolic blood pressure 140 mm[Hg] Sharda Montiel MD Work Phone: [facility] 04-14-2024 14:33-0500 Body mass index (BMI) [Ratio] 30.42 kg/m2 Parish Courtney DO Work Phone: [facility] 04-14-2024 14:33-0500 Body weight 82.92 kg Parish Courtney DO Work Phone: [facility] 04-14-2024 14:33-0500 Diastolic blood pressure 72 mm[Hg] Parish Courtney DO Work Phone: [facility] 04-14-2024 14:33-0500 Systolic blood pressure 122 mm[Hg] Parish Courtney DO Work Phone: [facility] 03-17-2024 10:51-0500 Body mass index (BMI) [Ratio] 29.31 kg/m2 Yaquelin Horne PA Work Phone: [facility] 03-17-2024 10:51-0500 Body weight 79.89 kg Yaquelin Horne PA Work Phone: [facility] 03-17-2024 10:51-0500 Diastolic blood pressure 70 mm[Hg] Yaquelin Horne PA Work Phone: [facility] 03-17-2024 10:51-0500 Systolic blood pressure 116 mm[Hg] Yaquelin Horne PA Work Phone: [facility] 03-08-2024 12:30-0500 Body temperature 99.81 [degF] Wlc 1 [facility] [place] [facility] 03-08-2024 12:30-0500 Diastolic blood pressure 69 mm[Hg] [facility] 1 [facility] 03-08-2024 12:30-0500 Heart rate 103 /min [facility] 1 [facility] 03-08-2024 12:30-0500 Respiratory rate 18 /min Wlc [address] [facility] [place] [facility] 03-08-2024 12:30-0500 Systolic blood pressure 109 mm[Hg] [facility] 1 [facility] 03-08-2024 10:10-0500 Body mass index (BMI) [Ratio] 29.62 kg/m2 [facility] 1 [facility] 03-08-2024 10:10-0500 Body weight 80.74 kg W[facility] 1 [facility] 02-18-2024 11:43-0500 Body mass index (BMI) [Ratio] 29.29 kg/m2 Parish Courtney DO Work Phone: [facility] 02-18-2024 11:43-0500 Body weight 79.83 kg Parish Courtney DO Work Phone: [facility] 02-18-2024 11:43-0500 Diastolic blood pressure 72 mm[Hg] Parish Courtney DO Work Phone: [facility] 02-18-2024 11:43-0500 Systolic blood pressure 122 mm[Hg] Parish Courtney DO Work Phone: [facility] 12-12-2023 11:50-0400 Body temperature 98.91 [degF] Wlc 2 [facility] 12-12-2023 11:50-0400 Diastolic blood pressure 66 mm[Hg] [facility] 2 [facility] 12-12-2023 11:50-0400 Heart rate 92 /min [facility] 2 [facility] 12-12-2023 11:50-0400 Respiratory rate 18 /min Wlc [facility] 12-12-2023 11:50-0400 Systolic blood pressure 100 mm[Hg] [facility] 2 [facility] 12-12-2023 10:31-0400 Body mass index (BMI) [Ratio] 27.96 kg/m2 [facility] 2 [facility] 12-12-2023 10:31-0400 Body weight 76.2 kg [facility] 2 [facility] 12-01-2023 14:25-0400 Body height 165.1 cm Dominique Josh HERNANDEZN-PIT RECORDER Work Phone: [facility] 12-01-2023 14:25-0400 Body mass index (BMI) [Ratio] 27.89 kg/m2 Dominique Josh HERNANDEZN-PIT RECORDER Work Phone: [facility] 12-01-2023 14:25-0400 Body temperature 98.8 [degF] Dominique Josh HERNANDEZN-PIT RECORDER Work Phone: [facility] 12-01-2023 14:25-0400 Body weight 76.02 kg Dominique Josh HERNANDEZN-PIT RECORDER Work Phone: [facility] 12-01-2023 14:25-0400 Diastolic blood pressure 76 mm[Hg] Dominique Josh REPORT MANAGER-PIT RECORDER Work Phone: [facility] 12-01-2023 14:25-0400 Heart rate 71 /min Dominique Josh REPORT MANAGER-PIT RECORDER Work Phone: [facility] 12-01-2023 14:25-0400 Respiratory rate 16 /min Dominique Josh REPORT MANAGER-PIT RECORDER Work Phone: [facility] 12-01-2023 14:25-0400 SaO2% (BldA) [Mass fraction] 99 % Dominique Josh REPORT MANAGER-PIT RECORDER Work Phone: [facility] 12-01-2023 14:25-0400 Systolic blood pressure 111 mm[Hg] Dominique Josh REPORT MANAGER-PIT RECORDER Work Phone: [facility] 10-31-2023 11:13-0400 Body temperature 98.6 [degF] [facility] 10-31-2023 11:13-0400 Diastolic blood pressure 72 mm[Hg] [facility] 10-31-2023 11:13-0400 Heart rate 85 /min [facility] 10-31-2023 11:13-0400 Respiratory rate 18 /min [facility] 10-31-2023 11:13-0400 Systolic blood pressure 112 mm[Hg] [facility] 10-31-2023 09:51-0400 Body mass index (BMI) [Ratio] 27.81 kg/m2 [facility] 10-31-2023 09:51-0400 Body weight 75.8 kg [facility] 10-31-2023 08:50-0400 Body height 165.1 cm Sharda Montiel MD Work Phone: [facility] 10-31-2023 08:50-0400 Body mass index (BMI) [Ratio] 27.79 kg/m2 Sharda Montiel MD Work Phone: [facility] 10-31-2023 08:50-0400 Body weight 75.75 kg Sharda Montiel MD Work Phone: [facility] 10-31-2023 08:50-0400 Diastolic blood pressure 60 mm[Hg] Sharda Montiel MD Work Phone: [facility] 10-31-2023 08:50-0400 Systolic blood pressure 100 mm[Hg] Sharda Montiel MD Work Phone: [facility] 09-17-2023 09:46-0400 Body mass index (BMI) [Ratio] 27.06 kg/m2 Hilary Aviles REPORT MANAGER-PIT RECORDER Work Phone: [facility] 09-17-2023 09:46-0400 Body temperature 98.2 [degF] Hilary Aviles REPORT MANAGER-PIT RECORDER Work Phone: [facility] 09-17-2023 09:46-0400 Body weight 73.75 kg Hilary Ruizsler REPORT MANAGER-PIT RECORDER Work Phone: [facility] 09-17-2023 09:46-0400 Diastolic blood pressure 60 mm[Hg] Hilary Aviles REPORT MANAGER-PIT RECORDER Work Phone: [facility] 09-17-2023 09:46-0400 Heart rate 75 /min Hilary Aviles REPORT MANAGER-PIT RECORDER Work Phone: [facility] 09-17-2023 09:46-0400 SaO2% (BldA) [Mass fraction] 97 % Hilary Aviles REPORT MANAGER-PIT RECORDER Work Phone: [facility] 09-17-2023 09:46-0400 Systolic blood pressure 98 mm[Hg] Hilary Aviles REPORT MANAGER-PIT RECORDER Work Phone: [facility] 09-15-2023 12:10-0400 Body temperature 98.71 [degF] Wl 3 [facility] 09-15-2023 12:10-0400 Diastolic blood pressure 70 mm[Hg] [facility] 3 [facility] 09-15-2023 12:10-0400 Heart rate 75 /min [facility] 09-15-2023 12:10-0400 Respiratory rate 20 /min [facility] 3 [facility] 09-15-2023 12:10-0400 Systolic blood pressure 117 mm[Hg] [facility] 3 [facility] 09-15-2023 10:43-0400 Body mass index (BMI) [Ratio] 26.89 kg/m2 [address] 09-15-2023 10:43-0400 Body weight 73.[address] 08-20-2023 14:15-0400 Body height 165.1 cm Hilary Aviles APRN-PIT RECORDER Work Phone: [facility] 08-20-2023 14:15-0400 Body mass index (BMI) [Ratio] 26.36 kg/m2 Hilary Aviles APRN-PIT RECORDER Work Phone: [facility] 08-20-2023 14:15-0400 Body temperature 98.6 [degF] Hilary Traci REPORT MANAGER-PIT RECORDER Work Phone: [facility] 08-20-2023 14:15-0400 Body weight 71.85 kg Hilary Aviles REPORT MANAGER-PIT RECORDER Work Phone: [facility] 08-20-2023 14:15-0400 Diastolic blood pressure 72 mm[Hg] Hilary Aviles APRN-PIT RECORDER Work Phone: [facility] 08-20-2023 14:15-0400 Heart rate 87 /min Hilary Aviles REPORT MANAGER-PIT RECORDER Work Phone: [facility] 08-20-2023 14:15-0400 SaO2% (BldA) [Mass fraction] 97 % Hilary Aviles REPORT MANAGER-PIT RECORDER Work Phone: [facility] 08-20-2023 14:15-0400 Systolic blood pressure 116 mm[Hg] Hilary Aviles APRN-PIT RECORDER Work Phone: [facility] 08-04-2023 14:48-0400 Body temperature 98.2 [degF] [facility] 2 [facility] 08-04-2023 14:48-0400 Diastolic blood pressure 77 mm[Hg] [facility] 08-04-2023 14:48-0400 Heart rate 76 /min Wl 2 [facility] 08-04-2023 14:48-0400 Respiratory rate 20 /min Wl 2 [facility] 08-04-2023 14:48-0400 Systolic blood pressure 118 mm[Hg] [facility] 08-04-2023 13:22-0400 Body mass index (BMI) [Ratio] 27.19 kg/m2 [facility] 08-04-2023 13:22-0400 Body weight 74.12 kg [facility] 04-21-2023 13:05-0400 Body temperature 97.81 [degF] [facility] 4 [facility] 04-21-2023 13:05-0400 Diastolic blood pressure 75 mm[Hg] [facility] 4 [facility] 04-21-2023 13:05-0400 Heart rate 78 /min [facility] 04-21-2023 13:05-0400 Respiratory rate 20 /min [facility] 04-21-2023 13:05-0400 Systolic blood pressure 117 mm[Hg] [facility] 4 [facility] 04-21-2023 10:29-0400 Body mass index (BMI) [Ratio] 27.89 kg/m2 [facility] 4 [facility] 04-21-2023 10:29-0400 Body weight 76.02 kg [facility] 4 [facility] 02-20-2023 11:48-0500 Body height 165.1 cm Lyndsey Anders MD Work Phone: [facility] 02-20-2023 11:48-0500 Body mass index (BMI) [Ratio] 27.46 kg/m2 Lyndsey Anders MD Work Phone: [facility] 02-20-2023 11:48-0500 Body temperature 98.91 [degF] Lyndsey Anders MD Work Phone: [facility] 02-20-2023 11:48-0500 Body weight 74.84 kg Lyndsey Anders MD Work Phone: [facility] 02-20-2023 11:48-0500 Diastolic blood pressure 72 mm[Hg] Lyndsey Anders MD Work Phone: [facility] 02-20-2023 11:48-0500 Heart rate 104 /min Lyndsey Anders MD Work Phone: [facility] 02-20-2023 11:48-0500 SaO2% (BldA) [Mass fraction] 99 % Lyndsey Anders MD Work Phone: [facility] 02-20-2023 11:48-0500 Systolic blood pressure 114 mm[Hg] Lyndsey Anders MD Work Phone: [facility] 02-17-2023 14:26-0500 Body temperature 99.1 [degF] [address] 02-17-2023 14:26-0500 Diastolic blood pressure 77 mm[Hg] [address] 02-17-2023 14:26-0500 Heart rate 100 /min [address] 02-17-2023 14:26-0500 SaO2% (BldA) [Mass fraction] 97 % [address] 02-17-2023 14:26-0500 Systolic blood pressure 117 mm[Hg] [address] 02-17-2023 11:45-0500 Body mass index (BMI) [Ratio] 27.69 kg/m2 [address] 02-17-2023 11:45-0500 Body weight 75.[address] 02-17-2023 11:45-0500 Respiratory rate 20 /min Wlc 3 [facility] 02-06-2023 12:54-0500 Diastolic blood pressure 69 mm[Hg] [facility] 3 [facility] 02-06-2023 12:54-0500 Heart rate 92 /min [facility] 3 [facility] 02-06-2023 12:54-0500 Respiratory rate 18 /min Pfo 3 [facility] 02-06-2023 12:54-0500 SaO2% (BldA) [Mass fraction] 100 % [facility] 3 [facility] 02-06-2023 12:54-0500 Systolic blood pressure 104 mm[Hg] [facility] 3 [facility] 02-06-2023 11:37-0500 Body height 165.1 cm [facility] 3 [facility] 02-06-2023 11:37-0500 Body mass index (BMI) [Ratio] 27.46 kg/m2 [facility] 3 [facility] 02-06-2023 11:37-0500 Body temperature 98.4 [degF] Pfo 3 [facility] 02-06-2023 11:37-0500 Body weight 74.84 kg [facility] 3 [facility] Encounters Encounter Date Encounter Type Care Provider Facility Start: 05-08-2024 End: 05-08-2024 Clinisync Result Encounter Parish Valdez DO Work Phone: [facility] External Department Unsolicited Start: 05-08-2024 End: 05-08-2024 Clinisync Result Encounter Parish Courtney DO Work Phone: [facility] External Department Unsolicited Start: 05-06-2024 End: 05-06-2024 ambulatory ALBANY Russ [facility] Start: 05-06-2024 End: 05-06-2024 Office outpatient visit 25 minutes Raulito Jimenez DO Work Phone: [facility] Comment on above: HTN complicating per ipregnancy, antepartum, second trimester (Primary Dx); 26 weeks gestation of ; Anemia affecting fourth ; HTN, goal below 130/80 Start: 05-04-2024 End: 05-04-2024 Chart abstracting Deepthi Tomas MD Work Phone: [facility] Start: 04-26-2024 End: 04-26-2024 Bamboo flowsheet Parish [...] Orders Only Sharda Montiel MD Work Phone: [facility] Comment on above: Ulcerative colitis w ith other complication, unspecified location (CMS-HCC) (Primary Dx) Start: 04-22-2024 End: 04-22-2024 Orders Only Sharda Montiel MD Work Phone: [facility] Comment on above: Crohn's disease of c olon with other complication ([facility]-HCC) (Primary Dx) Start: 04-21-2024 End: 04-21-2024 ambulatory YAQUELIN HORNE Not Available Start: 04-20-2024 End: 04-20-2024 Orders Only Sharda Montiel MD Work Phone: [facility], A Department of [facility] Start: 04-19-2024 End: 04-21-2024 Telephone encounter Sharda Montiel MD Work Phone: [facility] Start: 04-19-2024 End: 04-19-2024 ambulatory HILARY AVILES [facility] Start: 04-19-2024 End: 04-19-2024 Office outpatient visit 40 minutes Sh[facility]iel MD [facility] Comment on above: Thrombocytopenia (CM S-HCC) (Primary Dx); Crohn's disease with complication, unspecified gastrointestinal tract location (CMS-HCC) Start: 04-19-2024 End: 04-19-2024 ambulatory [facility] Comment on above: [...] Department Unsolicited Start: 03-08-2024 End: 03-08-2024 ambulatory [facility] 1 [facility] Comment on [...] 01-31-2024 End: 01-31-2024 Emergency department patient visit [facility] Start: 01-26-2024 End: 01-26-2024 ambulatory [facility] Start: 01-26-2024 End: 01-26-2024 ambulatory [facility] Start: 01-23-2024 End: 01-23-2024 ambulatory YAQUELIN HORNE Not Available Start: 01-23-2024 End: 01-23-2024 Office outpatient visit 5 minutes [facility] Courtney Nurse [facility] Comment on above: GA: 11w2d Start: 01-13-2024 End: 01-13-2024 Orders Only Dominique Moya REPORT MANAGER-PIT RECORDER Work Phone: [facility] Comment on above: Iron deficiency anem ia due to chronic blood loss (Primary Dx); Iron malabsorption; Iron deficiency anemia, unspecified Start: 01-06-2024 End: 01-06-2024 Orders Only Dominique Moya REPORT MANAGER-PIT RECORDER Work Phone: [facility] R[facility] Comment on above: Iron deficiency anem ia due to chronic blood loss (Primary Dx); Iron malabsorption; Iron deficiency anemia, unspecified Start: 01-03-2024 End: 01-03-2024 Emergency department patient visit [facility] Start: 12-17-2023 End: 12-18-2023 Telephone encounter Raf Zarco RN [facility] Start: 12-12-2023 End: 12-12-2023 ambulatory [facility] 2 [facility] Comment on above: Crohn's disease of b oth small and large intestine with intestinal obstruction (CMS-HCC) (Primary Dx) Start: 12-01-2023 End: 12-01-2023 Office outpatient visit 25 minutes Dominique Magen Josh REPORT MANAGER-PIT RECORDER Work Phone: [facility] Comment on above: Iron deficiency (Ping hussein Dx); Crohn's disease of both small and large intestine with intestinal obstruction (CMS-HCC); Chronic fatigue; Leg cramps; Noncompliance; Iron deficiency anemia due to chronic blood loss; Iron malabsorption; Iron deficiency anemia, unspecified Start: 12-01-2023 End: 12-01-2023 ambulatory DOMINIQUECHET MOYA [facility] Start: 12-01-2023 End: 12-01-2023 ambulatory MJ PIZARRO [facility] Start: 10-31-2023 End: 10-31-2023 Office outpatient visit 25 minutes Sharda Montiel MD [facility] Phone[facility] Comment on above: Therapeutic drug mon itoring (Primary Dx); Crohn's disease of both small and large intestine with other complication (CMS-HCC) Start: 10-31-2023 End: 10-31-2023 ambulatory [facility] 2 [facility] Comment on above: Crohn's disease of b oth small and large intestine with intestinal obstruction (CMS-HCC) (Primary Dx) Start: 09-17-2023 End: 09-17-2023 ambulatory [facility] Start: 09-17-2023 End: 09-17-2023 Office outpatient visit 25 minutes Hilary Aviles REPORT MANAGER-PIT RECORDER Work Phone: [facility] Comment on above: Current moderate epi sode of major depressive disorder without prior episode (CMS-HCC) (Primary Dx); Crohn's disease of both small and large intestine with intestinal obstruction (CMS-HCC) Start: 09-15-2023 End: 09-16-2023 Telephone encounter Sharda Montiel MD Work Phone: [facility] Start: 09-15-2023 End: 09-15-2023 ambulatory [facility] 3 [facility] Comment on above: Crohn's disease of b oth small and large intestine with intestinal obstruction (CMS-HCC) (Primary Dx) Start: 09-03-2023 End: 09-03-2023 Telephone encounter Hilary Aviles REPORT MANAGER-PIT RECORDER Work Phone: [facility] Start: 09-03-2023 End: 09-03-2023 ambulatory [facility] Start: 09-03-2023 End: 09-03-2023 Phys/qhp telephone evaluation 11-20 min Hilary Aviles REPORT MANAGER-PIT RECORDER Work Phone: [facility] Comment on above: Reactive depression (Primary Dx) Start: 08-20-2023 End: 08-20-2023 ambulatory [facility] Start: 08-20-2023 End: 08-20-2023 Office outpatient visit 25 minutes Hilary Aviles REPORT MANAGER-PIT RECORDER Work Phone: [facility] Comment on above: Anxiety (Primary Dx) Start: 08-04-2023 End: 08-04-2023 ambulatory [facility] 2 [facility] [...] [facility] Start: 04-21-2023 End: 04-21-2023 ambulatory [facility] 4 [facility] Comment on above: Crohn's disease of b oth small and large intestine with intestinal obstruction (CMS-HCC) (Primary Dx) Start: 04-14-2023 Telephone encounter Nic Quintana [facility] Start: 03-31-2023 Telephone encounter Nic Quintana [facility] Start: 03-19-2023 End: 03-19-2023 ambulatory LYNDSEY ANDERS [facility] Start: 02-20-2023 End: 02-20-2023 Office outpatient visit 25 minutes Lyndsey Anders MD Work Phone: [facility] Comment on above: Reactive airway dise ase with acute exacerbation, unspecified asthma severity, unspecified whether persistent (Primary Dx); Shortness of breath; COVID-19; Sinusitis, unspecified chronicity, unspecified location Start: 02-17-2023 End: 02-17-2023 ambulatory [facility] Comment on above: Crohn's disease of b oth small and large intestine with intestinal obstruction (CMS-HCC) (Primary Dx) Start: 02-06-2023 End: 02-06-2023 ambulatory MJ PIZARRO [facility] Comment on above: Iron deficiency anem ia due to chronic blood loss (Primary Dx); Iron deficiency anemia, unspecified; Iron malabsorption Start: 04-30-2022 End: 04-30-2022 ambulatory SEBASTIAN HERRING Facility: Start: 12-03-2016 End: 12-04-2016 Ambulatory SAMARA HERNANDEZ [facility] Start: 11-19-2016 End: 11-26-2016 Ambulatory SAMARA HERNANDEZ [facility] Start: 10-29-2016 End: 10-30-2016 Ambulatory SAMARA HERNANDEZ [facility] Start: 10-01-2016 End: 10-01-2016 Ambulatory SAMARA HERNANDEZ [facility] Start: 08-29-2016 End: 08-29-2016 Ambulatory SAMARA HERNANDEZ [facility] Procedures Date Procedure Procedure Detail Performing Clinician Start: 05-08-2024 GLUCOSE TOLERANCE 3 HOUR Parish Courtney DO Work Phone: Start: 05-06-2024 Adult depression scr eening assessment [...] Adult depression scr eening assessment Hilary Aviles REPORT MANAGER-PIT RECORDER Work Phone: Start: 09-17-2023 Microscopic observat ion [Identifier] in Cervix by Cyto stain Sharda Montiel MD Work Phone: Start: 08-20-2023 Adult depression scr eening assessment Hilary Aviles REPORT MANAGER-PIT RECORDER Work Phone: Start: 11-23-2020 Adult depression scr eening assessment Pfo 3 Plan of Treatment Date Care Activity Detail Author Start: 09-16-2026 Screening for malign ant neoplasm of cervix Pap Smear [facility] Start: 05-06-2025 Adult BMI Screening Adult BMI Screen ing [facility] Start: 05-06-2025 Depression Screening Depression Scre ening [facility] Start: 05-06-2025 Tobacco Screening Tobacco Screening [facility] Start: 04-19-2025 Adult BMI Screening Adult BMI Screen ing [facility] Start: 04-19-2025 [facility] Start: 01-30-2025 Adult BMI Screening Adult BMI Screen ing [facility] Start: 01-30-2025 Tobacco Screening [facility] Start: 01-02-2025 Adult BMI Screening Adult BMI Screen ing [facility] Start: 01-02-2025 Tobacco Screening Tobacco Screening [facility] Start: 12-11-2024 Adult BMI Screening Adult BMI Screen ing [facility] Start: 12-02-2024 End: 12-02-2024 Patient encounter procedure 12/02/2024 10:15 AM EDT Office Visit Ally Lovell [facility] [address] [place] [id number] Mj Pizarro MD [address] [place] [address] [address] [place] [address] Al[facility] Lovell [facility] Start: 10-30-2024 Adult BMI Screening Adult BMI Screen ing [facility] Start: 10-30-2024 Tobacco Screening Tobacco Screening [facility] Start: 09-16-2024 Adult BMI Screening Adult BMI Screen ing [facility] Start: 09-16-2024 Depression Screening Depression Scre ening [facility] Start: 09-16-2024 [facility] Screening [facility] Start: 09-14-2024 Adult BMI Screening Adult BMI Screen ing [facility] Start: 09-02-2024 Tobacco Screening Tobacco Screening [facility] Start: 08-19-2024 Adult BMI Screening Adult BMI Screen ing [facility] Start: 08-19-2024 Depression Screening Depression Scre ening [facility] Start: 08-19-2024 Tobacco Screening Tobacco Screening [facility] Start: 08-03-2024 Adult BMI Screening Adult BMI Screen ing [facility] Start: 06-28-2024 End: 06-28-2024 ambulatory 06/28/2024 10:30 AM EDT Infusion [facility] [address] [place] [phone] [facility] Start: 06-02-2024 End: 06-02-2024 Patient encounter procedure 06/02/2024 8:45 AM EDT Office Visit Maternal- Medicine at [facility] [address] [place] [phone] Deepthi Tomas MD [address] [facility] [address] [place] [address] Maternal- Medicine at [facility] Start: 06-02-2024 End: 06-02-2024 Patient encounter procedure 06/02/2024 7:30 AM EDT Appointment [facility] [address] [place] [address] [facility] Start: 05-31-2024 End: 05-31-2024 ambulatory 05/31/2024 10:00 AM EDT Infusion [facility] [address] [place] [phone] [facility] Start: 05-24-2024 End: 05-24-2024 ambulatory 05/24/2024 10:30 AM EDT Infusion [facility] [address] [place] [phone] [facility] Start: 05-12-2024 End: 05-12-2024 Patient encounter procedure 05/12/2024 2:30 PM EDT Routine [facility] [address] [place] [place] [phone] Yaquelin Horne PA [address] [place] [address] [facility] Start: 05-06-2024 End: 05-06-2025 Echo complete W/O contrast Echo complete W/O contrast Echocardiography Routine HTN complicating peripregnancy, antepartum, second trimester 26 weeks gestation of Expected: 05/06/2024, Expires: 05/06/2025 [employer] Work Phone: Comment on above: Expected: 05/06/2024 , Expires: 05/06/2025 Start: 04-26-2024 End: 04-26-2024 Patient encounter procedure 04/26/2024 10:10 AM EDT Office Visit [facility] [address] [place] [phone] Parish Valdez DO [address] [place] [address] Arrived [facility] Comment on above: Arrived Start: 04-21-2024 End: 04-21-2024 Professional / ancillary services management 04/21/2024 11:00 AM EDT Ancillary Procedure [facility] [address] [place] [phone] [facility] Start: 04-20-2024 Adult BMI Screening Adult BMI Screen ing [facility] Start: 04-19-2024 End: 04-19-2025 Cyanocobalamin vitamin b-12 Vitamin B12 Lab Routine Crohn's disease with complication, unspecified gastrointestinal tract location ([facility]) Expected: 04/19/2024, Expires: 04/19/2025 [facility] Comment on above: Expected: 04/19/2024 , Expires: 04/19/2025 Start: 04-19-2024 End: 04-19-2024 ambulatory 04/19/2024 10:30 AM EDT Infusion [facility] [address] [facility][Note 3] [address] [place] [phone] [facility] Start: 04-19-2024 End: 04-19-2024 Patient encounter procedure [facility] Start: 04-14-2024 End: 04-14-2025 CBC panel - Blood by Automated count CBC Lab Routine Diabetes mellitus screening Expected: 04/14/2024 (Approximate), Expires: 04/14/2025 [facility] Work Phone: Comment on above: Expected: 04/14/2024 (Approximate), Expires: 04/14/2025 Start: 04-14-2024 End: 04-14-2025 Measurement of glucose 1 hour after glucose challenge for glucose tolerance test Glucose tolerance, 1 hour Lab Routine Diabetes mellitus screening Expected: 04/14/2024 (Approximate), Expires: 04/14/2025 [facility] Comment on above: Expected: 04/14/2024 (Approximate), Expires: 04/14/2025 Start: 04-14-2024 End: 04-14-2024 Patient encounter procedure 04/14/2024 1:40 PM EST Routine [facility] [address] [place] [phone] Parish Valdez, [address] [place] [address] [facility] Start: 03-17-2024 End: 09-14-2024 Alpha fetoprotein, maternal Alpha fetoprotein, maternal Lab Routine Second trimester 19 weeks gestation of Expected: 03/17/2024 (Approximate), Expires: 09/14/2024 [facility] Comment on above: Expected: 03/17/2024 (Approximate), Expires: 09/14/2024 Start: 03-17-2024 End: 03-17-2025 US for US OB 14+ weeks anatomy scan Imaging Routine Screening, , for anatomic survey Expected: 03/17/2024, Expires: 03/17/2025 [facility] Comment on above: Expected: 03/17/2024 , Expires: 03/17/2025 Start: 03-17-2024 End: 03-17-2024 Patient encounter procedure 03/17/2024 10:30 AM EST Routine [facility] [address] [place] [phone] Yaquelin Horne PA [address] [place] [address] [facility] Start: 03-08-2024 End: 03-08-2024 ambulatory 03/08/2024 10:00 AM EST Infusion [facility] [address] [place] [phone] [facility] Start: 02-21-2024 Adult BMI Screening Adult BMI Screen ing [facility] Start: 02-21-2024 Tobacco Screening Tobacco Screening [facility] Start: 02-18-2024 Adult BMI Screening Adult BMI Screen ing [facility] Start: 02-18-2024 End: 02-18-2024 Patient encounter procedure 02/18/2024 11:30 AM EST Routine [facility] [address] [place] [phone] Parish Valdez DO [address] [place] [address] [facility] Start: 02-07-2024 Tobacco Screening Tobacco Screening [facility] Start: 01-31-2024 Adult BMI Screening Adult BMI Screen ing [facility] Start: 01-31-2024 Tobacco Screening Tobacco Screening [facility] Start: 01-26-2024 End: 01-26-2024 ambulatory 01/26/2024 10:00 AM EST Infusion [facility] [address] [place] [phone] [facility] Start: 01-23-2024 End: 01-22-2025 ABO/Rh ABO/Rh Lab Routine Missed menses , unspecified gestational age Expected: 01/23/2024 (Approximate), Expires: 01/22/2025 [facility] Comment on above: Expected: 01/23/2024 (Approximate), Expires: 01/22/2025 Start: 01-23-2024 End: 01-22-2025 Blood type and Indirect antibody screen panel - Blood Type and screen Lab Routine Missed menses , unspecified gestational age Expected: 01/23/2024 (Approximate), Expires: 01/22/2025 [facility] Work Phone: Comment on above: Expected: 01/23/2024 (Approximate), Expires: 01/22/2025 Start: 01-23-2024 End: 01-22-2025 Drugs of abuse panel - Urine by Screen method Rapid drug screen, urine Lab Routine , unspecified gestational age Encounter for supervision of normal first in first trimester Expected: 01/23/2024 (Approximate), Expires: 01/22/2025 [facility] Comment on above: Expected: 01/23/2024 (Approximate), Expires: 01/22/2025 Start: 01-23-2024 End: 01-22-2025 US Pelvis transvaginal US OB transvaginal Imaging Routine Missed menses Expected: 01/23/2024 (Approximate), Expires: 01/22/2025 [facility] Comment on above: Expected: 01/23/2024 (Approximate), Expires: 01/22/2025 Start: 12-22-2023 End: 12-22-2023 Patient encounter procedure 12/22/2023 3:40 PM EST Office Visit [facility] [address] [place] [place] [address] [place] [address] Hilary Aviles, REPORT MANAGER-PIT RECORDER [address], [facility] [address] [facility] Start: 12-12-2023 End: 12-12-2023 ambulatory 12/12/2023 10:00 AM EDT Infusion [facility] [address] [place] [phone] [facility] Start: 11-20-2023 End: 11-20-2023 Patient encounter procedure 11/20/2023 1:00 PM EDT Office Visit Ally Lovell [facility] [address] [place] [phone] Mj Pizarro MD [address] [place] [address] [address] [place] [address] [facility] Start: 11-19-2023 End: 11-19-2023 Patient encounter procedure 11/19/2023 9:40 AM EDT Office Visit [facility] [address] [place] [place] [address] [place] [phone] Hilary Aviles, REPORT MANAGER-PIT RECORDER [address], [place] [address] [facility] Start: 10-31-2023 End: 10-30-2024 C-reactive protein C-reactive protein Lab Routine Crohn's disease of both small and large intestine with other complication ([facility]) Expected: 10/31/2023, Expires: 10/30/2024 [facility] Comment on above: Expected: 10/31/2023 , Expires: 10/30/2024 Start: 10-31-2023 End: 10-30-2024 Cyanocobalamin vitamin b-12 Vitamin B12 Lab Routine Crohn's disease of both small and large intestine with other complication ([facility]) Expected: 10/31/2023, Expires: 10/30/[address] [facility] Comment on above: Expected: 10/31/2023 , Expires: 10/30/2024 Start: 10-31-2023 End: 10-30-2024 Erythrocyte sedimentation rate Erythrocyte Sedimentation Rate (ESR) Lab Routine Crohn's disease of both small and large intestine with other complication (CMS-HCC) Expected: 10/31/2023, Expires: 10/30/2024 [facility] Comment on above: Expected: 10/31/2023 , Expires: 10/30/2024 Start: 10-31-2023 End: 10-31-2023 ambulatory 10/31/2023 9:30 AM EDT Infusion [facility] [address] [facility] [facility] [place] [address] [facility] Start: 10-31-2023 End: 10-31-2023 Patient encounter procedure 10/31/2023 9:00 AM EDT Office Visit [facility] [address] [facility] [facility] [place] [phone] Sharda Montiel MD [address] [facility], [address] [place] [address] [facility] Start: 10-27-2023 End: 10-27-2023 ambulatory 10/27/2023 12:00 PM EDT Infusion [facility] [address] [facility] [facility] [place] [address] [facility] Start: 10-27-2023 End: 10-27-2023 Patient encounter procedure 10/27/2023 11:30 AM EDT Office Visit [facility] [address] [facility]] [address] [facility] [place] [address] Sharda Montiel MD [address] [facility], [address] [place] [address] [facility] Start: 10-12-2023 Influenza vaccination Influenza Vacc ine [facility] Start: 09-17-2023 End: 09-17-2023 Patient encounter procedure 09/17/2023 9:20 AM EDT Office Visit [facility] [address] [place] [address] [place] [address] Hilary Aviles, REPORT MANAGER-PIT RECORDER [address] [facility] [address], [place] [address] [facility] Start: 09-15-2023 End: 09-15-2023 ambulatory 09/15/2023 10:00 AM EDT Infusion [facility] [address] [phone] [facility] Start: 06-17-2023 End: 06-17-2023 Patient encounter procedure 06/17/2023 11:15 AM EDT Office Visit [facility] [address] [place] [phone] Meaghan King PA-C [address] [place] [address] [facility] Start: 06-10-2023 End: 06-10-2023 ambulatory 06/10/2023 10:30 AM EDT Infusion [facility] [address] [place] [phone] [facility] Start: 04-21-2023 End: 04-21-2023 ambulatory 04/21/2023 10:00 AM EDT Infusion [facility] [address] [phone] [facility] Start: 03-31-2023 End: 03-31-2023 ambulatory 03/31/2023 10:00 AM EST Infusion [facility] [address] [phone] [facility] Start: 02-17-2023 End: 02-17-2023 ambulatory 02/17/2023 11:30 AM EST Infusion [facility] [address] [phone] [facility] Start: 10-11-2022 Influenza vaccination Influenza Vacc ine [facility] Start: 11-23-2021 Depression Screening Depression Scre ening [facility] Start: 2010 Screening for malign ant neoplasm of cervix Pap Smear [facility] Start: 2008 DTaP,Tdap and Td Vaccines (1 - Tdap) DTaP,Tdap and Td Vaccines (1 - Tdap) [facility] Start: 11-11-2007 Adult BMI Follow Up Plan Adult BMI F ollow Up Plan [facility] Bacteria identified in Urine by Culture Urine culture Microbiology Routine Missed menses Ordered: 01/23/2024 [facility] Comment on above: Ordered: 01/23/2024 End: 10-30-2024 Basic metabolic 2000 panel - Serum or Plasma Basic Metabolic Panel Lab Routine Therapeutic drug monitoring Crohn's disease of both small and large intestine with other complication ([facility]) 1 Occurrences starting 10/31/2023 until 10/30/2024 [facility] Comment on above: 1 Occurrences starti ng 10/31/2023 until 10/30/2024 End: 10-30-2024 Calprotectin, F Calprotectin, F Lab Routine Crohn's disease of both small and large intestine with other complication ([facility]) 1 Occurrences starting 10/31/2023 until 10/30/2024 [employer] Work Phone: Comment on above: 1 Occurrences starti ng 10/31/2023 until 10/30/2024 End: 04-22-2025 Calprotectin, F Calprotectin, F Lab Routine Crohn's disease of colon with other complication ([facility]) 1 Occurrences starting 04/22/2024 until 04/22/2025 [employer] Work Phone: Comment on above: 1 Occurrences starti ng 04/22/2024 until 04/22/2025 End: 04-23-2025 Calprotectin, F Calprotectin, F Lab Routine Ulcerative colitis with other complication, unspecified location ([facility]) 1 Occurrences starting 04/23/2024 until 04/23/2025 [employer] Work Phone: Comment on above: 1 Occurrences starti ng 04/23/2024 until 04/23/2025 End: 10-30-2024 CBC panel - Blood by Automated count CBC without diff Lab Routine Therapeutic drug monitoring 1 Occurrences starting 10/31/2023 until 10/30/2024 [employer] Comment on above: 1 Occurrences starti ng 10/31/2023 until 10/30/2024 CBC W Auto Different ial panel - Blood CBC and differential Lab Routine Missed menses , unspecified gestational age Ordered: 01/23/2024 [facility] Comment on above: Ordered: 01/23/2024 End: 04-19-2025 CBC W Auto Differential panel - Blood CBC auto differential Lab Routine Thrombocytopenia ([facility]) 1 Occurrences starting 04/19/2024 until 04/19/2025 [employer] Phone: Comment on above: 1 Occurrences starti ng 04/19/2024 until 04/19/2025 CHLAMYDIA TRACHOMATI S (GENITO/STI) CHLAMYDIA TRACHOMATIS (GENITO/STI) Lab Routine STD exposure Ordered: 03/17/2024 [facility] Comment on above: Ordered: 03/17/2024 Hemoglobin A1c/Hemoglobin.total in Blood Hemoglobin A1c Lab Routine Missed menses , unspecified gestational age Ordered: 01/23/2024 [facility] Comment on above: Ordered: 01/23/2024 Hepatitis B virus surface Ag [Presence] in Serum or Plasma by Immunoassay Hepatitis B surface antigen Lab Routine Missed menses , unspecified gestational age Ordered: 01/23/2024 [facility] Comment on above: Ordered: 01/23/2024 Hepatitis C virus Ab [Presence] in Serum or Plasma by Immunoassay Hepatitis C antibody Lab Routine Missed menses , unspecified gestational age Ordered: 01/23/2024 [facility] Comment on above: Ordered: 01/23/2024 HIV-1/HIV-2 antigen/antibody combination immunoassay HIV-1 and HIV-2 antibodies Lab Routine Missed menses , unspecified gestational age Ordered: 01/23/2024 [facility] Comment on above: Ordered: 01/23/2024 End: 10-30-2024 Liver panel Liver panel Lab Routine Therapeutic drug monitoring Crohn's disease of both small and large intestine with other complication (CMS-HCC) 1 Occurrences starting 10/31/2023 until 10/30/2024 [facility] [employer] Comment on above: 1 Occurrences starti ng 10/31/2023 until 10/30/2024 End: 06-08-2024 Mycobacterium TB by Quantiferon Gold Mycobacterium TB by Quantiferon Gold Lab Routine Crohn's disease of both small and large intestine with intestinal obstruction ([facility]) 1 Occurrences starting 06/09/2023 until 06/08/2024 [employer] Work Phone: Comment on above: 1 Occurrences starti ng 06/09/2023 until 06/08/2024 Neisseria gonorrhoea e DNA [Presence] in Unspecified specimen by ROBERT with probe detection Neisseria gonorrhea DNA probe, direct Lab Routine STD exposure Ordered: 03/17/2024 [facility] Comment on above: Ordered: 03/17/2024 End: 02-07-2023 Oxygen Therapy - Maintain SpO2: 90% or greater; *COMPUTER HARDWARE TECHNICIAN Guidelines for O2: Yes; Document: file://[email or web address].or g/epic/EPIC_Reference/Or ders/Respiratory%20Care% 20Guidelines/CPG%20Oxyge n%[id number].pdf Oxygen Therapy - Maintain SpO2: 90% or greater; *COMPUTER HARDWARE TECHNICIAN Guidelines for O2: Yes; Document: file://[employer].org /epic/EPIC_Reference/Orde rs/Respiratory%20Care%20G uidelines/CPG%20Oxygen%20 2016.pdf Respiratory Care STAT Iron deficiency anemia due to chronic blood loss Iron deficiency anemia, unspecified Iron malabsorption As Needed for 1 Occurrences starting 02/06/2023 until 02/07/2023 [facility] Work Phone: Comment on above: As [...] persistent 1 Occurrences starting 02/20/2023 until 02/21/2024 [employer] Work Phone: Comment on above: 1 Occurrences starti ng 02/20/2023 until 02/21/2024 Reagin Ab [Presence] in Serum by RPR RPR Lab Routine Missed menses , unspecified gestational age Ordered: 01/23/2024 [facility] [email or web address] Comment on above: Ordered: 01/23/2024 Rubella antibody, IgG Rubella an tibody, IgG Lab Routine Missed menses , unspecified gestational age Ordered: 01/23/2024 [employer] Comment on above: Ordered: 01/23/2024 SURESWAB(R) ADVANCED VAGINITIS PLUS, TMA SURESWAB(R) ADVANCED VAGINITIS PLUS, TMA Pathology and Cytology Routine Vaginal discharge Ordered: 03/17/2024 [employer] Work Phone: Comment on above: Ordered: 03/17/2024 End: 02-02-2025 Thiopurine Metabs Thiopurine Metabs Lab Routine Therapeutic drug monitoring 1 Occurrences starting 02/03/2024 until 02/02/2025 [employer] Work Phone: Comment on above: 1 Occurrences starti ng 02/03/2024 until 02/02/2025 End: 10-30-2024 Thiopurine Metabs Thiopurine Metabs Lab Routine Therapeutic drug monitoring 1 Occurrences starting 10/31/2023 until 10/30/2024 [employer] Comment on above: 1 Occurrences starti ng 10/31/2023 until 10/30/2024 End: 10-30-2024 Vitamin D 25 hydroxy Vitamin D 25 hydroxy Lab Routine Crohn's disease of both small and large intestine with other complication ([facility]) 1 Occurrences starting 10/31/2023 until 10/30/2024 [employer] Comment on above: 1 Occurrences starti ng 10/31/2023 until 10/30/2024 End: 04-19-2025 Vitamin D 25 hydroxy Vitamin D 25 hydroxy Lab Routine Crohn's disease with complication, unspecified gastrointestinal tract location ([facility]) 1 Occurrences starting 04/19/2024 until 04/19/2025 [employer] Comment on above: 1 Occurrences starti ng 04/19/2024 until 04/19/2025 Payers Date Payer Category Payer Medicaid [id number] 2022 Medicaid [id number] 2021 Commercial Managed C are - POS [employer] [id number] 2021 Managed Care HMO (unspecified) [employer] [id number] 2021 Private Health Insurance [employer] AETNA POS II [id number] 2021-Present [phone] [address] [place] [address] [id number] [id number] 1989 Unknown [id number] 2.16.840.1.465472.3.579. 2.593 1989 Unknown [id number] 2.16.840.1.706137.3.579. 2.1286 1989 Unknown [id number] 2.16.840.1.711820.3.579. 2.6 1989 Unknown [id number] 2.16.840.1.834086.3.579. 2.6 1989 Unknown [id number] 2.16.840.1.367854.3.579. 2.6 1989 Unknown [id number] 2.16.840.1.232230.3.579. 2.1285 1989 Unknown [id number] 2.16.840.1.703705.3.579. 2.1285 1989 Unknown [id number] 2.16.840.1.772585.3.579. 2.1285 1989 Unknown [id number] 2.16.840.1.703664.3.579. 2.1285 1989 Unknown [id number] 2.16.840.1.465896.3.579. 2.1285 1989 Unknown [id number] 2.16.840.1.708358.3.579. 2.1285 1989 Unknown [id number] 2.16.840.1.565064.3.579. 2.1285 1989 Unknown [id number] 2.16.840.1.957225.3.579. 2.1285 1989 Unknown [id number] 2.16.840.1.745787.3.579. 2.1285 1989 Unknown [id number] 2.16.840.1.970913.3.579. 2.1285 1989 Unknown [id number] 2.16.840.1.387318.3.579. 2.1285 1989 Unknown [id number] 2.16.840.1.573928.3.579. 2.1286 1989 Unknown [id number] 2.16.840.1.879355.3.579. 2.1286 1989 Unknown [id number] 2.16.840.1.077895.3.579. 2.1286 1989 Unknown [id number] 2.16.840.1.271838.3.579. 2.1259 1989 Unknown [id number] 2.16.840.1.140142.3.579. 2.1259 1989 Unknown [id number] 2.16.840.1.065300.3.579. 2.9 1989 Unknown [id number] 2.16.840.1.360504.3.579. 2.9 1989 Unknown [id number] 2.16.840.1.801535.3.579. 2.9 1989 Unknown [id number] 2.16.840.1.333936.3.579. 2.9 1989 Unknown [id number] 2.16.840.1.565066.3.579. 2.9 1989 Unknown [id number] 2.16.840.1.463209.3.579. 2.1286 1989 Unknown [id number] 2.16.840.1.980150.3.579. 2.1286 1989 Unknown [id number] 2.16.840.1.106786.3.579. 2.1286 1989 Unknown [id number] 2.16.840.1.158770.3.579. 2.1286 1959 Private Health Insurance [id number] Social History Date Type Detail Facility Start: 12-27-2021 End: 10-09-2022 Tobacco smoking status SCIS Never smoked tobacco [facility] Start: 12-27-2021 End: 10-09-2022 Tobacco use and exposure Smokeless tobacco non-user [facility] Start: 01-23-2024 End: 03-17-2024 Alcoholic beverage intake Lifetime non-drinker (finding) [facility] Start: 02-29-2020 End: 09-15-2023 History of Social function [facility] Start: 02-29-2020 End: 09-15-2023 Tobacco use panel [facility] Start: 11-19-2023 [facility] Start: 1990 Sex assigned at Female [facility] Start: 09-12-2022 Gender identity Identifies as female gender (finding) [facility] Start: 09-12-2022 Sexual orientation Heterosexual (finding) [facility] Start: 01-31-2024 End: 05-06-2024 Alcoholic beverage intake Current non-drinker of alcohol (finding) [facility] Adolescent depressio n screening assessment 15 [facility] Start: 1990 Sex assigned at Not on file [facility] Start: 09-13-2014 Sex Female (finding) [facility] Goals Date Patient Goal Desired Activity /State Personal health goal Comment on above: Formatting of this n ote might be different from the original. Evaluation of progress towards goal: patient to discharge to home. Clinical Notes 02-06-2023 to 05-06-2024 Assessment & Plan Note - Raulito Jimenez DO - 05/06/2024 1:03 PM EDTAssessment & Plan Note - Raulito Jimenez DO - 05/06/2024 1:03 PM Jules Jimenez DO - 05/06/2024 9:30 AM EDT Note [...] a result of low hemoglobin levels during [facility] 05-06-2024 Miscellaneous Notes Associated Problem(s): Anemia affecting [...] seek medical care. documented in this encounter [facility] 05-06-2024 Evaluation + Plan note Associated Problem(s): [...] or chest pain to seek medical care. [facility] 05-06-2024 History of Present illness Narrative Images from the original note were not included. [facility] [address] [place] [address] [place] [address] Patient: Juan Luis Storey Date of : 1990 Encounter Date: 05/06/2024 Subjective: Chief Complaint Chief Complaint Patient presents with Er Follow-up History of Present Illness Juan Luis Storey is a 33 y.o. female, established patient, that presents to the office for ER follow up for elevated blood pressure in patient Hypertension Chronicity: Seen at [facility] on 05/04/24 for shortness of breath, palpitations [...] obstruction (CMS-HCC) 10/17/2017 Chronic diarrhea Colon stricture ([facility]-HCC) 04/02/2018 Crohn's colitis ([facility]-HCC) Crohn's disease ([facility]-HCC) Crohn's disease of both small and large intestine with intestinal obstruction ([facility]-HCC) 03/03/2018 Current chronic use of systemic steroids 03/03/2018 Depression Diarrhea 10/17/2017 Added automatically from request for surgery [id number] Difficulty sleeping 01/13/2019 Gall stones History of [...] 10/21/2017 Performed by Sharda Montiel MD at [facility] COLONOSCOPY w/ Bx's & polypectomy N/A 10/08/2021 Performed by Sharad Montiel MD at [facility] ENDOSCOPY EGD N/A 04/02/2018 Performed by Darshana Rae MD at [facility] LAPAROSCOPIC ILEOCECECTOMY, TAKE DOWN OF ILEODUDENAL FISTULA, DRAINAGE OF RETROPERITONEAL ABSCESS, OMENTAL PEDICLE FLAP N/A 04/02/2018 Performed by Jonathan Bautista MD at [facility] Family History Problem Relation Age of [...] 05/06/24 1:03 PM documented in this encounter [employer] 05-06-2024 Instructions Raulito Jimenez DO - 05/06/2024 [...] sent through Care Everywhere.High blood pressure and (Barbadian)documented in this encounter [employer] 04-26-2024 History of Present illness Narrative Reason [...] (FOLVITE) 1,000 mcg, Oral, Every morning HYDROcodone-acetaminophen ([place]) 5-325 MG tablet 1 tablet, Oral, Every [...] nursing note reviewed. Exam conducted with a modeling analyst present. Vitals: Estimated body mass index is [...] disease with complication, unspecified gastrointestinal tract location ([facility]) K50.919 Return OB: Patient presents [...] She does report she has spoken to [facility] but does not yet have a scheduled appointment but will reach back out to them to schedule related to non visualized stomach during anatomy scan. Documented by Kimi Simmons NP on behalf of: Parish Valdez DO documented in this encounter [facility] 04-19-2024 Miscellaneous Notes Biologic team, please [...] OV note and fax it to her tool room attendant, Dr. Parish Valdez DO at [facility]. Thank you. Faxed to [phone] Zymfentra 120mg/ml PA was sent to plan via [facility] Schneider number: [id number] documented in this encounter [facility] 04-19-2024 Telephone encounter Note Biologic team, please [...] OV note and fax it to her tool room attendant, Dr. Parish Valdez DO at [facility]. Thank you. [facility] 04-19-2024 Telephone encounter Note Faxed to [phone] [facility] 04-19-2024 Telephone encounter Note Zymfentra 120mg/ml PA was sent to plan via [facility] Schneider number: [id number] [facility] 04-19-2024 History of Present illness Narrative Infusion start time: 11:10 am Patient here for her Avsola infusion. Patient denies any recent infections or on antibiotics, open wounds, recent/future surgery, vaccinations or insurance changes. 10:50 am IV started with 22g needle to left AC by JAD Arroyo x1 attempt. Patient tolerated well. Avsola x 4 vials Lot# [id number] Exp- 09/10/2027 Time out performed prior to medication administration. Name, , medication(s) verified 1310 patient infusion complete. IV flushed with normal saline. 1313 IV discontinued, catheter intact, vitals WNL. Patient tolerated infusion well documented in this encounter [facility] 04-19-2024 History of Present illness Narrative [facility] Follow Up [...] obstruction (CMS-HCC) 10/17/2017 Chronic diarrhea Colon stricture ([facility]-HCC) 04/02/2018 Crohn's colitis ([facility]) Crohn's disease ([facility]-HCC) Crohn's disease of both small and large intestine with intestinal obstruction ([facility]-HCC) 03/03/2018 Current chronic use of systemic steroids 03/03/2018 Depression Diarrhea 10/17/2017 Added automatically from request for surgery [id number] Difficulty sleeping 01/13/2019 Gall stones History of [...] 10/21/2017 Performed by Sharda Montiel MD at [facility] COLONOSCOPY w/ Bx's & polypectomy N/A 10/08/2021 Performed by Sharda Montiel MD at [facility] ENDOSCOPY EGD N/A 04/02/2018 Performed by Darshana Rae MD at [facility] LAPAROSCOPIC ILEOCECECTOMY, TAKE DOWN OF ILEODUDENAL FISTULA, DRAINAGE OF RETROPERITONEAL ABSCESS, OMENTAL PEDICLE FLAP N/A 04/02/2018 Performed by Jonathan Bautista MD at [facility] SOCIAL HISTORY: Social History Tobacco Use [...] VITAMIN B12: Lab Results Component Value Date [id number] 239 01/26/2024 FOLATE: Lab Results Component Value [...] a hysterectomy has been advised by her android programmer, but that she was not ready to proceed. 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 [address] units q.week x8 and then back to [...] findings of the ongoing PIANO study, The [place] Consensus Statements for the Management of Inflammatory Bowel Disease in , and the clinical care pathway released by the AGA. - AGA clinical practice update on -related gastrointestinal and liver disease: expert review (Gastroenterology. 2023;167(5):3527-6897). - Johnathan Farr, Rey Johnson, Ama Aguilar, et al. Inflammatory bowel disease in clinical care pathway: a report from the [place] gastroenterological association [employer] parenthood project working group. Gastroenterology. 2019;156(5):9983-7359. - Johnathan U, Yady RA, Lobito CD. Drug Safety and [...] and strongly recommended annual f/u with a sleeve maker and regular use of skin protection -- [...] Referring and communicating with other health career and guidance counselor (not separately reported) Documenting clinical information in [...] understanding. Camila Montiel MD, MPH [facility] [address] [address] PH: [phone] Juan Luis was seen today for follow-up. Diagnoses and all orders for this visit: Thrombocytopenia (CMS-HCC) - CBC auto differential; Future Crohn's disease with complication, unspecified gastrointestinal tract location ([facility]) - Vitamin D 25 hydroxy; Future - Vitamin B12; Future documented in this encounter [facility] 04-19-2024 Instructions Sharda Montiel MD - 04/19/2024 10:00 AM EDT Labs - from today, 02/02/25, and 01/27/25 I recommend hepatitis A vaccines with your PCP, the health department, or any pharmacy; this is typically a series of 2 injections 3. supervisor in circuit testing high dose vitamin D from the pharmacy Preventative Health Maintenance for Crohn's and ulcerative colitis -- Skin cancer prevention: I recommend annual follow up with a sleeve maker and regular use of skin protection given the increased risk of skin cancer, especially in patients on immunomodulator (Imuran / azathioprine / 6MP) or biologic medications (Remicade, Humira, Enyvio) -- Cervical cancer prevention: I recommend annual follow up with your tool room attendant doctor with annual pap smears -- Tobacco [...] would be interested in meeting with a senior risk analyst please let me or your family doctor [...] the role of diet in IBD: [email or web address] rg/client_[email or web address].cfm?[facility]_client_ed_id =[email or web address] documented in this encounter [facility] 04-14-2024 History of Present illness Narrative Reason [...] nursing note reviewed. Exam conducted with a modeling analyst present. Vitals: Estimated body mass index is [...] Parish Valdez DO documented in this encounter [facility] 03-17-2024 History of Present illness Narrative [...] obtained without difficulty and patient was given [facility] order to have obtained. Orders Placed This Encounter Procedures US OB 14+ weeks anatomy scan CHLAMYDIA TRACHOMATIS (GENITO/STI) Neisseria gonorrhea DNA probe, direct Alpha fetoprotein, maternal Follow Up: Patient is to return to our office in 4 weeks for routine OB appointment Documented by SIMI Frazier on behalf of: SIMI Frazier documented in this encounter [facility] 03-08-2024 History of Present illness Narrative Infusion start time: 1040 Patient here for Avsola infusion. Patient denies any recent infections or on antibiotics, open wounds, recent/future surgery, vaccinations or insurance changes. IV started with 22g needle to left forearm by Yaquelin Barba RN x1 attempt. Patient tolerated well. Avsola Lot# [id number] 2vials Exp- 09/10/2027 Lot#[id number] 2 vials Exp08/10/2027 Time out performed prior to medication administration. Name, , medication(s) verified 10:40 am Time out performed with Yaquelin STREET. Avsola to be mixed and administered to patient per current treatment plan orders 1240 patient infusion complete. IV flushed with 10 ml normal saline. IV discontinued, catheter intact, vitals WNL. Patient tolerated infusion well documented in this encounter [facility] 02-18-2024 History of Present illness [...] nursing note reviewed. Exam conducted with a modeling analyst present. Vitals: Estimated body mass index is [...] or undercooked meat, and stay away from [facility]. Patient has been consulted regarding [...] Parish Valdez DO documented in this encounter [facility] 01-23-2024 History of Present illness Narrative [...] or undercooked meat, and stay away from [facility]. Patient has also been advised [...] Veronica Klein LPN documented in this encounter [facility] 12-17-[address] Montiel, Patient called stating she took a urine test this past Friday and it was positive. She receives Inflectra 400 mg every 6 weeks for her Crohn's. She also takes Imuran 150 mg po daily. Juan Luis is inquiring if she can continue taking [...] send a letter to the family doctor/PCP, Turbo Operator, and handbell choir director advising against the use of live vaccines for the 1st 6 months of the baby's life and to monitor the baby closely for any signs of infection. Please send her the following as well: [email or web address].crohnscolitisfoundati on.org/blog/hnake-gpogx-hcltda-ho yv-cmi-saikpxq-pf-nxixrxjkqvb-ytw -iknecrt-ect-bswy I recommend an OV w me in 02/2024 or 03/2024 Please disregard notes below. Summary These recommendations are in accordance with the findings of the ongoing PIANO study, The [place] Consensus Statements for the Management of Inflammatory [...] clinical care pathway: a report from the [place] gastroenterological association ibd parenthood project working group. Gastroenterology. 2019;156(5):9598-9331. Spoke with patient regarding recommendations, sent via [employer]. Will call patient back when March schedule is out, she needs Mondays. [facility] Montiel, Patient called stating she took a urine test this past Friday and it was positive. She receives Inflectra 400 mg every 6 weeks for her Crohn's. She also takes Imuran 150 mg po daily. Juan Luis is inquiring if she can continue taking her Imuran and Inflectra infusions? Please advise, thank you [facility]17[facility]23 Telephone encounter Note Please let her [...] send a letter to the family doctor/PCP, Turbo Operator, and handbell choir director advising against the use of live vaccines for the 1st 6 months of the baby's life and to monitor the baby closely for any signs of infection. Please send her the following as well: https://www.crohnscolitisfoundati on.org/blog/iukul-dqdxo-yetthg-ho nb-qkr-obxweof-vs-omjgevuybnx-eqi -tvvnhit-zzi-pbvz I recommend an OV w me in 02/2024 or 03/2024 Please disregard notes below. Summary These recommendations are in accordance with the findings of the ongoing PIANO study, The [place] Consensus Statements for the Management of Inflammatory Bowel Disease in , and the clinical care pathway released by the AGA. - Johnathan Farr, Yady BROWN, Lobito CD. Drug Safety and Risk of Adverse Outcomes for Patients With Inflammatory Bowel Disease. Gastroenterology. 2017;152(2):451-462.e2. - Gastroenterology. 2016 Mar;150[3]:734-57 - Johnathan Farr, Rey C, Sherylo N, et al. Inflammatory bowel disease in clinical care pathway: a report from the [place] gastroenterological association ibd parenthood project working group. Gastroenterology. 2019;156(5):0792-3707. [facility] [employer] 12-17-2023 Telephone encounter Note Spoke with patient regarding recommendations, sent via [employer]. Will call patient back when March schedule is out, she needs Mondays. [facility] [employer] 12-12-2023 History of Present illness Narrative Infusion start time: 10:50 am Patient here for Inflectra infusion. Patient denies any recent infections or on antibiotics, open wounds, recent/future surgery, vaccinations or insurance changes. 10:30 am IV started with 22g needle to right hand by JAD Arroyo x1 attempt. Patient tolerated well. Inflectra x 4 vials Lot# [id number] Exp- 04/09/2028 Time out performed prior to medication administration. Name, , medication(s) verified 11:50 am patient infusion complete. IV flushed with 10 ml normal saline. IV discontinued, catheter intact, vitals WNL. Patient tolerated infusion well documented in this encounter [employer] 12-01-2023 History of Present illness Narrative Images from the original note were not included. [facility] [address] [place] [phone] 12/01/2023 Chief Complaint Patient presents with [...] small and large intestine with intestinal obstruction ([facility]-HCC) Other Visit Diagnoses Iron deficiency - [...] Referring and communicating with other health career and guidance counselor (not separately reported) Documenting clinical information in the electronic or other health record Independently interpreting results (not separately reported) and communicating results to the patient/family/caregiver Care coordination (not separately reported) ---- Please note that portions of this note may have been generated using voice recognition [email or web address] dictation software. Although every effort was made to ensure the accuracy of any automated transcriptions, some errors may have occurred. TERA Carbajal 12/01/23 1502 [facility] Instructions TERA Carbajal - 12/01/2023 2:30 PM EDT Pending labs If iron is low, will order Injectafer IV If iron is low, will repeat labs in 3 months CBC-d iron panel ferritin If iron is normal, just follow up yearly as below Follow up yearly with labs same as above [facility] History of Present illness Narrative IV Infusion start time: 944. Patient here for Inflectra infusion. Patient denies any recent infections or on antibiotics, open wounds, recent/future surgery, vaccinations or insurance changes. IV started with 22g needle to left hand by JAD Arroyo x1 attempt. Patient tolerated well. Inflectra x 4 vials Lot# [id number] Exp- [id number] Time out performed prior to medication administration. Name, , medication(s) verified 11:13 am patient infusion complete. IV discontinued, catheter intact, vitals WNL. Patient tolerated infusion well documented in this encounter [facility] 10-31-2023 History of Present illness Narrative [facility] Follow Up Visit CHIEF COMPLAINT: Chief Complaint [...] obstruction (CMS-HCC) 10/17/2017 Chronic diarrhea Colon stricture ([facility]-HCC) 04/02/2018 Crohn's colitis (CMS-HCC) Crohn's disease ([facility]-HCC) Crohn's disease of both small and large intestine with intestinal obstruction ([facility]-HCC) 03/03/2018 Current chronic use of systemic steroids 03/03/2018 Depression Diarrhea 10/17/2017 Added automatically from request for surgery [id number] Difficulty sleeping 01/13/2019 Gall stones History of [...] 10/21/2017 Performed by Sharda Montiel MD at [facility] COLONOSCOPY w/ Bx's & polypectomy N/A 10/08/2021 Performed by Sharda Montiel MD at [facility] ENDOSCOPY EGD N/A 04/02/2018 Performed by Darshana Rae MD at [facility] LAPAROSCOPIC ILEOCECECTOMY, TAKE DOWN OF ILEODUDENAL FISTULA, DRAINAGE OF RETROPERITONEAL ABSCESS, OMENTAL PEDICLE FLAP N/A 04/02/2018 Performed by Jonathan Bautista MD at [facility] SOCIAL HISTORY: Social History Tobacco Use [...] VITAMIN B12: Lab Results Component Value Date [id number] 1,378 (H) 08/02/2021 FOLATE: Lab Results Component [...] a hysterectomy has been advised by her android programmer, but that she was not ready to proceed. 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 [address] units q.week x8 and then back to [...] folic acid. Patient Care Team: Hilary Aviles APRN-PIT RECORDER as PCP - General (Family Medicine) Jonathan [...] and strongly recommended annual f/u with a sleeve maker and regular use of skin protection -- [...] Referring and communicating with other health career and guidance counselor (not separately reported) Documenting clinical information in [...] for your understanding. Camila Montiel MD, MPH [facility] [address] [address] PH: [phone] Juan Luis was seen today for follow-up. [...] in the morning. documented in this encounter [facility] 10-31-2023 Instructions Sharda Montiel MD - [...] I recommend annual follow up with a sleeve maker and regular use of skin protection given the increased risk of skin cancer, especially in patients on immunomodulator (Imuran / azathioprine / 6MP) or biologic medications (Remicade, Humira, Enyvio) -- Cervical cancer prevention: I recommend annual follow up with your tool room attendant doctor with annual pap smears -- Tobacco [...] would be interested in meeting with a senior risk analyst please let me or your family doctor [...] the role of diet in IBD: [email or web address].nutritioncaremanual.o rg/client_ed.cfm?[facility]_client_ed_id =[email or web address] documented in this encounter [facility] 09-17-2023 History of Present illness Narrative Subjective [...] regarding her care. She is currently at [facility]. She is in a vegetative [...] of major depressive disorder without prior episode ([facility]) - citalopram (CeleXA) 20 mg tablet; Take 1.5 tablets (30 mg total) by mouth in the morning. Crohn's disease of both small and large intestine with intestinal obstruction ([facility]) TERA Church 09/17/23 8602 documented in this encounter [employer] 09-15-2023 Miscellaneous Notes Refill infusion orders received; approved for now. Must make 10/31/23 OV or can no longer receive infusions here until she is seen. Tried to call patient, busy signal. Sent MyChart message. Patient called. Updated. She verbalized understanding Thank You documented in this encounter [facility] 09-15-2023 Telephone encounter Note Refill infusion orders received; approved for now. Must make 10/31/23 OV or can no longer receive infusions here until she is seen. [facility] 09-15-2023 Telephone encounter Note Tried to call patient, busy signal. Sent MyChart message. [facility] 09-15-2023 Telephone encounter Note Patient called. Updated. She verbalized understanding Thank You [facility] 09-15-2023 History of Present illness Narrative IV Infusion start time: 10:30 am Patient here for Inflectra infusion. Patient denies any recent infections or on antibiotics, open wounds, recent/future surgery, vaccinations or insurance changes. IV started with 22g needle to right AC by JAD Arroyo x1 attempt. Patient tolerated well. Inflectra x 4 vials Lot# [id number] Exp- [id number] Time out performed prior to medication administration. Name, , medication(s) verified 12:10 pm patient infusion complete. IV discontinued, catheter intact, vitals WNL. Patient tolerated infusion well documented in this encounter [facility] 09-03-2023 Miscellaneous Notes Patient presented to front services agent window and paid for FMLA today. FMLA faxed. documented in this encounter [facility] 09-03-2023 Telephone encounter Note Patient presented to front services agent window and paid for FMLA today. FMLA faxed. [facility] 09-03-2023 History of Present illness Narrative Video Visit via Real-time Synchron[employer] Audi[employer]ual Provider Location: [facility] [address] [place] [phone] Patient Location: Patient's home Video Visit Consent [...] that there are some limitations compared to ivay-qm-mcaz evaluations. The patient consented to the presence [...] [facility] 09/03/23 1308 documented in this encounter [facility] 08-20-2023 History of Present illness Narrative Subjective [...] [facility] 08/20/23 1530 documented in this encounter [facility] 08-04-2023 History of Present illness Narrative IV Infusion start time: 1318. Patient here for Inflectra infusion. Patient denies any recent infections or on antibiotics, open wounds, recent/future surgery, vaccinations or insurance changes. IV started with 22g needle to left AC by JAD Arroyo x1 attempt. Patient tolerated well. Inflectra x 4 vials Lot# [id number] Exp- [id number] Time out performed prior to medication administration. [...] of info given. documented in this encounter [facility] 06-18-2023 Miscellaneous Notes Patient has missed the following appointments: 06/17/23 06/10/23 04/14/23 06/17/22 11/10/20 See other note for follow up documented in this encounter [facility] 06-18-2023 Telephone encounter Note Patient has missed the following appointments: 06/17/23 06/10/23 04/14/23 06/17/22 11/10/20 [facility] 06-18-2023 Telephone encounter Note See other note for follow up [facility] 06-10-2023 Miscellaneous Notes SANIYA Cheatham [...] 06/10/23). No show policy letter sent via [employer] and certified mail. documented in this encounter [facility] 06-10-2023 Telephone encounter Note SANIYA Cheatham and Dr. Montiel, Patient was scheduled today for her Inflectra infusion; was a NO SHOW. She also no showed 04/14/23 Call placed to patient with no answer. Message left for patient to call office back in regards to rescheduling her infusion. [facility] 06-10-2023 Telephone encounter Note Reviewing the chart it appears she has had multiple no shows even prior to this. Please send no-show / late cancellation fee notice and remind her of the no-show policy and that we are tracking this information. If she no-shows again, she may be discharged from the practice per office policy. Thank you. [facility] 06-10-2023 Telephone encounter Note Patient called and rescheduled 06/18/23 [facility] 06-10-2023 Telephone encounter Note Chaparrita, Patient NO SHOWED for her OV yesterday and did not come to her rescheduled infusion today (she NO SHOWED 06/10/23). [facility] 06-10-2023 Telephone encounter Note No show policy letter sent via [employer] and certified mail. [facility] 04-21-2023 Miscellaneous Notes Due for [...] at 10:30 am documented in this encounter [facility] 04-21-2023 Telephone encounter Note Due for OV [facility] 04-21-2023 Telephone encounter Note There is nothing available for a recheck OV , can we use a new patient slot? [facility] 04-21-2023 Telephone encounter Note Yes that's ok [facility] 04-21-2023 Telephone encounter Note Left message for patient to call and schedule. [facility] 04-21-2023 Telephone encounter Note Message left for patient to call back. [facility] 04-21-2023 Telephone encounter Note Patient is scheduled with Meaghan on June 16 at 11:15 am. Infusion is scheduled on June 09 at 10:30 am [facility] 04-21-2023 History of Present illness Narrative 1020 am Patient here for Inflectra infusion. Patient denies any recent infections, open wounds, recent/future surgery, or insurance changes . IV started with 22g needle to right hand by raf street x 1 attempt. Patient tolerated well. Inflectra x 4 vials Lot #[id number] Exp date 12/11/2027 Time out performed with Raf Delatorre RN. 400 mg of Inflectra to be mixed and administered to patient per current treatment plan orders. 1305 patient infusion complete. IV discontinued, catheter intact, vitals WNL. Patient tolerated infusion well documented in this encounter [facility] 04-14-2023 Miscellaneous Notes Patient missed the visit. RN called patient and RN rescheduled patient for 04/21/2023. documented in this encounter [facility] 04-14-2023 Telephone encounter Note Patient missed the visit. RN called patient and RN rescheduled patient for 04/21/2023. [facility] 03-31-2023 Miscellaneous Notes RN was told that patient is calling regarding her insurance. The phone call was then transferred back to the infusion room. Patient states she lost her secondary insurance and wanted to know to what the amount she will be responsible for. RN informed patient to call her insurance company to find out that information. documented in this encounter [facility] 03-31-2023 Telephone encounter Note RN was told that patient is calling regarding her insurance. The phone call was then transferred back to the infusion room. Patient states she lost her secondary insurance and wanted to know to what the amount she will be responsible for. RN informed patient to call her insurance company to find out that information. [facility] 02-20-2023 History of Present illness Narrative Images from the original note were not included. [address] [place] [id number] Patient: Juan Luis Storey Date of [...] morning. LYNDSEY ANDERS MD Family Medicine Physician [facility] / [facility] 02/20/23 This note was completed with voice recognition software. The document was reviewed for errors however some may still be present. Please do not hesitate to contact/[facility] the author to verify any questions/concerns. documented in this encounter [facility] [facility] 02-17-2023 History of Present illness Narrative 1145 Patient here for Inflectra infusion. Patient denies any recent infections, open wounds, recent/future surgery, or insurance changes . Site cleansed with alcohol. IV started with 22g needle by Yaquelin Barba RN in right hand. Patient tolerated well. Lot # [id number] Exp 07/11/27 1422 patient infusion complete. IV discontinued at 1422. Patient tolerated infusion well. documented in this encounter [facility] 02-06-2023 History of Present illness [...] in stable condition. documented in this encounter [facility] Evaluation note Diagnosis Missed menses , unspecified gestational age Encounter for supervision of normal first in first trimester headache in first trimester documented in this encounter [facility]* Diagnosis Therapeutic drug monitoring- Primary Encounter for therapeutic drug monitoring [facility] Diagnosis Second trimester state, incidental 15 weeks gestation of H/O oligohydramnios in prior , currently documented in this encounter [facility] Healthcare[facility] note* Diagnosis Crohn's disease of both small and large intestine with intestinal obstruction (CMS-HCC)- Primary documented in [facility]* Diagnosis Second trimester state, incidental 19 weeks gestation of Vaginal discharge Leukorrhea, not specified as infective STD exposure Screening, , for anatomic survey Encounter for anatomic survey documented in this encounter [facility] HealthcareEvaluation note* Diagnosis 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 deficiency anemia, unspecified Iron malabsorption Other specified intestinal malabsorption documented in this encounter [facility]* Diagnosis Crohn's disease of both small and large intestine with intestinal obstruction (CMS-HCC)- Primary documented in this encounter [facility]* Diagnosis Crohn's disease of both small and large intestine with intestinal obstruction (CMS-HCC)- Primary documented in this encounter [facility]* Diagnosis Reactive airway disease with acute exacerbation, unspecified asthma severity, unspecified whether persistent- Primary Shortness of breath COVID-19 Sinusitis, unspecified chronicity, unspecified location documented in this encounter [facility]* Diagnosis Crohn's disease of both small and large intestine with intestinal obstruction (CMS-HCC)- Primary documented in this encounter [facility]* Diagnosis Anxiety- Primary Anxiety state, unspecified documented in this encounter [facility]* Diagnosis Crohn's disease of both small and large intestine with intestinal obstruction (CMS-HCC)- Primary documented in this encounter [facility]* Diagnosis Reactive depression- Primary documented in this encounter [facility]* Diagnosis Crohn's disease of both small and large intestine with intestinal obstruction (CMS-HCC)- Primary documented in this encounter [facility]* Diagnosis Current moderate episode of major depressive disorder without prior episode (CMS-HCC)- Primary Crohn's disease of both small and large intestine with intestinal obstruction (CMS-HCC) documented in this encounter [facility]* Diagnosis Therapeutic drug monitoring- Primary Encounter for therapeutic drug monitoring Crohn's disease of both small and large intestine with other complication (CMS-HCC) documented in this encounter [facility]* Diagnosis Crohn's disease of both small and large intestine with intestinal obstruction (CMS-HCC)- Primary documented in this encounter [facility]* Diagnosis Iron deficiency- Primary [...] deficiency anemia, unspecified documented in this encounter [facility]* Diagnosis Crohn's disease of both small and large intestine with intestinal obstruction (CMS-HCC)- Primary [facility] Diagnosis 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 Other specified intestinal malabsorption Iron deficiency anemia, unspecified [facility] Diagnosis Diabetes mellitus screening Screening for diabetes mellitus Second trimester state, incidental 23 weeks gestation of documented in this encounter [facility]* Diagnosis Thrombocytopenia (CMS-HCC)- Primary Unspecified thrombocytopenia Crohn's disease with complication, unspecified gastrointestinal tract location (CMS-HCC) [facility] Diagnosis Crohn's disease of colon with other complication (CMS-HCC)- Primary [facility] Diagnosis Ulcerative colitis with other complication, unspecified location (CMS-HCC)- Primary [facility] Diagnosis Second trimester state, incidental 23 weeks gestation of Crohn's disease with complication, unspecified gastrointestinal tract location (CMS/HCC) documented [facility] encounter [facility]* Diagnosis HTN complicating peripregnancy, antepartum, [...] Care Everywhere. * Anxiety Discharge Instructions, Adult (Barb[place]) [facility]ructionsNot on file documented in [facility] encounterPro[facility] SystemInstructionsNot on file documented in this encounterProMedica [facility] SystemInstructionsNot on file documented in this encounterPro[facility] SystemInstructions* Attachments The following attachments cannot be sent through Care Everywhere. * Depression ([place]) documented in [facility] encounterPro[facility] SystemInstructionsNot on file documented in this encounterPro[facility]ica [facility] SystemInstructionsNot on file [facility] Purpose Family History No [...] section and content) DATE CREATED AUTHOR 08/05/2017 [facility] DATE CREATED AUTHOR AUTHOR'S ORGANIZ ATION 06/26/2022 [facility] DATE CREATED AUTHOR AUTHOR'S ORGANIZ ATION 02/03/2024 [facility] DATE CREATED AUTHOR AUTHOR'S ORGANIZ ATION 04/25/2024 [facility] DATE CREATED AUTHOR AUTHOR'S ORGANIZ ATION 04/27/2024 [facility] DATE CREATED AUTHOR AUTHOR'S ORGANIZ ATION 05/07/2024 [facility] Reason for Visit [...] BIOSIMILAR, (AVSOLA), 10 MG INFUSION Hilary Aviles APRN-PIT RECORDER [address], [place] [address] Phone: tel: fax: [facility] [address] [address] Phone: tel: fax: Referral ID Status Reason Start Date Expiration Date V isits Requested Visits Authorized [id number] Authorized 01/20/2024 01/18/2025 9 9 Reason Comments Outpatient Infusion Injectafer Specialty Diagnoses / Procedures Referred By Contac t Referred To Contact Diagnoses Iron deficiency anemia due to chronic blood loss Iron deficiency anemia, unspecified Iron malabsorption Procedures NM INJ FERRIC CARBOXYMALTOS 1MG Mj Pizarro MD [address] [place] [address] [address] [place] [id number] [facility] [address] [place] [phone] Referral ID Status Reason Start Date Expiration Date V isits Requested Visits Authorized [id number] Authorized 01/24/2023 07/23/2023 2 2 Reason Comments Outpatient Infusion Inflectra Specialty Diagnoses / Procedures Referred By Contac t Referred To Contact Gastroenterology Diagnoses Crohn's disease of both small and large intestine with intestinal obstruction Inflectra 5mg/kg every 6 weeks, Auth'd for 9 visits 6.16.23-6.15.24, SA/Crohns Procedures NM INFLIXIMAB INJECTION INFUSION Hilary Aviles APRN-PIT RECORDER [address], [place] [address] [facility] [address] [place] [phone] Referral ID Status Reason Start Date Expiration Date V isits Requested Visits Authorized [id number] Pending Review 07/26/2022 07/26/2023 9 9 Reason Comments Asthma Reason Comments Outpatient Infusion inflectra Specialty Diagnoses / Procedures Referred By Contac t Referred To Contact Gastroenterology Diagnoses Crohn's disease of both small and large intestine with intestinal obstruction Procedures NM INFLIXIMAB INJECTION Referral ID Status Reason Start Date Expiration Date V isits Requested Visits Authorized [id number] Authorized 04/01/2023 04/01/2024 9 9 Reason Comments Mental Health Problem Reason Comments FMLA Reason Comments Anxiety Depression Reason Comments Follow-up Patient is here for a follow up and denies any issues. Reason Comments Follow-up Specialty Diagnoses / Procedures Referred By Contac t Referred To Contact Gastroenterology Diagnoses Crohn's disease of both small and large intestine with intestinal obstruction Procedures NM INFLIXIMAB INJECTION Reason Comments Outpatient Infusion Specialty Diagnoses / Procedures Referred By Contac t Referred To Contact Gastroenterology Diagnoses Crohn's disease of both small and large intestine with intestinal obstruction [place] 5mg/kg (400mg) every 6 weeks/ Auth'd 01.20.24 - 01.18.25/ visits/ [id number] Dr. Montiel NO ACCELERATED INFUSION Procedures INJECTION, INFLIXIMAB-AXXQ, BIOSIMILAR, (AVSOLA), 10 MG INFUSION Hilary Aviles APRN-CNP [address] [facility] [address], [place] [address] Phone: tel: fax: [facility] [address] [phone] Phone: tel: fax: Reason Comments Er Follow-up Care Teams (unrecognized sec tion and content) Ostomy Nurse Relationship Specialty Start Date End Date Hilary Aviles MD [address] [place] [address] Referring Physician Nurse Practitioner 10/08/22 Ostomy Nurse Relationship Specialty Start Date End Date Hilary Aviles APRN-CNP [address], [place] [facility] [place] [address] PCP - General Family Medicine 01/03/24 Ostomy Nurse Relationship Specialty Start Date End Date Hilary Aviles MD [address] [place] [address] [place] [address] Referring Physician Nurse Practitioner 10/08/22 Ostomy Nurse Relationship Specialty Start Date End Date Hilary Aviles MD [address] [place] [address] [place] [address] Referring Physician Nurse Practitioner 10/08/22 Ostomy Nurse Relationship Specialty Start Date End Date Hilary Aviles MD [address] [place] [address] [place] [address] Referring Physician Nurse Practitioner 10/08/22 Ostomy Nurse Relationship Specialty Start Date End Date Hilary Aviles APRN-PIT RECORDER [address], [facility] [place] [address] PCP - General Family Medicine 01/03/24 Ostomy Nurse Relationship Specialty Start Date End Date Hilary Aviles MD [address] [place] [address] [place] [address] Referring Physician Nurse Practitioner 10/08/22 Ostomy Nurse Relationship Specialty Start Date End Date Hilary Aviles MD [address] [facility] [place] [address] Referring Physician Nurse Practitioner 10/08/22 Ostomy Nurse Relationship Specialty Start Date End Date Hilary Aviles MD [address] [facility] [place] [address] Referring Physician Nurse Practitioner 10/08/22 Ostomy Nurse Relationship Specialty Start Date End Date [facility] [address], [place] [address] PCP - General Family Medicine 12/26/22 Ostomy Nurse Relationship Specialty Start Date End Date Hil[facility] [address], [place] [address] PCP - General Family Medicine 12/26/22 Ostomy Nurse Relationship Specialty Start Date End Date Hilary [facility] [address], [place] [address] PCP - General Family Medicine 12/26/22 Ostomy Nurse Relationship Specialty Start Date End Date Hilary [facility] [address], [place] [address] PCP - General Family Medicine 12/26/22 Ostomy Nurse Relationship Specialty Start Date End Date Hilary [facility] [address], [place] [address] PCP - General Family Medicine 12/26/22 Ostomy Nurse Relationship Specialty Start Date End Date Hil[facility] [address], [place] [address] PCP - General Family Medicine 12/26/22 Ostomy Nurse Relationship Specialty Start Date End Date Hilary Aviles APR[facility] [address], [place] [address] PCP - General Family Medicine 12/26/22 Ostomy Nurse Relationship Specialty Start Date End Date Hilary [facility]iles [facility] [address], [place] [address] PCP - General Family Medicine 12/26/22 Ostomy Nurse Relationship Specialty Start Date End Date Hilary Aviles APR[facility] [address], [place] [address] PCP - General Family Medicine 12/26/22 Ostomy Nurse Relationship Specialty Start Date End Date Hilary Aviles APR[facility] [address], [place] [address] PCP - General Family Medicine 12/26/22 Ostomy Nurse Relationship Specialty Start Date End Date Hilary Aviles APR[facility] [address], [place] [address] PCP - General Family Medicine 12/26/22 Ostomy Nurse Relationship Specialty Start Date End Date Hilary Aviles APRN-PIT RECORDER [address], [place] [address] PCP - General Family Medicine 12/26/22 Ostomy Nurse Relationship Specialty Start Date End Date Hilary Aviles APRN-PIT RECORDER [address], [place] [address] PCP - General Family Medicine 12/26/22 Ostomy Nurse Relationship Specialty Start Date End Date Hilary [facility] [address], [place] [address] PCP - General Family Medicine 12/26/22 Ostomy Nurse Relationship Specialty Start Date End Date Hilary Aviles [facility] [address], [place] [address] PCP - General Family Medicine 01/03/24 Ostomy Nurse Relationship Specialty Start Date End Date Hilary [facility]iles [facility] [address], [place] [address] PCP - General Family Medicine 01/03/24 Ostomy Nurse Relationship Specialty Start Date End Date Hilary Aviles MD [address] [place] [address] [place] [address] Referring Physician Nurse Practitioner 10/08/22 Ostomy Nurse Relationship Specialty Start Date End Date Hilary Aviles [facility] [address], [place] [address] PCP - General Family Medicine 01/03/24 Ostomy Nurse Relationship Specialty Start Date End Date Hilary [facility] [address], [place] [address] PCP - General Family Medicine 01/03/24 Ostomy Nurse Relationship Specialty Start Date End Date Hilary Aviles APRN-CNP [address], [place] [address] PCP - [facility] Medicine 01/03/24 Ostomy Nurse Relationship Specialty Start Date End Date Hilary Aviles MD [address] [place] [address] [address] [facility] [place] [address] Referring Physician Nurse Practitioner 10/08/22 Ostomy Nurse Relationship Specialty Start Date End Date Hilary Aviles APRN-PIT RECORDER [address], [facility] D [facility] [place] [address] PCP - [facility] 01/03/24 Ostomy Nurse Relationship Specialty Start Date End Date Hilary Aviles MD [address] [place] [address] [place] [address] Referring Physician Nurse Practitioner 10/08/22 FOR RECORDS [...] BE BASED ON THE PRIMARY CLINICAL RECORDS. [facility] [employer] provides no warranty or guarantee of the accuracy or completeness of information in this document.
--- NOTE | 2024-05-10 07:22 | PC.NURSE ---
during triage pt states she is 26 weeks and started having abdominal pain while at work. pt states feels like she is having the worst contractions pt also states pain radiates into her lower back. RN spoke to dr. chaudhari per Dr. Chaudhari pt needs to be seen in [facility] to ensure baby is ok. FHT checked at 138 and pt was transferred to [facility].
--- OUTSIDE RECORDS SUMMARY | 2024-05-10 07:26 | XMS_ITS | CCD ---
Author Organization [facility] Care Team Providers Care Pulp Mill Operator Name Role Phone ADAMOWICZ, SAMARA J Unavailable Unavailable ADAMOWICZ, SAMARA J Unavailable Unavailable ADAMOWICZ, SAMARA J Unavailable Unavailable ADAMOWICZ, SAMARA J Unavailable Unavailable ADAMOWICZ, SAMARA J Unavailable Unavailable ADAMOWICZ, SAMAAR J Unavailable Unavailable ADAMOWICZ, SAMARA J Unavailable Unavailable ADAMOWICZ, SAMARA J Unavailable Unavailable SEBASTIAN HERRING Attending Unavailable SEBASTIAN HERRING Consulting Unavailable SEBASTIAN HERRING [facility] Primary Care Unavailable [...] HILARY Ivan A Primary Care Unavailable SESAR PRIEC Attending Unavailable Traci MAIN ENTREE COOK AND CASHIER-SMOG TECHNICIAN, Hilary A Primary Care Provi lazarus Traci MAIN ENTREE COOK AND CASHIER-SMOG TECHNICIAN, Hilary A Primary Care Provi lazarus HILARY AVILES Referring Unavailable HILARY AVILES A Primary Care Unavailable SHARDA MONTIEL Referring Unavailable HILARY AVILES A Primary Care Unavailable HILARY AVILES A Referring Unavailable HILARY AVILES A Primary Care Unavailable SHARDA MONTIEL Attending Unavailable TRACI, HILARY A Referring Unavailable TRACI, HILARY A Primary Care Unavailable TRACI, HILARY A Referring Unavailable TRACI, HILAYR A Primary Care Unavailable TRACI, HILARY A [...] Attending Unavailable COURTNEY, PARISH Attending Unavailable Traci MAIN ENTREE COOK AND CASHIER-SMOG TECHNICIAN, Hilary A Primary Care Provi lazarus TRACI, [...] Sertraline; Translations: [SERTRALINE] Drug Allergy 11-09-2018 Diarrhea [facility] Medications Current Medications Medication Drug Class(es) Dates Sig (Normalized) Sig (Original) acetaminophen 325 mg / HYDROcodone bitartrate 5 mg oral tablet (4 sources) Opioid Agonist Start: 04-20-2024 take 1 tablet by mouth every six hours for pain HYDROcodone-acetaminop hen ([place]) 5-325 MG tablet Indications: Abdominal pain, unspecified abdominal location , Crohn's disease with complication, unspecified gastrointestinal tract location (CMS/HCC) Take 1 tablet by mouth every 6 (six) hours if needed for moderate pain or severe pain for up to 15 doses 15 tablet 04/20/2024 Active [id number] 200 actuat albuterol 0.09 mg/actuat metered dose [...] Active End: 08-20-2023 cyanocobalamin/folic acid (v itamin E60-kklyv acid) 1,000-400 mcg lozenge B12 08/20/2023 Discontinued [...] 0 05-08-2024 GLUCOSE TOLERANCE 3 HOUR mg/dL [facility] Comment on above: GLU FAST 90 (<95) Co l: 05/08/24 0806 GLU 1HR 159 (<180) Col: 05/08/24 0913 GLU 2HR 142 (<155) Col: 05/08/24 1013 GLU 3HR 117 (<140) Col: 05/08/24 1113 [facility] Ultrasound - OfficeOrdered B y: Rachelle Arredondo on 05-04-2024 Radiology Study observation (narrative) [facility] Urinalysis macro (dipstick) panel (U)on 04-26-2024 Bilirubin, UA Negative Negative - 4(70) +++ mg/dL [facility] Blood, UA Negative Negative - 50 Enrrique/mcL [facility] Clarity, UA Clear [facility] Color, UA Yellow [facility] Glucose, UA Negative Negative - 1999(110) ++++ mg/dL [facility] Interpretation and review of laboratory results Abnormal [facility] Ketones, UA Positive Negative - 160(16) ++++ mg/dL [facility] Leukocytes, UA Negative Negative - 500+++ Cam/mcL [facility] Nitrite, UA Negative Negative - Positive [facility] pH, UA 6.5 5 - 9 [facility] Protein, UA Negative Negative - 1999(20) ++++ mg/dL [facility] Spec Grav, UA 1.03 1 - 1.03 [facility] Urobilinogen, UA 1.0 0.2 - 12 mg/dL [facility] US OB LIMITED 1+ FETUSESon 0 04-21-2024 [...] II, MD, PHD at 22-Apr-2024 09:07:11 AM [facility] Normal Not Available Comment on above: Order Comment: US OB INCOMPLETE ANATOMY Estimated Date of Delivery: 08/11/24 Gestational Age as of 03/25/2024: 20w1d CBC AND AUTO DIFFon 04-20-19 ABSOLUTE BASOPHIL 0.0 X10E9/L Normal 0.0-0.2 [facility] Comment on above: Performed By: #### 2 276-4, CBCA, FEPR #### [facility] ([id number]) [address], [address] [place] [address] ABSOLUTE NEUTROPHIL 5.2 X10E9/L Normal 1.5-6.6 [facility] Comment on above: Performed By: #### 2 276-4, CBCA, FEPR #### [facility] ([id number]) [address], [address] [place] [address] Basophils/100 WBC (Bld) 0.4 % Normal [facility] Comment on above: Performed By: #### 2 276-4, CBCA, FEPR #### [facility] ([id number]) [address], [address] [place] [address] Eosinophils (Bld) [#/Vol] 0.0 10*3/uL Normal 0.0-0.4 [facility] Comment on above: Performed By: #### 2 276-4, CBCA, FEPR #### [facility] ([id number]) [address], [address] [address] Eosinophils/100 WBC (Bld) 0.6 % Normal [facility] Comment on above: Performed By: #### 2 276-4, CBCA, FEPR #### [facility] ([id number]) [address], [facility] [address] [place] [address] Erythrocyte distribution width (RBC) [Ratio] 14.6 % Normal 11.5-15.0 [facility] Comment on above: Performed By: #### 2 276-4, CBCA, FEPR #### [facility] ([id number]) [address], [address] [place] [address] Hematocrit (Bld) [Volume fraction] 32.4 % Low 35-47 [facility] Comment on above: Performed By: #### 2 276-4, CBCA, FEPR #### [facility] ([id number]) [address], [address] [place] [address] Hemoglobin (Bld) [Mass/Vol] 10.7 g/dL Low 11.7-15.5 [facility] Comment on above: Performed By: #### 2 276-4, CBCA, FEPR #### [facility] ([id number]) [address], [facility] [address] [place] [address] Lymphocytes (Bld) [#/Vol] 1.9 10*3/uL Normal 1.0-3.5 [facility] Comment on above: Performed By: #### 2 276-4, CBCA, FEPR #### [facility] ([id number]) [address], [facility] [address] [place] [address] Lymphocytes/100 WBC (Bld) 24.8 % Normal [facility] Comment on above: Performed By: #### 2 276-4, CBCA, FEPR #### [facility] ([id number]) [address], [address] [address] MCH (RBC) [Entitic mass] 30.9 pg Normal 27-34 [facility] Comment on above: Performed By: #### 2 276-4, CBCA, FEPR #### [facility] ([id number]) [address], [facility] [address] [place] [address] MCHC (RBC) [Mass/Vol] 33.0 g/dL Normal 32-36 [facility] Comment on above: Performed By: #### 2 276-4, CBCA, FEPR #### [facility] ([id number]) [address], [address] [address] MCV (RBC) [Entitic vol] 94 fL Normal 80-100 [facility] Comment on above: Performed By: #### 2 276-4, CBCA, FEPR #### [facility] ([id number]) [address] [address] Monocytes (Bld) [#/Vol] 0.5 10*3/uL Normal 0-0.9 [facility] Comment on above: Performed By: #### 2 276-4, CBCA, FEPR #### [facility] ([id number]) [address], [address] [place] [address] Monocytes/100 WBC (Bld) 6.5 % Normal [facility] Comment on above: Performed By: #### 2 276-4, CBCA, FEPR #### [facility] ([id number]) [address], [facility] [address] [place] [address] Neutrophils/100 WBC (Bld) 67.7 % Normal [facility] Comment on above: Performed By: #### 2 276-4, CBCA, FEPR #### [facility] ([id number]) [address], [facility] [address] [place] [address] Platelet mean volume (Bld) [Entitic vol] 10.8 fL Normal 7-12 [facility] Comment on above: Performed By: #### 2 276-4, CBCA, FEPR #### [facility] ([id number]) [address], [facility] [address] [place] [address] Platelets (Bld) [#/Vol] 162 10*3/uL Normal 150-450 [facility] Comment on above: Performed By: #### 2 276-4, CBCA, FEPR #### [facility] ([id number]) [address], [facility] [address] [place] [address] RBC COUNT 3.46 X10E12/L Low 3.80-5.20 [facility] Comment on above: Performed By: #### 2 276-4, CBCA, FEPR #### [facility] ([id number]) [address], [address] [place] [address] WBC (Bld) [#/Vol] 7.7 10*3/uL Normal 4.0-11.0 [facility] Comment on above: Performed By: #### 2 276-4, CBCA, FEPR #### [facility] ([id number]) [address], [address] [place] [address] FERRITINon 04-19-2024 Ferritin [Mass/Vol] 9 ng/mL Low 11-307 [facility] Comment on above: Performed By: #### 2 276-4, CBCA, FEPR #### [facility] ([id number]) [address], [address] [place] [address] IRON PROFILEon 04-19-2024 Iron [Mass/Vol] 78 ug/dL Normal 50-170 [facility] Comment on above: Performed By: #### 2 276-4, CBCA, FEPR #### [facility] ([id number]) [address], [facility] [address] [place] [address] IRON BINDING 475 ug/dL High 250-425 [facility] Comment on above: Performed By: #### 2 276-4, CBCA, FEPR #### [facility] ([id number]) [address], [address] [place] [address] IRON SATURATION 16 % SATURATION Normal 15-50 [facility] Comment on above: Performed By: #### 2 276-4, CBCA, FEPR #### [facility] ([id number]) [address], [address] [place] [address] THIOPURINE METABOLITESon 6 METHYLMERCAPTOPRNE <475 Normal < or = 5700 [facility] Comment on above: Result Comment: NOTE Result not quantifiable; below the limit of quantitation. Decreased risk of hepatotoxicity. ADDITIONAL INFORMATION Testing performed by Liquid Chromatography-Tandem Mass Spectrometry (LC-MS/MS) This test was developed and its performance characteristics determined by [facility] in a manner consistent with CLIA requirements. This test has not been cleared or approved by the U.S. Food and Drug Administration. Test Performed by: [facility] [address] [place] [address] Manager Metrology: Celi Fernandez Ph.D.; CLIA# [id number] Performed By: #### 2 276-4, CBCA, FEPR #### [facility] ([id number]) [address], [address] [place] [address] 6 THIOGUANINE 101 pmol/8x10(8)RBC Low 235 - 450 [facility] Comment on above: Result Comment: NOTE Decreased possibility of response; suboptimal dosing or noncompliance. Performed By: #### 2 276-4, CBCA, FEPR #### [facility] ([id number]) [address], [address] [place] [address] VITAMIN B12on 04-19-2024 Cobalamin (Vitamin B12) [Mass/Vol] 143 pg/mL Low 180-914 [facility] Comment on above: Performed By: #### 2 276-4, CBCA, FEPR #### [facility] ([id number]) [address], [address] [place] [address] Vitamin D+Metabolites [Mass/ Vol]on 04-19-2024 VITAMIN D 25 HYD TOT 12.0 ng/mL Low 30-100 [facility] Comment on above: Result Comment: Vitamin D status 25 [place] Vitamin D Deficiency <20 ng/mL Insufficiency 20-29 ng/mL Sufficiency 30-100 ng/mL Toxicity >100 ng/mL NOTE: A pediatric reference range has not been established by the co founder of this kit. The [employer] [employer] recommends a Vitamin D level of = or >20ng/mL in infants and children. Performed By: #### 2 276-4, CBCA, FEPR #### [facility] ([id number]) [address], [address] [place] [address] No Panel Informationon 03-24 Radiology Study observation (narrative) [facility] OB ANATOMYon 03-24-2024 [place] [address] Ultrasound Report Signed Patient: JUAN LUIS STOREY MR#: [id number] : 1990 Acct:[id number] Age/Sex: 33 / F ADM Date: 03/24/24 Loc: US Attending Dr: Parish Valdez D.O. Ordering Physician: Parish Valdez D.O. Date of Service: 03/24/24 Procedure(s): US OB anatomy Accession Number(s): [id number] cc: Parish Valdez D.O.; Hilary Aviles NP [place] [id number] Patient Name: JUAN LUIS STOREY MRN: [id number] date: 1990 Sex: F Assigned Patient Location: US Current Patient Location: US Accession/Order Number: [id number] Exam Date: 03/24/2024 10:45 Report Date: 03/24/2024 [...] Signed By: 03/24/24 1139 DD/ 1136 TD/TT: In Mold Coater: [facility] Radiology, Radiologaditya duncan MD - 03/24/2024 [place] [address] Ultrasound Report Signed Patient: JUAN LUIS STOREY MR#: [id number] : 1990 Acct:[id number] Age/Sex: 33 / F ADM Date: 03/24/24 Loc: US Attending Dr: Parish Valdez D.O. Ordering Physician: Parsih Valdez D.O. Date of Service: 03/24/24 Procedure(s): US OB anatomy Accession Number(s): [id number] cc: Parish Valdez D.O.; Hilary Aviles NP [place] [address] Patient Name: JUAN LUIS STOREY MRN: [facility]:[id number] date: 1990 Sex: F Assigned Patient Location: US Current Patient Location: US Accession/Order Number: [id number] Exam Date: 03/24/2024 10:45 Report Date: 03/24/2024 [...] Signed By: 03/24/24 1139 DD/ 1136 TD/TT: In Mold Coater: [facility] US OB ANATOMYOrdered By: Sergio iologbruna Radiology on 03-24-2024 [facility] Work Phone: US OB CERVICAL LENGTHon 03-13 [place] [address] Ultrasound Report Signed Patient: JUAN LUIS STOREY MR#: [id number] : 1990 Acct:[id number] Age/Sex: 33 / F ADM Date: 03/24/24 Loc: US Attending Dr: Parish Valdez D.O. Ordering Physician: Parish Valdez D.O. Date of Service: 03/24/24 Procedure(s): US OB cervical length Accession Number(s): [id number] cc: Parish Valdez D.O.; Hilary Aviles NP [place] [id number] Patient Name: JUAN LUIS STOREY MRN: [id number] date: 1990 Sex: F Assigned Patient Location: US Current Patient Location: US Accession/Order Number: [id number] Exam Date: 03/24/2024 10:45 Report Date: 03/24/2024 [...] Signed By: 03/24/24 1138 DD/ 1136 TD/TT: In Mold Coater: [facility] Radiology, Radiologaditya duncan MD - 03/24/2024 [place] [address] Ultrasound Report Signed Patient: JUAN LUIS STOREY MR#: [id number] : 1990 Acct:[id number] Age/Sex: 33 / F ADM Date: 03/24/24 Loc: US Attending Dr: Parish Valdez D.O. Ordering Physician: Parish Valdez D.O. Date of Service: 03/24/24 Procedure(s): US OB cervical length Accession Number(s): [id number] cc: Parish Valdez D.O.; Hilary Aviles NP [place] [address] Patient Name: JUAN LUIS STOREY MRN: [facility]:[id number] date: 1990 Sex: F Assigned Patient Location: US Current Patient Location: US Accession/Order Number: [id number] Exam Date: 03/24/2024 10:45 Report Date: 03/24/2024 [...] Signed By: 03/24/24 1138 DD/ 1136 TD/TT: In Mold Coater: [facility] US OB CERVICAL LENGTHOrdered By: Radiologist Radiology on 03-24-2024 [facility] Work Phone: Ultrasound - OfficeOrdered B y: Rachelle Arredondo on 03-24-2024 [facility] Unlisted Lab Teston 03-24-19 [facility] RECURRENT VAGINITIS (HTRX)on 03-18-2024 ATOPOBIUM VAGINAE 0 [facility] ATOPOBIUM VAGINAE Not detected [facility] BVAB 2,3 (BACTERIAL VAGINOSIS ASSOCIATED BACTERIA 2, 3); MOBILUNCUS SPP 0 [facility] BVAB 2,3 (BACTERIAL VAGINOSIS ASSOCIATED BACTERIA 2, 3); MOBILUNCUS SPP Not detected [facility] WARD ALBICANS, PARAPSILOSIS, TROPICALIS 0 [facility] AWRD ALBICANS, PARAPSILOSIS, TROPICALIS Not detected [facility] WARD GLABRATA 0 [facility] WARD GLABRATA Not detected [facility] WARD KRUSEI 0 [facility] WARD KRUSEI Not detected [facility] CHLAMYDIA TRACHOMATIS 0 [facility] CHLAMYDIA [...] [facility] OB CERVICAL LENGTHon 02-12 [place] [address] Ultrasound Report Signed Patient: JUAN LUIS STOREY MR#: [id number] : 1990 Acct:[id number] Age/Sex: 33 / F ADM Date: 03/11/24 Loc: US Attending Dr: Parish Valdez D.O. Ordering Physician: Parish Valdez D.O. Date of Service: 03/11/24 Procedure(s): US OB cervical length Accession Number(s): [id number] cc: Parish Valdez D.O.; Hilary Aviles NP [place] [address] Patient Name: JUAN LUIS STOREY MRN: [id number]:[id number] date: 1990 Sex: F Assigned Patient Location: Current Patient Location: Accession/Order Number: [id number] Exam Date: 03/11/2024 10:15 Report Date: 03/11/2024 [...] Signed By: 03/11/24 1056 DD/ 1053 TD/TT: In Mold Coater: [facility] Radiology, Radiologaditya duncan MD - 03/11/2024 [place] [address] Ultrasound Report Signed Patient: JUAN LUIS STOREY MR#: [id number] : 1990 Acct:[id number] Age/Sex: 33 / F ADM Date: 03/11/24 Loc: US Attending Dr: Parish Valdez D.O. Ordering Physician: Parish Valdez D.O. Date of Service: 03/11/24 Procedure(s): US OB cervical length Accession Number(s): [id number] cc: Parish Valdez D.O.; Hilary Aviles NP [place] [address] Patient Name: JUAN LUIS STOREY MRN: [facility]:[id number] date: 1990 Sex: F Assigned Patient Location: US Current Patient Location: Accession/Order Number: [id number] Exam Date: 03/11/2024 10:15 Report Date: 03/11/2024 [...] Signed By: 03/11/24 1056 DD/ 1053 TD/TT: In Mold Coater: [facility] Radiology Study observation (narrative) [facility] US OB CERVICAL LENGTHOrdered By: Radiologist Radiology on 03-11-2024 [facility] Work Phone: Urinalysis macro (dipstick) panel (U)on 02-18-2024 Bilirubin, UA Negative Negative - 4(70) +++ mg/dL [facility] Blood, UA Positive Negative - 50 Enrrique/mcL [facility] Comment on above: trace Clarity, UA Clear [facility] Color, UA Yellow [facility] Glucose, UA Negative Negative - 2000(110) ++++ mg/dL [facility] Interpretation and review of laboratory results Abnormal [facility] Ketones, UA Positive Negative - 160(16) ++++ mg/dL [facility] Comment on above: trace Leukocytes, UA Trace Negative - 500+++ Cam/mcL [facility] Nitrite, UA Negative Negative - Positive [facility] pH, UA 7 5 - 9 [facility] Protein, UA Positive Negative - 2000(20) ++++ mg/dL [facility] Comment on above: 30 Spec Grav, UA 1.03 1 - 1.03 [facility] Urobilinogen, UA 1.0 0.2 - 12 mg/dL [facility] ALL CBC WITH AUTO DIFFon BASOPHILS ABSOLUTE AUTO 0 [facility] Basophils/100 WBC (Bld) 0.2 % 0.2 - 2.0 % [facility] Eosinophils/100 WBC (Bld) 0.9 % 0.9 - 7.0 % [facility] Erythrocyte distribution width (RBC) [Ratio] 12.5 % 11.0 - 15.0 % [facility] Hematocrit (Bld) [Volume fraction] 35.3 % Low 36.0 - 48.0 % [facility] Hemoglobin (Bld) [Mass/Vol] 11.8 g/dL Low 12.0 - 16.0 g/dL [facility] IMMATURE GRANULOCYTES ABS AUTO 0.03 [facility] Immature granulocytes/100 WBC (Bld) 0.4 % 0.0 - 0.5 % [facility] Interpretation and review of laboratory results Abnormal [facility] LYMPHOCYTES ABSOLUTE AUTO 2.4 [facility] Lymphocytes/100 WBC (Bld) 29.2 % 20.5 - 60.0 % [facility] MCH (RBC) [Entitic mass] 32 pg 26.7 - 34.0 pg [facility] MCHC (RBC) [Mass/Vol] 33.4 g/dL 29.9 - 35.2 g/dL [facility] MCV (RBC) [Entitic vol] 95.7 fL 81.0 - 99.0 fL [facility] MONOCYTES ABSOLUTE AUTO 0.5 [facility] Monocytes/100 WBC (Bld) 6.5 % 1.7 - 12.0 % [facility] NEUTROPHILS ABSOLUTE AUTO 5.1 [facility] Neutrophils/100 WBC (Bld) 62.8 % 43.0 - 75.0 % [facility] Platelet mean volume (Bld) [Entitic vol] 12 fL 9.5 - 13.5 fL [facility] TBH EO # 0.1 [facility] TBH PLT 194 [facility] TB RBC 3.69 Low [facility] TB WBC 8.2 [facility] No Panel Informationon 02-13 [facility] Rubella IGG immune statuson 02-14-2024 Rubella immune IgG immune [facility] Syphilis Total(Unknown Syphi lis Status)Ordered By: Rachelle Arredondo on 02-14-2024 Syphilis Non-Reactive [facility] BASIC METABOLIC PANLon 01-25 Anion gap [Moles/Vol] 9 mmol/L Normal 5-[address] [facility] Comment on above: Performed By: #### C BREANNA, [address], LIVR, BMP, 95061-9, 1987-06, 06312-3 #### [facility] ([id number]) [address] [place] [address], [address] [place] [address] #### THMET #### [facility] ([id number]) [address] [place] [address], Calcium [Mass/Vol] 8.6 mg/dL Normal 8.5-10.5 [facility] Comment on above: Performed By: #### C BREANNA, [address], LIVR, BMP, 20012-2, 1987-06, 46330-3 #### [facility] ([id number]) [address] [place] [address], [address] [place] [address] #### THMET #### [facility] ([id number]) [address] [place] [address], Chloride [Moles/Vol] 104 mmol/L Normal 98-109 [facility] Comment on above: Performed By: #### C BREANNA, [address], LIVR, BMP, 29764-9, 1987-06, 71823-4 #### [facility] ([id number]) [address] [place] [address], [address] [place] [address] #### THMET #### [facility] ([id number]) [address] [place] [address], CO2 [Moles/Vol] 21 mmol/L Low 22-32 [facility] Comment on above: Performed By: #### Elizabeth CARLOS, [address], LIVR, BMP, 60483-1, 1987-06, 67589-8 #### [facility] ([id number]) [address] [place] [address], [address] [place] [address] #### THMET #### [facility] ([id number]) [address] [place] [address], Creatinine [Mass/Vol] 0.56 mg/dL Normal 0.40-1.00 [facility] Comment on above: Result Comment: METH OD TRACEABLE TO IDMS STANDARD Performed By: #### C BREANNA, [address], LIVR, BMP, 49177-4, 1987-06, 62364-9 #### [facility] ([id number]) [address] [place] [address], [address] [place] [address] #### THMET #### [facility] ([id number]) [address] [place] [address], eGFR (CKD-EPI) NON-RACE DEPENDENT >90 Normal >59 [facility] Comment on above: Result Comment: Reported eGFR is based on the CKD-EPI 2020 equation that does not use a race coefficient. Performed By: #### C BC, [address]131-10, LIVR, BMP, 60567-4, 1987-06, 24116-0 #### [facility] ([id number]) [address] [facility], [address] [place] [address] #### THMET #### [facility] ([id number]) [address] [facility], Glucose [Mass/Vol] 73 mg/dL Normal 65-99 [facility] Comment on above: Performed By: #### C BC, 2131-10, LIVR, BMP, 79339-8, 1987-06, 63830-5 #### [facility] ([id number]) [address] [facility], [address] [place] [address] #### THMET #### [facility] ([id number]) [address] [place] [address], Potassium [Moles/Vol] 3.8 mmol/L Normal 3.5-5.0 [facility] Comment on above: Performed By: #### C BC, [address]131-10, LIVR, BMP, 80018-3, 1987-06, 22548-8 #### [facility] ([id number]) [address] [facility], [address] [place] [address] #### THMET #### [facility] ([id number]) [address] [place] [address], Sodium [Moles/Vol] 134 mmol/L Normal 134-146 [facility] Comment on above: Performed By: #### C BC, 2131-10, LIVR, BMP, 47645-6, 1987-06, 03264-2 #### [facility] ([id number]) [address] [facility] [facility] [facility], [address] [place] [address] #### THMET #### [facility] ([id number]) [address] [facility], Urea nitrogen [Mass/Vol] 6 mg/dL Normal 5-23 [facility] Comment on above: Performed By: #### C BREANNA, 2131-10, LIVR, BMP, 25153-1, 1987-06, 70974-8 #### [facility] ([id number]) [address] [place] [address], [facility] [address] [place] [address] #### THMET #### [facility] ([id number]) [address] [facility], COMPLETE BLOOD COUNTon 01-25 Erythrocyte distribution width (RBC) [Ratio] 13.7 % Normal 11.5-15.0 [facility] Comment on above: Performed By: #### C BREANNA, 2131-10, LIVR, BMP, 64978-4, 1987-06, 67308-0 #### [facility] ([id number]) [address] [place] [address] #### THMET #### [facility] ([id number]) [address] [place] [address], Hematocrit (Bld) [Volume fraction] 38.5 % Normal 35-47 [facility] Comment on above: Performed By: #### C BREANNA, 2131-10, LIVR, BMP, 49965-0, 1987-06, 36524-9 #### [facility] ([id number]) [address] [place] [address], [facility] [address] [place] [address] #### THMET #### [facility] ([id number]) [address] [place] [address], Hemoglobin (Bld) [Mass/Vol] 12.8 g/dL Normal 11.7-15.5 [facility] Comment on above: Performed By: #### C BREANNA, 2131-10, LIVR, BMP, 69826-7, 1987-06, 48290-7 #### [facility] ([id number]) [address] [place] [address], [facility] [address] [place] [address] #### THMET #### [facility] ([id number]) [address] [facility], MCH (RBC) [Entitic mass] 32.5 pg Normal 27-34 [facility] Comment on above: Performed By: #### Elizabeth CARLOS, 2131-10, LIVR, BMP, 82012-3, 1987-06, 98278-2 #### [facility] ([id number]) [address] [place] [address], [address] [place] [address] #### THMET #### [facility] ([id number]) [address] [facility], MCHC (RBC) [Mass/Vol] 33.3 g/dL Normal 32-36 [facility] Comment on above: Performed By: #### C BREANNA, 2131-10, LIVR, BMP, 65303-0, 1987-06, 97338-0 #### [facility] ([id number]) [address] [place] [address], [address] [place] [address] #### THMET #### [facility] ([id number]) [address] [place] [address], MCV (RBC) [Entitic vol] 98 fL Normal 80-100 [facility] Comment on above: Performed By: #### Elizabeth CARLOS, 2131-10, LIVR, BMP, , 1987-06, 68460-7 #### [facility] ([id number]) [address] [place] [address], [address] [place] [address] #### THMET #### [facility] ([id number]) [address] [place] [address], Platelet mean volume (Bld) [Entitic vol] 11.2 fL Normal 7-12 [facility] Comment on above: Performed By: #### Elizabeth CARLOS, 2131-10, LIVR, BMP, 40825-3, 1987-06, 34844-3 #### [facility] ([id number]) [address] [place] [address], [address] [place] [address] #### THMET #### [facility] ([id number]) [address] [place] [address], Platelets (Bld) [#/Vol] 108 10*3/uL Low 150-450 [facility] Comment on above: Performed By: #### Elizabeth CARLOS, 2131-10, LIVR, BMP, 85898-7, 1987-06, 31539-9 #### [facility] ([id number]) [address] [place] [address], [place] [address] #### THMET #### [facility] ([id number]) [address] [place] [address], RBC COUNT 3.95 X10E12/L Normal 3.80-5.20 [facility] Comment on above: Performed By: #### Elizabeth CARLOS, 2131-10, LIVR, BMP, 32581-6, 1987-06, 57128-2 #### [facility] ([id number]) [address] [place] [address], [place] [address] #### THMET #### [facility] ([id number]) [address] [place] [address], WBC (Bld) [#/Vol] 7.2 10*3/uL Normal 4.0-11.0 [facility] Comment on above: Performed By: #### Elizabeth CARLOS, 2131-10, LIVR, BMP, 78283-2, 1987-06, 01721-1 #### [facility] ([id number]) [address] [place] [address] #### THMET #### [facility] ([id number]) [address] [place] [address], CRP [Mass/Vol]on 01-26-2024 C REACTIVE PROTEIN 0.7 mg/dL Normal 0.000-0.744 [facility] Comment on above: Performed By: #### C BC, 2131-10, LIVR, BMP, 58706-6, 1987-06, 75941-0 #### [facility] ([id number]) [address], [address] [place] [address] #### THMET #### [facility] ([id number]) [facility], ESR Photometric method (Bld) [Velocity]on 01-26-2024 ESR, ERYTHROCYTE SEDIMENTATION RATE 1 mm/h Normal 0-20 [facility] Comment on above: Performed By: #### C BREANNA, 2131-10, LIVR, BMP, , 1987-06, 62404-3 #### [facility] ([id number]) [address] [facility], [address] [place] [address] #### THMET #### [facility] ([id number]) [address] [place] [address], LIVER PANELon 01-26-2024 Albumin [Mass/Vol] 3.7 g/dL Normal 3.2-5.3 [facility] Comment on above: Performed By: #### C BREANNA, 2131-10, LIVR, BMP, , 1987-06, 46066-8 #### [facility] ([id number]) [address] [facility], [address] [place] [address] #### THMET #### [facility] ([id number]) [address] [place] [address], ALP [Catalytic activity/Vol] 29 U/L Low 39-130 [facility] Comment on above: Performed By: #### C BREANNA, 2131-10, LIVR, BMP, 45563-2, 1987-06, 37680-5 #### [facility] ([id number]) [address] [facility], [address] [place] [address] #### THMET #### [facility] ([id number]) [address] [facility], ALT [Catalytic activity/Vol] 8 U/L Normal 0-31 [facility] Comment on above: Performed By: #### C BREANNA, 2131-10, LIVR, BMP, 24864-8, 1987-06, 87183-4 #### [facility] ([id number]) [address] [place] [address], [address] [place] [address] #### THMET #### [facility] ([id number]) [address] [place] [address], AST [Catalytic activity/Vol] 19 U/L Normal 0-41 [facility] Comment on above: Performed By: #### C BREANNA, 2131-10, LIVR, BMP, 64635-7, 1987-06, 91781-5 #### [facility] ([id number]) [address] [place] [address], [address] [place] [address] #### THMET #### [facility] ([id number]) [address] [place] [address], Bilirubin [Mass/Vol] 0.4 mg/dL Normal 0.3-1.2 [facility] Comment on above: Performed By: #### C BREANNA, 2131-10, LIVR, BMP, 83022-6, 1987-06, 18572-8 #### [facility] ([id number]) [address] [place] [address], [address] [place] [address] #### THMET #### [facility] ([id number]) [address] [place] [address], Bilirubin.direct [Mass/Vol] 0.1 mg/dL Normal 0.0-0.4 [facility] Comment on above: Performed By: #### Elizabeth CARLOS, 2131-10, LIVR, BMP, 45668-1, 1987-06, 46496-5 #### [facility] ([id number]) [address] [place] [address], [address] [place] [address] #### THMET #### [facility] ([id number]) [address] [facility], Protein [Mass/Vol] 7.0 g/dL Normal 6.0-8.0 [facility] Comment on above: Performed By: #### C BC, 2131-10, LIVR, BMP, 61184-3, 1987-06, 73647-8 #### [facility] ([id number]) [address] [place] [address], [address] [place] [address] #### THMET #### [facility] ([id number]) [address] [place] [address], THIOPURINE METABOLITESon 6 THIOGUANINE Not performed Normal [facility] Comment on above: Result Comment: NOTE Thiopurine Metabolites, B was cancelled on 02/02/2024 at 16:27; Quantity not sufficient to test. Test Performed by: [facility] [address] [place] [address] Manager Metrology: Celi Fernandez Ph.D.; CLIA# [id number] Performed By: #### 2 276-4, CBCA, FEPR #### [facility] ([id number]) [address] [place] [address], [address] [place] [address] VITAMIN B12on 01-26-2024 Cobalamin (Vitamin B12) [Mass/Vol] 239 pg/mL Normal 180-914 [facility] Comment on above: Performed By: #### C , 2131-10, LIVR, BMP, 33565-3, 1987-06, 43687-6 #### [facility] ([id number]) [address] [place] [address], [address] [place] [address] #### THMET #### [facility] ([id number]) [address] [place] [address], Vitamin D+Metabolites [Mass/ Vol]on 01-26-2024 VITAMIN D 25 HYD TOT 10.1 ng/mL Low 30-100 [facility] Comment on above: Result Comment: Vitamin D status 25 [place] Vitamin D Deficiency <20 ng/mL Insufficiency 20-29 ng/mL Sufficiency 30-100 ng/mL Toxicity >100 ng/mL NOTE: A pediatric reference range has not been established by the co founder of this kit. The [employer] recommends a Vitamin D level of = or >20ng/mL in infants and children. Performed By: #### 2 276-4, CBCA, FEPR #### [facility] ([id number]) [address] [place] [address], [address] [place] [address] HCG ( test) Ql (U)o n 01-23-2024 Interpretation and review of laboratory results Abnormal [facility] Preg Test, Ur Positive Negative [facility] Urinalysis macro (dipstick) panel (U)on 01-23-2024 Bilirubin, UA Negative Negative - 4(70) +++ mg/dL [facility] Blood, UA Positive Negative - 50 Enrrique/mcL [facility] Clarity, UA Clear [facility] Color, UA Yellow [facility] Glucose, UA Negative Negative - 1999(110) ++++ mg/dL [facility] Interpretation and review of laboratory results Abnormal [facility] Ketones, UA Positive Negative - 160(16) ++++ mg/dL [facility] Leukocytes, UA Negative Negative - 500+++ Cam/mcL [facility] Nitrite, UA Negative Negative - Positive [facility] pH, UA 7 5 - 9 [facility] Protein, UA Trace Negative - 2000(20) ++++ mg/dL [facility] Spec Grav, UA 1.015 1 - 1.03 [facility] Urobilinogen, UA 1.0 0.2 - 12 mg/dL [facility] KAY FECAL OCCULT BLDon 01-02 Hemoglobin.gastrointe stinal Ql (Stl) Negative Normal [facility] Comment on above: Performed By: #### 2 335-8 #### [facility] ([id number]) [address] [place] [address], [place] [address] CBC AND AUTO DIFFon 11-30- 24 ABSOLUTE BASOPHIL 0.0 X10E9/L Normal 0.0-0.2 [facility] Comment on above: Performed By: #### Elizabeth ARROYO, FEPR, 2275-4 #### [facility] ([id number]) [address] [address] [place] [address] ABSOLUTE NEUTROPHIL 1.9 X10E9/L Normal 1.5-6.6 [facility] Comment on above: Performed By: #### Elizabeth ARROYO, FEPR, 2275- #### [facility] ([id number]) [address] [address] [place] [address] Basophils/100 WBC (Bld) 0.5 % Normal [facility] Comment on above: Performed By: #### Elizabeth ARROYO, FEPR, 2275-4 #### [facility] ([id number]) [address], [facility] [address] [place] [address] Eosinophils (Bld) [#/Vol] 0.1 10*3/uL Normal 0.0-0.4 [facility] Comment on above: Performed By: #### Elizabeth ARROYO, FEPR, 2275-05 #### [facility] ([id number]) [address] [address] Eosinophils/100 WBC (Bld) 2.3 % Normal [facility] Comment on above: Performed By: #### Elizabeth ARROYO, FEPR, 2275- #### [facility] ([id number]) [address] [address] [place] [address] Erythrocyte distribution width (RBC) [Ratio] 13.3 % Normal 11.5-15.0 [facility] Comment on above: Performed By: #### Elizabeth ARROYO, FEPR, 2275-4 #### [facility] ([id number]) [address], [facility] [address] [place] [address] Hematocrit (Bld) [Volume fraction] 36.2 % Normal 35-47 [facility] Comment on above: Performed By: #### EDWIN Johnson BCA, 6-4 #### [facility] ([id number]) [address], [address] [place] [address] Hemoglobin (Bld) [Mass/Vol] 12.8 g/dL Normal 11.7-15.5 [facility] Comment on above: Performed By: #### Elizabeth ARROYO FEPR, 2275-4 #### [facility] ([id number]) [address] [address] [place] [address] Lymphocytes (Bld) [#/Vol] 2.3 10*3/uL Normal 1.0-3.5 [facility] Comment on above: Performed By: #### Elizabeth ARROYO FEPR, 2275-4 #### [facility] ([id number]) [address], [facility] [address] [place] [address] Lymphocytes/100 WBC (Bld) 47.4 % Normal [facility] Comment on above: Performed By: #### Elizabeth ARROYO FEPR, 4 #### [facility] ([id number]) [address], [address] [place] [address] MCH (RBC) [Entitic mass] 33.2 pg Normal 27-34 [facility] Comment on above: Performed By: #### Elizabeth ARROYO FEPR, 2275-4 #### [facility] ([id number]) [address], [address] [place] [address] MCHC (RBC) [Mass/Vol] 35.5 g/dL Normal 32-36 [facility] Comment on above: Performed By: #### Elizabeth ARROYO, FEPR, 2275-4 #### [facility] ([id number]) [address], [address] [place] [address] MCV (RBC) [Entitic vol] 94 fL Normal 80-100 [facility] Comment on above: Performed By: #### Elizabeth ARROYO, FEPR, 6-4 #### [facility] ([id number]) [address], [address] [place] [address] Monocytes (Bld) [#/Vol] 0.4 10*3/uL Normal 0-0.9 [facility] Comment on above: Performed By: #### Elizabeth ARROYO, FEPR, 2275-4 #### [facility] ([id number]) [address], [address] [place] [address] Monocytes/100 WBC (Bld) 9.1 % Normal [facility] Comment on above: Performed By: #### Elizabeth ARROYO, FEPR, 4 #### [facility] ([id number]) [address], [address] [place] [address] Neutrophils/100 WBC (Bld) 40.7 % Normal [facility] Comment on above: Performed By: #### Elizabeth ARROYO, FEPR, 2275- #### [facility] ([id number]) [address], [address] [place] [address] Platelet mean volume (Bld) [Entitic vol] 11.1 fL Normal 7-12 [facility] Comment on above: Performed By: #### Elizabeth ARROYO, FEPR, 2275- #### [facility] ([id number]) [address], [address] [place] [address] Platelets (Bld) [#/Vol] 187 10*3/uL Normal 150-450 [facility] Comment on above: Performed By: #### Elizabeth BCA, FEPR, 2275-4 #### [facility] ([id number]) [address], [address] [place] [address] RBC COUNT 3.87 X10E12/L Normal 3.80-5.20 [facility] Comment on above: Performed By: #### Elizabeth ARROYO, FEPR, 6-4 #### [facility] ([id number]) [address] [address] WBC (Bld) [#/Vol] 4.8 10*3/uL Normal 4.0-11.0 [facility] Comment on above: Performed By: #### C BCA, FEPR, 2275-4 #### [facility] ([id number]) [address] [address] FERRITINon 12-01-2023 Ferritin [Mass/Vol] 12 ng/mL Normal 11-307 [facility] Comment on above: Performed By: #### C BCA, FEPR, 2275-4 #### [facility] ([id number]) [address] [address] IRON PROFILEon 12-01-2023 Iron [Mass/Vol] 74 ug/dL Normal 50-170 [facility] Comment on above: Performed By: #### C BCA, FEPR, 2275-4 #### [facility] ([id number]) [address] [address] IRON BINDING 344 ug/dL Normal 250-425 [facility] Comment on above: Performed By: #### C BCA, FEPR, 6-4 #### [facility] ([id number]) [address] [address] IRON SATURATION 21 % SATURATION Normal 15-50 [facility] Comment on above: Performed By: #### C BCA, FEPR, 6-4 #### [facility] ([id number]) [address] [address] CBC AND AUTO DIFFon 24-20 24 ABSOLUTE BASOPHIL 0.0 X10E9/L Normal 0.0-0.2 [facility] Comment on above: Performed By: #### 2 276-4, CBCA, FEPR #### [facility] ([id number]) [address], [address] [place] [address] ABSOLUTE NEUTROPHIL 2.7 X10E9/L Normal 1.5-6.6 [facility] Comment on above: Performed By: #### 2 276-4, CBCA, FEPR #### [facility] ([id number]) [address], [address] [place] [address] Basophils/100 WBC (Bld) 0.4 % Normal [facility] Comment on above: Performed By: #### 2 276-4, CBCA, FEPR #### [facility] ([id number]) [address], [address] [place] [address] Eosinophils (Bld) [#/Vol] 0.1 10*3/uL Normal 0.0-0.4 [facility] Comment on above: Performed By: #### 2 276-4, CBCA, FEPR #### [facility] ([id number]) [address], [address] [place] [address] Eosinophils/100 WBC (Bld) 2.0 % Normal [facility] Comment on above: Performed By: #### 2 276-4, CBCA, FEPR #### [facility] ([id number]) [address], [address] [place] [address] Erythrocyte distribution width (RBC) [Ratio] 13.5 % Normal 11.5-15.0 [facility] Comment on above: Performed By: #### 2 276-4, CBCA, FEPR #### [facility] ([id number]) [address], [address] [place] [address] Hematocrit (Bld) [Volume fraction] 35.2 % Normal 35-47 [facility] Comment on above: Performed By: #### 2 276-4, CBCA, FEPR #### [facility] ([id number]) [address] [address] [place] [address] Hemoglobin (Bld) [Mass/Vol] 12.2 g/dL Normal 11.7-15.5 [facility] Comment on above: Performed By: #### 2 276-4, CBCA, FEPR #### [facility] ([id number]) [address] [address] Lymphocytes (Bld) [#/Vol] 1.9 10*3/uL Normal 1.0-3.5 [facility] Comment on above: Performed By: #### 2 276-4, CBCA, FEPR #### [facility] ([id number]) [address] [address] Lymphocytes/100 WBC (Bld) 36.8 % Normal [facility] Comment on above: Performed By: #### 2 276-4, CBCA, FEPR #### [facility] ([id number]) [address], [address] [address] MCH (RBC) [Entitic mass] 31.9 pg Normal 27-34 [facility] Comment on above: Performed By: #### 2 276-4, CBCA, FEPR #### [facility] ([id number]) [address] [address] MCHC (RBC) [Mass/Vol] 34.5 g/dL Normal 32-36 [facility] Comment on above: Performed By: #### 2 276-4, CBCA, FEPR #### [facility] ([id number]) [address] [address] MCV (RBC) [Entitic vol] 93 fL Normal 80-100 [facility] Comment on above: Performed By: #### 2 276-4, CBCA, FEPR #### [facility] ([id number]) [address], [address] [place] [address] Monocytes (Bld) [#/Vol] 0.4 10*3/uL Normal 0-0.9 [facility] Comment on above: Performed By: #### 2 276-4, CBCA, FEPR #### [facility] ([id number]) [address], [address] [place] [address] Monocytes/100 WBC (Bld) 8.3 % Normal [facility] Comment on above: Performed By: #### 2 276-4, CBCA, FEPR #### [facility] ([id number]) [address], [address] [place] [address] Neutrophils/100 WBC (Bld) 52.5 % Normal [facility] Comment on above: Performed By: #### 2 276-4, CBCA, FEPR #### [facility] ([id number]) [address], [address] [place] [address] Platelet mean volume (Bld) [Entitic vol] 10.7 fL Normal 7-12 [facility] Comment on above: Performed By: #### 2 276-4, CBCA, FEPR #### [facility] ([id number]) [address], [address] [place] [address] Platelets (Bld) [#/Vol] 198 10*3/uL Normal 150-450 [facility] Comment on above: Performed By: #### 2 276-4, CBCA, FEPR #### [facility] ([id number]) [address], [address] [place] [address] RBC COUNT 3.81 X10E12/L Normal 3.80-5.20 [facility] Comment on above: Performed By: #### 2 276-4, CBCA, FEPR #### [facility] ([id number]) [address], [address] [place] [address] WBC (Bld) [#/Vol] 5.2 10*3/uL Normal 4.0-11.0 [facility] Comment on above: Performed By: #### 2 276-4, CBCA, FEPR #### [facility] ([id number]) [address], [address] [place] [address] FERRITINon 08-04-2023 Ferritin [Mass/Vol] 27 ng/mL Normal 11-307 [facility] Comment on above: Performed By: #### 2 276-4, CBCA, FEPR #### [facility] ([id number]) [address], [address] [place] [address] IRON PROFILEon 08-04-2023 Iron [Mass/Vol] 46 ug/dL Low 50-170 [facility] Comment on above: Performed By: #### 2 276-4, CBCA, FEPR #### [facility] ([id number]) [address], [address] [place] [address] IRON BINDING 273 ug/dL Normal 250-425 [facility] Comment on above: Performed By: #### 2 276-4, CBCA, FEPR #### [facility] ([id number]) [address], [address] [place] [address] IRON SATURATION 17 % SATURATION Normal 15-50 [facility] Comment on above: Performed By: #### 2 276-4, CBCA, FEPR #### [facility] ([id number]) [address], [address] [place] [address] M. tuberculosis stim IFN-g p carrillo (Bld)on 08-04-2023 Mitogen minus Nil Result 9.92 IU/mL Normal [facility] Comment on above: Performed By: #### 7 1775-1 #### [facility] ([id number]) [address] [facility], Nil Result 0.08 IU/mL Normal [facility] Comment on above: Result Comment: NOTE Test Performed by: [facility] [address] [place] [address] Manager Metrology: Celi Fernandez Ph.D.; CLIA# [id number] Performed By: #### 7 1775-1 #### [employer] ([id number]) [address] [facility], QuantiFERON-Tb Gold Plus Result Negative Normal Negative [facility] Comment on above: Result Comment: NOTE [...] IU/mL. Performed By: #### 7 1775-1 #### [email or web address] [facility] ([id number]) [address] [facility], TB1 Ag minus Nil Result 0.09 IU/mL Normal [facility] Comment on above: Performed By: #### 7 1775-1 #### [facility] ([id number]) [facility], TB2 Ag minus Nil Result 0.01 IU/mL Normal [facility] Comment on above: Performed By: #### 7 1775-1 #### [facility] ([id number]) [address] [facility], PAP ACOG PANEL 2: 30 to 65on 05-07-2022 . . Normal [facility] Comment on above: Result Comment: Perf ormed at: WB Performed By: #### [id number] #### [facility] [address] [address] [address] Bisi Glass Age Gdln ACOG Testing 30-65 [facility] Comment on above: Performed By: #### [id number] #### [facility] [address] [address] [address] Bisi Glass DIAGNOSIS: Comment Normal [facility] Comment on above: Result Comment: NEGA TIVE FOR INTRAEPITHELIAL LESION OR MALIGNANCY. Performed at: WB Performed By: #### [id number] #### [facility] [address] [place] [address] Dr. Bisi Glass HPV Aptima Negative Normal Negative [facility] Comment on above: Result Comment: This nucleic acid amplification test detects fourteen high-risk HPV types (16,18,31,33,35,39,45,51,52,56,58,59,66,68) without differentiation. Performed at: =G Performed By: #### [id number] #### [facility] [address] [place] [address] Dr. Bisi Glass HPV Genotype Reflex Comment Normal [facility] Comment on above: Result Comment: Crit eria not met, HPV Genotype not performed. Performed at: WB Performed By: #### [id number] #### [facility] [address] [place] [address] Dr. Bisi Glass Methodology: Comment Normal [facility] Comment on above: Result Comment: This liquid based ThinPrep(R) pap test was screened with the use of an image guided system. Performed at: WB Performed By: #### [id number] #### [facility] [address] [place] [address] Dr. Bisi Glass Note: Comment Normal [facility] Comment on above: Result Comment: The Pap smear is a screening test designed to aid in the detection of premalignant and malignant conditions of the uterine cervix. It is not a diagnostic procedure and should not be used as the sole means of detecting cervical cancer. Both false-positive and false-negative reports do occur. . Performed at: WB Performed By: #### [id number] #### [facility] [address] [place] [address] Dr. Bisi Glass Performed by: Comment Normal [facility] Comment on above: Result Comment: Ngozi Hamlin, Warrant Server (ASCP) Performed at: WB Performed By: #### [id number] #### [facility] [address] [place], [place] [address] Dr. Bisi Glass Specimen adequacy: Comment Normal [facility] Comment on above: Result Comment: Sati sfactory for evaluation. Endocervical and/or squamous metaplastic cells (endocervical component) are present. Performed at: WB Performed By: #### [id number] #### [facility] [address] [place], [place] [address] Dr. Bisi Glass CNCOon 02-11-2017 CNCO Letter [facility] [place] [address]Rybzg: [phone]: [facility] [place], [place] [address]Qykno: [phone]: [place] [id number] [place], [place] [address]Gehwp: [phone]: Toll Free: [phone] [email or web address] Raza Roldan M.D., Jhon Mora M.D.Barry Camarena M.D.Samara Hernandez D.O..Oksana Benson M.D.Jarod Stovall M.D.February 11, [address] [address]Gocm Ms. Storey,You missed your scheduled appointment on Saturday February 11, 2017. Pleasecall our office to reschedule. If you need to cancel any futureappointments, please call to give us 24 hour notice so that we can offer yourappointment to another patient.Sincerely,Brando Carvajal. Normal [facility] 12-03-2016 HOSP Infusion Center (HEMTCL) RALEIGHSTEVEMagen Richey ([id number]) 1990 FDate Time Provider Olekpqdhww33/24/17 1:00 PM CHAIR 1 JOSE HEMTCL During your visit today, we recorded the following information about you: Temperature Pulse Respiration Blood pressure 98.9 degrees 76/minute 18/minute 97/64Referring Provider: SAMARA HERNANDEZ [[id number]]Allergies As of Date: 12/03/2016(No Known Allergies)Date Reviewed: 12/03/2016Reviewed by: Kristi (Rn) JAD Partida - Fully AssessedPrimary Visit Diagnosis:Anemia, unspecified type [D64.9]Order(s):TREATMEN T PARAMETER-NOT NEEDED [[id number]] Order #: [id number]: 1 HEMONC NURSING COMMUNICATION [[id number]] Order #: [id number]: 1 STANDING HEMONC NURSING COMMUNICATION [[id number]] Order #: [id number]: 1 STANDING HEMONC NURSING COMMUNICATION [[id number]] Order #: [id number]: 1 STANDING HEMONC NURSING COMMUNICATION [[id number]] Order #: [id number]: 1 STANDING HEMONC NURSING COMMUNICATION [[id number]] Order #: [id number]: 1 STANDING HEMONC NURSING COMMUNICATION [[id number]] Order #: [id number]: 1 STANDING [] iron sucrose 200 mg [...] (1 ML) INJECTION* 12/03/2016 Route: INTRAMUSCULAEncounter Number: [id number] Status:Closed by KRISTI PARTIDA on 12/03/16 [facility] CNOVSPon 11-19-2016 CNOVSP Visit (SP) Office (HEMACL) JUAN LUIS STOREY ([id number]) 1990 [facility] Time Provider Ecndovthlf91/10/17 11:00 AM SAMARA HERNANDEZ HEMACL During your visit today, we recorded the following information about you: Temperature Pulse Respiration Blood pressure 97.8 degrees 78/minute 18/minute 96/61 Weight Height 59.6 kg 1.632 mAprimarii Berger 11/19/2016 11:15 AM SignedPatient states feeling more fatigue.Samara Hernandez DO 11/23/2016 9:43 AM SignedPATIENT NAME: Juan Luis StoreyMRN: [id number] PHYSICIAN: IFTIKHAR RAZO[address] [place] [address] CARE PHYSICIAN: Iftikhar RazoOTHER PHYSICIANS:CHIEF COMPLAINT: Anemia, [...] PRESENT ILLNESS: This is a 26year old -Georgian femaleCBC from 05/22/16 reveals white blood cell [...] her second kid in dec 2014.Works a [employer] service.June 04, 2016Eats a bag of ice [...] I answered all questions satisfactorily..Mariano Hernandez D.O.Medical OncologistSto[place], [place]Referring Provider: SAMARA HERNANDEZ [[id number]]Allergies As of Date: 11/19/2016(No Known Allergies)Date Reviewed: [...] Status:Closed by SAMARA HERNANDEZ DO on 11/23/16 [facility] PROGRESSon 11-19-2016 PROGRESS HNO ID: [id number]: Samara HernandezSer: (none)Author Type: PhysicianType: Progress NotesFiled: 11/23/2016 9:43 AMNote Text:PATIENT NAME: Juan Luis Richey RaleighMRN: [id number] PHYSICIAN: IFTIKHAR RAZO[address] [place] [address] CARE PHYSICIAN: Iftikhar RazoOTHER PHYSICIANS:CHIEF COMPLAINT: Anemia, [...] PRESENT ILLNESS: This is a 26year old -Georgian femaleCBC from 05/22/16 reveals white blood cell [...] her second kid in dec 2014.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.June 04, 2016Eats a bag of [...] I answered all questions satisfactorily..Mariano Hernandez D.O.Medical OncologistSto[place], [place] Normal [facility] Remote CBCDIF (for [facility] use o nly)on 11-19-2016 Abs Baso 0.02 k/uL Normal <0.11 [facility] Abs Tensas 0.40 k/uL Normal 0.00-0.86 [facility] Abs Neut 3.13 k/uL Normal 1.45-7.50 [facility] Basophils/100 WBC Auto (Bld) 0.4 % Normal [facility] Eosinophils 0.05 10*3/uL Normal <0.46 [facility] Eosinophils/100 leukocytes 0.9 % Normal [facility] Erythrocyte distribution width Auto Ratio (RBC) 13.5 % Normal 11.5-15.0 [facility] Erythrocytes (RBC) 3.87 10*6/uL Low 3.90-5.20 [facility] Hematocrit (HCT) 33.0 % Low 36.0-46.0 [facility] Hemoglobin mass conc (Bld) 10.5 g/dL Low 11.5-15.5 [facility] Lymphocytes 1.70 10*3/uL Normal 1.00-4.00 [facility] Lymphocytes/100 leukocytes 32.1 % Normal [facility] MCH 27.1 pG Normal 26.0-34.0 [facility] MCHC mass conc (RBC) 31.8 g/dL Normal 30.5-36.0 [facility] MCV 85.3 fL Normal 80.0-100.0 [facility] Monocytes/100 leukocytes 7.5 % Normal [facility] Neutrophils/100 WBC Auto (Bld) 59.1 % Normal [facility] Platelet mean volume (PMV) 11.0 fL Normal 9.0-12.7 [facility] Platelets 288 10*3/uL Normal 150-400 [facility] WBC (Leukocytes) 5.30 10*3/uL Normal 3.70-11.00 [facility] Remote iSTAT BMP (for [facility] us e only)on 11-19-2016 Anion gap 11 mmol/L Normal 0-15 [facility] BUN (urea nitrogen) 12 mg/dL Normal 8-25 [facility] Chloride 105 mmol/L Normal 98-110 [facility] CO2 24 mmol/L Normal 23-32 [facility] Creatinine 0.70 mg/dL Normal 0.70-1.40 [facility] eGFR (non-black) mL/min/{1.73_m2} Normal [facility] Comment on above: Result Comment: eGFR [...] Glucose mass conc 79 mg/dL Normal 65-100 [facility] Ionized Calcium, WB 1.14 mmol/L Normal 1.08-1.30 [facility] Comment on above: Result Comment: Lore reyes note: This value represents ionized calcium not total calcium. Potassium molar conc 4.0 mmol/L Normal 3.5-5.0 [facility] Sodium 140 mmol/L Normal 132-148 [facility] Ferritinon 10-29-2016 Ferritin 19.8 ng/mL Normal 14.7-205.1 [facility] Comment on above: Performed By: #### I CHERYL FERR ####[place] [phone] Iron and TIBCon 10-29-2016 Iron 21 ug/dL Low 41-186 [facility] Comment on above: Performed By: #### I CHERYL, FERR ####[place] [phone] TIBC 331 ug/dL Normal 232-386 [facility] Comment on above: Performed By: #### Aditya LUNA, FERR ####[address] [phone] Transferrin Saturatn 6 % Low 15-57 [facility] Comment on above: Performed By: #### Aditya LUNA FERR ####[place] [phone] Remote CBCDIF (for [facility] use o nly)on 10-29-2016 Abs Baso 0.02 k/uL Normal 0.00-0.10 [facility] Abs Tensas 0.42 k/uL Normal 0.00-0.86 [facility] Abs Neut 3.06 k/uL Normal 1.45-7.50 [facility] Basophils/100 WBC Auto (Bld) 0.3 % Normal [facility] Eosinophils 0.11 10*3/uL Normal 0.00-0.45 [facility] Eosinophils/100 leukocytes 1.8 % Normal [facility] Erythrocyte distribution width Auto Ratio (RBC) 12.9 % Normal 11.5-15.0 [facility] Erythrocytes (RBC) 3.90 10*6/uL Normal 3.90-5.20 [facility] Hematocrit (HCT) 34.0 % Low 36.0-46.0 [facility] Hemoglobin mass conc (Bld) 10.8 g/dL Low 11.5-15.5 [facility] Lymphocytes 2.37 10*3/uL Normal 1.00-4.00 [facility] Lymphocytes/100 leukocytes 39.6 % Normal [facility] MCH 27.7 pG Normal 26.0-34.0 [facility] MCHC mass conc (RBC) 31.8 g/dL Normal 30.5-36.0 [facility] MCV 87.2 fL Normal 80.0-100.0 [facility] Monocytes/100 leukocytes 7.0 % Normal [facility] Neutrophils/100 WBC Auto (Bld) 51.3 % Normal [facility] Platelet mean volume (PMV) 10.8 fL Normal 9.0-12.7 [facility] Platelets 268 10*3/uL Normal 150-400 [facility] WBC (Leukocytes) 5.98 10*3/uL Normal 3.70-11.00 [facility] Remote iSTAT BMP (for [facility] us e only)on 10-29-2016 Anion gap 11 mmol/L Normal 0-15 [facility] BUN (urea nitrogen) 9 mg/dL Normal 8-25 [facility] Chloride 104 mmol/L Normal 98-110 [facility] CO2 26 mmol/L Normal 23-32 [facility] Creatinine 0.70 mg/dL Normal 0.70-1.40 [facility] eGFR (non-black) mL/min/{1.73_m2} Normal [facility] Comment on above: Result Comment: eGFR [...] Glucose mass conc 83 mg/dL Normal 65-100 [facility] Ionized Calcium, WB 1.16 mmol/L Normal 1.08-1.30 [facility] Comment on above: Result Comment: Plea se note: This value represents ionized calcium not total calcium. Potassium molar conc 3.8 mmol/L Normal 3.5-5.0 [facility] Sodium 141 mmol/L Normal 132-148 [facility] Ferritinon 10-01-2016 Ferritin 9.1 ng/mL Low 14.7-205.1 [facility] Comment on above: Performed By: #### I CHERYL FERR ####[place] [phone] Iron and TIBCon 10-01-2016 Iron 34 ug/dL Low 41-186 [facility] Comment on above: Performed By: #### I CHERYL, FERR ####[facility] [place] [phone] TIBC 316 ug/dL Normal 232-386 [facility] Comment on above: Performed By: #### I CHERYL, FERR ####[facility] [address] [place], [place] [phone] Transferrin Saturatn 11 % Low 15-57 [facility] Comment on above: Performed By: #### I CHERYL, FERR ####[address] [phone] Remote CBCDIF (for [facility] use o nly)on 10-01-2016 Abs Baso 0.02 k/uL Normal 0.00-0.10 [facility] Abs Tensas 0.53 k/uL Normal 0.00-0.86 [facility] Abs Neut 2.48 k/uL Normal 1.45-7.50 [facility] Basophils/100 WBC Auto (Bld) 0.4 % Normal [facility] Eosinophils 0.09 10*3/uL Normal 0.00-0.45 [facility] Eosinophils/100 leukocytes 1.6 % Normal [facility] Erythrocyte distribution width Auto Ratio (RBC) 13.7 % Normal 11.5-15.0 [facility] Erythrocytes (RBC) 3.85 10*6/uL Low 3.90-5.20 [facility] Hematocrit (HCT) 33.5 % Low 36.0-46.0 [facility] Hemoglobin mass conc (Bld) 10.7 g/dL Low 11.5-15.5 [facility] Lymphocytes 2.36 10*3/uL Normal 1.00-4.00 [facility] Lymphocytes/100 leukocytes 43.1 % Normal [facility] MCH 27.8 pG Normal 26.0-34.0 [facility] MCHC mass conc (RBC) 31.9 g/dL Normal 30.5-36.0 [facility] MCV 87.0 fL Normal 80.0-100.0 [facility] Monocytes/100 leukocytes 9.7 % Normal [facility] Neutrophils/100 WBC Auto (Bld) 45.2 % Normal [facility] Platelet mean volume (PMV) 10.8 fL Normal 9.0-12.7 [facility] Platelets 282 10*3/uL Normal 150-400 [facility] WBC (Leukocytes) 5.48 10*3/uL Normal 3.70-11.00 [facility] Remote iSTAT BMP (for [facility] us e only)on 10-01-2016 Anion gap 13 mmol/L Normal 0-15 [facility] BUN (urea nitrogen) 14 mg/dL Normal 8-25 [facility] Chloride 102 mmol/L Normal 98-110 [facility] CO2 24 mmol/L Normal 23-32 [facility] Creatinine 0.70 mg/dL Normal 0.70-1.40 [facility] eGFR (non-black) mL/min/{1.73_m2} Normal [facility] Comment on above: Result Comment: eGFR [...] Glucose mass conc 93 mg/dL Normal 65-100 [facility] Ionized Calcium, WB 1.14 mmol/L Normal 1.08-1.30 [facility] Comment on above: Result Comment: Lore reyes note: This value represents ionized calcium not total calcium. Potassium molar conc 3.7 mmol/L Normal 3.5-5.0 [facility] Sodium 139 mmol/L Normal 132-148 [facility] Remote CBCDIF (for [facility] use o nly)on 08-29-2016 Abs Baso 0.02 k/uL Normal 0.00-0.10 [facility] Abs Tensas 0.52 k/uL Normal 0.00-0.86 [facility] Abs Neut 3.37 k/uL Normal 1.45-7.50 [facility] Basophils/100 WBC Auto (Bld) 0.3 % Normal [facility] Eosinophils 0.10 10*3/uL Normal 0.00-0.45 [facility] Eosinophils/100 leukocytes 1.7 % Normal [facility] Erythrocyte distribution width Auto Ratio (RBC) 18.7 % High 11.5-15.0 [facility] Erythrocytes (RBC) 3.97 10*6/uL Normal 3.90-5.20 [facility] Hematocrit (HCT) 33.0 % Low 36.0-46.0 [facility] Hemoglobin mass conc (Bld) 10.5 g/dL Low 11.5-15.5 [facility] Lymphocytes 1.92 10*3/uL Normal 1.00-4.00 [facility] Lymphocytes/100 leukocytes 32.4 % Normal [facility] MCH 26.4 pG Normal 26.0-34.0 [facility] MCHC mass conc (RBC) 31.8 g/dL Normal 30.5-36.0 [facility] MCV 83.1 fL Normal 80.0-100.0 [facility] Monocytes/100 leukocytes 8.8 % Normal [facility] Neutrophils/100 WBC Auto (Bld) 56.8 % Normal [facility] Platelet mean volume (PMV) 10.0 fL Normal 9.0-12.7 [facility] Platelets 263 10*3/uL Normal 150-400 [facility] WBC (Leukocytes) 5.93 10*3/uL Normal 3.70-11.00 [facility] Remote iSTAT BMP (for [facility] us e only)on 08-29-2016 Anion gap 12 mmol/L Normal 0-15 [facility] BUN (urea nitrogen) 12 mg/dL Normal 8-25 [facility] Chloride 104 mmol/L Normal 98-110 [facility] CO2 24 mmol/L Normal 23-32 [facility] Creatinine 0.80 mg/dL Normal 0.70-1.40 [facility] eGFR (non-black) mL/min/{1.73_m2} Normal [facility] Comment on above: Result Comment: eGFR [...] Glucose mass conc 91 mg/dL Normal 65-100 [facility] Ionized Calcium, WB 1.14 mmol/L Normal 1.08-1.30 [facility] Comment on above: Result Comment: Plea se note: This value represents ionized calcium not total calcium. Potassium molar conc 3.7 mmol/L Normal 3.5-5.0 [facility] Sodium 140 mmol/L Normal 132-148 [facility] Vital Signs Date Time Vital Sign Value Performing Clinician Facility 05-06-2024 09:41-0400 Body height 165.1 cm Raulito Jimenez DO Work Phone: [facility] 05-06-2024 09:41-0400 Body mass index (BMI) [Ratio] 31.62 kg/m2 Raulito Jimenez DO Work Phone: [facility] 05-06-2024 09:41-0400 Body temperature 98.2 [degF] Raulito Jimenez DO Work Phone: [facility] 05-06-2024 09:41-0400 Body weight 86.18 kg Raulito Jimenez DO Work Phone: [facility] 05-06-2024 09:41-0400 Diastolic blood pressure 78 mm[Hg] Raulito Jimenez DO Work Phone: [facility] 05-06-2024 09:41-0400 Heart rate 110 /min Raulito Jimenez DO Work Phone: [facility] 05-06-2024 09:41-0400 SaO2% (BldA) [Mass fraction] 98 % Raulito Jimenez DO Work Phone: [facility] 05-06-2024 09:41-0400 Systolic blood pressure 138 mm[Hg] Raulito Jimenez DO Work Phone: [facility] 04-26-2024 10:26-0400 Body mass index (BMI) [Ratio] 30.65 kg/m2 Parish Courtney DO Work Phone: [facility] 04-26-2024 10:26-0400 Body weight 83.55 kg Parish Courtney DO Work Phone: [facility] 04-26-2024 10:26-0400 Diastolic blood pressure 76 mm[Hg] Parish Courtney DO Work Phone: [facility] 04-26-2024 10:26-0400 Systolic blood pressure 122 mm[Hg] Parish Courtney DO Work Phone: [facility] 04-19-2024 13:13-0400 Body temperature 99.19 [degF] Wl 1 [facility] 04-19-2024 13:13-0400 Diastolic blood pressure 79 mm[Hg] Wl 1 [facility] 04-19-2024 13:13-0400 Heart rate 96 /min Wl 1 [facility] 04-19-2024 13:13-0400 Respiratory rate 20 /min Wl 1 [facility] 04-19-2024 13:13-0400 Systolic blood pressure 116 mm[Hg] Wl 1 [facility] 04-19-2024 10:41-0400 Body mass index (BMI) [Ratio] 30.63 kg/m2 [facility] 1 [facility] 04-19-2024 10:41-0400 Body weight 83.5 kg [facility] 1 [facility] 04-19-2024 09:53-0400 Body height 165.1 cm Sharda Montiel MD Work Phone: [facility] 04-19-2024 09:53-0400 Body mass index (BMI) [Ratio] 30.62 kg/m2 Sharda Montiel MD Work Phone: [facility] 04-19-2024 09:53-0400 Body weight 83.46 kg Sharda Montiel MD Work Phone: [facility] 04-19-2024 09:53-0400 Diastolic blood pressure 86 mm[Hg] Sharda Montiel MD Work Phone: [facility] 04-19-2024 09:53-0400 Systolic blood pressure 140 mm[Hg] Sharda Montiel MD Work Phone: [facility] 04-14-2024 14:33-0500 Body mass index (BMI) [Ratio] 30.42 kg/m2 Parish Courtney DO Work Phone: [facility] 04-14-2024 14:33-0500 Body weight 82.92 kg Parish Courtney DO Work Phone: [facility] 04-14-2024 14:33-0500 Diastolic blood pressure 72 mm[Hg] Parish Courtney DO Work Phone: [facility] 04-14-2024 14:33-0500 Systolic blood pressure 122 mm[Hg] Parish Courtney DO Work Phone: [facility] 03-17-2024 10:51-0500 Body mass index (BMI) [Ratio] 29.31 kg/m2 Yaquelin Horne PA Work Phone: [facility] 03-17-2024 10:51-0500 Body weight 79.89 kg Yaquelin Horne PA Work Phone: [facility] 03-17-2024 10:51-0500 Diastolic blood pressure 70 mm[Hg] Yaquelin Horne PA Work Phone: [facility] 03-17-2024 10:51-0500 Systolic blood pressure 116 mm[Hg] Yaquelin Horne PA Work Phone: [facility] 03-08-2024 12:30-0500 Body temperature 99.81 [degF] Wlc 1 [facility] [employer] [facility] 03-08-2024 12:30-0500 Diastolic blood pressure 69 mm[Hg] Wlc 1 [facility] 03-08-2024 12:30-0500 Heart rate 103 /min Wlc 1 [facility] 03-08-2024 12:30-0500 Respiratory rate 18 /min Wlc 1 [facility] [employer] [facility] 03-08-2024 12:30-0500 Systolic blood pressure 109 mm[Hg] Wlc 1 [facility] 03-08-2024 10:10-0500 Body mass index (BMI) [Ratio] 29.62 kg/m2 Wlc 1 [facility] 03-08-2024 10:10-0500 Body weight 80.74 kg Wlc 1 [facility] 02-18-2024 11:43-0500 Body mass index (BMI) [Ratio] 29.29 kg/m2 Parish Courtney DO Work Phone: [facility] 02-18-2024 11:43-0500 Body weight 79.83 kg Parish Courtney DO Work Phone: [facility] 02-18-2024 11:43-0500 Diastolic blood pressure 72 mm[Hg] Parish Courtney DO Work Phone: [facility] 02-18-2024 11:43-0500 Systolic blood pressure 122 mm[Hg] Parish Courtney DO Work Phone: [facility] 12-12-2023 11:50-0400 Body temperature 98.91 [degF] Wlc 2 [facility] 12-12-2023 11:50-0400 Diastolic blood pressure 66 mm[Hg] Wlc 2 [facility] 12-12-2023 11:50-0400 Heart rate 92 /min Wlc 2 [facility] 12-12-2023 11:50-0400 Respiratory rate 18 /min Wlc 2 [facility] 12-12-2023 11:50-0400 Systolic blood pressure 100 mm[Hg] Wlc 2 [facility] 12-12-2023 10:31-0400 Body mass index (BMI) [Ratio] 27.96 kg/m2 Wl 2 [facility] 12-12-2023 10:31-0400 Body weight 76.2 kg Wlc 2 [facility] 12-01-2023 14:25-0400 Body height 165.1 cm Dominique Josh HERNANDEZN-SMOG TECHNICIAN Work Phone: [facility] 12-01-2023 14:25-0400 Body mass index (BMI) [Ratio] 27.89 kg/m2 Dominique Josh HERNANDEZN-SMOG TECHNICIAN Work Phone: [facility] 12-01-2023 14:25-0400 Body temperature 98.8 [degF] Dominique Josh HERNANDEZN-SMOG TECHNICIAN Work Phone: [facility] 12-01-2023 14:25-0400 Body weight 76.02 kg Dominique Josh HERNANDEZN-SMOG TECHNICIAN Work Phone: [facility] 12-01-2023 14:25-0400 Diastolic blood pressure 76 mm[Hg] Dominique Josh [employer]IN [employer]-SMOG TECHNICIAN Work Phone: [facility] 12-01-2023 14:25-0400 Heart rate 71 /min Dominique Josh [employer]IN [employer]-SMOG TECHNICIAN Work Phone: [facility] 12-01-2023 14:25-0400 Respiratory rate 16 /min Dominique Josh [employer]-SMOG TECHNICIAN Work Phone: [facility] 12-01-2023 14:25-0400 SaO2% (BldA) [Mass fraction] 99 % Dominique Josh [employer]-SMOG TECHNICIAN Work Phone: [facility] [facility] 12-01-2023 14:25-0400 Systolic blood pressure 111 mm[Hg] Dominique Josh MAIN ENTREE COOK AND CASHIER-SMOG TECHNICIAN Work Phone: [facility] 10-31-2023 11:13-0400 Body temperature 98.6 [degF] [facility] 2 [facility] 10-31-2023 11:13-0400 Diastolic blood pressure 72 mm[Hg] [facility] 2 [facility] 10-31-2023 11:13-0400 Heart rate 85 /min [facility] 2 [facility] 10-31-2023 11:13-0400 Respiratory rate 18 /min [facility] 2 [facility] 10-31-2023 11:13-0400 Systolic blood pressure 112 mm[Hg] [facility] 2 [facility] 10-31-2023 09:51-0400 Body mass index (BMI) [Ratio] 27.81 kg/m2 [facility] 2 [facility] 10-31-2023 09:51-0400 Body weight 75.8 kg [facility] 2 [facility] 10-31-2023 08:50-0400 Body height 165.1 cm Sharda Montiel MD Work Phone: [facility] 10-31-2023 08:50-0400 Body mass index (BMI) [Ratio] 27.79 kg/m2 Sharda Montiel MD Work Phone: [facility] 10-31-2023 08:50-0400 Body weight 75.75 kg Sharda Montiel MD Work Phone: [facility] 10-31-2023 08:50-0400 Diastolic blood pressure 60 mm[Hg] Sharda Montiel MD Work Phone: [facility] 10-31-2023 08:50-0400 Systolic blood pressure 100 mm[Hg] Sharda Montiel MD Work Phone: [facility] 09-17-2023 09:46-0400 Body mass index (BMI) [Ratio] 27.06 kg/m2 Hilary Aviles MAIN ENTREE COOK AND CASHIER-SMOG TECHNICIAN Work Phone: [facility] 09-17-2023 09:46-0400 Body temperature 98.2 [degF] Hilary Aviles MAIN ENTREE COOK AND CASHIER-SMOG TECHNICIAN Work Phone: [facility] 09-17-2023 09:46-0400 Body weight 73.75 kg Hilary Ruizsler MAIN ENTREE COOK AND CASHIER-SMOG TECHNICIAN Work Phone: [facility] 09-17-2023 09:46-0400 Diastolic blood pressure 60 mm[Hg] Hilary Aviles MAIN ENTREE COOK AND CASHIER-SMOG TECHNICIAN Work Phone: [facility] 09-17-2023 09:46-0400 Heart rate 75 /min Hilary Aviles MAIN ENTREE COOK AND CASHIER-SMOG TECHNICIAN Work Phone: [facility] 09-17-2023 09:46-0400 SaO2% (BldA) [Mass fraction] 97 % Hilayr Aviles MAIN ENTREE COOK AND CASHIER-SMOG TECHNICIAN Work Phone: [facility] 09-17-2023 09:46-0400 Systolic blood pressure 98 mm[Hg] Hilary Aviles MAIN ENTREE COOK AND CASHIER-SMOG TECHNICIAN Work Phone: [facility] 09-15-2023 12:10-0400 Body temperature 98.71 [degF] Wl 3 [facility] 09-15-2023 12:10-0400 Diastolic blood pressure 70 mm[Hg] [facility] 3 [facility] 09-15-2023 12:10-0400 Heart rate 75 /min [facility] 3 [facility] 09-15-2023 12:10-0400 Respiratory rate 20 /min [facility] 3 [facility] 09-15-2023 12:10-0400 Systolic blood pressure 117 mm[Hg] [facility] 3 [facility] 09-15-2023 10:43-0400 Body mass index (BMI) [Ratio] 26.89 kg/m2 [address] 09-15-2023 10:43-0400 Body weight 73.[address] 08-20-2023 14:15-0400 Body height 165.1 cm Hilary Aviles APRN-SMOG TECHNICIAN Work Phone: [facility] 08-20-2023 14:15-0400 Body mass index (BMI) [Ratio] 26.36 kg/m2 Hilary Aviles APRN-SMOG TECHNICIAN Work Phone: [facility] 08-20-2023 14:15-0400 Body temperature 98.6 [degF] Hilary Traci MAIN ENTREE COOK AND CASHIER-SMOG TECHNICIAN Work Phone: [facility] 08-20-2023 14:15-0400 Body weight 71.85 kg Hilary Aviles MAIN ENTREE COOK AND CASHIER-SMOG TECHNICIAN Work Phone: [facility] 08-20-2023 14:15-0400 Diastolic blood pressure 72 mm[Hg] Hilary Aviles APRN-SMOG TECHNICIAN Work Phone: [facility] 08-20-2023 14:15-0400 Heart rate 87 /min Hilary Aviles MAIN ENTREE COOK AND CASHIER-SMOG TECHNICIAN Work Phone: [facility] 08-20-2023 14:15-0400 SaO2% (BldA) [Mass fraction] 97 % Hilary Aviles MAIN ENTREE COOK AND CASHIER-SMOG TECHNICIAN Work Phone: [facility] 08-20-2023 14:15-0400 Systolic blood pressure 116 mm[Hg] Hilary Aviles APRN-SMOG TECHNICIAN Work Phone: [facility] 08-04-2023 14:48-0400 Body temperature 98.2 [degF] [facility] 2 [facility] 08-04-2023 14:48-0400 Diastolic blood pressure 77 mm[Hg] [facility] 2 [facility] 08-04-2023 14:48-0400 Heart rate 76 /min Wl 2 [facility] 08-04-2023 14:48-0400 Respiratory rate 20 /min Wl 2 [facility] 08-04-2023 14:48-0400 Systolic blood pressure 118 mm[Hg] [facility] 2 [facility] 08-04-2023 13:22-0400 Body mass index (BMI) [Ratio] 27.19 kg/m2 [facility] 2 [facility] 08-04-2023 13:22-0400 Body weight 74.12 kg [facility] 2 [facility] 04-21-2023 13:05-0400 Body temperature 97.81 [degF] [facility] 4 [facility] 04-21-2023 13:05-0400 Diastolic blood pressure 75 mm[Hg] [facility] 4 [facility] 04-21-2023 13:05-0400 Heart rate 78 /min [facility] 4 [facility] 04-21-2023 13:05-0400 Respiratory rate 20 /min [facility] 4 [facility] 04-21-2023 13:05-0400 Systolic blood pressure 117 mm[Hg] [facility] 4 [facility] 04-21-2023 10:29-0400 Body mass index (BMI) [Ratio] 27.89 kg/m2 [facility] 4 [facility] 04-21-2023 10:29-0400 Body weight 76.02 kg [facility] 4 [facility] 02-20-2023 11:48-0500 Body height 165.1 cm Lyndsey Anders MD Work Phone: [facility] 02-20-2023 11:48-0500 Body mass index (BMI) [Ratio] 27.46 kg/m2 Lyndsey Anders MD Work Phone: [facility] 02-20-2023 11:48-0500 Body temperature 98.91 [degF] Lyndsey Anders MD Work Phone: [facility] 02-20-2023 11:48-0500 Body weight 74.84 kg Lyndsey Anders MD Work Phone: [facility] 02-20-2023 11:48-0500 Diastolic blood pressure 72 mm[Hg] Lyndsey Anders MD Work Phone: [facility] 02-20-2023 11:48-0500 Heart rate 104 /min Lyndsey Anders MD Work Phone: [facility] 02-20-2023 11:48-0500 SaO2% (BldA) [Mass fraction] 99 % Lyndsey Anders MD Work Phone: [facility] 02-20-2023 11:48-0500 Systolic blood pressure 114 mm[Hg] Lyndsey Anders MD Work Phone: [facility] 02-17-2023 14:26-0500 Body temperature 99.1 [degF] [address] 02-17-2023 14:26-0500 Diastolic blood pressure 77 mm[Hg] [address] 02-17-2023 14:26-0500 Heart rate 100 /min [address] 02-17-2023 14:26-0500 SaO2% (BldA) [Mass fraction] 97 % [address] 02-17-2023 14:26-0500 Systolic blood pressure 117 mm[Hg] [address] 02-17-2023 11:45-0500 Body mass index (BMI) [Ratio] 27.69 kg/m2 [address] 02-17-2023 11:45-0500 Body weight 75.[address] 02-17-2023 11:45-0500 Respiratory rate 20 /min Wlc 3 [facility] 02-06-2023 12:54-0500 Diastolic blood pressure 69 mm[Hg] Pfo 3 [facility] 02-06-2023 12:54-0500 Heart rate 92 /min Pfo 3 [facility] 02-06-2023 12:54-0500 Respiratory rate 18 /min Pfo 3 [facility] 02-06-2023 12:54-0500 SaO2% (BldA) [Mass fraction] 100 % Pfo 3 [facility] 02-06-2023 12:54-0500 Systolic blood pressure 104 mm[Hg] Pfo 3 [facility] 02-06-2023 11:37-0500 Body height 165.1 cm Pfo 3 [facility] 02-06-2023 11:37-0500 Body mass index (BMI) [Ratio] 27.46 kg/m2 Pfo 3 [facility] 02-06-2023 11:37-0500 Body temperature 98.4 [degF] Pfo 3 [facility] 02-06-2023 11:37-0500 Body weight 74.84 kg Pfo 3 [facility] Encounters Encounter Date Encounter Type Care Provider Facility Start: 05-08-2024 End: 05-08-2024 Clinisync Result Encounter Parish Valdez DO Work Phone: [facility] External Department Unsolicited Start: 05-08-2024 End: 05-08-2024 Clinisync Result Encounter Parish Courtney DO Work Phone: [facility] External Department Unsolicited Start: 05-06-2024 End: 05-06-2024 ambulatory [place] [facility] Start: 05-06-2024 End: 05-06-2024 Office outpatient visit 25 minutes Raulito Jimenez DO Work Phone: [facility] Comment on above: HTN complicating per ipregnancy, antepartum, second trimester (Primary Dx); 26 weeks gestation of ; Anemia affecting fourth ; HTN, goal below 130/80 Start: 05-04-2024 End: 05-04-2024 Chart abstracting Deepthi Tomas MD Work Phone: [facility] Start: 04-26-2024 End: 04-26-2024 Bamboo flowsheet [...] Orders Only Sharda Montiel MD Work Phone: [facility] Comment on above: Ulcerative colitis w ith other complication, unspecified location (CMS-HCC) (Primary Dx) Start: 04-22-2024 End: 04-22-2024 Orders Only Sharda Montiel MD Work Phone: [facility] Comment on above: Crohn's disease of c olon with other complication ([facility]-HCC) (Primary Dx) Start: 04-21-2024 End: 04-21-2024 ambulatory YAQUELIN HORNE Not Available Start: 04-20-2024 End: 04-20-2024 Orders Only Sharda Montiel MD Work Phone: [facility], A Department of [facility] Start: 04-19-2024 End: 04-21-2024 Telephone encounter Sharda Montiel MD Work Phone: [facility] Start: 04-19-2024 End: 04-19-2024 ambulatory [place] [facility] Start: 04-19-2024 End: 04-19-2024 Office outpatient visit 40 minutes Sharda Montiel MD [facility] Phone[facility] Comment on above: Thrombocytopenia (CM S-HCC) (Primary Dx); Crohn's disease with complication, unspecified gastrointestinal tract location (CMS-HCC) Start: 04-19-2024 End: 04-19-2024 ambulatory [facility] 1 [facility] Comment on above: Crohn's [...] Department Unsolicited Start: 03-08-2024 End: 03-08-2024 ambulatory [facility] Infusion Chair 1 [facility] Comment on [...] 01-31-2024 End: 01-31-2024 Emergency department patient visit [facility] Start: 01-26-2024 End: 01-26-2024 ambulatory [facility] Start: 01-26-2024 End: 01-26-2024 ambulatory [facility] Start: 01-23-2024 End: 01-23-2024 ambulatory YAQUELIN HORNE Not Available Start: 01-23-2024 End: 01-23-2024 Office outpatient visit 5 minutes [facility] Courtney Nurse [facility] Comment on above: GA: 11w2d Start: 01-13-2024 End: 01-13-2024 Orders Only Dominique Moya MAIN ENTREE COOK AND CASHIER-SMOG TECHNICIAN Work Phone: [facility] - [facility] Comment on above: Iron deficiency anem ia due to chronic blood loss (Primary Dx); Iron malabsorption; Iron deficiency anemia, unspecified Start: 01-06-2024 End: 01-06-2024 Orders Only Dominique Moya MAIN ENTREE COOK AND CASHIER-SMOG TECHNICIAN Work Phone: Ally Richey [facility] - [facility] Comment on above: Iron deficiency anem ia due to chronic blood loss (Primary Dx); Iron malabsorption; Iron deficiency anemia, unspecified Start: 01-03-2024 End: 01-03-2024 Emergency department patient visit [facility] Start: 12-17-2023 End: 12-18-2023 Telephone encounter Raf Zarco RN [facility] Start: 12-12-2023 End: 12-12-2023 ambulatory [facility] 2 [facility] Comment on above: Crohn's disease of b oth small and large intestine with intestinal obstruction (CMS-HCC) (Primary Dx) Start: 12-01-2023 End: 12-01-2023 Office outpatient visit 25 minutes Dominique Magen Josh MAIN ENTREE COOK AND CASHIER-SMOG TECHNICIAN Work Phone: Ally Richey [facility] - [facility] Comment on above: Iron deficiency (Ping hussein Dx); Crohn's disease of both small and large intestine with intestinal obstruction (CMS-HCC); Chronic fatigue; Leg cramps; Noncompliance; Iron deficiency anemia due to chronic blood loss; Iron malabsorption; Iron deficiency anemia, unspecified Start: 12-01-2023 End: 12-01-2023 ambulatory DOMINIQUECHET MOYA [facility] Start: 12-01-2023 End: 12-01-2023 ambulatory MJ PIZARRO [facility] Start: 10-31-2023 End: 10-31-2023 Office outpatient visit 25 minutes Sharda Montiel MD Work Phone: [facility] Comment on above: Therapeutic drug mon itoring (Primary Dx); Crohn's disease of both small and large intestine with other complication (CMS-HCC) Start: 10-31-2023 End: 10-31-2023 ambulatory [facility] In[facility] 2 [facility] Comment on above: Crohn's disease of b oth small and large intestine with intestinal obstruction (CMS-HCC) (Primary Dx) Start: 09-17-2023 End: 09-17-2023 ambulatory [facility] Start: 09-17-2023 End: 09-17-2023 Office outpatient visit 25 minutes Hilary Aviles MAIN ENTREE COOK AND CASHIER-SMOG TECHNICIAN Work Phone: [facility] Comment on above: Current moderate epi sode of major depressive disorder without prior episode (CMS-HCC) (Primary Dx); Crohn's disease of both small and large intestine with intestinal obstruction (CMS-HCC) Start: 09-15-2023 End: 09-16-2023 Telephone encounter Sharda Montiel MD Work Phone: [facility] Start: 09-15-2023 End: 09-15-2023 ambulatory [facility] In[facility] 3 [facility] Comment on above: Crohn's disease of b oth small and large intestine with intestinal obstruction (CMS-HCC) (Primary Dx) Start: 09-03-2023 End: 09-03-2023 Telephone encounter Hilary Aviles MAIN ENTREE COOK AND CASHIER-SMOG TECHNICIAN Work Phone: [facility] Start: 09-03-2023 End: 09-03-2023 ambulatory [facility] Start: 09-03-2023 End: 09-03-2023 Phys/qhp telephone evaluation 11-20 min Hilary Aviles MAIN ENTREE COOK AND CASHIER-SMOG TECHNICIAN Work Phone: [facility] Comment on above: Reactive depression (Primary Dx) Start: 08-20-2023 End: 08-20-2023 ambulatory [facility] Start: 08-20-2023 End: 08-20-2023 Office outpatient visit 25 minutes Hilary Aviles MAIN ENTREE COOK AND CASHIER-SMOG TECHNICIAN Work Phone: [facility] Comment on above: Anxiety (Primary Dx) Start: 08-04-2023 End: 08-04-2023 ambulatory [facility] Infusion Chair 2 [facility] [...] [facility] Start: 04-21-2023 End: 04-21-2023 ambulatory [facility] Infusion [facility] 4 [facility] Comment on above: Crohn's disease of b oth small and large intestine with intestinal obstruction (CMS-HCC) (Primary Dx) Start: 04-14-2023 Telephone encounter Nic Quintana [facility] Start: 03-31-2023 Telephone encounter Nic Quintana [facility] Start: 03-19-2023 End: 03-19-2023 ambulatory LYNDSEY ANDERS [facility] Start: 02-20-2023 End: 02-20-2023 Office outpatient visit 25 minutes Lyndsey Anders MD Work Phone: [facility] Comment on above: Reactive airway dise ase with acute exacerbation, unspecified asthma severity, unspecified whether persistent (Primary Dx); Shortness of breath; COVID-19; Sinusitis, unspecified chronicity, unspecified location Start: 02-17-2023 End: 02-17-2023 ambulatory [facility] Chair 3 [facility] Comment on above: Crohn's disease of b oth small and large intestine with intestinal obstruction (CMS-HCC) (Primary Dx) Start: 02-06-2023 End: 02-06-2023 ambulatory MJ PIZARRO [facility] Comment on above: Iron deficiency anem ia due to chronic blood loss (Primary Dx); Iron deficiency anemia, unspecified; Iron malabsorption Start: 04-30-2022 End: 04-30-2022 ambulatory SEBASTIAN HERRING Facility: Start: 12-03-2016 End: 12-04-2016 Ambulatory SAMARA HERNANDEZ [facility] Start: 11-19-2016 End: 11-26-2016 Ambulatory SAMARA HERNANDEZ [facility] Start: 10-29-2016 End: 10-30-2016 Ambulatory SAMARA HERNANDEZ [facility] Start: 10-01-2016 End: 10-01-2016 Ambulatory SAMARA HERNANDEZ [facility] Start: 08-29-2016 End: 08-29-2016 Ambulatory SAMARA HERNANDEZ [facility] Procedures Date Procedure Procedure Detail [...] Adult depression scr eening assessment Hilary Aviles MAIN ENTREE COOK AND CASHIER-SMOG TECHNICIAN Work Phone: Start: 09-17-2023 Microscopic observat ion [Identifier] in Cervix by Cyto stain Sharda Montiel MD Work Phone: Start: 08-20-2023 Adult depression scr eening assessment Hilary Aviles MAIN ENTREE COOK AND CASHIER-SMOG TECHNICIAN Work Phone: Start: 11-23-2020 Adult depression scr eening assessment Pfo 3 Plan of Treatment Date Care Activity Detail Author Start: 09-16-2026 Screening for malign ant neoplasm of cervix Pap Smear [facility] Start: 05-06-2025 Adult BMI Screening Adult BMI Screen ing [facility] Start: 05-06-2025 Depression Screening Depression Scre ening [facility] Start: 05-06-2025 Tobacco Screening Tobacco Screening [facility] Start: 04-19-2025 Adult BMI Screening Adult BMI Screen ing [facility] Start: 04-19-2025 Tobacco Screening [facility] Start: 01-30-2025 Adult BMI Screening Adult BMI Screen ing [facility] Start: 01-30-2025 Tobacco Screening Tobacco Screening [facility] Start: 01-02-2025 Adult BMI Screening Adult BMI Screen ing [facility] Start: 01-02-2025 Tobacco Screening Tobacco Screening [facility] Start: 12-11-2024 Adult BMI Screening Adult BMI Screen ing [facility] Start: 12-02-2024 End: 12-02-2024 Patient encounter procedure 12/02/2024 10:15 AM EDT Office Visit Ally Lovell [facility] - [facility] [address] [place] [id number] Mj Pizarro MD [address] [place] [address] [address] [place] [address] Ally Lovell [facility] Start: 10-30-2024 Adult BMI Screening Adult BMI Screen ing [facility] Start: 10-30-2024 Tobacco Screening Tobacco Screening [facility] Start: 09-16-2024 Adult BMI Screening Adult BMI Screen ing [facility] Start: 09-16-2024 Depression Screening Depression Scre ening [facility] Start: 09-16-2024 Tobacco Screening [facility] Start: 09-14-2024 Adult BMI Screening Adult BMI Screen ing [facility] Start: 09-02-2024 Tobacco Screening Tobacco Screening [facility] Start: 08-19-2024 Adult BMI Screening Adult BMI Screen ing [facility] Start: 08-19-2024 Depression Screening Depression Scre ening [facility] Start: 08-19-2024 Tobacco Screening Tobacco Screening [facility] Start: 08-03-2024 Adult BMI Screening Adult BMI Screen ing [facility] Start: 06-28-2024 End: 06-28-2024 ambulatory 06/28/2024 10:30 AM EDT Infusion [facility] [address] [place] [phone] [facility] Start: 06-02-2024 End: 06-02-2024 Patient encounter procedure 06/02/2024 8:45 AM EDT Office Visit [facility] [address] [place] [phone] Deepthi Tomas MD [address] [facility] [address] [place] [address] [facility] Start: 06-02-2024 End: 06-02-2024 Patient encounter procedure 06/02/2024 7:30 AM EDT Appointment [facility] [address] [place] [address] [facility] Start: 05-31-2024 End: 05-31-2024 ambulatory 05/31/2024 10:00 AM EDT Infusion [facility] [address] [place] [phone] [facility] Start: 05-24-2024 End: 05-24-2024 ambulatory 05/24/2024 10:30 AM EDT Infusion [facility] [address] [place] [phone] [facility] Start: 05-12-2024 End: 05-12-2024 Patient encounter procedure 05/12/2024 2:30 PM EDT Routine [facility] [address] [place] [phone] Yaquelin Horne PA [address] [place] [address] [facility] Start: 05-06-2024 End: 05-06-2025 Echo complete W/O contrast Echo complete W/O contrast Echocardiography Routine HTN complicating peripregnancy, antepartum, second trimester 26 weeks gestation of Expected: 05/06/2024, Expires: 05/06/2025 Ansible Work Phone: Comment on above: Expected: 05/06/2024 , Expires: 05/06/2025 Start: 04-26-2024 End: 04-26-2024 Patient encounter procedure 04/26/2024 10:10 AM EDT Office Visit [facility] [address] [place] [id number] Parish Valdez DO [address] [place] [address] Arrived [facility] [facility] Comment on above: Arrived Start: 04-21-2024 End: 04-21-2024 Professional / ancillary services management 04/21/2024 11:00 AM EDT Ancillary Procedure [facility] [address] [place] [phone] [facility] Start: 04-20-2024 Adult BMI Screening Adult BMI Screen ing [facility] [employer] [facility] Start: 04-19-2024 End: 04-19-2025 Cyanocobalamin vitamin b-12 Vitamin B12 Lab Routine Crohn's disease with complication, unspecified gastrointestinal tract location ([facility]) Expected: 04/19/2024, Expires: 04/19/2025 [facility] Comment on above: Expected: 04/19/2024 , Expires: 04/19/2025 Start: 04-19-2024 End: 04-19-2024 ambulatory 04/19/2024 10:30 AM EDT Infusion [facility] [address] [facility] [place] [facility] [place] [address] [place] [phone] [facility] Start: 04-19-2024 End: 04-19-2024 Patient encounter procedure [facility] Start: 04-14-2024 End: 04-14-2025 CBC panel - Blood by Automated count CBC Lab Routine Diabetes mellitus screening Expected: 04/14/2024 (Approximate), Expires: 04/14/2025 [facility] Work Phone: Comment on above: Expected: 04/14/2024 (Approximate), Expires: 04/14/2025 Start: 04-14-2024 End: 04-14-2025 Measurement of glucose 1 hour after glucose challenge for glucose tolerance test Glucose tolerance, 1 hour Lab Routine Diabetes mellitus screening Expected: 04/14/2024 (Approximate), Expires: 04/14/2025 [facility] Comment on above: Expected: 04/14/2024 (Approximate), Expires: 04/14/2025 Start: 04-14-2024 End: 04-14-2024 Patient encounter procedure 04/14/2024 1:40 PM EST Routine [facility] [address] [place] [phone] Parish Valdez, [address] [place] [address] [facility] Start: 03-17-2024 End: 09-14-2024 Alpha fetoprotein, maternal Alpha fetoprotein, maternal Lab Routine Second trimester 19 weeks gestation of Expected: 03/17/2024 (Approximate), Expires: 09/14/2024 [facility] Comment on above: Expected: 03/17/2024 (Approximate), Expires: 09/14/2024 Start: 03-17-2024 End: 03-17-2025 US for US OB 14+ weeks anatomy scan Imaging Routine Screening, , for anatomic survey Expected: 03/17/2024, Expires: 03/17/2025 [facility] Comment on above: Expected: 03/17/2024 , Expires: 03/17/2025 Start: 03-17-2024 End: 03-17-2024 Patient encounter procedure 03/17/2024 10:30 AM EST Routine [facility] [address] [place] [phone] Yaquelin Horne PA [address] [place] [address] [facility] Start: 03-08-2024 End: 03-08-2024 ambulatory 03/08/2024 10:00 AM EST Infusion [facility] [address] [facility] [place] [phone] [facility] Start: 02-21-2024 Adult BMI Screening Adult BMI Screen ing [facility] Start: 02-21-2024 Tobacco Screening Tobacco Screening [facility] Start: 02-18-2024 Adult BMI Screening Adult BMI Screen ing [facility] Start: 02-18-2024 End: 02-18-2024 Patient encounter procedure 02/18/2024 11:30 AM EST Routine [facility] [address] [place] [phone] Parish Valdez DO [address] [place] [address] [facility] Start: 02-07-2024 Tobacco Screening Tobacco Screening [facility] Start: 01-31-2024 Adult BMI Screening Adult BMI Screen ing [facility] Start: 01-31-2024 Tobacco Screening Tobacco Screening [facility] Start: 01-26-2024 End: 01-26-2024 ambulatory 01/26/2024 10:00 AM EST Infusion [facility] [address] [place] [phone] [facility] Start: 01-23-2024 End: 01-22-2025 ABO/Rh ABO/Rh Lab Routine Missed menses , unspecified gestational age Expected: 01/23/2024 (Approximate), Expires: 01/22/2025 [facility] Comment on above: Expected: 01/23/2024 (Approximate), Expires: 01/22/2025 Start: 01-23-2024 End: 01-22-2025 Blood type and Indirect antibody screen panel - Blood Type and screen Lab Routine Missed menses , unspecified gestational age Expected: 01/23/2024 (Approximate), Expires: 01/22/2025 [facility] Work Phone: Comment on above: Expected: 01/23/2024 (Approximate), Expires: 01/22/2025 Start: 01-23-2024 End: 01-22-2025 Drugs of abuse panel - Urine by Screen method Rapid drug screen, urine Lab Routine , unspecified gestational age Encounter for supervision of normal first in first trimester Expected: 01/23/2024 (Approximate), Expires: 01/22/2025 [facility] Comment on above: Expected: 01/23/2024 (Approximate), Expires: 01/22/2025 Start: 01-23-2024 End: 01-22-2025 US Pelvis transvaginal US OB transvaginal Imaging Routine Missed menses Expected: 01/23/2024 (Approximate), Expires: 01/22/2025 [facility] Comment on above: Expected: 01/23/2024 (Approximate), Expires: 01/22/2025 Start: 12-22-2023 End: 12-22-2023 Patient encounter procedure 12/22/2023 3:40 PM EST Office Visit [facility] [address] [place] [address] [place] [address] Hilary Aviles, MAIN ENTREE COOK AND CASHIER-SMOG TECHNICIAN [address], [place] [address] [facility] Start: 12-12-2023 End: 12-12-2023 ambulatory 12/12/2023 10:00 AM EDT Infusion [facility] [address] [facility] [place] [phone] [facility] Start: 11-20-2023 End: 11-20-2023 Patient encounter procedure 11/20/2023 1:00 PM EDT Office Visit [facility] [address] [place] [phone] Mj Pizarro MD [address] [place] [address] [address] [place] [phone] [facility] Start: 11-19-2023 End: 11-19-2023 Patient encounter procedure 11/19/2023 9:40 AM EDT Office Visit [facility] [address] [place] [address] [place] [phone] Hilary Aviles, MAIN ENT[employer] COOK AND CASHIER-SMOG TECHNICIAN [address], [place] [address] [facility] Start: 10-31-2023 End: 10-30-2024 C-reactive protein C-reactive protein Lab Routine Crohn's disease of both small and large intestine with other complication ([facility]) Expected: 10/31/2023, Expires: 10/30/2024 [facility] Comment on above: Expected: 10/31/2023 , Expires: 10/30/2024 Start: 10-31-2023 End: 10-30-2024 Cyanocobalamin vitamin b-12 Vitamin B12 Lab Routine Crohn's disease of both small and large intestine with other complication ([facility]) Expected: 10/31/2023, Expires: 10/30/2024 [facility] Comment on above: Expected: 10/31/2023 , Expires: 10/30/2024 Start: 10-31-2023 End: 10-30-2024 Erythrocyte sedimentation rate Erythrocyte Sedimentation Rate (ESR) Lab Routine Crohn's disease of both small and large intestine with other complication (CMS-HCC) Expected: 10/31/2023, Expires: 10/30/2024 [facility] Comment on above: Expected: 10/31/2023 , Expires: 10/30/2024 Start: 10-31-2023 End: 10-31-2023 ambulatory 10/31/2023 9:30 AM EDT Infusion [facility] [address] [facility] [place] [facility] [place] [address] [place] [address] [facility] Start: 10-31-2023 End: 10-31-2023 Patient encounter procedure 10/31/2023 9:00 AM EDT Office Visit [facility] [address] [facility] [place] [facility] [place] [address] [place] [phone] Sharda Montiel MD [address] [facility], [address] [place] [address] [facility] Start: 10-27-2023 End: 10-27-2023 ambulatory 10/27/2023 12:00 PM EDT Infusion [facility] [address] [facility] [place] [place] [facility] [place] [address] [place] [address] [facility] Start: 10-27-2023 End: 10-27-2023 Patient encounter procedure 10/27/2023 11:30 AM EDT Office Visit [facility] [address] [facility] [place] [place] [address] [place] [address] Sharda Montiel MD [address] [facility], [address] [place] [address] [facility] Start: 10-12-2023 Influenza vaccination Influenza Vacc ine [facility] Start: 09-17-2023 End: 09-17-2023 Patient encounter procedure 09/17/2023 9:20 AM EDT Office Visit [facility] [address] [place] [address] [place] [address] iHlary Aviles, MAIN [employer]NT[employer] COOK AND CASHIER-SMOG TECHNICIAN [address] [facility] [address], [place] [address] [facility] Start: 09-15-2023 End: 09-15-2023 ambulatory 09/15/2023 10:00 AM EDT Infusion [facility] [address] [phone] [facility] Start: 06-17-2023 End: 06-17-2023 Patient encounter procedure 06/17/2023 11:15 AM EDT Office Visit [facility] [address] [place] [phone] Meaghan King PA-C [address] [place] [address] [facility] Start: 06-10-2023 End: 06-10-2023 ambulatory 06/10/2023 10:30 AM EDT Infusion [facility] [address] [place] [phone] [facility] Start: 04-21-2023 End: 04-21-2023 ambulatory 04/21/2023 10:00 AM EDT Infusion [facility] [address] [phone] [facility] Start: 03-31-2023 End: 03-31-2023 ambulatory 03/31/2023 10:00 AM EST Infusion [facility] [address] [phone] [facility] Start: 02-17-2023 End: 02-17-2023 ambulatory 02/17/2023 11:30 AM EST Infusion [facility] [address] [phone] [facility] Start: 10-11-2022 Influenza vaccination Influenza Vacc ine [facility] Start: 11-23-2021 Depression Screening Depression Scre ening [facility] Start: 2010 Screening for malign ant neoplasm of cervix Pap Smear [facility] Start: 2008 DTaP,Tdap and Td Vaccines (1 - Tdap) DTaP,Tdap and Td Vaccines (1 - Tdap) [facility] Start: 11-11-2007 Adult BMI Follow Up Plan Adult BMI F ollow Up Plan [facility] Bacteria identified in Urine by Culture Urine culture Microbiology Routine Missed menses Ordered: 01/23/2024 [facility] Comment on above: Ordered: 01/23/2024 End: 10-30-2024 Basic metabolic 2000 panel - Serum or Plasma Basic Metabolic Panel Lab Routine Therapeutic drug monitoring Crohn's disease of both small and large intestine with other complication ([facility]) 1 Occurrences starting 10/31/2023 until 10/30/2024 [facility] Comment on above: 1 Occurrences starti ng 10/31/2023 until 10/30/2024 End: 10-30-2024 Calprotectin, F Calprotectin, F Lab Routine Crohn's disease of both small and large intestine with other complication ([facility]) 1 Occurrences starting 10/31/2023 until 10/30/2024 [employer] Work Phone: Comment on above: 1 Occurrences starti ng 10/31/2023 until 10/30/2024 End: 04-22-2025 Calprotectin, F Calprotectin, F Lab Routine Crohn's disease of colon with other complication ([facility]) 1 Occurrences starting 04/22/2024 until 04/22/2025 [employer] Work Phone: Comment on above: 1 Occurrences starti ng 04/22/2024 until 04/22/2025 End: 04-23-2025 Calprotectin, F Calprotectin, F Lab Routine Ulcerative colitis with other complication, unspecified location ([facility]) 1 Occurrences starting 04/23/2024 until 04/23/2025 [employer] Work Phone: Comment on above: 1 Occurrences starti ng 04/23/2024 until 04/23/2025 End: 10-30-2024 CBC panel - Blood by Automated count CBC without diff Lab Routine Therapeutic drug monitoring 1 Occurrences starting 10/31/2023 until 10/30/2024 [employer] [facility] Comment on above: 1 Occurrences starti ng 10/31/2023 until 10/30/2024 CBC W Auto Different ial panel - Blood CBC and differential Lab Routine Missed menses , unspecified gestational age Ordered: 01/23/2024 [facility] Comment on above: Ordered: 01/23/2024 End: 04-19-2025 CBC W Auto Differential panel - Blood CBC auto differential Lab Routine Thrombocytopenia ([facility]) 1 Occurrences starting 04/19/2024 until 04/19/2025 [employer] Phone: Comment on above: 1 Occurrences starti ng 04/19/2024 until 04/19/2025 CHLAMYDIA TRACHOMATI S (GENITO/STI) CHLAMYDIA TRACHOMATIS (GENITO/STI) Lab Routine STD exposure Ordered: 03/17/2024 [facility] Comment on above: Ordered: 03/17/2024 Hemoglobin A1c/Hemoglobin.total in Blood Hemoglobin A1c Lab Routine Missed menses , unspecified gestational age Ordered: 01/23/2024 [facility] Comment on above: Ordered: 01/23/2024 Hepatitis B virus surface Ag [Presence] in Serum or Plasma by Immunoassay Hepatitis B surface antigen Lab Routine Missed menses , unspecified gestational age Ordered: 01/23/2024 [facility] Comment on above: Ordered: 01/23/2024 Hepatitis C virus Ab [Presence] in Serum or Plasma by Immunoassay Hepatitis C antibody Lab Routine Missed menses , unspecified gestational age Ordered: 01/23/2024 [facility] Comment on above: Ordered: 01/23/2024 HIV-1/HIV-2 antigen/antibody combination immunoassay HIV-1 and HIV-2 antibodies Lab Routine Missed menses , unspecified gestational age Ordered: 01/23/2024 [facility] Comment on above: Ordered: 01/23/2024 End: 10-30-2024 Liver panel Liver panel Lab Routine Therapeutic drug monitoring Crohn's disease of both small and large intestine with other complication (CMS-HCC) 1 Occurrences starting 10/31/2023 until 10/30/2024 [facility] [employer] [facility] Comment on above: 1 Occurrences starti ng 10/31/2023 until 10/30/2024 End: 06-08-2024 Mycobacterium TB by Quantiferon Gold Mycobacterium TB by Quantiferon Gold Lab Routine Crohn's disease of both small and large intestine with intestinal obstruction ([facility]) 1 Occurrences starting 06/09/2023 until 06/08/2024 [employer] Work Phone: Comment on above: 1 Occurrences starti ng 06/09/2023 until 06/08/2024 Neisseria gonorrhoea e DNA [Presence] in Unspecified specimen by ROBERT with probe detection Neisseria gonorrhea DNA probe, direct Lab Routine STD exposure Ordered: 03/17/2024 [facility] Comment on above: Ordered: 03/17/2024 End: 02-07-2023 Oxygen Therapy - Maintain SpO2: 90% or greater; *STAFF EDUCATOR Guidelines for O2: Yes; Document: file://[employer].or g/epic/EPIC_Reference/Or ders/Respiratory%20Care% 20Guidelines/CPG%20Oxyge n%[id number].pdf Oxygen Therapy - Maintain SpO2: 90% or greater; *STAFF EDUCATOR Guidelines for O2: Yes; Document: file://[employer].org /epic/EPIC_Reference/Orde rs/Respiratory%20Care%20G uidelines/CPG%20Oxygen%20 2016.pdf Respiratory Care STAT Iron deficiency anemia due to chronic blood loss Iron deficiency anemia, unspecified Iron malabsorption As Needed for 1 Occurrences starting 02/06/2023 until 02/07/2023 [email or web address] [facility] Work Phone: Comment on above: As [...] persistent 1 Occurrences starting 02/20/2023 until 02/21/2024 [facility] Work Phone: Comment on above: 1 Occurrences starti ng 02/20/2023 until 02/21/2024 Reagin Ab [Presence] in Serum by RPR RPR Lab Routine Missed menses , unspecified gestational age Ordered: 01/23/2024 [facility] Comment on above: Ordered: 01/23/2024 Rubella antibody, IgG Rubella an tibody, IgG Lab Routine Missed menses , unspecified gestational age Ordered: 01/23/2024 [email or web address] Comment on above: Ordered: 01/23/2024 SURESWAB(R) ADVANCED VAGINITIS PLUS, TMA SURESWAB(R) ADVANCED VAGINITIS PLUS, TMA Pathology and Cytology Routine Vaginal discharge Ordered: 03/17/2024 [email or web address] Work Phone: Comment on above: Ordered: 03/17/2024 End: 02-02-2025 Thiopurine Metabs Thiopurine Metabs Lab Routine Therapeutic drug monitoring 1 Occurrences starting 02/03/2024 until 02/02/2025 [employer] Work Phone: Comment on above: 1 Occurrences starti ng 02/03/2024 until 02/02/2025 End: 10-30-2024 Thiopurine Metabs Thiopurine Metabs Lab Routine Therapeutic drug monitoring 1 Occurrences starting 10/31/2023 until 10/30/2024 [facility] Comment on above: 1 Occurrences starti ng 10/31/2023 until 10/30/2024 End: 10-30-2024 Vitamin D 25 hydroxy Vitamin D 25 hydroxy Lab Routine Crohn's disease of both small and large intestine with other complication ([facility] 1 Occurrences starting 10/31/2023 until 10/30/2024 [facility] Comment on above: 1 Occurrences starti ng 10/31/2023 until 10/30/2024 End: 04-19-2025 Vitamin D 25 hydroxy Vitamin D 25 hydroxy Lab Routine Crohn's disease with complication, unspecified gastrointestinal tract location ([facility]) 1 Occurrences starting 04/19/2024 until 04/19/2025 [facility] Comment on above: 1 Occurrences starti ng 04/19/2024 until 04/19/2025 Payers Date Payer Category Payer Medicaid [id number] 2022 Medicaid [id number] 2021 Commercial Managed C are - POS [employer] [id number] 2021 Managed Care HMO (unspecified) [employer] [id number] 2021 Private Health Insurance [employer] AETNA POS II [id number] 2021-Present [phone] [address] [place] [address] [id number] [id number] 1989 Unknown [id number] 2.16.840.1.674200.3.579. 2.593 1989 Unknown [id number] 2.16.840.1.653359.3.579. 2.1286 1989 Unknown [id number] 2.16.840.1.988676.3.579. 2.6 1989 Unknown [id number] 2.16.840.1.963173.3.579. 2.6 1989 Unknown [id number] 2.16.840.1.616325.3.579. 2.6 1989 Unknown [id number] 2.16.840.1.858984.3.579. 2.1285 1989 Unknown [id number] 2.16.840.1.020275.3.579. 2.1285 1989 Unknown [id number] 2.16.840.1.106596.3.579. 2.1285 1989 Unknown [id number] 2.16.840.1.332072.3.579. 2.1285 1989 Unknown [id number] 2.16.840.1.083319.3.579. 2.1285 1989 Unknown [id number] 2.16.840.1.683213.3.579. 2.1285 1989 Unknown [id number] 2.16.840.1.407096.3.579. 2.1285 1989 Unknown [id number] 2.16.840.1.345007.3.579. 2.1285 1989 Unknown [id number] 2.16.840.1.638427.3.579. 2.1285 1989 Unknown [id number] 2.16.840.1.810086.3.579. 2.1285 1989 Unknown [id number] 2.16.840.1.828265.3.579. 2.1285 1989 Unknown [id number] 2.16.840.1.483351.3.579. 2.1286 1989 Unknown [id number] 2.16.840.1.398071.3.579. 2.1286 1989 Unknown [id number] 2.16.840.1.044774.3.579. 2.1286 1989 Unknown [id number] 2.16.840.1.853198.3.579. 2.1259 1989 Unknown [id number] 2.16.840.1.892560.3.579. 2.1259 1989 Unknown [id number] 2.16.840.1.082948.3.579. 2.9 1989 Unknown [id number] 2.16.840.1.894495.3.579. 2.9 1989 Unknown [id number] 2.16.840.1.726653.3.579. 2.9 1989 Unknown [id number] 2.16.840.1.143038.3.579. 2.9 1989 Unknown [id number] 2.16.840.1.755803.3.579. 2.9 1989 Unknown [id number] 2.16.840.1.846508.3.579. 2.1286 1989 Unknown [id number] 2.16.840.1.750083.3.579. 2.1286 1989 Unknown [id number] 2.16.840.1.708188.3.579. 2.1286 1989 Unknown [id number] 2.16.840.1.208593.3.579. 2.1286 1959 Private Health Insurance [id number] Social History Date Type Detail Facility Start: 12-27-2021 End: 10-09-2022 Tobacco smoking status OKIS Never smoked tobacco [facility] Start: 12-27-2021 End: 10-09-2022 Tobacco use and exposure Smokeless tobacco non-user [facility] Start: 01-23-2024 End: 03-17-2024 Alcoholic beverage intake Lifetime non-drinker (finding) [facility] Start: 02-29-2020 End: 09-15-2023 History of Social function [facility] Start: 02-29-2020 End: 09-15-2023 Tobacco use panel [facility] Start: 11-19-2023 [facility] Start: 1990 Sex assigned at Female [facility] Start: 09-12-2022 Gender identity Identifies as female gender (finding) [facility] Start: 09-12-2022 Sexual orientation Heterosexual (finding) [facility] Start: 01-31-2024 End: 05-06-2024 Alcoholic beverage intake Current non-drinker of alcohol (finding) [facility] Adolescent depressio n screening assessment 15 [facility] Start: 1990 Sex assigned at Not on file [facility] Start: 09-13-2014 Sex Female (finding) [facility] Goals Date Patient Goal Desired Activity /State [...] a result of low hemoglobin levels during [facility] 05-06-2024 Miscellaneous Notes Associated Problem(s): Anemia affecting [...] seek medical care. documented in this encounter [facility] 05-06-2024 Evaluation + Plan note Associated Problem(s): [...] or chest pain to seek medical care. [facility] 05-06-2024 History of Present illness Narrative Images from the original note were not included. [facility] [address] [place] [address] [place] [address] Patient: Juan Luis Storey Date of : 1990 Encounter Date: 05/06/2024 Subjective: Chief Complaint Chief Complaint Patient presents with Er Follow-up History of Present Illness Juan Luis Storey is a 33 y.o. female, established patient, that presents to the office for ER follow up for elevated blood pressure in patient Hypertension Chronicity: Seen at [facility] on 05/04/24 for shortness of breath, [...] obstruction (CMS-HCC) 10/17/2017 Chronic diarrhea Colon stricture ([facility]) 04/02/2018 Crohn's colitis ([facility]) Crohn's disease ([facility]) Crohn's disease of both small and large intestine with intestinal obstruction ([facility]) 03/03/2018 Current chronic use of systemic steroids 03/03/2018 Depression Diarrhea 10/17/2017 Added automatically from request for surgery [id number] Difficulty sleeping 01/13/2019 Gall stones History of [...] 10/21/2017 Performed by Sharda Montiel MD at [facility] COLONOSCOPY w/ Bx's & polypectomy N/A 10/08/2021 Performed by Sharda Montiel MD at [facility] EGD N/A 04/02/2018 Performed by Darshana Rae MD at [facility] LAPAROSCOPIC ILEOCECECTOMY, TAKE DOWN OF ILEODUDENAL FISTULA, DRAINAGE OF RETROPERITONEAL ABSCESS, OMENTAL PEDICLE FLAP N/A 04/02/2018 Performed by Jonathan Bautista MD at [facility] Family History Problem Relation Age of [...] 05/06/24 1:03 PM documented in this encounter [facility] 05-06-2024 Instructions Raulito Jimenez DO - 05/06/2024 [...] sent through Care Everywhere.High blood pressure and (Indonesian)documented in this encounter [facility] 04-26-2024 History of Present illness Narrative Reason [...] (FOLVITE) 1,000 mcg, Oral, Every morning HYDROcodone-acetaminophen ([place]) 5-325 MG tablet 1 tablet, Oral, Every [...] nursing note reviewed. Exam conducted with a asset accountant present. Vitals: Estimated body mass index is [...] disease with complication, unspecified gastrointestinal tract location ([facility]) K50.919 Return OB: Patient presents today for [...] She does report she has spoken to [facility] but does not yet have a scheduled appointment but will reach back out to them to schedule related to non visualized stomach during anatomy scan. Documented by Kimi Simmons NP on behalf of: Parish Valdez DO documented in this encounter [facility] 04-19-2024 Miscellaneous Notes Biologic team, please [...] OV note and fax it to her loop tacker, Dr. Parish Valdez DO at [facility]. Thank you. Faxed to [phone] Zymfentra 120mg/ml PA was sent to plan via [facility] Schneider number: [id number] documented in this encounter [facility] 04-19-2024 Telephone encounter Note Biologic team, please [...] OV note and fax it to her loop tacker, Dr. Parish Valdez DO at [facility]. Thank you. [facility] 04-19-2024 Telephone encounter Note Faxed to [phone] [facility] 04-19-2024 Telephone encounter Note Zymfentra 120mg/ml PA was sent to plan via [facility] Schneider number: [id number] [facility] 04-19-2024 History of Present illness Narrative Infusion start time: 11:10 am Patient here for her Avsola infusion. Patient denies any recent infections or on antibiotics, open wounds, recent/future surgery, vaccinations or insurance changes. 10:50 am IV started with 22g needle to left AC by JAD Arroyo x1 attempt. Patient tolerated well. Avsola x 4 vials Lot# [id number] Exp- 09/10/2027 Time out performed prior to medication administration. Name, , medication(s) verified 1310 patient infusion complete. IV flushed with normal saline. 1313 IV discontinued, catheter intact, vitals WNL. Patient tolerated infusion well documented in this encounter [facility] 04-19-2024 History of Present illness Narrative [facility] Follow Up Visit CHIEF [...] obstruction (CMS-HCC) 10/17/2017 Chronic diarrhea Colon stricture ([facility]-HCC) 04/02/2018 Crohn's colitis ([facility]) Crohn's disease ([facility]) Crohn's disease of both small and large intestine with intestinal obstruction ([facility]) 03/03/2018 Current chronic use of systemic steroids 03/03/2018 Depression Diarrhea 10/17/2017 Added automatically from request for surgery [id number] Difficulty sleeping 01/13/2019 Gall stones History of [...] 10/21/2017 Performed by Sharda Montiel MD at [facility] COLONOSCOPY w/ Bx's & polypectomy N/A 10/08/2021 Performed by Sharda Montiel MD at [facility] EGD N/A 04/02/2018 Performed by Darshana Rae MD at [facility] LAPAROSCOPIC ILEOCECECTOMY, TAKE DOWN OF ILEODUDENAL FISTULA, DRAINAGE OF RETROPERITONEAL ABSCESS, OMENTAL PEDICLE FLAP N/A 04/02/2018 Performed by Jonathan Bautista MD at [facility] SOCIAL HISTORY: Social History Tobacco [...] VITAMIN B12: Lab Results Component Value Date [id number] 239 01/26/2024 FOLATE: Lab Results Component Value [...] a hysterectomy has been advised by her regional sales associate, but that she was not ready to proceed. 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 [address] units q.week x8 and then back to [...] findings of the ongoing PIANO study, The [employer] Consensus Statements for the Management of Inflammatory Bowel Disease in , and the clinical care pathway released by the AGA. - AGA clinical practice update on -related gastrointestinal and liver disease: expert review (Gastroenterology. 2023;167(5):1562-7152). - Johnathan Farr, Rey Johnson, Ama Aguilar, et al. Inflammatory bowel disease in clinical care pathway: a report from the spanish gastroenterological association [facility]renthood project working group. Gastroenterology. 2019;156(5):5368-3951. - Johnathan U, Yady RA, Lobito CD. [...] and strongly recommended annual f/u with a concrete mixer operator helper and regular use of skin protection -- [...] procedures Referring and communicating with other health director of managed care (not separately reported) Documenting clinical information in [...] for your understanding. Camila Montiel MD, MPH [facility] [address] [address] PH: [phone] Juan Luis was seen today for follow-up. Diagnoses and all orders for this visit: Thrombocytopenia (CMS-HCC) - CBC auto differential; Future Crohn's disease with complication, unspecified gastrointestinal tract location ([facility]) - Vitamin D 25 hydroxy; Future - Vitamin B12; Future documented in this encounter [facility] [employer] [facility] 04-19-2024 Instructions Sharda Montiel MD - 04/19/2024 10:00 AM EDT Labs - from today, 02/02/25, and 01/27/25 I recommend hepatitis A vaccines with your PCP, the health department, or any pharmacy; this is typically a series of 2 injections 3. 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 dose vitamin D from the pharmacy Preventative Health Maintenance for Crohn's and ulcerative colitis -- Skin cancer prevention: I recommend annual follow up with a concrete mixer operator helper and regular use of skin protection given the increased risk of skin cancer, especially in patients on immunomodulator (Imuran / azathioprine / 6MP) or biologic medications (Remicade, Humira, Enyvio) -- Cervical cancer prevention: I recommend annual follow up with your loop tacker doctor with annual pap smears -- Tobacco [...] would be interested in meeting with a landscape laborer please let me or your family doctor [...] the role of diet in IBD: [email or web address]/client_[email or web address]?[facility]_client_ed_id =[email or web address] documented in this encounter [facility] 04-14-2024 History of Present illness Narrative Reason [...] nursing note reviewed. Exam conducted with a asset accountant present. Vitals: Estimated body mass index is [...] Parish Valdez DO documented in this encounter [facility] 03-17-2024 History of Present [...] obtained without difficulty and patient was given [facility] order to have obtained. Orders Placed This Encounter Procedures US OB 14+ weeks anatomy scan CHLAMYDIA TRACHOMATIS (GENITO/STI) Neisseria gonorrhea DNA probe, direct Alpha fetoprotein, maternal Follow Up: Patient is to return to our office in 4 weeks for routine OB appointment Documented by SIMI Frazier on behalf of: SIMI Frazier documented in this encounter [facility] 03-08-2024 History of Present illness Narrative Infusion start time: 1040 Patient here for Avsola infusion. Patient denies any recent infections or on antibiotics, open wounds, recent/future surgery, vaccinations or insurance changes. IV started with 22g needle to left forearm by Yaquelin Barba RN x1 attempt. Patient tolerated well. Avsola Lot# [id number] 2vials Exp- 09/10/2027 Lot#[id number] 2 vials Exp08/10/2027 Time out performed prior [...] this encounter [facility] 02-18-2024 History of Present illness Narrative Reason [...] nursing note reviewed. Exam conducted with a asset accountant present. Vitals: Estimated body mass index is [...] meat, and stay away from [facility]. Patient has been consulted regarding any further [...] Parish Valdez DO documented in this encounter [facility] 01-23-2024 History of Present [...] meat, and stay away from [facility]. Patient has also been advised to not [...] Veronica Klein LPN documented in this encounter [facility] 12-17-[address] [...] send a letter to the family doctor/PCP, Digital Content Producer, and map colorer advising against the use of live vaccines for the 1st 6 months of the baby's life and to monitor the baby closely for any signs of infection. Please send her the following as well: [email or web address] [email or web address]/blog/xyxrz-bhvkp-xicpsn-ho qa-yft-critnrq-lr-scdodcbbbbe-roh -[email or web address]-yqk-cjmf I recommend an OV w me in 02/2024 or 03/2024 Please disregard notes below. Summary These recommendations are in accordance with the findings of the ongoing PIANO study, The [place] Consensus Statements for the Management of Inflammatory [...] clinical care pathway: a report from the spanish gastroenterological association ibd parenthood project working group. Gastroenterology. 2019;156(5):6183-5547. Spoke with patient regarding recommendations, sent via [employer]. Will call patient back when March schedule is out, she needs Mondays. [facility] 12-17-[address] Montiel, Patient called stating she took a urine test this past Friday and it was positive. She receives Inflectra 400 mg every 6 weeks for her Crohn's. She also takes Imuran 150 mg po daily. Juan Luis is inquiring if she can continue taking her Imuran and Inflectra infusions? Please advise, thank you [facility] 12-17-2023 Telephone encounter Note Please let her [...] send a letter to the family doctor/PCP, Digital Content Producer, and map colorer advising against the use of live vaccines for the 1st 6 months of the baby's life and to monitor the baby closely for any signs of infection. Please send her the following as well: [email or web address] on.org/blog/qlwaz-gcdse-amllrd-ho mx-ems-fewrrzz-ed-pjudjnqvldb-ubb -ibozkzg-rjv-yhoa I recommend an OV w me in 02/2024 or 03/2024 Please disregard notes below. Summary These recommendations are in accordance with the findings of the ongoing PIANO study, The [place] Consensus Statements for the Management of Inflammatory [...] clinical care pathway: a report from the spanish gastroenterological association [facility]d parenthood project working group. Gastroenterology. 2019;156(5):9202-4815. [facility] 12-17-2023 Telephone encounter Note Spoke with patient regarding recommendations, sent via [employer]. Will call patient back when March schedule is out, she needs Mondays. [facility] 12-12-2023 History of Present illness Narrative Infusion start time: 10:50 am Patient here for Inflectra infusion. Patient denies any recent infections or on antibiotics, open wounds, recent/future surgery, vaccinations or insurance changes. 10:30 am IV started with 22g needle to right hand by JAD Arroyo x1 attempt. Patient tolerated well. Inflectra x 4 vials Lot# [id number] Exp- 04/09/2028 Time out performed prior to medication administration. Name, , medication(s) verified 11:50 am patient infusion complete. IV flushed with 10 ml normal saline. IV discontinued, catheter intact, vitals WNL. Patient tolerated infusion well documented in this encounter [facility] 12-01-2023 History of Present illness Narrative Images from the original note were not included. [facility] [address] [place] [phone] 12/01/2023 Chief Complaint Patient presents with [...] Present Illness: Oncology History Overview Note Mrs. tSorey is a 32 y.o. female with history [...] small and large intestine with intestinal obstruction ([facility]) Other Visit Diagnoses Iron deficiency - [...] procedures Referring and communicating with other health director of managed care (not separately reported) Documenting clinical information in the electronic or other health record Independently interpreting results (not separately reported) and communicating results to the patient/family/caregiver Care coordination (not separately reported) ---- Please note that portions of this note may have been generated using voice recognition [employer] dictation software. Although every effort was made to ensure the accuracy of any automated transcriptions, some errors may have occurred. TERA Carbajal 12/01/23 1502 [facility] Instructions TERA Carbajal - 12/01/2023 2:30 PM EDT Pending labs If iron is low, will order Injectafer IV If iron is low, will repeat labs in 3 months CBC-d iron panel ferritin If iron is normal, just follow up yearly as below Follow up yearly with labs same as above [facility] 10-31-2023 History of Present illness Narrative IV Infusion start time: 944. Patient here for Inflectra infusion. Patient denies any recent infections or on antibiotics, open wounds, recent/future surgery, vaccinations or insurance changes. IV started with 22g needle to left hand by JAD Arroyo x1 attempt. Patient tolerated well. Inflectra x 4 vials Lot# [id number] Exp- [id number] Time out performed prior to medication administration. Name, , medication(s) verified 11:13 am patient infusion complete. IV discontinued, catheter intact, vitals WNL. Patient tolerated infusion well documented in this encounter [facility] 10-31-2023 History of Present illness Narrative [facility] Follow Up Visit CHIEF COMPLAINT: Chief [...] obstruction (CMS-HCC) 10/17/2017 Chronic diarrhea Colon stricture ([facility]) 04/02/2018 Crohn's colitis (CMS-HCC) Crohn's disease ([facility]) Crohn's disease of both small and large intestine with intestinal obstruction ([facility]) 03/03/2018 Current chronic use of systemic steroids 03/03/2018 Depression Diarrhea 10/17/2017 Added automatically from request for surgery [id number] Difficulty sleeping 01/13/2019 Gall stones History of [...] 10/21/2017 Performed by Sharda Montiel MD at [facility] COLONOSCOPY w/ Bx's & polypectomy N/A 10/08/2021 Performed by Sharda Montiel MD at [facility] EGD N/A 04/02/2018 Performed by Darshana Rae MD at [facility] LAPAROSCOPIC ILEOCECECTOMY, TAKE DOWN OF ILEODUDENAL FISTULA, DRAINAGE OF RETROPERITONEAL ABSCESS, OMENTAL PEDICLE FLAP N/A 04/02/2018 Performed by Jonathan Bautista MD at [facility] SOCIAL HISTORY: Social History Tobacco [...] VITAMIN B12: Lab Results Component Value Date [id number] 1,378 (H) 08/02/2021 FOLATE: Lab Results Component [...] a hysterectomy has been advised by her regional sales associate, but that she was not ready to proceed. 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 [address] units q.week x8 and then back to [...] folic acid. Patient Care Team: Hilary Aviles APRN-SMOG TECHNICIAN as PCP - General (Family Medicine) Jonathan [...] and strongly recommended annual f/u with a concrete mixer operator helper and regular use of skin protection -- [...] procedures Referring and communicating with other health director of managed care (not separately reported) Documenting clinical information in [...] for your understanding. Camila Montiel MD, MPH [facility] [address] [address] PH: [phone] Juan Luis was seen today for follow-up. [...] in the morning. documented in this encounter [facility] [employer] [facility] 10-31-2023 Instructions Sharda Montiel MD - [...] I recommend annual follow up with a concrete mixer operator helper and regular use of skin protection given the increased risk of skin cancer, especially in patients on immunomodulator (Imuran / azathioprine / 6MP) or biologic medications (Remicade, Humira, Enyvio) -- Cervical cancer prevention: I recommend annual follow up with your loop tacker doctor with annual pap smears -- Tobacco [...] would be interested in meeting with a landscape laborer please let me or your family doctor [...] the role of diet in IBD: [email or web address].nutritioncaremanual.o rg/client_ed.cfm?[facility]_client_ed_id =[email or web address] documented in this encounter [facility] 09-17-2023 History of Present illness Narrative Subjective [...] regarding her care. She is currently at [facility]. She is in a vegetative state. [...] of major depressive disorder without prior episode ([facility]) - citalopram (CeleXA) 20 mg tablet; Take 1.5 tablets (30 mg total) by mouth in the morning. Crohn's disease of both small and large intestine with intestinal obstruction ([facility]) TERA Church 09/17/23 0109 documented in this encounter [facility] 09-15-2023 Miscellaneous Notes Refill infusion orders received; approved for now. Must make 10/31/23 OV or can no longer receive infusions here until she is seen. Tried to call patient, busy signal. Sent MyChart message. Patient called. Updated. She verbalized understanding Thank You documented in this encounter [facility] 09-15-2023 Telephone encounter Note Refill infusion orders received; approved for now. Must make 10/31/23 OV or can no longer receive infusions here until she is seen. [facility] 09-15-2023 Telephone encounter Note Tried to call patient, busy signal. Sent MyChart message. [facility] 09-15-2023 Telephone encounter Note Patient called. Updated. She verbalized understanding Thank You [facility] 09-15-2023 History of Present illness Narrative IV Infusion start time: 10:30 am Patient here for Inflectra infusion. Patient denies any recent infections or on antibiotics, open wounds, recent/future surgery, vaccinations or insurance changes. IV started with 22g needle to right AC by JAD Arroyo x1 attempt. Patient tolerated well. Inflectra x 4 vials Lot# [id number] Exp- [id number] Time out performed prior to medication administration. Name, , medication(s) verified 12:10 pm patient infusion complete. IV discontinued, catheter intact, vitals WNL. Patient tolerated infusion well documented in this encounter [facility] 09-03-2023 Miscellaneous Notes Patient presented to front desk lead window and paid for FMLA today. FMLA faxed. documented in this encounter [facility] 09-03-2023 Telephone encounter Note Patient presented to front desk lead window and paid for FMLA today. FMLA faxed. [facility] 09-03-2023 History of Present illness Narrative Video Visit via Real-time Synchronous Audiovisual Provider Location: [facility] [address] [place] [phone] Patient Location: Patient's home Video Visit Consent [...] that there are some limitations compared to mctn-ri-qbpq evaluations. The patient consented to the presence [...] this encounter [facility] 08-20-2023 History of Present illness Narrative Subjective [...] Church 08/20/23 1530 documented in this encounter [facility] 08-04-2023 History of Present illness Narrative IV Infusion start time: 1318. Patient here for Inflectra infusion. Patient denies any recent infections or on antibiotics, open wounds, recent/future surgery, vaccinations or insurance changes. IV started with 22g needle to left AC by JAD Arroyo x1 attempt. Patient tolerated well. Inflectra x 4 vials Lot# [id number] Exp- [id number] Time out performed prior to medication administration. [...] this encounter [facility] 06-18-2023 Miscellaneous Notes Patient has missed the following appointments: 06/17/23 06/10/23 04/14/23 06/17/22 11/10/20 See other note for follow up documented in this encounter [facility] 06-18-2023 Telephone encounter Note Patient has missed the following appointments: 06/17/23 06/10/23 04/14/23 06/17/22 11/10/20 [facility] 06-18-2023 Telephone encounter Note See other note for follow up [facility] 06-10-2023 Miscellaneous Notes SANIYA Cheatham and Dr. [...] 06/10/23). No show policy letter sent via [employer] and certified mail. documented in this encounter [facility] 06-10-2023 Telephone encounter Note SANIYA Cheatham and Dr. Montiel, Patient was scheduled today for her Inflectra infusion; was a NO SHOW. She also no showed 04/14/23 Call placed to patient with no answer. Message left for patient to call office back in regards to rescheduling her infusion. [facility] 06-10-2023 Telephone encounter Note Reviewing the chart it appears she has had multiple no shows even prior to this. Please send no-show / late cancellation fee notice and remind her of the no-show policy and that we are tracking this information. If she no-shows again, she may be discharged from the practice per office policy. Thank you. [facility] 06-10-2023 Telephone encounter Note Patient called and rescheduled 06/18/23 [facility] 06-10-2023 Telephone encounter Note Chaparrita, Patient NO SHOWED for her OV yesterday and did not come to her rescheduled infusion today (she NO SHOWED 06/10/23). [facility] 06-10-2023 Telephone encounter Note No show policy letter sent via [employer] and certified mail. [facility] 04-21-2023 Miscellaneous Notes Due for OV There [...] this encounter [facility] 04-21-2023 Telephone encounter Note Due for OV [facility] 04-21-2023 Telephone encounter Note There is nothing available for a recheck OV , can we use a new patient slot? [facility] 04-21-2023 Telephone encounter Note Yes that's ok [facility] 04-21-2023 Telephone encounter Note Left message for patient to call and schedule. [facility] 04-21-2023 Telephone encounter Note Message left for patient to call back. [facility] 04-21-2023 Telephone encounter Note Patient is scheduled with Meaghan on June 16 at 11:15 am. Infusion is scheduled on June 09 at 10:30 am [facility] 04-21-2023 History of Present illness Narrative 1020 am Patient here for Inflectra infusion. Patient denies any recent infections, open wounds, recent/future surgery, or insurance changes . IV started with 22g needle to right hand by raf street x 1 attempt. Patient tolerated well. Inflectra x 4 vials Lot #[id number] Exp date 12/11/2027 Time out performed with Raf Delatorre RN. 400 mg of Inflectra to be mixed and administered to patient per current treatment plan orders. 1305 patient infusion complete. IV discontinued, catheter intact, vitals WNL. Patient tolerated infusion well documented in this encounter [facility] 04-14-2023 Miscellaneous Notes Patient missed the visit. RN called patient and RN rescheduled patient for 04/21/2023. documented in this encounter [facility] 04-14-2023 Telephone encounter Note Patient missed the visit. RN called patient and RN rescheduled patient for 04/21/2023. [facility] 03-31-2023 Miscellaneous Notes RN was told that [...] this encounter [facility] 03-31-2023 Telephone encounter Note RN was told that patient is calling regarding her insurance. The phone call was then transferred back to the infusion room. Patient states she lost her secondary insurance and wanted to know to what the amount she will be responsible for. RN informed patient to call her insurance company to find out that information. [facility] 02-20-2023 History of Present illness Narrative Images from the original note were not included. [address] [place] [phone] Patient: Juan Luis Storey Date of [...] morning. LYNDSEY ANDERS MD Family Medicine Physician [facility] / [facility] 02/20/23 This note was completed with voice recognition software. The document was reviewed for errors however some may still be present. Please do not hesitate to contact/[facility] the author to verify any questions/concerns. documented in this encounter [facility] [employer] [facility] 02-17-2023 History of Present illness Narrative 1145 Patient here for Inflectra infusion. Patient denies any recent infections, open wounds, recent/future surgery, or insurance changes . Site cleansed with alcohol. IV started with 22g needle by Yaquelin Barba RN in right hand. Patient tolerated well. Lot # [id number] Exp 07/11/27 1422 patient infusion complete. IV discontinued at 1422. Patient tolerated infusion well. documented in this encounter [facility] 02-06-2023 History of Present illness Narrative Patient [...] this encounter [facility] Evaluation note Diagnosis Missed menses , unspecified gestational age Encounter for supervision of normal first in first trimester headache in first trimester documented in this encounter [facility]* Diagnosis Therapeutic drug monitoring- Primary Encounter for therapeutic drug monitoring documented [facility] this [facility] Diagnosis Second trimester state, incidental 15 weeks gestation of H/O oligohydramnios in prior , currently documented in this encounter [facility] HealthcareEvaluation note* Diagnosis Crohn's disease of both small and large intestine with intestinal obstruction (CMS-HCC)- Primary [facility] Diagnosis Second trimester state, incidental 19 weeks gestation of Vaginal discharge Leukorrhea, not specified as infective STD exposure Screening, , for anatomic survey Encounter for anatomic survey documented in this encounter [facility] Healthcare[facility] note* Diagnosis 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 deficiency anemia, unspecified Iron malabsorption Other specified intestinal malabsorption [facility] Diagnosis Crohn's disease of both small and large intestine with intestinal obstruction (CMS-HCC)- Primary [facility] Diagnosis Crohn's disease of both small and large intestine with intestinal obstruction (CMS-HCC)- Primary [facility] Diagnosis Reactive airway disease with acute exacerbation, unspecified asthma severity, unspecified whether persistent- Primary Shortness of breath COVID-19 Sinusitis, unspecified chronicity, unspecified location [facility] Diagnosis Crohn's disease of both small and large intestine with intestinal obstruction (CMS-HCC)- Primary [facility] Diagnosis Anxiety- Primary Anxiety state, unspecified [facility] Diagnosis Crohn's disease of both small and large intestine with intestinal obstruction (CMS-HCC)- Primary [facility]* Diagnosis Reactive depression- Primary [facility] Diagnosis Crohn's disease of both small and large intestine with intestinal obstruction (CMS-HCC)- Primary [facility] Diagnosis Current moderate episode of major depressive disorder without prior episode (CMS-HCC)- Primary Crohn's disease of both small and large intestine with intestinal obstruction (CMS-HCC) [facility] Diagnosis Therapeutic drug monitoring- Primary Encounter for therapeutic drug monitoring Crohn's disease of both small and large intestine with other complication (CMS-HCC) [facility] Diagnosis Crohn's disease of both small and large intestine with intestinal obstruction (CMS-HCC)- Primary [facility] Diagnosis Iron deficiency- Primary Disorders [...] unspecified [facility] Diagnosis Crohn's disease of both small and large intestine with intestinal obstruction (CMS-HCC)- Primary documented in this encounter [facility]* Diagnosis Iron deficiency anemia [...] Care Everywhere. * Anxiety Discharge Instructions, Adult (Indonesian) [facility] documented in [facility] System[facility]ructionsNot on file documented in this encounterPro[facility] SystemInstructionsNot on file documented in this [facility]Pro[facility]ructions* Attachments The following attachments cannot be sent through Care Everywhere. * Depression (Indonesian) documented in [facility] encounterPro[facility] SystemInstructionsNot on file documented in this encounterPro[facility] SystemInstructionsNot on file [facility] Summary Purpose Family History No Family [...] section and content) DATE CREATED AUTHOR 08/05/2017 [facility] DATE CREATED AUTHOR AUTHOR'S ORGANIZ ATION 06/26/2022 [facility] DATE CREATED AUTHOR AUTHOR'S ORGANIZ ATION 02/03/2024 [facility] DATE CREATED AUTHOR AUTHOR'S ORGANIZ ATION 04/25/2024 [facility] DATE CREATED AUTHOR AUTHOR'S ORGANIZ ATION 04/27/[address] [facility] DATE CREATED AUTHOR AUTHOR'S ORGANIZ ATION [...] BIOSIMILAR, (AVSOLA), 10 MG INFUSION Hilary Aviles APRN-SMOG TECHNICIAN [address], [place] [address] Phone: tel: fax: [facility] [address] [address] Phone: tel: fax: Referral ID Status Reason Start Date Expiration Date V isits Requested Visits Authorized [id number] Authorized 01/20/2024 01/18/2025 9 9 Reason Comments Outpatient Infusion Injectafer Specialty Diagnoses / Procedures Referred By Contac t Referred To Contact Diagnoses Iron deficiency anemia due to chronic blood loss Iron deficiency anemia, unspecified Iron malabsorption Procedures [place] INJ FERRIC CARBOXYMALTOS 1MG Mj Pizarro MD [address] [place] [address] [address] [place] [id number] [facility] [address] [place] [phone] Referral ID Status Reason Start Date Expiration Date V isits Requested Visits Authorized [id number] Authorized 01/24/2023 07/23/2023 2 2 Reason Comments Outpatient Infusion Inflectra Specialty Diagnoses / Procedures Referred By Contac t Referred To Contact Gastroenterology Diagnoses Crohn's disease of both small and large intestine with intestinal obstruction Inflectra 5mg/kg every 6 weeks, Auth'd for 9 visits 6.16.23-6.15.24, SA/Crohns Procedures [place] INFLIXIMAB INJECTION INFUSION Hilary Aviles APRN-SMOG TECHNICIAN [address], [place] [address] [facility] [address] [place] [phone] Referral ID Status Reason Start Date Expiration Date V isits Requested Visits Authorized [id number] Pending Review 07/26/2022 07/26/2023 9 9 Reason Comments Asthma Reason Comments Outpatient Infusion inflectra Specialty Diagnoses / Procedures Referred By Contac t Referred To Contact Gastroenterology Diagnoses Crohn's disease of both small and large intestine with intestinal obstruction Procedures [place] INFLIXIMAB INJECTION Referral ID Status Reason Start Date Expiration Date V isits Requested Visits Authorized [id number] Authorized 04/01/2023 04/01/2024 9 9 Reason Comments Mental Health Problem Reason Comments FMLA Reason Comments Anxiety Depression Reason Comments Follow-up Patient is here for a follow up and denies any issues. Reason Comments Follow-up Specialty Diagnoses / Procedures Referred By Contac t Referred To Contact Gastroenterology Diagnoses Crohn's disease of both small and large intestine with intestinal obstruction Procedures [place] INFLIXIMAB INJECTION Reason Comments Outpatient Infusion Specialty Diagnoses / Procedures Referred By Contac t Referred To Contact Gastroenterology Diagnoses Crohn's disease of both small and large intestine with intestinal obstruction [place] 5mg/kg (400mg) every 6 weeks/ Auth'd 01.20.24 - 01.18.25/ visits/ [id number] Dr. Montiel NO ACCELERATED INFUSION Procedures INJECTION, INFLIXIMAB-AXXQ, BIOSIMILAR, (AVSOLA), 10 MG INFUSION Hilary Aviles APRN-CNP [address] [facility] [address], [place] [address] Phone: tel: fax: [facility] [address] [phone] Phone: tel: fax: Reason Comments Er Follow-up Care Teams (unrecognized sec tion and content) Pulp Mill Operator Relationship Specialty Start Date End Date Hilary Aviles MD [address] [place] [address] Referring Physician Nurse Practitioner 10/08/22 Pulp Mill Operator Relationship Specialty Start Date End Date Hilary Aviles APRN-CNP [address], [place] [address] PCP - General Family Medicine 01/03/24 Pulp Mill Operator Relationship Specialty Start Date End Date Hilary Aviles MD [address] [place] [address] Referring Physician Nurse Practitioner 10/08/22 Pulp Mill Operator Relationship Specialty Start Date End Date Hilary Aviles MD [address] [place] [address] Referring Physician Nurse Practitioner 10/08/22 Pulp Mill Operator Relationship Specialty Start Date End Date Hilary Aviles MD [address] [place] [address] [place] [address] Referring Physician Nurse Practitioner 10/08/22 Pulp Mill Operator Relationship Specialty Start Date End Date Hilary Aviles APRN-SMOG TECHNICIAN [address], [place] [address] PCP - General Family Medicine 01/03/24 Pulp Mill Operator Relationship Specialty Start Date End Date Hilary Aviles MD [address] [place] [address] [place] [address] Referring Physician Nurse Practitioner 10/08/22 Pulp Mill Operator Relationship Specialty Start Date End Date Hilary Aviles MD [address] [place] [address] Referring Physician Nurse Practitioner 10/08/22 Pulp Mill Operator Relationship Specialty Start Date End Date Hilary Aviles MD [address] [place] [address] Referring Physician Nurse Practitioner 10/08/22 Pulp Mill Operator Relationship Specialty Start Date End Date Hilary Aviles [facility] [address], [place] [address] PCP - General Family Medicine 12/26/22 Pulp Mill Operator Relationship Specialty Start Date End Date Hilary Aviles [facility] [address], [place] [address] PCP - General Family Medicine 12/26/22 Pulp Mill Operator Relationship Specialty Start Date End Date Hilary Aviles [facility] [address], [place] [facility] [address] PCP - General Family Medicine 12/26/22 Pulp Mill Operator Relationship Specialty Start Date End Date Hilary Aviles [facility] [address], [place] [address] PCP - General Family Medicine 12/26/22 Pulp Mill Operator Relationship Specialty Start Date End Date Hilary Aviles [facility] [address], [place] [place] [address] PCP - General Family Medicine 12/26/22 Pulp Mill Operator Relationship Specialty Start Date End Date Hilary Aviles [facility] [address], [place] [address] PCP - General Family Medicine 12/26/22 Pulp Mill Operator Relationship Specialty Start Date End Date Hilary Aviles APRN-[facility] [address], [place] [address] PCP - General Family Medicine 12/26/22 Pulp Mill Operator Relationship Specialty Start Date End Date Hilary Aviles [facility] [address], [place] [address] PCP - General Family Medicine 12/26/22 Pulp Mill Operator Relationship Specialty Start Date End Date Hilary Aviles APRN-[facility] [address], [place] [address] PCP - General Family Medicine 12/26/22 Pulp Mill Operator Relationship Specialty Start Date End Date Hilary Aviles APRN-[facility] [address], [place] [address] PCP - General Family Medicine 12/26/22 Pulp Mill Operator Relationship Specialty Start Date End Date Hilary Aviles APRN-[facility] [address], [place] [address] PCP - General Family Medicine 12/26/22 Pulp Mill Operator Relationship Specialty Start Date End Date Hilary Aviles APRN-SMOG TECHNICIAN [address], [place] [address] PCP - General Family Medicine 12/26/22 Pulp Mill Operator Relationship Specialty Start Date End Date Hilary Aviles APRN-SMOG TECHNICIAN [address], [place] [address] PCP - General Family Medicine 12/26/22 Pulp Mill Operator Relationship Specialty Start Date End Date Hilary Aviles [facility] [address], [place] [address] PCP - General Family Medicine 12/26/22 Pulp Mill Operator Relationship Specialty Start Date End Date Hilary Aviles [facility] [address], [place] [address] PCP - General Family Medicine 01/03/24 Pulp Mill Operator Relationship Specialty Start Date End Date Hilary Aviles [facility] [address], [place] [address] PCP - General Family Medicine 01/03/24 Pulp Mill Operator Relationship Specialty Start Date End Date Hilary Aviles MD [address] [place] [address] [place] [address] Referring Physician Nurse Practitioner 10/08/22 Pulp Mill Operator Relationship Specialty Start Date End Date Hilary Aviles [facility] [address], [place] [address] PCP - General Family Medicine 01/03/24 Pulp Mill Operator Relationship Specialty Start Date End Date Hilary Aviles [facility] [address], [place] [address] PCP - General Family Medicine 01/03/24 Pulp Mill Operator Relationship Specialty Start Date End Date Hilary Aviles APRN-CNP [address], [place] [address] PCP - [facility] Medicine 01/03/24 Pulp Mill Operator Relationship Specialty Start Date End Date Hilary Aviles MD [address] [place] [address] [address] [place] [address] Referring Physician Nurse Practitioner 10/08/22 Pulp Mill Operator Relationship Specialty Start Date End Date Hilary Aviles APRN-SMOG TECHNICIAN [address], [facility] [place] [address] PCP - [facility] 01/03/24 Pulp Mill Operator Relationship Specialty Start Date End Date Hilary Aviles MD [address] [place] [address] [place] [address] Referring Physician Nurse Practitioner 10/08/22 FOR RECORDS [...] BE BASED ON THE PRIMARY CLINICAL RECORDS. [facility] [employer] provides no warranty or guarantee of the accuracy or completeness of information in this document.
--- NOTE | 2024-05-10 07:32 | PC.NURSE ---
patient brought up from ER by RN. Patient arrives in wheelchair and as patient gets out of wheelchair patient states, I peed myself. RN provides a clean gown for patient to put on. Patient rocking and swaying hips at bedside. Patient states pain is extreme at 10/10. Patient states, I had a Crohn's attack at 5 am and took my medication but it hasn't helped. When RN asks patient does this pain feel similar to the pain of a Crohn's attack that has happened in the past patient states, I don't know. I just had an attack about 2 weeks ago but I don't remember. RN assists patient to get into bed and applies monitors. Patient states pain is constant. When RN settles patient into bed patient quiet and eyes closed with no moaning present.
--- NOTE | 2024-05-10 07:41 | PC.NURSE ---
when RN asks about any food intake that may have flared Crohn's attack patient denies. when RN asks about how water intake has been patient states, IK don't drink a lot of water. Patient describes pain as a constant pain that is in the middle of the abdomen that stretches to sides and slightly in the back.
--- NOTE | 2024-05-10 08:19 | PC.NURSE ---
Dr. Valdez consulted for patient's presentation to [facility]. report of patient and fetus provided to Dr. Valdez. Dr. Valdez provides orders. Verbal orders repeated back and verified.
--- NOTE | 2024-05-10 08:49 | PC.NURSE ---
cervical exam result reported to Dr. Valdez. No new orders received at this time.
[2024-05-10] MEDS: 0.9 % SODIUM CHLORIDE 1,000 ML 1000 ML IV ×2 (08:53→10:18)
[2024-05-10] MEDS: NALBUPHINE HCL 10 MG/ML AMPULE IV (09:01)
--- NOTE | 2024-05-10 09:02 | PC.NURSE ---
RN at bedside to administer Dr. Valdez's ordered medications. Patient express much relief from Nubain and is requesting to hold off on Phenergan at this time due to so much relief just from Nubain. RN instructs patient to call out if wanting the Phenergan to be given and patient verbalizes understanding. Patient expresses pain is 0/10 at this time.
[2024-05-10 09:05] LABS: Basophils Percent Auto 0.4 % (0.2-2.0); Eosinophils Percent Auto 0.5 % (0.9-7.0); Hematocrit 29.6 % (36.0-48.0); Hemoglobin 9.7 g/dL (12.0-16.0); Immature Granulocytes Abs Auto 0.02 10^3/uL (0.00-0.03); Immature Granulocytes Pct Auto 0.3 % (0.0-0.5); Lymphocytes Absolute Auto 1.8 10^3/uL (1.2-3.8); Lymphocytes Percent Auto 22.3 % (20.5-60.0); Mean Corpuscular HGB Conc 32.8 g/dL (29.9-35.2); Mean Corpuscular Hemoglobin 31.4 pg (26.7-34.0); Mean Corpuscular Volume 95.8 fL (81.0-99.0); Mean Platelet Volume 11.6 fL (9.5-13.5); Monocytes Absolute Auto 0.5 10^3/uL (0.3-0.8); Monocytes Percent Auto 6.3 % (1.7-12.0); Neutrophils Absolute Auto 5.6 10^3/uL (1.4-6.5); Neutrophils Percent Auto 70.2 % (43.0-75.0); Platelet Count 181 10^3/uL (150-450); Red Blood Count 3.09 10^6/uL (4.20-5.40); White Blood Count 7.9 10^3/uL (4.0-11.0)
--- NOTE | 2024-05-10 09:14 | PC.NURSE ---
patient calls RN into room and wants Phenergan due to pain returned already at 05/20.
[2024-05-10] MEDS: PROMETHAZINE HCL 12.5 MG in 0.9 % SODIUM CHLORIDE 50 ML 202 MG IV (09:15)
[2024-05-10 09:24] LABS: Alanine Aminotransferase 8 U/L (14-59); Albumin Globulin Ratio 0.7; Albumin Level 2.9 g/dL (3.4-5.0); Alkaline Phosphatase 42 U/L (46-116); Amylase 34 U/L (25-115); Anion Gap 15.1; Aspartate Amino Transferase 14 U/L (15-37); BUN Creatinine Ratio 9.5; Bilirubin Total 0.5 mg/dL (0.2-1.0); Calcium 8.8 mg/dL (8.5-10.1); Carbon Dioxide 24.8 mmol/L (21.0-32.0); Chloride 103 mmol/L (98-107); Estimated GFR (African America >60 (>=60 mL/min/1.73m^2); Estimated GFR (Non-African Ame >60 (>=60 mL/min/1.73m^2); Globulin 4.2 g/dL; Glucose 106 mg/dL (74-106); Potassium 3.9 mmol/L (3.5-5.1); Sodium 139 mmol/L (136-145); Total Protein 7.1 g/dL (6.4-8.2)
--- NOTE | 2024-05-10 10:20 | PC.NURSE ---
patient at 0/10 pain.
--- NOTE | 2024-05-10 10:21 | PC.NURSE ---
Dr. Valdez calls in to check on status of patient and RN provides report to Dr. Valedz. No new orders received at this time. RN at [facility] and patient states my last infusion for my crohn's was april 19 2024. my first flare up was around the beginning of the month of April. I started taking medications regularly at that time. my GI doctor is Dr. Thom Montiel in [facility].
[2024-05-10 13:30] LABS: Bilirubin Urine NEGATIVE (NEGATIVE); Blood Urine NEGATIVE (NEGATIVE); Clarity Urine CLEAR (CLEAR); Color Urine LT. YELLOW (YELLOW); Glucose Urine UA NEGATIVE (NEGATIVE); Ketones Urine 15 mg/dL (NEGATIVE); Leukocyte Esterase Urine NEGATIVE (NEGATIVE); Nitrite Urine NEGATIVE (NEGATIVE); Protein Urine NEGATIVE (NEG/TRACE); Specific Gravity Urine 1.015 (1.005-1.025); Urobilinogen Urine 0.2 EU/dL (0.2-1.0); pH Urine 6.5 (5.0-9.0)
[2024-05-10 13:31] LABS: Urine Microscopic Indicated NO
== END 2024-05-10 17:30 | disposition home or self-care (01) ==
LOC: ER 07:08 → FBC 07:23
PROVIDERS: Admitting Provider Obstetrics & Gynecology; Emergency Provider Emergency Medicine; PCP Nurse Practitioner; Visit Provider Obstetrics & Gynecology
DX: O99.891 Other specified diseases and conditions complicating pregnancy (principal); R10.9 Unspecified abdominal pain; Z3A.26 26 weeks gestation of pregnancy
CPT/HCPCS: 36415; 80053; 81003; 82150; 83690; 85025; 96374; 96375; 99282; G0378; J2300; J2550

== ENCOUNTER 2024-05-27 11:37 | Observation (INO) | payer OTHER, MEDICAID, SELFPAY ==
--- OUTSIDE RECORDS SUMMARY | 2024-05-27 11:43 | XMS_ITS | CCD ---
Author Organization [facility] Care Team Providers Care Turnaround Engineer Name Role Phone ADAMOWICZ, SAMARA J Unavailable Unavailable ADAMOWICZ, SAMARA J Unavailable Unavailable ADAMOWICZ, SAMARA J Unavailable Unavailable ADAMOWICZ, SAMARA J Unavailable Unavailable ADAMOWICZ, SAMARA J Unavailable Unavailable ADAMOWICZ, SAMARA J Unavailable Unavailable ADAMOWICZ, SAMARA J Unavailable Unavailable ADAMOWICZ, SAMARA J Unavailable Unavailable SEBASTIAN HERRING Attending Unavailable SEBASTIAN HERRING Consulting Unavailable SEBASTIAN HERRING Admitting Unavailable MISDR JUAN A Johnson Primary Care Unavailable Hilary Aviles MD Unavailable Traci DISPATCH LEAD-EMPLOYMENT SUPERVISOR, Hilary A Primary Care Provi lazarus Traci DISPATCH LEAD-EMPLOYMENT SUPERVISOR, Hilary A Primary Care Provi lazarus Traci DISPATCH LEAD-EMPLOYMENT SUPERVISOR, Hilary A Primary Care Provi lazarus HILARY AVILES A Attending Unavailable TRACI HILARY A Referring Unavailable TRACI HILARY A Primary Care Unavailable HILARY AVILES A Attending Unavailable TRACI HILARY A Referring Unavailable TRACI, HILARY A Primary Care Unavailable TRACI, HILARY A Attending Unavailable TRACI, HILARY A Referring Unavailable TRACI, HILARY A Primary Care Unavailable RAULITO JIMENEZ Attending Unavailable FRANK AVILESITH A Referring Unavailable TRACI, HILARY A Primary Care Unavailable MJ PIZARRO Referring Unavailable TRACI, HILARY A Primary Care Unavailable TRACI, HILARY A Referring Unavailable TRACI, HILARY A Primary Care Unavailable DOMINIQUE MOYA Attending Unavailable HILARY AVILES A Primary Care Unavailable RAULITO SIDDIQUI Attending Unavailab alise TRACI, HILARY A Primary Care Unavailable DEE, SESAR Attending Unavailable RAULITO JIMENEZ Referring Unavailable TRACI, HILARY A Primary Care Unavailable FLORENCIA, YAQUELIN Attending Unavailable COURTNEY, PARISH Attending Unavailable FLORENCIA, YAQUELIN Attending Unavailable COURTNEY, PARISH Attending Unavailable FLORENCIA, YAQUELIN Attending Unavailable COURTNEY, PARISH Attending Unavailable TRACI, HILARY A Referring Unavailable [...] TRACI, HILARY A Primary Care Unavailable TRACI, HILRAY A Referring Unavailable TRACI, HILARY A Primary Care Unavailable SHARDA MONTIEL B Attending Unavailable TRACI, HILARY A Referring Unavailable TRACI, HILARY A Primary Care Unavailable TRACI, HILARY A Referring Unavailable TRACI, HILARY A Primary Care Unavailable SHARDA MONTIEL B Referring Unavailable TRACI, HILARY A Primary Care Unavailable Allergies Allergy Classification Reported Allergen(s) Allergy Type Date of Onset Reaction(s) Facility (20 sources) Sertraline; Translations: [SERTRALINE] Drug Allergy 11-09-2018 [facility] Current Medications Medication Drug Class(es) Dates Sig (Normalized) Sig (Original) acetaminophen 325 mg / HYDROcodone bitartrate 5 mg oral tablet (11 sources) Opioid Agonist Start: 04-20-2024 take 1 tablet by mouth every six hours for pain HYDROcodone-acetaminop hen ([place]) 5-325 MG tablet Indications: Abdominal pain, unspecified abdominal location , Crohn's disease with complication, unspecified gastrointestinal tract location (CMS/HCC) Take 1 tablet by mouth every 6 (six) hours if needed for moderate pain or severe pain for up to 15 doses 15 tablet 04/20/2024 Active [id number] 200 actuat albuterol 0.09 mg/actuat metered dose [...] morning. 90 tablet 1 06/15/2024 Active Start: 05-06-2025 take 1 tablet by anat th in [...] Active End: 08-20-2023 cyanocobalamin/folic acid (v itamin N25-lajuy acid) 1,000-400 mcg lozenge B12 08/20/2023 Discontinued [...] Discontinued labetalol hydrochloride 100 mg oral tablet (3 sources) beta-Adrenergic Stephanie Start: 05-06-2024 End: 06-05-2024 take [...] Active ondansetron 4 mg disintegrating oral tablet (17 sources) Serotonin-3 Receptor Antagonist Start: 12-29-2023 End: [...] polysaccharide iron complex 391 mg oral capsule (11 sources) Start: 05-03-2024 End: 06-02-2024 take 1 [...] Active vit no.124/iron/fol ic ( VITAMIN ORAL) (13 sources) take 1 tablet by mouth in [...] % 250 mL IVPB (3 sources) Start: 05-24-2024 End: 05-24-2024 400 mg (rounded from 431.5 m g = 5 mg/kg 86.3 kg), intravenous, Once, On Fri05/24/24 at 1130, For 1 dose, Infuse over at least [...] using 0.2 - 1.2 micron filter. Start: 04-19-2024 End: 04-19-2024 400 mg (rounded [...] 1000 ml sodium chloride 9 mg/ml injection (10 sources) Start: 05-24-2024 End: 05-24-2024 take 25 mL intravenously every hour as needed 25 mL/hr, intravenous, Continuous PRN, When mainline IV needed., Starting on Fri05/24/24 at 1057, Match IVF to base solution of product being administered to ensure compatibility. Start: 04-19-2024 End: 04-19-2024 take 25 mL [...] disorder, unspecified] Onset: 9 12-14-2018 Chronic Asthma (1 source) Reactive airway disease; Translations: [Unspecified asthma with (acute) exacerbation] 02-20-2023 Chronic Coagulation and hemorrhagic disorders (2 sources) Thrombocytopenic disorder; Translations: [Thrombocytopenia, unspecified] Onset: 5 04-19-2024 Chronic Deficiency and other anemia (20 sources) Iron deficiency anemia due to blood loss; Translations: [Iron deficiency anemia secondary to blood loss (chronic)] Onset: 9 07-17-2018 Chronic Deficiency and other anemia (2 sources) Iron deficiency anemia secondary to blood loss (chronic); Translations: [Iron deficiency anemia secondary to blood loss (chronic)] Onset: 9 Chronic E Codes: Fall (1 source) Fall Onset: 4 Essential hypertension (2 sources) Hypertensive disorder; Translations: [Essential (primary) hypertension] Onset: 5 05-06-2024 Chronic Hypertension complicating ; childbirth and the puerperium (7 sources) Hypertension complicating ; Translations: [Unspecified maternal [...] [Encounter for therapeutic drug level monitoring] Onset: 5 Episodic Other complications of (4 sources) Anemia in mother complicating , childbirth [...] Onset: 1 08-28-2020 Chronic Other gastrointestinal disorders (2 sources) History of Crohns disease; Translations: [Personal history of other diseases of the digestive system] 05-26-2024 Episodic Other inflammatory condition of skin (20 sources) Scalp psoriasis; 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, unspecified] Onset: 9 12-14-2018 Chronic Other and delivery including normal (14 sources) ; Translations: [Encounter for supervision of [...] Onset: 9 03-03-2018 Chronic Residual codes; unclassified (2 sources) Gestation period, [...] of ] 05-06-2024 Episodic Residual codes; unclassified (2 sources) 26 weeks gestation of ; Translations: [26 weeks gestation of ] Onset: Episodic Residual codes; unclassified (2 sources) Gestation period, 27 weeks; Translations: [27 weeks gestation of ] 05-12-2024 Episodic Residual codes; unclassified (2 sources) Gestation period, 29 weeks; Translations: [29 weeks gestation of ] 05-26-2024 Episodic Unclassified (1 source) Er Follow-up Onset: 5 Unclassified (1 source) FMLA Onset: 4 Unclassified (1 source) Constipation, Early Onset: 4 Unclassified (1 source) Outpatient Infusion Onset: 5 Past or Other Problems Problem Classification Problem Date Documented Da te Episodic/Chronic Deficiency and other anemia (20 sources) Microcytic [...] [Iron deficiency anemia, unspecified] Onset: 08-28-2020 Episodic E Codes: Fall (1 source) Fall (on) (from) unspecified stairs and steps, initial encounter; Translations: [Fall (on) (from) unspecified stairs and steps, initial encounter] Onset: 01-31-2024 Episodic Intestinal obstruction without hernia (20 sources) [...] Onset: 10-17-2017 Resolved: 05-08-2022 05-08-2022 Episodic Other gastrointestinal disorders (1 source) Constipation, unspecified; Translations: [Constipation, unspecified] Onset: 01-03-2024 Episodic Other gastrointestinal disorders (1 source) Constipation Onset: 01-03-2024 Episodic Other lower respiratory disease (20 sources) [...] weeks gestation of ] Onset: 01-31-2024 Episodic Viral infection (20 sources) Disease caused by 2019-nCoV; Translations: [COVID-19] Onset: 01-22-2021 01-22-2021 Episodic Results Test Name Value Interpretation Reference Range Facility Urinalysis macro (dipstick) panel (U)on 05-12-2024 Bilirubin, UA Negative Negative - 4(70) +++ mg/dL [facility] Blood, UA Negative Negative - 50 Enrriqeu/mcL [facility] Clarity, UA Cloudy [facility] Color, UA [place] [facility] Glucose, UA Negative Negative - 2000(110) ++++ mg/dL [facility] Interpretation and review of laboratory results Abnormal [facility] Ketones, UA Positive Negative - 160(16) ++++ mg/dL [facility] Comment on above: 15 Leukocytes, UA Negative Negative - 500+++ Cam/mcL [facility] Nitrite, UA Negative Negative - Positive [facility] pH, UA 6 5 - 9 [facility] Protein, UA Positive Negative - 2000(20) ++++ mg/dL [facility] Comment on above: 30 Spec Grav, UA 1.025 1 - 1.03 [facility] Urobilinogen, UA 1.0 0.2 - 12 mg/dL [facility] ALL CBC WITH AUTO DIFFon BASOPHILS ABSOLUTE AUTO 0 [facility] Basophils/100 WBC (Bld) 0.4 % 0.2 - 2.0 % [facility] Eosinophils/100 WBC (Bld) 0.5 % Low 0.9 - 7.0 % [facility] Erythrocyte distribution width (RBC) [Ratio] 15 % 11.0 - 15.0 % [facility] Hematocrit (Bld) [Volume fraction] 29.6 % Low 36.0 - 48.0 % [facility] Hemoglobin (Bld) [Mass/Vol] 9.7 g/dL Low 12.0 - 16.0 g/dL [facility] IMMATURE GRANULOCYTES ABS AUTO 0.02 [facility] Immature granulocytes/100 WBC (Bld) 0.3 % 0.0 - 0.5 % [facility] Interpretation and review of laboratory results Abnormal [facility] LYMPHOCYTES ABSOLUTE AUTO 1.8 [facility] Lymphocytes/100 WBC (Bld) 22.3 % 20.5 - 60.0 % [facility] MCH (RBC) [Entitic mass] 31.4 pg 26.7 - 34.0 pg [facility] MCHC (RBC) [Mass/Vol] 32.8 g/dL 29.9 - 35.2 g/dL [facility] MCV (RBC) [Entitic vol] 95.8 fL 81.0 - 99.0 fL [facility] MONOCYTES ABSOLUTE AUTO 0.5 [facility] Monocytes/100 WBC (Bld) 6.3 % 1.7 - 12.0 % [facility] NEUTROPHILS ABSOLUTE AUTO 5.6 [facility] Neutrophils/100 WBC (Bld) 70.2 % 43.0 - 75.0 % [facility] Platelet mean volume (Bld) [Entitic vol] 11.6 fL 9.5 - 13.5 fL [facility] TBH EO # 0 [facility] PLT [address] [facility] RBC 3.[address] [facility] WBC 7.9 [facility] GLUCOSE TOLERANCE 3 HOURon 0 05-08-2024 GLUCOSE TOLERANCE 3 HOUR mg/dL [facility] Comment on above: GLU FAST 90 (<95) Co l: 05/08/24 0806 GLU 1HR 159 (<180) Col: 05/08/24 0913 GLU 2HR 142 (<155) Col: 05/08/24 1013 GLU 3HR 117 (<140) Col: 05/08/24 1113 [facility] [place] Ultrasound - OfficeOrdered B y: Rachelle Arredondo on 05-04-2024 Radiology Study observation (narrative) [facility] Urinalysis macro (dipstick) panel (U)on 04-26-2024 Bilirubin, UA Negative Negative - 4(70) +++ mg/dL [facility] Blood, UA Negative Negative - 50 Enrrique/mcL [facility] Clarity, UA Clear [facility] Color, UA Yellow [facility] Glucose, UA Negative Negative - 1999(110) ++++ mg/dL [facility] Interpretation and review of laboratory results Abnormal [facility] Ketones, UA Positive Negative - 160(16) ++++ mg/dL [facility] Leukocytes, UA Negative Negative - 500+++ Cam/mcL [facility] Nitrite, UA Negative Negative - Positive [facility] pH, UA 6.5 5 - 9 [facility] Protein, UA Negative Negative - 1999(20) ++++ mg/dL [facility] Spec Grav, UA 1.03 1 - 1.03 [facility] Urobilinogen, UA 1.0 0.2 - 12 mg/dL [facility] US OB LIMITED 1+ FETUSESon 0 [...] II, MD, PHD at 22-Apr-2024 09:07:11 AM [facility] Normal Not Available Comment on above: Order Comment: US OB INCOMPLETE ANATOMY Estimated Date of Delivery: 08/11/24 Gestational Age as of 03/25/2024: 20w1d CBC AND AUTO DIFFon 04-20-19 ABSOLUTE BASOPHIL 0.0 X10E9/L Normal 0.0-0.2 [facility] Comment on above: Performed By: #### 2 276-4, CBCA, FEPR #### [facility] ([id number]) [address], [address] [place] [address] ABSOLUTE NEUTROPHIL 5.2 X10E9/L Normal 1.5-6.6 [facility] Comment on above: Performed By: #### 2 276-4, CBCA, FEPR #### [facility] ([id number]) [address], [address] [place] [address] Basophils/100 WBC (Bld) 0.4 % Normal [facility] Comment on above: Performed By: #### 2 276-4, CBCA, FEPR #### [facility] ([id number]) [address] [address] [place] [address] Eosinophils (Bld) [#/Vol] 0.0 10*3/uL Normal 0.0-0.4 [facility] Comment on above: Performed By: #### 2 276-4, CBCA, FEPR #### [facility] ([id number]) [address] [place] [address] Eosinophils/100 WBC (Bld) 0.6 % Normal [facility] Comment on above: Performed By: #### 2 276-4, CBCA, FEPR #### [facility] ([id number]) [address] [place] [address] Erythrocyte distribution width (RBC) [Ratio] 14.6 % Normal 11.5-15.0 [facility] Comment on above: Performed By: #### 2 276-4, CBCA, FEPR #### [facility] ([id number]) [address] [place] [address] Hematocrit (Bld) [Volume fraction] 32.4 % Low 35-47 [facility] Comment on above: Performed By: #### 2 276-4, CBCA, FEPR #### [facility] ([id number]) [address], [address] [place] [address] Hemoglobin (Bld) [Mass/Vol] 10.7 g/dL Low 11.7-15.5 [facility] Comment on above: Performed By: #### 2 276-4, CBCA, FEPR #### [facility] ([id number]) [address] [place] [address] Lymphocytes (Bld) [#/Vol] 1.9 10*3/uL Normal 1.0-3.5 [facility] Comment on above: Performed By: #### 2 276-4, CBCA, FEPR #### [facility] ([id number]) [address], [facility] [address] [place] [address] Lymphocytes/100 WBC (Bld) 24.8 % Normal [facility] Comment on above: Performed By: #### 2 276-4, CBCA, FEPR #### [facility] ([id number]) [address], [facility] [address] [place] [address] MCH (RBC) [Entitic mass] 30.9 pg Normal 27-34 [facility] Comment on above: Performed By: #### 2 276-4, CBCA, FEPR #### [facility] ([id number]) [address], [address] [place] [address] MCHC (RBC) [Mass/Vol] 33.0 g/dL Normal 32-36 [facility] Comment on above: Performed By: #### 2 276-4, CBCA, FEPR #### [facility] ([id number]) [address], [facility] [address] [place] [address] MCV (RBC) [Entitic vol] 94 fL Normal 80-100 [facility] Comment on above: Performed By: #### 2 276-4, CBCA, FEPR #### [facility] ([id number]) [address] [address] [place] [address] Monocytes (Bld) [#/Vol] 0.5 10*3/uL Normal 0-0.9 [facility] Comment on above: Performed By: #### 2 276-4, CBCA, FEPR #### [facility] ([id number]) [address], [facility] [address] [place] [address] Monocytes/100 WBC (Bld) 6.5 % Normal [facility] Comment on above: Performed By: #### 2 276-4, CBCA, FEPR #### [facility] ([id number]) [address], [facility] [address] [place] [address] Neutrophils/100 WBC (Bld) 67.7 % Normal [facility] Comment on above: Performed By: #### 2 276-4, CBCA, FEPR #### [facility] ([id number]) [address], [facility] [address] [place] [address] Platelet mean volume (Bld) [Entitic vol] 10.8 fL Normal 7-12 [facility] Comment on above: Performed By: #### 2 276-4, CBCA, FEPR #### [facility] ([id number]) [address], [facility] [address] [place] [address] Platelets (Bld) [#/Vol] 162 10*3/uL Normal 150-450 [facility] Comment on above: Performed By: #### 2 276-4, CBCA, FEPR #### [facility] ([id number]) [address], [facility] [address] [place] [address] RBC COUNT 3.46 X10E12/L Low 3.80-5.20 [facility] Comment on above: Performed By: #### 2 276-4, CBCA, FEPR #### [facility] ([id number]) [address], [facility] [address] [place] [address] WBC (Bld) [#/Vol] 7.7 10*3/uL Normal 4.0-11.0 [facility] Comment on above: Performed By: #### 2 276-4, CBCA, FEPR #### [facility] ([id number]) [address], [address] [place] [address] FERRITINon 04-19-2024 Ferritin [Mass/Vol] 9 ng/mL Low 11-307 [facility] Comment on above: Performed By: #### 2 276-4, CBCA, FEPR #### [facility] ([id number]) [address], [address] [place] [address] IRON PROFILEon 04-19-2024 Iron [Mass/Vol] 78 ug/dL Normal 50-170 [facility] Comment on above: Performed By: #### 2 276-4, CBCA, FEPR #### [facility] ([id number]) [address], [address] [place] [address] IRON BINDING 475 ug/dL High 250-425 [facility] Comment on above: Performed By: #### 2 276-4, CBCA, FEPR #### [facility] ([id number]) [address], [address] [place] [address] IRON SATURATION 16 % SATURATION Normal 15-50 [facility] Comment on above: Performed By: #### 2 276-4, CBCA, FEPR #### [facility] ([id number]) [address], [address] [place] [address] THIOPURINE METABOLITESon 6 METHYLMERCAPTOPRNE <475 Normal < or = 5700 [facility] Comment on above: Result Comment: NOTE Result not quantifiable; below the limit of quantitation. Decreased risk of hepatotoxicity. ADDITIONAL INFORMATION Testing performed by Liquid Chromatography-Tandem Mass Spectrometry (LC-MS/MS) This test was developed and its performance characteristics determined by [facility] in a manner consistent with CLIA requirements. This test has not been cleared or approved by the U.S. Food and Drug Administration. Test Performed by: [facility] [address] [id number] [employer] Cutting Machine Operator: Celi Fernandez Ph.D.; CLIA# [id number] Performed By: #### 2 276-4, CBCA, FEPR #### [facility] ([id number]) [address], [address] [place] [address] 6 THIOGUANINE 101 pmol/8x10(8)RBC Low 235 - 450 [facility] Comment on above: Result Comment: NOTE Decreased possibility of response; suboptimal dosing or noncompliance. Performed By: #### 2 276-4, CBCA, FEPR #### [facility] ([id number]) [address] [place] [address] VITAMIN B12on 04-19-2024 Cobalamin (Vitamin B12) [Mass/Vol] 143 pg/mL Low 180-914 [facility] Comment on above: Performed By: #### 2 276-4, CBCA, FEPR #### [facility] ([id number]) [address] [place] [address] Vitamin D+Metabolites [Mass/ Vol]on 04-19-2024 VITAMIN D 25 HYD TOT 12.0 ng/mL Low 30-100 [facility] Comment on above: Result Comment: Vitamin D status 25 [place] Vitamin D Deficiency <20 ng/mL Insufficiency 20-29 ng/mL Sufficiency 30-100 ng/mL Toxicity >100 ng/mL NOTE: A pediatric reference range has not been established by the skin care specialist of this kit. The [employer] [employer] recommends a Vitamin D level of = or >20ng/mL in infants and children. Performed By: #### 2 276-4, CBCA, FEPR #### [facility] ([id number]) [address], [address] [place] [address] No Panel Informationon 03-24 Radiology Study observation (narrative) [facility] US OB ANATOMYon 03-24-2024 [place] [address] Ultrasound Report Signed Patient: JUAN LUIS STOREY MR#: [id number] : 1990 Acct:[id number] Age/Sex: 33 / F ADM Date: 03/24/24 Loc: US Attending Dr: Parish Valdez D.O. Ordering Physician: Parish Valdez D.O. Date of Service: 03/24/24 Procedure(s): US OB anatomy Accession Number(s): [id number] cc: Parish Valdez D.O.; Hilary Aviles NP [place] [id number] Patient Name: JUAN LUIS STOREY MRN: [id number] date: 1990 Sex: F Assigned Patient Location: US Current Patient Location: US Accession/Order Number: [id number] Exam Date: 03/24/2024 10:45 Report Date: 03/24/2024 [...] Signed By: 03/24/24 1139 DD/ 1136 TD/TT: Wire Preparation Machine Tender: [facility] Radiology, Radiologi MD perla - 03/24/2024 [place] [address] Ultrasound Report Signed Patient: JUAN LUIS STOREY MR#: [id number] : 1990 Acct:[id number] Age/Sex: 33 / F ADM Date: 03/24/24 Loc: US Attending Dr: Parish Valdez D.O. Ordering Physician: Parish Valdez D.O. Date of Service: 03/24/24 Procedure(s): US OB anatomy Accession Number(s): [id number] cc: Parish Valdez D.O.; Hilary Aviles NP [address] [place] [address] Patient Name: JUAN LUIS STOREY MRN: [facility]:[id number] date: 1990 Sex: F Assigned Patient Location: US Current Patient Location: US Accession/Order Number: [id number] Exam Date: 03/24/2024 10:45 Report Date: 03/24/2024 [...] Signed By: 03/24/24 1139 DD/ 1136 TD/TT: Wire Preparation Machine Tender: [facility] [employer] US OB ANATOMYOrdered By: Sergio iologbruna Radiology on 03-24-2024 [employer] Work Phone: US OB CERVICAL LENGTHon 03-[address] [address] Ultrasound Report Signed Patient: JUAN LUIS STOREY MR#: [id number] : 1990 Acct:[id number] Age/Sex: 33 / F ADM Date: 03/24/24 Loc: US Attending Dr: Parish Valdez D.O. Ordering Physician: Parish Valdez D.O. Date of Service: 03/24/24 Procedure(s): US OB cervical length Accession Number(s): [id number] cc: Parish Valdez D.O.; Hilary Aviles NP [place] [id number] Patient Name: JUAN LUIS STOREY MRN: [id number] date: 1990 Sex: F Assigned Patient Location: US Current Patient Location: US Accession/Order Number: [id number] Exam Date: 03/24/2024 10:45 Report Date: 03/24/2024 [...] Signed By: 03/24/24 1138 DD/ 1136 TD/TT: Wire Preparation Machine Tender: [facility] Radiology, Radiologi MD perla - 03/24/2024 [place] [address] Ultrasound Report Signed Patient: JUAN LUIS STOREY MR#: [id number] : 1990 Acct:[id number] Age/Sex: 33 / F ADM Date: 03/24/24 Loc: US Attending Dr: Parish Valdez D.O. Ordering Physician: Parish Valdez D.O. Date of Service: 03/24/24 Procedure(s): US OB cervical length Accession Number(s): [id number] cc: Parish Valdez D.O.; Hilary Aviles NP [address] [place] [id number] Patient Name: JUAN LUIS STOREY MRN: [facility]:[id number] date: 1990 Sex: F Assigned Patient Location: US Current Patient Location: US Accession/Order Number: [id number] Exam Date: 03/24/2024 10:45 Report Date: 03/24/2024 [...] Signed By: 03/24/24 1138 DD/ 1136 TD/TT: Wire Preparation Machine Tender: [facility] US OB CERVICAL LENGTHOrdered By: Radiologist Radiology on 03-24-2024 [facility] Work Phone: Ultrasound - OfficeOrdered B y: Rachelle Arredondo on 03-24-2024 [facility] Unlisted Lab Teston 03-24-19 [facility] RECURRENT VAGINITIS (HTRX)on 03-18-2024 ATOPOBIUM VAGINAE 0 [facility] ATOPOBIUM VAGINAE Not detected [facility] BVAB 2,3 (BACTERIAL VAGINOSIS ASSOCIATED BACTERIA 2, 3); MOBILUNCUS SPP 0 [facility] BVAB 2,3 (BACTERIAL VAGINOSIS ASSOCIATED BACTERIA 2, 3); MOBILUNCUS SPP Not detected [facility] WARD ALBICANS, PARAPSILOSIS, TROPICALIS 0 [facility] WARD ALBICANS, PARAPSILOSIS, TROPICALIS Not detected [facility] WARD GLABRATA 0 [facility] WARD GLABRATA Not detected [facility] WARD [...] [facility] US OB CERVICAL LENGTHon 02-12 [place] [address] Ultrasound Report Signed Patient: JUAN LUIS STOREY MR#: [id number] : 1990 Acct:[id number] Age/Sex: 33 / F ADM Date: 03/11/24 Loc: US Attending Dr: Parish Valdez D.O. Ordering Physician: Parish Valdez D.O. Date of Service: 03/11/24 Procedure(s): US OB cervical length Accession Number(s): [id number] cc: Parish Valdez D.O.; Hilary Aviles NP [place] [address] Patient Name: JUAN LUIS STOREY MRN: [id number] date: 1990 Sex: F Assigned Patient Location: US Current Patient Location: US Accession/Order Number: [id number] Exam Date: 03/11/2024 10:15 Report Date: 03/11/2024 [...] Signed By: 03/11/24 1056 DD/ 1053 TD/TT: Wire Preparation Machine Tender: [facility] Radiology, Radiologi MD perla - 03/11/2024 [place] [address] Ultrasound Report Signed Patient: JUAN LUIS STOREY MR#: [id number] : 1990 Acct:[id number] Age/Sex: 33 / F ADM Date: 03/11/24 Loc: US Attending Dr: Parish Valdez D.O. Ordering Physician: Parish Valdez D.O. Date of Service: 03/11/24 Procedure(s): US OB cervical length Accession Number(s): [id number] cc: Parish Valdez D.O.; Hilary Aviles NP [facility] [place] [address] Patient Name: JUAN LUIS STOREY MRN: [facility]:[id number] date: 1990 Sex: F Assigned Patient Location: US Current Patient Location: Accession/Order Number: [id number] Exam Date: 03/11/2024 10:15 Report Date: 03/11/2024 [...] Signed By: 03/11/24 1056 DD/ 1053 TD/TT: Wire Preparation Machine Tender: [facility] Radiology Study observation (narrative) [facility] US OB CERVICAL LENGTHOrdered By: Radiologist Radiology on 03-11-2024 [facility] Work Phone: Urinalysis macro (dipstick) panel (U)on 02-18-2024 Bilirubin, UA Negative Negative - 4(70) +++ mg/dL [facility] Blood, UA Positive Negative - 50 Enrrique/mcL [facility] Comment on above: trace Clarity, UA Clear [facility] Color, UA Yellow [facility] Glucose, UA Negative Negative - 2000(110) ++++ mg/dL [facility] Interpretation and review of laboratory results Abnormal [facility] Ketones, UA Positive Negative - 160(16) ++++ mg/dL [facility] Comment on above: trace Leukocytes, UA Trace Negative - 500+++ Cam/mcL [facility] Nitrite, UA Negative Negative - Positive [facility] pH, UA 7 5 - 9 [facility] Protein, UA Positive Negative - 2000(20) ++++ mg/dL [facility] Comment on above: 30 Spec Grav, UA 1.03 1 - 1.03 [facility] Urobilinogen, UA 1.0 0.2 - 12 mg/dL [facility] ALL CBC WITH AUTO DIFFon BASOPHILS ABSOLUTE AUTO 0 [facility] Basophils/100 WBC (Bld) 0.2 % 0.2 - 2.0 % [facility] Eosinophils/100 WBC (Bld) 0.9 % 0.9 - 7.0 % [facility] Erythrocyte distribution width (RBC) [Ratio] 12.5 % 11.0 - 15.0 % [facility] Hematocrit (Bld) [Volume fraction] 35.3 % Low 36.0 - 48.0 % [facility] Hemoglobin (Bld) [Mass/Vol] 11.8 g/dL Low 12.0 - 16.0 g/dL [facility] IMMATURE GRANULOCYTES ABS AUTO 0.03 [facility] Immature granulocytes/100 WBC (Bld) 0.4 % 0.0 - 0.5 % [facility] Interpretation and review of laboratory results Abnormal [facility] LYMPHOCYTES ABSOLUTE AUTO 2.4 [facility] Lymphocytes/100 WBC (Bld) 29.2 % 20.5 - 60.0 % [facility] MCH (RBC) [Entitic mass] 32 pg 26.7 - 34.0 pg [facility] MCHC (RBC) [Mass/Vol] 33.4 g/dL 29.9 - 35.2 g/dL [facility] MCV (RBC) [Entitic vol] 95.7 fL 81.0 - 99.0 fL [facility] MONOCYTES ABSOLUTE AUTO 0.5 [facility] Monocytes/100 WBC (Bld) 6.5 % 1.7 - 12.0 % [facility] NEUTROPHILS ABSOLUTE AUTO 5.1 [facility] Neutrophils/100 WBC (Bld) 62.8 % 43.0 - 75.0 % [facility] Platelet mean volume (Bld) [Entitic vol] 12 fL 9.5 - 13.5 fL [facility] TBH EO # 0.1 [facility] PLT 194 [facility] RBC 3.[address] [facility] WBC 8.2 [facility] CLINISYNC No Panel Informationon 02-13 [facility] Rubella IGG immune statuson 02-14-2024 Rubella immune IgG immune [facility] Syphilis Total(Unknown Syphi lis Status)Ordered By: Rachelle Arredondo on 02-14-2024 Syphilis Non-Reactive [facility] BASIC METABOLIC PANLon 01-25 Anion gap [Moles/Vol] 9 mmol/L Normal 5-15 [facility] Comment on above: Performed By: #### Elizabeth CARLOS, 2131-10, LIVR, BMP, 1987-, 26947-9, 24027-3 #### [facility] ([id number]) [address] [place] [address], [address] [place] [address] #### THMET #### [facility] ([id number]) [address] [facility], Calcium [Mass/Vol] 8.6 mg/dL Normal 8.5-10.5 [facility] Comment on above: Performed By: #### Elizabeth CARLOS, 2131-10, LIVR, BMP, 1987-06, 12693-1, 57427-3 #### [facility] ([id number]) [address] [place] [address], [place] [address] #### THMET #### [facility] ([id number]) [address] [place] [address], Chloride [Moles/Vol] 104 mmol/L Normal 98-109 [facility] Comment on above: Performed By: #### C BREANNA, 2131-10, LIVR, BMP, 1987-06, 77450-7, 13223-7 #### [facility] ([id number]) [address] [place] [address] #### THMET #### [facility] ([id number]) [address] [place] [address], CO2 [Moles/Vol] 21 mmol/L Low 22-32 [facility] Comment on above: Performed By: #### C BREANNA, 2131-10, LIVR, BMP, 1987-06, 17848-1, 15813-0 #### [facility] ([id number]) [address] [place] [address], [address] [place] [address] #### THMET #### [facility] ([id number]) [address] [place] [address], Creatinine [Mass/Vol] 0.56 mg/dL Normal 0.40-1.00 [facility] Comment on above: Result Comment: METH OD TRACEABLE TO IDMS STANDARD Performed By: #### C BREANNA, 2131-10, LIVR, BMP, 1987-06, 12820-6, 88429-5 #### [facility] ([id number]) [address] [place] [address], [address] [place] [address] #### THMET #### [facility] ([id number]) [address] [place] [address], eGFR (CKD-EPI) NON-RACE DEPENDENT >90 Normal >59 [facility] Comment on above: Result Comment: Reported eGFR is based on the CKD-EPI 2020 equation that does not use a race coefficient. Performed By: #### C BREANNA, 2131-10, LIVR, BMP, 1987-06, 63715-2, 96876-7 #### [facility] ([id number]) [address] [facility], [address] [place] [address] #### THMET #### [facility] ([id number]) [address] [facility], Glucose [Mass/Vol] 73 mg/dL Normal 65-99 [facility] Comment on above: Performed By: #### C BREANNA, 2131-10, LIVAlessia, BMP, 1987-06, 57338-8, 77475-0 #### [facility] ([id number]) [address] [facility], [address] [place] [address] #### THMET #### [facility] ([id number]) [address] [place] [address], Potassium [Moles/Vol] 3.8 mmol/L Normal 3.5-5.0 [facility] Comment on above: Performed By: #### Elizabeth CARLOS, 2131-10, LIVR, BMP, 1987-06, 32755-4, 53183-4 #### [facility] ([id number]) [address] [facility], [address] [place] [address] #### THMET #### [facility] ([id number]) [address] [place] [address], Sodium [Moles/Vol] 134 mmol/L Normal 134-146 [facility] Comment on above: Performed By: #### Elizabeth CARLOS, 2131-10, LIVR, BMP, 1987-06, 89784-8, 07012-1 #### [facility] ([id number]) [address] [facility], [address] [place] [address] #### THMET #### [facility] ([id number]) [address] [place] [address], Urea nitrogen [Mass/Vol] 6 mg/dL Normal 5-23 [facility] Comment on above: Performed By: #### C BREANNA, 2131-10, LIVR, BMP, 1987-06, 08035-2, 61036-3 #### [facility] ([id number]) [address] [place] [address], [facility] [address] [place] [address] #### THMET #### [facility] ([id number]) [address] [place] [address], COMPLETE BLOOD COUNTon 01-25 Erythrocyte distribution width (RBC) [Ratio] 13.7 % Normal 11.5-15.0 [facility] Comment on above: Performed By: #### C BREANNA, 2131-10, LIVR, BMP, 1987-06, 85673-2, 99027-4 #### [facility] ([id number]) [address] [place] [address], [address] [place] [address] #### THMET #### [facility] ([id number]) [address] [place] [address], Hematocrit (Bld) [Volume fraction] 38.5 % Normal 35-47 [facility] Comment on above: Performed By: #### C BREANNA, 2131-10, LIVR, BMP, 1987-06, 37134-2, 54643-7 #### [facility] ([id number]) [address] [place] [address], [address] [place] [address] #### THMET #### [facility] ([id number]) [address] [place] [address], Hemoglobin (Bld) [Mass/Vol] 12.8 g/dL Normal 11.7-15.5 [facility] Comment on above: Performed By: #### C BREANNA, 2131-10, LIVR, BMP, 1987-06, 28412-2, 15081-7 #### [facility] ([id number]) [address] [facility], [address] [place] [address] #### THMET #### [facility] ([id number]) [address] [facility], MCH (RBC) [Entitic mass] 32.5 pg Normal 27-34 [facility] Comment on above: Performed By: #### Elizabeth CARLOS, 2131-10, LIVR, BMP, 1987-06, 73406-2, 03168-2 #### [facility] ([id number]) [address] [facility], [address] [place] [address] #### THMET #### [facility] ([id number]) [address] [place] [address], MCHC (RBC) [Mass/Vol] 33.3 g/dL Normal 32-36 [facility] Comment on above: Performed By: #### Elizabeth CARLOS, 2131-10, LIVR, BMP, 1987-06, 86077-3, 14116-2 #### [facility] ([id number]) [facility], [address] [place] [address] #### THMET #### [facility] ([id number]) [address] [place] [address], MCV (RBC) [Entitic vol] 98 fL Normal 80-100 [facility] Comment on above: Performed By: #### Elizabeth CARLOS, 2131-10, LIVR, BMP, 1987-06, 59470-4, 85208-0 #### [facility] ([id number]) [address] [facility], [address] [place] [address] #### THMET #### [facility] ([id number]) [address] [place] [address], Platelet mean volume (Bld) [Entitic vol] 11.2 fL Normal 7-12 [facility] Comment on above: Performed By: #### Elizabeth CARLOS, 2131-10, LIVR, BMP, 1987-06, 65137-3, 86180-7 #### [facility] ([id number]) [address] [place] [address], [facility] [address] [place] [address] #### THMET #### [facility] ([id number]) [address] [place] [address], Platelets (Bld) [#/Vol] 108 10*3/uL Low 150-450 [facility] Comment on above: Performed By: #### C BC, 2131-10, LIVR, BMP, 1987-06, 49056-7, 33780-3 #### [facility] ([id number]) [address] [place] [address] #### THMET #### [facility] ([id number]) [address] [place] [address], RBC COUNT 3.95 X10E12/L Normal 3.80-5.20 [facility] Comment on above: Performed By: #### C BC, 2131-10, LIVR, BMP, 1987-06, 86092-8, 11383-4 #### [facility] ([id number]) [address] [place] [address] #### THMET #### [facility] ([id number]) [address] [place] [address], WBC (Bld) [#/Vol] 7.2 10*3/uL Normal 4.0-11.0 [facility] Comment on above: Performed By: #### C BC, 2131-10, LIVR, BMP, 1987-06, 34022-3, 84650-9 #### [facility] ([id number]) [address] [place] [address] #### THMET #### [facility] ([id number]) [address] [place] [address], CRP [Mass/Vol]on 01-26-2024 C REACTIVE PROTEIN 0.7 mg/dL Normal 0.000-0.744 [facility] Comment on above: Performed By: #### C BREANNA, 2131-10, LIVR, BMP, 1987-06, 83817-0, 65467-1 #### [facility] ([id number]) [address] [place] [address], [address] [place] [address] #### THMET #### [facility] ([id number]) [address] [place] [address], ESR Photometric method (Bld) [Velocity]on 01-26-2024 ESR, ERYTHROCYTE SEDIMENTATION RATE 1 mm/h Normal 0-20 [facility] Comment on above: Performed By: #### Elizabeth CARLOS, 2131-10, LIVR, BMP, 1987-06, 97324-5, 58157-2 #### [facility] ([id number]) [address] [place] [address], [place] [address] #### THMET #### [facility] ([id number]) [address] [place] [address], LIVER PANELon 01-26-2024 Albumin [Mass/Vol] 3.7 g/dL Normal 3.2-5.3 [facility] Comment on above: Performed By: #### Elizabeth CARLOS, 2131-10, LIVR, BMP, 1987-06, 26375-6, 58382-8 #### [facility] ([id number]) [address] [place] [address], [place] [id number] #### THMET #### [facility] ([id number]) [address] [place] [address], ALP [Catalytic activity/Vol] 29 U/L Low 39-130 [facility] Comment on above: Performed By: #### Elizabeth CARLOS, 2131-10, LIVR, BMP, 1987-06, 11962-9, 75592-7 #### [facility] ([id number]) [address] [place] [address], [place] [id number] #### THMET #### [facility] ([id number]) [address] [facility], ALT [Catalytic activity/Vol] 8 U/L Normal 0-31 [facility] Comment on above: Performed By: #### Elizabeth CARLOS, 2131-10, LIVR, BMP, 1987-06, 68052-4, 74346-6 #### [facility] ([id number]) [address] [place] [address], [address] [address] #### THMET #### [facility] ([id number]) [address] [place] [address], AST [Catalytic activity/Vol] 19 U/L Normal 0-41 [facility] Comment on above: Performed By: #### Elizabeth CARLOS, 2131-10, LIVR, BMP, 1987-06, 64661-0, 71611-8 #### [facility] ([id number]) [address] [place] [address] #### THMET #### [facility] ([id number]) [address] [place] [address], Bilirubin [Mass/Vol] 0.4 mg/dL Normal 0.3-1.2 [facility] Comment on above: Performed By: #### Elizabeth CARLOS, 2131-10, LIVR, BMP, 1987-06, 63604-8, 41220-2 #### [facility] ([id number]) [address] [place] [address], [facility] [address] [place] [address] #### THMET #### [facility] ([id number]) [address] [place] [address], Bilirubin.direct [Mass/Vol] 0.1 mg/dL Normal 0.0-0.4 [facility] Comment on above: Performed By: #### Elizabeth CARLOS, 2131-10, LIVR, BMP, 1987-06, 77275-2, 61292-6 #### [facility] ([id number]) [address] [facility], [address] [place] [address] #### THMET #### [facility] ([id number]) [address] [facility], Protein [Mass/Vol] 7.0 g/dL Normal 6.0-8.0 [facility] Comment on above: Performed By: #### C BC, 2131-10, LIVR, BMP, 1987-06, 24237-0, 56863-9 #### [facility] ([id number]) [address] [facility], [address] [place] [address] #### THMET #### [facility] ([id number]) [address] [place] [address], THIOPURINE METABOLITESon 6 THIOGUANINE Not performed Normal [facility] Comment on above: Result Comment: NOTE Thiopurine Metabolites, B was cancelled on 02/02/2024 at 16:27; Quantity not sufficient to test. Test Performed by: [facility] [address] [place] [address] [employer] Cutting Machine Operator: Celi Fernandez Ph.D.; CLIA# [id number] Performed By: #### 2 276-4, CBCA, FEPR #### [facility] ([id number]) [address] [facility], [address] [place] [address] VITAMIN B12on 01-26-2024 Cobalamin (Vitamin B12) [Mass/Vol] 239 pg/mL Normal 180-914 [facility] Comment on above: Performed By: #### C BC, 2131-10, LIVR, BMP, 1987-06, 27644-1, 67176-9 #### [facility] ([id number]) [address] [place] [address], [address] [place] [address] #### THMET #### [facility] ([id number]) [address] [facility], Vitamin D+Metabolites [Mass/ Vol]on 01-26-2024 VITAMIN D 25 HYD TOT 10.1 ng/mL Low 30-100 [facility] Comment on above: Result Comment: Vitamin D status 25 [place] Vitamin D Deficiency <20 ng/mL Insufficiency 20-29 ng/mL Sufficiency 30-100 ng/mL Toxicity >100 ng/mL NOTE: A pediatric reference range has not been established by the skin care specialist of this kit. The [place] [employer] recommends a Vitamin D level of = or >20ng/mL in infants and children. Performed By: #### 2 276-4, CBCA, FEPR #### [facility] ([id number]) [address] [facility], [address] [place] [address] HCG ( test) Ql (U)o n 01-23-2024 Interpretation and review of laboratory results Abnormal [facility] Preg Test, Ur Positive Negative [facility] Urinalysis macro (dipstick) panel (U)on 01-23-2024 Bilirubin, UA Negative Negative - 4(70) +++ mg/dL [facility] Blood, UA Positive Negative - 50 Enrrique/mcL [facility] Clarity, UA Clear [facility] Color, UA Yellow [facility] Glucose, UA Negative Negative - 1999(110) ++++ mg/dL [facility] Interpretation and review of laboratory results Abnormal [facility] Ketones, UA Positive Negative - 160(16) ++++ mg/dL [facility] Leukocytes, UA Negative Negative - 500+++ Cam/mcL [facility] Nitrite, UA Negative Negative - Positive [facility] pH, UA 7 5 - 9 [facility] Protein, UA Trace Negative - 1999(20) ++++ mg/dL [facility] Spec Grav, UA 1.015 1 - 1.03 [facility] Urobilinogen, UA 1.0 0.2 - 12 mg/dL [facility] KAY FECAL OCCULT BLDon 01-02 Hemoglobin.gastrointe stinal Ql (Stl) Negative Normal NEG [facility] Comment on above: Performed By: #### 2 335-8 #### [facility] ([id number]) [address] [facility], [place] [address] CBC AND AUTO DIFFon 11-30- 24 ABSOLUTE BASOPHIL 0.0 X10E9/L Normal 0.0-0.2 [facility] Comment on above: Performed By: #### C CRUZ, FEPR, 6-4 #### [facility] ([id number]) [address], [address] [place] [address] ABSOLUTE NEUTROPHIL 1.9 X10E9/L Normal 1.5-6.6 [facility] Comment on above: Performed By: #### Elizabeth ARROYO, FEPR, 2275-4 #### [facility] ([id number]) [address], [facility] [address] [place] [address] Basophils/100 WBC (Bld) 0.5 % Normal [facility] Comment on above: Performed By: #### Elizabeth BCA, FEPR, 2275-4 #### [facility] ([id number]) [address], [facility] [address] [place] [address] Eosinophils (Bld) [#/Vol] 0.1 10*3/uL Normal 0.0-0.4 [facility] Comment on above: Performed By: #### Elizabeth ARROYO, FEPR, 2275-4 #### [facility] ([id number]) [address], [facility] [address] [place] [address] Eosinophils/100 WBC (Bld) 2.3 % Normal [facility] Comment on above: Performed By: #### Elizabeth BCA, FEPR, 2275-4 #### [facility] ([id number]) [address], [address] [place] [address] Erythrocyte distribution width (RBC) [Ratio] 13.3 % Normal 11.5-15.0 [facility] Comment on above: Performed By: #### Elizabeth BCA, FEPR, 2275-4 #### [facility] ([id number]) [address], [address] [place] [address] Hematocrit (Bld) [Volume fraction] 36.2 % Normal 35-47 [facility] Comment on above: Performed By: #### Elizabeth ARROYO, FEPR, 6-4 #### [facility] ([id number]) [address], [address] [place] [address] Hemoglobin (Bld) [Mass/Vol] 12.8 g/dL Normal 11.7-15.5 [facility] Comment on above: Performed By: #### Elizabeth ARROYO, FEPR, 2275-4 #### [facility] ([id number]) [address], [address] [place] [address] Lymphocytes (Bld) [#/Vol] 2.3 10*3/uL Normal 1.0-3.5 [facility] Comment on above: Performed By: #### Elizabeth ARROYO, FEPR, 2275-4 #### [facility] ([id number]) [address], [address] [place] [address] Lymphocytes/100 WBC (Bld) 47.4 % Normal [facility] Comment on above: Performed By: #### Elizabeth ARROYO, FEPR, 2275-4 #### [facility] ([id number]) [address], [address] [place] [address] MCH (RBC) [Entitic mass] 33.2 pg Normal 27-34 [facility] Comment on above: Performed By: #### Elizabeth BCA, FEPR, 2275-4 #### [facility] ([id number]) [address], [address] [place] [address] MCHC (RBC) [Mass/Vol] 35.5 g/dL Normal 32-36 [facility] Comment on above: Performed By: #### Elizabeth BCA, FEPR, 2275-4 #### [facility] ([id number]) [address] [place] [address] MCV (RBC) [Entitic vol] 94 fL Normal 80-100 [facility] Comment on above: Performed By: #### Elizabeth ARROYO, FEPR, 2275- #### [facility] ([id number]) [address], [address] [place] [address] Monocytes (Bld) [#/Vol] 0.4 10*3/uL Normal 0-0.9 [facility] Comment on above: Performed By: #### Elizabeth ARROYO, FEPR, 2275- #### [facility] ([id number]) [address], [address] [place] [address] Monocytes/100 WBC (Bld) 9.1 % Normal [facility] Comment on above: Performed By: #### Elizabeth ARROYO, FEPR, 2275- #### [facility] ([id number]) [address], [address] [place] [address] Neutrophils/100 WBC (Bld) 40.7 % Normal [facility] Comment on above: Performed By: #### Elizabeth ARROYO, FEPR, 2275-05 #### [facility] ([id number]) [address], [address] [place] [address] Platelet mean volume (Bld) [Entitic vol] 11.1 fL Normal 7-12 [facility] Comment on above: Performed By: #### Elizabeth ARROYO, FEPR, 2275-05 #### [facility] ([id number]) [address], [address] [place] [address] Platelets (Bld) [#/Vol] 187 10*3/uL Normal 150-450 [facility] Comment on above: Performed By: #### Elizabeth ARROYO, FEPR, 2275-05 #### [facility] ([id number]) [address], [address] [place] [address] RBC COUNT 3.87 X10E12/L Normal 3.80-5.20 [facility] Comment on above: Performed By: #### C BCA, FEPR, 6-4 #### [facility] ([id number]) [address] [address] [place] [address] WBC (Bld) [#/Vol] 4.8 10*3/uL Normal 4.0-11.0 [facility] Comment on above: Performed By: #### C BCA, FEPR, 6-4 #### [facility] ([id number]) [address], [facility] [address] [place] [address] FERRITINon 12-01-2023 Ferritin [Mass/Vol] 12 ng/mL Normal 11-307 [facility] Comment on above: Performed By: #### C BCA, FEPR, 6-4 #### [facility] ([id number]) [address], [facility] [address] [place] [address] IRON PROFILEon 12-01-2023 Iron [Mass/Vol] 74 ug/dL Normal 50-170 [facility] Comment on above: Performed By: #### C BCA, FEPR, 6-4 #### [facility] ([id number]) [address], [facility] [address] [place] [address] IRON BINDING 344 ug/dL Normal 250-425 [facility] Comment on above: Performed By: #### Elizabeth BCA, FEPR, 6-4 #### [facility] ([id number]) [address] [address] [place] [address] IRON SATURATION 21 % SATURATION Normal 15-50 [facility] Comment on above: Performed By: #### C BCA, FEPR, 6-4 #### [facility] ([id number]) [address], [address] [place] [address] CBC AND AUTO DIFFon 24-20 24 ABSOLUTE BASOPHIL 0.0 X10E9/L Normal 0.0-0.2 [facility] Comment on above: Performed By: #### 2 276-4, CBCA, FEPR #### [facility] ([id number]) [address] [place] [address] ABSOLUTE NEUTROPHIL 2.7 X10E9/L Normal 1.5-6.6 [facility] Comment on above: Performed By: #### 2 276-4, CBCA, FEPR #### [facility] ([id number]) [address] [place] [address] Basophils/100 WBC (Bld) 0.4 % Normal [facility] Comment on above: Performed By: #### 2 276-4, CBCA, FEPR #### [facility] ([id number]) [address] [place] [address] Eosinophils (Bld) [#/Vol] 0.1 10*3/uL Normal 0.0-0.4 [facility] Comment on above: Performed By: #### 2 276-4, CBCA, FEPR #### [facility] ([id number]) [address] [place] [address] Eosinophils/100 WBC (Bld) 2.0 % Normal [facility] Comment on above: Performed By: #### 2 276-4, CBCA, FEPR #### [facility] ([id number]) [address] [place] [address] Erythrocyte distribution width (RBC) [Ratio] 13.5 % Normal 11.5-15.0 [facility] Comment on above: Performed By: #### 2 276-4, CBCA, FEPR #### [facility] ([id number]) [address] [place] [address] Hematocrit (Bld) [Volume fraction] 35.2 % Normal 35-47 [facility] Comment on above: Performed By: #### 2 276-4, CBCA, FEPR #### [facility] ([id number]) [address] [address] [place] [address] Hemoglobin (Bld) [Mass/Vol] 12.2 g/dL Normal 11.7-15.5 [facility] Comment on above: Performed By: #### 2 276-4, CBCA, FEPR #### [facility] ([id number]) [address] [address] Lymphocytes (Bld) [#/Vol] 1.9 10*3/uL Normal 1.0-3.5 [facility] Comment on above: Performed By: #### 2 276-4, CBCA, FEPR #### [facility] ([id number]) [address] [address] Lymphocytes/100 WBC (Bld) 36.8 % Normal [facility] Comment on above: Performed By: #### 2 276-4, CBCA, FEPR #### [facility] ([id number]) [address] [address] MCH (RBC) [Entitic mass] 31.9 pg Normal 27-34 [facility] Comment on above: Performed By: #### 2 276-4, CBCA, FEPR #### [facility] ([id number]) [address] [address] MCHC (RBC) [Mass/Vol] 34.5 g/dL Normal 32-36 [facility] Comment on above: Performed By: #### 2 276-4, CBCA, FEPR #### [facility] ([id number]) [address] [address] MCV (RBC) [Entitic vol] 93 fL Normal 80-100 [facility] Comment on above: Performed By: #### 2 276-4, CBCA, FEPR #### [facility] ([id number]) [address], [address] [place] [address] Monocytes (Bld) [#/Vol] 0.4 10*3/uL Normal 0-0.9 [facility] Comment on above: Performed By: #### 2 276-4, CBCA, FEPR #### [facility] ([id number]) [address], [address] [place] [address] Monocytes/100 WBC (Bld) 8.3 % Normal [facility] Comment on above: Performed By: #### 2 276-4, CBCA, FEPR #### [facility] ([id number]) [address], [facility] [address] [place] [address] Neutrophils/100 WBC (Bld) 52.5 % Normal [facility] Comment on above: Performed By: #### 2 276-4, CBCA, FEPR #### [facility] ([id number]) [address] [place] [address] Platelet mean volume (Bld) [Entitic vol] 10.7 fL Normal 7-12 [facility] Comment on above: Performed By: #### 2 276-4, CBCA, FEPR #### [facility] ([id number]) [address] [place] [address] Platelets (Bld) [#/Vol] 198 10*3/uL Normal 150-450 [facility] Comment on above: Performed By: #### 2 276-4, CBCA, FEPR #### [facility] ([id number]) [address], [address] [place] [address] RBC COUNT 3.81 X10E12/L Normal 3.80-5.20 [facility] Comment on above: Performed By: #### 2 276-4, CBCA, FEPR #### [facility] ([id number]) [address] [address] [place] [address] WBC (Bld) [#/Vol] 5.2 10*3/uL Normal 4.0-11.0 [facility] Comment on above: Performed By: #### 2 276-4, CBCA, FEPR #### [facility] ([id number]) [address], [facility] [address] [place] [address] FERRITINon 08-04-2023 Ferritin [Mass/Vol] 27 ng/mL Normal 11-307 [facility] Comment on above: Performed By: #### 2 276-4, CBCA, FEPR #### [facility] ([id number]) [address], [address] [place] [address] IRON PROFILEon 08-04-2023 Iron [Mass/Vol] 46 ug/dL Low 50-170 [facility] Comment on above: Performed By: #### 2 276-4, CBCA, FEPR #### [facility] ([id number]) [address], [address] [place] [address] IRON BINDING 273 ug/dL Normal 250-425 [facility] Comment on above: Performed By: #### 2 276-4, CBCA, FEPR #### [facility] ([id number]) [address], [address] [address] IRON SATURATION 17 % SATURATION Normal 15-50 [facility] Comment on above: Performed By: #### 2 276-4, CBCA, FEPR #### [facility] ([id number]) [address], [address] [place] [address] M. tuberculosis stim IFN-g p carrillo (Bld)on 08-04-2023 Mitogen minus Nil Result 9.92 IU/mL Normal [facility] Comment on above: Performed By: #### 7 1775-1 #### [facility] ([id number]) [address] [place] [address], Nil Result 0.08 IU/mL Normal [facility] Comment on above: Result Comment: NOTE Test Performed by: [facility] [address] [place] [address] Sole Leather Cutting Machine Operator: Celi Fernandez Ph.D.; CLIA# [id number] Performed By: #### 7 1775-1 #### [facility] ([id number]) [address] [place] [address], QuantiFERON-Tb Gold Plus Result Negative Normal Negative [facility] Comment on above: Result Comment: NOTE [...] IU/mL. Performed By: #### 7 1775-1 #### [facility] ([id number]) [address] [place] [address], TB1 Ag minus Nil Result 0.09 IU/mL Normal [facility] Comment on above: Performed By: #### 7 1775-1 #### [facility] ([id number]) [address] [place] [address], TB2 Ag minus Nil Result 0.01 IU/mL [facility] Comment on above: Performed By: #### 7 1775-1 #### [facility] ([id number]) [address] [place] [address], PAP ACOG PANEL 2: 30 to 65on 05-07-2022 . . Normal [facility] Comment on above: Result Comment: Perf ormed at: WB Performed By: #### 4 580690 #### [facility] [address] [place] [address] Dr. Bisi Glass Age Gdln ACOG Testing 30-65 Normal [facility] Comment on above: Performed By: #### 4 774814 #### [facility] [address] [place] [address] Dr. Bisi Glass DIAGNOSIS: Comment Normal [facility] Comment on above: Result Comment: NEGA TIVE FOR INTRAEPITHELIAL LESION OR MALIGNANCY. Performed at: WB Performed By: #### 4 048892 #### [facility] [address] [place] [address] Dr. Bisi Glass HPV Aptima Negative Normal Negative [facility] Comment on above: Result Comment: This nucleic acid amplification test detects fourteen high-risk HPV types (16,18,31,33,35,39,45,51,52,56,58,59,66,68) without differentiation. Performed at: =G Performed By: #### 4 177016 #### [facility] [address] [place] [address] Dr. Bisi Glass HPV Genotype Reflex Comment Normal [facility] Comment on above: Result Comment: Crit eria not met, HPV Genotype not performed. Performed at: WB Performed By: #### 4 596472 #### [facility] [address] [place] [address] Dr. Bisi Glass Methodology: Comment [facility] Comment on above: Result Comment: This liquid based ThinPrep(R) pap test was screened with the use of an image guided system. Performed at: WB Performed By: #### 4 311072 #### [facility] [address] [place] [address] Dr. Bisi Glass Note: Comment Normal [facility] Comment on above: Result Comment: The Pap smear is a screening test designed to aid in the detection of premalignant and malignant conditions of the uterine cervix. It is not a diagnostic procedure and should not be used as the sole means of detecting cervical cancer. Both false-positive and false-negative reports do occur. . Performed at: WB Performed By: #### 4 390677 #### [facility] [address] [place] [address] Dr. Bisi Glass Performed by: Comment Normal [facility] Comment on above: Result Comment: Ngozi Hamlin, Bond Broker (ASCP) Performed at: WB Performed By: #### 4 113429 #### [facility] [address] [address] [address] Bisi Glass Specimen adequacy: Comment Normal [facility] Comment on above: Result Comment: Sati sfactory for evaluation. Endocervical and/or squamous metaplastic cells (endocervical component) are present. Performed at: WB Performed By: #### 4 518366 #### [facility] [address] [place], [place] [address] Dr. Bisi Glass CNCOon 02-11-2017 CNCO Letter [employer] [address] [address]Ucljg: [phone]: [address] [place], [place] [address]Vbkoq: [phone]: [phone] [place], [place] [address]Wqgcb: [phone]: Toll Free: [phone] [email or web address] Raza Roldan M.D., Jhon Mora M.D.Barry Camarena M.D.Samara Hernandez D.O..Bettie Henry M.D. FACROSaju A. Rajan, M.D.February 11, [address] [address]Riue Ms. Storey,You missed your scheduled appointment on Saturday February 11, 2017. Pleasecall our office to reschedule. If you need to cancel any futureappointments, please call to give us 24 hour notice so that we can offer yourappointment to another patient.Sincerely,Brando Carvajal. Normal [facility] 12-03-2016 [facility] Infusion [facility] ([facility]) RALEIGH JUAN LUIS ([id number]) 1990 FDate Time Provider Vppouiicty18/24/17 1:00 PM CHAIR [address] [facility] During your visit today, we recorded the following information about you: Temperature Pulse Respiration Blood pressure 98.9 degrees 76/minute 18/minute 97/64Referring Provider: SAMARA HERNANDEZ [[id number]]Allergies As of Date: 12/03/2016(No Known Allergies)Date Reviewed: 12/03/2016Reviewed by: Kristi (Rn) JAD Partida - Fully AssessedPrimary Visit Diagnosis:Anemia, unspecified type [D64.9]Order(s):TREATMEN T PARAMETER-NOT NEEDED [1150699] Order #: [id number]: 1 HEMONC NURSING COMMUNICATION [4911261] Order #: [id number]: 1 STANDING HEMONC NURSING COMMUNICATION [[id number]] Order #: [id number]: 1 STANDING HEMONC NURSING COMMUNICATION [[id number]] Order #: [id number]: 1 STANDING HEMONC NURSING COMMUNICATION [[id number]] Order #: [id number]: 1 STANDING HEMONC NURSING COMMUNICATION [[id number]] Order #: [id number]: 1 STANDING HEMONC NURSING COMMUNICATION [2212025] Order #: [id number]: 1 STANDING [] iron sucrose 200 mg [...] (1 ML) INJECTION* 12/03/2016 Route: INTRAMUSCULAEncounter Number: [id number] Status:Closed by KRISTI PARTIDA on 12/03/[address] [facility] CNOVSPon 11-19-2016 CNOVSP Visit (SP) Office (HEMACL) JUAN LUIS STOREY ([id number]) 1990 [facility] Time Provider Yuovgjilbw83/10/17 11:00 AM SAMARA HERNANDEZ HEMBRENDA During your visit today, we recorded the following information about you: Temperature Pulse Respiration Blood pressure 97.8 degrees 78/minute 18/minute 96/61 Weight Height 59.6 kg 1.632 mApril Ab 11/19/2016 11:15 AM SignedPatient states feeling more fatigue.Samara Hernandez DO 11/23/2016 9:43 AM SignedPATIENT NAME: Juan Luis StoreyMRN: [id number] PHYSICIAN: IFTIKHAR RAZO[address] [place] [address] CARE PHYSICIAN: Iftikhar RazoOTHER PHYSICIANS:CHIEF COMPLAINT: Anemia, [...] PRESENT ILLNESS: This is a 26year old -Qatari femaleCBC from 05/22/16 reveals white blood cell [...] her second kid in dec 2014.Works a [employer] service.June 04, 2016Eats a bag of ice [...] I answered all questions satisfactorily..Mariano Hernandez D.O.Medical OncologistWebb, [place]Referring Provider: SAMARA HERNANDEZ [[id number]]Allergies As of Date: 11/19/2016(No Known Allergies)Date Reviewed: [...] Status:Closed by SAMARA HERNANDEZ DO on 11/23/[address] [facility] PROGRESSon 11-19-2016 PROGRESS HNO ID: [id number]: Samara HernandezService: (none)Author Type: PhysicianType: Progress NotesFiled: 11/23/2016 9:43 AMNote Text:PATIENT NAME: Juan Luis Richey RaleighMRN: [id number] PHYSICIAN: IFTIKHAR RAZO[address] [place] [id number] CARE PHYSICIAN: Iftikhar RazoOTHER PHYSICIANS:CHIEF COMPLAINT: Anemia, [...] PRESENT ILLNESS: This is a 26year old -Qatari femaleCBC from 05/22/16 reveals white blood cell [...] her second kid in dec 2014.Works a [employer] service.June 04, 2016Eats a bag of [...] I answered all questions satisfactorily..Mariano Hernandez D.O.Medical OncologistWe[place], [place] Normal [facility] Remote CBCDIF (for [facility] use o nly)on 11-19-2016 Abs Baso 0.02 k/uL Normal <0.11 [facility] Abs Freestone 0.40 k/uL Normal 0.00-0.86 [facility] Abs Neut 3.13 k/uL Normal 1.45-7.50 [facility] Basophils/100 WBC Auto (Bld) 0.4 % Normal [facility] Eosinophils 0.05 10*3/uL Normal <0.46 [facility] Eosinophils/100 leukocytes 0.9 % Normal [facility] Erythrocyte distribution width Auto Ratio (RBC) 13.5 % Normal 11.5-15.0 [facility] Erythrocytes (RBC) 3.87 10*6/uL Low 3.90-5.20 [facility] Hematocrit (HCT) 33.0 % Low 36.0-46.0 [facility] Hemoglobin mass conc (Bld) 10.5 g/dL Low 11.5-15.5 [facility] Lymphocytes 1.70 10*3/uL Normal 1.00-4.00 [facility] Lymphocytes/100 leukocytes 32.1 % Normal [facility] MCH 27.1 pG Normal 26.0-34.0 [facility] MCHC mass conc (RBC) 31.8 g/dL Normal 30.5-36.0 [facility] MCV 85.3 fL Normal 80.0-100.0 [facility] Monocytes/100 leukocytes 7.5 % Normal [facility] Neutrophils/100 WBC Auto (Bld) 59.1 % Normal [facility] Platelet mean volume (PMV) 11.0 fL Normal 9.0-12.7 [facility] Platelets 288 10*3/uL Normal 150-400 [facility] WBC (Leukocytes) 5.30 10*3/uL Normal 3.70-11.00 [facility] Remote iSTAT BMP (for [facility] us e only)on 11-19-2016 Anion gap 11 mmol/L Normal 0-15 [facility] BUN (urea nitrogen) 12 mg/dL Normal 8-25 [facility] Chloride 105 mmol/L Normal 98-110 [facility] CO2 24 mmol/L Normal 23-32 [facility] Creatinine 0.70 mg/dL Normal 0.70-1.40 [facility] eGFR (non-black) mL/min/{1.73_m2} Normal Cl [facility] Comment on above: Result Comment: [...] conc 79 mg/dL Normal 65-100 [facility] Ionized Calcium, WB 1.14 mmol/L Normal 1.08-1.30 [facility] Comment on above: Result Comment: Plea se note: This value represents ionized calcium not total calcium. Potassium molar conc 4.0 mmol/L Normal 3.5-5.0 [facility] Sodium 140 mmol/L Normal 132-148 [facility] Ferritinon 10-29-2016 Ferritin 19.8 ng/mL Normal 14.7-205.1 [facility] Comment on above: Performed By: #### I CHERYL, FERR ####[address] [phone] Iron and TIBCon 10-29-2016 Iron 21 ug/dL Low 41-186 [facility] Comment on above: Performed By: #### I CHERYL, FERR ####[address] [phone] TIBC 331 ug/dL Normal 232-386 [facility] Comment on above: Performed By: #### Tatum LUNA, FERR ####[address] [phone] Transferrin Saturatn 6 % Low 15-57 [facility] Comment on above: Performed By: #### Tatum LUNA, FERR ####[address] [phone] Remote CBCDIF (for [facility] use o nly)on 10-29-2016 Abs Baso 0.02 k/uL Normal 0.00-0.10 [facility] Abs Freestone 0.42 k/uL Normal 0.00-0.86 [facility] Abs Neut 3.06 k/uL Normal 1.45-7.50 [facility] Basophils/100 WBC Auto (Bld) 0.3 % Normal [facility] Eosinophils 0.11 10*3/uL Normal 0.00-0.45 [facility] Eosinophils/100 leukocytes 1.8 % Normal [facility] Erythrocyte distribution width Auto Ratio (RBC) 12.9 % Normal 11.5-15.0 [facility] Erythrocytes (RBC) 3.90 10*6/uL Normal 3.90-5.20 [facility] Hematocrit (HCT) 34.0 % Low 36.0-46.0 [facility] Hemoglobin mass conc (Bld) 10.8 g/dL Low 11.5-15.5 [facility] Lymphocytes 2.37 10*3/uL Normal 1.00-4.00 [facility] Lymphocytes/100 leukocytes 39.6 % Normal [facility] MCH 27.7 pG Normal 26.0-34.0 [facility] MCHC mass conc (RBC) 31.8 g/dL Normal 30.5-36.0 [facility] MCV 87.2 fL Normal 80.0-100.0 [facility] Monocytes/100 leukocytes 7.0 % Normal [facility] Neutrophils/100 WBC Auto (Bld) 51.3 % Normal [facility] Platelet mean volume (PMV) 10.8 fL Normal 9.0-12.7 [facility] Platelets 268 10*3/uL Normal 150-400 [facility] WBC (Leukocytes) 5.98 10*3/uL Normal 3.70-11.00 [facility] Remote iSTAT BMP (for [facility] us e only)on 10-29-2016 Anion gap 11 mmol/L Normal 0-15 [facility] BUN (urea nitrogen) 9 mg/dL Normal 8-25 [facility] Chloride 104 mmol/L Normal 98-110 [facility] CO2 26 mmol/L Normal 23-32 [facility] Creatinine 0.70 mg/dL Normal 0.70-1.40 [facility] eGFR (non-black) mL/min/{1.73_m2} Normal Cl [facility] Comment on above: Result Comment: [...] conc 83 mg/dL Normal 65-100 [facility] Ionized Calcium, WB 1.16 mmol/L Normal 1.08-1.30 [facility] Comment on above: Result Comment: Plea se note: This value represents ionized calcium not total calcium. Potassium molar conc 3.8 mmol/L Normal 3.5-5.0 [facility] Sodium 141 mmol/L Normal 132-148 [facility] Ferritinon 10-01-2016 Ferritin 9.1 ng/mL Low 14.7-205.1 [facility] Comment on above: Performed By: #### I LUZ LUNA ####[facility] [id number] [place], [place] [phone] Iron and TIBCon 10-01-2016 Iron 34 ug/dL Low 41-186 [facility] Comment on above: Performed By: #### I LUZ LUNA ####[facility] [id number] [place], [place] [phone] TIBC 316 ug/dL Normal 232-386 [facility] Comment on above: Performed By: #### I LUZ LUNA ####[facility] [id number] [place], [place] [phone] Transferrin Saturatn 11 % Low 15-57 [facility] Comment on above: Performed By: #### I CHERYL FERR ####[facility] [address] [place] [address] [phone] Remote CBCDIF (for [facility] use o nly)on 10-01-2016 Abs Baso 0.02 k/uL Normal 0.00-0.10 [facility] Abs Freestone 0.53 k/uL Normal 0.00-0.86 [facility] Abs Neut 2.48 k/uL Normal 1.45-7.50 [facility] Basophils/100 WBC Auto (Bld) 0.4 % Normal [facility] Eosinophils 0.09 10*3/uL Normal 0.00-0.45 [facility] Eosinophils/100 leukocytes 1.6 % Normal [facility] Erythrocyte distribution width Auto Ratio (RBC) 13.7 % Normal 11.5-15.0 [facility] Erythrocytes (RBC) 3.85 10*6/uL Low 3.90-5.20 [facility] Hematocrit (HCT) 33.5 % Low 36.0-46.0 [facility] Hemoglobin mass conc (Bld) 10.7 g/dL Low 11.5-15.5 [facility] Lymphocytes 2.36 10*3/uL Normal 1.00-4.00 [facility] Lymphocytes/100 leukocytes 43.1 % Normal [facility] MCH 27.8 pG Normal 26.0-34.0 [facility] MCHC mass conc (RBC) 31.9 g/dL Normal 30.5-36.0 [facility] MCV 87.0 fL Normal 80.0-100.0 [facility] Monocytes/100 leukocytes 9.7 % Normal [facility] Neutrophils/100 WBC Auto (Bld) 45.2 % Normal [facility] Platelet mean volume (PMV) 10.8 fL Normal 9.0-12.7 [facility] Platelets 282 10*3/uL Normal 150-400 [facility] WBC (Leukocytes) 5.48 10*3/uL Normal 3.70-11.00 [facility] Remote iSTAT BMP (for [facility] us e only)on 10-01-2016 Anion gap 13 mmol/L Normal 0-15 [facility] BUN (urea nitrogen) 14 mg/dL Normal 8-25 [facility] Chloride 102 mmol/L Normal 98-110 [facility] CO2 24 mmol/L Normal 23-32 [facility] Creatinine 0.70 mg/dL Normal 0.70-1.40 [facility] eGFR (non-black) mL/min/{1.73_m2} Normal Cl [facility] Comment on above: Result Comment: [...] conc 93 mg/dL Normal 65-100 [facility] Ionized Calcium, WB 1.14 mmol/L Normal 1.08-1.30 [facility] Comment on above: Result Comment: Plemagen se note: This value represents ionized calcium not total calcium. Potassium molar conc 3.7 mmol/L Normal 3.5-5.0 [facility] Sodium 139 mmol/L Normal 132-148 [facility] Remote CBCDIF (for [facility] use o nly)on 08-29-2016 Abs Baso 0.02 k/uL Normal 0.00-0.10 [facility] Abs Freestone 0.52 k/uL Normal 0.00-0.86 [facility] Abs Neut 3.37 k/uL Normal 1.45-7.50 [facility] Basophils/100 WBC Auto (Bld) 0.3 % Normal [facility] Eosinophils 0.10 10*3/uL Normal 0.00-0.45 [facility] Eosinophils/100 leukocytes 1.7 % Normal [facility] Erythrocyte distribution width Auto Ratio (RBC) 18.7 % High 11.5-15.0 [facility] Erythrocytes (RBC) 3.97 10*6/uL Normal 3.90-5.20 [facility] Hematocrit (HCT) 33.0 % Low 36.0-46.0 [facility] Hemoglobin mass conc (Bld) 10.5 g/dL Low 11.5-15.5 [facility] Lymphocytes 1.92 10*3/uL Normal 1.00-4.00 [facility] Lymphocytes/100 leukocytes 32.4 % Normal [facility] MCH 26.4 pG Normal 26.0-34.0 [facility] MCHC mass conc (RBC) 31.8 g/dL Normal 30.5-36.0 [facility] MCV 83.1 fL Normal 80.0-100.0 [facility] Monocytes/100 leukocytes 8.8 % Normal [facility] Neutrophils/100 WBC Auto (Bld) 56.8 % Normal [facility] Platelet mean volume (PMV) 10.0 fL Normal 9.0-12.7 [facility] Platelets 263 10*3/uL Normal 150-400 [facility] WBC (Leukocytes) 5.93 10*3/uL Normal 3.70-11.00 [facility] Remote iSTAT BMP (for [facility] us e only)on 08-29-2016 Anion gap 12 mmol/L Normal 0-15 [facility] BUN (urea nitrogen) 12 mg/dL Normal 8-25 [facility] Chloride 104 mmol/L Normal 98-110 [facility] CO2 24 mmol/L Normal 23-32 [facility] Creatinine 0.80 mg/dL Normal 0.70-1.40 [facility] eGFR (non-black) mL/min/{1.73_m2} Normal Cl [facility] Comment on above: Result Comment: [...] conc 91 mg/dL Normal 65-100 [facility] Ionized Calcium, WB 1.14 mmol/L Normal 1.08-1.30 [facility] Comment on above: Result Comment: Plea se note: This value represents ionized calcium not total calcium. Potassium molar conc 3.7 mmol/L Normal 3.5-5.0 [facility] Sodium 140 mmol/L Normal 132-148 [facility] Vital Signs Date Time Vital Sign Value Performing Clinician Facility 05-26-2024 14:28-0400 Body mass index (BMI) [Ratio] 31.62 kg/m2 Parish Courtney DO Work Phone: [facility] 05-26-2024 14:28-0400 Body weight 86.18 kg Parish Courtney DO Work Phone: [facility] 05-26-2024 14:28-0400 Diastolic blood pressure 82 mm[Hg] Parish Courtney DO Work Phone: [facility] 05-26-2024 14:28-0400 Systolic blood pressure 130 mm[Hg] Parish Courtney DO Work Phone: [facility] 05-24-2024 12:55-0400 Body temperature 99.3 [degF] [address] [facility] [facility] 05-24-2024 12:55-0400 Diastolic blood pressure 90 mm[Hg] [address] 05-24-2024 12:55-0400 Heart rate 105 /min [address] 05-24-2024 12:55-0400 Respiratory rate 18 /min [address] [facility] 05-24-2024 12:55-0400 Systolic blood pressure 128 mm[Hg] [address] 05-24-2024 10:35-0400 Body mass index (BMI) [Ratio] 31.65 kg/m2 [address] 05-24-2024 10:35-0400 Body weight 86.[address] 05-12-2024 14:49-0400 Body mass index (BMI) [Ratio] 31.45 kg/m2 Yaquelin BELCHER Work Phone: [facility] 05-12-2024 14:49-0400 Body weight 85.73 kg Yaquelin BELCHER Work Phone: [facility] 05-12-2024 14:49-0400 Diastolic blood pressure 78 mm[Hg] Yaquelin BELCHER Work Phone: [facility] 05-12-2024 14:49-0400 Systolic blood pressure 130 mm[Hg] Yaquelin BELCHER Work Phone: [facility] 05-06-2024 09:41-0400 Body height 165.1 cm Raulito Jimenez DO Work Phone: [facility] [employer] 05-06-2024 09:41-0400 Body mass index (BMI) [Ratio] 31.62 kg/m2 Raulito Jimenez DO Work Phone: [facility] [employer] 05-06-2024 09:41-0400 Body temperature 98.2 [degF] Raulito Jimenez DO Work Phone: [facility] 05-06-2024 09:41-0400 Body weight 86.18 kg Raulito Jimenez DO Work Phone: [facility] [employer] 05-06-2024 09:41-0400 Diastolic blood pressure 78 mm[Hg] Raulito Jimenez DO Work Phone: [facility] [employer] 05-06-2024 09:41-0400 Heart rate 110 /min Raulito Jimenez DO Work Phone: [facility] [employer] 05-06-2024 09:41-0400 SaO2% (BldA) [Mass fraction] 98 % Raulito Jimenez DO Work Phone: [facility] 05-06-2024 09:41-0400 Systolic blood pressure 138 mm[Hg] Raulito Jimenez DO Work Phone: [facility] [employer] 04-26-2024 10:26-0400 Body mass index (BMI) [Ratio] 30.65 kg/m2 Parish Courtney DO Work Phone: [facility] 04-26-2024 10:26-0400 Body weight 83.55 kg Parish Courtney DO Work Phone: [facility] 04-26-2024 10:26-0400 Diastolic blood pressure 76 mm[Hg] Parish Courtney DO Work Phone: [facility] 04-26-2024 10:26-0400 Systolic blood pressure 122 mm[Hg] Parish Goodmano DO Work Phone: [facility] 04-19-2024 13:13-0400 Body temperature 99.19 [degF] Wl 1 [facility] 04-19-2024 13:13-0400 Diastolic blood pressure 79 mm[Hg] Wlc 1 [facility] 04-19-2024 13:13-0400 Heart rate 96 /min Wl 1 [facility] 04-19-2024 13:13-0400 Respiratory rate 20 /min Wl 1 [facility] 04-19-2024 13:13-0400 Systolic blood pressure 116 mm[Hg] Wl 1 [facility] 04-19-2024 10:41-0400 Body mass index (BMI) [Ratio] 30.63 kg/m2 [facility] 1 [facility] 04-19-2024 10:41-0400 Body weight 83.5 kg Wl 1 [facility] 04-19-2024 09:53-0400 Body height 165.1 cm Sharda Montiel MD Work Phone: [facility] 04-19-2024 09:53-0400 Body mass index (BMI) [Ratio] 30.62 kg/m2 Sharda Montiel MD Work Phone: [facility] 04-19-2024 09:53-0400 Body weight 83.46 kg Sharda Montiel MD Work Phone: [facility] 04-19-2024 09:53-0400 Diastolic blood pressure 86 mm[Hg] Sharda Montiel MD Work Phone: [facility] 04-19-2024 09:53-0400 Systolic blood pressure 140 mm[Hg] Sharda Montiel MD Work Phone: [facility] 04-14-2024 14:33-0500 Body mass index (BMI) [Ratio] 30.42 kg/m2 Parish Goodmano DO Work Phone: [facility] 04-14-2024 14:33-0500 Body weight 82.92 kg Parish Courtney DO Work Phone: [facility] 04-14-2024 14:33-0500 Diastolic blood pressure 72 mm[Hg] Parish Courtney DO Work Phone: [facility] 04-14-2024 14:33-0500 Systolic blood pressure 122 mm[Hg] Parish Courtney DO Work Phone: [facility] 03-17-2024 10:51-0500 Body mass index (BMI) [Ratio] 29.31 kg/m2 Yaquelin Horne PA Work Phone: [facility] 03-17-2024 10:51-0500 Body weight 79.89 kg Yaquelin Horne PA Work Phone: [facility] 03-17-2024 10:51-0500 Diastolic blood pressure 70 mm[Hg] Yaquelin Horne PA Work Phone: [facility] 03-17-2024 10:51-0500 Systolic blood pressure 116 mm[Hg] Yaquelin Horne PA Work Phone: [facility] 03-08-2024 12:30-0500 Body temperature 99.81 [degF] Wlc [address] [facility] [facility] 03-08-2024 12:30-0500 Diastolic blood pressure 69 mm[Hg] Wlc 1 [facility] 03-08-2024 12:30-0500 Heart rate 103 /min Wlc 1 [facility] 03-08-2024 12:30-0500 Respiratory rate 18 /min Wlc [address] [facility] [facility] 03-08-2024 12:30-0500 Systolic blood pressure 109 mm[Hg] Wlc 1 [facility] 03-08-2024 10:10-0500 Body mass index (BMI) [Ratio] 29.62 kg/m2 Wl 1 [facility] 03-08-2024 10:10-0500 Body weight 80.74 kg Wl 1 [facility] 02-18-2024 11:43-0500 Body mass index (BMI) [Ratio] 29.29 kg/m2 Parish Courtney DO Work Phone: [facility] 02-18-2024 11:43-0500 Body weight 79.83 kg Parish Courtney DO Work Phone: [facility] 02-18-2024 11:43-0500 Diastolic blood pressure 72 mm[Hg] Parish Courtney DO Work Phone: [facility] 02-18-2024 11:43-0500 Systolic blood pressure 122 mm[Hg] Parish Courtney DO Work Phone: [facility] 12-12-2023 11:50-0400 Body temperature 98.91 [degF] [facility] 2 [facility] 12-12-2023 11:50-0400 Diastolic blood pressure 66 mm[Hg] [facility] 2 [facility] 12-12-2023 11:50-0400 Heart rate 92 /min [facility] 2 [facility] 12-12-2023 11:50-0400 Respiratory rate 18 /min [facility] 2 [facility] 12-12-2023 11:50-0400 Systolic blood pressure 100 mm[Hg] [facility] 2 [facility] 12-12-2023 10:31-0400 Body mass index (BMI) [Ratio] 27.96 kg/m2 [facility] 2 [facility] 12-12-2023 10:31-0400 Body weight 76.2 kg [facility] 2 [facility] 12-01-2023 14:25-0400 Body height 165.1 cm Dominique Moya APRN-EMPLOYMENT SUPERVISOR Work Phone: [facility] 12-01-2023 14:25-0400 Body mass index (BMI) [Ratio] 27.89 kg/m2 Dominique Griffin HERNANDEZN-EMPLOYMENT SUPERVISOR Work Phone: [facility] 12-01-2023 14:25-0400 Body temperature 98.8 [degF] Dominique Griffin HERNANDEZN-EMPLOYMENT SUPERVISOR Work Phone: [facility] 12-01-2023 14:25-0400 Body weight 76.02 kg Dominique Griffin DISPATCH LEAD-EMPLOYMENT SUPERVISOR Work Phone: [facility] 12-01-2023 14:25-0400 Diastolic blood pressure 76 mm[Hg] Dominique Griffin DISPATCH LEAD-EMPLOYMENT SUPERVISOR Work Phone: [facility] 12-01-2023 14:25-0400 Heart rate 71 /min Dominique Griffin DISPATCH LEAD-EMPLOYMENT SUPERVISOR Work Phone: [facility] 12-01-2023 14:25-0400 Respiratory rate 16 /min Dominique Griffin DISPATCH LEAD-EMPLOYMENT SUPERVISOR Work Phone: [facility] 12-01-2023 14:25-0400 SaO2% (BldA) [Mass fraction] 99 % Dominique Griffin DISPATCH LEAD-EMPLOYMENT SUPERVISOR Work Phone: [facility] 12-01-2023 14:25-0400 Systolic blood pressure 111 mm[Hg] Dominique Griffin DISPATCH LEAD-EMPLOYMENT SUPERVISOR Work Phone: [facility] 10-31-2023 11:13-0400 Body temperature 98.6 [degF] [facility] 2 [facility] 10-31-2023 11:13-0400 Diastolic blood pressure 72 mm[Hg] [facility] 2 [facility] 10-31-2023 11:13-0400 Heart rate 85 /min [facility] 2 [facility] 10-31-2023 11:13-0400 Respiratory rate 18 /min [facility] 2 [facility] 10-31-2023 11:13-0400 Systolic blood pressure 112 mm[Hg] [facility] 2 [facility] 10-31-2023 09:51-0400 Body mass index (BMI) [Ratio] 27.81 kg/m2 [facility] 2 [facility] 10-31-2023 09:51-0400 Body weight 75.8 kg [facility] 2 [facility] 10-31-2023 08:50-0400 Body height 165.1 cm Sharda Montiel MD Work Phone: [facility] 10-31-2023 08:50-0400 Body mass index (BMI) [Ratio] 27.79 kg/m2 Sharda Montiel MD Work Phone: [facility] 10-31-2023 08:50-0400 Body weight 75.75 kg Sharda Montiel MD Work Phone: [facility] 10-31-2023 08:50-0400 Diastolic blood pressure 60 mm[Hg] Sharda Montiel MD Work Phone: [facility] 10-31-2023 08:50-0400 Systolic blood pressure 100 mm[Hg] Sharda Montiel MD Work Phone: [facility] 09-17-2023 09:46-0400 Body mass index (BMI) [Ratio] 27.06 kg/m2 Hilary Aviles DISPATCH LEAD-EMPLOYMENT SUPERVISOR Work Phone: [facility] 09-17-2023 09:46-0400 Body temperature 98.2 [degF] Hilary Traci DISPATCH LEAD-EMPLOYMENT SUPERVISOR Work Phone: [facility] 09-17-2023 09:46-0400 Body weight 73.75 kg Hilary Aviles DISPATCH LEAD-EMPLOYMENT SUPERVISOR Work Phone: [facility] 09-17-2023 09:46-0400 Diastolic blood pressure 60 mm[Hg] Hilary Aviles DISPATCH LEAD-EMPLOYMENT SUPERVISOR Work Phone: [facility] 09-17-2023 09:46-0400 Heart rate 75 /min Hilary Aviles DISPATCH LEAD-EMPLOYMENT SUPERVISOR Work Phone: [facility] 09-17-2023 09:46-0400 SaO2% (BldA) [Mass fraction] 97 % Hilary Aviles DISPATCH LEAD-EMPLOYMENT SUPERVISOR Work Phone: [facility] 09-17-2023 09:46-0400 Systolic blood pressure 98 mm[Hg] Hilary Fontaineler DISPATCH LEAD-EMPLOYMENT SUPERVISOR Work Phone: [facility] 09-15-2023 12:10-0400 Body temperature 98.71 [degF] [facility] 3 [facility] 09-15-2023 12:10-0400 Diastolic blood pressure 70 mm[Hg] [facility] 3 [facility] 09-15-2023 12:10-0400 Heart rate 75 /min [facility] 3 [facility] 09-15-2023 12:10-0400 Respiratory rate 20 /min [facility] 3 [facility] 09-15-2023 12:10-0400 Systolic blood pressure 117 mm[Hg] [facility] 3 [facility] 09-15-2023 10:43-0400 Body mass index (BMI) [Ratio] 26.89 kg/m2 [facility] 3 [facility] 09-15-2023 10:43-0400 Body weight 73.3 kg [facility] 3 [facility] 08-20-2023 14:15-0400 Body height 165.1 cm Hilary Traci DISPATCH LEAD-EMPLOYMENT SUPERVISOR Work Phone: [facility] 08-20-2023 14:15-0400 Body mass index (BMI) [Ratio] 26.36 kg/m2 Hilary Correauessler DISPATCH LEAD-EMPLOYMENT SUPERVISOR Work Phone: [facility] 08-20-2023 14:15-0400 Body temperature 98.6 [degF] Hilary Traci DISPATCH LEAD-EMPLOYMENT SUPERVISOR Work Phone: [facility] 08-20-2023 14:15-0400 Body weight 71.85 kg Hilary Traci DISPATCH LEAD-EMPLOYMENT SUPERVISOR Work Phone: [facility] 08-20-2023 14:15-0400 Diastolic blood pressure 72 mm[Hg] Hilary Traci DISPATCH LEAD-EMPLOYMENT SUPERVISOR Work Phone: [facility] 08-20-2023 14:15-0400 Heart rate 87 /min Hilary Traci DISPATCH LEAD-EMPLOYMENT SUPERVISOR Work Phone: [facility] 08-20-2023 14:15-0400 SaO2% (BldA) [Mass fraction] 97 % Hilary Aviles DISPATCH LEAD-EMPLOYMENT SUPERVISOR Work Phone: [facility] 08-20-2023 14:15-0400 Systolic blood pressure 116 mm[Hg] Hilary Aviles DISPATCH LEAD-EMPLOYMENT SUPERVISOR Work Phone: [facility] 08-04-2023 14:48-0400 Body temperature 98.2 [degF] [facility] 2 [facility] 08-04-2023 14:48-0400 Diastolic blood pressure 77 mm[Hg] [facility] 2 [facility] 08-04-2023 14:48-0400 Heart rate 76 /min [facility] 2 [facility] 08-04-2023 14:48-0400 Respiratory rate 20 /min [facility] 2 [facility] 08-04-2023 14:48-0400 Systolic blood pressure 118 mm[Hg] [facility] 2 [facility] 08-04-2023 13:22-0400 Body mass index (BMI) [Ratio] 27.19 kg/m2 [facility] 2 [facility] 08-04-2023 13:22-0400 Body weight 74.12 kg [facility] 2 [facility] 04-21-2023 13:05-0400 Body temperature 97.81 [degF] [facility] 4 [facility] 04-21-2023 13:05-0400 Diastolic blood pressure 75 mm[Hg] [facility] 4 [facility] 04-21-2023 13:05-0400 Heart rate 78 /min [facility] 4 [facility] 04-21-2023 13:05-0400 Respiratory rate 20 /min [facility] 4 [facility] 04-21-2023 13:05-0400 Systolic blood pressure 117 mm[Hg] [facility] 4 [facility] 04-21-2023 10:29-0400 Body mass index (BMI) [Ratio] 27.89 kg/m2 [facility] 4 [facility] 04-21-2023 10:29-0400 Body weight 76.02 kg [facility] 4 [facility] 02-20-2023 11:48-0500 Body height 165.1 cm Lyndsey Anders MD Work Phone: [facility] 02-20-2023 11:48-0500 Body mass index (BMI) [Ratio] 27.46 kg/m2 Lyndsey Anders MD Work Phone: [facility] 02-20-2023 11:48-0500 Body temperature 98.91 [degF] Lyndsey Anders MD Work Phone: [facility] 02-20-2023 11:48-0500 Body weight 74.84 kg Lyndsey Anders MD Work Phone: [facility] 02-20-2023 11:48-0500 Diastolic blood pressure 72 mm[Hg] Lyndsey Anders MD Work Phone: [facility] 02-20-2023 11:48-0500 Heart rate 104 /min Lyndsey Anders MD Work Phone: [facility] 02-20-2023 11:48-0500 SaO2% (BldA) [Mass fraction] 99 % Lyndsey Anders MD Work Phone: [facility] 02-20-2023 11:48-0500 Systolic blood pressure 114 mm[Hg] Lyndsey Anders MD Work Phone: [facility] 02-17-2023 14:26-0500 Body temperature 99.1 [degF] [address] 02-17-2023 14:26-0500 Diastolic blood pressure 77 mm[Hg] [address] 02-17-2023 14:26-0500 Heart rate 100 /min [address] 02-17-2023 14:26-0500 SaO2% (BldA) [Mass fraction] 97 % [address] 02-17-2023 14:26-0500 Systolic blood pressure 117 mm[Hg] [address] 02-17-2023 11:45-0500 Body mass index (BMI) [Ratio] 27.69 kg/m2 [facility] 3 [facility] 02-17-2023 11:45-0500 Body weight 75.48 kg [facility] 3 [facility] 02-17-2023 11:45-0500 Respiratory rate 20 /min [facility] 3 [facility] 02-06-2023 12:54-0500 Diastolic blood pressure 69 mm[Hg] Pfo 3 [facility] 02-06-2023 12:54-0500 Heart rate 92 /min [facility] 3 [facility] 02-06-2023 12:54-0500 Respiratory rate 18 /min P[facility] 3 [facility] 02-06-2023 12:54-0500 SaO2% (BldA) [Mass fraction] 100 % P[facility] 3 [facility] 02-06-2023 12:54-0500 Systolic blood pressure 104 mm[Hg] Pfo 3 [facility] 02-06-2023 11:37-0500 Body height 165.1 cm Pfo 3 [facility] 02-06-2023 11:37-0500 Body mass index (BMI) [Ratio] 27.46 kg/m2 [facility] 3 [facility] 02-06-2023 11:37-0500 Body temperature 98.4 [degF] [facility] 3 [facility] 02-06-2023 11:37-0500 Body weight 74.84 kg Pfo 3 [facility] Encounters Encounter Date Encounter Type Care Provider Facility Start: 05-26-2024 End: 05-26-2024 Bamboo flowsheet Parish Courtney DO Work Phone: [facility] Start: 05-26-2024 End: 05-26-2024 Bamboo flowsheet Parish Courtney DO Work Phone: [facility] Start: 05-26-2024 End: 05-26-2024 flow sheet Parish Courtney DO Work Phone: [facility] Comment on above: Third trimester preg aye; History of Crohn's disease; 29 weeks gestation of Start: 05-24-2024 End: 05-24-2024 ambulatory [facility] 3 [facility] Comment on above: Crohn's disease of b oth small and large intestine with intestinal obstruction (CMS-HCC) (Primary Dx) Start: 05-14-2024 End: 05-14-2024 Telephone encounter Raulito Jimenez DO Work Phone: [facility] Start: 05-12-2024 End: 05-12-2024 ambulatory YAQUELIN HORNE Not Available Start: 05-12-2024 End: 05-12-2024 flow sheet Yaquelin BELCHER Work Phone: [facility] Comment on above: Second trimester pre gnancy; 27 weeks gestation of Start: 05-12-2024 End: 05-12-2024 Bamboo flowsheet Yaquelin BELCHER Work Phone: [facility] Start: 05-12-2024 End: 05-12-2024 Bamboo flowsheet Yaquelin BELCHER Work Phone: [facility] Start: 05-12-2024 End: 05-12-[address] [facility] Start: 05-10-2024 End: 05-10-2024 Clinisync Result Encounter Parish Courtney DO Work Phone: [facility] Unsolicited Start: 05-10-2024 End: 05-10-2024 Clinisync Result Encounter Parish Courtney DO Work Phone: [facility] Unsolicited Start: 05-08-2024 End: 05-08-2024 Clinisync Result Encounter Parish Courtney DO Work Phone: [facility] Unsolicited Start: 05-08-2024 End: 05-08-2024 Clinisync Result Encounter Parish Courtney DO Work Phone: [facility] Unsolicited Start: 05-06-2024 End: 05-06-2024 ambulatory [facility] Start: 05-06-2024 End: 05-06-2024 Office outpatient visit 25 minutes Raulito Jimenez DO Work Phone: [facility] Comment on above: HTN complicating per ipregnancy, antepartum, second trimester (Primary Dx); 26 weeks gestation of ; Anemia affecting fourth ; HTN, goal below 130/80 Start: 05-04-2024 End: 05-04-2024 Chart abstracting Deepthi Tomas MD Work Phone: [facility] Start: 04-26-2024 End: 04-26-2024 Bamboo flowsheet [...] Orders Only Sharda Montiel MD Work Phone: [facility] Comment on above: Ulcerative colitis w ith other complication, unspecified location (CMS-HCC) (Primary Dx) Start: 04-22-2024 End: 04-22-2024 Orders Only Sharda Montiel MD Work Phone: [facility] Comment on above: Crohn's disease of c olon with other complication (CMS-HCC) (Primary Dx) Start: 04-21-2024 End: 04-21-2024 ambulatory YAQUELIN HORNE Not Available Start: 04-20-2024 End: 04-20-2024 Orders Only Sharda Montiel MD Work Phone: [facility] Start: 04-19-2024 End: 04-21-2024 Telephone encounter Sharda Montiel MD Work Phone: [facility] Start: 04-19-2024 End: 04-19-2024 ambulatory HILARY A TRACI [facility] Start: 04-19-2024 End: 04-19-2024 Office outpatient visit 40 minutes Sharda Montiel MD Work Phone: [facility] Comment on above: Thrombocytopenia (CM S-HCC) (Primary Dx); Crohn's disease with complication, unspecified gastrointestinal tract location (CMS-HCC) Start: 04-19-2024 End: 04-19-2024 ambulatory [facility] 1 [facility] Comment on above: [...] Department Unsolicited Start: 03-08-2024 End: 03-08-2024 ambulatory [facility] [...] Orders Only Sharda Montiel MD Work Phone: [facility] Comment on above: Therapeutic drug mon itoring (Primary Dx) Start: 01-31-2024 End: 01-31-2024 Emergency department patient visit [facility] Start: 01-26-2024 End: 01-26-2024 ambulatory [facility] Start: 01-26-2024 End: 01-26-2024 ambulatory [facility] Start: 01-23-2024 End: 01-23-2024 ambulatory YAQUELIN HORNE Not Available Start: 01-23-2024 End: 01-23-2024 Office outpatient visit 5 minutes [facility] Courtney Nurse [facility] Comment on above: GA: 11w2d Start: 01-13-2024 End: 01-13-2024 Orders Only Dominique Moya DISPATCH LEAD-EMPLOYMENT SUPERVISOR Work Phone: [facility] Comment on above: Iron deficiency anem ia due to chronic blood loss (Primary Dx); Iron malabsorption; Iron deficiency anemia, unspecified Start: 01-06-2024 End: 01-06-2024 Orders Only Dominique Moya DISPATCH LEAD-EMPLOYMENT SUPERVISOR Work Phone: [facility] Comment on above: Iron deficiency anem ia due to chronic blood loss (Primary Dx); Iron malabsorption; Iron deficiency anemia, unspecified Start: 01-03-2024 End: 01-03-2024 Emergency department patient visit [facility] Start: 12-17-2023 End: 12-18-2023 Telephone encounter Raf Zarco RN [facility] Start: 12-12-2023 End: 12-12-2023 ambulatory [facility] 2 [facility] Comment on above: Crohn's disease of b oth small and large intestine with intestinal obstruction (CMS-HCC) (Primary Dx) Start: 12-01-2023 End: 12-01-2023 Office outpatient visit 25 minutes Dominique Moya DISPATCH LEAD-EMPLOYMENT SUPERVISOR Work Phone: [facility] Comment on above: Iron deficiency (Ping hussein Dx); Crohn's disease of both small and large intestine with intestinal obstruction (CMS-HCC); Chronic fatigue; Leg cramps; Noncompliance; Iron deficiency anemia due to chronic blood loss; Iron malabsorption; Iron deficiency anemia, unspecified Start: 12-01-2023 End: 12-01-2023 ambulatory HILARY AVILES [facility] Start: 12-01-2023 End: 12-01-2023 ambulatory MJ PIZARRO [facility] Start: 10-31-2023 End: 10-31-2023 Office outpatient visit 25 minutes Sharda Montiel MD Work Phone: [facility] Comment on above: Therapeutic drug mon itoring (Primary Dx); Crohn's disease of both small and large intestine with other complication (CMS-HCC) Start: 10-31-2023 End: 10-31-2023 ambulatory [facility] 2 [facility] Comment on above: Crohn's disease of b oth small and large intestine with intestinal obstruction (CMS-HCC) (Primary Dx) Start: 09-17-2023 End: 09-17-2023 ambulatory HILARY AVILES [facility] Start: 09-17-2023 End: 09-17-2023 Office outpatient visit 25 minutes Hilary Aviles DISPATCH LEAD-EMPLOYMENT SUPERVISOR Work Phone: [facility] Comment on above: Current moderate epi sode of major depressive disorder without prior episode (CMS-HCC) (Primary Dx); Crohn's disease of both small and large intestine with intestinal obstruction (CMS-HCC) Start: 09-15-2023 End: 09-16-2023 Telephone encounter Sharda Montiel MD Work Phone: [facility] Start: 09-15-2023 End: 09-15-2023 ambulatory [facility] 3 [facility] Comment on above: Crohn's disease of b oth small and large intestine with intestinal obstruction (CMS-HCC) (Primary Dx) Start: 09-03-2023 End: 09-03-2023 Telephone encounter Hilary Aviles DISPATCH LEAD-EMPLOYMENT SUPERVISOR Work Phone: [facility] Start: 09-03-2023 End: 09-03-2023 ambulatory [facility] Start: 09-03-2023 End: 09-03-2023 Phys/qhp telephone evaluation 11-20 min Hilary Aviles DISPATCH LEAD-EMPLOYMENT SUPERVISOR Work Phone: [facility] Comment on above: Reactive depression (Primary Dx) Start: 08-20-2023 End: 08-20-2023 ambulatory [facility] Start: 08-20-2023 End: 08-20-2023 Office outpatient visit 25 minutes Hilary Aviles DISPATCH LEAD-EMPLOYMENT SUPERVISOR Work Phone: [facility] Comment on above: Anxiety (Primary Dx) Start: 08-04-2023 End: 08-04-2023 ambulatory [facility] 2 [facility] Start: 04-21-2023 End: 04-21-2023 ambulatory [facility] 4 [facility] Comment on above: Crohn's disease of b oth small and large intestine with intestinal obstruction (CMS-HCC) (Primary Dx) Start: 04-14-2023 Telephone encounter Nic Aguilar [facility] Start: 03-31-2023 Telephone encounter [facility] Start: 02-20-2023 End: 02-20-2023 Office outpatient visit 25 minutes Lyndsey Anders MD Work Phone: [facility] Comment on above: Reactive airway dise ase with acute exacerbation, unspecified asthma severity, unspecified whether persistent (Primary Dx); Shortness of breath; COVID-19; Sinusitis, unspecified chronicity, unspecified location Start: 02-17-2023 End: 02-17-2023 ambulatory [facility] 3 [facility] Comment on above: Crohn's disease of b oth small and large intestine with intestinal obstruction (CMS-HCC) (Primary Dx) Start: 02-06-2023 End: 02-06-2023 ambulatory [facility] In[facility] Chair 3 [facility] Comment on above: Iron deficiency anem ia due to chronic blood loss (Primary Dx); Iron deficiency anemia, unspecified; Iron malabsorption Start: 04-30-2022 End: 04-30-2022 ambulatory SEBASTIAN HERRING Facility: Start: 12-03-2016 End: 12-04-2016 Ambulatory SAMARA HERNANDEZ [facility] Start: 11-19-2016 End: 11-26-2016 Ambulatory SAMARA HERNANDEZ [facility] Start: 10-29-2016 End: 10-30-2016 Ambulatory SAMARA HERNANDEZ [facility] Start: 10-01-2016 End: 10-01-2016 Ambulatory SAMARA HERNANDEZ [facility] Start: 08-29-2016 End: 08-29-2016 Ambulatory SAMARA HERNANDEZ [facility] Procedures Date Procedure Procedure Detail Performing Clinician Start: 05-12-2024 Urnls dip stick/tabl et rgnt non-auto w/o micrscp Yaquelin BELCHER Work Phone: Start: 05-10-2024 ALL CBC WITH AUTO DIFF Parish Courtney DO Work Phone: Start: 05-08-2024 GLUCOSE TOLERANCE 3 HOUR Parish Courtney DO Work Phone: Start: 05-06-2024 Adult depression scr eening assessment Raulito Jimenez DO Work Phone: Start: 04-26-2024 Urnls dip stick/tabl et rgnt non-auto w/o micrscp Parish Courtney DO Work Phone: Start: 04-19-2024 Follow-up visit Follow-up SHARDA MONTIEL Start: 03-24-2024 US OB ANATOMY Parish Mac [...] dip stick/tabl et rgnt non-auto w/o micrscp Parishchano Valdez DO Work Phone: Start: 12-01-2023 Follow-up visit Follow-up DOMINIQUE Magen GRIFFIN Start: 09-17-2023 Adult depression scr eening assessment Hilary Aviles DISPATCH LEAD-EMPLOYMENT SUPERVISOR Work Phone: Start: 09-17-2023 Microscopic observat ion [Identifier] in Cervix by Cyto stain Sharda Montiel MD Work Phone: Start: 08-20-2023 Adult depression scr eening assessment Hilary Correauessler DISPATCH LEAD-EMPLOYMENT SUPERVISOR Work Phone: Start: 11-23-2020 Adult depression scr eening assessment Pfo 3 Plan of Treatment Date Care Activity Detail Author Start: 09-16-2026 Screening for malign ant neoplasm of cervix Pap Smear [facility] Start: 05-06-2025 Adult BMI Screening Adult BMI Screen ing [facility] Start: 05-06-2025 Depression Screening Depression Scre ening [facility] Start: 05-06-2025 Tobacco Screening Tobacco Screening [facility] Start: 04-19-2025 Adult BMI Screening Adult BMI Screen ing [facility] Start: 04-19-2025 Tobacco Screening Tobacco Screening [facility] Start: 01-30-2025 Adult BMI Screening Adult BMI Screen ing [facility] Start: 01-30-2025 Tobacco Screening Tobacco Screening [facility] Start: 01-02-2025 Adult BMI Screening Adult BMI Screen ing [facility] Start: 01-02-2025 Tobacco Screening Tobacco Screening [facility] Start: 12-11-2024 Adult BMI Screening Adult BMI Screen ing [facility] Start: 12-02-2024 End: 12-02-2024 Patient encounter procedure 12/02/2024 10:15 AM EDT Office Visit [facility] [address] [place] [phone] Mj Pizarro MD [facility] [address] [place] [address] [facility] Start: 10-30-2024 Adult BMI Screening Adult BMI Screen ing [facility] Start: 10-30-2024 Tobacco Screening Tobacco Screening [facility] Start: 10-11-2024 Influenza vaccination Influenza Vacc ine [facility] Start: 09-16-2024 Adult BMI Screening Adult BMI Screen ing [facility] Start: 09-16-2024 Depression Screening Depression Scre ening [facility] Start: 09-16-2024 Tobacco Screening Tobacco Screening [facility] Start: 09-14-2024 Adult BMI Screening Adult BMI Screen ing [facility] Start: 09-02-2024 Tobacco Screening Tobacco Screening [facility] Start: 08-19-2024 Adult BMI Screening Adult BMI Screen ing [facility] Start: 08-19-2024 Depression Screening Depression Scre ening [facility] Start: 08-19-2024 Tobacco Screening Tobacco Screening [facility] Start: 08-03-2024 Adult BMI Screening Adult BMI Screen ing [facility] Start: 06-28-2024 End: 06-28-2024 ambulatory 06/28/2024 10:30 AM EDT Infusion [facility] [address] [phone] [facility] Start: 06-09-2024 End: 06-09-2024 Patient encounter procedure 06/09/2024 2:50 PM EDT Routine [facility] [address] [facility] [place] [address] Yaquelin Horne PA [address] [place] [address] [facility] Start: 06-02-2024 End: 06-02-2024 Patient encounter procedure 06/02/2024 8:45 AM EDT Office Visit [facility] [address] [place] [phone] Deepthi Tomas MD [address] [facility] [address] [place] [address] [facility] Start: 06-02-2024 End: 06-02-2024 Patient encounter procedure 06/02/2024 7:30 AM EDT Appointment [facility] [address] [place] [address] [facility] Start: 05-31-2024 End: 05-31-2024 ambulatory 05/31/2024 10:00 AM EDT Infusion [facility] [address] [facility] [place] [phone] [facility] Start: 05-26-2024 End: 05-26-2024 Patient encounter procedure 05/26/2024 2:00 PM EDT Routine [facility] B[facility] OB [address] [place] [phone] Parish Valdez DO [address] [place] [address] [facility] Start: 05-24-2024 End: 05-24-2024 ambulatory 05/24/2024 10:30 AM EDT Infusion [facility] [address] [place] [phone] [facility] Start: 05-12-2024 End: 05-12-2024 Patient encounter procedure 05/12/2024 2:30 PM EDT Routine [facility] OB [address] [place] [address] Yaquelin Horne PA [address] [place], [place] [id number] [facility] Start: 05-06-2024 End: 05-06-2025 Echo complete W/O contrast Echo complete W/O contrast Echocardiography Routine HTN complicating peripregnancy, antepartum, second trimester 26 weeks gestation of Expected: 05/06/2024, Expires: 05/06/2025 [facility] Work Phone: Comment on above: Expected: 05/06/2024 , Expires: 05/06/2025 Start: 04-26-2024 End: 04-26-2024 Patient encounter procedure 04/26/2024 10:10 AM EDT Office Visit [facility] [address] [facility] [place] [address] Parish Valdez, DO [address] [facility] [address] [place], [place] [address] Arrived [facility] Comment on above: Arrived Start: 04-21-2024 End: 04-21-2024 Professional / ancillary services management 04/21/2024 11:00 AM EDT Ancillary Procedure [facility] [address] [facility] [place] [address] [facility] Start: 04-20-2024 Adult BMI Screening Adult BMI Screen ing [facility] Start: 04-19-2024 End: 04-19-2025 Cyanocobalamin vitamin b-12 Vitamin B12 Lab Routine Crohn's disease with complication, unspecified gastrointestinal tract location ([facility]) Expected: 04/19/2024, Expires: 04/19/2025 [facility] Comment on above: Expected: 04/19/2024 , Expires: 04/19/2025 Start: 04-19-2024 End: 04-19-2024 ambulatory 04/19/2024 10:30 AM EDT Infusion [facility] [address] [facility] [address] [place] [address] [facility] Start: 04-19-2024 End: [...] mellitus screening Expected: 04/14/2024 (Approximate), Expires: 04/14/2025 [facility] Healthcare Comment on above: Expected: 04/14/2024 (Approximate), Expires: 04/14/2025 Start: 04-14-2024 End: 04-14-2024 Patient encounter procedure 04/14/2024 1:40 PM EST Routine [facility] [address] [facility] [place] [phone] Parish Valdez DO [address] [place] [address] [facility] Start: 03-17-2024 End: 09-14-2024 Alpha fetoprotein, maternal Alpha fetoprotein, maternal Lab Routine Second trimester 19 weeks gestation of Expected: 03/17/2024 (Approximate), Expires: 09/14/2024 [facility] Healthcare Comment on above: Expected: 03/17/2024 (Approximate), Expires: 09/14/2024 Start: 03-17-2024 End: 03-17-2025 US for US OB 14+ weeks anatomy scan Imaging Routine Screening, , for anatomic survey Expected: 03/17/2024, Expires: 03/17/2025 [facility] Healthcare Comment on above: Expected: 03/17/2024 , Expires: 03/17/2025 Start: 03-17-2024 End: 03-17-2024 Patient encounter procedure 03/17/2024 10:30 AM EST Routine [facility] [address] [facility] [place] [phone] Yaquelin Horne PA [address] [place] [address] [facility] Start: 03-08-2024 End: 03-08-2024 ambulatory 03/08/2024 10:00 AM EST Infusion [facility] [address] [address] [facility] Start: 02-21-2024 Adult BMI Screening Adult BMI Screen ing [facility] Start: 02-21-2024 Tobacco Screening Tobacco Screening [facility] Start: 02-18-2024 Adult BMI Screening Adult BMI Screen ing [facility] Start: 02-18-2024 End: 02-18-2024 Patient encounter procedure 02/18/2024 11:30 AM EST Routine [facility] [address] [place] [address] Parish Valdez, DO [address] [place] [address] [facility] Start: 02-07-2024 Tobacco Screening Tobacco Screening [facility] Start: 01-31-2024 Adult BMI Screening Adult BMI Screen ing [facility] Start: 01-31-2024 Tobacco Screening Tobacco Screening [facility] Start: 01-26-2024 End: 01-26-2024 ambulatory 01/26/2024 10:00 AM EST Infusion [facility] [address] [phone] [facility] Start: 01-23-2024 End: 01-22-2025 [...] first trimester Expected: 01/23/2024 (Approximate), Expires: 01/22/2025 [facility] Comment on above: Expected: 01/23/2024 (Approximate), Expires: 01/22/2025 Start: 01-23-2024 End: 01-22-2025 US Pelvis transvaginal US OB transvaginal Imaging Routine Missed menses Expected: 01/23/2024 (Approximate), Expires: 01/22/2025 [facility] Comment on above: Expected: 01/23/2024 (Approximate), Expires: 01/22/2025 Start: 12-22-2023 End: 12-22-2023 Patient encounter procedure 12/22/2023 3:40 PM EST Office Visit [facility] [address] [place] [phone] Hilary Aviles, DISPATCH LEAD-EMPLOYMENT SUPERVISOR [address] [facility] [address], [place] [address] [facility] Start: 12-12-2023 End: 12-12-2023 ambulatory 12/12/2023 10:00 AM EDT Infusion [facility] [address] [phone] [facility] Start: 11-20-2023 End: 11-20-2023 Patient encounter procedure 11/20/2023 1:00 PM EDT Office Visit [facility] [address] [place] [phone] Mj Pizarro MD [address] [place] [address] [facility] Start: 11-19-2023 End: 11-19-2023 Patient encounter procedure 11/19/2023 9:40 AM EDT Office Visit [facility] [address] [place] [address] [phone] Hilary Aviles, DISPATCH LEAD-EMPLOYMENT SUPERVISOR [address], [place] [address] [place], [place] [phone] [facility] Start: 10-31-2023 End: 10-30-2024 C-reactive protein C-reactive protein Lab Routine Crohn's disease of both small and large intestine with other complication ([facility]) Expected: 10/31/2023, Expires: 10/30/2024 [facility] Comment on above: Expected: 10/31/2023 , Expires: 10/30/2024 Start: 10-31-2023 End: 10-30-2024 Cyanocobalamin vitamin b-12 Vitamin B12 Lab Routine Crohn's disease of both small and large intestine with other complication (CMS-HCC) Expected: 10/31/2023, Expires: 10/30/2024 [facility] Comment on above: Expected: 10/31/2023 , Expires: 10/30/2024 Start: 10-31-2023 End: 10-30-2024 Erythrocyte sedimentation rate Erythrocyte Sedimentation Rate (ESR) Lab Routine Crohn's disease of both small and large intestine with other complication ([facility]) Expected: 10/31/2023, Expires: 10/30/2024 [facility] Comment on above: Expected: 10/31/2023 , Expires: 10/30/2024 Start: 10-31-2023 End: 10-31-2023 ambulatory 10/31/2023 9:30 AM EDT Infusion [facility] [address] [place] [phone] [facility] Start: 10-31-2023 End: 10-31-2023 Patient encounter procedure 10/31/2023 9:00 AM EDT Office Visit [facility] [address] [facility] [address] [place] [address] Sharda Montiel MD [address] [facility], [address] [place] [address] [facility] Start: 10-27-2023 End: 10-27-2023 ambulatory 10/27/2023 12:00 PM EDT Infusion [facility] [address] [place] [address] [address] [place] [address] [facility] Start: 10-27-2023 End: 10-27-2023 Patient encounter procedure 10/27/2023 11:30 AM EDT Office Visit [facility] [address] [place] [address] [address] [place] [address] [place] [address] [place] [address], [address] [place] [address] [facility] Start: 10-12-2023 Influenza vaccination Influenza Vacc ine [facility] Start: 09-17-2023 End: 09-17-2023 Patient encounter procedure 09/17/2023 9:20 AM EDT Office Visit [facility] [address] [place] [phone] Hilary Aviles, DISPATCH LEAD-EMPLOYMENT SUPERVISOR [address] [facility] [address], [place], [place] [phone] [facility] Start: 09-15-2023 End: 09-15-2023 ambulatory 09/15/2023 10:00 AM EDT Infusion [facility] [address] [place] [address] [address] [place] [address] [facility] Start: 06-17-2023 End: 06-17-2023 Patient encounter procedure 06/17/2023 11:15 AM EDT Office Visit [facility] [address] [facility] [address] [place] [address] Meaghan King PA-C [address] [facility] [address] [place] [address] [facility] Start: 06-10-2023 End: 06-10-2023 ambulatory 06/10/2023 10:30 AM EDT Infusion [facility] [address] [facility] [address] [place] [address] [facility] Start: 04-21-2023 End: 04-21-2023 ambulatory 04/21/2023 10:00 AM EDT Infusion [facility] [address] [facility] [address] [place] [address] [facility] Start: 03-31-2023 End: 03-31-2023 ambulatory 03/31/2023 10:00 AM EST Infusion [facility] [address] [facility] [address] [place] [address] [facility] Start: 02-17-2023 End: 02-17-2023 ambulatory 02/17/2023 11:30 AM EST Infusion [facility] [address] [facility] [address] [place] [address] [facility] Start: 10-11-2022 Influenza vaccination Influenza Vacc ine [facility] Start: 11-23-2021 Depression Screening Depression Scre [facility] Start: 2010 Screening for malign ant neoplasm of cervix Pap Smear [facility] Start: 2008 DTaP,Tdap and Td Vaccines (1 - Tdap) DTaP,Tdap and Td Vaccines ( - Tdap) [facility] Start: 11-11-2007 Adult BMI Follow Up Plan Adult BMI F ollow Up Plan [facility] Bacteria identified in Urine by Culture Urine culture Microbiology Routine Missed menses Ordered: 01/23/2024 [facility] Comment on above: Ordered: 01/23/2024 End: 10-30-2024 Basic metabolic 2000 panel - Serum or Plasma Basic Metabolic Panel Lab Routine Therapeutic drug monitoring Crohn's disease of both small and large intestine with other complication ([facility]) 1 Occurrences starting 10/31/2023 until 10/30/2024 [facility] Comment on above: 1 Occurrences starti ng 10/31/2023 until 10/30/2024 End: 10-30-2024 Calprotectin, F Calprotectin, F Lab Routine Crohn's disease of both small and large intestine with other complication ([facility] [facility] 1 Occurrences starting 10/31/2023 until 10/30/2024 [facility] Work Phone: Comment on above: 1 Occurrences starti ng 10/31/2023 until 10/30/2024 End: 04-22-2025 Calprotectin, F Calprotectin, F Lab Routine Crohn's disease of colon with other complication [place] 1 Occurrences starting 04/22/2024 until 04/22/2025 [facility] Work Phone: Comment on above: 1 Occurrences starti ng 04/22/2024 until 04/22/2025 End: 04-23-2025 Calprotectin, F Calprotectin, F Lab Routine Ulcerative colitis with other complication, unspecified location [place] 1 Occurrences starting 04/23/2024 until 04/23/2025 [facility] Work Phone: Comment on above: 1 Occurrences starti ng 04/23/2024 until 04/23/2025 End: 10-30-2024 CBC panel - Blood by Automated count CBC without diff Lab Routine Therapeutic drug monitoring 1 Occurrences starting 10/31/2023 until 10/30/2024 [facility] Comment on above: 1 Occurrences starti ng 10/31/2023 until 10/30/2024 CBC W Auto Different ial panel - Blood CBC and differential Lab Routine Missed menses , unspecified gestational age Ordered: 01/23/2024 [facility] Comment on above: Ordered: 01/23/2024 End: 04-19-2025 CBC W Auto Differential panel - Blood CBC auto differential Lab Routine Thrombocytopenia (CMS-HCC) 1 Occurrences starting 04/19/2024 until 04/19/2025 [facility] Work Phone: Comment on above: 1 Occurrences starti ng 04/19/2024 until 04/19/2025 CHLAMYDIA TRACHOMATI S (GENITO/STI) CHLAMYDIA TRACHOMATIS (GENITO/STI) Lab Routine STD exposure Ordered: 03/17/2024 [facility] Comment on above: Ordered: 03/17/2024 Hemoglobin A1c/Hemoglobin.total in Blood Hemoglobin A1c Lab Routine Missed menses , unspecified gestational age Ordered: 01/23/2024 [facility] Comment on above: Ordered: 01/23/2024 Hepatitis B virus surface Ag [Presence] in Serum or Plasma by Immunoassay Hepatitis B surface antigen Lab Routine Missed menses , unspecified gestational age Ordered: 01/23/2024 [facility] Comment on above: Ordered: 01/23/2024 Hepatitis C virus Ab [Presence] in Serum or Plasma by Immunoassay Hepatitis C antibody Lab Routine Missed menses , unspecified gestational age Ordered: 01/23/2024 [facility] Comment on above: Ordered: 01/23/2024 HIV-1/HIV-2 antigen/antibody combination immunoassay HIV-1 and HIV-2 antibodies Lab Routine Missed menses , unspecified gestational age Ordered: 01/23/2024 [facility] Comment on above: Ordered: 01/23/2024 End: 10-30-2024 Liver panel Liver panel Lab Routine Therapeutic drug monitoring Crohn's disease of both small and large intestine with other complication ([facility]) 1 Occurrences starting 10/31/2023 until 10/30/2024 [facility] on above: 1 Occurrences starti ng 10/31/2023 until 10/30/2024 End: 06-08-2024 Mycobacterium TB by Quantiferon Gold Mycobacterium TB by Quantiferon Gold Lab Routine Crohn's disease of both small and large intestine with intestinal obstruction ([facility]) 1 Occurrences starting 06/09/2023 until 06/08/2024 [facility] Work Phone: Comment on above: 1 Occurrences starti ng 06/09/2023 until 06/08/2024 Neisseria gonorrhoea e DNA [Presence] in Unspecified specimen by ROBERT with probe detection Neisseria gonorrhea DNA probe, direct Lab Routine STD exposure Ordered: 03/17/2024 [facility] Comment on above: Ordered: 03/17/2024 End: 02-07-2023 Oxygen Therapy - Maintain SpO2: 90% or greater; *HELIOTHERAPIST Guidelines for O2: Yes; Document: file://[employer].or g/epic/EPIC_Reference/Or ders/Respiratory%20Care% 20Guidelines/CPG%20Oxyge n%[id number].pdf Oxygen Therapy - Maintain SpO2: 90% or greater; *HELIOTHERAPIST Guidelines for O2: Yes; Document: file://[employer].org /epic/EPIC_Reference/Orde rs/Respiratory%20Care%20G uidelines/CPG%20Oxygen%20 2015.pdf Respiratory Care STAT Iron deficiency anemia due to chronic blood loss Iron deficiency anemia, unspecified Iron malabsorption As Needed for 1 Occurrences starting 02/06/2023 until 02/07/2023 MD-[facility] Work Phone: Comment on above: As [...] persistent 1 Occurrences starting 02/20/2023 until 02/21/2024 [employer] Work Phone: Comment on above: 1 Occurrences starti ng 02/20/2023 until 02/21/2024 Reagin Ab [Presence] in Serum by RPR RPR Lab Routine Missed menses , unspecified gestational age Ordered: 01/23/2024 [facility] Comment on above: Ordered: 01/23/2024 Rubella antibody, IgG Rubella an tibody, IgG Lab Routine Missed menses , unspecified gestational age Ordered: 01/23/2024 [facility] Comment on above: Ordered: 01/23/2024 SURESWAB(R) ADVANCED VAGINITIS PLUS, TMA SURESWAB(R) ADVANCED VAGINITIS PLUS, TMA Pathology and Cytology Routine Vaginal discharge Ordered: 03/17/2024 [facility] [employer] Work Phone: Comment on above: Ordered: 03/17/2024 End: 02-02-2025 Thiopurine Metabs Thiopurine Metabs Lab Routine Therapeutic drug monitoring 1 Occurrences starting 02/03/2024 until 02/02/2025 [facility] Work Phone: Comment on above: 1 Occurrences starti ng 02/03/2024 until 02/02/2025 End: 10-30-2024 Thiopurine Metabs Thiopurine Metabs Lab Routine Therapeutic drug monitoring 1 Occurrences starting 10/31/2023 until 10/30/2024 [facility] Comment on above: 1 Occurrences starti ng 10/31/2023 until 10/30/2024 End: 10-30-2024 Vitamin D 25 hydroxy Vitamin D 25 hydroxy Lab Routine Crohn's disease of both small and large intestine with other complication ([facility]) 1 Occurrences starting 10/31/2023 until 10/30/2024 [facility] Comment on above: 1 Occurrences starti ng 10/31/2023 until 10/30/2024 End: 04-19-2025 Vitamin D 25 hydroxy Vitamin D 25 hydroxy Lab Routine Crohn's disease with complication, unspecified gastrointestinal tract location ([facility]) 1 Occurrences starting 04/19/2024 until 04/19/2025 [facility] Comment on above: 1 Occurrences starti ng 04/19/2024 until 04/19/2025 Payers Date Payer Category Payer Medicaid [id number] 2022 Medicaid [id number] 2021 Commercial Managed C are - POS [employer] [id number] 2021 Managed Care HMO (unspecified) [employer] [id number] 2021 Private Health Insurance AETNA AETNA POS II [id number] 2021-Present [phone] [facility] [id number] [place] [phone]. 2.7.3.361808.315 1989 Unknown [id number] 2.16.840.1.634233.3.579. 2.593 1989 Unknown [id number] 2.16.840.1.396201.3.579. 2.1286 1989 Unknown [id number] 2.16.840.1.627076.3.579. 2.1286 1989 Unknown [id number] 2.16.840.1.809664.3.579. 2.1286 1989 Unknown [id number] 2.16.840.1.373989.3.579. 2.1286 1989 Unknown [id number] 2.16.840.1.676063.3.579. 2.1286 1989 Unknown [id number] 2.16.840.1.369606.3.579. 2.1286 1989 Unknown [id number] 2.16.840.1.576134.3.579. 2.6 1989 Unknown [id number] 2.16.840.1.340958.3.579. 2.1285 1989 Unknown [id number] 2.16.840.1.576489.3.579. 2.1285 1989 Unknown [id number] 2.16.840.1.756007.3.579. 2.9 1989 Unknown [id number] 2.16.840.1.787455.3.579. 2.9 1989 Unknown [id number] 2.16.840.1.913786.3.579. 2.9 1989 Unknown [id number] 2.16.840.1.486275.3.579. 2.9 1989 Unknown [id number] 2.16.840.1.837188.3.579. 2.9 1989 Unknown [id number] 2.16.840.1.547966.3.579. 2.9 1989 Unknown [id number] 2.16.840.1.847491.3.579. 2.9 1989 Unknown [id number] 2.16.840.1.960274.3.579. 2.9 1989 Unknown [id number] 2.16.840.1.662733.3.579. 2.1286 1989 Unknown [id number] 2.16.840.1.029375.3.579. 2.1285 1989 Unknown [id number] 2.16.840.1.698659.3.579. 2.6 1989 Unknown [id number] 2.16.840.1.909820.3.579. 2.1286 1989 Unknown [id number] 2.16.840.1.990210.3.579. 2.1286 1989 Unknown [id number] 2.16.840.1.243062.3.579. 2.1286 1989 Unknown [id number] 2.16.840.1.235305.3.579. 2.1286 1989 Unknown [id number] 2.16.840.1.907864.3.579. 2.1286 1989 Unknown [id number] 2.16.840.1.814270.3.579. 2.1286 1989 Unknown [id number] 2.16.840.1.715050.3.579. 2.1286 1989 Unknown [id number] 2.16.840.1.039476.3.579. 2.1286 1989 Unknown [id number] 2.16.840.1.736601.3.579. 2.1286 1989 Unknown [id number] 2.16.840.1.444404.3.579. 2.1286 1959 Private Health Insurance [id number] Social History Date Type Detail Facility Start: 12-27-2021 End: 10-09-2022 Tobacco smoking status NHIS Never smoked tobacco [facility] Start: 12-27-2021 End: 10-09-2022 Tobacco use and exposure Smokeless tobacco non-user [facility] Start: 01-23-2024 End: 05-12-2024 Alcoholic beverage intake Lifetime non-drinker (finding) [facility] Start: 02-29-2020 End: 09-15-2023 History of Social function [facility] Start: 02-29-2020 End: 09-15-2023 Tobacco use panel [facility] Start: 11-19-2023 [facility] Start: 1990 Sex assigned at Female [facility] Start: 09-12-2022 Gender identity Identifies as female gender (finding) [facility] Start: 09-12-2022 Sexual orientation Heterosexual (finding) [facility] Start: 01-31-2024 End: 05-06-2024 Alcoholic beverage intake Current non-drinker of alcohol (finding) [facility] Adolescent depressio n screening assessment 15 [facility] Start: 1990 Sex assigned at Not on file [facility] Start: 09-13-2014 Sex Female (finding) [facility] Goals Date Patient Goal Desired Activity /State Personal health goal Comment on above: Formatting of this n ote might be different from the original. Evaluation of progress towards goal: patient to discharge to home. Clinical Notes 02-06-2023 to 05-26-2024 Karli Coronado, SONIA - 05/26/2024 2:00 PM Abdi Barba RN - 05/24/2024 10:30 AM Abdi Barba RN - 05/24/2024 10:30 AM EDTTelephone Encounter - Raulito Jimenez DO - 05/14/2024 1:16 PM EDT Note Date & Type Note Facility 05-26-2024 History of Present illness Narrative Reason for Appointment: Patient ID: Juan Luis Storey is a 33 y.o. female who presents for No chief complaint on file. Patient presents today for Return OB appointment. MEDICATIONS Current Outpatient Medications Medication Instructions azaTHIOprine (Imuran) 50 MG tablet TAKE 3 TABLETS BY MOUTH IN THE MORNING cholecalciferol (VITAMIN D-3) 1,000 Units Cobalamin Combinations (B-12) 100-5000 MCG sublingual tablet B12 folic acid (FOLVITE) 1,000 mcg, Oral, Every morning HYDROcodone-acetaminophen ([place]) 5-325 MG tablet 1 tablet, Oral, Every 6 hours PRN inFLIXimab-dyyb (Inflectra) 100 MG injection 5 mg/kg, Intravenous iron polysaccharides (PROFE) 391.3 mg, Oral, Daily ALLERGIES Allergies Allergen Reactions [...] Diagnosis Date Acute Crohn's disease with complication ([facility]) At standard risk for fall BMI 25.0-25.9,adult [...] nursing note reviewed. Exam conducted with a presidential support specialist present. Vitals: Estimated body mass index is 31.62 kg/m as calculated from the following: Height as of 09/15/23: 5' 5 . Weight as of this encounter: 190 lb. BP: 130/82 Patient's last menstrual period was 11/05/2023. ASSESSMENT & PLAN ICD-10-CM 1. Third trimester Z34.93 2. History of Crohn's disease Z87.19 3. 29 weeks gestation of Z3A.29 Return OB: Patient presents today for a routine obstetrics appointment. Patient is currently 29w0d . Patient states she is doing well but has complaints of being tired due to current . Patient has verbalizes frequent movement. labor precautions was discussed/given and patient was instructed to perform kick counts three times a day. Pt baby should not receive any live vaccines until 6 months of age. No orders of the defined types were placed in this encounter. Follow Up: Patient is to return to office in 2 week for routine OB appointment. Documented by Karli Coronado LPN on behalf of: Parish Valdez DO documented in this encounter [facility] 05-24-2024 History of Present illness Narrative Infusion start time: 1050 am Patient here for Avsola infusion. Patient denies any recent infections or on antibiotics, open wounds, recent/future surgery, vaccinations or insurance changes. IV started with 22g needle to right arm by Yaquelin Barba RN x1 attempt. Patient tolerated well. Avsola Lot# [id number] Exp- 10/11/2027 Time out performed prior to medication administration. Name, , medication(s) verified 1253 patient infusion complete. IV flushed with 20 ml normal saline. IV discontinued, catheter intact, vitals WNL. Patient tolerated infusion well documented in this encounter [facility] 05-14-2024 Miscellaneous Notes Spoke with patient about echocardiogram results from April 11. Discussed with patient that there was no evidence of pulmonary hypertension which was the indication for the echocardiogram as there were findings that may suggest pulmonary hypertension on her CTA of her chest from the emergency Ejection fraction measured at 55 to 60%. I explained to the patient that echocardiogram did show trace to mild mitral and pulmonic regurgitation and vgij-fe-dxoabvvl tricuspid regurgitation which would be the cause for her heart murmur Plan: No further evaluation is necessary at this time. documented in this encounter [facility] 05-14-2024 Telephone encounter Note Spoke with patient about echocardiogram results from April 11. Discussed with patient that there was no evidence of pulmonary hypertension which was the indication for the echocardiogram as there were findings that may suggest pulmonary hypertension on her CTA of her chest from the emergency Ejection fraction measured at 55 to 60%. I explained to the patient that echocardiogram did show trace to mild mitral and pulmonic regurgitation and lzfo-lb-lkppfuib tricuspid regurgitation which would be the cause for her heart murmur Plan: No further evaluation is necessary at this time. [facility] 05-12-2024 History of Present illness Narrative Reason for [...] (FOLVITE) 1,000 mcg, Oral, Every morning HYDROcodone-acetaminophen ([place]) 5-325 MG tablet 1 tablet, Oral, Every 6 hours PRN inFLIXimab-dyyb (Inflectra) 100 MG injection 5 mg/kg, Intravenous iron polysaccharides (PROFE) 391.3 mg, Oral, Daily ALLERGIES Allergies Allergen Reactions [...] nursing note reviewed. Exam conducted with a presidential support specialist present. Vitals: Estimated body mass index is 31.45 kg/m as calculated from the following: Height as of 09/14/: 5' 5 . Weight as of this encounter: 189 lb. BP: 130/78 Patient's last menstrual period was 11/05/2023. ASSESSMENT & PLAN ICD-10-CM 1. Second trimester Z34.92 POCT urinalysis dipstick manually resulted 2. 27 weeks gestation of Z3A.27 Return OB: Patient presents today for a routine obstetrics appointment. Patient is currently 27w0d . Patient states she is doing well but has complaints of being tired due to current . Patient has verbalizes frequent movement. labor precautions was discussed/given and patient was instructed to perform kick counts three times a day. Orders Placed This Encounter Procedures POCT urinalysis dipstick manually resulted Follow Up: Patient is to return to office in 2 week for routine OB appointment. 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 Hemoglobin on 05/04 was 9.4 begin iron supplement that she had been prescribed. Advised patient that some of her symptoms of shortness of breath and tachycardia could be a result of low hemoglobin levels during [facility] 05-06-2024 Miscellaneous Notes Associated Problem(s): [...] seek medical care. documented in this encounter [facility] 05-06-2024 Evaluation + Plan note [...] pain to seek medical care. [facility] 05-06-2024 History of Present illness Narrative Images from the original note were not included. [facility] [address] [place] [address] [place] [address] Patient: Juan Luis Storey Date of : 1990 Encounter Date: 05/06/2024 Subjective: Chief Complaint Chief Complaint Patient presents with Er Follow-up History of Present Illness Juan Luis Storey is a 33 y.o. female, established patient, that presents to the office for ER follow up for elevated blood pressure in patient Hypertension Chronicity: Seen at [facility] on 05/04/24 for shortness of breath, palpitations [...] obstruction (CMS-HCC) 10/17/2017 Chronic diarrhea Colon stricture ([facility]) 04/02/2018 Crohn's colitis ([facility]) Crohn's disease ([facility]) Crohn's disease of both small and large intestine with intestinal obstruction ([facility]) 03/03/2018 Current chronic use of systemic steroids 03/03/2018 Depression Diarrhea 10/17/2017 Added automatically from request for surgery [id number] Difficulty sleeping 01/13/2019 Gall stones History of [...] 10/21/2017 Performed by Sharda Montiel MD at [facility] COLONOSCOPY w/ Bx's & polypectomy N/A 10/08/2021 Performed by Sharda Montiel MD at [facility] EGD N/A 04/02/2018 Performed by Darshana Rae MD at [facility] LAPAROSCOPIC ILEOCECECTOMY, TAKE DOWN OF ILEODUDENAL FISTULA, DRAINAGE OF RETROPERITONEAL ABSCESS, OMENTAL PEDICLE FLAP N/A 04/02/2018 Performed by Jonathan Bautista MD at [facility] Family History Problem Relation Age of Onset [...] 05/06/24 1:03 PM documented in this encounter [facility] 05-06-2024 Instructions Raulito Jimenez DO - 05/06/2024 [...] sent through Care Everywhere.High blood pressure and ([place]jiboutian)documented in this encounter [facility] 04-26-2024 History of Present illness Narrative Reason [...] (FOLVITE) 1,000 mcg, Oral, Every morning HYDROcodone-acetaminophen ([place]) 5-325 MG tablet 1 tablet, Oral, Every [...] nursing note reviewed. Exam conducted with a presidential support specialist present. Vitals: Estimated body mass index [...] disease with complication, unspecified gastrointestinal tract location ([facility]) K50.919 Return OB: Patient presents [...] She does report she has spoken to [facility] but does not yet have a scheduled appointment but will reach back out to them to schedule related to non visualized stomach during anatomy scan. Documented by Kimi Simmons NP on behalf of: Parish Valdez DO documented in this encounter [facility] 04-19-2024 Miscellaneous Notes Biologic team, please plan [...] OV note and fax it to her news production assistant, Dr. Parish Valdez DO at [facility]. Thank you. Faxed to [phone] Zymfentra 120mg/ml PA was sent to plan via [facility] Schneider number: [id number] documented in this encounter [facility] 04-19-2024 Telephone encounter Note Biologic team, [...] OV note and fax it to her news production assistant, Dr. Parish Valdez DO at [facility]. Thank you. [facility] 04-19-2024 Telephone encounter Note Faxed to [phone] [facility] 04-19-2024 Telephone encounter Note Zymfentra 120mg/ml PA was sent to plan via [facility] Schneider number: [id number] [facility] 04-19-2024 History of Present illness Narrative Infusion start time: 11:10 am Patient here for her Avsola infusion. Patient denies any recent infections or on antibiotics, open wounds, recent/future surgery, vaccinations or insurance changes. 10:50 am IV started with 22g needle to left AC by JAD Arroyo x1 attempt. Patient tolerated well. Avsola x 4 vials Lot# [id number] Exp- 09/10/2027 Time out performed prior to medication administration. Name, , medication(s) verified 1310 patient infusion complete. IV flushed with normal saline. 1313 IV discontinued, catheter intact, vitals WNL. Patient tolerated infusion well documented in this encounter [facility] 04-19-2024 History of Present illness Narrative [facility] Follow Up Visit [...] obstruction (CMS-HCC) 10/17/2017 Chronic diarrhea Colon stricture ([facility]) 04/02/2018 Crohn's colitis ([facility]) Crohn's disease ([facility]) Crohn's disease of both small and large intestine with intestinal obstruction ([facility]) 03/03/2018 Current chronic use of systemic steroids 03/03/2018 Depression Diarrhea 10/17/2017 Added automatically from request for surgery [id number] Difficulty sleeping 01/13/2019 Gall stones History of [...] 10/21/2017 Performed by Sharda Montiel MD at [facility] COLONOSCOPY w/ Bx's & polypectomy N/A 10/08/2021 Performed by Sharda Montiel MD at [facility] EGD N/A 04/02/2018 Performed by Darshana Rae MD at [facility] LAPAROSCOPIC ILEOCECECTOMY, TAKE DOWN OF ILEODUDENAL FISTULA, DRAINAGE OF RETROPERITONEAL ABSCESS, OMENTAL PEDICLE FLAP N/A 04/02/2018 Performed by Jonathan Bautista MD at [facility] SOCIAL HISTORY: Social History Tobacco Use [...] VITAMIN B12: Lab Results Component Value Date [id number] 01/26/2024 FOLATE: Lab Results Component Value [...] 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 She noted she was going to [...] 1 dose; had to stop after this / cost with deductible resetting after 02/2020. -- [...] still [place]. [place] [address] units q.week x8 and then back to [...] containing iron. Patient Care Team: Hilary Aviles APRN-EMPLOYMENT SUPERVISOR as PCP - General (Family Medicine) Jonathan [...] breast milk exposure to IBD medications. However, 's exposed to biologics in utero should avoid the BCG vaccine until 6 months of age. These recommendations are in accordance with the findings of the ongoing PIANO study, The [place] Consensus Statements for the Management of Inflammatory Bowel Disease in , and the clinical care pathway released by the AGA. - AGA clinical practice update on -related gastrointestinal and liver disease: expert review (Gastroenterology. 2023;167(5):0698-7226). - Johnathan Farr, Rey Johnson, Ama N, et al. Inflammatory bowel disease in clinical care pathway: a report from the serbian gastroenterological association [employer] project working group. Gastroenterology. 2019;156(5):8715-7266. - Johnathan Farr, Yady RA, Lobito CD. [...] and strongly recommended annual f/u with a inventory accountant and regular use of skin protection -- [...] procedures Referring and communicating with other health resident care aid (not separately reported) Documenting clinical information in [...] for your understanding. Camila Montiel MD, [place] [address] PH: [phone] Juan Luis was seen today for follow-up. Diagnoses and all orders for this visit: Thrombocytopenia ([facility]) - CBC auto differential; Future Crohn's disease with complication, unspecified gastrointestinal tract location ([facility]) - Vitamin D 25 hydroxy; Future - Vitamin B12; Future documented in this encounter [facility] 04-19-2024 Instructions Sharda Montiel MD - 04/19/2024 10:00 AM EDT Labs - from today, 02/02/25, and 01/27/25 I recommend hepatitis A vaccines with your PCP, the health department, or any pharmacy; this is typically a series of 2 injections 3. 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 winding supervisor high dose vitamin D from the pharmacy Preventative Health Maintenance for Crohn's and ulcerative colitis -- Skin cancer prevention: I recommend annual follow up with a inventory accountant and regular use of skin protection given the increased risk of skin cancer, especially in patients on immunomodulator (Imuran / azathioprine / 6MP) or biologic medications (Remicade, Humira, Enyvio) -- Cervical cancer prevention: I recommend annual follow up with your news production assistant doctor with annual pap smears -- Tobacco [...] would be interested in meeting with a global expansion sales director please let me or your family doctor [...] the role of diet in IBD: [email or web address]?[email or web address]_client_ed_id =[email or web address] documented in this encounter [facility] 04-14-2024 History of Present illness [...] nursing note reviewed. Exam conducted with a presidential support specialist present. Vitals: Estimated body mass index [...] Parish Valdez DO documented in this encounter [facility] 03-17-2024 History of Present illness Narrative Reason [...] obtained without difficulty and patient was given [facility] order to have obtained. Orders Placed This Encounter Procedures US OB 14+ weeks anatomy scan CHLAMYDIA TRACHOMATIS (GENITO/STI) Neisseria gonorrhea DNA probe, direct Alpha fetoprotein, maternal Follow Up: Patient is to return to our office in 4 weeks for routine OB appointment Documented by SIMI Frazier on behalf of: SIMI Frazier documented in this encounter [facility] 03-08-2024 History of Present illness Narrative Infusion start time: 1040 Patient here for Avsola infusion. Patient denies any recent infections or on antibiotics, open wounds, recent/future surgery, vaccinations or insurance changes. IV started with 22g needle to left forearm by Yaquelin Barba RN x1 attempt. Patient tolerated well. Avsola Lot# [id number] 2vials Exp- 09/10/2027 Lot#[id number] 2 vials Exp08/10/2027 Time out performed prior to medication administration. Name, , medication(s) verified 10:40 am Time out performed with Yaquelin STREET. Avsola to be mixed and administered to patient per current treatment plan orders 1240 patient infusion complete. IV flushed with 10 ml normal saline. IV discontinued, catheter intact, vitals WNL. Patient tolerated infusion well [facility] History of Present illness Narrative Reason [...] nursing note reviewed. Exam conducted with a presidential support specialist present. Vitals: Estimated body mass index [...] undercooked meat, and stay away from [facility]. Patient has been consulted regarding any further [...] Parish Valdez DO documented in this encounter [facility] 01-23-2024 History of Present illness Narrative Reason [...] Diagnosis Date Acute Crohn's disease with complication (CMS/[facility]) At standard risk for fall BMI 25.0-25.9,adult [...] undercooked meat, and stay away from [facility]. Patient has also been advised to not [...] Veronica Klein LPN documented in this encounter [facility] 12-17-[address] Montiel, Patient called [...] send a letter to the family doctor/PCP, [employer], and compotype operator advising against the use of live vaccines for the 1st 6 months of the baby's life and to monitor the baby closely for any signs of infection. Please send her the following as well: [email or web address]/[email or web address]-[email or web address] -[email or web address]-[email or web address]-[email or web address] I recommend an OV w me in 02/2024 or 03/2024 Please disregard notes below. Summary These recommendations are in accordance with the findings of the ongoing PIANO study, The [place] Consensus Statements for the Management of Inflammatory Bowel Disease in , and the clinical care pathway released by the AGA. - Johnathan U, Yady BROWN, Lobito CD. Drug Safety and Risk of Adverse Outcomes for Patients With Inflammatory Bowel Disease. Gastroenterology. 2017;152(2):451-462.e2. - Gastroenterology. 2016 Mar;150[3]:734-57 - Johnathan U, Rey C, Ama N, et al. Inflammatory bowel disease in clinical care pathway: a report from the serbian gastroenterological association [facility]renthood project working group. Gastroenterology. 2019;156(5):1186-6073. Spoke with patient regarding recommendations, sent via [employer]. Will call patient back when March schedule is out, she needs Mondays. documented in this encounter [facility] 12-17-[address] Montiel, Patient called stating she took a urine test this past Friday and it was positive. She receives Inflectra 400 mg every 6 weeks for her Crohn's. She also takes Imuran 150 mg po daily. Ilesha is inquiring if she can continue taking her Imuran and Inflectra infusions? Please advise, thank you [facility] 12-17-2023 Telephone encounter Note Please let her [...] send a letter to the family doctor/PCP, [employer], and compotype operator advising against the use of live vaccines for the 1st 6 months of the baby's life and to monitor the baby closely for any signs of infection. Please send her the following as well: [email or web address]/[email or web address] wo-[email or web address]-[email or web address] -[email or web address]-vol-[email or web address] I recommend an OV w me in 02/2024 or 03/2024 Please disregard notes below. Summary These recommendations are in accordance with the findings of the ongoing PIANO study, The [place] Consensus Statements for the Management of Inflammatory [...] clinical care pathway: a report from the serbian gastroenterological association [facility]renthood project working group. Gastroenterology. 2019;156(5):9670-0908. [facility] Telephone encounter Note Spoke with patient regarding recommendations, sent via [employer]. Will call patient back when March schedule is out, she needs Mondays. [facility] 12-12-2023 History of Present illness Narrative Infusion start time: 10:50 am Patient here for Inflectra infusion. Patient denies any recent infections or on antibiotics, open wounds, recent/future surgery, vaccinations or insurance changes. 10:30 am IV started with 22g needle to right hand by JAD Arroyo x1 attempt. Patient tolerated well. Inflectra x 4 vials Lot# [id number] Exp- 04/09/2028 Time out performed prior to medication administration. Name, , medication(s) verified 11:50 am patient infusion complete. IV flushed with 10 ml normal saline. IV discontinued, catheter intact, vitals WNL. Patient tolerated infusion well documented in this encounter [facility] 12-01-2023 History of Present illness Narrative Images from the original note were not included. [facility] [address] [place] [phone] 12/01/2023 Chief Complaint Patient presents with [...] and large intestine with intestinal obstruction (CMS-HCC) Other Visit Diagnoses Iron deficiency - Primary [...] procedures Referring and communicating with other health resident care aid (not separately reported) Documenting clinical information in the electronic or other health record Independently interpreting results (not separately reported) and communicating results to the patient/family/caregiver Care coordination (not separately reported) ---- Please note that portions of this note may have been generated using voice recognition [employer] dictation software. Although every effort was made to ensure the accuracy of any automated transcriptions, some errors may have occurred. TERA Carbajal 12/01/23 1502 documented in this encounter [facility] 12-01-2023 Instructions TERA Carbajal - 12/01/2023 2:30 PM EDT Pending labs If iron is low, will order Injectafer IV If iron is low, will repeat labs in 3 months CBC-d iron panel ferritin If iron is normal, just follow up yearly as below Follow up yearly with labs same as above documented in this encounter [facility] 10-31-2023 History of Present illness Narrative IV Infusion start time: 944. Patient here for Inflectra infusion. Patient denies any recent infections or on antibiotics, open wounds, recent/future surgery, vaccinations or insurance changes. IV started with 22g needle to left hand by JAD Arroyo x1 attempt. Patient tolerated well. Inflectra x 4 vials Lot# [id number] Exp- [id number] Time out performed prior to medication administration. Name, , medication(s) verified 11:13 am patient infusion complete. IV discontinued, catheter intact, vitals WNL. Patient tolerated infusion well documented in this encounter [facility] 10-31-2023 History of Present illness Narrative [facility] Follow Up Visit [...] obstruction (CMS-HCC) 10/17/2017 Chronic diarrhea Colon stricture ([facility]) 04/02/2018 Crohn's colitis ([facility]) Crohn's disease ([facility]) Crohn's disease of both small and large intestine with intestinal obstruction ([facility]) 03/03/2018 Current chronic use of systemic steroids 03/03/2018 Depression Diarrhea 10/17/2017 Added automatically from request for surgery [id number] Difficulty sleeping 01/13/2019 Gall stones History of [...] 10/21/2017 Performed by Sharda Montiel MD at [facility] COLONOSCOPY w/ Bx's & polypectomy N/A 10/08/2021 Performed by Sharda Montiel MD at [facility] EGD N/A 04/02/2018 Performed by Darshana Rae MD at [facility] LAPAROSCOPIC ILEOCECECTOMY, TAKE DOWN OF ILEODUDENAL FISTULA, DRAINAGE OF RETROPERITONEAL ABSCESS, OMENTAL PEDICLE FLAP N/A 04/02/2018 Performed by Jonathan Bautista MD at [facility] SOCIAL HISTORY: Social History Tobacco Use [...] VITAMIN B12: Lab Results Component Value Date [id number] 1,378 (H) 08/02/2021 FOLATE: Lab Results Component [...] 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 [address] units q.week x8 and then back to [...] and strongly recommended annual f/u with a inventory accountant and regular use of skin protection -- [...] procedures Referring and communicating with other health resident care aid (not separately reported) Documenting clinical information in [...] for your understanding. Camila Montiel MD, MPH [facility] [place] [address] PH: [phone] Juan Luis was seen today for follow-up. [...] in the morning. documented in this encounter [facility] 10-31-2023 Instructions Sharda Montiel MD - 10/31/2023 [...] I recommend annual follow up with a inventory accountant and regular use of skin protection given the increased risk of skin cancer, especially in patients on immunomodulator (Imuran / azathioprine / 6MP) or biologic medications (Remicade, Humira, Enyvio) -- Cervical cancer prevention: I recommend annual follow up with your news production assistant doctor with annual pap smears -- Tobacco [...] would be interested in meeting with a global expansion sales director please let me or your family doctor [...] [email or web address] documented in this encounter [facility] 09-17-2023 History of Present illness [...] regarding her care. She is currently at [facility]. She is in a vegetative state. Juan [...] of major depressive disorder without prior episode ([facility]) - citalopram (CeleXA) 20 mg tablet; Take 1.5 tablets (30 mg total) by mouth in the morning. Crohn's disease of both small and large intestine with intestinal obstruction ([facility]) TERA Church 09/17/23 1443 documented in this encounter [facility] 09-15-2023 Miscellaneous Notes Refill infusion orders received; approved for now. Must make 10/31/23 OV or can no longer receive infusions here until she is seen. Tried to call patient, busy signal. Sent MyChart message. Patient called. Updated. She verbalized understanding Thank You documented in this encounter [facility] 09-15-2023 Telephone encounter Note Refill infusion orders received; approved for now. Must make 10/31/23 OV or can no longer receive infusions here until she is seen. [facility] 09-15-2023 Telephone encounter Note Tried to call patient, busy signal. Sent MyChart message. [facility] 09-15-2023 Telephone encounter Note Patient called. Updated. She verbalized understanding Thank You [facility] 09-15-2023 History of Present illness Narrative IV Infusion start time: 10:30 am Patient here for Inflectra infusion. Patient denies any recent infections or on antibiotics, open wounds, recent/future surgery, vaccinations or insurance changes. IV started with 22g needle to right AC by JAD Arroyo x1 attempt. Patient tolerated well. Inflectra x 4 vials Lot# [id number] Exp- [id number] Time out performed prior to medication administration. Name, , medication(s) verified 12:10 pm patient infusion complete. IV discontinued, catheter intact, vitals WNL. Patient tolerated infusion well documented in this encounter [facility] 09-03-2023 Miscellaneous Notes Patient presented to front desk lead window and paid for FMLA today. FMLA faxed. documented in this encounter [facility] 09-03-2023 Telephone encounter Note Patient presented to front desk lead window and paid for FMLA today. FMLA faxed. [facility] 09-03-2023 History of Present illness Narrative Video Visit via Real-time Synchronous Audiovisual Provider Location: [facility] [address] [place] [phone] Patient Location: Patient's home Video Visit Consent [...] that there are some limitations compared to jffd-hv-gzfk evaluations. The patient consented to the presence [...] Church 09/03/23 1308 documented in this encounter [facility] 08-20-2023 History of Present illness [...] work note, and instructed to bring in [facility] paperwork to be completed. Will start Celexa [...] Church 08/20/23 1530 documented in this encounter [facility] 08-04-2023 History of Present illness Narrative IV Infusion start time: 131. Patient here for Inflectra infusion. Patient denies any recent infections or on antibiotics, open wounds, recent/future surgery, vaccinations or insurance changes. IV started with 22g needle to left AC by JAD Arroyo x1 attempt. Patient tolerated well. Inflectra x 4 vials Lot# [id number] Exp- [id number] Time out performed prior to medication administration. [...] of info given. documented in this encounter [facility] 06-18-2023 Miscellaneous Notes Patient has missed the following appointments: 06/17/23 06/10/23 04/14/23 06/17/22 11/10/20 See other note for follow up documented in this encounter [facility] 06-18-2023 Telephone encounter Note Patient has missed the following appointments: 06/17/23 06/10/23 04/14/23 06/17/22 11/10/20 [facility] 06-18-2023 Telephone encounter Note See other note for follow up [facility] 06-10-2023 Miscellaneous Notes SANIYA Cheatham [...] 06/10/23). No show policy letter sent via CLEAR and certified mail. documented in this encounter [facility] 06-10-2023 Telephone encounter Note SANIYA Cheatham and Dr. Montiel, Patient was scheduled today for her Inflectra infusion; was a NO SHOW. She also no showed 04/14/23 Call placed to patient with no answer. Message left for patient to call office back in regards to rescheduling her infusion. [facility] 06-10-2023 Telephone encounter Note Reviewing the chart it appears she has had multiple no shows even prior to this. Please send no-show / late cancellation fee notice and remind her of the no-show policy and that we are tracking this information. If she no-shows again, she may be discharged from the practice per office policy. Thank you. [facility] 06-10-2023 Telephone encounter Note Patient called and rescheduled 06/18/23 [facility] 06-10-2023 Telephone encounter Note Chaparrita, Patient NO SHOWED for her OV yesterday and did not come to her rescheduled infusion today (she NO SHOWED 06/10/23). [facility] 06-10-2023 Telephone encounter Note No show policy letter sent via CDPt and certified mail. [facility] 04-21-2023 Miscellaneous Notes Due for [...] at 10:30 am documented in this encounter [facility] 04-21-2023 Telephone encounter Note Due for OV [facility] 04-21-2023 Telephone encounter Note There is nothing available for a recheck OV , can we use a new patient slot? [facility] 04-21-2023 Telephone encounter Note Yes that's ok [facility] 04-21-2023 Telephone encounter Note Left message for patient to call and schedule. [facility] 04-21-2023 Telephone encounter Note Message left for patient to call back. [facility] 04-21-2023 Telephone encounter Note Patient is scheduled with Meaghan on June 16 at 11:15 am. Infusion is scheduled on June 09 at 10:30 am [facility] 04-21-2023 History of Present illness Narrative 1020 am Patient here for Inflectra infusion. Patient denies any recent infections, open wounds, recent/future surgery, or insurance changes . IV started with 22g needle to right hand by raf street x 1 attempt. Patient tolerated well. Inflectra x 4 vials Lot #[id number] Exp date 12/11/2027 Time out performed with Raf Delatorre RN. 400 mg of Inflectra to be mixed and administered to patient per current treatment plan orders. 1305 patient infusion complete. IV discontinued, catheter intact, vitals WNL. Patient tolerated infusion well documented in this encounter [facility] 04-14-2023 Miscellaneous Notes Patient missed the visit. RN called patient and RN rescheduled patient for 04/21/2023. documented in this encounter [facility] 04-14-2023 Telephone encounter Note Patient missed the visit. RN called patient and RN rescheduled patient for 04/21/2023. [facility] 03-31-2023 Miscellaneous Notes RN was told that patient is calling regarding her insurance. The phone call was then transferred back to the infusion room. Patient states she lost her secondary insurance and wanted to know to what the amount she will be responsible for. RN informed patient to call her insurance company to find out that information. documented in this encounter [facility] 03-31-2023 Telephone encounter Note RN was told that patient is calling regarding her insurance. The phone call was then transferred back to the infusion room. Patient states she lost her secondary insurance and wanted to know to what the amount she will be responsible for. RN informed patient to call her insurance company to find out that information. [facility] History of Present illness Narrative Images from the original note were not included. [address] [place] [phone] Patient: Juan Luis Storey Date of : [...] morning. LYNDSEY ANDERS MD Family Medicine Physician [facility] Family Medicine / [facility] 02/20/23 This note was completed with voice recognition software. The document was reviewed for errors however some may still be present. Please do not hesitate to contact/[facility] the author to verify any questions/concerns. documented in this encounter [facility] 02-17-2023 History of Present illness Narrative 1145 Patient here for Inflectra infusion. Patient denies any recent infections, open wounds, recent/future surgery, or insurance changes . Site cleansed with alcohol. IV started with 22g needle by Yaquelin Barba RN in right hand. Patient tolerated well. Lot # [id number] Exp 07/11/27 1422 patient infusion complete. IV discontinued at 1422. Patient tolerated infusion well. documented in this encounter [facility] 02-06-2023 History of Present illness [...] in stable condition. documented in this encounter [facility] Evaluation note Diagnosis Missed menses , unspecified gestational age Encounter for supervision of normal first in first trimester headache in first trimester documented in this encounter [facility]* Diagnosis Therapeutic drug monitoring- Primary Encounter for therapeutic drug monitoring [facility] Diagnosis Second trimester state, incidental 15 weeks gestation of H/O oligohydramnios in prior , currently documented in this encounter [facility]* Diagnosis Crohn's disease of both small and large intestine with intestinal obstruction ([facility])- Primary [facility] Diagnosis Second trimester state, incidental 19 weeks gestation of Vaginal discharge Leukorrhea, not specified as infective STD exposure Screening, , for anatomic survey Encounter for anatomic survey documented in this encounter [facility] HealthcareEvaluation note* Diagnosis 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 deficiency anemia, unspecified Iron malabsorption Other specified intestinal malabsorption [facility] Diagnosis Crohn's disease of both small and large intestine with intestinal obstruction (CMS-HCC)- Primary [facility]* Diagnosis Crohn's disease of both small and large intestine with intestinal obstruction (CMS-HCC)- Primary documented in this encounter [facility]* Diagnosis Reactive airway disease with acute exacerbation, unspecified asthma severity, unspecified whether persistent- Primary Shortness of breath COVID-19 Sinusitis, unspecified chronicity, unspecified location documented in this encounter [facility]* Diagnosis Crohn's disease of both small and large intestine with intestinal obstruction (CMS-HCC)- Primary [facility]* Diagnosis Anxiety- Primary Anxiety state, unspecified documented in this encounter [facility]* Diagnosis Crohn's disease of both small and large intestine with intestinal obstruction (CMS-HCC)- Primary documented in this encounter [facility]* Diagnosis Reactive depression- Primary documented in this encounter [facility]* Diagnosis Crohn's disease of both small and large intestine with intestinal obstruction (CMS-HCC)- Primary documented in this encounter [facility]* Diagnosis Current moderate episode of major depressive disorder without prior episode (CMS-HCC)- Primary Crohn's disease of both small and large intestine with intestinal obstruction (CMS-HCC) documented in this encounter [facility]* Diagnosis Therapeutic drug monitoring- Primary Encounter for therapeutic drug monitoring Crohn's disease of both small and large intestine with other complication (CMS-HCC) documented in this encounter [facility]* Diagnosis Crohn's disease of both small and large intestine with intestinal obstruction (CMS-HCC)- Primary documented in this encounter [facility]* Diagnosis Iron deficiency- Primary Disorders [...] deficiency anemia, unspecified documented in this encounter [facility]* Diagnosis Crohn's disease of both small and large intestine with intestinal obstruction (CMS-HCC)- Primary [facility] in this [facility] Diagnosis 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 Other specified intestinal malabsorption Iron deficiency anemia, unspecified documented in this encounter [facility]* Diagnosis Diabetes mellitus screening Screening for diabetes mellitus Second trimester state, incidental 23 weeks gestation of documented in this encounter [facility] HealthcareEvaluation note* Diagnosis Thrombocytopenia (CMS-HCC)- Primary Unspecified thrombocytopenia Crohn's disease with complication, unspecified gastrointestinal tract location (CMS-HCC) documented in this encounter [facility]* Diagnosis Crohn's disease of colon with other complication (CMS-HCC)- Primary documented in this encounter [facility]* Diagnosis Ulcerative colitis with other complication, unspecified location (CMS-HCC)- Primary documented in this encounter [facility]* Diagnosis Second trimester state, incidental 23 weeks gestation of Crohn's disease with complication, unspecified gastrointestinal tract location (CMS/HCC) documented in this encounter [facility] HealthcareEvaluation note* Diagnosis HTN complicating peripregnancy, antepartum, second trimester- Primary 26 weeks gestation of Anemia affecting fourth HTN, goal below 130/80 documented in this encounter [facility]* Diagnosis Second trimester state, incidental 27 weeks gestation of documented in this encounter [facility] HealthcareEvaluation note* Diagnosis HTN complicating peripregnancy, antepartum, second trimester- Primary 26 weeks gestation of Anemia affecting fourth HTN, goal below 130/80 Crohn's disease of both small and large intestine with intestinal obstruction (CMS-HCC)- Primary documented in this encounter [facility]* Diagnosis Third trimester state, incidental History of Crohn's disease 29 weeks gestation of documented in this encounter [facility] HealthcareInstructionsNot on filedocumented in this [facility] SystemInstructionsNot on filedocumented in this [facility] SystemInstructionsNot on filedocumented in this [facility] SystemInstructionsNot on filedocumented in this [facility] InstructionsNot on filedocumented in this [facility] InstructionsNot on filedocumented in this [facility] InstructionsNot on filedocumented in this [facility] InstructionsNot on filedocumented in this [facility] Instructions* Attachments The following attachments cannot be sent through Care Everywhere. * Anxiety Discharge Instructions, Adult (Djiboutian) [facility] SystemInstructionsNot on file documented in this [facility] SystemInstructionsNot on file documented in this [facility] SystemInstructionsNot on file [facility]* Attachments The following attachments cannot be sent through Care Everywhere. * Depression (Djiboutian) documented in [facility] SystemInstructionsNot on file documented in this [facility] SystemInstructionsNot on file documented [facility] SystemInstructionsNot on file documented in this [facility] Summary Purpose Family History No [...] section and content) DATE CREATED AUTHOR 08/05/2017 [facility] DATE CREATED AUTHOR AUTHOR'S ORGANIZ ATION 06/26/2022 [facility] DATE CREATED AUTHOR AUTHOR'S ORGANIZ ATION 05/07/2024 [facility] DATE CREATED AUTHOR AUTHOR'S ORGANIZ ATION 05/15/2024 [facility] DATE CREATED AUTHOR AUTHOR'S ORGANIZ ATION 05/15/2024 [facility] DATE CREATED AUTHOR AUTHOR'S ORGANIZ ATION 05/25/2024 [facility] Reason for Visit (unrecogniz ed section [...] BIOSIMILAR, (AVSOLA), 10 MG INFUSION Hilary Aviles, DISPATCH LEAD-EMPLOYMENT SUPERVISOR [address], [place] [address] Phone: tel: fax: [facility] [address] [place] [phone] Phone: tel: fax: Referral ID Status Reason Start Date Expiration Date V isits Requested Visits Authorized [id number] Authorized 01/20/2024 01/18/2025 9 9 Reason Comments Outpatient Infusion Injectafer Specialty Diagnoses / Procedures Referred By Carroll juan Referred To Contact Diagnoses Iron deficiency anemia due to chronic blood loss Iron deficiency anemia, unspecified Iron malabsorption Procedures MO INJ FERRIC CARBOXYMALTOS 1MG Mj Pizarro MD [address] [facility] [address] [place] [address] P[address] Med Onc [address] [place] [phone] Referral ID Status Reason Start Date Expiration Date V isits Requested Visits Authorized [id number] Authorized 01/24/2023 07/23/2023 2 2 Reason Comments Outpatient Infusion Inflectra Specialty Diagnoses / Procedures Referred By Contac t Referred To Contact Gastroenterology Diagnoses Crohn's disease of both small and large intestine with intestinal obstruction Inflectra 5mg/kg every 6 weeks, Auth'd for 9 visits 07.26.22-07.26.23, SA/Crohns Procedures MO INFLIXIMAB INJECTION INFUSION Hilary Aviles, DISPATCH LEAD-EMPLOYMENT SUPERVISOR [address], [place] [address] [facility] [address] [phone] Referral ID Status Reason Start Date Expiration Date V isits Requested Visits Authorized [id number] Pending Review 07/26/2022 07/26/2023 9 9 Reason Comments Asthma Reason Comments Outpatient Infusion inflectra Specialty Diagnoses / Procedures Referred By Contac t Referred To Contact Gastroenterology Diagnoses Crohn's disease of both small and large intestine with intestinal obstruction Procedures MO INFLIXIMAB INJECTION Referral ID Status Reason Start Date Expiration Date V isits Requested Visits Authorized [id number] Authorized 04/01/2023 04/01/2024 9 9 Reason Comments Mental Health Problem Reason Comments FMLA Reason Comments Anxiety Depression Reason Comments Follow-up Patient is here for a follow up and denies any issues. Reason Comments Follow-up Specialty Diagnoses / Procedures Referred By Contac t Referred To Contact Gastroenterology Diagnoses Crohn's disease of both small and large intestine with intestinal obstruction Procedures MO INFLIXIMAB INJECTION Reason Comments Outpatient Infusion Specialty Diagnoses / Procedures Referred By Contac t Referred To Contact Gastroenterology Diagnoses Crohn's disease of both small and large intestine with intestinal obstruction [place] 5mg/kg (400mg) every 6 weeks/ Auth'd 01.20.24 - 01.18.25/ visits/ [id number] Dr. Montiel NO ACCELERATED INFUSION Procedures INJECTION, INFLIXIMAB-AXXQ, BIOSIMILAR, (AVSOLA), 10 MG INFUSION Hilary Aviles APRN-EMPLOYMENT SUPERVISOR [address], [place] [address] Phone: tel: fax: [facility] [address] [place] [address] [address] [place] [address] Phone: tel: fax: Reason Comments Er Follow-up Specialty Diagnoses / Procedures Referred By Carroll t Referred To Contact Diagnoses Crohn's disease of both small and large intestine with intestinal obstruction ([facility]) [place] [address] [place] [address], [address] [place] [address] Phone: tel: fax: [facility] [address] [place] [address] Phone: tel: fax: Referral ID Status Reason Start Date Expiration Date V isits Requested Visits Authorized [id number] Pending Review 01/21/2024 01/20/2025 1 1 Care Teams (unrecognized sec tion and content) Turnaround Engineer Relationship Specialty Start Date End Date Hilary Aviles MD [address] [place] [address] Referring Physician Nurse Practitioner 10/08/22 Turnaround Engineer Relationship Specialty Start Date End Date Hilary Aviles, DISPATCH LEAD-EMPLOYMENT SUPERVISOR [address], [place] [address] PCP - General Family Medicine 01/03/24 Turnaround Engineer Relationship Specialty Start Date End Date Hilary Aviles MD [address] [place] [address] Referring Physician Nurse Practitioner 10/08/22 Turnaround Engineer Relationship Specialty Start Date End Date Hilary Aviles MD [address] [place] [place] [address] Referring Physician Nurse Practitioner 10/08/22 Turnaround Engineer Relationship Specialty Start Date End Date Hilary Aviles MD [address] [place] [place] [address] Referring Physician Nurse Practitioner 10/08/22 Turnaround Engineer Relationship Specialty Start Date End Date Hilary Aviles, DISPATCH LEAD-EMPLOYMENT SUPERVISOR [address], [facility] [place] [address] PCP - General Family Medicine 01/03/24 Turnaround Engineer Relationship Specialty Start Date End Date Hilary Aviles MD [address] [place] [address] Referring Physician Nurse Practitioner 10/08/22 Turnaround Engineer Relationship Specialty Start Date End Date Hilary Aviles MD [address] [place] [place] [address] Referring Physician Nurse Practitioner 10/08/22 Turnaround Engineer Relationship Specialty Start Date End Date Hilary Aviles MD [address] [place] [address] Referring Physician Nurse Practitioner 10/08/22 Turnaround Engineer Relationship Specialty Start Date End Date Hilary Aviles APRN-EMPLOYMENT SUPERVISOR [address], [place] [address] PCP - General Family Medicine 12/26/22 Turnaround Engineer Relationship Specialty Start Date End Date Hilary Aviles APRN-[facility] [address], [place] [address] PCP - General Family Medicine 12/26/22 Turnaround Engineer Relationship Specialty Start Date End Date Hilary Aviles [facility] [address], [place] [address] PCP - General Family Medicine 12/26/22 Turnaround Engineer Relationship Specialty Start Date End Date Hilary Aviles APRN-[facility] [address], [place] [address] PCP - General Family Medicine 12/26/22 Turnaround Engineer Relationship Specialty Start Date End Date Hilary Aviles APRN-[facility] [address], [place] [address] PCP - General Family Medicine 12/26/22 Turnaround Engineer Relationship Specialty Start Date End Date Hilary Aviles APRN-[facility] [address], [place] [address] PCP - General Family Medicine 12/26/22 Turnaround Engineer Relationship Specialty Start Date End Date Hilary Aviles APRN-[facility] [address], [place] [address] PCP - General Family Medicine 12/26/22 Turnaround Engineer Relationship Specialty Start Date End Date Hilary Aviles APRN-[facility] [address], [place] [address] PCP - General Family Medicine 12/26/22 Turnaround Engineer Relationship Specialty Start Date End Date Hilary Aviles [facility] [address], [place] [address] PCP - General Family Medicine 12/26/22 Turnaround Engineer Relationship Specialty Start Date End Date Hilary Aviles [facility] [address], [place] [address] PCP - General Family Medicine 12/26/22 Turnaround Engineer Relationship Specialty Start Date End Date Hilary Aviles [facility] [address], [place] [address] PCP - General Family Medicine 12/26/22 Turnaround Engineer Relationship Specialty Start Date End Date Hilary Aviles [facility] [address], [place] [address] PCP - General Family Medicine 12/26/22 Turnaround Engineer Relationship Specialty Start Date End Date Hilary Aviles [facility] [address], [place] [address] PCP - General Family Medicine 12/26/22 Turnaround Engineer Relationship Specialty Start Date End Date Hilary Aviles [facility] [address], [place] [address] PCP - General Family Medicine 12/26/22 Turnaround Engineer Relationship Specialty Start Date End Date Hilary Aviles [facility] [address], [place] [address] PCP - General Family Medicine 01/03/24 Turnaround Engineer Relationship Specialty Start Date End Date Hilary Aviles [facility] [address], [place] [address] PCP - General Family Medicine 01/03/24 Turnaround Engineer Relationship Specialty Start Date End Date Hilary Aviles MD [address] [place] [address] Referring Physician Nurse Practitioner 10/08/22 Turnaround Engineer Relationship Specialty Start Date End Date Hilary Aviles [facility] [address], [place] [facility] [address] PCP - General Family Medicine 01/03/24 Turnaround Engineer Relationship Specialty Start Date End Date Hilary Aviles [facility] [address], [place] [address] PCP - General Family Medicine 01/03/24 Turnaround Engineer Relationship Specialty Start Date End Date Hilary Aviles [facility] [address], [place] [address] PCP - General Family Medicine 01/03/24 Turnaround Engineer Relationship Specialty Start Date End Date Hilary Aviles MD [address] [place] [address] Referring Physician Nurse Practitioner 10/08/22 Turnaround Engineer Relationship Specialty Start Date End Date Hilary Aviles APRN-CNP [address], [place] [address] PCP - General Family Medicine 01/03/24 Turnaround Engineer Relationship Specialty Start Date End Date Hilary Aviles MD [address] [place] [address] Referring Physician Nurse Practitioner 10/08/22 Turnaround Engineer Relationship Specialty Start Date End Date Hilary Aviles MD [address] [place] [address] [place] [address] Referring Physician Nurse Practitioner 10/08/22 Turnaround Engineer Relationship Specialty Start Date End Date Hilary Aviles APRN-CNP [address], [place] [address] PCP - General Family Medicine 01/03/24 Turnaround Engineer Relationship Specialty Start Date End Date Hilary Aviles APRN-CNP [address], [place] [address] PCP - General Family Medicine 01/03/24 FOR [...] BASED ON THE PRIMARY CLINICAL RECORDS. [facility] [employer] [facility] provides no warranty or guarantee of the accuracy or completeness of information in this document.
[2024-05-27] MEDS: NALBUPHINE HCL 10 MG/ML AMPULE IV (12:04)
[2024-05-27 12:08] VITALS: BP 147/87; PULSE 97
[2024-05-27] MEDS: 0.9 % SODIUM CHLORIDE 1,000 ML 1000 ML IV (12:10)
[2024-05-27 12:12] VITALS: TEMP 35.4
[2024-05-27 12:14] VITALS: TEMP 36.3
[2024-05-27 12:34] VITALS: BP 132/82; PULSE 87
[2024-05-27 12:43] LABS: Basophils Percent Auto 0.6 % (0.2-2.0); Eosinophils Absolute Auto 0.1 10^3/uL (0.0-0.7); Eosinophils Percent Auto 0.9 % (0.9-7.0); Hematocrit 29.8 % (36.0-48.0); Hemoglobin 9.5 g/dL (12.0-16.0); Immature Granulocytes Abs Auto 0.05 10^3/uL (0.00-0.03); Immature Granulocytes Pct Auto 0.7 % (0.0-0.5); Lymphocytes Absolute Auto 1.8 10^3/uL (1.2-3.8); Lymphocytes Percent Auto 26.4 % (20.5-60.0); Mean Corpuscular HGB Conc 31.9 g/dL (29.9-35.2); Mean Platelet Volume 11.5 fL (9.5-13.5); Monocytes Absolute Auto 0.4 10^3/uL (0.3-0.8); Monocytes Percent Auto 6.5 % (1.7-12.0); Neutrophils Absolute Auto 4.4 10^3/uL (1.4-6.5); Neutrophils Percent Auto 64.9 % (43.0-75.0); Platelet Count 201 10^3/uL (150-450); Red Blood Count 3.17 10^6/uL (4.20-5.40); Red Cell Distribution Width 15.5 % (11.0-15.0); White Blood Count 6.8 10^3/uL (4.0-11.0)
[2024-05-27 13:00] LABS: Alanine Aminotransferase 15 U/L (14-59); Albumin Globulin Ratio 0.7; Albumin Level 2.8 g/dL (3.4-5.0); Alkaline Phosphatase 53 U/L (46-116); Anion Gap 12.4; Aspartate Amino Transferase 12 U/L (15-37); BUN Creatinine Ratio 7.2; Bilirubin Total 0.5 mg/dL (0.2-1.0); Calcium 8.6 mg/dL (8.5-10.1); Carbon Dioxide 25.9 mmol/L (21.0-32.0); Chloride 103 mmol/L (98-107); Estimated GFR (African America >60 (>=60 mL/min/1.73m^2); Estimated GFR (Non-African Ame >60 (>=60 mL/min/1.73m^2); Globulin 4.3 g/dL; Glucose 115 mg/dL (74-106); Potassium 3.3 mmol/L (3.5-5.1); Sodium 138 mmol/L (136-145); Total Protein 7.1 g/dL (6.4-8.2)
[2024-05-27 13:01] LABS: Amylase 31 U/L (25-115); Lactate Dehydrogenase 189 U/L (81-234); Uric Acid 3.6 mg/dL (2.6-6.0)
[2024-05-27] MEDS: HYDROMORPHONE HCL 1 MG/ML CARTRIDGE IV (13:06)
[2024-05-27] MEDS: 0.9 % SODIUM CHLORIDE 1,000 ML 125 ML IV ×2 (13:14→21:15)
[2024-05-27 13:16] VITALS: BP 129/80; PULSE 87
[2024-05-27] MEDS: ONDANSETRON PF 4 MG/2 ML VIAL IV ×2 (15:27→22:06)
[2024-05-27] MEDS: OXYCODONE HCL/ACETAMINOPHEN 5MG/325MG 2 TAB PO ×2 (16:00→22:08)
[2024-05-27 19:57] VITALS: BP 131/78; PULSE 90
[2024-05-27 20:29] LABS: Creatinine Urine Random 99.29 mg/dL (20.00-300.00); Protein Creatinine Ratio Urine 0.36; Total Protein Urine Random 35.6 mg/dL (<=11.9)
[2024-05-28 01:00] VITALS: BP 124/63; PULSE 85
[2024-05-28] MEDS: ONDANSETRON PF 4 MG/2 ML VIAL IV (04:09)
[2024-05-28 04:35] VITALS: BP 129/85; PULSE 87
[2024-05-28] MEDS: 0.9 % SODIUM CHLORIDE 1,000 ML 125 ML IV (05:13)
[2024-05-28 08:04] VITALS: BP 129/77; PULSE 101; TEMP 37.2
[2024-05-28 08:35] LABS: Basophils Percent Auto 0.6 % (0.2-2.0); Eosinophils Percent Auto 0.6 % (0.9-7.0); Hematocrit 28.8 % (36.0-48.0); Hemoglobin 8.9 g/dL (12.0-16.0); Immature Granulocytes Abs Auto 0.04 10^3/uL (0.00-0.03); Immature Granulocytes Pct Auto 0.6 % (0.0-0.5); Lymphocytes Absolute Auto 1.8 10^3/uL (1.2-3.8); Lymphocytes Percent Auto 25.5 % (20.5-60.0); Mean Corpuscular HGB Conc 30.9 g/dL (29.9-35.2); Mean Corpuscular Volume 93.8 fL (81.0-99.0); Mean Platelet Volume 11.9 fL (9.5-13.5); Monocytes Absolute Auto 0.4 10^3/uL (0.3-0.8); Monocytes Percent Auto 6.2 % (1.7-12.0); Neutrophils Absolute Auto 4.7 10^3/uL (1.4-6.5); Neutrophils Percent Auto 66.5 % (43.0-75.0); Platelet Count 189 10^3/uL (150-450); Red Blood Count 3.07 10^6/uL (4.20-5.40); Red Cell Distribution Width 15.5 % (11.0-15.0); White Blood Count 7.1 10^3/uL (4.0-11.0)
[2024-05-28 08:48] LABS: Alanine Aminotransferase 9 U/L (14-59); Aspartate Amino Transferase 14 U/L (15-37); Estimated GFR (African America >60 (>=60 mL/min/1.73m^2); Estimated GFR (Non-African Ame >60 (>=60 mL/min/1.73m^2); Uric Acid 3.1 mg/dL (2.6-6.0)
[2024-05-28 08:53] LABS: INR 0.97; Partial Thromboplastin Time 26.9 sec (22.3-36.2); Prothrombin Time 10.3 sec (9.0-11.6)
[2024-05-28 09:08] LABS: Fibrinogen 380 mg/dL (200-400)
--- NOTE | 2024-05-28 09:33 | PC.NURSE ---
Addendum entered by Denise Ortiz 05/28/24 09:49: 0800 continued, explained collection procedure. lungs clear, hr s1s2 regular. States will be bringing home meds in. Original Note: 0800 Awake, states pain is a 3 with some intermittent nausea. Discussed plan of care and pt background. States her iv treatment for Crohns every 6 weeks was changed to a new med and she hasnt been feeling the same since. had vomiting two days in a row this week and was unable to keep her daily meds down and feels this contributed to her pain this week. States zofran causes constipation and tries to avoid taking that. Lab in and draws blood and 24 hour urine ex
--- NOTE | 2024-05-28 09:49 | PC.NURSE ---
0925 Took home meds, states pain is a 1 after using heatpack and was able to keep bites of breakfast down
[2024-05-29 09:59] LABS: Total Protein Urine Random 17.2 mg/dL (<=11.9)
[2024-05-29 10:15] LABS: Total Volume 24 Hour Urine 1500 mL/24hr
== END 2024-05-28 14:06 | disposition home or self-care (01) ==
PROVIDERS: Admitting Provider Obstetrics & Gynecology; PCP Nurse Practitioner; Visit Provider Obstetrics & Gynecology
DX: O26.893 Other specified pregnancy related conditions, third trimester (principal); Z3A.29 29 weeks gestation of pregnancy
CPT/HCPCS: 36415; 59025; 76815; 76817; 80053; 82150; 82565; 82570; 83615; 83690; 84156; 84450; 84460; 84520; 84550; 85025; 85384; 85610; 85730; 96374; 96375; 96376; G0378; G0379; J1171; J2300; J2405

== ENCOUNTER 2024-05-30 06:41 | Observation (INO) | payer OTHER, MEDICAID, SELFPAY ==
[2024-05-30] VITALS (7 sets, daily range): BP systolic 118–153; BP diastolic 72–95; PULSE 83–100; TEMP 30–36.3
--- OUTSIDE RECORDS SUMMARY | 2024-05-30 06:45 | XMS_ITS | CCD ---
Author Organization [facility] Care Team Providers Care Activity Therapist Name Role Phone ADAMOWICZ, SAMARA J Unavailable Unavailable ADAMOWICZ, SAMAAR J Unavailable Unavailable ADAMOWICZ, SAMARA J Unavailable Unavailable ADAMOWICZ, SAMARA J Unavailable Unavailable ADAMOWICZ, SAMARA J Unavailable Unavailable ADAMOWICZ, SAMARA J Unavailable Unavailable ADAMOWICZ, SAMARA J Unavailable Unavailable ADAMOWICZ, SAMARA J Unavailable Unavailable SEBASTIAN HERRING Attending Unavailable SEBASTIAN HERRING Consulting Unavailable SEBASTIAN HERRING Admitting Unavailable MISDR JUAN A [facility] Unavailable Hilary Aviles MD Unavailable [phone] Traci SENIOR PRODUCT DEVELOPMENT ENGINEER-NEWS PRODUCTION ASSISTANT, Hilary A Primary Care Provi lazarus Traci SENIOR PRODUCT DEVELOPMENT ENGINEER-NEWS PRODUCTION ASSISTANT, Hilary A Primary Care Provi lazarus Traci SENIOR PRODUCT DEVELOPMENT ENGINEER-NEWS PRODUCTION ASSISTANT, Hilary A Primary Care Provi lazarus HILARY [...] alise TRACI, HILARY A Primary Care Unavailable SESAR PRICE Attending Unavailable RAULITO JIMENEZ Referring Unavailable TRACI, [...] Unavailable TRACI, HILARY A Primary Care Unavailable ALMDORA, SHARDA B Referring Unavailable TRACI, HILARY A Primary Care Unavailable YAQUELIN HORNE Attending Unavailable PARISH VALDEZ Attending Unavailable YAQUELIN HORNE Attending Unavailable PARISH VALDEZ Attending Unavailable COURTNEY, PARISH Attending Unavailable YAQUELIN HORNE Attending Unavailable PARISH VALDEZ Attending Unavailable Allergies Allergy Classification Reported Allergen(s) Allergy Type Date of Onset Reaction(s) Facility (20 sources) Sertraline; Translations: [SERTRALINE] Drug Allergy 11-09-2018 Diarrhea [facility] Medications Current Medications Medication Drug Class(es) Dates Sig (Normalized) Sig (Original) acetaminophen 325 mg / HYDROcodone bitartrate 5 mg oral tablet (13 sources) Opioid Agonist Start: 04-20-2024 take 1 tablet by mouth every six hours for pain HYDROcodone-acetaminop hen ([place]) 5-325 MG tablet Indications: Abdominal pain, unspecified abdominal location , Crohn's disease with complication, unspecified gastrointestinal tract location (CMS/HCC) Take 1 tablet by mouth every 6 (six) hours if needed for moderate pain or severe pain for up to 15 doses 15 tablet 04/20/2024 Active [id number] 200 actuat albuterol 0.09 mg/actuat metered dose [...] Active End: 08-20-2023 cyanocobalamin/folic acid (v itamin N47-henqi acid) 1,000-400 mcg lozenge B12 08/20/2023 Discontinued [...] polysaccharide iron complex 391 mg oral capsule (13 sources) Start: 05-03-2024 End: 06-02-2024 take 1 [...] Test Name Value Interpretation Reference Range Facility ALL CBC WITH AUTO DIFFon BASOPHILS ABSOLUTE AUTO 0 [facility] Basophils/100 WBC (Bld) 0.6 % 0.2 - 2.0 % [facility] Eosinophils/100 WBC (Bld) 0.6 % Low 0.9 - 7.0 % [facility] Erythrocyte distribution width (RBC) [Ratio] 15.5 % High 11.0 - 15.0 % [facility] Hematocrit (Bld) [Volume fraction] 28.8 % Low 36.0 - 48.0 % [facility] Hemoglobin (Bld) [Mass/Vol] 8.9 g/dL Low 12.0 - 16.0 g/dL [facility] IMMATURE GRANULOCYTES ABS AUTO 0.04 High [facility] Immature granulocytes/100 WBC (Bld) 0.6 % High 0.0 - 0.5 % [facility] Interpretation and review of laboratory results Abnormal [facility] LYMPHOCYTES ABSOLUTE AUTO 1.8 [facility] Lymphocytes/100 WBC (Bld) 25.5 % 20.5 - 60.0 % [facility] MCH (RBC) [Entitic mass] 29 pg 26.7 - 34.0 pg [facility] MCHC (RBC) [Mass/Vol] 30.9 g/dL 29.9 - 35.2 g/dL [facility] MCV (RBC) [Entitic vol] 93.8 fL 81.0 - 99.0 fL [facility] MONOCYTES ABSOLUTE AUTO 0.4 [facility] Monocytes/100 WBC (Bld) 6.2 % 1.7 - 12.0 % [facility] NEUTROPHILS ABSOLUTE AUTO 4.7 [facility] Neutrophils/100 WBC (Bld) 66.5 % 43.0 - 75.0 % [facility] Platelet mean volume (Bld) [Entitic vol] 11.9 fL 9.5 - 13.5 fL [facility] TBH EO # 0 [facility] PLT 189 [facility] TB RBC 3.07 Low [facility]H WBC 7.1 [facility] ALL CBC WITH AUTO DIFFon BASOPHILS ABSOLUTE AUTO 0 [facility] Basophils/100 WBC (Bld) 0.6 % 0.2 - 2.0 % [facility] Eosinophils/100 WBC (Bld) 0.9 % 0.9 - 7.0 % [facility] Erythrocyte distribution width (RBC) [Ratio] 15.5 % High 11.0 - 15.0 % [facility] Hematocrit (Bld) [Volume fraction] 29.8 % Low 36.0 - 48.0 % [facility] Hemoglobin (Bld) [Mass/Vol] 9.5 g/dL Low 12.0 - 16.0 g/dL [facility] IMMATURE GRANULOCYTES ABS AUTO 0.05 High [facility] Immature granulocytes/100 WBC (Bld) 0.7 % High 0.0 - 0.5 % [facility] Interpretation and review of laboratory results Abnormal [facility] LYMPHOCYTES ABSOLUTE AUTO 1.8 [facility] Lymphocytes/100 WBC (Bld) 26.4 % 20.5 - 60.0 % [facility] MCH (RBC) [Entitic mass] 30 pg 26.7 - 34.0 pg [facility] MCHC (RBC) [Mass/Vol] 31.9 g/dL 29.9 - 35.2 g/dL [facility] MCV (RBC) [Entitic vol] 94 fL 81.0 - 99.0 fL [facility] MONOCYTES ABSOLUTE AUTO 0.4 [facility] Monocytes/100 WBC (Bld) 6.5 % 1.7 - 12.0 % [facility] NEUTROPHILS ABSOLUTE AUTO 4.4 [facility] Neutrophils/100 WBC (Bld) 64.9 % 43.0 - 75.0 % [facility] Platelet mean volume (Bld) [Entitic vol] 11.5 fL 9.5 - 13.5 fL [facility] EO # 0.1 [facility] PLT 201 [facility] RBC 3.17 Low [facility] WBC 6.8 [facility] Urinalysis macro (dipstick) panel (U)on 05-12-2024 Bilirubin, UA Negative Negative - 4(70) +++ mg/dL [facility] Blood, UA Negative Negative - 50 Enrrique/mcL [facility] Clarity, UA Cloudy [facility] Color, UA Nash [facility] Glucose, UA Negative Negative - 2000(110) ++++ mg/dL [facility] Interpretation and review of laboratory results Abnormal [facility] Ketones, UA Positive Negative - 160(16) ++++ mg/dL [facility] Comment on above: 15 Leukocytes, UA Negative Negative - 500+++ Cam/mcL [facility] Nitrite, UA Negative Negative - Positive [facility] pH, UA 6 5 - 9 [facility] Protein, UA Positive Negative - 1999(20) ++++ mg/dL [facility] Comment on above: 30 Spec Grav, UA 1.025 1 - 1.03 [facility] Urobilinogen, UA 1.0 0.2 - 12 mg/dL [facility] ALL CBC WITH AUTO DIFFon BASOPHILS ABSOLUTE AUTO 0 [facility] Basophils/100 WBC (Bld) 0.4 % 0.2 - 2.0 % [facility] Eosinophils/100 WBC (Bld) 0.5 % Low 0.9 - 7.0 % [facility] Erythrocyte distribution width (RBC) [Ratio] 15 % 11.0 - 15.0 % [facility] Hematocrit (Bld) [Volume fraction] 29.6 % Low 36.0 - 48.0 % [facility] Hemoglobin (Bld) [Mass/Vol] 9.7 g/dL Low 12.0 - 16.0 g/dL [facility] IMMATURE GRANULOCYTES ABS AUTO 0.02 [facility] Immature granulocytes/100 WBC (Bld) 0.3 % 0.0 - 0.5 % [facility] Interpretation and review of laboratory results Abnormal [facility] LYMPHOCYTES ABSOLUTE AUTO 1.8 [facility] Lymphocytes/100 WBC (Bld) 22.3 % 20.5 - 60.0 % [facility] MCH (RBC) [Entitic mass] 31.4 pg 26.7 - 34.0 pg [facility] MCHC (RBC) [Mass/Vol] 32.8 g/dL 29.9 - 35.2 g/dL [facility] MCV (RBC) [Entitic vol] 95.8 fL 81.0 - 99.0 fL [facility] MONOCYTES ABSOLUTE AUTO 0.5 [facility] Monocytes/100 WBC (Bld) 6.3 % 1.7 - 12.0 % [facility] NEUTROPHILS ABSOLUTE AUTO 5.6 [facility] Neutrophils/100 WBC (Bld) 70.2 % 43.0 - 75.0 % [facility] Platelet mean volume (Bld) [Entitic vol] 11.6 fL 9.5 - 13.5 fL [facility] TBH EO # 0 [facility] TBH PLT 181 [facility] RBC 3.09 Low [facility] WBC 7.9 [facility] GLUCOSE TOLERANCE 3 HOURon 0 05-08-2024 GLUCOSE TOLERANCE 3 HOUR mg/dL [facility] Comment on above: GLU FAST 90 (<95) Co l: 05/08/24 0806 GLU 1HR 159 (<180) Col: 05/08/24 0913 GLU 2HR 142 (<155) Col: 05/08/24 1013 GLU 3HR 117 (<140) Col: 05/08/24 1113 [facility] Ultrasound - OfficeOrdered B y: Rachelle Arredondo on 05-04-2024 Radiology Study observation (narrative) [facility] Urinalysis macro (dipstick) panel (U)on 04-26-2024 Bilirubin, UA Negative Negative - 4(70) +++ mg/dL [facility] Blood, UA Negative Negative - 50 Enrrique/mcL [facility] Clarity, UA Clear [facility] Color, UA Yellow [facility] Glucose, UA Negative Negative - 1999(110) ++++ mg/dL [facility] Interpretation and review of laboratory results Abnormal [facility] Ketones, UA Positive Negative - 160(16) ++++ mg/dL [facility] Leukocytes, UA Negative Negative - 500+++ Cam/mcL [facility] Nitrite, UA Negative Negative - Positive [facility] pH, UA 6.5 5 - 9 [facility] Protein, UA Negative Negative - 1999(20) ++++ mg/dL [facility] Spec Grav, UA 1.03 1 - 1.03 [facility] Urobilinogen, UA 1.0 0.2 - 12 mg/dL [facility] US OB LIMITED 1+ FETUSESon 0 04-21-2024 [...] II, MD, PHD at 22-Apr-2024 09:07:11 AM [facility] Normal Not Available Comment on above: Order Comment: US OB INCOMPLETE ANATOMY Estimated Date of Delivery: 08/11/24 Gestational Age as of 03/25/2024: 20w1d CBC AND AUTO DIFFon 04-20-19 ABSOLUTE BASOPHIL 0.0 X10E9/L Normal 0.0-0.2 [facility] Comment on above: Performed By: #### 2 276-4, CBCA, FEPR #### [facility] ([id number]) [address], [address] [place] [address] ABSOLUTE NEUTROPHIL 5.2 X10E9/L Normal 1.5-6.6 [facility] Comment on above: Performed By: #### 2 276-4, CBCA, FEPR #### [facility] ([id number]) [address], [address] [place] [address] Basophils/100 WBC (Bld) 0.4 % Normal [facility] Comment on above: Performed By: #### 2 276-4, CBCA, FEPR #### [facility] ([id number]) [address], [facility] [address] [place] [address] Eosinophils (Bld) [#/Vol] 0.0 10*3/uL Normal 0.0-0.4 [facility] Comment on above: Performed By: #### 2 276-4, CBCA, FEPR #### [facility] ([id number]) [address] [address] [place] [address] Eosinophils/100 WBC (Bld) 0.6 % Normal [facility] Comment on above: Performed By: #### 2 276-4, CBCA, FEPR #### [facility] ([id number]) [address] [address] [place] [address] Erythrocyte distribution width (RBC) [Ratio] 14.6 % Normal 11.5-15.0 [facility] Comment on above: Performed By: #### 2 276-4, CBCA, FEPR #### [facility] ([id number]) [address] [address] [place] [address] Hematocrit (Bld) [Volume fraction] 32.4 % Low 35-47 [facility] Comment on above: Performed By: #### 2 276-4, CBCA, FEPR #### [facility] ([id number]) [address] [address] [place] [address] Hemoglobin (Bld) [Mass/Vol] 10.7 g/dL Low 11.7-15.5 [facility] Comment on above: Performed By: #### 2 276-4, CBCA, FEPR #### [facility] ([id number]) [address] [address] [place] [address] Lymphocytes (Bld) [#/Vol] 1.9 10*3/uL Normal 1.0-3.5 [facility] Comment on above: Performed By: #### 2 276-4, CBCA, FEPR #### [facility] ([id number]) [address], [address] [place] [address] Lymphocytes/100 WBC (Bld) 24.8 % Normal [facility] Comment on above: Performed By: #### 2 276-4, CBCA, FEPR #### [facility] ([id number]) [address] [facility] [address] [place] [address] MCH (RBC) [Entitic mass] 30.9 pg Normal 27-34 [facility] Comment on above: Performed By: #### 2 276-4, CBCA, FEPR #### [facility] ([id number]) [address] [facility] [address] [place] [address] MCHC (RBC) [Mass/Vol] 33.0 g/dL Normal 32-36 [facility] Comment on above: Performed By: #### 2 276-4, CBCA, FEPR #### [facility] ([id number]) [address], [facility] [address] [place] [address] MCV (RBC) [Entitic vol] 94 fL Normal 80-100 [facility] Comment on above: Performed By: #### 2 276-4, CBCA, FEPR #### [facility] ([id number]) [address] [place] [address] Monocytes (Bld) [#/Vol] 0.5 10*3/uL Normal 0-0.9 [facility] Comment on above: Performed By: #### 2 276-4, CBCA, FEPR #### [facility] ([id number]) [address], [address] [place] [address] Monocytes/100 WBC (Bld) 6.5 % Normal [facility] Comment on above: Performed By: #### 2 276-4, CBCA, FEPR #### [facility] ([id number]) [address], [address] [place] [address] Neutrophils/100 WBC (Bld) 67.7 % Normal [facility] Comment on above: Performed By: #### 2 276-4, CBCA, FEPR #### [facility] ([id number]) [address] [place] [address] Platelet mean volume (Bld) [Entitic vol] 10.8 fL Normal 7-12 [facility] Comment on above: Performed By: #### 2 276-4, CBCA, FEPR #### [facility] ([id number]) [address] [facility] [address] [place] [address] Platelets (Bld) [#/Vol] 162 10*3/uL Normal 150-450 [facility] Comment on above: Performed By: #### 2 276-4, CBCA, FEPR #### [facility] ([id number]) [address], [facility] [address] [place] [address] RBC COUNT 3.46 X10E12/L Low 3.80-5.20 [facility] Comment on above: Performed By: #### 2 276-4, CBCA, FEPR #### [facility] ([id number]) [address] [facility] [address] [place] [address] WBC (Bld) [#/Vol] 7.7 10*3/uL Normal 4.0-11.0 [facility] Comment on above: Performed By: #### 2 276-4, CBCA, FEPR #### [facility] ([id number]) [address] [place] [address] FERRITINon 04-19-2024 Ferritin [Mass/Vol] 9 ng/mL Low 11-307 [facility] Comment on above: Performed By: #### 2 276-4, CBCA, FEPR #### [facility] ([id number]) [address], [address] [place] [address] IRON PROFILEon 04-19-2024 Iron [Mass/Vol] 78 ug/dL Normal 50-170 [facility] Comment on above: Performed By: #### 2 276-4, CBCA, FEPR #### [facility] ([id number]) [address], [address] [place] [address] IRON BINDING 475 ug/dL High 250-425 [facility] Comment on above: Performed By: #### 2 276-4, CBCA, FEPR #### [facility] ([id number]) [address], [address] [place] [address] IRON SATURATION 16 % SATURATION Normal 15-50 [facility] Comment on above: Performed By: #### 2 276-4, CBCA, FEPR #### [facility] ([id number]) [address], [address] [place] [address] THIOPURINE METABOLITESon 6 METHYLMERCAPTOPRNE <475 Normal < or = 5700 [facility] Comment on above: Result Comment: NOTE Result not quantifiable; below the limit of quantitation. Decreased risk of hepatotoxicity. ADDITIONAL INFORMATION Testing performed by Liquid Chromatography-Tandem Mass Spectrometry (LC-MS/MS) This test was developed and its performance characteristics determined by [facility] in a manner consistent with CLIA requirements. This test has not been cleared or approved by the U.S. Food and Drug Administration. Test Performed by: Formerly Named [facility] [address] [place] [address] Resident Assistant Cna: Celi Fernandez Ph.D.; CLIA# [id number] Performed By: #### 2 276-4, CBCA, FEPR #### [facility] ([id number]) [address] [place] [address] 6 THIOGUANINE 101 pmol/8x10(8)RBC Low 235 - 450 Pr [facility] Comment on above: Result Comment: NOTE Decreased possibility of response; suboptimal dosing or noncompliance. Performed By: #### 2 276-4, CBCA, FEPR #### [facility] ([id number]) [address] [facility], [address] [place] [address] VITAMIN B12on 04-19-2024 Cobalamin (Vitamin B12) [Mass/Vol] 143 pg/mL Low 180-914 [facility] Comment on above: Performed By: #### 2 276-4, CBCA, FEPR #### [facility] ([id number]) [address], [address] [place] [address] Vitamin D+Metabolites [Mass/ Vol]on 04-19-2024 VITAMIN D 25 HYD TOT 12.0 ng/mL Low 30-100 [facility] Comment on above: Result Comment: Vitamin D status 25 [place] Vitamin D Deficiency <20 ng/mL Insufficiency 20-29 ng/mL Sufficiency 30-100 ng/mL Toxicity >100 ng/mL NOTE: A pediatric reference range has not been established by the tag maker of this kit. The [place] [employer] recommends a Vitamin D level of = or >20ng/mL in infants and children. Performed By: #### 2 276-4, CBCA, FEPR #### [facility] ([id number]) [address] [facility], [address] [place] [address] No Panel Informationon 03-24 Radiology Study observation (narrative) [facility] US OB ANATOMYon 03-24-2024 [facility] [address] [place] [address] Ultrasound Report Signed Patient: JUAN LUIS STOREY MR#: [id number] : 1990 Acct:[id number] Age/Sex: 33 / F ADM Date: 03/24/24 Loc: US Attending Dr: Parish Valdez D.O. Ordering Physician: Parish Valdez D.O. Date of Service: 03/24/24 Procedure(s): US OB anatomy Accession Number(s): [id number] cc: Parish Valdez D.O.; Hilary Aviles NP [address] [address] Patient Name: JUAN LUIS STOREY MRN: [facility]:[id number] date: 1990 Sex: F Assigned Patient Location: US Current Patient Location: US Accession/Order Number: [id number] Exam Date: 03/24/2024 10:45 Report Date: 03/24/2024 [...] Signed By: 03/24/24 1139 DD/ 1136 TD/TT: Parts Consultant: [facility] Radiology, Radiologaditya duncan MD - 03/24/2024 [place] [address] Ultrasound Report Signed Patient: JUAN LUIS STOREY MR#: [id number] : 1990 Acct:[id number] Age/Sex: 33 / F ADM Date: 03/24/24 Loc: US Attending Dr: Parish Valdez D.O. Ordering Physician: Parish Valdez D.O. Date of Service: 03/24/24 Procedure(s): US OB anatomy Accession Number(s): [id number] cc: Parish Valdez D.O.; Hilary Aviles NP The [place] [address] Patient Name: JUAN LUIS STOREY MRN: [facility]:[id number] date: 1990 Sex: F Assigned Patient Location: US Current Patient Location: US Accession/Order Number: [id number] Exam Date: 03/24/2024 10:45 Report Date: 03/24/2024 [...] Signed By: 03/24/24 1139 DD/ 1136 TD/TT: Parts Consultant: [facility] US OB ANATOMYOrdered By: Sergio iologbruna Radiology on 03-24-2024 [facility] Work Phone: US OB CERVICAL LENGTHon 03-13 [place] [address] Ultrasound Report Signed Patient: JUAN LUIS STOREY MR#: [id number] : 1990 Acct:[id number] Age/Sex: 33 / F ADM Date: 03/24/24 Loc: US Attending Dr: Parish Valdez D.O. Ordering Physician: Parish Valdez D.O. Date of Service: 03/24/24 Procedure(s): US OB cervical length Accession Number(s): [id number] cc: Parish Valdez D.O.; Hilary Aviles NP [place] [id number] Patient Name: JUAN LUIS STOREY MRN: [facility]:[id number] date: 1990 Sex: F Assigned Patient Location: US Current Patient Location: US Accession/Order Number: [id number] Exam Date: 03/24/2024 10:45 Report Date: 03/24/2024 [...] Signed By: 03/24/24 1138 DD/ 1136 TD/TT: Parts Consultant: [facility] Radiology, Radiologi MD perla - 03/24/[address] [address] Ultrasound Report Signed Patient: JUAN LUIS STOREY MR#: [id number] : 1990 Acct:[id number] Age/Sex: 33 / F ADM Date: 03/24/24 Loc: US Attending Dr: Parish Valdez D.O. Ordering Physician: Parish Valdez D.O. Date of Service: 03/24/24 Procedure(s): US OB cervical length Accession Number(s): [id number] cc: Parish Valdez D.O.; Hilary Aviles NP The [address] [address] Patient Name: JUAN LUIS STOREY MRN: [id number]:[id number] date: 1990 Sex: F Assigned Patient Location: US Current Patient Location: US Accession/Order Number: [id number] Exam Date: 03/24/2024 10:45 Report Date: 03/24/2024 [...] Signed By: 03/24/24 1138 DD/ 1136 TD/TT: Parts Consultant: [facility] US OB CERVICAL LENGTHOrdered By: Radiologist Radiology on 03-24-2024 [facility] Work Phone: Ultrasound - OfficeOrdered B y: Rachelle Maria Elena on 03-24-2024 [facility] Unlisted Lab Teston 03-24-19 [facility] RECURRENT VAGINITIS (HTRX)on 03-18-2024 ATOPOBIUM VAGINAE 0 [facility] ATOPOBIUM VAGINAE Not detected [facility] BVAB 2,3 (BACTERIAL VAGINOSIS ASSOCIATED BACTERIA 2, 3); MOBILUNCUS SPP 0 [facility] BVAB 2,3 (BACTERIAL VAGINOSIS ASSOCIATED [...] [facility] US OB CERVICAL LENGTHon 02-12 [place] [address] Ultrasound Report Signed Patient: JUAN LUIS STOREY MR#: [id number] : 1990 Acct:[id number] Age/Sex: 33 / F ADM Date: 03/11/24 Loc: US Attending Dr: Parish Valdez D.O. Ordering Physician: Parish Valedz D.O. Date of Service: 03/11/24 Procedure(s): US OB cervical length Accession Number(s): [id number] cc: Parish Valdez D.O.; Hilary Aviles NP The [place] [id number] Patient Name: JUAN LUIS STOREY MRN: [facility]:[id number] date: 1990 Sex: F Assigned Patient Location: US Current Patient Location: US Accession/Order Number: [id number] Exam Date: 03/11/2024 10:15 Report Date: 03/11/2024 [...] Signed By: 03/11/24 1056 DD/ 1053 TD/TT: Parts Consultant: [facility] Radiology, Radiologi MD perla - 03/11/2024 The [place] [id number] Ultrasound Report Signed Patient: JUAN LUIS STOREY MR#: [id number] : 1990 Acct:[id number] Age/Sex: 33 / F ADM Date: 03/11/24 Loc: US Attending Dr: Parish Valdez D.O. Ordering Physician: Parish Valdez D.O. Date of Service: 03/11/24 Procedure(s): US OB cervical length Accession Number(s): [id number] cc: Parish Valdez D.O.; Hilary Aviles NP [place] [address] Patient Name: JUAN LUIS STOREY MRN: [id number] date: 1990 Sex: F Assigned Patient Location: US Current Patient Location: US Accession/Order Number: [id number] Exam Date: 03/11/2024 10:15 Report Date: 03/11/2024 [...] Signed By: 03/11/24 1056 DD/ 1053 TD/TT: Parts Consultant: [facility] Radiology Study observation (narrative) [facility] US OB CERVICAL LENGTHOrdered By: Radiologist Radiology on 03-11-2024 [facility] Work Phone: Urinalysis macro (dipstick) panel (U)on 02-18-2024 Bilirubin, UA Negative Negative - 4(70) +++ mg/dL [facility] Blood, UA Positive Negative - 50 Nerrique/mcL [facility] Comment on above: trace Clarity, UA Clear [facility] Color, UA Yellow [facility] Glucose, UA Negative Negative - 1999(110) ++++ mg/dL [facility] Interpretation and review of laboratory results Abnormal [facility] Ketones, UA Positive Negative - 160(16) ++++ mg/dL [facility] Comment on above: trace Leukocytes, UA Trace Negative - 500+++ Cam/mcL [facility] Nitrite, UA Negative Negative - Positive [facility] pH, UA 7 5 - 9 [facility] Protein, UA Positive Negative - 1999(20) ++++ mg/dL [facility] Comment on above: 30 Spec Grav, UA 1.03 1 - 1.03 [facility] Urobilinogen, UA 1.0 0.2 - 12 mg/dL [facility] ALL CBC WITH AUTO DIFFon BASOPHILS ABSOLUTE AUTO 0 [facility] Basophils/100 WBC (Bld) 0.2 % 0.2 - 2.0 % [facility] Eosinophils/100 WBC (Bld) 0.9 % 0.9 - 7.0 % [facility] Erythrocyte distribution width (RBC) [Ratio] 12.5 % 11.0 - 15.0 % [facility] Hematocrit (Bld) [Volume fraction] 35.3 % Low 36.0 - 48.0 % [facility] Hemoglobin (Bld) [Mass/Vol] 11.8 g/dL Low 12.0 - 16.0 g/dL [facility] IMMATURE GRANULOCYTES ABS AUTO 0.03 [facility] Immature granulocytes/100 WBC (Bld) 0.4 % 0.0 - 0.5 % [facility] Interpretation and review of laboratory results Abnormal [facility] LYMPHOCYTES ABSOLUTE AUTO 2.4 [facility] Lymphocytes/100 WBC (Bld) 29.2 % 20.5 - 60.0 % [facility] MCH (RBC) [Entitic mass] 32 pg 26.7 - 34.0 pg [facility] MCHC (RBC) [Mass/Vol] 33.4 g/dL 29.9 - 35.2 g/dL [facility] MCV (RBC) [Entitic vol] 95.7 fL 81.0 - 99.0 fL [facility] MONOCYTES ABSOLUTE AUTO 0.5 [facility] Monocytes/100 WBC (Bld) 6.5 % 1.7 - 12.0 % [facility] NEUTROPHILS ABSOLUTE AUTO 5.1 [facility] Neutrophils/100 WBC (Bld) 62.8 % 43.0 - 75.0 % [facility] Platelet mean volume (Bld) [Entitic vol] 12 fL 9.5 - 13.5 fL [facility] TBH EO # 0.1 [facility] TBH PLT 194 [facility] TB RBC 3.69 Low [facility] TB WBC 8.2 [facility] CLINISYNC No Panel Informationon 02-13 [facility] Rubella IGG immune statuson 02-14-2024 Rubella immune IgG immune [facility] Syphilis Total(Unknown Syphi lis Status)Ordered By: Rachelle Arredondo on 02-14-2024 Syphilis Non-Reactive [facility] BASIC METABOLIC PANLon 01-25 Anion gap [Moles/Vol] 9 mmol/L Normal 5-15 [facility] Comment on above: Performed By: #### C BREANNA, 2131-10, LIVR, BMP, 1987-06, 81467-4, 40059-3 #### [facility] ([id number]) [address] [place] [address] #### THMET #### [facility] ([id number]) [address] [place] [address], Calcium [Mass/Vol] 8.6 mg/dL Normal 8.5-10.5 [facility] Comment on above: Performed By: #### C BREANNA, 2131-10, LIVR, BMP, 1987-06, 24587-9, 79571-1 #### [facility] ([id number]) [address] [place] [address], [facility] [address] [place] [address] #### THMET #### [facility] ([id number]) [address] [place] [address], Chloride [Moles/Vol] 104 mmol/L Normal 98-109 [facility] Comment on above: Performed By: #### C BREANNA, 2131-10, LIVR, BMP, 1987-06, 54436-7, 77261-6 #### [facility] ([id number]) [address] [place] [address], [address] [place] [address] #### THMET #### [facility] ([id number]) [facility] [facility], CO2 [Moles/Vol] 21 mmol/L Low 22-32 [facility] Comment on above: Performed By: #### C BC, 2131-10, LIVR, BMP, 1987-06, 69857-7, 47290-1 #### [facility] ([id number]) [address] [place] [address], [address] [address] #### THMET #### [facility] ([id number]) [address] [place] [address], Creatinine [Mass/Vol] 0.56 mg/dL Normal 0.40-1.00 [facility] Comment on above: Result Comment: METH OD TRACEABLE TO IDMS STANDARD Performed By: #### C BREANNA, 2131-10, LIVR, BMP, 1987-06, 40697-6, 77824-6 #### [facility] ([id number]) [address] [place] [address], [address] [address] #### THMET #### [facility] ([id number]) [address] [place] [address], eGFR (CKD-EPI) NON-RACE DEPENDENT >90 Normal >59 [facility] Comment on above: Result Comment: Reported eGFR is based on the CKD-EPI 2020 equation that does not use a race coefficient. Performed By: #### C BC, 2131-10, LIVR, BMP, 1987-06, 05662-9, 14084-4 #### [facility] ([id number]) [address] [place] [address], [address] [place] [address] #### THMET #### [facility] ([id number]) [address] [place] [address], Glucose [Mass/Vol] 73 mg/dL Normal 65-99 [facility] Comment on above: Performed By: #### Elizabeth CARLOS, 2131-10, LIVR, BMP, 1987-06, 34515-9, 30138-8 #### [facility] ([id number]) [address] [facility], [address] [place] [address] #### THMET #### [facility] ([id number]) [address] [place] [address], Potassium [Moles/Vol] 3.8 mmol/L Normal 3.5-5.0 [facility] Comment on above: Performed By: #### Elizabeth CARLOS, 2131-10, LIVR, BMP, 1987-06, 63668-2, 12919-4 #### [facility] ([id number]) [address] [facility], [address] [place] [address] #### THMET #### [facility] ([id number]) [address] [place] [address], Sodium [Moles/Vol] 134 mmol/L Normal 134-146 [facility] Comment on above: Performed By: #### Elizabeth CARLOS, 2131-10, LIVR, BMP, 1987-06, 70652-8, 28277-1 #### [facility] ([id number]) [address] [facility], [address] [place] [address] #### THMET #### [facility] ([id number]) [address] [place] [address], Urea nitrogen [Mass/Vol] 6 mg/dL Normal 5-23 [facility] Comment on above: Performed By: #### Elizabeth CARLOS, 2131-10, LIVR, BMP, 1987-06, 64555-3, 60841-0 #### [facility] ([id number]) [address] [facility], [address] [place] [address] #### THMET #### [facility] ([id number]) [address] [facility], COMPLETE BLOOD COUNTon 01-25 Erythrocyte distribution width (RBC) [Ratio] 13.7 % Normal 11.5-15.0 [facility] Comment on above: Performed By: #### C BERANNA, 2131-10, LIVR, BMP, 1987-06, 21342-1, 80132-4 #### [facility] ([id number]) [address] [place] [address], [facility] [address] [place] [address] #### THMET #### [facility] ([id number]) [address] [place] [address], Hematocrit (Bld) [Volume fraction] 38.5 % Normal 35-47 [facility] Comment on above: Performed By: #### Elizabeth CARLOS, 2131-10, LIVR, BMP, 1987-06, 18816-4, 85205-7 #### [facility] ([id number]) [address] [place] [address], [place] [address] #### THMET #### [facility] ([id number]) [address] [place] [address], Hemoglobin (Bld) [Mass/Vol] 12.8 g/dL Normal 11.7-15.5 [facility] Comment on above: Performed By: #### Elizabeth CARLOS, 2131-10, LIVR, BMP, 1987-06, 66058-8, 15369-1 #### [facility] ([id number]) [address] [place] [address], [facility] [address] [place] [address] #### THMET #### [facility] ([id number]) [address] [place] [address], MCH (RBC) [Entitic mass] 32.5 pg Normal 27-34 [facility] Comment on above: Performed By: #### Elizabeth CARLOS, 2131-10, LIVR, BMP, 1987-06, 59751-5, 48154-1 #### [facility] ([id number]) [address] [place] [address], [address] [place] [address] #### THMET #### [facility] ([id number]) [address] [facility], MCHC (RBC) [Mass/Vol] 33.3 g/dL Normal 32-36 [facility] Comment on above: Performed By: #### Elizabeth CARLOS, 2131-10, LIVR, BMP, 1987-06, 06045-0, 80796-5 #### [facility] ([id number]) [address] [place] [address], [address] [place] [address] #### THMET #### [facility] ([id number]) [address] [place] [address], MCV (RBC) [Entitic vol] 98 fL Normal 80-100 [facility] Comment on above: Performed By: #### Elizabeth CARLOS, 2131-10, LIVR, BMP, 1987-06, 00305-3, 16578-8 #### [facility] ([id number]) [address] [place] [address], [address] [place] [address] #### THMET #### [facility] ([id number]) [address] [place] [address], Platelet mean volume (Bld) [Entitic vol] 11.2 fL Normal 7-12 [facility] Comment on above: Performed By: #### Elizabeth CARLOS, 2131-10, LIVR, BMP, 1987-06, 94262-6, 63967-6 #### [facility] ([id number]) [address] [place] [address], [address] [place] [address] #### THMET #### [facility] ([id number]) [address] [place] [address], Platelets (Bld) [#/Vol] 108 10*3/uL Low 150-450 [facility] Comment on above: Performed By: #### Elizabeth CARLOS, 2131-10, LIVR, BMP, 1987-06, 27430-6, 01259-1 #### [facility] ([id number]) [address] [place] [address], [address] [place] [address] #### THMET #### [facility] ([id number]) [address] [facility], RBC COUNT 3.95 X10E12/L Normal 3.80-5.20 [facility] Comment on above: Performed By: #### C BC, 2131-10, LIVR, BMP, 1987-06, 61642-0, 21694-8 #### [facility] ([id number]) [address] [place] [address], [place] [address] #### THMET #### [facility] ([id number]) [address] [place] [address], WBC (Bld) [#/Vol] 7.2 10*3/uL Normal 4.0-11.0 [facility] Comment on above: Performed By: #### C BC, 2131-10, LIVR, BMP, 1987-06, 70371-2, 56104-5 #### [facility] ([id number]) [address] [place] [address], [address] [place] [address] #### THMET #### [facility] ([id number]) [address] [place] [address], CRP [Mass/Vol]on 01-26-2024 C REACTIVE PROTEIN 0.7 mg/dL Normal 0.000-0.744 [facility] Comment on above: Performed By: #### C BC, 2131-10, LIVR, BMP, 1987-06, 96395-9, 02022-3 #### [facility] ([id number]) [address] [place] [address], [address] [place], [place] [address] #### THMET #### [facility] ([id number]) [address] [place] [address], ESR Photometric method (Bld) [Velocity]on 01-26-2024 ESR, ERYTHROCYTE SEDIMENTATION RATE 1 mm/h Normal 0-20 [facility] Comment on above: Performed By: #### Elizabeth CARLOS, 2131-10, LIVR, BMP, 1987-06, 70588-6, 66640-8 #### [facility] ([id number]) [address] [facility], [address] [place] [address] #### THMET #### [facility] ([id number]) [address] [facility], LIVER PANELon 01-26-2024 Albumin [Mass/Vol] 3.7 g/dL Normal 3.2-5.3 [facility] Comment on above: Performed By: #### Elizabeth CARLOS, 2131-10, LIVR, BMP, 1987-06, 95025-5, 95661-6 #### [facility] ([id number]) [address] [facility], [address] [place], [place] [address] #### THMET #### [facility] ([id number]) [address] [place] [address], ALP [Catalytic activity/Vol] 29 U/L Low 39-130 [facility] Comment on above: Performed By: #### Elizabeth CARLOS, 2131-10, LIVR, BMP, 1987-06, 20836-5, 43690-9 #### [facility] ([id number]) [address], [address] [place] [address] #### THMET #### [facility] ([id number]) [address] [facility], ALT [Catalytic activity/Vol] 8 U/L Normal 0-31 [facility] Comment on above: Performed By: #### Elizabeth CARLOS, 2131-10, LIVR, BMP, 1987-06, 70970-6, 61214-7 #### [facility] ([id number]) [address] [facility], [address] [place] [address] #### THMET #### [facility] ([id number]) [address] [facility], AST [Catalytic activity/Vol] 19 U/L Normal 0-41 [facility] Comment on above: Performed By: #### Elizabeth CARLOS, 2131-10, LIVR, BMP, 1987-06, 15405-1, 79889-7 #### [facility] ([id number]) [address] [place] [address], [address] [place] [address] #### THMET #### [facility] ([id number]) [address] [place] [address], Bilirubin [Mass/Vol] 0.4 mg/dL Normal 0.3-1.2 [facility] Comment on above: Performed By: #### C BREANNA, 2131-10, LIVR, BMP, 1987-06, 83289-1, 96936-2 #### [facility] ([id number]) [address] [place] [address], [address] [place] [address] #### THMET #### [facility] ([id number]) [address] [place] [address], Bilirubin.direct [Mass/Vol] 0.1 mg/dL Normal 0.0-0.4 [facility] Comment on above: Performed By: #### Elizabeth CARLOS, 2131-10, LIVR, BMP, 1987-06, 89713-3, 08148-8 #### [facility] ([id number]) [address] [place] [address], [address] [place] [address] #### THMET #### [facility] ([id number]) [address] [place] [address], Protein [Mass/Vol] 7.0 g/dL Normal 6.0-8.0 [facility] Comment on above: Performed By: #### Elizabeth CARLOS, 2131-10, LIVR, BMP, 1987-06, 72798-9, 89099-1 #### [facility] ([id number]) [address] [place] [address], [address] [place] [address] #### THMET #### [facility] ([id number]) [address] [facility], THIOPURINE METABOLITESon 6 THIOGUANINE Not performed [facility] Comment on above: Result Comment: NOTE Thiopurine Metabolites, B was cancelled on 02/02/2024 at 16:27; Quantity not sufficient to test. Test Performed by: Formerly Named [facility] [address] [place] [address] Resident Assistant Cna: Celi Fernandez Ph.D.; CLIA# [id number] Performed By: #### 2 276-4, CBCA, FEPR #### [facility] ([id number]) [address] [place] [address], [address] [place] [address] VITAMIN B12on 01-26-2024 Cobalamin (Vitamin B12) [Mass/Vol] 239 pg/mL Normal 180-914 [facility] Comment on above: Performed By: #### C BC, 2132-9, LIVR, BMP, 1988-5, 61780-3, 41555-9 #### [facility] ([id number]) [address] [place] [address], [address] [place] [address] #### THMET #### [facility] ([id number]) [address] [place] [address], Vitamin D+Metabolites [Mass/ Vol]on 01-26-2024 VITAMIN D 25 HYD TOT 10.1 ng/mL Low 30-100 [facility] Comment on above: Result Comment: Vitamin D status 25 [place] Vitamin D Deficiency <20 ng/mL Insufficiency 20-29 ng/mL Sufficiency 30-100 ng/mL Toxicity >100 ng/mL NOTE: A pediatric reference range has not been established by the tag maker of this kit. The [place] [employer] recommends a Vitamin D level of = or >20ng/mL in infants and children. Performed By: #### 2 276-4, CBCA, FEPR #### [facility] ([id number]) [address], [address] [place] [address] HCG ( test) Ql (U)o n 01-23-2024 Interpretation and review of laboratory results Abnormal [facility] Preg Test, Ur Positive Negative [facility] Urinalysis macro (dipstick) panel (U)on 01-23-2024 Bilirubin, UA Negative Negative - 4(70) +++ mg/dL [facility] Blood, UA Positive Negative - 50 Enrrique/mcL [facility] Clarity, UA Clear [facility] Color, UA Yellow [facility] Glucose, UA Negative Negative - 2000(110) ++++ mg/dL [facility] Interpretation and review of laboratory results Abnormal [facility] Ketones, UA Positive Negative - 160(16) ++++ mg/dL [facility] Leukocytes, UA Negative Negative - 500+++ Cam/mcL [facility] Nitrite, UA Negative Negative - Positive [facility] pH, UA 7 5 - 9 [facility] Protein, UA Trace Negative - 2000(20) ++++ mg/dL [facility] Spec Grav, UA 1.015 1 - 1.03 [facility] Urobilinogen, UA 1.0 0.2 - 12 mg/dL [facility] KAY FECAL OCCULT BLDon 01-02 Hemoglobin.gastrointe stinal Ql (Stl) Negative Normal NEG [facility] Comment on above: Performed By: #### 2 335-8 #### [facility] ([id number]) [address] [place] [address], [place] [address] CBC AND AUTO DIFFon 12-01-19 ABSOLUTE BASOPHIL 0.0 X10E9/L Normal 0.0-0.2 [facility] Comment on above: Performed By: #### C BCA, FEPR, 2276-4 #### [facility] ([id number]) [address], [address] [place] [address] ABSOLUTE NEUTROPHIL 1.9 X10E9/L Normal 1.5-6.6 [facility] Comment on above: Performed By: #### C CRUZ, FEPR, 2275- #### [facility] ([id number]) [address], [address] [place] [address] Basophils/100 WBC (Bld) 0.5 % Normal [facility] Comment on above: Performed By: #### Elizabeth ARROYO, FEPR, 2275-4 #### [facility] ([id number]) [address], [address] [place] [address] Eosinophils (Bld) [#/Vol] 0.1 10*3/uL Normal 0.0-0.4 [facility] Comment on above: Performed By: #### Elizabeth ARROYO, FEPR, 2275-05 #### [facility] ([id number]) [address], [address] [place] [address] Eosinophils/100 WBC (Bld) 2.3 % Normal [facility] Comment on above: Performed By: #### Elizabeth ARROYO, FEPR, 2275-05 #### [facility] ([id number]) [address], [address] [place] [address] Erythrocyte distribution width (RBC) [Ratio] 13.3 % Normal 11.5-15.0 [facility] Comment on above: Performed By: #### Elizabeth ARROYO, FEPR, 2275-05 #### [facility] ([id number]) [address], [address] [place] [address] Hematocrit (Bld) [Volume fraction] 36.2 % Normal 35-47 [facility] Comment on above: Performed By: #### Elizabeth ARROYO, FEPR, 2275-05 #### [facility] ([id number]) [address], [address] [place] [address] Hemoglobin (Bld) [Mass/Vol] 12.8 g/dL Normal 11.7-15.5 [facility] Comment on above: Performed By: #### C CRUZ FEPR, 2275-05 #### [facility] ([id number]) [address] [address] [place] [address] Lymphocytes (Bld) [#/Vol] 2.3 10*3/uL Normal 1.0-3.5 [facility] Comment on above: Performed By: #### Elizabeth ARROYO, FEPR, 2275-4 #### [facility] ([id number]) [address], [facility] [address] [place] [address] Lymphocytes/100 WBC (Bld) 47.4 % Normal [facility] Comment on above: Performed By: #### Elizabeth ARROYO FEPR, 2275-05 #### [facility] ([id number]) [address], [facility] [address] [place] [address] MCH (RBC) [Entitic mass] 33.2 pg Normal 27-34 [facility] Comment on above: Performed By: #### Elizabeth ARROYO, FEPR, 2275-05 #### [facility] ([id number]) [address], [address] [place] [address] MCHC (RBC) [Mass/Vol] 35.5 g/dL Normal 32-36 [facility] Comment on above: Performed By: #### Elizabeth ARROYO FEPR, 2275-05 #### [facility] ([id number]) [address], [address] [place] [address] MCV (RBC) [Entitic vol] 94 fL Normal 80-100 [facility] Comment on above: Performed By: #### Elizabeth ARROYO, FEPR, 2275-05 #### [facility] ([id number]) [address], [address] [place] [address] Monocytes (Bld) [#/Vol] 0.4 10*3/uL Normal 0-0.9 [facility] Comment on above: Performed By: #### Elizabeth ARROYO, FEPR, 6-4 #### [facility] ([id number]) [address], [address] [place] [address] Monocytes/100 WBC (Bld) 9.1 % Normal [facility] Comment on above: Performed By: #### C BCA, FEPR, 2275-4 #### [facility] ([id number]) [address], [address] [place] [address] Neutrophils/100 WBC (Bld) 40.7 % Normal [facility] Comment on above: Performed By: #### C BCA, FEPR, 2275-4 #### [facility] ([id number]) [address], [address] [place] [address] Platelet mean volume (Bld) [Entitic vol] 11.1 fL Normal 7-12 [facility] Comment on above: Performed By: #### Elizabeth BCA, FEPR, 2275-4 #### [facility] ([id number]) [address], [address] [place] [address] Platelets (Bld) [#/Vol] 187 10*3/uL Normal 150-450 [facility] Comment on above: Performed By: #### Elizabeth BCA, FEPR, 2275-4 #### [facility] ([id number]) [address], [address] [place] [address] RBC COUNT 3.87 X10E12/L Normal 3.80-5.20 [facility] Comment on above: Performed By: #### C BCA, FEPR, 2275-4 #### [facility] ([id number]) [address], [address] [place] [address] WBC (Bld) [#/Vol] 4.8 10*3/uL Normal 4.0-11.0 [facility] Comment on above: Performed By: #### Elizabeth BCA, FEPR, 2275-4 #### [facility] ([id number]) [address], [address] [place] [address] FERRITINon 12-01-2023 Ferritin [Mass/Vol] 12 ng/mL Normal 11-307 [facility] Comment on above: Performed By: #### C BCA, FEPR, 2276-4 #### [facility] ([id number]) [address], [address] [place] [address] IRON PROFILEon 12-01-2023 Iron [Mass/Vol] 74 ug/dL Normal 50-170 [facility] Comment on above: Performed By: #### C BCA, FEPR, 6-4 #### [facility] ([id number]) [address], [facility] [address] [place] [address] IRON BINDING 344 ug/dL Normal 250-425 [facility] Comment on above: Performed By: #### C BCA, FEPR, 6-4 #### [facility] ([id number]) [address] [place] [address] IRON SATURATION 21 % SATURATION Normal 15-50 [facility] Comment on above: Performed By: #### C BCA, FEPR, 6-4 #### [facility] ([id number]) [address] [address] [place] [address] CBC AND AUTO DIFFon 24- 24 ABSOLUTE BASOPHIL 0.0 X10E9/L Normal 0.0-0.2 [facility] Comment on above: Performed By: #### 2 276-4, CBCA, FEPR #### [facility] ([id number]) [address] [facility] [place] [address] ABSOLUTE NEUTROPHIL 2.7 X10E9/L Normal 1.5-6.6 [facility] Comment on above: Performed By: #### 2 276-4, CBCA, FEPR #### [facility] ([id number]) [address], [address] [place] [address] Basophils/100 WBC (Bld) 0.4 % Normal [facility] Comment on above: Performed By: #### 2 276-4, CBCA, FEPR #### [facility] ([id number]) [address] [address] [place] [address] Eosinophils (Bld) [#/Vol] 0.1 10*3/uL Normal 0.0-0.4 [facility] Comment on above: Performed By: #### 2 276-4, CBCA, FEPR #### [facility] ([id number]) [address] [facility] [address] [place] [address] Eosinophils/100 WBC (Bld) 2.0 % Normal [facility] Comment on above: Performed By: #### 2 276-4, CBCA, FEPR #### [facility] ([id number]) [address] [address] Erythrocyte distribution width (RBC) [Ratio] 13.5 % Normal 11.5-15.0 [facility] Comment on above: Performed By: #### 2 276-4, CBCA, FEPR #### [facility] ([id number]) [address] [address] Hematocrit (Bld) [Volume fraction] 35.2 % Normal 35-47 [facility] Comment on above: Performed By: #### 2 276-4, CBCA, FEPR #### [facility] ([id number]) [address] [address] [place] [address] Hemoglobin (Bld) [Mass/Vol] 12.2 g/dL Normal 11.7-15.5 [facility] Comment on above: Performed By: #### 2 276-4, CBCA, FEPR #### [facility] ([id number]) [address] [facility] [address] [place] [address] Lymphocytes (Bld) [#/Vol] 1.9 10*3/uL Normal 1.0-3.5 [facility] Comment on above: Performed By: #### 2 276-4, CBCA, FEPR #### [facility] ([id number]) [address], [address] [place] [address] Lymphocytes/100 WBC (Bld) 36.8 % Normal [facility] Comment on above: Performed By: #### 2 276-4, CBCA, FEPR #### [facility] ([id number]) [address] [place] [address] MCH (RBC) [Entitic mass] 31.9 pg Normal 27-34 [facility] Comment on above: Performed By: #### 2 276-4, CBCA, FEPR #### [facility] ([id number]) [address], [address] [place] [address] MCHC (RBC) [Mass/Vol] 34.5 g/dL Normal 32-36 [facility] Comment on above: Performed By: #### 2 276-4, CBCA, FEPR #### [facility] ([id number]) [address] [place] [address] MCV (RBC) [Entitic vol] 93 fL Normal 80-100 [facility] Comment on above: Performed By: #### 2 276-4, CBCA, FEPR #### [facility] ([id number]) [address] [place] [address] Monocytes (Bld) [#/Vol] 0.4 10*3/uL Normal 0-0.9 [facility] Comment on above: Performed By: #### 2 276-4, CBCA, FEPR #### [facility] ([id number]) [address] [place] [address] Monocytes/100 WBC (Bld) 8.3 % Normal [facility] Comment on above: Performed By: #### 2 276-4, CBCA, FEPR #### [facility] ([id number]) [address] [address] Neutrophils/100 WBC (Bld) 52.5 % Normal [facility] Comment on above: Performed By: #### 2 276-4, CBCA, FEPR #### [facility] ([id number]) [address], [address] [address] Platelet mean volume (Bld) [Entitic vol] 10.7 fL Normal 7-12 [facility] Comment on above: Performed By: #### 2 276-4, CBCA, FEPR #### [facility] ([id number]) [address] [address] Platelets (Bld) [#/Vol] 198 10*3/uL Normal 150-450 [facility] Comment on above: Performed By: #### 2 276-4, CBCA, FEPR #### [facility] ([id number]) [address] [address] RBC COUNT 3.81 X10E12/L Normal 3.80-5.20 [facility] Comment on above: Performed By: #### 2 276-4, CBCA, FEPR #### [facility] ([id number]) [address] [address] WBC (Bld) [#/Vol] 5.2 10*3/uL Normal 4.0-11.0 [facility] Comment on above: Performed By: #### 2 276-4, CBCA, FEPR #### [facility] ([id number]) [address], [facility] [address] [place] [address] FERRITINon 08-04-2023 Ferritin [Mass/Vol] 27 ng/mL Normal 11-307 [facility] Comment on above: Performed By: #### 2 276-4, CBCA, FEPR #### [facility] ([id number]) [address], [address] [place] [address] IRON PROFILEon 08-04-2023 Iron [Mass/Vol] 46 ug/dL Low 50-170 [facility] Comment on above: Performed By: #### 2 276-4, CBCA, FEPR #### [facility] ([id number]) [address] [place] [address] IRON BINDING 273 ug/dL Normal 250-425 [facility] Comment on above: Performed By: #### 2 276-4, CBCA, FEPR #### [facility] ([id number]) [address] [place] [address] IRON SATURATION 17 % SATURATION Normal 15-50 [facility] Comment on above: Performed By: #### 2 276-4, CBCA, FEPR #### [facility] ([id number]) [address] [place] [address] M. tuberculosis stim IFN-g p carrillo (Bld)on 08-04-2023 Mitogen minus Nil Result 9.92 IU/mL Normal [facility] Comment on above: Performed By: #### 7 1775-1 #### [facility] ([id number]) [address] [place] [address], Nil Result 0.08 IU/mL Normal [facility] Comment on above: Result Comment: NOTE Test Performed by: Formerly Named [facility] [address] [place] [address] Resident Assistant Cna: Celi Fernandez Ph.D.; CLIA# [id number] Performed By: #### 7 1775-1 #### [facility] ([id number]) [address] [facility], QuantiFERON-Tb Gold Plus Result Negative Normal Negative [facility] Comment on above: Result Comment: NOTE No [...] IU/mL. Performed By: #### 7 1775-1 #### [employer] ([id number]) [address] [place] [address] TB1 Ag minus Nil Result 0.09 IU/mL Normal [facility] Comment on above: Performed By: #### 7 1775-1 #### [facility] ([id number]) [address] [place] [address], TB2 Ag minus Nil Result 0.01 IU/mL Normal [facility] Comment on above: Performed By: #### 7 1775-1 #### [facility] ([id number]) [address] [place] [address] ACOG PANEL 2: 30 to 65on 05-07-2022 . . Normal [facility] Comment on above: Result Comment: Perf ormed at: WB Performed By: #### 4 [id number] #### [facility] [address] [place] [address] Dr. Bisi Glass Age Gdln ACOG Testing 30-65 Normal [facility] Comment on above: Performed By: #### 4 [id number] #### [facility] [address] [address] [address] Bisi Glass DIAGNOSIS: Comment Normal [facility] Comment on above: Result Comment: NEGA TIVE FOR INTRAEPITHELIAL LESION OR MALIGNANCY. Performed at: WB Performed By: #### 4 [id number] #### [facility] [address] [address] [address] Bisi Glass HPV Aptima Negative Normal Negative [facility] Comment on above: Result Comment: This nucleic acid amplification test detects fourteen high-risk HPV types (16,18,31,33,35,39,45,51,52,56,58,59,66,68) without differentiation. Performed at: =G Performed By: #### 4 [id number] #### [facility] [address] [place] [address] Dr. Bisi Glass HPV Genotype Reflex Comment Normal [facility] Comment on above: Result Comment: Crit eria not met, HPV Genotype not performed. Performed at: WB Performed By: #### 4 [id number] #### [facility] [address] [place] [address] Dr. Bisi Glass Methodology: Comment Normal [facility] Comment on above: Result Comment: This liquid based ThinPrep(R) pap test was screened with the use of an image guided system. Performed at: WB Performed By: #### 4 [id number] #### [facility] [address] [place] [address] Dr. Bisi Glass Note: Comment Normal [facility] Comment on above: Result Comment: The Pap smear is a screening test designed to aid in the detection of premalignant and malignant conditions of the uterine cervix. It is not a diagnostic procedure and should not be used as the sole means of detecting cervical cancer. Both false-positive and false-negative reports do occur. . Performed at: WB Performed By: #### 4 [id number] #### [facility] [address] [place] [address] Dr. Bisi Glass Performed by: Comment Normal [facility] Comment on above: Result Comment: Ngozi Hamlin, Counselor Aid (ASCP) Performed at: WB Performed By: #### 4 [id number] #### [facility] [address] [place] [address] Dr. Bisi Glass Specimen adequacy: Comment Normal [facility] Comment on above: Result Comment: Sati sfactory for evaluation. Endocervical and/or squamous metaplastic cells (endocervical component) are present. Performed at: WB Performed By: #### 4 [id number] #### [facility] [address] [place], [place] [address] Dr. Bisi Glass CNCOon 02-11-2017 CNCO Letter TextNortjulieta [facility] [address] [place], [place] [address]Fnohc: [phone]: [facility] [address] [place]sie[place] [place], [place] [address]Zmdby: [phone]: [facility] [address] [place], [place] [address]Irwac: [phone]: Toll Free: [phone] [email or web address] Raza Roldan M.D., Jhon Mora M.D.Barry Camarena M.D.Samara Hernandez D.O..Bettie Henry M.D. FACROSaju A. Rajan, M.D.February 11, [address] [address]Uiio Ms. Storey,You missed your scheduled appointment on Saturday February 11, 2017. Pleasecall our office to reschedule. If you need to cancel any futureappointments, please call to give us 24 hour notice so that we can offer yourappointment to another patient.Sincerely,Brando Olivera Normal [facility] HOSP 12-03-2016 HOSP Infusion Center (HEMTCL) JUAN LUIS STOREY ([id number]) 1990 FDate Time Provider Scbjgfvzgm48/24/17 1:00 PM CHAIR 1 JOSE PADGETT During your visit today, we recorded the following information about you: Temperature Pulse Respiration Blood pressure 98.9 degrees 76/minute 18/minute 97/64Referring Provider: SAMARA HERNANDEZ [[id number]]Allergies As of Date: 12/03/2016(No Known Allergies)Date Reviewed: 12/03/2016Reviewed by: Kristi (Rn) JAD Partida - Fully AssessedPrimary Visit Diagnosis:Anemia, unspecified type [D64.9]Order(s):TREATMEN T PARAMETER-NOT NEEDED [9990217] Order #: [id number]: 1 HEMONC NURSING COMMUNICATION [9990214] Order #: [id number]: 1 STANDING HEMONC NURSING COMMUNICATION [9990214] Order #: [id number]: 1 STANDING HEMONC NURSING COMMUNICATION [9990214] Order #: [id number]: 1 STANDING HEMONC NURSING COMMUNICATION [9990214] Order #: [id number]: 1 STANDING HEMONC NURSING COMMUNICATION [9990214] Order #: [id number]: 1 STANDING HEMONC NURSING COMMUNICATION [9990214] Order #: [id number]: 1 STANDING [] iron sucrose 200 mg [...] (1 ML) INJECTION* 12/03/2016 Route: INTRAMUSCULAEncounter Number: [id number] Status:Closed by KRISTI PARTIDA on 12/03/[address] [facility] CNOVSPon 11-19-2016 CNOVSP Visit (SP) Office (HEMACL) JUAN LUIS STOREY ([id number]) 1990 FDa Time Provider Lpzzjzzcgx75/10/17 11:00 AM SAMARA HERNANDEZ HEMACL During your visit today, we recorded the following information about you: Temperature Pulse Respiration Blood pressure 97.8 degrees 78/minute 18/minute 96/61 Weight Height 59.6 kg 1.632 mApmartin Berger 11/19/2016 11:15 AM SignedPatient states feeling more fatigue.Samara Hernandez DO 11/23/2016 9:43 AM SignedPATIENT NAME: Ziggynita Kaiden StoreyMRN: [id number] PHYSICIAN: IFTIKHAR RAZO[address] [place] [address] CARE PHYSICIAN: Iftikhar García ImmOTHER PHYSICIANS:CHIEF COMPLAINT: Anemia, unspecified type (primary encounter [...] her second kid in dec 2014.Works a [employer] service.June 04, 2016Eats a bag of ice [...] I answered all questions satisfactorily..Mariano Hernandez D.O.Medical OncologistFair[place], [place]Referring Provider: SAMARA HERNANDEZ [[id number]]Allergies As of Date: 11/19/2016(No Known Allergies)Date Reviewed: [...] by SAMARA HERNANDEZ DO on 11/23/16 Normal [facility] PROGRESSon 11-19-2016 PROGRESS HNO ID: [id number]: Samara HernandezService: (none)Author Type: PhysicianType: Progress NotesFiled: 11/23/2016 9:43 AMNote Text:PATIENT NAME: Juan Luis Richey RaleighMRN: [id number] PHYSICIAN: IFTIKHAR RAZO[address] [place] [address] CARE PHYSICIAN: Iftikhar RazoOTHER PHYSICIANS:CHIEF COMPLAINT: Anemia, [...] her second kid in dec 2014.Works a [employer] service.June 04, 2016Eats a bag of [...] I answered all questions satisfactorily..Mariano Hernandez D.O.Medical OncologistFair[place], [place] Normal [facility] Remote CBCDIF (for [facility] use o nly)on 11-19-2016 Abs Baso 0.02 k/uL Normal <0.11 [facility] Abs Juniata 0.40 k/uL Normal 0.00-0.86 [facility] Abs Neut 3.13 k/uL Normal 1.45-7.50 [facility] Basophils/100 WBC Auto (Bld) 0.4 % Normal [facility] Eosinophils 0.05 10*3/uL Normal <0.46 [facility] Eosinophils/100 leukocytes 0.9 % Normal [facility] Erythrocyte distribution width Auto Ratio (RBC) 13.5 % Normal 11.5-15.0 [facility] Erythrocytes (RBC) 3.87 10*6/uL Low 3.90-5.20 [facility] Hematocrit (HCT) 33.0 % Low 36.0-46.[address] [facility] Hemoglobin mass conc (Bld) 10.5 g/dL Low 11.5-15.5 [facility] Lymphocytes 1.70 10*3/uL Normal 1.00-4.00 [facility] Lymphocytes/100 leukocytes 32.1 % Normal [facility] MCH 27.1 pG Normal 26.0-34.0 [facility] MCHC mass conc (RBC) 31.8 g/dL Normal 30.5-36.0 [facility] MCV 85.3 fL Normal 80.0-100.0 [facility] Monocytes/100 leukocytes 7.5 % Normal [facility] Neutrophils/100 WBC Auto (Bld) 59.1 % Normal [facility] Platelet mean volume (PMV) 11.0 fL Normal 9.0-12.7 [facility] Platelets 288 10*3/uL Normal 150-400 [facility] WBC (Leukocytes) 5.30 10*3/uL Normal 3.70-11.00 [facility] Remote iSTAT BMP (for [facility] us e only)on 11-19-2016 Anion gap 11 mmol/L Normal 0-15 [facility] BUN (urea nitrogen) 12 mg/dL Normal 8-25 [facility] Chloride 105 mmol/L Normal 98-110 [facility] CO2 24 mmol/L Normal 23-32 [facility] Creatinine 0.70 mg/dL Normal 0.70-1.40 [facility] eGFR (non-black) mL/min/{1.73_m2} Normal [facility] Comment on above: Result Comment: eGFR (Estimated [...] Glucose mass conc 79 mg/dL Normal 65-100 [facility] Ionized Calcium, WB 1.14 mmol/L Normal 1.08-1.30 [facility] Comment on above: Result Comment: Plea se note: This value represents ionized calcium not total calcium. Potassium molar conc 4.0 mmol/L Normal 3.5-5.0 [facility] Sodium 140 mmol/L Normal 132-148 [facility] Ferritinon 10-29-2016 Ferritin 19.8 ng/mL Normal 14.7-205.1 [facility] Comment on above: Performed By: #### I CHERYL, FERR ####[facility] [address] [place], [place] [phone] Iron and TIBCon 10-29-2016 Iron 21 ug/dL Low 41-186 [facility] Comment on above: Performed By: #### I CHERYL, FERR ####[facility] [address] [place], [place] [phone] TIBC 331 ug/dL Normal 232-386 [facility] Comment on above: Performed By: #### I CHERYL, FERR ####[facility] [address] [place], [place] [phone] Transferrin Saturatn 6 % Low 15-57 [facility] Comment on above: Performed By: #### I CHERYL, FERR ####[facility] [address] [place], [place] [phone] Remote CBCDIF (for [facility] use o nly)on 10-29-2016 Abs Baso 0.02 k/uL Normal 0.00-0.10 [facility] Abs Juniata 0.42 k/uL Normal 0.00-0.86 [facility] Abs Neut 3.06 k/uL Normal 1.45-7.50 [facility] Basophils/100 WBC Auto (Bld) 0.3 % Normal [facility] Eosinophils 0.11 10*3/uL Normal 0.00-0.45 [facility] Eosinophils/100 leukocytes 1.8 % Normal [facility] Erythrocyte distribution width Auto Ratio (RBC) 12.9 % Normal 11.5-15.0 [facility] Erythrocytes (RBC) 3.90 10*6/uL Normal 3.90-5.20 [facility] Hematocrit (HCT) 34.0 % Low 36.0-46.[address] [facility] Hemoglobin mass conc (Bld) 10.8 g/dL Low 11.5-15.5 [facility] Lymphocytes 2.37 10*3/uL Normal 1.00-4.00 [facility] Lymphocytes/100 leukocytes 39.6 % Normal [facility] MCH 27.7 pG Normal 26.0-34.0 [facility] MCHC mass conc (RBC) 31.8 g/dL Normal 30.5-36.0 [facility] MCV 87.2 fL Normal 80.0-100.0 [facility] Monocytes/100 leukocytes 7.0 % Normal [facility] Neutrophils/100 WBC Auto (Bld) 51.3 % Normal [facility] Platelet mean volume (PMV) 10.8 fL Normal 9.0-12.7 [facility] Platelets 268 10*3/uL Normal 150-400 [facility] WBC (Leukocytes) 5.98 10*3/uL Normal 3.70-11.00 [facility] Remote iSTAT BMP (for [facility] us e only)on 10-29-2016 Anion gap 11 mmol/L Normal 0-15 [facility] BUN (urea nitrogen) 9 mg/dL Normal 8-25 [facility] Chloride 104 mmol/L Normal 98-110 [facility] CO2 26 mmol/L Normal 23-32 [facility] Creatinine 0.70 mg/dL Normal 0.70-1.40 [facility] eGFR (non-black) mL/min/{1.73_m2} Normal [facility] Comment on above: Result Comment: eGFR (Estimated [...] Glucose mass conc 83 mg/dL Normal 65-100 [facility] Ionized Calcium, WB 1.16 mmol/L Normal 1.08-1.30 [facility] Comment on above: Result Comment: Nickonita note: This value represents ionized calcium not total calcium. Potassium molar conc 3.8 mmol/L Normal 3.5-5.0 [facility] Sodium 141 mmol/L Normal 132-148 [facility] Ferritinon 10-01-2016 Ferritin 9.1 ng/mL Low 14.7-205.1 [facility] Comment on above: Performed By: #### I CHERYL, FERR ####[place] [phone] Iron and TIBCon 10-01-2016 Iron 34 ug/dL Low 41-186 [facility] Comment on above: Performed By: #### I CHERYL, FERR ####[address] [phone] TIBC 316 ug/dL Normal 232-386 [facility] Comment on above: Performed By: #### I CHERYL, FERR ####[address] [phone] Transferrin Saturatn 11 % Low 15-57 [facility] Comment on above: Performed By: #### I CHERYL, FERR ####[address] [phone] Remote CBCDIF (for [facility] use o nly)on 10-01-2016 Abs Baso 0.02 k/uL Normal 0.00-0.10 [facility] Abs Juniata 0.53 k/uL Normal 0.00-0.86 [facility] Abs Neut 2.48 k/uL Normal 1.45-7.50 [facility] Basophils/100 WBC Auto (Bld) 0.4 % Normal [facility] Eosinophils 0.09 10*3/uL Normal 0.00-0.45 [facility] Eosinophils/100 leukocytes 1.6 % Normal [facility] Erythrocyte distribution width Auto Ratio (RBC) 13.7 % Normal 11.5-15.0 [facility] Erythrocytes (RBC) 3.85 10*6/uL Low 3.90-5.20 [facility] Hematocrit (HCT) 33.5 % Low 36.0-46.[address] [facility] Hemoglobin mass conc (Bld) 10.7 g/dL Low 11.5-15.5 [facility] Lymphocytes 2.36 10*3/uL Normal 1.00-4.00 [facility] Lymphocytes/100 leukocytes 43.1 % Normal [facility] MCH 27.8 pG Normal 26.0-34.0 [facility] MCHC mass conc (RBC) 31.9 g/dL Normal 30.5-36.0 [facility] MCV 87.0 fL Normal 80.0-100.0 [facility] Monocytes/100 leukocytes 9.7 % Normal [facility] Neutrophils/100 WBC Auto (Bld) 45.2 % Normal [facility] Platelet mean volume (PMV) 10.8 fL Normal 9.0-12.7 [facility] Platelets 282 10*3/uL Normal 150-400 [facility] WBC (Leukocytes) 5.48 10*3/uL Normal 3.70-11.00 [facility] Remote iSTAT BMP (for [facility] us e only)on 10-01-2016 Anion gap 13 mmol/L Normal 0-15 [facility] BUN (urea nitrogen) 14 mg/dL Normal 8-25 [facility] Chloride 102 mmol/L Normal 98-110 [facility] CO2 24 mmol/L Normal 23-32 [facility] Creatinine 0.70 mg/dL Normal 0.70-1.40 [facility] eGFR (non-black) mL/min/{1.73_m2} Normal Cl [facility] Comment on above: Result Comment: eGFR (Estimated [...] Glucose mass conc 93 mg/dL Normal 65-100 [facility] Ionized Calcium, WB 1.14 mmol/L Normal 1.08-1.30 [facility] Comment on above: Result Comment: Nickonita note: This value represents ionized calcium not total calcium. Potassium molar conc 3.7 mmol/L Normal 3.5-5.0 [facility] Sodium 139 mmol/L Normal 132-148 [facility] Remote CBCDIF (for [facility] use o nly)on 08-29-2016 Abs Baso 0.02 k/uL Normal 0.00-0.10 [facility] Abs Juniata 0.52 k/uL Normal 0.00-0.86 [facility] Abs Neut 3.37 k/uL Normal 1.45-7.50 [facility] Basophils/100 WBC Auto (Bld) 0.3 % Normal [facility] Eosinophils 0.10 10*3/uL Normal 0.00-0.45 [facility] Eosinophils/100 leukocytes 1.7 % Normal [facility] Erythrocyte distribution width Auto Ratio (RBC) 18.7 % High 11.5-15.0 [facility] Erythrocytes (RBC) 3.97 10*6/uL Normal 3.90-5.20 [facility] Hematocrit (HCT) 33.0 % Low 36.0-46.[address] [facility] Hemoglobin mass conc (Bld) 10.5 g/dL Low 11.5-15.5 [facility] Lymphocytes 1.92 10*3/uL Normal 1.00-4.00 [facility] Lymphocytes/100 leukocytes 32.4 % Normal [facility] MCH 26.4 pG Normal 26.0-34.0 [facility] MCHC mass conc (RBC) 31.8 g/dL Normal 30.5-36.0 [facility] MCV 83.1 fL Normal 80.0-100.0 [facility] Monocytes/100 leukocytes 8.8 % Normal [facility] Neutrophils/100 WBC Auto (Bld) 56.8 % Normal [facility] Platelet mean volume (PMV) 10.0 fL Normal 9.0-12.7 [facility] Platelets 263 10*3/uL Normal 150-400 [facility] WBC (Leukocytes) 5.93 10*3/uL Normal 3.70-11.00 [facility] Remote iSTAT BMP (for [facility] us e only)on 08-29-2016 Anion gap 12 mmol/L Normal 0-15 [facility] BUN (urea nitrogen) 12 mg/dL Normal 8-25 [facility] Chloride 104 mmol/L Normal 98-110 [facility] CO2 24 mmol/L Normal 23-32 [facility] Creatinine 0.80 mg/dL Normal 0.70-1.40 [facility] [facility] eGFR (non-black) mL/min/{1.73_m2} Normal Cl [facility] Comment on above: Result Comment: eGFR (Estimated [...] Glucose mass conc 91 mg/dL Normal 65-100 [facility] Ionized Calcium, WB 1.14 mmol/L Normal 1.08-1.30 [facility] Comment on above: Result Comment: Plea se note: This value represents ionized calcium not total calcium. Potassium molar conc 3.7 mmol/L Normal 3.5-5.0 [facility] Sodium 140 mmol/L Normal 132-148 [facility] Vital Signs Date Time Vital Sign Value Performing Clinician Facility 05-26-2024 14: Body mass index (BMI) [Ratio] 31.62 kg/m2 [employer] Work Phone: [facility] 05-26-2024 14: Body weight 86.18 kg [employer] Work Phone: [facility] 05-26-2024 14:28-0400 Diastolic blood pressure 82 mm[Hg] Parish Goodmano DO Work Phone: [facility] 05-26-2024 14:28-0400 Systolic blood pressure 130 mm[Hg] Parish Courtney DO Work Phone: [facility] 05-24-2024 12:55-0400 Body temperature 99.3 [degF] [facility] 3 [facility] 05-24-2024 12:55-0400 Diastolic blood pressure 90 mm[Hg] [facility] 3 [facility] 05-24-2024 12:55-0400 Heart rate 105 /min [facility] 3 [facility] 05-24-2024 12:55-0400 Respiratory rate 18 /min [facility] 3 [facility] 05-24-2024 12:55-0400 Systolic blood pressure 128 mm[Hg] [address] 05-24-2024 10:35-0400 Body mass index (BMI) [Ratio] 31.65 kg/m2 [facility] 3 [facility] 05-24-2024 10:35-0400 Body weight 86.[address] 05-12-2024 14:49-0400 Body mass index (BMI) [Ratio] 31.45 kg/m2 Yaquelin BELCHER Work Phone: [facility] 05-12-2024 14:49-0400 Body weight 85.73 kg Yaquelin BELCHER Work Phone: [facility] 05-12-2024 14:49-0400 Diastolic blood pressure 78 mm[Hg] Yaquelin BELCHER Work Phone: [facility] 05-12-2024 14:49-0400 Systolic blood pressure 130 mm[Hg] Yaquelin BELCHER Work Phone: [facility] 05-06-2024 09:41-0400 Body height 165.1 cm Raulito Jimenez DO Work Phone: [facility] 05-06-2024 09:41-0400 Body mass index (BMI) [Ratio] 31.62 kg/m2 Raulito Badik DO Work Phone: [facility] 05-06-2024 09:41-0400 Body temperature 98.2 [degF] Raulito Jimenez DO Work Phone: [facility] 05-06-2024 09:41-0400 Body weight 86.18 kg Raulito Jimenez DO Work Phone: [facility] 05-06-2024 09:41-0400 Diastolic blood pressure 78 mm[Hg] Raultio Jimenez DO Work Phone: [facility] 05-06-2024 09:41-0400 Heart rate 110 /min Raulito Jimenez DO Work Phone: [facility] 05-06-2024 09:41-0400 SaO2% (BldA) [Mass fraction] 98 % Raulito Jimenez DO Work Phone: [facility] 05-06-2024 09:41-0400 Systolic blood pressure 138 mm[Hg] Raulito Jimenez DO Work Phone: [facility] 04-26-2024 10:26-0400 Body mass index (BMI) [Ratio] 30.65 kg/m2 Parish Valdez DO Work Phone: [facility] 04-26-2024 10:26-0400 Body weight 83.55 kg Parishchano Goodmano DO Work Phone: [facility] 04-26-2024 10:26-0400 Diastolic blood pressure 76 mm[Hg] Parish Courtney DO Work Phone: [facility] 04-26-2024 10:26-0400 Systolic blood pressure 122 mm[Hg] Parish Courtney DO Work Phone: [facility] 04-19-2024 13:13-0400 Body temperature 99.19 [degF] [facility] 1 [facility] 04-19-2024 13:13-0400 Diastolic blood pressure 79 mm[Hg] [facility] 1 [facility] 04-19-2024 13:13-0400 Heart rate 96 /min [facility] 1 [facility] 04-19-2024 13:13-0400 Respiratory rate 20 /min [facility] 1 [facility] 04-19-2024 13:13-0400 Systolic blood pressure 116 [...] 30.42 kg/m2 Parish Courtney DO Work Phone: [facility] 04-14-2024 14:33-0500 Body weight 82.92 kg Parish Courtney DO Work Phone: [facility] 04-14-2024 14:33-0500 Diastolic blood pressure 72 mm[Hg] Parish Courtney DO Work Phone: [facility] 04-14-2024 14:33-0500 Systolic blood pressure 122 mm[Hg] Parish Courtney DO Work Phone: [facility] 03-17-2024 10:51-0500 Body mass index (BMI) [Ratio] 29.31 kg/m2 Yaquelin Horne SIMI Work Phone: [facility] 03-17-2024 10:51-0500 Body weight 79.89 kg Yaquelin Horne PA Work Phone: [facility] 03-17-2024 10:51-0500 Diastolic blood pressure 70 mm[Hg] Yaquelin Horne PA Work Phone: [facility] 03-17-2024 10:51-0500 Systolic blood pressure 116 mm[Hg] Yaquelin Horne PA Work Phone: [facility] 03-08-2024 12:30-0500 Body temperature 99.81 [degF] [facility] 1 [facility] 03-08-2024 12:30-0500 Diastolic blood pressure 69 mm[Hg] [facility] 1 [facility] 03-08-2024 12:30-0500 Heart rate 103 /min [facility] 1 [facility] 03-08-2024 12:30-0500 Respiratory rate 18 /min [facility]l 1 [facility] 03-08-2024 12:30-0500 Systolic blood pressure 109 mm[Hg] [facility] 1 [facility] 03-08-2024 10:10-0500 Body mass index (BMI) [Ratio] 29.62 kg/m2 [facility] 1 [facility] 03-08-2024 10:10-0500 Body weight 80.74 kg [facility] 1 [facility] 02-18-2024 11:43-0500 Body mass index (BMI) [Ratio] 29.29 kg/m2 Parish Courtney DO Work Phone: [facility] 02-18-2024 11:43-0500 Body weight 79.83 kg Parish Courtney DO Work Phone: [facility] 02-18-2024 11:43-0500 Diastolic blood pressure 72 mm[Hg] Parish Courtney DO Work Phone: [facility] 02-18-2024 11:43-0500 Systolic blood pressure 122 mm[Hg] Parish Valdez DO Work Phone: [facility] 12-12-2023 11:50-0400 Body temperature 98.91 [degF] [facility] 2 [facility] 12-12-2023 11:50-0400 Diastolic blood pressure 66 mm[Hg] Wl 2 [facility] 12-12-2023 11:50-0400 Heart rate 92 /min [facility] 2 [facility] 12-12-2023 11:50-0400 Respiratory rate 18 /min Wl 2 [facility] 12-12-2023 11:50-0400 Systolic blood pressure 100 mm[Hg] [facility] 2 [facility] 12-12-2023 10:31-0400 Body mass index (BMI) [Ratio] 27.96 kg/m2 [facility] 2 [facility] 12-12-2023 10:31-0400 Body weight 76.2 kg [facility] 2 [facility] 12-01-2023 14:25-0400 Body height 165.1 cm Dominique Josh HERNANDEZN-NEWS PRODUCTION ASSISTANT Work Phone: [facility] 12-01-2023 14:25-0400 Body mass index (BMI) [Ratio] 27.89 kg/m2 Dominique Josh SENIOR PRODUCT DEVELOPMENT ENGINEER-NEWS PRODUCTION ASSISTANT Work Phone: [facility] 12-01-2023 14:25-0400 Body temperature 98.8 [degF] Dominique Josh HERNANDEZN-NEWS PRODUCTION ASSISTANT Work Phone: [facility] 12-01-2023 14:25-0400 Body weight 76.02 kg Dominique Josh SENIOR PRODUCT DEVELOPMENT ENGINEER-NEWS PRODUCTION ASSISTANT Work Phone: [facility] 12-01-2023 14:25-0400 Diastolic blood pressure 76 mm[Hg] Dominique Josh SENIOR PRODUCT DEVELOPMENT ENGINEER-NEWS PRODUCTION ASSISTANT Work Phone: [facility] 12-01-2023 14:25-0400 Heart rate 71 /min Dominique Josh SENIOR PRODUCT DEVELOPMENT ENGINEER-NEWS PRODUCTION ASSISTANT Work Phone: [facility] 12-01-2023 14:25-0400 Respiratory rate 16 /min Dominique Josh SENIOR PRODUCT DEVELOPMENT ENGINEER-NEWS PRODUCTION ASSISTANT Work Phone: [facility] 12-01-2023 14:25-0400 SaO2% (BldA) [Mass fraction] 99 % Dominique Josh SENIOR PRODUCT DEVELOPMENT ENGINEER-NEWS PRODUCTION ASSISTANT Work Phone: [facility] 12-01-2023 14:25-0400 Systolic blood pressure 111 mm[Hg] Dominique Josh SENIOR PRODUCT DEVELOPMENT ENGINEER-NEWS PRODUCTION ASSISTANT Work Phone: [facility] 10-31-2023 11:13-0400 Body temperature 98.6 [degF] [facility] 2 [facility] 10-31-2023 11:13-0400 Diastolic blood pressure 72 mm[Hg] [facility] 2 [facility] 10-31-2023 11:13-0400 Heart rate 85 /min [facility] 2 [facility] 10-31-2023 11:13-0400 Respiratory rate 18 /min [facility] 2 [facility] 10-31-2023 11:13-0400 Systolic blood pressure 112 mm[Hg] [facility] 2 [facility] 10-31-2023 09:51-0400 Body mass index (BMI) [Ratio] 27.81 kg/m2 [facility] 2 [facility] 10-31-2023 09:51-0400 Body weight 75.8 kg [facility] 2 [facility] 10-31-2023 08:50-0400 Body height 165.1 cm Sharda Montiel MD Work Phone: [facility] 10-31-2023 08:50-0400 Body mass index (BMI) [Ratio] 27.79 kg/m2 Sharda Montiel MD Work Phone: [facility] 10-31-2023 08:50-0400 Body weight 75.75 kg Sharda Motniel MD Work Phone: [facility] 10-31-2023 08:50-0400 Diastolic blood pressure 60 mm[Hg] Sharda Montiel MD Work Phone: [facility] 10-31-2023 08:50-0400 Systolic blood pressure 100 mm[Hg] Sharda Montiel MD Work Phone: [facility] 09-17-2023 09:46-0400 Body mass index (BMI) [Ratio] 27.06 kg/m2 Hilary Traci SENIOR PRODUCT DEVELOPMENT ENGINEER-NEWS PRODUCTION ASSISTANT Work Phone: [facility] 09-17-2023 09:46-0400 Body temperature 98.2 [degF] Hilary Traci SENIOR PRODUCT DEVELOPMENT ENGINEER-NEWS PRODUCTION ASSISTANT Work Phone: [facility] 09-17-2023 09:46-0400 Body weight 73.75 kg Hilary Traci SENIOR PRODUCT DEVELOPMENT ENGINEER-NEWS PRODUCTION ASSISTANT Work Phone: [facility] 09-17-2023 09:46-0400 Diastolic blood pressure 60 mm[Hg] Hilary Traci SENIOR PRODUCT DEVELOPMENT ENGINEER-NEWS PRODUCTION ASSISTANT Work Phone: [facility] 09-17-2023 09:46-0400 Heart rate 75 /min Hilary Traci SENIOR PRODUCT DEVELOPMENT ENGINEER-NEWS PRODUCTION ASSISTANT Work Phone: [facility] 09-17-2023 09:46-0400 SaO2% (BldA) [Mass fraction] 97 % Hilary Traci SENIOR PRODUCT DEVELOPMENT ENGINEER-NEWS PRODUCTION ASSISTANT Work Phone: [facility] 09-17-2023 09:46-0400 Systolic blood pressure 98 mm[Hg] Hilary Ruizsler SENIOR PRODUCT DEVELOPMENT ENGINEER-NEWS PRODUCTION ASSISTANT Work Phone: [facility] 09-15-2023 12:10-0400 Body temperature 98.71 [degF] [facility] 3 [facility] 09-15-2023 12:10-0400 Diastolic blood pressure 70 mm[Hg] [facility] 3 [facility] 09-15-2023 12:10-0400 Heart rate 75 /min [facility] 3 [facility] 09-15-2023 12:10-0400 Respiratory rate 20 /min [facility] 3 [facility] 09-15-2023 12:10-0400 Systolic blood pressure 117 mm[Hg] [facility] 3 [facility] 09-15-2023 10:43-0400 Body mass index (BMI) [Ratio] 26.89 kg/m2 [facility] 3 [facility] 09-15-2023 10:43-0400 Body weight 73.3 kg [facility] 3 [facility] 08-20-2023 14:15-0400 Body height 165.1 cm Hilary Aviles SENIOR PRODUCT DEVELOPMENT ENGINEER-NEWS PRODUCTION ASSISTANT Work Phone: [facility] 08-20-2023 14:15-0400 Body mass index (BMI) [Ratio] 26.36 kg/m2 Hilary Aviles SENIOR PRODUCT DEVELOPMENT ENGINEER-NEWS PRODUCTION ASSISTANT Work Phone: [facility] 08-20-2023 14:15-0400 Body temperature 98.6 [degF] Hilary Correauessler SENIOR PRODUCT DEVELOPMENT ENGINEER-NEWS PRODUCTION ASSISTANT Work Phone: [facility] 08-20-2023 14:15-0400 Body weight 71.85 kg Hilary Aviles SENIOR PRODUCT DEVELOPMENT ENGINEER-NEWS PRODUCTION ASSISTANT Work Phone: [facility] 08-20-2023 14:15-0400 Diastolic blood pressure 72 mm[Hg] Hilary Aviles SENIOR PRODUCT DEVELOPMENT ENGINEER-NEWS PRODUCTION ASSISTANT Work Phone: [facility] 08-20-2023 14:15-0400 Heart rate 87 /min Hilary Aviles SENIOR PRODUCT DEVELOPMENT ENGINEER-NEWS PRODUCTION ASSISTANT Work Phone: [facility] 08-20-2023 14:15-0400 SaO2% (BldA) [Mass fraction] 97 % Hilary Correauessler SENIOR PRODUCT DEVELOPMENT ENGINEER-NEWS PRODUCTION ASSISTANT Work Phone: [facility] 08-20-2023 14:15-0400 Systolic blood pressure 116 mm[Hg] Hilary Aviles SENIOR PRODUCT DEVELOPMENT ENGINEER-NEWS PRODUCTION ASSISTANT Work Phone: [facility] 08-04-2023 14:48-0400 Body temperature 98.2 [degF] [facility] 2 [facility] 08-04-2023 14:48-0400 Diastolic blood pressure 77 mm[Hg] [facility] 2 [facility] 08-04-2023 14:48-0400 Heart rate 76 /min [facility] 2 [facility] 08-04-2023 14:48-0400 Respiratory rate 20 /min [facility] 2 [facility] 08-04-2023 14:48-0400 Systolic blood pressure 118 mm[Hg] [facility] 2 [facility] 08-04-2023 13:22-0400 Body mass index (BMI) [Ratio] 27.19 kg/m2 [facility] 2 [facility] 08-04-2023 13:22-0400 Body weight 74.12 kg [facility] 2 [facility] 04-21-2023 13:05-0400 Body temperature 97.81 [degF] [facility] 4 [facility] 04-21-2023 13:05-0400 Diastolic blood pressure 75 mm[Hg] [facility] 4 [facility] 04-21-2023 13:05-0400 Heart rate 78 /min [facility] 4 [facility] 04-21-2023 13:05-0400 Respiratory rate 20 /min [facility] 4 [facility] 04-21-2023 13:05-0400 Systolic blood pressure 117 mm[Hg] [facility] 4 [facility] 04-21-2023 10:29-0400 Body mass index (BMI) [Ratio] 27.89 kg/m2 [facility] 4 [facility] 04-21-2023 10:29-0400 Body weight 76.02 kg [facility] 4 [facility] 02-20-2023 11:48-0500 Body height 165.1 cm [...] [facility] 02-17-2023 14:26-0500 Body temperature 99.1 [degF] [address] 02-17-2023 14:26-0500 Diastolic blood pressure 77 mm[Hg] [address] 02-17-2023 14:26-0500 Heart rate 100 /min [address] 02-17-2023 14:26-0500 SaO2% (BldA) [Mass fraction] 97 % [address] 02-17-2023 14:26-0500 Systolic blood pressure 117 mm[Hg] [address] 02-17-2023 11:45-0500 Body mass index (BMI) [Ratio] 27.69 kg/m2 [address] 02-17-2023 11:45-0500 Body weight 75.[address] 02-17-2023 11:45-0500 Respiratory rate 20 /min [address] 02-06-2023 12:54-0500 Diastolic blood pressure 69 mm[Hg] [facility] 3 [facility] 02-06-2023 12:54-0500 Heart rate 92 /min Pfo [address] [place] [address] 02-06-2023 12:54-0500 Respiratory rate 18 /min [facility] 3 [facility] 02-06-2023 12:54-0500 SaO2% (BldA) [Mass fraction] 100 % [facility] 3 [facility] 02-06-2023 12:54-0500 Systolic blood pressure 104 mm[Hg] [facility] 3 [facility] 02-06-2023 11:37-0500 Body height 165.1 cm [facility] 3 [facility] 02-06-2023 11:37-0500 Body mass index (BMI) [Ratio] 27.46 kg/m2 [facility] 3 [facility] 02-06-2023 11:37-0500 Body temperature 98.4 [degF] [facility] 02-06-2023 11:37-0500 Body weight 74.84 kg Pfo 3 [facility] Encounters Encounter Date Encounter Type Care Provider Facility Start: 05-28-2024 End: 05-28-2024 Clinisync Result Encounter Parish Courtney DO Work Phone: [facility] Unsolicited Start: 05-28-2024 End: 05-28-2024 Clinisync Result Encounter Parish Courtney DO Work Phone: [facility] Unsolicited Start: 05-27-2024 End: 05-27-2024 Clinisync Result Encounter Parish Courtney DO Work Phone: [facility] Unsolicited Start: 05-27-2024 End: 05-27-2024 Clinisync Result Encounter Parish Courtney DO Work Phone: [facility] Unsolicited Start: 05-26-2024 End: 05-26-2024 ambulatory PARISH COURTNEY Not Available Start: 05-26-2024 End: 05-26-2024 Bamboo flowsheet Parish Courtney DO Work Phone: [facility] Start: 05-26-2024 End: 05-26-2024 Bamboo flowsheet Parish Courtney DO Work Phone: [facility] Start: 05-26-2024 End: 05-26-2024 flow sheet Parish Courtney DO Work Phone: [facility] Comment on above: Third trimester preg aye; History of Crohn's disease; 29 weeks gestation of Start: 05-24-2024 End: 05-24-2024 ambulatory [facility] Infusion Chair 3 [facility] Comment on above: Crohn's disease of b oth small and large intestine with intestinal obstruction (CMS-HCC) (Primary Dx) Start: 05-14-2024 End: 05-14-2024 Telephone encounter Raulito Jimenez DO Work Phone: [facility] Start: 05-12-2024 End: 05-12-2024 ambulatory [...] [facility] Start: 05-12-2024 End: 05-12-2024 ambulatory ALVORDTON Russ JIMENEZ [facility] Start: 05-10-2024 End: 05-10-2024 Clinisync Result Encounter [...] Department Unsolicited Start: 05-06-2024 End: 05-06-2024 ambulatory RAULITO Russ JIMENEZ [facility] Start: 05-06-2024 End: 05-06-2024 Office outpatient visit 25 minutes Raulito Jimenez DO Work Phone: [facility] Comment on above: HTN complicating per ipregnancy, antepartum, second trimester (Primary Dx); 26 weeks gestation of ; Anemia affecting fourth ; HTN, goal below 130/80 Start: 05-04-2024 End: 05-04-2024 Chart abstracting Deepthi Tomas MD Work Phone: [facility] Start: 04-26-2024 End: 04-26-2024 Bamboo flowsheet Parish [...] Orders Only Sharda Montiel MD Work Phone: [facility] Comment on above: Ulcerative colitis w ith other complication, unspecified location (CMS-HCC) (Primary Dx) Start: 04-22-2024 End: 04-22-2024 Orders Only Sharda Montiel MD Work Phone: [facility] Comment on above: Crohn's disease of c olon with other complication (CMS-HCC) (Primary Dx) Start: 04-21-2024 End: 04-21-2024 ambulatory YAQUELIN HORNE Not Available Start: 04-20-2024 End: 04-20-2024 Orders Only Sharda Montiel MD Work Phone: [facility] Start: 04-19-2024 End: 04-21-2024 Telephone encounter Sharda Montiel MD Work Phone: [facility] Start: 04-19-2024 End: 04-19-2024 [facility] Start: 04-19-2024 End: 04-19-2024 Office outpatient visit 40 minutes Sharda Montiel MD Work Phone: [facility] Comment on above: Thrombocytopenia (CM S-HCC) (Primary Dx); Crohn's disease with complication, unspecified gastrointestinal tract location (CMS-HCC) Start: 04-19-2024 End: 04-19-20[facility] Comment on above: [...] 03-24-2024 End: 03-24-2024 Clinisync Result Encounter Parish Corutney DO Work Phone: [facility] Unsolicited Start: 03-17-2024 End: 03-17-2024 Bamboo flowsheet Yaquelin BELCHER Work Phone: [facility] Start: 03-17-2024 End: 03-18-2024 Bamboo flowsheet Yaquelin BELCHER Work Phone: [facility] Start: 03-17-2024 End: 03-18-2024 External Result Encounter Yaquelin Horne SIMI Work Phone: [facility] External [facility] Unsolicited Start: 03-17-2024 End: 03-17-2024 ambulatory YAQUELIN HORNE Not Available Start: 03-17-2024 End: 03-17-2024 flow sheet Yaquelin BELCHER Work Phone: [facility] Comment on above: Second [...] [facility] Comment on above: Crohn's disease of b oth small and large intestine with intestinal obstruction (CMS-HCC) (Primary Dx) Start: 02-18-2024 End: 02-18-2024 Bamboo flowsheet Parish Courtney DO Work Phone: [facility] Start: 02-18-2024 End: 02-18-2024 Bamboo flowsheet Parish Courtney DO Work Phone: [facility] Start: 02-18-2024 End: 01-08-2025 ambulatory PARISH COURTNEY Not Available Start: 02-18-2024 End: 02-18-2024 flow sheet Parish Goodmano DO Work Phone: [facility] Comment on above: Second trimester pre gnancy; 15 weeks gestation of ; H/O oligohydramnios in prior , currently Start: 02-14-2024 End: 02-14-2024 Clinisync Result Encounter Parish Goodmano DO Work Phone: [facility] Unsolicited Start: 02-14-2024 End: 02-14-2024 Clinisync Result Encounter Parish Goodmano DO Work Phone: [facility] Unsolicited Start: 02-03-2024 End: 02-03-2024 Orders Only Sharda Montiel MD Work Phone: [facility] [address] Comment on above: Therapeutic drug mon itoring (Primary Dx) Start: 01-31-2024 End: 01-31-2024 Emergency department patient visit [facility] Start: 01-26-2024 End: 01-26-2024 ambulatory [facility] Start: 01-26-2024 End: 01-26-2024 ambulatory [facility] Start: 01-23-2024 End: 01-23-2024 ambulatory YAQUELIN HORNE Not Available Start: 01-23-2024 End: 01-23-2024 Office outpatient visit 5 minutes [facility] Courtney Nurse [facility] Comment on above: GA: 11w2d Start: 01-13-2024 End: 01-13-2024 Orders Only Dominique Moya SENIOR PRODUCT DEVELOPMENT ENGINEER-NEWS PRODUCTION ASSISTANT Work Phone: [facility] Comment on above: Iron deficiency anem ia due to chronic blood loss (Primary Dx); Iron malabsorption; Iron deficiency anemia, unspecified Start: 01-06-2024 End: 01-06-2024 Orders Only Dominique Moya SENIOR PRODUCT DEVELOPMENT ENGINEER-NEWS PRODUCTION ASSISTANT Work Phone: [facility] Comment on above: Iron deficiency anem ia due to chronic blood loss (Primary Dx); Iron malabsorption; Iron deficiency anemia, unspecified Start: 01-03-2024 End: 01-03-2024 Emergency department patient visit [facility] Start: 12-17-2023 End: 12-18-2023 Telephone encounter Raf Zarco RN [facility] Start: 12-12-2023 End: 12-12-2023 ambulatory [facility] Infusion Chair 2 [facility] Comment on above: Crohn's disease of b oth small and large intestine with intestinal obstruction (CMS-HCC) (Primary Dx) Start: 12-01-2023 End: 12-01-2023 Office outpatient visit 25 minutes Dominique HALEY Work Phone: [facility] Comment on above: Iron deficiency (Ping hussein Dx); Crohn's disease of both small and large intestine with intestinal obstruction (CMS-HCC); Chronic fatigue; Leg cramps; Noncompliance; Iron deficiency anemia due to chronic blood loss; Iron malabsorption; Iron deficiency anemia, unspecified Start: 12-01-2023 End: 12-01-2023 ambulatory [facility] Start: 12-01-2023 End: 12-01-2023 ambulatory MJ PIZARRO [facility] Start: 10-31-2023 End: 10-31-2023 Office outpatient visit [...] (Primary Dx) Start: 09-17-2023 End: 09-17-2023 ambulatory [facility] Start: 09-17-2023 End: 09-17-2023 Office outpatient visit 25 minutes Hilary Aviles SENIOR PRODUCT DEVELOPMENT ENGINEER-NEWS PRODUCTION ASSISTANT Work Phone: [facility] Comment [...] 09-03-2023 End: 09-03-2023 Telephone encounter Hilary Aviles SENIOR PRODUCT DEVELOPMENT ENGINEER-NEWS PRODUCTION ASSISTANT Work Phone: [facility] Start: 09-03-2023 End: 09-03-2023 ambulatory [facility] Start: 09-03-2023 End: 09-03-2023 Phys/qhp telephone evaluation 11-20 min Hilary Aviles SENIOR PRODUCT DEVELOPMENT ENGINEER-NEWS PRODUCTION ASSISTANT Work Phone: [facility] Comment on above: Reactive depression (Primary Dx) Start: 08-20-2023 End: 08-20-2023 ambulatory [facility] Start: 08-20-2023 End: 08-20-2023 Office outpatient visit 25 minutes Hilary Aviles SENIOR PRODUCT DEVELOPMENT ENGINEER-NEWS PRODUCTION ASSISTANT Work Phone: [facility] Comment [...] Nic Aguilar [facility] Start: 02-20-2023 End: 02-20-2023 [...] ambulatory Pfo Infusion Chair 3 Ally Lovell [facility] - Medical Oncology Comment on above: Iron deficiency anem ia due to chronic blood loss (Primary Dx); Iron deficiency anemia, unspecified; Iron malabsorption Start: 04-30-2022 End: 04-30-2022 ambulatory SEBASTIAN HERRING Facility: Start: 12-03-2016 End: 12-04-2016 Ambulatory SAMARA HERNANDEZ [facility] Start: 11-19-2016 End: 11-26-2016 Ambulatory SAMARA HERNANDEZ [facility] Start: 10-29-2016 End: 10-30-2016 Ambulatory SAMARA HERNANDEZ [facility] Start: 10-01-2016 End: 10-01-2016 Ambulatory SAMARA HERNANDEZ [facility] Start: 08-29-2016 End: 08-29-2016 Ambulatory SAMARA HERNANDEZ [facility] Procedures Date Procedure Procedure Detail Performing Clinician Start: 05-28-2024 ALL CBC WITH AUTO DIFF Parish Courtney DO Work Phone: Start: 05-27-2024 ALL CBC WITH AUTO DIFF Parish Courtney DO Work Phone: Start: 05-12-2024 Urnls dip stick/tabl et rgnt [...] 12-01-2023 Follow-up visit Follow-up DOMINIQUE MOYA Start: 09-17-2023 Adult depression scr eening assessment Hilary Aviles SENIOR PRODUCT DEVELOPMENT ENGINEER-[employer] D[employer] Work Phone: Start: 09-17-2023 Microscopic observat ion [Identifier] in Cervix by Cyto stain Sharda Montiel MD Work Phone: Start: 08-20-2023 Adult depression scr eening assessment Hilary Aviles SENIOR PRODUCT DEVELOPMENT ENGINEER-NEWS PRODUCTION ASSISTANT Work Phone: Start: 11-23-2020 Adult depression scr eening assessment Pfo 3 Plan of Treatment Date Care Activity Detail Author Start: 09-16-2026 Screening for malign ant neoplasm of cervix Pap Smear [facility] Start: 05-06-2025 Adult BMI Screening Adult BMI Screen ing [facility] Start: 05-06-2025 Depression Screening Depression Scre ening [facility] Start: 05-06-2025 Tobacco Screening Tobacco Screening [facility] Start: 04-19-2025 Adult BMI Screening Adult BMI Screen ing [facility] Start: 04-19-2025 Tobacco Screening Tobacco Screening [facility] Start: 01-30-2025 Adult BMI Screening Adult BMI Screen ing [facility] Start: 01-30-2025 Tobacco Screening Tobacco Screening [facility] Start: 01-02-2025 Adult BMI Screening Adult BMI Screen ing [facility] Start: 01-02-2025 Tobacco Screening Tobacco Screening [facility] Start: 12-11-2024 Adult BMI Screening Adult BMI Screen ing [facility] Start: 12-02-2024 End: 12-02-2024 Patient encounter procedure 12/02/2024 10:15 AM EDT Office Visit Ally Lovell [facility] - Medical Oncology [address] [place] [address] Mj Pizarro MD [address] [place] [address] Ally Lovell [facility] - Medical Oncology Start: 10-30-2024 Adult BMI Screening Adult BMI Screen ing [facility] Start: 10-30-2024 Tobacco Screening Tobacco Screening [facility] Start: 10-11-2024 Influenza vaccination Influenza Vacc ine [facility] Start: 09-16-2024 Adult BMI Screening Adult BMI Screen ing [facility] Start: 09-16-2024 Depression Screening Depression Scre ening [facility] Start: 09-16-2024 Tobacco Screening Tobacco Screening [facility] Start: 09-14-2024 Adult BMI Screening Adult BMI Screen ing [facility] Start: 09-02-2024 Tobacco Screening Tobacco Screening [facility] Start: 08-19-2024 Adult BMI Screening Adult BMI Screen ing [facility] Start: 08-19-2024 Depression Screening Depression Scre ening [facility] Start: 08-19-2024 Tobacco Screening Tobacco Screening [facility] Start: 08-03-2024 Adult BMI Screening Adult BMI Screen ing [facility] Start: 06-28-2024 End: 06-28-2024 ambulatory 06/28/2024 10:30 AM EDT [facility] Infusion [address] [phone] [facility] Start: 06-09-2024 End: 06-09-2024 Patient encounter procedure 06/09/2024 2:50 PM EDT Routine [facility] [address] [place] [address] Yaquelin Horne PA [address] [place] [address] [facility] Start: 06-02-2024 End: 06-02-2024 Patient encounter procedure 06/02/2024 8:45 AM EDT Office Visit Maternal- Medicine at [facility] [address] [place] [phone] Deepthi Tomas MD [address] [facility] 1st [place] [address] Maternal- Medicine at [facility] Start: 06-02-2024 End: 06-02-2024 Patient encounter procedure 06/02/2024 7:30 AM EDT Appointment [facility] [address] [place] [phone] [facility] Start: 05-31-2024 End: 05-31-2024 ambulatory 05/31/2024 10:00 AM EDT Infusion [facility] [address] [place] [address] [facility] Start: 05-26-2024 End: 05-26-2024 Patient encounter procedure 05/26/2024 2:00 PM EDT Routine [facility] [address] [place] [address] Parish Valdez DO [address] [place] [address] [facility] Start: 05-24-2024 End: 05-24-2024 ambulatory 05/24/2024 10:30 AM EDT Infusion [facility] Infusion [address] [place] [phone] [facility] Start: 05-12-2024 End: 05-12-2024 Patient encounter procedure 05/12/2024 2:30 PM EDT Routine [facility] [address] [place] [phone] Yaquelin Horne PA [address] [place] [address] [facility] Start: 05-06-2024 End: 05-06-2025 Echo complete W/O contrast Echo complete W/O contrast Echocardiography Routine HTN complicating peripregnancy, antepartum, second trimester 26 weeks gestation of Expected: 05/06/2024, Expires: 05/06/2025 [facility] Work Phone: Comment on above: Expected: 05/06/2024 , Expires: 05/06/2025 Start: 04-26-2024 End: 04-26-2024 Patient encounter procedure 04/26/2024 10:10 AM EDT Office Visit [facility] [address] [place] [phone] Parish Valdez DO [address] [facility] [address] [place] [address] Arrived [facility] Comment on above: Arrived Start: 04-21-2024 End: 04-21-2024 Professional / ancillary services management 04/21/2024 11:00 AM EDT Ancillary Procedure [facility] [address] [place] [phone] [facility] Start: 04-20-2024 Adult BMI Screening Adult BMI Screen ing [facility] Start: 04-19-2024 End: 04-19-2025 Cyanocobalamin vitamin b-12 Vitamin B12 Lab Routine Crohn's disease with complication, unspecified gastrointestinal tract location ([facility]) Expected: 04/19/2024, Expires: 04/19/2025 [facility] Comment on above: Expected: 04/19/2024 , Expires: 04/19/2025 Start: 04-19-2024 End: 04-19-2024 ambulatory 04/19/2024 10:30 AM EDT Infusion [facility] [address] [place] [phone] [facility] Start: 04-19-2024 End: [...] Expected: 04/14/2024 (Approximate), Expires: 04/14/2025 [facility] Comment on above: Expected: 04/14/2024 (Approximate), Expires: 04/14/2025 Start: 04-14-2024 End: 04-14-2024 Patient encounter procedure 04/14/2024 1:40 PM EST Routine [facility] [address] [place] [phone] Parish Valdez [address] [facility] [address] [place] [address] [facility] Start: 03-17-2024 End: 09-14-2024 [...] Routine [facility] [address] [place] [address] Yaquelin Horne, PA [address] [place] [address] [facility] Start: 03-08-2024 End: 03-08-2024 ambulatory 03/08/2024 10:00 AM EST Infusion [facility] [address] [facility] [place] [address] [facility] Start: 02-21-2024 Adult BMI Screening Adult BMI Screen ing [facility] Start: 02-21-2024 Tobacco Screening Tobacco Screening [facility] Start: 02-18-2024 Adult BMI Screening Adult BMI Screen ing [facility] Start: 02-18-2024 End: 02-18-2024 Patient encounter procedure 02/18/2024 11:30 AM EST Routine [facility] [address] [place] [phone] Parish Valdez DO [address] [place] [address] [facility] Start: 02-07-2024 Tobacco Screening Tobacco Screening [facility] Start: 01-31-2024 Adult BMI Screening Adult BMI Screen ing [facility] Start: 01-31-2024 Tobacco Screening Tobacco Screening [facility] Start: 01-26-2024 End: 01-26-2024 ambulatory 01/26/2024 10:00 AM EST Infusion [facility] [address] [place] [phone] [facility] Start: 01-23-2024 End: 01-22-2025 ABO/Rh ABO/Rh Lab Routine Missed menses , unspecified gestational age Expected: 01/23/2024 (Approximate), Expires: 01/22/2025 [facility] Comment on above: Expected: 01/23/2024 (Approximate), Expires: 01/22/2025 Start: 01-23-2024 End: 01-22-2025 Blood type and Indirect antibody screen panel - Blood Type and screen Lab Routine Missed menses , unspecified gestational age Expected: 01/23/2024 (Approximate), Expires: 01/22/2025 [facility] Work Phone: Comment on above: Expected: 01/23/2024 (Approximate), Expires: 01/22/2025 Start: 01-23-2024 End: 01-22-2025 Drugs of abuse panel - Urine by Screen method Rapid drug screen, urine Lab Routine , unspecified gestational age Encounter for supervision of normal first in first trimester Expected: 01/23/2024 (Approximate), Expires: 01/22/2025 [facility] Comment on above: Expected: 01/23/2024 (Approximate), Expires: 01/22/2025 Start: 01-23-2024 End: 01-22-2025 US Pelvis transvaginal US OB transvaginal Imaging Routine Missed menses Expected: 01/23/2024 (Approximate), Expires: 01/22/2025 [facility] Comment on above: Expected: 01/23/2024 (Approximate), Expires: 01/22/2025 Start: 12-22-2023 End: 12-22-2023 Patient encounter procedure 12/22/2023 3:40 PM EST Office Visit [facility] [address] [place] [address] [place] [phone] Hilary Aviles, SENIOR PRODUCT DEVELOPMENT ENGINEER-NEWS PRODUCTION ASSISTANT [address] [facility] [address], [place] [address] [facility] Start: 12-12-2023 End: 12-12-2023 ambulatory 12/12/2023 10:00 AM EDT Infusion [facility] [address] [address] [facility] Start: 11-20-2023 End: 11-20-2023 Patient encounter procedure 11/20/2023 1:00 PM EDT Office Visit Ally Lovell [facility] - Medical Oncology [address] [place] [address] Mj Pizarro MD [address] [facility] [address] [place] [address] Ally Lovell [facility] - Medical Oncology Start: 11-19-2023 End: 11-19-2023 Patient encounter procedure 11/19/2023 9:40 AM EDT Office Visit [facility] [address] [facility] [place] [phone] Hilary Aviles, SENIOR PRODUCT DEVELOPMENT ENGINEER-NEWS PRODUCTION ASSISTANT [address], [place] [address] [facility] Start: 10-31-2023 End: 10-30-2024 C-reactive protein C-reactive protein Lab Routine Crohn's disease of both small and large intestine with other complication ([facility]) Expected: 10/31/2023, Expires: 10/30/2024 [facility] Comment on above: Expected: 10/31/2023 , Expires: 10/30/2024 Start: 10-31-2023 End: 10-30-2024 Cyanocobalamin vitamin b-12 Vitamin B12 Lab Routine Crohn's disease of both small and large intestine with other complication (CMS-HCC) Expected: 10/31/2023, Expires: 10/30/2024 [email or web address] Comment on above: Expected: 10/31/2023 , Expires: 10/30/2024 Start: 10-31-2023 End: 10-30-2024 Erythrocyte sedimentation rate Erythrocyte Sedimentation Rate (ESR) Lab Routine Crohn's disease of both small and large intestine with other complication (CMS-HCC) Expected: 10/31/2023, Expires: 10/30/2024 [facility] Comment on above: Expected: 10/31/2023 , Expires: 10/30/2024 Start: 10-31-2023 End: 10-31-2023 ambulatory 10/31/2023 9:30 AM EDT Infusion [facility] [address] [place] [address] [address] [place] [address] [facility] Start: 10-31-2023 End: 10-31-2023 Patient encounter procedure 10/31/2023 9:00 AM EDT Office Visit [facility] [address] [place] [address] [address] [place] [address] [place] [address] [place] [address], [address] [place] [address] [facility] Start: 10-27-2023 End: 10-27-2023 ambulatory 10/27/2023 12:00 PM EDT Infusion [facility] [address] [place] [address] [address] [place] [address] [facility] Start: 10-27-2023 End: 10-27-2023 Patient encounter procedure 10/27/2023 11:30 AM EDT Office Visit [facility] [address] [place] [address] [address] [place] [address] [place] [address] [place] [address], [address] [place] [address] [facility] Start: 10-12-2023 Influenza vaccination Influenza Vacc ine [facility] Start: 09-17-2023 End: 09-17-2023 Patient encounter procedure 09/17/2023 9:20 AM EDT Office Visit [facility] [address] [place] [address] [place] [phone] Hilary Aviles, SENIOR PRODUCT DEVELOPMENT ENGINEER-NEWS PRODUCTION ASSISTANT [address] [facility] [address], [place], [place] [phone] [facility] Start: 09-15-2023 End: 09-15-2023 ambulatory 09/15/2023 10:00 AM EDT Infusion [facility] [address] [address] [facility] Start: 06-17-2023 End: 06-17-2023 Patient encounter procedure 06/17/2023 11:15 AM EDT Office Visit [facility] [address] [address] Meaghan King PA-C [address] [place] [address] [facility] Start: 06-10-2023 End: 06-10-2023 ambulatory 06/10/2023 10:30 AM EDT Infusion [facility] [address] [address] [facility] Start: 04-21-2023 End: 04-21-2023 ambulatory 04/21/2023 10:00 AM EDT Infusion [facility] [address] [address] [facility] Start: 03-31-2023 End: 03-31-2023 ambulatory 03/31/2023 10:00 AM EST Infusion [facility] [address] [address] [facility] Start: 02-17-2023 End: 02-17-2023 ambulatory 02/17/2023 11:30 AM EST Infusion [facility] [address] [address] [facility] Start: 10-11-2022 Influenza vaccination Influenza Vacc ine [facility] Start: 11-23-2021 Depression Screening Depression Scre ening [facility] Start: 2010 Screening for malign ant neoplasm of cervix Pap Smear [facility] Start: 2008 DTaP,Tdap and Td Vaccines (1 - Tdap) DTaP,Tdap and Td Vaccines (1 - Tdap) [facility] Start: 11-11-2007 Adult BMI Follow Up Plan Adult BMI F ollow Up Plan [facility] Bacteria identified in Urine by Culture Urine culture Microbiology Routine Missed menses Ordered: 01/23/2024 [facility] Comment on above: Ordered: 01/23/2024 End: 10-30-2024 Basic metabolic 2000 panel - Serum or Plasma Basic Metabolic Panel Lab Routine Therapeutic drug monitoring Crohn's disease of both small and large intestine with other complication ([facility]) 1 Occurrences starting 10/31/2023 until 10/30/2024 [facility] [employer] Comment on above: 1 Occurrences starti ng 10/31/2023 until 10/30/2024 End: 10-30-2024 Calprotectin, F Calprotectin, F Lab Routine Crohn's disease of both small and large intestine with other complication ([facility]) 1 Occurrences starting 10/31/2023 until 10/30/2024 [employer] Work Phone: Comment on above: 1 Occurrences starti ng 10/31/2023 until 10/30/2024 End: 04-22-2025 Calprotectin, F Calprotectin, F Lab Routine Crohn's disease of colon with other complication ([facility]) 1 Occurrences starting 04/22/2024 until 04/22/2025 [employer] Work Phone: Comment on above: 1 Occurrences starti ng 04/22/2024 until 04/22/2025 End: 04-23-2025 Calprotectin, F Calprotectin, F Lab Routine Ulcerative colitis with other complication, unspecified location ([facility]) 1 Occurrences starting 04/23/2024 until 04/23/2025 [employer] Work Phone: Comment on above: 1 Occurrences starti ng 04/23/2024 until 04/23/2025 End: 10-30-2024 CBC panel - Blood by Automated count CBC without diff Lab Routine Therapeutic drug monitoring 1 Occurrences starting 10/31/2023 until 10/30/2024 [email or web address] Comment on above: 1 Occurrences starti ng 10/31/2023 until 10/30/2024 CBC W Auto Different ial panel - Blood CBC and differential Lab Routine Missed menses , unspecified gestational age Ordered: 01/23/2024 [facility] Comment on above: Ordered: 01/23/2024 End: 04-19-2025 CBC W Auto Differential panel - Blood CBC auto differential Lab Routine Thrombocytopenia (CMS-HCC) 1 Occurrences starting 04/19/2024 until 04/19/2025 [employer] Work Phone: Comment on above: 1 Occurrences starti ng 04/19/2024 until 04/19/2025 CHLAMYDIA TRACHOMATI S (GENITO/STI) CHLAMYDIA TRACHOMATIS (GENITO/STI) Lab Routine STD exposure Ordered: 03/17/2024 [facility] Comment on above: Ordered: 03/17/2024 Hemoglobin A1c/Hemoglobin.total in Blood Hemoglobin A1c Lab Routine Missed menses , unspecified gestational age Ordered: 01/23/2024 [facility] Comment on above: Ordered: 01/23/2024 Hepatitis B virus surface Ag [Presence] in Serum or Plasma by Immunoassay Hepatitis B surface antigen Lab Routine Missed menses , unspecified gestational age Ordered: 01/23/2024 [facility] Comment on above: Ordered: 01/23/2024 Hepatitis C virus Ab [Presence] in Serum or Plasma by Immunoassay Hepatitis C antibody Lab Routine Missed menses , unspecified gestational age Ordered: 01/23/2024 [facility] Comment on above: Ordered: 01/23/2024 HIV-1/HIV-2 antigen/antibody combination immunoassay HIV-1 and HIV-2 antibodies Lab Routine Missed menses , unspecified gestational age Ordered: 01/23/2024 [facility] Comment on above: Ordered: 01/23/2024 End: 10-30-2024 Liver panel Liver panel Lab Routine Therapeutic drug monitoring Crohn's disease of both small and large intestine with other complication ([facility]) 1 Occurrences starting 10/31/2023 until 10/30/2024 [email or web address] Comment on above: 1 Occurrences starti ng 10/31/2023 until 10/30/2024 End: 06-08-2024 Mycobacterium TB by Quantiferon Gold Mycobacterium TB by Quantiferon Gold Lab Routine Crohn's disease of both small and large intestine with intestinal obstruction (CMS-HCC) 1 Occurrences starting 06/09/2023 until 06/08/2024 [employer] Work Phone: Comment on above: 1 Occurrences starti ng 06/09/2023 until 06/08/2024 Neisseria gonorrhoea e DNA [Presence] in Unspecified specimen by ROBERT with probe detection Neisseria gonorrhea DNA probe, direct Lab Routine STD exposure Ordered: 03/17/2024 [facility] Comment on above: Ordered: 03/17/2024 End: 02-07-2023 Oxygen Therapy - Maintain SpO2: 90% or greater; *AUTOMATIC TYPEWRITER INSPECTOR Guidelines for O2: Yes; Document: file://[employer].or g/epic/EPIC_Reference/Or ders/Respiratory%20Care% 20Guidelines/CPG%20Oxyge n%[email or web address].pdf Oxygen Therapy - Maintain SpO2: 90% or greater; *AUTOMATIC TYPEWRITER INSPECTOR Guidelines for O2: Yes; Document: file://[employer].org /epic/EPIC_Reference/Orde rs/Respiratory%20Care%20G uidelines/CPG%20Oxygen%20 2015.pdf Respiratory Care STAT Iron deficiency anemia due to chronic blood loss Iron deficiency anemia, unspecified Iron malabsorption As Needed for 1 Occurrences starting 02/06/2023 until 02/07/2023 [employer] Work Phone: Comment on above: As Needed [...] menses , unspecified gestational age Ordered: 01/23/2024 [employer] Comment on above: Ordered: 01/23/2024 Rubella antibody, IgG Rubella an tibody, IgG Lab Routine Missed menses , unspecified gestational age Ordered: 01/23/2024 [employer] Comment on above: Ordered: 01/23/2024 SURESWAB(R) ADVANCED VAGINITIS PLUS, TMA SURESWAB(R) ADVANCED VAGINITIS PLUS, TMA Pathology and Cytology Routine Vaginal discharge Ordered: 03/17/2024 [employer] Work Phone: Comment on above: Ordered: 03/17/2024 End: 02-02-2025 Thiopurine Metabs Thiopurine Metabs Lab Routine Therapeutic drug monitoring 1 Occurrences starting 02/03/2024 until 02/02/2025 [employer] Work Phone: Comment on above: 1 Occurrences starti ng 02/03/2024 until 02/02/2025 End: 10-30-2024 Thiopurine Metabs Thiopurine Metabs Lab Routine Therapeutic drug monitoring 1 Occurrences starting 10/31/2023 until 10/30/2024 [email or web address] Comment on above: 1 Occurrences starti ng 10/31/2023 until 10/30/2024 End: 10-30-2024 Vitamin D 25 hydroxy Vitamin D 25 hydroxy Lab Routine Crohn's disease of both small and large intestine with other complication ([facility]) 1 Occurrences starting 10/31/2023 until 10/30/2024 [email or web address] Comment on above: 1 Occurrences starti ng 10/31/2023 until 10/30/2024 End: 04-19-2025 Vitamin D 25 hydroxy Vitamin D 25 hydroxy Lab Routine Crohn's disease with complication, unspecified gastrointestinal tract location ([facility]) 1 Occurrences starting 04/19/2024 until 04/19/2025 [email or web address] Comment on above: 1 Occurrences starti ng 04/19/2024 until 04/19/2025 Payers Date Payer Category Payer Medicaid [id number] 2022 Medicaid [id number] 2021 Commercial Managed C are - POS [employer] [id number] 2021 Managed Care HMO (unspecified) [employer] [id number] 2021 Private Health Insurance [employer] AET[employer] POS II [id number] 2021-Present [phone] [address] [place] [address] [id number] 1989 Unknown [id number] 1989 Unknown [id number] 1989 Unknown [id number] 2.16.840.1.106781.3.579. 2.1286 1989 Unknown [id number] 2.16.840.1.151459.3.579. 2.6 1989 Unknown [id number] 2.16.840.1.022617.3.579. 2.1286 1989 Unknown [id number] 2.16.840.1.912340.3.579. 2.1286 1989 Unknown [id number] 2.16.840.1.888429.3.579. 2.1286 1989 Unknown [id number] 2.16.840.1.245595.3.579. 2.6 1989 Unknown [id number] 2.16.840.1.698178.3.579. 2.6 1989 Unknown [id number] 2.16.840.1.932111.3.579. 2.1286 1989 Unknown [id number] 2.16.840.1.237378.3.579. 2.6 1989 Unknown [id number] 2.16.840.1.216268.3.579. 2.1286 1989 Unknown [id number] 2.16.840.1.665646.3.579. 2.1286 1989 Unknown [id number] 2.16.840.1.915774.3.579. 2.1286 1989 Unknown [id number] 2.16.840.1.283477.3.579. 2.1286 1989 Unknown [id number] 2.16.840.1.742285.3.579. 2.6 1989 Unknown [id number] 2.16.840.1.926778.3.579. 2.1286 1989 Unknown [id number] 2.16.840.1.726853.3.579. 2.1286 1989 Unknown [id number] 2.16.840.1.632448.3.579. 2.1286 1989 Unknown [id number] 2.16.840.1.352111.3.579. 2.1286 1989 Unknown [id number] 2.16.840.1.295732.3.579. 2.1286 1989 Unknown [id number] 2.16.840.1.108808.3.579. 2.1286 1989 Unknown [id number] 2.16.840.1.712924.3.579. 2.1286 1989 Unknown [id number] 2.16.840.1.149806.3.579. 2.9 1989 Unknown [id number] 2.16.840.1.107674.3.579. 2.9 1989 Unknown [id number] 2.16.840.1.104383.3.579. 2.9 1989 Unknown [id number] 2.16.840.1.137246.3.579. 2.9 1989 Unknown [id number] 2.16.840.1.733921.3.579. 2.9 1989 Unknown [id number] 2.16.840.1.795681.3.579. 2.9 1989 Unknown [id number] 2.16.840.1.989347.3.579. 2.1259 1989 Unknown [id number] 2.16.840.1.834001.3.579. 2.9 1989 Unknown [id number] 2.16.840.1.189747.3.579. 2.1259 1960 Private Health Insurance [id number] Social History Date Type Detail Facility Start: 12-27-2021 End: 10-09-2022 Tobacco smoking status [facility] Never smoked tobacco [facility] Start: 12-27-2021 End: 10-09-2022 Tobacco use and exposure Smokeless tobacco non-user [facility] Start: 01-23-2024 End: 05-12-2024 Alcoholic beverage intake Lifetime non-drinker (finding) [facility] Start: 02-29-2020 End: 09-15-2023 History of Social function [facility] Start: 02-29-2020 End: 09-15-2023 Tobacco use panel [facility] Start: 11-19-2023 [facility] Start: 1990 Sex assigned at Female [facility] Start: 09-12-2022 Gender identity Identifies as female gender (finding) [facility] Start: 09-12-2022 Sexual orientation Heterosexual (finding) [facility] Start: 01-31-2024 End: 05-06-2024 Alcoholic beverage intake [...] (FOLVITE) 1,000 mcg, Oral, Every morning HYDROcodone-acetaminophen (Smithwick) 5-325 MG tablet 1 tablet, Oral, Every [...] nursing note reviewed. Exam conducted with a patternator present. Vitals: Estimated body mass index is [...] Parish Valdez DO documented in this encounter [facility] 05-24-2024 History of Present illness Narrative Infusion start time: 1050 am Patient here for Avsola infusion. Patient denies any recent infections or on antibiotics, open wounds, recent/future surgery, vaccinations or insurance changes. IV started with 22g needle to right arm by Yaquelin Barba RN x1 attempt. Patient tolerated well. Avsola Lot# [id number] Exp- 10/11/2027 Time out performed prior to medication administration. Name, , medication(s) verified 1253 patient infusion complete. IV flushed with 20 ml normal saline. IV discontinued, catheter intact, vitals WNL. Patient tolerated infusion well documented in this encounter [facility] [employer] 05-14-2024 Miscellaneous Notes Spoke with patient about [...] to mild mitral and pulmonic regurgitation and rxku-en-qfrdzffd tricuspid regurgitation which would be the cause for her heart murmur Plan: No further evaluation is necessary at this time. documented in this encounter [facility] 05-14-2024 Telephone encounter Note Spoke with patient [...] to mild mitral and pulmonic regurgitation and lgeb-xy-cfiymngt tricuspid regurgitation which would be the cause for her heart murmur Plan: No further evaluation is necessary at this time. [facility] 05-12-2024 History of Present illness Narrative Reason [...] (FOLVITE) 1,000 mcg, Oral, Every morning HYDROcodone-acetaminophen (Smithwick) 5-325 MG tablet 1 tablet, Oral, Every [...] nursing note reviewed. Exam conducted with a patternator present. Vitals: Estimated body mass index is [...] of: SIMI Frazier documented in this encounter [facility] 05-06-2024 Evaluation + Plan note Associated Problem(s): Anemia affecting fourth Patient with history of anemia and iron malabsorption due to chronic inflammatory bowel disease. Hemoglobin on 05/04 was 9.4 begin iron supplement that she had been prescribed. Advised patient that some of her symptoms of shortness of breath and tachycardia could be a result of low hemoglobin levels during [facility] 05-06-2024 Miscellaneous Notes Associated Problem(s): Anemia affecting [...] seek medical care. documented in this encounter [facility] 05-06-2024 Evaluation + Plan note Associated [...] or chest pain to seek medical care. [facility] 05-06-2024 History of Present illness Narrative Images from the original note were not included. [facility] [address] [place] [address] [place] [address] Patient: Juan Luis Storey Date of : 1990 Encounter Date: 05/06/2024 Subjective: Chief Complaint Chief Complaint Patient presents with Er Follow-up History of Present Illness Juan Luis Storey is a 33 y.o. female, established patient, that presents to the office for ER follow up for elevated blood pressure in patient Hypertension Chronicity: Seen at [facility] on 05/04/24 for shortness of breath, palpitations [...] obstruction (CMS-HCC) 10/17/2017 Chronic diarrhea Colon stricture ([facility]) 04/02/2018 Crohn's colitis (CMS-HCC) Crohn's disease ([facility]) Crohn's disease of both small and large intestine with intestinal obstruction ([facility]) 03/03/2018 Current chronic use of systemic steroids 03/03/2018 Depression Diarrhea 10/17/2017 Added automatically from request for surgery [id number] Difficulty sleeping 01/13/2019 Gall stones History of [...] 10/21/2017 Performed by Sharda Montiel MD at [facility] COLONOSCOPY w/ Bx's & polypectomy N/A 10/08/2021 Performed by Sharda Montiel MD at [facility] ENDOSCOPY EGD N/A 04/02/2018 Performed by Darshana Rae MD at [facility] LAPAROSCOPIC ILEOCECECTOMY, TAKE DOWN OF ILEODUDENAL FISTULA, DRAINAGE OF RETROPERITONEAL ABSCESS, OMENTAL PEDICLE FLAP N/A 04/02/2018 Performed by Jonathan Bautista MD at [facility] Family History Problem Relation Age [...] 05/06/24 1:03 PM documented in this encounter [facility] 05-06-2024 Instructions Raulito Jimenez DO - 05/06/2024 [...] sent through Care Everywhere.High blood pressure and ([place])documented in this encounter [facility] 04-26-2024 History of Present illness Narrative Reason [...] (FOLVITE) 1,000 mcg, Oral, Every morning HYDROcodone-acetaminophen (Smithwick) 5-325 MG tablet 1 tablet, Oral, Every [...] nursing note reviewed. Exam conducted with a patternator present. Vitals: Estimated body mass index is [...] disease with complication, unspecified gastrointestinal tract location ([facility]) K50.919 Return OB: Patient presents today for [...] She does report she has spoken to [facility] [employer] but does not yet have a scheduled appointment but will reach back out to them to schedule related to non visualized stomach during anatomy scan. Documented by Kimi Simmons NP on behalf of: Parish Valdez DO documented in this encounter [facility] 04-19-2024 Miscellaneous Notes Biologic team, please [...] OV note and fax it to her financial service rep, Dr. Parish Valdez DO at [facility]. Thank you. Faxed to [phone] Zymfentra 120mg/ml PA was sent to plan via [facility] Schneider number: [id number] documented in this encounter [facility] [...] OV note and fax it to her financial service rep, Dr. Parish Valdez DO at [facility]. Thank you. [facility] 04-19-2024 Telephone encounter Note Faxed to [phone] [facility] 04-19-2024 Telephone encounter Note Zymfentra 120mg/ml PA was sent to plan via [facility] Schneider number: [id number] [facility] 04-19-2024 History of Present illness Narrative Infusion start time: 11:10 am Patient here for her Avsola infusion. Patient denies any recent infections or on antibiotics, open wounds, recent/future surgery, vaccinations or insurance changes. 10:50 am IV started with 22g needle to left AC by JAD Arroyo x1 attempt. Patient tolerated well. Avsola x 4 vials Lot# [id number] Exp- 09/10/2027 Time out performed prior to medication administration. Name, , medication(s) verified 1310 patient infusion complete. IV flushed with normal saline. 1313 IV discontinued, catheter intact, vitals WNL. Patient tolerated infusion well documented in this encounter [facility] 04-19-2024 History of Present illness Narrative [facility] Follow Up Visit [...] 10/17/2017 Added automatically from request for surgery [id number] Difficulty sleeping 01/13/2019 Gall stones History of [...] 10/21/2017 Performed by Sharda Montiel MD at [facility] COLONOSCOPY w/ Bx's & polypectomy N/A 10/08/2021 Performed by Sharda Montiel MD at [facility] ENDOSCOPY EGD N/A 04/02/2018 Performed by Darshana Rae MD at [facility] LAPAROSCOPIC ILEOCECECTOMY, TAKE DOWN OF ILEODUDENAL FISTULA, DRAINAGE OF RETROPERITONEAL ABSCESS, OMENTAL PEDICLE FLAP N/A 04/02/2018 Performed by Jonathan Bautista MD at [facility] SOCIAL HISTORY: Social History Tobacco [...] VITAMIN B12: Lab Results Component Value Date [id number] 01/26/2024 FOLATE: Lab Results Component Value [...] a hysterectomy has been advised by her women's apparel salesperson, but that she was not ready to proceed. 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 [address] units q.week x8 and then back to [...] findings of the ongoing PIANO study, The [place] Consensus Statements for the Management of Inflammatory Bowel Disease in , and the clinical care pathway released by the AGA. - AGA clinical practice update on -related gastrointestinal and liver disease: expert review (Gastroenterology. 2023;167(5):2056-6540). - Johnathan Farr, Rey Johnson, Ama N, et al. Inflammatory bowel disease in clinical care pathway: a report from the [place] gastroenterological association [facility]renthood project working group. Gastroenterology. 2019;156(5):9328-5222. - Johnathan Farr, Yady BROWN, Lobito CD. [...] and strongly recommended annual f/u with a incinerator plant laborer and regular use of skin protection -- [...] procedures Referring and communicating with other health floor care technician (not separately reported) Documenting clinical information in [...] for your understanding. Camila Montiel MD, [place] [address] PH: [phone] Juan Luis was seen today for follow-up. [...] typically a series of 2 injections 3. administrative support technician high dose vitamin D from the pharmacy Preventative Health Maintenance for Crohn's and ulcerative colitis -- Skin cancer prevention: I recommend annual follow up with a incinerator plant laborer and regular use of skin protection given the increased risk of skin cancer, especially in patients on immunomodulator (Imuran / azathioprine / 6MP) or biologic medications (Remicade, Humira, Enyvio) -- Cervical cancer prevention: I recommend annual follow up with your financial service rep doctor with annual pap smears -- Tobacco [...] would be interested in meeting with a fabricator assembler metal products please let me or your family doctor [...] the role of diet in IBD: [email or web address].[email or web address] rg/client_ed.cfm?[facility]_client_ed_id =181 documented in this encounter [facility] 04-14-2024 History of Present illness Narrative [...] nursing note reviewed. Exam conducted with a patternator present. Vitals: Estimated body mass index is [...] Parish Valdez DO documented in this encounter [facility] 03-17-2024 History of Present illness Narrative [...] obtained without difficulty and patient was given [facility] order to have obtained. Orders Placed This Encounter Procedures US OB 14+ weeks anatomy scan CHLAMYDIA TRACHOMATIS (GENITO/STI) Neisseria gonorrhea DNA probe, direct Alpha fetoprotein, maternal Follow Up: Patient is to return to our office in 4 weeks for routine OB appointment Documented by SIMI Frazier on behalf of: SIMI Frazier documented in this encounter [facility] 03-08-2024 History of Present illness Narrative Infusion start time: 1040 Patient here for Avsola infusion. Patient denies any recent infections or on antibiotics, open wounds, recent/future surgery, vaccinations or insurance changes. IV started with 22g needle to left forearm by Yaquelin Barba RN x1 attempt. Patient tolerated well. Avsola Lot# [id number] 2vials - 09/10/2027 Lot#[id number] 2 vials Exp08/10/2027 Time out performed prior [...] nursing note reviewed. Exam conducted with a patternator present. Vitals: Estimated body mass index is [...] or undercooked meat, and stay away from [facility]. Patient has been consulted regarding [...] Parish Valdez DO documented in this encounter [facility] 01-23-2024 History of Present illness [...] Diagnosis Date Acute Crohn's disease with complication (CMS/[facility]) At standard risk for fall BMI 25.0-25.9,adult [...] or undercooked meat, and stay away from [facility]. Patient has also been advised [...] Veronica Klein LPN documented in this encounter [facility] 12-17-[address] Montiel, [...] send a letter to the family doctor/PCP, Operations Welder, and tufter hand advising against the use of live vaccines for the 1st 6 months of the baby's life and to monitor the baby closely for any signs of infection. Please send her the following as well: https://www.crohnscolitisfoundati on.org/blog/wvspr-hprcl-kwprkg-ho yp-rat-uiqehze-mo-jqoxbnxqacv-qqw -ghwnzmk-eba-liuj I recommend an OV w me in 02/2024 or 03/2024 Please disregard notes below. Summary These recommendations are in accordance with the findings of the ongoing PIANO study, The [place] Consensus Statements for the Management of Inflammatory [...] clinical care pathway: a report from the [place] gastroenterological association ibd parenthood project working group. Gastroenterology. 2019;156(5):5450-2978. Spoke with patient regarding recommendations, sent via [employer]. Will call patient back when March schedule is out, she needs Mondays. [facility] Montiel, Patient called stating she took a urine test this past Friday and it was positive. She receives Inflectra 400 mg every 6 weeks for her Crohn's. She also takes Imuran 150 mg po daily. Ilesha is inquiring if she can continue taking her Imuran and Inflectra infusions? Please advise, thank you [facility] 12-17-2023 Telephone encounter Note Please let her [...] send a letter to the family doctor/PCP, Operations Welder, and tufter hand advising against the use of live vaccines for the 1st 6 months of the baby's life and to monitor the baby closely for any signs of infection. Please send her the following as well: [email or web address].crohnscolitisfoundati on.org/blog/lxxeu-sbmep-itznic-ho qi-kjy-hksueik-ek-enmnznyvaoy-phz -fctxzsq-pfa-qwyu I recommend an OV w me in 02/2024 or 03/2024 Please disregard notes below. Summary These recommendations are in accordance with the findings of the ongoing PIANO study, The [place] Consensus Statements for the Management of Inflammatory [...] clinical care pathway: a report from the [place] gastroenterological association ibd parenthood project working group. Gastroenterology. 2019;156(5):0478-3154. [facility] 12-17-2023 Telephone encounter Note Spoke with patient regarding recommendations, sent via [employer]. Will call patient back when March schedule is out, she needs Mondays. [facility] 12-12-2023 History of Present illness Narrative Infusion start time: 10:50 am Patient here for Inflectra infusion. Patient denies any recent infections or on antibiotics, open wounds, recent/future surgery, vaccinations or insurance changes. 10:30 am IV started with 22g needle to right hand by JAD Arroyo x1 attempt. Patient tolerated well. Inflectra x 4 vials Lot# [id number] Exp- 04/09/2028 Time out performed prior to medication administration. Name, , medication(s) verified 11:50 am patient infusion complete. IV flushed with 10 ml normal saline. IV discontinued, catheter intact, vitals WNL. Patient tolerated infusion well documented [facility] 12-01-2023 History of Present illness Narrative Images from the original note were not included. [facility] [address] [place] [phone] 12/01/2023 Chief Complaint Patient presents with [...] small and large intestine with intestinal obstruction ([facility]) Other Visit Diagnoses Iron deficiency - Primary [...] procedures Referring and communicating with other health floor care technician (not separately reported) Documenting clinical information in the electronic or other health record Independently interpreting results (not separately reported) and communicating results to the patient/family/caregiver Care coordination (not separately reported) ---- Please note that portions of this note may have been generated using voice recognition Oversi dictation software. Although every effort was made to ensure the accuracy of any automated transcriptions, some errors may have occurred. TERA Leyva 12/01/23 1502 documented in this encounter [facility] 12-01-2023 Instructions TERA Leyva - 12/01/2023 2:30 PM EDT Pending labs If iron is low, will order Injectafer IV If iron is low, will repeat labs in 3 months CBC-d iron panel ferritin If iron is normal, just follow up yearly as below Follow up yearly with labs same as above documented in this encounter [facility] 10-31-2023 History of Present illness Narrative IV Infusion start time: 944. Patient here for Inflectra infusion. Patient denies any recent infections or on antibiotics, open wounds, recent/future surgery, vaccinations or insurance changes. IV started with 22g needle to left hand by JAD Arroyo x1 attempt. Patient tolerated well. Inflectra x 4 vials Lot# [id number] Exp- [id number] Time out performed prior to medication administration. Name, , medication(s) verified 11:13 am patient infusion complete. IV discontinued, catheter intact, vitals WNL. Patient tolerated infusion well documented in this encounter [facility] 10-31-2023 History of Present illness Narrative [facility] Follow Up Visit [...] 10/17/2017 Added automatically from request for surgery [id number] Difficulty sleeping 01/13/2019 Gall stones History of [...] 10/21/2017 Performed by Sharda Montiel MD at [facility] COLONOSCOPY w/ Bx's & polypectomy N/A 10/08/2021 Performed by Sharda Montiel MD at [facility] ENDOSCOPY EGD N/A 04/02/2018 Performed by Darshana Rae MD at [facility] LAPAROSCOPIC ILEOCECECTOMY, TAKE DOWN OF ILEODUDENAL FISTULA, DRAINAGE OF RETROPERITONEAL ABSCESS, OMENTAL PEDICLE FLAP N/A 04/02/2018 Performed by Jonathan Bautista MD at [facility] SOCIAL HISTORY: Social History Tobacco [...] VITAMIN B12: Lab Results Component Value Date [id number] 1,378 (H) 08/02/2021 FOLATE: Lab Results Component [...] a hysterectomy has been advised by her women's apparel salesperson, but that she was not ready to proceed. 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 [address] units q.week x8 and then back to [...] and strongly recommended annual f/u with a incinerator plant laborer and regular use of skin protection -- [...] procedures Referring and communicating with other health floor care technician (not separately reported) Documenting clinical information in [...] for your understanding. Camila Montiel MD, MPH [facility] [place] [address] PH: [phone] Juan Luis was seen today for follow-up. Diagnoses and all orders for this visit: Therapeutic drug monitoring - Thiopurine Metabs; Future - Basic Metabolic Panel; Future - Liver panel; Future - CBC without diff; Future Crohn's disease of both small and large intestine with other complication ([facility]) - Calprotectin, F; Future - C-reactive protein; [...] in the morning. documented in this encounter [facility] 10-31-2023 Instructions Sharda Montiel MD - [...] I recommend annual follow up with a incinerator plant laborer and regular use of skin protection given the increased risk of skin cancer, especially in patients on immunomodulator (Imuran / azathioprine / 6MP) or biologic medications (Remicade, Humira, Enyvio) -- Cervical cancer prevention: I recommend annual follow up with your financial service rep doctor with annual pap smears -- Tobacco [...] would be interested in meeting with a fabricator assembler metal products please let me or your family doctor [...] the role of diet in IBD: [email or web address].nutritioncaremanual.o rg/client_ed.cfm?[facility]_client_ed_id =[email or web address] documented in this encounter [facility] 09-17-2023 History of Present illness Narrative [...] her care. She is currently at [facility]. She is in a vegetative state. [...] of major depressive disorder without prior episode ([facility]) - citalopram (CeleXA) 20 mg tablet; Take 1.5 tablets (30 mg total) by mouth in the morning. Crohn's disease of both small and large intestine with intestinal obstruction ([facility]) TERA Church 09/17/23 1443 documented in this encounter [facility] 09-15-2023 Miscellaneous Notes Refill infusion orders received; approved for now. Must make 10/31/23 OV or can no longer receive infusions here until she is seen. Tried to call patient, busy signal. Sent [employer] message. Patient called. Updated. She verbalized understanding Thank You documented in this encounter [facility] 09-15-2023 Telephone encounter Note Refill infusion orders received; approved for now. Must make 10/31/23 OV or can no longer receive infusions here until she is seen. [facility] 09-15-2023 Telephone encounter Note Tried to call patient, busy signal. Sent [employer] message. [facility] 09-15-2023 Telephone [...] tolerated well. Inflectra x 4 vials Lot# [id number] Exp- [id number] Time out performed prior to medication administration. Name, , medication(s) verified 12:10 pm patient infusion complete. IV discontinued, catheter intact, vitals WNL. Patient tolerated infusion well documented in this encounter [facility] 09-03-2023 Miscellaneous Notes Patient presented to front office specialist window and paid for FMLA today. FMLA faxed. documented in this encounter [facility] 09-03-2023 Telephone encounter Note Patient presented to front office specialist window and paid for FMLA today. FMLA faxed. [facility] 09-03-2023 History of Present illness Narrative Video Visit via Real-time Synchronous Audiovisual Provider Location: [facility] [address] [place] [phone] Patient Location: Patient's home Video Visit Consent [...] that there are some limitations compared to ntlh-sp-nohy evaluations. The patient consented to the presence [...] on 09/17/2023 for depression [facility] 09/03/23 [id number] documented in this encounter [facility] 08-20-2023 History of Present illness Narrative [...] tolerated well. Inflectra x 4 vials Lot# [id number] Exp- [id number] Time out performed prior to medication administration. [...] 06/10/23). No show policy letter sent via [employer] and certified mail. documented in this encounter [...] Note No show policy letter sent via [employer] and certified mail. [facility] [...] tolerated well. Inflectra x 4 vials Lot #[id number] Exp date 12/11/2027 Time out performed with [...] patient and RN rescheduled patient for 04/21/2023. [email or web address] 03-31-2023 Miscellaneous Notes RN was told that patient is calling regarding her insurance. The phone call was then transferred back to the infusion room. Patient states she lost her secondary insurance and wanted to know to what the amount she will be responsible for. RN informed patient to call her insurance company to find out that information. documented in this encounter [email or web address] 03-31-2023 Telephone encounter Note RN was told that patient is calling regarding her insurance. The phone call was then transferred back to the infusion room. Patient states she lost her secondary insurance and wanted to know to what the amount she will be responsible for. RN informed patient to call her insurance company to find out that information. [email or web address] 02-20-2023 History of Present illness Narrative Images from the original note were not included. [address] [place] [phone] Patient: Juan Luis Storey Date of [...] ANDERS MD Family Medicine Physician [facility] / [facility] 02/20/23 This note was completed [...] right hand. Patient tolerated well. Lot # [id number] Exp 07/11/27 1422 patient infusion complete. IV [...] in stable condition. documented in this encounter [facility] Evaluation note Diagnosis Missed menses , unspecified gestational age Encounter for supervision of normal first in first trimester headache in first trimester [facility] Diagnosis Therapeutic drug monitoring- Primary Encounter for therapeutic drug monitoring documented [facility]* Diagnosis Second trimester state, incidental 15 weeks gestation of H/O oligohydramnios in prior , currently documented in [facility] encounter [facility]* Diagnosis Crohn's disease of both small and large intestine with intestinal obstruction (CMS-HCC)- Primary [facility] Diagnosis Second trimester state, incidental 19 weeks gestation of Vaginal discharge Leukorrhea, not specified as infective STD exposure Screening, , for anatomic survey Encounter for anatomic survey documented in this encounter [facility]* Diagnosis 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 deficiency anemia, unspecified Iron malabsorption Other specified intestinal malabsorption [facility] Diagnosis Crohn's disease of both small and large intestine with intestinal obstruction (CMS-HCC)- Primary documented in [facility] encounter [facility]* Diagnosis Crohn's disease of both small and large intestine with intestinal obstruction (CMS-HCC)- Primary [facility]* Diagnosis Reactive airway disease with acute exacerbation, unspecified asthma severity, unspecified whether persistent- Primary Shortness of breath COVID-19 Sinusitis, unspecified chronicity, unspecified location [facility]* Diagnosis Crohn's disease of both small and large intestine with intestinal obstruction (CMS-HCC)- Primary documented in [facility] encounter [facility]* Diagnosis Anxiety- Primary Anxiety state, unspecified documented in this encounter [facility]* Diagnosis Crohn's disease of both small and large intestine with intestinal obstruction (CMS-HCC)- Primary documented in this encounter [facility]* Diagnosis Reactive depression- Primary [facility] Diagnosis Crohn's disease of both small and large intestine with intestinal obstruction (CMS-HCC)- Primary [facility]* Diagnosis Current moderate episode of major depressive disorder without prior episode (CMS-HCC)- Primary Crohn's disease of both small and large intestine with intestinal obstruction (CMS-HCC) documented [facility]* Diagnosis Therapeutic drug monitoring- Primary Encounter for therapeutic drug monitoring Crohn's disease of both small and large intestine with other complication (CMS-HCC) documented in [facility] encounter [facility]* Diagnosis Crohn's disease of both small and large intestine with intestinal obstruction (CMS-HCC)- Primary documented in this encounter [facility]* Diagnosis Iron deficiency- Primary [...] anemia, unspecified documented in this encounter [facility]* Diagnosis Crohn's disease of both small and large intestine with intestinal obstruction (CMS-HCC)- Primary documented in this encounter [facility]* Diagnosis 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 Other specified intestinal malabsorption Iron deficiency anemia, unspecified documented in this encounter [facility]* Diagnosis Diabetes mellitus screening Screening for diabetes mellitus Second trimester state, incidental 23 weeks gestation of documented in this encounter [facility]* Diagnosis Thrombocytopenia (CMS-HCC)- Primary Unspecified thrombocytopenia Crohn's disease with complication, unspecified gastrointestinal tract location (CMS-HCC) documented in this encounter [facility]* Diagnosis Crohn's disease of colon with other complication (CMS-HCC)- Primary documented in [facility] encounter [facility]* Diagnosis Ulcerative colitis with other complication, unspecified location (CMS-HCC)- Primary documented in this encounter [facility]* Diagnosis Second trimester state, incidental 23 weeks gestation of Crohn's disease with complication, unspecified gastrointestinal tract location (CMS/HCC) documented in this encounter [facility]* Diagnosis HTN complicating peripregnancy, antepartum, second trimester- Primary 26 weeks gestation of Anemia affecting fourth HTN, goal below 130/80 documented in this encounter [facility]* Diagnosis Second trimester state, incidental 27 weeks gestation of documented in this encounter [facility]* Diagnosis HTN complicating peripregnancy, antepartum, second trimester- Primary 26 weeks gestation of Anemia affecting fourth HTN, goal below 130/80 Crohn's disease of both small and large intestine with intestinal obstruction (CMS-HCC)- Primary documented in this encounter [facility]* Diagnosis Third trimester state, incidental History of Crohn's disease 29 weeks gestation of documented in this encounter [facility] HealthcareInstructionsNot on filedocumented in this [facility] on filedocumented in this [facility]ructionsNot on filedocumented in this encounter[facility] SystemInstructionsNot on filedocumented in this [facility] InstructionsNot on filedocumented in this [facility] InstructionsNot on filedocumented in this [facility] InstructionsNot on filedocumented in this [facility] InstructionsNot on filedocumented in this [facility] Instructions* Attachments The following attachments cannot be sent through Care Everywhere. * Anxiety Discharge Instructions, Adult ([place]) [facility]Not on file documented in this [facility] documented [facility] this [facility]* Attachments The following attachments cannot be sent through Care Everywhere. * Depression ([place]) [facility] documented in this [facility] documented in this [facility] documented in this [facility] Summary Purpose Family History No [...] section and content) DATE CREATED AUTHOR 08/05/2017 [facility] DATE CREATED AUTHOR AUTHOR'S ORGANIZ ATION 06/26/2022 [facility] DATE CREATED AUTHOR AUTHOR'S ORGANIZ ATION 05/07/2024 [facility] DATE CREATED AUTHOR AUTHOR'S ORGANIZ ATION 05/15/2024 [facility] DATE CREATED AUTHOR AUTHOR'S ORGANIZ ATION 05/25/2024 [facility] DATE CREATED AUTHOR AUTHOR'S ORGANIZ ATION 05/28/2024 [facility] Reason for Visit (unrecogniz ed section and content) Reason Comments Amenorrhea Reason Comments Routine Visit Reason Comments Outpatient Infusion Crohn's Disease Avsola Specialty Diagnoses / Procedures Referred By Carroll t Referred To Contact Gastroenterology Diagnoses Crohn's disease of both small and large intestine with intestinal obstruction Asola 5mg/kg (400mg) every 6 weeks/ Auth'd 01.20.24 - 01.18.25/ visits/ [id number] Dr. Montiel NO ACCELERATED INFUSION Procedures INJECTION, INFLIXIMAB-AXXQ, BIOSIMILAR, (AVSOLA), 10 MG INFUSION Hilary Aviles, SENIOR PRODUCT DEVELOPMENT ENGINEER-NEWS PRODUCTION ASSISTANT [address], [place] [address] Phone: tel: fax: [facility] [address] [place], [place] [phone] Phone: tel: fax: Referral ID Status Reason Start Date Expiration Date V isits Requested Visits Authorized [id number] Authorized 01/20/2024 01/18/2025 9 9 Reason Comments Outpatient Infusion Injectafer Specialty Diagnoses / Procedures Referred By Contac t Referred To Contact Diagnoses Iron deficiency anemia due to chronic blood loss Iron deficiency anemia, unspecified Iron malabsorption Procedures CO INJ FERRIC CARBOXYMALTOS 1MG Mj Pizarro MD [address] [facility] [address] [place] [address] Pfo Med Onc [address] [place] [phone] Referral ID Status Reason Start Date Expiration Date V isits Requested Visits Authorized [id number] Authorized 01/24/2023 07/23/2023 2 2 Reason Comments Outpatient Infusion Inflectra Specialty Diagnoses / Procedures Referred By Contac t Referred To Contact Gastroenterology Diagnoses Crohn's disease of both small and large intestine with intestinal obstruction Inflectra 5mg/kg every 6 weeks, Auth'd for 9 visits 6.16.23-6.15.24, SA/Crohns Procedures CO INFLIXIMAB INJECTION INFUSION Hilary Aviles, SENIOR PRODUCT DEVELOPMENT ENGINEER-NEWS PRODUCTION ASSISTANT [address], [place] [address] [facility] [address] [address] Referral ID Status Reason Start Date Expiration Date V isits Requested Visits Authorized [id number] Pending Review 07/26/2022 07/26/2023 9 9 Reason Comments Asthma Reason Comments Outpatient Infusion inflectra Specialty Diagnoses / Procedures Referred By Contac t Referred To Contact Gastroenterology Diagnoses Crohn's disease of both small and large intestine with intestinal obstruction Procedures CO INFLIXIMAB INJECTION Referral ID Status Reason Start Date Expiration Date V isits Requested Visits Authorized [id number] Authorized 04/01/2023 04/01/2024 9 9 Reason Comments Mental Health Problem Reason Comments FMLA Reason Comments Anxiety Depression Reason Comments Follow-up Patient is here for a follow up and denies any issues. Reason Comments Follow-up Specialty Diagnoses / Procedures Referred By Carroll t Referred To Contact Gastroenterology Diagnoses Crohn's disease of both small and large intestine with intestinal obstruction Procedures CO INFLIXIMAB INJECTION Reason Comments Outpatient Infusion Specialty Diagnoses / Procedures Referred By Carroll t Referred To Contact Gastroenterology Diagnoses Crohn's disease of both small and large intestine with intestinal obstruction Asola 5mg/kg (400mg) every 6 weeks/ Auth'd 01.20.24 - 01.18.25/ visits/ [id number] Dr. Montiel NO ACCELERATED INFUSION Procedures INJECTION, INFLIXIMAB-AXXQ, BIOSIMILAR, (AVSOLA), 10 MG INFUSION Hilary Aviles, SENIOR PRODUCT DEVELOPMENT ENGINEER-NEWS PRODUCTION ASSISTANT [address] [facility] [address], [place] [address] Phone: tel: fax: [facility] [address] [address] Phone: tel: fax: Reason Comments Er Follow-up Specialty Diagnoses / Procedures Referred By Carroll juan Referred To Contact Diagnoses Crohn's disease of both small and large intestine with intestinal obstruction ([facility]) Sharda Montiel MD [address] [facility] [place] [address] Phone: tel: fax: [facility] [address] [address] Phone: tel: fax: Referral ID Status Reason Start Date Expiration Date V isits Requested Visits Authorized [id number] Pending Review 01/21/2024 01/20/2025 1 1 Care Teams (unrecognized sec tion and content) Activity Therapist Relationship Specialty Start Date End Date Hilary Aviles MD [address] [place] [address] Referring Physician Nurse Practitioner 10/08/22 Activity Therapist Relationship Specialty Start Date End Date Hilary Aviles APRN-NEWS PRODUCTION ASSISTANT [address], [place] [address] PCP - General Family Medicine 01/03/24 Activity Therapist Relationship Specialty Start Date End Date Hilary Aviles MD [address] [place] [place] [address] Referring Physician Nurse Practitioner 10/08/22 Activity Therapist Relationship Specialty Start Date End Date Hilary Aviles MD [address] [facility] [address] [place] [address] Referring Physician Nurse Practitioner 10/08/22 Activity Therapist Relationship Specialty Start Date End Date Hilary Aviles MD [address] [place] [address] [place] [address] Referring Physician Nurse Practitioner 10/08/22 Activity Therapist Relationship Specialty Start Date End Date Hilary Aviles APRN-NEWS PRODUCTION ASSISTANT [address], [place] [address] PCP - General Family Medicine 01/03/24 Activity Therapist Relationship Specialty Start Date End Date Hilary Aviles MD [address] [place] [address] Referring Physician Nurse Practitioner 10/08/22 Activity Therapist Relationship Specialty Start Date End Date Hilary Aviles MD [address] [place] [place] [address] Referring Physician Nurse Practitioner 10/08/22 Activity Therapist Relationship Specialty Start Date End Date Hilary Aviles MD [address] [place] [address] Referring Physician Nurse Practitioner 10/08/22 Activity Therapist Relationship Specialty Start Date End Date Hilary Aviles [facility] [address], [place] [address] PCP - General Family Medicine 12/26/22 Activity Therapist Relationship Specialty Start Date End Date Hilary Aviles [facility] [address], [place] [address] PCP - General Family Medicine 12/26/22 Activity Therapist Relationship Specialty Start Date End Date Hilary Aviles [facility] [address], [place] [address] PCP - General Family Medicine 12/26/22 Activity Therapist Relationship Specialty Start Date End Date Hilary Aviles [facility] [address], [place] [address] PCP - General Family Medicine 12/26/22 Activity Therapist Relationship Specialty Start Date End Date Hilary Aviles [facility] [address], [place] [address] PCP - General Family Medicine 12/26/22 Activity Therapist Relationship Specialty Start Date End Date Hilary Aviles [facility] [address], [place] [address] PCP - General Family Medicine 12/26/22 Activity Therapist Relationship Specialty Start Date End Date Hilary Aviles [facility] [address], [place] [address] PCP - General Family Medicine 12/26/22 Activity Therapist Relationship Specialty Start Date End Date Hilary Aviles [facility] [address], [place] [address] PCP - General Family Medicine 12/26/22 Activity Therapist Relationship Specialty Start Date End Date Hilary Aviles [facility] [address], [place] [address] PCP - General Family Medicine 12/26/22 Activity Therapist Relationship Specialty Start Date End Date Hilary Aviles [facility] [address], [place] [address] PCP - General Family Medicine 12/26/22 Activity Therapist Relationship Specialty Start Date End Date Hilary Aviles SENIOR PRODUCT DEVELOPMENT ENGINEERLOVERING [facility]ON[facility] [address], [place] [address] PCP - General Family Medicine 12/26/22 Activity Therapist Relationship Specialty Start Date End Date Hilary Aviles [facility] [address], [place] [address] PCP - General Family Medicine 12/26/22 Activity Therapist Relationship Specialty Start Date End Date Hilary Aviles [facility] [address], [place] [address] PCP - General Family Medicine 12/26/22 Activity Therapist Relationship Specialty Start Date End Date Hilary Aviles [facility] [address], [place] [address] PCP - General Family Medicine 12/26/22 Activity Therapist Relationship Specialty Start Date End Date Hilary Aviles [facility] [address], [place] [address] PCP - General Family Medicine 01/03/24 Activity Therapist Relationship Specialty Start Date End Date Hilary Aviles [facility] [address], [place] [address] PCP - General Family Medicine 01/03/24 Activity Therapist Relationship Specialty Start Date End Date Hilary Aviles MD [address] [place] [address] Referring Physician Nurse Practitioner 10/08/22 Activity Therapist Relationship Specialty Start Date End Date Hilary Aviles [facility] [address], [place] [address] PCP - General Family Medicine 01/03/24 Activity Therapist Relationship Specialty Start Date End Date Hilary Aviles APRN-NEWS PRODUCTION ASSISTANT [address], [place] [address] PCP - General Family Medicine 01/03/24 Activity Therapist Relationship Specialty Start Date End Date Hilary Aviles APRN-NEWS PRODUCTION ASSISTANT [address], [place] [address] PCP - General Family Medicine 01/03/24 Activity Therapist Relationship Specialty Start Date End Date Hilary Aviles MD [address] [place] [address] Referring Physician Nurse Practitioner 10/08/22 Activity Therapist Relationship Specialty Start Date End Date Hilary Aviles APRN-NEWS PRODUCTION ASSISTANT [address], [place] [address] PCP - General Family Medicine 01/03/24 Activity Therapist Relationship Specialty Start Date End Date Hilary Aviles MD [address] [place] [address] Referring Physician Nurse Practitioner 10/08/22 Activity Therapist Relationship Specialty Start Date End Date Hilary Aviles MD [address] [place] [address] Referring Physician Nurse Practitioner 10/08/22 Activity Therapist Relationship Specialty Start Date End Date Hilary Aviles APRN-NEWS PRODUCTION ASSISTANT [address], [place] [address] PCP - General Family Medicine 01/03/24 Activity Therapist Relationship Specialty Start Date End Date Hilary Aviles, PAUL-NEWS PRODUCTION ASSISTANT [address] [facility] [address], [place] [address] PCP - General Family Medicine 01/03/24 FOR [...] BE BASED ON THE PRIMARY CLINICAL RECORDS. [facility]. provides no warranty or guarantee of the accuracy or completeness of information in this document.
[2024-05-30] MEDS: HYDROMORPHONE HCL 0.5 MG/0.5 ML SYRINGE 1 MG IVP ×2 (07:44→11:22)
[2024-05-30] MEDS: 0.9 % SODIUM CHLORIDE 1,000 ML 125 ML IV ×2 (07:45→12:04)
[2024-05-30 08:02] LABS: Basophils Percent Auto 0.4 % (0.2-2.0); Eosinophils Absolute Auto 0.1 10^3/uL (0.0-0.7); Eosinophils Percent Auto 1.1 % (0.9-7.0); Hematocrit 27.6 % (36.0-48.0); Hemoglobin 8.6 g/dL (12.0-16.0); Immature Granulocytes Abs Auto 0.04 10^3/uL (0.00-0.03); Immature Granulocytes Pct Auto 0.8 % (0.0-0.5); Lymphocytes Absolute Auto 1.8 10^3/uL (1.2-3.8); Lymphocytes Percent Auto 33.3 % (20.5-60.0); Mean Corpuscular HGB Conc 31.2 g/dL (29.9-35.2); Mean Corpuscular Hemoglobin 29.1 pg (26.7-34.0); Mean Corpuscular Volume 93.2 fL (81.0-99.0); Mean Platelet Volume 11.8 fL (9.5-13.5); Monocytes Absolute Auto 0.5 10^3/uL (0.3-0.8); Monocytes Percent Auto 9.1 % (1.7-12.0); Neutrophils Absolute Auto 2.9 10^3/uL (1.4-6.5); Neutrophils Percent Auto 55.3 % (43.0-75.0); Platelet Count 189 10^3/uL (150-450); Red Blood Count 2.96 10^6/uL (4.20-5.40); Red Cell Distribution Width 15.5 % (11.0-15.0); White Blood Count 5.3 10^3/uL (4.0-11.0)
[2024-05-30 08:20] LABS: Alanine Aminotransferase 8 U/L (14-59); Albumin Globulin Ratio 0.7; Albumin Level 2.7 g/dL (3.4-5.0); Alkaline Phosphatase 49 U/L (46-116); Anion Gap 14.6; Aspartate Amino Transferase 14 U/L (15-37); Bilirubin Total 0.4 mg/dL (0.2-1.0); Calcium 8.7 mg/dL (8.5-10.1); Carbon Dioxide 25.9 mmol/L (21.0-32.0); Chloride 104 mmol/L (98-107); Estimated GFR (African America >60 (>=60 mL/min/1.73m^2); Estimated GFR (Non-African Ame >60 (>=60 mL/min/1.73m^2); Globulin 3.9 g/dL; Glucose 97 mg/dL (74-106); Lactate Dehydrogenase 191 U/L (81-234); Potassium 3.5 mmol/L (3.5-5.1); Sodium 141 mmol/L (136-145); Total Protein 6.6 g/dL (6.4-8.2); Uric Acid 3.4 mg/dL (2.6-6.0)
[2024-05-30 08:31] LABS: INR 0.96; Partial Thromboplastin Time 27.4 sec (22.3-36.2); Prothrombin Time 10.2 sec (9.0-11.6)
[2024-05-30] MEDS: HYDROCODONE/ACET 5-325 MG TABLET 2 TAB PO (10:58)
[2024-05-30 11:18] LABS: Bilirubin Urine NEGATIVE (NEGATIVE); Blood Urine NEGATIVE (NEGATIVE); Clarity Urine CLEAR (CLEAR); Color Urine LT. YELLOW (YELLOW); Glucose Urine UA NEGATIVE (NEGATIVE); Ketones Urine NEGATIVE (NEGATIVE); Leukocyte Esterase Urine NEGATIVE (NEGATIVE); Nitrite Urine NEGATIVE (NEGATIVE); Protein Urine NEGATIVE (NEG/TRACE)
[2024-05-30 11:20] LABS: Urine Microscopic Indicated NO
[2024-05-30 11:22] LABS: Creatinine Urine Random 100.27 mg/dL (20.00-300.00); Protein Creatinine Ratio Urine 0.22; Total Protein Urine Random 22.3 mg/dL (<=11.9)
[2024-05-30] MEDS: HYDROMORPHONE HCL 0.5 MG/0.5 ML SYRINGE 1 MG IV ×2 (13:01→14:38)
[2024-05-30 14:10] LABS: C Reactive Protein <0.50 mg/dL (<=0.50)
[2024-05-30 14:15] LABS: Erythrocyte Sedimentation Rate 26 mm/hr (<=20)
[2024-05-30] MEDS: CEFTRIAXONE 1,000 MG in 0.9 % SODIUM CHLORIDE 50 ML 100 MG IV (15:15)
[2024-05-30] MEDS: METHYLPREDNISOLONE SOD SUCC PF 125 MG/2 ML VIAL IVP (15:15)
[2024-05-30 15:43] LABS: Glucometer 106 mg/dL (74-106)
[2024-05-30 16:11] LABS: Lactate/Lactic Acid 3.1 mmol/L (0.4-2.0)
[2024-05-30] MEDS: AMPICILLIN SODIUM/SULBACTAM NA 1.5 GM in 0.9 % SODIUM CHLORIDE 50 ML IV (16:43)
[2024-05-30] MEDS: MORPHINE SULFATE 2 MG/ML SYRINGE IV (16:58)
--- NOTE | 2024-05-30 18:37 | P.IMCN_ITS ---
HPI - Internal Medicine CN Data of Consult Patient: new to practice Consult date: 05/30/24 Requesting Physician: Parish Valdez DO Primary Care Provider: Hilary Aviles NP Consult Narrative Reason for consult: Severe Abdominal Pain Narrative: 33 y o female, 29 weeks gestational age with prior hx of Crohns presented to our facility with severe generalized abdominal pain that has been ongoing for 4 days. She reports pain is persistent, progressively worsening and she is unable to get comfortable despite receiving IV dilaudid. Patient also reports poor oral intake, appetite, nausea and intermittent vomiting. She denies diarrhea and instead reported to us that she has not had a BM for 1-2 days. She was extremely uncomfortable during my exam, was moaning with pain and diaphoretic when I evaluated her. She reportedly received an IV infusion one week ago for Crohns in [place] but could not tell me what she received. She is also on Azathioprine for Crohns but is not always compliant with medication use and follow ups. Discussed with OBGYN - ok to proceed with CT abdomen pelvis to ascertain the underlying etiology of her Abdominal Pain. cc:: CC: Parish Valdez DO Review of Systems ROS Status of ROS 10 or more systems reviewed and unremark able except as noted in history and below [facility] Medical History (Updated 05/30/24 @ 20:38 by Shaikh Star MD) HTN (hypertension) ?I10 - Essential (primary) hypertension (ICD-10) Crohn disease ?K50.90 - Crohn's disease, unspecified, without complications (ICD-10) Social History Little interest or pleasure in doing things: not at all Feeling down, depressed, or hopeless: not at all Meds Home Medications and Allergies Home Medications ?Medication ?Instructions ?Recorded ?Confirmed ?Type azathioprine 50 mg tablet 150 mg PO .QD 05/30/24 05/30/24 History labetalol 100 mg tablet 100 mg PO BID 05/30/24 05/30/24 History Allergies Allergy/AdvReac Type Severity Reaction Status Date / Time No Known Drug Allergies Allergy Verified 05/04/24 21:26 Exam Constitutional Vital Signs, click to edit/add: Last Vital Signs Temp 87.8 F L 05/30/24 16:08 Pulse 83 04/20/25 14:39 BP 153/95 H 05/30/24 14:39 General appearance: cooperative, in distress severe, anxious and ill appearing Other: Uncomfortable, in severe pain Respiratory Common normals: normal respiratory effort, no use of accessory muscles and clear to auscultation bilaterally Effort & inspection: able to speak in complete sentences Cardio Common normals: no JVD, S1 normal heart sound and S2 normal heart sound Rate: tachycardic GI Inspection: abdominal distension (Due to ) and scar Auscultation: hypoactive bowel sounds Palpation: firm and tender (generalized) Extremity Common normals: normal to inspection and full ROM Neuro Common normals: oriented x3, moves all extremities and no focal motor deficits Psych Common normals: mental status grossly normal and thought process normal Internal Medicine - CN: Reslt Labs Labs: Short CBC 05/30/24 Range/Units 07:50 WBC 5.3 (4.0-11.0) 10^3/uL Hgb 8.6 L (12.0-16.0) g/dL Hct 27.6 L (36.0-48.0) % Plt Count 189 (150-450) 10^3/uL BMP 05/30/24 07:50 Sodium 141 Potassium 3.5 Chloride 104 Carbon Dioxide 25.9 BUN 4.0 L Creatinine 0.57 Glucose 97 Calcium 8.7 Liver Function 05/30/24 Range/Units 07:50 Total Bilirubin 0.4 (0.2-1.0) mg/dL AST 14 L (15-37) U/L ALT 8 L (14-59) U/L Alkaline Phosphatase 49 (46-116) U/L Albumin 2.7 L (3.4-5.0) g/dL Urine 05/30/24 Range/Units 10:55 Urine Color Lt. yellow (YELLOW) Urine Clarity Clear (CLEAR) Urine pH 7.0 (5.0-9.0) Ur Specific [place] 1.020 (1.005-1.025) Urine Protein Negative (NEG/TRACE) mg/dL Urine Glucose (UA) Negative (NEGATIVE) mg/dL Assessment and Plan Assessment and Plan (1) Exacerbation of Crohn's disease: Qualifiers: Digestive disease complication type: unspecified complication Qualified Code(s): K50.919 - Crohn's disease, unspecified, with unspecified complications (2) Intractable generalized abdominal pain: (3) Crohn disease: Qualifiers: Gastrointestinal tract location: unspecified location Digestive disease complication type: unspecified complication Qualified Code(s): K50.919 - Crohn's disease, unspecified, with unspecified complications (4) Third trimester : (5) HTN (hypertension): Qualifiers: Hypertension type: primary hypertension Qualified Code(s): I10 - Essential (primary) hypertension Plan Patient with intractable abdominal pain concerning for Crohns Exacerbation. Ordered Stat CT abd pelvis. Ordered IV dilaudid as needed for pain along with Oxycodone that was already ordered by OBGYN. Check ESR, CRP. Will empirically start on IV rocephin/Flagyl and IV solumedrol 40 TID after one time dose of 125 mg. C/wIVF. C/w zofran as needed for nausea/vomiting. Ordered labetalol for her HTN. monitoring as per OBGYN. Low threshold for transfer as GI and maternofetal are not available at our facility. D/w Dr. Valdez. Will transfer patient from [facility] to [facility] floor for close hemodynamic and tele monitoring.
== END 2024-05-30 17:00 | disposition short-term general hospital (02) ==
LOC: FBC 06:42
PROVIDERS: Internal Medicine; Admitting Provider Obstetrics & Gynecology; PCP Nurse Practitioner; Visit Provider Obstetrics & Gynecology
DX: O99.613 Diseases of the digestive system complicating pregnancy, third trimester (principal); K50.90 Crohn's disease, unspecified, without complications; O16.3 Unspecified maternal hypertension, third trimester; Z3A.29 29 weeks gestation of pregnancy; O26.893 Other specified pregnancy related conditions, third trimester; R10.84 Generalized abdominal pain
CPT/HCPCS: 36415; 74176; 80053; 81003; 82570; 83605; 83615; 84156; 84550; 85025; 85610; 85652; 85730; 86140; 87040; 96361; 96365; 96375; 96376; G0378; G0379; J0295; J0696; J1171; J2270; J2919

== ENCOUNTER 2024-10-18 21:01 | Outpatient (REF) | payer OTHER, MEDICAID, SELFPAY ==
--- OUTSIDE RECORDS SUMMARY | 2024-10-18 14:30 | XMS_ITS | Encounter Summary ---
Author Organization [facility] Address [address] [place] [address] Care Team Providers Care Roller Leveler Operator Name Role Phone Hilary Aviles MD Unavailable [phone] Reason for Visit * Reason Comments Routine Visit Encounter Details Date Type Department Care Team (Latest Contact Info) Description 10/18/2024 2:30 PM EDT Procedure Visit [facility] [place] [facility] [address] [place] [address] Kimi Simmons, LIZZETH [address] [place] [address] Well woman exam with routine gynecological exam (Primary Dx) Social History Tobacco Use Types Packs/Day Years Used Date Smoking Tobacco: Never Smokeless Tobacco: Never Alcohol Use Standard Drinks/Week Comments Never 0 (1 standard drink = 0.6 oz pur e alcohol) Comments No Sex and Gender Information Value Date Recorded Sex Assigned at Female 09/12/2022 3:34 PM EDT Legal Sex Female 11:47 PM EDT Gender Identity Female 09/12/2022 3:34 PM EDT Sexual Orientation Straight 09/12/2022 3: 34 PM EDT documented as of this encounter Last Filed Vital Signs Vital Sign Reading Time Taken Comments Blood Pressure 134/86 10/18/2024 2:36 PM EDT Pulse - - Temperature - - Respiratory Rate - - Oxygen Saturation - - Inhaled Oxygen Concentration - - Weight 76.4 kg (168 lb 8 oz) 10/18/2024 2:36 PM EDT Height - - Body Mass Index 28.04 09/15/2023 2:39 PM EDT documented in this encounter Progress Notes * Kimi Simmons NP - 10/18/2024 2:30 PM EDT Reason for Appointment: Patient ID: Juan Luis Storey is a 33 y.o. female who presents for Routine Visit Patient presents today for Annual Exam. MEDICATIONS Current Outpatient Medications Medication Instructions azaTHIOprine (Imuran) 50 MG tablet TAKE 3 TABLETS BY MOUTH IN THE MORNING Eliquis 5 MG tablet TAKE 1 TABLET BY MOUTH TWICE DAILY ( MORNING AND BEFORE BEDTIME ) folic acid (FOLVITE) 1,000 mcg, Oral, Every morning inFLIXimab-dyyb (Inflectra) 100 MG injection 5 mg/kg, Intravenous ALLERGIES Allergies Allergen Reactions Sertraline Diarrhea Pt reports this is not an allergy PROBLEMS Active Ambulatory Problems Diagnosis Date Noted No Active Ambulatory Problems Resolved Ambulatory Problems Diagnosis Date Noted No Resolved Ambulatory Problems Past Medical History: Diagnosis Date Acute Crohn's disease with complication (HCC) At standard risk for fall BMI 25.0-25.9,adult HISTORY PAST MEDICAL HISTORY SOCIAL HISTORY Past Medical History: Diagnosis Date Acute Crohn's disease with complication (HCC) At standard risk for fall BMI 25.0-25.9,adult Social History Tobacco Use Smoking status: Never Smokeless tobacco: Never Substance Use Topics Alcohol use: Never Drug use: Never FAMILY HISTORY Family History Problem Relation Name Age of Onset Diabetes Mother Hypertension Mother Anemia Mother SURGICAL HISTORY Past Surgical History: Procedure Laterality Date COLONOSCOPY 2017 CT ANGIOGRAM ABDOMEN PELVIS 06/16/2024 CT ANGIOGRAM ABDOMEN PELVIS 06/16/2024 CT ANGIOGRAM HEART CORONARY 06/02/2024 CT ANGIOGRAM TAVR 06/02/2024 CT ANGIOGRAM HEART CORONARY 06/16/2024 CT ANGIOGRAM TAVR 06/16/2024 CT ANGIOGRAM HEART CORONARY 09/08/2024 CT ANGIOGRAM TAVR 09/08/2024 CT ANGIOGRAM HEART CORONARY 09/08/2024 CT ANGIOGRAM TAVR 09/08/2024 REVIEW OF SYSTEMS Review of Systems: Review of Systems Constitutional: Negative. HENT: Negative. Eyes: Negative. Respiratory: Negative. Cardiovascular: Negative. Gastrointestinal: Negative. Genitourinary: Negative. Musculoskeletal: Negative. Skin: Negative. Neurological: Negative. All other systems reviewed and are negative. Hematological: Negative. Endocrine: Negative. Allergic/Immunologic: Negative. OBJECTIVE Objective: Physical Exam Constitutional: Appearance: Normal appearance. She is well-developed. Genitourinary: Vulva normal. Breasts: Breasts are soft. Right: Normal. Left: Normal. Cardiovascular: Rate and Rhythm: Normal rate and [...] nursing note reviewed. Exam conducted with a geometry professor present. Vitals: Estimated body mass index is 28.04 kg/m?? as calculated from the following: Height as of 09/15/23: 5' 5 . Weight as of this encounter: 168 lb 8 oz. BP: 134/86 Patient's last menstrual period was 09/19/2024. ASSESSMENT & PLAN ICD-10-CM 1. Well woman exam with routine gynecological exam Z01.419 Pap Smear HPV DNA probe, amplified Annual Exam: Patient presents today for an annual exam. Patient states she is doing well and has no complaints. Pap was obtained without difficulty. Orders Placed This Encounter Procedures HPV DNA probe, amplified Follow Up: Patient is to return in one year for annual unless needed otherwise. Documented by Kimi Simmons NP on behalf of: Kimi Simmons NP documented in this encounter Plan of Treatment Upcoming Encounters Date Type Department Care Team (Late st Contact Info) Description 10/24/2025 1:00 PM EDT Procedure Visit [facility] [address] [phone] Parish Valdez, [address] [place] [address] Scheduled Orders Name Type Priority Associated Diagnoses Orde r Schedule Pap Smear Pathology and Cytology Routine Well woman exam with routine gynecological exam Ordered: 10/18/2024 HPV DNA probe, amplified Microbiology Routine Well woman exam with routine gynecological exam Ordered: 10/18/2024 documented as of this encounter Visit Diagnoses Diagnosis Well woman exam with routine gynecological exam- Primary Routine gynecological examination documented in this encounter Care Teams Roller Leveler Operator Relationship Specialty Start Date End Date Hilary Aviles MD [address] [place] [address] Referring Physician Nurse Practitioner 10/08/22 documented as of this encounter
--- OUTSIDE RECORDS SUMMARY | 2024-10-18 21:04 | XMS_ITS | Encounter Summary ---
Author Organization [facility] Address [address] [facility] [place] [address] Care Team Providers Care Christmas Tree Farm Worker Name Role Phone Hilary Aviles MD Unavailable [phone] Encounter Details Date Type Department Care Team (Late Contact Info) Description 06/17/2024 Abstract [facility] [address] [place] [address] [place] [address] Parish Valdez DO [facility] [address], [place] [address] Social History Tobacco Use Types Packs/Day Years Used Date Smoking Tobacco: Never Smokeless Tobacco: Never Alcohol Use Standard Drinks/Week Comments Never 0 (1 standard drink = 0.6 oz pur e alcohol) Comments Yes Sex and Gender Information Value Date Recorded Sex Assigned at Female 09/12/2022 3:34 PM EDT Legal Sex Female 11:47 PM EDT Gender Identity Female 09/12/2022 3:34 PM EDT Sexual Orientation Straight 09/12/2022 3: 34 PM EDT documented as of this encounter Plan of Treatment Upcoming Encounters Date Type Department Care Team (Late Contact Info) Description 10/24/2025 1:00 PM EDT Procedure Visit JESSICA TAYL[facility] [place] [address] Parish Valdez DO [address], [facility] documented as of this encounter Visit Diagnoses Not on filedocumented in this encounter Care Teams Christmas Tree Farm Worker Relationship Specialty Start Date End Date Hilary Aviles MD [address] [place] [address] Referring Physician Nurse Practitioner 10/08/22 documented as of this encounter
--- OUTSIDE RECORDS SUMMARY | 2024-10-18 21:04 | XMS_ITS | Encounter Summary ---
Author Organization [facility] Address [id number] [address] [place] [address] Care Team Providers Care Assembly Line Machine Operator Name Role Phone Hilary Aviles APRN-GUN STRIPER Primary Care Provi [facility] Encounter Details Date Type Department Care Team (Late st Contact Info) Description 06/03/2024 Telephone [facility], A Department of [address] [address] Sharda Montiel MD [address] [place] [address], [address] [address] Social History Tobacco Use Types Packs/Day Years Used Date Smoking Tobacco: Never Smokeless Tobacco: Never Alcohol Use Standard Drinks/Week Comments No 0 (1 standard drink = 0.6 oz pur e alcohol) [facility] Utilities Answer Date Recorded In the past 12 months has e electric, gas, oil, or water company threatened to shut off services in your home? No 05/31/2024 PHQ-2 Answer Date Recorded Total Score 0 05/31/2024 PRAPARE - Transportation Answer Date Re corded In the past 12 months, has l ack of transportation kept you from medical appointments or from getting medications? No 05/12 In the past 12 months, has l ack of transportation kept you from meetings, work, or from getting things needed for daily living? No 05/31/2024 Housing Instability Answer Date Recorde d Are you worried or concerned that in the next two months you may not have stable housing that you own, rent or stay in as a part of a household? No 05/31/2024 Childcare Answer Date Recorded Childcare Unknown 07/10/2018 Employment Answer Date Recorded Employment Unknown 07/10/2018 Hunger Screening Answer Date Recorded Within the past 12 months we worried whether our food would run out before we got money to buy more. Never True 06/01/2024 Within the past 12 months th e food we bought just didn't last and we didn't have money to get more. Never True 06/01/2024 Purpose - Life Answer Date Recorded Purpose and direction in life Unknown Comments No Sex and Gender Information Value Date Recorded Sex Assigned at Not on file Legal Sex Female 9:19 PM EDT Gender Identity Not on file Sexual Orientation Not on file documented as of this encounter Miscellaneous Notes * Telephone Encounter - Sharda Montiel MD - 06/03/2024 5:09 PM EDT This lady ended up undergoing emergency due to severe preeclampsia. I would like to proceed w trough level testing w [facility] as a my previous messages and cont w planned infusion for 06/28/2024. - thank you * Telephone Encounter - Lupe Barba RN - 06/03/2024 5:09 PM EDT Patient calls infusion room.She was checking to be sure she would still get infusion as planned on 06/28/24. She states she is feeling ok at this time. RN went over Dr. Montiel's note with patient regarding infusion date and labs for trough level.. Patient has been off her Azathioprine for 2 weeks. * Telephone Encounter - Sharda Montiel MD - 06/03/2024 5:09 PM EDT Noted. Please have a resume her AZA as soon as possible. * Telephone Encounter - Lupe Barba RN - 06/03/2024 5:09 PM EDT Patient notified of response from documented in this encounter Plan of Treatment Upcoming Encounters Date Type Department Care Team (Late st Contact Info) Description 10/28/2024 1:30 PM EDT Office Visit [facility] [address] [place] [phone] Sergio Thompson, [address] [place] [address], [facility], [facility] D [place], [place] [phone] 11/03/2024 1:00 PM EDT Infusion [facility] Infusion [address] [place] [phone] 12/02/2024 10:15 AM EDT Office Visit [facility] - Medical Oncology [address] [place] [phone] Quan Diaz MD [address] [place] [address] [address] [place] [address] 12/15/2024 1:00 PM EST Infusion [facility] [address] [place] [phone] 12/31/2024 1:30 PM EST Office Visit [facility], A Department of [address] [address] [place] [address] [place] [address] 01/11/2025 1:45 PM EST Office Visit [facility] [address] [place] [phone] Cee Sagastume, BUCKLE STAPLER-GUN STRIPER [address] [facility] [place] [address] documented as of this encounter Visit Diagnoses Not on filedocumented in this encounter Additional Health Concerns Assessment Noted Time PHQ-9 Depression Total Score: 0 06/01/19 25 7:29 PM EDT documented as of this encounter Care Teams Assembly Line Machine Operator Relationship Specialty Start Date End Date Hilary Aviles, BUCKLE STAPLER-GUN STRIPER [address], [place] [address] PCP - General Family Medicine 01/03/24 documented as of this encounter
--- OUTSIDE RECORDS SUMMARY | 2024-10-18 21:04 | XMS_ITS | Encounter Summary ---
Author Organization [facility] Address [address] [facility] [address] Care Team Providers Care Campaign Associate Name Role Phone Hilary Aviles MD Unavailable [phone] Encounter Details Date Type Department Care Team (Late Contact Info) Description 06/04/2024 Abstract [facility] [address] [place] [address] [place] [address] Parish Valdez DO [facility] [place], [place] [address] Social History Tobacco Use Types Packs/Day Years [...] 1:00 PM EDT Procedure Visit JESSICA TAYL[facility] [place] [address] Parish Valdez, DO [address], [facility] documented as of this encounter Visit Diagnoses Not on filedocumented in this encounter Care Teams Campaign Associate Relationship Specialty Start Date End Date Hilary Aviles MD [address] [place] [address] Referring Physician Nurse Practitioner 10/08/22 documented as of this encounter
--- OUTSIDE RECORDS SUMMARY | 2024-10-18 21:04 | XMS_ITS | Encounter Summary ---
Author Organization [facility] tem Address [id number] [address] [place] [address] Care Team Providers Care Correctional Officer Sergeant Name Role Phone Hilary Aviles APRN-REDRAWER Primary Care Provi [facility] Encounter Details Date Type Department Care Team (Late st Contact Info) Description 06/01/2024 Documentation [facility] - Labor [address] [place] [phone] January Pooz RN Social History Tobacco Use Types Packs/Day Years Used Date Smoking Tobacco: Never Smokeless Tobacco: Never Alcohol Use Standard Drinks/Week Comments No 0 (1 standard drink = 0.6 oz pur e alcohol) [facility] Utilities Answer Date Recorded In the past 12 months has e [employer], gas, oil, or water [employer] threatened to shut off services in your [...] Purpose and direction in life Unknown Comments Yes Sex and Gender Information Value Date Recorded Sex Assigned at Not on file Legal Sex Female 9:19 PM EDT Gender Identity Not on file Sexual Orientation Not on file documented as of this encounter Plan of Treatment Upcoming Encounters Date Type Department Care Team (Late st Contact Info) Description 10/28/2024 1:30 PM EDT Office Visit [facility] [address] [place] [address] [place] [address] Sergio Thompson, [address] [place] [address], [facility], [place] [address] 11/03/2024 1:00 PM EDT Infusion [facility] Infusion [address] [place] [phone] 12/02/2024 10:15 AM EDT Office Visit [facility] - Medical Oncology [address] [place] [phone] Quan Diaz MD [address] [place] [address] [address] [place] [address] 12/15/2024 1:00 PM EST Infusion [facility] Infusion [address] [place] [phone] 12/31/2024 1:30 PM EST Office Visit [facility], A Department of [address] [phone] Josephine [place], [place] [address] [facility] [place] [address] 01/11/2025 1:45 PM EST Office Visit [facility] [address] [facility] [address] [place] [address] Cee Sagastume, PARTS INSPECTOR-REDRAWER [address] [facility] [place] [address] documented as of this encounter Visit Diagnoses Not on filedocumented in this encounter Additional Health Concerns Assessment Noted Time PHQ-9 Depression Total Score: 0 06/01/19 25 7:29 PM EDT documented as of this encounter Care Teams Correctional Officer Sergeant Relationship Specialty Start Date End Date Hilary Aviles, PARTS INSPECTOR-REDRAWER [address], [place] [address] PCP - General Family Medicine 01/03/24 documented as of this encounter
--- OUTSIDE RECORDS SUMMARY | 2024-10-18 21:04 | XMS_ITS | Encounter Summary ---
Author Organization [facility] Address [address] [facility] [place] [address] Care Team Providers Care Propeller Engineer Name Role Phone Hilary Aviles MD Unavailable [phone] Encounter Details Date Type Department Care Team (Late Contact Info) Description 06/02/2024 Abstract [facility] [address] [place] [address] [place] [address] Parish Valdez DO [facility] [place], [place] [address] Social History Tobacco Use Types Packs/Day Years [...] 1:00 PM EDT Procedure Visit JESSICA TAYLOR [facility] [place] [address] Parish Valdez, DO [address], [facility]11 documented as of this encounter Visit Diagnoses Not on filedocumented in this encounter Care Teams Propeller Engineer Relationship Specialty Start Date End Date Hilary Aviles MD [address] [place] [address] Referring Physician Nurse Practitioner 10/08/22 documented as of this encounter
--- OUTSIDE RECORDS SUMMARY | 2024-10-18 21:04 | XMS_ITS | Encounter Summary ---
Author Organization [email or web address] Sys [employer] Address [facility]-[id number] [address] [place] [address] Care Team Providers Care Senior Net Software Developer Name Role Phone Hilary Aviles APRN-[facility] Primary Care Provi lazarus Reason for Referral * Diagnostic Imaging (Routine) - Pending Review Specialty Diagnoses / Procedures Referred By Contnash t Referred To Contact Radiology Diagnoses Pain Procedures CT abdomen and pelvis without contrast [facility] [place] [address] Phone: tel: fax: Referral ID Status Reason Start Date Expiration Date V isits Requested Visits Authorized [id number] Pending Review 05/30/2024 05/30/2025 1 1 Encounter Details Date Type Department Care Team (Late st Contact Info) Description 05/30/2024 Orders Only [facility] [place] [address] External, Scanning Provider Pain (Primary Dx) Social History Tobacco Use Types Packs/Day Years Used Date Smoking Tobacco: Never Smokeless Tobacco: Never Alcohol Use Standard Drinks/Week Comments No 0 (1 standard drink = 0.6 oz pur e alcohol) [facility] Utilities Answer Date Recorded In the past 12 months has Flud, gas, oil, or water [employer] [place] threatened to shut off services in your [...] on file documented as of this encounter Functional Status documented as of this encounter Plan of Treatment Upcoming Encounters Date Type Department Care Team (Late st Contact Info) Description 10/28/2024 1:30 PM EDT Office Visit [facility] [address] [place] [address] [place] [address] Sergio Thompson, DO 605 [facility], [address], [place] [address] 11/03/2024 1:00 PM EDT Infusion [facility] [address] [address] 12/02/2024 10:15 AM EDT Office Visit [facility] - Medical Oncology [address] [place] [address] Quan Diaz MD [address] [facility] [facility] [address] [place] [address] 12/15/2024 1:00 PM EST Infusion [facility] [address] [facility] [address] [place] [phone] 12/31/2024 1:30 PM EST [facility] [address] [facility] 103 [place] [phone] Josephine Turner PA 57[address] [facility]. [address] [place] [address] 01/11/2025 1:45 PM EST Office Visit [facility] 275[address] [facility] 302 [place] [address] Cee Sagastume, COURTESY BUS DRIVER-CNA GNA [address] [facility], [address] [place] [address] documented as of this encounter Results * CT abdomen and pelvis without contrast (05/30/2024 3:00 PM EDT) us Scanning Provider External IMG CT ORDERABLES Fin al Result documented in this encounter Visit Diagnoses Diagnosis Pain- Primary Generalized pain documented in this encounter Additional Health Concerns Assessment Noted Time PHQ-9 Depression Total Score: 0 05/07/19 25 9:40 AM EDT documented as of this encounter Care Teams Senior Net Software Developer Relationship Specialty Start Date End Date Hilary Aviles, COURTESY BUS DRIVER-CNA GNA [address], [place] [address] PCP - General Family Medicine 01/03/24 documented as of this encounter
--- OUTSIDE RECORDS SUMMARY | 2024-10-18 21:04 | XMS_ITS | Encounter Summary ---
Author Organization [facility] Address [address] [facility] [place] [address] Care Team Providers Care Senior Manufacturing Test Engineer Name Role Phone Hilary Aviles MD Unavailable [phone] Encounter Details Date Type Department Care Team (Late Contact Info) Description 06/01/2024 Abstract [facility] [address] [place] [address] [place] [address] Parish Valdez DO [facility] Nere[address] [place], [place] [address] Social History Tobacco Use Types Packs/Day Years [...] 1:00 PM EDT Procedure Visit JESSICA TAYLOR [facility] [place] [address] Parish Valdez, DO [address] [place], [facility]11 documented as of this encounter Visit Diagnoses Not on filedocumented in this encounter Care Teams Senior Manufacturing Test Engineer Relationship Specialty Start Date End Date Hilary Aviles MD [address] [place] [address] Referring Physician Nurse Practitioner 10/08/22 documented as of this encounter
--- OUTSIDE RECORDS SUMMARY | 2024-10-18 21:04 | XMS_ITS | Encounter Summary ---
Author Organization [facility] tem Address [id number] [address] [place] [address] Care Team Providers Care Java Lead Engineer Name Role Phone Hilary Aviles APRN-KINDER TEACHER Primary Care Provi lazarus Encounter Details Date Type Department Care Team (Late st Contact Info) Description 05/30/2024 Orders Only [facility] - Labor [address] [place] [phone] Tina Ratliff MD [address] [facility], [facility] [address] [place] [address] Social History Tobacco Use Types Packs/Day Years Used Date Smoking Tobacco: Never Smokeless Tobacco: Never Alcohol Use Standard Drinks/Week Comments No 0 (1 standard drink = 0.6 oz pur e alcohol) [facility] Utilities Answer Date Recorded In the past [...] Visit [facility] [address] [place] [phone] Sergio Thompson, 605 [facility], [address], [place], [place] [phone] 11/03/2024 1:00 PM EDT Infusion [facility] Infusion [address] [place] [phone] 12/02/2024 10:15 AM EDT Office Visit [facility] Medical Oncology [address] [place] [phone] Quan Diaz MD [address] [place] [address] [address] [place] [address] 12/15/2024 1:00 PM EST Infusion [facility]fusion [address] [phone] 12/31/2024 1:30 PM EST Office Visit [facility], A Department of [facility] [address] [facility] 103 [place] [address] Josephine Turner, PA [address] [facility]. [address] [place] [address] 01/11/2025 1:45 PM EST Office Visit [facility] 2751 [facility] 302 [place] [address] Cee Sagastume, BLOOMING MILL SUPERVISOR-KINDER TEACHER [address] [facility], [address] [place] [address] documented as of this encounter Visit Diagnoses Not on filedocumented in this encounter Additional Health Concerns Assessment Noted Time PHQ-9 Depression Total Score: 0 05/07/19 25 9:40 AM EDT documented as of this encounter Care Teams Java Lead Engineer Relationship Specialty Start Date End Date Hilary Aviles, BLOOMING MILL SUPERVISOR-KINDER TEACHER [address], [place] [address] PCP - General Family Medicine 01/03/24 documented as of this encounter
--- OUTSIDE RECORDS SUMMARY | 2024-10-18 21:04 | XMS_ITS | Clinical Summary ---
Author Organization [facility] Address [address] [place] [address] Care Team Providers Care Vest Backer Name Role Phone Hilary Aviles MD Unavailable [phone] Allergies Active Allergy Reactions Criticality Noted Date Comments Sertraline Diarrhea 11/09/2018 Pt reports this is not an allergy Medications azaTHIOprine (Imuran) 50 MG tablet TAKE 3 TABLETS BY MOUTH IN THE MORNING 05/07/19 23 Active folic acid (Folvite) 1 MG tablet Take 1,000 mcg by mouth in the morning. 05/08/19 23 Active inFLIXimab-dyyb (Inflectra) 100 MG injection Infuse 5 mg/kg into a venous catheter Active Eliquis 5 MG tablet TAKE 1 TABLET BY MOUTH TWICE DAILY ( MORNING AND BEFORE BEDTIME ) Active Cobalamin Combinations (B-12) 100-5000 MCG sublingual tablet B12 2024 Discontinued cholecalciferol (Vitamin D-3) 25 MCG (1000 UT) capsule 1,000 Units. 2024 Discontinued HYDROcodone-acetami nophen ([place]) 5-325 MG tabletIndications:A bdominal pain, unspecified abdominal location,Crohn's disease with complication, unspecified gastrointestinal tract location (HCC) Take 1 tablet by mouth every 6 (six) hours if needed for moderate pain or severe pain for up to 15 doses 15 tablet 04/21/19 25 2024 Discontinued labetalol (Normodyne) 100 MG tablet 05/07/19 25 2024 Discontinued Encounters Date Type Department Care Team Description 10/18/2024 2:30 PM EDT Procedure Visit [facility] MARKHAMN [address] [place] [address] Kimi Simmons NP Well woman exam with routine gynecological exam (Primary Dx) 10/18/2024 Bamboo flowsheet [facility] [address] [place] [address] Kimi Simmons NP from Last 3 Months Family History Medical History Relation Name Comments Anemia Mother Diabetes Mother Hypertension Mother Relation Name Status Comments Brother 1 Daughter 2 Mother Sister 1 Social History Tobacco Use Types Packs/Day Years Used Date Smoking Tobacco: Never Smokeless Tobacco: Never Tobacco Cessation:Counseling Given: Not Answered Alcohol Use Standard Drinks/Week Comments Never 0 (1 standard drink = 0.6 oz pur e alcohol) Comments No Sex and Gender Information Value Date Recorded Sex Assigned at Female 09/12/2022 3:34 PM EDT Legal Sex Female 11:47 PM EDT Gender Identity Female 09/12/2022 3:34 PM EDT Sexual Orientation Straight 09/12/2022 3: 34 PM EDT Last Filed Vital Signs Vital Sign Reading Time Taken Comments Blood Pressure 134/86 10/18/2024 2:36 PM EDT Pulse - - Temperature - - Respiratory Rate - - Oxygen Saturation - - Inhaled Oxygen Concentration - - Weight 76.4 kg (168 lb 8 oz) 10/18/2024 2:36 PM EDT Height 165.1 cm (5' 5 ) 09/15/2023 2:39 PM EDT Body Mass Index 28.04 09/15/2023 2:39 PM EDT Plan of Treatment Upcoming Encounters Date Type Department Care Team (Late st Contact Info) Description 10/24/2025 1:00 PM EDT Procedure Visit [facility] T[facility] [address] [place] [address] Parish Valdez DO [address] [place], [place] [id number] Insurance [facility] MEDICAID [facility] Address: [facility] [id number] [place] [address] Care Teams Vest Backer Relationship Specialty Start Date End Date Hilary Aviles MD [address] [place] [address] Referring Physician Nurse Practitioner 10/08/22
--- OUTSIDE RECORDS SUMMARY | 2024-10-18 21:04 | XMS_ITS | Encounter Summary ---
Author Organization [facility] Address [facility][id number] [address] [place] [address] Care Team Providers Care Clinical Consultant Name Role Phone Hilary Aviles SECURITY TEST ENGINEER-ANATOMY PROFESSOR Primary Care Provi lazarus Encounter Details Date Type Department Care Team (Late st Contact Info) Description 09/12/[address] [facility] [address] [place] [address] Hilary Aviles, PAUL-ANATOMY PROFESSOR 605 [facility] [address], [place], [place] [phone] Social History Tobacco Use Types Packs/Day Years Used Date Smoking Tobacco: Never Smokeless Tobacco: Never Alcohol Use Standard Drinks/Week Comments No 0 (1 standard drink = 0.6 oz pur e alcohol) PHQ-2 Answer Date Recorded Total Score 11 11/23/2020 Childcare Answer Date Recorded Childcare Unknown 07/10/2018 Employment Answer Date Recorded Employment Unknown 07/10/2018 Purpose - Life Answer Date Recorded Purpose and direction in life Unknown Comments No Sex and Gender Information Value Date Recorded Sex Assigned at Not on file Legal Sex Female 9:19 PM EDT Gender Identity Not on file Sexual Orientation Not on file documented as of this encounter Miscellaneous Notes * Telephone Encounter - Teresa Cavanaugh - 09/12/2022 2:24 PM EDT Has a cyst on her foot said that she needs to be seen lorna or can we refer to her a foot doctor. She also had a referral to for Finger doctor. Please advise kongyou * Telephone Encounter - TERA Church - 09/12/2022 2:24 PM EDT Can we put in her for same day Friday the * Telephone Encounter - Teresa Cavanaugh - 09/12/2022 2:24 PM EDT I CALLED AND LEFT A MESSAGE AND PUT HER ON FOR THE SCHEDULE FOR 09/18/2022 documented in this encounter Plan of Treatment Upcoming Encounters Date Type Department Care Team (Late st Contact Info) Description 10/28/2024 1:30 PM EDT Office Visit [facility] [address] [place] [address] [place] [address] Sergio Thompson, 605 [facility], [place] [address] 11/03/2024 1:00 PM EDT Infusion [facility] [address] [facility] [address] [place] [address] 12/02/2024 10:15 AM EDT Office Visit [facility] [place] [address] [place] [address] [place] [address] [address] [place] [address] 12/15/2024 1:00 PM EST Infusion [facility] [address] [facility] [address] [place] [phone] 12/31/2024 1:30 PM EST Office Visit [facility], A Department of [facility] 57[address] [facility] 103 [place] [phone] Josephine Turner, PA 5700 [facility]. [address] [place] [address] 01/11/2025 1:45 PM EST Office Visit [facility] 2751 [facility] 302 [place] [phone] Cee Sagastume, SECURITY TEST ENGINEER-ANATOMY PROFESSOR [address] [facility], [address] [place] [address] documented as of this encounter Visit Diagnoses Not on filedocumented in this encounter Additional Health Concerns Assessment Noted Time PHQ-9 Depression Total Score: 11 021 1:00 PM EDT documented as of this encounter Care Teams Clinical Consultant Relationship Specialty Start Date End Date Hilary Aviles, SECURITY TEST ENGINEER-ANATOMY PROFESSOR [address], [place] [address] PCP - General Family Medicine 01/03/24 documented as of this encounter
--- OUTSIDE RECORDS SUMMARY | 2024-10-18 21:04 | XMS_ITS | Encounter Summary ---
Author Organization [facility] Address [address] [facility] [place] [address] Care Team Providers Care Body Painter Name Role Phone Hilary Aviles MD Unavailable [phone] Encounter Details Date Type Department Care Team (Late st Contact Info) Description 06/01/2024 Results Follow-Up JESSICA TAYLOR [address] [employer] [address] [place] [address] Veronica Klein LPN [address] [employer] [address] [place] [phone] ALL CBC WITH AUTO DIFF, ALL BUN, TBH CREATININE, Additional followed-up results: 7 Social History Tobacco Use Types Packs/Day Years [...] PM EDT documented as of this encounter Miscellaneous Notes * Result Encounter Note - Veronica Klein LPN - 06/01/2024 1:08 PM EDT As we discussed documented in this encounter Plan of Treatment Upcoming Encounters Date Type Department Care Team (Late st Contact Info) Description 10/24/2025 1:00 PM EDT Procedure Visit [facility] [address] [facility] [place] [phone] Parish Valdez DO [address] [place] [address] documented as of this encounter Visit Diagnoses Not on filedocumented in this encounter Care Teams Body Painter Relationship Specialty Start Date End Date Hilary Aviles MD [address] [place] [address] [place] [address] Referring Physician Nurse Practitioner 10/08/22 documented as of this encounter
--- OUTSIDE RECORDS SUMMARY | 2024-10-18 21:04 | XMS_ITS | Encounter Summary ---
Author Organization [facility] Address [address] [place] [address] Care Team Providers Care Stereotyper Name Role Phone Hilary Aviles MD Unavailable [phone] Encounter Details Date Type Department Care Team (Late st Contact Info) Description 10/18/2024 Bamboo flowsheet [facility] T[facility]LOR [address] [place] [address] Kimi Simmons, HANDBOOK WRITER [address] [facility] [address] [place] [address] Social History Tobacco Use Types Packs/Day Years [...] EDT Procedure Visit [facility] TAYLOR [address] [place] [address] Parish Valdez, DO [address] [facility] [facility] [address] [place] [address] documented as of this encounter Visit Diagnoses Not on filedocumented in this encounter Care Teams Stereotyper Relationship Specialty Start Date End Date Hilary Aviles MD [address] [place] [address] [place] [address] Referring Physician Nurse Practitioner 10/08/22 documented as of this encounter
--- OUTSIDE RECORDS SUMMARY | 2024-10-18 21:04 | XMS_ITS | Encounter Summary ---
Author Organization [facility] Address [facility]-[id number] [address] [place] [address] Care Team Providers Care Loop Tender Name Role Phone Hilary Aviles APRN-[facility] Primary Care Provi lazarus Reason for Referral * Consultation (Routine) - Pending Review Specialty Diagnoses / Procedures Referred By Contac t Referred To Contact BLOOD MANAGEMENT Diagnoses Iron deficiency anemia, unspecified iron deficiency anemia type Sharda Montiel MD [address] [place] [address] Phone: tel: fax: [facility] Phone: tel: fax: Referral ID Status Reason Start Date Expiration Date V isits Requested Visits Authorized [id number] Pending Review 07/08/2024 07/08/2025 1 1 Encounter Details Date Type Department Care Team (Late st Contact Info) Description 07/08/2024 Telephone [facility], A Department of [address] [address] Ariane Jarquin CMA Social History Tobacco Use Types Packs/Day Years Used Date Smoking Tobacco: Never Smokeless Tobacco: Never Alcohol Use Standard Drinks/Week Comments No 0 (1 standard drink = 0.6 oz pur e alcohol) [facility] Utilities Answer Date Recorded In the past 12 months has th e electric, gas, oil, or water company threatened to shut off services in your home? No 06/17/2024 AUDIT-C Answer Date Recorded Q1: How often do you have a drink containing alcohol? Never 06/17/2024 Q2: How many drinks containi ng alcohol do you have on a typical day when you are drinking? Patient does not drink Q3: How often do you have si x or more drinks on one occasion? Never 06/17/2024 PHQ-2 Answer Date Recorded Total Score 0 07/06/2024 PRAPARE - Transportation Answer Date Re corded In the past 12 months, has l ack of transportation kept you from medical appointments or from getting medications? No 09/2024 In the past 12 months, has l ack of transportation kept you from meetings, work, or from getting things needed for daily living? No 06/17/2024 [place] Depression Scale Answer Date Recorded [place] Depression Scale Total 4 06/21/2024 The thought of harming myself has occurred to me . Never 06/21/2024 Housing Instability Answer Date Recorde d Are you worried or concerned that in the next two months you may not have stable housing that you own, rent or stay in as a part of a household? No 06/21/2024 Childcare Answer Date Recorded Do problems getting child ca re make it difficult for you to work or study? No 06/21/2024 Employment Answer Date Recorded Employment Unknown 07/10/2018 Hunger Screening Answer Date Recorded Within the past 12 months we worried whether our food would run out before we got money to buy more. Never True 07/06/2024 Within the past 12 months th e food we bought just didn't last and we didn't have money to get more. Never True 07/06/2024 Purpose - Life Answer Date Recorded Purpose and direction in life Unknown Comments No Sex and Gender Information Value Date Recorded Sex Assigned at Not on file Legal Sex Female 9:19 PM EDT Gender Identity Not on file Sexual Orientation Not on file documented as of this encounter Miscellaneous Notes * Telephone Encounter - Ariane Jarquin CMA - 07/08/2024 2:04 PM EDT Patient called wanting to know if we could refer her to [facility] for iron infusions.She stated she is throwing up every time she times her iron. Please advise. * Telephone Encounter - Sharda Montiel MD - 07/08/2024 2:04 PM EDT Sure, order in to the blood mgmt program * Telephone Encounter - Ariane Jarquin CMA - 07/08/2024 2:04 PM EDT Sent via [employer]. documented in this encounter Plan of Treatment Upcoming Encounters Date Type Department Care Team (Late st Contact Info) Description 10/28/2024 1:30 PM EDT Office Visit [facility] [address] [place] [address] [place] [address] Sergio Thompson, 605 [facility], [place] [address] 11/03/2024 1:00 PM EDT Infusion [facility] [address]00 [facility] [address] [place] [phone] 12/02/2024 10:15 AM EDT Office Visit [facility] [place] [phone] [place] [address] [place] [address] [address] [place] [address] 12/15/2024 1:00 PM EST Infusion [facility] [address] [facility] [address] [place] [phone] 12/31/2024 1:30 PM EST Office Visit [facility], [facility] [address] [facility] 103 [place] [phone] Josephine Turner, PA 5700 [facility]. [address] [place] [address] 01/11/2025 1:45 PM EST Office Visit [facility] 2751 [facility] 302 [place] [phone] Cee Sagastume, CHIEF RECORDIST-HARNESS BRUSHER 5700 [facility], [address] [place] [address] Scheduled Referrals Name Type Priority Associated Diagnoses Order Schedule Ambulatory Referral to Benign Hematology/Blood Management Outpatient Referral Routine Iron deficiency anemia, unspecified iron deficiency anemia type 1 Occurrences starting 07/08/2024 until 07/08/2025 documented as of this encounter Goals Goal Patient Goal Type Associated Problems Recent Progress Patient-Stated? Author <enter goal here> General Yes Nikky Berger LSW Note: Evaluation of progress towards goal: pt would like to return home with family support vs going to [facility] while her baby remains in NICU documented as of this encounter Visit Diagnoses Diagnosis Iron deficiency anemia, unspecified iron deficiency anemia type- Primary documented in this encounter Additional Health Concerns Assessment Noted Time PHQ-9 Depression Total Score: 0 07/07/19 25 11:56 AM EDT documented as of this encounter Care Teams Loop Tender Relationship Specialty Start Date End Date Hilary Aviles, CHIEF RECORDIST-HARNESS BRUSHER [address], [place] [address] PCP - General Family Medicine 01/03/24 documented as of this encounter
--- OUTSIDE RECORDS SUMMARY | 2024-10-18 21:05 | XMS_ITS | Encounter Summary ---
Author Organization [facility] Address [address] [place] [address] Care Team Providers Care Centerpuncher Name Role Phone Hilary Aviles MD Unavailable [phone] Encounter Details Date Type Department Care Team (Late st Contact Info) Description 09/24/2023 Orders Only [facility] T[facility] [address] [place] [address] Dina Kelly LPN Social History Tobacco Use Types Packs/Day Years [...] 1:00 PM EDT Procedure Visit [facility] [address] [place] [address] Parish Valdez DO [address] [place], [place] [phone] documented as of this encounter Procedures Procedure Name Priority Date/Time Associated Diagnosis Comments PAP SMEAR Routine 09/17/2023 12:00 AM EDT documented in this encounter Results * Pap Smear (09/17/2023 12:00 AM EDT) Swab Cervical swab / Unknown [facility]Y ORDERABLES Final Re sult EXTERNAL LAB documented in this encounter Visit Diagnoses Not on filedocumented in this encounter Care Teams Centerpuncher Relationship Specialty Start Date End Date Hilary Aviles MD [address] [place] [address] Referring Physician Nurse Practitioner 10/08/22 documented as of this encounter
--- OUTSIDE RECORDS SUMMARY | 2024-10-18 21:05 | XMS_ITS | Encounter Summary ---
Author Organization [facility] Address [id number] [address] [place] [address] Care Team Providers Care Compliance Aide Name Role Phone Hilary Aviles APRN-MAINTENANCE AND REPAIR WORKER Primary Care Provi lazarus Reason for Visit * Reason Comments Med Refill Encounter Details Date Type Department Care Team (Late st Contact Info) Description 12/24/2017 Refill [facility] [address] [place] [address] Sharda Montiel MD [address] [place] [address], [address] [place] [address] Social History Tobacco Use Types Packs/Day [...] Telephone Encounter - Sharda Montiel MD - 12/24/2017 3:26 PM EST I never received labs for the 2nd week of monitoring on azathioprine. - also is this order correct? * Telephone Encounter - Kamila Cam RN - 12/24/2017 3:26 PM EST Doesn't look like labs were done, left reminder call for pt. Also order for humira is incorrect. Ptcompleted starter dose(started on Dec.01) needs rf on maintenance, will send to you. Kamila Cam RN 12/26/17 0538 documented in this encounter Plan of Treatment Upcoming Encounters Date Type Department Care Team (Late st Contact Info) Description 10/28/2024 1:30 PM EDT Office Visit [facility] [address] [place] [address] [place] [phone] Sergio Thompson, 605 [facility], [address], [place] [address] 11/03/2024 1:00 PM EDT Infusion [facility] [address] [place] [phone] 12/02/2024 10:15 AM EDT Office Visit [facility] - Medical Oncology [address] [place] [phone] Quan Diaz MD [address] [place] [address] [address] [place] [address] 12/15/2024 1:00 PM EST Infusion [facility] [address] [place] [address] [address] [place] [phone] 12/31/2024 1:30 PM EST Office Visit [facility] Care, A Department of [address] [place] [phone] [place] [address] [place] [address] [address] [place] [address] 01/11/2025 1:45 PM EST Office Visit [facility] Vascular Surgery [address] [facility] [address] Cee Sagastume, PRACTICE BUSINESS ASST-MAINTENANCE AND REPAIR WORKER [address] [facility] [place] [address] documented as of this encounter Visit Diagnoses Not on filedocumented in this encounter Additional Health Concerns Infection Onset Date Last Indicated Resolved Time COVID-19 Rule-Out 12/25/2020 12/22/2020 12/25/2020 4:25 PM EST Enteric Rule-Out 07/18/2021 07/18/2021 07/19/2021 4:20 AM EDT COVID-19 Rule-Out 03/24/2022 03/24/2022 03/24/2022 10:15 PM EST COVID-19 Positive 03/24/2022 03/24/2022 04/14/2022 11:12 PM EST documented as of this encounter Care Teams Compliance Aide Relationship Specialty Start Date End Date Hilary Aviles, PRACTICE BUSINESS ASST-MAINTENANCE AND REPAIR WORKER [address], [place] [address] PCP - General Family Medicine 01/03/24 documented as of this encounter
--- OUTSIDE RECORDS SUMMARY | 2024-10-18 21:05 | XMS_ITS | Encounter Summary ---
Author Organization [facility] Address [id number] [address] [place] [address] Care Team Providers Care Classification Control Clerk Name Role Phone Hilary Aviles FINANCIAL PROJECT MANAGER-ACCOUNTING FILE CLERK Primary Care Provi lazarus Reason for Visit * Reason Onset Date Comments Med Refill 09/13/2024 Encounter Details Date Type Department Care Team (Late st Contact Info) Description 09/13/2024 Refill [facility], A Department of [address] [place] [address] Anai Saunders, ELIZA Crohn's disease of both small and large intestine with intestinal obstruction (CMS-HCC) (Primary Dx) Social History Tobacco Use Types Packs/Day Years Used Date Smoking Tobacco: Never Smokeless Tobacco: Never Alcohol Use Standard Drinks/Week Comments No 0 (1 standard drink = 0.6 oz pur e alcohol) [facility] Utilities Answer Date Recorded In the past 12 months has [employer] electric, gas, oil, or water company threatened [...] PHQ-2 Answer Date Recorded Total Score 0 08/02/2024 PRAPARE - Transportation Answer Date Re corded In the past 12 months, has l ack of transportation kept you from medical appointments or from getting medications? No 09/2024 In the past 12 months, has l ack of transportation kept you from meetings, work, or from getting things needed for daily living? No 06/17/2024 [place] Depression Scale Answer Date Recorded [place] Depression Scale Total 4 06/21/2024 The thought [...] got money to buy more. Never True 09/08/2024 Within the past 12 months th e food we bought just didn't last and we didn't have money to get more. Never True 09/08/2024 Purpose - Life Answer Date Recorded Purpose and direction in life Unknown Comments No Sex and Gender Information Value Date Recorded Sex Assigned at Not on file Legal Sex Female 9:19 PM EDT Gender Identity Not on file Sexual Orientation Not on file documented as of this encounter Miscellaneous Notes * Telephone Encounter - Anai Saunders CMA - 09/13/2024 11:00 AM EDT Patient calls asking for refill to be sent to Counts include [facility] beds at the [facility] * Telephone Encounter - Sharda Montiel MD - 09/13/2024 11:00 AM EDT How long will she be in [place]? Also, why did she cancel 09/27/24 OV? She needs follow up, was due this month. Needs seen this month or next. * Telephone Encounter - Ariane Jarquin CMA - 09/13/2024 11:00 AM EDT I have no openings available for you, you want her to see an HI? * Telephone Encounter - Ariane Jarquin CMA - 09/13/2024 11:00 AM EDT She will be be back Friday. She stated we cancelled the appointment and she is scheduled with 12/31/24 * Telephone Encounter - Sharda Montiel MD - 09/13/2024 11:00 AM EDT Okay, I would like her seen sooner if possible if something opens up. * Telephone Encounter - Ariane Jarquin CMA - 09/13/2024 11:00 AM EDT She's on cancellation list, I will also keep an eye out for any cancellations. documented in this encounter Plan of Treatment Upcoming Encounters Date Type Department Care Team (Late st Contact Info) Description 10/28/2024 1:30 PM EDT Office Visit [facility] [address] [place] [address] [place] [phone] Sergio Thompson, [address] [place] [address], [facility], [place] [address] 11/03/2024 1:00 PM EDT Infusion [facility] [address] [facility] [address] [place] [phone] 12/02/2024 10:15 AM EDT Office Visit [facility] - Medical Oncology [address] [place] [phone] Quan Diaz MD [address] [facility] [address] [place] [address] 12/15/2024 1:00 PM EST Infusion [facility] [address] [facility] [address] [place] [phone] 12/31/2024 1:30 PM EST Office Visit [facility], A Department of [facility] [address] [facility] [address] [place] [phone] Josephine Turner PA [address] [facility]. [address] [place] [address] 01/11/2025 1:45 PM EST Office Visit [facility] Vascular Surgery [address] [facility] [address] [place] [phone] Cee Sagastume, FINANCIAL PROJECT MANAGER-ACCOUNTING FILE CLERK [address] [facility] [place], [place] [phone] documented as of this encounter Goals Goal Patient Goal Type Associated Problems Recent Progress Patient-Stated? Author <enter goal here> General Yes Nikky Berger LSW Note: Evaluation of progress towards goal: pt would like to return home with family support vs going to [facility] while her baby remains in NICU documented as of this encounter Visit Diagnoses Diagnosis Crohn's disease of both small and large intestine with intestinal obstruction (CMS-HCC)- Primary documented in this encounter Additional Health Concerns Assessment Noted Time PHQ-9 Depression Total Score: 0 08/03/19 25 2:12 PM EDT documented as of this encounter Care Teams Classification Control Clerk Relationship Specialty Start Date End Date Hilary Aviles, FINANCIAL PROJECT MANAGER-ACCOUNTING FILE CLERK [address], [place] [address] PCP - General Family Medicine 01/03/24 documented as of this encounter
--- OUTSIDE RECORDS SUMMARY | 2024-10-18 21:05 | XMS_ITS | Encounter Summary ---
Author Organization [facility] Address [facility]-[id number] [address] [place] [address] Care Team Providers Care Senior Manufacturing Supervisor Name Role Phone Hilary Aviles APRN-LITHOGRAPH OPERATOR Primary Care Provi lazarus Encounter Details Date Type Department Care Team (Late st Contact Info) Description 07/27/2024 Orders Only [facility] [address] [facility] [address] [place] [address] Lupe Barba, RN Crohn's disease of both small and large intestine with intestinal obstruction (CMS-HCC) (Primary Dx) Social History Tobacco Use Types Packs/Day Years Used Date Smoking Tobacco: Never Smokeless Tobacco: Never Alcohol Use Standard Drinks/Week Comments No 0 (1 standard drink = 0.6 oz pur e alcohol) [facility] Utilities Answer Date Recorded In the past 12 months has [employer], gas, oil, or water [employer] threatened to shut off services in your [...] things needed for daily living? No 06/17/2024 [place] Depression Scale Answer Date Recorded [place] Depression Scale Total 4 06/21/2024 The thought [...] Family Medicine [address] [place] [address] Sergio Thompson, DO [address] [facility], [address], [place] [address] 11/03/2024 1:00 PM EDT Infusion [facility] [address] [facility] [address] [place] [phone] 12/02/2024 10:15 AM EDT Office Visit [facility] - Medical Oncology [address] [place] [address] Quan Diaz MD [address] [facility] [address] [place] [address] 12/15/2024 1:00 PM EST Infusion [facility] [address] [facility] [address] [place] [phone] 12/31/2024 1:30 PM EST Office Visit [facility] Care, A Department of [facility] [address] [facility] [address] [place] [phone] Josephine Turner PA [address] [facility]. [address] [place] [address] 01/11/2025 1:45 PM EST Office Visit [facility] Vascular Surgery [address] [facility] [address] [place] [phone] Cee Sagastume, PAEDIATRIC THORACIC PHYSICIAN-LITHOGRAPH OPERATOR [address] [facility] [place] [address] Scheduled Orders Name Type Priority Associated Diagnoses Orde r Schedule QuantiFERON-Tb Gold Plus, B Lab Routine Crohn's disease of both small and large intestine with intestinal obstruction (CMS-HCC) 1 Occurrences starting 07/27/2024 until 07/27/2025 documented as of this encounter Goals Goal Patient Goal Type Associated Problems Recent Progress Patient-Stated? Author <enter goal here> General Yes Nikky Berger LSW Note: Evaluation of progress towards goal: pt would like to return home with family support [facility] documented as of this encounter Visit Diagnoses Diagnosis Crohn's disease of both small and large intestine with intestinal obstruction (CMS-HCC)- Primary documented in this encounter Additional Health Concerns Assessment Noted Time PHQ-9 Depression Total Score: 0 07/07/19 25 11:56 AM EDT documented as of this encounter Care Teams Senior Manufacturing Supervisor Relationship Specialty Start Date End Date Hilary Aviles, PAUL-LITHOGRAPH OPERATOR [address], [place] [phone] PCP - General Family Medicine 01/03/24 documented as of this encounter
--- OUTSIDE RECORDS SUMMARY | 2024-10-18 21:05 | XMS_ITS | Encounter Summary ---
Author Organization [facility] Address [facility]-[id number] [address] [place] [address] Care Team Providers Care Irrigation Supervisor Name Role Phone Hilary Aviles FRUIT DISTRIBUTOR-DOOR PERSON Primary Care Provi lazarus Encounter Details Date Type Department Care Team (Late st Contact Info) Description 11/22/2019 [facility]phone [facility] 5700 [facility] [address] [place] [phone] Kamila Cam RN Social History Tobacco Use Types Packs/Day Years Used Date Smoking Tobacco: Never Smokeless Tobacco: Never Alcohol Use Standard Drinks/Week Comments No 0 (1 standard drink = 0.6 oz pur e alcohol) PHQ-2 Answer Date Recorded Total Score 21 11/22/2019 Childcare Answer Date Recorded Childcare Unknown 07/10/2018 Employment Answer Date Recorded Employment Unknown 07/10/2018 Comments No Sex and Gender Information Value Date Recorded Sex Assigned at Not on file Legal Sex Female 9:19 PM EDT Gender Identity Not on file Sexual Orientation Not on file COVID-19 Exposure Response Date Recorded In the last month, have you been in contact with someone who was confirmed or suspected to have Coronavirus / COVID-19? No / Unsure 11/22/2019 1:21 PM EDT documented as of this encounter Miscellaneous Notes * Telephone Encounter - Kamila Cam RN - 11/22/2019 10:11 AM EDT inflectra therapy plan added, received approval letter. Kamila Cam RN 11/22/19 1015 documented in this encounter Plan of Treatment Upcoming Encounters Date Type Department Care Team (Late st Contact Info) Description 10/28/2024 1:30 PM EDT Office Visit [facility] Medicine [address] [place] [address] [place] [phone] Sergio Thompson, [address] [place] [address], [address], [address] [place], [place] [phone] 11/03/2024 1:00 PM EDT Infusion [facility] [address] [place] [address] [address] [place] [phone] 12/02/2024 10:15 AM EDT [facility] [address] [place] [phone] Quan Diaz MD [address] [facility] [address] [place] [address] 12/15/2024 1:00 PM EST Infusion [facility] [address] [place] [address] [address] [place] [address] 12/31/2024 1:30 PM EST Office Visit [facility] Dig[facility] Health Care, A Department of [facility] 5700 [facility] 103 [place] [address] Josephine Turner PA 5700 [facility]. [address] [place] [address] 01/11/2025 1:45 PM EST Office Visit [facility] V[facility] [address] [phone] Cee Sagastume, FRUIT DISTRIBUTOR-DOOR PERSON [address] [place] [address], [address] [place] [address] documented as of this encounter Visit Diagnoses Not on filedocumented in this encounter Additional Health Concerns Infection Onset Date Last Indicated Resolved Time COVID-19 Rule-Out 12/25/2020 12/22/2020 12/25/2020 4:25 PM EST Enteric Rule-Out 07/18/2021 07/18/2021 07/19/2021 4:20 AM EDT COVID-19 Rule-Out 03/24/2022 03/24/2022 03/24/2022 10:15 PM EST COVID-19 Positive 03/24/2022 03/24/2022 04/14/2022 11:12 PM EST Assessment Noted Time PHQ-9 Depression Total Score: 21 020 1:00 PM EDT documented as of this encounter Care Teams Irrigation Supervisor Relationship Specialty Start Date End Date Hilary Aviles, FRUIT DISTRIBUTOR-DOOR PERSON [address], [place] [address] PCP - General Family Medicine 01/03/24 documented as of this encounter
--- OUTSIDE RECORDS SUMMARY | 2024-10-18 21:05 | XMS_ITS | Encounter Summary ---
Author Organization [facility] [employer] Sys [employer] Address [id number] [address] [place] [address] Care Team Providers Care Director It Project Name Role Phone TraciHilary jose MANAGER ANALYSIS-PUBLIC AREA ATTENDANT Primary Care Provi lazarus Encounter Details Date Type Department Care Team (Late st Contact Info) Description 11/27/2021 Telephone [facility] Physicians [facility] [address]00 [facility]. [address] [place] [phone] Nic Howard, RN Social History Tobacco Use Types Packs/Day [...] have Coronavirus / COVID-19? No / Unsure 11/26/2021 1:55 PM EDT documented as of this encounter Miscellaneous Notes * Telephone Encounter - Nic Howard RN - 11/27/2021 10:14 AM EDT Patient was in ED yesterday and diagnosed with viral URI with cough. Patient called and tried to rescheduled for next week no answer voicemail left. documented in this encounter Plan of Treatment Upcoming Encounters Date Type Department Care Team (Late st Contact Info) Description 10/28/2024 1:30 PM EDT Office Visit [facility] [address] [place] [address] [place] [phone] Sergio Thompson, [address], [address], [facility] [place] [address] 11/03/2024 1:00 PM EDT Infusion [facility] [address] [place] [phone] 12/02/2024 10:15 AM EDT Office Visit [facility] - Medical Oncology [address] [place] [phone] Quan Diaz MD [address] [place] [address] [address] [place] [address] 12/15/2024 1:00 PM EST Infusion [facility] [address] [place] [phone] 12/31/2024 1:30 PM EST Office Visit [facility] Care, A Department of [address] [phone] [place] [address] [place] [address] 01/11/2025 1:45 PM EST Office Visit [facility] V[facility] [address] [place] [address] Cee Sagastume, MANAGER ANALYSIS-PUBLIC AREA ATTENDANT [address] [facility], [address] [place] [address] documented as of this encounter Visit Diagnoses Not on filedocumented in this encounter Additional Health Concerns Infection Onset Date Last Indicated Resolved Time COVID-19 Rule-Out 03/24/2022 03/24/2022 03/24/2022 10:15 PM EST COVID-19 Positive 03/24/2022 03/24/2022 04/14/2022 11:12 PM EST Assessment Noted Time PHQ-9 Depression Total Score: 11 11/23/ 021 1:00 PM EDT documented as of this encounter Care Teams Director It Project Relationship Specialty Start Date End Date Hilary Aviles, MANAGER ANALYSIS-PUBLIC AREA ATTENDANT [address], [address] [place], [place] [phone] PCP - General Family Medicine 01/03/24 documented as of this encounter
--- OUTSIDE RECORDS SUMMARY | 2024-10-18 21:05 | XMS_ITS | Encounter Summary ---
Author Organization [employer] Sys tem Address [facility]-[id number] [address] [place] [address] Care Team Providers Care Saturator Tender Name Role Phone TraciHilary jose FAMILY AND DIVORCE LEGAL ASSISTANT-APARTMENT MAINTENANCE WORKER Primary Care Provi lazarus Reason for Visit * Reason Onset Date Comments Med Refill 07/07/2020 Encounter Details Date Type Department Care Team (Late st Contact Info) Description 07/07/2020 Refill [facility]ive [address] [phone] Dina Zarco, RN Crohn's disease of both small and large intestine with intestinal obstruction ([facility]) Social History Tobacco Use Types Packs/Day Years [...] Department Care Team (Late Contact Info) Description 10/28/2024 1:30 PM EDT Office Visit [facility] [address] [place] [address] [place] [phone] Sergio Thompson, 605 [facility], [address], [place] [address] 11/03/2024 1:00 PM EDT Infusion [facility] [address] [place] [address] [address] [place] [phone] 12/02/2024 10:15 AM EDT [facility] [address] [facility] [place] [address] [place] [address] [place] [address] [address] [place] [address] 12/15/2024 1:00 PM EST Infusion [facility] [address] [facility] [address] [place] [phone] 12/31/2024 1:30 PM EST Office Visit [facility] Dig[facility]ive Health Care, A Department of [facility] [address] [place] [phone] Josephine Turner PA [address]00 [facility]. [address] [place] [address] 01/11/2025 1:45 PM EST Office Visit [facility] V[facility] Surgery 2751 [facility] [address] [place] [address] Cee Sagastume, FAMILY AND DIVORCE LEGAL ASSISTANT-APARTMENT MAINTENANCE WORKER [address] [facility], [address] [place] [address] documented as of this encounter Visit Diagnoses Diagnosis Crohn's disease of both small and large intestine with intestinal obstruction (CMS-HCC) documented in this encounter Additional Health Concerns Infection Onset Date Last Indicated Resolved Time COVID-19 Rule-Out 12/25/2020 12/22/202012/25/2020 4:25 PM EST Enteric Rule-Out 07/18/2021 07/18/2021 07/19/2021 4:20 AM EDT COVID-19 Rule-Out 03/24/2022 03/24/2022 03/24/2022 10:15 PM EST COVID-19 Positive 03/24/2022 03/24/2022 04/14/2022 11:12 PM EST Assessment Noted Time PHQ-9 Depression Total Score: 21 020 1:00 PM EDT documented as of this encounter Care Teams Saturator Tender Relationship Specialty Start Date End Date Hilary Aviles, FAMILY AND DIVORCE LEGAL ASSISTANT-APARTMENT MAINTENANCE WORKER [address], [place] [address] PCP - General Family Medicine 01/03/24 documented as of this encounter
--- OUTSIDE RECORDS SUMMARY | 2024-10-18 21:05 | XMS_ITS | Encounter Summary ---
Author Organization [facility] Sys [facility] Address [id number] [address] [place] [address] Care Team Providers Care Establishment Guide Name Role Phone TraciHilary jose GARMENT PATTERNMAKER-PLANTING SUPERVISOR Primary Care Provi lazarus Reason for Visit * Reason Onset Date Comments inflectra auth 10/29/2019 Encounter Details Date Type Department Care Team (Late st Contact Info) Description 10/29/2019 Telephone [facility] [address] [place] [phone] Kamila Cam RN inflectra auth Social History Tobacco Use Types Packs/Day Years Used Date Smoking Tobacco: Never Smokeless Tobacco: Never Alcohol Use Standard Drinks/Week Comments No 0 (1 standard drink = 0.6 oz pur e alcohol) PHQ-2 Answer Date Recorded PHQ-2 Score 0 06/23/2019 Childcare Answer Date Recorded Childcare Unknown 07/10/2018 [...] have Coronavirus / COVID-19? No / Unsure 11/01/2019 1:38 PM EDT documented as of this encounter Miscellaneous Notes * Telephone Encounter - Kamila Cam RN - 10/29/2019 8:32 AM EDT Archimedes requesting additional information for inflectra prior auth, faxed urgent . Kamila Cam RN 10/29/19 0832 * Telephone Encounter - Kamila Cam RN - 10/29/2019 8:32 AM EDT Received denial for inflectra, requiring CDAI scoring. Called pt, naswered questions, faxed back toalison, marked urgent. Kamila Cam RN 11/01/19 1516 documented in this encounter Plan of Treatment Upcoming Encounters Date Type Department Care Team (Late st Contact Info) Description 10/28/2024 1:30 PM EDT Office Visit [facility] [address] [place] [address] [place] [address] Sergio Thompson, [address] [place] [address], [address], [address] [place], [place] [address] 11/03/2024 1:00 PM EDT Infusion [facility] [address] [phone] 12/02/2024 10:15 AM EDT Office Visit [facility]0 [place] [address] [place] [address] [place] [address] [address] [place] [address] 12/15/2024 1:00 PM EST Infusion [facility] 5700 [facility] [address] [place] [phone] 12/31/2024 1:30 PM EST Office Visit [facility], A Department of [facility] 5700 [facility] 103 [place] [phone] Josephine Turner, PA [address] [facility]. [address] [place] [address] 01/11/2025 1:45 PM EST Office Visit [facility] 2751 [facility] 302 [place] [phone] Cee Sagastume, GARMENT PATTERNMAKER-PLANTING SUPERVISOR 5700 [facility], [address] [place] [address] documented as of this encounter Visit Diagnoses Not on filedocumented in this encounter Additional Health Concerns Infection Onset Date Last Indicated Resolved Time COVID-19 Rule-Out 12/25/2020 12/22/2020 12/25/2020 4:25 PM EST Enteric Rule-Out 07/18/2021 07/18/2021 07/19/2021 4:20 AM EDT COVID-19 Rule-Out 03/24/2022 03/24/2022 03/24/2022 10:15 PM EST COVID-19 Positive 03/24/2022 03/24/2022 04/14/2022 11:12 PM EST Assessment Noted Time PHQ-9 Depression Total Score: 0 08/25/19 20 9:00 AM EDT documented as of this encounter Care Teams Establishment Guide Relationship Specialty Start Date End Date Hilary Aviles, GARMENT PATTERNMAKER-PLANTING SUPERVISOR [address], [place] [address] PCP - General Family Medicine 01/03/24 documented as of this encounter
--- OUTSIDE RECORDS SUMMARY | 2024-10-18 21:05 | XMS_ITS | Encounter Summary ---
Author Organization [employer] Sys tem Address [facility] [id number] [address] [place] [address] Care Team Providers Care Catcher Plug Name Role Phone Hilary Aviles NUTRITION TECHNICIAN-FAMILY PRACTICE PHYSICIAN ASSISTANT Primary Care Provi lazarus Encounter Details Date Type Department Care Team (Late st Contact Info) Description 04/20/2024 [facility]phone [facility] [address] [facility]. [address] [place] [address] Ariane Jarquin CMA Social History Tobacco Use Types Packs/Day Years Used Date Smoking Tobacco: Never Smokeless Tobacco: Never Alcohol Use Standard Drinks/Week Comments No 0 (1 standard drink = 0.6 oz pur e alcohol) PHQ-2 Answer Date Recorded Total Score 15 09/17/2023 Childcare Answer Date Recorded Childcare Unknown 07/10/2018 Employment Answer Date Recorded Employment Unknown 07/10/2018 Hunger Screening Answer Date Recorded Within the past 12 months we worried whether our food would run out before we got money to buy more. Never True 04/19/2024 Within the past 12 months th e food we bought just didn't last and we didn't have money to get more. Never True 04/19/2024 Purpose - Life Answer Date Recorded Purpose and direction in life Unknown Comments Yes Sex and Gender Information Value Date Recorded Sex Assigned at Not on file Legal Sex Female 9:19 PM EDT Gender Identity Not on file Sexual Orientation Not on file documented as of this encounter Miscellaneous Notes * Telephone Encounter - Ariane Jarquin CMA - 04/20/2024 10:43 AM EDT Patient called in stating she is still having some abdominal pain on and off every few minutes evenafter her infusion yesterday. She states this is separate, she took all her pills at once and vomited a hour and a half later andwonder is she should take her Azathioprine again or would it already be absorbed. Please advise. * Telephone Encounter - Sharda Montiel MD - 04/20/2024 10:43 AM EDT I would give it a little more time after her infusion to see if her sx improve. As for the pills, they may have already passed into the small intestine. Do not recommend taking additional dose. documented in this encounter Plan of Treatment Upcoming Encounters Date Type Department Care Team (Late st Contact Info) Description 10/28/2024 1:30 PM EDT Office Visit [facility] [address] [place] [address] [place] [address] Sergio Thompson, [address] [facility], [facility] [address], [place] [address] 11/03/2024 1:00 PM EDT Infusion [facility] 5700 [facility] 114 [place] [address] 12/02/2024 10:15 AM EDT Office Visit [facility] 2[address] [place] [address] Quan Diaz MD [address] [place] [address] [address] [place] [address] 12/15/2024 1:00 PM EST Infusion [facility] 5700 [facility] [address] [place] [phone] 12/31/2024 1:30 PM EST Office Visit [facility], A Department of [facility] 5700 [facility] 103 [place] [phone] Josephine Turner, PA [address] [facility]. [address] [place] [address] 01/11/2025 1:45 PM EST Office Visit [facility] 2751 [facility] 302 [place] [phone] Cee Sagastume, NUTRITION TECHNICIAN-FAMILY PRACTICE PHYSICIAN ASSISTANT 5700 [facility], [address] [place] [address] documented as of this encounter Visit Diagnoses Not on filedocumented in this encounter Additional Health Concerns Assessment Noted Time PHQ-9 Depression Total Score: 15 024 9:44 AM EDT documented as of this encounter Care Teams Catcher Plug Relationship Specialty Start Date End Date Hilary Aviles, NUTRITION TECHNICIAN-FAMILY PRACTICE PHYSICIAN ASSISTANT [address], [place] [address] PCP - General Family Medicine 01/03/24 documented as of this encounter
--- OUTSIDE RECORDS SUMMARY | 2024-10-18 21:05 | XMS_ITS | Encounter Summary ---
Author Organization [facility] [employer] Sys tem Address [facility] [id number] [address] [place] [address] Care Team Providers Care Registered Nurse Bone Marrow Transplant Name Role Phone Hilary Aviles LINUX SYSTEM ADMIN-WHALE FISHERMAN Primary Care Provi lazarus Encounter Details Date Type Department Care Team (Late st Contact Info) Description 10/14/2019 Telephone [facility] 5700 [facility] [address] [place] [phone] Kamila Cam RN Social History Tobacco Use [...] have Coronavirus / COVID-19? No / Unsure 10/11/2019 3:48 PM EDT documented as of this encounter Miscellaneous Notes * Telephone Encounter - Kamila Cam RN - 10/14/2019 11:38 AM EDT Left message for pt, informed of entyvio appeal denial. Kamila Cam RN 10/14/19 1138 documented in this encounter Plan of Treatment Upcoming Encounters Date Type Department Care Team (Late st Contact Info) Description 10/28/2024 1:30 PM EDT Office Visit [facility] [address] [place] [address] [place] [address] Sergio Thompson, [address] [place] [address], [address], [place] [address] 11/03/2024 1:00 PM EDT Infusion [facility]fusion [address] [place] [phone] 12/02/2024 10:15 AM EDT Office Visit [facility] On[facility] [address] [place] [address] Quan Diaz MD [address] [place] [address] [address] [place] [address] 12/15/2024 1:00 PM EST Infusion [facility] [address] [place] [phone] 12/31/2024 1:30 PM EST Office Visit [facility], A Department of [address] [address] [place] [address] [place] [address] [address] [place] [address] 01/11/2025 1:45 PM EST Office Visit [facility] [address] [phone] Cee Sagastume, LINUX SYSTEM ADMIN-WHALE FISHERMAN [address] [place] [address] [address] [place] [address] documented as of this encounter Visit Diagnoses [...] Time PHQ-9 Depression Total Score: 0 08/25/19 9:00 AM EDT documented as of this encounter Care Teams Registered Nurse Bone Marrow Transplant Relationship Specialty Start Date End Date Hilary Aviles, PAUL-LUIGI [address] [facility] [address], [place] [address] PCP - General Family Medicine 01/03/24 documented as of this encounter
--- OUTSIDE RECORDS SUMMARY | 2024-10-18 21:05 | XMS_ITS | Encounter Summary ---
Author Organization [facility] [employer] Sys tem Address [facility] [id number] [address] [place] [address] Care Team Providers Care Field Professional Name Role Phone Hilary Aviles SUPPORT ASSISTANT-SALT MANAGER Primary Care Provi [facility] Encounter Details Date Type Department Care Team (Late st Contact Info) Description 08/03/2024 Orders Only [facility] [address] [place] [phone] Marlen Goldman APRN-CNP [address] [place] [address] Other iron deficiency anemia Social History Tobacco Use Types Packs/Day Years Used Date Smoking Tobacco: Never Smokeless Tobacco: Never Alcohol Use Standard Drinks/Week Comments No 0 (1 standard drink = 0.6 oz pur e alcohol) [facility] Utilities Answer Date Recorded In the past 12 months has [employer], gas, oil, or water [facility] threatened to shut off services in your [...] things needed for daily living? No 06/17/2024 Benge Depression Scale Answer Date Recorded Benge Depression Scale Total 4 06/21/2024 The thought [...] got money to buy more. Never True 08/02/2024 Within the past 12 months th e food we bought just didn't last and we didn't have money to get more. Never True 08/02/2024 Purpose - Life Answer Date Recorded Purpose [...] Office Visit [facility] [address] [place] [address] [place] [address] Sergio Thompson, DO 605 [facility], [address], [place] [address] 11/03/2024 1:00 PM EDT Infusion [facility] 5700 [facility] [address] [place] [phone] 12/02/2024 10:15 AM EDT Office Visit [facility] On[facility] [address] [place] [phone] Quan Diaz MD [address] [facility] [address] [place] [address] 12/15/2024 1:00 PM EST Infusion [facility] [address] [facility] [address] [place] [phone] 12/31/2024 1:30 PM EST Office Visit [facility] Dig[facility]ive [facility] Care, A Department of [facility] 5700 [facility] 103 [place] [address] Josephine Turner PA [address] [facility]. [address] [place] [address] 01/11/2025 1:45 PM EST Office Visit [facility] 2751 [facility] 302 [place] [phone] Cee Sagastume, SUPPORT ASSISTANT-SALT MANAGER 5700 [facility], [address] [place], [place] [phone] documented as of this encounter Goals Goal Patient Goal Type Associated Problems Recent Progress Patient-Stated? Author <enter goal here> General Yes Nikky Berger LSW Note: Evaluation of progress towards goal: pt would like to return home with family support vs going to [facility] while her baby remains in NICU documented as of this encounter Visit Diagnoses Diagnosis Other iron deficiency anemia documented in this encounter Additional Health Concerns Assessment Noted Time PHQ-9 Depression Total Score: 0 08/03/19 25 2:12 PM EDT documented as of this encounter Care Teams Field Professional Relationship Specialty Start Date End Date Hilary Aviles, SUPPORT ASSISTANT-SALT MANAGER [address], Matthew [address] [place], [place] [address] PCP - General Family Medicine 01/03/24 documented as of this encounter
--- OUTSIDE RECORDS SUMMARY | 2024-10-18 21:05 | XMS_ITS | Encounter Summary ---
Author Organization [facility] tem Address [facility] [id number] [address] [place] [address] Care Team Providers Care Pharmaceutical Specialty Representative Name Role Phone Hilary Aviles APRN-UX LEAD Primary Care Provi lazarus Encounter Details Date Type Department Care Team (Late st Contact Info) Description 12/21/2019 Documentation [facility] On[facility] [address] [place] [phone] Carolina Mcghee, [facility] [address] [place] [phone] Social History Tobacco Use Types Packs/Day Years [...] have Coronavirus / COVID-19? No / Unsure 12/19/2019 7:28 PM EST documented as of this encounter Plan of Treatment Upcoming Encounters Date Type Department Care Team (Late st Contact Info) Description 10/28/2024 1:30 PM EDT Office Visit [facility] [address] [place] [address] [place] [phone] Sergio Thompson, [address] [place], [address], [address] [place], [place] [address] 11/03/2024 1:00 PM EDT Infusion [facility] [address] [place] [address] [address] [place] [phone] 12/02/2024 10:15 AM EDT [facility] [address] [place] [phone] [place] [address] [place] [address] [place] [address] 12/15/2024 1:00 PM EST Infusion [facility] 5700 [facility] 114 [place] [phone] 12/31/2024 1:30 PM EST [facility], [facility] [address] [place] [address] [address] [place] [phone] Josephine Turner, PA [address] [facility]. [address] [place] [address] 01/11/2025 1:45 PM EST Office Visit [facility] 2751 [facility] 302 [place] [phone] Cee Sagastume, BEREAVEMENT PROGRAM COORDINATOR-UX LEAD 5700 [facility], [address] [place] [address] documented as of this encounter Visit Diagnoses [...] documented as of this encounter Care Teams Pharmaceutical Specialty Representative Relationship Specialty Start Date End Date Hilary Aviles, BEREAVEMENT PROGRAM COORDINATOR-UX LEAD [address], [place] [address] PCP - General Family Medicine 01/03/24 documented as of this encounter
--- OUTSIDE RECORDS SUMMARY | 2024-10-18 21:05 | XMS_ITS | Encounter Summary ---
Author Organization [facility] Address [address] [facility] [place] [address] Care Team Providers Care Plunket Nurse Name Role Phone Hilary Aviles MD Unavailable [phone] Encounter Details Date Type Department Care Team (Late Contact Info) Description 04/19/2024 Abstract [facility] [address] [place] [address] [place] [address] Parish Valdez DO [facility] Nereida Jarrett, [place] [address] Social History Tobacco Use Types Packs/Day Years [...] 1:00 PM EDT Procedure Visit JESSICA TAYLOR [facility] [place] [address] Parish Valdez, DO [address] Nereida Jarrett, [facility] documented as of this encounter Visit Diagnoses Not on filedocumented in this encounter Care Teams Plunket Nurse Relationship Specialty Start Date End Date Hilary Aviles MD [address] [place] [address] Referring Physician Nurse Practitioner 10/08/22 documented as of this encounter
--- OUTSIDE RECORDS SUMMARY | 2024-10-18 21:05 | XMS_ITS | Encounter Summary ---
Author Organization [email or web address] Address [id number] [address] [place] [address] Care Team Providers Care Aquatic Scientist Name Role Phone TraciHilary jose CORN CUTTER OPERATOR-CONTROL PANEL ASSEMBLER Primary Care Provi lazarus Encounter Details Date Type Department Care Team (Late st Contact Info) Description 09/25/2020 Documentation [facility] [phone] Suleiman Kaufman RN Social History Tobacco Use Types Packs/Day Years Used Date Smoking Tobacco: Never Smokeless Tobacco: Never Alcohol Use Standard Drinks/Week Comments No 0 (1 standard drink = 0.6 oz pur e alcohol) PHQ-2 Answer Date Recorded Total Score 23 09/27/2020 Childcare Answer Date Recorded Childcare Unknown 07/10/2018 [...] have Coronavirus / COVID-19? No / Unsure 09/27/2020 8:36 AM EDT documented as of this encounter Nursing Notes * Suleiman Kaufman RN - 09/25/2020 10:42 AM EDT Phone call to patient and left message. She completed her infusion treatments. Set orders for follow up labs to be drawn after 11/06/20 for reevaluation. documented in this encounter Plan of Treatment Upcoming Encounters Date Type Department Care Team (Late st Contact Info) Description 10/28/2024 1:30 PM EDT Office Visit [facility] [address] [place] [address] [place] [phone] Sergio Thompson, [address] [place] [address], [address], [place] [address] 11/03/2024 1:00 PM EDT Infusion [facility] In[facility] [address] [place] [phone] 12/02/2024 10:15 AM EDT Office Visit [facility] [address] [place] [phone] [place] [address] [place] [address] [address] [place] [phone] 12/15/2024 1:00 PM EST Infusion [facility] [address] [place] [phone] 12/31/2024 1:30 PM EST Office Visit [facility], A Department of [address] [phone] [place] [address] [place] [address] 103 [place] [address] 01/11/2025 1:45 PM EST [facility] [address] [phone] Cee Sagastume, CORN CUTTER OPERATOR-CONTROL PANEL ASSEMBLER 5700 [facility], [address] [place] [address] documented as of this encounter Visit Diagnoses Not on filedocumented in this encounter Additional Health Concerns Infection Onset Date Last Indicated Resolved Time COVID-19 Rule-Out 12/25/2020 12/22/2020 12/25/2020 4:25 PM EST Enteric Rule-Out 07/18/2021 07/18/2021 07/19/2021 4:20 AM EDT COVID-19 Rule-Out 03/24/2022 03/24/2022 03/24/2022 10:15 PM EST COVID-19 Positive 03/24/2022 03/24/2022 04/14/2022 11:12 PM EST Assessment Noted Time PHQ-9 Depression Total Score: 0 08/31/19 21 3:00 PM EDT documented as of this encounter Care Teams Aquatic Scientist Relationship Specialty Start Date End Date Hilary Aviles, CORN CUTTER OPERATOR-CONTROL PANEL ASSEMBLER [address] [facility] [address], [place] [address] PCP - General Family Medicine 01/03/24 documented as of this encounter
--- OUTSIDE RECORDS SUMMARY | 2024-10-18 21:05 | XMS_ITS | Encounter Summary ---
Author Organization [facility] Address [facility] [id number] [address] [place] [address] Care Team Providers Care Manager It Security Name Role Phone Hilary Aviles COLLECTION SPECIALIST-TRANSLATOR Primary Care Provi lazarus Reason for Visit * Reason Comments Med Refill Encounter Details Date Type Department Care Team (Late Contact Info) Description 05/28/2020 Refill [facility] [address] [place] [phone] Hilary Aviles, TERA [address] [facility] B, [place], [place] [phone] Psoriasis of scalp Social History Tobacco Use Types Packs/Day Years [...] Office Visit [facility] [address] [place] [address] [place] [phone] Sergio Thompson, 605 [facility], [address], [address] [place], [place] [address] 11/03/2024 1:00 PM EDT Infusion [facility] [address] [place] [address] [address] [place] [phone] 12/02/2024 10:15 AM EDT Office Visit [facility] - Medical Oncology [address] [place] [phone] [place] [address] [place] [address] [address] [place] [address] 12/15/2024 1:00 PM EST Infusion [facility] [address] [place] [address] [address] [place] [phone] 12/31/2024 1:30 PM EST Office Visit [facility], A Department of [facility] [address] [place] [address] 103 [place] [phone] Josephine Turner, PA [address] [facility]. [address] [place] [address] 01/11/2025 1:45 PM EST Office Visit [facility] 2751 [facility] [address] [place] [phone] eCe Sagastume, COLLECTION SPECIALIST-TRANSLATOR [address] [place] [address], [address] [place] [address] documented as of this encounter Visit Diagnoses Diagnosis Psoriasis of scalp documented in this encounter Additional Health Concerns [...] documented as of this encounter Care Teams Manager It Security Relationship Specialty Start Date End Date Hilary Aviles, COLLECTION SPECIALIST-TRANSLATOR [address], [place] [address] PCP - General Family Medicine 01/03/24 documented as of this encounter
--- OUTSIDE RECORDS SUMMARY | 2024-10-18 21:05 | XMS_ITS | Encounter Summary ---
Author Organization Code71 Sys tem Address [id number] [address] [place] [address] Care Team Providers Care [employer] Inspector Name Role Phone Hilary Aviles EMPLOYEE PLACEMENT SPECIALIST-NIGHT NURSE Primary Care Provi lazarus Encounter Details Date Type Department Care Team (Late st Contact Info) Description 11/29/2019 Telephone [facility] [address] [place] [address] [place] [address] Roxanne Staley CMA Social History Tobacco Use Types Packs/Day [...] have Coronavirus / COVID-19? No / Unsure 11/29/2019 12:58 PM EDT documented as of this encounter Miscellaneous Notes * Telephone Encounter - Roxanne Staley CMA - 11/29/2019 1:21 PM EDT Patient called and would like to return to work on 12/01/18. She states she will be on the[employer] for 2 weeks time at that point and she'd like to return to work. She denies feeling an better but states she doesn't feel worse either. Advise? Roxanne Staley CMA 11/29/19 1322 * Telephone Encounter - TERA Church - 11/29/2019 1:21 PM EDT Fine to give her a return to work. New meds may take up to 3-4 weeks before notice a difference. Needs to continue medication * Telephone Encounter - Roxanne Staley CMA - 11/29/2019 1:21 PM EDT Return to work note written and faxed back to [facility]. 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 documented in this encounter Plan of Treatment Upcoming Encounters Date Type Department Care Team (Late st Contact Info) Description 10/28/2024 1:30 PM EDT Office Visit [facility] [address] [place] [address] [place] [address] Sergio Thompson, [address] [facility], [address] [place], [place] [id number] 11/03/2024 1:00 PM EDT Infusion [facility] [address] [phone] 12/02/2024 10:15 AM EDT Office Visit [facility] [address] [place] [address] Quan Diaz MD [address] [place] [address] [address] [place] [address] 12/15/2024 1:00 PM EST Infusion [facility] [address] [place] [address] [address] [place] [phone] 12/31/2024 1:30 PM EST Office Visit [facility], [facility] of [facility] [address] [facility] [address] [place] [phone] Josephine Turner PA [address] [facility]. [address] [place] [address] 01/11/2025 1:45 PM EST Office Visit [facility] [address] [facility] [address] [place] [address] Cee Sagastume, EMPLOYEE PLACEMENT SPECIALIST-NIGHT NURSE [address] [facility] [place] [address] documented as of this encounter Visit Diagnoses [...] documented as of this encounter Care Teams [employer] Inspector Relationship Specialty Start Date End Date Hilary Aviles, EMPLOYEE PLACEMENT SPECIALIST-NIGHT NURSE [address], [place] [address] [place], [place] [id number] PCP - General Family Medicine 01/03/24 documented as of this encounter
--- OUTSIDE RECORDS SUMMARY | 2024-10-18 21:05 | XMS_ITS | Clinical Summary ---
Author Organization [employer] Address [id number] [address] [place] [address] Care Team Providers Care Tin Whiz Machine Operator Name Role Phone Hilary Aviles APRN-BANKING CENTER MANAGER Primary Care Provi lazarus Allergies Active Allergy Reactions Criticality Noted Date Comments Sertraline Diarrhea 11/09/2018 Pt reports this is not an allergy Medications folic acid (FOLVITE) 1 mg tabletIndication s:26 weeks gestation of Take 1 tablet (1 mg total) by mouth in the morning. 05/06/2024 Active apixaban (ELIQUIS) 5 mg tabletIndication s:Other acute pulmonary embolism without acute cor pulmonale (CMS-HCC),Acute deep vein thrombosis (DVT) of distal end of right lower extremity (CMS-HCC) Take 1 tablet (5 mg total) by mouth in the morning and 1 tablet (5 mg total) before bedtime. 180 tablet 1 07/08/2024 Active cyclobenzaprine (FLEXERIL) 10 mg tabletIndication s:Acute midline low back pain without sciatica Take 1 tablet (10 mg total) by mouth every 8 (eight) hours as needed for muscle spasms. 30 tablet 1 08/02/2024 Active ferric maltol (ACCRUFER) 30 mg capsuleIndicatio ns:Iron deficiency anemia, unspecified iron deficiency anemia type Take 30 mg by mouth in the morning and 30 mg before bedtime. 60 capsule 3 08/03/2024 Active azaTHIOprine (IMURAN) 50 mg tabletIndication s:Crohn's disease of both small and large intestine with intestinal obstruction (CMS-HCC) Take 4 tablets (200 mg total) by mouth in the morning. 120 tablet 09/13/2024 Active Active Problems Problem Noted Date Diagnosed Date History of epidural anesthesia 08/11/2024 Acute midline low back pain without sciatica History of small bowel obstruction 06/28/2024 Pulmonary embolism 06/16/2024 Current moderate episode of major depressive disorder without prior episode 09/03/2023 Iron deficiency anemia, unspecified 08/28/2020 Iron malabsorption 08/28/2020 Vitamin B 12 deficiency 07/08/2019 Anemia 07/02/2019 Difficulty sleeping 01/13/2019 Psoriasis of scalp 12/14/2018 Anxiety 12/14/2018 Pain in both feet 12/14/2018 Reactive depression 11/09/2018 Microcytic anemia 07/17/2018 Iron deficiency anemia due to chronic blood loss 07/17/2018 Crohn's disease of both smal l and large intestine with intestinal obstruction 03/03/2018 Anemia affecting fourth 05/15/2017 Assessment & Plan (05/06/2024 1:03 PM EDT): Patient with history of anemia and iron malabsorption due to chronic inflammatory bowel disease. Hemoglobin on 05/04 was 9.4 begin iron supplement that she had been prescribed. Advised patient that some of her symptoms of shortness of breath and tachycardia could be a result of low hemoglobin levels during Resolved Problems Problem Noted Date Diagnosed Date Resolved Date Lumbar strain, initial encounter 08/02/2024 08/11/2024 Abdominal pain 05/30/2024 06/28/2024 HTN complicating peripregnan cy, antepartum, second trimester 05/06/2024 08/02/2024 Assessment & Plan (05/06/2024 1:02 PM EDT): Patient presents with mildly elevated blood pressure [...] or chest pain to seek medical care. 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 Colon stricture 04/02/2018 08/29/2020 Bowel obstruction 10/17/2017 08/29/2020 Diarrhea 10/17/2017 05/08/2022 Overview (10/20/2017): Added automatically from request for surgery [id number] History of maternal fourth d egree perineal laceration, currently 06/21/2017 History of prior w ith short cervix, currently 06/21/2017 08/29/2020 Encounters Date Type Department Care Team Description 09/22/2024 1:00 PM EDT Infusion [facility] Infusion [address] [facility] [address] [place] [phone] Crohn's disease of both small and large intestine with intestinal obstruction (CMS-HCC) (Primary Dx) 09/13/2024 Refill [facility] Care, A Department of [place] [id number] [facility] [address] [address] [place] [phone] Anai Saunedrs CMA Crohn's disease of both small and large intestine with intestinal obstruction (CMS-HCC) (Primary Dx) 09/08/2024 3:40 AM EDT - 09/08/2024 7:22 AM EDT Emergency [facility] - Emergency [address] [place] [address] Jourdan Shoemaker MD Left upper quadrant abdominal pain (Primary Dx); Left ovarian cyst Discharge Disposition: Home 09/08/2024 Travel 08/25/2024 9:00 AM EDT Infusion [facility] - Medical Oncology [address] [place] [address] Iron malabsorption (Primary Dx); Iron deficiency anemia due to chronic blood loss; Iron deficiency anemia, unspecified 08/25/2024 Travel 08/17/2024 Telephone [facility], [facility] Department of [facility] [address] [facility] [address] [place] [address] Yeison Velasco CMA 08/12/2024 Orders Only [facility] [address] [facility] [address] [place] [phone] Marlen Goldman DISTRICT CLAIMS MANAGER-BANKING CENTER MANAGER Iron deficiency anemia due to chronic blood loss (Primary Dx); Iron malabsorption; Iron deficiency anemia, unspecified 08/11/2024 11:40 AM EDT Telemedicine [facility] [address] [place] [address] [place] [address] Hilary Aviles APRN-BANKING CENTER MANAGER History of epidural anesthesia (Primary Dx); Acute midline low back pain without sciatica 08/09/2024 10:00 AM EDT Infusion [facility] Infusion [address] [facility] [address] [place] [address] Crohn's disease of both small and large intestine with intestinal obstruction ([facility]-HCC) (Primary Dx) 08/09/2024 Travel 08/04/2024 Orders Only [facility] [address] [place] [address] [place] [address] Hilary Aviles DISTRICT CLAIMS MANAGER-BANKING CENTER MANAGER Lumbar pain (Primary Dx) 08/04/2024 Telephone [facility] [address] [place] [address] RomeroCecelia casas RN 08/03/2024 9:30 AM EDT Telemedicine [facility] [address] [place] [address] Marlen Goldman APRN-CNP Iron deficiency anemia due to chronic blood loss (Primary Dx); Iron deficiency anemia, unspecified iron deficiency anemia type; Iron malabsorption; Iron deficiency anemia, unspecified 08/03/2024 Travel 08/03/2024 Orders Only [facility] [address] [place] [address] Marlen Goldman APRN-CNP Other iron deficiency anemia 08/02/2024 5:06 PM EDT - 08/02/2024 7:03 PM EDT Emergency [facility] - Emergency [address] [place] [address] Lashell Martin, Musculoskeletal pain of lower extremity, unspecified laterality (Primary Dx); Encounter for medical screening examination Discharge Disposition: Home 08/02/2024 2:00 PM EDT Office Visit [facility] [address] [place] [address] Hilary Aviles APRN-CNP Lumbar strain, initial encounter (Primary Dx); Acute midline low back pain without sciatica; Other acute pulmonary embolism without acute cor pulmonale (CMS-HCC); Iron deficiency anemia, unspecified; Iron malabsorption; Crohn's disease of both small and large intestine with intestinal obstruction (CMS-HCC) 08/02/2024 Travel 08/02/2024 Telephone [facility] [address] [place] [address] Hilary Aviles APRN-CNP 07/27/2024 Orders Only [facility] [address] [facility] [address] [place] [address] Lupe Barba, JAD Crohn's disease of both small and large intestine with intestinal obstruction (CMS-HCC) (Primary Dx) from Last 3 Months Immunizations No known immunizations Family History Medical History Relation Name Comments Anemia Mother Diabetes Mother Heart failure Mother Hypertension Mother Stroke Mother Colon cancer Neg Hx Relation Name Status Comments Father Alive Maternal Grandfather Maternal Grandmother Mother Paternal Grandfather Paternal Grandmother Social History Tobacco Use Types Packs/Day Years Used Date Smoking Tobacco: Never Smokeless Tobacco: Never Tobacco Cessation:Counseling Given: Not Answered Alcohol Use Standard Drinks/Week Comments No 0 (1 standard drink = 0.6 oz pur e alcohol) C Utilities Answer Date Recorded In the past 12 months has th e [employer], gas, oil, or water company threatened to [...] things needed for daily living? No 06/17/2024 Williams Depression Scale Answer Date Recorded Williams Depression Scale Total 4 06/21/2024 The thought [...] on file Sexual Orientation Not on file Last Filed Vital Signs Vital Sign Reading Time Taken Comments Blood Pressure 121/77 09/22/2024 2:30 PM EDT Pulse 77 09/22/2024 2:30 PM EDT Temperature 36.8 C (98.3 F) 09/22/2024 2:30 PM EDT Respiratory Rate 18 09/22/2024 2:30 PM EDT Oxygen Saturation 100% 09/08/2024 7:00 AM EDT Inhaled Oxygen Concentration - - Weight 73.2 kg (161 lb 6.4 oz) 09/22/2024 12:55 PM EDT Height 165.1 cm (5' 5 ) 09/08/2024 3:48 AM EDT Body Mass Index 26.86 09/08/2024 3:48 AM EDT Plan of Treatment Upcoming Encounters Date Type Department Care Team (Late st Contact Info) Description 10/28/2024 1:30 PM EDT Office Visit [facility] [address] [place] [address] [place] [address] Sergio Thompson, [address] [place] [address], [address], [place] [address] 11/03/2024 1:00 PM EDT Infusion [facility] In[facility] [address] [place] [phone] 12/02/2024 10:15 AM EDT Office Visit [facility] [place] [phone] Quan Diaz MD [address] [place] [address] [address] [place] [address] 12/15/2024 1:00 PM EST Infusion [facility] [address] [facility] [address] [place] [phone] 12/31/2024 1:30 PM EST Office Visit [facility] Department of [facility] [address] [facility] [address] [place] [address] Josephine Turner PA [address] [facility] [place] [address] 01/11/2025 1:45 PM EST Office Visit [facility] [address] [facility] [address] [place] [address] Cee Sagastume, DISTRICT CLAIMS MANAGER-BANKING CENTER MANAGER [address] [facility] [place] [address] Health Maintenance Due Date Last Done Comments Adult BMI Follow Up Plan 11/11/2007 DTaP,Tdap and Td Vaccines (1 - Tdap) 2008 Influenza Vaccine 10/11/2024 Depression Screening 08/02/2025 08/02/2024, 06/22/19 25 Tobacco Screening 09/08/2025 09/08/2024 Adult BMI Screening 09/22/2025 09/22/2024 Pap Smear 09/16/2026 09/17/2023 Goals Goal Patient Goal Type Associated Problems Recent Progress Patient-Stated? Author <enter goal here> General Yes Nikky Berger LSW Note: Evaluation of progress towards goal: pt would like to return home with family support vs going to [facility] while her baby remains in NICU Medical Devices Not on file Procedures Procedure Name Priority Date/Time Associated Diagnosis Comments CT CTA CHEST STAT 09/08/2024 6:20 AM EDT TROP I, HIGH SENSITIVITY 1 HOUR STAT 09/08/2024 5:[address] ABDOMEN AND PELVIS W CONT STAT 09/08/2024 5:[address] CTA CHEST STAT 09/08/2024 4:57 AM EDT POCT , URINE (NUCG) Routine 09/08/2024 4:41 AM EDT POCT NURSING URINE MACROSCOPIC UA Routine 09/08/2024 4:39 AM EDT ECG 12-LEAD STAT 09/08/2024 4:25 AM EDT ER EXTRA URINE MARBLE STAT 09/08/2024 4:21 AM EDT ER EXTRA URINE CULTURE STAT 09/08/2024 4:21 AM EDT ER EXTRA URINE STAT 09/08/2024 4:21 AM EDT EXTRA TUBES BLUE TOP Routine 09/08/2024 4:04 AM EDT EXTRA TUBES Routine 09/08/2024 4:04 AM EDT TROPONIN I, HIGH SENSITIVITY 0 HOUR STAT 09/08/2024 4:04 AM EDT TROPONIN I, HIGH SENSITIVITY 0 HOUR STAT 09/08/2024 4:04 AM EDT LIPASE STAT 09/08/2024 4:04 AM EDT LIVER PANEL STAT 09/08/2024 4:04 AM EDT BASIC METABOLIC PANEL STAT 09/08/2024 4:04 AM EDT CBC WITH AUTO DIFFERENTIAL STAT 09/08/2024 4:04 AM EDT CBC WITH AUTO DIFFERENTIAL STAT 08/02/2024 5:38 PM EDT D-DIMER STAT 08/02/2024 5:37 PM EDT BASIC METABOLIC PANEL STAT 08/02/2024 5:37 PM EDT from Last 3 Months Results * CT angiogram chest (09/08/2024 6:20 AM EDT) Only the most recent of2 resultswithin the time period is included. Anatomical Region Laterality Modality Lung, Body, Chest, Vascular, Body Covera N/A Computed Tomography 09/08/2024 6:40 AM EDT Narrative 09/08/2024 6:52 AM EDT History: LUQ pain worse with inspiration, hx of recent R sided PE, repeat scan as previous CT nondiagnostic due to timing Procedure: Multidetector CT thoracic Angiogram performed with IV contrast without complication, including 3 -D Maximum intensity projection reconstructions constructed under concurrent physician supervision on a independent workstation to optimize vascular assessment. Automated exposure control was utilized. Findings: 3D reformatted images confirm the source data findings. No thrombi identified within first or second order branches of the pulmonary arteries. Assessment for more distal pulmonary emboli is precluded by body habitus. Mediastinum and christie show no acute findings. lungs demonstrate no acute findings Impression: No thrombi identified within first or second order branches of the pulmonary arteries. Assessment for more distal pulmonary emboli is precluded by body habitus. All CT scans at this facility use dose modulation, iterative reconstruction, and/or weight based dosing when appropriate to reduce radiation dose to as low as reasonably achievable. Finalized by Jose Angel Greene MD on 09/08/2024 6:52 AM Procedure Note Jose Angel Greene MD - 09/08/2024 History: LUQ pain worse with inspiration, hx of recent R sided PE, repeat scan asprevious CT nondiagnostic due to timing Procedure: Multidetector CT thoracic Angiogram performed with IV contrast withoutcomplication, including 3 -D Maximum intensity projection reconstructionsconstructed under concurrent physician supervision on a independentworkstation to optimize vascular assessment. Automated exposure controlwas utilized. Findings: 3D reformatted images confirm the source data findings. No thrombi identified within first or second order branches of thepulmonary arteries. Assessment for more distal pulmonary emboli isprecluded by body habitus. Mediastinum and christie show no acute findings. lungs demonstrate no acute findings Impression: No thrombi identified within first or second order branches of thepulmonary arteries. Assessment for more distal pulmonary emboli isprecluded by body habitus. All CT scans at this facility use dose modulation, iterativereconstruction, and/or weight based dosing when appropriate to reduceradiation dose to as low as reasonably achievable. Finalized by Jose Angel Greene MD on 09/08/2024 6:52 AM Jourdan Shoemaker MD IMG CT ORDERABLES Final Resu lt * Troponin I, High Sensitivity 1 Hour (09/08/2024 5:25 AM EDT) TROPONIN I, HIGH SENSITIVITY <2 <16 ng/L 09/08/2024 6:23 AM EDT [facility] Blood Venous blood / Unknown Venipuncture / Unknown 09/08/2024 5:25 AM EDT 09/08/2024 5:27 AM EDT Jourdan Shoemaker MD LAB BLOOD ORDERABLES Final R esult [facility] [address] [place] [address], [place] * CT abdomen and pelvis with contrast (09/08/2024 5:02 AM EDT) Anatomical Region Laterality Modality Body, Abdomen, Body Covera N/A Compu fred Tomography 09/08/2024 5:03 AM EDT Narrative 09/08/2024 5:[address] ABDOMEN AND PELVIS W CONT CLINICAL INFORMATION: Left upper quadrant abdominal pain, history of Crohn's. COMPARISON: CTA abdomen and pelvis 06/16/2024. TECHNIQUE: CT of the abdomen/pelvis with intravenous contrast. All CT scans at this facility use dose modulation, iterative reconstruction, and/or weight based dosing when appropriate to reduce radiation dose to as low as reasonably achievable. FINDINGS: LOWER CHEST: Chest reported separately. LIVER AND BILIARY: Non-cirrhotic liver morphology. No biliary ductal dilatation. Cholelithiasis. PANCREAS: Normal morphology. No ductal dilation or peripancreatic fluid. SPLEEN: Non-enlarged. ADRENALS: Normal morphology. : Symmetric enhancement. No renal calculi or collecting system dilatation, by technique. Ureters are normal in course and caliber. Bladder appears unremarkable. GI TRACT AND PERITONEUM: Postoperative changes compatible with ileocecectomy. Normal caliber large and small bowel. No free intraperitoneal air. Small amount of free fluid within the pelvis. VASCULATURE: The IVC is right-sided. The abdominal aorta is nonanuerysmal. The portal, splenic, and superior mesenteric veins appear patent. LYMPH NODES: No enlarged mesenteric or retroperitoneal lymph nodes by CT size criteria. PELVIS: uterus. Several left ovarian cysts measuring up to 3.0 cm in size. MUSCULOSKELETAL: Bilateral sacroiliitis. Grade 1 retrolisthesis of L5 on S1. IMPRESSION: * No acute abnormalities in the abdomen/pelvis. * Status post ileocecectomy. No evidence of bowel obstruction or abnormal bowel wall thickening. * Cholelithiasis. * Heterogenous, uterus. * Several left ovarian cysts measuring up to 3.0 cm. Approved by Resident Macario Hernandez MD on 09/08/2024 5:03 AM ILucas MD have personally reviewed the image(s) and agree with and/or edited the report Finalized by Lucas Rob MD on 09/08/2024 5:30 AM Procedure Note Lucas Rob MD - 09/08/2024 CT ABDOMEN AND PELVIS W CONT CLINICAL INFORMATION: Left upper quadrant abdominal pain, history ofCrohn's. COMPARISON: CTA abdomen and pelvis 06/16/2024. TECHNIQUE: CT of the abdomen/pelvis with intravenous contrast. All CT scans at this facility use dose modulation, iterativereconstruction, and/or weight based dosing when appropriate to reduceradiation dose to as low as reasonably achievable. FINDINGS: LOWER CHEST: Chest reported separately. LIVER AND BILIARY: Non-cirrhotic liver morphology. No biliary ductaldilatation. Cholelithiasis. PANCREAS: Normal morphology. No ductal dilation or peripancreatic fluid. SPLEEN: Non-enlarged. ADRENALS: Normal morphology. : Symmetric enhancement. No renal calculi or collecting systemdilatation, by technique. Ureters are normal in course and caliber.Bladder appears unremarkable. GI TRACT AND PERITONEUM: Postoperative changes compatible withileocecectomy. Normal caliber large and small bowel. No freeintraperitoneal air. Small amount of free fluid within the pelvis. VASCULATURE: The IVC is right-sided. The abdominal aorta is nonanuerysmal.The portal, splenic, and superior mesenteric veins appear patent. LYMPH NODES: No enlarged mesenteric or retroperitoneal lymph nodes by CTsize criteria. PELVIS: uterus. Several left ovarian cysts measuring up to 3.0cm in size. MUSCULOSKELETAL: Bilateral sacroiliitis. Grade 1 retrolisthesis of L5 onS1. IMPRESSION: * No acute abnormalities in the abdomen/pelvis. * Status post ileocecectomy. No evidence of bowel obstruction or abnormalbowel wall thickening. * Cholelithiasis. * Heterogenous, uterus. * Several left ovarian cysts measuring up to 3.0 cm. Approved by Resident Macario Hernandez MD on 09/08/2024 5:03 AM I, Lucas Rob MD have personally reviewed the image(s) and agree withand/or edited the report Finalized by Lucas Rob MD on 09/08/2024 5:30 AM Jourdan Shoemaker MD IMG CT ORDERABLES Final Resu lt * POCT , urine (09/08/2024 4:41 AM EDT) Pathologist [facility] POC Urine Negative Negative, Indeterminate 09/08/2024 4:36 AM EDT [facility] Urine 09/08/2024 4:41 AM EDT 09/08/2024 4:36 AM EDT us Jourdan Shomeaker MD POINT OF CARE TEST ORDERABLE S Final Result [facility] [address] [facility] [place] [address], * (ABNORMAL) POCT Nursing Urine Macroscopic UA (09/08/2024 4:39 AM EDT) POC Urine Specific [place] >=1.030(A) 1.010, 1.015, 1.020, 1.025 09/08/2024 4:31 AM EDT [facility] POC Urine Leukocyte Esterase Negative Negative 09/08/2024 4:31 AM EDT [facility] POC Urine Nitrite Negative Negative 09/08/2024 4:31 AM EDT [facility] POC Urine pH 6.0 5.0, 6.0, 6.5, 7.0, 7.5, 8.0, 8.5, 5.5 09/08/2024 4:31 AM EDT [facility] POC Urine Protein Negative Negative 09/08/2024 4:31 AM EDT [facility] POC Urine Glucose Negative Negative 09/08/2024 4:31 AM EDT [facility] POC Urine Ketones Trace(A) Negative 09/08/2024 4:31 AM EDT [facility] POC Urine Urobilinogen 0.2 E.U./dL 09/08/2024 4:31 AM EDT [facility] POC Urine Bilirubin Negative Negative 09/08/2024 4:31 AM EDT [facility] POC Urine Blood/HGB Moderate(A) Negative 09/08/2024 4:31 AM EDT [facility] Urine 09/08/2024 4:39 AM EDT 09/08/2024 4:31 AM EDT Jourdan Shoemaker MD POINT OF CARE TEST ORDERABLE S Final Result [facility] [address] [facility] [place] [address], [place] * ECG 12 lead (09/08/2024 4:25 AM EDT) 09/08/2024 4:25 AM EDT Narrative [facility] - 09/08/2024 4:33 AM EDT Jourdan Shoemaker MD ECG ORDERABLES Final Result [facility] * Extra Urine [place] (09/08/2024 4:21 AM EDT) Extra Tube Auto Resulted 09/08/2024 6:04 AM EDT [facility] Urine Urine specimen collection, clean catch / Unknown 09/08/2024 4:21 AM EDT 09/08/2024 5:27 AM EDT us Jourdan Shoemaker MD URINE ORDERABLES Final Resul t Performing Organization Address City/[facility] Co de Phone Number [address] [place] [address], [place] * Extra Urine Culture (09/08/2024 4:21 AM EDT) Extra Tube Auto Resulted 09/08/2024 6:04 AM EDT [facility] Urine Urine specimen collection, clean catch / Unknown 09/08/2024 4:21 AM EDT 09/08/2024 5:27 AM EDT us Jourdan Shoemaker MD URINE ORDERABLES Final Resul t Performing Organization Address City/[facility] Co de Phone Number [address] [place] [address], [place] * Extra Urine (09/08/2024 4:21 AM EDT) Extra Tube Auto Resulted 09/08/2024 6:04 AM EDT [facility] Urine Urine specimen collection, clean catch / Unknown 09/08/2024 4:21 AM EDT 09/08/2024 5:27 AM EDT us Jourdan Shoemaker MD URINE ORDERABLES Final Resul t Performing Organization Address City/[facility] Co de Phone Number [address] [place] [address], [place] * Troponin I, High Sensitivity 0 Hour (09/08/2024 4:04 AM EDT) TROPONIN I, HIGH SENSITIVITY <2 <16 ng/L 09/08/2024 4:42 AM EDT [facility] Blood Venous blood / Unknown Venipuncture / Unknown 09/08/2024 4:04 AM EDT 09/08/2024 4:11 AM EDT Jourdan Shoemaker MD LAB BLOOD ORDERABLES Final R esult [address] [place] [address], [place] * Light Blue Top (09/08/2024 4:04 AM EDT) Pathologist [facility] Extra Tube Auto Resulted 09/08/2024 6:04 AM EDT [facility] Blood Venous blood / Unknown 09/08/2024 4:04 AM EDT 09/08/2024 5:30 AM EDT Jourdan Shoemaker MD LAB BLOOD ORDERABLES Final R esult Performing Organization Address City/[facility]/ZIP Co de Phone Number [address] [place] [address], [place] * (ABNORMAL) CBC auto differential (09/08/2024 4:04 AM EDT) Only the most recent of2 resultswithin the time period is included. Pathologist [facility] WBC 4.7 4 - 11 x10E9/L 09/08/2024 5:24 AM EDT [facility] RBC Count 3.66(L) 3.8 - 5.2 X10E12/L 09/08/2024 5:24 AM EDT [facility] Hemoglobin 9.5(L) 11.7 - 15.5 g/dL 09/08/2024 5:24 AM EDT [facility] Hematocrit 29.6(L) 35 - 47 % 09/08/2024 5:24 AM EDT [facility] MCV 81 80 - 100 fL 09/08/2024 5:24 AM EDT [facility] MCH 26.0(L) 27 - 34 pg 09/08/2024 5:24 AM EDT [facility] MCHC 32.2 32 - 36 g/dL 09/08/2024 5:24 AM EDT [facility] RDW 26.8(H) 11.5 - 15 % 09/08/2024 5:24 AM EDT [facility] Platelet Count 246 150 - 450 X10E9/L 09/08/2024 5:24 AM EDT [facility] MPV 10.0 7 - 12 fL 09/08/2024 5:24 AM EDT [facility] Neutrophils % 47.9 % 09/08/2024 5:24 AM EDT [facility] Comment:This is an appended report. These results have been appended to a previously preliminary verified report. Lymphocytes % 43.5 % 09/08/2024 5:24 AM EDT [facility] Comment:This is an appended report. These results have been appended to a previously preliminary verified report. Monocytes % 6.5 % 09/08/2024 5:24 AM EDT [facility] Comment:This is an appended report. These results have been appended to a previously preliminary verified report. Eosinophils % 1.3 % 09/08/2024 5:24 AM EDT [facility] Comment:This is an appended report. These results have been appended to a previously preliminary verified report. Basophils % 0.8 % 09/08/2024 5:24 AM EDT [facility] Comment:This is an appended report. These results have been appended to a previously preliminary verified report. Neutrophils Absolute (A) 2.2 1.5 - 6.6 10*3/uL 09/08/2024 5:24 AM EDT [facility] Comment:This is an appended report. These results have been appended to a previously preliminary verified report. Lymphocytes Absolute 2.0 1.0 - 3.5 10*3/uL 09/08/2024 5:24 AM EDT [facility] Comment:This is an appended report. These results have been appended to a previously preliminary verified report. Monocytes Absolute 0.3 0.0 - 0.9 10*3/uL 09/08/2024 5:24 AM EDT [facility] Comment:This is an appended report. These results have been appended to a previously preliminary verified report. Eosinophils Absolute 0.1 0.0 - 0.4 10*3/uL 09/08/2024 5:24 AM EDT [facility] Comment:This is an appended report. These results have been appended to a previously preliminary verified report. Basophils Absolute 0.0 0.0 - 0.2 10*3/uL 09/08/2024 5:24 AM EDT [facility] Comment:This is an appended report. These results have been appended to a previously preliminary verified report. Anisocytosis 2+ 09/08/2024 5:24 AM EDT [facility] Comment:This is an appended report. These results have been appended to a previously preliminary verified report. RBC Morphology Reviewed 09/08/2024 5:24 AM EDT [facility] Comment:This is an appended report. These results have been appended to a previously preliminary verified report. Differential Type AUTOMATED DIFFERENTIAL 09/08/2024 5:24 AM EDT [facility] Comment:This is an appended report. These results have been appended to a previously preliminary verified report. Blood Venous blood / Unknown Venipuncture / Unknown 09/08/2024 4:04 AM EDT 09/08/2024 4:11 AM EDT us Jourdan Shoemaker MD LAB BLOOD ORDERABLES Final R esult [facility] [address] [place] [address], [place] * Lipase (09/08/2024 4:04 AM EDT) LIPASE 37 17 - 40 U/L 09/08/2024 4:32 AM EDT [facility] Blood Venous blood / Unknown Venipuncture / Unknown 09/08/2024 4:04 AM EDT 09/08/2024 4:11 AM EDT Jourdan Shoemaker MD LAB BLOOD ORDERABLES Final R esult Performing Organization Address City/[facility]/ZIP Co de Phone Number [facility] [address] [place] [address], [place] * (ABNORMAL) Liver panel (09/08/2024 4:04 AM EDT) TOTAL PROTEIN 7.5 6.0 - 8.0 g/dL 09/08/2024 4:46 AM EDT [facility] ALBUMIN 4.2 3.2 - 5.3 g/dL 09/08/2024 4:46 AM EDT [facility] BILIRUBIN,TOTAL 0.3 0.3 - 1.2 mg/dL 09/08/2024 4:46 AM EDT [facility] ALKALINE PHOSPHATASE 34(L) 39 - 130 U/L 09/08/2024 4:46 AM EDT [facility] AST 18 <=41 U/L 09/08/2024 4:46 AM EDT [facility] ALT 15 <=31 U/L 09/08/2024 4:46 AM EDT [facility] BILIRUBIN,DIRECT <0.1 <=0.4 mg/dL 09/08/2024 4:46 AM EDT [facility] Blood Venous blood / Unknown Venipuncture / Unknown 09/08/2024 4:04 AM EDT 09/08/2024 4:11 AM EDT us Jourdan Shoemaker MD LAB BLOOD ORDERABLES Final R esult [facility] [address] [place] [address], * (ABNORMAL) Basic Metabolic Panel (09/08/2024 4:04 AM EDT) Only the most recent of2 resultswithin the time period is included. SODIUM 139 134 - 146 mmol/L 09/08/2024 4:46 AM EDT [facility] POTASSIUM 3.5 3.5 - 5.0 mmol/L 09/08/2024 4:46 AM EDT [facility] CHLORIDE 109 98 - 109 mmol/L 09/08/2024 4:46 AM EDT [facility] CARBON DIOXIDE 25 22 - 32 mmol/L 09/08/2024 4:46 AM EDT [facility] ANION GAP 5 5 - 15 mmol/L 09/08/2024 4:46 AM EDT [facility] BLOOD UREA NITROGEN 9 5 - 23 mg/dL 09/08/2024 4:46 AM EDT [facility] CREATININE 0.72 0.40 - 1.00 mg/dL 09/08/2024 4:46 AM EDT [facility] Comment:METHOD TRACEABLE TO IDMS STANDARD GLUCOSE 108(H) 65 - 99 mg/dL 09/08/2024 4:46 AM EDT [facility] CALCIUM 9.4 8.5 - 10.5 mg/dL 09/08/2024 4:46 AM EDT [facility] EGFR Non-Race Dependent >90 >=60 ml/min/1.7 3sq.m 09/08/2024 4:46 AM EDT [facility] Comment: eGFR not reported due to non-numeric value for Creatinine. Reported eGFR is based on the CKD-EPI 2020 equation that does not use a race coefficient. Blood Venous blood / Unknown Venipuncture / Unknown 09/08/2024 4:04 AM EDT 09/08/2024 4:11 AM EDT us Jourdan Shoemaker MD LAB BLOOD ORDERABLES Final R esult Performing Organization Address [facility] Co de Phone Number [address] [place] [address], * D-Dimer (08/02/2024 5:37 PM EDT) D DIMER <150 1 - 255 ug/mL 08/02/2024 6:20 PM EDT [facility] Comment:Results <255 ng/mL D DU: The presensence of a VTE can safely be excluded with a negative D-Dimer result and Wells score. A negative result doesn't exclude the possibility of DIC. The test should be repeated along with other diagnostic tests if the patient's symptoms persist or worsen. Blood Venous blood / Unknown 08/02/2024 5:37 PM EDT 08/02/2024 6:00 PM EDT us Selena Zamorano DISTRICT CLAIMS MANAGER-BANKING CENTER MANAGER LAB BLOOD ORDERABLES Final Result Performing Organization Address [facility] Co de Phone Number [address] [place] [address], from Last 3 Months Insurance [employer] Advance Directives Documents on File Type Date Recorded Patient Change Director Expl anation Durable Power of Gutter Hanger 06/24/2024 7:04 AM Durable Power of Gutter Hanger 06/17/2024 5:06 PM Power of Gutter [employer]anger 06/17/2024 Advance Directive 06/17/2024 5:03 PM Nick Harper Pow er of [employer]anger 06/17/2024 Durable Power of Gutter Hanger 06/17/2024 4:27 PM [facility] Pow er of G[employer] Hanger * Full Code (Latest Code Status on File) Date Activated Date Inactivated Comments 06/16/2024 11:28 PM 06/18/2024 7:53 PM * Full Code Date Activated Date Inactivated Comments 05/30/2024 7:30 PM 06/10/2024 7:43 PM * Full Code Date Activated Date Inactivated Comments 07/03/2019 3:39 PM 07/03/2019 7:07 PM * Full Code Date Activated Date Inactivated Comments 04/02/2018 11:45 AM 04/10/2018 4:06 PM * Full Code Date Activated Date Inactivated Comments 10/17/2017 8:36 PM 10/22/2017 7:23 PM Healthcare Agents on File Name Relationship Healthcare Agent [facility] Communication Nick Harper Significant Other Health Care Agent Care Teams Tin Whiz Machine Operator Relationship Specialty Start Date End Date Hilary Aviles, DISTRICT CLAIMS MANAGER-BANKING CENTER MANAGER [address], [place] [address] PCP - General Family Medicine 01/03/24
--- OUTSIDE RECORDS SUMMARY | 2024-10-18 21:05 | XMS_ITS | Encounter Summary ---
Author Organization [facility] CenterServiceTrade Bloggerce Sys tem Address [facility]-[id number] [address] [place] [address] Care Team Providers Care Brim Stretcher Name Role Phone Hilary Aviles HOTSHOT SUPERINTENDENT-SHOE FOLDER Primary Care Provi lazarus Encounter Details Date Type Department Care Team (Late st Contact Info) Description 10/10/2021 Telephone [facility] [address] [place] [phone] Sharda Montiel MD [address] [place] [address], [address] [place] [address] Social History Tobacco Use Types [...] have Coronavirus / COVID-19? No / Unsure 10/08/2021 9:40 AM EDT documented as of this encounter Miscellaneous Notes * Telephone Encounter - Sharda Montiel MD - 10/10/2021 2:45 PM EDT All bx's benign and show remission of her Crohn's. -- cont current treatment -- can hold off on previously ordered MRE Please disregard notes below. Summary Colonoscopy 10/08/2021, f/u of chronic Crohn's, assess response to treatment: TI nl s/p bx's. Unremarkable appearing colonic mucosa throughout s/p random bx's. Path: All bx's benign and unremarkable.Incidental hyperplastic polyp noted in the sigmoid colon bx's. Final Pathologic Diagnosis 1. Terminal ileum, biopsies: ? Unremarkable ileal mucosa. ? No ileitis, granuloma or dysplasia identified. 2. Right colon biopsies: ? Unremarkable colonic mucosa. ? No colitis, granuloma or dysplasia identified. 3. Left colon biopsies: ? Unremarkable colonic mucosa. ? No colitis, granuloma or dysplasia identified. 4. Sigmoid colon polyp, biopsy: ? Hyperplastic polyp. 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 Recent labs from 07/2021 show her Crohn's appears to be under control on her current regimen but with room for her IFX dose to be increased, which was done (5mg/kg q6 wks). Overall, doing well. Having BM's 1 per day or every other day. Denies pain and bleeding. SIBDQ = 6, HBI = 2, c/w clinical remission. Labs 07/17/21: 6MMP 5796 (< 5700), 6-TGN 215 (nl is 235-450); infliximab level 6.6 mcg/mL; no ab testing done given level > 5 mcg/mL (literature suggests levels 6-10mcg/mL are associated w mucosal healing); ESR wnl; c diff neg; stool calprotectin nl Colonoscopy 10/21/17: Findings: normal perianal exam; severe stricture noted at the ICV which precluded intubation of the TI; multiple bx's taken. Tortuous colon throughout w/ sig looping in the sigmoid. Mult random bx's taken throughout the colon. Path: focal active colitis at the ICV and in the R colon; normal L colon bx's. - Can hold off on previously ordered MRE if she continues to do well. * Telephone Encounter - Lupe Barba RN - 10/10/2021 2:45 PM EDT Message sent to patient through [employer] regarding results and recommendations. documented in this encounter Plan of Treatment Upcoming Encounters Date Type Department Care Team (Late st Contact Info) Description 10/28/2024 1:30 PM EDT Office Visit [facility] [address] [place] [phone] Sergio Thompson, [address], [facility] [address] [place] [address] 11/03/2024 1:00 PM EDT Infusion [facility] Infusion [address] [place] [phone] 12/02/2024 10:15 AM EDT Office Visit [facility] [address] [place] [phone] [place] [address] [place] [address] [address] [place] [address] 12/15/2024 1:00 PM EST Infusion [facility] [address] [phone] 12/31/2024 1:30 PM EST Office Visit [facility] [address] [facility] [address] [place] [phone] Josephine Turner, PA [address] [facility]. [address] [place] [address] 01/11/2025 1:45 PM EST Office Visit [facility] [address] [facility] [address] [place] [address] Cee Sagastume, HOTSHOT SUPERINTENDENT-SHOE FOLDER [address] [facility], [address] [place] [address] documented as of this encounter Visit Diagnoses Not on filedocumented in this encounter Additional Health Concerns Infection Onset Date Last Indicated Resolved Time COVID-19 Rule-Out 03/24/2022 03/24/2022 03/24/2022 10:15 PM EST COVID-19 Positive 03/24/2022 03/24/2022 04/14/2022 11:12 PM EST Assessment Noted Time PHQ-9 Depression Total Score: 11 021 1:00 PM EDT documented as of this encounter Care Teams Brim Stretcher Relationship Specialty Start Date End Date Hilary Aviles, HOTSHOT SUPERINTENDENT-SHOE FOLDER [address], [place] [address] PCP - General Family Medicine 01/03/24 documented as of this encounter
--- OUTSIDE RECORDS SUMMARY | 2024-10-18 21:05 | XMS_ITS | Encounter Summary ---
Author Organization [employer] Sys tem Address [id number] [address] [place] [address] Care Team Providers Care Client Care Specialist Name Role Phone Hilary Aviles WATER SOFTENER SERVICER AND INSTALLER-APPLICATION ARCHITECT MANAGER Primary Care Provi lazarus Encounter Details Date Type Department Care Team (Late st Contact Info) Description 11/18/2019 [facility] [address] [place] [address] [place] [address] Roxanne Staley CMA Social History [...] have Coronavirus / COVID-19? No / Unsure 11/03/2019 1:38 PM EDT documented as of this encounter Miscellaneous Notes * Telephone Encounter - Roxanne Staley CMA - 11/18/2019 12:34 PM EDT Patient called stating she has missed some work recently due to her depression again. She stopped all anti depressant meds awhile back and though we referred her to [facility], they keep cancelling onher so she hasnt seen anyone as of yet. She has had Trintellix samples from her previous appt and per Zaira, I let her know to start thr Trintellix 5mg once yulissa;y and we will see her Friday at her appt. She agreed. Roxanne Staley CMA 11/18/19 1236 documented in this encounter Plan of Treatment Upcoming Encounters Date Type Department Care Team (Late st Contact Info) Description 10/28/2024 1:30 PM EDT Office Visit [facility] [address] [place] [phone] Sergio Thompson, [address], [address], [facility] [place] [address] 11/03/2024 1:00 PM EDT Infusion [facility] [address] [place] [phone] 12/02/2024 10:15 AM EDT Office Visit [facility] Oncology [address] [place] [phone] Quan Diaz MD [address] [place] [address] [address] [place] [address] 12/15/2024 1:00 PM EST Infusion [facility] [address] [place] [phone] 12/31/2024 1:30 PM EST Office Visit [facility], A Department of [address] [phone] [place] [address] [place] [address] [address] [place] [address] 01/11/2025 1:45 PM EST Office Visit [facility] [address] [facility] [address] [place] [phone] Cee Sagastume, WATER SOFTENER SERVICER AND INSTALLER-APPLICATION ARCHITECT MANAGER [address] [facility], [address] [place] [address] documented as of this encounter Visit Diagnoses [...] documented as of this encounter Care Teams Client Care Specialist Relationship Specialty Start Date End Date Hilary Aviles, WATER SOFTENER SERVICER AND INSTALLER-APPLICATION ARCHITECT MANAGER [address], [place] [address] PCP - General Family Medicine 01/03/24 documented as of this encounter
--- OUTSIDE RECORDS SUMMARY | 2024-10-18 21:05 | XMS_ITS | Encounter Summary ---
Author Organization [facility] Address [address] [facility] [place] [address] Care Team Providers Care Printing Gray Cloth Tender Name Role Phone Hilary Aviles MD Unavailable [phone] Encounter Details Date Type Department Care Team (Late Contact Info) Description 02/17/2024 Abstract [facility] [address] [place] [address] [place] [address] Parish Valdez DO [facility] Nereida [place], [place] [address] Social History Tobacco Use Types Packs/Day Years [...] 1:00 PM EDT Procedure Visit JESSICA TAYL[place] [address] Parish Valdez DO [address] [place], [facility]11 documented as of this encounter Visit Diagnoses Not on filedocumented in this encounter Care Teams Printing Gray Cloth Tender Relationship Specialty Start Date End Date Hilary Aviles MD [address] [place] [address] Referring Physician Nurse Practitioner 10/08/22 documented as of this encounter
--- OUTSIDE RECORDS SUMMARY | 2024-10-18 21:05 | XMS_ITS | Encounter Summary ---
Author Organization [facility] Address [address] [place] [address] Care Team Providers Care Planner Chief Name Role Phone Hilary Aviles MD Unavailable [phone] Encounter Details Date Type Department Care Team (Late st Contact Info) Description 10/08/2022 Abstract [facility] [address] [place] [phone] Jonathon Parikh, DPDonovan [address] [place] [address] Social History Tobacco Use Types Packs/Day Years Used Date Smoking Tobacco: Never Alcohol Use Standard Drinks/Week Comments Never 0 (1 standard drink = 0.6 oz pur e alcohol) Comments Unknown Sex and Gender Information Value Date Recorded [...] 1:00 PM EDT Procedure Visit [facility] [address] [facility] [place] [address] Parish Valdez DO [address] [place], [place] [phone] documented as of this encounter Visit Diagnoses Not on filedocumented in this encounter Care Teams Planner Chief Relationship Specialty Start Date End Date Hilary Aviles MD [address] [place], [place] [phone] Referring Physician Nurse Practitioner 10/08/22 documented as of this encounter
--- OUTSIDE RECORDS SUMMARY | 2024-10-18 21:05 | XMS_ITS | Encounter Summary ---
Author Organization [facility] HospitalProperty[facility] Sys tem Address [facility]-[id number] [address] [place] [address] Care Team Providers Care Lot Worker Name Role Phone Hilary Aviles PATENT DRAFTER-CLERK TELEGRAPH SERVICE Primary Care Provi [facility] Encounter Details Date Type Department Care Team (Late st Contact Info) Description 01/20/2024 [facility]phone [facility] [address] [facility]. [address] [place] [address] Luli Carpenter LPN Social History Tobacco Use Types Packs/Day [...] got money to buy more. Never True 01/03/2024 Within the past 12 months th e food we bought just didn't last and we didn't have money to get more. Never True 01/03/2024 Purpose - Life Answer Date Recorded Purpose and direction in life Unknown Comments Yes Sex and Gender Information Value Date Recorded Sex Assigned at Not on file Legal Sex Female 9:19 PM EDT Gender Identity Not on file Sexual Orientation Not on file documented as of this encounter Miscellaneous Notes * Telephone Encounter - Luli Carpenter LPN - 01/20/2024 11:06 AM EST This patient is on Inflectra. We no longer are able to stock Inflectra. Submitted PA request for Renflexis 5mg/kg (400mg) every 42 days or 6 weeks. Included clinical documentation and most recent TB testing. K50.812 * Telephone Encounter - Luli Carpenter LPN - 01/20/2024 11:06 AM EST Approved Avsola 5mg/kg (400mg) every 6 weeks Auth # [id number] Valid: 01.20.24 - 01.18.25 9 Visits [id number] Appt notes, referral updated, therapy plan entered and spreadsheet updated. FYI INFUSION NURSES: This patient was Inflectra and is now Avsola. This is an FYI * Telephone Encounter - Dina Zarco RN - 01/20/2024 11:06 AM EST noted documented in this encounter Plan of Treatment Upcoming Encounters Date Type Department Care Team (Late st Contact Info) Description 10/28/2024 1:30 PM EDT Office Visit [facility] [address] [place] [address] [place] [place] [address] Sergio Thompson, [address] [facility], [facility] [address], [place] [address] 11/03/2024 1:00 PM EDT Infusion [facility] [address] [facility] [address] [place] [address] 12/02/2024 10:15 AM EDT Office Visit [facility] On[facility] [address] [facility] [address] Quan Diaz MD [address] [facility] [address] [place] [address] 12/15/2024 1:00 PM EST Infusion [facility] [address] [facility] [address] [place] [phone] 12/31/2024 1:30 PM EST Office Visit [facility], A Department of [facility] [address] [place] [address] [address] [place] [phone] Josephine Turner, PA [address] [facility]. [address] [place] [address] 01/11/2025 1:45 PM EST Office Visit [facility] [address] [facility] [address] [place] [address] Cee Sagastume, PATENT DRAFTER-CLERK TELEGRAPH SERVICE [address] [facility], [address] [place] [address] documented as of this encounter Visit Diagnoses Not on filedocumented in this encounter Additional Health Concerns Assessment Noted Time PHQ-9 Depression Total Score: 15 024 9:44 AM EDT documented as of this encounter Care Teams Lot Worker Relationship Specialty Start Date End Date Hilary Aviles, PATENT DRAFTER-CLERK TELEGRAPH SERVICE [address], [place] [address] PCP - General Family Medicine 01/03/24 documented as of this encounter
--- OUTSIDE RECORDS SUMMARY | 2024-10-18 21:05 | XMS_ITS | Encounter Summary ---
Author Organization [facility] [employer] Address [id number] [address] [place] [address] Care Team Providers Care Road Test Examiner Name Role Phone TraciHilary jose POST ADOPTION COORDINATOR-JET MAN Primary Care Provi lazarus Encounter Details Date Type Department Care Team (Late st Contact Info) Description 08/23/2021 Telephone [facility] Physicians [facility] [address] [facility]. [address] [place] [phone] Eliz Zarco RN Social History Tobacco Use Types Packs/Day [...] have Coronavirus / COVID-19? No / Unsure 08/02/2021 10:04 AM EDT documented as of this encounter Miscellaneous Notes * Telephone Encounter - Eliz Zarco RN - 08/23/2021 2:48 PM EDT Patient called in regard to scheduling MR enterography of abdomen and pelvis, ordered by Dr Montiel on August 02. Orders given to Yue for precert Patient notified by voicemail * Telephone Encounter - Eliz Zarco RN - 08/23/2021 2:48 PM EDT Authorization received. Under appt tab to referral. Patient notified, given Central Scheduling phone number documented in this encounter Plan of Treatment Upcoming Encounters Date Type Department Care Team (Late st Contact Info) Description 10/28/2024 1:30 PM EDT Office Visit [facility] [address] [place] [address] [place] [phone] Sergio Thompson, [address] [place] [address], [address], [address] [place], [place] [phone] 11/03/2024 1:00 PM EDT Infusion [facility] In[facility] [address] [place] [phone] 12/02/2024 10:15 AM EDT Office Visit [facility] On[facility] [address] [place] [phone] [place] [address] [place] [address] [address] [place] [address] 12/15/2024 1:00 PM EST Infusion [facility] [address] [place] [phone] 12/31/2024 1:30 PM EST Office Visit [facility], A Department of [address] [address] Josephine Turner, [place] [address] [facility]. [address] [place] [address] 01/11/2025 1:45 PM EST Office Visit [facility] 2751 [facility] 302 [place] [phone] Cee Sagastume, POST ADOPTION COORDINATOR-JET MAN [address] [facility], [address] [place] [address] documented as of this encounter Visit Diagnoses Not on filedocumented in this encounter Additional Health Concerns Infection Onset Date Last Indicated Resolved Time COVID-19 Rule-Out 03/24/2022 03/24/2022 03/24/2022 10:15 PM EST COVID-19 Positive 03/24/2022 03/24/2022 04/14/2022 11:12 PM EST Assessment Noted Time PHQ-9 Depression Total Score: 11 021 1:00 PM EDT documented as of this encounter Care Teams Road Test Examiner Relationship Specialty Start Date End Date Hilary Aviles, POST ADOPTION COORDINATOR-JET MAN [address], [place] [address] PCP - General Family Medicine 01/03/24 documented as of this encounter
--- OUTSIDE RECORDS SUMMARY | 2024-10-18 21:05 | XMS_ITS | Encounter Summary ---
Author Organization [facility] Address [address] [place] [address] Care Team Providers Care Telegraph Lineman Name Role Phone Hilary Aviles MD Unavailable [phone] Encounter Details Date Type Department Care Team (Late st Contact Info) Description 01/23/2024 Clinisync Result Encounter [facility] External Department Unsolicited Chapincito Valdez DO [address], [place] [address] Social History Tobacco Use Types Packs/Day Years [...] Visit [facility] [address] [place] [phone] Chapincito Valdez DO [address] [place] [address] documented as of this encounter Procedures Procedure Name Priority Date/Time Associated Diagnosis Comments US OB TRANSVAGINAL 01/23/2024 10 :28 AM EST documented in this encounter Results * US OB TRANSVAGINAL (01/23/2024 10:28 AM EST) Anatomical Region Laterality Modality Other 01/23/2024 10:2 8 AM EST Narrative 01/23/2024 10:31 AM EST [address] [address] Ultrasound Report Signed Patient: JUAN LUIS STOREY MR#: [id number] : 1990 Acct:[id number] Age/Sex: 33 / F ADM Date: 01/23/24 Loc: [facility] Attending Dr: Chapincito Valdez D.O. Ordering Physician: Chapincito Valdez D.O. Date of Service: 01/23/24 Procedure(s): US OB transvaginal Accession Number(s): [id number] cc: Chapincito Valdez D.O.; Hilary Aviles NP [address] [address] Patient Name: JUAN LUIS STOREY MRN: [id number] date: 1990 Sex: F Assigned Patient [facility]: [facility] Current Patient Location: [facility] Accession/Order Number: [id number] Exam Date: 01/23/2024 09:45 Report Date: 01/23/2024 10:28 At the request of: CHAPINCITO VALDEZ Procedure: US OB transvaginal EXAMINATION: US OB transvaginal HISTORY: MISSED MENSES COMPARISON: No relevant comparison available. FINDINGS: Spears intrauterine gestation Gestational sac: 5.3 cm, 11 weeks 2 days CRL: 4.16 cm, 7 weeks 0 days Yolk sac: 7.4 mm Heart rate: 162 bpm The uterus is normal, anteverted, anteflexed The ovaries are normal in appearance. Clinical age: 11 weeks 2 days Clinical ALEJANDRA: 08/11/2024 Ultrasound age: 11 weeks 0 days Ultrasound ALEJANDRA: 08/13/2024 US/US OB transvaginal IMPRESSION: Viable spears intrauterine gestation measuring 11 weeks 0 days Electronically authenticated by: SESAR REYNOLDS Date: 01/23/2024 10:28 Dictated By: Sesar Reynolds M.D. Signed By: 01/23/24 1031 DD/ 1028 TD/TT: Truck Dispatcher: Procedure Note Radiology, Radiologist, - 01/23/2024 [place] [address] Ultrasound Report Signed Patient: JUAN LUIS STOREY LMR#: [id number] : 1990Acct:[id number] Age/Sex: 33 / FADM Date: 01/23/24 Loc: [facility] Attending Dr: Chapincito Valdez D.O. Ordering Physician: Chapincito Valdez D.O. Date of Service: 01/23/24 Procedure(s): US OB transvaginal Accession Number(s): [id number] cc: Chapincito Valdez D.O.; Hilary Aviles NP The [place] [id number] Patient Name: JUAN LUIS STOREY MRN: [id number] date: 1990 Sex: F Assigned Patient Location: [facility] Current Patient Location: [facility] Accession/Order Number: [id number] Exam Date: 01/23/2024 09:45 Report Date: 01/23/2024 10:28 At the request of: CHAPINCITO VALDEZ Procedure: US OB transvaginal EXAMINATION: US OB transvaginal HISTORY: MISSED MENSES COMPARISON: No relevant comparison available. FINDINGS: Spears intrauterine gestation Gestational sac: 5.3 cm, 11 weeks 2 days CRL: 4.16 cm, 7 weeks 0 days Yolk sac: 7.4 mm Heart rate: 162 bpm The uterus is normal, anteverted, anteflexed The ovaries are normal in appearance. Clinical age: 11 weeks 2 days Clinical ALEJANDRA: 08/11/2024 Ultrasound age: 11 weeks 0 days Ultrasound ALEJANDRA: 08/13/2024 US/US OB transvaginal IMPRESSION: Viable spears intrauterine gestation measuring 11 weeks 0 days Electronically authenticated by: SESAR REYNOLDS Date: 01/23/2024 10:28 Dictated By: Sesar Reynolds M.D. Signed By:01/23/24 1031 DD/ 1028 TD/TT: Truck Dispatcher: us Chapincito Valdez DO [facility] Final Result documented in this encounter Visit Diagnoses Not on filedocumented in this encounter Care Teams Telegraph Lineman Relationship Specialty Start Date End Date Hilary Aviles MD [address] [place] [address] [place] [address] Referring Physician Nurse Practitioner 10/08/22 documented as of this encounter
--- OUTSIDE RECORDS SUMMARY | 2024-10-18 21:05 | XMS_ITS | Encounter Summary ---
Author Organization [facility] [employer] Address [id number] [address] [place] [address] Care Team Providers Care Cushion Former Name Role Phone TraciHilary jose POWER MACHINE OPERATOR-LADIES' LOCKER ROOM ATTENDANT Primary Care Provi lazarus Encounter Details Date Type Department Care Team (Late st Contact Info) Description 09/27/2020 Telephone [facility] Physicians [facility] [address] [facility]. [address] [place] [phone] Eliz Zarco RN Social History Tobacco [...] Telephone Encounter - Eliz Zarco RN - 09/27/2020 10:00 AM EDT Patient calls, has an [employer] infusion here tomorrow. She has missed work for the past three days due to chronic diarrhea, fatigue and painful bowel movements. She is asking for work excuse for the days she has taken off. She will have to call her employer for further information, if you agree to the work excuse. Paper work has to be filled out and faxed to our office, note is not acceptable. Please advise * Telephone Encounter - Sharda Montiel MD - 09/27/2020 10:00 AM EDT Sure, that's ok. Have whatever paperwork is necessary sent over. Thank you. Either myself or Meaghan can complete it. * Telephone Encounter - Mary Estrella RN - 09/27/2020 10:00 AM EDT Sent SnapDash message to patient. documented in this encounter Plan of Treatment Upcoming Encounters Date Type Department Care Team (Late st Contact Info) Description 10/28/2024 1:30 PM EDT Office Visit [facility] [address] [place] [address] [place] [address] Sergio Thompson, [address] [facility], [facility], [place] [address] 11/03/2024 1:00 PM EDT Infusion [facility] [address] [phone] 12/02/2024 10:15 AM EDT Office Visit [facility] [place] - Medical Oncology [address] [place] [address] Quan Diaz MD [address] [facility] [address] [place] [address] 12/15/2024 1:00 PM EST Infusion [facility] [address] [facility] [address] [place] [phone] 12/31/2024 1:30 PM EST [facility] Visit [facility], A Department of [facility] [address] [facility] 103 [place] [phone] Josephine Turner PA [address] [facility]. [address] [place] [address] 01/11/2025 1:45 PM EST Office Visit [facility] [address] [phone] Cee Sagastume, POWER MACHINE OPERATOR-LADIES' LOCKER ROOM ATTENDANT [address] [facility], [address] [place] [address] documented as of this encounter Visit Diagnoses Not on filedocumented in this encounter Additional Health Concerns Infection Onset Date Last Indicated Resolved Time COVID-19 Rule-Out 12/25/2020 12/22/2020 12/25/2020 4:25 PM EST Enteric Rule-Out 07/18/2021 07/18/2021 07/19/2021 4:20 AM EDT COVID-19 Rule-Out 03/24/2022 03/24/2022 03/24/2022 10:15 PM EST COVID-19 Positive 03/24/2022 03/24/2022 04/14/2022 11:12 PM EST Assessment Noted Time PHQ-9 Depression Total Score: 23 0818/2 021 8:00 AM EDT documented as of this encounter Care Teams Cushion Former Relationship Specialty Start Date End Date Hilary Aviles, POWER MACHINE OPERATOR-LADIES' LOCKER ROOM ATTENDANT [address], [place] [address] PCP - General Family Medicine 01/03/24 documented as of this encounter
--- OUTSIDE RECORDS SUMMARY | 2024-10-18 21:05 | XMS_ITS | Encounter Summary ---
Author Organization [employer] Address [id number] [address] [place] [address] Care Team Providers Care Shipwright Supervisor Name Role Phone Hilary Aviles HANGERSMITH-CARE ANALYST Primary Care Provi lazarus Encounter Details Date Type Department Care Team (Late st Contact Info) Description 08/30/2020 Telephone [facility] [address] [place] [address] [address] Rubina Ordonez CMA Social History Tobacco Use Types Packs/Day Years Used Date Smoking Tobacco: Never Smokeless Tobacco: Never Alcohol Use Standard Drinks/Week Comments No 0 (1 standard drink = 0.6 oz pur e alcohol) PHQ-2 Answer Date Recorded Total Score 0 08/30/2020 Childcare Answer Date Recorded Childcare Unknown 07/10/2018 [...] have Coronavirus / COVID-19? No / Unsure 08/30/2020 3:49 PM EDT documented as of this encounter Miscellaneous Notes * Telephone Encounter - Rubina Ordonez CMA - 08/30/2020 11:47 AM EDT Patient called asking if she can go to the hospital for iron infusion instead of [facility], please advise. * Telephone Encounter - TERA Church - 08/30/2020 11:[address] Diaz is in charge of the iron infusions, so needs to be [facility] * Telephone Encounter - Rubina Ordonez CMA - 08/30/2020 11:47 AM EDT Left patient vm informing her. * Telephone Encounter - PAM Barth - 08/30/2020 11:47 AM EDT Patient called to inform us that she will be dropping off an Accommodation Request form on 09-21-20 to be filled out for [facility]. Said that the dates would be (09-20-20, 09-21-20, 09-22-20) documented in this encounter Plan of Treatment Upcoming Encounters Date Type Department Care Team ([facility] st Contact Info) Description 10/28/2024 1:30 PM EDT Office Visit [facility] [address] [place] [address] [place] [address] Sergio Thompson, [address] [place] [address], [address], [place] [address] 11/03/2024 1:00 PM EDT Infusion [facility] [address] [facility] [address] [place] [phone] 12/02/2024 10:15 AM EDT Office Visit [facility] - Medical Oncology [address] [place] [phone] Quan Diaz MD [address] [facility] [address] [place] [address] 12/15/2024 1:00 PM EST Infusion [facility] [address] [facility] [address] [place] [phone] 12/31/2024 1:30 PM EST Office Visit [facility], A Department of [facility] 57[address] [facility] [address] [place] [phone] Josephine Turner PA [address] [facility]. [address] [place] [address] 01/11/2025 1:45 PM EST Office Visit [facility] 2751 [facility] [address] [place] [address] Cee Sagastume, HANGERSMITH-CARE ANALYST [address] [facility], [address] [place] [address] documented as of this encounter Visit Diagnoses [...] Time PHQ-9 Depression Total Score: 0 08/31/19 3:00 PM EDT documented as of this encounter Care Teams Shipwright Supervisor Relationship Specialty Start Date End Date Hilary Aviles, HANGERSMITH-CARE ANALYST [address], [place] [address] PCP - General Family Medicine 01/03/24 documented as of this encounter
--- OUTSIDE RECORDS SUMMARY | 2024-10-18 21:05 | XMS_ITS | Encounter Summary ---
Author Organization [employer] Address [facility][id number] [address] [place] [address] Care Team Providers Care Software Reverse Engineer Name Role Phone Hilary Aviles TILE INSPECTOR-PRESS OPERATOR AUTOMATIC Primary Care Provi lazarus Reason for Visit * Reason Onset Date Comments Med Refill 10/15/2019 Med Refill 10/19/2019 Encounter Details Date Type Department Care Team (Late st Contact Info) Description 10/15/2019 Refill [facility] [address] [place] [phone] Michela Martinez CMA Crohn's disease of both small and [...] encounter Miscellaneous Notes * Telephone Encounter - Michela Martinez CMA - 10/15/2019 4:13 PM EDT Patient called requested refill on [employer] - Order entered - Pending your approval Thank You Michela Martinez CMA 10/15/19 1614 documented in this encounter Plan of Treatment Upcoming Encounters Date Type Department Care Team (Late st Contact Info) Description 10/28/2024 1:30 PM EDT Office Visit [facility] [address] [place] [address] [place] [phone] Sergio Thompson, [address] [place] [address], [facility], [facility] D [place], [place] [phone] 11/03/2024 1:00 PM EDT Infusion [facility] Infusion [address] [place] [phone] 12/02/2024 10:15 AM EDT Office Visit [facility] - Medical Oncology [address] [place] [phone] Quan Diaz MD [address] [place] [address] [address] [place] [address] 12/15/2024 1:00 PM EST Infusion [facility] In[facility] [address] [place] [phone] 12/31/2024 1:30 PM EST Office Visit [facility], A Department of [address] [phone] [place] [address] [place] [address] 01/11/2025 1:45 PM EST Office Visit [facility] [address] [facility] [address] [place] [address] Cee Sagastume, TILE INSPECTOR-PRESS OPERATOR AUTOMATIC [address] [facility], [address] [place] [address] documented as of this encounter [...] documented as of this encounter Care Teams Software Reverse Engineer Relationship Specialty Start Date End Date Hilary Aviles, TILE INSPECTOR-PRESS OPERATOR AUTOMATIC [address], [place] [address] PCP - General Family Medicine 01/03/24 documented as of this encounter
--- OUTSIDE RECORDS SUMMARY | 2024-10-18 21:05 | XMS_ITS | Encounter Summary ---
Author Organization [facility] [employer] Address [facility][id number] [address] [place] [address] Care Team Providers Care Junior Database Administrator Name Role Phone TraciHilary jose ELECTRICAL INSTALLATION SUPERVISOR-FIELD CONTRACTOR Primary Care Provi lazarus Encounter Details Date Type Department Care Team (Late st Contact Info) Description 01/08/2021 [facility] [address] [facility]. [address] [place] [phone] Emma Kramer RN Social History Tobacco Use Types Packs/Day [...] have Coronavirus / COVID-19? No / Unsure 01/11/2021 9:09 AM EST documented as of this encounter Miscellaneous Notes * Telephone Encounter - Emma Kramer RN - 01/08/2021 10:06 AM EST Patient has changed jobs and her insurance has changed. She is now through [employer] until her new plan starts after the 90 day probation period. She will call the office with the new insurance information once available. She is due for an infusion today. An auth for Renflexis was initiated and approved as this is [place]'s formulary. Auth is in place until 06/2021. Today is her first maintenance infusion. documented in this encounter Plan of Treatment Upcoming Encounters Date Type Department Care Team (Late st Contact Info) Description 10/28/2024 1:30 PM EDT Office Visit [facility] [address] [place] [phone] Sergio Thompson, [address], [facility], [facility] D [place], [place] [phone] 11/03/2024 1:00 PM EDT Infusion [facility] Infusion [address] [place] [phone] 12/02/2024 10:15 AM EDT Office [facility] [address] [place] [phone] Quan Diaz MD [address] [place] [address] [address] [place] [address] 12/15/2024 1:00 PM EST Infusion [facility] In[facility] [address] [place] [address] [address] [place] [phone] 12/31/2024 1:30 PM EST Office Visit [facility], A Department of [address] [phone] [place] [address] [place] [address] 01/11/2025 1:45 PM EST Office Visit [facility] [address] [facility] [address] [place] [address] Cee Sagastume, ELECTRICAL INSTALLATION SUPERVISOR-FIELD CONTRACTOR [address] [facility], [address] [place] [address] documented as of this encounter Visit Diagnoses Not on filedocumented in this encounter Additional Health Concerns Infection Onset Date Last Indicated Resolved Time Enteric Rule-Out 07/18/2021 07/18/2021 07/19/2021 4:20 AM EDT COVID-19 Rule-Out 03/24/2022 03/24/2022 03/24/2022 10:15 PM EST COVID-19 Positive 03/24/2022 03/24/2022 04/14/2022 11:12 PM EST Assessment Noted Time PHQ-9 Depression Total Score: 11 11/23/ 021 1:00 PM EDT documented as of this encounter Care Teams Junior Database Administrator Relationship Specialty Start Date End Date Hilary Aviles, ELECTRICAL INSTALLATION SUPERVISOR-FIELD CONTRACTOR [address] [place] [place] [address] PCP - General Family Medicine 01/03/24 documented as of this encounter
--- OUTSIDE RECORDS SUMMARY | 2024-10-18 21:05 | XMS_ITS | Encounter Summary ---
Author Organization [employer] Address [facility][id number] [address] [place] [address] Care Team Providers Care Drug Abuse Counselor Name Role Phone Hilary Aviles CAFE OR RESTAURANT MANAGER-PARTS FACILITATOR Primary Care Provi lazarus Encounter Details Date Type Department Care Team (Late st Contact Info) Description 12/03/2019 Telephone [facility] [address] [place] [address] [place] [address] Roxanne Staley CMA Social History [...] have Coronavirus / COVID-19? No / Unsure 12/06/2019 11:24 AM EDT documented as of this encounter Miscellaneous Notes * Telephone Encounter - Roxanne Staley CMA - 12/03/2019 10:01 AM EDT Patient called because she hasnt been eating and has diarrhea. She was unsure if it was due to the medication. I explained that if she isnt eating at all, that could cause her to have diarrhea as she's only on a liquid diet. She then stated she just is too tired and lazy to get out of bed to even eat. I told her she may need to go to hospital as she may be dehydrated, patient agreed. I did make her an appt for Friday though. Roxanne Staley CMA 12/03/19 1003 documented in this encounter Plan of Treatment Upcoming Encounters Date Type Department Care Team (Late st Contact Info) Description 10/28/2024 1:30 PM EDT Office Visit [facility] [address] [place] [phone] Sergio Thompson, [address], [facility] B, [place] [address] 11/03/2024 1:00 PM EDT Infusion [facility] In[facility] [address] [place] [phone] 12/02/2024 10:15 AM EDT Office Visit [facility] - Medical Oncology [address] [place] [phone] Quan Diaz MD [address] [place] [address] [address] [place] [address] 12/15/2024 1:00 PM EST Infusion [facility] In[facility] [address] [place] [phone] 12/31/2024 1:30 PM EST Office Visit [facility], A Department of [address] [phone] Josephine Turner PA [address] [place] [address] [address] [place] [address] 01/11/2025 1:45 PM EST Office Visit [facility] [address] [facility] [address] [place] [phone] Cee Sagastume, CAFE OR RESTAURANT MANAGER-PARTS FACILITATOR 5702 [facility], [address] [place] [address] documented as of this encounter Visit Diagnoses [...] documented as of this encounter Care Teams Drug Abuse Counselor Relationship Specialty Start Date End Date Hilary Aviles, CAFE OR RESTAURANT MANAGER-PARTS FACILITATOR [address], [place] [address] PCP - General Family Medicine 01/03/24 documented as of this encounter
--- OUTSIDE RECORDS SUMMARY | 2024-10-18 21:05 | XMS_ITS | Clinical Summary ---
Author Organization [facility] Address [address] [facility], [address] [place] [address] Care Team Providers Care Product Developer Name Role Phone Unavailable Primary Care Provider Unavailabl e Social History Tobacco Use Types Packs/Day Years Used Date Smoking Tobacco: Never Assessed Comments Unknown Sex and Gender Information Value Date Recorded Sex Assigned at Not on file Legal Sex Female 11:54 PM EST Gender Identity Not on file Sexual Orientation Not on file Plan of Treatment Not on file
--- OUTSIDE RECORDS SUMMARY | 2024-10-18 21:05 | XMS_ITS | Encounter Summary ---
Author Organization [facility] Address [facility] [place]-[id number] [address] [place] [address] Care Team Providers Care Flight Attendant Inflight Services Name Role Phone Hilary Aviles APRN-SUPERVISOR DRIED YEAST Primary Care Provi lazarus Reason for Visit * Reason Comments Med Refill Encounter Details Date Type Department Care Team (Late st Contact Info) Description 05/01/2021 Refill [facility] [address] [place] [phone] Meaghan King PA-C [address] [place] [address] Crohn's disease of both small and large intestine with intestinal obstruction ([facility]) Social History Tobacco Use Types Packs/Day Years [...] Office Visit [facility] [address] [place] [address] [place] [phone] Sergio Thompson, [address] [place], [address], [address] [place], [place] [address] 11/03/2024 1:00 PM EDT Infusion [facility] Infusion [address] [place] [address] [address] [place] [phone] 12/02/2024 10:15 AM EDT [facility] [address] [place] [phone] [place] [address] [place] [address] [address] [place] [address] 12/15/2024 1:00 PM EST Infusion [facility] Infusion [address] [facility] 114 [place] [phone] 12/31/2024 1:30 PM EST Office Visit [facility], A Department [facility] [address] [place] [address] 103 [place] [phone] Josephine Turner, PA [address] [facility]. [address] [place] [address] 01/11/2025 1:45 PM EST Office Visit [facility] [address] [facility] 302 [place] [phone] Cee Sagastume, GEOSCIENCE TECHNICIAN-SUPERVISOR DRIED YEAST [address] [facility], [address] [place] [address] documented as of this encounter Visit Diagnoses [...] documented as of this encounter Care Teams Flight Attendant Inflight Services Relationship Specialty Start Date End Date Hilary Aviles, GEOSCIENCE TECHNICIAN-SUPERVISOR DRIED YEAST [address], [place] [address] PCP - General Family Medicine 01/03/24 documented as of this encounter
--- OUTSIDE RECORDS SUMMARY | 2024-10-18 21:05 | XMS_ITS | Encounter Summary ---
Author Organization [facility] Address [facility]-[id number] [address] [place] [address] Care Team Providers Care Controlled Atmospheric Furnace Brazer Name Role Phone Hilary Aviles DISCHARGE PLANNER-GRAIN ELEVATOR SUPERINTENDENT Primary Care Provi lazarus Encounter Details Date Type Department Care Team (Late st Contact Info) Description 08/23/2020 Orders Only [facility] [address] [facility]. [address] [place] [address] Renu Huntley PA-C [address] [facility] 101 [place] [address] Vitamin D deficiency (Primary Dx); Iron deficiency anemia, unspecified iron deficiency anemia type Social History Tobacco Use Types Packs/Day Years [...] have Coronavirus / COVID-19? No / Unsure 08/24/2020 6:33 PM EDT documented as of this encounter Plan of Treatment Upcoming Encounters Date Type Department Care Team ([facility] st Contact Info) Description 10/28/2024 1:30 PM EDT Office Visit [facility] [address] [place] [address] [place] [phone] Sergio Thompson, DO [address] [facility], [address], [address] [place], [place] [phone] 11/03/2024 1:00 PM EDT Infusion [facility] Infusion [address] [place] [phone] 12/02/2024 10:15 AM EDT Office Visit [facility] [address] [place] [phone] Quan Diaz MD [address] [place] [address] [address] [place] [address] 12/15/2024 1:00 PM EST Infusion [facility] Infusion [address] [place] [address] 114 [place] [phone] 12/31/2024 1:30 PM EST [facility], A Department of [address] [address] [place] [address] [place] [address]. [address] [place] [address] 01/11/2025 1:45 PM EST Office Visit [facility] [address] [facility] 302 [place] [address] Cee Sagastume, DISCHARGE PLANNER-GRAIN ELEVATOR SUPERINTENDENT [address] [place] [address], [address] [place], [place] [phone] documented as of this encounter Results * (ABNORMAL) CBC auto differential (11/22/2020 11:30 AM EDT) White Blood Cells 4.2 4.0 - 11.0 X10E9/L 11/22/2020 3:51 PM EDT [facility] RBC count 4.21 3.80 - 5.20 X10E12/L 11/22/2020 3:51 PM EDT [facility] Hemoglobin 12.8 11.7 - 15.5 g/dL 11/22/2020 3:51 PM EDT [facility] Hematocrit 39.5 35 - 47 % 11/22/2020 3:51 PM EDT [facility] MCV 94 80 - 100 fL 11/22/2020 3:51 PM EDT [facility] MCH 30.4 27 - 34 pg 11/22/2020 3:51 PM EDT [facility] MCHC 32.5 32 - 36 g/dL 11/22/2020 3:51 PM EDT [facility] RDW 18.0(H) 11.5 - 15.0 % 11/22/2020 3:51 PM EDT [facility] Platelets 228 150 - 450 X10E9/L 11/22/2020 3:51 PM EDT [facility] MPV 10.1 7 - 12 fL 11/22/2020 3:51 PM EDT [facility] % neutrophils 38.1 % 11/22/2020 3:51 PM EDT [facility] % lymphocytes 50.5 % 11/22/2020 3:51 PM EDT [facility] % monocytes 8.9 % 11/22/2020 3:51 PM EDT [facility] % eosinophils 1.9 % 11/22/2020 3:51 PM EDT [facility] % Basophils 0.6 % 11/22/2020 3:51 PM EDT [facility] Neutrophils Absolute (A) 1.6 1.5 - 6.6 X10E9/L 11/22/2020 3:51 PM EDT [facility] Lymphocytes Absolute 2.1 1.0 - 3.5 X10E9/L 11/22/2020 3:51 PM EDT [facility] Monocytes Absolute 0.4 0 - 0.9 X10E9/L 11/22/2020 3:51 PM EDT [facility] Eosinophils Absolute 0.1 0.0 - 0.4 X10E9/L 11/22/2020 3:51 PM EDT [facility] Basophils Absolute 0.0 0.0 - 0.2 X10E9/L 11/22/2020 3:51 PM EDT [facility] Serum / Unknown 11/22/2020 1 1:30 AM EDT 11/22/2020 11:33 AM EDT us Renu Huntley PA-C LAB BLOOD ORDERABLES Ning l Result [place] [facility] [address] [facility], [address] [place] [address] * (ABNORMAL) Vitamin D 25 hydroxy (11/22/2020 11:30 AM EDT) Vit D, 25-Hydroxy 12.5(L) 30 - 100 ng/mL 11/22/2020 4:21 PM EDT [facility] Comment: Vitamin D status 25 [place] Vitamin D Deficiency <20 ng/mL Insufficiency 20-29 ng/mL Sufficiency 30-100 ng/mL Toxicity >100 ng/mL NOTE: A pediatric reference range has not been established by the liner roll changer of this kit. The [employer] recommends a Vitamin D level of = or >20ng/mL in infants and children. Serum / Unknown 11/22/2020 1 1:30 AM EDT 11/22/2020 11:33 AM EDT us Renu Huntley PA-C LAB BLOOD ORDERABLES Ning colvin Result [place] [facility] [address] [facility], [address] [place] [address] documented in this encounter Visit Diagnoses Diagnosis Vitamin D deficiency- Primary Iron deficiency anemia, unspecified iron deficiency anemia type documented in this encounter Additional Health Concerns [...] documented as of this encounter Care Teams Controlled Atmospheric Furnace Brazer Relationship Specialty Start Date End Date Hilary Aviles, DISCHARGE PLANNER-GRAIN ELEVATOR SUPERINTENDENT [address], [place] [address] PCP - General Family Medicine 01/03/24 documented as of this encounter
--- OUTSIDE RECORDS SUMMARY | 2024-10-18 21:05 | XMS_ITS | Encounter Summary ---
Author Organization [facility] [employer] [facility] Address [facility]-[id number] [address] [place] [address] Care Team Providers Care Fisher Net Name Role Phone TraciHilary jose PETROLEUM ENGINEERING PROFESSOR-AUTOMATIC EQUIPMENT TECHNICIAN Primary Care Provi lazarus Encounter Details Date Type Department Care Team (Late Contact Info) Description 02/07/2022 Orders Only [facility] [address] [facility]. [address] [place] [phone] Nic Howard RN Social History Tobacco Use Types Packs/Day [...] have Coronavirus / COVID-19? No / Unsure 02/08/2022 10:23 AM EST documented as of this encounter Plan of Treatment Upcoming Encounters Date Type Department Care Team (Late Contact Info) Description 10/28/2024 1:30 PM EDT Office Visit [facility] [address] [place] [address] [place] [phone] Sergio Thompson, 605 [facility], [address], [address] [place], [place] [phone] 11/03/2024 1:00 PM EDT Infusion [facility] Infusion [address] [place] [address] 114 [place] [phone] 12/02/2024 10:15 AM EDT Office Visit Ally [facility] - Medical Oncology [address] [place] [phone] Quan Diaz MD [address] [place] [address] [address] [place] [address] 12/15/2024 1:00 PM EST Infusion [facility] Infusion [address] [place] [address] 114 [place] [phone] 12/31/2024 1:30 PM EST Office Visit [facility], A Department of [address] [place] [phone] Josephine Turner, PA [address] [facility]. [address] [place] [address] 01/11/2025 1:45 PM EST Office Visit [facility] [address] [facility] 302 [place] [phone] Cee Sagastume, PETROLEUM ENGINEERING PROFESSOR-AUTOMATIC EQUIPMENT TECHNICIAN [address] [place] [address], [address] [place] [address] documented as of this encounter Visit Diagnoses Not on filedocumented in this encounter Additional Health Concerns Infection Onset Date Last Indicated Resolved Time COVID-19 Rule-Out 03/24/2022 03/24/202203/2403/24/2022 10:15 PM EST COVID-19 Positive 03/24/2022 03/24/2022 04/14/2022 11:12 PM EST Assessment Noted Time PHQ-9 Depression Total Score: 11 021 1:00 PM EDT documented as of this encounter Care Teams Fisher Net Relationship Specialty Start Date End Date Hilary Aviles, PETROLEUM ENGINEERING PROFESSOR-AUTOMATIC EQUIPMENT TECHNICIAN [address], [place] [address] PCP - General Family Medicine 01/03/24 documented as of this encounter
--- OUTSIDE RECORDS SUMMARY | 2024-10-18 21:05 | XMS_ITS | Encounter Summary ---
Author Organization [facility] Address [facility]-[id number] [address] [place] [address] Care Team Providers Care Communications Analyst Name Role Phone Hilary Aviles APRN-COMPLAINT CLERK Primary Care Provi lazarus Encounter Details Date Type Department Care Team (Late st Contact Info) Description 12/09/2019 Documentation [facility] - [facility] On[facility] [address] [place] [phone] Carolina Mcghee, [facility] [address] [place] [phone] Social History Tobacco Use Types Packs/Day Years [...] AM EDT documented as of this encounter Plan of Treatment Upcoming Encounters Date Type Department Care Team (Late st Contact Info) Description 10/28/2024 1:30 PM EDT Office Visit [facility] [address] [place] [address] [place] [phone] Sergio Thompson, 605 [facility], [address], [address] [place], [place] [address] 11/03/2024 1:00 PM EDT Infusion [facility] Infusion [address] [place] [address] [address] [place] [phone] 12/02/2024 10:15 AM EDT [facility] [address] [place] [phone] [place] [address] [place] [address] [address] [place] [address] 12/15/2024 1:00 PM EST Infusion [facility] Infusion [address] [place] [address] [address] [place] [phone] 12/31/2024 1:30 PM EST Office [facility], A Department [facility] [address] [place] [address] 103 [place] [phone] Josephine Turner, PA [address] [facility]. [address] [place] [address] 01/11/2025 1:45 PM EST Office Visit [facility] 2751 [facility] 302 [place] [phone] Cee Sagastume, CHIEF MARKETING OFFICER-COMPLAINT CLERK [address] [place] [address], [address] [place] [address] documented as of this encounter Visit Diagnoses [...] documented as of this encounter Care Teams Communications Analyst Relationship Specialty Start Date End Date Hilary Aviles, CHIEF MARKETING OFFICER-COMPLAINT CLERK [address], [place] [address] PCP - General Family Medicine 01/03/24 documented as of this encounter
--- OUTSIDE RECORDS SUMMARY | 2024-10-18 21:05 | XMS_ITS | Encounter Summary ---
Author Organization [employer] Address [facility] [id number] [address] [place] [address] Care Team Providers Care Projection Printer Name Role Phone Hilary Aviles LOCOMOTIVE SWITCH OPERATOR-TUBE TEST TECHNICIAN Primary Care Provi lazarus Reason for Visit * Reason Onset Date Comments Appointment 08/28/2020 Encounter Details Date Type Department Care Team (Late st Contact Info) Description 08/28/2020 Telephone [facility] [address] [place] [phone] Tasneem Sandoval Appointment Social History Tobacco Use Types Packs/Day Years [...] encounter Miscellaneous Notes * Telephone Encounter - Tasneem Sandoval - 08/28/2020 11:38 AM EDT Left vm requesting call back to sched inpatient services director appt w/ dr acevedo. Thanks. documented in this encounter Plan of Treatment Upcoming Encounters Date Type Department Care Team (Late st Contact Info) Description 10/28/2024 1:30 PM EDT Office Visit [facility] [address] [place] [address] [place] [phone] Sergio Thompson, [address] [place] [address], [address], [place] [address] 11/03/2024 1:00 PM EDT Infusion [facility] Infusion [address] [place] [phone] 12/02/2024 10:15 AM EDT Office Visit Ally [facility] - Medical Oncology [address] [place] [phone] Quan Diaz MD [address] [place] [address] [address] [place] [address] 12/15/2024 1:00 PM EST Infusion [facility] Infusion [address] [place] [phone] 12/31/2024 1:30 PM EST [facility] Visit [facility], A Department of [address] [phone] [place] [address] [place] [address] 01/11/2025 1:45 PM EST Office Visit [facility] [address] [place] [address] [phone] Cee Sagastume, LOCOMOTIVE SWITCH OPERATOR-TUBE TEST TECHNICIAN [address] [facility], [address] [place] [address] documented as of this encounter Visit Diagnoses [...] documented as of this encounter Care Teams Projection Printer Relationship Specialty Start Date End Date Hilary Aviles, LOCOMOTIVE SWITCH OPERATOR-TUBE TEST TECHNICIAN [address], [place] [address] PCP - General Family Medicine 01/03/24 documented as of this encounter
--- OUTSIDE RECORDS SUMMARY | 2024-10-18 21:05 | XMS_ITS | Encounter Summary ---
Author Organization [facility] Address [address] [place] [address] Care Team Providers Care Package Line Operator Name Role Phone Hilary Aviles MD Unavailable [phone] Encounter Details Date Type Department Care Team (Late Contact Info) Description 09/13/2022 Abstract [facility] [address] [place] [address] [place] [address] Yaquelin Horne PA [address] [facility] [address] [place], [place] [address] Social History Tobacco Use Types Packs/Day Years Used Date Smoking Tobacco: Never Tobacco Cessation:Counseling Given: Not Answered [...] PM EDT Procedure Visit [facility] [address] [place] [address] [place] [address] Parish Valdez DO [address] [place] [address] Dr Hernán Jarrett, [facility] documented as of this encounter Visit Diagnoses Not on filedocumented in this encounter Care Teams Package Line Operator Relationship Specialty Start Date End Date Hilary Aviles MD [address] [place] [address] Referring Physician Nurse Practitioner 10/08/22 documented as of this encounter
--- OUTSIDE RECORDS SUMMARY | 2024-10-18 21:06 | XMS_ITS | Encounter Summary ---
Author Organization [employer] Address [facility][id number] [address] [place] [address] Care Team Providers Care Hall Coordinator Name Role Phone Hilary Aviles APRN-MUSIC STORE MANAGER Primary Care Provi lazarus Reason for Visit * Reason Comments Med Refill Encounter Details Date Type Department Care Team (Late Contact Info) Description 01/21/2018 Refill [facility] [address] [place] [phone] Sharda Montiel MD [address] [place] [address], [address] [place] [address] Social History Tobacco Use Types [...] Visit [facility] [address] [place] [address] [place] [phone] Sergio Thompson, [address] [place] [address] [address], [place] [address] 11/03/2024 1:00 PM EDT Infusion [facility] Infusion [address] [place] [address] [address] [place] [phone] 12/02/2024 10:15 AM EDT Office Visit [facility] - [facility] Oncology [address] [place] [phone] Quan Diaz MD [address] [facility] [address] [place] [address] 12/15/2024 1:00 PM EST Infusion [facility] [address] [place] [address] [address] [place] [phone] 12/31/2024 1:30 PM EST Office Visit [facility], A Department of [facility] [address] [place] [address] [address] [place] [phone] [place] [address] [place] [address]. [address] [place] [address] 01/11/2025 1:45 PM EST Office Visit [facility] [address] [phone] Cee Sagastume, BUSINESS PROCESS MANAGER-MUSIC STORE MANAGER [address] [place] [address], [address] [place] [address] documented as of this encounter Visit Diagnoses Not on filedocumented in this encounter Additional Health Concerns Infection Onset Date Last Indicated Resolved Time COVID-19 Rule-Out 12/25/2020 12/22/2020 12/25/2020 4:25 PM EST Enteric Rule-Out 07/18/2021 07/18/2021 07/19/2021 4:20 AM EDT COVID-19 Rule-Out 03/24/2022 03/24/2022 03/24/2022 10:15 PM EST COVID-19 Positive 03/24/2022 03/24/2022 04/14/2022 11:12 PM EST documented as of this encounter Care Teams Hall Coordinator Relationship Specialty Start Date End Date Hilary Aviles, PAUL-MUSIC STORE MANAGER [address], Matthew Solano [place], [place] [phone] PCP - General Family Medicine 01/03/24 documented as of this encounter
--- OUTSIDE RECORDS SUMMARY | 2024-10-18 21:06 | XMS_ITS | Clinical Summary ---
Author Organization [facility] Address [address] [place] [address] Care Team Providers Care Stain Applicator Name Role Phone Harris Cerda MD Primary Care Provider [phone] Allergies No known active allergies Medications sertraline (ZOLOFT) 50 mg tablet Take 50 mg by mouth once daily. Active cyclobenzaprine (FLEXERIL) 10 mg tablet Take 10 mg by mouth three times daily as needed. Active traZODone (DESYREL) 50 mg tablet Take 50 mg by mouth as needed. Active buPROPion XL (WELLBUTRIN XL) 150 mg 24 hr tablet 07/26/2016 Active hydrOXYzine HCl (ATARAX) 50 mg tablet 07/29/2016 Active Active Problems Problem Noted Date Diagnosed Date Anemia 05/28/2016 Social History Tobacco Use Types Packs/Day Years Used Date Smoking Tobacco: Never Smokeless Tobacco: Never Alcohol Use Standard Drinks/Week Comments No 0 (1 standard drink = 0.6 oz pur e alcohol) Comments No Sex and Gender Information Value Date Recorded Sex Assigned at Not on file Legal Sex Female 3:38 PM EDT Gender Identity Not on file Sexual Orientation Not on file Last Filed Vital Signs Vital Sign Reading Time Taken Comments Blood Pressure 97/64 12/03/2016 1:30 PM EDT Pulse 76 12/03/2016 1:30 PM EDT Temperature 37.2 C (98.9 F) 12/03/2016 1:30 PM EDT Respiratory Rate 18 12/03/2016 1:30 PM EDT Oxygen Saturation 99% 12/03/2016 1:3 0 PM EDT Inhaled Oxygen Concentration - - Weight 59.6 kg (131 lb 8 oz) 11/19/2016 11:13 AM EDT with steel toed shoes on Height 163.2 cm (5' 4.25 ) 11/19/2016 1 1:13 AM EDT Body Mass Index 22.4 11/19/2016 11:13 AM EDT Plan of Treatment Health Maintenance Due Date Last Done Comments Anxiety Screening 11/11/2007 Depression Screening 11/11/2007 HIV Screening 11/11/2007 Hepatitis C Screening 11/11/2007 DTaP,Tdap,Td Vaccine (1 - Tdap) 2008 Hepatitis B Vaccine (1 of 3 - 19+ 3-dose series) 11/10 Cervical Cancer Screening 2010 HPV Vaccine (1 - 3-dose SCDM series) 2016 Influenza Vaccine (#1) 2024 Care Teams Stain Applicator Relationship Specialty Start Date End Date Imm, Harris García MD PCP - General Family Medicine 05/20/16
--- OUTSIDE RECORDS SUMMARY | 2024-10-18 21:06 | XMS_ITS | Encounter Summary ---
Author Organization [facility] Sys tem Address [id number] [address] [place] [address] Care Team Providers Care Director Of Hotel Operations Name Role Phone Hilary Aviles ICT SECURITY SPECIALIST-PERSONAL CLOTHING LAUNDRY AIDE Primary Care Provi lazarus Reason for Visit * Reason Comments Med Refill Encounter Details Date Type Department Care Team (Late st Contact Info) Description 07/07/2019 Refill [facility] [address] [place] [phone] Sharda Montiel MD [address] [place] [address], [address] [place] [address] Social History Tobacco Use Types [...] have Coronavirus / COVID-19? No / Unsure 07/08/2019 12:55 PM EDT documented as of this encounter Miscellaneous Notes * Telephone Encounter - Sharda Montiel MD - 07/07/2019 5:06 PM EDT Please notify the pharmacy that yes it is okay to use cholecalciferol instead of ergocalciferol, 4000 units daily to begin in 8 weeks. Thank you. * Telephone Encounter - Leydi Oglesby MA - 07/07/2019 5:06 PM EDT Spoke with pharmacy and they are aware of this documented in this encounter Plan of Treatment Upcoming Encounters Date Type Department Care Team (Late st Contact Info) Description 10/28/2024 1:30 PM EDT Office Visit [facility] [address] [place] [address] [place] [phone] Sergio Thompson, [address] [place] [address], [facility] [address], [address] [place], [place] [phone] 11/03/2024 1:00 PM EDT Infusion [facility] [address] [place] [phone] 12/02/2024 10:15 AM EDT Office Visit [facility] - [facility] On[facility] [place] [address] Quan Diaz MD [address] [place] [address] [address] [place] [address] 12/15/2024 1:00 PM EST Infusion [facility] [address] [phone] 12/31/2024 1:30 PM EST Office Visit [facility] [address] [facility] [address] [place] [address] Josephine Turner, PA [address] [facility]. [address] [place] [address] 01/11/2025 1:45 PM EST Office Visit [facility] [address] [facility] [address] [place] [phone] Cee Sagastume, ICT SECURITY SPECIALIST-PERSONAL CLOTHING LAUNDRY AIDE [address] [facility], [address] [place] [address] documented as of this encounter Visit Diagnoses Not on filedocumented in this encounter Additional Health Concerns Infection Onset Date Last Indicated Resolved Time COVID-19 Rule-Out 12/25/2020 12/22/2020 12/25/2020 4:25 PM EST Enteric Rule-Out 07/18/2021 07/18/2021 07/19/2021 4:20 AM EDT COVID-19 Rule-Out 03/24/2022 03/24/2022 03/24/2022 10:15 PM EST COVID-19 Positive 03/24/2022 03/24/2022 04/14/2022 11:12 PM EST Assessment Noted Time PHQ-9 Depression Total Score: 0 06/23/19 20 11:00 AM EDT documented as of this encounter Care Teams Director Of Hotel Operations Relationship Specialty Start Date End Date Hilary Aviles, ICT SECURITY SPECIALIST-PERSONAL CLOTHING LAUNDRY AIDE [address], [place] [address] PCP - General Family Medicine 01/03/24 documented as of this encounter
--- OUTSIDE RECORDS SUMMARY | 2024-10-18 21:07 | XMS_ITS | CCD ---
Author Organization [facility] Care Team Providers Care Licensed Funeral Director Name Role Phone ADAMOWICZ, SAMARA J Unavailable Unavailable ADAMOWICZ, SAMARA J Unavailable Unavailable ADAMOWICZ, SAMARA J Unavailable Unavailable ADAMOWICZ, SAMARA J Unavailable Unavailable ADAMOWICZ, SAMARA J Unavailable Unavailable ADAMOWICZ, SAMARA J Unavailable Unavailable ADAMOWICZ, SAMARA J Unavailable Unavailable ADAMOWICZ, SAMARA J Unavailable Unavailable SEBASTIAN HERRING Attending Unavailable SEBASTIAN HERRING Consulting Unavailable SEBASTIAN HERRING Admitting [facility] VELAZCO Primary Care Unavailable Hilary Aviles MD Unavailable Traci PROJECT MANAGER/TEAM COACH-URGENT CARE PHYSICIAN ASSISTANT, Hilary A Primary Care Provi lazarus Traci PROJECT MANAGER/TEAM COACH-URGENT CARE PHYSICIAN ASSISTANT, Hilary A Primary Care Provi lazarus Traci PROJECT MANAGER/TEAM COACH-URGENT CARE PHYSICIAN ASSISTANT, Hilary A Primary Care Provi lazarus CEE TURNER Attending Unavailable HILARY AVILES Referring Unavailable HILARY AVILES A Primary Care Unavailable OZZIE, YAQUELIN Attending Unavailable COURTNEYLISAY Attending Unavailable COURTNEYLISAY Attending Unavailable OZZIE, YAQUELIN Attending Unavailable COURTNEYLISAY Attending Unavailable OZZIE, YAQUELIN Attending Unavailable OZZIE, YAQUELIN Attending Unavailable COURTNEY, PARISH Attending Unavailable HILARY AVILES A Attending Unavailable HILARY AVILES A Referring Unavailable HILARY AVILES A Primary Care Unavailable HILARY AVILES A Attending Unavailable HILARY AVILES A Referring Unavailable HILARY AVILES A Primary Care Unavailable HILARY AVILES Attending Unavailable HILARY AVILES A Referring Unavailable HILARY AVILES A Primary Care Unavailable RAULITO JIMENEZ Attending Unavailable TRACI, HILARY A Referring Unavailable TRACI, HILARY A Primary Care Unavailable TRACI, HILARY A Referring Unavailable TRACI, HILARY A Primary Care Unavailable MIGUEL ANGEL HERNANDEZ Referring Unavailable TRACI, HILARY A Primary Care [...] Unavailable TRACI, HILARY A Primary Care Unavailable KAROLYN SHAFFER Attending Unavailable TRACI, HILARY A Referring Unavailable TRACI, HILARY A Primary Care Unavailable JAYJAY CLAYTON Referring Unavailable TRACI, HILARY A Primary Care Unavailable TRACI, HILARY A Primary Care Unavailable RITA BROOKE Attending Unavailable TRACI, HILARY A Referring Unavailable [...] Unavailable TRACI, HILARY A Primary Care Unavailable ROSALINO NORRIS Attending Unavailable SESAR KAY Admitting Unavailable COURTNEY, PARISH R Referring Unavailable TRACI, HILARY A Primary Care Unavailable [facility] Consulting Juana MANUELITO Kelly Consulting Unavailable SHARDA MONTIEL Consulting Unavailable [facility], [facility] Consulti ng Unavailable TRACI, HILARY A Primary Care Unavailable COURTNEY, PARISH R Referring Unavailable TRACI, HILARY A Referring Unavailable TRACI, HILARY A Primary Care Unavailable TRACI, HILARY A Primary Care Unavailable COURTNEY, PARISH R Referring Unavailable TRACI, HILARY A Primary Care Unavailable COURTNEY, PARISH R Referring Unavailable ANTOINE RUDOLPH Referring Unavailable TRACI, HILARY A Primary Care Unavailable CLARE PACHECO Referring Unavailable TRACI, HILARY A Primary Care Unavailable ROBER BERNAL Attending Unavailable TRACI, HILARY A Primary Care Unavailable VINITA NUNES Referring Unavailable TRACI, HILARY A Primary Care Unavailable SALLYD, SHAWN Referring Unavailable TRACI, HILARY A Primary Care Unavailable LAURA WOO Referring Unavailable TRACI, HILARY A Primary Care Unavailable SALLYD, SHAWN Referring Unavailable TRACI, HILARY A Primary Care Unavailable LORAINE CHAPMAN Attending Unavailable TRACI, HILARY A Primary Care Unavailable ALES, VINITA Referring Unavailable TRACI, HILARY A Primary Care Unavailable NORMA KINNEY Attending Unavailabl e TRACI, HILARY A Referring Unavailable TRACI, HILARY A Primary Care Unavailable AL-PADMINI LOPEZ Attending Unavailabl e TRACI, HILARY A Referring Unavailable TRACI, HILARY A Primary Care Unavailable TRACI, HILARY A Primary Care Unavailable SESAR KAY Admitting Unavailable SESAR KAY Attending Unavailable TRACI, HILARY A Primary Care Unavailable AL-AMEYA LOPEZAFA A Consulting UnavailIFTIKHAR Khan Consulting Unavailable NORMA KINNEY Attending UnavailSTEPHANIE Davidson Referring Unavailable TRACI, HILARY A Primary Care Unavailable TRACI, HIALRY A Referring Unavailable TRACI, HILARY A Primary Care Unavailable ALMADASHARDA SALOMON B Attending Unavailable TRACI, HILARY A Referring Unavailable TRACI, HILARY A Primary Care Unavailable ALMNATALY JOHNH B Referring Unavailable TRACI, HILARY A Primary Care Unavailable TRACI, HILARY A Primary Care Unavailable SESAR KAY Admitting Unavailable SESAR KYA Attending Unavailable TRACI, HILARY A Primary Care Unavailable PADMINI WILSON Attending UnavailHILARY Vyas A Referring Unavailable TRACI, HILARY A Primary Care Unavailable JAYJAY CLAYTON Attending Unavailable ALMADAUMM, SAMEH B Referring Unavailable TRACI, HILARY A [...] Drug Class(es) Dates Sig (Normalized) Sig (Original) [id number] 200 actuat albuterol 0.09 mg/actuat metered dose [...] of breath. 18 g 0 02/20/2023 Active apixaban 5 mg oral tablet (20 sources) Factor Xa Inhibitor Start: 07-08-2024 take 1 tablet by mouth in the morning, then take 1 tablet by mouth at bedtime apixaban (ELIQUIS) 5 mg tablet Indications: Other acute pulmonary embolism without acute cor pulmonale (CMS-HCC) , Acute deep vein thrombosis (DVT) of distal end of right lower extremity (CMS-HCC) Take 1 tablet (5 mg total) by mouth in the morning and 1 tablet (5 mg total) before bedtime. 180 tablet 1 07/08/2024 Active Start: 06-17-2024 End: 08-02-2024 take 2 tablets by mouth twice daily, then take 1 tablet by mouth twice daily apixaban (ELIQUIS DVT-PE TREAT 30D START) 5 mg (74 tabs) tablets,dose pack tablet Take 2 tablets by mouth twice daily for 7 days, then take 1 tablet twice daily 74 tablet 06/17/2024 08/02/2024 Discontinued Start: 06-17-2024 take 2 tablets by mo uth twice daily, then take 1 tablet by mouth twice daily apixaban (ELIQUIS DVT-PE TREAT 30D START) 5 mg (74 tabs) tablets,dose pack tablet Take 2 tablets by mouth twice daily for 7 days, then take 1 tablet twice daily 74 tablet 06/17/2024 Active ascorbic acid 250 mg oral tablet (20 sources) Vitamin C Start: 06-28-2024 ascorbic acid, vitamin C, (vitamin C) 250 mg tablet 250mg twice (in AM and PM) on Mondays, Wednesdays, and Fridays along with iron pills. 90 tablet 2 06/28/2024 Active Start: 05-08-2022 End: 08-20-2023 take 1 tablet by mouth in the morning ascorbic acid, vitamin C, (vitamin C) 250 mg tablet Take 1 tablet (250 mg total) by mouth in the morning. Take with iron.. 90 tablet 3 05/08/2022 08/20/2023 Discontinued azaTHIOprine 50 mg oral tablet (20 sources) Purine Antimetabolite Start: 09-13-2024 take 4 tablets by mouth in the morning azaTHIOprine (IMURAN) 50 mg tablet Indications: Crohn's disease of both small and large intestine with intestinal obstruction (CMS-HCC) Take 4 tablets (200 mg total) by mouth in the morning. 120 tablet 09/13/2024 Active Start: 06-28-2024 take 4 tablets by mo uth in the morning azaTHIOprine (IMURAN) 50 mg tablet Take 4 tablets (200 mg total) by mouth in the morning. 270 tablet 1 06/28/2024 Active Start: 09-07-2021 End: 06-28-2024 take 3 tablets by mouth in the morning azaTHIOprine (Imuran) 50 MG tablet TAKE 3 TABLETS BY MOUTH IN THE MORNING 05/06/2022 Active cholecalciferol 0.05 mg oral tablet (20 sources) Vitamin D Start: 06-28-2024 take 1 tablet by mouth in the morning cholecalciferol, vitamin D3, 2,000 units tablet Take 1 tablet (2,000 Units total) by mouth in the morning. 90 tablet 1 06/28/2024 Active Start: 06-15-2024 take 1 tablet by [...] morning. 90 each 3 10/01/2021 08/20/2023 Discontinued End: 10-18-2024 cholecalciferol (Vitamin D-3 ) 25 MCG (1000 UT) capsule 1,000 Units. 10/18/2024 Discontinued cyclobenzaprine hydrochloride 10 mg oral tablet (10 sources) Muscle Relaxant Start: 08-02-2024 take 1 tablet by mouth every eight hours as needed for muscle spasms cyclobenzaprine (FLEXERIL) 10 mg tablet Indications: Acute midline low back pain without sciatica Take 1 tablet (10 mg total) by mouth every 8 (eight) hours as needed for muscle spasms. 30 tablet 1 08/02/2024 Active 1 ml EPINEPHrine 1 mg/ml injection (1 source) alpha-Adrenergic Agonist, beta-Adrenergic Agonist, Catecholamine Start: 02-06-2023 End: 02-07-2023 EPINEPHrine (ADRENALIN) 1 mg/mL injection FOR ANAPHYLAXIS 0.3 mg ferric maltol (ACCRUFER) 30 mg capsule (9 sources) Start: 08-03-2024 take 1 capsule by mouth in the morning ferric maltol (ACCRUFER) 30 mg capsule Indications: Iron deficiency anemia, unspecified iron deficiency anemia type Take 30 mg by mouth in the morning and 30 mg before bedtime. 60 capsule 3 08/03/2024 Active ferrous sulfate 325 mg delayed release oral tablet (15 sources) Start: 06-28-2024 ferrous sulfate 325 (65 FE) mg EC tablet 325mg twice (in AM and PM) on Mondays, Wednesdays, and Fridays. Take with vitamin C. 30 tablet 5 06/28/2024 Active folic acid 1 mg oral tablet (20 sources) Start: 08-02-2021 End: 05-06-2024 take 1 tablet by mouth in the morning folic acid (Folvite) 1 MG tablet Take 1,000 mcg by mouth in the morning. 05/07/2022 Active 12 hr guaiFENesin 600 mg extended [...] as needed for nausea or vomiting. Active phenazopyridine hydrochloride 100 mg oral tablet (2 sources) Start: 07-15-2024 End: 07-18-2024 take 1 tablet by mouth three times daily as needed for muscle spasms phenazopyridine (Pyridium) 100 MG tablet Indications: 6 weeks follow-up Take 1 tablet (100 mg) by mouth 3 (three) times a day as needed for bladder spasms for up to 3 days 10 tablet 07/15/2024 07/18/2024 Active polysaccharide iron complex 391 mg oral capsule (14 sources) Start: 05-03-2024 End: 06-02-2024 take 1 [...] / HYDROcodone bitartrate 5 mg oral tablet (18 sources) Opioid Agonist Start: 04-20-2024 End: 10-18-2024 take 1 tablet by mouth every six hours for pain HYDROcodone-acetamino phen ([place]) 5-325 MG tablet Indications: Abdominal pain, unspecified abdominal location , Crohn's disease with complication, unspecified gastrointestinal tract location (HCC) Take 1 tablet by mouth every 6 (six) hours if needed for moderate pain or severe pain for up to 15 doses 15 tablet 04/20/2024 10/18/2024 Discontinued benzonatate 100 mg oral capsule (12 [...] morning. 30 tablet 2 08/20/2023 09/17/2023 Discontinued dexAMETHasone (DECADRON) 20 mg in sodium chloride 0.9 % (PVC) 50 mL IVPB (1 source) Start: 08-25-2024 End: 08-25-2024 20 mg, intravenous, at 208 mL/hr, Administer over 15 Minutes, Once, On Fri08/25/24 at 0900, For 1 dose, Prior to test dose. May alter blood glucose or insulin requirements. ferric carboxymaltose (INJECTAFER) 750 mg in sodium chloride 0.9 % 100 mL IVPB (1 source) Start: 02-06-2023 End: 02-06-2023 ferric carboxymaltose (INJECTAFER) 750 mg in sodium chloride 0.9 % 100 mL IVPB folic acid 0.4 mg / vitamin b12 1 mg sublingual tablet (20 sources) Vitamin B12 End: 10-18-2024 Cobalamin Combinations (B-12) 100-5000 MCG sublingual tablet B12 10/18/2024 Discontinued End: 08-20-2023 cyanocobalamin/folic acid (v itamin H95-bqigi acid) 1,000-400 mcg lozenge B12 08/20/2023 Discontinued inFLIXimab-axxq (AVSOLA) 5 mg/kg = 361 mg in sodium chloride 0.9 % (PVC) 250 mL IVPB (1 source) Start: 08-09-2024 End: 08-09-2024 361 mg (rounded from 360.5 m g = 5 mg/kg 72.1 kg), intravenous, Once, On Fri08/09/24 at 1115, For 1 dose, Infuse over [...] Administer using 0.2 - 1.2 micron filter. inFLIXimab-axxq (AVSOLA) 5 mg/kg = 400 mg in sodium chloride 0.9 % (PVC) 250 mL IVPB (1 source) Start: 09-22-2024 End: 09-22-2024 400 mg (rounded from 366 mg = 5 mg/kg 73.2 kg), intravenous, Once, On Fri09/22/24 at 1415, For 1 dose, Infuse over at least [...] Administer using 0.2 - 1.2 micron filter. inFLIXimab-axxq (AVSOLA) 5 mg/kg = 400 mg in sodium chloride 0.9 % 250 mL IVPB (4 sources) Start: 06-28-2024 End: 06-28-2024 400 mg (rounded from 367.5 m g = 5 mg/kg 73.5 kg), intravenous, Once, On Fri06/28/24 at 1330, For 1 dose, Infuse over [...] using 0.2 - 1.2 micron filter. Start: 05-24-2024 End: 05-24-2024 400 mg (rounded [...] Administer using 0.2 - 1.2 micron filter. iron dextran complex (INFED) 25 mg in sodium chloride 0.9 % (PVC) 50 mL IVPB (1 source) Start: 08-25-2024 End: 08-25-2024 25 mg, intravenous, at 101 mL/hr, Administer over 30 Minutes, Once, On Fri08/25/24 at 0915, For 1 dose, Test dose. Monitor patient for hypersensitivity reactions. AVOID the use of H1 antihistamines, such as diphenhydramine, as this may worsen hypersensitivity reactions. Have resuscitation equipment and medications available. iron dextran complex (INFED) 975 mg in sodium chloride 0.9 % (PVC) 500 mL IVPB (1 source) Start: 08-25-2024 End: 08-25-2024 975 mg, intravenous, at 520 mL/hr, Administer over 1 Hours, Once, On Fri08/25/24 at 1045, For 1 dose, Given 1 hour after test dose. A one hour infusion time can only be used for doses 1,000 mg or below. Monitor patient for hypersensitivity reactions. AVOID the use of H1 antihistamines, such as diphenhydramine, as this may worsen hypersensitivity reactions. Have resuscitation equipment and medications available. labetalol hydrochloride 100 mg oral tablet (8 sources) beta-Adrenergic Stephanie Start: 05-06-2024 End: 10-18-2024 labetalol (Normodyne) 100 MG tablet 05/06/2024 10/18/2024 Discontinued Start: 05-06-2024 End: 06-05-2024 take 1 tablet [...] for 30 days. 60 tablet 05/06/2024 06/05/2024 Suspended 1000 ml sodium chloride 9 mg/ml injection (14 sources) Start: 09-22-2024 End: 09-22-2024 take 25 mL intravenously every hour as needed 25 mL/hr, intravenous, Continuous PRN, When mainline IV needed., Starting on Fri09/22/24 at 1334, Match IVF to base solution of product being administered to ensure compatibility. Start: 08-25-2024 End: 08-25-2024 take 25 mL intravenously every hour as needed 25 mL/hr, intravenous, Continuous PRN, When mainline IV needed., Starting on Fri08/25/24 at 0859, Match IVF to base solution of product being administered to ensure compatibility. Start: 08-09-2024 End: 08-09-2024 take 25 mL intravenously every hour as needed 25 mL/hr, intravenous, Continuous PRN, When mainline IV needed., Starting on Fri08/09/24 at 1041, Match IVF to base solution of product being administered to ensure compatibility. Start: 06-28-2024 End: 06-28-2024 take 25 mL intravenously every hour as needed 25 mL/hr, intravenous, Continuous PRN, When mainline IV needed., Starting on Fri06/28/24 at 1250, Match IVF to base solution of product being administered to ensure compatibility. Start: 05-24-2024 End: 05-24-2024 take 25 mL [...] [Essential (primary) hypertension] Onset: 5 05-06-2024 Chronic Immunizations and screening [...] drug level monitoring] 02-03-2024 Episodic Other aftercare (2 sources) Surgical follow-up; Translations: [Encounter for follow-up examination after completed treatment for conditions other than malignant neoplasm] 06-14-2024 Episodic Other complications of (20 sources) Anemia in mother complicating , childbirth AND/OR puerperium; Translations: [Anemia complicating , unspecified trimester] Onset: 8 05-06-2024 Chronic Other complications of (1 source) Anemia complicating , unspecified trimester; Translations: [Anemia complicating , unspecified trimester] Onset: Chronic Other complications of (1 source) Headache; Translations: [Other specified related conditions, first trimester] 01-23-2024 Episodic Other complications of (2 sources) H/O: ; Translations: [Supervision of with other poor reproductive or obstetric history, unspecified trimester] 02-18-2024 Episodic Other connective tissue disease (1 source) Pain in leg, unspecified; Translations: [Pain in leg, unspecified] Onset: 5 Episodic Other connective tissue disease (1 source) Pain in lower limb Onset: 5 Episodic Other female genital disorders (1 source) Vaginal bleeding Onset: 5 Chronic Other female genital disorders (2 sources) Vaginal discharge; Translations: [Other specified noninflammatory disorders of vagina] 03-17-2024 Episodic Other gastrointestinal disorders (20 sources) Malabsorption - iron; Translations: [Intestinal malabsorption, unspecified] Onset: 1 08-28-2020 Chronic Other gastrointestinal disorders (2 sources) Intestinal malabsorption, unspecified; Translations: [Intestinal malabsorption, unspecified] Onset: 1 Chronic Other gastrointestinal disorders (2 sources) History of Crohns disease; Translations: [Personal history of other diseases of the digestive system] 05-26-2024 Episodic Other gastrointestinal disorders (18 sources) Personal history of other diseases of the digestive system; Translations: [Personal history of other diseases of digestive system] Onset: 5 06-28-2024 Episodic Other inflammatory condition of skin (20 sources) Scalp psoriasis; 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, unspecified] Onset: 9 12-14-2018 Chronic Other and delivery including normal (16 sources) ; Translations: [Encounter for supervision of normal , unspecified, unspecified trimester] 01-23-2024 Episodic Other screening for suspected conditions (not mental disorders or infectious disease) (9 sources) Encounter for screening for malignant neoplasm of cervix; Translations: [Patient encounter status] Onset: 3 Episodic Other upper respiratory infections (1 source) Sinusitis; Translations: [Chronic sinusitis, unspecified] 02-20-2023 Chronic Ovarian cyst (1 source) Unspecified ovarian cyst, left side; Translations: [Unspecified ovarian cyst, left side] Onset: 5 Episodic Phlebitis; thrombophlebitis and thromboembolism (2 sources) Acute deep venous thrombosis of right calf; Translations: [Acute embolism and thrombosis of unspecified deep veins of right distal lower extremity] Onset: 5 07-08-2024 Episodic Regional enteritis and ulcerative colitis (20 sources) [...] 05-06-2024 Episodic Residual codes; unclassified (2 sources) Gestation period, 27 weeks; Translations: [27 weeks gestation of ] 05-12-2024 Episodic Residual codes; unclassified (2 sources) Gestation period, 29 weeks; Translations: [29 weeks gestation of ] 05-26-2024 Episodic Residual codes; unclassified (2 sources) History of excision of small intestine; Translations: [Acquired absence of other specified parts of digestive tract] 06-14-2024 Episodic Residual codes; unclassified (1 source) H/O: severe pre-eclampsia; Translations: [Personal history of other complications of , childbirth and the puerperium] 06-21-2024 Episodic Residual codes; unclassified (7 sources) History of drug therapy; Translations: [Other specified postprocedural states] Onset: 5 08-11-2024 Episodic Residual codes; unclassified (1 source) Pain, unspecified; Translations: [Pain, unspecified] Onset: 5 Episodic Spondylosis; intervertebral disc disorders; other back problems (16 sources) Low back pain; Translations: [Lumbar pain] Onset: 5 08-02-2024 Episodic Unclassified (1 source) hospital discharge Onset: 5 Unclassified (2 sources) Low back pain, unspecified; Translations: [Low back pain, unspecified] Onset: 5 Unclassified (1 source) Er Follow-up Onset: 5 Unclassified (1 source) FMLA Onset: 4 Unclassified (2 sources) Outpatient Infusion Onset: 4 Unclassified (1 source) Constipation, Early Onset: 4 Unclassified (1 source) Post-op Onset: 5 Past or Other Problems Problem Classification Problem Date Documented Da te Episodic/Chronic Abdominal pain (20 sources) Abdominal pain; Translations: [Unspecified abdominal pain] Onset: 05-30-2024 Resolved: 06-28-2024 05-30-2024 Episodic Deficiency and other anemia (20 sources) Microcytic anemia; Translations: [Iron deficiency anemia, unspecified] Onset: 07-17-2018 07-17-2018 Episodic Deficiency and other anemia (20 sources) Anemia; Translations: [Anemia, unspecified] Onset: 07-02-2019 07-02-2019 Episodic Deficiency and other anemia (20 sources) Iron deficiency anemia; Translations: [Iron deficiency anemia, unspecified] Onset: 08-28-2020 08-28-2020 Episodic Deficiency and other anemia (3 sources) Iron deficiency anemia, unspecified; Translations: [Iron deficiency anemia, unspecified] Onset: 07-02-2019 Episodic E Codes: Fall (1 source) Fall (on) (from) unspecified stairs and steps, initial encounter; Translations: [Fall (on) (from) unspecified stairs and steps, initial encounter] Onset: 01-31-2024 Episodic Hypertension complicating ; childbirth and the puerperium (20 sources) Hypertension complicating ; Translations: [Unspecified maternal hypertension, second trimester] Onset: 05-06-2024 Resolved: 08-02-2024 05-06-2024 Chronic Intestinal obstruction without hernia (20 sources) Intestinal obstruction; Translations: [Unspecified intestinal obstruction, unspecified as to partial versus complete obstruction] Onset: 10-17-2017 Resolved: 08-29-2020 08-29-2020 Episodic Mood disorders (20 sources) Mood disorders Onset: 09-17-2023 Resolved: 08-02-2024 09-17-2023 Nonspecific chest pain (1 source) Chest pain, unspecified; Translations: [Chest pain, unspecified] Onset: 06-16-2024 Episodic Nutritional deficiencies (20 sources) Cobalamin deficiency; Translations: [Deficiency of other specified B group vitamins] Onset: 07-08-2019 07-08-2019 Episodic Other aftercare (1 source) Encounter for follow-up examination after completed treatment for conditions other than malignant neoplasm; Translations: [Encounter for follow-up examination after completed treatment for conditions other than malignant neoplasm] Onset: 06-14-2024 Episodic Other aftercare (1 source) Encounter for therapeutic drug level monitoring; Translations: [Encounter for therapeutic drug level monitoring] Onset: 10-31-2023 Episodic Other bone disease and musculoskeletal deformities (20 sources) Bone cyst of foot; Translations: [Other cyst of bone, unspecified ankle and foot] Onset: 11-11-2022 Resolved: 08-02-2024 11-11-2022 Episodic Other complications of (20 sources) [...] Translations: [Pain in right foot] Onset: 09-18-2022 Resolved: 08-02-2024 09-18-2022 Episodic Other connective tissue disease (1 [...] [Pain in joint, lower leg] Onset: 12-23-2018 Resolved: 08-02-2024 12-23-2018 Episodic Other upper respiratory disease (20 sources) Congestion of nasal sinus; Translations: [Nasal congestion] Onset: 12-21-2020 Resolved: 08-02-2024 12-21-2020 Episodic Other upper respiratory infections (20 sources) Sore throat symptom; Translations: [Acute pharyngitis, unspecified] Onset: 12-20-2019 Resolved: 05-08-2022 05-08-2022 Episodic Pulmonary heart disease (20 sources) Pulmonary embolism; Translations: [Other pulmonary embolism without acute cor pulmonale] Onset: 06-16-2024 06-16-2024 Episodic Residual codes; unclassified (20 sources) Difficulty sleeping ; Translations: [Sleep disorder, unspecified] Onset: 01-13-2019 01-13-2019 Episodic Residual codes; unclassified (1 source) Noncompliance with treatment; Translations: [Noncompliance] 12-01-2023 Episodic Residual codes; unclassified (2 sources) 26 weeks gestation of ; Translations: [26 weeks gestation of ] Onset: 05-06-2024 Episodic Residual codes; unclassified (1 source) 12 weeks gestation of ; Translations: [12 weeks gestation of ] Onset: 01-31-2024 Episodic Sprains and strains (12 sources) Low back strain; Translations: [Strain of muscle, fascia and tendon of lower back, initial encounter] Onset: 08-02-2024 Resolved: 08-11-2024 08-02-2024 Episodic Viral infection (20 sources) Disease caused by 2019-nCoV; Translations: [COVID-19] Onset: 01-22-2021 Resolved: 08-02-2024 01-22-2021 Episodic Results Test Name Value Interpretation Reference Range Facility BASIC METABOLIC PANELon 07-3 Anion gap [Moles/Vol] 5 mmol/L Normal 5-[facility] Comment on above: Performed By: #### F EPR, 6-4, CBCA #### [facility] ([id number]) [address] [place] [address] Calcium [Mass/Vol] 9.4 mg/dL Normal 8.5-10.5 [facility] Comment on above: Performed By: #### F EPR, 6-4, CBCA #### [facility] ([id number]) [address] [facility] [address] [place] [address] Chloride [Moles/Vol] 109 mmol/L Normal 98-109 [facility] Comment on above: Performed By: #### F EPR, 2275-, CBCA #### [facility] ([id number]) [address], [address] [address] CO2 [Moles/Vol] 25 mmol/L Normal 22-32 [facility] Comment on above: Performed By: #### F EPR, 2275-, CBCA #### [facility] ([id number]) [address] [address] Creatinine [Mass/Vol] 0.72 mg/dL Normal 0.40-1.00 [facility] Comment on above: Result Comment: METH OD TRACEABLE TO IDMS STANDARD Performed By: #### F EPR, 2275-, CBCA #### [facility] ([id number]) [address], [facility] [address] [place] [address] EGFR (CKD-EPI) NON-RACE DEPENDENT >^90 Normal >=60 [facility] Comment on above: Result Comment: eGFR not reported due to non-numeric value for Creatinine. Reported eGFR is based on the CKD-EPI 2021 equation that does not use a race coefficient. Performed By: #### F EPR, 6-4, CBCA #### [facility] ([id number]) [address] [address] [place] [address] Glucose [Mass/Vol] 108 mg/dL High 65-99 [facility] Comment on above: Performed By: #### F EPR, 2275-4, CBCA #### [facility] ([id number]) [address], [address] [place] [address] Potassium [Moles/Vol] 3.5 mmol/L Normal 3.5-5.0 [facility] Comment on above: Performed By: #### F EPR, 6-4, CBCA #### [facility] ([id number]) [address], [address] [place] [address] Sodium [Moles/Vol] 139 mmol/L Normal 134-146 [facility] Comment on above: Performed By: #### F EPR, 2275-4, CBCA #### [facility] ([id number]) [address], [address] [place] [address] Urea nitrogen [Mass/Vol] 9 mg/dL Normal 5-23 [facility] Comment on above: Performed By: #### F EPR, 2275-, CBCA #### [facility] ([id number]) [address], [address] [address] CBC WITH AUTO DIFFERENTIALon 09-08-2024 BASOPHILS ABSOLUTE COUNT (10*3/UL) BY AUTOMATED COUNT 0.0 10*3/uL Normal 0.0-0.2 [facility] Comment on above: Result Comment: This is an appended report. These results have been appended to a previously preliminary verified report. Performed By: #### F EPR, 2275-4, CBCA #### [facility] ([id number]) [address], [address] [address] BASOPHILS RELATIVE PERCENT BY AUTOMATED COUNT 0.8 % Normal [facility] Comment on above: Result Comment: This is an appended report. These results have been appended to a previously preliminary verified report. Performed By: #### F EPR, 2275-4, CBCA #### [facility] ([id number]) [address], [address] [place] [address] CELLAVISION ANISOCYTOSIS IN BLOOD BY LIGHT MICROSCOPY 2+ Normal [facility] Comment on above: Result Comment: This is an appended report. These results have been appended to a previously preliminary verified report. Performed By: #### F EPR, 6-4, CBCA #### [facility] ([id number]) [address], [address] [place] [address] CELLAVISION DIFFERENTIAL TYPE AUTOMATED DIFFERENTIAL Normal [facility] Comment on above: Result Comment: This is an appended report. These results have been appended to a previously preliminary verified report. Performed By: #### F EPR, 2275-, CBCA #### [facility] ([id number]) [address], [address] [place] [address] CELLAVISION RBC MORPHOLOGY Reviewed Normal [facility] Comment on above: Result Comment: This is an appended report. These results have been appended to a previously preliminary verified report. Performed By: #### F EPR, 2275-4, CBCA #### [facility] ([id number]) [address], [address] [place] [address] Eosinophils (Bld) [#/Vol] 0.1 10*3/uL Normal 0.0-0.4 [facility] Comment on above: Result Comment: This is an appended report. These results have been appended to a previously preliminary verified report. Performed By: #### F EPR, 6-4, CBCA #### [facility] ([id number]) [address], [address] [place] [address] EOSINOPHILS RELATIVE PERCENT BY AUTOMATED COUNT 1.3 % Normal [facility] Comment on above: Result Comment: This is an appended report. These results have been appended to a previously preliminary verified report. Performed By: #### F EPR, 6-4, CBCA #### [facility] ([id number]) [address], [address] [place] [address] Erythrocyte distribution width (RBC) [Ratio] 26.8 % High 11.5-15 [facility] Comment on above: Performed By: #### F EPR, 6-4, CBCA #### [facility] ([id number]) [address] [address] [place] [address] Hematocrit (Bld) [Volume fraction] 29.6 % Low 35-47 [facility] Comment on above: Performed By: #### F EPR, 2275-, CBCA #### [facility] ([id number]) [address] [address] [place] [address] Hemoglobin (Bld) [Mass/Vol] 9.5 g/dL Low 11.7-15.5 [facility] Comment on above: Performed By: #### F EPR, 2275-05, CBCA #### [facility] ([id number]) [address] [address] [place] [address] LYMPHOCYTES ABSOLUTE COUNT (10*3/UL) BY AUTOMATED COUNT 2.0 10*3/uL Normal 1.0-3.5 [facility] Comment on above: Result Comment: This is an appended report. These results have been appended to a previously preliminary verified report. Performed By: #### F EPR, 2275-05, CBCA #### [facility] ([id number]) [address] [address] [place] [address] LYMPHOCYTES RELATIVE PERCENT BY AUTOMATED COUNT 43.5 % Normal [facility] Comment on above: Result Comment: This is an appended report. These results have been appended to a previously preliminary verified report. Performed By: #### F EPR, 2275-, CBCA #### [facility] ([id number]) [address] [address] [place] [address] MCH (RBC) [Entitic mass] 26.0 pg Low 27-34 [facility] Comment on above: Performed By: #### F EPR, 2275-05, CBCA #### [facility] ([id number]) [address], [address] [place] [address] MCHC (RBC) [Mass/Vol] 32.2 g/dL Normal 32-36 [facility] Comment on above: Performed By: #### F EPR, 2275-05, CBCA #### [facility] ([id number]) [address], [address] [place] [address] MCV (RBC) [Entitic vol] 81 fL Normal 80-100 [facility] Comment on above: Performed By: #### F EPR, 2275-05, CBCA #### [facility] ([id number]) [address], [address] [address] MONOCYTES ABSOLUTE COUNT (10*3/UL) BY AUTOMATED COUNT 0.3 10*3/uL Normal 0.0-0.9 [facility] Comment on above: Result Comment: This is an appended report. These results have been appended to a previously preliminary verified report. Performed By: #### F EPR, 2275-05, CBCA #### [facility] ([id number]) [address], [address] [place] [address] MONOCYTES RELATIVE PERCENT BY AUTOMATED COUNT 6.5 % Normal [facility] Comment on above: Result Comment: This is an appended report. These results have been appended to a previously preliminary verified report. Performed By: #### F EPR, 2275-05, CBCA #### [facility] ([id number]) [address], [address] [place] [address] NEUTROPHILS ABSOLUTE COUNT BY AUTOMATED COUNT 2.2 10*3/uL Normal 1.5-6.6 [facility] Comment on above: Result Comment: This is an appended report. These results have been appended to a previously preliminary verified report. Performed By: #### F EPR, 2276-4, CBCA #### [facility] ([id number]) [address] [address] NEUTROPHILS RELATIVE PERCENT BY AUTOMATED COUNT 47.9 % Normal [facility] Comment on above: Result Comment: This is an appended report. These results have been appended to a previously preliminary verified report. Performed By: #### F EPR, 6-4, CBCA #### [facility] ([id number]) [address] [address] Platelet mean volume (Bld) [Entitic vol] 10.0 fL Normal 7-12 [facility] Comment on above: Performed By: #### F EPR, 2275-4, CBCA #### [facility] ([id number]) [address] [address] Platelets (Bld) [#/Vol] 246 10*3/uL Normal 150-450 [facility] Comment on above: Performed By: #### F EPR, 2275-4, CBCA #### [facility] ([id number]) [address] [address] [place] [address] RBC COUNT 3.66 X10E12/L Low 3.8-5.2 [facility] Comment on above: Performed By: #### F EPR, 6-4, CBCA #### [facility] ([id number]) [address] [address] WBC (Bld) [#/Vol] 4.7 10*3/uL Normal 4-11 [facility] Comment on above: Performed By: #### F EPR, 6-4, CBCA #### [facility] ([id number]) [address] [address] [address] ABDOMEN AND PELVIS W CONT on 09-08-2024 CT ABDOMEN AND PELVIS W CONT CT ABDOMEN AND PELVIS W CONT CT ABDOMEN AND PELVIS W CONT CLINICAL [...] Lucas Rob MD on 09/08/2024 5:30 AM Normal [facility] CT CTA CHESTon 09-08-[address] CTA CHEST History: LUQ pain worse with inspiration, hx [...] Angel Greene MD on 09/08/2024 6:52 AM Normal [facility] CT CTA CHEST CT CTA CHEST CT CHEST WITH CONTRAST (PE PROTOCOL) HISTORY: Left upper quadrant pain COMPARISON: 06/16/2024 PROCEDURE: Helical imaging from the lower neck through the upper abdomen was performed following the uncomplicated intravenous administration of 100 mL Omnipaque 350, according to the PE protocol. Sagittal and coronal MIP reformatted images were acquired from the axial data. FINDINGS: No acute central pulmonary embolism. Assessment of lobar, segmental, and subsegmental branches is nondiagnostic due to poor bolus opacification and respiratory motion artifact. Normal heart size. Please refer to separate report for abdominal findings. No pleural or pericardial effusions. The thoracic aorta is unremarkable. No enlarged thoracic lymph nodes. Visualized structures in the lower neck are unremarkable. Visualized chest wall structures are unremarkable. Lungs are clear. No acute osseous abnormalities or aggressive osseous lesions. IMPRESSION: * No acute central pulmonary embolism however nondiagnostic assessment of lobar, segmental, and subsegmental branches. All CT scans at this facility use dose modulation, iterative reconstruction, and/or weight based dosing when appropriate to reduce radiation dose to as low as reasonably achievable. Finalized by Lucas Rob MD on 09/08/2024 5:06 AM Normal [facility] LIPASEon 09-08-2024 Lipase [Catalytic activity/Vol] 37 U/L Normal 17-40 [facility] Comment on above: Performed By: #### L IPA #### [facility] ([facility]) [address] [place] [address]. [place] [address] VIR LIVER PANELon 09-08-2024 Albumin [Mass/Vol] 4.2 g/dL Normal 3.2-5.3 [facility] Comment on above: Performed By: #### F EPR, 2275-05, CBCA #### [facility] ([id number]) [address], [address] [place] [address] ALP [Catalytic activity/Vol] 34 U/L Low 39-130 [facility] Comment on above: Performed By: #### F EPR, 2275-05, CBCA #### [facility] ([id number]) [address], [address] [place] [address] ALT [Catalytic activity/Vol] 15 U/L Normal <=31 [facility] Comment on above: Performed By: #### F EPR, 2275-05, CBCA #### [facility] ([id number]) [address], [address] [place] [address] AST [Catalytic activity/Vol] 18 U/L Normal <=41 [facility] Comment on above: Performed By: #### F EPR, 2275-05, CBCA #### [facility] ([id number]) [address], [address] [place] [address] Bilirubin [Mass/Vol] 0.3 mg/dL Normal 0.3-1.2 [facility] Comment on above: Performed By: #### F EPR, 2275-05, CBCA #### [facility] ([id number]) [address], [address] [place] [address] Bilirubin.indirect [Mass/Vol] mg/dL Normal <=0.4 [facility] Comment on above: Performed By: #### F EPR, 2275-05, CBCA #### [facility] ([id number]) [address], [address] [place] [address] Protein [Mass/Vol] 7.5 g/dL Normal 6.0-8.0 [facility] Comment on above: Performed By: #### F EPR, 2276-4, CBCA #### [facility] ([id number]) [address] [facility] [facility] [place] [address] POCT NURSING URINE MACROSCOP IC UAon 09-08-2024 BILIRUBIN KAY Negative Normal Negative [facility] Comment on above: Performed By: #### N UM #### [facility] ([address] [address] VIR BLOOD/HGB KAY Moderate Abnormal Negative [facility] Comment on above: Performed By: #### N UM #### [facility] ([address] [place] [address] VIR GLUCOSE KAY Negative Normal Negative [facility] Comment on above: Performed By: #### N UM #### [facility] ([address] [place] [address] VIR KETONES KAY Trace Abnormal Negative [facility] Comment on above: Performed By: #### N UM #### [facility] ([address] [place] [address] VIR LEUKOCYTE ESTERASE KAY Negative Normal Negative [facility] Comment on above: Performed By: #### N UM #### [facility] ([address] [place] [address] VIR NITRITE KAY Negative Normal Negative [facility] Comment on above: Performed By: #### N UM #### [facility] ([address] [place] [address] VIR PH KAY 6.0 Normal 5.0, 6.0, 6.5, 7.0, 7.5, 8.0, 8.5, 5.5 [facility] Comment on above: Performed By: #### N UM #### [facility] ([address] [place] [address] VIR PROTEIN KAY Negative Normal Negative [facility] Comment on above: Performed By: #### N UM #### [facility] ([address] [address] VIR SPECIFIC GRAVITY KAY >=1.030 Abnormal 1.010, 1.015, 1.020, 1.025 [facility] Comment on above: Performed By: #### N UM #### [facility] ([address] [address] VIR UROBILINOGEN KAY 0.2 E.U./dL Normal [facility] Comment on above: Performed By: #### N UM #### [facility] ([address] [address] VIR POCT , URINE (NUCG) on 09-08-2024 Beta HCG ( test) Ql (U) Negative Normal Negative, Indeterminate [facility] Comment on above: Performed By: #### N UCG #### [facility] ([address] [address] VIR TROP I, HIGH SENSITIVITY 1 H OURon 09-08-2024 TROPONIN I, HIGH SENSITIVITY <^2 Normal <16 [facility] Comment on above: Performed By: #### F EPR, 6-4, CBCA #### [facility] ([id number]) [address] [place] [address] TROPONIN I, HIGH SENSITIVITY 0 HOURon 09-08-2024 TROPONIN I, HIGH SENSITIVITY <^2 Normal <16 [facility] Comment on above: Performed By: #### F EPR, 2276-4, CBCA #### [facility] ([id number]) [address] [facility] [facility], [address] [place] [address] BASIC METABOLIC PANELon 06-2 Anion gap [Moles/Vol] 7 mmol/L Normal 5-15 [facility] Comment on above: Performed By: #### B MP #### [facility] ([address] [place] [address] VIR Calcium [Mass/Vol] 8.9 mg/dL Normal 8.5-10.5 [facility] Comment on above: Performed By: #### B MP #### [facility] ([address] [place] [address] VIR Chloride [Moles/Vol] 108 mmol/L Normal 98-109 [facility] Comment on above: Performed By: #### B MP #### [facility] ([address] [place] [address] VIR CO2 [Moles/Vol] 25 mmol/L Normal 22-32 [facility] Comment on above: Performed By: #### B MP #### [facility] ([address] [place] [address] VIR Creatinine [Mass/Vol] 0.69 mg/dL Normal 0.40-1.00 [facility] Comment on above: Result Comment: METH OD TRACEABLE TO IDMS STANDARD Performed By: #### B MP #### [facility] ([address] [place] [address] VIR EGFR (CKD-EPI) NON-RACE DEPENDENT >^90 Normal >=60 [facility] Comment on above: Result Comment: eGFR not reported due to non-numeric value for Creatinine. Reported eGFR is based on the CKD-EPI 2021 equation that does not use a race coefficient. Performed By: #### B MP #### [facility] ([address] [place] [address] VIR Glucose [Mass/Vol] 121 mg/dL High 65-99 [facility] Comment on above: Performed By: #### B MP #### [facility] ([address] [place] [address] VIR Potassium [Moles/Vol] 3.2 mmol/L Low 3.5-5.0 [facility] Comment on above: Performed By: #### B MP #### [facility] ([address] [place] [address] VIR Sodium [Moles/Vol] 140 mmol/L Normal 134-146 [facility] Comment on above: Performed By: #### B MP #### [facility] ([address] [place] [address] VIR Urea nitrogen [Mass/Vol] 10 mg/dL Normal 5-23 [facility] Comment on above: Performed By: #### B MP #### [facility] ([address] [address] VIR CBC WITH AUTO DIFFERENTIALon 08-02-2024 BASOPHILS ABSOLUTE COUNT (10*3/UL) BY AUTOMATED COUNT 0.0 10*3/uL Normal 0.0-0.2 [facility] Comment on above: Performed By: #### C BCA #### [facility] ([address] [address] VIR BASOPHILS RELATIVE PERCENT BY AUTOMATED COUNT 0.9 % Normal [facility] Comment on above: Performed By: #### C BCA #### [facility] ([address] [address] VIR CELLAVISION DIFFERENTIAL TYPE AUTOMATED DIFFERENTIAL Normal [facility] Comment on above: Performed By: #### C BCA #### [facility] ([address] [address] VIR Eosinophils (Bld) [#/Vol] 0.1 10*3/uL Normal 0.0-0.4 [facility] Comment on above: Performed By: #### C BCA #### [facility] ([address] [place] [address] VIR EOSINOPHILS RELATIVE PERCENT BY AUTOMATED COUNT 1.3 % Normal [facility] Comment on above: Performed By: #### C BCA #### [facility] ([address] [address] VIR Erythrocyte distribution width (RBC) [Ratio] 19.5 % High 11.5-15 [facility] Comment on above: Performed By: #### C BCA #### [facility] ([address] [address] VIR Hematocrit (Bld) [Volume fraction] 23.4 % Low 35-47 [facility] Comment on above: Performed By: #### C BCA #### [facility] ([address] [address] VIR Hemoglobin (Bld) [Mass/Vol] 7.5 g/dL Low 11.7-15.5 [facility] Comment on above: Performed By: #### C BCA #### [facility] ([address] [address] VIR LYMPHOCYTES ABSOLUTE COUNT (10*3/UL) BY AUTOMATED COUNT 1.9 10*3/uL Normal 1.0-3.5 [facility] Comment on above: Performed By: #### C BCA #### [facility] ([address] [address] VIR LYMPHOCYTES RELATIVE PERCENT BY AUTOMATED COUNT 46.9 % Normal [facility] Comment on above: Performed By: #### C BCA #### [facility] ([address] [address] VIR MCH (RBC) [Entitic mass] 26.2 pg Low 27-34 [facility] Comment on above: Performed By: #### C BCA #### [facility] ([address] [address] VIR MCHC (RBC) [Mass/Vol] 32.2 g/dL Normal 32-36 [facility] Comment on above: Performed By: #### C BCA #### [facility] ([address] [address] VIR MCV (RBC) [Entitic vol] 81 fL Normal 80-100 [facility] Comment on above: Performed By: #### C BCA #### [facility] ([address] [address] VIR MONOCYTES ABSOLUTE COUNT (10*3/UL) BY AUTOMATED COUNT 0.3 10*3/uL Normal 0.0-0.9 [facility] Comment on above: Performed By: #### C BCA #### [facility] ([address] [address] VIR MONOCYTES RELATIVE PERCENT BY AUTOMATED COUNT 7.3 % Normal [facility] Comment on above: Performed By: #### C BCA #### [facility] ([address] [address] VIR NEUTROPHILS ABSOLUTE COUNT BY AUTOMATED COUNT 1.8 10*3/uL Normal 1.5-6.6 [facility] Comment on above: Performed By: #### C BCA #### [facility] ([address] [address] VIR NEUTROPHILS RELATIVE PERCENT BY AUTOMATED COUNT 43.6 % Normal [facility] Comment on above: Performed By: #### C BCA #### [facility] ([address] [address] VIR Platelet mean volume (Bld) [Entitic vol] 9.4 fL Normal 7-12 [facility] Comment on above: Performed By: #### C BCA #### [facility] ([address] [address] VIR Platelets (Bld) [#/Vol] 286 10*3/uL Normal 150-450 [facility] Comment on above: Performed By: #### C BCA #### [facility] ([address] [place] [address] VIR RBC COUNT 2.88 X10E12/L Low 3.8-5.2 [facility] Comment on above: Performed By: #### C BCA #### [facility] ([address] [place] [address] VIR WBC (Bld) [#/Vol] 4.1 10*3/uL Normal 4-11 [facility] Comment on above: Performed By: #### C BCA #### [facility] ([address] [place] [address] VIR D-DIMERon 08-02-2024 D DIMER <^150 Normal 1-255 [facility] Comment on above: Result Comment: Resu lts <255 ng/mL DDU: The presensence of a VTE can safely be excluded with a negative D-Dimer result and Wells score. A negative result doesn't exclude the possibility of DIC. The test should be repeated along with other diagnostic tests if the patient's symptoms persist or worsen. Performed By: #### D DMR #### [facility] ([address] [place] [address] VIR Urinalysis macro (dipstick) panel (U)on 07-15-2024 Bilirubin, UA Negative Negative - 4(70) +++ mg/dL [facility] Blood, UA Positive Negative - 50 Enrrique/mcL [facility] Comment on above: small Clarity, UA Clear [facility] Color, UA Yellow [facility] Glucose, UA Negative Negative - 1999(110) ++++ mg/dL [facility] Interpretation and review of laboratory results Abnormal [facility] Ketones, UA Negative Negative - 160(16) ++++ mg/dL [facility] Leukocytes, UA Negative Negative - 500+++ Cam/mcL [facility] Nitrite, UA Negative Negative - Positive [facility] pH, UA 6 5 - 9 [facility] Protein, UA Negative Negative - 1999(20) ++++ mg/dL [facility] Spec Grav, UA 1.03 1 - 1.03 [facility] Urobilinogen, UA 0.2 0.2 - 12 mg/dL [facility] CBC WITH AUTO DIFFERENTIALon 07-03-2024 BASOPHILS ABSOLUTE COUNT (10*3/UL) BY AUTOMATED COUNT 0.0 10*3/uL Normal 0.0-0.2 [facility] Comment on above: Performed By: #### C BCA ####[facility] ([facility])[address] [facility] [address] [address] VIR BASOPHILS RELATIVE PERCENT BY AUTOMATED COUNT 0.7 % Normal [facility] Comment on above: Performed By: #### C BCA ####[facility] ([facility])[address], [place] [address] VIR Eosinophils (Bld) [#/Vol] 0.1 10*3/uL Normal 0.0-0.4 [facility] Comment on above: Performed By: #### C BCA ####[facility] ([facility])[address] [address] VIR EOSINOPHILS RELATIVE PERCENT BY AUTOMATED COUNT 1.6 % Normal [facility] Comment on above: Performed By: #### C BCA ####[facility] ([facility])[address] [place] [address] VIR Erythrocyte distribution width (RBC) [Ratio] 18.4 % High 11.5-15 [facility] Comment on above: Performed By: #### C BCA ####[facility] ([facility])[address] [address] VIR Hematocrit (Bld) [Volume fraction] 26.7 % Low 35-47 [facility] Comment on above: Performed By: #### C BCA ####[facility] ([facility])[address] [place] [address] VIR Hemoglobin (Bld) [Mass/Vol] 8.7 g/dL Low 11.7-15.5 [facility] Comment on above: Performed By: #### C BCA ####[facility] ([facility])[address], [place] [address] VIR LYMPHOCYTES ABSOLUTE COUNT (10*3/UL) BY AUTOMATED COUNT 1.8 10*3/uL Normal 1.0-3.5 [facility] Comment on above: Performed By: #### C BCA ####[facility] ([facility])[address], [place] [address] VIR LYMPHOCYTES RELATIVE PERCENT BY AUTOMATED COUNT 44.4 % Normal [facility] Comment on above: Performed By: #### C BCA ####[facility] ([facility])[address], [place] [address] VIR MCH (RBC) [Entitic mass] 28.2 pg Normal 27-34 [facility] Comment on above: Performed By: #### C BCA ####[facility] ([facility])[address], [place] [address] VIR MCHC (RBC) [Mass/Vol] 32.4 g/dL Normal 32-36 [facility] Comment on above: Performed By: #### C BCA ####[facility] ([facility])[address], [place] [address] VIR MCV (RBC) [Entitic vol] 87.0 fL Normal 80-100 [facility] Comment on above: Performed By: #### C BCA ####[facility] ([facility])[address], [place] [address] VIR MONOCYTES ABSOLUTE COUNT (10*3/UL) BY AUTOMATED COUNT 0.2 10*3/uL Normal 0.0-0.9 [facility] Comment on above: Performed By: #### C BCA ####[facility] ([facility])[address], [place] [address] VIR MONOCYTES RELATIVE PERCENT BY AUTOMATED COUNT 5.0 % Normal [facility] Comment on above: Performed By: #### C BCA ####[facility] ([facility])[address], [place] [address] VIR NEUTROPHILS ABSOLUTE COUNT BY AUTOMATED COUNT 2.0 10*3/uL Normal 1.5-6.6 [facility] Comment on above: Performed By: #### C BCA ####[facility] ([facility])[address], [place] [address] VIR NEUTROPHILS RELATIVE PERCENT BY AUTOMATED COUNT 48.3 % Normal [facility] Comment on above: Performed By: #### C BCA ####[facility] ([facility])[address], [place] [address] VIR Platelet mean volume (Bld) [Entitic vol] 9.5 fL Normal 7-12 [facility] Comment on above: Performed By: #### C BCA ####[facility] ([facility])[address], [place] [address] VIR Platelets (Bld) [#/Vol] 202 10*3/uL Normal 150-450 [facility] Comment on above: Performed By: #### C BCA ####[facility] ([facility])[address], [place] [address] VIR RBC COUNT 3.07 X10E12/L Low 3.8-5.2 [facility] Comment on above: Performed By: #### C BCA ####[facility] ([facility])[address], [place] [address] VIR WBC (Bld) [#/Vol] 4.1 10*3/uL Normal 4-11 [facility] Comment on above: Performed By: #### C BCA ####[facility] ([facility])[address], [place] [address] VIR COMPREHENSIVE METABOLIC PANE Santy 07-03-2024 Albumin [Mass/Vol] 4.2 g/dL Normal 3.2-5.3 [facility] Comment on above: Performed By: #### C MP ####[facility] ([facility])[address], [place] [address] VIR ALP [Catalytic activity/Vol] 33 U/L Low 39-130 [facility] Comment on above: Performed By: #### C MP ####[facility] ([facility])[address], [place] [address] VIR ALT [Catalytic activity/Vol] 9 U/L Normal <=31 [facility] Comment on above: Performed By: #### C MP ####[facility] ([facility])[address], [place] [address] VIR Anion gap [Moles/Vol] 8 mmol/L Normal 5-15 [facility] Comment on above: Performed By: #### C MP ####[facility] ([facility])[address], [place] [address] VIR AST [Catalytic activity/Vol] 17 U/L Normal <=41 [facility] Comment on above: Performed By: #### C MP ####[facility] ([facility])[address], [place] [address] VIR Bilirubin [Mass/Vol] 0.4 mg/dL Normal 0.3-1.2 [facility] Comment on above: Performed By: #### C MP ####[facility] ([facility])[address], [place] [address] VIR Calcium [Mass/Vol] 9.4 mg/dL Normal 8.5-10.5 [facility] Comment on above: Performed By: #### C MP ####[facility] ([facility])[address], [place] [address] VIR Chloride [Moles/Vol] 105 mmol/L Normal 98-109 [facility] Comment on above: Performed By: #### C MP ####[facility] ([facility])[address], [place] [address] VIR CO2 [Moles/Vol] 29 mmol/L Normal 22-32 [facility] Comment on above: Performed By: #### C MP ####[facility] ([facility])[address], [place] [address] VIR Creatinine [Mass/Vol] 0.64 mg/dL Normal 0.40-1.00 [facility] Comment on above: Result Comment: METH OD TRACEABLE TO IDMS STANDARD Performed By: #### C MP ####[facility] ([facility])[address], [place] [address] VIR EGFR (CKD-EPI) NON-RACE DEPENDENT >^90 Normal >=60 [facility] Comment on above: Result Comment: Repo rted eGFR is based on theCKD-EPI 2020 equation that doesnot use a race coefficient. Performed By: #### C MP ####[facility] ([facility])[address], [place] [address] VIR Glucose [Mass/Vol] 106 mg/dL High 65-99 [facility] Comment on above: Performed By: #### C MP ####[facility] ([facility])[address], [place] [address] VIR Potassium [Moles/Vol] 3.6 mmol/L Normal 3.5-5.0 [facility] Comment on above: Performed By: #### C MP ####[facility] ([facility])[address], [place] [address] VIR Protein [Mass/Vol] 7.0 g/dL Normal 6.0-8.0 [facility] Comment on above: Performed By: #### C MP ####[facility] ([facility])[address], [place] [address] VIR Sodium [Moles/Vol] 142 mmol/L Normal 134-146 [facility] Comment on above: Performed By: #### C MP ####[facility] ([facility])[address], [place] [address] VIR Urea nitrogen [Mass/Vol] 7 mg/dL Normal 5-23 [facility] Comment on above: Performed By: #### C MP ####[facility] ([facility])[address], [place] [address] VIR LDHon 07-03-2024 LDH 194 U/L Normal 100-235 [facility] Comment on above: Performed By: #### L DH ####[facility] ([facility])[address] [place] [address] VIR URIC ACIDon 07-03-2024 Urate [Mass/Vol] 4.3 mg/dL Normal 2.6-7.2 [facility] Comment on above: Performed By: #### U GEOFFREY ####[facility] ([facility])[address] [address] VIR INFLIXIMAB QUANT W/REFLEXon 06-28-2024 INFLIXIMAB QUANT W/REFLEX SEE COMMENTS Normal [facility] Comment on above: Result Comment: Test Result Flag Unit RefValue Infliximab QN with Reflex to Ab, S Infliximab, S 8.1 mcg/mL REFERENCE VALUE Limit of Quantitation = 1.0 mcg/mL Interpretation SEE COMMENTS For clinical assessment of response to therapy, infliximab should be measured at trough. When infliximab trough concentrations are greater than 5.0 mcg/mL, clinically relevant [id number] are unlikely and reflex testing will not be performed. ADDITIONAL INFORMATION This test was developed and its performance characteristics determined by [facility] in a manner consistent with CLIA requirements. This test has not been cleared or approved by the U.S. Food and Drug Administration. Test Performed by: [facility] [address] [place] [address] Rail Car Welder: Celi Fernandez Ph.D.; CLIA# [id number] Performed By: #### I NFXR ####[facility] ([facility])[address] [place] [address] VIR COMPREHENSIVE METABOLIC PANE Santy 06-18-2024 Albumin [Mass/Vol] 3.4 g/dL Normal 3.2-5.3 [facility] Comment on above: Performed By: #### C MP ####[facility] ([facility])[address], [place] [address] VIR ALP [Catalytic activity/Vol] 39 U/L Normal 39-130 [facility] Comment on above: Performed By: #### C MP ####[facility] ([facility])[address], [place] [address] VIR ALT [Catalytic activity/Vol] 17 U/L Normal <=31 [facility] Comment on above: Performed By: #### C MP ####[facility] ([facility])[address], [place] [address] VIR Anion gap [Moles/Vol] 10 mmol/L Normal 5-15 [facility] Comment on above: Performed By: #### C MP ####[facility] ([facility])[address], [place] [address] VIR AST [Catalytic activity/Vol] 14 U/L Normal <=41 [facility] Comment on above: Performed By: #### C MP ####[facility] ([facility])[address], [place] [address] VIR Bilirubin [Mass/Vol] 0.3 mg/dL Normal 0.3-1.2 [facility] Comment on above: Performed By: #### C MP ####[facility] ([facility])[address], [place] [address] VIR Calcium [Mass/Vol] 8.8 mg/dL Normal 8.5-10.5 [facility] Comment on above: Performed By: #### C MP ####[facility] ([facility])[address], [place] [address] VIR Chloride [Moles/Vol] 107 mmol/L Normal 98-109 [facility] Comment on above: Performed By: #### C MP ####[facility] ([facility])[address], [place] [address] VIR CO2 [Moles/Vol] 27 mmol/L Normal 22-32 [facility] Comment on above: Performed By: #### C MP ####[facility] ([facility])[address], [place] [address] VIR Creatinine [Mass/Vol] 0.51 mg/dL Normal 0.40-1.00 [facility] Comment on above: Result Comment: METH OD TRACEABLE TO IDMS STANDARD Performed By: #### C MP ####[facility] ([facility])[address], [place] [address] VIR EGFR (CKD-EPI) NON-RACE DEPENDENT >^90 Normal >=60 [facility] Comment on above: Result Comment: Repo rted eGFR is based on theCKD-EPI 2020 equation that doesnot use a race coefficient. Performed By: #### C MP ####[facility] ([facility])[address], [place] [address] VIR Glucose [Mass/Vol] 99 mg/dL Normal 65-99 [facility] Comment on above: Performed By: #### C MP ####[facility] ([facility])[address], [place] [address] VIR Potassium [Moles/Vol] 3.9 mmol/L Normal 3.5-5.0 [facility] Comment on above: Performed By: #### C MP ####[facility] ([facility])[address], [place] [address] VIR Protein [Mass/Vol] 6.3 g/dL Normal 6.0-8.0 [facility] Comment on above: Performed By: #### C MP ####[facility] ([facility])[address], [place] [address] VIR Sodium [Moles/Vol] 144 mmol/L Normal 134-146 [facility] Comment on above: Performed By: #### C MP ####[facility] ([facility])[address], [place] [address] VIR Urea nitrogen [Mass/Vol] 5 mg/dL Normal 5-23 [facility] Comment on above: Performed By: #### C MP ####[facility] ([facility])[address] [place] [address] VIR HEMOGLOBINon 06-18-2024 Hemoglobin (Bld) [Mass/Vol] 9.3 g/dL Low 11.7-15.5 [facility] Comment on above: Order Comment: Disco ntinue Hemoglobin after Heparin is stopped. Performed By: #### H GB ####[facility] ([facility])[address] [address] VIR HEPARIN ANTI XA, UNFRACTIONA TEDon 06-18-2024 ANTI XA UFH 0.36 IU/mL Normal 0.30-0.70 [facility] Comment on above: Result Comment: Opti mal time for testing is 6 hrs post dosageThis test is specific for monitoring patients on UFH, and is not recommended for use with other Anti-Xa medications. Performed By: #### U FHXA ####[facility] ([facility])[address], [place] [address] VIR PLATELET COUNTon 06-18-2024 Platelet mean volume (Bld) [Entitic vol] 9.8 fL Normal 7-12 [facility] Comment on above: Order Comment: Disco ntinue platelets after Heparin is stopped. Performed By: #### P LTCT ####[facility] ([facility])[address], [place] [address] VIR Platelets (Bld) [#/Vol] 345 10*3/uL Normal 150-450 [facility] Comment on above: Order Comment: Disco ntinue platelets after Heparin is stopped. Performed By: #### P LTCT ####[facility] ([facility])[address] [place] [address] VIR APTTon 06-17-2024 aPTT Coag (Bld) [Time] 31 s Normal 26-37 [facility] Comment on above: Performed By: #### P TT ####[facility] ([facility])[address] [place] [address] VIR COMPREHENSIVE METABOLIC PANE Santy 06-17-2024 Albumin [Mass/Vol] 3.7 g/dL Normal 3.2-5.3 [facility] Comment on above: Performed By: #### C MP ####[facility] ([facility])[address], [place] [address] VIR ALP [Catalytic activity/Vol] 43 U/L Normal 39-130 [facility] Comment on above: Performed By: #### C MP ####[facility] ([facility])[address], [place] [address] VIR ALT [Catalytic activity/Vol] 18 U/L Normal <=31 [facility] Comment on above: Performed By: #### C MP ####[facility] ([facility])[address], [place] [address] VIR Anion gap [Moles/Vol] 9 mmol/L Normal 5-15 [facility] Comment on above: Performed By: #### C MP ####[facility] ([facility])[address], [place] [address] VIR AST [Catalytic activity/Vol] 20 U/L Normal <=41 [facility] Comment on above: Performed By: #### C MP ####[facility] ([facility])[address], [place] [address] VIR Bilirubin [Mass/Vol] 0.4 mg/dL Normal 0.3-1.2 [facility] Comment on above: Performed By: #### C MP ####[facility] ([facility])[address], [place] [address] VIR Calcium [Mass/Vol] 8.9 mg/dL Normal 8.5-10.5 [facility] Comment on above: Performed By: #### C MP ####[facility] ([facility])[address], [place] [address] VIR Chloride [Moles/Vol] 105 mmol/L Normal 98-109 [facility] Comment on above: Performed By: #### C MP ####[facility] ([facility])[address], [place] [address] VIR CO2 [Moles/Vol] 26 mmol/L Normal 22-32 [facility] Comment on above: Performed By: #### C MP ####[facility] ([facility])[address], [place] [address] VIR Creatinine [Mass/Vol] 0.52 mg/dL Normal 0.40-1.00 [facility] Comment on above: Result Comment: METH OD TRACEABLE TO IDMS STANDARD Performed By: #### C MP ####[facility] ([facility])[address], [place] [address] VIR EGFR (CKD-EPI) NON-RACE DEPENDENT >^90 Normal >=60 [facility] Comment on above: Result Comment: Repo rted eGFR is based on theCKD-EPI 2020 equation that doesnot use a race coefficient. Performed By: #### C MP ####[facility] ([facility])[address], [place] [address] VIR Glucose [Mass/Vol] 108 mg/dL High 65-99 [facility] Comment on above: Performed By: #### C MP ####[facility] ([facility])[address], [place] [address] VIR Potassium [Moles/Vol] 3.6 mmol/L Normal 3.5-5.0 [facility] Comment on above: Performed By: #### C MP ####[facility] ([facility])[address], [place] [address] VIR Protein [Mass/Vol] 6.6 g/dL Normal 6.0-8.0 [facility] Comment on above: Performed By: #### C MP ####[facility] ([facility])[address], [place] [address] VIR Sodium [Moles/Vol] 140 mmol/L Normal 134-146 [facility] Comment on above: Performed By: #### C MP ####[facility] ([facility])[address], [place] [address] VIR Urea nitrogen [Mass/Vol] 6 mg/dL Normal 5-23 [facility] Comment on above: Performed By: #### C MP ####[facility] ([facility])[address], [place] [address] VIR Albumin [Mass/Vol] 3.9 g/dL Normal 3.2-5.3 [facility] Comment on above: Performed By: #### C MP ####[facility] ([facility])[address], [place] [address] VIR ALP [Catalytic activity/Vol] 45 U/L Normal 39-130 [facility] Comment on above: Performed By: #### C MP ####[facility] ([facility])[address], [place] [address] VIR ALT [Catalytic activity/Vol] 19 U/L Normal <=31 [facility] Comment on above: Performed By: #### C MP ####[facility] ([facility])[address], [place] [address] VIR Anion gap [Moles/Vol] 12 mmol/L Normal 5-15 [facility] Comment on above: Performed By: #### C MP ####[facility] ([facility])[address], [place] [address] VIR AST [Catalytic activity/Vol] 18 U/L Normal <=41 [facility] Comment on above: Performed By: #### C MP ####[facility] ([facility])[address], [place] [address] VIR Bilirubin [Mass/Vol] 0.4 mg/dL Normal 0.3-1.2 [facility] Comment on above: Performed By: #### C MP ####[facility] ([facility])[address], [place] [address] VIR Calcium [Mass/Vol] 9.2 mg/dL Normal 8.5-10.5 [facility] Comment on above: Performed By: #### C MP ####[facility] ([facility])[address], [place] [address] VIR Chloride [Moles/Vol] 104 mmol/L Normal 98-109 [facility] Comment on above: Performed By: #### C MP ####[facility] ([facility])[address], [place] [address] VIR CO2 [Moles/Vol] 25 mmol/L Normal 22-32 [facility] Comment on above: Performed By: #### C MP ####[facility] ([facility])[address], [place] [address] VIR Creatinine [Mass/Vol] 0.59 mg/dL Normal 0.40-1.00 [facility] Comment on above: Result Comment: METH OD TRACEABLE TO IDMS STANDARD Performed By: #### C MP ####[facility] ([facility])[address], [place] [address] VIR EGFR (CKD-EPI) NON-RACE DEPENDENT >^90 Normal >=60 [facility] Comment on above: Result Comment: Repo rted eGFR is based on theCKD-EPI 2020 equation that doesnot use a race coefficient. Performed By: #### C MP ####[facility] ([facility])[address], [place] [address] VIR Glucose [Mass/Vol] 127 mg/dL High 65-99 [facility] Comment on above: Performed By: #### C MP ####[facility] ([facility])[address], [place] [address] VIR Potassium [Moles/Vol] 3.5 mmol/L Normal 3.5-5.0 [facility] Comment on above: Performed By: #### C MP ####[facility] ([facility])[address], [place] [address] VIR Protein [Mass/Vol] 7.0 g/dL Normal 6.0-8.0 [facility] Comment on above: Performed By: #### C MP ####[facility] ([facility])[address], [place] [address] VIR Sodium [Moles/Vol] 141 mmol/L Normal 134-146 [facility] Comment on above: Performed By: #### C MP ####[facility] ([facility])[address], [place] [address] VIR Urea nitrogen [Mass/Vol] 6 mg/dL Normal 5-23 [facility] Comment on above: Performed By: #### C MP ####[facility] ([facility])[address], [place] [address] VIR HEMOGLOBINon 06-17-2024 Hemoglobin (Bld) [Mass/Vol] 9.3 g/dL Low 11.7-15.5 [facility] Comment on above: Order Comment: Disco ntinue Hemoglobin after Heparin is stopped. Performed By: #### H GB ####[facility] ([facility])[address] [facility] [address], [place] [address] VIR Hemoglobin (Bld) [Mass/Vol] 10.0 g/dL Low 11.7-15.5 [facility] Comment on above: Performed By: #### H GB ####[facility] ([facility])[address] [address] VIR HEPARIN ANTI XA, UNFRACTIONA TEDon 06-17-2024 ANTI XA UFH 0.32 IU/mL Normal 0.30-0.70 [facility] Comment on above: Result Comment: Opti mal time for testing is 6 hrs post dosageThis test is specific for monitoring patients on UFH, and is not recommended for use with other Anti-Xa medications. Performed By: #### U FHXA ####[facility] ([facility])[address] [address] VIR ANTI XA UFH 0.53 IU/mL Normal 0.30-0.70 [facility] Comment on above: Result Comment: Opti mal time for testing is 6 hrs post dosageThis test is specific for monitoring patients on UFH, and is not recommended for use with other Anti-Xa medications. Performed By: #### U FHXA ####[facility] ([facility])[address] [address] VIR PLATELET COUNTon 06-17-2024 Platelet mean volume (Bld) [Entitic vol] 10.4 fL Normal 7-12 [facility] Comment on above: Order Comment: Disco ntinue platelets after Heparin is stopped. Performed By: #### P LTCT ####[facility] ([facility])[address] [address] VIR Platelets (Bld) [#/Vol] 342 10*3/uL Normal 150-450 [facility] Comment on above: Order Comment: Disco ntinue platelets after Heparin is stopped. Performed By: #### P LTCT ####[facility] ([facility])[address], [place] [address] VIR Platelet mean volume (Bld) [Entitic vol] 10.2 fL Normal 7-12 [facility] Comment on above: Performed By: #### P LTCT ####[facility] ([facility])[address], [place] [address] VIR Platelets (Bld) [#/Vol] 335 10*3/uL Normal 150-450 [facility] Comment on above: Performed By: #### P LTCT ####[facility] ([facility])[address] [facility] [address], [place] [address] VIR PROTIME AND INRon 06-17-2024 INR 1.1 Normal 0.9-1.2 [facility] Comment on above: Performed By: #### P INR ####[facility] ([facility])[address], [place] [address] VIR PT Coag (PPP) [Time] 12.0 s Normal 9.8-13.2 [facility] Comment on above: Performed By: #### P INR ####[facility] ([facility])[address], [place] [address] VIR B-TYPE NATRIURETIC PEPTIDEon 06-16-2024 Natriuretic peptide B (Bld) [Mass/Vol] 6 pg/mL Normal <=100 [facility] Comment on above: Performed By: #### B FISHING HAND ####[facility] ([facility])[address], [place] [address] VIR CBC WITH AUTO DIFFERENTIALon 06-16-2024 BASOPHILS ABSOLUTE COUNT (10*3/UL) BY AUTOMATED COUNT 0.0 10*3/uL Normal [facility] Comment on above: Performed By: #### C BCA ####[facility] ([facility])[address], [place] [address] VIR BASOPHILS RELATIVE PERCENT BY AUTOMATED COUNT 1.0 % [facility] Comment on above: Performed By: #### C BCA ####[facility] ([facility])[address], [place] [address] VIR CELLAVISION DIFFERENTIAL TYPE AUTOMATED DIFFERENTIAL Normal [facility] Comment on above: Performed By: #### C BCA ####[facility] ([facility])[address], [place] [address] VIR Eosinophils (Bld) [#/Vol] 0.0 10*3/uL Normal [facility] Comment on above: Performed By: #### C BCA ####[facility] ([facility])[address], [place] [address] VIR EOSINOPHILS RELATIVE PERCENT BY AUTOMATED COUNT 0.8 % [facility] Comment on above: Performed By: #### C BCA ####[facility] ([facility])[address], [place] [address] VIR Erythrocyte distribution width (RBC) [Ratio] 18.1 % High 11.5-15 [facility] Comment on above: Performed By: #### C BCA ####[facility] ([facility])[address], [place] [address] VIR Hematocrit (Bld) [Volume fraction] 29.1 % Low 35-47 [facility] Comment on above: Performed By: #### C BCA ####[facility] ([facility])[address], [place] [address] VIR Hemoglobin (Bld) [Mass/Vol] 9.7 g/dL Low 11.7-15.5 [facility] Comment on above: Performed By: #### C BCA ####[facility] ([facility])[address], [place] [address] VIR LYMPHOCYTES ABSOLUTE COUNT (10*3/UL) BY AUTOMATED COUNT 1.3 10*3/uL Normal [facility] Comment on above: Performed By: #### C BCA ####[facility] ([facility])[address], [place] [address] VIR LYMPHOCYTES RELATIVE PERCENT BY AUTOMATED COUNT 32.2 % Normal [facility] Comment on above: Performed By: #### C BCA ####[facility] ([facility])[address], [place] [address] VIR MCH (RBC) [Entitic mass] 30.1 pg Normal 27-34 [facility] Comment on above: Performed By: #### C BCA ####[facility] ([facility])[address], [place] [address] VIR MCHC (RBC) [Mass/Vol] 33.2 g/dL Normal 32-36 [facility] Comment on above: Performed By: #### C BCA ####[facility] ([facility])[address], [place] [address] VIR MCV (RBC) [Entitic vol] 91 fL Normal 80-100 [facility] Comment on above: Performed By: #### C BCA ####[facility] ([facility])[address], [place] [address] VIR MONOCYTES ABSOLUTE COUNT (10*3/UL) BY AUTOMATED COUNT 0.5 10*3/uL Normal [facility] Comment on above: Performed By: #### C BCA ####[facility] ([facility])[address], [place] [address] VIR MONOCYTES RELATIVE PERCENT BY AUTOMATED COUNT 13.6 % Normal [facility] Comment on above: Performed By: #### C BCA ####[facility] ([facility])[address], [place] [address] VIR NEUTROPHILS ABSOLUTE COUNT BY AUTOMATED COUNT 2.1 10*3/uL Normal [facility] Comment on above: Performed By: #### C BCA ####[facility] ([facility])[address], [place] [address] VIR NEUTROPHILS RELATIVE PERCENT BY AUTOMATED COUNT 52.4 % Normal [facility] Comment on above: Performed By: #### C BCA ####[facility] ([facility])[address], [place] [address] VIR Platelet mean volume (Bld) [Entitic vol] 10.1 fL Normal 7-12 [facility] Comment on above: Performed By: #### C BCA ####[facility] ([facility])[address], [place] [address] VIR Platelets (Bld) [#/Vol] 304 10*3/uL Normal 150-450 [facility] Comment on above: Performed By: #### C BCA ####[facility] ([facility])[address], [place] [address] VIR RBC COUNT 3.21 X10E12/L Low 3.8-5.2 [facility] Comment on above: Performed By: #### C BCA ####[facility] ([facility])[address], [place] [address] VIR WBC (Bld) [#/Vol] 3.9 10*3/uL Low 4-11 [facility] Comment on above: Performed By: #### C BCA ####[facility] ([facility])[address], [place] [address] CTA ABD AND PELVISon 05-0 CT CTA ABD AND PELVIS Normal [facility] CT CTA CHESTon 06-16-2024 CT CTA CHEST Normal [facility] TROP I, HIGH SENSITIVITY 1 H OURon 06-16-2024 TROPONIN I, HIGH SENSITIVITY 4 ng/L Normal <16 [facility] Comment on above: Performed By: #### T NIHS1 ####[facility] ([facility])[address], [place] [address] VIR TROPONIN I, HIGH SENSITIVITY 0 HOURon 06-16-2024 TROPONIN I, HIGH SENSITIVITY 4 ng/L Normal <16 [facility] Comment on above: Performed By: #### T NIHS0 ####[facility] ([facility])[address], [place] [address] VIR US PELVIC COMPLETEon 025 US PELVIC COMPLETE Normal [facility] BASIC METABOLIC PANELon Anion gap [Moles/Vol] 11 mmol/L Normal 5-15 [facility] Comment on above: Performed By: #### B MP ####[facility] ([facility])[address], [place] [address] VIR Calcium [Mass/Vol] 9.1 mg/dL Normal 8.5-10.5 [facility] Comment on above: Performed By: #### B MP ####[facility] ([facility])[address], [place] [address] VIR Chloride [Moles/Vol] 102 mmol/L Normal 98-109 [facility] Comment on above: Performed By: #### B MP ####[facility] ([facility])[address], [place] [address] VIR CO2 [Moles/Vol] 26 mmol/L Normal 22-32 [facility] Comment on above: Performed By: #### B MP ####[facility] ([facility])[address], [place] [address] VIR Creatinine [Mass/Vol] 0.51 mg/dL Normal 0.40-1.00 [facility] Comment on above: Result Comment: METH OD TRACEABLE TO IDMS STANDARD Performed By: #### B MP ####[facility] ([facility])[address], [place] [address] VIR EGFR (CKD-EPI) NON-RACE DEPENDENT >^90 Normal >=60 [facility] Comment on above: Result Comment: Repo rted eGFR is based on theD-EPI 2020 equation that doesnot use a race coefficient. Performed By: #### B MP ####[facility] ([facility])[address], [place] [address] VIR Glucose [Mass/Vol] 118 mg/dL High 65-99 [facility] Comment on above: Performed By: #### B MP ####[facility] ([facility])[address], [place] [address] VIR Potassium [Moles/Vol] 4.1 mmol/L Normal 3.5-5.0 [facility] Comment on above: Performed By: #### B MP ####[facility] ([facility])[address], [place] [address] VIR Sodium [Moles/Vol] 139 mmol/L Normal 134-146 [facility] Comment on above: Performed By: #### B MP ####[facility] ([facility])[address], [place] [address] VIR Urea nitrogen [Mass/Vol] 20 mg/dL Normal 5-23 [facility] Comment on above: Performed By: #### B MP ####[facility] ([facility])[address], [place] [address] VIR BEDSIDE GLUCOSEon 06-10-2024 Glucose [Mass/Vol] 137 mg/dL High 65-99 [facility] Comment on above: Performed By: #### B EDG ####[facility] ([facility])[address] [facility] [place] [address] VIR Glucose [Mass/Vol] 104 mg/dL High 65-99 [facility] Comment on above: Performed By: #### B EDG ####[facility] ([facility])[address] [facility] [place] [address] VIR CBC WITH AUTO DIFFERENTIALon 06-10-2024 CELLAVISION DIFFERENTIAL TYPE MANUAL DIFFERENTIAL Normal [facility] Comment on above: Result Comment: This is an appended report. These results have been appended to a previously preliminary verified report. Performed By: #### C BCA ####[facility] ([facility])[address] [facility] [address] [address] VIR CELLAVISION EOSINOPHILS ABSOLUTE COUNT (10*3/UL) BY MANUAL COUNT 0.8 10*3/uL Normal [facility] Comment on above: Result Comment: This is an appended report. These results have been appended to a previously preliminary verified report. Performed By: #### C BCA ####[facility] ([facility])[address] [facility] [address] [address] VIR CELLAVISION EOSINOPHILS PERCENT BY MANUAL COUNT 10 % Normal [facility] Comment on above: Result Comment: This is an appended report. These results have been appended to a previously preliminary verified report. Performed By: #### C BCA ####[facility] ([facility])[address] [facility] [address] [place] [address] VIR CELLAVISION LYMPHOCYTES ABSOLUTE COUNT (10*3/UL) BY MANUAL COUNT 1.7 10*3/uL Normal [facility] Comment on above: Result Comment: This is an appended report. These results have been appended to a previously preliminary verified report. Performed By: #### C BCA ####[facility] ([facility])[address] [facility] [address] [address] VIR CELLAVISION LYMPHOCYTES RELATIVE PERCENT BY MANUAL COUNT 20 % Normal [facility] Comment on above: Result Comment: This is an appended report. These results have been appended to a previously preliminary verified report. Performed By: #### C BCA ####[facility] ([facility])[address] [facility] [address], [place] [address] VIR CELLAVISION MONOCYTES ABSOLUTE COUNT (10*3/UL) IN BLOOD BY MANUAL COUNT 0.3 10*3/uL Normal [facility] Comment on above: Result Comment: This is an appended report. These results have been appended to a previously preliminary verified report. Performed By: #### C BCA ####[facility] ([facility])[address], [place] [address] VIR CELLAVISION MONOCYTES RELATIVE PERCENT BY MANUAL COUNT 4 % Normal [facility] Comment on above: Result Comment: This is an appended report. These results have been appended to a previously preliminary verified report. Performed By: #### C BCA ####[facility] ([facility])[address], [place] [address] VIR CELLAVISION NEUTROPHILS ABSOLUTE COUNT BY MANUAL COUNT 5.5 10*3/uL Normal [facility] Comment on above: Result Comment: This is an appended report. These results have been appended to a previously preliminary verified report. Performed By: #### C BCA ####[facility] ([facility])[address], [place] [address] VIR CELLAVISION NEUTROPHILS RELATIVE PERCENT BY MANUAL COUNT 66 % Normal [facility] Comment on above: Result Comment: This is an appended report. These results have been appended to a previously preliminary verified report. Performed By: #### C BCA ####[facility] ([facility])[address], [place] [address] VIR CELLAVISION NUCLEATED RED BLOOD CELLS IN BLOOD BY LIGHT MICROSCOPY 2 Normal [facility] Comment on above: Result Comment: This is an appended report. These results have been appended to a previously preliminary verified report. Performed By: #### C BCA ####[facility] ([facility])[address], [place] [address] VIR CELLAVISION POLYCHROMASIA IN BLOOD BY LIGHT MICROSCOPY 1+ Normal [facility] Comment on above: Result Comment: This is an appended report. These results have been appended to a previously preliminary verified report. Performed By: #### C BCA ####[facility] ([facility])[address], [place] [address] VIR Erythrocyte distribution width (RBC) [Ratio] 19.6 % High 11.5-15 [facility] Comment on above: Performed By: #### C BCA ####[facility] ([facility])[address], [place] [address] VIR Hematocrit (Bld) [Volume fraction] 27.2 % Low 35-47 [facility] Comment on above: Performed By: #### C BCA ####[facility] ([facility])[address], [place] [address] VIR Hemoglobin (Bld) [Mass/Vol] 9.3 g/dL Low 11.7-15.5 [facility] Comment on above: Performed By: #### C BCA ####[facility] ([facility])[address], [place] [address] VIR MCH (RBC) [Entitic mass] 31.5 pg Normal 27-34 [facility] Comment on above: Performed By: #### C BCA ####[facility] ([facility])[address], [place] [address] VIR MCHC (RBC) [Mass/Vol] 34.0 g/dL Normal 32-36 [facility] Comment on above: Performed By: #### C BCA ####[facility] ([facility])[address], [place] [address] VIR MCV (RBC) [Entitic vol] 93 fL Normal 80-100 [facility] Comment on above: Performed By: #### C BCA ####[facility] ([facility])[address], [place] [address] VIR Platelet mean volume (Bld) [Entitic vol] 10.0 fL Normal 7-12 [facility] Comment on above: Performed By: #### C BCA ####[facility] ([facility])[address], [place] [address] VIR Platelets (Bld) [#/Vol] 230 10*3/uL Normal 150-450 [facility] Comment on above: Performed By: #### C BCA ####[facility] ([facility])[address], [place] [address] VIR RBC COUNT 2.94 X10E12/L Low 3.8-5.2 [facility] Comment on above: Performed By: #### C BCA ####[facility] ([facility])[address], [place] [address] VIR WBC (Bld) [#/Vol] 8.3 10*3/uL Normal 4-11 [facility] Comment on above: Performed By: #### C BCA ####[facility] ([facility])[address], [place] [address] VIR IONIZED CALCIUMon 06-10-2024 IONIZED CALCIUM - ICAN 4.8 mg/dL Normal 4.5-5.3 [facility] Comment on above: Performed By: #### I CA ####[facility] ([facility])[address], [place] [address] VIR IONIZED MAGNESIUMon 06-11-19 Magnesium [Moles/Vol] 0.39 mmol/L Low 0.45-0.74 [facility] Comment on above: Performed By: #### I MAG ####[facility] ([facility])[address], [place] [address] VIR MAGNESIUMon 06-10-2024 Magnesium [Mass/Vol] 1.7 mg/dL Low 1.8-2.6 [facility] Comment on above: Performed By: #### M G ####[facility] ([facility])[address], [place] [address] VIR PHOSPHORUSon 06-10-2024 Phosphate [Mass/Vol] 5.5 mg/dL High 2.4-4.9 [facility] Comment on above: Performed By: #### P HOS ####[facility] ([facility])[address], [place] [address] VIR BASIC METABOLIC PANELon 04-3 Anion gap [Moles/Vol] 8 mmol/L Normal 5-15 [facility] Comment on above: Performed By: #### B MP ####[facility] ([facility])[address], [place] [address] VIR Calcium [Mass/Vol] 9.1 mg/dL Normal 8.5-10.5 [facility] Comment on above: Performed By: #### B MP ####[facility] ([facility])[address], [place] [address] VIR Chloride [Moles/Vol] 100 mmol/L Normal 98-109 [facility] Comment on above: Performed By: #### B MP ####[facility] ([facility])[address], [place] [address] VIR CO2 [Moles/Vol] 27 mmol/L Normal 22-32 [facility] Comment on above: Performed By: #### B MP ####[facility] ([facility])[address], [place] [address] VIR Creatinine [Mass/Vol] 0.43 mg/dL Normal 0.40-1.00 [facility] Comment on above: Result Comment: METH OD TRACEABLE TO IDMS STANDARD Performed By: #### B MP ####[facility] ([facility])[address], [place] [address] VIR EGFR (CKD-EPI) NON-RACE DEPENDENT >^90 Normal >=60 [facility] Comment on above: Result Comment: Repo rted eGFR is based on theCKD-EPI 2020 equation that doesnot use a race coefficient. Performed By: #### B MP ####[facility] ([facility])[address], [place] [address] VIR Glucose [Mass/Vol] 112 mg/dL High 65-99 [facility] Comment on above: Performed By: #### B MP ####[facility] ([facility])[address], [place] [address] VIR Potassium [Moles/Vol] 4.2 mmol/L Normal 3.5-5.0 [facility] Comment on above: Performed By: #### B MP ####[facility] ([facility])[address], [place] [address] VIR Sodium [Moles/Vol] 135 mmol/L Normal 134-146 [facility] Comment on above: Performed By: #### B MP ####[facility] ([facility])[address], [place] [address] VIR Urea nitrogen [Mass/Vol] 15 mg/dL Normal 5-23 [facility] Comment on above: Performed By: #### B MP ####[facility] ([facility])[address], [place] [address] VIR BEDSIDE GLUCOSEon 06-09-2024 Glucose [Mass/Vol] 127 mg/dL High 65-99 [facility] Comment on above: Performed By: #### B EDG ####[facility] ([facility])[address] [place] [address] VIR Glucose [Mass/Vol] 132 mg/dL High 65-99 [facility] Comment on above: Performed By: #### B EDG ####[facility] ([facility])[address] [place] [address] VIR Glucose [Mass/Vol] 129 mg/dL High 65-99 [facility] Comment on above: Performed By: #### B EDG ####[facility] ([facility])[address] [place] [address] VIR CBC WITH AUTO DIFFERENTIALon 06-09-2024 Band form neutrophils/100 WBC (Bld) 1 % Normal [facility] Comment on above: Result Comment: This is an appended report. These results have been appended to a previously preliminary verified report. Performed By: #### C BCA ####[facility] ([facility])[address], [place] [address] VIR CELLAVISION DIFFERENTIAL TYPE CELLAVISION DIFFERENTIAL Normal [facility] Comment on above: Result Comment: This is an appended report. These results have been appended to a previously preliminary verified report. Performed By: #### C BCA ####[facility] ([facility])[address] [address], [place] [address] VIR CELLAVISION EOSINOPHILS ABSOLUTE COUNT (10*3/UL) BY MANUAL COUNT 0.1 10*3/uL Normal [facility] Comment on above: Result Comment: This is an appended report. These results have been appended to a previously preliminary verified report. Performed By: #### C BCA ####[facility] ([facility])[address], [place] [address] VIR CELLAVISION EOSINOPHILS PERCENT BY MANUAL COUNT 1 % Normal [facility] Comment on above: Result Comment: This is an appended report. These results have been appended to a previously preliminary verified report. Performed By: #### C BCA ####[facility] ([facility])[address], [place] [address] VIR CELLAVISION LYMPHOCYTES ABSOLUTE COUNT (10*3/UL) BY MANUAL COUNT 2.9 10*3/uL Normal [facility] Comment on above: Result Comment: This is an appended report. These results have been appended to a previously preliminary verified report. Performed By: #### C BCA ####[facility] ([facility])[address], [place] [address] VIR CELLAVISION LYMPHOCYTES RELATIVE PERCENT BY MANUAL COUNT 31 % Normal [facility] Comment on above: Result Comment: This is an appended report. These results have been appended to a previously preliminary verified report. Performed By: #### C BCA ####[facility] ([facility])[address], [place] [address] VIR CELLAVISION METAMYELOCYTES RELATIVE PERCENT BY MANUAL COUNT 1 % Normal [facility] Comment on above: Result Comment: This is an appended report. These results have been appended to a previously preliminary verified report. Performed By: #### C BCA ####[facility] ([facility])[address], [place] [address] VIR CELLAVISION MONOCYTES ABSOLUTE COUNT (10*3/UL) IN BLOOD BY MANUAL COUNT 0.4 10*3/uL Normal [facility] Comment on above: Result Comment: This is an appended report. These results have been appended to a previously preliminary verified report. Performed By: #### C BCA ####[facility] ([facility])[address], [place] [address] VIR CELLAVISION MONOCYTES RELATIVE PERCENT BY MANUAL COUNT 5 % Normal [facility] Comment on above: Result Comment: This is an appended report. These results have been appended to a previously preliminary verified report. Performed By: #### C BCA ####[facility] ([facility])[address], [place] [address] VIR CELLAVISION MYELOCYTE RELATIVE PERCENT BY MANUAL COUNT 2 % Normal [facility] Comment on above: Result Comment: This is an appended report. These results have been appended to a previously preliminary verified report. Performed By: #### C BCA ####[facility] ([facility])[address], [place] [address] VIR CELLAVISION NEUTROPHILS ABSOLUTE COUNT BY MANUAL COUNT 5.5 10*3/uL Normal [facility] Comment on above: Result Comment: This is an appended report. These results have been appended to a previously preliminary verified report. Performed By: #### C BCA ####[facility] ([facility])[address], [place] [address] VIR CELLAVISION NEUTROPHILS RELATIVE PERCENT BY MANUAL COUNT 59 % Normal [facility] Comment on above: Result Comment: This is an appended report. These results have been appended to a previously preliminary verified report. Performed By: #### C BCA ####[facility] ([facility])[address], [place] [address] VIR CELLAVISION POLYCHROMASIA IN BLOOD BY LIGHT MICROSCOPY 1+ Normal [facility] Comment on above: Result Comment: This is an appended report. These results have been appended to a previously preliminary verified report. Performed By: #### C BCA ####[facility] ([facility])[address], [place] [address] VIR Erythrocyte distribution width (RBC) [Ratio] 18.2 % High 11.5-15 [facility] Comment on above: Performed By: #### C BCA ####[facility] ([facility])[address], [place] [address] VIR Hematocrit (Bld) [Volume fraction] 26.2 % Low 35-47 [facility] Comment on above: Performed By: #### C BCA ####[facility] ([facility])[address], [place] [address] VIR Hemoglobin (Bld) [Mass/Vol] 8.9 g/dL Low 11.7-15.5 [facility] Comment on above: Performed By: #### C BCA ####[facility] ([facility])[address], [place] [address] VIR MCH (RBC) [Entitic mass] 31.0 pg Normal 27-34 [facility] Comment on above: Performed By: #### C BCA ####[facility] ([facility])[address], [place] [address] VIR MCHC (RBC) [Mass/Vol] 34.0 g/dL Normal 32-36 [facility] Comment on above: Performed By: #### C BCA ####[facility] ([facility])[address], [place] [address] VIR MCV (RBC) [Entitic vol] 91 fL Normal 80-100 [facility] Comment on above: Performed By: #### C BCA ####[facility] ([facility])[address], [place] [address] VIR Platelet mean volume (Bld) [Entitic vol] 9.5 fL Normal 7-12 [facility] Comment on above: Performed By: #### C BCA ####[facility] ([facility])[address], [place] [address] VIR Platelets (Bld) [#/Vol] 240 10*3/uL Normal 150-450 [facility] Comment on above: Performed By: #### C BCA ####[facility] ([facility])[address], [place] [address] VIR RBC COUNT 2.87 X10E12/L Low 3.8-5.2 [facility] Comment on above: Performed By: #### C BCA ####[facility] ([facility])[address], [place] [address] VIR WBC (Bld) [#/Vol] 9.1 10*3/uL Normal 4-11 [facility] Comment on above: Performed By: #### C BCA ####[facility] ([facility])[address], [place] [address] VIR IONIZED CALCIUMon 06-09-2024 IONIZED CALCIUM - ICAN 5.0 mg/dL Normal 4.5-5.3 [facility] Comment on above: Performed By: #### I CA ####[facility] ([facility])[address], [place] [address] VIR IONIZED MAGNESIUMon 06-10-19 25 Magnesium [Moles/Vol] 0.47 mmol/L Normal 0.45-0.74 [facility] Comment on above: Performed By: #### I MAG ####[facility] ([facility])[address], [place] [address] VIR MAGNESIUMon 06-09-2024 Magnesium [Mass/Vol] 1.9 mg/dL Normal 1.8-2.6 [facility] Comment on above: Performed By: #### M G ####[facility] ([facility])[address], [place] [address] VIR PHOSPHORUSon 06-09-2024 Phosphate [Mass/Vol] 5.3 mg/dL High 2.4-4.9 [facility] Comment on above: Performed By: #### P HOS ####[facility] ([facility])[address], [place] [address] VIR BASIC METABOLIC PANELon 05-12 Anion gap [Moles/Vol] 11 mmol/L Normal 5-15 [facility] Comment on above: Performed By: #### B MP ####[facility] ([facility])[address], [place] [address] VIR Calcium [Mass/Vol] 9.0 mg/dL Normal 8.5-10.5 [facility] Comment on above: Performed By: #### B MP ####[facility] ([facility])[address], [place] [address] VIR Chloride [Moles/Vol] 102 mmol/L Normal 98-109 [facility] Comment on above: Performed By: #### B MP ####[facility] ([facility])[address], [place] [address] VIR CO2 [Moles/Vol] 25 mmol/L Normal 22-32 [facility] Comment on above: Performed By: #### B MP ####[facility] ([facility])[address], [place] [address] VIR Creatinine [Mass/Vol] 0.43 mg/dL Normal 0.40-1.00 [facility] Comment on above: Result Comment: METH OD TRACEABLE TO IDMS STANDARD Performed By: #### B MP ####[facility] ([facility])[address], [place] [address] VIR EGFR (CKD-EPI) NON-RACE DEPENDENT >^90 Normal >=60 [facility] Comment on above: Result Comment: Repo rted eGFR is based on theCKD-EPI 2020 equation that doesnot use a race coefficient. Performed By: #### B MP ####[facility] ([facility])[address], [place] [address] VIR Glucose [Mass/Vol] 118 mg/dL High 65-99 [facility] Comment on above: Performed By: #### B MP ####[facility] ([facility])[address], [place] [address] VIR Potassium [Moles/Vol] 4.2 mmol/L Normal 3.5-5.0 [facility] Comment on above: Performed By: #### B MP ####[facility] ([facility])[address], [place] [address] VIR Sodium [Moles/Vol] 138 mmol/L Normal 134-146 [facility] Comment on above: Performed By: #### B MP ####[facility] ([facility])[address], [place] [address] VIR Urea nitrogen [Mass/Vol] 13 mg/dL Normal 5-23 [facility] Comment on above: Performed By: #### B MP ####[facility] ([facility])[address], [place] [address] VIR BEDSIDE GLUCOSEon 06-08-2024 Glucose [Mass/Vol] 137 mg/dL High 65-99 [facility] Comment on above: Performed By: #### B EDG ####[facility] ([facility])[address] [place] [address] VIR Glucose [Mass/Vol] 145 mg/dL High 65-99 [facility] Comment on above: Performed By: #### B EDG ####[facility] ([facility])[address] [place] [address] VIR Glucose [Mass/Vol] 122 mg/dL High 65-99 [facility] Comment on above: Performed By: #### B EDG ####[facility] ([facility])[address] [place] [address] VIR Glucose [Mass/Vol] 129 mg/dL High 65-99 [facility] Comment on above: Performed By: #### B EDG ####[facility] ([facility])[address] [facility] [place] [address] VIR CBC WITH AUTO DIFFERENTIALon 06-08-2024 Band form neutrophils/100 WBC (Bld) 1 % Normal [facility] Comment on above: Result Comment: This is an appended report. These results have been appended to a previously preliminary verified report. Performed By: #### C BCA ####[facility] ([facility])[address], [place] [address] VIR CELLAVISION DIFFERENTIAL TYPE CELLAVISION DIFFERENTIAL Normal [facility] Comment on above: Result Comment: This is an appended report. These results have been appended to a previously preliminary verified report. Performed By: #### C BCA ####[facility] ([facility])[address], [place] [address] VIR CELLAVISION EOSINOPHILS ABSOLUTE COUNT (10*3/UL) BY MANUAL COUNT 0.5 10*3/uL Normal [facility] Comment on above: Result Comment: This is an appended report. These results have been appended to a previously preliminary verified report. Performed By: #### C BCA ####[facility] ([facility])[address], [place] [address] VIR CELLAVISION EOSINOPHILS PERCENT BY MANUAL COUNT 5 % Normal [facility] Comment on above: Result Comment: This is an appended report. These results have been appended to a previously preliminary verified report. Performed By: #### C BCA ####[facility] ([facility])[address], [place] [address] VIR CELLAVISION LYMPHOCYTES ABSOLUTE COUNT (10*3/UL) BY MANUAL COUNT 3.0 10*3/uL Normal [facility] Comment on above: Result Comment: This is an appended report. These results have been appended to a previously preliminary verified report. Performed By: #### C BCA ####[facility] ([facility])[address], [place] [address] VIR CELLAVISION LYMPHOCYTES RELATIVE PERCENT BY MANUAL COUNT 31 % Normal [facility] Comment on above: Result Comment: This is an appended report. These results have been appended to a previously preliminary verified report. Performed By: #### C BCA ####[facility] ([facility])[address], [place] [address] VIR CELLAVISION MONOCYTES ABSOLUTE COUNT (10*3/UL) IN BLOOD BY MANUAL COUNT 0.2 10*3/uL Normal [facility] Comment on above: Result Comment: This is an appended report. These results have been appended to a previously preliminary verified report. Performed By: #### C BCA ####[facility] ([facility])[address], [place] [address] VIR CELLAVISION MONOCYTES RELATIVE PERCENT BY MANUAL COUNT 2 % Normal [facility] Comment on above: Result Comment: This is an appended report. These results have been appended to a previously preliminary verified report. Performed By: #### C BCA ####[facility] ([facility])[address], [place] [address] VIR CELLAVISION MYELOCYTE RELATIVE PERCENT BY MANUAL COUNT 6 % Normal [facility] Comment on above: Result Comment: This is an appended report. These results have been appended to a previously preliminary verified report. Performed By: #### C BCA ####[facility] ([facility])[address], [place] [address] VIR CELLAVISION NEUTROPHILS ABSOLUTE COUNT BY MANUAL COUNT 5.5 10*3/uL Normal [facility] Comment on above: Result Comment: This is an appended report. These results have been appended to a previously preliminary verified report. Performed By: #### C BCA ####[facility] ([facility])[address], [place] [address] VIR CELLAVISION NEUTROPHILS RELATIVE PERCENT BY MANUAL COUNT 56 % Normal [facility] Comment on above: Result Comment: This is an appended report. These results have been appended to a previously preliminary verified report. Performed By: #### C BCA ####[facility] ([facility])[address], [place] [address] VIR CELLAVISION NUCLEATED RED BLOOD CELLS IN BLOOD BY LIGHT MICROSCOPY 1 Normal [facility] Comment on above: Result Comment: This is an appended report. These results have been appended to a previously preliminary verified report. Performed By: #### C BCA ####[facility] ([facility])[address], [place] [address] VIR CELLAVISION POLYCHROMASIA IN BLOOD BY LIGHT MICROSCOPY 1+ Normal [facility] Comment on above: Result Comment: This is an appended report. These results have been appended to a previously preliminary verified report. Performed By: #### C BCA ####[facility] ([facility])[address], [place] [address] VIR CELLAVISION RBC FRAGMENTS 1+ Normal [facility] Comment on above: Result Comment: This is an appended report. These results have been appended to a previously preliminary verified report. Performed By: #### C BCA ####[facility] ([facility])[address], [place] [address] VIR Erythrocyte distribution width (RBC) [Ratio] 17.2 % High 11.5-15 [facility] Comment on above: Performed By: #### C BCA ####[facility] ([facility])[address], [place] [address] VIR Hematocrit (Bld) [Volume fraction] 26.0 % Low 35-47 [facility] Comment on above: Performed By: #### C BCA ####[facility] ([facility])[address], [place] [address] VIR Hemoglobin (Bld) [Mass/Vol] 8.8 g/dL Low 11.7-15.5 [facility] Comment on above: Performed By: #### C BCA ####[facility] ([facility])[address], [place] [address] VIR MCH (RBC) [Entitic mass] 30.9 pg Normal 27-34 [facility] Comment on above: Performed By: #### C BCA ####[facility] ([facility])[address], [place] [address] VIR MCHC (RBC) [Mass/Vol] 33.8 g/dL Normal 32-36 [facility] Comment on above: Performed By: #### C BCA ####[facility] ([facility])[address], [place] [address] VIR MCV (RBC) [Entitic vol] 92 fL Normal 80-100 [facility] Comment on above: Performed By: #### C BCA ####[facility] ([facility])[address], [place] [address] VIR Platelet mean volume (Bld) [Entitic vol] 9.4 fL Normal 7-12 [facility] Comment on above: Performed By: #### C BCA ####[facility] ([facility])[address], [place] [address] VIR Platelets (Bld) [#/Vol] 215 10*3/uL Normal 150-450 [facility] Comment on above: Performed By: #### C BCA ####[facility] ([facility])[address], [place] [address] VIR RBC COUNT 2.84 X10E12/L Low 3.8-5.2 [facility] Comment on above: Performed By: #### C BCA ####[facility] ([facility])[address], [place] [address] VIR WBC (Bld) [#/Vol] 9.6 10*3/uL Normal 4-11 [facility] Comment on above: Performed By: #### C BCA ####[facility] ([facility])[address], [place] [address] VIR IONIZED CALCIUMon 06-08-2024 IONIZED CALCIUM - ICAN 5.0 mg/dL Normal 4.5-5.3 [facility] Comment on above: Performed By: #### I CA ####[facility] ([facility])[address], [place] [address] VIR IONIZED MAGNESIUMon 06-09-19 25 Magnesium [Moles/Vol] 0.42 mmol/L Low 0.45-0.74 [facility] Comment on above: Performed By: #### I MAG ####[facility] ([facility])[address], [place] [address] VIR MAGNESIUMon 06-08-2024 Magnesium [Mass/Vol] 1.8 mg/dL Normal 1.8-2.6 [facility] Comment on above: Performed By: #### M G ####[facility] ([facility])[address], [place] [address] VIR PHOSPHORUSon 06-08-2024 Phosphate [Mass/Vol] 5.1 mg/dL High 2.4-4.9 [facility] Comment on above: Performed By: #### P HOS ####[facility] ([facility])[address], [place] [address] VIR BASIC METABOLIC PANELon 05-12 Anion gap [Moles/Vol] 10 mmol/L Normal 5-15 [facility] Comment on above: Performed By: #### B MP ####[facility] ([facility])[address], [place] [address] VIR Calcium [Mass/Vol] 9.1 mg/dL Normal 8.5-10.5 [facility] Comment on above: Performed By: #### B MP ####[facility] ([facility])[address], [place] [address] VIR Chloride [Moles/Vol] 102 mmol/L Normal 98-109 [facility] Comment on above: Performed By: #### B MP ####[facility] ([facility])[address], [place] [address] VIR CO2 [Moles/Vol] 31 mmol/L Normal 22-32 [facility] Comment on above: Performed By: #### B MP ####[facility] ([facility])[address], [place] [address] VIR Creatinine [Mass/Vol] 0.59 mg/dL Normal 0.40-1.00 [facility] Comment on above: Result Comment: METH OD TRACEABLE TO IDMS STANDARD Performed By: #### B MP ####[facility] ([facility])[address], [place] [address] VIR EGFR (CKD-EPI) NON-RACE DEPENDENT >^90 Normal >=60 [facility] Comment on above: Result Comment: Repo rted eGFR is based on theCKD-EPI 2020 equation that doesnot use a race coefficient. Performed By: #### B MP ####[facility] ([facility])[address], [place] [address] VIR Glucose [Mass/Vol] 92 mg/dL Normal 65-99 [facility] Comment on above: Performed By: #### B MP ####[facility] ([facility])[address], [place] [address] VIR Potassium [Moles/Vol] 4.8 mmol/L Normal 3.5-5.0 [facility] Comment on above: Performed By: #### B MP ####[facility] ([facility])[address] [facility] [address], [place] [address] VIR Sodium [Moles/Vol] 143 mmol/L Normal 134-146 [facility] Comment on above: Performed By: #### B MP ####[facility] ([facility])[address], [place] [address] VIR Urea nitrogen [Mass/Vol] 12 mg/dL Normal 5-23 [facility] Comment on above: Performed By: #### B MP ####[facility] ([facility])[address], [place] [address] VIR BEDSIDE GLUCOSEon 06-07-2024 Glucose [Mass/Vol] 123 mg/dL High 65-99 [facility] Comment on above: Performed By: #### B EDG ####[facility] ([facility])[address] [place] [address] VIR Glucose [Mass/Vol] 114 mg/dL High 65-99 [facility] Comment on above: Performed By: #### B EDG ####[facility] ([facility])[address] [place] [address] VIR Glucose [Mass/Vol] 121 mg/dL High 65-99 [facility] Comment on above: Performed By: #### B EDG ####[facility] ([facility])[address] [place] [address] VIR Glucose [Mass/Vol] 138 mg/dL High 65-99 [facility] Comment on above: Performed By: #### B EDG ####[facility] ([facility])[address] [place] [address] VIR CBC WITH AUTO DIFFERENTIALon 06-07-2024 Band form neutrophils/100 WBC (Bld) 1 % Normal [facility] Comment on above: Result Comment: This is an appended report. These results have been appended to a previously preliminary verified report. Performed By: #### C BCA ####[facility] ([facility])[address] [address], [place] [address] VIR CELLAVISION DIFFERENTIAL TYPE MANUAL DIFFERENTIAL Normal [facility] Comment on above: Result Comment: This is an appended report. These results have been appended to a previously preliminary verified report. Performed By: #### C BCA ####[facility] ([facility])[address], [place] [address] VIR CELLAVISION EOSINOPHILS ABSOLUTE COUNT (10*3/UL) BY MANUAL COUNT 0.3 10*3/uL Normal [facility] Comment on above: Result Comment: This is an appended report. These results have been appended to a previously preliminary verified report. Performed By: #### C BCA ####[facility] ([facility])[address], [place] [address] VIR CELLAVISION EOSINOPHILS PERCENT BY MANUAL COUNT 4 % Normal [facility] Comment on above: Result Comment: This is an appended report. These results have been appended to a previously preliminary verified report. Performed By: #### C BCA ####[facility] ([facility])[address], [place] [address] VIR CELLAVISION LYMPHOCYTES ABSOLUTE COUNT (10*3/UL) BY MANUAL COUNT 1.8 10*3/uL Normal [facility] Comment on above: Result Comment: This is an appended report. These results have been appended to a previously preliminary verified report. Performed By: #### C BCA ####[facility] ([facility])[address], [place] [address] VIR CELLAVISION LYMPHOCYTES RELATIVE PERCENT BY MANUAL COUNT 21 % Normal [facility] Comment on above: Result Comment: This is an appended report. These results have been appended to a previously preliminary verified report. Performed By: #### C BCA ####[facility] ([facility])[address], [place] [address] VIR CELLAVISION MONOCYTES ABSOLUTE COUNT (10*3/UL) IN BLOOD BY MANUAL COUNT 1.0 10*3/uL Normal [facility] Comment on above: Result Comment: This is an appended report. These results have been appended to a previously preliminary verified report. Performed By: #### C BCA ####[facility] ([facility])[address], [place] [address] VIR CELLAVISION MONOCYTES RELATIVE PERCENT BY MANUAL COUNT 12 % Normal [facility] Comment on above: Result Comment: This is an appended report. These results have been appended to a previously preliminary verified report. Performed By: #### C BCA ####[facility] ([facility])[address], [place] [address] VIR CELLAVISION MYELOCYTE RELATIVE PERCENT BY MANUAL COUNT 2 % Normal [facility] Comment on above: Result Comment: This is an appended report. These results have been appended to a previously preliminary verified report. Performed By: #### C BCA ####[facility] ([facility])[address], [place] [address] VIR CELLAVISION NEUTROPHILS ABSOLUTE COUNT BY MANUAL COUNT 5.4 10*3/uL Normal [facility] Comment on above: Result Comment: This is an appended report. These results have been appended to a previously preliminary verified report. Performed By: #### C BCA ####[facility] ([facility])[address], [place] [address] VIR CELLAVISION NEUTROPHILS RELATIVE PERCENT BY MANUAL COUNT 60 % Normal [facility] Comment on above: Result Comment: This is an appended report. These results have been appended to a previously preliminary verified report. Performed By: #### C BCA ####[facility] ([facility])[address], [place] [address] VIR CELLAVISION NUCLEATED RED BLOOD CELLS IN BLOOD BY LIGHT MICROSCOPY 1 Normal [facility] Comment on above: Result Comment: This is an appended report. These results have been appended to a previously preliminary verified report. Performed By: #### C BCA ####[facility] ([facility])[address], [place] [address] VIR CELLAVISION POLYCHROMASIA IN BLOOD BY LIGHT MICROSCOPY 1+ Normal [facility] Comment on above: Result Comment: This is an appended report. These results have been appended to a previously preliminary verified report. Performed By: #### C BCA ####[facility] ([facility])[address], [place] [address] VIR Erythrocyte distribution width (RBC) [Ratio] 16.6 % High 11.5-15 [facility] Comment on above: Performed By: #### C BCA ####[facility] ([facility])[address], [place] [address] VIR Hematocrit (Bld) [Volume fraction] 23.2 % Low 35-47 [facility] Comment on above: Performed By: #### C BCA ####[facility] ([facility])[address], [place] [address] VIR Hemoglobin (Bld) [Mass/Vol] 7.8 g/dL Low 11.7-15.5 [facility] Comment on above: Performed By: #### C BCA ####[facility] ([facility])[address], [place] [address] VIR MCH (RBC) [Entitic mass] 30.8 pg Normal 27-34 [facility] Comment on above: Performed By: #### C BCA ####[facility] ([facility])[address], [place] [address] VIR MCHC (RBC) [Mass/Vol] 33.6 g/dL Normal 32-36 [facility] Comment on above: Performed By: #### C BCA ####[facility] ([facility])[address], [place] [address] VIR MCV (RBC) [Entitic vol] 92 fL Normal 80-100 [facility] Comment on above: Performed By: #### C BCA ####[facility] ([facility])[address], [place] [address] VIR Platelet mean volume (Bld) [Entitic vol] 9.6 fL Normal 7-12 [facility] Comment on above: Performed By: #### C BCA ####[facility] ([facility])[address], [place] [address] VIR Platelets (Bld) [#/Vol] 172 10*3/uL Normal 150-450 [facility] Comment on above: Performed By: #### C BCA ####[facility] ([facility])[address], [place] [address] VIR RBC COUNT 2.53 X10E12/L Low 3.8-5.2 [facility] Comment on above: Performed By: #### C BCA ####[facility] ([facility])[address], [place] [address] VIR WBC (Bld) [#/Vol] 8.7 10*3/uL Normal 4-11 [facility] Comment on above: Performed By: #### C BCA ####[facility] ([facility])[address], [place] [address] VIR IONIZED CALCIUMon 06-07-2024 IONIZED CALCIUM - ICAN 4.8 mg/dL Normal 4.5-5.3 [facility] Comment on above: Performed By: #### I CA ####[facility] ([facility])[address], [place] [address] VIR IONIZED MAGNESIUMon 06-08-19 Magnesium [Moles/Vol] 0.34 mmol/L Low 0.45-0.74 [facility] Comment on above: Performed By: #### I MAG ####[facility] ([facility])[address], [place] [address] VIR MAGNESIUMon 06-07-2024 Magnesium [Mass/Vol] 2.2 mg/dL Normal 1.8-2.6 [facility] Comment on above: Performed By: #### M G ####[facility] ([facility])[address], [place] [address] VIR PHOSPHORUSon 06-07-2024 Phosphate [Mass/Vol] 4.9 mg/dL Normal 2.4-4.9 [facility] Comment on above: Performed By: #### P HOS ####[facility] ([facility])[address], [place] [address] VIR TRIGLYCERIDESon 06-07-2024 Triglyceride [Mass/Vol] 89 mg/dL Normal 27-150 [facility] Comment on above: Performed By: #### T RIG ####[facility] ([facility])[address], [place] [address] VIR BASIC METABOLIC PANELon 05-12 BASIC METABOLIC PANEL BMP BASIC METABOLIC PANEL Cancelled Normal [facility] Anion gap [Moles/Vol] 8 mmol/L Normal 5-15 [facility] Comment on above: Performed By: #### B MP ####[facility] ([facility])[address], [place] [address] VIR Calcium [Mass/Vol] 8.3 mg/dL Low 8.5-10.5 [facility] Comment on above: Performed By: #### B MP ####[facility] ([facility])[address], [place] [address] VIR Chloride [Moles/Vol] 102 mmol/L Normal 98-109 [facility] Comment on above: Performed By: #### B MP ####[facility] ([facility])[address], [place] [address] VIR CO2 [Moles/Vol] 26 mmol/L Normal 22-32 [facility] Comment on above: Performed By: #### B MP ####[facility] ([facility])[address], [place] [address] VIR Creatinine [Mass/Vol] 0.38 mg/dL Low 0.40-1.00 [facility] Comment on above: Result Comment: METH OD TRACEABLE TO IDMS STANDARD Performed By: #### B MP ####[facility] ([facility])[address], [place] [address] VIR EGFR (CKD-EPI) NON-RACE DEPENDENT >^90 Normal >=60 [facility] Comment on above: Result Comment: Repo rted eGFR is based on theCKD-EPI 2020 equation that doesnot use a race coefficient. Performed By: #### B MP ####[facility] ([facility])[address], [place] [address] VIR Glucose [Mass/Vol] 92 mg/dL Normal 65-99 [facility] Comment on above: Performed By: #### B MP ####[facility] ([facility])[address], [place] [address] VIR Potassium [Moles/Vol] 4.0 mmol/L Normal 3.5-5.0 [facility] Comment on above: Performed By: #### B MP ####[facility] ([facility])[address], [place] [address] VIR Sodium [Moles/Vol] 136 mmol/L Normal 134-146 [facility] Comment on above: Performed By: #### B MP ####[facility] ([facility])[address], [place] [address] VIR Urea nitrogen [Mass/Vol] 12 mg/dL Normal 5-23 [facility] Comment on above: Performed By: #### B MP ####[facility] ([facility])[address], [place] [address] VIR BEDSIDE GLUCOSEon 06-06-2024 Glucose [Mass/Vol] 110 mg/dL High 65-99 [facility] Comment on above: Performed By: #### B EDG ####[facility] ([facility])[address] [facility] [place] [address] VIR Glucose [Mass/Vol] 121 mg/dL High 65-99 [facility] Comment on above: Performed By: #### B EDG ####[facility] ([facility])[address] [facility] [place] [address] VIR Glucose [Mass/Vol] 122 mg/dL High 65-99 [facility] Comment on above: Performed By: #### B EDG ####[facility] ([facility])[address] [facility] [place] [address] VIR CBC WITH AUTO DIFFERENTIALon 06-06-2024 Band form neutrophils/100 WBC (Bld) 3 % Normal [facility] Comment on above: Result Comment: This is an appended report. These results have been appended to a previously preliminary verified report. Performed By: #### C BCA ####[facility] ([facility])[address], [place] [address] VIR CELLAVISION DIFFERENTIAL TYPE CELLAVISION DIFFERENTIAL Normal [facility] Comment on above: Result Comment: This is an appended report. These results have been appended to a previously preliminary verified report. Performed By: #### C BCA ####[facility] ([facility])[address], [place] [address] VIR CELLAVISION HYPOCHROMIA IN BLOOD BY LIGHT MICROSCOPY 1+ Normal [facility] Comment on above: Result Comment: This is an appended report. These results have been appended to a previously preliminary verified report. Performed By: #### C BCA ####[facility] ([facility])[address], [place] [address] VIR CELLAVISION LYMPHOCYTES ABSOLUTE COUNT (10*3/UL) BY MANUAL COUNT 2.0 10*3/uL Normal [facility] Comment on above: Result Comment: This is an appended report. These results have been appended to a previously preliminary verified report. Performed By: #### C BCA ####[facility] ([facility])[address], [place] [address] VIR CELLAVISION LYMPHOCYTES RELATIVE PERCENT BY MANUAL COUNT 19 % Normal [facility] Comment on above: Result Comment: This is an appended report. These results have been appended to a previously preliminary verified report. Performed By: #### C BCA ####[facility] ([facility])[address], [place] [address] VIR CELLAVISION METAMYELOCYTES RELATIVE PERCENT BY MANUAL COUNT 1 % Normal [facility] Comment on above: Result Comment: This is an appended report. These results have been appended to a previously preliminary verified report. Performed By: #### C BCA ####[facility] ([facility])[address], [place] [address] VIR CELLAVISION MONOCYTES ABSOLUTE COUNT (10*3/UL) IN BLOOD BY MANUAL COUNT 0.3 10*3/uL Normal [facility] Comment on above: Result Comment: This is an appended report. These results have been appended to a previously preliminary verified report. Performed By: #### C BCA ####[facility] ([facility])[address], [place] [address] VIR CELLAVISION MONOCYTES RELATIVE PERCENT BY MANUAL COUNT 3 % Normal [facility] Comment on above: Result Comment: This is an appended report. These results have been appended to a previously preliminary verified report. Performed By: #### C BCA ####[facility] ([facility])[address], [place] [address] VIR CELLAVISION MYELOCYTE RELATIVE PERCENT BY MANUAL COUNT 3 % Normal [facility] Comment on above: Result Comment: This is an appended report. These results have been appended to a previously preliminary verified report. Performed By: #### C BCA ####[facility] ([facility])[address], [place] [address] VIR CELLAVISION NEUTROPHILS ABSOLUTE COUNT BY MANUAL COUNT 7.8 10*3/uL Normal [facility] Comment on above: Result Comment: This is an appended report. These results have been appended to a previously preliminary verified report. Performed By: #### C BCA ####[facility] ([facility])[address], [place] [address] VIR CELLAVISION NEUTROPHILS RELATIVE PERCENT BY MANUAL COUNT 71 % Normal [facility] Comment on above: Result Comment: This is an appended report. These results have been appended to a previously preliminary verified report. Performed By: #### C BCA ####[facility] ([facility])[address], [place] [address] VIR CELLAVISION POLYCHROMASIA IN BLOOD BY LIGHT MICROSCOPY 1+ Normal [facility] Comment on above: Result Comment: This is an appended report. These results have been appended to a previously preliminary verified report. Performed By: #### C BCA ####[facility] ([facility])[address], [place] [address] VIR Erythrocyte distribution width (RBC) [Ratio] 16.1 % High 11.5-15 [facility] Comment on above: Performed By: #### C BCA ####[facility] ([facility])[address], [place] [address] VIR Hematocrit (Bld) [Volume fraction] 22.5 % Low 35-47 [facility] Comment on above: Performed By: #### C BCA ####[facility] ([facility])[address], [place] [address] VIR Hemoglobin (Bld) [Mass/Vol] 7.7 g/dL Low 11.7-15.5 [facility] Comment on above: Performed By: #### C BCA ####[facility] ([facility])[address], [place] [address] VIR MCH (RBC) [Entitic mass] 31.0 pg Normal 27-34 [facility] Comment on above: Performed By: #### C BCA ####[facility] ([facility])[address], [place] [address] VIR MCHC (RBC) [Mass/Vol] 34.1 g/dL Normal 32-36 [facility] Comment on above: Performed By: #### C BCA ####[facility] ([facility])[address], [place] [address] VIR MCV (RBC) [Entitic vol] 91 fL Normal 80-100 [facility] Comment on above: Performed By: #### C BCA ####[facility] ([facility])[address], [place] [address] VIR Platelet mean volume (Bld) [Entitic vol] 9.0 fL Normal 7-12 [facility] Comment on above: Performed By: #### C BCA ####[facility] ([facility])[address], [place] [address] VIR Platelets (Bld) [#/Vol] 152 10*3/uL Normal 150-450 [facility] Comment on above: Performed By: #### C BCA ####[facility] ([facility])[address], [place] [address] VIR RBC COUNT 2.48 X10E12/L Low 3.8-5.2 [facility] Comment on above: Performed By: #### C BCA ####[facility] ([facility])[address], [place] [address] VIR WBC (Bld) [#/Vol] 10.6 10*3/uL Normal 4-11 [facility] Comment on above: Performed By: #### C BCA ####[facility] ([facility])[address], [place] [address] VIR IONIZED CALCIUMon 06-06-2024 IONIZED CALCIUM ICA IONIZED CALCIUM Cancelled Normal [facility] IONIZED CALCIUM - ICAN 4.7 mg/dL Normal 4.5-5.3 [facility] Comment on above: Performed By: #### I CA ####[facility] ([facility])[address], [place] [address] VIR IONIZED MAGNESIUMon 06-07-19 IONIZED MAGNESIUM IMAG IONIZED MAGNESI UM Cancelled Normal [facility] Magnesium [Moles/Vol] 0.31 mmol/L Low 0.45-0.74 [facility] Comment on above: Performed By: #### I MAG ####[facility] ([facility])[address], [place] [address] VIR MAGNESIUMon 06-06-2024 MAGNESIUM MG MAGNESIUM Cancelled Normal [facility] PHOSPHORUSon 06-06-2024 PHOSPHORUS PHOS PHOSPHORUS Cancelled Normal [facility] BASIC METABOLIC PANLon 06-05 Anion gap [Moles/Vol] 7 mmol/L Normal 5-15 [facility] Comment on above: Performed By: #### B TALI, , CBCA, 2777-1 ####[facility] ([id number])[address], [place] [address] Calcium [Mass/Vol] 6.7 mg/dL Critically low 8.5-10.5 [place] Comment on above: Performed By: #### B TALI, , CBCA, 2777-1 ####[facility] ([id number])[address], [place] [address] Chloride [Moles/Vol] 104 mmol/L Normal 98-109 [facility] Comment on above: Performed By: #### B TALI, , CBCA, 2777-1 ####[facility] ([id number])[address], [place] [address] CO2 [Moles/Vol] 25 mmol/L Normal 22-32 [facility] Comment on above: Performed By: #### B TALI, , CBCA, 2777- ####[facility] ([id number])[address] [address] [address] Creatinine [Mass/Vol] 0.32 mg/dL Low 0.40-1.00 [facility] Comment on above: Result Comment: METH OD TRACEABLE TO IDMS STANDARD Performed By: #### B TALI, , CBCA, 7- ####[facility] ([id number])[address] [address] [address] eGFR (CKD-EPI) NON-RACE DEPENDENT >90 Normal >59 [facility] Comment on above: Result Comment: Repo rted eGFR is based on theCKD-EPI 2020 equation that doesnot use a race coefficient. Performed By: #### Leora CESAR, , CBCA, 7- ####[facility] ([id number])[address] [address] [address] Glucose [Mass/Vol] 122 mg/dL High 65-99 [facility] Comment on above: Performed By: #### Leora CESAR, , CBCA, 2777- ####[facility] ([id number])[address] [address] [address] Potassium [Moles/Vol] 3.5 mmol/L Normal 3.5-5.0 [facility] Comment on above: Performed By: #### B TALI, , CBCA, 2777- ####[facility] ([id number])[address] [address] [address] Sodium [Moles/Vol] 136 mmol/L Normal 134-146 [facility] Comment on above: Performed By: #### B TALI, , CBCA, 2777- ####[facility] ([id number])[address] [place] [address] Urea nitrogen [Mass/Vol] 11 mg/dL Normal 5-23 [facility] Comment on above: Performed By: #### [place], [address]-3, CBCA, 2777-1 ####[facility] ([id number])[address] [address] CBC AND AUTO DIFFon 06-06-19 25 Band form neutrophils/100 WBC (Bld) 3.0 % Normal [facility] Comment on above: Performed By: #### C BCA ####[facility] ([id number])[address] [address] Eosinophils (Bld) [#/Vol] 0.1 10*3/uL Normal 0.0-0.4 [facility] Comment on above: Performed By: #### C BCA ####[facility] ([id number])[address] [address] [place] [address] Eosinophils/100 WBC (Bld) 1.0 % Normal [facility] Comment on above: Performed By: #### C BCA ####[facility] ([id number])[address] [address] [place] [id number] Erythrocyte distribution width (RBC) [Ratio] 16.5 % High 11.5-15.0 [facility] Comment on above: Performed By: #### C BCA ####[facility] ([id number])2129 [address] [address] [place] [id number] Hematocrit (Bld) [Volume fraction] 21.7 % Low 35-47 [facility] Comment on above: Performed By: #### C BCA ####[facility] ([id number])0 [address] [address] [place] [id number] Hemoglobin (Bld) [Mass/Vol] 7.2 g/dL Low 11.7-15.5 [facility] Comment on above: Performed By: #### C BCA ####[facility] ([id number])0 [address] [place] [address] Lymphocytes (Bld) [#/Vol] 0.9 10*3/uL Low 1.0-3.5 [facility] Comment on above: Performed By: #### C BCA ####[facility] ([id number])[address] [place] [address] Lymphocytes/100 WBC (Bld) 8.0 % Normal [facility] Comment on above: Performed By: #### C BCA ####[facility] ([id number])[address] [place] [address] MCH (RBC) [Entitic mass] 30.1 pg Normal 27-34 [facility] Comment on above: Performed By: #### C BCA ####[facility] ([id number])[address], [address] [place] [place] [address] MCHC (RBC) [Mass/Vol] 33.4 g/dL Normal 32-36 [facility] Comment on above: Performed By: #### C BCA ####[facility] ([id number])[address] [place] [place] [address] MCV (RBC) [Entitic vol] 90 fL Normal 80-100 [facility] Comment on above: Performed By: #### C BCA ####[facility] ([id number])[address] [place] [place] [address] Monocytes (Bld) [#/Vol] 1.0 10*3/uL High 0-0.9 [facility] Comment on above: Performed By: #### C BCA ####[facility] ([id number])[address] [address] [place] [place] [address] Monocytes/100 WBC (Bld) 9.0 % Normal [facility] Comment on above: Performed By: #### C BCA ####[facility] ([id number])[address], [address], [place] [address] MYELOCYTE 3.0 % Normal [facility] Comment on above: Performed By: #### C BCA ####[facility] ([id number])[address], [address] [place] [address] Neutrophils (Bld) [#/Vol] 9.1 10*3/uL High 1.5-6.6 [facility] Comment on above: Performed By: #### C BCA ####[facility] ([id number])[address] [place] [address] Platelet mean volume (Bld) [Entitic vol] 8.9 fL Normal 7-12 [facility] Comment on above: Performed By: #### C BCA ####[facility] ([id number])[address] [place] [address] Platelets (Bld) [#/Vol] 141 10*3/uL Low 150-450 [facility] Comment on above: Performed By: #### C BCA ####[facility] ([id number])[address], [address] [place] [address] POLYCHROMASIA 1+ Abnormal NONE [facility] Comment on above: Performed By: #### C BCA ####[facility] ([id number])[address], [address], [place] [address] RBC COUNT 2.40 X10E12/L Low 3.80-5.20 [facility] Comment on above: Performed By: #### C BCA ####[facility] ([id number])[address], [address], [place] [address] SEG NEUTROPHIL 76.0 % Normal [facility] Comment on above: Performed By: #### C BCA ####[facility] ([id number])[address], [address] [place] [address] WBC (Bld) [#/Vol] 11.4 10*3/uL High 4.0-11.0 [facility] Comment on above: Performed By: #### C BCA ####[facility] ([id number])[address], [address] [place] [place] [address] ABSOLUTE BASOPHIL 0.0 X10E9/L Normal 0.0-0.2 [facility] Comment on above: Performed By: #### B TALI, , CBCA, 7- ####[facility] ([id number])[address] [place] [address] ABSOLUTE NEUTROPHIL 7.4 X10E9/L High 1.5-6.6 [facility] Comment on above: Performed By: #### B TALI, , CBCA, 2776- ####[facility] ([id number])[address], [address] [place] [address] Basophils/100 WBC (Bld) 0.4 % Normal [facility] Comment on above: Performed By: #### B TALI, , CBCA, 2776- ####[facility] ([id number])[address], [address] [place] [address] Eosinophils (Bld) [#/Vol] 0.1 10*3/uL Normal 0.0-0.4 [facility] Comment on above: Performed By: #### B TALI, , CBCA, 2776- ####[facility] ([id number])[address], [address] [place] [address] Eosinophils/100 WBC (Bld) 0.9 % Normal [facility] Comment on above: Performed By: #### B TALI, , CBCA, 2776-02 ####[facility] ([id number])[address] [address] [place] [address] Erythrocyte distribution width (RBC) [Ratio] 16.5 % High 11.5-15.0 [facility] Comment on above: Performed By: #### B TALI, , CBCA, 2776-02 ####[facility] ([id number])[address] [address] [place] [address] Hematocrit (Bld) [Volume fraction] 21.2 % Low 35-47 [facility] Comment on above: Performed By: #### Leora CESAR, , CBCA, 2776-02 ####[facility] ([id number])[address], [address] [place] [address] Hemoglobin (Bld) [Mass/Vol] 7.3 g/dL Low 11.7-15.5 [facility] Comment on above: Performed By: #### B TALI, , CBCA, 2776-02 ####[facility] ([id number])[address] [address] [place] [address] Lymphocytes (Bld) [#/Vol] 2.1 10*3/uL Normal 1.0-3.5 [facility] Comment on above: Performed By: #### B TALI, , CBCA, 2776-02 ####[facility] ([id number])[address] [address] [address] Lymphocytes/100 WBC (Bld) 20.4 % Normal [facility] Comment on above: Performed By: #### B TALI, , CBCA, 2776-02 ####[facility] ([id number])[address] [address] [place] [place] [address] MCH (RBC) [Entitic mass] 31.0 pg Normal 27-34 [facility] Comment on above: Performed By: #### B TALI, , CBCA, 2776-02 ####[facility] ([id number])[address], [address], [place] [address] MCHC (RBC) [Mass/Vol] 34.4 g/dL Normal 32-36 [facility] Comment on above: Performed By: #### B TALI, , CBCA, 2776-02 ####[facility] ([id number])[address], [address] [address] MCV (RBC) [Entitic vol] 90 fL Normal 80-100 [facility] Comment on above: Performed By: #### Leora CESAR, , CBCA, 2776-02 ####[facility] ([id number])[address] [address], [place] [address] Monocytes (Bld) [#/Vol] 0.7 10*3/uL Normal 0-0.9 [facility] Comment on above: Performed By: #### Leora CESAR, , CBCA, 2776-02 ####[facility] ([id number])[address] [address] [place] [address] Monocytes/100 WBC (Bld) 6.6 % Normal [facility] Comment on above: Performed By: #### Leora CESAR, , CBCA, 2776-02 ####[facility] ([id number])[address] [address], [place] [address] Neutrophils/100 WBC (Bld) 71.7 % Normal [facility] Comment on above: Performed By: #### Leora CESAR, , CBCA, 2776-02 ####[facility] ([id number])[address] [address] Platelet mean volume (Bld) [Entitic vol] 9.0 fL Normal 7-12 [facility] Comment on above: Performed By: #### B TALI, 22936-4, CBCA, 2777-1 ####[facility] ([id number])[address], [address], [place] [address] Platelets (Bld) [#/Vol] 156 10*3/uL Normal 150-450 [facility] Comment on above: Performed By: #### B TALI, , CBCA, 2776- ####[facility] ([id number])[address] [address] RBC COUNT 2.36 X10E12/L Low 3.80-5.20 [facility] Comment on above: Performed By: #### B TALI, , CBCA, 7- ####[facility] ([id number])[address], [address] [address] WBC (Bld) [#/Vol] 10.3 10*3/uL Normal 4.0-11.0 [facility] Comment on above: Performed By: #### B TALI, , CBCA, 2777-1 ####[facility] ([id number])[address] [address] [address] Calcium.ionized (Bld) [Mass/ Vol]on 06-05-2024 IONIZED CALCIUM 4.6 mg/dL Normal 4.5-5.3 [facility] Comment on above: Performed By: #### 3 8230-9 ####[facility] ([id number])[address], [address] [place] [place] [address] IONIZED CALCIUM 4.0 mg/dL Low 4.5-5.3 [facility] Comment on above: Performed By: #### 7 3572-0, 65988-5 ####[facility] ([id number])[address], [address], [place] [address] Glucose Glucometer (BldC) [M ass/Vol]on 06-05-2024 Glucose [Mass/Vol] 101 mg/dL High 65-99 [facility] Glucose [Mass/Vol] 98 mg/dL Normal 65-99 [facility] Glucose [Mass/Vol] 115 mg/dL High 65-99 [facility] MAGNESIUMon 06-05-2024 Magnesium [Mass/Vol] 2.6 mg/dL Normal 1.8-2.6 [facility] Comment on above: Performed By: #### B TALI, 70398-6, CBCA, 2777-1 ####[facility] ([id number])[address], [address] [place] [address] Magnesium Ionized ISE (Bld) [Moles/Vol]on 06-05-2024 Magnesium [Moles/Vol] 0.79 mmol/L High 0.45-0.74 [facility] Comment on above: Result Comment: NEW REFERENCE RANGE Performed By: #### 7 3572-0, 59079-3 ####[facility] ([id number])[address], [address] [place] [address] PHOSPHORUSon 06-05-2024 Phosphate [Mass/Vol] 3.2 mg/dL Normal 2.4-4.9 [facility] Comment on above: Performed By: #### B TALI, 73932-6, CBCA, 2777-1 ####[facility] ([id number])[address], [address], [place] [address] POTASSIUMon 06-05-2024 Potassium [Moles/Vol] 4.0 mmol/L Normal 3.5-5.0 [facility] Comment on above: Performed By: #### 2 823-3 ####[facility] ([id number])[address], [address] [place] [address] ARTERIAL BLOOD GASon 025 EDUARDO'S TEST Normal [facility] Comment on above: Performed By: #### A BG ####[facility] ([id number])[address] [place] [address] BASE,DEFICIT 1.0 MMOL/L Normal 0.0-2.0 [facility] Comment on above: Performed By: #### A BG ####[facility] ([id number])[address] [place] [address] Body temperature 98.6 [degF] Normal 37.0 [facility] Comment on above: Performed By: #### A BG ####[facility] ([id number])[address] [place] [address] HCO3 (Bld) [Moles/Vol] 22.8 mmol/L Normal 22-26 [facility] Comment on above: Performed By: #### A BG ####[facility] ([id number])[address] [place] [address] INSP. O2 CONC. 28 % Normal [facility] Comment on above: Performed By: #### A BG ####[facility] ([id number])[address] [place] [address] Oxygen (Bld) [Partial pressure] 76 mm[Hg] Low 80-100 [facility] Comment on above: Performed By: #### A BG ####[facility] ([id number])[address] [place] [address] Oxygen saturation in Blood 96.0 % Normal >90 [facility] Comment on above: Performed By: #### A BG ####[facility] ([id number])[address] [place] [address] OXYGEN SOURCE NC [facility] Comment on above: Performed By: #### A BG ####[facility] ([id number])[address] [place] [address] PCO2 32.0 MMHG Low 35-45 [facility] Comment on above: Performed By: #### A BG ####[facility] ([id number])[address] [place] [address] pH (Bld) 7.460 [pH] High 7.350-7.450 [facility] Comment on above: Performed By: #### A BG ####[facility] ([id number])[address] [place] [address] SAMPLE SITE LRad [facility] Comment on above: Performed By: #### A BG ####[facility] ([id number])[address] [place] [address] SAMPLE TYPE ARTERIAL [facility] Comment on above: Performed By: #### A BG ####[facility] ([id number])[address] [place] [address] CBC AND AUTO DIFFon 25-20 25 Band form neutrophils/100 WBC (Bld) 2.0 % Normal [facility] Comment on above: Performed By: #### C BCA ####[facility] ([id number])[address] [facility], [address] [address] Erythrocyte distribution width (RBC) [Ratio] 16.3 % High 11.5-15.0 [facility] Comment on above: Performed By: #### C BCA ####[facility] ([id number])0 [facility], [address] [address] Hematocrit (Bld) [Volume fraction] 22.4 % Low 35-47 [facility] Comment on above: Performed By: #### C BCA ####[facility] ([id number])0 [facility], [address] [address] Hemoglobin (Bld) [Mass/Vol] 7.5 g/dL Low 11.7-15.5 [facility] Comment on above: Performed By: #### C BCA ####[facility] ([id number])[address] [place] [place] [address] Lymphocytes (Bld) [#/Vol] 1.7 10*3/uL Normal 1.0-3.5 [facility] Comment on above: Performed By: #### C BCA ####[facility] ([id number])[address] [address] Lymphocytes/100 WBC (Bld) 15.0 % Normal [facility] Comment on above: Performed By: #### C BCA ####[facility] ([id number])[address] [place] [address] MCH (RBC) [Entitic mass] 29.6 pg Normal 27-34 [facility] Comment on above: Performed By: #### C BCA ####[facility] ([id number])[address] [place] [place] [address] MCHC (RBC) [Mass/Vol] 33.6 g/dL Normal 32-36 [facility] Comment on above: Performed By: #### C BCA ####[facility] ([id number])[address] [place] [place] [address] MCV (RBC) [Entitic vol] 88 fL Normal 80-100 [facility] Comment on above: Performed By: #### C BCA ####[facility] ([id number])[address] [place] [place] [address] Monocytes (Bld) [#/Vol] 0.7 10*3/uL Normal 0-0.9 [facility] Comment on above: Performed By: #### C BCA ####[facility] ([id number])[address] [place] [place] [address] Monocytes/100 WBC (Bld) 6.0 % Normal [facility] Comment on above: Performed By: #### C BCA ####[facility] ([id number])[address] [place] [address] MYELOCYTE 1.0 % Normal [facility] Comment on above: Performed By: #### C BCA ####[facility] ([id number])[address] [place] [address] Neutrophils (Bld) [#/Vol] 8.9 10*3/uL High 1.5-6.6 [facility] Comment on above: Performed By: #### C BCA ####[facility] ([id number])[address] [place] [place] [address] NUCLEATED RBC 1.0 /100 WBC Normal 0.0-1.0 [facility] Comment on above: Performed By: #### C BCA ####[facility] ([id number])[address] [place] [place] [address] Platelet mean volume (Bld) [Entitic vol] 8.8 fL Normal 7-12 [facility] Comment on above: Performed By: #### C BCA ####[facility] ([id number])[address] [place] [place] [address] Platelets (Bld) [#/Vol] 165 10*3/uL Normal 150-450 [facility] Comment on above: Performed By: #### C BCA ####[facility] ([id number])[address] [place] [place] [address] POLYCHROMASIA 1+ Abnormal NONE [facility] Comment on above: Performed By: #### C BCA ####[facility] ([id number])[address] [address] RBC COUNT 2.55 X10E12/L Low 3.80-5.20 [facility] Comment on above: Performed By: #### C BCA ####[facility] ([id number])[address] [address] SEG NEUTROPHIL 76.0 % Normal [facility] Comment on above: Performed By: #### C BCA ####[facility] ([id number])[address] [place] [place] [address] WBC (Bld) [#/Vol] 11.4 10*3/uL High 4.0-11.0 [facility] Comment on above: Performed By: #### C BCA ####[facility] ([id number])[address], [place] [address] ABSOLUTE BASOPHIL 0.0 X10E9/L Normal 0.0-0.2 [facility] Comment on above: Performed By: #### 2 777-1, CBCA, CMP, ####[facility] ([id number])[address] [place] [place] [address] ABSOLUTE NEUTROPHIL 9.8 X10E9/L High 1.5-6.6 [facility] Comment on above: Performed By: #### 2 777-1, CBCA, CMP, ####[facility] ([id number])[address] [place] [place] [address] Basophils/100 WBC (Bld) 0.2 % Normal [facility] Comment on above: Performed By: #### 2 777-1, CBCA, CMP, ####[facility] ([id number])[address] [place] [place] [address] Eosinophils (Bld) [#/Vol] 0.0 10*3/uL Normal 0.0-0.4 [facility] Comment on above: Performed By: #### 2 777-1, CBCA, CMP, ####[facility] ([id number])[address] [place] [address] Eosinophils/100 WBC (Bld) 0.1 % Normal [facility] Comment on above: Performed By: #### 2 777-1, CBCA, CMP, ####[facility] ([id number])[address] [place] [place] [address] Erythrocyte distribution width (RBC) [Ratio] 16.1 % High 11.5-15.0 [facility] Comment on above: Performed By: #### 2 777-1, CBCA, CMP, ####[facility] ([id number])[address] [address] [place] [address] Hematocrit (Bld) [Volume fraction] 23.7 % Low 35-47 [facility] Comment on above: Performed By: #### 2 777-1, CBCA, CMP, ####[facility] ([id number])[address] [address] [address] Hemoglobin (Bld) [Mass/Vol] 8.0 g/dL Low 11.7-15.5 [facility] Comment on above: Performed By: #### 2 777-1, CBCA, CMP, ####[facility] ([id number])[address] [address] [place] [address] Lymphocytes (Bld) [#/Vol] 0.9 10*3/uL Low 1.0-3.5 [facility] Comment on above: Performed By: #### 2 777-1, CBCA, CMP, ####[facility] ([id number])[address] [place] [place] [address] Lymphocytes/100 WBC (Bld) 7.8 % Normal [facility] Comment on above: Performed By: #### 2 777-1, CBCA, CMP, ####[facility] ([id number])[address] [address] MCH (RBC) [Entitic mass] 30.2 pg Normal 27-34 [facility] Comment on above: Performed By: #### 2 777-1, CBCA, CMP, ####[facility] ([id number])[address] [address] MCHC (RBC) [Mass/Vol] 33.8 g/dL Normal 32-36 [facility] Comment on above: Performed By: #### 2 777-1, CBCA, CMP, ####[facility] ([id number])[address] [address] MCV (RBC) [Entitic vol] 89 fL Normal 80-100 [facility] Comment on above: Performed By: #### 2 777-1, CBCA, CMP, ####[facility] ([id number])[address] [address] [place] [address] Monocytes (Bld) [#/Vol] 0.4 10*3/uL Normal 0-0.9 [facility] Comment on above: Performed By: #### 2 777-1, CBCA, CMP, ####[facility] ([id number])[address] [place] [address] Monocytes/100 WBC (Bld) 3.9 % Normal [facility] Comment on above: Performed By: #### 2 777-1, CBCA, CMP, ####[facility] ([id number])[address] [place] [address], [place] [address] Neutrophils/100 WBC (Bld) 88.0 % Normal [facility] Comment on above: Performed By: #### 2 777-1, CBCA, CMP, ####[facility] ([id number])[address] [place] [place] [address] Platelet mean volume (Bld) [Entitic vol] 8.9 fL Normal 7-12 [facility] Comment on above: Performed By: #### 2 777-1, CBCA, CMP, 25770-6 ####[facility] ([id number])[address] [place] [place] [address] Platelets (Bld) [#/Vol] 166 10*3/uL Normal 150-450 [facility] Comment on above: Performed By: #### 2 777-1, CBCA, CMP, 02144-7 ####[facility] ([id number])[address] [place] [address] RBC COUNT 2.66 X10E12/L Low 3.80-5.20 [facility] Comment on above: Performed By: #### 2 777-1, CBCA, CMP, 69414-1 ####[facility] ([id number])[address] [place] [place] [address] WBC (Bld) [#/Vol] 11.2 10*3/uL High 4.0-11.0 [facility] Comment on above: Performed By: #### 2 777-1, CBCA, CMP, 09893-4 ####[facility] ([id number])[address] [place] [place] [address] COMPREHENSIVE METABOLIC PANE Santy 06-04-2024 Albumin [Mass/Vol] 3.0 g/dL Low 3.2-5.3 [facility] Comment on above: Performed By: #### 2 777-1, CBCA, CMP, 52169-6 ####[facility] ([id number])[address] [place] [place] [address] ALP [Catalytic activity/Vol] 40 U/L Normal 39-130 [facility] Comment on above: Performed By: #### 2 777-1, CBCA, CMP, 07511-7 ####[facility] ([id number])[address], [place] [address] ALT [Catalytic activity/Vol] 10 U/L Normal 0-31 [facility] Comment on above: Performed By: #### 2 777-1, CBCA, CMP, 71172-0 ####[facility] ([id number])[address], [place] [address] Anion gap [Moles/Vol] 7 mmol/L Normal 5-15 [facility] Comment on above: Performed By: #### 2 777-1, CBCA, CMP, 41017-0 ####[facility] ([id number])[address], [place] [address] AST [Catalytic activity/Vol] 16 U/L Normal 0-41 [facility] Comment on above: Performed By: #### 2 777-1, CBCA, CMP, 03813-3 ####[facility] ([id number])[address], [place] [address] Bilirubin [Mass/Vol] 0.3 mg/dL Normal 0.3-1.2 [facility] Comment on above: Performed By: #### 2 777-1, CBCA, CMP, ####[facility] ([id number])[address], [place] [address] Calcium [Mass/Vol] 6.2 mg/dL Critically low 8.5-10.5 [place] Comment on above: Performed By: #### 2 777-1, CBCA, CMP, 44321-2 ####[facility] ([id number])[address], [place] [address] Chloride [Moles/Vol] 107 mmol/L Normal 98-109 [facility] Comment on above: Performed By: #### 2 777-1, CBCA, CMP, ####[facility] ([id number])[address] [place] [address] CO2 [Moles/Vol] 23 mmol/L Normal 22-32 [facility] Comment on above: Performed By: #### 2 777-1, CBCA, CMP, ####[facility] ([id number])[address], [place] [address] Creatinine [Mass/Vol] 0.33 mg/dL Low 0.40-1.00 [facility] Comment on above: Result Comment: METH OD TRACEABLE TO IDMS STANDARD Performed By: #### 2 777-1, CBCA, CMP, ####[facility] ([id number])[address] [address] [address] eGFR (CKD-EPI) NON-RACE DEPENDENT >90 Normal >59 [facility] Comment on above: Result Comment: Repo rted eGFR is based on theCKD-EPI 2020 equation that doesnot use a race coefficient. Performed By: #### 2 777-1, CBCA, CMP, ####[facility] ([id number])[address] [address] [address] Glucose [Mass/Vol] 186 mg/dL High 65-99 [facility] Comment on above: Performed By: #### 2 777-1, CBCA, CMP, ####[facility] ([id number])[address] [address] [place] [address] Potassium [Moles/Vol] 4.2 mmol/L Normal 3.5-5.0 [facility] Comment on above: Performed By: #### 2 777-1, CBCA, CMP, ####[facility] ([id number])[address] [place] [address] Protein [Mass/Vol] 5.1 g/dL Low 6.0-8.0 [facility] Comment on above: Performed By: #### 2 777-1, CBCA, CMP, 45638-2 ####[facility] ([id number])[address], [address] [place] [address] Sodium [Moles/Vol] 137 mmol/L Normal 134-146 [facility] Comment on above: Performed By: #### 2 777-1, CBCA, CMP, 72221-7 ####[facility] ([id number])[address], [address] [place] [address] Urea nitrogen [Mass/Vol] 5 mg/dL Normal 5-23 [facility] Comment on above: Performed By: #### 2 777-1, CBCA, CMP, 00791-1 ####[facility] ([id number])[address], [address] [place] [address] Calcium.ionized (Bld) [Mass/ Vol]on 06-04-2024 IONIZED CALCIUM 3.7 mg/dL Low 4.5-5.3 [facility] Comment on above: Performed By: #### 7 3572-0, 46335-8 ####[facility] ([id number])[address], [address] [place] [address] Glucose Glucometer (BldC) [M ass/Vol]on 06-04-2024 Glucose [Mass/Vol] 131 mg/dL High 65-99 [facility] Glucose [Mass/Vol] 135 mg/dL High 65-99 [facility] Glucose [Mass/Vol] 155 mg/dL High 65-99 [facility] Glucose [Mass/Vol] 165 mg/dL High 65-99 [facility] MAGNESIUMon 04-25-2025 Magnesium [Mass/Vol] 5.7 mg/dL Critically high 1.8-2.6 [facility] Comment on above: Performed By: #### 2 777-1, CBCA, CMP, 08158-5 ####[facility] ([id number])[address], [address] [place] [address] Magnesium Ionized ISE (Bld) [Moles/Vol]on 06-04-2024 Magnesium [Moles/Vol] 1.50 mmol/L High 0.45-0.74 [facility] Comment on above: Result Comment: NEW REFERENCE RANGE Performed By: #### 7 3572-0, 80769-5 ####[facility] ([id number])[address], [address] [place] [address] PHOSPHORUSon 06-04-2024 Phosphate [Mass/Vol] 3.1 mg/dL Normal 2.4-4.9 [facility] Comment on above: Performed By: #### 2 777-1, CBCA, CMP, 38790-6 ####[facility] ([id number])[address], [address] [place] [address] XR CHEST 1 VWon 06-04-2024 XR CHEST 1 VW Normal [facility] ARTERIAL BLOOD GASon 025 EDUARDO'S TEST Normal [facility] Comment on above: Performed By: #### A BG ####[facility] ([id number])[address] [place] [address] BASE,DEFICIT 12.0 MMOL/L High 0.0-2.0 [facility] Comment on above: Performed By: #### A BG ####[facility] ([id number])[address] [place] [address] Body temperature 98.6 [degF] Normal 37.0 [facility] Comment on above: Performed By: #### A BG ####[facility] ([id number])[address] [place] [address] HCO3 (Bld) [Moles/Vol] 12.6 mmol/L Low 22-26 [facility] Comment on above: Performed By: #### A BG ####[facility] ([id number])[address] [facility] [place] [address] Oxygen (Bld) [Partial pressure] 78 mm[Hg] Low 80-100 [facility] Comment on above: Performed By: #### A BG ####[facility] ([id number])[address] [facility] [place] [address] Oxygen saturation in Blood 95.0 % Normal >90 [facility] Comment on above: Performed By: #### A BG ####[facility] ([id number])[address] [facility] [place] [address] OXYGEN SOURCE [place] [facility] Comment on above: Performed By: #### A BG ####[facility] ([id number])[address] [facility] [place] [address] PCO2 23.4 MMHG Low 35-45 [facility] Comment on above: Performed By: #### A BG ####[facility] ([id number])[address] [place] [address] pH (Bld) 7.339 [pH] Low 7.350-7.450 [facility] Comment on above: Performed By: #### A BG ####[facility] ([id number])[address] [place] [address] SAMPLE SITE Raven [facility] Comment on above: Performed By: #### A BG ####[facility] ([id number])[address] [facility] [place] [address] SAMPLE TYPE ARTERIAL [facility] Comment on above: Performed By: #### A BG ####[facility] ([id number])[address] [facility] [place] [address] BASIC METABOLIC PANLon 06-03 Anion gap [Moles/Vol] 12 mmol/L Normal 5-15 [facility] Comment on above: Performed By: #### 2 777-1, 34449-5, ILEANA, ####[facility] ([id number])[address] [address] Calcium [Mass/Vol] 5.8 mg/dL Critically low 8.5-10.5 [place] Comment on above: Performed By: #### 2 777-1, 74539-8, ILEANA, ####[facility] ([id number])[address] [address] Chloride [Moles/Vol] 109 mmol/L Normal 98-109 [facility] Comment on above: Performed By: #### 2 777-1, 31330-7, ILEANA, ####[facility] ([id number])[address], [address], [place] [address] CO2 [Moles/Vol] 17 mmol/L Low 22-32 [facility] Comment on above: Performed By: #### 2 777-1, 31867-7, ILEANA, ####[facility] ([id number])[address] [address] Creatinine [Mass/Vol] 0.39 mg/dL Low 0.40-1.00 [facility] Comment on above: Result Comment: METH OD TRACEABLE TO IDMS STANDARD Performed By: #### 2 777-1, 55434-0, ILEANA, ####[facility] ([id number])[address], [place] [address] eGFR (CKD-EPI) NON-RACE DEPENDENT >90 Normal >59 [facility] Comment on above: Result Comment: Repo rted eGFR is based on theCKD-EPI 2020 equation that doesnot use a race coefficient. Performed By: #### 2 777-1, 50007-7, BMP, ####[facility] ([id number])[address], [place] [address] Glucose [Mass/Vol] 197 mg/dL High 65-99 [facility] Comment on above: Performed By: #### 2 777-1, 11595-1, ILEANA, ####[facility] ([id number])[address], [place] [address] Potassium [Moles/Vol] 3.7 mmol/L Normal 3.5-5.0 [facility] Comment on above: Performed By: #### 2 777-1, 28784-3, BMP, ####[facility] ([id number])[address], [place] [address] Performed By: #### 2 823-3 ####[facility] ([id number])[address], [place] [address] Sodium [Moles/Vol] 138 mmol/L Normal 134-146 [facility] Comment on above: Performed By: #### 2 777-1, 62609-4, BMP, ####[facility] ([id number])[address], [place] [address] Urea nitrogen [Mass/Vol] 5 mg/dL Normal 5-23 [facility] Comment on above: Performed By: #### 2 777-1, 68594-7, BMP, ####[facility] ([id number])[address], [place] [address] Anion gap [Moles/Vol] 13 mmol/L Normal 5-15 [facility] Comment on above: Performed By: #### 2 777-1, CBCA, , BMP ####[facility] ([id number])[address] [place] [address] Calcium [Mass/Vol] 6.3 mg/dL Critically low 8.5-10.5 [place] Comment on above: Performed By: #### 2 777-1, CBCA, , BMP ####[facility] ([id number])[address] [address] Chloride [Moles/Vol] 108 mmol/L Normal 98-109 [facility] Comment on above: Performed By: #### 2 777-1, CBCA, , BMP ####[facility] ([id number])[address] [address] CO2 [Moles/Vol] 14 mmol/L Low 22-32 [facility] Comment on above: Performed By: #### 2 777-1, CBCA, , BMP ####[facility] ([id number])[address] [address] Creatinine [Mass/Vol] 0.44 mg/dL Normal 0.40-1.00 [facility] Comment on above: Result Comment: METH OD TRACEABLE TO IDMS STANDARD Performed By: #### 2 777-1, CBCA, , BMP ####[facility] ([id number])[address] [place] [address] eGFR (CKD-EPI) NON-RACE DEPENDENT >90 Normal >59 [facility] Comment on above: Result Comment: Repo rted eGFR is based on theCKD-EPI 2020 equation that doesnot use a race coefficient. Performed By: #### 2 777-1, CBCA, , BMP ####[facility] ([id number])[address] [address] Glucose [Mass/Vol] 134 mg/dL High 65-99 [facility] Comment on above: Performed By: #### 2 777-1, CBCA, , BMP ####[facility] ([id number])[address] [address] Potassium [Moles/Vol] 3.6 mmol/L Normal 3.5-5.0 [facility] Comment on above: Performed By: #### 2 777-1, CBCA, , BMP ####[facility] ([id number])[address] [place] [address] Sodium [Moles/Vol] 135 mmol/L Normal 134-146 [facility] Comment on above: Performed By: #### 2 777-1, CBCA, , BMP ####[facility] ([id number])[address] [address] [place] [address] Urea nitrogen [Mass/Vol] 7 mg/dL Normal 5-23 [facility] Comment on above: Performed By: #### 2 777-1, CBCA, , BMP ####[facility] ([id number])[address] [address] CBC AND AUTO DIFFon 04-24-20 25 Band form neutrophils/100 WBC (Bld) 2.0 % Normal [facility] Comment on above: Performed By: #### 1 4979-9, PINR, CBCA, 07090-3 ####[facility] ([id number])[address] [address] Erythrocyte distribution width (RBC) [Ratio] 16.1 % High 11.5-15.0 [facility] Comment on above: Performed By: #### 1 4979-9, PINR, CBCA, 84356-4 ####[facility] ([id number])[address] [address] Hematocrit (Bld) [Volume fraction] 25.1 % Low 35-47 [facility] Comment on above: Performed By: #### 1 4979-9, PINR, CBCA, 36423-0 ####[facility] ([id number])[address] [address] [place] [address] Hemoglobin (Bld) [Mass/Vol] 8.2 g/dL Low 11.7-15.5 [facility] Comment on above: Performed By: #### 1 4979-9, PINR, CBCA, 15142-8 ####[facility] ([id number])[address] [address] [place] [address] Lymphocytes (Bld) [#/Vol] 1.4 10*3/uL Normal 1.0-3.5 [facility] Comment on above: Performed By: #### 1 4979-9, PINR, CBCA, 18307-3 ####[facility] ([id number])[address] [place] [address] Lymphocytes/100 WBC (Bld) 9.0 % Normal [facility] Comment on above: Performed By: #### 1 4979-9, PINR, CBCA, 36331-0 ####[facility] ([id number])[address] [address] [place] [address], [place] [address] MCH (RBC) [Entitic mass] 29.5 pg Normal 27-34 [facility] Comment on above: Performed By: #### 1 4979-9, PINR, CBCA, 02054-9 ####[facility] ([id number])[address] [address] MCHC (RBC) [Mass/Vol] 32.5 g/dL Normal 32-36 [facility] Comment on above: Performed By: #### 1 4979-9, PINR, CBCA, 54796-8 ####[facility] ([id number])[address] [place] [address] MCV (RBC) [Entitic vol] 91 fL Normal 80-100 [facility] Comment on above: Performed By: #### 1 4979-9, PINR, CBCA, 88883-2 ####[facility] ([id number])[address], [address] [place] [address] Monocytes (Bld) [#/Vol] 0.6 10*3/uL Normal 0-0.9 [facility] Comment on above: Performed By: #### 1 4979-9, PINR, CBCA, 94278-3 ####[facility] ([id number])[address], [address] [place] [address] Monocytes/100 WBC (Bld) 4.0 % Normal [facility] Comment on above: Performed By: #### 1 4979-9, PINR, CBCA, 03827-7 ####[facility] ([id number])[address], [address] [place] [address] Neutrophils (Bld) [#/Vol] 13.3 10*3/uL High 1.5-6.6 [facility] Comment on above: Performed By: #### 1 4979-9, PINR, CBCA, 90999-8 ####[facility] ([id number])[address], [address] [place] [address], [place] [address] NUCLEATED RBC 1.0 /100 WBC Normal 0.0-1.0 [facility] Comment on above: Performed By: #### 1 4979-9, PINR, CBCA, 68250-0 ####[facility] ([id number])[address], [address] [place] [address], [place] [address] OVALOCYTE 1+ Abnormal NONE [facility] Comment on above: Performed By: #### 1 4979-9, PINR, CBCA, 33696-3 ####[facility] ([id number])[address], [place] [address] Platelet mean volume (Bld) [Entitic vol] 8.7 fL Normal 7-12 [facility] Comment on above: Performed By: #### 1 4979-9, PINR, CBCA, 55230-2 ####[facility] ([id number])[address], [place] [address] Platelets (Bld) [#/Vol] 166 10*3/uL Normal 150-450 [facility] Comment on above: Performed By: #### 1 4979-9, PINR, CBCA, 44087-4 ####[facility] ([id number])[address], [place] [address] RBC COUNT 2.77 X10E12/L Low 3.80-5.20 [facility] Comment on above: Performed By: #### 1 4979-9, PINR, CBCA, 32775-1 ####[facility] ([id number])[address], [place] [address] SEG NEUTROPHIL 85.0 % Normal [facility] Comment on above: Performed By: #### 1 4979-9, PINR, CBCA, 44303-7 ####[facility] ([id number])[address], [place] [address] STOMATOCYTE 1+ Abnormal NONE [facility] Comment on above: Performed By: #### 1 4979-9, PINR, CBCA, 43865-3 ####[facility] ([id number])[address], [place] [address] WBC (Bld) [#/Vol] 15.3 10*3/uL High 4.0-11.0 [facility] Comment on above: Performed By: #### 1 4979-9, PINR, CBCA, 71085-3 ####[facility] ([id number])[address], [place] [address] ABSOLUTE BASOPHIL 0.0 X10E9/L Normal 0.0-0.2 [facility] Comment on above: Performed By: #### 2 777-1, CBCA, , BMP ####[facility] ([id number])[address] [place] [address] ABSOLUTE NEUTROPHIL 11.0 X10E9/L High 1.5-6.6 [facility] Comment on above: Performed By: #### 2 777-1, CBCA, , BMP ####[facility] ([id number])[address] [place] [address] Basophils/100 WBC (Bld) 0.1 % Normal [facility] Comment on above: Performed By: #### 2 777-1, CBCA, , BMP ####[facility] ([id number])[address] [place] [address] Eosinophils (Bld) [#/Vol] 0.0 10*3/uL Normal 0.0-0.4 [facility] Comment on above: Performed By: #### 2 777-1, CBCA, , BMP ####[facility] ([id number])[address] [address] Eosinophils/100 WBC (Bld) 0.0 % Normal [facility] Comment on above: Performed By: #### 2 777-1, CBCA, , BMP ####[facility] ([id number])[address] [place] [address] Erythrocyte distribution width (RBC) [Ratio] 17.6 % High 11.5-15.0 [facility] Comment on above: Performed By: #### 2 777-1, CBCA, , BMP ####[facility] ([id number])[address] [address] [place] [address] Hematocrit (Bld) [Volume fraction] 22.4 % Low 35-47 [facility] Comment on above: Performed By: #### 2 777-1, CBCA, , BMP ####[facility] ([id number])[address] [address] Hemoglobin (Bld) [Mass/Vol] 7.2 g/dL Low 11.7-15.5 [facility] Comment on above: Performed By: #### 2 777-1, CBCA, , BMP ####[facility] ([id number])[address] [address] Lymphocytes (Bld) [#/Vol] 1.0 10*3/uL Normal 1.0-3.5 [facility] Comment on above: Performed By: #### 2 777-1, CBCA, , BMP ####[facility] ([id number])[address] [address] Lymphocytes/100 WBC (Bld) 7.9 % Normal [facility] Comment on above: Performed By: #### 2 777-1, CBCA, , BMP ####[facility] ([id number])[address] [address] MCH (RBC) [Entitic mass] 28.9 pg Normal 27-34 [facility] Comment on above: Performed By: #### 2 777-1, CBCA, , BMP ####[facility] ([id number])[address] [place] [address] MCHC (RBC) [Mass/Vol] 32.1 g/dL Normal 32-36 [facility] Comment on above: Performed By: #### 2 777-1, CBCA, , BMP ####[facility] ([id number])[address] [place] [address] MCV (RBC) [Entitic vol] 90 fL Normal 80-100 [facility] Comment on above: Performed By: #### 2 777-1, CBCA, , BMP ####[facility] ([id number])[address] [place] [address] Monocytes (Bld) [#/Vol] 0.4 10*3/uL Normal 0-0.9 [facility] Comment on above: Performed By: #### 2 777-1, CBCA, , BMP ####[facility] ([id number])[address] [address] [place] [address] Monocytes/100 WBC (Bld) 3.5 % Normal [facility] Comment on above: Performed By: #### 2 777-1, CBCA, , BMP ####[facility] ([id number])[address] [address] [place] [address] Neutrophils/100 WBC (Bld) 88.5 % Normal [facility] Comment on above: Performed By: #### 2 777-1, CBCA, , BMP ####[facility] ([id number])[address] [address] [place] [address] Platelet mean volume (Bld) [Entitic vol] 9.1 fL Normal 7-12 [facility] Comment on above: Performed By: #### 2 777-1, CBCA, , BMP ####[facility] ([id number])[address] [place] [address] Platelets (Bld) [#/Vol] 195 10*3/uL Normal 150-450 [facility] Comment on above: Performed By: #### 2 777-1, CBCA, , BMP ####[facility] ([id number])[address] [place] [address] RBC COUNT 2.49 X10E12/L Low 3.80-5.20 [facility] Comment on above: Performed By: #### 2 777-1, CBCA, , BMP ####[facility] ([id number])[address] [address] WBC (Bld) [#/Vol] 12.5 10*3/uL High 4.0-11.0 [facility] Comment on above: Performed By: #### 2 777-1, CBCA, , BMP ####[facility] ([id number])[address] [address] CORD ARTERIAL GASon 06-04-19 25 EDUARDO'S TEST Normal [facility] Comment on above: Performed By: #### C AUTOMATIC LATHE OPERATOR ####[facility] ([id number])[address] [place] [address] Performed By: #### C RDV ####[facility] ([id number])[address] [place] [address] BASE,DEFICIT 8.0 MMOL/L High 0.0-2.0 [facility] Comment on above: Performed By: #### C AUTOMATIC LATHE OPERATOR ####[facility] ([id number])[address] [place] [address] Performed By: #### C RDV ####[facility] ([id number])[address] [place] [address] HCO3 (Bld) [Moles/Vol] 19.2 mmol/L Low 22-26 [facility] Comment on above: Performed By: #### C AUTOMATIC LATHE OPERATOR ####[facility] ([id number])[address] [place] [address] INSP. O2 CONC. 21 % Normal [facility] Comment on above: Performed By: #### C AUTOMATIC LATHE OPERATOR ####[facility] ([id number])[address] [place] [address] Performed By: #### C RDV ####[facility] ([id number])[address] [place] [address] Oxygen (Bld) [Partial pressure] 18 mm[Hg] Normal 12-24 [facility] Comment on above: Performed By: #### C AUTOMATIC LATHE OPERATOR ####[facility] ([id number])[address] [place] [address] Oxygen saturation in Blood 21.0 % Normal 7.1-39.5 [facility] Comment on above: Performed By: #### C AUTOMATIC LATHE OPERATOR ####[facility] ([id number])[address] [place] [address] OXYGEN SOURCE Vent Normal [facility] Comment on above: Performed By: #### C AUTOMATIC LATHE OPERATOR ####[facility] ([id number])[address] [place] [address] PCO2 44.2 MMHG Normal 40.8-57.6 [facility] Comment on above: Performed By: #### C AUTOMATIC LATHE OPERATOR ####[facility] ([id number])[address] [place] [address] pH (Bld) 7.245 [pH] Normal 7.24-7.30 [facility] Comment on above: Performed By: #### C AUTOMATIC LATHE OPERATOR ####[facility] ([id number])[address] [place] [address] SAMPLE SITE [employer] Normal [facility] Comment on above: Performed By: #### C AUTOMATIC LATHE OPERATOR ####[facility] ([id number])[address] [facility] [place] [address] SAMPLE TYPE UMBILICALCORD Normal [facility] Comment on above: Performed By: #### C AUTOMATIC LATHE OPERATOR ####[facility] ([id number])[address] [facility] [place] [address] Performed By: #### C RDV ####[facility] ([id number])[address] [place] [address] CORD VENOUS GASon 06-03-2024 HCO3 (Bld) [Moles/Vol] 17.6 mmol/L Low 20.0-24.0 [facility] Comment on above: Performed By: #### C RDV ####[facility] ([id number])[address] [place] [address] Oxygen (Bld) [Partial pressure] 46 mm[Hg] High 22-35 [facility] Comment on above: Performed By: #### C RDV ####[facility] ([id number])[address] [place] [address] Oxygen saturation in Blood 77.0 % High 32.5-66.3 [facility] Comment on above: Performed By: #### C RDV ####[facility] ([id number])[address] [place] [address] OXYGEN SOURCE [employer] [facility] Comment on above: Performed By: #### C RDV ####[facility] ([id number])[address] [place] [address] PCO2 36.7 MMHG Normal 32.6-43.8 [facility] Comment on above: Performed By: #### C RDV ####[facility] ([id number])[address] [place] [address] pH (Bld) 7.289 [pH] Normal 7.25-7.37 [facility] Comment on above: Performed By: #### C RDV ####[facility] ([id number])[address] [place] [address] SAMPLE SITE Ven[employer] Normal [facility] Comment on above: Performed By: #### C RDV ####[facility] ([id number])[address] [place] [address] Calcium.ionized (Bld) [Mass/ Vol]on 06-03-2024 IONIZED CALCIUM 3.7 mg/dL Low 4.5-5.3 [facility] Comment on above: Performed By: #### 3 [id number] ####[facility] ([id number])[address] [place] [id number] IONIZED CALCIUM 4.0 mg/dL Low 4.5-5.3 [facility] Comment on above: Performed By: #### 3 8230-9, 92059-1 ####[facility] ([id number])[address], [address] [place] [address] Fibrinogen Coagulation.deriv ed (PPP) [Mass/Vol]on 06-03-2024 FIBRINOGEN 234 mg/dL Normal 190-480 [facility] Comment on above: Performed By: #### 1 4979-9, PINR, CBCA, 18287-8 ####[facility] ([id number])[address], [address] [place] [address] Glucose Glucometer (BldC) [M ass/Vol]on 06-03-2024 Glucose [Mass/Vol] 175 mg/dL High 65-99 [facility] Glucose [Mass/Vol] 153 mg/dL High 65-99 [facility] Glucose [Mass/Vol] 132 mg/dL High 65-99 [facility] Lactate (P qing) [Moles/Vol]o n 06-03-2024 LACTATE W/REFLEX 0.7 mmol/L Normal 0.4-2.0 [facility] Comment on above: Result Comment: Resu lt did not trigger repeat Lactate,re-order if needed. Performed By: #### 2 777-1, 62551-0, BMP, ####[facility] ([id number])[address], [address], [place] [address] MAGNESIUMon 06-03-2024 Magnesium [Mass/Vol] 5.2 mg/dL Critically high 1.8-2.6 [facility] Comment on above: Performed By: #### 2 777-1, 68821-2, ILEANA, ####[facility] ([id number])[address], [address], [place] [address] Magnesium [Mass/Vol] 5.0 mg/dL High 1.8-2.6 [facility] Comment on above: Performed By: #### 2 777-1, CBCA, , BMP ####[facility] ([id number])[address], [address], [place] [address] Magnesium Ionized ISE (Bld) [Moles/Vol]on 06-03-2024 IONIZED MAGNESIUM >1.50 High 0.45-0.74 [facility] Comment on above: Performed By: #### 3 8230-9, 31883-0 ####[facility] ([id number])[address], [address], [place] [address] PHOSPHORUSon 06-03-2024 Phosphate [Mass/Vol] 2.8 mg/dL Normal 2.4-4.9 [facility] Comment on above: Performed By: #### 2 777-1, 70662-6, BMP, ####[facility] ([id number])[address], [address], [place] [address] Phosphate [Mass/Vol] 2.0 mg/dL Low 2.4-4.9 [facility] Comment on above: Performed By: #### 2 777-1, CBCA, 51497-0, BMP ####[facility] ([id number])[address] [facility], [address] [place] [address] PROTIME AND INRon 06-03-2024 INR Coag (PPP) [Relative time] 1.0 {INR} Normal 0.9-1.2 [facility] Comment on above: Performed By: #### 1 4979-9, PINR, CBCA, 41475-5 ####[facility] ([id number])[address] [facility], [address] [place] [address] PT Coag (PPP) [Time] 10.9 s Normal 9.8-13.2 [facility] Comment on above: Performed By: #### 1 4979-9, PINR, CBCA, 51296-5 ####[facility] ([id number])[address] [facility], [address] [place] [address] Surgical Pathologyon 025 Surgical Pathology Normal [facility] Comment on above: Result Comment: [facility] [address] [place] [address] Surgical Pathology ConsultationPatient Name:JUAN LUIS STOREY:1990 (Age: 33)Gender:FTaken:06/03/2024Reported:06/09/2024Physician(s):Sesar Kay MD ([phone])Copy To: Rec. #:[id number]: #[id number] Pathologic DiagnosisPlacenta; removal: 432 g mature third-trimester placenta with subchorionic fibrin deposition and intervillous fibrin thrombi (x 3). Unremarkable membranes and unremarkable 3 vessels umbilical cord. Report Electronically Signed [place]/06/09/2024Wajasmyn Quinonez MDInterpretation performed at [facility], [address] [place] [address], License number: [id number].Clinical HistoryPreeclampsia.Gross DescriptionReceived in formalin labeled STOREY, placenta : SingleMEMBRANES:Placenta Sac Rupture (cm from margin): Approximately 10 cmColor: Blue-grayOther Characteristics: UnremarkableInsertion Site: MarginalCORD:Appearance: UnremarkableSite of Insertion: EccentricLength & Diameter (cm): 25 x 0.8 cmTrue Knots: NoNumber of vessels: 3GENERAL:Trimmed Weight (grams): 432 gComplete: YesSize 1 x Size 2 x Size 3 (cm): 17 x 15 x 1.8 cmAccessory Lobe(s): NoPLACENTAL DISK:Color of Surface: Wapb-evdfIrl-eflrsiiv Cyst: NoAmnion Nodosum: NoSubchorionic Fibrin: Yes, up to 0.2 cm in thickness, less than 5%Appearance of Cut Surface: There are at least 3 lincoln to red-brown laminated areas, 0.6 cm to 1.2 cm in greatest dimensionMaternal floor: Intact and unremarkableRetroplacental hematoma: NoCassettes:A Rolled membrane, two sections of cordB-D Aircraft [employer]ator sections of placentaE Additional membrane roll(5,ss,V12-22230) .med/06/04/2024NSKSpecimen(s) Received PlacentaFee Codes(s):1; 64348 aPTT Coag (PPP) [Time]on aPTT Coag (Bld) [Time] 30 s Normal 26-37 [facility] Comment on above: Performed By: #### 1 4979-9, PINR, CBCA, 58460-9 ####[facility] ([id number])[address] [facility], [address] [place] [address] ARTERIAL BLOOD GASon 025 EDUARDO'S TEST Normal [facility] Comment on above: Performed By: #### A BG ####[facility] ([id number])[address] [place] [address] BASE,DEFICIT 11.0 MMOL/L High 0.0-2.0 [facility] Comment on above: Performed By: #### A BG ####[facility] ([id number])[address] [place] [address] Body temperature 98.6 [degF] Normal 37.0 [facility] Comment on above: Performed By: #### A BG ####[facility] ([id number])[address] [facility] [place] [address] HCO3 (Bld) [Moles/Vol] 13.4 mmol/L Low 22-26 [facility] Comment on above: Performed By: #### A BG ####[facility] ([id number])[address] [facility] [place] [address] INSP. O2 CONC. 40 % Normal [facility] Comment on above: Performed By: #### A BG ####[facility] ([id number])[address] [facility] [place] [address] Oxygen (Bld) [Partial pressure] 68 mm[Hg] Low 80-100 [facility] Comment on above: Performed By: #### A BG ####[facility] ([id number])[address] [place] [address] Oxygen saturation in Blood 93.0 % Normal >90 [facility] Comment on above: Performed By: #### A BG ####[facility] ([id number])[address] [facility] [place] [address] OXYGEN SOURCE NC Normal [facility] Comment on above: Performed By: #### A BG ####[facility] ([id number])[address] [facility] [place] [address] PCO2 23.3 MMHG Low 35-45 [facility] Comment on above: Performed By: #### A BG ####[facility] ([id number])[address] [place] [address] pH (Bld) 7.369 [pH] Normal 7.350-7.450 [facility] Comment on above: Performed By: #### A BG ####[facility] ([id number])[address] [place] [address] SAMPLE SITE Raven Normal [facility] Comment on above: Performed By: #### A BG ####[facility] ([id number])[address] [place] [address] SAMPLE TYPE ARTERIAL Normal [facility] Comment on above: Performed By: #### A BG ####[facility] ([id number])[address] [place] [address] BASIC METABOLIC PANLon 06-02 Anion gap [Moles/Vol] 14 mmol/L Normal 5-15 [facility] Comment on above: Performed By: #### 1 9123-9, LIVR, BMP, CBCA, 2777-1 ####[facility] ([id number])[address], [address] [place] [address] Calcium [Mass/Vol] 7.9 mg/dL Low 8.5-10.5 [facility] Comment on above: Performed By: #### 1 9123-9, LIVR, BMP, CBCA, 2777-1 ####[facility] ([id number])[address], [address] [place] [address] Chloride [Moles/Vol] 113 mmol/L High 98-109 [facility] Comment on above: Performed By: #### 1 9123-9, LIVR, BMP, CBCA, 2777-1 ####[facility] ([id number])[address], [address] [place] [place] [address] CO2 [Moles/Vol] 14 mmol/L Low 22-32 [facility] Comment on above: Performed By: #### 1 9123-9, LIVR, BMP, CBCA, 2777-1 ####[facility] ([id number])[address] [address] Creatinine [Mass/Vol] 0.50 mg/dL Normal 0.40-1.00 [facility] Comment on above: Result Comment: METH OD TRACEABLE TO IDMS STANDARD Performed By: #### 1 9123-9, LIVR, BMP, CBCA, 2777-1 ####[facility] ([id number])[address] [address] [place] [address] eGFR (CKD-EPI) NON-RACE DEPENDENT >90 Normal >59 [facility] Comment on above: Result Comment: Repo rted eGFR is based on theCKD-EPI 2020 equation that doesnot use a race coefficient. Performed By: #### 1 9123-9, LIVR, BMP, CBCA, 277-1 ####[facility] ([id number])[address] [address] [place] [address] Glucose [Mass/Vol] 132 mg/dL High 65-99 [facility] Comment on above: Performed By: #### 1 9123-9, LIVR, BMP, CBCA, 2777-1 ####[facility] ([id number])[address] [address] Potassium [Moles/Vol] 4.0 mmol/L Normal 3.5-5.0 [facility] Comment on above: Performed By: #### 1 9123-9, LIVR, BMP, CBCA, 2777-1 ####[facility] ([id number])[address] [address] Sodium [Moles/Vol] 141 mmol/L Normal 134-146 [facility] Comment on above: Performed By: #### 1 9123-9, LIVR, BMP, CBCA, 2777-1 ####[facility] ([id number])[address], [address] [place] [address] Urea nitrogen [Mass/Vol] 10 mg/dL Normal 5-23 [facility] Comment on above: Performed By: #### 1 9123-9, LIVR, BMP, CBCA, 2777-1 ####[facility] ([id number])[address], [address] [place] [address] CBC AND AUTO DIFFon 06-03-19 25 ABSOLUTE BASOPHIL 0.0 X10E9/L Normal 0.0-0.2 [facility] Comment on above: Performed By: #### 1 4979-9, 2532-0, PINR, 13802-9, 15876-9, CMP, 99783-2, CBCA ####[facility] ([id number])[address] [address] [place] [address] ABSOLUTE NEUTROPHIL 13.6 X10E9/L High 1.5-6.6 [facility] Comment on above: Performed By: #### 1 4979-9, 2532-0, PINR, 29288-5, 50499-4, CMP, 32494-8, CBCA ####[facility] ([id number])[address] [address] [place] [address] Basophils/100 WBC (Bld) 0.3 % Normal [facility] Comment on above: Performed By: #### 1 4979-9, 2532-0, PINR, 55844-9, 02095-1, CMP, 98246-1, CBCA ####[facility] ([id number])[address] [address] [place] [address] Eosinophils (Bld) [#/Vol] 0.0 10*3/uL Normal 0.0-0.4 [facility] Comment on above: Performed By: #### 1 4979-9, 2532-0, PINR, 73129-7, 69957-2, CMP, 87827-2, CBCA ####[facility] ([id number])[address] [address] [place] [address] Eosinophils/100 WBC (Bld) 0.0 % Normal [facility] Comment on above: Performed By: #### 1 4979-9, 2532-0, PINR, 40294-6, 73922-4, CMP, 13294-6, CBCA ####[facility] ([id number])[address] [address] Erythrocyte distribution width (RBC) [Ratio] 17.4 % High 11.5-15.0 [facility] Comment on above: Performed By: #### 1 4979-9, 2532-0, PINR, 82706-9, 26366-2, CMP, 55243-3, CBCA ####[facility] ([id number])[address] [address] Hematocrit (Bld) [Volume fraction] 23.1 % Low 35-47 [facility] Comment on above: Performed By: #### 1 4979-9, 2532-0, PINR, 97694-0, 30095-0, CMP, 84035-0, CBCA ####[facility] ([id number])[address] [address] Hemoglobin (Bld) [Mass/Vol] 7.4 g/dL Low 11.7-15.5 [facility] Comment on above: Performed By: #### 1 4979-9, 2532-0, PINR, 88739-5, 92747-3, CMP, 95661-5, CBCA ####[facility] ([id number])[address] [address] Lymphocytes (Bld) [#/Vol] 0.8 10*3/uL Low 1.0-3.5 [facility] Comment on above: Performed By: #### 1 4979-9, 2532-0, PINR, 73875-8, 37317-0, CMP, 17913-9, CBCA ####[facility] ([id number])[address] [address], [place] [address] Lymphocytes/100 WBC (Bld) 5.4 % Normal [facility] Comment on above: Performed By: #### 1 4979-9, 2532-0, PINR, 41604-5, 92176-1, CMP, 86216-3, CBCA ####[facility] ([id number])[address], [address] [place] [address] MCH (RBC) [Entitic mass] 28.7 pg Normal 27-34 [facility] Comment on above: Performed By: #### 1 4979-9, 2532-0, PINR, 39883-2, 77148-1, CMP, 71778-4, CBCA ####[facility] ([id number])[address], [address] [place] [address] MCHC (RBC) [Mass/Vol] 32.0 g/dL Normal 32-36 [facility] Comment on above: Performed By: #### 1 4979-9, 2532-0, PINR, 47331-8, 42742-5, CMP, 83364-2, CBCA ####[facility] ([id number])[address] [address] [place] [address] MCV (RBC) [Entitic vol] 90 fL Normal 80-100 [facility] Comment on above: Performed By: #### 1 4979-9, 2532-0, PINR, 89810-6, 70087-8, CMP, 68622-6, CBCA ####[facility] ([id number])[address] [address] [place] [address] Monocytes (Bld) [#/Vol] 0.5 10*3/uL Normal 0-0.9 [facility] Comment on above: Performed By: #### 1 4979-9, 2532-0, PINR, 97873-6, 97282-3, CMP, 92798-1, CBCA ####[facility] ([id number])[address], [address] [place] [address] Monocytes/100 WBC (Bld) 3.6 % Normal [facility] Comment on above: Performed By: #### 1 4979-9, 2532-0, PINR, 09178-4, 54366-2, CMP, 49398-7, CBCA ####[facility] ([id number])[address], [address] [place] [address] Neutrophils/100 WBC (Bld) 90.7 % Normal [facility] Comment on above: Performed By: #### 1 4979-9, 2532-0, PINR, 40791-8, 89070-2, CMP, 88580-2, CBCA ####[facility] ([id number])[address], [address] [place] [address] Platelet mean volume (Bld) [Entitic vol] 9.2 fL Normal 7-12 [facility] Comment on above: Performed By: #### 1 4979-9, 2532-0, PINR, 92251-6, 75486-4, CMP, 06999-9, CBCA ####[facility] ([id number])[address], [address] [place] [address] Platelets (Bld) [#/Vol] 190 10*3/uL Normal 150-450 [facility] Comment on above: Performed By: #### 1 4979-9, 2532-0, PINR, 33059-1, 96045-6, CMP, 98024-9, CBCA ####[facility] ([id number])[address], [address], [place] [address] RBC COUNT 2.57 X10E12/L Low 3.80-5.20 [facility] Comment on above: Performed By: #### 1 4979-9, 2532-0, PINR, 33860-6, 23973-5, CMP, 12599-1, CBCA ####[facility] ([id number])[address], [address] [place] [address] WBC (Bld) [#/Vol] 15.0 10*3/uL High 4.0-11.0 [facility] Comment on above: Performed By: #### 1 4979-9, 2532-0, PINR, 23136-9, 08620-6, CMP, 73911-4, CBCA ####[facility] ([id number])[address], [address] [place] [place] [address] ABSOLUTE BASOPHIL 0.0 X10E9/L Normal 0.0-0.2 [facility] Comment on above: Performed By: #### 1 9123-9, LIVR, BMP, CBCA, 2777-1 ####[facility] ([id number])[address], [address] [place] [place] [address] ABSOLUTE NEUTROPHIL 13.5 X10E9/L High 1.5-6.6 [facility] Comment on above: Performed By: #### 1 9123-9, LIVR, BMP, CBCA, 2777-1 ####[facility] ([id number])[address], [address] [address] Basophils/100 WBC (Bld) 0.1 % Normal [facility] Comment on above: Performed By: #### 1 9123-9, LIVR, BMP, CBCA, 2777-1 ####[facility] ([id number])[address], [address] [place] [place] [address] Eosinophils (Bld) [#/Vol] 0.0 10*3/uL Normal 0.0-0.4 [facility] Comment on above: Performed By: #### 1 9123-9, LIVR, BMP, CBCA, 2776-02 ####[facility] ([id number])[address] [address] Eosinophils/100 WBC (Bld) 0.0 % Normal [facility] Comment on above: Performed By: #### 1 9123-9, LIVR, BMP, CBCA, 2776-02 ####[facility] ([id number])[address] [address] Erythrocyte distribution width (RBC) [Ratio] 17.4 % High 11.5-15.0 [facility] Comment on above: Performed By: #### 1 9123-9, LIVR, BMP, CBCA, 2776-02 ####[facility] ([id number])[address] [address] Hematocrit (Bld) [Volume fraction] 21.8 % Low 35-47 [facility] Comment on above: Performed By: #### 1 9123-9, LIVR, BMP, CBCA, 27708-10 ####[facility] ([id number])[address] [address] Hemoglobin (Bld) [Mass/Vol] 7.1 g/dL Low 11.7-15.5 [facility] Comment on above: Performed By: #### 1 9123-9, LIVR, BMP, CBCA, 2776-02 ####[facility] ([id number])[address] [address] Lymphocytes (Bld) [#/Vol] 0.6 10*3/uL Low 1.0-3.5 [facility] Comment on above: Performed By: #### 1 9123-9, LIVR, BMP, CBCA, 27708-10 ####[facility] ([id number])[address] [address] Lymphocytes/100 WBC (Bld) 4.4 % Normal [facility] Comment on above: Performed By: #### 1 91-9, LIVR, BMP, CBCA, 2776-02 ####[facility] ([id number])[address] [address] MCH (RBC) [Entitic mass] 29.0 pg Normal 27-34 [facility] Comment on above: Performed By: #### 1 9122-9, LIVR, BMP, CBCA, 2776-02 ####[facility] ([id number])[address], [address] [address] MCHC (RBC) [Mass/Vol] 32.4 g/dL Normal 32-36 [facility] Comment on above: Performed By: #### 1 9122-9, LIVR, BMP, CBCA, 2776-02 ####[facility] ([id number])[address] [address] MCV (RBC) [Entitic vol] 90 fL Normal 80-100 [facility] Comment on above: Performed By: #### 1 9122-9, LIVR, BMP, CBCA, 2776-02 ####[facility] ([id number])[address] [address] Monocytes (Bld) [#/Vol] 0.5 10*3/uL Normal 0-0.9 [facility] Comment on above: Performed By: #### 1 9122-9, LIVR, BMP, CBCA, 2776-02 ####[facility] ([id number])[address] [address] Monocytes/100 WBC (Bld) 3.4 % Normal [facility] Comment on above: Performed By: #### 1 9123-9, LIVR, BMP, CBCA, 2776- ####[facility] ([id number])[address] [address] [place] [address] Neutrophils/100 WBC (Bld) 92.1 % Normal [facility] Comment on above: Performed By: #### 1 9123-9, LIVR, BMP, CBCA, 2777-1 ####[facility] ([id number])[address] [address] [place] [address] Platelet mean volume (Bld) [Entitic vol] 9.8 fL Normal 7-12 [facility] Comment on above: Performed By: #### 1 9123-9, LIVR, BMP, CBCA, 2777-1 ####[facility] ([id number])[address] [address] [place] [address] Platelets (Bld) [#/Vol] 186 10*3/uL Normal 150-450 [facility] Comment on above: Performed By: #### 1 9123-9, LIVR, BMP, CBCA, 2777-1 ####[facility] ([id number])[address] [address] RBC COUNT 2.43 X10E12/L Low 3.80-5.20 [facility] Comment on above: Performed By: #### 1 9123-9, LIVR, BMP, CBCA, 2777-1 ####[facility] ([id number])[address] [address] WBC (Bld) [#/Vol] 14.6 10*3/uL High 4.0-11.0 [facility] Comment on above: Performed By: #### 1 9123-9, LIVR, BMP, CBCA, 2777-1 ####[facility] ([id number])[address] [address] COMPLETE BLOOD COUNTon 06-02 Erythrocyte distribution width (RBC) [Ratio] 17.7 % High 11.5-15.0 [facility] Comment on above: Performed By: #### C BC ####[facility] ([id number])[address], [place] [address] Hematocrit (Bld) [Volume fraction] 22.0 % Low 35-47 [facility] Comment on above: Performed By: #### C BC ####[facility] ([id number])[address], [address], [place] [address] Hemoglobin (Bld) [Mass/Vol] 7.1 g/dL Low 11.7-15.5 [facility] Comment on above: Performed By: #### C BC ####[facility] ([id number])[address], [address], [place] [address] MCH (RBC) [Entitic mass] 28.6 pg Normal 27-34 [facility] Comment on above: Performed By: #### C BC ####[facility] ([id number])[address], [address], [place] [address] MCHC (RBC) [Mass/Vol] 32.2 g/dL Normal 32-36 [facility] Comment on above: Performed By: #### C BC ####[facility] ([id number])[address], [address], [place] [address] MCV (RBC) [Entitic vol] 89 fL Normal 80-100 [facility] Comment on above: Performed By: #### C BC ####[facility] ([id number])[address], [place] [address] Platelet mean volume (Bld) [Entitic vol] 9.1 fL Normal 7-12 [facility] Comment on above: Performed By: #### C BC ####[facility] ([id number])[address], [address], [place] [address] Platelets (Bld) [#/Vol] 184 10*3/uL Normal 150-450 [facility] Comment on above: Performed By: #### C BC ####[facility] ([id number])[address], [address] [address] RBC COUNT 2.48 X10E12/L Low 3.80-5.20 [facility] Comment on above: Performed By: #### C BC ####[facility] ([id number])[address], [address] [place] [address] WBC (Bld) [#/Vol] 13.1 10*3/uL High 4.0-11.0 [facility] Comment on above: Performed By: #### C BC ####[facility] ([id number])[address], [address] [place] [address], [place] [address] COMPREHENSIVE METABOLIC PANE Santy 06-02-2024 Albumin [Mass/Vol] 3.2 g/dL Normal 3.2-5.3 [facility] Comment on above: Performed By: #### 1 4979-9, 2532-0, PINR, 34754-5, 79978-8, CMP, 07781-8, CBCA ####[facility] ([id number])[address], [address] [place] [address] ALP [Catalytic activity/Vol] 43 U/L Normal 39-130 [facility] Comment on above: Performed By: #### 1 4979-9, 2532-0, PINR, 21394-4, 72975-8, CMP, 74812-1, CBCA ####[facility] ([id number])[address], [address] [place] [address] ALT [Catalytic activity/Vol] 8 U/L Normal 0-31 [facility] Comment on above: Performed By: #### 1 4979-9, 2532-0, PINR, 63545-7, 68374-0, CMP, 52505-5, CBCA ####[facility] ([id number])[address], [address], [place] [address] Anion gap [Moles/Vol] 13 mmol/L Normal 5-15 [facility] Comment on above: Performed By: #### 1 4979-9, 2532-0, PINR, 40039-6, 09863-1, CMP, 12970-4, CBCA ####[facility] ([id number])[address] [place] [address] AST [Catalytic activity/Vol] 17 U/L Normal 0-41 [facility] Comment on above: Performed By: #### 1 4979-9, 2532-0, PINR, 48178-9, 09035-6, CMP, 14664-6, CBCA ####[facility] ([id number])[address] [place] [address] Bilirubin [Mass/Vol] 0.4 mg/dL Normal 0.3-1.2 [facility] Comment on above: Performed By: #### 1 4979-9, 2532-0, PINR, 93499-9, 22214-3, CMP, 65314-4, CBCA ####[facility] ([id number])[address], [address] [place] [address] Calcium [Mass/Vol] 8.1 mg/dL Low 8.5-10.5 [facility] Comment on above: Performed By: #### 1 4979-9, 2532-0, PINR, 33446-6, 72304-7, CMP, 45628-0, CBCA ####[facility] ([id number])[address], [address], [place] [address] Chloride [Moles/Vol] 110 mmol/L High 98-109 [facility] Comment on above: Performed By: #### 1 4979-9, 2532-0, PINR, 26547-3, 56059-2, CMP, 29976-4, CBCA ####[facility] ([id number])[address], [address] [address] CO2 [Moles/Vol] 15 mmol/L Low 22-32 [facility] Comment on above: Performed By: #### 1 4979-9, 2532-0, PINR, 15575-3, 07577-9, CMP, 93897-1, CBCA ####[facility] ([id number])[address], [address], [place] [address] Creatinine [Mass/Vol] 0.47 mg/dL Normal 0.40-1.00 [facility] Comment on above: Result Comment: METH OD TRACEABLE TO IDMS STANDARD Performed By: #### 1 4979-9, 2532-0, PINR, 24584-3, 45306-4, CMP, 71982-9, CBCA ####[facility] ([id number])[address], [address] [place] [address], [place] [address] eGFR (CKD-EPI) NON-RACE DEPENDENT >90 Normal >59 [facility] Comment on above: Result Comment: Repo rted eGFR is based on theCKD-EPI 2020 equation that doesnot use a race coefficient. Performed By: #### 1 4979-9, 2532-0, PINR, 15605-7, 97030-1, CMP, 59075-9, CBCA ####[facility] ([id number])[address], [address] [place] [place] [address] Glucose [Mass/Vol] 125 mg/dL High 65-99 [facility] Comment on above: Performed By: #### 1 4979-9, 2532-0, PINR, 38977-1, 41050-3, CMP, 87975-6, CBCA ####[facility] ([id number])[address], [address] [place] [place] [address] Potassium [Moles/Vol] 3.9 mmol/L Normal 3.5-5.0 [facility] Comment on above: Performed By: #### 1 4979-9, 2532-0, PINR, 81370-4, 64303-8, CMP, 34230-0, CBCA ####[facility] ([id number])[address], [address], [place] [address] Protein [Mass/Vol] 5.9 g/dL Low 6.0-8.0 [facility] Comment on above: Performed By: #### 1 4979-9, 2532-0, PINR, 07456-7, 81927-7, CMP, 98401-7, CBCA ####[facility] ([id number])[address], [address] [address] Sodium [Moles/Vol] 138 mmol/L Normal 134-146 [facility] Comment on above: Performed By: #### 1 4979-9, 2532-0, PINR, 20545-1, 08093-2, CMP, 64886-3, CBCA ####[facility] ([id number])[address], [address] [address] Urea nitrogen [Mass/Vol] 10 mg/dL Normal -23 [facility] Comment on above: Performed By: #### 1 4979-9, 2532-0, PINR, 81934-5, 06309-0, CMP, 50675-1, CBCA ####[facility] ([id number])[address], [address], [place] [address] CT ABDOMEN AND PELVIS W CONT on 06-02-2024 CT ABDOMEN AND PELVIS W CONT Normal [facility] CT CTA CHESTon 06-02-2024 CT CTA CHEST Normal [facility] Calcium.ionized (Bld) [Mass/ Vol]on 06-02-2024 IONIZED CALCIUM 4.7 mg/dL Normal 4.5-5.3 [facility] Comment on above: Performed By: #### 7 3572-0, 45784-4 ####[facility] ([id number])[address], [address], [place] [address] Fibrinogen Coagulation.deriv ed (PPP) [Mass/Vol]on 06-02-2024 FIBRINOGEN 468 mg/dL Normal 190-480 [facility] Comment on above: Performed By: #### 1 4979-9, 2532-0, PINR, 93725-5, 71497-0, CMP, 52809-5, CBCA ####[facility] ([id number])[address], [address] [place] [address] Glucose Glucometer (BldC) [M ass/Vol]on 06-02-2024 Glucose [Mass/Vol] 122 mg/dL High 65-99 [facility] Glucose [Mass/Vol] 116 mg/dL High 65-99 [facility] HGBon 06-02-2024 Hematocrit (Bld) [Volume fraction] 21.9 % Low 35-47 [facility] Comment on above: Performed By: #### H H ####[facility] ([id number])[address] [address] [place] [address] Hemoglobin (Bld) [Mass/Vol] 7.2 g/dL Low 11.7-15.5 [facility] Comment on above: Performed By: #### H H ####[facility] ([id number])[address], [address] [place] [address] Haptoglobin Nephelometry [Ma ss/Vol]on 06-02-2024 HAPTOGLOBIN 180 mg/dL Normal 32-228 [facility] Comment on above: Performed By: #### 1 4979-9, 2532-0, PINR, 50317-2, 30282-5, CMP, 55164-6, CBCA ####[facility] ([id number])[address], [address], [place] [address] LDH [Catalytic activity/Vol] on 06-02-2024 LDH 196 U/L Normal 100-235 [facility] Comment on above: Performed By: #### 1 4979-9, 2532-0, PINR, 52270-3, 64784-0, CMP, 59531-2, CBCA ####[facility] ([id number])[address], [address] [address] LIVER PANELon 06-02-2024 Albumin [Mass/Vol] 3.1 g/dL Low 3.2-5.3 [facility] Comment on above: Performed By: #### 1 9123-9, LIVR, BMP, CBCA, 2777-1 ####[facility] ([id number])[address], [address] [address] ALP [Catalytic activity/Vol] 44 U/L Normal 39-130 [facility] Comment on above: Performed By: #### 1 9123-9, LIVR, BMP, CBCA, 2777-1 ####[facility] ([id number])[address], [address], [place] [address] ALT [Catalytic activity/Vol] 9 U/L Normal 0-31 [facility] Comment on above: Performed By: #### 1 9123-9, LIVR, BMP, CBCA, 2777-1 ####[facility] ([id number])[address], [address] [address] AST [Catalytic activity/Vol] 19 U/L Normal 0-41 [facility] Comment on above: Performed By: #### 1 9123-9, LIVR, BMP, CBCA, 2777-1 ####[facility] ([id number])[address], [address] [address] Bilirubin [Mass/Vol] 0.6 mg/dL Normal 0.3-1.2 [facility] Comment on above: Performed By: #### 1 9123-9, LIVR, BMP, CBCA, 27771 ####[facility] ([id number])[address] [address] [place] [address] Bilirubin.direct [Mass/Vol] 0.2 mg/dL Normal 0.0-0.4 [facility] Comment on above: Performed By: #### 1 9123-9, LIVR, BMP, CBCA, 277- ####[facility] ([id number])[address] [address] [place] [address] Protein [Mass/Vol] 5.8 g/dL Low 6.0-8.0 [facility] Comment on above: Performed By: #### 1 9123-9, LIVR, BMP, CBCA, 2777-1 ####[facility] ([id number])[address] [address] [place] [address] Lactate (P qing) [Moles/Vol]o n 06-02-2024 LACTATE W/REFLEX 0.4 mmol/L Normal 0.4-2.0 [facility] Comment on above: Result Comment: Resu lt did not trigger repeat Lactate,re-order if needed. Performed By: #### 3 2132-02 ####[facility] ([id number])[address] [address] [place] [address] MAGNESIUMon 06-02-2024 Magnesium [Mass/Vol] 2.7 mg/dL High 1.8-2.6 [facility] Comment on above: Performed By: #### 1 9123-9, LIVR, BMP, CBCA, 2777-1 ####[facility] ([id number])[address] [address] [place] [address] Magnesium Ionized ISE (Bld) [Moles/Vol]on 06-02-2024 Magnesium [Moles/Vol] 0.81 mmol/L High 0.45-0.74 [facility] Comment on above: Result Comment: NEW REFERENCE RANGE Performed By: #### 7 3572-0, 44563-6 ####[facility] ([id number])[address], [address], [place] [address] Natriuretic peptide B [Mass/ Vol]on 06-02-2024 Natriuretic peptide B (Bld) [Mass/Vol] 214 pg/mL High <100.0 [facility] Comment on above: Performed By: #### 1 4979-9, 2532-0, PINR, 00364-5, 83743-3, CMP, 43933-3, CBCA ####[facility] ([id number])[address], [address] [place] [address] PHOSPHORUSon 06-02-2024 Phosphate [Mass/Vol] 2.6 mg/dL Normal 2.4-4.9 [facility] Comment on above: Performed By: #### 1 9123-9, LIVR, BMP, CBCA, 2777-1 ####[facility] ([id number])[address], [address] [place] [address] PROTIME AND INRon 06-02-2024 INR Coag (PPP) [Relative time] 1.0 {INR} Normal 0.9-1.2 [facility] Comment on above: Performed By: #### 1 4979-9, 2532-0, PINR, 66209-4, 28629-3, CMP, 48955-7, CBCA ####[facility] ([id number])[address], [address] [place] [address], [place] [address] PT Coag (PPP) [Time] 11.2 s Normal 9.8-13.2 [facility] Comment on above: Performed By: #### 1 4979-9, 2532-0, PINR, 66364-2, 32585-1, CMP, 97362-6, CBCA ####[facility] ([id number])[address], [address] [address] aPTT Coag (PPP) [Time]on aPTT Coag (Bld) [Time] 25 s Low 26-37 [facility] Comment on above: Performed By: #### 1 4979-9, 2532-0, PINR, 91623-1, 44568-3, CMP, 71742-5, CBCA ####[facility] ([id number])[address], [address] [place] [address] 24 HR URINE TOTAL PROTEINon 06-01-2024 URINE TOTAL PROTEIN 978 mg/24h High 0-150 [facility] Comment on above: Performed By: #### U PRO ####[facility] ([id number])[address] [place] [address] BASIC METABOLIC PANLon 06-01 Anion gap [Moles/Vol] 14 mmol/L Normal 5-15 [facility] Comment on above: Performed By: #### C BCA, , BMP, 2776- ####[facility] ([id number])[address], [address], [place] [address] Calcium [Mass/Vol] 7.3 mg/dL Low 8.5-10.5 [facility] Comment on above: Performed By: #### C BCA, 51342-1, BMP, 2776- ####[facility] ([id number])[address], [address] [place] [address] Chloride [Moles/Vol] 106 mmol/L Normal 98-109 [facility] Comment on above: Performed By: #### C BCA, 09554-5, BMP, 2776- ####[facility] ([id number])[address], [address] [place] [address] CO2 [Moles/Vol] 17 mmol/L Low 22-32 [facility] Comment on above: Performed By: #### C BCA, 28856-5, BMP, 2776-02 ####[facility] ([id number])[address] [address] [address] Creatinine [Mass/Vol] 0.58 mg/dL Normal 0.40-1.00 [facility] Comment on above: Result Comment: METH OD TRACEABLE TO IDMS STANDARD Performed By: #### C CRUZ, , BMP, 2776-02 ####[facility] ([id number])[address] [address] [address] eGFR (CKD-EPI) NON-RACE DEPENDENT >90 Normal >59 [facility] Comment on above: Result Comment: Repo rted eGFR is based on theCKD-EPI 2020 equation that doesnot use a race coefficient. Performed By: #### C BCA, , BMP, 2776-02 ####[facility] ([id number])[address] [address] [address] Glucose [Mass/Vol] 126 mg/dL High 65-99 [facility] Comment on above: Performed By: #### C BCA, , BMP, 2776-02 ####[facility] ([id number])[address] [address] [address] Potassium [Moles/Vol] 3.6 mmol/L Normal 3.5-5.0 [facility] Comment on above: Performed By: #### C BCA, , BMP, 2776-02 ####[facility] ([id number])[address] [address] [place] [address], [place] [address] Sodium [Moles/Vol] 137 mmol/L Normal 134-146 [facility] Comment on above: Performed By: #### C BCA, , BMP, 2776-02 ####[facility] ([id number])[address] [address] [address] Urea nitrogen [Mass/Vol] 8 mg/dL Normal 5-23 [facility] Comment on above: Performed By: #### C BCA, 02403-0, BMP, 2777-1 ####[facility] ([id number])[address] [place] [address] CBC AND AUTO DIFFon 06-02-19 25 ABSOLUTE BASOPHIL 0.0 X10E9/L Normal 0.0-0.2 [facility] Comment on above: Performed By: #### C BCA ####[facility] ([id number])[address], [place] [address] ABSOLUTE NEUTROPHIL 12.9 X10E9/L High 1.5-6.6 [facility] Comment on above: Performed By: #### C BCA ####[facility] ([id number])[address], [place] [address] Basophils/100 WBC (Bld) 0.1 % Normal [facility] Comment on above: Performed By: #### C BCA ####[facility] ([id number])[address] [place] [address] Eosinophils (Bld) [#/Vol] 0.0 10*3/uL Normal 0.0-0.4 [facility] Comment on above: Performed By: #### C BCA ####[facility] ([id number])[address] [place] [address] Eosinophils/100 WBC (Bld) 0.0 % Normal [facility] Comment on above: Performed By: #### C BCA ####[facility] ([id number])[address] [place] [address] Erythrocyte distribution width (RBC) [Ratio] 17.7 % High 11.5-15.0 [facility] Comment on above: Performed By: #### C BCA ####[facility] ([id number])[address], [address] [place] [address] Hematocrit (Bld) [Volume fraction] 21.6 % Low 35-47 [facility] Comment on above: Performed By: #### C BCA ####[facility] ([id number])[address], [address] [place] [address] Hemoglobin (Bld) [Mass/Vol] 6.9 g/dL Critically low 11.7-15.5 [facility] Comment on above: Performed By: #### C BCA ####[facility] ([id number])[address], [address] [address] Lymphocytes (Bld) [#/Vol] 0.5 10*3/uL Low 1.0-3.5 [facility] Comment on above: Performed By: #### C BCA ####[facility] ([id number])[address], [address], [place] [address] Lymphocytes/100 WBC (Bld) 3.7 % Normal [facility] Comment on above: Performed By: #### C BCA ####[facility] ([id number])[address] [address] MCH (RBC) [Entitic mass] 28.5 pg Normal 27-34 [facility] Comment on above: Performed By: #### C BCA ####[facility] ([id number])[address] [address] MCHC (RBC) [Mass/Vol] 32.1 g/dL Normal 32-36 [facility] Comment on above: Performed By: #### C BCA ####[facility] ([id number])[address] [place] [place] [address] MCV (RBC) [Entitic vol] 89 fL Normal 80-100 [facility] Comment on above: Performed By: #### C BCA ####[facility] ([id number])[address], [place] [address] Monocytes (Bld) [#/Vol] 0.4 10*3/uL Normal 0-0.9 [facility] Comment on above: Performed By: #### C BCA ####[facility] ([id number])[address], [place] [address] Monocytes/100 WBC (Bld) 3.1 % Normal [facility] Comment on above: Performed By: #### C BCA ####[facility] ([id number])[address], [place] [address] Neutrophils/100 WBC (Bld) 93.1 % Normal [facility] Comment on above: Performed By: #### C BCA ####[facility] ([id number])[address], [place] [address] Platelet mean volume (Bld) [Entitic vol] 9.4 fL Normal 7-12 [facility] Comment on above: Performed By: #### C BCA ####[facility] ([id number])[address], [place] [address] Platelets (Bld) [#/Vol] 169 10*3/uL Normal 150-450 [facility] Comment on above: Performed By: #### C BCA ####[facility] ([id number])[address], [place] [address] RBC COUNT 2.42 X10E12/L Low 3.80-5.20 [facility] Comment on above: Performed By: #### C BCA ####[facility] ([id number])[address], [place] [address] WBC (Bld) [#/Vol] 13.9 10*3/uL High 4.0-11.0 [facility] Comment on above: Performed By: #### C BCA ####[facility] ([id number])[address], [address], [place] [address] ABSOLUTE BASOPHIL 0.0 X10E9/L Normal 0.0-0.2 [facility] Comment on above: Performed By: #### Elizabeth ARROYO, , BMP, 2776-02 ####[facility] ([id number])[address] [place] [address] ABSOLUTE NEUTROPHIL 13.5 X10E9/L High 1.5-6.6 [facility] Comment on above: Performed By: #### Elizabeth ARROYO, , BMP, 2776-02 ####[facility] ([id number])[address], [place] [address] Basophils/100 WBC (Bld) 0.1 % Normal [facility] Comment on above: Performed By: #### Elizabeth ARROYO, , BMP, 2776-02 ####[facility] ([id number])[address] [place] [address] Eosinophils (Bld) [#/Vol] 0.0 10*3/uL Normal 0.0-0.4 [facility] Comment on above: Performed By: #### Elizabeth ARROYO, , BMP, 2776-02 ####[facility] ([id number])[address] [address] Eosinophils/100 WBC (Bld) 0.0 % Normal [facility] Comment on above: Performed By: #### Elizabeth ARROYO, , BMP, 2776-02 ####[facility] ([id number])[address] [place] [address] Erythrocyte distribution width (RBC) [Ratio] 17.6 % High 11.5-15.0 [facility] Comment on above: Performed By: #### Elizabeth ARROYO, , BMP, 2776-02 ####[facility] ([id number])[address] [address] [place] [address] Hematocrit (Bld) [Volume fraction] 23.3 % Low 35-47 [facility] Comment on above: Performed By: #### Elizabeth ARROYO, , BMP, 2776-02 ####[facility] ([id number])[address] [address] Hemoglobin (Bld) [Mass/Vol] 7.5 g/dL Low 11.7-15.5 [facility] Comment on above: Performed By: #### Elizabeth ARROYO, , BMP, 2776-02 ####[facility] ([id number])[address] [address] Lymphocytes (Bld) [#/Vol] 0.5 10*3/uL Low 1.0-3.5 [facility] Comment on above: Performed By: #### Elizabeth ARROYO, , BMP, 2776-02 ####[facility] ([id number])[address] [address] Lymphocytes/100 WBC (Bld) 3.2 % Normal [facility] Comment on above: Performed By: #### Elizabeth ARROYO, , BMP, 2776-02 ####[facility] ([id number])[address] [address] [place] [address] MCH (RBC) [Entitic mass] 28.7 pg Normal 27-34 [facility] Comment on above: Performed By: #### Elizabeth ARROYO, , BMP, 2776-02 ####[facility] ([id number])[address] [address] MCHC (RBC) [Mass/Vol] 32.4 g/dL Normal 32-36 [facility] Comment on above: Performed By: #### Elizabeth ARROYO, , BMP, 2776-02 ####[facility] ([id number])[address] [place] [place] [address] MCV (RBC) [Entitic vol] 89 fL Normal 80-100 [facility] Comment on above: Performed By: #### Elizabeth ARROYO, , BMP, 2776- ####[facility] ([id number])[address] [place] [place] [address] Monocytes (Bld) [#/Vol] 0.7 10*3/uL Normal 0-0.9 [facility] Comment on above: Performed By: #### Elizabeth ARROYO, , BMP, 2776-02 ####[facility] ([id number])[address] [address] Monocytes/100 WBC (Bld) 4.5 % Normal [facility] Comment on above: Performed By: #### Elizabeth ARROYO, , BMP, 2776-02 ####[facility] ([id number])[address] [place] [address] Neutrophils/100 WBC (Bld) 92.2 % Normal [facility] Comment on above: Performed By: #### Elizabeth ARROYO, , BMP, 2776- ####[facility] ([id number])[address] [place] [place] [address] Platelet mean volume (Bld) [Entitic vol] 9.8 fL Normal 7-12 [facility] Comment on above: Performed By: #### Elizabeth ARROYO, , BMP, 2776- ####[facility] ([id number])[address] [address] Platelets (Bld) [#/Vol] 162 10*3/uL Normal 150-450 [facility] Comment on above: Performed By: #### C CRUZ, , BMP, 2776-1 ####[facility] ([id number])[address], [place] [address] RBC COUNT 2.62 X10E12/L Low 3.80-5.20 [facility] Comment on above: Performed By: #### C CRUZ, , BMP, 2776- ####[facility] ([id number])[address], [address] [place] [address] WBC (Bld) [#/Vol] 14.7 10*3/uL High 4.0-11.0 [facility] Comment on above: Performed By: #### C CRUZ, , [facility], 2776- ####[facility] ([id number])[address], [address] [place] [address] Calcium.ionized (Bld) [Mass/ Vol]on 06-01-2024 IONIZED CALCIUM 4.2 mg/dL Low 4.5-5.3 [facility] Comment on above: Performed By: #### 3 8230-9, 71957-1 ####[facility] ([id number])[address], [address] [place] [address] Glucose Glucometer (BldC) [M ass/Vol]on 06-01-2024 Glucose [Mass/Vol] 126 mg/dL High 65-99 [facility] Glucose [Mass/Vol] 162 mg/dL High 65-99 [facility] Glucose [Mass/Vol] 117 mg/dL High 65-99 [facility] Lactate (P qing) [Moles/Vol]o n 06-01-2024 LACTATE W/REFLEX 0.7 mmol/L Normal 0.4-2.0 [facility] Comment on above: Result Comment: Resu lt did not trigger repeat Lactate,re-order if needed. Performed By: #### 3 2132-1 ####[facility] ([id number])[address], [place] [address] LACTATE W/REFLEX 1.4 mmol/L Normal 0.4-2.0 [facility] Comment on above: Result Comment: Resu lt did not trigger repeat Lactate,re-order if needed. Performed By: #### 3 2132-1 ####[facility] ([id number])[address], [address] [place] [address] MAGNESIUMon 06-01-2024 Magnesium [Mass/Vol] 5.6 mg/dL Critically high 1.8-2.6 [facility] Comment on above: Performed By: #### C CRUZ, 33171-1, BMP, 2777-1 ####[facility] ([id number])[address], [address] [place] [address] Magnesium Ionized ISE (Bld) [Moles/Vol]on 06-01-2024 Magnesium [Moles/Vol] 1.50 mmol/L High 0.45-0.74 [facility] Comment on above: Result Comment: NEW REFERENCE RANGE Performed By: #### 3 8230-9, 01353-7 ####[facility] ([id number])[address], [address] [place] [address] PHOSPHORUSon 06-01-2024 Phosphate [Mass/Vol] 3.8 mg/dL Normal 2.4-4.9 [facility] Comment on above: Performed By: #### C CRUZ, 34242-6, BMP, 7-1 ####[facility] ([id number])[address], [address] [place] [address] XR CHEST 1 VWon 06-01-2024 XR CHEST 1 VW Normal [facility] ABG RAPID K GLU HHon 025 EDUARDO'S TEST Normal [facility] Comment on above: Performed By: #### H RTN ####[facility] ([id number])[address] [facility] [address] BASE,DEFICIT 8.8 MMOL/L High 0.0-2.0 [facility] Comment on above: Performed By: #### H RTN ####[facility] ([id number])[address] [facility] [place] [address] Body temperature 98.6 [degF] Normal 37.0 [facility] Comment on above: Performed By: #### H RTN ####[facility] ([id number])[address] [place] [address] Glucose [Mass/Vol] 102 mg/dL High 65-99 [facility] Comment on above: Performed By: #### H RTN ####[facility] ([id number])[address]141 [place] [address] HCO3 (Bld) [Moles/Vol] 17.5 mmol/L Low 22-26 [facility] Comment on above: Performed By: #### H RTN ####[facility] ([id number])[address] [place] [address] Hematocrit (Bld) [Volume fraction] 25 % Low 35-47 [facility] Comment on above: Performed By: #### H RTN ####[facility] ([id number])[address] [place] [address] Hemoglobin (Bld) [Mass/Vol] 8.3 g/dL Low 11.7-15.5 [facility] Comment on above: Performed By: #### H RTN ####[facility] ([id number])[address] [place] [address] INSP. O2 CONC. 100 % Normal [facility] Comment on above: Performed By: #### H RTN ####[facility] ([id number])[address] [place] [address] Oxygen (Bld) [Partial pressure] 97 mm[Hg] Normal 80-100 [facility] Comment on above: Performed By: #### H RTN ####[facility] ([id number])[address] [place] [address] Oxygen saturation in Blood 97.8 % Normal >90 [facility] Comment on above: Performed By: #### H RTN ####[facility] ([id number])[address] [place] [address] PCO2 34.9 MMHG Low 35-45 [facility] Comment on above: Performed By: #### H RTN ####[facility] ([id number])[address] [place] [address] pH (Bld) 7.308 [pH] Low 7.350-7.450 [facility] Comment on above: Performed By: #### H RTN ####[facility] ([id number])[address] [place] [address] Potassium [Moles/Vol] 3.5 mmol/L Normal 3.5-5.0 [facility] Comment on above: Performed By: #### H RTN ####[facility] ([id number])[address] [place] [address] SAMPLE SITE RAVEN Normal [facility] Comment on above: Performed By: #### H RTN ####[facility] ([id number])[address] [place] [address] SAMPLE TYPE Arterial Normal [facility] Comment on above: Performed By: #### H RTN ####[facility] ([id number])[address] [place] [address] ARTERIAL BLOOD GASon 025 EDUARDO'S TEST Normal [facility] Comment on above: Performed By: #### A BG ####[facility] ([id number])[address] [place] [address] BASE,DEFICIT 7.0 MMOL/L High 0.0-2.0 [facility] Comment on above: Performed By: #### A BG ####[facility] ([id number])[address] [facility] [place] [address] Body temperature 98.6 [degF] Normal 37.0 [facility] Comment on above: Performed By: #### A BG ####[facility] ([id number])[address] [place] [address] HCO3 (Bld) [Moles/Vol] 17.6 mmol/L Low 22-26 [facility] Comment on above: Performed By: #### A BG ####[facility] ([id number])[address] [place] [place] [address] INSP. O2 CONC. 40 % Normal [facility] Comment on above: Performed By: #### A BG ####[facility] ([id number])[address] [place] [address] Oxygen (Bld) [Partial pressure] 105 mm[Hg] High 80-100 [facility] Comment on above: Performed By: #### A BG ####[facility] ([id number])[address] [facility] [place] [address] Oxygen saturation in Blood 98.0 % Normal >90 [facility] Comment on above: Performed By: #### A BG ####[facility] ([id number])[address] [place] [address] OXYGEN SOURCE Vent [facility] Comment on above: Performed By: #### A BG ####[facility] ([id number])[address] [place] [place] [address] PCO2 31.5 MMHG Low 35-45 [facility] Comment on above: Performed By: #### A BG ####[facility] ([id number])[address] [place] [address] pH (Bld) 7.354 [pH] Normal 7.350-7.450 [facility] Comment on above: Performed By: #### A BG ####[facility] ([id number])[address] [place] [address] SAMPLE SITE Raven Normal [facility] Comment on above: Performed By: #### A BG ####[facility] ([id number])[address] [place] [address] SAMPLE TYPE ARTERIAL Normal [facility] Comment on above: Performed By: #### A BG ####[facility] ([id number])[address] [place] [address] EDUARDO'S TEST Normal [facility] Comment on above: Performed By: #### A BG ####[facility] ([id number])[address] [place] [address] BASE,DEFICIT 7.0 MMOL/L High 0.0-2.0 [facility] Comment on above: Performed By: #### A BG ####[facility] ([id number])[address] [place] [address] Body temperature 98.6 [degF] Normal 37.0 [facility] Comment on above: Performed By: #### A BG ####[facility] ([id number])[address] [place] [address] HCO3 (Bld) [Moles/Vol] 17.6 mmol/L Low 22-26 [facility] Comment on above: Performed By: #### A BG ####[facility] ([id number])[address] [facility] [place] [address] INSP. O2 CONC. 100 % Normal [facility] Comment on above: Performed By: #### A BG ####[facility] ([id number])[address] [place] [address] Oxygen (Bld) [Partial pressure] 273 mm[Hg] High 80-100 [facility] Comment on above: Performed By: #### A BG ####[facility] ([id number])[address] [place] [address] Oxygen saturation in Blood 100.0 % Normal >90 [facility] Comment on above: Performed By: #### A BG ####[facility] ([id number])[address] [place] [address] OXYGEN SOURCE Vent [facility] Comment on above: Performed By: #### A BG ####[facility] ([id number])[address] [place] [address] PCO2 33.0 MMHG Low 35-45 [facility] Comment on above: Performed By: #### A BG ####[facility] ([id number])[address] [place] [address] pH (Bld) 7.336 [pH] Low 7.350-7.450 [facility] Comment on above: Performed By: #### A BG ####[facility] ([id number])[address] [place] [address] SAMPLE SITE Raven [facility] Comment on above: Performed By: #### A BG ####[facility] ([id number])[address] [place] [address] SAMPLE TYPE ARTERIAL Normal [facility] Comment on above: Performed By: #### A BG ####[facility] ([id number])[address] [place] [address] BASIC METABOLIC PANLon 05-31 Anion gap [Moles/Vol] 16 mmol/L High 5-15 [facility] Comment on above: Performed By: #### B MP, CBCA, 2776-02, ####[facility] ([id number])[address] [address] [address] Calcium [Mass/Vol] 7.7 mg/dL Low 8.5-10.5 [facility] Comment on above: Performed By: #### B TALI, CBCA, 2776-02, ####[facility] ([id number])[address] [address] Chloride [Moles/Vol] 102 mmol/L Normal 98-109 [facility] Comment on above: Performed By: #### B TALI, MARYA, 2776-02, ####[facility] ([id number])[address] [address] CO2 [Moles/Vol] 18 mmol/L Low 22-32 [facility] Comment on above: Performed By: #### B TALI, MARYA, 2776-02, ####[facility] ([id number])[address] [address] Creatinine [Mass/Vol] 0.65 mg/dL Normal 0.40-1.00 [facility] Comment on above: Result Comment: METH OD TRACEABLE TO IDMS STANDARD Performed By: #### B TALI MARYMagen, 2776-02, ####[facility] ([id number])[address] [place] [address] eGFR (CKD-EPI) NON-RACE DEPENDENT >90 Normal >59 [facility] Comment on above: Result Comment: Repo rted eGFR is based on theCKD-EPI 2020 equation that doesnot use a race coefficient. Performed By: #### B TALI, MARYA, 2776-02, ####[facility] ([id number])[address] [place] [address] Glucose [Mass/Vol] 114 mg/dL High 65-99 [facility] Comment on above: Performed By: #### B TALI CBCA, 2776-02, ####[facility] ([id number])[address] [place] [address] Potassium [Moles/Vol] 3.3 mmol/L Low 3.5-5.0 [facility] Comment on above: Performed By: #### B TALI, CBCA, 2776-02, ####[facility] ([id number])[address], [address] [place] [address] Sodium [Moles/Vol] 136 mmol/L Normal 134-146 [facility] Comment on above: Performed By: #### B TALI CBCA, 2776-02, ####[facility] ([id number])[address], [address] [place] [address] Urea nitrogen [Mass/Vol] 8 mg/dL Normal 5-23 [facility] Comment on above: Performed By: #### B TALI, CBCA, 2776-02, ####[facility] ([id number])[address], [address] [place] [address] CBC AND AUTO DIFFon 05-31- 25 ABSOLUTE BASOPHIL 0.0 X10E9/L Normal 0.0-0.2 [facility] Comment on above: Performed By: #### B TALI, CBCA, 2776-02, ####[facility] ([id number])[address], [address] [place] [address] ABSOLUTE NEUTROPHIL 11.4 X10E9/L High 1.5-6.6 [facility] Comment on above: Performed By: #### B TALI, CBCA, 2776-02, ####[facility] ([id number])[address] [address] Basophils/100 WBC (Bld) 0.3 % Normal [facility] Comment on above: Performed By: #### B MP, CBCA, 2776-02, ####[facility] ([id number])[address] [address], [place] [address] Eosinophils (Bld) [#/Vol] 0.0 10*3/uL Normal 0.0-0.4 [facility] Comment on above: Performed By: #### B MP, CBCA, 2776-02, ####[facility] ([id number])[address] [address], [place] [address] Eosinophils/100 WBC (Bld) 0.0 % Normal [facility] Comment on above: Performed By: #### B MP, CBCA, 2776-02, ####[facility] ([id number])[address] [address] [place] [address] Erythrocyte distribution width (RBC) [Ratio] 17.2 % High 11.5-15.0 [facility] Comment on above: Performed By: #### B MP, CBCA, 2776-02, ####[facility] ([id number])[address] [address] [place] [address] Hematocrit (Bld) [Volume fraction] 25.1 % Low 35-47 [facility] Comment on above: Performed By: #### B MP, CBCA, 2776-02, ####[facility] ([id number])[address] [address] [place] [address], [place] [address] Hemoglobin (Bld) [Mass/Vol] 8.2 g/dL Low 11.7-15.5 [facility] Comment on above: Performed By: #### B MP, CBCA, 2776-02, ####[facility] ([id number])[address], [place] [address] Lymphocytes (Bld) [#/Vol] 0.2 10*3/uL Low 1.0-3.5 [facility] Comment on above: Performed By: #### B TALI, CBCA, 2776-02, ####[facility] ([id number])[address], [address], [place] [address] Lymphocytes/100 WBC (Bld) 1.9 % Normal [facility] Comment on above: Performed By: #### B TALI, CBCA, 2776-02, ####[facility] ([id number])[address] [address] [place] [address] MCH (RBC) [Entitic mass] 28.7 pg Normal 27-34 [facility] Comment on above: Performed By: #### B TALI, CBCA, 2776-02, ####[facility] ([id number])[address] [address] [place] [address] MCHC (RBC) [Mass/Vol] 32.7 g/dL Normal 32-36 [facility] Comment on above: Performed By: #### B TALI, CBCA, 2776-02, ####[facility] ([id number])[address] [address] [place] [address] MCV (RBC) [Entitic vol] 88 fL Normal 80-100 [facility] Comment on above: Performed By: #### B TALI, CBCA, 2776-02, ####[facility] ([id number])[address] [address] [place] [address], [place] [address] Monocytes (Bld) [#/Vol] 0.4 10*3/uL Normal 0-0.9 [facility] Comment on above: Performed By: #### B MP, CBCA, 2776-02, ####[facility] ([id number])[address] [place] [address] Monocytes/100 WBC (Bld) 3.2 % Normal [facility] Comment on above: Performed By: #### B MP, CBCA, 2776-02, ####[facility] ([id number])[address] [place] [address] Neutrophils/100 WBC (Bld) 94.6 % Normal [facility] Comment on above: Performed By: #### B TALI, CBCA, 2776-02, ####[facility] ([id number])[address] [place] [address] Platelet mean volume (Bld) [Entitic vol] 9.9 fL Normal 7-12 [facility] Comment on above: Performed By: #### B TALI, CBCA, 2776-02, ####[facility] ([id number])[address] [address] [place] [address] Platelets (Bld) [#/Vol] 168 10*3/uL Normal 150-450 [facility] Comment on above: Performed By: #### B TALI, CBCA, 2776-02, ####[facility] ([id number])[address], [place] [address] RBC COUNT 2.86 X10E12/L Low 3.80-5.20 [facility] Comment on above: Performed By: #### B MP, CBCA, 2776-02, ####[facility] ([id number])[address], [place] [address] WBC (Bld) [#/Vol] 12.0 10*3/uL High 4.0-11.0 [facility] Comment on above: Performed By: #### B MP, CBCA, 2777-1, 03794-1 ####[facility] ([id number])[address], [place] [address] ABSOLUTE BASOPHIL 0.0 X10E9/L Normal 0.0-0.2 [facility] Comment on above: Performed By: #### Elizabeth ARROYO, 32536-6 ####[facility] ([id number])[address] [place] [address] ABSOLUTE NEUTROPHIL 15.3 X10E9/L High 1.5-6.6 [facility] Comment on above: Performed By: #### Elizabeth ARROYO, 11787-0 ####[facility] ([id number])[address] [address] Basophils/100 WBC (Bld) 0.1 % Normal [facility] Comment on above: Performed By: #### Elizabeth ARROYO, 69481-7 ####[facility] ([id number])[address] [place] [place] [address] Eosinophils (Bld) [#/Vol] 0.0 10*3/uL Normal 0.0-0.4 [facility] Comment on above: Performed By: #### Elizabeth ARROYO, 05517-2 ####[facility] ([id number])[address] [place] [place] [address] Eosinophils/100 WBC (Bld) 0.0 % Normal [facility] Comment on above: Performed By: #### Elizabeth ARROYO, 01262-7 ####[facility] ([id number])[address] [place] [place] [address] Erythrocyte distribution width (RBC) [Ratio] 17.6 % High 11.5-15.0 [facility] Comment on above: Performed By: #### Elizabeth ARROYO, 08982-7 ####[facility] ([id number])[address], [place] [address] Hematocrit (Bld) [Volume fraction] 33.4 % Low 35-47 [facility] Comment on above: Performed By: #### Elizabeth ARROYO, 41870-9 ####[facility] ([id number])[address], [place] [address] Hemoglobin (Bld) [Mass/Vol] 10.4 g/dL Low 11.7-15.5 [facility] Comment on above: Performed By: #### Elizabeth ARROYO, 98640-2 ####[facility] ([id number])[address], [place] [address] Lymphocytes (Bld) [#/Vol] 0.5 10*3/uL Low 1.0-3.5 [facility] Comment on above: Performed By: #### Elizabeth ARROYO, 18211-1 ####[facility] ([id number])[address] [place] [place] [address] Lymphocytes/100 WBC (Bld) 3.2 % Normal [facility] Comment on above: Performed By: #### Elizabeth ARROYO, 89847-7 ####[facility] ([id number])[address], [place] [address] MCH (RBC) [Entitic mass] 27.6 pg Normal 27-34 [facility] Comment on above: Performed By: #### Elizabeth ARROYO, 56433-5 ####[facility] ([id number])[address], [place] [address] MCHC (RBC) [Mass/Vol] 31.0 g/dL Low 32-36 [facility] Comment on above: Performed By: #### Elizabeth ARROYO, 76766-6 ####[facility] ([id number])[address], [place] [address] MCV (RBC) [Entitic vol] 89 fL Normal 80-100 [facility] Comment on above: Performed By: #### Elizabeth ARROYO, 44198-4 ####[facility] ([id number])[address] [place] [place] [address] Monocytes (Bld) [#/Vol] 0.5 10*3/uL Normal 0-0.9 [facility] Comment on above: Performed By: #### Elizabeth ARROYO, 30239-2 ####[facility] ([id number])[address], [place] [address] Monocytes/100 WBC (Bld) 3.1 % Normal [facility] Comment on above: Performed By: #### Elizabeth ARROOY, 34795-5 ####[facility] ([id number])[address], [place] [address] Neutrophils/100 WBC (Bld) 93.6 % Normal [facility] Comment on above: Performed By: #### Elizabeth ARROYO, 61576-8 ####[facility] ([id number])[address] [place] [address] Platelet mean volume (Bld) [Entitic vol] 10.1 fL Normal 7-12 [facility] Comment on above: Performed By: #### Elizabeth ARROYO, 37335-0 ####[facility] ([id number])[address] [address] [place] [place] [address] Platelets (Bld) [#/Vol] 222 10*3/uL Normal 150-450 [facility] Comment on above: Performed By: #### Elizabeth ARROYO, 26670-6 ####[facility] ([id number])[address] [address] [place] [address] RBC COUNT 3.76 X10E12/L Low 3.80-5.20 [facility] Comment on above: Performed By: #### Elizabeth ARROYO, 41954-1 ####[facility] ([id number])[address], [address] [place] [address] WBC (Bld) [#/Vol] 16.3 10*3/uL High 4.0-11.0 [facility] Comment on above: Performed By: #### C BCA, 44079-3 ####[facility] ([id number])[address], [address] [place] [address] TRA RADIOLOGIST OVERREADo n 05-31-2024 CT TRA RADIOLOGIST OVERREAD Normal [facility] Calcium.ionized (Bld) [Mass/ Vol]on 05-31-2024 IONIZED CALCIUM 4.5 mg/dL Normal 4.5-5.3 [facility] Comment on above: Performed By: #### 7 3572-0, 69756-8 ####[facility] ([id number])[address], [address] [place] [address] Fibrinogen Coagulation.deriv ed (PPP) [Mass/Vol]on 05-31-2024 FIBRINOGEN 303 mg/dL Normal 190-480 [facility] Comment on above: Performed By: #### 3 2133-1, 45136-0, 46168-2, PINR ####[facility] ([id number])[address], [address] [place] [address] Glucose Glucometer (BldC) [M ass/Vol]on 05-31-2024 Glucose [Mass/Vol] 136 mg/dL High 65-99 [facility] Lactate (Bld) [Moles/Vol]on 05-31-2024 RAPID LACTIC ACID 3.4 mmol/L High 0.4-2.0 [facility] Comment on above: Performed By: #### 3 2693-4 ####[facility] ([id number])[address] [place] [address] Lactate (P qing) [Moles/Vol]o n 05-31-2024 Lactate [Moles/Vol] 1.6 mmol/L Normal 0.4-2.0 [facility] Comment on above: Performed By: #### 3 2132-1 ####[facility] ([id number])[address] [address] LACTATE W/REFLEX 1.6 mmol/L Normal 0.4-2.0 [facility] Comment on above: Result Comment: Resu lt did not trigger repeat Lactate,re-order if needed. Performed By: #### 3 2132-1 ####[facility] ([id number])[address], [address] [place] [address] LACTATE W/REFLEX 2.2 mmol/L High 0.4-2.0 [facility] Comment on above: Performed By: #### 3 2132-1, 64670-2, 17555-2, PINR ####[facility] ([id number])[address], [address] [place] [address] LACTATE W/REFLEX 3.8 mmol/L High 0.4-2.0 [facility] Comment on above: Performed By: #### C BCA, 95661-9 ####[facility] ([id number])[address], [address] [place] [address] MAGNESIUMon 05-31-2024 Magnesium [Mass/Vol] 4.3 mg/dL High 1.8-2.6 [facility] Comment on above: Performed By: #### B MP, CBCA, 2777-1, 83604-4 ####[facility] ([id number])[address], [address] [place] [address], [place] [address] Magnesium Ionized ISE (Bld) [Moles/Vol]on 05-31-2024 Magnesium [Moles/Vol] 1.25 mmol/L High 0.45-0.74 [facility] Comment on above: Result Comment: NEW REFERENCE RANGE Performed By: #### 7 3572-0, 09011-1 ####[facility] ([id number])[address], [address], [place] [address] PHOSPHORUSon 05-31-2024 Phosphate [Mass/Vol] 4.7 mg/dL Normal 2.4-4.9 [facility] Comment on above: Performed By: #### B MP, CBCA, 2777-1, 65765-3 ####[facility] ([id number])[address], [address] [place] [address] POTASSIUMon 05-31-2024 Potassium [Moles/Vol] 3.7 mmol/L Normal 3.5-5.0 [facility] Comment on above: Performed By: #### 2 823-3 ####[facility] ([id number])[address], [address] [place] [address] PROTIME AND INRon 05-31-2024 INR Coag (PPP) [Relative time] 1.0 {INR} Normal 0.9-1.2 [facility] Comment on above: Performed By: #### 3 3-1, 17779-1, 02994-9, PINR ####[facility] ([id number])[address], [address] [place] [address], [place] [address] PT Coag (PPP) [Time] 11.5 s Normal 9.8-13.2 [facility] Comment on above: Performed By: #### 3 3-1, 09237-1, 77306-6, PINR ####[facility] ([id number])[address], [address] [address] RAPID CARDIACon 05-31-2024 EDUARDO'S TEST Normal [facility] Comment on above: Performed By: #### A FAB5 ####[facility] ([id number])[address] [place] [address] BASE,DEFICIT 8.9 MMOL/L High 0.0-2.0 [facility] Comment on above: Performed By: #### A FAB5 ####[facility] ([id number])[address] [place] [address] Body temperature 98.6 [degF] Normal 37.0 [facility] Comment on above: Performed By: #### A FAB5 ####[facility] ([id number])[address] [place] [address] Glucose [Mass/Vol] 107 mg/dL High 65-99 [facility] Comment on above: Performed By: #### A FAB5 ####[facility] ([id number])[address] [place] [address] HCO3 (Bld) [Moles/Vol] 17.7 mmol/L Low 22-26 [facility] Comment on above: Performed By: #### A FAB5 ####[facility] ([id number])[address] [place] [address] Hematocrit (Bld) [Volume fraction] 26 % Low 35-47 [facility] Comment on above: Performed By: #### A FAB5 ####[facility] ([id number])[address] [place] [address] Hemoglobin (Bld) [Mass/Vol] 8.6 g/dL Low 11.7-15.5 [facility] Comment on above: Performed By: #### A FAB5 ####[facility] ([id number])[address] [place] [address] INSP. O2 CONC. 100 % Normal [facility] Comment on above: Performed By: #### A FAB5 ####[facility] ([id number])[address]141 [place] [address] IONIZED CALCIUM 4.6 mg/dL Normal 4.5-5.3 [facility] Comment on above: Performed By: #### A FAB5 ####[facility] ([id number])2141 [place] [address] Oxygen (Bld) [Partial pressure] 96 mm[Hg] Normal 80-100 [facility] Comment on above: Performed By: #### A FAB5 ####[facility] ([id number])[address]141 [place] [address] Oxygen saturation in Blood 97.3 % Normal >90 [facility] Comment on above: Performed By: #### A FAB5 ####[facility] ([id number])[address]141 [place] [address] PCO2 37.1 MMHG Normal 35-45 [facility] Comment on above: Performed By: #### A FAB5 ####[facility] ([id number])[address]141 [place] [address] pH (Bld) 7.288 [pH] Low 7.350-7.450 [facility] Comment on above: Performed By: #### A FAB5 ####[facility] ([id number])[address] [place] [address] Potassium [Moles/Vol] 3.5 mmol/L Normal 3.5-5.0 [facility] Comment on above: Performed By: #### A FAB5 ####[facility] ([id number])[address] [place] [address] SAMPLE SITE RAVEN Normal [facility] Comment on above: Performed By: #### A FAB5 ####[facility] ([id number])[address] [place] [address] SAMPLE TYPE Arterial Normal [facility] Comment on above: Performed By: #### A FAB5 ####[facility] ([id number])[address]141 [place] [address] Surgical Pathologyon 025 Surgical Pathology Normal [facility] Comment on above: Result Comment: [facility] [address] [place] [address] Surgical Pathology ConsultationPatient Name:JUAN LUIS STOREY:1990 (Age: 33)Gender:FTaken:05/31/2024Reported:06/03/2024Physician(s):PADMINI Oquendo To: Rec. #:[id number]: #[id number] Pathologic DiagnosisSmall bowel; segmental resection: 2 benign segments of small bowel with dilated lumen, transmural hemorrhagic ischemic necrosis and acute serositis. Resection margins are viable and unremarkable. No granuloma, dysplasia or neoplasm. Report Electronically Signed [place]/06/03/2024Jose Quinonez MDInterpretation performed at [facility], [address] [place] [address], [place] [address], License number: [id number].Clinical HistoryPerforated viscous.Gross DescriptionReceived in formalin labeled CIRO, small bowel are two dilated, extensively dusky and dull hemorrhagic small bowel segments, 75 cm in length by 2.5-9.5 cm in diameter and 15.0 cm in length by 2.0-3.5 cm in diameter. Both are received closed at each end by staple lines. The segments are opened to reveal an abundant amount of watery hemorrhagic fluid. The mucosa is entirely hemorrhagic, dusky and dull. The margins from the shorter segment are submitted in cassettes A and B, the margins from the longer segment are submitted in cassette C and D and field support representative sections from the center of each are submitted in cassettes E-F. (6,ss,[id number], m6.1) GKgk/05/31/2024RGSpecimen(s) Received Small bowelFee Codes(s):1; [address] URINE VOLUME AND TIMEon 04-2 TIME 24 h Normal [facility] Comment on above: Performed By: #### U PRO ####[facility] ([id number])[address] [place] [address], [address], [place] [address] TOTAL VOLUME 4250 mL Normal [facility] Comment on above: Performed By: #### U PRO ####[facility] ([id number])[address], [address] [place] [address] XR ABD NG TUBE PLACEMENT 1 V IEWon 05-31-2024 XR ABD NG TUBE PLACEMENT 1 VIEW Normal [facility] XR CHEST 1 VWon 05-31-2024 XR CHEST 1 VW Normal [facility] XR CHEST 1 VW Normal [facility] aPTT Coag (PPP) [Time]on aPTT Coag (Bld) [Time] 28 s Normal 26-37 [facility] Comment on above: Performed By: #### 3 2133-1, 27496-0, 97663-3, PINR ####[facility] ([id number])[address], [address] [place], [place] [address] ALL CBC WITH AUTO DIFFon BASOPHILS ABSOLUTE AUTO 0 [facility] Basophils/100 WBC (Bld) 0.4 % 0.2 - 2.0 % [facility] Eosinophils/100 WBC (Bld) 1.1 % 0.9 - 7.0 % [facility] Erythrocyte distribution width (RBC) [Ratio] 15.5 % High 11.0 - 15.0 % [facility] Hematocrit (Bld) [Volume fraction] 27.6 % Low 36.0 - 48.0 % [facility] Hemoglobin (Bld) [Mass/Vol] 8.6 g/dL Low 12.0 - 16.0 g/dL [facility] IMMATURE GRANULOCYTES ABS AUTO 0.04 High [facility] Immature granulocytes/100 WBC (Bld) 0.8 % High 0.0 - 0.5 % [facility] Interpretation and review of laboratory results Abnormal [facility] LYMPHOCYTES ABSOLUTE AUTO 1.8 [facility] Lymphocytes/100 WBC (Bld) 33.3 % 20.5 - 60.0 % [facility] MCH (RBC) [Entitic mass] 29.1 pg 26.7 - 34.0 pg [facility] MCHC (RBC) [Mass/Vol] 31.2 g/dL 29.9 - 35.2 g/dL [facility] MCV (RBC) [Entitic vol] 93.2 fL 81.0 - 99.0 fL [facility] MONOCYTES ABSOLUTE AUTO 0.5 [facility] Monocytes/100 WBC (Bld) 9.1 % 1.7 - 12.0 % [facility] NEUTROPHILS ABSOLUTE AUTO 2.9 [facility] Neutrophils/100 WBC (Bld) 55.3 % 43.0 - 75.0 % [facility] Platelet mean volume (Bld) [Entitic vol] 11.8 fL 9.5 - 13.5 fL [facility] TBH EO # 0.1 [facility] TB PLT 189 [facility] TB RBC 2.96 Low [facility] WBC 5.3 [facility] CBC AND AUTO DIFFon 05-31-19 ABSOLUTE BASOPHIL 0.0 X10E9/L Normal 0.0-0.2 [facility] Comment on above: Performed By: #### 3 3-1, FEPR, 16306-6, 2275-4, 2131-10, 2283-09, CBCA, CMP ####[facility] ([id number])[address], [address], [place] [address] ABSOLUTE NEUTROPHIL 11.9 X10E9/L High 1.5-6.6 [facility] Comment on above: Performed By: #### 3 2132-1, FEPR, 90396-0, 2275-4, 2131-10, 2283-, CBCA, CMP ####[facility] ([id number])[address], [address], [place] [address] Basophils/100 WBC (Bld) 0.2 % Normal [facility] Comment on above: Performed By: #### 3 3-1, FEPR, 93344-8, 6-4, 2131-, 8, CBCA, CMP ####[facility] ([id number])[address], [address], [place] [address] Eosinophils (Bld) [#/Vol] 0.0 10*3/uL Normal 0.0-0.4 [facility] Comment on above: Performed By: #### 3 3-1, FEPR, 03241-8, 6-4, 2131-9, 2283-8, CBCA, CMP ####[facility] ([id number])[address] [address] [place] [address] Eosinophils/100 WBC (Bld) 0.0 % Normal [facility] Comment on above: Performed By: #### 3 2132-1, FEPR, 44362-2, 6-4, 9, 8, CBCA, CMP ####[facility] ([id number])[address] [address] [place] [address] Erythrocyte distribution width (RBC) [Ratio] 16.4 % High 11.5-15.0 [facility] Comment on above: Performed By: #### 3 2132-1, FEPR, 79757-1, 6-4, 2131-10, 2283-09, CBCA, CMP ####[facility] ([id number])[address] [address] [place] [address] Hematocrit (Bld) [Volume fraction] 30.2 % Low 35-47 [facility] Comment on above: Performed By: #### 3 2132-1, FEPR, 68900-1, 6-4, 2131-10, 2283-09, CBCA, CMP ####[facility] ([id number])[address] [address] [place] [address] Hemoglobin (Bld) [Mass/Vol] 9.9 g/dL Low 11.7-15.5 [facility] Comment on above: Performed By: #### 3 2132-1, FEPR, 74032-4, 6-4, 2131-9, 2283-8, CBCA, CMP ####[facility] ([id number])[address], [address] [place] [address] Lymphocytes (Bld) [#/Vol] 0.6 10*3/uL Low 1.0-3.5 [facility] Comment on above: Performed By: #### 3 3-1, FEPR, 14495-8, 6-4, 9, 2283-09, CBCA, CMP ####[facility] ([id number])[address] [address] [place] [address] Lymphocytes/100 WBC (Bld) 4.9 % Normal [facility] Comment on above: Performed By: #### 3 2132-1, FEPR, 07281-6, 2275-, 2131-10, 2283-09, CBCA, CMP ####[facility] ([id number])[address] [address] [place] [address] MCH (RBC) [Entitic mass] 28.8 pg Normal 27-34 [facility] Comment on above: Performed By: #### 3 2132-1, FEPR, 19751-1, 2275-4, 2131-10, 2283-09, CBCA, CMP ####[facility] ([id number])[address] [address] [place] [address] MCHC (RBC) [Mass/Vol] 32.8 g/dL Normal 32-36 [facility] Comment on above: Performed By: #### 3 2132-1, FEPR, 97621-1, 2275-4, 2131-10, 2283-09, CBCA, CMP ####[facility] ([id number])[address] [address] MCV (RBC) [Entitic vol] 88 fL Normal 80-100 [facility] Comment on above: Performed By: #### 3 2132-1, FEPR, 86762-2, 6-4, 2131-10, 2283-09, CBCA, CMP ####[facility] ([id number])[address], [address], [place] [address] Monocytes (Bld) [#/Vol] 0.2 10*3/uL Normal 0-0.9 [facility] Comment on above: Performed By: #### 3 3-1, FEPR, 18352-1, 6-4, 2131-9, 2283-8, CBCA, CMP ####[facility] ([id number])[address], [address], [place] [address] Monocytes/100 WBC (Bld) 1.4 % Normal [facility] Comment on above: Performed By: #### 3 2132-1, FEPR, 01791-4, 6-4, 2131-9, 2283-8, CBCA, CMP ####[facility] ([id number])[address], [address] [place] [address] Neutrophils/100 WBC (Bld) 93.5 % Normal [facility] Comment on above: Performed By: #### 3 2132-1, FEPR, 96892-6, 6-4, 2131-, 2283-, CBCA, CMP ####[facility] ([id number])[address], [address] [place] [address] Platelet mean volume (Bld) [Entitic vol] 10.1 fL Normal 7-12 [facility] Comment on above: Performed By: #### 3 2132-1, FEPR, 48743-3, 6-4, 2131-9, 2283-8, CBCA, CMP ####[facility] ([id number])[address] [address] [place] [address] Platelets (Bld) [#/Vol] 191 10*3/uL Normal 150-450 [facility] Comment on above: Performed By: #### 3 3-1, FEPR, 20739-4, 6-4, 2131-9, 2283-8, CBCA, CMP ####[facility] ([id number])[address], [address] [address] RBC COUNT 3.44 X10E12/L Low 3.80-5.20 [facility] Comment on above: Performed By: #### 3 3-1, FEPR, 39492-1, 6-4, 2131-9, 8, CBCA, CMP ####[facility] ([id number])[address], [address] [place] [address] WBC (Bld) [#/Vol] 12.8 10*3/uL High 4.0-11.0 [facility] Comment on above: Performed By: #### 3 2132-1, FEPR, 70949-4, 6-4, 2131-10, 2283-09, CBCA, CMP ####[facility] ([id number])[address], [address] [place] [address] COMPREHENSIVE METABOLIC PANE Santy 05-30-2024 Albumin [Mass/Vol] 3.9 g/dL Normal 3.2-5.3 [facility] Comment on above: Performed By: #### 3 2132-1, FEPR, 62667-7, 6-4, 2131-9, 2283-09, CBCA, CMP ####[facility] ([id number])[address], [address] [place] [address] ALP [Catalytic activity/Vol] 50 U/L Normal 39-130 [facility] Comment on above: Performed By: #### 3 3-1, FEPR, 59661-0, 6-4, 2131-9, 2283-8, CBCA, CMP ####[facility] ([id number])[address], [address] [address] ALT [Catalytic activity/Vol] 6 U/L Normal 0-31 [facility] Comment on above: Performed By: #### 3 3-1, FEPR, 15631-3, 6-4, 2131-9, 2283-8, CBCA, CMP ####[facility] ([id number])[address], [address], [place] [address] Anion gap [Moles/Vol] 14 mmol/L Normal 5-15 [facility] Comment on above: Performed By: #### 3 2132-1, FEPR, 99744-4, 6-4, 2131-, 8, CBCA, CMP ####[facility] ([id number])[address], [address] [place] [address] AST [Catalytic activity/Vol] 14 U/L Normal 0-41 [facility] Comment on above: Performed By: #### 3 2132-1, FEPR, 17567-8, 6-4, 2131-10, 2283-09, CBCA, CMP ####[facility] ([id number])[address], [address] [address] Bilirubin [Mass/Vol] 0.5 mg/dL Normal 0.3-1.2 [facility] Comment on above: Performed By: #### 3 2132-1, FEPR, 49677-3, 6-4, 2131-, 2283-09, CBCA, CMP ####[facility] ([id number])[address], [address], [place] [address] Calcium [Mass/Vol] 8.5 mg/dL Normal 8.5-10.5 [facility] Comment on above: Performed By: #### 3 2132-1, FEPR, 88124-1, 6-4, 2131-10, 8, CBCA, CMP ####[facility] ([id number])[address], [address], [place] [address] Chloride [Moles/Vol] 102 mmol/L Normal 98-109 [facility] Comment on above: Performed By: #### 3 3-1, FEPR, 82287-6, 6-4, 2131-9, 2283-8, CBCA, CMP ####[facility] ([id number])[address], [address], [place] [address] CO2 [Moles/Vol] 19 mmol/L Low 22-32 [facility] Comment on above: Performed By: #### 3 2132-1, FEPR, 84247-4, 6-4, 9, 2283-8, CBCA, CMP ####[facility] ([id number])[address], [address] [place] [address] Creatinine [Mass/Vol] 0.37 mg/dL Low 0.40-1.00 [facility] Comment on above: Result Comment: METH OD TRACEABLE TO IDMS STANDARD Performed By: #### 3 2132-1, FEPR, 53857-1, 6-4, 2131-10, 8, CBCA, CMP ####[facility] ([id number])[address], [address] [address] eGFR (CKD-EPI) NON-RACE DEPENDENT >90 Normal >59 [facility] Comment on above: Result Comment: Repo rted eGFR is based on theCKD-EPI 2020 equation that doesnot use a race coefficient. Performed By: #### 3 2132-1, FEPR, 54868-3, 6-4, 2131-10, 8, CBCA, CMP ####[facility] ([id number])[address], [address] [place] [place] [address] Glucose [Mass/Vol] 120 mg/dL High 65-99 [facility] Comment on above: Performed By: #### 3 3-1, FEPR, 37417-9, 6-4, 9, 2283-8, CBCA, CMP ####[facility] ([id number])[address], [address], [place] [address] Potassium [Moles/Vol] 3.4 mmol/L Low 3.5-5.0 [facility] Comment on above: Performed By: #### 3 3-1, FEPR, 16629-3, 2276-4, 2131-9, 4-8, CBCA, CMP ####[facility] ([id number])[address], [address] [place] [address] Protein [Mass/Vol] 7.3 g/dL Normal 6.0-8.0 [facility] Comment on above: Performed By: #### 3 2132-1, FEPR, 63881-3, 6-4, 2131-9, 2283-8, CBCA, CMP ####[facility] ([id number])[address], [address] [place] [address] Sodium [Moles/Vol] 135 mmol/L Normal 134-146 [facility] Comment on above: Performed By: #### 3 2132-1, FEPR, 14356-8, 6-4, 2131-9, 2283-8, CBCA, CMP ####[facility] ([id number])[address], [address] [place] [address] Urea nitrogen [Mass/Vol] 5 mg/dL Normal 5-23 [facility] Comment on above: Performed By: #### 3 2132-1, FEPR, 04810-4, 6-4, 2131-9, 2283-8, CBCA, CMP ####[facility] ([id number])[address] [address] [place] [address] DRUG SCREEN, URINEon 025 AMPHETAMINE/METHAMP Negative Normal NEG [facility] Comment on above: Result Comment: AMPH /METH screening cut off = 1000 ng/mL Performed By: #### D LUGO ####[facility] ([id number])[address] [address] BARBITURATES Negative Normal NEG [facility] Comment on above: Result Comment: Linda iturates screening cut off value = 200 ng/mL Performed By: #### D LUGO ####[facility] ([id number])[address], [address], [place] [address] BENZODIAZEPINES Negative Normal NEG [facility] Comment on above: Result Comment: Jg odiazepines screening cut off value = 200 ng/mL Performed By: #### D LUGO ####[facility] ([id number])[address], [address] [place] [address] CANNABINOIDS Negative Normal NEG [facility] Comment on above: Result Comment: Rachel abinoids/THC screening cut off value = 50 ng/mL Performed By: #### D LUGO ####[facility] ([id number])[address], [address] [place] [address] COCAINE METABOLITE Negative Normal NEG [facility] Comment on above: Result Comment: Coca ine screening cut off value = 300 ng/mL Performed By: #### D LUGO ####[facility] ([id number])[address], [address] [place] [address] ECSTASY Negative Normal NEG [facility] Comment on above: Result Comment: Ecst asy screening cut off value = 500 ng/mLThis report is intended for use in clinicalmonitoring or management of patients. Performed By: #### D LUGO ####[facility] ([id number])[address], [address] [place] [address] METHADONE Negative Normal NEG [facility] Comment on above: Result Comment: Meth adone screening cut off value = 300 ng/mL. Performed By: #### D LUGO ####[facility] ([id number])[address], [address] [place] [address] OPIATES Positive Abnormal NEG [facility] Comment on above: Result Comment: Conf irmation available upon request.Opiates screening cut off value = 300 ng/mLNOTE:This test is used for the detection ofcodeine, hydrocodone (>1000 ng/mL), morphineand hydromorphone (>900 ng/mL) in urine. Performed By: #### D LUGO ####[facility] ([id number])[address], [address] [place] [address] OXYCODONE Negative Normal NEG [facility] Comment on above: Result Comment: Oxyc odone screening cut off value = 300 ng/mLNOTE:This test is used for the detection ofoxycodone and oxymorphone in urine. Performed By: #### D LUGO ####[facility] ([id number])[address] [address] PHENCYCLIDINE Negative Normal NEG [facility] Comment on above: Result Comment: Phen cyclidine screening cut off value = 25 ng/mL Performed By: #### D LUGO ####[facility] ([id number])[address] [address] FERRITINon 05-30-2024 Ferritin [Mass/Vol] 8 ng/mL Low 11-307 [facility] Comment on above: Performed By: #### 3 3-1, FEPR, 75576-9, 2276-4, 2131-9, 4-8, CBCA, CMP ####[facility] ([id number])[address] [place] [address] Folate [Mass/Vol]on 05-31-19 25 FOLIC ACID >25.0 Normal >5.8 [facility] Comment on above: Result Comment: NEW REFERENCE RANGE Performed By: #### 3 3-1, FEPR, 95450-6, 2276-4, 2131-9, 2284-8, CBCA, CMP ####[facility] ([id number])[address], [address], [place] [address] IRON PROFILEon 05-30-2024 Iron [Mass/Vol] 28 ug/dL Low 50-170 [facility] Comment on above: Performed By: #### 3 3-1, FEPR, 58954-8, 2276-4, 2131-9, 4-8, CBCA, CMP ####[facility] ([id number])[address], [address] [place] [address] IRON BINDING 553 ug/dL High 250-425 [facility] Comment on above: Performed By: #### 3 2132-1, FEPR, 91694-5, 6-4, 2131-9, 2283-8, CBCA, CMP ####[facility] ([id number])[address], [address] [place] [address] IRON SATURATION 5 % SATURATION Low 15-50 [facility] Comment on above: Performed By: #### 3 2132-1, FEPR, 86893-5, 6-4, 2131-9, 2283-8, CBCA, CMP ####[facility] ([id number])[address], [address] [place] [address] Lactate (P qing) [Moles/Vol]o n 05-30-2024 LACTATE W/REFLEX 1.1 mmol/L Normal 0.4-2.0 [facility] Comment on above: Result Comment: Resu lt did not trigger repeat Lactate,re-order if needed. Performed By: #### 3 3-1, FEPR, 54318-6, 2276-4, 2131-9, 2283-8, CBCA, CMP ####[facility] ([id number])[address], [address] [place] [address]881 PROTEIN CREAT RATIOon 2024 RANDOM URINE PROTEIN 500 mg/L High <120 [facility] Comment on above: Performed By: #### U PCR ####[facility] ([id number])[address], [address] [place] [address] U/PRO/SURVEILLANCE MANAGER RATIO CALC 1.28 High <0.2 [facility] Comment on above: Result Comment: Neph rotic Syndrome is associated with ratios >3.5 Performed By: #### U PCR ####[facility] ([id number])[address], [address] [place] [address] URINE CREATININE,RDM 39.15 mg/dL Normal [facility] Comment on above: Performed By: #### U PCR ####[facility] ([id number])[address] [address] T. pallidum IgG+IgM IA Ql (S )on 05-30-2024 Syphilis Total 0.2 AI Normal 0.0-0.8 [facility] Comment on above: Result Comment: NON REACTIVENo serologic evidence of infection to Treponema pallidum (syphilis).Repeat testing may be considered in patients with suspected acute or primary syphilis in 2 to 4 weeks. Performed By: #### 3 2133-1, FEPR, 49591-8, 2276-4, 2132-9, 2284-8, CBCA, CMP ####[facility] ([id number])[address] [address] [place] [id number] URINALYSISon 05-30-2024 Bilirubin Ql (U) Negative Normal NEG [facility] Comment on above: Performed By: #### U A ####[facility] ([id number])[address] [address] [place] [address] BLOOD/HGB Negative Normal NEG [facility] Comment on above: Performed By: #### U A ####[facility] ([id number])[address] [address] [place] [address] Color (U) YELLOW Normal YELLOW [facility] Comment on above: Performed By: #### U A ####[facility] ([id number])[address] [address] Glucose Ql (U) 200 mg/dL Abnormal NEG [facility] Comment on above: Performed By: #### U A ####[facility] ([id number])[address], [place] [address] Ketones Ql (U) 20 mg/dL Abnormal NEG [facility] Comment on above: Performed By: #### U A ####[facility] ([id number])[address] [address] Leukocyte esterase Test strip Ql (U) Negative Normal NEG [facility] Comment on above: Performed By: #### U A ####[facility] ([id number])[address] [place] [address] MUCOUS PRESENT Abnormal NONE [facility] Comment on above: Performed By: #### U A ####[facility] ([id number])[address] [address] Nitrite Ql (U) Negative Normal NEG [facility] Comment on above: Performed By: #### U A ####[facility] ([id number])[address] [place] [address] pH (U) 6.5 [pH] Normal 5.0-8.5 [facility] Comment on above: Performed By: #### U A ####[facility] ([id number])[address], [place] [address] Protein Ql (U) 30 mg/dL Abnormal NEG [facility] Comment on above: Performed By: #### U A ####[facility] ([id number])[address] [address] R.B.CELLS 2 /hpf Normal 0-5 [facility] Comment on above: Performed By: #### U A ####[facility] ([id number])[address], [place] [address] Specific gravity (U) [Rel density] 1.018 Normal 1.003-1.035 [facility] Comment on above: Performed By: #### U A ####[facility] ([id number])[address] [address] [place] [address] SQUAMOUS EPITHELIUM <1 Normal 0-5 [facility] Comment on above: Performed By: #### U A ####[facility] ([id number])[address] [address] [place] [address] TURBIDITY CLEAR Normal CLEAR [facility] Comment on above: Performed By: #### U A ####[facility] ([id number])[address] [address] [place] [address] Urobilinogen (U) [Mass/Vol] mg/dL Normal <1.1 [facility] Comment on above: Performed By: #### U A ####[facility] ([id number])[address] [address] [place] [address] W.B.CELLS 1 /hpf Normal 0-5 [facility] Comment on above: Performed By: #### U A ####[facility] ([id number])[address] [address] [place] [address], [place] [address] VITAMIN B12on 05-30-2024 Cobalamin (Vitamin B12) [Mass/Vol] 193 pg/mL Normal 180-914 [facility] Comment on above: Performed By: #### 3 2133-1, FEPR, 27864-7, 2276-4, 2132-9, 2284-8, CBCA, CMP ####[facility] ([id number])[address] [address] [place] [address] ALL CBC WITH AUTO DIFFon 04- 18-2025 BASOPHILS ABSOLUTE AUTO 0 [facility] Basophils/100 WBC (Bld) 0.6 % 0.2 - 2.0 % [facility] Eosinophils/100 WBC (Bld) 0.6 % Low 0.9 - 7.0 % [facility] Erythrocyte distribution width (RBC) [Ratio] 15.5 % High 11.0 - 15.0 % [facility] Hematocrit (Bld) [Volume fraction] 28.8 % Low 36.0 - 48.0 % [facility] Hemoglobin (Bld) [Mass/Vol] 8.9 g/dL Low 12.0 - 16.0 g/dL [facility] IMMATURE GRANULOCYTES ABS AUTO 0.04 High [facility] Immature granulocytes/100 WBC (Bld) 0.6 % High 0.0 - 0.5 % [facility] Interpretation and review of laboratory results Abnormal [facility] LYMPHOCYTES ABSOLUTE AUTO 1.8 [facility] Lymphocytes/100 WBC (Bld) 25.5 % 20.5 - 60.0 % [facility] MCH (RBC) [Entitic mass] 29 pg 26.7 - 34.0 pg [facility] MCHC (RBC) [Mass/Vol] 30.9 g/dL 29.9 - 35.2 g/dL [facility] MCV (RBC) [Entitic vol] 93.8 fL 81.0 - 99.0 fL [facility] MONOCYTES ABSOLUTE AUTO 0.4 [facility] Monocytes/100 WBC (Bld) 6.2 % 1.7 - 12.0 % [facility] NEUTROPHILS ABSOLUTE AUTO 4.7 [facility] Neutrophils/100 WBC (Bld) 66.5 % 43.0 - 75.0 % [facility] Platelet mean volume (Bld) [Entitic vol] 11.9 fL 9.5 - 13.5 fL [facility] TBH EO # 0 [facility] TBH PLT 189 [facility] RBC 3.07 Low [facility] TB WBC 7.1 [facility] ALL CBC WITH AUTO DIFFon BASOPHILS ABSOLUTE AUTO 0 [facility] Basophils/100 WBC (Bld) 0.6 % 0.2 - 2.0 % [facility] Eosinophils/100 WBC (Bld) 0.9 % 0.9 - 7.0 % [facility] Erythrocyte distribution width (RBC) [Ratio] 15.5 % High 11.0 - 15.0 % [facility] Hematocrit (Bld) [Volume fraction] 29.8 % Low 36.0 - 48.0 % [facility] Hemoglobin (Bld) [Mass/Vol] 9.5 g/dL Low 12.0 - 16.0 g/dL [facility] IMMATURE GRANULOCYTES ABS AUTO 0.05 High [facility] Immature granulocytes/100 WBC (Bld) 0.7 % High 0.0 - 0.5 % [facility] Interpretation and review of laboratory results Abnormal [facility] LYMPHOCYTES ABSOLUTE AUTO 1.8 [facility] Lymphocytes/100 WBC (Bld) 26.4 % 20.5 - 60.0 % [facility] MCH (RBC) [Entitic mass] 30 pg 26.7 - 34.0 pg [facility] MCHC (RBC) [Mass/Vol] 31.9 g/dL 29.9 - 35.2 g/dL [facility] MCV (RBC) [Entitic vol] 94 fL 81.0 - 99.0 fL [facility] MONOCYTES ABSOLUTE AUTO 0.4 [facility] Monocytes/100 WBC (Bld) 6.5 % 1.7 - 12.0 % [facility] NEUTROPHILS ABSOLUTE AUTO 4.4 [facility] Neutrophils/100 WBC (Bld) 64.9 % 43.0 - 75.0 % [facility] Platelet mean volume (Bld) [Entitic vol] 11.5 fL 9.5 - 13.5 fL [facility] TBH EO # 0.1 [facility] PLT 201 [facility] RBC 3.17 Low [facility] WBC 6.8 [facility] Urinalysis macro (dipstick) panel (U)on 05-12-2024 Bilirubin, UA Negative Negative - 4(70) +++ mg/dL [facility] Blood, UA Negative Negative - 50 Enrrique/mcL [facility] Clarity, UA Cloudy [facility] Color, UA Brantley [facility] Glucose, UA Negative Negative - 2000(110) ++++ mg/dL [facility] Interpretation and review of laboratory results Abnormal [facility] Ketones, UA Positive Negative - 160(16) ++++ mg/dL [facility] Comment on above: 15 Leukocytes, UA Negative Negative - 500+++ Cam/mcL [facility] Nitrite, UA Negative Negative - Positive [facility] pH, UA 6 5 - 9 [facility] Protein, UA Positive Negative - 1999(20) ++++ mg/dL [facility] Comment on above: 30 Spec Grav, UA 1.025 1 - 1.03 [facility] Urobilinogen, UA 1.0 0.2 - 12 mg/dL [facility] ALL CBC WITH AUTO DIFFon BASOPHILS ABSOLUTE AUTO 0 [facility] Basophils/100 WBC (Bld) 0.4 % 0.2 - 2.0 % [facility] Eosinophils/100 WBC (Bld) 0.5 % Low 0.9 - 7.0 % [facility] Erythrocyte distribution width (RBC) [Ratio] 15 % 11.0 - 15.0 % [facility] Hematocrit (Bld) [Volume fraction] 29.6 % Low 36.0 - 48.0 % [facility] Hemoglobin (Bld) [Mass/Vol] 9.7 g/dL Low 12.0 - 16.0 g/dL [facility] IMMATURE GRANULOCYTES ABS AUTO 0.02 [facility] Immature granulocytes/100 WBC (Bld) 0.3 % 0.0 - 0.5 % [facility] Interpretation and review of laboratory results Abnormal [facility] LYMPHOCYTES ABSOLUTE AUTO 1.8 [facility] Lymphocytes/100 WBC (Bld) 22.3 % 20.5 - 60.0 % [facility] MCH (RBC) [Entitic mass] 31.4 pg 26.7 - 34.0 pg [facility] MCHC (RBC) [Mass/Vol] 32.8 g/dL 29.9 - 35.2 g/dL [facility] MCV (RBC) [Entitic vol] 95.8 fL 81.0 - 99.0 fL [facility] MONOCYTES ABSOLUTE AUTO 0.5 [facility] Monocytes/100 WBC (Bld) 6.3 % 1.7 - 12.0 % [facility] NEUTROPHILS ABSOLUTE AUTO 5.6 [facility] Neutrophils/100 WBC (Bld) 70.2 % 43.0 - 75.0 % [facility] Platelet mean volume (Bld) [Entitic vol] 11.6 fL 9.5 - 13.5 fL [facility] TBH EO # 0 [facility] TBH PLT 181 [facility] RBC 3.09 Low [facility] WBC 7.9 [facility]SE TOLERANCE 3 HOURon 0 05-08-2024 GLUCOSE TOLERANCE 3 HOUR mg/dL [facility] Comment on above: GLU FAST 90 (<95) Co l: 05/08/24 0806 GLU 1HR 159 (<180) Col: 05/08/24 0913 GLU 2HR 142 (<155) Col: 05/08/24 1013 GLU 3HR 117 (<140) Col: 05/08/24 1113 [facility] - OfficeOrdered B y: Rachelle Arredondo on 05-04-2024 Radiology Study observation (narrative) [facility] Urinalysis macro (dipstick) panel (U)on 04-26-2024 Bilirubin, UA Negative Negative - 4(70) +++ mg/dL [facility] Blood, UA Negative Negative - 50 Enrrique/mcL [facility] Clarity, UA Clear [facility] Color, UA Yellow [facility] Glucose, UA Negative Negative - 2000(110) ++++ mg/dL [facility] Interpretation and review of laboratory results Abnormal [facility] Ketones, UA Positive Negative - 160(16) ++++ mg/dL [facility] Leukocytes, UA Negative Negative - 500+++ Cam/mcL [facility] Nitrite, UA Negative Negative - Positive [facility] pH, UA 6.5 5 - 9 [facility] Protein, UA Negative Negative - 2000(20) ++++ mg/dL [facility] Spec Grav, UA 1.03 1 - 1.03 [facility] Urobilinogen, UA 1.0 0.2 - 12 mg/dL [facility] US OB LIMITED 1+ FETUSESon 0 04-21-2024 [...] II, MD, PHD at 22-Apr-2024 09:07:11 AM [facility] Normal Not Available Comment on above: Order Comment: US OB INCOMPLETE ANATOMY Estimated Date of Delivery: 08/11/24 Gestational Age as of 03/25/2024: 20w1d CBC AND AUTO DIFFon 04-20-19 ABSOLUTE BASOPHIL 0.0 X10E9/L Normal 0.0-0.2 [facility] Comment on above: Performed By: #### C BCA, 6-4, FEPR, 2131-10, 77932-9 ####[facility] ([id number])[address] [place] [address], [place] [address]#### THMET ####[facility] ([id number])5700 [facility], ABSOLUTE NEUTROPHIL 5.2 X10E9/L Normal 1.5-6.6 [facility] Comment on above: Performed By: #### C BCA, 6-4, FEPR, 2131-10, 19292-1 ####[facility] ([id number])[address] [place] [address], [place] [address]#### THMET ####[facility] ([id number])5700 [facility], Basophils/100 WBC (Bld) 0.4 % Normal [facility] Comment on above: Performed By: #### C BCA, 6-4, FEPR, 2131-10, 72503-8 ####[facility] ([id number])[address] [place] [address], [address] [place] [address]#### THMET ####[facility] ([id number])5700 [facility], Eosinophils (Bld) [#/Vol] 0.0 10*3/uL Normal 0.0-0.4 [facility] Comment on above: Performed By: #### C BCA, 2275-, FEPR, 2131-10, 19856-9 ####[facility] ([id number])[address] [place] [address], [address] [address]#### THMET ####[facility] ([id number])5700 [facility], Eosinophils/100 WBC (Bld) 0.6 % Normal [facility] Comment on above: Performed By: #### C BCA, 2275-4, FEPR, 2131-10, 72154-4 ####[facility] ([id number])[address] [place] [address], [address] [place] [address]#### THMET ####[facility] ([id number])5700 [facility], Erythrocyte distribution width (RBC) [Ratio] 14.6 % Normal 11.5-15.0 [facility] Comment on above: Performed By: #### C BCA, 2275-05, FEPR, 2131-10, 89974-6 ####[facility] ([id number])[address] [place], [place] [address]#### THMET ####[facility] ([id number])5700 [facility], Hematocrit (Bld) [Volume fraction] 32.4 % Low 35-47 [facility] Comment on above: Performed By: #### C BCA, 4, FEPR, 2131-10, 02887-2 ####[facility] ([id number])[address] [place] [address]#### THMET ####[facility] ([id number])5700 [facility], Hemoglobin (Bld) [Mass/Vol] 10.7 g/dL Low 11.7-15.5 [facility] Comment on above: Performed By: #### C BCA, 2275-4, FEPR, 2131-10, 70855-4 ####[facility] ([id number])[address] [place], [place] [address]#### THMET ####[facility] ([id number])5700 [facility], Lymphocytes (Bld) [#/Vol] 1.9 10*3/uL Normal 1.0-3.5 [facility] Comment on above: Performed By: #### C BCA, 2275-05, FEPR, 2131-10, 54925-9 ####[facility] ([id number])[address] [place] [address]#### THMET ####[facility] ([id number])5700 [facility], Lymphocytes/100 WBC (Bld) 24.8 % Normal [facility] Comment on above: Performed By: #### C BCA, 2275-05, FEPR, 2131-10, 40679-0 ####[facility] ([id number])[address] [place] [address]#### THMET ####[facility] ([id number])5700 [facility], MCH (RBC) [Entitic mass] 30.9 pg Normal 27-34 [facility] Comment on above: Performed By: #### C BCA, 2275-05, FEPR, 2131-10, 85527-1 ####[facility] ([id number])[address] [place] [address]#### THMET ####[facility] ([id number])5700 [facility], MCHC (RBC) [Mass/Vol] 33.0 g/dL Normal 32-36 [facility] Comment on above: Performed By: #### C BCA, 2275-4, FEPR, 2131-10, 87099-9 ####[facility] ([id number])2130 [facility] [address] [place] [address]#### THMET ####[facility] ([id number])5700 [facility], MCV (RBC) [Entitic vol] 94 fL Normal 80-100 [facility] Comment on above: Performed By: #### C BCA, 2275-05, FEPR, 2131-10, 67293-0 ####[facility] ([id number])[address] [address]#### THMET ####[facility] ([id number])5700 [facility], Monocytes (Bld) [#/Vol] 0.5 10*3/uL Normal 0-0.9 [facility] Comment on above: Performed By: #### C BCA, 2275-05, FEPR, 2131-10, 08476-6 ####[facility] ([id number])[address] [address]#### THMET ####[facility] ([id number])5700 [facility], Monocytes/100 WBC (Bld) 6.5 % Normal [facility] Comment on above: Performed By: #### C BCA, 2275-05, FEPR, 2131-10, 44247-6 ####[facility] ([id number])[address] [address]#### THMET ####[facility] ([id number])5700 [facility], Neutrophils/100 WBC (Bld) 67.7 % Normal [facility] Comment on above: Performed By: #### C BCA, 2275-05, FEPR, 2131-10, 45595-4 ####[facility] ([id number])[address] [place] [address], [address] [place] [address]#### THMET ####[facility] ([id number])5700 [facility], Platelet mean volume (Bld) [Entitic vol] 10.8 fL Normal 7-12 [facility] Comment on above: Performed By: #### C CRUZ, 2275-, FEPR, 2131-10, 12757-2 ####[facility] ([id number])[address] [place] [address], [address] [place] [address]#### THMET ####[facility] ([id number])[address] [place] [address], Platelets (Bld) [#/Vol] 162 10*3/uL Normal 150-450 [facility] Comment on above: Performed By: #### Elizabeth ARROYO, 2275-05, FEPR, 2131-10, 05255-6 ####[facility] ([id number])[address] [place] [address], [address] [place] [address]#### THMET ####[facility] ([id number])5700 [facility], RBC COUNT 3.46 X10E12/L Low 3.80-5.20 [facility] Comment on above: Performed By: #### Elizabeth ARROYO, 2275-05, FEPR, 2131-10, 55904-5 ####[facility] ([id number])[address] [place] [address], [address] [place] [address]#### THMET ####[facility] ([id number])5700 [facility], WBC (Bld) [#/Vol] 7.7 10*3/uL Normal 4.0-11.0 [facility] Comment on above: Performed By: #### C CRUZ, 2275-05, FEPR, 2131-10, 16074-9 ####[facility] ([id number])2130 [facility], [address] [place] [address]#### THMET ####[facility] ([id number])5700 [facility], FERRITINon 04-19-2024 Ferritin [Mass/Vol] 9 ng/mL Low 11-307 [facility] Comment on above: Performed By: #### C BCA, 6-4, FEPR, 2131-10, 85268-8 ####[facility] ([id number])2130 [facility] [address] [place] [address]#### THMET ####[facility] ([id number])5700 [facility], IRON PROFILEon 04-19-2024 Iron [Mass/Vol] 78 ug/dL Normal 50-170 [facility] Comment on above: Performed By: #### C BCA, 6-4, FEPR, 2131-10, 95261-4 ####[facility] ([id number])2130 [facility] [address] [place] [address]#### THMET ####[facility] ([id number])5700 [facility], IRON BINDING 475 ug/dL High 250-425 [facility] Comment on above: Performed By: #### C BCA, 6-4, FEPR, 2131-10, 84891-7 ####[facility] ([id number])2130 [facility], [address] [place] [address]#### THMET ####[facility] ([id number])5700 [facility], IRON SATURATION 16 % SATURATION Normal 15-50 [facility] Comment on above: Performed By: #### C BCA, 6-4, FEPR, 2131-10, 95461-0 ####[facility] ([id number])[address] [place] [address]#### THMET ####[facility] ([id number])5700 [facility], THIOPURINE METABOLITESon 6 METHYLMERCAPTOPRNE <475 Normal < or = 5700 [facility] Comment on above: Result Comment: NOTE Result not quantifiable; below the limit of quantitation.Decreased risk of hepatotoxicity. ADDITIONAL INFORMATION Testing performed by Liquid [employer]at[employer]-Tandem MassSpectrometry (LC-MS/MS)This test was developed and its performance characteristicsdetermined by [facility] in a manner consistent with CLIArequirements. This test has not been cleared or approved bythe U.S. Food and Drug Administration.Test Performed by:[address] [address] Director: Celi Fernandez Ph.D.; CLIA# [id number] Performed By: #### C BCA, 2276-4, FEPR, 2131-10, 84717-2 ####[facility] ([id number])[address] [place] [address]#### THMET ####[facility] ([id number])5700 [facility], 6 THIOGUANINE 101 pmol/8x10(8)RBC Low 235 - [address] [facility] Comment on above: Result Comment: NOTE Decreased possibility of response; suboptimal dosing ornoncompliance. Performed By: #### C BCA, 2276-4, FEPR, 2131-10, 10901-0 ####[facility] ([id number])[address] [place] [address]#### THMET ####[facility] ([id number])5700 [facility], VITAMIN B12on 04-19-2024 Cobalamin (Vitamin B12) [Mass/Vol] 143 pg/mL Low 180-914 [facility] Comment on above: Performed By: #### C BCA, 2276-4, FEPR, 2131-10, 45260-0 ####[facility] ([id number])[address] [place] [address], [address] [place] [address]#### THMET ####[facility] ([id number])[address] [place] [address], Vitamin D+Metabolites [Mass/ Vol]on 04-19-2024 VITAMIN D 25 HYD TOT 12.0 ng/mL Low 30-100 [facility] Comment on above: Result Comment: Viridiana min D status 25 [place] Vitamin D Deficiency <20 ng/mLInsufficiency 20-29 ng/mLSufficiency 30-100 ng/mLToxicity >100 ng/mLNOTE: A pediatric reference range has not beenestablished by the automotive title clerk of this kit.The [place] [employer] recommendsa Vitamin D level of = or >20ng/mL in infantsand children. Performed By: #### C BCA, 2276-4, FEPR, 2131-10, 05126-6 ####[facility] ([id number])[address] [place] [address], [address] [place] [address]#### THMET ####[facility] ([id number])[address] [place] [address], No Panel Informationon 03-24 Radiology Study observation (narrative) [facility] US OB ANATOMYon 03-24-[address] [address] Ultrasound Report Signed Patient: JUAN LUIS STOREY MR#: [id number] : 1990 Acct:[id number] Age/Sex: 33 / F ADM Date: 03/24/24 Loc: US Attending Dr: Parish Valdez D.O. Ordering Physician: Parish Valdez D.O. Date of Service: 03/24/24 Procedure(s): US OB anatomy Accession Number(s): [id number] cc: Parish Valdez D.O.; Hilary Aviles NP [address] [address] Patient Name: JUAN LUIS STOREY MRN: [facility]:[id number] date: 1990 Sex: F Assigned Patient Location: US Current Patient Location: US Accession/Order Number: [id number] Exam Date: 03/24/2024 10:45 Report Date: 03/24/2024 [...] Signed By: 03/24/24 1139 DD/ 1136 TD/TT: Procedures Analyst: [facility] Radiology, Radiologi MD perla - 03/24/2024 [place] [address] Ultrasound Report Signed Patient: JUAN LUIS STOREY MR#: [id number] : 1990 Acct:[id number] Age/Sex: 33 / F ADM Date: 03/24/24 Loc: US Attending Dr: Parish Valdez D.O. Ordering Physician: Parish Valdez D.O. Date of Service: 03/24/24 Procedure(s): US OB anatomy Accession Number(s): [id number] cc: Parish Valdez D.O.; Hilary Aviles NP The [place] [address] Patient Name: JUAN LUIS STOREY MRN: [facility]:[id number] date: 1990 Sex: F Assigned Patient Location: Current Patient Location: US Accession/Order Number: [id number] Exam Date: 03/24/2024 10:45 Report Date: 03/24/2024 [...] Signed By: 03/24/24 1139 DD/ 1136 TD/TT: Procedures Analyst: [email or web address] US OB ANATOMYOrdered By: Sergio english Radiology on 03-24-2024 [email or web address] Work Phone: US OB CERVICAL LENGTHon 03-[address] [address] Ultrasound Report Signed Patient: JUAN LUIS STOREY MR#: [id number] : 1990 Acct:[id number] Age/Sex: 33 / F ADM Date: 03/24/24 Loc: US Attending Dr: Parish Valdez D.O. Ordering Physician: Parish Valdez D.O. Date of Service: 03/24/24 Procedure(s): US OB cervical length Accession Number(s): [id number] cc: Parish Valdez D.O.; Hilary Aviles NP The [address] [address] Patient Name: JUAN LUIS STOREY MRN: [facility]:[id number] date: 1990 Sex: F Assigned Patient Location: US Current Patient Location: US Accession/Order Number: [id number] Exam Date: 03/24/2024 10:45 Report Date: 03/24/2024 [...] Signed By: 03/24/24 1138 DD/ 1136 TD/TT: Procedures Analyst: [facility] Radiology, Radiologi MD perla - 03/24/2024 [place] [address] Ultrasound Report Signed Patient: JUAN LUIS STOREY MR#: [id number] : 1990 Acct:[id number] Age/Sex: 33 / F ADM Date: 03/24/24 Loc: US Attending Dr: Parish Valdez D.O. Ordering Physician: Parish Valdez D.O. Date of Service: 03/24/24 Procedure(s): US OB cervical length Accession Number(s): [id number] cc: Parish Valdez D.O.; Hilary Aviles NP [facility] [place] [id number] Patient Name: JUAN LUIS STOREY MRN: [facility]:[id number] date: 1990 Sex: F Assigned Patient Location: US Current Patient Location: US Accession/Order Number: [id number] Exam Date: 03/24/2024 10:45 Report Date: 03/24/2024 [...] Signed By: 03/24/24 1138 DD/ 1136 TD/TT: Procedures Analyst: [facility] US OB CERVICAL LENGTHOrdered By: Radiologist Radiology on 03-24-2024 [facility] Work Phone: Ultrasound - OfficeOrdered B y: Rachelle Rodrigueses on 03-24-2024 [facility] Unlisted Lab Teston 03-24-19 [facility] RECURRENT VAGINITIS (HTRX)on 03-18-2024 ATOPOBIUM VAGINAE 0 [facility] ATOPOBIUM VAGINAE Not detected [facility] BVAB 2,3 (BACTERIAL VAGINOSIS ASSOCIATED BACTERIA 2, 3); MOBILUNCUS SPP 0 [facility] BVAB 2,3 (BACTERIAL VAGINOSIS ASSOCIATED BACTERIA 2, 3); MOBILUNCUS SPP Not detected [facility] WARD ALBICANS, PARAPSILOSIS, TROPICALIS 0 [facility] WARD ALBICANS, PARAPSILOSIS, TROPICALIS Not detected [facility] WARD GLABRATA 0 [facility] WARD GLABRATA Not detected [facility] WARD KRUSEI 0 [facility] WARD KRUSEI Not detected [facility] CHLAMYDIA TRACHOMATIS 0 [facility] CHLAMYDIA TRACHOMATIS Not detected [facility] GARDNERELLA VAGINALIS 0 [facility] GARDNERELLA VAGINALIS Not detected [facility] MEGASPHAERA (TYPES 1, 2) 0 [facility] MEGASPHAERA (TYPES 1, 2) Not detected [facility] MYCOPLASMA GENITALIUM 0 [facility] MYCOPLASMA GENITALIUM Not detected [facility] NEISSERIA GONORRHOEAE 0 [facility] NEISSERIA GONORRHOEAE Not detected [facility] TRICHOMONAS VAGINALIS 0 [facility] TRICHOMONAS VAGINALIS Not detected [facility] US OB CERVICAL LENGTHon 02-12 [place] [address] Ultrasound Report Signed Patient: JUAN LUIS STOREY MR#: [id number] : 1990 Acct:[id number] Age/Sex: 33 / F ADM Date: 03/11/24 Loc: US Attending Dr: Parish Valdez D.O. Ordering Physician: Parish Valdez D.O. Date of Service: 03/11/24 Procedure(s): US OB cervical length Accession Number(s): [id number] cc: Parish Valdez D.O.; Hilary Aviles NP [place] [id number] Patient Name: JUAN LUIS STOREY MRN: [facility]:[id number] date: 1990 Sex: F Assigned Patient Location: US Current Patient Location: US Accession/Order Number: [id number] Exam Date: 03/11/2024 10:15 Report Date: 03/11/2024 [...] Signed By: 03/11/24 1056 DD/ 1053 TD/TT: Procedures Analyst: [facility] Radiology, Radiologi MD perla - 03/11/2024 [place] [address] Ultrasound Report Signed Patient: JUAN LUIS STOREY MR#: [id number] : 1990 Acct:[id number] Age/Sex: 33 / F ADM Date: 03/11/24 Loc: US Attending Dr: Parish Valdez D.O. Ordering Physician: Parish Valdez D.O. Date of Service: 03/11/24 Procedure(s): US OB cervical length Accession Number(s): [id number] cc: Parish Valdez D.O.; Hilary Aviles NP [facility] [place] [address] Patient Name: JUAN LUIS STOREY MRN: [facility]:[id number] date: 1990 Sex: F Assigned Patient Location: US Current Patient Location: US Accession/Order Number: [id number] Exam Date: 03/11/2024 10:15 Report Date: 03/11/2024 [...] By: Luis Valera M.D. Signed By: 03/11/24 105 DD/ 105 TD/TT: Procedures Analyst: [facility] Radiology Study observation (narrative) [facility] US OB CERVICAL LENGTHOrdered By: Radiologist Radiology on 03-11-2024 [facility] Work Phone: Urinalysis macro (dipstick) panel (U)on 02-18-2024 Bilirubin, UA Negative Negative - 4(70) +++ mg/dL [facility] Blood, UA Positive Negative - 50 Enrrique/mcL [facility] Comment on above: trace Clarity, UA Clear [facility] Color, UA Yellow [facility] Glucose, UA Negative Negative - 1999(110) ++++ mg/dL [facility] Interpretation and review of laboratory results Abnormal [facility] Ketones, UA Positive Negative - 160(16) ++++ mg/dL [facility] Comment on above: trace Leukocytes, UA Trace Negative - 500+++ Cam/mcL [facility] Nitrite, UA Negative Negative - Positive [facility] pH, UA 7 5 - 9 [facility] Protein, UA Positive Negative - 1999(20) ++++ mg/dL [facility] Comment on above: 30 Spec Grav, UA 1.03 1 - 1.03 [facility] Urobilinogen, UA 1.0 0.2 - 12 mg/dL [facility] ALL CBC WITH AUTO DIFFon BASOPHILS ABSOLUTE AUTO 0 [facility] Basophils/100 WBC (Bld) 0.2 % 0.2 - 2.0 % [facility] Eosinophils/100 WBC (Bld) 0.9 % 0.9 - 7.0 % [facility] Erythrocyte distribution width (RBC) [Ratio] 12.5 % 11.0 - 15.0 % [facility] Hematocrit (Bld) [Volume fraction] 35.3 % Low 36.0 - 48.0 % [facility] Hemoglobin (Bld) [Mass/Vol] 11.8 g/dL Low 12.0 - 16.0 g/dL [facility] IMMATURE GRANULOCYTES ABS AUTO 0.03 [facility] Immature granulocytes/100 WBC (Bld) 0.4 % 0.0 - 0.5 % [facility] Interpretation and review of laboratory results Abnormal [facility] LYMPHOCYTES ABSOLUTE AUTO 2.4 [facility] Lymphocytes/100 WBC (Bld) 29.2 % 20.5 - 60.0 % [facility] MCH (RBC) [Entitic mass] 32 pg 26.7 - 34.0 pg [facility] MCHC (RBC) [Mass/Vol] 33.4 g/dL 29.9 - 35.2 g/dL [facility] MCV (RBC) [Entitic vol] 95.7 fL 81.0 - 99.0 fL [facility] MONOCYTES ABSOLUTE AUTO 0.5 [facility] Monocytes/100 WBC (Bld) 6.5 % 1.7 - 12.0 % [facility] NEUTROPHILS ABSOLUTE AUTO 5.1 [facility] Neutrophils/100 WBC (Bld) 62.8 % 43.0 - 75.0 % [facility] Platelet mean volume (Bld) [Entitic vol] 12 fL 9.5 - 13.5 fL [facility] TBH EO # 0.1 [facility] PLT 194 [facility] TB RBC 3.69 Low [facility] WBC 8.2 [facility] CLINISY[facility] No Panel Informationon 02-13 [facility] Rubella IGG immune statuson 02-14-2024 Rubella immune IgG immune [facility] Syphilis Total(Unknown Syphi lis Status)Ordered By: Rachelle Arredondo on 02-14-2024 Syphilis Non-Reactive [facility] BASIC METABOLIC PANLon 01-25 Anion gap [Moles/Vol] 9 mmol/L Normal 5-15 [facility] Comment on above: Performed By: #### C , 2131-10, LIVR, BMP, 07263-1, 1987-06, 65846-6 ####[facility] ([id number])[address] [place] [address]#### THMET ####[facility] ([id number])5700 [facility], Calcium [Mass/Vol] 8.6 mg/dL Normal 8.5-10.5 [facility] Comment on above: Performed By: #### C BREANNA, 2131-10, LIVR, BMP, 62326-1, 1987-06, 71642-6 ####[facility] ([id number])[address] [place] [address], [place] [address]#### THMET ####[facility] ([id number])5700 [facility], Chloride [Moles/Vol] 104 mmol/L Normal 98-109 [facility] Comment on above: Performed By: #### C BREANNA, 2131-10, LIVR, BMP, 99181-5, 1987-06, 22243-6 ####[facility] ([id number])[address] [place] [address]#### THMET ####[facility] ([id number])[address] [place] [address], CO2 [Moles/Vol] 21 mmol/L Low 22-32 [facility] Comment on above: Performed By: #### C BREANNA, 2131-10, LIVR, BMP, 61587-3, 1987-06, 78269-2 ####[facility] ([id number])[address] [place] [address]#### THMET ####[facility] ([id number])[address] [place] [address], Creatinine [Mass/Vol] 0.56 mg/dL Normal 0.40-1.00 [facility] Comment on above: Result Comment: METH OD TRACEABLE TO IDMS STANDARD Performed By: #### C BREANNA, 2131-10, LIVR, BMP, 13501-4, 1987-06, 24438-8 ####[facility] ([id number])[address] [place] [address]#### THMET ####[facility] ([id number])[address] [place] [address], eGFR (CKD-EPI) NON-RACE DEPENDENT >90 Normal >59 [facility] Comment on above: Result Comment: Repo rted eGFR is based on theCKD-EPI 2020 equation that doesnot use a race coefficient. Performed By: #### C BREANNA, 2131-10, LIVR, BMP, 17310-7, 1987-06, 63900-7 ####[facility] ([id number])[address] [place], [place] [address]#### THMET ####[facility] ([id number])5700 [facility], Glucose [Mass/Vol] 73 mg/dL Normal 65-99 [facility] Comment on above: Performed By: #### C BREANNA, 2131-10, LIVR, BMP, 04792-4, 1987-06, 35017-8 ####[facility] ([id number])[address] [place] [address], [address] [place] [address]#### THMET ####[facility] ([id number])5700 [facility], Potassium [Moles/Vol] 3.8 mmol/L Normal 3.5-5.0 [facility] Comment on above: Performed By: #### C BREANNA, 2131-10, LIVR, BMP, , 1987-06, 18004-2 ####[facility] ([id number])[address] [place] [address], [address] [place] [address]#### THMET ####[facility] ([id number])5700 [facility], Sodium [Moles/Vol] 134 mmol/L Normal 134-146 [facility] Comment on above: Performed By: #### C BREANNA, 2131-10, LIVR, BMP, 35149-1, 1987-06, 45752-4 ####[facility] ([id number])[address] [place] [address], [address] [place] [address]#### THMET ####[facility] ([id number])5700 [facility], Urea nitrogen [Mass/Vol] 6 mg/dL Normal 5-23 [facility] Comment on above: Performed By: #### Elizabeth CARLOS, 2131-10, LIVR, BMP, 20794-3, 1987-06, 24824-6 ####[facility] ([id number])[address] [place] [address], [address] [place] [address]#### THMET ####[facility] ([id number])5700 [facility], COMPLETE BLOOD COUNTon 01-25 Erythrocyte distribution width (RBC) [Ratio] 13.7 % Normal 11.5-15.0 [facility] Comment on above: Performed By: #### C BREANNA, 2131-10, LIVR, BMP, 25242-0, 1987-06, 07794-8 ####[facility] ([id number])[address] [address]#### THMET ####[facility] ([id number])5700 [facility], Hematocrit (Bld) [Volume fraction] 38.5 % Normal 35-47 [facility] Comment on above: Performed By: #### Elizabeth CARLOS, 2131-10, LIVR, BMP, 61556-7, 1987-06, 03256-5 ####[facility] ([id number])[address] [address]#### THMET ####[facility] ([id number])5700 [facility], Hemoglobin (Bld) [Mass/Vol] 12.8 g/dL Normal 11.7-15.5 [facility] Comment on above: Performed By: #### Elizabeth CARLOS, 2131-10, LIVR, BMP, 06897-4, 1987-06, 21784-4 ####[facility] ([id number])[address] [address]#### THMET ####[facility] ([id number])5700 [facility], MCH (RBC) [Entitic mass] 32.5 pg Normal 27-34 [facility] Comment on above: Performed By: #### C BREANNA, 2131-10, LIVR, BMP, 49890-9, 1987-06, 66572-1 ####[facility] ([id number])[address] [place] [address]#### THMET ####[facility] ([id number])5700 [facility], MCHC (RBC) [Mass/Vol] 33.3 g/dL Normal 32-36 [facility] Comment on above: Performed By: #### C BREANNA, 2131-10, LIVR, BMP, 79060-9, 1987-06, 70266-2 ####[facility] ([id number])[address] [place] [address]#### THMET ####[facility] ([id number])5700 [facility], MCV (RBC) [Entitic vol] 98 fL Normal 80-100 [facility] Comment on above: Performed By: #### C BREANNA, 2131-10, LIVR, BMP, 65657-1, 1987-06, 30914-0 ####[facility] ([id number])[address] [place] [address]#### THMET ####[facility] ([id number])5700 [facility], Platelet mean volume (Bld) [Entitic vol] 11.2 fL Normal 7-12 [facility] Comment on above: Performed By: #### C BC, 2131-10, LIVR, BMP, 44397-8, 1987-06, 86793-2 ####[facility] ([id number])[address] [place] [address]#### THMET ####[facility] ([id number])5700 [facility], Platelets (Bld) [#/Vol] 108 10*3/uL Low 150-450 [facility] Comment on above: Performed By: #### C BC, 2131-10, LIVR, BMP, 40209-2, 1987-06, 20203-2 ####[facility] ([id number])[address] [place] [address]#### THMET ####[facility] ([id number])5700 [facility], RBC COUNT 3.95 X10E12/L Normal 3.80-5.20 [facility] Comment on above: Performed By: #### C BC, 2131-10, LIVR, BMP, 27224-5, 1987-06, 43315-6 ####[facility] ([id number])[address] [place] [address]#### THMET ####[facility] ([id number])[address] [place] [address], WBC (Bld) [#/Vol] 7.2 10*3/uL Normal 4.0-11.0 [facility] Comment on above: Performed By: #### C BREANNA, 2131-10, LIVR, BMP, 18727-9, 1987-06, 33125-1 ####[facility] ([id number])[address] [place] [address]#### THMET ####[facility] ([id number])[address] [place] [address], CRP [Mass/Vol]on 01-26-2024 C REACTIVE PROTEIN 0.7 mg/dL Normal 0.000-0.744 [facility] Comment on above: Performed By: #### C BC, 2131-10, LIVR, BMP, 89857-1, 1987-06, 09167-1 ####[facility] ([id number])[address] [place] [address]#### THMET ####[facility] ([id number])5700 [facility], ESR Photometric method (Bld) [Velocity]on 01-26-2024 ESR, ERYTHROCYTE SEDIMENTATION RATE 1 mm/h Normal 0-20 [facility] Comment on above: Performed By: #### Elizabeth CARLOS, 2131-10, LIVR, BMP, 91719-7, 1987-06, 02123-7 ####[facility] ([id number])[address] [place] [address], [address] [place] [address]#### THMET ####[facility] ([id number])5700 [facility], LIVER PANELon 01-26-2024 Albumin [Mass/Vol] 3.7 g/dL Normal 3.2-5.3 [facility] Comment on above: Performed By: #### Elizabeth CARLOS, 2131-10, LIVR, BMP, 29449-9, 1987-06, 57618-2 ####[facility] ([id number])[address] [place] [address], [address] [place] [address]#### THMET ####[facility] ([id number])5700 [facility], ALP [Catalytic activity/Vol] 29 U/L Low 39-130 [facility] Comment on above: Performed By: #### Elizabeth CARLOS, 2131-10, LIVR, BMP, 21191-9, 1987-06, 75014-2 ####[facility] ([id number])2130 [facility], [address] [place], [place] [address]#### THMET ####[facility] ([id number])5700 [facility], ALT [Catalytic activity/Vol] 8 U/L Normal 0-31 [facility] Comment on above: Performed By: #### Elizabeth CARLOS, 2131-10, LIVR, BMP, 02025-2, 1987-06, 53231-9 ####[facility] ([id number])2130 [facility], [address] [place] [address]#### THMET ####[facility] ([id number])5700 [facility], AST [Catalytic activity/Vol] 19 U/L Normal 0-41 [facility] Comment on above: Performed By: #### C BREANNA, 2131-10, LIVR, BMP, 19277-8, 1987-06, 00060-1 ####[facility] ([id number])2130 [facility], [address] [place] [address]#### THMET ####[facility] ([id number])5700 [facility], Bilirubin [Mass/Vol] 0.4 mg/dL Normal 0.3-1.2 [facility] Comment on above: Performed By: #### Elizabeth CARLOS, 2131-10, LIVR, BMP, 65720-8, 1987-06, 57298-0 ####[facility] ([id number])[address] [place] [address], [address] [place] [address]#### THMET ####[facility] ([id number])5700 [facility], Bilirubin.direct [Mass/Vol] 0.1 mg/dL Normal 0.0-0.4 [facility] Comment on above: Performed By: #### Elizabeth CARLOS, 2131-10, LIVR, BMP, 37231-8, 1987-06, 19785-2 ####[facility] ([id number])[address] [place] [address], [address] [place] [address]#### THMET ####[facility] ([id number])5700 [facility], Protein [Mass/Vol] 7.0 g/dL Normal 6.0-8.0 [facility] Comment on above: Performed By: #### Elizabeth CARLOS, 2131-10, LIVR, BMP, 82502-7, 1987-06, 49117-8 ####[facility] ([id number])[address] [place] [address]#### THMET ####[facility] ([id number])5700 [facility], THIOPURINE METABOLITESon 6 THIOGUANINE Not performed Normal [facility] Comment on above: Result Comment: NOTE Thiopurine Metabolites, B was cancelled on 02/02/2024 at16:27; Quantity not sufficient to test.Test Performed by:[address] Director: Celi Fernandez Ph.D.; CLIA# [id number] Performed By: #### C BREANNA, 2131-10, LIVR, BMP, 87271-6, 1987-06, 98667-3 ####[facility] ([id number])[address] [place] [address], [address] [address]#### THMET ####[facility] ([id number])5700 [facility], VITAMIN B12on 01-26-2024 Cobalamin (Vitamin B12) [Mass/Vol] 239 pg/mL Normal 180-914 [facility] Comment on above: Performed By: #### C BC, 2131-10, LIVR, BMP, 08623-7, 1987-06, 08836-3 ####[facility] ([id number])[address] [place] [address], [address] [address]#### THMET ####[facility] ([id number])5700 [facility], Vitamin D+Metabolites [Mass/ Vol]on 01-26-2024 VITAMIN D 25 HYD TOT 10.1 ng/mL Low 30-100 [facility] Comment on above: Result Comment: [place] min D status 25 [place] Vitamin D Deficiency <20 ng/mLInsufficiency 20-29 ng/mLSufficiency 30-100 ng/mLToxicity >100 ng/mLNOTE: A pediatric reference range has not beenestablished by the automotive title clerk of this kit.The [place] [employer] recommendsa Vitamin D level of = or >20ng/mL in infantsand children. Performed By: #### C , 2131-10, LIVR, BMP, 67401-4, 1987-, 16358-3 ####[facility] ([id number])2130 [facility], [address] [place] [address]#### MET ####[facility] ([id number])[address] [place] [address], HCG ( test) Ql (U)o n 01-23-2024 Interpretation and review of laboratory results Abnormal [facility] Preg Test, Ur Positive Negative [facility] Urinalysis macro (dipstick) panel (U)on 01-23-2024 Bilirubin, UA Negative Negative - 4(70) +++ mg/dL [facility] Blood, UA Positive Negative - 50 Enrrique/mcL [facility] Clarity, UA Clear [facility] Color, UA Yellow [facility] Glucose, UA Negative Negative - 1999(110) ++++ mg/dL [facility] Interpretation and review of laboratory results Abnormal [facility] Ketones, UA Positive Negative - 160(16) ++++ mg/dL [facility] Leukocytes, UA Negative Negative - 500+++ Cam/mcL [facility] Nitrite, UA Negative Negative - Positive [facility] pH, UA 7 5 - 9 [facility] Protein, UA Trace Negative - 1999(20) ++++ mg/dL [facility] Spec Grav, UA 1.015 1 - 1.03 [facility] Urobilinogen, UA 1.0 0.2 - 12 mg/dL [facility] KAY FECAL OCCULT BLDon 01-02 Hemoglobin.gastroin testinal Ql (Stl) Negative Normal [facility]G [facility] Comment on above: Performed By: #### 2 335-8 #### [facility] ([id number]) [address] [facility], [place] [address] CBC AND AUTO DIFFon --20 24 ABSOLUTE BASOPHIL 0.0 X10E9/L Normal 0.0-0.2 [facility] Comment on above: Performed By: #### F EPR, 2275-, CBCA #### [facility] ([id number]) [address], [address] [place] [address] ABSOLUTE NEUTROPHIL 1.9 X10E9/L Normal 1.5-6.6 [facility] Comment on above: Performed By: #### F EPR, 2275-05, CBCA #### [facility] ([id number]) [address], [facility] [address] [place] [address] Basophils/100 WBC (Bld) 0.5 % Normal [facility] Comment on above: Performed By: #### F EPR, 2275-05, CBCA #### [facility] ([id number]) [address], [facility] [address] [place] [address] Eosinophils (Bld) [#/Vol] 0.1 10*3/uL Normal 0.0-0.4 [facility] Comment on above: Performed By: #### F EPR, 2275-05, CBCA #### [facility] ([id number]) [address], [facility] [address] [place] [address] Eosinophils/100 WBC (Bld) 2.3 % Normal [facility] Comment on above: Performed By: #### F EPR, 2275-05, CBCA #### [facility] ([id number]) [address], [address] [place] [address] Erythrocyte distribution width (RBC) [Ratio] 13.3 % Normal 11.5-15.0 [facility] Comment on above: Performed By: #### F EPR, 2275-05, CBCA #### [facility] ([id number]) [address], [address] [place] [address] Hematocrit (Bld) [Volume fraction] 36.2 % Normal 35-47 [facility] Comment on above: Performed By: #### F EPR, 2275-4, CBCA #### [facility] ([id number]) [address], [address] [place] [address] Hemoglobin (Bld) [Mass/Vol] 12.8 g/dL Normal 11.7-15.5 [facility] Comment on above: Performed By: #### F EPR, 2275-, CBCA #### [facility] ([id number]) [address], [address] [place] [address] Lymphocytes (Bld) [#/Vol] 2.3 10*3/uL Normal 1.0-3.5 [facility] Comment on above: Performed By: #### F EPR, 2275-05, CBCA #### [facility] ([id number]) [address], [address] [place] [address] Lymphocytes/100 WBC (Bld) 47.4 % Normal [facility] Comment on above: Performed By: #### F EPR, 2275-05, CBCA #### [facility] ([id number]) [address], [address] [place] [address] MCH (RBC) [Entitic mass] 33.2 pg Normal 27-34 [facility] Comment on above: Performed By: #### F EPR, 2275-, CBCA #### [facility] ([id number]) [address], [address] [place] [address] MCHC (RBC) [Mass/Vol] 35.5 g/dL Normal 32-36 [facility] Comment on above: Performed By: #### F EPR, 2275-, CBCA #### [facility] ([id number]) [address], [address] [place] [address] MCV (RBC) [Entitic vol] 94 fL Normal 80-100 [facility] Comment on above: Performed By: #### F EPR, 2275-05, CBCA #### [facility] ([id number]) [address], [address] [place] [address] Monocytes (Bld) [#/Vol] 0.4 10*3/uL Normal 0-0.9 [facility] Comment on above: Performed By: #### F EPR, 2275-05, CBCA #### [facility] ([id number]) [address], [facility] [address] [place] [address] Monocytes/100 WBC (Bld) 9.1 % Normal [facility] Comment on above: Performed By: #### F EPR, 2275-05, CBCA #### [facility] ([id number]) [address], [facility] [address] [place] [address] Neutrophils/100 WBC (Bld) 40.7 % Normal [facility] Comment on above: Performed By: #### F EPR, 2275-05, CBCA #### [facility] ([id number]) [address], [address] [place] [address] Platelet mean volume (Bld) [Entitic vol] 11.1 fL Normal 7-12 [facility] Comment on above: Performed By: #### F EPR, 2275-05, CBCA #### [facility] ([id number]) [address], [address] [place] [address] Platelets (Bld) [#/Vol] 187 10*3/uL Normal 150-450 [facility] Comment on above: Performed By: #### F EPR, 2275-05, CBCA #### [facility] ([id number]) [address], [address] [place] [address] RBC COUNT 3.87 X10E12/L Normal 3.80-5.20 [facility] Comment on above: Performed By: #### F EPR, 2275-, CBCA #### [facility] ([id number]) [address], [address] [place] [address] WBC (Bld) [#/Vol] 4.8 10*3/uL Normal 4.0-11.0 [facility] Comment on above: Performed By: #### F EPR, 2275-, CBCA #### [facility] ([id number]) [address], [address] [place] [address] FERRITINon 12-01-2023 Ferritin [Mass/Vol] 12 ng/mL Normal 11-307 [facility] Comment on above: Performed By: #### F EPR, 2275-, CBCA #### [facility] ([id number]) [address] [place] [address] IRON PROFILEon 12-01-2023 Iron [Mass/Vol] 74 ug/dL Normal 50-170 [facility] Comment on above: Performed By: #### F EPR, 2275-, CBCA #### [facility] ([id number]) [address], [address] [place] [address] IRON BINDING 344 ug/dL Normal 250-425 [facility] Comment on above: Performed By: #### F EPR, 2275-4, CBCA #### [facility] ([id number]) [address], [address] [place] [address] IRON SATURATION 21 % SATURATION Normal 15-50 [facility] Comment on above: Performed By: #### F EPR, 2275-, CBCA #### [facility] ([id number]) [address], [address] [place] [address] PAP ACOG PANEL 2: 30 to 65on 05-07-2022 . . Normal [facility] Comment on above: Result Comment: Perf ormed at: WB Performed By: #### 4 [id number] #### [facility] [address] [address] [address] Bisi Glass Age Gdln ACOG Testing 30-65 Normal [facility] Comment on above: Performed By: #### 4 [id number] #### [facility] [address] [place] [address] Dr. Bisi Glass DIAGNOSIS: Comment Normal [facility] Comment on above: Result Comment: NEGA TIVE FOR INTRAEPITHELIAL LESION OR MALIGNANCY. Performed at: WB Performed By: #### 4 [id number] #### [facility] [address] [address] [address] Bisi Glass HPV Aptima Negative Normal Negative [facility] Comment on above: Result Comment: This nucleic acid amplification test detects fourteen high-risk HPV types (16,18,31,33,35,39,45,51,52,56,58,59,66,68) without differentiation. Performed at: =G Performed By: #### 4 [id number] #### [facility] [address] [address] [address] Bisi Glass HPV Genotype Reflex Comment Normal [facility] Comment on above: Result Comment: Crit eria not met, HPV Genotype not performed. Performed at: WB Performed By: #### 4 [id number] #### [facility] [address] [place] [address] Dr. Bisi Glass Methodology: Comment Normal [facility] Comment on above: Result Comment: This liquid based ThinPrep(R) pap test was screened with the use of an image guided system. Performed at: WB Performed By: #### 4 [id number] #### [facility] [address] [place] [address] Dr. Bisi Glass Note: Comment Normal [facility] Comment on above: Result Comment: The Pap smear is a screening test designed to aid in the detection of premalignant and malignant conditions of the uterine cervix. It is not a diagnostic procedure and should not be used as the sole means of detecting cervical cancer. Both false-positive and false-negative reports do occur. . Performed at: WB Performed By: #### 4 [id number] #### [facility] [address] [address] [address] Bisi Glass Performed by: Comment Normal [facility] Comment on above: Result Comment: Ngozi Hamlin, Capacity Planning Manager (ASCP) Performed at: WB Performed By: #### 4 [id number] #### [facility] [address] [address] [address] Bisi Glass Specimen adequacy: Comment Normal [facility] Comment on above: Result Comment: Sati sfactory for evaluation. Endocervical and/or squamous metaplastic cells (endocervical component) are present. Performed at: WB Performed By: #### 4 [id number] #### [facility] [address] [address] [address] Bisi Glass [facility] 02-11-2017 [facility] Letter [facility] [address] [address]Wxamf: [phone]: [facility] [place] [place], [place] [address]Zmyxf: [phone]: [phone] [place], [place] [address]Vldkv: [phone]: To Free: [phone] [email or web address] Raza Roldan M.D., Jhon Mora M.D.Barry Camarena M.D.Samara Hernandez D.O..Oksana Benson M.D.Nati Sullivan M.D. Matt Bobby M.D.February 11, [address] [address]Izfl Ms. Storey,You missed your scheduled appointment on Saturday February 11, 2017. Pleasecall our office to reschedule. If you need to cancel any futureappointments, please call to give us 24 hour notice so that we can offer yourappointment to another patient.Sincerely,Samara Canales M.D. [facility] 12-03-2016 [facility] (HEMT[facility]) JUAN LUIS STOREY ([id number]) 1990 FDate Time Provider Vaadrruram31/24/17 1:00 PM CHAIR 1 JOSE HEMTCL During your visit today, we recorded the following information about you: Temperature Pulse Respiration Blood pressure 98.9 degrees 76/minute 18/minute 97/64Referring Provider: SAMARA HERNANDEZ [[id number]]Allergies As of Date: 12/03/2016(No Known Allergies)Date Reviewed: 12/03/2016Reviewed by: Kristi (Rn) JAD Partida - Fully AssessedPrimary Visit Diagnosis:Anemia, unspecified type [D64.9]Order(s):TREATMENT PARAMETER-NOT NEEDED [8640834] Order #: [id number]: 1 HEMONC NURSING COMMUNICATION [9990214] Order #: [id number]: 1 STANDING HEMONC NURSING COMMUNICATION [9990214] Order #: [id number]: 1 STANDING HEMONC NURSING COMMUNICATION [9990214] Order #: [id number]: 1 STANDING HEMONC NURSING COMMUNICATION [9990214] Order #: [id number]: 1 STANDING HEMONC NURSING COMMUNICATION [9990214] Order #: [id number]: 1 STANDING HEMONC NURSING COMMUNICATION [9990214] Order #: [id number]: 1 STANDING [] iron sucrose 200 mg [...] (1 ML) INJECTION* 12/03/2016 Route: INTRAMUSCULAEncounter Number: [id number] Status:Closed by KRISTI PARTIDA on 12/03/16 [facility] CNOVSPon 11-19-2016 CNOVSP Visit (SP) Office (HEMACL) JUAN LUIS STOREY ([id number]) 1990 [facility] Time Provider Zxddxyvghg26/10/17 11:00 AM SAMARA HERNANDEZ HEMACL During your visit today, we recorded the following information about you: Temperature Pulse Respiration Blood pressure 97.8 degrees 78/minute 18/minute 96/61 Weight Height 59.6 kg 1.632 Clara Berger 11/19/2016 11:15 AM SignedPatient states feeling more fatigue.Samara Hernandez DO 11/23/2016 9:43 AM SignedPATIENT NAME: Juan Luis StoreyMRN: [id number] PHYSICIAN: IFTIKHAR RAZO[address] [place] [address] CARE PHYSICIAN: Iftikhar García ImmOTHER PHYSICIANS:CHIEF COMPLAINT: [...] PRESENT ILLNESS: This is a 26year old -Vietnamese femaleCBC from 05/22/16 reveals white blood cell [...] her second kid in dec 2014.Works a [employer] service.June 04, 2016Eats a bag of ice [...] I answered all questions satisfactorily..Mariano Hernandez D.O.Medical OncologistBag[place], [place]Referring Provider: SAMARA HERNANDEZ [[id number]]Allergies As of Date: 11/19/2016(No Known Allergies)Date Reviewed: [...] Status:Closed by SAMARA HERNANDEZ DO on 11/23/16 [facility] PROGRESSon 11-19-2016 PROGRESS HNO ID: [id number] thor: Samara HernandezSerlynseye: (none)Author Type: PhysicianType: Progress NotesFiled: 11/23/2016 9:43 AMNote Text:PATIENT NAME: Juan Luis StoreyMRN: [id number] PHYSICIAN: IFTIKHAR RAZO[address] [place] [address] CARE PHYSICIAN: Iftikhar RazoOTHER PHYSICIANS:CHIEF COMPLAINT: Anemia, [...] PRESENT ILLNESS: This is a 26year old -Vietnamese femaleCBC from 05/22/16 reveals white blood cell [...] her second kid in dec 2014.Works a [employer] service.June 04, 2016Eats a bag of ice [...] I answered all questions satisfactorily..Mariano Hernandez D.O.Medical Oncologist[place], [place] Normal [facility] Remote CBCDIF (for [facility] use o nly)on 11-19-2016 Abs Baso 0.02 k/uL Normal <0.11 [facility] Abs [place] 0.40 k/uL Normal 0.00-0.86 [facility] Abs Neut 3.13 k/uL Normal 1.45-7.50 [facility] Basophils/100 WBC Auto (Bld) 0.4 % Normal [facility] Eosinophils 0.05 10*3/uL Normal <0.46 [facility] Eosinophils/100 leukocytes 0.9 % Normal [facility] Erythrocyte distribution width Auto Ratio (RBC) 13.5 % Normal 11.5-15.0 [facility] Erythrocytes (RBC) 3.87 10*6/uL Low 3.90-[facility].20 [facility] Hematocrit (HCT) 33.0 % Low 36.0-46.0 [facility] Hemoglobin mass conc (Bld) 10.5 g/dL Low 11.5-15.5 [facility] Lymphocytes 1.70 10*3/uL Normal 1.00-4.00 [facility] Lymphocytes/100 leukocytes 32.1 % Normal [facility] MCH 27.1 pG Normal 26.0-34.0 [facility] MCHC mass conc (RBC) 31.8 g/dL Normal 30.5-36.0 [facility] MCV 85.3 fL Normal 80.0-100.0 [facility] Monocytes/100 leukocytes 7.5 % Normal [facility] Neutrophils/100 WBC Auto (Bld) 59.1 % Normal [facility] Platelet mean volume (PMV) 11.0 fL Normal 9.0-12.7 [facility] Platelets 288 10*3/uL Normal 150-400 [facility] WBC (Leukocytes) 5.30 10*3/uL Normal 3.70-11.00 [facility] Remote iSTAT BMP (for [facility] us e only)on 11-19-2016 Anion gap 11 mmol/L Normal 0-15 [facility] BUN (urea nitrogen) 12 mg/dL Normal 8-25 [facility] Chloride 105 mmol/L Normal 98-110 [facility] CO2 24 mmol/L Normal 23-32 [facility] Creatinine 0.70 mg/dL Normal 0.70-1.40 [facility] eGFR (non-black) mL/min/{1.73_m2} Normal Cl [facility] Comment on above: Result Comment: eGFR [...] Calcium, WB 1.14 mmol/L Normal 1.08-1.30 [facility] Comment on above: Result Comment: Lore se note: This value represents ionized calcium not total calcium. Potassium molar conc 4.0 mmol/L Normal 3.5-5.0 [facility] Sodium 140 mmol/L Normal 132-148 [facility] Ferritinon 10-29-2016 Ferritin 19.8 ng/mL Normal 14.7-205.1 [facility] Comment on above: Performed By: #### I CHERYL FERR ####[address] [phone] Iron and TIBCon 10-29-2016 Iron 21 ug/dL Low 41-186 [facility] Comment on above: Performed By: #### I CHERYL FERR ####[address] [phone] TIBC 331 ug/dL Normal 232-386 [facility] Comment on above: Performed By: #### I CHERYL FERR ####[address] [phone] Transferrin Saturatn 6 % Low 15-57 [facility] Comment on above: Performed By: #### I CHERYL FERR ####[address] [phone] Remote CBCDIF (for [facility] use o nly)on 10-29-2016 Abs Baso 0.02 k/uL Normal 0.00-0.10 [facility] Abs [place] 0.42 k/uL Normal 0.00-0.86 [facility] Abs Neut 3.06 k/uL Normal 1.45-7.50 [facility] Basophils/100 WBC Auto (Bld) 0.3 % Normal [facility] Eosinophils 0.11 10*3/uL Normal 0.00-0.45 [facility] Eosinophils/100 leukocytes 1.8 % Normal [facility] Erythrocyte distribution width Auto Ratio (RBC) 12.9 % Normal 11.5-15.0 [facility] Erythrocytes (RBC) 3.90 10*6/uL Normal 3.90-5.20 [facility] Hematocrit (HCT) 34.0 % Low 36.0-46.0 [facility] Hemoglobin mass conc (Bld) 10.8 g/dL Low 11.5-15.5 [facility] Lymphocytes 2.37 10*3/uL Normal 1.00-4.00 [facility] Lymphocytes/100 leukocytes 39.6 % Normal [facility] MCH 27.7 pG Normal 26.0-34.0 [facility] MCHC mass conc (RBC) 31.8 g/dL Normal 30.5-36.0 [facility] MCV 87.2 fL Normal 80.0-100.0 [facility] Monocytes/100 leukocytes 7.0 % Normal [facility] Neutrophils/100 WBC Auto (Bld) 51.3 % Normal [facility] Platelet mean volume (PMV) 10.8 fL Normal 9.0-12.7 [facility] Platelets 268 10*3/uL Normal 150-400 [facility] WBC (Leukocytes) 5.98 10*3/uL Normal 3.70-11.00 [facility] Remote iSTAT BMP (for [facility] us e only)on 10-29-2016 Anion gap 11 mmol/L Normal 0-15 [facility] BUN (urea nitrogen) 9 mg/dL Normal 8-25 [facility] Chloride 104 mmol/L Normal 98-110 [facility] CO2 26 mmol/L Normal 23-32 [facility] Creatinine 0.70 mg/dL Normal 0.70-1.40 [facility] eGFR (non-black) mL/min/{1.73_m2} Normal Cl [facility] Comment on above: Result Comment: eGFR [...] Calcium, WB 1.16 mmol/L Normal 1.08-1.30 [facility] Comment on above: Result Comment: Plea se note: This value represents ionized calcium not total calcium. Potassium molar conc 3.8 mmol/L Normal 3.5-5.0 [facility] Sodium 141 mmol/L Normal 132-148 [facility] Ferritinon 10-01-2016 Ferritin 9.1 ng/mL Low 14.7-205.1 [facility] Comment on above: Performed By: #### I CHERYL FERR ####[facility] [address] [phone] Iron and TIBCon 10-01-2016 Iron 34 ug/dL Low 41-186 [facility] Comment on above: Performed By: #### I CHERYL, FERR ####[facility] [address] [phone] TIBC 316 ug/dL Normal 232-386 [facility] Comment on above: Performed By: #### I CHERYL, FERR ####[facility] [address] [phone] Transferrin Saturatn 11 % Low 15-57 [facility] Comment on above: Performed By: #### I CHERYL, FERR ####[facility] M[address] AveCGuttenberg, [place] [phone] Remote CBCDIF (for [facility] use o nly)on 10-01-2016 Abs Baso 0.02 k/uL Normal 0.00-0.10 [facility] Abs [place] 0.53 k/uL Normal 0.00-0.86 [facility] Abs Neut 2.48 k/uL Normal 1.45-7.50 [facility] Basophils/100 WBC Auto (Bld) 0.4 % Normal [facility] Eosinophils 0.09 10*3/uL Normal 0.00-0.45 [facility] Eosinophils/100 leukocytes 1.6 % Normal [facility] Erythrocyte distribution width Auto Ratio (RBC) 13.7 % Normal 11.5-15.0 [facility] Erythrocytes (RBC) 3.85 10*6/uL Low 3.90-5.20 [facility] Hematocrit (HCT) 33.5 % Low 36.0-46.0 [facility] Hemoglobin mass conc (Bld) 10.7 g/dL Low 11.5-15.5 [facility] Lymphocytes 2.36 10*3/uL Normal 1.00-4.00 [facility] Lymphocytes/100 leukocytes 43.1 % Normal [facility] MCH 27.8 pG Normal 26.0-34.0 [facility] MCHC mass conc (RBC) 31.9 g/dL Normal 30.5-36.0 [facility] MCV 87.0 fL Normal 80.0-100.0 [facility] Monocytes/100 leukocytes 9.7 % Normal [facility] Neutrophils/100 WBC Auto (Bld) 45.2 % Normal [facility] Platelet mean volume (PMV) 10.8 fL Normal 9.0-12.7 [facility] Platelets 282 10*3/uL Normal 150-400 [facility] WBC (Leukocytes) 5.48 10*3/uL Normal 3.70-11.00 [facility] Remote iSTAT BMP (for [facility] us e only)on 10-01-2016 Anion gap 13 mmol/L Normal 0-15 [facility] BUN (urea nitrogen) 14 mg/dL Normal 8-25 [facility] Chloride 102 mmol/L Normal 98-110 [facility] CO2 24 mmol/L Normal 23-32 [facility] Creatinine 0.70 mg/dL Normal 0.70-1.40 [facility] eGFR (non-black) mL/min/{1.73_m2} Normal Cl [facility] Comment on above: Result Comment: eGFR [...] Calcium, WB 1.14 mmol/L Normal 1.08-1.30 [facility] Comment on above: Result Comment: Plea se note: This value represents ionized calcium not total calcium. Potassium molar conc 3.7 mmol/L Normal 3.5-5.0 [facility] Sodium 139 mmol/L Normal 132-148 [facility] Remote CBCDIF (for [facility] use only)on 08-29-2016 Abs Baso 0.02 k/uL Normal 0.00-0.10 [facility] Abs [place] 0.52 k/uL Normal 0.00-0.86 [facility] Abs Neut 3.37 k/uL Normal 1.45-7.50 [facility] Basophils/100 WBC Auto (Bld) 0.3 % Normal [facility] Eosinophils 0.10 10*3/uL Normal 0.00-0.45 [facility] Eosinophils/100 leukocytes 1.7 % Normal [facility] Erythrocyte distribution width Auto Ratio (RBC) 18.7 % High 11.5-15.0 [facility] Erythrocytes (RBC) 3.97 10*6/uL Normal 3.90-5.20 [facility] Hematocrit (HCT) 33.0 % Low 36.0-46.0 [facility] Hemoglobin mass conc (Bld) 10.5 g/dL Low 11.5-15.5 [facility] Lymphocytes 1.92 10*3/uL Normal 1.00-4.00 [facility] Lymphocytes/100 leukocytes 32.4 % Normal [facility] MCH 26.4 pG Normal 26.0-34.0 [facility] MCHC mass conc (RBC) 31.8 g/dL Normal 30.5-36.0 [facility] MCV 83.1 fL Normal 80.0-100.0 [facility] Monocytes/100 leukocytes 8.8 % Normal [facility] Neutrophils/100 WBC Auto (Bld) 56.8 % Normal [facility] Platelet mean volume (PMV) 10.0 fL Normal 9.0-12.7 [facility] Platelets 263 10*3/uL Normal 150-400 [facility] WBC (Leukocytes) 5.93 10*3/uL Normal 3.70-11.00 [facility] Remote iSTAT BMP (for [facility] us e only)on 08-29-2016 Anion gap 12 mmol/L Normal 0-15 [facility] BUN (urea nitrogen) 12 mg/dL Normal 8-25 [facility] Chloride 104 mmol/L Normal 98-110 [facility] CO2 24 mmol/L Normal 23-32 [facility] Creatinine 0.80 mg/dL Normal 0.70-1.40 [facility] eGFR (non-black) mL/min/{1.73_m2} Normal Cl [facility] Comment on above: Result Comment: eGFR [...] Calcium, WB 1.14 mmol/L Normal 1.08-1.30 [facility] Comment on above: Result Comment: Plea se note: This value represents ionized calcium not total calcium. Potassium molar conc 3.7 mmol/L Normal 3.5-5.0 [facility] Sodium 140 mmol/L Normal 132-148 [facility] Vital Signs Date Time Vital Sign Value Performing Clinician Facility 10-18-2024 14:36-0400 Body mass index (BMI) [Ratio] 28.04 kg/m2 Kimi Simmons [employer] Work Phone: [facility] 10-18-2024 14:36-0400 Body weight 76.43 kg Kimi Simmons [employer] Work Phone: [facility] 10-18-2024 14:36-0400 Diastolic blood pressure 86 mm[Hg] Kimi Simmons [employer] Work Phone: [facility] 10-18-2024 14:36-0400 Systolic blood pressure 134 mm[Hg] Kimi Simmons [employer] Work Phone: [facility] 09-22-2024 14:30-0400 Body temperature 98.29 [degF] [facility] 3 [facility] 09-22-2024 14:30-0400 Diastolic blood pressure 77 mm[Hg] [facility] 3 [facility] 09-22-2024 14:30-0400 Heart rate 77 /min [address] 09-22-2024 14:30-0400 Respiratory rate 18 /min [address] 09-22-2024 14:30-0400 Systolic blood pressure 121 mm[Hg] [facility] 3 [facility] 09-22-2024 12:55-0400 Body mass index (BMI) [Ratio] 26.86 kg/m2 [facility] 3 [facility] 09-22-2024 12:55-0400 Body weight 73.21 kg [facility] 3 [facility] 08-25-2024 12:36-0400 Diastolic blood pressure 56 mm[Hg] Pfo 2 [facility] 08-25-2024 12:36-0400 Heart rate 96 /min Pfo 2 [facility] 08-25-2024 12:36-0400 Respiratory rate 16 /min Pfo 2 [facility] 08-25-2024 12:36-0400 Systolic blood pressure 109 mm[Hg] Pfo 2 [facility] 08-25-2024 09:06-0400 Body height 165.1 cm Pfo 2 [facility] 08-25-2024 09:06-0400 Body mass index (BMI) [Ratio] 27.16 kg/m2 Pfo 2 [facility] 08-25-2024 09:06-0400 Body temperature 98.1 [degF] Pfo 2 [facility] 08-25-2024 09:06-0400 Body weight 74.03 kg Pfo 2 [facility] 08-25-2024 09:06-0400 SaO2% (BldA) [Mass fraction] 100 % Pfo 2 [facility] 08-09-2024 11:40-0400 Body temperature 97.9 [degF] [facility] 5 [facility] 08-09-2024 11:40-0400 Diastolic blood pressure 71 mm[Hg] [address] 08-09-2024 11:40-0400 Heart rate 86 /min [address] 08-09-2024 11:40-0400 Respiratory rate 18 /min [address] 08-09-2024 11:40-0400 Systolic blood pressure 103 mm[Hg] [address] 08-09-2024 10:10-0400 Body mass index (BMI) [Ratio] 26.46 kg/m2 [address] 08-09-2024 10:10-0400 Body weight 72.[address] 08-02-2024 14:12-0400 Body height 165.1 cm Hilary HALEY Work Phone: [facility] 08-02-2024 14:12-0400 Body mass index (BMI) [Ratio] 26.43 kg/m2 Hilary HALEY Work Phone: [facility] 08-02-2024 14:12-0400 Body temperature 98.2 [degF] Hilary Aviles APRN-URGENT CARE PHYSICIAN ASSISTANT Work Phone: [facility] 08-02-2024 14:12-0400 Body weight 72.03 kg Hilary Aviles PROJECT MANAGER/TEAM COACH-URGENT CARE PHYSICIAN ASSISTANT Work Phone: [facility] 08-02-2024 14:12-0400 Diastolic blood pressure 76 mm[Hg] Hilary Aviles APRN-URGENT CARE PHYSICIAN ASSISTANT Work Phone: [facility] 08-02-2024 14:12-0400 Heart rate 92 /min Hilary Aviles PROJECT MANAGER/TEAM COACH-URGENT CARE PHYSICIAN ASSISTANT Work Phone: [facility] 08-02-2024 14:12-0400 SaO2% (BldA) [Mass fraction] 98 % Hilary Aviles APRN-URGENT CARE PHYSICIAN ASSISTANT Work Phone: [facility] 08-02-2024 14:12-0400 Systolic blood pressure 124 mm[Hg] Hilary Aviles APRN-URGENT CARE PHYSICIAN ASSISTANT Work Phone: [facility] 07-15-2024 11:01-0400 Body mass index (BMI) [Ratio] 27.04 kg/m2 Yaquelin BELCHER Work Phone: [facility] 07-15-2024 11:01-0400 Body weight 73.71 kg Yaquelin BELCHER Work Phone: [facility] 07-15-2024 11:01-0400 Diastolic blood pressure 90 mm[Hg] Yaquelin BELCHER Work Phone: [facility] 07-15-2024 11:01-0400 Systolic blood pressure 130 mm[Hg] Yaquelin Horne PA Work Phone: [facility] 07-08-2024 14:13-0400 Body height 165.1 cm Cee Turner PROJECT MANAGER/TEAM COACH-URGENT CARE PHYSICIAN ASSISTANT Work Phone: [facility] 07-08-2024 14:13-0400 Body mass index (BMI) [Ratio] 26.79 kg/m2 Cee Turner PROJECT MANAGER/TEAM COACH-URGENT CARE PHYSICIAN ASSISTANT Work Phone: [facility] 07-08-2024 14:13-0400 Body weight 73.03 kg Cee Tanika PROJECT MANAGER/TEAM COACH-URGENT CARE PHYSICIAN ASSISTANT Work Phone: [facility] 07-08-2024 14:13-0400 Diastolic blood pressure 66 mm[Hg] Cee Turner PROJECT MANAGER/TEAM COACH-URGENT CARE PHYSICIAN ASSISTANT Work Phone: [facility] 07-08-2024 14:13-0400 Systolic blood pressure 104 mm[Hg] Cee Tanika PROJECT MANAGER/TEAM COACH-URGENT CARE PHYSICIAN ASSISTANT Work Phone: [facility] 07-06-2024 11:50-0400 Body height 165.1 cm Padmini Wilson MD Work Phone: [facility] 07-06-2024 11:50-0400 Body mass index (BMI) [Ratio] 27.16 kg/m2 Padmini Wilson MD Work Phone: [facility] 07-06-2024 11:50-0400 Body weight 74.03 kg Padmini Wilson MD Work Phone: [facility] 07-06-2024 11:50-0400 Diastolic blood pressure 81 mm[Hg] Padmini Wilson MD Work Phone: [facility] 07-06-2024 11:50-0400 Heart rate 108 /min Padmini Wilson MD Work Phone: [facility] 07-06-2024 11:50-0400 Respiratory rate 17 /min Padmini Wilson MD Work Phone: [facility] 07-06-2024 11:50-0400 Systolic blood pressure 94 mm[Hg] Padmini Wilson MD Work Phone: [facility] 06-28-2024 13:45-0400 Body temperature 98.29 [degF] Wl 2 [facility] 06-28-2024 13:45-0400 Diastolic blood pressure 79 mm[Hg] Wlc 2 [facility] 06-28-2024 13:45-0400 Heart rate 77 /min [facility] 2 [facility] 06-28-2024 13:45-0400 Respiratory rate 18 /min [facility] 2 [facility] 06-28-2024 13:45-0400 Systolic blood pressure 118 mm[Hg] [facility] 2 [facility] 06-28-2024 12:15-0400 Body mass index (BMI) [Ratio] 26.96 kg/m2 [facility] 2 [facility] 06-28-2024 12:15-0400 Body weight 73.5 kg [facility] 2 [facility] 06-28-2024 11:09-0400 Body mass index (BMI) [Ratio] 26.96 kg/m2 Sharda Montiel MD Work Phone: [facility] 06-28-2024 11:09-0400 Body weight 73.48 kg Sharda Montiel MD Work Phone: [facility] 06-28-2024 11:09-0400 Diastolic blood pressure 76 mm[Hg] Sharda Montiel MD Work Phone: [facility] 06-28-2024 11:09-0400 Systolic blood pressure 124 mm[Hg] Sharda Montiel MD Work Phone: [facility] 06-21-2024 15:35-0400 Body height 165.1 cm Norma Kinney MD Work Phone: [facility] 06-21-2024 15:35-0400 Body mass index (BMI) [Ratio] 26.88 kg/m2 Norma Kinney MD Work Phone: [facility] 06-21-2024 15:35-0400 Body temperature 98.8 [degF] Norma Kinney MD Work Phone: [facility] 06-21-2024 15:35-0400 Body weight 73.26 kg Norma Kinney MD Work Phone: [facility] 06-21-2024 15:35-0400 Diastolic blood pressure 82 mm[Hg] Norma Kinney MD Work Phone: [facility] 06-21-2024 15:35-0400 Systolic blood pressure 116 mm[Hg] Norma Kinney MD Work Phone: [facility] 06-14-2024 13:08-0400 Body height 165.1 cm Padmini Wilson MD Work Phone: [facility] 06-14-2024 13:08-0400 Body mass index (BMI) [Ratio] 27.12 kg/m2 Padmini Wilson MD Work Phone: [facility] 06-14-2024 13:08-0400 Body weight 73.94 kg Padmini Wilson MD Work Phone: [facility] 06-14-2024 13:08-0400 Diastolic blood pressure 69 mm[Hg] Padmini Wilson MD Work Phone: [facility] 06-14-2024 13:08-0400 Heart rate 114 /min Padmini Wilson MD Work Phone: [facility] 06-14-2024 13:08-0400 Systolic blood pressure 111 mm[Hg] Padmini Wilson MD Work Phone: [facility] 06-14-2024 10:14-0400 Body height 165.1 cm Norma Kinney MD Work Phone: [facility] 06-14-2024 10:14-0400 Body mass index (BMI) [Ratio] 27.06 kg/m2 Norma Kinney MD Work Phone: [facility] 06-14-2024 10:14-0400 Body temperature 98.29 [degF] Norma Kinney MD Work Phone: [facility] 06-14-2024 10:14-0400 Body weight 73.75 kg Norma Kinney MD Work Phone: [facility] 06-14-2024 10:14-0400 Diastolic blood pressure 64 mm[Hg] Norma Kinney MD Work Phone: [facility] 06-14-2024 10:14-0400 Heart rate 101 /min Norma Kinney MD Work Phone: [facility] 06-14-2024 10:14-0400 Systolic blood pressure 96 mm[Hg] Norma Kinney MD Work Phone: [facility] 06-04-2024 05:10-0400 SaO2% (BldA) [Mass fraction] 99 % [facility] Comment on above: Performed By: #### ABG ####[facility] ([id number])2141 [place] [address] 06-03-2024 04:22-0400 SaO2% (BldA) [Mass fraction] 98 % [facility] Comment on above: Performed By: #### ABG ####[facility] ([id number])2141 [place] [address] 06-02-2024 13:15-0400 SaO2% (BldA) [Mass fraction] 95 % [facility] Comment on above: Performed By: #### ABG ####[facility] ([id number])2141 [place] [address] 05-31-2024 16:14-0400 SaO2% (BldA) [Mass fraction] 100 % [facility] Comment on above: Performed By: #### ABG ####[facility] ([id number])2141 [place] [address] 05-31-2024 12:54-0400 SaO2% (BldA) [Mass fraction] 10 % [facility] Comment on above: Performed By: #### ABG ####[facility] ([id number] [place] [address] 05-26-2024 14:28-0400 Body mass index (BMI) [Ratio] 31.62 kg/m2 Parish Courtney DO Work Phone: [facility] 05-26-2024 14:28-0400 Body weight 86.18 kg Parish Courtney DO Work Phone: [facility] 05-26-2024 14:28-0400 Diastolic blood pressure 82 mm[Hg] Parish Courtney DO Work Phone: [facility] 05-26-2024 14:28-0400 Systolic blood pressure 130 mm[Hg] Parish Courtney DO Work Phone: [facility] 05-24-2024 12:55-0400 Body temperature 99.3 [degF] Wl 3 [facility] 05-24-2024 12:55-0400 Diastolic blood pressure 90 mm[Hg] [address] 05-24-2024 12:55-0400 Heart rate 105 /min [address] 05-24-2024 12:55-0400 Respiratory rate 18 /min [address] 05-24-2024 12:55-0400 Systolic blood pressure 128 mm[Hg] [address] 05-24-2024 10:35-0400 Body mass index (BMI) [Ratio] 31.65 kg/m2 [address] 05-24-2024 10:35-0400 Body weight 86.27 kg [facility] 3 [facility] 05-12-2024 14:49-0400 Body mass index (BMI) [Ratio] 31.45 kg/m2 Yaquelin BELCHER Work Phone: [facility] 05-12-2024 14:49-0400 Body weight 85.73 kg Yaquelin BELCHER Work Phone: [facility] 05-12-2024 14:49-0400 Diastolic blood pressure 78 mm[Hg] Yaquelin BELCHER Work Phone: [facility] 05-12-2024 14:49-0400 Systolic blood pressure 130 mm[Hg] Yaquelin BELCHER Work Phone: [facility] 05-06-2024 09:41-0400 Body height 165.1 cm Raulito Jimenez DO Work Phone: [facility] 05-06-2024 09:41-0400 Body mass index (BMI) [Ratio] 31.62 kg/m2 Raulito Jimenez DO Work Phone: [facility] 05-06-2024 09:41-0400 Body temperature 98.2 [degF] Raulito Jimenez DO Work Phone: [facility] 05-06-2024 09:41-0400 Body weight 86.18 kg Raulito Jimenez DO Work Phone: [facility] 05-06-2024 09:41-0400 Diastolic blood pressure 78 mm[Hg] Raulito Jimenez DO Work Phone: [facility] 05-06-2024 09:41-0400 Heart rate 110 /min Raulito Jimenez DO Work Phone: [facility] 05-06-2024 09:41-0400 SaO2% (BldA) [Mass fraction] 98 % Raulito Jimenez DO Work Phone: [facility] 05-06-2024 09:41-0400 Systolic blood pressure 138 mm[Hg] Raulito Jimenez DO Work Phone: [facility] 04-26-2024 10:26-0400 Body mass index (BMI) [Ratio] 30.65 kg/m2 Parish Courtney DO Work Phone: [facility] 04-26-2024 10:26-0400 Body weight 83.55 kg Parish Courtney DO Work Phone: [facility] 04-26-2024 10:26-0400 Diastolic blood pressure 76 mm[Hg] Parish Courtney DO Work Phone: [facility] 04-26-2024 10:26-0400 Systolic blood pressure 122 mm[Hg] Parish Courtney DO Work Phone: [facility] 04-19-2024 13:13-0400 Body temperature 99.19 [degF] Wl 1 [facility] 04-19-2024 13:13-0400 Diastolic blood pressure 79 mm[Hg] Wlc 1 [facility] 04-19-2024 13:13-0400 Heart rate 96 /min Wl 1 [facility] 04-19-2024 13:13-0400 Respiratory rate 20 /min Wl 1 [facility] 04-19-2024 13:13-0400 Systolic blood pressure 116 mm[Hg] Wl 1 [facility] 04-19-2024 10:41-0400 Body mass index (BMI) [Ratio] 30.63 kg/m2 [facility] 1 [facility] 04-19-2024 10:41-0400 Body weight 83.5 kg Wlc 1 [facility] 04-19-2024 09:53-0400 Body height 165.1 cm Sharda Montiel MD Work Phone: [facility] 04-19-2024 09:53-0400 Body mass index (BMI) [Ratio] 30.62 kg/m2 Sharda Montiel MD Work Phone: [facility] 04-19-2024 09:53-0400 Body weight 83.46 kg Sharda Montiel MD Work Phone: [facility] 04-19-2024 09:53-0400 Diastolic blood pressure 86 mm[Hg] Sharda Montiel MD Work Phone: [facility] 04-19-2024 09:53-0400 Systolic blood pressure 140 mm[Hg] Sharda Montiel MD Work Phone: [facility] 04-14-2024 14:33-0500 Body mass index (BMI) [Ratio] 30.42 kg/m2 Parish Courtney DO Work Phone: [facility] 04-14-2024 14:33-0500 Body weight 82.92 kg Parish Courtney DO Work Phone: [facility] 04-14-2024 14:33-0500 Diastolic blood pressure 72 mm[Hg] Parish Courtney DO Work Phone: [facility] 04-14-2024 14:33-0500 Systolic blood pressure 122 mm[Hg] Parish Courtney DO Work Phone: [facility] 03-17-2024 10:51-0500 Body mass index (BMI) [Ratio] 29.31 kg/m2 Yaquelin Horne PA Work Phone: [facility] 03-17-2024 10:51-0500 Body weight 79.89 kg Yaquelin Horne PA Work Phone: [facility] 03-17-2024 10:51-0500 Diastolic blood pressure 70 mm[Hg] Yaquelin Christieey PA Work Phone: [facility] 03-17-2024 10:51-0500 Systolic blood pressure 116 mm[Hg] Yaquelin Christieey PA Work Phone: [facility] 03-08-2024 12:30-0500 Body temperature 99.81 [degF] Wlc 1 [facility] 03-08-2024 12:30-0500 Diastolic blood pressure 69 mm[Hg] Wlc 1 [facility] 03-08-2024 12:30-0500 Heart rate 103 /min Wlc 1 [facility] 03-08-2024 12:30-0500 Respiratory rate 18 /min Wlc 1 [facility] 03-08-2024 12:30-0500 Systolic blood pressure 109 mm[Hg] Wlc 1 [facility] 03-08-2024 10:10-0500 Body mass index (BMI) [Ratio] 29.62 kg/m2 Wl 1 [facility] 03-08-2024 10:10-0500 Body weight 80.74 kg Wlc 1 [facility] 02-18-2024 11:43-0500 Body mass index (BMI) [Ratio] 29.29 kg/m2 Parish Courtney DO Work Phone: [facility] 02-18-2024 11:43-0500 Body weight 79.83 kg Parish Courtney DO Work Phone: [facility] 02-18-2024 11:43-0500 Diastolic blood pressure 72 mm[Hg] Parish Courtney DO Work Phone: [facility] 02-18-2024 11:43-0500 Systolic blood pressure 122 mm[Hg] Parish Courtney DO Work Phone: [facility] 12-12-2023 11:50-0400 Body temperature 98.91 [degF] Wl 2 [facility] 12-12-2023 11:50-0400 Diastolic blood pressure 66 mm[Hg] [facility] 2 [facility] 12-12-2023 11:50-0400 Heart rate 92 /min [facility] 2 [facility] 12-12-2023 11:50-0400 Respiratory rate 18 /min Wl 2 [facility] 12-12-2023 11:50-0400 Systolic blood pressure 100 mm[Hg] [facility] 2 [facility] 12-12-2023 10:31-0400 Body mass index (BMI) [Ratio] 27.96 kg/m2 [facility] 2 [facility] 12-12-2023 10:31-0400 Body weight 76.2 kg [facility] 2 [facility] 12-01-2023 14:25-0400 Body height 165.1 cm Dominique Josh HERNANDEZN-URGENT CARE PHYSICIAN ASSISTANT Work Phone: [facility] 12-01-2023 14:25-0400 Body mass index (BMI) [Ratio] 27.89 kg/m2 Dominique Josh PROJECT MANAGER/TEAM COACH-URGENT CARE PHYSICIAN ASSISTANT Work Phone: [facility] 12-01-2023 14:25-0400 Body temperature 98.8 [degF] Dominique Josh PROJECT MANAGER/TEAM COACH-URGENT CARE PHYSICIAN ASSISTANT Work Phone: [facility] 12-01-2023 14:25-0400 Body weight 76.02 kg Dominique Josh PROJECT MANAGER/TEAM COACH-URGENT CARE PHYSICIAN ASSISTANT Work Phone: [facility] 12-01-2023 14:25-0400 Diastolic blood pressure 76 mm[Hg] Dominique Josh PROJECT MANAGER/TEAM COACH-URGENT CARE PHYSICIAN ASSISTANT Work Phone: [facility] 12-01-2023 14:25-0400 Heart rate 71 /min Dominique Josh PROJECT MANAGER/TEAM COACH-URGENT CARE PHYSICIAN ASSISTANT Work Phone: [facility] 12-01-2023 14:25-0400 Respiratory rate 16 /min Dominique Johs PROJECT MANAGER/TEAM COACH-URGENT CARE PHYSICIAN ASSISTANT Work Phone: [facility] 12-01-2023 14:25-0400 SaO2% (BldA) [Mass fraction] 99 % Dominique Josh PROJECT MANAGER/TEAM COACH-URGENT CARE PHYSICIAN ASSISTANT Work Phone: [facility] 12-01-2023 14:25-0400 Systolic blood pressure 111 mm[Hg] Dominique Josh PROJECT MANAGER/TEAM COACH-URGENT CARE PHYSICIAN ASSISTANT Work Phone: [facility] 10-31-2023 11:13-0400 Body temperature 98.6 [degF] [facility] 2 [facility] 10-31-2023 11:13-0400 Diastolic blood pressure 72 mm[Hg] [facility] 2 [facility] 10-31-2023 11:13-0400 Heart rate 85 /min [facility] 2 [facility] 10-31-2023 11:13-0400 Respiratory rate 18 /min [facility] 2 [facility] 10-31-2023 11:13-0400 Systolic blood pressure 112 mm[Hg] [facility] 2 [facility] 10-31-2023 09:51-0400 Body mass index (BMI) [Ratio] 27.81 kg/m2 [facility] 2 [facility] 10-31-2023 09:51-0400 Body weight 75.8 kg [facility] 2 [facility] 10-31-2023 08:50-0400 Body height 165.1 cm Sharda Montiel MD Work Phone: [facility] 10-31-2023 08:50-0400 Body mass index (BMI) [Ratio] 27.79 kg/m2 Sharda Montiel MD Work Phone: [facility] 10-31-2023 08:50-0400 Body weight 75.75 kg Sharda Montiel MD Work Phone: [facility] 10-31-2023 08:50-0400 Diastolic blood pressure 60 mm[Hg] Sharda Montiel MD Work Phone: [facility] 10-31-2023 08:50-0400 Systolic blood pressure 100 mm[Hg] Sharda Montiel MD Work Phone: [facility] 09-17-2023 09:46-0400 Body mass index (BMI) [Ratio] 27.06 kg/m2 Hilary Aviles PROJECT MANAGER/TEAM COACH-URGENT CARE PHYSICIAN ASSISTANT Work Phone: [facility] 09-17-2023 09:46-0400 Body temperature 98.2 [degF] Hilary Aviles PROJECT MANAGER/TEAM COACH-URGENT CARE PHYSICIAN ASSISTANT Work Phone: [facility] 09-17-2023 09:46-0400 Body weight 73.75 kg Hilary Aviles PROJECT MANAGER/TEAM COACH-URGENT CARE PHYSICIAN ASSISTANT Work Phone: [facility] 09-17-2023 09:46-0400 Diastolic blood pressure 60 mm[Hg] Hilary Aviles PROJECT MANAGER/TEAM COACH-URGENT CARE PHYSICIAN ASSISTANT Work Phone: [facility] 09-17-2023 09:46-0400 Heart rate 75 /min Hilary Aviles PROJECT MANAGER/TEAM COACH-URGENT CARE PHYSICIAN ASSISTANT Work Phone: [facility] 09-17-2023 09:46-0400 SaO2% (BldA) [Mass fraction] 97 % Hilary Aviles PROJECT MANAGER/TEAM COACH-URGENT CARE PHYSICIAN ASSISTANT Work Phone: [facility] 09-17-2023 09:46-0400 Systolic blood pressure 98 mm[Hg] Hilary Aviles PROJECT MANAGER/TEAM COACH-URGENT CARE PHYSICIAN ASSISTANT Work Phone: [facility] 09-15-2023 12:10-0400 Body temperature 98.71 [degF] [facility] 3 [facility] 09-15-2023 12:10-0400 Diastolic blood pressure 70 mm[Hg] [facility] 3 [facility] 09-15-2023 12:10-0400 Heart rate 75 /min [facility] 3 [facility] 09-15-2023 12:10-0400 Respiratory rate 20 /min [facility] 3 [facility] 09-15-2023 12:10-0400 Systolic blood pressure 117 mm[Hg] [facility] 3 [facility] 09-15-2023 10:43-0400 Body mass index (BMI) [Ratio] 26.89 kg/m2 [facility] 3 [facility] 09-15-2023 10:43-0400 Body weight 73.3 kg [facility] 3 [facility] 08-20-2023 14:15-0400 Body height 165.1 cm Hilary Aviles PROJECT MANAGER/TEAM COACH-URGENT CARE PHYSICIAN ASSISTANT Work Phone: [facility] 08-20-2023 14:15-0400 Body mass index (BMI) [Ratio] 26.36 kg/m2 Hilary Aviles PROJECT MANAGER/TEAM COACH-URGENT CARE PHYSICIAN ASSISTANT Work Phone: [facility] 08-20-2023 14:15-0400 Body temperature 98.6 [degF] Hilary Aviles PROJECT MANAGER/TEAM COACH-URGENT CARE PHYSICIAN ASSISTANT Work Phone: [facility] 08-20-2023 14:15-0400 Body weight 71.85 kg iHlary Aviles PROJECT MANAGER/TEAM COACH-URGENT CARE PHYSICIAN ASSISTANT Work Phone: [facility] 08-20-2023 14:15-0400 Diastolic blood pressure 72 mm[Hg] Hilary Aviles PROJECT MANAGER/TEAM COACH-URGENT CARE PHYSICIAN ASSISTANT Work Phone: [facility] 08-20-2023 14:15-0400 Heart rate 87 /min Hilary Aviles PROJECT MANAGER/TEAM COACH-URGENT CARE PHYSICIAN ASSISTANT Work Phone: [facility] 08-20-2023 14:15-0400 SaO2% (BldA) [Mass fraction] 97 % Hilary Aviles PROJECT MANAGER/TEAM COACH-URGENT CARE PHYSICIAN ASSISTANT Work Phone: [facility] 08-20-2023 14:15-0400 Systolic blood pressure 116 mm[Hg] Hilary Fontaineler PROJECT MANAGER/TEAM COACH-URGENT CARE PHYSICIAN ASSISTANT Work Phone: [facility] 08-04-2023 14:48-0400 Body temperature 98.2 [degF] [facility] 2 [facility] 08-04-2023 14:48-0400 Diastolic blood pressure 77 mm[Hg] [facility] 2 [facility] 08-04-2023 14:48-0400 Heart rate 76 /min [facility] 2 [facility] 08-04-2023 14:48-0400 Respiratory rate 20 /min [facility] 2 [facility] 08-04-2023 14:48-0400 Systolic blood pressure 118 mm[Hg] [facility] 2 [facility] 08-04-2023 13:22-0400 Body mass index (BMI) [Ratio] 27.19 kg/m2 [facility] 2 [facility] 08-04-2023 13:22-0400 Body weight 74.12 kg [facility] 2 [facility] 04-21-2023 13:05-0400 Body temperature 97.81 [degF] [facility] 4 [facility] 04-21-2023 13:05-0400 Diastolic blood pressure 75 mm[Hg] [facility] 4 [facility] 04-21-2023 13:05-0400 Heart rate 78 /min [facility] 4 [facility] 04-21-2023 13:05-0400 Respiratory rate 20 /min [facility] 4 [facility] 04-21-2023 13:05-0400 Systolic blood pressure 117 mm[Hg] [facility] 4 [facility] 04-21-2023 10:29-0400 Body mass index (BMI) [Ratio] 27.89 kg/m2 [facility] 4 [facility] 04-21-2023 10:29-0400 Body weight 76.02 kg [facility] 4 [facility] 02-20-2023 11:48-0500 Body height 165.1 cm Lyndsey Anders MD Work Phone: [facility] 02-20-2023 11:48-0500 Body mass index (BMI) [Ratio] 27.46 kg/m2 Lyndsey Anders MD Work Phone: [facility] 02-20-2023 11:48-0500 Body temperature 98.91 [degF] Lyndsey Anders MD Work Phone: [facility] 02-20-2023 11:48-0500 Body weight 74.84 kg Lyndsey Anders MD Work Phone: [facility] 02-20-2023 11:48-0500 Diastolic blood pressure 72 mm[Hg] Lyndsey Anders MD Work Phone: [facility] 02-20-2023 11:48-0500 Heart rate 104 /min Lyndsey Anders MD Work Phone: [facility] 02-20-2023 11:48-0500 SaO2% (BldA) [Mass fraction] 99 % Lyndsey Anders MD Work Phone: [facility] 02-20-2023 11:48-0500 Systolic blood pressure 114 mm[Hg] Lyndsey Anders MD Work Phone: [facility] 02-17-2023 14:26-0500 Body temperature 99.1 [degF] [facility] 3 [facility] 02-17-2023 14:26-0500 Diastolic blood pressure 77 mm[Hg] [facility] 3 [facility] 02-17-2023 14:26-0500 Heart rate 100 /min [facility] 3 [facility] 02-17-2023 14:26-0500 SaO2% (BldA) [Mass fraction] 97 % [facility] 3 [facility] 02-17-2023 14:26-0500 Systolic blood pressure 117 mm[Hg] [facility] 3 [facility] 02-17-2023 11:45-0500 Body mass index (BMI) [Ratio] 27.69 kg/m2 Wlc 3 [facility] 02-17-2023 11:45-0500 Body weight 75.48 kg Wlc 3 [facility] 02-17-2023 11:45-0500 Respiratory rate 20 /min Wlc 3 [facility] 02-06-2023 12:54-0500 Diastolic blood pressure 69 mm[Hg] Pfo 3 [facility] 02-06-2023 12:54-0500 Heart rate 92 /min Pfo 3 [facility] 02-06-2023 12:54-0500 Respiratory rate 18 /min Pfo 3 [facility] 02-06-2023 12:54-0500 SaO2% (BldA) [Mass fraction] 100 % Pfo 3 [facility] 02-06-2023 12:54-0500 Systolic blood pressure 104 mm[Hg] Pfo 3 [facility] 02-06-2023 11:37-0500 Body height 165.1 cm Pfo 3 [facility] 02-06-2023 11:37-0500 Body mass index (BMI) [Ratio] 27.46 kg/m2 Pfo 3 [facility] 02-06-2023 11:37-0500 Body temperature 98.4 [degF] Pfo 3 [facility] 02-06-2023 11:37-0500 Body weight 74.84 kg Pfo 3 [facility] Encounters Encounter Date Encounter Type Care Provider Facility Start: 10-18-2024 End: 10-18-2024 Patient encounter procedure Kimi Simmons NP Work Phone: [facility] Work Phone: Start: 10-18-2024 End: 10-18-2024 Periodic preventive med est patient 18-39 yrs Kimi Simmons NP Work Phone: [facility] Comment on above: Well woman exam with routine gynecological exam (Primary Dx) Start: 10-18-2024 End: 10-18-2024 Bamboo flowsheet Kimi Simmons NP Work Phone: [facility] Start: 10-18-2024 End: 10-18-2024 Caliboo flowsheet Kimi Iris MOREAU Work Phone: [facility] Start: 09-22-2024 End: 09-22-2024 ambulatory [facility] Chair 3 [facility] Comment on above: Crohn's disease of b oth small and large intestine with intestinal obstruction (CMS-HCC) (Primary Dx) Start: 09-10[facility] Start: 09-08-2024 End: 09-08-2024 [facility] Start: 08-25-2024 End: 08-25-2024 ambulatory [facility] Infusion Chair 2 Ally Lovell [facility] Comment on above: Iron malabsorption ( Primary Dx); Iron deficiency anemia due to chronic blood loss; Iron deficiency anemia, unspecified Start: 08-17-2024 End: 08-17-2024 Telephone encounter Yeison Velasco [facility] [place] [facility] Start: 08-12-2024 End: 08-12-2024 Orders Only Jayjay Clayton PROJECT MANAGER/TEAM COACH-URGENT CARE PHYSICIAN ASSISTANT Work Phone: [facility] Comment on above: Iron deficiency anem ia due to chronic blood loss (Primary Dx); Iron malabsorption; Iron deficiency anemia, unspecified Start: 08-11-2024 End: 08-11-2024 Office outpatient visit 15 minutes Hilary Aviles PROJECT MANAGER/TEAM COACH-URGENT CARE PHYSICIAN ASSISTANT Work Phone: [facility] Comment on above: History of epidural anesthesia (Primary Dx); Acute midline low back pain without sciatica Start: 08-11-2024 End: 08-11-2024 [facility] Start: 08-09-2024 End: 08-09-2024 ambulatory [facility] Infusion Chair 5 [facility] Comment on above: Crohn's disease of b oth small and large intestine with intestinal obstruction (CMS-HCC) (Primary Dx) Start: 08-04-2024 End: 09-03-2024 Orders Only Hilary Aviles PROJECT MANAGER/TEAM COACH-URGENT CARE PHYSICIAN ASSISTANT Work Phone: [facility] Comment on above: Lumbar pain (Primary Dx) Start: 08-03-2024 End: 08-03-2024 ambulatory [facility] Start: 08-03-2024 End: 08-03-2024 Office outpatient new 45 minutes [facility] PROJECT MANAGER/TEAM COACH-URGENT CARE PHYSICIAN ASSISTANT Work Phone: [facility] Comment on above: Iron deficiency anem ia due to chronic blood loss (Primary Dx); Iron deficiency anemia, unspecified iron deficiency anemia type; Iron malabsorption; Iron deficiency anemia, unspecified Start: 08-02-2024 End: 08-02-2024 Emergency department patient visit [facility] Magen [facility] Start: 08-02-2024 End: 08-02-2024 ambulatory [facility] Ambulatory [facility] Start: 08-02-2024 End: 08-02-2024 Office outpatient visit 25 minutes Hilary Aviles PROJECT MANAGER/TEAM COACH-URGENT CARE PHYSICIAN ASSISTANT Work Phone: [facility] Comment on above: Lumbar strain, initi al encounter (Primary Dx); Acute midline low back pain without sciatica; Other acute pulmonary embolism without acute cor pulmonale (CMS-HCC); Iron deficiency anemia, unspecified; Iron malabsorption; Crohn's disease of both small and large intestine with intestinal obstruction (CMS-HCC) Start: 08-02-2024 End: 08-02-2024 Telephone encounter Hilary Aviles PROJECT MANAGER/TEAM COACH-URGENT CARE PHYSICIAN ASSISTANT Work Phone: [facility] Start: 07-15-2024 End: 07-15-2024 ambulatory YAQUELIN HORNE Not Available Start: 07-15-2024 End: 07-15-2024 care visit Yaquelin BELCHER Work Phone: [facility] Comment on above: 6 weeks f ollow-up Start: 07-09-2024 End: 07-09-2024 Orders Only Stoney Davis [facility] Comment on above: Other iron deficienc y anemia (Primary Dx) Start: 07-08-2024 End: 07-08-2024 Office outpatient visit 15 minutes Cee Turner APRN-URGENT CARE PHYSICIAN ASSISTANT Work Phone: [facility] Comment on above: Other acute pulmonar y embolism without acute cor pulmonale (CMS-HCC) (Primary Dx); Acute deep vein thrombosis (DVT) of distal end of right lower extremity (CMS-HCC) Start: 07-08-2024 End: 07-08-2024 ambulatory CEE TURNER [facility] Start: 07-06-2024 End: 07-06-2024 Postop follow up visit related to original px Padmini Wilson MD Work Phone: [facility]-Tra[facility] Comment on above: S/P small bowel rese ction (Primary Dx) Start: 07-06-2024 End: 07-06-2024 ambulatory BALDERRAMA Magen WILSON [facility] Start: 07-03-2024 End: 07-03-2024 Emergency department patient visit SESAR KAY [facility] Start: 06-28-2024 End: 06-28-2024 ambulatory [facility] Infusion Chair 2 [facility] Comment on above: Crohn's disease of b oth small and large intestine with intestinal obstruction (CMS-HCC) (Primary Dx) Start: 06-28-2024 End: 06-28-2024 Office outpatient visit 40 minutes Sharda Montiel MD Work Phone: [facility], A Department of [facility] Comment on above: Crohn's disease of b oth small and large intestine with intestinal obstruction (CMS-HCC) (Primary Dx); Iron malabsorption; Vitamin B 12 deficiency; Iron deficiency anemia, unspecified; History of small bowel obstruction Start: 06-28-2024 End: 06-28-2024 ambulatory HILARY AVILES [facility] Start: 06-21-2024 End: 06-21-2024 Patient encounter status Norma Kinney MD Work Phone: [facility] Start: 06-21-2024 End: 06-21-2024 Postop follow up visit related to original px Norma Kinney MD Work Phone: [facility] Comment on above: Surgical followup (P rimary Dx); BP check; History of severe pre-eclampsia Start: 06-21-2024 End: 06-21-2024 [facility] NORMA KINNEY [facility] Start: 06-16-2024 End: 06-18-2024 Evaluation and management of inpatient SESAR KAY [facility] Start: 06-16-2024 End: 06-16-2024 Emergency department patient visit [facility] Start: 06-14-2024 End: 06-14-2024 ambulatory PADMINI Us [facility] Start: 06-14-2024 End: 06-14-2024 Postop follow up visit related to original px Norma Kinney MD Work Phone: [facility] Comment on above: Surgical followup (P rimary Dx) S/P small bowel rese ction (Primary Dx) Start: 06-14-2024 End: 06-14-2024 [facility] NORMA KINNEY [facility] Start: 06-04-2024 End: 06-10-2024 Evaluation and management of inpatient VINITA DES [facility] Start: 06-03-2024 End: 06-03-2024 Evaluation and management of inpatient [facility] Start: 06-02-2024 End: 06-10-2024 Evaluation and management of inpatient LORAINE Lutz ARI [facility] Start: 06-02-2024 End: 06-02-2024 ambulatory [facility] Start: 06-01-2024 End: 06-10-2024 Evaluation and management of inpatient SHAWN ZAVALARuss [facility] Start: 06-01-2024 End: 06-01-2024 Evaluation and management of inpatient HILARY [facility] Start: 05-31-2024 End: 06-04-2024 Telephone encounter Chandni Harley PA-C Work Phone: [facility] Start: 05-31-2024 End: 06-10-2024 Evaluation and management of inpatient VINITA NUNES [facility] Start: 05-31-2024 End: 06-10-2024 Evaluation and management of inpatient CLARE PACHECO [facility] Start: 05-31-2024 End: 06-10-2024 Evaluation and management of inpatient ANTOINE RUDOLPH [facility] Start: 05-30-2024 ambulatory MIGUEL ANGEL [facility] Start: 05-30-2024 End: 06-10-2024 Evaluation and management of inpatient ROSALINO Lauren CONTEHLULÚ [facility] Start: 05-30-2024 ambulatory [facility] Magen [facility] Start: 05-30-2024 End: 05-30-2024 Clinisync Result Encounter Parish Courtney DO Work Phone: [facility] External Department Unsolicited Start: 05-30-2024 End: 05-30-2024 Clinisync Result Encounter Parish Courtney DO Work [...] Result Encounter Parish Courtney DO Work Phone: [facility] External Department Unsolicited Start: 05-26-2024 End: 05-26-2024 [...] gestation of Start: 05-24-2024 End: 05-24-2024 ambulatory [facility] Infusion Chair 3 [facility] Comment on above: Crohn's disease of b oth small and large intestine with intestinal obstruction (CMS-HCC) (Primary Dx) Start: 05-14-2024 End: 05-14-2024 Telephone encounter Raulito Jimenez DO Work Phone: [facility] Start: 05-12-2024 End: 05-12-2024 ambulatory YAQUELIN HORNE Not Available Start: 05-12-2024 End: 05-12-2024 flow sheet Yaquelin BELCHER Work Phone: [facility] OB Comment on above: Second trimester pre gnancy; 27 weeks gestation of Start: 05-12-2024 End: 05-12-2024 Bamboo flowsheet Yaquelin BELCHER Work Phone: [facility] Start: 05-12-2024 End: 05-12-2024 Bamboo flowsheet Yaquelin BELCHER Work Phone: [facility] Start: 05-12-2024 End: 05-12-2024 ambulatory [facility] Start: 05-10-2024 End: 05-10-2024 Clinisync [...] Department Unsolicited Start: 05-06-2024 End: 05-06-2024 ambulatory [facility] Start: 05-06-2024 End: 05-06-2024 Office outpatient visit 25 minutes [facility] DO Work Phone: [facility] Comment on above: HTN complicating per ipregnancy, antepartum, second trimester (Primary Dx); 26 weeks gestation of ; Anemia affecting fourth ; HTN, goal below 130/80 Start: 05-04-2024 End: 05-04-2024 Chart abstracting Deepthi Tomas MD Work Phone: [facility] Start: 04-26-2024 End: 04-26-2024 Bamboo flowsheet [...] Orders Only Sharda Montiel MD Work Phone: [facility] Comment on above: Ulcerative colitis w ith other complication, unspecified location (CMS-HCC) (Primary Dx) Start: 04-22-2024 End: 04-22-2024 Orders Only Sharda Montiel MD Work Phone: [facility] Comment on above: Crohn's disease of c olon with other complication (CMS-HCC) (Primary Dx) Start: 04-21-2024 End: 04-21-2024 ambulatory YAQUELIN HORNE Not Available Start: 04-20-2024 End: 04-20-2024 Orders Only Sharda Montiel MD Work Phone: [facility] A Department of [facility] Start: 04-19-2024 End: 04-21-2024 Telephone encounter Sharda Montiel MD Work Phone: [facility] Start: 04-19-2024 End: 04-19-2024 ambulatory HILARY [facility] Start: 04-19-2024 End: 04-19-2024 Office outpatient visit 40 minutes Sharda Montiel MD Work Phone: [facility] Comment on above: Thrombocytopenia (CM S-HCC) (Primary Dx); Crohn's disease with complication, unspecified gastrointestinal tract location (CMS-HCC) Start: 04-19-2024 End: 04-19-2024 ambulatory [facility] Infusion Chair 1 [facility] Comment on above: [...] Department Unsolicited Start: 03-08-2024 End: 03-08-2024 ambulatory [facility] Infusion Chair 1 [facility] Comment on above: Crohn's [...] Sharda Montiel MD Work Phone: [facility] Comment on above: Therapeutic drug mon itoring (Primary Dx) Start: 01-31-2024 End: 01-31-2024 Emergency department patient visit [facility] Start: 01-26-2024 End: 01-26-2024 ambulatory [facility] Start: 01-26-2024 End: 01-26-2024 ambulatory [facility] Start: 01-23-2024 End: 01-23-2024 ambulatory YAQUELIN CHRISTIEEY Not Available Start: 01-23-2024 End: 01-23-2024 Office outpatient visit 5 minutes [facility] Courtney Nurse [facility] Comment on above: GA: 11w2d Start: 01-13-2024 End: 01-13-2024 Orders Only Dominique Moya PROJECT MANAGER/TEAM COACH-URGENT CARE PHYSICIAN ASSISTANT Work Phone: [facility] Comment on above: Iron deficiency anem ia due to chronic blood loss (Primary Dx); Iron malabsorption; Iron deficiency anemia, unspecified Start: 01-06-2024 End: 01-06-2024 Orders Only Dominique Moya PROJECT MANAGER/TEAM COACH-URGENT CARE PHYSICIAN ASSISTANT Work Phone: Ally [facility] On[facility] Comment on above: Iron deficiency anem ia due to chronic blood loss (Primary Dx); Iron malabsorption; Iron deficiency anemia, unspecified Start: 01-03-2024 End: 01-03-2024 [facility] department [facility] Start: 12-17-2023 End: 12-18-2023 Telephone encounter Raf Zarco RN [facility] Start: 12-12-2023 End: 12-12-2023 ambulatory [facility] Infusion Chair 2 [facility] Comment on above: Crohn's disease of b oth small and large intestine with intestinal obstruction (CMS-HCC) (Primary Dx) Start: 12-01-2023 End: 12-01-2023 Office outpatient visit 25 minutes Dominique Moya PROJECT MANAGER/TEAM COACH-URGENT CARE PHYSICIAN ASSISTANT Work Phone: [facility] Comment on above: Iron deficiency (Ping hussein Dx); Crohn's disease of both small and large intestine with intestinal obstruction (CMS-HCC); Chronic fatigue; Leg cramps; Noncompliance; Iron deficiency anemia due to chronic blood loss; Iron malabsorption; Iron deficiency anemia, unspecified Start: 12-01-2023 End: 12-01-2023 ambulatory [facility]IQUE MO[facility] Start: 12-01-2023 End: 12-01-2023 ambulatory [facility]J [facility]ZARR[facility] Start: 10-31-2023 End: 10-31-2023 Office outpatient visit 25 minutes Sharda Montiel MD Work Phone: [facility] Comment on above: Therapeutic drug mon itoring (Primary Dx); Crohn's disease of both small and large intestine with other complication ([facility]-HCC) Start: 10-31-2023 End: 10-31-2023 ambulatory [facility] Infusion Chair 2 [facility] Comment on above: Crohn's disease of b oth small and large intestine with intestinal obstruction ([facility]-HCC) (Primary Dx) Start: 09-17-2023 End: 09-17-2023 ambulatory [facility] Start: 09-17-2023 End: 09-17-2023 Office outpatient visit 25 minutes Hilary Aviles PROJECT MANAGER/TEAM COACH-URGENT CARE PHYSICIAN ASSISTANT Work Phone: [facility] Comment on above: Current moderate epi sode of major depressive disorder without prior episode (CMS-HCC) (Primary Dx); Crohn's disease of both small and large intestine with intestinal obstruction ([facility]-HCC) Start: 09-15-2023 End: 09-16-2023 Telephone encounter Sharda Montiel MD Work Phone: [facility] Start: 09-15-2023 End: 09-15-2023 ambulatory [facility] Infusion Chair 3 [facility] Comment on above: Crohn's disease of b oth small and large intestine with intestinal obstruction ([facility]-HCC) (Primary Dx) Start: 09-03-2023 End: 09-03-2023 Telephone encounter Hilary Aviles PROJECT MANAGER/TEAM COACH-URGENT CARE PHYSICIAN ASSISTANT Work Phone: [facility] Start: 09-03-2023 End: 09-03-2023 ambulatory [facility] Start: 09-03-2023 End: 09-03-2023 Phys/qhp telephone evaluation 11-20 min Hilary Aviles PROJECT MANAGER/TEAM COACH-URGENT CARE PHYSICIAN ASSISTANT Work Phone: [facility] Comment on above: Reactive depression (Primary Dx) Start: 08-20-2023 End: 08-20-2023 ambulatory [facility] Start: 08-20-2023 End: 08-20-2023 Office outpatient visit 25 minutes Hilary Aviles PROJECT MANAGER/TEAM COACH-URGENT CARE PHYSICIAN ASSISTANT Work Phone: [facility] Comment on above: Anxiety (Primary Dx) Start: 08-04-2023 End: 08-04-2023 ambulatory [facility] Infusion Chair 2 [facility] [...] [facility] Start: 04-21-2023 End: 04-21-2023 ambulatory [facility] Infusion Chair 4 [facility] [...] unspecified location Start: 02-17-2023 End: 02-17-2023 ambulatory [facility] Infusion Chair 3 [facility] Comment on above: Crohn's disease of b oth small and large intestine with intestinal obstruction (CMS-HCC) (Primary Dx) Start: 02-06-2023 End: 02-06-2023 ambulatory [facility] Infusion Chair 3 [facility] Comment on above: Iron deficiency anem ia due to chronic blood loss (Primary Dx); Iron deficiency anemia, unspecified; Iron malabsorption Start: 04-30-2022 End: 04-30-2022 ambulatory SEBASTIAN HERRING Facility: Start: 12-03-2016 End: 12-04-[address] [facility] Start: 11-19-2016 End: 11-26-2016 Ambulatory [address] Kirkpatrick [facility] Start: 10-29-2016 End: 10-30-2016 Ambulatory [address] Kirkpatrick [facility] Start: 10-01-2016 End: 10-01-2016 Ambulatory SAMARA Kirkpatrick [facility] Start: 08-29-2016 End: 08-29-2016 Ambulatory SAMARA Casimiro [facility] Procedures Date Procedure Procedure Detail Performing Clinician Start: 08-02-2024 Adult depression scr eening assessment Hilary Aviles PROJECT MANAGER/TEAM COACH-URGENT CARE PHYSICIAN ASSISTANT Work Phone: Start: 07-15-2024 Urnls dip stick/tabl et rgnt non-auto w/o micrscp Yaquelin BELCHER Work Phone: Start: 07-06-2024 Adult depression scr eening assessment Padmini Wilson MD Work Phone: Start: 06-21-2024 Adult depression scr eening assessment Norma Kinney MD Work Phone: Start: 06-14-2024 care Care NEREIDA KINNEY Start: 06-14-2024 Adult depression scr eening assessment Norma Kinney MD Work Phone: Start: 05-31-2024 Adult depression scr eening assessment Chandni Harley PA-C Work Phone: Start: 05-30-2024 ALL CBC WITH AUTO DIFF Parish Courtney DO Work Phone: Start: 05-28-2024 ALL CBC WITH AUTO DIFF [...] et rgnt non-auto w/o micrscp Parish Courtney Work Phone: Start: 12-01-2023 Follow-up visit Follow-up DOMINIQUE MOYA Start: 10-31-2023 Follow-up visit Follow-up SHARDA MONTIEL Start: 09-17-2023 Adult depression scr eening assessment Hilary Aviles PROJECT MANAGER/TEAM COACH-URGENT CARE PHYSICIAN ASSISTANT Work Phone: Start: 09-17-2023 Microscopic observat ion [Identifier] in Cervix by Cyto stain Sharda Montiel MD Work Phone: Start: 08-20-2023 Adult depression scr eening assessment Hilary Aviles PROJECT MANAGER/TEAM COACH-URGENT CARE PHYSICIAN ASSISTANT Work Phone: Start: 11-23-2020 Adult depression scr eening assessment Pfo 3 Plan of Treatment Date Care Activity Detail Author Start: 09-16-2026 Screening for malign ant neoplasm of cervix Pap Smear [facility] Start: 09-22-2025 Adult BMI Screening Adult BMI Screen ing [facility] Start: 09-08-2025 Tobacco Screening Tobacco Screening [facility] Start: 08-25-2025 Adult BMI Screening Adult BMI Screen ing [facility] Start: 08-25-2025 Tobacco Screening Tobacco Screening [facility] Start: 08-09-2025 Adult BMI Screening Adult BMI Screen ing [facility] Start: 08-02-2025 Adult BMI Screening Adult BMI Screen ing [facility] Start: 08-02-2025 Depression Screening Depression Scre ening [facility] Start: 08-02-2025 Tobacco Screening Tobacco Screening [facility] Start: 07-08-2025 Adult BMI Screening Adult BMI Screen ing [facility] Start: 07-08-2025 Tobacco Screening Tobacco Screening [facility] Start: 07-06-2025 Depression Screening Depression Scre ening [facility] Start: 06-28-2025 Adult BMI Screening Adult BMI Screen ing [facility] Start: 06-28-2025 Tobacco Screening Tobacco Screening [facility] Start: 06-21-2025 Depression Screening Depression Scre ening [facility] Start: 06-17-2025 Tobacco Screening Tobacco Screening [facility] Start: 06-14-2025 Adult BMI Screening Adult BMI Screen ing [facility] Start: 06-14-2025 Depression Screening Depression Scre ening [facility] Start: 06-14-2025 Tobacco Screening Tobacco Screening [facility] Start: 06-04-2025 Adult BMI Screening Adult BMI Screen ing [facility] Start: 05-31-2025 Depression Screening Depression Scre ening [facility] Start: 05-31-2025 Tobacco Screening Tobacco Screening [facility] Start: 05-06-2025 Adult BMI Screening Adult BMI Screen ing [facility] Start: 05-06-2025 Depression Screening Depression Scre ening [facility] Start: 05-06-2025 Tobacco Screening Tobacco Screening [facility] Start: 04-19-2025 Adult BMI Screening Adult BMI Screen ing [facility] Start: 04-19-2025 Tobacco Screening Tobacco Screening [facility] Start: 01-30-2025 Adult BMI Screening Adult BMI Screen ing [facility] Start: 01-30-2025 Tobacco Screening Tobacco Screening [facility] Start: 01-11-2025 End: 01-11-2025 Patient encounter procedure [facility] Start: 01-08-2025 End: 07-08-2025 D-Dimer D-Dimer Lab Routine Other acute pulmonary embolism without acute cor pulmonale (CMS-HCC) Acute deep vein thrombosis (DVT) of distal end of right lower extremity (CMS-HCC) Expected: 01/08/2025 (Approximate), Expires: 07/08/2025 [facility] Work Phone: Comment on above: Expected: 01/08/2025 (Approximate), Expires: 07/08/2025 Start: 01-02-2025 Adult BMI Screening Adult BMI Screen ing [facility] Start: 01-02-2025 Tobacco Screening Tobacco Screening [facility] Start: 12-31-2024 End: 12-31-2024 Patient encounter procedure 12/31/2024 1:30 PM EST Office Visit [facility] Department of [address] [phone] Josephine Turner PA [address] [address] [facility] Department of [facility] Start: 12-15-2024 End: 12-15-2024 ambulatory 12/15/2024 1:00 PM EST Infusion [facility] [address] [phone] [facility] Start: 12-11-2024 Adult BMI Screening Adult BMI Screen ing [facility] Start: 12-02-2024 End: 12-02-2024 Patient encounter procedure 12/02/2024 10:15 AM EDT Office Visit Ally L [facility] - [facility] On[facility] [address] [place] [phone] Mj Pizarro MD [address] [place] [address] [address] [place] [phone] Ally Richey [facility] Start: 11-03-2024 End: 11-03-2024 ambulatory 11/03/2024 1:00 PM EDT Infusion [facility] [address] [phone] [facility] Start: 11-01-2024 End: 11-01-2024 ambulatory 11/01/2024 10:00 AM EDT Infusion [facility] [address] [phone] [facility] Start: 10-30-2024 Adult BMI Screening Adult BMI Screen ing [facility] Start: 10-30-2024 Tobacco Screening Tobacco Screening [facility] Start: 10-18-2024 End: 10-18-2024 Patient encounter procedure 10/18/2024 2:30 PM EDT Procedure Visit JESSICA TAYLOR [address] [place] [address] [place] [phone] Kimi Simmons LIZZETH [address] [place] [phone] Arrived [facility] Luiza TAYLOR Comment on above: Arrived Start: 10-11-2024 Influenza vaccination Influenza Vacc ine [facility] Start: 10-04-2024 End: 10-04-2024 Patient encounter procedure 10/04/2024 7:40 AM EDT Office Visit [facility] [address] [phone] Hilary Aviles, PROJECT MANAGER/TEAM COACH-URGENT CARE PHYSICIAN ASSISTANT [address] [facility] - [place], [place] [address] [facility] Start: 09-27-2024 End: 09-27-2024 Patient encounter procedure 09/27/2024 8:00 AM EDT Office Visit [facility]ly [facility], A Department of [address] [address] [place] [address] [place] [address], [address] [address] Formerly [facility], [facility] Department of [facility] Start: 09-20-2024 End: 09-20-2024 Patient encounter procedure 09/20/2024 3:00 PM EDT Office Visit [facility] [address] [facility] [place] [phone] Yaquelin Horne PA [address] [place] [address] [facility] Start: 09-20-2024 End: 09-20-2024 ambulatory 09/20/2024 10:00 AM EDT Infusion [facility] Infusion [address] [place] [phone] [facility] Start: 09-16-2024 Adult BMI Screening Adult BMI Screen ing [facility] Start: 09-16-2024 Depression Screening Depression Scre ening [facility] Start: 09-16-2024 Tobacco Screening Tobacco Screening [facility] Start: 09-14-2024 Adult BMI Screening Adult BMI Screen ing [facility] Start: 09-02-2024 Tobacco Screening Tobacco Screening [facility] Start: 08-30-2024 End: 08-30-2024 Patient encounter procedure 08/30/2024 2:30 PM EDT Appointment [facility] [address] [place] [phone] Lumbar pain [facility] Comment on above: Lumbar pain Start: 08-25-2024 End: 08-25-2024 ambulatory 08/25/2024 9:00 AM EDT Infusion [facility] [address] [place] [address] [facility] Start: 08-19-2024 Adult BMI Screening Adult BMI Screen ing [facility] Start: 08-19-2024 Depression Screening Depression Scre ening [facility] Start: 08-19-2024 Tobacco Screening Tobacco Screening [facility] Start: 08-09-2024 End: 08-09-2024 ambulatory 08/09/2024 10:00 AM EDT Infusion [facility] [address] [phone] [facility] Start: 08-03-2024 Adult BMI Screening Adult BMI Screen ing [facility] Start: 08-03-2024 End: 08-03-2024 Patient encounter procedure 08/03/2024 9:30 AM EDT Office Visit [facility] [address] [place] [address] Jayjay Clayton, PROJECT MANAGER/TEAM COACH-URGENT CARE PHYSICIAN ASSISTANT [address] [place] [address] [facility] Start: 07-08-2024 End: 07-08-2024 Patient encounter procedure 07/08/2024 2:15 PM EDT Office Visit [facility] [address] [facility] [address] [place] [address] Cee Turner, PROJECT MANAGER/TEAM COACH-URGENT CARE PHYSICIAN ASSISTANT [address] [facility] [place] [address] [facility] Start: 07-06-2024 End: 07-06-2024 Patient encounter procedure 07/06/2024 12:00 PM EDT Office Visit [facility] [address] [place] [phone] Padmini Wilson MD [address] [place] [address] [facility] Start: 06-28-2024 End: 06-28-2024 Patient encounter procedure 06/28/2024 11:00 AM EDT [facility] Department of [address] [place] [address] Sharda Montiel MD [address] [facility], [address] [place] [address] [facility], A Department of [facility] Start: 06-28-2024 End: 06-28-2024 ambulatory 06/28/2024 10:30 AM EDT Infusion [facility] Infusion [address] [place] [address] [address] [place] [address] [facility] Start: 06-21-2024 End: 06-21-2024 ambulatory 06/21/2024 9:00 AM EDT Visit [facility] Services [address] [place] [phone] Norma Kinney MD [address] [place] [facility] [phone] [facility] Start: 06-09-2024 End: 06-09-2024 Patient encounter procedure 06/09/2024 2:50 PM EDT Routine [facility] [address] [place] [address] Yaquelin Horne PA [address] [place] [address] [facility] Start: 06-02-2024 End: 06-02-2024 Patient encounter procedure 06/02/2024 8:45 AM EDT Office Visit [facility] at [facility] [address] [place] [phone] Deepthi Tomas MD [address] [facility] 1st [place] [address] [facility] Start: 06-02-2024 End: 06-02-2024 Patient encounter procedure 06/02/2024 7:30 AM EDT Appointment [facility] [address] [place] [phone] [facility] Start: 05-31-2024 End: 05-31-2024 ambulatory 05/31/2024 10:00 AM EDT Infusion [facility] [address] [place] [phone] [facility] Start: 05-26-2024 End: 05-26-2024 Patient encounter procedure 05/26/2024 2:00 PM EDT Routine [facility] [address] [place] [address] Parish Valdez, DO [address] [place] [address] [facility] Start: 05-24-2024 End: 05-24-2024 ambulatory 05/24/2024 10:30 AM EDT Infusion [facility] [address] [phone] [facility] Start: 05-12-2024 End: 05-12-2024 Patient encounter procedure 05/12/2024 2:30 PM EDT Routine [facility] [address] [place] [address] Yaquelin Horne PA [address] [facility] [address] [place], [place] [phone] [facility] Start: 05-06-2024 End: 05-06-2025 Echo complete W/O contrast Echo complete W/O contrast Echocardiography Routine HTN complicating peripregnancy, antepartum, second trimester 26 weeks gestation of Expected: 05/06/2024, Expires: 05/06/2025 [facility] Work Phone: Comment on above: Expected: 05/06/2024 , Expires: 05/06/2025 Start: 04-26-2024 End: 04-26-2024 Patient encounter procedure 04/26/2024 10:10 AM EDT Office Visit [facility] [address] [facility] [place] [address] Parish Valdez, DO [address] [place], [place] [phone] Arrived [facility] Comment on above: Arrived Start: 04-21-2024 End: 04-21-2024 Professional / ancillary services management 04/21/2024 11:00 AM EDT Ancillary Procedure [facility] [address] [facility] [place] [address] [facility] Start: 04-20-2024 Adult BMI Screening Adult BMI Screen ing [facility] Start: 04-19-2024 End: 04-19-2025 Cyanocobalamin vitamin b-12 Vitamin B12 Lab Routine Crohn's disease with complication, unspecified gastrointestinal tract location ([facility]) Expected: 04/19/2024, Expires: 04/19/2025 [facility] Comment on above: Expected: 04/19/2024 , Expires: 04/19/2025 Start: 04-19-2024 End: 04-19-2024 ambulatory 04/19/2024 10:30 AM EDT Infusion [facility] [address] [facility] [address] [place] [address] [facility] Start: 04-19-2024 End: 04-19-2024 Patient encounter procedure [facility] Start: 04-14-2024 End: 04-14-2025 CBC panel - Blood by Automated count CBC Lab Routine Diabetes mellitus screening Expected: 04/14/2024 (Approximate), Expires: 04/14/2025 [facility] Work Phone: Comment on above: Expected: 04/14/2024 (Approximate), Expires: 04/14/2025 Start: 04-14-2024 End: 04-14-2025 Measurement of glucose 1 hour after glucose challenge for glucose tolerance test Glucose tolerance, 1 hour Lab Routine Diabetes mellitus screening Expected: 04/14/2024 (Approximate), Expires: 04/14/2025 [facility] Comment on above: Expected: 04/14/2024 (Approximate), Expires: 04/14/2025 Start: 04-14-2024 End: 04-14-2024 Patient encounter procedure 04/14/2024 1:40 PM EST Routine [facility] [address] [place] [address] Parish Valdez DO [address] [place] [address] [facility] Start: 03-17-2024 End: 09-14-2024 [...] AM EST Routine [facility] [address] [facility] [place] [phone] Yaquelin Horne PA [address] [place] [address] [facility] Start: 03-08-2024 End: 03-08-2024 ambulatory 03/08/2024 10:00 AM EST Infusion [facility] [address] [facility] [address] [place] [address] [facility] Start: 02-21-2024 Adult BMI Screening Adult BMI Screen ing [facility] Start: 02-21-2024 Tobacco Screening [facility] Start: 02-18-2024 Adult BMI Screening Adult [facility] ing [facility] Start: 02-18-2024 End: 02-18-2024 Patient encounter procedure 02/18/2024 11:30 AM EST Routine [facility] [address] [place] [phone] Parish Valdez DO [address] [place] [address] [facility] Start: 02-07-2024 Tobacco Screening [facility] Start: 01-31-2024 Adult BMI Screening Adult BMI Screen ing [facility] Start: 01-31-2024 Tobacco Screening Tobacco Screening [facility] Start: 01-26-2024 End: 01-26-2024 ambulatory 01/26/2024 10:00 AM EST Infusion [facility] [address] [facility] [address] [place] [address] [facility] Start: 01-23-2024 End: 01-22-2025 ABO/Rh ABO/Rh Lab Routine Missed menses , unspecified gestational age Expected: 01/23/2024 (Approximate), Expires: 01/22/2025 [facility] Comment on above: Expected: 01/23/2024 (Approximate), Expires: 01/22/2025 Start: 01-23-2024 End: 01-22-2025 Blood type and Indirect antibody screen panel - Blood Type and screen Lab Routine Missed menses , unspecified gestational age Expected: 01/23/2024 (Approximate), Expires: 01/22/2025 [facility] Work Phone: Comment on above: Expected: 01/23/2024 (Approximate), Expires: 01/22/2025 Start: 01-23-2024 End: 01-22-2025 Drugs of abuse panel - Urine by Screen method Rapid drug screen, urine Lab Routine , unspecified gestational age Encounter for supervision of normal first in first trimester Expected: 01/23/2024 (Approximate), Expires: 01/22/2025 [facility] Comment on above: Expected: 01/23/2024 (Approximate), Expires: 01/22/2025 Start: 01-23-2024 End: 01-22-2025 US Pelvis transvaginal US OB transvaginal Imaging Routine Missed menses Expected: 01/23/2024 (Approximate), Expires: 01/22/2025 [facility] Comment on above: Expected: 01/23/2024 (Approximate), Expires: 01/22/2025 Start: 12-22-2023 End: 12-22-2023 Patient encounter procedure 12/22/2023 3:40 PM EST Office Visit [facility] [address] [place] [phone] Hilary Aviles APRN-URGENT CARE PHYSICIAN ASSISTANT [address] [facility] [address], [place], [place] [phone] [facility] Start: 12-12-2023 End: 12-12-2023 ambulatory 12/12/2023 10:00 AM EDT Infusion [facility] [address] [phone] [facility] Start: 11-20-2023 End: 11-20-2023 Patient encounter procedure 11/20/2023 1:00 PM EDT Office Visit [facility] [address] [place] [phone] [place] [address] [place] [address] [address] [place] [address] [facility] Start: 11-19-2023 End: 11-19-2023 Patient encounter procedure 11/19/2023 9:40 AM EDT Office Visit [facility] [address] [place] [phone] Hilary Aviles APRN-URGENT CARE PHYSICIAN ASSISTANT [address] [facility] [address], [place], [place] [phone] [facility] Start: 10-31-2023 End: 10-30-2024 C-reactive protein C-reactive protein Lab Routine Crohn's disease of both small and large intestine with other complication ([facility]) Expected: 10/31/2023, Expires: 10/30/2024 [facility] Comment on above: Expected: 10/31/2023 , Expires: 10/30/2024 Start: 10-31-2023 End: 10-30-2024 Cyanocobalamin vitamin b-12 Vitamin B12 Lab Routine Crohn's disease of both small and large intestine with other complication ([facility]) Expected: 10/31/2023, Expires: 10/30/2024 [facility] Comment on above: Expected: 10/31/2023 , Expires: 10/30/2024 Start: 10-31-2023 End: 10-30-2024 Erythrocyte sedimentation rate Erythrocyte Sedimentation Rate (ESR) Lab Routine Crohn's disease of both small and large intestine with other complication ([facility]) Expected: 10/31/2023, Expires: 10/30/2024 [facility] Comment on above: Expected: 10/31/2023 , Expires: 10/30/2024 Start: 10-31-2023 End: 10-31-2023 ambulatory 10/31/2023 9:30 AM EDT Infusion [facility] [address] [place] [address] [address] [facility] [place] [address] [facility] Start: 10-31-2023 End: 10-31-2023 Patient encounter procedure 10/31/2023 9:00 AM EDT Office Visit [facility] [address] [place] [address] [address] [facility] [place] [address] [place] [address] [place] [address], [address] [place] [address] [facility] Start: 10-27-2023 End: 10-27-2023 ambulatory 10/27/2023 12:00 PM EDT Infusion [facility] [address] [place] [address] [address] [facility] [place] [address] [facility] Start: 10-27-2023 End: 10-27-2023 Patient encounter procedure 10/27/2023 11:30 AM EDT Office Visit [facility] [address] [place] [address]. [address] [facility] [place] [address] [place] [address] [place] [address], [address] [facility] [place] [address] [facility] Start: 10-12-2023 Influenza vaccination Influenza Vacc ine [facility] Start: 09-17-2023 End: 09-17-2023 Patient encounter procedure 09/17/2023 9:20 AM EDT Office Visit [facility] [address] [place] [address] [place] [phone] Hilary Aviles, PROJECT MANAGER/TEAM COACH-URGENT CARE PHYSICIAN ASSISTANT [address] [facility] [address], [place] [address] [facility] Start: 09-15-2023 End: 09-15-2023 ambulatory 09/15/2023 10:00 AM EDT Infusion [facility] [address] [phone] [facility] Start: 06-17-2023 End: 06-17-2023 Patient encounter procedure 06/17/2023 11:15 AM EDT Office Visit [facility] [address] [phone] Meaghan King PA-C [address] [address] [facility] Start: 06-10-2023 End: 06-10-2023 ambulatory 06/10/2023 10:30 AM EDT Infusion [facility] [address] [facility] [address] [place] [address] [facility] Start: 04-21-2023 End: 04-21-2023 ambulatory 04/21/2023 10:00 AM EDT Infusion [facility] [address] [facility] [address] [place] [address] [facility] Start: 03-31-2023 End: 03-31-2023 ambulatory 03/31/2023 10:00 AM EST Infusion [facility] [address] [facility] [place] [address] [facility] Start: 02-17-2023 End: 02-17-2023 ambulatory 02/17/2023 11:30 AM EST [facility]fusion [facility] [address] [facility] [address] [place] [address] [facility] Start: 10-11-2022 Influenza vaccination Influenza Vacc ine [facility] Start: 11-23-2021 Depression Screening Depression Scre ening [facility] Start: 2010 Screening for malign ant neoplasm of cervix Pap Smear [facility] Start: 2008 DTaP,Tdap and Td Vaccines (1 - Tdap) DTaP,Tdap and Td Vaccines (1 - Tdap) [facility] Start: 11-11-2007 Adult BMI Follow Up Plan Adult BMI F ollow Up Plan [facility] Bacteria identified in Urine by Culture Urine culture Microbiology Routine Missed menses Ordered: 01/23/2024 [facility] Comment on above: Ordered: 01/23/2024 Bacteria identified in Urine by Culture Urine culture Microbiology Routine 6 weeks follow-up Ordered: 07/15/2024 [facility] Work Phone: Comment on above: Ordered: 07/15/2024 End: 10-30-2024 Basic metabolic 2000 panel - Serum or Plasma Basic Metabolic Panel Lab Routine Therapeutic drug monitoring Crohn's disease of both small and large intestine with other complication ([facility]) 1 Occurrences starting 10/31/2023 until 10/30/2024 [facility] Comment on above: 1 Occurrences starti ng 10/31/2023 until 10/30/2024 End: 10-30-2024 Calprotectin, F Calprotectin, F Lab Routine Crohn's disease of both small and large intestine with other complication ([facility]) 1 Occurrences starting 10/31/2023 until 10/30/2024 [facility] Work Phone: Comment on above: 1 Occurrences starti ng 10/31/2023 until 10/30/2024 End: 04-22-2025 Calprotectin, F Calprotectin, F Lab Routine Crohn's disease of colon with other complication ([facility] 1 Occurrences starting 04/22/2024 until 04/22/2025 [facility] Work Phone: Comment on above: 1 Occurrences starti ng 04/22/2024 until 04/22/2025 End: 04-23-2025 Calprotectin, F Calprotectin, F Lab Routine Ulcerative colitis with other complication, unspecified location ([facility] 1 Occurrences starting 04/23/2024 until 04/23/2025 [facility] Work Phone: Comment on above: 1 Occurrences starti ng 04/23/2024 until 04/23/2025 End: 10-30-2024 CBC panel - Blood by Automated count CBC without diff Lab Routine Therapeutic drug monitoring 1 Occurrences starting 10/31/2023 until 10/30/2024 [facility] Comment on above: 1 Occurrences starti ng 10/31/2023 until 10/30/2024 CBC W Auto Different ial panel - Blood CBC and differential Lab Routine Missed menses , unspecified gestational age Ordered: 01/23/2024 [facility] Comment on above: Ordered: 01/23/2024 End: 04-19-2025 CBC W Auto Differential panel - Blood CBC auto differential Lab Routine Thrombocytopenia ([facility] 1 Occurrences starting 04/19/2024 until 04/19/2025 [facility] Work Phone: Comment on above: 1 Occurrences starti ng 04/19/2024 until 04/19/2025 End: 07-09-2025 CBC W Auto Differential panel - Blood CBC auto differential Lab STAT Other iron deficiency anemia 1 Occurrences starting 07/09/2024 until 07/09/2025 [facility] Work Phone: Comment on above: 1 Occurrences starti ng 07/09/2024 until 07/09/2025 CHLAMYDIA TRACHOMATI S (GENITO/STI) CHLAMYDIA TRACHOMATIS (GENITO/STI) Lab Routine STD exposure Ordered: 03/17/2024 [facility] Comment on above: Ordered: 03/17/2024 End: 07-09-2025 Cyanocobalamin vitamin b-12 Vitamin B12 Lab STAT Other iron deficiency anemia 1 Occurrences starting 07/09/2024 until 07/09/2025 [facility] Comment on above: 1 Occurrences starti ng 07/09/2024 until 07/09/2025 Cytology Cervical or vaginal smear or scraping study Pap Smear Pathology and Cytology Routine Well woman exam with routine gynecological exam Ordered: 10/18/2024 [facility] Work Phone: Comment on above: Ordered: 10/18/2024 End: 07-09-2025 Ferritin [Mass/volume] in Serum or Plasma Ferritin Lab STAT Other iron deficiency anemia 1 Occurrences starting 07/09/2024 until 07/09/2025 [facility] Comment on above: 1 Occurrences starti ng 07/09/2024 until 07/09/2025 End: 07-09-2025 Folate Folate Lab STAT Other iron deficiency anemia 1 Occurrences starting 07/09/2024 until 07/09/2025 [facility] Comment on above: 1 Occurrences starti ng 07/09/2024 until 07/09/2025 Hemoglobin A1c/Hemoglobin.total in Blood Hemoglobin A1c Lab Routine Missed menses , unspecified gestational age Ordered: 01/23/2024 [facility] Comment on above: Ordered: 01/23/2024 Hepatitis B virus surface Ag [Presence] in Serum or Plasma by Immunoassay Hepatitis B surface antigen Lab Routine Missed menses , unspecified gestational age Ordered: 01/23/2024 [facility] Comment on above: Ordered: 01/23/2024 Hepatitis C virus Ab [Presence] in Serum or Plasma by Immunoassay Hepatitis C antibody Lab Routine Missed menses , unspecified gestational age Ordered: 01/23/2024 [facility] Comment on above: Ordered: 01/23/2024 HIV-1/HIV-2 antigen/antibody combination immunoassay HIV-1 and HIV-2 antibodies Lab Routine Missed menses , unspecified gestational age Ordered: 01/23/2024 [facility] Comment on above: Ordered: 01/23/2024 Human papilloma viru s DNA [Presence] in Unspecified specimen by Probe with amplification HPV DNA probe, amplified Microbiology Routine Well woman exam with routine gynecological exam Ordered: 10/18/2024 [facility] Comment on above: Ordered: 10/18/2024 End: 05-31-2025 Infliximab quant w/reflex Infliximab quant w/reflex Lab Routine Crohn's disease of colon with intestinal obstruction (CMS-HCC) 1 Occurrences starting 05/31/2024 until 05/31/2025 [facility] Work Phone: Comment on above: 1 Occurrences starti ng 05/31/2024 until 05/31/2025 End: 07-09-2025 Iron and TIBC Iron and TIBC Lab STAT Other iron deficiency anemia 1 Occurrences starting 07/09/2024 until 07/09/2025 [facility] Comment on above: 1 Occurrences starti ng 07/09/2024 until 07/09/2025 End: 10-30-2024 Liver panel Liver panel Lab Routine Therapeutic drug monitoring Crohn's disease of both small and large intestine with other complication (CMS-HCC) 1 Occurrences starting 10/31/2023 until 10/30/2024 [facility] Comment on above: 1 Occurrences starti ng 10/31/2023 until 10/30/2024 End: 06-08-2024 Mycobacterium TB by Quantiferon Gold Mycobacterium TB by Quantiferon Gold Lab Routine Crohn's disease of both small and large intestine with intestinal obstruction (CMS-HCC) 1 Occurrences starting 06/09/2023 until 06/08/2024 [facility] Work Phone: Comment on above: 1 Occurrences starti ng 06/09/2023 until 06/08/2024 Neisseria gonorrhoea e DNA [Presence] in Unspecified specimen by ROBERT with probe detection Neisseria gonorrhea DNA probe, direct Lab Routine STD exposure Ordered: 03/17/2024 [facility] Comment on above: Ordered: 03/17/2024 End: 02-07-2023 Oxygen Therapy - Maintain SpO2: 90% or greater; *REVENUE SETTLEMENTS ADMINISTRATOR Guidelines for O2: Yes; Document: [email or web address] Oxygen Therapy - Maintain SpO2: 90% or greater; *REVENUE SETTLEMENTS ADMINISTRATOR Guidelines for O2: Yes; Document: [email or web address] uidelines/[email or web address] 2016.pdf Respiratory Care STAT Iron deficiency anemia due to chronic blood loss Iron deficiency anemia, unspecified Iron malabsorption As Needed for 1 Occurrences starting 02/06/2023 until 02/07/2023 [employer] Work Phone: Comment on above: As Needed [...] persistent 1 Occurrences starting 02/20/2023 until 02/21/2024 [employer] Work Phone: Comment on above: 1 Occurrences starti ng 02/20/2023 until 02/21/2024 Reagin Ab [Presence] in Serum by RPR RPR Lab Routine Missed menses , unspecified gestational age Ordered: 01/23/2024 [email or web address] Comment on above: Ordered: 01/23/2024 Rubella antibody, IgG Rubella an tibody, IgG Lab Routine Missed menses , unspecified gestational age Ordered: 01/23/2024 [email or web address] Comment on above: Ordered: 01/23/2024 SURESWAB(R) ADVANCED VAGINITIS PLUS, TMA SURESWAB(R) ADVANCED VAGINITIS PLUS, TMA Pathology and Cytology Routine Vaginal discharge Ordered: 03/17/2024 [employer] Work Phone: Comment on above: Ordered: 03/17/2024 End: 02-02-2025 Thiopurine Metabs Thiopurine Metabs Lab Routine Therapeutic drug monitoring 1 Occurrences starting 02/03/2024 until 02/02/2025 [employer] Work Phone: Comment on above: 1 Occurrences starti ng 02/03/2024 until 02/02/2025 End: 10-30-2024 Thiopurine Metabs Thiopurine Metabs Lab Routine Therapeutic drug monitoring 1 Occurrences starting 10/31/2023 until 10/30/2024 [facility] Comment on above: 1 Occurrences starti ng 10/31/2023 until 10/30/2024 End: 10-30-2024 Vitamin D 25 hydroxy Vitamin D 25 hydroxy Lab Routine Crohn's disease of both small and large intestine with other complication ([facility]) 1 Occurrences starting 10/31/2023 until 10/30/2024 [facility] Comment on above: 1 Occurrences starti ng 10/31/2023 until 10/30/2024 End: 04-19-2025 Vitamin D 25 hydroxy Vitamin D 25 hydroxy Lab Routine Crohn's disease with complication, unspecified gastrointestinal tract location ([facility]) 1 Occurrences starting 04/19/2024 until 04/19/2025 [facility] Comment on above: 1 Occurrences starti ng 04/19/2024 until 04/19/2025 Payers Date Payer Category Payer Medicaid [id number] 2022 Medicaid [id number] 2021 Commercial Managed C are - POS [employer] [id number] 2021 Managed Care HMO (unspecified) [employer] [id number] 2021 Private Health Insurance AETNEFTALI URBANOTNEFTALI POS II [id number] 2021-Present [phone] [address] [place] [address] [id number]. [id number] 1989 Unknown [id number] 2.16.840.1.920381.3.579. 2.593 1989 Unknown [id number] 2.16.840.1.868129.3.579. 2.1286 1989 Unknown [id number] 2.16.840.1.461394.3.579. 2.1259 1989 Unknown [id number] 2.16.840.1.866597.3.579. 2.1259 1989 Unknown [id number] 2.16.840.1.798949.3.579. 2.1259 1989 Unknown [id number] 2.16.840.1.300810.3.579. 2.1259 1989 Unknown [id number] 2.16.840.1.237959.3.579. 2.1259 1989 Unknown [id number] 2.16.840.1.093315.3.579. 2.1259 1989 Unknown [id number] 2.16.840.1.442565.3.579. 2.1259 1989 Unknown [id number] 2.16.840.1.718241.3.579. 2.1259 1989 Unknown [id number] 2.16.840.1.632195.3.579. 2.1259 1989 Unknown [id number] 2.16.840.1.537058.3.579. 2.1259 1989 Unknown [id number] 2.16.840.1.084333.3.579. 2.1286 1989 Unknown [id number] 2.16.840.1.737854.3.579. 2.1286 1989 Unknown [id number] 2.16.840.1.956456.3.579. 2.1286 1989 Unknown [id number] 2.16.840.1.989649.3.579. 2.1286 1989 Unknown [id number] 2.16.840.1.438712.3.579. 2.6 1989 Unknown [id number] 2.16.840.1.101004.3.579. 2.1285 1989 Unknown [id number] 2.16.840.1.798346.3.579. 2.1285 1989 Unknown [id number] 2.16.840.1.244788.3.579. 2.6 1989 Unknown [id number] 2.16.840.1.569309.3.579. 2.1286 1989 Unknown [id number] 2.16.840.1.325556.3.579. 2.1286 1989 Unknown [id number] 2.16.840.1.608313.3.579. 2.1286 1989 Unknown [id number] 2.16.840.1.171212.3.579. 2.1286 1989 Unknown [id number] 2.16.840.1.626976.3.579. 2.6 1989 Unknown [id number] 2.16.840.1.601311.3.579. 2.1286 1989 Unknown [id number] 2.16.840.1.032347.3.579. 2.1286 1989 Unknown [id number] 2.16.840.1.181802.3.579. 2.1286 1989 Unknown [id number] 2.16.840.1.245757.3.579. 2.1286 1989 Unknown [id number] 2.16.840.1.707611.3.579. 2.1286 1989 Unknown [id number] 2.16.840.1.665858.3.579. 2.1286 1989 Unknown [id number] 2.16.840.1.770539.3.579. 2.1286 1989 Unknown [id number] 2.16.840.1.142991.3.579. 2.1286 1989 Unknown [id number] 2.16.840.1.123909.3.579. 2.1286 1989 Unknown [id number] 2.16.840.1.564620.3.579. 2.1286 1989 Unknown [id number] 2.16.840.1.896628.3.579. 2.1286 1989 Unknown [id number] 2.16.840.1.263076.3.579. 2.1286 1989 Unknown [id number] 2.16.840.1.361337.3.579. 2.1286 1989 Unknown [id number] 2.16.840.1.029275.3.579. 2.1286 1989 Unknown [id number] 2.16.840.1.233592.3.579. 2.1286 1989 Unknown [id number] 2.16.840.1.320048.3.579. 2.1286 1989 Unknown [id number] 2.16.840.1.487022.3.579. 2.1286 1989 Unknown [id number] 2.16.840.1.885795.3.579. 2.1286 1989 Unknown [id number] 2.16.840.1.166882.3.579. 2.1286 1989 Unknown [id number] 2.16.840.1.311912.3.579. 2.1286 1989 Unknown [id number] 2.16.840.1.082786.3.579. 2.1286 1989 Unknown [id number] 2.16.840.1.808506.3.579. 2.1286 1989 Unknown [id number] 2.16.840.1.218455.3.579. 2.1286 1989 Unknown [id number] 2.16.840.1.944959.3.579. 2.1286 1989 Unknown [id number] 2.16.840.1.721819.3.579. 2.1286 1989 Unknown [id number] 2.16.840.1.441707.3.579. 2.1286 1989 Unknown [id number] 2.16.840.1.036099.3.579. 2.1286 1989 Unknown [id number] 2.16.840.1.991923.3.579. 2.1286 1989 Unknown [id number] 2.16.840.1.926647.3.579. 2.1286 1989 Unknown [id number] 2.16.840.1.450533.3.579. 2.1286 1989 Unknown [id number] 2.16.840.1.790355.3.579. 2.1286 1989 Unknown [id number] 2.16.840.1.399852.3.579. 2.1286 1989 Unknown [id number] 2.16.840.1.565773.3.579. 2.1286 1989 Unknown [id number] 2.16.840.1.076355.3.579. 2.1286 1989 Unknown [id number] 2.16.840.1.204930.3.579. 2.1286 1989 Unknown [id number] 2.16.840.1.766686.3.579. 2.1286 1989 Unknown [id number] 2.16.840.1.916755.3.579. 2.1286 1989 Unknown [id number] 2.16.840.1.636584.3.579. 2.1286 1989 Unknown [id number] 2.16.840.1.279817.3.579. 2.1286 1989 Unknown [id number] 2.16.840.1.206906.3.579. 2.1286 1989 Unknown [id number] 2.16.840.1.844679.3.579. 2.1286 1989 Unknown [id number] 2.16.840.1.781818.3.579. 2.1286 1989 Unknown [id number] 2.16.840.1.348745.3.579. 2.1286 1989 Unknown [id number] 2.16.840.1.420183.3.579. 2.1286 1989 Unknown [id number] 2.16.840.1.390520.3.579. 2.1286 1989 Unknown [id number] 2.16.840.1.622071.3.579. 2.1286 1959 Private Health Insurance [id number] Social History Date Type Detail Facility Start: 12-27-2021 End: 10-09-2022 Tobacco smoking status MTIS Never smoked tobacco [facility] Start: 12-27-2021 End: 10-09-2022 Tobacco use and exposure Smokeless tobacco non-user [facility] Start: 01-23-2024 End: 10-18-2024 Alcoholic beverage intake Lifetime non-drinker (finding) [facility] Start: 09-15-2023 End: 01-23-2024 History of Social function [facility] Start: 09-15-2023 End: 01-23-2024 Tobacco use panel [facility] Start: 11-19-2023 [facility] Start: 1990 Sex assigned at Female [facility] Start: 09-12-2022 Gender identity Identifies as female gender (finding) [facility] Start: 09-12-2022 Sexual orientation Heterosexual (finding) [facility] Start: 01-31-2024 End: 09-08-2024 Alcoholic beverage intake Current non-drinker of alcohol (finding) [facility] Adolescent depressio n screening assessment 15 [facility] Start: 1990 Sex assigned at Not on file [facility] Start: 09-13-2014 Sex Female (finding) [facility] Has the Locationary, or Number 100 threatened to shut off services in your home in past 12Mo No [facility] The thought of blank brown myself has occurred to me Never [facility] Goals Date Patient Goal Desired Activity /State Personal health goal Comment on above: Formatting of this n ote might be different from the original. Evaluation of progress towards goal: patient to discharge to home. Personal health goal Comment on above: Formatting of this n ote might be different from the original. Evaluation of progress towards goal: Pt plans to DC home self care with family support. Personal health goal Comment on above: Formatting of this n ote might be different from the original. Evaluation of progress towards goal: pt would like to return home with family support vs going to [facility] while her baby remains in NICU Functional Status Date Assessment Result Facility 05-31-2024 Humiliation, Afraid, Rape, and Kick questionnaire [HARK] [facility] Clinical Notes 02-06-2023 to 10-18-2024 Kimi Simmons NP - 10/18/2024 2:30 PM Abdi Barba RN - 09/22/2024 1:00 PM Abdi Barba RN - 09/22/2024 1:00 PM EDTCnatan Rudy, RN - 08/25/2024 9:00 AM EDTPatient Instructions Note Date & Type Note Facility 10-18-2024 History of Present illness Narrative Reason for [...] nursing note reviewed. Exam conducted with a windshield wiper repairer present. Vitals: Estimated body mass index is 28.04 kg/m as calculated from the following: Height [...] Kimi Simmons NP documented in this encounter [facility] 09-22-2024 History of Present illness Narrative Infusion start time: 1328 Patient here for Avsola infusion. Patient denies any recent infections or on antibiotics, open wounds, recent/future surgery, vaccinations or insurance changes. IV started with 22g needle to left hand by Yaquelin Barba RN x1 attempt. Patient tolerated well. Avsola Lot# [id number] Exp- 02/10/2028 Time out performed prior to medication administration. Name, , medication(s) verified IV Infusion END time: 1428 patient infusion complete. IV discontinued, catheter intact, vitals WNL. Patient tolerated infusion well PIV flushed with 20 ml of 0.9% NS after medication infused Katie Gustafson NP , was present in infusion suite during infusion and immediately available. documented in this encounter [facility] 08-25-2024 History of Present illness Narrative Patient is here for IV infed today as scheduled. She has received IV iron in the past and tolerated well, but reviewed process with this type of iron. Patient agreeable to proceed. PIV initiated in left forearm without incident and patient tolerated well. Brisk blood return verified and line flushes with ease. Patient pre medicated with IVPB dexamethasone without issues. At completion, IV flushed until test dose started. Test dose infused over 30 minutes without incident and patient denies any complaints. At completion, IV flushed and patient observed for any adverse reactions and none noted. Infed infused per MAR over 1 hour and patient tolerated well. Upon completion, IV flushed and patient remained on unit for 30 minutes post infusion for observation. At end of observation time, vital signs obtained and stable. PIV discontinued and pressure dressing applied. Patient denies any issues and she was instructed to contact Jayjay Clayton's office with any post infusion issues. Patient verbalized understanding. Discharged in stable condition to private vehicle. documented in this encounter [facility] 08-17-2024 Miscellaneous Notes Left message for patient to call me back. Canceled her 09/27/2024 appt documented in this encounter [facility] 08-17-2024 Telephone encounter Note Left message for patient to call me back. Canceled her 09/27/2024 appt [facility] 08-12-2024 History of Present illness Narrative Changed iv iron to her preferred medication infed TERA Lopez 08/12/24 143 documented in this encounter [facility] 08-11-2024 History of Present illness Narrative Subjective Video Visit via Real-time Synchronous Audiovisual Provider Location: [facility] [address] [place] [phone] Patient Location: Patient's home Video Visit Consent [...] that there are some limitations compared to dsws-vq-piib evaluations. The patient consented to the presence of additional virtual and/or in-person participants. We elected to proceed. Patient ID: Juan Luis Storey is a 33 y.o. female. REBA Mcknight presents for telephone visit. She has been off work for sometime, Due to surgery for bowel obstruction and also a section. She relates severe back pain, that prevents her from bending, climbing, reaching, pushing or pulling. She feels the back pain was caused from an epidural she received for her surgery. Ramos is barely able to lift her . 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 She is to start physical therapy soon for her back, and would like to have this time to work on getting back to her ADL's. The following portions of the patient's history were reviewed and updated as appropriate: allergies, current medications, past family history, past medical history, past social history, past surgical history, problem list, and medication reconciliation was completed including current medication and post discharge medication. Review of Systems Constitutional: Positive for activity change and fatigue. Musculoskeletal: Positive for back pain. Objective Assessment/Plan Juan Luis will be starting physical therapy for severe back pain, which began after an epidural. She is unable to tolerate most activities, and is also limited to standing and walking for only a short time of the day. She has flexeril to use if needed FMLA paperwork completed and faxed to [employer] Follow up for back pain Start physical therapy BUBBA I Kwabena was seen today for paperwork. Diagnoses and all orders for this visit: Acute midline low back pain without sciatica History of epidural anesthesia TERA Church 08/11/24 1405 documented in this encounter [facility] 08-09-2024 History of Present illness Narrative Infusion start time: 1040 Patient here for Avsola infusion. Patient denies any recent infections or on antibiotics, open wounds, recent/future surgery, vaccinations or insurance changes. IV started with 22g needle to left ac by Yaquelin Barba RN x1 attempt. Patient tolerated well. Avsola Lot# [id number] Exp- 12/11/2027 Time out performed prior to medication administration. Name, , medication(s) verified IV Infusion END time: 1140 patient infusion complete. IV discontinued, catheter intact, vitals WNL. Patient tolerated infusion well PIV flushed with 20 ml of 0.9% NS after medication infused Katie Gustafson NP , was present in infusion suite during infusion and immediately available. documented in this encounter [facility] 08-04-2024 Miscellaneous Notes ----- Message from Hanna Maria DO sent at 08/04/2024 9:39 AM EDT ----- ----- Message ----- From: Norma Kinney MD Sent: 08/03/2024 4:39 PM EDT To: Norma Kinney MD; DO Vitor Bolivar Dr. Watson, Tatum Kwabena is still bleeding after her delivery, enough so that her Hb is not recovering. Would you mind pulling her into the office and evaluating her bleeding. The blood management team reached out to me as she is going through a pad sometimes every 45 minutes. Giving her iron infusions without stemming the blood loss won't be as helpful! Please call me at [phone] and let me know if you all can get her in. I'm recalling that it's challenging for her to travel to see us here. Thank you Aleyda Called the patient to get her scheduled left a message for a call back. - Cecelia Romero RN 08/04/24 10:39 AM documented in this encounter [facility] 08-04-2024 Telephone encounter Note ----- Message from Hanna Maria DO sent at 08/04/2024 9:39 AM EDT ----- ----- Message ----- From: Norma Kinney MD Sent: 08/03/2024 4:39 PM EDT To: Norma Kinney MD; DO Vitor Bolivar Dr. Watson, Tatum Kwabena is still bleeding after her delivery, enough so that her Hb is not recovering. Would you mind pulling her into the office and evaluating her bleeding. The blood management team reached out to me as she is going through a pad sometimes every 45 minutes. Giving her iron infusions without stemming the blood loss won't be as helpful! Please call me at [phone] and let me know if you all can get her in. I'm recalling that it's challenging for her to travel to see us here. Thank you Aleyda [facility] 08-04-2024 Telephone encounter Note Called the patient to get her scheduled left a message for a call back. - Cecelia Romero RN 08/04/24 10:39 AM [facility] 08-03-2024 History of Present illness Narrative Benign Hematology/ Patient Blood Management Consultation: Dr. Giovanni BELCHER Patient ID: Juan Luis Storey, 33 y.o. female Requested by: Sharda Montiel MD PCP: HILARY AVILES APRN-LUIGI : 1990 REASON FOR CONSULTATION: ACE CHIEF COMPLAINT: Fatigue HISTORY OF PRESENT ILLNESS: Juan Luis Storey is a 33 y.o. female with history of Crohn's, iron deficiency who presents with ACE. Patient has had issues with severe fatigue. She has had some leg pain and tenderness and went to the hospital due to leg pain. She has not had any bright red blood in her stool. She denies any craving for ice. Currently she is not . States she has bleeding since delivery but notices when she has her menstrual cycle the bleeding increases and she is changing her pad about every 30-40 minutes. Her bleeding slow down for a day or so last month but when she wipes she still had blood. Currently she is on day 11 of her menstrual cycle. She has been on control in the past and stated the Depo shot made her bleed for about a year. She currently is not working right now. She is also having issues with back pain, thinks it is possibly from the epidural. PAST HEMATOLOGY / VASCULAR HISTORY: REVIEW OF SYSTEMS: Complete 10-point ROS is negative except as mentioned in HPI. PAST MEDICAL HISTORY: Past Medical History: Diagnosis Date Acute pain of left knee 12/23/2018 Anemia Anxiety Bowel obstruction (CMS-HCC) 10/17/2017 Chronic diarrhea Colon stricture ([facility]) 04/02/2018 Crohn's colitis ([facility]) Crohn's disease ([facility]) Crohn's disease of both small and large intestine with intestinal obstruction ([facility]) 03/03/2018 Current chronic use of systemic steroids 03/03/2018 Depression Diarrhea 10/17/2017 Added automatically from request for surgery [id number] Difficulty sleeping 01/13/2019 Gall stones History of maternal fourth degree perineal laceration, currently 06/21/2017 History of prior with short cervix, currently 06/21/2017 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 Iron deficiency anemia due to chronic blood loss 07/17/2018 Microcytic anemia 07/17/2018 Pain in both feet 12/14/2018 Psoriasis of scalp 12/14/2018 Pulmonary embolism ([facility]) 05/17/2024 Reactive depression 11/09/2018 Vitamin B 12 deficiency 07/08/2019 PAST SURGICAL HISTORY: Past Surgical History: Procedure Laterality Date N/A 06/03/2024 Performed by Sesar Kay MD at [facility] COLONOSCOPY Left Lateral 10/21/2017 Performed by Sharda Montiel MD at [facility] COLONOSCOPY w/ Bx's & polypectomy N/A 10/08/2021 Performed by Sharda Montiel MD at [facility] ENDOS[facility] EGD N/A 04/02/2018 Performed by Darshana Rae MD at [facility] LAPAROSCOPIC ILEOCECECTOMY, TAKE DOWN OF ILEODUDENAL FISTULA, DRAINAGE OF RETROPERITONEAL ABSCESS, OMENTAL PEDICLE FLAP N/A 04/02/2018 Performed by Jonathan Bautista MD at [facility] LAPAROTOMY EXPLORATORY, SMALL BOWEL RESECTION AND ANASTAMOSIS, AND LYSIS OF ADHESIONS. N/A 05/31/2024 Performed by Padmini Wilson MD at [facility] PAST FAMILY HISTORY: Family History Problem Relation Age of Onset Diabetes Mother Hypertension Mother Anemia Mother Heart failure Mother Stroke Mother Colon cancer Neg Hx SOCIAL HISTORY: Lives in home. Social History Socioeconomic History Marital status: Single Spouse name: Not on file Number of children: Not on file Years of education: Not on file Highest education level: Not on file Occupational History Not on file Tobacco Use Smoking status: Never Smokeless tobacco: Never Vaping Use Vaping status: Never Used Substance and Sexual Activity Alcohol use: No Drug use: No Sexual activity: Not Currently Partners: Male Other Topics Concern Not on file Social History Narrative Not on file Social Drivers of Health Financial Resource Strain: Not on file Food Insecurity: No Food Insecurity (08/02/2024) Hunger Screening Food Insecurity - Worry: Never True Food Insecurity - Inability: Never True Transportation Needs: No Transportation Needs (06/17/2024) PRAPARE - Transportation Lack of Transportation (Medical): No Lack of Transportation (Non-Medical): No Physical Activity: Not on file Stress: Not on file Social Connections: Not on file Interpersonal Safety: Not At Risk (06/17/2024) Humiliation, Afraid, Rape, and Kick questionnaire Fear of Current or Ex-Partner: No Emotionally Abused: No Physically Abused: No Sexually Abused: No Housing Instability: Low Risk (06/21/2024) Housing Instability Housing Instability: No MEDICATIONS: Current Outpatient Medications on File Prior to Visit Medication Sig Dispense Refill apixaban (ELIQUIS) 5 mg tablet Take 1 tablet (5 mg total) by mouth in the morning and 1 tablet (5 mg total) before bedtime. 180 tablet 1 ascorbic acid, vitamin C, (vitamin C) 250 mg tablet 250mg twice (in AM and PM) on Mondays, Wednesdays, and Fridays along with iron pills. 90 tablet 2 azaTHIOprine (IMURAN) 50 mg tablet Take 4 tablets (200 mg total) by mouth in the morning. 270 tablet 1 cholecalciferol, vitamin D3, 2,000 units tablet Take 1 tablet (2,000 Units total) by mouth in the morning. 90 tablet 1 cyclobenzaprine (FLEXERIL) 10 mg tablet Take 1 tablet (10 mg total) by mouth every 8 (eight) hours as needed for muscle spasms. 30 tablet 1 ferrous sulfate 325 (65 FE) mg EC tablet 325mg twice (in AM and PM) on Mondays, Wednesdays, and Fridays. Take with vitamin C. (Patient not taking: Reported on 07/06/2024) 30 tablet 5 folic acid (FOLVITE) 1 mg tablet Take 1 tablet (1 mg total) by mouth in the morning. Current Facility-Administered Medications on File Prior to Visit Medication Dose Route Frequency Provider Last Rate Last Admin [COMPLETED] potassium chloride (KLOR-CON M 20) CR tablet 40 mEq 40 mEq oral Once SelenaTERA Hill 40 mEq at 08/02/24 1858 ALLERGIES: Allergies Allergen Reactions Zoloft [Sertraline] Diarrhea Pt reports this is not an allergy PHYSICAL EXAMINATION: Vital signs: LMP 07/24/2024 (Exact Date) General appearance: awake, alert, oriented, no acute distress LABORATORY DATA: Lab Results Component Value Date WBC 4.1 08/02/2024 WBC 4.1 07/03/2024 WBC 3.9 (L) 06/16/2024 HGB 7.5 (L) 08/02/2024 HGB 8.7 (L) 07/03/2024 HGB 9.3 (L) 06/18/2024 HCT 23.4 (L) 08/02/2024 HCT 26.7 (L) 07/03/2024 HCT 29.1 (L) 06/16/2024 MCV 81 08/02/2024 MCV 87.0 07/03/2024 MCV 91 06/16/2024 PLT 286 08/02/2024 PLT 202 07/03/2024 PLT 345 06/18/2024 Lab Results Component Value Date GLU 121 (H) 08/02/2024 CALCIUM 8.9 08/02/2024 SODIUM 140 08/02/2024 K 3.2 (L) 08/02/2024 CO2 25 08/02/2024 BUN 10 08/02/2024 CREATININE 0.69 08/02/2024 GFR >60 08/24/2020 GFR >60 08/24/2020 Lab Results Component Value Date ALT 9 07/03/2024 AST 17 07/03/2024 ALKPHOS 33 (L) 07/03/2024 Lab Results Component Value Date INR 1.1 06/17/2024 INR 1.0 06/03/2024 INR 1.0 06/02/2024 PROTIME 12.0 06/17/2024 PROTIME 10.9 06/03/2024 PROTIME 11.2 06/02/2024 Lab Results Component Value Date FERRITIN 8 (L) 05/30/2024 FERRITIN 9 (L) 04/19/2024 FERRITIN 12 12/01/2023 IRON 28 (L) 05/30/2024 IRON 78 04/19/2024 IRON 74 12/01/2023 TIBC 553 (H) 05/30/2024 TIBC 475 (H) 04/19/2024 TIBC 344 12/01/2023 IRONSAT 5 (L) 05/30/2024 IRONSAT 16 04/19/2024 IRONSAT 21 12/01/2023 [id number] 193 05/30/2024 [id number] 143 (L) 04/19/2024 [id number] 239 01/26/2024 FOLATE >25.0 05/30/2024 FOLATE 18.8 08/02/2021 FOLATE 24.0 11/12/2012 RETICULOCYTE 3.6 (H) 11/12/2012 Lab Results Component Value Date TSH 0.64 11/17/2022 T4 0.80 11/17/2022 ASSESSMENT/RECOMMENDATIONS: Iron deficiency anemia- In all patients, the cause of ir?n deficiency must be identified and addressed. Currently, ferritin level <30 and hemoglobin less than 12 giving patient a positive diagnosis iron deficiency anemia. She has been taking oral iron for months Follows with Dr. Pizarro- has appt on 12/02/2024 Follows with vascular - LAB trends- 2012- hgb 7.8- 01/13/2013- vag delivery 02/25/2015- vag delivery 2016- hgb 7.4 2017- hgb 8.7- 08/28/2017- vag delivery 10/07/2019-hemoglobin 10.3- blood transfusion 08/24/2020-hemoglobin 8.8 11/22/2020- ferritin 21, hgb 12.8 08/02/2021- ferritin 6 01/23/2023- Saw Dr. Pizarro-ACE- 12/01/2023- ferritin 12 05/30/2024- ferritin 8 05/31/2024 -underwent laparoscopic converted to open ileocolectomy, fistula takedown and drainage of retroperitoneal abscess, exploratory laparotomy with small bowel resection and anastomosis 06/03/2024- - 2 units of prbc 06/05/2024- Venofer 200 mg x4 06/17/2024- Right lower lobe segmental and subsegmental pulmonary embolism Right tibioperoneal DVT undetermined age We discussed common causes of Iron Deficiency Anemia ? Nutritional deficiency: Inadequate dietary iron- For adults in resource-rich countries, dietary ir?? deficiency is exceedingly rare because of ir?n availability in many meats (as heme ir?n) and vegetables (as non-heme iro?), along with routine supplementation of grains with ir?n ? Bleeding: Bl??di?g is the most common cause of iron deficiency in adults. Menstruation Bleeding site-gastrointestinal lesions, Telangiectasias, Renal pulmonary syndromes, Hemorrhoids Medications- NSAIDs ? Impaired absorption: Inflammatory bowel disease, celiac disease, proton pump inhibitors causing reduced gastric acid, H pylori bacteria and autoimmune gastritis. 2.We discussed CBC in detail and bone marrow production of red blood cells- 3. We discussed oral Iron-continue to take can cause constipation, so increase your fluid intake and dietary fiber and/or take an over the counter stool softener (i.e. docusate sodium/Colace, Miralax, etc) if needed. Also Vitamin C 500 mg can help with iron absorption and Vitamin B12 500 mcg can help with your anemia 4. We discussed IV iron- had Venofer - will try for monoferric Patients with a history of significant allergies and/or asthma may have an increased risk of hypersensitivity reactions. Most common adverse reactions are nausea, vomiting, chest pain, backache, hypersensitivity, dyspnea, hypotension, pruritus, flushing, and dizziness. Severe adverse reactions including circulatory failure (severe hypotension, shock including in the context of anaphylactic reaction) Plan- IV Iron monoferric- electra Lab recheck in 6 weeks Will reach out to vascular about menstrual cycles heavy and >7 days Will reach out to [employer] Could try Accrufer will order to see if we can get approval - for now will continue ferrous sulfate Pt to follow up with JUAREZ- but if Dr. Pizarro feels that she should continue with benign Hematology-we have no problems with continue to follow Jayjay Clayton NP Patient Blood Management/Bloodless Medicine Office [phone] TERA Lopez 08/03/24 1316 documented in this encounter [facility] 08-02-2024 History of Present illness Narrative Subjective CC: Back pain Patient ID: Juan Luis Storey is a 33 y.o. female. Juan Luis presents with mid-back pain. She feels this maybe related to a past epidural, but is unsure. She has had several surgeries over the past few months. She has a past medical history of Crohn's colitis, depression, psoriasis of scalp and internal duodenal fistula. She presented to [facility] on 05/30/2024 for evaluation of superior abdominal pain concerning for obstruction versus ileus with enteritis (she was 29 weeks at initial presentation). She underwent exploratory laparotomy with small-bowel resection and anastomosis and lysis of adhesions with Dr. Wilson on 05/31/2024. Postoperatively she developed preeclampsia with severe features and was taken for a with the OBGYN team and Dr. Kay on 06/03/2024. She was discharged on 06/10. She presented back to the emergency department on 06/16 with vaginal bleeding and shortness of breath. During the workup she underwent a CTA of the chest which showed a right lower lobe segmental and subsegmental PE. Echo without signs of right heart strain. Lower extremity venous Doppler with age indeterminate right tibioperoneal vein DVT. She was initiated on IV heparin and transitioned to Eliquis upon discharge. I have discussed the possibility that the back pain maybe related to a PE. She stated she still wanted evaluated at this office, but did agree to go to the ED for PE/DVT work up. States the mid-back pain began in the past 3-4 weeks. Describes this as sharp pain. States is having difficulty lifting laundry baskets, or the baby carrier. States her back feels weak. She has not tried any heat or ice. She has 3 other children at home. States the children's father is helpful, but does not live in the same home. Also when asked, volunteer that she has been having sharp/stabbing chest pain off and on for the past two weeks. She denies shortness of breath, but relates pain in both lower legs. States she is due to see hematology in [place], tomorrow for an iron transfusion. States her last HGB was 8. Back Pain Associated symptoms include chest pain. The following portions of the patient's history were reviewed and updated as appropriate: allergies, current medications, past family history, past medical history, past social history, past surgical history, problem list, and medication reconciliation was completed including current medication and post discharge medication. Review of Systems Constitutional: Positive for fatigue. HENT: Negative. Eyes: Negative. Respiratory: Negative. Negative for shortness of breath. Cardiovascular: Positive for chest pain. Negative for leg swelling. Gastrointestinal: Negative. Musculoskeletal: Positive for back pain. Negative for gait problem. Skin: Negative. Neurological: Negative. Hematological: Negative. Psychiatric/Behavioral: Negative. Objective Physical Exam Vitals and nursing note reviewed. Constitutional: Appearance: Normal appearance. She is well-developed. Comments: BMI: 26.43 HENT: Head: Normocephalic and atraumatic. Right Ear: Hearing and external ear normal. Left Ear: Hearing and external ear normal. Nose: Nose normal. No rhinorrhea. Mouth/Throat: Lips: [place]. Mouth: Mucous membranes are moist. Pharynx: Oropharynx is clear. Uvula midline. No oropharyngeal exudate. Eyes: General: Lids are normal. Conjunctiva/sclera: Conjunctivae normal. Pupils: Pupils are equal, round, and reactive to light. Cardiovascular: Rate and Rhythm: Normal rate and regular rhythm. Pulses: Normal pulses. Heart sounds: Normal heart sounds. Pulmonary: Effort: Pulmonary effort is normal. Breath sounds: Normal breath sounds and air entry. Abdominal: General: There is no distension. Palpations: Abdomen is soft. Tenderness: There is no abdominal tenderness. Musculoskeletal: General: Normal range of motion. Cervical back: Normal range of motion and neck supple. No tenderness. Lymphadenopathy: Cervical: No cervical adenopathy. Skin: General: Skin is warm and dry. Comments: Mid-line surgical incision well approximated Neurological: General: No focal deficit present. Mental Status: She is alert and oriented to person, place, and time. Psychiatric: Mood and Affect: Mood normal. Behavior: Behavior normal. Assessment/Plan Will prescribe Flexeril for back pain, may need physical therapy. Sent to ED for PE/DVT work-up. Patient wanted seen at office prior to going to ED, although advised to go to ED first. Report called to ED. Juan Luis will also need FMLA completed, since is scheduled to return to work on August 11, 2024. Start Flexeril 1/2 tab (10) mg every 8 hours as needed Recommend using heat or ice to mid-back Report called to ED Follow up in 2 months for back pain, sooner if needed Tatum Yuan was seen today for back pain. Diagnoses and all orders for this visit: Acute midline low back pain without sciatica - cyclobenzaprine (FLEXERIL) 10 mg tablet; Take 1 tablet (10 mg total) by mouth every 8 (eight) hours as needed for muscle spasms. Other acute pulmonary embolism without acute cor pulmonale (CMS-HCC) Iron deficiency anemia, unspecified Iron malabsorption Crohn's disease of both small and large intestine with intestinal obstruction ([facility]) TERA Church 08/02/24 1553 documented in this encounter [facility] 08-02-2024 Miscellaneous Notes Patient was initially scheduled for an appointment to address back pain on 08/19/2024. Patient calling into office to see if we had earlier availability. Patient moved appointment to today 08/02/24 at 2:00 PM. Patient added that she wanted to discuss concerns over blood clots. Credit Reference Clerk added note to appointment note. When reviewing chart, provider discussed with entry writer that patient should be evaluated in ER for concerns over blood clots. Credit Reference Clerk made contact with patient a moment ago and advised that if there is any indication or concern over blood clot, that patient should be evaluated in ER due to previous history of blood clots. Patient verbalized understanding. Patient still wants to keep appointment for today to discuss her back pain, but will intend to seek ER evaluation for blood clots. documented in this encounter [facility] 08-02-2024 Telephone encounter Note Patient was initially scheduled for an appointment to address back pain on 08/19/2024. Patient calling into office to see if we had earlier availability. Patient moved appointment to today 08/02/24 at 2:00 PM. Patient added that she wanted to discuss concerns over blood clots. Credit Reference Clerk added note to appointment note. When reviewing chart, provider discussed with entry writer that patient should be evaluated in ER for concerns over blood clots. Credit Reference Clerk made contact with patient a moment ago and advised that if there is any indication or concern over blood clot, that patient should be evaluated in ER due to previous history of blood clots. Patient verbalized understanding. Patient still wants to keep appointment for today to discuss her back pain, but will intend to seek ER evaluation for blood clots. [facility] 07-15-2024 History of Present illness Narrative Reason for Appointment: Patient ID: Juan Luis Storey is a 33 y.o. female who presents for 6wks PP Patient presents today for Post Follow Up appointment. MEDICATIONS Current Outpatient Medications Medication Instructions azaTHIOprine (Imuran) 50 MG tablet TAKE 3 TABLETS BY MOUTH IN THE MORNING cholecalciferol (VITAMIN D-3) 1,000 Units Cobalamin Combinations (B-12) 100-5000 MCG sublingual tablet B12 folic acid (FOLVITE) 1,000 mcg, Oral, Every morning HYDROcodone-acetaminophen ([place]) 5-325 MG tablet 1 tablet, Oral, Every 6 hours PRN inFLIXimab-dyyb (Inflectra) 100 MG injection 5 mg/kg, Intravenous labetalol (Normodyne) 100 MG tablet phenazopyridine (PYRIDIUM) 100 mg, Oral, 3 times daily PRN ALLERGIES Allergies Allergen Reactions Sertraline Diarrhea Pt [...] HEART CORONARY 06/16/2024 CT ANGIOGRAM TAVR 06/16/2024 REVIEW OF SYSTEMS Review of Systems: Review [...] reviewed. Vitals: Estimated body mass index is 27.04 kg/m as calculated from the following: Height as of 09/15/23: 5' 5 . Weight as of this encounter: 162 lb 8 oz. BP: 130/90 Patient's last menstrual period was 11/05/2023. ASSESSMENT & PLAN ICD-10-CM 1. 6 weeks follow-up Z39.2 POCT urinalysis dipstick manually resulted Urine culture phenazopyridine (Pyridium) 100 MG tablet Post Follow Up: Patient is doing well. Patient presents today for 6 week visit. Patient is s/p delivery. Patient states depression but denies suicidal and homicidal ideations. All options were discussed with the patient regarding control and patient desires none at this time. Follow Up: Patient is to return for annual unless needed otherwise. Documented by SIMI Frazier on behalf of: SIMI Frazier documented in this encounter [facility] 07-09-2024 Miscellaneous Notes Spoke with pt to schedule referral appt with jayjay on 08/03 at 9 am. PT is aware to complete labs prior and no fasting is required. Labs can be done at any [facility] documented in this encounter [facility] 07-09-2024 Telephone encounter Note Spoke with pt to schedule referral appt with jayjay on 08/03 at 9 am. PT is aware to complete labs prior and no fasting is required. Labs can be done at any [facility] 07-09-2024 History of Present illness Narrative Lab orders placed for up coming appointment. documented in this encounter [facility] 07-08-2024 History of Present illness Narrative Images from the original note were not included. [facility] [address] [place] [address] DR GIBBS [address] [place] [phone] Subjective: Patient ID: Juan Luis Storey is a 33 y.o. female. Chief Complaint Chief Complaint Patient presents with hospital discharge PE, rle dvt after ex lap for SBO 05/31 and 06/03. (please make next appt in [place]) History of Present Illness: 33 year old female with past medical history of Crohn's colitis, depression, psoriasis of scalp and internal duodenal fistula. She has presented to [facility] on 05/30/2024 for evaluation of superior abdominal pain concerning for obstruction versus ileus with enteritis (she was 29 weeks at initial presentation). She underwent exploratory laparotomy with small-bowel resection and anastomosis and lysis of adhesions with Dr. Wilson on 05/31/2024. Postoperatively she developed preeclampsia with severe features and was taken for a with the OBGYN team and Dr. Kay on 06/03/2024. She was discharged on 06/10. She had presented back to the emergency department on 06/16 with vaginal bleeding and shortness of breath. During the workup she underwent a CTA of the chest which showed a right lower lobe segmental and subsegmental PE. Echo without signs of right heart strain. Lower extremity venous Doppler with age indeterminate right tibioperoneal vein DVT. She was initiated on IV heparin and transitioned to Eliquis upon discharge. She presents today for hospital follow up. Denies any lower extremity edema. Reports chronic shortness of breath that is unchanged. She is tolerating the Eliquis without any bleeding complications. She denies any Prior history of VTE episode. Patient Active Problem List Diagnosis Anemia affecting fourth Crohn's disease of both small and large intestine with intestinal obstruction (CMS-HCC) Microcytic anemia Iron deficiency anemia due to chronic blood loss Reactive depression Psoriasis of scalp Anxiety Pain in both feet Acute pain of left knee Difficulty sleeping Anemia Vitamin B 12 deficiency Iron deficiency anemia, unspecified Iron malabsorption Congestion of nasal sinus COVID-19 Chronic pain in right foot Bone cyst of foot Current moderate episode of major depressive disorder without prior episode (CMS-HCC) HTN complicating peripregnancy, antepartum, second trimester Pulmonary embolism (CMS-HCC) History of small bowel obstruction Current Outpatient Medications: apixaban (ELIQUIS DVT-PE TREAT 30D START) 5 mg (74 tabs) tablets,dose pack tablet, Take 2 tablets by mouth twice daily for 7 days, then take 1 tablet twice daily, Disp: 74 tablet, Rfl: 0 ascorbic acid, vitamin C, (vitamin C) 250 mg tablet, 250mg twice (in AM and PM) on Mondays, Wednesdays, and Fridays along with iron pills., Disp: 90 tablet, Rfl: 2 azaTHIOprine (IMURAN) 50 mg tablet, Take 4 tablets (200 mg total) by mouth in the morning., Disp: 270 tablet, Rfl: 1 cholecalciferol, vitamin D3, 2,000 units tablet, Take 1 tablet (2,000 Units total) by mouth in the morning., Disp: 90 tablet, Rfl: 1 folic acid (FOLVITE) 1 mg tablet, Take 1 tablet (1 mg total) by mouth in the morning., Disp: , Rfl: apixaban (ELIQUIS) 5 mg tablet, Take 1 tablet (5 mg total) by mouth in the morning and 1 tablet (5 mg total) before bedtime., Disp: 180 tablet, Rfl: 1 ferrous sulfate 325 (65 FE) mg EC tablet, 325mg twice (in AM and PM) on Mondays, Wednesdays, and Fridays. Take with vitamin C. (Patient not taking: Reported on 07/08/2024), Disp: 30 tablet, Rfl: 5 The following portions of the patient's history were reviewed and updated as appropriate: allergies, current medications, past family history, past medical history, past social history, past surgical history and problem list. Review of Systems: Review of Systems Constitutional: Negative for appetite change, chills, diaphoresis, fatigue and fever. HENT: Negative for congestion, facial swelling, nosebleeds, sinus pressure, sore throat and trouble swallowing. Eyes: Negative for pain, redness and visual disturbance. Respiratory: Positive for shortness of breath. Negative for cough, chest tightness and wheezing. Cardiovascular: Negative for chest pain, palpitations and leg swelling. Gastrointestinal: Negative for abdominal distention, abdominal pain, constipation, diarrhea, nausea and vomiting. Genitourinary: Negative for dysuria, flank pain, frequency, hematuria and urgency. Musculoskeletal: Negative for arthralgias and joint swelling. Skin: Negative for pallor, rash and wound. Neurological: Negative for dizziness, syncope, facial asymmetry, weakness, light-headedness, numbness and headaches. Objective: Vitals BP 104/66 (BP Site: Right Arm, BP Postition: Sitting, BP CUFF SIZE: M (9-13 inches)) Ht 165.1 cm (5' 5 ) Wt 73 kg (161 lb) LMP 07/08/2024 No BMI 26.79 kg/m Physical Exam Physical Exam Constitutional: Appearance: Normal appearance. HENT: Head: Normocephalic and atraumatic. Cardiovascular: Rate and Rhythm: Normal rate. Pulses: Dorsalis pedis pulses are 2+ on the right side and 2+ on the left side. Pulmonary: Effort: Pulmonary effort is normal. Neurological: General: No focal deficit present. Mental Status: She is alert and oriented to person, place, and time. Vascular: Right Lower Extremity Right lower extremity pulses DP: 2+ Right lower extremity edema: none Left Lower Extremity Left lower extremity pulses DP: 2+ Left lower extremity edema: none Studies Reviewed CTA chest completed 06/16/2024 IMPRESSION: * Right lower lobe segmental and subsegmental pulmonary embolism as above. * Please see above for further details. Lab Results Component Value Date DDIMER <150 11/17/2022 Lab Results Component Value Date GLU 106 (H) 07/03/2024 CALCIUM 9.4 07/03/2024 SODIUM 142 07/03/2024 K 3.6 07/03/2024 CO2 29 07/03/2024 BUN 7 07/03/2024 CREATININE 0.64 07/03/2024 Lab Results Component Value Date WBC 4.1 07/03/2024 HGB 8.7 (L) 07/03/2024 HCT 26.7 (L) 07/03/2024 MCV 87.0 07/03/2024 PLT 202 07/03/2024 Assesment: Tatum Yuan was seen today for hospital discharge. Diagnoses and all orders for this visit: Other acute pulmonary embolism without acute cor pulmonale ([facility]) - D-Dimer; Future - apixaban (ELIQUIS) 5 mg tablet; Take 1 tablet (5 mg total) by mouth in the morning and 1 tablet (5 mg total) before bedtime. Acute deep vein thrombosis (DVT) of distal end of right lower extremity ([facility]) - D-Dimer; Future - apixaban (ELIQUIS) 5 mg tablet; Take 1 tablet (5 mg total) by mouth in the morning and 1 tablet (5 mg total) before bedtime. Plan Plan: 33-year-old female who developed a provoked PE/lower extremity DVT. Presents for a hospital follow up. She is currently tolerating Eliquis without any bleeding complications. Denies any significant lower extremity edema. She has chronic shortness of breath that is unchanged. Discussed with the patient since this was a provoked episode related to recent surgery hypercoagulable workup does not need to be completed. Would recommend a full 6 months to a year course of DOAC due to the caliber of the event. We will plan to see her back in 6 months with a D-dimer that time. Refill for Eliquis sent to her pharmacy on file. This note was created with the assistance of a speech recognition program. While intending to generate a timely document that accurately reflects the content of the visit, no guarantee can be provided that every grammatical or spelling mistake has been or will be identified or corrected. Thank you for your understanding. TERA Dial APRN-CNP 07/08/24 4823 documented in this encounter [facility] 07-06-2024 History of Present illness Narrative Images from the original note were not included. Outpatient Clinic Progress Note Subjective Juan Luis Storey is a 33 y.o. female presents as a follow up s/p exploratory laparotomy, small bowel resection w/ anastamosis with Dr. Wilson on 05/31/24. She is recovering well and has no complaints at this time. Her wound is healing well with only small scabs. She is performing ADLs without issue, eating without N/v, and is having regular BM. She denies any blood per rectum. Objective Vitals: Pulse: [108] 108 Resp: [17] 17 BP: (94)/(81) 94/81 General: Awake, alert and oriented x3, in no acute distress HENT: Head atraumatic, normocephalic, external ears and nose are normal Eyes: Conjunctivae clear, non-icteric, EOMI Pulmonary: Regular, non-labored respirations, without use of accessory muscles, no stridor Cardiovascular: Regular rate and rhythm, pulses 2+, non-edematous x4 extremities Abdomen: Soft, non-tender, non-distended, surgical scar is healing well with small scabs around the umbilicus Musculoskeletal: Range of motion grossly normal x4 extremities, no deformity x4 extremities Neurological: CN 2-12 grossly intact, sensation grossly intact Skin: Warm, dry, without jaundice Assessment Juan Luis Storey is a 33 y.o. female is s/p exploratory laparotomy, small bowel resection w/ anastamosis Plan Activities as tolerated Return to clinic as needed documented in this encounter [facility] 06-28-2024 History of Present illness Narrative Infusion start time: 1245 Patient here for [facility] infusion. Patient denies any recent infections or on antibiotics, open wounds, recent/future surgery, vaccinations or insurance changes. IV started with 22g needle to left ac by Yaquelin Barba RN x2 attempt. Patient tolerated well. [employer]sola Lot# [id number] 2 vials Exp- 12/11/2027 Lot # [id number] 2 vials Exp Time out performed prior to medication administration. Name, , medication(s) verified 1345 patient's [facility]s[employer] infusion complete. IV flushed with normal saline. 1348 IV infusion completed. IV discontinued, catheter intact, vitals WNL. Patient tolerated infusion well documented in this encounter [facility] 06-28-2024 History of Present illness Narrative [facility] Follow Up Visit CHIEF COMPLAINT: Chief Complaint Patient presents with Abdominal Pain Patient here for a hospital follow up. Patient had a bowel obstruction, followed with a . Patient states she has no current pain away. HISTORY OF PRESENT ILLNESS: 33F h/o gallstones, h/o DVT/PE on ac, and complicated ileocolonic Crohn's disease here for f/u. Last seen 04/2024; summary of that visit: In 12/2023, she reached out notifying us [...] 7, HBI = 0 c/w clnical remission. RECS: Cont current regimen of AZA 150mg/d, IFX 5mg/kg q6 wks, folic acid 1mg/d; vitamin. Will cont to monitor nutritional and inflammatory markers, next due 07/2024, however will update now due to noncompliance w supplementation and to follow up on new thrombocytopenia noted on recent labs. Due for therapeutic drug monitoring labs as well. We discussed the timing of her upcoming delivery w plans to time her infusion to be done around 6 weeks prior to her estimated delivery date, around 06/28/24. She was to proceed w recently ordered iron studies per Hematology. She was advised to at least take a multivitamin for women containing iron. Interval history / Interim evaluation: Labs 06/18/24: Hgb 9.3, plts nl Labs 04/19/2024: 6TGN 101 (235-450), 6MMP < 475; vitD 12, B12 low at 143, CBC w Hgb 10.4, otherwise unremarkable, MCV nl; ferritin 9, iron studies w iron 78, sat 16%, TIBC elevated at 475 06/16/24 CTA AP: No evidence of gastrointestinal hemorrhage source. Prominent uterus compatible with recent gravid state. Prominent tortuous vasculature within the retroperitoneum, lower lateral abdomen and pelvic cavity. Brief filling defect in proximal left gonadal vein could represent small thrombus. Delayed images show enhancement of some of the pelvic peritoneum raising concern for either peritonitis or early organizing fluid collection.Scattered air in small bowel without obstructive pattern. Potential enteritis or ileus pattern. Path from ex lap 05/31/24: 2 benign segments of small bowel with dilated lumen, transmural hemorrhagic ischemic necrosis and acute serositis. Resection margins are viable and unremarkable. No granuloma, dysplasia or neoplasm. Labs showed subtherapeutic levels of AZA. Her vitD was very low as was her B12 and iron studies showed some iron-deficiency. She was advised to proceed w high-dose vitD for 8 weeks followed by daily vitD, to make sure her vitamins contain iron, and to start B12 1000 mcg daily. Unfortunately, she was admitted 05/2024 for abd pain w concerns for obstruction requiring ex lap w small-bowel resection and anastomosis w lysis of adhesions. Postoperatively, she developed preeclampsia w severe features in ultimately required an emergent on 06/03/2024. She presented 06/18/2024 w SOB and calf pain and possible melena and was found to have a DVT and an acute PE. She was started on heparin gtt and then transitioned to Eliquis upon discharge w no evidence of GI bleeding noted on CTA abdomen pelvis or clinically. Path from her resected small bowel specimen did not show evidence of active Crohn's, rather likely SBO was 2/2 adhesions and ischemia. Her recent visits have documented good recovery. She had her baby are doing well, the baby is still in the NICU. While in the hospital, she required blood transfusions and IV iron. Her Hgb is improving since the time of discharge. Plan is for anticoagulation for 6 mths to one year. She has follow up appt with Dr. Pizarro on 12/02/24. Today, she notes she's doing ok overall. She's having 2 BMs/d, BSS 5. No bleeding. She remains on IFX 5mg/kg q6wks (last infusion was 05/24/24) + AZA 150mg/d and folic acid 1mg/d. SIBDQ = 7, HBI = 0 c/w clnical remission. Short IBD Questionnaire (SIBDQ): Short IBD Questionnaire How often has the feeling of fatigue or of being tired and worn out been a problem for you during the last 2 weeks? : None of the time How often during [...] you felt relaxed and free of tension?: Almost all of the time How much of the [...] Zoloft [sertraline] Current Medications: Current Outpatient Medications: apixaban (ELIQUIS DVT-PE TREAT 30D START) 5 mg (74 tabs) tablets,dose pack tablet, Take 2 tablets by mouth twice daily for 7 days, then take 1 tablet twice daily, Disp: 74 tablet, Rfl: 0 folic acid (FOLVITE) 1 mg tablet, Take 1 tablet (1 mg total) by mouth in the morning., Disp: , Rfl: ascorbic acid, vitamin C, (vitamin C) 250 mg tablet, 250mg twice (in AM and PM) on Mondays, Wednesdays, and Fridays along with iron pills., Disp: 90 tablet, Rfl: 2 azaTHIOprine (IMURAN) 50 mg tablet, Take 4 tablets (200 mg total) by mouth in the morning., Disp: 270 tablet, Rfl: 1 cholecalciferol, vitamin D3, 2,000 units tablet, Take 1 tablet (2,000 Units total) by mouth in the morning., Disp: 90 tablet, Rfl: 1 ferrous sulfate 325 (65 FE) mg EC tablet, 325mg twice (in AM and PM) on Mondays, Wednesdays, and Fridays. Take with vitamin C., Disp: 30 tablet, Rfl: 5 I reviewed and reconciled this patient's medication [...] left knee 12/23/2018 Anemia Anxiety Bowel obstruction ([facility]) 10/17/2017 Chronic diarrhea [place] [place] 04/02/2018 Cro[place]'s [place] [place] [place] Crohn's disease of both small and large intestine with intestinal obstruction ([facility]) 03/03/2018 Current chronic use of systemic steroids 03/03/2018 Depression Diarrhea 10/17/2017 Added automatically from request for surgery [id number] Difficulty sleeping 01/13/2019 Gall stones History of maternal fourth degree perineal laceration, currently 06/21/2017 History of prior with short cervix, currently 06/21/2017 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 Iron deficiency anemia due to chronic blood loss 07/17/2018 Microcytic anemia 07/17/2018 Pain in both feet 12/14/2018 Psoriasis of scalp 12/14/2018 Pulmonary embolism ([facility]) 05/17/2024 Reactive depression 11/09/2018 Vitamin B 12 deficiency 07/08/2019 Past Surgical History: Past Surgical History: Procedure Laterality Date N/A 06/03/2024 Performed by Sesar Kay MD at [facility] COLONOSCOPY Left Lateral 10/21/2017 Performed by Sharda Montiel MD at [facility] COLONOSCOPY w/ Bx's & polypectomy N/A 10/08/2021 Performed by Sharda Montiel MD at [facility] END[facility] EGD N/A 04/02/2018 Performed by Darshana Rae MD at [facility] LAPAROSCOPIC ILEOCECECTOMY, TAKE DOWN OF ILEODUDENAL FISTULA, DRAINAGE OF RETROPERITONEAL ABSCESS, OMENTAL PEDICLE FLAP N/A 04/02/2018 Performed by Jonathan Bautista MD at [facility] LAPAROTOMY EXPLORATORY, SMALL BOWEL RESECTION AND ANASTAMOSIS, AND LYSIS OF ADHESIONS. N/A 05/31/2024 Performed by Padmini Wilson MD at [facility] SOCIAL HISTORY: Social History Tobacco Use Smoking status: Never Smokeless tobacco: Never Vaping Use Vaping status: Never Used Substance Use Topics Alcohol use: No Drug use: No PHYSICAL EXAM: BP 124/76 Wt 73.5 kg (162 lb) LMP 11/05/2023 BMI 26.96 kg/m Body mass index is 26.96 kg/m . GEN: alert and oriented x3, [...] CBC: Lab Results Component Value Date WBC 3.9 (L) 06/16/2024 HGB 9.3 (L) 06/18/2024 HCT 29.1 (L) 06/16/2024 MCV 91 06/16/2024 RDW 18.1 (H) 06/16/2024 RDW 16.5 (H) 06/05/2024 PLT 345 06/18/2024 CMP: Lab Results Component Value Date K 3.9 06/18/2024 CL 107 06/18/2024 CL 104 06/05/2024 CO2 27 06/18/2024 BUN 5 06/18/2024 GLU 99 06/18/2024 GLU 137 (H) 06/10/2024 GLU 101 (H) 06/05/2024 Iron Studies: Lab Results Component Value Date IRON 28 (L) 05/30/2024 TIBC 553 (H) 05/30/2024 FERRITIN 8 (L) 05/30/2024 PT/INR: Lab Results Component Value Date INR 1.1 06/17/2024 INR 1.0 06/03/2024 INR 1.0 06/02/2024 PROTIME 12.0 06/17/2024 PROTIME 10.9 06/03/2024 PROTIME 11.2 06/02/2024 TSH: Lab Results Component Value Date TSH 0.64 11/17/2022 VITAMIN B12: Lab Results Component Value Date [id number] 193 05/30/2024 FOLATE: Lab Results Component Value Date FOLATE >25.0 05/30/2024 DIAGNOSTIC STUDIES REVIEWED: As noted in the HPI Labs 06/18/24: Hgb 9.3, plts nl Labs 04/19/2024: 6TGN 101 (235-450), 6MMP < 475; vitD 12, B12 low at 143, CBC w Hgb 10.4, otherwise unremarkable, MCV nl; ferritin 9, iron studies w iron 78, sat 16%, TIBC elevated at 475 Labs 01/26/2024: vitD 10, liver panel w [...] Hgb 10.7, MCV wnl; TPMT genetics wnl 06/16/24 CTA AP: No evidence of gastrointestinal hemorrhage source. Prominent uterus compatible with recent gravid state. Prominent tortuous vasculature within the retroperitoneum, lower lateral abdomen and pelvic cavity. Brief filling defect in proximal left gonadal vein could represent small thrombus. Delayed images show enhancement of some of the pelvic peritoneum raising concern for either peritonitis or early organizing fluid collection.Scattered air in small bowel without obstructive pattern. Potential enteritis or ileus pattern. 11/19/17 CTAP w/ IV: redemonstration of inflammatory [...] Flagyl. Needs MAC for any future endoscopies. Path from ex lap 05/31/24: SBO & int hernia, abscess, s/p ex lap, SB resection. 2 benign segments of small bowel with dilated lumen, transmural hemorrhagic ischemic necrosis and acute serositis. Resection margins are viable and unremarkable. No granuloma, dysplasia or neoplasm. Op note 04/02/18 - lap converted to [...] a hysterectomy has been advised by her hand decorator, but that she was not ready to proceed. 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 [address] units q.week x8 and then back to [...] drug monitoring labs. Resume MVI containing iron. - 04/2024: In 12/2023, she reached out notifying us [...] 7, HBI = 0 c/w clnical remission. RECS: Cont current regimen of AZA 150mg/d, IFX 5mg/kg q6 wks, folic acid 1mg/d; vitamin. Will cont to monitor nutritional and inflammatory markers, next due 07/2024, however will update now due to noncompliance w supplementation and to follow up on new thrombocytopenia noted on recent labs. Due for therapeutic drug monitoring labs as well. We discussed the timing of her upcoming delivery w plans to time her infusion to be done around 6 weeks prior to her estimated delivery date, around 06/28/24. She was to proceed w recently ordered iron studies per Hematology. She was advised to at least take a multivitamin for women containing iron. Patient Care Team: Hilary Aviles APRN-LUIGI as PCP - General (Family Medicine) Jonathan Bautista MD as Referring Physician (General Surgery) Sharda Montiel MD as Consulting Physician (Gastroenterology) Mj Pizarro MD as Consulting Physician (Hematology) Norma Kinney MD as Glassblower (Obstetrics & Gynecology) ASSESSMENT AND PLAN: 33F h/o gallstones, h/o DVT/PE on ac, and complicated ileocolonic Crohn's disease here for [...] 2017 Date of dx: 10/2017 h/o surgery: 03/2018 lap converted to open ileocecetomy, RP abscess drainage, duodeno-ileal fistula repair (active Crohn's w fistulous tracts); 05/2024: SBO & int hernia, abscess, s/p ex lap, SB resection (no active Crohn's on path) Medications tried: steroids, AZA 11/2017 - present; [...] scores: SIBDQ = 7 and HBI = 0 as of 06/2024 OV, c/w clinical remission Remission/deep remission: achieved as of last colonoscopy 09/2021 Current regimen: AZA 150mg/d, IFX 5mg/kg q6 wks, folic acid 1mg/d; vitamin --> Labs showed subtherapeutic levels of AZA. Her vitD was very low as was her B12 and iron studies showed some iron-deficiency. She was advised to proceed w high-dose vitD for 8 weeks followed by daily vitD, to make sure her vitamins contain iron, and to start B12 1000 mcg daily. Unfortunately, she was admitted 05/2024 for abd pain w concerns for obstruction requiring ex lap w small-bowel resection and anastomosis w lysis of adhesions. Postoperatively, she developed preeclampsia w severe features in ultimately required an emergent on 06/03/2024. She presented 06/18/2024 w SOB and calf pain and possible melena and was found to have a DVT and an acute PE. She was started on heparin gtt and then transitioned to Eliquis upon discharge w no evidence of GI bleeding noted on CTA abdomen pelvis or clinically. Path from her resected small bowel specimen did not show evidence of active Crohn's, rather likely SBO was 2/2 adhesions and ischemia. Her recent visits have documented good recovery. She had her baby are doing well, the baby is still in the NICU. While in the hospital, she required blood transfusions and IV iron. Her Hgb is improving since the time of discharge. Plan is for anticoagulation for 6 mths to one year. She has follow up appt with Dr. Pizarro on 12/02/24. Today, she notes she's doing ok overall. She's having 2 BMs/d, BSS 5. No bleeding. She remains on IFX 5mg/kg q6wks (last infusion was 05/24/24) + AZA 150mg/d and folic acid 1mg/d. SIBDQ = 7, HBI = 0 c/w clnical remission. -- cont current regimen - due for infusion today and trough level of IFX prior - if +ab, will consider transitioning to Skyrizi - increase AZA to 200mg/d given subtherapeutic levels on recent labs -- will cont to monitor nutritional and inflammatory markers q6mo; due 01/2025 - will check stool calprotectin at this time -- needs ongoing therapeutic drug monitoring labs while on AZA, q6mo (CBC, liver panel); due in 1mo due to dose adjustment, due 07/2024, then in 3mo and if stable, q6mo - annual thiopurine metabolite level while on AZA; will repeat in 6mo after dose adjustment due 12/2024 -- She can plan to breastfeed without concern -- Infants may receive all inactive vaccines, as well as the live rotavirus vaccine, on schedule regardless of in utero or breast milk exposure to IBD medications. However, 's exposed to biologics in utero should avoid the BCG vaccine until 6 months of age. These recommendations are in accordance with the findings of the ongoing PIANO study, The [place] Consensus Statements for the Management of Inflammatory Bowel Disease in , and the clinical care pathway released by the AGA. - AGA clinical practice update on -related gastrointestinal and liver disease: expert review (Gastroenterology. 2023;167(5):9904-8869). - Johnathan Farr, Rey Johnson, Ama N, et al. Inflammatory bowel disease in clinical care pathway: a report from the [place] [employer] [facility] project working group. Gastroenterology. 2019;156(5):5138-2899. - Johnathan Farr, Yady BROWN, Lobito CD. [...] and strongly recommended annual f/u with a cylinder worker and regular use of skin protection -- Cervical cancer prevention: discussed importance of annual pap smears -- VitD: will aim to maintain > 32ng/mL given evidence of multiple benefits of vitamin-D supplementation including bone health, anti-cancer properties, as well as implications for both innate and adaptive immunity; start 1999IU/d -- DEXA: no strong risk factors for bone disease -- Tobacco cessation: n/a, non-smoker -- Nutrition: known chronic ACE; see below; will monitor nutritional markers periodically, q6mo; due 10/2024; cont folic acid supp and resume PO iron + vitC MWF 2. Chronic iron deficiency anemia: she has a longstanding h/o normocytic anemia w baseline Hgb ranging from 9-11 w new microcytosis since 06/2019 attributed to menorrhagia and malabsorption from her Crohn's; she f/u hem/onc and is s/p IV iron, but was then lost to f/u after 2019 until 2022 and has not seen them since. She was previously on PO iron + vitC daily due to forgetfulness w MWF dosing, but has not been taking these. Recent labs w recurrent anemia in the setting of surgery and emergency . --> As above in #1. -- to re-establish and f/u w hematology for likely intermittent IV iron and monitoring -- resume PO iron + vitC on MWF, as above OV in 3 mo w me Thank you for allowing me to participate in this pleasant patient s care. Total time spent was 48 minutes: Preparing to see the patient (e.g., review of tests) Obtaining and/or reviewing separately obtained history Performing a medically appropriate examination and/or evaluation Counseling and educating the patient/family/caregiver Ordering medications, tests, or procedures Referring and communicating with other health behavioral health care coordinator (not separately reported) Documenting clinical information in [...] for your understanding. Camila Montiel MD, MPH [facility] [place] [address] PH: [phone] Tatum Yuan was seen today for abdominal pain. Diagnoses and all orders for this visit: Crohn's disease of both small and large intestine with intestinal obstruction ([facility]) Iron malabsorption Vitamin B 12 deficiency Iron deficiency anemia, unspecified History of small bowel obstruction Other orders - cholecalciferol, vitamin D3, 2,000 units tablet; Take 1 tablet (2,000 Units total) by mouth in the morning. - azaTHIOprine (IMURAN) 50 mg tablet; Take 4 tablets (200 mg total) by mouth in the morning. - ferrous sulfate 325 (65 FE) mg EC tablet; 325mg twice (in AM and PM) on Mondays, Wednesdays, and Fridays. Take with vitamin C. - ascorbic acid, vitamin C, (vitamin C) 250 mg tablet; 250mg twice (in AM and PM) on Mondays, Wednesdays, and Fridays along with iron pills. documented in this encounter [facility] 06-28-2024 Instructions Sharda Montiel MD - 06/28/2024 11:00 AM EDT Labs today, stool test Labs in 1 month I recommend hepatitis A vaccine with your PCP, the health department, or any pharmacy; this is typically a series of 2 injections -- please save documentation of these to update your chart in the future 3. Vitamin D 2000 units daily 4. Oral iron + vitamin C twice daily on Mondays, Wednesdays, and Fridays to limit side effects You can plan to breastfeed without concern. Infants may receive all inactive vaccines, as well as the live rotavirus vaccine, on schedule regardless of in utero or breast milk exposure to IBD medications. However, infant's exposed to biologics in utero should avoid the BCG vaccine until 6 months of age. documented in this encounter [facility] 06-21-2024 History of Present illness Narrative Pt is here for visit Pt states she and baby are doing well, baby in NICU Pt reports incision is healing well, denies signs of infection. Pt has no concerns at this time Mortality Survey completed EPDS 4 Attending Attestation: I saw the patient. I participated and was physically present during the critical/hassan portions of the service. I was directly involved in the management and treatment plan of the patient. I reviewed the resident's note. Additional Notes/Findings: CC: Post Op Visit Summary from 06/14/24 note: Transferred from [place] 05/31/24 for small bowel obstruction at 29 weeks. Care also notable for Crohn's disease with previous open ileocecectomy, fistula takedown and drainage of retroperitoneal abscess. She was on Remicade and azathioprine. H/o 4th degree laceration at previous vaginal delivery On 05/31/24 she underwent an exploratory laparotomy with 70 cm of small bowel resection and anastomosis, lysis of adhesions, due to ischemic gangrenous small bowel. Postoperatively, she was transferred to the SICU where on 06/02/24 she was diagnosed with preeclampsia with severe features, rec'd one unit of PRBC and had O2 requirement. On 06/03/24 she required nicardipine drip for hypertension. 06/03/24 Primary low transverse section done for worsening status of preeclampsia with severe features. She rec'd 2 units PRBC due to starting Hb 7.1 and 1000 ml EBL. She was returned to the SICU. Postoperatively she did not require antihypertensive agent. She progressed from TPN to regular diet prior to release home Released home on POD#10 for exploratory laparotomy and small bowel resection and POD#7 from primary LTCS. S/p venofer 200 mg X 4 06/16/24 admitted for vaginal bleeding, right calf tenderness and sudden onset difficulty breathing. She was released home with diagnosis of a PE on eliquis 20 mg twice daily for 7 days then to decrease to 5 mg twice daily. Plan is for anticoagulation for 6 mths to one year. She has follow up appt with Dr. Pizarro on 12/02/24 Today reports overall doing well She is on azathioprine for her Crohns Depression: Low Risk (06/21/2024) [place] Depression Scale Last EPDS Total Score: 4 Last EPDS Self Harm Result: Never BCM: undecided. PE BP 116/82 Temp 37.1 C (98.8 F) (Oral) Ht 165.1 cm (5' 5 ) Wt 73.3 kg (161 lb 8 oz) LMP 11/05/2023 No BMI 26.88 kg/m Alert, NAD Abdomen: Soft, NT, nondistended Incision: incision healing well without erythema, mass or drainage. Upper abdominal incision with the areas for intentional secondary healing now has granulation tissue started. No purulence or erythema Lab Results Component Value Date WBC 3.9 (L) 06/16/2024 HGB 9.3 (L) 06/18/2024 HCT 29.1 (L) 06/16/2024 MCV 91 06/16/2024 PLT 345 06/18/2024 Imp/Plan Post Op exploratory laparotomy for emergent bowel resection for ischemic bowel and postop for , doing well Has follow up with Dr. Wilson on 07/06/24 Preeclampsia with severe features BP with good control Continue checking. Call if >140/90 Pulmonary embolus diagnosed 06/16/24, now on oral anticoagulant. She has follow up with [facility] on 12/02/24 (Dr. Pizarro) Crohn's disease Has follow up with Dr. Montiel on 06/28/24 Acute blood loss anemia For CBC at 6 week pp visit Return to office for 6 week exam with her primary ob service in [place] Note to patient: The Century Cures Act makes medical notes like these available to patients in the interest of transparency. However, be advised this is a medical document. It is intended as peer to peer communication. It is written in medical language and may contain abbreviations or verbiage that are unfamiliar. It may appear blunt or direct. Medical documents are intended to carry relevant information, facts as evident, and the clinical opinion of the practitioner. CLINIC VISIT Juan Luis Storey is a 33 y.o. female s/p XL with 70 cm of small bowel resection and anastomosis, lysis of adhesions, due to ischemic gangrenous small bowel on 05/31/24, and primary low transverse section d/t worsening preeclampsia with severe features (BP) on 06/03/24. Patient recently presented to [facility] on 06/16/24 for vaginal bleeding, right calf tenderness, and shortness of breath. She was diagnosed with a DVT and pulmonary embolism and was admitted for IV heparin. She was then discharged home on Eliquis 10 mg BID for 7 days followed by Eliquis 5 mg BID. Plan for anticoagulation for 6 months to one year. Since discharge, patient reports she is doing well. No heavy vaginal bleeding; denies passage of blood clots- changes a pad twice a day. Baby doing well She is formula feeding. Previously on depo provera for control and reports bleeding every day. EPDS score 4. Mood is decent. She feels well supported at home. She is still undecided for control Denies fever, chills, nausea, vomiting, headache, visual changes, chest pain, shortness of breath, abdominal pain. Passing gas and having bowel movement. CURRENT MEDICATIONS: Current Outpatient Medications: apixaban (ELIQUIS DVT-PE TREAT 30D START) 5 mg (74 tabs) tablets,dose pack tablet, Take 2 tablets by mouth twice daily for 7 days, then take 1 tablet twice daily, Disp: 74 tablet, Rfl: 0 azaTHIOprine (IMURAN) 50 mg tablet, Take 3 tablets (150 mg total) by mouth in the morning., Disp: 270 tablet, Rfl: 1 folic acid (FOLVITE) 1 mg tablet, Take 1 tablet (1 mg total) by mouth in the morning., Disp: , Rfl: VITALS: Vitals: 06/21/24 1535 BP: 116/82 Temp: 37.1 C (98.8 F) Body mass index is 26.88 kg/m . PHYSICAL EXAM: Gen: alert,appears comfortable, in no distress Psychiatric: mood, memory, affect and judgment normal. Cardiovascular: no lower extremity edema. Pulmonary/Chest: effort normal. No respiratory distress. Abdomen: soft, non-tender, and non-distended. Lower incision from C/S is well healed with no surrounding erythema or induration. Upper incision from ex-lap is healing via secondary intention. Good granulation tissue noted around incision- no active drainage of foul smelling discharge. ASSESSMENT/PLAN: Juan Luis Sotrey is a 33 y.o. female s/p PLTCS. Routine care: - Contraception: undecided - Incision: clean, dry, intact from C/S. Ex lap incision healing well from secondary intention - Mood: stable 2. Preeclampsia with severe features (BP) - Reviewed preeclampsia precautions - normotensive in office - Not on antihypertensives 3. Pulmonary embolism - Doing well on Eliquis - Has follow-up with vascular on 07/08/24 4. S/p XL w/ small bowel resection due to ischemic bowel - Has follow-up with gen surg on 07/06/24 5. Crohn's disease - On azathioprine - Resuming rermicade infusion on 06/28/24, followed by appointment with GI Follow up with Dr. Valdez for remainder of Belinda Pretty MD OBGYN PGY-4 [facility] History of Present illness Narrative Images from the original note were not included. Subjective: Juan Luis Storey presents to the clinic nearly 2 weeks following ex lap and small bowel resection and anastomosis for closed loop small bowel obstruction with gangrene. Eating a regular diet without difficulty. Bowel movements are Normal. Pain is controlled without any medications.. Path report reviewed and discussed with the patient. Objective: BP 111/69 (BP Site: Left Arm, BP Postition: Sitting, BP CUFF SIZE: L (13-17 inches)) Pulse 114 Ht 165.1 cm (5' 5 ) Wt 73.9 kg (163 lb) LMP 11/05/2023 BMI 27.12 kg/m General: alert, appears stated age, and cooperative Abdomen: soft, bowel sounds active, non-tender Incision: healing well, no drainage, no erythema, no hernia, no seroma, no swelling, Small openings remaining in midline incision with good granulation tissue at the floor. Assessment: Doing well postoperatively. Plan: 1. Continue any current medications. 2. Wound care discussed. 3. Continue weight restrictions for a total of 6 weeks 4. Follow up: in 2-3 weeks documented in this encounter [facility] 06-14-2024 History of Present illness Narrative CC: Post Op Visit Transferred from [place] 05/31/24 for small bowel obstruction at 29 weeks. Care also notable for Crohn's disease with previous open ileocecectomy, fistula takedown and drainage of retroperitoneal abscess. She was on Remicade and azathioprine. H/o 4th degree laceration at previous vaginal delivery On 05/31/24 she underwent an exploratory laparotomy with 70 cm of small bowel resection and anastomosis, lysis of adhesions, due to ischemic gangrenous small bowel. Postoperatively, she was transferred to the SICU where on 06/02/24 she was diagnosed with preeclampsia with severe features, rec'd one unit of PRBC and had O2 requirement. On 06/03/24 she required nicardipine drip for hypertension. 06/03/24 Primary low transverse section done for worsening status of preeclampsia with severe features. She rec'd 2 units PRBC due to starting Hb 7.1 and 1000 ml EBL. She was returned to the SICU. Postoperatively she did not require antihypertensive agent. She progressed from TPN to regular diet prior to release home Released home on POD#10 for exploratory laparotomy and small bowel resection and POD#7 from primary LTCS. S/p venofer 200 mg X 4 Today she reports overall feeling better States part of her incision was left open in sections Denies nausea/vomiting, worsening abdominal pain, marked distension Denies headache, visual change, RUQ/Upper abdominal pain BP Log 100-90/60-70s Last BM: yesterday Black in color, then turns green on the toilet paper. Has been like this prior to release from hospital. Depression: Low Risk (06/14/2024) [place] Depression Scale Last EPDS Total Score: 4 Last EPDS Self Harm Result: Never feeding: formula Infant is in the NICU BCM: undecided PE BP 96/64 (BP Site: Right Arm) Pulse 101 Temp 36.8 C (98.3 F) (Oral) Ht 165.1 cm (5' 5 ) Wt 73.8 kg (162 lb 9.6 oz) LMP 11/05/2023 No BMI 27.06 kg/m Alert, NAD Abdomen: Soft, NT, nondistended Incision: Upper incision without erythema Has open skin edges without purulence Lower incision--eva removed and steri strips placed Dry without erythema or mass Lab Results Component Value Date WBC 8.3 06/10/2024 HGB 9.3 (L) 06/10/2024 HCT 27.2 (L) 06/10/2024 MCV 93 06/10/2024 PLT 230 06/10/2024 Final Pathologic Diagnosis Placenta; removal: 432 g mature third-trimester placenta with subchorionic fibrin deposition and intervillous fibrin thrombi (x 3). Unremarkable membranes and unremarkable 3 vessels umbilical cord. Last TDaP: Unknown. TDaP vaccine recommended and education provided. Patient declines today Influenza vaccine recommended and education provided. Patient declines today Imp/Plan Post Op LTCS, doing well POstop laparotomy We were able to call Gen Surg office and they can see her at 1 pm (Thank you, General Surgery!) H/o preeclampsia with severe features with this recent Meds: None Continue twice daily bp checks and log Preeclampsia warnings discussed S/p laparotomy with 70 cm small bowel resection Needs f/u appt with Gen Surg (Leisa) Crohn's Disease Has appt with Dr. Montiel on 06/28/24 and to resume remicade Chronic iron deficiency anemia with superimposed acute blood loss anemia S/p Venofer, total of 800 mg, postop Continue PNV Check CBC 6 weeks pp Return for bp check with HROB 1 week Return to office for exam 3 weeks with primary ob team Note to patient: The Cures Act makes medical notes like these available to patients in the interest of transparency. However, be advised this is a medical document. It is intended as peer to peer communication. It is written in medical language and may contain abbreviations or verbiage that are unfamiliar. It may appear blunt or direct. Medical documents are intended to carry relevant information, facts as evident, and the clinical opinion of the practitioner. Pt here for 1wk post check up EPDS completed=4 IMS completed Pt stated the following: Incision is open it several places, pt does not want eva removed today VB is light, dark red in color Not interested in BC right now Formula feeding C/O bowel movements are loose and black C/O high pulse rate in the 100s Logging BP at home, no log today documented in this encounter [facility] 05-31-2024 Miscellaneous Notes Patient is currently admitted at [facility] after presenting yesterday for acute abdominal pain with CT findings suspicious for ileus versus obstruction. She went for emergent surgery today with General surgery due to concern for ischemic bowel. She was on both azathioprine and Remicade as outpatient with next Remicade infusion scheduled for 06/28/2024. She will need follow up on her surgical recovery as we anticipate her next Remicade infusion will likely need to be postponed pending surgical clearance for resumption of biologics. Note she is 29 weeks . Please help us arrange appropriate follow up for her. Noted, thank you for the update. She should be okay to proceed w next infliximab infusion around 06/28/2024, pending no concerns from surgery. The timing is to plan around her estimated delivery date of 08/04/24. - if possible, would like OV scheduled same day as infusion I would recommend she hold her AZA for 1 week post-operatively, and then resume it. I would also like to check her trough levels and for antibodies. - order in Did you want to put her in for an appointment on the ? Yes, w HI or with me at 11am. Thank you. Patient still admitted. Appointment scheduled. FYI biologic team, discussed with OBGYN resident and their plan is to keep patient admitted until her delivery due to high risk for labor. Asked them to notify us if she is still admitted 06/28 for inpt team to order her remicade infusion if needed. Dr. Montiel aware of plan. This lady ended up undergoing emergency due to severe preeclampsia. I would like to proceed w trough level testing w IFX as a my previous messages and cont w planned infusion for 06/28/2024. - thank you [facility] Tele[facility] encounter Note Patient is currently admitted at [facility] after presenting yesterday for acute abdominal pain with CT findings suspicious for ileus versus obstruction. She went for emergent surgery today with General surgery due to concern for ischemic bowel. She was on both azathioprine and Remicade as outpatient with next Remicade infusion scheduled for 06/28/2024. She will need follow up on her surgical recovery as we anticipate her next Remicade infusion will likely need to be postponed pending surgical clearance for resumption of biologics. Note she is 29 weeks . Please help us arrange appropriate follow up for her. [facility] Work Phone: 05-31-2024 Telephone encounter Note Noted, thank you for the update. She should be okay to proceed w next infliximab infusion around 06/28/2024, pending no concerns from surgery. The timing is to plan around her estimated delivery date of 08/04/24. - if possible, would like OV scheduled same day as infusion I would recommend she hold her AZA for 1 week post-operatively, and then resume it. I would also like to check her trough levels and for antibodies. - order in [facility] 05-31-2024 Telephone encounter Note Did you want to put her in for an appointment on the ? [facility] 05-31-2024 Telephone encounter Note Yes, w HI or with me at 11am. Thank you. [facility] 05-31-2024 Telephone encounter Note Patient still admitted. Appointment scheduled. [facility] 05-31-2024 Telephone encounter Note [facility] biologic team, discussed with OBGYN resident and their plan is to keep patient admitted until her delivery due to high risk for labor. Asked them to notify us if she is still admitted 06/28 for inpt team to order her remicade infusion if needed. Dr. Montiel aware of plan. [facility] 05-31-2024 Telephone encounter Note This lady ended up undergoing emergency due to severe preeclampsia. I would like to proceed w trough level testing w IFX as a my previous messages and cont w planned infusion for 06/28/2024. - thank you [facility] 05-26-2024 History of Present illness Narrative Reason [...] (FOLVITE) 1,000 mcg, Oral, Every morning HYDROcodone-acetaminophen ([place]) 5-325 MG tablet 1 tablet, Oral, Every [...] nursing note reviewed. Exam conducted with a windshield wiper repairer present. Vitals: Estimated body mass index is [...] Parish Valdez DO documented in this encounter [facility] 05-24-2024 History of Present illness Narrative Infusion start time: 1050 am Patient here for Avsola infusion. Patient denies any recent infections or on antibiotics, open wounds, recent/future surgery, vaccinations or insurance changes. IV started with 22g needle to right arm by Yaquelin Barba RN x1 attempt. Patient tolerated well. Avsola Lot# [id number] Exp- 10/11/2027 Time out performed prior to medication administration. Name, , medication(s) verified 1253 patient infusion complete. IV flushed with 20 ml normal saline. IV discontinued, catheter intact, vitals WNL. Patient tolerated infusion well documented in this encounter [facility] 05-14-2024 Miscellaneous Notes Spoke with patient about [...] to mild mitral and pulmonic regurgitation and [id number]-ct-[id number] tricuspid regurgitation which would be the cause for her heart murmur Plan: No further evaluation is necessary at this time. documented in this encounter [facility] 05-14-2024 Telephone encounter Note Spoke with [...] to mild mitral and pulmonic regurgitation and mdmn-ir-frnmdahw tricuspid regurgitation which would be the cause for her heart murmur Plan: No further evaluation is necessary at this time. [facility] 05-12-2024 History of Present illness Narrative [...] (FOLVITE) 1,000 mcg, Oral, Every morning HYDROcodone-acetaminophen ([place]) 5-325 MG tablet 1 tablet, Oral, Every [...] nursing note reviewed. Exam conducted with a windshield wiper repairer present. Vitals: Estimated body mass index is [...] of: SIMI Frazier documented in this encounter [facility] 05-06-2024 Evaluation + Plan note Associated Problem(s): Anemia affecting fourth Patient with history of anemia and iron malabsorption due to chronic inflammatory bowel disease. Hemoglobin on 05/04 was 9.4 begin iron supplement that she had been prescribed. Advised patient that some of her symptoms of shortness of breath and tachycardia could be a result of low hemoglobin levels during [facility] 05-06-2024 Miscellaneous Notes Associated Problem(s): Anemia [...] seek medical care. [facility] 05-06-2024 Evaluation + Plan note Associated [...] or chest pain to seek medical care. [facility] [employer] [facility] 05-06-2024 History of Present illness Narrative Images from the original note were not included. [facility] [address] [place] [address] [place] [address] Patient: Juan Luis Storey Date of : 1990 Encounter Date: 05/06/2024 Subjective: Chief Complaint Chief Complaint Patient presents with Er Follow-up History of Present Illness Juan Luis Storey is a 33 y.o. female, established patient, that presents to the office for ER follow up for elevated blood pressure in patient Hypertension Chronicity: Seen at [facility] on 05/04/24 for shortness of [...] obstruction (CMS-HCC) 10/17/2017 Chronic diarrhea Colon stricture ([facility]) 04/02/2018 Crohn's colitis ([facility]) Crohn's disease ([facility]) Crohn's disease of both small and large intestine with intestinal obstruction ([facility]) 03/03/2018 Current chronic use of systemic steroids 03/03/2018 Depression Diarrhea 10/17/2017 Added automatically from request for surgery [id number] Difficulty sleeping 01/13/2019 Gall stones History of [...] 10/21/2017 Performed by Sharda Montiel MD at [facility] COLONOSCOPY w/ Bx's & polypectomy N/A 10/08/2021 Performed by Sharda Montiel MD at [facility] END[facility] EGD N/A 04/02/2018 Performed by Darshana Rae MD at [facility] LAPAROSCOPIC ILEOCECECTOMY, TAKE DOWN OF ILEODUDENAL FISTULA, DRAINAGE OF RETROPERITONEAL ABSCESS, OMENTAL PEDICLE FLAP N/A 04/02/2018 Performed by Jonathan Bautista MD at [facility] Family History Problem Relation Age of [...] 05/06/24 1:03 PM documented in this encounter [facility] 05-06-2024 Instructions Raulito Jimenez DO - [...] sent through Care Everywhere.High blood pressure and (Panamanian)documented in this encounter [facility] 04-26-2024 History of Present illness Narrative [...] (FOLVITE) 1,000 mcg, Oral, Every morning HYDROcodone-acetaminophen ([place]) 5-325 MG tablet 1 tablet, Oral, Every [...] nursing note reviewed. Exam conducted with a windshield wiper repairer present. Vitals: Estimated body mass index is [...] disease with complication, unspecified gastrointestinal tract location ([facility]) K50.919 Return OB: Patient presents today for [...] She does report she has spoken to [facility] [employer] but does not yet have a scheduled appointment but will reach back out to them to schedule related to non visualized stomach during anatomy scan. Documented by Kimi Simmons NP on behalf of: Parish Valdez DO documented in this encounter [facility] 04-19-2024 Miscellaneous Notes Biologic team, [...] OV note and fax it to her supervisor tile and mottle, Dr. Parish Valdez DO at [facility]. Thank you. Faxed to [phone] Zymfentra 120mg/ml PA was sent to plan via [facility] Hassan number: [id number] documented in this encounter [facility] 04-19-2024 Telephone encounter Note Biologic team, [...] OV note and fax it to her supervisor tile and mottle, Dr. Parish Valdez DO at [facility]. Thank you. [facility] 04-19-2024 Telephone encounter Note Faxed to [phone] [facility] 04-19-2024 Telephone encounter Note Zymfentra 120mg/ml PA was sent to plan via [facility] [place] number: [id number] [facility] 04-19-2024 History of Present illness Narrative Infusion start time: 11:10 am Patient here for her Avsola infusion. Patient denies any recent infections or on antibiotics, open wounds, recent/future surgery, vaccinations or insurance changes. 10:50 am IV started with 22g needle to left AC by JAD Arroyo x1 attempt. Patient tolerated well. Avsola x 4 vials Lot# [id number] Exp- 09/10/2027 Time out performed prior to medication administration. Name, , medication(s) verified 1310 patient infusion complete. IV flushed with normal saline. 1313 IV discontinued, catheter intact, vitals WNL. Patient tolerated infusion well documented in this encounter [facility] 04-19-2024 History of Present illness Narrative [facility] Follow Up Visit CHIEF [...] obstruction (CMS-HCC) 10/17/2017 Chronic diarrhea Colon stricture ([facility]) 04/02/2018 Crohn's colitis ([facility]) Crohn's disease ([facility]) Crohn's disease of both small and large intestine with intestinal obstruction ([facility]) 03/03/2018 Current chronic use of systemic steroids 03/03/2018 Depression Diarrhea 10/17/2017 Added automatically from request for surgery [id number] Difficulty sleeping 01/13/2019 Gall stones History of [...] 10/21/2017 Performed by Sharda Montiel MD at [facility] COLONOSCOPY w/ Bx's & polypectomy N/A 10/08/2021 Performed by Sharda Montiel MD at [facility]COPY EGD N/A 04/02/2018 Performed by Darshana Rae MD at [facility] LAPAROSCOPIC ILEOCECECTOMY, TAKE DOWN OF ILEODUDENAL FISTULA, DRAINAGE OF RETROPERITONEAL ABSCESS, OMENTAL PEDICLE FLAP N/A 04/02/2018 Performed by Jonathan Bautista MD at [facility] SOCIAL HISTORY: Social History Tobacco [...] VITAMIN B12: Lab Results Component Value Date [id number] 01/26/2024 FOLATE: Lab Results Component Value [...] a hysterectomy has been advised by her hand decorator, but that she was not ready to proceed. 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 [address] units q.week x8 and then back to [...] an OV (06/17/23, 06/10/23, 04/14/23, and 06/17/22, 10/1/21 prior to this). Her last infusion of [...] findings of the ongoing PIANO study, The [place] Consensus Statements for the Management of Inflammatory Bowel Disease in , and the clinical care pathway released by the AGA. - AGA clinical practice update on -related gastrointestinal and liver disease: expert review (Gastroenterology. 2023;167(5):8541-0362). - Johnathan Farr, Rey Johnson, Ama N, et al. Inflammatory bowel disease in clinical care pathway: a report from the [place] gastroenterological association [facility] project working group. Gastroenterology. 2019;156(5):0706-1086. - Johnathan Farr, Yady BROWN, Lobito CD. [...] and strongly recommended annual f/u with a cylinder worker and regular use of skin protection -- [...] procedures Referring and communicating with other health behavioral health care coordinator (not separately reported) Documenting clinical information in [...] for your understanding. Camila Montiel MD, [place] [address] PH: [phone] Juan Luis was seen today for follow-up. Diagnoses and all orders for this visit: Thrombocytopenia ([facility]) - CBC auto differential; Future Crohn's disease with complication, unspecified gastrointestinal tract location (CMS-HCC) - Vitamin D 25 hydroxy; Future - Vitamin B12; Future documented in this encounter [facility] 04-19-2024 Instructions Sharda Montiel MD - 04/19/2024 10:00 AM EDT Labs - from today, 02/02/25, and 01/27/25 I recommend hepatitis A vaccines with your PCP, the health department, or any pharmacy; this is typically a series of 2 injections 3. supervisor electronic testing high dose vitamin D from the pharmacy Preventative Health Maintenance for Crohn's and ulcerative colitis -- Skin cancer prevention: I recommend annual follow up with a cylinder worker and regular use of skin protection given the increased risk of skin cancer, especially in patients on immunomodulator (Imuran / azathioprine / 6MP) or biologic medications (Remicade, Humira, Enyvio) -- Cervical cancer prevention: I recommend annual follow up with your supervisor tile and mottle doctor with annual pap smears -- Tobacco [...] would be interested in meeting with a lieutenant shift supervisor please let me or your family doctor [...] the role of diet in IBD: [email or web address] documented in this encounter [facility] 04-14-2024 History of Present illness Narrative [...] nursing note reviewed. Exam conducted with a windshield wiper repairer present. Vitals: Estimated body mass index is [...] Parish Valdez DO documented in this encounter [facility] 03-17-2024 History of Present illness [...] without difficulty and patient was given [facility] order to have obtained. Orders Placed This Encounter Procedures US OB 14+ weeks anatomy scan CHLAMYDIA TRACHOMATIS (GENITO/STI) Neisseria gonorrhea DNA probe, direct Alpha fetoprotein, maternal Follow Up: Patient is to return to our office in 4 weeks for routine OB appointment Documented by SIMI Frazier on behalf of: SIMI Frazier documented in this encounter [facility] 03-08-2024 History of Present illness Narrative Infusion start time: 1040 Patient here for Avsola infusion. Patient denies any recent infections or on antibiotics, open wounds, recent/future surgery, vaccinations or insurance changes. IV started with 22g needle to left forearm by Yaquelin Barba RN x1 attempt. Patient tolerated well. Avsola Lot# [id number] 2vials Exp- 09/10/2027 Lot#[id number] 2 vials Exp08/10/2027 Time out performed prior to medication administration. Name, , medication(s) verified 10:40 am Time out performed with Yaquelin STREET. Avsola to be mixed and administered to patient per current treatment plan orders 1240 patient infusion complete. IV flushed with 10 ml normal saline. IV discontinued, catheter intact, vitals WNL. Patient tolerated infusion well documented in this encounter [facility] 02-18-2024 History of Present illness Narrative Reason [...] nursing note reviewed. Exam conducted with a windshield wiper repairer present. Vitals: Estimated body mass index is [...] or undercooked meat, and stay away from [facility]. Patient has been consulted regarding any [...] Parish Valdez DO documented in this encounter [facility] 01-23-2024 History of Present illness [...] Diagnosis Date Acute Crohn's disease with complication (CMS/[facility]) At standard risk for fall BMI 25.0-25.9,adult [...] or undercooked meat, and stay away from [facility]. Patient has also been advised to [...] Veronica Klein LPN documented in this encounter [facility] 12-17-[address] Montiel, [...] send a letter to the family doctor/PCP, Professor Of Environmental Engineering, and upper cutter out advising against the use of live vaccines for the 1st 6 months of the baby's life and to monitor the baby closely for any signs of infection. Please send her the following as well: [email or web address] I recommend an OV w me in 02/2024 or 03/2024 Please disregard notes below. Summary These recommendations are in accordance with the findings of the ongoing PIANO study, The [employer] [place] Consensus Statements for the Management of Inflammatory [...] clinical care pathway: a report from the [employer] [place] gastro[employer] association [employer] project working group. Gastroenterology. 2019;156(5):4498-9388. Spoke with patient regarding recommendations, sent via [employer]. Will call patient back when March schedule is out, she needs Mondays. documented in this encounter [facility] 12-17-[address] Montiel, Patient called stating she took a urine test this past Friday and it was positive. She receives Inflectra 400 mg every 6 weeks for her Crohn's. She also takes Imuran 150 mg po daily. Ilesha is inquiring if she can continue taking her Imuran and Inflectra infusions? Please advise, thank you [facility] Lab 12-17-2023 Telephone encounter Note Please let her [...] send a letter to the family doctor/PCP, Professor Of Environmental Engineering, and upper cutter out advising against the use of live vaccines for the 1st 6 months of the baby's life and to monitor the baby closely for any signs of infection. Please send her the following as well: [email or web address] I recommend an OV w me in 02/2024 or 03/2024 Please disregard notes below. Summary These recommendations are in accordance with the findings of the ongoing PIANO study, The [place] Consensus Statements for the Management of Inflammatory [...] clinical care pathway: a report from the [employer] [facility] project working group. Gastroenterology. 2019;156(5):9857-7454. [facility] 12-17-2023 Telephone encounter Note Spoke with patient regarding recommendations, sent via Hashtrack. Will call patient back when March schedule is out, she needs Mondays. [facility] 12-12-2023 History of Present illness Narrative Infusion start time: 10:50 am Patient here for Inflectra infusion. Patient denies any recent infections or on antibiotics, open wounds, recent/future surgery, vaccinations or insurance changes. 10:30 am IV started with 22g needle to right hand by JAD Arroyo x1 attempt. Patient tolerated well. Inflectra x 4 vials Lot# [id number] Exp- 04/09/2028 Time out performed prior to medication administration. Name, , medication(s) verified 11:50 am patient infusion complete. IV flushed with 10 ml normal saline. IV discontinued, catheter intact, vitals WNL. Patient tolerated infusion well documented in this encounter [facility] 12-01-2023 History of Present illness Narrative Images from the original note were not included. [facility] [address] [place] [id number] 12/01/2023 Chief Complaint Patient presents with [...] procedures Referring and communicating with other health behavioral health care coordinator (not separately reported) Documenting clinical information in the electronic or other health record Independently interpreting results (not separately reported) and communicating results to the patient/family/caregiver Care coordination (not separately reported) ---- Please note that portions of this note may have been generated using voice recognition M*[employer]ack[employer] dictation software. Although every effort was made to ensure the accuracy of any automated transcriptions, some errors may have occurred. TERA Carbajal 12/01/23 1502 documented in this encounter [facility] 12-01-2023 Instructions TERA Carbajal - 12/01/2023 2:30 PM EDT Pending labs If iron is low, will order Injectafer IV If iron is low, will repeat labs in 3 months CBC-d iron panel ferritin If iron is normal, just follow up yearly as below Follow up yearly with labs same as above documented in this encounter [facility] 10-31-2023 History of Present illness Narrative IV Infusion start time: 944. Patient here for Inflectra infusion. Patient denies any recent infections or on antibiotics, open wounds, recent/future surgery, vaccinations or insurance changes. IV started with 22g needle to left hand by JAD Arroyo x1 attempt. Patient tolerated well. Inflectra x 4 vials Lot# [id number] Exp- [id number] Time out performed prior to medication administration. Name, , medication(s) verified 11:13 am patient infusion complete. IV discontinued, catheter intact, vitals WNL. Patient tolerated infusion well documented in this encounter [facility] 10-31-2023 History of Present illness Narrative [facility] Follow Up Visit CHIEF [...] acid. Interval history / Interim evaluation: Labs 6/24/24: CBC unremarkable, iron studies w iron 46, [...] left knee 12/23/2018 Anemia Anxiety Bowel obstruction ([facility]) 10/17/2017 Chronic diarrhea Colon stricture ([facility]) 04/02/2018 Crohn's colitis ([facility]) Crohn's disease ([facility]) Crohn's disease of both small and large intestine with intestinal obstruction ([facility]) 03/03/2018 Current chronic use of systemic steroids 03/03/2018 Depression Diarrhea 10/17/2017 Added automatically from request for surgery [id number] Difficulty sleeping 01/13/2019 Gall stones History of [...] 10/21/2017 Performed by Sharda Montiel MD at [facility] COLONOSCOPY w/ Bx's & polypectomy N/A 10/08/2021 Performed by Sharda Montiel MD at [facility] EGD N/A 04/02/2018 Performed by Darshana Rae MD at [facility] LAPAROSCOPIC ILEOCECECTOMY, TAKE DOWN OF ILEODUDENAL FISTULA, DRAINAGE OF RETROPERITONEAL ABSCESS, OMENTAL PEDICLE FLAP N/A 04/02/2018 Performed by Jonathan Bautista MD at [facility] SOCIAL HISTORY: Social History Tobacco [...] VITAMIN B12: Lab Results Component Value Date [id number] 1,378 (H) 08/02/2021 FOLATE: Lab Results Component [...] a hysterectomy has been advised by her hand decorator, but that she was not ready to proceed. 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 [place] [address] units [place].week x8 and then back to [...] and strongly recommended annual f/u with a cylinder worker and regular use of skin protection -- [...] procedures Referring and communicating with other health behavioral health care coordinator (not separately reported) Documenting clinical information in [...] for your understanding. Camila Montiel MD, MPH [facility] [place] [address] PH: [phone] Juan Luis was seen today for follow-up. [...] morning. documented in this encounter [facility] 10-31-2023 Instructions Sharda Montiel MD - [...] I recommend annual follow up with a cylinder worker and regular use of skin protection given the increased risk of skin cancer, especially in patients on immunomodulator (Imuran / azathioprine / 6MP) or biologic medications (Remicade, Humira, Enyvio) -- Cervical cancer prevention: I recommend annual follow up with your supervisor tile and mottle doctor with annual pap smears -- Tobacco [...] would be interested in meeting with a lieutenant shift supervisor please let me or your family doctor [...] [email or web address] documented in this encounter [facility] 09-17-2023 History of Present illness Narrative [...] regarding her care. She is currently at [facility]. She is in a vegetative state. [...] of major depressive disorder without prior episode ([facility]) - citalopram (CeleXA) 20 mg tablet; Take 1.5 tablets (30 mg total) by mouth in the morning. Crohn's disease of both small and large intestine with intestinal obstruction ([facility]) TERA Church 09/17/23 1443 documented in this encounter [facility] 09-15-2023 Miscellaneous Notes Refill infusion orders received; approved for now. Must make 10/31/23 OV or can no longer receive infusions here until she is seen. Tried to call patient, busy signal. Sent MyChart message. Patient called. Updated. She verbalized understanding Thank You documented in this encounter [facility] 09-15-2023 Telephone encounter Note Refill infusion orders received; approved for now. Must make 10/31/23 OV or can no longer receive infusions here until she is seen. [facility] 09-15-2023 Telephone encounter Note Tried to call patient, busy signal. Sent MyChart message. [facility] 09-15-2023 Telephone encounter Note Patient called. Updated. She verbalized understanding Thank You [facility] 09-15-2023 History of Present illness Narrative IV Infusion start time: 10:30 am Patient here for Inflectra infusion. Patient denies any recent infections or on antibiotics, open wounds, recent/future surgery, vaccinations or insurance changes. IV started with 22g needle to right AC by JAD Arroyo x1 attempt. Patient tolerated well. Inflectra x 4 vials Lot# [id number] Exp- [id number] Time out performed prior to medication administration. Name, , medication(s) verified 12:10 pm patient infusion complete. IV discontinued, catheter intact, vitals WNL. Patient tolerated infusion well documented in this encounter [facility] 09-03-2023 Miscellaneous Notes Patient presented to front desk clerk window and paid for FMLA today. FMLA faxed. documented in this encounter [facility] 09-03-2023 Telephone encounter Note Patient presented to front desk clerk window and paid for FMLA today. FMLA faxed. [facility] 09-03-2023 History of Present illness Narrative Video Visit via Real-time Synchronous Audiovisual Provider Location: [facility] [address] [place] [phone] Patient Location: Patient's home Video Visit Consent [...] that there are some limitations compared to giet-os-wcrk evaluations. The patient consented to the presence [...] Church 09/03/23 1308 documented in this encounter [facility] 08-20-2023 History of Present illness Narrative [...] Church 08/20/23 1530 documented in this encounter [facility] 08-04-2023 History of Present illness Narrative IV Infusion start time: 1318. Patient here for Inflectra infusion. Patient denies any recent infections or on antibiotics, open wounds, recent/future surgery, vaccinations or insurance changes. IV started with 22g needle to left AC by JAD Arroyo x1 attempt. Patient tolerated well. Inflectra x 4 vials Lot# [id number] Exp- [id number] Time out performed prior to medication administration. [...] of info given. documented in this encounter [facility] 06-18-2023 Miscellaneous Notes Patient has missed the following appointments: 06/17/23 06/10/23 04/14/23 06/17/22 11/10/20 See other note for follow up documented in this encounter [facility] 06-18-2023 Telephone encounter Note Patient has missed the following appointments: 06/17/23 06/10/23 04/14/23 06/17/22 11/10/20 [facility] 06-18-2023 Telephone encounter Note See other note for follow up [facility] 06-10-2023 Miscellaneous Notes SANIYA Cheatham and [...] 06/10/23). No show policy letter sent via [employer] and certified mail. documented in this encounter [facility] 06-10-2023 Telephone encounter Note SANIYA Cheatham and Dr. Montiel, Patient was scheduled today for her Inflectra infusion; was a NO SHOW. She also no showed 04/14/23 Call placed to patient with no answer. Message left for patient to call office back in regards to rescheduling [facility] infusion. [facility] Telephone encounter Note Reviewing the chart it appears she has had multiple no shows even prior to this. Please send no-show / late cancellation fee notice and remind her of the no-show policy and that we are tracking this information. If she no-shows again, she may be discharged from the practice per office policy. Thank you. [facility] 06-10-2023 Telephone encounter Note Patient called and rescheduled 06/18/23 [facility] 06-10-2023 Telephone encounter Note Chaparrita, Patient NO SHOWED for her OV yesterday and did not come to her rescheduled infusion today (she NO SHOWED 06/10/23). [facility] 06-10-2023 Telephone encounter Note No show policy letter sent via [employer] and certified mail. [facility] 04-21-2023 Miscellaneous Notes Due for OV [...] am documented in this encounter [facility] 04-21-2023 Telephone encounter Note Due for OV [facility] 04-21-2023 Telephone encounter Note There is nothing available for a recheck OV , can we use a new patient slot? [facility] 04-21-2023 Telephone encounter Note Yes that's ok [facility] 04-21-2023 Telephone encounter Note Left message for patient to call and schedule. [facility] 04-21-2023 Telephone encounter Note Message left for patient to call back. [facility] 04-21-2023 Telephone encounter Note Patient is scheduled with Meaghan on June 16 at 11:15 am. Infusion is scheduled on June 09 at 10:30 am [facility] 04-21-2023 History of Present illness Narrative 1020 am Patient here for Inflectra infusion. Patient denies any recent infections, open wounds, recent/future surgery, or insurance changes . IV started with 22g needle to right hand by raf street x 1 attempt. Patient tolerated well. Inflectra x 4 vials Lot #[id number] Exp date 12/11/2027 Time out performed with Raf Delatorre RN. 400 mg of Inflectra to be mixed and administered to patient per current treatment plan orders. 1305 patient infusion complete. IV discontinued, catheter intact, vitals WNL. Patient tolerated infusion well documented in this encounter [facility] 04-14-2023 Miscellaneous Notes Patient missed the visit. RN called patient and RN rescheduled patient for 04/21/2023. documented in this encounter [facility] 04-14-2023 Telephone encounter Note Patient missed the visit. RN called patient and RN rescheduled patient for 04/21/2023. [facility] 03-31-2023 Miscellaneous Notes RN was told [...] information. documented in this encounter [facility] 03-31-2023 Telephone encounter Note RN was told that patient is calling regarding her insurance. The phone call was then transferred back to the infusion room. Patient states she lost her secondary insurance and wanted to know to what the amount she will be responsible for. RN informed patient to call her insurance company to find out that information. [facility] 02-20-2023 History of Present illness Narrative Images from the original note were not included. [address] [place] [phone] Patient: Juan Luis Storey Date of [...] morning. LYNDSEY ANDERS MD Family Medicine Physician [facility] 02/20/23 This note was completed with voice recognition software. The document was reviewed for errors however some may still be present. Please do not hesitate to contact/[facility] the author to verify any questions/concerns. documented in this encounter [facility] 02-17-2023 History of Present illness Narrative 1145 Patient here for Inflectra infusion. Patient denies any recent infections, open wounds, recent/future surgery, or insurance changes . Site cleansed with alcohol. IV started with 22g needle by Yaquelin Babra RN in right hand. Patient tolerated well. Lot # [id number] Exp 07/11/27 1422 patient infusion complete. IV discontinued at 1422. Patient tolerated infusion well. documented in this encounter [facility] 02-06-2023 History of Present illness Narrative [...] in stable condition. documented in this encounter [facility] Evaluation note Diagnosis Missed menses , unspecified gestational age Encounter for supervision of normal first in first trimester headache in first trimester documented [facility] encounter [facility]* Diagnosis Therapeutic drug monitoring- Primary Encounter for therapeutic drug monitoring [facility] Diagnosis Second trimester state, incidental 15 weeks gestation of H/O oligohydramnios in prior , currently documented [facility] encounter [facility]* Diagnosis Crohn's disease of both small and large intestine with intestinal obstruction ([facility])- Primary [facility]* Diagnosis Second trimester state, incidental 19 weeks gestation of Vaginal discharge Leukorrhea, not specified as infective STD exposure Screening, , for anatomic survey Encounter for anatomic survey documented in this encounter [facility]* Diagnosis 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 deficiency anemia, unspecified Iron malabsorption Other specified intestinal malabsorption [facility] this [facility]* Diagnosis Crohn's disease of both small and large intestine with intestinal obstruction (CMS-HCC)- [facility] Diagnosis Crohn's disease of both small and large intestine with intestinal obstruction (CMS-HCC)- Primary [facility] this [facility]* Diagnosis Reactive airway disease with acute exacerbation, unspecified asthma severity, unspecified whether persistent- Primary Shortness of breath COVID-19 Sinusitis, unspecified chronicity, unspecified location documented [facility] this [facility]* Diagnosis Crohn's disease of both small and large intestine with intestinal obstruction (CMS-HCC)- Primary documented [facility] this [facility]* Diagnosis Anxiety- Primary Anxiety state, unspecified documented [facility] this [facility]* Diagnosis Crohn's disease of both small and large intestine with intestinal obstruction (CMS-HCC)- Primary documented [facility] this [facility]* Diagnosis Reactive depression- Primary documented [facility] this [facility]* Diagnosis Crohn's disease of both small and large intestine with intestinal obstruction (CMS-HCC)- Primary documented in this [facility]* Diagnosis Current moderate episode of major depressive disorder without prior episode (CMS-HCC)- Primary Crohn's disease of both small and large intestine with intestinal obstruction (CMS-HCC) [facility] this [facility]* Diagnosis Therapeutic drug monitoring- Primary Encounter for therapeutic drug monitoring Crohn's disease of both small and large intestine with other complication (CMS-HCC) [facility] this [facility] Diagnosis Crohn's disease of both small and large intestine with intestinal obstruction (CMS-HCC)- Primary documented [facility] this [facility]* Diagnosis Iron deficiency- Primary [...] deficiency anemia, unspecified [facility] this [facility]* Diagnosis Crohn's disease of both small and large intestine with intestinal obstruction (CMS-HCC)- Primary [facility] Diagnosis 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 Other specified intestinal malabsorption Iron deficiency anemia, unspecified documented [facility] this [facility]* Diagnosis Diabetes mellitus screening Screening for diabetes mellitus Second trimester state, incidental 23 weeks gestation of documented in this encounter [facility]* Diagnosis Thrombocytopenia (CMS-HCC)- Primary Unspecified thrombocytopenia Crohn's disease with complication, unspecified gastrointestinal tract location (CMS-HCC) [facility] this [facility]* Diagnosis Crohn's disease of colon with other complication (CMS-HCC)- Primary [facility] Diagnosis Ulcerative colitis with other complication, unspecified location (CMS-HCC)- Primary documented [facility] this [facility]* Diagnosis Second trimester state, incidental 23 weeks gestation of Crohn's disease with complication, unspecified gastrointestinal tract location (CMS/HCC) documented [facility] encounter [facility]* Diagnosis HTN complicating peripregnancy, antepartum, second trimester- Primary 26 weeks gestation of Anemia affecting fourth HTN, goal below 130/80 [address] [facility] [address] [facility]* Diagnosis Second trimester state, incidental 27 weeks gestation of documented in this encounter [facility]* Diagnosis HTN complicating peripregnancy, antepartum, second trimester- Primary 26 weeks gestation of Anemia affecting fourth HTN, goal below 130/80 Crohn's disease of both small and large intestine with intestinal obstruction (CMS-HCC)- Primary documented [facility] this [facility]* Diagnosis Third trimester state, incidental History of Crohn's disease 29 weeks gestation of documented in this encounter [facility]* Diagnosis HTN complicating peripregnancy, antepartum, second trimester- Primary 26 weeks gestation of Anemia affecting fourth HTN, goal below 130/80 Crohn's disease of colon with intestinal obstruction (CMS-HCC)- Primary documented [facility] this [facility]* Diagnosis HTN complicating peripregnancy, antepartum, second trimester- Primary 26 weeks gestation of Anemia affecting fourth HTN, goal below 130/80 Surgical followup- Primary documented [facility] this [facility]* Diagnosis HTN complicating peripregnancy, antepartum, second trimester- Primary 26 weeks gestation of Anemia affecting fourth HTN, goal below 130/80 S/P small bowel resection- Primary Other postprocedural status documented [facility] this [facility]* Diagnosis HTN complicating peripregnancy, antepartum, second trimester- Primary 26 weeks gestation of Anemia affecting fourth HTN, goal below 130/80 Surgical followup- Primary BP check Screening for hypertension History of severe pre-eclampsia documented [facility] this [facility]* Diagnosis HTN complicating peripregnancy, antepartum, second trimester- Primary 26 weeks gestation of Anemia affecting fourth HTN, goal below 130/80 Crohn's disease of both small and large intestine with intestinal obstruction (CMS-HCC)- Primary Iron malabsorption Other specified intestinal malabsorption Vitamin B 12 deficiency Other B-complex deficiencies Iron deficiency anemia, unspecified History of small bowel obstruction Personal history of other diseases of digestive disease documented [facility] this [facility]* Diagnosis HTN complicating peripregnancy, antepartum, second trimester- Primary 26 weeks gestation of Anemia affecting fourth HTN, goal below 130/80 Crohn's disease of both small and large intestine with intestinal obstruction (CMS-HCC)- Primary documented [facility] this [facility]* Diagnosis HTN complicating peripregnancy, antepartum, second trimester- Primary 26 weeks gestation of Anemia affecting fourth HTN, goal below 130/80 S/P small bowel resection- Primary Other postprocedural status [facility] this [facility]* Diagnosis HTN complicating peripregnancy, antepartum, second trimester- Primary 26 weeks gestation of Anemia affecting fourth HTN, goal below 130/80 Other acute pulmonary embolism without acute cor pulmonale (CMS-HCC)- Primary Acute deep vein thrombosis (DVT) of distal end of right lower extremity (CMS-HCC) [facility] SystemEvaluation note* Diagnosis HTN complicating peripregnancy, antepartum, second trimester- Primary 26 weeks gestation of Anemia affecting fourth HTN, goal below 130/80 Other iron deficiency anemia- Primary [facility]* Diagnosis 6 weeks follow-up documented in this encounter [facility] HealthcareEvaluation note* Diagnosis HTN complicating peripregnancy, antepartum, second trimester- Primary 26 weeks gestation of Anemia affecting fourth HTN, goal below 130/80 Lumbar strain, initial encounter- Primary Acute midline low back pain without sciatica Other acute pulmonary embolism without acute cor pulmonale (CMS-HCC) Iron deficiency anemia, unspecified Iron malabsorption Other specified intestinal malabsorption Crohn's disease of both small and large intestine with intestinal obstruction (CMS-HCC) documented [facility] this 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 deficiency anemia, unspecified iron deficiency anemia type Iron malabsorption Other specified intestinal malabsorption documented [facility] this [facility]* Diagnosis HTN complicating peripregnancy, antepartum, second trimester- Primary 26 weeks gestation of Anemia affecting fourth HTN, goal below 130/80 Lumbar pain- Primary Lumbago documented [facility] this [facility]* Diagnosis HTN complicating peripregnancy, antepartum, second trimester- Primary 26 weeks gestation of Anemia affecting fourth HTN, goal below 130/80 Crohn's disease of both small and large intestine with intestinal obstruction (CMS-HCC)- Primary Lumbar pain Lumbago documented in this [facility]* Diagnosis HTN complicating peripregnancy, antepartum, second trimester- Primary 26 weeks gestation of Anemia affecting fourth HTN, goal below 130/80 History of epidural anesthesia- Primary Acute midline low back pain without sciatica Lumbar pain Lumbago documented in this 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 Other specified intestinal malabsorption Iron deficiency anemia, unspecified Lumbar pain Lumbago [facility] Diagnosis HTN complicating peripregnancy, antepartum, second trimester- Primary 26 weeks gestation of Anemia affecting fourth HTN, goal below 130/80 Iron malabsorption- Primary Other specified intestinal malabsorption Iron deficiency anemia due to chronic blood loss Iron deficiency anemia secondary to blood loss (chronic) Iron deficiency anemia, unspecified Lumbar pain Lumbago [facility]* Diagnosis HTN complicating peripregnancy, antepartum, second trimester- Primary 26 weeks gestation of Anemia affecting fourth HTN, goal below 130/80 Crohn's disease of both small and large intestine with intestinal obstruction ([facility]-H[facility])- Primary [facility]* Diagnosis Well woman exam with routine gynecological exam- Primary Routine gynecological examination documented in this encounter [facility] HealthcareInstructionsNot on filedocumented in this encounterPro[facility] SystemInstructionsNot on filedocumented in this encounterPro[facility] SystemInstructionsNot on filedocumented in this encounterProT[facility] SystemInstructionsNot on filedocumented in this encounterUniversity Hospitals [facility] System InstructionsNot on filedocumented in this encounterUniversity Hospitals [facility] System InstructionsNot on filedocumented in this encounterUniversity Hospitals [facility] System InstructionsNot on filedocumented in this encounterUniversity Hospitals [facility] System InstructionsNot on filedocumented in this encounterUniversity Hospitals [facility] Instructions* Attachments The following attachments cannot be sent through Care Everywhere. * Anxiety Discharge Instructions, Adult (Panamanian) documented in this encounter[facility] Health SystemInstructionsNot on file documented in this encounterProMount [facility] System[facility] Health SystemInstructionsNot on file documented in this encounterProMount [facility] Systemca Health SystemInstructionsNot on file documented in this encounterProMount Carmel [facility] Systemca Health SystemInstructions* Attachments The following attachments cannot be sent through Care Everywhere. * Depression (Panamanian) documented in this encounterProMount [facility] System[facility] Health SystemInstructionsNot on file documented in this encounterProT[facility] Health SystemInstructionsNot on file documented in this encounterProT[facility] Health SystemInstructionsNot on file documented in this encounterProSelect [facility] SystemInstructionsNot on file documented in this encounterProSelect [facility] SystemInstructionsNot on file documented in this encounterProSelect [facility] SystemInstructionsNot on file documented in this encounterProSelect [facility] SystemInstructionsNot on file documented in this encounterProSelect [facility] SystemInstructionsNot on file [facility] encounter[facility] SystemInst[facility]* Attachments The following attachments cannot be sent through Care Everywhere. * Pulmonary embolism (blood clot in the lung) (Panamanian) documented in this encounterProSelect [facility] SystemInstructionsNot on file documented in this encounterProSelect [facility] SystemInstructionsNot on file documented in [facility] encounter[facility] SystemInst[facility]* Attachments The following attachments cannot be sent through Care Everywhere. * Low back pain in adults (Panamanian) documented in this encounterProSelect [facility] SystemInstructionsNot on file documented in this encounterProT[facility] [employer] SystemInstructionsNot on file documented in this encounterProSelect [facility] SystemInstructionsNot on file documented in this encounterSt. [facility] SystemReason for visit Narrative* Consultation (Routine) - Pending Review Specialty Diagnoses / Procedures Referred By Carroll juan Referred To Contact BLOOD MANAGEMENT Diagnoses Iron deficiency anemia, unspecified iron deficiency anemia type Sharda Montiel MD [address] [place] [address], [place] [address] Phone: tel: fax: [facility] Phone: tel: fax: Referral ID Status Reason Start Date Expiration Date V isits Requested Visits Authorized [id number] Pending Review 07/08/2024 07/08/[address] [facility] Summary Purpose Family History No Family History Records FoundNo Family History Records FoundNo Family History Records FoundNo Family History Records FoundNo Family History Records FoundNo Family History Records FoundNo Family History Records Found Advance Directives Date Activated Date Inactivated Comments 05/30/2024 7:30 PM 06/10/2024 7:43 PM Date Activated Date Inactivated Comments 07/03/2019 3:39 PM 07/03/2019 7:07 PM Date Activated Date Inactivated Comments 04/02/2018 11:45 AM 04/10/2018 4:06 PM Date Activated Date Inactivated Comments 10/17/2017 8:36 PM 10/22/2017 7:23 PM Date [...] Comments 10/17/2017 8:36 PM 10/22/2017 7:23 PM Date Activated Date Inactivated Comments 05/30/2024 7:30 PM Documents on File Type Date Recorded Patient 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 Durable Power of Mold Cutting Machine Operator 06/17/2024 5:06 PM Power of Mold Cutting Machine Operator 06/17/2024 Advance Directive 06/17/2024 5:03 PM Nick Harper Pow er of Mold Cutting Machine Operator 06/17/2024 Durable Power of Mold Cutting Machine Operator 06/17/2024 4:27 PM [facility] Pow er of Mold Cutting Machine Operator Date Activated Date Inactivated Comments 06/16/2024 11:28 PM 06/18/2024 7:53 PM Date Activated Date Inactivated Comments 05/30/2024 7:30 PM 06/10/2024 7:43 PM Date Activated Date Inactivated Comments 07/03/2019 3:39 PM 07/03/2019 7:07 PM Date Activated Date Inactivated Comments 04/02/2018 11:45 AM 04/10/2018 4:06 PM Date Activated Date Inactivated Comments 10/17/2017 8:36 PM 10/22/2017 7:23 PM Healthcare Agents on File Name Relationship Healthcare Agent [facility] p Communication Nick Harper Significant Other Health Care Agent Documents on File Type Date Recorded Patient 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 Durable Power of Mold Cutting Machine Operator 06/24/2024 7:04 AM Durable Power of Mold Cutting Machine Operator 06/17/2024 5:06 PM Power of Mold Cutting Machine Operator 06/17/2024 Advance Directive 06/17/2024 5:03 PM Nick Harper Pow er of Mold Cutting Machine Operator 06/17/2024 Durable Power of Mold Cutting Machine Operator 06/17/2024 4:27 PM [facility] Pow er of Mold Cutting Machine Operator Healthcare Agents on File Name Relationship Healthcare Agent Relationshi p Communication Nick Harper Significant Other Health Care Agent Healthcare Agents on File Name Relationship Healthcare Agent Relationshi p Communication Nick Harper Significant Other Health Care Agent Healthcare Agents on File Name Relationship Healthcare Agent Relationshi p Communication Nick Harper Significant Other Health Care Agent Healthcare Agents on File Name Relationship Healthcare Agent Relationshi p Communication Nick Harper Significant Other Health Care Agent Healthcare Agents on File Name Relationship Healthcare Agent Relationshi p Communication Nick Harper Significant Other Health Care Agent Healthcare Agents on File Name Relationship Healthcare Agent Relationshi p Communication Nick Harper Significant Other Health Care Agent Documents on File Type Date Recorded Patient 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 Durable Power of Mold Cutting Machine Operator 06/24/2024 7:04 AM Durable Power of Mold Cutting Machine Operator 06/17/2024 5:06 PM Power of Mold Cutting Machine Operator 06/17/2024 Advance Directive 06/17/2024 5:03 PM Nick Harper Pow er of Mold Cutting Machine Operator 06/17/2024 Durable Power of Mold Cutting Machine Operator 06/17/2024 4:27 PM [facility] Pow er of Mold Cutting Machine Operator Date Activated Date Inactivated Comments 06/16/2024 11:28 PM 06/18/2024 7:53 PM Date Activated Date Inactivated Comments 05/30/2024 7:30 PM 06/10/2024 7:43 PM Date Activated Date Inactivated Comments 07/03/2019 3:39 PM 07/03/2019 7:07 PM Date Activated Date Inactivated Comments 04/02/2018 11:45 AM 04/10/2018 4:06 PM Date Activated Date Inactivated Comments 10/17/2017 8:36 PM 10/22/2017 7:23 PM Healthcare Agents on File Name Relationship Healthcare Agent Relationshi p Communication Nick Harper Significant Other Health Care Agent Healthcare Agents on File Name Relationship Healthcare Agent Relationshi p Communication Nick Harper Significant Other Health Care Agent Healthcare Agents on File Name Relationship Healthcare Agent Relationshi p Communication Nick Harper Significant Other Health Care Agent Healthcare Agents on File Name Relationship Healthcare Agent Relationshi p Communication Nick Harper Significant Other Health Care Agent Healthcare Agents on File Name Relationship Healthcare Agent Relationshi p Communication Nick Harper Significant Other Health Care Agent Healthcare Agents on File Name Relationship Healthcare Agent Relationshi p Communication Nick Harper Significant Other Health Care Agent Healthcare Agents on File Name Relationship Healthcare Agent Relationshi p Communication Nick Harper Significant Other Health Care Agent Additional Source Comments INFORMATION SOURCE (unrecogn ized section and content) DATE CREATED AUTHOR 08/05/2017 [facility] DATE CREATED AUTHOR AUTHOR'S ORGANIZ ATION 06/26/[address] [facility] DATE CREATED AUTHOR AUTHOR'S ORGANIZ ATION 07/11/2024 [facility] DATE CREATED AUTHOR AUTHOR'S ORGANIZ ATION 07/16/2024 [facility] DATE CREATED AUTHOR AUTHOR'S ORGANIZ ATION 08/14/2024 [facility] DATE CREATED AUTHOR AUTHOR'S ORGANIZ ATION 09/18/2024 [facility] DATE CREATED AUTHOR AUTHOR'S ORGANIZ ATION 09/24/2024 [facility] Reason for Visit (unrecogniz ed section and content) Reason Comments Amenorrhea Reason Comments Routine Visit Reason Comments Outpatient Infusion Crohn's Disease Avsola Specialty Diagnoses / Procedures Referred By Carroll juan Referred To Contact Gastroenterology Diagnoses Crohn's disease of both small and large intestine with intestinal obstruction Asola 5mg/kg (400mg) every 6 weeks/ Auth'd ..24 - 01.18./ 9 visits/ K50.812 Dr. Almadani NO ACCELERATED INFUSION Procedures INJECTION, INFLIXIMAB-AXXQ, BIOSIMILAR, (AVSOLA), 10 MG INFUSION Hilary Aviles APRN-URGENT CARE PHYSICIAN ASSISTANT [address], [place] [address] Phone: tel: fax: [facility] [address] [place] [address] [place] [phone] Phone: tel: fax: Referral ID Status Reason Start Date Expiration Date V isits Requested Visits Authorized [id number] Authorized 01/20/2024 01/18/2025 9 9 Reason Comments Outpatient Infusion Injectafer Specialty Diagnoses / Procedures Referred By Contac t Referred To Contact Diagnoses Iron deficiency anemia due to chronic blood loss Iron deficiency anemia, unspecified Iron malabsorption Procedures LA INJ FERRIC [place]BO[place] 1[place] [address] [place] [address] [address] [place] [id number] [facility] [address] [place] [phone] Referral ID Status Reason Start Date Expiration Date V isits Requested Visits Authorized [id number] Authorized 01/24/2023 07/23/2023 2 2 Reason Comments Outpatient Infusion Inflectra Specialty Diagnoses / Procedures Referred By Contac t Referred To Contact Gastroenterology Diagnoses Crohn's disease of both small and large intestine with intestinal obstruction Inflectra 5mg/kg every 6 weeks, Auth'd for 9 visits 6.16.23-6.15.24, SA/Crohns Procedures LA INFLIXIMAB INJECTION INFUSION Hilary Aviles APRN-URGENT CARE PHYSICIAN ASSISTANT [address] [place] [address] [facility] [address] [place] [phone] Referral ID Status Reason Start Date Expiration Date V isits Requested Visits Authorized [id number] Pending Review 07/26/2022 07/26/2023 9 9 Reason Comments Asthma Reason Comments Outpatient Infusion inflectra Specialty Diagnoses / Procedures Referred By Contac t Referred To Contact Gastroenterology Diagnoses Crohn's disease of both small and large intestine with intestinal obstruction Procedures LA INFLIXIMAB INJECTION Referral ID Status Reason Start Date Expiration Date V isits Requested Visits Authorized [id number] Authorized 04/01/2023 04/01/2024 9 9 Reason Comments Mental Health Problem Reason Comments FMLA Reason Comments Anxiety Depression Reason Comments Follow-up Patient is here for a follow up and denies any issues. Reason Comments Follow-up Specialty Diagnoses / Procedures Referred By Contac t Referred To Contact Gastroenterology Diagnoses Crohn's disease of both small and large intestine with intestinal obstruction Procedures LA INFLIXIMAB INJECTION Reason Comments Outpatient Infusion Specialty Diagnoses / Procedures Referred By Contac t Referred To Contact Gastroenterology Diagnoses Crohn's disease of both small and large intestine with intestinal obstruction Asola 5mg/kg (400mg) every 6 weeks/ Auth'd 01.20.24 - 01.18.25/ visits/ K50.812 Dr. Montiel NO ACCELERATED INFUSION Procedures INJECTION, INFLIXIMAB-AXXQ, BIOSIMILAR, (AVSOLA), 10 MG INFUSION Hilary Aviles, PROJECT MANAGER/TEAM COACH-URGENT CARE PHYSICIAN ASSISTANT [address] [facility] [address], [place] [address] Phone: tel: fax: [facility] [address] [phone] Phone: tel: fax: Reason Comments Er Follow-up Specialty Diagnoses / Procedures Referred By Contac t Referred To Contact Diagnoses Crohn's disease of both small and large intestine with intestinal obstruction ([facility]) Sharda Montiel MD [address] [facility], [address] [place] [address] Phone: tel: fax: [facility] [address] [phone] Phone: tel: fax: Referral ID Status Reason Start Date Expiration Date V isits Requested Visits Authorized [id number] Pending Review 01/21/2024 01/20/2025 1 1 Reason Comments Care Reason Comments Post-op Staple removal, LAPA ROTOMY EXPLORATORY, SMALL BOWEL RESECTION AND ANASTAMOSIS, AND LYSIS OF ADHESIONS. 05/31/24 Reason Comments Abdominal Pain Patient here for a h ospital follow up. Patient had a bowel obstruction, followed with a . Patient states she has no current pain away. Specialty Diagnoses / Procedures Referred By Carroll juan Referred To Contact Gastroenterology Diagnoses Crohn's disease of both small and large intestine with intestinal obstruction Asola 5mg/kg (400mg) every 6 weeks/ Auth'd 01.20.24 - 01.18.25 visits/ K50.812 Dr. Montiel NO ACCELERATED INFUSION Procedures INJECTION, INFLIXIMAB-AXXQ, BIOSIMILAR, (AVSOLA), 10 MG INFUSION Hilary Aviles, PROJECT MANAGER/TEAM COACH-URGENT CARE PHYSICIAN ASSISTANT [address] [facility] [place] [address] Phone: tel: fax: Reason Comments Post-op Small bowel resectio n 05/31/2024 Reason Comments hospital discharge PE, rle dvt after ex lap for SBO 05/31 and 06/03.(please make next appt in [place]) Reason Comments 6wks PP Reason Comments Back Pain Reason Comments Paperwork Reason Comments Outpatient Infusion Infed Specialty Diagnoses / Procedures Referred By Carroll juan Referred To Contact Diagnoses Iron deficiency anemia due to chronic blood loss Iron deficiency anemia, unspecified Iron malabsorption Procedures LA INJ IRON DEXTRAN Jayjay Clayton, PROJECT MANAGER/TEAM COACH-URGENT CARE PHYSICIAN ASSISTANT [address] [place] [address] Phone: tel: fax: Jayjay Clayton PROJECT MANAGER/TEAM COACH-URGENT CARE PHYSICIAN ASSISTANT [address] [place] [address] Phone: tel: fax: Referral ID Status Reason Start Date Expiration Date Visits Re quested Visits Authorized [id number] Closed 08/12/2024 08/12/2025 1 1 Care Teams (unrecognized sec tion and content) Licensed Funeral Director Relationship Specialty Start Date End Date Hilary Aviles MD [address] [place] [address] [place] [address] Referring Physician Nurse Practitioner 10/08/22 Licensed Funeral Director Relationship Specialty Start Date End Date Hilary Aviles APRN-URGENT CARE PHYSICIAN ASSISTANT [address], [facility] [place] [address] PCP - General Family Medicine 01/03/24 Licensed Funeral Director Relationship Specialty Start Date End Date Hilary Aviles MD [address] [place] [address] [place] [address] Referring Physician Nurse Practitioner 10/08/22 Licensed Funeral Director Relationship Specialty Start Date End Date Hilary Aviles MD [address] [place] [address] [place] [address] Referring Physician Nurse Practitioner 10/08/22 Licensed Funeral Director Relationship Specialty Start Date End Date Hilary Aviles MD [address] [place] [address] [place] [address] Referring Physician Nurse Practitioner 10/08/22 Licensed Funeral Director Relationship Specialty Start Date End Date Hilary Aviles APRN-URGENT CARE PHYSICIAN ASSISTANT [address], [place] [address] PCP - General Family Medicine 01/03/24 Licensed Funeral Director Relationship Specialty Start Date End Date Hilary Aviles MD [address] [place] [address] Referring Physician Nurse Practitioner 10/08/22 Licensed Funeral Director Relationship Specialty Start Date End Date Hilary Aviles MD [address] [place] [address] Referring Physician Nurse Practitioner 10/08/22 Licensed Funeral Director Relationship Specialty Start Date End Date Hilary Aviles MD [address] [place] [address] Referring Physician Nurse Practitioner 10/08/22 Licensed Funeral Director Relationship Specialty Start Date End Date Hilary Aviles APRN-CNP [address], [place] [address] PCP - General Family Medicine 12/26/22 Licensed Funeral Director Relationship Specialty Start Date End Date Hilary Aviles APRN-URGENT CARE PHYSICIAN ASSISTANT [address], [place] [address] PCP - General Family Medicine 12/26/22 Licensed Funeral Director Relationship Specialty Start Date End Date Hilary Aviles APRN-CNP [address], [place] [address] PCP - General Family Medicine 12/26/22 Licensed Funeral Director Relationship Specialty Start Date End Date Hilary Aviles APRN-CNP [address], [place] [address] PCP - General Family Medicine 12/26/22 Licensed Funeral Director Relationship Specialty Start Date End Date Hilary Aviles APRN-CNP [address], [place] [address] PCP - General Family Medicine 12/26/22 Licensed Funeral Director Relationship Specialty Start Date End Date Hilary Aviles [facility] [address], [place] [address] PCP - General Family Medicine 12/26/22 Licensed Funeral Director Relationship Specialty Start Date End Date Hilary Aviles PROJECT MANAGER/[facility] [address], [place] [address] PCP - General Family Medicine 12/26/22 Licensed Funeral Director Relationship Specialty Start Date End Date Hilary Aviles [facility] [address], [place] [address] PCP - General Family Medicine 12/26/22 Licensed Funeral Director Relationship Specialty Start Date End Date Hilary Aviles [facility] [address], [place] [address] PCP - General Family Medicine 12/26/22 Licensed Funeral Director Relationship Specialty Start Date End Date Hilary Aviles [facility] [address], [place] [address] PCP - General Family Medicine 12/26/22 Licensed Funeral Director Relationship Specialty Start Date End Date Hilary Aviles [facility] [address], [place] [address] PCP - General Family Medicine 12/26/22 Licensed Funeral Director Relationship Specialty Start Date End Date Hilary Aviles APRN-CNP [address], [place] [address] PCP - General Family Medicine 12/26/22 Licensed Funeral Director Relationship Specialty Start Date End Date Hilary Aviles APRN-CNP [address], [place] [address] PCP - General Family Medicine 12/26/22 Licensed Funeral Director Relationship Specialty Start Date End Date Hilary Aviles APRN-CNP [address], [place] [address] PCP - General Family Medicine 12/26/22 Licensed Funeral Director Relationship Specialty Start Date End Date Hilary Aviles APRN-CNP [address], [place] [address] PCP - General Family Medicine 01/03/24 Licensed Funeral Director Relationship Specialty Start Date End Date Hilary Aviles APRN-CNP [address], Matthew [place] [address] PCP - General Family Medicine 01/03/24 Licensed Funeral Director Relationship Specialty Start Date End Date Hilary Aviles MD [address] [place] [address] Referring Physician Nurse Practitioner 10/08/22 Licensed Funeral Director Relationship Specialty Start Date End Date Hilary Aviles APRN-CNP [address], [place] [address] PCP - General Family Medicine 01/03/24 Licensed Funeral Director Relationship Specialty Start Date End Date Hilary Aviles [facility] [address], Matthew Russ [place] [address] PCP - General Family Medicine 01/03/24 Licensed Funeral Director Relationship Specialty Start Date End Date Hilary Aviles [facility] [address], Matthew Russ [facility] [address] PCP - General Family Medicine 01/03/24 Licensed Funeral Director Relationship Specialty Start Date End Date Hilary Aviles MD [address] [place] [address] [place] [address] Referring Physician Nurse Practitioner 10/08/22 Licensed Funeral Director Relationship Specialty Start Date End Date Hilary Aviles [facility] [address], [place] [address] PCP - General Family Medicine 01/03/24 Licensed Funeral Director Relationship Specialty Start Date End Date Hilary Aviles MD [address] [place] [address] [place] [address] Referring Physician Nurse Practitioner 10/08/22 Licensed Funeral Director Relationship Specialty Start Date End Date Hilary Aviles MD [address] [place] [address] [place] [address] Referring Physician Nurse Practitioner 10/08/22 Licensed Funeral Director Relationship Specialty Start Date End Date [facility] [address], [place] [address] PCP - General Family Medicine 01/03/24 Licensed Funeral Director Relationship Specialty Start Date End Date Hil[facility] [address], [place] [address] PCP - General Family Medicine 01/03/24 Licensed Funeral Director Relationship Specialty Start Date End Date Hil[facility] [address], [place] [address] PCP - General Family Medicine 01/03/24 Licensed Funeral Director Relationship Specialty Start Date End Date Hilary [facility]iles [facility] [address], [place] [address] PCP - General Family Medicine 01/03/24 Licensed Funeral Director Relationship Specialty Start Date End Date Hilary Aviles [facility] [address], [place] [address] PCP - General Family Medicine 01/03/24 Licensed Funeral Director Relationship Specialty Start Date End Date Hilary [facility]iles [facility] [address], [place] [address] PCP - General Family Medicine 01/03/24 Licensed Funeral Director Relationship Specialty Start Date End Date Hilary [facility]iles [facility] [address], [place] [address] PCP - General Family Medicine 01/03/24 Licensed Funeral Director Relationship Specialty Start Date End Date Hilary [facility]iles [facility] [address], [place] [address] PCP - General Family Medicine 01/03/24 Licensed Funeral Director Relationship Specialty Start Date End Date Hilary Aviles MD [address] [place] [address] [place] [address] Referring Physician Nurse Practitioner 10/08/22 Licensed Funeral Director Relationship Specialty Start Date End Date Hil[facility] [address], [place] [address] PCP - General Family Medicine 01/03/24 Licensed Funeral Director Relationship Specialty Start Date End Date Hilary Aviles [facility] [address], [place] [address] PCP - General Family Medicine 01/03/24 Licensed Funeral Director Relationship Specialty Start Date End Date Hilary Aviles [facility] [address], [place] [address] PCP - General Family Medicine 01/03/24 Licensed Funeral Director Relationship Specialty Start Date End Date Hilary Aviles [facility] [address], [place] [address] PCP - General Family Medicine 01/03/24 Licensed Funeral Director Relationship Specialty Start Date End Date Hilary Aviles [facility] [address], Matthew Russ [facility] [address] PCP - General Family Medicine 01/03/24 Licensed Funeral Director Relationship Specialty Start Date End Date Hilary Aviles [facility] [address], [place] [address] PCP - General Family Medicine 01/03/24 Licensed Funeral Director Relationship Specialty Start Date End Date Hilary Aviles [facility] [address], [place] [address] PCP - General Family Medicine 01/03/24 Licensed Funeral Director Relationship Specialty Start Date End Date Hilary Aviles [facility] [address], [facility] [place] [address] PCP - General Family Medicine 01/03/24 Licensed Funeral Director Relationship Specialty Start Date End Date Hilary Aviles [facility] [address], [facility] [place] [address] PCP - General Family Medicine 01/03/24 Licensed Funeral Director Relationship Specialty Start Date End Date Hilary Aviles MD [address] [facility] [place] [address] Referring Physician Nurse Practitioner 10/08/22 FOR RECORDS [...] BE BASED ON THE PRIMARY CLINICAL RECORDS. [employer] [facility]. provides no warranty or guarantee of the accuracy or completeness of information in this document.
[2024-10-22 21:08] LABS: Age Gdln ACOG Testing Note (.); HPV Genotype 18,45 Negative (Negative); IGP, Aptima HPV, rfx 16/18,45 Note (.)
== END 2024-10-18 21:02 | disposition home or self-care (01) ==
LOC: LAB 21:01
PROVIDERS: PCP Nurse Practitioner; Visit Provider Nurse Practitioner Family
DX: Z01.419 Encounter for gynecological examination (general) (routine) without abnormal findings (principal)
CPT/HCPCS: 87624; 87625; 88175

== ENCOUNTER 2024-12-31 09:02 | Outpatient (OUT) | payer OTHER, MEDICAID, SELFPAY ==
--- OUTSIDE RECORDS SUMMARY | 2024-12-31 09:04 | XMS_ITS | Encounter Summary ---
Author Organization [employer] [facility] tem Address [facility] [id number] [address] [place] [address] Care Team Providers Care Physical Therapy Aide Name Role Phone Hilary Aviles Primary Care [facility] Reason for Referral * Consultation (Routine) - Pending ReviewSpecialtyDiagnoses / ProceduresReferred By ContactReferred To ContactObstetrics & Gynecology / Obstetrics and Gynecology Diagnoses Iron deficiency anemia due to chronic blood loss Abnormal uterine bleeding (AUB) Marlen Goldman APRN-CNP [address] [place] [address] Phone: tel: fax: [facility] [address] [place] [address] Phone: tel: fax: Referral IDStatusReasonStart DateExpiration DateVisits RequestedVisits [id number] Review Specialty Services Required * Medication Prior Authorization - ClosedSpecialtyDiagnoses / ProceduresReferred By ContactReferred To Contact Diagnoses Iron deficiency anemia, unspecified iron deficiency anemia type Marlen Goldman APRN-CNP [address] [place] [address] Phone: tel: fax: Referral IDStatRejamisonStart DateExpiration DateVisits RequestedVisits [id number] Encounter Details DateTypeDepartmentCare Team (Latest Contact Info)Qjdkcibpcxf01/12/2025Results Follow-Up [facility] Benign Hematology [address] [place] [phone] Marlen Goldman APRN-CNP [address] [place] [address] Vitamin B12, Iron and TIBC, Folate, Additional followed-up results: 2 Social History Tobacco UseTypesPacks/DayYears UsedDateSmoking Tobacco: NeverSmokeless Tobacco: NeverAlcohol UseStandard Drinks/WeekCommentsNo0 (1 standard drink = 0.6 oz pure alcohol)[facility] UtilitiesAnswerDate RecordedIn the past 12 months has the electric, gas, oil, or water company threatened to shut off services in your home?No 06/17/2024UDIT-CAnswerDate RecordedQ1: How often do you have a drink containing alcohol?Never06/17/2024Q2: How many drinks containing alcohol do you have on a typical day when you are drinking?Patient does not drink06/17/2024Q3: How often do you have six or more drinks on one occasion?Never06/17/2024PHQ-2AnswerDate RecordedTotal Nijcw510PRAPARE - TransportationAnswerDate RecordedIn the past 12 months, has lack of transportation kept you from medical appointments or from getting medications?No06/17/2024In the past 12 months, has lack of transportation kept you from meetings, work, or from getting things needed for daily living?No06/17/2024Edinburgh Depression ScaleAnswerDate Recorded [place] Depression Scale Tfiiq046The thought of harming myself has occurred to me.Never06/21/2024Housing InstabilityAnswerDate Recorded Are you worried or concerned that in the next two months you may not have stable housing that you own, rent or stay in as a part of a household?No06/21/2024 ChildcareAnswerDate RecordedDo problems getting assistant child care teacher make it difficult for you to work or study?No06/21/2024EmploymentAnswerDate RecordedEmploymentUnknown 07/10/2018Hunger ScreeningAnswerDate RecordedWithin the past 12 months we worried whether our food would run out before we got money to buy more.Never True11/12/2024Within the past 12 months the food we bought just didn't last and we didn't have money to get more.Never True11/12/2024Purpose - LifeAnswerDate RecordedPurpose and direction in jvxtKzkqirt45/19/2021CommentsNoSex and Gender InformationValueDate RecordedSex Assigned at BirthNot on fileLegal Sex Qfywov3809/13/2014 9:19 PM EDTGender IdentityNot on fileSexual OrientationNot on filedocumented as of this encounter Progress Notes * TERA Lopez - 12/22/2024 1:55 PM EST Reviewed. Lab recheck in 8 weeks - patient to continue all supplements - will order iv iron - she may need to notify GI of her severe iron deficiency.. TERA Lopez 12/22/24 1417 * TERA Lopez - 12/22/2024 1:55 PM EST Reviewed. Iv iron ordered TERA Lopez 12/24/24 1141 documented in this encounter Miscellaneous Notes * Telephone Encounter - TERA Lopez - 12/22/2024 1:55 PM EST Patients last iv iron infusion was 08/25- now currently still with severe anemia- will order infed 2,000 mg does this time. Pt needs to discuss with GI and SIGNAL HELPER options regarding her heavy bleeding. She can also follow up with vascular to see if she can stop eliquis since their note says treatment for 6 months to 1 years- she is past 6 months documented in this encounter Plan of Treatment DateTypeDepartmentCare Team (Latest Contact Info)Rbzunysfoir72/21/2025 1:30 PM ESTOffice Visit [facility], A Department of [address] [phone] [place] [address] [place] [address] 01/03/2025 10:00 AM ESTInfusion Ally Kaiden [facility] - Medical Oncology [address] [place] [phone] 01/08/2025 9:40 AM ESTLab [facility] [address] [place] [address] 01/08/2025 10:00 AM ESTLab [facility] Lab [address] [place] [address] 01/10/2025 9:00 AM ESTOffice Visit Ally Richey [facility] - Medical Oncology [address] [place] [phone] Ree Moreno APRN-CNP [address] [facility], [address] [place] [address] 01/11/2025 1:45 PM ESTOffice Visit [facility] [address] [place] [address] [address] [place] [phone] Cee Sagastume, AIR POLLUTION ANALYST-NO BAKE MOLDER [address] [facility] [place] [address] 01/17/2025 1:45 PM ESTOffice Visit [facility] [address] [place] [phone] Teresa Jamison, AIR POLLUTION ANALYST-CNM [address] [place] [address] 01/26/2025 1:00 PM ESTInfusion [facility], A Department of [place] [address] [facility] [address] [place] [phone] 03/09/2025 1:00 PM ESTInfusion [facility], A Department of [place] [address] [facility] [address] [place] [phone] NameTypePriorityAssociated DiagnosesOrder ScheduleCBC auto differentialLab Routine Iron deficiency anemia, unspecified 4 weeks for 6 Occurrences starting 12/22/2024 until 12/22/2025FerritinLabRoutine Iron deficiency anemia, unspecified 4 weeks for 6 Occurrences starting 12/22/2024 until 12/22/2025Iron and TIBCLab Routine Iron deficiency anemia, unspecified 4 weeks for 6 Occurrences starting 12/22/2024 until 12/22/2025NameTypePriority Associated DiagnosesOrder SchedulePro[facility]ica [facility] [place] - ConsultOutpatient ReferralRoutine Iron deficiency anemia due to chronic blood loss Abnormal uterine bleeding (AUB) 1 Occurrences starting 12/22/2024 until 12/22/2025documented as of this encounter Goals GoalPatient Goal TypeAssociated ProblemsRecent ProgressPatient-Stated?Author <enter goal here> Nikky Rosario LSW Note: Evaluation of progress towards goal: pt would like to return home with family support vs going to [facility] while her baby remains in NICU documented as of this encounter Visit Diagnoses Diagnosis 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 Other specified intestinal malabsorption Iron deficiency anemia, unspecified iron deficiency anemia type Abnormal uterine bleeding (AUB) documented in this encounter Additional Health Concerns AssessmentNoted TimePHQ-9 Depression Total Score: 8:26 AM EDT documented as of this encounter Care Teams Team MemberRelationshipSpecialtyStart DateEnd Date Hilary Aviles, AIR POLLUTION ANALYST-NO BAKE MOLDER [address], [place] [address] PCP - GeneralFamily Hpwcrmyf59/23/24documented as of this encounter
--- OUTSIDE RECORDS SUMMARY | 2024-12-31 09:04 | XMS_ITS | Clinical Summary ---
Author Organization [facility] Address [address] [place] [address] Care Team Providers Care Materials Engineering Technician Name Role Phone Harris Cerda MD Primary Care Provider [phone] Allergies No known active allergies Medications MedicationSigDispense QuantityRefillsLast FilledStart DateEnd DateStatus sertraline (ZOLOFT) 50 mg tablet Take 50 mg by mouth once daily.Active cyclobenzaprine (FLEXERIL) 10 mg tablet Take 10 mg by mouth three times daily as needed.Active traZODone (DESYREL) 50 mg tablet Take 50 mg by mouth as needed.Active buPROPion XL (WELLBUTRIN XL) 150 mg 24 hr tablet 07/26/2016Active hydrOXYzine HCl (ATARAX) 50 mg tablet 07/29/2016Active Active Problems ProblemNoted DateDiagnosed MzwjNydlhy70/18/2017 Social History Tobacco UseTypesPacks/DayYears UsedDateSmoking Tobacco: NeverSmokeless Tobacco: NeverAlcohol UseStandard Drinks/WeekCommentsNo0 (1 standard drink = 0.6 oz pure alcohol)CommentsNoSex and Gender InformationValueDate RecordedSex Assigned at BirthNot on fileLegal WelSyibys93/10/2017 3:38 PM EDTGender Identity Not on fileSexual OrientationNot on file Last Filed Vital Signs Vital SignReadingTime TakenCommentsBlood Tjlkukjg63/6410 1:30 PM EDT Dunzl7081 1:30 PM PYDCxxzycwohuz90.2 ??C (98.9 ??F)12/03/2016 1:30 PM EDTRespiratory Mmur8310 1:30 PM EDTOxygen Xnjfpoqmge55%12/03/2016 1:30 PM EDTInhaled Oxygen Concentration--Jwtvez02.6 kg (131 lb 8 oz)11/19/2016 11:13 AM EDTwith steel toed shoes ccJoolst605.2 cm (5' 4.25 )11/19/2016 11:13 AM EDT Body Mass Index22. 11:13 AM EDT Plan of Treatment Health MaintenanceDue DateLast DoneCommentsAnxiety Jwdfuwyyp00/01/2008Depression Lyfzypcnx98/01/2008HIV Aiprwfzkl91/01/2008Hepatitis C Jdcqrshku13/01/2008 DTaP,Tdap,Td Vaccine (1 - Tdap)2008Hepatitis B Vaccine (1 of 3 - 19+ 3- dose series)2008Cervical Cancer Oydghjaqp59/01/2011HPV Vaccine (1 - 3-dose SCDM series)2016Covid-19 Vaccine (1 - 2024- season)2024Influenza Vaccine (#1)2024 Care Teams Team MemberRelationshipSpecialtyStart DateEnd Date Imm, Harris García MD PCP - GeneralFamily Medicine05/20/16
--- OUTSIDE RECORDS SUMMARY | 2024-12-31 09:04 | XMS_ITS | Encounter Summary ---
Author Organization [email or web address] [facility] tem Address [facility] [id number] [address] [place] [address] Care Team Providers Care Software Quality Manager Name Role Phone Hilary Aviles APRN-TOWER TECHNICIAN Primary Care Provi [facility] Encounter Details DateTypeDepartmentCare Team (Latest Contact Info)Tjowhpclmor09/11/2025Travel Social History Tobacco UseTypesPacks/DayYears UsedDateSmoking Tobacco: NeverSmokeless Tobacco: NeverAlcohol UseStandard Drinks/WeekCommentsNo0 (1 standard drink = 0.6 oz pure alcohol)[facility] UtilitiesAnswerDate RecordedIn the past 12 months has [...] or more drinks on one occasion?Never06/17/2024PHQ-2AnswerDate RecordedTotal Ecobw205PRAPARE - TransportationAnswerDate RecordedIn the past 12 months, has lack of transportation kept you from medical appointments or from getting medications?No06/17/2024In the past 12 months, has lack of transportation kept you from meetings, work, or from getting things needed for daily living?No06/17/2024Edinburgh Depression ScaleAnswerDate Recorded [place] Depression Scale Lrkun280The thought of harming myself has occurred to me.Never06/21/2024Housing InstabilityAnswerDate Recorded Are you worried or concerned that in the next two months you may not have stable housing that you own, rent or stay in as a part of a household?No06/21/2024 ChildcareAnswerDate RecordedDo problems getting child psychologist make it difficult for you to work or study?No06/21/2024EmploymentAnswerDate RecordedEmploymentUnknown 07/10/2018Hunger ScreeningAnswerDate RecordedWithin the past 12 months we worried whether our food would run out before we got money to buy more.Never True11/12/2024Within the past 12 months the food we bought just didn't last and we didn't have money to get more.Never True11/12/2024Purpose - LifeAnswerDate RecordedPurpose and direction in ujweRpxivsi06/19/2021CommentsNoSex and Gender InformationValueDate RecordedSex Assigned at BirthNot on fileLegal Sex Anmjeq0609/13/2014 9:19 PM EDTGender IdentityNot on fileSexual OrientationNot on filedocumented as of this encounter Plan of Treatment DateTypeDepartmentCare Team (Latest Contact Info)Qnqctvgiulj12/21/2025 1:30 PM ESTOffice Visit [facility], [facility] Department of [facility] [address] [phone] Josephine Turner PA [address] [address] 01/03/2025 10:00 AM ESTInfusion [facility] - Medical Oncology [address] [place] [address] 01/08/2025 9:40 AM ESTLab [facility] - Lab [address] [place] [address] 01/08/2025 10:00 AM ESTLab [facility] - Lab [address] [place] [place] [address] 01/10/2025 9:00 AM ESTOffice Visit [facility] [address] [facility] [place] [address] Ree Moreno, COLLECTION DEVELOPMENT LIBRARIAN-TOWER TECHNICIAN [address] [facility] [place] [address] 01/11/2025 1:45 PM ESTOffice Visit [facility] Physicians Vascular Surgery [facility] [address] [place] [address] Cee Sagastume, COLLECTION DEVELOPMENT LIBRARIAN-TOWER TECHNICIAN [address] [facility] [place] [address] 01/17/2025 1:45 PM ESTOffice Visit [facility] [address] [place] [phone] Teresa Jamison, COLLECTION DEVELOPMENT LIBRARIAN-CN [address] [facility] [address] [place] [address] 01/26/2025 1:00 PM ESTInfusion [facility], A Department of [address] [place] [phone] 03/09/2025 1:00 PM ESTInfusion [facility], A Department of [address] [place] [phone] documented as of this encounter Goals GoalPatient Goal TypeAssociated ProblemsRecent ProgressPatient-Stated?Author <enter goal here> Nikky Rosario LSW Note: Evaluation of progress towards goal: pt would like to return home with family support [facility] documented as of this encounter Visit Diagnoses Not on filedocumented in this encounter Additional Health Concerns AssessmentNoted TimePHQ-9 Depression Total Score: 8:26 AM EDT documented as of this encounter Care Teams Team MemberRelationshipSpecialtyStart DateEnd Date Hilary Aviles, COLLECTION DEVELOPMENT LIBRARIAN-TOWER TECHNICIAN [address], [place] [address] PCP - GeneralFamily Mohyaxne96/23/24documented as of this encounter
--- OUTSIDE RECORDS SUMMARY | 2024-12-31 09:04 | XMS_ITS | Clinical Summary ---
Author Organization [employer] Address [id number] [place] [address] Care Team Providers Care Solar Designer Name Role Phone Hilary Aviles APRN-BEARING MAKER Primary Care Provi lazarus Allergies Active AllergyReactionsCriticalityNoted CdsjAexntgouYcabtrqdsyImrclhei59/30/2019 Pt reports this is not an allergy Medications MedicationSigDispense QuantityRefillsLast FilledStart DateEnd DateStatus apixaban (ELIQUIS) 5 mg tablet Indications:Other acute pulmonary embolism without acute cor pulmonale (CMS-HCC) ,Acute deep vein thrombosis (DVT) of distal end of right lower extremity (CMS-HCC)Take 1 tablet (5 mg total) by mouth in the morning and 1 tablet (5 mg total) before bedtime. 180 tablet 5Active Additional Information Patient not taking.Reported on 11/12/2024 cyclobenzaprine (FLEXERIL) 10 mg tablet Indications:Acute midline low back pain without sciaticaTake 1 tablet (10 mg total) by mouth every 8 (eight) hours as needed for muscle spasms. 30 tablet 5Active azaTHIOprine (IMURAN) 50 mg tablet Indications:Crohn's disease of both small and large intestine with intestinal obstruction (CMS-HCC)Take 4 tablets (200 mg total) by mouth in the morning. 120 tablet 5Active inFLIXimab-axxq (AVSOLA) 100 mg injection Indications:Crohn's diseaseInfuse 5 mg/kg into a venous catheter every 6 (six) weeks Indications: Crohn's disease.Active folic acid (FOLVITE) 1 mg tablet Indications:Iron deficiency anemia, unspecifiedTake 1 tablet (1 mg total) by mouth in the morning.5Active mupirocin (BACTROBAN) 2 % ointment Indications:Open wound of nasal cavity, initial encounterApply 1 Application topically 3 (three) times a day. 22 g 11/12/2024tive ferric maltol (ACCRUFER) 30 mg capsule Indications:Iron deficiency anemia, unspecified iron deficiency anemia typeTake 30 mg by mouth in the morning and 30 mg before bedtime. 60 capsule 5Active ferric maltol (ACCRUFER) 30 mg capsule Indications:Iron deficiency anemia, unspecified iron deficiency anemia typeTake 30 mg by mouth in the morning and 30 mg before bedtime. 60 capsule 5102/22/2024Discontinued(Reorder) Active Problems ProblemNoted DateDiagnosed DateHistory of epidural ypaorfvyok22/02/2025Acute midline low back pain without yfxakcap13/23/2025History of small bowel jtgjirnfjoa68/19/2025Pulmonary coevgehe31/07/2025urrent moderate episode of major depressive disorder without prior rtupsxd4109/03/2023Iron deficiency anemia, qoigxiirpvd99/19/2021Iron sjoopfyiqoxxj12/19/2021Vitamin B 12 deficiency 07/08/20197760Paamca38/22/2020Difficulty yxfikfwc31/04/2019Psoriasis of scalp 12/14/20184673Pngghwn77/04/2019Pain in both feet12/14/2018Reactive depression 11/09/2018Microcytic pltgqw7607/17/2018Iron deficiency anemia due to chronic blood loss07/17/2018Crohn's disease of both small and large intestine with intestinal /22/2019Anemia affecting fourth xblynqqll97/05/2018 Assessment & Plan (05/06/2024 1:03 PM EDT): Patient with history of anemia and iron malabsorption due to chronic inflammatory bowel disease. Hemoglobin on 05/04 was 9.4 begin iron supplement that she had been prescribed. Advised patient that some of her symptoms of shortness of breath and tachycardia could be a result of low hemoglobin levels during Resolved Problems ProblemNoted DateDiagnosed DateResolved DateLumbar strain, initial encounter /bdominal pain/HTN complicating peripregnancy, antepartum, second dynsbpcpl10/ Assessment & Plan (05/06/2024 1:02 PM EDT): [...] labetalol 100 mg 1 tablet twice daily forblood pressure control. Advised patient that if she develops dizziness or lightheadedness, has syncopal episode, or increased shortness of breath or chest pain to seek medical care. Bone cyst of foothronic pain in right foot09/18/2022 08/02/2024Shortness of pdwmtd19OVID-191 Congestion of nasal sinusough/ore chngkw18cute pain of left kneeInternal duodenal dpopqwg80olon tpqecvbhj73/21/owel mpnmdbnjazm70iarrhea Overview (10/20/2017): Added automatically from request for surgery [id number] History of maternal fourth degree perineal laceration, currently History of prior with short cervix, currently wxsjzekg95/12/233523/ Encounters DateTypeDepartmentCare AmubRkdncirnzzz17/17/2025Telephone [facility] [address] [place] [address] Priscilla Barker LPN 12/27/2024Telephone [facility] [address] [place] [address] Priscilla Barker LPN 12/22/2024Refill [facility] [address] [place] [address] Marlen Goldman, FEATHER MAKER-BEARING MAKER Iron deficiency anemia, unspecified iron deficiency anemia type12/22/2024Results Follow-Up [facility] [address] [place] [address] Marlen Goldman, FEATHER MAKER-BEARING MAKER Vitamin B12, Iron and TIBC, Folate, Additional followed-up results: Orders Only [facility], A Department of [address] [address] Quan Diaz MD Iron deficiency anemia, unspecified; Iron deficiency anemia due to chronic blood loss12/21/2024Orders Only [facility] - Medical Oncology [address] [place] [address] Quan Diaz MD 12/21/20246490Mdhaya90/05/2025 1:00 PM ESTInfusion [facility] Department of [address] [address] Crohn's disease of both small and large intestine with intestinal obstruction (CMS-HCC) (Primary Dx)12/15/2024Telephone [facility], A Department of [address] [address] Lupe Barba RN 12/13/20241687Raktxe84/03/2025 8:20 AM EDTOffice Visit [facility] [address] [place] [place] [address] Stu Rodriguez, FEATHER MAKER-BEARING MAKER Open wound of nasal cavity, initial encounter (Primary Dx); Iron deficiency anemia, ooowdgrvgap76/03/1402Gdpbpw16/24/2025 1:00 PM EDT Infusion [facility] [address] [facility] [facility] [place] [address] Crohn's disease of both small and large intestine with intestinal obstruction (CMS-HCC) (Primary Dx)10/26/2024Travelfrom Last 3 Months Immunizations No known immunizations Family History Medical HistoryRelationNameCommentsAnemiaMotherDiabetesMotherHeart failureMother HypertensionMotherStrokeMotherColon cancerNeg HxRelationNameStatusCommentsFather AliveMaternal GrandfatherDeceasedMaternal GrandmotherDeceasedMotherDeceased Paternal GrandfatherDeceasedPaternal GrandmotherDeceased Social History Tobacco UseTypesPacks/DayYears UsedDateSmoking Tobacco: NeverSmokeless Tobacco: Never Tobacco Cessation:Counseling Given: Not Answered Alcohol UseStandard Drinks/WeekCommentsNo0 (1 standard drink = 0.6 oz pure alcohol)[facility] UtilitiesAnswerDate RecordedIn the past 12 months has the [employer], gas, oil, or water [employer] threatened to shut off services in your home?No 06/17/2024UDIT-CAnswerDate RecordedQ1: How often do you have a drink containing alcohol?Never06/17/2024Q2: How many drinks containing alcohol do you have on a typical day when you are drinking?Patient does not drink06/17/2024Q3: How often do you have six or more drinks on one occasion?Never06/17/2024PHQ-2AnswerDate RecordedTotal Cdzre848PRAPARE - TransportationAnswerDate RecordedIn the past 12 months, has lack of transportation kept you from medical appointments or from getting medications?No06/17/2024In the past 12 months, has lack of transportation kept you from meetings, work, or from getting things needed for daily living?No06/17/2024Edinburgh Depression ScaleAnswerDate Recorded Gardiner Depression Scale Lqnbs974The thought of harming myself has occurred to me.Never06/21/2024Housing InstabilityAnswerDate Recorded Are you worried or concerned that in the next two months you may not have stable housing that you own, rent or stay in as a part of a household?No06/21/2024 ChildcareAnswerDate RecordedDo problems getting child neurologist make it difficult for you to work or study?No06/21/2024EmploymentAnswerDate RecordedEmploymentUnknown 07/10/2018Hunger ScreeningAnswerDate RecordedWithin the past 12 months we worried whether our food would run out before we got money to buy more.Never True11/12/2024Within the past 12 months the food we bought just didn't last and we didn't have money to get more.Never True11/12/2024Purpose - LifeAnswerDate RecordedPurpose and direction in cirwOzgacgd59/19/2021CommentsNoSex and Gender InformationValueDate RecordedSex Assigned at BirthNot on fileLegal Sex Bqypuv2709/13/2014 9:19 PM EDTGender IdentityNot on fileSexual OrientationNot on file Last Filed Vital Signs Vital SignReadingTime TakenCommentsBlood Irdnbmvr223/7112/15/2024 3:15 PM EST Ldhrw019412/15/2024 3:15 PM SYQDsyosolcmoi69.9 ??C (98.5 ??F)12/15/2024 3:15 PM ESTRespiratory Esnf891002/15/2024 3:15 PM ESTOxygen Uomcbdcfiy74%11/12/2024 8:27 AM EDTInhaled Oxygen Concentration--Jbzozq05.3 kg (168 lb 3.2 oz)12/15/2024 1:25 PM VXGYxebba442.1 cm (5' 5 )11/12/2024 8:27 AM EDTBody Mass Index27.9911/12/2024 8:27 AM EDT Plan of Treatment DateTypeDepartmentCare Team (Latest Contact Info)Wukbmpqkisg75/21/2025 1:30 PM ESTOffice Visit [facility], [facility] Department of [facility] [address] [facility] [address] [place] [phone] Josephine Turner, PA [address] [facility] [place] [address] 01/03/2025 10:00 AM ESTInfusion [facility] - [facility] Oncology [address] [place] [address] 01/08/2025 9:40 AM ESTLab [facility] - Lab [address] [place] [address] 01/08/2025 10:00 AM ESTLab [facility] - Lab [address] [place] [address] 01/10/2025 9:00 AM ESTOffice Visit [facility] - Medical Oncology [address] [place] [address] Ree Moreno, FEATHER MAKER-BEARING MAKER [facility] [facility] [place] [address] 01/11/2025 1:45 PM ESTOffice Visit [facility] Physicians Vascular Surgery [facility] [facility] [address] [place] [address] Cee Sagastume, FEATHER MAKER-BEARING MAKER [address] [facility] [place] [address] 01/17/2025 1:45 PM ESTOffice Visit [facility] Women's Services [address] [place] [address] Teresa Jamison, FEATHER MAKER-CNM [address] [place] [address] 01/26/2025 1:00 PM ESTInfusion [facility], A Department of [address] [address] 03/09/2025 1:00 PM ESTInfusion [facility] Digestive [facility], A Department of [address] [phone] Health MaintenanceDue DateLast DoneCommentsAdult BMI Follow Up Plan11/11/2007 DTaP,Tdap and Td Vaccines (1 - Tdap)2008Influenza Dqcfstf2010/11/2024 Depression Byipimzal85, 06/21/2024Tobacco Zfkiykhtx88/03/2026 11/12/2024dult BMI Vtqqbglhp55/06/2024Pap Smear/09/2024, 09/17/2023 Goals GoalPatient Goal TypeAssociated ProblemsRecent ProgressPatient-Stated?Author <enter goal here> Nikky Rosario LSW Note: Evaluation of progress towards goal: pt would like to return home with family support vs going to [facility] while her baby remains in NICU Medical Devices Not on file Procedures Procedure NamePriorityDate/TimeAssociated DiagnosisCommentsCBC WITH AUTO ZJIBBCEJRSQGAIJR73/11/2025 3:27 PM EST Other iron deficiency anemia IOXSKQCGZXDV92/11/2025 3:27 PM EST Other iron deficiency anemia ZKKMVAUWGH71/11/2025 3:27 PM EST Other iron deficiency anemia IRON AND ZKVWJMMT55/11/2025 3:27 PM EST Other iron deficiency anemia VITAMIN C36DAXL3912/21/2024 3:27 PM EST Other iron deficiency anemia from Last 3 Months Results * (ABNORMAL) CBC auto differential (12/21/2024 3:27 PM EST)ComponentValueRef RangeTest MethodAnalysis TimePerformed AtPathologist SignatureWBC3.2(L)4 - 11 X10^9/L102/21/2024 5:39 PM ESTPROCOMMUNITY HOSPITAL OF HUNTINGTON PARKRBC Count3.36 (L)3.8 - 5.2 X10^12/L102/21/2024 5:39 PM [facility] Hemoglobin8.3(L)11.7 - 15.5 g/dL12/21/2024 5:39 PM ESTKINDRED [facility]ITAL DAYTONHematocrit26.6(L)35 - 47 %12/21/2024 5:39 PM ESTPROCOMMUNITY HOSPITAL OF HUNTINGTON PARKMCV79(L)80 - 100 fL12/21/2024 5:39 PM ESTKINDRED HOSPITAL DAYTONMCH24.7(L)27 - 34 pg12/21/2024 5:39 PM ESTKINDRED HOSPITAL DAYTONMCHC31.2(L)32 - 36 g/dL12/21/2024 5:39 PM EST [facility]TONRDW18.4(H)11.5 - 15 %12/21/2024 5:39 PM EST [facility]Platelet Ezehx632837 - 450 X10^9/L 12/21/2024 5:39 PM ESTKINDRED HOSPITAL DAYTONMPV9.27 - 12 fL 12/21/2024 5:39 PM ESTKINDRED HOSPITAL DAYTONNeutrophils %43% 12/21/2024 5:39 PM ESTKINDRED HOSPITAL DAYTONComment:This is an appended report. These results have been appended to a previously preliminary verified report.Lymphocytes %51%12/21/2024 5:39 PM ESTKINDRED HOSPITAL DAYTONComment:This is an appended report. These results have been appended to a previously preliminary verified report.Monocytes %5%12/21/2024 5:39 PM ESTKINDRED HOSPITAL DAYTONComment:This is an appended report. These results have been appended to a previously preliminary verified report.Eosinophils %1%12/21/2024 5:39 PM [facility]:This is an appended report. These results have been appended to a previously preliminary verified report.Neutrophils Absolute (M)1.4(L)1.5 - 6.6 X10^9/L102/21/2024 5:39 PM [facility]: This is an appended report. These results have been appended to a previously preliminary verified report.Lymphocytes Absolute1.61.0 - 3.5 X10^9/L102/21/2024 5:39 PM [facility]:This is an appended report. These results have been appended to a previously preliminary verified report.Monocytes Absolute0.20.0 - 0.9 X10^9/L102/21/2024 5:39 PM [facility]Comment:This is an appended report. These results have been appended to a previously preliminary verified report.Eosinophils Absolute0.00.0 - 0.4 X10^9/L102/21/2024 5:39 PM [facility]Comment:This is an appended report. These results have been appended to a previously preliminary verified report.Hypochromia1+12/21/2024 5:39 PM [facility]Comment:This is an appended report. These results have been appended to a previously preliminary verified report. Differential TypeMANUAL WGEGDDDQWKAN85/11/2025 5:39 PM [facility]Comment:This is an appended report. These results have been appended to a previously preliminary verified report.Specimen (Source) Anatomical Location / LateralityCollection Method / VolumeCollection Time Received TimeBloodVenous blood / UnknownVenipuncture / Eqsleze5612/21/2024 3:27 PM EST12/21/2024 3:27 PM EST Narrative Authorizing ProviderResult TypeResult StatusMarlen Goldman FEATHER MAKER-CNPLAB BLOOD ORDERABLESFinal ResultPerforming OrganizationAddressCity/State/ZIP CodePhone Number [facility] [address] [place] [address], [place] * (ABNORMAL) Iron and TIBC (12/21/2024 3:27 PM EST)ComponentValueRef RangeTest MethodAnalysis TimePerformed AtPathologist ThnadkoesTABT46(L)50 - 170 ug/dL 12/21/2024 11:21 PM [facility]ATORYIRON BLYCJJJ247744 - 425 ug/dL12/21/2024 11:21 PM [facility] LABORATORYIRON SATURATION5(L)15 - 50 % RKNFKVEECB85/11/2025 11:21 PM [facility] LABORATORYSpecimen (Source)Anatomical Location / LateralityCollection Method / VolumeCollection TimeReceived TimeBloodVenous blood / Unknown Venipuncture / Plpyimh0212/21/2024 3:27 PM EST12/21/2024 3:27 PM EST Narrative Authorizing ProviderResult TypeResult StatusTina Jones FEATHER MAKER-CNPLAB BLOOD ORDERABLESFinal ResultPerforming OrganizationAddressCity/State/ZIP CodePhone Number [facility] [address] [place] [address], * Folate (12/21/2024 3:27 PM EST)ComponentValueRef RangeTest MethodAnalysis Time Performed AtPathologist SignatureFOLIC ACID20.3>5.8 ng/mL12/21/2024 11:42 PM [facility] LABORATORYSpecimen (Source)Anatomical Location / LateralityCollection Method / VolumeCollection TimeReceived TimeBloodVenous blood / UnknownVenipuncture / Stbvaav3912/21/2024 3:27 PM EST12/21/2024 3:27 PM EST Narrative Authorizing ProviderResult TypeResult StatusMarlen Goldman FEATHER MAKER-CNPLAB BLOOD ORDERABLESFinal ResultPerforming OrganizationAddressCity/State/ZIP CodePhone Number [facility] [address] [place] [address], * (ABNORMAL) Ferritin (12/21/2024 3:27 PM EST)ComponentValueRef RangeTest Method Analysis TimePerformed AtPathologist SignatureFERRITIN2(L)11 - 307 ng/mL 12/21/2024 11:39 PM [facility] LABORATORYSpecimen (Source) Anatomical Location / LateralityCollection Method / VolumeCollection Time Received TimeBloodVenous blood / UnknownVenipuncture / Ccfvtnt2112/21/2024 3:27 PM EST12/21/2024 3:27 PM EST Narrative Authorizing ProviderResult TypeResult StatusMarlen Goldman FEATHER MAKER-CNPLAB BLOOD ORDERABLESFinal ResultPerforming OrganizationAddressCity/State/ZIP CodePhone Number [facility] [address] [place] [address], * Vitamin B12 (12/21/2024 3:27 PM EST)ComponentValueRef RangeTest MethodAnalysis TimePerformed AtPathologist SignatureVITAMIN [id number] - 914 pg/mL12/21/2024 11:43 PM [facility] LAB[facility]ATORYSpecimen (Source)Anatomical Location / LateralityCollection Method / VolumeCollection TimeReceived Time BloodVenous blood / UnknownVenipuncture / Namcial3612/21/2024 3:27 PM EST 12/21/2024 3:27 PM EST Narrative Authorizing ProviderResult TypeResult StatusTina Jones FEATHER MAKER-CNPLAB BLOOD ORDERABLESFinal ResultPerforming OrganizationAddressCity/State/ZIP CodePhone Number [facility] [address] [place] [address], from Last 3 Months Insurance Advance Directives TypeDate RecordedPatient RepresentativeExplanationDurable Power of Insurance Rater 06/24/2024 7:04 AMDurable Power of Attorney06/17/2024 5:06 PMPower of Insurance Rater 06/17/2024dvance Directive06/17/2024 5:03 PM* Nick Harper Power of Insurance Rater 06/17/2024Durable Power of Attorney06/17/2024 4:27 PM[place] Health Care Power of Insurance Rater * Full Code (Latest Code Status on File) Date ActivatedDate InactivatedComments06/16/2024 11:28 PM06/18/2024 7:53 PM * Full Code Date ActivatedDate InactivatedComments05/30/2024 7:30 PM06/10/2024 7:43 PM * Full Code Date ActivatedDate InactivatedComments07/03/2019 3:39 PM07/03/2019 7:07 PM * Full Code Date ActivatedDate InactivatedComments04/02/2018 11:45 AM04/10/2018 4:06 PM * Full Code Date ActivatedDate InactivatedComments10/17/2017 8:36 PM10/22/2017 7:23 PM NameRelationshipHealthcare Agent RelationshipCommunicationRaymond Leroy Significant OtherHealth Care Agent* Care Teams Team MemberRelationshipSpecialtyStart DateEnd Date Hilary Aviles, FEATHER MAKER-BEARING MAKER [address] [place] [address] PCP - GeneralFamily Wkvywsna59/23/24
--- OUTSIDE RECORDS SUMMARY | 2024-12-31 09:04 | XMS_ITS | Clinical Summary ---
Author Organization [facility] Address [address] [facility] [address], [address] [place] [address] Care Team Providers Care Stockbroker Name Role Phone Unavailable Primary Care Provider Unavailabl e Social History Tobacco UseTypesPacks/DayYears UsedDateSmoking Tobacco: Never Assessed CommentsUnknownSex and Gender InformationValueDate RecordedSex Assigned at Not on fileLegal PrcVtbucx32/12/2013 11:54 PM ESTGender IdentityNot on file Sexual OrientationNot on file Plan of Treatment Not on file
--- OUTSIDE RECORDS SUMMARY | 2024-12-31 09:04 | XMS_ITS | Encounter Summary ---
Author Organization [facility] HospitaliCardiac TechnologiesRidgeview [facility] Sys tem Address [facility] [id number] [address] [place] [address] Care Team Providers Care Target Protection Specialist Name Role Phone Hilary Aviles FIELD ATTENDANTCHELSEA [facility] Primary Care Provi lazarus Reason for Visit * ReasonCommentsMed Change Request Encounter Details DateTypeDepartmentCare Team (Latest Contact Info)Thgiopwwgnm90/12/2025Refill [facility] [address] [place] [address] Marlen Goldman APRNCHELSEA MARINE HOSP[facility] [address] [place], [place] [id number] Iron deficiency anemia, unspecified iron deficiency anemia type Social History Tobacco UseTypesPacks/DayYears UsedDateSmoking Tobacco: NeverSmokeless Tobacco: NeverAlcohol UseStandard Drinks/WeekCommentsNo0 (1 standard drink = 0.6 oz pure alcohol)[facility] UtilitiesAnswerDate RecordedIn the past 12 months has the electric, gas, oil, or water company threatened to shut off services in your home?No 06/17/2024UDIT-CAnswerDate RecordedQ1: How often do you have a drink containing alcohol?Never06/17/2024Q2: How many drinks containing alcohol do you have on a typical day when you are drinking?Patient does not drink05/08/2025Q3: How often do you have six or more drinks on one occasion?Never06/17/2024PHQ-2AnswerDate RecordedTotal Ucjxx149PRAPARE - TransportationAnswerDate RecordedIn the past 12 months, has lack of transportation kept you from medical appointments or from getting medications?No06/17/2024In the past 12 months, has lack of transportation kept you from meetings, work, or from getting things needed for daily living?No06/17/2024Edinburgh Depression ScaleAnswerDate Recorded Harviell Depression Scale Gagff210The thought of harming myself has occurred to me.Never06/21/2024Housing InstabilityAnswerDate Recorded Are you worried or concerned that in the next two months you may not have stable housing that you own, rent or stay in as a part of a household?No06/21/2024 ChildcareAnswerDate RecordedDo problems getting exceptional children teacher make it difficult for you to work or study?No06/21/2024EmploymentAnswerDate RecordedEmploymentUnknown 07/10/2018Hunger ScreeningAnswerDate RecordedWithin the past 12 months we worried whether our food would run out before we got money to buy more.Never True11/12/2024Within the past 12 months the food we bought just didn't last and we didn't have money to get more.Never True11/12/2024Purpose - LifeAnswerDate RecordedPurpose and direction in hftrBthaymm38/19/2021CommentsNoSex and Gender InformationValueDate RecordedSex Assigned at BirthNot on fileLegal Sex Nhqhad4009/13/2014 9:19 PM EDTGender IdentityNot on fileSexual OrientationNot on filedocumented as of this encounter Plan of Treatment DateTypeDepartmentCare Team (Latest Contact Info)Kunodvfsfxs42/21/2025 1:30 PM ESTOffice Visit [facility] Care, A Department of [address] [address] Josephine Turner PA [address] [address] 01/03/2025 10:00 AM ESTInfusion Ally Lovell [facility] - Medical Oncology [address] [facility] [place] [address] 01/08/2025 9:40 AM ESTLab [facility] - Lab [address] [facility] [place] [address] 01/08/2025 10:00 AM ESTLab [facility] - Lab [address] [facility] [place] [address] 01/10/2025 9:00 AM ESTOffice Visit Ally Lovell [facility] - Medical Oncology [facility] [place] [address] Ree Moreno, FIELD ATTENDANT-ORACLE FUSION CONSULTANT [address] [facility], [address] [place] [address] 01/11/2025 1:45 PM ESTOffice Visit [facility] [facility] [address] [place] [address] Cee Sagastume, FIELD ATTENDANT-ORACLE FUSION CONSULTANT [address] [facility] [place] [address] 01/17/2025 1:45 PM ESTOffice Visit [facility] [address] [place] [address] Teresa Jamison, FIELD ATTENDANT-CNM [address] [place] [address] 01/26/2025 1:00 PM ESTInfusion [facility], A Department of [facility]edic[facility] [address] [facility] [address] [place] [address] 03/09/2025 1:00 PM ESTInfusion [facility], A Department of [address] [address] documented as of this encounter Goals GoalPatient Goal TypeAssociated ProblemsRecent ProgressPatient-Stated?Author <enter goal here> Nikky Rosario LSW Note: Evaluation of progress towards goal: pt would like to return home with family support vs going to [facility] while her baby remains in NICU documented as of this encounter Visit Diagnoses Diagnosis Iron deficiency anemia, unspecified iron deficiency anemia type documented in this encounter Additional Health Concerns AssessmentNoted TimePHQ-9 Depression Total Score: 8:26 AM EDT documented as of this encounter Care Teams Team MemberRelationshipSpecialtyStart DateEnd Date Hilary Aviles, FIELD ATTENDANT-ORACLE FUSION CONSULTANT [address], [place] [address] PCP - GeneralFamily Zczvzhbm80/23/24documented as of this encounter
--- OUTSIDE RECORDS SUMMARY | 2024-12-31 09:04 | XMS_ITS | Encounter Summary ---
Author Organization [facility] HospitalCor[facility] [employer] Sys tem Address [facility] [place][id number] [address] [place] [address] Care Team Providers Care Stud Sheep Farmer Name Role Phone Hilary Aviles APRN-[facility] Primary Care Provi lazarus Encounter Details DateTypeDepartmentCare Team (Latest Contact Info)Wvamhkbtolk71/17/2025Telephone [facility] [address] [place] [address] Priscilla Barker LPN Social History Tobacco UseTypesPacks/DayYears UsedDateSmoking Tobacco: NeverSmokeless Tobacco: NeverAlcohol UseStandard Drinks/WeekCommentsNo0 (1 standard drink = 0.6 oz pure alcohol)[facility] UtilitiesAnswerDate RecordedIn the past 12 months has the [employer], gas, oil, or water [employer] threatened to shut off services in your home?No 06/17/2024UDIT-CAnswerDate RecordedQ1: How often do you have a drink containing alcohol?Never06/17/2024Q2: How many drinks containing alcohol do you have on a typical day when you are drinking?Patient does not drink06/17/2024Q3: How often do you have six or more drinks on one occasion?Never06/17/2024PHQ-2AnswerDate RecordedTotal Xtwpr300PRAPARE - TransportationAnswerDate RecordedIn the past 12 months, has lack of transportation kept you from medical appointments or from getting medications?No06/17/2024In the past 12 months, has lack of transportation kept you from meetings, work, or from getting things needed for daily living?No06/17/2024Edinburgh Depression ScaleAnswerDate Recorded Tennille Depression Scale Krhog609The thought of harming myself has occurred to me.Never06/21/2024Housing InstabilityAnswerDate Recorded Are you worried or concerned that in the next two months you may not have stable housing that you own, rent or stay in as a part of a household?No06/21/2024 ChildcareAnswerDate RecordedDo problems getting early childhood education worker make it difficult for you to work or study?No06/21/2024EmploymentAnswerDate RecordedEmploymentUnknown 07/10/2018Hunger ScreeningAnswerDate RecordedWithin the past 12 months we worried whether our food would run out before we got money to buy more.Never True11/12/2024Within the past 12 months the food we bought just didn't last and we didn't have money to get more.Never True11/12/2024Purpose - LifeAnswerDate RecordedPurpose and direction in lyqxOvhdqwd11/19/2021CommentsNoSex and Gender InformationValueDate RecordedSex Assigned at BirthNot on fileLegal Sex Tqxjjj8509/13/2014 9:19 PM EDTGender IdentityNot on fileSexual OrientationNot on filedocumented as of this encounter Miscellaneous Notes * Telephone Encounter - Priscilla Barker LPN - 12/27/2024 12:39 PM EST Spoke with pharmacist regarding Accufer 30mg prescription. The pharmacist was able to run the medication through the patient secondary coverage and it was approved for coverage for $0.00 copay. The pharmacist said that medication should be ready for picking machine operator helper by this afternoon or tomorrow. Notified the patient. documented in this encounter Plan of Treatment DateTypeDepartmentCare Team (Latest Contact Info)Ujoehflxhvr14/21/2025 1:30 PM ESTOffice Visit [facility], A Department of [facility] [address] [facility] [address] [place] [address] Josephine Turnre, PA [address] [facility]. [address] [place] [address] 01/03/2025 10:00 AM ESTInfusion Ally L Nas [facility] - Medical Oncology [address] [place] [address] 01/08/2025 9:40 AM ESTLab [facility] - Lab [address] [facility] [place] [address] 01/08/2025 10:00 AM ESTLab [facility] - Lab [address] [facility] [place] [address] 01/10/2025 9:00 AM ESTOffice Visit Ally Richey Nas [facility] - Medical Oncology [address] [place] [address] Ree Moreno, DESIGNER/WRITER-TEA TREE FARM WORKER [facility] [facility], [address] [place] [address] 01/11/2025 1:45 PM ESTOffice Visit [facility]icians Vascular Surgery [facility]1 [facility] [address] [place] [address] Cee Sagastume, DESIGNER/WRITER-TEA TREE FARM WORKER [address] [facility] [place] [address] 01/17/2025 1:45 PM ESTOffice Visit [facility] [address] [place] [address] Teresa Jamison, DESIGNER/WRITER-CNM [address], [address] [place] [address] 01/26/2025 1:00 PM ESTInfusion [facility], A Department of [address] [address] 03/09/2025 1:00 PM ESTInfusion [facility], A Department of [address] [address] documented as of this encounter Goals GoalPatient Goal TypeAssociated ProblemsRecent ProgressPatient-Stated?Author <enter goal here> Nikky Rosario LSW Note: Evaluation of progress towards goal: pt would like to return home with family support vs going to [facility] while her baby remains in NICU documented as of this encounter Visit Diagnoses Not on filedocumented in this encounter Additional Health Concerns AssessmentNoted TimePHQ-9 Depression Total Score: 8:26 AM EDT documented as of this encounter Care Teams Team MemberRelationshipSpecialtyStart DateEnd Date Hilary Aviles, DESIGNER/WRITER-TEA TREE FARM WORKER [address], [place] [address] PCP - GeneralFamily Klafukar92/23/24documented as of this encounter
--- OUTSIDE RECORDS SUMMARY | 2024-12-31 09:04 | XMS_ITS | Encounter Summary ---
Author Organization [facility] HospitalRithm[facility] BedyCasa Sys tem Address [facility]-[id number] [address] [place] [address] Care Team Providers Care Contact Lens Curve Grinder Name Role Phone Hilary Aviles APRN-[facility] Primary Care Provi lazarus Encounter Details DateTypeDepartmentCare Team (Latest Contact Info)Nrivjbppgoo11/17/2025Telephone [facility] [address] [place] [address] Priscilla Barker LPN Social History Tobacco UseTypesPacks/DayYears UsedDateSmoking Tobacco: NeverSmokeless Tobacco: NeverAlcohol UseStandard Drinks/WeekCommentsNo0 (1 standard drink = 0.6 oz pure alcohol)[facility] UtilitiesAnswerDate RecordedIn the past 12 months has the [employer], gas, oil, or water [employer] threatened to shut off services in your home?No 06/17/2024UDIT-CAnswerDate RecordedQ1: How often do you have a drink containing alcohol?Never06/17/2024Q2: How many drinks containing alcohol do you have on a typical day when you are drinking?Patient does not drink06/17/2024Q3: How often do you have six or more drinks on one occasion?Never06/17/2024PHQ-2AnswerDate RecordedTotal Pteoi333PRAPARE - TransportationAnswerDate RecordedIn the past 12 months, has lack of transportation kept you from medical appointments or from getting medications?No06/17/2024In the past 12 months, has lack of transportation kept you from meetings, work, or from getting things needed for daily living?No06/17/2024Edinburgh Depression ScaleAnswerDate Recorded Porter Depression Scale Tvfyg804The thought of harming myself has occurred to me.Never06/21/2024Housing InstabilityAnswerDate Recorded Are you worried or concerned that in the next two months you may not have stable housing that you own, rent or stay in as a part of a household?No06/21/2024 ChildcareAnswerDate RecordedDo problems getting early childhood teacher make it difficult for you to work or study?No06/21/2024EmploymentAnswerDate RecordedEmploymentUnknown 07/10/2018Hunger ScreeningAnswerDate RecordedWithin the past 12 months we worried whether our food would run out before we got money to buy more.Never True11/12/2024Within the past 12 months the food we bought just didn't last and we didn't have money to get more.Never True11/12/2024Purpose - LifeAnswerDate RecordedPurpose and direction in mqtcSmfqxdn61/19/2021CommentsNoSex and Gender InformationValueDate RecordedSex Assigned at BirthNot on fileLegal Sex Viwqew4209/13/2014 9:19 PM EDTGender IdentityNot on fileSexual OrientationNot on filedocumented as of this encounter Miscellaneous Notes * Telephone Encounter - Priscilla Barker LPN - 12/27/2024 10:41 AM EST Spoke with [employer] appeals department to file an appeal for the patient prior authorization that was denied for the medication accufer. The appeal has been submitted and the civil rights representative said it could take about 15 days to get an answer. The appeal number is [id number]. No further questions or concerns. documented in this encounter Plan of Treatment DateTypeDepartmentCare Team (Latest Contact Info)Nqgorodiydc46/21/2025 1:30 PM ESTOffice Visit [facility], A Department of [facility] [address] [facility] [address] [place] [address] Josephine Turner, PA [address] [facility]. [address] [place] [address] 01/03/2025 10:00 AM ESTInfusion Ally L Nas [facility] - Medical Oncology [address] [place] [address] 01/08/2025 9:40 AM ESTLab [facility] - Lab [address] [facility] [place] [address] 01/08/2025 10:00 AM ESTLab [facility] - Lab [address] [place] [address] 01/10/2025 9:00 AM ESTOffice Visit Ally L Nas [facility] - Medical Oncology [address] [place] [address] Ree Moreno, MOP WORKER-ASSEMBLER PING PONG TABLE [address] [facility], [address] [place] [address] 01/11/2025 1:45 PM ESTOffice Visit [facility] Physicians V[facility]1 [facility] [address] [place] [address] Cee Sagastume, MOP WORKER-ASSEMBLER PING PONG TABLE [address] [facility] [place] [address] 01/17/2025 1:45 PM ESTOffice Visit [facility] Services [address] [place] [address] Teresa Jamison, MOP WORKER-CNM [address], [address] [place] [address] 01/26/2025 1:00 PM ESTInfusion [facility] Care, A Department of [address] [address] 03/09/2025 1:[address] [facility] Care, A Department of [address] [address] documented as of this encounter Goals GoalPatient Goal TypeAssociated ProblemsRecent ProgressPatient-Stated?Author <enter goal here> Nikky Rosraio LSW Note: Evaluation of progress towards goal: pt would like to return home with family support vs going to [facility] while her baby remains in NICU documented as of this encounter Visit Diagnoses Not on filedocumented in this encounter Additional Health Concerns AssessmentNoted TimePHQ-9 Depression Total Score: 8:26 AM EDT documented as of this encounter Care Teams Team MemberRelationshipSpecialtyStart DateEnd Date Hilary Aviles, MOP WORKER-ASSEMBLER PING PONG TABLE [address] [place] [address] PCP - GeneralFamily Utwttuxn58/23/24documented as of this encounter
--- OUTSIDE RECORDS SUMMARY | 2024-12-31 09:04 | XMS_ITS | Encounter Summary ---
Author Organization [facility] tem Address [facility]-[id number] [address] [place] [address] Care Team Providers Care Manager Payment Name Role Phone Hilary Aviles APRN-RUBBER TILE FLOOR LAYER Primary Care Provi [facility] Encounter Details DateTypeDepartmentCare Team (Latest Contact Info)Pxlsiaohgfi38/05/2025Telephone [facility], A Department of [address] [address] Lupe Barba RN Social History Tobacco UseTypesPacks/DayYears UsedDateSmoking Tobacco: NeverSmokeless Tobacco: NeverAlcohol UseStandard Drinks/WeekCommentsNo0 (1 standard drink = 0.6 oz pure alcohol)[facility] UtilitiesAnswerDate RecordedIn the past 12 months has the [employer], gas, oil, or water [employer] threatened to shut off services in your home?No 06/17/2024UDIT-CAnswerDate RecordedQ1: How often do you have a drink containing alcohol?Never06/17/2024Q2: How many drinks containing alcohol do you have on a typical day when you are drinking?Patient does not drink06/17/2024Q3: How often do you have six or more drinks on one occasion?Never06/17/2024PHQ-2AnswerDate RecordedTotal Tyvuk587PRAPARE - TransportationAnswerDate RecordedIn the past 12 months, has lack of transportation kept you from medical appointments or from getting medications?No06/17/2024In the past 12 months, has lack of transportation kept you from meetings, work, or from getting things needed for daily living?No06/17/2024Edinburgh Depression ScaleAnswerDate Recorded [place] Depression Scale Abcii592The thought of harming myself has occurred to me.Never06/21/2024Housing InstabilityAnswerDate Recorded Are you worried or concerned that in the next two months you may not have stable housing that you own, rent or stay in as a part of a household?No06/21/2024 ChildcareAnswerDate RecordedDo problems getting early childhood specialist make it difficult for you to work or study?No06/21/2024EmploymentAnswerDate RecordedEmploymentUnknown 07/10/2018Hunger ScreeningAnswerDate RecordedWithin the past 12 months we worried whether our food would run out before we got money to buy more.Never True11/12/2024Within the past 12 months the food we bought just didn't last and we didn't have money to get more.Never True11/12/2024Purpose - LifeAnswerDate RecordedPurpose and direction in dkctYapecje51/19/2021CommentsNoSex and Gender InformationValueDate RecordedSex Assigned at BirthNot on fileLegal Sex Aurbsf0109/13/2014 9:19 PM EDTGender IdentityNot on fileSexual OrientationNot on filedocumented as of this encounter Miscellaneous Notes * Telephone Encounter - Lupe Barba RN - 12/15/2024 4:11 PM EST Patient authorization expires on 01/18/25. Patient is taking the Renflexis infusion. The dose is 400mg every 6 weeks. The next infusion is on 01/26/25 The diagnosis code is K50.812 * Telephone Encounter - Tania Gayle - 12/15/2024 4:11 PM EST Avsola 5mg/kg (400mg) every 42 days PA form completed faxed to [phone] documented in this encounter Plan of Treatment DateTypeDepartmentCare Team (Latest Contact Info)Xkkxslmoypm13/21/2025 1:30 PM ESTOffice Visit [facility], A Department of [facility] [address] [facility] [address] [place] [address] Josephine Turner, PA [address] [facility] [address] [place] [address] 01/03/2025 10:00 AM ESTInfusion [facility] [place] [address] 01/08/2025 9:40 AM ESTLab [facility] - Lab [address] [place] [address] 01/08/2025 10:00 AM ESTLab [facility] - Lab [address] [place] [address] 01/10/2025 9:00 AM ESTOffice Visit Ally Lovell [facility] - Medical Oncology [address] [place] [address] Ree Moreno, CONTACT CENTER ENGINEER-RUBBER TILE FLOOR LAYER [address] [place] [address], [address] [place] [address] 01/11/2025 1:45 PM ESTOffice Visit [facility] V[facility] Surgery [address] [place] [address] [facility] [address] [place] [address] Cee Sagastume, CONTACT CENTER ENGINEER-RUBBER TILE FLOOR LAYER [address] [facility] [place] [address] 01/17/2025 1:45 PM ESTOffice Visit [facility] Women's Services [address] [place] [address] Teresa Jamison APRN-VITA [address], [address] [place] [address] 01/26/2025 1:00 PM ESTInfusion [facility], A Department of [address] [place] [address] 03/09/2025 1:00 PM ESTInfusion [facility], A Department of [address] [place] [address] documented as of this encounter Goals GoalPatient Goal TypeAssociated ProblemsRecent ProgressPatient-Stated?Author <enter goal here> Nikky Rosario LSW Note: Evaluation of progress towards goal: pt would like to return home with family support vs going to [facility] while her baby remains in NICU documented as of this encounter Visit Diagnoses Not on filedocumented in this encounter Additional Health Concerns AssessmentNoted TimePHQ-9 Depression Total Score: 8:26 AM EDT documented as of this encounter Care Teams Team MemberRelationshipSpecialtyStart DateEnd Date Hilary Aviles, PAUL-RUBBER TILE FLOOR LAYER [address], [place] [address] PCP - GeneralFamily Qgykyrni55/23/24documented as of this encounter
--- OUTSIDE RECORDS SUMMARY | 2024-12-31 09:04 | XMS_ITS | Encounter Summary ---
Author Organization [facility] tem Address [id number] [address] [place] [address] Care Team Providers Care Dredge Engineer Name Role Phone Hilary Aviles APRNWALDEN [facility] Primary Care Provi [facility] Encounter Details DateTypeDepartmentCare Team (Latest Contact Info)Icnzlojbwap94/11/2025Orders Only Ally Richey [facility] - Medical Oncology [address] [place] [address] Quan Diaz MD [address] [place] [address] [place], [place] [id number] Social History Tobacco UseTypesPacks/DayYears UsedDateSmoking Tobacco: NeverSmokeless Tobacco: NeverAlcohol UseStandard Drinks/WeekCommentsNo0 (1 standard drink = 0.6 oz pure alcohol)[facility] UtilitiesAnswerDate RecordedIn the past 12 months [...] or more drinks on one occasion?Never06/17/2024PHQ-2AnswerDate RecordedTotal Srjbc100PRAPARE - TransportationAnswerDate RecordedIn the past 12 months, has lack of transportation kept you from medical appointments or from getting medications?No06/17/2024In the past 12 months, has lack of transportation kept you from meetings, work, or from getting things needed for daily living?No06/17/2024Edinburgh Depression ScaleAnswerDate Recorded Van Depression Scale Bjdru222The thought of harming myself has occurred to me.Never06/21/2024Housing InstabilityAnswerDate Recorded Are you worried or concerned that in the next two months you may not have stable housing that you own, rent or stay in as a part of a household?No06/21/2024 ChildcareAnswerDate RecordedDo problems getting child watch attendant make it difficult for you to work or study?No06/21/2024EmploymentAnswerDate RecordedEmploymentUnknown 07/10/2018Hunger ScreeningAnswerDate RecordedWithin the past 12 months we worried whether our food would run out before we got money to buy more.Never True11/12/2024Within the past 12 months the food we bought just didn't last and we didn't have money to get more.Never True11/12/2024Purpose - LifeAnswerDate RecordedPurpose and direction in dhyxNexxvjs69/19/2021CommentsNoSex and Gender InformationValueDate RecordedSex Assigned at BirthNot on fileLegal Sex Nakyay2009/13/2014 9:19 PM EDTGender IdentityNot on fileSexual OrientationNot on filedocumented as of this encounter Plan of Treatment DateTypeDepartmentCare Team (Latest Contact Info)Rbyznhdhsvp90/21/2025 1:30 PM ESTOffice Visit [facility], A Department of [facility] [address] [place] [address] Josephine Turner PA [address] [facility] [address] [place] [address] 01/03/2025 10:00 AM ESTInfusion [facility] [place] - Medical Oncology [address] [place] [address] 01/08/2025 9:40 AM ESTLab [facility] - Lab [address] [place] [place] [address] 01/08/2025 10:00 AM ESTLab [facility] - Lab [address] [place] [place] [address] 01/10/2025 9:00 AM ESTOffice Visit Ally Lovell [facility] - Medical Oncology [address] [place] [address] Ree Moreno, WEAVING TEACHER-NUCLEAR PLANT INSTRUMENT TECHNICIAN [address] [facility], [address] [place] [address] 01/11/2025 1:45 PM ESTOffice Visit [facility] [address] [place] [address] Cee Sagastume, WEAVING TEACHER-NUCLEAR PLANT INSTRUMENT TECHNICIAN [address] [facility] [place] [address] 01/17/2025 1:45 PM ESTOffice Visit [facility] [address] [facility] [address] [place] [phone] Teresa Jamison, WEAVING TEACHER-CNM [address] [facility] [place] [address] 01/26/2025 1:00 PM ESTInfusion [facility], A Department of [address] [place] [address] 03/09/2025 1:00 PM ESTInfusion [facility], A Department of [facility] [phone] documented as of this encounter Goals GoalPatient Goal TypeAssociated ProblemsRecent ProgressPatient-Stated?Author <enter goal here> Nikky Rosario LSW Note: Evaluation of progress towards goal: pt would like to return home with family support vs going to [facility] while her baby remains in NICU documented as of this encounter Visit Diagnoses Not on filedocumented in this encounter Additional Health Concerns AssessmentNoted TimePHQ-9 Depression Total Score: 8:26 AM EDT documented as of this encounter Care Teams Team MemberRelationshipSpecialtyStart DateEnd Date Hilary Aviles, WEAVING TEACHER-NUCLEAR PLANT INSTRUMENT TECHNICIAN [address], [place] [address] PCP - GeneralFamily Xihyzxtp96/23/24documented as of this encounter
--- OUTSIDE RECORDS SUMMARY | 2024-12-31 09:04 | XMS_ITS | Encounter Summary ---
Author Organization [facility] Embly s tem Address [id number] [address] [place] [address] Care Team Providers Care Beauty School Instructor Name Role Phone Hilary Aviles APRN-CINEMA OR THEATRE MANAGER Primary Care Provi [facility] Encounter Details DateTypeDepartmentCare Team (Latest Contact Info)Fhwlknutdzt12/11/2025Orders Only [facility] Hematology Oncology, A Department of [address] [address] Quan Diaz MD [address] [facility] [address] [place] [address] Iron deficiency anemia, unspecified; Iron deficiency anemia due to chronic blood loss Social History Tobacco UseTypesPacks/DayYears UsedDateSmoking Tobacco: NeverSmokeless Tobacco: NeverAlcohol UseStandard Drinks/WeekCommentsNo0 (1 standard drink = 0.6 oz pure alcohol)[facility] UtilitiesAnswerDate RecordedIn the past 12 months has the [employer], gas, oil, or water [place] threatened to shut off services in your home?No 06/17/2024UDIT-CAnswerDate RecordedQ1: How often do you have a drink containing alcohol?Never06/17/2024Q2: How many drinks containing alcohol do you have on a typical day when you are drinking?Patient does not drink06/17/2024Q3: How often do you have six or more drinks on one occasion?Never06/17/2024PHQ-2AnswerDate RecordedTotal Fwnbn438PRAPARE - TransportationAnswerDate RecordedIn the past 12 months, has lack of transportation kept you from medical appointments or from getting medications?No06/17/2024In the past 12 months, has lack of transportation kept you from meetings, work, or from getting things needed for daily living?No06/17/2024Edinburgh Depression ScaleAnswerDate Recorded Hurley Depression Scale Vzrej420The thought of harming myself has occurred to me.Never06/21/2024Housing InstabilityAnswerDate Recorded Are you worried or concerned that in the next two months you may not have stable housing that you own, rent or stay in as a part of a household?No06/21/2024 ChildcareAnswerDate RecordedDo problems getting childcare aide make it difficult for you to work or study?No06/21/2024EmploymentAnswerDate RecordedEmploymentUnknown 07/10/2018Hunger ScreeningAnswerDate RecordedWithin the past 12 months we worried whether our food would run out before we got money to buy more.Never True11/12/2024Within the past 12 months the food we bought just didn't last and we didn't have money to get more.Never True11/12/2024Purpose - LifeAnswerDate RecordedPurpose and direction in hwilKkdyykp23/19/2021CommentsNoSex and Gender InformationValueDate RecordedSex Assigned at BirthNot on fileLegal Sex Kubvcc7209/13/2014 9:19 PM EDTGender IdentityNot on fileSexual OrientationNot on filedocumented as of this encounter Plan of Treatment DateTypeDepartmentCare Team (Latest Contact Info)Jdmqshwkwse79/21/2025 1:30 PM ESTOffice Visit [facility] Care, A Department of [address] [address] [place] [address] [place] [address] [place] [address] 01/03/2025 10:00 AM ESTInfusion [facility] [place] - Medical Oncology [address] [facility] [place] [address] 01/08/2025 9:40 AM ESTLab [facility] - Lab [address] [facility] [place] [address] 01/08/2025 10:00 AM ESTLab [facility] - Lab [address] [facility] [place] [address] 01/10/2025 9:00 AM ESTOffice Visit [facility] - Medical Oncology [address] [facility] [place] [address] Ree Moreno, WHEEL CUTTER-CINEMA OR THEATRE MANAGER [address] [facility], [address] [place] [address] 01/11/2025 1:45 PM ESTOffice Visit [facility]1 [facility] [address] [place] [address] Cee Sagastume, WHEEL CUTTER-CINEMA OR THEATRE MANAGER [address] [facility] [place] [address] 01/17/2025 1:45 PM ESTOffice Visit [facility] [address] [place] [address] Teresa Jamison, WHEEL CUTTER-CNM [address] [place] [address] 01/26/2025 1:00 PM ESTInfusion [facility], A Department [facility] [address] [facility] [address] [place] [address] 03/09/2025 1:00 PM ESTInfusion [facility], A Department of [address] [phone] documented as of this encounter Goals GoalPatient Goal TypeAssociated ProblemsRecent ProgressPatient-Stated?Author <enter goal here> Nikky Rosario LSW Note: Evaluation of progress towards goal: pt would like to return home with family support vs going to [facility] while her baby remains in NICU documented as of this encounter Visit Diagnoses Diagnosis Iron deficiency anemia, unspecified Iron deficiency anemia due to chronic blood loss Iron deficiency anemia secondary to blood loss (chronic) documented in this encounter Additional Health Concerns AssessmentNoted TimePHQ-9 Depression Total Score: 8:26 AM EDT documented as of this encounter Care Teams Team MemberRelationshipSpecialtyStart DateEnd Date Hilary Aviles, WHEEL CUTTER-CINEMA OR THEATRE MANAGER [address], [place] [address] PCP - GeneralFamily Pjhraipp76/23/24documented as of this encounter
--- OUTSIDE RECORDS SUMMARY | 2024-12-31 09:04 | XMS_ITS | Clinical Summary ---
Author Organization [facility] Address [address] [facility] [place] [address] Care Team Providers Care Parts Counter Salesperson Name Role Phone Hilary Aviles MD Unavailable [phone] Allergies No known active allergies Medications MedicationSigDispense QuantityRefillsLast FilledStart DateEnd DateStatus azaTHIOprine (Imuran) 50 MG tablet TAKE 3 TABLETS BY MOUTH IN THE QPDNWVO7605/06/2022ctive folic acid (Folvite) 1 MG tablet Take 1,000 mcg by mouth in the morning.05/07/2022ctive inFLIXimab-dyyb (Inflectra) 100 MG injection Infuse 5 mg/kg into a venous catheterActive Eliquis 5 MG tablet TAKE 1 TABLET BY MOUTH TWICE DAILY ( MORNING AND BEFORE BEDTIME )Active norethindrone-ethinyl estradiol (Aurovela FE 03/01) 1-20 MG-MCG tablet Indications:Menorrhagia with regular cycleTake 1 tablet by mouth Daily 28 tablet ctive Encounters DateTypeDepartmentCare GdmwUaqsckydrss18/13/2025 3:10 PM EDTOffice Visit [facility] [address] [place] [address] Parish Valdez DO Encounter for consultation; Menorrhagia with regular cycle11/22/2024amboo flowsheet [facility] [address] [place] [address] Parish Valdez DO 11/15/2024Orders Only [facility] [address] [place] [address] Avani Avila LPN 11/01/2024Telephone [facility] [address] [place] [address] Parish Valdez, 10/25/2024Telephone [facility] [address] [facility] [address] Kimi Simmons NP 10/18/2024 2:30 PM EDTProcedure Visit [facility] [address] [place] [address] Kimi Simmons NP Well woman exam with routine gynecological exam (Primary Dx)5Clinisync Result Encounter [facility] External Department Unsolicited Kimi Simmons NP 5Bamboo flowsheet [facility] [address] [place] [address] Kimi Simmons NP from Last 3 Months Family History Medical HistoryRelationNameCommentsAnemiaMotherDiabetesMotherHypertensionMother UpoggdahFmllJijllhXuxxmgpwIfpraao6Ofwnfxtl5BtsucjLhachx5 Social History Tobacco UseTypesPacks/DayYears UsedDateSmoking Tobacco: NeverSmokeless Tobacco: Never Tobacco Cessation:Counseling Given: Not Answered Alcohol UseStandard Drinks/WeekCommentsNever0 (1 standard drink = 0.6 oz pure alcohol)CommentsNoSex and Gender InformationValueDate RecordedSex Assigned at SbjyfSyjkto48/03/2023 3:34 PM EDTLegal UucXolasx21/15/2023 11:47 PM EDTGender YbedidcoLkuknv96/03/2023 3:34 PM EDTSexual OrientationStraight 09/12/2022 3:34 PM EDT Last Filed Vital Signs Vital SignReadingTime TakenCommentsBlood Zrjxedgw675/8210/ 3:26 PM EDT Pulse--Temperature--Respiratory Rate--Oxygen Saturation--Inhaled Oxygen Concentration--Cpriak74.1 kg (167 lb 12.8 oz)11/22/2024 3:26 PM YVGWgjkgg155.1 cm (5' 5 )11/22/2024 3:26 PM EDTBody Mass Index27.9211/22/2024 3:26 PM EDT Plan of Treatment DateTypeDepartmentCare Team (Latest Contact Info)Hnlnmkrxhxs52/16/2026 10:30 AM EDTProcedure Visit [facility] [address] [place] [address] [place] [phone] Parsih Valdez, DO [address] [facility] [address] [place], [place] [address] 10/24/2025 1:00 PM EDTProcedure Visit [facility]ESSICA T[facility] [address] [place] [address] [place] [address] Parish Valdez, DO [address] [facility] [address] [place] [address] Procedures Procedure NamePriorityDate/TimeAssociated DiagnosisCommentsIGP,APTIMA HPV,AGE VRROPvxyski49/08/2025 2:28 PM EDT PAP XZUNPAwbidga33/08/2025 12:00 AM EDTfrom Last 3 Months Results * (ABNORMAL) IGP,APTIMA HPV,AGE GDLN (10/18/2024 2:28 PM EDT)ComponentValueRef RangeTest MethodAnalysis TimePerformed AtPathologist SignatureAGE GDLN ACOG TESTINGNote.TBHComment: ?? TESTS ? RESULT ??FLAG ??UNITS ?REF RANGE ??LAB ?? Clinician Provided Cytology Information ?? Source.............Cervix;Endocervix ?? No. of containers..01 ThinPrep Vial Age Algo ACOG Jade... ??30-65 ? 01 ?FLAG LEGEND: ?L-Low Normal,H-High Normal,LL-Alert Low,HH-Alert High <-Panic Low,>-Panic High,A-Abnormal,AA-Critical Abnormal Performed at: 01 =G ?[facility] ?? [address] [place], [place] ??[address] ?? Leigh Ann Ortiz MD, IGP, APTIMA HPV, RFX 16/18,45Note.TBHComment: ?? TESTS ? RESULT ??FLAG ??UNITS ?REF RANGE ??LAB DIAGNOSIS: ?02 ?? NEGATIVE FOR INTRAEPITHELIAL LESION OR MALIGNANCY. Specimen adequacy: ?02 ?? Satisfactory for evaluation. ??Endocervical and/or squamous metaplastic ?? cells (endocervical component) are present. Performed by: ? 02 ?? Suleiman Danielson Director Biology (ASCP) . ? 02 Note: ? Note ?02 ?? The Pap smear is a screening test designed to aid in the ?? detection of premalignant and malignant conditions of the ?? uterine cervix. ??It is not a diagnostic procedure and ?? should not be used as the sole means of detecting cervical ?? cancer. ??Both false-positive and false-negative reports do ?? occur. Test Methodology: ? Note ?02 ?? This liquid based ThinPrep(R) pap test was screened with ?? the use of an image guided system. HPV Genotype Reflex ?? Note ?02 ?? Criteria met, see HPV Genotype results. ?FLAG LEGEND: ?L-Low Normal,H-High Normal,LL-Alert Low,HH-Alert High <-Panic Low,>-Panic High,A-Abnormal,AA-Critical Abnormal Performed at: 02 WB ?[facility] ?? [address] [place], [place] ??[address] ?? Leigh Ann Ortiz MD, HPV APTIMAPositive(A)NegativeTBHComment: This nucleic acid amplification test detects fourteen high- risk HPV types (16,18,31,33,35,39,45,51,52,56,58,59,66,68) without differentiation. HPV GENOTYPE 16NegativeNegativeTBHHPV GENOTYPE 18,45NegativeNegativeTBHComment: Performed at: ??=G - [facility] ??[id number] Classification Officer: Leigh Ann Ortiz MD, Phone: ??[phone] Performed at: ?? - [facility] ??[id number] Classification Officer: Leigh Ann Ortiz MD, Phone: ??[phone] Specimen (Source)Anatomical Location / LateralityCollection Method / Volume Collection TimeReceived Time10/18/2024 2:28 PM EDT10/18/2024 9:18 PM EDT Narrative [facility] - 10/22/2024 9:08 PM EDT BRUSH-SPATULA CERVIX ENDOCERVIX Authorizing ProviderResult TypeResult StatusKimi Simmons LAB BLOOD ORDERABLESFinal ResultPerforming OrganizationAddressCity/State/ZIP CodePhone Number [facility] * (ABNORMAL) Pap Smear (10/18/2024 12:00 AM EDT)Specimen (Source)Anatomical Location / LateralityCollection Method / VolumeCollection TimeReceived Time SwabCervical swab / Unknown Narrative Authorizing ProviderResult TypeResult StatusDeep Mckeon MDASHLAND HEALTH [facility] CYTOLOGY ORDERABLESFinal ResultPerforming OrganizationAddressCity/State/ZIP CodePhone Number EXTERNAL LAB from Last 3 Months Insurance Care Teams Team MemberRelationshipSpecialtyStart DateEnd Date Hilary Aviles MD [address] [place] [address] Referring PhysicianNurse Practitioner10/08/22
--- NOTE | 2024-12-31 09:05 | US_ITS ---
[address] [address] Patient Name: BINTA TANNER MRN: [id number] date: 1990 Sex: F Assigned Patient Location: US Current Patient Location: US Accession/Order Number: [id number] Exam Date: 12/31/2024 09:10 Report Date: 12/31/2024 10:45 At the request of: CHAPINCITO DOMINGO DO Procedure: US pelvis w/ transvaginal ULTRASOUND PELVIS WITH TRANSVAGINAL CLINICAL DATA: Menorrhagia COMPARISON: CT 05/30/2024 and ultrasound 04/09/2019 Real-time ultrasound evaluation of the pelvis was performed utilizing both a transabdominal and transvaginal approach. TRANSABDOMINAL: Estimated uterine size is approximately 12.6 x 4.7 x 6.6 cm. The myometrium is slightly heterogeneous. The endometrial lining is estimated at 9-10 mm. The right ovary is identified and it measures approximately 4.0 x 4.2 x 3.5 cm in size. It contains a small cyst measuring 1.8 x 1.7 x 2.1 cm in size. There is documentation of right ovarian blood flow. The left ovary is not seen. TRANSVAGINAL: Transvaginal scans were performed to better evaluate the uterus and adnexa. By this approach, the endometrial lining is estimated at 11-12 mm. The myometrium is heterogeneous. There is a focal hypoechoic nodule at the anterior fundus measuring approximately 16 mm in size. This may be a fibroid. A tiny nabothian cyst is visualized. The right ovary is again seen though is better visualized transabdominally. A small cyst is present. The left ovary is identified. It measures 4.3 x 3.4 x 4.0 cm. There are small follicles as well as a cyst with septations and echogenic foci at the periphery . It measures 3.5 x 3.2 x 2.5 cm in size. There is documentation of left ovarian blood flow. A small amount of free fluid is visualized adjacent to the left ovary. US/US pelvis w/ transvaginal IMPRESSION: POSSIBLE UTERINE FIBROID. BILATERAL OVARIAN CYSTS, LARGER AND MILDLY COMPLICATED ON THE LEFT. FOLLOW-UP IS RECOMMENDED TO ASSESS FOR RESOLUTION. TRACE AMOUNT OF FREE FLUID IN THE LEFT ADNEXAL REGION. Impression dictated by: Karli Ramos M.D. 12/31/2024 10:45 AM Dictation Location: [place] [address] Electronically authenticated by: [id number] Y Date: 12/31/2024 10:45
--- OUTSIDE RECORDS SUMMARY | 2024-12-31 09:08 | XMS_ITS | CCD ---
Author Organization [facility] Care Team Providers Care Cloth Printing Utility Worker Name Role Phone ADAMOWICZ, SAMARA J Unavailable [...] Care Unavailable Hilary Aviles MD Unavailable Traci ACTING INSTRUCTOR-PATROL MAN, Hilary A Primary Care Provi lazarus Traci ACTING INSTRUCTOR-PATROL MAN, Hilary A Primary Care Provi lazarus Traci ACTING INSTRUCTOR-PATROL MAN, Hilary A Primary Care Provi lazarus CEE TURNER Attending Unavailable HILARY AVILES A Referring Unavailable FRANK AVILESITH A Primary Care Unavailable RAULITO JIMENEZ Attending Unavailable FRANK AVILESITH A Referring Unavailable TRACI, HILARY A Primary Care Unavailable FRANK AVILESITH A Referring Unavailable TRACI HILARY A Primary Care Unavailable MIGUEL ANGEL HERNANDEZ Referring Unavailable TRACI, HILARY A Primary Care Unavailable FRANK AVILESITH A Attending Unavailable FRANK AVILESITH A Referring Unavailable TRACI, HILARY A Primary Care Unavailable TRACI HILARY A Attending Unavailable TRACI, HILARY A Referring Unavailable TRACI HILARY A Primary Care Unavailable SRAVAN FONTENOT Attending Unavailable HILARY AVILES A Referring Unavailable TRACI, HILARY A Primary Care Unavailable OZZIE, YAQUELIN Attending Unavailable COURTNEY, PARISH Attending Unavailable COURTNEY, PARISH Attending Unavailable OZZIE, YAQUELIN Attending Unavailable COURTNEY, PARISH Attending Unavailable COURTNEY, PARISH Attending Unavailable OZZIE, YAQUELIN Attending Unavailable ASAEL, TIERNEY Attending Unavailable COURTNEY, PARISH Attending Unavailable TRACI, HILARY A Primary Care [...] NORRIS Attending Unavailable SESAR KAY Admitting Unavailable PARISH VALDEZ Referring Unavailable TRACI, HILARY A Primary Care Unavailable [facility] Consulting Juana vailaMANUELITO Allen Consulting Unavailable SHARDA MONTIEL Consulting Unavailable [facility] Consulti ng Unavailable TRACI, HILARY A Primary Care Unavailable COURTNEY, PARISH R Referring Unavailable TRACI, HILARY A Referring Unavailable TRACI, HILARY A Primary Care Unavailable TRACI, HILARY A Primary Care Unavailable COURTNEY, PARISH R Referring Unavailable TRACI, HILARY A Primary Care Unavailable COURTNEY, PARISH R Referring Unavailable ANTOINE RUDOLPH Referring Unavailable TRACI, HILARY A Primary Care Unavailable CLARE PACHECO E Referring Unavailable TRACI, HILARY A Primary Care Unavailable ROBER BERNAL Attending Unavailable TARCI, HILARY A Primary Care Unavailable MOSTALES, VINITA Referring Unavailable TRACI, HILARY A Primary Care Unavailable POND, SHAWN Referring Unavailable TRACI, HILARY A Primary Care Unavailable LAURA WOO Referring Unavailable TRACI, HILARY A Primary Care Unavailable POND, SHAWN Referring Unavailable TRACI, HILARY A Primary Care Unavailable LORAINE CHAPMAN Attending Unavailable TRACI, HILARY A Primary Care Unavailable VINITA NUNES Referring Unavailable TRACI, HILARY A Primary Care Unavailable NORMA KINNEY Attending Unavailabl e TRACI, HILARY A Referring Unavailable TRACI, HILARY A Primary Care Unavailable AL-JUBOURI, BALDERRAMA A Attending Unavailvilma e TRACI, HILARY A Referring Unavailable TRACI, HILARY A Primary Care Unavailable TRACI, HILARY A Primary Care Unavailable SESAR KAY Admitting Unavailable KAYSESAR TORRES Attending Unavailable TRACI, HILARY A Primary Care Unavailable AL-JUBOURI, BALDERRAMA A Consulting UnavailIFTIKHAR Khan Consulting Unavailable NORMA KINNEY Attending UnavailSTEPHANIE Davidson Referring Unavailable TRACI, HILARY A Primary Care Unavailable TRACI, HILARY A Referring Unavailable TRACI, HILARY A Primary Care Unavailable SHARDA MONTIEL Attending Unavailable TRACI, HILARY A Referring Unavailable TRACI, HILARY A Primary Care Unavailable DRAGANADASHARDA SALOMON B Referring Unavailable TRACI, HILARY A Primary Care Unavailable TRACI, HILARY A Primary Care Unavailable KAYSESAR TORRES Admitting Unavailable KAYSESAR Attending Unavailable TRACI, HILARY A Primary Care Unavailable AL-JUBOURI, BALDERRAMA A Attending Unavailvilma AVILES, HILARY A Referring Unavailable TRACI, HILARY A Primary Care Unavailable JAYJAY CLAYTON Attending Unavailable SHARDA MONTIEL Referring Unavailable TRACI, HILARY A Primary Care Unavailable TRACI, HILARY A Referring Unavailable TRACI, HILARY A Primary Care Unavailable TRACI, HILARY A Referring Unavailable TRACI, HILARY A Primary Care Unavailable TRACI, HILARY A Referring Unavailable TRACI, HILARY A Primary Care Unavailable TRACI, HILARY A Referring Unavailable TRACI, HILARY A Primary Care Unavailable Allergies Allergy ClassificationReported Allergen(s)Allergy TypeDate of OnsetReaction(s) Facility (20 sources)Sertraline; Translations: [SERTRALINE]Drug [id number] Medic[facility] Current Medications MedicationDrug Class(es)DatesSig (Normalized)Sig (Original)[id number] 200 actuat albuterol 0.09 mg/actuat metered dose inhaler (16 sources)beta2-Adrenergic AgonistStart: 11-26-2021 End: 36-06-0539vxdz 2 puff(s) by inhalation every four hours as needed for wheezingalbuterol (PROVENTIL HFA;VENTOLIN HFA) 90 mcg/actuation inhaler Indications: Viral URI with cough Inhale 2 puffs every 4 (four) hours as needed for wheezing. 18 g 0 11/26/2021 02/20/2023 DiscontinuedStart: 01-22-2021 End: 46-35-8004clwf 2 puff(s) by inhalation every six hours as needed for wheezingalbuterol (PROVENTIL HFA;VENTOLIN HFA) 90 mcg/actuation inhaler Indications: Reactive airway disease with acute exacerbation, unspecified asthma severity, unspecified whether persistent , Shortness of breath , COVID-19 Inhale 2 puffs every 6 (six) hours as needed for wheezing or shortness of breath. 18 g 0 02/20/2023 Activeapixaban 5 mg oral tablet (20 sources)Factor Xa InhibitorStart: 86-68-4909cgsy 1 tablet by mouth in the morning, then take 1 tablet by mouth at bedtimeapixaban (ELIQUIS) 5 mg tablet Indications: Other acute pulmonary embolism without acute cor pulmonale (CMS- HCC) , Acute deep vein thrombosis (DVT) of distal end of right lower extremity (CMS-HCC) Take 1 tablet (5 mg total) by mouth in the morning and 1 tablet (5 mg total) before bedtime. 180 tablet 1 07/08/2024 ActiveStart: 06-17-2024 End: 47-10-3076behv 2 tablets by mouth twice daily, then take 1 tablet by mouth twice dailyapixaban (ELIQUIS DVT-PE TREAT 30D START) 5 mg (74 tabs) tablets,dose pack tablet Take 2 tablets bymouth twice daily for 7 days, then take 1 tablet twice daily 74 tablet 06/17/2024 08/02/2024 DiscontinuedStart: 44-71-4622cobz 2 tablets by mouth twice daily, then take 1 tablet by mouth twice dailyapixaban (ELIQUIS DVT-PE TREAT 30D START) 5 mg (74 tabs) tablets,dose pack tablet Take 2 tablets bymouth twice daily for 7 days, then take 1 tablet twice daily 74 tablet 06/17/2024 Activeascorbic acid 250 mg oral tablet (20 sources)Vitamin CStart: 02-08-5590wcqsoijz acid, vitamin C, (vitamin C) 250 mg tablet 250mg twice (in AM and PM) on Mondays, Wednesdays, and Fridays along with iron pills. 90 tablet 2 06/28/2024 ActiveStart: 05-08-2022 End: 94-10-7399mfca 1 tablet by mouth in the morningascorbic acid, vitamin C, (vitamin C) 250 mg tablet Take 1 tablet (250 mg total) by mouth in the morning. Take with iron.. 90 tablet 3 05/08/2022 08/20/2023 DiscontinuedazaTHIOprine 50 mg oral tablet (20 sources)Purine AntimetaboliteStart: 92-76-6655kcvd 4 tablets by mouth in the morningazaTHIOprine (IMURAN) 50 mg tablet Indications: Crohn's disease of both small and large intestine with intestinal obstruction (CMS-HCC) Take 4 tablets (200 mg total) by mouth in the morning. 120 tablet 09/13/2024 ActiveStart: 36-96-7781lnlq 4 tablets by mouth in the morningazaTHIOprine (IMURAN) 50 mg tablet Take 4 tablets (200 mg total) by mouth in the morning. 270 tablet 1 06/28/2024 ActiveStart: 09-07-2021 End: 42-52-7517ydjs 3 tablets by mouth in the morningazaTHIOprine (Imuran) 50 MG tablet TAKE 3 TABLETS BY MOUTH IN THE MORNING 05/06/2022 Activecholecalciferol 0.05 mg oral tablet (20 sources)Vitamin DStart: 07-07-9787qhsa 1 tablet by mouth in the morning cholecalciferol, vitamin D3, 2,000 units tablet Take 1 tablet (2,000 Units total) by mouth in the morning. 90 tablet 1 06/28/2024 ActiveStart: 06-15-2024 take 1 tablet by mouth in the morningcholecalciferol, vitamin D3, 2,000 units tablet Take 1 tablet (2,000 Units total) by mouth in the morning. 90 tablet 1 06/15/2024 ActiveStart: 40-59-5899gdfs 1 tablet by mouth in the morning cholecalciferol, vitamin D3, 2,000 units tablet Take 1 tablet (2,000 Units total) by mouth in the morning. 90 tablet 1 06/15/2024 ActiveStart: 06-15-2024 take 1 tablet by mouth in the morningcholecalciferol, vitamin D3, 2,000 units tablet Take 1 tablet (2,000 Units total) by mouth in the morning. 90 tablet 1 06/15/2024 ActiveStart: 20-33-3796jqqo 1 tablet by mouth in the morning cholecalciferol, vitamin D3, 2,000 units tablet Take 1 tablet (2,000 Units total) by mouth in the morning. 90 tablet 1 06/15/2024 ActiveStart: 06-15-2024 take 1 tablet by mouth in the morningcholecalciferol, vitamin D3, 2,000 units tablet Take 1 tablet (2,000 Units total) by mouth in the morning. 90 tablet 1 06/15/2024 ActiveStart: 99-45-7890euhw 1 tablet by mouth in the morning cholecalciferol, vitamin D3, 2,000 units tablet Take 1 tablet (2,000 Units total) by mouth in the morning. 90 tablet 1 06/15/2024 ActiveStart: 06-15-2024 take 1 tablet by mouth in the morningcholecalciferol, vitamin D3, 2,000 units tablet Take 1 tablet (2,000 Units total) by mouth in the morning. 90 tablet 1 06/15/2024 ActiveStart: 13-02-1178rdta 1 tablet by mouth in the morning cholecalciferol, vitamin D3, 2,000 units tablet Take 1 tablet (2,000 Units total) by mouth in the morning. 90 tablet 1 06/15/2024 ActiveStart: 01-27-2024 End: 31-52-1546nlal 1 capsule by mouth every weekcholecalciferol (VITAMIN D3) 50,000 units capsule Take 1 capsule (50,000 Units total) by mouth oncea week. 8 capsule 04/20/2024 05/06/2024 DiscontinuedStart: 01-26-2024 End: 07-56-1008fetx 1 capsule by mouth in the morningcholecalciferol (VITAMIN D3) 50,000 units capsule Take 1 capsule (50,000 Units total) by mouth in the morning. 8 capsule 01/26/2024 04/19/2024 DiscontinuedStart: 10-01-2021 End: 98-50-8952qvik 1 tablet by mouth in the morningcholecalciferol, vitamin D3, 5,000 units tablet Take 1 tablet (5,000 Units total) by mouth in the morning. 90 each 3 10/01/2021 08/20/2023 Discontinued End: 66-11-5867bmcunnqjiuhwhxy (Vitamin D-3) 25 MCG (1000 UT) capsule 1,000 Units. 10/18/2024 Discontinuedcyclobenzaprine hydrochloride 10 mg oral tablet (13 sources)Muscle RelaxantStart: 76-46-9082fvnx 1 tablet by mouth every eight hours as needed for muscle spasmscyclobenzaprine (FLEXERIL) 10 mg tablet Indications: Acute midline low back pain without sciatica Take 1 tablet (10 mg total) by mouth every 8 (eight) hours as needed for muscle spasms. 30 tablet 1 08/02/2024 Active1 ml EPINEPHrine 1 mg/ml injection (1 source)alpha-Adrenergic Agonist, beta-Adrenergic Agonist, CatecholamineStart: 02-06-2023 End: 37-65-6891LUAURZAcqot (ADRENALIN) 1 mg/mL injection FOR ANAPHYLAXIS 0.3 mg Ethinyl Estradiol / Ferrous fumarate / Norethindrone (2 sources)EstrogenStart: 11-22-2024 End: 72-54-3689csrwjxofmlisy-ethinyl estradiol (Aurovela FE 03/01) 1-20 MG-MCG tablet Indications: Menorrhagia withregular cycle Take 1 tablet by mouth Daily 28 tablet 2 11/22/2024 02/14/2025 Activeferric maltol (ACCRUFER) 30 mg capsule (12 sources)Start: 15-89-4989rcgx 1 capsule by mouth in the morningferric maltol (ACCRUFER) 30 mg capsule Indications: Iron deficiency anemia, unspecified iron deficiency anemia type Take 30 mg by mouth in the morning and 30 mg before bedtime. 60 capsule 3 08/03/2024 Activeferrous sulfate 325 mg delayed release oral tablet (15 sources)Start: 63-21-3086atoqpkn sulfate 325 (65 FE) mg EC tablet 325mg twice (in AM and PM) on Mondays, Wednesdays, and Fridays. Take with vitamin C. 30 tablet 5 06/28/2024 Activefolic acid 1 mg oral tablet (20 sources)Start: 07-44-2170bmom 1 tablet by mouth in the morningfolic acid (FOLVITE) 1 mg tablet Indications: Iron deficiency anemia, unspecified Take 1 tablet (1 mg total) by mouth in the morning. 11/12/2024 ActiveStart: 08-02-2021 End: 82-32-2939cvzc 1 tablet by mouth in the morningfolic acid (Folvite) 1 MG tablet Take 1,000 mcg by mouth in the morning. 05/07/2022 Zsxuxy30 hr guaiFENesin 600 mg extended release oral tablet (1 source)Start: 02-20-2023 End: 46-36-0673vlip 1 tablet by mouth onceguaiFENesin (MUCINEX) 600 mg tablet extended release 12hr Indications: Reactive airway disease withacute exacerbation, unspecified asthma severity, unspecified whether persistent , Sinusitis, unspecified chronicity, unspecified location Take 1 tablet (600 mg total) by mouth every 12 (twelve) hoursfor 7 days. 14 tablet 0 02/20/2023 02/27/2023 ActiveinFLIXimab-axxq 100 mg injection (20 sources)Tumor Necrosis Factor Stephanie End: 60-41-6859wyOQHCbvnr-axxq (AVSOLA) 100 mg injection Indications: Crohn's disease Infuse 5 mg/kg into a venouscatheter every 6 (six) weeks Indications: Crohn's disease. ActiveinFLIXimab-dyyb (Inflectra) 100 MG injection Infuse 5 mg/kg into a venous catheter Active End: 40-62-9896dnDHXYakzm (REMICADE) 10 mg/mL injection Infuse 5 mg/kg into a venous catheter See Admin Instructions. Every 6 weeks 05/06/2024 Discontinued End: 79-61-1968ucYNBGcbdd-dyyb (INFLECTRA) 100 mg injection Indications: Crohn's disease Infuse 5 mg/kg into a venous catheter once Indications: Crohn's disease. Every 6 weeks 05/06/2024 Discontinued End: 75-99-1146uyKIMQkjoc-dyyb (INFLECTRA) 100 mg injection Indications: Crohn's disease Infuse 5 mg/kg into a venous catheter See Admin Instructions Indications: Crohn's disease. Every 8 weeks 08/20/2023 Discontinuedmagnesium oxide 400 mg oral tablet (5 sources)Start: 01-23-2024 End: 22-87-5425cxmj 1 tablet by mouth once dailymagnesium oxide (Mag-Ox) 400 MG tablet Indications: headache in first trimester Take 1 tablet (400 mg) by mouth Daily 30 tablet 6 01/23/2024 02/22/2024 ActivemethylPREDNISolone 125 mg injection (1 source)CorticosteroidStart: 02-06-2023 End: 11-29-8853xmhepvVMWSHYQsvgqq sod suc(PF) (Solu-MEDROL) injection 125 mg mupirocin 0.02 mg/mg topical ointment (2 sources)RNA Synthetase Inhibitor AntibacterialStart: 22-62-4622mjvqelcbc (BACTROBAN) 2 % ointment Indications: Open wound of nasal cavity, initial encounter Apply1 Application topically 3 (three) times a day. 22 g 11/12/2024 Activenitrofurantoin, macrocrystals 25 mg / nitrofurantoin, monohydrate 75 mg oral capsule (1 source)Nitrofuran AntibacterialStart: 05-01-2024 End: 64-14-6585utwg 1 capsule by mouth in the morning, then take 1 capsule by mouth at bedtimenitrofurantoin, macrocrystal-monohydrate, (MACROBID) 100 mg capsule Take 1 capsule (100 mg total) by mouth in the morning and 1 capsule (100 mg total) before bedtime. Take for 7 days. 05/01/2024 05/08/2024 Active ondansetron 4 mg disintegrating oral tablet (17 sources)Serotonin-3 Receptor AntagonistStart: 12-29-2023 End: 83-31-1376pbcl 1 tablet by mouth every six hours as needed for nausea and vomiting and nausea and nauseaondansetron ODT (Zofran-ODT) 4 MG disintegrating tablet Indications: Nausea Take 1 tablet (4 mg) bymouth every 6 (six) hours if needed for nausea or vomiting 30 tablet 3 12/29/2023 01/28/2024 Activetake 1 tablet by mouth every eight hours as needed for nausea and vomitingondansetron (ZOFRAN) 4 mg tablet Take 1 tablet (4 mg total) by mouth every 8 (eight) hours as needed for nausea or vomiting. Activephenazopyridine hydrochloride 100 mg oral tablet (2 sources)Start: 07-15-2024 End: 42-02-7197npko 1 tablet by mouth three times daily as needed for muscle spasmsphenazopyridine (Pyridium) 100 MG tablet Indications: 6 weeks follow-up Take 1 tablet (100 mg) by mouth 3 (three) times a day as needed for bladder spasms for up to 3 days 10 tablet 07/15/2024 07/18/2024 Active polysaccharide iron complex 391 mg oral capsule (14 sources)Start: 05-03-2024 End: 35-58-3296ldgd 1 capsule by mouth once dailyiron polysaccharides (ProFe) 391.3 (180 Fe) MG capsule Indications: Anemia during in second trimester Take 1 capsule (391.3 mg) by mouth Daily 30 capsule 6 05/03/2024 06/02/2024 ActiveStart: 05-03-2024 End: 69-87-4831cseetocjgidvyd iron complex 180 mg iron capsule Take 391.3 mg by mouth in the morning. 05/03/2024 06/02/2024 Activeprenatal vit no.124/iron/folic ( VITAMIN ORAL) (13 sources)take 1 tablet by mouth in the morningprenatal vit no.124/iron/folic ( VITAMIN ORAL) Take 1 tablet by mouth in the morning. Active Completed/Discontinued Medications MedicationDrug Class(es)DatesSig (Normalized)Sig (Original)acetaminophen 325 mg / HYDROcodone bitartrate 5 mg oral tablet (18 sources)Opioid AgonistStart: 04-20-2024 End: 98-42-5879rkjl 1 tablet by mouth every six hours for painHYDROcodone- acetaminophen (Owendale) 5-325 MG tablet Indications: Abdominal pain, unspecified abdominal location , Crohn's disease with complication, unspecified gastrointestinal tract location (HCC) Take 1 tablet by mouth every 6 (six) hours if needed for moderate pain or severe pain for up to 15 doses 15 tablet 04/20/2024 10/18/2024 Discontinuedbenzonatate 100 mg oral capsule (12 sources)Non-narcotic AntitussiveStart: 11-26-2021 End: 47-83-7160itmt 1 capsule by mouth every eight hoursbenzonatate (TESSALON PERLES) 100 mg capsule Take 1 capsule (100 mg total) by mouth every 8 (eight) hours. 21 capsule 11/26/2021 08/20/2023 Discontinuedcitalopram 20 mg oral tablet (20 sources)Serotonin Reuptake InhibitorStart: 09-17-2023 End: 76-52-0388esro 1.5 tablets by mouth in the morningcitalopram (CeleXA) 20 mg tablet Indications: Current moderate episode of major depressive disorder without prior episode (CMS-HCC) Take 1.5 tablets (30 mg total) by mouth in the morning. 30 tablet 05/06/2024 DiscontinuedStart: 08-20-2023 End: 95-64-6182rzcf 1 tablet by mouth in the morningcitalopram (CeleXA) 20 mg tablet Indications: Anxiety Take 1 tablet (20 mg total) by mouth in the morning. 30 tablet 2 08/20/2023 09/17/2023 DiscontinueddexAMETHasone (DECADRON) 20 mg in sodium chloride 0.9 % (PVC) 50 mL IVPB (1 source)Start: 08-25-2024 End: 94-82-654450 mg, intravenous, at 208 mL/hr, Administer over 15 Minutes, Once, On Fri08/25/24 at 0900, For 1 dose, Prior to test dose. May alter blood glucose or insulin requirements.ferric carboxymaltose (INJECTAFER) 750 mg in sodium chloride 0.9 % 100 mL IVPB (1 source)Start: 02-06-2023 End: 70-93-7584nabmfo carboxymaltose (INJECTAFER) 750 mg in sodium chloride 0.9 % 100 mL IVPBfolic acid 0.4 mg / vitamin b12 1 mg sublingual tablet (20 sources)Vitamin B12 End: 88-63-1160Gmhlxbbvs Combinations (B-12) 100-5000 MCG sublingual tablet B12 10/18/2024 Discontinued End: 25-50-6891qrgmknpzlyicgn/folic acid (vitamin Q23-bkhdq acid) 1,000-400 mcg lozenge B12 08/20/2023 DiscontinuedinFLIXimab-axxq (AVSOLA) 5 mg/kg = 361 mg in sodium chloride 0.9 % (PVC) 250 mL IVPB (1 source)Start: 08-09-2024 End: 79-69-2752662 mg (rounded from 360.5 mg = 5 mg/kg 72.1 kg), intravenous, Once, On Fri08/09/24 at 1115, For 1 dose, Infuse over at least 2 hours: For 250 mL total volume: 10 mL/hr x 15 min, then 20 mL/hr x 15 min, then 40 mL/hr x 15 min, then 80 mL/hr x 15 min, then 150 mL/hr x 30 min, then 250 mL/hr until inf usion complete. Adjust rates respectively for other volumes. Look-alike/sound-alike medication - verify indication for use. Administer using 0.2 - 1.2 micron filter.inFLIXimab-axxq (AVSOLA) 5 mg/kg = 400 mg in sodium chloride 0.9 % (PVC) 250 mL IVPB (3 sources)Start: 12-15-2024 End: 11-31-0555967 mg (rounded from 381.5 mg = 5 mg/kg 76.3 kg), intravenous, Once, On Fri12/15/24 at 1430, For 1 dose, Infuse over at least 2 hours: For 250 mL total volume: 10 mL/hr x 15 min, then 20 mL/hr x 15 min, then 40 mL/hr x 15 min, then 80 mL/hr x 15 min, then 150 mL/hr x 30 min, then 250 mL/hr until inf usion complete. Adjust rates respectively for other volumes. Look-alike/sound-alike medication - verify indication for use. Administer using 0.2 - 1.2 micron filter.Start: 11-03-2024 End: 80-43-2337991 mg (rounded from 383.5 mg = 5 mg/kg 76.7 kg), intravenous, Once, On Fri11/03/24 at 1345, For 1 dose, Infuse over at least 2 hours: For 250 mL total volume: 10 mL/hr x 15 min, then 20 mL/hr x 15 min, then 40 mL/hr x 15 min, then 80 mL/hr x 15 min, then 150 mL/hr x 30 min, then 250 mL/hr until inf usion complete. Adjust rates respectively for other volumes. Look-alike/sound-alike medication - verify indication for use. Administer using 0.2 - 1.2 micron filter.Start: 09-22-2024 End: 48-68-7110278 mg (rounded from 366 mg = 5 mg/kg 73.2 kg), intravenous, Once, On Fri09/22/24 at 1415, For 1 dose, Infuse over at least 2 hours: For 250 mL total volume: 10 mL/hr x 15 min, then 20 mL/hr x 15 min, then 40 mL/hr x 15 min, then 80 mL/hr x 15 min, then 150 mL/hr x 30 min, then 250 mL/hr until infus ion complete. Adjust rates respectively for other volumes. Look-alike/sound-alike medication - verify indication for use. Administer using 0.2 - 1.2 micron filter.inFLIXimab-axxq (AVSOLA) 5 mg/kg = 400 mg in sodium chloride 0.9 % 250 mL IVPB (4 sources)Start: 06-28-2024 End: 84-66-5314385 mg (rounded from 367.5 mg = 5 mg/kg 73.5 kg), intravenous, Once, On Fri06/28/24 at 1330, For 1 dose, Infuse over at least 2 hours: For 250 mL total volume: 10 mL/hr x 15 min, then 20 mL/hr x 15 min, then 40 mL/hr x 15 min, then 80 mL/hr x 15 min, then 150 mL/hr x 30 min, then 250 mL/hr until inf usion complete. Adjust rates respectively for other volumes. Look-alike/sound-alike medication - verify indication for use. Administer using 0.2 - 1.2 micron filter.Start: 05-24-2024 End: 84-23-3936526 mg (rounded from 431.5 mg = 5 mg/kg 86.3 kg), intravenous, Once, On Fri05/24/24 at 1130, For 1 dose, Infuse over at least 2 hours: For 250 mL total volume: 10 mL/hr x 15 min, then 20 mL/hr x 15 min, then 40 mL/hr x 15 min, then 80 mL/hr x 15 min, then 150 mL/hr x 30 min, then 250 mL/hr until inf usion complete. Adjust rates respectively for other volumes. Look-alike/sound-alike medication - verify indication for use. Administer using 0.2 - 1.2 micron filter.Start: 04-19-2024 End: 35-95-8638369 mg (rounded from 417.5 mg = 5 mg/kg 83.5 kg), intravenous, Once, On Fri04/19/24 at 1115, For 1 dose, Infuse over at least 2 hours: For 250 mL total volume: 10 mL/hr x 15 min, then 20 mL/hr x 15 min, then 40 mL/hr x 15 min, then 80 mL/hr x 15 min, then 150 mL/hr x 30 min, then 250 mL/hr until inf usion complete. Adjust rates respectively for other volumes. Look-alike/sound-alike medication - verify indication for use. Administer using 0.2 - 1.2 micron filter.Start: 03-08-2024 End: 46-91-3012375 mg (rounded from 403.5 mg = 5 mg/kg 80.7 kg), intravenous, Once, On Fri03/08/24 at 1100, For 1 dose, Infuse over at least 2 hours: For 250 mL total volume: 10 mL/hr x 15 min, then 20 mL/hr x 15 min, then 40 mL/hr x 15 min, then 80 mL/hr x 15 min, then 150 mL/hr x 30 min, then 250 mL/hr until inf usion complete. Adjust rates respectively for other volumes. Look-alike/sound-alike medication - verify indication for use. Administer using 0.2 - 1.2 micron filter.inFLIXimab-dyyb (INFLECTRA) 400 mg in sodium chloride 0.9 % 250 mL IVPB (3 sources)Start: 08-04-2023 End: mg, intravenous, Once, On Fri08/04/23 at 1330, For 1 dose, Infuse over at least 2 hours: For 250 mL total volume: 10 mL/hr x 15 min, then 20 mL/hr x 15 min, then 40 mL/hr x 15 min, then 80 mL/hr x 15 min, then 150 mL/hr x 30 min, then 250 mL/hr until infusion complete. Adjust rates respectivelyfor other volumes. Look-alike/sound-alike medication - verify indication for use. Administer using 0.2 - 1.2 micron filter.Start: 04-21-2023 End: 47-41-3148ygUJXRpdxc-dyyb (INFLECTRA) 400 mg in sodium chloride 0.9 % 250 mL IVPBStart: 02-17-2023 End: 11-49-4811alUXEHzzzb-dyyb (INFLECTRA) 400 mg in sodium chloride 0.9 % 250 mL IVPBinFLIXimab-dyyb (INFLECTRA) 5 mg/kg = 400 mg in sodium chloride 0.9 % 250 mL IVPB (3 sources)Start: 12-12-2023 End: mg (rounded from 381 mg = 5 [...] min, then 150 mL/hr x 30 min, ruxg552 mL/hr until infusion complete. Adjust rates respectively for other volumes. Look-alike/sound-alike medication - verify indication for use. Administer using 0.2 - 1.2 micron filter.Start: 10-31-2023 End: mg (rounded from 379 mg = 5 [...] min, then 150 mL/hr x 30 min, mmco223 mL/hr until infusion complete. Adjust rates respectively for other volumes. Look-alike/sound-alike medication - verify indication for use. Administer using 0.2 - 1.2 micron filter.Start: 09-15-2023 End: mg (rounded from 366.5 mg = 5 mg/kg 73.3 kg), intravenous, Once, [...] use. Administer using 0.2 - 1.2 micron filter.iron dextran complex (INFED) 25 mg in sodium chloride 0.9 % (PVC) 50 mL IVPB (1 source)Start: 08-25-2024 End: mg, intravenous, at 101 mL/hr, Administer over 30 Minutes, Once, On Fri08/25/24 at 0915, For 1 dose, Test dose. Monitor patient for hypersensitivity reactions. AVOID the use of H1 antihistamines, such as diphenhydramine, as this may worsen hypersensitivity reactions. Have resuscitation equipmentand medications available.iron dextran complex (INFED) 975 mg in sodium chloride 0.9 % (PVC) 500 mL IVPB (1 source)Start: 08-25-2024 End: 82-80-6633418 mg, intravenous, at 520 mL/hr, Administer over 1 Hours, Once, On Fri08/25/24 at 1045, For 1 dose, Given 1 hour after test dose. A one hour infusion time can only be used for doses 1,000 mg or below. Monitor patient for hypersensitivity reactions. AVOID the use of H1 antihistamines, such as diphe nhydramine, as this may worsen hypersensitivity reactions. Have resuscitation equipment and medications available.labetalol hydrochloride 100 mg oral tablet (8 sources)beta-Adrenergic BlockerStart: 05-06-2024 End: 55-75-3895mgxanxpcf (Normodyne) 100 MG tablet 05/06/2024 10/18/2024 DiscontinuedStart: 05-06-2024 End: 98-42-2556oxmh 1 tablet by mouth once in the morning, then take 1 tablet by mouth at bedtimelabetaloL (NORMODYNE) 100 mg tablet Indications: HTN complicating peripregnancy, antepartum, secondtrimester , 26 weeks gestation of Take 1 tablet (100 mg total) by mouth in the morning and 1 tablet (100 mg total) before bedtime. Do all this for 30 days. 60 tablet 05/06/2024 06/05/2024 Bojjpebmh2001 ml sodium chloride 9 mg/ml injection (16 sources)Start: 12-15-2024 End: 23-43-7889ymxx 25 mL intravenously every hour as qmqedx30 mL/hr, intravenous, Continuous PRN, When mainline IV needed., Starting on Fri12/15/24 at 1355, Match IVF to base solution of product being administered to ensure compatibility.Start: 11-03-2024 End: 95-36-2099ldhj 25 mL intravenously every hour as exkevn03 mL/hr, intravenous, Continuous PRN, When mainline IV needed., Starting on Fri11/03/24 at 1314, Match IVF to base solution of product being administered to ensure compatibility.Start: 09-22-2024 End: 92-20-1772pwcm 25 mL intravenously every hour as nbwqot60 mL/hr, intravenous, Continuous PRN, When mainline IV needed., Starting on Fri09/22/24 at 1334, Match IVF to base solution of product being administered to ensure compatibility.Start: 08-25-2024 End: 92-23-2661mmow 25 mL intravenously every hour as gtotwa97 mL/hr, intravenous, Continuous PRN, When mainline IV needed., Starting on Fri08/25/24 at 0859, Match IVF to base solution of product being administered to ensure compatibility.Start: 08-09-2024 End: 18-47-6270ixae 25 mL intravenously every hour as mL/hr, intravenous, Continuous PRN, When mainline IV needed., Starting on Fri08/09/24 at 1041, Match IVF to base solution of product being administered to ensure compatibility.Start: 06-28-2024 End: 99-14-1270nwmn 25 mL intravenously every hour as svuikw99 mL/hr, intravenous, Continuous PRN, When mainline IV needed., Starting on Fri06/28/24 at 1250, Match IVF to base solution of product being administered to ensure compatibility.Start: 05-24-2024 End: 31-72-2116yomg 25 mL intravenously every hour as mL/hr, intravenous, Continuous PRN, When mainline IV needed., Starting on Fri05/24/24 at 1057, Match IVF to base solution of product being administered to ensure compatibility.Start: 04-19-2024 End: 35-55-7192dqeg 25 mL intravenously every hour as jymdpa00 mL/hr, intravenous, Continuous PRN, When mainline IV needed., Starting on Fri04/19/24 at 1042, Match IVF to base solution of product being administered to ensure compatibility.Start: 03-08-2024 End: 83-30-2996vokp 25 mL intravenously every hour as exyvwe64 mL/hr, intravenous, Continuous PRN, When mainline IV needed., Starting on Fri03/08/24 at 1018, Match IVF to base solution of product being administered to ensure compatibility.Start: 91-27-4225inqa 25 mL intravenously every hour as mL/hr, intravenous, Continuous PRN, When mainline IV needed., Starting on Fri10/31/23 at 0951, Match IVF to base solution of product being administered to ensure compatibility.Start: 09-15-2023 End: 98-31-1474jkzi 25 mL intravenously every hour as lydbyx65 mL/hr, intravenous, Continuous PRN, When mainline IV needed., Starting on Fri09/15/23 at 1133, Match IVF to base solution of product being administered to ensure compatibility.Start: 08-04-2023 End: 28-88-5138lbxc 25 mL intravenously every hour as mL/hr, intravenous, Continuous PRN, When mainline IV needed., Starting on Fri08/04/23 at 1324, Match IVF to base solution of product being administered to ensure compatibility.Start: 04-21-2023 End: 80-19-0311cirwbt chloride 0.9 % infusionStart: 02-17-2023 End: 42-48-1398dygmtl chloride 0.9 % infusionStart: 02-06-2023 End: 38-72-6858hekiwy chloride 0.9 % bolusvitamin b12 1 mg oral tablet (19 sources)Vitamin B90Qigvk: 04-20-2024 End: 16-34-9862xtgy 1 tablet by mouth in the morningcyanocobalamin (vitamin B- 12) 1000 MCG tablet Take 1 tablet (1,000 mcg total) by mouth in the morning. 90 tablet 3 04/20/2024 05/06/2024 DiscontinuedStart: 05-28-2020 End: 93-42-6144hwik 2 tablets by mouth in the morningvitamin B-12 1000 MCG tablet Take 2 tablets (2,000 mcg total) by mouth in the morning. 90 tablet 2 0 02/20/2023 ActiveWESTAB PLUS 27 mg iron- 1 mg tablet (12 sources)Start: 06-07-2022 End: 65-80-7102SDSCQC PLUS 27 mg iron- 1 mg tablet 06/07/2022 08/20/2023 DiscontinuedStart: 06-48-5168PCFJCF PLUS 27 mg iron- 1 mg tablet 06/07/2022 ActiveStart: 52-91-2118WMMZKM PLUS 27 mg iron- 1 mg tablet Problems Active Problems Problem ClassificationProblemDateDocumented DateEpisodic/ChronicAnxiety disorders (20 sources)Anxiety; Translations: [Anxiety disorder, unspecified]Onset: 13-15-578483986365-04-8260SpjxxfoYwafik (1 source)Reactive airway disease; Translations: [Unspecified asthma with (acute) exacerbation]93-21-7971MvrfthjZbfuagymdam and hemorrhagic disorders (2 sources)Thrombocytopenic disorder; Translations: [Thrombocytopenia, unspecified]Onset: 632795-83-1557MulorweNifxnlrtqi and other anemia (20 sources)Iron deficiency anemia due to blood loss; Translations: [Iron deficiency anemia secondary to blood loss (chronic)]Onset: ChronicDeficiency and other anemia (2 sources)Iron deficiency anemia secondary to blood loss (chronic); Translations: [Iron deficiency anemia secondary to blood loss (chronic)]Onset: 12-96-9277ApqoenpR Codes: Fall (1 source)FallOnset: 71-69-9657Cckchcdla hypertension (2 sources)Hypertensive disorder; Translations: [Essential (primary) hypertension]Onset: 406674-20-5588RavynxeGrhftwcggzny complicating ; childbirth and the puerperium (20 sources)Hypertension complicating ; Translations: [Unspecified maternal hypertension, second trimester]Onset: 05-06-2024 Resolved: 221403-97-6260EbqkqlsRbikmfqymxlox and screening for infectious disease (3 sources)Encounter for screening for human papillomavirus (HPV); Translations: [Exposure to sexually transmissible disorder]Onset: 183166-84-5445Pqwflvfo Malaise and fatigue (1 source)Fatigue; Translations: [Chronic fatigue, unspecified]10-87-0498Ldnynfs Menstrual disorders (3 sources)Missed period; Translations: [Irregular menstruation, unspecified] 36-40-4602MyolhbmVoom disorders (20 sources)Reactive depression (situational); Translations: [Major depressive disorder, single episode, unspecified]Onset: 879667-87-7318RlbgcyyMxee wounds of head; neck; and trunk (2 sources)Open wound of nasal cavity; Translations: [Unspecified open wound of nose, initial encounter]Onset: 698515-63-4933DgiqmqygDhtnl aftercare (4 sources)Patient encounter status; Translations: [Encounter for therapeutic drug level monitoring]03-56-6598PsvdqnbwNciae aftercare (2 sources)Surgical follow-up; Translations: [Encounter for follow-up examination after completed treatment for conditions other than malignant neoplasm]85-17-6092ZzdtcojfMfivc complications of (20 sources)Anemia in mother complicating , childbirth AND/OR puerperium; Translations: [Anemia complicating , unspecified trimester] Onset: 435016-76-5968KgkqtarXzbcb complications of (1 source)Anemia complicating , unspecified trimester; Translations: [Anemia complicating ,unspecified trimester]Onset: 71-40-8747Lrmwvun Other complications of (1 source)Headache; Translations: [Other specified related conditions, first trimester]79-89-7976YacnsvujVfcrs complications of (2 sources)H/O: ; Translations: [Supervision of with other poor reproductive or obstetric history, unspecified trimester]50-00-6794Oxhkqhhk Other female genital disorders (1 source)Vaginal bleedingOnset: 49-91-5244PovkrvcIvbuc female genital disorders (2 sources)Vaginal discharge; Translations: [Other specified noninflammatory disorders of vagina]90-78-2142TdlqtxdwYrmfj gastrointestinal disorders (20 sources)Malabsorption - iron; Translations: [Intestinal malabsorption, unspecified]Onset: 996988-13-8465UbpxizgDlzia gastrointestinal disorders (2 sources)Intestinal malabsorption, unspecified; Translations: [Intestinal malabsorption, unspecified]Onset: 70-09-7158NullmbaZifjg gastrointestinal disorders (2 sources)History of Crohns disease; Translations: [Personal history of other diseases of the digestive system]29-74-3213TbtfvcqeLewfl inflammatory condition of skin (20 sources)Scalp psoriasis; 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, unspecified]Onset: 851703-20-3149ShbjjmqZozvl injuries and conditions due to external causes (1 source)AbrasionOnset: 55-20-9675GquknzmiAolla and delivery including normal (16 sources); Translations: [Encounter for supervision of normal , unspecified, unspecified trimester]50-51-0445PdiqsdwwOkcim upper respiratory infections (1 source)Sinusitis; Translations: [Chronic sinusitis, unspecified]02-20-2023 ChronicPhlebitis; thrombophlebitis and thromboembolism (2 sources)Acute deep venous thrombosis of right calf; Translations: [Acute embolism and thrombosis of unspecified deep veins of right distal lower extremity]Onset: 119934-22-1912BmtlkcebPlfoxkmh enteritis and ulcerative colitis (20 sources)Crohn's disease of small AND large intestines; Translations: [Crohn's disease of both small and large intestine with intestinal obstruction] Onset: 000437-05-4063TxhrocbOivuiosh codes; unclassified (2 sources)Gestation period, 15 weeks; Translations: [15 weeks gestation of ]40-86-0707OufqwlvcSvuhjtij codes; unclassified (2 sources)Gestation period, 19 weeks; Translations: [19 weeks gestation of ]21-01-1964FdbgpontVuogsjhl codes; unclassified (4 sources)Gestation period, 23 weeks; Translations: [23 weeks gestation of ]33-35-4182OpxjrhlfRmwwhecx codes; unclassified (2 sources)Gestation period, 26 weeks; Translations: [26 weeks gestation of ]28-75-1545PzddhkriFlbrxcut codes; unclassified (2 sources)Gestation period, 27 weeks; Translations: [27 weeks gestation of ]70-94-3399LmjpvzufVbidxohm codes; unclassified (2 sources)Gestation period, 29 weeks; Translations: [29 weeks gestation of ]27-24-4600AjhvzolgQthkmpjt codes; unclassified (2 sources)History of excision of small intestine; Translations: [Acquired absence of other specified parts ofdigestive tract]85-66-9517PxkuwmayAzxxfycb codes; unclassified (1 source)H/O: severe pre-eclampsia; Translations: [Personal history of other complications of , childbirth and the puerperium]36-12-6807Duspudec Unclassified (1 source)hospital dischargeOnset: 75-85-6892Jenildsssyoo (1 source)PaperworkOnset: 53-67-9737Bntvgrxfmkar (2 sources)Low back pain, unspecified; Translations: [Low back pain, unspecified]Onset: 69-36-7699Ifrwuqjfnqvc (1 source)Er Follow-upOnset: 36-11-9252Maiupqkrwovx (2 sources)Outpatient InfusionOnset: 70-43-6567Fgcmeewkmhpj (1 source)Constipation, Early PregnancyOnset: 28-48-3667Bexmrpnmpujm (1 source)Post-opOnset: 06-14-2024 Past or Other Problems Problem ClassificationProblemDateDocumented DateEpisodic/ChronicAbdominal pain (20 sources)Abdominal pain; Translations: [Unspecified abdominal pain]Onset: 05-30-2024 Resolved: 628960-97-3703LrsjuqdyZqyiapapug and other anemia (20 sources)Microcytic anemia; Translations: [Iron deficiency anemia, unspecified]Onset: 577212-17-0704PikqasopMsqoqqlqou and other anemia (20 sources)Anemia; Translations: [Anemia, unspecified]Onset: 07-02-2019 62-88-9765VloieoguPmrqhkrytw and other anemia (20 sources)Iron deficiency anemia; Translations: [Iron deficiency anemia, unspecified]Onset: 083300-19-0586FjbymdhtMxcpigbwni and other anemia (3 sources)Iron deficiency anemia, unspecified; Translations: [Iron deficiency anemia, unspecified]Onset: 05-13-0944BqyfpqlcT Codes: Fall (1 source)Fall (on) (from) unspecified stairs and steps, initial encounter; Translations: [Fall (on) (from) unspecified stairs and steps, initial encounter] Onset: 53-17-1694AgugzgskHquoekhdtr obstruction without hernia (20 sources)Intestinal obstruction; Translations: [Unspecified intestinal obstruction, unspecified as to partial versus complete obstruction]Onset: 10-17-2017 Resolved: 694339-86-4210VaocipypDdus disorders (20 sources)Mood disordersOnset: 09-17-2023 Resolved: 398577-97-9301Cjrygujtljq chest pain (1 source)Chest pain, unspecified; Translations: [Chest pain, unspecified]Onset: 94-32-9178NyyxecndQticdesxner deficiencies (20 sources)Cobalamin deficiency; Translations: [Deficiency of other specified B group vitamins]Onset: 598278-92-1407ZhaudhmrHmdyb aftercare (1 source)Encounter for follow-up examination after completed treatment for conditions other than malignant neoplasm; Translations: [Encounter for follow-up examination after completed treatment for conditionsother than malignant neoplasm]Onset: 04-49-2668BxyzmddbUiltt aftercare (1 source)Encounter for therapeutic drug level monitoring; Translations: [Encounter for therapeutic drug level monitoring]Onset: 91-71-1177TmvzvzntMefnv bone disease and musculoskeletal deformities (20 sources)Bone cyst of foot; Translations: [Other cyst of bone, unspecified ankle and foot]Onset: 11-11-2022 Resolved: 524371-94-7586ZnacpxfcFjmwz complications of (20 sources)Anemia; Translations: [Anemia complicating , unspecified trimester]Onset: 05-15-2017 Resolved: 141138-65-5016VdcrwshVxoed complications of (20 sources)History of fourth degree perineal laceration; Translations: [Supervision of with other poor reproductive or obstetric history, unspecified trimester]Onset: 06-21-2017 Resolved: 661357-19-6355LfnwhlkvFdqdz complications of (20 sources)History of gynecological disorder; Translations: [Supervision of with other poor reproductive or obstetric history, unspecified trimester]Onset: 06-21-2017 Resolved: 979038-55-4990JyimbakbNzpsx connective tissue disease (20 sources)Pain in both feet; Translations: [Pain in right foot]Onset: 228828-38-0759NsjopmfnSyjwz connective tissue disease (20 sources)Chronic pain of right foot; Translations: [Pain in right foot]Onset: 09-18-2022 Resolved: 419166-44-0389HiokmxtfJrsou connective tissue disease (1 source)Cramp in lower limb; Translations: [Cramp and spasm]97-54-6381Adbmegku Other connective tissue disease (1 source)Pain in leg, unspecified; Translations: [Pain in leg, unspecified] Onset: 43-82-0462FuizgmyyXadbt connective tissue disease (1 source)Pain in lower limbOnset: 39-38-1186WnvxmfhjAwcmw disorders of stomach and duodenum (20 sources)Internal duodenal fistula; 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]Onset: 06-04-2018 Resolved: 605239-62-4940NjtanwjhQlgha gastrointestinal disorders (20 sources)Diarrhea; Translations: [Diarrhea, unspecified]Onset: 10-17-2017 Resolved: 045982-15-1732JwtmsxanMtykt gastrointestinal disorders (20 sources)Personal history of other diseases of the digestive system; Translations: [Personal history of other diseases of digestive system]Onset: 273845-65-8458KhrznnrlSpdux gastrointestinal disorders (1 source)Constipation, unspecified; Translations: [Constipation, unspecified] Onset: 60-82-3057VioywkqsGpmgn gastrointestinal disorders (1 source)ConstipationOnset: 96-55-6375OwqykpadXqfgh lower respiratory disease (20 sources)Cough; Translations: [Cough]Onset: 12-20-2019 Resolved: 716846-87-1155RoaxxymzUhvcb lower respiratory disease (20 sources)Dyspnea; Translations: [Shortness of breath]Onset: 01-22-2021 Resolved: 006423-77-3474HczetjzaMdxem non-traumatic joint disorders (20 sources)Pain in left knee; Translations: [Pain in joint, lower leg]Onset: 12-23-2018 Resolved: 375264-25-7114NrxcbbbiGiuug screening for suspected conditions (not mental disorders or infectious disease) (9 sources)Encounter for screening for malignant neoplasm of cervix; Translations: [Patient encounter status]Onset: 05-19-5277OeydqsigErqqf upper respiratory disease (20 sources)Congestion of nasal sinus; Translations: [Nasal congestion]Onset: 12-21-2020 Resolved: 835616-03-1599KwtkfhhdJbyff upper respiratory infections (20 sources)Sore throat symptom; Translations: [Acute pharyngitis, unspecified] Onset: 12-20-2019 Resolved: 837277-67-9617BqfwaxfbNnpsthc cyst (1 source)Unspecified ovarian cyst, left side; Translations: [Unspecified ovarian cyst, left side]Onset: 42-77-6518TvfqgaxfHryjynzkx heart disease (20 sources)Pulmonary embolism; Translations: [Other pulmonary embolism without acute cor pulmonale]Onset: 714982-43-5766GkzrpzwgFsxwnahj codes; unclassified (20 sources)Difficulty sleeping ; Translations: [Sleep disorder, unspecified] Onset: 887915-94-4300NlxectwzQofuxyha codes; unclassified (1 source)Noncompliance with treatment; Translations: [Noncompliance]12-01-2023 EpisodicResidual codes; unclassified (10 sources)History of drug therapy; Translations: [Other specified postprocedural states]Onset: 544909-13-4854CqtfvlmhJpicfnqc codes; unclassified (1 source)Pain, unspecified; Translations: [Pain, unspecified]Onset: 05-30-2024 EpisodicResidual codes; unclassified (2 sources)26 weeks gestation of ; Translations: [26 weeks gestation of ]Onset: 03-90-4405RqqwdtauYvckxetv codes; unclassified (1 source)12 weeks gestation of ; Translations: [12 weeks gestation of ]Onset: 04-39-0351PtbwpagjVoqgfclzcrd; intervertebral disc disorders; other back problems (19 sources)Low back pain; Translations: [Lumbar pain]Onset: 08-02-2024 30-09-7301AnyfqavnBkdmlxw and strains (15 sources)Low back strain; Translations: [Strain of muscle, fascia and tendon of lower back, initial encounter]Onset: 08-02-2024 Resolved: 564182-57-7158HmvxduvtNxsdf infection (20 sources)Disease caused by 2019-nCoV; Translations: [COVID-19]Onset: 01-22-2021 Resolved: 594410-24-8538Owpasnjz Results Test NameValueInterpretationReference RangeFacilityCBC WITH AUTO DIFFERENTIALon 67-51-8373MQCXNAFMLOF DIFFERENTIAL TYPEMANUAL DIFFERENTIALNormalProMedica Doctors Medical CenterComment on above:Order Comment: Abnormal CBC with auto diff reflexes to a manual diffResult Comment: This is an appended report. These results have been appended to a previously preliminary verified report.Performed By: #### CBCA #### [facility] ([address] [address] VIRCELLAVISION EOSINOPHILS ABSOLUTE COUNT BY MANUAL COUNT0.0 X10^9/LNormal0.0-0.4ProTexas Health Presbyterian [place] on above:Order Comment: Abnormal CBC with auto diff reflexes to a manual diffResult Comment: This is an appended report. These results have been appended to a previously preliminary verified report.Performed By: #### CBCA #### [facility] [address] [address] VIRCELLAVISION EOSINOPHILS PERCENT BY MANUAL COUNT1 %Normal [facility] on above:Order Comment: Abnormal CBC with auto diff reflexes to a manual diffResult Comment: This is an appended report. These results have been appended to a previously preliminary verified report. Performed By: #### CBCA #### [facility] ([address] [address] VIRCELLAVISION HYPOCHROMIA IN BLOOD BY LIGHT MICROSCOPY1+ NormalUC Health on above:Order Comment: Abnormal CBC with auto diff reflexes to a manual diffResult Comment: This is an appended report. These results have been appended to a previously preliminary verified report.Performed By: #### CBCA #### [facility] ([address] [address] VIRCELLAVISION LYMPHOCYTES ABSOLUTE COUNT BY MANUAL COUNT1.6 X10^9/LNormal1.0-3.5POhioHealth Riverside [facility] on above:Order Comment: Abnormal CBC with auto diff reflexes to a manual diffResult Comment: This is an appended report. These results have been appended to a previously preliminary verified report.Performed By: #### CBCA #### [facility] ([address] [place] [address] VIRCELLAVISION LYMPHOCYTES RELATIVE PERCENT BY MANUAL COUNT51 %NormalProTexas Health Presbyterian [place] on above:Order Comment: Abnormal CBC with auto diff reflexes to a manual diffResult Comment: This is an appended report. These results have been appended to a previously preliminary verified report.Performed By: #### CBCA #### [facility] ([address] [address] VIRCELLAVISION MONOCYTES ABSOLUTE COUNT BY MANUAL COUNT0.2 X10^9/LNormal0.0-0.9ProTexas [facility] [place] on above:Order Comment: Abnormal CBC with auto diff reflexes to a manual diffResult Comment: This is an appended report. These results have been appended to a previously preliminary verified report.Performed By: #### CBCA #### [facility] ([address] [address] VIRCELLAVISION MONOCYTES RELATIVE PERCENT BY MANUAL COUNT5 % NormalProParis Regional Medical CenterComcorewell health pennock hospital on above:Order Comment: Abnormal CBC with auto diff reflexes to a manual diffResult Comment: This is an appended report. These results have been appended to a previously preliminary verified report.Performed By: #### CBCA #### [facility] ([address] [address] VIRCELLAVISION NEUTROPHILS ABSOLUTE COUNT BY MANUAL COUNT1.4 X10^9/LLow1.5-6.6ProTexas Health [facility] [place] on above:Order Comment: Abnormal CBC with auto diff reflexes to a manual diffResult Comment: This is an appended report. These results have been appended to a previously preliminary verified report.Performed By: #### CBCA #### [facility] ([address] [address] VIRCELLAVISION NEUTROPHILS RELATIVE PERCENT BY MANUAL COUNT43 %NormalProParis Regional Medical CenterComcorewell health pennock hospital on above:Order Comment: Abnormal CBC with auto diff reflexes to a manual diffResult Comment: This is an appended report. These results have been appended to a previously preliminary verified report.Performed By: #### CBCA #### [facility] ([address] [place] [address] VIRErythrocyte distribution width (RBC) [Ratio]18.4 %High 11.5-15[facility] on above:Order Comment: Abnormal CBC with auto diff reflexes to a manual diffPerformed By: #### CBCA #### [facility] ([address] [address] VIRHematocrit (Bld) [Volume fraction]26.6 %Qyt19-10XbaWlnrpzHolzer Medical Center – JacksonComcorewell health pennock hospital on above:Order Comment: Abnormal CBC with auto diff reflexes to a manual diffPerformed By: #### CBCA #### [facility] ([address] [address] VIRHemoglobin (Bld) [Mass/Vol]8.3 g/dLLow11.7-15.5POhioHealth Marion General HospitalComcorewell health [facility] hospital on above:Order Comment: Abnormal CBC with auto diff reflexes to a manual diffPerformed By: #### CBCA #### [facility] ([address] [place] [address] VIRMCH (RBC) [Entitic mass]24.7 afIaw31-46WtjPwvjlsHolzer Medical Center – JacksonComcorewell health pennock hospital on above:Order Comment: Abnormal CBC with auto diff reflexes to a manual diffPerformed By: #### CBCA #### [facility] ([address] [address] VIRMCHC (RBC) [Mass/Vol]31.2 g/kZJfi53-95PwgYwilcuHolzer Medical Center – JacksonComcorewell health pennock hospital on above:Order Comment: Abnormal CBC with auto diff reflexes to a manual diffPerformed By: #### CBCA #### [facility] ([address] [place] [address] VIRMCV (RBC) [Entitic vol]79 qLQyx50-242MwkVowbgnHolzer Medical Center – JacksonComment on above:Order Comment: Abnormal CBC with auto diff reflexes to a manual diffPerformed By: #### CBCA #### [facility] ([facility]) [address] [place] [address] [place] [address] VIRPlatelet mean volume (Bld) [Entitic vol]9.2 fLNormal7-12 [facility] – JacksonComment on above:Order Comment: Abnormal CBC with auto diff reflexes to a manual diffPerformed By: #### CBCA #### [facility] ([facility]) [address] [place] [address] [place] [address] VIRPlatelets (Bld) [#/Vol]265 10*3/rPCjbviz107-803PekBabfaiHolzer Medical Center – JacksonComcorewell health pennock hospital on above:Order Comment: Abnormal CBC with auto diff reflexes to a manual diffPerformed By: #### CBCA #### [facility] ([address] [place] [address] VIRRBC COUNT3.36 X10^12/LLow3.8-5.2POhioHealth Marion General Hospital Comment on above:Order Comment: Abnormal CBC with auto diff reflexes to a manual diffPerformed By: #### CBCA #### [facility] ([facility]) [address] [place] [address] [place] [address] VIRWBC (Bld) [#/Vol]3.2 10*3/uLLow4-11[facility] – JacksonComcorewell health pennock hospital on above:Order Comment: Abnormal CBC with auto diff reflexes to a manual diffPerformed By: #### CBCA #### [facility] ([facility]) [address] [place] [address] [place] [address] VIRFERRITINon 15-05-3057Vxyhqisv [Mass/Vol]2 ng/oHOzv61-234 [facility] Memorial HospitalComment on above:Performed By: #### FERR ####[facility] (TT)[address], [place] [address] VIR FOLATEon 83-25-3103WVOAV ACID20.3 ng/mLNormal>5.8ProOhiohealth Southeastern Medical Center Comment on above:Performed By: #### FOLI ####[facility] ([facility])[address], [place] [address] VIRIRON AND TIBCon 69-88-3574Wmge [Mass/Vol]19 ug/uRGxg16-771AziPaeexkOhiohealth Southeastern Medical CenterComment on above:Performed By: #### FEPR ####[facility] ([facility])[address], [place] [address] VIRIRON QTTFZGC569 ug/yJXydrpq837-085XbiZlsqvn [place] HospitalComment on above:Performed By: #### FEPR ####[facility] ([facility])[address], [place] [address] VIRIRON SATURATION5 % EWNSPAEFGVVps89-32SswYqwljh [place] HospitalComment on above:Performed By: #### FEPR ####[facility] ([facility])[address], [place] [address] VIRVITAMIN B12on 13-24-6689Amsvysllb (Vitamin B12) [Mass/Vol]309 pg/fAUwoosd801-847PeoFkmkht [facility] Va Medical CenterComment on above: Performed By: #### B12 ####[facility] ([facility])[address] [address] VIRIGP,APTIMA HPV,AGE GDLNon 51-26-6623XMO GDLN ACOG TESTINGNote.NOMS HealthcareComment on above:TESTS RESULT FLAG UNITS REF RANGE LAB Clinician Provided Cytology Information Source.............Cervix;Endocervix No. of containers..01 ThinPrep Vial Age Algo ACOG Jade... 30-65 01 FLAG LEGEND: L-Low Normal,H-High Normal,LL-Alert Low,HH-Alert High <-Panic Low,>-Panic High,A-Abnormal,AA-Critical Abnormal Performed at: 01 =[address] [address] Leigh Ann Ortiz MD, HPV APTIMAPositiveAbnormalNegativeNOMS HealthcareComment on above:This nucleic acid amplification test detects fourteen high- risk HPV types (16,18,31,33,35,39,45,51,52,56,58,59,66,68) without differentiation. HPV GENOTYPE 16NegativeNegativeNOMS HealthcareHPV GENOTYPE 18,45NegativeNegative NOMS HealthcareComment on above:Performed at: =[address] [id number] Tanning Solution Maker: Leigh Ann Ortiz MD, Phone: [phone] Performed at: [address] [id number] [employer]anning Solution Maker: Leigh Ann Ortiz MD, Phone: [phone] IGP, APTIMA HPV, RFX 16/18,45Note.NOMS HealthcareComment on above:TESTS RESULT FLAG UNITS REF RANGE LAB DIAGNOSIS: 02 NEGATIVE FOR INTRAEPITHELIAL LESION OR MALIGNANCY. Specimen adequacy: 02 Satisfactory for evaluation. Endocervical and/or squamous metaplastic cells (endocervical component) are present. Performed by: Suleiman Danielson Special Agent (ASC) . 02 Note: Note 02 The Pap smear is a screening test designed to aid in the detection of premalignant and malignant conditions of the uterine cervix. It is not a diagnostic procedure and should not be used as the sole means of detecting cervical cancer. Both false-positive and false-negative reports do occur. Test Methodology: Note 02 This liquid based ThinPrep(R) pap test was screened with the use of an image guided system. HPV Genotype Reflex Note 02 Criteria met, see HPV Genotype results. FLAG LEGEND: L-Low Normal,H-High Normal,LL-Alert Low,HH-Alert High <-Panic Low,>-Panic High,A-Abnormal,AA-Critical Abnormal Performed at: [address] [address] Leigh Ann rOtiz MD, Interpretation and review of laboratory resultsAbnormalNOEastern Missouri State Hospital BRUSH-SPATULA CERVIX ENDOCERVIX CLINISYNCRusk Rehabilitation CenterBASIC METABOLIC PANELon 03-86-9306Mjire gap [Moles/Vol]5 mmol/LNormal5-15Pro[facility] Doctors Medical CenterComment on above:Performed By: #### BMP #### [facility]A [facility] ([facility]) [address] [place] [address]. [place] [address] VIRCalcium [Mass/Vol]9.4 mg/dLNormal8.5-10.5ProMedica Doctors Medical CenterComment on above:Performed By: #### BMP #### [facility]ITALA [facility] ([address] [place] [address] VIRChloride [Moles/Vol]109 mmol/WJwqulo01-062AfjSwjbvpParis Regional Medical CenterComment on above:Performed By: #### BMP #### [facility] ([address] [place] [address] VIRCO2 [Moles/Vol]25 mmol/IXizfpa54-68MnaPkymyi [facility]remont HospitalComment on above:Performed By: #### BMP #### [facility] ([address] [address] VIRCreatinine [Mass/Vol]0.72 mg/dLNormal0.40-1.00ProParis Regional Medical CenterComment on above:Result Comment: METHOD TRACEABLE TO IDMS STANDARDPerformed By: #### BMP #### [facility] ([address] [address] VIREGFR (CKD-EPI) NON-RACE DEPENDENT>^90Normal>=60ProParis Regional Medical CenterComment on above:Result Comment: eGFR not reported due to non- numeric value for Creatinine. Reported eGFR is based on the CKD-EPI 1 equation that does not use a race coefficient.Performed By: #### BMP #### [facility] ([address] [address] VIRGlucose [Mass/Vol]108 mg/dMXmqu69-03McsLwcrttParis Regional Medical CenterComment on above:Performed By: #### BMP #### [facility] ([address] [address] VIRPotassium [Moles/Vol]3.5 mmol/LNormal3.5-5.0ProParis Regional Medical CenterComment on above:Performed By: #### BMP #### [facility] ([address] [place] [address] VIRSodium [Moles/Vol]139 mmol/WUzuowd293-652HrwDtbgih [facility]remont HospitalComment on above:Performed By: #### BMP #### [facility] ([facility]) [address] [address] VIRUrea nitrogen [Mass/Vol]9 mg/dLNormal5-[facility] on above:Performed By: #### BMP #### [facility] ([facility]) [address] [place] [address] [place] [address] VIRCBC WITH AUTO DIFFERENTIALon 66-33-7759LQIFYLMYU ABSOLUTE COUNT (10*3/UL) BY AUTOMATED COUNT0.0 10*3/uLNormal0.0-0.2ProMedica Doctors Medical CenterComcorewell health pennock hospital on above:Result Comment: This is an appended report. These results have been appended to a previously preliminary verified report.Performed By: #### CBCA #### [facility] ([facility]) [address] [place], [place] [address]E. [place] [address] VIRBASOPHILS RELATIVE PERCENT BY AUTOMATED COUNT0.8 %Normal [facility] on above:Result Comment: This is an appended report. These results have been appended to a previously preliminary verified report.Performed By: #### CBCA #### [facility] ([address] [place] [address] VIRCELLAVISION ANISOCYTOSIS IN BLOOD BY LIGHT MICROSCOPY2+ NormalHolzer Medical Center – JacksonComcorewell health pennock hospital on above:Result Comment: This is an appended report. These results have been appended to a previously preliminary verified report.Performed By: #### CBCA #### [facility] MEDICAL CENTERMagen [facility] ([facility]) [address] [place] [address] [place] [address] VIRCELLAVISION DIFFERENTIAL TYPEAUTOMATED DIFFERENTIALNormal [facility] on above:Result Comment: This is an appended report. These results have been appended to a previously preliminary verified report.Performed By: #### CBCA #### [facility] ([facility]) [address] [place] [address] [place] [address] VIRCELLAVISION RBC MORPHOLOGYReviewedNormalProTexas Health Presbyterian Dallas on above:Result Comment: This is an appended report. These results have been appended to a previously preliminary verified report.Performed By: #### CBCA #### [facility] ([address] [address] VIREosinophils (Bld) [#/Vol]0.1 10*3/uLNormal0.0-0.4[facility] on above:Result Comment: This is an appended report. These results have been appended to a previously preliminary verified report. Performed By: #### CBCA #### [facility] ([address] [address] VIREOSINOPHILS RELATIVE PERCENT BY AUTOMATED COUNT1.3 %Normal [facility] on above:Result Comment: This is an appended report. These results have been appended to a previously preliminary verified report.Performed By: #### CBCA #### [facility] ([address] [address] VIRErythrocyte distribution width (RBC) [Ratio]26.8 %High 11.5-15Hol[facility] Center – JacksonComcorewell health pennock hospital on above:Performed By: #### CBCA #### [facility] ([address] [address] VIRHematocrit (Bld) [Volume fraction]29.6 %Ofx13-05WrkHpsxtmHolzer Medical Center – JacksonComment on above:Performed By: #### CBCA #### [facility] ([address] [address] VIRHemoglobin (Bld) [Mass/Vol]9.5 g/dLLow11.7-15.5POhioHealth Marion General HospitalComcorewell health pennock hospital on above:Performed By: #### CBCA #### [facility] ([address] [address] VIRLYMPHOCYTES ABSOLUTE COUNT (10*3/UL) BY AUTOMATED COUNT2.0 10*3/uLNormal1.0-3.5POhioHealth Riverside Methodist Hospital on above:Result Comment: This is an appended report. These results have been appended to a previously preliminary verified report.Performed By: #### CBCA #### [facility] ([address] [address] VIRLYMPHOCYTES RELATIVE PERCENT BY AUTOMATED COUNT43.5 %Normal [facility] on above:Result Comment: This is an appended report. These results have been appended to a previously preliminary verified report.Performed By: #### CBCA #### [facility] ([address] [address] VIRH (RBC) [Entitic mass]26.0 rvQid07-11FyuGkxnvlParis Regional Medical CenterComcorewell health pennock hospital on above:Performed By: #### CBCA #### [facility] ([address] [address] VIRMCHC (RBC) [Mass/Vol]32.2 g/nSVhdlhm20-29AmoUowhibParis Regional Medical CenterComment on above:Performed By: #### CBCA #### [facility] ([address] [address] VIRMCV (RBC) [Entitic vol]81 eRPtvzar93-873PprGjlkwp Fremont HospitalComcorewell health pennock hospital on above:Performed By: #### CBCA #### [facility] ([address] [address] VIRMONOCYTES ABSOLUTE COUNT (10*3/UL) BY AUTOMATED COUNT0.3 10*3/uLNormal0.0-0.9[facility] on above:Result Comment: This is an appended report. These results have been appended to a previously preliminary verified report.Performed By: #### CBCA #### [facility] ([address] [address] VIRMONOCYTES RELATIVE PERCENT BY AUTOMATED COUNT6.5 %Normal [facility] – JacksonComment on above:Result Comment: This is an appended report. These results have been appended to a previously preliminary verified report.Performed By: #### CBCA #### [facility] ([facility]) [address] [place] [address]. [place] [address] VIRNEUTROPHILS ABSOLUTE COUNT BY AUTOMATED COUNT2.2 10*3/uL Normal1.5-6.6Hol[facility] Medical Center – JacksonComment on above:Result Comment: This is an appended report. These results have been appended to a previously preliminary verified report.Performed By: #### CBCA #### [facility] ([address] [address] VIRNEUTROPHILS RELATIVE PERCENT BY AUTOMATED COUNT47.9 %Normal [facility] – JacksonComment on above:Result Comment: This is an appended report. These results have been appended to a previously preliminary verified report.Performed By: #### CBCA #### [facility] ([address] [address] VIRPlatelet mean volume (Bld) [Entitic vol]10.0 fLNormal7-12 [facility] – JacksonComment on above:Performed By: #### CBCA #### [facility] ([address] [address] VIRPlatelets (Bld) [#/Vol]246 10*3/lVQlrcwr654-786BpbIzegxg [facility]ont HospitalComment on above:Performed By: #### CBCA #### [facility] ([address] [address] VIRRBC COUNT3.66 X10E12/LLow3.8-5.2POhioHealth Marion General Hospital Comment on above:Performed By: #### CBCA #### [facility] ([address] [address] VIRWBC (Bld) [#/Vol]4.7 10*3/uLNormal4-11ProMedica Doctors Medical CenterComment on above:Performed By: #### CBCA #### [facility] ([facility]) [address] [address] VIRCT ABDOMEN AND PELVIS W CONTon 99-20-8085MG ABDOMEN AND PELVIS W CONTCT ABDOMEN AND PELVIS W CONT CT ABDOMEN [...] abdominal aorta is nonanuerysmal. The portal, splenic, andsuperior mesenteric veins appear patent. LYMPH NODES: No [...] by Lucas Rob MD on 09/08/2024 5:30 AMNHolzer Medical Center – JacksonCT CTA CHESTon 59-38-2267SJ CTA CHESTCT CTA CHEST History: LUQ pain worse with inspiration, hx of recent R sided PE, repeat scan as previous CT nondiagnostic due to timing Procedure: Multidetector CT thoracic Angiogram performed with IV contrast without complication, including 3 -DMaximum intensity projection reconstructions constructed under concurrent physician [...] Jose Angel Greene MD on 09/08/2024 6:52 [facility]A CHEST CT CHEST WITH CONTRAST (PE [...] bolus opacification and respiratory motion artifact. Normal heartsize. Please refer to separate report for abdominal [...] by Lucas Rob MD on 09/08/2024 5:06 AMNormalProParis Regional Medical CenterLIPASEon 37-10-2045Notvaj [Catalytic activity/Vol]37 U/UDdyzrw96-58 [facility] – JacksonComment on above:Performed By: #### LIPA #### [facility] ([place] [address] [place] [address] VIRLIVER PANELon 74-04-5796Dwobhbp [Mass/Vol]4.2 g/dLNormal 3.2-5.3POhioHealth Marion General HospitalComment on above:Performed By: #### CBCA #### [facility] ([address] [place] [address] VIRALP [Catalytic activity/Vol]34 U/WLso40-570OnaUyeptmParis Regional Medical CenterComment on above:Performed By: #### CBCA #### [facility] ([address] [place] [address] VIRALT [Catalytic activity/Vol]15 U/LNormal<=31POhioHealth Marion General HospitalComment on above:Performed By: #### CBCA #### [facility] ([address] [place] [address] VIRAST [Catalytic activity/Vol]18 U/LNormal<=41ProParis Regional Medical CenterComment on above:Performed By: #### CBCA #### [facility] ([place] [address] [place] [address] VIRBilirubin [Mass/Vol]0.3 mg/dLNormal0.3-1.2POhioHealth Marion General HospitalComment on above:Performed By: #### CBCA #### [facility] ([address] [place] [place] [address] VIRBilirubin.indirect [Mass/Vol]mg/dLNormal<=0.4ProParis Regional Medical CenterComment on above:Performed By: #### CBCA #### [facility] ([address] [address] VIRProtein [Mass/Vol]7.5 g/dLNormal6.0-8.0ProParis Regional Medical CenterComment on above:Performed By: #### CBCA #### [address] [address] VIRPOCT NURSING URINE MACROSCOPIC UAon 70-56-0906DRBKDUXIW KAY NegativeNormalNegativeHolzer Medical Center – JacksonComment on above:Performed By: #### NUM #### [address] [address] VIRBLOOD/HGB NURModerateAbnormalNegativeHolzer Medical Center – JacksonComment on above:Performed By: #### NUM #### [address] [address] VIRGLUCOSE NURNegativeNormokNegSelect Medical Specialty Hospital - Columbus Comment on above:Performed By: #### NUM #### [address] [address] VIRKETONES NURTraceAbnoatrium health university cityNegativeHolzer Medical Center – Jackson Comment on above:Performed By: #### NUM #### [address] [place] [address] VIRLEUKOCYTE ESTERASE NURNegativeNormalNegativeHolzer Medical Center – JacksonComment on above:Performed By: #### NUM #### [address] [address] VIRNITRITE NURNegativeNoatrium health university cityNegativeHolzer Medical Center – Jackson Comment on above:Performed By: #### NUM #### [address] [address] VIRPH NUR6.6Fzdkoc4.0, 6.0, 6.5, 7.0, 7.5, 8.0, 8.5, 5.5 [facility] – JacksonComment on above:Performed By: #### NUM #### [facility] ([address] [place] [address] VIRPROTEIN NURNegativeNormalNegativeHolzer Medical Center – Jackson Comment on above:Performed By: #### NUM #### [facility] ([address] [address] VIRSPECIFIC GRAVITY KAY>=1.006Ounwurcz8.010, 1.015, 1.020, 1.025Hol[facility] Medical Center – JacksonComment on above:Performed By: #### NUM #### [facility] ([address] [address] VIRUROBILINOGEN NUR0.2 E.U./dLNormalHolzer Medical Center – Jackson Comment on above:Performed By: #### NUM #### [facility] ([address] [address] VIRPOCT , URINE (NUCG)on 83-68-6425Qagl HCG ( test) Ql (U)NegativeNormalNegative, IndeterminateHolzer Medical Center – JacksonComment on above:Performed By: #### NUCG #### [facility] ([address] [place] [address] VIRTROP I, HIGH SENSITIVITY 1 HOURon 30-96-7206NCXXESRS I, HIGH SENSITIVITY<^2Normal<16ProParis Regional Medical CenterComment on above:Performed By: #### CBCA #### [facility] ([address] [address] VIRTROPONIN I, HIGH SENSITIVITY 0 HOURon 19-61-6408AQOHWRNL I, HIGH SENSITIVITY<^2Normal<16ProParis Regional Medical CenterComment on above: Performed By: #### TNIHS0 #### [facility] ([address] [place] [address] VIRBASIC METABOLIC PANELon 40-07-0298Dujpe gap [Moles/Vol]7 mmol/LNormal5-15ProParis Regional Medical CenterComment on above:Performed By: #### BMP #### [facility] ([address] [place] [address] VIRCalcium [Mass/Vol]8.9 mg/dLNormal8.5-10.5POhioHealth Marion General HospitalComment on above:Performed By: #### BMP #### [facility] ([address] [place] [address] VIRChloride [Moles/Vol]108 mmol/SOfkjcc30-825LnwSmsspwParis Regional Medical CenterComment on above:Performed By: #### BMP #### [facility] ([address] [place] [address] VIRCO2 [Moles/Vol]25 mmol/HOyhqmf54-56CdtYayajuOhioHealth Marion General HospitalComment on above:Performed By: #### BMP #### [address] [place] [address] VIRCreatinine [Mass/Vol]0.69 mg/dLNormal0.40-1.00ProParis Regional Medical CenterComment on above:Result Comment: METHOD TRACEABLE TO IDMS STANDARDPerformed By: #### BMP #### [facility] ([address] [place] [address] VIREGFR (CKD-EPI) NON-RACE DEPENDENT>^90Normal>=60ProParis Regional Medical CenterComment on above:Result Comment: eGFR not reported due to non- numeric value for Creatinine. Reported eGFR is based on the CKD-EPI 2020 equation that does not use a race coefficient.Performed By: #### BMP #### [facility] ([address] [place] [address] VIRGlucose [Mass/Vol]121 mg/kPNhev57-62FdjEmziunParis Regional Medical CenterComment on above:Performed By: #### BMP #### [facility] ([address] [place] [address] VIRPotassium [Moles/Vol]3.2 mmol/LLow3.5-5.0ProParis Regional Medical CenterComment on above:Performed By: #### BMP #### [facility] ([address] [place] [address] VIRSodium [Moles/Vol]140 mmol/YBtfukr221-235VyiIokfhl Fremont HospitalComment on above:Performed By: #### BMP #### [facility] ([address] [place] [address] VIRUrea nitrogen [Mass/Vol]10 mg/dLNormal5-23ProParis Regional Medical CenterComment on above:Performed By: #### BMP #### [facility] ([address] [place] [address] VIRCBC WITH AUTO DIFFERENTIALon 65-59-3927QWUFMPXYK ABSOLUTE COUNT (10*3/UL) BY AUTOMATED COUNT0.0 10*3/uLNormal0.0-0.2ProMedGeorge L. Mee Memorial HospitalComment on above:Performed By: #### CBCA #### [facility] ([address] [place] [address] VIRBASOPHILS RELATIVE PERCENT BY AUTOMATED COUNT0.9 %Normal [facility] – JacksonComment on above:Performed By: #### CBCA #### [facility] ([address] [place] [address] VIRCELLAVISION DIFFERENTIAL TYPEAUTOMATED DIFFERENTIALNormal [facility] – JacksonComment on above:Performed By: #### CBCA #### [facility] ([address] [place] [address] VIREosinophils (Bld) [#/Vol]0.1 10*3/uLNormal0.0-0.4[facility] Center – JacksonComment on above:Performed By: #### CBCA #### [facility] ([address] [place] [address] VIREOSINOPHILS RELATIVE PERCENT BY AUTOMATED COUNT1.3 %Normal [facility] – JacksonComment on above:Performed By: #### CBCA #### [facility] ([address] [place] [address] VIRErythrocyte distribution width (RBC) [Ratio]19.5 %High 11.5-15[facility] – JacksonComment on above:Performed By: #### CBCA #### [facility] ([address] [place] [address] VIRHematocrit (Bld) [Volume fraction]23.4 %Jcp54-63RotCgvbqgParis Regional Medical CenterComment on above:Performed By: #### CBCA #### [facility] ([address] [place] [address] VIRHemoglobin (Bld) [Mass/Vol]7.5 g/dLLow11.7-15.5POhioHealth Marion General HospitalComment on above:Performed By: #### CBCA #### [facility] ([address] [place] [address] VIRLYMPHOCYTES ABSOLUTE COUNT (10*3/UL) BY AUTOMATED COUNT1.9 10*3/uLNormal1.0-3.5POhioHealth Marion General HospitalComment on above:Performed By: #### CBCA #### [facility] ([address] [place] [address] VIRLYMPHOCYTES RELATIVE PERCENT BY AUTOMATED COUNT46.9 %Normal [facility] JacksonComment on above:Performed By: #### CBCA #### [facility] ([address] [place] [address] VIRMCH (RBC) [Entitic mass]26.2 chPxa04-25IyoZensrnParis Regional Medical CenterComment on above:Performed By: #### CBCA #### [facility] [facility] ([address] [place] [address] VIRMCHC (RBC) [Mass/Vol]32.2 g/gKFrinff81-98DzdNyqcqgParis Regional Medical CenterComment on above:Performed By: #### CBCA #### [facility] ([address] [place] [address] VIRMCV (RBC) [Entitic vol]81 kTLtgpso72-409DzkQgurwb Fremont HospitalComment on above:Performed By: #### CBCA #### [facility] ([address] [place] [address] VIRMONOCYTES ABSOLUTE COUNT (10*3/UL) BY AUTOMATED COUNT0.3 10*3/uLNormal0.0-0.9[facility] – JacksonComment on above:Performed By: #### CBCA #### [facility] ([address] [place] [address] VIRMONOCYTES RELATIVE PERCENT BY AUTOMATED COUNT7.3 %Normal [facility] – JacksonComment on above:Performed By: #### CBCA #### [facility] ([address] [place] [address] VIRNEUTROPHILS ABSOLUTE COUNT BY AUTOMATED COUNT1.8 10*3/uL Normal1.5-6.6[facility] – JacksonComment on above:Performed By: #### CBCA #### [facility] ([address] [place] [address] VIRNEUTROPHILS RELATIVE PERCENT BY AUTOMATED COUNT43.6 %Normal [facility] – JacksonComment on above:Performed By: #### CBCA #### [facility] ([facility]) [address] [place] [address] [place] [address] VIRPlatelet mean volume (Bld) [Entitic vol]9.4 fLNormal7-12 [facility] JacksonComcorewell [facility] on above:Performed By: #### CBCA #### [facility] ([address] [place] [address] VIRPlatelets (Bld) [#/Vol]286 10*3/zULsraiy806-843XsjWpmrkyHolzer Medical Center – JacksonComment on above:Performed By: #### CBCA #### [facility] ([address] [place] [address] VIRRBC COUNT2.88 X10E12/LLow3.8-5.2POhioHealth [facility] Comment on above:Performed By: #### CBCA #### [facility] ([facility]) [address] [place] [address] [place] [address] VIRWBC (Bld) [#/Vol]4.1 10*3/uLNormal4-11[facility] JacksonComcorewell health pennock hospital on above:Performed By: #### CBCA #### [facility] ([facility]) [address] [place] [address]. [place] [address] VIRD-DIMERon 08-02-2024D DIMER<^382Petjhc7-165QndCyrzggHolzer Medical Center – JacksonComcorewell health [facility] hospital on above:Result Comment: Results <255 ng/mL DDU: The presensence of a VTE can safely be excluded with a negative D-Dimer result and Wells score. A negative result doesn't exclude the possibility of DIC. The test should be repeated along with other diagnostic tests if the patient's symptoms persist or worsen.Performed By: #### DDMR #### [facility] ([facility]) [address] [place] [address] [place] [address] VIRUrinalysis macro (dipstick) panel (U)on 07-15-2024 Bilirubin, UANegativeNegative - 4(70) +++ mg/dLNOMS HealthcareBlood, UAPositive Negative - 50 Enrrique/mcLNOMS HealthcareComment on above:smallClarity, UAClearNOMS HealthcareColor, UAYellowNOMS HealthcareGlucose, UANegativeNegative - 2000(110) ++++ mg/dLNOMS HealthcareInterpretation and review of laboratory resultsAbnormal NOMS HealthcareKetones, UANegativeNegative - 160(16) ++++ mg/dLNOMS Healthcare Leukocytes, UANegativeNegative - 500+++ Cam/mcLNOMS HealthcareNitrite, UA NegativeNegative - PositiveNOMS HealthcarepH, UA65 - 9NOMS HealthcareProtein, UA NegativeNegative - 2000(20) ++++ mg/dLNOMS HealthcareSpec Grav, UA1.031 - 1.03 NOMS HealthcareUrobilinogen, UA0.20.2 - 12 mg/dLNOMS HealthcareNOMS Healthcare CBC WITH AUTO DIFFERENTIALon 88-25-2251ZVIZINUTT ABSOLUTE COUNT (10*3/UL) BY AUTOMATED COUNT0.0 10*3/uLNormal0.0-0.2Pro[facility]ica Togus Va Medical CenterComment on above:Performed By: #### CBCA ####[facility] ([facility])[address] [address] VIRBASOPHILS RELATIVE PERCENT BY AUTOMATED COUNT0.7 %NormalProMedica Memorial HospitalComment on above:Performed By: #### CBCA ####[facility] ([facility])[address] [address] VIREosinophils (Bld) [#/Vol]0.1 10*3/uLNormal0.0-0.4 [facility] Va Medical CenterComment on above:Performed By: #### CBCA ####[facility] ([facility])[address] [address] VIR EOSINOPHILS RELATIVE PERCENT BY AUTOMATED COUNT1.6 %NormalProMedica Memorial HospitalComment on above:Performed By: #### CBCA ####[facility] ([facility])[address], [place] [address] VIRErythrocyte distribution width (RBC) [Ratio]18.4 %High11.5-15[facility] Comment on above:Performed By: #### CBCA ####[facility] ([facility])[address], [place] [address] VIRHematocrit (Bld) [Volume fraction]26.7 %Gts72-55EnqIfwlgt [place] HospitalComment on above:Performed By: #### CBCA ####[facility] ([facility])[address], [place] [address] VIRHemoglobin (Bld) [Mass/Vol]8.7 g/dLLow11.7-15.5PSelect Medical OhioHealth Rehabilitation Hospital - Dublin HospitalComment on above:Performed By: #### CBCA ####[facility] ([facility])[address], [place] [address] VIRLYMPHOCYTES ABSOLUTE COUNT (10*3/UL) BY AUTOMATED COUNT1.8 10*3/uLNormal1.0-3.5PFort Hamilton HospitalComment on above:Performed By: #### CBCA ####[facility] ([facility])[address], [place] [address] VIRLYMPHOCYTES RELATIVE PERCENT BY AUTOMATED COUNT44.4 %NormalProOur Lady Of Mercy Hospital HospitalComment on above:Performed By: #### CBCA ####[facility] ([facility])[address], [place] [address] VIRMCH (RBC) [Entitic mass]28.2 pg Kntjxk99-72NuvKvdtnt [place] HospitalComment on above:Performed By: #### CBCA ####[facility] ([facility])[address], [place] [address] VIRMCHC (RBC) [Mass/Vol]32.4 g/cRArkmbk46-60WpzDpwzqbProMedica Memorial Hospital Comment on above:Performed By: #### CBCA ####[facility] ([facility])[address], [place] [address] VIRMCV (RBC) [Entitic vol]87.0 fL Pjuduz90-812FxeUznvjj [facility] HospitalComment on above:Performed By: #### CBCA ####[facility] ([facility])[address], [place] [address] VIRMONOCYTES ABSOLUTE COUNT (10*3/UL) BY AUTOMATED COUNT0.2 10*3/uLNormal 0.0-0.9ProMedica [facility] HospitalComment on above:Performed By: #### CBCA ####[facility] ([facility])[address], [place] [address] VIRMONOCYTES RELATIVE PERCENT BY AUTOMATED COUNT5.0 %NormalProWadsworth-Rittman Hospitalca [facility]out HospitalComment on above:Performed By: #### CBCA ####[facility] ([facility])[address], [place] [address] VIRNEUTROPHILS ABSOLUTE COUNT BY AUTOMATED COUNT2.0 10*3/uLNormal1.5-6.6ProWadsworth-Rittman Hospitalca [facility]out HospitalComment on above:Performed By: #### CBCA ####[facility] ([facility])[address], [place] [address] VIRNEUTROPHILS RELATIVE PERCENT BY AUTOMATED COUNT48.3 %NormalProWadsworth-Rittman Hospitalca [facility]out HospitalComment on above: Performed By: #### CBCA ####[facility] ([facility])[address], [place] [address] VIRPlatelet mean volume (Bld) [Entitic vol]9.5 fLNormal7-12Pro[facility] HospitalComment on above:Performed By: #### CBCA ####[facility] ([facility])[address], [place] [address] VIRPlatelets (Bld) [#/Vol]202 10*3/qOBmnxca127-346CzpXmmnue [facility] HospitalComment on above:Performed By: #### CBCA ####[facility] ([facility])[address], [place] [address] VIRRBC COUNT3.07 X10E12/LLow3.8-5.2ProMedLakeHealth TriPoint Medical Center HospitalComment on above:Performed By: #### CBCA ####[facility] ([facility])[address], [place] [address] VIRWBC (Bld) [#/Vol]4.1 10*3/uLNormal4-11[facility] HospitalComment on above:Performed By: #### CBCA ####[facility] ([facility])[address], [place] [address] VIRCOMPREHENSIVE METABOLIC PANELon 20-07-7157Mievnee [Mass/Vol]4.2 g/dLNormal3.2-5.3ProMedLakeHealth TriPoint Medical Center HospitalComment on above:Performed By: #### CMP ####[facility] ([facility])[address] [address] VIRALP [Catalytic activity/Vol]33 U/WRnq55-428DnfNkglsx [facility] HospitalComment on above:Performed By: #### CMP ####[facility] ([facility])[address] [address] VIRALT [Catalytic activity/Vol]9 U/LNormal<=31ProMedLakeHealth TriPoint Medical Center HospitalComment on above:Performed By: #### CMP ####[facility] ([facility])[address] [address] VIRAnion gap [Moles/Vol]8 mmol/LNormal5-15[facility] HospitalComment on above:Performed By: #### CMP ####[facility] ([facility])[address] [address] VIRAST [Catalytic activity/Vol]17 U/LNormal<=41Pro[facility] HospitalComment on above:Performed By: #### CMP ####[facility] ([facility])[address] [address] VIRBilirubin [Mass/Vol]0.4 mg/dLNormal0.3-1.2Pro[facility] HospitalComment on above: Performed By: #### CMP ####[facility] ([facility])[address] [address] VIRCalcium [Mass/Vol]9.4 mg/dLNormal8.5-10.5 [facility] HospitalComment on above:Performed By: #### CMP ####[facility] ([facility])[address] [address] VIR Chloride [Moles/Vol]105 mmol/IRwkzvy75-297NziXohwrv [facility] HospitalComment on above:Performed By: #### CMP ####[facility] ([facility])[address] [address] VIRCO2 [Moles/Vol]29 mmol/OSlzjgq78-96 ProMsoutheast health medical centera [facility]out HospitalComment on above:Performed By: #### CMP ####[facility] ([facility])[address] [address] VIR Creatinine [Mass/Vol]0.64 mg/dLNormal0.40-1.00ProMedica [facility] HospitalComment on above:Result Comment: METHOD TRACEABLE TO IDMS STANDARDPerformed By: #### CMP ####[facility] ([facility])[address] [address] VIREGFR (CKD-EPI) NON-RACE DEPENDENT>^90Normal>=60ProMedica [facility] HospitalComment on above:Result Comment: Reported eGFR is based on theCKD-EPI 2020 equation that doesnot use a race coefficient.Performed By: #### CMP ####[facility] ([facility])[address] [address] VIRGlucose [Mass/Vol]106 mg/mQNuqw28-13SxtGammkc [place] HospitalComment on above:Performed By: #### CMP ####[facility] ([facility])[address] [address] VIRPotassium [Moles/Vol]3.6 mmol/LNormal 3.5-5.0ProOur Lady Of Mercy Hospital HospitalComment on above:Performed By: #### CMP ####[facility] ([facility])[address] [address] VIRProtein [Mass/Vol]7.0 g/dLNormal6.0-8.0ProOur Lady Of Mercy Hospital HospitalComment on above:Performed By: #### CMP ####[facility] ([facility])[address] [address] VIRSodium [Moles/Vol]142 mmol/L Wcewem424-947EfsEguvms [place] HospitalComment on above:Performed By: #### CMP ####[facility] ([facility])[address] [address] VIRUrea nitrogen [Mass/Vol]7 mg/dLNormal5-23ProOur [facility] Of Mercy Hospital Hospital Comment on above:Performed By: #### CMP ####[facility] ([facility])[address] [address] VIRLDHon 35-12-7977KCK722 U/LNormal 100-235ProOur Lady Of Mercy Hospital HospitalComment on above:Performed By: #### LDH ####[facility] ([facility])[address] [address] VIRURIC ACIDon 48-03-3674Yavew [Mass/Vol]4.3 mg/dLNormal2.6-7.2Pro[facility]ica [facility] HospitalComment on above:Performed By: #### URIC ####[facility] ([facility])[address], [place] [address] VIRINFLIXIMAB QUANT W/REFLEXon 92-85-8060IPWCBTXTQR QUANT W/REFLEXSEE COMMENTSNormalProMedica Stout HospitalComment on above:Result Comment: Test Result Flag Unit RefValue Infliximab QN with Reflex to Ab, S Infliximab, S 8.1 mcg/mL REFERENCE VALUE Limit of Quantitation = 1.0 mcg/mL Interpretation SEE COMMENTSFor clinical assessment of response to therapy, infliximab should be measured at trough. When infliximab trough concentrations are greater than 5.0 mcg/mL, clinically relevant rgeexlnity-zk-xaijmhtzup are unlikely and reflex testing will not be performed. ADDITIONAL INFORMATION This test was developed and its performance characteristics determined by [facility] in a manner consistent with CLIA requirements. This test has not been cleared or approved by theU.S. Food and Drug Administration. Test Performed by: [facility] [address] [place] [address] Tanning Solution Maker: Celi Fernandez Ph.D.; CLIA# [id number] By: #### INFXR ####[facility] (SDL)[address] [place] [address] VIR COMPREHENSIVE METABOLIC PANELon 35-53-9216Ycnwqoq [Mass/Vol]3.4 g/dLNormal 3.2-5.3ProMedica [facility] Va Medical CenterComment on above:Performed By: #### CMP ####[facility] ([facility])[address] [place] [address] VIRALP [Catalytic activity/Vol]39 U/HZypczg34-330LttAehnsv [facility] Comment on above:Performed By: #### CMP ####[facility] ([facility])[address] [address] VIRALT [Catalytic activity/Vol]17 U/LNormal<=31PFort Hamilton HospitalComment on above:Performed By: #### CMP ####[facility] ([facility])[address] [address] VIRAnion gap [Moles/Vol]10 mmol/LNormal5-15[facility] Comment on above:Performed By: #### CMP ####[facility] ([facility])[address] [address] VIRAST [Catalytic activity/Vol]14 U/LNormal<=41ProOhiohealth Southeastern Medical CenterComment on above:Performed By: #### CMP ####[facility] ([facility])[address] [address] VIRBilirubin [Mass/Vol]0.3 mg/dLNormal0.3-1.2PFort [facility] Comment on above:Performed By: #### CMP ####[facility] ([facility])[address] [address] VIRCalcium [Mass/Vol]8.8 mg/dL Normal8.5-10.5PFort Hamilton HospitalComment on above:Performed By: #### CMP ####[facility] ([facility])[address] [address] VIRChloride [Moles/Vol]107 mmol/ZMxbouy19-896RgjOrxifvProMedica Memorial Hospital Comment on above:Performed By: #### CMP ####[facility] ([facility])[address] [address] VIRCO2 [Moles/Vol]27 mmol/LNormal 22-32PFort [place] HospitalComment on above:Performed By: #### CMP ####[facility] ([facility])[address] [address] VIR Creatinine [Mass/Vol]0.51 mg/dLNormal0.40-1.00ProMedica [facility] HospitalComment on above:Result Comment: METHOD TRACEABLE TO IDMS STANDARDPerformed By: #### CMP ####[facility] ([facility])[address] [address] VIREGFR (CKD-EPI) NON-RACE DEPENDENT>^90Normal>=60ProMedica [facility] HospitalComment on above:Result Comment: Reported eGFR is based on theCKD-EPI 2020 equation that doesnot use a race coefficient.Performed By: #### CMP ####[facility] ([facility])[address] [address] VIRGlucose [Mass/Vol]99 mg/eOSaousm52-00EaiIoyspx [facility] HospitalComment on above:Performed By: #### CMP ####[facility] ([facility])[address] [address] VIRPotassium [Moles/Vol]3.9 mmol/L Normal3.5-5.0ProWadsworth-Rittman Hospitalca [facility] HospitalComment on above:Performed By: #### CMP ####[facility] ([facility])[address] [address] VIRProtein [Mass/Vol]6.3 g/dLNormal6.0-8.0ProWadsworth-Rittman Hospitalca [facility] HospitalComment on above:Performed By: #### CMP ####[facility] ([facility])[address] [address] VIRSodium [Moles/Vol]144 mmol/L Mhkiid389-908IxwMdvfce [facility] HospitalComment on above:Performed By: #### CMP ####[facility] ([facility])[address] [address] VIRUrea nitrogen [Mass/Vol]5 mg/dLNormal5-23[facility] Comment on above:Performed By: #### CMP ####[facility] ([facility])[address] [address] VIRHEMOGLOBINon 06-18-2024 Hemoglobin (Bld) [Mass/Vol]9.3 g/dLLow11.7-15.5PFort Hamilton HospitalComment on above:Order Comment: Discontinue Hemoglobin after Heparin is stopped. Performed By: #### HGB ####[facility] ([facility])[address] [address] VIRHEPARIN ANTI XA, UNFRACTIONATEDon 06-18-2024 ANTI XA UFH0.36 IU/mLNormal0.30-0.70ProOhiohealth Southeastern Medical CenterComment on above: Result Comment: Optimal time for testing is 6 hrs post dosageThis test is specific for monitoring patients on UFH, and is not recommended for use with other Anti-Xa medications.Performed By: #### UFHXA ####[facility] ([facility])[address] [address] VIRPLATELET COUNTon 28-20-9473Nplvxgfv mean volume (Bld) [Entitic vol]9.8 fLNormal7-12PFort [facility] HospitalComment on above:Order Comment: Discontinue platelets after Heparin is stopped.Performed By: #### PLTCT ####[facility] ([facility])[address] [address] VIRPlatelets (Bld) [#/Vol]345 10*3/nJYxzsao542-573VvqUpmmut [place] HospitalComment on above:Order Comment: Discontinue platelets after Heparin is stopped.Performed By: #### PLTCT ####[facility] ([facility])[address] [address] VIRAPTTon 99-38-2011uRSZ Coag (Bld) [Time]31 fSsulcf39-73SzdIqjeghOhiohealth Southeastern Medical CenterComment on above:Performed By: #### PTT ####[facility] ([facility])[address] [address] VIRCOMPREHENSIVE METABOLIC PANELon 03-41-2496Udfutgz [Mass/Vol]3.7 g/dLNormal3.2-5.3Pro[facility] HospitalComment on above:Performed By: #### CMP ####[facility] ([facility])[address] [address] VIRALP [Catalytic activity/Vol]43 U/KWgvwjs13-535SzbLfbuym [facility] HospitalComment on above: Performed By: #### CMP ####[facility] ([facility])[address] [address] VIRALT [Catalytic activity/Vol]18 U/LNormal<=31 [facility] HospitalComment on above:Performed By: #### CMP ####[facility] ([facility])[address] [address] VIR Anion gap [Moles/Vol]9 mmol/LNormal5-15[facility] HospitalComment on above:Performed By: #### CMP ####[facility] ([facility])[address] [address] VIRAST [Catalytic activity/Vol]20 U/LNormal <=41Pro[facility] HospitalComment on above:Performed By: #### CMP ####[facility] ([facility])[address] [address] VIR Bilirubin [Mass/Vol]0.4 mg/dLNormal0.3-1.2Pro[facility] HospitalComment on above:Performed By: #### CMP ####[facility] ([facility])[address] [address] VIRCalcium [Mass/Vol]8.9 mg/dLNormal8.5-10.5 [facility] HospitalComment on above:Performed By: #### CMP ####[facility] ([facility])[address] [address] VIR Chloride [Moles/Vol]105 mmol/EZghddh65-450RjaNfmeia [place] HospitalComment on above:Performed By: #### CMP ####[facility] ([facility])[address] [address] VIRCO2 [Moles/Vol]26 mmol/UOujflx53-89 [facility] HospitalComment on above:Performed By: #### CMP ####[facility] ([facility])[address] [address] VIR Creatinine [Mass/Vol]0.52 mg/dLNormal0.40-1.00ProOur [facility] Of Mer[facility] HospitalComment on above:Result Comment: METHOD TRACEABLE TO IDMS STANDARDPerformed By: #### CMP ####[facility] ([facility])[address] [address] VIREGFR (CKD-EPI) NON-RACE DEPENDENT>^90Normal>=60ProOur Lady Of Mercy Hospital HospitalComment on above:Result Comment: Reported eGFR is based on theCKD-EPI 2020 equation that doesnot use a race coefficient.Performed By: #### CMP ####[facility] ([facility])[address] [address] VIRGlucose [Mass/Vol]108 mg/yKSwwy41-45CqsDxoxuf [place] HospitalComment on above:Performed By: #### CMP ####[facility] ([facility])[address] [address] VIRPotassium [Moles/Vol]3.6 mmol/LNormal 3.5-5.0ProOur [facility] Of Mercy Hospital HospitalComment on above:Performed By: #### CMP ####[facility] ([facility])[address] [address] VIRProtein [Mass/Vol]6.6 g/dLNormal6.0-8.0ProOhiohealth Southeastern Medical CenterComment on above:Performed By: #### CMP ####[facility] ([facility])[address] [address] VIRSodium [Moles/Vol]140 mmol/L Znhizt029-798EorJdsvuc [place] HospitalComment on above:Performed By: #### CMP ####[facility] ([facility])[address] [address] VIRUrea nitrogen [Mass/Vol]6 mg/dLNormal5-23[facility] Comment on above:Performed By: #### CMP ####[facility] ([facility])[address] [address] VIRAlbumin [Mass/Vol]3.9 g/dLNormal 3.2-5.3PFort Hamilton HospitalComment on above:Performed By: #### CMP ####[facility] ([facility])[address] [address] VIRALP [Catalytic activity/Vol]45 U/CFyhddj11-283UfzIcnfmxProMedica Memorial Hospital Comment on above:Performed By: #### CMP ####[facility] ([facility])[address] [address] VIRALT [Catalytic activity/Vol]19 U/LNormal<=31PFort Hamilton HospitalComment on above:Performed By: #### CMP ####[facility] [facility])[address] [address] VIRAnion gap [Moles/Vol]12 mmol/LNormal5-15[facility] Comment on above:Performed By: #### CMP ####[facility] ([facility])[address] [address] VIRAST [Catalytic activity/Vol]18 U/LNormal<=41ProOhiohealth Southeastern Medical CenterComment on above:Performed By: #### CMP ####[facility] ([facility])[address] [address] VIRBilirubin [Mass/Vol]0.4 mg/dLNormal0.3-1.2PFort [facility] Comment on above:Performed By: #### CMP ####[facility] ([facility])[address] [address] VIRCalcium [Mass/Vol]9.2 mg/dL Normal8.5-10.5PFort Hamilton HospitalComment on above:Performed By: #### CMP ####[facility] ([facility])[address] [address] VIRChloride [Moles/Vol]104 mmol/TXjjfip61-606SfdEqmnaiProMedica Memorial Hospital Comment on above:Performed By: #### CMP ####[facility] ([facility])[address] [address] VIRCO2 [Moles/Vol]25 mmol/LNormal 22-32PFort Hamilton HospitalComment on above:Performed By: #### CMP ####[facility] ([facility])[address] [address] VIR Creatinine [Mass/Vol]0.59 mg/dLNormal0.40-1.00ProOhiohealth Southeastern Medical CenterComment on above:Result Comment: METHOD TRACEABLE TO IDMS STANDARDPerformed By: #### CMP ####[facility] ([facility])[address] [address] VIREGFR (CKD-EPI) NON-RACE DEPENDENT>^90Normal>=60ProOhiohealth Southeastern Medical CenterComment on above:Result Comment: Reported eGFR is based on theCKD-EPI 2020 equation that doesnot use a race coefficient.Performed By: #### CMP ####[facility] ([facility])[address] [address] VIRGlucose [Mass/Vol]127 mg/uGEimb19-57EnrLgprnv [place] HospitalComment on above:Performed By: #### CMP ####[facility] ([facility])[address] [address] VIRPotassium [Moles/Vol]3.5 mmol/LNormal 3.5-5.0ProOur Lady Of Mercy Hospital HospitalComment on above:Performed By: #### CMP ####[facility] ([facility])[address] [address] VIRProtein [Mass/Vol]7.0 g/dLNormal6.0-8.0ProOur Lady Of Mercy Hospital HospitalComment on above:Performed By: #### CMP ####[facility] ([facility])[address] [address] VIRSodium [Moles/Vol]141 mmol/L Ovnksm498-951ItfCivwmg [place] HospitalComment on above:Performed By: #### CMP ####[facility] ([facility])[address] [address] VIRUrea nitrogen [Mass/Vol]6 mg/dLNormal5-23[facility] Comment on above:Performed By: #### CMP ####[facility] ([facility])[address] [address] VIRHEMOGLOBINon 06-17-2024 Hemoglobin (Bld) [Mass/Vol]9.3 g/dLLow11.7-15.5PSelect Medical [facility] HospitalComment on above:Order Comment: Discontinue Hemoglobin after Heparin is stopped. Performed By: #### HGB ####[facility] ([facility])[address] [address] VIRHemoglobin (Bld) [Mass/Vol]10.0 g/dLLow 11.7-15.5PSelect Medical [facility] HospitalComment on above:Performed By: #### HGB ####[facility] ([facility])[address] [address] VIRHEPARIN ANTI XA, UNFRACTIONATEDon [id number] XA UFH0.32 IU/mLNormal 0.30-0.70ProOur Lady Of Mercy Hospital HospitalComment on above:Result Comment: Optimal time for testing is 6 hrs post dosageThis test is specific for monitoring patients on UFH, and is not recommended for use with other Anti-Xa medications.Performed By: #### UFHXA ####[facility] ([facility])[address] [address] VIRANTI XA UFH0.53 IU/mLNormal0.30-0.70[facility] HospitalComment on above:Result Comment: Optimal time for testing is 6 hrs post dosageThis test is specific for monitoring patients on UFH, and is not recommended for use with other Anti-Xa medications.Performed By: #### UFHXA ####[facility] ([facility])[address] [address] VIRPLATELET COUNTon 08-65-8168Ezcjuldz mean volume (Bld) [Entitic vol]10.4 fLNormal7-12[facility] HospitalComment on above:Order Comment: Discontinue platelets after Heparin is stopped.Performed By: #### PLTCT ####[facility] ([facility])[address] [address] VIRPlatelets (Bld) [#/Vol]342 10*3/pZXawirc768-725OubBztqgm [facility] HospitalComment on above: Order Comment: Discontinue platelets after Heparin is stopped.Performed By: #### PLTCT ####[facility] ([facility])[address] [address] VIRPlatelet mean volume (Bld) [Entitic vol]10.2 fLNormal7-12 [facility] HospitalComment on above:Performed By: #### PLTCT ####[facility] ([facility])[address] [address] VIR Platelets (Bld) [#/Vol]335 10*3/cIWruqhd467-440LpgLxjswd [facility] HospitalComment on above:Performed By: #### PLTCT ####[facility] ([facility])[address] [facility] [address], [place] [address] VIRPROTIME AND INRon 39-97-7184VZM 1.0Jmlflj4.9-1.2PSelect Medical [facility] HospitalComment on above:Performed By: #### PINR ####[facility] ([facility])[address] [facility] [address], [place] [address] VIRPT Coag (PPP) [Time]12.0 sNormal9.8-13.2PSelect Medical [facility] HospitalComment on above:Performed By: #### PINR ####[facility] ([facility])[address], [place] [address] VIRB-TYPE NATRIURETIC PEPTIDEon [id number] peptide B (Bld) [Mass/Vol]6 pg/mLNormal<=100 ProMMercy Health West HospitalComment on above:Performed By: #### BNP ####[facility] ([facility])[address] [address] VIRCBC WITH AUTO DIFFERENTIALon 91-38-4449ZVFMRFMMI ABSOLUTE COUNT (10*3/UL) BY AUTOMATED COUNT0.0 10*3/uLNormalProOhiohealth Southeastern Medical CenterComment on above: Performed By: #### CBCA ####[facility] ([facility])[address], [place] [address] VIRBASOPHILS RELATIVE PERCENT BY AUTOMATED COUNT1.0 %NormalProOur Lady Of Mercy Hospital HospitalComment on above:Performed By: #### CBCA ####[facility] ([facility])[address], [place] [address] VIRCELLAVISION DIFFERENTIAL TYPEAUTOMATED DIFFERENTIALNormal ProMMercy Health West HospitalComment on above:Performed By: #### CBCA ####[facility] ([facility])[address], [place] [address] VIR Eosinophils (Bld) [#/Vol]0.0 10*3/uLNormalProMedica Boggs HospitalComment on above:Performed By: #### CBCA ####[facility] ([facility])[address], [place] [address] VIREOSINOPHILS RELATIVE PERCENT BY AUTOMATED COUNT0.8 %NormalProMedica Boggs HospitalComment on above:Performed By: #### CBCA ####[facility] ([facility])[address], [place] [address] VIRErythrocyte distribution width (RBC) [Ratio]18.1 %High 11.5-15Pro[facility] HospitalComment on above:Performed By: #### CBCA ####[facility] ([facility])[address], [place] [address] VIRHematocrit (Bld) [Volume fraction]29.1 %Boc34-91VirWmlbrm Boggs HospitalComment on above:Performed By: #### CBCA ####[facility] ([facility])[address], [place] [address] VIRHemoglobin (Bld) [Mass/Vol]9.7 g/dLLow11.7-15.5Pro[facility]ica [facility] HospitalComment on above: Performed By: #### CBCA ####[facility] ([facility])[address], [place] [address] VIRLYMPHOCYTES ABSOLUTE COUNT (10*3/UL) BY AUTOMATED COUNT1.3 10*3/uLNormalProMedica Boggs HospitalComment on above: Performed By: #### CBCA ####[facility] ([facility])[address], [place] [address] VIRLYMPHOCYTES RELATIVE PERCENT BY AUTOMATED COUNT32.2 %NormalProMedica Boggs HospitalComment on above:Performed By: #### CBCA ####[facility] ([facility])[address], [place] [address] VIRMCH (RBC) [Entitic mass]30.1 rzPkslzm02-93HaiZbaygv [facility] HospitalComment on above:Performed By: #### CBCA ####[facility] ([facility])[address], [place] [address] VIRMCHC (RBC) [Mass/Vol]33.2 g/yQDozjzl32-91RrwSdvirl [facility] HospitalComment on above: Performed By: #### CBCA ####[facility] ([facility])[address], [place] [address] VIRMCV (RBC) [Entitic vol]91 mMKtxhis14-668 [facility] HospitalComment on above:Performed By: #### CBCA ####[facility] ([facility])[address], [place] [address] VIR MONOCYTES ABSOLUTE COUNT (10*3/UL) BY AUTOMATED COUNT0.5 10*3/uLNormalProMedica Boggs HospitalComment on above:Performed By: #### CBCA ####[facility] ([facility])[address], [place] [address] VIRMONOCYTES RELATIVE PERCENT BY AUTOMATED COUNT13.6 %NormalProMedica Boggs HospitalComment on above:Performed By: #### CBCA ####[facility] ([facility])[address], [place] [address] VIRNEUTROPHILS ABSOLUTE COUNT BY AUTOMATED COUNT2.1 10*3/uLNormalProMedica Boggs HospitalComment on above: Performed By: #### CBCA ####[facility] ([facility])[address], [place] [address] VIRNEUTROPHILS RELATIVE PERCENT BY AUTOMATED COUNT52.4 %NormalProMedica Boggs HospitalComment on above:Performed By: #### CBCA ####[facility] ([facility])[address], [place] [address] VIRPlatelet mean volume (Bld) [Entitic vol]10.1 fLNormal7-12 [facility] HospitalComment on above:Performed By: #### CBCA ####[facility] ([facility])[address], [place] [address] VIR Platelets (Bld) [#/Vol]304 10*3/wKPslsqf717-172SvdHyydhu [facility] HospitalComment on above:Performed By: #### CBCA ####[facility] ([facility])[address] [facility] [address], [place] [address] VIRRBC COUNT3.21 X10E12/LLow 3.8-5.2Pro[facility]ica [facility] HospitalComment on above:Performed By: #### CBCA ####[facility] ([facility])[address] [facility] [address], [place] [address] VIRWBC (Bld) [#/Vol]3.9 10*3/uLLow4-11Pro[facility] HospitalComment on above:Performed By: #### CBCA ####[facility] ([facility])[address], [place] [address] VIRCT CTA ABD AND PELVISon [id number] CTA ABD AND PELVISNormalProMedica Boggs HospitalCT CTA CHESTon [id number] CTA CHESTNormalProMedica Boggs HospitalTROP I, HIGH SENSITIVITY 1 HOURon 06-16-2024 TROPONIN I, HIGH SENSITIVITY4 ng/LNormal<16[facility] HospitalComment on above:Performed By: #### TNIHS1 ####[facility] ([facility])[address], [place] [address] VIRTROPONIN I, HIGH SENSITIVITY 0 HOURon 03-09-0036DMFHBPZO I, HIGH SENSITIVITY4 ng/LNormal<16[facility] HospitalComment on above:Performed By: #### TNIHS0 ####[facility] ([facility])[address], [place] [address] VIRUS PELVIC COMPLETEon 01-55-7236HO PELVIC COMPLETENormalProMedica Boggs HospitalBASIC METABOLIC PANELon 52-01-0707Vbzbx gap [Moles/Vol]11 mmol/LNormal5-15[facility] HospitalComment on above:Performed By: #### BMP ####[facility] ([facility])[address] [address] VIRCalcium [Mass/Vol]9.1 mg/dLNormal8.5-10.5Pro[facility] HospitalComment on above:Performed By: #### BMP ####[facility] ([facility])[address] [address] VIRChloride [Moles/Vol]102 mmol/FRbvwps15-624EvxQkykcz [facility] HospitalComment on above:Performed By: #### BMP ####[facility] ([facility])[address] [address] VIRCO2 [Moles/Vol]26 mmol/HRyuemf91-65XhbYwepyp [facility] HospitalComment on above:Performed By: #### BMP ####[facility] ([facility])[address], [place] [address] VIRCreatinine [Mass/Vol]0.51 mg/dLNormal0.40-1.00[facility] HospitalComment on above:Result Comment: METHOD TRACEABLE TO IDMS STANDARD Performed By: #### BMP ####[facility] ([facility])[address] [address] VIREGFR (CKD-EPI) NON-RACE DEPENDENT>^90Normal >=60Pro[facility]ica [facility] HospitalComment on above:Result Comment: Reported eGFR is based on theCKD-EPI 2020 equation that doesnot use a race coefficient.Performed By: #### BMP ####[facility] ([facility])[address] [address] VIRGlucose [Mass/Vol]118 mg/pXIpmr94-90IedMetedb [facility] HospitalComment on above:Performed By: #### BMP ####[facility] ([facility])[address] [facility] [address] [address] VIRPotassium [Moles/Vol] 4.1 mmol/LNormal3.5-5.0Pro[facility] HospitalComment on above:Performed By: #### BMP ####[facility] ([facility])[address] [facility] [address] [address] VIRSodium [Moles/Vol]139 mmol/QAkbdvr079-295GrmRxwnej [facility] HospitalComment on above:Performed By: #### BMP ####[facility] ([facility])[address] [facility] [address] [address] VIRUrea nitrogen [Mass/Vol]20 mg/dLNormal5-23[facility] HospitalComment on above:Performed By: #### BMP ####[facility] ([facility])[address] [address] VIRBEDSIDE GLUCOSEon 49-73-2776Rnkwsid [Mass/Vol]137 mg/dL Tjvf58-77XlaQaruww [facility] HospitalComment on above:Performed By: #### BEDG ####[facility] ([facility])[address] [place] [place] [address] VIR Glucose [Mass/Vol]104 mg/aYPyre60-48TefSiuwqw [facility] HospitalComment on above: Performed By: #### BEDG ####[facility] ([facility])[address] [place] [place] [address] VIRCBC WITH AUTO DIFFERENTIALon 26-00-1464IRJSUNZIGNA DIFFERENTIAL TYPEMANUAL DIFFERENTIALNormalProMedica Stout HospitalComment on above:Result Comment: This is an appended report. These results have been appended to a previously preliminary verified report.Performed By: #### CBCA ####[facility] ([facility])[address], [place] [address] VIRCELLAVISION EOSINOPHILS ABSOLUTE COUNT (10*3/UL) BY MANUAL COUNT0.8 10*3/uLNormalProMedica Boggs HospitalComcorewell health pennock hospital on above:Result Comment: This is an appended report. These results have been appended to a previously preliminary verified report.Performed By: #### CBCA ####[facility] ([facility])[address], [place] [address] VIRCELLAVISION EOSINOPHILS PERCENT BY MANUAL COUNT10 %NormalProMedica Boggs HospitalComcorewell health pennock hospital on above: Result Comment: This is an appended report. These results have been appended to a previously preliminary verified report.Performed By: #### CBCA ####[facility] ([facility])[address], [place] [address] VIR CELLAVISION LYMPHOCYTES ABSOLUTE COUNT (10*3/UL) BY MANUAL COUNT1.7 10*3/uL NormalProWadsworth-Rittman Hospitalca [facility] HospitalComcorewell health penn[facility] hospital on above:Result Comment: This is an appended report. These results have been appended to a previously preliminary verified report.Performed By: #### CBCA ####[facility] ([facility])[address] [facility] [address], [place] [address] VIRCELLAVISION LYMPHOCYTES RELATIVE PERCENT BY MANUAL COUNT20 %NormalProOur Lady Of Mercy Hospital HospitalComcorewell health [facility] hospital on above:Result Comment: This is an appended report. These results have been appended to a previously preliminary verified report.Performed By: #### CBCA ####[facility] ([facility])[address], [place] [address] VIRCELLAVISION MONOCYTES ABSOLUTE COUNT (10*3/UL) IN BLOOD BY MANUAL COUNT 0.3 10*3/uLNormalProMedica Stout HospitalComcorewell health pennock hospital on above:Result Comment: This is an appended report. These results have been appended to a previously prelimi nary verified report.Performed By: #### CBCA ####[facility] ([facility])[address], [place] [address] VIRCELLAVISION MONOCYTES RELATIVE PERCENT BY MANUAL COUNT4 %NormalTrinity Health System [facility] Hospital Comment on above:Result Comment: This is an appended report. These results have been appended to a previously preliminary verified report.Performed By: #### CBCA ####[facility] ([facility])[address], [place] [address] VIRCELLAVISION NEUTROPHILS ABSOLUTE COUNT BY MANUAL COUNT5.5 10*3/uLNormalProOur Lady Of Mercy Hospital HospitalComment on above:Result Comment: This is an appended report. These results have been appended to a previously preliminary verified report.Performed By: #### CBCA ####[facility] ([facility])[address], [place] [address] VIRCELLAVISION NEUTROPHILS RELATIVE PERCENT BY MANUAL COUNT66 %NormalProMedica Memorial HospitalComment on above:Result Comment: This is an appended report. These results have been appended to a previously preliminary verified report.Performed By: #### CBCA ####[facility] ([facility])[address], [place] [address] VIRCELLAVISION NUCLEATED RED BLOOD CELLS IN BLOOD BY LIGHT MICROSCOPY2 NormalProMedica Memorial HospitalComment on above:Result Comment: This is an appended report. These results have been appended to a previously preliminary verified report.Performed By: #### CBCA ####[facility] ([facility])[address], [place] [address] VIRCELLAVISION POLYCHROMASIA IN BLOOD BY LIGHT MICROSCOPY1+NormalProOur Lady Of Mercy Hospital HospitalComcorewell health pennock hospital on above: Result Comment: This is an appended report. These results have been appended to a previously preliminary verified report.Performed By: #### CBCA ####[facility] ([facility])[address], [place] [address] VIR Erythrocyte distribution width (RBC) [Ratio]19.6 %High11.5-15ProMedica Memorial HospitalComment on above:Performed By: #### CBCA ####[facility] ([facility])[address], [place] [address] VIRHematocrit (Bld) [Volume fraction]27.2 %Vgs77-57BgyQrmrqwProMedica Memorial HospitalComment on above: Performed By: #### CBCA ####[facility] ([facility])[address], [place] [address] VIRHemoglobin (Bld) [Mass/Vol]9.3 g/dLLow 11.7-15.5PSelect Medical [facility] HospitalComment on above:Performed By: #### CBCA ####[facility] ([facility])[address], [place] [address] VIRMCH (RBC) [Entitic mass]31.5 bbVwvcwg20-55ZbbTlirfnProMedica Memorial Hospital Comment on above:Performed By: #### CBCA ####[facility] ([facility])[address], [place] [address] VIRMCHC (RBC) [Mass/Vol]34.0 g/dL Dehshk81-34YcfIceaypProMedica Memorial HospitalComment on above:Performed By: #### CBCA ####[facility] ([facility])[address], [place] [address] VIRMCV (RBC) [Entitic vol]93 bZHvuwdg21-811LopOxqbpdProMedica Memorial Hospital Comment on above:Performed By: #### CBCA ####[facility] ([facility])[address], [place] [address] VIRPlatelet mean volume (Bld) [Entitic vol]10.0 fLNormal7-12PSelect Medical [facility] HospitalComment on above: Performed By: #### CBCA ####[facility] ([facility])[address], [place] [address] VIRPlatelets (Bld) [#/Vol]230 10*3/uLNormal 150-450ProOur Lady Of Mercy Hospital HospitalComment on above:Performed By: #### CBCA ####[facility] ([facility])[address], [place] [address] VIRRBC COUNT2.94 X10E12/LLow3.8-5.2PPrairieville Family Hospitalica Stout HospitalComment on above:Performed By: #### CBCA ####[facility] ([facility])[address], [place] [address] VIRWBC (Bld) [#/Vol]8.3 10*3/uLNormal4-11 [facility] HospitalComment on above:Performed By: #### CBCA ####[facility] ([facility])[address], [place] [address] VIR IONIZED CALCIUMon 75-29-5019RYHBKZV CALCIUM - ICAN4.8 mg/dLNormal4.5-5.3 [facility] HospitalComment on above:Performed By: #### ICA ####[facility] ([facility])[address] [address] VIR IONIZED MAGNESIUMon [id number] [Moles/Vol]0.39 mmol/LLow0.45-0.74 [facility] HospitalComment on above:Performed By: #### IMAG ####[facility] ([facility])[address], [place] [address] VIR MAGNESIUMon 27-33-4708Ohtiylrlu [Mass/Vol]1.7 mg/dLLow1.8-2.6Pro[facility] HospitalComment on above:Performed By: #### MG ####[facility] ([facility])[address], [place] [address] VIRPHOSPHORUSon 95-57-1594Rcswqvjqm [Mass/Vol]5.5 mg/dLHigh2.4-4.9[facility] Comment on above:Performed By: #### PHOS ####[facility] ([facility])[address], [place] [address] VIRBASIC METABOLIC PANELon 53-15-3886Cyhop gap [Moles/Vol]8 mmol/LNormal5-15[facility] Comment on above:Performed By: #### BMP ####[facility] ([facility])[address] [address] VIRCalcium [Mass/Vol]9.1 mg/dL Normal8.5-10.5PFort Hamilton HospitalComment on above:Performed By: #### BMP ####[facility] ([facility])[address] [address] [address] VIRChloride [Moles/Vol]100 mmol/LNsmonm37-414EfkRiknhrProMedica Memorial Hospital Comment on above:Performed By: #### BMP ####[facility] ([facility])[address] [address] VIRCO2 [Moles/Vol]27 mmol/LNormal 22-32PFort Hamilton HospitalComment on above:Performed By: #### BMP ####[facility] ([facility])[address] [address] VIR Creatinine [Mass/Vol]0.43 mg/dLNormal0.40-1.00ProMedica Memorial HospitalComment on above:Result Comment: METHOD TRACEABLE TO IDMS STANDARDPerformed By: #### BMP ####[facility] ([facility])[address] [address] VIREGFR (CKD-EPI) NON-RACE DEPENDENT>^90Normal>=60ProOhiohealth Southeastern Medical CenterComment on above:Result Comment: Reported eGFR is based on theCKD-EPI 2020 equation that doesnot use a race coefficient.Performed By: #### BMP ####[facility] ([facility])[address] [address] VIRGlucose [Mass/Vol]112 mg/vFCkih99-35ZwsGtfusfOhiohealth Southeastern Medical CenterComment on above:Performed By: #### BMP ####[facility] ([facility])[address] [facility] [address] [address] VIRPotassium [Moles/Vol]4.2 mmol/LNormal 3.5-5.0ProMedica [facility]out HospitalComment on above:Performed By: #### BMP ####[facility] ([facility])[address] [address] VIRSodium [Moles/Vol]135 mmol/SYpjzsv339-792JthKrcmiz [place] [facility] Comment on above:Performed By: #### BMP ####[facility] ([facility])[address] [facility] [address] [address] VIRUrea nitrogen [Mass/Vol]15 mg/dL Normal5-23ProOur Lady Of Mercy Hospital HospitalComment on above:Performed By: #### BMP ####[facility] ([facility])[address] [facility] [address] [address] VIRBEDSIDE GLUCOSEon 09-74-9145Antkgfw [Mass/Vol]127 mg/zRSvgi45-22 [facility] HospitalComment on above:Performed By: #### BEDG ####[facility] ([facility])[address] [place] [place] [address] VIRGlucose [Mass/Vol]132 mg/xGQpgr69-94JvuXurpls [facility] HospitalComment on above:Performed By: #### BEDG ####[facility] ([facility])[address] [place] [address] VIRGlucose [Mass/Vol]129 mg/yEUbaf49-47KeaUrerrf [facility] HospitalComment on above:Performed By: #### BEDG ####[facility] ([facility])[address] [place] [place] [address] VIRCBC WITH AUTO DIFFERENTIALon 51-19-4329Pfiu form neutrophils/100 WBC (Bld)1 %NormalProOur Lady Of Mercy Hospital HospitalComment on above: Result Comment: This is an appended report. These results have been appended to a previously preliminary verified report.Performed By: #### CBCA ####[facility] ([facility])[address], [place] [address] VIR CELLAVISION DIFFERENTIAL TYPECELLAVISION DIFFERENTIALNormalProMedica Boggs HospitalComment on above:Result Comment: This is an appended report. These results have been appended to a previously preliminary verified report.Performed By: #### CBCA ####[facility] ([facility])[address], [place] [address] VIRCELLAVISION EOSINOPHILS ABSOLUTE COUNT (10*3/UL) BY MANUAL COUNT0.1 10*3/uLNormalProMedica Boggs HospitalComment on above:Result Comment: This is an appended report. These results have been appended to a previously preliminary verified report.Performed By: #### CBCA ####[facility] ([facility])[address], [place] [address] VIR CELLAVISION EOSINOPHILS PERCENT BY MANUAL COUNT1 %NormalProMedica Boggs HospitalComment on above:Result Comment: This is an appended report. These results have been appended to a previously preliminary verified report.Performed By: #### CBCA ####[facility] ([facility])[address], [place] [address] VIRCELLAVISION LYMPHOCYTES ABSOLUTE COUNT (10*3/UL) BY MANUAL COUNT2.9 10*3/uLNormalProMedica Boggs HospitalComment on above:Result Comment: This is an appended report. These results have been appended to a previously preliminary verified report.Performed By: #### CBCA ####[facility] ([facility])[address], [place] [address] VIR CELLAVISION LYMPHOCYTES RELATIVE PERCENT BY MANUAL COUNT31 %NormalProMedica Boggs HospitalComment on above:Result Comment: This is an appended report. These results have been appended to a previously preliminary verified report. Performed By: #### CBCA ####[facility] ([facility])[address], [place] [address] VIRCELLAVISION METAMYELOCYTES RELATIVE PERCENT BY MANUAL COUNT1 %NormalProMedica Boggs HospitalComment on above:Result Comment: This is an appended report. These results have been appended to a previously preliminary verified report.Performed By: #### CBCA ####[facility] ([facility])[address], [place] [address] VIR CELLAVISION MONOCYTES ABSOLUTE COUNT (10*3/UL) IN BLOOD BY MANUAL COUNT0.4 10*3/uLNormalProMedica Boggs HospitalComment on above:Result Comment: This is an appended report. These results have been appended to a previously preliminary verified report.Performed By: #### CBCA ####[facility] ([facility])[address], [place] [address] VIRCELLAVISION MONOCYTES RELATIVE PERCENT BY MANUAL COUNT5 %NormalProMedica Boggs HospitalComment on above: Result Comment: This is an appended report. These results have been appended to a previously preliminary verified report.Performed By: #### CBCA ####[facility] ([facility])[address], [place] [address] VIR CELLAVISION MYELOCYTE RELATIVE PERCENT BY MANUAL COUNT2 %NormalProMedica Boggs HospitalComment on above:Result Comment: This is an appended report. These results have been appended to a previously preliminary verified report.Performed By: #### CBCA ####[facility] ([facility])[address], [place] [address] VIRCELLAVISION NEUTROPHILS ABSOLUTE COUNT BY MANUAL COUNT 5.5 10*3/uLNormalProMedica Boggs HospitalComment on above:Result Comment: This is an appended report. These results have been appended to a previously prelimi nary verified report.Performed By: #### CBCA ####[facility] ([facility])[address], [place] [address] VIRCELLAVISION NEUTROPHILS RELATIVE PERCENT BY MANUAL COUNT59 %NormalProMedica Boggs Hospital Comment on above:Result Comment: This is an appended report. These results have been appended to a previously preliminary verified report.Performed By: #### CBCA ####[facility] ([facility])[address], [place] [address] VIRCELLAVISION POLYCHROMASIA IN BLOOD BY LIGHT MICROSCOPY1+ NormalProMedica Stout HospitalComment on above:Result Comment: This is an appended report. These results have been appended to a previously preliminary verified report.Performed By: #### CBCA ####[facility] ([facility])[address], [place] [address] VIRErythrocyte distribution width (RBC) [Ratio]18.2 %High11.5-15ProMedica [facility]out HospitalComment on above: Performed By: #### CBCA ####[facility] ([facility])[address], [place] [address] VIRHematocrit (Bld) [Volume fraction]26.2 %Low 35-47ProMedica [facility]out HospitalComment on above:Performed By: #### CBCA ####[facility] ([facility])[address], [place] [address] VIRHemoglobin (Bld) [Mass/Vol]8.9 g/dLLow11.7-15.5ProMedica [facility] HospitalComment on above:Performed By: #### CBCA ####[facility] ([facility])[address], [place] [address] VIRMCH (RBC) [Entitic mass]31.0 lzZvysdy85-45CkqDwwlrm [facility] HospitalComment on above:Performed By: #### CBCA ####[facility] ([facility])[address], [place] [address] VIRMCHC (RBC) [Mass/Vol]34.0 g/xLDaqbbk56-86TlhUgfbze [facility] HospitalComment on above:Performed By: #### CBCA ####[facility] ([facility])[address], [place] [address] VIRMCV (RBC) [Entitic vol]91 xBUmyjin88-887KwgCcjmmj [facility] HospitalComment on above:Performed By: #### CBCA ####[facility] ([facility])[address], [place] [address] VIRPlatelet mean volume (Bld) [Entitic vol]9.5 fLNormal7-12 [facility] HospitalComment on above:Performed By: #### CBCA ####[facility] ([facility])[address], [place] [address] VIR Platelets (Bld) [#/Vol]240 10*3/mSUjtbnv154-048TyjPsazlx [facility] HospitalComment on above:Performed By: #### CBCA ####[facility] ([facility])[address], [place] [address] VIRRBC COUNT2.87 X10E12/LLow 3.8-5.2ProMedLakeHealth TriPoint Medical Center HospitalComment on above:Performed By: #### CBCA ####[facility] ([facility])[address], [place] [address] VIRWBC (Bld) [#/Vol]9.1 10*3/uLNormal4-11ProWadsworth-Rittman Hospitalca [facility] HospitalComment on above:Performed By: #### CBCA ####[facility] ([facility])[address], [place] [address] VIRIONIZED CALCIUMon 06-09-2024 IONIZED CALCIUM - ICAN5.0 mg/dLNormal4.5-5.3ProMedLakeHealth TriPoint Medical Center HospitalComment on above:Performed By: #### ICA ####[facility] ([facility])[address] [address] VIRIONIZED MAGNESIUMon 25-08-2516Dwqzsjkua [Moles/Vol]0.47 mmol/LNormal0.45-0.74Pro[facility] HospitalComment on above: Performed By: #### IMAG ####[facility] ([facility])[address], [place] [address] VIRMAGNESIUMon 36-20-1668Nrtzbpzpk [Mass/Vol] 1.9 mg/dLNormal1.8-2.6Pro[facility] HospitalComment on above:Performed By: #### MG ####[facility] ([facility])[address], [place] [address] VIRPHOSPHORUSon 09-47-5592Jexxswhuh [Mass/Vol]5.3 mg/dLHigh 2.4-4.9Pro[facility] HospitalComment on above:Performed By: #### PHOS ####[facility] ([facility])[address], [place] [address] VIRBASIC METABOLIC PANELon 91-86-7088Vozvn gap [Moles/Vol]11 mmol/LNormal 5-15ProMed[facility] HospitalComment on above:Performed By: #### BMP ####[facility] ([facility])[address] [address] VIR Calcium [Mass/Vol]9.0 mg/dLNormal8.5-10.5ProMedica [facility] HospitalComment on above:Performed By: #### BMP ####[facility] ([facility])[address] [address] VIRChloride [Moles/Vol]102 mmol/IZjevkn92-689 [facility] HospitalComment on above:Performed By: #### BMP ####[facility] ([facility])[address] [address] VIRCO2 [Moles/Vol]25 mmol/VHrlpmr19-43YsuSthgnu [facility] HospitalComment on above: Performed By: #### BMP ####[facility] ([facility])[address] [address] VIRCreatinine [Mass/Vol]0.43 mg/dLNormal 0.40-1.00Pro[facility] HospitalComment on above:Result Comment: METHOD TRACEABLE TO IDMS STANDARDPerformed By: #### BMP ####[facility] ([facility])[address] [facility] [address], [place] [address] VIREGFR (CKD-EPI) NON- RACE DEPENDENT>^90Normal>=60ProMedica [facility] HospitalComment on above:Result Comment: Reported eGFR is based on theCKD-EPI 2020 equation that doesnot use a race coefficient.Performed By: #### BMP ####[facility] ([facility])[address] [facility] [address], [place] [address] VIRGlucose [Mass/Vol]118 mg/dLHigh 65-99ProMedica [facility] HospitalComment on above:Performed By: #### BMP ####[facility] ([facility])[address] [address] VIR Potassium [Moles/Vol]4.2 mmol/LNormal3.5-5.0Pro[facility] HospitalComment on above:Performed By: #### BMP ####[facility] ([facility])[address] [place] [address] VIRSodium [Moles/Vol]138 mmol/WLupqdc110-996 [facility] HospitalComment on above:Performed By: #### BMP ####[facility] ([facility])[address] [address] VIR Urea nitrogen [Mass/Vol]13 mg/dLNormal5-23Pro[facility] HospitalComment on above:Performed By: #### BMP ####[facility] ([facility])[address] [address] VIRBEDSIDE GLUCOSEon 65-57-4531Eltnuza [Mass/Vol]137 mg/oUEvuo66-46IokQmtwpy [facility] HospitalComment on above:Performed By: #### BEDG ####[facility] ([facility])[address] [place] [address] VIRGlucose [Mass/Vol]145 mg/gAYdqb93-93GpmUvujiq [facility] HospitalComment on above:Performed By: #### BEDG ####[facility] ([facility])[address] [place] [address] VIRGlucose [Mass/Vol]122 mg/jSJvsn24-05GfkBgisqk [place] HospitalComment on above:Performed By: #### BEDG ####[facility] ([facility])[address] [facility] [place] [place] [address] VIRGlucose [Mass/Vol]129 mg/kIEgmr27-97 [facility] HospitalComment on above:Performed By: #### BEDG ####[facility] ([facility])[address] [place] [facility] [place] [address] VIRCBC WITH AUTO DIFFERENTIALon 82-64-6518Aocn form neutrophils/100 WBC (Bld)1 %NormalProOhiohealth Southeastern Medical CenterComment on above:Result Comment: This is an appended report. These results have been appended to a previously preliminary verified report. Performed By: #### CBCA ####[facility] ([facility])[address], [place] [address] VIRCELLAVISION DIFFERENTIAL TYPECELLAVISION DIFFERENTIALNormalProMedica Memorial HospitalComment on above:Result Comment: This is an appended report. These results have been appended to a previously prelimi nary verified report.Performed By: #### CBCA ####[facility] ([facility])[address], [place] [address] VIRCELLAVISION EOSINOPHILS ABSOLUTE COUNT (10*3/UL) BY MANUAL COUNT0.5 10*3/uLNormalProMedica Memorial HospitalComcorewell health pennock hospital on above:Result Comment: This is an appended report. These results have been appended to a previously preliminary verified report. Performed By: #### CBCA ####[facility] ([facility])[address], [place] [address] VIRCELLAVISION EOSINOPHILS PERCENT BY MANUAL COUNT5 %NormalProMedica Boggs HospitalComment on above:Result Comment: This is an appended report. These results have been appended to a previously preliminary verified report.Performed By: #### CBCA ####[facility] ([facility])[address], [place] [address] VIRCELLAVISION LYMPHOCYTES ABSOLUTE COUNT (10*3/UL) BY MANUAL COUNT3.0 10*3/uLNormalProMedica Boggs HospitalComment on above:Result Comment: This is an appended report. These results have been appended to a previously preliminary verified report.Performed By: #### CBCA ####[facility] ([facility])[address], [place] [address] VIRCELLAVISION LYMPHOCYTES RELATIVE PERCENT BY MANUAL COUNT 31 %NormalProMedica Boggs HospitalComment on above:Result Comment: This is an appended report. These results have been appended to a previously preliminary verified report.Performed By: #### CBCA ####[facility] ([facility])[address], [place] [address] VIRCELLAVISION MONOCYTES ABSOLUTE COUNT (10*3/UL) IN BLOOD BY MANUAL COUNT0.2 10*3/uLNormalProMedica Boggs HospitalComment on above:Result Comment: This is an appended report. These results have been appended to a previously preliminary verified report.Performed By: #### CBCA ####[facility] ([facility])[address], [place] [address] VIRCELLAVISION MONOCYTES RELATIVE PERCENT BY MANUAL COUNT2 %NormalProMedica Boggs HospitalComment on above:Result Comment: This is an appended report. These results have been appended to a previously preliminary verified report.Performed By: #### CBCA ####[facility] ([facility])[address], [place] [address] VIRCELLAVISION MYELOCYTE RELATIVE PERCENT BY MANUAL COUNT6 %NormalProMedica Boggs HospitalComment on above:Result Comment: This is an appended report. These results have been appended to a previously preliminary verified report.Performed By: #### CBCA ####[facility] ([facility])[address], [place] [address] VIR CELLAVISION NEUTROPHILS ABSOLUTE COUNT BY MANUAL COUNT5.5 10*3/uLNormalProMedica Boggs HospitalComcorewell health pennock hospital on above:Result Comment: This is an appended report. These results have been appended to a previously preliminary verified report. Performed By: #### CBCA ####[facility] ([facility])[address], [place] [address] VIRCELLAVISION NEUTROPHILS RELATIVE PERCENT BY MANUAL COUNT56 %NormalProWadsworth-Rittman Hospitalca [facility] HospitalComcorewell health pennock hospital on above:Result Comment: This is an appended report. These results have been appended to a previously preliminary verified report.Performed By: #### CBCA ####[facility] ([facility])[address], [place] [address] VIRCELLAVISION NUCLEATED RED BLOOD CELLS IN BLOOD BY LIGHT TOFNQUCKKI9UvqfpiUnmYlnlan [facility] HospitalComment on above:Result Comment: This is an appended report. These results have been appended to a previously preliminary verified report.Performed By: #### CBCA ####[facility] ([facility])[address], [place] [address] VIRCELLAVISION POLYCHROMASIA IN BLOOD BY LIGHT MICROSCOPY1+ NormalProMedica Boggs HospitalComment on above:Result Comment: This is an appended report. These results have been appended to a previously preliminary verified report.Performed By: #### CBCA ####[facility] ([facility])[address], [place] [address] VIRCELLAVISION RBC FRAGMENTS1+ NormalProMedica Boggs HospitalComment on above:Result Comment: This is an appended report. These results have been appended to a previously preliminary verified report.Performed By: #### CBCA ####[facility] ([facility])[address], [place] [address] VIRErythrocyte distribution width (RBC) [Ratio]17.2 %High11.5-15ProMedica [facility] HospitalComment on above: Performed By: #### CBCA ####[facility] ([facility])[address], [place] [address] VIRHematocrit (Bld) [Volume fraction]26.0 %Low 35-47ProMedica [facility] HospitalComment on above:Performed By: #### CBCA ####[facility] ([facility])[address], [place] [address] VIRHemoglobin (Bld) [Mass/Vol]8.8 g/dLLow11.7-15.5ProMedica [facility] HospitalComment on above:Performed By: #### CBCA ####[facility] ([facility])[address], [place] [address] VIRMCH (RBC) [Entitic mass]30.9 irAxedqm92-31DsgFzzlow [facility] HospitalComment on above:Performed By: #### CBCA ####[facility] ([facility])[address], [place] [address] VIRMCHC (RBC) [Mass/Vol]33.8 g/xVWnpreu06-86DooFgvytm [facility] HospitalComment on above:Performed By: #### CBCA ####[facility] ([facility])[address], [place] [address] VIRMCV (RBC) [Entitic vol]92 vSSdfsvd68-458FzcDjryxd [facility] HospitalComment on above:Performed By: #### CBCA ####[facility] ([facility])[address], [place] [address] VIRPlatelet mean volume (Bld) [Entitic vol]9.4 fLNormal7-12 [facility] HospitalComment on above:Performed By: #### CBCA ####[facility] ([facility])[address], [place] [address] VIR Platelets (Bld) [#/Vol]215 10*3/fRGqrhjs127-057WciUmfnom [facility] HospitalComment on above:Performed By: #### CBCA ####[facility] ([facility])[address], [place] [address] VIRRBC COUNT2.84 X10E12/LLow 3.8-5.2ProMedica [facility] HospitalComment on above:Performed By: #### CBCA ####[facility] ([facility])[address] [facility] [address], [place] [address] VIRWBC (Bld) [#/Vol]9.6 10*3/uLNormal4-11ProMed[facility] HospitalComment on above:Performed By: #### CBCA ####[facility] ([facility])[address] [address] VIRIONIZED CALCIUMon 06-08-2024 IONIZED CALCIUM - ICAN5.0 mg/dLNormal4.5-5.3ProMedLakeHealth [facility] HospitalComment on above:Performed By: #### ICA ####[facility] ([facility])[address] [address] VIRIONIZED MAGNESIUMon 44-72-5469Oyvbbynwj [Moles/Vol]0.42 mmol/LLow0.45-0.74ProMedica [facility] HospitalComment on above: Performed By: #### IMAG ####[facility] ([facility])[address], [place] [address] VIRMAGNESIUMon [id number] [Mass/Vol] 1.8 mg/dLNormal1.8-2.6ProW[facility]sworth-Rittman Hospitalca Stout HospitalComment on above:Performed By: #### MG ####[facility] ([facility])[address], [place] [address] VIRPHOSPHORUSon [id number] [Mass/Vol]5.1 mg/dLHigh 2.4-4.9ProWadsworth-Rittman Hospitalca Stout HospitalComment on above:Performed By: #### PHOS ####[facility] ([facility])[address], [place] [address] VIRBASIC METABOLIC PANELon 64-18-5032Esdbv gap [Moles/Vol]10 mmol/LNormal 5-15ProOur [facility]cy Hospital HospitalComment on above:Performed By: #### BMP ####[facility] ([facility])[address] [address] VIR Calcium [Mass/Vol]9.1 mg/dLNormal8.5-10.5Pro[facility] Stout HospitalComment on above:Performed By: #### BMP ####[facility] ([facility])[address] [address] VIRChloride [Moles/Vol]102 mmol/FNlgpcu71-014 [facility] Stout HospitalComment on above:Performed By: #### BMP ####[facility] C[facility])[address] [address] VIRCO2 [Moles/Vol]31 mmol/RKmahkz94-16LjwUgnahc [place] HospitalComment on above: Performed By: #### BMP ####[facility] ([facility])[address] [address] VIRCreatinine [Mass/Vol]0.59 mg/dLNormal 0.40-1.00ProOur Lady Of Mercy Hospital HospitalComment on above:Result Comment: METHOD TRACEABLE TO IDMS STANDARDPerformed By: #### BMP ####[facility] ([facility])[address] [address] VIREGFR (CKD-EPI) NON- RACE DEPENDENT>^90Normal>=60ProWadsworth-Rittman Hospitalca [place] HospitalComment on above:Result Comment: Reported eGFR is based on theCKD-EPI 2020 equation that doesnot use a race coefficient.Performed By: #### BMP ####[facility] ([facility])[address] [address] VIRGlucose [Mass/Vol]92 mg/dLNormal 65-99ProMedica [facility]gs HospitalComment on above:Performed By: #### BMP ####[facility] ([facility])[address] [address] VIR Potassium [Moles/Vol]4.8 mmol/LNormal3.5-5.0ProMedica Boggs HospitalComment on above:Performed By: #### BMP ####[facility] ([facility])[address] [address] VIRSodium [Moles/Vol]143 mmol/UFdwqmv901-903 [facility] HospitalComment on above:Performed By: #### BMP ####[facility] ([facility])[address] [facility] [address] [address] VIR Urea nitrogen [Mass/Vol]12 mg/dLNormal5-23ProMedica [facility]gs HospitalComment on above:Performed By: #### BMP ####[facility] ([facility])[address] [address] VIRBEDSIDE GLUCOSEon 09-23-8886Bpmpcgn [Mass/Vol]123 mg/rXCxrw41-25NisHoonac [facility] HospitalComment on above:Performed By: #### BEDG ####[facility] ([facility])[address] [place] [address] VIRGlucose [Mass/Vol]114 mg/dSAlsh12-50YjpGgbjvf [facility] HospitalComment on above:Performed By: #### BEDG ####[facility] ([facility])[address] [place] [address] VIRGlucose [Mass/Vol]121 mg/aBHwzg53-24QhwCpsjlf [facility] HospitalComment on above:Performed By: #### BEDG ####[facility] ([facility])[address] [place] [address] VIRGlucose [Mass/Vol]138 mg/uRQxbt69-06 [facility] HospitalComment on above:Performed By: #### BEDG ####[facility] ([facility])[address] [place] [place] [address] VIRCBC WITH AUTO DIFFERENTIALon 07-14-3307Hbjx form neutrophils/100 WBC (Bld)1 %NormalProOur Lady Of Mercy Hospital HospitalComment on above:Result Comment: This is an appended report. These results have been appended to a previously preliminary verified report. Performed By: #### CBCA ####[facility] ([facility])[address], [place] [address] VIRCELLAVISION DIFFERENTIAL TYPEMANUAL DIFFERENTIALNormalProOhiohealth Southeastern Medical CenterComment on above:Result Comment: This is an appended report. These results have been appended to a previously prelimi nary verified report.Performed By: #### CBCA ####[facility] ([facility])[address], [place] [address] VIRCELLAVISION EOSINOPHILS ABSOLUTE COUNT (10*3/UL) BY MANUAL COUNT0.3 10*3/uLNormalProOhiohealth Southeastern Medical CenterComment on above:Result Comment: This is an appended report. These results have been appended to a previously preliminary verified report. Performed By: #### CBCA ####[facility] ([facility])[address] [facility] [facility] [address], [place] [address] VIRCELLAVISION EOSINOPHILS PERCENT BY MANUAL COUNT4 %NormalProWadsworth-Rittman Hospitalca [facility] Medical CenterComcorewell health pennock hospital on above:Result Comment: This is an appended report. These results have been appended to a previously preliminary verified report.Performed By: #### CBCA ####[facility] ([facility])[address], [place] [address] VIRCELLAVISION LYMPHOCYTES ABSOLUTE COUNT (10*3/UL) BY MANUAL COUNT1.8 10*3/uLNormalProMedica Boggs HospitalComment on above:Result Comment: This is an appended report. These results have been appended to a previously preliminary verified report.Performed By: #### CBCA ####[facility] ([facility])[address], [place] [address] VIRCELLAVISION LYMPHOCYTES RELATIVE PERCENT BY MANUAL COUNT 21 %NormalProMedica Boggs HospitalComment on above:Result Comment: This is an appended report. These results have been appended to a previously preliminary verified report.Performed By: #### CBCA ####[facility] ([facility])[address], [place] [address] VIRCELLAVISION MONOCYTES ABSOLUTE COUNT (10*3/UL) IN BLOOD BY MANUAL COUNT1.0 10*3/uLNormalProMedica Boggs HospitalComment on above:Result Comment: This is an appended report. These results have been appended to a previously preliminary verified report.Performed By: #### CBCA ####[facility] ([facility])[address], [place] [address] VIRCELLAVISION MONOCYTES RELATIVE PERCENT BY MANUAL COUNT12 %NormalProMedica Boggs HospitalComment on above:Result Comment: This is an appended report. These results have been appended to a previously preliminary verified report.Performed By: #### CBCA ####[facility] ([facility])[address], [place] [address] VIRCELLAVISION MYELOCYTE RELATIVE PERCENT BY MANUAL COUNT2 %NormalProMedica Boggs HospitalComment on above:Result Comment: This is an appended report. These results have been appended to a previously preliminary verified report.Performed By: #### CBCA ####[facility] ([facility])[address], [place] [address] VIR CELLAVISION NEUTROPHILS ABSOLUTE COUNT BY MANUAL COUNT5.4 10*3/uLNormalProMedica Boggs HospitalComment on above:Result Comment: This is an appended report. These results have been appended to a previously preliminary verified report. Performed By: #### CBCA ####[facility] ([facility])[address], [place] [address] VIRCELLAVISION NEUTROPHILS RELATIVE PERCENT BY MANUAL COUNT60 %NormalProMedica Memorial HospitalComcorewell health pennock hospital on above:Result Comment: This is an appended report. These results have been appended to a previously preliminary verified report.Performed By: #### CBCA ####[facility] ([facility])[address], [place] [address] VIRCELLAVISION NUCLEATED RED BLOOD CELLS IN BLOOD BY LIGHT IFELWEMZUR3HoazmiYncBexqlc [place] HospitalComcorewell health pennock hospital on above:Result Comment: This is an appended report. These results have been appended to a previously preliminary verified report.Performed By: #### CBCA ####[facility] ([facility])[address], [place] [address] VIRCELLAVISION POLYCHROMASIA IN BLOOD BY LIGHT MICROSCOPY1+ NormalProMedica Memorial HospitalComcorewell health pennock hospital on above:Result Comment: This is an appended report. These results have been appended to a previously preliminary verified report.Performed By: #### CBCA ####[facility] ([facility])[address], [place] [address] VIRErythrocyte distribution width (RBC) [Ratio]16.6 %High11.5-15ProOur Lady Of Mercy Hospital HospitalComment on above: Performed By: #### CBCA ####[facility] ([facility])[address], [place] [address] VIRHematocrit (Bld) [Volume fraction]23.2 %Low 35-47ProOur Lady Of Mercy Hospital HospitalComment on above:Performed By: #### CBCA ####[facility] ([facility])[address], [place] [address] VIRHemoglobin (Bld) [Mass/Vol]7.8 g/dLLow11.7-15.5ProMedica Boggs HospitalComment on above:Performed By: #### CBCA ####[facility] ([facility])[address], [place] [address] VIRMCH (RBC) [Entitic mass]30.8 rmNalumn07-51UcvLaarjk [facility] HospitalComment on above:Performed By: #### CBCA ####[facility] ([facility])[address], [place] [address] VIRMCHC (RBC) [Mass/Vol]33.6 g/aYGhqhdw43-95YoaWfvzfw [facility] HospitalComment on above:Performed By: #### CBCA ####[facility] ([facility])[address], [place] [address] VIRMCV (RBC) [Entitic vol]92 kBVkgdoz98-290RjkKbisqu [facility] HospitalComment on above:Performed By: #### CBCA ####[facility] ([facility])[address], [place] [address] VIRPlatelet mean volume (Bld) [Entitic vol]9.6 fLNormal7-12 [facility] HospitalComment on above:Performed By: #### CBCA ####[facility] ([facility])[address], [place] [address] VIR Platelets (Bld) [#/Vol]172 10*3/dADozarr665-586QvsRhgtsd [facility] HospitalComment on above:Performed By: #### CBCA ####[facility] ([facility])[address], [place] [address] VIRRBC COUNT2.53 X10E12/LLow 3.8-5.2ProMedica [facility] HospitalComment on above:Performed By: #### CBCA ####[facility] ([facility])[address], [place] [address] VIRWBC (Bld) [#/Vol]8.7 10*3/uLNormal4-11ProMedica [facility] HospitalComment on above:Performed By: #### CBCA ####[facility] ([facility])[address] [facility] [address] [address] VIRIONIZED CALCIUMon 06-07-2024 IONIZED CALCIUM - ICAN4.8 mg/dLNormal4.5-5.3ProMedica [facility] HospitalComment on above:Performed By: #### ICA ####[facility] ([facility])[address] [address] VIRIONIZED MAGNESIUMon 73-07-3919Sksalrqkk [Moles/Vol]0.34 mmol/LLow0.45-0.74ProWadsworth-Rittman Hospitalca [place] HospitalComment on above: Performed By: #### IMAG ####[facility] ([facility])[address] [address] VIRMAGNESIUMon 29-14-6961Miwgfimmk [Mass/Vol] 2.2 mg/dLNormal1.8-2.6ProWadsworth-Rittman Hospitalca [place] HospitalComment on above:Performed By: #### MG ####[facility] ([facility])[address] [address] VIRPHOSPHORUSon 80-71-9038Mnptqghsn [Mass/Vol]4.9 mg/dL Normal2.4-4.9ProOur Lady Of Mercy Hospital HospitalComment on above:Performed By: #### PHOS ####[facility] ([facility])[address] [facility] [facility] [address], [place] [address] VIRTRIGLYCERIDESon 85-13-9656Ssusskadywdt [Mass/Vol]89 mg/cFVnfxny00-681 [facility] HospitalComment on above:Performed By: #### TRIG ####[facility] ([facility])[address] [facility] [address], [place] [address] VIR BASIC METABOLIC PANELon 80-18-5392XIBGT METABOLIC PANELBMP BASIC METABOLIC PANEL CancelledNormalProMedica Stout HospitalAnion gap [Moles/Vol]8 mmol/LNormal5-15 [facility] HospitalComment on above:Performed By: #### BMP ####[facility] ([facility])[address] [address] VIR Calcium [Mass/Vol]8.3 mg/dLLow8.5-10.5PSelect Medical [facility] HospitalComment on above: Performed By: #### BMP ####[facility] ([facility])[address] [address] VIRChloride [Moles/Vol]102 mmol/BHpvdes78-256 ProMGuernsey [facility] HospitalComment on above:Performed By: #### BMP ####[facility] ([facility])[address] [address] VIRCO2 [Moles/Vol]26 mmol/IAlblcg74-27KjeRyzuhp [place] HospitalComment on above: Performed By: #### BMP ####[facility] ([facility])[address] [address] VIRCreatinine [Mass/Vol]0.38 mg/dLLow0.40-1.00 [facility] HospitalComment on above:Result Comment: METHOD TRACEABLE TO IDMS STANDARDPerformed By: #### BMP ####[facility] ([facility])[address] [address] VIREGFR (CKD-EPI) NON-RACE DEPENDENT>^90Normal>=60ProWadsworth-Rittman Hospitalca [place] HospitalComment on above:Result Comment: Reported eGFR is based on theCKD-EPI 2020 equation that doesnot use a race coefficient.Performed By: #### BMP ####[facility] ([facility])[address] [address] VIRGlucose [Mass/Vol]92 mg/dLNormal 65-99ProMedica [place] HospitalComment on above:Performed By: #### BMP ####[facility] ([facility])[address] [address] VIR Potassium [Moles/Vol]4.0 mmol/LNormal3.5-5.0ProOur [facility] Of [facility] HospitalComment on above:Performed By: #### BMP ####[facility] ([facility])[address] [facility] [address] [address] VIRSodium [Moles/Vol]136 mmol/VRdbfsz358-554 [facility] HospitalComment on above:Performed By: #### BMP ####[facility] ([facility])[address] [facility] [address] [address] VIR Urea nitrogen [Mass/Vol]12 mg/dLNormal5-23ProOur Lady Of Mercy Hospital HospitalComment on above:Performed By: #### BMP ####[facility] ([facility])[address] [place] [address] VIRBEDSIDE GLUCOSEon 21-28-0689Giorcmk [Mass/Vol]110 mg/eDPnls16-47SnfBbtofe [place] HospitalComment on above:Performed By: #### BEDG ####[facility] ([facility])[address] [place] [facility] [place] [address] VIRGlucose [Mass/Vol]121 mg/pRErwp23-39MlhFsopuq [place] HospitalComment on above:Performed By: #### BEDG ####[facility] ([facility])[address] [place] [place] [address] VIRGlucose [Mass/Vol]122 mg/sKGqes20-00YlwEaoaqg [place] HospitalComment on above:Performed By: #### BEDG ####[facility] ([facility])[address] [place] [place] [address] VIRCBC WITH AUTO DIFFERENTIALon 41-48-0608Utvy form neutrophils/100 WBC (Bld)3 %NormalProMedica Memorial Hospital Comment on above:Result Comment: This is an appended report. These results have been appended to a previously preliminary verified report.Performed By: #### CBCA ####[facility] ([facility])[address], [place] [address] VIRCELLAVISION DIFFERENTIAL TYPECELLAVISION DIFFERENTIAL NormalProMedica Stout HospitalComment on above:Result Comment: This is an appended report. These results have been appended to a previously preliminary verified report.Performed By: #### CBCA ####[facility] ([facility])[address], [place] [address] VIRCELLAVISION HYPOCHROMIA IN BLOOD BY LIGHT MICROSCOPY1+NormalProMedica Boggs HospitalComcorewell health pennock hospital on above: Result Comment: This is an appended report. These results have been appended to a previously preliminary verified report.Performed By: #### CBCA ####[facility] ([facility])[address], [place] [address] VIR CELLAVISION LYMPHOCYTES ABSOLUTE COUNT (10*3/UL) BY MANUAL COUNT2.0 10*3/uL NormalProMedica Stout HospitalComcorewell health pennock hospital on above:Result Comment: This is an appended report. These results have been appended to a previously preliminary verified report.Performed By: #### CBCA ####[facility] ([facility])[address], [place] [address] VIRCELLAVISION LYMPHOCYTES RELATIVE PERCENT BY MANUAL COUNT19 %NormalProMedica Stout HospitalComment on above:Result Comment: This is an appended report. These results have been appended to a previously preliminary verified report.Performed By: #### CBCA ####[facility] ([facility])[address], [place] [address] VIRCELLAVISION METAMYELOCYTES RELATIVE PERCENT BY MANUAL COUNT1 %Normal ProMedica [facility] HospitalComcorewell health pennock hospital on above:Result Comment: This is an appended report. These results have been appended to a previously preliminary verified report.Performed By: #### CBCA ####[facility] ([facility])[address], [place] [address] VIRCELLAVISION MONOCYTES ABSOLUTE COUNT (10*3/UL) IN BLOOD BY MANUAL COUNT0.3 10*3/uLNormalProMedica Memorial Hospital Comment on above:Result Comment: This is an appended report. These results have been appended to a previously preliminary verified report.Performed By: #### CBCA ####[facility] ([facility])[address], [place] [address] VIRCELLAVISION MONOCYTES RELATIVE PERCENT BY MANUAL COUNT3 % NormalProWadsworth-Rittman Hospitalca [place] HospitalComment on above:Result Comment: This is an appended report. These results have been appended to a previously preliminary verified report.Performed By: #### CBCA ####[facility] ([facility])[address], [place] [address] VIRCELLAVISION MYELOCYTE RELATIVE PERCENT BY MANUAL COUNT3 %NormalTrinity Health System [facility] HospitalComment on above:Result Comment: This is an appended report. These results have been appended to a previously preliminary verified report.Performed By: #### CBCA ####[facility] ([facility])[address], [place] [address] VIR CELLAVISION NEUTROPHILS ABSOLUTE COUNT BY MANUAL COUNT7.8 10*3/uLNormalKettering Health Behavioral Medical Centerca [place] HospitalComment on above:Result Comment: This is an appended report. These results have been appended to a previously preliminary verified report. Performed By: #### CBCA ####[facility] ([facility])[address], [place] [address] VIRCELLAVISION NEUTROPHILS RELATIVE PERCENT BY MANUAL COUNT71 %NormalProOur Lady Of Mercy Hospital HospitalComment on above:Result Comment: This is an appended report. These results have been appended to a previously preliminary verified report.Performed By: #### CBCA ####[facility] ([facility])[address], [place] [address] VIRCELLAVISION POLYCHROMASIA IN BLOOD BY LIGHT MICROSCOPY1+[facility] Comment on above:Result Comment: This is an appended report. These results have been appended to a previously preliminary verified report.Performed By: #### CBCA ####[facility] ([facility])[address], [place] [address] VIRErythrocyte distribution width (RBC) [Ratio]16.1 %High 11.5-15ProOur Lady Of Mercy Hospital HospitalComment on above:Performed By: #### CBCA ####[facility] ([facility])[address], [place] [address] VIRHematocrit (Bld) [Volume fraction]22.5 %Lil75-07UpcMbyvhv [place] HospitalComment on above:Performed By: #### CBCA ####[facility] ([facility])[address], [place] [address] VIRHemoglobin (Bld) [Mass/Vol]7.7 g/dLLow11.7-15.5PSelect Medical [facility] HospitalComment on above: Performed By: #### CBCA ####[facility] ([facility])[address], [place] [address] VIRMCH (RBC) [Entitic mass]31.0 goSrklho54-31 ProMGuernsey Memorial Hospital HospitalComment on above:Performed By: #### CBCA ####[facility] ([facility])[address], [place] [address] VIR MCHC (RBC) [Mass/Vol]34.1 g/rFVoapcw23-31ZstOzjimq [place] HospitalComment on above:Performed By: #### CBCA ####[facility] ([facility])[address], [place] [address] VIRMCV (RBC) [Entitic vol]91 yJAxvpqk63-735 ProMGuernsey Memorial Hospital HospitalComment on above:Performed By: #### CBCA ####[facility] ([facility])[address], [place] [address] VIR Platelet mean volume (Bld) [Entitic vol]9.0 fLNormal7-12ProMedLakeHealth [facility] HospitalComment on above:Performed By: #### CBCA ####[facility] ([facility])[address] [address] VIRPlatelets (Bld) [#/Vol]152 10*3/dSCygequ245-351TabGlvkvt [facility] HospitalComment on above: Performed By: #### CBCA ####[facility] ([facility])[address] [address] VIRRBC COUNT2.48 X10E12/LLow3.8-5.2ProMedica [place] HospitalComment on above:Performed By: #### CBCA ####[facility] ([facility])[address] [address] VIRWBC (Bld) [#/Vol]10.6 10*3/uLNormal4-11Pro[facility] HospitalComment on above:Performed By: #### CBCA ####[facility] ([facility])[address] [address] VIRIONIZED CALCIUMon 97-44-9953HSPIWOO CALCIUMICA IONIZED CALCIUM CancelledNormalProMedica Boggs HospitalIONIZED CALCIUM - ICAN4.7 mg/dL Normal4.5-5.3PSelect Medical [facility] HospitalComment on above:Performed By: #### ICA ####[facility] ([facility])[address] [address] VIRIONIZED MAGNESIUMon 08-29-5403YXMCXRV MAGNESIUMIMAG IONIZED MAGNESIUM CancelledNormalProMedica Stout HospitalMagnesium [Moles/Vol]0.31 mmol/LLow 0.45-0.74ProMedica [facility] HospitalComment on above:Performed By: #### IMAG ####[facility] ([facility])[address] [address] VIRMAGNESIUMon 17-68-9191RDVWYMNFTNN MAGNESIUM CancelledNormalProMedica Boggs HospitalPHOSPHORUSon 61-66-6836KQMBVZVBOJPNHG PHOSPHORUS CancelledNormal ProMedicProMedica Memorial HospitalBASIC METABOLIC PANLon 13-54-7588Snrla gap [Moles/Vol]7 mmol/LNormal5-15ProOur Lady Of Mercy Hospital HospitalComment on above:Performed By: #### ILEANA EID, , 2776-02 ####[facility] ([id number])[address], [place] [address]Xvtgjee [Mass/Vol]6.7 mg/dLCritically low 8.5-10.5PSelect Medical [facility] HospitalComment on above:Performed By: #### ILEANA EID, , 2776-02 ####[facility] ([id number])[address], [address], [place] [address]Sslsmgoi [Moles/Vol]104 mmol/EQyvhhb36-996RbkLokmuk [place] HospitalComment on above:Performed By: #### ILEANA EID, , 2776-02 ####[facility] ([id number])[address], [address], [place] [address]DP1 [Moles/Vol]25 mmol/TEefaay64-98PkjKsgnvo [place] HospitalComment on above:Performed By: #### ILEANA EID, , 2776-02 ####[facility] ([id number])[address], [address] [facility], [place] [address]Qwhfsydwjx [Mass/Vol] 0.32 mg/dLLow0.40-1.00ProOur Lady Of Mercy Hospital HospitalComment on above:Result Comment: METHOD TRACEABLE TO IDMS STANDARDPerformed By: #### ILEANA EID, , 2776-02 ####[facility] ([id number])[address], [address], [place] [address]yKYO (CKD-EPI) NON-RACE DEPENDENT>90Normal>59ProOur [facility] Of Mercy Hospital Hospital Comment on above:Result Comment: Reported eGFR is based on theCKD-EPI 2020 equation that doesnot use a race coefficient.Performed By: #### ILEANA EID, , 2776-02 ####[facility] ([id number])[address], [address] [place], [place] [address]Rgcbhbq [Mass/Vol]122 mg/qYLlbx42-29ZjkXeckxv [place] HospitalComment on above:Performed By: #### ILEANA EID, , 2776-02 ####[facility] ([id number])[address], [address] [place], [place] [address]Fnfqazpmu [Moles/Vol]3.5 mmol/LNormal3.5-5.0ProOhio[facility] Comment on above:Performed By: #### ILEANA EID, , 2776-02 ####[facility] ([id number])[address] [address] [place] [address] Sodium [Moles/Vol]136 mmol/AJlyyhk719-703KpuWqdhsu [place] HospitalComment on above:Performed By: #### ILEANA EID, , 2776-02 ####[facility] ([id number])[address] [address] [place] [address]Zogg nitrogen [Mass/Vol]11 mg/dLNormal5-23ProOur [facility] Of Mercy Hospital HospitalComment on above:Performed By: #### ILEANA EID, , 2776-02 ####[facility] ([id number])[address], [address] [place] [address], [place] [address]RNX AND AUTO DIFFon 03-12-2534Jhyf form neutrophils/100 WBC (Bld)3.0 %NormalProOhiohealth Southeastern Medical CenterComment on above:Performed By: #### RAGINI ####[facility] ([id number])[address] [address] [place] [address]Kqgzwqszivr (Bld) [#/Vol]0.1 10*3/uLNormal0.0-0.4Pro[facility] HospitalComment on above: Performed By: #### CBCA ####[facility] ([id number])[address], [address] [address]Bhbgmfvlkag/100 WBC (Bld)1.0 %Normal [facility] HospitalComment on above:Performed By: #### CBCA ####[facility] ([id number])[address], [address] [address] Erythrocyte distribution width (RBC) [Ratio]16.5 %High11.5-15.0Pro[facility]ica [facility] HospitalComment on above:Performed By: #### CBCA ####[facility] ([id number])[address], [address], [place] [address]Qspsqbnxmp (Bld) [Volume fraction]21.7 %Rwb52-99CqkNpqbgh [facility] HospitalComment on above: Performed By: #### CBCA ####[facility] ([id number])[address] [address] [address]Ebqveczfei (Bld) [Mass/Vol]7.2 g/dLLow 11.7-15.5Pro[facility] HospitalComment on above:Performed By: #### CBCA ####[facility] ([id number])[address], [address] [facility] [address]Ojliuknwdsw (Bld) [#/Vol]0.9 10*3/uLLow1.0-3.5[facility] Comment on above:Performed By: #### CBCA ####[facility] ([id number])[address], [address] [facility] [address]Fswwwaohsbt/100 WBC (Bld) 8.0 %NormalProMedica Boggs HospitalComment on above:Performed By: #### CBCA ####[facility] ([id number])[address], [address] [facility] [address]FZZ (RBC) [Entitic mass]30.1 ikNtcdmw89-67EriIzxjfk [facility] HospitalComment on above:Performed By: #### CBCA ####[facility] ([id number])[address], [address] [address]IQIP (RBC) [Mass/Vol]33.4 g/fQByckln07-98NwhLqwfzf [facility] HospitalComment on above:Performed By: #### CBCA ####[facility] ([id number])[address], [address] [address]ECN (RBC) [Entitic vol]90 oGOnhdir04-610GswWsghhs [facility] HospitalComment on above:Performed By: #### CBCA ####[facility] ([id number])[address], [address], [place] [address]Wulneohre (Bld) [#/Vol]1.0 10*3/uLHigh0-0.9Pro[facility] HospitalComment on above:Performed By: #### CBCA ####[facility] ([id number])[address], [address], [place] [address]Tddvbpivl/100 WBC (Bld)9.0 %NormalProMedica [facility] Hospital Comment on above:Performed By: #### CBCA ####[facility] ([id number])[address], [address] [facility] [address]SKOALDHWT9.0 %Normal [facility] HospitalComment on above:Performed By: #### CBCA ####[facility] ([id number])[address], [address] [address] Neutrophils (Bld) [#/Vol]9.1 10*3/uLHigh1.5-6.6Pro[facility] HospitalComment on above:Performed By: #### CBCA ####[facility] ([id number])[address], [address] [place], [place] [address]Tuyquwdj mean volume (Bld) [Entitic vol]8.9 fLNormal7-12Pro[facility] HospitalComment on above:Performed By: #### CBCA ####[facility] ([id number])[address], [address] [place], [place] [address]Eowcgiaxo (Bld) [#/Vol]141 10*3/wSXno019-837JcwPybkuc [facility] HospitalComment on above:Performed By: #### CBCA ####[facility] ([id number])[address], [address] [place], [place] [address]JFEDKWIJDMGZH6+Abnormal NONEProMedica Boggs HospitalComment on above:Performed By: #### CBCA ####[facility] ([id number])[address], [address] [place], [place] [address]ASS COUNT2.40 X10E12/LLow3.80-5.20[facility] HospitalComment on above: Performed By: #### CBCA ####[facility] ([id number])[address], [address] [place], [place] [address]LJE QUTIGKJPED42.0 %NormalProMedica Boggs HospitalComment on above:Performed By: #### CBCA ####[facility] ([id number])[address], [address] [place], [place] [address]CIT (Bld) [#/Vol]11.4 10*3/uLHigh4.0-11.0Pro[facility] HospitalComment on above:Performed By: #### CBCA ####[facility] ([id number])[address], [address], [place] [address]ZGGMLEOO BASOPHIL0.0 X10E9/LNormal0.0-0.2[facility] HospitalComment on above:Performed By: #### CBCA, BMP, , 2776-02 ####[facility] ([id number])[address], [address] [place], [place] [address]UCBCTFKG NEUTROPHIL7.4 X10E9/LHigh1.5-6.6[facility] HospitalComment on above:Performed By: #### CBCA, BMP, , 2776-02 ####[facility] ([id number])[address], [address] [place], [place] [address]Bvehrjiar/100 WBC (Bld)0.4 %NormalProWadsworth-Rittman Hospitalca Stout HospitalComment on above:Performed By: #### CBCA, BMP, , 2776-02 ####[facility] ([id number])[address], [address] [place], [place] [address]Vmasezwcrle (Bld) [#/Vol]0.1 10*3/uLNormal 0.0-0.4ProWadsworth-Rittman Hospitalca Stout HospitalComment on above:Performed By: #### CBCMagen, BMP, , 2776-02 ####[facility] ([id number])[address] [address] [place], [place] [address]Ixvjugdddhv/100 WBC (Bld)0.9 %NormalProWadsworth-Rittman Hospitalca [facility] HospitalComment on above:Performed By: #### CBCA, BMP, , 2776-02 ####[facility] ([id number])[address], [address] [place], [place] [address]Aperpkrxcmj distribution width (RBC) [Ratio]16.5 %High11.5-15.0ProWadsworth-Rittman Hospitalca [facility] HospitalComment on above:Performed By: #### CBCA, BMP, , 2776-02 ####[facility] ([id number])[address], [address], [place] [address]Kulbamisks (Bld) [Volume fraction]21.2 %Qpb21-40SfxJjrkqj [place] [facility] Comment on above:Performed By: #### CBCMagen, BMP, , 2776-02 ####[facility] ([id number])[address], [address] [address] Hemoglobin (Bld) [Mass/Vol]7.3 g/dLLow11.7-15.5ProMedLakeHealth [facility] HospitalComment on above:Performed By: #### CBCMagen, BMP, , 2776-02 ####[facility] ([id number])[address], [address] [place], [place] [address]Klxwbpefajy (Bld) [#/Vol]2.1 10*3/uLNormal1.0-3.5PSelect [facility] HospitalComment on above: Performed By: #### CBCMagen, BMP, , 2776-02 ####[facility] ([id number])[address] [address] [place], [place] [address]Ajgnezmdjmb/100 WBC (Bld) 20.4 %NormalProOur Lady Of Mercy Hospital HospitalComment on above:Performed By: #### CBCMagen, ILEANA, , 2776-02 ####[facility] ([id number])[address], [address], [place] [address]JOV (RBC) [Entitic mass]31.0 kpQpsukw28-27 [facility] HospitalComment on above:Performed By: #### CBCA, BMP, , 2776-02 ####[facility] ([id number])[address], [address] [place], [place] [address]ILOD (RBC) [Mass/Vol]34.4 g/jTWlwgcf97-43YltKkfgbi [facility] HospitalComment on above:Performed By: #### CBCA, BMP, , 2776-02 ####[facility] ([id number])[address], [address] [place], [place] [address]KSN (RBC) [Entitic vol]90 jVYfawcx61-732XbsHskkyq [facility] HospitalComment on above:Performed By: #### CBCMagen, BMP, , 2776-02 ####[facility] ([id number])[address], [address], [place] [address]Repdmdltj (Bld) [#/Vol]0.7 10*3/uLNormal0-0.9[facility] HospitalComment on above:Performed By: #### CBCMagen, BMP, , 2776-02 ####[facility] ([id number])[address], [address], [place] [address]Fhyaglnji/100 WBC (Bld)6.6 %NormalProMedica Boggs HospitalComment on above:Performed By: #### CBCMagen, ILEANA, , 2776-02 ####[facility] ([id number])[address], [address], [place] [address]Rzgmggbtnzp/100 WBC (Bld)71.7 %NormalProMedica Boggs HospitalComment on above:Performed By: #### CBCMagen, BMP, , 2776-02 ####[facility] ([id number])[address], [address] [place], [place] [address]Eeafmddc mean volume (Bld) [Entitic vol]9.0 fLNormal7-12[facility] HospitalComment on above:Performed By: #### CBCA, BMP, , 2776-02 ####[facility] ([id number])[address], [address], [place] [address]Pvblqoffd (Bld) [#/Vol]156 10*3/fJYyftpn262-253HxkXngmst [facility] Comment on above:Performed By: #### RAGINI, ILEANA, , 2776-02 ####[facility] ([id number])[address] [address] [place] [address]XFE COUNT2.36 X10E12/LLow3.80-5.20ProOur [facility] HospitalComment on above: Performed By: #### ILEANA EID, , 2776-02 ####[facility] ([id number])[address], [address] [place] [address]AQD (Bld) [#/Vol]10.3 10*3/uLNormal4.0-11.0ProOur [facility] HospitalComment on above:Performed By: #### ILEANA EID, , 2776-02 ####[facility] ([id number])[address], [address] [place] [address]Typzvlw.ionized (Bld) [Mass/Vol]on 71-51-8799UCHERDE CALCIUM4.6 mg/dLNormal4.5-5.3PSelect [facility] HospitalComment on above:Performed By: #### 23232-3 ####[facility] ([id number])[address] [address] [place] [address]UJKHISU CALCIUM4.0 mg/dLLow4.5-5.3PSelect [facility] HospitalComment on above:Performed By: #### 49151-4, 68385-4 ####[facility] ([id number])[address], [address] [place] [address]Ekusleg Glucometer (BldC) [Mass/Vol]on 06-05-2024 Glucose [Mass/Vol]101 mg/jEIrpg18-11ZukMbnfea [place] HospitalGlucose [Mass/Vol] 98 mg/kGForbls83-55TfrXgvvdt [place] HospitalGlucose [Mass/Vol]115 mg/hZHevj22-01 [facility] Medical CenterMAGNESIUMon 54-73-1682Dhirhnttf [Mass/Vol]2.6 mg/dL Normal1.8-2.6ProOur [facility] HospitalComment on above:Performed By: #### ILEANA EID, , 2777-1 ####[facility] ([id number])[address] [place], [place] [address]Dujugvmqw Ionized ISE (Bld) [Moles/Vol]on 35-40-2525Rmosvdlhk [Moles/Vol]0.79 mmol/LHigh0.45-0.74[facility] Comment on above:Result Comment: NEW REFERENCE RANGEPerformed By: #### 99457-0, 03230-6 ####[facility] ([id number])[address], [address] [place] [address]FDFDLAKYJNqb 27-30-6088Rtuifxzsl [Mass/Vol]3.2 mg/dLNormal 2.4-4.9ProOur [facility] HospitalComment on above:Performed By: #### ILEANA EID, , 27708-10 ####[facility] ([id number])[address], [address] [place] [address]DYENUOZYVxa 50-13-8823Gmirteczo [Moles/Vol]4.0 mmol/L Normal3.5-5.0ProOhiohealth Southeastern Medical CenterComment on above:Performed By: #### 2823-3 ####[facility] ([id number])[address], [address] [place] [address]UEOFKQAQ BLOOD GASon 39-07-7386JHNSJ'S TESTNormalProOur Lady Of [facility] HospitalComment on above:Performed By: #### ABG ####[facility] ([id number])[address], [place] [address]FARN,DEFICIT1.0 MMOL/LNormal0.0-2.0 [facility] HospitalComment on above:Performed By: #### ABG ####[facility] ([id number])[address] [facility] [place], [place] [address]Igur xomfcbebhlj27.6 [degF]Aoghpd36.0[facility] HospitalComment on above: Performed By: #### ABG ####[facility] ([address] [place] [address])[address] [facility] [place], [place] [address]VXC9 (Bld) [Moles/Vol]22.8 mmol/GKlxeia77-67IefStaqdg [facility] HospitalComment on above:Performed By: #### ABG ####[facility] ([address] [place] [address])2141 [facility], [place] [address]PVLY. O2 CONC.28 %NormalProMedica Boggs HospitalComment on above:Performed By: #### ABG ####[facility] ([address] [place] [address])[address]141 [facility], [place] [address]Qfwffd (Bld) [Partial pressure]76 mm[Hg]Tui99-395CxfNtqtzf [facility] HospitalComment on above:Performed By: #### ABG ####[facility] ([address] [place] [address])2141 [facility] [place] [address]Nxkeje saturation in Blood96.0 %Normal>90[facility] Comment on above:Performed By: #### ABG ####[facility] ([address] [place] [address])2141 [facility] [place] [address]SBOXMF SOURCENCNormalProMedica Boggs HospitalComment on above:Performed By: #### ABG ####[facility] ([address] [place] [address])[address] [facility], [place] [address]LJZ307.0 QVFXSst81-59 [facility] HospitalComment on above:Performed By: #### ABG ####[facility] ([id number])[address] [place], [place] [address]rF (Bld)7.460 [pH]High7.350-7.450ProOur [facility] HospitalComment on above:Performed By: #### ABG ####[facility] ([id number])[address] [place] [address] SAMPLE SITELRadNoGood Samaritan Hospital HospitalComment on above:Performed By: #### ABG ####[facility] ([id number])[address] [place], [place] [address]GRMQBK TYPEARTERIALNormalTrinity Health System [facility] HospitalComment on above: Performed By: #### ABG ####[facility] ([id number])[address] [place], [place] [address]ZFY AND AUTO DIFFon 36-70-5871Eybk form neutrophils/100 WBC (Bld)2.0 %NormalProOur Lady Of Mercy Hospital HospitalComment on above:Performed By: #### CBCA ####[facility] ([id number])[address] [address] [place] [address]Tlgkuyzavfg distribution width (RBC) [Ratio]16.3 %High 11.5-15.0[facility] HospitalComment on above:Performed By: #### CBCA ####[facility] ([id number])[address] [address] [place] [address]Gehuafbrte (Bld) [Volume fraction]22.4 %Bie87-33IbzYalcou [facility] [facility] Comment on above:Performed By: #### CBCA ####[facility] ([id number])[address] [address]Yzmkgmvtem (Bld) [Mass/Vol] 7.5 g/dLLow11.7-15.5PFort Hamilton HospitalComment on above:Performed By: #### CBCA ####[facility] ([id number])[address], [place] [address]Uyridfwvvod (Bld) [#/Vol]1.7 10*3/uLNormal1.0-3.5[facility] HospitalComment on above:Performed By: #### CBCA ####[facility] ([id number])[address], [address] [address]Iotubmqmisw/100 WBC (Bld)15.0 %NormalProMedica Boggs HospitalComment on above:Performed By: #### CBCA ####[facility] ([id number])[address], [address], [place] [address]OHU (RBC) [Entitic mass]29.6 pvEywqbx66-81BvtRhkuyl [facility] HospitalComment on above:Performed By: #### CBCA ####[facility] ([id number])[address], [address] [facility] [address]TKVX (RBC) [Mass/Vol] 33.6 g/oGXflacq13-82SztKxxxci [facility] HospitalComment on above:Performed By: #### CBCA ####[facility] ([id number])[address], [address] [place] [address], [place] [address]QMN (RBC) [Entitic vol]88 kSDfaytx51-519CiyMufzma [facility] HospitalComment on above:Performed By: #### CBCA ####[facility] ([id number])[address] [address], [place] [address]Qmneslwxf (Bld) [#/Vol] 0.7 10*3/uLNormal0-0.9[facility] HospitalComment on above:Performed By: #### CBCA ####[facility] ([id number])[address], [address], [place] [address]Wtvuhdfdo/100 WBC (Bld)6.0 %NormalProMedica [facility] Hospital Comment on above:Performed By: #### CBCA ####[facility] ([id number])[address] [address]XBHYDSSEO9.0 %Normal [facility] HospitalComment on above:Performed By: #### CBCA ####[facility] ([id number])[address] [address] Neutrophils (Bld) [#/Vol]8.9 10*3/uLHigh1.5-6.6[facility] HospitalComment on above:Performed By: #### CBCA ####[facility] ([id number])[address], [address], [place] [address]IBEDFGTFB RBC1.0 /100 WBC Normal0.0-1.0[facility] HospitalComment on above:Performed By: #### CBCA ####[facility] ([id number])[address], [address], [place] [address]Mwjquswm mean volume (Bld) [Entitic vol]8.8 fLNormal7-12[facility] HospitalComment on above:Performed By: #### CBCA ####[facility] ([id number])[address], [address], [place] [address]Tezsdomjj (Bld) [#/Vol] 165 10*3/bGYgzakn662-518CrrUwsmxa [facility] HospitalComment on above:Performed By: #### CBCA ####[facility] ([id number])[address], [address] [address]HKDGEKWOOBZAF0+AbnormalNONEProMedica Boggs HospitalComment on above:Performed By: #### CBCA ####[facility] ([id number])[address], [address] [address]JTI COUNT2.55 X10E12/LLow 3.80-5.20[facility] HospitalComment on above:Performed By: #### CBCA ####[facility] ([id number])[address], [address] [place] [address]CCA IQSOSTAOFR34.0 %NormalProMedica Boggs HospitalComment on above: Performed By: #### CBCA ####[facility] ([id number])[address], [address] [place] [address]ZAS (Bld) [#/Vol]11.4 10*3/uLHigh4.0-11.0 [facility] HospitalComment on above:Performed By: #### CBCA ####[facility] ([id number])[address], [address] [place] [address] ABSOLUTE BASOPHIL0.0 X10E9/LNormal0.0-0.2[facility] HospitalComment on above:Performed By: #### CBCA, CMP, 27708-10, 15995-9 ####[facility] ([id number])[address], [address] [place] [address]LTERWWHG NEUTROPHIL9.8 X10E9/LHigh1.5-6.6ProOur [facility] Of [facility] HospitalComment on above:Performed By: #### CBCA, CMP, 2776-02, ####[facility] ([id number])[address], [address] [place] [address]Tfseqoplw/100 WBC (Bld)0.2 %NormalProWadsworth-Rittman Hospitalca [facility] HospitalComment on above:Performed By: #### CBCA, CMP, 2776-02, ####[facility] ([id number])[address], [address] [place] [address] 68954Pdlmbiotrnl (Bld) [#/Vol]0.0 10*3/uLNormal0.0-0.4[facility] Comment on above:Performed By: #### CBCA, CMP, 2776-02, ####[facility] ([id number])[address] [address] [address] Eosinophils/100 WBC (Bld)0.1 %NormalProOur Lady Of Mercy Hospital HospitalComment on above: Performed By: #### CBCA, CMP, 2776-02, ####[facility] ([id number])[address], [address] [address]Xjxwrbyhfgj distribution width (RBC) [Ratio]16.1 %High11.5-15.0ProOur [facility] Of Mercy Hospital HospitalComment on above: Performed By: #### CBCMagen, CMP, 2776-02, ####[facility] ([id number])[address] [address], [place] [address]Mrmneyganc (Bld) [Volume fraction]23.7 %Udx06-43GspCafbdi [place] HospitalComment on above:Performed By: #### CBCMagen, CMP, 2776-02, ####[facility] ([id number])[address] [address], [place] [address]Iginqsiozn (Bld) [Mass/Vol] 8.0 g/dLLow11.7-15.5PSelect [facility] HospitalComment on above:Performed By: #### CBCA, CMP, 2776-02, ####[facility] ([id number])[address] [address], [place] [address]Uogxtizlzkt (Bld) [#/Vol]0.9 10*3/uLLow 1.0-3.5PSelect [facility] HospitalComment on above:Performed By: #### CBCA, CMP, 2776-02, ####[facility] ([id number])[address] [address] [address]Uwmhzzpguan/100 WBC (Bld)7.8 %NormalProMedica Stout HospitalComment on above:Performed By: #### CBCA, CMP, 2776-02, ####[facility] ([id number])[address], [address] [place] [address] 07773CXW (RBC) [Entitic mass]30.2 noAqcriv05-39RovSzrjug Boggs HospitalComment on above:Performed By: #### CBCA, CMP, 2776-02, ####[facility] ([id number])[address], [address] [place] [address] 74872JGSE (RBC) [Mass/Vol]33.8 g/fYVtebon51-69EgdOrtjbl Boggs HospitalComment on above: Performed By: #### CBCA, CMP, 2776-02, ####[facility] ([id number])[address], [address] [place] [address] 99060HIP (RBC) [Entitic vol]89 kBScifau58-078RanRkzivt [facility] HospitalComment on above:Performed By: #### CBCA, CMP, 2776-02, ####[facility] ([id number])[address], [address] [place] [address] 62118Xnetvopkx (Bld) [#/Vol]0.4 10*3/uLNormal0-0.9 [facility] HospitalComment on above:Performed By: #### CBCA, CMP, 2776-02, ####[facility] ([id number])[address] [address] [place] [address] 88517Cxdshdacy/100 WBC (Bld)3.9 %NormalProWadsworth-Rittman Hospitalca [facility] Comment on above:Performed By: #### CBCA, CMP, 2776-02, ####[facility] ([id number])[address], [address] [place] [address] 74268 Neutrophils/100 WBC (Bld)88.0 %NormalProMedica Boggs HospitalComment on above: Performed By: #### CBCMagen, CMP, 2776-02, ####[facility] ([id number])[address], [address] [place] [address] 41007Ogobpsxw mean volume (Bld) [Entitic vol]8.9 fLNormal7-12[facility] HospitalComment on above:Performed By: #### CBCMagen CMP, 2776-02, ####[facility] ([id number])[address], [address] [place] [address] 88637Cvpunxzpb (Bld) [#/Vol]166 10*3/mLTnvumb545-131SvwFwtbqa [facility] HospitalComment on above:Performed By: #### RAGINI CMP, 2776-02, ####[facility] ([id number])[address], [address] [place] [address] 92823CFV COUNT2.66 X10E12/LLow3.80-5.20[facility] HospitalComment on above:Performed By: #### RAGINI, CMP, 2776-02, ####[facility] ([id number])[address] [address] [place] [address] 05745HBB (Bld) [#/Vol]11.2 10*3/uLHigh4.0-11.0[facility] HospitalComment on above:Performed By: #### CBCMagen, CMP, 2776-02, ####[facility] ([id number])[address] [address] [place] [address] 34449JZRCBHFKKIUNX METABOLIC PANELon 52-90-5702Qrhyoxf [Mass/Vol]3.0 g/dLLow3.2-5.3ProMedica Boggs HospitalComment on above:Performed By: #### RAGINI CMP, 2776-02, ####[facility] ([id number])[address], [address], [place] [address]DTK [Catalytic activity/Vol]40 U/NCuzgzu12-779RijZdwmny [facility] Comment on above:Performed By: #### RAGINI CMP, 2776-02, ####[facility] ([id number])[address], [address], [place] [address]QRT [Catalytic activity/Vol]10 U/LNormal0-31PSelect [facility] HospitalComment on above:Performed By: #### RAGINI CMP, 2776-02, ####[facility] ([id number])[address], [address], [place] [address]Iqoxv gap [Moles/Vol]7 mmol/LNormal5-15ProOhiohealth Southeastern Medical CenterComment on above:Performed By: #### CARMEN EID, 2776-02, ####[facility] ([id number])[address], [address], [place] [address]XXX [Catalytic activity/Vol]16 U/LNormal0-41 ProMGuernsey [facility] Hospital HospitalComment on above:Performed By: #### RAGINI CMP, 2776-02, ####[facility] ([id number])[address], [address], [place] [address]Xexqzndcj [Mass/Vol]0.3 mg/dLNormal0.3-1.2PSelect [facility] HospitalComment on above:Performed By: #### RAGINI CMP, 2776-02, ####[facility] ([id number])[address], [address], [place] [address]Cmftxee [Mass/Vol]6.2 mg/dLCritically low8.5-10.5PFort [facility] Comment on above:Performed By: #### CARMEN EID, 2776-02, ####[facility] ([id number])[address], [address] [address] Chloride [Moles/Vol]107 mmol/PDukvzp11-109JknMdyqjd [place] HospitalComment on above:Performed By: #### CARMEN EID, 2776-02, ####[facility] ([id number])[address], [address] [address]JD6 [Moles/Vol]23 mmol/KSqyvhu19-88HpnPanxttFort Hamilton HospitalComment on above:Performed By: #### CARMEN EID, 2776-02, ####[facility] ([id number])[address] [address] [address]Ackiargwyj [Mass/Vol]0.33 mg/dLLow0.40-1.00 [facility] Memorial HospitalComment on above:Result Comment: METHOD TRACEABLE TO IDMS STANDARDPerformed By: #### CARMEN EID, 2776-02, ####[facility] ([id number])[address] [address] [address]jADX (CKD-EPI) NON-RACE DEPENDENT>90Normal>59ProOur [facility] Of Mercy Hospital HospitalComment on above:Result Comment: Reported eGFR is based on theCKD-EPI 2020 equation that doesnot use a race coefficient.Performed By: #### CARMEN EID, 2776-02, ####[facility] ([id number])[address] [address] [address] Glucose [Mass/Vol]186 mg/mNBhwz11-68BnmGqkusq [place] HospitalComment on above: Performed By: #### CARMEN EID, 2776-02, ####[facility] ([id number])[address], [address], [place] [address]Hchmkpetx [Moles/Vol]4.2 mmol/LNormal3.5-5.0ProWadsworth-Rittman Hospitalca [facility] HospitalComment on above:Performed By: #### CARMEN EID, 2776-02, ####[facility] ([id number])[address], [address], [place] [address]Kblvzfr [Mass/Vol]5.1 g/dLLow6.0-8.0 [facility] HospitalComment on above:Performed By: #### CARMEN EID, 2776-02, ####[facility] ([id number])[address], [address], [place] [address]Gucwws [Moles/Vol]137 mmol/WDsnill807-096ReqYnbhgs [place] HospitalComment on above:Performed By: #### CARMEN EID, 2776-02, ####[facility] ([id number])[address] [address], [place] [address]Wpur nitrogen [Mass/Vol]5 mg/dLNormal5-23ProOur Lady Of Mercy Hospital HospitalComment on above:Performed By: #### CARMEN EID, 2776-02, ####[facility] ([id number])[address] [address] [place] [address]Jqtcuia.ionized (Bld) [Mass/Vol]on 16-19-0089VHARRIO CALCIUM3.7 mg/dLLow4.5-5.3PPrairieville Family Hospitalica [facility] HospitalComment on above:Performed By: #### 04389-2, 19907-7 ####[facility] ([id number])[address], [address] [address]Ghhjvpt Glucometer (BldC) [Mass/Vol]on 45-51-4534Vpkohoe [Mass/Vol]131 mg/xSDqqs02-58 [facility] HospitalGlucose [Mass/Vol]135 mg/gDIjay19-84YpkZzxfdb [place] HospitalGlucose [Mass/Vol]155 mg/aNOhuz56-08RplFctqti [place] HospitalGlucose [Mass/Vol]165 mg/dXLzon72-05FlkGpdmdr [place] HospitalMAGNESIUMon 06-04-2024 Magnesium [Mass/Vol]5.7 mg/dLCritically high1.8-2.6[facility] Comment on above:Performed By: #### CARMEN EID, 2777-1, ####[facility] ([id number])[address], [address] [address] Magnesium Ionized ISE (Bld) [Moles/Vol]on 10-52-7847Ycchrkusd [Moles/Vol]1.50 mmol/LHigh0.45-0.74ProOhiohealth Southeastern Medical CenterComment on above:Result Comment: NEW REFERENCE RANGEPerformed By: #### 14356-0, 36207-3 ####[facility] ([id number])0 [facility], [address], [place] [address]IGZKRUWCEEgd 08-50-3852Vggwboekt [Mass/Vol]3.1 mg/dLNormal2.4-4.9[facility] Comment on above:Performed By: #### CARMEN EID, 2777-, ####[facility] ([id number])[address], [address], [place] [address]DY CHEST 1 VWon 03-53-2768GX CHEST 1 VWNormalProMedica Memorial HospitalARTERIAL BLOOD GASon 22-25-1643PZZVL'S TESTNormalProMedica Memorial HospitalComment on above:Performed By: #### ABG ####[facility] ([id number])[address] [place], [place] [address]UICW,OPJPPYF50.0 MMOL/LHigh0.0-2.0ProOhiohealth Southeastern Medical CenterComment on above:Performed By: #### ABG ####[facility] ([id number])[address] [facility] [place] [place] [address]Cddl awknpoimiuv42.6 [degF]Normal 37.0ProMedica [facility] HospitalComment on above:Performed By: #### ABG ####[facility] ([id number])[address] N[facility] ERIEJf BLJOHANNATONEW[place], [place] [address]YCB3 (Bld) [Moles/Vol]12.6 mmol/YQwl92-61PseDbodol Boggs HospitalComment on above: Performed By: #### ABG ####[facility] ([address] [place] [address])[address] [facility]VDTOLEHIGH [facility]LEY [facility] [place], [place] [address]Ncfkup (Bld) [Partial pressure]78 mm[Hg]Drl65-670PptUfhpik [facility] HospitalComment on above:Performed By: #### ABG ####[facility] ([address] [place] [address])[address] CENTERVDTOLEH[facility] [place] [place], [place] [address]Cvhlwk saturation in Blood95.0 %Normal>90ProMedica [facility] HospitalComment on above:Performed By: #### ABG ####[facility] ([address] [place] [address])[address] [place]VD[place], [place] [address]FDAJIW SOURCENCNormalProMedica Stout HospitalComment on above:Performed By: #### ABG ####[facility] ([address] [place] [address])2[address] NSELECT [facility] [facility] ERIEJf BLVDT[place], [place] [address]TTM639.4 EZVUUjs47-42FilSslbhm Boggs HospitalComment on above: Performed By: #### ABG ####[facility] ([address] [place] [address])[address], [place] [address]xA (Bld)7.339 [pH]Low7.350-7.450[facility] Comment on above:Performed By: #### ABG ####[facility] ([id number])[address] N[address] [facility] BLVD[place], [place] [address]BCHPSZ SITEALineNormalProMedica Stout HospitalComment on above:Performed By: #### ABG ####[facility] ([id number])[address] [facility] – [place]Jf [place], [place] [address]WYNZXV TYPEARTERIAL NormalProMedica Stout HospitalComment on above:Performed By: #### ABG ####[facility] ([id number])[address] [place] [address] BASIC METABOLIC PANLon 73-29-2332Tbkql gap [Moles/Vol]12 mmol/LNormal5-15 [facility]ica [facility] HospitalComment on above:Performed By: #### 16030-9, ILEANA, , ####[facility] ([id number])[address], [address], [place] [address]Wnnvgtx [Mass/Vol]5.8 mg/dLCritically low8.5-10.5ProMedica [facility] HospitalComment on above:Performed By: #### 92358-6, ILEANA, 2776-02, ####[facility] ([id number])[address], [address], [place] [address]Vpjxwyjy [Moles/Vol]109 mmol/ZLdfxev83-372UmqPbwobe [facility] Comment on above:Performed By: #### 20728-5, ILEANA, 2776-02, ####[facility] ([id number])[address], [address], [place] [address]MB0 [Moles/Vol]17 mmol/RCsq74-91LidSgurnu [facility] HospitalComment on above:Performed By: #### 23354-9, ILEANA, 2776-02, ####[facility] ([id number])[address], [address], [place] [address]Ztmcmfthzl [Mass/Vol]0.39 mg/dLLow0.40-1.00ProMedica Boggs HospitalComment on above:Result Comment: METHOD TRACEABLE TO IDMS STANDARDPerformed By: #### 36509-9, ILEANA, 2776-02, ####[facility] ([id number])[address], [address]TOLEH[facility] [place] [address]sGWP (CKD-EPI) NON-RACE DEPENDENT>90Normal>59[facility] Comment on above:Result Comment: Reported eGFR is based on theCKD-EPI 2020 equation that doesnot use a race coefficient.Performed By: #### 74147-4, ILEANA, 2776-02, ####[facility] ([id number])[address] [address] [address]Yzzuvjp [Mass/Vol]197 mg/bHQpuk07-13LoqWnfirbProMedica Memorial HospitalComment on above:Performed By: #### 88855-7, ILEANA, 2776-02, ####[facility] ([id number])[address] [address] [address]Gequxxzwz [Moles/Vol]3.7 mmol/LNormal3.5-5.0[facility] Comment on above:Performed By: #### 52173-6, ILEANA, 2776-02, ####[facility] ([id number])[address] [address] [address] Performed By: #### 2823-3 ####[facility] ([id number])[address] [address]TOLEH[facility] [place], [place] [address]Vklfor [Moles/Vol]138 mmol/QDijqkz994-818 ProMMercy Health West HospitalComment on above:Performed By: #### 43903-9, ILEANA, , ####[facility] ([id number])[address] [address] [address]Glgs nitrogen [Mass/Vol]5 mg/dLNormal5-23ProMedica [facility] HospitalComment on above:Performed By: #### 16028-3, ILEANA, 2776-02, ####[facility] ([id number])[address], [address], [place] [address]Nifec gap [Moles/Vol]13 mmol/LNormal5-15Pro[facility] HospitalComment on above:Performed By: #### ILEANA EID, , 2776-02 ####[facility] ([id number])[address], [address], [place] [address]Kelgwgo [Mass/Vol]6.3 mg/dLCritically low8.5-10.5ProMedica Boggs HospitalComment on above:Performed By: #### ILEANA EID, , 2776-02 ####[facility] ([id number])[address], [address], [place] [address]Kkwjcsed [Moles/Vol] 108 mmol/QRigacp75-646FlfOdwoem [facility]gs HospitalComment on above:Performed By: #### ILEANA EID, , 2776-02 ####[facility] ([id number])[address], [address], [place] [address]MK7 [Moles/Vol]14 mmol/LLow 22-32ProMedica Boggs HospitalComment on above:Performed By: #### ILEANA EID, , 2776-02 ####[facility] ([id number])[address], [address], [place] [address]Vlhvdljumu [Mass/Vol]0.44 mg/dLNormal0.40-1.00Pro[facility] HospitalComment on above:Result Comment: METHOD TRACEABLE TO IDMS STANDARDPerformed By: #### ILEANA EID, , 2776-02 ####[facility] ([id number])[address], [place] [address]qWSC (CKD-EPI) NON-RACE DEPENDENT>90Normal>59Pro[facility] HospitalComment on above:Result Comment: Reported eGFR is based on theCKD-EPI 2020 equation that doesnot use a race coefficient.Performed By: #### ILEANA EID, , 2776-02 ####[facility] ([id number])[address], [address] [address] Glucose [Mass/Vol]134 mg/dSLzez44-46AojWztmcj [facility] HospitalComment on above: Performed By: #### ILEANA EID, , 2776-02 ####[facility] ([id number])[address] [address], [place] [address]Kjuhmzspy [Moles/Vol]3.6 mmol/LNormal3.5-5.0ProMedica [facility] HospitalComment on above:Performed By: #### ILEANA EID, , 2776-02 ####[facility] ([id number])[address] [address], [place] [address]Sneclo [Moles/Vol]135 mmol/KPieqkn438-115 [facility] HospitalComment on above:Performed By: #### ILEANA EID, , 2776-02 ####[facility] ([id number])[address] [address] [place] [address]Pbmf nitrogen [Mass/Vol]7 mg/dLNormal5-23Pro[facility] HospitalComment on above:Performed By: #### ILEANA EID, , 2776-02 ####[facility] ([id number])[address], [address] [place] [address]BYB AND AUTO DIFFon 18-60-7353Jflr form neutrophils/100 WBC (Bld)2.0 % NormalProMedica Boggs HospitalComment on above:Performed By: #### CBCA, 54551- 7, PINR, 04168-0 ####[facility] ([id number])[address] [address], [place] [address]Tceimeeunfq distribution width (RBC) [Ratio]16.1 %High 11.5-15.0ProOur [facility] Of Mercy Hospital HospitalComment on above:Performed By: #### CBCA, 28410-8, PINR, 02538-2 ####[facility] ([id number])[address] [facility] [address] [place] [address]Tanvxhwzjd (Bld) [Volume fraction]25.1 %Low 35-47ProOur [facility] Of Mercy Hospital HospitalComment on above:Performed By: #### CBCA, 23816-4, PINR, 42329-5 ####[facility] ([id number])[address] [address] [place] [address]Flscwchano (Bld) [Mass/Vol]8.2 g/dLLow11.7-15.5ProMedLakeHealth [facility] HospitalComment on above:Performed By: #### CBCA, 28654-2, PINR, 06406-0 ####[facility] ([id number])[address] [address] [place] [address]Xrpsopgvyef (Bld) [#/Vol]1.4 10*3/uLNormal1.0-3.5PSelect [facility] Comment on above:Performed By: #### CBCA, 81989-3, PINR, 63848-0 ####[facility] ([id number])[address] [address] [place] [address] Lymphocytes/100 WBC (Bld)9.0 %NormalProOur Lady Of Mercy Hospital HospitalComment on above: Performed By: #### CBCA, 44514-3, PINR, 10769-0 ####[facility] ([id number])[address] [address] [place] [address]OVF (RBC) [Entitic mass] 29.5 atXochbo79-08VylLnpkzs [facility] HospitalComment on above:Performed By: #### CBCMagen, 32213-2, PINR, 02199-1 ####[facility] ([id number])[address], [address] [place] [address]QOKB (RBC) [Mass/Vol]32.5 g/pFTqmppq90-53 [facility] HospitalComment on above:Performed By: #### CBCMagen, 46511-6, PINR, 66542-4 ####[facility] ([id number])[address], [address] [place] [address]VQA (RBC) [Entitic vol]91 gOMmitln24-066KemYchwta [facility] HospitalComment on above:Performed By: #### CBCMagen, 13592-2, PINR, 54437-1 ####[facility] ([id number])[address] [address] [place] [address]Xntluzgti (Bld) [#/Vol]0.6 10*3/uLNormal0-0.9ProOur [facility] Hospital Comment on above:Performed By: #### CBCMagen, 54511-6, PINR, 55608-4 ####[facility] ([id number])[address] [address] Monocytes/100 WBC (Bld)4.0 %NormalProWadsworth-Rittman Hospitalca [facility]out HospitalComment on above: Performed By: #### CBCA, 22414-8, PINR, 93356-8 ####[facility] ([id number])[address] [address]Jvubzcaradq (Bld) [#/Vol] 13.3 10*3/uLHigh1.5-6.6ProWadsworth-Rittman Hospitalca [facility]out HospitalComment on above:Performed By: #### CBCMagen, 70765-9, PINR, 99331-5 ####[facility] ([id number])[address], [address] [place] [address]FCRHFTYVA RBC1.0 /100 WBC Normal0.0-1.0ProWadsworth-Rittman Hospitalca [facility]out HospitalComment on above:Performed By: #### CBCMagen, 60968-7, PINR, 41439-5 ####[facility] ([id number])[address], [address] [place] [address]DVPSGJGPX0+AbnormalNONEProMedica Stout HospitalComment on above:Performed By: #### CBCMagen, 82814-0, PINR, 54751-5 ####[facility] ([id number])[address], [address] [place] [address]Ejykcjdf mean volume (Bld) [Entitic vol]8.7 fLNormal7-12ProMedica [facility] HospitalComment on above:Performed By: #### CBCMagen, 96174-6, PINR, 03587-4 ####[facility] ([id number])[address], [address] [place] [address]39[address]Wexambjzy (Bld) [#/Vol]166 10*3/cSNbmahw823-986TmtQextcx [facility] Comment on above:Performed By: #### CBCMagen, 85951-7, PINR, 91638-4 ####[facility] ([id number])[address], [address] [place] [address]MPY COUNT2.77 X10E12/LLow3.80-5.20ProWadsworth-Rittman Hospitalca [facility]out HospitalComment on above: Performed By: #### CBCA, 85437-1, PINR, 82879-6 ####[facility] ([id number])[address], [address] [place] [address]JDN URWPUSYFHM58.0 %Normal [facility] HospitalComment on above:Performed By: #### CBCA, 64642-0, PINR, 12883-9 ####[facility] ([id number])[address], [address], [place] [address]FSMDMNPAXWQ5+AbnormalNONEProMedLakeHealth [facility] HospitalComment on above:Performed By: #### RAGINI, 65636-3, PINR, 94177-9 ####[facility] ([id number])[address], [address], [place] [address]CUL (Bld) [#/Vol]15.3 10*3/uLHigh4.0-11.0ProWadsworth-Rittman Hospitalca [facility] HospitalComment on above: Performed By: #### RAGINI, 49448-3, PINR, 44109-4 ####[facility] ([id number])[address], [address] [place] [address]SUBXVXAA BASOPHIL0.0 X10E9/LNormal0.0-0.2Pro[facility] HospitalComment on above:Performed By: #### CBCMagen, BMP, , 1 ####[facility] ([id number])[address], [address] [place] [address]CHDIHEGN GNJPHLHLJQ97.0 X10E9/LHigh1.5-6.6 [facility] HospitalComment on above:Performed By: #### CBCMagen, BMP, , 2776-02 ####[facility] ([id number])[address], [address], [place] [address]Acwetxxwv/100 WBC (Bld)0.1 %NormalProOur Lady Of [facility] Hospital Hospital Comment on above:Performed By: #### CBCA, BMP, , 2776-02 ####[facility] ([id number])[address], [address] [address] Eosinophils (Bld) [#/Vol]0.0 10*3/uLNormal0.0-0.4[facility] Comment on above:Performed By: #### CBCMagen, ILEANA, , 2776-02 ####[facility] ([id number])[address], [address] [place] [address] Eosinophils/100 WBC (Bld)0.0 %NormalProOur Lady Of Mercy Hospital HospitalComment on above: Performed By: #### RAGINI, ILEANA, , 2776-02 ####[facility] ([id number])[address], [address] [place] [address]37[address]Gmnkqiumcuf distribution width (RBC) [Ratio]17.6 %High11.5-15.0ProOur [facility] Of Mercy Hospital HospitalComment on above: Performed By: #### RAGINI, ILEANA, , 2776-02 ####[facility] ([id number])[address], [address] [place] [address]Bacsdmedtz (Bld) [Volume fraction]22.4 %Mud27-20MmdAmnqnt [place] HospitalComment on above:Performed By: #### ILEANA EID, , 2776-02 ####[facility] ([id number])[address] [address] [place] [address]Dbbycdkbdo (Bld) [Mass/Vol] 7.2 g/dLLow11.7-15.5PSelect [facility] HospitalComment on above:Performed By: #### CBCMagen, ILEANA, , 2776-02 ####[facility] ([id number])[address] [address] [place] [address] 63390Cvitghktfby (Bld) [#/Vol]1.0 10*3/uLNormal 1.0-3.5PSelect [facility] [place] HospitalComment on above:Performed By: #### CBCMagen, ILEANA, , 2776-02 ####[facility] ([id number])[address], [address] [place] [address] 13650Mxicfbbmksi/100 WBC (Bld)7.9 %NormalProMedica Boggs HospitalComment on above:Performed By: #### ILEANA EID, , 2776-02 ####[facility] ([id number])[address], [address] [place] [address] 64732MUM (RBC) [Entitic mass]28.9 fyEvfmxm41-39BidUkuhmz [facility] HospitalComment on above:Performed By: #### CBCMagen, ILEANA, , 2776-02 ####[facility] ([id number])[address], [address] [place] [address] 78556LUYY (RBC) [Mass/Vol]32.1 g/cYChbzkl19-65EosJufvjh [facility] HospitalComment on above: Performed By: #### CBCMagen, ILEANA, , 2776-02 ####[facility] ([id number])[address], [address] [place] [address] 83512KCU (RBC) [Entitic vol]90 zWCjvjko00-107EkdErnalp [facility] HospitalComment on above:Performed By: #### RAGINI, ILEANA, , 2776-02 ####[facility] ([id number])[address], [address] [place] [address] 17044Imjsivqwq (Bld) [#/Vol]0.4 10*3/uLNormal0-0.9 [facility]gs HospitalComment on above:Performed By: #### CBCMagen, BMP, , 2776-02 ####[facility] ([id number])[address] 22819Dpgqvjqke/100 WBC (Bld)3.5 %NormalProMedica Boggs Hospital Comment on above:Performed By: #### CBCA, BMP, , 2776-02 ####[facility] ([id number])[address], [address] [place] [address] 02504 Neutrophils/100 WBC (Bld)88.5 %NormalProMedica Boggs HospitalComment on above: Performed By: #### CBCMagen, BMP, , 2776-02 ####[facility] ([id number])[address], [address] [place] [address] 36610Xdhsekwv mean volume (Bld) [Entitic vol]9.1 fLNormal7-12ProMedica Boggs HospitalComment on above:Performed By: #### RAGINI, ILEANA, , 2776-02 ####[facility] ([id number])[address], [address] [place] [address] 13657Fbhfjqqug (Bld) [#/Vol]195 10*3/jXKpmamz955-511LjqUixihq [facility] HospitalComment on above:Performed By: #### RAGINI, ILEANA, , 2776-02 ####[facility] ([id number])[address], [address] [place] [address] 69207ATN COUNT2.49 X10E12/LLow3.80-5.20Pro[facility]ica Boggs HospitalComment on above:Performed By: #### RAGINI, ILEANA, , 2776-02 ####[facility] ([id number])[address], [address] [place] [address] 53542NFW (Bld) [#/Vol]12.5 10*3/uLHigh4.0-11.0ProMedica Boggs HospitalComment on above:Performed By: #### MARYA, BMP, , 2776-02 ####[facility] ([id number])[address], [address] [place] [address] 86630USDN ARTERIAL GASon 87-14-8321RJDEZ'S TESTNormalProMedica Boggs HospitalComment on above: Performed By: #### CRDA ####[facility] ([id number])[address] [place], [place] [address]Uuuzwqkgh By: #### CRDV ####[facility] ([id number])[address] [facility] [facility] [place] [address]WIKA,DEFICIT8.0 MMOL/LHigh0.0-2.0 [facility] Boggs HospitalComment on above:Performed By: #### CRDA ####[facility] ([address] [place] [address] [facility] [place] [address]Nngsphwgj By: #### CRDV ####[facility] ([address] [place] [address] [facility] [place], [place] [address]KQG3 (Bld) [Moles/Vol]19.2 mmol/KXnq73-84EsmAraoas [facility] HospitalComment on above:Performed By: #### CRDA ####[facility] ([address] [place] [address] [facility] [place] [address]YTJW. O2 CONC.21 %NormalProMedica [facility] Comment on above:Performed By: #### CRDA ####[facility] ([address] [place] [address] [place], [place] [address]Vddbfrtzx By: #### CRDV ####[facility] ([address] [place] [address] [place] [facility] [place], [place] [address]Dnygun (Bld) [Partial pressure]18 mm[Hg]Hsdqzk84-52GqhEmobzu Stout HospitalComment on above: Performed By: #### CRDA ####[facility] ([address] [place] [address] . [facility] CENTERJOHANNA[place], [place] [address]Juyhyd saturation in Blood21.0 %Normal7.1-39.5ProMedica Stout HospitalComment on above:Performed By: #### CRDA ####[facility] ([id number])[address] [facility], [place] [address]RMHWZH SOURCEVentNormal ProMedica Boggs HospitalComment on above:Performed By: #### CRDA ####[facility] ([id number])[address] [place] [place], [place] [address]VNV674.2 MMHG Svfavg16.8-57.6ProMedica Boggs HospitalComment on above:Performed By: #### CRDA ####[facility] ([id number])[address] [place], [place] [address]fX (Bld)7.245 [pH]Normal7.24-7.30ProMedica Boggs HospitalComment on above: Performed By: #### CRDA ####[facility] ([id number])[address] [place], [place] [address]WLHHMS SITEArtCordNormalProMedica Boggs HospitalComment on above:Performed By: #### CRDA ####[facility] ([id number])2[address] [facility] [place], [place] [address]RRPWNJ TYPEUMBILICALCORDNormalProMedica Boggs HospitalComment on above:Performed By: #### CRDA ####[facility] ([id number])[address] [place], [place] [address]Xxtynehsd By: #### CRDV ####[facility] ([id number])[address] [place], [place] [address]IJEK VENOUS GAS on 60-13-2540MIX4 (Bld) [Moles/Vol]17.6 mmol/LLow20.0-24.0ProMedica Boggs HospitalComment on above:Performed By: #### CRDV ####[facility] ([id number])[address] [place], [place] [address]Eavlbr (Bld) [Partial pressure]46 mm[Hg]Ohiy36-23StiVodvao Boggs HospitalComment on above:Performed By: #### CRDV ####[facility] ([id number])[address]141 [place] [address] Oxygen saturation in Blood77.0 %High32.5-66.3PFort Hamilton HospitalComment on above:Performed By: #### CRDV ####[facility] ([id number])[address] [facility], [place] [address]KPDMUA SOURCERoomAirNoalProMedica Memorial Hospital Comment on above:Performed By: #### CRDV ####[facility] ([id number])[address]141 [place], [place] [address]DHF969.7 PLOQJmafvg06.6-43.8 [facility]us Va Medical CenterComment on above:Performed By: #### CRDV ####[facility] ([id number])[address]141 [place], [place] [address]kJ (Bld)7.289 [pH]Normal7.25-7.37ProOhiohealth Southeastern Medical CenterComment on above:Performed By: #### CRDV ####[facility] ([id number])[address] [place], [place] [address]EFSROF SITEVenCordMercy Health St. Anne HospitalComment on above:Performed By: #### CRDV ####[facility] ([id number])2[address] [facility] [address]Ruunxag.ionized (Bld) [Mass/Vol]on 17-87-0073JDMXTUF CALCIUM 3.7 mg/dLLow4.5-5.3PFort Hamilton HospitalComment on above:Performed By: #### 91383-3 ####[facility] ([id number])2130 [facility], [facility] [address], [place] [address]LCLMVHI CALCIUM4.0 mg/dLLow4.5-5.3PFort [facility] Comment on above:Performed By: #### 88046-9, 11467-4 ####[facility] ([id number])[address], [address] [place] [address]Ciqervwdtn Coagulation.derived (PPP) [Mass/Vol]on 88-39-9756JKDKWAMTKH366 mg/dLNormal 190-480ProOhiohealth Southeastern Medical CenterComment on above:Performed By: #### CBCA, 53459- 7, PINR, 20810-5 ####[facility] ([id number])[address], [address] [place] [address]Thjnndf Glucometer (BldC) [Mass/Vol]on 06-03-2024 Glucose [Mass/Vol]175 mg/cAPoaf36-97JpnOpwoum [place] HospitalGlucose [Mass/Vol] 153 mg/tZOyqy11-39BxlFomrgu [place] HospitalGlucose [Mass/Vol]132 mg/jWOodk77-01 ProMedica Stout HospitalLactate (P qing) [Moles/Vol]on 15-83-9538HEOWPTJ W/REFLEX0.7 mmol/LNormal0.4-2.0ProOhiohealth Southeastern Medical CenterComment on above:Result Comment: Result did not trigger repeat Lactate,re-order if needed.Performed By: #### 09384-4, ILEANA, 2776-02, ####[facility] ([id number])[address], [address] [place] [address] 13081SSGPVAEICkp 06-03-2024 Magnesium [Mass/Vol]5.2 mg/dLCritically high1.8-2.6[facility] Comment on above:Performed By: #### 53356-9, ILEANA, 2776-02, ####[facility] ([id number])[address], [address] [place] [address] Magnesium [Mass/Vol]5.0 mg/dLHigh1.8-2.6ProOhiohealth Southeastern Medical CenterComment on above:Performed By: #### CBCA, BMP, , 2776-02 ####[facility] ([id number])[address], [address], [place] [address]Uuaoifrtj Ionized ISE (Bld) [Moles/Vol]on 89-90-0965IVDOIKA MAGNESIUM>1.44Rvjp5.45-0.74ProOur Lady Of Mercy Hospital HospitalComment on above:Performed By: #### 83201-3, 52751-6 ####[facility] ([id number])[address], [address] [address] PHOSPHORUSon 23-30-5797Lqpvhuidx [Mass/Vol]2.8 mg/dLNormal2.4-4.9ProOur Lady Of Mercy Hospital HospitalComment on above:Performed By: #### 07938-1, BMP, 2776-02, ####[facility] ([id number])[address], [address] [facility] [address]Uukdhxgwy [Mass/Vol]2.0 mg/dLLow2.4-4.9ProOur [facility] Of Mercy Hospital HospitalComment on above:Performed By: #### CBCA, BMP, , 2776-02 ####[facility] ([id number])[address], [address], [place] [address]GKOTKVA AND INR on 61-84-1291LZJ Coag (PPP) [Relative time]1.0 {INR}Normal0.9-1.2PSelect Medical [facility]Health Rehabilitation Hospital [facility] Dublin HospitalComment on above:Performed By: #### RAGINI, 96845-9, PINR, 77502-1 ####[facility] ([id number])[address], [address], [place] [address]HZ Coag (PPP) [Time]10.9 sNormal9.8-13.2PSelect Medical [facility] HospitalComment on above:Performed By: #### RAGINI, 45523-8, PINR, 90355-7 ####[facility] ([id number])[address], [address], [place] [address]Surgical Pathologyon 96-72-2084Xajbxlcc PathologyNormalProMedica Togus Va Medical CenterComment on above:Result Comment: [facility] [address] [place] [address] Surgical Pathology ConsultationPatient Name:JUAN LUIS STOREY:1990 (Age: 33)Gender:FTaken:06/03/2024Reported:06/09/2024Physician(s):Sesar Kay MD ([phone])Copy To: Rec. #:[id number]: #[id number] Pathologic DiagnosisPlacenta; removal: 432 g mature third- trimester placenta with subchorionic fibrin deposition and intervillous fibrin thrombi (x 3). Unremarkable membranes and unremarkable 3 vessels umbilical cord. Report Electronically Signed [place]/06/09/2024Jose Quinonez MDInterpretation performed at [facility], [address] [place] [address], License number: [id number].Clinical HistoryPreeclampsia.Gross DescriptionReceived in formalin labeled mateo STOREY : Sin gleMEMBRANES:Placenta Sac Rupture (cm from margin): Approximately 10 cmColor: Blue-grayOther Characteristics: UnremarkableInsertion Site: MarginalCORD:Appearance: UnremarkableSite of Insertion: EccentricLength & Diameter (cm): 25 x 0.8 cmTrue Knots: NoNumber of vessels: 3GENERAL:Trimmed Weight (grams): 432 gComplete: YesSize 1 x Size 2 x Size 3 (cm): 17 x 15 x 1.8 cmAccessory Lobe(s): NoPLACENTAL DISK:Color of Surface: Iyor-txctOft-ltdkhvla Cyst: NoAmnion Nodosum: NoSubchorionic Fibrin: Yes, up to 0.2 cm in thickness, less than 5%Appearance of Cut Surface: There are at least 3 lincoln to red-brown laminated areas, 0.6 cm to 1.2 cm in greatest dimensionMaternal floor: Intact and unremarkableRetroplacental hematoma: NoCassettes:A Rolled membrane, two sections of cordB-D Representativesections of placentaE Additional membrane roll(5,ss,K99-63557) /06/04/2024NSKSpecimen(s) Received PlacentaFee Codes(s):1; 51008lACF Coag (PPP) [Time]on 28-61-5495nMSV Coag (Bld) [Time]30 yCwzyug48-89WvcTglodr Boggs HospitalComment on above:Performed By: #### CBCA, 32449-1, PINR, 80107-0 ####[facility] ([id number])[address] [facility], [address] [place] [address]QJRKOFAN BLOOD GASon 23-65-5738GDAPS'S TESTNormalProMedica Memorial Hospital Comment on above:Performed By: #### ABG ####[facility] ([id number])2141 [place], [place] [address]UGDJ,YXBOICW50.0 MMOL/LHigh0.0-2.0 [facility] Stout HospitalComment on above:Performed By: #### ABG ####[facility] ([id number])2141 [place], [place] [address]Bsfm iivdsaqsycb97.6 [degF]Bxhmuu26.0ProWadsworth-Rittman Hospitalca Stout HospitalComment on above: Performed By: #### ABG ####[facility] ([id number])[address]141 [place], [place] [address]DQJ0 (Bld) [Moles/Vol]13.4 mmol/CEan88-40UbzRcyxdn Stout HospitalComment on above:Performed By: #### ABG ####[facility] ([id number])[address]141 [place], [place] [address]SCAL. O2 CONC.40 %NormalProMedica Stout HospitalComment on above:Performed By: #### ABG ####[facility] ([id number])2141 [facility] [place] [address]Imwoig (Bld) [Partial pressure]68 mm[Hg]Lac83-866XvgEmojji Boggs HospitalComment on above:Performed By: #### ABG ####[facility] ([id number])[address] [place] [place], [place] [address]Aulsyd saturation in Blood93.0 %Normal>90[facility] Comment on above:Performed By: #### ABG ####[facility] ([address] [place] [address])2141 [facility]ITALJ[facility]AT[facility] [address]TYMMPU SOURCENCNormalProMedica Stout HospitalComment on above:Performed By: #### ABG ####[facility] ([address] [place] [address])2141 [address] [facility], [place] [address]XJS236.3 KYAEApg48-20 [facility] Boggs HospitalComment on above:Performed By: #### ABG ####[facility] ([address] [place] [address])2141 [facility]ITAL[place], [place] [address]wR (Bld)7.369 [pH]Normal7.350-7.450ProMedica Stout HospitalComment on above:Performed By: #### ABG ####[facility] ([address] [place] [address])2141 [address] [facility], [place] [address]GNKVNZ SITEALineNormalProMedica Boggs HospitalComment on above:Performed By: #### ABG ####[facility] ([address] [place] [address])[address] [facility]OSPITALJf [place]W[place] [facility], [place] [address]YRCXQB TYPEARTERIALNormalProMedica Boggs HospitalComment on above: Performed By: #### ABG ####[facility] ([id number])[address] [facility] CLARE'S HOSPITALJf [place], [place] [address]EAWBB METABOLIC PANLon 23-03-3318Mxuii gap [Moles/Vol]14 mmol/LNormal5-15ProMedica Boggs HospitalComment on above:Performed By: #### ILEANA EID, , 2776-02, LIVR ####[facility] ([id number])[address] [address] [place] [address]Ytsqvkb [Mass/Vol]7.9 mg/dL Low8.5-10.5PFort Hamilton HospitalComment on above:Performed By: #### RAGINI, ILEANA, 60075-5, 2776-02, LIVR ####[facility] ([id number])[address], [address] [place] [address]Culnnubx [Moles/Vol]113 mmol/IZblb55-159 [facility] Memorial HospitalComment on above:Performed By: #### RAGINI, ILEANA, , 2776-02, LIVR ####[facility] ([id number])[address] [address]KF6 [Moles/Vol]14 mmol/XIdm30-60BbqGsbhru [facility] Comment on above:Performed By: #### ILEANA EID, , 2776-02, LIVR ####[facility] ([id number])[address] [address] Creatinine [Mass/Vol]0.50 mg/dLNormal0.40-1.00ProOhiohealth Southeastern Medical CenterComment on above:Result Comment: METHOD TRACEABLE TO IDAL STANDARDPerformed By: #### RAGINI, ILEANA, , 2776-02, LIVR ####[facility] ([id number])[address] [address]kOTP (CKD-EPI) NON-RACE DEPENDENT>90Normal>59ProOhiohealth Southeastern Medical CenterComment on above:Result Comment: Reported eGFR is based on theCKD-EPI 2020 equation that doesnot use a race coefficient.Performed By: #### RAGINI, ILEANA, 16819-2, 2776-02, LIVR ####[facility] ([id number])[address], [address], [place] [address] Glucose [Mass/Vol]132 mg/wDIwmy98-61HrrAdphqlOhiohealth Southeastern Medical CenterComment on above: Performed By: #### CBCMagen, BMP, , 2776-02, LIVR ####[facility] ([id number])[address], [address] [place] [address]Pcatgmcqb [Moles/Vol] 4.0 mmol/LNormal3.5-5.0ProOur [facility] HospitalComment on above:Performed By: #### RAGINI BMP, , 2776-02, LIVR ####[facility] ([id number])[address], [address], [place] [address]Uwazrp [Moles/Vol]141 mmol/YFmkboc174-191PwmSesoom [place] HospitalComment on above:Performed By: #### CBCMagen, BMP, , 2776-02, LIVR ####[facility] ([id number])[address], [address] [place] [address]Vmkw nitrogen [Mass/Vol]10 mg/dLNormal5-23ProOur [facility] HospitalComment on above:Performed By: #### CBCMagen, BMP, , 2776-02, LIVR ####[facility] ([id number])[address], [address] [place] [address]HJW AND AUTO DIFFon 44-71-7654JPIMZKYW BASOPHIL0.0 X10E9/LNormal0.0-0.2PFort [facility] Comment on above:Performed By: #### CBCA, PINR, 37914-3, 30849-3, CMP, 2532-0, 25038-2, 19715-2 ####[facility] ([id number])[address], [address] [place] [address]PWCVTEFM YRDHSMAUMA56.6 X10E9/LHigh1.5-6.6ProOur [facility] Of Mercy Hospital HospitalComment on above:Performed By: #### CBCA, PINR, 03066-9, 54793-5, CMP, 2532-0, 32829-8, 39755-0 ####[facility] ([id number])[address], [address], [place] [address]Ekdfcncbp/100 WBC (Bld)0.3 %NormalProOur Lady Of Mercy Hospital HospitalComment on above:Performed By: #### CBCA, PINR, 80999-8, 55842- 7, CMP, 2532-0, 98943-9, 66675-1 ####[facility] ([id number])[address], [address] [place] [address]Xfkbuixwddf (Bld) [#/Vol] 0.0 10*3/uLNormal0.0-0.4ProOur [facility] Of [facility] Hospital HospitalComment on above:Performed By: #### CBCA, PINR, 59794-1, 38950-2, CMP, 2532-0, 95359-4, 29956-3 ####[facility] ([id number])[address], [address] [place] [address] Eosinophils/100 WBC (Bld)0.0 %NormalProOur Lady Of Mercy Hospital HospitalComment on above: Performed By: #### CBCA, PINR, 79401-6, 60267-9, CMP, 2532-0, 25167-0, 36478-5 ####[facility] ([id number])[address], [address], [place] [address]Mwgaaetsgan distribution width (RBC) [Ratio]17.4 %High11.5-15.0ProOur Lady Of Mercy Hospital HospitalComment on above:Performed By: #### CBCA, PINR, 17083-0, 57060-3, CMP, 2532-0, 99784-2, 25556-8 ####[facility] ([id number])[address], [address], [place] [address]Mgcbzicjbw (Bld) [Volume fraction]23.1 %Low 35-47ProOur Lady Of Mercy Hospital HospitalComment on above:Performed By: #### CBCA, PINR, 89320-1, 77371-4, CMP, 2532-0, 51250-9, 75395-7 ####[facility] ([id number])[address], [address], [place] [address]Bhisxpvzvy (Bld) [Mass/Vol] 7.4 g/dLLow11.7-15.5PSelect Medical [facility] HospitalComment on above:Performed By: #### CBCA, PINR, 34214-3, 82545-4, CMP, 2532-0, 03642-0, 50158-1 ####[facility] ([id number])[address], [address], [place] [address]Neitnoqdreo (Bld) [#/Vol]0.8 10*3/uLLow1.0-3.5PSelect Medical [facility] HospitalComment on above: Performed By: #### CBCA, PINR, 93646-6, 49353-5, CMP, 2532-0, 37963-0, 93080-2 ####[facility] ([id number])[address], [address], [place] [address]Gfxgonxuokn/100 WBC (Bld)5.4 %NormalProOur Lady Of Mercy Hospital HospitalComment on above:Performed By: #### CBCA, PINR, 30556-5, 07480-9, CMP, 2532-0, 35837-3, 74091-0 ####[facility] ([id number])[address], [address], [place] [address]TMM (RBC) [Entitic mass]28.7 oaLrtawk61-16TqjMmpetc [place] HospitalComment on above:Performed By: #### CBCA, PINR, 65501-2, 01160-2, CMP, 2532-0, 09074-7, 51375-8 ####[facility] ([id number])[address], [address] [place] [address]NPIV (RBC) [Mass/Vol]32.0 g/hPYgakau94-30 [facility] HospitalComment on above:Performed By: #### CBCA, PINR, 91122- 9, 16244-2, CMP, 2532-0, 48014-6, 60631-1 ####[facility] ([id number])[address], [address] [place] [address] 24[address]TRI (RBC) [Entitic vol]90 bIOwzndl24-940HafQxfrtu Boggs HospitalComment on above:Performed By: #### CBCA, PINR, 83595-3, 66677-3, CMP, 2532-0, 05450-2, 63124-5 ####[facility] ([id number])[address], [address] [place] [address] 144[address]Jsuatdbpd (Bld) [#/Vol]0.5 10*3/uLNormal0-0.9ProMedica [facility] HospitalComment on above:Performed By: #### CBCA, PINR, 26515-4, 22082-1, CMP, 2532-0, 19103-1, 35962-0 ####[facility] ([id number])[address], [address] [place] [address] 269[address] Monocytes/100 WBC (Bld)3.6 %NormalProMedica Boggs HospitalComment on above: Performed By: #### CBCA, PINR, 82881-4, 70313-0, CMP, 2532-0, 15237-2, 89502-4 ####[facility] ([id number])[address], [address] [place] [address] 26062Ccmjelzkfct/100 WBC (Bld)90.7 %NormalProMedica Boggs HospitalComment on above:Performed By: #### CBCA, PINR, 32824-7, 39873-1, CMP, 2532-0, 58563-2, 96053-0 ####[facility] ([id number])[address], [address], [place] [address]Xuqwkdyd mean volume (Bld) [Entitic vol]9.2 fLNormal7-12 [facility] HospitalComment on above:Performed By: #### CBCA, PINR, 37625- 9, 71172-9, CMP, 2532-0, 80017-0, 30080-5 ####[facility] ([id number])[address], [address], [place] [address]Jmnrdnkbs (Bld) [#/Vol]190 10*3/tGFercem732-163TduNredfs Boggs HospitalComment on above:Performed By: #### CBCA, PINR, 10400-8, 87918-8, CMP, 2532-0, 59630-1, 50191-6 ####[facility] ([id number])[address], [address] [place] [address]69[address]DCV COUNT2.57 X10E12/LLow3.80-5.20Pro[facility] HospitalComment on above:Performed By: #### CBCA, PINR, 42597-4, 21054-1, CMP, 2532-0, 25689-9, 18276-1 ####[facility] ([id number])[address], [address], [place] [address]MWR (Bld) [#/Vol]15.0 10*3/uLHigh4.0-11.0ProMedica [facility]gs HospitalComment on above: Performed By: #### CBCA, PINR, 88907-0, 69609-6, CMP, 2532-0, 40328-0, 25823-2 ####[facility] ([id number])[address], [address], [place] [address]ZWOTDNIV BASOPHIL0.0 X10E9/LNormal0.0-0.2ProMedica [facility]gs HospitalComment on above:Performed By: #### CBCILEANA Us, , 2776-02, LIVR ####[facility] ([id number])[address], [address], [place] [address]NNLIJCQV FQYAIDUEVJ93.5 X10E9/LHigh1.5-6.6Pro[facility]ica [facility]gs HospitalComment on above: Performed By: #### CBCILEANA Us, , 2776-02, LIVR ####[facility] ([id number])[address], [address] [place] [address] 467[address]Pcvyrzrbi/100 WBC (Bld)0.1 %NormalProMedica Stout HospitalComment on above:Performed By: #### CBCILEANA Us, , 2776-02, LIVR ####[facility] ([id number])[address], [address] [place] [address]Jxaonnapwho (Bld) [#/Vol] 0.0 10*3/uLNormal0.0-0.4ProWadsworth-Rittman Hospitalca Boggs HospitalComment on above:Performed By: #### CBCILEANA Us, , 2776-02, LIVR ####[facility] ([id number])[address], [address] [place] [address] 509[address]Sqveahninjt/100 WBC (Bld) 0.0 %NormalProMedica Boggs HospitalComment on above:Performed By: #### CBCMagen, ILEANA, , 2776-02, LIVR ####[facility] ([id number])[address], [address] [place] [address] 82926Vpgwdfuptbo distribution width (RBC) [Ratio] 17.4 %High11.5-15.0ProMedica [facility]gs HospitalComment on above:Performed By: #### CBCA, BMP, , 2776-02, LIVR ####[facility] ([id number])[address], [address] [place], [place] [address]Kbsblkuxkq (Bld) [Volume fraction]21.8 %Kzw52-85QsdKbxshi Stout HospitalComment on above:Performed By: #### CBCA, BMP, , 2776-02, LIVR ####[facility] ([id number])[address], [address] [place], [place] [address]Zeujrqobkz (Bld) [Mass/Vol] 7.1 g/dLLow11.7-15.5ProMedica Stout HospitalComment on above:Performed By: #### CBCA, BMP, , 2776-02, LIVR ####[facility] ([id number])[address], [address] [place], [place] [address]Mwjcdylsect (Bld) [#/Vol] 0.6 10*3/uLLow1.0-3.5ProMedica Stout HospitalComment on above:Performed By: #### CBCA, BMP, , 2776-02, LIVR ####[facility] ([id number])[address], [address] [place], [place] [address]Yfhsylitwwi/100 WBC (Bld) 4.4 %NormalProMedica Stout HospitalComment on above:Performed By: #### CBCA, BMP, , 2776-02, LIVR ####[facility] ([id number])[address], [address] [place], [place] [address]QES (RBC) [Entitic mass]29.0 iwNrmlcf89-83 ProMedica Boggs HospitalComment on above:Performed By: #### CBCA, BMP, , 2776-02, LIVR ####[facility] ([id number])[address], [address] [place] [address] 679[address]LGOW (RBC) [Mass/Vol]32.4 g/oHTfyqna38-11ShxWjrgju Boggs HospitalComment on above:Performed By: #### CBCA, BMP, , 2776-02, LIVR ####[facility] ([id number])[address], [address] [place] [address]PAR (RBC) [Entitic vol]90 zANnawxr06-078MwrEvbhxb Boggs HospitalComment on above:Performed By: #### CBCA, BMP, , 2776-02, LIVR ####[facility] ([id number])[address], [address] [place] [address] 88[address]Hiyuoshew (Bld) [#/Vol]0.5 10*3/uLNormal0-0.9ProMedica Boggs HospitalComment on above: Performed By: #### CBCA, BMP, , 2776-02, LIVR ####[facility] ([id number])[address], [address] [place] [address] 54954Fdpznzvlq/100 WBC (Bld)3.4 %NormalProMedica Boggs HospitalComment on above:Performed By: #### CBCA, BMP, , 2776-02, LIVR ####[facility] ([id number])[address], [address] [place] [address] 32951Uzvplnkqtkj/100 WBC (Bld) 92.1 %NormalProMedica Boggs HospitalComment on above:Performed By: #### CBCA, BMP, , 2776-02, LIVR ####[facility] ([id number])[address], [address] [place] [address]48[address]Puezdvwl mean volume (Bld) [Entitic vol]9.8 fLNormal7-12ProMedica Boggs HospitalComment on above:Performed By: #### CBCA, BMP, , 2776-02, LIVR ####[facility] ([id number])[address], [address] [place] [address] 64[address]Evpswpawd (Bld) [#/Vol]186 10*3/uLNormal 150-450ProMedica Boggs HospitalComment on above:Performed By: #### CBCMagen, BMP, , 2776-02, LIVR ####[facility] ([id number])[address], [address] [place] [address] 88081ARS COUNT2.43 X10E12/LLow3.80-5.20ProMedica Boggs HospitalComment on above:Performed By: #### CBCMagen, BMP, , 2776-02, LIVR ####[facility] ([id number])[address], [address] [place] [address] 050[address]OXO (Bld) [#/Vol]14.6 10*3/uLHigh4.0-11.0ProMedica Boggs HospitalComment on above:Performed By: #### CBCMagen, BMP, , 2776-02, LIVR ####[facility] ([id number])[address] [address] [place] [address]JIUSLGVC BLOOD COUNTon 78-79-1844Rqjmkkktmju distribution width (RBC) [Ratio]17.7 %High11.5-15.0ProMedica Boggs HospitalComment on above:Performed By: #### CBC ####[facility] ([id number])[address] [address] [place] [address] 19881Hysvdegdqy (Bld) [Volume fraction]22.0 %Lvw28-77UmqAbijzs Boggs HospitalComment on above:Performed By: #### CBC ####[facility] LAB ([id number])[address], [address] [place] [address]Quiizyboox (Bld) [Mass/Vol]7.1 g/dLLow11.7-15.5ProMedica Stout HospitalComment on above: Performed By: #### CBC ####[facility] ([id number])[address], [address], [place] [address]KKE (RBC) [Entitic mass]28.6 jsRnryay35-48 [facility] HospitalComment on above:Performed By: #### CBC ####[facility] ([id number])[address], [address] [place], [place] [address]QMXC (RBC) [Mass/Vol]32.2 g/cTKgxrqk32-47LnsWfxajv [place] HospitalComment on above: Performed By: #### CBC ####[facility] ([id number])[address], [address] [place], [place] [address]MCU (RBC) [Entitic vol]89 wOInowli62-373 [facility] HospitalComment on above:Performed By: #### CBC ####[facility] ([id number])[address], [address], [place] [address] Platelet mean volume (Bld) [Entitic vol]9.1 fLNormal7-12PSelect [facility] HospitalComment on above:Performed By: #### CBC ####[facility] ([id number])[address], [address], [place] [address]Bjtxwqqsw (Bld) [#/Vol]184 10*3/sHUrsbky481-957OocRnnymb [place] HospitalComment on above:Performed By: #### CBC ####[facility] ([id number])[address], [address] [place], [place] [address]WII COUNT2.48 X10E12/LLow3.80-5.20Pro[facility] Comment on above:Performed By: #### CBC ####[facility] ([id number])[address], [address] [place] [address]CGM (Bld) [#/Vol]13.1 10*3/uLHigh4.0-11.0ProWadsworth-Rittman Hospitalca [facility]out HospitalComment on above:Performed By: #### CBC ####[facility] ([id number])[address], [address] [place] [address]RZAGUJSELXECU METABOLIC PANELon 26-86-0953Slwowwy [Mass/Vol] 3.2 g/dLNormal3.2-5.3ProMedica Stout HospitalComment on above:Performed By: #### CBCA, PINR, 35679-0, 86363-0, CMP, 2532-0, 33539-0, 92699-9 ####[facility] ([id number])[address], [address] [place] [address] 77494TDH [Catalytic activity/Vol]43 U/NQahldm44-718MmhTfhjnw [place] HospitalComment on above:Performed By: #### CBCA, PINR, 60137-5, 50135-6, CMP, 2532-0, 63187-7, 84667-9 ####[facility] ([id number])[address], [address] [place] [address] 40421DPN [Catalytic activity/Vol]8 U/LNormal0-31Pro[facility] HospitalComment on above:Performed By: #### CBCA, PINR, 89487-9, 49843-7, CMP, 2532-0, 58859-2, 97743-2 ####[facility] ([id number])[address], [address], [place] [address]Hnntr gap [Moles/Vol]13 mmol/LNormal5-15 [facility]ica [facility] HospitalComment on above:Performed By: #### CBCA, PINR, 59315- 9, 36874-7, CMP, 2532-0, 84720-8, 70684-5 ####[facility] ([id number])[address], [address], [place] [address]OYY [Catalytic activity/Vol]17 U/LNormal0-41ProMedica [facility]out HospitalComment on above:Performed By: #### CBCA, PINR, 17341-7, 34446-6, CMP, 2532-0, 72769-5, 59713-7 ####[facility] ([id number])[address], [address], [place] [address] Bilirubin [Mass/Vol]0.4 mg/dLNormal0.3-1.2ProMedLakeHealth [facility] HospitalComment on above:Performed By: #### CBCA, PINR, 42021-1, 09895-3, CMP, 2532-0, 96168-9, 43898-3 ####[facility] ([id number])[address], [address], [place] [address]Xyokfro [Mass/Vol]8.1 mg/dLLow8.5-10.5ProMedLakeHealth [facility] HospitalComment on above:Performed By: #### CBCA, PINR, 13149-8, 31901-5, CMP, 2532-0, 14169-3, 76707-2 ####[facility] ([id number])[address], [address], [place] [address]Tmdpfsmy [Moles/Vol]110 mmol/RHtzd18-588 [facility] HospitalComment on above:Performed By: #### CBCA, PINR, 93265- 9, 66702-3, CMP, 2532-0, 90903-5, 79980-2 ####[facility] ([id number])[address], [address], [place] [address]UI4 [Moles/Vol]15 mmol/LLow 22-32ProMedLakeHealth [facility] HospitalComment on above:Performed By: #### CBCA, PINR, 94533-3, 00824-5, CMP, 2532-0, 83598-1, 54164-9 ####[facility] ([id number])[address] [address] [place], [place] [address]Vmdqiyfwus [Mass/Vol]0.47 mg/dLNormal0.40-1.00ProOhiohealth Southeastern Medical CenterComment on above:Result Comment: METHOD TRACEABLE TO IDMS STANDARDPerformed By: #### CBCA, PINR, 01267-5, 56071- 7, CMP, 2532-0, 99829-6, 26716-1 ####[facility] ([id number])[address] [address] [place] [address] 31532iDWC (CKD-EPI) NON-RACE DEPENDENT>90Normal>59ProOhiohealth Southeastern Medical CenterComment on above:Result Comment: Reported eGFR is based on theCKD-EPI 2020 equation that doesnot use a race coefficient.Performed By: #### CBCA, PINR, 92145-4, 90499-4, CMP, 2532-0, 39484- 7, 95918-0 ####[facility] ([id number])[address] [address] [place], [place] [address]Dutyqcs [Mass/Vol]125 mg/gVSals34-46UqlGemudrOhiohealth Southeastern Medical Center Comment on above:Performed By: #### CBCA, PINR, 95840-4, 95476-0, CMP, 2532-0, 53083-1, 75016-7 ####[facility] ([id number])[address] [address], [place] [address]Wqpxepmrw [Moles/Vol]3.9 mmol/LNormal3.5-5.0ProOhiohealth Southeastern Medical CenterComment on above:Performed By: #### CBCA, PINR, 90884-0, 09766-2, CMP, 2532-0, 02539-1, 63517-7 ####[facility] ([id number])[address] [address] [place] [address]Fkdoozv [Mass/Vol]5.9 g/dLLow6.0-8.0 [facility] HospitalComment on above:Performed By: #### CBCA, PINR, 40205- 9, 20223-5, CMP, 2532-0, 53124-8, 13829-5 ####[facility] ([id number])[address], [address] [place], [place] [address]Frpetw [Moles/Vol]138 mmol/YQyaufb448-258NzvVqfkmi [place] HospitalComment on above:Performed By: #### CBCA, PINR, 33555-4, 34319-1, CMP, 2532-0, 36580-8, 84266-4 ####[facility] ([id number])[address], [address] [place], [place] [address]Igby nitrogen [Mass/Vol]10 mg/dLNormal5-23ProOur [facility] HospitalComment on above:Performed By: #### CBCA, PINR, 32167-2, 02981-6, CMP, 2532-0, 91328-5, 09417-3 ####[facility] ([id number])[address], [address] [place], [place] [address]JM ABDOMEN AND PELVIS W CONTon 43-99-0701IK ABDOMEN AND PELVIS W CONTNormal ProMsoutheast health medical centera Stout HospitalCT CTA CHESTon 08-56-4495QG CTA CHESTNormalProMedica Stout HospitalCalcium.ionized (Bld) [Mass/Vol]on 22-33-7829EOUYKZU CALCIUM4.7 mg/dLNormal4.5-5.3ProMedica Stout HospitalComment on above:Performed By: #### 86134-0, 37917-5 ####[facility] ([id number])[address], [address] [place], [place] [address]Dcsxnbapfx Coagulation.derived (PPP) [Mass/Vol]on 97-22-1283KUQFHKYZGW576 mg/nJAfofhw207-754IzoJsfxds [place] HospitalComment on above:Performed By: #### CBCA, PINR, 38814-2, 32903-4, CMP, 2532-0, 51598-4, 56224-6 ####[facility] ([id number])[address], [address], [place] [address]Vbdzrvx Glucometer (BldC) [Mass/Vol]on 35-02-4666Emiueqj [Mass/Vol]122 mg/zYNxbx14-26PbtRdbelqProMedica Memorial HospitalGlucose [Mass/Vol]116 mg/dL Pksm92-64NibHwzvrqProMedica Memorial HospitalHGBon 82-51-5228Jsuescuwle (Bld) [Volume fraction]21.9 %Bqz02-21DgeMfsxcbProMedica Memorial HospitalComment on above:Performed By: #### HH ####[facility] ([id number])[address], [address], [place] [address]Gwthbnmwxq (Bld) [Mass/Vol]7.2 g/dLLow11.7-15.5PFort Hamilton HospitalComment on above:Performed By: #### HH ####[facility] ([id number])[address], [address], [place] [address]Uefntiovfxc Nephelometry [Mass/Vol]on 73-35-7613ZSOGCZKLCYB000 mg/fVAnzqby14-640DgpLccojh [place] HospitalComment on above:Performed By: #### CBCA, PINR, 79819-2, 29422-1, CMP, 2532-0, 15783-8, 42294-7 ####[facility] ([id number])[address], [address], [place] [address]MVD [Catalytic activity/Vol]on 06-02-2024 WMQ637 U/HIlnbfk800-109QplShrktx [place] HospitalComment on above:Performed By: #### CBCA, PINR, 78822-0, 14976-1, CMP, 2532-0, 75569-6, 65539-2 ####[facility] ([id number])[address], [address], [place] [address]KATPN PANELon 01-13-4527Aotajqn [Mass/Vol]3.1 g/dLLow3.2-5.3PSelect [facility] Comment on above:Performed By: #### RAGINI, ILEANA, , 2776-02, LIVR ####[facility] ([id number])[address], [address], [place] [address]PTV [Catalytic activity/Vol]44 U/WDboqkx73-102UdkMguekm [facility]out HospitalComment on above:Performed By: #### RAGINI, BMP, , 2776-02, LIVR ####[facility] ([id number])[address], [address], [place] [address]JRP [Catalytic activity/Vol]9 U/LNormal0-31PSelect Medical [facility] HospitalComment on above:Performed By: #### RAGINI, BMP, , 2776-02, LIVR ####[facility] ([id number])[address], [address], [place] [address]UYG [Catalytic activity/Vol]19 U/LNormal0-41ProWadsworth-Rittman Hospitalca [facility] HospitalComment on above:Performed By: #### RAGINI, BMP, , 2776-02, LIVR ####[facility] ([id number])[address], [address], [place] [address]Ngkkyneny [Mass/Vol]0.6 mg/dLNormal0.3-1.2PSelect Medical [facility] HospitalComment on above:Performed By: #### MARYA, BMP, , 2776-02, LIVR ####[facility] ([id number])[address], [address], [place] [address]Jrldooxdy.direct [Mass/Vol] 0.2 mg/dLNormal0.0-0.4Pro[facility]gs HospitalComment on above:Performed By: #### ILEANA EID, , 2776-02, LIVR ####[facility] ([id number])[address], [address] [place] [address]Qtlkgpp [Mass/Vol]5.8 g/dL Low6.0-8.0ProOur [facility] HospitalComment on above:Performed By: #### ILEANA EID, , 2776-02, LIVR ####[facility] ([id number])[address] [address] [place] [address]Xahnxvz (P qing) [Moles/Vol]on 06-02-2024 LACTATE W/REFLEX0.4 mmol/LNormal0.4-2.0ProOur [facility] HospitalComment on above:Result Comment: Result did not trigger repeat Lactate,re-order if needed. Performed By: #### 25229-5 ####[facility] ([id number])[address], [address] [place] [address]KOXMAOZLIpz 31-57-1031Vfexodepk [Mass/Vol] 2.7 mg/dLHigh1.8-2.6ProOur [facility] HospitalComment on above:Performed By: #### ILEANA EID, , 2776-02, LIVR ####[facility] ([id number])[address] [address] [place] [address]Wnftxzglh Ionized ISE (Bld) [Moles/Vol]on 53-76-1483Blncwyqfo [Moles/Vol]0.81 mmol/LHigh0.45-0.74ProOur [facility] HospitalComment on above:Result Comment: NEW REFERENCE RANGEPerformed By: #### 16630-6, 46798-5 ####[facility] ([id number])[address] [address] [place] [address]Hcejsjnodbz peptide B [Mass/Vol]on 41-52-7987Rbsxukevvta peptide B (Bld) [Mass/Vol]214 pg/mLHigh<100.0ProMedica Stout HospitalComment on above:Performed By: #### CBCA, PINR, 38264-5, 86097-9, CMP, 2532-0, 67173-6, 11708-8 ####[facility] ([id number])[address], [address], [place] [address]ZEQPQDPLJIzp 10-72-0207Iuvkgbrtc [Mass/Vol] 2.6 mg/dLNormal2.4-4.9ProMedica [facility]out HospitalComment on above:Performed By: #### CBCA, BMP, 89686-9, 2777-1, LIVR ####[facility] ([id number])[address], [address], [place] [address]XJSZZGO AND INRon 56-08-0636XZF Coag (PPP) [Relative time]1.0 {INR}Normal0.9-1.2ProMedica Stout HospitalComment on above:Performed By: #### CBCA, PINR, 13990-8, 09954-2, CMP, 2532-0, 88194-7, 21814-7 ####[facility] ([id number])[address], [address], [place] [address]ZY Coag (PPP) [Time]11.2 sNormal9.8-13.2 [facility] HospitalComment on above:Performed By: #### CBCA, PINR, 43499- 9, 63546-5, CMP, 2532-0, 32397-4, 20561-0 ####[facility] ([id number])[address], [address] [address]dARB Coag (PPP) [Time]on 12-20-1992uFSA Coag (Bld) [Time]25 pJdg40-06AwfLvxusp [facility]out HospitalComment on above:Performed By: #### CBCA, PINR, 68955-7, 47032-6, CMP, 2532-0, 34439-7, 14991-2 ####[facility] ([id number])[address], [address], [place] [address] HR URINE TOTAL PROTEINon 54-98-0491INWAZ TOTAL MQQXLDA324 mg/49yHdhx4-523DsbQmvufz [facility] HospitalComment on above:Performed By: #### UPRO ####[facility] ([id number])[address], [address], [place] [address]PMRKH METABOLIC PANLon 88-74-9743Icbpe gap [Moles/Vol]14 mmol/LNormal 5-15Pro[facility] HospitalComment on above:Performed By: #### ILEANA EID, 2776-02, ####[facility] ([id number])[address], [address], [place] [address]Cwjzkzr [Mass/Vol]7.3 mg/dLLow8.5-10.5Pro[facility]ica [facility] HospitalComment on above:Performed By: #### ILEANA EID, 2776-02, ####[facility] ([id number])[address], [address], [place] [address]Lufwmxfs [Moles/Vol]106 mmol/CWmjinj72-985CvxMigmqm [facility] HospitalComment on above:Performed By: #### ILEANA EID, 2776-02, ####[facility] ([id number])[address], [address], [place] [address]RQ9 [Moles/Vol] 17 mmol/GJbn14-09NsbMdprki [facility] HospitalComment on above:Performed By: #### ILEANA EID, 2776-02, ####[facility] ([id number])[address], [address], [place] [address]Wzswvifafq [Mass/Vol]0.58 mg/dLNormal 0.40-1.00Pro[facility] HospitalComment on above:Result Comment: METHOD TRACEABLE TO IDMS STANDARDPerformed By: #### ILEANA EID, 2776-02, ####[facility] ([id number])[address] [address] [address]aZRD (CKD-EPI) NON-RACE DEPENDENT>90Normal>59ProOhio[facility] Comment on above:Result Comment: Reported eGFR is based on theCKD-EPI 2020 equation that doesnot use a race coefficient.Performed By: #### ILEANA EID, , ####[facility] ([id number])[address] [address] [place], [place] [address]Gzqimch [Mass/Vol]126 mg/zPHbda20-62KxeSqwfvmProMedica Memorial Hospital Comment on above:Performed By: #### ILEANA EID, 2776-02, ####[facility] ([id number])[address] [address] [address] Potassium [Moles/Vol]3.6 mmol/LNormal3.5-5.0ProOhiohealth Southeastern Medical CenterComment on above:Performed By: #### ILEANA EID, 2776-02, ####[facility] ([id number])[address] [address], [place] [address]Sugbop [Moles/Vol]137 mmol/OQzjfox628-154WnsJhnymo [place] HospitalComment on above:Performed By: #### ILEANA EID, 2776-02, ####[facility] ([id number])[address] [address], [place] [address]Obis nitrogen [Mass/Vol]8 mg/dLNormal5-23 [facility] HospitalComment on above:Performed By: #### ILEANA EID, 2776-02, ####[facility] ([id number])[address], [address], [place] [address]CGU AND AUTO DIFFon 90-19-5331CDUCTTOY BASOPHIL0.0 X10E9/L Normal0.0-0.2Pro[facility]ica [facility] HospitalComment on above:Performed By: #### CBCA ####[facility] ([id number])[address], [place] [address]QKHMKQOS NIRRYXTTMI13.9 X10E9/LHigh1.5-6.6Pro[facility] HospitalComment on above:Performed By: #### CBCA ####[facility] ([id number])[address] [address] [place] [address]Rzglslnre/100 WBC (Bld)0.1 %NormalProOur Lady Of [facility] Hospital HospitalComment on above:Performed By: #### CBCA ####[facility] ([id number])[address] [address] [place] [address]Apyjkuvwdxt (Bld) [#/Vol]0.0 10*3/uLNormal0.0-0.4Pro[facility] Hospital Comment on above:Performed By: #### CBCA ####[facility] ([id number])[address] [address], [place] [address]Ofuayycepgb/100 WBC (Bld) 0.0 %NormalProOur Lady Of Mercy Hospital HospitalComment on above:Performed By: #### CBCA ####[facility] ([id number])[address], [address] [place] [address], [place] [address]Jicnvckrgxn distribution width (RBC) [Ratio]17.7 %High11.5-15.0Pro[facility] HospitalComment on above:Performed By: #### CBCA ####[facility] ([id number])[address], [address] [place] [address]Qlxtrpvpfg (Bld) [Volume fraction]21.6 %Ksu36-17JuwMtiiur [facility] HospitalComment on above: Performed By: #### CBCA ####[facility] ([id number])[address], [address], [place] [address]Kfleqvqtwq (Bld) [Mass/Vol]6.9 g/dL Critically low11.7-15.5PSaint Francis Medical Center Boggs HospitalComment on above:Performed By: #### CBCA ####[facility] ([id number])[address], [address], [place] [address]Xijutpembtc (Bld) [#/Vol]0.5 10*3/uLLow1.0-3.5ProMedLakeHealth [facility] HospitalComment on above:Performed By: #### CBCA ####[facility] ([id number])[address], [place] [address]Ysrfbszxyhz/100 WBC (Bld)3.7 %NormalProMedica Boggs HospitalComment on above:Performed By: #### CBCA ####[facility] ([id number])[address], [place] [address]OBL (RBC) [Entitic mass]28.5 bnTobovv84-96WreBdhbik [facility] HospitalComment on above:Performed By: #### CBCA ####[facility] ([id number])[address], [address], [place] [address]OXWV (RBC) [Mass/Vol] 32.1 g/kFVoijma43-85QopAtpdkj [facility] HospitalComment on above:Performed By: #### CBCA ####[facility] ([id number])[address], [address], [place] [address]THH (RBC) [Entitic vol]89 kUPhoqvb06-490QkmEjsmvo [facility] HospitalComment on above:Performed By: #### CBCA ####[facility] ([id number])[address], [address] [address]Fecrehvxp (Bld) [#/Vol] 0.4 10*3/uLNormal0-0.9Pro[facility] HospitalComment on above:Performed By: #### CBCA ####[facility] ([id number])[address], [address] [place] [address]Ygvwmvemr/100 WBC (Bld)3.1 %NormalProMedica Memorial Hospital Comment on above:Performed By: #### CBCA ####[facility] ([id number])[address] [address]Nlwnefmhveh/100 WBC (Bld) 93.1 %NormalTrinity Health System Twin [facility] Medical Center HospitalComment on above:Performed By: #### CBCA ####[facility] ([id number])[address], [address] [address]Zcgycary mean volume (Bld) [Entitic vol]9.4 fLNormal7-12Pro[facility] HospitalComment on above:Performed By: #### CBCA ####[facility] ([id number])[address], [address] [place] [address]Rrnxfwace (Bld) [#/Vol] 169 10*3/dJVusnbh630-644CfjUnhmpz [facility] HospitalComment on above:Performed By: #### CBCA ####[facility] ([id number])[address], [address] [place] [address]BHM COUNT2.42 X10E12/LLow3.80-5.20ProOhio[facility] Comment on above:Performed By: #### CBCA ####[facility] ([id number])[address], [address] [place] [address]OJN (Bld) [#/Vol]13.9 10*3/uLHigh4.0-11.0[facility] HospitalComment on above:Performed By: #### CBCA ####[facility] ([id number])[address], [address] [address]VTAZLBZP BASOPHIL0.0 X10E9/LNormal0.0-0.2[facility] HospitalComment on above:Performed By: #### CBCMagen, BMP, 2776-02, ####[facility] ([id number])[address], [address], [place] [address]YPITSTQU HDOWSDUGNM57.5 X10E9/LHigh1.5-6.6Pro[facility] HospitalComment on above:Performed By: #### RAGINI, ILEANA, 2776-02, ####[facility] ([id number])[address], [address], [place] [address]Dkatgxdjt/100 WBC (Bld)0.1 %NormalProMedica Boggs HospitalComment on above:Performed By: #### RAGINI, ILEANA, 2776-02, ####[facility] ([id number])[address], [address], [place] [address]Aerockkikhj (Bld) [#/Vol]0.0 10*3/uLNormal 0.0-0.4Pro[facility] HospitalComment on above:Performed By: #### CBCMagen, BMP, 2776-02, ####[facility] ([id number])[address], [address], [place] [address]Bznuicykgyv/100 WBC (Bld)0.0 %NormalProMedica Boggs HospitalComment on above:Performed By: #### CBCMagen, BMP, 2776-02, ####[facility] ([id number])[address] [facility], [place] [address]Tmcwazjxhwu distribution width (RBC) [Ratio]17.6 %High11.5-15.0ProOur [facility] Of Mercy Hospital HospitalComment on above:Performed By: #### ILEANA EID, 2776-02, ####[facility] ([id number])[address] [address] [place], [place] [address]Ockrqpuqlu (Bld) [Volume fraction]23.3 %Hev27-26MflXwqcsv [facility] Comment on above:Performed By: #### ILEANA EID, 2776-02, ####[facility] ([id number])[address] [address] Hemoglobin (Bld) [Mass/Vol]7.5 g/dLLow11.7-15.5PSelect [facility] HospitalComment on above:Performed By: #### ILEANA EID, 2776-02, ####[facility] ([id number])[address] [address]Uhjasrglocn (Bld) [#/Vol]0.5 10*3/uLLow1.0-3.5PSelect [facility] HospitalComment on above: Performed By: #### ILEANA EID, 2776-02, ####[facility] ([id number])[address] [address] [place], [place] [address]Cjunnzvkljf/100 WBC (Bld) 3.2 %NormalProOur Lady Of Mercy Hospital HospitalComment on above:Performed By: #### ILEANA EID, 2776-02, ####[facility] ([id number])[address] [address], [place] [address]HZM (RBC) [Entitic mass]28.7 rwSezict70-80 [facility] HospitalComment on above:Performed By: #### ILEANA EID, 2776-02, ####[facility] ([id number])[address], [address], [place] [address]KVRV (RBC) [Mass/Vol]32.4 g/mTVffdtb22-63RtcLdthgn Boggs HospitalComment on above:Performed By: #### CBCA, BMP, 2776-02, ####[facility] ([id number])[address], [address] [place] [address]DXR (RBC) [Entitic vol]89 yXGparzb44-999SfmPxkocn Boggs HospitalComment on above:Performed By: #### CBCA, BMP, 2776-02, ####[facility] ([id number])[address], [address] [place] [address]Eqvupvtlg (Bld) [#/Vol]0.7 10*3/uLNormal0-0.9[facility] HospitalComment on above:Performed By: #### CBCA, BMP, 2776-02, ####[facility] ([id number])[address], [address], [place] [address]Qqajqfhfv/100 WBC (Bld)4.5 %NormalProMedica Boggs HospitalComment on above:Performed By: #### CBCA, BMP, 2776-02, ####[facility] ([id number])[address], [address], [place] [address]Jhhmqobrofb/100 WBC (Bld)92.2 %NormalProMedica Boggs HospitalComment on above:Performed By: #### CBCA, BMP, 2776-02, ####[facility] ([id number])[address], [address] [place] [address]Xuscrgcb mean volume (Bld) [Entitic vol]9.8 fLNormal7-12Pro[facility] HospitalComment on above:Performed By: #### ILEANA EID, 2776-02, ####[facility] ([id number])[address], [address] [place] [address]Mqpqxonqr (Bld) [#/Vol]162 10*3/eAYnuask275-409KxvOwcwgd [facility] Comment on above:Performed By: #### ILEANA EID, 2776-02, ####[facility] ([id number])[address], [address] [place] [address]XIM COUNT2.62 X10E12/LLow3.80-5.20ProOhiohealth Southeastern Medical CenterComment on above: Performed By: #### ILEANA EID, 2776-02, ####[facility] ([id number])[address], [address] [place] [address]BGQ (Bld) [#/Vol]14.7 10*3/uLHigh4.0-11.0ProOhiohealth Southeastern Medical CenterComment on above:Performed By: #### ILEANA EID, 2776-02, ####[facility] ([id number])[address], [address] [place] [address]Ihogjzg.ionized (Bld) [Mass/Vol]on 27-34-1227SYUFGUD CALCIUM4.2 mg/dLLow4.5-5.3PFort Hamilton HospitalComment on above:Performed By: #### 09449-2, 32358-3 ####[facility] ([id number])[address] [address] [place] [address] 11419Xhqwuch Glucometer (BldC) [Mass/Vol]on 25-05-3977Ghfwwrs [Mass/Vol]126 mg/aCSfis76-07RibSpsvcbOhiohealth Southeastern Medical CenterGlucose [Mass/Vol]162 mg/dCFkjh07-48HcsZwiqdv [place] HospitalGlucose [Mass/Vol]117 mg/vUThid23-79UicAhtjczOhiohealth Southeastern Medical CenterLactate (P qing) [Moles/Vol] on 62-22-5199GKZJBFE W/REFLEX0.7 mmol/LNormal0.4-2.0[facility] Comment on above:Result Comment: Result did not trigger repeat Lactate,re-order if needed.Performed By: #### 76003-5 ####[facility] ([id number])[address], [address] [place] [address] 77080RPDUFKA W/REFLEX1.4 mmol/L Normal0.4-2.0ProOhiohealth Southeastern Medical CenterComment on above:Result Comment: Result did not trigger repeat Lactate,re-order if needed.Performed By: #### 10669-4 ####[facility] ([id number])[address], [address] [place] [address] 40346IOSTATAUQsf 55-32-0182Njjfwcdzl [Mass/Vol]5.6 mg/dLCritically high1.8-2.6 ProMMercy Health West HospitalComment on above:Performed By: #### ILEANA EID, 2777-, ####[facility] ([id number])[address], [address] [place] [address] 98803Jaarzhnlp Ionized ISE (Bld) [Moles/Vol]on 10-79-3914Bmyxccgcl [Moles/Vol]1.50 mmol/LHigh0.45-0.74ProOhiohealth Southeastern Medical CenterComment on above: Result Comment: NEW REFERENCE RANGEPerformed By: #### 69270-9, 46909-6 ####[facility] ([id number])[address], [address] [place] [address] 67427XFRCEZQSUZbz 12-38-4566Yjtxmmszn [Mass/Vol]3.8 mg/dLNormal2.4-4.9ProOhiohealth Southeastern Medical CenterComment on above:Performed By: #### ILEANA EID, 2777-1, ####[facility] ([id number])[address] [facility] [address], [place] [address]XT CHEST 1 VWon 52-81-7425UC CHEST 1 [facility] HospitalalProOhiohealth Southeastern Medical CenterAB RAPID K GLU HHon 99-55-0449CQZNP'S TESTNormalProWadsworth-Rittman Hospitalca [facility] HospitalComment on above:Performed By: #### HRTN ####[facility] ([id number])[address] [place], [place] [address]XPCF,DEFICIT8.8 MMOL/LHigh0.0-2.0ProMedica [facility] HospitalComment on above:Performed By: #### HRTN ####[facility] ([id number])[address] [place], [place] [address]Zusi cyawkfqujen68.6 [degF]Normal 37.0ProWadsworth-Rittman Hospitalca [facility]out HospitalComment on above:Performed By: #### HRTN ####[facility] ([id number])[address] [place], [place] [address]Oqeeyqg [Mass/Vol]102 mg/oYClon86-16AseNpetaj [facility] HospitalComment on above:Performed By: #### HRTN ####[facility] ([id number])[address] [place], [place] [address]GLB4 (Bld) [Moles/Vol]17.5 mmol/ZIdl60-84NrfAjbpgr [facility] HospitalComment on above:Performed By: #### HRTN ####[facility] ([id number])[address] [place], [place] [address]Iycytiuped (Bld) [Volume fraction] 25 %Rhf47-96MzaUxgbrs [facility] HospitalComment on above:Performed By: #### HRTN ####[facility] ([id number])[address] [place] [address] Hemoglobin (Bld) [Mass/Vol]8.3 g/dLLow11.7-15.5ProMedica Togus Va Medical CenterComment on above:Performed By: #### HRTN ####[facility] ([id number])[address] [place], [place] [address]LHYC. O2 CONC.100 %NormalProMedica Memorial Hospital Comment on above:Performed By: #### HRTN ####[facility] ([id number])[address] [place], [place] [address]Gldncx (Bld) [Partial pressure]97 mm[Hg]Xumwqf12-337ZokTjgmpmOhiohealth Southeastern Medical CenterComment on above:Performed By: #### HRTN ####[facility] ([address] [place] [address])[address]141 [place], [place] [address]Vjtlaw saturation in Blood97.8 %Normal>90ProOhiohealth Southeastern Medical CenterComment on above:Performed By: #### HRTN ####[facility] ([address] [place] [address])[address] [place], [place] [address]UJQ383.9 ISWPTyi35-20JkePblbwkProMedica Memorial Hospital Comment on above:Performed By: #### HRTN ####[facility] ([address] [place] [address])[address]141 [place], [place] [address]fG (Bld)7.308 [pH]Low7.350-7.450 ProMedica [facility] Va Medical CenterComment on above:Performed By: #### HRTN ####[facility] ([id number])[address] [place], [place] [address]Mvyikyclc [Moles/Vol]3.5 mmol/LNormal3.5-5.0ProWadsworth-Rittman Hospitalca [facility]out HospitalComment on above: Performed By: #### HRTN ####[facility] ([id number])[address] [place], [place] [address]YKWRED SITEALINENormalProWadsworth-Rittman Hospitalca [facility]out HospitalComment on above:Performed By: #### HRTN ####[facility] ([id number])[address] [facility] [place] [address]ZVVUCJ TYPEArterialNormalProMedica [facility] Hospital Comment on above:Performed By: #### HRTN ####[facility] ([id number])[address] [place], [place] [address]DNQZKDVS BLOOD GASon 05-31-2024 OXNARD' TESTNormalProMedica Stout HospitalComment on above:Performed By: #### ABG ####[facility] ([id number])2[address] N[facility] [place] [address] BASE,DEFICIT7.0 MMOL/LHigh0.0-2.0ProMedica [facility]out HospitalComment on above: Performed By: #### ABG ####[facility] ([id number])[address] N[facility]EJ[facility], [place] [address]Otei ttqcfwtgoqo17.6 [degF]Tqtwfe51.0ProMedica [facility] HospitalComment on above:Performed By: #### ABG ####[facility] ([address] [place] [address])2141 [facility] [place], [place] [address]BBD4 (Bld) [Moles/Vol]17.6 mmol/L Dbp85-29QbkOogwcr [facility] HospitalComment on above:Performed By: #### ABG ####[facility] ([id number])[address] [place] [address] INSP. O2 CONC.40 %NormalProMedica Stout HospitalComment on above:Performed By: #### ABG ####[facility] ([id number])[address] [facility], [place] [address]Lartvg (Bld) [Partial pressure]105 mm[Hg]Cwya59-882MtlYfyzzv [facility] HospitalComment on above:Performed By: #### ABG ####[facility] ([id number])[address] N[address] [facility], [place] [address]Vxdkle saturation in Blood98.0 % Normal>90ProMedica [facility]gs HospitalComment on above:Performed By: #### ABG ####[facility] ([address] [place] [address])2141 [place] [address] OXYGEN SOURCEVentNormalProMedica Stout HospitalComment on above:Performed By: #### ABG ####[facility] ([address] [place] [address])2141 [place], [place] [address]ZXL776.5 GHINBgt33-94KnxXmbewf [facility] HospitalComment on above:Performed By: #### ABG ####[facility] ([address] [place] [address])2141 [place], [place] [address]xB (Bld)7.354 [pH]Normal7.350-7.450ProMedica [facility]out HospitalComment on above:Performed By: #### ABG ####[facility] ([address] [place] [address])2141 [place], [place] [address]JAAKWV SITEALineNormalProMedica Stout HospitalComment on above:Performed By: #### ABG ####[facility] ([address] [place] [address])2141 [place], [place] [address]MAZXUA TYPEARTERIALNormalProOur Lady Of Mercy Hospital Hospital Comment on above:Performed By: #### ABG ####[facility] ([address] [place] [address])2141 [place], [place] [address]NKJCU'S TESTNormalProMedica Stout HospitalComment on above:Performed By: #### ABG ####[facility] ([address] [place] [address])2141 [place], [place] [address]PAAL,DEFICIT7.0 MMOL/LHigh0.0-2.0 ProMedica [facility] HospitalComment on above:Performed By: #### ABG ####[facility] ([id number])[address] [place], [place] [address]Uema glgawuzwlxy16.6 [degF]Qujmng10.0ProMedica [facility] HospitalComment on above: Performed By: #### ABG ####[facility] ([address] [place] [address])2141 [place], [place] [address]MHP6 (Bld) [Moles/Vol]17.6 mmol/FLxp60-33ZehXejtzz [facility] HospitalComment on above:Performed By: #### ABG ####[facility] ([address] [place] [address])2141 [place], [place] [address]NRZF. O2 CONC.100 %NormalProMedica Boggs HospitalComment on above:Performed By: #### ABG ####[facility] ([address] [place] [address])2141 [place], [place] [address]Yvoqdk (Bld) [Partial pressure]273 mm[Hg]Hgpw28-069UwlNfavpk [facility] HospitalComment on above:Performed By: #### ABG ####[facility] ([address] [place] [address])2141 [place], [place] [address]Ezunpy saturation in Jrezi539.0 %Normal>90ProMedica [facility]gs HospitalComment on above:Performed By: #### ABG ####[facility] ([address] [place] [address])[address]141 [place], [place] [address]OQXTLP SOURCEVentNormalProMedica Boggs HospitalComment on above:Performed By: #### ABG ####[facility] ([address] [place] [address])[address]141 [place], [place] [address]GUQ360.0 HEWQQop49-98 [facility] HospitalComment on above:Performed By: #### ABG ####[facility] ([address] [place] [address])[address]141 [place], [place] [address]pX (Bld)7.336 [pH]Low7.350-7.450ProMedica [facility]gs HospitalComment on above:Performed By: #### ABG ####[facility] ([address] [place] [address])[address]141 [place] [address] SAMPLE SITEALineNormalProMedica Stout HospitalComment on above:Performed By: #### ABG ####[facility] ([id number])[address] [place], [place] [address]IARBMM TYPEARTERIALNormalProMedica Stout HospitalComment on above: Performed By: #### ABG ####[facility] ([id number])[address] [place], [place] [address]DNJVO METABOLIC PANLon 58-72-7587Szvdx gap [Moles/Vol]16 mmol/LHigh5-15ProMedica [facility] HospitalComment on above:Performed By: #### ILEANA EID, , 2776-02 ####[facility] ([id number])[address], [address], [place] [address]Ouclhkv [Mass/Vol]7.7 mg/dLLow8.5-10.5ProMedica [facility]out HospitalComment on above:Performed By: #### ILEANA EID, , 2776-02 ####[facility] ([id number])[address], [address], [place] [address]Jzlmuzem [Moles/Vol]102 mmol/RKixzwg38-043UztGgoktv [facility] HospitalComment on above:Performed By: #### ILEANA EID, , 2776-02 ####[facility] ([id number])[address], [address], [place] [address]LL7 [Moles/Vol] 18 mmol/CQtj29-25FkhDvtwyl [facility] HospitalComment on above:Performed By: #### ILEANA EID, , 2776-02 ####[facility] ([id number])[address], [address], [place] [address]Vrmlqmrdmg [Mass/Vol]0.65 mg/dLNormal 0.40-1.00ProMedica [facility]gs HospitalComment on above:Result Comment: METHOD TRACEABLE TO IDMS STANDARDPerformed By: #### ILEANA EID, , 2776-02 ####[facility] ([id number])[address], [address], [place] [address]eTEP (CKD-EPI) NON-RACE DEPENDENT>90Normal>59ProOhiohealth Southeastern Medical Center Comment on above:Result Comment: Reported eGFR is based on theCKD-EPI 2020 equation that doesnot use a race coefficient.Performed By: #### ILEANA EID, , 2776-02 ####[facility] ([id number])[address] [address]Winwbxx [Mass/Vol]114 mg/hPDgyb78-66FllLgepvbOhiohealth Southeastern Medical CenterComment on above:Performed By: #### ILEANA EID, , 2776-02 ####[facility] ([id number])[address] [address] [place] [address]Fhrqhsnmz [Moles/Vol]3.3 mmol/LLow3.5-5.0ProOhiohealth Southeastern Medical CenterComment on above:Performed By: #### ILEANA EID, , 2776-02 ####[facility] ([id number])[address] [address], [place] [address]Npuhdl [Moles/Vol]136 mmol/OMmmmea845-699FeqYxghqo [place] HospitalComment on above: Performed By: #### ILEANA EID, , 2776-02 ####[facility] ([id number])[address] [address]Xpat nitrogen [Mass/Vol]8 mg/dLNormal5-23ProOur Lady Of Mercy Hospital HospitalComment on above:Performed By: #### ILEANA EID, , 2776-02 ####[facility] ([id number])[address], [address], [place] [address]SWB AND AUTO DIFFon 53-22-7993NAHELGAR BASOPHIL0.0 X10E9/LNormal0.0-0.2ProMedica [facility] HospitalComment on above: Performed By: #### ILEANA EID, , 2776-02 ####[facility] ([id number])[address], [address] [place] [address]SDOWUELK OAQUBAXPXH17.4 X10E9/LHigh1.5-6.6ProWadsworth-Rittman Hospitalca [facility]out HospitalComment on above:Performed By: #### ILEANA EID, , 2776-02 ####[facility] ([id number])[address], [address] [place] [address]Nfkxzrtig/100 WBC (Bld)0.3 %NormalProOur Lady Of Mercy Hospital HospitalComment on above:Performed By: #### ILEANA EID, , 2776-02 ####[facility] ([id number])[address], [address] [place] [address]Ayfzjmdeoux (Bld) [#/Vol]0.0 10*3/uLNormal0.0-0.4ProOur [facility] Of Mer[facility] Hospital Hospital Comment on above:Performed By: #### ILEANA EID, , 2776-02 ####[facility] ([id number])[address], [address] [place] [address] Eosinophils/100 WBC (Bld)0.0 %NormalProOur Lady Of Mercy Hospital HospitalComment on above: Performed By: #### ILEANA EID, , 2776-02 ####[facility] ([id number])[address], [address] [place] [address]Eaeelaostcf distribution width (RBC) [Ratio]17.2 %High11.5-15.0ProOur Lady Of Mercy Hospital HospitalComment on above: Performed By: #### RAGINI, ILEANA, , 2776-02 ####[facility] ([id number])[address], [address], [place] [address]Grujxqelbe (Bld) [Volume fraction]25.1 %Tdm72-69GrxFbwsgu [facility] HospitalComment on above:Performed By: #### CBCMagen, BMP, , 2776-02 ####[facility] ([id number])[address], [address], [place] [address]Rjmghydsvh (Bld) [Mass/Vol] 8.2 g/dLLow11.7-15.5Pro[facility]ica [facility] HospitalComment on above:Performed By: #### ILEANA EID, , 2776-02 ####[facility] ([id number])[address], [address], [place] [address]Iycymoiwsyu (Bld) [#/Vol]0.2 10*3/uLLow 1.0-3.5ProMedica [facility] HospitalComment on above:Performed By: #### RAGINI, ILEANA, , 2776-02 ####[facility] ([id number])[address], [address], [place] [address]Fhchkvqncxr/100 WBC (Bld)1.9 %NormalProMedica Boggs HospitalComment on above:Performed By: #### CBCMagen, BMP, , 2776-02 ####[facility] ([id number])[address], [address], [place] [address]NZW (RBC) [Entitic mass]28.7 zwVuqnhu78-15OskQthkba [facility] HospitalComment on above:Performed By: #### RAGINI, BMP, , 2776-02 ####[facility] ([id number])[address], [address] [place] [address]GSMK (RBC) [Mass/Vol]32.7 g/zKAcfytr70-20ZeqUzxsuu [facility] HospitalComment on above: Performed By: #### CBCMagen, BMP, , 2776-02 ####[facility] ([id number])[address], [address] [place] [address]WNO (RBC) [Entitic vol]88 pEEjknoc62-108WkdWaqcsx [facility] HospitalComment on above:Performed By: #### CBCMagen, BMP, , 2776-02 ####[facility] ([id number])[address], [address] [place] [address]Kpzpquyht (Bld) [#/Vol]0.4 10*3/uLNormal0-0.9 [facility] HospitalComment on above:Performed By: #### CBCMagen, BMP, , 2776-02 ####[facility] ([id number])[address], [address] [place] [address]Dimpzdeby/100 WBC (Bld)3.2 %NormalProWadsworth-Rittman Hospitalca [facility] Comment on above:Performed By: #### CBCA, BMP, , 2776-02 ####[facility] ([id number])[address], [address] [place] [address] Neutrophils/100 WBC (Bld)94.6 %NormalProMedica Boggs HospitalComment on above: Performed By: #### CBCA, BMP, , 2776-02 ####[facility] ([id number])[address], [address] [place] [address]Mcypzmhd mean volume (Bld) [Entitic vol]9.9 fLNormal7-12Pro[facility]ica [facility] HospitalComment on above:Performed By: #### CBCA, BMP, , 2776-02 ####[facility] ([id number])[address], [address], [place] [address]Bmkolqnfp (Bld) [#/Vol]168 10*3/rJLuhxcd656-652AytGcamhd [facility] HospitalComment on above:Performed By: #### ILEANA EID, , 2776-02 ####[facility] ([id number])[address], [address] [place] [address]TGB COUNT2.86 X10E12/LLow3.80-5.20Pro[facility] HospitalComment on above:Performed By: #### RAGINI BMP, , 2776-02 ####[facility] ([id number])[address], [address] [place] [address]QOA (Bld) [#/Vol]12.0 10*3/uLHigh4.0-11.0ProMedica [facility] HospitalComment on above:Performed By: #### ILEANA EID, , 2776-02 ####[facility] ([id number])[address], [address] [place] [address]ZWYPWQFJ BASOPHIL0.0 X10E9/LNormal0.0-0.2Pro[facility]ica [facility] HospitalComment on above: Performed By: #### RAGINI, 54129-3 ####[facility] ([id number])[address], [place], [place] [address]GLEADIAI XJCYWHGXUK51.3 X10E9/LHigh1.5-6.6Pro[facility]ica [facility] HospitalComment on above:Performed By: #### RAGINI, 92279-2 ####[facility] ([id number])[address], [address], [place] [address]Rganwlimr/100 WBC (Bld)0.1 %NormalProMedica [facility] Hospital Comment on above:Performed By: #### RAGINI, 60244-5 ####[facility] ([id number])[address] [place], [place] [address]Erjckqquinz (Bld) [#/Vol]0.0 10*3/uLNormal0.0-0.4ProOur [facility] HospitalComment on above: Performed By: #### RAGINI, 60053-3 ####[facility] ([id number])[address], [place], [place] [address]Vqjnwhcvseq/100 WBC (Bld)0.0 %NormalProOur Lady Of [facility] Hospital HospitalComment on above:Performed By: #### CBCMagen, 20949-6 ####[facility] ([id number])[address] [address], [place] [address]Zzwwsdhomct distribution width (RBC) [Ratio]17.6 %High 11.5-15.0ProOur [facility] Of [facility]cy [facility] HospitalComment on above:Performed By: #### CBCMagen, 10825-7 ####[facility] ([id number])[address] [address], [place] [address]Kuiamnwzkm (Bld) [Volume fraction]33.4 %Dik99-18LsmSyehaa [place] HospitalComment on above:Performed By: #### RAGINI, 04665-5 ####[facility] ([id number])[address], [place] [address] Hemoglobin (Bld) [Mass/Vol]10.4 g/dLLow11.7-15.5PSelect Medical [facility] HospitalComment on above:Performed By: #### CBCMagen, 31575-4 ####[facility] ([id number])[address], [place] [address]Rfhwymnfazt (Bld) [#/Vol]0.5 10*3/uLLow1.0-3.5Pro[facility] HospitalComment on above:Performed By: #### CBCMagen, 66197-2 ####[facility] ([id number])[address] [address]Dfjsuuofgqx/100 WBC (Bld)3.2 %NormalProMedica Memorial Hospital Comment on above:Performed By: #### RAGINI, 76371-7 ####[facility] ([id number])[address] [address]KLE (RBC) [Entitic mass] 27.6 soBnvoto55-14BvoImjwwf [facility] HospitalComment on above:Performed By: #### RAGINI, 40191-4 ####[facility] ([id number])[address] [address]ZFRZ (RBC) [Mass/Vol]31.0 g/bLGqr62-47YjdKdzcig [place] HospitalComment on above:Performed By: #### RAGINI, 93679-2 ####[facility] ([id number])[address] [address]LOY (RBC) [Entitic vol]89 vKWyobvg71-479CtuNluqbp [place] HospitalComment on above: Performed By: #### CBCMagen, 66877-9 ####[facility] ([id number])[address] [address]Erohzgpns (Bld) [#/Vol]0.5 10*3/uLNormal0-0.9ProWadsworth-Rittman Hospitalca [facility] HospitalComment on above:Performed By: #### CBCMagen, 03117-4 ####[facility] ([id number])[address] [address]Ykmnfjnka/100 WBC (Bld)3.1 %NormalProMedica Memorial Hospital Comment on above:Performed By: #### CBCMagen, 71504-9 ####[facility] ([id number])[address] [address]Jtgbzylivvx/100 WBC (Bld)93.6 %NormalProWadsworth-Rittman Hospitalca [facility] HospitalComment on above:Performed By: #### RAGINI, 91371-9 ####[facility] ([id number])[address] [address]Gmpncrkz mean volume (Bld) [Entitic vol]10.1 fLNormal7-12 [facility] HospitalComment on above:Performed By: #### CBCMagen, 85902-9 ####[facility] ([id number])[address] [address]Njxhhgygn (Bld) [#/Vol]222 10*3/oTFguasy077-192EyjKhttuk [facility] Comment on above:Performed By: #### RAGINI, 91997-8 ####[facility] ([id number])[address] [address]MKR COUNT3.76 X10E12/L Low3.80-5.20[facility] Stout HospitalComment on above:Performed By: #### RAGINI, 20785-3 ####[facility] ([id number])[address] [address]NDF (Bld) [#/Vol]16.3 10*3/uLHigh4.0-11.0ProWadsworth-Rittman Hospitalca Stout HospitalComment on above:Performed By: #### CBCMagen, 06921-8 ####[facility] ([id number])[address] [address]BN TRA RADIOLOGIST OVERREADon 89-15-7242SR TRA RADIOLOGIST OVERREADNormalProMedica Stout HospitalCalcium.ionized (Bld) [Mass/Vol]on 18-69-8940YSSMTSF CALCIUM4.5 mg/dLNormal4.5-5.3Pro[facility] Stout HospitalComment on above:Performed By: #### 45538-7, 36263-6 ####[facility] ([id number])[address] [place], [place] [address]Zhwbwqvflw Coagulation.derived (PPP) [Mass/Vol]on 74-36-5487PYBTNZPCNK831 mg/mEJpjrck422-422BmjAlrzal [place] HospitalComment on above:Performed By: #### 68834-0, PINR, 80525-6, 87316-9 ####[facility] ([id number])[address], [address] [place] [address]Jvgxjiu Glucometer (BldC) [Mass/Vol]on 45-75-3313Erooxoj [Mass/Vol]136 mg/gGOurw25-64 [facility] Stout HospitalLactate (Bld) [Moles/Vol]on 72-09-5645PQQUK LACTIC ACID 3.4 mmol/LHigh0.4-2.0ProOur Lady Of Mercy Hospital HospitalComment on above:Performed By: #### 54180-6 ####[facility] ([id number])[address] [place], [place] [address]Tlgmdgi (P qing) [Moles/Vol]on 55-90-7664Xlukafy [Moles/Vol]1.6 mmol/L Normal0.4-2.0ProOur Lady Of Mercy Hospital HospitalComment on above:Performed By: #### 75342- 1 ####[facility] ([id number])[address], [address] [place] [address]VVRYAIC W/REFLEX1.6 mmol/LNormal0.4-2.0ProOur Lady Of Mercy Hospital HospitalComment on above:Result Comment: Result did not trigger repeat Lactate,re-order if needed.Performed By: #### 22792-2 ####[facility] ([id number])[address], [address] [place], [place] [address]FPTQLMI W/REFLEX2.2 mmol/L High0.4-2.0[facility] HospitalComment on above:Performed By: #### 95170-8, PINR, 09124-6, 83941-9 ####[facility] ([id number])[address] [place], [place] [address]CXVPRFO W/REFLEX3.8 mmol/LHigh0.4-2.0 [facility] HospitalComment on above:Performed By: #### RAGINI, 23097-1 ####[facility] ([id number])[address], [place], [place] [address]OULQKCZGNin 54-32-3229Xkjsnxxjz [Mass/Vol]4.3 mg/dLHigh1.8-2.6Pro[facility] HospitalComment on above:Performed By: #### ILEANA EID, , 2777-1 ####[facility] ([id number])[address] [place], [place] [address]Lrqqxyfox Ionized ISE (Bld) [Moles/Vol]on 25-55-9616Xvkbudvwv [Moles/Vol] 1.25 mmol/LHigh0.45-0.74Pro[facility] HospitalComment on above:Result Comment: NEW REFERENCE RANGEPerformed By: #### 53838-8, 86134-6 ####[facility] ([id number])[address], [address] [address] PHOSPHORUSon 22-54-7818Nbrfcbadc [Mass/Vol]4.7 mg/dLNormal2.4-4.9Pro[facility] HospitalComment on above:Performed By: #### ILEANA EID, , 2771 ####[facility] ([id number])[address], [address] [place], [place] [address]AIWJDZLNFbt 83-15-9031Eiiciezxu [Moles/Vol]3.7 mmol/LNormal3.5-5.0 [facility]gs HospitalComment on above:Performed By: #### 2823-3 ####[facility] ([id number])[address], [address], [place] [address] PROTIME AND INRon 78-87-4901FLW Coag (PPP) [Relative time]1.0 {INR}Normal0.9-1.2 [facility] HospitalComment on above:Performed By: #### 49064-6, PINR, 09470-2, 16905-8 ####[facility] ([id number])[address], [address], [place] [address]BW Coag (PPP) [Time]11.5 sNormal9.8-13.2[facility] Boggs HospitalComment on above:Performed By: #### 60873-7, PINR, 13123-0, 57418-0 ####[facility] ([id number])[address], [address] [place], [place] [address]UFULM CARDIACon 84-05-0492SLPNN'S TESTNormalProMedica Boggs HospitalComment on above:Performed By: #### AFAB5 ####[facility] ([id number])[address] [place], [place] [address]DATL,DEFICIT8.9 MMOL/LHigh0.0-2.0 [facility] HospitalComment on above:Performed By: #### AFAB5 ####[facility] ([id number])[address] [place], [place] [address]Rtfx uyrzvrcszsq66.6 [degF]Fkpqod18.0Pro[facility] Boggs HospitalComment on above: Performed By: #### AFAB5 ####[facility] ([id number])[address] [place], [place] [address]Owadfxn [Mass/Vol]107 mg/bARctg62-54IeqQzihft Boggs HospitalComment on above:Performed By: #### AFAB5 ####[facility] ([id number])[address] [facility] [place], [place] [address]HBU4 (Bld) [Moles/Vol]17.7 mmol/L Ifw69-21DiuBtwdps [facility]out HospitalComment on above:Performed By: #### AFAB5 ####[facility] ([id number])[address] [facility] [facility] [place] [address] Hematocrit (Bld) [Volume fraction]26 %Zfv37-63WsfKlaxqk [facility]out HospitalComment on above:Performed By: #### AFAB5 ####[facility] ([id number])[address] [facility] [place], [place] [address]Hivptpzsld (Bld) [Mass/Vol]8.6 g/dL Low11.7-15.5Pro[facility]ica Stout HospitalComment on above:Performed By: #### AFAB5 ####[facility] ([id number])[address] [place] [place] [address] INSP. O2 CONC.100 %NormalProMedica Stout HospitalComment on above:Performed By: #### AFAB5 ####[facility] ([id number])[address] [facility] [place], [place] [address]EJEYJOG CALCIUM4.6 mg/dLNormal4.5-5.3[facility] Stout HospitalComment on above:Performed By: #### AFAB5 ####[facility] ([id number])[address] [place], [place] [address]Vlpvth (Bld) [Partial pressure]96 mm[Hg]Tkipll72-610 [facility]out HospitalComment on above:Performed By: #### AFAB5 ####[facility] ([id number])[address] [facility] [place], [place] [address]Ohdeug saturation in Blood97.3 %Normal>90Pro[facility] Boggs HospitalComment on above: Performed By: #### AFAB5 ####[facility] ([id number])[address] [place], [place] [address]KBL134.1 KZNZAqoilr73-48MksIdjctt [place] HospitalComment on above:Performed By: #### AFAB5 ####[facility] ([id number])2 [place], [place] [address]bR (Bld)7.288 [pH]Low7.350-7.450ProOhiohealth Southeastern Medical CenterComment on above:Performed By: #### AFAB5 ####[facility] ([id number])2 [place], [place] [address]Qdanvwehv [Moles/Vol]3.5 mmol/L Normal3.5-5.0ProOhiohealth Southeastern Medical CenterComment on above:Performed By: #### AFAB5 ####[facility] ([id number])2 [place] [address] SAMPLE SITEALINENormalProMedica Memorial HospitalComment on above:Performed By: #### AFAB5 ####[facility] ([id number])2 [place], [place] [address]KGGDCC TYPEArterialNormalProMedica Memorial HospitalComment on above: Performed By: #### AFAB5 ####[facility] ([id number])[address] [place] [address]Dhtrnnnm Pathologyon 34-40-8605Qefxmddd PathologyNormal [facility] Memorial HospitalComment on above:Result Comment: [facility] [address] [place] [address] Surgical Pathology ConsultationPatient Name:JUAN LUIS STOREY:1990 (Age: 33)Gender:FTaken:05/31/2024Reported:06/03/2024Physician(s):PADMINI Eden To: Rec. #:[id number]: #[id number] Pathologic DiagnosisSmall bowel; segmental resection: 2 benign segments of small bowel with dilated lumen, transmural hemorrhagic ischemic necrosis and acute serositis. Resection margins are viable and unremarkable. No granuloma, dysplasia or neoplasm. Report Electronically Signed Outwa06/03/2024Jose Quinonez MDInterpretation performed at [facility], [address] [place] [address], [place] [address], License number: [id number].Clinical HistoryPerforated viscous.Gross DescriptionReceived in formalin labeled STOREY, small bowel are two dilated, extensively dusky [...] submitted in cassette C and D and ambulatory service representative sections from the center of each are submitted in cassettes E-F. (6,ss,[id number], m6.1) GKgk05/31/2024RGSpecimen(s) Received Small bowelFee Codes(s):1; [address]30[address]JKMVP VOLUME AND TIMEon 41-18-7331SHXK 24 hNormalProOur Lady Of Mercy Hospital HospitalComment on above:Performed By: #### UPRO ####[facility] ([id number])[address], [address] [place] [address]MRXJC LIVXWS7476 mLNormalTrinity Health System Twin City Medical Center HospitalComment on above: Performed By: #### UPRO ####[facility] ([id number])[address], [address] [place] [address] ABD NG TUBE PLACEMENT 1 VIEWon 05-31-2024 XR ABD NG TUBE PLACEMENT 1 VIEWNormalProOhiohealth Southeastern Medical CenterXR CHEST 1 VWon 00-29-6849VC CHEST 1 VWNormalProMedica Togus Va Medical CenterXR CHEST 1 VWNormal [facility] HospitalaPTT Coag (PPP) [Time]on 87-56-8621lNXV Coag (Bld) [Time]28 qEqvgpy46-74KytImpcia [facility] Va Medical CenterComment on above:Performed By: #### 69395-3, PINR, 25821-9, 39315-1 ####[facility] ([id number])[address] [facility], [address] [place] [address] CBC WITH AUTO DIFFon 79-79-0391QVRNNPLLQ ABSOLUTE EFGK6YCIH HealthcareBasophils/100 WBC (Bld)0.4 %0.2 - 2.0 %NOMS HealthcareEosinophils/100 WBC (Bld)1.1 %0.9 - 7.0 %[facility] Erythrocyte distribution width (RBC) [Ratio]15.5 %High11.0 - 15.0 %NOMS HealthcareHematocrit (Bld) [Volume fraction]27.6 %Low36.0 - 48.0 %NOM HealthcareHemoglobin (Bld) [Mass/Vol]8.6 g/dLLow12.0 - 16.0 g/dLNOAL Healthcare IMMATURE GRANULOCYTES ABS AUTO0.04HighNOAL HealthcareImmature granulocytes/100 WBC (Bld)0.8 %High0.0 - 0.5 %NOMS HealthcareInterpretation and review of laboratory resultsAbnormalNOMS HealthcareLYMPHOCYTES ABSOLUTE AUTO1.8NOMS HealthcareLymphocytes/100 WBC (Bld)33.3 %20.5 - 60.0 %NOMSaint Alexius HospitalMCH (RBC) [Entitic mass]29.1 pg26.7 - 34.0 pgNOAL HealthcareMCHC (RBC) [Mass/Vol]31.2 g/dL 29.9 - 35.2 g/dLNOEastern Missouri State HospitalMCV (RBC) [Entitic vol]93.2 fL81.0 - 99.0 fLNOAL HealthcareMONOCYTES ABSOLUTE AUTO0.5NOMS HealthcareMonocytes/100 WBC (Bld)9.1 % 1.7 - 12.0 %NOMS HealthcareNEUTROPHILS ABSOLUTE AUTO2.9[facility] Neutrophils/100 WBC (Bld)55.3 %43.0 - 75.0 %NOMS HealthcarePlatelet mean volume (Bld) [Entitic vol]11.8 fL9.5 - 13.5 fLNOMS HealthcareTBH EO #0.1[facility] TBH ENE812CWDH HealthcareTB RBC2.96LowNOMS HealthcareTBH WBC5.3[facility] CLINISYNCNOAL HealthcareCBC AND AUTO DIFFon 55-45-7482LKWKQZSX BASOPHIL0.0 X10E9/LNormal0.0-0.2[facility] Stout HospitalComment on above:Performed By: #### CBCA, 61184-8, CMP, FEPR, 2276-4, 2284-8, 2132-9, 29338-4 ####[facility] ([id number])[address] [facility], [address] [place] [address]PZSNVNYJ OGIPTSMGTB89.9 X10E9/LHigh1.5-6.6ProWadsworth-Rittman Hospitalca Stout HospitalComment on above: Performed By: #### CBCA, 89597-9, CMP, FEPR, 2276-4, 2284-8, 2131-9, 13145-2 ####[facility] ([id number])[address] [facility], [address] [place] [address]Mnfgsqloj/100 WBC (Bld)0.2 %NormalProOur Lady Of Mercy Hospital HospitalComment on above:Performed By: #### CBCA, 01200-8, CMP, FEPR, 2276-4, 2284-8, 2131-9, 88007-6 ####[facility] ([id number])[address] [facility], [address] [place] [address]Yzaildvqnbc (Bld) [#/Vol]0.0 10*3/uLNormal0.0-0.4ProWadsworth-Rittman Hospitalca Stout HospitalComment on above:Performed By: #### CBCA, 13979-9, CMP, FEPR, 2276-4, 2284-8, 2132-9, 30254-9 ####[facility] ([id number])[address], [address] [place], [place] [address]Nglvydaevqw/100 WBC (Bld) 0.0 %NormalProOhiohealth Southeastern Medical CenterComment on above:Performed By: #### CBCA, 82900-1, CMP, FEPR, 2276-4, 2284-8, 2131-9, 64613-7 ####[facility] ([id number])[address], [address] [place] [address]Qtonwhsvrsz distribution width (RBC) [Ratio]16.4 %High11.5-15.0[facility] Comment on above:Performed By: #### CBCA, 91907-0, CMP, FEPR, 2276-4, 2284-8, 2131-9, 98314-1 ####[facility] ([id number])[address] [address] [place], [place] [address]Nmvbtepyjo (Bld) [Volume fraction]30.2 %Qhj71-96 ProMMercy Health West HospitalComment on above:Performed By: #### CBCA, 71008-4, CMP, FEPR, 2276-4, 2284-8, 2131-9, 86544-7 ####[facility] ([id number])[address] [address] [place] [address] 668[address]Ptfrjormch (Bld) [Mass/Vol] 9.9 g/dLLow11.7-15.5PFort Hamilton HospitalComment on above:Performed By: #### CBCA, 22146-6, CMP, FEPR, 2276-4, 2284-8, 2131-9, 85544-6 ####[facility] ([id number])[address] [address] [place] [address], [place] [address]Rgyqvmeiqsv (Bld) [#/Vol]0.6 10*3/uLLow1.0-3.5PFort Hamilton HospitalComment on above: Performed By: #### CBCA, 26923-1, CMP, FEPR, 2276-4, 2284-8, 2-9, 26624-2 ####[facility] ([id number])[address], [address] [place] [address] 23414Uaewmkzvsya/100 WBC (Bld)4.9 %NormalProOur Lady Of Mercy Hospital HospitalComment on above:Performed By: #### CBCA, 96860-2, CMP, FEPR, 2276-4, 2284-8, 2131-9, 25729-6 ####[facility] ([id number])[address], [address] [place] [address]NYY (RBC) [Entitic mass]28.8 viSewxxl15-57IewQgkcpj [place] HospitalComment on above:Performed By: #### CBCA, 41171-0, CMP, FEPR, 2276-4, 2284-8, 2131-9, 85091-5 ####[facility] ([id number])[address], [address] [place] [address] 20671PSGS (RBC) [Mass/Vol]32.8 g/jZZleoxd97-84 [facility] HospitalComment on above:Performed By: #### CBCA, 63019-1, CMP, FEPR, 2276-4, 2284-8, 2131-9, 64550-8 ####[facility] ([id number])[address] [address] [place] [address] 24[address]IWV (RBC) [Entitic vol]88 vRJrsxco77-165KdwFrykfi [place] HospitalComment on above:Performed By: #### CBCA, 81120-0, CMP, FEPR, 2276-4, 2284-8, 2131-9, 71234-6 ####[facility] ([id number])[address] [address] [place] [address] 98923Lleutfmgl (Bld) [#/Vol] 0.2 10*3/uLNormal0-0.9ProWadsworth-Rittman Hospitalca Stout HospitalComment on above:Performed By: #### CBCA, 02836-0, CMP, FEPR, 2276-4, 2284-8, 2131-9, 32621-8 ####[facility] ([id number])[address], [address], [place] [address] Monocytes/100 WBC (Bld)1.4 %NormalProMedica Boggs HospitalComment on above: Performed By: #### CBCA, 61095-7, CMP, FEPR, 2276-4, 2284-8, 2131-9, 07554-5 ####[facility] ([id number])[address], [address] [place], [place] [address]Zdznxctwkmn/100 WBC (Bld)93.5 %NormalProMedica Boggs HospitalComment on above:Performed By: #### CBCA, 19627-4, CMP, FEPR, 2276-4, 2284-8, 2131-9, 06270-5 ####[facility] ([id number])[address], [address] [place], [place] [address]Lqrtbroe mean volume (Bld) [Entitic vol]10.1 fLNormal7-12 [facility] HospitalComment on above:Performed By: #### CBCA, 57697-6, CMP, FEPR, 2276-4, 2284-8, 2131-9, 26786-1 ####[facility] ([id number])[address], [address] [place], [place] [address]Lbalfbeqy (Bld) [#/Vol]191 10*3/xFEnbjfd723-425LfqYoqrik Boggs HospitalComment on above:Performed By: #### CBCA, 10825-5, CMP, FEPR, 2276-4, 2284-8, 2-9, 36916-5 ####[facility] ([id number])[address], [address] [place], [place] [address]PPV COUNT3.44 X10E12/LLow3.80-5.20ProOur [facility] Of [facility]cy Hospital HospitalComment on above:Performed By: #### CBCA, 20296-2, CMP, FEPR, 2276-4, 2284-8, 2-9, 09522-5 ####[facility] ([id number])[address], [address] [place], [place] [address]YZQ (Bld) [#/Vol]12.8 10*3/uLHigh4.0-11.0ProOur Lady Of Mercy Hospital HospitalComment on above: Performed By: #### CBCA, 06886-2, CMP, FEPR, 2276-4, 2284-8, 2131-9, 82341-0 ####[facility] ([id number])[address], [address] [place] [address] 30744WSJVRXWZAOAVG METABOLIC PANELon 97-63-1754Pihdesp [Mass/Vol]3.9 g/dLNormal 3.2-5.3ProMedLakeHealth [facility] HospitalComment on above:Performed By: #### CBCA, 08212- 1, CMP, FEPR, 2276-4, 2284-8, 2131-9, 58183-6 ####[facility] ([id number])[address], [address] [place] [address]VLR [Catalytic activity/Vol]50 U/UQpsidm51-036KuuGagpae [place] HospitalComment on above: Performed By: #### CBCA, 82141-2, CMP, FEPR, 2276-4, 2284-8, 2131-9, 84936-6 ####[facility] ([id number])[address], [address] [place], [place] [address]YAD [Catalytic activity/Vol]6 U/LNormal0-31PSelect Medical [facility]Health [facility] HospitalComment on above:Performed By: #### CBCA, 88259-2, CMP, FEPR, 2276-4, 2284-8, 2131-9, 13744-2 ####[facility] ([id number])[address], [address], [place] [address]Lfqns gap [Moles/Vol]14 mmol/LNormal5-15[facility]out HospitalComment on above:Performed By: #### CBCA, 81028-8, CMP, FEPR, 2276-4, 2284-8, 2131-9, 83994-3 ####[facility] ([id number])[address], [address] [place] [address]KHK [Catalytic activity/Vol]14 U/LNormal0-41 [facility] HospitalComment on above:Performed By: #### CBCA, 81103-1, CMP, FEPR, 2276-4, 2284-8, 2131-9, 26001-9 ####[facility] ([id number])[address], [address] [address]Dsnugtyqw [Mass/Vol]0.5 mg/dLNormal0.3-1.2Pro[facility] HospitalComment on above:Performed By: #### CBCA, 52913-7, CMP, FEPR, 2276-4, 2284-8, 2131-9, 42992-4 ####[facility] ([id number])[address], [address] [address]Sxnplra [Mass/Vol]8.5 mg/dLNormal8.5-10.5Pro[facility] Stout HospitalComment on above: Performed By: #### CBCA, 56419-0, CMP, FEPR, 2276-4, 2284-8, 2131-9, 22113-0 ####[facility] ([id number])[address], [address], [place] [address]Gyvybfue [Moles/Vol]102 mmol/MIurexh08-458LysScuqtx Boggs HospitalComment on above:Performed By: #### CBCA, 22069-9, CMP, FEPR, 2276-4, 2284-8, 9, 89086-1 ####[facility] ([id number])[address], [address] [place] [address]BA0 [Moles/Vol]19 mmol/JAhr78-92RbfUpslwaFort Hamilton Hospital Comment on above:Performed By: #### CBCA, 69895-4, CMP, FEPR, 6-4, 2283-8, 2131-10, 28802-9 ####[facility] ([id number])[address], [address] [place], [place] [address]Slprddednw [Mass/Vol]0.37 mg/dLLow0.40-1.00ProOhiohealth Southeastern Medical CenterComment on above:Result Comment: METHOD TRACEABLE TO IDMS STANDARDPerformed By: #### CBCMagen, 74356-8, CMP, FEPR, 6-4, 2283-8, 2131-10, 01043-1 ####[facility] ([id number])[address], [address], [place] [address]cTHK (CKD-EPI) NON-RACE DEPENDENT>90Normal>59ProOhiohealth Southeastern Medical CenterComment on above:Result Comment: Reported eGFR is based on theCKD-EPI 2020 equation that doesnot use a race coefficient.Performed By: #### CBCA, 47126-4, CMP, FEPR, 6-4, 2283-8, 2131-10, 93475-6 ####[facility] ([id number])[address] [address], [place] [address]Avhqxsy [Mass/Vol]120 mg/bGKobp93-07SpwImjhdkOhiohealth Southeastern Medical CenterComment on above:Performed By: #### CBCA, 21939-0, CMP, FEPR, 2276-4, 2284-8, 9, 85348-1 ####[facility] ([id number])[address], [address] [address]Uaolumkrn [Moles/Vol]3.4 mmol/LLow3.5-5.0ProMedica [facility]out HospitalComment on above: Performed By: #### CBCA, 02196-1, CMP, FEPR, 2276-4, 2283-8, 9, 99863-7 ####[facility] ([id number])[address], [address] [place] [address]Hkedeid [Mass/Vol]7.3 g/dLNormal6.0-8.0ProMedica [facility] HospitalComment on above:Performed By: #### CBCA, 44000-6, CMP, FEPR, 6-4, 2283-8, 2131-10, 44805-8 ####[facility] ([id number])[address] [address]Ebiogm [Moles/Vol]135 mmol/OQujqqr737-145KydMdvkju [facility]out HospitalComment on above:Performed By: #### CBCA, 33058-1, CMP, FEPR, 6-4, 2283-8, 2131-10, 39376-1 ####[facility] ([id number])[address] [address]Jkhc nitrogen [Mass/Vol]5 mg/dLNormal5-23 [facility] HospitalComment on above:Performed By: #### CBCA, 18586-5, CMP, FEPR, 6-4, 2283-8, 2131-9, 74582-9 ####[facility] ([id number])[address] [address]GNHV SCREEN, URINEon 88-50-9943KJFXXGLNGVU/METHAMPNegativeNormalNEGProWadsworth-Rittman Hospitalca [facility]out HospitalComment on above:Result Comment: AMPH/METH screening cut off = 1000 ng/mLPerformed By: #### DSU ####[facility] ([id number])[address], [place] [address]HLNSOEGFOSWQWdarlyqgXttxdcAMNJwqCezndf Boggs HospitalComment on above:Result Comment: Barbiturates screening cut off value = 200 ng/mL Performed By: #### DSU ####[facility] ([id number])[address], [address] [address]XRQILDMCIMEAIAHEiomtblzHekbhlHENZggOntndb Boggs HospitalComment on above:Result Comment: Benzodiazepines screening cut off value = 200 ng/mLPerformed By: #### DSU ####[facility] ([id number])[address], [address] [place], [place] [address]YYMFBJSXMUSTKzprjjbfKafblf NEGProMedica Boggs HospitalComment on above:Result Comment: Cannabinoids/THC screening cut off value = 50 ng/mLPerformed By: #### DSU ####[facility] ([id number])[address], [address], [place] [address]XKVGSPZ METABOLITENegativeNormalNEGProMedica Boggs HospitalComment on above:Result Comment: Cocaine screening cut off value = 300 ng/mLPerformed By: #### DSU ####[facility] ([id number])[address], [address] [place], [place] [address]NQPQWGJPzlrhzbrDipimjQINRtqSvliqh Boggs HospitalComment on above:Result Comment: Ecstasy screening cut off value = 500 ng/mLThis report is intended for use in clinicalmonitoring or management of patients.Performed By: #### DSU ####[facility] ([id number])[address], [address] [address]CNKRSJUOAPcaiqhdjEnqkkoOTFKlwYvoosa [facility]gs HospitalComment on above:Result Comment: Methadone screening cut off value = 300 ng/mL.Performed By: #### DSU ####[facility] ([id number])[address], [address] [place] [address]RBGLCLCFtoeewbzMyyrgmfrCJOTgfLwaowx [facility]out HospitalComment on above:Result Comment: Confirmation available upon request.Opiates screening cut off value = 300 ng/mLNOTE:This test is used for the detection ofcodeine, hydrocodone (>1000 ng/mL), morphineand hydromorphone (>900 ng/mL) in urine.Performed By: #### DSU ####[facility] ([id number])[address] [facility], [address] [address]WCYWDYWYEXudcixgeLcblppVOLBinSnuzrv [facility]out HospitalComment on above:Result Comment: Oxycodone screening cut off value = 300 ng/mLNOTE:This test is used for the detection ofoxycodone and oxymorphone in urine.Performed By: #### DSU ####[facility] ([id number])[address] [address]QSCZSOHGOWZDKAsqitqxhMbnkxvJYQRntQftdxp [facility] HospitalComment on above: Result Comment: Phencyclidine screening cut off value = 25 ng/mLPerformed By: #### DSU ####[facility] ([id number])[address] [place] [address]KSDQUPCObs 21-00-2960Pfqqoeab [Mass/Vol]8 ng/vHYxk63-464 [facility] HospitalComment on above:Performed By: #### CBCA, 62866-4, CMP, FEPR, 2276-4, 4-8, 9, 83799-7 ####[facility] ([id number])[address] [facility] [address] [place] [address]Ffwfxn [Mass/Vol]on 57-52-4178ZHRFE ACID>25.0Normal>5.8[facility] HospitalComment on above: Result Comment: NEW REFERENCE RANGEPerformed By: #### CBCA, 54733-8, CMP, FEPR, 2276-4, 2284-8, 9, 71790-6 ####[facility] ([id number])[address], [address] [place] [address]JKWR PROFILEon 05-30-2024 Iron [Mass/Vol]28 ug/mUPdv36-399AwwQabnqn [facility] HospitalComment on above: Performed By: #### CBCA, 20133-0, CMP, FEPR, 2276-4, 2283-8, 2131-10, 75138-8 ####[facility] ([id number])[address], [address] [place], [place] [address]BDAB SPYESVO082 ug/vKRjqp700-097NptFfttze [facility] HospitalComment on above: Performed By: #### CBCA, 63318-3, CMP, FEPR, 2276-4, 2283-8, 2131-10, 84446-8 ####[facility] ([id number])[address], [address] [place], [place] [address]KGVM SATURATION5 % AYHMBWBQLZGui01-64AcjHchtnz [facility] HospitalComment on above:Performed By: #### CBCA, 52333-7, CMP, FEPR, 2276-4, 2283-8, 2131-10, 48793-7 ####[facility] ([id number])[address], [address] [place], [place] [address]Uztjrja (P qing) [Moles/Vol]on 26-25-2533MMFRIBP W/REFLEX1.1 mmol/LNormal0.4-2.0ProOur [facility] Of Mercy Hospital HospitalComment on above:Result Comment: Result did not trigger repeat Lactate,re-order if needed.Performed By: #### CBCA, 53474-6, CMP, FEPR, 2276-4, 2283-8, 2131-10, 59783-3 ####[facility] ([id number])[address], [address] [address]HCOFIQC CREAT RATIOon 23-66-8191ZVOYAU URINE FVYHVZV014 mg/LHigh<120[facility] Comment on above:Performed By: #### UPCR ####[facility] ([id number])[address] [address]C/PRO/HEEL SEATER RATIO CALC1.28 High<0.2[facility]out HospitalComment on above:Result Comment: Nephrotic Syndrome is associated with ratios >3.5Performed By: #### UPCR ####[facility] ([id number])[address] [address] [place] [address]ARJUP CREATININE,RDM39.15 mg/dLNormalTrinity Health System [facility] HospitalComment on above: Performed By: #### UPCR ####[facility] ([id number])[address] [address]T. pallidum IgG+IgM IA Ql (S)on 05-30-2024 Syphilis Total0.2 AINormal0.0-0.8[facility] HospitalComment on above: Result Comment: NON REACTIVENo serologic evidence of infection to Treponema pallidum (syphilis).Repeat testing may be considered in patients with suspected acute or primary syphilis in 2 to 4 weeks.Performed By: #### CBCA, 15422-2, CMP, FEPR, 2276-4, 2284-8, 2132-9, 35002-7 ####[facility] ([id number])[address] [address]OJAEQKVGIJzi 05-30-2024 Bilirubin Ql (U)NegativeNormalNEGProOur Lady Of Mercy Hospital HospitalComment on above: Performed By: #### UA ####[facility] ([id number])[address] [address]UXAUK/HGBNegativeNormalNEGProOur Lady Of Mercy Hospital HospitalComment on above:Performed By: #### UA ####[facility] ([id number])[address] [address]Ndfrg (U)YELLOWNormalYELLOW [facility] HospitalComment on above:Performed By: #### UA ####[facility] ([id number])[address], [address] [place] [address] Glucose Ql (U)200 mg/dLAbnormalNEGProMedica Stout HospitalComment on above: Performed By: #### UA ####[facility] ([id number])[address], [address] [address]Wifuawo Ql (U)20 mg/dLAbnormalNEGProMedica Stout HospitalComment on above:Performed By: #### UA ####[facility] ([id number])[address], [address] [address] [address]Basbxnudg esterase Test strip Ql (U)NegativeNormalNEGProMedica Stout HospitalComment on above:Performed By: #### UA ####[facility] ([id number])[address], [address],[place] [address]RDSTUMNUBSWSYRgitdskyBQSHGrtHrcptn Stout HospitalComment on above:Performed By: #### UA ####[facility] ([id number])[address], [address] [address]Ygoafza Ql (U)NegativeNormal NEGProMedica Stout HospitalComment on above:Performed By: #### UA ####[facility] ([id number])[address], [address] [address]kW (U) 6.5 [pH]Normal5.0-8.5ProMedica Stout HospitalComment on above:Performed By: #### UA ####[facility] ([id number])[address], [address] [address]Mirhrhd Ql (U)30 mg/dLAbnormalNEGProMedica Stout Hospital Comment on above:Performed By: #### UA ####[facility] ([id number])0 [address] [address] [place] [address]Q.B.CELLS2 /hpfNormal0-5 ProMedica Boggs HospitalComment on above:Performed By: #### UA ####[facility] ([id number])[address] [facility] [facility] [address] [place] [address] Specific gravity (U) [Rel density]1.310Xmmycm5.003-1.035ProMedica Boggs HospitalComment on above:Performed By: #### UA ####[facility] ([id number])[address] [place] [address] [place] [address]ZNIMOGDA EPITHELIUM<1Normal 0-5ProMedica Boggs HospitalComment on above:Performed By: #### UA ####[facility] ([id number]) [facility] [address] [place] [address] TURBIDITYCLEARNormalCLEARProMedica Boggs HospitalComment on above:Performed By: #### UA ####[facility] ([id number])[address] [address]Awyuwughthuk (U) [Mass/Vol]mg/dLNormal<1.1ProMedica Stout HospitalComment on above:Performed By: #### UA ####[facility] ([id number])[address] [facility] [address] [place] [address]V.B.CELLS1 /hpfNormal0-5 ProMedica Boggs HospitalComment on above:Performed By: #### UA ####[facility] ([id number])[address] [facility] [address] [place] [address] VITAMIN B12on 80-57-7899Hxceyvtqv (Vitamin B12) [Mass/Vol]193 pg/fSPbxcgm396-991 ProMedica Boggs HospitalComment on above:Performed By: #### CBCA, 91948-8, CMP, FEPR, 2276-4, 2284-8, 2132-9, 76739-4 ####[facility] ([id number])[address] [facility], [address] [place] [address]KGQ CBC WITH AUTO DIFFon 83-56-5566CFGWFUTLX ABSOLUTE TVGO6PPDO HealthcareBasophils/100 WBC (Bld)0.6 %0.2 - 2.0 %NOMS HealthcareEosinophils/100 WBC (Bld)0.6 %Low0.9 - 7.0 %NOMS HealthcareErythrocyte distribution width (RBC) [Ratio]15.5 %High11.0 - 15.0 % NOMS HealthcareHematocrit (Bld) [Volume fraction]28.8 %Low36.0 - 48.0 %NOM HealthcareHemoglobin (Bld) [Mass/Vol]8.9 g/dLLow12.0 - 16.0 g/dLRusk Rehabilitation Center IMMATURE GRANULOCYTES ABS AUTO0.04HighNOAL HealthcareImmature granulocytes/100 WBC (Bld)0.6 %High0.0 - 0.5 %[facility] HealthcareInterpretation and review of laboratory resultsAbnormalNOAL HealthcareLYMPHOCYTES ABSOLUTE AUTO1.8NOMS HealthcareLymphocytes/100 WBC (Bld)25.5 %20.5 - 60.0 %[facility] ServicesH (RBC) [Entitic mass]29 pg26.7 - 34.0 pgNOSSM DePaul Health CenterHC (RBC) [Mass/Vol]30.9 g/dL 29.9 - 35.2 g/dLRusk Rehabilitation CenterMCV (RBC) [Entitic vol]93.8 fL81.0 - 99.0 fLNOAL HealthcareMONOCYTES ABSOLUTE AUTO0.4NOMS HealthcareMonocytes/100 WBC (Bld)6.2 % 1.7 - 12.0 %NOMS HealthcareNEUTROPHILS ABSOLUTE AUTO4.7[facility] Neutrophils/100 WBC (Bld)66.5 %43.0 - 75.0 %NOM HealthcarePlatelet mean volume (Bld) [Entitic vol]11.9 fL9.5 - 13.5 fLNOAL HealthcareTBH EO #0[facility] TBH [id number] [facility] RBC3.07LowNOEllis Fischel Cancer Center WBC7.1NOMS [facility] CLINISYNCNOEastern Missouri State HospitalALL CBC WITH AUTO DIFFon 35-14-8413QUYPVATYJ ABSOLUTE XVMM8EHIM HealthcareBasophils/100 WBC (Bld)0.6 %0.2 - 2.0 %[facility]OMSaint [facility]ius Hospital Eosinophils/100 WBC (Bld)0.9 %0.9 - 7.0 %[facility] CenterErythrocyte distribution width (RBC) [Ratio]15.5 %High11.0 - 15.0 %[facility] CenterHematocrit (Bld) [Volume fraction]29.8 %Low36.0 - 48.0 %[facility] CenterHemoglobin (Bld) [Mass/Vol]9.5 g/dLLow12.0 - 16.0 g/dLRusk Rehabilitation CenterIMMATURE GRANULOCYTES ABS AUTO0.05HighNOEastern Missouri State HospitalImmature granulocytes/100 WBC (Bld)0.7 %High0.0 - 0.5 %[facility] CenterInterpretation and review of laboratory resultsAbnormalNOEastern Missouri State HospitalLYMPHOCYTES ABSOLUTE AUTO1.8NOEastern Missouri State HospitalLymphocytes/100 WBC (Bld) 26.4 %20.5 - 60.0 %[facility] ServicesH (RBC) [Entitic mass]30 pg26.7 - 34.0 pg [facility] (RBC) [Mass/Vol]31.9 g/dL29.9 - 35.2 g/dLSaint Francis Hospital & Health ServicesV (RBC) [Entitic vol]94 fL81.0 - 99.0 fLRusk Rehabilitation CenterMONOCYTES ABSOLUTE AUTO0.4 [facility] CenterMonocytes/100 WBC (Bld)6.5 %1.7 - 12.0 %[facility] NEUTROPHILS ABSOLUTE AUTO4.4[facility] CenterNeutrophils/100 WBC (Bld)64.9 %43.0 - 75.0 %[facility] CenterPlatelet mean volume (Bld) [Entitic vol]11.5 fL9.5 - 13.5 fLPershing Memorial Hospital EO #0.1NOMS [facility] HospitalTB [id number] [facility] RBC3.17 LowNOEllis Fischel Cancer Center WBC6.8NOEastern Missouri State HospitalCLINISYNCNSaint Mary's Health CenterUrinalysis macro (dipstick) panel (U)on 83-62-1178Rejfeybxl, UANegativeNegative - 4(70) +++ mg/dLNOMS HealthcareBlood, UANegativeNegative - 50 Enrrique/mcLNOMS Healthcare Clarity, UACloudyNOMS HealthcareColor, UAOrangeNOMS HealthcareGlucose, UA NegativeNegative - 2000(110) ++++ mg/dLNOMS HealthcareInterpretation and review of laboratory resultsAbnormalNOAL HealthcareKetones, UAPositiveNegative - 160(16) ++++ mg/dLNOMS HealthcareComment on above:15Leukocytes, UANegative Negative - 500+++ Cam/mcLNOMS HealthcareNitrite, UANegativeNegative - Positive NOMS HealthcarepH, UA65 - 9NOMS HealthcareProtein, UAPositiveNegative - 2000(20) ++++ mg/dLNOMS HealthcareComment on above:30Spec Grav, UA1.0251 - 1.03NOMS HealthcareUrobilinogen, UA1.00.2 - 12 mg/dLNOMS HealthcareNOMS HealthcareALL CBC WITH AUTO DIFFon 14-32-2656QGCRDFGZS ABSOLUTE FNRF7AAAR HealthcareBasophils/100 WBC (Bld)0.4 %0.2 - 2.0 %NOMS HealthcareEosinophils/100 WBC (Bld)0.5 %Low0.9 - 7.0 %NOMS HealthcareErythrocyte distribution width (RBC) [Ratio]15 %11.0 - 15.0 %NOMS HealthcareHematocrit (Bld) [Volume fraction]29.6 %Low36.0 - 48.0 %NOMS HealthcareHemoglobin (Bld) [Mass/Vol]9.7 g/dLLow12.0 - 16.0 g/dLNOAL Healthcare IMMATURE GRANULOCYTES ABS AUTO0.02NOMS HealthcareImmature granulocytes/100 WBC (Bld)0.3 %0.0 - 0.5 %NOMS HealthcareInterpretation and review of laboratory resultsAbnormalNOAL HealthcareLYMPHOCYTES ABSOLUTE AUTO1.8[facility] Healthcare Lymphocytes/100 WBC (Bld)22.3 %20.5 - 60.0 %NOMS [facility] HospitalMCH (RBC) [Entitic mass]31.4 pg26.7 - 34.0 pgNOAL HealthcareMCHC (RBC) [Mass/Vol]32.8 g/dL29.9 - 35.2 g/dLNOAL HealthcareMCV (RBC) [Entitic vol]95.8 fL81.0 - 99.0 fLNOAL HealthcareMONOCYTES ABSOLUTE AUTO0.5NOMS HealthcareMonocytes/100 WBC (Bld)6.3 % 1.7 - 12.0 %NOMS HealthcareNEUTROPHILS ABSOLUTE AUTO5.6[facility] Neutrophils/100 WBC (Bld)70.2 %43.0 - 75.0 %NOMS HealthcarePlatelet mean volume (Bld) [Entitic vol]11.6 fL9.5 - 13.5 fLNOAL HealthcareTBH EO #0[facility] TBH [id number] HealthcareTB RBC3.09LowNOMS HealthcareTBH WBC7.9[facility] CLINISYNCNOAL HealthcareGLUCOSE TOLERANCE 3 HOURon 57-80-3771SHIUITJ TOLERANCE 3 HOURmg/dLNOAL HealthcareComment on above:GLU FAST 90 (<95) Col: 05/08/24 0806 GLU 1HR 159 (<180) Col: 05/08/24 0913 GLU 2HR 142 (<155) Col: 05/08/24 1013 GLU 3HR 117 (<140) Col: 05/08/24 1113 CLINISYNCNOAL HealthcareUltrasound - OfficeOrdered By: Rachelle Arredondo on 99-46-3777Mmhoossev Study observation (narrative)[facility] Urinalysis macro (dipstick) panel (U)on 62-07-8195Qcyufjlzv, UANegativeNegative - 4(70) +++ mg/dLNOMS HealthcareBlood, UANegativeNegative - 50 Enrrique/mcLNOAL HealthcareClarity, UAClearNOAL HealthcareColor, UAYellowNOAL HealthcareGlucose, UANegativeNegative - 2000(110) ++++ mg/dLNOAL HealthcareInterpretation and review of laboratory resultsAbnormalNOAL HealthcareKetones, UAPositiveNegative - 160(16) ++++ mg/dLNOAL HealthcareLeukocytes, UANegativeNegative - 500+++ Cam/mcL NOMS HealthcareNitrite, UANegativeNegative - PositiveNOAL HealthcarepH, UA6.55 - 9NOMS HealthcareProtein, UANegativeNegative - 1999(20) ++++ mg/dLNOMS Healthcare Spec Grav, UA1.031 - 1.03NOMS HealthcareUrobilinogen, UA1.00.2 - 12 mg/dLNOMS HealthcareNOMS HealthcareUS OB LIMITED 1+ FETUSESon 68-32-7969ZZ OB LIMITED 1+ FETUSESEXAM: US OB LIMITED 1+ FETUSES HISTORY: Follow [...] II, MD, PHD at 22-Apr-2024 09:07:11 AM [facility] TeleradiologyNormalNot AvailableComment on above:Order Comment: US OB INCOMPLETE ANATOMY Estimated Date of Delivery: 08/11/24 Gestational Age as of 03/25/2024: 58q2oLKJ AND AUTO DIFFon 74-62-3415KYLDWMQI BASOPHIL0.0 X10E9/LNormal0.0-0.2ProMedica [facility] Va Medical CenterComment on above: Performed By: #### EDWIN EID, 2275-05, 2131-10, 75625-6 ####[facility] ([id number])[address] [place] [address], [address] [place] [address]#### THMET ####[facility] ([id number])[address] [place], [place] [address], ABSOLUTE NEUTROPHIL5.2 X10E9/LNormal1.5-6.6ProMedica [facility] Va Medical CenterComment on above:Performed By: #### CBCMagen, FEPR, 2275-05, 2131-10, 10215-2 ####[facility] ([id number])[address] [facility], [address] [place] [address]#### THMET ####[facility] ([id number])5700 [facility], Basophils/100 WBC (Bld)0.4 %NormalProMedica Memorial HospitalComment on above: Performed By: #### CBCA, FEPR, 2275-05, 2131-10, 87397-9 ####[facility] ([id number])[address] [facility], [address] [place] [address]#### THMET ####[facility] ([id number])5700 [facility], Eosinophils (Bld) [#/Vol]0.0 10*3/uLNormal0.0-0.4[facility] Comment on above:Performed By: #### CBCA, FEPR, 2275-05, 2131-10, 76534-4 ####[facility] ([id number])0 [facility], [address] [place] [address]#### THMET ####[facility] ([id number])5700 [facility],Eosinophils/100 WBC (Bld)0.6 %[facility] Comment on above:Performed By: #### CBCA, FEPR, 2275-05, 2131-10, 67959-8 ####[facility] ([id number])[address] [facility], [address] [place] [address]#### THMET ####[facility] ([id number])5700 [facility],Erythrocyte distribution width (RBC) [Ratio]14.6 %Tivjfl47.5-15.0 ProMed[facility] Memorial HospitalComment on above:Performed By: #### CBCA, FEPR, 2275-05, 2131-10, 52727-6 ####[facility] ([id number])[address] [address], [address] [place] [address]#### THMET ####[facility] ([id number])5700 [facility],Hematocrit (Bld) [Volume fraction]32.4 % Viy76-89ForWwotoe Stout HospitalComment on above:Performed By: #### CBCA, FEPR, 2275-05, 2131-10, 73357-0 ####[facility] ([id number])[address] [place] [address], [address] [place] [address]#### THMET ####[facility] ([id number])5700 [facility],Hemoglobin (Bld) [Mass/Vol]10.7 g/dLLow 11.7-15.5ProMedLakeHealth [facility] HospitalComment on above:Performed By: #### CBCA, FEPR, 2275-05, 2131-10, 41424-9 ####[facility] ([id number])[address] [place] [address]#### THMET ####[facility] ([id number])5700 [facility],Lymphocytes (Bld) [#/Vol]1.9 10*3/uL Normal1.0-3.5PSelect Medical OhioHealth Rehabilitation Hospital - Dublin HospitalComment on above:Performed By: #### CBCA, FEPR, 2275-05, 2131-10, 40108-3 ####[facility] ([id number])[address] [place] [address] [place] [address]#### THMET ####[facility] ([id number])5700 [facility],Lymphocytes/100 WBC (Bld)24.8 %Normal [facility] HospitalComment on above:Performed By: #### CBCA, FEPR, 2275-05, 2131-10, 21662-3 ####[facility] ([id number])[address] [place] [address], [address] [place] [address]#### THMET ####[facility] ([id number])5700 [facility],MCH (RBC) [Entitic mass]30.9 pgNormal 27-34ProOur Lady Of Mercy Hospital HospitalComment on above:Performed By: #### CBCA, FEPR, 2275-05, 2131-10, 97226-4 ####[facility] ([id number])[address] [place] [address], [address] [place] [address] 48990#### THMET ####[facility] ([id number])5700 [facility],MCHC (RBC) [Mass/Vol]33.0 g/oMGkawvm57-83 ProMGuernsey Memorial Hospital HospitalComment on above:Performed By: #### CBCA, FEPR, 2275-05, 2131-10, 72300-6 ####[facility] ([id number])[address] [place] [address], [address] [place] [address] 48961#### THMET ####[facility] ([id number])5700 [facility],MCV (RBC) [Entitic vol]94 xXWfyhuc51-692 ProMGuernsey Memorial Hospital HospitalComment on above:Performed By: #### CBCA, FEPR, 2275-05, 2131-10, 54706-7 ####[facility] ([id number])[address] [place] [address], [address] [place] [address]87#### THMET ####[facility] ([id number])5700 [facility],Monocytes (Bld) [#/Vol]0.5 10*3/uLNormal 0-0.9ProOur Lady Of Mercy Hospital HospitalComment on above:Performed By: #### CBCA, FEPR, 2275-05, 2131-10, 11897-8 ####[facility] ([id number])[address] [facility], [address] [place] [address]#### THMET ####[facility] ([id number])5700 [facility],Monocytes/100 WBC (Bld)6.5 %Normal [facility] HospitalComment on above:Performed By: #### CBCA, FEPR, 2275-05, 2131-10, 96222-9 ####[facility] ([id number])2130 [facility], [address] [place] [address] 115[address]#### THMET ####[facility] ([id number])5700 [facility],Neutrophils/100 WBC (Bld)67.7 %Normal [facility] Memorial HospitalComment on above:Performed By: #### CBCA, FEPR, 2275-05, 2131-10, 08851-3 ####[facility] ([id number])[address] [facility], [address] [place] [address] 38083#### THMET ####[facility] ([id number])5700 [facility],Platelet mean volume (Bld) [Entitic vol] 10.8 fLNormal7-12ProMedica [facility] Va Medical CenterComment on above:Performed By: #### CBCA, FEPR, 2275-05, 2131-10, 17711-2 ####[facility] ([id number])[address] [facility], [address] [place] [address] 914[address]#### THMET ####[facility] ([id number])5700 [facility],Platelets (Bld) [#/Vol]162 10*3/fMEdcdbe526-210EfwEpdxcf [facility] Va Medical CenterComment on above: Performed By: #### CBCA, FEPR, 2275-05, 2131-10, 65533-3 ####[facility] ([id number])[address] [place] [address], [address] [place] [address]#### THMET ####[facility] ([id number])5700 [facility],RBC COUNT3.46 X10E12/LLow3.80-5.20ProOhiohealth Southeastern Medical CenterComment on above: Performed By: #### CBCA, FEPR, 2275-05, 2131-10, 39124-1 ####[facility] ([id number])[address] [place] [address], [address] [place] [address]#### THMET ####[facility] ([id number])[address] [place] [address],WBC (Bld) [#/Vol]7.7 10*3/uLNormal4.0-11.0ProOhiohealth Southeastern Medical CenterComment on above: Performed By: #### CBCA, FEPR, 2275-, 2131-10, 08567-5 ####[facility] ([id number])[address] [place] [address] [place] [address]#### THMET ####[facility] ([id number])5700 [facility], FERRITINon 22-50-4856Xkkwmbdk [Mass/Vol]9 ng/sRMnj02-801CukAwevqaOhiohealth Southeastern Medical CenterComment on above:Performed By: #### CBCA, FEPR, 2275-4, 2131-10, 07085-4 ####[facility] ([id number])[address] [place] [address] [place] [address]#### THMET ####[facility] ([id number])[address] [place] [address],IRON PROFILEon 34-77-9987Dajy [Mass/Vol]78 ug/qIQrgpip67-134 [facility] HospitalComment on above:Performed By: #### CBCA, FEPR, 2276-4, 2-9, 77001-5 ####[facility] ([id number])2130 [facility], [address] [place] [address] 83496#### THMET ####[facility] ([id number])5700 [facility],IRON JRAOASQ005 ug/dEIjmb635-824UipKufbjg [place] HospitalComment on above:Performed By: #### CBCA, FEPR, 2276-4, 2-9, 00932-6 ####[facility] ([id number])2130 [facility], [address] [place] [address] 33796#### THMET ####[facility] ([id number])5700 [facility],IRON YOVGZIHADX08 % GUNZFDAQNOWjpwnc81-20VrlAzyntb [facility] HospitalComcorewell health [facility] hospital on above:Performed By: #### CBCA, FEPR, 6-4, 2-9, 00185-8 ####[facility] ([id number])2130 [facility], [address] [place] [address] 89714#### THMET ####[facility] ([id number])5700 [facility],THIOPURINE METABOLITESon METHYLMERCAPTOPRNE<475Normal < or = 5700ProOhiohealth Southeastern Medical CenterComcorewell health pennock hospital on above:Result Comment: NOTEResult not quantifiable; below the limit of quantitation.Decreased risk of hepat otoxicity. ADDITIONAL INFORMATION Testing performed by [employer]-Tandem MassSpectrometry (LC-MS/MS)This test was developed and its performance characteristicsdetermined by [facility] in a manner consistent with CLIArequirements. This test has not been cleared or approved bythe U.S. Food and Drug Administration.Test Performed by:[facility] [place] [address]Grt Director: Celi Fernandez Ph.D.; CLIA# [id number] By: #### RAGINI, FEPR, 6-4, 2131-10, 30295-9 ####[facility] ([id number])[address] [facility], [address] [place] [address] 46[address]#### THMET ####[facility] ([id number])5700 [facility],6 ILEEAKBEHZN077 pmol/8x10(8)VUBKvp708 - 450ProOhiohealth Southeastern Medical CenterComment on above:Result Comment: NOTEDecreased possibility of response; suboptimal dosing ornoncompliance.Performed By: #### RAGINI, FEPR, 6-4, 2131-10, 65380-0 ####[facility] ([id number])[address] [facility] [address] [place] [address] 06704#### THMET ####[facility] ([id number])5700 [facility],VITAMIN B12on 55-23-7146Kbseuyorr (Vitamin B12) [Mass/Vol]143 pg/oBScy448-211BjjRjtnvmFort Hamilton HospitalComment on above:Performed By: #### RAGINI, FEPR, 6-4, 9, 58636-9 ####[facility] ([id number])[address] [address]#### THMET ####[facility] ([id number])5700 [facility],Vitamin D+Metabolites [Mass/Vol]on 89-93-9936QLQICYO D 25 HYD TOT12.0 ng/iNRzk91-799LzfFufljbOhiohealth Southeastern Medical CenterComment on above:Result Comment: Vitamin D status 25 [place] Vitamin D Deficiency <20 ng/mLInsufficiency 20-29 ng/mLSufficiency 30-100 ng/mLToxicity >100 ng/mLNOTE: A pediatric reference range has not beenestablished by the fretted instruments inspector of this kit.The [place] [employer] recommendsa Vitamin D level of = or >20ng/mL in infantsand children.Performed By: #### CBCA, FEPR, 2276-4, 2132-9, 00902-7 ####[facility] ([id number])[address] [place] [address], [address] [place] [address]#### THMET ####[facility] ([id number])[address] [place] [address] Panel Informationon 28-63-3614Hzmxkbfio Study observation (narrative)NOMS HealthcareUS OB ANATOMYon 10-79-4218[place] [address] Ultrasound Report Signed Patient: JUAN LUIS STOREY MR#: [id number] : 1990 Acct:[id number] Age/Sex: 33 / F ADM Date: 03/24/24 Loc: US Attending Dr: Parish Valdez D.O. Ordering Physician: Parish Valdez D.O. Date of Service: 03/24/24 Procedure(s): US OB anatomy Accession Number(s): [id number] cc: Parish Valdez D.O.; Hilary Aviles NP The [address] [address] Patient Name: JUAN LUIS STOREY MRN: TBH:[id number] date: 1990 Sex: F Assigned Patient Location: US Current Patient Location: US Accession/Order Number: [id number] Exam Date: 03/24/2024 10:45 Report Date: 03/24/2024 [...] Signed By: 03/24/24 1139 DD/ 1136 TD/TT: Forest Science Professor:TBHRadiology, Radiologist, MD - 03/24/2024 [place] [address] Ultrasound Report Signed Patient: JUAN LUIS STOREY MR#: [id number] : 1990 Acct:[id number] Age/Sex: 33 / F ADM Date: 03/24/24 Loc: US Attending Dr: Parish Valdez D.O. Ordering Physician: Parish Valdez D.O. Date of Service: 03/24/24 Procedure(s): US OB anatomy Accession Number(s): [id number] cc: Parish Valdez D.O.; Hilary Aviles NP [place] [address] Patient Name: JUAN LUIS STOREY MRN: [id number] date: 1990 Sex: F Assigned Patient Location: US Current Patient Location: US Accession/Order Number: [id number] Exam Date: 03/24/2024 10:45 Report Date: 03/24/2024 [...] Signed By: 03/24/24 1139 DD/ 1136 TD/TT: Forest Science Professor: JESSICA Maria OB ANATOMYOrdered By: Radiologist Radiology on [id number] [employer] Work Phone: US OB CERVICAL LENGTHon [id number] [address] Ultrasound Report Signed Patient: JUAN LUIS STOREY MR#: [id number] : 1990 Acct:[id number] Age/Sex: 33 / F ADM Date: 03/24/24 Loc: US Attending Dr: Parish Valdez D.O. Ordering Physician: Parish Valdez D.O. Date of Service: 03/24/24 Procedure(s): US OB cervical length Accession Number(s): [id number] cc: Parish Valdez D.O.; Hilary Aviles NP [place] [address] Patient Name: JUAN LUIS STOREY MRN: [id number] date: 1990 Sex: F Assigned Patient Location: Current Patient Location: Accession/Order Number: [id number] Exam Date: 03/24/2024 10:45 Report Date: 03/24/2024 [...] Signed By: 03/24/24 1138 DD/ 1136 TD/TT: Forest Science Professor:TBHRadiology, Radiologist, MD - 03/24/2024 [place] [address] Ultrasound Report Signed Patient: JUAN LUIS STOREY MR#: [id number] : 1990 Acct:[id number] Age/Sex: 33 / F ADM Date: 03/24/24 Loc: US Attending Dr: Parish Valdez D.O. Ordering Physician: Parish Valdez D.O. Date of Service: 03/24/24 Procedure(s): US OB cervical length Accession Number(s): [id number] cc: Parish Valdez D.O.; Hilary Aviles NP [facility] [place] [id number] Patient Name: JUAN LUIS STOREY MRN: [id number] date: 1990 Sex: F Assigned Patient Location: US Current Patient Location: US Accession/Order Number: [id number] Exam Date: 03/24/2024 10:45 Report Date: 03/24/2024 11:36 At the request of: PRAISH VALDEZ Procedure: US OB cervical length EXAMINATION: [...] Signed By: 03/24/24 1138 DD/ 1136 TD/TT: Forest Science Professor: JESSICA Maria OB CERVICAL LENGTHOrdered By: Radiologist Radiology on 08-04-9872WLMM [employer] Work Phone: Ultrasound - OfficeOrdered By: Rachelle Arredondo on 81-87-6860UjcZawmzg Health SystemUnlisted Lab Teston 69-31-0353TnpDxmowk Health SystemRECURRENT VAGINITIS (HTRX)on 17-99-5689CXTNTTOAD FSBQHSQ2JVJW Healthcare ATOPOBIUM VAGINAENot detectedNOMS HealthcareBVAB 2,3 (BACTERIAL VAGINOSIS ASSOCIATED BACTERIA 2, 3); MOBILUNCUS ZBH9DZUA HealthcareBVAB 2,3 (BACTERIAL VAGINOSIS ASSOCIATED BACTERIA 2, 3); MOBILUNCUS SPPNot detectedNOMS Healthcare WARD ALBICANS, PARAPSILOSIS, VBZAPEGQUV9IVLN HealthcareCANDIDA ALBICANS, PARAPSILOSIS, TROPICALISNot detectedNOMS HealthcareCANDIDA KMPFUMVK7OZYW HealthcareCANDIDA GLABRATANot detectedNOMS HealthcareCANDIDA KEGCDD1CITH HealthcareCANDIDA KRUSEINot detectedNOMS HealthcareCHLAMYDIA HLHISLILSXB3ZGQQ HealthcareCHLAMYDIA TRACHOMATISNot detectedNOMS HealthcareGARDNERELLA VAGINALIS0 NOMS HealthcareGARDNERELLA VAGINALISNot detectedNOMS HealthcareMEGASPHAERA (TYPES 1, 2)0NOMS HealthcareMEGASPHAERA (TYPES 1, 2)Not detectedNOMS Healthcare MYCOPLASMA AVHDFFRDDJ8UGWG HealthcareMYCOPLASMA GENITALIUMNot detectedNOMS HealthcareNEISSERIA VZLUOEGZNOA2FUUQ HealthcareNEISSERIA GONORRHOEAENot detected NOMS HealthcareTRICHOMONAS IEEBJUPTV7FYRU HealthcareTRICHOMONAS VAGINALISNot detectedNOMS HealthcareNOMS HealthcareUS OB CERVICAL LENGTHon 41-49-5970[place] [address] Ultrasound Report Signed Patient: JUAN LUIS STOREY MR#: [id number] : 1990 Acct:[id number] Age/Sex: 33 / F ADM Date: 03/11/24 Loc: US Attending Dr: Parish Valdez D.O. Ordering Physician: Parish Valdez D.O. Date of Service: 03/11/24 Procedure(s): US OB cervical length Accession Number(s): [id number] cc: Parish aVldez D.O.; Hilary Aviles NP [place] [id number] Patient Name: JUAN LUIS STOREY MRN: [id number] date: 1990 Sex: F Assigned Patient Location: US Current Patient Location: US Accession/Order Number: [id number] Exam Date: 03/11/2024 10:15 Report Date: 03/11/2024 [...] Signed By: 03/11/24 1056 DD/ 1053 TD/TT: Forest Science Professor:ODELLHRadiology, Radiologist, MD - 03/11/2024 [place] [address] Ultrasound Report Signed Patient: JUAN LUIS STOREY MR#: [id number] : 1990 Acct:[id number] Age/Sex: 33 / F ADM Date: 03/11/24 Loc: US Attending Dr: Parish Valdez D.O. Ordering Physician: Parish Valdez D.O. Date of Service: 03/11/24 Procedure(s): US OB cervical length Accession Number(s): [id number] cc: Parish Valdez D.O.; Hilary Aviles NP [facility] [place] [address] Patient Name: JUAN LUIS STOREY MRN: [facility]:[id number] date: 1990 Sex: F Assigned Patient Location: US Current Patient Location: US Accession/Order Number: [id number] Exam Date: 03/11/2024 10:15 Report Date: 03/11/2024 [...] Signed By: 03/11/24 1056 DD/ 1053 TD/TT: Forest Science Professor: [facility] HealthcareRadiology Study observation (narrative)NOM HealthcareUS OB CERVICAL LENGTHOrdered By: Radiologist Radiology on 10-92-9791HWEGRusk Rehabilitation Center Work Phone: Urinalysis macro (dipstick) panel (U)on 02-18-2024 Bilirubin, UANegativeNegative - 4(70) +++ mg/dLNOMS HealthcareBlood, UAPositive Negative - 50 Enrrique/mcLNOMS HealthcareComment on above:traceClarity, UAClearNOMS HealthcareColor, UAYellowNOMS HealthcareGlucose, UANegativeNegative - 2000(110) ++++ mg/dLNOMS HealthcareInterpretation and review of laboratory resultsAbnormal [facility] HealthcareKetones, UAPositiveNegative - 160(16) ++++ mg/dLNOMS Healthcare Comment on above:traceLeukocytes, UATraceNegative - 500+++ Cam/mcLNOMS HealthcareNitrite, UANegativeNegative - PositiveNOMS HealthcarepH, UA75 - 9NOMS HealthcareProtein, UAPositiveNegative - 2000(20) ++++ mg/dLNOMS Healthcare Comment on above:30Spec Grav, UA1.031 - 1.03NOEastern Missouri State HospitalUrobilinogen, UA1.0 0.2 - 12 mg/dLUNC Health Blue Ridge - MorgantonALL CBC WITH AUTO DIFFon 02-14-2024 BASOPHILS ABSOLUTE ZFKZ0UNPVRusk Rehabilitation CenterBasophils/100 WBC (Bld)0.2 %0.2 - 2.0 % [facility] CenterEosinophils/100 WBC (Bld)0.9 %0.9 - 7.0 %[facility] Erythrocyte distribution width (RBC) [Ratio]12.5 %11.0 - 15.0 %[facility] Hematocrit (Bld) [Volume fraction]35.3 %Low36.0 - 48.0 %[facility] Hemoglobin (Bld) [Mass/Vol]11.8 g/dLLow12.0 - 16.0 g/dLRusk Rehabilitation CenterIMMATURE GRANULOCYTES ABS AUTO0.03NOEastern Missouri State HospitalImmature granulocytes/100 WBC (Bld)0.4 % 0.0 - 0.5 %[facility] CenterInterpretation and review of laboratory results AbnormalRusk Rehabilitation CenterLYMPHOCYTES ABSOLUTE AUTO2.4NOEastern Missouri State Hospital Lymphocytes/100 WBC (Bld)29.2 %20.5 - 60.0 %[facility] ServicesH (RBC) [Entitic mass]32 pg26.7 - 34.0 pgSaint Francis Hospital & Health ServicesHC (RBC) [Mass/Vol]33.4 g/dL29.9 - 35.2 g/dLSaint Francis Hospital & Health ServicesV (RBC) [Entitic vol]95.7 fL81.0 - 99.0 fLRusk Rehabilitation Center MONOCYTES ABSOLUTE AUTO0.5R[facility] Rehabilitation CenterMonocytes/100 WBC (Bld)6.5 %1.7 - 12.0 %[facility] CenterNEUTROPHILS ABSOLUTE AUTO5.1NOMS [facility] HospitalNeutrophils/100 WBC (Bld)62.8 %43.0 - 75.0 %[facility] Rehabilitation CenterPlatelet mean volume (Bld) [Entitic vol] 12 fL9.5 - 13.5 fLPershing Memorial Hospital EO #0.1NOMS [facility] Community HospitalTB LMK330JNXWEllis Fischel Cancer Center RBC3.69LowNOEllis Fischel Cancer Center WBC8.2NOMS [facility] Community HospitalCLINISYNCNo Panel Informationon 46-52-2666HTHYRusk Rehabilitation CenterRubella IGG immune statuson 32-47-6203Cpbmhaf immune IgGimmuneProMetroHealth Cleveland Heights Medical Centeryphilis Total(Unknown Syphilis Status)Ordered By: Rachelle Arredondo on 23-64-6187MhqpewihJqa-Reactive [facility] Medical CenterBASIC METABOLIC PANLon 62-71-8937Apdlm gap [Moles/Vol]9 mmol/LNormal5-15ProOur Lady Of Mercy Hospital HospitalComment on above:Performed By: #### ILEANA HERNANDEZ, 1988-06, LIVR, 2131-10, 14968-7, 00389-9 ####[facility] ([id number])[address] [place] [address], [address] [place] [address]#### THMET ####[facility] ([id number])[address] [facility] Regional HospitalSylvkettering health springfield,Calcium [Mass/Vol]8.6 mg/dLNormal8.5-10.5PSelect Medical OhioHealth Rehabilitation Hospital - Dublin HospitalComment on above: Performed By: #### ILEANA HERNANDEZ, 1988-06, LIVR, 2131-10, 35608-7, 41268-0 ####[facility] ([id number])[address] [place] [address], [address] [place] [address]#### THMET ####[facility] ([id number])[address] StreetS[address], Chloride [Moles/Vol]104 mmol/BGfsibj55-940SsbNmhlfv [place] HospitalComment on above:Performed By: #### ILEANA HERNANDEZ, 1988-06, LIVR, 2131-10, 81973-5, 85893-9 ####[facility] ([id number])[address] [place] [address], [address] [place] [address]#### THMET ####[facility] ([id number])[address] StreetSylvania,CO2 [Moles/Vol]21 mmol/INho99-87PieHezevt [place] HospitalComment on above:Performed By: #### ILEANA HERNANDEZ, 1988-06, LIVR, 2131-10, 30316-6, 10419-3 ####[facility] ([id number])[address] [place] [address]#### THMET ####[facility] ([id number])[address] [facility],Creatinine [Mass/Vol]0.56 mg/dLNormal0.40-1.00ProMedica Memorial HospitalComment on above:Result Comment: METHOD TRACEABLE TO IDMS STANDARD Performed By: #### ILEANA HERNANDEZ, 1988-06, LIVR, 2131-10, 18423-3, 86511-2 ####[facility] ([id number])[address] [place] [place] [address]#### THMET ####[facility] ([id number])[address] [place] [address], eGFR (CKD-EPI) NON-RACE DEPENDENT>90Normal>59ProOhiohealth Southeastern Medical CenterComcorewell health pennock hospital on above:Result Comment: Reported eGFR is based on theCKD-EPI 2020 equation that doesnot use a race coefficient.Performed By: #### ILEANA HERNANDEZ, 1988-06, LIVR, , 75107-8, 95169-3 ####[facility] ([id number])[address] [place], [place] [address]#### THMET ####[facility] ( [id number])[address] [place] [address],Glucose [Mass/Vol]73 mg/lJUiwswt93-62 ProMedica Memorial HospitalComment on above:Performed By: #### MARY, ILEANA, 1988-06, LIVR, 2131-10, 59977-3, 44224-4 ####[facility] ([id number])[address] [place] [address]#### THMET ####[facility] ([id number])[address] [facility],Potassium [Moles/Vol]3.8 mmol/L Normal3.5-5.0ProOhiohealth Southeastern Medical CenterComment on above:Performed By: #### MARY, ILEANA, 1988-06, LIVR, 2131-10, 56678-7, 86930-7 ####[facility] ([id number])[address] [place] [place] [address]#### THMET ####[facility] ([id number])57[address] [facility],Sodium [Moles/Vol]134 mmol/PVmgesq250-790FvvCygpjt [place] HospitalComment on above:Performed By: #### ILEANA HERNANDEZ, 1988-06, LIVR, 2131-10, 78423-6, 01362-5 ####[facility] ([id number])[address] [place] [place] [address]#### THMET ####[facility] ([id number])[address] [place] [address],Urea nitrogen [Mass/Vol]6 mg/dLNormal5-23ProOhiohealth Southeastern Medical CenterComment on above: Performed By: #### ILEANA HERNANDEZ, 1988-06, LIVR, 2131-10, 22459-4, 92011-0 ####[facility] ([id number])[address] [place] [place] [address]#### THMET ####[facility] ([id number])[address] [place] [address], COMPLETE BLOOD COUNTon 06-04-8584Tqxrygqizek distribution width (RBC) [Ratio] 13.7 %Hrwypd39.5-15.0ProMedica Memorial HospitalComment on above:Performed By: #### MARY, ILEANA, 1988-06, LIVR, 2131-10, 51262-2, 07869-5 ####[facility] ([id number])[address] [place] [address]#### THMET ####[facility] ([id number])[address] [facility], Hematocrit (Bld) [Volume fraction]38.5 %Qlwbqc17-56VzeEeacgtProMedica Memorial Hospital Comment on above:Performed By: #### CBC, BMP, 1988-06, LIVR, 2131-10, 34158-5, 11280-4 ####[facility] ([id number])[address] [place] [address]#### THMET ####[facility] ([id number])[address] [facility],Hemoglobin (Bld) [Mass/Vol]12.8 g/bAEahpfu53.7-15.5 Pro[facility] Memorial HospitalComment on above:Performed By: #### CBC, BMP, 1988-06, LIVR, 2131-10, 77735-5, 90877-8 ####[facility] ([id number])[address] [place] [address]#### THMET ####[facility] ([id number])57[address] [facility],MCH (RBC) [Entitic mass]32.5 pg Lstari51-59LpxZjijucProMedica Memorial HospitalComment on above:Performed By: #### CBC, BMP, 1988-06, LIVR, 2131-10, 12356-7, 11116-7 ####[facility] ([id number])[address] [place] [address]#### THMET ####[facility] ([id number])57[address] [facility],MCHC (RBC) [Mass/Vol] 33.3 g/qDMxyfzj14-32ThbAsamwj [place] HospitalComment on above:Performed By: #### CBC, BMP, 1988-06, LIVR, 2131-10, 75180-6, 90050-4 ####[facility] ([id number])[address] [facility], [address] [place] [address]#### THMET ####[facility] ([id number])[address] [facility],MCV (RBC) [Entitic vol]98 eJYiatvv75-629SweLstabc [place] HospitalComment on above: Performed By: #### CBC, BMP, 1988-06, LIVR, 2131-10, 39341-2, 89428-4 ####[facility] ([id number])[address] [facility], [address] [place] [address]#### THMET ####[facility] ([id number])57[address] [facility], Platelet mean volume (Bld) [Entitic vol]11.2 fLNormal7-12ProMedSumma HealthComment on above:Performed By: #### CBC, BMP, 1988-06, LIVR, 2131-10, 86546-8, 28048-0 ####[facility] ([id number])[address] [place] [address], [address] [place], [place] [address]#### THMET ####[facility] ( [id number])57[address] [facility],Platelets (Bld) [#/Vol]108 10*3/uLLow 150-450ProOhiohealth Southeastern Medical CenterComment on above:Performed By: #### CBC, BMP, 1988-06, LIVR, 2131-10, 49962-7, 86778-3 ####[facility] ([id number])[address] [facility], [address] [place] [address]#### THMET ####[facility] ([id number])5700 [facility],RBC COUNT3.95 X10E12/LNormal3.80-5.20ProOhiohealth Southeastern Medical CenterComment on above:Performed By: #### CBC, BMP, 1988-06, LIVR, 2131-10, 19023-8, 38575-9 ####[facility] ([id number])[address], [address] [place] [address]#### THMET ####[facility] ([id number])57[address] [facility],WBC (Bld) [#/Vol]7.2 10*3/uLNormal4.0-11.0ProOhiohealth Southeastern Medical CenterComment on above: Performed By: #### CBC, BMP, 1988-06, LIVR, 2131-10, 94658-2, 32043-1 ####[facility] ([id number])[address] [place] [address]#### THMET ####[facility] ([id number])[address] [place] [address], CRP [Mass/Vol]on 4C REACTIVE PROTEIN0.7 mg/dLNormal0.000-0.744PFort Hamilton HospitalComment on above:Performed By: #### CBC, BMP, 1988-06, LIVR, 2131-10, 64280-7, 56017-5 ####[facility] ([id number])[address] [place] [address]#### THMET ####[facility] ([id number])[address] [place] [address],ESR Photometric method (Bld) [Velocity] on 43-58-0503KJP, ERYTHROCYTE SEDIMENTATION RATE1 mm/hNormal0-20ProOhiohealth Southeastern Medical CenterComment on above:Performed By: #### CBC, BMP, 1988-06, LIVR, 2131-10, 74932-1, 25280-6 ####[facility] ([id number])[address] [address]#### THMET ####[facility] ( [id number])[address],LIVER PANELon 32-78-4646Pzeuojl [Mass/Vol] 3.7 g/dLNormal3.2-5.3PSelect Medical OhioHealth Rehabilitation Hospital - Dublin HospitalComment on above:Performed By: #### MARY, ILEANA, 1988-06, LIVR, 2131-10, 52537-5, 19200-5 ####[facility] ([id number])[address] [place] [address], [place] [address]#### THMET ####[facility] ([id number])57[address] [facility] Hospitalrochelle,ALP [Catalytic activity/Vol]29 U/BApw79-864NqaEswmxaOhiohealth Southeastern Medical CenterComment on above:Performed By: #### MARY, ILEANA, 1988-06, LIVR, 2131-10, 55930-9, 15001-2 ####[facility] ([id number])[address] [place] [address], [place] [address]#### THMET ####[facility] ([id number])57[address] [facility] Hospitalrochelle,ALT [Catalytic activity/Vol]8 U/LNormal0-31PFort Hamilton HospitalComment on above:Performed By: #### MARY, ILEANA, 1988-06, LIVR, 2131-10, 78634-2, 57513-3 ####[facility] ([id number])[address] [place] [address], [address] [place] [address]#### THMET ####[facility] ( [id number])57[address] [facility],AST [Catalytic activity/Vol]19 U/LNormal 0-41ProOhiohealth Southeastern Medical CenterComment on above:Performed By: #### MARY, BMP, , LIVR, 2131-10, 25577-5, 09815-5 ####[facility] ([id number])[address] [place] [address] [place] [address]#### THMET ####[facility] ([id number])57[address] [facility],Bilirubin [Mass/Vol] 0.4 mg/dLNormal0.3-1.2ProMedSumma HealthComment on above:Performed By: #### ILEANA HERNANDEZ, 1988-06, LIVR, 2131-10, 08041-9, 42318-8 ####[facility] ([id number])0 [facility], [address] [place] [address]#### THMET ####[facility] ([id number])57[address] [facility], Bilirubin.direct [Mass/Vol]0.1 mg/dLNormal0.0-0.4[facility] Comment on above:Performed By: #### ILEANA HERNANDEZ, 1988-06, LIVR, 2131-10, 80576-7, 47765-8 ####[facility] ([id number])[address] [place] [address] [place] [address]#### THMET ####[facility] ([id number])[address] [place] [address],Protein [Mass/Vol]7.0 g/dLNormal6.0-8.0ProOhiohealth Southeastern Medical CenterComment on above:Performed By: #### ILEANA HERNANDEZ, 1988-06, LIVR, 2131-10, 66382-7, 13398-6 ####[facility] ([id number])[address] [place] [address], [address] [place] [address]#### THMET ####[facility] ( [id number])[address] [place] [address],THIOPURINE METABOLITESon THIOGUANINENot performedNormalProOhiohealth Southeastern Medical CenterComment on above:Result Comment: NOTEThiopurine Metabolites, B was cancelled on 02/02/2024 at16:27; Quantity not sufficient to test.Test Performed by:[facility] [place], [place] [address]Jij Director: Celi Fernandez Ph.D.; CLIA# [id number] By: #### MARY, ILEANA, 1988-06, LIVR, 2131-10, 73785-3, 09946-9 ####[facility] ([id number])[address] [place] [address]#### THMET ####[facility] ([id number])[address] [place] [address],VITAMIN B12on 01-26-2024 Cobalamin (Vitamin B12) [Mass/Vol]239 pg/gRRulrqo618-705EimWjfani [place] HospitalComment on above:Performed By: #### MARY, ILEANA, 1988-06, LIVR, 2131-10, 03264-2, 53415-4 ####[facility] ([id number])[address] [place] [address], [address] [address]#### THMET ####[facility] ( [id number])[address] [place] [address],Vitamin D+Metabolites [Mass/Vol]on 82-73-6791CBBWKYU D 25 HYD TOT10.1 ng/vLJwz13-810ZcbVyvvtzProMedica Memorial Hospital Comment on above:Result Comment: Vitamin D status 25 [place] Vitamin D Deficiency <20 ng/mLInsufficiency 20-29 ng/mLSufficiency 30-100 ng/mLToxicity >100 ng/mLNOTE: A pediatric reference range has not beenestablished by the fretted instruments inspector of this kit.The [place] [employer] Pediatric[employer] recommendsa Vitamin D level of = or >20ng/mL in infantsand children.Performed By: #### MARY, BMP, 1988-06, LIVR, 2131-10, 32319-3, 15771-1 ####[facility] ([id number])[address] [facility], [address] [place] [address]#### THMET ####[facility] ([id number])57[address] [facility] HospitalSylvania,HCG ( test) Ql (U)on 77-12-0245Hqmpcfuquylyxc and review of laboratory resultsAbnormalNOMS HealthcarePreg Test, UrPositive NegativeNOMS HealthcareNOMS HealthcareUS OB TRANSVAGINALon 94-46-2318Tk[address] [address] Ultrasound Report Signed Patient: JUAN LUIS STOREY MR#: [id number] : 1990 Acct:[id number] Age/Sex: 33 / F ADM Date: 01/23/24 Loc: NOMS Attending Dr: Parish Valdez D.O. Ordering Physician: Parish Valdez D.O. Date of Service: 01/23/24 Procedure(s): US OB transvaginal Accession Number(s): [id number] cc: Parish Valdez D.O.; Hilary Aviles NP [address] [address] Patient Name: JUAN LUIS STOREY MRN: [id number] date: 1990 Sex: F Assigned Patient Location: [facility] Current Patient Location: [facility] Accession/Order Number: [id number] Exam Date: 01/23/2024 09:45 Report Date: 01/23/2024 10:28 At the request of: PARISH VALDEZ Procedure: US OB transvaginal EXAMINATION: US [...] weeks 0 days Electronically authenticated by: SESAR PHAN Date: 01/23/2024 10:28 Dictated By: Sesar Phan M.D. Signed By: 01/23/24 1031 DD/ 1028 TD/TT: Forest Science Professor:TBHRadiology, Radiologist, MD - 01/23/2024 [place] [address] Ultrasound Report Signed Patient: JUAN LUIS STOREY MR#: [id number] : 1990 Acct:[id number] Age/Sex: 33 / F ADM Date: 01/23/24 Loc: NOMS Attending Dr: Parish Valdez D.O. Ordering Physician: Parish Valdez D.O. Date of Service: 01/23/24 Procedure(s): US OB transvaginal Accession Number(s): [id number] cc: Parish Valdez D.O.; Hilary Aviles NP [facility] [place] [address] Patient Name: JUAN LUIS STOREY MRN: [id number] date: 1990 Sex: F Assigned Patient Location: [facility] Current Patient Location: [facility] Accession/Order Number: [id number] Exam Date: 01/23/2024 09:45 Report Date: 01/23/2024 10:28 At the request of: PARISH VALDEZ Procedure: US OB transvaginal EXAMINATION: US [...] weeks 0 days Electronically authenticated by: SESAR PHAN Date: 01/23/2024 10:28 Dictated By: Sesar Phan M.D. Signed By: 01/23/24 1031 DD/ 1028 TD/TT: Forest Science Professor: [facility] HealthcareRadiology Study observation (narrative)[facility] HealthcareUS OB TRANSVAGINALOrdered By: Radiologist Radiology on 81-70-3461HZAJ Healthcare Work Phone: Urinalysis macro (dipstick) panel (U)on 01-23-2024 Bilirubin, UANegativeNegative - 4(70) +++ mg/dLNOMS HealthcareBlood, UAPositive Negative - 50 Enrrique/mcLNOMS HealthcareClarity, UAClearNOMS HealthcareColor, UA YellowNOMS HealthcareGlucose, UANegativeNegative - 2000(110) ++++ mg/dLNOMS HealthcareInterpretation and review of laboratory resultsAbnormalNOMS Healthcare Ketones, UAPositiveNegative - 160(16) ++++ mg/dLNOMS HealthcareLeukocytes, UA NegativeNegative - 500+++ Cam/mcLNOMS HealthcareNitrite, UANegativeNegative - PositiveNOMS HealthcarepH, UA75 - 9NOMS HealthcareProtein, UATraceNegative - 2000(20) ++++ mg/dLNOMS HealthcareSpec Grav, UA1.0151 - 1.03NOMS Healthcare Urobilinogen, UA1.00.2 - 12 mg/dLNOMS HealthcareNOMS HealthcareNUR FECAL OCCULT BLDon 38-18-5295Fwlfzoopsa.gastrointestinal Ql (Stl)NegativeNormalNEGProMedica Doctors Medical CenterComment on above:Performed By: #### 2335-8 #### [facility] ([id number]) [address] [place] [address], FIRST FLOOR [place], [place] [address]IRF ACOG PANEL 2: 30 to 65on 05-07-2022..NormalThe [facility]ont County HospitalComment on above:Result Comment: Performed at: WBPerformed By: #### [id number] #### [facility] [address] [place] [address] Dr. Bisi BarkerAge Gdln ACOG Pvmmwns52-89FxgzljBceKing's Daughters Medical Center OhioComcorewell health [facility] on above:Performed By: #### [id number] #### [facility] [address] [place] [address] Dr. Bisi BarkerDIAGNOSIS:CommentMercy Health Defiance Hospital on above: Result Comment: NEGATIVE FOR INTRAEPITHELIAL LESION OR MALIGNANCY. Performed at: WBPerformed By: #### [id number] #### [facility] [address] [place] [address] Dr. Bisi BarkerHPV AptimaNegativeNormalNegativeThe [facility] on above:Result Comment: This nucleic acid amplification test detects fourteen high-risk HPV types (16,18,31,33,35,39,45,51,52,56,58,59,66,68) without differentiation. Performed at: =GPerformed By: #### [id number] #### [facility] [address] [place] [address] Dr. Bisi BarkerHPV Genotype ReflexCommentMercy Health Defiance Hospital on above:Result Comment: Criteria not met, HPV Genotype not performed. Performed at: WBPerformed By: #### [id number] #### [facility] [address] [place] [address] Dr. Bisi BarkerMethodology:CommentMercy Health Defiance Hospital on above: Result Comment: This liquid based ThinPrep(R) pap test was screened with the use of an image guided system. Performed at: WBPerformed By: #### [id number] #### [facility] [address] [place] [address] Dr. Bisi BarkerNote:CommentMercy Health Defiance Hospital on above:Result Comment: The Pap smear is a screening test designed to aid in the detection of premalignant and malignant conditions of the uterine cervix. It is not a diagnostic procedure and should not be used as the sole means of detecting cervical cancer. Both false-positive and false-negative reports do occur. . Performed at: WBPerformed By: #### [id number] #### [facility] [address] [address] [address] Bisi BarkerPerformed by:CommentNoUC [facility] on above: Result Comment: Mally Hamlin, Installation Superintendent (ASCP) Performed at: Performed By: #### [id number] #### [facility] [address] [address] [address] Bisi BarkerSpecimen adequacy:CommentMercy Health Defiance Hospital on above:Result Comment: Satisfactory for evaluation. Endocervical and/or squamous metaplastic cells (endocervical component) are present. Performed at: WBPerformed By: #### [id number] #### [facility] [address] [address] [address] Bisi BarkerCNCOcarolina [phone] TextNo[address] [address]Htcfz: [phone]: [address] [address]Whpbx: [phone]: [id number] [place], [place] [address]Nehbc: [phone]: To Free: [phone] [email or web address] Raza Roldan M.D., Jhon Mora M.D.Barry Camarena M.D.Samara Hernandez D.O..Bettie Henry M.D. FACROSaju A. Rajan, M.D.February 11, 2017[address] [address]Bonq Ms. Storey,You missed your scheduled appointment on Saturday February 11, 2017. Pleasecall our office to reschedule. If you need to cancel any futureappointments, please call to give us 24 hour notice so that we can offer yourappointment to another patient.Sincerely,Samara Canales M.D.[facility] [phone] Center (HEMTCL) --------JUAN LUIS STOREY ([id number]) 1990 FDate Time Provider Esxoezmcvu19/24/17 1:00 [address] [facility] During your visit today, we recorded the following information about you: Temperature Pulse Respiration Blood pressure 98.9 degrees 76/minute 18/minute 97/64Referring Provider: SAMARA HERNANDEZ [[id number]]Allergies As of Date: 12/03/2016(No Known Allergies)Date Reviewed: 12/03/2016Reviewed by: Kristi (Rn) JAD Partida - Fully AssessedPrimary Visit Diagnosis:Anemia, unspecified type [D64.9]Order(s):TREATMENT PARAMETER-NOT NEEDED [8299364] Order #: [id number]: 1 HEMONC NURSING COMMUNICATION [[id number]] Order #: [id number]: 1 STANDING HEMONC NURSING COMMUNICATION [[id number]] Order #: [id number]: 1 STANDING HEMONC NURSING COMMUNICATION [[id number]] Order #: [id number]: 1 STANDING HEMONC NURSING COMMUNICATION [[id number]] Order #: [id number]: 1 STANDING HEMONC NURSING COMMUNICATION [[id number]] Order #: [id number]: 1 STANDING HEMONC NURSING COMMUNICATION [9990214] Order #: [id number]: 1 STANDING [] iron sucrose 200 mg [...] 10 MG TABLET Take 10 mg by mouththree mariano* TRAZODONE 50 MG TABLET Take 50 mg by mouth as needed.Problem List As Of Date 12/03/2016 Noted Resolved Anemia [D64.9] INVALID FOR*Prescriptions ordered this encounter Disp Refills Start End IRON SUCROSE 200 MG IN 100 ML NS IVP* 12/03/2016 12/03/2016 Route: INTRAVENOUS SODIUM CHLORIDE 0.9% INTRAVENOUS SO* 12/03/2016 Cmt: Inform physician Route: INTRAVENOUS DIPHENHYDRAMINE 50 MG/ML INJECTION S* 12/03/2016 Route: INTRAVENOUS HYDROCORTISONE SODIUM SUCCINATE 100 * 12/03/2016 Route: INTRAVENOUS EPINEPHRINE 1 MG/ML (1 ML) INJECTION* 12/03/2016 Route: INTRAMUSCULAEncounter Number: [id number] Status:Closed by KRISTI PARTIDA on 12/03/16NoMercy HealthCNOVSPon [phone] (SP) Office (HEMACL) --------JUAN LUIS STOREY ([id number]) 1990 [facility] Time Provider Yapuxbyxqm99/10/17 11:00 AM SAMARA HERNANDEZ HEMBRENDA During your visit today, we recorded the following information about you: Temperature Pulse Respiration Blood pressure 97.8 degrees 78/minute 18/minute 96/61 Weight Height 59.6 kg 1.632 Clara Berger 11/19/2016 11:15 AM SignedPatient states feeling more fatigue.Samara Hernandez DO 11/23/2016 9:43 AM SignedPATIENT NAME: Juan Luis StoreyMRN: [id number] PHYSICIAN: IFTIKHAR RAZO[address] [place] [address] CARE PHYSICIAN: Iftikhar García ImmOTHER PHYSICIANS: CHIEF COMPLAINT: Anemia, unspecified type (primary encounter diagnosis)ASSESSMENT/PLAN:(D64.9) Anemia, unspecified type (primary encounter diagnosis)1. Anemia, secondary to iron deficiency secondary to chronic blood loss..Recurrent iron deficiencynormal vitamin B12 and folate levels.Seems to have very significant microcytosis and history of heavy periods.Suspect blood loss anemia secondary to heavy periods.May through June 2016 completed IV iron therapy 4 doses intravenously weekly.Second doserequired slowing the infusion rate secondary to GI [...] XL (WELLBUTRIN XL) 150 mg 24 hr tablet- hydrOXYzine HCl (ATARAX) 50 mg tablet Return in about 3 months (around 02/19/2017), or f/u 3 months. thats it.. HISTORY OF PRESENT ILLNESS: This is a 26year old -Cambodian femaleCBC from 05/22/16 reveals white blood cell [...] and even prior to that.Had history of ironinfusions in November 2012 and was in hospital for a monthprior to of her first child.Also needed iron infusions with her second kid in dec 2014.Works a [employer] service.June 04, 2016Eats a bag of ice per week basically. Otherwise she does not seem verysymptomatic from her anemia.July 30, 2016 not eating ice. She doesn't feel a lot different otherwise. Still a bittired. Less than previously. Periods settle down a bit. Has not seen yet, scheduled for sometime this month.After her second iron infusion she had pretty severe constipation abdominalbloating.November 19 017 add on visit for recurrent iron deficiency.Periods irregular. July through Oct. Very light fora few days, then veryheavy for a few days. Then back to light for a few days. No period dgtxbhawhsr33ra. Eating ice a litle bit. May be [...] Normal color, texture, turgor, no rashesor lesionsHEENT: significantheadaches, changes in hearing, changes in vision, nosebleeds. ENT: No scleral icterus. NECK: Supple, no thyromegaly, no JVD.: dysuria, frequency or incontinence. continued irregular periods. Seehist ory of present illness. LYMPH: No cervical, supraclavicular, axillary,inguinal adenopathy.RESP: dyspnea, cough, wheezing. LUNG: Clear to auscultation, no wheezing ralesor rhonchiCARD: chest pain, legswelling, palpitations. HEART: Regular. No murmurs,gallop, or rubs. No ectopy.GI: abdominal pain, nausea, vomiting, diarrhea, constipation, melena,hematochezia. ABDM: Soft. Non-tender. Non-distended.Bowel sounds normal.No masses. No hepatosplenomegaly.HEME: prolonged bleeding, bruising, adenopathy. EXT: No clubbing, cyanosisor edema.MUSC: joint pain or swelling. MUSC: No joint swelling, deformity, ortenderness.NEURO: syncope, seizures, peripheral numbness or tingling. BACK: Notenderness to palpation. No flank tenderness.MEDICATIONS:buPROPion XL (WELLBUTRIN XL) 150 mg 24 hr [...] I answered all questions satisfactorily..Mariano Hernandez D.O.Medical OncologistWheeling, OhioReferring Provider: SAMARA HERNANDEZ [[id number]]Allergies As of Date: 11/19/2016(No Known Allergies)Date Reviewed: [...] madhuri* CYCLOBENZAPRINE 10 MG TABLET Take 10 mgby mouth three mariano* TRAZODONE 50 MG TABLET Take 50 mg by mouth as needed.Medication notes this encounter BUPROPION XL 150 MG TAB >> Huong Berger 11/19/2016 11:15 AM >> WANG May 11:15 AM Received from: External Pharmacy HYDROXYZINE HCL 50 MG TABLET >> Huong Berger 11/19/2016 11:15 AM >> WANG MayNov 19, 2016 11:15 AM Received from: External PharmacyProblem List As Of Date 11/19/2016 Noted Resolved Anemia [D64.9] INVALID FOR*Visit Notes:>> Huong Berger FriNov 19, 2016 11:15 AM Status: SignedPatient states feeling more fatigue.Encounter Status:Closed by SAMARA HERNANDEZ DO on 11/23/16[facility] 11-19-2016 PROGRESSHNO ID: [id number]: Samara HernandezSerlynseye: (none)Author Type: PhysicianType: Progress NotesFiled: 11/23/2016 9:43 AMNote Text:PATIENT NAME: Juan Luis Richey RaleighMRN: [id number] PHYSICIAN: IFTIKHAR RAZO[address] [place] [address] CARE PHYSICIAN: Iftikhar RazoOTHER PHYSIC IANS:CHIEF COMPLAINT: Anemia, unspecified type (primary encounter diagnosis)ASSESSMENT/PLAN:(D64.9)Anemia, unspecified type (primary encounter diagnosis)1. Anemia, secondary to iron deficiency secondary to chronic blood loss..Recurrent iron deficiencynormal vitamin B12 and folate levels.Seems to aguilar ve very significant microcytosis and history of heavy periods.Suspect blood loss anemia secondary to heavy periods.May through June 2016 completed IV iron therapy 4 doses intravenouslyweekly. Seconddose required slowing the infusion rate secondary to GIcomplaints.Near resolution of pica symptoms,hemoglobin improved to 10.6. She seemsto still be [...] PRESENT ILLNESS: This is a 26year old -[place]od[place] femaleCBC from 05/22/16 reveals white blood cell [...] February. She follows withob, but hasnt seen themyet this year. Dr. Mooney. Does not tolerateoral iron well secondary to GI side effects including vomiting.Has had pretty severe anemia since she had her kids and even prior tothat. Had history of iron infusions in November 2012 and was in hospitalfor a month prior to of her first child.Also needed iron infusions with her second kid in dec 2014.Works a [employer] service.MayEats a bag of ice per week basically. Otherwise she does not seem verysymptomatic from her anemia.July 30, 2016 not eating ice. She doesn't feel a lot different otherwise. Still a bittired. Less than previously. Periods settle down a bit. Has not seenDr. Mooney yet, scheduled for sometime thismon.After her second iron infusion she had pretty [...] 131 lb 8 oz (59.6kg) BMI 22.40 kg/(m2).Bodysurface area is 1.64 meters squared. REVIEW OF [...] tingling. BACK: Notenderness to palpation. No flank tenderness.MEDICATIONS:buPROPion XL (WELLBUTRIN XL) 150 mg 24 hr [...] natural history, treated course, and prognosisof Anemia, unspec ified type (primary encounter diagnosis); my impressionas well as the rationale, logistics, risks, benefits, and alternatives tothe management options noted above; and my recommendations listed below.The patient Juan Luis Storey verbalized understanding and agreed withthese recommendations and plan. I answered all questions satisfactorily..Mariano Hernandez D.O.Medical OncologistFormerly [facility] [place], OhioNoalCMartin Memorial HospitalRemote CBCDIF (for [facility] use only)on 51-42-4610Zse Baso0.02 k/uLNormal<0.11CMartin Memorial HospitalAbs Mono0.40 k/uLNormal0.00-0.86[facility] CampusAbs Neut3.13 k/uLNormal1.45-7.50[facility] CampusBasophils/100 WBC Auto (Bld)0.4 % NormalTrinity Health System East CampusEosinophils0.05 10*3/uLNormal<0.46[facility] CampusEosinophils/100 leukocytes0.9 %NormalTr[facility] Health System [facility] Campus Erythrocyte distribution width Auto Ratio (RBC)13.5 %Egyeud53.5-15.0[facility] CampusErythrocytes (RBC)3.87 10*6/uLLow3.90-5.20[facility] CampusHematocrit (HCT)33.0 %Low36.0-46.0[facility] CampusHemoglobin mass conc (Bld)10.5 g/dLLow11.5-15.5CMartin Memorial HospitalLymphocytes1.70 10*3/uLNormal1.00-4.00[facility] CampusLymphocytes/100 ooxmgdrrmn34.1 % NormalTrinity Health System East CampusMCH27.1 kSKpmzga35.0-34.0[facility] Health SystemHC mass conc (RBC)31.8 g/wAVqtuam76.5-36.0[facility] MCV85.3 aOYesiue15.0-100.0[facility] CampusMonocytes/100 leukocytes7.5 %NormalTrinity Health System East CampusNeutrophils/100 WBC Auto (Bld)59.1 %Normal [facility] CampusPlatelet mean volume (PMV)11.0 fLNormal9.0-12.7 [facility] CampusPlatelets288 10*3/wBQxgdjo113-163OikvhufntTrinity Health System East CampusWBC (Leukocytes)5.30 10*3/uLNormal3.70-11.00[facility] Remote iSTAT BMP (for [facility] use only)on 96-26-3167Pmdpg gap11 mmol/LNormal0-15 [facility] CampusBUN (urea nitrogen)12 mg/dLNormal8-25[facility] CampusChloride105 mmol/KEkixco40-363BrnpspxebTrinity Health System East CampusCO224 mmol/L Bvlqqd57-96HonsvybplTrinity Health System East CampusCreatinine0.70 mg/dLNormal0.70-1.40 [facility] East CampuseGFR (non-black)mL/min/{1.73_m2}NormalSt. [facility] on above:Result Comment: eGFR (Estimated GFR) Units of measure: mL/min/1.73 meters squaredeGFR is derived from the reexpressed MDRD Study equation using the following parameters: serum creatinine, age, genderand race. The creatinine assay has been calibrated to be traceable to IDMS.An eGFR <60 mL/min/1.73m2 for >3 months is consistent with chronic kidney disease. Refer to KDOQI guidelines for clinical interpretation.In patients with unstable renal function, e.g. those with acute kidney injury, the eGFR may not accurately reflect actual GFR.Glucose mass conc79 mg/eQDmqkbb74-095AhlhxzbruTrinity Health System East CampusIonized Calcium, WB1.14 mmol/LNormal1.08-1.30[facility] Comment on above:Result Comment: Please note: This value represents ionized calcium not total calcium.Potassium molar conc4.0 mmol/LNormal3.5-5.0[facility] CampusSodium140 mmol/RGohixr305-294WtxkhuaabTrinity Health System East CampusFerritin on 48-01-2942Aujesmua76.8 ng/cGCjtkoz82.7-205.1CProMedica Toledo Hospital on above:Performed By: #### IRON, FERR ####[address] [phone] and TIBCon 43-07-4684Hllc01 ug/tPMyy54-675LpenvwwhvSt. Mary's [facility] on above:Performed By: #### IRON, FERR ####[address] [address] [place]xE[place], [place] [phone] ug/sOYjujtx498-336LcopylmclSt. [facility]'s [facility] on above:Performed By: #### IRON, FERR ####[address] [phone] Saturatn6 %Zkk59-78ZatwbtkocSt. [facility] on above:Performed By: #### IRON, FERR ####[address] [phone] CBCDIF (for C use only)on 32-70-9435Cyx Baso0.02 k/uLNormal0.00-0.10[facility] CampusAbs Mono0.42 k/uLNormal0.00-0.86[facility] CampusAbs Neut3.06 k/uLNormal1.45-7.50ClePremier Health Miami Valley HospitalBasophils/100 WBC Auto (Bld)0.3 % NormalTrinity Health System East CampusEosinophils0.11 10*3/uLNormal0.00-0.45[facility] CampusEosinophils/100 leukocytes1.8 %NormalTrinity Health System [facility] Campus Erythrocyte distribution width Auto Ratio (RBC)12.9 %Rzqfwn03.5-15.0[facility] CampusErythrocytes (RBC)3.90 10*6/uLNormal3.90-5.20[facility] CampusHematocrit (HCT)34.0 %Low36.0-46.0[facility] CampusHemoglobin mass conc (Bld)10.8 g/dLLow11.5-15.5CMartin Memorial HospitalLymphocytes2.37 10*3/uLNormal1.00-4.00[facility] CampusLymphocytes/100 rmwcywioal41.6 % NormalTrinity Health System East CampusMCH27.7 qUIygyhc15.0-34.0[facility] SystemHC mass conc (RBC)31.8 g/uGIjietm58.5-36.0[facility] MCV87.2 cZZoinqo94.0-100.0[facility] CampusMonocytes/100 leukocytes7.0 %NormalTrinity Health System East CampusNeutrophils/100 WBC Auto (Bld)51.3 %Normal [facility] CampusPlatelet mean volume (PMV)10.8 fLNormal9.0-12.7 [facility] CampusPlatelets268 10*3/iJKevvdu384-822VhbjzrivcTrinity Health System East CampusWBC (Leukocytes)5.98 10*3/uLNormal3.70-11.00[facility] Remote iSTAT BMP (for [facility] use only)on 12-88-4634Kszil gap11 mmol/LNormal0-15 [facility] CampusBUN (urea nitrogen)9 mg/dLNormal8-25[facility] CampusChloride104 mmol/NWtqlel90-070BnoshvbzcTrinity Health System East CampusCO226 mmol/L Rnkjtj35-35PqsiqjksfTrinity Health System East CampusCreatinine0.70 mg/dLNormal0.70-1.40 [facility] CampuseGFR (non-black)mL/min/{1.73_m2}NormalSt. [facility] on above:Result Comment: eGFR (Estimated GFR) Units of measure: mL/min/1.73 meters squaredeGFR is derived from the reexpressed MDRD Study equation using the following parameters: serum creatinine, age, genderand race. The creatinine assay has been calibrated to be traceable to IDMS.An eGFR <60 mL/min/1.73m2 for >3 months is consistent with chronic kidney disease. Refer to KDOQI guidelines for clinical interpretation.In patients with unstable renal function, e.g. those with acute kidney injury, the eGFR may not accurately reflect actual GFR.Glucose mass conc83 mg/tHDemlhl94-070CccdwwgvpTrinity Health System East CampusIonized Calcium, WB1.16 mmol/LNormal1.08-1.30[facility] Comment on above:Result Comment: Please note: This value represents ionized calcium not total calcium.Potassium molar conc3.8 mmol/LNormal3.5-5.0[facility] CampusSodium141 mmol/BOmvhgy477-422MseobqxkxTrinity Health System East CampusFerritin on 41-84-7521Mrwhsokv0.1 ng/mLLow14.7-205.1CProMedica Toledo Hospital on above:Performed By: #### IRON, FERR ####[facility] Olxswiinzfmv[address] Bronx AveCBrooklin, [place] [phone] and TIBCon 52-84-0496Mhcn55 ug/dLLow 41-186St[facility] on above:Performed By: #### IRON, FERR ####[facility] Wvbebeaxrbdz[address] Bronx AveCBrooklin, [place] [address] [phone] ug/bWDodowc142-077WxeirkgvqTrinity Health System East CampusComment on above: Performed By: #### IRON, FERR ####[facility] [address] [place], [place] [phone] Ugzvdhxc88 %Ajy45-18MmutybfreTrinity Health System East CampusComment on above:Performed By: #### IRON, FERR ####[facility] [address] [place], [place] [phone] CBCDIF (for [facility] use only)on 85-34-5951Gfp Baso0.02 k/uLNormal0.00-0.10[facility] CampusAbs Mono0.53 k/uLNormal0.00-0.86[facility] CampusAbs Neut2.48 k/uLNormal1.45-7.50[facility] CampusBasophils/100 WBC Auto (Bld)0.4 % NormalTrinity Health System East CampusEosinophils0.09 10*3/uLNormal0.00-0.45[facility] CampusEosinophils/100 leukocytes1.6 %NormalTrinity Health System [facility] Campus Erythrocyte distribution width Auto Ratio (RBC)13.7 %Ydxsiv45.5-15.0[facility] CampusErythrocytes (RBC)3.85 10*6/uLLow3.90-5.20[facility] CampusHematocrit (HCT)33.5 %Low36.0-46.0[facility] CampusHemoglobin mass conc (Bld)10.7 g/dLLow11.5-15.5CMartin Memorial HospitalLymphocytes2.36 10*3/uLNormal1.00-4.00[facility] CampusLymphocytes/100 phqrmcbyop53.1 % NormalTrinity Health System East CampusMCH27.8 qISfuufs17.0-34.0[facility] SystemHC mass conc (RBC)31.9 g/oRDmertj45.5-36.0[facility] MCV87.0 vJOistiy14.0-100.0[facility] CampusMonocytes/100 leukocytes9.7 %NormalTrinity Health System East CampusNeutrophils/100 WBC Auto (Bld)45.2 %Normal [facility] CampusPlatelet mean volume (PMV)10.8 fLNormal9.0-12.7 [facility] CampusPlatelets282 10*3/tAKvmmzd880-331OtwetwcxkTrinity Health System East CampusWBC (Leukocytes)5.48 10*3/uLNormal3.70-11.00[facility] Remote iSTAT BMP (for [facility] use only)on 25-61-6543Tugnu gap13 mmol/LNormal0-15 [facility] CampusBUN (urea nitrogen)14 mg/dLNormal8-25[facility] CampusChloride102 mmol/POclkvx41-688FklpjfwzxTrinity Health System East CampusCO224 mmol/L Nhyloo93-15HpqcorkvsTrinity Health System East CampusCreatinine0.70 mg/dLNormal0.70-1.40 [facility] East CampuseGFR (non-black)mL/min/{1.73_m2}NormalTrinity Health System East CampusComment on above:Result Comment: eGFR (Estimated GFR) Units of measure: mL/min/1.73 meters squaredeGFR is derived from the reexpressed MDRD Study equation using the following parameters: serum creatinine, age, genderand race. The creatinine assay has been calibrated to be traceable to IDMS.An eGFR <60 mL/min/1.73m2 for >3 months is consistent with chronic kidney disease. Refer to KDOQI guidelines for clinical interpretation.In patients with unstable renal function, e.g. those with acute kidney injury, the eGFR may not accurately reflect actual GFR.Glucose mass conc93 mg/sAZgihqf35-312QdiwwirtyTrinity Health System East CampusIonized Calcium, WB1.14 mmol/LNormal1.08-1.30[facility] Comment on above:Result Comment: Please note: This value represents ionized calcium not total calcium.Potassium molar conc3.7 mmol/LNormal3.5-5.0[facility] CampusSodium139 mmol/MAsimlz071-083XcsttqswkTrinity Health System East CampusRemote CBCDIF (for [facility] use only)on 29-20-8640Cas Baso0.02 k/uLNormal0.00-0.10[facility] CampusAbs Mono0.52 k/uLNormal0.00-0.86[facility] CampusAbs Neut3.37 k/uLNormal1.45-7.50[facility] CampusBasophils/100 WBC Auto (Bld)0.3 %NormalTrinity Health System East CampusEosinophils0.10 10*3/uLNormal0.00-0.45 [facility] CampusEosinophils/100 leukocytes1.7 %NormalTrinity Health System East CampusErythrocyte distribution width Auto Ratio (RBC)18.7 %High11.5-15.0 [facility] CampusErythrocytes (RBC)3.97 10*6/uLNormal3.90-5.20[facility] CampusHematocrit (HCT)33.0 %Low36.0-46.0[facility] Hemoglobin mass conc (Bld)10.5 g/dLLow11.5-15.5CMartin Memorial Hospital Lymphocytes1.92 10*3/uLNormal1.00-4.00[facility] CampusLymphocytes/100 bbpnzaluwh46.4 %NormalTrinity Health System East CampusMCH26.4 bKWlwval43.0-34.0 [facility] SystemHC mass conc (RBC)31.8 g/pIXwoqjs33.5-36.0[facility] CampusMCV83.1 vZCougab80.0-100.0[facility] Monocytes/100 leukocytes8.8 %NormalTrinity Health System East CampusNeutrophils/100 WBC Auto (Bld)56.8 %NormalTrinity Health System East CampusPlatelet mean volume (PMV)10.0 fLNormal9.0-12.7CMartin Memorial HospitalPlatelets263 10*3/mDVfeimg843-195 [facility] CampusWBC (Leukocytes)5.93 10*3/uLNormal3.70-11.00[facility] CampusRemote iSTAT BMP (for [facility] use only)on 85-00-5414Mcrcs gap12 mmol/LNormal0-15[facility] CampusBUN (urea nitrogen)12 mg/dLNormal8-25 [facility] CampusChloride104 mmol/LJuqdfj14-072MzfhqrbyiTrinity Health System East CampusCO224 mmol/TVsbvdv80-61RnkuxuabuTrinity Health System East CampusCreatinine0.80 mg/dL Normal0.70-1.40[facility] East CampuseGFR (non-black)mL/min/{1.73_m2}Normal [facility] on above:Result Comment: eGFR (Estimated GFR) Units of measure: mL/min/1.73 meters squaredeGFR is derived from the reexpressed MDRD Study equation using the following parameters: serum creatinine, age, genderand race. The creatinine assay has been calibrated to be traceable to IDMS.An eGFR <60 mL/min/1.73m2 for >3 months is consistent with chronic kidney disease. Refer to KDOQI guidelines for clinical interpretation.In patients with unstable renal function, e.g. those with acute kidney injury, the eGFR may not accurately reflect actual GFR.Glucose mass conc91 mg/vWDamfqt18-305DxrjbyzzmTrinity Health System East CampusIonized Calcium, WB1.14 mmol/LNormal1.08-1.30[facility] on above:Result Comment: Please note: This value represents ionized calcium not total calcium.Potassium molar conc3.7 mmol/LNormal3.5-5.0 [facility] CampusSodium140 mmol/RLaingq783-052SuxpvfkxaTrinity Health System East Campus Vital Signs Date TimeVital SignValuePerforming TvkhyofzmTweeqeca84-59-8451 15:15-0500Body femeuysqxms45.49 [degF][address]11-05-2025 15:15-0500 Diastolic blood fmvvrzex86 mm[Hg][address]11-05-2025 15:15-0500Heart rate86 /minW[address]11-05-2025 15:15-0500 Respiratory rate18 /minW[address]11-05-2025 15:15-0500Systolic blood exqucfqj820 mm[Hg][address]11-05-2025 13:25-0500Body mass index (BMI) [Ratio]27.99 kg/m2W[address]11-05-2025 13:25-0500Body ufcxmd49.[address]10-13-2025 15:26-0400 Body .1 cmCorechano Valdez [employer] Work Phone: [facility] CenterYtaafqnzuc27-76-9972 15:26-0400Body mass index (BMI) [Ratio]27.92 kg/d0Ideaxchano Valdez DO Work Phone: [facility] [phone] 15:26-0400Body fioiwm44.11 kgCorechano Valdez [employer] Work Phone: [place] [address]Bterphvsrb39-39-6689 15:26-0400Diastolic blood mm[Hg]Parish Valdez [employer] Work Phone: [facility] CenterRnqstwdpcs70-49-8625 15:26-0400Systolic blood rttyciuy234 mm[Hg]Parish Valdez [employer] Work Phone: [facility] CenterHbhnajgive26-39-7806 08:27-0400Body .1 cmAssumpta Corie HERNANDEZN-PATROL MAN Work Phone: [facility]10-03-2025 08:27-0400Body mass index (BMI) [Ratio]27.62 kg/y5Fkdmezmi Corie ACTING INSTRUCTOR-PATROL MAN Work Phone: [address] [place], [place] 7293310-03-2025 08:27-0400Body nnrdyegopta72.1 [degF]Assumpta Corie ACTING INSTRUCTOR-PATROL MAN Work Phone: [facility]10-03-2025 08:27-0400Body jchdik12.3 kgAssumpta Corie ACTING INSTRUCTOR-PATROL MAN Work Phone: [address] [place], [place] 7293310-03-2025 08:27-0400Diastolic blood rjnxqoyc90 mm[Hg]Assumpta Corie ACTING INSTRUCTOR-PATROL MAN Work Phone: [facility]10-03-2025 08:27-0400Heart rate 81 /minAssumpta Corie ACTING INSTRUCTOR-PATROL MAN Work Phone: [facility]10-03-2025 08:27-2326RdR7% (BldA) [Mass fraction]98 %Assumpta Corie ACTING INSTRUCTOR-PATROL MAN Work Phone: [facility]10-03-2025 08:27-0400Systolic blood fekhslba464 mm[Hg]Assumpta Corie ACTING INSTRUCTOR-PATROL MAN Work Phone: [facility]09-24-2025 14:42-0400Body ugxvbynemrs39.6 [degF][address]09-24-2025 14:42-0400Diastolic blood jsfofsan56 mm[Hg][address]09-24-2025 14:42-0400Heart rate87 /minWlc [address] [place], [place] 4310909-24-2025 14:42-0400Respiratory rate20 /minWlc [address] [place], [place] 4310909-24-2025 14:42-0400Systolic blood sunwqfql862 mm[Hg][address]09-24-2025 13:12-0400Body mass index (BMI) [Ratio]28.12 kg/m[address]09-24-2025 13:12-0400Body weight 76.[address]09-08-2025 14:36-0400Body mass index (BMI) [Ratio]28.04 kg/t7MqvznunpTierney Simmons NUCLEAR WEAPONS MECHANICAL SPECIALIST Work Phone: [facility] CenterOsswhreyab39-17-1612 14:36-0400Body wnmnir20.43 kgTierney Simmons NUCLEAR WEAPONS MECHANICAL SPECIALIST Work Phone: [facility] CenterEodehgggko85-36-9627 14:36-0400Diastolic blood rspsuedz85 mm[Hg]Tierney Simmons NUCLEAR WEAPONS MECHANICAL SPECIALIST Work Phone: [facility] CenterDzcraqmjkp32-01-3831 14:36-0400Systolic blood hqtxiqwb748 mm[Hg]Tierney Simmons NUCLEAR WEAPONS MECHANICAL SPECIALIST Work Phone: [facility] CenterAlkmgwsour00-42-5383 14:30-0400Body temperature 98.29 [degF][address]08-13-2025 14:30-0400Diastolic blood itxvbyxv40 mm[Hg][address]08-13-2025 14:30-0400Heart rate77 /minWlc [address] [place], [place] 0822308-13-2025 14:30-0400Respiratory rate18 /minWlc [address] [place], [place] 0822308-13-2025 14:30-0400Systolic blood bydzpkdx309 mm[Hg] [address]08-13-2025 12:55-0400Body mass index (BMI) [Ratio] 26.86 kg/m2lc [address] [place], [place] 0822308-13-2025 12:55-0400Body rgsyiw66.[address] kg [address]07-16-2025 12:36-0400Diastolic blood lcvyzqtm26 mm[Hg]Pfo [address] [place], [place] 4310907-16-2025 12:36-0400Heart rate96 /minPfo 2 [facility]07-16-2025 12:36-0400Respiratory rate16 /minPfo 2 [facility]07-16-2025 12:36-0400Systolic blood vrhzkanj282 mm[Hg]Pfo [address] [place], [place] 4310907-16-2025 09:06-0400Body ihlchi544.1 [facility] [address] [place], [place] 4310907-16-2025 09:06-0400Body mass index (BMI) [Ratio]27.16 kg/m2Pfo 2 [facility]07-16-2025 09:06-0400Body wevtpgkyooa78.1 [degF]Pfo 2 [facility]07-16-2025 09:06-0400Body imqwzg33.[address] [place], [place] 4310907-16-2025 09:06-0385TgY0% (BldA) [Mass fraction]100 %Pfo 2 [facility]06-30-2025 11:40-0400Body rxgxnfoqgwf08.9 [degF][facility] 5 [facility]06-30-2025 11:40-0400Diastolic blood xudsxvpv61 mm[Hg][address]06-30-2025 11:40-0400Heart rate86 /minWlc [address] [place], [place] 4640506-30-2025 11:40-0400Respiratory rate18 /minWlc [address] [place], [place] 4640506-30-2025 11:40-0400Systolic blood bvjjdnez358 mm[Hg]Wlc [address] [place], [place] 4640506-30-2025 10:10-0400Body mass index (BMI) [Ratio]26.46 kg/m2Wlc 5 [facility]06-30-2025 10:10-0400Body qafxuh01.[address] [place], [place] 4640506-23-2025 14:12-0400Body wwrkyt371.1 cmHilary Aviles ACTING INSTRUCTOR-PATROL MAN Work Phone: [phone]06-23-2025 14:12-0400Body mass index (BMI) [Ratio]26.43 kg/t5NkdtiyHilary Aviles ACTING INSTRUCTOR-PATROL MAN Work Phone: [facility]06-23-2025 14:12-0400Body .2 [degF]Hilary Aviles ACTING INSTRUCTOR-PATROL MAN Work Phone: [phone]06-23-2025 14:12-0400Body pfifmt04.03 kgHilary Aviles ACTING INSTRUCTOR-PATROL MAN Work Phone: [phone]06-23-2025 14:12-0400Diastolic blood yjitrvns13 mm[Hg]Hilary Aviles APRN-PATROL MAN Work Phone: [facility]06-23-2025 14:12-0400Heart rate 92 /minHilary Aviles ACTING INSTRUCTOR-PATROL MAN Work Phone: [phone]06-23-2025 14:12-8379FkI9% (BldA) [Mass fraction]98 %Hilary Aviles ACTING INSTRUCTOR-PATROL MAN Work Phone: [phone]06-23-2025 14:12-0400Systolic blood meobsins393 mm[Hg]Hilary Aviles APRN-PATROL MAN Work Phone: [facility]06-05-2025 11:01-0400Body mass index (BMI) [Ratio]27.04 kg/m2Amy Framingham PA Work Phone: [facility] CenterCncoqjssgb78-90-2541 11:01-0400Body xtsjuf87.71 kgYaquelin Horne PA Work Phone: [facility] CenterVoekbhahek14-20-1833 11:01-0400Diastolic blood joeaqxuc88 mm[Hg]Yaquelin Horne PA Work Phone: [facility] CenterNjtwjehwsz90-30-6332 11:01-0400Systolic blood locypahe378 mm[Hg]Yaquelin Horne PA Work Phone: [facility] CenterDciemowvtw76-20-8675 14:13-0400Body fpajre854.1 My Turner ACTING INSTRUCTOR-PATROL MAN Work Phone: [phone]05-29-2025 14:13-0400Body mass index (BMI) [Ratio]26.79 kg/w5KntsgCee Turner ACTING INSTRUCTOR-PATROL MAN Work Phone: [phone]05-29-2025 14:13-0400Body ggrxdu86.03 kgJoaneric Turner ACTING INSTRUCTOR-PATROL MAN Work Phone: [phone]05-29-2025 14:13-0400Diastolic blood yzzcaygk54 mm[Hg]Ceelevy Turner ACTING INSTRUCTOR-PATROL MAN Work Phone: [phone]05-29-2025 14:13-0400Systolic blood wdinhtqf016 mm[Hg]Ceelevy Turner ACTING INSTRUCTOR-PATROL MAN Work Phone: [phone]05-27-2025 11:50-0400Body xllwyk571.1 cmPadmini Wilson MD Work Phone: [facility]05-27-2025 11:50-0400Body mass index (BMI) [Ratio]27.16 kg/o2AbfhnmdPadmini Wilson MD Work Phone: [facility]05-27-2025 11:50-0400Body .03 kgPadmini Wilson MD Work Phone: [facility]05-27-2025 11:50-0400Diastolic blood xexdkdxi20 mm[Hg]Padmini Wilson MD Work Phone: [facility]05-27-2025 11:50-0400Heart rate 108 /Jose Wilson MD Work Phone: [facility]05-27-2025 11:50-0400 Respiratory rate17 /minPadmini Wilson MD Work Phone: [facility]05-27-2025 11:50-0400Systolic blood uewvxyfl92 mm[Hg]Padmini Wilson MD Work Phone: [facility]05-19-2025 13:45-0400Body vleeasrrgdc83.29 [degF][address]05-19-2025 13:45-0400 Diastolic blood mm[Hg][address]05-19-2025 13:45-0400Heart rate77 /minWlc [address] [place], [place] 4310905-19-2025 13:45-0400 Respiratory rate18 /minWlc [address] [place], [place] 4310905-19-2025 13:45-0400Systolic blood zvpognle488 mm[Hg][address]05-19-2025 12:15-0400Body mass index (BMI) [Ratio]26.96 kg/m2Wlc [address] [place], [place] 4310905-19-2025 12:15-0400Body .[address] [place], [place] 4310905-19-2025 11:09-0400 Body mass index (BMI) [Ratio]26.96 kg/h2JgddgSharda Montiel MD Work Phone: [facility]05-19-2025 11:09-0400Body fqseus99.48 kgSharda Montiel MD Work Phone: [facility]05-19-2025 11:09-0400Diastolic blood ulleooeg86 mm[Hg]Sharda Montiel MD Work Phone: [facility]05-19-2025 11:09-0400Systolic blood xjcwijcy743 mm[Hg]Sharda Montiel MD Work Phone: [facility]05-12-2025 15:35-0400Body zhfpyu171.1 Sumi Kinney MD Work Phone: [phone] [place], [place] 8463605-12-2025 15:35-0400Body mass index (BMI) [Ratio]26.88 kg/v6CevnpqohcNorma Kinney MD Work Phone: [phone])[address] [place], [place] 8463605-12-2025 15:35-0400Body xpawjsbrthe21.8 [degF]Norma Kinney MD Work Phone: [phone])[address] [place], [place] 8463605-12-2025 15:35-0400Body ewmrhx09.26 kgNorma Kinney MD Work Phone: 1(670)[address] [place], [place] 8463605-12-2025 15:35-0400Diastolic blood gbkywcyq45 mm[Hg]Norma Kinney MD Work Phone: 1(208)[address] [place], [place] 8463605-12-2025 15:35-0400Systolic blood ejmksjax549 mm[Hg]Norma Kinney MD Work Phone: 1(034)[address] [place], [place] 8463605-05-2025 13:08-0400Body .1 cmPadmini Wilson MD Work Phone: 1(285)077-[facility]05-05-2025 13:08-0400Body mass index (BMI) [Ratio]27.12 kg/g9NzzxyjyPadmini Wilson MD Work Phone: [phone])399-[facility]05-05-2025 13:08-0400Body .94 kgPadmini Wilson MD Work Phone: 1([phone]-[facility]05-05-2025 13:08-0400Diastolic blood duydjslb74 mm[Hg]Padmini Wilson MD Work Phone: [phone])414-[facility]05-05-2025 13:08-0400Heart rate 114 /minMustaliliana Wilson MD Work Phone: [phone] [place], [place] 7472205-05-2025 13:08-0400Systolic blood dccekllg385 mm[Hg]Padmini Wilson MD Work Phone: 1(770)[address] [place], [place] 7472205-05-2025 10:14Body ehcqrs099.1 Sumi Kinney MD Work Phone: 1(419)[address] [place], [place] 8463605-05-2025 10:14040Body mass index (BMI) [Ratio]27.06 kg/l5HarmwuvimNorma Kinney MD Work Phone: 1(419)[address] [place], [place] 8463605-05-2025 10:14Body boqhetsfpuo21.29 [degF]Norma Kinney MD Work Phone: 1(517)[address] [place], [place] 8463605-05-2025 10:14Body .75 kgNorma Kinney MD Work Phone: 1(341)[address] [place], [place] 8463605-05-2025 10:14040Diastolic blood mm[Hg]Norma Kinney MD Work Phone: 1(214)[address] [place], [place] 8463605-05-2025 10:14Heart rate 101 /minNorma Kinney MD Work Phone: 1(353)[address] [place], [place] 8463605-05-2025 10:14040Systolic blood sdlcydfn06 mm[Hg]Norma Kinney MD Work Phone: 1(044)[address] [place], [place] 8463604-25-2025 05:10-6201HsZ3% (BldA) [Mass fraction]99 %[facility]IONALANGELICAAshtab[facility] Center HospitalComment on above:Performed By: #### ABG ####[facility] ([id number])[address] [place], [place] 6091445-31-7307 04:22-3880JrC9% (BldA) [Mass fraction]98 % [facility] HospitalComment on above:Performed By: #### ABG ####[facility] ([id number])2 [facility] [place] [address] 06-02-2024 13:15-7002PnN6% (BldA) [Mass fraction]95 %[facility] NorthComment on above:Performed By: #### ABG ####[facility] ([id number])[address] [place], [place] 8511198-68-5763 16:14-0400 SaO2% (BldA) [Mass fraction]100 %[facility] Comment on above:Performed By: #### ABG ####[facility] ([id number])2[address] [facility] [facility] HOSPITALJ[facility] [place], [place] 6023753-45-1524 12:54-0859DvS6% (BldA) [Mass fraction]10 %[facility] NorthComment on above: Performed By: #### ABG ####[facility] ([id number])[address] [place], [place] 5139157-70-2633 14:28-0400Body mass index (BMI) [Ratio]31.62 kg/l7Bxnuz Courtney DO Work Phone: [phone]-[facility] CenterQqxbsahojv74-93-0318 14:28-0400Body hnakqq76.18 kgCorey Courtney DO Work Phone: 1([phone] [place], [place] [address]Ffvtrufxdo80-58-8685 14:28-0400Diastolic blood mm[Hg]Parish Courtney DO Work Phone: [phone]-[facility]1[place] [address]Ogztneuxcy89-40-7391 14:28-0400Systolic blood spgjzyhj560 mm[Hg]Parish Courtney DO Work Phone: 1(814)209-[address] [place] [address]-14-2025 12:55-0400Body temperature 99.3 [degF][address]04-14-2025 12:55-0400Diastolic blood njvdonmh68 mm[Hg][address]04-14-2025 12:55-0400Heart strj361 /minWlc [address] [place], [place] 0822304-14-2025 12:55-0400Respiratory rate18 /minWlc [address] [place], [place] 0822304-14-2025 12:55-0400Systolic blood tflxldon546 mm[Hg] [address]04-14-2025 10:35-0400Body mass index (BMI) [Ratio] 31.65 kg/m[address]04-14-2025 10:35-0400Body lxtqug77.[address]04-02-2025 14:49-0400Body mass index (BMI) [Ratio] 31.45 kg/m2Yaquelin BELCHER Work Phone: [facility] CenterGbmzqniprw26-42-8672 14:49-0400Body ihawua69.73 kgYaquelin BELCHER Work Phone: [facility] CenterEzwjbgalbu50-52-1562 14:49-0400Diastolic blood luedlkxe00 mm[Hg]Yaquelin BELCHER Work Phone: [facility] CenterNkqhrmusrv90-15-4721 14:49-0400Systolic blood mm[Hg]Yaquelin BELCHER Work Phone: [facility] CenterKnfgdspdma29-49-6139 09:41-0400Body qsuitq570.1 cmMicismael Jimenez DO Work Phone: [facility]03-27-2025 09:41-0400Body mass index (BMI) [Ratio]31.62 kg/r3Zkzcxsg Barbara DO Work Phone: [facility]03-27-2025 09:41-0400Body yzjffppxhrm39.2 [degF]Raulito Jimenez DO Work Phone: [facility]03-27-2025 09:41-0400Body kuxtwc56.18 kgMicismael Jimenez DO Work Phone: [facility]03-27-2025 09:41-0400Diastolic blood oyepeiiy80 mm[Hg]Raulito Jimenez DO Work Phone: [facility]03-27-2025 09:41-0400Heart rate 110 /minMichaemarii Jimenez DO Work Phone: [facility]03-27-2025 09:41-3796OpA3% (BldA) [Mass fraction]98 %Raulito Jimenez DO Work Phone: [facility]03-27-2025 09:41-0400Systolic blood dpjsjyui049 mm[Hg]Raulito Jimenez DO Work Phone: [facility]03-17-2025 10:26-0400Body mass index (BMI) [Ratio]30.65 kg/q4Leabx Fazio DO Work Phone: [facility] CenterBtvlpwsntz89-36-1115 10:26-0400Body .55 kgParish Valdez DO Work Phone: [facility] CenterGjgnzbpnpp94-95-0419 10:26-0400Diastolic blood mm[Hg]Parish Valdez DO Work Phone: [facility] CenterVizbddumbq36-32-4566 10:26-0400Systolic blood mm[Hg]Parish Valdez DO Work Phone: [facility] CenterZxldsajafh88-62-7847 13:13-0400Body temperature 99.19 [degF][address]03-10-2025 13:13-0400Diastolic blood rwzumpep91 mm[Hg][address]03-10-2025 13:13-0400Heart rate96 /minWlc [address] [place], [place] 1194803-10-2025 13:13-0400Respiratory rate20 /minWlc [address] [place], [place] 1194803-10-2025 13:13-0400Systolic blood xqwosljq413 mm[Hg] [address]03-10-2025 10:41-0400Body mass index (BMI) [Ratio] 30.63 kg/m2W[address]03-10-2025 10:41-0400Body ftcytk90.[address]03-10-2025 09:53-0400Body savycg318.1 Talat Montiel MD Work Phone: [facility]03-10-2025 09:53-0400Body mass index (BMI) [Ratio]30.62 kg/q0XykloSharda Montiel MD Work Phone: [facility]03-10-2025 09:53-0400Body cubcwx86.46 kgSharda Montiel MD Work Phone: [facility]03-10-2025 09:53-0400Diastolic blood sauijjec31 mm[Hg]Sharda Montiel MD Work Phone: [facility]03-10-2025 09:53-0400Systolic blood iqclvogu353 mm[Hg]Sharda Montiel MD Work Phone: [facility]03-05-2025 14:33-0500Body mass index (BMI) [Ratio]30.42 kg/g7Klcdn Courtney DO Work Phone: [facility] CenterJkjjbbkbuh12-31-2685 14:33-0500Body .92 kgCorey Courtney DO Work Phone: [facility] CenterQifgdcctwi19-54-6993 14:33-0500Diastolic blood xlcywxne59 mm[Hg]Parish Courtney DO Work Phone: [facility] CenterRvhovridvw28-98-8384 14:33-0500Systolic blood dprmghai166 mm[Hg]Parish Courtney DO Work Phone: [facility] CenterFhmlxghqhf19-16-0795 10:51-0500Body mass index (BMI) [Ratio]29.31 kg/m2Yaquelin BELCHER Work Phone: [facility] CenterBgxfmomuce02-39-9605 10:51-0500Body ggpuqe84.89 kgYaquelin BELCHER Work Phone: [facility] CenterVagsednxav80-46-5771 10:51-0500Diastolic blood xubywyua55 mm[Hg]Yaquelin BELCHER Work Phone: [facility] CenterFzcztkjwwb00-71-4568 10:51-0500Systolic blood yetttibd018 mm[Hg]Yaquelin BELCHER Work Phone: [facility] CenterKappymsiqp80-12-4049 12:30-0500Body temperature 99.81 [degF][address]01-27-2025 12:30-0500Diastolic blood xsiwlgpa34 mm[Hg][address]01-27-2025 12:30-0500Heart have463 /minWlc [address] [place], [place] 1194801-27-2025 12:30-0500Respiratory rate18 /minWlc [address] [place], [place] 1194801-27-2025 12:30-0500Systolic blood hmligcae997 mm[Hg] [address]01-27-2025 10:10-0500Body mass index (BMI) [Ratio] 29.62 kg/m[address]01-27-2025 10:10-0500Body .74 kg [address]01-08-2025 11:43-0500Body mass index (BMI) [Ratio] 29.29 kg/l0Iwfmw Courtney DO Work Phone: [facility] CenterYvozwrkasd61-50-6568 11:43-0500Body wwywqs42.83 kgCorey Courtney DO Work Phone: [facility] CenterOvhfgvjalb35-45-3131 11:43-0500Diastolic blood pypphfin57 mm[Hg]Parish Courtney DO Work Phone: [facility] CenterMibtlpufdq42-51-3601 11:43-0500Systolic blood lvmgcbop280 mm[Hg]Parish Courtney DO Work Phone: [facility] CenterUuatyikjnk69-99-8456 11:50-0400Body temperature 98.91 [degF][address]11-01-2024 11:50-0400Diastolic blood mm[Hg][address]11-01-2024 11:50-0400Heart rate92 /minWlc [address] [place], [place] 4310911-01-2024 11:50-0400Respiratory rate18 /minWlc [address] [place], [place] 4310911-01-2024 11:50-0400Systolic blood qutaamkc559 mm[Hg] [address]11-01-2024 10:31-0400Body mass index (BMI) [Ratio] 27.96 kg/m[address]11-01-2024 10:31-0400Body qahofd50.2 kg [address]10-21-2024 14:25-0400Body .1 cmChasity Josh ACTING INSTRUCTOR-PATROL MAN Work Phone: [facility]10-21-2024 14:25-0400Body mass index (BMI) [Ratio]27.89 kg/v7Ddgajtd Josh ACTING INSTRUCTOR-PATROL MAN Work Phone: [facility]10-21-2024 14:25-0400Body xcvvzhtxhir68.8 [degF]Ree Josh ACTING INSTRUCTOR-PATROL MAN Work Phone: [facility]10-21-2024 14:25-0400Body mhudds16.02 kgChasity Josh ACTING INSTRUCTOR-PATROL MAN Work Phone: [facility]10-21-2024 14:25-0400Diastolic blood coruunhl28 mm[Hg]Ree Josh ACTING INSTRUCTOR-PATROL MAN Work Phone: [facility]10-21-2024 14:25-0400Heart rate 71 /minChasity Josh ACTING INSTRUCTOR-PATROL MAN Work Phone: [facility]10-21-2024 14:25-0400 Respiratory rate16 /minChasity Josh ACTING INSTRUCTOR-PATROL MAN Work Phone: [facility]10-21-2024 14:25-5485YzO8% (BldA) [Mass fraction]99 %Ree Josh ACTING INSTRUCTOR-PATROL MAN Work Phone: [facility]10-21-2024 14:25-0400Systolic blood ckmpxkxe268 mm[Hg]Ree Moreno ACTING INSTRUCTOR-PATROL MAN Work Phone: [facility]09-20-2024 11:13-0400Body kvtdswkydzu38.6 [degF][address]09-20-2024 11:13-0400Diastolic blood eecsbrfc95 mm[Hg][address]09-20-2024 11:13-0400Heart rate85 /minWlc [address] [place], [place] 4310909-20-2024 11:13-0400Respiratory rate18 /minWlc [address] [place], [place] 4310909-20-2024 11:13-0400Systolic blood nirsrcfs900 mm[Hg][address]09-20-2024 09:51-0400Body mass index (BMI) [Ratio]27.81 kg/m2Wlc [address] [place], [place] 4310909-20-2024 09:51-0400Body weight 75.[address] [place], [place] 4310909-20-2024 08:50-0400Body erouea109.1 Talat Montiel MD Work Phone: [facility]09-20-2024 08:50-0400Body mass index (BMI) [Ratio]27.79 kg/c5VrbygSharda Montiel MD Work Phone: [facility]09-20-2024 08:50-0400Body xfelao26.75 kgSharda Montiel MD Work Phone: [facility]09-20-2024 08:50-0400Diastolic blood mm[Hg]Sharda Montiel MD Work Phone: [facility]09-20-2024 08:50-0400Systolic blood hbiptdms490 mm[Hg]Sharda Montiel MD Work Phone: [facility]08-07-2024 09:46-0400Body mass index (BMI) [Ratio]27.06 kg/z4WmyfsvHilary Aviles ACTING INSTRUCTOR-PATROL MAN Work Phone: [facility]08-07-2024 09:46-0400Body rieejvttrsi75.2 [degF]Hilary Aviles APRN-PATROL MAN Work Phone: [facility]08-07-2024 09:46-0400Body ztrvnu96.75 kgHilary Aviles APRN-PATROL MAN Work Phone: [facility]08-07-2024 09:46-0400Diastolic blood gozkvujk43 mm[Hg]Hilary Aviles APRN-PATROL MAN Work Phone: [facility]08-07-2024 09:46-0400Heart rate 75 /minHilary Aviles APRN-PATROL MAN Work Phone: [facility]08-07-2024 09:46-1876ZrZ3% (BldA) [Mass fraction]97 %Hilary Aviles APRN-PATROL MAN Work Phone: [facility]08-07-2024 09:46-0400Systolic blood vahlynmp33 mm[Hg]Hilary Aviles APRN-PATROL MAN Work Phone: [facility]08-05-2024 12:10-0400Body ayrvqvpgfhx93.71 [degF][address]08-05-2024 12:10-0400 Diastolic blood kzmbecny88 mm[Hg][address]08-05-2024 12:10-0400Heart rate75 /minWlc [address] [place], [place] 0822308-05-2024 12:10-0400 Respiratory rate20 /minW[address]08-05-2024 12:10-0400Systolic blood tssigcbr169 mm[Hg][address]08-05-2024 10:43-0400Body mass index (BMI) [Ratio]26.89 kg/m295 [address]08-05-2024 10:43-0400Body .[address]07-10-2024 14:15-0400 Body fmtmom798.1 cmJudith Traci ACTING INSTRUCTOR-PATROL MAN Work Phone: [facility]07-10-2024 14:15-0400Body mass index (BMI) [Ratio]26.36 kg/m6GvevdhHilary Aviles APRN-PATROL MAN Work Phone: [facility]07-10-2024 14:15-0400Body jkkkudlpqxn68.6 [degF]Hilary Aviles APRN-PATROL MAN Work Phone: [facility]07-10-2024 14:15-0400Body .85 kgHilary Aviles APRN-PATROL MAN Work Phone: [facility]07-10-2024 14:15-0400Diastolic blood lnhqrywq17 mm[Hg]Hilary Aviles APRN-PATROL MAN Work Phone: [facility]07-10-2024 14:15-0400Heart rate 87 /minHilary Aviles APRN-PATROL MAN Work Phone: [facility]07-10-2024 14:15-2272TmM0% (BldA) [Mass fraction]97 %Hilary Aviles APRN-PATROL MAN Work Phone: [facility]07-10-2024 14:15-0400Systolic blood mm[Hg]Hilary Fontaineler ACTING INSTRUCTOR-PATROL MAN Work Phone: [facility]06-24-2024 14:48-0400Body dqnqmixhetw72.2 [degF][address]06-24-2024 14:48-0400Diastolic blood dqlkdcul26 mm[Hg][address]06-24-2024 14:48-0400Heart rate76 /minWlc [address] [place], [place] 4310906-24-2024 14:48-0400Respiratory rate20 /minWlc [address] [place], [place] 4310906-24-2024 14:48-0400Systolic blood eoxvnpnh388 mm[Hg][address]06-24-2024 13:22-0400Body mass index (BMI) [Ratio]27.19 kg/m2Wlc [address] [place], [place] 4310906-24-2024 13:22-0400Body weight 74.[address] [place], [place] 4310903-11-2024 13:05-0400Body zpayoushicm89.81 [degF][address]03-11-2024 13:05-0400Diastolic blood pressure 75 mm[Hg][address]03-11-2024 13:05-0400Heart rate78 /minWlc [address] [place], [place] 0884003-11-2024 13:05-0400Respiratory rate20 /minWlc [address] [place], [place] 0884003-11-2024 13:05-0400Systolic blood cogesitw343 mm[Hg][address]03-11-2024 10:29-0400Body mass index (BMI) [Ratio]27.89 kg/m2Wlc [address] [place], [place] [id number] 10:29-0400Body vdtaax15.[address]01-11-2024 11:48-0500Body qwwyjk334.1 cmLyndsey Anders MD Work Phone: [facility]01-11-2024 11:48-0500Body mass index (BMI) [Ratio]27.46 kg/n2OpsgdbcLyndsey Anders MD Work Phone: [facility]01-11-2024 11:48-0500Body fozyndcojdu41.91 [degF]Lyndsey Anders MD Work Phone: [facility]01-11-2024 11:48-0500Body vhczmo34.84 kgLyndsey Anders MD Work Phone: [facility]01-11-2024 11:48-0500Diastolic blood mm[Hg]Lyndsey Anders MD Work Phone: [facility]01-11-2024 11:48-0500Heart rate 104 /minLyndsey Anders MD Work Phone: [facility]01-11-2024 11:48-7445ArS8% (BldA) [Mass fraction]99 %Lyndsey Anders MD Work Phone: [facility]01-11-2024 11:48-0500Systolic blood mm[Hg]Lyndsey Anders MD Work Phone: [facility]01-08-2024 14:26-0500Body jggnwmmqrat77.1 [degF][address]01-08-2024 14:26-0500Diastolic blood bekefksk29 mm[Hg][address] Street01-08-2024 14:26-0500Heart omwo750 /minWlc [address] [place], [place] 0822301-08-2024 14:26-9480IgT3% (BldA) [Mass fraction]97 %[address]01-08-2024 14:26-0500Systolic blood wwuslrvx747 mm[Hg][address]01-08-2024 11:45-0500Body mass index (BMI) [Ratio]27.69 kg/m[address]01-08-2024 11:45-0500 Body wyzacp98.[address]01-08-2024 11:45-0500Respiratory rate20 /minWlc [address] [place], [place] 0822312-28-2023 12:54-0500Diastolic blood nohoipti81 mm[Hg][address]12-28-2023 12:54-0500Heart rate92 /minPfo [address] [place], [place] 0822312-28-2023 12:54-0500Respiratory rate18 /minPfo [address] [place], [place] 0822312-28-2023 12:54-6009MsK3% (BldA) [Mass fraction]100 % [address]12-28-2023 12:54-0500Systolic blood jyokxypo291 mm[Hg][address]12-28-2023 11:37-0500Body pmyyno843.1 [facility] [address] [place], [place] 9495012-28-2023 11:37-0500Body mass index (BMI) [Ratio]27.46 kg/m2Pfo [address] [place], [place] 0822312-28-2023 11:37-0500Body .4 [degF]Pfo [address] [place], [place] 0822312-28-2023 11:37-0500Body qchdye13.84 kgPfo 3 [facility] Encounters Encounter DateEncounter TypeCare ProviderFacilityStart: 22-61-3995gjelicglgi [facility] HospitalStart: 12-15-2024 End: 19-52-3930uvbqruagdeHdb Dhc Infusion Chair [address] [place] [address], A Department of [facility] HospitalComment on above:Crohn's disease of both small and large intestine with intestinal obstruction (CMS-HCC) (Primary Dx)Start: 11-22-2024 End: 03-14-3863pdthjtnkxdUMOYZ FAZIONot AvailableStart: 11-22-2024 End: 72-20-4171Rljvsv outpatient visit 15 minutesCorey Courtney DO Work Phone: [facility] OBGYNComment on above:Encounter for consultation; Menorrhagia with regular cycleStart: 11-22-2024 End: 70-28-1492Yyfgbn flowsheetCorey Courtney DO Work Phone: [facility] OBGYNStart: 11-22-2024 End: 66-33-5910Umtjbo flowsheetCorey Courtney DO Work Phone: [facility] OBGYNStart: 11-12-2024 End: 97-02-9066owfkqorbofLVSLBFVS N [facility]ECrystal [facility] Ambulatory PPGStart: 11-12-2024 End: 26-83-1741Wyvahy outpatient visit 15 minutesAssumpta N Corie ACTING INSTRUCTOR-PATROL MAN Work Phone: [facility] Physicians Family MedicineComment on above: Open wound of nasal cavity, initial encounter (Primary Dx); Iron deficiency anemia, unspecifiedStart: 11-03-2024 End: 87-43-2748qagqakozstBus Dhc Infusion Chair 2[facility] Physicians Digestive Healthcare InfusionComment on above:Crohn's disease of both small and large intestine with intestinal obstruction (CMS-HCC) (Primary Dx)Start: 10-18-2024 End: 56-53-1296Mrfvhnl encounter procedureTierney Simmons NUCLEAR WEAPONS MECHANICAL SPECIALIST Work Phone: [facility] Work Phone: Start: 10-18-2024 End: 00-53-2724Tnziiidx preventive med est patient 18-39 yrsTierney Simmons NUCLEAR WEAPONS MECHANICAL SPECIALIST Work Phone: [facility] OBGYNComment on above:Well woman exam with routine gynecological exam (Primary Dx)Start: 10-18-2024 End: 35-39-4158gmlijywiodUCIRDUXQ EBERLYNot AvailableStart: 10-18-2024 End: 84-25-5500Jmvrjm flowsheetTierney Simmons NUCLEAR WEAPONS MECHANICAL SPECIALIST Work Phone: [facility] OBGYNStart: 10-18-2024 End: 37-94-4827Aavngm flowsheetTierney Simmons NUCLEAR WEAPONS MECHANICAL SPECIALIST Work Phone: [facility] OBGYNStart: 10-18-2024 End: 76-07-4263Uhhbazbqr Result EncounterTierney Simmons NUCLEAR WEAPONS MECHANICAL SPECIALIST Work Phone: [facility] External Department UnsolicitedStart: 09-22-2024 End: 53-46-7529iikpdzstdhAyu Dhc Infusion Chair 3P[facility] Digestive Healthcare InfusionComment on above:Crohn's disease of both small and large intestine with intestinal obstruction (CMS-HCC) (Primary Dx)Start: 09-10-2024 ambulatoryJUDTrinity Health System West Campustart: 09-08-2024 End: 92-09-0594Vcdwqgcmh department patient visitJUDITH Wilson Healthtart: 08-25-2024 End: 06-94-4879mboibloaspBqq Infusion Chair 2DveeHealthSouth Rehabilitation Hospital - Medical OncologyComment on above:Iron malabsorption (Primary Dx); Iron deficiency anemia due to chronic blood loss; Iron deficiency anemia, unspecifiedStart: 08-17-2024 End: 69-05-6772Buitxpuom encounterEbchristal Velasco [facility], A Department of [facility] Hospitaltart: 08-12-2024 End: 67-21-7461Ewadfs OnlyJayjay Clayton APRN-PATROL MAN Work Phone: [facility] Physicians Benign HematologyComment on above:Iron deficiency anemia due to chronic blood loss (Primary Dx); Iron malabsorption; Iron deficiency anemia, unspecifiedStart: 08-11-2024 End: 57-97-7287Litnww outpatient visit 15 minutesHilary Aviles APRN-PATROL MAN Work Phone: [facility] Physicians Family MedicineComment on above: History of epidural anesthesia (Primary Dx); Acute midline low back pain without sciaticaStart: 08-11-2024 End: 88-42-5742qfghicwlczKJHYNQ A [facility]ALTHANGELICAWVUMed[facility] Ambulatory [facility] Start: 08-09-2024 End: 00-33-3424efujlzxmprWwe Dhc Infusion Chair [address] [place] [address] Physicians Digestive [facility] InfusionComment on above:Crohn's disease of both small and large intestine with intestinal obstruction ([facility]-HCC) (Primary Dx)Start: 08-04-2024 End: 05-40-6906Rfpujw OnlyHilary Aviles APRN-PATROL MAN Work Phone: [facility] Physicians Family MedicineComment on above: Lumbar pain (Primary Dx)Start: 08-03-2024 End: 60-30-8052npeqlblpfyBTHP VILCHEZMemorial Health System Marietta Memorial Hospitaltart: 08-03-2024 End: 39-65-8794Xzgtts outpatient new 45 minutesJayjay Clayton APRN-PATROL MAN Work Phone: [facility] Physicians Benign HematologyComment on above:Iron deficiency anemia due to chronic blood loss (Primary Dx); Iron deficiency anemia, unspecified iron deficiency anemia type; Iron malabsorption; Iron deficiency anemia, unspecifiedStart: 08-02-2024 End: 60-59-3521Zzlkxswri department patient visitJUDMIGUEL ANGEL AVILESProtestant Deaconess Hospital HospitalStart: 08-02-2024 End: 04-04-7014bxdupykdruRPECAS A SCHUESSLERCrystal Clinic Orth[facility] Ambulatory PPG Start: 08-02-2024 End: 29-80-7849Iuudkd outpatient visit 25 minutesHilary Aviles APRN-PATROL MAN Work Phone: [facility] Physicians Family MedicineComment on above: Lumbar strain, initial encounter (Primary Dx); Acute midline low back pain without sciatica; Other acute pulmonary embolism without acute cor pulmonale (CMS-HCC); Iron deficiency anemia, unspecified; Iron malabsorption; Crohn's disease of both small and large intestine with intestinal obstruction (CMS-HCC)Start: 08-02-2024 End: 12-68-7157Gbiwgurdd encounterHilary Aviles APRN-PATROL MAN Work Phone: [facility] Physicians Family MedicineStart: 07-15-2024 End: 64-33-5720sehrqgmobnFFR RAMEYNot AvailableStart: 07-15-2024 End: 21-49-2684Lzvmlyvnng care visitYaquelin BELCHER Work Phone: [facility] OBComment on above:6 weeks follow-upStart: 07-09-2024 End: 37-30-4651EtskpyChuy Davis [facility] Physicians Benign Hematology Comment on above:Other iron deficiency anemia (Primary Dx)Start: 07-08-2024 End: 56-29-0209Xttacm outpatient visit 15 minutesCee Turner ACTING INSTRUCTOR-PATROL MAN Work Phone: [facility] Physicians Vascular SurgeryComment on above: Other acute pulmonary embolism without acute cor pulmonale (CMS-HCC) (Primary Dx); Acute deep vein thrombosis (DVT) of distal end of right lower extremity (CMS-HCC)Start: 07-08-2024 End: 31-74-5258nnhtrjsozyPWBHEDarlyn Aquino [facility] Hospitaltart: 07-06-2024 End: 45-78-0786Lcifdw follow up visit related to original Claudia Wilson MD Work Phone: [facility] Physicians General Surgery-TraumaComment on above:S/P small bowel resection (Primary Dx)Start: 07-06-2024 End: 05-64-6525ngpjddvzliYQOHTVZ A [facility] HospitalStart: 07-03-2024 End: 48-27-5326Gqtykkvns department patient visitDAVID Magen KAYProMedica Stout HospitalStart: 06-28-2024 End: 99-45-8595atwftzmjicAvt Dhc Infusion Chair [address] [place] [address] Digestive [facility] InfusionComment on above:Crohn's disease of both small and large intestine with intestinal obstruction (CMS-HCC) (Primary Dx)Start: 06-28-2024 End: 66-90-1883Pmkbxi outpatient visit 40 Anderson Montiel MD Work Phone: [facility], A Department of [facility] HospitalComment on above:Crohn's disease of both small and large intestine with intestinal obstruction (CMS-HCC) (Primary Dx); Iron malabsorption; Vitamin B 12 deficiency; Iron deficiency anemia, unspecified; History of small bowel obstructionStart: 06-28-2024 End: 65-90-3508xffqzoqodlSPLWOC Magen [facility] Centerca [facility] HospitalStart: 06-21-2024 End: 72-53-9166Llpsnqw encounter statusNorma Kinney MD Work Phone: [facility] SystemStart: 06-21-2024 End: 78-00-1450Gtqvbv follow up visit related to original Coy Kinney MD Work Phone: [phone] [place] [address] Services - Women's ServicesComment on above:Surgical followup (Primary Dx); BP check; History of severe pre-eclampsiaStart: 06-21-2024 End: 54-29-2908vlnikvmhkiLBWJUDOPT L VAN HOOKTrinity Health System [facility] HospitalStart: 06-16-2024 End: 36-84-6812Tiuvxyolxd and management of inpatientDAVID A SIDNEYProMedica Stout HospitalStart: 06-16-2024 End: 24-74-1495Lnxrxjxiv department patient visitJUDITH Magen [facility]PITALSAur[facility] in Summitca Stout HospitalStart: 06-14-2024 End: 42-87-9468rgwommeaefRLJQAOZ A AL-JUBOURIProMedica Boggs HospitalStart: 06-14-2024 End: 45-53-5089Jmersi follow up visit related to original Coy Kinney MD Work Phone: [facility] Services - Women's ServicesComment on above:Surgical followup (Primary Dx)S/P small bowel resection (Primary Dx) Start: 06-14-2024 End: 33-67-9472fyvzbmntoyNBQWPDEZL L VAN HOOKProMedica Boggs HospitalStart: 06-04-2024 End: 19-38-4709Gyfhwcotcy and management of inpatientJOSHUA MOSTALESProMedica Boggs HospitalStart: 06-03-2024 End: 55-28-0811Roidowmsds and management of inpatientJUDITH A TRACI [facility] HospitalStart: 06-02-2024 End: 61-95-9405Pklxbbpdyk and management of inpatientJAY W HAMMERLINGProMedica Boggs HospitalStart: 06-02-2024 End: 74-15-8936idbbefxdslEREEUJ A SCHUESSLERProMedica Boggs HospitalStart: 06-01-2024 End: 13-83-1618Micbmywkvi and management of inpatientKRISTI PONDProMedica Boggs HospitalStart: 06-01-2024 End: 20-92-9873Xufqpgyzwh and management of inpatientJUDITH A TRACI [facility] HospitalStart: 05-31-2024 End: 68-77-9368Uefnznddc [facility] Systemjulieta Harley PA-C Work Phone: [facility] HealthcareStart: 05-31-2024 End: 66-26-9812Ztlntchtlj and management of inpatientJOSHUA MOSTALESProMedica Boggs HospitalStart: 05-31-2024 End: 01-89-7163Tktbggmffl and management of inpatientNOAH E WOROBETZProMedica Boggs HospitalStart: 05-31-2024 End: 77-51-5845Vfvxxylcnm and management of inpatientTANNICE FOGARTHYProMedica Boggs HospitalStart: 55-99-0967egtzhktbmoDKFXYVR [facility] Ambulatory PPGStart: 05-30-2024 End: 72-16-8733Emccopclbn and management of inpatientROBERT N [facility] HospitalStart: 35-34-4310dkcdjvhkowKZKPYS A [facility] Ambulatory PPGStart: 05-30-2024 End: 68-06-6298Lrhbgtaqd Result EncounterCorey Courtney DO Work Phone: [facility] External Department UnsolicitedStart: 05-30-2024 End: 50-06-5455Vnvrgmmwr Result EncounterCorey Courtney DO Work Phone: [facility] External Department UnsolicitedStart: 05-28-2024 End: 47-55-0747Goetkhwtw Result EncounterCorey Courtney DO Work Phone: [facility] External Department UnsolicitedStart: 05-28-2024 End: 02-63-1770Vaaxwfwje Result EncounterCorey Courtney DO Work Phone: NOEO External Department UnsolicitedStart: 05-27-2024 End: 76-49-0231Unbffkqen Result EncounterCorey Courtney DO Work Phone: [facility] External Department UnsolicitedStart: 05-27-2024 End: 45-71-0779Znwfywbha Result EncounterCorey Courtney DO Work Phone: NOTM External Department UnsolicitedStart: 05-26-2024 End: 29-61-0619ozywkcxzgeLCNSK FAZIONot AvailableStart: 05-26-2024 End: 48-35-7917Qfoaiw flowsheetCorey Courtney DO Work Phone: [facility] BCP OBStart: 05-26-2024 End: 96-63-2243Nbqwiq flowsheetCorey Courtney DO Work Phone: [facility] BCP OBStart: 05-26-2024 End: 84-10-1415Hlygrrom flow sheetCorey Courtney DO Work Phone: [facility] BCP OBComment on above:Third trimester ; History of Crohn's disease; 29 weeks gestation of pregnancyStart: 05-24-2024 End: 05-89-5516bojzkzeafsYvf [facility] Infusion Chair 3PSaint [facility] Physicians Digestive [facility] InfusionComment on above:Crohn's disease of both small and large intestine with intestinal obstruction (CMS-HCC) (Primary Dx)Start: 05-14-2024 End: 09-71-6905Wyljmfywm encounterMichael Russ Campbellik DO Work Phone: [facility] MedicineStart: 05-12-2024 End: 59-79-9094yvajiemtgkFRY RAMEYNot AvailableStart: 05-12-2024 End: 23-51-6777Qixzxrbi flow sheetYaquelin BELCHER Work Phone: [facility] BCP OBComment on above:Second trimester ; 27 weeks gestation of pregnancyStart: 05-12-2024 End: 93-60-1726Ietvzj Kwan BELCHER Work Phone: noMS BCP OBStart: 05-12-2024 End: 66-55-9226Fgbsry flowsShima BELCHER Work Phone: [facility] BCP OBStart: 05-12-2024 End: 96-29-4486wylwytfsdrBOZLRWZ D BARBARAProMedica Campbellsburg HospitalStart: 05-10-2024 End: 79-39-5523Fdtduvsqk Result EncounterCorey Courtney DO Work Phone: [facility] External Department UnsolicitedStart: 05-10-2024 End: 07-87-2350Fcpxjozut Result EncounterCorey Courtney DO Work Phone: [facility] External Department UnsolicitedStart: 05-08-2024 End: 02-60-1562Auwssspre Result EncounterCorey Courtney DO Work Phone: [facility] External Department UnsolicitedStart: 05-08-2024 End: 27-35-4615Ekpgrbvmj Result EncounterCorey Courtney DO Work Phone: [facility] External Department UnsolicitedStart: 05-06-2024 End: 42-43-2666cgtwvwxqlaMRCXMJOConfluence Health Ambulatory PPGStart: 05-06-2024 End: 13-85-6257Aubtpc outpatient visit 25 minutesBeacham [facility] Hospital DO Work Phone: [facility] Physicians Family MedicineComment on above: HTN complicating peripregnancy, antepartum, second trimester (Primary Dx); 26 weeks gestation of ; Anemia affecting fourth ; HTN, goal below 130/80Start: 05-04-2024 End: 07-25-2072Ovfbd Payal Tomas MD Work Phone: [phone]-Kuzar [facility] Start: 04-26-2024 End: 83-38-8446Vmqbtd flowsheetCorey Courtney DO Work Phone: [facility] BCP OBStart: 04-26-2024 End: 84-52-7371Xekevi flowsheetCorey Courtney DO Work Phone: [facility] BCP OBStart: 04-26-2024 End: 84-26-3924Itgakkos flow sheetCorey Courtney DO Work Phone: [facility] BCP OBComment on above:Second trimester ; 23 weeks gestation of ; Crohn's disease with complication, unspecified gastrointestinal tract location (CMS/HCC)Start: 04-26-2024 End: 00-49-9059gbllkcegyiRANKJ FAZIONot AvailableStart: 04-23-2024 End: 68-87-6814Zzzhye Rosita Montiel MD Work Phone: [facility] Physicians Digestive HealthcareComment on above:Ulcerative colitis with other complication, unspecified location (CMS-HCC) (Primary Dx)Start: 04-22-2024 End: 33-63-2849Xzxgap Rosita Montiel MD Work Phone: [facility] Digestive HealthcareComment on above:Crohn's disease of colon with other complication (CMS-HCC) (Primary Dx) Start: 04-21-2024 End: 94-26-6995jbskfrwcgdZTE RAMEYNot AvailableStart: 04-20-2024 End: 25-95-8156Cmwnbd OnlySharda Montiel MD Work Phone: [facility] Dig[facility], A Department of [facility] HospitalStart: 04-19-2024 End: 51-94-5578Oanoehial encounterSsarah Montiel MD Work Phone: [facility] Digestive HealthcareStart: 04-19-2024 End: 61-34-0006lldqojybsnSEXIDA A [facility] Easttart: 04-19-2024 End: 57-94-9030Osmkal outpatient visit 40 minutesSharda Montiel MD Work Phone: [facility] Physicians Digestive HealthcareComment on above:Thrombocytopenia (CMS-HCC) (Primary Dx); Crohn's disease with complication, unspecified gastrointestinal tract location (CMS-HCC)Start: 04-19-2024 End: 53-06-9778euwzpcttvrBho [facility] Infusion Chair 1PS[facility] Physicians Digestive HealthcareComment on above:Crohn's disease of both small and large intestine with intestinal obstruction (CMS-HCC) (Primary Dx)Start: 04-14-2024 End: 07-45-8155Carxil flowsheetCorey Courtney DO Work Phone: [facility] BCP OBStart: 04-14-2024 End: 30-30-3962Dyzbbh flowsheetCorey Courtney DO Work Phone: [facility] BCP OBStart: 04-14-2024 End: 66-56-6106hwckguoeuiEIRXB FAZIONot AvailableStart: 04-14-2024 End: 19-73-4409Slgbuxlg flow sheetCorey Courtney DO Work Phone: [facility] OBComment on above:Diabetes mellitus screening; Second trimester ; 23 weeks gestation of pregnancyStart: 03-24-2024 End: 28-74-8355Pvysxfdjr Result EncounterCorey Courtney DO Work Phone: [facility] External Department UnsolicitedStart: 03-24-2024 End: 02-20-0071Trkdgjoem Result EncounterCorey Courtney DO Work Phone: [facility] External Department UnsolicitedStart: 03-17-2024 End: 27-13-2395Ookeha flowsShima BELCHER Work Phone: [facility] BCP OBStart: 03-17-2024 End: 44-85-4671Isgqhq flowsheetYaquelin BELCHER Work Phone: [facility] BCP OBStart: 03-17-2024 End: 92-11-3820Etilohgf Result EncounterYaquelin BELCHER Work Phone: [facility] External Department UnsolicitedStart: 03-17-2024 End: 83-77-8627vsqhrvifcpXKN Mynor AvailableStart: 03-17-2024 End: 73-76-5028Caffzeub flow sheetYaquelin BELCHER Work Phone: [facility] OBComment on above:Second trimester ; 19 weeks gestation of ; Vaginal discharge; STD exposure; Screening, , for anatomic surveyStart: 03-11-2024 End: 08-95-3495Pvondadrs Result EncounterCorey Courtney DO Work Phone: [facility] External Department UnsolicitedStart: 03-11-2024 End: 09-50-1596Xpllnrdba Result EncounterCorey Courtney DO Work Phone: n[facility] External Department UnsolicitedStart: 03-08-2024 End: 23-79-7690zmidefnyttEct Dhc Infusion Chair 1PSaint [facility] Physicians Digestive HealthcareComment on above:Crohn's disease of both small and large intestine with intestinal obstruction (CMS-HCC) (Primary Dx)Start: 02-18-2024 End: 17-59-2675Gwxwag flowsheetCorey Courtney DO Work Phone: NOPV BCP OBStart: 02-18-2024 End: 11-52-5451Dyigtl flowsheetCorey Courtney DO Work Phone: [facility] BCP OBStart: 02-18-2024 End: 23-67-7235gyejgalqxyMODKD FAZIONot AvailableStart: 02-18-2024 End: 76-29-1723Bljegsrl flow sheetCorey Courtney DO Work Phone: [facility] BCP OBComment on above:Second trimester ; 15 weeks gestation of ; H/O oligohydramnios in prior , currently Start: 02-14-2024 End: 10-61-4913Hynlnrwxz Result EncounterCorey Courtney DO Work Phone: [facility] External Department UnsolicitedStart: 02-14-2024 End: 36-21-3465Oyhlwidlg Result EncounterCorey Courtney DO Work Phone: [facility] External Department UnsolicitedStart: 02-03-2024 End: 75-99-0117Pmyijy Rosita Montiel MD Work Phone: [facility] HealthcareComment on above:Therapeutic drug monitoring (Primary Dx)Start: 01-31-2024 End: 88-08-4338Tazakskcc department patient visitJUDITH A SCHUESSLERProMedica Campbellsburg HospitalStart: 01-26-2024 End: 69-66-7937xkskqdwoweEZMLNW A SCHUESSLERProMedica Boggs HospitalStart: 01-26-2024 End: 85-65-3888uorqzpnuphMDUDWT A SCHUESSLERProMedica Boggs HospitalStart: 01-23-2024 End: 39-34-2962Qoifnudis Result EncounterCorey Courtney DO Work Phone: noms External Department UnsolicitedStart: 01-23-2024 End: 17-10-4549Iegmlqwwl Result EncounterCorey Courtney DO Work Phone: noms External Department UnsolicitedStart: 01-23-2024 End: 62-22-4506muuxzgexgaDEQ RAMEYNot AvailableStart: 01-23-2024 End: 54-59-2138Nwypjd outpatient visit 5 minutesNoms Bcp Ob Courtney NurseNOMS BCP OBComment on above:GA: 54k3bOdhro: 01-13-2024 End: 82-15-7296Zepxts OnlyChasity Magen Josh MILLER-LUIGI Work Phone: [facility] Medical Oncology Comment on above:Iron deficiency anemia due to chronic blood loss (Primary Dx); Iron malabsorption; Iron deficiency anemia, unspecifiedStart: 01-06-2024 End: 04-12-6425Yacbdk OnlyChasity Magen Josh MILLER-LUIGI Work Phone: [facility] OncologyComment on above:Iron deficiency anemia due to chronic blood loss (Primary Dx); Iron malabsorption; Iron deficiency anemia, unspecifiedStart: 01-03-2024 End: 88-36-8214Hjhdrrpsv department patient visitASCENSION COL[facility] Magen [facility]art: 12-17-2023 End: 34-32-7473Qxhcvwcni Nikolai Zarco [facility] Physicians Digestive HealthcareStart: 12-12-2023 End: 16-14-3785ootceszueuJfq Dhc Infusion Chair [address] [place] [address] Digestive HealthcareComment on above:Crohn's disease of both small and large intestine with intestinal obstruction (CMS-HCC) (Primary Dx)Start: 12-01-2023 End: 12-34-6501Zpzzzw outpatient visit 25 minutesRee Moreno APRN-LUIGI Work Phone: [facility] OncologyComment on above:Iron deficiency (Primary Dx); Crohn's disease of both small and large intestine with intestinal obstruction (CMS-HCC); Chronic fatigue; Leg cramps; Noncompliance; Iron deficiency anemia due to chronic blood loss; Iron malabsorption; Iron deficiency anemia, unspecifiedStart: 10-31-2023 End: 64-95-7251zdgvxdwhpyOgm Dhc Infusion Chair [address] [place] [address] Digestive HealthcareComment on above:Crohn's disease of both small and large intestine with intestinal obstruction (CMS-HCC) (Primary Dx)Start: 10-31-2023 End: 49-31-2921Ccmqar outpatient visit 25 minutesSharda Montiel MD Work Phone: [facility] Physicians Digestive HealthcareComment on above:Therapeutic drug monitoring (Primary Dx); Crohn's disease of both small and large intestine with other complication (CMS-HCC)Start: 09-17-2023 End: 81-54-2845Ciighi outpatient visit 25 minutesJudmiguel angel Aviles ACTING INSTRUCTOR-PATROL MAN Work Phone: [facility] Physicians Family MedicineComment on above: Current moderate episode of major depressive disorder without prior episode (CMS-HCC) (Primary Dx); Crohn's disease of both small and large intestine with intestinal obstruction (CMS-HCC)Start: 09-15-2023 End: 24-93-0909Uxrqrskao encounterSsarah Montiel MD Work Phone: [facility] Digestive HealthcareStart: 09-15-2023 End: 05-49-9013arblnjqglkRpd Dhc Infusion Chair 3PSaint [facility] Physicians Digestive HealthcareComment on above:Crohn's disease of both small and large intestine with intestinal obstruction (CMS-HCC) (Primary Dx)Start: 09-03-2023 End: 09-22-7280Aruynvtfa encounterJudmiguel angel Aviles ACTING INSTRUCTOR-PATROL MAN Work Phone: [facility] Family MedicineStart: 09-03-2023 End: 61-06-4060Faxn/qhp telephone evaluation 11-20 minHilary Aviles ACTING INSTRUCTOR-PATROL MAN Work Phone: [facility] Family MedicineComment on above: Reactive depression (Primary Dx)Start: 08-20-2023 End: 70-42-9942Fesarr outpatient visit 25 minutesJudmiguel angel Aviles ACTING INSTRUCTOR-PATROL MAN Work Phone: [facility] Physicians Family MedicineComment on above: Anxiety (Primary Dx)Start: 08-04-2023 End: 52-67-1300oniyablrgpElr Dhc Infusion Chair 2PSaint [facility] Physicians Digestive HealthcareComment on above:Crohn's disease of both small and large intestine with intestinal obstruction (CMS-HCC) (Primary Dx)Start: 06-18-2023 End: 57-66-9252Lfxvpxzxl encounterCrystal Milka CMAProMedica Physicians Digestive HealthcareStart: 06-10-2023 End: 35-66-6735Iijjcmskf encounterSpaulina ARELLANOSaint Francis Medical Center Physicians Digestive HealthcareStart: 06-09-2023 End: 60-47-1887Pvmpam OnlyDeisy Vera [facility] Physicians Digestive HealthcareComment on above:Crohn's disease of both small and large intestine with intestinal obstruction (CMS-HCC) (Primary Dx)Start: 04-21-2023 Telephone encounterSsarah Montiel MD Work Phone: [facility] Phys[facility] Digestive HealthcareStart: 04-21-2023 End: 56-10-8449tcodmmhvedZzi Dhc Infusion Chair 4[facility] Physicians Digestive HealthcareComment on above:Crohn's disease of both small and large intestine with intestinal obstruction (CMS-HCC) (Primary Dx)Start: 27-05-9213Tcygkimyu encounterMofrank ARELLANOSaint Francis Medical Center Physicians Digestive HealthcareStart: 35-22-3910Zqwtnlzyx encounterMofrank Vick Physicians Digestive HealthcareStart: 02-20-2023 End: 67-17-5234Befdqo outpatient visit 25 minutesMujewel Anders MD Work Phone: [facility] Physicians Family MedicineComment on above: Reactive airway disease with acute exacerbation, unspecified asthma severity, unspecified whether persistent (Primary Dx); Shortness of breath; COVID-19; Sinusitis, unspecified chronicity, unspecified locationStart: 02-17-2023 End: 56-22-7615bcckixphtjXet Dhc Infusion Chair 3ProMedst. vincent[facility] Physicians Digestive HealthcareComment on above:Crohn's disease of both small and large intestine with intestinal obstruction (CMS-HCC) (Primary Dx)Start: 02-06-2023 End: 73-73-6800mwqjlizwidWif Infusion Chair 3Ddamien Richey [facility] - Medical OncologyComment on above:Iron deficiency anemia due to chronic blood loss (Primary Dx); Iron deficiency anemia, unspecified; Iron malabsorptionStart: 04-30-2022 End: 54-38-0396iivbhmieclTLRZLGV KARASIKFacility:U2Caznp: 12-03-2016 End: 60-19-8678MwjvrfqiygITFPKWR J [facility]bleStart: 11-19-2016 End: 59-76-0928TqwggicacpGLJQAQO J ADAMOWICZTrinity Health System East CampusStart: 10-29-2016 End: 10-46-3033CifqznzbavBQDKIFH J ADAMOWDiley Ridge Medical CenterStart: 10-01-2016 End: 11-01-2933LoilscqwpjXMQINBK J [facility]bleStart: 08-29-2016 End: 51-29-9101MbnqhnpowoHTAEFYA J [facility] Procedures DateProcedureProcedure DetailPerforming ClinicianStart: 19-44-7335Llfdf depression screening assessmentAssumpta Corie ACTING INSTRUCTOR-PATROL MAN Work Phone: Start: 61-51-4788FWK,APTIMA HPV,AGE GDLNKrhalima Simmons NUCLEAR WEAPONS MECHANICAL SPECIALIST Work Phone: Start: 45-58-9626Hoyfzkcaftr observation [Identifier] in Cervix by Cyto stainWlc 1Start: 59-11-9538Ywnnm depression screening assessmentHilary Aviles ACTING INSTRUCTOR-PATROL MAN Work Phone: Start: 61-82-2588Vxkng dip stick/tablet rgnt non-auto w/o micrscpAmy Ozzie BELCHER Work Phone: Start: 15-39-8378Vjffu depression screening assessment Padmini Wilson MD Work Phone: Start: 04-14-1119Kfqys depression screening assessment Norma Kinney MD Work Phone: start: 13-70-3220Qfatifppwu carePostpartum Care NORMA KINNEYStart: 96-98-0832Odyxz depression screening assessment Norma Kinney MD Work Phone: start: 31-42-8659Bziju depression screening assessment Chandni Harley PA-C Work Phone: Start: 94-63-5480TAR CBC WITH AUTO DIFFCorey Courtney DO Work Phone: Start: 34-31-1939ZJA CBC WITH AUTO DIFFCorey Courtney DO Work Phone: Start: 84-40-8329QOT CBC WITH AUTO DIFFCorey Courtney DO Work Phone: Start: 94-92-6421Pbflh dip stick/tablet rgnt non-auto w/o micrscAce BELCHER Work Phone: Start: 68-99-5306EJR CBC WITH AUTO DIFFCorey Courtney DO Work Phone: Start: 13-84-9975HZTDIEQ TOLERANCE 3 HOURCorey Courtney DO Work Phone: Start: 49-54-6730Bfjvx depression screening assessment Raulito Jimenez DO Work Phone: Start: 57-70-6395Udqjw dip stick/tablet rgnt non-auto w/o micrscpCorey Courtney DO Work Phone: Start: 94-66-2074Imsxxf-up visitFollow-upSAME B ALMADANIStart: 80-97-2328RX OB ANATOMYCorey Courtney DO Work Phone: Start: 44-04-7912AQ OB CERVICAL LENGTHCorey Courtney DO Work Phone: Start: 99-10-4370ENSBWMJN LAB TESTNot In System Ref ProvStart: 85-63-3040RLKUYPQSCJ OFFICENot In System Ref ProvStart: 03-17-2024 RECURRENT VAGINITIS (HTRX)Yaquelin BELCHER Work Phone: Start: 95-21-5234OI OB CERVICAL LENGTHCorey Courtney DO Work Phone: Start: 61-98-5051Mjgkg dip stick/tablet rgnt non-auto w/o micrscpCorey Courtney DO Work Phone: Start: 92-57-3958Qphuakmz test non-treponemal antibody qualNot In System Ref ProvStart: 92-09-7604TBS CBC WITH AUTO DIFFCorey Courtney DO Work Phone: Start: 76-34-6910Oqjks dip stick/tablet rgnt non-auto w/o micrscpCorey Courtney DO Work Phone: Start: 61-35-1475MZ OB TRANSVAGINALCorey Courtney DO Work Phone: Start: 67-46-8113Tkmwk depression screening assessment Hilary Aviles ACTING INSTRUCTOR-PATROL MAN Work Phone: Start: 75-28-8223Vmkuqmmkpno observation [Identifier] in Cervix by Sandor Montiel MD Work Phone: Start: 85-59-2320Rupoi depression screening assessment Hilary Aviles ACTING INSTRUCTOR-PATROL MAN Work Phone: Start: 94-90-8205Wmipd depression screening assessment Pfo 3 Plan of Treatment DateCare ActivityDetailAuthorStart: 73-33-2453Failzsslj for malignant neoplasm of cervixPap SmearProHarrison Community Hospital SystemStart: 45-70-1741Fmahrflki for malignant neoplasm of cervixPap SmearSouthern Ohio Medical Center SystemStart: 11-12-2025 Adult BMI ScreeningAdult BMI ScreeningSouthern Ohio Medical Center SystemStart: 11-12-2025 Depression ScreeningDepression ScreeningSouthern Ohio Medical Center SystemStart: 11-12-2025 Tobacco ScreeningTobacco ScreeningSouthern Ohio Medical Center SystemStart: 17-69-3465Szvoj BMI ScreeningAdult BMI ScreeningProHarrison Community Hospital SystemStart: 10-24-2025 End: 36-58-8999Eurizsx encounter amhkwvegw80/14/2026 1:00 PM EDT Procedure Visit [facility] [address] [place] [address] Parish Valdez DO [address] [facility] [address] [place] [address] NOMJuan Ramon [place] OBGYNStart: 26-38-0486Fhogl BMI ScreeningAdult BMI ScreeningProHarrison Community Hospital SystemStart: 40-73-3648Pyxnvgk ScreeningTobacco ScreeningProMedica Health SystemStart: 70-13-1660Whujh BMI ScreeningAdult BMI ScreeningProMedica Health SystemStart: 78-12-5432Ijsdass ScreeningTobacco ScreeningProMedica Health SystemStart: 75-31-5684Mbpzh BMI ScreeningAdult BMI ScreeningProMedica Health SystemStart: 86-86-5667Nlojf BMI ScreeningAdult BMI ScreeningProMedica Health SystemStart: 85-42-6508Zlmrcubcae ScreeningDepression ScreeningProMedica Health SystemStart: 76-91-0112Xquroiy ScreeningTobacco ScreeningProMedica Health SystemStart: 94-96-0603Cacon BMI ScreeningAdult BMI ScreeningProMedica Health SystemStart: 15-06-5993Kizgrkd ScreeningTobacco ScreeningProMedica Health SystemStart: 07-28-5775Kxqzfccabl ScreeningDepression ScreeningProMedica Health SystemStart: 24-53-3134Ocwsh BMI ScreeningAdult BMI ScreeningProMedica Health SystemStart: 32-89-5664Ytphfxo ScreeningTobacco ScreeningProMedica Health SystemStart: 80-01-2688Omvfvpenoo ScreeningDepression ScreeningProMedica Health SystemStart: 46-41-2959Zwgggok ScreeningTobacco ScreeningProMedica Health SystemStart: 96-42-5592Uwfpk BMI ScreeningAdult BMI ScreeningProMedica Health SystemStart: 88-72-6098Qovbdneodo ScreeningDepression ScreeningProMedica Health SystemStart: 64-66-6159Bubqfrt ScreeningTobacco ScreeningProMedica Health SystemStart: 87-93-3351Xnxiy BMI ScreeningAdult BMI ScreeningProMedica Health SystemStart: 37-52-9353Wqfibldsrn ScreeningDepression ScreeningProMedica Health SystemStart: 08-48-9820Rkqmcry ScreeningTobacco ScreeningProMedica Health SystemStart: 05-26-2025 End: 20-57-9568Gltskqw encounter oozejgdet76/16/2026 10:30 AM EDT Procedure Visit JESSICA TAYLOR [address] [place] [address] [place], [place] Parish Valdez, [address] [place] [address] JESSICA Jonesue OBGYNStart: 71-75-4675Mdduo BMI ScreeningAdult BMI ScreeningProW[facility] Hospitalca Health SystemStart: 05-06-2025 Depression ScreeningDepression ScreeningProW[facility] Hospitalca Health SystemStart: 05-06-2025 Tobacco ScreeningTobacco ScreeningProMedica Health SystemStart: 08-40-8041Iypmc BMI ScreeningAdult BMI ScreeningProW[facility]sworth-[facility] Hospitalca Health SystemStart: 57-05-9560Kbrwqok ScreeningTobacco ScreeningProWadsworth-Rittman Hospitalca [facility] SystemStart: 03-09-2025 End: 02-84-8869tgmkvttvqe75/28/2026 1:00 PM EST Infusion [facility], A Department of [address] [address] NayNdjqkbEast [facility], A Department of [facility] HospitalStart: 09-42-4318Ihwbq BMI ScreeningAdult BMI ScreeningProHarrison Community Hospital SystemStart: 06-50-0037Odrbprt ScreeningTobacco ScreeningSouthern [facility] SystemStart: 01-26-2025 End: 35-83-8577cssctbhpgk10/17/2025 1:00 PM EST Infusion [facility], A Department of [address] [address] QkcAdaxpkEast [facility], A Department of [facility] Hospitaltart: 01-11-2025 End: 22-40-4157Jkirndl encounter procedureProMedica Physicians Vascular Surgery Start: 01-10-2025 End: 13-18-9063Idppxud encounter djowitipv45/01/2025 9:00 AM EST Office Visit [facility] Oncology [address] [place] [phone] Ree Moreno, ACTING INSTRUCTOR-PATROL MAN [address] [place] [address], [address] [address] [facility] - Medical OncologyStart: 01-08-2025 End: 05-87-3350L-DimerD-Dimer Lab Routine Other acute pulmonary embolism without acute cor pulmonale (CMS-HCC) Acute deepvein thrombosis (DVT) of distal end of right lower extremity (CMS-HCC) Expected: 01/08/2025 (Approximate), Expires: 07/08/2025[facility] Work Phone: Comment on above:Expected: 01/08/2025 (Approximate), Expires: 07/08/2025Start: 01-08-2025 End: 93-77-4604dyzrbskhamMxjKazfbcOhioHealth [facility] - LabStart: 08-79-2454Qpcqu BMI ScreeningAdult BMI ScreeningSouthern Ohio Medical Center SystemStart: 39-26-3076Xemznco ScreeningTobacco ScreeningAtrium Healthtart: 12-31-2024 End: 80-46-7384Ptjjhpx encounter gwhbhxpco40/21/2025 1:30 PM EST Office Visit [facility], A Department of [facility] [address] [phone] Josephine Turner PA [address] [facility] [address] [place] [address] [facility], A Department of [facility] Hospitaltart: 12-15-2024 End: 95-48-9699wzrvpiebjbQggKvwrrt [facility] Infusion Start: 40-98-9376Eaquz BMI ScreeningAdult BMI ScreeningTogus VA Medical Center Start: 12-10-2024 End: 74-25-0525Rhaltyy encounter kommymdxw58/31/2025 9:15 AM EDT Office Visit [facility] [address] [place] [address] Mj Pizarro MD [address] [place] [address] [address] [place] [address] [facility] - Medical OncologyStart: 12-02-2024 End: 20-14-5518Kdyqtgy encounter cudyxzsyg84/23/2025 10:15 AM EDT Office Visit [facility] Medical Oncology [address] [place] [address] Mj Pizarro, [address] [facility] [address] [place] [address] [facility] - Medical OncologyStart: 11-22-2024 End: 45-39-9204Yzlxyrq encounter iwdwjvjsk73/13/2025 3:10 PM EDT Office Visit JESSICA TAYLOR [address] [place] [address] Parish Valdez DO [address] [facility] [address] [place], [place] [phone] NOMJuan Ramon [place] OBGYNStart: 11-22-2024 End: 85-32-4247xQWQ in Blood by Coagulation assayAPTT Lab Routine Menorrhagia with regular cycle Expected: 11/22/2024 (Approximate), Expires: 11/22/2025NOAL HealthcareComment on above:Expected: 11/22/2024 (Approximate), Expires: 11/22/2025Start: 11-22-2024 End: 90-90-3442LS PelvisUS Pelvis w/ TV Imaging Routine Menorrhagia with regular cycle Expected: 11/22/2024, Expires: 11/22/2025NOAL HealthcareComment on above: Expected: 11/22/2024, Expires: 11/22/2025Start: 11-12-2024 End: 06-24-4050Xugeykc encounter tsbirergu51/03/2025 8:20 AM EDT Office Visit [facility] [address] [place] [phone] Sravan Fontenot N, ACTING INSTRUCTOR-PATROL MAN [address] [place] [address] [facility] Family MedicineStart: 11-03-2024 End: 81-08-8435wkfrvyxjmx91/24/2025 1:00 PM EDT Infusion [facility] Infusion [address] [address] [facility] InfusionStart: 11-01-2024 End: 22-53-2276outbjtiepi35/22/2025 10:00 AM EDT Infusion [facility] Infusion [address] [address] [facility] InfusionStart: 10-30-2024 Adult BMI ScreeningAdult BMI ScreeningProHarrison Community Hospital SystemStart: 10-30-2024 Tobacco ScreeningTobacco ScreeningProHarrison Community Hospital SystemStart: 10-18-2024 End: 83-64-1916Jvotbqu encounter lmljyejyw95/08/2025 2:30 PM EDT Procedure Visit JESSICA TAYLOR [address] [facility] [place] [place] [address] Tierney Simmons, NUCLEAR WEAPONS MECHANICAL SPECIALIST [address] [place] [address] Brenda TAYLOR Comment on above:ArrivedStart: 39-83-9395Ikhiggcpm vaccinationInfluenza Vaccine [facility] SystemStart: 10-04-2024 End: 33-55-1086Hsmfnez encounter yaujsjyme45/25/2025 7:40 AM EDT Office Visit [facility] [address] [place] [address] Hilary Aviles, PAUL-PATROL MAN [address] [facility] [place] [address] [facility] Family MedicineStart: 09-27-2024 End: 81-79-2806Dkafxqq encounter pqvamdsxn35/18/2025 8:00 AM EDT Office Visit [facility], A Department of [facility] [address] [place] [address] [address] [place] [address] Sharda Montiel MD [address] [facility], [address] [place] [address] [facility], A Department of [facility] Start: 09-20-2024 End: 91-62-3039Owcgvod encounter fvchfpmex74/11/2025 3:00 PM EDT Office Visit [facility] [address] [facility] [place] [place] [address] Yaquelin Horne PA [address] [facility] [address] [place], [place] [address] NOMS BCP OBStart: 09-20-2024 End: 08-32-0100szcnbvvqug33/11/2025 10:00 AM EDT Infusion [facility] Infusion [address] [place] [address] [address] [place] [address] [phone] [facility] InfusionStart: 09-16-2024 Adult BMI ScreeningAdult BMI ScreeningProWadsworth-Rittman Hospitalca Health SystemStart: 09-16-2024 Depression ScreeningDepression ScreeningKettering Health Behavioral Medical Centerca Health SystemStart: 09-16-2024 Tobacco ScreeningTobacco ScreeningProWadsworth-Rittman Hospitalca Health SystemStart: 34-93-9618Iaqtr BMI ScreeningAdult BMI ScreeningProWadsworth-Rittman Hospitalca Health SystemStart: 50-22-3737Phkxjxp ScreeningTobacco ScreeningKettering Health Behavioral Medical Centerca Health SystemStart: 08-30-2024 End: 46-15-7569Ygdkztg encounter vbyygchbz85/21/2025 2:30 PM EDT Appointment [facility] [address] [place] [phone] Lumbar painProMedica [facility] Comment on above:Lumbar painStart: 08-25-2024 End: 50-55-4120fjzrusenjx08/16/2025 9:00 AM EDT Infusion [facility] - Medical Oncology [address] [place] [phone] [facility] - Medical OncologyStart: 87-42-9223Plyyf BMI ScreeningAdult BMI ScreeningProDecatur [facility] Health SystemStart: 26-79-2321Lbrqhxhhcp ScreeningDepression ScreeningProWadsworth-Rittman Hospitalca Health SystemStart: 77-77-2968Tqkidmc ScreeningTobacco ScreeningProWadsworth-Rittman Hospitalca [facility] SystemStart: 08-09-2024 End: 58-49-7542zlubhwrudg40/30/2025 10:00 AM EDT Infusion [facility] Infusion [address] [address] [phone] [facility] InfusionStart: 08-03-2024 Adult BMI ScreeningAdult BMI ScreeningProHarrison Community Hospital SystemStart: 08-03-2024 End: 28-77-3539Uiicslz encounter iduxyjevh76/24/2025 9:30 AM EDT Office Visit [facility] [address] [place] [address] Jayjay Clayton, ACTING INSTRUCTOR-PATROL MAN [address] [place] [address] [facility] Benign HematologyStart: 07-08-2024 End: 04-22-0215Gedumfy encounter djwyoqxpq58/29/2025 2:15 PM EDT Office Visit [facility] [address] [place] [address] Cee Turner, ACTING INSTRUCTOR-PATROL MAN [address] [facility], [address] [place], [place] [phone] (Work) [facility] Start: 07-06-2024 End: 19-38-3536Yabgycv encounter cpnaxztgb88/27/2025 12:00 PM EDT Office Visit [facility]-Trauma [address] [place] [address] Padmini Wilson MD [address] [place] [address] [facility] General Surgery-TraumaStart: 06-28-2024 End: 55-47-4051Pesujdu encounter fkszokbdc21/19/2025 11:00 AM EDT Office Visit [facility], A Department of [address] [place] [address] Sharda Montiel MD [address] [facility] [address] [place] [address] [facility], Department of [facility] Start: 06-28-2024 End: 83-23-6521cluvgrzhlt88/19/2025 10:30 AM EDT Infusion [facility] Infusion [address] [facility] [address] [place] [address] [phone] [facility] InfusionStart: 06-21-2024 End: 87-83-7156gribhxdhpo75/12/2025 9:00 AM EDT Visit [facility] [address] [place] [address] Norma Kinney MD [address] [facility] [place] [address] [facility] HospitalStart: 06-09-2024 End: 38-80-3321Zjzqwxv encounter aoyfwcnxz14/30/2025 2:50 PM EDT Routine [facility] [address] [place] [address] Yaquelin Horne PA [address] [place] [address] NOMS BCP OBStart: 06-02-2024 End: 02-63-5063Qupmwpz encounter tohtehjzz60/23/2025 8:45 AM EDT Office Visit [facility] at [facility] [address] [place] [address] Deepthi Tomas MD [address] [facility] 1st [place] [address] [facility] Hospitaltart: 06-02-2024 End: 85-25-8090Vymlsmt encounter odvztqflw02/23/2025 7:30 AM EDT Appointment [facility] [address] [place] [address] [phone] Regional Medical Center US ImagingStart: 05-31-2024 End: 45-86-0207qkozjbgwsr66/21/2025 10:00 AM EDT Infusion [facility] [address] [place] [address] [phone] Physicians Digestive HealthcareStart: 05-26-2024 End: 63-47-5163Dcvbczq encounter ftijzelng66/16/2025 2:00 PM EDT Routine [facility] OB [address] [place] [address] Parish Valdez, DO [address] [place] [address] NOMS BCP OBStart: 05-24-2024 End: 04-11-6370iyespvqzkm96/14/2025 10:30 AM EDT Infusion [facility] Infusion [address] [place] [address] [facility] InfusionStart: 05-12-2024 End: 01-34-3358Ncivzhs encounter npunuxkms87/02/2025 2:30 PM EDT Routine [facility] [address] [place] [address] Yaquelin Horne PA [address] [place] [address] NOMS BCP OBStart: 05-06-2024 End: 89-27-2745Sczz complete W/O contrastEcho complete W/O contrast Echocardiography Routine HTN complicating peripregnancy, antepartum, second trimester 26 weeks gestation of Expected: 05/06/2024, Expires: 05/06/2025[facility] Work Phone: Comment on above:Expected: 05/06/2024, Expires: 05/06/2025Start: 04-26-2024 End: 01-10-1840Rlhoten encounter fzuctrbfc17/17/2025 10:10 AM EDT Office Visit [facility] [address] [facility] [place] [place] [phone] Parish Valdez DO [address] [facility] [address] [place] [address] ArrivedNOMS BCP OBComment on above:ArrivedStart: 04-21-2024 End: 95-57-8899Cvlvdegkpkwb / ancillary services ifqelrhtrq43/12/2025 11:00 AM EDT Ancillary Procedure [facility] [address] [facility] [address] [place] [address] [facility]OM[facility] BCP OBStart: 63-03-0732Tqqnq BMI ScreeningAdult BMI ScreeningProHarrison Community Hospital SystemStart: 04-19-2024 End: 14-11-3937Afgkubiojcgclc vitamin b-12Vitamin B12 Lab Routine Crohn's disease with complication, unspecified gastrointestinal tract location ([facility]) Expected: 04/19/2024, Expires: 04/19/2025ProHarrison Community Hospital SystemComment on above:Expected: 04/19/2024, Expires: 04/19/2025Start: 04-19-2024 End: 24-51-1217xsdujxthzo24/10/2025 10:30 AM EDT Infusion [facility] [address] [facility] [address] [place] [address] [phone] Physicians Digestive HealthcareStart: 04-19-2024 End: 02-27-6780Cunsqku encounter procedureProMedica Physicians Digestive HealthcareStart: 04-14-2024 End: 83-20-8050VJG panel - Blood by Automated countCBC Lab Routine Diabetes mellitus screening Expected: 04/14/2024 (Approximate), Expires: 04/14/2025[facility] Work Phone: comment on above:Expected: 04/14/2024 (Approximate), Expires: 04/14/2025Start: 04-14-2024 End: 54-53-9445Kqzlimvxzja of glucose 1 hour after glucose challenge for glucose tolerance testGlucose tolerance, 1 hour Lab Routine Diabetes mellitus screening Expected: 04/14/2024 (Approximate), Expires: 04/14/2025NOMS HealthcareComment on above:Expected: 04/14/2024 (Approximate), Expires: 04/14/2025Start: 04-14-2024 End: 16-89-0650Yyjlehl encounter ssikkqvbe59/05/2025 1:40 PM EST Routine [facility] [address] [place] [address] Parish Valdez, [address] [facility] [address] [place] [address] NOMS BCP OBStart: 03-17-2024 End: 39-26-2552Liakd fetoprotein, maternalAlpha fetoprotein, maternal Lab Routine Second trimester 19 weeks gestation of Expected: 03/17/2024 (Approximate), Expires: 09/14/2024NOAL HealthcareComment on above: Expected: 03/17/2024 (Approximate), Expires: 09/14/2024Start: 03-17-2024 End: 87-16-2664XW for pregnancyUS OB 14+ weeks anatomy scan Imaging Routine Screening, , for anatomic survey Expected: 03/17/2024, Expires: 03/17/2025NOMS HealthcareComment on above:Expected: 03/17/2024, Expires: 03/17/2025Start: 03-17-2024 End: 00-87-4554Ypesupv encounter ayrislldi90/05/2025 10:30 AM EST Routine [facility] [address] [place] [address] Yaquelin Horne PA [address] [place] [address] NOMS BCP OBStart: 03-08-2024 End: 23-33-9236yyuvircxve99/27/2025 10:00 AM EST Infusion [facility] [address] [facility] [place] [address] [facility] HealthcareStart: 74-33-2311Nmvcx BMI ScreeningAdult BMI ScreeningProMedica Health SystemStart: 12-42-7822Kesnobb ScreeningTobacco ScreeningProMedica Health SystemStart: 37-72-3973Szviw BMI ScreeningAdult BMI ScreeningProMedica Health SystemStart: 02-18-2024 End: 04-51-6011Tyhkqps encounter mnaqhswim32/08/2025 11:30 AM EST Routine [facility] [address] [place] [address] Parish Valdez [address] [place] [address] NOMS BCP OBStart: 11-99-7786Ccyfxpy ScreeningTobacco ScreeningProMedica Health SystemStart: 72-27-0144Ksqtd BMI ScreeningAdult BMI ScreeningProMedica Health SystemStart: 94-56-4333Rdcidbv ScreeningTobacco ScreeningProMedica Health SystemStart: 01-26-2024 End: 92-44-6166chdvggsnbw91/16/2024 10:00 AM EST Infusion [facility] [address] [facility] [place] [address] [facility] HealthcareStart: 01-23-2024 End: 93-47-5939LAJ/RhABO/Rh Lab Routine Missed menses , unspecified gestational age Expected: 01/23/2024 (Approximate), Expires: 01/22/2025[facility] HealthcareComment on above:Expected: 01/23/2024 (Approximate), Expires: 01/22/2025Start: 01-23-2024 End: 20-51-1532Ofxll type and Indirect antibody screen panel - BloodType and screen Lab Routine Missed menses , unspecified gestational age Expected: 01/23/2024 (Approximate), Expires: 01/22/2025[facility] Work Phone: comment on above:Expected: 01/23/2024 (Approximate), Expires: 01/22/2025Start: 01-23-2024 End: 03-37-7027Ffkgf of abuse panel - Urine by Screen methodRapid drug screen, urine Lab Routine , unspecified gestational age Encounter for supervision of normal first in first trimester Expected: 01/23/2024 (Approximate), Expires: 01/22/2025[facility] HealthcareComment on above:Expected: 01/23/2024 (Approximate), Expires: 01/22/2025Start: 01-23-2024 End: 69-45-3466KT Pelvis transvaginalUS OB transvaginal Imaging Routine Missed menses Expected: 01/23/2024 (Approximate), Expires: 01/22/2025[facility] Comment on above:Expected: 01/23/2024 (Approximate), Expires: 01/22/2025Start: 12-22-2023 End: 00-30-0458Jjuwvab encounter xaqstkeoc98/11/2024 3:40 PM EST Office Visit [facility] [address] [place] [place] [address] Hilary Aviles, ACTING INSTRUCTOR-PATROL MAN [address], [place] [address] [facility]: 12-12-2023 End: 62-21-0589ggssrghnaj75/01/2024 10:00 AM EDT Infusion [facility] [address] [facility] [address] [place] [address] [phone] [facility] HealthcareStart: 11-20-2023 End: 72-98-7338Mjgaiyn encounter rdcpcyqnq54/10/2024 1:00 PM EDT Office Visit [facility] [address] [place] [address] Mj Pizarro MD [address] [place] [address] [facility] OncologyStart: 11-19-2023 End: 48-08-2135Glfvahq encounter fwuwxmdlp67/09/2024 9:40 AM EDT Office Visit [facility] [address] [place] [address] [address] [place], [place] [address] Hilary Aviles, ACTING INSTRUCTOR-PATROL MAN [address] [facility], [place] [address] [facility] MedicineStart: 10-31-2023 End: 52-49-4098M-reactive proteinC-reactive protein Lab Routine Crohn's disease of both small and large intestine with other complication ([facility]) Expected: 10/31/2023, Expires: 10/30/2024[facility] SystemComment on above:Expected: 10/31/2023, Expires: 10/30/2024Start: 10-31-2023 End: 66-43-9305Clbyqnylvhedgy vitamin b-12Vitamin B12 Lab Routine Crohn's disease of both small and large intestine with other complication ([facility]) Expected: 10/31/2023, Expires: 10/30/2024[facility] SystemComment on above:Expected: 10/31/2023, Expires: 10/30/2024Start: 10-31-2023 End: 65-24-2375Jkpuaribyfk sedimentation rateErythrocyte Sedimentation Rate (ESR) Lab Routine Crohn's disease of both small and large intestine with other complication ([facility]) Expected: 10/31/2023, Expires: 10/30/2024[facility] SystemComment on above:Expected: 10/31/2023, Expires: 10/30/2024Start: 10-31-2023 End: 65-20-7608imxagxqvru97/20/2024 9:30 AM EDT Infusion [facility] [address] [place] [address] [address] [address] MijNmwigw [facility] HealthcareStart: 10-31-2023 End: 07-67-6541Uybeftr encounter tcboexpgd16/20/2024 9:00 AM EDT Office Visit [facility] [address] [place] [address] [address] [place] [address] [place] [address] [place] [address], [address] [place] [address] [facility] HealthcareStart: 10-27-2023 End: 31-85-4250clwouqyiqk53/16/2024 12:00 PM EDT Infusion [facility] [address] [place] [address] [address] [place] [address] SrjByovvj [facility] HealthcareStart: 10-27-2023 End: 13-78-2170Grivdst encounter cjrskxlyb93/16/2024 11:30 AM EDT Office Visit [facility] [address] [place] [address] [address] [place] [address] [place] [address] [place] [address], [address] [place] [address] [facility] HealthcareStart: 43-37-3996Zvchqxlzn vaccinationInfluenza Vaccine [facility] SystemStart: 09-17-2023 End: 78-47-5017Lvxpjwh encounter tallbkuxd87/07/2024 9:20 AM EDT Office Visit [facility] [address] [place] [address] [place] [address] Hilary Aviles, ACTING INSTRUCTOR-PATROL MAN [address] [facility] [address], [place] [address] [facility]: 09-15-2023 End: 88-68-1634fwbletoetm96/05/2024 10:00 AM EDT Infusion [facility] [address] [place] [address] [address] [place] [address] [phone] [facility] HealthcareStart: 06-17-2023 End: 44-50-1834Rqchfvt encounter nomdyxdfg11/07/2024 11:15 AM EDT Office Visit [facility] [address] [address] Meaghan King PA-C [address] [place] [address] [facility] HealthcareStart: 06-10-2023 End: 90-16-3083wohurpzyvf13/30/2024 10:30 AM EDT Infusion [facility] [address] [facility] [address] [place] [address] AgtCfadsp [facility] HealthcareStart: 04-21-2023 End: 24-21-7326dbbzjefdiq01/11/2024 10:00 AM EDT Infusion [facility] [address] [facility] [address] [place] [address] WqsNgehwv [facility] HealthcareStart: 03-31-2023 End: 14-44-3420lpgvwexjcn39/19/2024 10:00 AM EST Infusion [facility] [address] [facility] [address] [place] [address] OkpKzhlnx [facility] HealthcareStart: 02-17-2023 End: 86-98-6990livsgcvbat88/08/2024 11:30 AM EST Infusion [facility] [address] [facility] [address] [place] [address] [phone] [facility] HealthcareStart: 44-69-6700Iosrttqie vaccinationInfluenza VaccineProHarrison Community Hospital SystemStart: 73-27-4787Vmpkwnbcng ScreeningDepression ScreeningSouthern [facility] Medical Center SystemStart: 16-01-7375Bsdcpybow for malignant neoplasm of cervixPap SmearSouthern Ohio Medical Center SystemStart: 91-07-7147POlR,Tdap and Td Vaccines (1 - Tdap)DTaP,Tdap and Td Vaccines (1 - Tdap)[facility]: 51-51-3802Myvvw BMI Follow Up PlanAdult BMI Follow Up PlanTogus VA Medical CenterBacteria identified in Urine by Culture Urine culture Microbiology Routine Missed menses Or[facility]: [facility]/23/2024[facility]:Ordered: 01/23/2024acteria identified in Urine by CultureUrine culture Microbiology Routine 6 weeks follow-up Ordered: 07/15/2024[facility] Work Phone: comment on above:Ordered: 07/15/2024 End: 90-91-1462Ehigr metabolic 2000 panel - Serum or PlasmaBasic Metabolic Panel Lab Routine Therapeutic drug monitoring Crohn's disease of both small and large intestine with other complication ([facility]) 1 Occurrences starting 10/31/2023 until 10/30/2024[facility] SystemComment on above:1 Occurrences starting 10/31/2023 until 10/30/2024 End: 81-27-4696Qnvcfztrphbl, FCalprotectin, F Lab Routine Crohn's disease of both small and large intestine with other complication ([facility]) 1 Occurrences starting 10/31/2023 until 10/30/2024[facility] Work Phone: Comment on above:1 Occurrences starting 10/31/2023 until 10/30/2024 End: 76-05-0114Weujmapfjmfu, FCalprotectin, F Lab Routine Crohn's disease of colon with other complication ([facility] 1 Occurrences starting 04/22/2024 until 04/22/2025[facility] Work Phone: Comment on above:1 Occurrences starting 04/22/2024 until 04/22/2025 End: 53-93-8297Hyddxfsvidqr, FCalprotectin, F Lab Routine Ulcerative colitis with other complication, unspecified location ([facility]) 1 Occurrences starting 04/23/2024 until 04/23/2025[facility] Work Phone: Comment on above:1 Occurrences starting 04/23/2024 until 04/23/2025 End: 75-75-3076CXG panel - Blood by Automated countCBC without diff Lab Routine Therapeutic drug monitoring 1 Occurrences starting 10/31/2023 until 10/30/2024 [facility] FarmersR[facility] SystemComment on above:1 Occurrences starting 10/31/2023 until 5CBC W Auto Differential panel - BloodCBC and differential Lab Routine Missed menses , unspecified gestational age Ordered: 01/23/2024[facility] SwingTimeComment on above:Ordered: 01/23/2024 End: 46-68-9850ZRR W Auto Differential panel - BloodCBC auto differential Lab Routine Thrombocytopenia ([facility]) 1 Occurrences starting 04/19/2024 until 04/19/2025[facility] Work Phone: Comment on above:1 Occurrences starting 04/19/2024 until 04/19/2025 End: 13-25-3802IMB W Auto Differential panel - BloodCBC auto differential Lab STAT Other iron deficiency anemia 1 Occurrences starting 07/09/2024 until 07/09/2025[facility] Work Phone: comment on above:1 Occurrences starting 07/09/2024 until 6CBC W Auto Differential panel - BloodCBC and differential Lab Routine Menorrhagia with regular cycle Ordered: 11/22/2024[facility] [employer] Work Phone: comment on above:Ordered: 11/22/2024HLAMYDIA TRACHOMATIS (GENITO/STI)CHLAMYDIA TRACHOMATIS (GENITO/STI) Lab Routine STD exposure Ordered: 03/17/2024[facility]:Ordered: 03/17/2024 End: 53-37-2487Gncnghnnrdgzzd vitamin b-12Vitamin B12 Lab STAT Other iron deficiency anemia 1 Occurrences starting 07/09/2024 until 07/09/2025[facility] SystemComment on above:1 Occurrences starting 07/09/2024 until 07/09/2025 Cytology Cervical or vaginal smear or scraping studyPap Smear Pathology and Cytology Routine Well woman exam with routine gynecological exam Ordered: [facility] Work Phone: comment on above:Ordered: 10/18/2024 End: 11-27-0750Mtxikvgr [Mass/volume] in Serum or PlasmaFerritin Lab STAT Other iron deficiency anemia 1 Occurrences starting 07/09/2024 until 07/09/2025 [facility] SystemComment on above:1 Occurrences starting 07/09/2024 until 07/09/2025 End: 78-19-5174SapesdXdqizy Lab STAT Other iron deficiency anemia 1 Occurrences starting 07/09/2024 until 07/09/2025[facility] CenterComment [facility]:1 Occurrences starting 07/09/2024 until 07/09/2025hCG, quantitative, pregnancyhCG, quantitative, Lab Routine Menorrhagia with regular cycle Ordered: 11/22/2024[facility] Center[facility]:Ordered: 11/22/2024Hemoglobin A1c/Hemoglobin.total in BloodHemoglobin A1c Lab Routine Missed menses , unspecified gestational age Ordered: 01/23/2024[facility] Center[facility]: Ordered: 01/23/2024Hemoglobin A1c/Hemoglobin.total in BloodHemoglobin A1c Lab Routine Menorrhagia with regular cycle Ordered: 11/22/2024[facility] Center[facility]:Ordered: 11/22/2024Hepatitis B virus surface Ag [Presence] in Serum or Plasma by ImmunoassayHepatitis B surface antigen Lab Routine Missed menses , unspecified gestational age Ordered: 01/23/2024[facility] HealthcareComment on above:Ordered: 01/23/2024Hepatitis C virus Ab [Presence] in Serum or Plasma by ImmunoassayHepatitis C antibody Lab Routine Missed menses , unspecified gestational age Ordered: 01/23/2024[facility] HealthcareComment on above: Ordered: 01/23/2024HIV-1/HIV-2 antigen/antibody combination immunoassayHIV-1 and HIV-2 antibodies Lab Routine Missed menses , unspecified gestational age Ordered: 01/23/2024[facility] HealthcareComment on above:Ordered: 01/23/2024Human papilloma virus DNA [Presence] in Unspecified specimen by Probe with amplificationHPV DNA probe, amplified Microbiology Routine Well woman exam with routine gynecological exam Ordered: 10/18/2024[facility] CenterComment [facility]: Ordered: 10/18/2024 End: 74-39-1807Riiqpdoxli quant w/reflexInfliximab quant w/reflex Lab Routine Crohn's disease of colon with intestinal obstruction ([facility]) 1 Occurrences starting 05/31/2024 until 05/31/2025[facility] Work Phone: Comment on above:1 Occurrences starting 05/31/2024 until 05/31/2025 End: 45-96-7591Qhun and TIBCIron and TIBC Lab STAT Other iron deficiency anemia 1 Occurrences starting 07/09/2024 until 07/09/2025[facility] SystemComment on above:1 Occurrences starting 07/09/2024 until 07/09/2025 End: 18-55-8454Qcqak panelLiver panel Lab Routine Therapeutic drug monitoring Crohn's disease of both small and large intestine with other complication ([facility]) 1 Occurrences starting 10/31/2023 until 10/30/2024[facility] Comment on above:1 Occurrences starting 10/31/2023 until 10/30/2024 End: 10-04-6585Mwbfxbjexjihl TB by Quantiferon GoldMycobacterium TB by Quantiferon Gold Lab Routine Crohn's disease of both small and large intestine w ith intestinal obstruction ([facility]) 1 Occurrences starting 06/09/2023 until 06/08/2024[facility] Work Phone: Comment on above:1 Occurrences starting 06/09/2023 until 06/08/2024Neisseria gonorrhoeae DNA [Presence] in Unspecified specimen by ROBERT with probe detectionNeisseria gonorrhea DNA probe, direct Lab Routine STD exposure Ordered: 03/17/2024[facility] HealthcareComment on above:Ordered: 03/17/2024 End: 45-66-3045Xxxrey Therapy - Maintain SpO2: 90% or greater; *FLEET MANAGER Guidelines for O2: Yes; Document: [email or web address]/[email or web address]/EPIC_Reference/Orders/Respiratory%20Care%20Guidelines/CPG%20Ox ygen%705266.pdfOxygen Therapy - Maintain SpO2: 90% or greater; *FLEET MANAGER Guidelines for O2: Yes; Document: [email or web address]/[email or web address]/EPIC_Reference/Orders/Respiratory%20Care%20Guidelines/CPG%20Ox ygen%654849.pdf Respiratory Care STAT Iron deficiency anemia due to chronic blood loss Iron deficiency anemia, unspecified Iron malabsorption As Needed for 1 Occurrences starting 02/06/2023 until 3[facility] Work Phone: Comment on above:As Needed for 1 Occurrences starting 02/06/2023 until 3Prothrombin time (PT) in Blood by Coagulation assay Protime-INR Lab Routine Menorrhagia with regular cycle Ordered: 11/22/2024[facility] HealthcareComment on above:Ordered: 11/22/2024 End: 09-76-2737Xtttwcwul function test Complete PFT w/ BD (Spirometry (Flow Volume Loop) pre/post short acting bronchodilator w/ DLCO (diffusion study) and Lung Volume)Pulmonary function test Complete PFT w/ BD (Spirometry (Flow Volume Loop) pre/post short acting bronchodilator w/ DLCO (diffusion study) and Lung Volume) PFT Routine Reactive airway disease with acute exacerbation, unspecified asthma severity, unspecified whether persistent 1 Occurrences starting until 02/21/2024[facility] Work Phone: Comment on above:1 Occurrences starting 02/20/2023 until 02/21/2024Reagin Ab [Presence] in Serum by RPRRPR Lab Routine Missed menses , unspecified gestational age Ordered: 01/23/2024[facility] Comment on above:Ordered: 01/23/2024ubella antibody, IgGRubella antibody, IgG Lab Routine Missed menses , unspecified gestational age Ordered: 01/10[facility] HealthcareComment on above:Ordered: 01/23/2024SURESWAB(R) ADVANCED VAGINITIS PLUS, TMASURESWAB(R) ADVANCED VAGINITIS PLUS, TMA Pathology and Cytology Routine Vaginal discharge Ordered: 03/17/2024[facility] [employer] Work Phone: comment on above:Ordered: 03/17/2024 End: 35-11-7511Tenibdvtjq MetabsThiopurine Metabs Lab Routine Therapeutic drug monitoring 1 Occurrences starting 02/03/2024 until 02/02/2025[facility] Work Phone: Comment on above:1 Occurrences starting 02/03/2024 until 02/02/2025 End: 88-21-0969Gtlujvettl MetabsThiopurine Metabs Lab Routine Therapeutic drug monitoring 1 Occurrences starting 10/31/2023 until 10/30/2024[facility] SystemComment on above:1 Occurrences starting 10/31/2023 until 10/30/2024 Thyrotropin [Units/volume] in Serum or PlasmaTSH Lab Routine Menorrhagia with regular cycle Ordered: 11/22/2024[facility] HealthcareComment on above:Ordered: 11/22/2024Thyroxine (T4) free [Mass/volume] in Serum or PlasmaT4, free Lab Routine Menorrhagia with regular cycle Ordered: 11/22/2024[facility] HealthcareComment on above:Ordered: 11/22/2024 End: 28-65-5109Jvberdb D 25 hydroxyVitamin D 25 hydroxy Lab Routine Crohn's disease of both small and large intestine with other complication ([facility]) 1 Occurrences starting 10/31/2023 until 10/30/2024[facility] Casual Collective SystemComment on above:1 Occurrences starting 10/31/2023 until 10/30/2024 End: 77-50-2461Nfpszlx D 25 hydroxyVitamin D 25 hydroxy Lab Routine Crohn's disease with complication, unspecified gastrointestinal tract location ([facility]) 1 Occurrences starting 04/19/2024 until 04/19/2025[facility] Comment on above:1 Occurrences starting 04/19/2024 until 04/19/2025 Payers DatePayer CategoryPayerPolicy [id number] 2023Medicaid [id number] Managed Care - POS [employer] [id number] Managed Care HMO (unspecified)[employer] Member Subscriber Plan / Payer (Effective 2021-Present) Name: Juan Luis Storey Member ID: [id number] Relation to Subscriber: Self Name: Juan Luis Storey Subscriber ID: [id number] Payer ID: 1 (NAIC) Type: [facility] Address: [facility] [address] [place] [id number] Health InsuranceAETNA AETNA POS II [id number] 2021-Present [phone] [address] [place] [id number] [id number] ..840.1.987798.3.579.2.32106-33-9337Jtsiezu884259301 2.16.840.1.300375.3.579.2.907486-23-0625Igyqnit960316467 2.16.840.1.616877.3.579.2.66[id number] 2.16.840.1.398791.3.579.2.403246-50-0677Leoxhmb456974721 2.16.840.1.081822.3.579.2.212124-36-7422Qsblurv951081366 2.16.840.1.584489.3.579.2.423118-69-8247Euctusd991550591 2.16.840.1.480742.3.579.2.499011-03-2451Ddlghpr356473327 2.16.840.1.649778.3.579.2.141203-39-3438Flcciaz89180889 2.16.840.1.412601.3.579.2.782808-32-4604Rgoigoy99273158 2.16.840.1.107435.3.579.2.086572-65-7291Rclndfk50253902 2.16.840.1.549724.3.579.2.545530-96-2645Xznnmze8694230 2.16.840.1.274245.3.579.2.628117-23-9525Gqpiwzc0247569 2.16.840.1.293710.3.579.2.246452-73-5729Vplbhzs5819887 2.16.840.1.484676.3.579.2.001328-67-4072Ydvjfml0301771 2.16.840.1.512490.3.579.2.334221-17-9897Cbbpizg6826957 2.16.840.1.658617.3.579.2.544065-59-6424Alptyan6061552 2.16.840.1.173103.3.579.2.347089-92-6554Fzypspf4264390 2.16.840.1.935917.3.579.2.592627-56-4305Srgnzvl3514402 2.16.840.1.349880.3.579.2.991826-81-2601Sbdkccr529722429 2.16.840.1.126302.3.579.2.448930-89-3008Kagyxap527426620 2.16.840.1.405066.3.579.2.771903-63-4049Nxshmwo733361481 2.16.840.1.081835.3.579.2.252880-49-3087Cnubocl784899094 2.16.840.1.259865.3.579.2.135411-57-3700Rsmjuyh176015050 2.16.840.1.731083.3.579.2.778467-80-7113Xmpnwmw238342975 2.16.840.1.241201.3.579.2.308325-40-4671Nrkuijn536670089 2.16.840.1.841064.3.579.2.267781-25-1145Dweluth98789007 2.16.840.1.095563.3.579.2.338454-03-6264Rqfeflo39321845 2.16.840.1.448904.3.579.2.040561-17-9231Uohjkka452949139 2.16.840.1.451043.3.579.2.636012-57-3467Pkrnenb370639126 2.16.840.1.103967.3.579.2.037383-18-6004Kqtabds165832885 2.16.840.1.827413.3.579.2.254872-63-4302Yrloavh025530916 2.16.840.1.147099.3.579.2.463606-42-0748Mirbbxr061130228 2.16.840.1.375849.3.579.2.457013-67-5829Xojqoxw434410417 2.16.840.1.835801.3.579.2.072360-90-2614Qgxjqxr460057947 2.16.840.1.887179.3.579.2.294950-23-8820Flmbkic057917845 2.16.840.1.463807.3.579.2.815657-11-0744Cyxeeap576613226 2.16.840.1.898795.3.579.2.269416-25-9511Qnyfiiu104962192 2.16.840.1.941486.3.579.2.392581-61-1440Rhleqvx732643696 2.16.840.1.540984.3.579.2.399063-77-5888Yxfchdo569441405 2.16.840.1.487052.3.579.2.264960-55-5668Deasdab604157123 2.16.840.1.564486.3.579.2.279742-13-4977Sfpahta858233874 2.16.840.1.785025.3.579.2.539435-52-0113Frctlse752503516 2.16.840.1.009527.3.579.2.605253-38-1412Ulfiyor447518765 2.16.840.1.070184.3.579.2.437165-94-7946Mmxelqs655599414 2.16.840.1.029626.3.579.2.594368-32-2044Oedhxdy891732841 2.16.840.1.718096.3.579.2.056852-03-3416Qbquepx758918977 2.16.840.1.019245.3.579.2.722776-68-7335Cylxgre719616398 2.16.840.1.203998.3.579.2.342038-88-8305Ugslbvv766362110 2.16.840.1.488996.3.579.2.580223-03-5200Otlwdvs177434405 2.16.840.1.632732.3.579.2.065532-07-5036Vbswije751079097 2.16.840.1.795436.3.579.2.254543-38-5598Jdtahbb389509546 2.16.840.1.333825.3.579.2.886474-60-4134Nvewlva978696804 2.16.840.1.330702.3.579.2.725672-35-7652Eeavloa830378396 2.16.840.1.691107.3.579.2.476184-21-1741Gozytwx025802807 2.16.840.1.084577.3.579.2.818340-19-6038Ydyeigs392421123 2.16.840.1.634584.3.579.2.585782-25-7472Hbxhxog973606068 2.16.840.1.472442.3.579.2.134805-65-0164Xopdhrt942057413 2.16.840.1.483816.3.579.2.699278-38-2099Ohqzddz827193427 2.16.840.1.489146.3.579.2.710271-06-2234Twqhlfs851999940 2.16.840.1.149912.3.579.2.642750-37-2282Dfcftve573899257 2.16.840.1.317938.3.579.2.511604-23-4868Jyuwkjt913148481 2.16.840.1.191378.3.579.2.458088-63-6043Uqsdcyl799941454 2.16.840.1.663334.3.579.2.383427-72-7783Xavktpb187590997 2.16.840.1.773124.3.579.2.026600-55-7125Vkoytzq776133179 2.16.840.1.361185.3.579.2.210854-62-1130Bearwrj684884861 2.16.840.1.197785.3.579.2.696089-35-9518Dhztflj88925770 2.16.840.1.401773.3.57[id number] 2.16.840.1.566360.3.579.2.137143-81-9230[facility] [id number] Social History DateTypeDetailFacilityStart: 12-27-2021 End: 80-59-1395Suedccx smoking status NHISNever smoked tobaccoNOMS Healthcare Start: 12-27-2021 End: 45-28-2334Afejjlw use and exposureSmokeless tobacco non-userSouthern [facility] Medical Center SystemStart: 01-23-2024 End: 03-07-9896Marvzykwr beverage intakeLifetime non-drinker (finding)[facility] HealthcareStart: 02-29-2020 End: 65-88-6558Rypzvyd of Social functionSouthern Ohio Medical Center SystemStart: 02-29-2020 End: 29-87-2708Gsgfmdc use panelSouthern Ohio Medical Center SystemStart: 11-19-2023 PregnancySouthern Ohio Medical Center SystemStart: 74-73-4041Asd assigned at birthFeWaltham Hospital HealthcareStart: 76-36-1550Rkaoaf identityIdentifies as female gender (finding) [facility] HealthcareStart: 63-75-8407Gdrodr orientationHeterosexual (finding)[facility] HealthcareStart: 01-31-2024 End: 13-01-8551Vlvgrbcaz beverage intakeCurrent non-drinker of alcohol (finding) [facility]: 06-68-0108Bubtbqxmqv depression screening jvaqdjxjvn91GkaFgvpwtAtrium Healthtart: 24-77-7804Dzy assigned at birthNot on fileAtrium Healthtart: 80-13-6041JmtBelxrd (finding)[facility] CenterHas the electric, gas, oil, or water company threatened to shut off services in your home in past 12FriGlenbeigh HospitalThe thought of harming myself has occurred to [facility] Goals DatePatient GoalDesired Activity/StatePersonal health goalComment on above: Evaluation of progress towards goal: patient to discharge to home.Personal health goalComment on above: Evaluation of progress towards goal: Pt plans to [place] home self care with family support.Personal health goalComment on above: Evaluation of progress towards goal: pt would like to return home with family support vs going to [facility] while her baby remains in NICU Functional Status Rgg[id number], Afraid, Rape, and Kick questionnaire [HARK][facility] Clinical Notes 02-06-2023 to 12-15-2024 Note Date & [id number] History of Present illness Narrative* Lupe Barba RN - 12/15/2024 1:00 PM EST Infusion start time: 1352 Patient here for Avsola infusion. Patient denies any recent infections oron antibiotics, open wounds, recent/future surgery, vaccinations or insurance changes. IV started with 22g needle to right wrist area by Yaquelin Barba RN x1 attempt. Patient tolerated well. Avsola Lot# [id number] Exp- 05/10/2028 Time out performed prior to medication administration. Name, , medication(s) verified * Lupe Barba RN - 12/15/2024 1:00 PM EST IV Infusion END time: 1455 patient infusion complete. IV discontinued, catheter intact, vitals WNL.Patient tolerated infusion well PIV flushed with 10 ml of 0.9% NS after medication infused documented in this encounterKettering Health Behavioral Medical CenterNexthink Hutzel Women'S [id number] History of Present illness Narrative* Raf Kelly LPN - 11/22/2024 3:10 PM EDT Reason for Appointment: Patient ID: Juan Luis Storey is a 34 y.o. female who presents for Consult Patient presents today for Consult appointment. MEDICATIONS Current Outpatient Medications Medication Instructions azaTHIOprine (Imuran) 50 MG tablet TAKE 3 TABLETS BY MOUTH IN THE MORNING Eliquis 5 MG tablet TAKE 1 TABLET BY MOUTH TWICE DAILY ( MORNING AND BEFORE BEDTIME ) folic acid (FOLVITE) 1,000 mcg, Oral, Every morning inFLIXimab-dyyb (Inflectra) 100 MG injection 5 mg/kg, Intravenous ALLERGIES Allergies[1] PROBLEMS Active Ambulatory Problems Diagnosis Date Noted No Active Ambulatory Problems Resolved Ambulatory Problems Diagnosis Date Noted No Resolved Ambulatory Problems Past Medical History: Diagnosis Date Acute Crohn's disease with complication (HCC) At standard risk for fall BMI 25.0-25.9,adult HISTORY PAST MEDICAL HISTORY SOCIAL HISTORY Medical History[2] Social History Tobacco Use Smoking status: Never Smokeless tobacco: Never Substance Use Topics Alcohol use: Never Drug use: Never FAMILY HISTORY Family History[3] SURGICAL HISTORY Surgical History[4] REVIEW OF SYSTEMS Review of Systems: Review of Systems Constitutional: Negative. HENT: Negative. Eyes: Negative. Respiratory: Negative. Cardiovascular: Negative. Gastrointestinal: Negative. Genitourinary: Positive for vaginal bleeding. Musculoskeletal: Negative. Skin: Negative. Neurological: Negative. All [...] nursing note reviewed. Exam conducted with a verifying specialist present. Vitals: Estimated body mass index is 27.92 kg/m as calculated from the following: Height as of this encounter: 5' 5 . Weight as of this encounter: 167 lb 12.8 oz. BP: 122/82 No LMP recorded. ASSESSMENT & PLAN ICD-10-CM 1. Encounter for consultation Z71.9 Patient presents to office to discuss endometrial ablation. Advised patient that she would need to be postoperative 1 year prior to surgical management. Patient to have Labs and US done and return toclinic for yearly PAP appointment. Joanie in [place]. Documented by Raf Kelly LPN on behalf of: Parish Valdez DO [1] No Active Allergies [2] Past Medical History: Diagnosis Date Acute Crohn's disease with complication (HCC) At standard risk for fall BMI 25.0-25.9,adult [3] Family History Problem Relation Name Age of Onset Diabetes Mother Hypertension Mother Anemia Mother [4] Past Surgical History: Procedure Laterality Date COLONOSCOPY 2017 CT ANGIOGRAM ABDOMEN PELVIS 06/16/2024 CT ANGIOGRAM ABDOMEN PELVIS 06/16/2024 CT ANGIOGRAM HEART CORONARY 06/02/2024 CT ANGIOGRAM TAVR 06/02/2024 CT ANGIOGRAM HEART CORONARY 06/16/2024 CT ANGIOGRAM TAVR 06/16/2024 CT ANGIOGRAM HEART CORONARY 09/08/2024 CT ANGIOGRAM TAVR 09/08/2024 CT ANGIOGRAM HEART CORONARY 09/08/2024 CT ANGIOGRAM TAVR 09/08/2024 documented in this encounterRusk Rehabilitation [id number] History of Present illness Narrative* Sravan Fontenot APRN-PATROL MAN - 11/12/2024 8:20 AM EDT Subjective Patient ID: Juan Luis Storey is a 34 y.o. female. Chief Complaint Chief Complaint Patient presents with Abrasion HPI HPI Patient was seen this morning due to a small scab wound on both side of the inner nose. She states that this has been ongoing for 2 months. It heals and then it returns back. She stopped taking her Eliquis for a few weeks thinking that it might help, the wound healing well during the period that she stopped her Eliquis then it restarted again. It is painful, it is red. There is no dry nose and nonosebleed adding. No headaches. Active Problems Patient Active Problem List Diagnosis Anemia affecting fourth Crohn's disease of both small and large intestine with intestinal obstruction ([facility]) Microcytic anemia Iron deficiency anemia due to chronic blood loss Reactive depression Psoriasis of scalp Anxiety Pain in both feet Difficulty sleeping Anemia Vitamin B 12 deficiency Iron deficiency anemia, unspecified Iron malabsorption Current moderate episode of major depressive disorder without prior episode ([facility]) Pulmonary embolism ([facility]) History of small bowel obstruction Acute midline low back pain without sciatica History of epidural anesthesia Past Medical History Past Medical History: Diagnosis Date Acute pain of left knee 12/23/2018 Anemia Anxiety Bowel obstruction (CMS-HCC) 10/17/2017 Chronic diarrhea Colon stricture ([facility]) 04/02/2018 Crohn's colitis ([facility]) Crohn[facility] disease ([facility]) Crohn's disease of both small and large intestine with intestinal obstruction ([facility]) 03/03/2018 Current chronic use of systemic steroids 03/03/2018 Depression Diarrhea 10/17/2017 Added automatically from request for surgery [id number] Difficulty sleeping 01/13/2019 Gall stones History of maternal fourth degree perineal laceration, currently 06/21/2017 History of prior with short cervix, currently 06/21/2017 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 COLONOSCOPY Left Lateral 10/21/2017 Performed by Sharda Montiel MD at [facility] COLONOSCOPY w/ Bx's & polypectomy N/A 10/08/2021 Performed by Sharda Montiel MD at [facility] ENDOSCOPY EGD N/A 04/02/2018 Performed by Darshana Rae MD at [facility] LAPAROSCOPIC ILEOCECECTOMY, TAKE DOWN OF ILEODUDENAL FISTULA, DRAINAGE OF RETROPERITONEAL ABSCESS, OMENTAL PEDICLE FLAP N/A 04/02/2018 Performed by Jonathan Bautista MD at [facility] LAPAROTOMY EXPLORATORY, SMALL BOWEL RESECTION AND ANASTAMOSIS, AND LYSIS OF ADHESIONS. N/A 05/31/2024 Performed by Padmini Wilson MD at [facility] Family History Family History Problem Relation Age of Onset Diabetes Mother Hypertension Mother Anemia Mother Heart failure Mother Stroke Mother Colon cancer Neg Hx Social History Social History Socioeconomic History Marital status: Single [...] on file Food Insecurity: No Food Insecurity (11/12/2024) Hunger Screening Food Insecurity - Worry: Never [...] Risk (06/21/2024) Housing Instability Housing Instability: No Allergies Allergies Allergen Reactions Zoloft [Sertraline] Diarrhea Pt reports this is not an allergy Current Medications Current Outpatient Medications Medication Sig Dispense Refill azaTHIOprine (IMURAN) 50 mg tablet Take 4 tablets (200 mg total) by mouth in the morning. 120 tablet 0 cyclobenzaprine (FLEXERIL) 10 mg tablet Take 1 tablet (10 mg total) by mouth every 8 (eight) hours as needed for muscle spasms. 30 tablet 1 ferric maltol (ACCRUFER) 30 mg capsule Take 30 mg by mouth in the morning and 30 mg before bedtime.60 capsule 3 inFLIXimab-axxq (AVSOLA) 100 mg injection Infuse 5 mg/kg into a venous catheter every 6 (six) weeksIndications: Crohn's disease. apixaban (ELIQUIS) 5 mg tablet Take 1 tablet (5 mg total) by mouth in the morning and 1 tablet (5 mg total) before bedtime. (Patient not taking: Reported on 11/12/2024) 180 tablet 1 folic acid (FOLVITE) 1 mg tablet Take 1 tablet (1 mg total) by mouth in the morning. mupirocin (BACTROBAN) 2 % ointment Apply 1 Application topically 3 (three) times a day. 22 g 0 No current facility-administered medications for this visit. Review of Systems Review of Systems Constitutional: Positive for activity change. Negative for appetite change, fatigue and unexpected weight change. HENT: Negative for congestion, dental problem, hearing loss, postnasal drip, rhinorrhea, sinus painand trouble swallowing. Nose scab Eyes: Negative for photophobia, discharge and visual disturbance. Respiratory: Negative for cough, choking, chest tightness, shortness of breath and wheezing. Cardiovascular: Negative for chest pain, palpitations and leg swelling. Gastrointestinal: Negative for abdominal distention, abdominal pain, constipation, nausea and vomiting. Endocrine: Negative for cold intolerance, heat intolerance, polydipsia, polyphagia and polyuria. Genitourinary: Negative for difficulty urinating and dysuria. Musculoskeletal: Negative for back pain, myalgias, neck pain and neck stiffness. Skin: Negative. Negative for color change. Allergic/Immunologic: Negative for environmental allergies and food allergies. Neurological: Negative for dizziness, weakness and headaches. Hematological: Negative. Psychiatric/Behavioral: Negative for agitation, behavioral problems, dysphoric mood, sleep disturbance and suicidal ideas. The patient is not nervous/anxious. Objective Vitals BP 122/78 (BP Site: Left Arm, BP Postition: Sitting) Pulse 81 Temp 36.7 C (98.1 F) (Oral) Ht 165.1 cm (5' 5 ) Wt 75.3 kg (166 lb) SpO2 98% BMI 27.62 kg/m Physical Exam Physical Exam Vitals and nursing note reviewed. Constitutional: Appearance: Normal appearance. HENT: Head: Normocephalic. Nose: Comments: On both sides of the nasal entrance, there were small red open sore. Mouth/Throat: Mouth: Mucous membranes are moist. Pulmonary: Effort: Pulmonary effort is normal. Musculoskeletal: Cervical back: No rigidity. No muscular tenderness. Neurological: General: No focal deficit present. Mental Status: She is alert and oriented to person, place, and time. Psychiatric: Mood and Affect: Mood normal. Assessment/Plan 1. Open wound of nasal cavity, initial encounter - mupirocin (BACTROBAN) 2 % ointment; Apply 1 Application topically 3 (three) times a day. Dispense: 22 g; Refill: 0 2. Iron deficiency anemia, unspecified - folic acid (FOLVITE) 1 mg tablet; Take 1 tablet (1 mg total) by mouth in the morning. No orders of the defined types were placed in this encounter. Will give her Bactroban antibiotic ointment to help moist in the nose and promote healing. Follow-up as needed Side effects of prescribed medications reviewed with the patient. All the pertinent questions were answered. Return if symptoms worsen or fail to improve, for scab on nose. This note is created with the assistance of a speech recognition program. While intending to generate a document that actually reflects the content of the visit, the document can still have some errors including those of syntax and sound a like substitutions which may escape proof reading. It such instances, actual meaning can be extrapolated by contextual diversion. TERA Grossman 11/12/24 0843 documented in this encounterTogus [facility] Center09-24-2025 History of Present illness Narrative* Raf Zarco RN - 11/03/2024 1:00 PM EDT Infusion start time: 1340 Patient here for her Avsola infusion. Patient denies any recent infections or on antibiotics, open wounds, recent/future surgery, vaccinations or insurance changes. 1320 IV started with 22g needle to left forearm by JAD Arroyo x1 attempt. Patient tolerated well. Avsola x 4 vials Lot# [id number] Exp- 02/10/2028 Time out performed prior to medication administration. Name, , medication(s) verified * Raf Zarco RN - 11/03/2024 1:00 PM EDT 1440 patient infusion complete. IV discontinued, catheter intact, vitals WNL. Patient tolerated infusion well PIV flushed with 20 ml of 0.9% NS after medication infused. Katie Gustafson CNP was present in infusion suite during infusion and immediately available Patient due for their Tuberculosis lab draw; order printed and given to patient. Instructed patientto have drawn; patient verbalized understanding of info given. documented in this encounterTogus VA Medical Center09-08-2025 History of Present illness Narrative* Tierney Simmons NP - 10/18/2024 2:30 PM EDT [...] Surgical History: Procedure Laterality Date COLONOSCOPY 2018 CT ANGIOGRAM ABDOMEN PELVIS 06/16/2024 CT ANGIOGRAM [...] nursing note reviewed. Exam conducted with a verifying specialist present. Vitals: Estimated body mass index [...] for annual unless needed otherwise. Documented by Tierney Simmons NP on behalf of: Tierney Simmons NP documented in this encounterRusk Rehabilitation [id number] History of Present illness Narrative* Lupe Barba RN - 09/22/2024 1:00 PM EDT Infusion start time: 1328 Patient here for Avsola infusion. Patient denies any recent infections oron antibiotics, open wounds, recent/future surgery, vaccinations or insurance changes. IV started with 22g needle to left hand by Yaquelin Barba RN x1 attempt. Patient tolerated well. Avsola Lot# [id number] Exp- 02/10/2028 Time out performed prior to medication administration. Name, , medication(s) verified * Lupe Barba RN - 09/22/2024 1:00 PM EDT IV Infusion END time: 1428 patient infusion complete. IV discontinued, catheter intact, vitals WNL.Patient tolerated infusion well PIV flushed with 20 ml of 0.9% NS after medication infused Katie Gustafson NP , was present in infusion suite during infusion and immediately available. documented in this encounterTogus [facility] Medical Center07-16-2025 History of Present illness Narrative* Kiki Grant RN - 08/25/2024 9:00 AM EDT Patient is here for IV infed today as scheduled. She has received IV iron in the past and toleratedwell, but reviewed process with this type of [...] observed for any adverse reactions and none noted.Infed infused per MAR over 1 hour and patient tolerated well. Upon completion, IV flushed and patient remained on unit for 30 minutes post infusion for observation. At end of observation time, vital signs obtained and stable. PIV discontinued and pressure dressing applied. Patient denies any issuesand she was instructed to contact Jayjay Clayton's office with any post infusion issues. Patient verbalized understanding. Discharged in stable condition to private vehicle. documented in this encounterTogus [facility] Medical Center07-08-2025 Miscellaneous Notes* Telephone Encounter - Yeison Velasco CMA - 08/17/2024 2:45 PM EDT Left message for patient to call me back. Canceled her 09/27/2024 appt documented in this encounterTogus [facility] Center07-08-2025 Telephone encounter Note* Telephone Encounter - Yeison Velasco CMA - 08/17/2024 2:45 PM EDT Left message for patient to call me back. Canceled her 09/27/2024 appt [facility]07-03-2025 History of Present illness Narrative* TERA Lopez - 08/12/2024 2:33 PM EDT Changed iv iron to her preferred medication infed TERA Lopez 08/12/24 1435 documented in this encounterTogus VA Medical Center07-02-2025 History of Present illness Narrative* TERA Horton - 08/11/2024 11:40 AM EDT Subjective Video Visit via Real-time Synchronous Audiovisual Provider Location: [facility] [address] [place] [id number] Patient Location: Patient's home Video Visit Consent Statement: I discussed risks, benefits, and alternatives of a real-time synchronous audiovisual consultation with the patient (and any accompanying persons) including the risks that the patient's personal health details and medical records will be discussed over real-time, synchronous, interactive video/audio/telecommunication technology, the visit will not be recorded withoutthe express consent of both the provider and the patient, and that there are some limitations compared to [id number] evaluations. The patient consented to the presence [...] lift her . 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 She is to start physical therapy soon for her back, and would like to have this time to work ongetting back to her ADL's. The following portions of the patient's history were reviewed and updated as appropriate: allergies, current medications, past family history, past medical history, past social history, past surgicalhistory, problem list, and medication reconciliation was completed including current medication andpost discharge medication. Review of Systems Constitutional: Positive [...] needed FMLA paperwork completed and faxed to [place] Follow up for back pain Start physical therapy BUBBA I Kwabena was seen today for paperwork. Diagnoses and all orders for this visit: Acute midline low back pain without sciatica History of epidural anesthesia TERA Horton 08/11/24 1405 documented in this encounterTogus [facility] Medical Center06-30-2025 History of Present illness Narrative* Lupe Barba RN - 08/09/2024 10:00 AM EDT Infusion start time: 1040 Patient here for Avsola infusion. Patient denies any recent infections oron antibiotics, open wounds, recent/future surgery, vaccinations or insurance changes. IV started with 22g needle to left ac by Yaquelin Barba RN x1 attempt. Patient tolerated well. Avsola Lot# [id number] Exp- 12/11/2027 Time out performed prior to medication administration. Name, , medication(s) verified * Lupe Barba RN - 08/09/2024 10:00 AM EDT IV Infusion END time: 1140 patient infusion complete. IV discontinued, catheter intact, vitals WNL.Patient tolerated infusion well PIV flushed with 20 ml of 0.9% NS after medication infused Katie Gustafson NP , was present in infusion suite during infusion and immediately available. documented in this encounterTogus [facility] Medical Center06-25-2025 Miscellaneous Notes* Telephone Encounter - Cecelia Romero RN - 08/04/2024 10:38 AM EDT ----- Message from Hanna Maria DO sent at 08/04/2024 9:39 AM EDT ----- ----- Message ----- From: Norma Kinney MD Sent: 08/03/2024 4:39 PM EDT To: Norma Kinney MD; Hanna Maria DO Mi, Dr. Maria, Tatum Kwabena is still bleeding after her delivery, enough so that her Hb is not recovering. Would you mind pulling her into the office and evaluating her bleeding. The blood management team reached out david as she is going through a pad sometimes every 45 minutes. Giving her iron infusions without stemming the blood loss won't be as helpful! Please call me at [phone] and let me know if you all can get her in. I'm recalling that it's challenging for her to travel to see us here. Thank you Aleyda * Telephone Encounter - Cecelia Romero RN - 08/04/2024 10:38 AM EDT Called the patient to get her scheduled left a message for a call back. - Cecelia Romero RN 08/04/24 10:39 AM documented in this encounterTogus [facility] Center06-25-2025 Telephone encounter Note* Telephone Encounter - Cecelia Romero RN - 08/04/2024 10:38 AM EDT ----- Message from Hanna Maria DO sent at 08/04/2024 9:39 AM EDT ----- ----- Message ----- From: Norma Kinney MD Sent: 08/03/2024 4:39 PM EDT To: Norma Kinney MD; Hanna Maria DO MiDr. Maria, Tatum Kwabena is still bleeding after her delivery, enough so that her Hb is not recovering. Would you mind pulling her into the office and evaluating her bleeding. The blood management team reached out david as she is going through a pad sometimes every 45 minutes. Giving her iron infusions without stemming the blood loss won't be as helpful! Please call me at [phone] and let me know if you all can get her in. I'm recalling that it's challenging for her to travel to see us here. Thank you Aleyda [facility]06-25-2025 Telephone encounter Note* Telephone Encounter - Cecelia Romero RN - 08/04/2024 10:38 AM EDT Called the patient to get her scheduled left a message for a call back. - Cecelia Romero RN 08/04/24 10:39 AM [facility]06-24-2025 History of Present illness Narrative* TERA Lopez - 08/03/2024 9:30 AM EDT Benign Hematology/ Patient Blood Management Consultation: Dr. Giovanni BELCHER Patient ID: Juan Luis Storey, 33 y.o. female Requested by: Sharda Montiel MD PCP: TERA HORTON : 1990 REASON FOR CONSULTATION: ACE CHIEF [...] left knee 12/23/2018 Anemia Anxiety Bowel obstruction ([facility]) 10/17/2017 Chronic diarrhea Colon stricture ([facility]) 04/02/2018 Crohn's colitis ([facility]) Crohn's disease ([facility]) Crohn's disease of both small and large intestine with intestinal obstruction ([facility]) 03/03/2018 Current chronic use of systemic steroids 03/03/2018 Depression Diarrhea 10/17/2017 Added automatically from request for surgery [id number] Difficulty sleeping 01/13/2019 Gall stones History of maternal fourth degree perineal laceration, currently 06/21/2017 History of prior with short cervix, currently 06/21/2017 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 COLONOSCOPY Left Lateral 10/21/2017 Performed by Sharda Montiel MD at [facility] COLONOSCOPY w/ Bx's & polypectomy N/A 10/08/2021 Performed by Sharda Montiel MD at [facility] ENDOSCOPY EGD N/A 04/02/2018 Performed by Darshana Rae MD at [facility] LAPAROSCOPIC ILEOCECECTOMY, TAKE DOWN OF ILEODUDENAL FISTULA, DRAINAGE OF RETROPERITONEAL ABSCESS, OMENTAL PEDICLE FLAP N/A 04/02/2018 Performed by Jonathan Bautista MD at [facility] LAPAROTOMY EXPLORATORY, SMALL BOWEL RESECTION AND ANASTAMOSIS, AND LYSIS OF ADHESIONS. N/A 05/31/2024 Performed by Padmini Wilson MD at [facility] PAST FAMILY HISTORY: Family History Problem [...] tablet 40 mEq 40 mEq oral Once TERA Atkinson 40 mEq at 08/02/24 1858 ALLERGIES: Allergies [...] 05/30/2024 IRONSAT 16 04/19/2024 IRONSAT 21 12/01/2023 [id number] 193 05/30/2024 [id number] 143 (L) 04/19/2024 [id number] 239 01/26/2024 FOLATE >25.0 05/30/2024 FOLATE 18.8 [...] 12/02/2024 Follows with vascular - LAB trends- 2013- hgb 7.8- 01/13/2013- vag delivery 02/25/2015- vag delivery 2017- hgb 7.4 2018- hgb 8.7- 08/28/2017- vag delivery 10/07/2019-hemoglobin 10.3- [...] if needed. Also Vitamin C 500 mg canhelp with iron absorption and Vitamin B12 500 [...] of anaphylactic reaction) Plan- IV Iron monoferric- [place] Lab recheck in 6 weeks Will reach out to vascular about menstrual cycles heavy and >7 days Will reach out to INFORMATION CODER Could try Accrufer will order to see if we can get approval - for now will continue ferrous sulfate Pt to follow up with JUAREZ- but if Dr. Pizarro feels that she should continue with benign Hematology-we have no problems with continue to follow Jayjay Jones [employer] Patient Blood Management/Bloodless Medicine Office [phone] TERA Lopez 08/03/24 1316 documented in this encounterTogus [facility] Medical Center06-23-2025 History of Present illness Narrative* Hilary Aviles, TERA - 08/02/2024 2:00 PM EDT Subjective CC: Back pain Patient ID: Juan Luis Storey is a 33 y.o. female. Juan Luis presents with mid-back pain. She feels this maybe related to a past epidural, but is unsure.She has had several surgeries over the past few months. She has a past medical history of Crohn's colitis, depression, psoriasis of scalp and internal duodenal fistula. She presented to [facility] on 05/30/2024 for evaluation of [...] She has not tried any heat or ice.She has 3 other children at home. States the children's father is helpful, but [facility] Also when asked, volunteer that she has been having sharp/stabbing chest pain off and onfor the past two weeks. She denies shortness of breath, but relates pain in both lower legs. Gely is due to see hematology in [place], tomorrow for an iron transfusion. States her last HGB was 8. Back Pain Associated symptoms include chest pain. The following portions of the patient's history were reviewed and updated as appropriate: allergies, current medications, past family history, past medical history, past social history, past surgicalhistory, problem list, and medication reconciliation was completed including current medication andpost discharge medication. Review of Systems Constitutional: Positive [...] Nose: Nose normal. No rhinorrhea. Mouth/Throat: Lips: [place]. Mouth: Mucous membranes are moist. Pharynx: Oropharynx [...] acute pulmonary embolism without acute cor pulmonale ([facility]) Iron deficiency anemia, unspecified Iron malabsorption Crohn's disease of both small and large intestine with intestinal obstruction (CMS-HCC) TERA Horton 08/02/24 1553 documented in this encounterT[facility]25 Miscellaneous Notes* Telephone Encounter - [facility] Alessia Johnsonu - 08/02/2024 1:22 PM EDT Patient was initially scheduled for an appointment to address back pain on 08/19/2024. Patient calling into office to see if we had earlier availability. Patient moved appointment to today 08/02/24 at 2:00 PM. Patient added that she wanted to discuss concerns over blood clots. Phlebotomy Services Representative added note to appointment note. When reviewing chart, provider discussed with staff writer that patient should be evaluated in ER for concerns over blood clots. Phlebotomy Services Representative made contact with patient a moment ago and advised that if there is any indication or concern over blood clot, that patient should be evaluated in ER due to previous history of blood clots. Patient verbalized understanding. Patient still wants to keep hi ointment for today to discuss her back pain, but will intend to seek ER evaluation for blood clots. documented in this encounterT[facility]06-[facility]-2025 Telephone encounter Note* Telephone Encounter - Aida Bustamante - 08/02/2024 1:22 PM EDT Patient was initially scheduled for an appointment to address back pain on 08/19/2024. Patient calling into office to see if we had earlier availability. Patient moved appointment to today 08/02/24 at 2:00 PM. Patient added that she wanted to discuss concerns over blood clots. Phlebotomy Services Representative added note to appointment note. When reviewing chart, provider discussed with staff writer that patient should be evaluated in ER for concerns over blood clots. Phlebotomy Services Representative made contact with patient a moment ago and advised that if there is any indication or concern over blood clot, that patient should be evaluated in ER due to previous history of blood clots. Patient verbalized understanding. Patient still wants to keep hi ointment for today to discuss her back pain, but will intend to seek ER evaluation for blood clots. [facility] History of Present illness Narrative* SIMI Frazier - 07/15/2024 10:40 AM EDT Reason for Appointment: Patient ID: Juan [...] (FOLVITE) 1,000 mcg, Oral, Every morning HYDROcodone-acetaminophen (Owendale) 5-325 MG tablet 1 tablet, Oral, Every [...] Surgical History: Procedure Laterality Date COLONOSCOPY 2018 CT ANGIOGRAM ABDOMEN PELVIS 06/16/2024 CT ANGIOGRAM [...] for 6 week visit. Patient is s/p C-Sectiondelivery. Patient states depression but denies suicidal and homicidal ideations. All options were discussed with the patient regarding control and patient desires none at this time. Follow Up: Patient is to return for annual unless needed otherwise. Documented by SIMI Frazier on behalf of: SIMI Frazier documented in this encounterRusk Rehabilitation [id number] Miscellaneous Notes* Telephone Encounter - Sherly Bailon - 07/09/2024 2:49 PM EDT Spoke with pt to schedule referral appt with jayjay on 08/03 at 9 am. PT is aware to complete labs prior and no fasting is required. Labs can be done at any [facility] documented in this encounterT[facility]05-30-2025 Telephone encounter Note* Telephone Encounter - Sherly Bailon - 07/09/2024 2:49 PM EDT Spoke with pt to schedule referral appt with jayjay on 08/03 at 9 am. PT is aware to complete labs prior and no fasting is required. Labs can be done at any [facility] History of Present illness Narrative* PAM Valera - 07/09/2024 8:11 AM EDT Lab orders placed for up coming appointment. documented in this encounterTogus [facility] Medical Center05-29-2025 History of Present illness Narrative* Cee Turner APRN-PATROL MAN - 07/08/2024 2:15 PM EDT Images from the original note were not included. [facility] [address] [place] [address] DR GIBBS [address] [place] [id number] Subjective: Patient ID: Juan Luis Storey is a 33 y.o. female. Chief Complaint Chief Complaint Patient presents with hospital discharge PE, rle dvt after ex lap for SBO 05/31 and 06/03. (please make next appt in [place]) History of Present Illness: 33 year old female with past medical history of Crohn's colitis, depression, psoriasis of scalp andinternal duodenal fistula. She has presented to [facility] on 05/30/2024 for evaluation of [...] of major depressive disorder without prior episode ([facility]) HTN complicating peripregnancy, antepartum, second trimester Pulmonary embolism ([facility]) History of small bowel obstruction Current Outpatient [...] past medical history, past social history, past surgicalhistory and problem list. Review of Systems: Review of Systems Constitutional: Negative for appetite change, chills, diaphoresis, fatigue and fever. HENT: Negative for congestion, facial swelling, nosebleeds, sinus pressure, sore throat and troubleswallowing. Eyes: Negative for pain, redness and visual disturbance. Respiratory: Positive for shortness of breath. Negative for cough, chest tightness and wheezing. Cardiovascular: Negative for chest pain, palpitations and leg swelling. Gastrointestinal: Negative for abdominal distention, abdominal pain, constipation, diarrhea, nauseaand vomiting. Genitourinary: Negative for dysuria, flank pain, [...] acute pulmonary embolism without acute cor pulmonale ([facility]) - D-Dimer; Future - apixaban (ELIQUIS) 5 mg tablet; Take 1 tablet (5 mg total) by mouth in the morning and 1 tablet (5 mg total) before bedtime. Acute deep vein thrombosis (DVT) of distal end of right lower extremity ([facility]) - D-Dimer; Future - apixaban (ELIQUIS) 5 [...] for your understanding. TERA Dial APRN-CNP 07/08/24 1436 documented in this encounterTogus [facility] Center05-27-2025 History of Present illness Narrative* Padmini Wilson MD - 07/06/2024 12:00 PM EDT Images from the original note were not included. Outpatient Clinic Progress Note Subjective Ilesha Jerica Storey is a 33 y.o. female presents as a follow up s/p exploratory laparotomy, small bowel resection w/ anastamosis with Dr. Wilson on 05/31/24. She is recovering well and has nocomplaints at this time. Her wound is healing [...] is healing well with small scabs around theumbilicus Musculoskeletal: Range of motion grossly normal x4 extremities, no deformity x4 extremities Neurological: CN 2-12 grossly intact, sensation grossly intact Skin: Warm, dry, without jaundice Assessment Juan Luis Storey is a 33 y.o. female is s/p exploratory laparotomy, small bowel resection w/ anastamosis Plan Activities as tolerated Return to clinic as needed documented in this encounterTog[facility]05-19-2025 History of Present illness Narrative* Lupe Barba RN - 06/28/2024 12:30 PM EDT Infusion start time: 1245 Patient here for Avsola infusion. Patient denies any recent infections or on antibiotics, open wounds, recent/future surgery, vaccinations or insurance changes. IV started with 22g needle to left ac by Yaquelin Barba RN x2 attempt. Patient tolerated well. Avsola Lot# [id number] 2 vials Exp- 12/11/2027 Lot # [id number] 2 vials Exp Time out performed prior to medication administration. Name, , medication(s) verified * Raf Zarco RN - 06/28/2024 12:30 PM EDT 1345 patient's Avsola infusion complete. IV flushed with normal saline. 1348 IV infusion completed. IV discontinued, catheter intact, vitals WNL. Patient tolerated infusion well documented in this encounterTogus [facility] Center05-19-2025 History of Present illness Narrative* Sharda Montiel MD - 06/28/2024 11:00 AM EDT [facility] [...] IBD outweighs the risk to the mother and/orfetus of continuing biologic therapy and that I [...] iron-deficiency. She was advised to proceed w high- dose vitD for 8 weeks followed by daily [...] pain in the abdomen?: Hardly any of thetime How often during the last 2 weeks [...] by a feeling of having to go tothe bathroom even though your bowels were empty?: [...] score indicates worsening HR-QOL and more impact fromIBD (Minimum score = 1, maximum score = [...] left knee 12/23/2018 Anemia Anxiety Bowel obstruction ([facility]) 10/17/2017 Chronic diarrhea Colon stricture ([facility]) 04/02/2018 Crohn's colitis ([facility]) Crohn's disease ([facility] Crohn's disease of both small and large intestine with intestinal obstruction ([facility]) 03/03/2018 Current chronic use of systemic steroids 03/03/2018 Depression Diarrhea 10/17/2017 Added automatically from request for surgery [id number] Difficulty sleeping 01/13/2019 Gall stones History of maternal fourth degree perineal laceration, currently 06/21/2017 History of prior with short cervix, currently 06/21/2017 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 Iron deficiency anemia due to chronic blood loss 07/17/2018 Microcytic anemia 07/17/2018 Pain in both feet 12/14/2018 Psoriasis of scalp 12/14/2018 Pulmonary embolism ([facility]) 05/17/2024 Reactive depression 11/09/2018 Vitamin B 12 deficiency 07/08/2019 Past Surgical History: Past Surgical History: Procedure Laterality Date N/A 06/03/2024 Performed by Sesar Kay MD at [facility] COLONOSCOPY Left Lateral 10/21/2017 Performed by Sharda Montiel MD at [facility] COLONOSCOPY w/ Bx's & polypectomy N/A 10/08/2021 Performed by Sharda Montiel MD at [facility] ENDOSCOPY EGD N/A 04/02/2018 Performed by Darshana Rae MD at [facility] LAPAROSCOPIC ILEOCECECTOMY, TAKE DOWN OF ILEODUDENAL FISTULA, DRAINAGE OF RETROPERITONEAL ABSCESS, OMENTAL PEDICLE FLAP N/A 04/02/2018 Performed by Jonathan Bautista MD at [facility] LAPAROTOMY EXPLORATORY, SMALL BOWEL RESECTION AND ANASTAMOSIS, AND LYSIS OF ADHESIONS. N/A 05/31/2024 Performed by Padmini Wilson MD at [facility] SOCIAL HISTORY: Social History Tobacco [...] VITAMIN B12: Lab Results Component Value Date [id number] 193 05/30/2024 FOLATE: Lab Results Component Value [...] 10, B12 nl, ferritin 6, iron low at42, TIBC 441, sat 10%, CBC w WBC [...] MCV wnl; otherwise unremarkable; CMP unremarkable; iron studiesnormal; B12 low at 177, thyroid studies normal [...] hemoglobin 11.5, platelets 536, otherwise unremarkable; CMP unremarkable,lipase normal; wk 5 labs on AZA Labs [...] at this time though certainly patient is atrisk for small bowel obstruction given the abnormalities in the terminal ileum. This patient shouldbe followed closely. 10/18/2017 MRE: At least 30 [...] with proximal small bowel dilatation likely related tohigh-grade partial or complete small bowel obstruction. Findings [...] Unremarkable esophagus. Normal duodenal bulb. Local mucosal changescharacterized by fistulous tract in the 2nd portion [...] nevertheless sometime in the next 6-12 months. Willobtain serologies in preparation for likely biologic to be started as an outpatient as well. Path: f ocal active colitis at the ICV and in [...] abscess with fibrosis. Skip lesions noted as wellas pseudopolyps in the cecum. Several fistulous tracts [...] proximal to that point. Colonoscopy 10/21/2017 showed asevere stricture at the TI that precluded intubation [...] was indeterminate, but in the setting of high- dose prednisone. This was repeated 11/14/2017 and found [...] a hysterectomy has been advised by her patient assessment coordinator, but that she was not ready to proceed. 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 She noted she was going to [...] 1 dose; had to stop after this 2/ cost with deductible resetting after 02/2020. -- 02/2020 OV: Currently on AZA 150mg/d. She had stopped her Inflectra infusions due to insurance and cost. She will have new insurance as of 03/13/2020. She is doing well overall w/o abd pain and having 1-2 soft brown stools/d w/o blood. Good appetite. Has received periodic IV iron infusions due toIDA 2/2 menorrhagia. RECS: To resume infliximab BUBBA. [...] BMs q1-2d w/o straining or bleeding, BSS 5- 6. No abd pain. Recent ESR, CRP wnl. [...] Overall, she reports she is feeling better. Noabdominal pain, nausea, vomiting, joint pain, visual changes.She will continue with her Imuran 150 mg daily. Continue with Imuran 150 mg daily. Her vitamin D level still low[place] [address] units q.week x8 and then back to [...] of worsening diarrhea and stool testing was unremar kable. This has since resolved, but was occurring [...] AZA 150mg/d and IFX 5mg/kg q6wks and folicacid. Cont monitoring labs every 3-6 months an annual thiopurine metabolite levels. Cont vitD 5000IU/d. Start PO iron and vitamin-C daily due to forgetfulness. - 10/2022: Her last IFX was 10/25/2022. She remains on AZA 150mg/d and folic acid 1mg/d. She is alsoon a MVI, PO iron + vitC daily, vitD 5000IU/d, B12 1mg/d. She's doing well overall, having1 BM/d, BSS 4-5. No bleeding and no abd pain. SIBDQ = 7, HBI = 0 c/w clnical remission. She doesn'tbelieve she got her HAV vaccination. Proceed w HAV vaccination. Will update nutritional markers. Con t infliximab 5mg/kg q6 wks and AZA 150mg/d [...] markers and cont monitoring therapeutic drug monitoring labs.Resume MVI containing iron. - 04/2024: In 12/2023, [...] continuing infliximab monotherapy if she can ensure complianceand not missing any doses. Otherwise, better to [...] 1-2 days prior to her infusions. She alsonotes immediate relief w her AZA. She's having [...] regimen of AZA 150mg/d, IFX 5mg/kg q6 wks,folic acid 1mg/d; vitamin. Will cont to monitor nutritional and inflammatory markers, nextdue 07/2024, however will update now due to noncompliance w supplementation and to follow up on newthrombocytopenia noted on recent labs. Due for therapeutic [...] Consulting Physician (Hematology) Norma Kinney MD as Glass Science Engineer (Obstetrics & Gynecology) ASSESSMENT AND PLAN: 33F h/o gallstones, h/o DVT/PE on ac, and complicated ileocolonic Crohn's disease here for f/u. 1. Crohn's disease: see above for summary of her complicated course. She has a h/o poor f/u and non-compliance. She has a h/o fibrostenotic disease. Since her surgery in 2018, she has chronic R-sidedintermittent abd pain, worse w lying on that side and w BM's (no sig relief w defecation). Disease location: ileocolonic c/b severe stricture at ICV on initial colonoscopy 2017 Date of dx: 10/2017 h/o surgery: 03/2018 lap converted to open ileocecetomy, RP abscess drainage, duodeno-ileal fistularepair (active Crohn's w fistulous tracts); 05/2024: SBO [...] w high-dose vitD for 8 weeks followed byashley vitD, to make sure her vitamins contain iron, and to start B12 1000 mcg daily. Unfortunately, she was admitted 05/2024 for abd pain w concerns for obstruction requiring ex lap w small-bowel resection and anastomosis w lysis of adhesions. Postoperatively, she developed preeclampsia w severe features in ultimately required an emergent C- section on 06/03/2024. She presented 06/18/2024w SOB and calf pain and possible melena [...] was 2/2 adhesions and ischemia. Her recent visitshave documented good recovery. She had her baby [...] AZA, q6mo (CBC, liver panel); due in 1modue to dose adjustment, due 07/2024, then in [...] findings of the ongoing PIANO study, The [place] Consensus Statements for the Management of Inflammatory Bowel Disease in , and the clinical care pathway released by the AGA. - AGA clinical practice update on -related gastrointestinal and liver disease: expert review (Gastroenterology. 2023;167(5):6348-4654). - Johnathan Farr, Rey C, Ama N, et al. Inflammatory bowel disease in clinical carepathway: a report from the [place] gastroenterological association [employer] project working group. Gastroenterology. 2019;156(5):2900-0487. - Johnathan Farr, Yady RA, Lobito CD. Drug Safety and Risk of Adverse Outcomes for Patients With Inflammatory Bowel Disease. Gastroenterology. 2017;152(2):451-462.e2. - Gastroenterology. 2016 Apr;150[3]:734-57 Risks of IM/biologics We spoke today about [...] (Stelara), in addition to newer agents such asthe synthetic oral small molecule Janus kinase (RANGEL) [...] screening for CRC every 1-3 years for patientswith disease involving 1/3 of the colon or [...] and strongly recommended annual f/u with a pedal assembler and regular use of skin protection -- [...] anemia in the setting of surgery and emergencyC-section. --> As above in #1. -- to [...] procedures Referring and communicating with other health health care social worker (not separately reported) Documenting clinical information [...] [facility] [place] [address] PH: [phone] Tatum Yuan was seen today for abdominal pain. Diagnoses and all orders for this visit: Crohn's disease of both small and large intestine with intestinal obstruction (CMS-HCC) Iron malabsorption Vitamin B 12 deficiency Iron [...] along with iron pills. documented in this encounterTogus [facility] Center05-19-2025 Instructions* Patient Instructions* Sharda Montiel MD - 06/28/2024 11:00 AM [...] to IBD medications. However, 's exposed to biologicsin utero should avoid the BCG vaccine until 6 months of age. documented in this encounterTogus [facility] Medical Center05-12-2025 History of Present illness Narrative* Tasneem Arreola RN - 06/21/2024 3:30 PM EDT Pt is here for visit Pt states she and baby are doing well, baby in NICU Pt reports incision is healing well, denies signs of infection. Pt has no concerns at this time Mortality Survey completed EPDS 4 * Norma Kinney MD - 06/21/2024 9:00 AM EDT Attending Attestation: I saw the patient. I participated and was physically present during the critical/hassan portions of the service. I was directly involved in the management and treatment plan of the patient. I reviewed the resident's note. Additional Notes/Findings: CC: Post Op Visit Summary from 06/14/24 note: Transferred from [place] 05/31/24 for small bowel obstruction at 28 [...] antihypertensive agent. She progressed from TPN to regulardiet prior to release home Released home on POD#10 for exploratory laparotomy and small bowel resection and POD#7 from primaryLTCS. S/p venofer 200 mg X 4 06/16/24 [...] for her Crohns Depression: Low Risk (06/21/2024) [place] Depression Scale Last EPDS Total Score: 4 [...] exam with her primary ob service in [place] Note to patient: The Century Cures Act makes medical notes like these available to patients inthe interest of transparency. However, be advised this is a medical document. It is intended as peer to peer communication. It is written in medical language and may contain abbreviations or verbiagethat are unfamiliar. It may appear blunt or direct. Medical documents are intended to carry relevant information, facts as evident, and the clinical opinion of the practitioner. * Belinda Pretty MD - 06/21/2024 9:00 AM EDT CLINIC VISIT Juan Luis Storey is a 33 y.o. female s/p XL with 70 cm of small bowel resection andanastomosis, lysis of adhesions, due to ischemic gangrenous small bowel on 05/31/24, and primary lowtransverse section d/t worsening preeclampsia with severe features (BP) on 06/03/24. Patient recently presented to [facility] on 06/16/24 for vaginal bleeding, right calf tenderness, and shortness of breath. She was diagnosed with a DVT and pulmonary embolism and was admitted for IV heparin.She was then discharged home on Eliquis 10 mg BID for 7 days followed by Eliquis 5 mg BID. Plan foranticoagulation for 6 months to one year. Since [...] of foul smelling discharge. ASSESSMENT/PLAN: Juan Luis Storey is a 33 y.o. female s/p PLTCS. [...] Pretty MD OBGYN PGY-4 documented in this encounterTogus [facility] Center05-05-2025 History of Present illness Narrative* Padmini Wilson MD - 06/14/2024 1:00 PM EDT Images from the original note were not [...] no hernia, no seroma, no swelling, Small openingsremaining in midline incision with good granulation tissue at the floor. Assessment: Doing well postoperatively. Plan: 1. Continue any current medications. 2. Wound care discussed. 3. Continue weight restrictions for a total of 6 weeks 4. Follow up: in 2-3 weeks documented in this encounterTogus [facility] Center05-05-2025 History of Present illness Narrative* Norma Kinney MD - 06/14/2024 10:15 AM EDT CC: Post Op Visit Transferred from [place] 05/31/24 for small bowel obstruction at 28 [...] antihypertensive agent. She progressed from TPN to regulardiet prior to release home Released home on POD#10 for exploratory laparotomy and small bowel resection and POD#7 from primaryLTCS. S/p venofer 200 mg X 4 Today [...] release from hospital. Depression: Low Risk (06/14/2024) [place] Depression Scale Last EPDS Total Score: 4 [...] medical notes like these available to patients inthe interest of transparency. However, be advised this is a medical document. It is intended as peer to peer communication. It is written in medical language and may contain abbreviations or verbiagethat are unfamiliar. It may appear blunt or direct. Medical documents are intended to carry relevant information, facts as evident, and the clinical opinion of the practitioner. * Nicol Nolasco CMA - 06/14/2024 10:15 AM EDT Pt here for 1wk post check up [...] home, no log today documented in this encounterTogus [facility] Medical Center04-21-2025 Miscellaneous Notes* Telephone Encounter - Chandni Harley PA-C - 05/31/2024 2:48 PM EDT Patient is [facility] after presenting yesterday for acute abdominal pain with CT findings suspicious for ileus versus obstruction. She went for emergent surgery today withGeneral surgery due to concern for ischemic bowel. [...] us arrange appropriate follow up for her. * Telephone Encounter - Sharda Montiel MD - 05/31/2024 2:48 PM EDT Noted, thank you for the update. She should be okay to proceed w next infliximab infusion around 06/28/2024, pending no concerns from surgery. The timing is to plan around her estimated delivery dateof 08/04/24. - if possible, would like OV scheduled same day as infusion I would recommend she hold her AZA for 1 week post-operatively, and then resume it. I would also like to check her trough levels and for antibodies. - order in * Telephone Encounter - Ariane Jarquin CMA - 05/31/2024 2:48 PM EDT Did you want to put her in for an appointment on the ? * Telephone Encounter - Sharda Montiel MD - 05/31/2024 2:48 PM EDT Yes, w HI or with me at 11am. Thank you. * Telephone Encounter - Ariane Jarquin CMA - 05/31/2024 2:48 PM EDT Patient still admitted. Appointment scheduled. * Telephone Encounter - Chandni Harley PA-C - 05/31/2024 2:48 PM EDT FYI biologic team, discussed with OBGYN resident and their plan is to keep patient admitted until her delivery due to high risk for labor. Asked them to notify us if she is still admitted 06/28 for inpt team to order her remicade infusion if needed. Dr. Montiel aware of plan. * Telephone Encounter - Tania Gayle - 05/31/2024 2:48 PM EDT This lady ended up undergoing emergency due to severe preeclampsia. I would like to proceed w trough level testing w IFX as a my previous messages and cont w planned infusion for 06/28/2024. - thank you documented in this encounterNortheastern Vermont Regional HospitalHEROZ04-21-2025 Telephone encounter Note* Telephone Encounter - Chandni Harley PA-C - 05/31/2024 2:48 PM EDT Patient is currently admitted at [facility] after presenting yesterday for acute abdominal pain with CT findings suspicious for ileus versus obstruction. She went for emergent surgery today withGeneral surgery due to concern for ischemic bowel. [...] us arrange appropriate follow up for her. [employer] Work Phone: [phone] Telephone encounter Note* Telephone Encounter - Sharda Montiel MD - 05/31/2024 2:48 PM EDT Noted, thank you for the update. She should be okay to proceed w next infliximab infusion around 06/28/2024, pending no concerns from surgery. The timing is to plan around her estimated delivery dateof 08/04/24. - if possible, would like OV scheduled same day as infusion I would recommend she hold her AZA for 1 week post-operatively, and then resume it. I would also like to check her trough levels and for antibodies. - order in [facility]04-21-2025 Telephone encounter Note* Telephone Encounter - Ariane Jarquin CMA - 05/31/2024 2:48 PM EDT Did you want to put her in for an appointment on the ? [facility]04-21-2025 Telephone encounter Note* Telephone Encounter - Sharda Montiel MD - 05/31/2024 2:48 PM EDT Yes, w HI or with me at 11am. Thank you. [facility]04-21-2025 Telephone encounter Note* Telephone Encounter - Ariane Jarquin CMA - 05/31/2024 2:48 PM EDT Patient still admitted. Appointment scheduled. [facility]04-21-2025 Telephone encounter Note* Telephone Encounter - Chandni Harley PA-C - 05/31/2024 2:48 PM EDT FYI biologic team, discussed with OBGYN resident and their plan is to keep patient admitted until her delivery due to high risk for labor. Asked them to notify us if she is still admitted 06/28 for inpt team to order her remicade infusion if needed. Dr. Montiel aware of plan. [employer]04-21-2025 Telephone encounter Note* Telephone Encounter - Tania Nalini - 05/31/2024 2:48 PM EDT This lady ended up undergoing emergency due to severe preeclampsia. I would like to proceed w trough level testing w IFX as a my previous messages and cont w planned infusion for 06/28/2024. - thank you [employer]04-16-2025 History of Present illness Narrative* Karli Coronado, SONIA - 05/26/2024 2:00 PM EDT Reason for Appointment: Patient ID: [...] (FOLVITE) 1,000 mcg, Oral, Every morning HYDROcodone-acetaminophen (Owendale) 5-325 MG tablet 1 tablet, Oral, Every [...] nursing note reviewed. Exam conducted with a verifying specialist present. Vitals: Estimated body mass index [...] of: Parish Valdez DO documented in this encounterRusk Rehabilitation [id number] History of Present illness Narrative* Lupe Barba RN - 05/24/2024 10:30 AM EDT Infusion start time: 1050 am Patient here for Avsola infusion. Patient denies any recent infectionsor on antibiotics, open wounds, recent/future surgery, vaccinations or insurance changes. IV started with 22g needle to right arm by Yaquelin Barba RN x1 attempt. Patient tolerated well. Avsola Lot# [id number] Exp- 10/11/2027 Time out performed prior to medication administration. Name, , medication(s) verified * Lupe Barba RN - 05/24/2024 10:30 AM EDT 1253 patient infusion complete. IV flushed with 20 ml normal saline. IV discontinued, catheter intact, vitals WNL. Patient tolerated infusion well documented in this encounterT[facility]04-04-2025 Miscellaneous Notes* Telephone Encounter - Raulito Jimenez DO - 05/14/2024 1:16 PM EDT Spoke with patient about echocardiogram results from [...] to mild mitral and pulmonic regurgitation and rebr-ja-wagowldd tricuspid regurgitation which would be the cause for her heart murmur Plan: No further evaluation is necessary at this time. documented in this [facility]04-04-2025 Telephone encounter Note* Telephone Encounter - Raulito Jimenez DO - 05/14/2024 1:16 PM EDT Spoke with patient about echocardiogram results from [...] to mild mitral and pulmonic regurgitation and tmal-ds-bykwxhdt tricuspid regurgitation which would be the cause for her heart murmur Plan: No further evaluation is necessary at this time. [facility]04-02-2025 History of Present illness Narrative* SIMI Frazier - 05/12/2024 2:30 PM EDT Reason for Appointment: Patient [...] (FOLVITE) 1,000 mcg, Oral, Every morning HYDROcodone-acetaminophen (Owendale) 5-325 MG tablet 1 tablet, Oral, Every [...] nursing note reviewed. Exam conducted with a verifying specialist present. Vitals: Estimated body mass index [...] week for routine OB appointment. Documented by Tierney Simmons NP on behalf of: SIMI Frazier documented in this encounterRusk Rehabilitation [id number] Evaluation + Plan note* Assessment & Plan Note - Raulito Jimenez DO - 05/06/2024 1:03 PM EDT Associated Problem(s): Anemia affecting fourth Patient with history of anemia and iron malabsorption due to chronic inflammatory bowel disease. Hemoglobin on 05/04 was 9.4 begin iron supplement that she had been prescribed. Advised patient that some of her symptoms of shortness of breath and tachycardia could be a result of low hemoglobin levels during [facility]03-27-2025 Miscellaneous Notes* Assessment & Plan Note - Raulito Jimenez DO - 05/06/2024 1:03 PM EDTAssociated Problem(s): Anemia affecting fourth Patient with history of anemia and iron malabsorption due to chronic inflammatory bowel disease. Hemoglobin on 05/04 was 9.4 begin iron supplement that she had been prescribed. Advised patient that some of her symptoms of shortness of breath and tachycardia could be a result of low hemoglobin levels during * Assessment & Plan Note - Raulito Jimenez DO - 05/06/2024 1:02 PM EDT Associated Problem(s): HTN complicating peripregnancy, antepartum, second [...] to seek medical care. documented in this encounterT[facility] Center03-27-2025 Evaluation + Plan note* Assessment & Plan Note - Raulito Jimenez DO - 05/06/2024 1:02 PM EDT Associated Problem(s): HTN complicating peripregnancy, antepartum, second [...] or chest pain to seek medical care. [facility]03-27-2025 History of Present illness Narrative* Raulito Jimenez DO - 05/06/2024 9:30 AM EDT Images from the original note were not included. [facility] [address] [place] [address] [place] [address] Patient: Juan Luis Storey Date of : 1990 Encounter Date: 05/06/2024 Subjective: Chief Complaint Chief Complaint Patient presents with Er Follow-up History of Present Illness Juan Luis Storey is a 33 y.o. female, established patient, that presents to the office for ER follow up for elevated blood pressure in patient Hypertension Chronicity: Seen at [facility] on 05/04/24 for shortness of breath, palpitations and tachycardia. She is 26 weeks . Condition status: Has been checking blood pressures at home and has been in 140's systolic. Associated symptoms include headaches (Occasional frontal headache. No changefrequency or severity of headache but BP is [...] 110 Temp 36.8 C (98.2 F) (Oral) Ht165.1 cm (5' 5 ) Wt 86.2 kg [...] left knee 12/23/2018 Anemia Anxiety Bowel obstruction ([facility]) 10/17/2017 Chronic diarrhea Colon stricture ([facility]) 04/02/2018 Crohn's colitis ([facility]) Crohn's disease ([facility]) Crohn's disease of both small and large intestine with intestinal obstruction ([facility]) 03/03/2018 Current chronic use of systemic steroids 03/03/2018 Depression Diarrhea 10/17/2017 Added automatically from request for surgery [id number] Difficulty sleeping 01/13/2019 Gall stones History of [...] 10/21/2017 Performed by Sharda Montiel MD at [facility] COLONOSCOPY w/ Bx's & polypectomy N/A 10/08/2021 Performed by Sharda Montiel MD at [facility] ENDOSCOPY EGD N/A 04/02/2018 Performed by Darshana Rae MD at [facility] LAPAROSCOPIC ILEOCECECTOMY, TAKE DOWN OF ILEODUDENAL FISTULA, DRAINAGE OF RETROPERITONEAL ABSCESS, OMENTAL PEDICLE FLAP N/A 04/02/2018 Performed by Jonathan Bautista MD at [facility] Family History Problem Relation Age [...] blood pressure with goal of BP less ivso983/80. Ordered echocardiogram (ultrasound of the heart) to evaluate the heart as the CT scan of chest you had in ED showed some hepatic vein reflux which could indicate a heart condition Follow-up: Keep appointment with Ob scheduled for May 11. We will contact with results of echocardiogram once available. - Raulito Jimenez DO 05/06/24 1:03 PM documented in this [facility]03-27-2025 Instructions* Patient Instructions* Raulito Jimenez DO - 05/06/2024 9:30 AM EDT Will start on labetalol 100 mg twice daily to help control blood pressure with goal of BP less dizj354/80. Ordered echocardiogram (ultrasound of the heart) to evaluate the heart as the CT scan of chest you had in ED showed some hepatic vein reflux which could indicate a heart condition * Attachments The following attachments cannot be sent through Care Everywhere. * High blood pressure and ([place]) documented in this [facility]03-17-2025 History of Present illness Narrative* Tierney Simmons NP - 04/26/2024 10:10 AM EDT Reason for Appointment: Patient ID: Juan [...] (FOLVITE) 1,000 mcg, Oral, Every morning HYDROcodone-acetaminophen (Owendale) 5-325 MG tablet 1 tablet, Oral, Every [...] nursing note reviewed. Exam conducted with a verifying specialist present. Vitals: Estimated body mass index [...] disease with complication, unspecified gastrointestinal tract location ([facility]) K50.919 Return OB: Patient presents [...] OB appointment. She does report she has spokento [facility] but does not yet have a scheduled appointment but will reach back out to them to schedule related to non visualized stomach during anatomy scan. Documented by Tierney Simmons NP on behalf of: Parish Valdez DO documented in this encounterRusk Rehabilitation [id number] Miscellaneous Notes* Telephone Encounter - Sharda Montiel MD - 04/19/2024 11:21 AM EDT Biologic team, please plan to administer her next infusion 1 week early, around 05/24/2024, to be followed by a subsequent dose around 06/28/2024, which would be around 6 weeks prior to her estimateddelivery date. Will then plan to resume shortly after delivery (once discharged from the hospital and back home), typically 24hrs after vaginal delivery and 48hrs after a , assuming no infection. Her due date is 08/11/24, but planned delivery is 08/04/24. Crystal, please print my most recent OV note and fax it to her open hearth helper, Dr. Parish Valdez DO at [facility]. Thank you. * Telephone Encounter - Ariane Jarquin CMA - 04/19/2024 11:21 AM EDT Faxed to [phone] * Telephone Encounter - Tania Gayle - 04/19/2024 11:21 AM EDT Zymfentra 120mg/ml PA was sent to plan via [facility] Hassan number: [id number] documented in this encounterTogus [facility] Center03-10-2025 Telephone encounter Note* Telephone Encounter - Sharda Montiel MD - 04/19/2024 11:21 AM EDT Biologic team, please plan to administer her next infusion 1 week early, around 05/24/2024, to be followed by a subsequent dose around 06/28/2024, which would be around 6 weeks prior to her estimateddelivery date. Will then plan to resume shortly after delivery (once discharged from the hospital and back home), typically 24hrs after vaginal delivery and 48hrs after a , assuming no infection. Her due date is 08/11/24, but planned delivery is 08/04/24. Ariane, please print my most recent OV note and fax it to her open hearth helper, Dr. Parish Valdez DO at [facility]. Thank you. [facility] CenterTriblio [id number] Telephone encounter Note* Telephone Encounter - Ariane Jarquin CMA - 04/19/2024 11:21 AM EDT Faxed to [phone] [facility] CenterTriblio [id number] Telephone encounter Note* Telephone Encounter - Tania Gayle - 04/19/2024 11:21 AM EDT Zymfentra 120mg/ml PA was sent to plan via [facility] Hassan number: [id number] [facility]03-10-2025 History of Present illness Narrative* Raf Zarco RN - 04/19/2024 10:30 AM EDT Infusion start time: 11:10 am Patient here for her Avsola infusion. Patient denies any recent infections or on antibiotics, open wounds, recent/future surgery, vaccinations or insurance changes. 10:50 am IV started with 22g needle to left AC by JAD Arroyo x1 attempt. Patient tolerated well. Avsola x 4 vials Lot# [id number] Exp- 09/10/2027 Time out performed prior to medication administration. Name, , medication(s) verified * Raf Zarco RN - 04/19/2024 10:30 AM EDT 1310 patient infusion complete. IV flushed with normal saline. 1313 IV discontinued, catheter intact, vitals WNL. Patient tolerated infusion well documented in this encounterTogus VA Medical Center03-10-2025 History of Present illness Narrative* Sharda Montiel MD - 04/19/2024 10:00 AM EDT [facility] [...] iron deficiency. She has not received her HAVvaccine yet. SIBDQ = 7, HBI = 2 [...] IBD outweighs the risk to the mother and/orfetus of continuing biologic therapy and that I [...] pain in the abdomen?: Hardly any of thetime How often during the last 2 weeks [...] by a feeling of having to go tothe bathroom even though your bowels were empty?: [...] score indicates worsening HR-QOL and more impact fromIBD (Minimum score = 1, maximum score = [...] 250 mL IVPB, 5 mg/kg, intravenous, Once, hSarda Montiel MD sodium chloride 0.9 % infusion, [...] left knee 12/23/2018 Anemia Anxiety Bowel obstruction ([facility]) 10/17/2017 Chronic diarrhea Colon stricture ([facility]) 04/02/2018 Crohn's colitis ([facility]) Crohn's disease ([facility]) Crohn's disease of both small and large intestine with intestinal obstruction ([facility]) 03/03/2018 Current chronic use of systemic steroids 03/03/2018 Depression Diarrhea 10/17/2017 Added automatically from request for surgery [id number] Difficulty sleeping 01/13/2019 Gall stones History of [...] 10/21/2017 Performed by Sharda Montiel MD at [facility] COLONOSCOPY w/ Bx's & polypectomy N/A 10/08/2021 Performed by Sharda Montiel MD at [facility] ENDOSCOPY EGD N/A 04/02/2018 Performed by Darshana Rae MD at [facility] LAPAROSCOPIC ILEOCECECTOMY, TAKE DOWN OF ILEODUDENAL FISTULA, DRAINAGE OF RETROPERITONEAL ABSCESS, OMENTAL PEDICLE FLAP N/A 04/02/2018 Performed by Jonathan Bautista MD at [facility] SOCIAL HISTORY: Social History Tobacco [...] VITAMIN B12: Lab Results Component Value Date [id number] 01/26/2024 FOLATE: Lab Results Component Value [...] 10, B12 nl, ferritin 6, iron low at42, TIBC 441, sat 10%, CBC w WBC [...] MCV wnl; otherwise unremarkable; CMP unremarkable; iron studiesnormal; B12 low at 177, thyroid studies normal [...] hemoglobin 11.5, platelets 536, otherwise unremarkable; CMP unremarkable,lipase normal; wk 5 labs on AZA Labs [...] at this time though certainly patient is atrisk for small bowel obstruction given the abnormalities in the terminal ileum. This patient shouldbe followed closely. 10/18/2017 MRE: At least 30 [...] with proximal small bowel dilatation likely related tohigh-grade partial or complete small bowel obstruction. Findings [...] Unremarkable esophagus. Normal duodenal bulb. Local mucosal changescharacterized by fistulous tract in the 2nd portion [...] nevertheless sometime in the next 6-12 months. Willobtain serologies in preparation for likely biologic to be started as an outpatient as well. Path: f ocal active colitis at the ICV and in [...] abscess with fibrosis. Skip lesions noted as wellas pseudopolyps in the cecum. Several fistulous tracts [...] proximal to that point. Colonoscopy 10/21/2017 showed asevere stricture at the TI that precluded intubation [...] was indeterminate, but in the setting of high- dose prednisone. This was repeated 11/14/2017 and found [...] a hysterectomy has been advised by her patient assessment coordinator, but that she was not ready to proceed. 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 She noted she was going to [...] Has received periodic IV iron infusions due toIDA 2/2 menorrhagia. RECS: To resume infliximab BUBBA. [...] BMs q1-2d w/o straining or bleeding, BSS 5- 6. No abd pain. Recent ESR, CRP wnl. [...] Overall, she reports she is feeling better. Noabdominal pain, nausea, vomiting, joint pain, visual changes.She will continue with her Imuran 150 mg daily. Continue with Imuran 150 mg daily. Her vitamin D level still low[place] [address] units q.week x8 and then back to [...] of worsening diarrhea and stool testing was unremar kable. This has since resolved, but was occurring [...] AZA 150mg/d and IFX 5mg/kg q6wks and folicacid. Cont monitoring labs every 3-6 months an annual thiopurine metabolite levels. Cont vitD 5000IU/d. Start PO iron and vitamin-C daily due to forgetfulness. - 10/2022: Her last IFX was 10/25/2022. She remains on AZA 150mg/d and folic acid 1mg/d. She is alsoon a MVI, PO iron + vitC daily, vitD 5000IU/d, B12 1mg/d. She's doing well overall, having1 BM/d, BSS 4-5. No bleeding and no abd pain. SIBDQ = 7, HBI = 0 c/w clnical remission. She doesn'tbelieve she got her HAV vaccination. Proceed w HAV vaccination. Will update nutritional markers. Con t infliximab 5mg/kg q6 wks and AZA 150mg/d [...] markers and cont monitoring therapeutic drug monitoring labs.Resume MVI containing iron. Patient Care Team: Hilary [...] her surgery in 2018, she has chronic R-sidedintermittent abd pain, worse w lying on that [...] uncontrolled IBD outweighs the risk to the motherand/or fetus of continuing biologic therapy and that I recommend continuing her treatment to maintain remission of her Crohn's. She was advised that if her disease appears to be well-controlled, we could consider stopping the AZA and continuing infliximab monotherapy if she can ensure compliance and not missing any doses. Otherwise, better to cont AZA at the very least given h/o missing infusionsand noncompliance in the past. Her estimated due [...] q6wks + AZA 150mg/d and folic acid 1mg/d.She never took the high dose vitD, but [...] her that the literature shows increased risk tothe due to a flare of IBD that typically outweighs the risk to the mother and/or fetus ofcontinuing biologic therapy. Increased IBD activity adversely affects outcomes and stabilization of disease and effective maintenance therapy throughout is important. Based on theongoin PIANO study, it has been demonstrated that [...] after vaginal delivery and 48hrs after a C- section, assuming no infection. Her due date is [...] findings of the ongoing PIANO study, The [place] Consensus Statements for the Management of Inflammatory Bowel Disease in , and the clinical care pathway released by the AGA. - AGA clinical practice update on -related gastrointestinal and liver disease: expert review (Gastroenterology. 2023;167(5):3832-8140). - Johnathan Farr, Rey Johnson, Ama N, et al. Inflammatory bowel disease in clinical carepathway: a report from the [place] gastroenterological association [facility]renthood project working group. Gastroenterology. 2019;156(5):7521-5576. - Johnathan Farr, Yady RA, Lobito CD. [...] (Stelara), in addition to newer agents such asthe synthetic oral small molecule Janus kinase (RANGEL) [...] screening for CRC every 1-3 years for patientswith disease involving 1/3 of the colon or [...] and strongly recommended annual f/u with a pedal assembler and regular use of skin protection -- [...] procedures Referring and communicating with other health health care social worker (not separately reported) Documenting clinical information [...] [facility] [place] [address] PH: [phone] Juan Luis was seen today for follow-up. Diagnoses and all orders for this visit: Thrombocytopenia (CMS-HCC) - CBC auto differential; Future Crohn's disease with complication, unspecified gastrointestinal tract location (CMS-HCC) - Vitamin D 25 hydroxy; Future - Vitamin B12; Future documented in this encounterNortheastern Vermont Regional HospitalNewCloud Networks [id number] Instructions* Patient Instructions* Sharda Montiel MD - 04/19/2024 10:00 AM EDT Labs - from today, 02/02/25, and 01/27/25 I recommend hepatitis A vaccines with your PCP, the health department, or any pharmacy; this is typically a series of 2 injections 3. show operations supervisor high dose vitamin D from the pharmacy Preventative Health Maintenance for Crohn's and ulcerative colitis -- Skin cancer prevention: I recommend annual follow up with a pedal assembler and regular use of skin protection given the increased risk of skin cancer, especially in patients on immunomodulator (Imuran / azathioprine / 6MP) or biologic medications (Remicade, Humira, Enyvio) -- Cervical cancer prevention: I recommend annual follow up with your open hearth helper doctor with annual papsmears -- Tobacco use: do not smoke or if you do, please try to quit as this will only worsen your diseasestatus and make it more difficult to control -- Sleep hygiene: sleep is very important for control of your disease; if you have having trouble, please discuss with your family doctor -- Nutrition: it is important you are eating a health and balanced diet; if you have having troublewith access to nutritious food, or if you would be interested in meeting with a library customer service clerk please let me or your family doctor know -- Vaccinations: please talk to your PCP or family doctor to ensure you are up to date on all age-appropriate vaccinations If you take azathioprine (Imuran), take folic acid supplement (1mg daily) to decrease side effects,and do not take Imuran with milk or juice as the milk or juice may render the medication ineffective. Link to useful pdf document on the role of diet in IBD: https://www.nutritioncaremanual.org/client_ed.cfm?ncm_client_ed_id=181 documented in this encounterT[facility]03-05-2025 History of Present illness Narrative* Karli Coronado, SONIA - 04/14/2024 1:40 PM EST Reason for Appointment: Patient ID: Juan Luis [...] nursing note reviewed. Exam conducted with a verifying specialist present. Vitals: Estimated body mass index [...] of: Parish Valdez DO documented in this encounterRusk Rehabilitation [id number] History of Present illness Narrative* SIMI Frazier - 03/17/2024 10:30 AM EST Reason for Appointment: Patient ID: Juan Luis [...] obtained without difficulty and patient was given msAFP order to have obtained. Orders Placed This Encounter Procedures US OB 14+ weeks anatomy scan CHLAMYDIA TRACHOMATIS (GENITO/STI) Neisseria gonorrhea DNA probe, direct Alpha fetoprotein, maternal Follow Up: Patient is to return to our office in 4 weeks for routine OB appointment Documented by SIMI Frazier on behalf of: SIMI Frazier documented in this encounterRusk Rehabilitation [id number] History of Present illness Narrative* Lupe Barba RN - 03/08/2024 10:00 AM EST Infusion start time: 1040 Patient here for Avsola infusion. Patient denies any recent infections oron antibiotics, open wounds, recent/future surgery, vaccinations or insurance changes. IV started with 22g needle to left forearm by Yaquelin Barba RN x1 attempt. Patient tolerated well. Avsola Lot# [id number] 2vials Exp- 09/10/2027 [id number] 2 vials Exp08/10/2027 Time out performed prior to medication administration. Name, , medication(s) verified * Raf Zarco RN - 03/08/2024 10:00 AM EST 10:40 am Time out performed with Yaquelin STREET. Avsola to be mixed and administered to patient per currenttreatment plan orders * Lupe Barba RN - 03/08/2024 10:00 AM EST 1240 patient infusion complete. IV flushed with 10 ml normal saline. IV discontinued, catheter intact, vitals WNL. Patient tolerated infusion well documented in this encounterNortheastern Vermont Regional HospitalXMOS [facility] Women'S HospitalPiogle01-24-9130 History of Present illness Narrative* Karli Coronado LPN - 02/18/2024 11:30 AM EST Reason for Appointment: Patient ID: Juan Luis [...] nursing note reviewed. Exam conducted with a verifying specialist present. Vitals: Estimated body mass index [...] or undercooked meat, and stay away [facility]. Patient has been consulted regarding any further do's and don'tsof . Patient voiced understanding and all questions and concerns were answered. Pt advisedto take a baby aspirin. Pt declined MFM referral at this time. Orders Placed This Encounter Procedures POCT urinalysis dipstick manually resulted Follow Up: Patient is to return in 4 weeks for routine OB appointment. Documented by Karli Coronado LPN on behalf of: Parish Valdez DO documented in this encounterRusk Rehabilitation [id number] History of Present illness Narrative* Veronica Klein LPN - 01/23/2024 10:00 AM EST Reason for Appointment: Patient ID: Juan Luis Storey is a 33 y.o. female who presents for Amenorrhea Patient presents today for a Nurse OB Intake appointment. Patient is 11w2d with a Estimated Date ofDelivery: 08/11/24 OB History Para Term AB Living [...] Diagnosis Date Acute Crohn's disease with complication ([facility]) At standard risk for fall [...] drink 6-8 glasses of water a day, eatno raw or undercooked meat, and stay away from [facility]. Patient has also been advised to not change litter boxes and eat 6 small meals a day. Patient has been consulted regarding the do's and don'ts ofpregnancy. Patient was given labs and all questions [...] by: Veronica Klein LPN documented in this encounterRusk Rehabilitation [id number] Miscellaneous Notes* Telephone Encounter - Raf Zarco RN - 12/17/2023 10:[address] Montiel, Patient called stating she took a urine test this past Friday and it was positive. She receives Inflectra 400 mg every 6 weeks for her Crohn's. She also takes Imuran 150 mg po daily. Ilesha is inquiring if she can continue taking her Imuran and Inflectra infusions? Please advise, thank you * Telephone Encounter - Sharda Montiel MD - 12/17/2023 10:55 AM EST Please let her know that in general multiple studies and research have shown that the increased risk to the from uncontrolled IBD outweighs the risk to the mother and/or fetus of continuingbiologic therapy. Uncontrolled IBD can affect outcomes and [...] any live vaccines until they are at -fushy-ymq. Breast-feeding on biologics and AZA appears to [...] send a letter to the family doctor/PCP, Welding Machine Tender, and appetizer packer advising against the use of live vaccines for the 1st 6 months of the baby's life and to monitor the baby closely for any signs of infection. Please send her the following as well: https://www.crohnscolitisfoundation.org/blog/lbytn-jbleu-eraxbz-yxwe-hwb-lachqsn -pf-fkjyxhdilut-flu-oeiqgec-thj-sjym I recommend an OV w me in 02/2024 or 03/2024 Please disregard notes below. Summary These recommendations are in accordance with the findings of the ongoing PIANO study, The [place] Consensus Statements for the Management of Inflammatory Bowel Disease in , and the clinical care pathway released by the AGA. - Johnathan Farr, Yady BROWN, Lobito CD. Drug Safety and Risk of Adverse Outcomes for Patients With Inflammatory Bowel Disease. Gastroenterology. 2017;152(2):451-462.e2. - Gastroenterology. 2016 Mar;150[3]:734-57 - Johnathan Farr, Rey C, Ama N, et al. Inflammatory bowel disease in clinical carepathway: a report from the [place] gastroenterological association ib[facility] parenthood project working group. Gastroenterology. 2019;156(5):3494-3861. * Telephone Encounter - Ariane Jarquin CMA - 12/17/2023 10:55 AM EST Spoke with patient regarding recommendations, sent via [employer]. Will call patient back when March schedule is out, she needs Mondays. documented in this encounterKettering Health Behavioral Medical CenterNexthink Hutzel Women'S HospitalSqbfso82-01-6485 Telephone encounter Note* Telephone Encounter - Raf Zarco RN - 12/17/2023 10:[address] Montiel, Patient called stating she took a urine test this past Friday and it was positive. She receives Inflectra 400 mg every 6 weeks for her Crohn's. She also takes Imuran 150 mg po daily. Ilesha is inquiring if she can continue taking her Imuran and Inflectra infusions? Please advise, thank you [facility]11-06-2024 Telephone encounter Note* Telephone Encounter - Sharda Montiel MD - 12/17/2023 10:55 AM EST Please let her know that in general multiple studies and research have shown that the increased risk to the from uncontrolled IBD outweighs the risk to the mother and/or fetus of continuingbiologic therapy. Uncontrolled IBD can affect outcomes and [...] any live vaccines until they are at bnsuu6-tqcva-uhj. Breast-feeding on biologics and AZA appears to [...] send a letter to the family doctor/PCP, Welding Machine Tender, and appetizer packer advising against the use of live vaccines for the 1st 6 months of the baby's life and to monitor the baby closely for any signs of infection. Please send her the following as well: https://www.crohnscolitisfoundation.org/blog/sekyz-dkhaq-awomfy-ytgj-coq-bbxmxpe -mp-hpnsoxftbpj-wyd-offgmxv-wlf-jjis I recommend an OV w me in 02/2024 or 03/2024 Please disregard notes below. Summary These recommendations are in accordance with the findings of the ongoing PIANO study, The [place] Consensus Statements for the Management of Inflammatory Bowel Disease in , and the clinical care pathway released by the AGA. - Johnathan Farr, Yady BROWN, Lobito CD. Drug Safety and Risk of Adverse Outcomes for Patients With Inflammatory Bowel Disease. Gastroenterology. 2017;152(2):451-462.e2. - Gastroenterology. 2016 Mar;150[3]:734-57 - Johnathan Farr, Rey C, Ama N, et al. Inflammatory bowel disease in clinical carepathway: a report from the lat[place] gastroenterological association [facility]d parenthood project working group. Gastroenterology. 2019;156(5):1010-7842. [employer]11-06-2024 Telephone encounter Note* Telephone Encounter - Ariane Jarquin CMA - 12/17/2023 10:55 AM EST Spoke with patient regarding recommendations, sent via [employer]. Will call patient back when March schedule is out, she needs Mondays. [employer]11-01-2024 History of Present illness Narrative* Raf Zarco RN - 12/12/2023 10:00 AM EDT Infusion start time: 10:50 am Patient here for Inflectra infusion. Patient denies any recent infections or on antibiotics, open wounds, recent/future surgery, vaccinations or insurance changes. 10:30am IV started with 22g needle to right hand by JAD Arroyo x1 attempt. Patient tolerated well. Inflectra x 4 vials Lot# [id number] Exp- 04/09/2028 Time out performed prior to medication administration. Name, , medication(s) verified * Raf Zarco RN - 12/12/2023 10:00 AM EDT 11:50 am patient infusion complete. IV flushed with 10 ml normal saline. IV discontinued, catheter intact, vitals WNL. Patient tolerated infusion well documented in this encounterTogus VA Medical Center10-21-2024 History of Present illness Narrative* Ree Museall, ACTING INSTRUCTOR-PATROL MAN - 12/01/2023 2:30 PM EDT Images from the original note were not included. [facility] [id number] 12/01/2023 Chief Complaint [...] is not anemic, her CBC is slightly improvedwith a hemoglobin at 12.8 and hematocrit 36.2. [...] ago. For some reason she lost to follow- up. She came back again with worsening fatigue [...] small and large intestine with intestinal obstruction ([facility]) Other Visit Diagnoses Iron deficiency - [...] procedures Referring and communicating with other health health care social worker (not separately reported) Documenting clinical information in the electronic or other health record Independently interpreting results (not separately reported) and communicating results to the patient/family/caregiver Care coordination (not separately reported) Please note that portions of this note may have been generated using voice recognition Share[employer] dictation software. Although every effort was made to ensure the accuracy of any automated transcriptions, some errors may have occurred. TERA Carbajal 12/01/23 1502 documented in this encounterKettering Health Behavioral Medical CenterOngo [id number] Instructions* Patient Instructions* TERA Carbajal - 12/01/2023 2:30 PM EDT Pending labs If iron is low, will order Injectafer IV If iron is low, will repeat labs in 3 months CBC-d iron panel ferritin If iron is normal, just follow up yearly as below Follow up yearly with labs same as above documented in this encounterKettering Health Behavioral Medical CenterNexthink Hutzel Women'S HospitalXabybk60-14-7926 History of Present illness Narrative* Raf Zarco RN - 10/31/2023 9:30 AM EDT IV Infusion start time: 944. Patient here for Inflectra infusion. Patient denies any recent infections or on antibiotics, open wounds, recent/future surgery, vaccinations or insurance changes. IV started with 22g needle to left hand by JAD Arroyo x1 attempt. Patient tolerated well. Inflectra x 4 vials Lot# [id number] Exp- [id number] Time out performed prior to medication administration. Name, , medication(s) verified * Raf Zarco RN - 10/31/2023 9:30 AM EDT 11:13 am patient infusion complete. IV discontinued, catheter intact, vitals WNL. Patient toleratedinfusion well documented in this encounterKettering Health Behavioral Medical CenterNexthink Hutzel Women'S HospitalLahasw02-44-2448 History of Present illness Narrative* Sharda Montiel MD - 10/31/2023 9:00 AM EDT [facility] CHIEF [...] iron deficiency. She has not received her HAVvaccine yet. SIBDQ = 7, HBI = 2 [...] by a feeling of having to go tothe bathroom even though your bowels were empty?: [...] score indicates worsening HR-QOL and more impact fromIBD (Minimum score = 1, maximum score = [...] obstruction (CMS-HCC) 10/17/2017 Chronic diarrhea Colon stricture ([facility]) 04/02/2018 Crohn's colitis (CMS-HCC) Crohn's disease ([facility]) Crohn's disease of both small and large intestine with intestinal obstruction ([facility]) 03/03/2018 Current chronic use of systemic steroids 03/03/2018 Depression Diarrhea 10/17/2017 Added automatically from request for surgery [id number] Difficulty sleeping 01/13/2019 Gall stones History of [...] 10/21/2017 Performed by Sharda Montiel MD at [facility] COLONOSCOPY w/ Bx's & polypectomy N/A 10/08/2021 Performed by Sharda Montiel MD at [facility] ENDOSCOPY EGD N/A 04/02/2018 Performed by Darshana Rae MD at [facility] LAPAROSCOPIC ILEOCECECTOMY, TAKE DOWN OF ILEODUDENAL FISTULA, DRAINAGE OF RETROPERITONEAL ABSCESS, OMENTAL PEDICLE FLAP N/A 04/02/2018 Performed by Jonathan Bautista MD at [facility] SOCIAL HISTORY: Social History Tobacco [...] VITAMIN B12: Lab Results Component Value Date [id number] 1,378 (H) 08/02/2021 FOLATE: Lab Results Component [...] 10, B12 nl, ferritin 6, iron low at42, TIBC 441, sat 10%, CBC w WBC [...] MCV wnl; otherwise unremarkable; CMP unremarkable; iron studiesnormal; B12 low at 177, thyroid studies normal [...] hemoglobin 11.5, platelets 536, otherwise unremarkable; CMP unremarkable,lipase normal; wk 5 labs on AZA Labs [...] at this time though certainly patient is atrisk for small bowel obstruction given the abnormalities in the terminal ileum. This patient shouldbe followed closely. 10/18/2017 MRE: At least 30 [...] with proximal small bowel dilatation likely related tohigh-grade partial or complete small bowel obstruction. Findings [...] Unremarkable esophagus. Normal duodenal bulb. Local mucosal changescharacterized by fistulous tract in the 2nd portion [...] nevertheless sometime in the next 6-12 months. Willobtain serologies in preparation for likely biologic to be started as an outpatient as well. Path: f ocal active colitis at the ICV and in [...] abscess with fibrosis. Skip lesions noted as wellas pseudopolyps in the cecum. Several fistulous tracts [...] proximal to that point. Colonoscopy 10/21/2017 showed asevere stricture at the TI that precluded intubation [...] was indeterminate, but in the setting of high- dose prednisone. This was repeated 11/14/2017 and found [...] a hysterectomy has been advised by her patient assessment coordinator, but that she was not ready to proceed. 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 She noted she was going to [...] Has received periodic IV iron infusions due toIDA 2/2 menorrhagia. RECS: To resume infliximab BUBBA. [...] BMs q1-2d w/o straining or bleeding, BSS 5- 6. No abd pain. Recent ESR, CRP wnl. [...] Overall, she reports she is feeling better. Noabdominal pain, nausea, vomiting, joint pain, visual changes.She will continue with her Imuran 150 mg daily. Continue with Imuran 150 mg daily. Her vitamin D level still low. [place] [address] units q.week x8 and then back to [...] of worsening diarrhea and stool testing was unremar kable. This has since resolved, but was occurring [...] AZA 150mg/d and IFX 5mg/kg q6wks and folicacid. Cont monitoring labs every 3-6 months an annual thiopurine metabolite levels. Cont vitD 5000IU/d. Start PO iron and vitamin-C daily due to forgetfulness. - 10/2022: Her last IFX was 10/25/2022. She remains on AZA 150mg/d and folic acid 1mg/d. She is alsoon a MVI, PO iron + vitC daily, vitD 5000IU/d, B12 1mg/d. She's doing well overall, having1 BM/d, BSS 4-5. No bleeding and no abd pain. SIBDQ = 7, HBI = 0 c/w clnical remission. She doesn'tbelieve she got her HAV vaccination. Proceed w HAV vaccination. Will update nutritional markers. Con t infliximab 5mg/kg q6 wks and AZA 150mg/d [...] her surgery in 2018, she has chronic R-sidedintermittent abd pain, worse w lying on that [...] shows for infusions and an OV (06/17/23, 06/10/23,04/14/23, and 06/17/22, 11/10/20 prior to this). Her last infusion of IFX was 09/15/2023. She never had the labs that were ordered after her last OV done. She remains on IFX 5mg/kg q6wks + AZA 150mg/d andfolic acid 1mg/d. She is on vitD 400IU/d and B12 1000mcg/d. She is no longer on PO iron or an MVI. R ecent labs show normal CBC and iron levels, [...] (Stelara), in addition to newer agents such asthe synthetic oral small molecule Janus kinase (RANGEL) [...] screening for CRC every 1-3 years for patientswith disease involving 1/3 of the colon or [...] and strongly recommended annual f/u with a pedal assembler and regular use of skin protection -- [...] procedures Referring and communicating with other health health care social worker (not separately reported) Documenting clinical information [...] or corrected. Thank you for your understanding. S. Bashar Almadani, MD, [place] [address] PH: [phone] Juan Luis was seen today for follow-up. [...] mouth in the morning. documented in this encounterKettering Health Behavioral Medical CenterNexthink Hutzel Women'S HospitalEjjgbw64-23-6199 Instructions* Patient Instructions* Sharda Montiel MD - 10/31/2023 9:00 AM [...] practice and you will need to seek carefor your Crohn's disease at another practice. Preventative Health Maintenance for Crohn's and ulcerative colitis -- Skin cancer prevention: I recommend annual follow up with a pedal assembler and regular use of skin protection given the increased risk of skin cancer, especially in patients on immunomodulator (Imuran / azathioprine / 6MP) or biologic medications (Remicade, Humira, Enyvio) -- Cervical cancer prevention: I recommend annual follow up with your open hearth helper doctor with annual papsmears -- Tobacco use: do not smoke or if you do, please try to quit as this will only worsen your diseasestatus and make it more difficult to control -- Sleep hygiene: sleep is very important for control of your disease; if you have having trouble, please discuss with your family doctor -- Nutrition: it is important you are eating a health and balanced diet; if you have having troublewith access to nutritious food, or if you would be interested in meeting with a library customer service clerk please let me or your family doctor know -- Vaccinations: please talk to your PCP or family doctor to ensure you are up to date on all age-appropriate vaccinations If you take azathioprine (Imuran), take folic acid supplement (1mg daily) to decrease side effects,and do not take Imuran with milk or juice as the milk or juice may render the medication ineffective. Link to useful pdf document on the role of diet in IBD: https://www.nutritioncaremanual.org/client_ed.cfm?ncm_client_ed_id=181 documented in this encounterTogus [facility] Center08-07-2024 History of Present illness Narrative* Hilary Aviles, ACTING INSTRUCTOR-PATROL MAN - 09/17/2023 9:20 AM EDT Subjective CC: depression/anxiety Patient ID: Juan Luis Storey is a 32 y.o. female. Anxiety Symptoms include nervous/anxious behavior. Patient reports no suicidal ideas. Juan Luis is here following up for anxiety and depression. She has been dealing with her mother's illness for the past month. Her mother had a severe stroke and the family are not in agreement regardingher care. She is currently at [facility] [...] past medical history, past social history, past surgicalhistory, problem list, and medication reconciliation was completed including current medication andpost discharge medication. Review of Systems Constitutional: Positive [...] of major depressive disorder without prior episode ([facility]) - citalopram (CeleXA) 20 mg tablet; Take 1.5 tablets (30 mg total) by mouth in the morning. Crohn's disease of both small and large intestine with intestinal obstruction ([facility]) Hilary Aviles APRN-PATROL MAN 09/17/23 6354 documented in this encounterTogus VA Medical Center08-05-2024 Miscellaneous Notes* Telephone Encounter - Sahrda Montiel MD - 09/15/2023 10:31 PM EDT Refill infusion orders received; approved for now. Must make 10/31/23 OV or can no longer receive infusions here until she is seen. * Telephone Encounter - Ariane Jarquin CMA - 09/15/2023 10:31 PM EDT Tried to call patient, busy signal. Sent MyChart message. * Telephone Encounter - Michela Martinez CMA - 09/15/2023 10:31 PM EDT Patient called. Updated. She verbalized understanding Thank You documented in this encounterTogus VA Medical Center08-05-2024 Telephone encounter Note* Telephone Encounter - Sharda Montiel MD - 09/15/2023 10:31 PM EDT Refill infusion orders received; approved for now. Must make 10/31/23 OV or can no longer receive infusions here until she is seen. [facility]08-05-[facility] Telephone encounter Note* Telephone Encounter - Ariane Jarquin CMA - 09/15/2023 10:31 PM EDT Tried to call patient, busy signal. Sent MyChart message. [facility]08-05-2024 Telephone encounter Note* Telephone Encounter - Michela Martinez CMA - 09/15/2023 10:31 PM EDT Patient called. Updated. She verbalized understanding Thank You [facility] [employer] [id number] History of Present illness Narrative* Raf Zarco RN - 09/15/2023 10:00 AM EDT IV Infusion start time: 10:30 am Patient here for Inflectra infusion. Patient denies any recent infections or on antibiotics, open wounds, recent/future surgery, vaccinations or insurance changes. IVstarted with 22g needle to right AC by JAD Arroyo x1 attempt. Patient tolerated well. Inflectra x 4 vials Lot# [id number] Exp- [id number] Time out performed prior to medication administration. Name, , medication(s) verified * Raf Zarco RN - 09/15/2023 10:00 AM EDT 12:10 pm patient infusion complete. IV discontinued, catheter intact, vitals WNL. Patient toleratedinfusion well documented in this encounterKettering Health Behavioral Medical CenterNexthink Hutzel Women'S HospitalNlsvbd61-19-6777 Miscellaneous Notes* Telephone Encounter - Aida Bustamante - 09/03/2023 2:57 PM EDT Patient presented to motel front desk attendant window and paid for FMLA today. FMLA faxed. documented in this encounterKettering Health Behavioral Medical CenterNexthink Hutzel Women'S HospitalFzubjj47-69-9369 Telephone encounter Note* Telephone Encounter - Aida Bustamante - 09/03/2023 2:57 PM EDT Patient presented to motel front desk attendant window and paid for FMLA today. FMLA faxed. [facility]07-24-[facility] History of Present illness Narrative* TERA Horton - 09/03/2023 10:00 AM EDT Video Visit via Real-time Synchronous Audiovisual Provider Location: [facility] [address] [place] [id number] Patient Location: Patient's home Video Visit Consent Statement: I discussed risks, benefits, and alternatives of a real-time synchronous audiovisual consultation with the patient (and any accompanying persons) including the risks that the patient's personal health details and medical records will be discussed over real-time, synchronous, interactive video/audio/telecommunication technology, the visit will not be recorded withoutthe express consent of both the provider and the patient, and that there are some limitations compared to bokg-jq-bjro evaluations. The patient consented to the presence [...] mother. States is having difficulty sleeping, although isvery fatigued. She was seen in this office on August 20, 2023, and started on Celexa. She has an office visit scheduled for 09/17/2023. She denies homicidal or suicidal thoughts. Appetite is decreased. initially did not eat for 72 hours, when heard about her mother's condition. Has good family dean pport. Timed visit of 14 minutes DX: Depression Continue Celexa FMLA/Disability paperwork completed Keep follow up appt on 09/17/2023 for depression TERA Horton 09/03/23 1308 documented in this encounterTogus VA Medical Center07-10-2024 History of Present illness Narrative* Hilary Aviles, ACTING INSTRUCTOR-PATROL MAN - 08/20/2023 2:00 PM EDT Subjective CC: depression and anxiety Patient ID: Juan Luis Storey is a 32 y.o. female. HPI Juan Luis presents for depression and anxiety. She has a history of depression. Although her mother who is 51 is dying. She is currently in the hospital with a brain bleed and is on a ventilator. She isnot expected to survive. She has one more [...] past medical history, past social history, past surgicalhistory, problem list, and medication reconciliation was completed including current medication andpost discharge medication. Review of Systems Constitutional: Positive [...] bring in FMLA paperwork to be completed. Willstart Celexa 20 mg daily. Instructed to follow [...] total) by mouth in the morning. TERA Horton 08/20/23 1530 [facility] History of Present illness Narrative* Raf Zarco RN - 08/04/2023 1:00 PM EDT IV Infusion start time: 1318. Patient here for Inflectra infusion. Patient denies any recent infections or on antibiotics, open wounds, recent/future surgery, vaccinations or insurance changes. IV started with 22g needle to left AC by JAD Arroyo x1 attempt. Patient tolerated well. Inflectra x 4 vials Lot# [id number] Exp- [id number] Time out performed prior to medication administration. Name, , medication(s) verified * Deisy Vera RN - 08/04/2023 1:00 PM EDT Time out performed @ 1345 with Raf Delatorre RN. 400 mg of Inflectra to be mixed and administered to patient per current treatment plan orders. * Rfa Zarco RN - 08/04/2023 1:00 PM EDT 1448 patient infusion complete. IV discontinued, catheter intact, vitals WNL. Patient tolerated infusion well Patient due for their Tuberculosis lab draw; order printed and given to patient. Instructed patientto have drawn; patient verbalized understanding of info given. documented [facility]24 Miscellaneous Notes* Telephone Encounter - Ariane Jarquin CMA - 06/18/2023 10:47 AM EDT Patient has missed the following appointments: 06/17/23 06/10/23 04/14/23 06/17/22 11/10/20 * Telephone Encounter - Chaparrita Nuno RN - 06/18/2023 10:47 AM EDT See other note for follow up [facility] Telephone encounter Note* Telephone Encounter - Ariane Jarquin CMA - 06/18/2023 10:47 AM EDT Patient has missed the following appointments: 06/17/23 06/10/23 04/14/23 06/17/22 11/10/20 [facility] Telephone encounter Note* Telephone Encounter - Chaparrita Nuno RN - 06/18/2023 10:47 AM EDT See other note for follow up [facility] Miscellaneous Notes* Telephone Encounter - Raf Zarco RN - 06/10/2023 11:16 AM EDT SANIYA Cheatham and Dr. Montiel, Patient was scheduled today for her Inflectra infusion; was a NO SHOW. She also no showed 04/14/23 Call placed to patient with no answer. Message left for patient to call office back in regards to rescheduling her infusion. * Telephone Encounter - Sharda Montiel MD - 06/10/2023 11:16 AM EDT Reviewing the chart it appears she has had multiple no shows even prior to this. Please send no-show / late cancellation fee notice and remind her of the no-show policy and that weare tracking this information. If she no-shows again, she may be discharged from the practice per office policy. Thank you. * Telephone Encounter - Raf Zarco RN - 06/10/2023 11:16 AM EDT Patient called and rescheduled 06/18/23 * Telephone Encounter - Raf Zarco RN - 06/10/2023 11:16 AM EDT Chaparrita, Patient NO SHOWED for her OV yesterday and did not come to her rescheduled infusion today (she NO SHOWED 06/10/23). * Telephone Encounter - Chaparrita Nuno RN - 06/10/2023 11:16 AM EDT No show policy letter sent via [employer] and certified mail. documented in this [facility]04-30-[facility]24 Telephone encounter Note* Telephone Encounter - Raf Zarco RN - 06/10/2023 11:16 AM EDT SANIYA Cheatham and Dr. Montiel, Patient was scheduled today for her Inflectra infusion; was a NO SHOW. She also no showed 04/14/23 Call placed to patient with no answer. Message left for patient to call office back in regards to rescheduling her infusion. [facility] Telephone encounter Note* Telephone Encounter - Sharda Montiel MD - 06/10/2023 11:16 AM EDT Reviewing the chart it appears she has had multiple no shows even prior to this. Please send no-show / late cancellation fee notice and remind her of the no-show policy and that weare tracking this information. If she no-shows again, she may be discharged from the practice per office policy. Thank you. [facility] Telephone encounter Note* Telephone Encounter - Raf Zarco RN - 06/10/2023 11:16 AM EDT Patient called and rescheduled 06/18/23 [facility] Tele[facility] encounter Note* Telephone Encounter - Raf Zarco RN - 06/10/2023 11:16 AM EDT Chaparrita, Patient NO SHOWED for her OV yesterday and did not come to her rescheduled infusion today (she NO SHOWED 06/10/23). [facility] Telephone encounter Note* Telephone Encounter - Chaparrita Nuno RN - 06/10/2023 11:16 AM EDT No show policy letter sent via [employer] and certified mail. [facility] [employer] [id number] Miscellaneous Notes* Telephone Encounter - Sharda Montiel MD - 04/21/2023 11:05 AM EDT Due for OV * Telephone Encounter - Lupe Barba RN - 04/21/2023 11:05 AM EDT There is nothing available for a recheck OV , can we use a new patient slot? * Telephone Encounter - Sharda Montiel MD - 04/21/2023 11:05 AM EDT Yes that's ok * Telephone Encounter - Ariane Jarquin CMA - 04/21/2023 11:05 AM EDT Left message for patient to call and schedule. * Telephone Encounter - Lupe Barba RN - 04/21/2023 11:05 AM EDT Message left for patient to call back. * Telephone Encounter - Eliz Zarco RN - 04/21/2023 11:05 AM EDT Patient is scheduled with Meaghan on June 16 at 11:15 am. Infusion is scheduled on June 09 at 10:30 am documented in this encounterT[facility]03-11-2024 Telephone encounter Note* Telephone Encounter - Sharda Montiel MD - 04/21/2023 11:05 AM EDT Due for OV [facility] Telephone encounter Note* Telephone Encounter - Lupe Barba RN - 04/21/2023 11:05 AM EDT There is nothing available for a recheck OV , can we use a new patient slot? [facility] Telephone encounter Note* Telephone Encounter - Sharda Montiel MD - 04/21/2023 11:05 AM EDT Yes that's ok [facility] Telephone encounter Note* Telephone Encounter - Ariane Jarquin CMA - 04/21/2023 11:05 AM EDT Left message for patient to call and schedule. [facility] Telephone encounter Note* Telephone Encounter - Lupe Barba RN - 04/21/2023 11:05 AM EDT Message left for patient to call back. [facility] Telephone encounter Note* Telephone Encounter - Eliz Zarco RN - 04/21/2023 11:05 AM EDT Patient is scheduled with Meaghan on June 16 at 11:15 am. Infusion is scheduled on June 09 at 10:30 am [facility] History of Present illness Narrative* Raf Zarco RN - 04/21/2023 10:00 AM EDT 1020 am Patient here for Inflectra infusion. Patient denies any recent infections, open wounds, recent/future surgery, or insurance changes . IV started with 22g needle to right hand by raf street x 1 attempt. Patient tolerated well. Inflectra x 4 vials Lot #[id number] Exp date 12/11/2027 * Deisy Vera RN - 04/21/2023 10:00 AM EDT Time out performed with Raf Delatorre RN. 400 mg of Inflectra to be mixed and administered to patient per current treatment plan orders. * Raf Zarco RN - 04/21/2023 10:00 AM EDT 1305 patient infusion complete. IV discontinued, catheter intact, vitals WNL. Patient tolerated infusion well documented in this encounterT[facility]03-04-2024 Miscellaneous Notes* Telephone Encounter - Nic Howard RN - 04/14/2023 11:47 AM EST Patient missed the visit. RN called patient and RN rescheduled patient for 04/21/2023. documented in this encounterT[facility]03-04-2024 Telephone encounter Note* Telephone Encounter - Nic Howard RN - 04/14/2023 11:47 AM EST Patient missed the visit. RN called patient and RN rescheduled patient for 04/21/2023. [facility] Miscellaneous Notes* Telephone Encounter - Nic Howard RN - 03/31/2023 8:12 AM EST RN was told that patient is calling regarding her insurance. The phone call was then transferred back to the infusion room. Patient states she lost her secondary insurance and wanted to know to what the amount she will be responsible for. RN informed patient to call her insurance company to find out that information. [facility] [id number] Telephone encounter Note* Telephone Encounter - Nic Howard RN - 03/31/2023 8:12 AM EST RN was told that patient is calling regarding her insurance. The phone call was then transferred back to the infusion room. Patient states she lost her secondary insurance and wanted to know to what the amount she will be responsible for. RN informed patient to call her insurance company to find out that information. [facility] [employer] [id number] History of Present illness Narrative* Lyndsey Anders MD - 02/20/2023 11:45 AM EST Images from the original note were not included. [address] [place] [id number] Patient: Juan Luis Storey Date of [...] past medical history, past social history, past surgicalhistory and problem list. PHYSICAL EXAMINATION: Vitals: 02/20/23 [...] is no right CVA tenderness, left CVA tendernessor guarding. Musculoskeletal: Cervical back: Normal range of [...] morning. LYNDSEY ANDERS MD Family Medicine Physician [facility] / 02/20/23 This note was completed with voice recognition software. The document was reviewed for errors however some may still be present. Please do not hesitate to contact/Epic msg the author to verify any questions/concerns. documented in this encounterT[facility]01-08-2024 History of Present illness Narrative* Lupe Barba RN - 02/17/2023 11:30 AM EST 1145 Patient here for Inflectra infusion. Patient denies any recent infections, open wounds, recent/future surgery, or insurance changes . Site cleansed with alcohol. IV started with 22g needle by Yaquelin Barba RN in right hand. Patient tolerated well. Lot # [id number] Exp 07/11/27 * Nic Howard RN - 02/17/2023 11:30 AM EST 1422 patient infusion complete. IV discontinued at 1422. Patient tolerated infusion well. documented in this encounterT[facility]12-28-2023 History of Present illness Narrative* Glenda Trinh RN - 02/06/2023 11:30 AM EST Patient is here for injectafer. She has had it before, denies issues or side effects. IV started, flushes well with brisk blood return, injectafer infused over 15 minutes. Patient observed for 30 minutes, tolerated infusion well without issues. IV flushed, saline locked, wrapped in coban. Patient given calendar, verbalized understanding of future appointments. Patient discharged in stable condition. [facility] Diagnosis Missed menses , unspecified gestational age Encounter for supervision of normal first in first trimester headache in first trimester documented in this encounter [facility]* Diagnosis Therapeutic drug monitoring- Primary Encounter for therapeutic drug monitoring documented [facility]* Diagnosis Second trimester state, incidental 15 weeks gestation of H/O oligohydramnios in prior , currently documented in this encounter [facility] HealthcareEvaluation note* Diagnosis Crohn's disease of both small and large intestine with intestinal obstruction (CMS-HCC)- Primary documented in [facility] encounter [facility]* Diagnosis Second trimester state, incidental 19 weeks gestation of Vaginal discharge Leukorrhea, not specified as infective STD exposure Screening, , for anatomic survey Encounter for anatomic survey documented in this encounter [facility] HealthcareEvaluation note* Diagnosis 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 deficiency anemia, unspecified Iron malabsorption Other specified intestinal malabsorption documented [facility]* Diagnosis Crohn's disease of both small and large intestine with intestinal obstruction (CMS-HCC)- Primary documented in [facility] encounter [facility]* Diagnosis Crohn's disease of both small and large intestine with intestinal obstruction (CMS-HCC)- Primary documented in [facility]* Diagnosis Reactive airway disease with acute exacerbation, unspecified asthma severity, unspecified whether persistent- Primary Shortness of breath COVID-19 Sinusitis, unspecified chronicity, unspecified location documented in this encounter [facility]* Diagnosis Crohn's disease of both small and large intestine with intestinal obstruction (CMS-HCC)- Primary documented in this encounter [facility]* Diagnosis Anxiety- Primary Anxiety state, unspecified documented in this encounter [facility]* Diagnosis Crohn's disease of both small and large intestine with intestinal obstruction (CMS-HCC)- Primary documented in this encounter [facility]* Diagnosis Reactive depression- Primary documented in this encounter [facility]* Diagnosis Crohn's disease of both small and large intestine with intestinal obstruction (CMS-HCC)- Primary documented in this encounter [facility]* Diagnosis Current moderate episode of major depressive disorder without prior episode (CMS-HCC)- Primary Crohn's disease of both small and large intestine with intestinal obstruction (CMS-HCC) [facility] Diagnosis Therapeutic drug monitoring- Primary Encounter for therapeutic drug monitoring Crohn's disease of both small and large intestine with other complication (CMS-HCC) documented in this encounter [facility]* Diagnosis Crohn's disease of both small and large intestine with intestinal obstruction (CMS-HCC)- Primary [facility]* Diagnosis Iron deficiency- Primary [...] deficiency anemia, unspecified documented in this encounter [facility]* Diagnosis Crohn's disease of both small and large intestine with intestinal obstruction (CMS-HCC)- Primary documented in this encounter [facility]* Diagnosis 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 Other specified intestinal malabsorption Iron deficiency anemia, unspecified documented in this encounter [facility]* Diagnosis Diabetes mellitus screening Screening for diabetes mellitus Second trimester state, incidental 23 weeks gestation of documented in this encounter [facility]* Diagnosis Thrombocytopenia (CMS-HCC)- Primary Unspecified thrombocytopenia Crohn's disease with complication, unspecified gastrointestinal tract location (CMS-HCC) documented in this encounter [facility]* Diagnosis Crohn's disease of colon with other complication (CMS-HCC)- Primary documented in this encounter [facility]* Diagnosis Ulcerative colitis with other complication, unspecified location (CMS-HCC)- Primary documented in this encounter [facility]* Diagnosis Second trimester state, incidental 23 weeks gestation of Crohn's disease with complication, unspecified gastrointestinal tract location (CMS/HCC) documented in this encounter [facility]* Diagnosis HTN complicating peripregnancy, antepartum, second trimester- Primary 26 weeks gestation of Anemia affecting fourth HTN, goal below 130/80 documented in this encounter [facility]* Diagnosis Second trimester state, incidental 27 weeks gestation of documented in this encounter [facility]* Diagnosis HTN complicating peripregnancy, antepartum, second trimester- Primary 26 weeks gestation of Anemia affecting fourth HTN, goal below 130/80 Crohn's disease of both small and large intestine with intestinal obstruction (CMS-HCC)- Primary documented in this encounter [facility]* Diagnosis Third trimester state, incidental History of Crohn's disease 29 weeks gestation of documented in this encounter [facility] note* Diagnosis HTN complicating peripregnancy, antepartum, second trimester- Primary 26 weeks gestation of Anemia affecting fourth HTN, goal below 130/80 Crohn's disease of colon with intestinal obstruction (CMS-HCC)- Primary documented in this encounter [facility]* Diagnosis HTN complicating peripregnancy, antepartum, second trimester- Primary 26 weeks gestation of Anemia affecting fourth HTN, goal below 130/80 Surgical followup- Primary documented in this encounter [facility]* Diagnosis HTN complicating peripregnancy, antepartum, second trimester- Primary 26 weeks gestation of Anemia affecting fourth HTN, goal below 130/80 S/P small bowel resection- Primary Other postprocedural status documented in this encounter [facility]* Diagnosis HTN complicating peripregnancy, antepartum, second trimester- Primary 26 weeks gestation of Anemia affecting fourth HTN, goal below 130/80 Surgical followup- Primary BP check Screening for hypertension History of severe pre-eclampsia documented in this encounter [facility]* Diagnosis HTN complicating peripregnancy, antepartum, [...] of digestive disease documented in this encounter [facility]* Diagnosis HTN complicating peripregnancy, antepartum, second trimester- Primary 26 weeks gestation of Anemia affecting fourth HTN, goal below 130/80 Crohn's disease of both small and large intestine with intestinal obstruction (CMS-HCC)- Primary documented in this encounter [facility]* Diagnosis HTN complicating peripregnancy, antepartum, second trimester- Primary 26 weeks gestation of Anemia affecting fourth HTN, goal below 130/80 S/P small bowel resection- Primary Other postprocedural status documented in this encounter [facility]* Diagnosis HTN complicating peripregnancy, antepartum, second trimester- Primary 26 weeks gestation of Anemia affecting fourth HTN, goal below 130/80 Other acute pulmonary embolism without acute cor pulmonale (CMS-HCC)- Primary Acute deep vein thrombosis (DVT) of distal end of right lower extremity (CMS-HCC) documented in this encounter [facility]* Diagnosis HTN complicating peripregnancy, antepartum, second trimester- Primary 26 weeks gestation of Anemia affecting fourth HTN, goal below 130/80 Other iron deficiency anemia- Primary documented in this encounter [facility]* Diagnosis 6 weeks follow-up [facility] Diagnosis HTN complicating peripregnancy, antepartum, second [...] intestinal obstruction (CMS-HCC) documented in this encounter [facility]* Diagnosis HTN complicating peripregnancy, antepartum, second trimester- Primary 26 weeks gestation of Anemia affecting fourth HTN, goal below 130/80 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 deficiency anemia, unspecified iron deficiency anemia type Iron malabsorption Other specified intestinal malabsorption documented in this encounter [facility]* Diagnosis HTN complicating peripregnancy, antepartum, second trimester- Primary 26 weeks gestation of Anemia affecting fourth HTN, goal below 130/80 Lumbar pain- Primary Lumbago documented in this encounter [facility]* Diagnosis HTN complicating peripregnancy, antepartum, second trimester- Primary 26 weeks gestation of Anemia affecting fourth HTN, goal below 130/80 Crohn's disease of both small and large intestine with intestinal obstruction (CMS-HCC)- Primary Lumbar pain Lumbago documented in this encounter [facility]* Diagnosis HTN complicating peripregnancy, antepartum, second trimester- Primary 26 weeks gestation of Anemia affecting fourth HTN, goal below 130/80 History of epidural anesthesia- Primary Acute midline low back pain without sciatica Lumbar pain Lumbago documented in this encounter [facility]* Diagnosis HTN complicating peripregnancy, antepartum, second trimester- Primary 26 weeks gestation of Anemia affecting fourth HTN, goal below 130/80 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 Other specified intestinal malabsorption Iron deficiency anemia, unspecified Lumbar pain Lumbago documented in this encounter [facility]* Diagnosis HTN complicating peripregnancy, antepartum, second trimester- Primary 26 weeks gestation of Anemia affecting fourth HTN, goal below 130/80 Iron malabsorption- Primary Other specified intestinal malabsorption Iron deficiency anemia due to chronic blood loss Iron deficiency anemia secondary to blood loss (chronic) Iron deficiency anemia, unspecified Lumbar pain Lumbago documented in this encounter [facility]* Diagnosis HTN complicating peripregnancy, antepartum, second trimester- Primary 26 weeks gestation of Anemia affecting fourth HTN, goal below 130/80 Crohn's disease of both small and large intestine with intestinal obstruction (CMS-HCC)- Primary documented in this encounter [facility]* Diagnosis Well woman exam with routine gynecological exam- Primary Routine gynecological examination [facility] Diagnosis HTN complicating peripregnancy, antepartum, second trimester- Primary 26 weeks gestation of Anemia affecting fourth HTN, goal below 130/80 Crohn's disease of both small and large intestine with intestinal obstruction (CMS-HCC)- Primary documented in this encounter [facility]* Diagnosis HTN complicating peripregnancy, antepartum, second trimester- Primary 26 weeks gestation of Anemia affecting fourth HTN, goal below 130/80 Open wound of nasal cavity, initial encounter- Primary Iron deficiency anemia, unspecified [facility] Diagnosis Encounter for consultation Menorrhagia with regular cycle documented in this encounter [facility]* Diagnosis HTN complicating peripregnancy, antepartum, second trimester- Primary 26 weeks gestation of Anemia affecting fourth HTN, goal below 130/80 Crohn's disease of both small and large intestine with intestinal obstruction ([facility]-HCC)- Primary [facility] [...] Care Everywhere. * Anxiety Discharge Instructions, Adult ([place]) documented in this encounterPro[facility] SystemInstructionsNot on file documented in this encounterProMedica Health SystemInstructionsNot on file documented in this encounterProMedica Health SystemInstructionsNot on file documented in this encounterProMedica [facility] SystemInstructions* Attachments The following attachments cannot be sent through Care Everywhere. * Depression ([place]) documented in this encounterProMedica Health SystemInstructionsNot on [...] Pulmonary embolism (blood clot in the lung) ([place]oldovan) documented in this encounterProHarrison Community Hospital SystemInstructionsNot on file documented in this encounterProHarrison Community Hospital SystemInstructionsNot on file documented in this encounterSouthern Ohio Medical Center SystemInstructions* Attachments The following attachments cannot be sent through Care Everywhere. * Low back pain in adults ([place]oldovan) documented in this encounterProHarrison Community Hospital SystemInstructionsNot on file documented in this encounterProHarrison Community Hospital SystemInstructionsNot on file documented in this encounterProHarrison Community Hospital SystemInstructionsNot on file documented in this encounterProHarrison Community Hospital SystemInstructions* Attachments The following attachments cannot be sent through Care Everywhere. * Diet and health ([place]oldovan) documented in this encounterSouthern Ohio Medical Center SystemReason for visit Narrative* Consultation (Routine) - Pending ReviewSpecialtyDiagnoses / ProceduresReferred By ContactReferred To ContactBLOOD MANAGEMENT Diagnoses Iron deficiency anemia, unspecified iron deficiency anemia type Sharda Montiel MD [address] [place] [address], [address] [place] [address] Phone: tel: fax: [facility] Blood Management Phone: tel: fax: Referral IDStatusReasonStart DateExpiration DateVisits RequestedVisits [id number] Review [facility] CenterReason for visit Narrative* Episode Based Medications (Routine) - Pending ReviewSpecialtyDiagnoses / ProceduresReferred By Contact Referred To Contact Diagnoses Crohn's disease of both small and large intestine with intestinal obstruction (CMS-HCC) Sharda Montiel MD [address] [place] [address], [address] [place] [address] Phone: tel: fax: [facility] [address] [place] [address] [place] [phone] Phone: tel: fax: Referral IDStatusReasonStart DateExpiration DateVisits RequestedVisits [id number] [id number] [facility] Summary Purpose Family History No Family History Records FoundNo Family History Records FoundNo Family History Records FoundNo Family History Records FoundNo Family History Records FoundNo Family History Records FoundNo Family History Records Found Advance Directives No Advanced Directives Records Found Date ActivatedDate InactivatedComments05/30/2024 7:30 PM06/10/2024 7:43 PMDate ActivatedDate InactivatedComments07/03/2019 3:39 PM07/03/2019 7:07 PMDate ActivatedDate InactivatedComments04/02/2018 11:45 AM3 4:06 PMDate ActivatedDate InactivatedComments10/17/2017 8:36 PM10/22/2017 7:23 PMDate Activated Date InactivatedComments07/03/2019 3:39 PM07/03/2019 7:07 PMDate ActivatedDate InactivatedComments04/02/2018 11:45 AM04/10/2018 4:06 PMDate ActivatedDate InactivatedComments10/17/2017 8:36 PM10/22/2017 7:23 PMCode StatusDate Activated Date InactivatedCommentsFull Code07/03/2019 3:39 PM07/03/2019 7:07 PMCode Status Date ActivatedDate InactivatedCommentsFull Code04/02/2018 11:45 AM04/10/2018 4:06 PMFull Code10/17/2017 8:36 PM10/22/2017 7:23 PMDate ActivatedDate Inactivated Comments07/03/2019 3:39 PM07/03/2019 7:07 PMDate ActivatedDate InactivatedComments 04/02/2018 11:45 AM04/10/2018 4:06 PMDate ActivatedDate InactivatedComments10/17/2017 8:36 PM10/22/2017 7:23 PMDate ActivatedDate InactivatedComments05/30/2024 7:30 PM TypeDate RecordedPatient RepresentativeExplanationDurable Power of Children'S Book Author 06/17/2024 5:06 PMPower of Children'S Book Author 06/17/2024dvance Directive06/17/2024 5:03 PM* Nick Harper Power of Children'S Book Author 06/17/2024Durable Power of Attorney06/17/2024 4:27 PMOhio [facility] Care Power of AttorneyDate ActivatedDate InactivatedComments06/16/2024 11:28 PM 06/18/2024 7:53 PMDate ActivatedDate InactivatedComments05/30/2024 7:30 PM06/10/2024 7:43 PMDate ActivatedDate InactivatedComments07/03/2019 3:39 PM07/03/2019 7:07 PM Date ActivatedDate InactivatedComments04/02/2018 11:45 AM3 4:06 PMDate ActivatedDate InactivatedComments10/17/2017 8:36 PM10/22/2017 7:23 PMName RelationshipHealthcare Agent RelationshipCommunicationRaymond SalazarSignificant OtherHealth Care Agent* [phone] (Applied [employer]) TypeDate RecordedPatient RepresentativeExplanationDurable Power of Children'S Book Author 06/24/2024 7:04 AMDurable Power of Attorney06/17/2024 5:06 PMPower of Children'S Book Author 06/17/2024dvance Directive06/17/2024 5:03 PM* Nick Harper Power of Children'S Book Author 06/17/2024Durable Power of Attorney06/17/2024 4:27 PMOhio Health Care Power of AttorneyNameRelationshipHealthcare Agent Relationship CommunicationRaymond SalazarSignificant OtherHealth Care Agent* NameRelationshipHealthcare Agent RelationshipCommunicationRaymond Harper Significant OtherHealth Care Agent* NameRelationshipHealthcare Agent RelationshipCommunicationRaymond Harper Significant OtherHealth Care Agent* NameRelationshipHealthcare Agent RelationshipCommunicationRaymond Harper Significant OtherHealth Care Agent* NameRelationshipHealthcare Agent RelationshipCommunicationRaymond Harper Significant OtherHealth Care Agent* NameRelationshipHealthcare Agent RelationshipCommunicationRaymond Harper Significant OtherHealth Care Agent* TypeDate RecordedPatient RepresentativeExplanationDurable Power of Children'S Book Author 06/24/2024 7:04 AMDurable Power of Attorney06/17/2024 5:06 PMPower of Children'S Book Author 06/17/2024dvance Directive06/17/2024 5:03 PM* Nick Medinaazar Power of Children'S Book Author 06/17/2024Durable Power of Attorney06/17/2024 4:27 PMOhio Health Care Power of AttorneyDate ActivatedDate InactivatedComments06/16/2024 11:28 PM 06/18/2024 7:53 PMDate ActivatedDate InactivatedComments05/30/2024 7:30 PM06/10/2024 7:43 PMDate ActivatedDate InactivatedComments07/03/2019 3:39 PM07/03/2019 7:07 PM Date ActivatedDate InactivatedComments04/02/2018 11:45 AM04/10/2018 4:06 PMDate ActivatedDate InactivatedComments10/17/2017 8:36 PM10/22/2017 7:23 PMName RelationshipHealthcare Agent RelationshipCommunicationRaymond SalazarSignificant OtherHealth Care Agent* NameRelationshipHealthcare Agent RelationshipCommunicationRaymond Harper Significant OtherHealth Care Agent* NameRelationshipHealthcare Agent RelationshipCommunicationRaymond Harper Significant OtherHealth Care Agent* NameRelationshipHealthcare Agent RelationshipCommunicationRaymond Harper Significant OtherHealth Care Agent* NameRelationshipHealthcare Agent RelationshipCommunicationRaymond Harper Significant OtherHealth Care Agent* NameRelationshipHealthcare Agent RelationshipCommunicationRaymond Harper Significant OtherHealth Care Agent* NameRelationshipHealthcare Agent RelationshipCommunicationRaymond Harper Significant OtherHealth Care Agent* NameRelationshipHealthcare Agent RelationshipCommunicationRaymond Harper Significant OtherHealth Care Agent* NameRelationshipHealthcare Agent RelationshipCommunicationRaymdenny Harper Significant OtherHealth Care Agent* Additional Source Comments INFORMATION SOURCE (unrecogn ized section and content) DATE CREATED AUTHOR 08/05/2017 [facility] DATE CREATED AUTHOR AUTHOR'S ORGANIZ ATION 06/26/2022 [facility] DATE CREATED AUTHOR AUTHOR'S ORGANIZ ATION 07/11/2024 [facility] DATE CREATED AUTHOR AUTHOR'S ORGANIZ ATION 11/16/2024 [facility] DATE CREATED AUTHOR AUTHOR'S ORGANIZ ATION 11/23/2024 [facility] DATE CREATED AUTHOR AUTHOR'S ORGANIZ ATION 12/23/2024 [facility] DATE CREATED AUTHOR AUTHOR'S ORGANIZ ATION 12/23/2024 [facility] Reason for Visit (unrecogniz ed section and content) ReasonCommentsAmenorrheaReasonCommentsRoutine VisitReasonComments Outpatient InfusionCrohn's DiseaseAvsolaSpecialtyDiagnoses / ProceduresReferred By ContactReferred To ContactGastroenterology Diagnoses Crohn's disease of both small and large intestine with intestinal obstruction Asola 5mg/kg (400mg) every 6 weeks/ Auth'd 01.20.24 - 01.18.25/ visits/ K50.812 Dr. Montiel NO ACCELERATED INFUSION Procedures INJECTION, INFLIXIMAB-AXXQ, BIOSIMILAR, (AVSOLA), 10 MG INFUSION Hilary Aviles, ACTING INSTRUCTOR-PATROL MAN [address] [facility] [address], [place] [address] Phone: tel: fax: [facility] [address] [place] [phone] Phone: tel: fax: Referral IDStatusReasonStart DateExpiration DateVisits RequestedVisits [id number]/10/202412/9/[id number] InfusionInjectaferSpecialtyDiagnoses / ProceduresReferred By ContactReferred To Contact Diagnoses Iron deficiency anemia due to chronic blood loss Iron deficiency anemia, unspecified Iron malabsorption Procedures MS INJ FERRIC CARBOXYMALTOS 1MG Mj Pizarro MD [address] [place] [address] Pfo Med Onc [address] [place] [address] Referral IDStatusReasonStart DateExpiration DateVisits RequestedVisits [id number]/15/20236/[id number] InfusionInflectraSpecialtyDiagnoses / ProceduresReferred By ContactReferred To ContactGastroenterology Diagnoses Crohn's disease of both small and large intestine with intestinal obstruction Inflectra 5mg/kg every 6 weeks, Auth'd for 9 visits 6.16.23-615.24, SA/Crohns Procedures MS INFLIXIMAB INJECTION INFUSION Hilary Aviles, ACTING INSTRUCTOR-PATROL MAN [address], [place] [address] [facility] [address] [place] [phone] Referral IDStatusReasonStart DateExpiration DateVisits RequestedVisits [id number] Review/[id number]lj CommentsOutpatient InfusioninflectraSpecialtyDiagnoses / ProceduresReferred By ContactReferred To ContactGastroenterology Diagnoses Crohn's disease of both small and large intestine with intestinal obstruction Procedures MS INFLIXIMAB INJECTION Referral IDStatusReasonStart DateExpiration DateVisits RequestedVisits [id number]/20/20242/082551UyialfKihzfvacMlvhsz Health ProblemReasonCommentsFMLAReasonCommentsAnxietyDepressionReasonCommentsFollow-up Patient is here for a follow up and denies any issues.ReasonCommentsFollow-up SpecialtyDiagnoses / ProceduresReferred By ContactReferred To Contact Gastroenterology Diagnoses Crohn's disease of both small and large intestine with intestinal obstruction Procedures MS INFLIXIMAB INJECTION ReasonCommentsOutpatient InfusionSpecialtyDiagnoses / ProceduresReferred By ContactReferred To ContactGastroenterology Diagnoses Crohn's disease of both small and large intestine with intestinal obstruction Asola 5mg/kg (400mg) every 6 weeks/ Auth'd 01.20.24 - 01.18.25/ visits/ K50.812 Dr. Montiel NO ACCELERATED INFUSION Procedures INJECTION, INFLIXIMAB-AXXQ, BIOSIMILAR, (AVSOLA), 10 MG INFUSION Hilary Aviles, ACTING INSTRUCTOR-PATROL MAN [address] [facility] [address], [place] [address] Phone: tel: fax: [facility] [address] [phone] Phone: tel: fax: ReasonCommentsEr Follow-upSpecialtyDiagnoses / ProceduresReferred By Contact Referred To Contact Diagnoses Crohn's disease of both small and large intestine with intestinal obstruction ([facility] [address] [place] [address], [address] [place] [address] Phone: tel: fax: [facility] [address] [phone] Phone: tel: fax: Referral IDStatusReasonStart DateExpiration DateVisits RequestedVisits [id number] [id number] CareReasonCommentsPost-opStaple removal, LAPAROTOMY EXPLORATORY, SMALL BOWEL RESECTION AND ANASTAMOSIS, AND LYSIS OF ADHESIONS. 05/31/24ReasonComments Abdominal PainPatient here for a hospital follow up. Patient had a bowel obstruction, followed with a . Patient states she has no current pain away.SpecialtyDiagnoses / ProceduresReferred By ContactReferred To Contact Gastroenterology Diagnoses Crohn's disease of both small and large intestine with intestinal obstruction Asola 5mg/kg (400mg) every 6 weeks/ Auth'd 01.20.24 - 01.18.25/ visits/ K50.812 Dr. Montiel NO ACCELERATED INFUSION Procedures INJECTION, INFLIXIMAB-AXXQ, BIOSIMILAR, (AVSOLA), 10 MG INFUSION Hilary Aviles, ACTING INSTRUCTOR-PATROL MAN [address], [place] [address] Phone: tel: fax: ReasonCommentsPost-opSmall bowel resection 05/31/2024ReasonCommentshospital dischargePE, rle dvt after ex lap for SBO 05/31 and 06/03.(please make next appt in [place])[id number] PPReasonCommentsBack PainReasonComments PaperworkReasonCommentsOutpatient InfusionInfedSpecialtyDiagnoses / Procedures Referred By ContactReferred To Contact Diagnoses Iron deficiency anemia due to chronic blood loss Iron deficiency anemia, unspecified Iron malabsorption Procedures MS INJ IRON DEXTRAN Jayjay Clayton ACTING INSTRUCTOR-PATROL MAN [address] [place] [address] Phone: tel: fax: Jayjay Clayton APRN-PATROL MAN [address] [place] [address] Phone: tel: fax: Referral IDStatusReasonStart DateExpiration DateVisits RequestedVisits [id number]/3/20257/3/[id number]roc Infusion avsolaSpecialtyDiagnoses / ProceduresReferred By ContactReferred To Contact Gastroenterology Diagnoses Crohn's disease of both small and large intestine with intestinal obstruction Asola 5mg/kg (400mg) every 6 weeks/ Auth'd 01.20.24 - 01.18./ visits/ K50.812 Dr. Montiel NO ACCELERATED INFUSION Procedures INJECTION, INFLIXIMAB-AXXQ, BIOSIMILAR, (AVSOLA), 10 MG INFUSION Hilary Aviles APRN-CNP [address], [place] [address] Phone: tel: fax: ReasonCommentsAbrasionReasonCommentsConsult Care Teams (unrecognized sec tion and content) Team MemberRelationshipSpecialtyStart DateEnd Date Hilary Aviles MD [address] [place] [address] Referring PhysicianNurse Practitioner10/08/22Team MemberRelationshipSpecialty Start DateEnd Date Hilary Aviles APRN-PATROL MAN [address], [place] [address] PCP - GeneralFamily Bmehaqtf76/23/24Team MemberRelationshipSpecialtyStart Date End Date Hilary Aviles MD [address] [place] [address] Referring PhysicianNurse Practitioner10/08/22Team MemberRelationshipSpecialty Start DateEnd Date Hilary Aviles MD [address] [place] [address] Referring PhysicianNurse Practitioner10/08/22Team MemberRelationshipSpecialty Start DateEnd Date Hilary Aviles MD [address] [place] [address] Referring PhysicianNurse Practitioner10/08/22am MemberRelationshipSpecialty Start DateEnd Date Hilary Aviles APRN-CNP [address], [place] [address] PCP - GeneralFamily Ncmpkfyt39/23/24Team MemberRelationshipSpecialtyStart Date End Date Hilary Aviles MD [address] [place] [address] Referring PhysicianNurse Practitioner10/08/22am MemberRelationshipSpecialty Start DateEnd Date Hilary Aviles MD [address] [place] [address] Referring PhysicianNurse Practitioner10/08/22am MemberRelationshipSpecialty Start DateEnd Date Hilary Aviles MD [address] [address] Referring PhysicianNurse Practitioner10/08/22am MemberRelationshipSpecialty Start DateEnd Date Hilary Aviles APRN-CNP [address], [place] [address] PCP - GeneralFamily Axabdyhp84/16/23Team MemberRelationshipSpecialtyStart Date End Date Hilary Aviles APRN-CNP [address], [place] [address] PCP - GeneralFamily Owmqgxwo92/16/23Team MemberRelationshipSpecialtyStart Date End Date Hilary [facility]iles [facility] [address], [place] [address] PCP - GeneralFamily Slhfdxgq22/16/23Team MemberRelationshipSpecialtyStart Date End Date Hilary Aviles [facility] [address], [place] [address] PCP - GeneralFamily Twcwltxk59/16/23Team MemberRelationshipSpecialtyStart Date End Date Hilary Aviles [facility] [address], [place] [address] PCP - Generalmily Bjzwybph48/16/23Team MemberRelationshipSpecialtyStart Date End Date Hilary Aviles [facility] [address], [place] [address] PCP - GeneralFamily Leyvkcla62/16/23Team MemberRelationshipSpecialtyStart Date End Date Hilary Aviles [facility] [address], [place] [address] PCP - GeneralFamily Fwsfsbdl87/16/23Team MemberRelationshipSpecialtyStart Date End Date Hilary Aviles [facility] [address], [place] [address] PCP - GeneralFamily Hdxnjaaw90/16/23Team MemberRelationshipSpecialtyStart Date End Date Hilary Aviles [facility] [address], [place] [address] PCP - [facility] Uyfwavpq35/16/23Team MemberRelationshipSpecialtyStart Date End Date Hilary Aviles [facility] [address], [place] [address] PCP - [facility] Mnxjgoiz00/16/23Team MemberRelationshipSpecialtyStart Date End Date Hilary Aviles [facility] [address], [place] [address] PCP - [facility]12/26/22Team MemberRelationshipSpecialtyStart Date End Date Hilary Aviles [facility] [address], [place] [address] [facility] - [facility] Heilmlwt01/16/23Team MemberRelationshipSpecialtyStart Date End Date Hilary Aviles [facility] [address], [place] [address] PCP - Generalmily Fhkkchet67/16/23Team MemberRelationshipSpecialtyStart Date End Date Hilary Aviles [facility] [address], [place] [address] PCP - Generalmily Wpjlduyf23/16/23Team MemberRelationshipSpecialtyStart Date End Date Hilary Aviles [facility] [address], [place] [address] PCP - GeneralCass [facility] Systemly Wbaudgef25/23/24Team MemberRelationshipSpecialtyStart Date End Date Hilary Aviles [facility] [address], [place] [address] PCP - [facility] Bkiscstk16/23/24Team MemberRelationshipSpecialtyStart Date End Date Hilary Aviles MD [address] [facility] [place] [address] Referring PhysicianNSaint Luke's Hospital10/08/22Team MemberRelationshipSpecialty Start DateEnd Date Hilary Aviles [facility] [address], [place] [address] PCP - [facility] Ypgxayxx60/23/24Team MemberRelationshipSpecialtyStart Date End Date Hilary Aviles [facility] [address], [place] [address] PCP - [facility] Vbtfibqn97/23/24Team MemberRelationshipSpecialtyStart Date End Date Hilary [facility]iles [facility] [address], Matthew [place] [address] PCP - GeneralFamily Kohxmgqe25/23/24Team MemberRelationshipSpecialtyStart Date End Date Hilary Aviles MD [address] [address] Referring PhysicianNurse Practitioner10/08/22am MemberRelationshipSpecialty Start DateEnd Date Hilary Aviles APRN-PATROL MAN [address], [place] [address] PCP - GeneralFamily Ivhxkopa71/23/24Team MemberRelationshipSpecialtyStart Date End Date Hilary Aviles MD [address] [place] [address] Referring PhysicianNurse Practitioner10/08/22am MemberRelationshipSpecialty Start DateEnd Date Hilary Aviles MD [address] [place] [address] Referring PhysicianNurse Practitioner10/08/22am MemberRelationshipSpecialty Start DateEnd Date Hilary Aviles APRN-PATROL MAN [address], [place] [address] PCP - GeneralFamily Seibarrm05/23/24Team MemberRelationshipSpecialtyStart Date End Date Hilary Aviles APRN-PATROL MAN [address], [place] [address] PCP - GeneralFamily Ohphzqly83/23/24Team MemberRelationshipSpecialtyStart Date End Date Hilary Aviles APRN-PATROL MAN [address], [place] [address] PCP - Generalmily Keghvhud74/23/24Team MemberRelationshipSpecialtyStart Date End Date Hilary Aviles [facility] [address], [place] [address] PCP - Generalmily Nndnmrrt40/23/24Team MemberRelationshipSpecialtyStart Date End Date Hilary Aviles [facility] [address], [place] [address] PCP - [facility] Nnfyakve78/23/24Team MemberRelationshipSpecialtyStart Date End Date Hilary Aviles [facility] [address], Matthew Russ [facility] [address] PCP - [facility] Zmubffcg16/23/24Team MemberRelationshipSpecialtyStart Date End Date Hilary Aviles [facility] [address], Matthew [place] [address] PCP - Generalmily Bzyljeeg57/23/24Team MemberRelationshipSpecialtyStart Date End Date Hilary Aviles [facility] [address], [place] [address] PCP - Generalmily Zafqpbim49/23/24Team MemberRelationshipSpecialtyStart Date End Date Hilary Aviles MD [address] [place] [place] [address] Referring PhysicianNSaint Luke's Hospital10/08/22Team MemberRelationshipSpecialty Start DateEnd Date Hilary Aviles [facility] [address], [place] [address] PCP - [facility]01/03/24Te MemberRelationshipSpecialtyStart Date End Date Hilary Aviles [facility] [address], [place] [address] [facility] - [facility]01/03/24Team MemberRelationshipSpecialtyStart Date End Date Hilary Aviles [facility] [address], [place] [address] PCP - [facility]01/03/24Te MemberRelationshipSpecialtyStart Date End Date Hilary Aviles [facility] [address], [place] [address] PCP - [facility]01/03/24Team MemberRelationshipSpecialtyStart Date End Date Hilary Aviles [facility] [address], Matthew Russ [facility] [address] PCP - [facility]01/03/24Team MemberRelationshipSpecialtyStart Date End Date Hilary Aviles [facility]NP[facility] [address], Matthew Russ [facility] [place] [address] PCP - [facility]01/03/24Team MemberRelationshipSpecialtyStart Date End Date Hilary Aviles [facility] [address], [place] [address] PCP - [facility] Xygntmzq87/23/24Team MemberRelationshipSpecialtyStart Date End Date Hilary Aviles [facility] [address], [place] [address] PCP - [facility]01/03/24Team MemberRelationshipSpecialtyStart Date End Date Hilary Aviles [facility] [address], [place] [address] PCP - [facility]01/03/24Team MemberRelationshipSpecialtyStart Date End Date Hilary Aviles MD [address] [facility] [place] [address] Referring PhysicianNSaint Luke's Hospital10/08/22Team MemberRelationshipSpecialty Start DateEnd Date Hilary Aviles [facility] [address], Matthwe [place] [place] [address] PCP - [facility]01/03/24Team MemberRelationshipSpecialtyStart Date End Date Hilary Aviles MD [address] [place] [place], [place] [id number] Referring PhysicianNurse Practitioner10/08/22Team MemberRelationshipSpecialty Start DateEnd Date Hilary Aviles, ACTING INSTRUCTOR-PATROL MAN [address], [place] [address] PCP - GeneralFamily Wadyplqg45/23/24 FOR RECORDS PERTAINING TO PATIENTS WHO ARE [...] THE PRIMARY CLINICAL RECORDS. [facility]. provides no warranty or guarantee of the accuracy or completeness of information in this document.
[2024-12-31 10:51] LABS: Thyroid Stimulating Hormone 1.510 uIU/mL (0.358-3.740)
[2024-12-31 10:52] LABS: INR 1.00; Partial Thromboplastin Time 24.6 sec (22.3-36.2); Prothrombin Time 10.6 sec (9.0-11.6)
[2024-12-31 13:05] LABS: Hematocrit 30.9 % (36.0-48.0); Hemoglobin 9.0 g/dL (12.0-16.0); Immature Granulocytes Abs Auto 0.00 10^3/uL (0.00-0.03); Immature Granulocytes Pct Auto 0.0 % (0.0-0.5); Lymphocytes Absolute Auto 1.7 10^3/uL (1.2-3.8); Mean Corpuscular HGB Conc 29.1 g/dL (29.9-35.2); Mean Corpuscular Hemoglobin 23.7 pg (26.7-34.0); Mean Corpuscular Volume 81.5 fL (81.0-99.0); Platelet Count 263 10^3/uL (150-450); Red Blood Count 3.79 10^6/uL (4.20-5.40); White Blood Count 3.7 10^3/uL (4.0-11.0)
== END 2024-12-31 09:03 | disposition home or self-care (01) ==
LOC: US 09:02
PROVIDERS: Visit Provider Obstetrics & Gynecology
DX: N92.0 Excessive and frequent menstruation with regular cycle (principal); N83.201 Unspecified ovarian cyst, right side; N83.202 Unspecified ovarian cyst, left side
CPT/HCPCS: 36415; 76830; 76856; 83036; 84439; 84443; 84702; 85025; 85610; 85730